=== PATIENT | male | born 1950 | race American Indian/Alaskan Native ===

== ENCOUNTER 2016-09-15 10:00 | Emergency (ER) | payer MEDICARE ==
--- NOTE | 2016-09-15 10:59 | Emergency Department Report ---
ED Syncope HPI - General Chief Complaint: Syncope Stated Complaint: PASSED OUT/HIT HEAD Time Seen by Provider: 09/15/16 10:46 - History of Present Illness Initial Comments: Patient is a 66-year-old male with a history of hypertension, hyperlipidemia who presents status post syncope yesterday. Patient reports he felt like he was going to pass out and then got up to get some air when he passed out and struck the left side of his head and his left hand on the steel door frame. She denies any prior hip history of syncope. Patient now complaining of left- sided swelling to the head, headache, left hand pain. Otherwise patient reports his in his normal state of health and feels like his normal baseline today. Otherwise no fevers, chills, dizziness, double vision, chest pain, shortness of breath, nausea, vomiting, diarrhea, abdominal pain, extremity pain , paresthesias, paralysis, gait difficulty, travel, or sick contacts. PMD: Dr. Villagran - Related Data Allergies/Adverse Reactions: Allergies No Known Allergies Allergy (Unverified 09/29/13 14:48) Home Medications: Ambulatory Orders amLODIPine [Norvasc] 10 mg PO DAILY #30 tab 09/30/13 Clopidogrel [Plavix] 75 mg PO QDAY #30 tablet 04/06/15 Aspirin [Adult Low Dose Aspirin EC] 81 mg PO DAILY 05/18/15 Adult Low Dose Aspirin EC 81 mg PO DAILY 09/15/16 Cetirizine HCl [Allergy Relief] 10 mg PO DAILY 09/15/16 Clopidogrel [Plavix] 75 mg PO QDAY 09/15/16 Gabapentin [Gralise] 600 mg PO QHS 09/15/16 Meloxicam [Mobic] 15 mg PO DAILY 09/15/16 Metoprolol [Lopressor] 12.5 mg PO BID 09/15/16 Oxycodone HCl/Acetaminophen [Percocet 10/325 mg] 1 each PO Q6HR PRN 09/15/16 Pantoprazole [Protonix] 40 mg PO QDAY 09/15/16 amLODIPine [Norvasc] 10 mg PO DAILY 09/15/16 ED Review of Systems ROS: Stated complaint: PASSED OUT/HIT HEAD Other details as noted in HPI Comment: All other systems reviewed and negative ED Past Medical Hx - Past Medical History Previous Medical History?: Yes Hx Hypertension: Yes Hx Congestive Heart Failure: No Hx Diabetes: No Hx Arthritis: Yes Hx Asthma: No Hx COPD: No Hx HIV: No - Surgical History Past Surgical History?: Yes Additional Surgical History: hernia, head sutures - Social History Smoking Status: Current Some Day Smoker Substance Use Type: Alcohol - Medications Home Medications: Home Medications Medication Instructions Recorded Confirmed Last Taken Type amLODIPine [Norvasc] 10 mg PO DAILY #30 tab 09/30/13 09/15/16 09/15/16 Rx Clopidogrel [Plavix] 75 mg PO QDAY #30 tablet 04/06/15 09/15/16 09/15/16 Rx Aspirin [Adult Low Dose Aspirin EC] 81 mg PO DAILY 05/18/15 09/15/16 09/15/16 History Adult Low Dose Aspirin EC 81 mg PO DAILY 09/15/16 09/15/16 09/15/16 History Cetirizine HCl [Allergy Relief] 10 mg PO DAILY 09/15/16 09/15/16 09/15/16 History Clopidogrel [Plavix] 75 mg PO QDAY 09/15/16 09/15/16 09/15/16 History Gabapentin [Gralise] 600 mg PO QHS 09/15/16 09/15/16 09/14/16 History Meloxicam [Mobic] 15 mg PO DAILY 09/15/16 09/15/16 09/15/16 History Metoprolol [Lopressor] 12.5 mg PO BID 09/15/16 09/15/16 09/15/16 History Oxycodone HCl/Acetaminophen 1 each PO Q6HR PRN 09/15/16 09/15/16 09/15/16 History [Percocet 10/325 mg] Pantoprazole [Protonix] 40 mg PO QDAY 09/15/16 09/15/16 09/15/16 History amLODIPine [Norvasc] 10 mg PO DAILY 09/15/16 09/15/16 09/15/16 History ED Physical Exam - General Limitations: No Limitations General appearance: alert, in no apparent distress - Head Head exam: Present: normocephalic, other (Large L sided scalp hematoma) - Eye Eye exam: Present: normal appearance, PERRL, EOMI. Absent: scleral icterus, conjunctival injection, nystagmus, periorbital swelling, periorbital tenderness Pupils: Present: normal accommodation - ENT ENT exam: Present: normal exam, normal orophraynx, mucous membranes moist - Neck Neck exam: Present: normal inspection - Respiratory Respiratory exam: Present: normal lung sounds bilaterally. Absent: respiratory distress - Cardiovascular Cardiovascular Exam: Present: regular rate, normal rhythm. Absent: systolic murmur, diastolic murmur, rubs, gallop - GI/Abdominal GI/Abdominal exam: Present: soft, normal bowel sounds - Rectal Rectal exam: Present: deferred - Extremities Exam Extremities exam: Present: tenderness (L hand) - Expanded Upper Extremity Exam Left General: Present: other (swelling and ecchymoses to L hand) Shoulder Exam: Present: normal inspection Upper Arm exam: Present: swelling, ecchymosis Elbow exam: Present: normal inspection, full ROM. Absent: tenderness Forearm Wrist exam: Present: normal inspection, full ROM. Absent: tenderness, swelling, deformity Hand Wrist exam: Present: normal inspection, full ROM. Absent: tenderness, swelling Hand L/R Front: 1 - Positive: other (Ecchymoses) Hand L/R Back: 1 - Swelling and ecchymoses Neuro motor exam: Present: wrist extension intact, thumb opposition intact, thumb IP flexion intact, thumb adduction intact, fingers 2-5 abduction intact Neurosensory exam: Present: 2-point discrimination Vascular: Present: normal capillary refill. Absent: vascular compromise - Back Exam Back exam: Present: normal inspection - Neurological Exam Neurological exam: Present: alert, oriented X3 - Psychiatric Psychiatric exam: Present: normal affect, normal mood - Skin Skin exam: Present: warm, dry, intact, normal color. Absent: rash ED Course Vital Signs 09/15/16 10:14 Temperature 98 F Pulse Rate 75 Respiratory 16 Rate Blood Pressure 147/98 O2 Sat by Pulse 99 Oximetry ED Medical Decision Making - Lab Data Result diagrams: 09/15/16 11:09/15/16 11:01 - EKG Data -: EKG Interpreted by Me - EKG Data 09/15/16 11:12 EKG 10:58 Normal sinus rhythm at 79 bpm, QTC 449 ms, T wave inversions in 2-3 aVF and V3 through V6, no ST changes, no STEMI No acute changes as compared to EKG from 05/18/2015 - Radiology Data Radiology results: report reviewed CT head: No acute intracranial findings, no prior change compared to 04/04/2015 CT C-spine: No acute fracture or subluxation, cervical spondylosis X-ray left hand: No Acute findings no fractures or dislocations - Medical Decision Making results discussed with patient. Pt to follow up with his pMD this week Potassium repleted with 40meq Critical care attestation.: If time is entered above; I have spent that time in minutes in the direct care of this critically ill patient, excluding procedure time. ED Disposition Clinical Impression: Syncope, Hematoma of scalp, Hand contusion Disposition: - TO HOME OR SELFCARE Is pt being admited?: No Condition: Stable Instructions: Syncope (ED), Scalp Contusion in Adults (ED), Contusion in Adults (ED) Referrals: PRIMARY CARE, [Referring] - 3-5 Days
--- NOTE | 2016-09-15 11:03 | Cat Scan Report ---
CT HEAD WITHOUT CONTRAST: HISTORY: Syncope, headache. TECHNIQUE: Sequential CT images without contrast. FINDINGS: Images obtained show bilateral prominence of the sulci and ventricles. There are no abnormal intra- or extra-axial blood or fluid collections. There are no focal masses or evidence of mass effect. The larios white matter differentiation appears within normal limits. Regions of periventricular decreased attenuation are consistent with microangiopathic ischemic disease. The posterior fossa structures including the fourth ventricle, cerebellum, and brainstem appear normal. IMPRESSION: Evidence of mild atrophy and microangiopathic ischemic disease. No acute intracranial process noted. No significant change since 04/04/15.
--- NOTE | 2016-09-15 11:40 | Cat Scan Report ---
CT SCAN OF THE CERVICAL SPINE: HISTORY: Neck pain. TECHNIQUE: Contiguous 1.25 mm axial images of the cervical spine were obtained. Sagittal and coronal reformatted images. FINDINGS: There is normal alignment of the cervical spine. The body, pedicles and posterior ligaments appear normal. No evidence of fracture or subluxation is seen. Moderate degenerative disc disease at C5-6 and C6-7 is noted. The spinal canal appears normal. The prevertebral soft tissues appear normal. IMPRESSION: Cervical spondylosis. No acute process is noted.
[2016-09-15 11:44] LABS: Basophils % (Auto) 0.6 % (0.0-1.8); Eosinophils % (Auto) 1.9 % (0.0-4.3); Hematocrit 44.3 % (35.5-45.6); Hemoglobin 14.5 gm/dl (11.8-15.2); Mean Corpuscular HGB Conc 33 % (32-34); Mean Corpuscular Hemoglobin 28 pg (28-32); Mean Corpuscular Volume 84 fl (84-94); Platelet Count 186 K/mm3 (140-440); Red Blood Count 5.26 M/mm3 (3.65-5.03); White Blood Count 13.2 K/mm3 (4.5-11.0)
--- NOTE | 2016-09-15 11:44 | XRay Report ---
LEFT HAND, 3 views: History: Trauma. The bony architecture is intact. Bony alignment is normal. No soft tissue abnormalities are seen. The joint spaces appear preserved. IMPRESSION: Unremarkable left hand.
[2016-09-15 11:58] LABS: Anion Gap 21 mmol/L; Blood Urea Nitrogen 17 mg/dL (9-20); Calcium 8.9 mg/dL (8.4-10.2); Carbon Dioxide 22 mmol/L (22-30); Chloride 99.5 mmol/L (98-107); Glucose 102 mg/dL (75-100); Potassium 3.2 mmol/L (3.6-5.0); Sodium 139 mmol/L (137-145)
[2016-09-15] MEDS ORDERED: K-DUR PO ONE (12:48)
[2016-09-15] MEDS ORDERED: MOTRIN PO ONE (12:56)
[2016-09-15 13:23] VITALS: BP 139/78
== END 2016-09-15 13:20 | disposition home or self-care (01) ==
LOC: ED 10:00
DX: R55 Syncope and collapse (principal); S00.03XA Contusion of scalp, initial encounter; S00.93XA Contusion of unspecified part of head, initial encounter; I10 Essential (primary) hypertension; F17.200 Nicotine dependence, unspecified, uncomplicated; W19.XXXA Unspecified fall, initial encounter; Y93.9 Activity, unspecified; Y92.9 Unspecified place or not applicable; Y99.9 Unspecified external cause status
CPT/HCPCS: 36415; 70450; 72125; 80048; 84484; 85025; 93005; 93010

== ENCOUNTER 2017-11-11 22:15 | Inpatient (IN) | payer MEDICAID, MEDICARE ==
[2017-11-11] MEDS ORDERED: NACL 0.9% 1000 ML IV ONE (22:47)
[2017-11-11] MEDS ORDERED: TYLENOL PR ONE (23:01)
[2017-11-11] MEDS ORDERED: PROVENTIL IH ONE (23:36)
[2017-11-11 23:41] LABS: Hematocrit 32.6 % (35.5-45.6); Hemoglobin 10.4 gm/dl (11.8-15.2); Mean Corpuscular HGB Conc 32 % (32-34); Mean Corpuscular Hemoglobin 27 pg (28-32); Mean Corpuscular Volume 85 fl (84-94); Platelet Count 105 K/mm3 (140-440); Red Blood Count 3.83 M/mm3 (3.65-5.03); Red Cell Distribution Width 17.4 % (13.2-15.2)
[2017-11-11] MEDS: ZOSYN/NS 4.5GM/100ML 4.5 GM/100 ML VIAL IV SCH (23:55)
[2017-11-11 23:58] LABS: Albumin 2.5 g/dL (3.9-5); Calcium 8.4 mg/dL (8.4-10.2)
[2017-11-12] MEDS ORDERED: ZOSYN/NS 3.375GM/50ML 3.375 GM/50 ML BAG IV SCH
[2017-11-12 00:05] LABS: Amorphous Crystals,Urine 3+; Bacteria,Urine 3+ /HPF (Negative); Bilirubin,Urine NEG (Negative); Blood,Urine NEG (Negative); Color,Urine Amber (Yellow); Hyaline Casts,Urine 76 /LPF; Mucus,Urine 2+ /HPF
[2017-11-12] MEDS ORDERED: ATIVAN IV ONE (00:06)
[2017-11-12] MEDS ORDERED: VANCOMYCIN 1,500 MG in NACL 0.9% 500 ML 500 ML IV ONE (00:07)
--- NOTE | 2017-11-12 00:09 | XRay Report ---
FINAL REPORT PROCEDURE: XR CHEST 1V AP TECHNIQUE: Chest radiograph anteroposterior view. CPT 61051 HISTORY: dyspnea COMPARISON: Prior chest x-ray 11/08/2017 FINDINGS: There is patchy alveolar density seen increasing in the right perihilar region extending into the right lower lobe. There is a small amount of patchy alveolar density also present in the left lung base inferiorly medially. No effusions are seen. Heart size and pulmonary vasculature appear normal. No acute bony abnormalities are identified. IMPRESSION: Increasing perihilar alveolar density on the right extending into the right lower lobe with persistent alveolar density in the left lower lobe inferior medially suggesting multifocal pneumonia or atelectasis. No effusions are seen. No other abnormalities are identified..
[2017-11-12 00:10] LABS: C-Reactive Protein 25.7 mg/dL (0.00-1.30)
[2017-11-12] MEDS ORDERED: NACL 0.9% 1000 ML 1,000 ML IV ONE ×2 (00:11→05:38)
[2017-11-12 00:27] LABS: Chol/HDL Ratio 3.41 %
[2017-11-12] MEDS ORDERED: QUELICIN ONE (00:44)
[2017-11-12] MEDS ORDERED: AMIDATE IV ONE ×2 (00:44→01:13)
[2017-11-12] MEDS ORDERED: NACL 0.9% 50 ML ONE (00:57)
[2017-11-12] MEDS ORDERED: VERSED IV ONE (01:10)
[2017-11-12] MEDS ORDERED: VERSED IV NR ×2 (01:11→02:00)
[2017-11-12 01:13] LABS: INR 1.28 (0.87-1.13); Partial Thromboplastin Time 31.7 Sec. (24.2-36.6)
[2017-11-12] MEDS ORDERED: QUELICIN IV ONE (01:13)
[2017-11-12] MEDS ORDERED: SUBLIMAZE IV ONE (01:13)
--- NOTE | 2017-11-12 01:49 | XRay Report ---
FINAL REPORT PROCEDURE: XR CHEST 1V AP TECHNIQUE: Chest radiograph anteroposterior view. CPT 63374 HISTORY: Post ET tube placement COMPARISON: No prior studies are available for comparison. FINDINGS: Heart: Normal. Mediastinum/Vessels: Normal. Lungs/Pleural space: There is atelectasis at the left lung base. There are focal patchy infiltrates bilaterally. There is no pleural effusion or pneumothorax.. Bony thorax: No acute osseous abnormality. Life support devices: The tip of the endotracheal tube is in the right mainstem bronchus and should be pulled back 4 centimeters.. IMPRESSION: The heart size is normal.. There is atelectasis at the left lung base. There are focal patchy infiltrates bilaterally. There is no pleural effusion or pneumothorax.. The tip of the endotracheal tube is in the right mainstem bronchus and should be pulled back [address] Navarro was notified by telephone at 12:47 a.m. [facility]
[2017-11-12] MEDS: LEVAQUIN 750MG/150ML 750 MG/150 ML BAG IV SCH (01:56)
[2017-11-12] MEDS ORDERED: fentaNYL DRIP Premix 2,000 MCG/100 ML BAG IV SCH (02:00)
[2017-11-12] MEDS ORDERED: PROVENTIL IH ONE (02:10)
[2017-11-12] MEDS: LEVOPHED DRIP 4 MG/NS 250 ML 4 MG/250 ML BAG IV SCH ×4 (02:20→20:05)
[2017-11-12] MEDS ORDERED: BABY ASPIRIN PO ONE (02:29)
--- NOTE | 2017-11-12 02:29 | Emergency Department Report ---
HPI - General Chief Complaint: Dyspnea/Respdistress Time Seen by Provider: 11/11/17 22:31 - HPI HPI: The patient is a 67-year-old male with a significant history of CVA with residual left-sided paralysis, CAD, CHF, and recent CEA and PEG tube placement, and whom presents for evaluation of increased work of breathing. Per the patient's daughter, for the past one to 2 days, the patient has exhibited progressive increased work of breathing, cough, and severe tachypnea for the past one day. ED Past Medical Hx - Past Medical History Hx Hypertension: Yes Hx CVA: Yes (left-sided weakness) Hx Congestive Heart Failure: No Hx Diabetes: No Hx Deep Vein Thrombosis: No Hx Arthritis: Yes Hx Asthma: No Hx COPD: No Hx HIV: No - Surgical History Hx Pacemaker: No Hx Internal Defibrillator: No Additional Surgical History: hernia, head sutures - Social History Smoking Status: Unknown if ever smoked Substance Use Type: None - Medications Home Medications: Home Medications Medication Instructions Recorded Confirmed Last Taken Type Aspirin [Adult Low Dose Aspirin EC] 81 mg PO DAILY 05/18/15 10/04/17 09/15/16 History Cetirizine HCl [Allergy Relief] 10 mg PO DAILY 09/15/16 10/04/17 09/15/16 History Clopidogrel [Plavix] 75 mg PO QDAY 09/15/16 10/04/17 09/15/16 History Meloxicam [Mobic] 15 mg PO DAILY 09/15/16 10/04/17 09/15/16 History Pantoprazole [Protonix TAB] 40 mg PO QDAY 09/15/16 10/04/17 09/15/16 History amLODIPine [Norvasc] 10 mg PO DAILY 09/15/16 10/04/17 09/15/16 History Metoprolol [Lopressor TAB] 25 mg PO BID #60 tablet 01/23/17 10/04/17 Unknown Rx ED Review of Systems ROS: Stated complaint: TEJ Other details as noted in HPI Constitutional: denies: fever ENT: denies: throat or neck pain Respiratory: denies: cough, shortness of breath Cardiovascular: denies: chest pain Endocrine: denies unexplained weight loss or gain Gastrointestinal: denies: abdominal pain, nausea Genitourinary: denies: dysuria Musculoskeletal: denies: leg swelling Skin: denies: rash Neurological: denies: headache Hematological/Lymphatic: denies: easy bleeding or easy bruising Psych: denies sadness or hopelessness Physical Exam - Physical Exam Vital Signs: Vital Signs 11/11/17 11/11/17 11/11/17 22:26 22:55 23:00 Temperature 102.5 F H Pulse Rate 135 H 138 H Pulse Rate [ 115 H Bilateral Throughout] Respiratory 32 H 55 H Rate Respiratory 40 H Rate [Bilateral Throughout] Blood Pressure 126/86 Blood Pressure 130/82 [Right] O2 Sat by Pulse 94 99 Oximetry 11/11/17 11/11/17 11/11/17 23:20 23:27 23:48 Temperature Pulse Rate 128 H 118 H Pulse Rate [ 115 H Bilateral Throughout] Respiratory 45 H 34 H Rate Respiratory 38 H Rate [Bilateral Throughout] Blood Pressure Blood Pressure 133/86 [Right] O2 Sat by Pulse 95 98 Oximetry 11/12/17 11/12/17 11/12/17 00:01 00:09 00:15 Temperature Pulse Rate 139 H 109 H 106 H Pulse Rate [ Bilateral Throughout] Respiratory 50 H 47 H 42 H Rate Respiratory Rate [Bilateral Throughout] Blood Pressure 148/79 156/85 156/85 Blood Pressure [Right] O2 Sat by Pulse 98 97 95 Oximetry 11/12/17 11/12/17 11/12/17 00:31 00:45 01:01 Temperature Pulse Rate 124 H 127 H 128 H Pulse Rate [ Bilateral Throughout] Respiratory 57 H 26 H 29 H Rate Respiratory Rate [Bilateral Throughout] Blood Pressure 125/74 114/59 172/80 Blood Pressure [Right] O2 Sat by Pulse 95 100 99 Oximetry 11/12/17 11/12/17 11/12/17 01:15 01:31 01:45 Temperature Pulse Rate 122 H Pulse Rate [ Bilateral Throughout] Respiratory 36 H 36 H 37 H Rate Respiratory Rate [Bilateral Throughout] Blood Pressure 113/76 114/59 93/55 Blood Pressure [Right] O2 Sat by Pulse 100 100 100 Oximetry 11/12/17 11/12/17 11/12/17 02:00 02:05 02:11 Temperature Pulse Rate 120 H 119 H 116 H Pulse Rate [ Bilateral Throughout] Respiratory 25 H 40 H 25 H Rate Respiratory Rate [Bilateral Throughout] Blood Pressure 83/56 77/51 100/64 Blood Pressure [Right] O2 Sat by Pulse 100 100 95 Oximetry 11/12/17 11/12/17 02:15 02:20 Temperature Pulse Rate 120 H 119 H Pulse Rate [ Bilateral Throughout] Respiratory 18 29 H Rate Respiratory Rate [Bilateral Throughout] Blood Pressure 89/59 82/58 Blood Pressure [Right] O2 Sat by Pulse 100 98 Oximetry ED Course Vital Signs 11/11/17 11/11/17 11/11/17 22:26 22:55 23:00 Temperature 102.5 F H Pulse Rate 135 H 138 H Pulse Rate [ 115 H Bilateral Throughout] Respiratory 32 H 55 H Rate Respiratory 40 H Rate [Bilateral Throughout] Blood Pressure 126/86 Blood Pressure 130/82 [Right] O2 Sat by Pulse 94 99 Oximetry 11/11/17 11/11/17 11/11/17 23:20 23:27 23:48 Temperature Pulse Rate 128 H 118 H Pulse Rate [ 115 H Bilateral Throughout] Respiratory 45 H 34 H Rate Respiratory 38 H Rate [Bilateral Throughout] Blood Pressure Blood Pressure 133/86 [Right] O2 Sat by Pulse 95 98 Oximetry 11/12/17 11/12/17 11/12/17 00:01 00:09 00:15 Temperature Pulse Rate 139 H 109 H 106 H Pulse Rate [ Bilateral Throughout] Respiratory 50 H 47 H 42 H Rate Respiratory Rate [Bilateral Throughout] Blood Pressure 148/79 156/85 156/85 Blood Pressure [Right] O2 Sat by Pulse 98 97 95 Oximetry 11/12/17 11/12/17 11/12/17 00:31 00:45 01:01 Temperature Pulse Rate 124 H 127 H 128 H Pulse Rate [ Bilateral Throughout] Respiratory 57 H 26 H 29 H Rate Respiratory Rate [Bilateral Throughout] Blood Pressure 125/74 114/59 172/80 Blood Pressure [Right] O2 Sat by Pulse 95 100 99 Oximetry 11/12/17 11/12/17 11/12/17 01:15 01:31 01:45 Temperature Pulse Rate 122 H Pulse Rate [ Bilateral Throughout] Respiratory 36 H 36 H 37 H Rate Respiratory Rate [Bilateral Throughout] Blood Pressure 113/76 114/59 93/55 Blood Pressure [Right] O2 Sat by Pulse 100 100 100 Oximetry 11/12/17 11/12/17 11/12/17 02:00 02:05 02:11 Temperature Pulse Rate 120 H 119 H 116 H Pulse Rate [ Bilateral Throughout] Respiratory 25 H 40 H 25 H Rate Respiratory Rate [Bilateral Throughout] Blood Pressure 83/56 77/51 100/64 Blood Pressure [Right] O2 Sat by Pulse 100 100 95 Oximetry 11/12/17 11/12/17 02:15 02:20 Temperature Pulse Rate 120 H 119 H Pulse Rate [ Bilateral Throughout] Respiratory 18 29 H Rate Respiratory Rate [Bilateral Throughout] Blood Pressure 89/59 82/58 Blood Pressure [Right] O2 Sat by Pulse 100 98 Oximetry - Reevaluation(s) Reevaluation #1: 11/12/17 04:25 Dr. Zavaleta on-call hospitalist was re-paged to be informed of final CTA of the chest results. - Central Line Placement Right Femoral Consent Obtained: emergent situation MD Prep: mask, gown, gloves Central Line Prep: Chlorhexidine scrub Local Anesthesia Used: Lidocaine 1% Amount of Anesthesia Used (mls): 5 Ultrasound Used for Placement: Yes Central Line Lumen Inserted: triple Bloods Obtained for Lab: Yes Central Line Position: good blood return, all ports aspirated, flus, sutured in place with nyl Dressing Applied: Tegaderm Patient Tolerated Procedure: well, no complications - Intubation Time Out Performed: Yes Sedative: Etomidate Mg Given: 20 Paralytic: Succinylcholine Mg Given: 100 Laryngoscope: fiberoptic video scope Size: 4 ET Tube Size: 7.5 Tube Secured Depth (cm): 24 Tube Secured Location: lips Tube Placement Confirmation: visualized tube passing t, equal breath sounds bilat, no breath sounds over epi, confirmation by capnometr Patient Tolerated Procedure: well, no complications Intubation Complications: none ED Medical Decision Making - Lab Data Result diagrams: 11/11/17 23:20 11/11/17 23:20 - Medical Decision Making The patient was seen and examined by myself. The patient is placed on a compliance monitor and continuous pulse ox. On initial evaluation, the patient was found to be in respiratory distress. CODE sepsis was called and patient was ordered IV Zosyn, IV Levaquin, and IV vancomycin for treatment of suspected HCAP. ABG was obtained and the patient was found to have normal PO2, with respiratory alkalosis. Evaluation orders were placed and the patient is given 30 cc/kg normal saline fluid bolus. The patient was given rectal Tylenol for his fever. X-ray of the chest reveal a right middle/lower lobe pneumonia, and left lower lobe atelectasis. Multiple bedside reassessment were performed to assess patient's responsiveness to BiPAP and resuscitative measures. Repeat ABG revealed patient now hypoxemic , pO2 in 60s. As patient remains in respiratory distress and is now hypoxemic, the patient requires intubation. Endotracheal intubation is performed successfully on first attempt. Lab results revealed elevated lactic acid >3, and mildly elevated troponin of 0.1. Medical records were reviewed and revealed that the patient received neurology consultation earlier this month recommending withholding of heparin administration out of concerning for potential bleeding due to right MCA infarct. The patient was given rectal aspirin for her elevated troponin level, and heparin is withheld. Repeat troponin revealed downtrending troponin level. 0100 Dr. Zavaleta, the on-call hospitalist was contacted regarding admission of the patient for treatment of septic shock. She requests CT angiogram of the chest results. During ED course the patient developed hypotension and a right femoral central line was placed. The patient started on a Levophed drip and his blood pressure increases to within normal limits. CT of the chest is negative for pulmonary embolism. Pneumoperitoneum identified on CT is consistent with recent surgery for PEG tube placement. Dr. Zavaleta was recontacted regarding admission of the patient, and she agreed to admit the patient for further treatment and close monitoring. The ED admit order was placed. The patient was admitted in critical condition. Critical Care Time: Yes Critical care time in (mins) excluding proc time.: 60 Critical care attestation.: Due to the critical nature of this patients presentation, which necessitated multiple bedside assessments, manipulation and supportive measures to prevent further life threatening deterioration, I would like to bill for a total of 60 minutes of critical care time. This was exclusive of any separately billable procedures. Critical Care Time: 60 minutes ED Disposition Clinical Impression: Septic shock, Lactic acid acidosis, Acute respiratory failure with hypoxemia Pneumonia Qualifiers: Pneumonia type: due to unspecified organism Laterality: right Lung location: middle lobe of lung Qualified Code(s): J18.1 - Lobar pneumonia, unspecified organism Disposition: OP ADMIT IP TO THIS HOSP Is pt being admited?: Yes Does the pt Need Aspirin: Yes Condition: Critical Instructions: Bacterial Pneumonia (ED) Referrals: PRIMARY CARE, [Primary Care Provider] - 3-5 Days Time of Disposition: 23:08
[2017-11-12] MEDS: DIPRIVAN 10 MG/ML 1,000 MG/100 ML BOTTLE IV SCH ×2 (04:07→19:25)
--- NOTE | 2017-11-12 04:23 | Cat Scan Report ---
FINAL REPORT PROCEDURE: CT ANGIO CHEST TECHNIQUE: Computerized tomographic angiography of the chest was performed after the IV injection of iodinated nonionic contrast including image processing. The image data was postprocessed using 2-dimensional multiplanar reformatted (MPR) and 3-dimensional (MIP and/or volume rendered) techniques. HISTORY: dyspnea COMPARISON: No prior studies are available for comparison. FINDINGS: Heart and pericardium: Normal. Thoracic aorta: There is no thoracic aortic aneurysm or dissection.. Pulmonary vasculature: There is no pulmonary embolism.. Lymph nodes: No enlarged thoracic lymph nodes. Lungs: There is complete atelectasis of the left lung causing volume loss and mediastinal shift to the left. This is due to blockage of the left bronchus by the endotracheal tube which is in the right mainstem bronchus. Pleural space: There is no pleural effusion or pneumothorax.. Musculoskeletal structures: No significant abnormality. Upper abdominal structures: There is pneumoperitoneum and ascites.. IMPRESSION: There is no thoracic aortic aneurysm or dissection.. There is no pulmonary embolism.. There is complete atelectasis of the left lung causing volume loss and mediastinal shift to the left. This is due to blockage of the left bronchus by the endotracheal tube which is in the right mainstem bronchus. There is no pleural effusion or pneumothorax.. There is pneumoperitoneum and ascites.. Dr. Navarro was notified by telephone at 3:20 a.[address]. [facility]
[2017-11-12] MEDS ORDERED: ASPIRIN PR ONE (04:36)
[2017-11-12 04:46] LABS: Anisocytosis 1+; Band Neutrophils # (Manual) 2.3 K/mm3; Basophils % (Manual) 0 % (0.0-1.8); Eosinophils % (Manual) 0 % (0.0-4.3); Ovalocytes 1+; Platelet Estimate Consistent w Auto; Total Cells Counted 100
--- NOTE | 2017-11-12 05:05 | XRay Report ---
FINAL REPORT PROCEDURE: XR CHEST 1V AP TECHNIQUE: Chest radiograph anteroposterior view. CPT 81356 HISTORY: ett readjustment confirmation COMPARISON: No prior studies are available for comparison. FINDINGS: Heart: Normal. Mediastinum/Vessels: Normal. Lungs/Pleural space: There right perihilar infiltrates. There is a small left pleural effusion.. Bony thorax: No acute osseous abnormality. Life support devices: There is an endotracheal tube in the mid trachea. There is an NG tube in the stomach.. IMPRESSION: Heart size is normal.. There right perihilar infiltrates. There is a small left pleural effusion.. Left lung is re-expanded. There is an endotracheal tube in the mid trachea. There is an NG tube in the stomach..
[2017-11-12] MEDS ORDERED: SODIUM CHLORIDE FLUSH SYRINGE 10 ML IV PRN (05:38)
[2017-11-12] MEDS ORDERED: ZOFRAN IV PRN (05:38)
[2017-11-12] MEDS ORDERED: PROTONIX IV ONE (05:38)
--- NOTE | 2017-11-12 05:58 | History and Physical Report ---
History of Present Illness Date of examination: 11/12/17 History of present illness: 67-year-old man with a history of hypertension,recent CVA, coronary artery disease was just discharged from the hospital 2 days ago return to the emergency room with complaints of cough, shortness of breath. Patient was placed on BiPAP however he failed, he was subsequently intubated. A review of system is unobtainable, unable to reach family. He was started on Levophed drip , sedation, IV Zosyn and vancomycin. Previous admission reviewed PAST MEDICAL HISTORY:hypertension, CVA, coronary artery disease PAST SURGICAL HISTORY: Hernia repair, CEA, peg FAMILY HISTORY: Hypertension SOCIAL HISTORY: Previous alcohol and tobacco use, no drugs Medications and Allergies Allergies Allergy/AdvReac Type Severity Reaction Status Date / Time adhesive tape AdvReac SKIN TEAR Verified 10/09/17 13:53 Home Medications Medication Instructions Recorded Confirmed Last Taken Type Aspirin [Adult Low Dose Aspirin EC] 81 mg PO DAILY 05/18/15 11/13/17 09/15/16 History Cetirizine HCl [Allergy Relief] 10 mg PO DAILY 09/15/16 11/13/17 09/15/16 History Clopidogrel [Plavix] 75 mg PO QDAY 09/15/16 11/13/17 09/15/16 History Meloxicam [Mobic] 15 mg PO DAILY 09/15/16 11/13/17 09/15/16 History Pantoprazole [Protonix TAB] 40 mg PO QDAY 09/15/16 11/13/17 09/15/16 History amLODIPine [Norvasc] 10 mg PO DAILY 09/15/16 11/13/17 09/15/16 History Metoprolol [Lopressor TAB] 25 mg PO BID #60 tablet 01/23/17 11/13/17 Unknown Rx Active Meds: Active Medications Acetaminophen (Tylenol) 650 mg [place] Q4H PRN PRN Reason: Pain MILD(1-3)/Fever >100.5/CABELLO Piperacillin Sod/Tazobactam Sod (Zosyn/Ns 4.5gm/100ml) 4.5 gm in 100 mls @ 200 mls/hr IV Q8HR [facility]; Protocol Last Admin: 11/11/17 23:55 Dose: 200 mls/hr Levofloxacin/Dextrose (Levaquin 750mg/150ml) 750 mg in 150 mls @ 100 mls/hr IV Q48H [facility]; Protocol Last Admin: 11/12/17 01:56 Dose: 100 mls/hr Fentanyl Citrate (Fentanyl Drip Premix) 2,000 mcg in 100 mls @ 3.969 mls/hr IV TITR [facility]; Protocol Last Titration: 11/12/17 04:07 Dose: 5 mcg/kg/hr, 19.845 mls/hr Propofol (Diprivan 10 Mg/Ml) 1,000 mg in 100 mls @ 2.381 mls/hr IV TITR [facility]; Protocol Last Titration: 11/12/17 05:32 Dose: 10 mcg/kg/min, 4.763 mls/hr Norepinephrine (Levophed Drip 4 Mg/Ns 250 Ml) 4 mg in 250 mls @ 7.5 mls/hr IV TITR [facility]; Protocol Last Titration: 11/12/17 05:33 Dose: 8 mcg/min, 30 mls/hr Sodium Chloride (Nacl 0.9% 1000 Ml) 1,000 mls @ 150 mls/hr IV DIRECT [facility] Sodium Chloride (Nacl 0.9% 1000 Ml) 1,000 mls @ 999 mls/hr IV ONCE ONE Stop: 11/12/17 06:38 Ondansetron HCl (Zofran) 4 mg IV Q8H PRN PRN Reason: Nausea And Vomiting Sodium Chloride (Sodium Chloride Flush Syringe 10 Ml) 10 ml IV BID [facility] Sodium Chloride (Sodium Chloride Flush Syringe 10 Ml) 10 ml IV PRN PRN PRN Reason: LINE FLUSH Exam - Physical Exam Narrative exam: PGen. appearance: Patient lying in bed in no acute distress HEENT: Normocephalic/atraumatic, pupils equal round reactive to light, extra alkaline movement intact, no scleral icterus, no JVD or thyromegaly or nodule, neck is supple, mucous membrane moist, no erythema or exudate Heart: S1-S2, regular rate and rhythm Lungs: Clear to auscultation bilateral breathing comfortable Abdomen: Positive bowel sounds, nontender, nondistended, no organomegaly Extremities: No edema, cyanosis, clubbing Neuro:: Oriented 3 , cranial nerves II-12 intact, speech, motor intact Skin: No rash, nodules, warm dry - Constitutional Vitals: Temp Pulse Resp BP Pulse Ox 102.5 F H 112 H 39 H 100/62 100 11/11/17 22:55 11/12/17 05:00 11/12/17 05:00 11/12/17 05:00 11/12/17 05:00 Results - Labs CBC & Chem 7: 11/20/17 00:38 11/20/17 03:29 Labs: Abnormal lab results 11/11/17 11/11/17 11/11/17 Range/Units 23:18 23:20 23:20 Hgb 10.4 L (11.8-15.2) gm/dl Hct 32.6 L D (35.5-45.6) % MCH 27 L (28-32) pg RDW 17.4 H (13.2-15.2) % Plt Count 105 L (140-440) K/mm3 Lymphocytes % (Manual) 8.0 L (13.4-35.0) % Nucleated RBC % 1.0 H (0.0-0.9) % Lymphocytes # (Manual) 0.7 L (1.2-5.4) K/mm3 PT (12.2-14.9) Sec. INR (0.87-1.13) POC ABG pH 7.550 H (7.35-7.45) POC ABG pCO2 31.6 L (35-45) POC ABG pO2 (80-105) Sodium 146 H (137-145) mmol/L BUN 26 H (9-20) mg/dL Creatinine 1.7 H D (0.8-1.5) mg/dL Glucose 133 H (75-100) mg/dL Lactic Acid (0.7-2.0) mmol/L Troponin T 0.117 H* (0.00-0.029) ng/mL C-Reactive Protein (0.00-1.30) mg/dL Albumin 2.5 L (3.9-5) g/dL LDL Cholesterol Direct 42 L (50-130) mg/dL HDL Cholesterol 24 L (40-59) mg/dL 11/11/17 11/12/17 11/12/17 Range/Units 23:20 00:23 00:23 Hgb (11.8-15.2) gm/dl Hct (35.5-45.6) % MCH (28-32) pg RDW (13.2-15.2) % Plt Count (140-440) K/mm3 Lymphocytes % (Manual) (13.4-35.0) % Nucleated RBC % (0.0-0.9) % Lymphocytes # (Manual) (1.2-5.4) K/mm3 PT 16.7 H (12.2-14.9) Sec. INR 1.28 H (0.87-1.13) POC ABG pH (7.35-7.45) POC ABG pCO2 (35-45) POC ABG pO2 (80-105) Sodium (137-145) mmol/L BUN (9-20) mg/dL Creatinine (0.8-1.5) mg/dL Glucose (75-100) mg/dL Lactic Acid 3.20 H* (0.7-2.0) mmol/L Troponin T (0.00-0.029) ng/mL C-Reactive Protein 25.70 H (0.00-1.30) mg/dL Albumin (3.9-5) g/dL LDL Cholesterol Direct (50-130) mg/dL HDL Cholesterol (40-59) mg/dL 11/12/17 11/12/17 11/12/17 Range/Units 00:46 01:27 01:27 Hgb (11.8-15.2) gm/dl Hct (35.5-45.6) % MCH (28-32) pg RDW (13.2-15.2) % Plt Count (140-440) K/mm3 Lymphocytes % (Manual) (13.4-35.0) % Nucleated RBC % (0.0-0.9) % Lymphocytes # (Manual) (1.2-5.4) K/mm3 PT (12.2-14.9) Sec. INR (0.87-1.13) POC ABG pH 7.495 H (7.35-7.45) POC ABG pCO2 32.0 L (35-45) POC ABG pO2 64 L (80-105) Sodium (137-145) mmol/L BUN (9-20) mg/dL Creatinine (0.8-1.5) mg/dL Glucose (75-100) mg/dL Lactic Acid 3.70 H* (0.7-2.0) mmol/L Troponin T 0.096 H (0.00-0.029) ng/mL C-Reactive Protein (0.00-1.30) mg/dL Albumin (3.9-5) g/dL LDL Cholesterol Direct (50-130) mg/dL HDL Cholesterol (40-59) mg/dL 11/12/17 11/12/17 11/12/17 Range/Units 03:21 Unknown Unknown Hgb (11.8-15.2) gm/dl Hct (35.5-45.6) % MCH (28-32) pg RDW (13.2-15.2) % Plt Count (140-440) K/mm3 Lymphocytes % (Manual) (13.4-35.0) % Nucleated RBC % (0.0-0.9) % Lymphocytes # (Manual) (1.2-5.4) K/mm3 PT (12.2-14.9) Sec. INR (0.87-1.13) POC ABG pH (7.35-7.45) POC ABG pCO2 (35-45) POC ABG pO2 (80-105) Sodium (137-145) mmol/L BUN (9-20) mg/dL Creatinine (0.8-1.5) mg/dL Glucose (75-100) mg/dL Lactic Acid 3.80 H* 3.60 H* (0.7-2.0) mmol/L Troponin T 0.098 H (0.00-0.029) ng/mL C-Reactive Protein (0.00-1.30) mg/dL Albumin (3.9-5) g/dL LDL Cholesterol Direct (50-130) mg/dL HDL Cholesterol (40-59) mg/dL - Imaging and Cardiology EKG: report reviewed Chest x-ray: report reviewed CT scan - chest: report reviewed Assessment and Plan Assessment Acute respiratory failure Septic shock Abnormal cardiac enzymes Coffee-ground material from NG tube Coronary artery disease Thrombocytopenia Recent CVA Plan Admit to medicine Start IV fluid, continue Zosyn, vancomycin, follow cultures Start Protonix, check serial hemoglobin, consult GI Check cardiac enzymes, consult cardiology, critical care Continue appropriate outpatient medications DVT prophylaxis
[2017-11-12] MEDS: NACL 0.9% 1000 ML 1,000 ML IV SCH ×2 (08:00→18:00)
--- NOTE | 2017-11-12 09:06 | Consultation ---
History of Present Illness Consult date: 11/12/17 Requesting physician: HOLLAND WOODS History of present illness: PULMONARY/CCM CONSULT NOTE (Full dictation # [id number]) Please see dictated notes for full details Medications and Allergies Allergies Allergy/AdvReac Type Severity Reaction Status Date / Time adhesive tape AdvReac SKIN TEAR Verified 10/09/17 13:53 Home Medications Medication Instructions Recorded Confirmed Last Taken Type Aspirin [Adult Low Dose Aspirin EC] 81 mg PO DAILY 05/18/15 10/04/17 09/15/16 History Cetirizine HCl [Allergy Relief] 10 mg PO DAILY 09/15/16 10/04/17 09/15/16 History Clopidogrel [Plavix] 75 mg PO QDAY 09/15/16 10/04/17 09/15/16 History Meloxicam [Mobic] 15 mg PO DAILY 09/15/16 10/04/17 09/15/16 History Pantoprazole [Protonix TAB] 40 mg PO QDAY 09/15/16 10/04/17 09/15/16 History amLODIPine [Norvasc] 10 mg PO DAILY 09/15/16 10/04/17 09/15/16 History Metoprolol [Lopressor TAB] 25 mg PO BID #60 tablet 01/23/17 10/04/17 Unknown Rx Active Meds: Active Medications Acetaminophen (Tylenol) 650 mg [place] Q4H PRN PRN Reason: Pain MILD(1-3)/Fever >100.5/CABELLO Piperacillin Sod/Tazobactam Sod (Zosyn/Ns 4.5gm/100ml) 4.5 gm in 100 mls @ 200 mls/hr IV Q8HR [facility]; Protocol Last Admin: 11/11/17 23:55 Dose: 200 mls/hr Levofloxacin/Dextrose (Levaquin 750mg/150ml) 750 mg in 150 mls @ 100 mls/hr IV Q48H [facility]; Protocol Last Admin: 11/12/17 01:56 Dose: 100 mls/hr Fentanyl Citrate (Fentanyl Drip Premix) 2,000 mcg in 100 mls @ 3.969 mls/hr IV TITR [facility]; Protocol Last Titration: 11/12/17 04:07 Dose: 5 mcg/kg/hr, 19.845 mls/hr Propofol (Diprivan 10 Mg/Ml) 1,000 mg in 100 mls @ 2.381 mls/hr IV TITR [facility]; Protocol Last Titration: 11/12/17 05:32 Dose: 10 mcg/kg/min, 4.763 mls/hr Norepinephrine (Levophed Drip 4 Mg/Ns 250 Ml) 4 mg in 250 mls @ 7.5 mls/hr IV TITR [facility]; Protocol Last Titration: 11/12/17 05:33 Dose: 8 mcg/min, 30 mls/hr Sodium Chloride (Nacl 0.9% 1000 Ml) 1,000 mls @ 150 mls/hr IV DIRECT [facility] Vancomycin HCl 1,250 mg/ (Sodium Chloride) 275 mls @ 166.667 mls/hr IV Q24H [facility] Ondansetron HCl (Zofran) 4 mg IV Q8H PRN PRN Reason: Nausea And Vomiting Pantoprazole Sodium (Protonix) 40 mg IV BID [facility] Sodium Chloride (Sodium Chloride Flush Syringe 10 Ml) 10 ml IV BID [facility] Sodium Chloride (Sodium Chloride Flush Syringe 10 Ml) 10 ml IV PRN PRN PRN Reason: LINE FLUSH Physical Examination Vital signs: Vital Signs Pulse Resp BP Pulse Ox 135 H 32 H 126/86 94 11/11/17 22:26 11/11/17 22:26 11/11/17 22:26 11/11/17 22:26 Results - Laboratory Findings CBC and BMP: 11/12/17 09:24 11/11/17 23:20 ABG POC ABG pH 7.426 (7.35-7.45) 11/12/17 06:27 POC ABG pCO2 36.1 (35-45) 11/12/17 06:27 POC ABG pO2 109 (80-105) H 11/12/17 06:27 POC ABG HCO3 23.7 11/12/17 06:27 POC ABG Total CO2 25 11/12/17 06:27 POC ABG O2 Sat 98 11/12/17 06:27 PT/INR, D-dimer PT 16.7 Sec. (12.2-14.9) H 11/12/17 00:23 INR 1.28 (0.87-1.13) H 11/12/17 00:23 Abnormal lab findings: Abnormal Labs 11/11/17 11/11/17 11/11/17 23:18 23:20 23:20 Hgb 10.4 L Hct 32.6 L D MCH 27 L RDW 17.4 H Plt Count 105 L Lymphocytes % (Manual) 8.0 L Nucleated RBC % 1.0 H Lymphocytes # (Manual) 0.7 L PT INR POC ABG pH 7.550 H POC ABG pCO2 31.6 L POC ABG pO2 Sodium 146 H BUN 26 H Creatinine 1.7 H D Glucose 133 H Lactic Acid Troponin T 0.117 H* C-Reactive Protein Albumin 2.5 L LDL Cholesterol Direct 42 L HDL Cholesterol 24 L 11/11/17 11/12/17 11/12/17 23:20 00:23 00:23 Hgb Hct MCH RDW Plt Count Lymphocytes % (Manual) Nucleated RBC % Lymphocytes # (Manual) PT 16.7 H INR 1.28 H POC ABG pH POC ABG pCO2 POC ABG pO2 Sodium BUN Creatinine Glucose Lactic Acid 3.20 H* Troponin T C-Reactive Protein 25.70 H Albumin LDL Cholesterol Direct HDL Cholesterol 11/12/17 11/12/17 11/12/17 00:46 01:27 01:27 Hgb Hct MCH RDW Plt Count Lymphocytes % (Manual) Nucleated RBC % Lymphocytes # (Manual) PT INR POC ABG pH 7.495 H POC ABG pCO2 32.0 L POC ABG pO2 64 L Sodium BUN Creatinine Glucose Lactic Acid 3.70 H* Troponin T 0.096 H C-Reactive Protein Albumin LDL Cholesterol Direct HDL Cholesterol 11/12/17 11/12/17 11/12/17 03:21 06:27 Unknown Hgb Hct MCH RDW Plt Count Lymphocytes % (Manual) Nucleated RBC % Lymphocytes # (Manual) PT INR POC ABG pH POC ABG pCO2 POC ABG pO2 109 H Sodium BUN Creatinine Glucose Lactic Acid 3.80 H* 3.60 H* Troponin T C-Reactive Protein Albumin LDL Cholesterol Direct HDL Cholesterol 11/12/17 Unknown Hgb Hct MCH RDW Plt Count Lymphocytes % (Manual) Nucleated RBC % Lymphocytes # (Manual) PT INR POC ABG pH POC ABG pCO2 POC ABG pO2 Sodium BUN Creatinine Glucose Lactic Acid Troponin T 0.098 H C-Reactive Protein Albumin LDL Cholesterol Direct HDL Cholesterol
[2017-11-12 09:53] LABS: Hematocrit 33.4 % (35.5-45.6); Hemoglobin 10.4 gm/dl (11.8-15.2)
--- NOTE | 2017-11-12 09:57 | Gastroenterology Consultation ---
<LUCIO DAMIAN - Last Filed: 11/12/17 10:28> History of Present Illness - Reason for Consult Consult date: 11/12/17 coffee-ground emesis Requesting physician: HOLLAND WOODS - History of Present Illness Patient is a 67 y/o male with PMH of HTN, OA, CVA and CAD who presented to ED with c/o SOB, labored breathing, and cough after being d/c on 11/10 to skilled nursing following a recent hospitalization for CVA (s/p right carotid enarterectomy 10/09 and open thrombectomy of right internal carotid artery and injection of TPA into distal artery 10/10). Upon admission he was found to have sepsis along with respiratory distress. Chest x-ray revealed a right middle/ lower lobe pneumonia and left lower lobe atelectasis. He is currently in ICU, intubated and on pressor support. GI has been consulted for coffee ground emesis. Patient is previously known to our service from a consult just last week for a PEG tube placement. This morning patient was resting in bed. No family at bedside. History obtained via nursing and chart review. There is a small amount of coffee-ground drainage in OG tube. No hematemesis, melena, or hematochezia. Abdomen benign upon exam. PEG tube patent and intact. PEG site w/ o redness, swelling, odor, drainage, or bleeding. On Plavix and ASA at home. Past History Past Medical History: arthritis, CAD, hypertension, stroke Past Surgical History: hernia repair, Other (CEA, PEG) Social history: other (skilled nursing resident) Family history: hypertension Medications and Allergies Allergies Allergy/AdvReac Type Severity Reaction Status Date / Time adhesive tape AdvReac SKIN TEAR Verified 10/09/17 13:53 Home Medications Medication Instructions Recorded Confirmed Last Taken Type Aspirin [Adult Low Dose Aspirin EC] 81 mg PO DAILY 05/18/15 10/04/17 09/15/16 History Cetirizine HCl [Allergy Relief] 10 mg PO DAILY 09/15/16 10/04/17 09/15/16 History Clopidogrel [Plavix] 75 mg PO QDAY 09/15/16 10/04/17 09/15/16 History Meloxicam [Mobic] 15 mg PO DAILY 09/15/16 10/04/17 09/15/16 History Pantoprazole [Protonix TAB] 40 mg PO QDAY 09/15/16 10/04/17 09/15/16 History amLODIPine [Norvasc] 10 mg PO DAILY 09/15/16 10/04/17 09/15/16 History Metoprolol [Lopressor TAB] 25 mg PO BID #60 tablet 01/23/17 10/04/17 Unknown Rx Active Meds: Active Medications Acetaminophen (Tylenol) 650 mg [place] Q4H PRN PRN Reason: Pain MILD(1-3)/Fever >100.5/CABELLO Piperacillin Sod/Tazobactam Sod (Zosyn/Ns 4.5gm/100ml) 4.5 gm in 100 mls @ 200 mls/hr IV Q8HR [facility]; Protocol Last Admin: 11/11/17 23:55 Dose: 200 mls/hr Levofloxacin/Dextrose (Levaquin 750mg/150ml) 750 mg in 150 mls @ 100 mls/hr IV Q48H [facility]; Protocol Last Admin: 11/12/17 01:56 Dose: 100 mls/hr Fentanyl Citrate (Fentanyl Drip Premix) 2,000 mcg in 100 mls @ 3.969 mls/hr IV TITR [facility]; Protocol Last Titration: 11/12/17 04:07 Dose: 5 mcg/kg/hr, 19.845 mls/hr Propofol (Diprivan 10 Mg/Ml) 1,000 mg in 100 mls @ 2.381 mls/hr IV TITR [facility]; Protocol Last Titration: 11/12/17 05:32 Dose: 10 mcg/kg/min, 4.763 mls/hr Norepinephrine (Levophed Drip 4 Mg/Ns 250 Ml) 4 mg in 250 mls @ 7.5 mls/hr IV TITR [facility]; Protocol Last Titration: 11/12/17 05:33 Dose: 8 mcg/min, 30 mls/hr Sodium Chloride (Nacl 0.9% 1000 Ml) 1,000 mls @ 150 mls/hr IV DIRECT [facility] Vancomycin HCl 1,250 mg/ (Sodium Chloride) 275 mls @ 166.667 mls/hr IV Q24H [facility] Ondansetron HCl (Zofran) 4 mg IV Q8H PRN PRN Reason: Nausea And Vomiting Pantoprazole Sodium (Protonix) 40 mg IV BID [facility] Sodium Chloride (Sodium Chloride Flush Syringe 10 Ml) 10 ml IV BID [facility] Sodium Chloride (Sodium Chloride Flush Syringe 10 Ml) 10 ml IV PRN PRN PRN Reason: LINE FLUSH Review of Systems - Review of Systems ROS unobtainable: due to endotracheal tube, due to mental status Exam - Constitutional Vital Signs: Temp Pulse Resp BP Pulse Ox 99.9 F H 151 H 40 H 104/68 100 11/12/17 08:00 11/12/17 06:30 11/12/17 06:30 11/12/17 06:30 11/12/17 06:30 General appearance: other (intubated and on pressor support) - EENT ENT: other (+ETT, +OGT) - Respiratory Respiratory: bilateral: diminished - Cardiovascular Rhythm: other (tachycardia) - Gastrointestinal General gastrointestinal: Present: soft, non-distended, normal bowel sounds, other (+PEG) - Neurologic Neurological: other (unable to assess) - Labs CBC & Chem 7: 11/12/17 09:24 11/11/17 23:20 Lab Results: Laboratory Results - last 24 hr 11/11/17 11/11/17 11/11/17 23:09 23:18 23:20 WBC 8.7 RBC 3.83 Hgb 10.4 L Hct 32.6 L D MCV 85 MCH 27 L MCHC 32 RDW 17.4 H Plt Count 105 L Add Manual Diff Complete Total Counted 100 Seg Neuts % (Manual) 58.0 Band Neutrophils % 27.0 Lymphocytes % (Manual) 8.0 L Reactive Lymphs % (Man) 0 Monocytes % (Manual) 7.0 Eosinophils % (Manual) 0 Basophils % (Manual) 0 Metamyelocytes % 0 Myelocytes % 0 Promyelocytes % 0 Blast Cells % 0 Nucleated RBC % 1.0 H Seg Neutrophils # Man 5.0 Band Neutrophils # 2.3 Lymphocytes # (Manual) 0.7 L Abs React Lymphs (Man) 0.0 Monocytes # (Manual) 0.6 Eosinophils # (Manual) 0.0 Basophils # (Manual) 0.0 Metamyelocytes # 0.0 Myelocytes # 0.0 Promyelocytes # 0.0 Blast Cells # 0.0 WBC Morphology Not Reportable Hypersegmented Neuts Not Reportable Hyposegmented Neuts Not Reportable Hypogranular Neuts Not Reportable Smudge Cells Not Reportable Toxic Granulation Not Reportable Toxic Vacuolation Not Reportable Dohle Bodies Not Reportable Pelger-Huet Anomaly Not Reportable Evangelina Rods Not Reportable Platelet Estimate Consistent w auto Clumped Platelets Not Reportable Plt Clumps, EDTA Not Reportable Large Platelets Not Reportable Giant Platelets Not Reportable Platelet Satelliting Not Reportable Plt Morphology Comment Not Reportable RBC Morphology Not Reportable Dimorphic RBCs Not Reportable Polychromasia Not Reportable Hypochromasia Not Reportable Poikilocytosis Not Reportable Anisocytosis 1+ Microcytosis Not Reportable Macrocytosis Not Reportable Spherocytes Not Reportable Pappenheimer Bodies Not Reportable Sickle Cells Not Reportable Target Cells Not Reportable Tear Drop Cells Not Reportable Ovalocytes 1+ Helmet Cells Not Reportable Dukes-[place] Bodies Not Reportable [place] Rings Not Reportable [place] Cells Not Reportable Bite Cells Not Reportable Crenated Cell Not Reportable Elliptocytes Not Reportable Acanthocytes (Spur) Not Reportable Rouleaux Not Reportable Hemoglobin C Crystals Not Reportable Schistocytes Not Reportable Malaria parasites Not Reportable [place] Bodies Not Reportable Hem Pathologist Commnt No PT INR APTT POC ABG pH 7.550 H POC ABG pCO2 31.6 L POC ABG pO2 90 POC ABG HCO3 27.7 POC ABG Total CO2 29 POC ABG O2 Sat 98 POC ABG Base Excess 5 FiO2 100 Sodium Potassium Chloride Carbon Dioxide Anion Gap BUN Creatinine Estimated GFR BUN/Creatinine Ratio Glucose Lactic Acid Calcium Total Bilirubin AST ALT Alkaline Phosphatase Total Creatine Kinase Troponin T C-Reactive Protein NT-Pro-B Natriuret Pep Total Protein Albumin Albumin/Globulin Ratio Triglycerides Cholesterol LDL Cholesterol Direct HDL Cholesterol Cholesterol/HDL Ratio Lipase Urine Color Nicole Urine Turbidity Cloudy Urine pH 5.0 Ur Specific [place] 1.025 Urine Protein 100 mg/dl Urine Glucose (UA) 50 Urine Ketones Neg Urine Blood Neg Urine Nitrite Neg Urine Bilirubin Neg Urine Urobilinogen 4.0 Ur Leukocyte Esterase Neg Urine WBC (Auto) 5.0 Urine RBC (Auto) 4.0 Urine Bacteria (Auto) 3+ Amorphous Crystals 3+ Hyaline Casts 76 Urine Mucus 2+ 11/11/17 11/11/17 11/12/17 23:20 23:20 00:23 WBC RBC Hgb Hct MCV MCH MCHC RDW Plt Count Add Manual Diff Total Counted Seg Neuts % (Manual) Band Neutrophils % Lymphocytes % (Manual) Reactive Lymphs % (Man) Monocytes % (Manual) Eosinophils % (Manual) Basophils % (Manual) Metamyelocytes % Myelocytes % Promyelocytes % Blast Cells % Nucleated RBC % Seg Neutrophils # Man Band Neutrophils # Lymphocytes # (Manual) Abs React Lymphs (Man) Monocytes # (Manual) Eosinophils # (Manual) Basophils # (Manual) Metamyelocytes # Myelocytes # Promyelocytes # Blast Cells # WBC Morphology Hypersegmented Neuts Hyposegmented Neuts Hypogranular Neuts Smudge Cells Toxic Granulation Toxic Vacuolation Dohle Bodies Pelger-Huet Anomaly Evangelina Rods Platelet Estimate Clumped Platelets Plt Clumps, EDTA Large Platelets Giant Platelets Platelet Satelliting Plt Morphology Comment RBC Morphology Dimorphic RBCs Polychromasia Hypochromasia Poikilocytosis Anisocytosis Microcytosis Macrocytosis Spherocytes Pappenheimer Bodies Sickle Cells Target Cells Tear Drop Cells Ovalocytes Helmet Cells Dukes-[place] Bodies [place] Rings [place] Cells Bite Cells Crenated Cell Elliptocytes Acanthocytes (Spur) Rouleaux Hemoglobin C Crystals Schistocytes Malaria parasites [place] Bodies Hem Pathologist Commnt PT INR APTT POC ABG pH POC ABG pCO2 POC ABG pO2 POC ABG HCO3 POC ABG Total CO2 POC ABG O2 Sat POC ABG Base Excess FiO2 Sodium 146 H Potassium 4.3 Chloride 105.0 Carbon Dioxide 24 D Anion Gap 21 BUN 26 H Creatinine 1.7 H D Estimated GFR 49 BUN/Creatinine Ratio 15 Glucose 133 H Lactic Acid 3.20 H* Calcium 8.4 Total Bilirubin 1.10 AST 27 ALT 40 Alkaline Phosphatase 90 Total Creatine Kinase 57 Troponin T 0.117 H* C-Reactive Protein 25.70 H NT-Pro-B Natriuret Pep 792.4 Total Protein 6.5 Albumin 2.5 L Albumin/Globulin Ratio 0.6 Triglycerides 86 Cholesterol 82 LDL Cholesterol Direct 42 L HDL Cholesterol 24 L Cholesterol/HDL Ratio 3.41 Lipase 30 Urine Color Urine Turbidity Urine pH Ur Specific [place] Urine Protein Urine Glucose (UA) Urine Ketones Urine Blood Urine Nitrite Urine Bilirubin Urine Urobilinogen Ur Leukocyte Esterase Urine WBC (Auto) Urine RBC (Auto) Urine Bacteria (Auto) Amorphous Crystals Hyaline Casts Urine Mucus 11/12/17 11/12/17 11/12/17 00:23 00:46 01:27 WBC RBC Hgb Hct MCV MCH MCHC RDW Plt Count Add Manual Diff Total Counted Seg Neuts % (Manual) Band Neutrophils % Lymphocytes % (Manual) Reactive Lymphs % (Man) Monocytes % (Manual) Eosinophils % (Manual) Basophils % (Manual) Metamyelocytes % Myelocytes % Promyelocytes % Blast Cells % Nucleated RBC % Seg Neutrophils # Man Band Neutrophils # Lymphocytes # (Manual) Abs React Lymphs (Man) Monocytes # (Manual) Eosinophils # (Manual) Basophils # (Manual) Metamyelocytes # Myelocytes # Promyelocytes # Blast Cells # WBC Morphology Hypersegmented Neuts Hyposegmented Neuts Hypogranular Neuts Smudge Cells Toxic Granulation Toxic Vacuolation Dohle Bodies Pelger-Huet Anomaly Evangelina Rods Platelet Estimate Clumped Platelets Plt Clumps, EDTA Large Platelets Giant Platelets Platelet Satelliting Plt Morphology Comment RBC Morphology Dimorphic RBCs Polychromasia Hypochromasia Poikilocytosis Anisocytosis Microcytosis Macrocytosis Spherocytes Pappenheimer Bodies Sickle Cells Target Cells Tear Drop Cells Ovalocytes Helmet Cells Dukes-Pauline Bodies [place] Rings [place] Cells Bite Cells Crenated Cell Elliptocytes Acanthocytes (Spur) Rouleaux Hemoglobin C Crystals Schistocytes Malaria parasites [place] Bodies Hem Pathologist Commnt PT 16.7 H INR 1.28 H APTT 31.7 POC ABG pH 7.495 H POC ABG pCO2 32.0 L POC ABG pO2 64 L POC ABG HCO3 24.7 POC ABG Total CO2 26 POC ABG O2 Sat 94 POC ABG Base Excess 1 FiO2 100 Sodium Potassium Chloride Carbon Dioxide Anion Gap BUN Creatinine Estimated GFR BUN/Creatinine Ratio Glucose Lactic Acid 3.70 H* Calcium Total Bilirubin AST ALT Alkaline Phosphatase Total Creatine Kinase Troponin T C-Reactive Protein NT-Pro-B Natriuret Pep Total Protein Albumin Albumin/Globulin Ratio Triglycerides Cholesterol LDL Cholesterol Direct HDL Cholesterol Cholesterol/HDL Ratio Lipase Urine Color Urine Turbidity Urine pH Ur Specific [place] Urine Protein Urine Glucose (UA) Urine Ketones Urine Blood Urine Nitrite Urine Bilirubin Urine Urobilinogen Ur Leukocyte Esterase Urine WBC (Auto) Urine RBC (Auto) Urine Bacteria (Auto) Amorphous Crystals Hyaline Casts Urine Mucus 11/12/17 11/12/17 11/12/17 01:27 03:21 06:27 WBC RBC Hgb Hct MCV MCH MCHC RDW Plt Count Add Manual Diff Total Counted Seg Neuts % (Manual) Band Neutrophils % Lymphocytes % (Manual) Reactive Lymphs % (Man) Monocytes % (Manual) Eosinophils % (Manual) Basophils % (Manual) Metamyelocytes % Myelocytes % Promyelocytes % Blast Cells % Nucleated RBC % Seg Neutrophils # Man Band Neutrophils # Lymphocytes # (Manual) Abs React Lymphs (Man) Monocytes # (Manual) Eosinophils # (Manual) Basophils # (Manual) Metamyelocytes # Myelocytes # Promyelocytes # Blast Cells # WBC Morphology Hypersegmented Neuts Hyposegmented Neuts Hypogranular Neuts Smudge Cells Toxic Granulation Toxic Vacuolation Dohle Bodies Pelger-Huet Anomaly Evangelina Rods Platelet Estimate Clumped Platelets Plt Clumps, EDTA Large Platelets Giant Platelets Platelet Satelliting Plt Morphology Comment RBC Morphology Dimorphic RBCs Polychromasia Hypochromasia Poikilocytosis Anisocytosis Microcytosis Macrocytosis Spherocytes Pappenheimer Bodies Sickle Cells Target Cells Tear Drop Cells Ovalocytes Helmet Cells Dukes-Pauline Bodies [place] Rings [place]cret[place] Cells Bite Cells Crenated Cell Elliptocytes Acanthocytes (Spur) Rouleaux Hemoglobin C Crystals Schistocytes Malaria parasites [place] Bodies Hem Pathologist Commnt PT INR APTT POC ABG pH 7.426 POC ABG pCO2 36.1 POC ABG pO2 109 H POC ABG HCO3 23.7 POC ABG Total CO2 25 POC ABG O2 Sat 98 POC ABG Base Excess -1 FiO2 100 Sodium Potassium Chloride Carbon Dioxide Anion Gap BUN Creatinine Estimated GFR BUN/Creatinine Ratio Glucose Lactic Acid 3.80 H* Calcium Total Bilirubin AST ALT Alkaline Phosphatase Total Creatine Kinase Troponin T 0.096 H C-Reactive Protein NT-Pro-B Natriuret Pep Total Protein Albumin Albumin/Globulin Ratio Triglycerides Cholesterol LDL Cholesterol Direct HDL Cholesterol Cholesterol/HDL Ratio Lipase Urine Color Urine Turbidity Urine pH Ur Specific [place] Urine Protein Urine Glucose (UA) Urine Ketones Urine Blood Urine Nitrite Urine Bilirubin Urine Urobilinogen Ur Leukocyte Esterase Urine WBC (Auto) Urine RBC (Auto) Urine Bacteria (Auto) Amorphous Crystals Hyaline Casts Urine Mucus 11/12/17 11/12/17 11/12/17 09:24 Unknown Unknown WBC RBC Hgb 10.4 L Hct 33.4 L MCV MCH MCHC RDW Plt Count Add Manual Diff Total Counted Seg Neuts % (Manual) Band Neutrophils % Lymphocytes % (Manual) Reactive Lymphs % (Man) Monocytes % (Manual) Eosinophils % (Manual) Basophils % (Manual) Metamyelocytes % Myelocytes % Promyelocytes % Blast Cells % Nucleated RBC % Seg Neutrophils # Man Band Neutrophils # Lymphocytes # (Manual) Abs React Lymphs (Man) Monocytes # (Manual) Eosinophils # (Manual) Basophils # (Manual) Metamyelocytes # Myelocytes # Promyelocytes # Blast Cells # WBC Morphology Hypersegmented Neuts Hyposegmented Neuts Hypogranular Neuts Smudge Cells Toxic Granulation Toxic Vacuolation Dohle Bodies Pelger-Huet Anomaly Evangelina Rods Platelet Estimate Clumped Platelets Plt Clumps, EDTA Large Platelets Giant Platelets Platelet Satelliting Plt Morphology Comment RBC Morphology Dimorphic RBCs Polychromasia Hypochromasia Poikilocytosis Anisocytosis Microcytosis Macrocytosis Spherocytes Pappenheimer Bodies Sickle Cells Target Cells Tear Drop Cells Ovalocytes Helmet Cells Dukes-Pauline Bodies [place] Rings [place] Cells Bite Cells Crenated Cell Elliptocytes Acanthocytes (Spur) Rouleaux Hemoglobin C Crystals Schistocytes Malaria parasites [place] Bodies Hem Pathologist Commnt PT INR APTT POC ABG pH POC ABG pCO2 POC ABG pO2 POC ABG HCO3 POC ABG Total CO2 POC ABG O2 Sat POC ABG Base Excess FiO2 Sodium Potassium Chloride Carbon Dioxide Anion Gap BUN Creatinine Estimated GFR BUN/Creatinine Ratio Glucose Lactic Acid 3.60 H* Calcium Total Bilirubin AST ALT Alkaline Phosphatase Total Creatine Kinase Troponin T 0.098 H C-Reactive Protein NT-Pro-B Natriuret Pep Total Protein Albumin Albumin/Globulin Ratio Triglycerides Cholesterol LDL Cholesterol Direct HDL Cholesterol Cholesterol/HDL Ratio Lipase Urine Color Urine Turbidity Urine pH Ur Specific [place] Urine Protein Urine Glucose (UA) Urine Ketones Urine Blood Urine Nitrite Urine Bilirubin Urine Urobilinogen Ur Leukocyte Esterase Urine WBC (Auto) Urine RBC (Auto) Urine Bacteria (Auto) Amorphous Crystals Hyaline Casts Urine Mucus Assessment and Plan 1.coffee-ground emesis 2.acute respiratory failure 3.septic shock 4.pneumonia 5.recent CVA (s/p CEA) -HGB 10.4-improved according to chart review -continue to monitor H/H and transfuse as needed -hold blood thinning medications -small amount of coffee-ground drainage in OGT -etiology unclear -s/p EGD/PEG placement last week on 11/06 with no source of bleeding (PEG patent and intact with site w/o s/s of infection/bleeding) -place OGT to LIS -no plans for EGD at this time unless overt bleeding develops -continue PPI and supportive care -will follow <MARITZA VAUGHN - Last Filed: 11/12/17 13:40> Medications and Allergies Active Meds: Active Medications Acetaminophen (Tylenol) 650 mg [place] Q4H PRN PRN Reason: Pain MILD(1-3)/Fever >100.5/CABELLO Piperacillin Sod/Tazobactam Sod (Zosyn/Ns 4.5gm/100ml) 4.5 gm in 100 mls @ 200 mls/hr IV Q8HR [facility]; Protocol Last Admin: 11/11/17 23:55 Dose: 200 mls/hr Levofloxacin/Dextrose (Levaquin 750mg/150ml) 750 mg in 150 mls @ 100 mls/hr IV Q48H [facility]; Protocol Last Admin: 11/12/17 01:56 Dose: 100 mls/hr Fentanyl Citrate (Fentanyl Drip Premix) 2,000 mcg in 100 mls @ 3.969 mls/hr IV TITR [facility]; Protocol Last Titration: 11/12/17 04:07 Dose: 5 mcg/kg/hr, 19.845 mls/hr Propofol (Diprivan 10 Mg/Ml) 1,000 mg in 100 mls @ 2.381 mls/hr IV TITR [facility]; Protocol Last Titration: 11/12/17 05:32 Dose: 10 mcg/kg/min, 4.763 mls/hr Norepinephrine (Levophed Drip 4 Mg/Ns 250 Ml) 4 mg in 250 mls @ 7.5 mls/hr IV TITR [facility]; Protocol Last Admin: 11/12/17 11:15 Dose: 15 mcg/min, 56.25 mls/hr Sodium Chloride (Nacl 0.9% 1000 Ml) 1,000 mls @ 150 mls/hr IV DIRECT [facility] Last Admin: 11/12/17 08:00 Dose: 150 mls/hr Vancomycin HCl 1,250 mg/ (Sodium Chloride) 275 mls @ 166.667 mls/hr IV Q24H [facility] Ondansetron HCl (Zofran) 4 mg IV Q8H PRN PRN Reason: Nausea And Vomiting Pantoprazole Sodium (Protonix) 40 mg IV BID [facility] Last Admin: 11/12/17 11:13 Dose: 40 mg Sodium Chloride (Sodium Chloride Flush Syringe 10 Ml) 10 ml IV BID [facility] Last Admin: 11/12/17 11:14 Dose: 10 ml Sodium Chloride (Sodium Chloride Flush Syringe 10 Ml) 10 ml IV PRN PRN PRN Reason: LINE FLUSH Exam - Constitutional Vital Signs: Temp Pulse Resp BP Pulse Ox 98.7 F 151 H 40 H 104/68 100 11/12/17 12:00 11/12/17 06:30 11/12/17 06:30 11/12/17 06:30 11/12/17 06:30 - Labs CBC & Chem 7: 11/12/17 09:24 11/11/17 23:20 Lab Results: Laboratory Results - last 24 hr 11/11/17 11/11/17 11/11/17 23:09 23:18 23:20 WBC 8.7 RBC 3.83 Hgb 10.4 L Hct 32.6 L D MCV 85 MCH 27 L MCHC 32 RDW 17.4 H Plt Count 105 L Add Manual Diff Complete Total Counted 100 Seg Neuts % (Manual) 58.0 Band Neutrophils % 27.0 Lymphocytes % (Manual) 8.0 L Reactive Lymphs % (Man) 0 Monocytes % (Manual) 7.0 Eosinophils % (Manual) 0 Basophils % (Manual) 0 Metamyelocytes % 0 Myelocytes % 0 Promyelocytes % 0 Blast Cells % 0 Nucleated RBC % 1.0 H Seg Neutrophils # Man 5.0 Band Neutrophils # 2.3 Lymphocytes # (Manual) 0.7 L Abs React Lymphs (Man) 0.0 Monocytes # (Manual) 0.6 Eosinophils # (Manual) 0.0 Basophils # (Manual) 0.0 Metamyelocytes # 0.0 Myelocytes # 0.0 Promyelocytes # 0.0 Blast Cells # 0.0 WBC Morphology Not Reportable Hypersegmented Neuts Not Reportable Hyposegmented Neuts Not Reportable Hypogranular Neuts Not Reportable Smudge Cells Not Reportable Toxic Granulation Not Reportable Toxic Vacuolation Not Reportable Dohle Bodies Not Reportable Pelger-Huet Anomaly Not Reportable Evangelina Rods Not Reportable Platelet Estimate Consistent w auto Clumped Platelets Not Reportable Plt Clumps, EDTA Not Reportable Large Platelets Not Reportable Giant Platelets Not Reportable Platelet Satelliting Not Reportable Plt Morphology Comment Not Reportable RBC Morphology Not Reportable Dimorphic RBCs Not Reportable Polychromasia Not Reportable Hypochromasia Not Reportable Poikilocytosis Not Reportable Anisocytosis 1+ Microcytosis Not Reportable Macrocytosis Not Reportable Spherocytes Not Reportable Pappenheimer Bodies Not Reportable Sickle Cells Not Reportable Target Cells Not Reportable Tear Drop Cells Not Reportable Ovalocytes 1+ Helmet Cells Not Reportable Dukes-[place]ine Bodies Not Reportable [place] Rings Not Reportable [place] Cells Not Reportable Bite Cells Not Reportable Crenated Cell Not Reportable Elliptocytes Not Reportable Acanthocytes (Spur) Not Reportable Rouleaux Not Reportable Hemoglobin C Crystals Not Reportable Schistocytes Not Reportable Malaria parasites Not Reportable [place] Bodies Not Reportable Hem Pathologist Commnt No PT INR APTT POC ABG pH 7.550 H POC ABG pCO2 31.6 L POC ABG pO2 90 POC ABG HCO3 27.7 POC ABG Total CO2 29 POC ABG O2 Sat 98 POC ABG Base Excess 5 FiO2 100 Sodium Potassium Chloride Carbon Dioxide Anion Gap BUN Creatinine Estimated GFR BUN/Creatinine Ratio Glucose Lactic Acid Calcium Total Bilirubin AST ALT Alkaline Phosphatase Total Creatine Kinase CK-MB (CK-2) CK-MB (CK-2) Rel Index Troponin T C-Reactive Protein NT-Pro-B Natriuret Pep Total Protein Albumin Albumin/Globulin Ratio Triglycerides Cholesterol LDL Cholesterol Direct HDL Cholesterol Cholesterol/HDL Ratio Lipase Urine Color Nicole Urine Turbidity Cloudy Urine pH 5.0 Ur Specific [place] 1.025 Urine Protein 100 mg/dl Urine Glucose (UA) 50 Urine Ketones Neg Urine Blood Neg Urine Nitrite Neg Urine Bilirubin Neg Urine Urobilinogen 4.0 Ur Leukocyte Esterase Neg Urine WBC (Auto) 5.0 Urine RBC (Auto) 4.0 Urine Bacteria (Auto) 3+ Amorphous Crystals 3+ Hyaline Casts 76 Urine Mucus 2+ 11/11/17 11/11/17 11/12/17 23:20 23:20 00:23 WBC RBC Hgb Hct MCV MCH MCHC RDW Plt Count Add Manual Diff Total Counted Seg Neuts % (Manual) Band Neutrophils % Lymphocytes % (Manual) Reactive Lymphs % (Man) Monocytes % (Manual) Eosinophils % (Manual) Basophils % (Manual) Metamyelocytes % Myelocytes % Promyelocytes % Blast Cells % Nucleated RBC % Seg Neutrophils # Man Band Neutrophils # Lymphocytes # (Manual) Abs React Lymphs (Man) Monocytes # (Manual) Eosinophils # (Manual) Basophils # (Manual) Metamyelocytes # Myelocytes # Promyelocytes # Blast Cells # WBC Morphology Hypersegmented Neuts Hyposegmented Neuts Hypogranular Neuts Smudge Cells Toxic Granulation Toxic Vacuolation Dohle Bodies Pelger-Huet Anomaly Evangelina Rods Platelet Estimate Clumped Platelets Plt Clumps, EDTA Large Platelets Giant Platelets Platelet Satelliting Plt Morphology Comment RBC Morphology Dimorphic RBCs Polychromasia Hypochromasia Poikilocytosis Anisocytosis Microcytosis Macrocytosis Spherocytes Pappenheimer Bodies Sickle Cells Target Cells Tear Drop Cells Ovalocytes Helmet Cells Dukes-[place] Bodies [place] Rings [place] Cells Bite Cells Crenated Cell Elliptocytes Acanthocytes (Spur) Rouleaux Hemoglobin C Crystals Schistocytes Malaria parasites [place] Bodies Hem Pathologist Commnt PT INR APTT POC ABG pH POC ABG pCO2 POC ABG pO2 POC ABG HCO3 POC ABG Total CO2 POC ABG O2 Sat POC ABG Base Excess FiO2 Sodium 146 H Potassium 4.3 Chloride 105.0 Carbon Dioxide 24 D Anion Gap 21 BUN 26 H Creatinine 1.7 H D Estimated GFR 49 BUN/Creatinine Ratio 15 Glucose 133 H Lactic Acid 3.20 H* Calcium 8.4 Total Bilirubin 1.10 AST 27 ALT 40 Alkaline Phosphatase 90 Total Creatine Kinase 57 CK-MB (CK-2) CK-MB (CK-2) Rel Index Troponin T 0.117 H* C-Reactive Protein 25.70 H NT-Pro-B Natriuret Pep 792.4 Total Protein 6.5 Albumin 2.5 L Albumin/Globulin Ratio 0.6 Triglycerides 86 Cholesterol 82 LDL Cholesterol Direct 42 L HDL Cholesterol 24 L Cholesterol/HDL Ratio 3.41 Lipase 30 Urine Color Urine Turbidity Urine pH Ur Specific [place] Urine Protein Urine Glucose (UA) Urine Ketones Urine Blood Urine Nitrite Urine Bilirubin Urine Urobilinogen Ur Leukocyte Esterase Urine WBC (Auto) Urine RBC (Auto) Urine Bacteria (Auto) Amorphous Crystals Hyaline Casts Urine Mucus 11/12/17 11/12/17 11/12/17 00:23 00:46 01:27 WBC RBC Hgb Hct MCV MCH MCHC RDW Plt Count Add Manual Diff Total Counted Seg Neuts % (Manual) Band Neutrophils % Lymphocytes % (Manual) Reactive Lymphs % (Man) Monocytes % (Manual) Eosinophils % (Manual) Basophils % (Manual) Metamyelocytes % Myelocytes % Promyelocytes % Blast Cells % Nucleated RBC % Seg Neutrophils # Man Band Neutrophils # Lymphocytes # (Manual) Abs React Lymphs (Man) Monocytes # (Manual) Eosinophils # (Manual) Basophils # (Manual) Metamyelocytes # Myelocytes # Promyelocytes # Blast Cells # WBC Morphology Hypersegmented Neuts Hyposegmented Neuts Hypogranular Neuts Smudge Cells Toxic Granulation Toxic Vacuolation Dohle Bodies Pelger-Huet Anomaly Evangelina Rods Platelet Estimate Clumped Platelets Plt Clumps, EDTA Large Platelets Giant Platelets Platelet Satelliting Plt Morphology Comment RBC Morphology Dimorphic RBCs Polychromasia Hypochromasia Poikilocytosis Anisocytosis Microcytosis Macrocytosis Spherocytes Pappenheimer Bodies Sickle Cells Target Cells Tear Drop Cells Ovalocytes Helmet Cells Dukes-Pauline Bodies [place] Rings [place] Cells Bite Cells Crenated Cell Elliptocytes Acanthocytes (Spur) Rouleaux Hemoglobin C Crystals Schistocytes Malaria parasites [place] Bodies Hem Pathologist Commnt PT 16.7 H INR 1.28 H APTT 31.7 POC ABG pH 7.495 H POC ABG pCO2 32.0 L POC ABG pO2 64 L POC ABG HCO3 24.7 POC ABG Total CO2 26 POC ABG O2 Sat 94 POC ABG Base Excess 1 FiO2 100 Sodium Potassium Chloride Carbon Dioxide Anion Gap BUN Creatinine Estimated GFR BUN/Creatinine Ratio Glucose Lactic Acid 3.70 H* Calcium Total Bilirubin AST ALT Alkaline Phosphatase Total Creatine Kinase CK-MB (CK-2) CK-MB (CK-2) Rel Index Troponin T C-Reactive Protein NT-Pro-B Natriuret Pep Total Protein Albumin Albumin/Globulin Ratio Triglycerides Cholesterol LDL Cholesterol Direct HDL Cholesterol Cholesterol/HDL Ratio Lipase Urine Color Urine Turbidity Urine pH Ur Specific [place] Urine Protein Urine Glucose (UA) Urine Ketones Urine Blood Urine Nitrite Urine Bilirubin Urine Urobilinogen Ur Leukocyte Esterase Urine WBC (Auto) Urine RBC (Auto) Urine Bacteria (Auto) Amorphous Crystals Hyaline Casts Urine Mucus 11/12/17 11/12/17 11/12/17 01:27 03:21 06:27 WBC RBC Hgb Hct MCV MCH MCHC RDW Plt Count Add Manual Diff Total Counted Seg Neuts % (Manual) Band Neutrophils % Lymphocytes % (Manual) Reactive Lymphs % (Man) Monocytes % (Manual) Eosinophils % (Manual) Basophils % (Manual) Metamyelocytes % Myelocytes % Promyelocytes % Blast Cells % Nucleated RBC % Seg Neutrophils # Man Band Neutrophils # Lymphocytes # (Manual) Abs React Lymphs (Man) Monocytes # (Manual) Eosinophils # (Manual) Basophils # (Manual) Metamyelocytes # Myelocytes # Promyelocytes # Blast Cells # WBC Morphology Hypersegmented Neuts Hyposegmented Neuts Hypogranular Neuts Smudge Cells Toxic Granulation Toxic Vacuolation Dohle Bodies Pelger-Huet Anomaly Evangelina Rods Platelet Estimate Clumped Platelets Plt Clumps, EDTA Large Platelets Giant Platelets Platelet Satelliting Plt Morphology Comment RBC Morphology Dimorphic RBCs Polychromasia Hypochromasia Poikilocytosis Anisocytosis Microcytosis Macrocytosis Spherocytes Pappenheimer Bodies Sickle Cells Target Cells Tear Drop Cells Ovalocytes Helmet Cells Dukes-[place] Bodies [place] Rings [place] Cells Bite Cells Crenated Cell Elliptocytes Acanthocytes (Spur) Rouleaux Hemoglobin C Crystals Schistocytes Malaria parasites [place] Bodies Hem Pathologist Commnt PT INR APTT POC ABG pH 7.426 POC ABG pCO2 36.1 POC ABG pO2 109 H POC ABG HCO3 23.7 POC ABG Total CO2 25 POC ABG O2 Sat 98 POC ABG Base Excess -1 FiO2 100 Sodium Potassium Chloride Carbon Dioxide Anion Gap BUN Creatinine Estimated GFR BUN/Creatinine Ratio Glucose Lactic Acid 3.80 H* Calcium Total Bilirubin AST ALT Alkaline Phosphatase Total Creatine Kinase CK-MB (CK-2) CK-MB (CK-2) Rel Index Troponin T 0.096 H C-Reactive Protein NT-Pro-B Natriuret Pep Total Protein Albumin Albumin/Globulin Ratio Triglycerides Cholesterol LDL Cholesterol Direct HDL Cholesterol Cholesterol/HDL Ratio Lipase Urine Color Urine Turbidity Urine pH Ur Specific [place] Urine Protein Urine Glucose (UA) Urine Ketones Urine Blood Urine Nitrite Urine Bilirubin Urine Urobilinogen Ur Leukocyte Esterase Urine WBC (Auto) Urine RBC (Auto) Urine Bacteria (Auto) Amorphous Crystals Hyaline Casts Urine Mucus 11/12/17 11/12/17 11/12/17 09:24 09:24 09:24 WBC RBC Hgb 10.4 L Hct 33.4 L MCV MCH MCHC RDW Plt Count Add Manual Diff Total Counted Seg Neuts % (Manual) Band Neutrophils % Lymphocytes % (Manual) Reactive Lymphs % (Man) Monocytes % (Manual) Eosinophils % (Manual) Basophils % (Manual) Metamyelocytes % Myelocytes % Promyelocytes % Blast Cells % Nucleated RBC % Seg Neutrophils # Man Band Neutrophils # Lymphocytes # (Manual) Abs React Lymphs (Man) Monocytes # (Manual) Eosinophils # (Manual) Basophils # (Manual) Metamyelocytes # Myelocytes # Promyelocytes # Blast Cells # WBC Morphology Hypersegmented Neuts Hyposegmented Neuts Hypogranular Neuts Smudge Cells Toxic Granulation Toxic Vacuolation Dohle Bodies Pelger-Huet Anomaly Evangelina Rods Platelet Estimate Clumped Platelets Plt Clumps, EDTA Large Platelets Giant Platelets Platelet Satelliting Plt Morphology Comment RBC Morphology Dimorphic RBCs Polychromasia Hypochromasia Poikilocytosis Anisocytosis Microcytosis Macrocytosis Spherocytes Pappenheimer Bodies Sickle Cells Target Cells Tear Drop Cells Ovalocytes Helmet Cells Dukes-Pauline Bodies [place] Rings [place] Cells Bite Cells Crenated Cell Elliptocytes Acanthocytes (Spur) Rouleaux Hemoglobin C Crystals Schistocytes Malaria parasites [place] Bodies Hem Pathologist Commnt PT INR APTT POC ABG pH POC ABG pCO2 POC ABG pO2 POC ABG HCO3 POC ABG Total CO2 POC ABG O2 Sat POC ABG Base Excess FiO2 Sodium Potassium Chloride Carbon Dioxide Anion Gap BUN Creatinine Estimated GFR BUN/Creatinine Ratio Glucose Lactic Acid 2.90 H* Calcium Total Bilirubin AST ALT Alkaline Phosphatase Total Creatine Kinase 63 CK-MB (CK-2) 1.6 CK-MB (CK-2) Rel Index 2.5 Troponin T C-Reactive Protein NT-Pro-B Natriuret Pep Total Protein Albumin Albumin/Globulin Ratio Triglycerides Cholesterol LDL Cholesterol Direct HDL Cholesterol Cholesterol/HDL Ratio Lipase Urine Color Urine Turbidity Urine pH Ur Specific [place] Urine Protein Urine Glucose (UA) Urine Ketones Urine Blood Urine Nitrite Urine Bilirubin Urine Urobilinogen Ur Leukocyte Esterase Urine WBC (Auto) Urine RBC (Auto) Urine Bacteria (Auto) Amorphous Crystals Hyaline Casts Urine Mucus 11/12/17 11/12/17 11/12/17 09:24 12:56 Unknown WBC RBC Hgb Hct MCV MCH MCHC RDW Plt Count Add Manual Diff Total Counted Seg Neuts % (Manual) Band Neutrophils % Lymphocytes % (Manual) Reactive Lymphs % (Man) Monocytes % (Manual) Eosinophils % (Manual) Basophils % (Manual) Metamyelocytes % Myelocytes % Promyelocytes % Blast Cells % Nucleated RBC % Seg Neutrophils # Man Band Neutrophils # Lymphocytes # (Manual) Abs React Lymphs (Man) Monocytes # (Manual) Eosinophils # (Manual) Basophils # (Manual) Metamyelocytes # Myelocytes # Promyelocytes # Blast Cells # WBC Morphology Hypersegmented Neuts Hyposegmented Neuts Hypogranular Neuts Smudge Cells Toxic Granulation Toxic Vacuolation Dohle Bodies Pelger-Huet Anomaly Evangelina Rods Platelet Estimate Clumped Platelets Plt Clumps, EDTA Large Platelets Giant Platelets Platelet Satelliting Plt Morphology Comment RBC Morphology Dimorphic RBCs Polychromasia Hypochromasia Poikilocytosis Anisocytosis Microcytosis Macrocytosis Spherocytes Pappenheimer Bodies Sickle Cells Target Cells Tear Drop Cells Ovalocytes Helmet Cells Dukes-Pauline Bodies [place] Rings [place] Cells Bite Cells Crenated Cell Elliptocytes Acanthocytes (Spur) Rouleaux Hemoglobin C Crystals Schistocytes Malaria parasites [place] Bodies Hem Pathologist Commnt PT INR APTT POC ABG pH POC ABG pCO2 POC ABG pO2 POC ABG HCO3 POC ABG Total CO2 POC ABG O2 Sat POC ABG Base Excess FiO2 Sodium Potassium Chloride Carbon Dioxide Anion Gap BUN Creatinine Estimated GFR BUN/Creatinine Ratio Glucose Lactic Acid 3.60 H* Calcium Total Bilirubin AST ALT Alkaline Phosphatase Total Creatine Kinase CK-MB (CK-2) 1.2 CK-MB (CK-2) Rel Index Troponin T 0.091 H C-Reactive Protein NT-Pro-B Natriuret Pep Total Protein Albumin Albumin/Globulin Ratio Triglycerides Cholesterol LDL Cholesterol Direct HDL Cholesterol Cholesterol/HDL Ratio Lipase Urine Color Urine Turbidity Urine pH Ur Specific [place] Urine Protein Urine Glucose (UA) Urine Ketones Urine Blood Urine Nitrite Urine Bilirubin Urine Urobilinogen Ur Leukocyte Esterase Urine WBC (Auto) Urine RBC (Auto) Urine Bacteria (Auto) Amorphous Crystals Hyaline Casts Urine Mucus 11/12/17 Unknown WBC RBC Hgb Hct MCV MCH MCHC RDW Plt Count Add Manual Diff Total Counted Seg Neuts % (Manual) Band Neutrophils % Lymphocytes % (Manual) Reactive Lymphs % (Man) Monocytes % (Manual) Eosinophils % (Manual) Basophils % (Manual) Metamyelocytes % Myelocytes % Promyelocytes % Blast Cells % Nucleated RBC % Seg Neutrophils # Man Band Neutrophils # Lymphocytes # (Manual) Abs React Lymphs (Man) Monocytes # (Manual) Eosinophils # (Manual) Basophils # (Manual) Metamyelocytes # Myelocytes # Promyelocytes # Blast Cells # WBC Morphology Hypersegmented Neuts Hyposegmented Neuts Hypogranular Neuts Smudge Cells Toxic Granulation Toxic Vacuolation Dohle Bodies Pelger-Huet Anomaly Evangelina Rods Platelet Estimate Clumped Platelets Plt Clumps, EDTA Large Platelets Giant Platelets Platelet Satelliting Plt Morphology Comment RBC Morphology Dimorphic RBCs Polychromasia Hypochromasia Poikilocytosis Anisocytosis Microcytosis Macrocytosis Spherocytes Pappenheimer Bodies Sickle Cells Target Cells Tear Drop Cells Ovalocytes Helmet Cells Dukes-Pauline Bodies [place] Rings [place] Cells Bite Cells Crenated Cell Elliptocytes Acanthocytes (Spur) Rouleaux Hemoglobin C Crystals Schistocytes Malaria parasites [place] Bodies Hem Pathologist Commnt PT INR APTT POC ABG pH POC ABG pCO2 POC ABG pO2 POC ABG HCO3 POC ABG Total CO2 POC ABG O2 Sat POC ABG Base Excess FiO2 Sodium Potassium Chloride Carbon Dioxide Anion Gap BUN Creatinine Estimated GFR BUN/Creatinine Ratio Glucose Lactic Acid Calcium Total Bilirubin AST ALT Alkaline Phosphatase Total Creatine Kinase CK-MB (CK-2) CK-MB (CK-2) Rel Index Troponin T 0.098 H C-Reactive Protein NT-Pro-B Natriuret Pep Total Protein Albumin Albumin/Globulin Ratio Triglycerides Cholesterol LDL Cholesterol Direct HDL Cholesterol Cholesterol/HDL Ratio Lipase Urine Color Urine Turbidity Urine pH Ur Specific [place] Urine Protein Urine Glucose (UA) Urine Ketones Urine Blood Urine Nitrite Urine Bilirubin Urine Urobilinogen Ur Leukocyte Esterase Urine WBC (Auto) Urine RBC (Auto) Urine Bacteria (Auto) Amorphous Crystals Hyaline Casts Urine Mucus Assessment and Plan Patient seen and examined. Agree with note above. NG tube with dark brown output. H/H stable. Conservative management from gi stand point unless he develops overt signs of bleeding. cont PPI.
[2017-11-12] MEDS ORDERED: VANCOMYCIN/NS 1 GM/250 ML 1 GM/250 ML BAG IV SCH (10:00)
[2017-11-12] MEDS ORDERED: LEVAQUIN 750MG/150ML 750 MG/150 ML BAG IV SCH (10:00)
[2017-11-12 10:15] LABS: Creatine Kinase MB 1.6 ng/mL (0.0-4.0)
[2017-11-12] MEDS: PROTONIX IV SCH ×2 (11:13→22:09)
[2017-11-12] MEDS: SODIUM CHLORIDE FLUSH SYRINGE 10 ML IV SCH ×2 (11:14→22:25)
--- NOTE | 2017-11-12 11:31 | Consultation ---
History of Present Illness Consult date: 11/12/17 Consult reason: elevated troponin History of present illness: This is a 67 year old male who was discharged from this hospital 24-48hrs. He was treated for symptoms of a TIA and has underwent vascular surgery for severe carotid stenosis. 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 His cardiac workup has been negative. An echocardiogram showed normal left ventricular ejection fraction. A persantine stress test revealed a small basilar inferior defect of the significance. [facility] with increasing shortness of breath. He is currently intubated on the ventilator. Chest xray is suggestive of multifocal pneumonia. 12 lead ECG is a sinus tachycardia. No acute ischemic changes. Past History Past Medical History: arthritis, CAD, hypertension, stroke Past Surgical History: hernia repair, Other (CEA, PEG) Social history: other ([facility] resident) Family history: hypertension Medications and Allergies Allergies Allergy/AdvReac Type Severity Reaction Status Date / Time adhesive tape AdvReac SKIN TEAR Verified 10/09/17 13:53 Home Medications Medication Instructions Recorded Confirmed Last Taken Type Aspirin [Adult Low Dose Aspirin EC] 81 mg PO DAILY 05/18/15 10/04/17 09/15/16 History Cetirizine HCl [Allergy Relief] 10 mg PO DAILY 09/15/16 10/04/17 09/15/16 History Clopidogrel [Plavix] 75 mg PO QDAY 09/15/16 10/04/17 09/15/16 History Meloxicam [Mobic] 15 mg PO DAILY 09/15/16 10/04/17 09/15/16 History Pantoprazole [Protonix TAB] 40 mg PO QDAY 09/15/16 10/04/17 09/15/16 History amLODIPine [Norvasc] 10 mg PO DAILY 09/15/16 10/04/17 09/15/16 History Metoprolol [Lopressor TAB] 25 mg PO BID #60 tablet 01/23/17 10/04/17 Unknown Rx Active Meds: Active Medications Acetaminophen (Tylenol) 650 mg MO Q4H PRN PRN Reason: Pain MILD(1-3)/Fever >100.5/CABELLO Piperacillin Sod/Tazobactam Sod (Zosyn/Ns 4.5gm/100ml) 4.5 gm in 100 mls @ 200 mls/hr IV Q8HR [facility]; Protocol Last Admin: 11/11/17 23:55 Dose: 200 mls/hr Levofloxacin/Dextrose (Levaquin 750mg/150ml) 750 mg in 150 mls @ 100 mls/hr IV Q48H [facility]; Protocol Last Admin: 11/12/17 01:56 Dose: 100 mls/hr Fentanyl Citrate (Fentanyl Drip Premix) 2,000 mcg in 100 mls @ 3.969 mls/hr IV TITR [facility]; Protocol Last Titration: 11/12/17 04:07 Dose: 5 mcg/kg/hr, 19.845 mls/hr Propofol (Diprivan 10 Mg/Ml) 1,000 mg in 100 mls @ 2.381 mls/hr IV TITR [facility]; Protocol Last Titration: 11/12/17 05:32 Dose: 10 mcg/kg/min, 4.763 mls/hr Norepinephrine (Levophed Drip 4 Mg/Ns 250 Ml) 4 mg in 250 mls @ 7.5 mls/hr IV TITR [facility]; Protocol Last Admin: 11/12/17 11:15 Dose: 15 mcg/min, 56.25 mls/hr Sodium Chloride (Nacl 0.9% 1000 Ml) 1,000 mls @ 150 mls/hr IV DIRECT [facility] Last Admin: 11/12/17 08:00 Dose: 150 mls/hr Vancomycin HCl 1,250 mg/ (Sodium Chloride) 275 mls @ 166.667 mls/hr IV Q24H [facility] Ondansetron HCl (Zofran) 4 mg IV Q8H PRN PRN Reason: Nausea And Vomiting Pantoprazole Sodium (Protonix) 40 mg IV BID [facility] Last Admin: 11/12/17 11:13 Dose: 40 mg Sodium Chloride (Sodium Chloride Flush Syringe 10 Ml) 10 ml IV BID [facility] Last Admin: 11/12/17 11:14 Dose: 10 ml Sodium Chloride (Sodium Chloride Flush Syringe 10 Ml) 10 ml IV PRN PRN PRN Reason: LINE FLUSH Physical Examination Vital Signs Pulse Resp BP Pulse Ox 135 H 32 H 126/86 94 11/11/17 22:26 11/11/17 22:26 11/11/17 22:26 11/11/17 22:26 General appearance: other (intubated on the vent) Cardiac: Positive: Tachycardia Results 11/12/17 09:24 11/11/17 23:20 Cardiac Enzymes 11/11/17 11/12/17 Range/Units 23:20 09:24 AST 27 (5-40) units/L CK-MB (CK-2) 1.6 (0.0-4.0) ng/mL Coagulation 11/12/17 Range/Units 00:23 PT 16.7 H (12.2-14.9) Sec. INR 1.28 H (0.87-1.13) APTT 31.7 (24.2-36.6) Sec. Lipids 11/11/17 Range/Units 23:20 Triglycerides 86 (2-149) mg/dL Cholesterol 82 (50-199) mg/dL HDL Cholesterol 24 L (40-59) mg/dL Cholesterol/HDL Ratio 3.41 % CBC 11/11/17 11/12/17 Range/Units 23:20 09:24 WBC 8.7 (4.5-11.0) K/mm3 RBC 3.83 (3.65-5.03) M/mm3 Hgb 10.4 L 10.4 L (11.8-15.2) gm/dl Hct 32.6 L D 33.4 L (35.5-45.6) % Plt Count 105 L (140-440) K/mm3 Comprehensive Metabolic Panel 11/11/17 Range/Units 23:20 Sodium 146 H (137-145) mmol/L Potassium 4.3 (3.6-5.0) mmol/L Chloride 105.0 (98-107) mmol/L Carbon Dioxide 24 D (22-30) mmol/L BUN 26 H (9-20) mg/dL Creatinine 1.7 H D (0.8-1.5) mg/dL Glucose 133 H (75-100) mg/dL Calcium 8.4 (8.4-10.2) mg/dL AST 27 (5-40) units/L ALT 40 (7-56) units/L Alkaline Phosphatase 90 (35-129) units/L Total Protein 6.5 (6.3-8.2) g/dL Albumin 2.5 L (3.9-5) g/dL Assessment and Plan Acute Respiratory failure Pneumonia Carotid stenosis s/p recent carotid endarterectomy Recent CVA involving the MCA territory post CEA surgery Hx of Non-obstructive CAD Hypertension Normal LVEF on echocardiogram done 09/2017. Recent Persantine stress test revealed a small basilar inferior defect of insignificance.
--- NOTE | 2017-11-12 12:51 | Event Note ---
Date: 11/12/17 Discussed care plan at length with daughter Jannette. I explained to her that with the CVA history, his encephalopathy and recent acute respiratory decompensation, his obesity and likely LUCILLE in the setting of the new neurologic incidents he is best served by a tracheostomy and she feels taht he has stated to her "he wants to live" and will want the procedure done. - ENT consult placed
--- NOTE | 2017-11-12 13:37 | Consultation ---
PULMONARY CRITICAL CARE CONSULTATION CONSULTING PHYSICIAN: Roseline Zavaleta MD REASON FOR CONSULTATION: Severe sepsis, acute hypoxemic respiratory failure, on mechanical ventilatory support. CHIEF COMPLAINT AND HISTORY OF PRESENT ILLNESS: The patient is a 67-year-old -[place] male with past medical history significant along other things per diagnosis of prior cerebrovascular accident, recent right carotid endarterectomy and residual left-sided paralysis, who was discharged from the hospital a few days ago to a retirement. According to the Emergency Room records, he was brought into the ER secondary to increased work of breathing, cough, severe respiratory distress with tachypnea that had been going on for about a day. He was evaluated in the Emergency Room. He looks septic. Sepsis protocol was instituted. After volume resuscitation he required the use of vasopressors. He ultimately required intubation, mechanical ventilatory support and is transferred into the Critical Care Unit on Levophed drip. I do not have any history of vomiting or overt aspiration, although I cannot rule that out. The patient is unable to give me history. With regard to the patient's tobacco use/abuse history that is unknown except to say that he is not a current smoker. The records suggest that he does have a remote tobacco smoking history. When I stopped by to see him, he was resting in bed. He was on mechanical ventilator set rate of 20. He was breathing in the 30s. Not following my commands, not on any sedation. I do not have any report of actual loss of circulation or cardiac arrest. Unfortunately, this is as much of the history of presentation as I have. PAST MEDICAL HISTORY: History of hypertension, history of cerebrovascular accident with residual left hemiparesis, history of arthritis, history of peripheral vascular disease. He is obese. He has a history of congestive heart failure. PAST SURGICAL HISTORY: He has had a right carotid endarterectomy. He has had percutaneous endoscopic gastrostomy tube placement. MEDICATIONS: He was on at the time I stopped by to see him were reviewed. Pertinent medications included the following: Tylenol 650 mg p.o. q.4 hours p.r.n. mild pain or fevers, Levaquin 750 mg IV q.48 hours, Levophed drip was given at 15 mcg per minute, Zofran 4 mg IV q.8 hours p.r.n. nausea and vomiting, Protonix 40 mg IV b.i.d., Zosyn 4.5 grams IV q.8 hours, and Vancomycin he received 1.25 gram dose and pharmacy will adjust. ALLERGIES: ADHESIVE TAPE, nature of this allergy is unknown. DIET: Obese gentleman, no acute weight loss or gain history is unknown. FAMILY AND SOCIAL HISTORY: Resident of health care associated facilities including the hospital under retirement. No current alcohol, tobacco or illicit drug use or abuse. Remote history is unknown. Family history is otherwise unknown. REVIEW OF SYSTEMS: Unobtainable secondary to the patient's medical and mental condition. Since he has been here no gross hematochezia or melena. No gross hematuria, no hematemesis, no bloody tracheal secretions. No weakness or seizures have been reported. PHYSICAL EXAMINATION: VITAL SIGNS: At presentation in the Emergency Room; he had a fever of 102.5 degrees Fahrenheit rectally, pulse of 135, respiratory rate of 32 up to 55, blood pressure 126/86 with O2 sats 94%. In spite oxygen concentration at that time was not recorded. Currently, he is on the assist control mode of ventilation, tidal volume of 500, sed rate of 20, PEEP of 6, and FiO2 at 100%. GENERAL: He is elderly looking male, normocephalic, atraumatic, on the mechanical ventilator, breathing over this sed rate in mild to moderate distress. HEAD, EYES, EARS, NOSE AND THROAT: He is anicteric. No conjunctival erythema, endotracheal tube is in place, tapped at the lips around 23-24%. NECK: No gross jugular venous distention. Right carotid endarterectomy scar is visible in the neck. Oropharynx is moist. Grossly, no palpable lymph nodes in the supraclavicular or submandibular lymph node chains. LUNGS: Auscultation of both lung sanchez faint rhonchi, slightly prolonged expiratory phase. No active wheezing. CARDIOVASCULAR: Heart sounds 1 and 2 were heard at the time of my evaluation. Regular rate and rhythm without rubs or murmurs. ABDOMEN: Soft, full, protuberant, but not distended. Bowel sounds positive, but hypoactive. No palpable hepatosplenomegaly. EXTREMITIES: Without overt digital clubbing or cyanosis. No pedal edema. Dorsalis pedis pulses weakly palpable. NEUROLOGIC: Pupils were equal, round, about 2-3 mm, reactive to light. Extraocular muscle movements could not be assessed. He did not display significant and spontaneous movements. He does have the baseline left hemiparesis. SKIN: Poor turgor. He has stasis dermatitis type rash without overt cellulitis. LABORATORY DATA: For my review are as follows: Admission white cell count 8700, hemoglobin 10.4, hematocrit 32.6, platelet count of 105. INR 1.28. Arterial blood gas at presentation pH 7.55, pCO2 of 32, pO2 of 90 that was on 100% FiO2. Vent settings at that time were not recorded. Most recent ABG shows a pO2 of 109 on 100% FiO2. Serum sodium was 146 at presentation with potassium of 4.3, chloride was 105, bicarb 24, BUN 26, creatinine 1.7. Glucose was 133. Lactic acid level was elevated at 3.8. Liver function tests essentially within normal limits. Troponin output 0.117, CRP was 25.7, albumin low at 2.5. Otherwise, liver function tests essentially within normal limits. LDL cholesterol was 42. Urinalysis was unremarkable and negative for leukocyte esterase and nitrites. Lactic acid level remains elevated at 3.6. Blood cultures, tracheal aspirate, urine cultures; all no growth to date. Chest x-ray was done. Under CT angiogram I have reviewed that. Essentially, he had right mainstem intubation with collapse of the left lung. No obvious filling defects consistent with pulmonary emboli on the CT angio. Really, no overt focal pulmonary infiltrates. ASSESSMENT: 1. Acute hypoxemic respiratory failure, on mechanical ventilatory support. 2. Severe sepsis. 3. Acute kidney injury. 4. Elevated serum troponins. 5. Anemia, normocytic. 6. Thrombocytopenia. 7. Hypernatremia, mild. 8. Hypoalbuminemia. 9. Acute on chronic encephalopathy. 10. Oropharyngeal dysphagia. PLAN: We will continue sepsis protocol. Continue volume resuscitation in this gentleman. Vasopressors will be titrated and weaned to keep MAP greater than or equal to about 65 mmHg acutely. He is appropriately on broad-spectrum antibiotic therapy. We will continue that acutely. They will be deescalated based on clinical and microbiological data. Infectious Disease consultation will be at the best of the attending physician. Enteral nutrition will be the feeding modality of choice. He is appropriately on GI prophylaxis. Ventilator-associated pneumonia bundle has been instituted. Daily sedation assessment trials as well as SVTs will begin once more stable. DVT prophylaxis acutely will be in the form of SCDs. I will review his most recent records to see via QT of this laboratory abnormalities. The kidney injury does appear acute. Thrombocytopenia is worse, but was present at the last admission. For now, he remains a full code. I will try and reach out to family and make sure that our goals of care are in keeping with the patient's known goals of care. GI consult has been placed. I will defer to them. There is no gross active bleeding at this time. Flu and pneumonia vaccination will be addressed per protocol. Thank you very much for the consult. I must say I am bothered with the mental status and a tracheostomy may be a real option if further care is desired. It will depend on his progress going forwards. We will follow along. We will make further recommendations as the picture progresses/becomes clearer. He is critically ill and lifestyle interventions including mechanical ventilatory support and vasopressor at high risk for decompensation including in particular with relation to the respiratory, cardiac and neurologic systems. At this time, I spent about 35-40 minutes of critical care time without overlap and excluded any procedural time that may be necessary. Thank you very much for the consult. JOB# [id number] [facility]
[2017-11-12 13:39] LABS: Creatine Kinase MB 1.2 ng/mL (0.0-4.0)
[2017-11-12] MEDS: ZOSYN/NS 4.5GM/100ML 4.5 GM/100 ML VIAL IV SCH ×3 (15:21→22:10)
[2017-11-12] MEDS ORDERED: LANOXIN IV ONE (20:40)
[2017-11-12 20:44] LABS: Creatine Kinase MB < 1.0 ng/mL (0.0-4.0)
[2017-11-12] MEDS ORDERED: VANCOMYCIN 1,250 MG in NACL 0.9% 250ML 250 ML IV SCH (22:00)
[2017-11-13] MEDS: NACL 0.9% 1000 ML 1,000 ML IV SCH ×3 (01:03→17:01)
[2017-11-13] MEDS: LEVOPHED DRIP 4 MG/NS 250 ML 4 MG/250 ML BAG IV SCH (01:04)
[2017-11-13 05:20] LABS: Basophils % (Auto) 0.2 % (0.0-1.8); Hematocrit 30.1 % (35.5-45.6); Hemoglobin 9.3 gm/dl (11.8-15.2); Lymphocytes # (Auto) 1.1 K/mm3 (1.2-5.4); Lymphocytes % (Auto) 8.6 % (13.4-35.0); Mean Corpuscular HGB Conc 31 % (32-34); Mean Corpuscular Hemoglobin 26 pg (28-32); Mean Corpuscular Volume 86 fl (84-94); Monocytes # (Auto) 1.4 K/mm3 (0.0-0.8); Monocytes % (Auto) 11.1 % (0.0-7.3); Platelet Count 128 K/mm3 (140-440); Red Blood Count 3.51 M/mm3 (3.65-5.03)
[2017-11-13 05:47] LABS: Calcium 7.9 mg/dL (8.4-10.2)
[2017-11-13] MEDS: ZOSYN/NS 4.5GM/100ML 4.5 GM/100 ML VIAL IV SCH (06:31)
[2017-11-13] MEDS: DIPRIVAN 10 MG/ML 1,000 MG/100 ML BOTTLE IV SCH (08:24)
--- NOTE | 2017-11-13 09:31 | Gastroenterology Progress Note ---
<LUCIO DAMIAN - Last Filed: 11/13/17 09:25> Assessment and Plan 1.coffee-ground emesis 2.acute respiratory failure 3.septic shock 4.pneumonia 5.recent CVA (s/p CEA) -HGB 9.3 -continue to monitor H/H and transfuse as needed -no active signs of bleeding (scant amount of brown drainage noted in OGT) -s/p EGD/PEG placement last week on 11/06 with no source of bleeding (PEG patent and intact with site w/o s/s of infection/bleeding) -no plans for repeat EGD at this time unless overt bleeding develops, recommend conservative management -okay to resume feedings and anticoagulation if needed per GI standpoint -continue PPI and supportive care -no further recommendations at this time -will sign off, please call if needed Subjective Date of service: 11/13/17 Principal diagnosis: coffee-ground emesis Interval history: Patient sedated and intubated on vent and pressor support. OGT to LIS with scant amount of brown drainage in tube. No hematemsis, melena, or hematochezia per nursing. Objective - Constitutional Vitals: Temp Pulse Resp BP Pulse Ox 99.6 F 120 H 28 H 117/77 100 11/13/17 04:00 11/13/17 09:00 11/13/17 09:00 11/13/17 09:00 11/13/17 09:00 General appearance: other (sedated/ intubated on vent and pressor support) - EENT ENT: other (+ETT, +OGT) - Respiratory Respiratory: bilateral: diminished - Cardiovascular Rhythm: other (tachycardia) - Gastrointestinal General gastrointestinal: Present: soft, non-distended, normal bowel sounds, other (+PEG) - Labs CBC & Chem 7: 11/13/17 04:50 11/13/17 04:50 Labs: Laboratory Results - last 24 hr 11/12/17 11/12/17 11/12/17 04:50 09:24 09:24 WBC RBC Hgb 10.4 L Hct 33.4 L MCV MCH MCHC RDW Plt Count Lymph % (Auto) [place] % (Auto) Eos % (Auto) Baso % (Auto) Lymph # [place] # Eos # Baso # Seg Neutrophils % Seg Neutrophils # POC ABG pH POC ABG pCO2 POC ABG pO2 POC ABG HCO3 POC ABG Total CO2 POC ABG O2 Sat POC ABG Base Excess FiO2 Sodium Potassium Chloride Carbon Dioxide Anion Gap BUN Creatinine Estimated GFR BUN/Creatinine Ratio Glucose Lactic Acid 2.20 H* 2.90 H* Calcium Total Creatine Kinase CK-MB (CK-2) CK-MB (CK-2) Rel Index Troponin T 11/12/17 11/12/17 11/12/17 09:24 09:24 12:56 WBC RBC Hgb Hct MCV MCH MCHC RDW Plt Count Lymph % (Auto) [place] % (Auto) Eos % (Auto) Baso % (Auto) Lymph # [place] # Eos # Baso # Seg Neutrophils % Seg Neutrophils # POC ABG pH POC ABG pCO2 POC ABG pO2 POC ABG HCO3 POC ABG Total CO2 POC ABG O2 Sat POC ABG Base Excess FiO2 Sodium Potassium Chloride Carbon Dioxide Anion Gap BUN Creatinine Estimated GFR BUN/Creatinine Ratio Glucose Lactic Acid Calcium Total Creatine Kinase 63 56 CK-MB (CK-2) 1.6 1.2 CK-MB (CK-2) Rel Index 2.5 2.1 Troponin T 0.091 H 11/12/17 11/12/17 11/13/17 12:56 20:03 04:50 WBC 12.2 H RBC 3.51 L Hgb 9.3 L Hct 30.1 L MCV 86 MCH 26 L MCHC 31 L RDW 18.0 H Plt Count 128 L Lymph % (Auto) 8.6 L [place] % (Auto) 11.1 H Eos % (Auto) 0.0 Baso % (Auto) 0.2 Lymph # 1.1 L [place] # 1.4 H Eos # 0.0 Baso # 0.0 Seg Neutrophils % 80.1 H Seg Neutrophils # 9.8 H POC ABG pH POC ABG pCO2 POC ABG pO2 POC ABG HCO3 POC ABG Total CO2 POC ABG O2 Sat POC ABG Base Excess FiO2 Sodium Potassium Chloride Carbon Dioxide Anion Gap BUN Creatinine Estimated GFR BUN/Creatinine Ratio Glucose Lactic Acid Calcium Total Creatine Kinase 84 CK-MB (CK-2) < 1.0 CK-MB (CK-2) Rel Index 1.1 Troponin T 0.102 H* 0.156 H* D 11/13/17 11/13/17 11/13/17 04:50 04:51 08:13 WBC RBC Hgb Hct MCV MCH MCHC RDW Plt Count Lymph % (Auto) [place] % (Auto) Eos % (Auto) Baso % (Auto) Lymph # [place] # Eos # Baso # Seg Neutrophils % Seg Neutrophils # POC ABG pH 7.441 POC ABG pCO2 30.1 L POC ABG pO2 135 H POC ABG HCO3 20.5 POC ABG Total CO2 21 POC ABG O2 Sat 99 POC ABG Base Excess -4 FiO2 50 Sodium 149 H Potassium 5.1 H Chloride 114.4 H Carbon Dioxide 18 L Anion Gap 22 BUN 52 H Creatinine 3.3 H D Estimated GFR 23 BUN/Creatinine Ratio 16 Glucose 129 H Lactic Acid 2.00 Calcium 7.9 L Total Creatine Kinase CK-MB (CK-2) CK-MB (CK-2) Rel Index Troponin T <MARITZA VAUGHN - Last Filed: 11/13/17 15:34> Assessment and Plan Pt seen and examined. Agree with note above. No signs of overt gi bleeding. conservative management from gi stand point unless signs of overt bleeding. will sign off, please call back as needed. Objective - Constitutional Vitals: Temp Pulse Resp BP Pulse Ox 99.6 F 120 H 28 H 118/75 99 11/13/17 04:00 11/13/17 09:00 11/13/17 09:00 11/13/17 12:00 11/13/17 12:00 - Labs CBC & Chem 7: 11/13/17 04:50 11/13/17 04:50 Labs: Laboratory Results - last 24 hr 11/12/17 11/12/17 11/13/17 04:50 20:03 04:50 WBC 12.2 H RBC 3.51 L Hgb 9.3 L Hct 30.1 L MCV 86 MCH 26 L MCHC 31 L RDW 18.0 H Plt Count 128 L Lymph % (Auto) 8.6 L [place] % (Auto) 11.1 H Eos % (Auto) 0.0 Baso % (Auto) 0.2 Lymph # 1.1 L [place] # 1.4 H Eos # 0.0 Baso # 0.0 Seg Neutrophils % 80.1 H Seg Neutrophils # 9.8 H POC ABG pH POC ABG pCO2 POC ABG pO2 POC ABG HCO3 POC ABG Total CO2 POC ABG O2 Sat POC ABG Base Excess FiO2 Sodium Potassium Chloride Carbon Dioxide Anion Gap BUN Creatinine Estimated GFR BUN/Creatinine Ratio Glucose Lactic Acid 2.20 H* Calcium Total Creatine Kinase 84 CK-MB (CK-2) < 1.0 CK-MB (CK-2) Rel Index 1.1 Troponin T 0.156 H* D 11/13/17 11/13/17 11/13/17 04:50 04:51 08:13 WBC RBC Hgb Hct MCV MCH MCHC RDW Plt Count Lymph % (Auto) [place] % (Auto) Eos % (Auto) Baso % (Auto) Lymph # [place] # Eos # Baso # Seg Neutrophils % Seg Neutrophils # POC ABG pH 7.441 POC ABG pCO2 30.1 L POC ABG pO2 135 H POC ABG HCO3 20.5 POC ABG Total CO2 21 POC ABG O2 Sat 99 POC ABG Base Excess -4 FiO2 50 Sodium 149 H Potassium 5.1 H Chloride 114.4 H Carbon Dioxide 18 L Anion Gap 22 BUN 52 H Creatinine 3.3 H D Estimated GFR 23 BUN/Creatinine Ratio 16 Glucose 129 H Lactic Acid 2.00 Calcium 7.9 L Total Creatine Kinase CK-MB (CK-2) CK-MB (CK-2) Rel Index Troponin T 11/13/17 11/13/17 09:34 14:21 WBC RBC Hgb Hct MCV MCH MCHC RDW Plt Count Lymph % (Auto) [place] % (Auto) Eos % (Auto) Baso % (Auto) Lymph # [place] # Eos # Baso # Seg Neutrophils % Seg Neutrophils # POC ABG pH POC ABG pCO2 POC ABG pO2 POC ABG HCO3 POC ABG Total CO2 POC ABG O2 Sat POC ABG Base Excess FiO2 Sodium Potassium Chloride Carbon Dioxide Anion Gap BUN Creatinine Estimated GFR BUN/Creatinine Ratio Glucose Lactic Acid 2.10 H* 1.80 Calcium Total Creatine Kinase CK-MB (CK-2) CK-MB (CK-2) Rel Index Troponin T
[2017-11-13] MEDS: PROTONIX (nf) FEEDTUBE SCH ×2 (11:21→21:22)
[2017-11-13] MEDS: SODIUM CHLORIDE FLUSH SYRINGE 10 ML IV SCH ×2 (11:22→21:56)
[2017-11-13] MEDS ORDERED: PNEUMOVAX 23 IM ONE (12:00)
--- NOTE | 2017-11-13 12:15 | Consultation ---
History of Present Illness Consult date: 11/13/17 Reason for consult: dyspnea, other (respiratory failure,stroke) History of present illness: 67 y/o AAM , admitted with sepsis,hypotension and ARF,needing intubation. Known to our service with recent DH after admitted for large stroke s/p Rt endarterectomy , with LT hemiparesis. Presented with worsening SOB,AMS and hypotension. No family at bedside CXR and CT showed on evidence of PE, but possible consolidation, obstructive atelectasis LLL Past History Past Medical History: arthritis, CAD, hypertension, stroke Past Surgical History: hernia repair, Other (CEA, PEG) Social history: other (skilled nursing resident) Family history: hypertension Medications and Allergies Allergies Allergy/AdvReac Type Severity Reaction Status Date / Time adhesive tape AdvReac SKIN TEAR Verified 10/09/17 13:53 Home Medications Medication Instructions Recorded Confirmed Last Taken Type Aspirin [Adult Low Dose Aspirin EC] 81 mg PO DAILY 05/18/15 11/13/17 09/15/16 History Cetirizine HCl [Allergy Relief] 10 mg PO DAILY 09/15/16 11/13/17 09/15/16 History Clopidogrel [Plavix] 75 mg PO QDAY 09/15/16 11/13/17 09/15/16 History Meloxicam [Mobic] 15 mg PO DAILY 09/15/16 11/13/17 09/15/16 History Pantoprazole [Protonix TAB] 40 mg PO QDAY 09/15/16 11/13/17 09/15/16 History amLODIPine [Norvasc] 10 mg PO DAILY 09/15/16 11/13/17 09/15/16 History Metoprolol [Lopressor TAB] 25 mg PO BID #60 tablet 01/23/17 11/13/17 Unknown Rx Active Meds: Active Medications Acetaminophen (Tylenol) 650 mg LA Q4H PRN PRN Reason: Pain MILD(1-3)/Fever >100.5/CABELLO Levofloxacin/Dextrose (Levaquin 750mg/150ml) 750 mg in 150 mls @ 100 mls/hr IV Q48H [facility]; Protocol Last Admin: 11/12/17 01:56 Dose: 100 mls/hr Fentanyl Citrate (Fentanyl Drip Premix) 2,000 mcg in 100 mls @ 3.969 mls/hr IV TITR [facility]; Protocol Last Titration: 11/12/17 04:07 Dose: 5 mcg/kg/hr, 19.845 mls/hr Propofol (Diprivan 10 Mg/Ml) 1,000 mg in 100 mls @ 2.381 mls/hr IV TITR [facility]; Protocol Last Admin: 11/13/17 08:24 Dose: 9 mcg/kg/min, 4.286 mls/hr Norepinephrine (Levophed Drip 4 Mg/Ns 250 Ml) 4 mg in 250 mls @ 7.5 mls/hr IV TITR [facility]; Protocol Last Titration: 11/13/17 01:05 Dose: 7 mcg/min, 26.25 mls/hr Sodium Chloride (Nacl 0.9% 1000 Ml) 1,000 mls @ 150 mls/hr IV DIRECT [facility] Last Admin: 11/13/17 11:22 Dose: 150 mls/hr Piperacillin Sod/Tazobactam Sod (Zosyn/Ns 2.25 Gm/50ml) 2.25 gm in 50 mls @ 100 mls/hr IV Q8HR [facility] Ondansetron HCl (Zofran) 4 mg IV Q8H PRN PRN Reason: Nausea And Vomiting Pantoprazole (Protonix) 40 mg FEEDTUBE BID [facility] Last Admin: 11/13/17 11:21 Dose: 40 mg Sodium Chloride (Sodium Chloride Flush Syringe 10 Ml) 10 ml IV BID [facility] Last Admin: 11/13/17 11:22 Dose: 10 ml Sodium Chloride (Sodium Chloride Flush Syringe 10 Ml) 10 ml IV PRN PRN PRN Reason: LINE FLUSH Review of Systems ROS unobtainable: due to mental status Physical Examination Vital signs: Vital Signs Pulse Resp BP Pulse Ox 135 H 32 H 126/86 94 11/11/17 22:26 11/11/17 22:26 11/11/17 22:26 11/11/17 22:26 General appearance: lethargic, other (intubated) Eyes: non-icteric ENT: oropharynx moist, other (ETT at 24 cm) Neck: supple, no JVD Ascultation: Bilateral: rhonchi (bilateral LT >>RT) Cardiovascular: regular rate and rhythm, other (tachycardic) Gastrointestinal: normoactive bowel sounds, non-distended Integumentary: normal Extremities: no cyanosis, no edema, other (RT femoral line in place) unable to assess (on propofol) Results - Laboratory Findings CBC and BMP: 11/13/17 04:50 11/13/17 04:50 ABG POC ABG pH 7.441 (7.35-7.45) 11/13/17 04:51 POC ABG pCO2 30.1 (35-45) L 11/13/17 04:51 POC ABG pO2 135 (80-105) H 11/13/17 04:51 POC ABG HCO3 20.5 11/13/17 04:51 POC ABG Total CO2 21 11/13/17 04:51 POC ABG O2 Sat 99 11/13/17 04:51 PT/INR, D-dimer PT 16.7 Sec. (12.2-14.9) H 11/12/17 00:23 INR 1.28 (0.87-1.13) H 11/12/17 00:23 Abnormal lab findings: Abnormal Labs 11/11/17 11/11/17 11/11/17 23:18 23:20 23:20 WBC RBC Hgb 10.4 L Hct 32.6 L D MCH 27 L MCHC RDW 17.4 H Plt Count 105 L Lymph % (Auto) [place] % (Auto) Lymph # [place] # Seg Neutrophils % Lymphocytes % (Manual) 8.0 L Nucleated RBC % 1.0 H Seg Neutrophils # Lymphocytes # (Manual) 0.7 L PT INR POC ABG pH 7.550 H POC ABG pCO2 31.6 L POC ABG pO2 Sodium 146 H Potassium Chloride Carbon Dioxide BUN 26 H Creatinine 1.7 H D Glucose 133 H Lactic Acid Calcium Troponin T 0.117 H* C-Reactive Protein Albumin 2.5 L LDL Cholesterol Direct 42 L HDL Cholesterol 24 L 11/11/17 11/12/17 11/12/17 23:20 00:23 00:23 WBC RBC Hgb Hct MCH MCHC RDW Plt Count Lymph % (Auto) [place] % (Auto) Lymph # [place] # Seg Neutrophils % Lymphocytes % (Manual) Nucleated RBC % Seg Neutrophils # Lymphocytes # (Manual) PT 16.7 H INR 1.28 H POC ABG pH POC ABG pCO2 POC ABG pO2 Sodium Potassium Chloride Carbon Dioxide BUN Creatinine Glucose Lactic Acid 3.20 H* Calcium Troponin T C-Reactive Protein 25.70 H Albumin LDL Cholesterol Direct HDL Cholesterol 11/12/17 11/12/17 11/12/17 00:46 01:27 01:27 WBC RBC Hgb Hct MCH MCHC RDW Plt Count Lymph % (Auto) [place] % (Auto) Lymph # [place] # Seg Neutrophils % Lymphocytes % (Manual) Nucleated RBC % Seg Neutrophils # Lymphocytes # (Manual) PT INR POC ABG pH 7.495 H POC ABG pCO2 32.0 L POC ABG pO2 64 L Sodium Potassium Chloride Carbon Dioxide BUN Creatinine Glucose Lactic Acid 3.70 H* Calcium Troponin T 0.096 H C-Reactive Protein Albumin LDL Cholesterol Direct HDL Cholesterol 11/12/17 11/12/17 11/12/17 03:21 04:50 06:27 WBC RBC Hgb Hct MCH MCHC RDW Plt Count Lymph % (Auto) [place] % (Auto) Lymph # [place] # Seg Neutrophils % Lymphocytes % (Manual) Nucleated RBC % Seg Neutrophils # Lymphocytes # (Manual) PT INR POC ABG pH POC ABG pCO2 POC ABG pO2 109 H Sodium Potassium Chloride Carbon Dioxide BUN Creatinine Glucose Lactic Acid 3.80 H* 2.20 H* Calcium Troponin T C-Reactive Protein Albumin LDL Cholesterol Direct HDL Cholesterol 11/12/17 11/12/17 11/12/17 09:24 09:24 09:24 WBC RBC Hgb 10.4 L Hct 33.4 L MCH MCHC RDW Plt Count Lymph % (Auto) [place] % (Auto) Lymph # [place] # Seg Neutrophils % Lymphocytes % (Manual) Nucleated RBC % Seg Neutrophils # Lymphocytes # (Manual) PT INR POC ABG pH POC ABG pCO2 POC ABG pO2 Sodium Potassium Chloride Carbon Dioxide BUN Creatinine Glucose Lactic Acid 2.90 H* Calcium Troponin T 0.091 H C-Reactive Protein Albumin LDL Cholesterol Direct HDL Cholesterol 11/12/17 11/12/17 11/12/17 12:56 20:03 Unknown WBC RBC Hgb Hct MCH MCHC RDW Plt Count Lymph % (Auto) [place] % (Auto) Lymph # [place] # Seg Neutrophils % Lymphocytes % (Manual) Nucleated RBC % Seg Neutrophils # Lymphocytes # (Manual) PT INR POC ABG pH POC ABG pCO2 POC ABG pO2 Sodium Potassium Chloride Carbon Dioxide BUN Creatinine Glucose Lactic Acid 3.60 H* Calcium Troponin T 0.102 H* 0.156 H* D C-Reactive Protein Albumin LDL Cholesterol Direct HDL Cholesterol 11/12/17 11/13/17 11/13/17 Unknown 04:50 04:50 WBC 12.2 H RBC 3.51 L Hgb 9.3 L Hct 30.1 L MCH 26 L MCHC 31 L RDW 18.0 H Plt Count 128 L Lymph % (Auto) 8.6 L [place] % (Auto) 11.1 H Lymph # 1.1 L [place] # 1.4 H Seg Neutrophils % 80.1 H Lymphocytes % (Manual) Nucleated RBC % Seg Neutrophils # 9.8 H Lymphocytes # (Manual) PT INR POC ABG pH POC ABG pCO2 POC ABG pO2 Sodium 149 H Potassium 5.1 H Chloride 114.4 H Carbon Dioxide 18 L BUN 52 H Creatinine 3.3 H D Glucose 129 H Lactic Acid Calcium 7.9 L Troponin T 0.098 H C-Reactive Protein Albumin LDL Cholesterol Direct HDL Cholesterol 11/13/17 11/13/17 04:51 09:34 WBC RBC Hgb Hct MCH MCHC RDW Plt Count Lymph % (Auto) [place] % (Auto) Lymph # [place] # Seg Neutrophils % Lymphocytes % (Manual) Nucleated RBC % Seg Neutrophils # Lymphocytes # (Manual) PT INR POC ABG pH POC ABG pCO2 30.1 L POC ABG pO2 135 H Sodium Potassium Chloride Carbon Dioxide BUN Creatinine Glucose Lactic Acid 2.10 H* Calcium Troponin T C-Reactive Protein Albumin LDL Cholesterol Direct HDL Cholesterol - Diagnostic Findings Chest x-ray: report reviewed, image reviewed CT scan - chest: report reviewed, image reviewed Assessment and Plan Acute respiratory failure. multifactoria, sepsis, aspirationpneumonia, mucous plugging Sepsis,due to the above AMS Stroke Recommendations Serial BP monitoring Keep MAP > 65 Monitor UO, keep > 30 cc/ hr Serial lactate levels q 6-8 hr x 4 Repeat NSS bolus 500 cc as needed to keep MAP > 65 or to max. of 2 L PRBC if Hgb < 7 Monitor for any bleeding f/u hospital ventilator bundle, Mechanical ventilation support, adjust FiO2 with goal of maintaining oximetry at or above 92% Titrate PEEP up to maintain oximetry of the above oximetry level Set tidal Volume set initially at 6-8 cm PBW for LINDSEY protection Keep PIP < 30 Sedation as needed for patient comfort, adjust to RASS -1 to - 3 Maintain extubation precautions Daily morning sedation vacation and initiate SBT if deemed appropriate Continue antibiotics, check cultures Monitor cardiac enzymes and serial EKG for any additional changes. Probably shock related ischemia changes DVT prophylaxis PPI prophylaxis No family available for case discussion. Patient will likely need early tracheotomy in view of clinical picture. This in order to maintain proper and will control and secretion management Critical care time was 31 minutes of [id number] evaluation and coordination of care
--- NOTE | 2017-11-13 12:57 | Progress Note ---
Assessment and Plan Assessment and plan: Mr. Echavarria is a 67 yo man with a history of hypertension, CVA, OA and CAD who was admitted last month for large cva, causing Left hemiplegia, aphasia therefore peg was placed, dysphagia, and poor ability to clear his secretions, he was on abx for tracheobronchitis, he was dc to rehab, he was sent back to hospital for acute respiratory failure and and intubated Acute respiratory failure on MV; continue vent; it was conveyed to his daughter that he is not able to protect his airway well, therefore planned for trach, his daughter is still resistant to it -REcent CVA; continue secondary stroke ppx PNA/tracheobronchitis; cont abx, continue pulmonary toilet -Right Carotid artery stenosis and thrombosis post CEA surgery septic shock; weaned off pressors -Dyslipidemia; statin -Hypernatremia, continue free water and D5w -Acute metabolic encephalopathy: correct sodium level very carefully Dysphagia with aspiration; sp peg tube Coffee-ground material from peg tube; continue suction, keeping npo, per gi his presentation is not cw gi bleed Daughter wants to continue aggressive management, she believes he will recover, she is not interested in DNR or Hospice at this time CCT 33 minutes History Interval history: has now been weaned off pressors -continues to have coffee grounds suctioning from peg tube no seizures, Hospitalist Physical - Constitutional Vitals: Temp Pulse Resp BP Pulse Ox 99.6 F 120 H 28 H 117/77 100 11/13/17 04:00 11/13/17 09:00 11/13/17 09:00 11/13/17 09:00 11/13/17 09:00 General appearance: Present: mild distress, other (intubated on the vent) - EENT Eyes: Present: PERRL - Neck Neck: Present: supple - Respiratory Respiratory effort: labored Respiratory: bilateral: rales - Cardiovascular Rhythm: regular Heart Sounds: Present: S1 & S2 - Extremities Extremities: no ischemia - Abdominal General gastrointestinal: soft, non-tender - Integumentary Integumentary: Present: clear, warm, dry - Psychiatric Psychiatric: other (intubated) - Neurologic Neurologic: focal deficits (right hemiplegia) Results - Labs CBC & Chem 7: 11/17/17 10:00 11/17/17 04:07 Labs: Laboratory Last Values WBC 12.2 K/mm3 (4.5-11.0) H 11/13/17 04:50 RBC 3.51 M/mm3 (3.65-5.03) L 11/13/17 04:50 Hgb 9.3 gm/dl (11.8-15.2) L 11/13/17 04:50 Hct 30.1 % (35.5-45.6) L 11/13/17 04:50 MCV 86 fl (84-94) 11/13/17 04:50 MCH 26 pg (28-32) L 11/13/17 04:50 MCHC 31 % (32-34) L 11/13/17 04:50 RDW 18.0 % (13.2-15.2) H 11/13/17 04:50 Plt Count 128 K/mm3 (140-440) L 11/13/17 04:50 Lymph % (Auto) 8.6 % (13.4-35.0) L 11/13/17 04:50 [place] % (Auto) 11.1 % (0.0-7.3) H 11/13/17 04:50 Eos % (Auto) 0.0 % (0.0-4.3) 11/13/17 04:50 Baso % (Auto) 0.2 % (0.0-1.8) 11/13/17 04:50 Lymph # 1.1 K/mm3 (1.2-5.4) L 11/13/17 04:50 [place] # 1.4 K/mm3 (0.0-0.8) H 11/13/17 04:50 Eos # 0.0 K/mm3 (0.0-0.4) 11/13/17 04:50 Baso # 0.0 K/mm3 (0.0-0.1) 11/13/17 04:50 Add Manual Diff Complete 11/11/17 23:20 Total Counted 100 11/11/17 23:20 Seg Neutrophils % 80.1 % (40.0-70.0) H 11/13/17 04:50 Seg Neuts % (Manual) 58.0 % (40.0-70.0) 11/11/17 23:20 Band Neutrophils % 27.0 % 11/11/17 23:20 Lymphocytes % (Manual) 8.0 % (13.4-35.0) L 11/11/17 23:20 Reactive Lymphs % (Man) 0 % 11/11/17 23:20 Monocytes % (Manual) 7.0 % (0.0-7.3) 11/11/17 23:20 Eosinophils % (Manual) 0 % (0.0-4.3) 11/11/17 23:20 Basophils % (Manual) 0 % (0.0-1.8) 11/11/17 23:20 Metamyelocytes % 0 % 11/11/17 23:20 Myelocytes % 0 % 11/11/17 23:20 Promyelocytes % 0 % 11/11/17 23:20 Blast Cells % 0 % 11/11/17 23:20 Nucleated RBC % 1.0 % (0.0-0.9) H 11/11/17 23:20 Seg Neutrophils # 9.8 K/mm3 (1.8-7.7) H 11/13/17 04:50 Seg Neutrophils # Man 5.0 K/mm3 (1.8-7.7) 11/11/17 23:20 Band Neutrophils # 2.3 K/mm3 11/11/17 23:20 Lymphocytes # (Manual) 0.7 K/mm3 (1.2-5.4) L 11/11/17 23:20 Abs React Lymphs (Man) 0.0 K/mm3 11/11/17 23:20 Monocytes # (Manual) 0.6 K/mm3 (0.0-0.8) 11/11/17 23:20 Eosinophils # (Manual) 0.0 K/mm3 (0.0-0.4) 11/11/17 23:20 Basophils # (Manual) 0.0 K/mm3 (0.0-0.1) 11/11/17 23:20 Metamyelocytes # 0.0 K/mm3 11/11/17 23:20 Myelocytes # 0.0 K/mm3 11/11/17 23:20 Promyelocytes # 0.0 K/mm3 11/11/17 23:20 Blast Cells # 0.0 K/mm3 11/11/17 23:20 WBC Morphology Not Reportable 11/11/17 23:20 Hypersegmented Neuts Not Reportable 11/11/17 23:20 Hyposegmented Neuts Not Reportable 11/11/17 23:20 Hypogranular Neuts Not Reportable 11/11/17 23:20 Smudge Cells Not Reportable 11/11/17 23:20 Toxic Granulation Not Reportable 11/11/17 23:20 Toxic Vacuolation Not Reportable 11/11/17 23:20 Dohle Bodies Not Reportable 11/11/17 23:20 Pelger-Huet Anomaly Not Reportable 11/11/17 23:20 Evangelina Rods Not Reportable 11/11/17 23:20 Platelet Estimate Consistent w auto 11/11/17 23:20 Clumped Platelets Not Reportable 11/11/17 23:20 Plt Clumps, EDTA Not Reportable 11/11/17 23:20 Large Platelets Not Reportable 11/11/17 23:20 Giant Platelets Not Reportable 11/11/17 23:20 Platelet Satelliting Not Reportable 11/11/17 23:20 Plt Morphology Comment Not Reportable 11/11/17 23:20 RBC Morphology Not Reportable 11/11/17 23:20 Dimorphic RBCs Not Reportable 11/11/17 23:20 Polychromasia Not Reportable 11/11/17 23:20 Hypochromasia Not Reportable 11/11/17 23:20 Poikilocytosis Not Reportable 11/11/17 23:20 Anisocytosis 1+ 11/11/17 23:20 Microcytosis Not Reportable 11/11/17 23:20 Macrocytosis Not Reportable 11/11/17 23:20 Spherocytes Not Reportable 11/11/17 23:20 Pappenheimer Bodies Not Reportable 11/11/17 23:20 Sickle Cells Not Reportable 11/11/17 23:20 Target Cells Not Reportable 11/11/17 23:20 Tear Drop Cells Not Reportable 11/11/17 23:20 Ovalocytes 1+ 11/11/17 23:20 Helmet Cells Not Reportable 11/11/17 23:20 Dukes-Cecil-Bishop Bodies Not Reportable 11/11/17 23:20 [place] Rings Not Reportable 11/11/17 23:20 Lucretia Cells Not Reportable 11/11/17 23:20 Bite Cells Not Reportable 11/11/17 23:20 Crenated Cell Not Reportable 11/11/17 23:20 Elliptocytes Not Reportable 11/11/17 23:20 Acanthocytes (Spur) Not Reportable 11/11/17 23:20 Rouleaux Not Reportable 11/11/17 23:20 Hemoglobin C Crystals Not Reportable 11/11/17 23:20 Schistocytes Not Reportable 11/11/17 23:20 Malaria parasites Not Reportable 11/11/17 23:20 [place] Bodies Not Reportable 11/11/17 23:20 Hem Pathologist Commnt No 11/11/17 23:20 PT 16.7 Sec. (12.2-14.9) H 11/12/17 00:23 INR 1.28 (0.87-1.13) H 11/12/17 00:23 APTT 31.7 Sec. (24.2-36.6) 11/12/17 00:23 POC ABG pH 7.441 (7.35-7.45) 11/13/17 04:51 POC ABG pCO2 30.1 (35-45) L 11/13/17 04:51 POC ABG pO2 135 (80-105) H 11/13/17 04:51 POC ABG HCO3 20.5 11/13/17 04:51 POC ABG Total CO2 21 11/13/17 04:51 POC ABG O2 Sat 99 11/13/17 04:51 POC ABG Base Excess -4 11/13/17 04:51 FiO2 50 % 11/13/17 04:51 Sodium 149 mmol/L (137-145) H 11/13/17 04:50 Potassium 5.1 mmol/L (3.6-5.0) H 11/13/17 04:50 Chloride 114.4 mmol/L (98-107) H 11/13/17 04:50 Carbon Dioxide 18 mmol/L (22-30) L 11/13/17 04:50 Anion Gap 22 mmol/L 11/13/17 04:50 BUN 52 mg/dL (9-20) H 11/13/17 04:50 Creatinine 3.3 mg/dL (0.8-1.5) H D 11/13/17 04:50 Estimated GFR 23 ml/min 11/13/17 04:50 BUN/Creatinine Ratio 16 % 11/13/17 04:50 Glucose 129 mg/dL (75-100) H 11/13/17 04:50 Lactic Acid 2.10 mmol/L (0.7-2.0) H* 11/13/17 09:34 Calcium 7.9 mg/dL (8.4-10.2) L 11/13/17 04:50 Total Bilirubin 1.10 mg/dL (0.1-1.2) 11/11/17 23:20 AST 27 units/L (5-40) 11/11/17 23:20 ALT 40 units/L (7-56) 11/11/17 23:20 Alkaline Phosphatase 90 units/L (35-129) 11/11/17 23:20 Total Creatine Kinase 84 units/L (55-170) 11/12/17 20:03 CK-MB (CK-2) < 1.0 ng/mL (0.0-4.0) 11/12/17 20:03 CK-MB (CK-2) Rel Index 1.1 (0-4) 11/12/17 20:03 Troponin T 0.098 ng/mL (0.00-0.029) H 11/12/17 Unknown C-Reactive Protein 25.70 mg/dL (0.00-1.30) H 11/11/17 23:20 NT-Pro-B Natriuret Pep 792.4 pg/mL (0-900) 11/11/17 23:20 Total Protein 6.5 g/dL (6.3-8.2) 11/11/17 23:20 Albumin 2.5 g/dL (3.9-5) L 11/11/17 23:20 Albumin/Globulin Ratio 0.6 % 11/11/17 23:20 Triglycerides 86 mg/dL (2-149) 11/11/17 23:20 Cholesterol 82 mg/dL (50-199) 11/11/17 23:20 LDL Cholesterol Direct 42 mg/dL (50-130) L 11/11/17 23:20 HDL Cholesterol 24 mg/dL (40-59) L 11/11/17 23:20 Cholesterol/HDL Ratio 3.41 % 11/11/17 23:20 Lipase 30 units/L (13-60) 11/11/17 23:20 Urine Color Nicole (Yellow) 11/11/17 23:09 Urine Turbidity Cloudy (Clear) 11/11/17 23:09 Urine pH 5.0 (5.0-7.0) 11/11/17 23:09 Ur Specific [place] 1.025 (1.003-1.030) 11/11/17 23:09 Urine Protein 100 mg/dl mg/dL (Negative) 11/11/17 23:09 Urine Glucose (UA) 50 mg/dL (Negative) 11/11/17 23:09 Urine Ketones Neg mg/dL (Negative) 11/11/17 23:09 Urine Blood Neg (Negative) 11/11/17 23:09 Urine Nitrite Neg (Negative) 11/11/17 23:09 Urine Bilirubin Neg (Negative) 11/11/17 23:09 Urine Urobilinogen 4.0 mg/dL (<2.0) 11/11/17 23:09 Ur Leukocyte Esterase Neg (Negative) 11/11/17 23:09 Urine WBC (Auto) 5.0 /HPF (0.0-6.0) 11/11/17 23:09 Urine RBC (Auto) 4.0 /HPF (0.0-6.0) 11/11/17 23:09 Urine Bacteria (Auto) 3+ /HPF (Negative) 11/11/17 23:09 Amorphous Crystals 3+ 11/11/17 23:09 Hyaline Casts 76 /LPF 11/11/17 23:09 Urine Mucus 2+ /HPF 11/11/17 23:09
--- NOTE | 2017-11-13 13:04 | Progress Note ---
Assessment and Plan - Patient Problems (1) Acute respiratory failure with hypoxemia Current Visit: Yes Status: Acute Plan to address problem: Management of respiratory failure and multi lobar pneumonia per the recommendations of internal medicine and pulmonology. Cardiac status is stable, we will follow intermittently. Subjective Date of service: 11/13/17 Principal diagnosis: coffee-ground emesis Interval history: Patient is sedated on the vent. 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 Currently stable blood pressure, sinus rhythm. Objective Vital Signs Temp Pulse Resp BP Pulse Ox 11/13/17 09:00 120 H 28 H 117/77 100 11/13/17 08:45 114 H 25 H 113/73 100 11/13/17 08:30 138 H 25 H 114/71 100 11/13/17 08:15 119 H 27 H 101/80 99 11/13/17 08:00 125 H 26 H 118/75 100 11/13/17 07:45 117 H 24 115/76 100 11/13/17 07:30 117 H 25 H 114/71 100 11/13/17 07:15 119 H 26 H 109/73 100 11/13/17 07:00 132 H 30 H 114/75 99 11/13/17 06:45 125 H 28 H 114/75 100 11/13/17 06:30 128 H 29 H 118/75 100 11/13/17 06:15 122 H 25 H 117/71 100 11/13/17 06:00 125 H 29 H 116/76 100 11/13/17 05:45 128 H 26 H 115/74 100 11/13/17 05:30 127 H 29 H 116/77 100 11/13/17 05:15 125 H 28 H 110/74 100 11/13/17 05:00 126 H 29 H 112/74 100 11/13/17 04:45 129 H 28 H 126/73 99 11/13/17 04:37 132 H 116/72 99 11/13/17 04:30 123 H 27 H 116/72 100 11/13/17 04:15 122 H 26 H 112/71 100 11/13/17 04:00 99.6 F 123 H 28 H 109/70 100 11/13/17 03:45 130 H 26 H 112/70 100 11/13/17 03:30 130 H 24 96/67 100 11/13/17 03:15 142 H 29 H 101/72 99 11/13/17 03:01 137 H 22 114/71 99 11/13/17 02:45 134 H 28 H 114/71 100 11/13/17 02:30 134 H 28 H 106/73 100 11/13/17 02:17 134 H 96/69 100 11/13/17 02:15 136 H 26 H 96/69 100 11/13/17 02:00 131 H 26 H 106/70 100 11/13/17 01:45 131 H 28 H 107/74 100 11/13/17 01:30 134 H 28 H 104/68 100 11/13/17 01:15 133 H 27 H 108/70 100 11/13/17 01:00 135 H 28 H 113/70 100 11/13/17 00:45 139 H 27 H 113/70 100 11/13/17 00:30 143 H 28 H 113/74 100 11/13/17 00:15 141 H 29 H 106/69 100 11/13/17 00:03 143 H 28 H 115/70 100 11/13/17 00:00 137 H 26 H 115/70 100 11/12/17 23:46 100.6 F H 11/12/17 23:45 146 H 26 H 113/72 100 11/12/17 23:30 148 H 29 H 114/73 100 11/12/17 23:26 148 H 109/75 100 11/12/17 23:15 146 H 28 H 109/75 100 11/12/17 23:00 145 H 28 H 112/72 100 11/12/17 22:45 148 H 24 110/72 100 11/12/17 22:30 148 H 21 119/71 100 18 22:15 147 H 29 H 116/73 100 18 22:00 146 H 28 H 104/72 100 11/12/17 21:45 138 H 26 H 117/73 100 18 21:30 154 H 23 118/76 100 11/12/17 21:15 151 H 26 H 115/73 100 18 21:00 151 H 27 H 118/75 100 18 20:45 150 H 26 H 119/76 100 11/12/17 20:30 153 H 26 H 111/76 100 11/12/17 20:15 153 H 26 H 110/73 100 11/12/17 20:10 155 H 118/76 11/12/17 20:00 98 F 157 H 29 H 100/67 100 11/12/17 19:45 167 H 26 H 111/72 100 11/12/17 19:31 172 H 24 114/73 100 11/12/17 19:15 168 H 31 H 113/74 100 11/12/17 19:00 149 H 24 105/72 100 11/12/17 18:45 152 H 24 108/72 100 11/12/17 18:31 151 H 28 H 109/73 100 11/12/17 18:15 152 H 22 111/76 100 11/12/17 18:00 152 H 22 105/73 100 11/12/17 17:45 151 H 27 H 106/71 100 11/12/17 17:30 149 H 26 H 110/73 100 11/12/17 17:15 151 H 24 105/71 100 11/12/17 17:00 152 H 29 H 108/73 100 11/12/17 16:45 147 H 41 H 106/79 98 11/12/17 16:43 152 H 106/78 99 11/12/17 16:30 150 H 27 H 106/79 99 11/12/17 16:15 151 H 27 H 123/80 100 11/12/17 16:01 152 H 32 H 112/82 99 11/12/17 16:00 100 11/12/17 15:45 149 H 31 H 114/78 99 11/12/17 15:30 149 H 26 H 101/77 100 11/12/17 15:15 147 H 23 101/71 100 11/12/17 15:00 133 H 25 H 95/66 100 11/12/17 14:45 136 H 27 H 89/61 100 11/12/17 14:30 150 H 21 111/72 100 11/12/17 14:15 149 H 26 H 108/73 100 11/12/17 14:00 146 H 25 H 108/66 100 11/12/17 13:54 144 H 94/70 100 11/12/17 13:45 149 H 27 H 94/70 100 11/12/17 13:30 152 H 25 H 113/73 100 11/12/17 13:15 152 H 31 H 106/75 100 11/12/17 13:00 145 H 34 H 96/72 100 - Physical Examination General: Other (sedated, on the vent) HEENT: Positive: PERRL Neck: Positive: neck supple Cardiac: Positive: Reg Rate and Rhythm Lungs: Positive: Decreased Breath Sounds Neuro: Positive: Other (sedated on the vent) Abdomen: Positive: Soft Skin: Positive: Clear Extremities: Absent: edema - Labs and Meds Cardiac Enzymes 11/12/17 11/12/17 Range/Units 12:56 20:03 CK-MB (CK-2) 1.2 < 1.0 (0.0-4.0) ng/mL CBC 11/13/17 Range/Units 04:50 WBC 12.2 H (4.5-11.0) K/mm3 RBC 3.51 L (3.65-5.03) M/mm3 Hgb 9.3 L (11.8-15.2) gm/dl Hct 30.1 L (35.5-45.6) % Plt Count 128 L (140-440) K/mm3 Lymph # 1.1 L (1.2-5.4) K/mm3 [place] # 1.4 H (0.0-0.8) K/mm3 Eos # 0.0 (0.0-0.4) K/mm3 Baso # 0.0 (0.0-0.1) K/mm3 Comprehensive Metabolic Panel 11/13/17 Range/Units 04:50 Sodium 149 H (137-145) mmol/L Potassium 5.1 H (3.6-5.0) mmol/L Chloride 114.4 H (98-107) mmol/L Carbon Dioxide 18 L (22-30) mmol/L BUN 52 H (9-20) mg/dL Creatinine 3.3 H D (0.8-1.5) mg/dL Glucose 129 H (75-100) mg/dL Calcium 7.9 L (8.4-10.2) mg/dL - Imaging and Cardiology EKG: report reviewed
[2017-11-13] MEDS: ZOSYN/NS 2.25 GM/50ML 2.25 GM/50 ML BAG IV SCH ×2 (13:37→21:55)
--- NOTE | 2017-11-13 13:58 | Consultation ---
History of Present Illness Consult date: 11/13/17 Chief complaint: vent dependence - History of present illness History of present illness: 67 yo M with hx of CVA, placement of recent PEG tube [facility] with increasing shortness of breath. Patient was diagnosed with multilobar pneumonia and intubated. He has been on the vent since admission on 11/12/17. The patient cannot provide any history and all history is obtained from the chart. Surgery consulted for tracheostomy. In discussion with critical care, Dr. Suresh, the patient will need tracheostomy to be weaned from vent. Past History Past Medical History: arthritis, CAD, hypertension, stroke Past Surgical History: hernia repair, Other (R CEA, PEG) Social history: other (jail resident) Family history: hypertension Medications and Allergies Allergies Allergy/AdvReac Type Severity Reaction Status Date / Time adhesive tape AdvReac SKIN TEAR Verified 10/09/17 13:53 Home Medications Medication Instructions Recorded Confirmed Last Taken Type Aspirin [Adult Low Dose Aspirin EC] 81 mg PO DAILY 05/18/15 10/04/17 09/15/16 History Cetirizine HCl [Allergy Relief] 10 mg PO DAILY 09/15/16 10/04/17 09/15/16 History Clopidogrel [Plavix] 75 mg PO QDAY 09/15/16 10/04/17 09/15/16 History Meloxicam [Mobic] 15 mg PO DAILY 09/15/16 10/04/17 09/15/16 History Pantoprazole [Protonix TAB] 40 mg PO QDAY 09/15/16 10/04/17 09/15/16 History amLODIPine [Norvasc] 10 mg PO DAILY 09/15/16 10/04/17 09/15/16 History Metoprolol [Lopressor TAB] 25 mg PO BID #60 tablet 01/23/17 10/04/17 Unknown Rx Active Meds: Active Medications Acetaminophen (Tylenol) 650 mg TN Q4H PRN PRN Reason: Pain MILD(1-3)/Fever >100.5/CABELLO Levofloxacin/Dextrose (Levaquin 750mg/150ml) 750 mg in 150 mls @ 100 mls/hr IV Q48H [facility]; Protocol Last Admin: 11/12/17 01:56 Dose: 100 mls/hr Fentanyl Citrate (Fentanyl Drip Premix) 2,000 mcg in 100 mls @ 3.969 mls/hr IV TITR [facility]; Protocol Last Titration: 11/12/17 04:07 Dose: 5 mcg/kg/hr, 19.845 mls/hr Propofol (Diprivan 10 Mg/Ml) 1,000 mg in 100 mls @ 2.381 mls/hr IV TITR [facility]; Protocol Last Admin: 11/13/17 08:24 Dose: 9 mcg/kg/min, 4.286 mls/hr Norepinephrine (Levophed Drip 4 Mg/Ns 250 Ml) 4 mg in 250 mls @ 7.5 mls/hr IV TITR [facility]; Protocol Last Titration: 11/13/17 01:05 Dose: 7 mcg/min, 26.25 mls/hr Sodium Chloride (Nacl 0.9% 1000 Ml) 1,000 mls @ 150 mls/hr IV DIRECT [facility] Last Admin: 11/13/17 11:22 Dose: 150 mls/hr Piperacillin Sod/Tazobactam Sod (Zosyn/Ns 2.25 Gm/50ml) 2.25 gm in 50 mls @ 100 mls/hr IV Q8HR [facility] Last Admin: 11/13/17 13:37 Dose: 100 mls/hr Ondansetron HCl (Zofran) 4 mg IV Q8H PRN PRN Reason: Nausea And Vomiting Pantoprazole (Protonix) 40 mg FEEDTUBE BID [facility] Last Admin: 11/13/17 11:21 Dose: 40 mg Sodium Chloride (Sodium Chloride Flush Syringe 10 Ml) 10 ml IV BID [facility] Last Admin: 11/13/17 11:22 Dose: 10 ml Sodium Chloride (Sodium Chloride Flush Syringe 10 Ml) 10 ml IV PRN PRN PRN Reason: LINE FLUSH Review of Systems ROS unobtainable: due to endotracheal tube Exam Vital Signs Pulse Resp BP Pulse Ox 135 H 32 H 126/86 94 11/11/17 22:26 11/11/17 22:26 11/11/17 22:26 11/11/17 22:26 Narrative exam: Gen: intubated and sedated ENT: trachea midline, no masses. R sided scar on neck. NGT with minimal coffee ground material in tubing and canister CV: S1, S2+ Tachycardic Resp: CTAB, no w/r/r Abd: soft, NT, ND. PEG tube in place Ext: no c/c/e : easley catheter with clear yellow urine Results - Labs 11/13/17 04:50 11/13/17 04:50 Abnormal lab results 11/12/17 11/12/17 11/12/17 Range/Units 04:50 12:56 20:03 WBC (4.5-11.0) K/mm3 RBC (3.65-5.03) M/mm3 Hgb (11.8-15.2) gm/dl Hct (35.5-45.6) % MCH (28-32) pg MCHC (32-34) % RDW (13.2-15.2) % Plt Count (140-440) K/mm3 Lymph % (Auto) (13.4-35.0) % [place] % (Auto) (0.0-7.3) % Lymph # (1.2-5.4) K/mm3 [place] # (0.0-0.8) K/mm3 Seg Neutrophils % (40.0-70.0) % Seg Neutrophils # (1.8-7.7) K/mm3 POC ABG pCO2 (35-45) POC ABG pO2 (80-105) Sodium (137-145) mmol/L Potassium (3.6-5.0) mmol/L Chloride (98-107) mmol/L Carbon Dioxide (22-30) mmol/L BUN (9-20) mg/dL Creatinine (0.8-1.5) mg/dL Glucose (75-100) mg/dL Lactic Acid 2.20 H* (0.7-2.0) mmol/L Calcium (8.4-10.2) mg/dL Troponin T 0.102 H* 0.156 H* D (0.00-0.029) ng/mL 11/13/17 11/13/17 11/13/17 Range/Units 04:50 04:50 04:51 WBC 12.2 H (4.5-11.0) K/mm3 RBC 3.51 L (3.65-5.03) M/mm3 Hgb 9.3 L (11.8-15.2) gm/dl Hct 30.1 L (35.5-45.6) % MCH 26 L (28-32) pg MCHC 31 L (32-34) % RDW 18.0 H (13.2-15.2) % Plt Count 128 L (140-440) K/mm3 Lymph % (Auto) 8.6 L (13.4-35.0) % [place] % (Auto) 11.1 H (0.0-7.3) % Lymph # 1.1 L (1.2-5.4) K/mm3 [place] # 1.4 H (0.0-0.8) K/mm3 Seg Neutrophils % 80.1 H (40.0-70.0) % Seg Neutrophils # 9.8 H (1.8-7.7) K/mm3 POC ABG pCO2 30.1 L (35-45) POC ABG pO2 135 H (80-105) Sodium 149 H (137-145) mmol/L Potassium 5.1 H (3.6-5.0) mmol/L Chloride 114.4 H (98-107) mmol/L Carbon Dioxide 18 L (22-30) mmol/L BUN 52 H (9-20) mg/dL Creatinine 3.3 H D (0.8-1.5) mg/dL Glucose 129 H (75-100) mg/dL Lactic Acid (0.7-2.0) mmol/L Calcium 7.9 L (8.4-10.2) mg/dL Troponin T (0.00-0.029) ng/mL 11/13/17 Range/Units 09:34 WBC (4.5-11.0) K/mm3 RBC (3.65-5.03) M/mm3 Hgb (11.8-15.2) gm/dl Hct (35.5-45.6) % MCH (28-32) pg MCHC (32-34) % RDW (13.2-15.2) % Plt Count (140-440) K/mm3 Lymph % (Auto) (13.4-35.0) % [place] % (Auto) (0.0-7.3) % Lymph # (1.2-5.4) K/mm3 [place] # (0.0-0.8) K/mm3 Seg Neutrophils % (40.0-70.0) % Seg Neutrophils # (1.8-7.7) K/mm3 POC ABG pCO2 (35-45) POC ABG pO2 (80-105) Sodium (137-145) mmol/L Potassium (3.6-5.0) mmol/L Chloride (98-107) mmol/L Carbon Dioxide (22-30) mmol/L BUN (9-20) mg/dL Creatinine (0.8-1.5) mg/dL Glucose (75-100) mg/dL Lactic Acid 2.10 H* (0.7-2.0) mmol/L Calcium (8.4-10.2) mg/dL Troponin T (0.00-0.029) ng/mL Diabetes panel 11/13/17 Range/Units 04:50 Sodium 149 H (137-145) mmol/L Potassium 5.1 H (3.6-5.0) mmol/L Chloride 114.4 H (98-107) mmol/L Carbon Dioxide 18 L (22-30) mmol/L BUN 52 H (9-20) mg/dL Creatinine 3.3 H D (0.8-1.5) mg/dL Glucose 129 H (75-100) mg/dL Calcium 7.9 L (8.4-10.2) mg/dL Calcium panel 11/13/17 Range/Units 04:50 Calcium 7.9 L (8.4-10.2) mg/dL Pituitary panel 11/13/17 Range/Units 04:50 Sodium 149 H (137-145) mmol/L Potassium 5.1 H (3.6-5.0) mmol/L Chloride 114.4 H (98-107) mmol/L Carbon Dioxide 18 L (22-30) mmol/L BUN 52 H (9-20) mg/dL Creatinine 3.3 H D (0.8-1.5) mg/dL Glucose 129 H (75-100) mg/dL Calcium 7.9 L (8.4-10.2) mg/dL Adrenal panel 11/13/17 Range/Units 04:50 Sodium 149 H (137-145) mmol/L Potassium 5.1 H (3.6-5.0) mmol/L Chloride 114.4 H (98-107) mmol/L Carbon Dioxide 18 L (22-30) mmol/L BUN 52 H (9-20) mg/dL Creatinine 3.3 H D (0.8-1.5) mg/dL Glucose 129 H (75-100) mg/dL Calcium 7.9 L (8.4-10.2) mg/dL - Imaging Chest x-ray: report reviewed, image reviewed Assessment and Plan 67 yo M with 1. multilobar PNA 2. Acute respiratory failure on ventilator 3. Septic shock on levophed 4. Abnormal cardiac enzymes 5. ?GIB Plan: 1. continue supportive care per critical care 2. wean pressors as tolerated 4. hold anticoagulation/antiplatelet agents. DVT prophylaxis ok. 5. will speak with family regarding placement of tracheostomy. If agreeable, will plan on percutaneous trachestomy once patient is more stable from a medical standpoint, off pressors Thank you for this consultation, please call with questions or concerns.
--- NOTE | 2017-11-13 15:33 | Event Note ---
Date: 11/13/[address] Card and services handed over to their team. ENT tentatively to see patient today re: tracheostomy
--- NOTE | 2017-11-13 19:20 | Consultation ---
History of Present Illness - Reason for Consult Consult date: 11/13/17 Tracheostomy Requesting physician: DIXON ALBERTO - History of Present Illness Mr. Echavarria is a 67 yo AA man who was admitted 11-12-17 for management of Acute respiratory failure Septic shock Abnormal cardiac enzymes Coffee-ground material from NG tube Coronary artery disease Thrombocytopenia Recent CVA He has failed weening. Past History Past Medical History: arthritis, CAD, hypertension, stroke Past Surgical History: hernia repair, Other (R CEA, PEG) Social history: other (detention resident) Family history: hypertension Medications and Allergies Allergies Allergy/AdvReac Type Severity Reaction Status Date / Time adhesive tape AdvReac SKIN TEAR Verified 10/09/17 13:53 Home Medications Medication Instructions Recorded Confirmed Last Taken Type Aspirin [Adult Low Dose Aspirin EC] 81 mg PO DAILY 05/18/15 11/13/17 09/15/16 History Cetirizine HCl [Allergy Relief] 10 mg PO DAILY 09/15/16 11/13/17 09/15/16 History Clopidogrel [Plavix] 75 mg PO QDAY 09/15/16 11/13/17 09/15/16 History Meloxicam [Mobic] 15 mg PO DAILY 09/15/16 11/13/17 09/15/16 History Pantoprazole [Protonix TAB] 40 mg PO QDAY 09/15/16 11/13/17 09/15/16 History amLODIPine [Norvasc] 10 mg PO DAILY 09/15/16 11/13/17 09/15/16 History Metoprolol [Lopressor TAB] 25 mg PO BID #60 tablet 01/23/17 11/13/17 Unknown Rx Active Meds: Active Medications Acetaminophen (Tylenol) 650 mg [place] Q4H PRN PRN Reason: Pain MILD(1-3)/Fever >100.5/CABELLO Levofloxacin/Dextrose (Levaquin 750mg/150ml) 750 mg in 150 mls @ 100 mls/hr IV Q48H [facility]; Protocol Last Admin: 11/12/17 01:56 Dose: 100 mls/hr Fentanyl Citrate (Fentanyl Drip Premix) 2,000 mcg in 100 mls @ 3.969 mls/hr IV TITR [facility]IRIS; Protocol Last Titration: 11/12/17 04:07 Dose: 5 mcg/kg/hr, 19.845 mls/hr Propofol (Diprivan 10 Mg/Ml) 1,000 mg in 100 mls @ 2.381 mls/hr IV TITR [facility]; Protocol Last Admin: 11/13/17 08:24 Dose: 9 mcg/kg/min, 4.286 mls/hr Norepinephrine (Levophed Drip 4 Mg/Ns 250 Ml) 4 mg in 250 mls @ 7.5 mls/hr IV TITR [facility]IS; Protocol Last Titration: 11/13/17 14:40 Dose: Infused Sodium Chloride (Nacl 0.9% 1000 Ml) 1,000 mls @ 150 mls/hr IV DIRECT [facility]IS Last Admin: 11/13/17 17:01 Dose: 150 mls/hr Piperacillin Sod/Tazobactam Sod (Zosyn/Ns 2.25 Gm/50ml) 2.25 gm in 50 mls @ 100 mls/hr IV Q8HR [facility] Last Admin: 11/13/17 13:37 Dose: 100 mls/hr Ondansetron HCl (Zofran) 4 mg IV Q8H PRN PRN Reason: Nausea And Vomiting Pantoprazole (Protonix) 40 mg FEEDTUBE BID [facility] Last Admin: 11/13/17 11:21 Dose: 40 mg Sodium Chloride (Sodium Chloride Flush Syringe 10 Ml) 10 ml IV BID OSIRIS Last Admin: 11/13/17 11:22 Dose: 10 ml Sodium Chloride (Sodium Chloride Flush Syringe 10 Ml) 10 ml IV PRN PRN PRN Reason: LINE FLUSH Review of Systems ROS unobtainable: due to endotracheal tube Exam - Constitutional Vitals: Temp Pulse Resp BP Pulse Ox 99.6 F 107 H 29 H 97/66 98 11/13/17 04:00 11/13/17 18:45 11/13/17 18:45 11/13/17 18:45 11/13/17 18:30 General appearance: Present: no acute distress - EENT Eyes: Present: PERRL ENT: other (ET in place) - Neck Neck: Present: supple, normal ROM - Respiratory Respiratory effort: normal, other (on vent) - Cardiovascular Rhythm: regular Heart Sounds: Present: S1 & S2 - Extremities Extremities: pulses intact, No edema - Abdominal General gastrointestinal: Present: soft, non-tender Male genitourinary: Present: deferred - Rectal Rectal Exam: deferred - Integumentary Integumentary: Present: clear, warm - Musculoskeletal Musculoskeletal: other (sedated) - Psychiatric Psychiatric: other (sedated) - Neurologic Neurologic: other (sedated) Results - Labs CBC & Chem 7: 11/13/17 04:50 11/13/17 04:50 Labs: Abnormal lab results 11/12/17 11/12/17 11/13/17 Range/Units 04:50 20:03 04:50 WBC 12.2 H (4.5-11.0) K/mm3 RBC 3.51 L (3.65-5.03) M/mm3 Hgb 9.3 L (11.8-15.2) gm/dl Hct 30.1 L (35.5-45.6) % MCH 26 L (28-32) pg MCHC 31 L (32-34) % RDW 18.0 H (13.2-15.2) % Plt Count 128 L (140-440) K/mm3 Lymph % (Auto) 8.6 L (13.4-35.0) % [place] % (Auto) 11.1 H (0.0-7.3) % Lymph # 1.1 L (1.2-5.4) K/mm3 [place] # 1.4 H (0.0-0.8) K/mm3 Seg Neutrophils % 80.1 H (40.0-70.0) % Seg Neutrophils # 9.8 H (1.8-7.7) K/mm3 POC ABG pCO2 (35-45) POC ABG pO2 (80-105) Sodium (137-145) mmol/L Potassium (3.6-5.0) mmol/L Chloride (98-107) mmol/L Carbon Dioxide (22-30) mmol/L BUN (9-20) mg/dL Creatinine (0.8-1.5) mg/dL Glucose (75-100) mg/dL Lactic Acid 2.20 H* (0.7-2.0) mmol/L Calcium (8.4-10.2) mg/dL Troponin T 0.156 H* D (0.00-0.029) ng/mL 11/13/17 11/13/17 11/13/17 Range/Units 04:50 04:51 09:34 WBC (4.5-11.0) K/mm3 RBC (3.65-5.03) M/mm3 Hgb (11.8-15.2) gm/dl Hct (35.5-45.6) % MCH (28-32) pg MCHC (32-34) % RDW (13.2-15.2) % Plt Count (140-440) K/mm3 Lymph % (Auto) (13.4-35.0) % [place] % (Auto) (0.0-7.3) % Lymph # (1.2-5.4) K/mm3 [place] # (0.0-0.8) K/mm3 Seg Neutrophils % (40.0-70.0) % Seg Neutrophils # (1.8-7.7) K/mm3 POC ABG pCO2 30.1 L (35-45) POC ABG pO2 135 H (80-105) Sodium 149 H (137-145) mmol/L Potassium 5.1 H (3.6-5.0) mmol/L Chloride 114.4 H (98-107) mmol/L Carbon Dioxide 18 L (22-30) mmol/L BUN 52 H (9-20) mg/dL Creatinine 3.3 H D (0.8-1.5) mg/dL Glucose 129 H (75-100) mg/dL Lactic Acid 2.10 H* (0.7-2.0) mmol/L Calcium 7.9 L (8.4-10.2) mg/dL Troponin T (0.00-0.029) ng/mL Assessment and Plan - Patient Problems (1) Ventilator dependence Current Visit: Yes Status: Acute Plan to address problem: ween as tolerated (2) Acute respiratory failure with hypoxemia Current Visit: Yes Status: Acute Plan to address problem: Titrate O2 to keep sat.+92% (3) Respiratory failure Current Visit: No Status: Acute Plan to address problem: tracheotomy next week
[2017-11-14] MEDS: NACL 0.9% 1000 ML 1,000 ML IV SCH ×2 (00:34→07:11)
[2017-11-14] MEDS: DIPRIVAN 10 MG/ML 1,000 MG/100 ML BOTTLE IV SCH ×3 (02:50→22:01)
[2017-11-14] MEDS: LEVAQUIN 750MG/150ML 750 MG/150 ML BAG IV SCH (07:08)
[2017-11-14] MEDS: ZOSYN/NS 2.25 GM/50ML 2.25 GM/50 ML BAG IV SCH ×3 (07:17→22:01)
--- NOTE | 2017-11-14 10:39 | Progress Note ---
Assessment and Plan - Patient Problems (1) Ventilator dependence Current Visit: Yes Status: Acute Plan to address problem: ween as tolerated (2) Acute respiratory failure with hypoxemia Current Visit: Yes Status: Acute Plan to address problem: Titrate O2 to keep sat.+92% (3) Respiratory failure Current Visit: No Status: Acute Plan to address problem: tracheotomy next week Subjective Date of service: 11/14/17 Principal diagnosis: coffee-ground emesis Interval history: Pt. resting comfortably, sedated. Objective - Constitutional Vitals: Vital Signs - 12hr 11/13/17 11/13/17 11/13/17 22:45 23:00 23:16 Temperature Pulse Rate 95 H 90 94 H Pulse Rate [ Right From Monitor] Respiratory 25 H 27 H 16 Rate Blood Pressure 103/63 107/60 109/65 O2 Sat by Pulse 100 100 97 Oximetry 11/13/17 11/13/17 11/13/17 23:18 23:30 23:31 Temperature 97.8 F Pulse Rate 100 H 95 H Pulse Rate [ Right From Monitor] Respiratory 26 H 24 Rate Blood Pressure 109/65 104/63 O2 Sat by Pulse 100 Oximetry 11/13/17 11/13/17 11/14/17 23:44 23:45 00:00 Temperature Pulse Rate 95 H 97 H 94 H Pulse Rate [ 96 H Right From Monitor] Respiratory 24 25 H Rate Blood Pressure 114/66 114/66 111/63 O2 Sat by Pulse 98 100 Oximetry 11/14/17 11/14/17 11/14/17 00:15 00:30 00:45 Temperature Pulse Rate 100 H 96 H 95 H Pulse Rate [ Right From Monitor] Respiratory 25 H 27 H 26 H Rate Blood Pressure 108/62 108/62 107/61 O2 Sat by Pulse 99 100 Oximetry 11/14/17 11/14/17 11/14/17 01:00 01:15 01:30 Temperature Pulse Rate 96 H 101 H 100 H Pulse Rate [ Right From Monitor] Respiratory 25 H 22 22 Rate Blood Pressure 104/61 113/67 104/63 O2 Sat by Pulse 97 Oximetry 11/14/17 11/14/17 11/14/17 01:45 02:00 02:15 Temperature Pulse Rate 100 H 91 H 96 H Pulse Rate [ Right From Monitor] Respiratory 14 21 16 Rate Blood Pressure 106/66 115/62 100/59 O2 Sat by Pulse 98 97 Oximetry 11/14/17 11/14/17 11/14/17 02:30 02:44 02:45 Temperature 98.7 F Pulse Rate 82 95 H Pulse Rate [ Right From Monitor] Respiratory 15 32 H Rate Blood Pressure 105/53 109/59 O2 Sat by Pulse 98 Oximetry 11/14/17 11/14/17 11/14/17 03:00 03:16 03:30 Temperature Pulse Rate 100 H 104 H 92 H Pulse Rate [ Right From Monitor] Respiratory 19 16 20 Rate Blood Pressure 109/59 100/59 98/58 O2 Sat by Pulse 98 97 Oximetry 11/14/17 11/14/17 11/14/17 03:45 04:00 04:15 Temperature Pulse Rate 94 H 88 101 H Pulse Rate [ 100 H Right From Monitor] Respiratory 22 28 H 20 Rate Blood Pressure 97/63 107/62 112/64 O2 Sat by Pulse 98 Oximetry 11/14/17 11/14/17 11/14/17 04:19 04:30 04:45 Temperature Pulse Rate 103 H 102 H 89 Pulse Rate [ Right From Monitor] Respiratory 26 H 29 H Rate Blood Pressure 112/62 100/58 O2 Sat by Pulse 98 96 100 Oximetry 11/14/17 11/14/17 11/14/17 05:00 05:15 05:30 Temperature Pulse Rate 92 H 91 H 91 H Pulse Rate [ Right From Monitor] Respiratory 23 23 19 Rate Blood Pressure 101/61 106/62 107/60 O2 Sat by Pulse 98 98 Oximetry 11/14/17 11/14/17 11/14/17 05:45 06:00 06:15 Temperature Pulse Rate 91 H 102 H 90 Pulse Rate [ Right From Monitor] Respiratory 27 H 19 26 H Rate Blood Pressure 106/63 116/62 103/61 O2 Sat by Pulse 95 100 99 Oximetry 11/14/17 11/14/17 11/14/17 06:30 06:45 07:00 Temperature Pulse Rate 85 86 89 Pulse Rate [ Right From Monitor] Respiratory 24 25 H 20 Rate Blood Pressure 109/64 106/62 110/63 O2 Sat by Pulse 100 100 Oximetry 11/14/17 11/14/17 11/14/17 07:15 07:30 07:45 Temperature Pulse Rate 95 H 85 85 Pulse Rate [ Right From Monitor] Respiratory 23 20 17 Rate Blood Pressure 107/67 113/64 108/61 O2 Sat by Pulse 99 100 97 Oximetry 11/14/17 11/14/17 11/14/17 07:52 08:00 08:11 Temperature 100.3 F H Pulse Rate 89 102 H Pulse Rate [ 92 H Right From Monitor] Respiratory 21 Rate Blood Pressure 105/64 113/68 O2 Sat by Pulse 100 100 Oximetry 11/14/17 11/14/17 11/14/17 08:15 08:30 08:45 Temperature Pulse Rate 97 H 101 H 101 H Pulse Rate [ Right From Monitor] Respiratory 25 H 24 18 Rate Blood Pressure 113/68 114/69 118/70 O2 Sat by Pulse 98 97 97 Oximetry 11/14/17 09:00 Temperature Pulse Rate 102 H Pulse Rate [ Right From Monitor] Respiratory 19 Rate Blood Pressure 106/64 O2 Sat by Pulse 96 Oximetry General appearance: Present: no acute distress, other (sedated) - EENT Eyes: PERRL ENT: poor dentition, other (ET in place) Ears: bilateral: other (pinna w/o break down) - Neck Neck: supple - Respiratory Respiratory effort: normal, other (on vent) Respiratory: bilateral: CTA - Breasts Breasts: deferred - Cardiovascular Heart Sounds: Present: S1 & S2 Extremities: pulses intact, normal color - Gastrointestinal General gastrointestinal: Present: soft, non-tender, other (NGT in place ) Rectal Exam: deferred - Genitourinary Male genitourinary: deferred - Integumentary Integumentary: clear, warm - Musculoskeletal Musculoskeletal: other (sedated) - Neurologic Neurologic: other (sedated) - Psychiatric Psychiatric: other (desated) - Labs CBC & Chem 7: 11/13/17 04:50 11/13/17 04:50 Labs: Abnormal lab results 11/14/17 Range/Units 04:21 POC ABG pCO2 29.8 L (35-45)
[2017-11-14] MEDS: SODIUM CHLORIDE FLUSH SYRINGE 10 ML IV SCH ×2 (11:29→22:01)
--- NOTE | 2017-11-14 11:41 | Progress Note ---
Assessment and Plan Acute respiratory failure. multifactorial, sepsis, aspiration pneumonia, mucous plugging Sepsis,due to the above. On antibiotics, so they were still noted AMS Stroke Acute kidney injury. Worsening creatinine Recommendations Keep MAP > 65 Will increase IV fluids, strict stool sample 45% half saline and monitor kidney status If no improvement, proceed with nephrology consult ID consult Continue antibiotics. If persistent fever, consider adding vancomycin also Monitor UO, keep > 30 cc/ hr Serial lactate levels improving f/u hospital ventilator bundle, Mechanical ventilation support, adjust FiO2 with goal of maintaining oximetry at or above 92% Titrate PEEP up to maintain oximetry of the above oximetry level Keep PIP < 30 Sedation as needed for patient comfort, adjust to RASS -1 to - 3 Maintain extubation precautions Daily morning sedation vacation and initiate SBT if deemed appropriate Cardiology follow-up DVT prophylaxis PPI prophylaxis Will need tracheotomy , surgery consulted No family available for case discussion. Critical care time was 31 minutes of [id number] evaluation and coordination of care Subjective Date of service: 11/14/17 Principal diagnosis: Ac resp failure, aspiration pneumonia/HAP,sepsis,stroke Interval history: Intubated Objective Vital Signs - 12hr 11/13/17 11/13/17 11/14/17 23:44 23:45 00:00 Temperature Pulse Rate 95 H 97 H 94 H Pulse Rate [ 96 H Right From Monitor] Respiratory 24 25 H Rate Blood Pressure 114/66 114/66 111/63 O2 Sat by Pulse 98 100 Oximetry 11/14/17 11/14/17 11/14/17 00:15 00:30 00:45 Temperature Pulse Rate 100 H 96 H 95 H Pulse Rate [ Right From Monitor] Respiratory 25 H 27 H 26 H Rate Blood Pressure 108/62 108/62 107/61 O2 Sat by Pulse 99 100 Oximetry 11/14/17 11/14/17 11/14/17 01:00 01:15 01:30 Temperature Pulse Rate 96 H 101 H 100 H Pulse Rate [ Right From Monitor] Respiratory 25 H 22 22 Rate Blood Pressure 104/61 113/67 104/63 O2 Sat by Pulse 97 Oximetry 11/14/17 11/14/17 11/14/17 01:45 02:00 02:15 Temperature Pulse Rate 100 H 91 H 96 H Pulse Rate [ Right From Monitor] Respiratory 14 21 16 Rate Blood Pressure 106/66 115/62 100/59 O2 Sat by Pulse 98 97 Oximetry 11/14/17 11/14/17 11/14/17 02:30 02:44 02:45 Temperature 98.7 F Pulse Rate 82 95 H Pulse Rate [ Right From Monitor] Respiratory 15 32 H Rate Blood Pressure 105/53 109/59 O2 Sat by Pulse 98 Oximetry 11/14/17 11/14/17 11/14/17 03:00 03:16 03:30 Temperature Pulse Rate 100 H 104 H 92 H Pulse Rate [ Right From Monitor] Respiratory 19 16 20 Rate Blood Pressure 109/59 100/59 98/58 O2 Sat by Pulse 98 97 Oximetry 11/14/17 11/14/17 11/14/17 03:45 04:00 04:15 Temperature Pulse Rate 94 H 88 101 H Pulse Rate [ 100 H Right From Monitor] Respiratory 22 28 H 20 Rate Blood Pressure 97/63 107/62 112/64 O2 Sat by Pulse 98 Oximetry 11/14/17 11/14/17 11/14/17 04:19 04:30 04:45 Temperature Pulse Rate 103 H 102 H 89 Pulse Rate [ Right From Monitor] Respiratory 26 H 29 H Rate Blood Pressure 112/62 100/58 O2 Sat by Pulse 98 96 100 Oximetry 11/14/17 11/14/17 11/14/17 05:00 05:15 05:30 Temperature Pulse Rate 92 H 91 H 91 H Pulse Rate [ Right From Monitor] Respiratory 23 23 19 Rate Blood Pressure 101/61 106/62 107/60 O2 Sat by Pulse 98 98 Oximetry 11/14/17 11/14/17 11/14/17 05:45 06:00 06:15 Temperature Pulse Rate 91 H 102 H 90 Pulse Rate [ Right From Monitor] Respiratory 27 H 19 26 H Rate Blood Pressure 106/63 116/62 103/61 O2 Sat by Pulse 95 100 99 Oximetry 11/14/17 11/14/17 11/14/17 06:30 06:45 07:00 Temperature Pulse Rate 85 86 89 Pulse Rate [ Right From Monitor] Respiratory 24 25 H 20 Rate Blood Pressure 109/64 106/62 110/63 O2 Sat by Pulse 100 100 Oximetry 11/14/17 11/14/17 11/14/17 07:15 07:30 07:45 Temperature Pulse Rate 95 H 85 85 Pulse Rate [ Right From Monitor] Respiratory 23 20 17 Rate Blood Pressure 107/67 113/64 108/61 O2 Sat by Pulse 99 100 97 Oximetry 11/14/17 11/14/17 11/14/17 07:52 08:00 08:11 Temperature 100.3 F H Pulse Rate 89 102 H Pulse Rate [ 92 H Right From Monitor] Respiratory 21 Rate Blood Pressure 105/64 113/68 O2 Sat by Pulse 100 100 Oximetry 11/14/17 11/14/17 11/14/17 08:15 08:30 08:45 Temperature Pulse Rate 97 H 101 H 101 H Pulse Rate [ Right From Monitor] Respiratory 25 H 24 18 Rate Blood Pressure 113/68 114/69 118/70 O2 Sat by Pulse 98 97 97 Oximetry 11/14/17 09:00 Temperature Pulse Rate 102 H Pulse Rate [ Right From Monitor] Respiratory 19 Rate Blood Pressure 106/64 O2 Sat by Pulse 96 Oximetry Constitutional: lethargic, other (intubated) Eyes: non-icteric ENT: oropharynx moist, other (ETT at 24 cm) Neck: supple, no JVD Ascultation: Bilateral: rhonchi (bilateral LT >>RT) Cardiovascular: regular rate and rhythm, other (tachycardic) Gastrointestinal: normoactive bowel sounds, non-distended Integumentary: normal Extremities: no cyanosis, no edema, other (RT femoral line in place) Neurologic: unable to assess (on propofol) CBC and BMP: 11/13/17 04:50 11/13/17 04:50 ABG, PT/INR, D-dimer: ABG POC ABG pH 7.420 (7.35-7.45) 11/14/17 04:21 POC ABG pCO2 29.8 (35-45) L 11/14/17 04:21 POC ABG pO2 102 (80-105) 11/14/17 04:21 POC ABG HCO3 19.3 11/14/17 04:21 POC ABG Total CO2 20 11/14/17 04:21 POC ABG O2 Sat 98 11/14/17 04:21 PT/INR, D-dimer PT 16.7 Sec. (12.2-14.9) H 11/12/17 00:23 INR 1.28 (0.87-1.13) H 11/12/17 00:23 Abnormal lab findings: Abnormal Labs 11/11/17 11/11/17 11/11/17 23:18 23:20 23:20 WBC RBC Hgb 10.4 L Hct 32.6 L D MCH 27 L MCHC RDW 17.4 H Plt Count 105 L Lymph % (Auto) [place] % (Auto) Lymph # [place] # Seg Neutrophils % Lymphocytes % (Manual) 8.0 L Nucleated RBC % 1.0 H Seg Neutrophils # Lymphocytes # (Manual) 0.7 L PT INR POC ABG pH 7.550 H POC ABG pCO2 31.6 L POC ABG pO2 Sodium 146 H Potassium Chloride Carbon Dioxide BUN 26 H Creatinine 1.7 H D Glucose 133 H Lactic Acid Calcium Troponin T 0.117 H* C-Reactive Protein Albumin 2.5 L LDL Cholesterol Direct 42 L HDL Cholesterol 24 L 11/11/17 11/12/17 11/12/17 23:20 00:23 00:23 WBC RBC Hgb Hct MCH MCHC RDW Plt Count Lymph % (Auto) [place] % (Auto) Lymph # [place] # Seg Neutrophils % Lymphocytes % (Manual) Nucleated RBC % Seg Neutrophils # Lymphocytes # (Manual) PT 16.7 H INR 1.28 H POC ABG pH POC ABG pCO2 POC ABG pO2 Sodium Potassium Chloride Carbon Dioxide BUN Creatinine Glucose Lactic Acid 3.20 H* Calcium Troponin T C-Reactive Protein 25.70 H Albumin LDL Cholesterol Direct HDL Cholesterol 11/12/17 11/12/17 11/12/17 00:46 01:27 01:27 WBC RBC Hgb Hct MCH MCHC RDW Plt Count Lymph % (Auto) [place] % (Auto) Lymph # [place] # Seg Neutrophils % Lymphocytes % (Manual) Nucleated RBC % Seg Neutrophils # Lymphocytes # (Manual) PT INR POC ABG pH 7.495 H POC ABG pCO2 32.0 L POC ABG pO2 64 L Sodium Potassium Chloride Carbon Dioxide BUN Creatinine Glucose Lactic Acid 3.70 H* Calcium Troponin T 0.096 H C-Reactive Protein Albumin LDL Cholesterol Direct HDL Cholesterol 11/12/17 11/12/17 11/12/17 03:21 04:50 06:27 WBC RBC Hgb Hct MCH MCHC RDW Plt Count Lymph % (Auto) [place] % (Auto) Lymph # [place] # Seg Neutrophils % Lymphocytes % (Manual) Nucleated RBC % Seg Neutrophils # Lymphocytes # (Manual) PT INR POC ABG pH POC ABG pCO2 POC ABG pO2 109 H Sodium Potassium Chloride Carbon Dioxide BUN Creatinine Glucose Lactic Acid 3.80 H* 2.20 H* Calcium Troponin T C-Reactive Protein Albumin LDL Cholesterol Direct HDL Cholesterol 11/12/17 11/12/17 11/12/17 09:24 09:24 09:24 WBC RBC Hgb 10.4 L Hct 33.4 L MCH MCHC RDW Plt Count Lymph % (Auto) [place] % (Auto) Lymph # [place] # Seg Neutrophils % Lymphocytes % (Manual) Nucleated RBC % Seg Neutrophils # Lymphocytes # (Manual) PT INR POC ABG pH POC ABG pCO2 POC ABG pO2 Sodium Potassium Chloride Carbon Dioxide BUN Creatinine Glucose Lactic Acid 2.90 H* Calcium Troponin T 0.091 H C-Reactive Protein Albumin LDL Cholesterol Direct HDL Cholesterol 11/12/17 11/12/17 11/12/17 12:56 20:03 Unknown WBC RBC Hgb Hct MCH MCHC RDW Plt Count Lymph % (Auto) [place] % (Auto) Lymph # [place] # Seg Neutrophils % Lymphocytes % (Manual) Nucleated RBC % Seg Neutrophils # Lymphocytes # (Manual) PT INR POC ABG pH POC ABG pCO2 POC ABG pO2 Sodium Potassium Chloride Carbon Dioxide BUN Creatinine Glucose Lactic Acid 3.60 H* Calcium Troponin T 0.102 H* 0.156 H* D C-Reactive Protein Albumin LDL Cholesterol Direct HDL Cholesterol 11/12/17 11/13/17 11/13/17 Unknown 04:50 04:50 WBC 12.2 H RBC 3.51 L Hgb 9.3 L Hct 30.1 L MCH 26 L MCHC 31 L RDW 18.0 H Plt Count 128 L Lymph % (Auto) 8.6 L [place] % (Auto) 11.1 H Lymph # 1.1 L [place] # 1.4 H Seg Neutrophils % 80.1 H Lymphocytes % (Manual) Nucleated RBC % Seg Neutrophils # 9.8 H Lymphocytes # (Manual) PT INR POC ABG pH POC ABG pCO2 POC ABG pO2 Sodium 149 H Potassium 5.1 H Chloride 114.4 H Carbon Dioxide 18 L BUN 52 H Creatinine 3.3 H D Glucose 129 H Lactic Acid Calcium 7.9 L Troponin T 0.098 H C-Reactive Protein Albumin LDL Cholesterol Direct HDL Cholesterol 11/13/17 11/13/17 11/14/17 04:51 09:34 04:21 WBC RBC Hgb Hct MCH MCHC RDW Plt Count Lymph % (Auto) [place] % (Auto) Lymph # [place] # Seg Neutrophils % Lymphocytes % (Manual) Nucleated RBC % Seg Neutrophils # Lymphocytes # (Manual) PT INR POC ABG pH POC ABG pCO2 30.1 L 29.8 L POC ABG pO2 135 H Sodium Potassium Chloride Carbon Dioxide BUN Creatinine Glucose Lactic Acid 2.10 H* Calcium Troponin T C-Reactive Protein Albumin LDL Cholesterol Direct HDL Cholesterol
[2017-11-14] MEDS: PROTONIX (nf) FEEDTUBE SCH ×2 (15:52→22:02)
[2017-11-14] MEDS: NACL 0.45% 1000 ML 1,000 ML IV SCH (16:20)
--- NOTE | 2017-11-15 04:43 | XRay Report ---
FINAL REPORT PROCEDURE: XR CHEST 1V AP TECHNIQUE: Chest radiograph anteroposterior view. CPT 99463 HISTORY: pneumonia, respiratory failure COMPARISON: No prior studies are available for comparison. FINDINGS: Heart: Heart is enlarged Mediastinum/Vessels: Normal. Lungs/Pleural space: There are bibasilar infiltrates greater on the right. There is a small left pleural effusion. There is no pneumothorax.. Bony thorax: No acute osseous abnormality. Life support devices: Endotracheal tube is in the trachea. NG tube is in the stomach.. IMPRESSION: The heart is enlarged. There are bibasilar infiltrates greater on the right. There is a small left pleural effusion. There is no pneumothorax.. Endotracheal tube is in the trachea. NG tube is in the stomach..
[2017-11-15] MEDS: DIPRIVAN 10 MG/ML 1,000 MG/100 ML BOTTLE IV SCH ×2 (06:08→19:03)
[2017-11-15] MEDS: ZOSYN/NS 2.25 GM/50ML 2.25 GM/50 ML BAG IV SCH ×3 (06:08→22:17)
[2017-11-15] MEDS: NACL 0.45% 1000 ML 1,000 ML IV SCH ×2 (06:09→22:16)
--- NOTE | 2017-11-15 09:30 | Progress Note ---
Assessment and Plan Assessment and plan: Mr. Echavarria is a 67 yo man with a history of hypertension, CVA, OA and CAD who was admitted last month for large cva, causing Left hemiplegia, aphasia therefore peg was placed, dysphagia, and poor ability to clear his secretions, he was on abx for tracheobronchitis, he was dc to rehab, he was sent back to hospital for acute respiratory failure and and intubated Acute respiratory failure on MV; continue vent; it was conveyed to his daughter that he is not able to protect his airway well, therefore planned for trach, his daughter is still resistant to it -REcent CVA; continue secondary stroke ppx PNA/tracheobronchitis; cont abx, continue pulmonary toilet -Right Carotid artery stenosis and thrombosis post CEA surgery septic shock; weaned off pressors -Dyslipidemia; statin -Hypernatremia, continue free water and D5w -Acute metabolic encephalopathy: correct sodium level very carefully Dysphagia with aspiration; sp peg tube Coffee-ground material from peg tube; continue suction, keeping npo, per gi his presentation is not cw gi bleed Daughter wants to continue aggressive management, she believes he will recover, she is not interested in DNR or Hospice at this time CCT 33 minutes History Interval history: has now been weaned off pressors -continues to have coffee grounds suctioning from peg tube no seizures, Hospitalist Physical - Physical exam Narrative exam: General appearance: Present: mild distress, other (intubated on the vent) - EENT Eyes: Present: PERRL - Neck Neck: Present: supple - Respiratory Respiratory effort: labored Respiratory: bilateral: rales - Cardiovascular Rhythm: regular Heart Sounds: Present: S1 & S2 - Extremities Extremities: no ischemia - Abdominal General gastrointestinal: soft, non-tender - Integumentary Integumentary: Present: clear, warm, dry - Psychiatric Psychiatric: other (intubated) - Neurologic Neurologic: focal deficits (right hemiplegia) - Constitutional Vitals: Temp Pulse Resp BP Pulse Ox 99.0 F 99 H 21 112/69 99 11/15/17 08:00 11/15/17 08:00 11/15/17 08:00 11/15/17 08:00 11/15/17 08:00 General appearance: Present: no acute distress, other (sedated) Results - Labs CBC & Chem 7: 11/17/17 10:00 11/17/17 04:07 Labs: Laboratory Last Values WBC 12.2 K/mm3 (4.5-11.0) H 11/13/17 04:50 RBC 3.51 M/mm3 (3.65-5.03) L 11/13/17 04:50 Hgb 9.3 gm/dl (11.8-15.2) L 11/13/17 04:50 Hct 30.1 % (35.5-45.6) L 11/13/17 04:50 MCV 86 fl (84-94) 11/13/17 04:50 MCH 26 pg (28-32) L 11/13/17 04:50 MCHC 31 % (32-34) L 11/13/17 04:50 RDW 18.0 % (13.2-15.2) H 11/13/17 04:50 Plt Count 128 K/mm3 (140-440) L 11/13/17 04:50 Lymph % (Auto) 8.6 % (13.4-35.0) L 11/13/17 04:50 Phillips % (Auto) 11.1 % (0.0-7.3) H 11/13/17 04:50 Eos % (Auto) 0.0 % (0.0-4.3) 11/13/17 04:50 Baso % (Auto) 0.2 % (0.0-1.8) 11/13/17 04:50 Lymph # 1.1 K/mm3 (1.2-5.4) L 11/13/17 04:50 Phillips # 1.4 K/mm3 (0.0-0.8) H 11/13/17 04:50 Eos # 0.0 K/mm3 (0.0-0.4) 11/13/17 04:50 Baso # 0.0 K/mm3 (0.0-0.1) 11/13/17 04:50 Add Manual Diff Complete 11/11/17 23:20 Total Counted 100 11/11/17 23:20 Seg Neutrophils % 80.1 % (40.0-70.0) H 11/13/17 04:50 Seg Neuts % (Manual) 58.0 % (40.0-70.0) 11/11/17 23:20 Band Neutrophils % 27.0 % 11/11/17 23:20 Lymphocytes % (Manual) 8.0 % (13.4-35.0) L 11/11/17 23:20 Reactive Lymphs % (Man) 0 % 11/11/17 23:20 Monocytes % (Manual) 7.0 % (0.0-7.3) 11/11/17 23:20 Eosinophils % (Manual) 0 % (0.0-4.3) 11/11/17 23:20 Basophils % (Manual) 0 % (0.0-1.8) 11/11/17 23:20 Metamyelocytes % 0 % 11/11/17 23:20 Myelocytes % 0 % 11/11/17 23:20 Promyelocytes % 0 % 11/11/17 23:20 Blast Cells % 0 % 11/11/17 23:20 Nucleated RBC % 1.0 % (0.0-0.9) H 11/11/17 23:20 Seg Neutrophils # 9.8 K/mm3 (1.8-7.7) H 11/13/17 04:50 Seg Neutrophils # Man 5.0 K/mm3 (1.8-7.7) 11/11/17 23:20 Band Neutrophils # 2.3 K/mm3 11/11/17 23:20 Lymphocytes # (Manual) 0.7 K/mm3 (1.2-5.4) L 11/11/17 23:20 Abs React Lymphs (Man) 0.0 K/mm3 11/11/17 23:20 Monocytes # (Manual) 0.6 K/mm3 (0.0-0.8) 11/11/17 23:20 Eosinophils # (Manual) 0.0 K/mm3 (0.0-0.4) 11/11/17 23:20 Basophils # (Manual) 0.0 K/mm3 (0.0-0.1) 11/11/17 23:20 Metamyelocytes # 0.0 K/mm3 11/11/17 23:20 Myelocytes # 0.0 K/mm3 11/11/17 23:20 Promyelocytes # 0.0 K/mm3 11/11/17 23:20 Blast Cells # 0.0 K/mm3 11/11/17 23:20 WBC Morphology Not Reportable 11/11/17 23:20 Hypersegmented Neuts Not Reportable 11/11/17 23:20 Hyposegmented Neuts Not Reportable 11/11/17 23:20 Hypogranular Neuts Not Reportable 11/11/17 23:20 Smudge Cells Not Reportable 11/11/17 23:20 Toxic Granulation Not Reportable 11/11/17 23:20 Toxic Vacuolation Not Reportable 11/11/17 23:20 Dohle Bodies Not Reportable 11/11/17 23:20 Pelger-Huet Anomaly Not Reportable 11/11/17 23:20 Veangelina Rods Not Reportable 11/11/17 23:20 Platelet Estimate Consistent w auto 11/11/17 23:20 Clumped Platelets Not Reportable 11/11/17 23:20 Plt Clumps, EDTA Not Reportable 11/11/17 23:20 Large Platelets Not Reportable 11/11/17 23:20 Giant Platelets Not Reportable 11/11/17 23:20 Platelet Satelliting Not Reportable 11/11/17 23:20 Plt Morphology Comment Not Reportable 11/11/17 23:20 RBC Morphology Not Reportable 11/11/17 23:20 Dimorphic RBCs Not Reportable 11/11/17 23:20 Polychromasia Not Reportable 11/11/17 23:20 Hypochromasia Not Reportable 11/11/17 23:20 Poikilocytosis Not Reportable 11/11/17 23:20 Anisocytosis 1+ 11/11/17 23:20 Microcytosis Not Reportable 11/11/17 23:20 Macrocytosis Not Reportable 11/11/17 23:20 Spherocytes Not Reportable 11/11/17 23:20 Pappenheimer Bodies Not Reportable 11/11/17 23:20 Sickle Cells Not Reportable 11/11/17 23:20 Target Cells Not Reportable 11/11/17 23:20 Tear Drop Cells Not Reportable 11/11/17 23:20 Ovalocytes 1+ 11/11/17 23:20 Helmet Cells Not Reportable 11/11/17 23:20 [place] Bodies Not Reportable 11/11/17 23:20 [place] Rings Not Reportable 11/11/17 23:20 Lucretia Cells Not Reportable 11/11/17 23:20 Bite Cells Not Reportable 11/11/17 23:20 Crenated Cell Not Reportable 11/11/17 23:20 Elliptocytes Not Reportable 11/11/17 23:20 Acanthocytes (Spur) Not Reportable 11/11/17 23:20 Rouleaux Not Reportable 11/11/17 23:20 Hemoglobin C Crystals Not Reportable 11/11/17 23:20 Schistocytes Not Reportable 11/11/17 23:20 Malaria parasites Not Reportable 11/11/17 23:20 [place] Bodies Not Reportable 11/11/17 23:20 Hem Pathologist Commnt No 11/11/17 23:20 PT 16.7 Sec. (12.2-14.9) H 11/12/17 00:23 INR 1.28 (0.87-1.13) H 11/12/17 00:23 APTT 31.7 Sec. (24.2-36.6) 11/12/17 00:23 POC ABG pH 7.402 (7.35-7.45) 11/15/17 04:52 POC ABG pCO2 29.5 (35-45) L 11/15/17 04:52 POC ABG pO2 115 (80-105) H 11/15/17 04:52 POC ABG HCO3 18.4 11/15/17 04:52 POC ABG Total CO2 19 11/15/17 04:52 POC ABG O2 Sat 99 11/15/17 04:52 POC ABG Base Excess -6 11/15/17 04:52 FiO2 30 % 11/15/17 04:52 Sodium 149 mmol/L (137-145) H 11/13/17 04:50 Potassium 5.1 mmol/L (3.6-5.0) H 11/13/17 04:50 Chloride 114.4 mmol/L (98-107) H 11/13/17 04:50 Carbon Dioxide 18 mmol/L (22-30) L 11/13/17 04:50 Anion Gap 22 mmol/L 11/13/17 04:50 BUN 52 mg/dL (9-20) H 11/13/17 04:50 Creatinine 3.3 mg/dL (0.8-1.5) H D 11/13/17 04:50 Estimated GFR 23 ml/min 11/13/17 04:50 BUN/Creatinine Ratio 16 % 11/13/17 04:50 Glucose 129 mg/dL (75-100) H 11/13/17 04:50 Lactic Acid 1.80 mmol/L (0.7-2.0) 11/13/17 14:21 Calcium 7.9 mg/dL (8.4-10.2) L 11/13/17 04:50 Total Bilirubin 1.10 mg/dL (0.1-1.2) 11/11/17 23:20 AST 27 units/L (5-40) 11/11/17 23:20 ALT 40 units/L (7-56) 11/11/17 23:20 Alkaline Phosphatase 90 units/L (35-129) 11/11/17 23:20 Total Creatine Kinase 84 units/L (55-170) 11/12/17 20:03 CK-MB (CK-2) < 1.0 ng/mL (0.0-4.0) 11/12/17 20:03 CK-MB (CK-2) Rel Index 1.1 (0-4) 11/12/17 20:03 Troponin T 0.098 ng/mL (0.00-0.029) H 11/12/17 Unknown C-Reactive Protein 25.70 mg/dL (0.00-1.30) H 11/11/17 23:20 NT-Pro-B Natriuret Pep 792.4 pg/mL (0-900) 11/11/17 23:20 Total Protein 6.5 g/dL (6.3-8.2) 11/11/17 23:20 Albumin 2.5 g/dL (3.9-5) L 11/11/17 23:20 Albumin/Globulin Ratio 0.6 % 11/11/17 23:20 Triglycerides 86 mg/dL (2-149) 11/11/17 23:20 Cholesterol 82 mg/dL (50-199) 11/11/17 23:20 LDL Cholesterol Direct 42 mg/dL (50-130) L 11/11/17 23:20 HDL Cholesterol 24 mg/dL (40-59) L 11/11/17 23:20 Cholesterol/HDL Ratio 3.41 % 11/11/17 23:20 Lipase 30 units/L (13-60) 11/11/17 23:20 Urine Color Nicole (Yellow) 11/11/17 23:09 Urine Turbidity Cloudy (Clear) 11/11/17 23:09 Urine pH 5.0 (5.0-7.0) 11/11/17 23:09 Ur Specific Nash 1.025 (1.003-1.030) 11/11/17 23:09 Urine Protein 100 mg/dl mg/dL (Negative) 11/11/17 23:09 Urine Glucose (UA) 50 mg/dL (Negative) 11/11/17 23:09 Urine Ketones Neg mg/dL (Negative) 11/11/17 23:09 Urine Blood Neg (Negative) 11/11/17 23:09 Urine Nitrite Neg (Negative) 11/11/17 23:09 Urine Bilirubin Neg (Negative) 11/11/17 23:09 Urine Urobilinogen 4.0 mg/dL (<2.0) 11/11/17 23:09 Ur Leukocyte Esterase Neg (Negative) 11/11/17 23:09 Urine WBC (Auto) 5.0 /HPF (0.0-6.0) 11/11/17 23:09 Urine RBC (Auto) 4.0 /HPF (0.0-6.0) 11/11/17 23:09 Urine Bacteria (Auto) 3+ /HPF (Negative) 11/11/17 23:09 Amorphous Crystals 3+ 11/11/17 23:09 Hyaline Casts 76 /LPF 11/11/17 23:09 Urine Mucus 2+ /HPF 11/11/17 23:09
[2017-11-15] MEDS: SODIUM CHLORIDE FLUSH SYRINGE 10 ML IV SCH ×2 (10:02→22:17)
--- NOTE | 2017-11-15 13:48 | Consultation ---
History of Present Illness - Reason for Consult Consult date: 11/15/17 sepsis Requesting physician: ISHAAN DENNIS - History of Present Illness 67 y/o male with history of CVA status post right internal carotid bypass with interposition, placement of recent PEG tube with prolonged recent admission from 10/04-/11/10/17; readmitted from assisted on 11/11/17 due to increasing shortness of breath, AMS and hypotension. Patient is unable to provide a history. Upon admission, temp 102.5, HR 138, R 32, BP 126/86. WBC 8.7. Hg 10.4. Plat 105. Bands 27. Creat 1.7. Lactate 3.2. CRP 25. CXR showed increased perihilar alveolar density >RLL than LLL. CTA showed complete atelectasis of the LLL with mediatinal shift to the left due to blockage of the left main bronchus by ETT. Microbiology: Blood cultures: 10/24 MASS SPECTROSCOPIST 10/29 neg 11/10 neg 11/12 ngtd Urine cultures: Respiratory cultures: 10/10 Klebsiella 11/12 usual resp estela Current Antimicrobials: Zosyn Levaquin Previous Antimicrobials: Past History Past Medical History: arthritis, CAD, hypertension, stroke Past Surgical History: hernia repair, Other (CEA, PEG) Social history: other (assisted resident) Family history: hypertension Medications and Allergies Allergies Allergy/AdvReac Type Severity Reaction Status Date / Time adhesive tape AdvReac SKIN TEAR Verified 10/09/17 13:53 Home Medications Medication Instructions Recorded Confirmed Last Taken Type Aspirin [Adult Low Dose Aspirin EC] 81 mg PO DAILY 05/18/15 11/13/17 09/15/16 History Cetirizine HCl [Allergy Relief] 10 mg PO DAILY 09/15/16 11/13/17 09/15/16 History Clopidogrel [Plavix] 75 mg PO QDAY 09/15/16 11/13/17 09/15/16 History Meloxicam [Mobic] 15 mg PO DAILY 09/15/16 11/13/17 09/15/16 History Pantoprazole [Protonix TAB] 40 mg PO QDAY 09/15/16 11/13/17 09/15/16 History amLODIPine [Norvasc] 10 mg PO DAILY 09/15/16 11/13/17 09/15/16 History Metoprolol [Lopressor TAB] 25 mg PO BID #60 tablet 01/23/17 11/13/17 Unknown Rx Active Meds: Active Medications Acetaminophen (Tylenol) 650 mg VT Q4H PRN PRN Reason: Pain MILD(1-3)/Fever >100.5/CABELLO Fentanyl Citrate (Fentanyl Drip Premix) 2,000 mcg in 100 mls @ 3.969 mls/hr IV TITR OSIRIS; Protocol Last Titration: 11/12/17 04:07 Dose: 5 mcg/kg/hr, 19.845 mls/hr Propofol (Diprivan 10 Mg/Ml) 1,000 mg in 100 mls @ 2.381 mls/hr IV TITR OSIRIS; Protocol Last Admin: 11/15/17 06:08 Dose: 20 mcg/kg/min, 9.525 mls/hr Norepinephrine (Levophed Drip 4 Mg/Ns 250 Ml) 4 mg in 250 mls @ 7.5 mls/hr IV TITR OSIRIS; Protocol Last Titration: 11/13/17 14:40 Dose: Infused Sodium Chloride (Nacl 0.9% 1000 Ml) 1,000 mls @ 150 mls/hr IV DIRECT OSIRIS Last Admin: 11/14/17 07:11 Dose: 150 mls/hr Piperacillin Sod/Tazobactam Sod (Zosyn/Ns 2.25 Gm/50ml) 2.25 gm in 50 mls @ 100 mls/hr IV Q8HR OSIRIS Last Admin: 11/15/17 06:08 Dose: 100 mls/hr Levofloxacin/Dextrose (Levaquin 750mg/150ml) 750 mg in 150 mls @ 100 mls/hr IV Q48H OSIRIS; Protocol Last Admin: 11/14/17 07:28 Dose: 100 mls/hr Sodium Chloride (Nacl 0.45% 1000 Ml) 1,000 mls @ 75 mls/hr IV DIRECT OSIRIS Last Admin: 11/15/17 06:09 Dose: 75 mls/hr Ondansetron HCl (Zofran) 4 mg IV Q8H PRN PRN Reason: Nausea And Vomiting Pantoprazole (Protonix) 40 mg FEEDTUBE BID OSIRIS Last Admin: 11/14/17 22:02 Dose: Not Given Sodium Chloride (Sodium Chloride Flush Syringe 10 Ml) 10 ml IV BID OSIRIS Last Admin: 11/14/17 22:01 Dose: 10 ml Sodium Chloride (Sodium Chloride Flush Syringe 10 Ml) 10 ml IV PRN PRN PRN Reason: LINE FLUSH Physical Examination - Physical Exam Narrative exam: General appearance: sedated on the vent non verbal on CPAP Eyes: anicteric sclerae, moist conjunctivae; no lid-lag; PERRLA HENT: Atraumatic; oropharynx+ETT +OGT Neck: Trachea midline; supple, no thyromegaly or lymphadenopathy Lungs: scattered rhonchi CV: tachy Abdomen: Soft, distended +PEG Extremities: winnie arms/legs edema Skin: Normal temperature, turgor and texture; no rash, ulcers or subcutaneous nodules Psych: sedated Neuro: sedated Lines: condom cath - Constitutional Vitals: Vital Signs Temp Pulse Resp BP Pulse Ox 99.0 F 93 H 22 115/67 98 11/15/17 08:00 11/15/17 13:00 11/15/17 13:00 11/15/17 13:00 11/15/17 11:36 Temperature -Last 24 Hours Temperature 99.0 F Temperature 99.0 F Temperature 98.7 F Temperature 98.9 F Results - Labs CBC & Chem 7: 11/13/17 04:50 11/13/17 04:50 Labs: Abnormal lab results 11/15/17 Range/Units 04:52 POC ABG pCO2 29.5 L (35-45) POC ABG pO2 115 H (80-105) Assessment and Plan Assessment: 1) Sepsis with transient septic shock: Present on admission, manifested by fever , tachycardia, hypotension, bandemia, increased lactate. Etiology most likely VAP/post-obtructive pneumonia. CRP=25 2) VAP vs post-obstructive pneumonia (mucous mugging) -initial sputum 10/10 Klebsiella -sputum 11/12 usual respiratory estela -CXR showed increased perihilar alveolar density >RLL than LLL. -CTA showed complete atelectasis of the LLL with mediatinal shift to the left due to blockage of the left main bronchus by ETT. 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, placement of recent PEG tube with prolonged recent admission from 10/04-/11/10/17 4) Acute encephalopathy 5) Acute Respiratory failure 6) DARYA Zosyn Levaquin Plan: -follow-up blood cultures -stop levaquin -continue zosyn -needs trach -monitor fever and leukocytosis (off pressors) Thank you for your consultation, will follow up with you. Olga Mercedes MD Infectious Diseases Specialist [facility] ([facility] M [phone] O [phone]
--- NOTE | 2017-11-15 13:57 | Progress Note ---
Assessment and Plan - Patient Problems (1) Ventilator dependence Current Visit: Yes Status: Acute Plan to address problem: ween as tolerated (2) Acute respiratory failure with hypoxemia Current Visit: Yes Status: Acute Plan to address problem: Titrate O2 to keep sat.+92% (3) Respiratory failure Current Visit: No Status: Acute Plan to address problem: tracheotomy next week Subjective Date of service: 11/15/17 Principal diagnosis: Ac resp failure, aspiration pneumonia/HAP,sepsis,stroke Interval history: Pt. resting comfortably, sedated. Objective - Constitutional Vitals: Vital Signs - 12hr 11/15/17 11/15/17 11/15/17 02:00 03:00 04:00 Temperature 99.0 F Pulse Rate 83 98 H 91 H Pulse Rate [ Right From Monitor] Respiratory 19 25 H 27 H Rate Blood Pressure 117/69 128/74 109/63 O2 Sat by Pulse 99 98 97 Oximetry 11/15/17 11/15/17 11/15/17 05:00 06:00 07:00 Temperature Pulse Rate 85 80 83 Pulse Rate [ Right From Monitor] Respiratory 17 20 20 Rate Blood Pressure 101/62 107/63 104/61 O2 Sat by Pulse 99 100 Oximetry 11/15/17 11/15/17 11/15/17 07:49 07:53 08:00 Temperature 99.0 F Pulse Rate 99 H 100 H 98 H Pulse Rate [ 99 H Right From Monitor] Respiratory 31 H 19 Rate Blood Pressure 113/68 113/68 112/69 O2 Sat by Pulse 99 98 96 Oximetry 11/15/17 11/15/17 11/15/17 09:00 10:00 11:00 Temperature Pulse Rate 86 100 H 90 Pulse Rate [ Right From Monitor] Respiratory 22 18 19 Rate Blood Pressure 106/63 120/71 110/65 O2 Sat by Pulse 94 96 96 Oximetry 11/15/17 11/15/17 11/15/17 11:36 12:00 13:00 Temperature Pulse Rate 92 H 90 93 H Pulse Rate [ Right From Monitor] Respiratory 20 24 22 Rate Blood Pressure 105/64 109/67 115/67 O2 Sat by Pulse 98 Oximetry General appearance: Present: no acute distress - EENT Eyes: PERRL ENT: poor dentition, other (ET in place) Ears: bilateral: other (pinna w/o break down, no responce to verbal stim) - Neck Neck: supple - Respiratory Respiratory effort: other (on vent.) - Breasts Breasts: deferred - Cardiovascular Rhythm: regular Heart Sounds: Present: S1 & S2 Extremities: abnormal Extremity abnormal: edema - Gastrointestinal General gastrointestinal: Present: soft, non-tender, other (NGT in place) Rectal Exam: deferred - Genitourinary Male genitourinary: deferred - Integumentary Integumentary: clear, warm - Musculoskeletal Musculoskeletal: other (sedated) - Neurologic Neurologic: other (sedated) - Psychiatric Psychiatric: other (sedated) - Labs CBC & Chem 7: 11/13/17 04:50 11/13/17 04:50 Labs: Abnormal lab results 11/15/17 Range/Units 04:52 POC ABG pCO2 29.5 L (35-45) POC ABG pO2 115 H (80-105)
[2017-11-15] MEDS: PROTONIX (nf) FEEDTUBE SCH ×2 (14:04→22:17)
--- NOTE | 2017-11-15 14:08 | Progress Note ---
Assessment and Plan Acute respiratory failure. multifactorial, sepsis, aspiration pneumonia, mucous plugging Sepsis,due to the above. On antibiotics, ID consulted AMS. Probably combination of sepsis, metabolic encephalopathy from prior brain injury Stroke Acute kidney injury. Worsening creatinine Recommendations Monitor blood pressure and MAP BMP, monitor kidney status ID consult Continue antibiotics. No fever today. f/u hospital ventilator bundle, tolerating pressure support earlier today. However, No weaning, need tracheotomy Mechanical ventilation support, adjust FiO2 with goal of maintaining oximetry at or above 92% Sedation as needed for patient comfort Maintain extubation precautions Close monitoring for atelectasis is case bronchoscopy is needed No family available for case discussion. Critical care time was 31 minutes of [id number] evaluation and coordination of care Subjective Date of service: 11/15/17 Principal diagnosis: Ac resp failure, aspiration pneumonia/HAP,sepsis,stroke Interval history: Intubated Objective Vital Signs - 12hr 11/15/17 11/15/17 11/15/17 03:00 04:00 05:00 Temperature 99.0 F Pulse Rate 98 H 91 H 85 Pulse Rate [ Right From Monitor] Respiratory 25 H 27 H 17 Rate Blood Pressure 128/74 109/63 101/62 O2 Sat by Pulse 98 97 99 Oximetry 11/15/17 11/15/17 11/15/17 06:00 07:00 07:49 Temperature Pulse Rate 80 83 99 H Pulse Rate [ Right From Monitor] Respiratory 20 20 Rate Blood Pressure 107/63 104/61 113/68 O2 Sat by Pulse 100 99 Oximetry 11/15/17 11/15/17 11/15/17 07:53 08:00 09:00 Temperature 99.0 F Pulse Rate 100 H 98 H 86 Pulse Rate [ 99 H Right From Monitor] Respiratory 31 H 19 22 Rate Blood Pressure 113/68 112/69 106/63 O2 Sat by Pulse 98 96 94 Oximetry 11/15/17 11/15/17 11/15/17 10:00 11:00 11:36 Temperature Pulse Rate 100 H 90 92 H Pulse Rate [ Right From Monitor] Respiratory 18 19 20 Rate Blood Pressure 120/71 110/65 105/64 O2 Sat by Pulse 96 96 98 Oximetry 11/15/17 11/15/17 11/15/17 12:00 13:00 13:58 Temperature 99.0 F Pulse Rate 90 93 H 83 Pulse Rate [ 92 H Right From Monitor] Respiratory 24 22 28 H Rate Blood Pressure 109/67 115/67 116/63 O2 Sat by Pulse 98 99 Oximetry Constitutional: lethargic, other (intubated) Eyes: non-icteric ENT: oropharynx moist, other (ETT at 24 cm) Neck: supple, no JVD Ascultation: Bilateral: rhonchi (bilateral LT >>RT) Cardiovascular: regular rate and rhythm, other (tachycardic) Gastrointestinal: normoactive bowel sounds, non-distended Integumentary: normal Extremities: no cyanosis, no edema, other (RT femoral line in place) Neurologic: unable to assess (opens eyes spontaneously but does not follow commands . ) CBC and BMP: 11/13/17 04:50 11/13/17 04:50 ABG, PT/INR, D-dimer: ABG POC ABG pH 7.402 (7.35-7.45) 11/15/17 04:52 POC ABG pCO2 29.5 (35-45) L 11/15/17 04:52 POC ABG pO2 115 (80-105) H 11/15/17 04:52 POC ABG HCO3 18.4 11/15/17 04:52 POC ABG Total CO2 19 11/15/17 04:52 POC ABG O2 Sat 99 11/15/17 04:52 PT/INR, D-dimer PT 16.7 Sec. (12.2-14.9) H 11/12/17 00:23 INR 1.28 (0.87-1.13) H 11/12/17 00:23 Abnormal lab findings: Abnormal Labs 11/11/17 11/11/17 11/11/17 23:18 23:20 23:20 WBC RBC Hgb 10.4 L Hct 32.6 L D MCH 27 L MCHC RDW 17.4 H Plt Count 105 L Lymph % (Auto) [place] % (Auto) Lymph # [place] # Seg Neutrophils % Lymphocytes % (Manual) 8.0 L Nucleated RBC % 1.0 H Seg Neutrophils # Lymphocytes # (Manual) 0.7 L PT INR POC ABG pH 7.550 H POC ABG pCO2 31.6 L POC ABG pO2 Sodium 146 H Potassium Chloride Carbon Dioxide BUN 26 H Creatinine 1.7 H D Glucose 133 H Lactic Acid Calcium Troponin T 0.117 H* C-Reactive Protein Albumin 2.5 L LDL Cholesterol Direct 42 L HDL Cholesterol 24 L 11/11/17 11/12/17 11/12/17 23:20 00:23 00:23 WBC RBC Hgb Hct MCH MCHC RDW Plt Count Lymph % (Auto) [place] % (Auto) Lymph # [place] # Seg Neutrophils % Lymphocytes % (Manual) Nucleated RBC % Seg Neutrophils # Lymphocytes # (Manual) PT 16.7 H INR 1.28 H POC ABG pH POC ABG pCO2 POC ABG pO2 Sodium Potassium Chloride Carbon Dioxide BUN Creatinine Glucose Lactic Acid 3.20 H* Calcium Troponin T C-Reactive Protein 25.70 H Albumin LDL Cholesterol Direct HDL Cholesterol 11/12/17 11/12/17 11/12/17 00:46 01:27 01:27 WBC RBC Hgb Hct MCH MCHC RDW Plt Count Lymph % (Auto) [place] % (Auto) Lymph # [place] # Seg Neutrophils % Lymphocytes % (Manual) Nucleated RBC % Seg Neutrophils # Lymphocytes # (Manual) PT INR POC ABG pH 7.495 H POC ABG pCO2 32.0 L POC ABG pO2 64 L Sodium Potassium Chloride Carbon Dioxide BUN Creatinine Glucose Lactic Acid 3.70 H* Calcium Troponin T 0.096 H C-Reactive Protein Albumin LDL Cholesterol Direct HDL Cholesterol 11/12/17 11/12/17 11/12/17 03:21 04:50 06:27 WBC RBC Hgb Hct MCH MCHC RDW Plt Count Lymph % (Auto) [place] % (Auto) Lymph # [place] # Seg Neutrophils % Lymphocytes % (Manual) Nucleated RBC % Seg Neutrophils # Lymphocytes # (Manual) PT INR POC ABG pH POC ABG pCO2 POC ABG pO2 109 H Sodium Potassium Chloride Carbon Dioxide BUN Creatinine Glucose Lactic Acid 3.80 H* 2.20 H* Calcium Troponin T C-Reactive Protein Albumin LDL Cholesterol Direct HDL Cholesterol 11/12/17 11/12/17 11/12/17 09:24 09:24 09:24 WBC RBC Hgb 10.4 L Hct 33.4 L MCH MCHC RDW Plt Count Lymph % (Auto) [place] % (Auto) Lymph # [place] # Seg Neutrophils % Lymphocytes % (Manual) Nucleated RBC % Seg Neutrophils # Lymphocytes # (Manual) PT INR POC ABG pH POC ABG pCO2 POC ABG pO2 Sodium Potassium Chloride Carbon Dioxide BUN Creatinine Glucose Lactic Acid 2.90 H* Calcium Troponin T 0.091 H C-Reactive Protein Albumin LDL Cholesterol Direct HDL Cholesterol 11/12/17 11/12/17 11/12/17 12:56 20:03 Unknown WBC RBC Hgb Hct MCH MCHC RDW Plt Count Lymph % (Auto) [place] % (Auto) Lymph # [place] # Seg Neutrophils % Lymphocytes % (Manual) Nucleated RBC % Seg Neutrophils # Lymphocytes # (Manual) PT INR POC ABG pH POC ABG pCO2 POC ABG pO2 Sodium Potassium Chloride Carbon Dioxide BUN Creatinine Glucose Lactic Acid 3.60 H* Calcium Troponin T 0.102 H* 0.156 H* D C-Reactive Protein Albumin LDL Cholesterol Direct HDL Cholesterol 11/12/17 11/13/17 11/13/17 Unknown 04:50 04:50 WBC 12.2 H RBC 3.51 L Hgb 9.3 L Hct 30.1 L MCH 26 L MCHC 31 L RDW 18.0 H Plt Count 128 L Lymph % (Auto) 8.6 L [place] % (Auto) 11.1 H Lymph # 1.1 L [place] # 1.4 H Seg Neutrophils % 80.1 H Lymphocytes % (Manual) Nucleated RBC % Seg Neutrophils # 9.8 H Lymphocytes # (Manual) PT INR POC ABG pH POC ABG pCO2 POC ABG pO2 Sodium 149 H Potassium 5.1 H Chloride 114.4 H Carbon Dioxide 18 L BUN 52 H Creatinine 3.3 H D Glucose 129 H Lactic Acid Calcium 7.9 L Troponin T 0.098 H C-Reactive Protein Albumin LDL Cholesterol Direct HDL Cholesterol 11/13/17 11/13/17 11/14/17 04:51 09:34 04:21 WBC RBC Hgb Hct MCH MCHC RDW Plt Count Lymph % (Auto) [place] % (Auto) Lymph # [place] # Seg Neutrophils % Lymphocytes % (Manual) Nucleated RBC % Seg Neutrophils # Lymphocytes # (Manual) PT INR POC ABG pH POC ABG pCO2 30.1 L 29.8 L POC ABG pO2 135 H Sodium Potassium Chloride Carbon Dioxide BUN Creatinine Glucose Lactic Acid 2.10 H* Calcium Troponin T C-Reactive Protein Albumin LDL Cholesterol Direct HDL Cholesterol 11/15/17 04:52 WBC RBC Hgb Hct MCH MCHC RDW Plt Count Lymph % (Auto) [place] % (Auto) Lymph # [place] # Seg Neutrophils % Lymphocytes % (Manual) Nucleated RBC % Seg Neutrophils # Lymphocytes # (Manual) PT INR POC ABG pH POC ABG pCO2 29.5 L POC ABG pO2 115 H Sodium Potassium Chloride Carbon Dioxide BUN Creatinine Glucose Lactic Acid Calcium Troponin T C-Reactive Protein Albumin LDL Cholesterol Direct HDL Cholesterol
[2017-11-15 16:10] LABS: Calcium 8.1 mg/dL (8.4-10.2)
[2017-11-16] MEDS: ZOSYN/NS 2.25 GM/50ML 2.25 GM/50 ML BAG IV SCH ×3 (05:03→22:38)
[2017-11-16] MEDS ORDERED: LEVAQUIN 750MG/150ML 750 MG/150 ML BAG IV SCH (08:00)
--- NOTE | 2017-11-16 09:24 | Progress Note ---
Assessment and Plan Acute respiratory failure. multifactorial, sepsis, aspiration pneumonia, mucous plugging Sepsis,due to the above. On antibiotics, ID consulted AMS. Probably combination of sepsis, metabolic encephalopathy from prior brain injury Stroke Hypernatremia Acute kidney injury. Worsening creatinine Recommendations Switch IV fluids to D5W Discontinue femoral line is no longer needed Increased by mouth water sips Nephrology consult Follow-up BMP every 6-8 hours monitor her sodium drop gently, monitor kidney status Continue antibiotics. f/u hospital ventilator bundle, tolerating pressure support. ENT evaluated already for tracheotomy Sedation as needed for patient comfort Maintain extubation precautions Close monitoring for atelectasis No family available for case discussion. Critical care time was 31 minutes of [id number] evaluation and coordination of care Subjective Date of service: 11/16/17 Principal diagnosis: Ac resp failure, aspiration pneumonia/HAP,sepsis,stroke Interval history: Intubated Objective Vital Signs - 12hr 11/15/17 11/15/17 11/15/17 22:00 23:00 23:44 Temperature 98.9 F Pulse Rate 92 H 90 Respiratory 21 28 H Rate Blood Pressure 113/72 119/69 O2 Sat by Pulse 100 98 Oximetry 11/16/17 11/16/17 11/16/17 00:00 01:00 02:00 Temperature Pulse Rate 99 H 95 H 96 H Respiratory 21 20 22 Rate Blood Pressure 133/70 125/74 115/73 O2 Sat by Pulse 100 99 100 Oximetry 11/16/17 11/16/17 11/16/17 03:00 04:00 05:00 Temperature 98.8 F Pulse Rate 82 75 83 Respiratory 23 18 21 Rate Blood Pressure 111/67 117/67 113/68 O2 Sat by Pulse 100 Oximetry 11/16/17 11/16/17 11/16/17 06:00 07:00 08:00 Temperature 98.1 F Pulse Rate 94 H 97 H 81 Respiratory 25 H 25 H 19 Rate Blood Pressure 122/71 141/78 114/71 O2 Sat by Pulse 98 100 100 Oximetry 11/16/17 11/16/17 08:18 08:20 Temperature Pulse Rate 93 H 81 Respiratory 26 H Rate Blood Pressure 114/71 114/71 O2 Sat by Pulse 100 100 Oximetry Constitutional: lethargic, other (intubated) Eyes: non-icteric ENT: oropharynx moist, other (ETT at 24 cm) Neck: supple, no JVD Ascultation: Bilateral: rhonchi (bilateral LT >>RT) Cardiovascular: regular rate and rhythm, other (tachycardic) Gastrointestinal: normoactive bowel sounds, non-distended Integumentary: normal Extremities: no cyanosis, no edema, other (RT femoral line in place) Neurologic: unable to assess (opens eyes spontaneously but does not follow commands . ) CBC and BMP: 11/13/17 04:50 11/15/17 15:50 ABG, PT/INR, D-dimer: ABG POC ABG pH 7.409 (7.35-7.45) 11/16/17 05:17 POC ABG pCO2 31.5 (35-45) L 11/16/17 05:17 POC ABG pO2 122 (80-105) H 11/16/17 05:17 POC ABG HCO3 19.9 11/16/17 05:17 POC ABG Total CO2 21 11/16/17 05:17 POC ABG O2 Sat 99 11/16/17 05:17 PT/INR, D-dimer PT 16.7 Sec. (12.2-14.9) H 11/12/17 00:23 INR 1.28 (0.87-1.13) H 11/12/17 00:23 Abnormal lab findings: Abnormal Labs 11/11/17 11/11/17 11/11/17 23:18 23:20 23:20 WBC RBC Hgb 10.4 L Hct 32.6 L D MCH 27 L MCHC RDW 17.4 H Plt Count 105 L Lymph % (Auto) [place] % (Auto) Lymph # [place] # Seg Neutrophils % Lymphocytes % (Manual) 8.0 L Nucleated RBC % 1.0 H Seg Neutrophils # Lymphocytes # (Manual) 0.7 L PT INR POC ABG pH 7.550 H POC ABG pCO2 31.6 L POC ABG pO2 Sodium 146 H Potassium Chloride Carbon Dioxide BUN 26 H Creatinine 1.7 H D Glucose 133 H Lactic Acid Calcium Troponin T 0.117 H* C-Reactive Protein Albumin 2.5 L LDL Cholesterol Direct 42 L HDL Cholesterol 24 L 11/11/17 11/12/17 11/12/17 23:20 00:23 00:23 WBC RBC Hgb Hct MCH MCHC RDW Plt Count Lymph % (Auto) [place] % (Auto) Lymph # [place] # Seg Neutrophils % Lymphocytes % (Manual) Nucleated RBC % Seg Neutrophils # Lymphocytes # (Manual) PT 16.7 H INR 1.28 H POC ABG pH POC ABG pCO2 POC ABG pO2 Sodium Potassium Chloride Carbon Dioxide BUN Creatinine Glucose Lactic Acid 3.20 H* Calcium Troponin T C-Reactive Protein 25.70 H Albumin LDL Cholesterol Direct HDL Cholesterol 11/12/17 11/12/17 11/12/17 00:46 01:27 01:27 WBC RBC Hgb Hct MCH MCHC RDW Plt Count Lymph % (Auto) [place] % (Auto) Lymph # [place] # Seg Neutrophils % Lymphocytes % (Manual) Nucleated RBC % Seg Neutrophils # Lymphocytes # (Manual) PT INR POC ABG pH 7.495 H POC ABG pCO2 32.0 L POC ABG pO2 64 L Sodium Potassium Chloride Carbon Dioxide BUN Creatinine Glucose Lactic Acid 3.70 H* Calcium Troponin T 0.096 H C-Reactive Protein Albumin LDL Cholesterol Direct HDL Cholesterol 11/12/17 11/12/17 11/12/17 03:21 04:50 06:27 WBC RBC Hgb Hct MCH MCHC RDW Plt Count Lymph % (Auto) [place] % (Auto) Lymph # [place] # Seg Neutrophils % Lymphocytes % (Manual) Nucleated RBC % Seg Neutrophils # Lymphocytes # (Manual) PT INR POC ABG pH POC ABG pCO2 POC ABG pO2 109 H Sodium Potassium Chloride Carbon Dioxide BUN Creatinine Glucose Lactic Acid 3.80 H* 2.20 H* Calcium Troponin T C-Reactive Protein Albumin LDL Cholesterol Direct HDL Cholesterol 11/12/17 11/12/17 11/12/17 09:24 09:24 09:24 WBC RBC Hgb 10.4 L Hct 33.4 L MCH MCHC RDW Plt Count Lymph % (Auto) [place] % (Auto) Lymph # [place] # Seg Neutrophils % Lymphocytes % (Manual) Nucleated RBC % Seg Neutrophils # Lymphocytes # (Manual) PT INR POC ABG pH POC ABG pCO2 POC ABG pO2 Sodium Potassium Chloride Carbon Dioxide BUN Creatinine Glucose Lactic Acid 2.90 H* Calcium Troponin T 0.091 H C-Reactive Protein Albumin LDL Cholesterol Direct HDL Cholesterol 11/12/17 11/12/17 11/12/17 12:56 20:03 Unknown WBC RBC Hgb Hct MCH MCHC RDW Plt Count Lymph % (Auto) [place] % (Auto) Lymph # [place] # Seg Neutrophils % Lymphocytes % (Manual) Nucleated RBC % Seg Neutrophils # Lymphocytes # (Manual) PT INR POC ABG pH POC ABG pCO2 POC ABG pO2 Sodium Potassium Chloride Carbon Dioxide BUN Creatinine Glucose Lactic Acid 3.60 H* Calcium Troponin T 0.102 H* 0.156 H* D C-Reactive Protein Albumin LDL Cholesterol Direct HDL Cholesterol 11/12/17 11/13/17 11/13/17 Unknown 04:50 04:50 WBC 12.2 H RBC 3.51 L Hgb 9.3 L Hct 30.1 L MCH 26 L MCHC 31 L RDW 18.0 H Plt Count 128 L Lymph % (Auto) 8.6 L [place] % (Auto) 11.1 H Lymph # 1.1 L [place] # 1.4 H Seg Neutrophils % 80.1 H Lymphocytes % (Manual) Nucleated RBC % Seg Neutrophils # 9.8 H Lymphocytes # (Manual) PT INR POC ABG pH POC ABG pCO2 POC ABG pO2 Sodium 149 H Potassium 5.1 H Chloride 114.4 H Carbon Dioxide 18 L BUN 52 H Creatinine 3.3 H D Glucose 129 H Lactic Acid Calcium 7.9 L Troponin T 0.098 H C-Reactive Protein Albumin LDL Cholesterol Direct HDL Cholesterol 11/13/17 11/13/17 11/14/17 04:51 09:34 04:21 WBC RBC Hgb Hct MCH MCHC RDW Plt Count Lymph % (Auto) [place] % (Auto) Lymph # [place] # Seg Neutrophils % Lymphocytes % (Manual) Nucleated RBC % Seg Neutrophils # Lymphocytes # (Manual) PT INR POC ABG pH POC ABG pCO2 30.1 L 29.8 L POC ABG pO2 135 H Sodium Potassium Chloride Carbon Dioxide BUN Creatinine Glucose Lactic Acid 2.10 H* Calcium Troponin T C-Reactive Protein Albumin LDL Cholesterol Direct HDL Cholesterol 11/15/17 11/15/17 11/16/17 04:52 15:50 05:17 WBC RBC Hgb Hct MCH MCHC RDW Plt Count Lymph % (Auto) [place] % (Auto) Lymph # [place] # Seg Neutrophils % Lymphocytes % (Manual) Nucleated RBC % Seg Neutrophils # Lymphocytes # (Manual) PT INR POC ABG pH POC ABG pCO2 29.5 L 31.5 L POC ABG pO2 115 H 122 H Sodium 154 H Potassium Chloride 117.9 H Carbon Dioxide 19 L BUN 87 H Creatinine 4.1 H Glucose Lactic Acid Calcium 8.1 L Troponin T C-Reactive Protein Albumin LDL Cholesterol Direct HDL Cholesterol
--- NOTE | 2017-11-16 09:55 | Progress Note ---
Assessment and Plan Assessment and plan: Mr. Echavarria is a 67 yo man with a history of hypertension, CVA, OA and CAD who was admitted last month for large cva, causing Left hemiplegia, aphasia therefore peg was placed, dysphagia, and poor ability to clear his secretions, he was on abx for tracheobronchitis, he was dc to rehab, he was sent back to hospital for acute respiratory failure and and intubated Acute respiratory failure on MV; continue vent; it was conveyed to his daughter that he is not able to protect his airway well, therefore planned for trach, his daughter is still resistant to it -REcent CVA; continue secondary stroke ppx PNA/tracheobronchitis; cont abx, continue pulmonary toilet -Right Carotid artery stenosis and thrombosis post CEA surgery septic shock; weaned off pressors -Dyslipidemia; statin -Hypernatremia, continue free water and D5w -Acute metabolic encephalopathy: correct sodium level very carefully Dysphagia with aspiration; sp peg tube Coffee-ground material from peg tube; continue suction, keeping npo, per gi his presentation is not cw gi bleed Daughter wants to continue aggressive management, she believes he will recover, she is not interested in DNR or Hospice at this time CCT 33 minutes History Interval history: has now been weaned off pressors -continues to have coffee grounds suctioning from peg tube no seizures, Hospitalist Physical - Physical exam Narrative exam: General appearance: Present: mild distress, other (intubated on the vent) - EENT Eyes: Present: PERRL - Neck Neck: Present: supple - Respiratory Respiratory effort: labored Respiratory: bilateral: rales - Cardiovascular Rhythm: regular Heart Sounds: Present: S1 & S2 - Extremities Extremities: no ischemia - Abdominal General gastrointestinal: soft, non-tender - Integumentary Integumentary: Present: clear, warm, dry - Psychiatric Psychiatric: other (intubated) - Neurologic Neurologic: focal deficits (right hemiplegia) - Constitutional Vitals: Temp Pulse Resp BP Pulse Ox 98.1 F 81 26 H 114/71 100 11/16/17 08:00 11/16/17 08:20 11/16/17 08:20 11/16/17 08:20 11/16/17 08:20 General appearance: Present: no acute distress Results - Labs CBC & Chem 7: 11/17/17 10:00 11/17/17 04:07 Labs: Laboratory Last Values WBC 12.2 K/mm3 (4.5-11.0) H 11/13/17 04:50 RBC 3.51 M/mm3 (3.65-5.03) L 11/13/17 04:50 Hgb 9.3 gm/dl (11.8-15.2) L 11/13/17 04:50 Hct 30.1 % (35.5-45.6) L 11/13/17 04:50 MCV 86 fl (84-94) 11/13/17 04:50 MCH 26 pg (28-32) L 11/13/17 04:50 MCHC 31 % (32-34) L 11/13/17 04:50 RDW 18.0 % (13.2-15.2) H 11/13/17 04:50 Plt Count 128 K/mm3 (140-440) L 11/13/17 04:50 Lymph % (Auto) 8.6 % (13.4-35.0) L 11/13/17 04:50 [place] % (Auto) 11.1 % (0.0-7.3) H 11/13/17 04:50 Eos % (Auto) 0.0 % (0.0-4.3) 11/13/17 04:50 Baso % (Auto) 0.2 % (0.0-1.8) 11/13/17 04:50 Lymph # 1.1 K/mm3 (1.2-5.4) L 11/13/17 04:50 [place] # 1.4 K/mm3 (0.0-0.8) H 11/13/17 04:50 Eos # 0.0 K/mm3 (0.0-0.4) 11/13/17 04:50 Baso # 0.0 K/mm3 (0.0-0.1) 11/13/17 04:50 Add Manual Diff Complete 11/11/17 23:20 Total Counted 100 11/11/17 23:20 Seg Neutrophils % 80.1 % (40.0-70.0) H 11/13/17 04:50 Seg Neuts % (Manual) 58.0 % (40.0-70.0) 11/11/17 23:20 Band Neutrophils % 27.0 % 11/11/17 23:20 Lymphocytes % (Manual) 8.0 % (13.4-35.0) L 11/11/17 23:20 Reactive Lymphs % (Man) 0 % 11/11/17 23:20 Monocytes % (Manual) 7.0 % (0.0-7.3) 11/11/17 23:20 Eosinophils % (Manual) 0 % (0.0-4.3) 11/11/17 23:20 Basophils % (Manual) 0 % (0.0-1.8) 11/11/17 23:20 Metamyelocytes % 0 % 11/11/17 23:20 Myelocytes % 0 % 11/11/17 23:20 Promyelocytes % 0 % 11/11/17 23:20 Blast Cells % 0 % 11/11/17 23:20 Nucleated RBC % 1.0 % (0.0-0.9) H 11/11/17 23:20 Seg Neutrophils # 9.8 K/mm3 (1.8-7.7) H 11/13/17 04:50 Seg Neutrophils # Man 5.0 K/mm3 (1.8-7.7) 11/11/17 23:20 Band Neutrophils # 2.3 K/mm3 11/11/17 23:20 Lymphocytes # (Manual) 0.7 K/mm3 (1.2-5.4) L 11/11/17 23:20 Abs React Lymphs (Man) 0.0 K/mm3 11/11/17 23:20 Monocytes # (Manual) 0.6 K/mm3 (0.0-0.8) 11/11/17 23:20 Eosinophils # (Manual) 0.0 K/mm3 (0.0-0.4) 11/11/17 23:20 Basophils # (Manual) 0.0 K/mm3 (0.0-0.1) 11/11/17 23:20 Metamyelocytes # 0.0 K/mm3 11/11/17 23:20 Myelocytes # 0.0 K/mm3 11/11/17 23:20 Promyelocytes # 0.0 K/mm3 11/11/17 23:20 Blast Cells # 0.0 K/mm3 11/11/17 23:20 WBC Morphology Not Reportable 11/11/17 23:20 Hypersegmented Neuts Not Reportable 11/11/17 23:20 Hyposegmented Neuts Not Reportable 11/11/17 23:20 Hypogranular Neuts Not Reportable 11/11/17 23:20 Smudge Cells Not Reportable 11/11/17 23:20 Toxic Granulation Not Reportable 11/11/17 23:20 Toxic Vacuolation Not Reportable 11/11/17 23:20 Dohle Bodies Not Reportable 11/11/17 23:20 Pelger-Huet Anomaly Not Reportable 11/11/17 23:20 Evangelina Rods Not Reportable 11/11/17 23:20 Platelet Estimate Consistent w auto 11/11/17 23:20 Clumped Platelets Not Reportable 11/11/17 23:20 Plt Clumps, EDTA Not Reportable 11/11/17 23:20 Large Platelets Not Reportable 11/11/17 23:20 Giant Platelets Not Reportable 11/11/17 23:20 Platelet Satelliting Not Reportable 11/11/17 23:20 Plt Morphology Comment Not Reportable 11/11/17 23:20 RBC Morphology Not Reportable 11/11/17 23:20 Dimorphic RBCs Not Reportable 11/11/17 23:20 Polychromasia Not Reportable 11/11/17 23:20 Hypochromasia Not Reportable 11/11/17 23:20 Poikilocytosis Not Reportable 11/11/17 23:20 Anisocytosis 1+ 11/11/17 23:20 Microcytosis Not Reportable 11/11/17 23:20 Macrocytosis Not Reportable 11/11/17 23:20 Spherocytes Not Reportable 11/11/17 23:20 Pappenheimer Bodies Not Reportable 11/11/17 23:20 Sickle Cells Not Reportable 11/11/17 23:20 Target Cells Not Reportable 11/11/17 23:20 Tear Drop Cells Not Reportable 11/11/17 23:20 Ovalocytes 1+ 11/11/17 23:20 Helmet Cells Not Reportable 11/11/17 23:20 [place] Bodies Not Reportable 11/11/17 23:20 [place] Rings Not Reportable 11/11/17 23:20 [place] Cells Not Reportable 11/11/17 23:20 Bite Cells Not Reportable 11/11/17 23:20 Crenated Cell Not Reportable 11/11/17 23:20 Elliptocytes Not Reportable 11/11/17 23:20 Acanthocytes (Spur) Not Reportable 11/11/17 23:20 Rouleaux Not Reportable 11/11/17 23:20 Hemoglobin C Crystals Not Reportable 11/11/17 23:20 Schistocytes Not Reportable 11/11/17 23:20 Malaria parasites Not Reportable 11/11/17 23:20 [place] Bodies Not Reportable 11/11/17 23:20 Hem Pathologist Commnt No 11/11/17 23:20 PT 16.7 Sec. (12.2-14.9) H 11/12/17 00:23 INR 1.28 (0.87-1.13) H 11/12/17 00:23 APTT 31.7 Sec. (24.2-36.6) 11/12/17 00:23 POC ABG pH 7.409 (7.35-7.45) 11/16/17 05:17 POC ABG pCO2 31.5 (35-45) L 11/16/17 05:17 POC ABG pO2 122 (80-105) H 11/16/17 05:17 POC ABG HCO3 19.9 11/16/17 05:17 POC ABG Total CO2 21 11/16/17 05:17 POC ABG O2 Sat 99 11/16/17 05:17 POC ABG Base Excess -5 11/16/17 05:17 FiO2 30 % 11/16/17 05:17 Sodium 154 mmol/L (137-145) H 11/15/17 15:50 Potassium 4.3 mmol/L (3.6-5.0) 11/15/17 15:50 Chloride 117.9 mmol/L (98-107) H 11/15/17 15:50 Carbon Dioxide 19 mmol/L (22-30) L 11/15/17 15:50 Anion Gap 21 mmol/L 11/15/17 15:50 BUN 87 mg/dL (9-20) H 11/15/17 15:50 Creatinine 4.1 mg/dL (0.8-1.5) H 11/15/17 15:50 Estimated GFR 18 ml/min 11/15/17 15:50 BUN/Creatinine Ratio 21 % 11/15/17 15:50 Glucose 91 mg/dL (75-100) 11/15/17 15:50 POC Glucose 86 (70-105) 11/16/17 05:38 Lactic Acid 1.80 mmol/L (0.7-2.0) 11/13/17 14:21 Calcium 8.1 mg/dL (8.4-10.2) L 11/15/17 15:50 Total Bilirubin 1.10 mg/dL (0.1-1.2) 11/11/17 23:20 AST 27 units/L (5-40) 11/11/17 23:20 ALT 40 units/L (7-56) 11/11/17 23:20 Alkaline Phosphatase 90 units/L (35-129) 11/11/17 23:20 Total Creatine Kinase 84 units/L (55-170) 11/12/17 20:03 CK-MB (CK-2) < 1.0 ng/mL (0.0-4.0) 11/12/17 20:03 CK-MB (CK-2) Rel Index 1.1 (0-4) 11/12/17 20:03 Troponin T 0.098 ng/mL (0.00-0.029) H 11/12/17 Unknown C-Reactive Protein 25.70 mg/dL (0.00-1.30) H 11/11/17 23:20 NT-Pro-B Natriuret Pep 792.4 pg/mL (0-900) 11/11/17 23:20 Total Protein 6.5 g/dL (6.3-8.2) 11/11/17 23:20 Albumin 2.5 g/dL (3.9-5) L 11/11/17 23:20 Albumin/Globulin Ratio 0.6 % 11/11/17 23:20 Triglycerides 86 mg/dL (2-149) 11/11/17 23:20 Cholesterol 82 mg/dL (50-199) 11/11/17 23:20 LDL Cholesterol Direct 42 mg/dL (50-130) L 11/11/17 23:20 HDL Cholesterol 24 mg/dL (40-59) L 11/11/17 23:20 Cholesterol/HDL Ratio 3.41 % 11/11/17 23:20 Lipase 30 units/L (13-60) 11/11/17 23:20 Urine Color Nicole (Yellow) 11/11/17 23:09 Urine Turbidity Cloudy (Clear) 11/11/17 23:09 Urine pH 5.0 (5.0-7.0) 11/11/17 23:09 Ur Specific Powell 1.025 (1.003-1.030) 11/11/17 23:09 Urine Protein 100 mg/dl mg/dL (Negative) 11/11/17 23:09 Urine Glucose (UA) 50 mg/dL (Negative) 11/11/17 23:09 Urine Ketones Neg mg/dL (Negative) 11/11/17 23:09 Urine Blood Neg (Negative) 11/11/17 23:09 Urine Nitrite Neg (Negative) 11/11/17 23:09 Urine Bilirubin Neg (Negative) 11/11/17 23:09 Urine Urobilinogen 4.0 mg/dL (<2.0) 11/11/17 23:09 Ur Leukocyte Esterase Neg (Negative) 11/11/17 23:09 Urine WBC (Auto) 5.0 /HPF (0.0-6.0) 11/11/17 23:09 Urine RBC (Auto) 4.0 /HPF (0.0-6.0) 11/11/17 23:09 Urine Bacteria (Auto) 3+ /HPF (Negative) 11/11/17 23:09 Amorphous Crystals 3+ 11/11/17 23:09 Hyaline Casts 76 /LPF 11/11/17 23:09 Urine Mucus 2+ /HPF 11/11/17 23:09
[2017-11-16] MEDS: D5W 1,000 ML IV SCH (10:31)
[2017-11-16] MEDS: BABY ASPIRIN PO SCH (10:31)
[2017-11-16] MEDS: PROTONIX (nf) FEEDTUBE SCH ×2 (10:31→22:40)
[2017-11-16] MEDS: SODIUM CHLORIDE FLUSH SYRINGE 10 ML IV SCH (10:32)
--- NOTE | 2017-11-16 14:42 | Progress Note ---
Assessment and Plan Assessment * Hypernatremia * DARYA * Hypokalemia * Acute CVA * s/p CEA * Encephalopathy * respiratory failure Plan: * Needs more free H2O w/ TF as SNa is increasing * add d5w * strict i/os * keep map >65 * strict i/os * daily lytes * ua noted * Consultants' recommendations reviewed * Replete lytes prn * Avoid nephrotoxins Subjective Date of service: 11/16/17 Principal diagnosis: Ac resp failure, aspiration pneumonia/HAP,sepsis,stroke Interval history: new consult noted, last seen 11/09 with normal renal function Objective - Exam Narrative Exam: Constitutional: lethargic, other (intubated) Eyes: non-icteric ENT: oropharynx moist, other (ETT at 24 cm) Neck: supple, no JVD Ascultation: Bilateral: rhonchi (bilateral LT >>RT) Cardiovascular: regular rate and rhythm, other (tachycardic) Gastrointestinal: normoactive bowel sounds, non-distended Integumentary: normal Extremities: no cyanosis, no edema, other (RT femoral line in place) Neurologic: unable to assess (opens eyes spontaneously but does not follow commands . ) - Vital Signs Vital signs: Vital Signs - 12hr 11/16/17 11/16/17 11/16/17 03:00 04:00 05:00 Temperature 98.8 F Pulse Rate 82 75 83 Respiratory 23 18 21 Rate Blood Pressure 111/67 117/67 113/68 O2 Sat by Pulse 100 Oximetry 11/16/17 11/16/17 11/16/17 06:00 07:00 08:00 Temperature 98.1 F Pulse Rate 94 H 97 H 81 Respiratory 25 H 25 H 19 Rate Blood Pressure 122/71 141/78 114/71 O2 Sat by Pulse 98 100 100 Oximetry 11/16/17 11/16/17 11/16/17 08:18 08:20 09:00 Temperature Pulse Rate 93 H 81 90 Respiratory 26 H 26 H Rate Blood Pressure 114/71 114/71 121/73 O2 Sat by Pulse 100 100 98 Oximetry 11/16/17 11/16/17 11/16/17 10:00 10:55 11:00 Temperature Pulse Rate 83 94 H 101 H Respiratory 24 28 H 27 H Rate Blood Pressure 122/72 118/75 151/88 O2 Sat by Pulse 98 99 99 Oximetry 11/16/17 11/16/17 11/16/17 12:00 13:00 14:00 Temperature 98.6 F Pulse Rate 87 84 97 H Respiratory 19 22 29 H Rate Blood Pressure 121/74 113/69 142/82 O2 Sat by Pulse 99 99 100 Oximetry - Lab 11/13/17 04:50 11/15/17 15:50 Most recent lab results Calcium 8.1 mg/dL (8.4-10.2) L 11/15/17 15:50
--- NOTE | 2017-11-16 17:08 | Progress Note ---
Assessment and Plan Assessment: 1) Sepsis with transient septic shock: shock resolved, fever resolved, leukocytosis worsening. Etiology most likely VAP/post-obstructive pneumonia. CRP=25 2) VAP vs post-obstructive pneumonia (mucous mugging) -initial sputum 10/10 Klebsiella -sputum 11/12 usual respiratory estela -CXR showed increased perihilar alveolar density >RLL than LLL. -CTA showed complete atelectasis of the LLL with mediatinal shift to the left due to blockage of the left main bronchus by ETT. 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, placement of recent PEG tube with prolonged recent admission from 10/04-/11/10/17 4) Acute encephalopathy 5) Acute Respiratory failure 6) DARYA 7) Hypernatremia Plan: -continue zosyn total 7 days -needs trach -monitor leukocytosis -remove right femoral central line Thank you for your consultation, will follow up with you. Olga Mercedes MD Infectious Diseases Specialist [facility] M [phone] O [phone] Subjective Date of service: 11/16/17 Principal diagnosis: Ac resp failure, aspiration pneumonia/HAP,sepsis,stroke Interval history: Remains on the vent on CPAP, fever trending down Microbiology: Blood cultures: 10/24 FELT HANGER 10/29 neg 11/10 neg 11/12 ngtd Urine cultures: Respiratory cultures: 10/10 Klebsiella 11/12 usual resp estela Current Antimicrobials: Zosyn Levaquin Previous Antimicrobials: Objective - Exam Narrative Exam: General appearance: sedated on the vent non verbal on CPAP Eyes: anicteric sclerae, moist conjunctivae; no lid-lag; PERRLA HENT: Atraumatic; oropharynx+ETT +OGT Neck: Trachea midline; supple, no thyromegaly or lymphadenopathy Lungs: scattered rhonchi CV: tachy Abdomen: Soft, distended +PEG Extremities: winnie arms/legs edema Skin: Normal temperature, turgor and texture; no rash, ulcers or subcutaneous nodules Psych: sedated Neuro: sedated Lines: condom cath - Constitutional Vitals: Vital Signs Temp Pulse Resp BP Pulse Ox 98.5 F 97 H 25 H 144/84 100 11/16/17 16:00 11/16/17 16:11/16/17 16:11/16/17 16:00 11/16/17 16:00 Temperature -Last 24 Hours Temperature 98.5 F Temperature 98.6 F Temperature 98.1 F Temperature 98.8 F Temperature 98.9 F Temperature 98.8 F - Labs CBC & Chem 7: 11/13/17 04:50 11/15/17 15:50 Labs: Abnormal lab results 11/16/17 Range/Units 05:17 POC ABG pCO2 31.5 L (35-45) POC ABG pO2 122 H (80-105)
[2017-11-16 17:17] LABS: Calcium 8.1 mg/dL (8.4-10.2)
[2017-11-16] MEDS: DIPRIVAN 10 MG/ML 1,000 MG/100 ML BOTTLE IV SCH (22:37)
[2017-11-17] MEDS: D5W 1,000 ML IV SCH ×2 (02:48→16:42)
--- NOTE | 2017-11-17 08:42 | Progress Note ---
Assessment and Plan Acute respiratory failure. multifactorial, sepsis, aspiration pneumonia, mucous plugging GI bleeding. Found to coffee ground resident this morning. Aspirin was discontinued immediately previously on ASA/Plavix Sepsis,due to the above. On antibiotics, ID consulted AMS. Probably combination of sepsis, metabolic encephalopathy from prior brain injury Stroke Hypernatremia- on D5W,free water replacement Acute kidney injury. Worsening creatinine Recommendations Continue D5W Increased by mouth water sips Nephrology f/u DC aspirin Serial H&H GI consult for reevaluation Follow-up BMP monitoring , kidney status Continue antibiotics. Patient was scheduled for tracheotomy, but I have been being informed by the nursing staff that the patient daughter declined tracheotomy. Peripheral expectation is that he will get better without this procedure per nursing report. I do not anticipate the patient will be weaned off without this, has been already started on the record from prior family discussions. We'll try to update the family about this at the this opportunity. Maintain extubation precautions No family available for case discussion. Will leave message for case discussion Critical care time was 31 minutes of [id number] evaluation and coordination of care Subjective Date of service: 11/17/17 Principal diagnosis: Ac resp failure, aspiration pneumonia/HAP,sepsis,stroke Interval history: Intubated Objective Vital Signs - 12hr 11/16/17 11/16/17 11/16/17 20:42 21:00 22:00 Temperature Pulse Rate 90 87 93 H Pulse Rate [ Right From Monitor] Respiratory 21 21 23 Rate Blood Pressure 133/69 118/52 128/65 O2 Sat by Pulse 100 98 98 Oximetry 11/16/17 11/16/17 11/17/17 23:00 23:17 00:00 Temperature 98.5 F Pulse Rate 95 H 96 H 96 H Pulse Rate [ 92 H Right From Monitor] Respiratory 23 23 Rate Blood Pressure 134/72 134/72 129/73 O2 Sat by Pulse 98 100 99 Oximetry 11/17/17 11/17/17 11/17/17 01:00 02:00 03:00 Temperature Pulse Rate 92 H 86 86 Pulse Rate [ Right From Monitor] Respiratory 23 22 21 Rate Blood Pressure 124/72 119/64 123/77 O2 Sat by Pulse 99 99 99 Oximetry 11/17/17 11/17/17 03:59 04:00 Temperature 98.4 F Pulse Rate Pulse Rate [ 89 Right From Monitor] Respiratory Rate Blood Pressure O2 Sat by Pulse 100 Oximetry Constitutional: lethargic, other (intubated) Eyes: non-icteric ENT: oropharynx moist, other (ETT at 24 cm) Neck: supple, no JVD Ascultation: Bilateral: rhonchi (sporadic) Cardiovascular: regular rate and rhythm, other (tachycardic) Gastrointestinal: normoactive bowel sounds, non-distended Integumentary: normal Extremities: no cyanosis, no edema, other (RT femoral line in place) Neurologic: unable to assess (opens eyes spontaneously but does not follow commands . ) CBC and BMP: 11/13/17 04:50 11/17/17 04:07 ABG, PT/INR, D-dimer: ABG POC ABG pH 7.409 (7.35-7.45) 11/16/17 05:17 POC ABG pCO2 31.5 (35-45) L 11/16/17 05:17 POC ABG pO2 122 (80-105) H 11/16/17 05:17 POC ABG HCO3 19.9 11/16/17 05:17 POC ABG Total CO2 21 11/16/17 05:17 POC ABG O2 Sat 99 11/16/17 05:17 PT/INR, D-dimer PT 16.7 Sec. (12.2-14.9) H 11/12/17 00:23 INR 1.28 (0.87-1.13) H 11/12/17 00:23 Abnormal lab findings: Abnormal Labs 11/11/17 11/11/17 11/11/17 23:18 23:20 23:20 WBC RBC Hgb 10.4 L Hct 32.6 L D MCH 27 L MCHC RDW 17.4 H Plt Count 105 L Lymph % (Auto) [place] % (Auto) Lymph # [place] # Seg Neutrophils % Lymphocytes % (Manual) 8.0 L Nucleated RBC % 1.0 H Seg Neutrophils # Lymphocytes # (Manual) 0.7 L PT INR POC ABG pH 7.550 H POC ABG pCO2 31.6 L POC ABG pO2 Sodium 146 H Potassium Chloride Carbon Dioxide BUN 26 H Creatinine 1.7 H D Glucose 133 H Lactic Acid Calcium Troponin T 0.117 H* C-Reactive Protein Albumin 2.5 L LDL Cholesterol Direct 42 L HDL Cholesterol 24 L 11/11/17 11/12/17 11/12/17 23:20 00:23 00:23 WBC RBC Hgb Hct MCH MCHC RDW Plt Count Lymph % (Auto) [place] % (Auto) Lymph # [place] # Seg Neutrophils % Lymphocytes % (Manual) Nucleated RBC % Seg Neutrophils # Lymphocytes # (Manual) PT 16.7 H INR 1.28 H POC ABG pH POC ABG pCO2 POC ABG pO2 Sodium Potassium Chloride Carbon Dioxide BUN Creatinine Glucose Lactic Acid 3.20 H* Calcium Troponin T C-Reactive Protein 25.70 H Albumin LDL Cholesterol Direct HDL Cholesterol 11/12/17 11/12/17 11/12/17 00:46 01:27 01:27 WBC RBC Hgb Hct MCH MCHC RDW Plt Count Lymph % (Auto) [place] % (Auto) Lymph # [place] # Seg Neutrophils % Lymphocytes % (Manual) Nucleated RBC % Seg Neutrophils # Lymphocytes # (Manual) PT INR POC ABG pH 7.495 H POC ABG pCO2 32.0 L POC ABG pO2 64 L Sodium Potassium Chloride Carbon Dioxide BUN Creatinine Glucose Lactic Acid 3.70 H* Calcium Troponin T 0.096 H C-Reactive Protein Albumin LDL Cholesterol Direct HDL Cholesterol 11/12/17 11/12/17 11/12/17 03:21 04:50 06:27 WBC RBC Hgb Hct MCH MCHC RDW Plt Count Lymph % (Auto) [place] % (Auto) Lymph # [place] # Seg Neutrophils % Lymphocytes % (Manual) Nucleated RBC % Seg Neutrophils # Lymphocytes # (Manual) PT INR POC ABG pH POC ABG pCO2 POC ABG pO2 109 H Sodium Potassium Chloride Carbon Dioxide BUN Creatinine Glucose Lactic Acid 3.80 H* 2.20 H* Calcium Troponin T C-Reactive Protein Albumin LDL Cholesterol Direct HDL Cholesterol 11/12/17 11/12/17 11/12/17 09:24 09:24 09:24 WBC RBC Hgb 10.4 L Hct 33.4 L MCH MCHC RDW Plt Count Lymph % (Auto) [place] % (Auto) Lymph # [place] # Seg Neutrophils % Lymphocytes % (Manual) Nucleated RBC % Seg Neutrophils # Lymphocytes # (Manual) PT INR POC ABG pH POC ABG pCO2 POC ABG pO2 Sodium Potassium Chloride Carbon Dioxide BUN Creatinine Glucose Lactic Acid 2.90 H* Calcium Troponin T 0.091 H C-Reactive Protein Albumin LDL Cholesterol Direct HDL Cholesterol 11/12/17 11/12/17 11/12/17 12:56 20:03 Unknown WBC RBC Hgb Hct MCH MCHC RDW Plt Count Lymph % (Auto) [place] % (Auto) Lymph # [place] # Seg Neutrophils % Lymphocytes % (Manual) Nucleated RBC % Seg Neutrophils # Lymphocytes # (Manual) PT INR POC ABG pH POC ABG pCO2 POC ABG pO2 Sodium Potassium Chloride Carbon Dioxide BUN Creatinine Glucose Lactic Acid 3.60 H* Calcium Troponin T 0.102 H* 0.156 H* D C-Reactive Protein Albumin LDL Cholesterol Direct HDL Cholesterol 11/12/17 11/13/17 11/13/17 Unknown 04:50 04:50 WBC 12.2 H RBC 3.51 L Hgb 9.3 L Hct 30.1 L MCH 26 L MCHC 31 L RDW 18.0 H Plt Count 128 L Lymph % (Auto) 8.6 L [place] % (Auto) 11.1 H Lymph # 1.1 L [place] # 1.4 H Seg Neutrophils % 80.1 H Lymphocytes % (Manual) Nucleated RBC % Seg Neutrophils # 9.8 H Lymphocytes # (Manual) PT INR POC ABG pH POC ABG pCO2 POC ABG pO2 Sodium 149 H Potassium 5.1 H Chloride 114.4 H Carbon Dioxide 18 L BUN 52 H Creatinine 3.3 H D Glucose 129 H Lactic Acid Calcium 7.9 L Troponin T 0.098 H C-Reactive Protein Albumin LDL Cholesterol Direct HDL Cholesterol 11/13/17 11/13/17 11/14/17 04:51 09:34 04:21 WBC RBC Hgb Hct MCH MCHC RDW Plt Count Lymph % (Auto) [place] % (Auto) Lymph # [place] # Seg Neutrophils % Lymphocytes % (Manual) Nucleated RBC % Seg Neutrophils # Lymphocytes # (Manual) PT INR POC ABG pH POC ABG pCO2 30.1 L 29.8 L POC ABG pO2 135 H Sodium Potassium Chloride Carbon Dioxide BUN Creatinine Glucose Lactic Acid 2.10 H* Calcium Troponin T C-Reactive Protein Albumin LDL Cholesterol Direct HDL Cholesterol 11/15/17 11/15/17 11/16/17 04:52 15:50 05:17 WBC RBC Hgb Hct MCH MCHC RDW Plt Count Lymph % (Auto) [place] % (Auto) Lymph # [place] # Seg Neutrophils % Lymphocytes % (Manual) Nucleated RBC % Seg Neutrophils # Lymphocytes # (Manual) PT INR POC ABG pH POC ABG pCO2 29.5 L 31.5 L POC ABG pO2 115 H 122 H Sodium 154 H Potassium Chloride 117.9 H Carbon Dioxide 19 L BUN 87 H Creatinine 4.1 H Glucose Lactic Acid Calcium 8.1 L Troponin T C-Reactive Protein Albumin LDL Cholesterol Direct HDL Cholesterol 11/16/17 16:37 WBC RBC Hgb Hct MCH MCHC RDW Plt Count Lymph % (Auto) [place] % (Auto) Lymph # [place] # Seg Neutrophils % Lymphocytes % (Manual) Nucleated RBC % Seg Neutrophils # Lymphocytes # (Manual) PT INR POC ABG pH POC ABG pCO2 POC ABG pO2 Sodium 153 H Potassium Chloride 117.3 H Carbon Dioxide 19 L BUN 90 H Creatinine 3.9 H Glucose 111 H Lactic Acid Calcium 8.1 L Troponin T C-Reactive Protein Albumin LDL Cholesterol Direct HDL Cholesterol
--- NOTE | 2017-11-17 09:48 | Progress Note ---
Assessment and Plan Assessment * Hypernatremia * DARYA * Hypokalemia * Acute CVA * s/p CEA * Encephalopathy * respiratory failure Plan: * Needs more free H2O w/ TF as SNa is increasing * added d5w, increase rate * strict i/os * keep map >65 * strict i/os * daily lytes * ua noted * Consultants' recommendations reviewed * Replete lytes prn * Avoid nephrotoxins Subjective Date of service: 11/17/17 Principal diagnosis: Ac resp failure, aspiration pneumonia/HAP,sepsis,stroke Interval history: new consult noted, last seen 11/09 with normal renal function Objective - Exam Narrative Exam: Constitutional: lethargic, other (intubated) Eyes: non-icteric ENT: oropharynx moist, other (ETT at 24 cm) Neck: supple, no JVD Ascultation: Bilateral: rhonchi (bilateral LT >>RT) Cardiovascular: regular rate and rhythm, other (tachycardic) Gastrointestinal: normoactive bowel sounds, non-distended Integumentary: normal Extremities: no cyanosis, no edema, other (RT femoral line in place) Neurologic: unable to assess (opens eyes spontaneously but does not follow commands . ) - Vital Signs Vital signs: Vital Signs - 12hr 11/16/17 11/16/17 11/16/17 22:00 23:00 23:17 Temperature Pulse Rate 93 H 95 H 96 H Pulse Rate [ Right From Monitor] Respiratory 23 23 Rate Blood Pressure 128/65 134/72 134/72 O2 Sat by Pulse 98 98 100 Oximetry 11/17/17 11/17/17 11/17/17 00:00 01:00 02:00 Temperature 98.5 F Pulse Rate 96 H 92 H 86 Pulse Rate [ 92 H Right From Monitor] Respiratory 23 23 22 Rate Blood Pressure 129/73 124/72 119/64 O2 Sat by Pulse 99 99 99 Oximetry 11/17/17 11/17/17 11/17/17 03:00 03:59 04:00 Temperature 98.4 F Pulse Rate 86 85 Pulse Rate [ 89 Right From Monitor] Respiratory 21 21 Rate Blood Pressure 123/77 125/74 O2 Sat by Pulse 99 100 Oximetry 11/17/17 11/17/17 11/17/17 05:00 06:00 07:00 Temperature Pulse Rate 78 88 Pulse Rate [ Right From Monitor] Respiratory 20 21 Rate Blood Pressure 129/72 136/71 123/75 O2 Sat by Pulse 98 100 Oximetry 11/17/17 11/17/17 11/17/17 08:00 08:56 09:00 Temperature 98.5 F Pulse Rate 84 88 86 Pulse Rate [ 89 Right From Monitor] Respiratory 19 15 Rate Blood Pressure 128/74 123/77 130/77 O2 Sat by Pulse 100 100 100 Oximetry - Lab 11/13/17 04:50 11/17/17 04:07 Most recent lab results Calcium 8.0 mg/dL (8.4-10.2) L 11/17/17 04:07
[2017-11-17 10:32] LABS: Mean Corpuscular HGB Conc 30 % (32-34); Mean Corpuscular Volume 87 fl (84-94); Platelet Count 254 K/mm3 (140-440); Red Blood Count 3.23 M/mm3 (3.65-5.03); Red Cell Distribution Width 18.8 % (13.2-15.2)
[2017-11-17 10:34] LABS: Hematocrit 28.1 % (35.5-45.6); Hemoglobin 8.3 gm/dl (11.8-15.2); Mean Corpuscular Hemoglobin 26 pg (28-32)
[2017-11-17] MEDS: PROTONIX (nf) FEEDTUBE SCH (11:00)
[2017-11-17] MEDS: SODIUM CHLORIDE FLUSH SYRINGE 10 ML IV SCH (11:05)
[2017-11-17] MEDS: BABY ASPIRIN PO SCH (11:06)
[2017-11-17] MEDS ORDERED: SIMPLE SYRUP FEEDTUBE PRN ×2 (11:41)
[2017-11-17] MEDS ORDERED: SODIUM BICARBONATE FEEDTUBE PRN (11:41)
[2017-11-17] MEDS ORDERED: PANCREAZE DR 10,500 UNIT FEEDTUBE PRN (11:41)
[2017-11-17 12:56] LABS: Band Neutrophils # (Manual) 0.4 K/mm3; Basophils % (Manual) 0 % (0.0-1.8); Total Cells Counted 100
[2017-11-17 12:57] LABS: Anisocytosis 1+; Hypochromasia 1+
[2017-11-17 12:58] LABS: Large Platelets Few; Platelet Estimate Cons
[2017-11-17 12:59] LABS: Myelocytes # (Manual) 0.2 K/mm3
[2017-11-17 13:00] LABS: Acanthocytes Few; Poikilocytosis 1+; Tear Drop Cells Few
[2017-11-17] MEDS: ZOSYN/NS 2.25 GM/50ML 2.25 GM/50 ML BAG IV SCH ×3 (13:28→21:20)
--- NOTE | 2017-11-17 14:50 | Progress Note ---
Assessment and Plan Assessment and plan: Mr. Echavarria is a 67 yo man with a history of hypertension, CVA, OA and CAD who was admitted last month for large cva, causing Left hemiplegia, aphasia therefore peg was placed, dysphagia, and poor ability to clear his secretions, he was on abx for tracheobronchitis, he was dc to rehab, he was sent back to hospital for acute respiratory failure and and intubated Acute respiratory failure on MV; continue vent; it was conveyed to his daughter that he is not able to protect his airway well, therefore planned for trach, his daughter is still resistant to it -REcent CVA; continue secondary stroke ppx PNA/tracheobronchitis; cont abx, continue pulmonary toilet -Right Carotid artery stenosis and thrombosis post CEA surgery septic shock; weaned off pressors -Dyslipidemia; statin -Hypernatremia, continue free water and D5w -Acute metabolic encephalopathy: correct sodium level very carefully Dysphagia with aspiration; sp peg tube Coffee-ground material from peg tube; continue suction, keeping npo, per gi his presentation is not cw gi bleed; obtain kub Daughter wants to continue aggressive management, she believes he will recover, she is not interested in DNR or Hospice at this time CCT 33 minutes History Interval history: has now been weaned off pressors -continues to have coffee grounds suctioning from peg tube no seizures, Hospitalist Physical - Physical exam Narrative exam: General appearance: Present: mild distress, other (intubated on the vent) - EENT Eyes: Present: PERRL - Neck Neck: Present: supple - Respiratory Respiratory effort: labored Respiratory: bilateral: rales - Cardiovascular Rhythm: regular Heart Sounds: Present: S1 & S2 - Extremities Extremities: no ischemia - Abdominal General gastrointestinal: soft, non-tender - Integumentary Integumentary: Present: clear, warm, dry - Psychiatric Psychiatric: other (intubated) - Neurologic Neurologic: focal deficits (right hemiplegia) - Constitutional Vitals: Temp Pulse Resp BP Pulse Ox 98.5 F 89 28 H 148/85 99 11/17/17 12:00 11/17/17 13:00 11/17/17 13:00 11/17/17 13:00 11/17/17 13:00 General appearance: Present: no acute distress Results - Labs CBC & Chem 7: 11/17/17 10:00 11/17/17 04:07 Labs: Laboratory Last Values WBC 14.7 K/mm3 (4.5-11.0) H 11/17/17 10:00 RBC 3.23 M/mm3 (3.65-5.03) L 11/17/17 10:00 Hgb 8.3 gm/dl (11.8-15.2) L 11/17/17 10:00 Hct 28.1 % (35.5-45.6) L 11/17/17 10:00 MCV 87 fl (84-94) 11/17/17 10:00 MCH 26 pg (28-32) L 11/17/17 10:00 MCHC 30 % (32-34) L 11/17/17 10:00 RDW 18.8 % (13.2-15.2) H 11/17/17 10:00 Plt Count 254 K/mm3 (140-440) 11/17/17 10:00 Lymph % (Auto) 8.6 % (13.4-35.0) L 11/13/17 04:50 [place] % (Auto) 11.1 % (0.0-7.3) H 11/13/17 04:50 Eos % (Auto) 0.0 % (0.0-4.3) 11/13/17 04:50 Baso % (Auto) 0.2 % (0.0-1.8) 11/13/17 04:50 Lymph # 1.1 K/mm3 (1.2-5.4) L 11/13/17 04:50 [place] # 1.4 K/mm3 (0.0-0.8) H 11/13/17 04:50 Eos # 0.0 K/mm3 (0.0-0.4) 11/13/17 04:50 Baso # 0.0 K/mm3 (0.0-0.1) 11/13/17 04:50 Add Manual Diff Complete 11/17/17 10:00 Total Counted 100 11/17/17 10:00 Seg Neutrophils % 80.1 % (40.0-70.0) H 11/13/17 04:50 Seg Neuts % (Manual) 75 % (40.0-70.0) H 11/17/17 10:00 Band Neutrophils % 3.0 % 11/17/17 10:00 Lymphocytes % (Manual) 8.0 % (13.4-35.0) L 11/17/17 10:00 Reactive Lymphs % (Man) 0 % 11/17/17 10:00 Monocytes % (Manual) 6.0 % (0.0-7.3) 11/17/17 10:00 Eosinophils % (Manual) 3.0 % (0.0-4.3) 11/17/17 10:00 Basophils % (Manual) 0 % (0.0-1.8) 11/17/17 10:00 Metamyelocytes % 3.0 % 11/17/17 10:00 Myelocytes % 2 % 11/17/17 10:00 Promyelocytes % 0 % 11/17/17 10:00 Blast Cells % 0 % 11/17/17 10:00 Nucleated RBC % 1.0 % (0.0-0.9) H 11/17/17 10:00 Seg Neutrophils # 9.8 K/mm3 (1.8-7.7) H 11/13/17 04:50 Seg Neutrophils # Man 11.0 K/mm3 (1.8-7.7) H 11/17/17 10:00 Band Neutrophils # 0.4 K/mm3 11/17/17 10:00 Lymphocytes # (Manual) 1.2 K/mm3 (1.2-5.4) 11/17/17 10:00 Abs React Lymphs (Man) 0.0 K/mm3 11/17/17 10:00 Monocytes # (Manual) 0.9 K/mm3 (0.0-0.8) H 11/17/17 10:00 Eosinophils # (Manual) 0.4 K/mm3 (0.0-0.4) 11/17/17 10:00 Basophils # (Manual) 0.0 K/mm3 (0.0-0.1) 11/17/17 10:00 Metamyelocytes # 0.4 K/mm3 11/17/17 10:00 Myelocytes # 0.2 K/mm3 11/17/17 10:00 Promyelocytes # 0.0 K/mm3 11/17/17 10:00 Blast Cells # 0.0 K/mm3 11/17/17 10:00 WBC Morphology Not Reportable 11/17/17 10:00 Hypersegmented Neuts Not Reportable 11/17/17 10:00 Hyposegmented Neuts Not Reportable 11/17/17 10:00 Hypogranular Neuts Not Reportable 11/17/17 10:00 Smudge Cells Not Reportable 11/17/17 10:00 Toxic Granulation Not Reportable 11/17/17 10:00 Toxic Vacuolation Not Reportable 11/17/17 10:00 Dohle Bodies Not Reportable 11/17/17 10:00 Pelger-Huet Anomaly Not Reportable 11/17/17 10:00 Evangelina Rods Not Reportable 11/17/17 10:00 Platelet Estimate Cons 11/17/17 10:00 Clumped Platelets Not Reportable 11/17/17 10:00 Plt Clumps, EDTA Not Reportable 11/17/17 10:00 Large Platelets Few 11/17/17 10:00 Giant Platelets Not Reportable 11/17/17 10:00 Platelet Satelliting Not Reportable 11/17/17 10:00 Plt Morphology Comment Not Reportable 11/17/17 10:00 RBC Morphology Not Reportable 11/17/17 10:00 Dimorphic RBCs Not Reportable 11/17/17 10:00 Polychromasia Not Reportable 11/17/17 10:00 Hypochromasia 1+ 11/17/17 10:00 Poikilocytosis 1+ 11/17/17 10:00 Anisocytosis 1+ 11/17/17 10:00 Microcytosis Not Reportable 11/17/17 10:00 Macrocytosis Not Reportable 11/17/17 10:00 Spherocytes Not Reportable 11/17/17 10:00 Pappenheimer Bodies Not Reportable 11/17/17 10:00 Sickle Cells Not Reportable 11/17/17 10:00 Target Cells Not Reportable 11/17/17 10:00 Tear Drop Cells Few 11/17/17 10:00 Ovalocytes Not Reportable 11/17/17 10:00 Helmet Cells Not Reportable 11/17/17 10:00 [place] Bodies Not Reportable 11/17/17 10:00 [place] Rings Not Reportable 11/17/17 10:00 Lucretia Cells Not Reportable 11/17/17 10:00 Bite Cells Not Reportable 11/17/17 10:00 Crenated Cell Not Reportable 11/17/17 10:00 Elliptocytes Not Reportable 11/17/17 10:00 Acanthocytes (Spur) Few 11/17/17 10:00 Rouleaux Not Reportable 11/17/17 10:00 Hemoglobin C Crystals Not Reportable 11/17/17 10:00 Schistocytes Not Reportable 11/17/17 10:00 Malaria parasites Not Reportable 11/17/17 10:00 [place] Bodies Not Reportable 11/17/17 10:00 Hem Pathologist Commnt No 11/17/17 10:00 PT 16.7 Sec. (12.2-14.9) H 11/12/17 00:23 INR 1.28 (0.87-1.13) H 11/12/17 00:23 APTT 31.7 Sec. (24.2-36.6) 11/12/17 00:23 POC ABG pH 7.409 (7.35-7.45) 11/16/17 05:17 POC ABG pCO2 31.5 (35-45) L 11/16/17 05:17 POC ABG pO2 122 (80-105) H 11/16/17 05:17 POC ABG HCO3 19.9 11/16/17 05:17 POC ABG Total CO2 21 11/16/17 05:17 POC ABG O2 Sat 99 11/16/17 05:17 POC ABG Base Excess -5 11/16/17 05:17 FiO2 30 % 11/16/17 05:17 Sodium 155 mmol/L (137-145) H 11/17/17 04:07 Potassium 3.8 mmol/L (3.6-5.0) 11/17/17 04:07 Chloride 119.4 mmol/L (98-107) H 11/17/17 04:07 Carbon Dioxide 20 mmol/L (22-30) L 11/17/17 04:07 Anion Gap 19 mmol/L 11/17/17 04:07 BUN 89 mg/dL (9-20) H 11/17/17 04:07 Creatinine 3.6 mg/dL (0.8-1.5) H 11/17/17 04:07 Estimated GFR 21 ml/min 11/17/17 04:07 BUN/Creatinine Ratio 25 % 11/17/17 04:07 Glucose 115 mg/dL (75-100) H 11/17/17 04:07 POC Glucose 86 (70-105) 11/16/17 05:38 Lactic Acid 1.80 mmol/L (0.7-2.0) 11/13/17 14:21 Calcium 8.0 mg/dL (8.4-10.2) L 11/17/17 04:07 Total Bilirubin 1.10 mg/dL (0.1-1.2) 11/11/17 23:20 AST 27 units/L (5-40) 11/11/17 23:20 ALT 40 units/L (7-56) 11/11/17 23:20 Alkaline Phosphatase 90 units/L (35-129) 11/11/17 23:20 Total Creatine Kinase 84 units/L (55-170) 11/12/17 20:03 CK-MB (CK-2) < 1.0 ng/mL (0.0-4.0) 11/12/17 20:03 CK-MB (CK-2) Rel Index 1.1 (0-4) 11/12/17 20:03 Troponin T 0.098 ng/mL (0.00-0.029) H 11/12/17 Unknown C-Reactive Protein 25.70 mg/dL (0.00-1.30) H 11/11/17 23:20 NT-Pro-B Natriuret Pep 792.4 pg/mL (0-900) 11/11/17 23:20 Total Protein 6.5 g/dL (6.3-8.2) 11/11/17 23:20 Albumin 2.5 g/dL (3.9-5) L 11/11/17 23:20 Albumin/Globulin Ratio 0.6 % 11/11/17 23:20 Triglycerides 86 mg/dL (2-149) 11/11/17 23:20 Cholesterol 82 mg/dL (50-199) 11/11/17 23:20 LDL Cholesterol Direct 42 mg/dL (50-130) L 11/11/17 23:20 HDL Cholesterol 24 mg/dL (40-59) L 11/11/17 23:20 Cholesterol/HDL Ratio 3.41 % 11/11/17 23:20 Lipase 30 units/L (13-60) 11/11/17 23:20 Urine Color Nicole (Yellow) 11/11/17 23:09 Urine Turbidity Cloudy (Clear) 11/11/17 23:09 Urine pH 5.0 (5.0-7.0) 11/11/17 23:09 Ur Specific [place] 1.025 (1.003-1.030) 11/11/17 23:09 Urine Protein 100 mg/dl mg/dL (Negative) 11/11/17 23:09 Urine Glucose (UA) 50 mg/dL (Negative) 11/11/17 23:09 Urine Ketones Neg mg/dL (Negative) 11/11/17 23:09 Urine Blood Neg (Negative) 11/11/17 23:09 Urine Nitrite Neg (Negative) 11/11/17 23:09 Urine Bilirubin Neg (Negative) 11/11/17 23:09 Urine Urobilinogen 4.0 mg/dL (<2.0) 11/11/17 23:09 Ur Leukocyte Esterase Neg (Negative) 11/11/17 23:09 Urine WBC (Auto) 5.0 /HPF (0.0-6.0) 11/11/17 23:09 Urine RBC (Auto) 4.0 /HPF (0.0-6.0) 11/11/17 23:09 Urine Bacteria (Auto) 3+ /HPF (Negative) 11/11/17 23:09 Amorphous Crystals 3+ 11/11/17 23:09 Hyaline Casts 76 /LPF 11/11/17 23:09 Urine Mucus 2+ /HPF 11/11/17 23:09
--- NOTE | 2017-11-17 16:24 | Gastroenterology Progress Note ---
Assessment and Plan 1.coffee-ground emesis 2.acute respiratory failure 3.septic shock 4.pneumonia 5.recent CVA (s/p CEA) -HGB 8.3-trending down -continue to monitor H/H and transfuse as needed -coffee ground drainage from OGT (150ml so far today)- continue OGT to LIS -hold blood thinning medications -currently HD stable -s/p EGD/PEG placement on 11/06 with no source of bleeding (PEG patent and intact with site w/o s/s of infection/bleeding) -will schedule for repeat EGD in am -Keep NPO -increase PPI to IV BID -continue supportive care -will follow Subjective Date of service: 11/17/17 Principal diagnosis: coffee-ground emesis Interval history: GI has been re-consulted on this patient for recurrent coffee-ground emesis. Patient remains intubated and sedated in ICU. Now off pressor support. OGT to LIS with coffee-ground colored drainage. No hematemesis or hematochezia. BM x 1 today with dark brown stool per nursing. Objective - Constitutional Vitals: Temp Pulse Resp BP Pulse Ox 98.5 F 83 22 128/72 100 11/17/17 12:00 11/17/17 16:15 11/17/17 15:00 11/17/17 16:15 11/17/17 16:15 General appearance: other (sedated on vent) - Respiratory Respiratory: bilateral: diminished - Cardiovascular Rhythm: regular Heart Sounds: Present: S1 & S2 - Gastrointestinal General gastrointestinal: Present: soft, non-distended, normal bowel sounds, other (+PEG) - Neurologic Neurological: other (unable to assess) - Labs CBC & Chem 7: 11/17/17 10:00 11/17/17 04:07 Labs: Laboratory Results - last 24 hr 11/16/17 11/17/17 11/17/17 16:37 04:07 10:00 WBC 14.7 H RBC 3.23 L Hgb 8.3 L Hct 28.1 L MCV 87 MCH 26 L MCHC 30 L RDW 18.8 H Plt Count 254 Add Manual Diff Complete Total Counted 100 Seg Neuts % (Manual) 75 H Band Neutrophils % 3.0 Lymphocytes % (Manual) 8.0 L Reactive Lymphs % (Man) 0 Monocytes % (Manual) 6.0 Eosinophils % (Manual) 3.0 Basophils % (Manual) 0 Metamyelocytes % 3.0 Myelocytes % 2 Promyelocytes % 0 Blast Cells % 0 Nucleated RBC % 1.0 H Seg Neutrophils # Man 11.0 H Band Neutrophils # 0.4 Lymphocytes # (Manual) 1.2 Abs React Lymphs (Man) 0.0 Monocytes # (Manual) 0.9 H Eosinophils # (Manual) 0.4 Basophils # (Manual) 0.0 Metamyelocytes # 0.4 Myelocytes # 0.2 Promyelocytes # 0.0 Blast Cells # 0.0 WBC Morphology Not Reportable Hypersegmented Neuts Not Reportable Hyposegmented Neuts Not Reportable Hypogranular Neuts Not Reportable Smudge Cells Not Reportable Toxic Granulation Not Reportable Toxic Vacuolation Not Reportable Dohle Bodies Not Reportable Pelger-Huet Anomaly Not Reportable Evangelina Rods Not Reportable Platelet Estimate Cons Clumped Platelets Not Reportable Plt Clumps, EDTA Not Reportable Large Platelets Few Giant Platelets Not Reportable Platelet Satelliting Not Reportable Plt Morphology Comment Not Reportable RBC Morphology Not Reportable Dimorphic RBCs Not Reportable Polychromasia Not Reportable Hypochromasia 1+ Poikilocytosis 1+ Anisocytosis 1+ Microcytosis Not Reportable Macrocytosis Not Reportable Spherocytes Not Reportable Pappenheimer Bodies Not Reportable Sickle Cells Not Reportable Target Cells Not Reportable Tear Drop Cells Few Ovalocytes Not Reportable Helmet Cells Not Reportable Dukes-[place] Bodies Not Reportable [place] Rings Not Reportable [place] Cells Not Reportable Bite Cells Not Reportable Crenated Cell Not Reportable Elliptocytes Not Reportable Acanthocytes (Spur) Few Rouleaux Not Reportable Hemoglobin C Crystals Not Reportable Schistocytes Not Reportable Malaria parasites Not Reportable [place] Bodies Not Reportable Hem Pathologist Commnt No Sodium 153 H 155 H Potassium 3.9 3.8 Chloride 117.3 H 119.4 H Carbon Dioxide 19 L 20 L Anion Gap 21 19 BUN 90 H 89 H Creatinine 3.9 H 3.6 H Estimated GFR 19 21 BUN/Creatinine Ratio 23 25 Glucose 111 H 115 H Calcium 8.1 L 8.0 L
--- NOTE | 2017-11-17 16:53 | Progress Note ---
Assessment and Plan Assessment and plan: Mr. Echavarria is a 67 yo man with a history of hypertension, CVA, OA and CAD who was admitted last month for large cva, causing Left hemiplegia, aphasia therefore peg was placed, dysphagia, and poor ability to clear his secretions, he was on abx for tracheobronchitis, he was dc to rehab, he was sent back to hospital for acute respiratory failure and and intubated Acute respiratory failure on MV; continue vent; it was conveyed to his daughter that he is not able to protect his airway well, therefore planned for trach, his daughter is still resistant to it -REcent CVA; continue secondary stroke ppx PNA/tracheobronchitis; cont abx, continue pulmonary toilet -Right Carotid artery stenosis and thrombosis post CEA surgery septic shock; weaned off pressors -Dyslipidemia; statin -Hypernatremia, continue free water and D5w -Acute metabolic encephalopathy: correct sodium level very carefully Dysphagia with aspiration; sp peg tube Coffee-ground material from peg tube; continue suction, keeping npo, per gi his presentation is not cw gi bleed Daughter wants to continue aggressive management, she believes he will recover, she is not interested in DNR or Hospice at this time CCT 33 minutes History Interval history: has now been weaned off pressors -continues to have coffee grounds suctioning from peg tube no seizures, Hospitalist Physical - Physical exam Narrative exam: General appearance: Present: mild distress, other (intubated on the vent) - EENT Eyes: Present: PERRL - Neck Neck: Present: supple - Respiratory Respiratory effort: labored Respiratory: bilateral: rales - Cardiovascular Rhythm: regular Heart Sounds: Present: S1 & S2 - Extremities Extremities: no ischemia - Abdominal General gastrointestinal: soft, non-tender - Integumentary Integumentary: Present: clear, warm, dry - Psychiatric Psychiatric: other (intubated) - Neurologic Neurologic: focal deficits (right hemiplegia) - Constitutional Vitals: Temp Pulse Resp BP Pulse Ox 98.5 F 83 25 H 128/72 100 11/17/17 16:00 11/17/17 16:15 11/17/17 16:00 11/17/17 16:15 11/17/17 16:15 General appearance: Present: no acute distress Results - Labs CBC & Chem 7: 11/17/17 10:00 11/17/17 04:07 Labs: Laboratory Last Values WBC 14.7 K/mm3 (4.5-11.0) H 11/17/17 10:00 RBC 3.23 M/mm3 (3.65-5.03) L 11/17/17 10:00 Hgb 8.3 gm/dl (11.8-15.2) L 11/17/17 10:00 Hct 28.1 % (35.5-45.6) L 11/17/17 10:00 MCV 87 fl (84-94) 11/17/17 10:00 MCH 26 pg (28-32) L 11/17/17 10:00 MCHC 30 % (32-34) L 11/17/17 10:00 RDW 18.8 % (13.2-15.2) H 11/17/17 10:00 Plt Count 254 K/mm3 (140-440) 11/17/17 10:00 Lymph % (Auto) 8.6 % (13.4-35.0) L 11/13/17 04:50 [place] % (Auto) 11.1 % (0.0-7.3) H 11/13/17 04:50 Eos % (Auto) 0.0 % (0.0-4.3) 11/13/17 04:50 Baso % (Auto) 0.2 % (0.0-1.8) 11/13/17 04:50 Lymph # 1.1 K/mm3 (1.2-5.4) L 11/13/17 04:50 [place] # 1.4 K/mm3 (0.0-0.8) H 11/13/17 04:50 Eos # 0.0 K/mm3 (0.0-0.4) 11/13/17 04:50 Baso # 0.0 K/mm3 (0.0-0.1) 11/13/17 04:50 Add Manual Diff Complete 11/17/17 10:00 Total Counted 100 11/17/17 10:00 Seg Neutrophils % 80.1 % (40.0-70.0) H 11/13/17 04:50 Seg Neuts % (Manual) 75 % (40.0-70.0) H 11/17/17 10:00 Band Neutrophils % 3.0 % 11/17/17 10:00 Lymphocytes % (Manual) 8.0 % (13.4-35.0) L 11/17/17 10:00 Reactive Lymphs % (Man) 0 % 11/17/17 10:00 Monocytes % (Manual) 6.0 % (0.0-7.3) 11/17/17 10:00 Eosinophils % (Manual) 3.0 % (0.0-4.3) 11/17/17 10:00 Basophils % (Manual) 0 % (0.0-1.8) 11/17/17 10:00 Metamyelocytes % 3.0 % 11/17/17 10:00 Myelocytes % 2 % 11/17/17 10:00 Promyelocytes % 0 % 11/17/17 10:00 Blast Cells % 0 % 11/17/17 10:00 Nucleated RBC % 1.0 % (0.0-0.9) H 11/17/17 10:00 Seg Neutrophils # 9.8 K/mm3 (1.8-7.7) H 11/13/17 04:50 Seg Neutrophils # Man 11.0 K/mm3 (1.8-7.7) H 11/17/17 10:00 Band Neutrophils # 0.4 K/mm3 11/17/17 10:00 Lymphocytes # (Manual) 1.2 K/mm3 (1.2-5.4) 11/17/17 10:00 Abs React Lymphs (Man) 0.0 K/mm3 11/17/17 10:00 Monocytes # (Manual) 0.9 K/mm3 (0.0-0.8) H 11/17/17 10:00 Eosinophils # (Manual) 0.4 K/mm3 (0.0-0.4) 11/17/17 10:00 Basophils # (Manual) 0.0 K/mm3 (0.0-0.1) 11/17/17 10:00 Metamyelocytes # 0.4 K/mm3 11/17/17 10:00 Myelocytes # 0.2 K/mm3 11/17/17 10:00 Promyelocytes # 0.0 K/mm3 11/17/17 10:00 Blast Cells # 0.0 K/mm3 11/17/17 10:00 WBC Morphology Not Reportable 11/17/17 10:00 Hypersegmented Neuts Not Reportable 11/17/17 10:00 Hyposegmented Neuts Not Reportable 11/17/17 10:00 Hypogranular Neuts Not Reportable 11/17/17 10:00 Smudge Cells Not Reportable 11/17/17 10:00 Toxic Granulation Not Reportable 11/17/17 10:00 Toxic Vacuolation Not Reportable 11/17/17 10:00 Dohle Bodies Not Reportable 11/17/17 10:00 Pelger-Huet Anomaly Not Reportable 11/17/17 10:00 Evangelina Rods Not Reportable 11/17/17 10:00 Platelet Estimate Cons 11/17/17 10:00 Clumped Platelets Not Reportable 11/17/17 10:00 Plt Clumps, EDTA Not Reportable 11/17/17 10:00 Large Platelets Few 11/17/17 10:00 Giant Platelets Not Reportable 11/17/17 10:00 Platelet Satelliting Not Reportable 11/17/17 10:00 Plt Morphology Comment Not Reportable 11/17/17 10:00 RBC Morphology Not Reportable 11/17/17 10:00 Dimorphic RBCs Not Reportable 11/17/17 10:00 Polychromasia Not Reportable 11/17/17 10:00 Hypochromasia 1+ 11/17/17 10:00 Poikilocytosis 1+ 11/17/17 10:00 Anisocytosis 1+ 11/17/17 10:00 Microcytosis Not Reportable 11/17/17 10:00 Macrocytosis Not Reportable 11/17/17 10:00 Spherocytes Not Reportable 11/17/17 10:00 Pappenheimer Bodies Not Reportable 11/17/17 10:00 Sickle Cells Not Reportable 11/17/17 10:00 Target Cells Not Reportable 11/17/17 10:00 Tear Drop Cells Few 11/17/17 10:00 Ovalocytes Not Reportable 11/17/17 10:00 Helmet Cells Not Reportable 11/17/17 10:00 [place] Bodies Not Reportable 11/17/17 10:00 [place] Rings Not Reportable 11/17/17 10:00 Lucretia Cells Not Reportable 11/17/17 10:00 Bite Cells Not Reportable 11/17/17 10:00 Crenated Cell Not Reportable 11/17/17 10:00 Elliptocytes Not Reportable 11/17/17 10:00 Acanthocytes (Spur) Few 11/17/17 10:00 Rouleaux Not Reportable 11/17/17 10:00 Hemoglobin C Crystals Not Reportable 11/17/17 10:00 Schistocytes Not Reportable 11/17/17 10:00 Malaria parasites Not Reportable 11/17/17 10:00 [place] Bodies Not Reportable 11/17/17 10:00 Hem Pathologist Commnt No 11/17/17 10:00 PT 16.7 Sec. (12.2-14.9) H 11/12/17 00:23 INR 1.28 (0.87-1.13) H 11/12/17 00:23 APTT 31.7 Sec. (24.2-36.6) 11/12/17 00:23 POC ABG pH 7.409 (7.35-7.45) 11/16/17 05:17 POC ABG pCO2 31.5 (35-45) L 11/16/17 05:17 POC ABG pO2 122 (80-105) H 11/16/17 05:17 POC ABG HCO3 19.9 11/16/17 05:17 POC ABG Total CO2 21 11/16/17 05:17 POC ABG O2 Sat 99 11/16/17 05:17 POC ABG Base Excess -5 11/16/17 05:17 FiO2 30 % 11/16/17 05:17 Sodium 155 mmol/L (137-145) H 11/17/17 04:07 Potassium 3.8 mmol/L (3.6-5.0) 11/17/17 04:07 Chloride 119.4 mmol/L (98-107) H 11/17/17 04:07 Carbon Dioxide 20 mmol/L (22-30) L 11/17/17 04:07 Anion Gap 19 mmol/L 11/17/17 04:07 BUN 89 mg/dL (9-20) H 11/17/17 04:07 Creatinine 3.6 mg/dL (0.8-1.5) H 11/17/17 04:07 Estimated GFR 21 ml/min 11/17/17 04:07 BUN/Creatinine Ratio 25 % 11/17/17 04:07 Glucose 115 mg/dL (75-100) H 11/17/17 04:07 POC Glucose 86 (70-105) 11/16/17 05:38 Lactic Acid 1.80 mmol/L (0.7-2.0) 11/13/17 14:21 Calcium 8.0 mg/dL (8.4-10.2) L 11/17/17 04:07 Total Bilirubin 1.10 mg/dL (0.1-1.2) 11/11/17 23:20 AST 27 units/L (5-40) 11/11/17 23:20 ALT 40 units/L (7-56) 11/11/17 23:20 Alkaline Phosphatase 90 units/L (35-129) 11/11/17 23:20 Total Creatine Kinase 84 units/L (55-170) 11/12/17 20:03 CK-MB (CK-2) < 1.0 ng/mL (0.0-4.0) 11/12/17 20:03 CK-MB (CK-2) Rel Index 1.1 (0-4) 11/12/17 20:03 Troponin T 0.098 ng/mL (0.00-0.029) H 11/12/17 Unknown C-Reactive Protein 25.70 mg/dL (0.00-1.30) H 11/11/17 23:20 NT-Pro-B Natriuret Pep 792.4 pg/mL (0-900) 11/11/17 23:20 Total Protein 6.5 g/dL (6.3-8.2) 11/11/17 23:20 Albumin 2.5 g/dL (3.9-5) L 11/11/17 23:20 Albumin/Globulin Ratio 0.6 % 11/11/17 23:20 Triglycerides 86 mg/dL (2-149) 11/11/17 23:20 Cholesterol 82 mg/dL (50-199) 11/11/17 23:20 LDL Cholesterol Direct 42 mg/dL (50-130) L 11/11/17 23:20 HDL Cholesterol 24 mg/dL (40-59) L 11/11/17 23:20 Cholesterol/HDL Ratio 3.41 % 11/11/17 23:20 Lipase 30 units/L (13-60) 11/11/17 23:20 Urine Color Nicole (Yellow) 11/11/17 23:09 Urine Turbidity Cloudy (Clear) 11/11/17 23:09 Urine pH 5.0 (5.0-7.0) 11/11/17 23:09 Ur Specific [place] 1.025 (1.003-1.030) 11/11/17 23:09 Urine Protein 100 mg/dl mg/dL (Negative) 11/11/17 23:09 Urine Glucose (UA) 50 mg/dL (Negative) 11/11/17 23:09 Urine Ketones Neg mg/dL (Negative) 11/11/17 23:09 Urine Blood Neg (Negative) 11/11/17 23:09 Urine Nitrite Neg (Negative) 11/11/17 23:09 Urine Bilirubin Neg (Negative) 11/11/17 23:09 Urine Urobilinogen 4.0 mg/dL (<2.0) 11/11/17 23:09 Ur Leukocyte Esterase Neg (Negative) 11/11/17 23:09 Urine WBC (Auto) 5.0 /HPF (0.0-6.0) 11/11/17 23:09 Urine RBC (Auto) 4.0 /HPF (0.0-6.0) 11/11/17 23:09 Urine Bacteria (Auto) 3+ /HPF (Negative) 11/11/17 23:09 Amorphous Crystals 3+ 11/11/17 23:09 Hyaline Casts 76 /LPF 11/11/17 23:09 Urine Mucus 2+ /HPF 11/11/17 23:09
--- NOTE | 2017-11-17 18:32 | Progress Note ---
Assessment and Plan - Patient Problems (1) Ventilator dependence Current Visit: Yes Status: Acute (2) Acute respiratory failure with hypoxemia Current Visit: Yes Status: Acute (3) Respiratory failure Current Visit: No Status: Acute Subjective Date of service: 11/17/17 Principal diagnosis: coffee-ground emesis Interval history: Pt. resting comfortably, sedated. Objective - Constitutional Vitals: Vital Signs - 12hr 11/17/17 11/17/17 11/17/17 07:00 08:00 08:56 Temperature 98.5 F Pulse Rate 88 84 88 Pulse Rate [ 89 Right From Monitor] Respiratory 21 19 Rate Blood Pressure 123/75 128/74 123/77 O2 Sat by Pulse 100 100 100 Oximetry 11/17/17 11/17/17 11/17/17 09:00 10:00 11:00 Temperature Pulse Rate 86 76 81 Pulse Rate [ Right From Monitor] Respiratory 15 16 26 H Rate Blood Pressure 130/77 124/69 134/76 O2 Sat by Pulse 100 100 99 Oximetry 11/17/17 11/17/17 11/17/17 12:00 12:29 13:00 Temperature 98.5 F Pulse Rate 77 81 89 Pulse Rate [ 89 Right From Monitor] Respiratory 23 28 H Rate Blood Pressure 131/71 129/69 148/85 O2 Sat by Pulse 99 100 99 Oximetry 11/17/17 11/17/17 11/17/17 14:00 15:00 16:00 Temperature 98.5 F Pulse Rate 92 H 85 79 Pulse Rate [ 89 Right From Monitor] Respiratory 27 H 22 25 H Rate Blood Pressure 126/87 137/77 128/72 O2 Sat by Pulse 100 97 Oximetry 11/17/17 11/17/17 11/17/17 16:15 17:01 18:00 Temperature Pulse Rate 83 93 H 80 Pulse Rate [ Right From Monitor] Respiratory 18 19 Rate Blood Pressure 128/72 142/73 137/64 O2 Sat by Pulse 100 98 99 Oximetry General appearance: Present: no acute distress, other (sedated) - EENT Eyes: PERRL ENT: other (ET in place) Ears: bilateral: other (pinna w/o breakdown) - Neck Neck: supple, other (trachea midline) - Respiratory Respiratory effort: other (on vent. equal excursion) - Breasts Breasts: deferred - Cardiovascular Rhythm: regular Heart Sounds: Present: S1 & S2 Extremity abnormal: edema - Gastrointestinal General gastrointestinal: Present: soft, non-tender Rectal Exam: deferred - Genitourinary Male genitourinary: deferred - Integumentary Integumentary: clear, warm, dry - Musculoskeletal Musculoskeletal: other (sedated) - Neurologic Neurologic: other (sedated) - Psychiatric Psychiatric: other (sedated) - Labs CBC & Chem 7: 11/17/17 10:00 11/17/17 04:07 Labs: Abnormal lab results 11/17/17 11/17/17 Range/Units 04:07 10:00 WBC 14.7 H (4.5-11.0) K/mm3 RBC 3.23 L (3.65-5.03) M/mm3 Hgb 8.3 L (11.8-15.2) gm/dl Hct 28.1 L (35.5-45.6) % MCH 26 L (28-32) pg MCHC 30 L (32-34) % RDW 18.8 H (13.2-15.2) % Seg Neuts % (Manual) 75 H (40.0-70.0) % Lymphocytes % (Manual) 8.0 L (13.4-35.0) % Nucleated RBC % 1.0 H (0.0-0.9) % Seg Neutrophils # Man 11.0 H (1.8-7.7) K/mm3 Monocytes # (Manual) 0.9 H (0.0-0.8) K/mm3 Sodium 155 H (137-145) mmol/L Chloride 119.4 H (98-107) mmol/L Carbon Dioxide 20 L (22-30) mmol/L BUN 89 H (9-20) mg/dL Creatinine 3.6 H (0.8-1.5) mg/dL Glucose 115 H (75-100) mg/dL Calcium 8.0 L (8.4-10.2) mg/dL
[2017-11-17] MEDS: PROTONIX IV SCH (21:20)
--- NOTE | 2017-11-17 22:04 | Progress Note ---
Assessment and Plan Assessment: 1) Sepsis with transient septic shock: shock resolved, fever resolved, leukocytosis up. Etiology most likely VAP/post-obstructive pneumonia. CRP=25 2) VAP vs post-obstructive pneumonia (mucous mugging) -initial sputum 10/10 Klebsiella -sputum 11/12 usual respiratory estela -CXR showed increased perihilar alveolar density >RLL than LLL. -CTA showed complete atelectasis of the LLL with mediatinal shift to the left due to blockage of the left main bronchus by ETT. 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, placement of recent PEG tube with prolonged recent admission from 10/04-/11/10/17 4) Acute encephalopathy 5) Acute Respiratory failure 6) DARYA 7) Hypernatremia Plan: -continue [id number] -needs trach -monitor leukocytosis Thank you for your consultation, will follow up with you. Olga Mercedes MD Infectious Diseases Specialist [facility] ([facility]) M [phone] O [phone] Subjective Date of service: 11/17/17 Principal diagnosis: coffee-ground emesis Interval history: Remains on the vent on CPAP, fever resolved, no pressors Microbiology: Blood cultures: 10/24 EQUIPMENT LEAD 10/29 neg 11/10 neg 11/12 ngtd Urine cultures: Respiratory cultures: 10/10 Klebsiella 11/12 usual resp estela Current Antimicrobials: Zosyn 11/13 Previous Antimicrobials: Levaquin Objective - Exam Narrative Exam: General appearance: sedated on the vent non verbal on CPAP Eyes: anicteric sclerae, moist conjunctivae; no lid-lag; PERRLA HENT: Atraumatic; oropharynx+ETT +OGT Neck: Trachea midline; supple, no thyromegaly or lymphadenopathy Lungs: scattered rhonchi CV: tachy Abdomen: Soft, distended +PEG Extremities: winnie arms/legs edema Skin: Normal temperature, turgor and texture; no rash, ulcers or subcutaneous nodules Psych: sedated Neuro: sedated Lines: condom cath - Constitutional Vitals: Vital Signs Temp Pulse Resp BP Pulse Ox 99.2 F 76 19 140/82 100 11/17/17 20:00 11/17/17 20:00 11/17/17 20:00 11/17/17 20:00 11/17/17 20:00 Temperature -Last 24 Hours Temperature 99.2 F Temperature 98.5 F Temperature 98.5 F Temperature 98.5 F Temperature 98.4 F Temperature 98.5 F - Labs CBC & Chem 7: 11/17/17 10:00 11/17/17 04:07 Labs: Abnormal lab results 11/17/17 11/17/17 Range/Units 04:07 10:00 WBC 14.7 H (4.5-11.0) K/mm3 RBC 3.23 L (3.65-5.03) M/mm3 Hgb 8.3 L (11.8-15.2) gm/dl Hct 28.1 L (35.5-45.6) % MCH 26 L (28-32) pg MCHC 30 L (32-34) % RDW 18.8 H (13.2-15.2) % Seg Neuts % (Manual) 75 H (40.0-70.0) % Lymphocytes % (Manual) 8.0 L (13.4-35.0) % Nucleated RBC % 1.0 H (0.0-0.9) % Seg Neutrophils # Man 11.0 H (1.8-7.7) K/mm3 Monocytes # (Manual) 0.9 H (0.0-0.8) K/mm3 Sodium 155 H (137-145) mmol/L Chloride 119.4 H (98-107) mmol/L Carbon Dioxide 20 L (22-30) mmol/L BUN 89 H (9-20) mg/dL Creatinine 3.6 H (0.8-1.5) mg/dL Glucose 115 H (75-100) mg/dL Calcium 8.0 L (8.4-10.2) mg/dL
[2017-11-18] MEDS: D5W 1,000 ML IV SCH ×2 (02:04→11:05)
--- NOTE | 2017-11-18 03:51 | XRay Report ---
FINAL REPORT PROCEDURE: XR ABDOMEN 1V AP TECHNIQUE: Abdominal radiograph, single supine AP view. HISTORY: abdominal distension COMPARISON: No prior studies are available for comparison. FINDINGS: Bowel gas pattern:Nonobstructive. Masses or calcifications:None. Bony structures:No significant abnormality. Other:A nasogastric tube ends in the mid stomach. There is a PEG tube identified.. IMPRESSION: Nasogastric tube ends in the stomach. A PEG tube is identified. Bowel gas pattern is nonobstructive.
[2017-11-18 05:17] LABS: Hematocrit 26.3 % (35.5-45.6); Hemoglobin 8.1 gm/dl (11.8-15.2); Mean Corpuscular HGB Conc 31 % (32-34); Mean Corpuscular Volume 84 fl (84-94); Platelet Count 317 K/mm3 (140-440); Red Blood Count 3.13 M/mm3 (3.65-5.03); Red Cell Distribution Width 18.6 % (13.2-15.2)
[2017-11-18 05:24] LABS: Mean Corpuscular Hemoglobin 26 pg (28-32)
[2017-11-18 05:27] LABS: Calcium 7.9 mg/dL (8.4-10.2)
[2017-11-18 05:51] LABS: INR 1.3 (0.87-1.13)
[2017-11-18 06:25] LABS: Band Neutrophils # (Manual) 0.6 K/mm3; Basophils % (Manual) 0 % (0.0-1.8); Myelocytes # (Manual) 0.3 K/mm3; Total Cells Counted 100
[2017-11-18 06:26] LABS: Anisocytosis 1+; Hypochromasia 1+; Ovalocytes 1+; Poikilocytosis 1+; Stomatocytes Few
--- NOTE | 2017-11-18 08:46 | Progress Note ---
Assessment and Plan Acute respiratory failure. multifactorial, sepsis, aspiration pneumonia, mucous plugging GI bleeding. Found to coffee ground resident this morning. Aspirin was discontinued immediately previously on ASA/Plavix Sepsis,due to the above. On antibiotics, ID consulted AMS. Probably combination of sepsis, metabolic encephalopathy from prior brain injury Stroke Hypernatremia- on D5W,free water replacement Acute kidney injury. Worsening creatinine Recommendations Increase D5W gtt Increased by mouth water sips Nephrology f/u off aspirin, monitor H&H, PPI TX GI stated no EDG, wi manage concervatively Follow-up WBC monitoring ,may still need bronch for LLL atelectasis.Will ask family for consent, see if they agree. if not continue agrresive toilette Patient was scheduled for tracheotomy, but patient daughter declined tracheotomy. Have expectation is that he will get better without this procedure I do not anticipate the patient will be weaned off without trach. Maintain extubation precautions No family available for case discussion. Will leave message for case discussion Critical care time was 31 minutes of [id number] evaluation and coordination of care Subjective Date of service: 11/18/17 Principal diagnosis: coffee-ground emesis Objective Vital Signs - 12hr 11/17/17 11/17/17 11/17/17 21:00 22:00 23:00 Temperature Pulse Rate 84 78 75 Pulse Rate [ Right From Monitor] Respiratory 20 20 20 Rate Blood Pressure 137/77 123/70 123/69 O2 Sat by Pulse 100 100 100 Oximetry 11/17/17 11/17/17 11/18/17 23:43 23:57 00:00 Temperature 98.5 F Pulse Rate 99 H 84 87 Pulse Rate [ 89 Right From Monitor] Respiratory 20 21 Rate Blood Pressure 121/75 123/69 127/73 O2 Sat by Pulse 100 100 100 Oximetry 11/18/17 11/18/17 11/18/17 01:00 02:00 03:00 Temperature Pulse Rate 67 71 86 Pulse Rate [ Right From Monitor] Respiratory 21 17 20 Rate Blood Pressure 130/71 135/76 163/89 O2 Sat by Pulse 100 100 100 Oximetry 11/18/17 11/18/17 11/18/17 04:00 05:00 06:00 Temperature 98.7 F Pulse Rate 76 99 H 77 Pulse Rate [ 84 Right From Monitor] Respiratory 18 24 20 Rate Blood Pressure 152/83 136/85 123/74 O2 Sat by Pulse 100 99 100 Oximetry 11/18/17 11/18/17 11/18/17 07:00 08:00 08:01 Temperature 98.6 F Pulse Rate 76 94 H Pulse Rate [ Right From Monitor] Respiratory 18 21 Rate Blood Pressure 134/78 154/91 O2 Sat by Pulse 100 100 Oximetry Constitutional: lethargic, other (intubated) Eyes: non-icteric ENT: oropharynx moist, other (ETT at 24 cm) Neck: supple, no JVD Ascultation: Bilateral: rhonchi (sporadic) Cardiovascular: regular rate and rhythm, other (tachycardic) Gastrointestinal: normoactive bowel sounds, non-distended Integumentary: normal Extremities: no cyanosis, no edema, other (RT femoral line in place) Neurologic: unable to assess (opens eyes spontaneously but does not follow commands . ) CBC and BMP: 11/18/17 04:34 11/18/17 04:34 ABG, PT/INR, D-dimer: ABG POC ABG pH 7.409 (7.35-7.45) 11/16/17 05:17 POC ABG pCO2 31.5 (35-45) L 11/16/17 05:17 POC ABG pO2 122 (80-105) H 11/16/17 05:17 POC ABG HCO3 19.9 11/16/17 05:17 POC ABG Total CO2 21 11/16/17 05:17 POC ABG O2 Sat 99 11/16/17 05:17 PT/INR, D-dimer PT 16.7 Sec. (12.2-14.9) H 11/18/17 04:34 INR 1.30 (0.87-1.13) H 11/18/17 04:34 Abnormal lab findings: Abnormal Labs 11/11/17 11/11/17 11/11/17 23:18 23:20 23:20 WBC RBC Hgb 10.4 L Hct 32.6 L D MCH 27 L MCHC RDW 17.4 H Plt Count 105 L Lymph % (Auto) [place] % (Auto) Lymph # [place] # Seg Neutrophils % Seg Neuts % (Manual) Lymphocytes % (Manual) 8.0 L Nucleated RBC % 1.0 H Seg Neutrophils # Seg Neutrophils # Man Lymphocytes # (Manual) 0.7 L Monocytes # (Manual) PT INR POC ABG pH 7.550 H POC ABG pCO2 31.6 L POC ABG pO2 Sodium 146 H Potassium Chloride Carbon Dioxide BUN 26 H Creatinine 1.7 H D Glucose 133 H Lactic Acid Calcium Troponin T 0.117 H* C-Reactive Protein Albumin 2.5 L LDL Cholesterol Direct 42 L HDL Cholesterol 24 L 11/11/17 11/12/17 11/12/17 23:20 00:23 00:23 WBC RBC Hgb Hct MCH MCHC RDW Plt Count Lymph % (Auto) [place] % (Auto) Lymph # [place] # Seg Neutrophils % Seg Neuts % (Manual) Lymphocytes % (Manual) Nucleated RBC % Seg Neutrophils # Seg Neutrophils # Man Lymphocytes # (Manual) Monocytes # (Manual) PT 16.7 H INR 1.28 H POC ABG pH POC ABG pCO2 POC ABG pO2 Sodium Potassium Chloride Carbon Dioxide BUN Creatinine Glucose Lactic Acid 3.20 H* Calcium Troponin T C-Reactive Protein 25.70 H Albumin LDL Cholesterol Direct HDL Cholesterol 11/12/17 11/12/17 11/12/17 00:46 01:27 01:27 WBC RBC Hgb Hct MCH MCHC RDW Plt Count Lymph % (Auto) [place] % (Auto) Lymph # [place] # Seg Neutrophils % Seg Neuts % (Manual) Lymphocytes % (Manual) Nucleated RBC % Seg Neutrophils # Seg Neutrophils # Man Lymphocytes # (Manual) Monocytes # (Manual) PT INR POC ABG pH 7.495 H POC ABG pCO2 32.0 L POC ABG pO2 64 L Sodium Potassium Chloride Carbon Dioxide BUN Creatinine Glucose Lactic Acid 3.70 H* Calcium Troponin T 0.096 H C-Reactive Protein Albumin LDL Cholesterol Direct HDL Cholesterol 11/12/17 11/12/17 11/12/17 03:21 04:50 06:27 WBC RBC Hgb Hct MCH MCHC RDW Plt Count Lymph % (Auto) [place] % (Auto) Lymph # [place] # Seg Neutrophils % Seg Neuts % (Manual) Lymphocytes % (Manual) Nucleated RBC % Seg Neutrophils # Seg Neutrophils # Man Lymphocytes # (Manual) Monocytes # (Manual) PT INR POC ABG pH POC ABG pCO2 POC ABG pO2 109 H Sodium Potassium Chloride Carbon Dioxide BUN Creatinine Glucose Lactic Acid 3.80 H* 2.20 H* Calcium Troponin T C-Reactive Protein Albumin LDL Cholesterol Direct HDL Cholesterol 11/12/17 11/12/17 11/12/17 09:24 09:24 09:24 WBC RBC Hgb 10.4 L Hct 33.4 L MCH MCHC RDW Plt Count Lymph % (Auto) [place] % (Auto) Lymph # [place] # Seg Neutrophils % Seg Neuts % (Manual) Lymphocytes % (Manual) Nucleated RBC % Seg Neutrophils # Seg Neutrophils # Man Lymphocytes # (Manual) Monocytes # (Manual) PT INR POC ABG pH POC ABG pCO2 POC ABG pO2 Sodium Potassium Chloride Carbon Dioxide BUN Creatinine Glucose Lactic Acid 2.90 H* Calcium Troponin T 0.091 H C-Reactive Protein Albumin LDL Cholesterol Direct HDL Cholesterol 11/12/17 11/12/17 11/12/17 12:56 20:03 Unknown WBC RBC Hgb Hct MCH MCHC RDW Plt Count Lymph % (Auto) [place] % (Auto) Lymph # [place] # Seg Neutrophils % Seg Neuts % (Manual) Lymphocytes % (Manual) Nucleated RBC % Seg Neutrophils # Seg Neutrophils # Man Lymphocytes # (Manual) Monocytes # (Manual) PT INR POC ABG pH POC ABG pCO2 POC ABG pO2 Sodium Potassium Chloride Carbon Dioxide BUN Creatinine Glucose Lactic Acid 3.60 H* Calcium Troponin T 0.102 H* 0.156 H* D C-Reactive Protein Albumin LDL Cholesterol Direct HDL Cholesterol 11/12/17 11/13/17 11/13/17 Unknown 04:50 04:50 WBC 12.2 H RBC 3.51 L Hgb 9.3 L Hct 30.1 L MCH 26 L MCHC 31 L RDW 18.0 H Plt Count 128 L Lymph % (Auto) 8.6 L [place] % (Auto) 11.1 H Lymph # 1.1 L [place] # 1.4 H Seg Neutrophils % 80.1 H Seg Neuts % (Manual) Lymphocytes % (Manual) Nucleated RBC % Seg Neutrophils # 9.8 H Seg Neutrophils # Man Lymphocytes # (Manual) Monocytes # (Manual) PT INR POC ABG pH POC ABG pCO2 POC ABG pO2 Sodium 149 H Potassium 5.1 H Chloride 114.4 H Carbon Dioxide 18 L BUN 52 H Creatinine 3.3 H D Glucose 129 H Lactic Acid Calcium 7.9 L Troponin T 0.098 H C-Reactive Protein Albumin LDL Cholesterol Direct HDL Cholesterol 11/13/17 11/13/17 11/14/17 04:51 09:34 04:21 WBC RBC Hgb Hct MCH MCHC RDW Plt Count Lymph % (Auto) [place] % (Auto) Lymph # [place] # Seg Neutrophils % Seg Neuts % (Manual) Lymphocytes % (Manual) Nucleated RBC % Seg Neutrophils # Seg Neutrophils # Man Lymphocytes # (Manual) Monocytes # (Manual) PT INR POC ABG pH POC ABG pCO2 30.1 L 29.8 L POC ABG pO2 135 H Sodium Potassium Chloride Carbon Dioxide BUN Creatinine Glucose Lactic Acid 2.10 H* Calcium Troponin T C-Reactive Protein Albumin LDL Cholesterol Direct HDL Cholesterol 11/15/17 11/15/17 11/16/17 04:52 15:50 05:17 WBC RBC Hgb Hct MCH MCHC RDW Plt Count Lymph % (Auto) [place] % (Auto) Lymph # [place] # Seg Neutrophils % Seg Neuts % (Manual) Lymphocytes % (Manual) Nucleated RBC % Seg Neutrophils # Seg Neutrophils # Man Lymphocytes # (Manual) Monocytes # (Manual) PT INR POC ABG pH POC ABG pCO2 29.5 L 31.5 L POC ABG pO2 115 H 122 H Sodium 154 H Potassium Chloride 117.9 H Carbon Dioxide 19 L BUN 87 H Creatinine 4.1 H Glucose Lactic Acid Calcium 8.1 L Troponin T C-Reactive Protein Albumin LDL Cholesterol Direct HDL Cholesterol 11/16/17 11/17/17 11/17/17 16:37 04:07 10:00 WBC 14.7 H RBC 3.23 L Hgb 8.3 L Hct 28.1 L MCH 26 L MCHC 30 L RDW 18.8 H Plt Count Lymph % (Auto) [place] % (Auto) Lymph # [place] # Seg Neutrophils % Seg Neuts % (Manual) 75 H Lymphocytes % (Manual) 8.0 L Nucleated RBC % 1.0 H Seg Neutrophils # Seg Neutrophils # Man 11.0 H Lymphocytes # (Manual) Monocytes # (Manual) 0.9 H PT INR POC ABG pH POC ABG pCO2 POC ABG pO2 Sodium 153 H 155 H Potassium Chloride 117.3 H 119.4 H Carbon Dioxide 19 L 20 L BUN 90 H 89 H Creatinine 3.9 H 3.6 H Glucose 111 H 115 H Lactic Acid Calcium 8.1 L 8.0 L Troponin T C-Reactive Protein Albumin LDL Cholesterol Direct HDL Cholesterol 11/18/17 11/18/17 11/18/17 04:34 04:34 04:34 WBC 15.5 H RBC 3.13 L Hgb 8.1 L Hct 26.3 L MCH 26 L MCHC 31 L RDW 18.6 H Plt Count Lymph % (Auto) [place] % (Auto) Lymph # [place] # Seg Neutrophils % Seg Neuts % (Manual) 81.0 H Lymphocytes % (Manual) 7.0 L Nucleated RBC % 1.0 H Seg Neutrophils # Seg Neutrophils # Man 12.6 H Lymphocytes # (Manual) 1.1 L Monocytes # (Manual) PT 16.7 H INR 1.30 H POC ABG pH POC ABG pCO2 POC ABG pO2 Sodium 155 H Potassium 3.2 L Chloride 121.0 H Carbon Dioxide 20 L BUN 74 H Creatinine 2.9 H Glucose 126 H Lactic Acid Calcium 7.9 L Troponin T C-Reactive Protein Albumin LDL Cholesterol Direct HDL Cholesterol
[2017-11-18] MEDS: SODIUM CHLORIDE FLUSH SYRINGE 10 ML IV SCH ×2 (09:54→09:55)
[2017-11-18] MEDS: PROTONIX IV SCH ×2 (09:55→21:22)
--- NOTE | 2017-11-18 10:49 | Progress Note ---
Assessment and Plan Assessment and plan: Mr. 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 He had a Carotid doppler with right ICA 50-79% stenosis; however, CTA of the neck revealed 80% stenosis of the right ICA with probable 50 % stenosis of the origin of the right commmon carotid artery. The TIA was thought to be due to the Carotid stenosis which was disheartening since he was on Aspirin and plavix. He was scheduled for right CEA but needed Cardiac clearance. He underwent stress test on 10/05/17. Patient underwent right carotid enarterectomy on 10/09/17. Following the surgery, he developed recurrent left sided weakness/hemiparesis was taken to OR again on 10/10/17 for Open Thrombectomy of Right Internal Carotid Artery and Injection of TPA into the Distal Artery. CT head obtained on 10/12/17 showed massive right cerebral hemisphere acute CVA with midline shift. He was discharged on 11/10/17 to [facility] but returned to ED on 11/12/17 for sob. He was subsequently intubated on admission. -Acute hypoxic respiratory failure due to Pneumonia: continue MV, daily weaning attempt -Leukocyotosis with Sepsis with transient septic shock, poa: shock resolved, continue abx, ID is following -Aspiration pneumonia, with mucus plugging/post obstructive pna poa: Cryptologic Support Specialist is following, following sunction protocols -Acute encephalopathy: treat supportively -Hypernatremia: treat with free water, monitor bmp closely -Hypokalemia: replace and monitor closely -ARF vasomotor nephropathy, poa: IV fluids, monitor bmp closely -Dysphagia with aspiration; sp peg tube -Acute on chronic blood loss anemia w/Coffee-ground material from peg tube: GI is following, treat with ppi iv bid -Advance care planning: full code Daughter wants to continue aggressive management, he was not interested in DNR or Hospice or tracheostomy at this time per Chart CCT 31 minutes History Interval history: Patient was seen and examined. Follow-up on current diagnosis of respiratory failure. Overnight uneventful. Intubated. Imaging, nursing note, chart, labs and old chart reviewed. Hospitalist Physical - Physical exam Narrative exam: GEN: ill appearing, not sedated, on MV HEENT: NCAT, pupils reactive, anicteric, ETT in place, NGT in place NECK: supple, no adenopathy, no thyromegaly, no JVD CVS/HEART: RRR, normal S1S2, pulses present bilaterally CHEST/LUNGS: Symmetrical chest expansion, good air entry bilaterally GI/Abdomen: soft, distended, pbs, +peg tube in place /Bladder: no suprapubic tenderness, no CVA or paraspinal tenderness EXT/Skin: generalized edema x 4 MSK: left hemiparesis Neuro: CN 2-12 unable to access, doesn't follow commands Psych: confused - Constitutional Vitals: Temp Pulse Resp BP Pulse Ox 98.6 F 83 28 H 125/74 100 11/18/17 08:00 11/18/17 10:00 11/18/17 10:00 11/18/17 10:00 11/18/17 10:00 General appearance: Present: no acute distress Results - Labs CBC & Chem 7: 11/18/17 04:34 11/18/17 04:34 Labs: Laboratory Last Values WBC 15.5 K/mm3 (4.5-11.0) H 11/18/17 04:34 RBC 3.13 M/mm3 (3.65-5.03) L 11/18/17 04:34 Hgb 8.1 gm/dl (11.8-15.2) L 11/18/17 04:34 Hct 26.3 % (35.5-45.6) L 11/18/17 04:34 MCV 84 fl (84-94) 11/18/17 04:34 MCH 26 pg (28-32) L 11/18/17 04:34 MCHC 31 % (32-34) L 11/18/17 04:34 RDW 18.6 % (13.2-15.2) H 11/18/17 04:34 Plt Count 317 K/mm3 (140-440) 11/18/17 04:34 Lymph % (Auto) 8.6 % (13.4-35.0) L 11/13/17 04:50 [place] % (Auto) 11.1 % (0.0-7.3) H 11/13/17 04:50 Eos % (Auto) 0.0 % (0.0-4.3) 11/13/17 04:50 Baso % (Auto) 0.2 % (0.0-1.8) 11/13/17 04:50 Lymph # 1.1 K/mm3 (1.2-5.4) L 11/13/17 04:50 [place] # 1.4 K/mm3 (0.0-0.8) H 11/13/17 04:50 Eos # 0.0 K/mm3 (0.0-0.4) 11/13/17 04:50 Baso # 0.0 K/mm3 (0.0-0.1) 11/13/17 04:50 Add Manual Diff Complete 11/18/17 04:34 Total Counted 100 11/18/17 04:34 Seg Neutrophils % 80.1 % (40.0-70.0) H 11/13/17 04:50 Seg Neuts % (Manual) 81.0 % (40.0-70.0) H 11/18/17 04:34 Band Neutrophils % 4.0 % 11/18/17 04:34 Lymphocytes % (Manual) 7.0 % (13.4-35.0) L 11/18/17 04:34 Reactive Lymphs % (Man) 0 % 11/18/17 04:34 Monocytes % (Manual) 2.0 % (0.0-7.3) 11/18/17 04:34 Eosinophils % (Manual) 1.0 % (0.0-4.3) 11/18/17 04:34 Basophils % (Manual) 0 % (0.0-1.8) 11/18/17 04:34 Metamyelocytes % 3.0 % 11/18/17 04:34 Myelocytes % 2.0 % 11/18/17 04:34 Promyelocytes % 0 % 11/18/17 04:34 Blast Cells % 0 % 11/18/17 04:34 Nucleated RBC % 1.0 % (0.0-0.9) H 11/18/17 04:34 Seg Neutrophils # 9.8 K/mm3 (1.8-7.7) H 11/13/17 04:50 Seg Neutrophils # Man 12.6 K/mm3 (1.8-7.7) H 11/18/17 04:34 Band Neutrophils # 0.6 K/mm3 11/18/17 04:34 Lymphocytes # (Manual) 1.1 K/mm3 (1.2-5.4) L 11/18/17 04:34 Abs React Lymphs (Man) 0.0 K/mm3 11/18/17 04:34 Monocytes # (Manual) 0.3 K/mm3 (0.0-0.8) 11/18/17 04:34 Eosinophils # (Manual) 0.2 K/mm3 (0.0-0.4) 11/18/17 04:34 Basophils # (Manual) 0.0 K/mm3 (0.0-0.1) 11/18/17 04:34 Metamyelocytes # 0.5 K/mm3 11/18/17 04:34 Myelocytes # 0.3 K/mm3 11/18/17 04:34 Promyelocytes # 0.0 K/mm3 11/18/17 04:34 Blast Cells # 0.0 K/mm3 11/18/17 04:34 WBC Morphology Not Reportable 11/18/17 04:34 Hypersegmented Neuts Not Reportable 11/18/17 04:34 Hyposegmented Neuts Not Reportable 11/18/17 04:34 Hypogranular Neuts Not Reportable 11/18/17 04:34 Smudge Cells Not Reportable 11/18/17 04:34 Toxic Granulation Not Reportable 11/18/17 04:34 Toxic Vacuolation Not Reportable 11/18/17 04:34 Dohle Bodies Not Reportable 11/18/17 04:34 Pelger-Huet Anomaly Not Reportable 11/18/17 04:34 Evangelina Rods Not Reportable 11/18/17 04:34 Platelet Estimate Appears normal 11/18/17 04:34 Clumped Platelets Not Reportable 11/18/17 04:34 Plt Clumps, EDTA Not Reportable 11/18/17 04:34 Large Platelets Not Reportable 11/18/17 04:34 Giant Platelets Not Reportable 11/18/17 04:34 Platelet Satelliting Not Reportable 11/18/17 04:34 Plt Morphology Comment Not Reportable 11/18/17 04:34 RBC Morphology Not Reportable 11/18/17 04:34 Dimorphic RBCs Not Reportable 11/18/17 04:34 Polychromasia Few 11/18/17 04:34 Hypochromasia 1+ 11/18/17 04:34 Poikilocytosis 1+ 11/18/17 04:34 Anisocytosis 1+ 11/18/17 04:34 Microcytosis Not Reportable 11/18/17 04:34 Macrocytosis Not Reportable 11/18/17 04:34 Spherocytes Not Reportable 11/18/17 04:34 Pappenheimer Bodies Not Reportable 11/18/17 04:34 Sickle Cells Not Reportable 11/18/17 04:34 Target Cells Not Reportable 11/18/17 04:34 Tear Drop Cells Not Reportable 11/18/17 04:34 Ovalocytes 1+ 11/18/17 04:34 Stomatocytes Few 11/18/17 04:34 Helmet Cells Not Reportable 11/18/17 04:34 Dukes-Dargan Bodies Not Reportable 11/18/17 04:34 Henniker Rings Not Reportable 11/18/17 04:34 Lucretia Cells Not Reportable 11/18/17 04:34 Bite Cells Not Reportable 11/18/17 04:34 Crenated Cell Not Reportable 11/18/17 04:34 Elliptocytes Not Reportable 11/18/17 04:34 Acanthocytes (Spur) Not Reportable 11/18/17 04:34 Rouleaux Not Reportable 11/18/17 04:34 Hemoglobin C Crystals Not Reportable 11/18/17 04:34 Schistocytes Not Reportable 11/18/17 04:34 Malaria parasites Not Reportable 11/18/17 04:34 Santo Bodies Not Reportable 11/18/17 04:34 Hem Pathologist Commnt No 11/18/17 04:34 PT 16.7 Sec. (12.2-14.9) H 11/18/17 04:34 INR 1.30 (0.87-1.13) H 11/18/17 04:34 APTT 31.7 Sec. (24.2-36.6) 11/12/17 00:23 POC ABG pH 7.409 (7.35-7.45) 11/16/17 05:17 POC ABG pCO2 31.5 (35-45) L 11/16/17 05:17 POC ABG pO2 122 (80-105) H 11/16/17 05:17 POC ABG HCO3 19.9 11/16/17 05:17 POC ABG Total CO2 21 11/16/17 05:17 POC ABG O2 Sat 99 11/16/17 05:17 POC ABG Base Excess -5 11/16/17 05:17 FiO2 30 % 11/16/17 05:17 Sodium 155 mmol/L (137-145) H 11/18/17 04:34 Potassium 3.2 mmol/L (3.6-5.0) L 11/18/17 04:34 Chloride 121.0 mmol/L (98-107) H 11/18/17 04:34 Carbon Dioxide 20 mmol/L (22-30) L 11/18/17 04:34 Anion Gap 17 mmol/L 11/18/17 04:34 BUN 74 mg/dL (9-20) H 11/18/17 04:34 Creatinine 2.9 mg/dL (0.8-1.5) H 11/18/17 04:34 Estimated GFR 26 ml/min 11/18/17 04:34 BUN/Creatinine Ratio 26 % 11/18/17 04:34 Glucose 126 mg/dL (75-100) H 11/18/17 04:34 POC Glucose 86 (70-105) 11/16/17 05:38 Lactic Acid 1.80 mmol/L (0.7-2.0) 11/13/17 14:21 Calcium 7.9 mg/dL (8.4-10.2) L 11/18/17 04:34 Total Bilirubin 1.10 mg/dL (0.1-1.2) 11/11/17 23:20 AST 27 units/L (5-40) 11/11/17 23:20 ALT 40 units/L (7-56) 11/11/17 23:20 Alkaline Phosphatase 90 units/L (35-129) 11/11/17 23:20 Total Creatine Kinase 84 units/L (55-170) 11/12/17 20:03 CK-MB (CK-2) < 1.0 ng/mL (0.0-4.0) 11/12/17 20:03 CK-MB (CK-2) Rel Index 1.1 (0-4) 11/12/17 20:03 Troponin T 0.098 ng/mL (0.00-0.029) H 11/12/17 Unknown C-Reactive Protein 25.70 mg/dL (0.00-1.30) H 11/11/17 23:20 NT-Pro-B Natriuret Pep 792.4 pg/mL (0-900) 11/11/17 23:20 Total Protein 6.5 g/dL (6.3-8.2) 11/11/17 23:20 Albumin 2.5 g/dL (3.9-5) L 11/11/17 23:20 Albumin/Globulin Ratio 0.6 % 11/11/17 23:20 Triglycerides 86 mg/dL (2-149) 11/11/17 23:20 Cholesterol 82 mg/dL (50-199) 11/11/17 23:20 LDL Cholesterol Direct 42 mg/dL (50-130) L 11/11/17 23:20 HDL Cholesterol 24 mg/dL (40-59) L 11/11/17 23:20 Cholesterol/HDL Ratio 3.41 % 11/11/17: Lipase 30 units/L (13-60) 11/11/17 23:20 Urine Color Nicole (Yellow) 11/11/17 23:09 Urine Turbidity Cloudy (Clear) 11/11/17 23:09 Urine pH 5.0 (5.0-7.0) 11/11/17 23:09 Ur Specific [place] 1.025 (1.003-1.030) 11/11/17 23:09 Urine Protein 100 mg/dl mg/dL (Negative) 11/11/17 23:09 Urine Glucose (UA) 50 mg/dL (Negative) 11/11/17 23:09 Urine Ketones Neg mg/dL (Negative) 11/11/17 23:09 Urine Blood Neg (Negative) 11/11/17 23:09 Urine Nitrite Neg (Negative) 11/11/17 23:09 Urine Bilirubin Neg (Negative) 11/11/17 23:09 Urine Urobilinogen 4.0 mg/dL (<2.0) 11/11/17 23:09 Ur Leukocyte Esterase Neg (Negative) 11/11/17 23:09 Urine WBC (Auto) 5.0 /HPF (0.0-6.0) 11/11/17 23:09 Urine RBC (Auto) 4.0 /HPF (0.0-6.0) 11/11/17 23:09 Urine Bacteria (Auto) 3+ /HPF (Negative) 11/11/17 23:09 Amorphous Crystals 3+ 11/11/17 23:09 Hyaline Casts 76 /LPF 11/11/17 23:09 Urine Mucus 2+ /HPF 11/11/17 23:09
[2017-11-18] MEDS ORDERED: DIPRIVAN 10 MG/ML IV ONE (11:41)
[2017-11-18] MEDS ORDERED: AMIDATE IV ONE (11:41)
--- NOTE | 2017-11-18 11:51 | Progress Note ---
Assessment and Plan Acute Respiratory failure Pneumonia Carotid stenosis s/p recent carotid endarterectomy Recent CVA involving the MCA territory post CEA surgery Hx of Non-obstructive CAD Hypertension Normal LVEF on echocardiogram done 09/2017. Recent Persantine stress test revealed a small basilar inferior defect of insignificance. Ok to proceed with GI endoscopy as indicated. Subjective Date of service: 11/18/17 Principal diagnosis: coffee-ground emesis Interval history: Patient remains intubated. He is planned for GI endoscopy. Stable sinus rhythm on telemetry. Objective Vital Signs Temp Pulse Pulse Resp BP Pulse Ox 11/18/17 11:00 90 22 135/76 100 11/18/17 10:00 91 H 28 H 125/74 100 11/18/17 09:00 85 17 133/77 100 11/18/17 08:40 87 135/80 100 11/18/17 08:01 94 H 21 154/91 100 11/18/17 08:00 98.6 F 11/18/17 07:00 76 18 134/78 100 11/18/17 06:00 77 20 123/74 100 11/18/17 05:00 99 H 24 136/85 99 11/18/17 04:00 98.7 F 76 84 18 152/83 100 11/18/17 03:00 86 20 163/89 100 11/18/17 02:00 71 17 135/76 100 11/18/17 01:00 67 21 130/71 100 11/18/17 00:00 98.5 F 87 89 21 127/73 100 11/17/17 23:57 84 20 123/69 100 11/17/17 23:43 99 H 121/75 100 11/17/17 23:00 75 20 123/69 100 11/17/17 22:00 78 20 123/70 100 11/17/17 21:00 84 20 137/77 100 11/17/17 20:00 99.2 F 81 76 19 140/82 100 11/17/17 19:20 89 150/74 100 11/17/17 19:01 87 22 150/74 100 11/17/17 18:00 80 19 137/64 99 11/17/17 17:01 93 H 18 142/73 98 11/17/17 16:15 83 128/72 100 11/17/17 16:00 98.5 F 79 89 25 H 128/72 97 11/17/17 15:00 85 22 137/77 100 11/17/17 14:00 92 H 27 H 126/87 11/17/17 13:00 89 28 H 148/85 99 11/17/17 12:29 81 129/69 100 11/17/17 12:00 98.5 F 77 89 23 131/71 99 - Physical Examination General: Other ( on the vent) Cardiac: Positive: Reg Rate and Rhythm - Labs and Meds Coagulation 11/18/17 Range/Units 04:34 PT 16.7 H (12.2-14.9) Sec. INR 1.30 H (0.87-1.13) CBC 11/18/17 Range/Units 04:34 WBC 15.5 H (4.5-11.0) K/mm3 RBC 3.13 L (3.65-5.03) M/mm3 Hgb 8.1 L (11.8-15.2) gm/dl Hct 26.3 L (35.5-45.6) % Plt Count 317 (140-440) K/mm3 Comprehensive Metabolic Panel 11/18/17 Range/Units 04:34 Sodium 155 H (137-145) mmol/L Potassium 3.2 L (3.6-5.0) mmol/L Chloride 121.0 H (98-107) mmol/L Carbon Dioxide 20 L (22-30) mmol/L BUN 74 H (9-20) mg/dL Creatinine 2.9 H (0.8-1.5) mg/dL Glucose 126 H (75-100) mg/dL Calcium 7.9 L (8.4-10.2) mg/dL
[2017-11-18] MEDS ORDERED: NACL 0.9% 1000 ML 1,000 ML IV SCH (12:00)
[2017-11-18] MEDS ORDERED: WATER FOR IRRIG STERILE IR ONE (12:01)
--- NOTE | 2017-11-18 13:39 | Post Operative Note ---
Pre-op diagnosis: gi bleed Post-op diagnosis: same Findings: EGD: 4-5 cm hiatal hernia - 8 mm cratered, 10 mm linear ulcer proximal lesser curvature with erythema but no other bleeding stigmata - gastritis - negative other Procedure: EGD Anesthesia: MAC Surgeon: TAMIKA FAIRBANKS Estimated blood loss: none Pathology: list Specimen disposition: to lab Condition: stable Disposition: floor
--- NOTE | 2017-11-18 14:07 | Progress Note ---
Assessment and Plan Assessment * Hypernatremia * DARYA * Hypokalemia * Acute CVA * s/p CEA * Encephalopathy * respiratory failure Plan: * Needs more free H2O w/ TF as SNa is increasing * add kcl to ivfs * dialy lytes * added d5w, increase rate * strict i/os * keep map >65 * strict i/os * daily lytes * ua noted * Consultants' recommendations reviewed * Replete lytes prn * Avoid nephrotoxins Subjective Date of service: 11/18/17 Principal diagnosis: coffee-ground emesis Interval history: new consult noted, last seen 11/09 with normal renal function Objective - Exam Narrative Exam: Constitutional: lethargic, other (intubated) Eyes: non-icteric ENT: oropharynx moist, other (ETT at 24 cm) Neck: supple, no JVD Ascultation: Bilateral: rhonchi (bilateral LT >>RT) Cardiovascular: regular rate and rhythm, other (tachycardic) Gastrointestinal: normoactive bowel sounds, non-distended Integumentary: normal Extremities: no cyanosis, no edema, other (RT femoral line in place) Neurologic: unable to assess (opens eyes spontaneously but does not follow commands . ) - Vital Signs Vital signs: Vital Signs - 12hr 11/18/17 11/18/17 11/18/17 03:00 04:00 05:00 Temperature 98.7 F Pulse Rate 86 76 99 H Pulse Rate [ 84 Right From Monitor] Respiratory 20 18 24 Rate Blood Pressure 163/89 152/83 136/85 O2 Sat by Pulse 100 100 99 Oximetry 11/18/17 11/18/17 11/18/17 06:00 07:00 08:00 Temperature 98.6 F Pulse Rate 77 76 Pulse Rate [ Right From Monitor] Respiratory 20 18 Rate Blood Pressure 123/74 134/78 O2 Sat by Pulse 100 100 Oximetry 11/18/17 11/18/17 11/18/17 08:01 08:40 09:00 Temperature Pulse Rate 94 H 87 85 Pulse Rate [ Right From Monitor] Respiratory 21 17 Rate Blood Pressure 154/91 135/80 133/77 O2 Sat by Pulse 100 100 100 Oximetry 11/18/17 11/18/17 11/18/17 10:00 11:00 12:00 Temperature 98.5 F Pulse Rate 91 H 90 117 H Pulse Rate [ Right From Monitor] Respiratory 28 H 22 21 Rate Blood Pressure 125/74 135/76 120/71 O2 Sat by Pulse 100 100 100 Oximetry 11/18/17 11/18/17 11/18/17 12:47 13:00 13:01 Temperature 99.6 F Pulse Rate 90 84 86 Pulse Rate [ Right From Monitor] Respiratory 20 20 20 Rate Blood Pressure 123/75 100/58 101/60 O2 Sat by Pulse 100 100 100 Oximetry 11/18/17 11/18/17 11/18/17 13:06 13:15 13:33 Temperature 99.1 F Pulse Rate 85 87 110 H Pulse Rate [ Right From Monitor] Respiratory 20 24 Rate Blood Pressure 112/67 109/69 116/73 O2 Sat by Pulse 100 100 100 Oximetry - Lab 11/18/17 04:34 11/18/17 04:34 Most recent lab results Calcium 7.9 mg/dL (8.4-10.2) L 11/18/17 04:34
[2017-11-18] MEDS: KCL 10MEQ/100ML 10 MEQ/100 ML BAG IV SCH ×2 (14:29→15:40)
--- NOTE | 2017-11-18 14:29 | Operative Report ---
PROCEDURE: Esophagogastroduodenoscopy. INDICATION: 1. Anemia. 2. GI bleed. MEDICATIONS: Propofol per LIBRARY CLERK. COMPLICATIONS: None. DESCRIPTION OF PROCEDURE: The patient ____ in the Medical Intensive Care Unit. The patient had the procedure discussed with him at length. All risks, complications, and benefits discussed, which the patient signed for the procedure to be performed. The patient was placed in left lateral decubitus position. Mouth block placed in the patient's oral cavity. After adequate sedation by the medication as above, endoscope was introduced into the mouth and brought to the level of the second portion of duodenum. Retroflexion view performed. The patient's vital signs remained stable throughout the procedure. FINDINGS: There was noted to be a large 4-5 cm hiatal hernia at GE junction. There were some linear erosions along the hiatal hernia itself, but no bleeding stigmata noted. The esophagus otherwise grossly appeared normal. There was an 8-9 mm cratered ulcer with erythema and a 10-11 mm linear ulcer with erythema noted on the proximal to lesser curvature of the stomach. No bleeding stigmata requiring treatment was noted. This may be the patient's source of recent coffee grounds. Again, no stigmata noted that required intervention. The stomach otherwise grossly appeared normal. The duodenum appeared normal. Retroflexion view performed in the stomach showed no other pathology other than noted above. The patient tolerated the procedure well. No complications during the procedure. IMPRESSION: 1. Large hiatal hernia. 2. Erythema within the hiatal hernia without bleeding stigmata. 3. Ulcer x 2, proximal stomach as noted above. 4. Otherwise, benign EGD. RECOMMENDATIONS: 1. PPI b.i.d. 2. Avoid NSAIDs and aspirin. 3. Follow hematocrit and transfuse as needed. 4. Okay to restart p.o. from a GI standpoint. 5. We will follow. JOB# [id number] CAB/NTS
--- NOTE | 2017-11-18 19:11 | Progress Note ---
Assessment and Plan Assessment: 1) Sepsis with transient septic shock: shock resolved, fever resolved, leukocytosis up. Etiology most likely VAP/post-obstructive pneumonia. CRP=25 2) VAP vs post-obstructive pneumonia (mucous mugging) -initial sputum 10/10 Klebsiella -sputum 11/12 usual respiratory estlea -CXR showed increased perihilar alveolar density >RLL than LLL. -CTA showed complete atelectasis of the LLL with mediatinal shift to the left due to blockage of the left main bronchus by ETT. 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, placement of recent PEG tube with prolonged recent admission from 10/04-/11/10/17 4) Acute encephalopathy 5) Acute Respiratory failure 6) DARYA 7) Hypernatremia Plan: -continue [id number] -needs trach I am rounding on 11/20 Thank you for your consultation, will follow up with you. 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/29 neg 11/10 neg 11/12 ngtd Urine cultures: Respiratory cultures: 10/10 Klebsiella 11/12 usual resp estela Current Antimicrobials: Zosyn 11/13 Previous Antimicrobials: Levaquin Objective - Exam Narrative Exam: General appearance: sedated on the vent non verbal on CPAP Eyes: anicteric sclerae, moist conjunctivae; no lid-lag; PERRLA HENT: Atraumatic; oropharynx+ETT +OGT Neck: Trachea midline; supple, no thyromegaly or lymphadenopathy Lungs: scattered rhonchi CV: tachy Abdomen: Soft, distended +PEG Extremities: winnie arms/legs edema Skin: Normal temperature, turgor and texture; no rash, ulcers or subcutaneous nodules Psych: sedated Neuro: sedated Lines: condom cath - Constitutional Vitals: Vital Signs Temp Pulse Resp BP Pulse Ox 99.5 F 106 H 23 118/80 100 11/18/17 16:00 11/18/17 16:38 11/18/17 16:01 11/18/17 16:38 11/18/17 16:38 Temperature -Last 24 Hours Temperature 99.5 F Temperature 99.1 F Temperature 99.1 F Temperature 99.6 F Temperature 98.5 F Temperature 98.6 F Temperature 98.7 F Temperature 98.5 F Temperature 99.2 F - Labs CBC & Chem 7: 11/18/17 04:34 11/18/17 04:34 Labs: Abnormal lab results 11/18/17 11/18/17 11/18/17 Range/Units 04:34 04:34 04:34 WBC 15.5 H (4.5-11.0) K/mm3 RBC 3.13 L (3.65-5.03) M/mm3 Hgb 8.1 L (11.8-15.2) gm/dl Hct 26.3 L (35.5-45.6) % MCH 26 L (28-32) pg MCHC 31 L (32-34) % RDW 18.6 H (13.2-15.2) % Seg Neuts % (Manual) 81.0 H (40.0-70.0) % Lymphocytes % (Manual) 7.0 L (13.4-35.0) % Nucleated RBC % 1.0 H (0.0-0.9) % Seg Neutrophils # Man 12.6 H (1.8-7.7) K/mm3 Lymphocytes # (Manual) 1.1 L (1.2-5.4) K/mm3 PT 16.7 H (12.2-14.9) Sec. INR 1.30 H (0.87-1.13) Sodium 155 H (137-145) mmol/L Potassium 3.2 L (3.6-5.0) mmol/L Chloride 121.0 H (98-107) mmol/L Carbon Dioxide 20 L (22-30) mmol/L BUN 74 H (9-20) mg/dL Creatinine 2.9 H (0.8-1.5) mg/dL Glucose 126 H (75-100) mg/dL Calcium 7.9 L (8.4-10.2) mg/dL
[2017-11-18] MEDS: D5W 1,000 ML with KCL 20 MEQ IV SCH (20:05)
[2017-11-19] MEDS: D5W 1,000 ML with KCL 20 MEQ IV SCH ×2 (05:26→13:44)
[2017-11-19 05:33] LABS: Hematocrit 27.9 % (35.5-45.6); Hemoglobin 8.4 gm/dl (11.8-15.2); Mean Corpuscular HGB Conc 30 % (32-34); Mean Corpuscular Hemoglobin 26 pg (28-32); Mean Corpuscular Volume 87 fl (84-94); Platelet Count 394 K/mm3 (140-440); Red Cell Distribution Width 19.1 % (13.2-15.2)
[2017-11-19 06:13] LABS: Calcium 7.8 mg/dL (8.4-10.2)
--- NOTE | 2017-11-19 07:37 | Progress Note ---
Assessment and Plan Assessment and plan: Mr. 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 He had a Carotid doppler done that revealed a right ICA 50-79% stenosis. CTA of the neck revealed 80% stenosis of the right ICA with probable 50% stenosis of the origin of the right common carotid artery. His symptoms were thought to be due to the Carotid artery stenosis which was disheartening since he was on Aspirin and plavix. He was scheduled for right CEA but needed Cardiac clearance. He underwent stress test on 10/05/17 and Metal Neutralizer stated he was stable for non-cardiac history, low to moderate perioperative risk. So, he underwent right carotid enarterectomy on 10/09/17. Following the surgery, he developed recurrent left sided weakness/hemiparesis was taken to OR again on for Open Thrombectomy of Right Internal Carotid Artery and Injection of TPA into the Distal Artery. CT head obtained on 10/12/17 showed massive right cerebral hemisphere acute CVA with midline shift. He was discharged on 11/10/17 to [facility] but returned to ED on 11/12/17 for sob. He was admitted for Aspiration post-obstructive pneumonia with suspected mucus plug and subsequently intubated on admission. * CTA chest IMPRESSION: There is no thoracic aortic aneurysm or dissection.. There is no pulmonary embolism.. There is complete atelectasis of the left lung causing volume loss and mediastinal shift to the left. This is due to blockage of the left bronchus by the endotracheal tube which is in the right mainstem bronchus. There is no pleural effusion or pneumothorax.. There is pneumoperitoneum and ascites.. Dr. Navarro was notified by telephone at 3:20 a.m. central. * 1v Abd XRAY IMPRESSION: Nasogastric tube ends in the stomach. A PEG tube is identified. Bowel gas pattern is nonobstructive. -Acute hypoxic respiratory failure due to Pneumonia: continue MV, daily weaning attempt -Leukocyotosis with Sepsis with transient septic shock, poa: shock resolved, continue abx, ID is following -Aspiration pneumonia, with mucus plugging/post obstructive pna poa: Top Precipitator Operator is following, following sunction protocols -Acute encephalopathy: treat supportively -Hypernatremia: treat with free water, monitor bmp closely -Hypokalemia: replace and monitor closely -ARF vasomotor nephropathy, poa: IV fluids, monitor bmp closely -Dysphagia with aspiration: s/p peg tube -Acute on chronic blood loss anemia w/Coffee-ground material from peg tube: GI is following, treat with ppi iv bid, EGD done 11/18/17 showed 8 mm cratered, 10 mm linear ulcer proximal lesser curvature with erythema but no other bleeding stigmata, gastritis and 4-5 cm hiatal hernia -Advance care planning: full code Daughter wants to continue aggressive management, he was not interested in DNR or Hospice or tracheostomy at this time per Chart History Interval history: Patient was seen and examined. Follow-up on current diagnosis of respiratory failure. Overnight uneventful. Intubated. Imaging, nursing note, chart, labs and old chart reviewed. Hospitalist Physical - Physical exam Narrative exam: GEN: ill appearing, not sedated, on MV HEENT: NCAT, pupils reactive, anicteric, ETT in place, NGT in place NECK: supple, no adenopathy, no thyromegaly, no JVD CVS/HEART: RRR, normal S1S2, pulses present bilaterally CHEST/LUNGS: Symmetrical chest expansion, good air entry bilaterally GI/Abdomen: soft, distended, pbs, +peg tube in place /Bladder: no suprapubic tenderness, no CVA or paraspinal tenderness EXT/Skin: generalized edema x 4 MSK: left hemiparesis Neuro: CN 2-12 unable to access, doesn't follow commands Psych: confused - Constitutional Vitals: Temp Pulse Resp BP Pulse Ox 98.8 F 105 H 24 116/77 100 11/19/17 04:00 11/19/17 06:00 11/19/17 06:00 11/19/17 06:00 11/19/17 06:00 General appearance: Present: no acute distress Results - Labs CBC & Chem 7: 11/19/17 04:44 11/19/17 04:44 Labs: Laboratory Last Values WBC 19.0 K/mm3 (4.5-11.0) H 11/19/17 04:44 RBC 3.20 M/mm3 (3.65-5.03) L 11/19/17 04:44 Hgb 8.4 gm/dl (11.8-15.2) L 11/19/17 04:44 Hct 27.9 % (35.5-45.6) L 11/19/17 04:44 MCV 87 fl (84-94) 11/19/17 04:44 MCH 26 pg (28-32) L 11/19/17 04:44 MCHC 30 % (32-34) L 11/19/17 04:44 RDW 19.1 % (13.2-15.2) H 11/19/17 04:44 Plt Count 394 K/mm3 (140-440) 11/19/17 04:44 Lymph % (Auto) 8.6 % (13.4-35.0) L 11/13/17 04:50 [place] % (Auto) 11.1 % (0.0-7.3) H 11/13/17 04:50 Eos % (Auto) 0.0 % (0.0-4.3) 11/13/17 04:50 Baso % (Auto) 0.2 % (0.0-1.8) 11/13/17 04:50 Lymph # 1.1 K/mm3 (1.2-5.4) L 11/13/17 04:50 [place] # 1.4 K/mm3 (0.0-0.8) H 11/13/17 04:50 Eos # 0.0 K/mm3 (0.0-0.4) 11/13/17 04:50 Baso # 0.0 K/mm3 (0.0-0.1) 11/13/17 04:50 Add Manual Diff Complete 11/18/17 04:34 Total Counted 100 11/18/17 04:34 Seg Neutrophils % 80.1 % (40.0-70.0) H 11/13/17 04:50 Seg Neuts % (Manual) 81.0 % (40.0-70.0) H 11/18/17 04:34 Band Neutrophils % 4.0 % 11/18/17 04:34 Lymphocytes % (Manual) 7.0 % (13.4-35.0) L 11/18/17 04:34 Reactive Lymphs % (Man) 0 % 11/18/17 04:34 Monocytes % (Manual) 2.0 % (0.0-7.3) 11/18/17 04:34 Eosinophils % (Manual) 1.0 % (0.0-4.3) 11/18/17 04:34 Basophils % (Manual) 0 % (0.0-1.8) 11/18/17 04:34 Metamyelocytes % 3.0 % 11/18/17 04:34 Myelocytes % 2.0 % 11/18/17 04:34 Promyelocytes % 0 % 11/18/17 04:34 Blast Cells % 0 % 11/18/17 04:34 Nucleated RBC % 1.0 % (0.0-0.9) H 11/18/17 04:34 Seg Neutrophils # 9.8 K/mm3 (1.8-7.7) H 11/13/17 04:50 Seg Neutrophils # Man 12.6 K/mm3 (1.8-7.7) H 11/18/17 04:34 Band Neutrophils # 0.6 K/mm3 11/18/17 04:34 Lymphocytes # (Manual) 1.1 K/mm3 (1.2-5.4) L 11/18/17 04:34 Abs React Lymphs (Man) 0.0 K/mm3 11/18/17 04:34 Monocytes # (Manual) 0.3 K/mm3 (0.0-0.8) 11/18/17 04:34 Eosinophils # (Manual) 0.2 K/mm3 (0.0-0.4) 11/18/17 04:34 Basophils # (Manual) 0.0 K/mm3 (0.0-0.1) 11/18/17 04:34 Metamyelocytes # 0.5 K/mm3 11/18/17 04:34 Myelocytes # 0.3 K/mm3 11/18/17 04:34 Promyelocytes # 0.0 K/mm3 11/18/17 04:34 Blast Cells # 0.0 K/mm3 11/18/17 04:34 WBC Morphology Not Reportable 11/18/17 04:34 Hypersegmented Neuts Not Reportable 11/18/17 04:34 Hyposegmented Neuts Not Reportable 11/18/17 04:34 Hypogranular Neuts Not Reportable 11/18/17 04:34 Smudge Cells Not Reportable 11/18/17 04:34 Toxic Granulation Not Reportable 11/18/17 04:34 Toxic Vacuolation Not Reportable 11/18/17 04:34 Dohle Bodies Not Reportable 11/18/17 04:34 Pelger-Huet Anomaly Not Reportable 11/18/17 04:34 Evangelina Rods Not Reportable 11/18/17 04:34 Platelet Estimate Appears normal 11/18/17 04:34 Clumped Platelets Not Reportable 11/18/17 04:34 Plt Clumps, EDTA Not Reportable 11/18/17 04:34 Large Platelets Not Reportable 11/18/17 04:34 Giant Platelets Not Reportable 11/18/17 04:34 Platelet Satelliting Not Reportable 11/18/17 04:34 Plt Morphology Comment Not Reportable 11/18/17 04:34 RBC Morphology Not Reportable 11/18/17 04:34 Dimorphic RBCs Not Reportable 11/18/17 04:34 Polychromasia Few 11/18/17 04:34 Hypochromasia 1+ 11/18/17 04:34 Poikilocytosis 1+ 11/18/17 04:34 Anisocytosis 1+ 11/18/17 04:34 Microcytosis Not Reportable 11/18/17 04:34 Macrocytosis Not Reportable 11/18/17 04:34 Spherocytes Not Reportable 11/18/17 04:34 Pappenheimer Bodies Not Reportable 11/18/17 04:34 Sickle Cells Not Reportable 11/18/17 04:34 Target Cells Not Reportable 11/18/17 04:34 Tear Drop Cells Not Reportable 11/18/17 04:34 Ovalocytes 1+ 11/18/17 04:34 Stomatocytes Few 11/18/17 04:34 Helmet Cells Not Reportable 11/18/17 04:34 [place] Bodies Not Reportable 11/18/17 04:34 [place] Rings Not Reportable 11/18/17 04:34 [place] Cells Not Reportable 11/18/17 04:34 Bite Cells Not Reportable 11/18/17 04:34 Crenated Cell Not Reportable 11/18/17 04:34 Elliptocytes Not Reportable 11/18/17 04:34 Acanthocytes (Spur) Not Reportable 11/18/17 04:34 Rouleaux Not Reportable 11/18/17 04:34 Hemoglobin C Crystals Not Reportable 11/18/17 04:34 Schistocytes Not Reportable 11/18/17 04:34 Malaria parasites Not Reportable 11/18/17 04:34 [place] Bodies Not Reportable 11/18/17 04:34 Hem Pathologist Commnt No 11/18/17 04:34 PT 16.7 Sec. (12.2-14.9) H 11/18/17 04:34 INR 1.30 (0.87-1.13) H 11/18/17 04:34 APTT 31.7 Sec. (24.2-36.6) 11/12/17 00:23 POC ABG pH 7.409 (7.35-7.45) 11/16/17 05:17 POC ABG pCO2 31.5 (35-45) L 11/16/17 05:17 POC ABG pO2 122 (80-105) H 11/16/17 05:17 POC ABG HCO3 19.9 11/16/17 05:17 POC ABG Total CO2 21 11/16/17 05:17 POC ABG O2 Sat 99 11/16/17 05:17 POC ABG Base Excess -5 11/16/17 05:17 FiO2 30 % 11/16/17 05:17 Sodium 152 mmol/L (137-145) H 11/19/17 04:44 Potassium 3.6 mmol/L (3.6-5.0) 11/19/17 04:44 Chloride 117.1 mmol/L (98-107) H 11/19/17 04:44 Carbon Dioxide 17 mmol/L (22-30) L 11/19/17 04:44 Anion Gap 22 mmol/L 11/19/17 04:44 BUN 66 mg/dL (9-20) H 11/19/17 04:44 Creatinine 2.8 mg/dL (0.8-1.5) H 11/19/17 04:44 Estimated GFR 27 ml/min 11/19/17 04:44 BUN/Creatinine Ratio 24 % 11/19/17 04:44 Glucose 119 mg/dL (75-100) H 11/19/17 04:44 POC Glucose 86 (70-105) 11/16/17 05:38 Lactic Acid 1.80 mmol/L (0.7-2.0) 11/13/17 14:21 Calcium 7.8 mg/dL (8.4-10.2) L 11/19/17 04:44 Magnesium 2.70 mg/dL (1.7-2.3) H 11/19/17 04:44 Total Bilirubin 1.10 mg/dL (0.1-1.2) 11/11/17 23:20 AST 27 units/L (5-40) 11/11/17 23:20 ALT 40 units/L (7-56) 11/11/17 23:20 Alkaline Phosphatase 90 units/L (35-129) 11/11/17 23:20 Total Creatine Kinase 84 units/L (55-170) 11/12/17 20:03 CK-MB (CK-2) < 1.0 ng/mL (0.0-4.0) 11/12/17 20:03 CK-MB (CK-2) Rel Index 1.1 (0-4) 11/12/17 20:03 Troponin T 0.098 ng/mL (0.00-0.029) H 11/12/17 Unknown C-Reactive Protein 25.70 mg/dL (0.00-1.30) H 11/11/17 23:20 NT-Pro-B Natriuret Pep 792.4 pg/mL (0-900) 11/11/17 23:20 Total Protein 6.5 g/dL (6.3-8.2) 11/11/17 23:20 Albumin 2.5 g/dL (3.9-5) L 11/11/17 23:20 Albumin/Globulin Ratio 0.6 % 11/11/17 23:20 Triglycerides 86 mg/dL (2-149) 11/11/17 23:20 Cholesterol 82 mg/dL (50-199) 11/11/17 23:20 LDL Cholesterol Direct 42 mg/dL (50-130) L 11/11/17 23:20 HDL Cholesterol 24 mg/dL (40-59) L 11/11/17 23:20 Cholesterol/HDL Ratio 3.41 % 11/11/17 23:20 Lipase 30 units/L (13-60) 11/11/17 23:20 Urine Color Nicole (Yellow) 11/11/17 23:09 Urine Turbidity Cloudy (Clear) 11/11/17 23:09 Urine pH 5.0 (5.0-7.0) 11/11/17 23:09 Ur Specific [place] 1.025 (1.003-1.030) 11/11/17 23:09 Urine Protein 100 mg/dl mg/dL (Negative) 11/11/17 23:09 Urine Glucose (UA) 50 mg/dL (Negative) 11/11/17 23:09 Urine Ketones Neg mg/dL (Negative) 11/11/17 23:09 Urine Blood Neg (Negative) 11/11/17 23:09 Urine Nitrite Neg (Negative) 11/11/17 23:09 Urine Bilirubin Neg (Negative) 11/11/17 23:09 Urine Urobilinogen 4.0 mg/dL (<2.0) 11/11/17 23:09 Ur Leukocyte Esterase Neg (Negative) 11/11/17 23:09 Urine WBC (Auto) 5.0 /HPF (0.0-6.0) 11/11/17 23:09 Urine RBC (Auto) 4.0 /HPF (0.0-6.0) 11/11/17 23:09 Urine Bacteria (Auto) 3+ /HPF (Negative) 11/11/17 23:09 Amorphous Crystals 3+ 11/11/17 23:09 Hyaline Casts 76 /LPF 11/11/17 23:09 Urine Mucus 2+ /HPF 11/11/17 23:09
--- NOTE | 2017-11-19 09:19 | Progress Note ---
Assessment and Plan Acute respiratory failure. multifactorial, sepsis, aspiration pneumonia, mucous plugging GI bleeding. Peptic ulcer on EDG. Okay to start by mouth feedings but aspirin and Plavix not indicated at this time Sepsis,due to the above. On antibiotics, still elevated WBC. Will order chest x-ray and review for bronchoscopy in the morning, if family is agreeable AMS. Probably combination of sepsis, metabolic encephalopathy from prior brain injury Stroke Hypernatremia- on D5W,free water replacement. Slowly improving together with renal function Acute kidney injury. Worsening creatinine Recommendations Increase D5W gtt Increased by mouth water sips Appreciate Nephrology f/u See GI recommendations Still needs tracheotomy, in order to wean from ventilator support. I do not anticipate the patient will be weaned off without trach. Maintain extubation precautions No family available. Will Will leave message for case discussion Critical care time was 31 minutes of [id number] evaluation and coordination of care Subjective Date of service: 11/19/17 Principal diagnosis: coffee-ground emesis, sepsis, pneumonia Interval history: Intubated Objective Vital Signs - 12hr 11/18/17 11/18/17 11/18/17 22:00 23:00 23:39 Temperature Pulse Rate 98 H 86 90 Pulse Rate [ Right From Monitor] Respiratory 22 20 24 Rate Blood Pressure 113/68 112/65 142/77 O2 Sat by Pulse 99 100 100 Oximetry 11/18/17 11/18/17 11/19/17 23:50 23:53 00:00 Temperature 98.3 F Pulse Rate 88 93 H Pulse Rate [ 106 H Right From Monitor] Respiratory 20 Rate Blood Pressure 111/68 109/70 O2 Sat by Pulse 100 100 Oximetry 11/19/17 11/19/17 11/19/17 01:00 02:00 03:00 Temperature Pulse Rate 97 H 111 H 135 H Pulse Rate [ Right From Monitor] Respiratory 20 19 25 H Rate Blood Pressure 104/61 111/64 140/74 O2 Sat by Pulse 99 100 100 Oximetry 11/19/17 11/19/17 11/19/17 04:00 04:23 05:00 Temperature 98.8 F Pulse Rate 102 H 96 H 94 H Pulse Rate [ Right From Monitor] Respiratory 22 20 Rate Blood Pressure 94/62 102/63 106/62 O2 Sat by Pulse 98 100 100 Oximetry 08/30/18 08/30/18 08/30/18 06:00 07:00 08:00 Temperature 98.6 F Pulse Rate 105 H 83 100 H Pulse Rate [ 84 Right From Monitor] Respiratory 24 20 18 Rate Blood Pressure 116/77 112/67 122/70 O2 Sat by Pulse 100 100 100 Oximetry 11/19/17 11/19/17 09:00 09:02 Temperature Pulse Rate 90 86 Pulse Rate [ Right From Monitor] Respiratory 19 Rate Blood Pressure 108/68 114/59 O2 Sat by Pulse 100 100 Oximetry Constitutional: lethargic, other (intubated) Eyes: non-icteric ENT: oropharynx moist, other (ETT at 24 cm) Neck: supple, no JVD Ascultation: Bilateral: rhonchi (sporadic) Cardiovascular: regular rate and rhythm, other (tachycardic) Gastrointestinal: normoactive bowel sounds, non-distended Integumentary: normal Extremities: no cyanosis, no edema, other (RT femoral line in place) Neurologic: unable to assess (opens eyes spontaneously but does not follow commands . ) CBC and BMP: 11/19/17 04:44 11/19/17 04:44 ABG, PT/INR, D-dimer: ABG POC ABG pH 7.409 (7.35-7.45) 11/16/17 05:17 POC ABG pCO2 31.5 (35-45) L 11/16/17 05:17 POC ABG pO2 122 (80-105) H 11/16/17 05:17 POC ABG HCO3 19.9 11/16/17 05:17 POC ABG Total CO2 21 11/16/17 05:17 POC ABG O2 Sat 99 11/16/17 05:17 PT/INR, D-dimer PT 16.7 Sec. (12.2-14.9) H 11/18/17 04:34 INR 1.30 (0.87-1.13) H 11/18/17 04:34 Abnormal lab findings: Abnormal Labs 11/11/17 11/11/17 11/11/17 23:18 23:20 23:20 WBC RBC Hgb 10.4 L Hct 32.6 L D MCH 27 L MCHC RDW 17.4 H Plt Count 105 L Lymph % (Auto) [place] % (Auto) Lymph # [place] # Seg Neutrophils % Seg Neuts % (Manual) Lymphocytes % (Manual) 8.0 L Nucleated RBC % 1.0 H Seg Neutrophils # Seg Neutrophils # Man Lymphocytes # (Manual) 0.7 L Monocytes # (Manual) PT INR POC ABG pH 7.550 H POC ABG pCO2 31.6 L POC ABG pO2 Sodium 146 H Potassium Chloride Carbon Dioxide BUN 26 H Creatinine 1.7 H D Glucose 133 H Lactic Acid Calcium Magnesium Troponin T 0.117 H* C-Reactive Protein Albumin 2.5 L LDL Cholesterol Direct 42 L HDL Cholesterol 24 L 11/11/17 11/12/17 11/12/17 23:20 00:23 00:23 WBC RBC Hgb Hct MCH MCHC RDW Plt Count Lymph % (Auto) [place] % (Auto) Lymph # [place] # Seg Neutrophils % Seg Neuts % (Manual) Lymphocytes % (Manual) Nucleated RBC % Seg Neutrophils # Seg Neutrophils # Man Lymphocytes # (Manual) Monocytes # (Manual) PT 16.7 H INR 1.28 H POC ABG pH POC ABG pCO2 POC ABG pO2 Sodium Potassium Chloride Carbon Dioxide BUN Creatinine Glucose Lactic Acid 3.20 H* Calcium Magnesium Troponin T C-Reactive Protein 25.70 H Albumin LDL Cholesterol Direct HDL Cholesterol 11/12/17 11/12/17 11/12/17 00:46 01:27 01:27 WBC RBC Hgb Hct MCH MCHC RDW Plt Count Lymph % (Auto) [place] % (Auto) Lymph # [place] # Seg Neutrophils % Seg Neuts % (Manual) Lymphocytes % (Manual) Nucleated RBC % Seg Neutrophils # Seg Neutrophils # Man Lymphocytes # (Manual) Monocytes # (Manual) PT INR POC ABG pH 7.495 H POC ABG pCO2 32.0 L POC ABG pO2 64 L Sodium Potassium Chloride Carbon Dioxide BUN Creatinine Glucose Lactic Acid 3.70 H* Calcium Magnesium Troponin T 0.096 H C-Reactive Protein Albumin LDL Cholesterol Direct HDL Cholesterol 11/12/17 11/12/17 11/12/17 03:21 04:50 06:27 WBC RBC Hgb Hct MCH MCHC RDW Plt Count Lymph % (Auto) [place] % (Auto) Lymph # [place] # Seg Neutrophils % Seg Neuts % (Manual) Lymphocytes % (Manual) Nucleated RBC % Seg Neutrophils # Seg Neutrophils # Man Lymphocytes # (Manual) Monocytes # (Manual) PT INR POC ABG pH POC ABG pCO2 POC ABG pO2 109 H Sodium Potassium Chloride Carbon Dioxide BUN Creatinine Glucose Lactic Acid 3.80 H* 2.20 H* Calcium Magnesium Troponin T C-Reactive Protein Albumin LDL Cholesterol Direct HDL Cholesterol 11/12/17 11/12/17 11/12/17 09:24 09:24 09:24 WBC RBC Hgb 10.4 L Hct 33.4 L MCH MCHC RDW Plt Count Lymph % (Auto) [place] % (Auto) Lymph # [place] # Seg Neutrophils % Seg Neuts % (Manual) Lymphocytes % (Manual) Nucleated RBC % Seg Neutrophils # Seg Neutrophils # Man Lymphocytes # (Manual) Monocytes # (Manual) PT INR POC ABG pH POC ABG pCO2 POC ABG pO2 Sodium Potassium Chloride Carbon Dioxide BUN Creatinine Glucose Lactic Acid 2.90 H* Calcium Magnesium Troponin T 0.091 H C-Reactive Protein Albumin LDL Cholesterol Direct HDL Cholesterol 11/12/17 11/12/17 11/12/17 12:56 20:03 Unknown WBC RBC Hgb Hct MCH MCHC RDW Plt Count Lymph % (Auto) [place] % (Auto) Lymph # [place] # Seg Neutrophils % Seg Neuts % (Manual) Lymphocytes % (Manual) Nucleated RBC % Seg Neutrophils # Seg Neutrophils # Man Lymphocytes # (Manual) Monocytes # (Manual) PT INR POC ABG pH POC ABG pCO2 POC ABG pO2 Sodium Potassium Chloride Carbon Dioxide BUN Creatinine Glucose Lactic Acid 3.60 H* Calcium Magnesium Troponin T 0.102 H* 0.156 H* D C-Reactive Protein Albumin LDL Cholesterol Direct HDL Cholesterol 11/12/17 11/13/17 11/13/17 Unknown 04:50 04:50 WBC 12.2 H RBC 3.51 L Hgb 9.3 L Hct 30.1 L MCH 26 L MCHC 31 L RDW 18.0 H Plt Count 128 L Lymph % (Auto) 8.6 L [place] % (Auto) 11.1 H Lymph # 1.1 L [place] # 1.4 H Seg Neutrophils % 80.1 H Seg Neuts % (Manual) Lymphocytes % (Manual) Nucleated RBC % Seg Neutrophils # 9.8 H Seg Neutrophils # Man Lymphocytes # (Manual) Monocytes # (Manual) PT INR POC ABG pH POC ABG pCO2 POC ABG pO2 Sodium 149 H Potassium 5.1 H Chloride 114.4 H Carbon Dioxide 18 L BUN 52 H Creatinine 3.3 H D Glucose 129 H Lactic Acid Calcium 7.9 L Magnesium Troponin T 0.098 H C-Reactive Protein Albumin LDL Cholesterol Direct HDL Cholesterol 0811/13/17 11/14/17 04:51 09:34 04:21 WBC RBC Hgb Hct MCH MCHC RDW Plt Count Lymph % (Auto) [place] % (Auto) Lymph # [place] # Seg Neutrophils % Seg Neuts % (Manual) Lymphocytes % (Manual) Nucleated RBC % Seg Neutrophils # Seg Neutrophils # Man Lymphocytes # (Manual) Monocytes # (Manual) PT INR POC ABG pH POC ABG pCO2 30.1 L 29.8 L POC ABG pO2 135 H Sodium Potassium Chloride Carbon Dioxide BUN Creatinine Glucose Lactic Acid 2.10 H* Calcium Magnesium Troponin T C-Reactive Protein Albumin LDL Cholesterol Direct HDL Cholesterol 11/15/17 11/15/17 11/16/17 04:52 15:50 05:17 WBC RBC Hgb Hct MCH MCHC RDW Plt Count Lymph % (Auto) [place] % (Auto) Lymph # [place] # Seg Neutrophils % Seg Neuts % (Manual) Lymphocytes % (Manual) Nucleated RBC % Seg Neutrophils # Seg Neutrophils # Man Lymphocytes # (Manual) Monocytes # (Manual) PT INR POC ABG pH POC ABG pCO2 29.5 L 31.5 L POC ABG pO2 115 H 122 H Sodium 154 H Potassium Chloride 117.9 H Carbon Dioxide 19 L BUN 87 H Creatinine 4.1 H Glucose Lactic Acid Calcium 8.1 L Magnesium Troponin T C-Reactive Protein Albumin LDL Cholesterol Direct HDL Cholesterol 11/16/17 11/17/17 11/17/17 16:37 04:07 10:00 WBC 14.7 H RBC 3.23 L Hgb 8.3 L Hct 28.1 L MCH 26 L MCHC 30 L RDW 18.8 H Plt Count Lymph % (Auto) [place] % (Auto) Lymph # [place] # Seg Neutrophils % Seg Neuts % (Manual) 75 H Lymphocytes % (Manual) 8.0 L Nucleated RBC % 1.0 H Seg Neutrophils # Seg Neutrophils # Man 11.0 H Lymphocytes # (Manual) Monocytes # (Manual) 0.9 H PT INR POC ABG pH POC ABG pCO2 POC ABG pO2 Sodium 153 H 155 H Potassium Chloride 117.3 H 119.4 H Carbon Dioxide 19 L 20 L BUN 90 H 89 H Creatinine 3.9 H 3.6 H Glucose 111 H 115 H Lactic Acid Calcium 8.1 L 8.0 L Magnesium Troponin T C-Reactive Protein Albumin LDL Cholesterol Direct HDL Cholesterol 11/18/17 11/18/17 11/18/17 04:34 04:34 04:34 WBC 15.5 H RBC 3.13 L Hgb 8.1 L Hct 26.3 L MCH 26 L MCHC 31 L RDW 18.6 H Plt Count Lymph % (Auto) [place] % (Auto) Lymph # [place] # Seg Neutrophils % Seg Neuts % (Manual) 81.0 H Lymphocytes % (Manual) 7.0 L Nucleated RBC % 1.0 H Seg Neutrophils # Seg Neutrophils # Man 12.6 H Lymphocytes # (Manual) 1.1 L Monocytes # (Manual) PT 16.7 H INR 1.30 H POC ABG pH POC ABG pCO2 POC ABG pO2 Sodium 155 H Potassium 3.2 L Chloride 121.0 H Carbon Dioxide 20 L BUN 74 H Creatinine 2.9 H Glucose 126 H Lactic Acid Calcium 7.9 L Magnesium Troponin T C-Reactive Protein Albumin LDL Cholesterol Direct HDL Cholesterol 11/19/17 11/19/17 04:44 04:44 WBC 19.0 H RBC 3.20 L Hgb 8.4 L Hct 27.9 L MCH 26 L MCHC 30 L RDW 19.1 H Plt Count Lymph % (Auto) [place] % (Auto) Lymph # [place] # Seg Neutrophils % Seg Neuts % (Manual) Lymphocytes % (Manual) Nucleated RBC % Seg Neutrophils # Seg Neutrophils # Man Lymphocytes # (Manual) Monocytes # (Manual) PT INR POC ABG pH POC ABG pCO2 POC ABG pO2 Sodium 152 H Potassium Chloride 117.1 H Carbon Dioxide 17 L BUN 66 H Creatinine 2.8 H Glucose 119 H Lactic Acid Calcium 7.8 L Magnesium 2.70 H Troponin T C-Reactive Protein Albumin LDL Cholesterol Direct HDL Cholesterol
[2017-11-19] MEDS: SODIUM CHLORIDE FLUSH SYRINGE 10 ML IV SCH ×4 (11:25→22:08)
[2017-11-19] MEDS: PROTONIX (nf) FEEDTUBE SCH ×2 (11:26→22:07)
--- NOTE | 2017-11-19 11:33 | Progress Note ---
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 Recent Persantine stress test revealed a small basilar inferior defect of insignificance. Stable cardiac theodore. We will follow intermittently. Subjective Date of service: 11/19/17 Principal diagnosis: coffee-ground emesis, sepsis, pneumonia Interval history: Patient remains intubated. He is 1 day post GI endoscopy. Stable sinus rhythm on telemetry. Objective Vital Signs Temp Pulse Pulse Resp BP Pulse Ox 11/19/17 11:00 94 H 19 115/70 100 11/19/17 10:00 76 20 114/58 100 11/19/17 09:02 86 114/59 100 11/19/17 09:00 90 19 108/68 100 11/19/17 08:00 98.6 F 100 H 84 18 122/70 100 11/19/17 07:00 83 20 112/67 100 11/19/17 06:00 105 H 24 116/77 100 11/19/17 05:00 94 H 20 106/62 100 11/19/17 04:23 96 H 102/63 100 11/19/17 04:00 98.8 F 102 H 22 94/62 98 11/19/17 03:00 135 H 25 H 140/74 100 11/19/17 02:00 111 H 19 111/64 100 11/19/17 01:00 97 H 20 104/61 99 11/19/17 00:00 93 H 106 H 20 109/70 100 11/18/17 23:53 98.3 F 11/18/17 23:50 88 111/68 100 11/18/17 23:39 90 24 142/77 100 11/18/17 23:00 86 20 112/65 100 11/18/17 22:00 98 H 22 113/68 99 11/18/17 21:00 101 H 24 121/77 100 11/18/17 20:03 107 H 147/85 100 11/18/17 20:00 99.8 F H 98 H 92 H 27 H 122/72 100 11/18/17 19:00 99 H 22 125/74 100 11/18/17 18:00 92 H 21 111/72 100 11/18/17 17:00 94 H 22 105/68 100 11/18/17 16:38 106 H 118/80 100 11/18/17 16:01 104 H 23 128/79 99 11/18/17 16:00 99.5 F 11/18/17 15:01 97 H 21 110/71 99 11/18/17 14:01 107 H 27 H 147/90 100 11/18/17 13:33 99.1 F 110 H 24 116/73 100 11/18/17 13:15 87 20 109/69 100 11/18/17 13:06 85 112/67 11/18/17 13:01 86 20 101/60 100 11/18/17 13:00 84 20 100/58 11/18/17 12:47 99.6 F 90 20 123/75 11/18/17 12:00 98.5 F 117 H 21 120/71 100 - Physical Examination General: Other ( on the vent) Cardiac: Positive: Reg Rate and Rhythm - Labs and Meds CBC 11/19/17 Range/Units 04:44 WBC 19.0 H (4.5-11.0) K/mm3 RBC 3.20 L (3.65-5.03) M/mm3 Hgb 8.4 L (11.8-15.2) gm/dl Hct 27.9 L (35.5-45.6) % Plt Count 394 (140-440) K/mm3 Comprehensive Metabolic Panel 11/19/17 Range/Units 04:44 Sodium 152 H (137-145) mmol/L Potassium 3.6 (3.6-5.0) mmol/L Chloride 117.1 H (98-107) mmol/L Carbon Dioxide 17 L (22-30) mmol/L BUN 66 H (9-20) mg/dL Creatinine 2.8 H (0.8-1.5) mg/dL Glucose 119 H (75-100) mg/dL Calcium 7.8 L (8.4-10.2) mg/dL
--- NOTE | 2017-11-19 12:34 | XRay Report ---
AP CHEST: HISTORY: Left lower lobe atelectasis, high white blood cell count The endotracheal tube remains in adequate position since 11/15/17. The nasogastric tube has been removed. Normal heart and mediastinal structures. The lungs are clear. The left lower lobe opacity has resolved. No acute process is noted. IMPRESSION: Unremarkable AP chest.
--- NOTE | 2017-11-19 14:26 | Gastroenterology Progress Note ---
Assessment and Plan 1.coffee-ground emesis 2.acute respiratory failure 3.septic shock 4.pneumonia 5.recent CVA (s/p CEA) -HGB 8.4-stable -continue to monitor H/H and transfuse as needed -no active signs of bleeding overnight or this am -EGD/PEG 11/06 -s/p repeat EGD yesterday that revealed a 4-5cm HH, gastritis, and 10mm linear ulcer in proximal lesser curvature with erythema but no bleeding stigmata -continue PPI BID -okay to resume feedings -okay to resume anticoagulation in 2-3 days as needed -continue supportive care -no further GI recommendations at this time -will sign off, please call if needed Subjective Date of service: 11/19/17 Principal diagnosis: coffee-ground emesis Interval history: No acute distress. No active signs of bleeding overnight or this am per nursing. Objective - Constitutional Vitals: Temp Pulse Resp BP Pulse Ox 98.4 F 96 H 21 128/65 100 11/19/17 12:00 11/19/17 14:00 11/19/17 14:00 11/19/17 14:00 11/19/17 14:00 General appearance: no acute distress, other (intubated) - Respiratory Respiratory: bilateral: diminished - Cardiovascular Rhythm: regular Heart Sounds: Present: S1 & S2 - Gastrointestinal General gastrointestinal: Present: soft, non-distended, normal bowel sounds, other (+PEG) - Labs CBC & Chem 7: 11/19/17 04:44 11/19/17 04:44 Labs: Laboratory Results - last 24 hr 11/19/17 11/19/17 04:44 04:44 WBC 19.0 H RBC 3.20 L Hgb 8.4 L Hct 27.9 L MCV 87 MCH 26 L MCHC 30 L RDW 19.1 H Plt Count 394 Sodium 152 H Potassium 3.6 Chloride 117.1 H Carbon Dioxide 17 L Anion Gap 22 BUN 66 H Creatinine 2.8 H Estimated GFR 27 BUN/Creatinine Ratio 24 Glucose 119 H Calcium 7.8 L Magnesium 2.70 H
[2017-11-19] MEDS ORDERED: PANCREAZE DR 10,500 UNIT FEEDTUBE PRN (14:46)
[2017-11-19] MEDS ORDERED: SIMPLE SYRUP FEEDTUBE PRN ×2 (14:46)
[2017-11-19] MEDS ORDERED: SODIUM BICARBONATE FEEDTUBE PRN (14:46)
--- NOTE | 2017-11-19 14:57 | Progress Note ---
Assessment and Plan Assessment * Hypernatremia * Nonoliguric acute kidney injury secondary to dehydration * Hypokalemia * Anemia * Acute CVA * s/p CEA * Encephalopathy Plan: * Renal function is gradually improving * Continue free H2O w/ TF * Continue D5W w/ 20meq KCl at current rate * Strict I/O * Avoid potential nephrptoxins * Dose medications for renal function * Replete lytes prn * Avoid nephrotoxins Subjective Date of service: 11/19/17 Principal diagnosis: coffee-ground emesis Interval history: No acute events overnight. Objective - Vital Signs Vital signs: Vital Signs - 12hr 11/19/17 11/19/17 11/19/17 03:00 04:00 04:23 Temperature 98.8 F Pulse Rate 135 H 102 H 96 H Pulse Rate [ Right From Monitor] Respiratory 25 H 22 Rate Blood Pressure 140/74 94/62 102/63 O2 Sat by Pulse 100 98 100 Oximetry 11/19/17 11/19/17 11/19/17 05:00 06:00 07:00 Temperature Pulse Rate 94 H 105 H 83 Pulse Rate [ Right From Monitor] Respiratory 20 24 20 Rate Blood Pressure 106/62 116/77 112/67 O2 Sat by Pulse 100 100 100 Oximetry 11/19/17 11/19/17 11/19/17 08:00 09:00 09:02 Temperature 98.6 F Pulse Rate 100 H 90 86 Pulse Rate [ 84 Right From Monitor] Respiratory 18 19 Rate Blood Pressure 122/70 108/68 114/59 O2 Sat by Pulse 100 100 100 Oximetry 11/19/17 11/19/17 11/19/17 10:00 11:00 12:00 Temperature 98.4 F Pulse Rate 76 94 H 93 H Pulse Rate [ 95 H Right From Monitor] Respiratory 20 19 20 Rate Blood Pressure 114/58 115/70 130/73 O2 Sat by Pulse 100 100 100 Oximetry 11/19/17 11/19/17 11/19/17 13:00 13:11 14:00 Temperature Pulse Rate 102 H 93 H 96 H Pulse Rate [ Right From Monitor] Respiratory 20 21 Rate Blood Pressure 146/72 127/67 128/65 O2 Sat by Pulse 100 100 100 Oximetry - General Appearance General appearance: well-developed EENT: ATNC Respiratory: Present: Decreased Breath Sounds Cardiology: regular, S1S2 Gastrointestinal: normal, no tenderness, no distended Musculoskeletal: other (no edema) Psychiatric: cooperative - Lab 11/19/17 04:44 11/19/17 04:44 Most recent lab results Calcium 7.8 mg/dL (8.4-10.2) L 11/19/17 04:44 Magnesium 2.70 mg/dL (1.7-2.3) H 11/19/17 04:44
--- NOTE | 2017-11-19 20:29 | Progress Note ---
Assessment and Plan - Patient Problems (1) Ventilator dependence Current Visit: Yes Status: Acute Plan to address problem: ween as tolerated (2) Acute respiratory failure with hypoxemia Current Visit: Yes Status: Acute Plan to address problem: Titrate O2 to keep sat.+92% (3) Respiratory failure Current Visit: No Status: Acute Plan to address problem: tracheotomy in am Subjective Date of service: 11/19/17 Principal diagnosis: coffee-ground emesis Interval history: Pt. resting comfortably, sedated. Objective - Constitutional Vitals: Vital Signs - 12hr 11/19/17 11/19/17 11/19/17 09:00 09:02 10:00 Temperature Pulse Rate 90 86 76 Pulse Rate [ Right From Monitor] Respiratory 19 20 Rate Blood Pressure 108/68 114/59 114/58 O2 Sat by Pulse 100 100 100 Oximetry 11/19/17 11/19/17 11/19/17 11:00 12:00 13:00 Temperature 98.4 F Pulse Rate 94 H 93 H 102 H Pulse Rate [ 95 H Right From Monitor] Respiratory 19 20 20 Rate Blood Pressure 115/70 130/73 146/72 O2 Sat by Pulse 100 100 100 Oximetry 11/19/17 11/19/17 11/19/17 13:11 14:00 15:00 Temperature Pulse Rate 93 H 96 H 83 Pulse Rate [ Right From Monitor] Respiratory 21 23 Rate Blood Pressure 127/67 128/65 129/67 O2 Sat by Pulse 100 100 100 Oximetry 11/19/17 11/19/17 11/19/17 16:00 16:32 17:00 Temperature 98.6 F Pulse Rate 95 H 99 H 91 H Pulse Rate [ 91 H Right From Monitor] Respiratory 22 21 Rate Blood Pressure 137/73 145/71 136/68 O2 Sat by Pulse 100 100 100 Oximetry 11/19/17 20:03 Temperature Pulse Rate 94 H Pulse Rate [ Right From Monitor] Respiratory Rate Blood Pressure 118/66 O2 Sat by Pulse 100 Oximetry General appearance: Present: no acute distress - EENT Eyes: PERRL ENT: hearing intact, clear oral mucosa, other (ET in place) Ears: bilateral: other (pinna w/o breakdown) - Neck Neck: supple, other (trache midline) - Respiratory Respiratory effort: normal, other (on vent) - Breasts Breasts: deferred - Cardiovascular Rhythm: regular Heart Sounds: Present: S1 & S2 Extremities: no ischemia Extremity abnormal: edema - Gastrointestinal General gastrointestinal: Present: soft, non-tender Rectal Exam: deferred - Genitourinary Male genitourinary: deferred - Integumentary Integumentary: clear, warm, dry - Musculoskeletal Musculoskeletal: other (sedated) - Neurologic Neurologic: other (sedated) - Psychiatric Psychiatric: other (sedated) - Labs CBC & Chem 7: 11/19/17 04:44 11/19/17 04:44 Labs: Abnormal lab results 11/19/17 11/19/17 Range/Units 04:44 04:44 WBC 19.0 H (4.5-11.0) K/mm3 RBC 3.20 L (3.65-5.03) M/mm3 Hgb 8.4 L (11.8-15.2) gm/dl Hct 27.9 L (35.5-45.6) % MCH 26 L (28-32) pg MCHC 30 L (32-34) % RDW 19.1 H (13.2-15.2) % Sodium 152 H (137-145) mmol/L Chloride 117.1 H (98-107) mmol/L Carbon Dioxide 17 L (22-30) mmol/L BUN 66 H (9-20) mg/dL Creatinine 2.8 H (0.8-1.5) mg/dL Glucose 119 H (75-100) mg/dL Calcium 7.8 L (8.4-10.2) mg/dL Magnesium 2.70 H (1.7-2.3) mg/dL
--- NOTE | 2017-11-19 21:48 | Anesthesia Consultation ---
Anesthesia Consult and Med Hx Date of service: 11/19/17 - Airway Mental/Hyoid Distance: Adequate - Pulmonary Exam CTA: Yes - Cardiac Exam Cardiac Exam: RRR (tachycardic) - Pre-Operative Health Status ASA Pre-Surgery Classification: ASA4 Proposed Anesthetic Plan: General - Pre-Anesthesia Comment Pre-Anesthesia Comments: 7.5oETT in situ. Vent settings: [id number] 30%/ Peep 6 - Pulmonary Hx Smoking: Yes Hx Asthma: No COPD: No Hx Pneumonia: Yes (aspiration PNA; recent CXR clear) - Cardiovascular System Hx Hypertension: Yes Hx Coronary Artery Disease: Yes (nonobstructive) Hx Pacemaker: No Hx Internal Defibrillator: No - Central Nervous System CVA: Yes (Multiple; most recent 09/2017 after carotid surgery) - Gastrointestinal Hx Ulcer: Yes (hiatal hernia, gastritis, and linear gastric ulcer noted on recent EGD) - Endocrine Hx Renal Disease: Yes (DARYA complicated by hypernatremia) Hx End Stage Renal Disease: No Hx Liver Disease: No Hx Insulin Dependent Diabetes: No Hx Thyroid Disease: No - Hematic Hx Anemia: Yes - Additional Comments Anesthesia Medical History Comments: PMH HTN, nonobstructive CAD, multiple prior CVAs who originally presented in 09/2017 with CVA 2/2 carotid stenosis. He underwent vascular surgery x2 with post op course complicated by massive MCA CVA and encephalopathy. He was discharge to nursing facility and readmitted 11/12 with sepsis 2/2 aspiration PNA. He is now scheduled for trach placement. Anesthesia consent obtained from Jannette Wiseman (daughter, KILEY) via telephone.
[2017-11-20 01:17] LABS: Hematocrit 26.4 % (35.5-45.6); Hemoglobin 7.9 gm/dl (11.8-15.2); Mean Corpuscular HGB Conc 30 % (32-34); Mean Corpuscular Volume 83 fl (84-94); Platelet Count 440 K/mm3 (140-440); Red Blood Count 3.17 M/mm3 (3.65-5.03); Red Cell Distribution Width 18.9 % (13.2-15.2)
[2017-11-20 01:25] LABS: Mean Corpuscular Hemoglobin 25 pg (28-32)
[2017-11-20 04:02] LABS: Anisocytosis 1+; Band Neutrophils # (Manual) 0.9 K/mm3; Basophils % (Manual) 0 % (0.0-1.8); Eosinophils % (Manual) 0 % (0.0-4.3); Hypochromasia 1+; Macrocytosis Few; Platelet Clumps Few; Platelet Estimate Consistent w Auto; Total Cells Counted 100
[2017-11-20 04:40] LABS: Calcium 7.8 mg/dL (8.4-10.2)
[2017-11-20] MEDS ORDERED: XYLOCAINE 1%/ EPI 1:100,000 INFILTRATI ONE ×2 (07:17→08:28)
[2017-11-20] MEDS ORDERED: SUBLIMAZE ONE (07:55)
[2017-11-20] MEDS ORDERED: ZEMURON IV ONE (08:20)
[2017-11-20] MEDS ORDERED: ANCEF ONE (08:20)
[2017-11-20] MEDS ORDERED: NACL 0.9% IR ONE (08:28)
--- NOTE | 2017-11-20 08:40 | Progress Note ---
Assessment and Plan Acute respiratory failure. multifactorial, sepsis, aspiration pneumonia, mucous plugging GI bleeding. Peptic ulcer on EDG. Okay to start by mouth feedings but aspirin and Plavix not indicated at this time Sepsis,high WBC. Chest x-ray unremarkable,no infiltrates AMS. Probably combination of sepsis, metabolic encephalopathy from prior brain injury Stroke Hypernatremia- improved Acute kidney injury. Worsening creatinine Recommendations Continue D5W gtt, PO mouth water sips Scheduled for trach,needed for weaning. Discussed yesterday with patient daughter. See GI recommendations Still needs tracheotomy, in order to wean from ventilator support. I do not anticipate the patient will be weaned off without trach. Maintain extubation precautions Called off bronchoscopy in view the of patient's chest x-ray findings No family available. Will Will leave message for case discussion Critical care time was 31 minutes of [id number] evaluation and coordination of care Subjective Date of service: 11/20/17 Principal diagnosis: coffee-ground emesis Interval history: Intubated Objective Vital Signs - 12hr 11/19/17 11/19/17 11/19/17 21:00 22:00 23:00 Temperature Pulse Rate 97 H 106 H 106 H Pulse Rate [ Right From Monitor] Respiratory 23 47 H 27 H Rate Blood Pressure 120/70 132/74 129/76 O2 Sat by Pulse 99 99 98 Oximetry 11/20/17 11/20/17 11/20/17 00:00 00:33 01:00 Temperature 98.7 F Pulse Rate 98 H 91 H 105 H Pulse Rate [ 91 H Right From Monitor] Respiratory 24 13 Rate Blood Pressure 133/81 133/81 118/75 O2 Sat by Pulse 100 100 100 Oximetry 11/20/17 11/20/17 11/20/17 01:08 02:00 03:00 Temperature Pulse Rate 124 H 95 H 89 Pulse Rate [ Right From Monitor] Respiratory 25 H 21 21 Rate Blood Pressure 167/88 124/77 110/70 O2 Sat by Pulse 100 99 99 Oximetry 11/20/17 11/20/17 11/20/17 03:44 04:00 04:21 Temperature 99.7 F H 98.3 F Pulse Rate 93 H Pulse Rate [ Right From Monitor] Respiratory 20 Rate Blood Pressure 114/66 O2 Sat by Pulse 100 Oximetry 11/20/17 11/20/17 11/20/17 04:42 05:00 06:00 Temperature Pulse Rate 76 81 83 Pulse Rate [ Right From Monitor] Respiratory 20 20 Rate Blood Pressure 122/70 121/62 116/63 O2 Sat by Pulse 100 100 100 Oximetry 11/20/17 11/20/17 11/20/17 07:00 07:30 08:00 Temperature 98.4 F Pulse Rate 91 H 100 H Pulse Rate [ 94 H Right From Monitor] Respiratory 19 Rate Blood Pressure 127/71 146/75 O2 Sat by Pulse 99 100 Oximetry Constitutional: lethargic, other (intubated) Eyes: non-icteric ENT: oropharynx moist, other (ETT at 24 cm) Neck: supple, no JVD Ascultation: Bilateral: rhonchi (sporadic) Cardiovascular: regular rate and rhythm, other (tachycardic) Gastrointestinal: normoactive bowel sounds, non-distended Integumentary: normal Extremities: no cyanosis, no edema, other (RT femoral line in place) Neurologic: unable to assess (opens eyes spontaneously but does not follow commands . ) CBC and BMP: 11/20/17 00:38 11/20/17 03:29 ABG, PT/INR, D-dimer: ABG POC ABG pH 7.428 (7.35-7.45) 11/20/17 04:48 POC ABG pCO2 29.4 (35-45) L 11/20/17 04:48 POC ABG pO2 104 (80-105) 11/20/17 04:48 POC ABG HCO3 19.4 11/20/17 04:48 POC ABG Total CO2 20 11/20/17 04:48 POC ABG O2 Sat 98 11/20/17 04:48 PT/INR, D-dimer PT 16.7 Sec. (12.2-14.9) H 11/18/17 04:34 INR 1.30 (0.87-1.13) H 11/18/17 04:34 Abnormal lab findings: Abnormal Labs 11/11/17 11/11/17 11/11/17 23:18 23:20 23:20 WBC RBC Hgb 10.4 L Hct 32.6 L D MCV MCH 27 L MCHC RDW 17.4 H Plt Count 105 L Lymph % (Auto) [place] % (Auto) Lymph # [place] # Seg Neutrophils % Seg Neuts % (Manual) Lymphocytes % (Manual) 8.0 L Monocytes % (Manual) Nucleated RBC % 1.0 H Seg Neutrophils # Seg Neutrophils # Man Lymphocytes # (Manual) 0.7 L Monocytes # (Manual) PT INR POC ABG pH 7.550 H POC ABG pCO2 31.6 L POC ABG pO2 Sodium 146 H Potassium Chloride Carbon Dioxide BUN 26 H Creatinine 1.7 H D Glucose 133 H Lactic Acid Calcium Magnesium Troponin T 0.117 H* C-Reactive Protein Albumin 2.5 L LDL Cholesterol Direct 42 L HDL Cholesterol 24 L 11/11/17 11/12/17 11/12/17 23:20 00:23 00:23 WBC RBC Hgb Hct MCV MCH MCHC RDW Plt Count Lymph % (Auto) [place] % (Auto) Lymph # [place] # Seg Neutrophils % Seg Neuts % (Manual) Lymphocytes % (Manual) Monocytes % (Manual) Nucleated RBC % Seg Neutrophils # Seg Neutrophils # Man Lymphocytes # (Manual) Monocytes # (Manual) PT 16.7 H INR 1.28 H POC ABG pH POC ABG pCO2 POC ABG pO2 Sodium Potassium Chloride Carbon Dioxide BUN Creatinine Glucose Lactic Acid 3.20 H* Calcium Magnesium Troponin T C-Reactive Protein 25.70 H Albumin LDL Cholesterol Direct HDL Cholesterol 11/12/17 11/12/17 11/12/17 00:46 01:27 01:27 WBC RBC Hgb Hct MCV MCH MCHC RDW Plt Count Lymph % (Auto) [place] % (Auto) Lymph # [place] # Seg Neutrophils % Seg Neuts % (Manual) Lymphocytes % (Manual) Monocytes % (Manual) Nucleated RBC % Seg Neutrophils # Seg Neutrophils # Man Lymphocytes # (Manual) Monocytes # (Manual) PT INR POC ABG pH 7.495 H POC ABG pCO2 32.0 L POC ABG pO2 64 L Sodium Potassium Chloride Carbon Dioxide BUN Creatinine Glucose Lactic Acid 3.70 H* Calcium Magnesium Troponin T 0.096 H C-Reactive Protein Albumin LDL Cholesterol Direct HDL Cholesterol 11/12/17 11/12/17 11/12/17 03:21 04:50 06:27 WBC RBC Hgb Hct MCV MCH MCHC RDW Plt Count Lymph % (Auto) [place] % (Auto) Lymph # [place] # Seg Neutrophils % Seg Neuts % (Manual) Lymphocytes % (Manual) Monocytes % (Manual) Nucleated RBC % Seg Neutrophils # Seg Neutrophils # Man Lymphocytes # (Manual) Monocytes # (Manual) PT INR POC ABG pH POC ABG pCO2 POC ABG pO2 109 H Sodium Potassium Chloride Carbon Dioxide BUN Creatinine Glucose Lactic Acid 3.80 H* 2.20 H* Calcium Magnesium Troponin T C-Reactive Protein Albumin LDL Cholesterol Direct HDL Cholesterol 11/12/17 11/12/17 11/12/17 09:24 09:24 09:24 WBC RBC Hgb 10.4 L Hct 33.4 L MCV MCH MCHC RDW Plt Count Lymph % (Auto) [place] % (Auto) Lymph # [place] # Seg Neutrophils % Seg Neuts % (Manual) Lymphocytes % (Manual) Monocytes % (Manual) Nucleated RBC % Seg Neutrophils # Seg Neutrophils # Man Lymphocytes # (Manual) Monocytes # (Manual) PT INR POC ABG pH POC ABG pCO2 POC ABG pO2 Sodium Potassium Chloride Carbon Dioxide BUN Creatinine Glucose Lactic Acid 2.90 H* Calcium Magnesium Troponin T 0.091 H C-Reactive Protein Albumin LDL Cholesterol Direct HDL Cholesterol 11/12/17 11/12/17 11/12/17 12:56 20:03 Unknown WBC RBC Hgb Hct MCV MCH MCHC RDW Plt Count Lymph % (Auto) [place] % (Auto) Lymph # [place] # Seg Neutrophils % Seg Neuts % (Manual) Lymphocytes % (Manual) Monocytes % (Manual) Nucleated RBC % Seg Neutrophils # Seg Neutrophils # Man Lymphocytes # (Manual) Monocytes # (Manual) PT INR POC ABG pH POC ABG pCO2 POC ABG pO2 Sodium Potassium Chloride Carbon Dioxide BUN Creatinine Glucose Lactic Acid 3.60 H* Calcium Magnesium Troponin T 0.102 H* 0.156 H* D C-Reactive Protein Albumin LDL Cholesterol Direct HDL Cholesterol 11/12/17 11/13/17 11/13/17 Unknown 04:50 04:50 WBC 12.2 H RBC 3.51 L Hgb 9.3 L Hct 30.1 L MCV MCH 26 L MCHC 31 L RDW 18.0 H Plt Count 128 L Lymph % (Auto) 8.6 L [place] % (Auto) 11.1 H Lymph # 1.1 L [place] # 1.4 H Seg Neutrophils % 80.1 H Seg Neuts % (Manual) Lymphocytes % (Manual) Monocytes % (Manual) Nucleated RBC % Seg Neutrophils # 9.8 H Seg Neutrophils # Man Lymphocytes # (Manual) Monocytes # (Manual) PT INR POC ABG pH POC ABG pCO2 POC ABG pO2 Sodium 149 H Potassium 5.1 H Chloride 114.4 H Carbon Dioxide 18 L BUN 52 H Creatinine 3.3 H D Glucose 129 H Lactic Acid Calcium 7.9 L Magnesium Troponin T 0.098 H C-Reactive Protein Albumin LDL Cholesterol Direct HDL Cholesterol 11/13/17 11/13/17 11/14/17 04:51 09:34 04:21 WBC RBC Hgb Hct MCV MCH MCHC RDW Plt Count Lymph % (Auto) [place] % (Auto) Lymph # [place] # Seg Neutrophils % Seg Neuts % (Manual) Lymphocytes % (Manual) Monocytes % (Manual) Nucleated RBC % Seg Neutrophils # Seg Neutrophils # Man Lymphocytes # (Manual) Monocytes # (Manual) PT INR POC ABG pH POC ABG pCO2 30.1 L 29.8 L POC ABG pO2 135 H Sodium Potassium Chloride Carbon Dioxide BUN Creatinine Glucose Lactic Acid 2.10 H* Calcium Magnesium Troponin T C-Reactive Protein Albumin LDL Cholesterol Direct HDL Cholesterol 11/15/17 11/15/17 11/16/17 04:52 15:50 05:17 WBC RBC Hgb Hct MCV MCH MCHC RDW Plt Count Lymph % (Auto) [place] % (Auto) Lymph # [place] # Seg Neutrophils % Seg Neuts % (Manual) Lymphocytes % (Manual) Monocytes % (Manual) Nucleated RBC % Seg Neutrophils # Seg Neutrophils # Man Lymphocytes # (Manual) Monocytes # (Manual) PT INR POC ABG pH POC ABG pCO2 29.5 L 31.5 L POC ABG pO2 115 H 122 H Sodium 154 H Potassium Chloride 117.9 H Carbon Dioxide 19 L BUN 87 H Creatinine 4.1 H Glucose Lactic Acid Calcium 8.1 L Magnesium Troponin T C-Reactive Protein Albumin LDL Cholesterol Direct HDL Cholesterol 11/16/17 11/17/17 11/17/17 16:37 04:07 10:00 WBC 14.7 H RBC 3.23 L Hgb 8.3 L Hct 28.1 L MCV MCH 26 L MCHC 30 L RDW 18.8 H Plt Count Lymph % (Auto) [place] % (Auto) Lymph # [place] # Seg Neutrophils % Seg Neuts % (Manual) 75 H Lymphocytes % (Manual) 8.0 L Monocytes % (Manual) Nucleated RBC % 1.0 H Seg Neutrophils # Seg Neutrophils # Man 11.0 H Lymphocytes # (Manual) Monocytes # (Manual) 0.9 H PT INR POC ABG pH POC ABG pCO2 POC ABG pO2 Sodium 153 H 155 H Potassium Chloride 117.3 H 119.4 H Carbon Dioxide 19 L 20 L BUN 90 H 89 H Creatinine 3.9 H 3.6 H Glucose 111 H 115 H Lactic Acid Calcium 8.1 L 8.0 L Magnesium Troponin T C-Reactive Protein Albumin LDL Cholesterol Direct HDL Cholesterol 11/18/17 11/18/17 11/18/17 04:34 04:34 04:34 WBC 15.5 H RBC 3.13 L Hgb 8.1 L Hct 26.3 L MCV MCH 26 L MCHC 31 L RDW 18.6 H Plt Count Lymph % (Auto) [place] % (Auto) Lymph # [place] # Seg Neutrophils % Seg Neuts % (Manual) 81.0 H Lymphocytes % (Manual) 7.0 L Monocytes % (Manual) Nucleated RBC % 1.0 H Seg Neutrophils # Seg Neutrophils # Man 12.6 H Lymphocytes # (Manual) 1.1 L Monocytes # (Manual) PT 16.7 H INR 1.30 H POC ABG pH POC ABG pCO2 POC ABG pO2 Sodium 155 H Potassium 3.2 L Chloride 121.0 H Carbon Dioxide 20 L BUN 74 H Creatinine 2.9 H Glucose 126 H Lactic Acid Calcium 7.9 L Magnesium Troponin T C-Reactive Protein Albumin LDL Cholesterol Direct HDL Cholesterol 11/19/17 11/19/17 11/20/17 04:44 04:44 00:38 WBC 19.0 H 22.2 H RBC 3.20 L 3.17 L Hgb 8.4 L 7.9 L Hct 27.9 L 26.4 L MCV 83 L MCH 26 L 25 L MCHC 30 L 30 L RDW 19.1 H 18.9 H Plt Count Lymph % (Auto) [place] % (Auto) Lymph # [place] # Seg Neutrophils % Seg Neuts % (Manual) 83.0 H Lymphocytes % (Manual) 3.0 L Monocytes % (Manual) 9.0 H Nucleated RBC % Seg Neutrophils # Seg Neutrophils # Man 18.4 H Lymphocytes # (Manual) 0.7 L Monocytes # (Manual) 2.0 H PT INR POC ABG pH POC ABG pCO2 POC ABG pO2 Sodium 152 H Potassium Chloride 117.1 H Carbon Dioxide 17 L BUN 66 H Creatinine 2.8 H Glucose 119 H Lactic Acid Calcium 7.8 L Magnesium 2.70 H Troponin T C-Reactive Protein Albumin LDL Cholesterol Direct HDL Cholesterol 11/20/17 11/20/17 03:29 04:48 WBC RBC Hgb Hct MCV MCH MCHC RDW Plt Count Lymph % (Auto) [place] % (Auto) Lymph # [place] # Seg Neutrophils % Seg Neuts % (Manual) Lymphocytes % (Manual) Monocytes % (Manual) Nucleated RBC % Seg Neutrophils # Seg Neutrophils # Man Lymphocytes # (Manual) Monocytes # (Manual) PT INR POC ABG pH POC ABG pCO2 29.4 L POC ABG pO2 Sodium 148 H Potassium 3.4 L Chloride 113.7 H Carbon Dioxide 18 L BUN 59 H Creatinine 2.7 H Glucose 113 H Lactic Acid Calcium 7.8 L Magnesium Troponin T C-Reactive Protein Albumin LDL Cholesterol Direct HDL Cholesterol
[2017-11-20] MEDS ORDERED: HYDROGEN PEROXIDE IRRIGATION ONE (09:13)
[2017-11-20] MEDS ORDERED: HYDROGEN PEROXIDE ONE (09:15)
[2017-11-20] MEDS ORDERED: ROBINUL ONE (09:21)
[2017-11-20] MEDS ORDERED: BLOXIVERZ ONE ×2 (09:21→11:23)
--- NOTE | 2017-11-20 09:25 | Post Operative Note ---
Pre-op diagnosis: Resp failure & vent. dep Post-op diagnosis: same Findings: calcified trachea Procedure: tracheostomy Anesthesia: GETA Surgeon: VELASQUEZ MILES Estimated blood loss: minimal Pathology: none Condition: stable Disposition: PACU
--- NOTE | 2017-11-20 10:02 | Progress Note ---
Assessment and Plan Assessment: 1) Sepsis with transient septic shock: shock resolved, fever resolved, leukocytosis up. Etiology most likely VAP/post-obstructive pneumonia. CRP=25 2) VAP vs post-obstructive pneumonia (mucous mugging) -initial sputum 10/10 Klebsiella -sputum 11/12 usual respiratory estela -CXR showed increased perihilar alveolar density >RLL than LLL. -CTA showed complete atelectasis of the LLL with mediatinal shift to the left due to blockage of the left main bronchus by ETT. 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, placement of recent PEG tube with prolonged recent admission from 10/04-/11/10/17 4) Acute encephalopathy 5) Acute Respiratory failure 6) DARYA 7) Hypernatremia Plan: -s/p zosyn 7 days -monitor off abx I am signing off Thank you for your consultation, will follow up with you. Olga Mercedes MD Infectious Diseases Specialist [facility] M [phone] Subjective Date of service: 11/20/17 Principal diagnosis: coffee-ground emesis Interval history: Remains on the vent on CPAP, fever resolved, no pressors. 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 10/29 neg 11/10 neg 11/12 ngtd Urine cultures: Respiratory cultures: 10/10 Klebsiella 11/12 usual resp estela Current Antimicrobials: Zosyn 11/13 Previous Antimicrobials: Levaquin Objective - Exam Narrative Exam: General appearance: sedated on the vent non verbal on CPAP Eyes: anicteric sclerae, moist conjunctivae; no lid-lag; PERRLA HENT: Atraumatic; oropharynx+ETT +OGT Neck: Trachea midline; supple, no thyromegaly or lymphadenopathy Lungs: scattered rhonchi CV: tachy Abdomen: Soft, distended +PEG Extremities: winnie arms/legs edema Skin: Normal temperature, turgor and texture; no rash, ulcers or subcutaneous nodules Psych: sedated Neuro: sedated Lines: condom cath - Constitutional Vitals: Vital Signs Temp Pulse Resp BP Pulse Ox 99.9 F H 101 H 21 120/69 100 11/20/17 09:41 11/20/17 09:56 11/20/17 09:56 11/20/17 09:56 11/20/17 09:56 Temperature -Last 24 Hours Temperature 99.9 F Temperature 98.4 F Temperature 98.3 F Temperature 99.7 F Temperature 98.7 F Temperature 98.5 F Temperature 98.6 F Temperature 98.4 F - Labs CBC & Chem 7: 11/20/17 00:38 11/20/17 03:29 Labs: Abnormal lab results 11/20/17 11/20/17 11/20/17 Range/Units 00:38 03:29 04:48 WBC 22.2 H (4.5-11.0) K/mm3 RBC 3.17 L (3.65-5.03) M/mm3 Hgb 7.9 L (11.8-15.2) gm/dl Hct 26.4 L (35.5-45.6) % MCV 83 L (84-94) fl MCH 25 L (28-32) pg MCHC 30 L (32-34) % RDW 18.9 H (13.2-15.2) % Seg Neuts % (Manual) 83.0 H (40.0-70.0) % Lymphocytes % (Manual) 3.0 L (13.4-35.0) % Monocytes % (Manual) 9.0 H (0.0-7.3) % Seg Neutrophils # Man 18.4 H (1.8-7.7) K/mm3 Lymphocytes # (Manual) 0.7 L (1.2-5.4) K/mm3 Monocytes # (Manual) 2.0 H (0.0-0.8) K/mm3 POC ABG pCO2 29.4 L (35-45) Sodium 148 H (137-145) mmol/L Potassium 3.4 L (3.6-5.0) mmol/L Chloride 113.7 H (98-107) mmol/L Carbon Dioxide 18 L (22-30) mmol/L BUN 59 H (9-20) mg/dL Creatinine 2.7 H (0.8-1.5) mg/dL Glucose 113 H (75-100) mg/dL Calcium 7.8 L (8.4-10.2) mg/dL
--- NOTE | 2017-11-20 10:49 | XRay Report ---
Single view chest: Compared to 11/19/17. History: Tracheostomy. Findings: Borderline cardiomegaly. Trachea is midline. Tip of tracheostomy tube in normal position. No consolidation, pneumothorax or pleural effusion. Impression: No acute cardiopulmonary findings.
--- NOTE | 2017-11-20 10:59 | Operative Report ---
PREOPERATIVE DIAGNOSES: Respiratory failure and ventilator dependency. POSTOPERATIVE DIAGNOSES: Respiratory failure and ventilator dependency. PROCEDURE: Tracheostomy. SURGEON: Tara Hughes MD BLOOD LOSS: Less than 25 mL. INDICATIONS FOR PROCEDURE: The patient is a 67-year-old man with a history of respiratory failure and ventilator dependency who has failed weaning off the ventilator. He is being brought to the operating room for a tracheostomy. Risks, benefits and alternatives have been explained to his daughter and she accepts them. DESCRIPTION OF PROCEDURE: The patient was brought to the operating room and placed on the operating room table in a supine position. Shoulder roll was placed. The patient was prepped and draped in a sterile fashion. Timeout was done. The anterior neck 2 fingerbreadths above the sternal notch was injected with 5 mL of 1% lidocaine with 1:100,000 epinephrine. Horizontal incision was made 2 fingerbreadths above the sternal notch. Hemostasis was maintained via cautery. A subcutaneous fatpad was dissected free. This brought the dissection down to the strap muscles, which were divided in the midline and retracted laterally. Once this was done, the inferior border of the thyroid and isthmus was noted and freed up and swept superiorly. There was a small pretracheal fat pad, which was divided. A 2-0 Vicryl was insinuated into the inferior aspect of the dissection. The endotracheal tube balloon was deflated and advanced and reinflated. A Wily flap was created and then secured in place with indwelling Vicryl. The endotracheal tube was retracted superiorly just to the opening of the trachea. A size 8 cuffed Shiley tracheostomy tube was insinuated through the new formed tracheostomy site. The obturator was removed. The inner cannula was placed. The patient was ventilated through the new formed tracheostomy site. End-tidal was verified. The balloon was inflated. The skin was protected with OpSite after the wound had been packed with Surgicel. The tracheostomy tube was secured in 4-point fixation with a 2-0 silk. The patient was cleaned. The trach ties were placed. He was transferred back to anesthesia and transferred to the recovery room in stable condition. He tolerated the procedure well without complication. JOB# [id number] COLINP/RENETTA
[2017-11-20] MEDS: PROTONIX (nf) FEEDTUBE SCH (13:20)
[2017-11-20] MEDS: SODIUM CHLORIDE FLUSH SYRINGE 10 ML IV SCH (13:21)
--- NOTE | 2017-11-20 16:04 | Progress Note ---
Assessment and Plan Assessment and plan: Mr. 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 He had a Carotid doppler done that revealed a right ICA 50-79% stenosis. CTA of the neck revealed 80% stenosis of the right ICA with probable 50% stenosis of the origin of the right common carotid artery. His symptoms were thought to be due to the Carotid artery stenosis which was disheartening since he was on Aspirin and plavix. He was scheduled for right CEA but needed Cardiac clearance. 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 So, he underwent right carotid enarterectomy on 10/09/17. Following the surgery, he developed recurrent left sided weakness/hemiparesis was taken to OR again on for Open Thrombectomy of Right Internal Carotid Artery and Injection of TPA into the Distal Artery. CT head obtained on 10/12/17 showed massive right cerebral hemisphere acute CVA with midline shift. He was discharged on 11/10/17 to [facility] but returned to ED on 11/12/17 for sob. He was admitted for Aspiration post-obstructive pneumonia with suspected mucus plug and subsequently intubated on admission. * CTA chest IMPRESSION: There is no thoracic aortic aneurysm or dissection.. There is no pulmonary embolism.. There is complete atelectasis of the left lung causing volume loss and mediastinal shift to the left. This is due to blockage of the left bronchus by the endotracheal tube which is in the right mainstem bronchus. There is no pleural effusion or pneumothorax.. There is pneumoperitoneum and ascites.. Dr. Navarro was notified by telephone at 3:20 a.m. central. * 1v Abd XRAY IMPRESSION: Nasogastric tube ends in the stomach. A PEG tube is identified. Bowel gas pattern is nonobstructive. -Acute hypoxic respiratory failure due to Pneumonia on MV>96 hours s/p Tracheostomy 10/23/17: continue MV, daily weaning attempt -Leukocyotosis with Sepsis with transient septic shock, poa: shock resolved, continue abx, ID is following -Aspiration pneumonia, with mucus plugging/post obstructive pna poa: Sole Buffer is following, following sunction protocols -Acute encephalopathy: treat supportively -Hypernatremia: treat with free water, monitor bmp closely -Hypokalemia: replace and monitor closely -ARF vasomotor nephropathy, poa: IV fluids, monitor bmp closely -Dysphagia with aspiration: s/p peg tube -Acute on chronic blood loss anemia w/Coffee-ground material from peg tube: GI is following, treat with ppi iv bid, EGD done 11/18/17 showed 8 mm cratered, 10 mm linear ulcer proximal lesser curvature with erythema but no other bleeding stigmata, gastritis and 4-5 cm hiatal hernia -Advance care planning: full code History Interval history: Patient was seen and examined. Follow-up on current diagnosis of respiratory failure. Overnight uneventful. Intubated. Imaging, nursing note, chart, labs and old chart reviewed. Hospitalist Physical - Physical exam Narrative exam: GEN: ill appearing, not sedated, on MV HEENT: NCAT, pupils reactive, anicteric, NECK: supple, no adenopathy, no thyromegaly, no JVD, trach in place CVS/HEART: RRR, normal S1S2, pulses present bilaterally CHEST/LUNGS: Symmetrical chest expansion, good air entry bilaterally GI/Abdomen: soft, distended, pbs, +peg tube in place /Bladder: no suprapubic tenderness, no CVA or paraspinal tenderness EXT/Skin: generalized edema x 4 MSK: left hemiparesis Neuro: CN 2-12 unable to access, doesn't follow commands Psych: confused - Constitutional Vitals: Temp Pulse Resp BP Pulse Ox 98.7 F 93 H 23 108/67 98 11/20/17 12:00 11/20/17 15:03 11/20/17 15:00 11/20/17 15:03 11/20/17 15:03 General appearance: Present: no acute distress Results - Labs CBC & Chem 7: 11/20/17 00:38 11/20/17 03:29 Labs: Laboratory Last Values WBC 22.2 K/mm3 (4.5-11.0) H 11/20/17 00:38 RBC 3.17 M/mm3 (3.65-5.03) L 11/20/17 00:38 Hgb 7.9 gm/dl (11.8-15.2) L 11/20/17 00:38 Hct 26.4 % (35.5-45.6) L 11/20/17 00:38 MCV 83 fl (84-94) L 11/20/17 00:38 MCH 25 pg (28-32) L 11/20/17 00:38 MCHC 30 % (32-34) L 11/20/17 00:38 RDW 18.9 % (13.2-15.2) H 11/20/17 00:38 Plt Count 440 K/mm3 (140-440) 11/20/17 00:38 Lymph % (Auto) 8.6 % (13.4-35.0) L 11/13/17 04:50 [place] % (Auto) 11.1 % (0.0-7.3) H 11/13/17 04:50 Eos % (Auto) 0.0 % (0.0-4.3) 11/13/17 04:50 Baso % (Auto) 0.2 % (0.0-1.8) 11/13/17 04:50 Lymph # 1.1 K/mm3 (1.2-5.4) L 11/13/17 04:50 [place] # 1.4 K/mm3 (0.0-0.8) H 11/13/17 04:50 Eos # 0.0 K/mm3 (0.0-0.4) 11/13/17 04:50 Baso # 0.0 K/mm3 (0.0-0.1) 11/13/17 04:50 Add Manual Diff Complete 11/20/17 00:38 Total Counted 100 11/20/17 00:38 Seg Neutrophils % 80.1 % (40.0-70.0) H 11/13/17 04:50 Seg Neuts % (Manual) 83.0 % (40.0-70.0) H 11/20/17 00:38 Band Neutrophils % 4.0 % 11/20/17 00:38 Lymphocytes % (Manual) 3.0 % (13.4-35.0) L 11/20/17 00:38 Reactive Lymphs % (Man) 0 % 11/20/17 00:38 Monocytes % (Manual) 9.0 % (0.0-7.3) H 11/20/17 00:38 Eosinophils % (Manual) 0 % (0.0-4.3) 11/20/17 00:38 Basophils % (Manual) 0 % (0.0-1.8) 11/20/17 00:38 Metamyelocytes % 1.0 % 11/20/17 00:38 Myelocytes % 0 % 11/20/17 00:38 Promyelocytes % 0 % 11/20/17 00:38 Blast Cells % 0 % 11/20/17 00:38 Nucleated RBC % Not Reportable 11/20/17 00:38 Seg Neutrophils # 9.8 K/mm3 (1.8-7.7) H 11/13/17 04:50 Seg Neutrophils # Man 18.4 K/mm3 (1.8-7.7) H 11/20/17 00:38 Band Neutrophils # 0.9 K/mm3 11/20/17 00:38 Lymphocytes # (Manual) 0.7 K/mm3 (1.2-5.4) L 11/20/17 00:38 Abs React Lymphs (Man) 0.0 K/mm3 11/20/17 00:38 Monocytes # (Manual) 2.0 K/mm3 (0.0-0.8) H 11/20/17 00:38 Eosinophils # (Manual) 0.0 K/mm3 (0.0-0.4) 11/20/17 00:38 Basophils # (Manual) 0.0 K/mm3 (0.0-0.1) 11/20/17 00:38 Metamyelocytes # 0.2 K/mm3 11/20/17 00:38 Myelocytes # 0.0 K/mm3 11/20/17 00:38 Promyelocytes # 0.0 K/mm3 11/20/17 00:38 Blast Cells # 0.0 K/mm3 11/20/17 00:38 WBC Morphology Not Reportable 11/20/17 00:38 Hypersegmented Neuts Not Reportable 11/20/17 00:38 Hyposegmented Neuts Not Reportable 11/20/17 00:38 Hypogranular Neuts Not Reportable 11/20/17 00:38 Smudge Cells Not Reportable 11/20/17 00:38 Toxic Granulation Not Reportable 11/20/17 00:38 Toxic Vacuolation Not Reportable 11/20/17 00:38 Dohle Bodies Not Reportable 11/20/17 00:38 Pelger-Huet Anomaly Not Reportable 11/20/17 00:38 Evangelina Rods Not Reportable 11/20/17 00:38 Platelet Estimate Consistent w auto 11/20/17 00:38 Clumped Platelets Few 11/20/17 00:38 Plt Clumps, EDTA Not Reportable 11/20/17 00:38 Large Platelets Not Reportable 11/20/17 00:38 Giant Platelets Not Reportable 11/20/17 00:38 Platelet Satelliting Not Reportable 11/20/17 00:38 Plt Morphology Comment Not Reportable 11/20/17 00:38 RBC Morphology Not Reportable 11/20/17 00:38 Dimorphic RBCs Not Reportable 11/20/17 00:38 Polychromasia Not Reportable 11/20/17 00:38 Hypochromasia 1+ 11/20/17 00:38 Poikilocytosis Not Reportable 11/20/17 00:38 Anisocytosis 1+ 11/20/17 00:38 Microcytosis Few 11/20/17 00:38 Macrocytosis Few 11/20/17 00:38 Spherocytes Not Reportable 11/20/17 00:38 Pappenheimer Bodies Not Reportable 11/20/17 00:38 Sickle Cells Not Reportable 11/20/17 00:38 Target Cells Not Reportable 11/20/17 00:38 Tear Drop Cells Not Reportable 11/20/17 00:38 Ovalocytes Not Reportable 11/20/17 00:38 Stomatocytes Few 11/18/17 04:34 Helmet Cells Not Reportable 11/20/17 00:38 Dukes-Shaw Bodies Not Reportable 11/20/17 00:38 Joice Rings Not Reportable 11/20/17 00:38 [place] Cells Not Reportable 11/20/17 00:38 Bite Cells Not Reportable 11/20/17 00:38 Crenated Cell Not Reportable 11/20/17 00:38 Elliptocytes Not Reportable 11/20/17 00:38 Acanthocytes (Spur) Not Reportable 11/20/17 00:38 Rouleaux Not Reportable 11/20/17 00:38 Hemoglobin C Crystals Not Reportable 11/20/17 00:38 Schistocytes Not Reportable 11/20/17 00:38 Malaria parasites Not Reportable 11/20/17 00:38 [place] Bodies Not Reportable 11/20/17 00:38 Hem Pathologist Commnt No 11/20/17 00:38 PT 16.7 Sec. (12.2-14.9) H 11/18/17 04:34 INR 1.30 (0.87-1.13) H 11/18/17 04:34 APTT 31.7 Sec. (24.2-36.6) 11/12/17 00:23 POC ABG pH 7.428 (7.35-7.45) 11/20/17 04:48 POC ABG pCO2 29.4 (35-45) L 11/20/17 04:48 POC ABG pO2 104 (80-105) 11/20/17 04:48 POC ABG HCO3 19.4 11/20/17 04:48 POC ABG Total CO2 20 11/20/17 04:48 POC ABG O2 Sat 98 11/20/17 04:48 POC ABG Base Excess -5 11/20/17 04:48 FiO2 30 % 11/20/17 04:48 Sodium 148 mmol/L (137-145) H 11/20/17 03:29 Potassium 3.4 mmol/L (3.6-5.0) L 11/20/17 03:29 Chloride 113.7 mmol/L (98-107) H 11/20/17 03:29 Carbon Dioxide 18 mmol/L (22-30) L 11/20/17 03:29 Anion Gap 20 mmol/L 11/20/17 03:29 BUN 59 mg/dL (9-20) H 11/20/17 03:29 Creatinine 2.7 mg/dL (0.8-1.5) H 11/20/17 03:29 Estimated GFR 29 ml/min 11/20/17 03:29 BUN/Creatinine Ratio 22 % 11/20/17 03:29 Glucose 113 mg/dL (75-100) H 11/20/17 03:29 POC Glucose 128 (70-105) H 11/20/17 13:38 Lactic Acid 1.80 mmol/L (0.7-2.0) 11/13/17 14:21 Calcium 7.8 mg/dL (8.4-10.2) L 11/20/17 03:29 Magnesium 2.70 mg/dL (1.7-2.3) H 11/19/17 04:44 Total Bilirubin 1.10 mg/dL (0.1-1.2) 11/11/17 23:20 AST 27 units/L (5-40) 11/11/17 23:20 ALT 40 units/L (7-56) 11/11/17 23:20 Alkaline Phosphatase 90 units/L (35-129) 11/11/17 23:20 Total Creatine Kinase 84 units/L (55-170) 11/12/17 20:03 CK-MB (CK-2) < 1.0 ng/mL (0.0-4.0) 11/12/17 20:03 CK-MB (CK-2) Rel Index 1.1 (0-4) 11/12/17 20:03 Troponin T 0.098 ng/mL (0.00-0.029) H 11/12/17 Unknown C-Reactive Protein 25.70 mg/dL (0.00-1.30) H 11/11/17 23:20 NT-Pro-B Natriuret Pep 792.4 pg/mL (0-900) 11/11/17 23:20 Total Protein 6.5 g/dL (6.3-8.2) 11/11/17 23:20 Albumin 2.5 g/dL (3.9-5) L 11/11/17 23:20 Albumin/Globulin Ratio 0.6 % 11/11/17 23:20 Triglycerides 86 mg/dL (2-149) 11/11/17 23:20 Cholesterol 82 mg/dL (50-199) 11/11/17 23:20 LDL Cholesterol Direct 42 mg/dL (50-130) L 11/11/17 23:20 HDL Cholesterol 24 mg/dL (40-59) L 11/11/17 23:20 Cholesterol/HDL Ratio 3.41 % 11/11/17 23:20 Lipase 30 units/L (13-60) 11/11/17 23:20 Urine Color Nicole (Yellow) 11/11/17 23:09 Urine Turbidity Cloudy (Clear) 11/11/17 23:09 Urine pH 5.0 (5.0-7.0) 11/11/17 23:09 Ur Specific [place] 1.025 (1.003-1.030) 11/11/17 23:09 Urine Protein 100 mg/dl mg/dL (Negative) 11/11/17 23:09 Urine Glucose (UA) 50 mg/dL (Negative) 11/11/17 23:09 Urine Ketones Neg mg/dL (Negative) 11/11/17 23:09 Urine Blood Neg (Negative) 11/11/17 23:09 Urine Nitrite Neg (Negative) 11/11/17 23:09 Urine Bilirubin Neg (Negative) 11/11/17 23:09 Urine Urobilinogen 4.0 mg/dL (<2.0) 11/11/17 23:09 Ur Leukocyte Esterase Neg (Negative) 11/11/17 23:09 Urine WBC (Auto) 5.0 /HPF (0.0-6.0) 11/11/17 23:09 Urine RBC (Auto) 4.0 /HPF (0.0-6.0) 11/11/17 23:09 Urine Bacteria (Auto) 3+ /HPF (Negative) 11/11/17 23:09 Amorphous Crystals 3+ 11/11/17 23:09 Hyaline Casts 76 /LPF 11/11/17 23:09 Urine Mucus 2+ /HPF 11/11/17 23:09
--- NOTE | 2017-11-20 17:09 | Progress Note ---
Subjective Principal diagnosis: coffee-ground emesis Interval history: Patient was seen today for follow-up on multiple renal related issues in the critical care setting, Around 11 AM vitals labs intake output medications were reviewed Interdisciplinary notes were also reviewed Past medical history: Reviewed Family history: Reviewed Allergies: Reviewed Current medication: Reviewed Physical examination: General no acute distress HEENT: Oral mucosa moist Neck: Supple no JVD Chest: Few bilateral basilar crackles posteriorly otherwise clear anteriorly Heart: Regular rate and rhythm S1-S2 heard no S3-S4 Abdomen: Soft nontender no organomegaly Extremities: Minimal edema no peripheral cyanosis dry skin Psychiatric: No agitation and aggression noted Assessment and plan: Acute kidney injury, secondary to dehydration patient likely does have some degree of acute tubular necrosis given the severity of renal dysfunction, needs ongoing monitoring of renal function Baseline creatinine is around 0.6 as of 821 creatinine peaked at 4.1 on 2017 Will order for kidney ultrasound Hypernatremia, continue with tube feeding free water as needed Hypokalemia needs to be monitored closely History of carotid endarterectomy, CVA Renal prognosis currently guarded, but then no indication for renal replacement therapy in his case As far as labs are concerned sodium is improving at 148 potassium 3.4 requires correction bicarbonate 18 will correct acidosis creatinine is currently 2.7 slightly improved in the last 2 days Renal prognosis remains guarded at this time We'll continue to follow and make recommendation from renal standpoint Objective - Vital Signs Vital signs: Vital Signs - 12hr 11/20/17 11/20/17 11/20/17 06:00 07:00 07:30 Temperature Pulse Rate 83 91 H 100 H Pulse Rate [ Right From Monitor] Respiratory 20 19 Rate Blood Pressure 116/63 127/71 146/75 O2 Sat by Pulse 100 99 100 Oximetry 11/20/17 11/20/17 11/20/17 08:00 09:41 09:46 Temperature 98.4 F 99.9 F H Pulse Rate 100 H 101 H Pulse Rate [ 94 H Right From Monitor] Respiratory 12 21 Rate Blood Pressure 113/64 116/85 O2 Sat by Pulse 100 100 Oximetry 11/20/17 11/20/17 11/20/17 09:51 09:56 10:00 Temperature Pulse Rate 99 H 101 H 82 Pulse Rate [ Right From Monitor] Respiratory 21 21 Rate Blood Pressure 124/68 120/69 O2 Sat by Pulse 100 100 Oximetry 11/20/17 11/20/17 11/20/17 10:11 10:26 10:35 Temperature 99.6 F Pulse Rate 99 H 94 H 100 H Pulse Rate [ Right From Monitor] Respiratory 22 18 Rate Blood Pressure 122/68 127/71 128/70 O2 Sat by Pulse 98 104 H Oximetry 11/20/17 11/20/17 11/20/17 11:00 12:00 13:00 Temperature 98.7 F Pulse Rate 96 H 94 H 96 H Pulse Rate [ 86 Right From Monitor] Respiratory 23 22 22 Rate Blood Pressure 128/70 117/68 119/70 O2 Sat by Pulse 99 100 Oximetry 11/20/17 11/20/17 11/20/17 14:00 15:00 15:03 Temperature Pulse Rate 100 H 94 H 93 H Pulse Rate [ Right From Monitor] Respiratory 23 23 Rate Blood Pressure 134/73 108/67 108/67 O2 Sat by Pulse 98 97 98 Oximetry 11/20/17 11/20/17 16:00 17:02 Temperature 97.7 F Pulse Rate 84 Pulse Rate [ Right From Monitor] Respiratory Rate Blood Pressure 113/70 O2 Sat by Pulse 100 Oximetry - Lab 11/20/17 00:38 11/20/17 03:29 Most recent lab results Calcium 7.8 mg/dL (8.4-10.2) L 11/20/17 03:29 Magnesium 2.70 mg/dL (1.7-2.3) H 11/19/17 04:44
[2017-11-20] MEDS: D5W 1,000 ML with KCL 20 MEQ IV SCH (17:19)
--- NOTE | 2017-11-20 23:49 | Ultrasound Report ---
FINAL REPORT PROCEDURE: US RENAL BILAT TECHNIQUE: Real-time sonography in multiple planes of the kidneys, ureters and urinary bladder was performed with image documentation. CPT 68556 HISTORY: herlinda COMPARISON: No prior studies are available for comparison. FINDINGS: RIGHT kidney: Normal echotexture. No focal renal mass, calculus, or hydronephrosis. Length: 11.5 x 5 x 6 cm. LEFT kidney: Normal echotexture. No focal renal mass, calculus, or hydronephrosis. Length: 12 x 6 x 6cm. There appears to be free fluid in the pelvis. Urinary bladder appears empty due to the presence of a [place]. Loculated fluid is noted in the perisplenic region. Mild degree fluid is noted in the perihepatic region. IMPRESSION: Kidneys are unremarkable. Mild degree ascites Perisplenic fluid appears loculated. CT of the abdomen is recommended..
[2017-11-21] MEDS: SODIUM CHLORIDE FLUSH SYRINGE 10 ML IV SCH ×3 (00:01→21:14)
[2017-11-21] MEDS: PROTONIX (nf) FEEDTUBE SCH ×2 (00:02→11:23)
[2017-11-21 00:18] LABS: Hemoglobin 8.4 gm/dl (11.8-15.2)
[2017-11-21] MEDS ORDERED: NS 0.9% IV ONE (00:24)
[2017-11-21] MEDS ORDERED: HEPARIN ONE (00:24)
[2017-11-21] MEDS: D5W 1,000 ML with KCL 20 MEQ IV SCH (01:04)
[2017-11-21] MEDS ORDERED: VANCOMYCIN/NS 1 GM/250 ML 1 GM/250 ML BAG IV SCH (04:06)
[2017-11-21] MEDS ORDERED: ZOSYN/NS 3.375GM/50ML 3.375 GM/50 ML BAG IV ONE (04:08)
[2017-11-21] MEDS: TYLENOL PR PRN ×2 (04:21→17:25)
--- NOTE | 2017-11-21 04:41 | XRay Report ---
FINAL REPORT EXAM: XR CHEST 1V AP HISTORY: Tachypenea TECHNIQUE: A portable view the chest was obtained and compared the study of 11/15/2017. FINDINGS: There now tracheostomy tube in good position. The nasogastric tube has been removed. The heart size is normal. The lungs are not congested. There is mild atelectatic changes left lung base. Pleural fluid is not seen. The skeletal structures do not show any acute changes. IMPRESSION: Status post tracheostomy. Mild atelectatic changes left lung base. No evidence of congestion.
[2017-11-21 05:12] LABS: Mean Corpuscular HGB Conc 29 % (32-34); Mean Corpuscular Volume 86 fl (84-94); Platelet Count 746 K/mm3 (140-440); Red Blood Count 3.82 M/mm3 (3.65-5.03); Red Cell Distribution Width 19.7 % (13.2-15.2)
[2017-11-21 05:20] LABS: Hematocrit 32.7 % (35.5-45.6); Hemoglobin 9.6 gm/dl (11.8-15.2); Mean Corpuscular Hemoglobin 25 pg (28-32)
[2017-11-21 05:25] LABS: Calcium 7.6 mg/dL (8.4-10.2)
[2017-11-21] MEDS: LEVOPHED DRIP 4 MG/NS 250 ML 4 MG/250 ML BAG IV SCH ×2 (06:06→15:13)
[2017-11-21] MEDS ORDERED: NACL 0.9% 500 ML 500 ML IV ONE (06:36)
--- NOTE | 2017-11-21 07:20 | XRay Report ---
FINAL REPORT EXAM: XR ABDOMEN 1V AP HISTORY: abdominal distention TECHNIQUE: Two portable supine views of the abdomen and pelvis were obtained. FINDINGS: There is a gastrostomy tube in the left side of the abdomen. The bowel gas pattern otherwise is unremarkable. There is no evidence of distention. Free air is not seen. The lung bases are clear. The bones and soft tissues otherwise reveal obesity. IMPRESSION: No evidence of distention or free air. No acute process identified.
[2017-11-21] MEDS ORDERED: NACL 0.9% 1000 ML 1,000 ML IV SCH ×3 (07:24→08:00)
--- NOTE | 2017-11-21 08:09 | Progress Note ---
Assessment and Plan - Patient Problems (1) Fever Current Visit: Yes Status: Acute (2) Hypotension Current Visit: Yes Status: Acute (3) Metabolic acidosis Current Visit: Yes Status: Acute (4) Acute renal failure (ARF) Current Visit: Yes Status: Acute (5) Acute respiratory failure with hypoxemia Current Visit: Yes Status: Acute (6) Pneumonia Current Visit: Yes Status: Acute Qualifiers: Pneumonia type: due to unspecified organism Laterality: right Lung location: middle lobe of lung Qualified Code(s): J18.1 - Lobar pneumonia, unspecified organism (7) Septic shock Current Visit: Yes Status: Acute (8) Ventilator dependence Current Visit: Yes Status: Acute Subjective Principal diagnosis: coffee-ground emesis Interval history: coffee ground material around trach site pt receive good volumes on vent. episode of hypotension now on pressors via peripheral vein recd dose of vanco and zosyn this am NGT and peg tube suctioned no signif coffee ground aspirated. Tube feed aspirated Objective Vital Signs - 12hr 11/20/17 11/20/17 11/20/17 20:15 21:00 22:00 Temperature Pulse Rate 96 H 106 H 101 H Respiratory 24 24 Rate Blood Pressure 115/78 111/69 126/73 O2 Sat by Pulse 100 100 97 Oximetry O2 Sat by Pulse Oximetry [ Assessment] 11/20/17 11/20/17 11/21/17 23:00 23:39 00:00 Temperature 98.8 F Pulse Rate 103 H 105 H Respiratory 24 24 Rate Blood Pressure 137/74 141/78 O2 Sat by Pulse 98 99 Oximetry O2 Sat by Pulse Oximetry [ Assessment] 11/21/17 11/21/17 11/21/17 00:03 00:08 00:30 Temperature Pulse Rate 102 H 108 H 110 H Respiratory 23 26 H Rate Blood Pressure 151/73 151/73 151/73 O2 Sat by Pulse 99 100 100 Oximetry O2 Sat by Pulse Oximetry [ Assessment] 11/21/17 11/21/17 11/21/17 01:00 01:08 01:30 Temperature Pulse Rate 104 H 108 H Respiratory 24 30 H Rate Blood Pressure 144/80 149/90 O2 Sat by Pulse 100 100 Oximetry O2 Sat by Pulse 100 Oximetry [ Assessment] 11/21/17 11/21/17 11/21/17 02:00 02:30 02:33 Temperature 98.7 F Pulse Rate 118 H 116 H Respiratory 27 H 29 H Rate Blood Pressure 138/84 137/86 O2 Sat by Pulse 99 100 Oximetry O2 Sat by Pulse Oximetry [ Assessment] 11/21/17 11/21/17 11/21/17 03:00 03:30 04:00 Temperature 102.3 F H Pulse Rate 106 H 121 H 136 H Respiratory 25 H 33 H 34 H Rate Blood Pressure 140/84 128/67 140/80 O2 Sat by Pulse 100 99 100 Oximetry O2 Sat by Pulse Oximetry [ Assessment] 11/21/17 11/21/17 11/21/17 04:30 04:56 05:00 Temperature Pulse Rate 145 H 143 H 140 H Respiratory 50 H 45 H Rate Blood Pressure 117/71 128/75 128/75 O2 Sat by Pulse 99 99 99 Oximetry O2 Sat by Pulse Oximetry [ Assessment] 11/21/17 11/21/17 05:30 05:34 Temperature 103.0 F H Pulse Rate 146 H Respiratory 51 H Rate Blood Pressure 128/75 O2 Sat by Pulse 99 Oximetry O2 Sat by Pulse Oximetry [ Assessment] Constitutional: lethargic, other (intubated sp trach 11/20) Eyes: non-icteric ENT: oropharynx moist, other (ETT at 24 cm) Neck: supple, no JVD Effort: mildly labored Ascultation: Bilateral: rhonchi (sporadic) Cardiovascular: regular rate and rhythm, other (tachycardic) Gastrointestinal: normoactive bowel sounds, non-distended Integumentary: normal Extremities: no cyanosis, no edema, other (RT femoral line in place) Neurologic: other (slowly follow verbal command) CBC and BMP: 11/21/17 04:30 11/21/17 04:30 ABG, PT/INR, D-dimer: ABG POC ABG pH 7.371 (7.35-7.45) 11/21/17 06:30 POC ABG pCO2 18.6 (35-45) L 11/21/17 06:30 POC ABG pO2 121 (80-105) H 11/21/17 06:30 POC ABG HCO3 10.8 11/21/17 06:30 POC ABG Total CO2 11 11/21/17 06:30 POC ABG O2 Sat 99 11/21/17 06:30 PT/INR, D-dimer PT 16.7 Sec. (12.2-14.9) H 11/18/17 04:34 INR 1.30 (0.87-1.13) H 11/18/17 04:34 Abnormal lab findings: Abnormal Labs 11/11/17 11/11/17 11/11/17 23:18 23:20 23:20 WBC RBC Hgb 10.4 L Hct 32.6 L D MCV MCH 27 L MCHC RDW 17.4 H Plt Count 105 L Lymph % (Auto) Moore % (Auto) Lymph # Moore # Seg Neutrophils % Seg Neuts % (Manual) Lymphocytes % (Manual) 8.0 L Monocytes % (Manual) Nucleated RBC % 1.0 H Seg Neutrophils # Seg Neutrophils # Man Lymphocytes # (Manual) 0.7 L Monocytes # (Manual) PT INR POC ABG pH 7.550 H POC ABG pCO2 31.6 L POC ABG pO2 Sodium 146 H Potassium Chloride Carbon Dioxide BUN 26 H Creatinine 1.7 H D Glucose 133 H POC Glucose Lactic Acid Calcium Magnesium Troponin T 0.117 H* C-Reactive Protein Albumin 2.5 L LDL Cholesterol Direct 42 L HDL Cholesterol 24 L 11/11/17 11/12/17 11/12/17 23:20 00:23 00:23 WBC RBC Hgb Hct MCV MCH MCHC RDW Plt Count Lymph % (Auto) Moore % (Auto) Lymph # Moore # Seg Neutrophils % Seg Neuts % (Manual) Lymphocytes % (Manual) Monocytes % (Manual) Nucleated RBC % Seg Neutrophils # Seg Neutrophils # Man Lymphocytes # (Manual) Monocytes # (Manual) PT 16.7 H INR 1.28 H POC ABG pH POC ABG pCO2 POC ABG pO2 Sodium Potassium Chloride Carbon Dioxide BUN Creatinine Glucose POC Glucose Lactic Acid 3.20 H* Calcium Magnesium Troponin T C-Reactive Protein 25.70 H Albumin LDL Cholesterol Direct HDL Cholesterol 11/12/17 11/12/17 11/12/17 00:46 01:27 01:27 WBC RBC Hgb Hct MCV MCH MCHC RDW Plt Count Lymph % (Auto) Moore % (Auto) Lymph # Moore # Seg Neutrophils % Seg Neuts % (Manual) Lymphocytes % (Manual) Monocytes % (Manual) Nucleated RBC % Seg Neutrophils # Seg Neutrophils # Man Lymphocytes # (Manual) Monocytes # (Manual) PT INR POC ABG pH 7.495 H POC ABG pCO2 32.0 L POC ABG pO2 64 L Sodium Potassium Chloride Carbon Dioxide BUN Creatinine Glucose POC Glucose Lactic Acid 3.70 H* Calcium Magnesium Troponin T 0.096 H C-Reactive Protein Albumin LDL Cholesterol Direct HDL Cholesterol 11/12/17 11/12/17 11/12/17 03:21 04:50 06:27 WBC RBC Hgb Hct MCV MCH MCHC RDW Plt Count Lymph % (Auto) Moore % (Auto) Lymph # Moore # Seg Neutrophils % Seg Neuts % (Manual) Lymphocytes % (Manual) Monocytes % (Manual) Nucleated RBC % Seg Neutrophils # Seg Neutrophils # Man Lymphocytes # (Manual) Monocytes # (Manual) PT INR POC ABG pH POC ABG pCO2 POC ABG pO2 109 H Sodium Potassium Chloride Carbon Dioxide BUN Creatinine Glucose POC Glucose Lactic Acid 3.80 H* 2.20 H* Calcium Magnesium Troponin T C-Reactive Protein Albumin LDL Cholesterol Direct HDL Cholesterol 11/12/17 11/12/17 11/12/17 09:24 09:24 09:24 WBC RBC Hgb 10.4 L Hct 33.4 L MCV MCH MCHC RDW Plt Count Lymph % (Auto) Moore % (Auto) Lymph # Moore # Seg Neutrophils % Seg Neuts % (Manual) Lymphocytes % (Manual) Monocytes % (Manual) Nucleated RBC % Seg Neutrophils # Seg Neutrophils # Man Lymphocytes # (Manual) Monocytes # (Manual) PT INR POC ABG pH POC ABG pCO2 POC ABG pO2 Sodium Potassium Chloride Carbon Dioxide BUN Creatinine Glucose POC Glucose Lactic Acid 2.90 H* Calcium Magnesium Troponin T 0.091 H C-Reactive Protein Albumin LDL Cholesterol Direct HDL Cholesterol 11/12/17 11/12/17 11/12/17 12:56 20:03 Unknown WBC RBC Hgb Hct MCV MCH MCHC RDW Plt Count Lymph % (Auto) Moore % (Auto) Lymph # Moore # Seg Neutrophils % Seg Neuts % (Manual) Lymphocytes % (Manual) Monocytes % (Manual) Nucleated RBC % Seg Neutrophils # Seg Neutrophils # Man Lymphocytes # (Manual) Monocytes # (Manual) PT INR POC ABG pH POC ABG pCO2 POC ABG pO2 Sodium Potassium Chloride Carbon Dioxide BUN Creatinine Glucose POC Glucose Lactic Acid 3.60 H* Calcium Magnesium Troponin T 0.102 H* 0.156 H* D C-Reactive Protein Albumin LDL Cholesterol Direct HDL Cholesterol 11/12/17 11/13/17 11/13/17 Unknown 04:50 04:50 WBC 12.2 H RBC 3.51 L Hgb 9.3 L Hct 30.1 L MCV MCH 26 L MCHC 31 L RDW 18.0 H Plt Count 128 L Lymph % (Auto) 8.6 L Moore % (Auto) 11.1 H Lymph # 1.1 L Moore # 1.4 H Seg Neutrophils % 80.1 H Seg Neuts % (Manual) Lymphocytes % (Manual) Monocytes % (Manual) Nucleated RBC % Seg Neutrophils # 9.8 H Seg Neutrophils # Man Lymphocytes # (Manual) Monocytes # (Manual) PT INR POC ABG pH POC ABG pCO2 POC ABG pO2 Sodium 149 H Potassium 5.1 H Chloride 114.4 H Carbon Dioxide 18 L BUN 52 H Creatinine 3.3 H D Glucose 129 H POC Glucose Lactic Acid Calcium 7.9 L Magnesium Troponin T 0.098 H C-Reactive Protein Albumin LDL Cholesterol Direct HDL Cholesterol 11/13/17 11/13/17 11/14/17 04:51 09:34 04:21 WBC RBC Hgb Hct MCV MCH MCHC RDW Plt Count Lymph % (Auto) Moore % (Auto) Lymph # Moore # Seg Neutrophils % Seg Neuts % (Manual) Lymphocytes % (Manual) Monocytes % (Manual) Nucleated RBC % Seg Neutrophils # Seg Neutrophils # Man Lymphocytes # (Manual) Monocytes # (Manual) PT INR POC ABG pH POC ABG pCO2 30.1 L 29.8 L POC ABG pO2 135 H Sodium Potassium Chloride Carbon Dioxide BUN Creatinine Glucose POC Glucose Lactic Acid 2.10 H* Calcium Magnesium Troponin T C-Reactive Protein Albumin LDL Cholesterol Direct HDL Cholesterol 11/15/17 11/15/17 11/16/17 04:52 15:50 05:17 WBC RBC Hgb Hct MCV MCH MCHC RDW Plt Count Lymph % (Auto) Moore % (Auto) Lymph # Moore # Seg Neutrophils % Seg Neuts % (Manual) Lymphocytes % (Manual) Monocytes % (Manual) Nucleated RBC % Seg Neutrophils # Seg Neutrophils # Man Lymphocytes # (Manual) Monocytes # (Manual) PT INR POC ABG pH POC ABG pCO2 29.5 L 31.5 L POC ABG pO2 115 H 122 H Sodium 154 H Potassium Chloride 117.9 H Carbon Dioxide 19 L BUN 87 H Creatinine 4.1 H Glucose POC Glucose Lactic Acid Calcium 8.1 L Magnesium Troponin T C-Reactive Protein Albumin LDL Cholesterol Direct HDL Cholesterol 11/16/17 11/17/1711/17/18 16:37 04:07 10:00 WBC 14.7 H RBC 3.23 L Hgb 8.3 L Hct 28.1 L MCV MCH 26 L MCHC 30 L RDW 18.8 H Plt Count Lymph % (Auto) Moore % (Auto) Lymph # Moore # Seg Neutrophils % Seg Neuts % (Manual) 75 H Lymphocytes % (Manual) 8.0 L Monocytes % (Manual) Nucleated RBC % 1.0 H Seg Neutrophils # Seg Neutrophils # Man 11.0 H Lymphocytes # (Manual) Monocytes # (Manual) 0.9 H PT INR POC ABG pH POC ABG pCO2 POC ABG pO2 Sodium 153 H 155 H Potassium Chloride 117.3 H 119.4 H Carbon Dioxide 19 L 20 L BUN 90 H 89 H Creatinine 3.9 H 3.6 H Glucose 111 H 115 H POC Glucose Lactic Acid Calcium 8.1 L 8.0 L Magnesium Troponin T C-Reactive Protein Albumin LDL Cholesterol Direct HDL Cholesterol 11/18/17 11/18/17 11/18/17 04:34 04:34 04:34 WBC 15.5 H RBC 3.13 L Hgb 8.1 L Hct 26.3 L MCV MCH 26 L MCHC 31 L RDW 18.6 H Plt Count Lymph % (Auto) Moore % (Auto) Lymph # Moore # Seg Neutrophils % Seg Neuts % (Manual) 81.0 H Lymphocytes % (Manual) 7.0 L Monocytes % (Manual) Nucleated RBC % 1.0 H Seg Neutrophils # Seg Neutrophils # Man 12.6 H Lymphocytes # (Manual) 1.1 L Monocytes # (Manual) PT 16.7 H INR 1.30 H POC ABG pH POC ABG pCO2 POC ABG pO2 Sodium 155 H Potassium 3.2 L Chloride 121.0 H Carbon Dioxide 20 L BUN 74 H Creatinine 2.9 H Glucose 126 H POC Glucose Lactic Acid Calcium 7.9 L Magnesium Troponin T C-Reactive Protein Albumin LDL Cholesterol Direct HDL Cholesterol 11/19/17 11/19/17 11/20/17 04:44 04:44 00:38 WBC 19.0 H 22.2 H RBC 3.20 L 3.17 L Hgb 8.4 L 7.9 L Hct 27.9 L 26.4 L MCV 83 L MCH 26 L 25 L MCHC 30 L 30 L RDW 19.1 H 18.9 H Plt Count Lymph % (Auto) Moore % (Auto) Lymph # Moore # Seg Neutrophils % Seg Neuts % (Manual) 83.0 H Lymphocytes % (Manual) 3.0 L Monocytes % (Manual) 9.0 H Nucleated RBC % Seg Neutrophils # Seg Neutrophils # Man 18.4 H Lymphocytes # (Manual) 0.7 L Monocytes # (Manual) 2.0 H PT INR POC ABG pH POC ABG pCO2 POC ABG pO2 Sodium 152 H Potassium Chloride 117.1 H Carbon Dioxide 17 L BUN 66 H Creatinine 2.8 H Glucose 119 H POC Glucose Lactic Acid Calcium 7.8 L Magnesium 2.70 H Troponin T C-Reactive Protein Albumin LDL Cholesterol Direct HDL Cholesterol 11/20/17 11/20/17 11/20/17 03:29 04:48 13:38 WBC RBC Hgb Hct MCV MCH MCHC RDW Plt Count Lymph % (Auto) Moore % (Auto) Lymph # Moore # Seg Neutrophils % Seg Neuts % (Manual) Lymphocytes % (Manual) Monocytes % (Manual) Nucleated RBC % Seg Neutrophils # Seg Neutrophils # Man Lymphocytes # (Manual) Monocytes # (Manual) PT INR POC ABG pH POC ABG pCO2 29.4 L POC ABG pO2 Sodium 148 H Potassium 3.4 L Chloride 113.7 H Carbon Dioxide 18 L BUN 59 H Creatinine 2.7 H Glucose 113 H POC Glucose 128 H Lactic Acid Calcium 7.8 L Magnesium Troponin T C-Reactive Protein Albumin LDL Cholesterol Direct HDL Cholesterol 11/20/17 11/20/17 11/21/17 17:38 23:40 04:30 WBC 21.0 H RBC Hgb 8.4 L 9.6 L Hct 28.0 L 32.7 L MCV MCH 25 L MCHC 29 L RDW 19.7 H Plt Count 746 H Lymph % (Auto) Moore % (Auto) Lymph # Moore # Seg Neutrophils % Seg Neuts % (Manual) Lymphocytes % (Manual) Monocytes % (Manual) Nucleated RBC % Seg Neutrophils # Seg Neutrophils # Man Lymphocytes # (Manual) Monocytes # (Manual) PT INR POC ABG pH POC ABG pCO2 POC ABG pO2 Sodium Potassium Chloride Carbon Dioxide BUN Creatinine Glucose POC Glucose 115 H Lactic Acid Calcium Magnesium Troponin T C-Reactive Protein Albumin LDL Cholesterol Direct HDL Cholesterol 11/21/17 11/21/17 11/21/17 04:30 04:58 06:30 WBC RBC Hgb Hct MCV MCH MCHC RDW Plt Count Lymph % (Auto) Moore % (Auto) Lymph # Moore # Seg Neutrophils % Seg Neuts % (Manual) Lymphocytes % (Manual) Monocytes % (Manual) Nucleated RBC % Seg Neutrophils # Seg Neutrophils # Man Lymphocytes # (Manual) Monocytes # (Manual) PT INR POC ABG pH POC ABG pCO2 18.6 L POC ABG pO2 121 H Sodium Potassium Chloride 109.4 H Carbon Dioxide 14 L BUN 59 H Creatinine 3.0 H Glucose 137 H POC Glucose 132 H Lactic Acid Calcium 7.6 L Magnesium Troponin T C-Reactive Protein Albumin LDL Cholesterol Direct HDL Cholesterol Chest x-ray: report reviewed, image reviewed
--- NOTE | 2017-11-21 10:36 | Progress Note ---
Subjective Principal diagnosis: coffee-ground emesis Interval history: Patient was seen today for follow-up on multiple renal related issues in the critical care setting, Around 11 AM vitals labs intake output medications were reviewed Pulmonary notes reviewed Renal ultrasound unremarkable Interdisciplinary notes were also reviewed Past medical history: Reviewed Family history: Reviewed Allergies: Reviewed Current medication: Reviewed Physical examination: General no acute distress HEENT: Oral mucosa moist Neck: Supple no JVD Chest: Few bilateral basilar crackles posteriorly otherwise clear anteriorly Heart: Regular rate and rhythm S1-S2 heard no S3-S4 Abdomen: Soft nontender no organomegaly Extremities: Minimal edema no peripheral cyanosis dry skin Psychiatric: No agitation and aggression noted Assessment and plan: Acute kidney injury: Renal function appears to be stable, most likely resulting from acute tubular necrosis due to severe volume depletion Baseline creatinine 0.6 as of 11/10/2017 creatinine peaked at 4.1 on 11/15/2017 No evidence of any luck Patrice disturbances that could indicate renal replacement therapy Hypernatremia continue with free water continue to monitor renal function, Kidney ultrasound obtained November 20 shows unremarkable kidneys Continue to monitor renal function patiently Hypokalemia: Better History of carotid endarterectomy, CVA Renal prognosis currently guarded, but then no indication for renal replacement therapy in his case As far as labs are concerned sodium is improving at 148 potassium 3.4 requires correction bicarbonate 18 will correct acidosis creatinine is currently 2.7 slightly improved in the last 2 days Renal prognosis remains guarded at this time We'll continue to follow and make recommendation from renal standpoint Objective - Vital Signs Vital signs: Vital Signs - 12hr 11/20/17 11/20/17 11/21/17 23:00 23:39 00:00 Temperature 98.8 F Pulse Rate 103 H 105 H Respiratory 24 24 Rate Blood Pressure 137/74 141/78 O2 Sat by Pulse 98 99 Oximetry O2 Sat by Pulse Oximetry [ Assessment] 11/21/17 11/21/17 11/21/17 00:03 00:08 00:30 Temperature Pulse Rate 102 H 108 H 110 H Respiratory 23 26 H Rate Blood Pressure 151/73 151/73 151/73 O2 Sat by Pulse 99 100 100 Oximetry O2 Sat by Pulse Oximetry [ Assessment] 11/21/17 11/21/17 11/21/17 01:00 01:08 01:30 Temperature Pulse Rate 104 H 108 H Respiratory 24 30 H Rate Blood Pressure 144/80 149/90 O2 Sat by Pulse 100 100 Oximetry O2 Sat by Pulse 100 Oximetry [ Assessment] 11/21/17 11/21/17 11/21/17 02:00 02:30 02:33 Temperature 98.7 F Pulse Rate 118 H 116 H Respiratory 27 H 29 H Rate Blood Pressure 138/84 137/86 O2 Sat by Pulse 99 100 Oximetry O2 Sat by Pulse Oximetry [ Assessment] 11/21/17 11/21/17 11/21/17 03:00 03:30 04:00 Temperature 102.3 F H Pulse Rate 106 H 121 H 136 H Respiratory 25 H 33 H 34 H Rate Blood Pressure 140/84 128/67 140/80 O2 Sat by Pulse 100 99 100 Oximetry O2 Sat by Pulse Oximetry [ Assessment] 11/21/17 11/21/17 11/21/17 04:30 04:56 05:00 Temperature Pulse Rate 145 H 143 H 140 H Respiratory 50 H 45 H Rate Blood Pressure 117/71 128/75 128/75 O2 Sat by Pulse 99 99 99 Oximetry O2 Sat by Pulse Oximetry [ Assessment] 11/21/17 11/21/17 11/21/17 05:30 05:34 06:00 Temperature 103.0 F H Pulse Rate 146 H 135 H Respiratory 51 H 51 H Rate Blood Pressure 128/75 72/53 O2 Sat by Pulse 99 100 Oximetry O2 Sat by Pulse Oximetry [ Assessment] 11/21/17 11/21/17 11/21/17 06:30 07:00 07:30 Temperature Pulse Rate 136 H 133 H 136 H Respiratory 38 H 45 H 45 H Rate Blood Pressure 83/57 84/45 132/38 O2 Sat by Pulse 100 100 100 Oximetry O2 Sat by Pulse Oximetry [ Assessment] 11/21/17 11/21/17 11/21/17 08:00 08:30 09:00 Temperature Pulse Rate 144 H 142 H 137 H Respiratory 45 H 37 H 47 H Rate Blood Pressure 121/66 115/56 89/69 O2 Sat by Pulse 100 74 L Oximetry O2 Sat by Pulse Oximetry [ Assessment] 11/21/17 09:30 Temperature Pulse Rate 139 H Respiratory 40 H Rate Blood Pressure 92/49 O2 Sat by Pulse 100 Oximetry O2 Sat by Pulse Oximetry [ Assessment] - Lab 11/21/17 13:43 11/21/17 04:30 Most recent lab results Calcium 7.6 mg/dL (8.4-10.2) L 11/21/17 04:30 Magnesium 2.70 mg/dL (1.7-2.3) H 11/19/17 04:44
[2017-11-21] MEDS ORDERED: VERSED IV NR (12:08)
[2017-11-21] MEDS ORDERED: MORPHINE IM NR (12:08)
[2017-11-21] MEDS ORDERED: D5/0.45NS 1,000 ML IV SCH (14:00)
[2017-11-21 14:14] LABS: Mean Corpuscular HGB Conc 28 % (32-34); Mean Corpuscular Volume 88 fl (84-94); Platelet Count 766 K/mm3 (140-440); Red Blood Count 3.67 M/mm3 (3.65-5.03)
--- NOTE | 2017-11-21 14:26 | Procedure Note ---
Pre-op diagnosis: central line for pressors and fluids Procedure: central line placement Anesthesia: local Surgeon: VERO ZAPATA Estimated blood loss: none Condition: critical Disposition: no change
[2017-11-21 14:27] LABS: Hematocrit 32.3 % (35.5-45.6); Mean Corpuscular Hemoglobin 25 pg (28-32)
[2017-11-21 14:46] LABS: Calcium 7.6 mg/dL (8.4-10.2)
[2017-11-21 15:03] LABS: Band Neutrophils # (Manual) 1.9 K/mm3; Basophils % (Manual) 0 % (0.0-1.8); Eosinophils % (Manual) 0 % (0.0-4.3); Giant Platelets Few; Hypochromasia Few; Myelocytes # (Manual) 0.4 K/mm3; Platelet Estimate Consistent w Auto; Total Cells Counted 100
--- NOTE | 2017-11-21 15:22 | Event Note ---
worsening status will start on bicarb drip. Give another 1 liter of ns bolus continue pressors spoke w daughter additional 15 mins
[2017-11-21] MEDS ORDERED: NACL 0.9% 1000 ML 1,000 ML IV ONE ×2 (16:00→18:37)
--- NOTE | 2017-11-21 16:01 | Progress Note ---
Assessment and Plan Assessment and plan: Mr. 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 He had a Carotid doppler done that revealed a right ICA 50-79% stenosis. CTA of the neck revealed 80% stenosis of the right ICA with probable 50% stenosis of the origin of the right common carotid artery. His symptoms were thought to be due to the Carotid artery stenosis which was disheartening since he was on Aspirin and plavix. He was scheduled for right CEA but needed Cardiac clearance. He underwent stress test on 10/05/17 and Weigh Boss stated he was stable for non-cardiac history, low to moderate perioperative risk. So, he underwent right carotid enarterectomy on 10/09/17. Following the surgery, he developed recurrent left sided weakness/hemiparesis was taken to OR again on for Open Thrombectomy of Right Internal Carotid Artery and Injection of TPA into the Distal Artery. CT head obtained on 10/12/17 showed massive right cerebral hemisphere acute CVA with midline shift. He was discharged on 11/10/17 to [facility] but returned to ED on 11/12/17 for sob. He was admitted for Aspiration post-obstructive pneumonia with suspected mucus plug and subsequently intubated on admission. * CTA chest IMPRESSION: There is no thoracic aortic aneurysm or dissection.. There is no pulmonary embolism.. There is complete atelectasis of the left lung causing volume loss and mediastinal shift to the left. This is due to blockage of the left bronchus by the endotracheal tube which is in the right mainstem bronchus. There is no pleural effusion or pneumothorax.. There is pneumoperitoneum and ascites.. Dr. Navarro was notified by telephone at 3:20 a.m. central. * 1v Abd XRAY IMPRESSION: Nasogastric tube ends in the stomach. A PEG tube is identified. Bowel gas pattern is nonobstructive. -Acute hypoxic respiratory failure due to Pneumonia on MV>96 hours s/p Tracheostomy 10/23/17: continue MV, daily weaning attempt -Leukocyotosis with Sepsis with transient septic shock, poa: shock resolved, continue abx, ID is following -Aspiration pneumonia, with mucus plugging/post obstructive pna poa: [employer] is following, following sunction protocols -Acute encephalopathy: treat supportively -Hypernatremia: treat with free water, monitor bmp closely -Hypokalemia: replace and monitor closely -ARF vasomotor nephropathy, poa: IV fluids, monitor bmp closely -Dysphagia with aspiration: s/p peg tube -Acute on chronic blood loss anemia w/Coffee-ground material from peg tube: GI is following, treat with ppi iv bid, EGD done 11/18/17 showed 8 mm cratered, 10 mm linear ulcer proximal lesser curvature with erythema but no other bleeding stigmata, gastritis and 4-5 cm hiatal hernia -Advance care planning: full code d/w Dr. Celis, condition is worsening, he is hypotensive, now on Levophed 5 mcg iv drip, febrile and working hard to breath. She spoke with daughter and will place a central line for vasopressor. Consensus is that pt aspirated during the night. CCT 32 History Interval history: Patient was seen and examined. Follow-up on current diagnosis of respiratory failure. Overnight eventful with fevers, hypotension. Intubated. Imaging, nursing note, chart, labs and old chart reviewed. Hospitalist Physical - Physical exam Narrative exam: GEN: ill appearing, not sedated, on MV, moderate to severe increase accessory muscle usage. HEENT: NCAT, pupils reactive, anicteric, NECK: supple, no adenopathy, no thyromegaly, no JVD, trach in place CVS/HEART: RRR, normal S1S2, pulses present bilaterally CHEST/LUNGS: Symmetrical chest expansion, good air entry bilaterally GI/Abdomen: soft, distended, pbs, +peg tube in place /Bladder: no suprapubic tenderness, no CVA or paraspinal tenderness EXT/Skin: generalized edema x 4 MSK: left hemiparesis Neuro: CN 2-12 unable to access, doesn't follow commands Psych: confused - Constitutional Vitals: Temp Pulse Resp BP Pulse Ox 103.0 F H 138 H 40 H 92/50 97 11/21/17 05:34 11/21/17 12:15 11/21/17 12:50 11/21/17 12:15 11/21/17 12:15 General appearance: Present: no acute distress Results - Labs CBC & Chem 7: 11/21/17 13:43 11/21/17 14:17 Labs: Laboratory Last Values WBC 38.2 K/mm3 (4.5-11.0) H 11/21/17 13:43 RBC 3.67 M/mm3 (3.65-5.03) 11/21/17 13:43 Hgb 9.0 gm/dl (11.8-15.2) L 11/21/17 13:43 Hct 32.3 % (35.5-45.6) L 11/21/17 13:43 MCV 88 fl (84-94) 11/21/17 13:43 MCH 25 pg (28-32) L 11/21/17 13:43 MCHC 28 % (32-34) L 11/21/17 13:43 RDW 20.0 % (13.2-15.2) H 11/21/17 13:43 Plt Count 766 K/mm3 (140-440) H 11/21/17 13:43 Lymph % (Auto) 8.6 % (13.4-35.0) L 11/13/17 04:50 Reeves % (Auto) 11.1 % (0.0-7.3) H 11/13/17 04:50 Eos % (Auto) 0.0 % (0.0-4.3) 11/13/17 04:50 Baso % (Auto) 0.2 % (0.0-1.8) 11/13/17 04:50 Lymph # 1.1 K/mm3 (1.2-5.4) L 11/13/17 04:50 Reeves # 1.4 K/mm3 (0.0-0.8) H 11/13/17 04:50 Eos # 0.0 K/mm3 (0.0-0.4) 11/13/17 04:50 Baso # 0.0 K/mm3 (0.0-0.1) 11/13/17 04:50 Add Manual Diff Complete 11/21/17 13:43 Total Counted 100 11/21/17 13:43 Seg Neutrophils % Field Agent 11/21/17 13:43 Seg Neuts % (Manual) 85.0 % (40.0-70.0) H 11/21/17 13:43 Band Neutrophils % 5.0 % 11/21/17 13:43 Lymphocytes % (Manual) 1.0 % (13.4-35.0) L 11/21/17 13:43 Reactive Lymphs % (Man) 0 % 11/21/17 13:43 Monocytes % (Manual) 6.0 % (0.0-7.3) 11/21/17 13:43 Eosinophils % (Manual) 0 % (0.0-4.3) 11/21/17 13:43 Basophils % (Manual) 0 % (0.0-1.8) 11/21/17 13:43 Metamyelocytes % 2.0 % 11/21/17 13:43 Myelocytes % 1.0 % 11/21/17 13:43 Promyelocytes % 0 % 11/21/17 13:43 Blast Cells % 0 % 11/21/17 13:43 Nucleated RBC % 2.0 % (0.0-0.9) H 11/21/17 13:43 Seg Neutrophils # 9.8 K/mm3 (1.8-7.7) H 11/13/17 04:50 Seg Neutrophils # Man 32.5 K/mm3 (1.8-7.7) H 11/21/17 13:43 Band Neutrophils # 1.9 K/mm3 11/21/17 13:43 Lymphocytes # (Manual) 0.4 K/mm3 (1.2-5.4) L 11/21/17 13:43 Abs React Lymphs (Man) 0.0 K/mm3 11/21/17 13:43 Monocytes # (Manual) 2.3 K/mm3 (0.0-0.8) H 11/21/17 13:43 Eosinophils # (Manual) 0.0 K/mm3 (0.0-0.4) 11/21/17 13:43 Basophils # (Manual) 0.0 K/mm3 (0.0-0.1) 11/21/17 13:43 Metamyelocytes # 0.8 K/mm3 11/21/17 13:43 Myelocytes # 0.4 K/mm3 11/21/17 13:43 Promyelocytes # 0.0 K/mm3 11/21/17 13:43 Blast Cells # 0.0 K/mm3 11/21/17 13:43 WBC Morphology Not Reportable 11/21/17 13:43 Hypersegmented Neuts Not Reportable 11/21/17 13:43 Hyposegmented Neuts Not Reportable 11/21/17 13:43 Hypogranular Neuts Not Reportable 11/21/17 13:43 Smudge Cells Not Reportable 11/21/17 13:43 Toxic Granulation Not Reportable 11/21/17 13:43 Toxic Vacuolation Not Reportable 11/21/17 13:43 Dohle Bodies Not Reportable 11/21/17 13:43 Pelger-Huet Anomaly Not Reportable 11/21/17 13:43 Evangelina Rods Not Reportable 11/21/17 13:43 Platelet Estimate Consistent w auto 11/21/17 13:43 Clumped Platelets Not Reportable 11/21/17 13:43 Plt Clumps, EDTA Not Reportable 11/21/17 13:43 Large Platelets Not Reportable 11/21/17 13:43 Giant Platelets Few 11/21/17 13:43 Platelet Satelliting Not Reportable 11/21/17 13:43 Plt Morphology Comment Not Reportable 11/21/17 13:43 RBC Morphology Not Reportable 11/21/17 13:43 Dimorphic RBCs Not Reportable 11/21/17 13:43 Polychromasia Few 11/21/17 13:43 Hypochromasia Few 11/21/17 13:43 Poikilocytosis Not Reportable 11/21/17 13:43 Anisocytosis Not Reportable 11/21/17 13:43 Microcytosis Not Reportable 11/21/17 13:43 Macrocytosis Not Reportable 11/21/17 13:43 Spherocytes Not Reportable 11/21/17 13:43 Pappenheimer Bodies Not Reportable 11/21/17 13:43 Sickle Cells Not Reportable 11/21/17 13:43 Target Cells Not Reportable 11/21/17 13:43 Tear Drop Cells Not Reportable 11/21/17 13:43 Ovalocytes Not Reportable 11/21/17 13:43 Stomatocytes Few 11/18/17 04:34 Helmet Cells Not Reportable 11/21/17 13:43 Dukes-Erick Bodies Not Reportable 11/21/17 13:43 [place] Rings Not Reportable 11/21/17 13:43 [place] Cells Not Reportable 11/21/17 13:43 Bite Cells Not Reportable 11/21/17 13:43 Crenated Cell Not Reportable 11/21/17 13:43 Elliptocytes Not Reportable 11/21/17 13:43 Acanthocytes (Spur) Not Reportable 11/21/17 13:43 Rouleaux Not Reportable 11/21/17 13:43 Hemoglobin C Crystals Not Reportable 11/21/17 13:43 Schistocytes Not Reportable 11/21/17 13:43 Malaria parasites Not Reportable 11/21/17 13:43 [place] Bodies Not Reportable 11/21/17 13:43 Hem Pathologist Commnt No 11/21/17 13:43 PT 16.7 Sec. (12.2-14.9) H 11/18/17 04:34 INR 1.30 (0.87-1.13) H 11/18/17 04:34 APTT 31.7 Sec. (24.2-36.6) 11/12/17 00:23 POC ABG pH 7.371 (7.35-7.45) 11/21/17 06:30 POC ABG pCO2 18.6 (35-45) L 11/21/17 06:30 POC ABG pO2 121 (80-105) H 11/21/17 06:30 POC ABG HCO3 10.8 11/21/17 06:30 POC ABG Total CO2 11 11/21/17 06:30 POC ABG O2 Sat 99 11/21/17 06:30 POC ABG Base Excess -14 11/21/17 06:30 FiO2 30 % 11/21/17 06:30 Sodium 146 mmol/L (137-145) H 11/21/17 14:17 Potassium 4.9 mmol/L (3.6-5.0) D 11/21/17 14:17 Chloride 110.9 mmol/L (98-107) H 11/21/17 14:17 Carbon Dioxide 11 mmol/L (22-30) L 11/21/17 14:17 Anion Gap 29 mmol/L 11/21/17 14:17 BUN 62 mg/dL (9-20) H 11/21/17 14:17 Creatinine 4.0 mg/dL (0.8-1.5) H 11/21/17 14:17 Estimated GFR 18 ml/min 11/21/17 14:17 BUN/Creatinine Ratio 16 % 11/21/17 14:17 Glucose 64 mg/dL (75-100) L 11/21/17 14:17 POC Glucose 70 (70-105) 11/21/17 15:20 Lactic Acid 7.70 mmol/L (0.7-2.0) H* 11/21/17 14:17 Calcium 7.6 mg/dL (8.4-10.2) L 11/21/17 14:17 Magnesium 2.70 mg/dL (1.7-2.3) H 11/19/17 04:44 Total Bilirubin 1.10 mg/dL (0.1-1.2) 11/11/17 23:20 AST 27 units/L (5-40) 11/11/17 23:20 ALT 40 units/L (7-56) 11/11/17 23:20 Alkaline Phosphatase 90 units/L (35-129) 11/11/17 23:20 Total Creatine Kinase 84 units/L (55-170) 11/12/17 20:03 CK-MB (CK-2) < 1.0 ng/mL (0.0-4.0) 11/12/17 20:03 CK-MB (CK-2) Rel Index 1.1 (0-4) 11/12/17 20:03 Troponin T 0.098 ng/mL (0.00-0.029) H 11/12/17 Unknown C-Reactive Protein 25.70 mg/dL (0.00-1.30) H 11/11/17 23:20 NT-Pro-B Natriuret Pep 792.4 pg/mL (0-900) 11/11/17 23:20 Total Protein 6.5 g/dL (6.3-8.2) 11/11/17 23:20 Albumin 2.5 g/dL (3.9-5) L 11/11/17 23:20 Albumin/Globulin Ratio 0.6 % 11/11/17 23:20 Triglycerides 86 mg/dL (2-149) 11/11/17 23:20 Cholesterol 82 mg/dL (50-199) 11/11/17 23:20 LDL Cholesterol Direct 42 mg/dL (50-130) L 11/11/17 23:20 HDL Cholesterol 24 mg/dL (40-59) L 11/11/17 23:20 Cholesterol/HDL Ratio 3.41 % 11/11/17 23:20 Lipase 30 units/L (13-60) 11/11/17 23:20 Urine Color Nicole (Yellow) 11/11/17 23:09 Urine Turbidity Cloudy (Clear) 11/11/17 23:09 Urine pH 5.0 (5.0-7.0) 11/11/17 23:09 Ur Specific [place] 1.025 (1.003-1.030) 11/11/17 23:09 Urine Protein 100 mg/dl mg/dL (Negative) 11/11/17 23:09 Urine Glucose (UA) 50 mg/dL (Negative) 11/11/17 23:09 Urine Ketones Neg mg/dL (Negative) 11/11/17 23:09 Urine Blood Neg (Negative) 11/11/17 23:09 Urine Nitrite Neg (Negative) 11/11/17 23:09 Urine Bilirubin Neg (Negative) 11/11/17 23:09 Urine Urobilinogen 4.0 mg/dL (<2.0) 11/11/17 23:09 Ur Leukocyte Esterase Neg (Negative) 11/11/17 23:09 Urine WBC (Auto) 5.0 /HPF (0.0-6.0) 11/11/17 23:09 Urine RBC (Auto) 4.0 /HPF (0.0-6.0) 11/11/17 23:09 Urine Bacteria (Auto) 3+ /HPF (Negative) 11/11/17 23:09 Amorphous Crystals 3+ 11/11/17 23:09 Hyaline Casts 76 /LPF 11/11/17 23:09 Urine Mucus 2+ /HPF 11/11/17 23:09
--- NOTE | 2017-11-21 16:12 | XRay Report ---
FINAL REPORT EXAM: XR CHEST 1V AP HISTORY: resp failure TECHNIQUE: Frontal portable examination of the chest PRIORS: 11/21/2017 FINDINGS: Stable tracheostomy. NG tube extends below the diaphragm, likely into the stomach, with distal tip not visualized. Right lung remains clear. Normal cardiac silhouette size without vascular congestion. No pneumothorax or right pleural effusion. No displaced fracture. Again noted is slight CP angle opacity which may be a small pleural effusion. Linear density in the left lung base may again reflect atelectasis. IMPRESSION: No significant interval change with suggestion of left lung base atelectasis and possibly small left pleural effusion
[2017-11-21] MEDS: SODIUM BICARBONATE 150 MEQ in D5W 1,000 ML IV SCH (17:20)
--- NOTE | 2017-11-21 17:24 | Progress Note ---
Assessment and Plan - Patient Problems (1) Ventilator dependence Current Visit: Yes Status: Acute Plan to address problem: ween as tolerated (2) Acute respiratory failure with hypoxemia Current Visit: Yes Status: Acute Plan to address problem: Titrate O2 to keep sat.+92% (3) Respiratory failure Current Visit: No Status: Acute Plan to address problem: tracheotomy stable (4) Tracheostomy status Current Visit: Yes Status: Acute Plan to address problem: local trache care Subjective Date of service: 11/21/17 Principal diagnosis: coffee-ground emesis Interval history: POD #1Pt. resting comfortably, sedated. Objective - Constitutional Vitals: Vital Signs - 12hr 11/21/17 11/21/17 11/21/17 05:30 05:34 06:00 Temperature 103.0 F H Pulse Rate 146 H 135 H Respiratory 51 H 51 H Rate Blood Pressure 128/75 72/53 O2 Sat by Pulse 99 100 Oximetry O2 Sat by Pulse Oximetry [ Assessment] 11/21/17 11/21/17 11/21/17 06:30 07:00 07:30 Temperature Pulse Rate 136 H 133 H 136 H Respiratory 38 H 45 H 45 H Rate Blood Pressure 83/57 84/45 132/38 O2 Sat by Pulse 100 100 100 Oximetry O2 Sat by Pulse Oximetry [ Assessment] 11/21/17 11/21/17 11/21/17 08:00 08:25 08:30 Temperature 95.7 F L Pulse Rate 144 H 131 H 142 H Respiratory 45 H 37 H Rate Blood Pressure 121/66 67/40 115/56 O2 Sat by Pulse 100 98 Oximetry O2 Sat by Pulse 98 Oximetry [ Assessment] 11/21/17 11/21/17 11/21/17 09:00 09:30 10:00 Temperature Pulse Rate 137 H 139 H 138 H Respiratory 47 H 40 H 48 H Rate Blood Pressure 89/69 92/49 92/56 O2 Sat by Pulse 74 L 100 99 Oximetry O2 Sat by Pulse Oximetry [ Assessment] 11/21/17 11/21/17 11/21/17 10:15 10:30 10:45 Temperature Pulse Rate 143 H 136 H 136 H Respiratory 52 H 50 H 51 H Rate Blood Pressure 102/60 102/60 93/59 O2 Sat by Pulse 98 99 99 Oximetry O2 Sat by Pulse Oximetry [ Assessment] 11/21/17 11/21/17 11/21/17 11:00 12:00 12:15 Temperature 98.8 F Pulse Rate 134 H 138 H Respiratory 48 H Rate Blood Pressure 93/59 92/50 O2 Sat by Pulse 99 97 Oximetry O2 Sat by Pulse Oximetry [ Assessment] 11/21/17 11/21/17 11/21/17 12:20 12:50 13:00 Temperature Pulse Rate 132 H Respiratory 48 H 40 H 45 H Rate Blood Pressure 60/45 O2 Sat by Pulse 99 Oximetry O2 Sat by Pulse Oximetry [ Assessment] 11/21/17 11/21/17 11/21/17 13:06 13:10 13:16 Temperature Pulse Rate 131 H 139 H 140 H Respiratory 46 H 45 H 48 H Rate Blood Pressure 88/62 81/59 104/27 O2 Sat by Pulse 98 100 97 Oximetry O2 Sat by Pulse Oximetry [ Assessment] 11/21/17 11/21/17 11/21/17 13:20 13:26 13:30 Temperature Pulse Rate 139 H 135 H 137 H Respiratory 46 H 46 H 47 H Rate Blood Pressure 126/62 126/62 157/107 O2 Sat by Pulse 97 97 98 Oximetry O2 Sat by Pulse Oximetry [ Assessment] 11/21/17 11/21/17 11/21/17 13:36 13:40 13:45 Temperature Pulse Rate 138 H 139 H 139 H Respiratory 46 H 44 H 45 H Rate Blood Pressure 87/66 73/30 77/42 O2 Sat by Pulse 97 100 97 Oximetry O2 Sat by Pulse Oximetry [ Assessment] 11/21/17 11/21/17 11/21/17 13:50 13:56 14:00 Temperature Pulse Rate 138 H 136 H 135 H Respiratory 45 H 43 H 45 H Rate Blood Pressure 104/27 104/27 104/27 O2 Sat by Pulse 97 97 98 Oximetry O2 Sat by Pulse Oximetry [ Assessment] 11/21/17 11/21/17 11/21/17 14:05 14:10 14:15 Temperature Pulse Rate 132 H 132 H 132 H Respiratory 44 H 44 H 46 H Rate Blood Pressure 67/40 67/40 67/40 O2 Sat by Pulse 98 98 98 Oximetry O2 Sat by Pulse Oximetry [ Assessment] 11/21/17 11/21/17 11/21/17 14:21 14:25 14:30 Temperature Pulse Rate 135 H 131 H 129 H Respiratory 44 H 42 H 43 H Rate Blood Pressure 80/45 80/45 74/44 O2 Sat by Pulse 98 97 97 Oximetry O2 Sat by Pulse Oximetry [ Assessment] 11/21/17 11/21/17 11/21/17 14:35 14:41 14:45 Temperature Pulse Rate 131 H 136 H 135 H Respiratory 44 H 41 H 42 H Rate Blood Pressure 74/44 74/44 92/50 O2 Sat by Pulse 97 98 98 Oximetry O2 Sat by Pulse Oximetry [ Assessment] 11/21/17 11/21/17 11/21/17 14:51 14:55 15:00 Temperature Pulse Rate 139 H 140 H 142 H Respiratory 43 H 47 H 43 H Rate Blood Pressure 80/45 80/45 84/48 O2 Sat by Pulse 98 97 98 Oximetry O2 Sat by Pulse Oximetry [ Assessment] 11/21/17 11/21/17 11/21/17 15:05 15:11 15:15 Temperature Pulse Rate 142 H 143 H 140 H Respiratory 42 H 44 H 45 H Rate Blood Pressure 84/48 84/48 83/40 O2 Sat by Pulse 98 98 98 Oximetry O2 Sat by Pulse Oximetry [ Assessment] 11/21/17 11/21/17 11/21/17 15:21 15:25 15:30 Temperature Pulse Rate 137 H 135 H 139 H Respiratory 41 H 43 H 41 H Rate Blood Pressure 74/44 74/44 73/47 O2 Sat by Pulse 98 98 97 Oximetry O2 Sat by Pulse Oximetry [ Assessment] 11/21/17 11/21/17 11/21/17 15:35 15:41 15:45 Temperature Pulse Rate 142 H 144 H 142 H Respiratory 43 H 43 H 42 H Rate Blood Pressure 73/47 73/47 73/47 O2 Sat by Pulse 98 98 97 Oximetry O2 Sat by Pulse Oximetry [ Assessment] 11/21/17 11/21/17 11/21/17 15:51 15:55 16:00 Temperature 102.1 F H Pulse Rate 145 H 146 H 148 H Respiratory 43 H 43 H Rate Blood Pressure 58/30 58/30 78/53 O2 Sat by Pulse 98 98 98 Oximetry O2 Sat by Pulse 98 Oximetry [ Assessment] 11/21/17 11/21/17 11/21/17 16:01 16:05 16:11 Temperature Pulse Rate 150 H 150 H 149 H Respiratory 40 H 42 H 41 H Rate Blood Pressure 83/29 83/29 83/29 O2 Sat by Pulse 98 98 98 Oximetry O2 Sat by Pulse Oximetry [ Assessment] 11/21/17 11/21/17 11/21/17 16:15 16:21 16:25 Temperature Pulse Rate 145 H 148 H 149 H Respiratory 41 H 42 H 46 H Rate Blood Pressure 81/57 81/57 81/57 O2 Sat by Pulse 97 98 98 Oximetry O2 Sat by Pulse Oximetry [ Assessment] 11/21/17 11/21/17 11/21/17 16:30 16:35 16:41 Temperature Pulse Rate 148 H 151 H 146 H Respiratory 46 H 45 H 45 H Rate Blood Pressure 78/53 78/53 78/53 O2 Sat by Pulse 98 98 98 Oximetry O2 Sat by Pulse Oximetry [ Assessment] 11/21/17 11/21/17 11/21/17 16:45 16:51 16:55 Temperature Pulse Rate 147 H 146 H 147 H Respiratory 45 H 41 H 41 H Rate Blood Pressure 77/49 77/49 77/49 O2 Sat by Pulse 98 98 98 Oximetry O2 Sat by Pulse Oximetry [ Assessment] 11/21/17 11/21/17 17:00 17:05 Temperature Pulse Rate 145 H 148 H Respiratory 41 H 46 H Rate Blood Pressure 82/48 82/48 O2 Sat by Pulse 98 98 Oximetry O2 Sat by Pulse Oximetry [ Assessment] General appearance: Present: no acute distress - EENT Eyes: PERRL ENT: poor dentition Ears: negative: other (pinna w/o break down) - Neck Neck: supple, other (STOMA CLEAN & DRY, SUTURES INTACT) - Cardiovascular Rhythm: regular Extremities: no ischemia, normal color - Gastrointestinal General gastrointestinal: Present: soft, non-tender, other (tube feedings held ) Rectal Exam: deferred - Genitourinary Male genitourinary: deferred - Integumentary Integumentary: clear, warm, dry - Musculoskeletal Musculoskeletal: other (sedated) - Neurologic Neurologic: other (sedated) - Psychiatric Psychiatric: other (sedated) - Labs CBC & Chem 7: 11/21/17 13:43 11/21/17 14:17 Labs: Abnormal lab results 11/20/17 11/20/17 11/21/17 Range/Units 17:38 23:40 00:13 WBC (4.5-11.0) K/mm3 Hgb 8.4 L (11.8-15.2) gm/dl Hct 28.0 L (35.5-45.6) % MCH (28-32) pg MCHC (32-34) % RDW (13.2-15.2) % Plt Count (140-440) K/mm3 Seg Neuts % (Manual) (40.0-70.0) % Lymphocytes % (Manual) (13.4-35.0) % Nucleated RBC % (0.0-0.9) % Seg Neutrophils # Man (1.8-7.7) K/mm3 Lymphocytes # (Manual) (1.2-5.4) K/mm3 Monocytes # (Manual) (0.0-0.8) K/mm3 POC ABG pCO2 (35-45) POC ABG pO2 (80-105) Sodium (137-145) mmol/L Chloride (98-107) mmol/L Carbon Dioxide (22-30) mmol/L BUN (9-20) mg/dL Creatinine (0.8-1.5) mg/dL Glucose (75-100) mg/dL POC Glucose 115 H 145 H (70-105) Lactic Acid (0.7-2.0) mmol/L Calcium (8.4-10.2) mg/dL 11/21/17 11/21/17 11/21/17 Range/Units 04:30 04:30 04:58 WBC 21.0 H (4.5-11.0) K/mm3 Hgb 9.6 L (11.8-15.2) gm/dl Hct 32.7 L (35.5-45.6) % MCH 25 L (28-32) pg MCHC 29 L (32-34) % RDW 19.7 H (13.2-15.2) % Plt Count 746 H (140-440) K/mm3 Seg Neuts % (Manual) (40.0-70.0) % Lymphocytes % (Manual) (13.4-35.0) % Nucleated RBC % (0.0-0.9) % Seg Neutrophils # Man (1.8-7.7) K/mm3 Lymphocytes # (Manual) (1.2-5.4) K/mm3 Monocytes # (Manual) (0.0-0.8) K/mm3 POC ABG pCO2 (35-45) POC ABG pO2 (80-105) Sodium (137-145) mmol/L Chloride 109.4 H (98-107) mmol/L Carbon Dioxide 14 L (22-30) mmol/L BUN 59 H (9-20) mg/dL Creatinine 3.0 H (0.8-1.5) mg/dL Glucose 137 H (75-100) mg/dL POC Glucose 132 H (70-105) Lactic Acid (0.7-2.0) mmol/L Calcium 7.6 L (8.4-10.2) mg/dL 11/21/17 11/21/17 11/21/17 Range/Units 06:30 13:43 14:17 WBC 38.2 H (4.5-11.0) K/mm3 Hgb 9.0 L (11.8-15.2) gm/dl Hct 32.3 L (35.5-45.6) % MCH 25 L (28-32) pg MCHC 28 L (32-34) % RDW 20.0 H (13.2-15.2) % Plt Count 766 H (140-440) K/mm3 Seg Neuts % (Manual) 85.0 H (40.0-70.0) % Lymphocytes % (Manual) 1.0 L (13.4-35.0) % Nucleated RBC % 2.0 H (0.0-0.9) % Seg Neutrophils # Man 32.5 H (1.8-7.7) K/mm3 Lymphocytes # (Manual) 0.4 L (1.2-5.4) K/mm3 Monocytes # (Manual) 2.3 H (0.0-0.8) K/mm3 POC ABG pCO2 18.6 L (35-45) POC ABG pO2 121 H (80-105) Sodium 146 H (137-145) mmol/L Chloride 110.9 H (98-107) mmol/L Carbon Dioxide 11 L (22-30) mmol/L BUN 62 H (9-20) mg/dL Creatinine 4.0 H (0.8-1.5) mg/dL Glucose 64 L (75-100) mg/dL POC Glucose (70-105) Lactic Acid (0.7-2.0) mmol/L Calcium 7.6 L (8.4-10.2) mg/dL 11/21/17 Range/Units 14:17 WBC (4.5-11.0) K/mm3 Hgb (11.8-15.2) gm/dl Hct (35.5-45.6) % MCH (28-32) pg MCHC (32-34) % RDW (13.2-15.2) % Plt Count (140-440) K/mm3 Seg Neuts % (Manual) (40.0-70.0) % Lymphocytes % (Manual) (13.4-35.0) % Nucleated RBC % (0.0-0.9) % Seg Neutrophils # Man (1.8-7.7) K/mm3 Lymphocytes # (Manual) (1.2-5.4) K/mm3 Monocytes # (Manual) (0.0-0.8) K/mm3 POC ABG pCO2 (35-45) POC ABG pO2 (80-105) Sodium (137-145) mmol/L Chloride (98-107) mmol/L Carbon Dioxide (22-30) mmol/L BUN (9-20) mg/dL Creatinine (0.8-1.5) mg/dL Glucose (75-100) mg/dL POC Glucose (70-105) Lactic Acid 7.70 H* (0.7-2.0) mmol/L Calcium (8.4-10.2) mg/dL - Imaging and cardiology Chest x-ray: report reviewed (trache in place, no pneumothorax)
[2017-11-21] MEDS ORDERED: SODIUM BICARBONATE IV ONE ×2 (18:36→19:00)
[2017-11-21] MEDS ORDERED: NEO-SYNEPHRINE 100 MG in NACL 0.9% 90 ML IV SCH (18:45)
[2017-11-21] MEDS: LEVOPHED 8 MG in NACL 0.9% 250ML 242 ML IV SCH ×2 (18:51→22:58)
--- NOTE | 2017-11-21 19:07 | Operative Report ---
Informed consent obtained from the patient's daughter. Procedure was performed. Area was sterilized. Drape was placed. Then, right femoral central line was placed. Good inflow of fluid into all port, outflow of blood from the white port was poor. No bleeding noted at the site. The patient tolerated the procedure. JOB# [id number] MAREN/RENETTA
[2017-11-21] MEDS: SOLU-Medrol IV SCH (20:57)
[2017-11-21] MEDS ORDERED: ZOSYN/NS 2.25 GM/50ML 2.25 GM/50 ML BAG IV SCH (22:00)
[2017-11-22] MEDS: SOLU-Medrol IV SCH ×4 (00:36→22:55)
[2017-11-22] MEDS: PROTONIX (nf) FEEDTUBE SCH ×3 (02:38→22:56)
[2017-11-22] MEDS: LEVOPHED 8 MG in NACL 0.9% 250ML 242 ML IV SCH (05:50)
[2017-11-22] MEDS: SODIUM BICARBONATE 150 MEQ in D5W 1,000 ML IV SCH ×2 (07:33→22:54)
[2017-11-22 07:45] LABS: Hematocrit 26.7 % (35.5-45.6); Mean Corpuscular HGB Conc 30 % (32-34); Mean Corpuscular Volume 83 fl (84-94); Platelet Count 602 K/mm3 (140-440); Red Blood Count 3.22 M/mm3 (3.65-5.03); Red Cell Distribution Width 19.4 % (13.2-15.2)
[2017-11-22 07:54] LABS: Mean Corpuscular Hemoglobin 25 pg (28-32)
[2017-11-22 07:56] LABS: Calcium 7.1 mg/dL (8.4-10.2)
[2017-11-22] MEDS: TYLENOL PR PRN (09:07)
[2017-11-22] MEDS: ZOSYN/NS 2.25 GM/50ML 2.25 GM/50 ML BAG IV SCH ×3 (09:24→22:55)
--- NOTE | 2017-11-22 09:54 | Progress Note ---
Subjective Principal diagnosis: coffee-ground emesis Interval history: Patient was seen today for follow-up on multiple renal related issues in the critical care patient is doing poorly Interdisciplinary notes were also reviewed Past medical history: Reviewed Family history: Reviewed Allergies: Reviewed Current medication: Reviewed Physical examination: General no acute distress, unresponsive HEENT: Oral mucosa moist Neck: Supple no JVD Chest: Few bilateral basilar crackles posteriorly otherwise clear anteriorly Heart: Regular rate and rhythm S1-S2 heard no S3-S4 Abdomen: Soft nontender no organomegaly Extremities:worsening edema no peripheral cyanosis dry skin Psychiatric: No agitation and aggression noted Assessment and plan: Acute kidney injury patient is currently anuric, had a long discussion with patient's daughter at this time over the phone Jannette, she wants us to proceed with hemodialysis using a central venous catheter. I have explained her about the process of dialysis including patient's hemodynamic instability. I also made her aware that occasionally patients in his situation can become unstable and remotely can on dialysis as well. She does understand the patient is doing poorly and as it is if we don't do something he may from the consequences of his health issues. She is willing to take this risk and is giving me the permission to proceed with hemodialysis which we will do with extreme caution if tolerated well. I also told her that hemodialysis alone is not going to change patient's eventual outcome but she wants to proceed with hemodialysis treatment at this time,she is giving me a verbal consent and will need to be re-consented by the nurse Hypotension: Currently doing relatively better in terms of blood pressure, currently on Levothroid 10 g off other vasopressors Patient is currently an earache likely resulting from severe hypotension requiring vasopressors Acidosis: No better today multi-organ problems Also discussed with patient's nurse as well as Dr. Celis in general his prognosis appears to be extremely poor, mortality risk is very high I explained all this to his daughter Jannette at length Baseline creatinine 0.6 as of 11/10/2017 creatinine peaked at 4.1 on 11/15/2017 Kidney ultrasound obtained November 20 shows unremarkable kidneys Continue to monitor renal function patiently Hypokalemia: Better History of carotid endarterectomy, CVA We'll continue to follow and make recommendation from renal standpoint Objective - Vital Signs Vital signs: Vital Signs - 12hr 11/21/17 11/21/17 11/21/17 22:00 22:01 22:15 Temperature Pulse Rate 150 H 148 H 151 H Pulse Rate [ Right From Monitor] Respiratory 40 H 39 H Rate Blood Pressure 121/48 113/65 O2 Sat by Pulse 99 99 Oximetry O2 Sat by Pulse Oximetry [ Assessment] 11/21/17 11/21/17 11/21/17 22:30 22:45 23:01 Temperature Pulse Rate 148 H 148 H 150 H Pulse Rate [ Right From Monitor] Respiratory 37 H 40 H 40 H Rate Blood Pressure 113/65 123/70 111/66 O2 Sat by Pulse 99 99 99 Oximetry O2 Sat by Pulse Oximetry [ Assessment] 11/21/17 11/21/17 11/21/17 23:15 23:28 23:30 Temperature Pulse Rate 149 H 144 H 141 H Pulse Rate [ Right From Monitor] Respiratory 39 H 34 H Rate Blood Pressure 103/54 100/6 114/57 O2 Sat by Pulse 99 99 99 Oximetry O2 Sat by Pulse 99 Oximetry [ Assessment] 11/21/17 11/21/17 11/22/17 23:45 23:56 00:00 Temperature 99.4 F Pulse Rate 144 H 146 H Pulse Rate [ 150 H Right From Monitor] Respiratory 36 H 33 H 38 H Rate Blood Pressure 100/62 95/60 O2 Sat by Pulse 99 99 99 Oximetry O2 Sat by Pulse Oximetry [ Assessment] 11/22/17 11/22/17 11/22/17 00:01 00:03 00:15 Temperature Pulse Rate 151 H 155 H 151 H Pulse Rate [ Right From Monitor] Respiratory 35 H 39 H 36 H Rate Blood Pressure 108/58 108/58 92/52 O2 Sat by Pulse 99 98 100 Oximetry O2 Sat by Pulse Oximetry [ Assessment] 11/22/17 11/22/17 11/22/17 00:16 00:30 00:45 Temperature Pulse Rate 155 H 153 H 152 H Pulse Rate [ Right From Monitor] Respiratory 40 H 40 H 38 H Rate Blood Pressure 92/52 93/57 104/63 O2 Sat by Pulse 99 99 100 Oximetry O2 Sat by Pulse Oximetry [ Assessment] 11/22/17 11/22/17 11/22/17 01:00 01:16 01:30 Temperature Pulse Rate 155 H 159 H 145 H Pulse Rate [ Right From Monitor] Respiratory 39 H 38 H 33 H Rate Blood Pressure 108/62 107/55 110/68 O2 Sat by Pulse 100 100 100 Oximetry O2 Sat by Pulse Oximetry [ Assessment] 11/22/17 11/22/17 11/22/17 01:45 02:00 02:15 Temperature Pulse Rate 139 H 137 H 145 H Pulse Rate [ Right From Monitor] Respiratory 33 H 37 H 35 H Rate Blood Pressure 104/67 109/73 106/73 O2 Sat by Pulse 99 100 99 Oximetry O2 Sat by Pulse Oximetry [ Assessment] 11/22/17 11/22/17 11/22/17 02:30 02:45 03:00 Temperature Pulse Rate 138 H 136 H 146 H Pulse Rate [ Right From Monitor] Respiratory 32 H 32 H 26 H Rate Blood Pressure 110/67 107/67 117/78 O2 Sat by Pulse 99 99 99 Oximetry O2 Sat by Pulse Oximetry [ Assessment] 11/22/17 11/22/17 11/22/17 03:15 03:30 03:41 Temperature Pulse Rate 136 H 137 H 136 H Pulse Rate [ Right From Monitor] Respiratory 33 H 31 H Rate Blood Pressure 109/69 121/62 108/62 O2 Sat by Pulse 99 99 99 Oximetry O2 Sat by Pulse Oximetry [ Assessment] 11/22/17 11/22/17 11/22/17 03:45 04:00 04:15 Temperature 99.2 F Pulse Rate 135 H 139 H 132 H Pulse Rate [ 150 H Right From Monitor] Respiratory 32 H 38 H 34 H Rate Blood Pressure 101/65 112/77 114/64 O2 Sat by Pulse 99 99 99 Oximetry O2 Sat by Pulse Oximetry [ Assessment] 11/22/17 11/22/17 11/22/17 04:30 04:45 05:00 Temperature Pulse Rate 130 H 130 H 136 H Pulse Rate [ Right From Monitor] Respiratory 29 H 31 H 32 H Rate Blood Pressure 109/68 96/57 105/65 O2 Sat by Pulse 100 99 99 Oximetry O2 Sat by Pulse Oximetry [ Assessment] 11/22/17 11/22/17 11/22/17 05:15 05:30 05:45 Temperature Pulse Rate 136 H 135 H 135 H Pulse Rate [ Right From Monitor] Respiratory 32 H 31 H 32 H Rate Blood Pressure 109/65 104/68 111/68 O2 Sat by Pulse 99 99 99 Oximetry O2 Sat by Pulse Oximetry [ Assessment] 11/22/17 11/22/17 11/22/17 06:00 06:15 06:30 Temperature Pulse Rate 119 H 133 H 132 H Pulse Rate [ Right From Monitor] Respiratory 30 H 30 H 31 H Rate Blood Pressure 92/58 111/61 101/62 O2 Sat by Pulse 99 99 99 Oximetry O2 Sat by Pulse Oximetry [ Assessment] 11/22/17 11/22/17 11/22/17 06:45 07:00 07:15 Temperature Pulse Rate 139 H 128 H 131 H Pulse Rate [ Right From Monitor] Respiratory 33 H 31 H 30 H Rate Blood Pressure 124/77 112/59 117/56 O2 Sat by Pulse 99 100 99 Oximetry O2 Sat by Pulse Oximetry [ Assessment] 11/22/17 11/22/17 11/22/17 07:30 07:42 08:00 Temperature 102.1 F H Pulse Rate 128 H 137 H Pulse Rate [ 134 H Right From Monitor] Respiratory 29 H 30 H Rate Blood Pressure 102/64 104/64 O2 Sat by Pulse 99 100 99 Oximetry O2 Sat by Pulse Oximetry [ Assessment] 11/22/17 09:07 Temperature Pulse Rate Pulse Rate [ Right From Monitor] Respiratory 29 H Rate Blood Pressure O2 Sat by Pulse Oximetry O2 Sat by Pulse Oximetry [ Assessment] - Lab 11/22/17 07:25 11/22/17 07:25 Most recent lab results Calcium 7.1 mg/dL (8.4-10.2) L 11/22/17 07:25 Magnesium 2.70 mg/dL (1.7-2.3) H 11/19/17 04:44
[2017-11-22] MEDS: SODIUM CHLORIDE FLUSH SYRINGE 10 ML IV SCH ×2 (10:30→22:56)
--- NOTE | 2017-11-22 10:37 | Progress Note ---
Assessment and Plan - Patient Problems (1) Fever Current Visit: Yes Status: Acute (2) Hypotension Current Visit: Yes Status: Acute (3) Metabolic acidosis Current Visit: Yes Status: Acute (4) Acute renal failure (ARF) Current Visit: Yes Status: Acute (5) Acute respiratory failure with hypoxemia Current Visit: Yes Status: Acute (6) Pneumonia Current Visit: Yes Status: Acute Qualifiers: Pneumonia type: due to unspecified organism Laterality: right Lung location: middle lobe of lung Qualified Code(s): J18.1 - Lobar pneumonia, unspecified organism (7) Septic shock Current Visit: Yes Status: Acute (8) Ventilator dependence Current Visit: Yes Status: Acute (9) Anemia Current Visit: Yes Status: Acute (10) Shock circulatory Current Visit: Yes Status: Acute (11) Lactic acid acidosis Current Visit: Yes Status: Acute Subjective Principal diagnosis: coffee-ground emesis Interval history: on vent off neodrip, Levophed drip being tapered started on Bicarbonate drip and steroids yesterday still tachycardiac [place] minimal output Objective Vital Signs - 12hr 11/21/17 11/21/17 11/21/17 22:45 23:01 23:15 Temperature Pulse Rate 148 H 150 H 149 H Pulse Rate [ Right From Monitor] Respiratory 40 H 40 H 39 H Rate Blood Pressure 123/70 111/66 103/54 O2 Sat by Pulse 99 99 99 Oximetry O2 Sat by Pulse Oximetry [ Assessment] 11/21/17 11/21/17 11/21/17 23:28 23:30 23:45 Temperature Pulse Rate 144 H 141 H 144 H Pulse Rate [ Right From Monitor] Respiratory 34 H 36 H Rate Blood Pressure 100/6 114/57 100/62 O2 Sat by Pulse 99 99 99 Oximetry O2 Sat by Pulse 99 Oximetry [ Assessment] 11/21/17 11/22/17 11/22/17 23:56 00:00 00:01 Temperature 99.4 F Pulse Rate 146 H 151 H Pulse Rate [ 150 H Right From Monitor] Respiratory 33 H 38 H 35 H Rate Blood Pressure 95/60 108/58 O2 Sat by Pulse 99 99 99 Oximetry O2 Sat by Pulse Oximetry [ Assessment] 11/22/17 11/22/17 11/22/17 00:03 00:15 00:16 Temperature Pulse Rate 155 H 151 H 155 H Pulse Rate [ Right From Monitor] Respiratory 39 H 36 H 40 H Rate Blood Pressure 108/58 92/52 92/52 O2 Sat by Pulse 98 100 99 Oximetry O2 Sat by Pulse Oximetry [ Assessment] 11/22/17 11/22/17 11/22/17 00:30 00:45 01:00 Temperature Pulse Rate 153 H 152 H 155 H Pulse Rate [ Right From Monitor] Respiratory 40 H 38 H 39 H Rate Blood Pressure 93/57 104/63 108/62 O2 Sat by Pulse 99 100 100 Oximetry O2 Sat by Pulse Oximetry [ Assessment] 11/22/17 11/22/17 11/22/17 01:16 01:30 01:45 Temperature Pulse Rate 159 H 145 H 139 H Pulse Rate [ Right From Monitor] Respiratory 38 H 33 H 33 H Rate Blood Pressure 107/55 110/68 104/67 O2 Sat by Pulse 100 100 99 Oximetry O2 Sat by Pulse Oximetry [ Assessment] 11/22/17 11/22/17 11/22/17 02:00 02:15 02:30 Temperature Pulse Rate 137 H 145 H 138 H Pulse Rate [ Right From Monitor] Respiratory 37 H 35 H 32 H Rate Blood Pressure 109/73 106/73 110/67 O2 Sat by Pulse 100 99 99 Oximetry O2 Sat by Pulse Oximetry [ Assessment] 11/22/17 11/22/17 11/22/17 02:45 03:00 03:15 Temperature Pulse Rate 136 H 146 H 136 H Pulse Rate [ Right From Monitor] Respiratory 32 H 26 H 33 H Rate Blood Pressure 107/67 117/78 109/69 O2 Sat by Pulse 99 99 99 Oximetry O2 Sat by Pulse Oximetry [ Assessment] 11/22/17 11/22/17 11/22/17 03:30 03:41 03:45 Temperature Pulse Rate 137 H 136 H 135 H Pulse Rate [ Right From Monitor] Respiratory 31 H 32 H Rate Blood Pressure 121/62 108/62 101/65 O2 Sat by Pulse 99 99 99 Oximetry O2 Sat by Pulse Oximetry [ Assessment] 11/22/17 11/22/17 11/22/17 04:00 04:15 04:30 Temperature 99.2 F Pulse Rate 139 H 132 H 130 H Pulse Rate [ 150 H Right From Monitor] Respiratory 38 H 34 H 29 H Rate Blood Pressure 112/77 114/64 109/68 O2 Sat by Pulse 99 99 100 Oximetry O2 Sat by Pulse Oximetry [ Assessment] 11/22/17 11/22/17 11/22/17 04:45 05:00 05:15 Temperature Pulse Rate 130 H 136 H 136 H Pulse Rate [ Right From Monitor] Respiratory 31 H 32 H 32 H Rate Blood Pressure 96/57 105/65 109/65 O2 Sat by Pulse 99 99 99 Oximetry O2 Sat by Pulse Oximetry [ Assessment] 11/22/17 11/22/17 11/22/17 05:30 05:45 06:00 Temperature Pulse Rate 135 H 135 H 119 H Pulse Rate [ Right From Monitor] Respiratory 31 H 32 H 30 H Rate Blood Pressure 104/68 111/68 92/58 O2 Sat by Pulse 99 99 99 Oximetry O2 Sat by Pulse Oximetry [ Assessment] 11/22/17 11/22/17 11/22/17 06:15 06:30 06:45 Temperature Pulse Rate 133 H 132 H 139 H Pulse Rate [ Right From Monitor] Respiratory 30 H 31 H 33 H Rate Blood Pressure 111/61 101/62 124/77 O2 Sat by Pulse 99 99 99 Oximetry O2 Sat by Pulse Oximetry [ Assessment] 11/22/17 11/22/17 11/22/17 07:00 07:15 07:30 Temperature Pulse Rate 128 H 131 H 128 H Pulse Rate [ Right From Monitor] Respiratory 31 H 30 H 29 H Rate Blood Pressure 112/59 117/56 102/64 O2 Sat by Pulse 100 99 99 Oximetry O2 Sat by Pulse Oximetry [ Assessment] 11/22/17 11/22/17 11/22/17 07:42 08:00 09:07 Temperature 102.1 F H Pulse Rate 137 H Pulse Rate [ 134 H Right From Monitor] Respiratory 30 H 29 H Rate Blood Pressure 104/64 O2 Sat by Pulse 100 99 Oximetry O2 Sat by Pulse Oximetry [ Assessment] Constitutional: lethargic, other (intubated sp trach 11/20 dark coffe groud secretion around trach) Eyes: non-icteric ENT: oropharynx moist, other (ETT at 24 cm) Neck: supple, no JVD Effort: mildly labored Ascultation: Bilateral: rhonchi (sporadic) Cardiovascular: regular rate and rhythm, other (tachycardic) Gastrointestinal: normoactive bowel sounds, non-distended Integumentary: normal Extremities: no cyanosis, no edema, other (RT femoral line in place) Neurologic: other (slowly follow verbal command) CBC and BMP: 11/22/17 07:25 11/22/17 07:25 ABG, PT/INR, D-dimer: ABG POC ABG pH 7.417 (7.35-7.45) 11/22/17 03:53 POC ABG pCO2 22.2 (35-45) L 11/22/17 03:53 POC ABG pO2 94 (80-105) 11/22/17 03:53 POC ABG HCO3 14.3 11/22/17 03:53 POC ABG Total CO2 15 11/22/17 03:53 POC ABG O2 Sat 98 11/22/17 03:53 PT/INR, D-dimer PT 16.7 Sec. (12.2-14.9) H 11/18/17 04:34 INR 1.30 (0.87-1.13) H 11/18/17 04:34 Abnormal lab findings: Abnormal Labs 11/11/17 11/11/17 11/11/17 23:18 23:20 23:20 WBC RBC Hgb 10.4 L Hct 32.6 L D MCV MCH 27 L MCHC RDW 17.4 H Plt Count 105 L Lymph % (Auto) [place] % (Auto) Lymph # [place] # Seg Neutrophils % Seg Neuts % (Manual) Lymphocytes % (Manual) 8.0 L Monocytes % (Manual) Nucleated RBC % 1.0 H Seg Neutrophils # Seg Neutrophils # Man Lymphocytes # (Manual) 0.7 L Monocytes # (Manual) PT INR POC ABG pH 7.550 H POC ABG pCO2 31.6 L POC ABG pO2 Sodium 146 H Potassium Chloride Carbon Dioxide BUN 26 H Creatinine 1.7 H D Glucose 133 H POC Glucose Lactic Acid Calcium Magnesium Troponin T 0.117 H* C-Reactive Protein Albumin 2.5 L LDL Cholesterol Direct 42 L HDL Cholesterol 24 L 11/11/17 11/12/17 11/12/17 23:20 00:23 00:23 WBC RBC Hgb Hct MCV MCH MCHC RDW Plt Count Lymph % (Auto) [place] % (Auto) Lymph # [place] # Seg Neutrophils % Seg Neuts % (Manual) Lymphocytes % (Manual) Monocytes % (Manual) Nucleated RBC % Seg Neutrophils # Seg Neutrophils # Man Lymphocytes # (Manual) Monocytes # (Manual) PT 16.7 H INR 1.28 H POC ABG pH POC ABG pCO2 POC ABG pO2 Sodium Potassium Chloride Carbon Dioxide BUN Creatinine Glucose POC Glucose Lactic Acid 3.20 H* Calcium Magnesium Troponin T C-Reactive Protein 25.70 H Albumin LDL Cholesterol Direct HDL Cholesterol 11/12/17 11/12/17 11/12/17 00:46 01:27 01:27 WBC RBC Hgb Hct MCV MCH MCHC RDW Plt Count Lymph % (Auto) [place] % (Auto) Lymph # [place] # Seg Neutrophils % Seg Neuts % (Manual) Lymphocytes % (Manual) Monocytes % (Manual) Nucleated RBC % Seg Neutrophils # Seg Neutrophils # Man Lymphocytes # (Manual) Monocytes # (Manual) PT INR POC ABG pH 7.495 H POC ABG pCO2 32.0 L POC ABG pO2 64 L Sodium Potassium Chloride Carbon Dioxide BUN Creatinine Glucose POC Glucose Lactic Acid 3.70 H* Calcium Magnesium Troponin T 0.096 H C-Reactive Protein Albumin LDL Cholesterol Direct HDL Cholesterol 11/12/17 11/12/17 11/12/17 03:21 04:50 06:27 WBC RBC Hgb Hct MCV MCH MCHC RDW Plt Count Lymph % (Auto) [place] % (Auto) Lymph # [place] # Seg Neutrophils % Seg Neuts % (Manual) Lymphocytes % (Manual) Monocytes % (Manual) Nucleated RBC % Seg Neutrophils # Seg Neutrophils # Man Lymphocytes # (Manual) Monocytes # (Manual) PT INR POC ABG pH POC ABG pCO2 POC ABG pO2 109 H Sodium Potassium Chloride Carbon Dioxide BUN Creatinine Glucose POC Glucose Lactic Acid 3.80 H* 2.20 H* Calcium Magnesium Troponin T C-Reactive Protein Albumin LDL Cholesterol Direct HDL Cholesterol 11/12/17 11/12/17 11/12/17 09:24 09:24 09:24 WBC RBC Hgb 10.4 L Hct 33.4 L MCV MCH MCHC RDW Plt Count Lymph % (Auto) [place] % (Auto) Lymph # [place] # Seg Neutrophils % Seg Neuts % (Manual) Lymphocytes % (Manual) Monocytes % (Manual) Nucleated RBC % Seg Neutrophils # Seg Neutrophils # Man Lymphocytes # (Manual) Monocytes # (Manual) PT INR POC ABG pH POC ABG pCO2 POC ABG pO2 Sodium Potassium Chloride Carbon Dioxide BUN Creatinine Glucose POC Glucose Lactic Acid 2.90 H* Calcium Magnesium Troponin T 0.091 H C-Reactive Protein Albumin LDL Cholesterol Direct HDL Cholesterol 11/12/17 11/12/17 11/12/17 12:56 20:03 Unknown WBC RBC Hgb Hct MCV MCH MCHC RDW Plt Count Lymph % (Auto) [place] % (Auto) Lymph # [place] # Seg Neutrophils % Seg Neuts % (Manual) Lymphocytes % (Manual) Monocytes % (Manual) Nucleated RBC % Seg Neutrophils # Seg Neutrophils # Man Lymphocytes # (Manual) Monocytes # (Manual) PT INR POC ABG pH POC ABG pCO2 POC ABG pO2 Sodium Potassium Chloride Carbon Dioxide BUN Creatinine Glucose POC Glucose Lactic Acid 3.60 H* Calcium Magnesium Troponin T 0.102 H* 0.156 H* D C-Reactive Protein Albumin LDL Cholesterol Direct HDL Cholesterol 11/12/17 11/13/17 11/13/17 Unknown 04:50 04:50 WBC 12.2 H RBC 3.51 L Hgb 9.3 L Hct 30.1 L MCV MCH 26 L MCHC 31 L RDW 18.0 H Plt Count 128 L Lymph % (Auto) 8.6 L [place] % (Auto) 11.1 H Lymph # 1.1 L [place] # 1.4 H Seg Neutrophils % 80.1 H Seg Neuts % (Manual) Lymphocytes % (Manual) Monocytes % (Manual) Nucleated RBC % Seg Neutrophils # 9.8 H Seg Neutrophils # Man Lymphocytes # (Manual) Monocytes # (Manual) PT INR POC ABG pH POC ABG pCO2 POC ABG pO2 Sodium 149 H Potassium 5.1 H Chloride 114.4 H Carbon Dioxide 18 L BUN 52 H Creatinine 3.3 H D Glucose 129 H POC Glucose Lactic Acid Calcium 7.9 L Magnesium Troponin T 0.098 H C-Reactive Protein Albumin LDL Cholesterol Direct HDL Cholesterol 11/13/17 11/13/17 11/14/17 04:51 09:34 04:21 WBC RBC Hgb Hct MCV MCH MCHC RDW Plt Count Lymph % (Auto) [place] % (Auto) Lymph # [place] # Seg Neutrophils % Seg Neuts % (Manual) Lymphocytes % (Manual) Monocytes % (Manual) Nucleated RBC % Seg Neutrophils # Seg Neutrophils # Man Lymphocytes # (Manual) Monocytes # (Manual) PT INR POC ABG pH POC ABG pCO2 30.1 L 29.8 L POC ABG pO2 135 H Sodium Potassium Chloride Carbon Dioxide BUN Creatinine Glucose POC Glucose Lactic Acid 2.10 H* Calcium Magnesium Troponin T C-Reactive Protein Albumin LDL Cholesterol Direct HDL Cholesterol 11/15/17 11/15/17 11/16/17 04:52 15:50 05:17 WBC RBC Hgb Hct MCV MCH MCHC RDW Plt Count Lymph % (Auto) [place] % (Auto) Lymph # [place] # Seg Neutrophils % Seg Neuts % (Manual) Lymphocytes % (Manual) Monocytes % (Manual) Nucleated RBC % Seg Neutrophils # Seg Neutrophils # Man Lymphocytes # (Manual) Monocytes # (Manual) PT INR POC ABG pH POC ABG pCO2 29.5 L 31.5 L POC ABG pO2 115 H 122 H Sodium 154 H Potassium Chloride 117.9 H Carbon Dioxide 19 L BUN 87 H Creatinine 4.1 H Glucose POC Glucose Lactic Acid Calcium 8.1 L Magnesium Troponin T C-Reactive Protein Albumin LDL Cholesterol Direct HDL Cholesterol 11/16/17 11/17/17 11/17/17 16:37 04:07 10:00 WBC 14.7 H RBC 3.23 L Hgb 8.3 L Hct 28.1 L MCV MCH 26 L MCHC 30 L RDW 18.8 H Plt Count Lymph % (Auto) [place] % (Auto) Lymph # [place] # Seg Neutrophils % Seg Neuts % (Manual) 75 H Lymphocytes % (Manual) 8.0 L Monocytes % (Manual) Nucleated RBC % 1.0 H Seg Neutrophils # Seg Neutrophils # Man 11.0 H Lymphocytes # (Manual) Monocytes # (Manual) 0.9 H PT INR POC ABG pH POC ABG pCO2 POC ABG pO2 Sodium 153 H 155 H Potassium Chloride 117.3 H 119.4 H Carbon Dioxide 19 L 20 L BUN 90 H 89 H Creatinine 3.9 H 3.6 H Glucose 111 H 115 H POC Glucose Lactic Acid Calcium 8.1 L 8.0 L Magnesium Troponin T C-Reactive Protein Albumin LDL Cholesterol Direct HDL Cholesterol 11/18/17 11/18/17 11/18/17 04:34 04:34 04:34 WBC 15.5 H RBC 3.13 L Hgb 8.1 L Hct 26.3 L MCV MCH 26 L MCHC 31 L RDW 18.6 H Plt Count Lymph % (Auto) [place] % (Auto) Lymph # [place] # Seg Neutrophils % Seg Neuts % (Manual) 81.0 H Lymphocytes % (Manual) 7.0 L Monocytes % (Manual) Nucleated RBC % 1.0 H Seg Neutrophils # Seg Neutrophils # Man 12.6 H Lymphocytes # (Manual) 1.1 L Monocytes # (Manual) PT 16.7 H INR 1.30 H POC ABG pH POC ABG pCO2 POC ABG pO2 Sodium 155 H Potassium 3.2 L Chloride 121.0 H Carbon Dioxide 20 L BUN 74 H Creatinine 2.9 H Glucose 126 H POC Glucose Lactic Acid Calcium 7.9 L Magnesium Troponin T C-Reactive Protein Albumin LDL Cholesterol Direct HDL Cholesterol 11/19/17 11/19/17 11/20/17 04:44 04:44 00:38 WBC 19.0 H 22.2 H RBC 3.20 L 3.17 L Hgb 8.4 L 7.9 L Hct 27.9 L 26.4 L MCV 83 L MCH 26 L 25 L MCHC 30 L 30 L RDW 19.1 H 18.9 H Plt Count Lymph % (Auto) [place] % (Auto) Lymph # [place] # Seg Neutrophils % Seg Neuts % (Manual) 83.0 H Lymphocytes % (Manual) 3.0 L Monocytes % (Manual) 9.0 H Nucleated RBC % Seg Neutrophils # Seg Neutrophils # Man 18.4 H Lymphocytes # (Manual) 0.7 L Monocytes # (Manual) 2.0 H PT INR POC ABG pH POC ABG pCO2 POC ABG pO2 Sodium 152 H Potassium Chloride 117.1 H Carbon Dioxide 17 L BUN 66 H Creatinine 2.8 H Glucose 119 H POC Glucose Lactic Acid Calcium 7.8 L Magnesium 2.70 H Troponin T C-Reactive Protein Albumin LDL Cholesterol Direct HDL Cholesterol 11/20/17 11/20/17 11/20/17 03:29 04:48 13:38 WBC RBC Hgb Hct MCV MCH MCHC RDW Plt Count Lymph % (Auto) [place] % (Auto) Lymph # [place] # Seg Neutrophils % Seg Neuts % (Manual) Lymphocytes % (Manual) Monocytes % (Manual) Nucleated RBC % Seg Neutrophils # Seg Neutrophils # Man Lymphocytes # (Manual) Monocytes # (Manual) PT INR POC ABG pH POC ABG pCO2 29.4 L POC ABG pO2 Sodium 148 H Potassium 3.4 L Chloride 113.7 H Carbon Dioxide 18 L BUN 59 H Creatinine 2.7 H Glucose 113 H POC Glucose 128 H Lactic Acid Calcium 7.8 L Magnesium Troponin T C-Reactive Protein Albumin LDL Cholesterol Direct HDL Cholesterol 11/20/17 11/20/17 11/21/17 17:38 23:40 00:13 WBC RBC Hgb 8.4 L Hct 28.0 L MCV MCH MCHC RDW Plt Count Lymph % (Auto) [place] % (Auto) Lymph # [place] # Seg Neutrophils % Seg Neuts % (Manual) Lymphocytes % (Manual) Monocytes % (Manual) Nucleated RBC % Seg Neutrophils # Seg Neutrophils # Man Lymphocytes # (Manual) Monocytes # (Manual) PT INR POC ABG pH POC ABG pCO2 POC ABG pO2 Sodium Potassium Chloride Carbon Dioxide BUN Creatinine Glucose POC Glucose 115 H 145 H Lactic Acid Calcium Magnesium Troponin T C-Reactive Protein Albumin LDL Cholesterol Direct HDL Cholesterol 11/21/17 11/21/17 11/21/17 04:30 04:30 04:58 WBC 21.0 H RBC Hgb 9.6 L Hct 32.7 L MCV MCH 25 L MCHC 29 L RDW 19.7 H Plt Count 746 H Lymph % (Auto) [place] % (Auto) Lymph # [place] # Seg Neutrophils % Seg Neuts % (Manual) Lymphocytes % (Manual) Monocytes % (Manual) Nucleated RBC % Seg Neutrophils # Seg Neutrophils # Man Lymphocytes # (Manual) Monocytes # (Manual) PT INR POC ABG pH POC ABG pCO2 POC ABG pO2 Sodium Potassium Chloride 109.4 H Carbon Dioxide 14 L BUN 59 H Creatinine 3.0 H Glucose 137 H POC Glucose 132 H Lactic Acid Calcium 7.6 L Magnesium Troponin T C-Reactive Protein Albumin LDL Cholesterol Direct HDL Cholesterol 11/21/17 11/21/17 11/21/17 06:30 13:43 14:17 WBC 38.2 H RBC Hgb 9.0 L Hct 32.3 L MCV MCH 25 L MCHC 28 L RDW 20.0 H Plt Count 766 H Lymph % (Auto) [place] % (Auto) Lymph # [place] # Seg Neutrophils % Seg Neuts % (Manual) 85.0 H Lymphocytes % (Manual) 1.0 L Monocytes % (Manual) Nucleated RBC % 2.0 H Seg Neutrophils # Seg Neutrophils # Man 32.5 H Lymphocytes # (Manual) 0.4 L Monocytes # (Manual) 2.3 H PT INR POC ABG pH POC ABG pCO2 18.6 L POC ABG pO2 121 H Sodium 146 H Potassium Chloride 110.9 H Carbon Dioxide 11 L BUN 62 H Creatinine 4.0 H Glucose 64 L POC Glucose Lactic Acid Calcium 7.6 L Magnesium Troponin T C-Reactive Protein Albumin LDL Cholesterol Direct HDL Cholesterol 11/21/17 11/21/17 11/22/17 14:17 19:09 00:05 WBC RBC Hgb Hct MCV MCH MCHC RDW Plt Count Lymph % (Auto) [place] % (Auto) Lymph # [place] # Seg Neutrophils % Seg Neuts % (Manual) Lymphocytes % (Manual) Monocytes % (Manual) Nucleated RBC % Seg Neutrophils # Seg Neutrophils # Man Lymphocytes # (Manual) Monocytes # (Manual) PT INR POC ABG pH POC ABG pCO2 20.0 L POC ABG pO2 Sodium Potassium Chloride Carbon Dioxide BUN Creatinine Glucose POC Glucose 127 H Lactic Acid 7.70 H* Calcium Magnesium Troponin T C-Reactive Protein Albumin LDL Cholesterol Direct HDL Cholesterol 11/22/17 11/22/17 11/22/17 03:53 06:00 07:25 WBC RBC Hgb Hct MCV MCH MCHC RDW Plt Count Lymph % (Auto) [place] % (Auto) Lymph # [place] # Seg Neutrophils % Seg Neuts % (Manual) Lymphocytes % (Manual) Monocytes % (Manual) Nucleated RBC % Seg Neutrophils # Seg Neutrophils # Man Lymphocytes # (Manual) Monocytes # (Manual) PT INR POC ABG pH POC ABG pCO2 22.2 L POC ABG pO2 Sodium 147 H Potassium Chloride 111.9 H Carbon Dioxide 16 L BUN 72 H Creatinine 5.1 H Glucose 181 H POC Glucose 180 H Lactic Acid Calcium 7.1 L Magnesium Troponin T C-Reactive Protein Albumin LDL Cholesterol Direct HDL Cholesterol 11/22/17 11/22/17 07:25 07:25 WBC 31.4 H RBC 3.22 L Hgb 8.0 L Hct 26.7 L MCV 83 L MCH 25 L MCHC 30 L RDW 19.4 H Plt Count 602 H Lymph % (Auto) [place] % (Auto) Lymph # [place] # Seg Neutrophils % Seg Neuts % (Manual) Lymphocytes % (Manual) Monocytes % (Manual) Nucleated RBC % Seg Neutrophils # Seg Neutrophils # Man Lymphocytes # (Manual) Monocytes # (Manual) PT INR POC ABG pH POC ABG pCO2 POC ABG pO2 Sodium Potassium Chloride Carbon Dioxide BUN Creatinine Glucose POC Glucose Lactic Acid 5.00 H* Calcium Magnesium Troponin T C-Reactive Protein Albumin LDL Cholesterol Direct HDL Cholesterol Chest x-ray: report reviewed (11/21 afternoon no change)
--- NOTE | 2017-11-22 11:09 | Progress Note ---
Assessment and Plan Assessment and plan: Mr. 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 He had a Carotid doppler done that revealed a right ICA 50-79% stenosis. CTA of the neck revealed 80% stenosis of the right ICA with probable 50% stenosis of the origin of the right common carotid artery. His symptoms were thought to be due to the Carotid artery stenosis which was disheartening since he was on Aspirin and plavix. He was scheduled for right CEA but needed Cardiac clearance. He underwent stress test on 10/05/17 and Greenhouse Instructor stated he was stable for non-cardiac history, low to moderate perioperative risk. So, he underwent right carotid enarterectomy on 10/09/17. Following the surgery, he developed recurrent left sided weakness/hemiparesis was taken to OR again on for Open Thrombectomy of Right Internal Carotid Artery and Injection of TPA into the Distal Artery. CT head obtained on 10/12/17 showed massive right cerebral hemisphere acute CVA with midline shift. He was discharged on 11/10/17 to [facility] but returned to ED on 11/12/17 for sob. He was admitted for Aspiration post-obstructive pneumonia with suspected mucus plug and subsequently intubated on admission. * CTA chest IMPRESSION: There is no thoracic aortic aneurysm or dissection.. There is no pulmonary embolism.. There is complete atelectasis of the left lung causing volume loss and mediastinal shift to the left. This is due to blockage of the left bronchus by the endotracheal tube which is in the right mainstem bronchus. There is no pleural effusion or pneumothorax.. There is pneumoperitoneum and ascites.. Dr. Navarro was notified by telephone at 3:20 a.m. central. * 1v Abd XRAY IMPRESSION: Nasogastric tube ends in the stomach. A PEG tube is identified. Bowel gas pattern is nonobstructive. -Acute hypoxic respiratory failure due to Pneumonia on MV>96 hours s/p Tracheostomy 10/23/17: continue MV, daily weaning attempt -Leukocyotosis with Sepsis with transient septic shock, poa: shock resolved, continue abx, ID is following -Aspiration pneumonia, with mucus plugging/post obstructive pna poa: Electrical Design Technician is following, following sunction protocols -Acute encephalopathy: treat supportively -Hypernatremia: treat with free water, monitor bmp closely -Hypokalemia: replace and monitor closely -ARF vasomotor nephropathy, poa: IV fluids, monitor bmp closely -Dysphagia with aspiration: s/p peg tube -Acute on chronic blood loss anemia w/Coffee-ground material from peg tube: GI is following, treat with ppi iv bid, EGD done 11/18/17 showed 8 mm cratered, 10 mm linear ulcer proximal lesser curvature with erythema but no other bleeding stigmata, gastritis and 4-5 cm hiatal hernia -Advance care planning: full code 11/21/17 patient went into shock, most likely Aspiration pneumonitis, he was on maximum dose of Levophed and Neosynephrine iv drip. This morning the Neosynephrine weaned off and Levophed down to 10 mcg. d/w Dr. Celis at bedside and Dr. Snyder, ?HD needed, he will call daughter CCT 31 minutes History Interval history: Patient was seen and examined. Follow-up on current diagnosis of respiratory failure. Overnight eventful, he was on maximum dose of Levophed and Neosynephrine iv drip. This morning the Neosynephrine weaned off and Levophed down to 10 mcg. Intubated. Imaging, nursing note, chart, labs and old chart reviewed. Hospitalist Physical - Physical exam Narrative exam: GEN: ill appearing, not sedated, on MV, moderate to severe increase accessory muscle usage. HEENT: NCAT, pupils reactive, anicteric, NECK: supple, no adenopathy, no thyromegaly, no JVD, trach in place CVS/HEART: RRR, normal S1S2, pulses present bilaterally CHEST/LUNGS: Symmetrical chest expansion, good air entry bilaterally GI/Abdomen: soft, distended, pbs, +peg tube in place /Bladder: no suprapubic tenderness, no CVA or paraspinal tenderness EXT/Skin: generalized edema x 4 MSK: left hemiparesis Neuro: CN 2-12 unable to access, doesn't follow commands Psych: confused - Constitutional Vitals: Temp Pulse Resp BP Pulse Ox 102.1 F H 134 H 29 H 104/64 99 11/22/17 08:00 11/22/17 08:00 11/22/17 09:07 11/22/17 07:42 11/22/17 08:00 General appearance: Present: no acute distress Results - Labs CBC & Chem 7: 11/22/17 07:25 11/22/17 07:25 Labs: Laboratory Last Values WBC 31.4 K/mm3 (4.5-11.0) H 11/22/17 07:25 RBC 3.22 M/mm3 (3.65-5.03) L 11/22/17 07:25 Hgb 8.0 gm/dl (11.8-15.2) L 11/22/17 07:25 Hct 26.7 % (35.5-45.6) L 11/22/17 07:25 MCV 83 fl (84-94) L 11/22/17 07:25 MCH 25 pg (28-32) L 11/22/17 07:25 MCHC 30 % (32-34) L 11/22/17 07:25 RDW 19.4 % (13.2-15.2) H 11/22/17 07:25 Plt Count 602 K/mm3 (140-440) H 11/22/17 07:25 Lymph % (Auto) 8.6 % (13.4-35.0) L 11/13/17 04:50 Waldo % (Auto) 11.1 % (0.0-7.3) H 11/13/17 04:50 Eos % (Auto) 0.0 % (0.0-4.3) 11/13/17 04:50 Baso % (Auto) 0.2 % (0.0-1.8) 11/13/17 04:50 Lymph # 1.1 K/mm3 (1.2-5.4) L 11/13/17 04:50 Waldo # 1.4 K/mm3 (0.0-0.8) H 11/13/17 04:50 Eos # 0.0 K/mm3 (0.0-0.4) 11/13/17 04:50 Baso # 0.0 K/mm3 (0.0-0.1) 11/13/17 04:50 Add Manual Diff Complete 11/21/17 13:43 Total Counted 100 11/21/17 13:43 Seg Neutrophils % Senior Animal Trainer 11/21/17 13:43 Seg Neuts % (Manual) 85.0 % (40.0-70.0) H 11/21/17 13:43 Band Neutrophils % 5.0 % 11/21/17 13:43 Lymphocytes % (Manual) 1.0 % (13.4-35.0) L 11/21/17 13:43 Reactive Lymphs % (Man) 0 % 11/21/17 13:43 Monocytes % (Manual) 6.0 % (0.0-7.3) 11/21/17 13:43 Eosinophils % (Manual) 0 % (0.0-4.3) 11/21/17 13:43 Basophils % (Manual) 0 % (0.0-1.8) 11/21/17 13:43 Metamyelocytes % 2.0 % 11/21/17 13:43 Myelocytes % 1.0 % 11/21/17 13:43 Promyelocytes % 0 % 11/21/17 13:43 Blast Cells % 0 % 11/21/17 13:43 Nucleated RBC % 2.0 % (0.0-0.9) H 11/21/17 13:43 Seg Neutrophils # 9.8 K/mm3 (1.8-7.7) H 11/13/17 04:50 Seg Neutrophils # Man 32.5 K/mm3 (1.8-7.7) H 11/21/17 13:43 Band Neutrophils # 1.9 K/mm3 11/21/17 13:43 Lymphocytes # (Manual) 0.4 K/mm3 (1.2-5.4) L 11/21/17 13:43 Abs React Lymphs (Man) 0.0 K/mm3 11/21/17 13:43 Monocytes # (Manual) 2.3 K/mm3 (0.0-0.8) H 11/21/17 13:43 Eosinophils # (Manual) 0.0 K/mm3 (0.0-0.4) 11/21/17 13:43 Basophils # (Manual) 0.0 K/mm3 (0.0-0.1) 11/21/17 13:43 Metamyelocytes # 0.8 K/mm3 11/21/17 13:43 Myelocytes # 0.4 K/mm3 11/21/17 13:43 Promyelocytes # 0.0 K/mm3 11/21/17 13:43 Blast Cells # 0.0 K/mm3 11/21/17 13:43 WBC Morphology Not Reportable 11/21/17 13:43 Hypersegmented Neuts Not Reportable 11/21/17 13:43 Hyposegmented Neuts Not Reportable 11/21/17 13:43 Hypogranular Neuts Not Reportable 11/21/17 13:43 Smudge Cells Not Reportable 11/21/17 13:43 Toxic Granulation Not Reportable 11/21/17 13:43 Toxic Vacuolation Not Reportable 11/21/17 13:43 Dohle Bodies Not Reportable 11/21/17 13:43 Pelger-Huet Anomaly Not Reportable 11/21/17 13:43 Evangelina Rods Not Reportable 11/21/17 13:43 Platelet Estimate Consistent w auto 11/21/17 13:43 Clumped Platelets Not Reportable 11/21/17 13:43 Plt Clumps, EDTA Not Reportable 11/21/17 13:43 Large Platelets Not Reportable 11/21/17 13:43 Giant Platelets Few 11/21/17 13:43 Platelet Satelliting Not Reportable 11/21/17 13:43 Plt Morphology Comment Not Reportable 11/21/17 13:43 RBC Morphology Not Reportable 11/21/17 13:43 Dimorphic RBCs Not Reportable 11/21/17 13:43 Polychromasia Few 11/21/17 13:43 Hypochromasia Few 11/21/17 13:43 Poikilocytosis Not Reportable 11/21/17 13:43 Anisocytosis Not Reportable 11/21/17 13:43 Microcytosis Not Reportable 11/21/17 13:43 Macrocytosis Not Reportable 11/21/17 13:43 Spherocytes Not Reportable 11/21/17 13:43 Pappenheimer Bodies Not Reportable 11/21/17 13:43 Sickle Cells Not Reportable 11/21/17 13:43 Target Cells Not Reportable 11/21/17 13:43 Tear Drop Cells Not Reportable 11/21/17 13:43 Ovalocytes Not Reportable 11/21/17 13:43 Stomatocytes Few 11/18/17 04:34 Helmet Cells Not Reportable 11/21/17 13:43 Dukes-Ceylon Bodies Not Reportable 11/21/17 13:43 Harrah Rings Not Reportable 11/21/17 13:43 Lucretia Cells Not Reportable 11/21/17 13:43 Bite Cells Not Reportable 11/21/17 13:43 Crenated Cell Not Reportable 11/21/17 13:43 Elliptocytes Not Reportable 11/21/17 13:43 Acanthocytes (Spur) Not Reportable 11/21/17 13:43 Rouleaux Not Reportable 11/21/17 13:43 Hemoglobin C Crystals Not Reportable 11/21/17 13:43 Schistocytes Not Reportable 11/21/17 13:43 Malaria parasites Not Reportable 11/21/17 13:43 Santo Bodies Not Reportable 11/21/17 13:43 Hem Pathologist Commnt No 11/21/17 13:43 PT 16.7 Sec. (12.2-14.9) H 11/18/17 04:34 INR 1.30 (0.87-1.13) H 11/18/17 04:34 APTT 31.7 Sec. (24.2-36.6) 11/12/17 00:23 POC ABG pH 7.417 (7.35-7.45) 11/22/17 03:53 POC ABG pCO2 22.2 (35-45) L 11/22/17 03:53 POC ABG pO2 94 (80-105) 11/22/17 03:53 POC ABG HCO3 14.3 11/22/17 03:53 POC ABG Total CO2 15 11/22/17 03:53 POC ABG O2 Sat 98 11/22/17 03:53 POC ABG Base Excess -10 11/22/17 03:53 FiO2 30 % 11/22/17 03:53 Sodium 147 mmol/L (137-145) H 11/22/17 07:25 Potassium 4.6 mmol/L (3.6-5.0) 11/22/17 07:25 Chloride 111.9 mmol/L (98-107) H 11/22/17 07:25 Carbon Dioxide 16 mmol/L (22-30) L 11/22/17 07:25 Anion Gap 24 mmol/L 11/22/17 07:25 BUN 72 mg/dL (9-20) H 11/22/17 07:25 Creatinine 5.1 mg/dL (0.8-1.5) H 11/22/17 07:25 Estimated GFR 14 ml/min 11/22/17 07:25 BUN/Creatinine Ratio 14 % 11/22/17 07:25 Glucose 181 mg/dL (75-100) H 11/22/17 07:25 POC Glucose 180 (70-105) H 11/22/17 06:00 Lactic Acid 5.00 mmol/L (0.7-2.0) H* 11/22/17 07:25 Calcium 7.1 mg/dL (8.4-10.2) L 11/22/17 07:25 Magnesium 2.70 mg/dL (1.7-2.3) H 11/19/17 04:44 Total Bilirubin 1.10 mg/dL (0.1-1.2) 11/11/17 23:20 AST 27 units/L (5-40) 11/11/17 23:20 ALT 40 units/L (7-56) 11/11/17 23:20 Alkaline Phosphatase 90 units/L (35-129) 11/11/17 23:20 Total Creatine Kinase 84 units/L (55-170) 11/12/17 20:03 CK-MB (CK-2) < 1.0 ng/mL (0.0-4.0) 11/12/17 20:03 CK-MB (CK-2) Rel Index 1.1 (0-4) 11/12/17 20:03 Troponin T 0.098 ng/mL (0.00-0.029) H 11/12/17 Unknown C-Reactive Protein 25.70 mg/dL (0.00-1.30) H 11/11/17 23:20 NT-Pro-B Natriuret Pep 792.4 pg/mL (0-900) 11/11/17 23:20 Total Protein 6.5 g/dL (6.3-8.2) 11/11/17 23:20 Albumin 2.5 g/dL (3.9-5) L 11/11/17 23:20 Albumin/Globulin Ratio 0.6 % 11/11/17 23:20 Triglycerides 86 mg/dL (2-149) 11/11/17 23:20 Cholesterol 82 mg/dL (50-199) 11/11/17 23:20 LDL Cholesterol Direct 42 mg/dL (50-130) L 11/11/17 23:20 HDL Cholesterol 24 mg/dL (40-59) L 11/11/17 23:20 Cholesterol/HDL Ratio 3.41 % 11/11/17 23:20 Lipase 30 units/L (13-60) 11/11/17 23:20 Urine Color Nicole (Yellow) 11/11/17 23:09 Urine Turbidity Cloudy (Clear) 11/11/17 23:09 Urine pH 5.0 (5.0-7.0) 11/11/17 23:09 Ur Specific [place] 1.025 (1.003-1.030) 11/11/17 23:09 Urine Protein 100 mg/dl mg/dL (Negative) 11/11/17 23:09 Urine Glucose (UA) 50 mg/dL (Negative) 11/11/17 23:09 Urine Ketones Neg mg/dL (Negative) 11/11/17 23:09 Urine Blood Neg (Negative) 11/11/17 23:09 Urine Nitrite Neg (Negative) 11/11/17 23:09 Urine Bilirubin Neg (Negative) 11/11/17 23:09 Urine Urobilinogen 4.0 mg/dL (<2.0) 11/11/17 23:09 Ur Leukocyte Esterase Neg (Negative) 11/11/17 23:09 Urine WBC (Auto) 5.0 /HPF (0.0-6.0) 11/11/17 23:09 Urine RBC (Auto) 4.0 /HPF (0.0-6.0) 11/11/17 23:09 Urine Bacteria (Auto) 3+ /HPF (Negative) 11/11/17 23:09 Amorphous Crystals 3+ 11/11/17 23:09 Hyaline Casts 76 /LPF 11/11/17 23:09 Urine Mucus 2+ /HPF 11/11/17 23:09
[2017-11-22] MEDS ORDERED: NACL 0.9% 100 ML IV PRN ×2 (13:56→19:53)
--- NOTE | 2017-11-22 15:01 | Progress Note ---
Assessment and Plan - Patient Problems (1) Ventilator dependence Current Visit: Yes Status: Acute Plan to address problem: ween as tolerated (2) Acute respiratory failure with hypoxemia Current Visit: Yes Status: Acute Plan to address problem: Titrate O2 to keep sat.+92% (3) Respiratory failure Current Visit: No Status: Acute Plan to address problem: tracheotomy stable trache ties changed & opsite removed, sutures intact (4) Tracheostomy status Current Visit: Yes Status: Acute Subjective Date of service: 11/22/17 Principal diagnosis: coffee-ground emesis Interval history: POD #2 Pt. resting comfortably, sedated. Objective - Constitutional Vitals: Vital Signs - 12hr 11/22/17 11/22/17 11/22/17 03:00 03:15 03:30 Temperature Pulse Rate 146 H 136 H 137 H Pulse Rate [ Right From Monitor] Respiratory 26 H 33 H 31 H Rate Blood Pressure 117/78 109/69 121/62 O2 Sat by Pulse 99 99 99 Oximetry 11/22/17 11/22/17 11/22/17 03:41 03:45 04:00 Temperature 99.2 F Pulse Rate 136 H 135 H 139 H Pulse Rate [ 150 H Right From Monitor] Respiratory 32 H 38 H Rate Blood Pressure 108/62 101/65 112/77 O2 Sat by Pulse 99 99 99 Oximetry 11/22/17 11/22/17 11/22/17 04:15 04:30 04:45 Temperature Pulse Rate 132 H 130 H 130 H Pulse Rate [ Right From Monitor] Respiratory 34 H 29 H 31 H Rate Blood Pressure 114/64 109/68 96/57 O2 Sat by Pulse 99 100 99 Oximetry 11/22/17 11/22/17 11/22/17 05:00 05:15 05:30 Temperature Pulse Rate 136 H 136 H 135 H Pulse Rate [ Right From Monitor] Respiratory 32 H 32 H 31 H Rate Blood Pressure 105/65 109/65 104/68 O2 Sat by Pulse 99 99 99 Oximetry 11/22/17 11/22/17 11/22/17 05:45 06:00 06:15 Temperature Pulse Rate 135 H 119 H 133 H Pulse Rate [ Right From Monitor] Respiratory 32 H 30 H 30 H Rate Blood Pressure 111/68 92/58 111/61 O2 Sat by Pulse 99 99 99 Oximetry 11/22/17 11/22/17 11/22/17 06:30 06:45 07:00 Temperature Pulse Rate 132 H 139 H 128 H Pulse Rate [ Right From Monitor] Respiratory 31 H 33 H 31 H Rate Blood Pressure 101/62 124/77 112/59 O2 Sat by Pulse 99 99 100 Oximetry 11/22/17 11/22/17 11/22/17 07:15 07:30 07:42 Temperature Pulse Rate 131 H 128 H 137 H Pulse Rate [ Right From Monitor] Respiratory 30 H 29 H Rate Blood Pressure 117/56 102/64 104/64 O2 Sat by Pulse 99 99 100 Oximetry 11/22/17 11/22/17 11/22/17 07:45 08:00 08:15 Temperature 102.1 F H Pulse Rate 129 H 137 H 136 H Pulse Rate [ 134 H Right From Monitor] Respiratory 29 H 31 H 32 H Rate Blood Pressure 104/64 112/71 106/69 O2 Sat by Pulse 99 99 99 Oximetry 11/22/17 11/22/17 11/22/17 08:30 08:45 09:00 Temperature Pulse Rate 137 H 128 H 127 H Pulse Rate [ Right From Monitor] Respiratory 31 H 30 H 30 H Rate Blood Pressure 114/64 108/65 100/64 O2 Sat by Pulse 99 99 99 Oximetry 11/22/17 11/22/17 11/22/17 09:07 09:15 09:30 Temperature Pulse Rate 133 H 130 H Pulse Rate [ Right From Monitor] Respiratory 29 H 34 H 32 H Rate Blood Pressure 109/73 101/67 O2 Sat by Pulse 100 99 Oximetry 11/22/17 11/22/17 11/22/17 09:45 10:00 10:15 Temperature Pulse Rate 127 H 135 H 133 H Pulse Rate [ Right From Monitor] Respiratory 30 H 31 H 31 H Rate Blood Pressure 104/69 114/66 116/65 O2 Sat by Pulse 99 99 99 Oximetry 11/22/17 11/22/17 11/22/17 10:30 10:45 11:00 Temperature Pulse Rate 133 H 139 H 132 H Pulse Rate [ Right From Monitor] Respiratory 30 H 32 H 31 H Rate Blood Pressure 114/69 121/74 114/69 O2 Sat by Pulse 99 99 99 Oximetry 11/22/17 11/22/17 11/22/17 11:15 11:30 11:45 Temperature Pulse Rate 124 H 125 H 131 H Pulse Rate [ Right From Monitor] Respiratory 25 H 27 H 27 H Rate Blood Pressure 101/62 99/71 116/68 O2 Sat by Pulse 99 99 100 Oximetry 11/22/17 11/22/17 11/22/17 11:59 12:00 12:15 Temperature Pulse Rate 125 H 126 H 118 H Pulse Rate [ Right From Monitor] Respiratory 26 H 28 H Rate Blood Pressure 108/66 108/66 98/68 O2 Sat by Pulse 99 99 99 Oximetry General appearance: Present: no acute distress - EENT Eyes: PERRL ENT: clear oral mucosa, poor dentition, other (coffee ground sputum suctioned from transnasally from oropharynx ) Ears: bilateral: scarring (pinna w/o breakdown) - Neck Neck: supple, other (stoma sutures intact, surgicel melting) - Respiratory Respiratory effort: normal, other (on vent, suctioned dark sputum) - Breasts Breasts: deferred - Cardiovascular Rhythm: regular Heart Sounds: Present: S1 & S2 Extremities: normal color Extremity abnormal: edema - Gastrointestinal General gastrointestinal: Present: soft, non-tender Rectal Exam: deferred - Genitourinary Male genitourinary: deferred - Integumentary Integumentary: clear, warm, dry - Musculoskeletal Musculoskeletal: other (sedated) - Neurologic Neurologic: other (sedated) - Psychiatric Psychiatric: other (sedated) - Labs CBC & Chem 7: 11/22/17 07:25 11/22/17 07:25 Labs: Abnormal lab results 11/21/17 11/21/17 11/22/17 Range/Units 13:43 19:09 00:05 WBC (4.5-11.0) K/mm3 RBC (3.65-5.03) M/mm3 Hgb (11.8-15.2) gm/dl Hct (35.5-45.6) % MCV (84-94) fl MCH (28-32) pg MCHC (32-34) % RDW (13.2-15.2) % Plt Count (140-440) K/mm3 Seg Neuts % (Manual) 85.0 H (40.0-70.0) % Lymphocytes % (Manual) 1.0 L (13.4-35.0) % Nucleated RBC % 2.0 H (0.0-0.9) % Seg Neutrophils # Man 32.5 H (1.8-7.7) K/mm3 Lymphocytes # (Manual) 0.4 L (1.2-5.4) K/mm3 Monocytes # (Manual) 2.3 H (0.0-0.8) K/mm3 POC ABG pCO2 20.0 L (35-45) Sodium (137-145) mmol/L Chloride (98-107) mmol/L Carbon Dioxide (22-30) mmol/L BUN (9-20) mg/dL Creatinine (0.8-1.5) mg/dL Glucose (75-100) mg/dL POC Glucose 127 H (70-105) Lactic Acid (0.7-2.0) mmol/L Calcium (8.4-10.2) mg/dL 11/22/17 11/22/17 11/22/17 Range/Units 03:53 06:00 07:25 WBC (4.5-11.0) K/mm3 RBC (3.65-5.03) M/mm3 Hgb (11.8-15.2) gm/dl Hct (35.5-45.6) % MCV (84-94) fl MCH (28-32) pg MCHC (32-34) % RDW (13.2-15.2) % Plt Count (140-440) K/mm3 Seg Neuts % (Manual) (40.0-70.0) % Lymphocytes % (Manual) (13.4-35.0) % Nucleated RBC % (0.0-0.9) % Seg Neutrophils # Man (1.8-7.7) K/mm3 Lymphocytes # (Manual) (1.2-5.4) K/mm3 Monocytes # (Manual) (0.0-0.8) K/mm3 POC ABG pCO2 22.2 L (35-45) Sodium 147 H (137-145) mmol/L Chloride 111.9 H (98-107) mmol/L Carbon Dioxide 16 L (22-30) mmol/L BUN 72 H (9-20) mg/dL Creatinine 5.1 H (0.8-1.5) mg/dL Glucose 181 H (75-100) mg/dL POC Glucose 180 H (70-105) Lactic Acid (0.7-2.0) mmol/L Calcium 7.1 L (8.4-10.2) mg/dL 11/22/17 11/22/17 11/22/17 Range/Units 07:25 07:25 12:05 WBC 31.4 H (4.5-11.0) K/mm3 RBC 3.22 L (3.65-5.03) M/mm3 Hgb 8.0 L (11.8-15.2) gm/dl Hct 26.7 L (35.5-45.6) % MCV 83 L (84-94) fl MCH 25 L (28-32) pg MCHC 30 L (32-34) % RDW 19.4 H (13.2-15.2) % Plt Count 602 H (140-440) K/mm3 Seg Neuts % (Manual) (40.0-70.0) % Lymphocytes % (Manual) (13.4-35.0) % Nucleated RBC % (0.0-0.9) % Seg Neutrophils # Man (1.8-7.7) K/mm3 Lymphocytes # (Manual) (1.2-5.4) K/mm3 Monocytes # (Manual) (0.0-0.8) K/mm3 POC ABG pCO2 (35-45) Sodium (137-145) mmol/L Chloride (98-107) mmol/L Carbon Dioxide (22-30) mmol/L BUN (9-20) mg/dL Creatinine (0.8-1.5) mg/dL Glucose (75-100) mg/dL POC Glucose 182 H (70-105) Lactic Acid 5.00 H* (0.7-2.0) mmol/L Calcium (8.4-10.2) mg/dL
--- NOTE | 2017-11-22 16:09 | Operative Report ---
Operative Report Operative Report: EXAM: 1. Ultrasound-guided puncture of the left common femoral vein 2. Placement of a left common femoral vein nontunneled noncuffed hemodialysis catheter. DATE: 11/22/17 INDICATION: Acute renal failure requiring hemodialysis access. MEDICATIONS: Local anesthetic (1% lidocaine). DEVICES: Triple lumen nontunneled noncuffed hemodialysis catheter MACHINE TRIMMER: NICCI HONG MD CONTRAST: None PROCEDURE: The risks, benefits, and alternatives were discussed and informed consent was obtained. The patient's left common femoral vein was assessed with ultrasound at bedside and determined to be patent prior to procedure. The patient was prepped and draped in a sterile fashion. The puncture site was anesthetized. Under sonographic guidance, the left common femoral vein was punctured with a 18-gauge micropuncture needle and a 0.035 inch wire was advanced through the needle. Over the 0.035 inch wire, dilatation was performed. The catheter was advanced over the wire. 3-0 silk suture was used to secure the catheter. The catheter was charged with saline. Biopatch and tegaderm were applied. Patient tolerated the procedure without immediate post procedual complication. FINDINGS: 1. Ultrasound documented patency of the left common femoral vein. The vessel was accessed under direct ultrasound guidance. IMPRESSION: 1. Successful ultrasound guided bedside placement of a left common femoral vein nontunneled noncuffed dual lumen hemodialysis catheter.
[2017-11-22 20:31] LABS: Hepatitis A Antibody IgM Non-Reactive (NonReactive); Hepatitis B Core IgM Non-Reactive (NonReactive); Hepatitis B Surface Antigen Non-Reactive (Negative); Hepatitis C Virus Antibody Reactive (NonReactive)
[2017-11-23] MEDS: SOLU-Medrol IV SCH (01:18)
[2017-11-23] MEDS: LEVOPHED 8 MG in NACL 0.9% 250ML 242 ML IV SCH (01:18)
[2017-11-23] MEDS: ZOSYN/NS 2.25 GM/50ML 2.25 GM/50 ML BAG IV SCH ×3 (06:30→21:41)
[2017-11-23 07:41] LABS: Calcium 7.5 mg/dL (8.4-10.2)
[2017-11-23] MEDS: PROTONIX (nf) FEEDTUBE SCH ×2 (10:36→21:40)
[2017-11-23] MEDS: SODIUM CHLORIDE FLUSH SYRINGE 10 ML IV SCH ×2 (10:42→22:00)
[2017-11-23] MEDS ORDERED: NACL 0.9% 100 ML IV PRN (10:46)
--- NOTE | 2017-11-23 10:46 | Progress Note ---
Subjective Principal diagnosis: coffee-ground emesis Interval history: Patient was seen today for follow-up on multiple renal related issues in the critical care setting Dialysis access was placed by vascular yesterday patient started dialysis Current vitals labs intake output medications were reviewed Started on dialysis yesterday, Interdisciplinary notes were also reviewed Past medical history: Reviewed Family history: Reviewed Allergies: Reviewed Current medication: Reviewed Physical examination: General no acute distress HEENT: Oral mucosa moist Neck: Supple no JVD Chest: Few bilateral basilar crackles posteriorly otherwise clear anteriorly Heart: Regular rate and rhythm S1-S2 heard no S3-S4 Abdomen: Soft nontender no organomegaly Extremities: Minimal edema no peripheral cyanosis dry skin Psychiatric: No agitation and aggression noted Assessment and plan: Acute kidney injury patient has been initiated on renal replacement therapy after discussing with patient's daughter at length, his overall prognosis remains very poor she is aware of that hemodynamically he may not tolerate dialysis, so far he has had one dialysis treatment Will order for hemodialysis treatment today again and follow Hemodialysis can be continued as tolerated Care plan has been discussed with patient's daughter Jannette over the phone who has been clearly made aware about limited to very poor prognosis and dialysis alone is not going to change his entire picture Is currently status post carotid endarterectomy Metabolic acidosis: Initiated on renal placement therapy we will discontinue bicarbonate Monitor daily labs avoid nephrotoxic medication Status post tracheotomy Hemodynamically somewhat better today ? Correction of acidosis helped Prognosis remains very poor We'll continue to follow and make recommendation from renal standpoint Objective - Vital Signs Vital signs: Vital Signs - 12hr 11/22/17 11/22/17 11/22/17 23:00 23:05 23:15 Temperature 98.2 F Pulse Rate 119 H 123 H 115 H Pulse Rate [ Right From Monitor] Respiratory 29 H 32 H 26 H Rate Blood Pressure 90/54 85/56 72/41 O2 Sat by Pulse 100 100 Oximetry O2 Sat by Pulse Oximetry [ Assessment] O2 Sat by Pulse 99 Oximetry [ Bilateral Throughout] 11/22/17 11/22/17 11/22/17 23:30 23:45 23:52 Temperature Pulse Rate 117 H 109 H 110 H Pulse Rate [ Right From Monitor] Respiratory 29 H 25 H Rate Blood Pressure 90/52 86/47 100/43 O2 Sat by Pulse 100 100 100 Oximetry O2 Sat by Pulse 100 Oximetry [ Assessment] O2 Sat by Pulse Oximetry [ Bilateral Throughout] 11/23/17 11/23/17 11/23/17 00:00 00:01 00:15 Temperature 98.0 F Pulse Rate 126 H 104 H Pulse Rate [ 110 H Right From Monitor] Respiratory 30 H 23 24 Rate Blood Pressure 100/43 100/46 O2 Sat by Pulse 100 100 100 Oximetry O2 Sat by Pulse Oximetry [ Assessment] O2 Sat by Pulse Oximetry [ Bilateral Throughout] 11/23/17 11/23/17 11/23/17 00:30 00:45 01:00 Temperature Pulse Rate 103 H 106 H 104 H Pulse Rate [ Right From Monitor] Respiratory 23 24 26 H Rate Blood Pressure 93/51 103/50 96/56 O2 Sat by Pulse 100 100 100 Oximetry O2 Sat by Pulse Oximetry [ Assessment] O2 Sat by Pulse Oximetry [ Bilateral Throughout] 11/23/17 11/23/17 11/23/17 01:15 01:30 01:45 Temperature Pulse Rate 119 H 101 H 102 H Pulse Rate [ Right From Monitor] Respiratory 21 26 H 24 Rate Blood Pressure 113/62 107/51 109/55 O2 Sat by Pulse 100 100 100 Oximetry O2 Sat by Pulse Oximetry [ Assessment] O2 Sat by Pulse Oximetry [ Bilateral Throughout] 11/23/17 11/23/17 11/23/17 02:00 02:15 02:30 Temperature Pulse Rate 97 H 95 H 98 H Pulse Rate [ Right From Monitor] Respiratory 23 24 23 Rate Blood Pressure 109/50 108/52 104/51 O2 Sat by Pulse 100 100 100 Oximetry O2 Sat by Pulse Oximetry [ Assessment] O2 Sat by Pulse Oximetry [ Bilateral Throughout] 11/23/17 11/23/17 11/23/17 02:45 03:00 03:15 Temperature Pulse Rate 100 H 99 H 94 H Pulse Rate [ Right From Monitor] Respiratory 24 22 22 Rate Blood Pressure 113/54 108/53 113/51 O2 Sat by Pulse 100 99 100 Oximetry O2 Sat by Pulse Oximetry [ Assessment] O2 Sat by Pulse Oximetry [ Bilateral Throughout] 11/23/17 11/23/17 11/23/17 03:30 03:45 04:00 Temperature 98.4 F Pulse Rate 101 H 102 H 98 H Pulse Rate [ 96 H Right From Monitor] Respiratory 26 H 24 24 Rate Blood Pressure 118/52 113/59 114/53 O2 Sat by Pulse 100 100 100 Oximetry O2 Sat by Pulse Oximetry [ Assessment] O2 Sat by Pulse Oximetry [ Bilateral Throughout] 11/23/17 11/23/17 11/23/17 04:15 04:31 04:45 Temperature Pulse Rate 96 H 100 H 109 H Pulse Rate [ Right From Monitor] Respiratory 22 17 21 Rate Blood Pressure 112/53 109/62 113/54 O2 Sat by Pulse 100 31 L 99 Oximetry O2 Sat by Pulse Oximetry [ Assessment] O2 Sat by Pulse Oximetry [ Bilateral Throughout] 11/23/17 11/23/17 11/23/17 04:55 05:00 05:15 Temperature Pulse Rate 97 H 93 H 91 H Pulse Rate [ Right From Monitor] Respiratory 25 H 25 H Rate Blood Pressure 113/54 103/45 105/46 O2 Sat by Pulse 99 100 98 Oximetry O2 Sat by Pulse Oximetry [ Assessment] O2 Sat by Pulse Oximetry [ Bilateral Throughout] 11/23/17 11/23/17 11/23/17 05:30 05:45 06:00 Temperature Pulse Rate 90 99 H 91 H Pulse Rate [ Right From Monitor] Respiratory 25 H 25 H 18 Rate Blood Pressure 105/45 116/56 102/48 O2 Sat by Pulse 100 100 100 Oximetry O2 Sat by Pulse Oximetry [ Assessment] O2 Sat by Pulse Oximetry [ Bilateral Throughout] 11/23/17 11/23/17 11/23/17 06:15 06:30 06:45 Temperature Pulse Rate 92 H 90 85 Pulse Rate [ Right From Monitor] Respiratory 26 H 25 H 23 Rate Blood Pressure 110/51 111/48 108/48 O2 Sat by Pulse 100 100 99 Oximetry O2 Sat by Pulse Oximetry [ Assessment] O2 Sat by Pulse Oximetry [ Bilateral Throughout] 11/23/17 11/23/17 11/23/17 07:00 07:15 07:30 Temperature Pulse Rate 100 H 89 90 Pulse Rate [ Right From Monitor] Respiratory 23 23 24 Rate Blood Pressure 95/56 99/51 115/50 O2 Sat by Pulse 100 100 100 Oximetry O2 Sat by Pulse Oximetry [ Assessment] O2 Sat by Pulse Oximetry [ Bilateral Throughout] 11/23/17 11/23/17 11/23/17 07:45 08:00 08:15 Temperature 98.9 F Pulse Rate 104 H 94 H 100 H Pulse Rate [ 92 H Right From Monitor] Respiratory 25 H 24 27 H Rate Blood Pressure 131/62 110/54 131/62 O2 Sat by Pulse 100 100 100 Oximetry O2 Sat by Pulse 100 Oximetry [ Assessment] O2 Sat by Pulse Oximetry [ Bilateral Throughout] 11/23/17 11/23/17 11/23/17 08:30 08:45 09:00 Temperature Pulse Rate 97 H 99 H 96 H Pulse Rate [ Right From Monitor] Respiratory 19 22 19 Rate Blood Pressure 124/63 124/63 110/54 O2 Sat by Pulse 100 100 100 Oximetry O2 Sat by Pulse Oximetry [ Assessment] O2 Sat by Pulse Oximetry [ Bilateral Throughout] 11/23/17 11/23/17 11/23/17 09:15 09:30 09:45 Temperature Pulse Rate 89 97 H 88 Pulse Rate [ Right From Monitor] Respiratory 21 22 25 H Rate Blood Pressure 110/54 105/54 105/54 O2 Sat by Pulse 100 100 100 Oximetry O2 Sat by Pulse Oximetry [ Assessment] O2 Sat by Pulse Oximetry [ Bilateral Throughout] 11/23/17 11/23/17 11/23/17 10:00 10:15 10:30 Temperature Pulse Rate 90 89 87 Pulse Rate [ Right From Monitor] Respiratory 20 23 22 Rate Blood Pressure 113/58 113/58 110/62 O2 Sat by Pulse 100 100 100 Oximetry O2 Sat by Pulse Oximetry [ Assessment] O2 Sat by Pulse Oximetry [ Bilateral Throughout] - Lab 11/22/17 07:25 11/23/17 07:05 Most recent lab results Calcium 7.5 mg/dL (8.4-10.2) L 11/23/17 07:05 Magnesium 2.70 mg/dL (1.7-2.3) H 11/19/17 04:44
--- NOTE | 2017-11-23 10:55 | Progress Note ---
Assessment and Plan Assessment and plan: Mr. 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 He had a Carotid doppler done that revealed a right ICA 50-79% stenosis. CTA of the neck revealed 80% stenosis of the right ICA with probable 50% stenosis of the origin of the right common carotid artery. His symptoms were thought to be due to the Carotid artery stenosis which was disheartening since he was on Aspirin and plavix. He was scheduled for right CEA but needed Cardiac clearance. He underwent stress test on 10/05/17 and Steward/Stewardess Deck stated he was stable for non-cardiac history, low to moderate perioperative risk. So, he underwent right carotid enarterectomy on 10/09/17. Following the surgery, he developed recurrent left sided weakness/hemiparesis was taken to OR again on for Open Thrombectomy of Right Internal Carotid Artery and Injection of TPA into the Distal Artery. CT head obtained on 10/12/17 showed massive right cerebral hemisphere acute CVA with midline shift. He was discharged on 11/10/17 to [facility] but returned to ED on 11/12/17 for sob. He was admitted for Aspiration post-obstructive pneumonia with suspected mucus plug and subsequently intubated on admission. ON 11/20/17, patient went for Tracheostomy by Dr. Hughes, ENT. Then on 11/21/17 patient went into shock, most sepsis as WBC went up to 38k; most likely Aspiration pneumonitis, antibiotics restarted. He was on maximum dose of Levophed and Neosynephrine (right femoral line placed 11/21/[address] Celis for vasopressors). Then 11/22/17 (Thursday morning) the Neosynephrine weaned off and Levophed down to 10 mcg, also Dr. Palmer placed a left femoral tunnel cath for Hemodialysis. Today, Levophed has been weaned off. * CTA chest IMPRESSION: There is no thoracic aortic aneurysm or dissection.. There is no pulmonary embolism.. There is complete atelectasis of the left lung causing volume loss and mediastinal shift to the left. This is due to blockage of the left bronchus by the endotracheal tube which is in the right mainstem bronchus. There is no pleural effusion or pneumothorax.. There is pneumoperitoneum and ascites.. Dr. Navarro was notified by telephone at 3:20 a.m. central. * 1v Abd XRAY IMPRESSION: Nasogastric tube ends in the stomach. A PEG tube is identified. Bowel gas pattern is nonobstructive. -Acute hypoxic respiratory failure due to Pneumonia on MV>96 hours s/p Tracheostomy 11/20/17: continue MV, daily weaning attempt -Leukocyotosis with Sepsis with transient septic shock, poa: shock resolved, continue abx, ID is following -Aspiration pneumonia, with mucus plugging/post obstructive pna poa: Apple Checker is following, following sunction protocols -Acute encephalopathy: treat supportively -Hypernatremia: treat with free water, monitor bmp closely -Hypokalemia: replace and monitor closely -ARF vasomotor nephropathy, poa: IV fluids, monitor bmp closely -Dysphagia with aspiration: s/p peg tube -Acute on chronic blood loss anemia w/Coffee-ground material from peg tube: GI is following, treat with ppi iv bid, EGD done 11/18/17 showed 8 mm cratered, 10 mm linear ulcer proximal lesser curvature with erythema but no other bleeding stigmata, gastritis and 4-5 cm hiatal hernia -Advance care planning: full code CCT 32 minutes History Interval history: Patient was seen and examined. Follow-up on current diagnosis of respiratory failure. He was on maximum dose of Levophed and Neosynephrine iv drip. Then yesterday morning (Sat) the Neosynephrine weaned off and Levophed down to 10 mcg , NOW (sun), levophed weaned off . Intubated via Trach now. Already had peg upon admission. Imaging, nursing note, chart, labs and old chart reviewed. Hospitalist Physical - Physical exam Narrative exam: GEN: ill appearing, not sedated, on MV via trach, moderate to severe increase accessory muscle usage. HEENT: NCAT, pupils reactive, anicteric, NECK: supple, no adenopathy, no thyromegaly, no JVD, trach in place, I do not see any pus or bleeding around trach CVS/HEART: RRR, normal S1S2, pulses present bilaterally CHEST/LUNGS: Symmetrical chest expansion, good air entry bilaterally GI/Abdomen: soft, distended, pbs, +peg tube in place EXT/Skin: generalized edema x 4 MSK: left hemiparesis Neuro: doesn't follow commands Psych: confused and semi-comatose state - Constitutional Vitals: Temp Pulse Resp BP Pulse Ox 98.9 F 87 22 110/62 100 11/23/17 08:00 11/23/17 10:30 11/23/17 10:30 11/23/17 10:30 11/23/17 10:30 General appearance: Present: no acute distress Results - Labs CBC & Chem 7: 11/22/17 07:25 11/23/17 07:05 Labs: Laboratory Last Values WBC 31.4 K/mm3 (4.5-11.0) H 11/22/17 07:25 RBC 3.22 M/mm3 (3.65-5.03) L 11/22/17 07:25 Hgb 8.0 gm/dl (11.8-15.2) L 11/22/17 07:25 Hct 26.7 % (35.5-45.6) L 11/22/17 07:25 MCV 83 fl (84-94) L 11/22/17 07:25 MCH 25 pg (28-32) L 11/22/17 07:25 MCHC 30 % (32-34) L 11/22/17 07:25 RDW 19.4 % (13.2-15.2) H 11/22/17 07:25 Plt Count 602 K/mm3 (140-440) H 11/22/17 07:25 Lymph % (Auto) 8.6 % (13.4-35.0) L 11/13/17 04:50 [place] % (Auto) 11.1 % (0.0-7.3) H 11/13/17 04:50 Eos % (Auto) 0.0 % (0.0-4.3) 11/13/17 04:50 Baso % (Auto) 0.2 % (0.0-1.8) 11/13/17 04:50 Lymph # 1.1 K/mm3 (1.2-5.4) L 11/13/17 04:50 [place] # 1.4 K/mm3 (0.0-0.8) H 11/13/17 04:50 Eos # 0.0 K/mm3 (0.0-0.4) 11/13/17 04:50 Baso # 0.0 K/mm3 (0.0-0.1) 11/13/17 04:50 Add Manual Diff Complete 11/21/17 13:43 Total Counted 100 11/21/17 13:43 Seg Neutrophils % Photographic Specialist 11/21/17 13:43 Seg Neuts % (Manual) 85.0 % (40.0-70.0) H 11/21/17 13:43 Band Neutrophils % 5.0 % 11/21/17 13:43 Lymphocytes % (Manual) 1.0 % (13.4-35.0) L 11/21/17 13:43 Reactive Lymphs % (Man) 0 % 11/21/17 13:43 Monocytes % (Manual) 6.0 % (0.0-7.3) 11/21/17 13:43 Eosinophils % (Manual) 0 % (0.0-4.3) 11/21/17 13:43 Basophils % (Manual) 0 % (0.0-1.8) 11/21/17 13:43 Metamyelocytes % 2.0 % 11/21/17 13:43 Myelocytes % 1.0 % 11/21/17 13:43 Promyelocytes % 0 % 11/21/17 13:43 Blast Cells % 0 % 11/21/17 13:43 Nucleated RBC % 2.0 % (0.0-0.9) H 11/21/17 13:43 Seg Neutrophils # 9.8 K/mm3 (1.8-7.7) H 11/13/17 04:50 Seg Neutrophils # Man 32.5 K/mm3 (1.8-7.7) H 11/21/17 13:43 Band Neutrophils # 1.9 K/mm3 11/21/17 13:43 Lymphocytes # (Manual) 0.4 K/mm3 (1.2-5.4) L 11/21/17 13:43 Abs React Lymphs (Man) 0.0 K/mm3 11/21/17 13:43 Monocytes # (Manual) 2.3 K/mm3 (0.0-0.8) H 11/21/17 13:43 Eosinophils # (Manual) 0.0 K/mm3 (0.0-0.4) 11/21/17 13:43 Basophils # (Manual) 0.0 K/mm3 (0.0-0.1) 11/21/17 13:43 Metamyelocytes # 0.8 K/mm3 11/21/17 13:43 Myelocytes # 0.4 K/mm3 11/21/17 13:43 Promyelocytes # 0.0 K/mm3 11/21/17 13:43 Blast Cells # 0.0 K/mm3 11/21/17 13:43 WBC Morphology Not Reportable 11/21/17 13:43 Hypersegmented Neuts Not Reportable 11/21/17 13:43 Hyposegmented Neuts Not Reportable 11/21/17 13:43 Hypogranular Neuts Not Reportable 11/21/17 13:43 Smudge Cells Not Reportable 11/21/17 13:43 Toxic Granulation Not Reportable 11/21/17 13:43 Toxic Vacuolation Not Reportable 11/21/17 13:43 Dohle Bodies Not Reportable 11/21/17 13:43 Pelger-Huet Anomaly Not Reportable 11/21/17 13:43 Evangelina Rods Not Reportable 11/21/17 13:43 Platelet Estimate Consistent w auto 11/21/17 13:43 Clumped Platelets Not Reportable 11/21/17 13:43 Plt Clumps, EDTA Not Reportable 11/21/17 13:43 Large Platelets Not Reportable 11/21/17 13:43 Giant Platelets Few 11/21/17 13:43 Platelet Satelliting Not Reportable 11/21/17 13:43 Plt Morphology Comment Not Reportable 11/21/17 13:43 RBC Morphology Not Reportable 11/21/17 13:43 Dimorphic RBCs Not Reportable 11/21/17 13:43 Polychromasia Few 11/21/17 13:43 Hypochromasia Few 11/21/17 13:43 Poikilocytosis Not Reportable 11/21/17 13:43 Anisocytosis Not Reportable 11/21/17 13:43 Microcytosis Not Reportable 11/21/17 13:43 Macrocytosis Not Reportable 11/21/17 13:43 Spherocytes Not Reportable 11/21/17 13:43 Pappenheimer Bodies Not Reportable 11/21/17 13:43 Sickle Cells Not Reportable 11/21/17 13:43 Target Cells Not Reportable 11/21/17 13:43 Tear Drop Cells Not Reportable 11/21/17 13:43 Ovalocytes Not Reportable 11/21/17 13:43 Stomatocytes Few 11/18/17 04:34 Helmet Cells Not Reportable 11/21/17 13:43 [place] Bodies Not Reportable 11/21/17 13:43 V[place]on Rings Not Reportable 11/21/17 13:43 [place] Cells Not Reportable 11/21/17 13:43 Bite Cells Not Reportable 11/21/17 13:43 Crenated Cell Not Reportable 11/21/17 13:43 Elliptocytes Not Reportable 11/21/17 13:43 Acanthocytes (Spur) Not Reportable 11/21/17 13:43 Rouleaux Not Reportable 11/21/17 13:43 Hemoglobin C Crystals Not Reportable 11/21/17 13:43 Schistocytes Not Reportable 11/21/17 13:43 Malaria parasites Not Reportable 11/21/17 13:43 [place] Bodies Not Reportable 11/21/17 13:43 Hem Pathologist Commnt No 11/21/17 13:43 PT 16.7 Sec. (12.2-14.9) H 11/18/17 04:34 INR 1.30 (0.87-1.13) H 11/18/17 04:34 APTT 31.7 Sec. (24.2-36.6) 11/12/17 00:23 POC ABG pH 7.505 (7.35-7.45) H 11/23/17 04:56 POC ABG pCO2 26.3 (35-45) L 11/23/17 04:56 POC ABG pO2 100 (80-105) 11/23/17 04:56 POC ABG HCO3 20.8 11/23/17 04:56 POC ABG Total CO2 22 11/23/17 04:56 POC ABG O2 Sat 98 11/23/17 04:56 POC ABG Base Excess -2 11/23/17 04:56 FiO2 30 % 11/23/17 04:56 Sodium 145 mmol/L (137-145) 11/23/17 07:05 Potassium 3.9 mmol/L (3.6-5.0) 11/23/17 07:05 Chloride 103.6 mmol/L (98-107) 11/23/17 07:05 Carbon Dioxide 18 mmol/L (22-30) L 11/23/17 07:05 Anion Gap 27 mmol/L 11/23/17 07:05 BUN 61 mg/dL (9-20) H 11/23/17 07:05 Creatinine 4.2 mg/dL (0.8-1.5) H 11/23/17 07:05 Estimated GFR 17 ml/min 11/23/17 07:05 BUN/Creatinine Ratio 15 % 11/23/17 07:05 Glucose 153 mg/dL (75-100) H 11/23/17 07:05 POC Glucose 165 (70-105) H 11/23/17 01:28 Lactic Acid 5.00 mmol/L (0.7-2.0) H* 11/22/17 07:25 Calcium 7.5 mg/dL (8.4-10.2) L 11/23/17 07:05 Magnesium 2.70 mg/dL (1.7-2.3) H 11/19/17 04:44 Total Bilirubin 1.10 mg/dL (0.1-1.2) 11/11/17 23:20 AST 27 units/L (5-40) 11/11/17 23:20 ALT 40 units/L (7-56) 11/11/17 23:20 Alkaline Phosphatase 90 units/L (35-129) 11/11/17 23:20 Total Creatine Kinase 84 units/L (55-170) 11/12/17 20:03 CK-MB (CK-2) < 1.0 ng/mL (0.0-4.0) 11/12/17 20:03 CK-MB (CK-2) Rel Index 1.1 (0-4) 11/12/17 20:03 Troponin T 0.098 ng/mL (0.00-0.029) H 11/12/17 Unknown C-Reactive Protein 25.70 mg/dL (0.00-1.30) H 11/11/17 23:20 NT-Pro-B Natriuret Pep 792.4 pg/mL (0-900) 11/11/17 23:20 Total Protein 6.5 g/dL (6.3-8.2) 11/11/17 23:20 Albumin 2.5 g/dL (3.9-5) L 11/11/17 23:20 Albumin/Globulin Ratio 0.6 % 11/11/17 23:20 Triglycerides 86 mg/dL (2-149) 11/11/17 23:20 Cholesterol 82 mg/dL (50-199) 11/11/17 23:20 LDL Cholesterol Direct 42 mg/dL (50-130) L 11/11/17 23:20 HDL Cholesterol 24 mg/dL (40-59) L 11/11/17 23:20 Cholesterol/HDL Ratio 3.41 % 11/11/17 23:20 Lipase 30 units/L (13-60) 11/11/17 23:20 Urine Color Nicole (Yellow) 11/11/17 23:09 Urine Turbidity Cloudy (Clear) 11/11/17 23:09 Urine pH 5.0 (5.0-7.0) 11/11/17 23:09 Ur Specific [place] 1.025 (1.003-1.030) 11/11/17 23:09 Urine Protein 100 mg/dl mg/dL (Negative) 11/11/17 23:09 Urine Glucose (UA) 50 mg/dL (Negative) 11/11/17 23:09 Urine Ketones Neg mg/dL (Negative) 11/11/17 23:09 Urine Blood Neg (Negative) 11/11/17 23:09 Urine Nitrite Neg (Negative) 11/11/17 23:09 Urine Bilirubin Neg (Negative) 11/11/17 23:09 Urine Urobilinogen 4.0 mg/dL (<2.0) 11/11/17 23:09 Ur Leukocyte Esterase Neg (Negative) 11/11/17 23:09 Urine WBC (Auto) 5.0 /HPF (0.0-6.0) 11/11/17 23:09 Urine RBC (Auto) 4.0 /HPF (0.0-6.0) 11/11/17 23:09 Urine Bacteria (Auto) 3+ /HPF (Negative) 11/11/17 23:09 Amorphous Crystals 3+ 11/11/17 23:09 Hyaline Casts 76 /LPF 11/11/17 23:09 Urine Mucus 2+ /HPF 11/11/17 23:09 Hepatitis A IgM Ab Non-reactive (NonReactive) 11/22/17 19:45 Hep Bs Antigen Non-reactive (Negative) 11/22/17 19:45 Hep B Core IgM Ab Non-reactive (NonReactive) 11/22/17 19:45 Hepatitis C Antibody Reactive (NonReactive) A 11/22/17 19:45
[2017-11-23] MEDS: SODIUM BICARBONATE 150 MEQ in D5W 1,000 ML IV SCH (14:33)
--- NOTE | 2017-11-23 16:32 | Progress Note ---
Assessment and Plan - Patient Problems (1) Ventilator dependence Current Visit: Yes Status: Acute Plan to address problem: ween as tolerated (2) Acute respiratory failure with hypoxemia Current Visit: Yes Status: Acute Plan to address problem: Titrate O2 to keep sat.+92% (3) Respiratory failure Current Visit: No Status: Acute Plan to address problem: ween as tolerated (4) Tracheostomy status Current Visit: Yes Status: Acute Plan to address problem: local trache care rache change POD #5-7 Subjective Date of service: 11/23/17 Principal diagnosis: coffee-ground emesis Interval history: POD #3 Pt. resting comfortably, sedated.getting dialysis Objective - Constitutional Vitals: Vital Signs - 12hr 11/23/17 11/23/17 11/23/17 04:31 04:45 04:55 Temperature Pulse Rate 100 H 109 H 97 H Pulse Rate [ Right From Monitor] Respiratory 17 21 Rate Respiratory Rate [Joint] Respiratory Rate [Upper Back] Blood Pressure 109/62 113/54 113/54 O2 Sat by Pulse 31 L 99 99 Oximetry O2 Sat by Pulse Oximetry [ Assessment] O2 Sat by Pulse Oximetry [ Bilateral Throughout] 11/23/17 11/23/17 11/23/17 05:00 05:15 05:30 Temperature Pulse Rate 93 H 91 H 90 Pulse Rate [ Right From Monitor] Respiratory 25 H 25 H 25 H Rate Respiratory Rate [Joint] Respiratory Rate [Upper Back] Blood Pressure 103/45 105/46 105/45 O2 Sat by Pulse 100 98 100 Oximetry O2 Sat by Pulse Oximetry [ Assessment] O2 Sat by Pulse Oximetry [ Bilateral Throughout] 11/23/17 11/23/17 11/23/17 05:45 06:00 06:15 Temperature Pulse Rate 99 H 91 H 92 H Pulse Rate [ Right From Monitor] Respiratory 25 H 18 26 H Rate Respiratory Rate [Joint] Respiratory Rate [Upper Back] Blood Pressure 116/56 102/48 110/51 O2 Sat by Pulse 100 100 100 Oximetry O2 Sat by Pulse Oximetry [ Assessment] O2 Sat by Pulse Oximetry [ Bilateral Throughout] 11/23/17 11/23/17 11/23/17 06:30 06:45 07:00 Temperature Pulse Rate 90 85 100 H Pulse Rate [ Right From Monitor] Respiratory 25 H 23 23 Rate Respiratory Rate [Joint] Respiratory Rate [Upper Back] Blood Pressure 111/48 108/48 95/56 O2 Sat by Pulse 100 99 100 Oximetry O2 Sat by Pulse Oximetry [ Assessment] O2 Sat by Pulse Oximetry [ Bilateral Throughout] 11/23/17 11/23/17 11/23/17 07:15 07:30 07:45 Temperature Pulse Rate 89 90 104 H Pulse Rate [ Right From Monitor] Respiratory 23 24 25 H Rate Respiratory Rate [Joint] Respiratory Rate [Upper Back] Blood Pressure 99/51 115/50 131/62 O2 Sat by Pulse 100 100 100 Oximetry O2 Sat by Pulse Oximetry [ Assessment] O2 Sat by Pulse Oximetry [ Bilateral Throughout] 11/23/17 11/23/17 11/23/17 08:00 08:15 08:30 Temperature 98.9 F Pulse Rate 94 H 100 H 97 H Pulse Rate [ 92 H Right From Monitor] Respiratory 24 27 H 19 Rate Respiratory Rate [Joint] Respiratory Rate [Upper Back] Blood Pressure 110/54 131/62 124/63 O2 Sat by Pulse 100 100 100 Oximetry O2 Sat by Pulse 100 Oximetry [ Assessment] O2 Sat by Pulse Oximetry [ Bilateral Throughout] 11/23/17 11/23/17 11/23/17 08:45 09:00 09:15 Temperature Pulse Rate 99 H 96 H 89 Pulse Rate [ Right From Monitor] Respiratory 22 19 21 Rate Respiratory Rate [Joint] Respiratory Rate [Upper Back] Blood Pressure 124/63 110/54 110/54 O2 Sat by Pulse 100 100 100 Oximetry O2 Sat by Pulse Oximetry [ Assessment] O2 Sat by Pulse Oximetry [ Bilateral Throughout] 11/23/17 11/23/17 11/23/17 09:30 09:45 10:00 Temperature Pulse Rate 97 H 88 87 Pulse Rate [ Right From Monitor] Respiratory 22 25 H 27 H Rate Respiratory 30 H Rate [Joint] Respiratory 30 H Rate [Upper Back] Blood Pressure 105/54 105/54 113/58 O2 Sat by Pulse 100 100 100 Oximetry O2 Sat by Pulse Oximetry [ Assessment] O2 Sat by Pulse Oximetry [ Bilateral Throughout] 11/23/17 11/23/17 11/23/17 10:15 10:30 11:00 Temperature Pulse Rate 89 87 95 H Pulse Rate [ Right From Monitor] Respiratory 23 22 23 Rate Respiratory Rate [Joint] Respiratory Rate [Upper Back] Blood Pressure 113/58 110/62 115/57 O2 Sat by Pulse 100 100 99 Oximetry O2 Sat by Pulse Oximetry [ Assessment] O2 Sat by Pulse Oximetry [ Bilateral Throughout] 11/23/17 11/23/17 11/23/17 11:30 12:00 12:30 Temperature 97.8 F Pulse Rate 95 H 93 H 89 Pulse Rate [ 104 H Right From Monitor] Respiratory 23 21 22 Rate Respiratory Rate [Joint] Respiratory Rate [Upper Back] Blood Pressure 118/62 120/62 120/62 O2 Sat by Pulse 100 100 100 Oximetry O2 Sat by Pulse Oximetry [ Assessment] O2 Sat by Pulse Oximetry [ Bilateral Throughout] 11/23/17 11/23/17 11/23/17 13:00 13:30 14:00 Temperature Pulse Rate 100 H 94 H 101 H Pulse Rate [ Right From Monitor] Respiratory 20 21 20 Rate Respiratory Rate [Joint] Respiratory Rate [Upper Back] Blood Pressure 120/64 123/52 133/61 O2 Sat by Pulse 100 100 100 Oximetry O2 Sat by Pulse Oximetry [ Assessment] O2 Sat by Pulse Oximetry [ Bilateral Throughout] 11/23/17 11/23/17 11/23/17 14:30 15:00 15:15 Temperature 97.9 F Pulse Rate 99 H 90 101 H Pulse Rate [ Right From Monitor] Respiratory 23 22 Rate Respiratory Rate [Joint] Respiratory Rate [Upper Back] Blood Pressure 125/51 117/54 112/60 O2 Sat by Pulse 100 Oximetry O2 Sat by Pulse Oximetry [ Assessment] O2 Sat by Pulse 100 Oximetry [ Bilateral Throughout] 11/23/17 11/23/17 11/23/17 15:30 15:45 16:00 Temperature Pulse Rate 95 H 88 104 H Pulse Rate [ Right From Monitor] Respiratory Rate Respiratory Rate [Joint] Respiratory Rate [Upper Back] Blood Pressure 121/49 98/45 100/53 O2 Sat by Pulse Oximetry O2 Sat by Pulse Oximetry [ Assessment] O2 Sat by Pulse Oximetry [ Bilateral Throughout] 11/23/17 16:15 Temperature Pulse Rate 105 H Pulse Rate [ Right From Monitor] Respiratory Rate Respiratory Rate [Joint] Respiratory Rate [Upper Back] Blood Pressure 107/61 O2 Sat by Pulse Oximetry O2 Sat by Pulse Oximetry [ Assessment] O2 Sat by Pulse Oximetry [ Bilateral Throughout] General appearance: Present: no acute distress, obese - EENT Eyes: PERRL ENT: clear oral mucosa, poor dentition Ears: negative: other (pinna w/o breakdown) - Neck Neck: supple, other (sutures intact, surgicel drainage decreased) - Respiratory Respiratory effort: normal, other (on the vent.) - Breasts Breasts: deferred - Cardiovascular Rhythm: regular Heart Sounds: Present: S1 & S2 Extremities: no ischemia Extremity abnormal: edema - Gastrointestinal General gastrointestinal: Present: soft, non-tender Rectal Exam: deferred - Genitourinary Male genitourinary: deferred - Integumentary Integumentary: clear, warm - Musculoskeletal Musculoskeletal: other (sedated) - Neurologic Neurologic: other (sedated) - Psychiatric Psychiatric: other (sedated) - Labs CBC & Chem 7: 11/22/17 07:25 11/23/17 07:05 Labs: Abnormal lab results 11/22/17 11/23/17 11/23/17 Range/Units 19:45 01:28 04:56 POC ABG pH 7.505 H (7.35-7.45) POC ABG pCO2 26.3 L (35-45) Carbon Dioxide (22-30) mmol/L BUN (9-20) mg/dL Creatinine (0.8-1.5) mg/dL Glucose (75-100) mg/dL POC Glucose 165 H (70-105) Calcium (8.4-10.2) mg/dL Hepatitis C Antibody Reactive A (NonReactive) 11/23/17 11/23/17 Range/Units 07:05 12:32 POC ABG pH (7.35-7.45) POC ABG pCO2 (35-45) Carbon Dioxide 18 L (22-30) mmol/L BUN 61 H (9-20) mg/dL Creatinine 4.2 H (0.8-1.5) mg/dL Glucose 153 H (75-100) mg/dL POC Glucose 138 H (70-105) Calcium 7.5 L (8.4-10.2) mg/dL Hepatitis C Antibody (NonReactive)
--- NOTE | 2017-11-23 17:02 | Progress Note ---
Assessment and Plan Imp: 1. CVA 2. Hemiparesis 3. Aspiration pneumonitis related to above 4. Sepsis 5. DARYA 6. s/p Trach/PEG Rec: 1. Stop IVFs since he is now on HD; needs volume removal given anasarca 2. Cont. Zosyn; consider calling ID back given recent episode of hypotension/ sepsis 3. Resume TFs MARCELA 4. SCDs; GI PPx 5. SBT and SAT daily; trach will need to be permanent for secretion clearance 6. Monitor off pressors 7. Long-term prognosis poor; no family present CCt 31 minutes Subjective Date of service: 11/23/17 Principal diagnosis: coffee-ground emesis Interval history: No events. On HD. Sedated. Off pressors. Active Medications Acetaminophen (Tylenol) 650 mg [place] Q4H PRN PRN Reason: Pain MILD(1-3)/Fever >100.5/CABELLO Last Admin: 11/22/17 09:07 Dose: 650 mg Lipase/Protease/Amylase (Pancreaze Dr 10,500 Unit) 1 each FEEDTUBE PRN PRN PRN Reason: For Clogged Feeding Tube Fentanyl Citrate (Fentanyl Drip Premix) 2,000 mcg in 100 mls @ 3.969 mls/hr IV TITR [facility]; Protocol Last Titration: 11/12/17 04:07 Dose: 5 mcg/kg/hr, 19.845 mls/hr Propofol (Diprivan 10 Mg/Ml) 1,000 mg in 100 mls @ 2.381 mls/hr IV TITR [facility]; Protocol Last Titration: 11/17/17 19:32 Dose: 10 mcg/kg/min, 4.763 mls/hr Sodium Chloride (Nacl 0.9% 1000 Ml) 1,000 mls @ 100 mls/hr IV DIRECT [facility] Last Admin: 11/21/17 07:27 Dose: 100 mls/hr Sodium Bicarbonate 150 meq/ (Dextrose) 1,150 mls @ 75 mls/hr IV DIRECT [facility] Last Admin: 11/23/17 14:33 Dose: 75 mls/hr Norepinephrine 8 mg/ Sodium (Chloride) 250 mls @ 3.75 mls/hr IV TITR [facility]; Protocol Last Titration: 11/23/17 04:00 Dose: 0 mcg/min, 0 mls/hr Phenylephrine HCl 100 mg/ (Sodium Chloride) 100 mls @ 3 mls/hr IV T[facility]R [facility]; Protocol Last Titration: 11/22/17 00:10 Dose: 0 mcg/min, 0 mls/hr Piperacillin Sod/Tazobactam Sod (Zosyn/Ns 2.25 Gm/50ml) 2.25 gm in 50 mls @ 100 mls/hr IV Q8HR [facility]; Protocol Stop: 11/28/17 23:59 Last Admin: 11/23/17 14:34 Dose: 100 mls/hr Sodium Chloride (Nacl 0.9%) 100 mls @ 999 mls/hr IV TIM PRN PRN Reason: Hypotension Sodium Chloride (Nacl 0.9%) 100 mls @ 999 mls/hr IV TIM PRN PRN Reason: Hypotension during HD Sodium Chloride (Nacl 0.9%) 100 mls @ 999 mls/hr IV TIM PRN PRN Reason: Hypotension during HD Ondansetron HCl (Zofran) 4 mg IV Q8H PRN PRN Reason: Nausea And Vomiting Pantoprazole (Protonix) 40 mg FEEDTUBE BID [facility] Last Admin: 11/23/17 10:36 Dose: 40 mg Simple Syrup (Simple Syrup) 15 ml FEEDTUBE PRN PRN PRN Reason: Hypoglycemia Last Admin: 11/21/17 11:26 Dose: 15 ml Simple Syrup (Simple Syrup) 30 ml FEEDTUBE PRN PRN PRN Reason: Hypoglycemia Sodium Bicarbonate (Sodium Bicarbonate) 325 mg FEEDTUBE PRN PRN PRN Reason: For Clogged Feeding Tube Sodium Chloride (Sodium Chloride Flush Syringe 10 Ml) 10 ml IV BID [facility] Last Admin: 11/23/17 10:42 Dose: 10 ml Sodium Chloride (Sodium Chloride Flush Syringe 10 Ml) 10 ml IV PRN PRN PRN Reason: LINE FLUSH Objective Vital Signs - 12hr 11/23/17 11/23/17 11/23/17 05:00 05:15 05:30 Temperature Pulse Rate 93 H 91 H 90 Pulse Rate [ Right From Monitor] Respiratory 25 H 25 H 25 H Rate Respiratory Rate [Joint] Respiratory Rate [Upper Back] Blood Pressure 103/45 105/46 105/45 O2 Sat by Pulse 100 98 100 Oximetry O2 Sat by Pulse Oximetry [ Assessment] O2 Sat by Pulse Oximetry [ Bilateral Throughout] 11/23/17 11/23/1718 05:45 06:00 06:15 Temperature Pulse Rate 99 H 91 H 92 H Pulse Rate [ Right From Monitor] Respiratory 25 H 18 26 H Rate Respiratory Rate [Joint] Respiratory Rate [Upper Back] Blood Pressure 116/56 102/48 110/51 O2 Sat by Pulse 100 100 100 Oximetry O2 Sat by Pulse Oximetry [ Assessment] O2 Sat by Pulse Oximetry [ Bilateral Throughout] 11/23/17 11/23/17 11/23/17 06:30 06:45 07:00 Temperature Pulse Rate 90 85 100 H Pulse Rate [ Right From Monitor] Respiratory 25 H 23 23 Rate Respiratory Rate [Joint] Respiratory Rate [Upper Back] Blood Pressure 111/48 108/48 95/56 O2 Sat by Pulse 100 99 100 Oximetry O2 Sat by Pulse Oximetry [ Assessment] O2 Sat by Pulse Oximetry [ Bilateral Throughout] 11/23/17 11/23/17 11/23/17 07:15 07:30 07:45 Temperature Pulse Rate 89 90 104 H Pulse Rate [ Right From Monitor] Respiratory 23 24 25 H Rate Respiratory Rate [Joint] Respiratory Rate [Upper Back] Blood Pressure 99/51 115/50 131/62 O2 Sat by Pulse 100 100 100 Oximetry O2 Sat by Pulse Oximetry [ Assessment] O2 Sat by Pulse Oximetry [ Bilateral Throughout] 11/23/17 11/23/17 11/23/17 08:00 08:15 08:30 Temperature 98.9 F Pulse Rate 94 H 100 H 97 H Pulse Rate [ 92 H Right From Monitor] Respiratory 24 27 H 19 Rate Respiratory Rate [Joint] Respiratory Rate [Upper Back] Blood Pressure 110/54 131/62 124/63 O2 Sat by Pulse 100 100 100 Oximetry O2 Sat by Pulse 100 Oximetry [ Assessment] O2 Sat by Pulse Oximetry [ Bilateral Throughout] 11/23/17 11/23/17 11/23/17 08:45 09:00 09:15 Temperature Pulse Rate 99 H 96 H 89 Pulse Rate [ Right From Monitor] Respiratory 22 19 21 Rate Respiratory Rate [Joint] Respiratory Rate [Upper Back] Blood Pressure 124/63 110/54 110/54 O2 Sat by Pulse 100 100 100 Oximetry O2 Sat by Pulse Oximetry [ Assessment] O2 Sat by Pulse Oximetry [ Bilateral Throughout] 11/23/17 11/23/17 11/23/17 09:30 09:45 10:00 Temperature Pulse Rate 97 H 88 87 Pulse Rate [ Right From Monitor] Respiratory 22 25 H 27 H Rate Respiratory 30 H Rate [Joint] Respiratory 30 H Rate [Upper Back] Blood Pressure 105/54 105/54 113/58 O2 Sat by Pulse 100 100 100 Oximetry O2 Sat by Pulse Oximetry [ Assessment] O2 Sat by Pulse Oximetry [ Bilateral Throughout] 11/23/17 11/23/17 11/23/17 10:15 10:30 11:00 Temperature Pulse Rate 89 87 95 H Pulse Rate [ Right From Monitor] Respiratory 23 22 23 Rate Respiratory Rate [Joint] Respiratory Rate [Upper Back] Blood Pressure 113/58 110/62 115/57 O2 Sat by Pulse 100 100 99 Oximetry O2 Sat by Pulse Oximetry [ Assessment] O2 Sat by Pulse Oximetry [ Bilateral Throughout] 11/23/17 11/23/17 11/23/17 11:30 12:00 12:30 Temperature 97.8 F Pulse Rate 95 H 93 H 89 Pulse Rate [ 104 H Right From Monitor] Respiratory 23 21 22 Rate Respiratory Rate [Joint] Respiratory Rate [Upper Back] Blood Pressure 118/62 120/62 120/62 O2 Sat by Pulse 100 100 100 Oximetry O2 Sat by Pulse Oximetry [ Assessment] O2 Sat by Pulse Oximetry [ Bilateral Throughout] 11/23/17 11/23/17 11/23/17 13:00 13:30 14:00 Temperature Pulse Rate 100 H 94 H 101 H Pulse Rate [ Right From Monitor] Respiratory 20 21 20 Rate Respiratory Rate [Joint] Respiratory Rate [Upper Back] Blood Pressure 120/64 123/52 133/61 O2 Sat by Pulse 100 100 100 Oximetry O2 Sat by Pulse Oximetry [ Assessment] O2 Sat by Pulse Oximetry [ Bilateral Throughout] 11/23/17 11/23/17 11/23/17 14:30 15:00 15:15 Temperature 97.9 F Pulse Rate 99 H 90 101 H Pulse Rate [ Right From Monitor] Respiratory 23 22 Rate Respiratory Rate [Joint] Respiratory Rate [Upper Back] Blood Pressure 125/51 117/54 112/60 O2 Sat by Pulse 100 Oximetry O2 Sat by Pulse Oximetry [ Assessment] O2 Sat by Pulse 100 Oximetry [ Bilateral Throughout] 11/23/17 11/23/17 11/23/17 15:30 15:45 16:00 Temperature 97.7 F Pulse Rate 95 H 88 104 H Pulse Rate [ Right From Monitor] Respiratory Rate Respiratory Rate [Joint] Respiratory Rate [Upper Back] Blood Pressure 121/49 98/45 100/53 O2 Sat by Pulse Oximetry O2 Sat by Pulse Oximetry [ Assessment] O2 Sat by Pulse Oximetry [ Bilateral Throughout] 11/23/17 11/23/17 11/23/17 16:15 16:30 16:45 Temperature Pulse Rate 105 H 116 H 101 H Pulse Rate [ Right From Monitor] Respiratory Rate Respiratory Rate [Joint] Respiratory Rate [Upper Back] Blood Pressure 107/61 118/71 104/52 O2 Sat by Pulse Oximetry O2 Sat by Pulse Oximetry [ Assessment] O2 Sat by Pulse Oximetry [ Bilateral Throughout] Constitutional: other (intubated, critically ill) Eyes: non-icteric ENT: oropharynx moist Neck: supple Effort: normal Ascultation: Bilateral: other (coarse BS bilaterally) Cardiovascular: regular rate and rhythm (no mrg) Gastrointestinal: normoactive bowel sounds, soft, non-tender, non-distended Integumentary: normal Extremities: no cyanosis, anasarca Neurologic: other (L hemiparesis, sedated) Psychiatric: other (unable to assess) CBC and BMP: 11/22/17 07:25 11/23/17 07:05 ABG, PT/INR, D-dimer: ABG POC ABG pH 7.505 (7.35-7.45) H 11/23/17 04:56 POC ABG pCO2 26.3 (35-45) L 11/23/17 04:56 POC ABG pO2 100 (80-105) 11/23/17 04:56 POC ABG HCO3 20.8 11/23/17 04:56 POC ABG Total CO2 22 11/23/17 04:56 POC ABG O2 Sat 98 11/23/17 04:56 PT/INR, D-dimer PT 16.7 Sec. (12.2-14.9) H 11/18/17 04:34 INR 1.30 (0.87-1.13) H 11/18/17 04:34 Abnormal lab findings: Abnormal Labs 11/11/17 11/11/17 11/11/17 23:18 23:20 23:20 WBC RBC Hgb 10.4 L Hct 32.6 L D MCV MCH 27 L MCHC RDW 17.4 H Plt Count 105 L Lymph % (Auto) [place] % (Auto) Lymph # [place] # Seg Neutrophils % Seg Neuts % (Manual) Lymphocytes % (Manual) 8.0 L Monocytes % (Manual) Nucleated RBC % 1.0 H Seg Neutrophils # Seg Neutrophils # Man Lymphocytes # (Manual) 0.7 L Monocytes # (Manual) PT INR POC ABG pH 7.550 H POC ABG pCO2 31.6 L POC ABG pO2 Sodium 146 H Potassium Chloride Carbon Dioxide BUN 26 H Creatinine 1.7 H D Glucose 133 H POC Glucose Lactic Acid Calcium Magnesium Troponin T 0.117 H* C-Reactive Protein Albumin 2.5 L LDL Cholesterol Direct 42 L HDL Cholesterol 24 L Hepatitis C Antibody 11/11/17 11/12/17 11/12/17 23:20 00:23 00:23 WBC RBC Hgb Hct MCV MCH MCHC RDW Plt Count Lymph % (Auto) [place] % (Auto) Lymph # [place] # Seg Neutrophils % Seg Neuts % (Manual) Lymphocytes % (Manual) Monocytes % (Manual) Nucleated RBC % Seg Neutrophils # Seg Neutrophils # Man Lymphocytes # (Manual) Monocytes # (Manual) PT 16.7 H INR 1.28 H POC ABG pH POC ABG pCO2 POC ABG pO2 Sodium Potassium Chloride Carbon Dioxide BUN Creatinine Glucose POC Glucose Lactic Acid 3.20 H* Calcium Magnesium Troponin T C-Reactive Protein 25.70 H Albumin LDL Cholesterol Direct HDL Cholesterol Hepatitis C Antibody 11/12/17 11/12/17 11/12/17 00:46 01:27 01:27 WBC RBC Hgb Hct MCV MCH MCHC RDW Plt Count Lymph % (Auto) [place] % (Auto) Lymph # [place] # Seg Neutrophils % Seg Neuts % (Manual) Lymphocytes % (Manual) Monocytes % (Manual) Nucleated RBC % Seg Neutrophils # Seg Neutrophils # Man Lymphocytes # (Manual) Monocytes # (Manual) PT INR POC ABG pH 7.495 H POC ABG pCO2 32.0 L POC ABG pO2 64 L Sodium Potassium Chloride Carbon Dioxide BUN Creatinine Glucose POC Glucose Lactic Acid 3.70 H* Calcium Magnesium Troponin T 0.096 H C-Reactive Protein Albumin LDL Cholesterol Direct HDL Cholesterol Hepatitis C Antibody 11/12/17 11/12/17 11/12/17 03:21 04:50 06:27 WBC RBC Hgb Hct MCV MCH MCHC RDW Plt Count Lymph % (Auto) [place] % (Auto) Lymph # [place] # Seg Neutrophils % Seg Neuts % (Manual) Lymphocytes % (Manual) Monocytes % (Manual) Nucleated RBC % Seg Neutrophils # Seg Neutrophils # Man Lymphocytes # (Manual) Monocytes # (Manual) PT INR POC ABG pH POC ABG pCO2 POC ABG pO2 109 H Sodium Potassium Chloride Carbon Dioxide BUN Creatinine Glucose POC Glucose Lactic Acid 3.80 H* 2.20 H* Calcium Magnesium Troponin T C-Reactive Protein Albumin LDL Cholesterol Direct HDL Cholesterol Hepatitis C Antibody 11/12/17 11/12/17 11/12/17 09:24 09:24 09:24 WBC RBC Hgb 10.4 L Hct 33.4 L MCV MCH MCHC RDW Plt Count Lymph % (Auto) [place] % (Auto) Lymph # [place] # Seg Neutrophils % Seg Neuts % (Manual) Lymphocytes % (Manual) Monocytes % (Manual) Nucleated RBC % Seg Neutrophils # Seg Neutrophils # Man Lymphocytes # (Manual) Monocytes # (Manual) PT INR POC ABG pH POC ABG pCO2 POC ABG pO2 Sodium Potassium Chloride Carbon Dioxide BUN Creatinine Glucose POC Glucose Lactic Acid 2.90 H* Calcium Magnesium Troponin T 0.091 H C-Reactive Protein Albumin LDL Cholesterol Direct HDL Cholesterol Hepatitis C Antibody 11/12/17 11/12/17 11/12/17 12:56 20:03 Unknown WBC RBC Hgb Hct MCV MCH MCHC RDW Plt Count Lymph % (Auto) [place] % (Auto) Lymph # [place] # Seg Neutrophils % Seg Neuts % (Manual) Lymphocytes % (Manual) Monocytes % (Manual) Nucleated RBC % Seg Neutrophils # Seg Neutrophils # Man Lymphocytes # (Manual) Monocytes # (Manual) PT INR POC ABG pH POC ABG pCO2 POC ABG pO2 Sodium Potassium Chloride Carbon Dioxide BUN Creatinine Glucose POC Glucose Lactic Acid 3.60 H* Calcium Magnesium Troponin T 0.102 H* 0.156 H* D C-Reactive Protein Albumin LDL Cholesterol Direct HDL Cholesterol Hepatitis C Antibody 11/12/17 11/13/17 11/13/17 Unknown 04:50 04:50 WBC 12.2 H RBC 3.51 L Hgb 9.3 L Hct 30.1 L MCV MCH 26 L MCHC 31 L RDW 18.0 H Plt Count 128 L Lymph % (Auto) 8.6 L [place] % (Auto) 11.1 H Lymph # 1.1 L [place] # 1.4 H Seg Neutrophils % 80.1 H Seg Neuts % (Manual) Lymphocytes % (Manual) Monocytes % (Manual) Nucleated RBC % Seg Neutrophils # 9.8 H Seg Neutrophils # Man Lymphocytes # (Manual) Monocytes # (Manual) PT INR POC ABG pH POC ABG pCO2 POC ABG pO2 Sodium 149 H Potassium 5.1 H Chloride 114.4 H Carbon Dioxide 18 L BUN 52 H Creatinine 3.3 H D Glucose 129 H POC Glucose Lactic Acid Calcium 7.9 L Magnesium Troponin T 0.098 H C-Reactive Protein Albumin LDL Cholesterol Direct HDL Cholesterol Hepatitis C Antibody 11/13/17 11/13/17 11/14/17 04:51 09:34 04:21 WBC RBC Hgb Hct MCV MCH MCHC RDW Plt Count Lymph % (Auto) [place] % (Auto) Lymph # [place] # Seg Neutrophils % Seg Neuts % (Manual) Lymphocytes % (Manual) Monocytes % (Manual) Nucleated RBC % Seg Neutrophils # Seg Neutrophils # Man Lymphocytes # (Manual) Monocytes # (Manual) PT INR POC ABG pH POC ABG pCO2 30.1 L 29.8 L POC ABG pO2 135 H Sodium Potassium Chloride Carbon Dioxide BUN Creatinine Glucose POC Glucose Lactic Acid 2.10 H* Calcium Magnesium Troponin T C-Reactive Protein Albumin LDL Cholesterol Direct HDL Cholesterol Hepatitis C Antibody 11/15/17 11/15/17 11/16/17 04:52 15:50 05:17 WBC RBC Hgb Hct MCV MCH MCHC RDW Plt Count Lymph % (Auto) [place] % (Auto) Lymph # [place] # Seg Neutrophils % Seg Neuts % (Manual) Lymphocytes % (Manual) Monocytes % (Manual) Nucleated RBC % Seg Neutrophils # Seg Neutrophils # Man Lymphocytes # (Manual) Monocytes # (Manual) PT INR POC ABG pH POC ABG pCO2 29.5 L 31.5 L POC ABG pO2 115 H 122 H Sodium 154 H Potassium Chloride 117.9 H Carbon Dioxide 19 L BUN 87 H Creatinine 4.1 H Glucose POC Glucose Lactic Acid Calcium 8.1 L Magnesium Troponin T C-Reactive Protein Albumin LDL Cholesterol Direct HDL Cholesterol Hepatitis C Antibody 11/16/17 11/17/17 11/17/17 16:37 04:07 10:00 WBC 14.7 H RBC 3.23 L Hgb 8.3 L Hct 28.1 L MCV MCH 26 L MCHC 30 L RDW 18.8 H Plt Count Lymph % (Auto) [place] % (Auto) Lymph # [place] # Seg Neutrophils % Seg Neuts % (Manual) 75 H Lymphocytes % (Manual) 8.0 L Monocytes % (Manual) Nucleated RBC % 1.0 H Seg Neutrophils # Seg Neutrophils # Man 11.0 H Lymphocytes # (Manual) Monocytes # (Manual) 0.9 H PT INR POC ABG pH POC ABG pCO2 POC ABG pO2 Sodium 153 H 155 H Potassium Chloride 117.3 H 119.4 H Carbon Dioxide 19 L 20 L BUN 90 H 89 H Creatinine 3.9 H 3.6 H Glucose 111 H 115 H POC Glucose Lactic Acid Calcium 8.1 L 8.0 L Magnesium Troponin T C-Reactive Protein Albumin LDL Cholesterol Direct HDL Cholesterol Hepatitis C Antibody 11/18/17 11/18/17 11/18/17 04:34 04:34 04:34 WBC 15.5 H RBC 3.13 L Hgb 8.1 L Hct 26.3 L MCV MCH 26 L MCHC 31 L RDW 18.6 H Plt Count Lymph % (Auto) [place] % (Auto) Lymph # [place] # Seg Neutrophils % Seg Neuts % (Manual) 81.0 H Lymphocytes % (Manual) 7.0 L Monocytes % (Manual) Nucleated RBC % 1.0 H Seg Neutrophils # Seg Neutrophils # Man 12.6 H Lymphocytes # (Manual) 1.1 L Monocytes # (Manual) PT 16.7 H INR 1.30 H POC ABG pH POC ABG pCO2 POC ABG pO2 Sodium 155 H Potassium 3.2 L Chloride 121.0 H Carbon Dioxide 20 L BUN 74 H Creatinine 2.9 H Glucose 126 H POC Glucose Lactic Acid Calcium 7.9 L Magnesium Troponin T C-Reactive Protein Albumin LDL Cholesterol Direct HDL Cholesterol Hepatitis C Antibody 11/19/17 11/19/17 11/20/17 04:44 04:44 00:38 WBC 19.0 H 22.2 H RBC 3.20 L 3.17 L Hgb 8.4 L 7.9 L Hct 27.9 L 26.4 L MCV 83 L MCH 26 L 25 L MCHC 30 L 30 L RDW 19.1 H 18.9 H Plt Count Lymph % (Auto) [place] % (Auto) Lymph # [place] # Seg Neutrophils % Seg Neuts % (Manual) 83.0 H Lymphocytes % (Manual) 3.0 L Monocytes % (Manual) 9.0 H Nucleated RBC % Seg Neutrophils # Seg Neutrophils # Man 18.4 H Lymphocytes # (Manual) 0.7 L Monocytes # (Manual) 2.0 H PT INR POC ABG pH POC ABG pCO2 POC ABG pO2 Sodium 152 H Potassium Chloride 117.1 H Carbon Dioxide 17 L BUN 66 H Creatinine 2.8 H Glucose 119 H POC Glucose Lactic Acid Calcium 7.8 L Magnesium 2.70 H Troponin T C-Reactive Protein Albumin LDL Cholesterol Direct HDL Cholesterol Hepatitis C Antibody 11/20/17 11/20/17 11/20/17 03:29 04:48 13:38 WBC RBC Hgb Hct MCV MCH MCHC RDW Plt Count Lymph % (Auto) [place] % (Auto) Lymph # [place] # Seg Neutrophils % Seg Neuts % (Manual) Lymphocytes % (Manual) Monocytes % (Manual) Nucleated RBC % Seg Neutrophils # Seg Neutrophils # Man Lymphocytes # (Manual) Monocytes # (Manual) PT INR POC ABG pH POC ABG pCO2 29.4 L POC ABG pO2 Sodium 148 H Potassium 3.4 L Chloride 113.7 H Carbon Dioxide 18 L BUN 59 H Creatinine 2.7 H Glucose 113 H POC Glucose 128 H Lactic Acid Calcium 7.8 L Magnesium Troponin T C-Reactive Protein Albumin LDL Cholesterol Direct HDL Cholesterol Hepatitis C Antibody 11/20/17 11/20/17 11/21/17 17:38 23:40 00:13 WBC RBC Hgb 8.4 L Hct 28.0 L MCV MCH MCHC RDW Plt Count Lymph % (Auto) [place] % (Auto) Lymph # [place] # Seg Neutrophils % Seg Neuts % (Manual) Lymphocytes % (Manual) Monocytes % (Manual) Nucleated RBC % Seg Neutrophils # Seg Neutrophils # Man Lymphocytes # (Manual) Monocytes # (Manual) PT INR POC ABG pH POC ABG pCO2 POC ABG pO2 Sodium Potassium Chloride Carbon Dioxide BUN Creatinine Glucose POC Glucose 115 H 145 H Lactic Acid Calcium Magnesium Troponin T C-Reactive Protein Albumin LDL Cholesterol Direct HDL Cholesterol Hepatitis C Antibody 11/21/17 11/21/17 11/21/17 04:30 04:30 04:58 WBC 21.0 H RBC Hgb 9.6 L Hct 32.7 L MCV MCH 25 L MCHC 29 L RDW 19.7 H Plt Count 746 H Lymph % (Auto) [place] % (Auto) Lymph # [place] # Seg Neutrophils % Seg Neuts % (Manual) Lymphocytes % (Manual) Monocytes % (Manual) Nucleated RBC % Seg Neutrophils # Seg Neutrophils # Man Lymphocytes # (Manual) Monocytes # (Manual) PT INR POC ABG pH POC ABG pCO2 POC ABG pO2 Sodium Potassium Chloride 109.4 H Carbon Dioxide 14 L BUN 59 H Creatinine 3.0 H Glucose 137 H POC Glucose 132 H Lactic Acid Calcium 7.6 L Magnesium Troponin T C-Reactive Protein Albumin LDL Cholesterol Direct HDL Cholesterol Hepatitis C Antibody 11/21/17 11/21/17 11/21/17 06:30 13:43 14:17 WBC 38.2 H RBC Hgb 9.0 L Hct 32.3 L MCV MCH 25 L MCHC 28 L RDW 20.0 H Plt Count 766 H Lymph % (Auto) [place] % (Auto) Lymph # [place] # Seg Neutrophils % Seg Neuts % (Manual) 85.0 H Lymphocytes % (Manual) 1.0 L Monocytes % (Manual) Nucleated RBC % 2.0 H Seg Neutrophils # Seg Neutrophils # Man 32.5 H Lymphocytes # (Manual) 0.4 L Monocytes # (Manual) 2.3 H PT INR POC ABG pH POC ABG pCO2 18.6 L POC ABG pO2 121 H Sodium 146 H Potassium Chloride 110.9 H Carbon Dioxide 11 L BUN 62 H Creatinine 4.0 H Glucose 64 L POC Glucose Lactic Acid Calcium 7.6 L Magnesium Troponin T C-Reactive Protein Albumin LDL Cholesterol Direct HDL Cholesterol Hepatitis C Antibody 11/21/17 11/21/17 11/22/17 14:17 19:09 00:05 WBC RBC Hgb Hct MCV MCH MCHC RDW Plt Count Lymph % (Auto) [place] % (Auto) Lymph # [place] # Seg Neutrophils % Seg Neuts % (Manual) Lymphocytes % (Manual) Monocytes % (Manual) Nucleated RBC % Seg Neutrophils # Seg Neutrophils # Man Lymphocytes # (Manual) Monocytes # (Manual) PT INR POC ABG pH POC ABG pCO2 20.0 L POC ABG pO2 Sodium Potassium Chloride Carbon Dioxide BUN Creatinine Glucose POC Glucose 127 H Lactic Acid 7.70 H* Calcium Magnesium Troponin T C-Reactive Protein Albumin LDL Cholesterol Direct HDL Cholesterol Hepatitis C Antibody 11/22/17 11/22/17 11/22/17 03:53 06:00 07:25 WBC RBC Hgb Hct MCV MCH MCHC RDW Plt Count Lymph % (Auto) [place] % (Auto) Lymph # [place] # Seg Neutrophils % Seg Neuts % (Manual) Lymphocytes % (Manual) Monocytes % (Manual) Nucleated RBC % Seg Neutrophils # Seg Neutrophils # Man Lymphocytes # (Manual) Monocytes # (Manual) PT INR POC ABG pH POC ABG pCO2 22.2 L POC ABG pO2 Sodium 147 H Potassium Chloride 111.9 H Carbon Dioxide 16 L BUN 72 H Creatinine 5.1 H Glucose 181 H POC Glucose 180 H Lactic Acid Calcium 7.1 L Magnesium Troponin T C-Reactive Protein Albumin LDL Cholesterol Direct HDL Cholesterol Hepatitis C Antibody 11/22/17 11/22/17 11/22/17 07:25 07:25 12:05 WBC 31.4 H RBC 3.22 L Hgb 8.0 L Hct 26.7 L MCV 83 L MCH 25 L MCHC 30 L RDW 19.4 H Plt Count 602 H Lymph % (Auto) [place] % (Auto) Lymph # [place] # Seg Neutrophils % Seg Neuts % (Manual) Lymphocytes % (Manual) Monocytes % (Manual) Nucleated RBC % Seg Neutrophils # Seg Neutrophils # Man Lymphocytes # (Manual) Monocytes # (Manual) PT INR POC ABG pH POC ABG pCO2 POC ABG pO2 Sodium Potassium Chloride Carbon Dioxide BUN Creatinine Glucose POC Glucose 182 H Lactic Acid 5.00 H* Calcium Magnesium Troponin T C-Reactive Protein Albumin LDL Cholesterol Direct HDL Cholesterol Hepatitis C Antibody 11/22/17 11/23/17 11/23/17 19:45 01:28 04:56 WBC RBC Hgb Hct MCV MCH MCHC RDW Plt Count Lymph % (Auto) [place] % (Auto) Lymph # [place] # Seg Neutrophils % Seg Neuts % (Manual) Lymphocytes % (Manual) Monocytes % (Manual) Nucleated RBC % Seg Neutrophils # Seg Neutrophils # Man Lymphocytes # (Manual) Monocytes # (Manual) PT INR POC ABG pH 7.505 H POC ABG pCO2 26.3 L POC ABG pO2 Sodium Potassium Chloride Carbon Dioxide BUN Creatinine Glucose POC Glucose 165 H Lactic Acid Calcium Magnesium Troponin T C-Reactive Protein Albumin LDL Cholesterol Direct HDL Cholesterol Hepatitis C Antibody Reactive A 11/23/17 11/23/17 07:05 12:32 WBC RBC Hgb Hct MCV MCH MCHC RDW Plt Count Lymph % (Auto) [place] % (Auto) Lymph # [place] # Seg Neutrophils % Seg Neuts % (Manual) Lymphocytes % (Manual) Monocytes % (Manual) Nucleated RBC % Seg Neutrophils # Seg Neutrophils # Man Lymphocytes # (Manual) Monocytes # (Manual) PT INR POC ABG pH POC ABG pCO2 POC ABG pO2 Sodium Potassium Chloride Carbon Dioxide 18 L BUN 61 H Creatinine 4.2 H Glucose 153 H POC Glucose 138 H Lactic Acid Calcium 7.5 L Magnesium Troponin T C-Reactive Protein Albumin LDL Cholesterol Direct HDL Cholesterol Hepatitis C Antibody Chest x-ray: report reviewed, image reviewed
--- NOTE | 2017-11-24 04:08 | XRay Report ---
FINAL REPORT PROCEDURE: XR CHEST 1V AP TECHNIQUE: Chest radiograph anteroposterior view. CPT 64717 HISTORY: Pneumonia COMPARISON: No prior studies are available for comparison. FINDINGS: Heart: Normal. Mediastinum/Vessels: Normal. Lungs/Pleural space: Lungs are expanded there are no infiltrates, effusions or pneumothoraces.. Bony thorax: No acute osseous abnormality. Life support devices: There is a tracheostomy tube. Tip is in the mid trachea. NG tube is in the stomach.. IMPRESSION: Heart size is normal.. Lungs are expanded there are no infiltrates, effusions or pneumothoraces.. There is a tracheostomy tube. Tip is in the mid trachea. NG tube is in the stomach..
[2017-11-24 05:59] LABS: Hematocrit 20.3 % (35.5-45.6); Hemoglobin 6.2 gm/dl (11.8-15.2); Mean Corpuscular HGB Conc 31 % (32-34); Mean Corpuscular Volume 82 fl (84-94); Platelet Count 350 K/mm3 (140-440); Red Blood Count 2.48 M/mm3 (3.65-5.03); Red Cell Distribution Width 18.9 % (13.2-15.2)
[2017-11-24] MEDS: ZOSYN/NS 2.25 GM/50ML 2.25 GM/50 ML BAG IV SCH ×3 (06:00→22:46)
[2017-11-24 06:04] LABS: Mean Corpuscular Hemoglobin 25 pg (28-32)
[2017-11-24 06:37] LABS: Calcium 5.3 mg/dL (8.4-10.2)
[2017-11-24] MEDS: SODIUM BICARBONATE 150 MEQ in D5W 1,000 ML IV SCH (07:49)
[2017-11-24] MEDS ORDERED: MAGNESIUM SULFATE IV ONE (07:52)
[2017-11-24] MEDS ORDERED: MAGNESIUM SULFATE 2GM/50ML 2 GM/50 ML BAG IV ONE ×2 (09:00→13:00)
[2017-11-24] MEDS ORDERED: NACL 0.9% 500 ML 500 ML IV NR (09:00)
--- NOTE | 2017-11-24 09:00 | Progress Note ---
Assessment and Plan Assessment : * Acute kidney injury. Most likely ATN . patient has been initiated on renal replacement therapy on 11/23/17 * Respiratory failure * Metabolic acidosis * Hypokalemia * Severe anemia * Carotid artery disease . s/p carotid endarterectomy * Hypocalcemia Recommendations * Will order for hemodialysis treatment today again .Continue Hemodialysis as tolerated * Use higher K and calcium bath for dialysis * Transfuse PRBC with dialysis * Stop bicarbonate drip due to hypokalemia * May remove easley catheter * Prognosis remains very poor Subjective Date of service: 11/24/17 Principal diagnosis: coffee-ground emesis Interval history: patient remains on the ventilator via trache . On 30% FiO2 . Unresponsive . Off pressors Objective - Vital Signs Vital signs: Vital Signs - 12hr 11/23/17 11/23/17 11/23/17 21:00 21:04 21:21 Temperature Pulse Rate 88 95 H Pulse Rate [ Right From Monitor] Respiratory 20 22 Rate Blood Pressure 101/49 101/49 108/55 O2 Sat by Pulse 100 94 100 Oximetry O2 Sat by Pulse Oximetry [ Assessment] 11/23/17 11/23/17 11/23/17 21:30 22:00 22:30 Temperature Pulse Rate 97 H 87 88 Pulse Rate [ Right From Monitor] Respiratory 19 19 22 Rate Blood Pressure 111/51 98/45 106/50 O2 Sat by Pulse 100 100 100 Oximetry O2 Sat by Pulse Oximetry [ Assessment] 11/23/17 11/23/17 11/23/17 23:00 23:28 23:30 Temperature Pulse Rate 102 H 99 H 97 H Pulse Rate [ Right From Monitor] Respiratory 17 20 Rate Blood Pressure 125/69 110/56 110/56 O2 Sat by Pulse 100 100 100 Oximetry O2 Sat by Pulse Oximetry [ Assessment] 11/24/17 11/24/17 11/24/17 00:00 00:05 00:30 Temperature 98.2 F Pulse Rate 91 H 90 Pulse Rate [ 101 H Right From Monitor] Respiratory 20 17 Rate Blood Pressure 116/55 112/56 O2 Sat by Pulse 100 100 Oximetry O2 Sat by Pulse 100 Oximetry [ Assessment] 11/24/17 11/24/17 11/24/17 01:00 01:31 02:00 Temperature Pulse Rate 90 101 H 83 Pulse Rate [ Right From Monitor] Respiratory 20 20 20 Rate Blood Pressure 104/44 113/59 104/55 O2 Sat by Pulse 100 100 100 Oximetry O2 Sat by Pulse Oximetry [ Assessment] 11/24/17 11/24/17 11/24/17 02:30 03:00 03:30 Temperature Pulse Rate 79 92 H 76 Pulse Rate [ Right From Monitor] Respiratory 20 17 20 Rate Blood Pressure 109/55 124/65 108/50 O2 Sat by Pulse 100 100 100 Oximetry O2 Sat by Pulse Oximetry [ Assessment] 11/24/17 11/24/17 11/24/17 04:00 04:01 04:15 Temperature 98.4 F Pulse Rate 85 72 Pulse Rate [ 101 H Right From Monitor] Respiratory 26 H 20 Rate Blood Pressure 127/62 114/60 O2 Sat by Pulse 100 100 100 Oximetry O2 Sat by Pulse Oximetry [ Assessment] 11/24/17 11/24/17 11/24/17 04:30 05:01 05:30 Temperature Pulse Rate 92 H 78 100 H Pulse Rate [ Right From Monitor] Respiratory 22 20 14 Rate Blood Pressure 126/70 105/46 127/61 O2 Sat by Pulse 100 99 100 Oximetry O2 Sat by Pulse Oximetry [ Assessment] 11/24/17 11/24/17 11/24/17 06:00 06:30 07:00 Temperature Pulse Rate 78 83 73 Pulse Rate [ Right From Monitor] Respiratory 20 20 20 Rate Blood Pressure 109/51 110/57 110/54 O2 Sat by Pulse 100 100 100 Oximetry O2 Sat by Pulse Oximetry [ Assessment] 11/24/17 07:30 Temperature Pulse Rate 98 H Pulse Rate [ Right From Monitor] Respiratory 18 Rate Blood Pressure 133/56 O2 Sat by Pulse 100 Oximetry O2 Sat by Pulse Oximetry [ Assessment] - General Appearance General appearance: well-developed, well-nourished, intubated, frail EENT: PERRL, mucous membranes moist Neck: other (trache ) Respiratory: Present: Other (bilateral coarse breath sounds ) Gastrointestinal: normal, normoactive bowel sounds Integumentary: other (1+ edema . left femoral vascath in place ) - Lab 11/24/17 05:42 11/24/17 05:42 Most recent lab results Calcium 5.3 mg/dL (8.4-10.2) L* D 11/24/17 05:42 Magnesium 1.30 mg/dL (1.7-2.3) L 11/24/17 05:42
[2017-11-24] MEDS ORDERED: NACL 0.9% 100 ML IV PRN (09:02)
[2017-11-24 09:07] LABS: Basophils % (Manual) 0 % (0.0-1.8); Eosinophils % (Manual) 0 % (0.0-4.3); Total Cells Counted 100
[2017-11-24 09:11] LABS: Anisocytosis Few; Target Cells Few
[2017-11-24] MEDS: KCL 10MEQ/100ML 10 MEQ/100 ML BAG IV SCH ×7 (09:39→17:57)
[2017-11-24] MEDS: PROTONIX (nf) FEEDTUBE SCH (09:39)
[2017-11-24] MEDS: SODIUM CHLORIDE FLUSH SYRINGE 10 ML IV SCH ×2 (09:39→22:46)
--- NOTE | 2017-11-24 10:30 | Gastroenterology Progress Note ---
<LUCIO DAMIAN - Last Filed: 11/24/17 10:34> Assessment and Plan 1.GI bleed 2.melena 3.acute respiratory failure (s/p trach) 3.septic shock 4.pneumonia 5.recent CVA (s/p CEA) -HGB 6.2-trended down (2 units PRBCs pending transfusion) -continue to monitor H/H and transfuse as needed -BM x 4 overnight with black stool -EGD/PEG 11/06 -EGD 11/18 that revealed a 4-5cm HH, gastritis, and 10mm linear ulcer in proximal lesser curvature with erythema but no bleeding stigmata -hold any blood thinning medications -start on PPI drip -hold TFs now -Keep NPO for possible repeat EGD today -continue supportive care -will follow Subjective Date of service: 11/24/17 Principal diagnosis: GI bleed Interval history: GI has been re-consulted on this patient for GI bleeding. BMs x 4 overnight with black stool per nursing. No hematemesis or hematochezia. No evidence of abd pain or N/V. Objective - Constitutional Vitals: Temp Pulse Resp BP Pulse Ox 98.3 F 94 H 23 108/62 100 11/24/17 08:00 11/24/17 10:01 11/24/17 10:01 11/24/17 10:01 11/24/17 10:01 General appearance: other (sedated on vent) - Respiratory Respiratory: bilateral: other (coarse) - Cardiovascular Rhythm: regular - Gastrointestinal General gastrointestinal: Present: soft, non-distended, normal bowel sounds - Neurologic Neurological: other (unable to assess) - Labs CBC & Chem 7: 11/24/17 05:42 11/24/17 05:42 Labs: Laboratory Results - last 24 hr 11/23/17 11/23/17 11/23/17 12:32 17:53 23:41 WBC RBC Hgb Hct MCV MCH MCHC RDW Plt Count Add Manual Diff Total Counted Seg Neutrophils % Seg Neuts % (Manual) Band Neutrophils % Lymphocytes % (Manual) Reactive Lymphs % (Man) Monocytes % (Manual) Eosinophils % (Manual) Basophils % (Manual) Metamyelocytes % Myelocytes % Promyelocytes % Blast Cells % Nucleated RBC % Seg Neutrophils # Man Band Neutrophils # Lymphocytes # (Manual) Abs React Lymphs (Man) Monocytes # (Manual) Eosinophils # (Manual) Basophils # (Manual) Metamyelocytes # Myelocytes # Promyelocytes # Blast Cells # WBC Morphology Hypersegmented Neuts Hyposegmented Neuts Hypogranular Neuts Smudge Cells Toxic Granulation Toxic Vacuolation Dohle Bodies Pelger-Huet Anomaly Evangelina Rods Platelet Estimate Clumped Platelets Plt Clumps, EDTA Large Platelets Giant Platelets Platelet Satelliting Plt Morphology Comment RBC Morphology Dimorphic RBCs Polychromasia Hypochromasia Poikilocytosis Anisocytosis Microcytosis Macrocytosis Spherocytes Pappenheimer Bodies Sickle Cells Target Cells Tear Drop Cells Ovalocytes Helmet Cells Dukes-[place] Bodies [place] Rings [place] Cells Bite Cells Crenated Cell Elliptocytes Acanthocytes (Spur) Rouleaux Hemoglobin C Crystals Schistocytes Malaria parasites [place] Bodies Hem Pathologist Commnt Sodium Potassium Chloride Carbon Dioxide Anion Gap BUN Creatinine Estimated GFR BUN/Creatinine Ratio Glucose POC Glucose 138 H 173 H 133 H Lactic Acid Calcium Magnesium Blood Type Antibody Screen Crossmatch 11/24/17 11/24/17 11/24/17 05:42 05:42 05:42 WBC 21.5 H RBC 2.48 L Hgb 6.2 L Hct 20.3 L D MCV 82 L MCH 25 L MCHC 31 L RDW 18.9 H Plt Count 350 Add Manual Diff Complete Total Counted 100 Seg Neutrophils % [employer] Seg Neuts % (Manual) 94.0 H Band Neutrophils % 0 Lymphocytes % (Manual) 3.0 L Reactive Lymphs % (Man) 0 Monocytes % (Manual) 3.0 Eosinophils % (Manual) 0 Basophils % (Manual) 0 Metamyelocytes % 0 Myelocytes % 0 Promyelocytes % 0 Blast Cells % 0 Nucleated RBC % Not Reportable Seg Neutrophils # Man 20.2 H Band Neutrophils # 0.0 Lymphocytes # (Manual) 0.6 L Abs React Lymphs (Man) 0.0 Monocytes # (Manual) 0.6 Eosinophils # (Manual) 0.0 Basophils # (Manual) 0.0 Metamyelocytes # 0.0 Myelocytes # 0.0 Promyelocytes # 0.0 Blast Cells # 0.0 WBC Morphology Not Reportable Hypersegmented Neuts Not Reportable Hyposegmented Neuts Not Reportable Hypogranular Neuts Not Reportable Smudge Cells Not Reportable Toxic Granulation Not Reportable Toxic Vacuolation Not Reportable Dohle Bodies Not Reportable Pelger-Huet Anomaly Not Reportable Evangelina Rods Not Reportable Platelet Estimate Appears normal Clumped Platelets Not Reportable Plt Clumps, EDTA Not Reportable Large Platelets Not Reportable Giant Platelets Not Reportable Platelet Satelliting Not Reportable Plt Morphology Comment Not Reportable RBC Morphology Not Reportable Dimorphic RBCs Not Reportable Polychromasia Not Reportable Hypochromasia Not Reportable Poikilocytosis Not Reportable Anisocytosis Few Microcytosis Not Reportable Macrocytosis Not Reportable Spherocytes Not Reportable Pappenheimer Bodies Not Reportable Sickle Cells Not Reportable Target Cells Few Tear Drop Cells Not Reportable Ovalocytes Not Reportable Helmet Cells Not Reportable Dukes-[place] Bodies Not Reportable [place] Rings Not Reportable [place] Cells Not Reportable Bite Cells Not Reportable Crenated Cell Not Reportable Elliptocytes Not Reportable Acanthocytes (Spur) Not Reportable Rouleaux Not Reportable Hemoglobin C Crystals Not Reportable Schistocytes Not Reportable Malaria parasites Not Reportable [place] Bodies Not Reportable Hem Pathologist Commnt No Sodium 149 H Potassium 2.8 L* D Chloride 113.9 H Carbon Dioxide 19 L Anion Gap 19 BUN 31 H Creatinine 2.3 H Estimated GFR 34 BUN/Creatinine Ratio 13 Glucose 103 H POC Glucose Lactic Acid 5.40 H* Calcium 5.3 L* D Magnesium 1.30 L Blood Type Antibody Screen Crossmatch 11/24/17 11/24/17 08:27 08:27 WBC RBC Hgb Hct MCV MCH MCHC RDW Plt Count Add Manual Diff Total Counted Seg Neutrophils % Seg Neuts % (Manual) Band Neutrophils % Lymphocytes % (Manual) Reactive Lymphs % (Man) Monocytes % (Manual) Eosinophils % (Manual) Basophils % (Manual) Metamyelocytes % Myelocytes % Promyelocytes % Blast Cells % Nucleated RBC % Seg Neutrophils # Man Band Neutrophils # Lymphocytes # (Manual) Abs React Lymphs (Man) Monocytes # (Manual) Eosinophils # (Manual) Basophils # (Manual) Metamyelocytes # Myelocytes # Promyelocytes # Blast Cells # WBC Morphology Hypersegmented Neuts Hyposegmented Neuts Hypogranular Neuts Smudge Cells Toxic Granulation Toxic Vacuolation Dohle Bodies Pelger-Huet Anomaly Evangelina Rods Platelet Estimate Clumped Platelets Plt Clumps, EDTA Large Platelets Giant Platelets Platelet Satelliting Plt Morphology Comment RBC Morphology Dimorphic RBCs Polychromasia Hypochromasia Poikilocytosis Anisocytosis Microcytosis Macrocytosis Spherocytes Pappenheimer Bodies Sickle Cells Target Cells Tear Drop Cells Ovalocytes Helmet Cells Dukes-[place] Bodies [place] Rings [place] Cells Bite Cells Crenated Cell Elliptocytes Acanthocytes (Spur) Rouleaux Hemoglobin C Crystals Schistocytes Malaria parasites [place] Bodies Hem Pathologist Commnt Sodium Potassium Chloride Carbon Dioxide Anion Gap BUN Creatinine Estimated GFR BUN/Creatinine Ratio Glucose POC Glucose Lactic Acid 5.20 H* Calcium Magnesium Blood Type A POSITIVE Antibody Screen Negative Crossmatch See Detail <PATRICK LOZANO R - Last Filed: 11/24/17 17:38> Assessment and Plan Pt hemodynamically stable, off pressors. No further melena or evid of GI bleed. Currently undergoing dialysis. Will repeat EGD if has ongoing bleed. Objective - Constitutional Vitals: Temp Pulse Resp BP Pulse Ox 98.6 F 84 17 121/65 100 11/24/17 16:00 11/24/17 17:00 11/24/17 17:00 11/24/17 17:00 11/24/17 17:00 - Labs CBC & Chem 7: 11/24/17 05:42 11/24/17 05:42 Labs: Laboratory Results - last 24 hr 11/23/17 11/23/17 11/24/17 17:53 23:41 05:42 WBC 21.5 H RBC 2.48 L Hgb 6.2 L Hct 20.3 L D MCV 82 L MCH 25 L MCHC 31 L RDW 18.9 H Plt Count 350 Add Manual Diff Complete Total Counted 100 Seg Neutrophils % [employer] Seg Neuts % (Manual) 94.0 H Band Neutrophils % 0 Lymphocytes % (Manual) 3.0 L Reactive Lymphs % (Man) 0 Monocytes % (Manual) 3.0 Eosinophils % (Manual) 0 Basophils % (Manual) 0 Metamyelocytes % 0 Myelocytes % 0 Promyelocytes % 0 Blast Cells % 0 Nucleated RBC % Not Reportable Seg Neutrophils # Man 20.2 H Band Neutrophils # 0.0 Lymphocytes # (Manual) 0.6 L Abs React Lymphs (Man) 0.0 Monocytes # (Manual) 0.6 Eosinophils # (Manual) 0.0 Basophils # (Manual) 0.0 Metamyelocytes # 0.0 Myelocytes # 0.0 Promyelocytes # 0.0 Blast Cells # 0.0 WBC Morphology Not Reportable Hypersegmented Neuts Not Reportable Hyposegmented Neuts Not Reportable Hypogranular Neuts Not Reportable Smudge Cells Not Reportable Toxic Granulation Not Reportable Toxic Vacuolation Not Reportable Dohle Bodies Not Reportable Pelger-Huet Anomaly Not Reportable Evangelina Rods Not Reportable Platelet Estimate Appears normal Clumped Platelets Not Reportable Plt Clumps, EDTA Not Reportable Large Platelets Not Reportable Giant Platelets Not Reportable Platelet Satelliting Not Reportable Plt Morphology Comment Not Reportable RBC Morphology Not Reportable Dimorphic RBCs Not Reportable Polychromasia Not Reportable Hypochromasia Not Reportable Poikilocytosis Not Reportable Anisocytosis Few Microcytosis Not Reportable Macrocytosis Not Reportable Spherocytes Not Reportable Pappenheimer Bodies Not Reportable Sickle Cells Not Reportable Target Cells Few Tear Drop Cells Not Reportable Ovalocytes Not Reportable Helmet Cells Not Reportable Dukes-[place] Bodies Not Reportable [place] Rings Not Reportable [place] Cells Not Reportable Bite Cells Not Reportable Crenated Cell Not Reportable Elliptocytes Not Reportable Acanthocytes (Spur) Not Reportable Rouleaux Not Reportable Hemoglobin C Crystals Not Reportable Schistocytes Not Reportable Malaria parasites Not Reportable [place] Bodies Not Reportable Hem Pathologist Commnt No Sodium Potassium Chloride Carbon Dioxide Anion Gap BUN Creatinine Estimated GFR BUN/Creatinine Ratio Glucose POC Glucose 173 H 133 H Lactic Acid Calcium Magnesium Blood Type Antibody Screen Crossmatch 11/24/17 11/24/17 11/24/17 05:42 05:42 08:27 WBC RBC Hgb Hct MCV MCH MCHC RDW Plt Count Add Manual Diff Total Counted Seg Neutrophils % Seg Neuts % (Manual) Band Neutrophils % Lymphocytes % (Manual) Reactive Lymphs % (Man) Monocytes % (Manual) Eosinophils % (Manual) Basophils % (Manual) Metamyelocytes % Myelocytes % Promyelocytes % Blast Cells % Nucleated RBC % Seg Neutrophils # Man Band Neutrophils # Lymphocytes # (Manual) Abs React Lymphs (Man) Monocytes # (Manual) Eosinophils # (Manual) Basophils # (Manual) Metamyelocytes # Myelocytes # Promyelocytes # Blast Cells # WBC Morphology Hypersegmented Neuts Hyposegmented Neuts Hypogranular Neuts Smudge Cells Toxic Granulation Toxic Vacuolation Dohle Bodies Pelger-Huet Anomaly Evangelina Rods Platelet Estimate Clumped Platelets Plt Clumps, EDTA Large Platelets Giant Platelets Platelet Satelliting Plt Morphology Comment RBC Morphology Dimorphic RBCs Polychromasia Hypochromasia Poikilocytosis Anisocytosis Microcytosis Macrocytosis Spherocytes Pappenheimer Bodies Sickle Cells Target Cells Tear Drop Cells Ovalocytes Helmet Cells Dukes-[place] Bodies [place] Rings [place] Cells Bite Cells Crenated Cell Elliptocytes Acanthocytes (Spur) Rouleaux Hemoglobin C Crystals Schistocytes Malaria parasites [place] Bodies Hem Pathologist Commnt Sodium 149 H Potassium 2.8 L* D Chloride 113.9 H Carbon Dioxide 19 L Anion Gap 19 BUN 31 H Creatinine 2.3 H Estimated GFR 34 BUN/Creatinine Ratio 13 Glucose 103 H POC Glucose Lactic Acid 5.40 H* 5.20 H* Calcium 5.3 L* D Magnesium 1.30 L Blood Type Antibody Screen Crossmatch 11/24/17 11/24/17 11/24/17 08:27 12:13 17:22 WBC RBC Hgb Hct MCV MCH MCHC RDW Plt Count Add Manual Diff Total Counted Seg Neutrophils % Seg Neuts % (Manual) Band Neutrophils % Lymphocytes % (Manual) Reactive Lymphs % (Man) Monocytes % (Manual) Eosinophils % (Manual) Basophils % (Manual) Metamyelocytes % Myelocytes % Promyelocytes % Blast Cells % Nucleated RBC % Seg Neutrophils # Man Band Neutrophils # Lymphocytes # (Manual) Abs React Lymphs (Man) Monocytes # (Manual) Eosinophils # (Manual) Basophils # (Manual) Metamyelocytes # Myelocytes # Promyelocytes # Blast Cells # WBC Morphology Hypersegmented Neuts Hyposegmented Neuts Hypogranular Neuts Smudge Cells Toxic Granulation Toxic Vacuolation Dohle Bodies Pelger-Huet Anomaly Evangelina Rods Platelet Estimate Clumped Platelets Plt Clumps, EDTA Large Platelets Giant Platelets Platelet Satelliting Plt Morphology Comment RBC Morphology Dimorphic RBCs Polychromasia Hypochromasia Poikilocytosis Anisocytosis Microcytosis Macrocytosis Spherocytes Pappenheimer Bodies Sickle Cells Target Cells Tear Drop Cells Ovalocytes Helmet Cells Dukes-[place] Bodies [place] Rings [place] Cells Bite Cells Crenated Cell Elliptocytes Acanthocytes (Spur) Rouleaux Hemoglobin C Crystals Schistocytes Malaria parasites [place] Bodies Hem Pathologist Commnt Sodium Potassium Chloride Carbon Dioxide Anion Gap BUN Creatinine Estimated GFR BUN/Creatinine Ratio Glucose POC Glucose 138 H 180 H Lactic Acid Calcium Magnesium Blood Type A POSITIVE Antibody Screen Negative Crossmatch See Detail
[2017-11-24] MEDS: PROTONIX 80 MG in NACL 0.9% 100 ML IV SCH (13:24)
[2017-11-24] MEDS ORDERED: WATER FOR IRRIG STERILE IR ONE (15:15)
[2017-11-24] MEDS ORDERED: WATER FOR IRRIG STERILE ONE (15:15)
[2017-11-24] MEDS ORDERED: NACL 0.9% 1000 ML 1,000 ML ONE (15:16)
[2017-11-24] MEDS ORDERED: DIPRIVAN 10 MG/ML IV ONE (15:23)
--- NOTE | 2017-11-24 16:30 | Progress Note ---
Assessment and Plan Imp: 1. CVA 2. Hemiparesis 3. Aspiration pneumonitis related to above 4. Sepsis 5. DARYA 6. s/p Trach/PEG Rec: 1. Stop IVFs since he is now on HD; needs volume removal given anasarca 2. Cont. Zosyn; consider calling ID back given recent episode of hypotension/ sepsis 3. Resume TFs when okay with GI; may need repeat EGD 4. SCDs; GI PPx 5. SBT and SAT daily; trach will need to be permanent for secretion clearance 6. Monitor off pressors 7. 2 units of PRBCs with HD today 8. Poorly explained recent episode of hypotension/leukocytosis/fever, persistent lactic acidosis/leukocytosis, GI bleeding, etc. -> will check CT a/p with PO contrast (avoid IV contrast due to DARYA) Long-term prognosis poor; no family present CCt 31 minutes Subjective Date of service: 11/24/17 Principal diagnosis: GI bleed Interval history: + Melena and drop in H/H. Off sedation, minimally arousable. Off pressors. Active Medications Acetaminophen (Tylenol) 650 mg [place] Q4H PRN PRN Reason: Pain MILD(1-3)/Fever >100.5/CABELLO Last Admin: 11/22/17 09:07 Dose: 650 mg Lipase/Protease/Amylase (Pancreaze Dr 10,500 Unit) 1 each FEEDTUBE PRN PRN PRN Reason: For Clogged Feeding Tube Fentanyl Citrate (Fentanyl Drip Premix) 2,000 mcg in 100 mls @ 3.969 mls/hr IV TITR OSIRIS; Protocol Last Titration: 11/12/17 04:07 Dose: 5 mcg/kg/hr, 19.845 mls/hr Propofol (Diprivan 10 Mg/Ml) 1,000 mg in 100 mls @ 2.381 mls/hr IV TITR OSIRIS; Protocol Last Titration: 11/17/17 19:32 Dose: 10 mcg/kg/min, 4.763 mls/hr Norepinephrine 8 mg/ Sodium (Chloride) 250 mls @ 3.75 mls/hr IV TITR OSIRIS; Protocol Last Titration: 11/23/17 04:00 Dose: 0 mcg/min, 0 mls/hr Phenylephrine HCl 100 mg/ (Sodium Chloride) 100 mls @ 3 mls/hr IV TITR OSIRIS; Protocol Last Titration: 11/22/17 00:10 Dose: 0 mcg/min, 0 mls/hr Piperacillin Sod/Tazobactam Sod (Zosyn/Ns 2.25 Gm/50ml) 2.25 gm in 50 mls @ 100 mls/hr IV Q8HR OSIRIS; Protocol Stop: 11/28/17 23:59 Last Admin: 11/24/17 06:00 Dose: 100 mls/hr Sodium Chloride (Nacl 0.9%) 100 mls @ 999 mls/hr IV TIM PRN PRN Reason: Hypotension during HD Sodium Chloride (Nacl 0.9%) 100 mls @ 999 mls/hr IV TIM PRN PRN Reason: Hypotension Pantoprazole Sodium 80 mg/ (Sodium Chloride) 100 mls @ 10 mls/hr IV DIRECT OSIRIS Last Admin: 11/24/17 13:24 Dose: 8 mg/hr, 10 mls/hr Ondansetron HCl (Zofran) 4 mg IV Q8H PRN PRN Reason: Nausea And Vomiting Simple Syrup (Simple Syrup) 15 ml FEEDTUBE PRN PRN PRN Reason: Hypoglycemia Last Admin: 11/21/17 11:26 Dose: 15 ml Simple Syrup (Simple Syrup) 30 ml FEEDTUBE PRN PRN PRN Reason: Hypoglycemia Sodium Bicarbonate (Sodium Bicarbonate) 325 mg FEEDTUBE PRN PRN PRN Reason: For Clogged Feeding Tube Sodium Chloride (Sodium Chloride Flush Syringe 10 Ml) 10 ml IV BID [facility] Last Admin: 11/24/17 09:39 Dose: 10 ml Sodium Chloride (Sodium Chloride Flush Syringe 10 Ml) 10 ml IV PRN PRN PRN Reason: LINE FLUSH Objective Vital Signs - 12hr 11/24/17 11/24/17 11/24/17 04:30 05:01 05:30 Temperature Pulse Rate 92 H 78 100 H Pulse Rate [ Right From Monitor] Respiratory 22 20 14 Rate Blood Pressure 126/70 105/46 127/61 O2 Sat by Pulse 100 99 100 Oximetry O2 Sat by Pulse Oximetry [ Assessment] O2 Sat by Pulse Oximetry [ Bilateral Throughout] 11/24/17 11/24/17 11/24/17 06:00 06:30 07:00 Temperature Pulse Rate 78 83 73 Pulse Rate [ Right From Monitor] Respiratory 20 20 20 Rate Blood Pressure 109/51 110/57 110/54 O2 Sat by Pulse 100 100 100 Oximetry O2 Sat by Pulse Oximetry [ Assessment] O2 Sat by Pulse Oximetry [ Bilateral Throughout] 11/24/17 11/24/17 11/24/17 07:30 08:00 08:30 Temperature 98.3 F Pulse Rate 98 H 76 73 Pulse Rate [ 82 Right From Monitor] Respiratory 18 20 20 Rate Blood Pressure 133/56 111/56 100/50 O2 Sat by Pulse 100 100 99 Oximetry O2 Sat by Pulse Oximetry [ Assessment] O2 Sat by Pulse Oximetry [ Bilateral Throughout] 11/24/17 11/24/17 11/24/17 08:45 09:00 09:01 Temperature Pulse Rate 95 H 87 Pulse Rate [ Right From Monitor] Respiratory 20 Rate Blood Pressure 109/58 109/58 O2 Sat by Pulse 100 100 Oximetry O2 Sat by Pulse 100 Oximetry [ Assessment] O2 Sat by Pulse Oximetry [ Bilateral Throughout] 11/24/17 11/24/17 11/24/17 09:30 10:00 10:01 Temperature Pulse Rate 80 82 94 H Pulse Rate [ Right From Monitor] Respiratory 21 23 Rate Blood Pressure 105/52 108/62 O2 Sat by Pulse 100 100 Oximetry O2 Sat by Pulse Oximetry [ Assessment] O2 Sat by Pulse Oximetry [ Bilateral Throughout] 11/24/17 11/24/17 11/24/17 10:31 11:00 11:31 Temperature Pulse Rate 95 H 80 76 Pulse Rate [ Right From Monitor] Respiratory 26 H 20 20 Rate Blood Pressure 108/62 98/56 122/61 O2 Sat by Pulse 100 100 100 Oximetry O2 Sat by Pulse Oximetry [ Assessment] O2 Sat by Pulse Oximetry [ Bilateral Throughout] 11/24/17 11/24/17 11/24/17 12:00 12:31 13:00 Temperature 98.2 F Pulse Rate 76 98 H 91 H Pulse Rate [ Right From Monitor] Respiratory 17 21 24 Rate Blood Pressure 113/59 147/73 129/69 O2 Sat by Pulse 100 100 99 Oximetry O2 Sat by Pulse Oximetry [ Assessment] O2 Sat by Pulse Oximetry [ Bilateral Throughout] 11/24/17 11/24/17 11/24/17 13:30 13:35 13:45 Temperature 98.2 F 98.2 F Pulse Rate 93 H 89 88 Pulse Rate [ Right From Monitor] Respiratory 21 23 Rate Blood Pressure 136/70 137/68 116/59 O2 Sat by Pulse 100 100 Oximetry O2 Sat by Pulse Oximetry [ Assessment] O2 Sat by Pulse 100 Oximetry [ Bilateral Throughout] 11/24/17 11/24/17 11/24/17 14:00 14:04 14:16 Temperature 98.2 F Pulse Rate 87 83 81 Pulse Rate [ Right From Monitor] Respiratory 21 23 Rate Blood Pressure 112/67 112/67 110/63 O2 Sat by Pulse 100 100 Oximetry O2 Sat by Pulse Oximetry [ Assessment] O2 Sat by Pulse Oximetry [ Bilateral Throughout] 11/24/17 11/24/17 11/24/17 14:19 14:23 14:30 Temperature 98.0 F 98.0 F Pulse Rate 68 88 Pulse Rate [ Right From Monitor] Respiratory 23 21 17 Rate Blood Pressure 110/63 123/67 123/67 O2 Sat by Pulse 100 100 100 Oximetry O2 Sat by Pulse Oximetry [ Assessment] O2 Sat by Pulse Oximetry [ Bilateral Throughout] 11/24/17 11/24/17 11/24/17 14:45 15:00 15:09 Temperature Pulse Rate 82 77 77 Pulse Rate [ Right From Monitor] Respiratory 21 Rate Blood Pressure 107/67 119/64 119/64 O2 Sat by Pulse 100 100 Oximetry O2 Sat by Pulse Oximetry [ Assessment] O2 Sat by Pulse Oximetry [ Bilateral Throughout] 11/24/17 11/24/17 11/24/17 15:15 15:30 15:59 Temperature Pulse Rate 68 101 H Pulse Rate [ Right From Monitor] Respiratory 16 Rate Blood Pressure 115/63 108/81 O2 Sat by Pulse 100 Oximetry O2 Sat by Pulse 97 Oximetry [ Assessment] O2 Sat by Pulse Oximetry [ Bilateral Throughout] 11/24/17 16:00 Temperature Pulse Rate 90 Pulse Rate [ Right From Monitor] Respiratory 18 Rate Blood Pressure 105/64 O2 Sat by Pulse 100 Oximetry O2 Sat by Pulse Oximetry [ Assessment] O2 Sat by Pulse Oximetry [ Bilateral Throughout] Constitutional: other (s/p trach, critically ill) Eyes: non-icteric ENT: oropharynx moist Neck: supple Effort: normal Ascultation: Bilateral: other (coarse BS bilaterally) Cardiovascular: regular rate and rhythm (no mrg) Gastrointestinal: normoactive bowel sounds, soft, non-tender, non-distended Integumentary: normal Extremities: no cyanosis, anasarca Neurologic: other (L hemiparesis, sedated) Psychiatric: other (unable to assess) CBC and BMP: 11/24/17 05:42 11/24/17 05:42 ABG, PT/INR, D-dimer: ABG POC ABG pH 7.505 (7.35-7.45) H 11/23/17 04:56 POC ABG pCO2 26.3 (35-45) L 11/23/17 04:56 POC ABG pO2 100 (80-105) 11/23/17 04:56 POC ABG HCO3 20.8 11/23/17 04:56 POC ABG Total CO2 22 11/23/17 04:56 POC ABG O2 Sat 98 11/23/17 04:56 PT/INR, D-dimer PT 16.7 Sec. (12.2-14.9) H 11/18/17 04:34 INR 1.30 (0.87-1.13) H 11/18/17 04:34 Abnormal lab findings: Abnormal Labs 11/11/17 11/11/17 11/11/17 23:18 23:20 23:20 WBC RBC Hgb 10.4 L Hct 32.6 L D MCV MCH 27 L MCHC RDW 17.4 H Plt Count 105 L Lymph % (Auto) [place] % (Auto) Lymph # [place] # Seg Neutrophils % Seg Neuts % (Manual) Lymphocytes % (Manual) 8.0 L Monocytes % (Manual) Nucleated RBC % 1.0 H Seg Neutrophils # Seg Neutrophils # Man Lymphocytes # (Manual) 0.7 L Monocytes # (Manual) PT INR POC ABG pH 7.550 H POC ABG pCO2 31.6 L POC ABG pO2 Sodium 146 H Potassium Chloride Carbon Dioxide BUN 26 H Creatinine 1.7 H D Glucose 133 H POC Glucose Lactic Acid Calcium Magnesium Troponin T 0.117 H* C-Reactive Protein Albumin 2.5 L LDL Cholesterol Direct 42 L HDL Cholesterol 24 L Hepatitis C Antibody Crossmatch 11/11/17 11/12/17 11/12/17 23:20 00:23 00:23 WBC RBC Hgb Hct MCV MCH MCHC RDW Plt Count Lymph % (Auto) [place] % (Auto) Lymph # [place] # Seg Neutrophils % Seg Neuts % (Manual) Lymphocytes % (Manual) Monocytes % (Manual) Nucleated RBC % Seg Neutrophils # Seg Neutrophils # Man Lymphocytes # (Manual) Monocytes # (Manual) PT 16.7 H INR 1.28 H POC ABG pH POC ABG pCO2 POC ABG pO2 Sodium Potassium Chloride Carbon Dioxide BUN Creatinine Glucose POC Glucose Lactic Acid 3.20 H* Calcium Magnesium Troponin T C-Reactive Protein 25.70 H Albumin LDL Cholesterol Direct HDL Cholesterol Hepatitis C Antibody Crossmatch 11/12/17 11/12/17 11/12/17 00:46 01:27 01:27 WBC RBC Hgb Hct MCV MCH MCHC RDW Plt Count Lymph % (Auto) [place] % (Auto) Lymph # [place] # Seg Neutrophils % Seg Neuts % (Manual) Lymphocytes % (Manual) Monocytes % (Manual) Nucleated RBC % Seg Neutrophils # Seg Neutrophils # Man Lymphocytes # (Manual) Monocytes # (Manual) PT INR POC ABG pH 7.495 H POC ABG pCO2 32.0 L POC ABG pO2 64 L Sodium Potassium Chloride Carbon Dioxide BUN Creatinine Glucose POC Glucose Lactic Acid 3.70 H* Calcium Magnesium Troponin T 0.096 H C-Reactive Protein Albumin LDL Cholesterol Direct HDL Cholesterol Hepatitis C Antibody Crossmatch 11/12/17 11/12/17 11/12/17 03:21 04:50 06:27 WBC RBC Hgb Hct MCV MCH MCHC RDW Plt Count Lymph % (Auto) [place] % (Auto) Lymph # [place] # Seg Neutrophils % Seg Neuts % (Manual) Lymphocytes % (Manual) Monocytes % (Manual) Nucleated RBC % Seg Neutrophils # Seg Neutrophils # Man Lymphocytes # (Manual) Monocytes # (Manual) PT INR POC ABG pH POC ABG pCO2 POC ABG pO2 109 H Sodium Potassium Chloride Carbon Dioxide BUN Creatinine Glucose POC Glucose Lactic Acid 3.80 H* 2.20 H* Calcium Magnesium Troponin T C-Reactive Protein Albumin LDL Cholesterol Direct HDL Cholesterol Hepatitis C Antibody Crossmatch 11/12/17 11/12/17 11/12/17 09:24 09:24 09:24 WBC RBC Hgb 10.4 L Hct 33.4 L MCV MCH MCHC RDW Plt Count Lymph % (Auto) [place] % (Auto) Lymph # [place] # Seg Neutrophils % Seg Neuts % (Manual) Lymphocytes % (Manual) Monocytes % (Manual) Nucleated RBC % Seg Neutrophils # Seg Neutrophils # Man Lymphocytes # (Manual) Monocytes # (Manual) PT INR POC ABG pH POC ABG pCO2 POC ABG pO2 Sodium Potassium Chloride Carbon Dioxide BUN Creatinine Glucose POC Glucose Lactic Acid 2.90 H* Calcium Magnesium Troponin T 0.091 H C-Reactive Protein Albumin LDL Cholesterol Direct HDL Cholesterol Hepatitis C Antibody Crossmatch 11/12/17 11/12/17 11/12/17 12:56 20:03 Unknown WBC RBC Hgb Hct MCV MCH MCHC RDW Plt Count Lymph % (Auto) [place] % (Auto) Lymph # [place] # Seg Neutrophils % Seg Neuts % (Manual) Lymphocytes % (Manual) Monocytes % (Manual) Nucleated RBC % Seg Neutrophils # Seg Neutrophils # Man Lymphocytes # (Manual) Monocytes # (Manual) PT INR POC ABG pH POC ABG pCO2 POC ABG pO2 Sodium Potassium Chloride Carbon Dioxide BUN Creatinine Glucose POC Glucose Lactic Acid 3.60 H* Calcium Magnesium Troponin T 0.102 H* 0.156 H* D C-Reactive Protein Albumin LDL Cholesterol Direct HDL Cholesterol Hepatitis C Antibody Crossmatch 11/12/17 11/13/17 11/13/17 Unknown 04:50 04:50 WBC 12.2 H RBC 3.51 L Hgb 9.3 L Hct 30.1 L MCV MCH 26 L MCHC 31 L RDW 18.0 H Plt Count 128 L Lymph % (Auto) 8.6 L [place] % (Auto) 11.1 H Lymph # 1.1 L [place] # 1.4 H Seg Neutrophils % 80.1 H Seg Neuts % (Manual) Lymphocytes % (Manual) Monocytes % (Manual) Nucleated RBC % Seg Neutrophils # 9.8 H Seg Neutrophils # Man Lymphocytes # (Manual) Monocytes # (Manual) PT INR POC ABG pH POC ABG pCO2 POC ABG pO2 Sodium 149 H Potassium 5.1 H Chloride 114.4 H Carbon Dioxide 18 L BUN 52 H Creatinine 3.3 H D Glucose 129 H POC Glucose Lactic Acid Calcium 7.9 L Magnesium Troponin T 0.098 H C-Reactive Protein Albumin LDL Cholesterol Direct HDL Cholesterol Hepatitis C Antibody Crossmatch 11/13/17 11/13/17 11/14/17 04:51 09:34 04:21 WBC RBC Hgb Hct MCV MCH MCHC RDW Plt Count Lymph % (Auto) [place] % (Auto) Lymph # [place] # Seg Neutrophils % Seg Neuts % (Manual) Lymphocytes % (Manual) Monocytes % (Manual) Nucleated RBC % Seg Neutrophils # Seg Neutrophils # Man Lymphocytes # (Manual) Monocytes # (Manual) PT INR POC ABG pH POC ABG pCO2 30.1 L 29.8 L POC ABG pO2 135 H Sodium Potassium Chloride Carbon Dioxide BUN Creatinine Glucose POC Glucose Lactic Acid 2.10 H* Calcium Magnesium Troponin T C-Reactive Protein Albumin LDL Cholesterol Direct HDL Cholesterol Hepatitis C Antibody Crossmatch 11/15/17 11/15/17 11/16/17 04:52 15:50 05:17 WBC RBC Hgb Hct MCV MCH MCHC RDW Plt Count Lymph % (Auto) [place] % (Auto) Lymph # [place] # Seg Neutrophils % Seg Neuts % (Manual) Lymphocytes % (Manual) Monocytes % (Manual) Nucleated RBC % Seg Neutrophils # Seg Neutrophils # Man Lymphocytes # (Manual) Monocytes # (Manual) PT INR POC ABG pH POC ABG pCO2 29.5 L 31.5 L POC ABG pO2 115 H 122 H Sodium 154 H Potassium Chloride 117.9 H Carbon Dioxide 19 L BUN 87 H Creatinine 4.1 H Glucose POC Glucose Lactic Acid Calcium 8.1 L Magnesium Troponin T C-Reactive Protein Albumin LDL Cholesterol Direct HDL Cholesterol Hepatitis C Antibody Crossmatch 11/16/17 11/17/17 11/17/17 16:37 04:07 10:00 WBC 14.7 H RBC 3.23 L Hgb 8.3 L Hct 28.1 L MCV MCH 26 L MCHC 30 L RDW 18.8 H Plt Count Lymph % (Auto) [place] % (Auto) Lymph # [place] # Seg Neutrophils % Seg Neuts % (Manual) 75 H Lymphocytes % (Manual) 8.0 L Monocytes % (Manual) Nucleated RBC % 1.0 H Seg Neutrophils # Seg Neutrophils # Man 11.0 H Lymphocytes # (Manual) Monocytes # (Manual) 0.9 H PT INR POC ABG pH POC ABG pCO2 POC ABG pO2 Sodium 153 H 155 H Potassium Chloride 117.3 H 119.4 H Carbon Dioxide 19 L 20 L BUN 90 H 89 H Creatinine 3.9 H 3.6 H Glucose 111 H 115 H POC Glucose Lactic Acid Calcium 8.1 L 8.0 L Magnesium Troponin T C-Reactive Protein Albumin LDL Cholesterol Direct HDL Cholesterol Hepatitis C Antibody Crossmatch 11/18/17 11/18/17 11/18/17 04:34 04:34 04:34 WBC 15.5 H RBC 3.13 L Hgb 8.1 L Hct 26.3 L MCV MCH 26 L MCHC 31 L RDW 18.6 H Plt Count Lymph % (Auto) [place] % (Auto) Lymph # [place] # Seg Neutrophils % Seg Neuts % (Manual) 81.0 H Lymphocytes % (Manual) 7.0 L Monocytes % (Manual) Nucleated RBC % 1.0 H Seg Neutrophils # Seg Neutrophils # Man 12.6 H Lymphocytes # (Manual) 1.1 L Monocytes # (Manual) PT 16.7 H INR 1.30 H POC ABG pH POC ABG pCO2 POC ABG pO2 Sodium 155 H Potassium 3.2 L Chloride 121.0 H Carbon Dioxide 20 L BUN 74 H Creatinine 2.9 H Glucose 126 H POC Glucose Lactic Acid Calcium 7.9 L Magnesium Troponin T C-Reactive Protein Albumin LDL Cholesterol Direct HDL Cholesterol Hepatitis C Antibody Crossmatch 11/19/17 11/19/17 11/20/17 04:44 04:44 00:38 WBC 19.0 H 22.2 H RBC 3.20 L 3.17 L Hgb 8.4 L 7.9 L Hct 27.9 L 26.4 L MCV 83 L MCH 26 L 25 L MCHC 30 L 30 L RDW 19.1 H 18.9 H Plt Count Lymph % (Auto) [place] % (Auto) Lymph # [place] # Seg Neutrophils % Seg Neuts % (Manual) 83.0 H Lymphocytes % (Manual) 3.0 L Monocytes % (Manual) 9.0 H Nucleated RBC % Seg Neutrophils # Seg Neutrophils # Man 18.4 H Lymphocytes # (Manual) 0.7 L Monocytes # (Manual) 2.0 H PT INR POC ABG pH POC ABG pCO2 POC ABG pO2 Sodium 152 H Potassium Chloride 117.1 H Carbon Dioxide 17 L BUN 66 H Creatinine 2.8 H Glucose 119 H POC Glucose Lactic Acid Calcium 7.8 L Magnesium 2.70 H Troponin T C-Reactive Protein Albumin LDL Cholesterol Direct HDL Cholesterol Hepatitis C Antibody Crossmatch 11/20/17 11/20/17 11/20/17 03:29 04:48 13:38 WBC RBC Hgb Hct MCV MCH MCHC RDW Plt Count Lymph % (Auto) [place] % (Auto) Lymph # [place] # Seg Neutrophils % Seg Neuts % (Manual) Lymphocytes % (Manual) Monocytes % (Manual) Nucleated RBC % Seg Neutrophils # Seg Neutrophils # Man Lymphocytes # (Manual) Monocytes # (Manual) PT INR POC ABG pH POC ABG pCO2 29.4 L POC ABG pO2 Sodium 148 H Potassium 3.4 L Chloride 113.7 H Carbon Dioxide 18 L BUN 59 H Creatinine 2.7 H Glucose 113 H POC Glucose 128 H Lactic Acid Calcium 7.8 L Magnesium Troponin T C-Reactive Protein Albumin LDL Cholesterol Direct HDL Cholesterol Hepatitis C Antibody Crossmatch 11/20/17 11/20/17 11/21/17 17:38 23:40 00:13 WBC RBC Hgb 8.4 L Hct 28.0 L MCV MCH MCHC RDW Plt Count Lymph % (Auto) [place] % (Auto) Lymph # [place] # Seg Neutrophils % Seg Neuts % (Manual) Lymphocytes % (Manual) Monocytes % (Manual) Nucleated RBC % Seg Neutrophils # Seg Neutrophils # Man Lymphocytes # (Manual) Monocytes # (Manual) PT INR POC ABG pH POC ABG pCO2 POC ABG pO2 Sodium Potassium Chloride Carbon Dioxide BUN Creatinine Glucose POC Glucose 115 H 145 H Lactic Acid Calcium Magnesium Troponin T C-Reactive Protein Albumin LDL Cholesterol Direct HDL Cholesterol Hepatitis C Antibody Crossmatch 11/21/17 11/21/17 11/21/17 04:30 04:30 04:58 WBC 21.0 H RBC Hgb 9.6 L Hct 32.7 L MCV MCH 25 L MCHC 29 L RDW 19.7 H Plt Count 746 H Lymph % (Auto) [place] % (Auto) Lymph # [place] # Seg Neutrophils % Seg Neuts % (Manual) Lymphocytes % (Manual) Monocytes % (Manual) Nucleated RBC % Seg Neutrophils # Seg Neutrophils # Man Lymphocytes # (Manual) Monocytes # (Manual) PT INR POC ABG pH POC ABG pCO2 POC ABG pO2 Sodium Potassium Chloride 109.4 H Carbon Dioxide 14 L BUN 59 H Creatinine 3.0 H Glucose 137 H POC Glucose 132 H Lactic Acid Calcium 7.6 L Magnesium Troponin T C-Reactive Protein Albumin LDL Cholesterol Direct HDL Cholesterol Hepatitis C Antibody Crossmatch 11/21/17 11/21/17 11/21/17 06:30 13:43 14:17 WBC 38.2 H RBC Hgb 9.0 L Hct 32.3 L MCV MCH 25 L MCHC 28 L RDW 20.0 H Plt Count 766 H Lymph % (Auto) [place] % (Auto) Lymph # [place] # Seg Neutrophils % Seg Neuts % (Manual) 85.0 H Lymphocytes % (Manual) 1.0 L Monocytes % (Manual) Nucleated RBC % 2.0 H Seg Neutrophils # Seg Neutrophils # Man 32.5 H Lymphocytes # (Manual) 0.4 L Monocytes # (Manual) 2.3 H PT INR POC ABG pH POC ABG pCO2 18.6 L POC ABG pO2 121 H Sodium 146 H Potassium Chloride 110.9 H Carbon Dioxide 11 L BUN 62 H Creatinine 4.0 H Glucose 64 L POC Glucose Lactic Acid Calcium 7.6 L Magnesium Troponin T C-Reactive Protein Albumin LDL Cholesterol Direct HDL Cholesterol Hepatitis C Antibody Crossmatch 11/21/17 11/21/17 11/22/17 14:17 19:09 00:05 WBC RBC Hgb Hct MCV MCH MCHC RDW Plt Count Lymph % (Auto) [place] % (Auto) Lymph # [place] # Seg Neutrophils % Seg Neuts % (Manual) Lymphocytes % (Manual) Monocytes % (Manual) Nucleated RBC % Seg Neutrophils # Seg Neutrophils # Man Lymphocytes # (Manual) Monocytes # (Manual) PT INR POC ABG pH POC ABG pCO2 20.0 L POC ABG pO2 Sodium Potassium Chloride Carbon Dioxide BUN Creatinine Glucose POC Glucose 127 H Lactic Acid 7.70 H* Calcium Magnesium Troponin T C-Reactive Protein Albumin LDL Cholesterol Direct HDL Cholesterol Hepatitis C Antibody Crossmatch 11/22/17 11/22/17 11/22/17 03:53 06:00 07:25 WBC RBC Hgb Hct MCV MCH MCHC RDW Plt Count Lymph % (Auto) [place] % (Auto) Lymph # [place] # Seg Neutrophils % Seg Neuts % (Manual) Lymphocytes % (Manual) Monocytes % (Manual) Nucleated RBC % Seg Neutrophils # Seg Neutrophils # Man Lymphocytes # (Manual) Monocytes # (Manual) PT INR POC ABG pH POC ABG pCO2 22.2 L POC ABG pO2 Sodium 147 H Potassium Chloride 111.9 H Carbon Dioxide 16 L BUN 72 H Creatinine 5.1 H Glucose 181 H POC Glucose 180 H Lactic Acid Calcium 7.1 L Magnesium Troponin T C-Reactive Protein Albumin LDL Cholesterol Direct HDL Cholesterol Hepatitis C Antibody Crossmatch 11/22/17 11/22/17 11/22/17 07:25 07:25 12:05 WBC 31.4 H RBC 3.22 L Hgb 8.0 L Hct 26.7 L MCV 83 L MCH 25 L MCHC 30 L RDW 19.4 H Plt Count 602 H Lymph % (Auto) [place] % (Auto) Lymph # [place] # Seg Neutrophils % Seg Neuts % (Manual) Lymphocytes % (Manual) Monocytes % (Manual) Nucleated RBC % Seg Neutrophils # Seg Neutrophils # Man Lymphocytes # (Manual) Monocytes # (Manual) PT INR POC ABG pH POC ABG pCO2 POC ABG pO2 Sodium Potassium Chloride Carbon Dioxide BUN Creatinine Glucose POC Glucose 182 H Lactic Acid 5.00 H* Calcium Magnesium Troponin T C-Reactive Protein Albumin LDL Cholesterol Direct HDL Cholesterol Hepatitis C Antibody Crossmatch 11/22/17 11/23/17 11/23/17 19:45 01:28 04:56 WBC RBC Hgb Hct MCV MCH MCHC RDW Plt Count Lymph % (Auto) [place] % (Auto) Lymph # [place] # Seg Neutrophils % Seg Neuts % (Manual) Lymphocytes % (Manual) Monocytes % (Manual) Nucleated RBC % Seg Neutrophils # Seg Neutrophils # Man Lymphocytes # (Manual) Monocytes # (Manual) PT INR POC ABG pH 7.505 H POC ABG pCO2 26.3 L POC ABG pO2 Sodium Potassium Chloride Carbon Dioxide BUN Creatinine Glucose POC Glucose 165 H Lactic Acid Calcium Magnesium Troponin T C-Reactive Protein Albumin LDL Cholesterol Direct HDL Cholesterol Hepatitis C Antibody Reactive A Crossmatch 11/23/17 11/23/17 11/23/17 07:05 12:32 17:53 WBC RBC Hgb Hct MCV MCH MCHC RDW Plt Count Lymph % (Auto) [place] % (Auto) Lymph # [place] # Seg Neutrophils % Seg Neuts % (Manual) Lymphocytes % (Manual) Monocytes % (Manual) Nucleated RBC % Seg Neutrophils # Seg Neutrophils # Man Lymphocytes # (Manual) Monocytes # (Manual) PT INR POC ABG pH POC ABG pCO2 POC ABG pO2 Sodium Potassium Chloride Carbon Dioxide 18 L BUN 61 H Creatinine 4.2 H Glucose 153 H POC Glucose 138 H 173 H Lactic Acid Calcium 7.5 L Magnesium Troponin T C-Reactive Protein Albumin LDL Cholesterol Direct HDL Cholesterol Hepatitis C Antibody Crossmatch 11/23/17 11/24/17 11/24/17 23:41 05:42 05:42 WBC 21.5 H RBC 2.48 L Hgb 6.2 L Hct 20.3 L D MCV 82 L MCH 25 L MCHC 31 L RDW 18.9 H Plt Count Lymph % (Auto) [place] % (Auto) Lymph # [place] # Seg Neutrophils % Seg Neuts % (Manual) 94.0 H Lymphocytes % (Manual) 3.0 L Monocytes % (Manual) Nucleated RBC % Seg Neutrophils # Seg Neutrophils # Man 20.2 H Lymphocytes # (Manual) 0.6 L Monocytes # (Manual) PT INR POC ABG pH POC ABG pCO2 POC ABG pO2 Sodium 149 H Potassium 2.8 L* D Chloride 113.9 H Carbon Dioxide 19 L BUN 31 H Creatinine 2.3 H Glucose 103 H POC Glucose 133 H Lactic Acid Calcium 5.3 L* D Magnesium 1.30 L Troponin T C-Reactive Protein Albumin LDL Cholesterol Direct HDL Cholesterol Hepatitis C Antibody Crossmatch 11/24/17 11/24/17 11/24/17 05:42 08:27 08:27 WBC RBC Hgb Hct MCV MCH MCHC RDW Plt Count Lymph % (Auto) [place] % (Auto) Lymph # [place] # Seg Neutrophils % Seg Neuts % (Manual) Lymphocytes % (Manual) Monocytes % (Manual) Nucleated RBC % Seg Neutrophils # Seg Neutrophils # Man Lymphocytes # (Manual) Monocytes # (Manual) PT INR POC ABG pH POC ABG pCO2 POC ABG pO2 Sodium Potassium Chloride Carbon Dioxide BUN Creatinine Glucose POC Glucose Lactic Acid 5.40 H* 5.20 H* Calcium Magnesium Troponin T C-Reactive Protein Albumin LDL Cholesterol Direct HDL Cholesterol Hepatitis C Antibody Crossmatch See Detail 11/24/17 12:13 WBC RBC Hgb Hct MCV MCH MCHC RDW Plt Count Lymph % (Auto) [place] % (Auto) Lymph # [place] # Seg Neutrophils % Seg Neuts % (Manual) Lymphocytes % (Manual) Monocytes % (Manual) Nucleated RBC % Seg Neutrophils # Seg Neutrophils # Man Lymphocytes # (Manual) Monocytes # (Manual) PT INR POC ABG pH POC ABG pCO2 POC ABG pO2 Sodium Potassium Chloride Carbon Dioxide BUN Creatinine Glucose POC Glucose 138 H Lactic Acid Calcium Magnesium Troponin T C-Reactive Protein Albumin LDL Cholesterol Direct HDL Cholesterol Hepatitis C Antibody Crossmatch Chest x-ray: report reviewed, image reviewed
--- NOTE | 2017-11-24 18:16 | Progress Note ---
Assessment and Plan Assessment and plan: Mr. 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 He had a Carotid doppler done that revealed a right ICA 50-79% stenosis. CTA of the neck revealed 80% stenosis of the right ICA with probable 50% stenosis of the origin of the right common carotid artery. His symptoms were thought to be due to the Carotid artery stenosis which was disheartening since he was on Aspirin and plavix. He was scheduled for right CEA but needed Cardiac clearance. He underwent stress test on 10/05/17 and Food Tester stated he was stable for non-cardiac history, low to moderate perioperative risk. So, he underwent right carotid enarterectomy on 10/09/17. Following the surgery, he developed recurrent left sided weakness/hemiparesis was taken to OR again on for Open Thrombectomy of Right Internal Carotid Artery and Injection of TPA into the Distal Artery. CT head obtained on 10/12/17 showed massive right cerebral hemisphere acute CVA with midline shift. He was discharged on 11/10/17 to [facility] but returned to ED on 11/12/17 for sob. He was admitted for Aspiration post-obstructive pneumonia with suspected mucus plug and subsequently intubated on admission. ON 11/20/17, patient went for Tracheostomy by Dr. Hughes, ENT. Then on 11/21/17 patient went into shock, most sepsis as WBC went up to 38k; most likely Aspiration pneumonitis, antibiotics restarted. He was on maximum dose of Levophed and Neosynephrine (right femoral line placed 11/21/[address] Celis for vasopressors). Then 11/22/17 (Thursday morning) the Neosynephrine weaned off and Levophed down to 10 mcg, also Dr. Palmer placed a left femoral tunnel cath for Hemodialysis. Today, Levophed has been weaned off. * CTA chest IMPRESSION: There is no thoracic aortic aneurysm or dissection.. There is no pulmonary embolism.. There is complete atelectasis of the left lung causing volume loss and mediastinal shift to the left. This is due to blockage of the left bronchus by the endotracheal tube which is in the right mainstem bronchus. There is no pleural effusion or pneumothorax.. There is pneumoperitoneum and ascites.. Dr. Navarro was notified by telephone at 3:20 a.m. central. * 1v Abd XRAY IMPRESSION: Nasogastric tube ends in the stomach. A PEG tube is identified. Bowel gas pattern is nonobstructive. -Acute on chronic blood loss anemia w/Coffee-ground material from peg tube: GI is following, treat with ppi iv bid, EGD done 11/18/17 showed 8 mm cratered, 10 mm linear ulcer proximal lesser curvature with erythema but no other bleeding stigmata, gastritis and 4-5 cm hiatal hernia 2 UNITS PRBC ORDERED. MONITOR H/H Acute hypoxic respiratory failure due to Pneumonia on MV>96 hours s/p Tracheostomy 11/20/17: continue MV, daily weaning attempt -Leukocyotosis with Sepsis with transient septic shock, poa: shock resolved, continue abx, ID is following -Aspiration pneumonia, with mucus plugging/post obstructive pna poa: Forensic Photographer is following, following sunction protocols -Acute encephalopathy: treat supportively -Hypernatremia: treat with free water, monitor bmp closely -Hypokalemia: replace and monitor closely -ARF vasomotor nephropathy, poa: IV fluids, monitor bmp closely -Dysphagia with aspiration: s/p peg tube - No family present at this time. -Advance care planning: full code Note copied in order to maintain accurate continuation in this complex case. Changes made to indicate current events and management. The high probability of a clinically significant, sudden or life threatening deterioration of the [HEMATOLOGY, PULMONARY] system(s) required my full and direct attention, intervention and personal management. The aggregate critical care time was [45] minutes. This time is in addition to time spent performing reported procedures but includes the following: [X] Data Review and interpretation [X] Patient assessment and monitoring of vital signs [X] Documentation [X] Medication orders and management History Interval history: Patient was seen and examined. Follow-up on current diagnosis of respiratory failure. very drowsy, but per nursing staff awakes and follows some commands Hospitalist Physical - Physical exam Narrative exam: GEN: ill appearing, not sedated, on MV via trach, HEENT: NCAT, pupils reactive, anicteric, NECK: supple, no adenopathy, no thyromegaly, no JVD, trach in place CVS/HEART: RRR, normal S1S2, pulses present bilaterally CHEST/LUNGS: Symmetrical chest expansion, good air entry bilaterally GI/Abdomen: soft, distended, pbs, +peg tube in place EXT/Skin: generalized edema x 4 MSK: left hemiparesis Neuro: doesn't follow commands Psych: confused and semi-comatose state - Constitutional Vitals: Temp Pulse Resp BP Pulse Ox 98.6 F 84 17 121/65 100 11/24/17 16:00 11/24/17 17:00 11/24/17 17:00 11/24/17 17:00 11/24/17 17:00 General appearance: Present: no acute distress, obese Results - Labs CBC & Chem 7: 11/24/17 05:42 11/24/17 05:42 Labs: Laboratory Last Values WBC 21.5 K/mm3 (4.5-11.0) H 11/24/17 05:42 RBC 2.48 M/mm3 (3.65-5.03) L 11/24/17 05:42 Hgb 6.2 gm/dl (11.8-15.2) L 11/24/17 05:42 Hct 20.3 % (35.5-45.6) L D 11/24/17 05:42 MCV 82 fl (84-94) L 11/24/17 05:42 MCH 25 pg (28-32) L 11/24/17 05:42 MCHC 31 % (32-34) L 11/24/17 05:42 RDW 18.9 % (13.2-15.2) H 11/24/17 05:42 Plt Count 350 K/mm3 (140-440) 11/24/17 05:42 Lymph % (Auto) 8.6 % (13.4-35.0) L 11/13/17 04:50 [place] % (Auto) 11.1 % (0.0-7.3) H 11/13/17 04:50 Eos % (Auto) 0.0 % (0.0-4.3) 11/13/17 04:50 Baso % (Auto) 0.2 % (0.0-1.8) 11/13/17 04:50 Lymph # 1.1 K/mm3 (1.2-5.4) L 11/13/17 04:50 [place] # 1.4 K/mm3 (0.0-0.8) H 11/13/17 04:50 Eos # 0.0 K/mm3 (0.0-0.4) 11/13/17 04:50 Baso # 0.0 K/mm3 (0.0-0.1) 11/13/17 04:50 Add Manual Diff Complete 11/24/17 05:42 Total Counted 100 11/24/17 05:42 Seg Neutrophils % [employer] Consultant 11/24/17 05:42 Seg Neuts % (Manual) 94.0 % (40.0-70.0) H 11/24/17 05:42 Band Neutrophils % 0 % 11/24/17 05:42 Lymphocytes % (Manual) 3.0 % (13.4-35.0) L 11/24/17 05:42 Reactive Lymphs % (Man) 0 % 11/24/17 05:42 Monocytes % (Manual) 3.0 % (0.0-7.3) 11/24/17 05:42 Eosinophils % (Manual) 0 % (0.0-4.3) 11/24/17 05:42 Basophils % (Manual) 0 % (0.0-1.8) 11/24/17 05:42 Metamyelocytes % 0 % 11/24/17 05:42 Myelocytes % 0 % 11/24/17 05:42 Promyelocytes % 0 % 11/24/17 05:42 Blast Cells % 0 % 11/24/17 05:42 Nucleated RBC % Not Reportable 11/24/17 05:42 Seg Neutrophils # 9.8 K/mm3 (1.8-7.7) H 11/13/17 04:50 Seg Neutrophils # Man 20.2 K/mm3 (1.8-7.7) H 11/24/17 05:42 Band Neutrophils # 0.0 K/mm3 11/24/17 05:42 Lymphocytes # (Manual) 0.6 K/mm3 (1.2-5.4) L 11/24/17 05:42 Abs React Lymphs (Man) 0.0 K/mm3 11/24/17 05:42 Monocytes # (Manual) 0.6 K/mm3 (0.0-0.8) 11/24/17 05:42 Eosinophils # (Manual) 0.0 K/mm3 (0.0-0.4) 11/24/17 05:42 Basophils # (Manual) 0.0 K/mm3 (0.0-0.1) 11/24/17 05:42 Metamyelocytes # 0.0 K/mm3 11/24/17 05:42 Myelocytes # 0.0 K/mm3 11/24/17 05:42 Promyelocytes # 0.0 K/mm3 11/24/17 05:42 Blast Cells # 0.0 K/mm3 11/24/17 05:42 WBC Morphology Not Reportable 11/24/17 05:42 Hypersegmented Neuts Not Reportable 11/24/17 05:42 Hyposegmented Neuts Not Reportable 11/24/17 05:42 Hypogranular Neuts Not Reportable 11/24/17 05:42 Smudge Cells Not Reportable 11/24/17 05:42 Toxic Granulation Not Reportable 11/24/17 05:42 Toxic Vacuolation Not Reportable 11/24/17 05:42 Dohle Bodies Not Reportable 11/24/17 05:42 Pelger-Huet Anomaly Not Reportable 11/24/17 05:42 Evangelina Rods Not Reportable 11/24/17 05:42 Platelet Estimate Appears normal 11/24/17 05:42 Clumped Platelets Not Reportable 11/24/17 05:42 Plt Clumps, EDTA Not Reportable 11/24/17 05:42 Large Platelets Not Reportable 11/24/17 05:42 Giant Platelets Not Reportable 11/24/17 05:42 Platelet Satelliting Not Reportable 11/24/17 05:42 Plt Morphology Comment Not Reportable 11/24/17 05:42 RBC Morphology Not Reportable 11/24/17 05:42 Dimorphic RBCs Not Reportable 11/24/17 05:42 Polychromasia Not Reportable 11/24/17 05:42 Hypochromasia Not Reportable 11/24/17 05:42 Poikilocytosis Not Reportable 11/24/17 05:42 Anisocytosis Few 11/24/17 05:42 Microcytosis Not Reportable 11/24/17 05:42 Macrocytosis Not Reportable 11/24/17 05:42 Spherocytes Not Reportable 11/24/17 05:42 Pappenheimer Bodies Not Reportable 11/24/17 05:42 Sickle Cells Not Reportable 11/24/17 05:42 Target Cells Few 11/24/17 05:42 Tear Drop Cells Not Reportable 11/24/17 05:42 Ovalocytes Not Reportable 11/24/17 05:42 Stomatocytes Few 11/18/17 04:34 Helmet Cells Not Reportable 11/24/17 05:42 Dukes-Hackett Bodies Not Reportable 11/24/17 05:42 [place] Rings Not Reportable 11/24/17 05:42 [place] Cells Not Reportable 11/24/17 05:42 Bite Cells Not Reportable 11/24/17 05:42 Crenated Cell Not Reportable 11/24/17 05:42 Elliptocytes Not Reportable 11/24/17 05:42 Acanthocytes (Spur) Not Reportable 11/24/17 05:42 Rouleaux Not Reportable 11/24/17 05:42 Hemoglobin C Crystals Not Reportable 11/24/17 05:42 Schistocytes Not Reportable 11/24/17 05:42 Malaria parasites Not Reportable 11/24/17 05:42 [place] Bodies Not Reportable 11/24/17 05:42 Hem Pathologist Commnt No 11/24/17 05:42 PT 16.7 Sec. (12.2-14.9) H 11/18/17 04:34 INR 1.30 (0.87-1.13) H 11/18/17 04:34 APTT 31.7 Sec. (24.2-36.6) 11/12/17 00:23 POC ABG pH 7.505 (7.35-7.45) H 11/23/17 04:56 POC ABG pCO2 26.3 (35-45) L 11/23/17 04:56 POC ABG pO2 100 (80-105) 11/23/17 04:56 POC ABG HCO3 20.8 11/23/17 04:56 POC ABG Total CO2 22 11/23/17 04:56 POC ABG O2 Sat 98 11/23/17 04:56 POC ABG Base Excess -2 11/23/17 04:56 FiO2 30 % 11/23/17 04:56 Sodium 149 mmol/L (137-145) H 11/24/17 05:42 Potassium 2.8 mmol/L (3.6-5.0) L* D 11/24/17 05:42 Chloride 113.9 mmol/L (98-107) H 11/24/17 05:42 Carbon Dioxide 19 mmol/L (22-30) L 11/24/17 05:42 Anion Gap 19 mmol/L 11/24/17 05:42 BUN 31 mg/dL (9-20) H 11/24/17 05:42 Creatinine 2.3 mg/dL (0.8-1.5) H 11/24/17 05:42 Estimated GFR 34 ml/min 11/24/17 05:42 BUN/Creatinine Ratio 13 % 11/24/17 05:42 Glucose 103 mg/dL (75-100) H 11/24/17 05:42 POC Glucose 180 (70-105) H 11/24/17 17:22 Lactic Acid 5.20 mmol/L (0.7-2.0) H* 11/24/17 08:27 Calcium 5.3 mg/dL (8.4-10.2) L* D 11/24/17 05:42 Magnesium 1.30 mg/dL (1.7-2.3) L 11/24/17 05:42 Total Bilirubin 1.10 mg/dL (0.1-1.2) 11/11/17 23:20 AST 27 units/L (5-40) 11/11/17 23:20 ALT 40 units/L (7-56) 11/11/17 23:20 Alkaline Phosphatase 90 units/L (35-129) 11/11/17 23:20 Total Creatine Kinase 84 units/L (55-170) 11/12/17 20:03 CK-MB (CK-2) < 1.0 ng/mL (0.0-4.0) 11/12/17 20:03 CK-MB (CK-2) Rel Index 1.1 (0-4) 11/12/17 20:03 Troponin T 0.098 ng/mL (0.00-0.029) H 11/12/17 Unknown C-Reactive Protein 25.70 mg/dL (0.00-1.30) H 11/11/17 23:20 NT-Pro-B Natriuret Pep 792.4 pg/mL (0-900) 11/11/17 23:20 Total Protein 6.5 g/dL (6.3-8.2) 11/11/17 23:20 Albumin 2.5 g/dL (3.9-5) L 11/11/17 23:20 Albumin/Globulin Ratio 0.6 % 11/11/17 23:20 Triglycerides 86 mg/dL (2-149) 11/11/17 23:20 Cholesterol 82 mg/dL (50-199) 11/11/17 23:20 LDL Cholesterol Direct 42 mg/dL (50-130) L 11/11/17 23:20 HDL Cholesterol 24 mg/dL (40-59) L 11/11/17 23:20 Cholesterol/HDL Ratio 3.41 % 11/11/17 23:20 Lipase 30 units/L (13-60) 11/11/17 23:20 Urine Color Nicole (Yellow) 11/11/17 23:09 Urine Turbidity Cloudy (Clear) 11/11/17 23:09 Urine pH 5.0 (5.0-7.0) 11/11/17 23:09 Ur Specific [place] 1.025 (1.003-1.030) 11/11/17 23:09 Urine Protein 100 mg/dl mg/dL (Negative) 11/11/17 23:09 Urine Glucose (UA) 50 mg/dL (Negative) 11/11/17 23:09 Urine Ketones Neg mg/dL (Negative) 11/11/17 23:09 Urine Blood Neg (Negative) 11/11/17 23:09 Urine Nitrite Neg (Negative) 11/11/17 23:09 Urine Bilirubin Neg (Negative) 11/11/17 23:09 Urine Urobilinogen 4.0 mg/dL (<2.0) 11/11/17 23:09 Ur Leukocyte Esterase Neg (Negative) 11/11/17 23:09 Urine WBC (Auto) 5.0 /HPF (0.0-6.0) 11/11/17 23:09 Urine RBC (Auto) 4.0 /HPF (0.0-6.0) 11/11/17 23:09 Urine Bacteria (Auto) 3+ /HPF (Negative) 11/11/17 23:09 Amorphous Crystals 3+ 11/11/17 23:09 Hyaline Casts 76 /LPF 11/11/17 23:09 Urine Mucus 2+ /HPF 11/11/17 23:09 Hepatitis A IgM Ab Non-reactive (NonReactive) 11/22/17 19:45 Hep Bs Antigen Non-reactive (Negative) 11/22/17 19:45 Hep B Core IgM Ab Non-reactive (NonReactive) 11/22/17 19:45 Hepatitis C Antibody Reactive (NonReactive) A 11/22/17 19:45 Blood Type A POSITIVE 11/24/17 08:27 Antibody Screen Negative 11/24/17 08:27 Crossmatch See Detail 11/24/17 08:27
--- NOTE | 2017-11-24 19:24 | Progress Note ---
Assessment and Plan - Patient Problems (1) Ventilator dependence Current Visit: Yes Status: Acute (2) Acute respiratory failure with hypoxemia Current Visit: Yes Status: Acute (3) Respiratory failure Current Visit: No Status: Acute (4) Tracheostomy status Current Visit: Yes Status: Acute Subjective Date of service: 11/24/17 Principal diagnosis: GI bleed Interval history: POD #4 Pt. resting comfortably, sedated Objective - Constitutional Vitals: Vital Signs - 12hr 11/24/17 11/24/17 11/24/17 07:30 08:00 08:30 Temperature 98.3 F Pulse Rate 98 H 76 73 Pulse Rate [ 82 Right From Monitor] Respiratory 18 20 20 Rate Blood Pressure 133/56 111/56 100/50 O2 Sat by Pulse 100 100 99 Oximetry O2 Sat by Pulse Oximetry [ Assessment] O2 Sat by Pulse Oximetry [ Bilateral Throughout] 11/24/17 11/24/17 11/24/17 08:45 09:00 09:01 Temperature Pulse Rate 95 H 87 Pulse Rate [ Right From Monitor] Respiratory 20 Rate Blood Pressure 109/58 109/58 O2 Sat by Pulse 100 100 Oximetry O2 Sat by Pulse 100 Oximetry [ Assessment] O2 Sat by Pulse Oximetry [ Bilateral Throughout] 11/24/17 11/24/17 11/24/17 09:30 10:00 10:01 Temperature Pulse Rate 80 82 94 H Pulse Rate [ Right From Monitor] Respiratory 21 23 Rate Blood Pressure 105/52 108/62 O2 Sat by Pulse 100 100 Oximetry O2 Sat by Pulse Oximetry [ Assessment] O2 Sat by Pulse Oximetry [ Bilateral Throughout] 11/24/17 11/24/17 11/24/17 10:31 11:00 11:31 Temperature Pulse Rate 95 H 80 76 Pulse Rate [ Right From Monitor] Respiratory 26 H 20 20 Rate Blood Pressure 108/62 98/56 122/61 O2 Sat by Pulse 100 100 100 Oximetry O2 Sat by Pulse Oximetry [ Assessment] O2 Sat by Pulse Oximetry [ Bilateral Throughout] 11/24/17 11/24/17 11/24/17 12:00 12:31 13:00 Temperature 98.2 F Pulse Rate 76 98 H 91 H Pulse Rate [ Right From Monitor] Respiratory 17 21 24 Rate Blood Pressure 113/59 147/73 129/69 O2 Sat by Pulse 100 100 99 Oximetry O2 Sat by Pulse Oximetry [ Assessment] O2 Sat by Pulse Oximetry [ Bilateral Throughout] 11/24/17 11/24/17 11/24/17 13:30 13:35 13:45 Temperature 98.2 F 98.2 F Pulse Rate 93 H 89 88 Pulse Rate [ Right From Monitor] Respiratory 21 23 Rate Blood Pressure 136/70 137/68 116/59 O2 Sat by Pulse 100 100 Oximetry O2 Sat by Pulse Oximetry [ Assessment] O2 Sat by Pulse 100 Oximetry [ Bilateral Throughout] 11/24/17 11/24/17 11/24/17 14:00 14:04 14:16 Temperature 98.2 F Pulse Rate 87 83 81 Pulse Rate [ Right From Monitor] Respiratory 21 23 Rate Blood Pressure 112/67 112/67 110/63 O2 Sat by Pulse 100 100 Oximetry O2 Sat by Pulse Oximetry [ Assessment] O2 Sat by Pulse Oximetry [ Bilateral Throughout] 11/24/17 11/24/17 11/24/17 14:19 14:23 14:30 Temperature 98.0 F 98.0 F Pulse Rate 68 88 Pulse Rate [ Right From Monitor] Respiratory 23 21 17 Rate Blood Pressure 110/63 123/67 123/67 O2 Sat by Pulse 100 100 100 Oximetry O2 Sat by Pulse Oximetry [ Assessment] O2 Sat by Pulse Oximetry [ Bilateral Throughout] 11/24/17 11/24/17 11/24/17 14:45 15:00 15:09 Temperature Pulse Rate 82 77 77 Pulse Rate [ Right From Monitor] Respiratory 21 Rate Blood Pressure 107/67 119/64 119/64 O2 Sat by Pulse 100 100 Oximetry O2 Sat by Pulse Oximetry [ Assessment] O2 Sat by Pulse Oximetry [ Bilateral Throughout] 11/24/17 11/24/17 11/24/17 15:15 15:30 15:59 Temperature Pulse Rate 68 101 H Pulse Rate [ Right From Monitor] Respiratory 16 Rate Blood Pressure 115/63 108/81 O2 Sat by Pulse 100 Oximetry O2 Sat by Pulse 97 Oximetry [ Assessment] O2 Sat by Pulse Oximetry [ Bilateral Throughout] 11/24/17 11/24/17 11/24/17 16:00 16:15 16:30 Temperature 98.6 F Pulse Rate 90 94 H 101 H Pulse Rate [ Right From Monitor] Respiratory 18 26 H Rate Blood Pressure 105/64 127/72 139/77 O2 Sat by Pulse 100 100 Oximetry O2 Sat by Pulse Oximetry [ Assessment] O2 Sat by Pulse Oximetry [ Bilateral Throughout] 11/24/17 11/24/17 11/24/17 16:43 17:00 17:30 Temperature Pulse Rate 84 87 Pulse Rate [ Right From Monitor] Respiratory 17 16 Rate Blood Pressure 121/65 120/65 O2 Sat by Pulse 100 100 Oximetry O2 Sat by Pulse Oximetry [ Assessment] O2 Sat by Pulse 100 Oximetry [ Bilateral Throughout] 11/24/17 11/24/17 18:00 18:30 Temperature Pulse Rate 79 82 Pulse Rate [ Right From Monitor] Respiratory 16 14 Rate Blood Pressure 107/59 98/53 O2 Sat by Pulse 100 100 Oximetry O2 Sat by Pulse Oximetry [ Assessment] O2 Sat by Pulse Oximetry [ Bilateral Throughout] General appearance: Present: no acute distress - EENT Eyes: PERRL ENT: poor dentition, other (mucoid slightly turbid saliva, improved from yesterday) Ears: bilateral: other (pinna w/o breakdown) - Neck Neck: supple, other (stoma clean, sutures intact, drainage resolved) - Respiratory Respiratory effort: labored, other (on vent.) - Breasts Breasts: deferred - Cardiovascular Rhythm: regular Heart Sounds: Present: S1 & S2 Extremities: no ischemia Extremity abnormal: other (edema decreased) - Gastrointestinal General gastrointestinal: Present: soft, non-tender - Genitourinary Male genitourinary: deferred - Integumentary Integumentary: clear, warm, dry - Musculoskeletal Musculoskeletal: other (sedated) - Neurologic Neurologic: other (sedated) - Psychiatric Psychiatric: other (sedated) - Labs CBC & Chem 7: 11/24/17 05:42 11/24/17 05:42 Labs: Abnormal lab results 11/23/17 11/24/17 11/24/17 Range/Units 23:41 05:42 05:42 WBC 21.5 H (4.5-11.0) K/mm3 RBC 2.48 L (3.65-5.03) M/mm3 Hgb 6.2 L (11.8-15.2) gm/dl Hct 20.3 L D (35.5-45.6) % MCV 82 L (84-94) fl MCH 25 L (28-32) pg MCHC 31 L (32-34) % RDW 18.9 H (13.2-15.2) % Seg Neuts % (Manual) 94.0 H (40.0-70.0) % Lymphocytes % (Manual) 3.0 L (13.4-35.0) % Seg Neutrophils # Man 20.2 H (1.8-7.7) K/mm3 Lymphocytes # (Manual) 0.6 L (1.2-5.4) K/mm3 Sodium 149 H (137-145) mmol/L Potassium 2.8 L* D (3.6-5.0) mmol/L Chloride 113.9 H (98-107) mmol/L Carbon Dioxide 19 L (22-30) mmol/L BUN 31 H (9-20) mg/dL Creatinine 2.3 H (0.8-1.5) mg/dL Glucose 103 H (75-100) mg/dL POC Glucose 133 H (70-105) Lactic Acid (0.7-2.0) mmol/L Calcium 5.3 L* D (8.4-10.2) mg/dL Magnesium 1.30 L (1.7-2.3) mg/dL Crossmatch 11/24/17 11/24/17 11/24/17 Range/Units 05:42 08:27 08:27 WBC (4.5-11.0) K/mm3 RBC (3.65-5.03) M/mm3 Hgb (11.8-15.2) gm/dl Hct (35.5-45.6) % MCV (84-94) fl MCH (28-32) pg MCHC (32-34) % RDW (13.2-15.2) % Seg Neuts % (Manual) (40.0-70.0) % Lymphocytes % (Manual) (13.4-35.0) % Seg Neutrophils # Man (1.8-7.7) K/mm3 Lymphocytes # (Manual) (1.2-5.4) K/mm3 Sodium (137-145) mmol/L Potassium (3.6-5.0) mmol/L Chloride (98-107) mmol/L Carbon Dioxide (22-30) mmol/L BUN (9-20) mg/dL Creatinine (0.8-1.5) mg/dL Glucose (75-100) mg/dL POC Glucose (70-105) Lactic Acid 5.40 H* 5.20 H* (0.7-2.0) mmol/L Calcium (8.4-10.2) mg/dL Magnesium (1.7-2.3) mg/dL Crossmatch See Detail 11/24/17 11/24/17 Range/Units 12:13 17:22 WBC (4.5-11.0) K/mm3 RBC (3.65-5.03) M/mm3 Hgb (11.8-15.2) gm/dl Hct (35.5-45.6) % MCV (84-94) fl MCH (28-32) pg MCHC (32-34) % RDW (13.2-15.2) % Seg Neuts % (Manual) (40.0-70.0) % Lymphocytes % (Manual) (13.4-35.0) % Seg Neutrophils # Man (1.8-7.7) K/mm3 Lymphocytes # (Manual) (1.2-5.4) K/mm3 Sodium (137-145) mmol/L Potassium (3.6-5.0) mmol/L Chloride (98-107) mmol/L Carbon Dioxide (22-30) mmol/L BUN (9-20) mg/dL Creatinine (0.8-1.5) mg/dL Glucose (75-100) mg/dL POC Glucose 138 H 180 H (70-105) Lactic Acid (0.7-2.0) mmol/L Calcium (8.4-10.2) mg/dL Magnesium (1.7-2.3) mg/dL Crossmatch
[2017-11-24 22:37] LABS: Hematocrit 27.1 % (35.5-45.6); Hemoglobin 8.8 gm/dl (11.8-15.2); Mean Corpuscular HGB Conc 32 % (32-34); Mean Corpuscular Hemoglobin 26 pg (28-32); Mean Corpuscular Volume 82 fl (84-94); Platelet Count 312 K/mm3 (140-440); Red Blood Count 3.32 M/mm3 (3.65-5.03); Red Cell Distribution Width 17.3 % (13.2-15.2)
--- NOTE | 2017-11-24 23:02 | Cat Scan Report ---
FINAL REPORT PROCEDURE: CT ABDOMEN PELVIS WO CON TECHNIQUE: Computerized axial tomography of the abdomen and pelvis was performed without intravenous contrast. This study is performed without intravascular contrast material and its sensitivity for abdominal and pelvic pathology, including neoplasms, inflammation, abscess, free fluid, thrombosis, arterial dissection and infarction, is reduced compared with a contrast enhanced study. HISTORY: Sepsis, GI bleeding, Lactic acidosis COMPARISON: No prior studies are available for comparison. FINDINGS: There is a large amount of ascites. There is a percutaneous gastrostomy tube. However, the tube is not within the stomach. Contrast is injected into the tube which accumulates in the greater omentum and the left pericolic gutter. There are pockets of air within the fluid collection associated with the gastrostomy tube. Liver, gallbladder, pancreas and spleen are within normal limits. There are no kidney stones. There is a 2 centimeter left kidney cysts. There is no bowel obstruction, colitis or enteritis. The appendix is not identified. Urinary bladder is unremarkable. There is a left common femoral vein central venous catheter. The tip is in the inferior vena cava. Images of the lung bases demonstrate bibasilar atelectasis and infiltrate. The bony structures are within normal limits. IMPRESSION: There is a large amount of ascites. There is a percutaneous gastrostomy tube. However, the tube is not within the stomach. The tube terminates in the region of the greater omentum. Contrast is injected into the tube which accumulates in the greater omentum and the left pericolic gutter. There are pockets of air within the fluid collection associated with the gastrostomy tube. There is a left common femoral vein central venous catheter. The tip is in the inferior vena cava. Images of the lung bases demonstrate bibasilar atelectasis and infiltrate. .
[2017-11-24 23:09] LABS: Albumin 1.8 g/dL (3.9-5); Calcium 7.5 mg/dL (8.4-10.2)
[2017-11-25] MEDS: PROTONIX 80 MG in NACL 0.9% 100 ML IV SCH ×2 (00:17→11:28)
[2017-11-25 05:19] LABS: Calcium 7.4 mg/dL (8.4-10.2)
[2017-11-25 05:20] LABS: Calcium 7.5 mg/dL (8.4-10.2)
[2017-11-25] MEDS: ZOSYN/NS 2.25 GM/50ML 2.25 GM/50 ML BAG IV SCH ×3 (05:45→22:00)
[2017-11-25 05:47] LABS: Hematocrit 28.3 % (35.5-45.6); Hemoglobin 9.1 gm/dl (11.8-15.2); Mean Corpuscular Volume 81 fl (84-94); Red Blood Count 3.48 M/mm3 (3.65-5.03)
[2017-11-25 05:48] LABS: Mean Corpuscular HGB Conc 32 % (32-34); Mean Corpuscular Hemoglobin 26 pg (28-32); Mean Platelet Volume 9.8 fl (6-12); Platelet Count 309 K/mm3 (140-440); Red Cell Distribution Width 17.4 % (13.2-15.2)
--- NOTE | 2017-11-25 08:55 | Progress Note ---
Assessment and Plan Assessment : * Acute kidney injury. Most likely ATN . patient has been initiated on renal replacement therapy on 11/23/17 * Respiratory failure * Metabolic acidosis * Hypokalemia * Severe anemia * Carotid artery disease . s/p carotid endarterectomy * Hypocalcemia Recommendations * Uneventful hemodialysis yesterday * Hypokalemia and hypocalcemia much improved * S/P PRBC Transfusion with dialysis * Acidosis has been corrected . Off bicarbonate * easley catheter has been removed . Check bladder scan * Prognosis remains very poor * Hold dialysis for today . Reassess tomorrow Subjective Date of service: 11/25/17 Principal diagnosis: GI bleed Interval history: patient remains on the ventilator via trache . On 30% FiO2 . Unresponsive . Remains off pressors Objective - Vital Signs Vital signs: Vital Signs - 12hr 11/24/17 11/24/17 11/24/17 21:00 21:30 21:37 Temperature Pulse Rate 78 86 90 Pulse Rate [ Right From Monitor] Respiratory 15 18 Rate Blood Pressure 102/57 111/62 116/62 O2 Sat by Pulse 100 100 100 Oximetry O2 Sat by Pulse Oximetry [ Assessment] 11/24/17 11/24/17 11/24/17 22:00 22:29 22:31 Temperature Pulse Rate 83 94 H Pulse Rate [ Right From Monitor] Respiratory 19 Rate Blood Pressure 111/56 111/56 O2 Sat by Pulse 83 L 98 Oximetry O2 Sat by Pulse Oximetry [ Assessment] 11/24/17 11/24/17 11/24/17 22:50 23:00 23:01 Temperature Pulse Rate 93 H 88 78 Pulse Rate [ Right From Monitor] Respiratory 12 18 24 Rate Blood Pressure 111/62 99/54 99/54 O2 Sat by Pulse 99 99 99 Oximetry O2 Sat by Pulse Oximetry [ Assessment] 11/24/17 11/25/17 11/25/17 23:30 00:00 00:30 Temperature 98.8 F Pulse Rate 80 97 H 94 H Pulse Rate [ 78 Right From Monitor] Respiratory 17 24 23 Rate Blood Pressure 98/59 145/66 132/70 O2 Sat by Pulse 100 100 100 Oximetry O2 Sat by Pulse Oximetry [ Assessment] 11/25/17 11/25/17 11/25/17 00:48 01:00 01:30 Temperature Pulse Rate 77 82 Pulse Rate [ Right From Monitor] Respiratory 18 21 Rate Blood Pressure 103/58 116/56 O2 Sat by Pulse 100 100 Oximetry O2 Sat by Pulse 100 Oximetry [ Assessment] 11/25/17 11/25/17 11/25/17 02:00 02:30 03:00 Temperature Pulse Rate 87 85 75 Pulse Rate [ Right From Monitor] Respiratory 18 18 15 Rate Blood Pressure 116/61 107/62 103/55 O2 Sat by Pulse 100 100 100 Oximetry O2 Sat by Pulse Oximetry [ Assessment] 11/25/17 11/25/17 11/25/17 03:30 03:43 04:00 Temperature 98.5 F Pulse Rate 76 89 Pulse Rate [ 78 Right From Monitor] Respiratory 20 23 Rate Blood Pressure 109/57 120/63 O2 Sat by Pulse 100 100 Oximetry O2 Sat by Pulse Oximetry [ Assessment] 11/25/17 11/25/17 11/25/17 04:30 05:00 05:11 Temperature Pulse Rate 77 87 85 Pulse Rate [ Right From Monitor] Respiratory 12 20 Rate Blood Pressure 104/57 127/71 127/71 O2 Sat by Pulse 100 99 97 Oximetry O2 Sat by Pulse Oximetry [ Assessment] 11/25/17 11/25/17 11/25/17 05:31 06:00 06:30 Temperature Pulse Rate 85 80 79 Pulse Rate [ Right From Monitor] Respiratory 25 H 20 18 Rate Blood Pressure 135/68 91/53 95/57 O2 Sat by Pulse 100 100 99 Oximetry O2 Sat by Pulse Oximetry [ Assessment] 11/25/17 11/25/17 11/25/17 07:01 07:30 08:00 Temperature 98.7 F Pulse Rate 92 H 81 85 Pulse Rate [ 94 H Right From Monitor] Respiratory 22 17 18 Rate Blood Pressure 124/74 97/58 100/58 O2 Sat by Pulse 99 98 99 Oximetry O2 Sat by Pulse Oximetry [ Assessment] - General Appearance General appearance: well-developed, well-nourished, appears stated age, intubated EENT: PERRL, mucous membranes moist Neck: other (tracheostomy in place ) Respiratory: Present: [facility]: regular, normal heart rate, S1S2, no murmurs Gastrointestinal: normal, normoactive bowel sounds, other (PEG tube in place ) Integumentary: other (1+ edema. Left femoral vascath ) - Lab 11/25/17 04:19 11/25/17 04:19 Most recent lab results Calcium 7.5 mg/dL (8.4-10.2) L 11/25/17 04:19 Magnesium 2.00 mg/dL (1.7-2.3) 11/24/17 21:53
[2017-11-25] MEDS: SODIUM CHLORIDE FLUSH SYRINGE 10 ML IV SCH (09:46)
--- NOTE | 2017-11-25 11:38 | Gastroenterology Progress Note ---
<LUCIO DAMIAN - Last Filed: 11/25/17 11:45> Assessment and Plan 1.GI bleed 2.melena 3.acute respiratory failure (s/p trach) 3.septic shock 4.pneumonia 5.recent CVA (s/p CEA) -HGB 9.1-s/p transfusion of 2 units PRBCs yesterday -continue to monitor H/H and transfuse as needed -no active signs of bleeding overnight or this am per nursing -blood thinning medications on hold -EGD/PEG 11/06 -EGD 11/18 that revealed a 4-5cm HH, gastritis, and 10mm linear ulcer in proximal lesser curvature with erythema but no bleeding stigmata -no plans for repeat EGD at this time, unless overt bleeding develops -continue PPI -repeat CT performed yesterday due to persistent elevated lactic acid, leukocytosis/fever, and recent episode of hypotension with results showing ascites and G-tube not within the stomach with contrast accumulating in the greater omentum and the left pericolic gutter -recommend surgery consult due to above results -continue to hold TFs -PEG tube will most likely need to be removed but will defer to surgery -consider alternative method of nutrition at this time -continue supportive care -further recommendations to follow Subjective Date of service: 11/25/17 Principal diagnosis: GI bleed Interval history: No active signs of bleeding overnight or this am per nursing. Objective - Constitutional Vitals: Temp Pulse Resp BP Pulse Ox 98.7 F 75 20 106/60 100 11/25/17 08:00 11/25/17 10:00 11/25/17 10:00 11/25/17 10:00 11/25/17 10:00 General appearance: no acute distress, other (sedated on vent) - Respiratory Respiratory: bilateral: other (coarse) - Cardiovascular Rhythm: regular Heart Sounds: Present: S1 & S2 - Gastrointestinal General gastrointestinal: Present: distended, hypoactive bowel sounds, other (+ PEG) - Labs CBC & Chem 7: 11/25/17 04:19 11/25/17 04:19 Labs: Laboratory Results - last 24 hr 11/24/17 11/24/17 11/24/17 08:27 12:13 17:22 WBC RBC Hgb Hct MCV MCH MCHC RDW Plt Count Sodium Potassium Chloride Carbon Dioxide Anion Gap BUN Creatinine Estimated GFR BUN/Creatinine Ratio Glucose POC Glucose 138 H 180 H Calcium Magnesium Total Bilirubin AST ALT Alkaline Phosphatase Total Protein Albumin Albumin/Globulin Ratio Blood Type A POSITIVE Antibody Screen Negative Crossmatch See Detail 11/24/17 11/24/17 11/24/17 21:53 21:53 23:28 WBC 23.0 H RBC 3.32 L Hgb 8.8 L Hct 27.1 L D MCV 82 L MCH 26 L MCHC 32 RDW 17.3 H Plt Count 312 Sodium 139 D Potassium 4.1 D Chloride 96.3 L Carbon Dioxide 27 D Anion Gap 20 BUN 28 H Creatinine 2.3 H Estimated GFR 34 BUN/Creatinine Ratio 12 Glucose 125 H POC Glucose 111 H Calcium 7.5 L D Magnesium 2.00 Total Bilirubin 0.90 AST 170 H ALT 179 H Alkaline Phosphatase 175 H Total Protein 5.5 L Albumin 1.8 L Albumin/Globulin Ratio 0.5 Blood Type Antibody Screen Crossmatch 11/25/17 11/25/17 11/25/17 04:19 04:19 04:19 WBC 22.5 H RBC 3.48 L Hgb 9.1 L Hct 28.3 L MCV 81 L MCH 26 L MCHC 32 RDW 17.4 H Plt Count 309 Sodium 141 141 Potassium 4.2 4.2 Chloride 98.4 98.9 Carbon Dioxide 24 25 Anion Gap 23 21 BUN 31 H 31 H Creatinine 2.6 H 2.6 H Estimated GFR 30 30 BUN/Creatinine Ratio 12 12 Glucose 101 H 101 H POC Glucose Calcium 7.4 L 7.5 L Magnesium Total Bilirubin AST ALT Alkaline Phosphatase Total Protein Albumin Albumin/Globulin Ratio Blood Type Antibody Screen Crossmatch 11/25/17 05:39 WBC RBC Hgb Hct MCV MCH MCHC RDW Plt Count Sodium Potassium Chloride Carbon Dioxide Anion Gap BUN Creatinine Estimated GFR BUN/Creatinine Ratio Glucose POC Glucose 99 Calcium Magnesium Total Bilirubin AST ALT Alkaline Phosphatase Total Protein Albumin Albumin/Globulin Ratio Blood Type Antibody Screen Crossmatch <PATRICK LOZANO R - Last Filed: 11/25/17 17:57> Assessment and Plan Pt seen and examined. G-tube likely migrated out of stomach over time, allowing gastric wall to seal and prevent free leak of gastric contents into peritoneum, based on CT findings and clinical course. Discussed with Dr. Noble regarding options of exploratory laparatomy vs drainage and conservative management, which would be less invasive as long as pt does well clinically. Will defer to Surgical opinion. Objective - Constitutional Vitals: Temp Pulse Resp BP Pulse Ox 97.2 F L 71 25 H 127/65 99 11/25/17 16:00 11/25/17 17:30 11/25/17 17:30 11/25/17 17:30 11/25/17 17:30 - Labs CBC & Chem 7: 11/25/17 04:19 11/25/17 04:19 Labs: Laboratory Results - last 24 hr 11/24/17 11/24/17 11/24/17 21:53 21:53 23:28 WBC 23.0 H RBC 3.32 L Hgb 8.8 L Hct 27.1 L D MCV 82 L MCH 26 L MCHC 32 RDW 17.3 H Plt Count 312 Sodium 139 D Potassium 4.1 D Chloride 96.3 L Carbon Dioxide 27 D Anion Gap 20 BUN 28 H Creatinine 2.3 H Estimated GFR 34 BUN/Creatinine Ratio 12 Glucose 125 H POC Glucose 111 H Calcium 7.5 L D Magnesium 2.00 Total Bilirubin 0.90 AST 170 H ALT 179 H Alkaline Phosphatase 175 H Total Protein 5.5 L Albumin 1.8 L Albumin/Globulin Ratio 0.5 11/25/17 11/25/17 11/25/17 04:19 04:19 04:19 WBC 22.5 H RBC 3.48 L Hgb 9.1 L Hct 28.3 L MCV 81 L MCH 26 L MCHC 32 RDW 17.4 H Plt Count 309 Sodium 141 141 Potassium 4.2 4.2 Chloride 98.4 98.9 Carbon Dioxide 24 25 Anion Gap 23 21 BUN 31 H 31 H Creatinine 2.6 H 2.6 H Estimated GFR 30 30 BUN/Creatinine Ratio 12 12 Glucose 101 H 101 H POC Glucose Calcium 7.4 L 7.5 L Magnesium Total Bilirubin AST ALT Alkaline Phosphatase Total Protein Albumin Albumin/Globulin Ratio 11/25/17 11/25/17 11/25/17 05:39 11:36 17:51 WBC RBC Hgb Hct MCV MCH MCHC RDW Plt Count Sodium Potassium Chloride Carbon Dioxide Anion Gap BUN Creatinine Estimated GFR BUN/Creatinine Ratio Glucose POC Glucose 99 100 90 Calcium Magnesium Total Bilirubin AST ALT Alkaline Phosphatase Total Protein Albumin Albumin/Globulin Ratio
--- NOTE | 2017-11-25 15:53 | Progress Note ---
Assessment and Plan Imp: 1. CVA 2. Hemiparesis 3. Aspiration pneumonitis related to above 4. Sepsis 5. DARYA 6. s/p Trach/PEG Rec: 1. Volume removal given anasarca although "ascites" on CT a/p may actually be tube feeds 2. Cont. Zosyn given CT a/p results 3. D/c TFs; PEG not in stomach, await GI recs 4. SCDs; GI PPx 5. PSV today, rest on ACVC tonight, Tpiece trial in AM (d/w RT personally); trach will need to be permanent for secretion clearance 6. Monitor off pressors 7. Monitor H/H 8. Insurance denies LTAC coverage Long-term prognosis poor; no family present CCt 31 minutes Subjective Date of service: 11/25/17 Principal diagnosis: GI bleed Interval history: Tolerating PSV. Off sedation, minimally arousable. Off pressors. Active Medications Acetaminophen (Tylenol) 650 mg [place] Q4H PRN PRN Reason: Pain MILD(1-3)/Fever >100.5/CABELLO Last Admin: 11/22/17 09:07 Dose: 650 mg Lipase/Protease/Amylase (Pancreaze Dr 10,500 Unit) 1 each FEEDTUBE PRN PRN PRN Reason: For Clogged Feeding Tube Fentanyl Citrate (Fentanyl Drip Premix) 2,000 mcg in 100 mls @ 3.969 mls/hr IV TITR [facility]; Protocol Last Titration: 11/12/17 04:07 Dose: 5 mcg/kg/hr, 19.845 mls/hr Propofol (Diprivan 10 Mg/Ml) 1,000 mg in 100 mls @ 2.381 mls/hr IV TITR [facility]; Protocol Last Titration: 11/17/17 19:32 Dose: 10 mcg/kg/min, 4.763 mls/hr Norepinephrine 8 mg/ Sodium (Chloride) 250 mls @ 3.75 mls/hr IV TITR [facility]; Protocol Last Titration: 11/23/17 04:00 Dose: 0 mcg/min, 0 mls/hr Phenylephrine HCl 100 mg/ (Sodium Chloride) 100 mls @ 3 mls/hr IV TITR [facility]; Protocol Last Titration: 11/22/17 00:10 Dose: 0 mcg/min, 0 mls/hr Piperacillin Sod/Tazobactam Sod (Zosyn/Ns 2.25 Gm/50ml) 2.25 gm in 50 mls @ 100 mls/hr IV Q8HR [facility]; Protocol Stop: 11/28/17 23:59 Last Admin: 11/25/17 13:55 Dose: 100 mls/hr Sodium Chloride (Nacl 0.9%) 100 mls @ 999 mls/hr IV TIM PRN PRN Reason: Hypotension Pantoprazole Sodium 80 mg/ (Sodium Chloride) 100 mls @ 10 mls/hr IV DIRECT [facility] Last Admin: 11/25/17 11:28 Dose: 8 mg/hr, 10 mls/hr Ondansetron HCl (Zofran) 4 mg IV Q8H PRN PRN Reason: Nausea And Vomiting Simple Syrup (Simple Syrup) 15 ml FEEDTUBE PRN PRN PRN Reason: Hypoglycemia Last Admin: 11/21/17 11:26 Dose: 15 ml Simple Syrup (Simple Syrup) 30 ml FEEDTUBE PRN PRN PRN Reason: Hypoglycemia Sodium Bicarbonate (Sodium Bicarbonate) 325 mg FEEDTUBE PRN PRN PRN Reason: For Clogged Feeding Tube Sodium Chloride (Sodium Chloride Flush Syringe 10 Ml) 10 ml IV BID [facility] Last Admin: 11/25/17 09:46 Dose: 10 ml Sodium Chloride (Sodium Chloride Flush Syringe 10 Ml) 10 ml IV PRN PRN PRN Reason: LINE FLUSH Objective Vital Signs - 12hr 11/25/17 11/25/17 11/25/17 04:00 04:30 05:00 Temperature Pulse Rate 89 77 87 Pulse Rate [ 78 Right From Monitor] Respiratory 23 12 20 Rate Blood Pressure 120/63 104/57 127/71 O2 Sat by Pulse 100 100 99 Oximetry O2 Sat by Pulse Oximetry [ Assessment] 11/25/17 11/25/17 11/25/17 05:11 05:31 06:00 Temperature Pulse Rate 85 85 80 Pulse Rate [ Right From Monitor] Respiratory 25 H 20 Rate Blood Pressure 127/71 135/68 91/53 O2 Sat by Pulse 97 100 100 Oximetry O2 Sat by Pulse Oximetry [ Assessment] 11/25/17 11/25/17 11/25/17 06:30 07:01 07:30 Temperature Pulse Rate 79 92 H 81 Pulse Rate [ Right From Monitor] Respiratory 18 22 17 Rate Blood Pressure 95/57 124/74 97/58 O2 Sat by Pulse 99 99 98 Oximetry O2 Sat by Pulse Oximetry [ Assessment] 11/25/17 11/25/17 11/25/17 08:00 08:31 09:00 Temperature 98.7 F Pulse Rate 85 81 87 Pulse Rate [ 94 H Right From Monitor] Respiratory 18 18 21 Rate Blood Pressure 100/58 108/66 104/62 O2 Sat by Pulse 99 99 99 Oximetry O2 Sat by Pulse Oximetry [ Assessment] 11/25/17 11/25/17 11/25/17 09:05 09:11 09:12 Temperature Pulse Rate 97 H 77 Pulse Rate [ Right From Monitor] Respiratory 28 H Rate Blood Pressure 104/62 104/62 O2 Sat by Pulse 99 99 Oximetry O2 Sat by Pulse 99 Oximetry [ Assessment] 11/25/17 11/25/17 11/25/17 09:30 10:00 10:30 Temperature Pulse Rate 83 75 76 Pulse Rate [ Right From Monitor] Respiratory 26 H 20 25 H Rate Blood Pressure 113/67 106/60 117/62 O2 Sat by Pulse 100 100 100 Oximetry O2 Sat by Pulse Oximetry [ Assessment] 11/25/17 11/25/17 11/25/17 11:00 11:30 12:00 Temperature 98.5 F Pulse Rate 97 H 92 H 84 Pulse Rate [ 94 H Right From Monitor] Respiratory 26 H 32 H 24 Rate Blood Pressure 136/80 141/78 115/64 O2 Sat by Pulse 100 99 100 Oximetry O2 Sat by Pulse Oximetry [ Assessment] 11/25/17 11/25/17 11/25/17 12:30 13:00 13:30 Temperature Pulse Rate 91 H 76 76 Pulse Rate [ Right From Monitor] Respiratory 26 H 28 H 25 H Rate Blood Pressure 165/76 112/64 115/60 O2 Sat by Pulse 100 100 100 Oximetry O2 Sat by Pulse Oximetry [ Assessment] 11/25/17 11/25/17 14:00 15:38 Temperature Pulse Rate 77 88 Pulse Rate [ Right From Monitor] Respiratory 27 H 27 H Rate Blood Pressure 123/68 115/65 O2 Sat by Pulse 99 100 Oximetry O2 Sat by Pulse Oximetry [ Assessment] Constitutional: other (s/p trach, critically ill) Eyes: non-icteric ENT: oropharynx moist Neck: supple Effort: normal Ascultation: Bilateral: other (coarse BS bilaterally) Cardiovascular: regular rate and rhythm (no mrg) Gastrointestinal: normoactive bowel sounds, soft, non-tender, non-distended Integumentary: normal Extremities: no cyanosis, anasarca Neurologic: other (L hemiparesis, sedated) Psychiatric: other (unable to assess) CBC and BMP: 11/25/17 04:19 11/25/17 04:19 ABG, PT/INR, D-dimer: ABG POC ABG pH 7.505 (7.35-7.45) H 11/23/17 04:56 POC ABG pCO2 26.3 (35-45) L 11/23/17 04:56 POC ABG pO2 100 (80-105) 11/23/17 04:56 POC ABG HCO3 20.8 11/23/17 04:56 POC ABG Total CO2 22 11/23/17 04:56 POC ABG O2 Sat 98 11/23/17 04:56 PT/INR, D-dimer PT 16.7 Sec. (12.2-14.9) H 11/18/17 04:34 INR 1.30 (0.87-1.13) H 11/18/17 04:34 Abnormal lab findings: Abnormal Labs 11/11/17 11/11/17 11/11/17 23:18 23:20 23:20 WBC RBC Hgb 10.4 L Hct 32.6 L D MCV MCH 27 L MCHC RDW 17.4 H Plt Count 105 L Lymph % (Auto) [place] % (Auto) Lymph # [place] # Seg Neutrophils % Seg Neuts % (Manual) Lymphocytes % (Manual) 8.0 L Monocytes % (Manual) Nucleated RBC % 1.0 H Seg Neutrophils # Seg Neutrophils # Man Lymphocytes # (Manual) 0.7 L Monocytes # (Manual) PT INR POC ABG pH 7.550 H POC ABG pCO2 31.6 L POC ABG pO2 Sodium 146 H Potassium Chloride Carbon Dioxide BUN 26 H Creatinine 1.7 H D Glucose 133 H POC Glucose Lactic Acid Calcium Magnesium AST ALT Alkaline Phosphatase Troponin T 0.117 H* C-Reactive Protein Total Protein Albumin 2.5 L LDL Cholesterol Direct 42 L HDL Cholesterol 24 L Hepatitis C Antibody Crossmatch 11/11/17 11/12/17 11/12/17 23:20 00:23 00:23 WBC RBC Hgb Hct MCV MCH MCHC RDW Plt Count Lymph % (Auto) [place] % (Auto) Lymph # [place] # Seg Neutrophils % Seg Neuts % (Manual) Lymphocytes % (Manual) Monocytes % (Manual) Nucleated RBC % Seg Neutrophils # Seg Neutrophils # Man Lymphocytes # (Manual) Monocytes # (Manual) PT 16.7 H INR 1.28 H POC ABG pH POC ABG pCO2 POC ABG pO2 Sodium Potassium Chloride Carbon Dioxide BUN Creatinine Glucose POC Glucose Lactic Acid 3.20 H* Calcium Magnesium AST ALT Alkaline Phosphatase Troponin T C-Reactive Protein 25.70 H Total Protein Albumin LDL Cholesterol Direct HDL Cholesterol Hepatitis C Antibody Crossmatch 11/12/17 11/12/17 11/12/17 00:46 01:27 01:27 WBC RBC Hgb Hct MCV MCH MCHC RDW Plt Count Lymph % (Auto) [place] % (Auto) Lymph # [place] # Seg Neutrophils % Seg Neuts % (Manual) Lymphocytes % (Manual) Monocytes % (Manual) Nucleated RBC % Seg Neutrophils # Seg Neutrophils # Man Lymphocytes # (Manual) Monocytes # (Manual) PT INR POC ABG pH 7.495 H POC ABG pCO2 32.0 L POC ABG pO2 64 L Sodium Potassium Chloride Carbon Dioxide BUN Creatinine Glucose POC Glucose Lactic Acid 3.70 H* Calcium Magnesium AST ALT Alkaline Phosphatase Troponin T 0.096 H C-Reactive Protein Total Protein Albumin LDL Cholesterol Direct HDL Cholesterol Hepatitis C Antibody Crossmatch 11/12/17 11/12/17 11/12/17 03:21 04:50 06:27 WBC RBC Hgb Hct MCV MCH MCHC RDW Plt Count Lymph % (Auto) [place] % (Auto) Lymph # [place] # Seg Neutrophils % Seg Neuts % (Manual) Lymphocytes % (Manual) Monocytes % (Manual) Nucleated RBC % Seg Neutrophils # Seg Neutrophils # Man Lymphocytes # (Manual) Monocytes # (Manual) PT INR POC ABG pH POC ABG pCO2 POC ABG pO2 109 H Sodium Potassium Chloride Carbon Dioxide BUN Creatinine Glucose POC Glucose Lactic Acid 3.80 H* 2.20 H* Calcium Magnesium AST ALT Alkaline Phosphatase Troponin T C-Reactive Protein Total Protein Albumin LDL Cholesterol Direct HDL Cholesterol Hepatitis C Antibody Crossmatch 11/12/17 11/12/17 11/12/17 09:24 09:24 09:24 WBC RBC Hgb 10.4 L Hct 33.4 L MCV MCH MCHC RDW Plt Count Lymph % (Auto) [place] % (Auto) Lymph # [place] # Seg Neutrophils % Seg Neuts % (Manual) Lymphocytes % (Manual) Monocytes % (Manual) Nucleated RBC % Seg Neutrophils # Seg Neutrophils # Man Lymphocytes # (Manual) Monocytes # (Manual) PT INR POC ABG pH POC ABG pCO2 POC ABG pO2 Sodium Potassium Chloride Carbon Dioxide BUN Creatinine Glucose POC Glucose Lactic Acid 2.90 H* Calcium Magnesium AST ALT Alkaline Phosphatase Troponin T 0.091 H C-Reactive Protein Total Protein Albumin LDL Cholesterol Direct HDL Cholesterol Hepatitis C Antibody Crossmatch 11/12/17 11/12/17 11/12/17 12:56 20:03 Unknown WBC RBC Hgb Hct MCV MCH MCHC RDW Plt Count Lymph % (Auto) [place] % (Auto) Lymph # [place] # Seg Neutrophils % Seg Neuts % (Manual) Lymphocytes % (Manual) Monocytes % (Manual) Nucleated RBC % Seg Neutrophils # Seg Neutrophils # Man Lymphocytes # (Manual) Monocytes # (Manual) PT INR POC ABG pH POC ABG pCO2 POC ABG pO2 Sodium Potassium Chloride Carbon Dioxide BUN Creatinine Glucose POC Glucose Lactic Acid 3.60 H* Calcium Magnesium AST ALT Alkaline Phosphatase Troponin T 0.102 H* 0.156 H* D C-Reactive Protein Total Protein Albumin LDL Cholesterol Direct HDL Cholesterol Hepatitis C Antibody Crossmatch 11/12/17 11/13/17 11/13/17 Unknown 04:50 04:50 WBC 12.2 H RBC 3.51 L Hgb 9.3 L Hct 30.1 L MCV MCH 26 L MCHC 31 L RDW 18.0 H Plt Count 128 L Lymph % (Auto) 8.6 L [place] % (Auto) 11.1 H Lymph # 1.1 L [place] # 1.4 H Seg Neutrophils % 80.1 H Seg Neuts % (Manual) Lymphocytes % (Manual) Monocytes % (Manual) Nucleated RBC % Seg Neutrophils # 9.8 H Seg Neutrophils # Man Lymphocytes # (Manual) Monocytes # (Manual) PT INR POC ABG pH POC ABG pCO2 POC ABG pO2 Sodium 149 H Potassium 5.1 H Chloride 114.4 H Carbon Dioxide 18 L BUN 52 H Creatinine 3.3 H D Glucose 129 H POC Glucose Lactic Acid Calcium 7.9 L Magnesium AST ALT Alkaline Phosphatase Troponin T 0.098 H C-Reactive Protein Total Protein Albumin LDL Cholesterol Direct HDL Cholesterol Hepatitis C Antibody Crossmatch 11/13/17 11/13/17 11/14/17 04:51 09:34 04:21 WBC RBC Hgb Hct MCV MCH MCHC RDW Plt Count Lymph % (Auto) [place] % (Auto) Lymph # [place] # Seg Neutrophils % Seg Neuts % (Manual) Lymphocytes % (Manual) Monocytes % (Manual) Nucleated RBC % Seg Neutrophils # Seg Neutrophils # Man Lymphocytes # (Manual) Monocytes # (Manual) PT INR POC ABG pH POC ABG pCO2 30.1 L 29.8 L POC ABG pO2 135 H Sodium Potassium Chloride Carbon Dioxide BUN Creatinine Glucose POC Glucose Lactic Acid 2.10 H* Calcium Magnesium AST ALT Alkaline Phosphatase Troponin T C-Reactive Protein Total Protein Albumin LDL Cholesterol Direct HDL Cholesterol Hepatitis C Antibody Crossmatch 11/15/17 11/15/17 11/16/17 04:52 15:50 05:17 WBC RBC Hgb Hct MCV MCH MCHC RDW Plt Count Lymph % (Auto) [place] % (Auto) Lymph # [place] # Seg Neutrophils % Seg Neuts % (Manual) Lymphocytes % (Manual) Monocytes % (Manual) Nucleated RBC % Seg Neutrophils # Seg Neutrophils # Man Lymphocytes # (Manual) Monocytes # (Manual) PT INR POC ABG pH POC ABG pCO2 29.5 L 31.5 L POC ABG pO2 115 H 122 H Sodium 154 H Potassium Chloride 117.9 H Carbon Dioxide 19 L BUN 87 H Creatinine 4.1 H Glucose POC Glucose Lactic Acid Calcium 8.1 L Magnesium AST ALT Alkaline Phosphatase Troponin T C-Reactive Protein Total Protein Albumin LDL Cholesterol Direct HDL Cholesterol Hepatitis C Antibody Crossmatch 11/16/17 11/17/17 11/17/17 16:37 04:07 10:00 WBC 14.7 H RBC 3.23 L Hgb 8.3 L Hct 28.1 L MCV MCH 26 L MCHC 30 L RDW 18.8 H Plt Count Lymph % (Auto) [place] % (Auto) Lymph # [place] # Seg Neutrophils % Seg Neuts % (Manual) 75 H Lymphocytes % (Manual) 8.0 L Monocytes % (Manual) Nucleated RBC % 1.0 H Seg Neutrophils # Seg Neutrophils # Man 11.0 H Lymphocytes # (Manual) Monocytes # (Manual) 0.9 H PT INR POC ABG pH POC ABG pCO2 POC ABG pO2 Sodium 153 H 155 H Potassium Chloride 117.3 H 119.4 H Carbon Dioxide 19 L 20 L BUN 90 H 89 H Creatinine 3.9 H 3.6 H Glucose 111 H 115 H POC Glucose Lactic Acid Calcium 8.1 L 8.0 L Magnesium AST ALT Alkaline Phosphatase Troponin T C-Reactive Protein Total Protein Albumin LDL Cholesterol Direct HDL Cholesterol Hepatitis C Antibody Crossmatch 11/18/17 11/18/17 11/18/17 04:34 04:34 04:34 WBC 15.5 H RBC 3.13 L Hgb 8.1 L Hct 26.3 L MCV MCH 26 L MCHC 31 L RDW 18.6 H Plt Count Lymph % (Auto) [place] % (Auto) Lymph # [place] # Seg Neutrophils % Seg Neuts % (Manual) 81.0 H Lymphocytes % (Manual) 7.0 L Monocytes % (Manual) Nucleated RBC % 1.0 H Seg Neutrophils # Seg Neutrophils # Man 12.6 H Lymphocytes # (Manual) 1.1 L Monocytes # (Manual) PT 16.7 H INR 1.30 H POC ABG pH POC ABG pCO2 POC ABG pO2 Sodium 155 H Potassium 3.2 L Chloride 121.0 H Carbon Dioxide 20 L BUN 74 H Creatinine 2.9 H Glucose 126 H POC Glucose Lactic Acid Calcium 7.9 L Magnesium AST ALT Alkaline Phosphatase Troponin T C-Reactive Protein Total Protein Albumin LDL Cholesterol Direct HDL Cholesterol Hepatitis C Antibody Crossmatch 11/19/17 11/19/17 11/20/17 04:44 04:44 00:38 WBC 19.0 H 22.2 H RBC 3.20 L 3.17 L Hgb 8.4 L 7.9 L Hct 27.9 L 26.4 L MCV 83 L MCH 26 L 25 L MCHC 30 L 30 L RDW 19.1 H 18.9 H Plt Count Lymph % (Auto) [place] % (Auto) Lymph # [place] # Seg Neutrophils % Seg Neuts % (Manual) 83.0 H Lymphocytes % (Manual) 3.0 L Monocytes % (Manual) 9.0 H Nucleated RBC % Seg Neutrophils # Seg Neutrophils # Man 18.4 H Lymphocytes # (Manual) 0.7 L Monocytes # (Manual) 2.0 H PT INR POC ABG pH POC ABG pCO2 POC ABG pO2 Sodium 152 H Potassium Chloride 117.1 H Carbon Dioxide 17 L BUN 66 H Creatinine 2.8 H Glucose 119 H POC Glucose Lactic Acid Calcium 7.8 L Magnesium 2.70 H AST ALT Alkaline Phosphatase Troponin T C-Reactive Protein Total Protein Albumin LDL Cholesterol Direct HDL Cholesterol Hepatitis C Antibody Crossmatch 11/20/17 11/20/17 11/20/17 03:29 04:48 13:38 WBC RBC Hgb Hct MCV MCH MCHC RDW Plt Count Lymph % (Auto) [place] % (Auto) Lymph # [place] # Seg Neutrophils % Seg Neuts % (Manual) Lymphocytes % (Manual) Monocytes % (Manual) Nucleated RBC % Seg Neutrophils # Seg Neutrophils # Man Lymphocytes # (Manual) Monocytes # (Manual) PT INR POC ABG pH POC ABG pCO2 29.4 L POC ABG pO2 Sodium 148 H Potassium 3.4 L Chloride 113.7 H Carbon Dioxide 18 L BUN 59 H Creatinine 2.7 H Glucose 113 H POC Glucose 128 H Lactic Acid Calcium 7.8 L Magnesium AST ALT Alkaline Phosphatase Troponin T C-Reactive Protein Total Protein Albumin LDL Cholesterol Direct HDL Cholesterol Hepatitis C Antibody Crossmatch 11/20/17 11/20/17 11/21/17 17:38 23:40 00:13 WBC RBC Hgb 8.4 L Hct 28.0 L MCV MCH MCHC RDW Plt Count Lymph % (Auto) [place] % (Auto) Lymph # [place] # Seg Neutrophils % Seg Neuts % (Manual) Lymphocytes % (Manual) Monocytes % (Manual) Nucleated RBC % Seg Neutrophils # Seg Neutrophils # Man Lymphocytes # (Manual) Monocytes # (Manual) PT INR POC ABG pH POC ABG pCO2 POC ABG pO2 Sodium Potassium Chloride Carbon Dioxide BUN Creatinine Glucose POC Glucose 115 H 145 H Lactic Acid Calcium Magnesium AST ALT Alkaline Phosphatase Troponin T C-Reactive Protein Total Protein Albumin LDL Cholesterol Direct HDL Cholesterol Hepatitis C Antibody Crossmatch 11/21/17 11/21/17 11/21/17 04:30 04:30 04:58 WBC 21.0 H RBC Hgb 9.6 L Hct 32.7 L MCV MCH 25 L MCHC 29 L RDW 19.7 H Plt Count 746 H Lymph % (Auto) [place] % (Auto) Lymph # [place] # Seg Neutrophils % Seg Neuts % (Manual) Lymphocytes % (Manual) Monocytes % (Manual) Nucleated RBC % Seg Neutrophils # Seg Neutrophils # Man Lymphocytes # (Manual) Monocytes # (Manual) PT INR POC ABG pH POC ABG pCO2 POC ABG pO2 Sodium Potassium Chloride 109.4 H Carbon Dioxide 14 L BUN 59 H Creatinine 3.0 H Glucose 137 H POC Glucose 132 H Lactic Acid Calcium 7.6 L Magnesium AST ALT Alkaline Phosphatase Troponin T C-Reactive Protein Total Protein Albumin LDL Cholesterol Direct HDL Cholesterol Hepatitis C Antibody Crossmatch 11/21/17 11/21/17 11/21/17 06:30 13:43 14:17 WBC 38.2 H RBC Hgb 9.0 L Hct 32.3 L MCV MCH 25 L MCHC 28 L RDW 20.0 H Plt Count 766 H Lymph % (Auto) [place] % (Auto) Lymph # [place] # Seg Neutrophils % Seg Neuts % (Manual) 85.0 H Lymphocytes % (Manual) 1.0 L Monocytes % (Manual) Nucleated RBC % 2.0 H Seg Neutrophils # Seg Neutrophils # Man 32.5 H Lymphocytes # (Manual) 0.4 L Monocytes # (Manual) 2.3 H PT INR POC ABG pH POC ABG pCO2 18.6 L POC ABG pO2 121 H Sodium 146 H Potassium Chloride 110.9 H Carbon Dioxide 11 L BUN 62 H Creatinine 4.0 H Glucose 64 L POC Glucose Lactic Acid Calcium 7.6 L Magnesium AST ALT Alkaline Phosphatase Troponin T C-Reactive Protein Total Protein Albumin LDL Cholesterol Direct HDL Cholesterol Hepatitis C Antibody Crossmatch 11/21/17 11/21/17 11/22/17 14:17 19:09 00:05 WBC RBC Hgb Hct MCV MCH MCHC RDW Plt Count Lymph % (Auto) [place] % (Auto) Lymph # [place] # Seg Neutrophils % Seg Neuts % (Manual) Lymphocytes % (Manual) Monocytes % (Manual) Nucleated RBC % Seg Neutrophils # Seg Neutrophils # Man Lymphocytes # (Manual) Monocytes # (Manual) PT INR POC ABG pH POC ABG pCO2 20.0 L POC ABG pO2 Sodium Potassium Chloride Carbon Dioxide BUN Creatinine Glucose POC Glucose 127 H Lactic Acid 7.70 H* Calcium Magnesium AST ALT Alkaline Phosphatase Troponin T C-Reactive Protein Total Protein Albumin LDL Cholesterol Direct HDL Cholesterol Hepatitis C Antibody Crossmatch 11/22/17 11/22/17 11/22/17 03:53 06:00 07:25 WBC RBC Hgb Hct MCV MCH MCHC RDW Plt Count Lymph % (Auto) [place] % (Auto) Lymph # [place] # Seg Neutrophils % Seg Neuts % (Manual) Lymphocytes % (Manual) Monocytes % (Manual) Nucleated RBC % Seg Neutrophils # Seg Neutrophils # Man Lymphocytes # (Manual) Monocytes # (Manual) PT INR POC ABG pH POC ABG pCO2 22.2 L POC ABG pO2 Sodium 147 H Potassium Chloride 111.9 H Carbon Dioxide 16 L BUN 72 H Creatinine 5.1 H Glucose 181 H POC Glucose 180 H Lactic Acid Calcium 7.1 L Magnesium AST ALT Alkaline Phosphatase Troponin T C-Reactive Protein Total Protein Albumin LDL Cholesterol Direct HDL Cholesterol Hepatitis C Antibody Crossmatch 11/22/17 11/22/17 11/22/17 07:25 07:25 12:05 WBC 31.4 H RBC 3.22 L Hgb 8.0 L Hct 26.7 L MCV 83 L MCH 25 L MCHC 30 L RDW 19.4 H Plt Count 602 H Lymph % (Auto) [place] % (Auto) Lymph # [place] # Seg Neutrophils % Seg Neuts % (Manual) Lymphocytes % (Manual) Monocytes % (Manual) Nucleated RBC % Seg Neutrophils # Seg Neutrophils # Man Lymphocytes # (Manual) Monocytes # (Manual) PT INR POC ABG pH POC ABG pCO2 POC ABG pO2 Sodium Potassium Chloride Carbon Dioxide BUN Creatinine Glucose POC Glucose 182 H Lactic Acid 5.00 H* Calcium Magnesium AST ALT Alkaline Phosphatase Troponin T C-Reactive Protein Total Protein Albumin LDL Cholesterol Direct HDL Cholesterol Hepatitis C Antibody Crossmatch 11/22/17 11/23/17 11/23/17 19:45 01:28 04:56 WBC RBC Hgb Hct MCV MCH MCHC RDW Plt Count Lymph % (Auto) [place] % (Auto) Lymph # [place] # Seg Neutrophils % Seg Neuts % (Manual) Lymphocytes % (Manual) Monocytes % (Manual) Nucleated RBC % Seg Neutrophils # Seg Neutrophils # Man Lymphocytes # (Manual) Monocytes # (Manual) PT INR POC ABG pH 7.505 H POC ABG pCO2 26.3 L POC ABG pO2 Sodium Potassium Chloride Carbon Dioxide BUN Creatinine Glucose POC Glucose 165 H Lactic Acid Calcium Magnesium AST ALT Alkaline Phosphatase Troponin T C-Reactive Protein Total Protein Albumin LDL Cholesterol Direct HDL Cholesterol Hepatitis C Antibody Reactive A Crossmatch 11/23/17 11/23/17 11/23/17 07:05 12:32 17:53 WBC RBC Hgb Hct MCV MCH MCHC RDW Plt Count Lymph % (Auto) [place] % (Auto) Lymph # [place] # Seg Neutrophils % Seg Neuts % (Manual) Lymphocytes % (Manual) Monocytes % (Manual) Nucleated RBC % Seg Neutrophils # Seg Neutrophils # Man Lymphocytes # (Manual) Monocytes # (Manual) PT INR POC ABG pH POC ABG pCO2 POC ABG pO2 Sodium Potassium Chloride Carbon Dioxide 18 L BUN 61 H Creatinine 4.2 H Glucose 153 H POC Glucose 138 H 173 H Lactic Acid Calcium 7.5 L Magnesium AST ALT Alkaline Phosphatase Troponin T C-Reactive Protein Total Protein Albumin LDL Cholesterol Direct HDL Cholesterol Hepatitis C Antibody Crossmatch 11/23/17 11/24/17 11/24/17 23:41 05:42 05:42 WBC 21.5 H RBC 2.48 L Hgb 6.2 L Hct 20.3 L D MCV 82 L MCH 25 L MCHC 31 L RDW 18.9 H Plt Count Lymph % (Auto) [place] % (Auto) Lymph # [place] # Seg Neutrophils % Seg Neuts % (Manual) 94.0 H Lymphocytes % (Manual) 3.0 L Monocytes % (Manual) Nucleated RBC % Seg Neutrophils # Seg Neutrophils # Man 20.2 H Lymphocytes # (Manual) 0.6 L Monocytes # (Manual) PT INR POC ABG pH POC ABG pCO2 POC ABG pO2 Sodium 149 H Potassium 2.8 L* D Chloride 113.9 H Carbon Dioxide 19 L BUN 31 H Creatinine 2.3 H Glucose 103 H POC Glucose 133 H Lactic Acid Calcium 5.3 L* D Magnesium 1.30 L AST ALT Alkaline Phosphatase Troponin T C-Reactive Protein Total Protein Albumin LDL Cholesterol Direct HDL Cholesterol Hepatitis C Antibody Crossmatch 11/24/17 11/24/17 11/24/17 05:42 08:27 08:27 WBC RBC Hgb Hct MCV MCH MCHC RDW Plt Count Lymph % (Auto) [place] % (Auto) Lymph # [place] # Seg Neutrophils % Seg Neuts % (Manual) Lymphocytes % (Manual) Monocytes % (Manual) Nucleated RBC % Seg Neutrophils # Seg Neutrophils # Man Lymphocytes # (Manual) Monocytes # (Manual) PT INR POC ABG pH POC ABG pCO2 POC ABG pO2 Sodium Potassium Chloride Carbon Dioxide BUN Creatinine Glucose POC Glucose Lactic Acid 5.40 H* 5.20 H* Calcium Magnesium AST ALT Alkaline Phosphatase Troponin T C-Reactive Protein Total Protein Albumin LDL Cholesterol Direct HDL Cholesterol Hepatitis C Antibody Crossmatch See Detail 11/24/17 11/24/17 11/24/17 12:13 17:22 21:53 WBC 23.0 H RBC 3.32 L Hgb 8.8 L Hct 27.1 L D MCV 82 L MCH 26 L MCHC RDW 17.3 H Plt Count Lymph % (Auto) [place] % (Auto) Lymph # [place] # Seg Neutrophils % Seg Neuts % (Manual) Lymphocytes % (Manual) Monocytes % (Manual) Nucleated RBC % Seg Neutrophils # Seg Neutrophils # Man Lymphocytes # (Manual) Monocytes # (Manual) PT INR POC ABG pH POC ABG pCO2 POC ABG pO2 Sodium Potassium Chloride Carbon Dioxide BUN Creatinine Glucose POC Glucose 138 H 180 H Lactic Acid Calcium Magnesium AST ALT Alkaline Phosphatase Troponin T C-Reactive Protein Total Protein Albumin LDL Cholesterol Direct HDL Cholesterol Hepatitis C Antibody Crossmatch 11/24/17 11/24/17 11/25/17 21:53 23:28 04:19 WBC RBC Hgb Hct MCV MCH MCHC RDW Plt Count Lymph % (Auto) [place] % (Auto) Lymph # [place] # Seg Neutrophils % Seg Neuts % (Manual) Lymphocytes % (Manual) Monocytes % (Manual) Nucleated RBC % Seg Neutrophils # Seg Neutrophils # Man Lymphocytes # (Manual) Monocytes # (Manual) PT INR POC ABG pH POC ABG pCO2 POC ABG pO2 Sodium Potassium Chloride 96.3 L Carbon Dioxide BUN 28 H 31 H Creatinine 2.3 H 2.6 H Glucose 125 H 101 H POC Glucose 111 H Lactic Acid Calcium 7.5 L D 7.4 L Magnesium AST 170 H ALT 179 H Alkaline Phosphatase 175 H Troponin T C-Reactive Protein Total Protein 5.5 L Albumin 1.8 L LDL Cholesterol Direct HDL Cholesterol Hepatitis C Antibody Crossmatch 11/25/17 11/25/17 04:19 04:19 WBC 22.5 H RBC 3.48 L Hgb 9.1 L Hct 28.3 L MCV 81 L MCH 26 L MCHC RDW 17.4 H Plt Count Lymph % (Auto) [place] % (Auto) Lymph # [place] # Seg Neutrophils % Seg Neuts % (Manual) Lymphocytes % (Manual) Monocytes % (Manual) Nucleated RBC % Seg Neutrophils # Seg Neutrophils # Man Lymphocytes # (Manual) Monocytes # (Manual) PT INR POC ABG pH POC ABG pCO2 POC ABG pO2 Sodium Potassium Chloride Carbon Dioxide BUN 31 H Creatinine 2.6 H Glucose 101 H POC Glucose Lactic Acid Calcium 7.5 L Magnesium AST ALT Alkaline Phosphatase Troponin T C-Reactive Protein Total Protein Albumin LDL Cholesterol Direct HDL Cholesterol Hepatitis C Antibody Crossmatch Chest x-ray: report reviewed, image reviewed
--- NOTE | 2017-11-25 19:47 | Consultation ---
History of Present Illness Consult date: 11/25/17 Reason for consult: other (dislodged PEG tube) Requesting physician: MARINO BOLAÑOS Chief complaint: dislodged PEG tube - History of present illness History of present illness: 67yo M with complicated history including recent readmission (11/12) from rehab for respiratory failure. Prior to d/c, patient had a PEG tube placed by GI on . Recent work-up for hypotension showed a dislodged PEG tube on CT scan with extraluminal PO contrast that was limited to the upper abdomen and left gutter. Pt had an EGD on 11/18 that did not show the PEG button or an obvious hole in the stomach. There was no free air noted on CXR's. Pt has remained HD stable and off pressors recently. He had been having BMs per the nursing staff. Does not appear to be in pain per staff. Pt unable to participate in interview. Medical history obtained from chart and staff. Past History Past Medical History: arthritis, CAD, hypertension, stroke Past Surgical History: hernia repair, Other (CEA, PEG) Social history: other (care home resident) Family history: hypertension Medications and Allergies Allergies Allergy/AdvReac Type Severity Reaction Status Date / Time adhesive tape AdvReac SKIN TEAR Verified 10/09/17 13:53 Home Medications Medication Instructions Recorded Confirmed Last Taken Type Aspirin [Adult Low Dose Aspirin EC] 81 mg PO DAILY 05/18/15 11/13/17 09/15/16 History Cetirizine HCl [Allergy Relief] 10 mg PO DAILY 09/15/16 11/13/17 09/15/16 History Clopidogrel [Plavix] 75 mg PO QDAY 09/15/16 11/13/17 09/15/16 History Meloxicam [Mobic] 15 mg PO DAILY 09/15/16 11/13/17 09/15/16 History Pantoprazole [Protonix TAB] 40 mg PO QDAY 09/15/16 11/13/17 09/15/16 History amLODIPine [Norvasc] 10 mg PO DAILY 09/15/16 11/13/17 09/15/16 History Metoprolol [Lopressor TAB] 25 mg PO BID #60 tablet 01/23/17 11/13/17 Unknown Rx Active Meds: Active Medications Acetaminophen (Tylenol) 650 mg MA Q4H PRN PRN Reason: Pain MILD(1-3)/Fever >100.5/CABELLO Last Admin: 11/22/17 09:07 Dose: 650 mg Lipase/Protease/Amylase (Pancreaze Dr 10,500 Unit) 1 each FEEDTUBE PRN PRN PRN Reason: For Clogged Feeding Tube Fentanyl Citrate (Fentanyl Drip Premix) 2,000 mcg in 100 mls @ 3.969 mls/hr IV TITR OSIRIS; Protocol Last Titration: 11/12/17 04:07 Dose: 5 mcg/kg/hr, 19.845 mls/hr Propofol (Diprivan 10 Mg/Ml) 1,000 mg in 100 mls @ 2.381 mls/hr IV TITR OSIRIS; Protocol Last Titration: 11/17/17 19:32 Dose: 10 mcg/kg/min, 4.763 mls/hr Norepinephrine 8 mg/ Sodium (Chloride) 250 mls @ 3.75 mls/hr IV TITR OSIRIS; Protocol Last Titration: 11/23/17 04:00 Dose: 0 mcg/min, 0 mls/hr Phenylephrine HCl 100 mg/ (Sodium Chloride) 100 mls @ 3 mls/hr IV TITR OSIRIS; Protocol Last Titration: 11/22/17 00:10 Dose: 0 mcg/min, 0 mls/hr Piperacillin Sod/Tazobactam Sod (Zosyn/Ns 2.25 Gm/50ml) 2.25 gm in 50 mls @ 100 mls/hr IV Q8HR OSIRIS; Protocol Stop: 11/28/17 23:59 Last Admin: 11/25/17 13:55 Dose: 100 mls/hr Sodium Chloride (Nacl 0.9%) 100 mls @ 999 mls/hr IV TIM PRN PRN Reason: Hypotension Pantoprazole Sodium 80 mg/ (Sodium Chloride) 100 mls @ 10 mls/hr IV DIRECT OSIRIS Last Admin: 11/25/17 11:28 Dose: 8 mg/hr, 10 mls/hr Ondansetron HCl (Zofran) 4 mg IV Q8H PRN PRN Reason: Nausea And Vomiting Simple Syrup (Simple Syrup) 15 ml FEEDTUBE PRN PRN PRN Reason: Hypoglycemia Last Admin: 11/21/17 11:26 Dose: 15 ml Simple Syrup (Simple Syrup) 30 ml FEEDTUBE PRN PRN PRN Reason: Hypoglycemia Sodium Bicarbonate (Sodium Bicarbonate) 325 mg FEEDTUBE PRN PRN PRN Reason: For Clogged Feeding Tube Sodium Chloride (Sodium Chloride Flush Syringe 10 Ml) 10 ml IV BID OSIRIS Last Admin: 11/25/17 09:46 Dose: 10 ml Sodium Chloride (Sodium Chloride Flush Syringe 10 Ml) 10 ml IV PRN PRN PRN Reason: LINE FLUSH Review of Systems ROS unobtainable: due to endotracheal tube (trach tube and mental status change) Exam Vital Signs Pulse Resp BP Pulse Ox 135 H 32 H 126/86 94 11/11/17 22:26 11/11/17 22:26 11/11/17 22:26 11/11/17 22:26 - General physical appearance Positive: no distress, no pain - Neck Positive: other (trach in place with some yellowish secretions around the trach. ) - Respiratory Positive: normal expansion, other (coarse BS on right) - Cardiovascular Rhythm: regular - Abdomen Abdomen: Present: soft, bowel sounds hypoactive, other (protuberant abdomen. PEG in place. ). Absent: tender, guarding, rigid - Integumentary no rash, no growths, no abnormal pigmentation Results - Labs 11/25/17 04:19 11/25/17 04:19 Abnormal lab results 11/24/17 11/24/17 11/24/17 Range/Units 21:53 21:53 23:28 WBC 23.0 H (4.5-11.0) K/mm3 RBC 3.32 L (3.65-5.03) M/mm3 Hgb 8.8 L (11.8-15.2) gm/dl Hct 27.1 L D (35.5-45.6) % MCV 82 L (84-94) fl MCH 26 L (28-32) pg RDW 17.3 H (13.2-15.2) % Chloride 96.3 L (98-107) mmol/L BUN 28 H (9-20) mg/dL Creatinine 2.3 H (0.8-1.5) mg/dL Glucose 125 H (75-100) mg/dL POC Glucose 111 H (70-105) Calcium 7.5 L D (8.4-10.2) mg/dL AST 170 H (5-40) units/L ALT 179 H (7-56) units/L Alkaline Phosphatase 175 H (35-129) units/L Total Protein 5.5 L (6.3-8.2) g/dL Albumin 1.8 L (3.9-5) g/dL 11/25/17 11/25/17 11/25/17 Range/Units 04:19 04:19 04:19 WBC 22.5 H (4.5-11.0) K/mm3 RBC 3.48 L (3.65-5.03) M/mm3 Hgb 9.1 L (11.8-15.2) gm/dl Hct 28.3 L (35.5-45.6) % MCV 81 L (84-94) fl MCH 26 L (28-32) pg RDW 17.4 H (13.2-15.2) % Chloride (98-107) mmol/L BUN 31 H 31 H (9-20) mg/dL Creatinine 2.6 H 2.6 H (0.8-1.5) mg/dL Glucose 101 H 101 H (75-100) mg/dL POC Glucose (70-105) Calcium 7.4 L 7.5 L (8.4-10.2) mg/dL AST (5-40) units/L ALT (7-56) units/L Alkaline Phosphatase (35-129) units/L Total Protein (6.3-8.2) g/dL Albumin (3.9-5) g/dL Diabetes panel 11/24/17 11/25/17 11/25/17 Range/Units 21:53 04:19 04:19 Sodium 139 D 141 141 (137-145) mmol/L Potassium 4.1 D 4.2 4.2 (3.6-5.0) mmol/L Chloride 96.3 L 98.4 98.9 (98-107) mmol/L Carbon Dioxide 27 D 24 25 (22-30) mmol/L BUN 28 H 31 H 31 H (9-20) mg/dL Creatinine 2.3 H 2.6 H 2.6 H (0.8-1.5) mg/dL Glucose 125 H 101 H 101 H (75-100) mg/dL Calcium 7.5 L D 7.4 L 7.5 L (8.4-10.2) mg/dL AST 170 H (5-40) units/L ALT 179 H (7-56) units/L Alkaline Phosphatase 175 H (35-129) units/L Total Protein 5.5 L (6.3-8.2) g/dL Albumin 1.8 L (3.9-5) g/dL Calcium panel 11/24/17 11/25/17 11/25/17 Range/Units 21:53 04:19 04:19 Calcium 7.5 L D 7.4 L 7.5 L (8.4-10.2) mg/dL Albumin 1.8 L (3.9-5) g/dL Pituitary panel 11/24/17 11/25/17 11/25/17 Range/Units 21:53 04:19 04:19 Sodium 139 D 141 141 (137-145) mmol/L Potassium 4.1 D 4.2 4.2 (3.6-5.0) mmol/L Chloride 96.3 L 98.4 98.9 (98-107) mmol/L Carbon Dioxide 27 D 24 25 (22-30) mmol/L BUN 28 H 31 H 31 H (9-20) mg/dL Creatinine 2.3 H 2.6 H 2.6 H (0.8-1.5) mg/dL Glucose 125 H 101 H 101 H (75-100) mg/dL Calcium 7.5 L D 7.4 L 7.5 L (8.4-10.2) mg/dL Adrenal panel 11/24/17 11/25/17 11/25/17 Range/Units 21:53 04:19 04:19 Sodium 139 D 141 141 (137-145) mmol/L Potassium 4.1 D 4.2 4.2 (3.6-5.0) mmol/L Chloride 96.3 L 98.4 98.9 (98-107) mmol/L Carbon Dioxide 27 D 24 25 (22-30) mmol/L BUN 28 H 31 H 31 H (9-20) mg/dL Creatinine 2.3 H 2.6 H 2.6 H (0.8-1.5) mg/dL Glucose 125 H 101 H 101 H (75-100) mg/dL Calcium 7.5 L D 7.4 L 7.5 L (8.4-10.2) mg/dL Total Bilirubin 0.90 (0.1-1.2) mg/dL AST 170 H (5-40) units/L ALT 179 H (7-56) units/L Alkaline Phosphatase 175 H (35-129) units/L Total Protein 5.5 L (6.3-8.2) g/dL Albumin 1.8 L (3.9-5) g/dL - Imaging Chest x-ray: report reviewed, image reviewed CT scan - abdomen: report reviewed, image reviewed CT scan - pelvis: report reviewed, image reviewed Assessment and Plan - Patient Problems (1) Gastrostomy malfunction Current Visit: Yes Status: Acute Plan to address problem: Pt is stable. After reviewing the records, discussing the case with multiple attendings, and seeing the patient, it is clear that we do not have an acute perforation. Most likely, the PEG tube started to migrate out of position prior to 11/18 as evidenced by no PEG button seen on EGD and no obvious hole in the stomach. As the contrast is restricted to certain areas in the abdomen, the fluid is loculated. The "ascites" may be tube feeds and/or reactionary fluid. Regardless, patient is not showing signs of obvious peritonitis. In this case, it may be prudent to try placing a few drains in the abdomen to remove that largest collections. I have already discussed this case with Dr. Moreira who agreed to review the case and see if that was possible. The alternative would be to take the patient for an ex-lap and washout the abdomen. I'm concerned that there may be a lot of inflammatory changes in the abdomen which would put him at risk for bowel injuries from the procedure. Therefore, this will be our back-up plan if the drains do not resolve the problem. As for nutritional access , for now, I would recommend an NGT. I doubt he has an active leak, so there is no need to test the stomach prior to using it. I have explained this plan in detail to the daughter (Jannette) and the attendings from ICU, GI, and hospitalist service. All were in agreement. 1) IR consult for drain placement 2) NGT for nutrition 3) Serial exams. Time=75min Pt was initially seen at 1648.
--- NOTE | 2017-11-25 20:02 | Progress Note ---
Assessment and Plan - Patient Problems (1) Ventilator dependence Current Visit: Yes Status: Acute Plan to address problem: ween as tolerated pt. on CPAP (2) Acute respiratory failure with hypoxemia Current Visit: Yes Status: Acute Plan to address problem: Titrate O2 to keep sat.+92% (3) Respiratory failure Current Visit: No Status: Acute Plan to address problem: ween as tolerated (4) Tracheostomy status Current Visit: Yes Status: Acute Plan to address problem: local trache care trache change POD #5-7 if pt cont. to ween quickly may change trache to a 6 cuffless once he is on t-piece for 24hrs Subjective Date of service: 11/25/17 Principal diagnosis: GI bleed Interval history: POD #5 Pt. resting comfortably, nursing reports that his sensorium waxes & wanes with episodes of alertness Objective - Constitutional Vitals: Vital Signs - 12hr 11/25/17 11/25/17 11/25/17 08:00 08:31 09:00 Temperature 98.7 F Pulse Rate 85 81 87 Pulse Rate [ 94 H Right From Monitor] Respiratory 18 18 21 Rate Blood Pressure 100/58 108/66 104/62 O2 Sat by Pulse 99 99 99 Oximetry O2 Sat by Pulse Oximetry [ Assessment] 11/25/17 11/25/17 11/25/17 09:05 09:11 09:12 Temperature Pulse Rate 97 H 77 Pulse Rate [ Right From Monitor] Respiratory 28 H Rate Blood Pressure 104/62 104/62 O2 Sat by Pulse 99 99 Oximetry O2 Sat by Pulse 99 Oximetry [ Assessment] 11/25/17 11/25/17 11/25/17 09:30 10:00 10:30 Temperature Pulse Rate 83 75 76 Pulse Rate [ Right From Monitor] Respiratory 26 H 20 25 H Rate Blood Pressure 113/67 106/60 117/62 O2 Sat by Pulse 100 100 100 Oximetry O2 Sat by Pulse Oximetry [ Assessment] 11/25/17 11/25/17 11/25/17 11:00 11:30 12:00 Temperature 98.5 F Pulse Rate 97 H 92 H 84 Pulse Rate [ 94 H Right From Monitor] Respiratory 26 H 32 H 24 Rate Blood Pressure 136/80 141/78 115/64 O2 Sat by Pulse 100 99 100 Oximetry O2 Sat by Pulse Oximetry [ Assessment] 11/25/17 11/25/17 11/25/17 12:30 13:00 13:30 Temperature Pulse Rate 91 H 76 76 Pulse Rate [ Right From Monitor] Respiratory 26 H 28 H 25 H Rate Blood Pressure 165/76 112/64 115/60 O2 Sat by Pulse 100 100 100 Oximetry O2 Sat by Pulse Oximetry [ Assessment] 11/25/17 11/25/17 11/25/17 14:00 14:30 15:00 Temperature Pulse Rate 77 83 80 Pulse Rate [ Right From Monitor] Respiratory 27 H 26 H 26 H Rate Blood Pressure 123/68 116/70 122/65 O2 Sat by Pulse 99 100 99 Oximetry O2 Sat by Pulse Oximetry [ Assessment] 11/25/17 11/25/17 11/25/17 15:30 15:38 16:00 Temperature 97.2 F L Pulse Rate 80 88 84 Pulse Rate [ 94 H Right From Monitor] Respiratory 26 H 27 H 27 H Rate Blood Pressure 115/65 115/65 150/81 O2 Sat by Pulse 100 100 100 Oximetry O2 Sat by Pulse Oximetry [ Assessment] 11/25/17 11/25/17 11/25/17 16:30 17:00 17:30 Temperature Pulse Rate 79 76 71 Pulse Rate [ Right From Monitor] Respiratory 24 24 25 H Rate Blood Pressure 121/68 110/66 127/65 O2 Sat by Pulse 100 100 99 Oximetry O2 Sat by Pulse Oximetry [ Assessment] 11/25/17 11/25/17 11/25/17 18:00 18:05 18:08 Temperature Pulse Rate 77 78 Pulse Rate [ Right From Monitor] Respiratory 22 27 H Rate Blood Pressure 122/71 122/71 O2 Sat by Pulse 100 100 Oximetry O2 Sat by Pulse 100 Oximetry [ Assessment] 11/25/17 11/25/17 18:30 19:00 Temperature Pulse Rate 84 84 Pulse Rate [ Right From Monitor] Respiratory 22 29 H Rate Blood Pressure 164/73 118/61 O2 Sat by Pulse 100 99 Oximetry O2 Sat by Pulse Oximetry [ Assessment] General appearance: Present: no acute distress, well-nourished - EENT Eyes: PERRL, EOM intact ENT: hearing intact, poor dentition, other (hearing intact by nursing staff) Ears: bilateral: other (pinna w/o breakdown) - Neck Neck: supple, other (stoma clean & dry, sutures intact) - Respiratory Respiratory effort: normal, other (on the vent) - Breasts Breasts: deferred - Cardiovascular Rhythm: regular Heart Sounds: Present: S1 & S2 Extremities: no ischemia, normal color - Gastrointestinal General gastrointestinal: Present: soft, non-tender Rectal Exam: deferred - Genitourinary Male genitourinary: deferred - Integumentary Integumentary: clear, warm, dry - Musculoskeletal Musculoskeletal: other (sedated) - Neurologic Neurologic: other (sedated) - Psychiatric Psychiatric: other (sedated) - Labs CBC & Chem 7: 11/25/17 04:19 11/25/17 04:19 Labs: Abnormal lab results 11/24/17 11/24/17 11/24/17 Range/Units 21:53 21:53 23:28 WBC 23.0 H (4.5-11.0) K/mm3 RBC 3.32 L (3.65-5.03) M/mm3 Hgb 8.8 L (11.8-15.2) gm/dl Hct 27.1 L D (35.5-45.6) % MCV 82 L (84-94) fl MCH 26 L (28-32) pg RDW 17.3 H (13.2-15.2) % Chloride 96.3 L (98-107) mmol/L BUN 28 H (9-20) mg/dL Creatinine 2.3 H (0.8-1.5) mg/dL Glucose 125 H (75-100) mg/dL POC Glucose 111 H (70-105) Calcium 7.5 L D (8.4-10.2) mg/dL AST 170 H (5-40) units/L ALT 179 H (7-56) units/L Alkaline Phosphatase 175 H (35-129) units/L Total Protein 5.5 L (6.3-8.2) g/dL Albumin 1.8 L (3.9-5) g/dL 11/25/17 11/25/17 11/25/17 Range/Units 04:19 04:19 04:19 WBC 22.5 H (4.5-11.0) K/mm3 RBC 3.48 L (3.65-5.03) M/mm3 Hgb 9.1 L (11.8-15.2) gm/dl Hct 28.3 L (35.5-45.6) % MCV 81 L (84-94) fl MCH 26 L (28-32) pg RDW 17.4 H (13.2-15.2) % Chloride (98-107) mmol/L BUN 31 H 31 H (9-20) mg/dL Creatinine 2.6 H 2.6 H (0.8-1.5) mg/dL Glucose 101 H 101 H (75-100) mg/dL POC Glucose (70-105) Calcium 7.4 L 7.5 L (8.4-10.2) mg/dL AST (5-40) units/L ALT (7-56) units/L Alkaline Phosphatase (35-129) units/L Total Protein (6.3-8.2) g/dL Albumin (3.9-5) g/dL
--- NOTE | 2017-11-25 23:51 | Progress Note ---
Assessment and Plan Assessment and plan: Mr. 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 He had a Carotid doppler done that revealed a right ICA 50-79% stenosis. CTA of the neck revealed 80% stenosis of the right ICA with probable 50% stenosis of the origin of the right common carotid artery. His symptoms were thought to be due to the Carotid artery stenosis which was disheartening since he was on Aspirin and plavix. He was scheduled for right CEA but needed Cardiac clearance. He underwent stress test on 10/05/17 and Linen Manager stated he was stable for non-cardiac history, low to moderate perioperative risk. So, he underwent right carotid enarterectomy on 10/09/17. Following the surgery, he developed recurrent left sided weakness/hemiparesis was taken to OR again on for Open Thrombectomy of Right Internal Carotid Artery and Injection of TPA into the Distal Artery. CT head obtained on 10/12/17 showed massive right cerebral hemisphere acute CVA with midline shift. He was discharged on 11/10/17 to [facility] but returned to ED on 11/12/17 for sob. He was admitted for Aspiration post-obstructive pneumonia with suspected mucus plug and subsequently intubated on admission. ON 11/20/17, patient went for Tracheostomy by Dr. Hughes, ENT. Then on 11/21/17 patient went into shock, most sepsis as WBC went up to 38k; most likely Aspiration pneumonitis, antibiotics restarted. He was on maximum dose of Levophed and Neosynephrine (right femoral line placed 11/21/[address] Celis for vasopressors). Then 11/22/17 (Thursday morning) the Neosynephrine weaned off and Levophed down to 10 mcg, also Dr. Palmer placed a left femoral tunnel cath for Hemodialysis. Today, Levophed has been weaned off. * CTA chest IMPRESSION: There is no thoracic aortic aneurysm or dissection.. There is no pulmonary embolism.. There is complete atelectasis of the left lung causing volume loss and mediastinal shift to the left. This is due to blockage of the left bronchus by the endotracheal tube which is in the right mainstem bronchus. There is no pleural effusion or pneumothorax.. There is pneumoperitoneum and ascites.. Dr. Navarro was notified by telephone at 3:20 a.m. central. * 1v Abd XRAY IMPRESSION: Nasogastric tube ends in the stomach. A PEG tube is identified. Bowel gas pattern is nonobstructive. -Acute on chronic blood loss anemia w/Coffee-ground material from peg tube: GI is following, treat with ppi iv bid, EGD done 11/18/17 showed 8 mm cratered, 10 mm linear ulcer proximal lesser curvature with erythema but no other bleeding stigmata, gastritis and 4-5 cm hiatal hernia 2 UNITS PRBC ORDERED. MONITOR H/H Acute hypoxic respiratory failure due to Pneumonia on MV>96 hours s/p Tracheostomy 11/20/17: continue MV, daily weaning attempt -Leukocyotosis with Sepsis with transient septic shock, poa: shock resolved, continue abx, ID is following -Aspiration pneumonia, with mucus plugging/post obstructive pna poa: [place] Technician is following, following sunction protocols -Acute encephalopathy: treat supportively -Hypernatremia: treat with free water, monitor bmp closely -Hypokalemia: replace and monitor closely -ARF vasomotor nephropathy, poa: IV fluids, monitor bmp closely -Dysphagia with aspiration: s/p peg tube - No family present at this time. -Advance care planning: full code Discussed with surgery and consult placed. Note copied in order to maintain accurate continuation in this complex case. Changes made to indicate current events and management. The high probability of a clinically significant, sudden or life threatening deterioration of the [HEMATOLOGY, PULMONARY] system(s) required my full and direct attention, intervention and personal management. The aggregate critical care time was [45] minutes. This time is in addition to time spent performing reported procedures but includes the following: [X] Data Review and interpretation [X] Patient assessment and monitoring of vital signs [X] Documentation [X] Medication orders and management History Interval history: Patient was seen and examined. Follow-up on current diagnosis of respiratory failure. very drowsy, but per nursing staff awakes and follows some commands Hospitalist Physical - Physical exam Narrative exam: GEN: ill appearing, not sedated, on MV via trach, HEENT: NCAT, pupils reactive, anicteric, NECK: supple, no adenopathy, no thyromegaly, no JVD, trach in place CVS/HEART: RRR, normal S1S2, pulses present bilaterally CHEST/LUNGS: Symmetrical chest expansion, good air entry bilaterally GI/Abdomen: soft, distended, pbs, +peg tube in place EXT/Skin: generalized edema x 4 MSK: left hemiparesis Neuro: doesn't follow commands Psych: confused and semi-comatose state - Constitutional Vitals: Temp Pulse Resp BP Pulse Ox 97.2 F L 99 H 32 H 120/59 100 11/25/17 16:00 11/25/17 21:02 11/25/17 21:02 11/25/17 21:02 11/25/17 21:02 General appearance: Present: no acute distress, well-nourished Results - Labs CBC & Chem 7: 11/25/17 04:19 11/26/17 06:34 Labs: Laboratory Last Values WBC 22.5 K/mm3 (4.5-11.0) H 11/25/17 04:19 RBC 3.48 M/mm3 (3.65-5.03) L 11/25/17 04:19 Hgb 9.1 gm/dl (11.8-15.2) L 11/25/17 04:19 Hct 28.3 % (35.5-45.6) L 11/25/17 04:19 MCV 81 fl (84-94) L 11/25/17 04:19 MCH 26 pg (28-32) L 11/25/17 04:19 MCHC 32 % (32-34) 11/25/17 04:19 RDW 17.4 % (13.2-15.2) H 11/25/17 04:19 Plt Count 309 K/mm3 (140-440) 11/25/17 04:19 Lymph % (Auto) 8.6 % (13.4-35.0) L 11/13/17 04:50 [place] % (Auto) 11.1 % (0.0-7.3) H 11/13/17 04:50 Eos % (Auto) 0.0 % (0.0-4.3) 11/13/17 04:50 Baso % (Auto) 0.2 % (0.0-1.8) 11/13/17 04:50 Lymph # 1.1 K/mm3 (1.2-5.4) L 11/13/17 04:50 [place] # 1.4 K/mm3 (0.0-0.8) H 11/13/17 04:50 Eos # 0.0 K/mm3 (0.0-0.4) 11/13/17 04:50 Baso # 0.0 K/mm3 (0.0-0.1) 11/13/17 04:50 Add Manual Diff Complete 11/24/17 05:42 Total Counted 100 11/24/17 05:42 Seg Neutrophils % Set Decorator 11/24/17 05:42 Seg Neuts % (Manual) 94.0 % (40.0-70.0) H 11/24/17 05:42 Band Neutrophils % 0 % 11/24/17 05:42 Lymphocytes % (Manual) 3.0 % (13.4-35.0) L 11/24/17 05:42 Reactive Lymphs % (Man) 0 % 11/24/17 05:42 Monocytes % (Manual) 3.0 % (0.0-7.3) 11/24/17 05:42 Eosinophils % (Manual) 0 % (0.0-4.3) 11/24/17 05:42 Basophils % (Manual) 0 % (0.0-1.8) 11/24/17 05:42 Metamyelocytes % 0 % 11/24/17 05:42 Myelocytes % 0 % 11/24/17 05:42 Promyelocytes % 0 % 11/24/17 05:42 Blast Cells % 0 % 11/24/17 05:42 Nucleated RBC % Not Reportable 11/24/17 05:42 Seg Neutrophils # 9.8 K/mm3 (1.8-7.7) H 11/13/17 04:50 Seg Neutrophils # Man 20.2 K/mm3 (1.8-7.7) H 11/24/17 05:42 Band Neutrophils # 0.0 K/mm3 11/24/17 05:42 Lymphocytes # (Manual) 0.6 K/mm3 (1.2-5.4) L 11/24/17 05:42 Abs React Lymphs (Man) 0.0 K/mm3 11/24/17 05:42 Monocytes # (Manual) 0.6 K/mm3 (0.0-0.8) 11/24/17 05:42 Eosinophils # (Manual) 0.0 K/mm3 (0.0-0.4) 11/24/17 05:42 Basophils # (Manual) 0.0 K/mm3 (0.0-0.1) 11/24/17 05:42 Metamyelocytes # 0.0 K/mm3 11/24/17 05:42 Myelocytes # 0.0 K/mm3 11/24/17 05:42 Promyelocytes # 0.0 K/mm3 11/24/17 05:42 Blast Cells # 0.0 K/mm3 11/24/17 05:42 WBC Morphology Not Reportable 11/24/17 05:42 Hypersegmented Neuts Not Reportable 11/24/17 05:42 Hyposegmented Neuts Not Reportable 11/24/17 05:42 Hypogranular Neuts Not Reportable 11/24/17 05:42 Smudge Cells Not Reportable 11/24/17 05:42 Toxic Granulation Not Reportable 11/24/17 05:42 Toxic Vacuolation Not Reportable 11/24/17 05:42 Dohle Bodies Not Reportable 11/24/17 05:42 Pelger-Huet Anomaly Not Reportable 11/24/17 05:42 Evangelina Rods Not Reportable 11/24/17 05:42 Platelet Estimate Appears normal 11/24/17 05:42 Clumped Platelets Not Reportable 11/24/17 05:42 Plt Clumps, EDTA Not Reportable 11/24/17 05:42 Large Platelets Not Reportable 11/24/17 05:42 Giant Platelets Not Reportable 11/24/17 05:42 Platelet Satelliting Not Reportable 11/24/17 05:42 Plt Morphology Comment Not Reportable 11/24/17 05:42 RBC Morphology Not Reportable 11/24/17 05:42 Dimorphic RBCs Not Reportable 11/24/17 05:42 Polychromasia Not Reportable 11/24/17 05:42 Hypochromasia Not Reportable 11/24/17 05:42 Poikilocytosis Not Reportable 11/24/17 05:42 Anisocytosis Few 11/24/17 05:42 Microcytosis Not Reportable 11/24/17 05:42 Macrocytosis Not Reportable 11/24/17 05:42 Spherocytes Not Reportable 11/24/17 05:42 Pappenheimer Bodies Not Reportable 11/24/17 05:42 Sickle Cells Not Reportable 11/24/17 05:42 Target Cells Few 11/24/17 05:42 Tear Drop Cells Not Reportable 11/24/17 05:42 Ovalocytes Not Reportable 11/24/17 05:42 Stomatocytes Few 11/18/17 04:34 Helmet Cells Not Reportable 11/24/17 05:42 [place] Bodies Not Reportable 11/24/17 05:42 Willard Rings Not Reportable 11/24/17 05:42 [place] Cells Not Reportable 11/24/17 05:42 Bite Cells Not Reportable 11/24/17 05:42 Crenated Cell Not Reportable 11/24/17 05:42 Elliptocytes Not Reportable 11/24/17 05:42 Acanthocytes (Spur) Not Reportable 11/24/17 05:42 Rouleaux Not Reportable 11/24/17 05:42 Hemoglobin C Crystals Not Reportable 11/24/17 05:42 Schistocytes Not Reportable 11/24/17 05:42 Malaria parasites Not Reportable 11/24/17 05:42 S[place] Bodies Not Reportable 11/24/17 05:42 Hem Pathologist Commnt No 11/24/17 05:42 PT 16.7 Sec. (12.2-14.9) H 11/18/17 04:34 INR 1.30 (0.87-1.13) H 11/18/17 04:34 APTT 31.7 Sec. (24.2-36.6) 11/12/17 00:23 POC ABG pH 7.505 (7.35-7.45) H 11/23/17 04:56 POC ABG pCO2 26.3 (35-45) L 11/23/17 04:56 POC ABG pO2 100 (80-105) 11/23/17 04:56 POC ABG HCO3 20.8 11/23/17 04:56 POC ABG Total CO2 22 11/23/17 04:56 POC ABG O2 Sat 98 11/23/17 04:56 POC ABG Base Excess -2 11/23/17 04:56 FiO2 30 % 11/23/17 04:56 Sodium 141 mmol/L (137-145) 11/25/17 04:19 Potassium 4.2 mmol/L (3.6-5.0) 11/25/17 04:19 Chloride 98.9 mmol/L (98-107) 11/25/17 04:19 Carbon Dioxide 25 mmol/L (22-30) 11/25/17 04:19 Anion Gap 21 mmol/L 11/25/17 04:19 BUN 31 mg/dL (9-20) H 11/25/17 04:19 Creatinine 2.6 mg/dL (0.8-1.5) H 11/25/17 04:19 Estimated GFR 30 ml/min 11/25/17 04:19 BUN/Creatinine Ratio 12 % 11/25/17 04:19 Glucose 101 mg/dL (75-100) H 11/25/17 04:19 POC Glucose 90 (70-105) 11/25/17 17:51 Lactic Acid 5.20 mmol/L (0.7-2.0) H* 11/24/17 08:27 Calcium 7.5 mg/dL (8.4-10.2) L 11/25/17 04:19 Magnesium 2.00 mg/dL (1.7-2.3) 11/24/17 21:53 Total Bilirubin 0.90 mg/dL (0.1-1.2) 11/24/17 21:53 AST 170 units/L (5-40) H 11/24/17 21:53 ALT 179 units/L (7-56) H 11/24/17 21:53 Alkaline Phosphatase 175 units/L (35-129) H 11/24/17 21:53 Total Creatine Kinase 84 units/L (55-170) 11/12/17 20:03 CK-MB (CK-2) < 1.0 ng/mL (0.0-4.0) 11/12/17 20:03 CK-MB (CK-2) Rel Index 1.1 (0-4) 11/12/17 20:03 Troponin T 0.098 ng/mL (0.00-0.029) H 11/12/17 Unknown C-Reactive Protein 25.70 mg/dL (0.00-1.30) H 11/11/17 23:20 NT-Pro-B Natriuret Pep 792.4 pg/mL (0-900) 11/11/17 23:20 Total Protein 5.5 g/dL (6.3-8.2) L 11/24/17 21:53 Albumin 1.8 g/dL (3.9-5) L 11/24/17 21:53 Albumin/Globulin Ratio 0.5 % 11/24/17 21:53 Triglycerides 86 mg/dL (2-149) 11/11/17 23:20 Cholesterol 82 mg/dL (50-199) 11/11/17 23:20 LDL Cholesterol Direct 42 mg/dL (50-130) L 11/11/17 23:20 HDL Cholesterol 24 mg/dL (40-59) L 11/11/17 23:20 Cholesterol/HDL Ratio 3.41 % 11/11/17 23:20 Lipase 30 units/L (13-60) 11/11/17 23:20 Urine Color Nicole (Yellow) 11/11/17 23:09 Urine Turbidity Cloudy (Clear) 11/11/17 23:09 Urine pH 5.0 (5.0-7.0) 11/11/17 23:09 Ur Specific Victor 1.025 (1.003-1.030) 11/11/17 23:09 Urine Protein 100 mg/dl mg/dL (Negative) 11/11/17 23:09 Urine Glucose (UA) 50 mg/dL (Negative) 11/11/17 23:09 Urine Ketones Neg mg/dL (Negative) 11/11/17 23:09 Urine Blood Neg (Negative) 11/11/17 23:09 Urine Nitrite Neg (Negative) 11/11/17 23:09 Urine Bilirubin Neg (Negative) 11/11/17 23:09 Urine Urobilinogen 4.0 mg/dL (<2.0) 11/11/17 23:09 Ur Leukocyte Esterase Neg (Negative) 11/11/17 23:09 Urine WBC (Auto) 5.0 /HPF (0.0-6.0) 11/11/17 23:09 Urine RBC (Auto) 4.0 /HPF (0.0-6.0) 11/11/17 23:09 Urine Bacteria (Auto) 3+ /HPF (Negative) 11/11/17 23:09 Amorphous Crystals 3+ 11/11/17 23:09 Hyaline Casts 76 /LPF 08/22/18 23:09 Urine Mucus 2+ /HPF 11/11/17 23:09 Hepatitis A IgM Ab Non-reactive (NonReactive) 11/22/17 19:45 Hep Bs Antigen Non-reactive (Negative) 11/22/17 19:45 Hep B Core IgM Ab Non-reactive (NonReactive) 11/22/17 19:45 Hepatitis C Antibody Reactive (NonReactive) A 11/22/17 19:45 Blood Type A POSITIVE 11/24/17 08:27 Antibody Screen Negative 11/24/17 08:27 Crossmatch See Detail 11/24/17 08:27
[2017-11-26] MEDS: SODIUM CHLORIDE FLUSH SYRINGE 10 ML IV SCH ×2 (00:57→10:00)
[2017-11-26] MEDS: PROTONIX 80 MG in NACL 0.9% 100 ML IV SCH (02:50)
[2017-11-26] MEDS: ZOSYN/NS 2.25 GM/50ML 2.25 GM/50 ML BAG IV SCH ×2 (06:00→22:24)
[2017-11-26 06:56] LABS: INR 1.96 (0.87-1.13)
[2017-11-26 06:57] LABS: Partial Thromboplastin Time 33.8 Sec. (24.2-36.6)
[2017-11-26 07:45] LABS: Calcium 7.5 mg/dL (8.4-10.2)
--- NOTE | 2017-11-26 09:03 | Progress Note ---
Assessment and Plan Assessment : * Acute kidney injury. Most likely ATN . patient has been initiated on renal replacement therapy on 11/23/17 * Respiratory failure * Metabolic acidosis * Hypokalemia * Severe anemia * Carotid artery disease . s/p carotid endarterectomy * Hypocalcemia Recommendations * No evidence of renal recovery . Schedule patient for hemodialysis today * Hypokalemia and hypocalcemia much improved * Acidosis has been corrected . Off bicarbonate * easley catheter has been removed . Check bladder scan * Prognosis remains very poor * Assess need for dialysis on daily basis . Subjective Date of service: 11/26/17 Principal diagnosis: GI bleed Interval history: patient remains on the ventilator via trache . On 30% FiO2 . Unresponsive . Remains off pressors Objective - Vital Signs Vital signs: Vital Signs - 12hr 11/25/17 11/25/17 11/25/17 21:00 21:02 21:30 Temperature Pulse Rate 80 99 H 80 Pulse Rate [ Right From Monitor] Respiratory 28 H 32 H 12 Rate Respiratory Rate [Joint] Blood Pressure 120/59 120/59 114/61 O2 Sat by Pulse 100 100 100 Oximetry 11/25/17 11/25/17 11/25/17 22:00 22:30 23:00 Temperature Pulse Rate 85 87 80 Pulse Rate [ 89 Right From Monitor] Respiratory 19 24 17 Rate Respiratory 30 H Rate [Joint] Blood Pressure 131/64 128/69 118/66 O2 Sat by Pulse 100 100 100 Oximetry 11/25/17 11/26/17 11/26/17 23:30 00:00 00:30 Temperature 98.4 F Pulse Rate 97 H 100 H 96 H Pulse Rate [ 87 Right From Monitor] Respiratory 17 20 17 Rate Respiratory Rate [Joint] Blood Pressure 129/71 130/73 122/69 O2 Sat by Pulse 98 100 99 Oximetry 11/26/17 11/26/17 11/26/17 01:00 01:17 01:30 Temperature Pulse Rate 78 82 83 Pulse Rate [ 85 Right From Monitor] Respiratory 20 20 Rate Respiratory Rate [Joint] Blood Pressure 97/53 110/59 112/64 O2 Sat by Pulse 100 100 100 Oximetry 11/26/17 11/26/17 11/26/17 02:00 02:30 03:00 Temperature Pulse Rate 81 81 82 Pulse Rate [ Right From Monitor] Respiratory 15 18 12 Rate Respiratory Rate [Joint] Blood Pressure 111/58 137/68 114/61 O2 Sat by Pulse 100 100 100 Oximetry 11/26/17 11/26/17 11/26/17 03:30 04:00 04:03 Temperature 97.8 F Pulse Rate 77 85 Pulse Rate [ 85 Right From Monitor] Respiratory 15 16 20 Rate Respiratory Rate [Joint] Blood Pressure 119/64 119/65 O2 Sat by Pulse 100 99 100 Oximetry 11/26/17 11/26/17 11/26/17 04:30 05:01 05:30 Temperature Pulse Rate 92 H 79 86 Pulse Rate [ Right From Monitor] Respiratory 20 17 15 Rate Respiratory Rate [Joint] Blood Pressure 139/80 108/55 97/55 O2 Sat by Pulse 100 99 100 Oximetry 11/26/17 11/26/17 11/26/17 06:00 06:28 06:31 Temperature Pulse Rate 89 90 97 H Pulse Rate [ 85 Right From Monitor] Respiratory 17 17 Rate Respiratory Rate [Joint] Blood Pressure 141/78 112/56 97/55 O2 Sat by Pulse 100 100 100 Oximetry 11/26/17 11/26/17 11/26/17 07:00 07:30 08:00 Temperature 98.3 F Pulse Rate 72 77 80 Pulse Rate [ Right From Monitor] Respiratory 14 14 17 Rate Respiratory Rate [Joint] Blood Pressure 112/53 118/55 106/57 O2 Sat by Pulse 100 99 100 Oximetry - General Appearance General appearance: well-developed, well-nourished, appears stated age, intubated EENT: PERRL, mucous membranes moist Neck: no JVD, no thyromegaly Respiratory: Present: Ronchi Cardiology: regular, normal heart rate Gastrointestinal: normal, normoactive bowel sounds Integumentary: other (1+ edema . Left femoral vascath in place ) - Lab 11/25/17 04:19 11/26/17 06:34 Most recent lab results Calcium 7.5 mg/dL (8.4-10.2) L 11/26/17 06:34 Magnesium 2.00 mg/dL (1.7-2.3) 11/24/17 21:53
[2017-11-26] MEDS ORDERED: NACL 0.9% 100 ML IV PRN (09:04)
[2017-11-26] MEDS ORDERED: VERSED IV ONE ×2 (12:26→12:28)
[2017-11-26] MEDS ORDERED: SUBLIMAZE ONE (12:27)
[2017-11-26] MEDS ORDERED: SUBLIMAZE IV ONE (12:28)
--- NOTE | 2017-11-26 13:05 | Progress Note ---
Assessment and Plan - Patient Problems (1) Gastrostomy malfunction Current Visit: Yes Status: Acute Plan to address problem: Pt is stable. After reviewing the records, discussing the case with multiple attendings, and seeing the patient, it is clear that we do not have an acute perforation. Most likely, the PEG tube started to migrate out of position prior to 11/18 as evidenced by no PEG button seen on EGD and no obvious hole in the stomach. As the contrast is restricted to certain areas in the abdomen, the fluid is loculated. The "ascites" may be tube feeds and/or reactionary fluid. Regardless, patient is not showing signs of obvious peritonitis. In this case, it may be prudent to try placing a few drains in the abdomen to remove that largest collections. I have already discussed this case with Dr. Moreira who agreed to review the case and see if that was possible. The alternative would be to take the patient for an ex-lap and washout the abdomen. I'm concerned that there may be a lot of inflammatory changes in the abdomen which would put him at risk for bowel injuries from the procedure. Therefore, this will be our back-up plan if the drains do not resolve the problem. As for nutritional access , for now, I would recommend an NGT. I doubt he has an active leak, so there is no need to test the stomach prior to using it. I have explained this plan in detail to the daughter (Jannette) and the attendings from ICU, GI, and hospitalist service. All were in agreement. - 11/25/17 Initial Consult Pt appears stable. Await IR scheduling for drain placement. May place NGT/ dobhoff and start tube feeds after drains are placed. Will remove PEG once the drains are in place to minimize potentional mess from fluids leaking out. 1) IR for drain placement 2) NGT for nutrition 3) Serial exams. Please call with questions. Time=10min Subjective Date of service: 11/26/17 Patient Reports: Positive: other (no new events) Objective Vital Signs - 12hr 11/26/17 11/26/17 11/26/17 01:17 01:30 02:00 Temperature Pulse Rate 82 83 81 Pulse Rate [ Right From Monitor] Respiratory 20 15 Rate Respiratory Rate [Upper Back] Blood Pressure 110/59 112/64 111/58 O2 Sat by Pulse 100 100 100 Oximetry O2 Sat by Pulse Oximetry [ Bilateral Throughout] 11/26/17 11/26/17 11/26/17 02:30 03:00 03:30 Temperature Pulse Rate 81 82 77 Pulse Rate [ Right From Monitor] Respiratory 18 12 15 Rate Respiratory Rate [Upper Back] Blood Pressure 137/68 114/61 119/64 O2 Sat by Pulse 100 100 100 Oximetry O2 Sat by Pulse Oximetry [ Bilateral Throughout] 11/26/17 11/26/17 11/26/17 04:00 04:03 04:30 Temperature 97.8 F Pulse Rate 85 92 H Pulse Rate [ 85 Right From Monitor] Respiratory 16 20 20 Rate Respiratory Rate [Upper Back] Blood Pressure 119/65 139/80 O2 Sat by Pulse 99 100 100 Oximetry O2 Sat by Pulse Oximetry [ Bilateral Throughout] 11/26/17 11/26/17 11/26/17 05:01 05:30 06:00 Temperature Pulse Rate 79 86 89 Pulse Rate [ 85 Right From Monitor] Respiratory 17 15 17 Rate Respiratory Rate [Upper Back] Blood Pressure 108/55 97/55 141/78 O2 Sat by Pulse 99 100 100 Oximetry O2 Sat by Pulse Oximetry [ Bilateral Throughout] 11/26/17 11/26/17 11/26/17 06:28 06:31 07:00 Temperature Pulse Rate 90 97 H 72 Pulse Rate [ Right From Monitor] Respiratory 17 14 Rate Respiratory Rate [Upper Back] Blood Pressure 112/56 97/55 112/53 O2 Sat by Pulse 100 100 100 Oximetry O2 Sat by Pulse Oximetry [ Bilateral Throughout] 11/26/17 11/26/17 11/26/17 07:30 08:00 08:30 Temperature 98.3 F Pulse Rate 77 80 75 Pulse Rate [ Right From Monitor] Respiratory 14 17 13 Rate Respiratory Rate [Upper Back] Blood Pressure 118/55 106/57 114/60 O2 Sat by Pulse 99 100 98 Oximetry O2 Sat by Pulse Oximetry [ Bilateral Throughout] 11/26/17 11/26/17 11/26/17 08:47 09:00 09:15 Temperature 98.3 F Pulse Rate 86 84 80 Pulse Rate [ Right From Monitor] Respiratory 19 18 Rate Respiratory Rate [Upper Back] Blood Pressure 122/65 122/65 122/81 O2 Sat by Pulse 98 98 Oximetry O2 Sat by Pulse 100 Oximetry [ Bilateral Throughout] 11/26/17 11/26/17 11/26/17 09:30 09:45 10:00 Temperature Pulse Rate 77 79 90 Pulse Rate [ Right From Monitor] Respiratory 22 16 Rate Respiratory 20 Rate [Upper Back] Blood Pressure 120/63 122/81 136/85 O2 Sat by Pulse 97 98 Oximetry O2 Sat by Pulse Oximetry [ Bilateral Throughout] 11/26/17 11/26/17 11/26/17 10:15 10:30 10:45 Temperature Pulse Rate 81 90 74 Pulse Rate [ Right From Monitor] Respiratory Rate Respiratory Rate [Upper Back] Blood Pressure 118/80 117/78 122/80 O2 Sat by Pulse Oximetry O2 Sat by Pulse Oximetry [ Bilateral Throughout] 11/26/17 11/26/17 11/26/17 11:05 11:15 11:30 Temperature Pulse Rate 92 H 77 90 Pulse Rate [ Right From Monitor] Respiratory Rate Respiratory Rate [Upper Back] Blood Pressure 132/90 128/79 126/81 O2 Sat by Pulse Oximetry O2 Sat by Pulse Oximetry [ Bilateral Throughout] 11/26/17 11/26/17 11/26/17 11:45 12:00 12:15 Temperature Pulse Rate 95 H 90 79 Pulse Rate [ Right From Monitor] Respiratory Rate Respiratory Rate [Upper Back] Blood Pressure 135/97 146/86 119/77 O2 Sat by Pulse Oximetry O2 Sat by Pulse Oximetry [ Bilateral Throughout] 11/26/17 11/26/17 12:30 12:44 Temperature 98.3 F Pulse Rate 77 103 H Pulse Rate [ Right From Monitor] Respiratory 22 Rate Respiratory Rate [Upper Back] Blood Pressure 133/85 133/85 O2 Sat by Pulse Oximetry O2 Sat by Pulse 100 Oximetry [ Bilateral Throughout] - General physical appearance no distress, no pain, other (awake. Intermittently interacting?) - Respiratory normal expansion, normal respiratory effort - Abdomen soft, not tender, distended, not guarding, not rigid - Labs 11/25/17 04:19 11/26/17 06:34 Diabetes panel 11/26/17 Range/Units 06:34 Sodium 141 (137-145) mmol/L Potassium 4.3 (3.6-5.0) mmol/L Chloride 99.7 (98-107) mmol/L Carbon Dioxide 24 (22-30) mmol/L BUN 43 H (9-20) mg/dL Creatinine 3.5 H (0.8-1.5) mg/dL Glucose 93 (75-100) mg/dL Calcium 7.5 L (8.4-10.2) mg/dL Calcium panel 11/26/17 Range/Units 06:34 Calcium 7.5 L (8.4-10.2) mg/dL Pituitary panel 11/26/17 Range/Units 06:34 Sodium 141 (137-145) mmol/L Potassium 4.3 (3.6-5.0) mmol/L Chloride 99.7 (98-107) mmol/L Carbon Dioxide 24 (22-30) mmol/L BUN 43 H (9-20) mg/dL Creatinine 3.5 H (0.8-1.5) mg/dL Glucose 93 (75-100) mg/dL Calcium 7.5 L (8.4-10.2) mg/dL Adrenal panel 11/26/17 Range/Units 06:34 Sodium 141 (137-145) mmol/L Potassium 4.3 (3.6-5.0) mmol/L Chloride 99.7 (98-107) mmol/L Carbon Dioxide 24 (22-30) mmol/L BUN 43 H (9-20) mg/dL Creatinine 3.5 H (0.8-1.5) mg/dL Glucose 93 (75-100) mg/dL Calcium 7.5 L (8.4-10.2) mg/dL
--- NOTE | 2017-11-26 13:38 | Progress Note ---
Assessment and Plan Imp: 1. CVA 2. Hemiparesis 3. Aspiration pneumonitis related to above 4. Sepsis 5. DARYA 6. s/p Trach/PEG Rec: 1. Volume removal given anasarca although "ascites" on CT a/p may actually be tube feeds; awaiting IR eval. for drainage; appreciate GI and surgery input 2. Cont. Zosyn given CT a/p results; repeat lactic acid and CBC in AM 3. Do not use PEG -> RN aware; needs to be removed MARCELA; NGT feeds okay per surgery 4. SCDs; GI PPx 5. Hold tpiece today since he is having HD and going for abdominal drainage, but can resume in AM; trach will need to be permanent for secretion clearance 6. Monitor off pressors 7. Monitor H/H 8. Insurance denies LTAC coverage Long-term prognosis poor; no family present CCt 31 minutes Subjective Date of service: 11/26/17 Principal diagnosis: GI bleed Interval history: Off sedation. Arouses. Moves RUE. Off pressors. On HD this AM. Active Medications Acetaminophen (Tylenol) 650 mg IN Q4H PRN PRN Reason: Pain MILD(1-3)/Fever >100.5/CABELLO Last Admin: 11/22/17 09:07 Dose: 650 mg Lipase/Protease/Amylase (Pancreaze Dr 10,500 Unit) 1 each FEEDTUBE PRN PRN PRN Reason: For Clogged Feeding Tube Fentanyl Citrate (Fentanyl Drip Premix) 2,000 mcg in 100 mls @ 3.969 mls/hr IV TITR OSIRIS; Protocol Last Titration: 11/12/17 04:07 Dose: 5 mcg/kg/hr, 19.845 mls/hr Propofol (Diprivan 10 Mg/Ml) 1,000 mg in 100 mls @ 2.381 mls/hr IV TITR OSIRIS; Protocol Last Titration: 11/17/17 19:32 Dose: 10 mcg/kg/min, 4.763 mls/hr Norepinephrine 8 mg/ Sodium (Chloride) 250 mls @ 3.75 mls/hr IV TITR OSIRIS; Protocol Last Titration: 11/23/17 04:00 Dose: 0 mcg/min, 0 mls/hr Phenylephrine HCl 100 mg/ (Sodium Chloride) 100 mls @ 3 mls/hr IV TITR OSIRIS; Protocol Last Titration: 11/22/17 00:10 Dose: 0 mcg/min, 0 mls/hr Piperacillin Sod/Tazobactam Sod (Zosyn/Ns 2.25 Gm/50ml) 2.25 gm in 50 mls @ 100 mls/hr IV Q8HR OSIRIS; Protocol Stop: 11/28/17 23:59 Last Admin: 11/26/17 06:00 Dose: 100 mls/hr Sodium Chloride (Nacl 0.9%) 100 mls @ 999 mls/hr IV TIM PRN PRN Reason: Hypotension Ondansetron HCl (Zofran) 4 mg IV Q8H PRN PRN Reason: Nausea And Vomiting Pantoprazole Sodium (Protonix) 40 mg IV BID OSIRIS Sodium Chloride (Sodium Chloride Flush Syringe 10 Ml) 10 ml IV BID OSIRIS Last Admin: 11/26/17 00:57 Dose: 10 ml Sodium Chloride (Sodium Chloride Flush Syringe 10 Ml) 10 ml IV PRN PRN PRN Reason: LINE FLUSH Objective Vital Signs - 12hr 11/26/17 11/26/17 11/26/17 02:00 02:30 03:00 Temperature Pulse Rate 81 81 82 Pulse Rate [ Right From Monitor] Respiratory 15 18 12 Rate Respiratory Rate [Upper Back] Blood Pressure 111/58 137/68 114/61 O2 Sat by Pulse 100 100 100 Oximetry O2 Sat by Pulse Oximetry [ Bilateral Throughout] 11/26/17 11/26/17 11/26/17 03:30 04:00 04:03 Temperature 97.8 F Pulse Rate 77 85 Pulse Rate [ 85 Right From Monitor] Respiratory 15 16 20 Rate Respiratory Rate [Upper Back] Blood Pressure 119/64 119/65 O2 Sat by Pulse 100 99 100 Oximetry O2 Sat by Pulse Oximetry [ Bilateral Throughout] 11/26/17 11/26/17 11/26/17 04:30 05:01 05:30 Temperature Pulse Rate 92 H 79 86 Pulse Rate [ Right From Monitor] Respiratory 20 17 15 Rate Respiratory Rate [Upper Back] Blood Pressure 139/80 108/55 97/55 O2 Sat by Pulse 100 99 100 Oximetry O2 Sat by Pulse Oximetry [ Bilateral Throughout] 11/26/17 11/26/17 11/26/17 06:00 06:28 06:31 Temperature Pulse Rate 89 90 97 H Pulse Rate [ 85 Right From Monitor] Respiratory 17 17 Rate Respiratory Rate [Upper Back] Blood Pressure 141/78 112/56 97/55 O2 Sat by Pulse 100 100 100 Oximetry O2 Sat by Pulse Oximetry [ Bilateral Throughout] 11/26/17 11/26/17 11/26/17 07:00 07:30 08:00 Temperature 98.3 F Pulse Rate 72 77 80 Pulse Rate [ Right From Monitor] Respiratory 14 14 17 Rate Respiratory Rate [Upper Back] Blood Pressure 112/53 118/55 106/57 O2 Sat by Pulse 100 99 100 Oximetry O2 Sat by Pulse Oximetry [ Bilateral Throughout] 11/26/17 11/26/17 11/26/17 08:30 08:47 09:00 Temperature Pulse Rate 75 86 84 Pulse Rate [ Right From Monitor] Respiratory 13 19 Rate Respiratory Rate [Upper Back] Blood Pressure 114/60 122/65 122/65 O2 Sat by Pulse 98 98 98 Oximetry O2 Sat by Pulse Oximetry [ Bilateral Throughout] 11/26/17 11/26/17 11/26/17 09:15 09:30 09:45 Temperature 98.3 F Pulse Rate 80 77 79 Pulse Rate [ Right From Monitor] Respiratory 18 22 Rate Respiratory Rate [Upper Back] Blood Pressure 122/81 120/63 122/81 O2 Sat by Pulse 97 Oximetry O2 Sat by Pulse 100 Oximetry [ Bilateral Throughout] 11/26/17 11/26/17 11/26/17 10:00 10:15 10:30 Temperature Pulse Rate 90 81 90 Pulse Rate [ Right From Monitor] Respiratory 16 Rate Respiratory 20 Rate [Upper Back] Blood Pressure 136/85 118/80 117/78 O2 Sat by Pulse 98 Oximetry O2 Sat by Pulse Oximetry [ Bilateral Throughout] 11/26/17 11/26/17 11/26/17 10:45 11:05 11:15 Temperature Pulse Rate 74 92 H 77 Pulse Rate [ Right From Monitor] Respiratory Rate Respiratory Rate [Upper Back] Blood Pressure 122/80 132/90 128/79 O2 Sat by Pulse Oximetry O2 Sat by Pulse Oximetry [ Bilateral Throughout] 11/26/17 11/26/17 11/26/17 11:30 11:45 12:00 Temperature Pulse Rate 90 95 H 90 Pulse Rate [ Right From Monitor] Respiratory Rate Respiratory Rate [Upper Back] Blood Pressure 126/81 135/97 146/86 O2 Sat by Pulse Oximetry O2 Sat by Pulse Oximetry [ Bilateral Throughout] 11/26/17 11/26/17 11/26/17 12:15 12:30 12:44 Temperature 98.3 F Pulse Rate 79 77 103 H Pulse Rate [ Right From Monitor] Respiratory 22 Rate Respiratory Rate [Upper Back] Blood Pressure 119/77 133/85 133/85 O2 Sat by Pulse Oximetry O2 Sat by Pulse 100 Oximetry [ Bilateral Throughout] Constitutional: other (s/p trach, critically ill) Eyes: non-icteric ENT: oropharynx moist Neck: supple Effort: normal Ascultation: Bilateral: other (coarse BS bilaterally) Cardiovascular: regular rate and rhythm (no mrg) Gastrointestinal: normoactive bowel sounds, soft, non-tender, other (distended) Integumentary: normal Extremities: no cyanosis, pink and warm, anasarca Neurologic: other (L hemiparesis, sedated) Psychiatric: other (unable to assess) CBC and BMP: 11/25/17 04:19 11/26/17 06:34 ABG, PT/INR, D-dimer: ABG POC ABG pH 7.505 (7.35-7.45) H 11/23/17 04:56 POC ABG pCO2 26.3 (35-45) L 11/23/17 04:56 POC ABG pO2 100 (80-105) 11/23/17 04:56 POC ABG HCO3 20.8 11/23/17 04:56 POC ABG Total CO2 22 11/23/17 04:56 POC ABG O2 Sat 98 11/23/17 04:56 PT/INR, D-dimer PT 23.6 Sec. (12.2-14.9) H 11/26/17 06:29 INR 1.96 (0.87-1.13) H 11/26/17 06:29 Abnormal lab findings: Abnormal Labs 11/11/17 11/11/17 11/11/17 23:18 23:20 23:20 WBC RBC Hgb 10.4 L Hct 32.6 L D MCV MCH 27 L MCHC RDW 17.4 H Plt Count 105 L Lymph % (Auto) [place] % (Auto) Lymph # [place] # Seg Neutrophils % Seg Neuts % (Manual) Lymphocytes % (Manual) 8.0 L Monocytes % (Manual) Nucleated RBC % 1.0 H Seg Neutrophils # Seg Neutrophils # Man Lymphocytes # (Manual) 0.7 L Monocytes # (Manual) PT INR POC ABG pH 7.550 H POC ABG pCO2 31.6 L POC ABG pO2 Sodium 146 H Potassium Chloride Carbon Dioxide BUN 26 H Creatinine 1.7 H D Glucose 133 H POC Glucose Lactic Acid Calcium Magnesium AST ALT Alkaline Phosphatase Troponin T 0.117 H* C-Reactive Protein Total Protein Albumin 2.5 L LDL Cholesterol Direct 42 L HDL Cholesterol 24 L Hepatitis C Antibody Crossmatch 11/11/17 11/12/17 11/12/17 23:20 00:23 00:23 WBC RBC Hgb Hct MCV MCH MCHC RDW Plt Count Lymph % (Auto) [place] % (Auto) Lymph # [place] # Seg Neutrophils % Seg Neuts % (Manual) Lymphocytes % (Manual) Monocytes % (Manual) Nucleated RBC % Seg Neutrophils # Seg Neutrophils # Man Lymphocytes # (Manual) Monocytes # (Manual) PT 16.7 H INR 1.28 H POC ABG pH POC ABG pCO2 POC ABG pO2 Sodium Potassium Chloride Carbon Dioxide BUN Creatinine Glucose POC Glucose Lactic Acid 3.20 H* Calcium Magnesium AST ALT Alkaline Phosphatase Troponin T C-Reactive Protein 25.70 H Total Protein Albumin LDL Cholesterol Direct HDL Cholesterol Hepatitis C Antibody Crossmatch 11/12/17 11/12/17 11/12/17 00:46 01:27 01:27 WBC RBC Hgb Hct MCV MCH MCHC RDW Plt Count Lymph % (Auto) [place] % (Auto) Lymph # [place] # Seg Neutrophils % Seg Neuts % (Manual) Lymphocytes % (Manual) Monocytes % (Manual) Nucleated RBC % Seg Neutrophils # Seg Neutrophils # Man Lymphocytes # (Manual) Monocytes # (Manual) PT INR POC ABG pH 7.495 H POC ABG pCO2 32.0 L POC ABG pO2 64 L Sodium Potassium Chloride Carbon Dioxide BUN Creatinine Glucose POC Glucose Lactic Acid 3.70 H* Calcium Magnesium AST ALT Alkaline Phosphatase Troponin T 0.096 H C-Reactive Protein Total Protein Albumin LDL Cholesterol Direct HDL Cholesterol Hepatitis C Antibody Crossmatch 11/12/17 11/12/17 11/12/17 03:21 04:50 06:27 WBC RBC Hgb Hct MCV MCH MCHC RDW Plt Count Lymph % (Auto) [place] % (Auto) Lymph # [place] # Seg Neutrophils % Seg Neuts % (Manual) Lymphocytes % (Manual) Monocytes % (Manual) Nucleated RBC % Seg Neutrophils # Seg Neutrophils # Man Lymphocytes # (Manual) Monocytes # (Manual) PT INR POC ABG pH POC ABG pCO2 POC ABG pO2 109 H Sodium Potassium Chloride Carbon Dioxide BUN Creatinine Glucose POC Glucose Lactic Acid 3.80 H* 2.20 H* Calcium Magnesium AST ALT Alkaline Phosphatase Troponin T C-Reactive Protein Total Protein Albumin LDL Cholesterol Direct HDL Cholesterol Hepatitis C Antibody Crossmatch 11/12/17 11/12/17 11/12/17 09:24 09:24 09:24 WBC RBC Hgb 10.4 L Hct 33.4 L MCV MCH MCHC RDW Plt Count Lymph % (Auto) [place] % (Auto) Lymph # [place] # Seg Neutrophils % Seg Neuts % (Manual) Lymphocytes % (Manual) Monocytes % (Manual) Nucleated RBC % Seg Neutrophils # Seg Neutrophils # Man Lymphocytes # (Manual) Monocytes # (Manual) PT INR POC ABG pH POC ABG pCO2 POC ABG pO2 Sodium Potassium Chloride Carbon Dioxide BUN Creatinine Glucose POC Glucose Lactic Acid 2.90 H* Calcium Magnesium AST ALT Alkaline Phosphatase Troponin T 0.091 H C-Reactive Protein Total Protein Albumin LDL Cholesterol Direct HDL Cholesterol Hepatitis C Antibody Crossmatch 11/12/17 11/12/17 11/12/17 12:56 20:03 Unknown WBC RBC Hgb Hct MCV MCH MCHC RDW Plt Count Lymph % (Auto) [place] % (Auto) Lymph # [place] # Seg Neutrophils % Seg Neuts % (Manual) Lymphocytes % (Manual) Monocytes % (Manual) Nucleated RBC % Seg Neutrophils # Seg Neutrophils # Man Lymphocytes # (Manual) Monocytes # (Manual) PT INR POC ABG pH POC ABG pCO2 POC ABG pO2 Sodium Potassium Chloride Carbon Dioxide BUN Creatinine Glucose POC Glucose Lactic Acid 3.60 H* Calcium Magnesium AST ALT Alkaline Phosphatase Troponin T 0.102 H* 0.156 H* D C-Reactive Protein Total Protein Albumin LDL Cholesterol Direct HDL Cholesterol Hepatitis C Antibody Crossmatch 11/12/17 11/13/17 11/13/17 Unknown 04:50 04:50 WBC 12.2 H RBC 3.51 L Hgb 9.3 L Hct 30.1 L MCV MCH 26 L MCHC 31 L RDW 18.0 H Plt Count 128 L Lymph % (Auto) 8.6 L [place] % (Auto) 11.1 H Lymph # 1.1 L [place] # 1.4 H Seg Neutrophils % 80.1 H Seg Neuts % (Manual) Lymphocytes % (Manual) Monocytes % (Manual) Nucleated RBC % Seg Neutrophils # 9.8 H Seg Neutrophils # Man Lymphocytes # (Manual) Monocytes # (Manual) PT INR POC ABG pH POC ABG pCO2 POC ABG pO2 Sodium 149 H Potassium 5.1 H Chloride 114.4 H Carbon Dioxide 18 L BUN 52 H Creatinine 3.3 H D Glucose 129 H POC Glucose Lactic Acid Calcium 7.9 L Magnesium AST ALT Alkaline Phosphatase Troponin T 0.098 H C-Reactive Protein Total Protein Albumin LDL Cholesterol Direct HDL Cholesterol Hepatitis C Antibody Crossmatch 11/13/17 11/13/17 11/14/17 04:51 09:34 04:21 WBC RBC Hgb Hct MCV MCH MCHC RDW Plt Count Lymph % (Auto) [place] % (Auto) Lymph # [place] # Seg Neutrophils % Seg Neuts % (Manual) Lymphocytes % (Manual) Monocytes % (Manual) Nucleated RBC % Seg Neutrophils # Seg Neutrophils # Man Lymphocytes # (Manual) Monocytes # (Manual) PT INR POC ABG pH POC ABG pCO2 30.1 L 29.8 L POC ABG pO2 135 H Sodium Potassium Chloride Carbon Dioxide BUN Creatinine Glucose POC Glucose Lactic Acid 2.10 H* Calcium Magnesium AST ALT Alkaline Phosphatase Troponin T C-Reactive Protein Total Protein Albumin LDL Cholesterol Direct HDL Cholesterol Hepatitis C Antibody Crossmatch 11/15/17 11/15/17 11/16/17 04:52 15:50 05:17 WBC RBC Hgb Hct MCV MCH MCHC RDW Plt Count Lymph % (Auto) [place] % (Auto) Lymph # [place] # Seg Neutrophils % Seg Neuts % (Manual) Lymphocytes % (Manual) Monocytes % (Manual) Nucleated RBC % Seg Neutrophils # Seg Neutrophils # Man Lymphocytes # (Manual) Monocytes # (Manual) PT INR POC ABG pH POC ABG pCO2 29.5 L 31.5 L POC ABG pO2 115 H 122 H Sodium 154 H Potassium Chloride 117.9 H Carbon Dioxide 19 L BUN 87 H Creatinine 4.1 H Glucose POC Glucose Lactic Acid Calcium 8.1 L Magnesium AST ALT Alkaline Phosphatase Troponin T C-Reactive Protein Total Protein Albumin LDL Cholesterol Direct HDL Cholesterol Hepatitis C Antibody Crossmatch 11/16/17 11/17/17 11/17/17 16:37 04:07 10:00 WBC 14.7 H RBC 3.23 L Hgb 8.3 L Hct 28.1 L MCV MCH 26 L MCHC 30 L RDW 18.8 H Plt Count Lymph % (Auto) [place] % (Auto) Lymph # [place] # Seg Neutrophils % Seg Neuts % (Manual) 75 H Lymphocytes % (Manual) 8.0 L Monocytes % (Manual) Nucleated RBC % 1.0 H Seg Neutrophils # Seg Neutrophils # Man 11.0 H Lymphocytes # (Manual) Monocytes # (Manual) 0.9 H PT INR POC ABG pH POC ABG pCO2 POC ABG pO2 Sodium 153 H 155 H Potassium Chloride 117.3 H 119.4 H Carbon Dioxide 19 L 20 L BUN 90 H 89 H Creatinine 3.9 H 3.6 H Glucose 111 H 115 H POC Glucose Lactic Acid Calcium 8.1 L 8.0 L Magnesium AST ALT Alkaline Phosphatase Troponin T C-Reactive Protein Total Protein Albumin LDL Cholesterol Direct HDL Cholesterol Hepatitis C Antibody Crossmatch 11/18/17 11/18/17 11/18/17 04:34 04:34 04:34 WBC 15.5 H RBC 3.13 L Hgb 8.1 L Hct 26.3 L MCV MCH 26 L MCHC 31 L RDW 18.6 H Plt Count Lymph % (Auto) [place] % (Auto) Lymph # [place] # Seg Neutrophils % Seg Neuts % (Manual) 81.0 H Lymphocytes % (Manual) 7.0 L Monocytes % (Manual) Nucleated RBC % 1.0 H Seg Neutrophils # Seg Neutrophils # Man 12.6 H Lymphocytes # (Manual) 1.1 L Monocytes # (Manual) PT 16.7 H INR 1.30 H POC ABG pH POC ABG pCO2 POC ABG pO2 Sodium 155 H Potassium 3.2 L Chloride 121.0 H Carbon Dioxide 20 L BUN 74 H Creatinine 2.9 H Glucose 126 H POC Glucose Lactic Acid Calcium 7.9 L Magnesium AST ALT Alkaline Phosphatase Troponin T C-Reactive Protein Total Protein Albumin LDL Cholesterol Direct HDL Cholesterol Hepatitis C Antibody Crossmatch 11/19/17 11/19/17 11/20/17 04:44 04:44 00:38 WBC 19.0 H 22.2 H RBC 3.20 L 3.17 L Hgb 8.4 L 7.9 L Hct 27.9 L 26.4 L MCV 83 L MCH 26 L 25 L MCHC 30 L 30 L RDW 19.1 H 18.9 H Plt Count Lymph % (Auto) [place] % (Auto) Lymph # [place] # Seg Neutrophils % Seg Neuts % (Manual) 83.0 H Lymphocytes % (Manual) 3.0 L Monocytes % (Manual) 9.0 H Nucleated RBC % Seg Neutrophils # Seg Neutrophils # Man 18.4 H Lymphocytes # (Manual) 0.7 L Monocytes # (Manual) 2.0 H PT INR POC ABG pH POC ABG pCO2 POC ABG pO2 Sodium 152 H Potassium Chloride 117.1 H Carbon Dioxide 17 L BUN 66 H Creatinine 2.8 H Glucose 119 H POC Glucose Lactic Acid Calcium 7.8 L Magnesium 2.70 H AST ALT Alkaline Phosphatase Troponin T C-Reactive Protein Total Protein Albumin LDL Cholesterol Direct HDL Cholesterol Hepatitis C Antibody Crossmatch 11/20/17 11/20/17 11/20/17 03:29 04:48 13:38 WBC RBC Hgb Hct MCV MCH MCHC RDW Plt Count Lymph % (Auto) [place] % (Auto) Lymph # [place] # Seg Neutrophils % Seg Neuts % (Manual) Lymphocytes % (Manual) Monocytes % (Manual) Nucleated RBC % Seg Neutrophils # Seg Neutrophils # Man Lymphocytes # (Manual) Monocytes # (Manual) PT INR POC ABG pH POC ABG pCO2 29.4 L POC ABG pO2 Sodium 148 H Potassium 3.4 L Chloride 113.7 H Carbon Dioxide 18 L BUN 59 H Creatinine 2.7 H Glucose 113 H POC Glucose 128 H Lactic Acid Calcium 7.8 L Magnesium AST ALT Alkaline Phosphatase Troponin T C-Reactive Protein Total Protein Albumin LDL Cholesterol Direct HDL Cholesterol Hepatitis C Antibody Crossmatch 11/20/17 11/20/17 11/21/17 17:38 23:40 00:13 WBC RBC Hgb 8.4 L Hct 28.0 L MCV MCH MCHC RDW Plt Count Lymph % (Auto) [place] % (Auto) Lymph # [place] # Seg Neutrophils % Seg Neuts % (Manual) Lymphocytes % (Manual) Monocytes % (Manual) Nucleated RBC % Seg Neutrophils # Seg Neutrophils # Man Lymphocytes # (Manual) Monocytes # (Manual) PT INR POC ABG pH POC ABG pCO2 POC ABG pO2 Sodium Potassium Chloride Carbon Dioxide BUN Creatinine Glucose POC Glucose 115 H 145 H Lactic Acid Calcium Magnesium AST ALT Alkaline Phosphatase Troponin T C-Reactive Protein Total Protein Albumin LDL Cholesterol Direct HDL Cholesterol Hepatitis C Antibody Crossmatch 11/21/17 11/21/17 11/21/17 04:30 04:30 04:58 WBC 21.0 H RBC Hgb 9.6 L Hct 32.7 L MCV MCH 25 L MCHC 29 L RDW 19.7 H Plt Count 746 H Lymph % (Auto) [place] % (Auto) Lymph # [place] # Seg Neutrophils % Seg Neuts % (Manual) Lymphocytes % (Manual) Monocytes % (Manual) Nucleated RBC % Seg Neutrophils # Seg Neutrophils # Man Lymphocytes # (Manual) Monocytes # (Manual) PT INR POC ABG pH POC ABG pCO2 POC ABG pO2 Sodium Potassium Chloride 109.4 H Carbon Dioxide 14 L BUN 59 H Creatinine 3.0 H Glucose 137 H POC Glucose 132 H Lactic Acid Calcium 7.6 L Magnesium AST ALT Alkaline Phosphatase Troponin T C-Reactive Protein Total Protein Albumin LDL Cholesterol Direct HDL Cholesterol Hepatitis C Antibody Crossmatch 11/21/17 11/21/17 11/21/17 06:30 13:43 14:17 WBC 38.2 H RBC Hgb 9.0 L Hct 32.3 L MCV MCH 25 L MCHC 28 L RDW 20.0 H Plt Count 766 H Lymph % (Auto) [place] % (Auto) Lymph # [place] # Seg Neutrophils % Seg Neuts % (Manual) 85.0 H Lymphocytes % (Manual) 1.0 L Monocytes % (Manual) Nucleated RBC % 2.0 H Seg Neutrophils # Seg Neutrophils # Man 32.5 H Lymphocytes # (Manual) 0.4 L Monocytes # (Manual) 2.3 H PT INR POC ABG pH POC ABG pCO2 18.6 L POC ABG pO2 121 H Sodium 146 H Potassium Chloride 110.9 H Carbon Dioxide 11 L BUN 62 H Creatinine 4.0 H Glucose 64 L POC Glucose Lactic Acid Calcium 7.6 L Magnesium AST ALT Alkaline Phosphatase Troponin T C-Reactive Protein Total Protein Albumin LDL Cholesterol Direct HDL Cholesterol Hepatitis C Antibody Crossmatch 11/21/17 11/21/17 11/22/17 14:17 19:09 00:05 WBC RBC Hgb Hct MCV MCH MCHC RDW Plt Count Lymph % (Auto) [place] % (Auto) Lymph # [place] # Seg Neutrophils % Seg Neuts % (Manual) Lymphocytes % (Manual) Monocytes % (Manual) Nucleated RBC % Seg Neutrophils # Seg Neutrophils # Man Lymphocytes # (Manual) Monocytes # (Manual) PT INR POC ABG pH POC ABG pCO2 20.0 L POC ABG pO2 Sodium Potassium Chloride Carbon Dioxide BUN Creatinine Glucose POC Glucose 127 H Lactic Acid 7.70 H* Calcium Magnesium AST ALT Alkaline Phosphatase Troponin T C-Reactive Protein Total Protein Albumin LDL Cholesterol Direct HDL Cholesterol Hepatitis C Antibody Crossmatch 11/22/17 11/22/17 11/22/17 03:53 06:00 07:25 WBC RBC Hgb Hct MCV MCH MCHC RDW Plt Count Lymph % (Auto) [place] % (Auto) Lymph # [place] # Seg Neutrophils % Seg Neuts % (Manual) Lymphocytes % (Manual) Monocytes % (Manual) Nucleated RBC % Seg Neutrophils # Seg Neutrophils # Man Lymphocytes # (Manual) Monocytes # (Manual) PT INR POC ABG pH POC ABG pCO2 22.2 L POC ABG pO2 Sodium 147 H Potassium Chloride 111.9 H Carbon Dioxide 16 L BUN 72 H Creatinine 5.1 H Glucose 181 H POC Glucose 180 H Lactic Acid Calcium 7.1 L Magnesium AST ALT Alkaline Phosphatase Troponin T C-Reactive Protein Total Protein Albumin LDL Cholesterol Direct HDL Cholesterol Hepatitis C Antibody Crossmatch 11/22/17 11/22/17 11/22/17 07:25 07:25 12:05 WBC 31.4 H RBC 3.22 L Hgb 8.0 L Hct 26.7 L MCV 83 L MCH 25 L MCHC 30 L RDW 19.4 H Plt Count 602 H Lymph % (Auto) [place] % (Auto) Lymph # [place] # Seg Neutrophils % Seg Neuts % (Manual) Lymphocytes % (Manual) Monocytes % (Manual) Nucleated RBC % Seg Neutrophils # Seg Neutrophils # Man Lymphocytes # (Manual) Monocytes # (Manual) PT INR POC ABG pH POC ABG pCO2 POC ABG pO2 Sodium Potassium Chloride Carbon Dioxide BUN Creatinine Glucose POC Glucose 182 H Lactic Acid 5.00 H* Calcium Magnesium AST ALT Alkaline Phosphatase Troponin T C-Reactive Protein Total Protein Albumin LDL Cholesterol Direct HDL Cholesterol Hepatitis C Antibody Crossmatch 11/22/17 11/23/17 11/23/17 19:45 01:28 04:56 WBC RBC Hgb Hct MCV MCH MCHC RDW Plt Count Lymph % (Auto) [place] % (Auto) Lymph # [place] # Seg Neutrophils % Seg Neuts % (Manual) Lymphocytes % (Manual) Monocytes % (Manual) Nucleated RBC % Seg Neutrophils # Seg Neutrophils # Man Lymphocytes # (Manual) Monocytes # (Manual) PT INR POC ABG pH 7.505 H POC ABG pCO2 26.3 L POC ABG pO2 Sodium Potassium Chloride Carbon Dioxide BUN Creatinine Glucose POC Glucose 165 H Lactic Acid Calcium Magnesium AST ALT Alkaline Phosphatase Troponin T C-Reactive Protein Total Protein Albumin LDL Cholesterol Direct HDL Cholesterol Hepatitis C Antibody Reactive A Crossmatch 11/23/17 11/23/17 11/23/17 07:05 12:32 17:53 WBC RBC Hgb Hct MCV MCH MCHC RDW Plt Count Lymph % (Auto) [place] % (Auto) Lymph # [place] # Seg Neutrophils % Seg Neuts % (Manual) Lymphocytes % (Manual) Monocytes % (Manual) Nucleated RBC % Seg Neutrophils # Seg Neutrophils # Man Lymphocytes # (Manual) Monocytes # (Manual) PT INR POC ABG pH POC ABG pCO2 POC ABG pO2 Sodium Potassium Chloride Carbon Dioxide 18 L BUN 61 H Creatinine 4.2 H Glucose 153 H POC Glucose 138 H 173 H Lactic Acid Calcium 7.5 L Magnesium AST ALT Alkaline Phosphatase Troponin T C-Reactive Protein Total Protein Albumin LDL Cholesterol Direct HDL Cholesterol Hepatitis C Antibody Crossmatch 11/23/17 11/24/17 11/24/17 23:41 05:42 05:42 WBC 21.5 H RBC 2.48 L Hgb 6.2 L Hct 20.3 L D MCV 82 L MCH 25 L MCHC 31 L RDW 18.9 H Plt Count Lymph % (Auto) [place] % (Auto) Lymph # [place] # Seg Neutrophils % Seg Neuts % (Manual) 94.0 H Lymphocytes % (Manual) 3.0 L Monocytes % (Manual) Nucleated RBC % Seg Neutrophils # Seg Neutrophils # Man 20.2 H Lymphocytes # (Manual) 0.6 L Monocytes # (Manual) PT INR POC ABG pH POC ABG pCO2 POC ABG pO2 Sodium 149 H Potassium 2.8 L* D Chloride 113.9 H Carbon Dioxide 19 L BUN 31 H Creatinine 2.3 H Glucose 103 H POC Glucose 133 H Lactic Acid Calcium 5.3 L* D Magnesium 1.30 L AST ALT Alkaline Phosphatase Troponin T C-Reactive Protein Total Protein Albumin LDL Cholesterol Direct HDL Cholesterol Hepatitis C Antibody Crossmatch 11/24/17 11/24/17 11/24/17 05:42 08:27 08:27 WBC RBC Hgb Hct MCV MCH MCHC RDW Plt Count Lymph % (Auto) [place] % (Auto) Lymph # [place] # Seg Neutrophils % Seg Neuts % (Manual) Lymphocytes % (Manual) Monocytes % (Manual) Nucleated RBC % Seg Neutrophils # Seg Neutrophils # Man Lymphocytes # (Manual) Monocytes # (Manual) PT INR POC ABG pH POC ABG pCO2 POC ABG pO2 Sodium Potassium Chloride Carbon Dioxide BUN Creatinine Glucose POC Glucose Lactic Acid 5.40 H* 5.20 H* Calcium Magnesium AST ALT Alkaline Phosphatase Troponin T C-Reactive Protein Total Protein Albumin LDL Cholesterol Direct HDL Cholesterol Hepatitis C Antibody Crossmatch See Detail 11/24/17 11/24/17 11/24/17 12:13 17:22 21:53 WBC 23.0 H RBC 3.32 L Hgb 8.8 L Hct 27.1 L D MCV 82 L MCH 26 L MCHC RDW 17.3 H Plt Count Lymph % (Auto) [place] % (Auto) Lymph # [place] # Seg Neutrophils % Seg Neuts % (Manual) Lymphocytes % (Manual) Monocytes % (Manual) Nucleated RBC % Seg Neutrophils # Seg Neutrophils # Man Lymphocytes # (Manual) Monocytes # (Manual) PT INR POC ABG pH POC ABG pCO2 POC ABG pO2 Sodium Potassium Chloride Carbon Dioxide BUN Creatinine Glucose POC Glucose 138 H 180 H Lactic Acid Calcium Magnesium AST ALT Alkaline Phosphatase Troponin T C-Reactive Protein Total Protein Albumin LDL Cholesterol Direct HDL Cholesterol Hepatitis C Antibody Crossmatch 11/24/17 11/24/17 11/25/17 21:53 23:28 04:19 WBC RBC Hgb Hct MCV MCH MCHC RDW Plt Count Lymph % (Auto) [place] % (Auto) Lymph # [place] # Seg Neutrophils % Seg Neuts % (Manual) Lymphocytes % (Manual) Monocytes % (Manual) Nucleated RBC % Seg Neutrophils # Seg Neutrophils # Man Lymphocytes # (Manual) Monocytes # (Manual) PT INR POC ABG pH POC ABG pCO2 POC ABG pO2 Sodium Potassium Chloride 96.3 L Carbon Dioxide BUN 28 H 31 H Creatinine 2.3 H 2.6 H Glucose 125 H 101 H POC Glucose 111 H Lactic Acid Calcium 7.5 L D 7.4 L Magnesium AST 170 H ALT 179 H Alkaline Phosphatase 175 H Troponin T C-Reactive Protein Total Protein 5.5 L Albumin 1.8 L LDL Cholesterol Direct HDL Cholesterol Hepatitis C Antibody Crossmatch 11/25/17 11/25/17 11/26/17 04:19 04:19 06:29 WBC 22.5 H RBC 3.48 L Hgb 9.1 L Hct 28.3 L MCV 81 L MCH 26 L MCHC RDW 17.4 H Plt Count Lymph % (Auto) [place] % (Auto) Lymph # [place] # Seg Neutrophils % Seg Neuts % (Manual) Lymphocytes % (Manual) Monocytes % (Manual) Nucleated RBC % Seg Neutrophils # Seg Neutrophils # Man Lymphocytes # (Manual) Monocytes # (Manual) PT 23.6 H INR 1.96 H POC ABG pH POC ABG pCO2 POC ABG pO2 Sodium Potassium Chloride Carbon Dioxide BUN 31 H Creatinine 2.6 H Glucose 101 H POC Glucose Lactic Acid Calcium 7.5 L Magnesium AST ALT Alkaline Phosphatase Troponin T C-Reactive Protein Total Protein Albumin LDL Cholesterol Direct HDL Cholesterol Hepatitis C Antibody Crossmatch 11/26/17 06:34 WBC RBC Hgb Hct MCV MCH MCHC RDW Plt Count Lymph % (Auto) [place] % (Auto) Lymph # [place] # Seg Neutrophils % Seg Neuts % (Manual) Lymphocytes % (Manual) Monocytes % (Manual) Nucleated RBC % Seg Neutrophils # Seg Neutrophils # Man Lymphocytes # (Manual) Monocytes # (Manual) PT INR POC ABG pH POC ABG pCO2 POC ABG pO2 Sodium Potassium Chloride Carbon Dioxide BUN 43 H Creatinine 3.5 H Glucose POC Glucose Lactic Acid Calcium 7.5 L Magnesium AST ALT Alkaline Phosphatase Troponin T C-Reactive Protein Total Protein Albumin LDL Cholesterol Direct HDL Cholesterol Hepatitis C Antibody Crossmatch Chest x-ray: report reviewed, image reviewed
[2017-11-26] MEDS ORDERED: XYLOCAINE 1%/ EPI 1:100,000 INFILTRATI ONE (13:50)
--- NOTE | 2017-11-26 14:49 | Event Note ---
Date: 11/26/17 Patient off of floor for IR drain placement.
--- NOTE | 2017-11-26 15:03 | Post Operative Note ---
Date of procedure: 11/26/17 Pre-op diagnosis: Multiple fluid collections Post-op diagnosis: same Findings: Extensive multifocal fluid collections Procedure: 1. CT guided placement of a 12 Fr RUQ drain in the perihepatic collection - 550 mL removed - serous 2. CT guided placement of a 12 Fr umbilical drain - 250 mL removed - cloudly and foul smelling 3. CT guided exchange of the LUQ gastrostomy tube (in the peritoneal cavity) for a 16 Fr drain - 600-800 mL removed (large amount leaked out once G tube removed) - cloudy and foul smelling Anesthesia: local (w/ conscious sedation) Surgeon: NICCI HONG Estimated blood loss: minimal Condition: stable Disposition: ICU
--- NOTE | 2017-11-26 15:34 | Progress Note ---
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 Recent Persantine stress test revealed a small basilar inferior defect of insignificance. Stable cardiac theodore. We will follow intermittently. Subjective Date of service: 11/26/17 Principal diagnosis: GI bleed Interval history: Patient is ventilated via trach. Stable sinus rhythm on telemetry. Objective Vital Signs Temp Pulse Pulse Pulse Pulse Resp Resp 11/26/17 14:54 127 H 29 H 11/26/17 14:49 100 H 29 H 11/26/17 14:44 105 H 28 H 11/26/17 14:39 98 H 27 H 11/26/17 14:34 108 H 26 H 11/26/17 14:29 107 H 31 H 11/26/17 14:24 103 H 28 H 11/26/17 14:19 103 H 29 H 11/26/17 14:14 101 H 28 H 11/26/17 14:11 24 11/26/17 14:09 80 25 H 11/26/17 14:04 95 H 22 11/26/17 14:00 119 H 25 H 11/26/17 13:55 97 H 25 H 11/26/17 13:50 92 H 25 H 11/26/17 13:45 97 H 25 H 11/26/17 13:41 24 11/26/17 13:40 121 H 11/26/17 13:26 105 H 11/26/17 12:44 98.3 F 103 H 22 11/26/17 12:30 77 11/26/17 12:15 79 11/26/17 12:00 90 11/26/17 11:45 95 H 11/26/17 11:30 90 11/26/17 11:15 77 11/26/17 11:05 92 H 11/26/17 10:45 74 11/26/17 10:30 90 11/26/17 10:15 81 11/26/17 10:00 90 16 11/26/17 09:45 79 11/26/17 09:30 77 22 11/26/17 09:15 98.3 F 80 18 11/26/17 09:00 84 19 11/26/17 08:47 86 11/26/17 08:30 75 13 11/26/17 08:00 98.3 F 80 17 11/26/17 07:30 77 14 11/26/17 07:00 72 14 11/26/17 06:31 97 H 17 11/26/17 06:28 90 11/26/17 06:00 89 85 17 11/26/17 05:30 86 15 11/26/17 05:01 79 17 11/26/17 04:30 92 H 20 11/26/17 04:03 85 20 11/26/17 04:00 97.8 F 85 16 11/26/17 03:30 77 15 11/26/17 03:00 82 12 11/26/17 02:30 81 18 11/26/17 02:00 81 15 11/26/17 01:30 83 20 11/26/17 01:17 82 11/26/17 01:00 78 85 20 11/26/17 00:30 96 H 17 11/26/17 00:00 98.4 F 100 H 87 20 11/25/17 23:30 97 H 17 11/25/17 23:00 80 17 11/25/17 22:30 87 24 11/25/17 22:00 85 89 19 11/25/17 21:30 80 12 11/25/17 21:02 99 H 32 H 11/25/17 21:00 80 28 H 11/25/17 20:30 94 H 28 H 11/25/17 20:00 98.5 F 70 86 26 H 11/25/17 19:30 81 26 H 11/25/17 19:11 84 27 H 11/25/17 19:00 84 29 H 11/25/17 18:30 84 22 11/25/17 18:08 11/25/17 18:05 78 27 H 11/25/17 18:00 77 22 11/25/17 17:30 71 25 H 11/25/17 17:00 76 24 11/25/17 16:30 79 24 11/25/17 16:00 97.2 F L 84 94 H 27 H 11/25/17 15:38 88 27 H Resp Resp Resp BP BP BP Pulse Ox 11/26/17 14:54 157/92 11/26/17 14:49 182/98 11/26/17 14:44 157/95 11/26/17 14:39 160/85 11/26/17 14:34 159/98 11/26/17 14:29 153/91 11/26/17 14:24 164/95 11/26/17 14:19 152/94 11/26/17 14:14 149/87 11/26/17 14:11 11/26/17 14:09 137/88 11/26/17 14:04 162/85 11/26/17 14:00 147/91 11/26/17 13:55 146/82 11/26/17 13:50 144/91 11/26/17 13:45 126/81 11/26/17 13:41 11/26/17 13:40 24 153/92 11/26/17 13:26 21 164/98 11/26/17 12:44 133/85 11/26/17 12:30 133/85 11/26/17 12:15 119/77 11/26/17 12:00 146/86 11/26/17 11:45 135/97 11/26/17 11:30 126/81 11/26/17 11:15 128/79 11/26/17 11:05 132/90 11/26/17 10:45 122/80 11/26/17 10:30 117/78 11/26/17 10:15 118/80 11/26/17 10:00 20 136/85 98 11/26/17 09:45 122/81 11/26/17 09:30 120/63 97 11/26/17 09:15 122/81 11/26/17 09:00 122/65 98 11/26/17 08:47 122/65 98 11/26/17 08:30 114/60 98 11/26/17 08:00 106/57 100 11/26/17 07:30 118/55 99 11/26/17 07:00 112/53 100 18 06:31 97/55 100 18 06:28 112/56 100 18 06:00 141/78 100 18 05:30 97/55 100 11/26/17 05:01 108/55 99 11/26/17 04:30 139/80 100 11/26/17 04:03 100 11/26/17 04:00 119/65 99 11/26/17 03:30 119/64 100 11/26/17 03:00 114/61 100 11/26/17 02:30 137/68 100 11/26/17 02:00 111/58 100 11/26/17 01:30 112/64 100 11/26/17 01:17 110/59 100 11/26/17 01:00 97/53 100 11/26/17 00:30 122/69 99 11/26/17 00:00 130/73 100 11/25/17 23:30 129/71 98 11/25/17 23:00 118/66 100 11/25/17 22:30 128/69 100 11/25/17 22:00 30 H 131/64 100 11/25/17 21:30 114/61 100 11/25/17 21:02 120/59 100 11/25/17 21:00 120/59 100 11/25/17 20:30 146/75 99 11/25/17 20:00 133/58 99 11/25/17 19:30 129/63 99 11/25/17 19:11 118/61 99 11/25/17 19:00 118/61 99 11/25/17 18:30 164/73 100 11/25/17 18:08 11/25/17 18:05 122/71 100 11/25/17 18:00 122/71 100 11/25/17 17:30 127/65 99 11/25/17 17:00 110/66 100 11/25/17 16:30 121/68 100 11/25/17 16:00 150/81 100 11/25/17 15:38 115/65 100 Pulse Ox Pulse Ox Pulse Ox Pulse Ox 11/26/17 14:54 100 11/26/17 14:49 100 11/26/17 14:44 100 11/26/17 14:39 98 11/26/17 14:34 98 11/26/17 14:29 100 11/26/17 14:24 100 11/26/17 14:19 100 11/26/17 14:14 100 11/26/17 14:11 11/26/17 14:09 100 11/26/17 14:04 100 11/26/17 14:00 100 11/26/17 13:55 100 11/26/17 13:50 100 11/26/17 13:45 100 11/26/17 13:41 11/26/17 13:40 100 11/26/17 13:26 100 11/26/17 12:44 100 11/26/17 12:30 11/26/17 12:15 11/26/17 12:00 11/26/17 11:45 11/26/17 11:30 11/26/17 11:15 11/26/17 11:05 11/26/17 10:45 11/26/17 10:30 11/26/17 10:15 11/26/17 10:00 11/26/17 09:45 11/26/17 09:30 11/26/17 09:15 100 11/26/17 09:00 11/26/17 08:47 11/26/17 08:30 11/26/17 08:00 11/26/17 07:30 11/26/17 07:00 11/26/17 06:31 11/26/17 06:28 11/26/17 06:00 11/26/17 05:30 11/26/17 05:01 11/26/17 04:30 11/26/17 04:03 11/26/17 04:00 11/26/17 03:30 11/26/17 03:00 11/26/17 02:30 11/26/17 02:00 11/26/17 01:30 11/26/17 01:17 11/26/17 01:00 11/26/17 00:30 11/26/17 00:00 11/25/17 23:30 11/25/17 23:00 11/25/17 22:30 11/25/17 22:00 11/25/17 21:30 11/25/17 21:02 11/25/17 21:00 11/25/17 20:30 11/25/17 20:00 11/25/17 19:30 11/25/17 19:11 11/25/17 19:00 11/25/17 18:30 11/25/17 18:08 100 11/25/17 18:05 11/25/17 18:00 11/25/17 17:30 11/25/17 17:00 11/25/17 16:30 11/25/17 16:00 11/25/17 15:38 - Physical Examination General: Other ( on the vent via trach) HEENT: Positive: PERRL Cardiac: Positive: Reg Rate and Rhythm - Labs and Meds Coagulation 11/26/17 Range/Units 06:29 PT 23.6 H (12.2-14.9) Sec. INR 1.96 H (0.87-1.13) APTT 33.8 (24.2-36.6) Sec. Comprehensive Metabolic Panel 11/26/17 Range/Units 06:34 Sodium 141 (137-145) mmol/L Potassium 4.3 (3.6-5.0) mmol/L Chloride 99.7 (98-107) mmol/L Carbon Dioxide 24 (22-30) mmol/L BUN 43 H (9-20) mg/dL Creatinine 3.5 H (0.8-1.5) mg/dL Glucose 93 (75-100) mg/dL Calcium 7.5 L (8.4-10.2) mg/dL
--- NOTE | 2017-11-26 17:36 | XRay Report ---
FINAL REPORT EXAM: XR ABDOMEN 1V AP HISTORY: feeding tube placement TECHNIQUE: Frontal view of the abdomen Comparison: CT abdomen and pelvis dated November 24, 2017 FINDINGS: A percutaneous pigtail catheter is demonstrated with the tip projected to the right of midline. There appears to be a collection of air in the region of the pigtail catheter tip. Whether not this is intraluminal or extraluminal is unclear. An esophagogastric tube is demonstrated in the left upper quadrant with the tip projected to the left of midline. IMPRESSION: 1. Esophagogastric tube tip projected to the left of midline in the left upper quadrant. 2. Percutaneous pigtail catheter projected to the right of midline in the abdomen with a collection of air in the region of the tip of the pigtail catheter. If further imaging is required, CT may be helpful.
--- NOTE | 2017-11-26 18:22 | Progress Note ---
Assessment and Plan Assessment and plan: Mr. Echavarria is a 67 yo man with a history of hypertension, prior CVA without known deficits, OA and CAD who initially presented to [facility] ED on 10/04/17 with left facial droop, difficult speaking and inability to move left side as well as chest pains. He had a Carotid doppler done that revealed a right ICA 50-79% stenosis. CTA of the neck revealed 80% stenosis of the right ICA with probable 50% stenosis of the origin of the right common carotid artery. His symptoms were thought to be due to the Carotid artery stenosis which was disheartening since he was on Aspirin and plavix. He was scheduled for right CEA but needed Cardiac clearance. He underwent stress test on 10/05/17 and Director Of Premium Seat Sales stated he was stable for non-cardiac history, low to moderate perioperative risk. So, he underwent right carotid enarterectomy on 10/09/17. Following the surgery, he developed recurrent left sided weakness/hemiparesis was taken to OR again on for Open Thrombectomy of Right Internal Carotid Artery and Injection of TPA into the Distal Artery. CT head obtained on 10/12/17 showed massive right cerebral hemisphere acute CVA with midline shift. He was discharged on 11/10/17 to [facility] but returned to ED on 11/12/17 for sob. He was admitted for Aspiration post-obstructive pneumonia with suspected mucus plug and subsequently intubated on admission. ON 11/20/17, patient went for Tracheostomy by Dr. Hughes, ENT. Then on 11/21/17 patient went into shock, most sepsis as WBC went up to 38k; most likely Aspiration pneumonitis, antibiotics restarted. He was on maximum dose of Levophed and Neosynephrine (right femoral line placed 11/21/[address] Celis for vasopressors). Then 11/22/17 (Thursday morning) the Neosynephrine weaned off and Levophed down to 10 mcg, also Dr. Palmer placed a left femoral tunnel cath for Hemodialysis. Today, Levophed has been weaned off. * CTA chest IMPRESSION: There is no thoracic aortic aneurysm or dissection.. There is no pulmonary embolism.. There is complete atelectasis of the left lung causing volume loss and mediastinal shift to the left. This is due to blockage of the left bronchus by the endotracheal tube which is in the right mainstem bronchus. There is no pleural effusion or pneumothorax.. There is pneumoperitoneum and ascites.. Dr. Navarro was notified by telephone at 3:20 a.m. central. * 1v Abd XRAY IMPRESSION: Nasogastric tube ends in the stomach. A PEG tube is identified. Bowel gas pattern is nonobstructive. -Acute on chronic blood loss anemia w/Coffee-ground material from peg tube: GI is following, treat with ppi iv bid, EGD done 11/18/17 showed 8 mm cratered, 10 mm linear ulcer proximal lesser curvature with erythema but no other bleeding stigmata, gastritis and 4-5 cm hiatal hernia 2 UNITS PRBC TRANSFUSED. MONITOR H/H -Concerning for intrabdominal abscess: Vascular consulted for Drain placement, [place] that this is secondary to leaked susbtance from previously placed Tube. Will reconsult ID incase any further treatment required -Acute hypoxic respiratory failure due to Pneumonia on MV>96 hours s/p Tracheostomy 11/20/17: continue MV, daily weaning attempt -Leukocyotosis with Sepsis with transient septic shock, poa: shock resolved, continue abx, ID is following -Aspiration pneumonia, with mucus plugging/post obstructive pna poa: Aircraft Instrument Mechanic is following, following sunction protocols -Acute encephalopathy: treat supportively. -Hypernatremia: treat with free water, monitor bmp closely -Hypokalemia: replace and monitor closely -ARF vasomotor nephropathy, poa: IV fluids, monitor bmp closely -Dysphagia with aspiration: s/p peg tube - No family present at this time. -Advance care planning: full code -Poor progrnosis. Called family to provide updated information Note copied in order to maintain accurate continuation in this complex case. Changes made to indicate current events and management. The high probability of a clinically significant, sudden or life threatening deterioration of the [HEMATOLOGY, PULMONARY] system(s) required my full and direct attention, intervention and personal management. The aggregate critical care time was [45] minutes. This time is in addition to time spent performing reported procedures but includes the following: [X] Data Review and interpretation [X] Patient assessment and monitoring of vital signs [X] Documentation [X] Medication orders and management Hospitalist Physical - Constitutional Vitals: Temp Pulse Resp BP Pulse Ox 97.3 F L 84 17 122/70 100 09/06/18 18:00 11/26/17 17:30 11/26/17 17:30 11/26/17 17:30 11/26/17 17:30 General appearance: Present: no acute distress, well-nourished Results - Labs CBC & Chem 7: 11/25/17 04:19 11/26/17 06:34 Labs: Laboratory Last Values WBC 22.5 K/mm3 (4.5-11.0) H 11/25/17 04:19 RBC 3.48 M/mm3 (3.65-5.03) L 11/25/17 04:19 Hgb 9.1 gm/dl (11.8-15.2) L 11/25/17 04:19 Hct 28.3 % (35.5-45.6) L 11/25/17 04:19 MCV 81 fl (84-94) L 11/25/17 04:19 MCH 26 pg (28-32) L 11/25/17 04:19 MCHC 32 % (32-34) 11/25/17 04:19 RDW 17.4 % (13.2-15.2) H 11/25/17 04:19 Plt Count 309 K/mm3 (140-440) 11/25/17 04:19 Lymph % (Auto) 8.6 % (13.4-35.0) L 11/13/17 04:50 [place] % (Auto) 11.1 % (0.0-7.3) H 11/13/17 04:50 Eos % (Auto) 0.0 % (0.0-4.3) 11/13/17 04:50 Baso % (Auto) 0.2 % (0.0-1.8) 11/13/17 04:50 Lymph # 1.1 K/mm3 (1.2-5.4) L 11/13/17 04:50 [place] # 1.4 K/mm3 (0.0-0.8) H 11/13/17 04:50 Eos # 0.0 K/mm3 (0.0-0.4) 11/13/17 04:50 Baso # 0.0 K/mm3 (0.0-0.1) 11/13/17 04:50 Add Manual Diff Complete 11/24/17 05:42 Total Counted 100 11/24/17 05:42 Seg Neutrophils % Footwear Machinery Instructor 11/24/17 05:42 Seg Neuts % (Manual) 94.0 % (40.0-70.0) H 11/24/17 05:42 Band Neutrophils % 0 % 11/24/17 05:42 Lymphocytes % (Manual) 3.0 % (13.4-35.0) L 11/24/17 05:42 Reactive Lymphs % (Man) 0 % 11/24/17 05:42 Monocytes % (Manual) 3.0 % (0.0-7.3) 11/24/17 05:42 Eosinophils % (Manual) 0 % (0.0-4.3) 11/24/17 05:42 Basophils % (Manual) 0 % (0.0-1.8) 11/24/17 05:42 Metamyelocytes % 0 % 11/24/17 05:42 Myelocytes % 0 % 11/24/17 05:42 Promyelocytes % 0 % 11/24/17 05:42 Blast Cells % 0 % 11/24/17 05:42 Nucleated RBC % Not Reportable 11/24/17 05:42 Seg Neutrophils # 9.8 K/mm3 (1.8-7.7) H 11/13/17 04:50 Seg Neutrophils # Man 20.2 K/mm3 (1.8-7.7) H 11/24/17 05:42 Band Neutrophils # 0.0 K/mm3 11/24/17 05:42 Lymphocytes # (Manual) 0.6 K/mm3 (1.2-5.4) L 11/24/17 05:42 Abs React Lymphs (Man) 0.0 K/mm3 11/24/17 05:42 Monocytes # (Manual) 0.6 K/mm3 (0.0-0.8) 11/24/17 05:42 Eosinophils # (Manual) 0.0 K/mm3 (0.0-0.4) 11/24/17 05:42 Basophils # (Manual) 0.0 K/mm3 (0.0-0.1) 11/24/17 05:42 Metamyelocytes # 0.0 K/mm3 11/24/17 05:42 Myelocytes # 0.0 K/mm3 11/24/17 05:42 Promyelocytes # 0.0 K/mm3 11/24/17 05:42 Blast Cells # 0.0 K/mm3 11/24/17 05:42 WBC Morphology Not Reportable 11/24/17 05:42 Hypersegmented Neuts Not Reportable 11/24/17 05:42 Hyposegmented Neuts Not Reportable 11/24/17 05:42 Hypogranular Neuts Not Reportable 11/24/17 05:42 Smudge Cells Not Reportable 11/24/17 05:42 Toxic Granulation Not Reportable 11/24/17 05:42 Toxic Vacuolation Not Reportable 11/24/17 05:42 Dohle Bodies Not Reportable 11/24/17 05:42 Pelger-Huet Anomaly Not Reportable 11/24/17 05:42 Evangelina Rods Not Reportable 11/24/17 05:42 Platelet Estimate Appears normal 11/24/17 05:42 Clumped Platelets Not Reportable 11/24/17 05:42 Plt Clumps, EDTA Not Reportable 11/24/17 05:42 Large Platelets Not Reportable 11/24/17 05:42 Giant Platelets Not Reportable 11/24/17 05:42 Platelet Satelliting Not Reportable 11/24/17 05:42 Plt Morphology Comment Not Reportable 11/24/17 05:42 RBC Morphology Not Reportable 11/24/17 05:42 Dimorphic RBCs Not Reportable 11/24/17 05:42 Polychromasia Not Reportable 11/24/17 05:42 Hypochromasia Not Reportable 11/24/17 05:42 Poikilocytosis Not Reportable 11/24/17 05:42 Anisocytosis Few 11/24/17 05:42 Microcytosis Not Reportable 11/24/17 05:42 Macrocytosis Not Reportable 11/24/17 05:42 Spherocytes Not Reportable 11/24/17 05:42 Pappenheimer Bodies Not Reportable 11/24/17 05:42 Sickle Cells Not Reportable 11/24/17 05:42 Target Cells Few 11/24/17 05:42 Tear Drop Cells Not Reportable 11/24/17 05:42 Ovalocytes Not Reportable 11/24/17 05:42 Stomatocytes Few 11/18/17 04:34 Helmet Cells Not Reportable 11/24/17 05:42 [place] Bodies Not Reportable 11/24/17 05:42 [place] Rings Not Reportable 11/24/17 05:42 [place] Cells Not Reportable 11/24/17 05:42 Bite Cells Not Reportable 11/24/17 05:42 Crenated Cell Not Reportable 11/24/17 05:42 Elliptocytes Not Reportable 11/24/17 05:42 Acanthocytes (Spur) Not Reportable 11/24/17 05:42 Rouleaux Not Reportable 11/24/17 05:42 Hemoglobin C Crystals Not Reportable 11/24/17 05:42 Schistocytes Not Reportable 11/24/17 05:42 Malaria parasites Not Reportable 11/24/17 05:42 [place] Bodies Not Reportable 11/24/17 05:42 Hem Pathologist Commnt No 11/24/17 05:42 PT 23.6 Sec. (12.2-14.9) H 11/26/17 06:29 INR 1.96 (0.87-1.13) H 11/26/17 06:29 APTT 33.8 Sec. (24.2-36.6) 11/26/17 06:29 POC ABG pH 7.505 (7.35-7.45) H 11/23/17 04:56 POC ABG pCO2 26.3 (35-45) L 11/23/17 04:56 POC ABG pO2 100 (80-105) 11/23/17 04:56 POC ABG HCO3 20.8 11/23/17 04:56 POC ABG Total CO2 22 11/23/17 04:56 POC ABG O2 Sat 98 11/23/17 04:56 POC ABG Base Excess -2 11/23/17 04:56 FiO2 30 % 11/23/17 04:56 Sodium 141 mmol/L (137-145) 11/26/17 06:34 Potassium 4.3 mmol/L (3.6-5.0) 11/26/17 06:34 Chloride 99.7 mmol/L (98-107) 11/26/17 06:34 Carbon Dioxide 24 mmol/L (22-30) 11/26/17 06:34 Anion Gap 22 mmol/L 11/26/17 06:34 BUN 43 mg/dL (9-20) H 11/26/17 06:34 Creatinine 3.5 mg/dL (0.8-1.5) H 11/26/17 06:34 Estimated GFR 21 ml/min 11/26/17 06:34 BUN/Creatinine Ratio 12 % 11/26/17 06:34 Glucose 93 mg/dL (75-100) 11/26/17 06:34 POC Glucose 97 (70-105) 11/26/17 17:34 Lactic Acid 5.20 mmol/L (0.7-2.0) H* 11/24/17 08:27 Calcium 7.5 mg/dL (8.4-10.2) L 11/26/17 06:34 Magnesium 2.00 mg/dL (1.7-2.3) 11/24/17 21:53 Total Bilirubin 0.90 mg/dL (0.1-1.2) 11/24/17 21:53 AST 170 units/L (5-40) H 11/24/17 21:53 ALT 179 units/L (7-56) H 11/24/17 21:53 Alkaline Phosphatase 175 units/L (35-129) H 11/24/17 21:53 Total Creatine Kinase 84 units/L (55-170) 11/12/17 20:03 CK-MB (CK-2) < 1.0 ng/mL (0.0-4.0) 11/12/17 20:03 CK-MB (CK-2) Rel Index 1.1 (0-4) 11/12/17 20:03 Troponin T 0.098 ng/mL (0.00-0.029) H 11/12/17 Unknown C-Reactive Protein 25.70 mg/dL (0.00-1.30) H 11/11/17 23:20 NT-Pro-B Natriuret Pep 792.4 pg/mL (0-900) 11/11/17 23:20 Total Protein 5.5 g/dL (6.3-8.2) L 11/24/17 21:53 Albumin 1.8 g/dL (3.9-5) L 11/24/17 21:53 Albumin/Globulin Ratio 0.5 % 11/24/17 21:53 Triglycerides 86 mg/dL (2-149) 11/11/17 23:20 Cholesterol 82 mg/dL (50-199) 11/11/17 23:20 LDL Cholesterol Direct 42 mg/dL (50-130) L 11/11/17 23:20 HDL Cholesterol 24 mg/dL (40-59) L 11/11/17 23:20 Cholesterol/HDL Ratio 3.41 % 11/11/17 23:20 Lipase 30 units/L (13-60) 11/11/17 23:20 Urine Color Nicole (Yellow) 11/11/17 23:09 Urine Turbidity Cloudy (Clear) 11/11/17 23:09 Urine pH 5.0 (5.0-7.0) 11/11/17 23:09 Ur Specific [place] 1.025 (1.003-1.030) 11/11/17 23:09 Urine Protein 100 mg/dl mg/dL (Negative) 11/11/17 23:09 Urine Glucose (UA) 50 mg/dL (Negative) 11/11/17 23:09 Urine Ketones Neg mg/dL (Negative) 11/11/17 23:09 Urine Blood Neg (Negative) 11/11/17 23:09 Urine Nitrite Neg (Negative) 11/11/17 23:09 Urine Bilirubin Neg (Negative) 11/11/17 23:09 Urine Urobilinogen 4.0 mg/dL (<2.0) 11/11/17 23:09 Ur Leukocyte Esterase Neg (Negative) 11/11/17 23:09 Urine WBC (Auto) 5.0 /HPF (0.0-6.0) 11/11/17 23:09 Urine RBC (Auto) 4.0 /HPF (0.0-6.0) 11/11/17 23:09 Urine Bacteria (Auto) 3+ /HPF (Negative) 11/11/17 23:09 Amorphous Crystals 3+ 11/11/17 23:09 Hyaline Casts 76 /LPF 11/11/17 23:09 Urine Mucus 2+ /HPF 11/11/17 23:09 Hepatitis A IgM Ab Non-reactive (NonReactive) 11/22/17 19:45 Hep Bs Antigen Non-reactive (Negative) 11/22/17 19:45 Hep B Core IgM Ab Non-reactive (NonReactive) 11/22/17 19:45 Hepatitis C Antibody Reactive (NonReactive) A 11/22/17 19:45 Blood Type A POSITIVE 11/24/17 08: Antibody Screen Negative 11/24/17 08:27 Crossmatch See Detail 11/24/17 08:27
--- NOTE | 2017-11-26 18:57 | Progress Note ---
Assessment and Plan - Patient Problems (1) Ventilator dependence Current Visit: Yes Status: Acute Plan to address problem: ween as tolerated (2) Acute respiratory failure with hypoxemia Current Visit: Yes Status: Acute Plan to address problem: Titrate O2 to keep sat.+92% (3) Respiratory failure Current Visit: No Status: Acute Plan to address problem: ween as tolerated (4) Tracheostomy status Current Visit: Yes Status: Acute Plan to address problem: local trache care trache change in am will replace with an cuffed current trache balloon has a slow leak (5) Bronchorrhea Current Visit: Yes Status: Acute Plan to address problem: will add robinul with scopolamine if OK per Subjective Date of service: 11/26/17 Principal diagnosis: GI bleed Interval history: POD #6 Pt. resting comfortably, s/p abdominal drains placement. Responds to tactile stim Objective - Constitutional Vitals: Vital Signs - 12hr 11/26/17 11/26/17 11/26/17 07:00 07:30 08:00 Temperature 98.3 F Pulse Rate 72 77 80 Pulse Rate [ Intra-Procedure ] Pulse Rate [ 80 Left Dorsalis Pedis] Pulse Rate [ Post-Procedure] Pulse Rate [Pre -Procedure] Pulse Rate [ 85 Right From Monitor] Respiratory 14 14 20 Rate Respiratory Rate [Intra- Procedure] Respiratory Rate [Post- Procedure] Respiratory Rate [Pre- Procedure] Respiratory Rate [Upper Back] Blood Pressure 112/53 118/55 106/57 Blood Pressure [Intra- Procedure] Blood Pressure [Post-Procedure ] Blood Pressure [Pre-Procedure] O2 Sat by Pulse 100 99 100 Oximetry O2 Sat by Pulse Oximetry [ Assessment] O2 Sat by Pulse Oximetry [ Bilateral Throughout] O2 Sat by Pulse Oximetry [ Intra-Procedure ] O2 Sat by Pulse Oximetry [Post -Procedure] O2 Sat by Pulse Oximetry [Pre- Procedure] 11/26/17 11/26/17 11/26/17 08:30 08:47 09:00 Temperature Pulse Rate 75 86 84 Pulse Rate [ Intra-Procedure ] Pulse Rate [ Left Dorsalis Pedis] Pulse Rate [ Post-Procedure] Pulse Rate [Pre -Procedure] Pulse Rate [ Right From Monitor] Respiratory 13 19 Rate Respiratory Rate [Intra- Procedure] Respiratory Rate [Post- Procedure] Respiratory Rate [Pre- Procedure] Respiratory Rate [Upper Back] Blood Pressure 114/60 122/65 122/65 Blood Pressure [Intra- Procedure] Blood Pressure [Post-Procedure ] Blood Pressure [Pre-Procedure] O2 Sat by Pulse 98 98 98 Oximetry O2 Sat by Pulse 100 Oximetry [ Assessment] O2 Sat by Pulse Oximetry [ Bilateral Throughout] O2 Sat by Pulse Oximetry [ Intra-Procedure ] O2 Sat by Pulse Oximetry [Post -Procedure] O2 Sat by Pulse Oximetry [Pre- Procedure] 11/26/17 11/26/17 11/26/17 09:15 09:30 09:45 Temperature 98.3 F Pulse Rate 80 77 79 Pulse Rate [ Intra-Procedure ] Pulse Rate [ Left Dorsalis Pedis] Pulse Rate [ Post-Procedure] Pulse Rate [Pre -Procedure] Pulse Rate [ Right From Monitor] Respiratory 18 22 Rate Respiratory Rate [Intra- Procedure] Respiratory Rate [Post- Procedure] Respiratory Rate [Pre- Procedure] Respiratory Rate [Upper Back] Blood Pressure 122/81 120/63 122/81 Blood Pressure [Intra- Procedure] Blood Pressure [Post-Procedure ] Blood Pressure [Pre-Procedure] O2 Sat by Pulse 97 Oximetry O2 Sat by Pulse Oximetry [ Assessment] O2 Sat by Pulse 100 Oximetry [ Bilateral Throughout] O2 Sat by Pulse Oximetry [ Intra-Procedure ] O2 Sat by Pulse Oximetry [Post -Procedure] O2 Sat by Pulse Oximetry [Pre- Procedure] 11/26/17 11/26/17 11/26/17 10:00 10:15 10:30 Temperature Pulse Rate 90 81 78 Pulse Rate [ Intra-Procedure ] Pulse Rate [ Left Dorsalis Pedis] Pulse Rate [ Post-Procedure] Pulse Rate [Pre -Procedure] Pulse Rate [ Right From Monitor] Respiratory 16 20 Rate Respiratory Rate [Intra- Procedure] Respiratory Rate [Post- Procedure] Respiratory Rate [Pre- Procedure] Respiratory 20 Rate [Upper Back] Blood Pressure 136/85 118/80 117/78 Blood Pressure [Intra- Procedure] Blood Pressure [Post-Procedure ] Blood Pressure [Pre-Procedure] O2 Sat by Pulse 98 100 Oximetry O2 Sat by Pulse Oximetry [ Assessment] O2 Sat by Pulse Oximetry [ Bilateral Throughout] O2 Sat by Pulse Oximetry [ Intra-Procedure ] O2 Sat by Pulse Oximetry [Post -Procedure] O2 Sat by Pulse Oximetry [Pre- Procedure] 11/26/17 11/26/17 11/26/17 10:45 11:00 11:05 Temperature Pulse Rate 74 100 H 92 H Pulse Rate [ Intra-Procedure ] Pulse Rate [ Left Dorsalis Pedis] Pulse Rate [ Post-Procedure] Pulse Rate [Pre -Procedure] Pulse Rate [ Right From Monitor] Respiratory 16 Rate Respiratory Rate [Intra- Procedure] Respiratory Rate [Post- Procedure] Respiratory Rate [Pre- Procedure] Respiratory Rate [Upper Back] Blood Pressure 122/80 132/90 132/90 Blood Pressure [Intra- Procedure] Blood Pressure [Post-Procedure ] Blood Pressure [Pre-Procedure] O2 Sat by Pulse 100 Oximetry O2 Sat by Pulse Oximetry [ Assessment] O2 Sat by Pulse Oximetry [ Bilateral Throughout] O2 Sat by Pulse Oximetry [ Intra-Procedure ] O2 Sat by Pulse Oximetry [Post -Procedure] O2 Sat by Pulse Oximetry [Pre- Procedure] 11/26/17 11/26/17 11/26/17 11:15 11:30 11:45 Temperature Pulse Rate 77 79 95 H Pulse Rate [ Intra-Procedure ] Pulse Rate [ Left Dorsalis Pedis] Pulse Rate [ Post-Procedure] Pulse Rate [Pre -Procedure] Pulse Rate [ Right From Monitor] Respiratory 24 Rate Respiratory Rate [Intra- Procedure] Respiratory Rate [Post- Procedure] Respiratory Rate [Pre- Procedure] Respiratory Rate [Upper Back] Blood Pressure 128/79 126/81 135/97 Blood Pressure [Intra- Procedure] Blood Pressure [Post-Procedure ] Blood Pressure [Pre-Procedure] O2 Sat by Pulse 100 Oximetry O2 Sat by Pulse Oximetry [ Assessment] O2 Sat by Pulse Oximetry [ Bilateral Throughout] O2 Sat by Pulse Oximetry [ Intra-Procedure ] O2 Sat by Pulse Oximetry [Post -Procedure] O2 Sat by Pulse Oximetry [Pre- Procedure] 11/26/17 11/26/17 11/26/17 12:00 12:15 12:30 Temperature 98.1 F Pulse Rate 117 H 79 116 H Pulse Rate [ Intra-Procedure ] Pulse Rate [ 80 Left Dorsalis Pedis] Pulse Rate [ Post-Procedure] Pulse Rate [Pre -Procedure] Pulse Rate [ 85 Right From Monitor] Respiratory 21 21 Rate Respiratory Rate [Intra- Procedure] Respiratory Rate [Post- Procedure] Respiratory Rate [Pre- Procedure] Respiratory Rate [Upper Back] Blood Pressure 146/96 119/77 133/85 Blood Pressure [Intra- Procedure] Blood Pressure [Post-Procedure ] Blood Pressure [Pre-Procedure] O2 Sat by Pulse 100 100 Oximetry O2 Sat by Pulse Oximetry [ Assessment] O2 Sat by Pulse Oximetry [ Bilateral Throughout] O2 Sat by Pulse Oximetry [ Intra-Procedure ] O2 Sat by Pulse Oximetry [Post -Procedure] O2 Sat by Pulse Oximetry [Pre- Procedure] 11/26/17 11/26/17 11/26/17 12:44 13:26 13:40 Temperature 98.3 F Pulse Rate 103 H Pulse Rate [ Intra-Procedure ] Pulse Rate [ Left Dorsalis Pedis] Pulse Rate [ Post-Procedure] Pulse Rate [Pre 105 H 121 H -Procedure] Pulse Rate [ Right From Monitor] Respiratory 22 Rate Respiratory Rate [Intra- Procedure] Respiratory Rate [Post- Procedure] Respiratory 21 24 Rate [Pre- Procedure] Respiratory Rate [Upper Back] Blood Pressure 133/85 Blood Pressure [Intra- Procedure] Blood Pressure [Post-Procedure ] Blood Pressure 164/98 153/92 [Pre-Procedure] O2 Sat by Pulse Oximetry O2 Sat by Pulse Oximetry [ Assessment] O2 Sat by Pulse 100 Oximetry [ Bilateral Throughout] O2 Sat by Pulse Oximetry [ Intra-Procedure ] O2 Sat by Pulse Oximetry [Post -Procedure] O2 Sat by Pulse 100 100 Oximetry [Pre- Procedure] 11/26/17 11/26/17 11/26/17 13:41 13:45 13:50 Temperature Pulse Rate Pulse Rate [ 97 H 92 H Intra-Procedure ] Pulse Rate [ Left Dorsalis Pedis] Pulse Rate [ Post-Procedure] Pulse Rate [Pre -Procedure] Pulse Rate [ Right From Monitor] Respiratory 24 Rate Respiratory 25 H 25 H Rate [Intra- Procedure] Respiratory Rate [Post- Procedure] Respiratory Rate [Pre- Procedure] Respiratory Rate [Upper Back] Blood Pressure Blood Pressure 126/81 144/91 [Intra- Procedure] Blood Pressure [Post-Procedure ] Blood Pressure [Pre-Procedure] O2 Sat by Pulse Oximetry O2 Sat by Pulse Oximetry [ Assessment] O2 Sat by Pulse Oximetry [ Bilateral Throughout] O2 Sat by Pulse 100 100 Oximetry [ Intra-Procedure ] O2 Sat by Pulse Oximetry [Post -Procedure] O2 Sat by Pulse Oximetry [Pre- Procedure] 11/26/17 11/26/17 11/26/17 13:55 14:00 14:04 Temperature Pulse Rate Pulse Rate [ 97 H 119 H 95 H Intra-Procedure ] Pulse Rate [ Left Dorsalis Pedis] Pulse Rate [ Post-Procedure] Pulse Rate [Pre -Procedure] Pulse Rate [ Right From Monitor] Respiratory Rate Respiratory 25 H 25 H 22 Rate [Intra- Procedure] Respiratory Rate [Post- Procedure] Respiratory Rate [Pre- Procedure] Respiratory Rate [Upper Back] Blood Pressure Blood Pressure 146/82 147/91 162/85 [Intra- Procedure] Blood Pressure [Post-Procedure ] Blood Pressure [Pre-Procedure] O2 Sat by Pulse Oximetry O2 Sat by Pulse Oximetry [ Assessment] O2 Sat by Pulse Oximetry [ Bilateral Throughout] O2 Sat by Pulse 100 100 100 Oximetry [ Intra-Procedure ] O2 Sat by Pulse Oximetry [Post -Procedure] O2 Sat by Pulse Oximetry [Pre- Procedure] 11/26/17 11/26/17 11/26/17 14:09 14:11 14:14 Temperature Pulse Rate Pulse Rate [ 80 101 H Intra-Procedure ] Pulse Rate [ Left Dorsalis Pedis] Pulse Rate [ Post-Procedure] Pulse Rate [Pre -Procedure] Pulse Rate [ Right From Monitor] Respiratory 24 Rate Respiratory 25 H 28 H Rate [Intra- Procedure] Respiratory Rate [Post- Procedure] Respiratory Rate [Pre- Procedure] Respiratory Rate [Upper Back] Blood Pressure Blood Pressure 137/88 149/87 [Intra- Procedure] Blood Pressure [Post-Procedure ] Blood Pressure [Pre-Procedure] O2 Sat by Pulse Oximetry O2 Sat by Pulse Oximetry [ Assessment] O2 Sat by Pulse Oximetry [ Bilateral Throughout] O2 Sat by Pulse 100 100 Oximetry [ Intra-Procedure ] O2 Sat by Pulse Oximetry [Post -Procedure] O2 Sat by Pulse Oximetry [Pre- Procedure] 11/26/17 11/26/17 11/26/17 14:19 14:24 14:29 Temperature Pulse Rate Pulse Rate [ 103 H 103 H 107 H Intra-Procedure ] Pulse Rate [ Left Dorsalis Pedis] Pulse Rate [ Post-Procedure] Pulse Rate [Pre -Procedure] Pulse Rate [ Right From Monitor] Respiratory Rate Respiratory 29 H 28 H 31 H Rate [Intra- Procedure] Respiratory Rate [Post- Procedure] Respiratory Rate [Pre- Procedure] Respiratory Rate [Upper Back] Blood Pressure Blood Pressure 152/94 164/95 153/91 [Intra- Procedure] Blood Pressure [Post-Procedure ] Blood Pressure [Pre-Procedure] O2 Sat by Pulse Oximetry O2 Sat by Pulse Oximetry [ Assessment] O2 Sat by Pulse Oximetry [ Bilateral Throughout] O2 Sat by Pulse 100 100 100 Oximetry [ Intra-Procedure ] O2 Sat by Pulse Oximetry [Post -Procedure] O2 Sat by Pulse Oximetry [Pre- Procedure] 11/26/17 11/26/17 11/26/17 14:34 14:39 14:44 Temperature Pulse Rate Pulse Rate [ 108 H 98 H 105 H Intra-Procedure ] Pulse Rate [ Left Dorsalis Pedis] Pulse Rate [ Post-Procedure] Pulse Rate [Pre -Procedure] Pulse Rate [ Right From Monitor] Respiratory Rate Respiratory 26 H 27 H 28 H Rate [Intra- Procedure] Respiratory Rate [Post- Procedure] Respiratory Rate [Pre- Procedure] Respiratory Rate [Upper Back] Blood Pressure Blood Pressure 159/98 160/85 157/95 [Intra- Procedure] Blood Pressure [Post-Procedure ] Blood Pressure [Pre-Procedure] O2 Sat by Pulse Oximetry O2 Sat by Pulse Oximetry [ Assessment] O2 Sat by Pulse Oximetry [ Bilateral Throughout] O2 Sat by Pulse 98 98 100 Oximetry [ Intra-Procedure ] O2 Sat by Pulse Oximetry [Post -Procedure] O2 Sat by Pulse Oximetry [Pre- Procedure] 11/26/17 11/26/17 11/26/17 14:49 14:54 14:59 Temperature Pulse Rate Pulse Rate [ 100 H 127 H Intra-Procedure ] Pulse Rate [ Left Dorsalis Pedis] Pulse Rate [ 106 H Post-Procedure] Pulse Rate [Pre -Procedure] Pulse Rate [ Right From Monitor] Respiratory Rate Respiratory 29 H 29 H Rate [Intra- Procedure] Respiratory 27 H Rate [Post- Procedure] Respiratory Rate [Pre- Procedure] Respiratory Rate [Upper Back] Blood Pressure Blood Pressure 182/98 157/92 [Intra- Procedure] Blood Pressure 158/98 [Post-Procedure ] Blood Pressure [Pre-Procedure] O2 Sat by Pulse Oximetry O2 Sat by Pulse Oximetry [ Assessment] O2 Sat by Pulse Oximetry [ Bilateral Throughout] O2 Sat by Pulse 100 100 Oximetry [ Intra-Procedure ] O2 Sat by Pulse 98 Oximetry [Post -Procedure] O2 Sat by Pulse Oximetry [Pre- Procedure] 11/26/17 11/26/17 11/26/17 15:04 15:20 15:35 Temperature Pulse Rate Pulse Rate [ Intra-Procedure ] Pulse Rate [ Left Dorsalis Pedis] Pulse Rate [ 104 H 103 H 101 H Post-Procedure] Pulse Rate [Pre -Procedure] Pulse Rate [ Right From Monitor] Respiratory Rate Respiratory Rate [Intra- Procedure] Respiratory 27 H 26 H 26 H Rate [Post- Procedure] Respiratory Rate [Pre- Procedure] Respiratory Rate [Upper Back] Blood Pressure Blood Pressure [Intra- Procedure] Blood Pressure 164/95 171/97 168/96 [Post-Procedure ] Blood Pressure [Pre-Procedure] O2 Sat by Pulse Oximetry O2 Sat by Pulse Oximetry [ Assessment] O2 Sat by Pulse Oximetry [ Bilateral Throughout] O2 Sat by Pulse Oximetry [ Intra-Procedure ] O2 Sat by Pulse 100 100 100 Oximetry [Post -Procedure] O2 Sat by Pulse Oximetry [Pre- Procedure] 11/26/17 11/26/17 11/26/17 15:43 16:01 16:30 Temperature Pulse Rate 95 H 103 H Pulse Rate [ Intra-Procedure ] Pulse Rate [ Left Dorsalis Pedis] Pulse Rate [ Post-Procedure] Pulse Rate [Pre -Procedure] Pulse Rate [ Right From Monitor] Respiratory 20 18 Rate Respiratory Rate [Intra- Procedure] Respiratory Rate [Post- Procedure] Respiratory Rate [Pre- Procedure] Respiratory Rate [Upper Back] Blood Pressure 130/73 142/76 137/90 Blood Pressure [Intra- Procedure] Blood Pressure [Post-Procedure ] Blood Pressure [Pre-Procedure] O2 Sat by Pulse 100 100 Oximetry O2 Sat by Pulse Oximetry [ Assessment] O2 Sat by Pulse Oximetry [ Bilateral Throughout] O2 Sat by Pulse Oximetry [ Intra-Procedure ] O2 Sat by Pulse Oximetry [Post -Procedure] O2 Sat by Pulse Oximetry [Pre- Procedure] 11/26/17 11/26/17 11/26/17 17:00 17:01 17:30 Temperature Pulse Rate 82 86 84 Pulse Rate [ Intra-Procedure ] Pulse Rate [ Left Dorsalis Pedis] Pulse Rate [ Post-Procedure] Pulse Rate [Pre -Procedure] Pulse Rate [ Right From Monitor] Respiratory 19 17 Rate Respiratory Rate [Intra- Procedure] Respiratory Rate [Post- Procedure] Respiratory Rate [Pre- Procedure] Respiratory Rate [Upper Back] Blood Pressure 136/71 136/71 122/70 Blood Pressure [Intra- Procedure] Blood Pressure [Post-Procedure ] Blood Pressure [Pre-Procedure] O2 Sat by Pulse 100 100 100 Oximetry O2 Sat by Pulse Oximetry [ Assessment] O2 Sat by Pulse Oximetry [ Bilateral Throughout] O2 Sat by Pulse Oximetry [ Intra-Procedure ] O2 Sat by Pulse Oximetry [Post -Procedure] O2 Sat by Pulse Oximetry [Pre- Procedure] 11/26/17 11/26/17 18:00 18:15 Temperature 97.3 F L Pulse Rate Pulse Rate [ Intra-Procedure ] Pulse Rate [ Left Dorsalis Pedis] Pulse Rate [ Post-Procedure] Pulse Rate [Pre -Procedure] Pulse Rate [ Right From Monitor] Respiratory Rate Respiratory Rate [Intra- Procedure] Respiratory Rate [Post- Procedure] Respiratory Rate [Pre- Procedure] Respiratory Rate [Upper Back] Blood Pressure Blood Pressure [Intra- Procedure] Blood Pressure [Post-Procedure ] Blood Pressure [Pre-Procedure] O2 Sat by Pulse Oximetry O2 Sat by Pulse 100 Oximetry [ Assessment] O2 Sat by Pulse Oximetry [ Bilateral Throughout] O2 Sat by Pulse Oximetry [ Intra-Procedure ] O2 Sat by Pulse Oximetry [Post -Procedure] O2 Sat by Pulse Oximetry [Pre- Procedure] General appearance: Present: no acute distress, obese - EENT Eyes: PERRL, EOM intact ENT: hearing intact, clear oral mucosa, poor dentition Ears: bilateral: other (with out breakdown) - Neck Neck: supple, other (trache midline, copius secretion dispite having a scopolamine patch) - Respiratory Respiratory effort: normal, other (on vent) - Breasts Breasts: deferred - Cardiovascular Rhythm: regular Heart Sounds: Present: S1 & S2 Extremities: no ischemia, normal color - Gastrointestinal General gastrointestinal: Present: distended (drains in place), other (drains in place) Rectal Exam: deferred - Genitourinary Male genitourinary: deferred - Integumentary Integumentary: clear, warm, dry - Musculoskeletal Musculoskeletal: other (sedated) - Neurologic Neurologic: other (sedated) - Psychiatric Psychiatric: other (sedated) - Labs CBC & Chem 7: 11/25/17 04:19 11/26/17 06:34 Labs: Abnormal lab results 11/26/17 11/26/17 Range/Units 06:29 06:34 PT 23.6 H (12.2-14.9) Sec. INR 1.96 H (0.87-1.13) BUN 43 H (9-20) mg/dL Creatinine 3.5 H (0.8-1.5) mg/dL Calcium 7.5 L (8.4-10.2) mg/dL
[2017-11-27] MEDS: PROTONIX IV SCH ×3 (02:25→22:44)
[2017-11-27] MEDS: ROBINUL PO SCH ×3 (02:25→22:44)
[2017-11-27 04:35] LABS: Basophils % (Auto) 0.2 % (0.0-1.8); Eosinophils # (Auto) 0.2 K/mm3 (0.0-0.4); Eosinophils % (Auto) 1.8 % (0.0-4.3); Hematocrit 25.8 % (35.5-45.6); Hemoglobin 8.4 gm/dl (11.8-15.2); Lymphocytes # (Auto) 0.8 K/mm3 (1.2-5.4); Lymphocytes % (Auto) 7.4 % (13.4-35.0); Mean Corpuscular HGB Conc 33 % (32-34); Mean Corpuscular Hemoglobin 27 pg (28-32); Mean Corpuscular Volume 82 fl (84-94); Monocytes # (Auto) 0.8 K/mm3 (0.0-0.8); Monocytes % (Auto) 6.9 % (0.0-7.3); Platelet Count 184 K/mm3 (140-440); Red Blood Count 3.13 M/mm3 (3.65-5.03); Red Cell Distribution Width 17.7 % (13.2-15.2)
[2017-11-27 04:47] LABS: Calcium 8.1 mg/dL (8.4-10.2)
[2017-11-27] MEDS: ZOSYN/NS 2.25 GM/50ML 2.25 GM/50 ML BAG IV SCH ×3 (06:42→22:45)
--- NOTE | 2017-11-27 10:44 | Gastroenterology Progress Note ---
Assessment and Plan 1.GI bleed 2.melena 3.acute respiratory failure (s/p trach) 3.septic shock 4.pneumonia 5.recent CVA (s/p CEA) -H/H-stable -continue to monitor H/H and transfuse as needed -no active signs of bleeding -EGD/PEG 11/06 -EGD 11/18 that revealed a 4-5cm HH, gastritis, and 10mm linear ulcer in proximal lesser curvature with erythema but no bleeding stigmata -no plans for repeat EGD at this time, unless overt bleeding develops -continue PPI -repeat CT showed ascites and G-tube not within the stomach with contrast accumulating in the greater omentum and the left pericolic gutter -s/p abdominal drains placed x 3 yesterday by IR -continue TFs via dobhoff and supportive care -will defer further management to IR/surgery -will sign off, please call if needed Subjective Date of service: 11/27/17 Principal diagnosis: GI bleed Interval history: Intubated on vent. No acute distress. No active signs of bleeding per nursing. Objective - Constitutional Vitals: Temp Pulse Resp BP Pulse Ox 97.2 F L 76 20 135/72 100 11/27/17 09:00 11/27/17 10:00 11/27/17 10:00 11/27/17 10:00 11/27/17 10:00 General appearance: no acute distress, other (intubated on vent) - Respiratory Respiratory: bilateral: other (coarse) - Cardiovascular Rhythm: regular Heart Sounds: Present: S1 & S2 - Gastrointestinal General gastrointestinal: Present: soft, distended (slightly ), hypoactive bowel sounds - Labs CBC & Chem 7: 11/27/17 04:06 11/27/17 04:06 Labs: Laboratory Results - last 24 hr 11/26/17 11/27/17 11/27/17 17:34 04:06 04:06 WBC 11.3 H RBC 3.13 L Hgb 8.4 L Hct 25.8 L MCV 82 L MCH 27 L MCHC 33 RDW 17.7 H Plt Count 184 Lymph % (Auto) 7.4 L Arthur % (Auto) 6.9 Eos % (Auto) 1.8 Baso % (Auto) 0.2 Lymph # 0.8 L Arthur # 0.8 Eos # 0.2 Baso # 0.0 Seg Neutrophils % 83.7 H Seg Neutrophils # 9.5 H Sodium 139 Potassium 4.1 Chloride 97.9 L Carbon Dioxide 27 Anion Gap 18 BUN 29 H Creatinine 2.9 H Estimated GFR 26 BUN/Creatinine Ratio 10 Glucose 100 POC Glucose 97 Lactic Acid Calcium 8.1 L 11/27/17 04:06 WBC RBC Hgb Hct MCV MCH MCHC RDW Plt Count Lymph % (Auto) Arthur % (Auto) Eos % (Auto) Baso % (Auto) Lymph # Arthur # Eos # Baso # Seg Neutrophils % Seg Neutrophils # Sodium Potassium Chloride Carbon Dioxide Anion Gap BUN Creatinine Estimated GFR BUN/Creatinine Ratio Glucose POC Glucose Lactic Acid 1.80 Calcium
[2017-11-27] MEDS ORDERED: NACL 0.9% 100 ML IV PRN (11:05)
--- NOTE | 2017-11-27 11:05 | Progress Note ---
Assessment and Plan Assessment : * Acute kidney injury. Most likely ATN . patient has been initiated on renal replacement therapy on 11/23/17 * Respiratory failure * Metabolic acidosis * Hypokalemia * Severe anemia * Carotid artery disease . s/p carotid endarterectomy * Hypocalcemia Recommendations * No evidence of renal recovery . Schedule patient for hemodialysis again tomorrow * Hypokalemia and hypocalcemia much improved * Acidosis has been corrected . Off bicarbonate * easley catheter has been removed . Check bladder scan * Prognosis remains very poor * Assess need for dialysis on daily basis . Subjective Date of service: 11/27/17 Principal diagnosis: GI bleed Interval history: patient remains on the ventilator via trache . On 30% FiO2 . Unresponsive . Remains off pressors Objective - Vital Signs Vital signs: Vital Signs - 12hr 11/26/17 11/27/17 11/27/17 23:30 00:00 00:05 Temperature 98.4 F Pulse Rate 82 79 79 Pulse Rate [ Left Dorsalis Pedis] Pulse Rate [ Right From Monitor] Respiratory 13 13 Rate Blood Pressure 105/58 114/62 114/63 O2 Sat by Pulse 100 100 100 Oximetry O2 Sat by Pulse Oximetry [ Assessment] 11/27/17 11/27/17 11/27/17 00:30 00:47 01:00 Temperature Pulse Rate 100 H 87 Pulse Rate [ Left Dorsalis Pedis] Pulse Rate [ Right From Monitor] Respiratory 13 16 Rate Blood Pressure 142/78 129/73 O2 Sat by Pulse 98 98 Oximetry O2 Sat by Pulse 100 Oximetry [ Assessment] 11/27/17 11/27/17 11/27/17 01:30 02:00 02:30 Temperature Pulse Rate 99 H 80 83 Pulse Rate [ 87 Left Dorsalis Pedis] Pulse Rate [ 87 Right From Monitor] Respiratory 13 16 13 Rate Blood Pressure 141/86 121/69 132/73 O2 Sat by Pulse 100 99 99 Oximetry O2 Sat by Pulse Oximetry [ Assessment] 11/27/17 11/27/17 11/27/17 03:00 03:30 04:00 Temperature 98.5 F Pulse Rate 97 H 89 88 Pulse Rate [ Left Dorsalis Pedis] Pulse Rate [ Right From Monitor] Respiratory 17 14 13 Rate Blood Pressure 155/88 114/66 118/71 O2 Sat by Pulse 100 98 98 Oximetry O2 Sat by Pulse Oximetry [ Assessment] 11/27/17 11/27/17 11/27/17 04:25 04:30 05:00 Temperature Pulse Rate 81 85 95 H Pulse Rate [ Left Dorsalis Pedis] Pulse Rate [ Right From Monitor] Respiratory 14 14 Rate Blood Pressure 116/67 116/67 144/81 O2 Sat by Pulse 99 98 99 Oximetry O2 Sat by Pulse Oximetry [ Assessment] 11/27/17 11/27/17 11/27/17 05:30 06:00 06:30 Temperature Pulse Rate 97 H 85 87 Pulse Rate [ 87 Left Dorsalis Pedis] Pulse Rate [ 80 Right From Monitor] Respiratory 16 13 17 Rate Blood Pressure 144/83 124/75 135/76 O2 Sat by Pulse 100 100 100 Oximetry O2 Sat by Pulse Oximetry [ Assessment] 11/27/17 11/27/17 11/27/17 07:00 07:30 08:00 Temperature Pulse Rate 94 H 75 72 Pulse Rate [ Left Dorsalis Pedis] Pulse Rate [ 94 H Right From Monitor] Respiratory 16 13 13 Rate Blood Pressure 154/91 125/72 164/78 O2 Sat by Pulse 100 100 100 Oximetry O2 Sat by Pulse Oximetry [ Assessment] 11/27/17 11/27/17 11/27/17 08:30 09:00 09:30 Temperature 97.2 F L Pulse Rate 75 93 H 78 Pulse Rate [ Left Dorsalis Pedis] Pulse Rate [ Right From Monitor] Respiratory 14 13 13 Rate Blood Pressure 130/69 154/86 133/70 O2 Sat by Pulse 100 100 100 Oximetry O2 Sat by Pulse 100 Oximetry [ Assessment] 11/27/17 10:00 Temperature Pulse Rate 76 Pulse Rate [ Left Dorsalis Pedis] Pulse Rate [ Right From Monitor] Respiratory 20 Rate Blood Pressure 135/72 O2 Sat by Pulse 100 Oximetry O2 Sat by Pulse Oximetry [ Assessment] - General Appearance General appearance: well-developed, appears stated age, intubated EENT: PERRL, mucous membranes moist Neck: no JVD, no thyromegaly Respiratory: Present: Ronchi Cardiology: regular, normal heart rate Gastrointestinal: normoactive bowel sounds, other (G tube and drain in place ) Integumentary: other (1+ edema . left femoral vascath ) - Lab 11/27/17 04:06 11/27/17 04:06 Most recent lab results Calcium 8.1 mg/dL (8.4-10.2) L 11/27/17 04:06 Magnesium 2.00 mg/dL (1.7-2.3) 11/24/17 21:53
--- NOTE | 2017-11-27 13:38 | Progress Note ---
Assessment and Plan - Patient Problems (1) Ventilator dependence Current Visit: Yes Status: Acute Plan to address problem: ween as tolerated (2) Acute respiratory failure with hypoxemia Current Visit: Yes Status: Acute Plan to address problem: Titrate O2 to keep sat.+92% (3) Respiratory failure Current Visit: No Status: Acute Plan to address problem: ween as tolerated (4) Tracheostomy status Current Visit: Yes Status: Acute Plan to address problem: local trache sutures removed. Pt. weening well. Will hold trache change to give pt a change to ween to t-piece, care discussed with pulmonary & agree. (5) Bronchorrhea Current Visit: Yes Status: Acute Plan to address problem: robinul with scopolamine OK per GI Subjective Date of service: 11/27/17 Principal diagnosis: GI bleed Interval history: POD #7 Pt. resting comfortably, Responds to tactile stim not a vigorous Objective - Constitutional Vitals: Vital Signs - 12hr 11/27/17 11/27/17 11/27/17 02:00 02:30 03:00 Temperature Pulse Rate 80 83 97 H Pulse Rate [ 87 Left Dorsalis Pedis] Pulse Rate [ 87 Right From Monitor] Respiratory 16 13 17 Rate Blood Pressure 121/69 132/73 155/88 O2 Sat by Pulse 99 99 100 Oximetry O2 Sat by Pulse Oximetry [ Assessment] 11/27/17 11/27/17 11/27/17 03:30 04:00 04:25 Temperature 98.5 F Pulse Rate 89 88 81 Pulse Rate [ Left Dorsalis Pedis] Pulse Rate [ Right From Monitor] Respiratory 14 13 Rate Blood Pressure 114/66 118/71 116/67 O2 Sat by Pulse 98 98 99 Oximetry O2 Sat by Pulse Oximetry [ Assessment] 11/27/17 11/27/17 11/27/17 04:30 05:00 05:30 Temperature Pulse Rate 85 95 H 97 H Pulse Rate [ Left Dorsalis Pedis] Pulse Rate [ Right From Monitor] Respiratory 14 14 16 Rate Blood Pressure 116/67 144/81 144/83 O2 Sat by Pulse 98 99 100 Oximetry O2 Sat by Pulse Oximetry [ Assessment] 11/27/17 11/27/17 11/27/17 06:00 06:30 07:00 Temperature Pulse Rate 85 87 94 H Pulse Rate [ 87 Left Dorsalis Pedis] Pulse Rate [ 80 Right From Monitor] Respiratory 13 17 16 Rate Blood Pressure 124/75 135/76 154/91 O2 Sat by Pulse 100 100 100 Oximetry O2 Sat by Pulse Oximetry [ Assessment] 11/27/17 11/27/17 11/27/17 07:30 08:00 08:30 Temperature Pulse Rate 75 72 75 Pulse Rate [ Left Dorsalis Pedis] Pulse Rate [ 94 H Right From Monitor] Respiratory 13 13 14 Rate Blood Pressure 125/72 164/78 130/69 O2 Sat by Pulse 100 100 100 Oximetry O2 Sat by Pulse Oximetry [ Assessment] 11/27/17 11/27/17 11/27/17 09:00 09:30 10:00 Temperature 97.2 F L Pulse Rate 93 H 78 92 H Pulse Rate [ Left Dorsalis Pedis] Pulse Rate [ Right From Monitor] Respiratory 13 13 20 Rate Blood Pressure 154/86 133/70 135/72 O2 Sat by Pulse 100 100 100 Oximetry O2 Sat by Pulse 100 Oximetry [ Assessment] 11/27/17 11/27/17 12:34 13:04 Temperature 97.4 F L Pulse Rate 88 Pulse Rate [ Left Dorsalis Pedis] Pulse Rate [ Right From Monitor] Respiratory Rate Blood Pressure 154/83 O2 Sat by Pulse 99 Oximetry O2 Sat by Pulse Oximetry [ Assessment] General appearance: Present: no acute distress - EENT Eyes: PERRL Ears: bilateral: normal - Neck Neck: supple, other (stoma with copious mucoid secretions with scopolamune & robinul sutures intact) - Respiratory Respiratory effort: normal, other (on vent. holding volume, weening in progress ) - Breasts Breasts: deferred - Cardiovascular Rhythm: regular Heart Sounds: Present: S1 & S2 Extremities: no ischemia Extremity abnormal: edema - Gastrointestinal General gastrointestinal: Present: non-tender, other (drains in place) Rectal Exam: deferred - Genitourinary Male genitourinary: deferred - Integumentary Integumentary: clear, warm, dry - Musculoskeletal Musculoskeletal: left sided weakness - Neurologic Neurologic: other (sedated) - Psychiatric Psychiatric: other (sedated) - Labs CBC & Chem 7: 11/27/17 04:06 11/27/17 04:06 Labs: Abnormal lab results 11/27/17 11/27/17 Range/Units 04:06 04:06 WBC 11.3 H (4.5-11.0) K/mm3 RBC 3.13 L (3.65-5.03) M/mm3 Hgb 8.4 L (11.8-15.2) gm/dl Hct 25.8 L (35.5-45.6) % MCV 82 L (84-94) fl MCH 27 L (28-32) pg RDW 17.7 H (13.2-15.2) % Lymph % (Auto) 7.4 L (13.4-35.0) % Lymph # 0.8 L (1.2-5.4) K/mm3 Seg Neutrophils % 83.7 H (40.0-70.0) % Seg Neutrophils # 9.5 H (1.8-7.7) K/mm3 Chloride 97.9 L (98-107) mmol/L BUN 29 H (9-20) mg/dL Creatinine 2.9 H (0.8-1.5) mg/dL Calcium 8.1 L (8.4-10.2) mg/dL
[2017-11-27] MEDS: SODIUM CHLORIDE FLUSH SYRINGE 10 ML IV SCH ×2 (13:41→22:46)
--- NOTE | 2017-11-27 13:49 | Progress Note ---
Assessment and Plan Imp: 1. CVA 2. Hemiparesis 3. Aspiration pneumonitis related to above 4. Sepsis 2/2 peritonitis/PEG mal-position, better 5. DARYA 6. s/p Trach/PEG Rec: 1. Volume removal with HD 2. Cont. Zosyn given CT a/p results; lactate and WBC are better after abdominal drainage; f/u cultures; ID re-evaluation is pending 3. PEG is out; NGT feeds okay per surgery, can start cautiously at 10mL/hour 4. SCDs; GI PPx 5. PSV trials -> Tpiece; trach will need to be permanent for secretion clearance ; ENT will downsize once off ventilator, see notes 6. Monitor H/H 7. Insurance denies LTAC coverage Long-term prognosis poor; no family present CCt 31 minutes Subjective Date of service: 11/27/17 Principal diagnosis: GI bleed Interval history: Off sedation. Arouses. Moves RUE. Off pressors. HD done yesterday. Pigtail drainage catheters placed x 3 in the abdomen yesterday, with basically return of material that resembles TFs. Active Medications Acetaminophen (Tylenol) 650 mg VT Q4H PRN PRN Reason: Pain MILD(1-3)/Fever >100.5/CABELLO Last Admin: 11/22/17 09:07 Dose: 650 mg Lipase/Protease/Amylase (Pancreaze Dr 10,500 Unit) 1 each FEEDTUBE PRN PRN PRN Reason: For Clogged Feeding Tube Glycopyrrolate (Robinul) 1 mg PO BID [facility] Stop: 11/27/17 22:01 Last Admin: 11/27/17 10:15 Dose: 1 mg Fentanyl Citrate (Fentanyl Drip Premix) 2,000 mcg in 100 mls @ 3.969 mls/hr IV TITR [facility]; Protocol Last Titration: 11/12/17 04:07 Dose: 5 mcg/kg/hr, 19.845 mls/hr Propofol (Diprivan 10 Mg/Ml) 1,000 mg in 100 mls @ 2.381 mls/hr IV TITR [facility]; Protocol Last Titration: 11/17/17 19:32 Dose: 10 mcg/kg/min, 4.763 mls/hr Norepinephrine 8 mg/ Sodium (Chloride) 250 mls @ 3.75 mls/hr IV TITR [facility]; Protocol Last Titration: 11/23/17 04:00 Dose: 0 mcg/min, 0 mls/hr Phenylephrine HCl 100 mg/ (Sodium Chloride) 100 mls @ 3 mls/hr IV TITR [facility]; Protocol Last Titration: 11/22/17 00:10 Dose: 0 mcg/min, 0 mls/hr Piperacillin Sod/Tazobactam Sod (Zosyn/Ns 2.25 Gm/50ml) 2.25 gm in 50 mls @ 100 mls/hr IV Q8HR [facility]; Protocol Stop: 11/28/17 23:59 Last Admin: 11/27/17 13:41 Dose: 100 mls/hr Sodium Chloride (Nacl 0.9%) 100 mls @ 999 mls/hr IV TIM PRN PRN Reason: Hypotension Sodium Chloride (Nacl 0.9%) 100 mls @ 999 mls/hr IV TIM PRN PRN Reason: Hypotension Ondansetron HCl (Zofran) 4 mg IV Q8H PRN PRN Reason: Nausea And Vomiting Pantoprazole Sodium (Protonix) 40 mg IV BID [facility] Last Admin: 11/27/17 10:15 Dose: 40 mg Sodium Chloride (Sodium Chloride Flush Syringe 10 Ml) 10 ml IV BID [facility] Last Admin: 11/27/17 13:41 Dose: 10 ml Sodium Chloride (Sodium Chloride Flush Syringe 10 Ml) 10 ml IV PRN PRN PRN Reason: LINE FLUSH Objective Vital Signs - 12hr 11/27/17 11/27/17 11/27/17 02:00 02:30 03:00 Temperature Pulse Rate 80 83 97 H Pulse Rate [ 87 Left Dorsalis Pedis] Pulse Rate [ 87 Right From Monitor] Respiratory 16 13 17 Rate Blood Pressure 121/69 132/73 155/88 O2 Sat by Pulse 99 99 100 Oximetry O2 Sat by Pulse Oximetry [ Assessment] 11/27/17 11/27/17 11/27/17 03:30 04:00 04:25 Temperature 98.5 F Pulse Rate 89 88 81 Pulse Rate [ Left Dorsalis Pedis] Pulse Rate [ Right From Monitor] Respiratory 14 13 Rate Blood Pressure 114/66 118/71 116/67 O2 Sat by Pulse 98 98 99 Oximetry O2 Sat by Pulse Oximetry [ Assessment] 11/27/17 11/27/17 11/27/17 04:30 05:00 05:30 Temperature Pulse Rate 85 95 H 97 H Pulse Rate [ Left Dorsalis Pedis] Pulse Rate [ Right From Monitor] Respiratory 14 14 16 Rate Blood Pressure 116/67 144/81 144/83 O2 Sat by Pulse 98 99 100 Oximetry O2 Sat by Pulse Oximetry [ Assessment] 11/27/17 11/27/17 11/27/17 06:00 06:30 07:00 Temperature Pulse Rate 85 87 94 H Pulse Rate [ 87 Left Dorsalis Pedis] Pulse Rate [ 80 Right From Monitor] Respiratory 13 17 16 Rate Blood Pressure 124/75 135/76 154/91 O2 Sat by Pulse 100 100 100 Oximetry O2 Sat by Pulse Oximetry [ Assessment] 11/27/17 11/27/17 11/27/17 07:30 08:00 08:30 Temperature Pulse Rate 75 72 75 Pulse Rate [ Left Dorsalis Pedis] Pulse Rate [ 94 H Right From Monitor] Respiratory 13 13 14 Rate Blood Pressure 125/72 164/78 130/69 O2 Sat by Pulse 100 100 100 Oximetry O2 Sat by Pulse Oximetry [ Assessment] 11/27/17 11/27/17 11/27/17 09:00 09:30 10:00 Temperature 97.2 F L Pulse Rate 93 H 78 92 H Pulse Rate [ Left Dorsalis Pedis] Pulse Rate [ Right From Monitor] Respiratory 13 13 20 Rate Blood Pressure 154/86 133/70 135/72 O2 Sat by Pulse 100 100 100 Oximetry O2 Sat by Pulse 100 Oximetry [ Assessment] 11/27/17 11/27/17 12:34 13:04 Temperature 97.4 F L Pulse Rate 88 Pulse Rate [ Left Dorsalis Pedis] Pulse Rate [ Right From Monitor] Respiratory Rate Blood Pressure 154/83 O2 Sat by Pulse 99 Oximetry O2 Sat by Pulse Oximetry [ Assessment] Constitutional: other (s/p trach, critically ill) Eyes: non-icteric ENT: oropharynx moist Neck: supple Effort: normal Ascultation: Bilateral: clear Cardiovascular: regular rate and rhythm (no mrg) Gastrointestinal: normoactive bowel sounds, soft, non-tender, other (distended) Integumentary: normal Extremities: no cyanosis, pink and warm, anasarca Neurologic: other (L hemiparesis) Psychiatric: other (unable to assess) CBC and BMP: 11/27/17 04:06 11/27/17 04:06 ABG, PT/INR, D-dimer: ABG POC ABG pH 7.505 (7.35-7.45) H 11/23/17 04:56 POC ABG pCO2 26.3 (35-45) L 11/23/17 04:56 POC ABG pO2 100 (80-105) 11/23/17 04:56 POC ABG HCO3 20.8 11/23/17 04:56 POC ABG Total CO2 22 11/23/17 04:56 POC ABG O2 Sat 98 11/23/17 04:56 PT/INR, D-dimer PT 23.6 Sec. (12.2-14.9) H 11/26/17 06:29 INR 1.96 (0.87-1.13) H 11/26/17 06:29 Abnormal lab findings: Abnormal Labs 11/11/17 11/11/17 11/11/17 23:18 23:20 23:20 WBC RBC Hgb 10.4 L Hct 32.6 L D MCV MCH 27 L MCHC RDW 17.4 H Plt Count 105 L Lymph % (Auto) [place] % (Auto) Lymph # [place] # Seg Neutrophils % Seg Neuts % (Manual) Lymphocytes % (Manual) 8.0 L Monocytes % (Manual) Nucleated RBC % 1.0 H Seg Neutrophils # Seg Neutrophils # Man Lymphocytes # (Manual) 0.7 L Monocytes # (Manual) PT INR POC ABG pH 7.550 H POC ABG pCO2 31.6 L POC ABG pO2 Sodium 146 H Potassium Chloride Carbon Dioxide BUN 26 H Creatinine 1.7 H D Glucose 133 H POC Glucose Lactic Acid Calcium Magnesium AST ALT Alkaline Phosphatase Troponin T 0.117 H* C-Reactive Protein Total Protein Albumin 2.5 L LDL Cholesterol Direct 42 L HDL Cholesterol 24 L Hepatitis C Antibody Crossmatch 11/11/17 11/12/17 11/12/17 23:20 00:23 00:23 WBC RBC Hgb Hct MCV MCH MCHC RDW Plt Count Lymph % (Auto) [place] % (Auto) Lymph # [place] # Seg Neutrophils % Seg Neuts % (Manual) Lymphocytes % (Manual) Monocytes % (Manual) Nucleated RBC % Seg Neutrophils # Seg Neutrophils # Man Lymphocytes # (Manual) Monocytes # (Manual) PT 16.7 H INR 1.28 H POC ABG pH POC ABG pCO2 POC ABG pO2 Sodium Potassium Chloride Carbon Dioxide BUN Creatinine Glucose POC Glucose Lactic Acid 3.20 H* Calcium Magnesium AST ALT Alkaline Phosphatase Troponin T C-Reactive Protein 25.70 H Total Protein Albumin LDL Cholesterol Direct HDL Cholesterol Hepatitis C Antibody Crossmatch 11/12/17 11/12/17 11/12/17 00:46 01:27 01:27 WBC RBC Hgb Hct MCV MCH MCHC RDW Plt Count Lymph % (Auto) [place] % (Auto) Lymph # [place] # Seg Neutrophils % Seg Neuts % (Manual) Lymphocytes % (Manual) Monocytes % (Manual) Nucleated RBC % Seg Neutrophils # Seg Neutrophils # Man Lymphocytes # (Manual) Monocytes # (Manual) PT INR POC ABG pH 7.495 H POC ABG pCO2 32.0 L POC ABG pO2 64 L Sodium Potassium Chloride Carbon Dioxide BUN Creatinine Glucose POC Glucose Lactic Acid 3.70 H* Calcium Magnesium AST ALT Alkaline Phosphatase Troponin T 0.096 H C-Reactive Protein Total Protein Albumin LDL Cholesterol Direct HDL Cholesterol Hepatitis C Antibody Crossmatch 11/12/17 11/12/17 11/12/17 03:21 04:50 06:27 WBC RBC Hgb Hct MCV MCH MCHC RDW Plt Count Lymph % (Auto) [place] % (Auto) Lymph # [place] # Seg Neutrophils % Seg Neuts % (Manual) Lymphocytes % (Manual) Monocytes % (Manual) Nucleated RBC % Seg Neutrophils # Seg Neutrophils # Man Lymphocytes # (Manual) Monocytes # (Manual) PT INR POC ABG pH POC ABG pCO2 POC ABG pO2 109 H Sodium Potassium Chloride Carbon Dioxide BUN Creatinine Glucose POC Glucose Lactic Acid 3.80 H* 2.20 H* Calcium Magnesium AST ALT Alkaline Phosphatase Troponin T C-Reactive Protein Total Protein Albumin LDL Cholesterol Direct HDL Cholesterol Hepatitis C Antibody Crossmatch 11/12/17 11/12/17 11/12/17 09:24 09:24 09:24 WBC RBC Hgb 10.4 L Hct 33.4 L MCV MCH MCHC RDW Plt Count Lymph % (Auto) [place] % (Auto) Lymph # [place] # Seg Neutrophils % Seg Neuts % (Manual) Lymphocytes % (Manual) Monocytes % (Manual) Nucleated RBC % Seg Neutrophils # Seg Neutrophils # Man Lymphocytes # (Manual) Monocytes # (Manual) PT INR POC ABG pH POC ABG pCO2 POC ABG pO2 Sodium Potassium Chloride Carbon Dioxide BUN Creatinine Glucose POC Glucose Lactic Acid 2.90 H* Calcium Magnesium AST ALT Alkaline Phosphatase Troponin T 0.091 H C-Reactive Protein Total Protein Albumin LDL Cholesterol Direct HDL Cholesterol Hepatitis C Antibody Crossmatch 11/12/17 11/12/17 11/12/17 12:56 20:03 Unknown WBC RBC Hgb Hct MCV MCH MCHC RDW Plt Count Lymph % (Auto) [place] % (Auto) Lymph # [place] # Seg Neutrophils % Seg Neuts % (Manual) Lymphocytes % (Manual) Monocytes % (Manual) Nucleated RBC % Seg Neutrophils # Seg Neutrophils # Man Lymphocytes # (Manual) Monocytes # (Manual) PT INR POC ABG pH POC ABG pCO2 POC ABG pO2 Sodium Potassium Chloride Carbon Dioxide BUN Creatinine Glucose POC Glucose Lactic Acid 3.60 H* Calcium Magnesium AST ALT Alkaline Phosphatase Troponin T 0.102 H* 0.156 H* D C-Reactive Protein Total Protein Albumin LDL Cholesterol Direct HDL Cholesterol Hepatitis C Antibody Crossmatch 11/12/17 11/13/17 11/13/17 Unknown 04:50 04:50 WBC 12.2 H RBC 3.51 L Hgb 9.3 L Hct 30.1 L MCV MCH 26 L MCHC 31 L RDW 18.0 H Plt Count 128 L Lymph % (Auto) 8.6 L [place] % (Auto) 11.1 H Lymph # 1.1 L [place] # 1.4 H Seg Neutrophils % 80.1 H Seg Neuts % (Manual) Lymphocytes % (Manual) Monocytes % (Manual) Nucleated RBC % Seg Neutrophils # 9.8 H Seg Neutrophils # Man Lymphocytes # (Manual) Monocytes # (Manual) PT INR POC ABG pH POC ABG pCO2 POC ABG pO2 Sodium 149 H Potassium 5.1 H Chloride 114.4 H Carbon Dioxide 18 L BUN 52 H Creatinine 3.3 H D Glucose 129 H POC Glucose Lactic Acid Calcium 7.9 L Magnesium AST ALT Alkaline Phosphatase Troponin T 0.098 H C-Reactive Protein Total Protein Albumin LDL Cholesterol Direct HDL Cholesterol Hepatitis C Antibody Crossmatch 11/13/17 11/13/17 11/14/17 04:51 09:34 04:21 WBC RBC Hgb Hct MCV MCH MCHC RDW Plt Count Lymph % (Auto) [place] % (Auto) Lymph # [place] # Seg Neutrophils % Seg Neuts % (Manual) Lymphocytes % (Manual) Monocytes % (Manual) Nucleated RBC % Seg Neutrophils # Seg Neutrophils # Man Lymphocytes # (Manual) Monocytes # (Manual) PT INR POC ABG pH POC ABG pCO2 30.1 L 29.8 L POC ABG pO2 135 H Sodium Potassium Chloride Carbon Dioxide BUN Creatinine Glucose POC Glucose Lactic Acid 2.10 H* Calcium Magnesium AST ALT Alkaline Phosphatase Troponin T C-Reactive Protein Total Protein Albumin LDL Cholesterol Direct HDL Cholesterol Hepatitis C Antibody Crossmatch 11/15/17 11/15/17 11/16/17 04:52 15:50 05:17 WBC RBC Hgb Hct MCV MCH MCHC RDW Plt Count Lymph % (Auto) [place] % (Auto) Lymph # [place] # Seg Neutrophils % Seg Neuts % (Manual) Lymphocytes % (Manual) Monocytes % (Manual) Nucleated RBC % Seg Neutrophils # Seg Neutrophils # Man Lymphocytes # (Manual) Monocytes # (Manual) PT INR POC ABG pH POC ABG pCO2 29.5 L 31.5 L POC ABG pO2 115 H 122 H Sodium 154 H Potassium Chloride 117.9 H Carbon Dioxide 19 L BUN 87 H Creatinine 4.1 H Glucose POC Glucose Lactic Acid Calcium 8.1 L Magnesium AST ALT Alkaline Phosphatase Troponin T C-Reactive Protein Total Protein Albumin LDL Cholesterol Direct HDL Cholesterol Hepatitis C Antibody Crossmatch 11/16/17 11/17/17 11/17/17 16:37 04:07 10:00 WBC 14.7 H RBC 3.23 L Hgb 8.3 L Hct 28.1 L MCV MCH 26 L MCHC 30 L RDW 18.8 H Plt Count Lymph % (Auto) [place] % (Auto) Lymph # [place] # Seg Neutrophils % Seg Neuts % (Manual) 75 H Lymphocytes % (Manual) 8.0 L Monocytes % (Manual) Nucleated RBC % 1.0 H Seg Neutrophils # Seg Neutrophils # Man 11.0 H Lymphocytes # (Manual) Monocytes # (Manual) 0.9 H PT INR POC ABG pH POC ABG pCO2 POC ABG pO2 Sodium 153 H 155 H Potassium Chloride 117.3 H 119.4 H Carbon Dioxide 19 L 20 L BUN 90 H 89 H Creatinine 3.9 H 3.6 H Glucose 111 H 115 H POC Glucose Lactic Acid Calcium 8.1 L 8.0 L Magnesium AST ALT Alkaline Phosphatase Troponin T C-Reactive Protein Total Protein Albumin LDL Cholesterol Direct HDL Cholesterol Hepatitis C Antibody Crossmatch 11/18/17 11/18/17 11/18/17 04:34 04:34 04:34 WBC 15.5 H RBC 3.13 L Hgb 8.1 L Hct 26.3 L MCV MCH 26 L MCHC 31 L RDW 18.6 H Plt Count Lymph % (Auto) [place] % (Auto) Lymph # [place] # Seg Neutrophils % Seg Neuts % (Manual) 81.0 H Lymphocytes % (Manual) 7.0 L Monocytes % (Manual) Nucleated RBC % 1.0 H Seg Neutrophils # Seg Neutrophils # Man 12.6 H Lymphocytes # (Manual) 1.1 L Monocytes # (Manual) PT 16.7 H INR 1.30 H POC ABG pH POC ABG pCO2 POC ABG pO2 Sodium 155 H Potassium 3.2 L Chloride 121.0 H Carbon Dioxide 20 L BUN 74 H Creatinine 2.9 H Glucose 126 H POC Glucose Lactic Acid Calcium 7.9 L Magnesium AST ALT Alkaline Phosphatase Troponin T C-Reactive Protein Total Protein Albumin LDL Cholesterol Direct HDL Cholesterol Hepatitis C Antibody Crossmatch 11/19/17 11/19/17 11/20/17 04:44 04:44 00:38 WBC 19.0 H 22.2 H RBC 3.20 L 3.17 L Hgb 8.4 L 7.9 L Hct 27.9 L 26.4 L MCV 83 L MCH 26 L 25 L MCHC 30 L 30 L RDW 19.1 H 18.9 H Plt Count Lymph % (Auto) [place] % (Auto) Lymph # [place] # Seg Neutrophils % Seg Neuts % (Manual) 83.0 H Lymphocytes % (Manual) 3.0 L Monocytes % (Manual) 9.0 H Nucleated RBC % Seg Neutrophils # Seg Neutrophils # Man 18.4 H Lymphocytes # (Manual) 0.7 L Monocytes # (Manual) 2.0 H PT INR POC ABG pH POC ABG pCO2 POC ABG pO2 Sodium 152 H Potassium Chloride 117.1 H Carbon Dioxide 17 L BUN 66 H Creatinine 2.8 H Glucose 119 H POC Glucose Lactic Acid Calcium 7.8 L Magnesium 2.70 H AST ALT Alkaline Phosphatase Troponin T C-Reactive Protein Total Protein Albumin LDL Cholesterol Direct HDL Cholesterol Hepatitis C Antibody Crossmatch 11/20/17 11/20/17 11/20/17 03:29 04:48 13:38 WBC RBC Hgb Hct MCV MCH MCHC RDW Plt Count Lymph % (Auto) [place] % (Auto) Lymph # [place] # Seg Neutrophils % Seg Neuts % (Manual) Lymphocytes % (Manual) Monocytes % (Manual) Nucleated RBC % Seg Neutrophils # Seg Neutrophils # Man Lymphocytes # (Manual) Monocytes # (Manual) PT INR POC ABG pH POC ABG pCO2 29.4 L POC ABG pO2 Sodium 148 H Potassium 3.4 L Chloride 113.7 H Carbon Dioxide 18 L BUN 59 H Creatinine 2.7 H Glucose 113 H POC Glucose 128 H Lactic Acid Calcium 7.8 L Magnesium AST ALT Alkaline Phosphatase Troponin T C-Reactive Protein Total Protein Albumin LDL Cholesterol Direct HDL Cholesterol Hepatitis C Antibody Crossmatch 11/20/17 11/20/17 11/21/17 17:38 23:40 00:13 WBC RBC Hgb 8.4 L Hct 28.0 L MCV MCH MCHC RDW Plt Count Lymph % (Auto) [place] % (Auto) Lymph # [place] # Seg Neutrophils % Seg Neuts % (Manual) Lymphocytes % (Manual) Monocytes % (Manual) Nucleated RBC % Seg Neutrophils # Seg Neutrophils # Man Lymphocytes # (Manual) Monocytes # (Manual) PT INR POC ABG pH POC ABG pCO2 POC ABG pO2 Sodium Potassium Chloride Carbon Dioxide BUN Creatinine Glucose POC Glucose 115 H 145 H Lactic Acid Calcium Magnesium AST ALT Alkaline Phosphatase Troponin T C-Reactive Protein Total Protein Albumin LDL Cholesterol Direct HDL Cholesterol Hepatitis C Antibody Crossmatch 11/21/17 11/21/17 11/21/17 04:30 04:30 04:58 WBC 21.0 H RBC Hgb 9.6 L Hct 32.7 L MCV MCH 25 L MCHC 29 L RDW 19.7 H Plt Count 746 H Lymph % (Auto) [place] % (Auto) Lymph # [place] # Seg Neutrophils % Seg Neuts % (Manual) Lymphocytes % (Manual) Monocytes % (Manual) Nucleated RBC % Seg Neutrophils # Seg Neutrophils # Man Lymphocytes # (Manual) Monocytes # (Manual) PT INR POC ABG pH POC ABG pCO2 POC ABG pO2 Sodium Potassium Chloride 109.4 H Carbon Dioxide 14 L BUN 59 H Creatinine 3.0 H Glucose 137 H POC Glucose 132 H Lactic Acid Calcium 7.6 L Magnesium AST ALT Alkaline Phosphatase Troponin T C-Reactive Protein Total Protein Albumin LDL Cholesterol Direct HDL Cholesterol Hepatitis C Antibody Crossmatch 11/21/17 11/21/17 11/21/17 06:30 13:43 14:17 WBC 38.2 H RBC Hgb 9.0 L Hct 32.3 L MCV MCH 25 L MCHC 28 L RDW 20.0 H Plt Count 766 H Lymph % (Auto) [place] % (Auto) Lymph # [place] # Seg Neutrophils % Seg Neuts % (Manual) 85.0 H Lymphocytes % (Manual) 1.0 L Monocytes % (Manual) Nucleated RBC % 2.0 H Seg Neutrophils # Seg Neutrophils # Man 32.5 H Lymphocytes # (Manual) 0.4 L Monocytes # (Manual) 2.3 H PT INR POC ABG pH POC ABG pCO2 18.6 L POC ABG pO2 121 H Sodium 146 H Potassium Chloride 110.9 H Carbon Dioxide 11 L BUN 62 H Creatinine 4.0 H Glucose 64 L POC Glucose Lactic Acid Calcium 7.6 L Magnesium AST ALT Alkaline Phosphatase Troponin T C-Reactive Protein Total Protein Albumin LDL Cholesterol Direct HDL Cholesterol Hepatitis C Antibody Crossmatch 11/21/17 11/21/17 11/22/17 14:17 19:09 00:05 WBC RBC Hgb Hct MCV MCH MCHC RDW Plt Count Lymph % (Auto) [place] % (Auto) Lymph # [place] # Seg Neutrophils % Seg Neuts % (Manual) Lymphocytes % (Manual) Monocytes % (Manual) Nucleated RBC % Seg Neutrophils # Seg Neutrophils # Man Lymphocytes # (Manual) Monocytes # (Manual) PT INR POC ABG pH POC ABG pCO2 20.0 L POC ABG pO2 Sodium Potassium Chloride Carbon Dioxide BUN Creatinine Glucose POC Glucose 127 H Lactic Acid 7.70 H* Calcium Magnesium AST ALT Alkaline Phosphatase Troponin T C-Reactive Protein Total Protein Albumin LDL Cholesterol Direct HDL Cholesterol Hepatitis C Antibody Crossmatch 11/22/17 11/22/17 11/22/17 03:53 06:00 07:25 WBC RBC Hgb Hct MCV MCH MCHC RDW Plt Count Lymph % (Auto) [place] % (Auto) Lymph # [place] # Seg Neutrophils % Seg Neuts % (Manual) Lymphocytes % (Manual) Monocytes % (Manual) Nucleated RBC % Seg Neutrophils # Seg Neutrophils # Man Lymphocytes # (Manual) Monocytes # (Manual) PT INR POC ABG pH POC ABG pCO2 22.2 L POC ABG pO2 Sodium 147 H Potassium Chloride 111.9 H Carbon Dioxide 16 L BUN 72 H Creatinine 5.1 H Glucose 181 H POC Glucose 180 H Lactic Acid Calcium 7.1 L Magnesium AST ALT Alkaline Phosphatase Troponin T C-Reactive Protein Total Protein Albumin LDL Cholesterol Direct HDL Cholesterol Hepatitis C Antibody Crossmatch 11/22/17 11/22/17 11/22/17 07:25 07:25 12:05 WBC 31.4 H RBC 3.22 L Hgb 8.0 L Hct 26.7 L MCV 83 L MCH 25 L MCHC 30 L RDW 19.4 H Plt Count 602 H Lymph % (Auto) [place] % (Auto) Lymph # [place] # Seg Neutrophils % Seg Neuts % (Manual) Lymphocytes % (Manual) Monocytes % (Manual) Nucleated RBC % Seg Neutrophils # Seg Neutrophils # Man Lymphocytes # (Manual) Monocytes # (Manual) PT INR POC ABG pH POC ABG pCO2 POC ABG pO2 Sodium Potassium Chloride Carbon Dioxide BUN Creatinine Glucose POC Glucose 182 H Lactic Acid 5.00 H* Calcium Magnesium AST ALT Alkaline Phosphatase Troponin T C-Reactive Protein Total Protein Albumin LDL Cholesterol Direct HDL Cholesterol Hepatitis C Antibody Crossmatch 11/22/17 11/23/17 11/23/17 19:45 01:28 04:56 WBC RBC Hgb Hct MCV MCH MCHC RDW Plt Count Lymph % (Auto) [place] % (Auto) Lymph # [place] # Seg Neutrophils % Seg Neuts % (Manual) Lymphocytes % (Manual) Monocytes % (Manual) Nucleated RBC % Seg Neutrophils # Seg Neutrophils # Man Lymphocytes # (Manual) Monocytes # (Manual) PT INR POC ABG pH 7.505 H POC ABG pCO2 26.3 L POC ABG pO2 Sodium Potassium Chloride Carbon Dioxide BUN Creatinine Glucose POC Glucose 165 H Lactic Acid Calcium Magnesium AST ALT Alkaline Phosphatase Troponin T C-Reactive Protein Total Protein Albumin LDL Cholesterol Direct HDL Cholesterol Hepatitis C Antibody Reactive A Crossmatch 11/23/17 11/23/17 11/23/17 07:05 12:32 17:53 WBC RBC Hgb Hct MCV MCH MCHC RDW Plt Count Lymph % (Auto) [place] % (Auto) Lymph # [place] # Seg Neutrophils % Seg Neuts % (Manual) Lymphocytes % (Manual) Monocytes % (Manual) Nucleated RBC % Seg Neutrophils # Seg Neutrophils # Man Lymphocytes # (Manual) Monocytes # (Manual) PT INR POC ABG pH POC ABG pCO2 POC ABG pO2 Sodium Potassium Chloride Carbon Dioxide 18 L BUN 61 H Creatinine 4.2 H Glucose 153 H POC Glucose 138 H 173 H Lactic Acid Calcium 7.5 L Magnesium AST ALT Alkaline Phosphatase Troponin T C-Reactive Protein Total Protein Albumin LDL Cholesterol Direct HDL Cholesterol Hepatitis C Antibody Crossmatch 11/23/17 11/24/17 11/24/17 23:41 05:42 05:42 WBC 21.5 H RBC 2.48 L Hgb 6.2 L Hct 20.3 L D MCV 82 L MCH 25 L MCHC 31 L RDW 18.9 H Plt Count Lymph % (Auto) [place] % (Auto) Lymph # [place] # Seg Neutrophils % Seg Neuts % (Manual) 94.0 H Lymphocytes % (Manual) 3.0 L Monocytes % (Manual) Nucleated RBC % Seg Neutrophils # Seg Neutrophils # Man 20.2 H Lymphocytes # (Manual) 0.6 L Monocytes # (Manual) PT INR POC ABG pH POC ABG pCO2 POC ABG pO2 Sodium 149 H Potassium 2.8 L* D Chloride 113.9 H Carbon Dioxide 19 L BUN 31 H Creatinine 2.3 H Glucose 103 H POC Glucose 133 H Lactic Acid Calcium 5.3 L* D Magnesium 1.30 L AST ALT Alkaline Phosphatase Troponin T C-Reactive Protein Total Protein Albumin LDL Cholesterol Direct HDL Cholesterol Hepatitis C Antibody Crossmatch 11/24/17 11/24/17 11/24/17 05:42 08:27 08:27 WBC RBC Hgb Hct MCV MCH MCHC RDW Plt Count Lymph % (Auto) [place] % (Auto) Lymph # [place] # Seg Neutrophils % Seg Neuts % (Manual) Lymphocytes % (Manual) Monocytes % (Manual) Nucleated RBC % Seg Neutrophils # Seg Neutrophils # Man Lymphocytes # (Manual) Monocytes # (Manual) PT INR POC ABG pH POC ABG pCO2 POC ABG pO2 Sodium Potassium Chloride Carbon Dioxide BUN Creatinine Glucose POC Glucose Lactic Acid 5.40 H* 5.20 H* Calcium Magnesium AST ALT Alkaline Phosphatase Troponin T C-Reactive Protein Total Protein Albumin LDL Cholesterol Direct HDL Cholesterol Hepatitis C Antibody Crossmatch See Detail 11/24/17 11/24/17 11/24/17 12:13 17:22 21:53 WBC 23.0 H RBC 3.32 L Hgb 8.8 L Hct 27.1 L D MCV 82 L MCH 26 L MCHC RDW 17.3 H Plt Count Lymph % (Auto) [place] % (Auto) Lymph # [place] # Seg Neutrophils % Seg Neuts % (Manual) Lymphocytes % (Manual) Monocytes % (Manual) Nucleated RBC % Seg Neutrophils # Seg Neutrophils # Man Lymphocytes # (Manual) Monocytes # (Manual) PT INR POC ABG pH POC ABG pCO2 POC ABG pO2 Sodium Potassium Chloride Carbon Dioxide BUN Creatinine Glucose POC Glucose 138 H 180 H Lactic Acid Calcium Magnesium AST ALT Alkaline Phosphatase Troponin T C-Reactive Protein Total Protein Albumin LDL Cholesterol Direct HDL Cholesterol Hepatitis C Antibody Crossmatch 11/24/17 11/24/17 11/25/17 21:53 23:28 04:19 WBC RBC Hgb Hct MCV MCH MCHC RDW Plt Count Lymph % (Auto) [place] % (Auto) Lymph # [place] # Seg Neutrophils % Seg Neuts % (Manual) Lymphocytes % (Manual) Monocytes % (Manual) Nucleated RBC % Seg Neutrophils # Seg Neutrophils # Man Lymphocytes # (Manual) Monocytes # (Manual) PT INR POC ABG pH POC ABG pCO2 POC ABG pO2 Sodium Potassium Chloride 96.3 L Carbon Dioxide BUN 28 H 31 H Creatinine 2.3 H 2.6 H Glucose 125 H 101 H POC Glucose 111 H Lactic Acid Calcium 7.5 L D 7.4 L Magnesium AST 170 H ALT 179 H Alkaline Phosphatase 175 H Troponin T C-Reactive Protein Total Protein 5.5 L Albumin 1.8 L LDL Cholesterol Direct HDL Cholesterol Hepatitis C Antibody Crossmatch 11/25/17 11/25/17 11/26/17 04:19 04:19 06:29 WBC 22.5 H RBC 3.48 L Hgb 9.1 L Hct 28.3 L MCV 81 L MCH 26 L MCHC RDW 17.4 H Plt Count Lymph % (Auto) [place] % (Auto) Lymph # [place] # Seg Neutrophils % Seg Neuts % (Manual) Lymphocytes % (Manual) Monocytes % (Manual) Nucleated RBC % Seg Neutrophils # Seg Neutrophils # Man Lymphocytes # (Manual) Monocytes # (Manual) PT 23.6 H INR 1.96 H POC ABG pH POC ABG pCO2 POC ABG pO2 Sodium Potassium Chloride Carbon Dioxide BUN 31 H Creatinine 2.6 H Glucose 101 H POC Glucose Lactic Acid Calcium 7.5 L Magnesium AST ALT Alkaline Phosphatase Troponin T C-Reactive Protein Total Protein Albumin LDL Cholesterol Direct HDL Cholesterol Hepatitis C Antibody Crossmatch 11/26/17 11/27/17 11/27/17 06:34 04:06 04:06 WBC 11.3 H RBC 3.13 L Hgb 8.4 L Hct 25.8 L MCV 82 L MCH 27 L MCHC RDW 17.7 H Plt Count Lymph % (Auto) 7.4 L [place] % (Auto) Lymph # 0.8 L [place] # Seg Neutrophils % 83.7 H Seg Neuts % (Manual) Lymphocytes % (Manual) Monocytes % (Manual) Nucleated RBC % Seg Neutrophils # 9.5 H Seg Neutrophils # Man Lymphocytes # (Manual) Monocytes # (Manual) PT INR POC ABG pH POC ABG pCO2 POC ABG pO2 Sodium Potassium Chloride 97.9 L Carbon Dioxide BUN 43 H 29 H Creatinine 3.5 H 2.9 H Glucose POC Glucose Lactic Acid Calcium 7.5 L 8.1 L Magnesium AST ALT Alkaline Phosphatase Troponin T C-Reactive Protein Total Protein Albumin LDL Cholesterol Direct HDL Cholesterol Hepatitis C Antibody Crossmatch Chest x-ray: report reviewed, image reviewed
--- NOTE | 2017-11-27 14:53 | Progress Note ---
Assessment and Plan - Patient Problems (1) Gastrostomy malfunction Current Visit: Yes Status: Acute Plan to address problem: Pt is stable. After reviewing the records, discussing the case with multiple attendings, and seeing the patient, it is clear that we do not have an acute perforation. Most likely, the PEG tube started to migrate out of position prior to 11/18 as evidenced by no PEG button seen on EGD and no obvious hole in the stomach. As the contrast is restricted to certain areas in the abdomen, the fluid is loculated. The "ascites" may be tube feeds and/or reactionary fluid. Regardless, patient is not showing signs of obvious peritonitis. In this case, it may be prudent to try placing a few drains in the abdomen to remove that largest collections. I have already discussed this case with Dr. Moreira who agreed to review the case and see if that was possible. The alternative would be to take the patient for an ex-lap and washout the abdomen. I'm concerned that there may be a lot of inflammatory changes in the abdomen which would put him at risk for bowel injuries from the procedure. Therefore, this will be our back-up plan if the drains do not resolve the problem. As for nutritional access , for now, I would recommend an NGT. I doubt he has an active leak, so there is no need to test the stomach prior to using it. I have explained this plan in detail to the daughter (Jannette) and the attendings from ICU, GI, and hospitalist service. All were in agreement. - 11/25/17 Initial Consult Pt appears stable. WBC much improved!!! I think the drainage has helped significantly. appreciate IR assistance. Will monitor for now. Will probably get another CT next week to assess status. Spoke with daughter (Jannette) and updated her. She was appreciative. 1) Continue drainage of abdomen. 2) Abx per ID 3) May use DHT for feeds Please call with questions. Time=15min Subjective Date of service: 11/27/17 Patient Reports: Positive: other (nurse reports no new problems) Objective Vital Signs - 12hr 11/27/17 11/27/17 11/27/17 03:00 03:30 04:00 Temperature 98.5 F Pulse Rate 97 H 89 88 Pulse Rate [ Left Dorsalis Pedis] Pulse Rate [ Right From Monitor] Respiratory 17 14 13 Rate Blood Pressure 155/88 114/66 118/71 O2 Sat by Pulse 100 98 98 Oximetry O2 Sat by Pulse Oximetry [ Assessment] 11/27/17 11/27/17 11/27/17 04:25 04:30 05:00 Temperature Pulse Rate 81 85 95 H Pulse Rate [ Left Dorsalis Pedis] Pulse Rate [ Right From Monitor] Respiratory 14 14 Rate Blood Pressure 116/67 116/67 144/81 O2 Sat by Pulse 99 98 99 Oximetry O2 Sat by Pulse Oximetry [ Assessment] 11/27/17 11/27/17 11/27/17 05:30 06:00 06:30 Temperature Pulse Rate 97 H 85 87 Pulse Rate [ 87 Left Dorsalis Pedis] Pulse Rate [ 80 Right From Monitor] Respiratory 16 13 17 Rate Blood Pressure 144/83 124/75 135/76 O2 Sat by Pulse 100 100 100 Oximetry O2 Sat by Pulse Oximetry [ Assessment] 11/27/17 11/27/17 11/27/17 07:00 07:30 08:00 Temperature Pulse Rate 94 H 75 72 Pulse Rate [ Left Dorsalis Pedis] Pulse Rate [ 94 H Right From Monitor] Respiratory 16 13 13 Rate Blood Pressure 154/91 125/72 164/78 O2 Sat by Pulse 100 100 100 Oximetry O2 Sat by Pulse Oximetry [ Assessment] 11/27/17 11/27/17 11/27/17 08:30 09:00 09:30 Temperature 97.2 F L Pulse Rate 75 93 H 78 Pulse Rate [ Left Dorsalis Pedis] Pulse Rate [ Right From Monitor] Respiratory 14 13 13 Rate Blood Pressure 130/69 154/86 133/70 O2 Sat by Pulse 100 100 100 Oximetry O2 Sat by Pulse 100 Oximetry [ Assessment] 11/27/17 11/27/17 11/27/17 10:00 10:30 11:00 Temperature Pulse Rate 92 H 95 H 89 Pulse Rate [ Left Dorsalis Pedis] Pulse Rate [ Right From Monitor] Respiratory 20 23 21 Rate Blood Pressure 135/72 153/85 149/83 O2 Sat by Pulse 100 99 100 Oximetry O2 Sat by Pulse Oximetry [ Assessment] 11/27/17 11/27/17 11/27/17 11:30 12:00 12:30 Temperature Pulse Rate 101 H 101 H 97 H Pulse Rate [ Left Dorsalis Pedis] Pulse Rate [ Right From Monitor] Respiratory 24 21 21 Rate Blood Pressure 163/93 137/75 154/83 O2 Sat by Pulse 100 100 100 Oximetry O2 Sat by Pulse Oximetry [ Assessment] 11/27/17 11/27/17 11/27/17 12:34 13:00 13:04 Temperature 97.4 F L Pulse Rate 88 105 H Pulse Rate [ Left Dorsalis Pedis] Pulse Rate [ Right From Monitor] Respiratory 25 H Rate Blood Pressure 154/83 138/83 O2 Sat by Pulse 99 100 Oximetry O2 Sat by Pulse Oximetry [ Assessment] 11/27/17 11/27/17 11/27/17 13:30 14:00 14:30 Temperature Pulse Rate 96 H 97 H 90 Pulse Rate [ Left Dorsalis Pedis] Pulse Rate [ Right From Monitor] Respiratory 23 24 24 Rate Blood Pressure 133/75 138/79 140/78 O2 Sat by Pulse 100 100 100 Oximetry O2 Sat by Pulse Oximetry [ Assessment] - General physical appearance no distress, no pain, other (not interactive) - Respiratory normal expansion, normal respiratory effort - Abdomen soft, bowel sounds hypoactive (BS have resumed), distended (less today), not guarding, not rigid, other (drains in place. RUQ - serosang. The other two are yellowish/greyish in color and slightly thick) - Labs 11/27/17 04:06 11/27/17 04:06 Diabetes panel 11/27/17 Range/Units 04:06 Sodium 139 (137-145) mmol/L Potassium 4.1 (3.6-5.0) mmol/L Chloride 97.9 L (98-107) mmol/L Carbon Dioxide 27 (22-30) mmol/L BUN 29 H (9-20) mg/dL Creatinine 2.9 H (0.8-1.5) mg/dL Glucose 100 (75-100) mg/dL Calcium 8.1 L (8.4-10.2) mg/dL Calcium panel 11/27/17 Range/Units 04:06 Calcium 8.1 L (8.4-10.2) mg/dL Pituitary panel 11/27/17 Range/Units 04:06 Sodium 139 (137-145) mmol/L Potassium 4.1 (3.6-5.0) mmol/L Chloride 97.9 L (98-107) mmol/L Carbon Dioxide 27 (22-30) mmol/L BUN 29 H (9-20) mg/dL Creatinine 2.9 H (0.8-1.5) mg/dL Glucose 100 (75-100) mg/dL Calcium 8.1 L (8.4-10.2) mg/dL Adrenal panel 11/27/17 Range/Units 04:06 Sodium 139 (137-145) mmol/L Potassium 4.1 (3.6-5.0) mmol/L Chloride 97.9 L (98-107) mmol/L Carbon Dioxide 27 (22-30) mmol/L BUN 29 H (9-20) mg/dL Creatinine 2.9 H (0.8-1.5) mg/dL Glucose 100 (75-100) mg/dL Calcium 8.1 L (8.4-10.2) mg/dL
--- NOTE | 2017-11-27 16:05 | Progress Note ---
Assessment and Plan Assessment and plan: Mr. 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 He had a Carotid doppler done that revealed a right ICA 50-79% stenosis. CTA of the neck revealed 80% stenosis of the right ICA with probable 50% stenosis of the origin of the right common carotid artery. His symptoms were thought to be due to the Carotid artery stenosis which was disheartening since he was on Aspirin and plavix. He was scheduled for right CEA but needed Cardiac clearance. He underwent stress test on 10/05/17 and Payment Poster stated he was stable for non-cardiac history, low to moderate perioperative risk. So, he underwent right carotid enarterectomy on 10/09/17. Following the surgery, he developed recurrent left sided weakness/hemiparesis was taken to OR again on for Open Thrombectomy of Right Internal Carotid Artery and Injection of TPA into the Distal Artery. CT head obtained on 10/12/17 showed massive right cerebral hemisphere acute CVA with midline shift. He was discharged on 11/10/17 to [facility] but returned to ED on 11/12/17 for sob. He was admitted for Aspiration post-obstructive pneumonia with suspected mucus plug and subsequently intubated on admission. ON 11/20/17, patient went for Tracheostomy by Dr. Hughes, ENT. Then on 11/21/17 patient went into shock, most sepsis as WBC went up to 38k; most likely Aspiration pneumonitis, antibiotics restarted. He was on maximum dose of Levophed and Neosynephrine (right femoral line placed 11/21/[address] Celis for vasopressors). Then 11/22/17 (Thursday morning) the Neosynephrine weaned off and Levophed down to 10 mcg, also Dr. Palmer placed a left femoral tunnel cath for Hemodialysis. Today, Levophed has been weaned off. * CTA chest IMPRESSION: There is no thoracic aortic aneurysm or dissection.. There is no pulmonary embolism.. There is complete atelectasis of the left lung causing volume loss and mediastinal shift to the left. This is due to blockage of the left bronchus by the endotracheal tube which is in the right mainstem bronchus. There is no pleural effusion or pneumothorax.. There is pneumoperitoneum and ascites.. Dr. Navarro was notified by telephone at 3:20 a.m. central. * 1v Abd XRAY IMPRESSION: Nasogastric tube ends in the stomach. A PEG tube is identified. Bowel gas pattern is nonobstructive. -Acute on chronic blood loss anemia w/Coffee-ground material from peg tube: GI is following, treat with ppi iv bid, EGD done 11/18/17 showed 8 mm cratered, 10 mm linear ulcer proximal lesser curvature with erythema but no other bleeding stigmata, gastritis and 4-5 cm hiatal hernia 2 UNITS PRBC TRANSFUSED. MONITOR H/H -Concerning for intrabdominal abscess: Vascular drains placed, WBC and renal function improving. Disucssed with ID following. Cultures growing GNR on surgical culture -Acute hypoxic respiratory failure due to Pneumonia on MV>96 hours s/p Tracheostomy 11/20/17: continue MV, daily weaning attempt -Leukocyotosis with Sepsis with transient septic shock, poa: shock resolved, continue abx, ID is following -Aspiration pneumonia, with mucus plugging/post obstructive pna poa: [employer] Supervisor is following, following sunction protocols -Acute encephalopathy: treat supportively. -Hypernatremia: treat with free water, monitor bmp closely -Hypokalemia: replace and monitor closely -ARF vasomotor nephropathy, poa: IV fluids, monitor bmp closely -Dysphagia with aspiration: s/p peg tube - No family present at this time. -Advance care planning: full code -Poor prognosis. Called family to provide updated information Note copied in order to maintain accurate continuation in this complex case. Changes made to indicate current events and management. The high probability of a clinically significant, sudden or life threatening deterioration of the [HEMATOLOGY, PULMONARY] system(s) required my full and direct attention, intervention and personal management. The aggregate critical care time was [45] minutes. This time is in addition to time spent performing reported procedures but includes the following: [X] Data Review and interpretation [X] Patient assessment and monitoring of vital signs [X] Documentation [X] Medication orders and management History Interval history: Patient was seen and examined. Still not following commands. appears sedated Hospitalist Physical - Physical exam Narrative exam: GEN: ill appearing, not sedated, on MV via trach, HEENT: NCAT, pupils reactive, anicteric, NECK: supple, no adenopathy, no thyromegaly, no JVD, trach in place CVS/HEART: RRR, normal S1S2, pulses present bilaterally CHEST/LUNGS: Symmetrical chest expansion, good air entry bilaterally GI/Abdomen: soft, distended, pbs, +peg tube in place. [address] and draining EXT/Skin: generalized edema x 4 MSK: left hemiparesis Neuro: doesn't follow commands Psych: confused and semi-comatose state - Constitutional Vitals: Temp Pulse Resp BP Pulse Ox 97.4 F L 90 24 140/78 100 11/27/17 13:04 11/27/17 14:30 11/27/17 14:30 11/27/17 14:30 11/27/17 14:30 General appearance: Present: no acute distress Results - Labs CBC & Chem 7: 11/27/17 04:06 11/27/17 04:06 Labs: Laboratory Last Values WBC 11.3 K/mm3 (4.5-11.0) H 11/27/17 04:06 RBC 3.13 M/mm3 (3.65-5.03) L 11/27/17 04:06 Hgb 8.4 gm/dl (11.8-15.2) L 11/27/17 04:06 Hct 25.8 % (35.5-45.6) L 11/27/17 04:06 MCV 82 fl (84-94) L 11/27/17 04:06 MCH 27 pg (28-32) L 11/27/17 04:06 MCHC 33 % (32-34) 11/27/17 04:06 RDW 17.7 % (13.2-15.2) H 11/27/17 04:06 Plt Count 184 K/mm3 (140-440) 11/27/17 04:06 Lymph % (Auto) 7.4 % (13.4-35.0) L 11/27/17 04:06 [place] % (Auto) 6.9 % (0.0-7.3) 11/27/17 04:06 Eos % (Auto) 1.8 % (0.0-4.3) 11/27/17 04:06 Baso % (Auto) 0.2 % (0.0-1.8) 11/27/17 04:06 Lymph # 0.8 K/mm3 (1.2-5.4) L 11/27/17 04:06 [place] # 0.8 K/mm3 (0.0-0.8) 11/27/17 04:06 Eos # 0.2 K/mm3 (0.0-0.4) 11/27/17 04:06 Baso # 0.0 K/mm3 (0.0-0.1) 11/27/17 04:06 Add Manual Diff Complete 11/24/17 05:42 Total Counted 100 11/24/17 05:42 Seg Neutrophils % 83.7 % (40.0-70.0) H 11/27/17 04:06 Seg Neuts % (Manual) 94.0 % (40.0-70.0) H 11/24/17 05:42 Band Neutrophils % 0 % 11/24/17 05:42 Lymphocytes % (Manual) 3.0 % (13.4-35.0) L 11/24/17 05:42 Reactive Lymphs % (Man) 0 % 11/24/17 05:42 Monocytes % (Manual) 3.0 % (0.0-7.3) 11/24/17 05:42 Eosinophils % (Manual) 0 % (0.0-4.3) 11/24/17 05:42 Basophils % (Manual) 0 % (0.0-1.8) 11/24/17 05:42 Metamyelocytes % 0 % 11/24/17 05:42 Myelocytes % 0 % 11/24/17 05:42 Promyelocytes % 0 % 11/24/17 05:42 Blast Cells % 0 % 11/24/17 05:42 Nucleated RBC % Not Reportable 11/24/17 05:42 Seg Neutrophils # 9.5 K/mm3 (1.8-7.7) H 11/27/17 04:06 Seg Neutrophils # Man 20.2 K/mm3 (1.8-7.7) H 11/24/17 05:42 Band Neutrophils # 0.0 K/mm3 11/24/17 05:42 Lymphocytes # (Manual) 0.6 K/mm3 (1.2-5.4) L 11/24/17 05:42 Abs React Lymphs (Man) 0.0 K/mm3 11/24/17 05:42 Monocytes # (Manual) 0.6 K/mm3 (0.0-0.8) 11/24/17 05:42 Eosinophils # (Manual) 0.0 K/mm3 (0.0-0.4) 11/24/17 05:42 Basophils # (Manual) 0.0 K/mm3 (0.0-0.1) 11/24/17 05:42 Metamyelocytes # 0.0 K/mm3 11/24/17 05:42 Myelocytes # 0.0 K/mm3 11/24/17 05:42 Promyelocytes # 0.0 K/mm3 11/24/17 05:42 Blast Cells # 0.0 K/mm3 11/24/17 05:42 WBC Morphology Not Reportable 11/24/17 05:42 Hypersegmented Neuts Not Reportable 11/24/17 05:42 Hyposegmented Neuts Not Reportable 11/24/17 05:42 Hypogranular Neuts Not Reportable 11/24/17 05:42 Smudge Cells Not Reportable 11/24/17 05:42 Toxic Granulation Not Reportable 11/24/17 05:42 Toxic Vacuolation Not Reportable 11/24/17 05:42 Dohle Bodies Not Reportable 11/24/17 05:42 Pelger-Huet Anomaly Not Reportable 11/24/17 05:42 Evangelina Rods Not Reportable 11/24/17 05:42 Platelet Estimate Appears normal 11/24/17 05:42 Clumped Platelets Not Reportable 11/24/17 05:42 Plt Clumps, EDTA Not Reportable 11/24/17 05:42 Large Platelets Not Reportable 11/24/17 05:42 Giant Platelets Not Reportable 11/24/17 05:42 Platelet Satelliting Not Reportable 11/24/17 05:42 Plt Morphology Comment Not Reportable 11/24/17 05:42 RBC Morphology Not Reportable 11/24/17 05:42 Dimorphic RBCs Not Reportable 11/24/17 05:42 Polychromasia Not Reportable 11/24/17 05:42 Hypochromasia Not Reportable 11/24/17 05:42 Poikilocytosis Not Reportable 11/24/17 05:42 Anisocytosis Few 11/24/17 05:42 Microcytosis Not Reportable 11/24/17 05:42 Macrocytosis Not Reportable 11/24/17 05:42 Spherocytes Not Reportable 11/24/17 05:42 Pappenheimer Bodies Not Reportable 11/24/17 05:42 Sickle Cells Not Reportable 11/24/17 05:42 Target Cells Few 11/24/17 05:42 Tear Drop Cells Not Reportable 11/24/17 05:42 Ovalocytes Not Reportable 11/24/17 05:42 Stomatocytes Few 11/18/17 04:34 Helmet Cells Not Reportable 11/24/17 05:42 [place] Bodies Not Reportable 11/24/17 05:42 [place] Rings Not Reportable 11/24/17 05:42 Lucretia Cells Not Reportable 11/24/17 05:42 Bite Cells Not Reportable 11/24/17 05:42 Crenated Cell Not Reportable 11/24/17 05:42 Elliptocytes Not Reportable 11/24/17 05:42 Acanthocytes (Spur) Not Reportable 11/24/17 05:42 Rouleaux Not Reportable 11/24/17 05:42 Hemoglobin C Crystals Not Reportable 11/24/17 05:42 Schistocytes Not Reportable 11/24/17 05:42 Malaria parasites Not Reportable 11/24/17 05:42 [place] Bodies Not Reportable 11/24/17 05:42 Hem Pathologist Commnt No 11/24/17 05:42 PT 23.6 Sec. (12.2-14.9) H 11/26/17 06:29 INR 1.96 (0.87-1.13) H 11/26/17 06:29 APTT 33.8 Sec. (24.2-36.6) 11/26/17 06:29 POC ABG pH 7.505 (7.35-7.45) H 11/23/17 04:56 POC ABG pCO2 26.3 (35-45) L 11/23/17 04:56 POC ABG pO2 100 (80-105) 11/23/17 04:56 POC ABG HCO3 20.8 11/23/17 04:56 POC ABG Total CO2 22 11/23/17 04:56 POC ABG O2 Sat 98 11/23/17 04:56 POC ABG Base Excess -2 11/23/17 04:56 FiO2 30 % 11/23/17 04:56 Sodium 139 mmol/L (137-145) 11/27/17 04:06 Potassium 4.1 mmol/L (3.6-5.0) 11/27/17 04:06 Chloride 97.9 mmol/L (98-107) L 11/27/17 04:06 Carbon Dioxide 27 mmol/L (22-30) 11/27/17 04:06 Anion Gap 18 mmol/L 11/27/17 04:06 BUN 29 mg/dL (9-20) H 11/27/17 04:06 Creatinine 2.9 mg/dL (0.8-1.5) H 11/27/17 04:06 Estimated GFR 26 ml/min 11/27/17 04:06 BUN/Creatinine Ratio 10 % 11/27/17 04:06 Glucose 100 mg/dL (75-100) 11/27/17 04:06 POC Glucose 101 (70-105) 11/27/17 12:26 Lactic Acid 1.80 mmol/L (0.7-2.0) 11/27/17 04:06 Calcium 8.1 mg/dL (8.4-10.2) L 11/27/17 04:06 Magnesium 2.00 mg/dL (1.7-2.3) 11/24/17 21:53 Total Bilirubin 0.90 mg/dL (0.1-1.2) 11/24/17 21:53 AST 170 units/L (5-40) H 11/24/17 21:53 ALT 179 units/L (7-56) H 11/24/17 21:53 Alkaline Phosphatase 175 units/L (35-129) H 11/24/17 21:53 Total Creatine Kinase 84 units/L (55-170) 11/12/17 20:03 CK-MB (CK-2) < 1.0 ng/mL (0.0-4.0) 11/12/17 20:03 CK-MB (CK-2) Rel Index 1.1 (0-4) 11/12/17 20:03 Troponin T 0.098 ng/mL (0.00-0.029) H 11/12/17 Unknown C-Reactive Protein 25.70 mg/dL (0.00-1.30) H 11/11/17 23:20 NT-Pro-B Natriuret Pep 792.4 pg/mL (0-900) 11/11/17 23:20 Total Protein 5.5 g/dL (6.3-8.2) L 11/24/17 21:53 Albumin 1.8 g/dL (3.9-5) L 11/24/17 21:53 Albumin/Globulin Ratio 0.5 % 11/24/17 21:53 Triglycerides 86 mg/dL (2-149) 11/11/17 23:20 Cholesterol 82 mg/dL (50-199) 11/11/17 23:20 LDL Cholesterol Direct 42 mg/dL (50-130) L 11/11/17 23:20 HDL Cholesterol 24 mg/dL (40-59) L 11/11/17 23:20 Cholesterol/HDL Ratio 3.41 % 11/11/17 23:20 Lipase 30 units/L (13-60) 11/11/17 23:20 Urine Color Nicole (Yellow) 11/11/17 23:09 Urine Turbidity Cloudy (Clear) 11/11/17 23:09 Urine pH 5.0 (5.0-7.0) 11/11/17 23:09 Ur Specific [place] 1.025 (1.003-1.030) 11/11/17 23:09 Urine Protein 100 mg/dl mg/dL (Negative) 11/11/17 23:09 Urine Glucose (UA) 50 mg/dL (Negative) 11/11/17 23:09 Urine Ketones Neg mg/dL (Negative) 11/11/17 23:09 Urine Blood Neg (Negative) 11/11/17 23:09 Urine Nitrite Neg (Negative) 11/11/17 23:09 Urine Bilirubin Neg (Negative) 11/11/17 23:09 Urine Urobilinogen 4.0 mg/dL (<2.0) 11/11/17 23:09 Ur Leukocyte Esterase Neg (Negative) 11/11/17 23:09 Urine WBC (Auto) 5.0 /HPF (0.0-6.0) 11/11/17 23:09 Urine RBC (Auto) 4.0 /HPF (0.0-6.0) 11/11/17 23:09 Urine Bacteria (Auto) 3+ /HPF (Negative) 11/11/17 23:09 Amorphous Crystals 3+ 11/11/17 23:09 Hyaline Casts 76 /LPF 11/11/17 23:09 Urine Mucus 2+ /HPF 11/11/17 23:09 Hepatitis A IgM Ab Non-reactive (NonReactive) 11/22/17 19:45 Hep Bs Antigen Non-reactive (Negative) 11/22/17 19:45 Hep B Core IgM Ab Non-reactive (NonReactive) 11/22/17 19:45 Hepatitis C Antibody Reactive (NonReactive) A 11/22/17 19:45 Blood Type A POSITIVE 11/24/17 08:27 Antibody Screen Negative 11/24/17 08:27 Crossmatch See Detail 11/24/17 08:27
[2017-11-28 05:01] LABS: Calcium 7.9 mg/dL (8.4-10.2)
[2017-11-28] MEDS: ZOSYN/NS 2.25 GM/50ML 2.25 GM/50 ML BAG IV SCH ×3 (07:16→22:29)
[2017-11-28] MEDS: PROTONIX IV SCH ×2 (09:52→22:29)
[2017-11-28] MEDS: SODIUM CHLORIDE FLUSH SYRINGE 10 ML IV SCH ×2 (09:52→22:19)
--- NOTE | 2017-11-28 11:09 | Progress Note ---
Assessment and Plan Assessment and Plan Mr. 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 He had a Carotid doppler done that revealed a right ICA 50-79% stenosis. CTA of the neck revealed 80% stenosis of the right ICA with probable 50% stenosis of the origin of the right common carotid artery. His symptoms were thought to be due to the Carotid artery stenosis which was disheartening since he was on Aspirin and plavix. He was scheduled for right CEA but needed Cardiac clearance. He underwent stress test on 10/05/17 and Teacher Music stated he was stable for non-cardiac history, low to moderate perioperative risk. So, he underwent right carotid enarterectomy on 10/09/17. Following the surgery, he developed recurrent left sided weakness/hemiparesis was taken to OR again on for Open Thrombectomy of Right Internal Carotid Artery and Injection of TPA into the Distal Artery. CT head obtained on 10/12/17 showed massive right cerebral hemisphere acute CVA with midline shift. He was discharged on 11/10/17 to [facility] but returned to ED on 11/12/17 for sob. He was admitted for Aspiration post-obstructive pneumonia with suspected mucus plug and subsequently intubated on admission. ON 11/20/17, patient went for Tracheostomy by Dr. Hughes, ENT. Then on 11/21/17 patient went into shock, most sepsis as WBC went up to 38k; most likely Aspiration pneumonitis, antibiotics restarted. He was on maximum dose of Levophed and Neosynephrine (right femoral line placed 11/21/[address] Celis for vasopressors). Then 11/22/17 (Thursday morning) the Neosynephrine weaned off and Levophed down to 10 mcg, also Dr. Palmer placed a left femoral tunnel cath for Hemodialysis. Today, Levophed has been weaned off. * CTA chest IMPRESSION: There is no thoracic aortic aneurysm or dissection.. There is no pulmonary embolism.. There is complete atelectasis of the left lung causing volume loss and mediastinal shift to the left. This is due to blockage of the left bronchus by the endotracheal tube which is in the right mainstem bronchus. There is no pleural effusion or pneumothorax.. There is pneumoperitoneum and ascites.. Dr. Navarro was notified by telephone at 3:20 a.m. central. * 1v Abd XRAY IMPRESSION: Nasogastric tube ends in the stomach. A PEG tube is identified. Bowel gas pattern is nonobstructive. -Acute on chronic blood loss anemia w/Coffee-ground material from peg tube: GI is following, treat with ppi iv bid, EGD done 11/18/17 showed 8 mm cratered, 10 mm linear ulcer proximal lesser curvature with erythema but no other bleeding stigmata, gastritis and 4-5 cm hiatal hernia 2 UNITS PRBC TRANSFUSED. MONITOR H/H -Concerning for intrabdominal abscess: Vascular drains placed, WBC and renal function improving. Disucssed with ID following. Cultures growing GNR on surgical culture -Acute hypoxic respiratory failure due to Pneumonia on MV>96 hours s/p Tracheostomy 11/20/17: continue MV, daily weaning attempt -Leukocyotosis with Sepsis with transient septic shock, poa: shock resolved, continue abx, ID is following -Aspiration pneumonia, with mucus plugging/post obstructive pna poa: Top Knitter is following, following sunction protocols -Acute encephalopathy: treat supportively. -Hypernatremia: treat with free water, monitor bmp closely -Hypokalemia: replace and monitor closely -ARF vasomotor nephropathy, poa: IV fluids, monitor bmp closely -Dysphagia with aspiration: s/p peg tube - No family present at this time. -Advance care planning: full code -Poor prognosis. Note copied in order to maintain accurate continuation in this complex case. Changes made to indicate current events and management. The high probability of a clinically significant, sudden or life threatening deterioration of the [HEMATOLOGY, PULMONARY] system(s) required my full and direct attention, intervention and personal management. The aggregate critical care time was [45] minutes. This time is in addition to time spent performing reported procedures but includes the following: [X] Data Review and interpretation [X] Patient assessment and monitoring of vital signs [X] Documentation [X] Medication orders and management Subjective Date of service: 11/28/17 Principal diagnosis: Acute hypoxic respiratory failure due to Pneumonia on MV> 96 hours s/p Trach Interval history: Same condition.No interval change. Objective - Constitutional Vitals: Vital Signs - 12hr 11/27/17 11/27/17 11/28/17 23:30 23:45 00:00 Temperature 98.1 F Pulse Rate 97 H 90 101 H Pulse Rate [ Right From Monitor] Respiratory 15 28 H 33 H Rate Blood Pressure 122/61 137/69 O2 Sat by Pulse 100 99 Oximetry O2 Sat by Pulse 99 Oximetry [ Assessment] 11/28/17 11/28/17 11/28/17 00:30 01:00 01:30 Temperature Pulse Rate 99 H 107 H 91 H Pulse Rate [ Right From Monitor] Respiratory 29 H 33 H 30 H Rate Blood Pressure 137/69 137/69 152/73 O2 Sat by Pulse Oximetry O2 Sat by Pulse Oximetry [ Assessment] 11/28/17 11/28/17 11/28/17 02:00 02:30 02:50 Temperature Pulse Rate 90 91 H 90 Pulse Rate [ Right From Monitor] Respiratory 26 H 27 H 28 H Rate Blood Pressure 127/60 152/73 O2 Sat by Pulse 100 Oximetry O2 Sat by Pulse Oximetry [ Assessment] 11/28/17 11/28/17 11/28/17 03:00 03:30 04:00 Temperature 98.2 F Pulse Rate 98 H 103 H 105 H Pulse Rate [ Right From Monitor] Respiratory 31 H 29 H 15 Rate Blood Pressure 139/77 127/60 153/82 O2 Sat by Pulse 100 Oximetry O2 Sat by Pulse Oximetry [ Assessment] 11/28/17 11/28/17 11/28/17 04:30 05:00 05:31 Temperature Pulse Rate 107 H 107 H Pulse Rate [ Right From Monitor] Respiratory 25 H 22 Rate Blood Pressure 153/82 129/79 153/82 O2 Sat by Pulse 100 100 100 Oximetry O2 Sat by Pulse Oximetry [ Assessment] 11/28/17 11/28/17 11/28/17 06:00 06:31 07:00 Temperature Pulse Rate 98 H 92 H 89 Pulse Rate [ Right From Monitor] Respiratory 15 14 19 Rate Blood Pressure 118/65 118/65 125/68 O2 Sat by Pulse 100 100 100 Oximetry O2 Sat by Pulse Oximetry [ Assessment] 11/28/17 11/28/17 11/28/17 07:31 07:33 07:47 Temperature Pulse Rate 88 93 H Pulse Rate [ Right From Monitor] Respiratory 15 Rate Blood Pressure 125/68 125/68 O2 Sat by Pulse 100 100 Oximetry O2 Sat by Pulse 100 Oximetry [ Assessment] 11/28/17 11/28/17 11/28/17 07:49 08:00 08:31 Temperature 98.6 F Pulse Rate 88 80 Pulse Rate [ 84 Right From Monitor] Respiratory 26 H 22 Rate Blood Pressure 131/72 125/68 O2 Sat by Pulse 100 100 100 Oximetry O2 Sat by Pulse Oximetry [ Assessment] 11/28/17 11/28/17 11/28/17 09:00 09:31 10:00 Temperature Pulse Rate 94 H 100 H 87 Pulse Rate [ Right From Monitor] Respiratory 23 25 H 25 H Rate Blood Pressure 128/70 128/70 129/68 O2 Sat by Pulse 100 99 100 Oximetry O2 Sat by Pulse Oximetry [ Assessment] General appearance: Present: no acute distress, well-nourished - EENT Eyes: PERRL, EOM intact ENT: hearing intact, clear oral mucosa Ears: bilateral: normal - Neck Neck: supple, normal ROM - Respiratory Respiratory effort: normal Respiratory: bilateral: CTA - Breasts Breasts: normal - Cardiovascular Rhythm: regular Heart Sounds: Present: S1 & S2. Absent: gallop, rub Extremities: pulses intact, No edema, normal color, Full ROM - Gastrointestinal General gastrointestinal: Present: soft, non-tender, non-distended, normal bowel sounds - Genitourinary Male genitourinary: normal - Integumentary Integumentary: clear, warm, dry - Musculoskeletal Musculoskeletal: 1, strength equal bilaterally - Neurologic Neurologic: moves all extremities - Psychiatric Psychiatric: memory intact, appropriate mood/affect, intact judgment & insight - Labs CBC & Chem 7: 11/27/17 04:06 11/28/17 03:50 Labs: Abnormal lab results 11/27/17 11/28/17 11/28/17 Range/Units 18:11 00:16 03:50 BUN 39 H (9-20) mg/dL Creatinine 4.1 H (0.8-1.5) mg/dL Glucose 108 H (75-100) mg/dL POC Glucose 110 H 124 H (70-105) Calcium 7.9 L (8.4-10.2) mg/dL 11/28/17 Range/Units 05:03 BUN (9-20) mg/dL Creatinine (0.8-1.5) mg/dL Glucose (75-100) mg/dL POC Glucose 134 H (70-105) Calcium (8.4-10.2) mg/dL
--- NOTE | 2017-11-28 12:00 | Progress Note ---
Assessment and Plan Assessment : * Acute kidney injury. Most likely ATN . patient has been initiated on renal replacement therapy on 11/23/17 * Respiratory failure * Metabolic acidosis * Hypokalemia * Severe anemia * Carotid artery disease . s/p carotid endarterectomy * Hypocalcemia Recommendations * No evidence of renal recovery . * Patient is scheduled for hemodialysis for today * Hypokalemia and hypocalcemia much improved * Acidosis has been corrected . Off bicarbonate * easley catheter has been removed . * Prognosis remains very poor * Assess need for dialysis on daily basis . Subjective Date of service: 11/28/17 Principal diagnosis: Acute hypoxic respiratory failure due to Pneumonia on MV> 96 hours s/p Trach Interval history: patient remains on the ventilator via trache . On 30% FiO2 . Unresponsive . Remains off pressors Objective - Vital Signs Vital signs: Vital Signs - 12hr 11/28/17 11/28/17 11/28/17 00:00 00:30 01:00 Temperature 98.1 F Pulse Rate 101 H 99 H 107 H Pulse Rate [ Right From Monitor] Respiratory 33 H 29 H 33 H Rate Blood Pressure 137/69 137/69 137/69 O2 Sat by Pulse 99 Oximetry O2 Sat by Pulse 99 Oximetry [ Assessment] 11/28/17 11/28/17 11/28/17 01:30 02:00 02:30 Temperature Pulse Rate 91 H 90 91 H Pulse Rate [ Right From Monitor] Respiratory 30 H 26 H 27 H Rate Blood Pressure 152/73 127/60 152/73 O2 Sat by Pulse Oximetry O2 Sat by Pulse Oximetry [ Assessment] 11/28/17 11/28/17 11/28/17 02:50 03:00 03:30 Temperature Pulse Rate 90 98 H 103 H Pulse Rate [ Right From Monitor] Respiratory 28 H 31 H 29 H Rate Blood Pressure 139/77 127/60 O2 Sat by Pulse 100 Oximetry O2 Sat by Pulse Oximetry [ Assessment] 11/28/17 11/28/17 11/28/17 04:00 04:30 05:00 Temperature 98.2 F Pulse Rate 105 H 107 H 107 H Pulse Rate [ Right From Monitor] Respiratory 15 25 H 22 Rate Blood Pressure 153/82 153/82 129/79 O2 Sat by Pulse 100 100 100 Oximetry O2 Sat by Pulse Oximetry [ Assessment] 11/28/17 11/28/17 11/28/17 05:31 06:00 06:31 Temperature Pulse Rate 98 H 92 H Pulse Rate [ Right From Monitor] Respiratory 15 14 Rate Blood Pressure 153/82 118/65 118/65 O2 Sat by Pulse 100 100 100 Oximetry O2 Sat by Pulse Oximetry [ Assessment] 11/28/17 11/28/17 11/28/17 07:00 07:31 07:33 Temperature Pulse Rate 89 88 93 H Pulse Rate [ Right From Monitor] Respiratory 19 15 Rate Blood Pressure 125/68 125/68 125/68 O2 Sat by Pulse 100 100 100 Oximetry O2 Sat by Pulse Oximetry [ Assessment] 11/28/17 11/28/17 11/28/17 07:47 07:49 08:00 Temperature 98.6 F Pulse Rate 88 Pulse Rate [ 84 Right From Monitor] Respiratory 26 H Rate Blood Pressure 131/72 O2 Sat by Pulse 100 100 Oximetry O2 Sat by Pulse 100 Oximetry [ Assessment] 11/28/17 11/28/17 11/28/17 08:31 09:00 09:31 Temperature Pulse Rate 80 94 H 100 H Pulse Rate [ Right From Monitor] Respiratory 22 23 25 H Rate Blood Pressure 125/68 128/70 128/70 O2 Sat by Pulse 100 100 99 Oximetry O2 Sat by Pulse Oximetry [ Assessment] 11/28/17 10:00 Temperature Pulse Rate 87 Pulse Rate [ Right From Monitor] Respiratory 25 H Rate Blood Pressure 129/68 O2 Sat by Pulse 100 Oximetry O2 Sat by Pulse Oximetry [ Assessment] - General Appearance General appearance: well-developed, well-nourished, appears stated age, intubated EENT: PERRL, mucous membranes moist Neck: no JVD, no thyromegaly, no carotid bruit, supple Respiratory: Present: Clear to Ascultation Cardiology: regular, normal heart rate Gastrointestinal: normoactive bowel sounds, other (abdominal drain noted ) Integumentary: other (1+ edema . Femoral vascath in place ) - Lab 11/27/17 04:06 11/28/17 03:50 Most recent lab results Calcium 7.9 mg/dL (8.4-10.2) L 11/28/17 03:50 Magnesium 2.00 mg/dL (1.7-2.3) 11/24/17 21:53
--- NOTE | 2017-11-28 12:03 | Progress Note ---
Assessment and Plan Imp: 1. CVA 2. Hemiparesis 3. Aspiration pneumonitis related to above 4. Sepsis 2/2 peritonitis/PEG mal-position, better 5. DARYA 6. s/p Trach/PEG Rec: 1. Volume removal with HD 2. Cont. Zosyn given CT a/p results; lactate and WBC are better after abdominal drainage; f/u cultures; ID re-evaluation is pending; add Diflucan to cover the Heather; surgery following 3. PEG is out; NGT feeds okay per surgery, now tolerating at 10mL/hour -> titrate up slowly 4. SCDs; GI PPx 5. PSV trials -> Tpiece; trach will need to be permanent for secretion clearance ; ENT will downsize once off ventilator, see notes 6. Monitor H/H 7. Insurance denies LTAC coverage Long-term prognosis poor; no family present Subjective Date of service: 11/28/17 Principal diagnosis: Acute hypoxic respiratory failure due to Pneumonia on MV> 96 hours s/p Trach Interval history: Off sedation. Arouses. Moves RUE. Off pressors. HD done yesterday. Pigtail drainage catheters in place x 3, with the old PEG tube site drain still draining cloudy/fluid, other 2 drains clear yellow. Active Medications Acetaminophen (Tylenol) 650 mg LA Q4H PRN PRN Reason: Pain MILD(1-3)/Fever >100.5/CABELLO Last Admin: 11/22/17 09:07 Dose: 650 mg Lipase/Protease/Amylase (Pancreaze Dr 10,500 Unit) 1 each FEEDTUBE PRN PRN PRN Reason: For Clogged Feeding Tube Fentanyl Citrate (Fentanyl Drip Premix) 2,000 mcg in 100 mls @ 3.969 mls/hr IV TITR [facility]IRIS; Protocol Last Titration: 11/12/17 04:07 Dose: 5 mcg/kg/hr, 19.845 mls/hr Propofol (Diprivan 10 Mg/Ml) 1,000 mg in 100 mls @ 2.381 mls/hr IV TITR [facility]IS; Protocol Last Titration: 11/17/17 19:32 Dose: 10 mcg/kg/min, 4.763 mls/hr Norepinephrine 8 mg/ Sodium (Chloride) 250 mls @ 3.75 mls/hr IV TITR [facility]IRIS; Protocol Last Titration: 11/23/17 04:00 Dose: 0 mcg/min, 0 mls/hr Phenylephrine HCl 100 mg/ (Sodium Chloride) 100 mls @ 3 mls/hr IV TITR [facility]IS; Protocol Last Titration: 11/22/17 00:10 Dose: 0 mcg/min, 0 mls/hr Piperacillin Sod/Tazobactam Sod (Zosyn/Ns 2.25 Gm/50ml) 2.25 gm in 50 mls @ 100 mls/hr IV Q8HR OSIRIS; Protocol Stop: 11/28/17 23:59 Last Admin: 11/28/17 07:16 Dose: 100 mls/hr Sodium Chloride (Nacl 0.9%) 100 mls @ 999 mls/hr IV TIM PRN PRN Reason: Hypotension Sodium Chloride (Nacl 0.9%) 100 mls @ 999 mls/hr IV TIM PRN PRN Reason: Hypotension Fluconazole (Diflucan) 200 mg in 100 mls @ 100 mls/hr IV Q24HR [facility]IRIS; Protocol Ondansetron HCl (Zofran) 4 mg IV Q8H PRN PRN Reason: Nausea And Vomiting Pantoprazole Sodium (Protonix) 40 mg IV BID [facility] Last Admin: 11/28/17 09:52 Dose: 40 mg Sodium Chloride (Sodium Chloride Flush Syringe 10 Ml) 10 ml IV BID [facility] Last Admin: 11/28/17 09:52 Dose: 10 ml Sodium Chloride (Sodium Chloride Flush Syringe 10 Ml) 10 ml IV PRN PRN PRN Reason: LINE FLUSH Objective Vital Signs - 12hr 11/28/17 11/28/17 11/28/17 00:30 01:00 01:30 Temperature Pulse Rate 99 H 107 H 91 H Pulse Rate [ Right From Monitor] Respiratory 29 H 33 H 30 H Rate Blood Pressure 137/69 137/69 152/73 O2 Sat by Pulse Oximetry O2 Sat by Pulse Oximetry [ Assessment] 11/28/17 11/28/17 11/28/17 02:00 02:30 02:50 Temperature Pulse Rate 90 91 H 90 Pulse Rate [ Right From Monitor] Respiratory 26 H 27 H 28 H Rate Blood Pressure 127/60 152/73 O2 Sat by Pulse 100 Oximetry O2 Sat by Pulse Oximetry [ Assessment] 11/28/17 11/28/17 11/28/17 03:00 03:30 04:00 Temperature 98.2 F Pulse Rate 98 H 103 H 105 H Pulse Rate [ Right From Monitor] Respiratory 31 H 29 H 15 Rate Blood Pressure 139/77 127/60 153/82 O2 Sat by Pulse 100 Oximetry O2 Sat by Pulse Oximetry [ Assessment] 11/28/17 11/28/17 11/28/17 04:30 05:00 05:31 Temperature Pulse Rate 107 H 107 H Pulse Rate [ Right From Monitor] Respiratory 25 H 22 Rate Blood Pressure 153/82 129/79 153/82 O2 Sat by Pulse 100 100 100 Oximetry O2 Sat by Pulse Oximetry [ Assessment] 11/28/17 11/28/17 11/28/17 06:00 06:31 07:00 Temperature Pulse Rate 98 H 92 H 89 Pulse Rate [ Right From Monitor] Respiratory 15 14 19 Rate Blood Pressure 118/65 118/65 125/68 O2 Sat by Pulse 100 100 100 Oximetry O2 Sat by Pulse Oximetry [ Assessment] 11/28/17 11/28/17 11/28/17 07:31 07:33 07:47 Temperature Pulse Rate 88 93 H Pulse Rate [ Right From Monitor] Respiratory 15 Rate Blood Pressure 125/68 125/68 O2 Sat by Pulse 100 100 Oximetry O2 Sat by Pulse 100 Oximetry [ Assessment] 11/28/17 11/28/17 11/28/17 07:49 08:00 08:31 Temperature 98.6 F Pulse Rate 88 80 Pulse Rate [ 84 Right From Monitor] Respiratory 26 H 22 Rate Blood Pressure 131/72 125/68 O2 Sat by Pulse 100 100 100 Oximetry O2 Sat by Pulse Oximetry [ Assessment] 11/28/17 11/28/17 11/28/17 09:00 09:31 10:00 Temperature Pulse Rate 94 H 100 H 87 Pulse Rate [ Right From Monitor] Respiratory 23 25 H 25 H Rate Blood Pressure 128/70 128/70 129/68 O2 Sat by Pulse 100 99 100 Oximetry O2 Sat by Pulse Oximetry [ Assessment] 11/28/17 11/28/17 11/28/17 10:15 10:31 11:00 Temperature Pulse Rate 93 H 107 H Pulse Rate [ 96 H Right From Monitor] Respiratory 22 27 H Rate Blood Pressure 129/68 144/76 O2 Sat by Pulse 97 99 97 Oximetry O2 Sat by Pulse Oximetry [ Assessment] 11/28/17 11:31 Temperature Pulse Rate 95 H Pulse Rate [ Right From Monitor] Respiratory 22 Rate Blood Pressure 144/76 O2 Sat by Pulse 98 Oximetry O2 Sat by Pulse Oximetry [ Assessment] Constitutional: other (s/p trach, critically ill) Eyes: non-icteric ENT: oropharynx moist Neck: supple Effort: normal Ascultation: Bilateral: other (coarse BS bilaterally) Cardiovascular: regular rate and rhythm (no mrg) Gastrointestinal: normoactive bowel sounds, soft, non-tender, other (distended but better after drainage) Integumentary: normal Extremities: no cyanosis, pink and warm, anasarca Neurologic: other (L hemiparesis) Psychiatric: other (unable to assess) CBC and BMP: 11/27/17 04:06 11/28/17 03:50 ABG, PT/INR, D-dimer: ABG POC ABG pH 7.505 (7.35-7.45) H 11/23/17 04:56 POC ABG pCO2 26.3 (35-45) L 11/23/17 04:56 POC ABG pO2 100 (80-105) 11/23/17 04:56 POC ABG HCO3 20.8 11/23/17 04:56 POC ABG Total CO2 22 11/23/17 04:56 POC ABG O2 Sat 98 11/23/17 04:56 PT/INR, D-dimer PT 23.6 Sec. (12.2-14.9) H 11/26/17 06:29 INR 1.96 (0.87-1.13) H 11/26/17 06:29 Abnormal lab findings: Abnormal Labs 11/11/17 11/11/17 11/11/17 23:18 23:20 23:20 WBC RBC Hgb 10.4 L Hct 32.6 L D MCV MCH 27 L MCHC RDW 17.4 H Plt Count 105 L Lymph % (Auto) [place] % (Auto) Lymph # [place] # Seg Neutrophils % Seg Neuts % (Manual) Lymphocytes % (Manual) 8.0 L Monocytes % (Manual) Nucleated RBC % 1.0 H Seg Neutrophils # Seg Neutrophils # Man Lymphocytes # (Manual) 0.7 L Monocytes # (Manual) PT INR POC ABG pH 7.550 H POC ABG pCO2 31.6 L POC ABG pO2 Sodium 146 H Potassium Chloride Carbon Dioxide BUN 26 H Creatinine 1.7 H D Glucose 133 H POC Glucose Lactic Acid Calcium Magnesium AST ALT Alkaline Phosphatase Troponin T 0.117 H* C-Reactive Protein Total Protein Albumin 2.5 L LDL Cholesterol Direct 42 L HDL Cholesterol 24 L Hepatitis C Antibody Crossmatch 11/11/17 11/12/17 11/12/17 23:20 00:23 00:23 WBC RBC Hgb Hct MCV MCH MCHC RDW Plt Count Lymph % (Auto) [place] % (Auto) Lymph # [place] # Seg Neutrophils % Seg Neuts % (Manual) Lymphocytes % (Manual) Monocytes % (Manual) Nucleated RBC % Seg Neutrophils # Seg Neutrophils # Man Lymphocytes # (Manual) Monocytes # (Manual) PT 16.7 H INR 1.28 H POC ABG pH POC ABG pCO2 POC ABG pO2 Sodium Potassium Chloride Carbon Dioxide BUN Creatinine Glucose POC Glucose Lactic Acid 3.20 H* Calcium Magnesium AST ALT Alkaline Phosphatase Troponin T C-Reactive Protein 25.70 H Total Protein Albumin LDL Cholesterol Direct HDL Cholesterol Hepatitis C Antibody Crossmatch 11/12/17 11/12/17 11/12/17 00:46 01:27 01:27 WBC RBC Hgb Hct MCV MCH MCHC RDW Plt Count Lymph % (Auto) [place] % (Auto) Lymph # [place] # Seg Neutrophils % Seg Neuts % (Manual) Lymphocytes % (Manual) Monocytes % (Manual) Nucleated RBC % Seg Neutrophils # Seg Neutrophils # Man Lymphocytes # (Manual) Monocytes # (Manual) PT INR POC ABG pH 7.495 H POC ABG pCO2 32.0 L POC ABG pO2 64 L Sodium Potassium Chloride Carbon Dioxide BUN Creatinine Glucose POC Glucose Lactic Acid 3.70 H* Calcium Magnesium AST ALT Alkaline Phosphatase Troponin T 0.096 H C-Reactive Protein Total Protein Albumin LDL Cholesterol Direct HDL Cholesterol Hepatitis C Antibody Crossmatch 11/12/17 11/12/17 11/12/17 03:21 04:50 06:27 WBC RBC Hgb Hct MCV MCH MCHC RDW Plt Count Lymph % (Auto) [place] % (Auto) Lymph # [place] # Seg Neutrophils % Seg Neuts % (Manual) Lymphocytes % (Manual) Monocytes % (Manual) Nucleated RBC % Seg Neutrophils # Seg Neutrophils # Man Lymphocytes # (Manual) Monocytes # (Manual) PT INR POC ABG pH POC ABG pCO2 POC ABG pO2 109 H Sodium Potassium Chloride Carbon Dioxide BUN Creatinine Glucose POC Glucose Lactic Acid 3.80 H* 2.20 H* Calcium Magnesium AST ALT Alkaline Phosphatase Troponin T C-Reactive Protein Total Protein Albumin LDL Cholesterol Direct HDL Cholesterol Hepatitis C Antibody Crossmatch 11/12/17 11/12/17 11/12/17 09:24 09:24 09:24 WBC RBC Hgb 10.4 L Hct 33.4 L MCV MCH MCHC RDW Plt Count Lymph % (Auto) [place] % (Auto) Lymph # [place] # Seg Neutrophils % Seg Neuts % (Manual) Lymphocytes % (Manual) Monocytes % (Manual) Nucleated RBC % Seg Neutrophils # Seg Neutrophils # Man Lymphocytes # (Manual) Monocytes # (Manual) PT INR POC ABG pH POC ABG pCO2 POC ABG pO2 Sodium Potassium Chloride Carbon Dioxide BUN Creatinine Glucose POC Glucose Lactic Acid 2.90 H* Calcium Magnesium AST ALT Alkaline Phosphatase Troponin T 0.091 H C-Reactive Protein Total Protein Albumin LDL Cholesterol Direct HDL Cholesterol Hepatitis C Antibody Crossmatch 11/12/17 11/12/17 11/12/17 12:56 20:03 Unknown WBC RBC Hgb Hct MCV MCH MCHC RDW Plt Count Lymph % (Auto) [place] % (Auto) Lymph # [place] # Seg Neutrophils % Seg Neuts % (Manual) Lymphocytes % (Manual) Monocytes % (Manual) Nucleated RBC % Seg Neutrophils # Seg Neutrophils # Man Lymphocytes # (Manual) Monocytes # (Manual) PT INR POC ABG pH POC ABG pCO2 POC ABG pO2 Sodium Potassium Chloride Carbon Dioxide BUN Creatinine Glucose POC Glucose Lactic Acid 3.60 H* Calcium Magnesium AST ALT Alkaline Phosphatase Troponin T 0.102 H* 0.156 H* D C-Reactive Protein Total Protein Albumin LDL Cholesterol Direct HDL Cholesterol Hepatitis C Antibody Crossmatch 11/12/17 11/13/17 11/13/17 Unknown 04:50 04:50 WBC 12.2 H RBC 3.51 L Hgb 9.3 L Hct 30.1 L MCV MCH 26 L MCHC 31 L RDW 18.0 H Plt Count 128 L Lymph % (Auto) 8.6 L [place] % (Auto) 11.1 H Lymph # 1.1 L [place] # 1.4 H Seg Neutrophils % 80.1 H Seg Neuts % (Manual) Lymphocytes % (Manual) Monocytes % (Manual) Nucleated RBC % Seg Neutrophils # 9.8 H Seg Neutrophils # Man Lymphocytes # (Manual) Monocytes # (Manual) PT INR POC ABG pH POC ABG pCO2 POC ABG pO2 Sodium 149 H Potassium 5.1 H Chloride 114.4 H Carbon Dioxide 18 L BUN 52 H Creatinine 3.3 H D Glucose 129 H POC Glucose Lactic Acid Calcium 7.9 L Magnesium AST ALT Alkaline Phosphatase Troponin T 0.098 H C-Reactive Protein Total Protein Albumin LDL Cholesterol Direct HDL Cholesterol Hepatitis C Antibody Crossmatch 11/13/17 11/13/17 11/14/17 04:51 09:34 04:21 WBC RBC Hgb Hct MCV MCH MCHC RDW Plt Count Lymph % (Auto) [place] % (Auto) Lymph # [place] # Seg Neutrophils % Seg Neuts % (Manual) Lymphocytes % (Manual) Monocytes % (Manual) Nucleated RBC % Seg Neutrophils # Seg Neutrophils # Man Lymphocytes # (Manual) Monocytes # (Manual) PT INR POC ABG pH POC ABG pCO2 30.1 L 29.8 L POC ABG pO2 135 H Sodium Potassium Chloride Carbon Dioxide BUN Creatinine Glucose POC Glucose Lactic Acid 2.10 H* Calcium Magnesium AST ALT Alkaline Phosphatase Troponin T C-Reactive Protein Total Protein Albumin LDL Cholesterol Direct HDL Cholesterol Hepatitis C Antibody Crossmatch 11/15/17 11/15/17 11/16/17 04:52 15:50 05:17 WBC RBC Hgb Hct MCV MCH MCHC RDW Plt Count Lymph % (Auto) [place] % (Auto) Lymph # [place] # Seg Neutrophils % Seg Neuts % (Manual) Lymphocytes % (Manual) Monocytes % (Manual) Nucleated RBC % Seg Neutrophils # Seg Neutrophils # Man Lymphocytes # (Manual) Monocytes # (Manual) PT INR POC ABG pH POC ABG pCO2 29.5 L 31.5 L POC ABG pO2 115 H 122 H Sodium 154 H Potassium Chloride 117.9 H Carbon Dioxide 19 L BUN 87 H Creatinine 4.1 H Glucose POC Glucose Lactic Acid Calcium 8.1 L Magnesium AST ALT Alkaline Phosphatase Troponin T C-Reactive Protein Total Protein Albumin LDL Cholesterol Direct HDL Cholesterol Hepatitis C Antibody Crossmatch 11/16/17 11/17/17 11/17/17 16:37 04:07 10:00 WBC 14.7 H RBC 3.23 L Hgb 8.3 L Hct 28.1 L MCV MCH 26 L MCHC 30 L RDW 18.8 H Plt Count Lymph % (Auto) [place] % (Auto) Lymph # [place] # Seg Neutrophils % Seg Neuts % (Manual) 75 H Lymphocytes % (Manual) 8.0 L Monocytes % (Manual) Nucleated RBC % 1.0 H Seg Neutrophils # Seg Neutrophils # Man 11.0 H Lymphocytes # (Manual) Monocytes # (Manual) 0.9 H PT INR POC ABG pH POC ABG pCO2 POC ABG pO2 Sodium 153 H 155 H Potassium Chloride 117.3 H 119.4 H Carbon Dioxide 19 L 20 L BUN 90 H 89 H Creatinine 3.9 H 3.6 H Glucose 111 H 115 H POC Glucose Lactic Acid Calcium 8.1 L 8.0 L Magnesium AST ALT Alkaline Phosphatase Troponin T C-Reactive Protein Total Protein Albumin LDL Cholesterol Direct HDL Cholesterol Hepatitis C Antibody Crossmatch 11/18/17 11/18/17 11/18/17 04:34 04:34 04:34 WBC 15.5 H RBC 3.13 L Hgb 8.1 L Hct 26.3 L MCV MCH 26 L MCHC 31 L RDW 18.6 H Plt Count Lymph % (Auto) [place] % (Auto) Lymph # [place] # Seg Neutrophils % Seg Neuts % (Manual) 81.0 H Lymphocytes % (Manual) 7.0 L Monocytes % (Manual) Nucleated RBC % 1.0 H Seg Neutrophils # Seg Neutrophils # Man 12.6 H Lymphocytes # (Manual) 1.1 L Monocytes # (Manual) PT 16.7 H INR 1.30 H POC ABG pH POC ABG pCO2 POC ABG pO2 Sodium 155 H Potassium 3.2 L Chloride 121.0 H Carbon Dioxide 20 L BUN 74 H Creatinine 2.9 H Glucose 126 H POC Glucose Lactic Acid Calcium 7.9 L Magnesium AST ALT Alkaline Phosphatase Troponin T C-Reactive Protein Total Protein Albumin LDL Cholesterol Direct HDL Cholesterol Hepatitis C Antibody Crossmatch 11/19/17 11/19/17 11/20/17 04:44 04:44 00:38 WBC 19.0 H 22.2 H RBC 3.20 L 3.17 L Hgb 8.4 L 7.9 L Hct 27.9 L 26.4 L MCV 83 L MCH 26 L 25 L MCHC 30 L 30 L RDW 19.1 H 18.9 H Plt Count Lymph % (Auto) [place] % (Auto) Lymph # [place] # Seg Neutrophils % Seg Neuts % (Manual) 83.0 H Lymphocytes % (Manual) 3.0 L Monocytes % (Manual) 9.0 H Nucleated RBC % Seg Neutrophils # Seg Neutrophils # Man 18.4 H Lymphocytes # (Manual) 0.7 L Monocytes # (Manual) 2.0 H PT INR POC ABG pH POC ABG pCO2 POC ABG pO2 Sodium 152 H Potassium Chloride 117.1 H Carbon Dioxide 17 L BUN 66 H Creatinine 2.8 H Glucose 119 H POC Glucose Lactic Acid Calcium 7.8 L Magnesium 2.70 H AST ALT Alkaline Phosphatase Troponin T C-Reactive Protein Total Protein Albumin LDL Cholesterol Direct HDL Cholesterol Hepatitis C Antibody Crossmatch 11/20/17 11/20/17 11/20/17 03:29 04:48 13:38 WBC RBC Hgb Hct MCV MCH MCHC RDW Plt Count Lymph % (Auto) [place] % (Auto) Lymph # [place] # Seg Neutrophils % Seg Neuts % (Manual) Lymphocytes % (Manual) Monocytes % (Manual) Nucleated RBC % Seg Neutrophils # Seg Neutrophils # Man Lymphocytes # (Manual) Monocytes # (Manual) PT INR POC ABG pH POC ABG pCO2 29.4 L POC ABG pO2 Sodium 148 H Potassium 3.4 L Chloride 113.7 H Carbon Dioxide 18 L BUN 59 H Creatinine 2.7 H Glucose 113 H POC Glucose 128 H Lactic Acid Calcium 7.8 L Magnesium AST ALT Alkaline Phosphatase Troponin T C-Reactive Protein Total Protein Albumin LDL Cholesterol Direct HDL Cholesterol Hepatitis C Antibody Crossmatch 11/20/17 11/20/17 11/21/17 17:38 23:40 00:13 WBC RBC Hgb 8.4 L Hct 28.0 L MCV MCH MCHC RDW Plt Count Lymph % (Auto) [place] % (Auto) Lymph # [place] # Seg Neutrophils % Seg Neuts % (Manual) Lymphocytes % (Manual) Monocytes % (Manual) Nucleated RBC % Seg Neutrophils # Seg Neutrophils # Man Lymphocytes # (Manual) Monocytes # (Manual) PT INR POC ABG pH POC ABG pCO2 POC ABG pO2 Sodium Potassium Chloride Carbon Dioxide BUN Creatinine Glucose POC Glucose 115 H 145 H Lactic Acid Calcium Magnesium AST ALT Alkaline Phosphatase Troponin T C-Reactive Protein Total Protein Albumin LDL Cholesterol Direct HDL Cholesterol Hepatitis C Antibody Crossmatch 11/21/17 11/21/17 11/21/17 04:30 04:30 04:58 WBC 21.0 H RBC Hgb 9.6 L Hct 32.7 L MCV MCH 25 L MCHC 29 L RDW 19.7 H Plt Count 746 H Lymph % (Auto) [place] % (Auto) Lymph # [place] # Seg Neutrophils % Seg Neuts % (Manual) Lymphocytes % (Manual) Monocytes % (Manual) Nucleated RBC % Seg Neutrophils # Seg Neutrophils # Man Lymphocytes # (Manual) Monocytes # (Manual) PT INR POC ABG pH POC ABG pCO2 POC ABG pO2 Sodium Potassium Chloride 109.4 H Carbon Dioxide 14 L BUN 59 H Creatinine 3.0 H Glucose 137 H POC Glucose 132 H Lactic Acid Calcium 7.6 L Magnesium AST ALT Alkaline Phosphatase Troponin T C-Reactive Protein Total Protein Albumin LDL Cholesterol Direct HDL Cholesterol Hepatitis C Antibody Crossmatch 11/21/17 11/21/17 11/21/17 06:30 13:43 14:17 WBC 38.2 H RBC Hgb 9.0 L Hct 32.3 L MCV MCH 25 L MCHC 28 L RDW 20.0 H Plt Count 766 H Lymph % (Auto) [place] % (Auto) Lymph # [place] # Seg Neutrophils % Seg Neuts % (Manual) 85.0 H Lymphocytes % (Manual) 1.0 L Monocytes % (Manual) Nucleated RBC % 2.0 H Seg Neutrophils # Seg Neutrophils # Man 32.5 H Lymphocytes # (Manual) 0.4 L Monocytes # (Manual) 2.3 H PT INR POC ABG pH POC ABG pCO2 18.6 L POC ABG pO2 121 H Sodium 146 H Potassium Chloride 110.9 H Carbon Dioxide 11 L BUN 62 H Creatinine 4.0 H Glucose 64 L POC Glucose Lactic Acid Calcium 7.6 L Magnesium AST ALT Alkaline Phosphatase Troponin T C-Reactive Protein Total Protein Albumin LDL Cholesterol Direct HDL Cholesterol Hepatitis C Antibody Crossmatch 11/21/17 11/21/17 11/22/17 14:17 19:09 00:05 WBC RBC Hgb Hct MCV MCH MCHC RDW Plt Count Lymph % (Auto) [place] % (Auto) Lymph # [place] # Seg Neutrophils % Seg Neuts % (Manual) Lymphocytes % (Manual) Monocytes % (Manual) Nucleated RBC % Seg Neutrophils # Seg Neutrophils # Man Lymphocytes # (Manual) Monocytes # (Manual) PT INR POC ABG pH POC ABG pCO2 20.0 L POC ABG pO2 Sodium Potassium Chloride Carbon Dioxide BUN Creatinine Glucose POC Glucose 127 H Lactic Acid 7.70 H* Calcium Magnesium AST ALT Alkaline Phosphatase Troponin T C-Reactive Protein Total Protein Albumin LDL Cholesterol Direct HDL Cholesterol Hepatitis C Antibody Crossmatch 11/22/17 11/22/17 11/22/17 03:53 06:00 07:25 WBC RBC Hgb Hct MCV MCH MCHC RDW Plt Count Lymph % (Auto) [place] % (Auto) Lymph # [place] # Seg Neutrophils % Seg Neuts % (Manual) Lymphocytes % (Manual) Monocytes % (Manual) Nucleated RBC % Seg Neutrophils # Seg Neutrophils # Man Lymphocytes # (Manual) Monocytes # (Manual) PT INR POC ABG pH POC ABG pCO2 22.2 L POC ABG pO2 Sodium 147 H Potassium Chloride 111.9 H Carbon Dioxide 16 L BUN 72 H Creatinine 5.1 H Glucose 181 H POC Glucose 180 H Lactic Acid Calcium 7.1 L Magnesium AST ALT Alkaline Phosphatase Troponin T C-Reactive Protein Total Protein Albumin LDL Cholesterol Direct HDL Cholesterol Hepatitis C Antibody Crossmatch 11/22/17 11/22/17 11/22/17 07:25 07:25 12:05 WBC 31.4 H RBC 3.22 L Hgb 8.0 L Hct 26.7 L MCV 83 L MCH 25 L MCHC 30 L RDW 19.4 H Plt Count 602 H Lymph % (Auto) [place] % (Auto) Lymph # [place] # Seg Neutrophils % Seg Neuts % (Manual) Lymphocytes % (Manual) Monocytes % (Manual) Nucleated RBC % Seg Neutrophils # Seg Neutrophils # Man Lymphocytes # (Manual) Monocytes # (Manual) PT INR POC ABG pH POC ABG pCO2 POC ABG pO2 Sodium Potassium Chloride Carbon Dioxide BUN Creatinine Glucose POC Glucose 182 H Lactic Acid 5.00 H* Calcium Magnesium AST ALT Alkaline Phosphatase Troponin T C-Reactive Protein Total Protein Albumin LDL Cholesterol Direct HDL Cholesterol Hepatitis C Antibody Crossmatch 11/22/17 11/23/17 11/23/17 19:45 01:28 04:56 WBC RBC Hgb Hct MCV MCH MCHC RDW Plt Count Lymph % (Auto) [place] % (Auto) Lymph # [place] # Seg Neutrophils % Seg Neuts % (Manual) Lymphocytes % (Manual) Monocytes % (Manual) Nucleated RBC % Seg Neutrophils # Seg Neutrophils # Man Lymphocytes # (Manual) Monocytes # (Manual) PT INR POC ABG pH 7.505 H POC ABG pCO2 26.3 L POC ABG pO2 Sodium Potassium Chloride Carbon Dioxide BUN Creatinine Glucose POC Glucose 165 H Lactic Acid Calcium Magnesium AST ALT Alkaline Phosphatase Troponin T C-Reactive Protein Total Protein Albumin LDL Cholesterol Direct HDL Cholesterol Hepatitis C Antibody Reactive A Crossmatch 11/23/17 11/23/17 11/23/17 07:05 12:32 17:53 WBC RBC Hgb Hct MCV MCH MCHC RDW Plt Count Lymph % (Auto) [place] % (Auto) Lymph # [place] # Seg Neutrophils % Seg Neuts % (Manual) Lymphocytes % (Manual) Monocytes % (Manual) Nucleated RBC % Seg Neutrophils # Seg Neutrophils # Man Lymphocytes # (Manual) Monocytes # (Manual) PT INR POC ABG pH POC ABG pCO2 POC ABG pO2 Sodium Potassium Chloride Carbon Dioxide 18 L BUN 61 H Creatinine 4.2 H Glucose 153 H POC Glucose 138 H 173 H Lactic Acid Calcium 7.5 L Magnesium AST ALT Alkaline Phosphatase Troponin T C-Reactive Protein Total Protein Albumin LDL Cholesterol Direct HDL Cholesterol Hepatitis C Antibody Crossmatch 11/23/17 11/24/17 11/24/17 23:41 05:42 05:42 WBC 21.5 H RBC 2.48 L Hgb 6.2 L Hct 20.3 L D MCV 82 L MCH 25 L MCHC 31 L RDW 18.9 H Plt Count Lymph % (Auto) [place] % (Auto) Lymph # [place] # Seg Neutrophils % Seg Neuts % (Manual) 94.0 H Lymphocytes % (Manual) 3.0 L Monocytes % (Manual) Nucleated RBC % Seg Neutrophils # Seg Neutrophils # Man 20.2 H Lymphocytes # (Manual) 0.6 L Monocytes # (Manual) PT INR POC ABG pH POC ABG pCO2 POC ABG pO2 Sodium 149 H Potassium 2.8 L* D Chloride 113.9 H Carbon Dioxide 19 L BUN 31 H Creatinine 2.3 H Glucose 103 H POC Glucose 133 H Lactic Acid Calcium 5.3 L* D Magnesium 1.30 L AST ALT Alkaline Phosphatase Troponin T C-Reactive Protein Total Protein Albumin LDL Cholesterol Direct HDL Cholesterol Hepatitis C Antibody Crossmatch 11/24/17 11/24/17 11/24/17 05:42 08:27 08:27 WBC RBC Hgb Hct MCV MCH MCHC RDW Plt Count Lymph % (Auto) [place] % (Auto) Lymph # [place] # Seg Neutrophils % Seg Neuts % (Manual) Lymphocytes % (Manual) Monocytes % (Manual) Nucleated RBC % Seg Neutrophils # Seg Neutrophils # Man Lymphocytes # (Manual) Monocytes # (Manual) PT INR POC ABG pH POC ABG pCO2 POC ABG pO2 Sodium Potassium Chloride Carbon Dioxide BUN Creatinine Glucose POC Glucose Lactic Acid 5.40 H* 5.20 H* Calcium Magnesium AST ALT Alkaline Phosphatase Troponin T C-Reactive Protein Total Protein Albumin LDL Cholesterol Direct HDL Cholesterol Hepatitis C Antibody Crossmatch See Detail 11/24/17 11/24/17 11/24/17 12:13 17:22 21:53 WBC 23.0 H RBC 3.32 L Hgb 8.8 L Hct 27.1 L D MCV 82 L MCH 26 L MCHC RDW 17.3 H Plt Count Lymph % (Auto) [place] % (Auto) Lymph # [place] # Seg Neutrophils % Seg Neuts % (Manual) Lymphocytes % (Manual) Monocytes % (Manual) Nucleated RBC % Seg Neutrophils # Seg Neutrophils # Man Lymphocytes # (Manual) Monocytes # (Manual) PT INR POC ABG pH POC ABG pCO2 POC ABG pO2 Sodium Potassium Chloride Carbon Dioxide BUN Creatinine Glucose POC Glucose 138 H 180 H Lactic Acid Calcium Magnesium AST ALT Alkaline Phosphatase Troponin T C-Reactive Protein Total Protein Albumin LDL Cholesterol Direct HDL Cholesterol Hepatitis C Antibody Crossmatch 11/24/17 11/24/17 11/25/17 21:53 23:28 04:19 WBC RBC Hgb Hct MCV MCH MCHC RDW Plt Count Lymph % (Auto) [place] % (Auto) Lymph # [place] # Seg Neutrophils % Seg Neuts % (Manual) Lymphocytes % (Manual) Monocytes % (Manual) Nucleated RBC % Seg Neutrophils # Seg Neutrophils # Man Lymphocytes # (Manual) Monocytes # (Manual) PT INR POC ABG pH POC ABG pCO2 POC ABG pO2 Sodium Potassium Chloride 96.3 L Carbon Dioxide BUN 28 H 31 H Creatinine 2.3 H 2.6 H Glucose 125 H 101 H POC Glucose 111 H Lactic Acid Calcium 7.5 L D 7.4 L Magnesium AST 170 H ALT 179 H Alkaline Phosphatase 175 H Troponin T C-Reactive Protein Total Protein 5.5 L Albumin 1.8 L LDL Cholesterol Direct HDL Cholesterol Hepatitis C Antibody Crossmatch 11/25/17 11/25/17 11/26/17 04:19 04:19 06:29 WBC 22.5 H RBC 3.48 L Hgb 9.1 L Hct 28.3 L MCV 81 L MCH 26 L MCHC RDW 17.4 H Plt Count Lymph % (Auto) [place] % (Auto) Lymph # [place] # Seg Neutrophils % Seg Neuts % (Manual) Lymphocytes % (Manual) Monocytes % (Manual) Nucleated RBC % Seg Neutrophils # Seg Neutrophils # Man Lymphocytes # (Manual) Monocytes # (Manual) PT 23.6 H INR 1.96 H POC ABG pH POC ABG pCO2 POC ABG pO2 Sodium Potassium Chloride Carbon Dioxide BUN 31 H Creatinine 2.6 H Glucose 101 H POC Glucose Lactic Acid Calcium 7.5 L Magnesium AST ALT Alkaline Phosphatase Troponin T C-Reactive Protein Total Protein Albumin LDL Cholesterol Direct HDL Cholesterol Hepatitis C Antibody Crossmatch 11/26/17 11/27/17 11/27/17 06:34 04:06 04:06 WBC 11.3 H RBC 3.13 L Hgb 8.4 L Hct 25.8 L MCV 82 L MCH 27 L MCHC RDW 17.7 H Plt Count Lymph % (Auto) 7.4 L [place] % (Auto) Lymph # 0.8 L [place] # Seg Neutrophils % 83.7 H Seg Neuts % (Manual) Lymphocytes % (Manual) Monocytes % (Manual) Nucleated RBC % Seg Neutrophils # 9.5 H Seg Neutrophils # Man Lymphocytes # (Manual) Monocytes # (Manual) PT INR POC ABG pH POC ABG pCO2 POC ABG pO2 Sodium Potassium Chloride 97.9 L Carbon Dioxide BUN 43 H 29 H Creatinine 3.5 H 2.9 H Glucose POC Glucose Lactic Acid Calcium 7.5 L 8.1 L Magnesium AST ALT Alkaline Phosphatase Troponin T C-Reactive Protein Total Protein Albumin LDL Cholesterol Direct HDL Cholesterol Hepatitis C Antibody Crossmatch 11/27/17 11/28/17 11/28/17 18:11 00:16 03:50 WBC RBC Hgb Hct MCV MCH MCHC RDW Plt Count Lymph % (Auto) [place] % (Auto) Lymph # [place] # Seg Neutrophils % Seg Neuts % (Manual) Lymphocytes % (Manual) Monocytes % (Manual) Nucleated RBC % Seg Neutrophils # Seg Neutrophils # Man Lymphocytes # (Manual) Monocytes # (Manual) PT INR POC ABG pH POC ABG pCO2 POC ABG pO2 Sodium Potassium Chloride Carbon Dioxide BUN 39 H Creatinine 4.1 H Glucose 108 H POC Glucose 110 H 124 H Lactic Acid Calcium 7.9 L Magnesium AST ALT Alkaline Phosphatase Troponin T C-Reactive Protein Total Protein Albumin LDL Cholesterol Direct HDL Cholesterol Hepatitis C Antibody Crossmatch 11/28/17 11/28/17 05:03 11:36 WBC RBC Hgb Hct MCV MCH MCHC RDW Plt Count Lymph % (Auto) [place] % (Auto) Lymph # [place] # Seg Neutrophils % Seg Neuts % (Manual) Lymphocytes % (Manual) Monocytes % (Manual) Nucleated RBC % Seg Neutrophils # Seg Neutrophils # Man Lymphocytes # (Manual) Monocytes # (Manual) PT INR POC ABG pH POC ABG pCO2 POC ABG pO2 Sodium Potassium Chloride Carbon Dioxide BUN Creatinine Glucose POC Glucose 134 H 114 H Lactic Acid Calcium Magnesium AST ALT Alkaline Phosphatase Troponin T C-Reactive Protein Total Protein Albumin LDL Cholesterol Direct HDL Cholesterol Hepatitis C Antibody Crossmatch Chest x-ray: report reviewed, image reviewed
[2017-11-28] MEDS: DIFLUCAN 200 MG/100 ML BAG IV SCH (13:27)
--- NOTE | 2017-11-28 13:36 | Progress Note ---
Assessment and Plan - Patient Problems (1) Acute respiratory failure with hypoxemia Current Visit: Yes Status: Acute Plan to address problem: Management of respiratory failure and multi lobar pneumonia per the recommendations of internal medicine and pulmonology. Cardiac status is stable, we will follow intermittently. Subjective Date of service: 11/28/17 Principal diagnosis: Acute hypoxic respiratory failure due to Pneumonia on MV> 96 hours s/p Trach Interval history: Patient is sedated on the vent. 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 Objective Vital Signs Temp Pulse Pulse Resp BP Pulse Ox Pulse Ox 11/28/17 13:31 90 26 H 108/59 97 11/28/17 13:00 94 H 24 111/60 97 11/28/17 12:31 111 H 23 144/76 100 11/28/17 12:26 107 H 108/59 98 11/28/17 12:00 97.5 F L 97 H 28 H 108/59 96 11/28/17 11:31 95 H 22 144/76 98 11/28/17 11:00 107 H 27 H 144/76 97 11/28/17 10:31 93 H 22 129/68 99 11/28/17 10:15 96 H 97 11/28/17 10:00 87 25 H 129/68 100 11/28/17 09:31 100 H 25 H 128/70 99 11/28/17 09:00 94 H 23 128/70 100 11/28/17 08:31 80 22 125/68 100 11/28/17 08:00 98.6 F 88 84 26 H 131/72 100 11/28/17 07:49 100 11/28/17 07:47 100 11/28/17 07:33 93 H 125/68 100 11/28/17 07:31 88 15 125/68 100 11/28/17 07:00 89 19 125/68 100 11/28/17 06:31 92 H 14 118/65 100 11/28/17 06:00 98 H 15 118/65 100 11/28/17 05:31 153/82 100 11/28/17 05:00 107 H 22 129/79 100 11/28/17 04:30 107 H 25 H 153/82 100 11/28/17 04:00 98.2 F 105 H 15 153/82 100 11/28/17 03:30 103 H 29 H 127/60 11/28/17 03:00 98 H 31 H 139/77 11/28/17 02:50 90 28 H 100 11/28/17 02:30 91 H 27 H 152/73 11/28/17 02:00 90 26 H 127/60 11/28/17 01:30 91 H 30 H 152/73 11/28/17 01:00 107 H 33 H 137/69 11/28/17 00:30 99 H 29 H 137/69 11/28/17 00:00 98.1 F 101 H 33 H 137/69 99 99 11/27/17 23:45 90 28 H 100 11/27/17 23:30 97 H 15 122/61 11/27/17 23:00 110 H 31 H 122/61 99 11/27/17 22:45 107 H 25 H 100 11/27/17 22:40 88 29 H 146/86 100 11/27/17 22:30 91 H 29 H 146/79 100 11/27/17 22:00 100 H 24 146/86 100 11/27/17 21:30 103 H 28 H 150/84 99 11/27/17 21:00 83 23 121/65 99 11/27/17 20:30 90 24 132/72 99 11/27/17 20:00 98.7 F 103 H 29 H 156/89 100 11/27/17 19:55 99 11/27/17 19:49 113 H 22 120/74 99 11/27/17 19:30 107 H 25 H 123/70 100 11/27/17 19:00 99 H 27 H 129/73 99 11/27/17 18:30 102 H 28 H 155/84 99 11/27/17 18:00 92 H 27 H 131/70 99 11/27/17 17:30 103 H 25 H 134/80 99 11/27/17 17:00 99 H 26 H 146/79 98 11/27/17 16:30 102 H 28 H 157/86 99 11/27/17 16:00 98.1 F 97 H 92 H 27 H 154/83 99 99 11/27/17 15:30 79 21 136/67 99 11/27/17 15:00 92 H 18 166/85 100 11/27/17 14:30 90 24 140/78 100 11/27/17 14:00 97 H 24 138/79 100 - Physical Examination General: Other ( on the vent via trach) HEENT: Positive: PERRL Neck: Positive: neck supple Cardiac: Positive: Reg Rate and Rhythm Lungs: Positive: Decreased Breath Sounds Neuro: Positive: Other (sedated on the vent) Abdomen: Positive: Soft Skin: Positive: Clear Extremities: Absent: edema - Labs and Meds Comprehensive Metabolic Panel 11/28/17 Range/Units 03:50 Sodium 140 (137-145) mmol/L Potassium 4.2 (3.6-5.0) mmol/L Chloride 98.1 (98-107) mmol/L Carbon Dioxide 26 (22-30) mmol/L BUN 39 H (9-20) mg/dL Creatinine 4.1 H (0.8-1.5) mg/dL Glucose 108 H (75-100) mg/dL Calcium 7.9 L (8.4-10.2) mg/dL - Imaging and Cardiology EKG: report reviewed
--- NOTE | 2017-11-28 13:45 | Progress Note ---
Assessment and Plan - Patient Problems (1) Ventilator dependence Current Visit: Yes Status: Acute Plan to address problem: ween as tolerated (2) Acute respiratory failure with hypoxemia Current Visit: Yes Status: Acute Plan to address problem: Titrate O2 to keep sat.+92% (3) Respiratory failure Current Visit: No Status: Acute Plan to address problem: ween as tolerated (4) Tracheostomy status Current Visit: Yes Status: Acute Plan to address problem: local trache care (5) Bronchorrhea Current Visit: Yes Status: Acute Plan to address problem: improved robinul with scopolamine OK per GI Subjective Principal diagnosis: Acute hypoxic respiratory failure due to Pneumonia on MV> 96 hours s/p Trach Interval history: POD #8 Pt. resting comfortably, Responds to tactile stim not a vigorous Objective - Constitutional Vitals: Vital Signs - 12hr 11/28/17 11/28/17 11/28/17 02:00 02:30 02:50 Temperature Pulse Rate 90 91 H 90 Pulse Rate [ Right From Monitor] Respiratory 26 H 27 H 28 H Rate Blood Pressure 127/60 152/73 O2 Sat by Pulse 100 Oximetry O2 Sat by Pulse Oximetry [ Assessment] 11/28/17 11/28/17 11/28/17 03:00 03:30 04:00 Temperature 98.2 F Pulse Rate 98 H 103 H 105 H Pulse Rate [ Right From Monitor] Respiratory 31 H 29 H 15 Rate Blood Pressure 139/77 127/60 153/82 O2 Sat by Pulse 100 Oximetry O2 Sat by Pulse Oximetry [ Assessment] 11/28/17 11/28/17 11/28/17 04:30 05:00 05:31 Temperature Pulse Rate 107 H 107 H Pulse Rate [ Right From Monitor] Respiratory 25 H 22 Rate Blood Pressure 153/82 129/79 153/82 O2 Sat by Pulse 100 100 100 Oximetry O2 Sat by Pulse Oximetry [ Assessment] 11/28/17 11/28/17 11/28/17 06:00 06:31 07:00 Temperature Pulse Rate 98 H 92 H 89 Pulse Rate [ Right From Monitor] Respiratory 15 14 19 Rate Blood Pressure 118/65 118/65 125/68 O2 Sat by Pulse 100 100 100 Oximetry O2 Sat by Pulse Oximetry [ Assessment] 11/28/17 11/28/17 11/28/17 07:31 07:33 07:47 Temperature Pulse Rate 88 93 H Pulse Rate [ Right From Monitor] Respiratory 15 Rate Blood Pressure 125/68 125/68 O2 Sat by Pulse 100 100 Oximetry O2 Sat by Pulse 100 Oximetry [ Assessment] 11/28/17 11/28/17 11/28/17 07:49 08:00 08:31 Temperature 98.6 F Pulse Rate 88 80 Pulse Rate [ 84 Right From Monitor] Respiratory 26 H 22 Rate Blood Pressure 131/72 125/68 O2 Sat by Pulse 100 100 100 Oximetry O2 Sat by Pulse Oximetry [ Assessment] 11/28/17 11/28/17 11/28/17 09:00 09:31 10:00 Temperature Pulse Rate 94 H 100 H 87 Pulse Rate [ Right From Monitor] Respiratory 23 25 H 25 H Rate Blood Pressure 128/70 128/70 129/68 O2 Sat by Pulse 100 99 100 Oximetry O2 Sat by Pulse Oximetry [ Assessment] 11/28/17 11/28/17 11/28/17 10:15 10:31 11:00 Temperature Pulse Rate 93 H 107 H Pulse Rate [ 96 H Right From Monitor] Respiratory 22 27 H Rate Blood Pressure 129/68 144/76 O2 Sat by Pulse 97 99 97 Oximetry O2 Sat by Pulse Oximetry [ Assessment] 11/28/17 11/28/17 11/28/17 11:31 12:00 12:26 Temperature 97.5 F L Pulse Rate 95 H 97 H 107 H Pulse Rate [ Right From Monitor] Respiratory 22 28 H Rate Blood Pressure 144/76 108/59 108/59 O2 Sat by Pulse 98 96 98 Oximetry O2 Sat by Pulse Oximetry [ Assessment] 11/28/17 11/28/17 11/28/17 12:31 13:00 13:31 Temperature Pulse Rate 111 H 94 H 90 Pulse Rate [ Right From Monitor] Respiratory 23 24 26 H Rate Blood Pressure 144/76 111/60 108/59 O2 Sat by Pulse 100 97 97 Oximetry O2 Sat by Pulse Oximetry [ Assessment] General appearance: Present: no acute distress - EENT Eyes: PERRL Ears: bilateral: bulging - Neck Neck: supple, other (stoma decreased secretions) - Respiratory Respiratory effort: normal, other (on vent) - Breasts Breasts: deferred - Cardiovascular Rhythm: regular Heart Sounds: Present: S1 & S2 Extremities: no ischemia - Gastrointestinal General gastrointestinal: Present: other (drains in place) Rectal Exam: deferred - Genitourinary Male genitourinary: deferred - Integumentary Integumentary: clear, warm, dry - Musculoskeletal Musculoskeletal: other (decreased tone) - Neurologic Neurologic: other (sedated) - Psychiatric Psychiatric: other (sedated) - Labs CBC & Chem 7: 11/27/17 04:06 11/28/17 03:50 Labs: Abnormal lab results 11/27/17 11/28/17 11/28/17 Range/Units 18:11 00:16 03:50 BUN 39 H (9-20) mg/dL Creatinine 4.1 H (0.8-1.5) mg/dL Glucose 108 H (75-100) mg/dL POC Glucose 110 H 124 H (70-105) Calcium 7.9 L (8.4-10.2) mg/dL 11/28/17 11/28/17 Range/Units 05:03 11:36 BUN (9-20) mg/dL Creatinine (0.8-1.5) mg/dL Glucose (75-100) mg/dL POC Glucose 134 H 114 H (70-105) Calcium (8.4-10.2) mg/dL
[2017-11-28] MEDS ORDERED: NACL 0.9 (PRIMING MACHINE ONLY DIALYSIS) MC ONE (20:18)
--- NOTE | 2017-11-28 20:52 | Progress Note ---
Assessment and Plan - Patient Problems (1) Gastrostomy malfunction Current Visit: Yes Status: Acute Plan to address problem: Pt is stable. After reviewing the records, discussing the case with multiple attendings, and seeing the patient, it is clear that we do not have an acute perforation. Most likely, the PEG tube started to migrate out of position prior to 11/18 as evidenced by no PEG button seen on EGD and no obvious hole in the stomach. As the contrast is restricted to certain areas in the abdomen, the fluid is loculated. The "ascites" may be tube feeds and/or reactionary fluid. Regardless, patient is not showing signs of obvious peritonitis. In this case, it may be prudent to try placing a few drains in the abdomen to remove that largest collections. I have already discussed this case with Dr. Moreira who agreed to review the case and see if that was possible. The alternative would be to take the patient for an ex-lap and washout the abdomen. I'm concerned that there may be a lot of inflammatory changes in the abdomen which would put him at risk for bowel injuries from the procedure. Therefore, this will be our back-up plan if the drains do not resolve the problem. As for nutritional access , for now, I would recommend an NGT. I doubt he has an active leak, so there is no need to test the stomach prior to using it. I have explained this plan in detail to the daughter (Jannette) and the attendings from ICU, GI, and hospitalist service. All were in agreement. - 11/25/17 Initial Consult Pt appears stable. Drain output appearance improved at LUQ and periumbilical drains. RUQ still have purulent appearing fluid. Continue with drains for now. Timing of the next CT will be dependent on the appearance of the drainage and the patient's clinical condition. 1) Continue drainage of abdomen. 2) Abx per ID 3) May use DHT for feeds Please call with questions. Time=10min Subjective Date of service: 11/28/17 Patient Reports: Positive: other (no new issues) Objective Vital Signs - 12hr 11/28/17 11/28/17 11/28/17 09:00 09:31 10:00 Temperature Pulse Rate 94 H 100 H 87 Pulse Rate [ Right From Monitor] Respiratory 23 25 H 25 H Rate Blood Pressure 128/70 128/70 129/68 O2 Sat by Pulse 100 99 100 Oximetry O2 Sat by Pulse Oximetry [ Bilateral Throughout] 11/28/17 11/28/17 11/28/17 10:15 10:31 11:00 Temperature Pulse Rate 93 H 107 H Pulse Rate [ 96 H Right From Monitor] Respiratory 22 27 H Rate Blood Pressure 129/68 144/76 O2 Sat by Pulse 97 99 97 Oximetry O2 Sat by Pulse Oximetry [ Bilateral Throughout] 11/28/17 11/28/17 11/28/17 11:31 12:00 12:26 Temperature 97.5 F L Pulse Rate 95 H 97 H 107 H Pulse Rate [ Right From Monitor] Respiratory 22 28 H Rate Blood Pressure 144/76 108/59 108/59 O2 Sat by Pulse 98 96 98 Oximetry O2 Sat by Pulse Oximetry [ Bilateral Throughout] 11/28/17 11/28/17 11/28/17 12:31 13:00 13:31 Temperature Pulse Rate 111 H 94 H 90 Pulse Rate [ Right From Monitor] Respiratory 23 24 26 H Rate Blood Pressure 144/76 111/60 108/59 O2 Sat by Pulse 100 97 97 Oximetry O2 Sat by Pulse Oximetry [ Bilateral Throughout] 11/28/17 11/28/17 11/28/17 13:55 14:00 14:31 Temperature Pulse Rate 106 H 112 H Pulse Rate [ Right From Monitor] Respiratory 21 42 H Rate Blood Pressure 139/71 139/71 O2 Sat by Pulse 97 100 99 Oximetry O2 Sat by Pulse Oximetry [ Bilateral Throughout] 11/28/17 11/28/17 11/28/17 15:00 15:31 16:00 Temperature 98.6 F Pulse Rate 111 H 96 H 92 H Pulse Rate [ Right From Monitor] Respiratory 37 H 30 H 32 H Rate Blood Pressure 151/80 139/71 132/60 O2 Sat by Pulse 99 99 99 Oximetry O2 Sat by Pulse Oximetry [ Bilateral Throughout] 11/28/17 11/28/17 11/28/17 16:31 16:48 17:00 Temperature Pulse Rate 100 H 111 H Pulse Rate [ Right From Monitor] Respiratory 34 H 24 Rate Blood Pressure 132/60 125/67 O2 Sat by Pulse 100 98 100 Oximetry O2 Sat by Pulse Oximetry [ Bilateral Throughout] 11/28/17 11/28/17 11/28/17 17:31 17:55 18:00 Temperature 98.6 F Pulse Rate 97 H 92 H 107 H Pulse Rate [ Right From Monitor] Respiratory 33 H 24 30 H Rate Blood Pressure 125/67 128/69 157/88 O2 Sat by Pulse 100 100 Oximetry O2 Sat by Pulse 100 Oximetry [ Bilateral Throughout] 11/28/17 11/28/17 11/28/17 18:15 18:30 18:45 Temperature Pulse Rate 108 H 109 H 108 H Pulse Rate [ Right From Monitor] Respiratory Rate Blood Pressure 162/93 147/87 135/83 O2 Sat by Pulse Oximetry O2 Sat by Pulse Oximetry [ Bilateral Throughout] 11/28/17 11/28/17 11/28/17 19:00 19:15 19:30 Temperature Pulse Rate 98 H 98 H 98 H Pulse Rate [ Right From Monitor] Respiratory Rate Blood Pressure 115/75 115/75 115/77 O2 Sat by Pulse 100 Oximetry O2 Sat by Pulse Oximetry [ Bilateral Throughout] 11/28/17 11/28/17 11/28/17 19:45 20:00 20:01 Temperature Pulse Rate 114 H 121 H 117 H Pulse Rate [ Right From Monitor] Respiratory 20 Rate Blood Pressure 147/97 119/87 119/87 O2 Sat by Pulse 100 100 Oximetry O2 Sat by Pulse Oximetry [ Bilateral Throughout] 11/28/17 11/28/17 11/28/17 20:15 20:30 20:45 Temperature Pulse Rate 115 H 115 H 116 H Pulse Rate [ Right From Monitor] Respiratory Rate Blood Pressure 118/85 127/86 119/87 O2 Sat by Pulse Oximetry O2 Sat by Pulse Oximetry [ Bilateral Throughout] - General physical appearance no distress, no pain, other (awake. Not interactive.) - Respiratory normal expansion, normal respiratory effort - Abdomen soft, not tender, distended (less), not guarding, not rigid, other (LUQ drain still with thicker, white output. The other two drains are serosanguineous) - Integumentary no rash, no growths, no abnormal pigmentation - Labs 11/27/17 04:06 11/28/17 03:50 Diabetes panel 11/28/17 Range/Units 03:50 Sodium 140 (137-145) mmol/L Potassium 4.2 (3.6-5.0) mmol/L Chloride 98.1 (98-107) mmol/L Carbon Dioxide 26 (22-30) mmol/L BUN 39 H (9-20) mg/dL Creatinine 4.1 H (0.8-1.5) mg/dL Glucose 108 H (75-100) mg/dL Calcium 7.9 L (8.4-10.2) mg/dL Calcium panel 11/28/17 Range/Units 03:50 Calcium 7.9 L (8.4-10.2) mg/dL Pituitary panel 11/28/17 Range/Units 03:50 Sodium 140 (137-145) mmol/L Potassium 4.2 (3.6-5.0) mmol/L Chloride 98.1 (98-107) mmol/L Carbon Dioxide 26 (22-30) mmol/L BUN 39 H (9-20) mg/dL Creatinine 4.1 H (0.8-1.5) mg/dL Glucose 108 H (75-100) mg/dL Calcium 7.9 L (8.4-10.2) mg/dL Adrenal panel 11/28/17 Range/Units 03:50 Sodium 140 (137-145) mmol/L Potassium 4.2 (3.6-5.0) mmol/L Chloride 98.1 (98-107) mmol/L Carbon Dioxide 26 (22-30) mmol/L BUN 39 H (9-20) mg/dL Creatinine 4.1 H (0.8-1.5) mg/dL Glucose 108 H (75-100) mg/dL Calcium 7.9 L (8.4-10.2) mg/dL
--- NOTE | 2017-11-29 03:09 | XRay Report ---
FINAL REPORT EXAM: XR ABDOMEN 1V AP HISTORY: DOBHOFF TUBE PLACEMENT COMPARISON: November 26, 2017. FINDINGS: AP view of the abdomen obtained. Distal tip of feeding tube projects over the mid stomach. This could be advanced 15 centimeters to be within the proximal duodenum. This is similar position compared to prior study. Two pigtail catheters project over the right mid to upper abdomen. Nonspecific bowel gas pattern. IMPRESSION: Distal tip of the NG tube projects over the mid stomach. This could be advanced 15 centimeters to be within the proximal duodenum.
[2017-11-29 05:57] LABS: Basophils % (Auto) 0.2 % (0.0-1.8); Eosinophils # (Auto) 0.2 K/mm3 (0.0-0.4); Eosinophils % (Auto) 1.9 % (0.0-4.3); Hematocrit 27.3 % (35.5-45.6); Hemoglobin 8.6 gm/dl (11.8-15.2); Lymphocytes # (Auto) 0.5 K/mm3 (1.2-5.4); Lymphocytes % (Auto) 3.7 % (13.4-35.0); Mean Corpuscular HGB Conc 32 % (32-34); Mean Corpuscular Volume 82 fl (84-94); Monocytes % (Auto) 7.7 % (0.0-7.3); Platelet Count 149 K/mm3 (140-440); Red Blood Count 3.34 M/mm3 (3.65-5.03); Red Cell Distribution Width 18.5 % (13.2-15.2)
[2017-11-29 06:01] LABS: Mean Corpuscular Hemoglobin 26 pg (28-32)
[2017-11-29 06:22] LABS: Calcium 7.8 mg/dL (8.4-10.2)
--- NOTE | 2017-11-29 06:48 | XRay Report ---
FINAL REPORT PROCEDURE: XR ABDOMEN 1V AP TECHNIQUE: AP supine portable radiograph of the abdomen was obtained at 11/29/2017 05:32 (EST) . HISTORY: DOBHOFF TUBE PLACEMENT AFTER ADVANCEMENT COMPARISON: 11/29/2017 FINDINGS: Bowel gas pattern: Nonobstructive. Masses or calcifications: None. Bony structures: Normal. Other: The Dobhoff tube is in the stomach.. There are multiple intra-abdominal drainage catheters. IMPRESSION: NG tube is in the stomach.
[2017-11-29] MEDS: PROTONIX IV SCH ×2 (09:56→22:18)
[2017-11-29] MEDS: DIFLUCAN 200 MG/100 ML BAG IV SCH (09:57)
[2017-11-29] MEDS: SODIUM CHLORIDE FLUSH SYRINGE 10 ML IV SCH ×2 (09:57→22:19)
[2017-11-29] MEDS ORDERED: NACL 0.9% 100 ML IV PRN (11:41)
--- NOTE | 2017-11-29 11:41 | Progress Note ---
Assessment and Plan Assessment : * Acute kidney injury. Most likely ATN . patient has been initiated on renal replacement therapy on 11/23/17 * Respiratory failure * Metabolic acidosis * Hypokalemia * Severe anemia * Carotid artery disease . s/p carotid endarterectomy * Hypocalcemia Recommendations * No evidence of renal recovery . * Schedule patient for hemodialysis for tomorrow * Hypokalemia and hypocalcemia much improved * Acidosis has been corrected . Off bicarbonate * easley catheter has been removed . * Prognosis remains very poor * Assess need for dialysis on daily basis . Subjective Date of service: 11/29/17 Principal diagnosis: Acute hypoxic respiratory failure due to Pneumonia on MV> 96 hours s/p Trach Interval history: patient currently on T-piece with 35% FiO2 . Unresponsive . Remains off pressors Objective - Vital Signs Vital signs: Vital Signs - 12hr 11/29/17 11/29/17 11/29/17 00:00 01:00 02:00 Temperature 98.5 F Pulse Rate 110 H 113 H 100 H Pulse Rate [ Right From Monitor] Respiratory 37 H 18 35 H Rate Blood Pressure 134/75 136/77 115/58 O2 Sat by Pulse 98 100 98 Oximetry 11/29/17 11/29/17 11/29/17 02:34 03:00 03:43 Temperature Pulse Rate 108 H 105 H 109 H Pulse Rate [ Right From Monitor] Respiratory 35 H Rate Blood Pressure 128/60 143/68 O2 Sat by Pulse 98 100 Oximetry 11/29/17 11/29/17 11/29/17 03:59 04:00 05:00 Temperature 98.6 F Pulse Rate 104 H 107 H Pulse Rate [ Right From Monitor] Respiratory 35 H 35 H Rate Blood Pressure 136/67 152/75 O2 Sat by Pulse 99 100 Oximetry 11/29/17 11/29/17 11/29/17 06:00 07:00 07:23 Temperature Pulse Rate 99 H 102 H Pulse Rate [ 108 H Right From Monitor] Respiratory 32 H 36 H Rate Blood Pressure 125/69 137/69 O2 Sat by Pulse 99 99 100 Oximetry 11/29/17 11/29/17 11/29/17 08:00 08:05 09:00 Temperature 98.5 F Pulse Rate 101 H 106 H 104 H Pulse Rate [ Right From Monitor] Respiratory 35 H 20 34 H Rate Blood Pressure 124/70 124/70 139/78 O2 Sat by Pulse 100 100 100 Oximetry 11/29/17 11/29/17 09:59 10:00 Temperature Pulse Rate 89 94 H Pulse Rate [ 94 H Right From Monitor] Respiratory 29 H Rate Blood Pressure 121/70 O2 Sat by Pulse 100 Oximetry - General Appearance General appearance: well-developed, well-nourished, appears stated age, other ( on T-piece ) EENT: PERRL, mucous membranes moist Neck: no JVD, no thyromegaly, no carotid bruit, supple Respiratory: Present: Ronchi Cardiology: regular, normal heart rate Gastrointestinal: normoactive bowel sounds, other (drainage tubes in place ) Integumentary: other (1+ edema ) - Lab 11/29/17 05:25 11/29/17 05:25 Most recent lab results Calcium 7.8 mg/dL (8.4-10.2) L 11/29/17 05:25 Magnesium 2.00 mg/dL (1.7-2.3) 11/24/17 21:53
--- NOTE | 2017-11-29 14:17 | Progress Note ---
Assessment and Plan - Patient Problems (1) Acute respiratory failure with hypoxemia Current Visit: Yes Status: Acute Plan to address problem: Conservative cardiac management. Subjective Date of service: 11/29/17 Principal diagnosis: Acute hypoxic respiratory failure due to Pneumonia on MV> 96 hours s/p Trach Interval history: Patient is comfortable, no cardiac complaints. He is somnolent, breathing via trach T piece. Objective Vital Signs Temp Pulse Pulse Resp BP Pulse Ox Pulse Ox 11/29/17 14:03 98 11/29/17 14:00 109 H 25 H 156/86 99 11/29/17 13:00 112 H 39 H 165/75 91 11/29/17 12:00 98.4 F 98 H 29 H 121/61 97 11/29/17 11:00 102 H 34 H 148/78 100 11/29/17 10:00 94 H 94 H 29 H 121/70 100 11/29/17 09:59 89 11/29/17 09:00 104 H 34 H 139/78 100 11/29/17 08:05 106 H 20 124/70 100 11/29/17 08:00 98.5 F 101 H 35 H 124/70 100 11/29/17 07:23 108 H 100 11/29/17 07:00 102 H 36 H 137/69 99 11/29/17 06:00 99 H 32 H 125/69 99 11/29/17 05:00 107 H 35 H 152/75 100 11/29/17 04:00 104 H 35 H 136/67 99 11/29/17 03:59 98.6 F 11/29/17 03:43 109 H 143/68 100 11/29/17 03:00 105 H 35 H 128/60 98 11/29/17 02:34 108 H 11/29/17 02:00 100 H 35 H 115/58 98 11/29/17 01:00 113 H 18 136/77 100 11/29/17 00:00 98.5 F 110 H 37 H 134/75 98 11/28/17 23:18 112 H 133/78 100 99 11/28/17 23:00 99 H 30 H 114/65 100 11/28/17 22:00 97 H 29 H 116/65 100 11/28/17 21:33 99 H 28 H 105/63 100 11/28/17 21:10 98.6 F 107 H 21 123/73 11/28/17 21:00 112 H 36 H 132/76 100 11/28/17 20:57 109 H 25 H 141/81 100 11/28/17 20:45 116 H 119/87 11/28/17 20:30 115 H 127/86 11/28/17 20:15 115 H 118/85 11/28/17 20:01 117 H 119/87 100 11/28/17 20:00 98.5 F 121 H 20 119/87 98 11/28/17 19:45 114 H 147/97 11/28/17 19:30 98 H 115/77 11/28/17 19:15 98 H 115/75 11/28/17 19:00 98 H 115/75 100 11/28/17 18:45 108 H 135/83 11/28/17 18:30 109 H 147/87 11/28/17 18:15 108 H 162/93 11/28/17 18:00 107 H 30 H 157/88 100 11/28/17 17:55 98.6 F 92 H 24 128/69 11/28/17 17:31 97 H 33 H 125/67 100 11/28/17 17:00 111 H 24 125/67 100 11/28/17 16:48 98 11/28/17 16:31 100 H 34 H 132/60 100 11/28/17 16:00 98.6 F 92 H 32 H 132/60 99 11/28/17 15:31 96 H 30 H 139/71 99 11/28/17 15:00 111 H 37 H 151/80 99 11/28/17 14:31 112 H 42 H 139/71 99 Pulse Ox 11/29/17 14:03 11/29/17 14:00 11/29/17 13:00 11/29/17 12:00 11/29/17 11:00 11/29/17 10:00 11/29/17 09:59 11/29/17 09:00 11/29/17 08:05 11/29/17 08:00 11/29/17 07:23 11/29/17 07:00 11/29/17 06:00 11/29/17 05:00 11/29/17 04:00 11/29/17 03:59 11/29/17 03:43 11/29/17 03:00 11/29/17 02:34 11/29/17 02:00 11/29/17 01:00 11/29/17 00:00 11/28/17 23:18 11/28/17 23:00 11/28/17 22:00 11/28/17 21:33 11/28/17 21:10 100 11/28/17 21:00 11/28/17 20:57 11/28/17 20:45 11/28/17 20:30 11/28/17 20:15 11/28/17 20:01 11/28/17 20:00 11/28/17 19:45 11/28/17 19:30 11/28/17 19:15 11/28/17 19:00 11/28/17 18:45 11/28/17 18:30 11/28/17 18:15 11/28/17 18:00 11/28/17 17:55 100 11/28/17 17:31 11/28/17 17:00 11/28/17 16:48 11/28/17 16:31 11/28/17 16:00 11/28/17 15:31 11/28/17 15:00 11/28/17 14:31 - Physical Examination General: No Apparent Distress, Other (trach T piece) HEENT: Positive: PERRL Neck: Positive: neck supple Cardiac: Positive: Reg Rate and Rhythm Lungs: Positive: Decreased Breath Sounds Neuro: Positive: Weakness Abdomen: Positive: Soft Skin: Positive: Clear Extremities: Absent: edema - Labs and Meds CBC 11/29/17 Range/Units 05:25 WBC 12.3 H (4.5-11.0) K/mm3 RBC 3.34 L (3.65-5.03) M/mm3 Hgb 8.6 L (11.8-15.2) gm/dl Hct 27.3 L (35.5-45.6) % Plt Count 149 (140-440) K/mm3 Lymph # 0.5 L (1.2-5.4) K/mm3 Dukes # 1.0 H (0.0-0.8) K/mm3 Eos # 0.2 (0.0-0.4) K/mm3 Baso # 0.0 (0.0-0.1) K/mm3 Comprehensive Metabolic Panel 11/29/17 Range/Units 05:25 Sodium 143 (137-145) mmol/L Potassium 3.9 (3.6-5.0) mmol/L Chloride 101.5 (98-107) mmol/L Carbon Dioxide 26 (22-30) mmol/L BUN 29 H (9-20) mg/dL Creatinine 3.5 H (0.8-1.5) mg/dL Glucose 109 H (75-100) mg/dL Calcium 7.8 L (8.4-10.2) mg/dL - Imaging and Cardiology EKG: report reviewed
--- NOTE | 2017-11-29 14:25 | Progress Note ---
Assessment and Plan Assessment and Plan Mr. 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 He had a Carotid doppler done that revealed a right ICA 50-79% stenosis. CTA of the neck revealed 80% stenosis of the right ICA with probable 50% stenosis of the origin of the right common carotid artery. His symptoms were thought to be due to the Carotid artery stenosis which was disheartening since he was on Aspirin and plavix. He was scheduled for right CEA but needed Cardiac clearance. He underwent stress test on 10/05/17 and Power Tool Repair Technician stated he was stable for non-cardiac history, low to moderate perioperative risk. So, he underwent right carotid enarterectomy on 10/09/17. Following the surgery, he developed recurrent left sided weakness/hemiparesis was taken to OR again on for Open Thrombectomy of Right Internal Carotid Artery and Injection of TPA into the Distal Artery. CT head obtained on 10/12/17 showed massive right cerebral hemisphere acute CVA with midline shift. He was discharged on 11/10/17 to [facility] but returned to ED on 11/12/17 for sob. He was admitted for Aspiration post-obstructive pneumonia with suspected mucus plug and subsequently intubated on admission. ON 11/20/17, patient went for Tracheostomy by Dr. Hughes, ENT. Then on 11/21/17 patient went into shock, most sepsis as WBC went up to 38k; most likely Aspiration pneumonitis, antibiotics restarted. He was on maximum dose of Levophed and Neosynephrine (right femoral line placed 11/21/[address] Celis for vasopressors). Then 11/22/17 (Thursday morning) the Neosynephrine weaned off and Levophed down to 10 mcg, also Dr. Palmer placed a left femoral tunnel cath for Hemodialysis. Today, Levophed has been weaned off. * CTA chest IMPRESSION: There is no thoracic aortic aneurysm or dissection.. There is no pulmonary embolism.. There is complete atelectasis of the left lung causing volume loss and mediastinal shift to the left. This is due to blockage of the left bronchus by the endotracheal tube which is in the right mainstem bronchus. There is no pleural effusion or pneumothorax.. There is pneumoperitoneum and ascites.. Dr. Navarro was notified by telephone at 3:20 a.m. central. * 1v Abd XRAY IMPRESSION: Nasogastric tube ends in the stomach. A PEG tube is identified. Bowel gas pattern is nonobstructive. -Acute on chronic blood loss anemia w/Coffee-ground material from peg tube: GI is following, treat with ppi iv bid, EGD done 11/18/17 showed 8 mm cratered, 10 mm linear ulcer proximal lesser curvature with erythema but no other bleeding stigmata, gastritis and 4-5 cm hiatal hernia 2 UNITS PRBC TRANSFUSED. MONITOR H/H -Concerning for intrabdominal abscess: Vascular drains placed, WBC and renal function improving. Disucssed with ID following. Cultures growing GNR on surgical culture -Acute hypoxic respiratory failure due to Pneumonia on MV>96 hours s/p Tracheostomy 11/20/17: continue MV, daily weaning attempt -Leukocyotosis with Sepsis with transient septic shock, poa: shock resolved, continue abx, ID is following -Aspiration pneumonia, with mucus plugging/post obstructive pna poa: Training And Quality Manager is following, following sunction protocols -Acute encephalopathy: treat supportively. -Hypernatremia: Resolved -ARF/CKD poa: IV fluids, monitor bmp closely -Dysphagia with aspiration: s/p peg tube - No family present at this time. -Advance care planning: full code -Poor prognosis. Note copied in order to maintain accurate continuation in this complex case. Changes made to indicate current events and management. The high probability of a clinically significant, sudden or life threatening deterioration of the [HEMATOLOGY, PULMONARY] system(s) required my full and direct attention, intervention and personal management. The aggregate critical care time was [45] minutes. This time is in addition to time spent performing reported procedures but includes the following: [X] Data Review and interpretation [X] Patient assessment and monitoring of vital signs [X] Documentation [X] Medication orders and management Subjective Date of service: 11/29/17 Principal diagnosis: Acute hypoxic respiratory failure due to Pneumonia on MV> 96 hours s/p Trach Interval history: Same condition.No interval change. Objective - Constitutional Vitals: Vital Signs - 12hr 11/29/17 11/29/1711/29/18 02:34 03:00 03:43 Temperature Pulse Rate 108 H 105 H 109 H Pulse Rate [ Right From Monitor] Respiratory 35 H Rate Blood Pressure 128/60 143/68 O2 Sat by Pulse 98 100 Oximetry O2 Sat by Pulse Oximetry [ Assessment] 11/29/17 11/29/17 11/29/17 03:59 04:00 05:00 Temperature 98.6 F Pulse Rate 104 H 107 H Pulse Rate [ Right From Monitor] Respiratory 35 H 35 H Rate Blood Pressure 136/67 152/75 O2 Sat by Pulse 99 100 Oximetry O2 Sat by Pulse Oximetry [ Assessment] 11/29/17 11/29/17 11/29/17 06:00 07:00 07:23 Temperature Pulse Rate 99 H 102 H Pulse Rate [ 108 H Right From Monitor] Respiratory 32 H 36 H Rate Blood Pressure 125/69 137/69 O2 Sat by Pulse 99 99 100 Oximetry O2 Sat by Pulse Oximetry [ Assessment] 11/29/17 11/29/17 11/29/17 08:00 08:05 09:00 Temperature 98.5 F Pulse Rate 101 H 106 H 104 H Pulse Rate [ Right From Monitor] Respiratory 35 H 20 34 H Rate Blood Pressure 124/70 124/70 139/78 O2 Sat by Pulse 100 100 100 Oximetry O2 Sat by Pulse Oximetry [ Assessment] 11/29/17 11/29/17 11/29/17 09:59 10:00 11:00 Temperature Pulse Rate 89 94 H 102 H Pulse Rate [ 94 H Right From Monitor] Respiratory 29 H 34 H Rate Blood Pressure 121/70 148/78 O2 Sat by Pulse 100 100 Oximetry O2 Sat by Pulse Oximetry [ Assessment] 11/29/17 11/29/17 11/29/17 12:00 13:00 14:00 Temperature 98.4 F Pulse Rate 98 H 112 H 109 H Pulse Rate [ Right From Monitor] Respiratory 29 H 39 H 25 H Rate Blood Pressure 121/61 165/75 156/86 O2 Sat by Pulse 97 91 99 Oximetry O2 Sat by Pulse Oximetry [ Assessment] 11/29/17 14:03 Temperature Pulse Rate Pulse Rate [ Right From Monitor] Respiratory Rate Blood Pressure O2 Sat by Pulse Oximetry O2 Sat by Pulse 98 Oximetry [ Assessment] General appearance: Present: mild distress, well-nourished - EENT Eyes: PERRL, EOM intact ENT: hearing intact, clear oral mucosa Ears: bilateral: normal - Neck Neck: supple, normal ROM - Respiratory Respiratory effort: normal Respiratory: bilateral: CTA - Breasts Breasts: normal - Cardiovascular Rhythm: regular Heart Sounds: Present: S1 & S2. Absent: gallop, rub Extremities: pulses intact, No edema, normal color, Full ROM - Gastrointestinal General gastrointestinal: Present: soft, non-tender, non-distended, normal bowel sounds - Genitourinary Male genitourinary: normal - Integumentary Integumentary: clear, warm, dry - Musculoskeletal Musculoskeletal: 1, strength equal bilaterally - Neurologic Neurologic: moves all extremities - Psychiatric Psychiatric: memory intact, appropriate mood/affect, intact judgment & insight - Labs CBC & Chem 7: 11/29/17 05:25 11/29/17 05:25 Labs: Abnormal lab results 11/28/17 11/29/17 11/29/17 Range/Units 17:42 00:22 05:25 WBC (4.5-11.0) K/mm3 RBC (3.65-5.03) M/mm3 Hgb (11.8-15.2) gm/dl Hct (35.5-45.6) % MCV (84-94) fl MCH (28-32) pg RDW (13.2-15.2) % Lymph % (Auto) (13.4-35.0) % Hopkins % (Auto) (0.0-7.3) % Lymph # (1.2-5.4) K/mm3 Hopkins # (0.0-0.8) K/mm3 Seg Neutrophils % (40.0-70.0) % Seg Neutrophils # (1.8-7.7) K/mm3 BUN 29 H (9-20) mg/dL Creatinine 3.5 H (0.8-1.5) mg/dL Glucose 109 H (75-100) mg/dL POC Glucose 119 H 137 H (70-105) Calcium 7.8 L (8.4-10.2) mg/dL 11/29/17 11/29/17 Range/Units 05:25 05:26 WBC 12.3 H (4.5-11.0) K/mm3 RBC 3.34 L (3.65-5.03) M/mm3 Hgb 8.6 L (11.8-15.2) gm/dl Hct 27.3 L (35.5-45.6) % MCV 82 L (84-94) fl MCH 26 L (28-32) pg RDW 18.5 H (13.2-15.2) % Lymph % (Auto) 3.7 L (13.4-35.0) % Hopkins % (Auto) 7.7 H (0.0-7.3) % Lymph # 0.5 L (1.2-5.4) K/mm3 Hopkins # 1.0 H (0.0-0.8) K/mm3 Seg Neutrophils % 86.5 H (40.0-70.0) % Seg Neutrophils # 10.7 H (1.8-7.7) K/mm3 BUN (9-20) mg/dL Creatinine (0.8-1.5) mg/dL Glucose (75-100) mg/dL POC Glucose 129 H (70-105) Calcium (8.4-10.2) mg/dL
--- NOTE | 2017-11-29 16:37 | Progress Note ---
Assessment and Plan Imp: 1. CVA 2. Hemiparesis 3. Aspiration pneumonitis related to above 4. Sepsis 2/2 peritonitis/PEG mal-position, better 5. DARYA 6. s/p Trach/PEG Rec: 1. Volume removal with HD 2. ID re-evaluation is pending; added Diflucan to cover the Heather and changed Zosyn to Cefipime re: the Enterobacter, see sensitivities 3. PEG is out; NGT feeds okay per surgery, now tolerating at 15mL/hour -> titrate up slowly 4. SCDs; GI PPx 5. Cont. Tpiece as tolerated; trach will need to be permanent for secretion clearance; ENT will downsize once off ventilator, see notes 6. Monitor H/H 7. Insurance denies LTAC coverage Long-term prognosis poor; no family present Subjective Date of service: 11/29/17 Principal diagnosis: Acute hypoxic respiratory failure due to Pneumonia on MV> 96 hours s/p Trach Interval history: Off sedation. Arouses. Moves RUE. Off pressors. Pigtail drainage catheters in place x 3, with the old PEG tube site drain still draining cloudy/fluid, other 2 drains clear yellow. On Tpiece and tolerating well x 24 hours. Active Medications Acetaminophen (Tylenol) 650 mg NV Q4H PRN PRN Reason: Pain MILD(1-3)/Fever >100.5/CABELLO Last Admin: 11/22/17 09:07 Dose: 650 mg Lipase/Protease/Amylase (Pancreaze Dr 10,500 Unit) 1 each FEEDTUBE PRN PRN PRN Reason: For Clogged Feeding Tube Epoetin Feliz (Procrit) 10,000 unit IV TIM PRN PRN Reason: hemodialysis Fentanyl Citrate (Fentanyl Drip Premix) 2,000 mcg in 100 mls @ 3.969 mls/hr IV TITR [facility]; Protocol Last Titration: 11/12/17 04:07 Dose: 5 mcg/kg/hr, 19.845 mls/hr Propofol (Diprivan 10 Mg/Ml) 1,000 mg in 100 mls @ 2.381 mls/hr IV TITR [facility]; Protocol Last Titration: 11/17/17 19:32 Dose: 10 mcg/kg/min, 4.763 mls/hr Norepinephrine 8 mg/ Sodium (Chloride) 250 mls @ 3.75 mls/hr IV TITR [facility]; Protocol Last Titration: 11/23/17 04:00 Dose: 0 mcg/min, 0 mls/hr Phenylephrine HCl 100 mg/ (Sodium Chloride) 100 mls @ 3 mls/hr IV TITR [facility]; Protocol Last Titration: 11/22/17 00:10 Dose: 0 mcg/min, 0 mls/hr Fluconazole (Diflucan) 200 mg in 100 mls @ 100 mls/hr IV Q24HR [facility]; Protocol Last Admin: 11/29/17 09:57 Dose: 100 mls/hr Sodium Chloride (Nacl 0.9%) 100 mls @ 999 mls/hr IV TIM PRN PRN Reason: Hypotension Cefepime HCl (Maxipime/Ns 2 Gm/100 Ml) 2 gm in 100 mls @ 200 mls/hr IV DAILY [facility]; Protocol Ondansetron HCl (Zofran) 4 mg IV Q8H PRN PRN Reason: Nausea And Vomiting Pantoprazole Sodium (Protonix) 40 mg IV BID [facility] Last Admin: 11/29/17 09:56 Dose: 40 mg Sodium Chloride (Sodium Chloride Flush Syringe 10 Ml) 10 ml IV BID [facility] Last Admin: 11/29/17 09:57 Dose: 10 ml Sodium Chloride (Sodium Chloride Flush Syringe 10 Ml) 10 ml IV PRN PRN PRN Reason: LINE FLUSH Objective Vital Signs - 12hr 11/29/17 11/29/17 11/29/17 05:00 06:00 07:00 Temperature Pulse Rate 107 H 99 H 102 H Pulse Rate [ Right From Monitor] Respiratory 35 H 32 H 36 H Rate Blood Pressure 152/75 125/69 137/69 O2 Sat by Pulse 100 99 99 Oximetry O2 Sat by Pulse Oximetry [ Assessment] 11/29/17 11/29/17 11/29/17 07:23 08:00 08:05 Temperature 98.5 F Pulse Rate 101 H 106 H Pulse Rate [ 108 H Right From Monitor] Respiratory 35 H 20 Rate Blood Pressure 124/70 124/70 O2 Sat by Pulse 100 100 100 Oximetry O2 Sat by Pulse Oximetry [ Assessment] 11/29/17 11/29/17 11/29/17 09:00 09:59 10:00 Temperature Pulse Rate 104 H 89 94 H Pulse Rate [ 94 H Right From Monitor] Respiratory 34 H 29 H Rate Blood Pressure 139/78 121/70 O2 Sat by Pulse 100 100 Oximetry O2 Sat by Pulse Oximetry [ Assessment] 11/29/17 11/29/17 11/29/17 11:00 12:00 13:00 Temperature 98.4 F Pulse Rate 102 H 98 H 112 H Pulse Rate [ Right From Monitor] Respiratory 34 H 29 H 39 H Rate Blood Pressure 148/78 121/61 165/75 O2 Sat by Pulse 100 97 91 Oximetry O2 Sat by Pulse Oximetry [ Assessment] 11/29/17 11/29/17 11/29/17 14:00 14:03 15:58 Temperature 98.5 F Pulse Rate 109 H Pulse Rate [ Right From Monitor] Respiratory 25 H Rate Blood Pressure 156/86 O2 Sat by Pulse 99 Oximetry O2 Sat by Pulse 98 Oximetry [ Assessment] Constitutional: other (s/p trach, awake) Eyes: non-icteric ENT: oropharynx moist Neck: supple Effort: normal Ascultation: Bilateral: other (coarse BS bilaterally) Cardiovascular: regular rate and rhythm (no mrg) Gastrointestinal: normoactive bowel sounds, soft, non-tender, other (distended but better after drainage) Integumentary: normal Extremities: no cyanosis, pink and warm, anasarca Neurologic: other (L hemiparesis) Psychiatric: other (unable to assess) CBC and BMP: 11/29/17 05:25 11/29/17 05:25 ABG, PT/INR, D-dimer: ABG POC ABG pH 7.505 (7.35-7.45) H 11/23/17 04:56 POC ABG pCO2 26.3 (35-45) L 11/23/17 04:56 POC ABG pO2 100 (80-105) 11/23/17 04:56 POC ABG HCO3 20.8 11/23/17 04:56 POC ABG Total CO2 22 11/23/17 04:56 POC ABG O2 Sat 98 11/23/17 04:56 PT/INR, D-dimer PT 23.6 Sec. (12.2-14.9) H 11/26/17 06:29 INR 1.96 (0.87-1.13) H 11/26/17 06:29 Abnormal lab findings: Abnormal Labs 11/11/17 11/11/17 11/11/17 23:18 23:20 23:20 WBC RBC Hgb 10.4 L Hct 32.6 L D MCV MCH 27 L MCHC RDW 17.4 H Plt Count 105 L Lymph % (Auto) [place] % (Auto) Lymph # [place] # Seg Neutrophils % Seg Neuts % (Manual) Lymphocytes % (Manual) 8.0 L Monocytes % (Manual) Nucleated RBC % 1.0 H Seg Neutrophils # Seg Neutrophils # Man Lymphocytes # (Manual) 0.7 L Monocytes # (Manual) PT INR POC ABG pH 7.550 H POC ABG pCO2 31.6 L POC ABG pO2 Sodium 146 H Potassium Chloride Carbon Dioxide BUN 26 H Creatinine 1.7 H D Glucose 133 H POC Glucose Lactic Acid Calcium Magnesium AST ALT Alkaline Phosphatase Troponin T 0.117 H* C-Reactive Protein Total Protein Albumin 2.5 L LDL Cholesterol Direct 42 L HDL Cholesterol 24 L Hepatitis C Antibody Crossmatch 11/11/17 11/12/17 11/12/17 23:20 00:23 00:23 WBC RBC Hgb Hct MCV MCH MCHC RDW Plt Count Lymph % (Auto) [place] % (Auto) Lymph # [place] # Seg Neutrophils % Seg Neuts % (Manual) Lymphocytes % (Manual) Monocytes % (Manual) Nucleated RBC % Seg Neutrophils # Seg Neutrophils # Man Lymphocytes # (Manual) Monocytes # (Manual) PT 16.7 H INR 1.28 H POC ABG pH POC ABG pCO2 POC ABG pO2 Sodium Potassium Chloride Carbon Dioxide BUN Creatinine Glucose POC Glucose Lactic Acid 3.20 H* Calcium Magnesium AST ALT Alkaline Phosphatase Troponin T C-Reactive Protein 25.70 H Total Protein Albumin LDL Cholesterol Direct HDL Cholesterol Hepatitis C Antibody Crossmatch 11/12/17 11/12/17 11/12/17 00:46 01:27 01:27 WBC RBC Hgb Hct MCV MCH MCHC RDW Plt Count Lymph % (Auto) [place] % (Auto) Lymph # [place] # Seg Neutrophils % Seg Neuts % (Manual) Lymphocytes % (Manual) Monocytes % (Manual) Nucleated RBC % Seg Neutrophils # Seg Neutrophils # Man Lymphocytes # (Manual) Monocytes # (Manual) PT INR POC ABG pH 7.495 H POC ABG pCO2 32.0 L POC ABG pO2 64 L Sodium Potassium Chloride Carbon Dioxide BUN Creatinine Glucose POC Glucose Lactic Acid 3.70 H* Calcium Magnesium AST ALT Alkaline Phosphatase Troponin T 0.096 H C-Reactive Protein Total Protein Albumin LDL Cholesterol Direct HDL Cholesterol Hepatitis C Antibody Crossmatch 11/12/17 11/12/17 11/12/17 03:21 04:50 06:27 WBC RBC Hgb Hct MCV MCH MCHC RDW Plt Count Lymph % (Auto) [place] % (Auto) Lymph # [place] # Seg Neutrophils % Seg Neuts % (Manual) Lymphocytes % (Manual) Monocytes % (Manual) Nucleated RBC % Seg Neutrophils # Seg Neutrophils # Man Lymphocytes # (Manual) Monocytes # (Manual) PT INR POC ABG pH POC ABG pCO2 POC ABG pO2 109 H Sodium Potassium Chloride Carbon Dioxide BUN Creatinine Glucose POC Glucose Lactic Acid 3.80 H* 2.20 H* Calcium Magnesium AST ALT Alkaline Phosphatase Troponin T C-Reactive Protein Total Protein Albumin LDL Cholesterol Direct HDL Cholesterol Hepatitis C Antibody Crossmatch 11/12/17 11/12/17 11/12/17 09:24 09:24 09:24 WBC RBC Hgb 10.4 L Hct 33.4 L MCV MCH MCHC RDW Plt Count Lymph % (Auto) [place] % (Auto) Lymph # [place] # Seg Neutrophils % Seg Neuts % (Manual) Lymphocytes % (Manual) Monocytes % (Manual) Nucleated RBC % Seg Neutrophils # Seg Neutrophils # Man Lymphocytes # (Manual) Monocytes # (Manual) PT INR POC ABG pH POC ABG pCO2 POC ABG pO2 Sodium Potassium Chloride Carbon Dioxide BUN Creatinine Glucose POC Glucose Lactic Acid 2.90 H* Calcium Magnesium AST ALT Alkaline Phosphatase Troponin T 0.091 H C-Reactive Protein Total Protein Albumin LDL Cholesterol Direct HDL Cholesterol Hepatitis C Antibody Crossmatch 11/12/17 11/12/17 11/12/17 12:56 20:03 Unknown WBC RBC Hgb Hct MCV MCH MCHC RDW Plt Count Lymph % (Auto) [place] % (Auto) Lymph # [place] # Seg Neutrophils % Seg Neuts % (Manual) Lymphocytes % (Manual) Monocytes % (Manual) Nucleated RBC % Seg Neutrophils # Seg Neutrophils # Man Lymphocytes # (Manual) Monocytes # (Manual) PT INR POC ABG pH POC ABG pCO2 POC ABG pO2 Sodium Potassium Chloride Carbon Dioxide BUN Creatinine Glucose POC Glucose Lactic Acid 3.60 H* Calcium Magnesium AST ALT Alkaline Phosphatase Troponin T 0.102 H* 0.156 H* D C-Reactive Protein Total Protein Albumin LDL Cholesterol Direct HDL Cholesterol Hepatitis C Antibody Crossmatch 11/12/17 11/13/17 11/13/17 Unknown 04:50 04:50 WBC 12.2 H RBC 3.51 L Hgb 9.3 L Hct 30.1 L MCV MCH 26 L MCHC 31 L RDW 18.0 H Plt Count 128 L Lymph % (Auto) 8.6 L [place] % (Auto) 11.1 H Lymph # 1.1 L [place] # 1.4 H Seg Neutrophils % 80.1 H Seg Neuts % (Manual) Lymphocytes % (Manual) Monocytes % (Manual) Nucleated RBC % Seg Neutrophils # 9.8 H Seg Neutrophils # Man Lymphocytes # (Manual) Monocytes # (Manual) PT INR POC ABG pH POC ABG pCO2 POC ABG pO2 Sodium 149 H Potassium 5.1 H Chloride 114.4 H Carbon Dioxide 18 L BUN 52 H Creatinine 3.3 H D Glucose 129 H POC Glucose Lactic Acid Calcium 7.9 L Magnesium AST ALT Alkaline Phosphatase Troponin T 0.098 H C-Reactive Protein Total Protein Albumin LDL Cholesterol Direct HDL Cholesterol Hepatitis C Antibody Crossmatch 11/13/17 11/13/17 11/14/17 04:51 09:34 04:21 WBC RBC Hgb Hct MCV MCH MCHC RDW Plt Count Lymph % (Auto) [place] % (Auto) Lymph # [place] # Seg Neutrophils % Seg Neuts % (Manual) Lymphocytes % (Manual) Monocytes % (Manual) Nucleated RBC % Seg Neutrophils # Seg Neutrophils # Man Lymphocytes # (Manual) Monocytes # (Manual) PT INR POC ABG pH POC ABG pCO2 30.1 L 29.8 L POC ABG pO2 135 H Sodium Potassium Chloride Carbon Dioxide BUN Creatinine Glucose POC Glucose Lactic Acid 2.10 H* Calcium Magnesium AST ALT Alkaline Phosphatase Troponin T C-Reactive Protein Total Protein Albumin LDL Cholesterol Direct HDL Cholesterol Hepatitis C Antibody Crossmatch 11/15/17 11/15/17 11/16/17 04:52 15:50 05:17 WBC RBC Hgb Hct MCV MCH MCHC RDW Plt Count Lymph % (Auto) [place] % (Auto) Lymph # [place] # Seg Neutrophils % Seg Neuts % (Manual) Lymphocytes % (Manual) Monocytes % (Manual) Nucleated RBC % Seg Neutrophils # Seg Neutrophils # Man Lymphocytes # (Manual) Monocytes # (Manual) PT INR POC ABG pH POC ABG pCO2 29.5 L 31.5 L POC ABG pO2 115 H 122 H Sodium 154 H Potassium Chloride 117.9 H Carbon Dioxide 19 L BUN 87 H Creatinine 4.1 H Glucose POC Glucose Lactic Acid Calcium 8.1 L Magnesium AST ALT Alkaline Phosphatase Troponin T C-Reactive Protein Total Protein Albumin LDL Cholesterol Direct HDL Cholesterol Hepatitis C Antibody Crossmatch 11/16/17 11/17/17 11/17/17 16:37 04:07 10:00 WBC 14.7 H RBC 3.23 L Hgb 8.3 L Hct 28.1 L MCV MCH 26 L MCHC 30 L RDW 18.8 H Plt Count Lymph % (Auto) [place] % (Auto) Lymph # [place] # Seg Neutrophils % Seg Neuts % (Manual) 75 H Lymphocytes % (Manual) 8.0 L Monocytes % (Manual) Nucleated RBC % 1.0 H Seg Neutrophils # Seg Neutrophils # Man 11.0 H Lymphocytes # (Manual) Monocytes # (Manual) 0.9 H PT INR POC ABG pH POC ABG pCO2 POC ABG pO2 Sodium 153 H 155 H Potassium Chloride 117.3 H 119.4 H Carbon Dioxide 19 L 20 L BUN 90 H 89 H Creatinine 3.9 H 3.6 H Glucose 111 H 115 H POC Glucose Lactic Acid Calcium 8.1 L 8.0 L Magnesium AST ALT Alkaline Phosphatase Troponin T C-Reactive Protein Total Protein Albumin LDL Cholesterol Direct HDL Cholesterol Hepatitis C Antibody Crossmatch 11/18/17 11/18/17 11/18/17 04:34 04:34 04:34 WBC 15.5 H RBC 3.13 L Hgb 8.1 L Hct 26.3 L MCV MCH 26 L MCHC 31 L RDW 18.6 H Plt Count Lymph % (Auto) [place] % (Auto) Lymph # [place] # Seg Neutrophils % Seg Neuts % (Manual) 81.0 H Lymphocytes % (Manual) 7.0 L Monocytes % (Manual) Nucleated RBC % 1.0 H Seg Neutrophils # Seg Neutrophils # Man 12.6 H Lymphocytes # (Manual) 1.1 L Monocytes # (Manual) PT 16.7 H INR 1.30 H POC ABG pH POC ABG pCO2 POC ABG pO2 Sodium 155 H Potassium 3.2 L Chloride 121.0 H Carbon Dioxide 20 L BUN 74 H Creatinine 2.9 H Glucose 126 H POC Glucose Lactic Acid Calcium 7.9 L Magnesium AST ALT Alkaline Phosphatase Troponin T C-Reactive Protein Total Protein Albumin LDL Cholesterol Direct HDL Cholesterol Hepatitis C Antibody Crossmatch 11/19/17 11/19/17 11/20/17 04:44 04:44 00:38 WBC 19.0 H 22.2 H RBC 3.20 L 3.17 L Hgb 8.4 L 7.9 L Hct 27.9 L 26.4 L MCV 83 L MCH 26 L 25 L MCHC 30 L 30 L RDW 19.1 H 18.9 H Plt Count Lymph % (Auto) [place] % (Auto) Lymph # [place] # Seg Neutrophils % Seg Neuts % (Manual) 83.0 H Lymphocytes % (Manual) 3.0 L Monocytes % (Manual) 9.0 H Nucleated RBC % Seg Neutrophils # Seg Neutrophils # Man 18.4 H Lymphocytes # (Manual) 0.7 L Monocytes # (Manual) 2.0 H PT INR POC ABG pH POC ABG pCO2 POC ABG pO2 Sodium 152 H Potassium Chloride 117.1 H Carbon Dioxide 17 L BUN 66 H Creatinine 2.8 H Glucose 119 H POC Glucose Lactic Acid Calcium 7.8 L Magnesium 2.70 H AST ALT Alkaline Phosphatase Troponin T C-Reactive Protein Total Protein Albumin LDL Cholesterol Direct HDL Cholesterol Hepatitis C Antibody Crossmatch 11/20/17 11/20/17 11/20/17 03:29 04:48 13:38 WBC RBC Hgb Hct MCV MCH MCHC RDW Plt Count Lymph % (Auto) [place] % (Auto) Lymph # [place] # Seg Neutrophils % Seg Neuts % (Manual) Lymphocytes % (Manual) Monocytes % (Manual) Nucleated RBC % Seg Neutrophils # Seg Neutrophils # Man Lymphocytes # (Manual) Monocytes # (Manual) PT INR POC ABG pH POC ABG pCO2 29.4 L POC ABG pO2 Sodium 148 H Potassium 3.4 L Chloride 113.7 H Carbon Dioxide 18 L BUN 59 H Creatinine 2.7 H Glucose 113 H POC Glucose 128 H Lactic Acid Calcium 7.8 L Magnesium AST ALT Alkaline Phosphatase Troponin T C-Reactive Protein Total Protein Albumin LDL Cholesterol Direct HDL Cholesterol Hepatitis C Antibody Crossmatch 11/20/17 11/20/17 11/21/17 17:38 23:40 00:13 WBC RBC Hgb 8.4 L Hct 28.0 L MCV MCH MCHC RDW Plt Count Lymph % (Auto) [place] % (Auto) Lymph # [place] # Seg Neutrophils % Seg Neuts % (Manual) Lymphocytes % (Manual) Monocytes % (Manual) Nucleated RBC % Seg Neutrophils # Seg Neutrophils # Man Lymphocytes # (Manual) Monocytes # (Manual) PT INR POC ABG pH POC ABG pCO2 POC ABG pO2 Sodium Potassium Chloride Carbon Dioxide BUN Creatinine Glucose POC Glucose 115 H 145 H Lactic Acid Calcium Magnesium AST ALT Alkaline Phosphatase Troponin T C-Reactive Protein Total Protein Albumin LDL Cholesterol Direct HDL Cholesterol Hepatitis C Antibody Crossmatch 11/21/17 11/21/17 11/21/17 04:30 04:30 04:58 WBC 21.0 H RBC Hgb 9.6 L Hct 32.7 L MCV MCH 25 L MCHC 29 L RDW 19.7 H Plt Count 746 H Lymph % (Auto) [place] % (Auto) Lymph # [place] # Seg Neutrophils % Seg Neuts % (Manual) Lymphocytes % (Manual) Monocytes % (Manual) Nucleated RBC % Seg Neutrophils # Seg Neutrophils # Man Lymphocytes # (Manual) Monocytes # (Manual) PT INR POC ABG pH POC ABG pCO2 POC ABG pO2 Sodium Potassium Chloride 109.4 H Carbon Dioxide 14 L BUN 59 H Creatinine 3.0 H Glucose 137 H POC Glucose 132 H Lactic Acid Calcium 7.6 L Magnesium AST ALT Alkaline Phosphatase Troponin T C-Reactive Protein Total Protein Albumin LDL Cholesterol Direct HDL Cholesterol Hepatitis C Antibody Crossmatch 11/21/17 11/21/17 11/21/17 06:30 13:43 14:17 WBC 38.2 H RBC Hgb 9.0 L Hct 32.3 L MCV MCH 25 L MCHC 28 L RDW 20.0 H Plt Count 766 H Lymph % (Auto) [place] % (Auto) Lymph # [place] # Seg Neutrophils % Seg Neuts % (Manual) 85.0 H Lymphocytes % (Manual) 1.0 L Monocytes % (Manual) Nucleated RBC % 2.0 H Seg Neutrophils # Seg Neutrophils # Man 32.5 H Lymphocytes # (Manual) 0.4 L Monocytes # (Manual) 2.3 H PT INR POC ABG pH POC ABG pCO2 18.6 L POC ABG pO2 121 H Sodium 146 H Potassium Chloride 110.9 H Carbon Dioxide 11 L BUN 62 H Creatinine 4.0 H Glucose 64 L POC Glucose Lactic Acid Calcium 7.6 L Magnesium AST ALT Alkaline Phosphatase Troponin T C-Reactive Protein Total Protein Albumin LDL Cholesterol Direct HDL Cholesterol Hepatitis C Antibody Crossmatch 11/21/17 11/21/17 11/22/17 14:17 19:09 00:05 WBC RBC Hgb Hct MCV MCH MCHC RDW Plt Count Lymph % (Auto) [place] % (Auto) Lymph # [place] # Seg Neutrophils % Seg Neuts % (Manual) Lymphocytes % (Manual) Monocytes % (Manual) Nucleated RBC % Seg Neutrophils # Seg Neutrophils # Man Lymphocytes # (Manual) Monocytes # (Manual) PT INR POC ABG pH POC ABG pCO2 20.0 L POC ABG pO2 Sodium Potassium Chloride Carbon Dioxide BUN Creatinine Glucose POC Glucose 127 H Lactic Acid 7.70 H* Calcium Magnesium AST ALT Alkaline Phosphatase Troponin T C-Reactive Protein Total Protein Albumin LDL Cholesterol Direct HDL Cholesterol Hepatitis C Antibody Crossmatch 11/22/17 11/22/17 11/22/17 03:53 06:00 07:25 WBC RBC Hgb Hct MCV MCH MCHC RDW Plt Count Lymph % (Auto) [place] % (Auto) Lymph # [place] # Seg Neutrophils % Seg Neuts % (Manual) Lymphocytes % (Manual) Monocytes % (Manual) Nucleated RBC % Seg Neutrophils # Seg Neutrophils # Man Lymphocytes # (Manual) Monocytes # (Manual) PT INR POC ABG pH POC ABG pCO2 22.2 L POC ABG pO2 Sodium 147 H Potassium Chloride 111.9 H Carbon Dioxide 16 L BUN 72 H Creatinine 5.1 H Glucose 181 H POC Glucose 180 H Lactic Acid Calcium 7.1 L Magnesium AST ALT Alkaline Phosphatase Troponin T C-Reactive Protein Total Protein Albumin LDL Cholesterol Direct HDL Cholesterol Hepatitis C Antibody Crossmatch 11/22/17 11/22/17 11/22/17 07:25 07:25 12:05 WBC 31.4 H RBC 3.22 L Hgb 8.0 L Hct 26.7 L MCV 83 L MCH 25 L MCHC 30 L RDW 19.4 H Plt Count 602 H Lymph % (Auto) [place] % (Auto) Lymph # [place] # Seg Neutrophils % Seg Neuts % (Manual) Lymphocytes % (Manual) Monocytes % (Manual) Nucleated RBC % Seg Neutrophils # Seg Neutrophils # Man Lymphocytes # (Manual) Monocytes # (Manual) PT INR POC ABG pH POC ABG pCO2 POC ABG pO2 Sodium Potassium Chloride Carbon Dioxide BUN Creatinine Glucose POC Glucose 182 H Lactic Acid 5.00 H* Calcium Magnesium AST ALT Alkaline Phosphatase Troponin T C-Reactive Protein Total Protein Albumin LDL Cholesterol Direct HDL Cholesterol Hepatitis C Antibody Crossmatch 11/22/17 11/23/17 11/23/17 19:45 01:28 04:56 WBC RBC Hgb Hct MCV MCH MCHC RDW Plt Count Lymph % (Auto) [place] % (Auto) Lymph # [place] # Seg Neutrophils % Seg Neuts % (Manual) Lymphocytes % (Manual) Monocytes % (Manual) Nucleated RBC % Seg Neutrophils # Seg Neutrophils # Man Lymphocytes # (Manual) Monocytes # (Manual) PT INR POC ABG pH 7.505 H POC ABG pCO2 26.3 L POC ABG pO2 Sodium Potassium Chloride Carbon Dioxide BUN Creatinine Glucose POC Glucose 165 H Lactic Acid Calcium Magnesium AST ALT Alkaline Phosphatase Troponin T C-Reactive Protein Total Protein Albumin LDL Cholesterol Direct HDL Cholesterol Hepatitis C Antibody Reactive A Crossmatch 11/23/17 11/23/17 11/23/17 07:05 12:32 17:53 WBC RBC Hgb Hct MCV MCH MCHC RDW Plt Count Lymph % (Auto) [place] % (Auto) Lymph # [place] # Seg Neutrophils % Seg Neuts % (Manual) Lymphocytes % (Manual) Monocytes % (Manual) Nucleated RBC % Seg Neutrophils # Seg Neutrophils # Man Lymphocytes # (Manual) Monocytes # (Manual) PT INR POC ABG pH POC ABG pCO2 POC ABG pO2 Sodium Potassium Chloride Carbon Dioxide 18 L BUN 61 H Creatinine 4.2 H Glucose 153 H POC Glucose 138 H 173 H Lactic Acid Calcium 7.5 L Magnesium AST ALT Alkaline Phosphatase Troponin T C-Reactive Protein Total Protein Albumin LDL Cholesterol Direct HDL Cholesterol Hepatitis C Antibody Crossmatch 11/23/17 11/24/17 11/24/17 23:41 05:42 05:42 WBC 21.5 H RBC 2.48 L Hgb 6.2 L Hct 20.3 L D MCV 82 L MCH 25 L MCHC 31 L RDW 18.9 H Plt Count Lymph % (Auto) [place] % (Auto) Lymph # [place] # Seg Neutrophils % Seg Neuts % (Manual) 94.0 H Lymphocytes % (Manual) 3.0 L Monocytes % (Manual) Nucleated RBC % Seg Neutrophils # Seg Neutrophils # Man 20.2 H Lymphocytes # (Manual) 0.6 L Monocytes # (Manual) PT INR POC ABG pH POC ABG pCO2 POC ABG pO2 Sodium 149 H Potassium 2.8 L* D Chloride 113.9 H Carbon Dioxide 19 L BUN 31 H Creatinine 2.3 H Glucose 103 H POC Glucose 133 H Lactic Acid Calcium 5.3 L* D Magnesium 1.30 L AST ALT Alkaline Phosphatase Troponin T C-Reactive Protein Total Protein Albumin LDL Cholesterol Direct HDL Cholesterol Hepatitis C Antibody Crossmatch 11/24/17 11/24/17 11/24/17 05:42 08:27 08:27 WBC RBC Hgb Hct MCV MCH MCHC RDW Plt Count Lymph % (Auto) [place] % (Auto) Lymph # [place] # Seg Neutrophils % Seg Neuts % (Manual) Lymphocytes % (Manual) Monocytes % (Manual) Nucleated RBC % Seg Neutrophils # Seg Neutrophils # Man Lymphocytes # (Manual) Monocytes # (Manual) PT INR POC ABG pH POC ABG pCO2 POC ABG pO2 Sodium Potassium Chloride Carbon Dioxide BUN Creatinine Glucose POC Glucose Lactic Acid 5.40 H* 5.20 H* Calcium Magnesium AST ALT Alkaline Phosphatase Troponin T C-Reactive Protein Total Protein Albumin LDL Cholesterol Direct HDL Cholesterol Hepatitis C Antibody Crossmatch See Detail 11/24/17 11/24/17 11/24/17 12:13 17:22 21:53 WBC 23.0 H RBC 3.32 L Hgb 8.8 L Hct 27.1 L D MCV 82 L MCH 26 L MCHC RDW 17.3 H Plt Count Lymph % (Auto) [place] % (Auto) Lymph # [place] # Seg Neutrophils % Seg Neuts % (Manual) Lymphocytes % (Manual) Monocytes % (Manual) Nucleated RBC % Seg Neutrophils # Seg Neutrophils # Man Lymphocytes # (Manual) Monocytes # (Manual) PT INR POC ABG pH POC ABG pCO2 POC ABG pO2 Sodium Potassium Chloride Carbon Dioxide BUN Creatinine Glucose POC Glucose 138 H 180 H Lactic Acid Calcium Magnesium AST ALT Alkaline Phosphatase Troponin T C-Reactive Protein Total Protein Albumin LDL Cholesterol Direct HDL Cholesterol Hepatitis C Antibody Crossmatch 11/24/17 11/24/17 11/25/17 21:53 23:28 04:19 WBC RBC Hgb Hct MCV MCH MCHC RDW Plt Count Lymph % (Auto) [place] % (Auto) Lymph # [place] # Seg Neutrophils % Seg Neuts % (Manual) Lymphocytes % (Manual) Monocytes % (Manual) Nucleated RBC % Seg Neutrophils # Seg Neutrophils # Man Lymphocytes # (Manual) Monocytes # (Manual) PT INR POC ABG pH POC ABG pCO2 POC ABG pO2 Sodium Potassium Chloride 96.3 L Carbon Dioxide BUN 28 H 31 H Creatinine 2.3 H 2.6 H Glucose 125 H 101 H POC Glucose 111 H Lactic Acid Calcium 7.5 L D 7.4 L Magnesium AST 170 H ALT 179 H Alkaline Phosphatase 175 H Troponin T C-Reactive Protein Total Protein 5.5 L Albumin 1.8 L LDL Cholesterol Direct HDL Cholesterol Hepatitis C Antibody Crossmatch 11/25/17 11/25/17 11/26/17 04:19 04:19 06:29 WBC 22.5 H RBC 3.48 L Hgb 9.1 L Hct 28.3 L MCV 81 L MCH 26 L MCHC RDW 17.4 H Plt Count Lymph % (Auto) [place] % (Auto) Lymph # [place] # Seg Neutrophils % Seg Neuts % (Manual) Lymphocytes % (Manual) Monocytes % (Manual) Nucleated RBC % Seg Neutrophils # Seg Neutrophils # Man Lymphocytes # (Manual) Monocytes # (Manual) PT 23.6 H INR 1.96 H POC ABG pH POC ABG pCO2 POC ABG pO2 Sodium Potassium Chloride Carbon Dioxide BUN 31 H Creatinine 2.6 H Glucose 101 H POC Glucose Lactic Acid Calcium 7.5 L Magnesium AST ALT Alkaline Phosphatase Troponin T C-Reactive Protein Total Protein Albumin LDL Cholesterol Direct HDL Cholesterol Hepatitis C Antibody Crossmatch 11/26/17 11/27/17 11/27/17 06:34 04:06 04:06 WBC 11.3 H RBC 3.13 L Hgb 8.4 L Hct 25.8 L MCV 82 L MCH 27 L MCHC RDW 17.7 H Plt Count Lymph % (Auto) 7.4 L [place] % (Auto) Lymph # 0.8 L [place] # Seg Neutrophils % 83.7 H Seg Neuts % (Manual) Lymphocytes % (Manual) Monocytes % (Manual) Nucleated RBC % Seg Neutrophils # 9.5 H Seg Neutrophils # Man Lymphocytes # (Manual) Monocytes # (Manual) PT INR POC ABG pH POC ABG pCO2 POC ABG pO2 Sodium Potassium Chloride 97.9 L Carbon Dioxide BUN 43 H 29 H Creatinine 3.5 H 2.9 H Glucose POC Glucose Lactic Acid Calcium 7.5 L 8.1 L Magnesium AST ALT Alkaline Phosphatase Troponin T C-Reactive Protein Total Protein Albumin LDL Cholesterol Direct HDL Cholesterol Hepatitis C Antibody Crossmatch 11/27/17 11/28/17 11/28/17 18:11 00:16 03:50 WBC RBC Hgb Hct MCV MCH MCHC RDW Plt Count Lymph % (Auto) [place] % (Auto) Lymph # [place] # Seg Neutrophils % Seg Neuts % (Manual) Lymphocytes % (Manual) Monocytes % (Manual) Nucleated RBC % Seg Neutrophils # Seg Neutrophils # Man Lymphocytes # (Manual) Monocytes # (Manual) PT INR POC ABG pH POC ABG pCO2 POC ABG pO2 Sodium Potassium Chloride Carbon Dioxide BUN 39 H Creatinine 4.1 H Glucose 108 H POC Glucose 110 H 124 H Lactic Acid Calcium 7.9 L Magnesium AST ALT Alkaline Phosphatase Troponin T C-Reactive Protein Total Protein Albumin LDL Cholesterol Direct HDL Cholesterol Hepatitis C Antibody Crossmatch 11/28/17 11/28/17 11/28/17 05:03 11:36 17:42 WBC RBC Hgb Hct MCV MCH MCHC RDW Plt Count Lymph % (Auto) [place] % (Auto) Lymph # [place] # Seg Neutrophils % Seg Neuts % (Manual) Lymphocytes % (Manual) Monocytes % (Manual) Nucleated RBC % Seg Neutrophils # Seg Neutrophils # Man Lymphocytes # (Manual) Monocytes # (Manual) PT INR POC ABG pH POC ABG pCO2 POC ABG pO2 Sodium Potassium Chloride Carbon Dioxide BUN Creatinine Glucose POC Glucose 134 H 114 H 119 H Lactic Acid Calcium Magnesium AST ALT Alkaline Phosphatase Troponin T C-Reactive Protein Total Protein Albumin LDL Cholesterol Direct HDL Cholesterol Hepatitis C Antibody Crossmatch 11/29/17 11/29/17 11/29/17 00:22 05:25 05:25 WBC 12.3 H RBC 3.34 L Hgb 8.6 L Hct 27.3 L MCV 82 L MCH 26 L MCHC RDW 18.5 H Plt Count Lymph % (Auto) 3.7 L [place] % (Auto) 7.7 H Lymph # 0.5 L [place] # 1.0 H Seg Neutrophils % 86.5 H Seg Neuts % (Manual) Lymphocytes % (Manual) Monocytes % (Manual) Nucleated RBC % Seg Neutrophils # 10.7 H Seg Neutrophils # Man Lymphocytes # (Manual) Monocytes # (Manual) PT INR POC ABG pH POC ABG pCO2 POC ABG pO2 Sodium Potassium Chloride Carbon Dioxide BUN 29 H Creatinine 3.5 H Glucose 109 H POC Glucose 137 H Lactic Acid Calcium 7.8 L Magnesium AST ALT Alkaline Phosphatase Troponin T C-Reactive Protein Total Protein Albumin LDL Cholesterol Direct HDL Cholesterol Hepatitis C Antibody Crossmatch 11/29/17 05:26 WBC RBC Hgb Hct MCV MCH MCHC RDW Plt Count Lymph % (Auto) [place] % (Auto) Lymph # [place] # Seg Neutrophils % Seg Neuts % (Manual) Lymphocytes % (Manual) Monocytes % (Manual) Nucleated RBC % Seg Neutrophils # Seg Neutrophils # Man Lymphocytes # (Manual) Monocytes # (Manual) PT INR POC ABG pH POC ABG pCO2 POC ABG pO2 Sodium Potassium Chloride Carbon Dioxide BUN Creatinine Glucose POC Glucose 129 H Lactic Acid Calcium Magnesium AST ALT Alkaline Phosphatase Troponin T C-Reactive Protein Total Protein Albumin LDL Cholesterol Direct HDL Cholesterol Hepatitis C Antibody Crossmatch Chest x-ray: report reviewed, image reviewed
[2017-11-29] MEDS ORDERED: MAXIPIME/NS 2 GM/100 ML 2 GM/100 ML BAG IV SCH (17:00)
[2017-11-29] MEDS ORDERED: MAXIPIME/NS 1 GM/100 ML 1 GM/100 ML BAG IV SCH (20:00)
[2017-11-30 05:22] LABS: Calcium 7.8 mg/dL (8.4-10.2)
[2017-11-30] MEDS ORDERED: SIMPLE SYRUP FEEDTUBE PRN ×2 (09:16)
[2017-11-30] MEDS ORDERED: SODIUM BICARBONATE FEEDTUBE PRN (09:16)
[2017-11-30] MEDS ORDERED: PANCREAZE DR 10,500 UNIT FEEDTUBE PRN (09:16)
--- NOTE | 2017-11-30 09:40 | Progress Note ---
Assessment and Plan Assessment * Acute kidney injury secondary to ATN --Intermittent HD started on 11/23/17 * Sepsis secondary to peritonitis/PEG malpositioning --RUQ/LUQ drains: Enterobacter, [place] (non albicans) * Aspiration pneumonitis related to above * Anemia * Acute CVA * Carotid artery disease s/p CEA * Encephalopathy Plan: * No evidence of renal recovery * Continue HD MWF. UF as tolerated * Abx per primary team * IR and surgery notes reviewed * Consider ID consultation * Strict I/O * Avoid potential nephrptoxins * Dose medications for renal function * Replete lytes prn * Avoid nephrotoxins Subjective Date of service: 11/30/17 Principal diagnosis: Acute hypoxic respiratory failure due to Pneumonia on MV> 96 hours s/p Trach Objective - Vital Signs Vital signs: Vital Signs - 12hr 11/29/17 11/29/17 11/29/17 22:00 23:00 23:12 Temperature Pulse Rate 91 H 112 H 113 H Respiratory 31 H 38 H 23 Rate Blood Pressure 135/70 145/81 124/71 O2 Sat by Pulse 99 100 100 Oximetry O2 Sat by Pulse Oximetry [ Assessment] 11/30/17 11/30/17 11/30/17 00:00 00:40 01:00 Temperature 98.4 F Pulse Rate 101 H 108 H Respiratory 34 H Rate Blood Pressure 123/71 149/80 O2 Sat by Pulse 96 100 Oximetry O2 Sat by Pulse 100 Oximetry [ Assessment] 11/30/17 11/30/17 11/30/17 02:00 03:00 04:00 Temperature 98.8 F Pulse Rate 113 H 111 H 91 H Respiratory 38 H 43 H 31 H Rate Blood Pressure 159/87 163/84 129/65 O2 Sat by Pulse 100 100 99 Oximetry O2 Sat by Pulse Oximetry [ Assessment] 11/30/17 11/30/17 11/30/17 05:00 06:00 07:00 Temperature Pulse Rate 104 H 109 H 94 H Respiratory 38 H 37 H 27 H Rate Blood Pressure 135/71 159/85 129/68 O2 Sat by Pulse 99 100 96 Oximetry O2 Sat by Pulse Oximetry [ Assessment] 11/30/17 11/30/17 11/30/17 07:30 08:00 09:00 Temperature 97.7 F Pulse Rate 112 H 102 H Respiratory 37 H 33 H Rate Blood Pressure 155/84 169/89 O2 Sat by Pulse 99 99 100 Oximetry O2 Sat by Pulse Oximetry [ Assessment] 11/30/17 09:15 Temperature Pulse Rate 99 H Respiratory 32 H Rate Blood Pressure 136/76 O2 Sat by Pulse 100 Oximetry O2 Sat by Pulse Oximetry [ Assessment] - Lab 11/29/17 05:25 11/30/17 04:17 Most recent lab results Calcium 7.8 mg/dL (8.4-10.2) L 11/30/17 04:17 Magnesium 2.00 mg/dL (1.7-2.3) 11/24/17 21:53
--- NOTE | 2017-11-30 10:59 | Progress Note ---
Assessment and Plan 67 y/o male with acute on chronic respiratory failure, now trached, with peritonitis from dislodged peg tube s/p 2 IR drains now with NGT feedings. 1. Asked nursing to share concerns with surgery. Did not want to take dressing down multiple times 2. ENT may downsize trach soon per report 3. Placement once able to use peg and remover NG tube 4. Ok to remove vent from room 5. Will continue to follow Subjective Date of service: 11/30/17 Principal diagnosis: Acute hypoxic respiratory failure due to Pneumonia on MV> 96 hours s/p Trach Interval history: No acute events. Per nursing, while feeds are running, still some drainage around peg site despite using the NG tube. Currently on HD. Objective Vital Signs - 12hr 11/29/17 11/29/17 11/30/17 23:00 23:12 00:00 Temperature 98.4 F Pulse Rate 112 H 113 H 101 H Respiratory 38 H 23 34 H Rate Blood Pressure 145/81 124/71 123/71 O2 Sat by Pulse 100 100 96 Oximetry O2 Sat by Pulse Oximetry [ Assessment] O2 Sat by Pulse Oximetry [ Bilateral Throughout] 11/30/17 11/30/17 11/30/17 00:40 01:00 02:00 Temperature Pulse Rate 108 H 113 H Respiratory 38 H Rate Blood Pressure 149/80 159/87 O2 Sat by Pulse 100 100 Oximetry O2 Sat by Pulse 100 Oximetry [ Assessment] O2 Sat by Pulse Oximetry [ Bilateral Throughout] 11/30/17 11/30/17 11/30/17 03:00 04:00 05:00 Temperature 98.8 F Pulse Rate 111 H 91 H 104 H Respiratory 43 H 31 H 38 H Rate Blood Pressure 163/84 129/65 135/71 O2 Sat by Pulse 100 99 99 Oximetry O2 Sat by Pulse Oximetry [ Assessment] O2 Sat by Pulse Oximetry [ Bilateral Throughout] 11/30/17 11/30/17 11/30/17 06:00 07:00 07:30 Temperature Pulse Rate 109 H 94 H Respiratory 37 H 27 H Rate Blood Pressure 159/85 129/68 O2 Sat by Pulse 100 96 99 Oximetry O2 Sat by Pulse Oximetry [ Assessment] O2 Sat by Pulse Oximetry [ Bilateral Throughout] 11/30/17 11/30/17 11/30/17 08:00 08:55 09:00 Temperature 97.7 F 97.7 F Pulse Rate 112 H 98 H 102 H Respiratory 37 H 32 H 33 H Rate Blood Pressure 155/84 136/70 169/89 O2 Sat by Pulse 99 100 Oximetry O2 Sat by Pulse Oximetry [ Assessment] O2 Sat by Pulse 100 Oximetry [ Bilateral Throughout] 11/30/17 11/30/17 11/30/17 09:15 09:30 09:45 Temperature Pulse Rate 99 H 90 103 H Respiratory 32 H 36 H 28 H Rate Blood Pressure 136/76 124/68 128/77 O2 Sat by Pulse 100 100 100 Oximetry O2 Sat by Pulse Oximetry [ Assessment] O2 Sat by Pulse Oximetry [ Bilateral Throughout] 11/30/17 11/30/17 11/30/17 10:00 10:15 10:30 Temperature Pulse Rate 99 H 110 H 88 Respiratory 27 H 16 25 H Rate Blood Pressure 138/77 157/92 120/79 O2 Sat by Pulse 99 100 100 Oximetry O2 Sat by Pulse Oximetry [ Assessment] O2 Sat by Pulse Oximetry [ Bilateral Throughout] 11/30/17 10:45 Temperature Pulse Rate 111 H Respiratory 33 H Rate Blood Pressure 150/91 O2 Sat by Pulse 100 Oximetry O2 Sat by Pulse Oximetry [ Assessment] O2 Sat by Pulse Oximetry [ Bilateral Throughout] Constitutional: other (s/p trach, awake) Eyes: non-icteric ENT: oropharynx moist Neck: supple Effort: normal Ascultation: Bilateral: clear, rhonchi (sporadic), other (coarse BS bilaterally) Cardiovascular: regular rate and rhythm (no mrg) Gastrointestinal: normoactive bowel sounds, soft, non-tender, other (distended but better after drainage) Integumentary: normal Extremities: no cyanosis, pink and warm, anasarca Neurologic: other (L hemiparesis) Psychiatric: other (unable to assess) CBC and BMP: 11/29/17 05:25 11/30/17 04:17 ABG, PT/INR, D-dimer: ABG POC ABG pH 7.505 (7.35-7.45) H 11/23/17 04:56 POC ABG pCO2 26.3 (35-45) L 11/23/17 04:56 POC ABG pO2 100 (80-105) 11/23/17 04:56 POC ABG HCO3 20.8 11/23/17 04:56 POC ABG Total CO2 22 11/23/17 04:56 POC ABG O2 Sat 98 11/23/17 04:56 PT/INR, D-dimer PT 23.6 Sec. (12.2-14.9) H 11/26/17 06:29 INR 1.96 (0.87-1.13) H 11/26/17 06:29 Abnormal lab findings: Abnormal Labs 11/11/17 11/11/17 11/11/17 23:18 23:20 23:20 WBC RBC Hgb 10.4 L Hct 32.6 L D MCV MCH 27 L MCHC RDW 17.4 H Plt Count 105 L Lymph % (Auto) [place] % (Auto) Lymph # [place] # Seg Neutrophils % Seg Neuts % (Manual) Lymphocytes % (Manual) 8.0 L Monocytes % (Manual) Nucleated RBC % 1.0 H Seg Neutrophils # Seg Neutrophils # Man Lymphocytes # (Manual) 0.7 L Monocytes # (Manual) PT INR POC ABG pH 7.550 H POC ABG pCO2 31.6 L POC ABG pO2 Sodium 146 H Potassium Chloride Carbon Dioxide BUN 26 H Creatinine 1.7 H D Glucose 133 H POC Glucose Lactic Acid Calcium Magnesium AST ALT Alkaline Phosphatase Troponin T 0.117 H* C-Reactive Protein Total Protein Albumin 2.5 L LDL Cholesterol Direct 42 L HDL Cholesterol 24 L Hepatitis C Antibody Crossmatch 11/11/17 11/12/17 11/12/17 23:20 00:23 00:23 WBC RBC Hgb Hct MCV MCH MCHC RDW Plt Count Lymph % (Auto) [place] % (Auto) Lymph # [place] # Seg Neutrophils % Seg Neuts % (Manual) Lymphocytes % (Manual) Monocytes % (Manual) Nucleated RBC % Seg Neutrophils # Seg Neutrophils # Man Lymphocytes # (Manual) Monocytes # (Manual) PT 16.7 H INR 1.28 H POC ABG pH POC ABG pCO2 POC ABG pO2 Sodium Potassium Chloride Carbon Dioxide BUN Creatinine Glucose POC Glucose Lactic Acid 3.20 H* Calcium Magnesium AST ALT Alkaline Phosphatase Troponin T C-Reactive Protein 25.70 H Total Protein Albumin LDL Cholesterol Direct HDL Cholesterol Hepatitis C Antibody Crossmatch 11/12/17 11/12/17 11/12/17 00:46 01:27 01:27 WBC RBC Hgb Hct MCV MCH MCHC RDW Plt Count Lymph % (Auto) [place] % (Auto) Lymph # [place] # Seg Neutrophils % Seg Neuts % (Manual) Lymphocytes % (Manual) Monocytes % (Manual) Nucleated RBC % Seg Neutrophils # Seg Neutrophils # Man Lymphocytes # (Manual) Monocytes # (Manual) PT INR POC ABG pH 7.495 H POC ABG pCO2 32.0 L POC ABG pO2 64 L Sodium Potassium Chloride Carbon Dioxide BUN Creatinine Glucose POC Glucose Lactic Acid 3.70 H* Calcium Magnesium AST ALT Alkaline Phosphatase Troponin T 0.096 H C-Reactive Protein Total Protein Albumin LDL Cholesterol Direct HDL Cholesterol Hepatitis C Antibody Crossmatch 11/12/17 11/12/17 11/12/17 03:21 04:50 06:27 WBC RBC Hgb Hct MCV MCH MCHC RDW Plt Count Lymph % (Auto) [place] % (Auto) Lymph # [place] # Seg Neutrophils % Seg Neuts % (Manual) Lymphocytes % (Manual) Monocytes % (Manual) Nucleated RBC % Seg Neutrophils # Seg Neutrophils # Man Lymphocytes # (Manual) Monocytes # (Manual) PT INR POC ABG pH POC ABG pCO2 POC ABG pO2 109 H Sodium Potassium Chloride Carbon Dioxide BUN Creatinine Glucose POC Glucose Lactic Acid 3.80 H* 2.20 H* Calcium Magnesium AST ALT Alkaline Phosphatase Troponin T C-Reactive Protein Total Protein Albumin LDL Cholesterol Direct HDL Cholesterol Hepatitis C Antibody Crossmatch 11/12/17 11/12/17 11/12/17 09:24 09:24 09:24 WBC RBC Hgb 10.4 L Hct 33.4 L MCV MCH MCHC RDW Plt Count Lymph % (Auto) [place] % (Auto) Lymph # [place] # Seg Neutrophils % Seg Neuts % (Manual) Lymphocytes % (Manual) Monocytes % (Manual) Nucleated RBC % Seg Neutrophils # Seg Neutrophils # Man Lymphocytes # (Manual) Monocytes # (Manual) PT INR POC ABG pH POC ABG pCO2 POC ABG pO2 Sodium Potassium Chloride Carbon Dioxide BUN Creatinine Glucose POC Glucose Lactic Acid 2.90 H* Calcium Magnesium AST ALT Alkaline Phosphatase Troponin T 0.091 H C-Reactive Protein Total Protein Albumin LDL Cholesterol Direct HDL Cholesterol Hepatitis C Antibody Crossmatch 11/12/17 11/12/17 11/12/17 12:56 20:03 Unknown WBC RBC Hgb Hct MCV MCH MCHC RDW Plt Count Lymph % (Auto) [place] % (Auto) Lymph # [place] # Seg Neutrophils % Seg Neuts % (Manual) Lymphocytes % (Manual) Monocytes % (Manual) Nucleated RBC % Seg Neutrophils # Seg Neutrophils # Man Lymphocytes # (Manual) Monocytes # (Manual) PT INR POC ABG pH POC ABG pCO2 POC ABG pO2 Sodium Potassium Chloride Carbon Dioxide BUN Creatinine Glucose POC Glucose Lactic Acid 3.60 H* Calcium Magnesium AST ALT Alkaline Phosphatase Troponin T 0.102 H* 0.156 H* D C-Reactive Protein Total Protein Albumin LDL Cholesterol Direct HDL Cholesterol Hepatitis C Antibody Crossmatch 11/12/17 11/13/17 11/13/17 Unknown 04:50 04:50 WBC 12.2 H RBC 3.51 L Hgb 9.3 L Hct 30.1 L MCV MCH 26 L MCHC 31 L RDW 18.0 H Plt Count 128 L Lymph % (Auto) 8.6 L [place] % (Auto) 11.1 H Lymph # 1.1 L [place] # 1.4 H Seg Neutrophils % 80.1 H Seg Neuts % (Manual) Lymphocytes % (Manual) Monocytes % (Manual) Nucleated RBC % Seg Neutrophils # 9.8 H Seg Neutrophils # Man Lymphocytes # (Manual) Monocytes # (Manual) PT INR POC ABG pH POC ABG pCO2 POC ABG pO2 Sodium 149 H Potassium 5.1 H Chloride 114.4 H Carbon Dioxide 18 L BUN 52 H Creatinine 3.3 H D Glucose 129 H POC Glucose Lactic Acid Calcium 7.9 L Magnesium AST ALT Alkaline Phosphatase Troponin T 0.098 H C-Reactive Protein Total Protein Albumin LDL Cholesterol Direct HDL Cholesterol Hepatitis C Antibody Crossmatch 11/13/17 11/13/17 11/14/17 04:51 09:34 04:21 WBC RBC Hgb Hct MCV MCH MCHC RDW Plt Count Lymph % (Auto) [place] % (Auto) Lymph # [place] # Seg Neutrophils % Seg Neuts % (Manual) Lymphocytes % (Manual) Monocytes % (Manual) Nucleated RBC % Seg Neutrophils # Seg Neutrophils # Man Lymphocytes # (Manual) Monocytes # (Manual) PT INR POC ABG pH POC ABG pCO2 30.1 L 29.8 L POC ABG pO2 135 H Sodium Potassium Chloride Carbon Dioxide BUN Creatinine Glucose POC Glucose Lactic Acid 2.10 H* Calcium Magnesium AST ALT Alkaline Phosphatase Troponin T C-Reactive Protein Total Protein Albumin LDL Cholesterol Direct HDL Cholesterol Hepatitis C Antibody Crossmatch 11/15/17 11/15/17 11/16/17 04:52 15:50 05:17 WBC RBC Hgb Hct MCV MCH MCHC RDW Plt Count Lymph % (Auto) [place] % (Auto) Lymph # [place] # Seg Neutrophils % Seg Neuts % (Manual) Lymphocytes % (Manual) Monocytes % (Manual) Nucleated RBC % Seg Neutrophils # Seg Neutrophils # Man Lymphocytes # (Manual) Monocytes # (Manual) PT INR POC ABG pH POC ABG pCO2 29.5 L 31.5 L POC ABG pO2 115 H 122 H Sodium 154 H Potassium Chloride 117.9 H Carbon Dioxide 19 L BUN 87 H Creatinine 4.1 H Glucose POC Glucose Lactic Acid Calcium 8.1 L Magnesium AST ALT Alkaline Phosphatase Troponin T C-Reactive Protein Total Protein Albumin LDL Cholesterol Direct HDL Cholesterol Hepatitis C Antibody Crossmatch 11/16/17 11/17/17 11/17/17 16:37 04:07 10:00 WBC 14.7 H RBC 3.23 L Hgb 8.3 L Hct 28.1 L MCV MCH 26 L MCHC 30 L RDW 18.8 H Plt Count Lymph % (Auto) [place] % (Auto) Lymph # [place] # Seg Neutrophils % Seg Neuts % (Manual) 75 H Lymphocytes % (Manual) 8.0 L Monocytes % (Manual) Nucleated RBC % 1.0 H Seg Neutrophils # Seg Neutrophils # Man 11.0 H Lymphocytes # (Manual) Monocytes # (Manual) 0.9 H PT INR POC ABG pH POC ABG pCO2 POC ABG pO2 Sodium 153 H 155 H Potassium Chloride 117.3 H 119.4 H Carbon Dioxide 19 L 20 L BUN 90 H 89 H Creatinine 3.9 H 3.6 H Glucose 111 H 115 H POC Glucose Lactic Acid Calcium 8.1 L 8.0 L Magnesium AST ALT Alkaline Phosphatase Troponin T C-Reactive Protein Total Protein Albumin LDL Cholesterol Direct HDL Cholesterol Hepatitis C Antibody Crossmatch 11/18/17 11/18/17 11/18/17 04:34 04:34 04:34 WBC 15.5 H RBC 3.13 L Hgb 8.1 L Hct 26.3 L MCV MCH 26 L MCHC 31 L RDW 18.6 H Plt Count Lymph % (Auto) [place] % (Auto) Lymph # [place] # Seg Neutrophils % Seg Neuts % (Manual) 81.0 H Lymphocytes % (Manual) 7.0 L Monocytes % (Manual) Nucleated RBC % 1.0 H Seg Neutrophils # Seg Neutrophils # Man 12.6 H Lymphocytes # (Manual) 1.1 L Monocytes # (Manual) PT 16.7 H INR 1.30 H POC ABG pH POC ABG pCO2 POC ABG pO2 Sodium 155 H Potassium 3.2 L Chloride 121.0 H Carbon Dioxide 20 L BUN 74 H Creatinine 2.9 H Glucose 126 H POC Glucose Lactic Acid Calcium 7.9 L Magnesium AST ALT Alkaline Phosphatase Troponin T C-Reactive Protein Total Protein Albumin LDL Cholesterol Direct HDL Cholesterol Hepatitis C Antibody Crossmatch 11/19/17 11/19/17 11/20/17 04:44 04:44 00:38 WBC 19.0 H 22.2 H RBC 3.20 L 3.17 L Hgb 8.4 L 7.9 L Hct 27.9 L 26.4 L MCV 83 L MCH 26 L 25 L MCHC 30 L 30 L RDW 19.1 H 18.9 H Plt Count Lymph % (Auto) [place] % (Auto) Lymph # [place] # Seg Neutrophils % Seg Neuts % (Manual) 83.0 H Lymphocytes % (Manual) 3.0 L Monocytes % (Manual) 9.0 H Nucleated RBC % Seg Neutrophils # Seg Neutrophils # Man 18.4 H Lymphocytes # (Manual) 0.7 L Monocytes # (Manual) 2.0 H PT INR POC ABG pH POC ABG pCO2 POC ABG pO2 Sodium 152 H Potassium Chloride 117.1 H Carbon Dioxide 17 L BUN 66 H Creatinine 2.8 H Glucose 119 H POC Glucose Lactic Acid Calcium 7.8 L Magnesium 2.70 H AST ALT Alkaline Phosphatase Troponin T C-Reactive Protein Total Protein Albumin LDL Cholesterol Direct HDL Cholesterol Hepatitis C Antibody Crossmatch 11/20/17 11/20/17 11/20/17 03:29 04:48 13:38 WBC RBC Hgb Hct MCV MCH MCHC RDW Plt Count Lymph % (Auto) [place] % (Auto) Lymph # [place] # Seg Neutrophils % Seg Neuts % (Manual) Lymphocytes % (Manual) Monocytes % (Manual) Nucleated RBC % Seg Neutrophils # Seg Neutrophils # Man Lymphocytes # (Manual) Monocytes # (Manual) PT INR POC ABG pH POC ABG pCO2 29.4 L POC ABG pO2 Sodium 148 H Potassium 3.4 L Chloride 113.7 H Carbon Dioxide 18 L BUN 59 H Creatinine 2.7 H Glucose 113 H POC Glucose 128 H Lactic Acid Calcium 7.8 L Magnesium AST ALT Alkaline Phosphatase Troponin T C-Reactive Protein Total Protein Albumin LDL Cholesterol Direct HDL Cholesterol Hepatitis C Antibody Crossmatch 11/20/17 11/20/1711/21/18 17:38 23:40 00:13 WBC RBC Hgb 8.4 L Hct 28.0 L MCV MCH MCHC RDW Plt Count Lymph % (Auto) [place] % (Auto) Lymph # [place] # Seg Neutrophils % Seg Neuts % (Manual) Lymphocytes % (Manual) Monocytes % (Manual) Nucleated RBC % Seg Neutrophils # Seg Neutrophils # Man Lymphocytes # (Manual) Monocytes # (Manual) PT INR POC ABG pH POC ABG pCO2 POC ABG pO2 Sodium Potassium Chloride Carbon Dioxide BUN Creatinine Glucose POC Glucose 115 H 145 H Lactic Acid Calcium Magnesium AST ALT Alkaline Phosphatase Troponin T C-Reactive Protein Total Protein Albumin LDL Cholesterol Direct HDL Cholesterol Hepatitis C Antibody Crossmatch 11/21/17 11/21/17 11/21/17 04:30 04:30 04:58 WBC 21.0 H RBC Hgb 9.6 L Hct 32.7 L MCV MCH 25 L MCHC 29 L RDW 19.7 H Plt Count 746 H Lymph % (Auto) [place] % (Auto) Lymph # [place] # Seg Neutrophils % Seg Neuts % (Manual) Lymphocytes % (Manual) Monocytes % (Manual) Nucleated RBC % Seg Neutrophils # Seg Neutrophils # Man Lymphocytes # (Manual) Monocytes # (Manual) PT INR POC ABG pH POC ABG pCO2 POC ABG pO2 Sodium Potassium Chloride 109.4 H Carbon Dioxide 14 L BUN 59 H Creatinine 3.0 H Glucose 137 H POC Glucose 132 H Lactic Acid Calcium 7.6 L Magnesium AST ALT Alkaline Phosphatase Troponin T C-Reactive Protein Total Protein Albumin LDL Cholesterol Direct HDL Cholesterol Hepatitis C Antibody Crossmatch 11/21/17 11/21/17 11/21/17 06:30 13:43 14:17 WBC 38.2 H RBC Hgb 9.0 L Hct 32.3 L MCV MCH 25 L MCHC 28 L RDW 20.0 H Plt Count 766 H Lymph % (Auto) [place] % (Auto) Lymph # [place] # Seg Neutrophils % Seg Neuts % (Manual) 85.0 H Lymphocytes % (Manual) 1.0 L Monocytes % (Manual) Nucleated RBC % 2.0 H Seg Neutrophils # Seg Neutrophils # Man 32.5 H Lymphocytes # (Manual) 0.4 L Monocytes # (Manual) 2.3 H PT INR POC ABG pH POC ABG pCO2 18.6 L POC ABG pO2 121 H Sodium 146 H Potassium Chloride 110.9 H Carbon Dioxide 11 L BUN 62 H Creatinine 4.0 H Glucose 64 L POC Glucose Lactic Acid Calcium 7.6 L Magnesium AST ALT Alkaline Phosphatase Troponin T C-Reactive Protein Total Protein Albumin LDL Cholesterol Direct HDL Cholesterol Hepatitis C Antibody Crossmatch 11/21/17 11/21/17 11/22/17 14:17 19:09 00:05 WBC RBC Hgb Hct MCV MCH MCHC RDW Plt Count Lymph % (Auto) [place] % (Auto) Lymph # [place] # Seg Neutrophils % Seg Neuts % (Manual) Lymphocytes % (Manual) Monocytes % (Manual) Nucleated RBC % Seg Neutrophils # Seg Neutrophils # Man Lymphocytes # (Manual) Monocytes # (Manual) PT INR POC ABG pH POC ABG pCO2 20.0 L POC ABG pO2 Sodium Potassium Chloride Carbon Dioxide BUN Creatinine Glucose POC Glucose 127 H Lactic Acid 7.70 H* Calcium Magnesium AST ALT Alkaline Phosphatase Troponin T C-Reactive Protein Total Protein Albumin LDL Cholesterol Direct HDL Cholesterol Hepatitis C Antibody Crossmatch 11/22/17 11/22/17 11/22/17 03:53 06:00 07:25 WBC RBC Hgb Hct MCV MCH MCHC RDW Plt Count Lymph % (Auto) [place] % (Auto) Lymph # [place] # Seg Neutrophils % Seg Neuts % (Manual) Lymphocytes % (Manual) Monocytes % (Manual) Nucleated RBC % Seg Neutrophils # Seg Neutrophils # Man Lymphocytes # (Manual) Monocytes # (Manual) PT INR POC ABG pH POC ABG pCO2 22.2 L POC ABG pO2 Sodium 147 H Potassium Chloride 111.9 H Carbon Dioxide 16 L BUN 72 H Creatinine 5.1 H Glucose 181 H POC Glucose 180 H Lactic Acid Calcium 7.1 L Magnesium AST ALT Alkaline Phosphatase Troponin T C-Reactive Protein Total Protein Albumin LDL Cholesterol Direct HDL Cholesterol Hepatitis C Antibody Crossmatch 11/22/17 11/22/17 11/22/17 07:25 07:25 12:05 WBC 31.4 H RBC 3.22 L Hgb 8.0 L Hct 26.7 L MCV 83 L MCH 25 L MCHC 30 L RDW 19.4 H Plt Count 602 H Lymph % (Auto) [place] % (Auto) Lymph # [place] # Seg Neutrophils % Seg Neuts % (Manual) Lymphocytes % (Manual) Monocytes % (Manual) Nucleated RBC % Seg Neutrophils # Seg Neutrophils # Man Lymphocytes # (Manual) Monocytes # (Manual) PT INR POC ABG pH POC ABG pCO2 POC ABG pO2 Sodium Potassium Chloride Carbon Dioxide BUN Creatinine Glucose POC Glucose 182 H Lactic Acid 5.00 H* Calcium Magnesium AST ALT Alkaline Phosphatase Troponin T C-Reactive Protein Total Protein Albumin LDL Cholesterol Direct HDL Cholesterol Hepatitis C Antibody Crossmatch 11/22/17 11/23/17 11/23/17 19:45 01:28 04:56 WBC RBC Hgb Hct MCV MCH MCHC RDW Plt Count Lymph % (Auto) [place] % (Auto) Lymph # [place] # Seg Neutrophils % Seg Neuts % (Manual) Lymphocytes % (Manual) Monocytes % (Manual) Nucleated RBC % Seg Neutrophils # Seg Neutrophils # Man Lymphocytes # (Manual) Monocytes # (Manual) PT INR POC ABG pH 7.505 H POC ABG pCO2 26.3 L POC ABG pO2 Sodium Potassium Chloride Carbon Dioxide BUN Creatinine Glucose POC Glucose 165 H Lactic Acid Calcium Magnesium AST ALT Alkaline Phosphatase Troponin T C-Reactive Protein Total Protein Albumin LDL Cholesterol Direct HDL Cholesterol Hepatitis C Antibody Reactive A Crossmatch 11/23/17 11/23/17 11/23/17 07:05 12:32 17:53 WBC RBC Hgb Hct MCV MCH MCHC RDW Plt Count Lymph % (Auto) [place] % (Auto) Lymph # [place] # Seg Neutrophils % Seg Neuts % (Manual) Lymphocytes % (Manual) Monocytes % (Manual) Nucleated RBC % Seg Neutrophils # Seg Neutrophils # Man Lymphocytes # (Manual) Monocytes # (Manual) PT INR POC ABG pH POC ABG pCO2 POC ABG pO2 Sodium Potassium Chloride Carbon Dioxide 18 L BUN 61 H Creatinine 4.2 H Glucose 153 H POC Glucose 138 H 173 H Lactic Acid Calcium 7.5 L Magnesium AST ALT Alkaline Phosphatase Troponin T C-Reactive Protein Total Protein Albumin LDL Cholesterol Direct HDL Cholesterol Hepatitis C Antibody Crossmatch 11/23/17 11/24/17 11/24/17 23:41 05:42 05:42 WBC 21.5 H RBC 2.48 L Hgb 6.2 L Hct 20.3 L D MCV 82 L MCH 25 L MCHC 31 L RDW 18.9 H Plt Count Lymph % (Auto) [place] % (Auto) Lymph # [place] # Seg Neutrophils % Seg Neuts % (Manual) 94.0 H Lymphocytes % (Manual) 3.0 L Monocytes % (Manual) Nucleated RBC % Seg Neutrophils # Seg Neutrophils # Man 20.2 H Lymphocytes # (Manual) 0.6 L Monocytes # (Manual) PT INR POC ABG pH POC ABG pCO2 POC ABG pO2 Sodium 149 H Potassium 2.8 L* D Chloride 113.9 H Carbon Dioxide 19 L BUN 31 H Creatinine 2.3 H Glucose 103 H POC Glucose 133 H Lactic Acid Calcium 5.3 L* D Magnesium 1.30 L AST ALT Alkaline Phosphatase Troponin T C-Reactive Protein Total Protein Albumin LDL Cholesterol Direct HDL Cholesterol Hepatitis C Antibody Crossmatch 11/24/17 11/24/17 11/24/17 05:42 08:27 08:27 WBC RBC Hgb Hct MCV MCH MCHC RDW Plt Count Lymph % (Auto) [place] % (Auto) Lymph # [place] # Seg Neutrophils % Seg Neuts % (Manual) Lymphocytes % (Manual) Monocytes % (Manual) Nucleated RBC % Seg Neutrophils # Seg Neutrophils # Man Lymphocytes # (Manual) Monocytes # (Manual) PT INR POC ABG pH POC ABG pCO2 POC ABG pO2 Sodium Potassium Chloride Carbon Dioxide BUN Creatinine Glucose POC Glucose Lactic Acid 5.40 H* 5.20 H* Calcium Magnesium AST ALT Alkaline Phosphatase Troponin T C-Reactive Protein Total Protein Albumin LDL Cholesterol Direct HDL Cholesterol Hepatitis C Antibody Crossmatch See Detail 11/24/17 11/24/17 11/24/17 12:13 17:22 21:53 WBC 23.0 H RBC 3.32 L Hgb 8.8 L Hct 27.1 L D MCV 82 L MCH 26 L MCHC RDW 17.3 H Plt Count Lymph % (Auto) [place] % (Auto) Lymph # [place] # Seg Neutrophils % Seg Neuts % (Manual) Lymphocytes % (Manual) Monocytes % (Manual) Nucleated RBC % Seg Neutrophils # Seg Neutrophils # Man Lymphocytes # (Manual) Monocytes # (Manual) PT INR POC ABG pH POC ABG pCO2 POC ABG pO2 Sodium Potassium Chloride Carbon Dioxide BUN Creatinine Glucose POC Glucose 138 H 180 H Lactic Acid Calcium Magnesium AST ALT Alkaline Phosphatase Troponin T C-Reactive Protein Total Protein Albumin LDL Cholesterol Direct HDL Cholesterol Hepatitis C Antibody Crossmatch 11/24/17 11/24/17 11/25/17 21:53 23:28 04:19 WBC RBC Hgb Hct MCV MCH MCHC RDW Plt Count Lymph % (Auto) [place] % (Auto) Lymph # [place] # Seg Neutrophils % Seg Neuts % (Manual) Lymphocytes % (Manual) Monocytes % (Manual) Nucleated RBC % Seg Neutrophils # Seg Neutrophils # Man Lymphocytes # (Manual) Monocytes # (Manual) PT INR POC ABG pH POC ABG pCO2 POC ABG pO2 Sodium Potassium Chloride 96.3 L Carbon Dioxide BUN 28 H 31 H Creatinine 2.3 H 2.6 H Glucose 125 H 101 H POC Glucose 111 H Lactic Acid Calcium 7.5 L D 7.4 L Magnesium AST 170 H ALT 179 H Alkaline Phosphatase 175 H Troponin T C-Reactive Protein Total Protein 5.5 L Albumin 1.8 L LDL Cholesterol Direct HDL Cholesterol Hepatitis C Antibody Crossmatch 11/25/17 11/25/17 11/26/17 04:19 04:19 06:29 WBC 22.5 H RBC 3.48 L Hgb 9.1 L Hct 28.3 L MCV 81 L MCH 26 L MCHC RDW 17.4 H Plt Count Lymph % (Auto) [place] % (Auto) Lymph # [place] # Seg Neutrophils % Seg Neuts % (Manual) Lymphocytes % (Manual) Monocytes % (Manual) Nucleated RBC % Seg Neutrophils # Seg Neutrophils # Man Lymphocytes # (Manual) Monocytes # (Manual) PT 23.6 H INR 1.96 H POC ABG pH POC ABG pCO2 POC ABG pO2 Sodium Potassium Chloride Carbon Dioxide BUN 31 H Creatinine 2.6 H Glucose 101 H POC Glucose Lactic Acid Calcium 7.5 L Magnesium AST ALT Alkaline Phosphatase Troponin T C-Reactive Protein Total Protein Albumin LDL Cholesterol Direct HDL Cholesterol Hepatitis C Antibody Crossmatch 11/26/17 11/27/17 11/27/17 06:34 04:06 04:06 WBC 11.3 H RBC 3.13 L Hgb 8.4 L Hct 25.8 L MCV 82 L MCH 27 L MCHC RDW 17.7 H Plt Count Lymph % (Auto) 7.4 L [place] % (Auto) Lymph # 0.8 L [place] # Seg Neutrophils % 83.7 H Seg Neuts % (Manual) Lymphocytes % (Manual) Monocytes % (Manual) Nucleated RBC % Seg Neutrophils # 9.5 H Seg Neutrophils # Man Lymphocytes # (Manual) Monocytes # (Manual) PT INR POC ABG pH POC ABG pCO2 POC ABG pO2 Sodium Potassium Chloride 97.9 L Carbon Dioxide BUN 43 H 29 H Creatinine 3.5 H 2.9 H Glucose POC Glucose Lactic Acid Calcium 7.5 L 8.1 L Magnesium AST ALT Alkaline Phosphatase Troponin T C-Reactive Protein Total Protein Albumin LDL Cholesterol Direct HDL Cholesterol Hepatitis C Antibody Crossmatch 11/27/17 11/28/17 11/28/17 18:11 00:16 03:50 WBC RBC Hgb Hct MCV MCH MCHC RDW Plt Count Lymph % (Auto) [place] % (Auto) Lymph # [place] # Seg Neutrophils % Seg Neuts % (Manual) Lymphocytes % (Manual) Monocytes % (Manual) Nucleated RBC % Seg Neutrophils # Seg Neutrophils # Man Lymphocytes # (Manual) Monocytes # (Manual) PT INR POC ABG pH POC ABG pCO2 POC ABG pO2 Sodium Potassium Chloride Carbon Dioxide BUN 39 H Creatinine 4.1 H Glucose 108 H POC Glucose 110 H 124 H Lactic Acid Calcium 7.9 L Magnesium AST ALT Alkaline Phosphatase Troponin T C-Reactive Protein Total Protein Albumin LDL Cholesterol Direct HDL Cholesterol Hepatitis C Antibody Crossmatch 11/28/17 11/28/17 11/28/17 05:03 11:36 17:42 WBC RBC Hgb Hct MCV MCH MCHC RDW Plt Count Lymph % (Auto) [place] % (Auto) Lymph # [place] # Seg Neutrophils % Seg Neuts % (Manual) Lymphocytes % (Manual) Monocytes % (Manual) Nucleated RBC % Seg Neutrophils # Seg Neutrophils # Man Lymphocytes # (Manual) Monocytes # (Manual) PT INR POC ABG pH POC ABG pCO2 POC ABG pO2 Sodium Potassium Chloride Carbon Dioxide BUN Creatinine Glucose POC Glucose 134 H 114 H 119 H Lactic Acid Calcium Magnesium AST ALT Alkaline Phosphatase Troponin T C-Reactive Protein Total Protein Albumin LDL Cholesterol Direct HDL Cholesterol Hepatitis C Antibody Crossmatch 11/29/17 11/29/17 11/29/17 00:22 05:25 05:25 WBC 12.3 H RBC 3.34 L Hgb 8.6 L Hct 27.3 L MCV 82 L MCH 26 L MCHC RDW 18.5 H Plt Count Lymph % (Auto) 3.7 L [place] % (Auto) 7.7 H Lymph # 0.5 L [place] # 1.0 H Seg Neutrophils % 86.5 H Seg Neuts % (Manual) Lymphocytes % (Manual) Monocytes % (Manual) Nucleated RBC % Seg Neutrophils # 10.7 H Seg Neutrophils # Man Lymphocytes # (Manual) Monocytes # (Manual) PT INR POC ABG pH POC ABG pCO2 POC ABG pO2 Sodium Potassium Chloride Carbon Dioxide BUN 29 H Creatinine 3.5 H Glucose 109 H POC Glucose 137 H Lactic Acid Calcium 7.8 L Magnesium AST ALT Alkaline Phosphatase Troponin T C-Reactive Protein Total Protein Albumin LDL Cholesterol Direct HDL Cholesterol Hepatitis C Antibody Crossmatch 11/29/17 11/30/17 11/30/17 05:26 00:26 04:17 WBC RBC Hgb Hct MCV MCH MCHC RDW Plt Count Lymph % (Auto) [place] % (Auto) Lymph # [place] # Seg Neutrophils % Seg Neuts % (Manual) Lymphocytes % (Manual) Monocytes % (Manual) Nucleated RBC % Seg Neutrophils # Seg Neutrophils # Man Lymphocytes # (Manual) Monocytes # (Manual) PT INR POC ABG pH POC ABG pCO2 POC ABG pO2 Sodium Potassium Chloride Carbon Dioxide BUN 38 H Creatinine 4.3 H Glucose 109 H POC Glucose 129 H 152 H Lactic Acid Calcium 7.8 L Magnesium AST ALT Alkaline Phosphatase Troponin T C-Reactive Protein Total Protein Albumin LDL Cholesterol Direct HDL Cholesterol Hepatitis C Antibody Crossmatch
--- NOTE | 2017-11-30 11:37 | Progress Note ---
Assessment and Plan Assessment: 1) Sepsis with transient septic shock: still feer, leukocytosis up. Etiology most likely PEG-associated intraabdominal collection. CRP=25 2) VAP vs post-obstructive pneumonia (mucous mugging) -initial sputum 10/10 Klebsiella -sputum 11/12 usual respiratory estela -CXR showed increased perihilar alveolar density >RLL than LLL. -CTA showed complete atelectasis of the LLL with mediatinal shift to the left due to blockage of the left main bronchus by ETT. 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 Olga Mercedes MD Infectious Diseases Specialist [facility] ([facility] M [phone] O [phone] Subjective Date of service: 11/30/17 Principal diagnosis: Acute hypoxic respiratory failure due to Pneumonia on MV> 96 hours s/p Trach Interval history: This is a reconsult due to intra-abdominal collection status post IR drainage, worsneing leukocytosis, [id number]. Patient remains on the vent currently on T piece. No fever for 3 days Microbiology: Blood cultures: 10/24 AVP 10/29 neg 11/10 neg 11/12 ngtd Urine cultures: Respiratory cultures: 10/10 Klebsiella 11/12 usual resp estela IR drainage 11/26 Enterobacter and Heather not albicans Current Antimicrobials: cefepime fluconaozle Previous Antimicrobials: LevaquinZosyn 11/13 Objective - Exam Narrative Exam: General appearance: sedated on the vent non verbal on CPAP Eyes: anicteric sclerae, moist conjunctivae; no lid-lag; PERRLA HENT: Atraumatic; oropharynx+ETT +OGT Neck: Trachea midline; supple, no thyromegaly or lymphadenopathy Lungs: scattered rhonchi CV: tachy Abdomen: Soft, distended +PEG +3 drains with minimal purulence Extremities: winnie arms/legs edema Skin: Normal temperature, turgor and texture; no rash, ulcers or subcutaneous nodules Psych: sedated Neuro: sedated Lines: condom cath - Constitutional Vitals: Vital Signs Temp Pulse Resp BP Pulse Ox 97.7 F 96 H 16 127/71 100 11/30/17 08:55 11/30/17 11:15 11/30/17 11:15 11/30/17 11:15 11/30/17 11:15 Temperature -Last 24 Hours Temperature 97.7 F Temperature 97.7 F Temperature 98.8 F Temperature 98.4 F Temperature 98.6 F Temperature 98.5 F Temperature 98.4 F - Labs CBC & Chem 7: 11/29/17 05:25 11/30/17 04:17 Labs: Abnormal lab results 11/30/17 11/30/17 Range/Units 00:26 04:17 BUN 38 H (9-20) mg/dL Creatinine 4.3 H (0.8-1.5) mg/dL Glucose 109 H (75-100) mg/dL POC Glucose 152 H (70-105) Calcium 7.8 L (8.4-10.2) mg/dL
--- NOTE | 2017-11-30 11:48 | Progress Note ---
Assessment and Plan Assessment and plan: Acute on chronic respiratory failure with hypoxia -Status post tracheostomy, currently on T-piece -Pulmonology following Severe sepsis with shock likely secondary to aspiration pneumonia -Off IV pressors -Blood and sputum cultures negative Aspiration pneumonia with mucus plugging -off zosyn Acute kidney injury secondary to ATN -on Intermittent HD started on 11/23/17 -Creatinine level still elevated at 4.3 today -Nephrology following Current sepsis secondary to peritonitis from dislodged peg tube -Status post drainage -peritoneal Fluid positive for Enterobacter, Heather (non albicans) -On IV cefepime and fluconazole -ID following Anemia of acute loss secondary to gastric ulcer and gastritis -Status post EGD on 11/18/2017 -Status post blood transfusion -H/H stable, will monitor Acute encephalopathy, likely multifactorial -Will continue to monitor clinically -Prognosis is poor Hypernatremia -Resolved Hypokalemia and hypomagnesemia -Resolved s/p repletion Oropharyngeal dysphagia -Status post PEG tube placement -On tube feeding History of recent CVA -Not on aspirin due to recent bleed RT ICA stenosis -s/p recent endarterectomy Disposition: Patient overall prognosis remains poor. Continue current management History Interval history: Pt is non-verbal. No overnight issues reported Hospitalist Physical - Constitutional Vitals: Temp Pulse Resp BP Pulse Ox 97.7 F 111 H 23 144/90 100 11/30/17 08:55 11/30/17 11:30 11/30/17 11:30 11/30/17 11:30 11/30/17 11:30 General appearance: Present: no acute distress - EENT Eyes: Present: PERRL ENT: clear oral mucosa - Neck Neck: Present: supple, other (status post tracheostomy) - Respiratory Respiratory effort: normal Respiratory: bilateral: rales - Cardiovascular Rhythm: other (tachycardia with regular rhythm) Heart Sounds: Present: S1 & S2 - Abdominal General gastrointestinal: soft, non-tender, normal bowel sounds, other (PEG tube noted) - Neurologic Neurologic: other (pt is non-verbal) Results - Labs CBC & Chem 7: 11/29/17 05:25 11/30/17 04:17 Labs: Laboratory Last Values WBC 12.3 K/mm3 (4.5-11.0) H 11/29/17 05:25 RBC 3.34 M/mm3 (3.65-5.03) L 11/29/17 05:25 Hgb 8.6 gm/dl (11.8-15.2) L 11/29/17 05:25 Hct 27.3 % (35.5-45.6) L 11/29/17 05:25 MCV 82 fl (84-94) L 11/29/17 05:25 MCH 26 pg (28-32) L 11/29/17 05:25 MCHC 32 % (32-34) 11/29/17 05:25 RDW 18.5 % (13.2-15.2) H 11/29/17 05:25 Plt Count 149 K/mm3 (140-440) 11/29/17 05:25 Lymph % (Auto) 3.7 % (13.4-35.0) L 11/29/17 05:25 [place] % (Auto) 7.7 % (0.0-7.3) H 11/29/17 05:25 Eos % (Auto) 1.9 % (0.0-4.3) 11/29/17 05:25 Baso % (Auto) 0.2 % (0.0-1.8) 11/29/17 05:25 Lymph # 0.5 K/mm3 (1.2-5.4) L 11/29/17 05:25 [place] # 1.0 K/mm3 (0.0-0.8) H 11/29/17 05:25 Eos # 0.2 K/mm3 (0.0-0.4) 11/29/17 05:25 Baso # 0.0 K/mm3 (0.0-0.1) 11/29/17 05:25 Add Manual Diff Complete 11/24/17 05:42 Total Counted 100 11/24/17 05:42 Seg Neutrophils % 86.5 % (40.0-70.0) H 11/29/17 05:25 Seg Neuts % (Manual) 94.0 % (40.0-70.0) H 11/24/17 05:42 Band Neutrophils % 0 % 11/24/17 05:42 Lymphocytes % (Manual) 3.0 % (13.4-35.0) L 11/24/17 05:42 Reactive Lymphs % (Man) 0 % 11/24/17 05:42 Monocytes % (Manual) 3.0 % (0.0-7.3) 11/24/17 05:42 Eosinophils % (Manual) 0 % (0.0-4.3) 11/24/17 05:42 Basophils % (Manual) 0 % (0.0-1.8) 11/24/17 05:42 Metamyelocytes % 0 % 11/24/17 05:42 Myelocytes % 0 % 11/24/17 05:42 Promyelocytes % 0 % 11/24/17 05:42 Blast Cells % 0 % 11/24/17 05:42 Nucleated RBC % Not Reportable 11/24/17 05:42 Seg Neutrophils # 10.7 K/mm3 (1.8-7.7) H 11/29/17 05:25 Seg Neutrophils # Man 20.2 K/mm3 (1.8-7.7) H 11/24/17 05:42 Band Neutrophils # 0.0 K/mm3 11/24/17 05:42 Lymphocytes # (Manual) 0.6 K/mm3 (1.2-5.4) L 11/24/17 05:42 Abs React Lymphs (Man) 0.0 K/mm3 11/24/17 05:42 Monocytes # (Manual) 0.6 K/mm3 (0.0-0.8) 11/24/17 05:42 Eosinophils # (Manual) 0.0 K/mm3 (0.0-0.4) 11/24/17 05:42 Basophils # (Manual) 0.0 K/mm3 (0.0-0.1) 11/24/17 05:42 Metamyelocytes # 0.0 K/mm3 11/24/17 05:42 Myelocytes # 0.0 K/mm3 11/24/17 05:42 Promyelocytes # 0.0 K/mm3 11/24/17 05:42 Blast Cells # 0.0 K/mm3 11/24/17 05:42 WBC Morphology Not Reportable 11/24/17 05:42 Hypersegmented Neuts Not Reportable 11/24/17 05:42 Hyposegmented Neuts Not Reportable 11/24/17 05:42 Hypogranular Neuts Not Reportable 11/24/17 05:42 Smudge Cells Not Reportable 11/24/17 05:42 Toxic Granulation Not Reportable 11/24/17 05:42 Toxic Vacuolation Not Reportable 11/24/17 05:42 Dohle Bodies Not Reportable 11/24/17 05:42 Pelger-Huet Anomaly Not Reportable 11/24/17 05:42 Evangelina Rods Not Reportable 11/24/17 05:42 Platelet Estimate Appears normal 11/24/17 05:42 Clumped Platelets Not Reportable 11/24/17 05:42 Plt Clumps, EDTA Not Reportable 11/24/17 05:42 Large Platelets Not Reportable 11/24/17 05:42 Giant Platelets Not Reportable 11/24/17 05:42 Platelet Satelliting Not Reportable 11/24/17 05:42 Plt Morphology Comment Not Reportable 11/24/17 05:42 RBC Morphology Not Reportable 11/24/17 05:42 Dimorphic RBCs Not Reportable 11/24/17 05:42 Polychromasia Not Reportable 11/24/17 05:42 Hypochromasia Not Reportable 11/24/17 05:42 Poikilocytosis Not Reportable 11/24/17 05:42 Anisocytosis Few 11/24/17 05:42 Microcytosis Not Reportable 11/24/17 05:42 Macrocytosis Not Reportable 11/24/17 05:42 Spherocytes Not Reportable 11/24/17 05:42 Pappenheimer Bodies Not Reportable 11/24/17 05:42 Sickle Cells Not Reportable 11/24/17 05:42 Target Cells Few 11/24/17 05:42 Tear Drop Cells Not Reportable 11/24/17 05:42 Ovalocytes Not Reportable 11/24/17 05:42 Stomatocytes Few 11/18/17 04:34 Helmet Cells Not Reportable 11/24/17 05:42 [place] Bodies Not Reportable 11/24/17 05:42 [place] Rings Not Reportable 11/24/17 05:42 [place] Cells Not Reportable 11/24/17 05:42 Bite Cells Not Reportable 11/24/17 05:42 Crenated Cell Not Reportable 11/24/17 05:42 Elliptocytes Not Reportable 11/24/17 05:42 Acanthocytes (Spur) Not Reportable 11/24/17 05:42 [place]leaux Not Reportable 11/24/17 05:42 Hemoglobin C Crystals Not Reportable 11/24/17 05:42 Schistocytes Not Reportable 11/24/17 05:42 Malaria parasites Not Reportable 11/24/17 05:42 [place] Bodies Not Reportable 11/24/17 05:42 Hem Pathologist Commnt No 11/24/17 05:42 PT 23.6 Sec. (12.2-14.9) H 11/26/17 06:29 INR 1.96 (0.87-1.13) H 11/26/17 06:29 APTT 33.8 Sec. (24.2-36.6) 11/26/17 06:29 POC ABG pH 7.505 (7.35-7.45) H 11/23/17 04:56 POC ABG pCO2 26.3 (35-45) L 11/23/17 04:56 POC ABG pO2 100 (80-105) 11/23/17 04:56 POC ABG HCO3 20.8 11/23/17 04:56 POC ABG Total CO2 22 11/23/17 04:56 POC ABG O2 Sat 98 11/23/17 04:56 POC ABG Base Excess -2 11/23/17 04:56 FiO2 30 % 11/23/17 04:56 Sodium 144 mmol/L (137-145) 11/30/17 04:17 Potassium 3.9 mmol/L (3.6-5.0) 11/30/17 04:17 Chloride 104.1 mmol/L (98-107) 11/30/17 04:17 Carbon Dioxide 25 mmol/L (22-30) 11/30/17 04:17 Anion Gap 19 mmol/L 11/30/17 04:17 BUN 38 mg/dL (9-20) H 11/30/17 04:17 Creatinine 4.3 mg/dL (0.8-1.5) H 11/30/17 04:17 Estimated GFR 17 ml/min 11/30/17 04:17 BUN/Creatinine Ratio 9 % 11/30/17 04:17 Glucose 109 mg/dL (75-100) H 11/30/17 04:17 POC Glucose 152 (70-105) H 11/30/17 00:26 Lactic Acid 1.80 mmol/L (0.7-2.0) 11/27/17 04:06 Calcium 7.8 mg/dL (8.4-10.2) L 11/30/17 04:17 Magnesium 2.00 mg/dL (1.7-2.3) 11/24/17 21:53 Total Bilirubin 0.90 mg/dL (0.1-1.2) 11/24/17 21:53 AST 170 units/L (5-40) H 11/24/17 21:53 ALT 179 units/L (7-56) H 11/24/17 21:53 Alkaline Phosphatase 175 units/L (35-129) H 11/24/17 21:53 Total Creatine Kinase 84 units/L (55-170) 11/12/17 20:03 CK-MB (CK-2) < 1.0 ng/mL (0.0-4.0) 11/12/17 20:03 CK-MB (CK-2) Rel Index 1.1 (0-4) 11/12/17 20:03 Troponin T 0.098 ng/mL (0.00-0.029) H 11/12/17 Unknown C-Reactive Protein 25.70 mg/dL (0.00-1.30) H 11/11/17 23:20 NT-Pro-B Natriuret Pep 792.4 pg/mL (0-900) 11/11/17 23:20 Total Protein 5.5 g/dL (6.3-8.2) L 11/24/17 21:53 Albumin 1.8 g/dL (3.9-5) L 11/24/17 21:53 Albumin/Globulin Ratio 0.5 % 11/24/17 21:53 Triglycerides 86 mg/dL (2-149) 11/11/17 23:20 Cholesterol 82 mg/dL (50-199) 11/11/17 23:20 LDL Cholesterol Direct 42 mg/dL (50-130) L 11/11/17 23:20 HDL Cholesterol 24 mg/dL (40-59) L 11/11/17 23:20 Cholesterol/HDL Ratio 3.41 % 11/11/17 23:20 Lipase 30 units/L (13-60) 11/11/17 23:20 Urine Color [place] (Yellow) 11/11/17 23:09 Urine Turbidity Cloudy (Clear) 11/11/17 23:09 Urine pH 5.0 (5.0-7.0) 11/11/17 23:09 Ur Specific [place] 1.025 (1.003-1.030) 11/11/17 23:09 Urine Protein 100 mg/dl mg/dL (Negative) 11/11/17 23:09 Urine Glucose (UA) 50 mg/dL (Negative) 11/11/17 23:09 Urine Ketones Neg mg/dL (Negative) 11/11/17 23:09 Urine Blood Neg (Negative) 11/11/17 23:09 Urine Nitrite Neg (Negative) 11/11/17 23:09 Urine Bilirubin Neg (Negative) 11/11/17 23:09 Urine Urobilinogen 4.0 mg/dL (<2.0) 11/11/17 23:09 Ur Leukocyte Esterase Neg (Negative) 11/11/17 23:09 Urine WBC (Auto) 5.0 /HPF (0.0-6.0) 11/11/17 23:09 Urine RBC (Auto) 4.0 /HPF (0.0-6.0) 11/11/17 23:09 Urine Bacteria (Auto) 3+ /HPF (Negative) 11/11/17 23:09 Amorphous Crystals 3+ 11/11/17 23:09 Hyaline Casts 76 /LPF 11/11/17 23:09 Urine Mucus 2+ /HPF 11/11/17 23:09 Hepatitis A IgM Ab Non-reactive (NonReactive) 11/22/17 19:45 Hep Bs Antigen Non-reactive (Negative) 11/22/17 19:45 Hep B Core IgM Ab Non-reactive (NonReactive) 11/22/17 19:45 Hepatitis C Antibody Reactive (NonReactive) A 11/22/17 19:45 Blood Type A POSITIVE 11/24/17 08:27 Antibody Screen Negative 11/24/17 08:27 Crossmatch See Detail 11/24/17 08:27
[2017-11-30] MEDS: DIFLUCAN 200 MG/100 ML BAG IV SCH (13:48)
[2017-11-30] MEDS: PROTONIX (nf) FEEDTUBE SCH ×2 (13:49→23:24)
[2017-11-30] MEDS: SODIUM CHLORIDE FLUSH SYRINGE 10 ML IV SCH ×3 (13:49→23:24)
[2017-11-30] MEDS ORDERED: MAXIPIME/NS 2 GM/100 ML 2 GM/100 ML BAG IV SCH (20:00)
[2017-12-01 04:41] LABS: Basophils % (Auto) 0.2 % (0.0-1.8); Eosinophils # (Auto) 0.2 K/mm3 (0.0-0.4); Eosinophils % (Auto) 1.7 % (0.0-4.3); Hemoglobin 8.6 gm/dl (11.8-15.2); Lymphocytes # (Auto) 0.8 K/mm3 (1.2-5.4); Lymphocytes % (Auto) 5.5 % (13.4-35.0); Mean Corpuscular HGB Conc 32 % (32-34); Mean Corpuscular Hemoglobin 26 pg (28-32); Mean Corpuscular Volume 81 fl (84-94); Monocytes # (Auto) 1.4 K/mm3 (0.0-0.8); Monocytes % (Auto) 9.7 % (0.0-7.3); Platelet Count 147 K/mm3 (140-440); Red Blood Count 3.32 M/mm3 (3.65-5.03); Red Cell Distribution Width 18.7 % (13.2-15.2)
--- NOTE | 2017-12-01 06:55 | Progress Note ---
Assessment and Plan 67 y/o male with acute on chronic respiratory failure, now trached, with peritonitis from dislodged peg tube s/p 2 IR drains now with NGT feedings. 1. Asked nursing to share concerns with surgery. Did not want to take dressing down multiple times. Will call surgery today and ask to re-evaluate. For now, continue NG tube feedings. 2. ENT may downsize trach soon per report, no note from them on yesterday 3. Placement once able to use peg and remover NG tube. may need to consider LTACH given current micro results and change in abx therapy. Will ask ID how long he will need IV therapy. 4. Pulmonary theodore stable with trach and hemodynamics are stable, need to consider transfer out of ICU. 5. Electrolytes per renal given 3x/week HD Subjective Date of service: 12/01/17 Principal diagnosis: Acute hypoxic respiratory failure due to Pneumonia on MV> 96 hours s/p Trach Interval history: No acute events overnight. Vent discontinued from room. No breathing issues. Continues to tolerate T-piece. Remainder is negative. now growing MDR enterobacter and abx therapy switched by ID. Ordered at Midnight but not up yet. Spoke with charge nurse about this. Objective Vital Signs - 12hr 11/30/17 11/30/17 11/30/17 19:00 19:12 19:15 Temperature Pulse Rate 114 H 110 H Respiratory 38 H 37 H Rate Blood Pressure 140/82 143/84 O2 Sat by Pulse 96 94 100 Oximetry O2 Sat by Pulse Oximetry [ Assessment] 11/30/17 11/30/17 11/30/17 19:18 19:30 19:45 Temperature Pulse Rate 107 H 102 H Respiratory 24 28 H Rate Blood Pressure 137/81 124/69 O2 Sat by Pulse 100 98 Oximetry O2 Sat by Pulse 99 Oximetry [ Assessment] 11/30/17 11/30/17 11/30/17 19:59 20:00 20:15 Temperature 98.8 F Pulse Rate 88 109 H Respiratory 29 H 37 H Rate Blood Pressure 122/66 148/81 O2 Sat by Pulse 100 99 Oximetry O2 Sat by Pulse Oximetry [ Assessment] 11/30/17 11/30/17 11/30/17 20:30 20:45 20:50 Temperature Pulse Rate 87 106 H 82 Respiratory 30 H 33 H Rate Blood Pressure 124/70 133/82 O2 Sat by Pulse 100 100 100 Oximetry O2 Sat by Pulse Oximetry [ Assessment] 11/30/17 11/30/17 11/30/17 21:00 21:15 21:30 Temperature Pulse Rate 103 H 107 H 110 H Respiratory 31 H 34 H 29 H Rate Blood Pressure 140/81 147/88 147/88 O2 Sat by Pulse 100 100 100 Oximetry O2 Sat by Pulse Oximetry [ Assessment] 11/30/17 11/30/17 11/30/17 21:45 22:00 22:15 Temperature Pulse Rate 85 108 H 82 Respiratory 29 H 34 H 27 H Rate Blood Pressure 124/68 142/86 123/69 O2 Sat by Pulse 100 99 100 Oximetry O2 Sat by Pulse Oximetry [ Assessment] 11/30/17 11/30/17 11/30/17 22:30 22:32 22:45 Temperature Pulse Rate 91 H 95 H 82 Respiratory 29 H 30 H 28 H Rate Blood Pressure 135/75 135/75 121/64 O2 Sat by Pulse 100 100 94 Oximetry O2 Sat by Pulse Oximetry [ Assessment] 11/30/17 11/30/17 11/30/17 22:47 22:50 23:00 Temperature Pulse Rate 81 94 H 94 H Respiratory 28 H 30 H Rate Blood Pressure 121/64 142/85 O2 Sat by Pulse 95 100 100 Oximetry O2 Sat by Pulse Oximetry [ Assessment] 11/30/17 11/30/17 11/30/17 23:01 23:15 23:22 Temperature 98.5 F Pulse Rate 100 H 102 H Respiratory 29 H 31 H Rate Blood Pressure 142/85 150/86 O2 Sat by Pulse 100 99 Oximetry O2 Sat by Pulse Oximetry [ Assessment] 11/30/17 11/30/17 12/01/17 23:30 23:46 00:00 Temperature Pulse Rate 81 113 H 108 H Respiratory 28 H 38 H 36 H Rate Blood Pressure 127/71 127/71 145/83 O2 Sat by Pulse 100 94 92 Oximetry O2 Sat by Pulse Oximetry [ Assessment] 12/01/17 12/01/17 12/01/17 00:15 00:30 00:46 Temperature Pulse Rate 110 H 108 H 87 Respiratory 36 H 35 H 28 H Rate Blood Pressure 156/89 155/86 112/66 O2 Sat by Pulse 98 99 98 Oximetry O2 Sat by Pulse Oximetry [ Assessment] 12/01/17 12/01/17 12/01/17 01:00 01:15 01:30 Temperature Pulse Rate 108 H 113 H 109 H Respiratory 34 H 38 H 36 H Rate Blood Pressure 155/87 160/98 146/84 O2 Sat by Pulse 99 97 96 Oximetry O2 Sat by Pulse Oximetry [ Assessment] 12/01/17 12/01/17 12/01/17 01:45 01:50 02:00 Temperature Pulse Rate 109 H 94 H 100 H Respiratory 37 H 22 Rate Blood Pressure 153/92 137/88 O2 Sat by Pulse 99 100 99 Oximetry O2 Sat by Pulse Oximetry [ Assessment] 12/01/17 12/01/17 12/01/17 02:16 02:30 02:45 Temperature Pulse Rate 112 H 88 105 H Respiratory 37 H 29 H 28 H Rate Blood Pressure 169/96 113/68 128/82 O2 Sat by Pulse 98 97 92 Oximetry O2 Sat by Pulse Oximetry [ Assessment] 12/01/17 12/01/17 12/01/17 02:50 03:00 03:15 Temperature Pulse Rate 104 H 94 H Respiratory 31 H 30 H Rate Blood Pressure 128/82 110/61 O2 Sat by Pulse 100 98 100 Oximetry O2 Sat by Pulse Oximetry [ Assessment] 12/01/17 12/01/17 12/01/17 03:27 03:30 03:45 Temperature 98.4 F Pulse Rate 107 H 112 H Respiratory 35 H 37 H Rate Blood Pressure 133/80 152/82 O2 Sat by Pulse 100 100 Oximetry O2 Sat by Pulse Oximetry [ Assessment] 12/01/17 12/01/17 12/01/17 04:00 04:15 04:30 Temperature Pulse Rate 103 H 108 H 91 H Respiratory 34 H 36 H 24 Rate Blood Pressure 162/85 157/85 111/63 O2 Sat by Pulse 100 100 97 Oximetry O2 Sat by Pulse Oximetry [ Assessment] 12/01/17 12/01/17 12/01/17 04:45 04:50 05:00 Temperature Pulse Rate 94 H 107 H 103 H Respiratory 29 H 34 H Rate Blood Pressure 111/61 121/74 O2 Sat by Pulse 96 100 100 Oximetry O2 Sat by Pulse Oximetry [ Assessment] 12/01/17 12/01/17 12/01/17 05:15 05:30 05:45 Temperature Pulse Rate 85 105 H 106 H Respiratory 30 H 32 H 37 H Rate Blood Pressure 120/64 145/79 141/82 O2 Sat by Pulse 99 100 96 Oximetry O2 Sat by Pulse Oximetry [ Assessment] 12/01/17 12/01/17 12/01/17 06:00 06:05 06:15 Temperature Pulse Rate 107 H 94 H Respiratory 33 H 30 H Rate Blood Pressure 141/80 125/67 O2 Sat by Pulse 100 100 100 Oximetry O2 Sat by Pulse Oximetry [ Assessment] Constitutional: other (s/p trach, awake) Eyes: non-icteric ENT: oropharynx moist Neck: supple Effort: normal Ascultation: Bilateral: clear, rhonchi (sporadic), other (coarse BS bilaterally) Cardiovascular: regular rate and rhythm (no mrg) Gastrointestinal: normoactive bowel sounds, soft, non-tender, other (distended but better after drainage) Integumentary: normal Extremities: no cyanosis, pink and warm, anasarca Neurologic: other (L hemiparesis) Psychiatric: other (unable to assess) CBC and BMP: 12/01/17 04:09 12/01/17 04:09 ABG, PT/INR, D-dimer: ABG POC ABG pH 7.505 (7.35-7.45) H 11/23/17 04:56 POC ABG pCO2 26.3 (35-45) L 11/23/17 04:56 POC ABG pO2 100 (80-105) 11/23/17 04:56 POC ABG HCO3 20.8 11/23/17 04:56 POC ABG Total CO2 22 11/23/17 04:56 POC ABG O2 Sat 98 11/23/17 04:56 PT/INR, D-dimer PT 23.6 Sec. (12.2-14.9) H 11/26/17 06:29 INR 1.96 (0.87-1.13) H 11/26/17 06:29 Abnormal lab findings: Abnormal Labs 11/11/17 11/11/17 11/11/17 23:18 23:20 23:20 WBC RBC Hgb 10.4 L Hct 32.6 L D MCV MCH 27 L MCHC RDW 17.4 H Plt Count 105 L Lymph % (Auto) O'Brien % (Auto) Lymph # O'Brien # Seg Neutrophils % Seg Neuts % (Manual) Lymphocytes % (Manual) 8.0 L Monocytes % (Manual) Nucleated RBC % 1.0 H Seg Neutrophils # Seg Neutrophils # Man Lymphocytes # (Manual) 0.7 L Monocytes # (Manual) PT INR POC ABG pH 7.550 H POC ABG pCO2 31.6 L POC ABG pO2 Sodium 146 H Potassium Chloride Carbon Dioxide BUN 26 H Creatinine 1.7 H D Glucose 133 H POC Glucose Lactic Acid Calcium Magnesium AST ALT Alkaline Phosphatase Troponin T 0.117 H* C-Reactive Protein Total Protein Albumin 2.5 L LDL Cholesterol Direct 42 L HDL Cholesterol 24 L Hepatitis C Antibody Crossmatch 11/11/17 11/12/17 11/12/17 23:20 00:23 00:23 WBC RBC Hgb Hct MCV MCH MCHC RDW Plt Count Lymph % (Auto) O[place]Brien % (Auto) Lymph # O[place]Brien # Seg Neutrophils % Seg Neuts % (Manual) Lymphocytes % (Manual) Monocytes % (Manual) Nucleated RBC % Seg Neutrophils # Seg Neutrophils # Man Lymphocytes # (Manual) Monocytes # (Manual) PT 16.7 H INR 1.28 H POC ABG pH POC ABG pCO2 POC ABG pO2 Sodium Potassium Chloride Carbon Dioxide BUN Creatinine Glucose POC Glucose Lactic Acid 3.20 H* Calcium Magnesium AST ALT Alkaline Phosphatase Troponin T C-Reactive Protein 25.70 H Total Protein Albumin LDL Cholesterol Direct HDL Cholesterol Hepatitis C Antibody Crossmatch 11/12/17 11/12/17 11/12/17 00:46 01:27 01:27 WBC RBC Hgb Hct MCV MCH MCHC RDW Plt Count Lymph % (Auto) O[place]Brien % (Auto) Lymph # O[place]Brien # Seg Neutrophils % Seg Neuts % (Manual) Lymphocytes % (Manual) Monocytes % (Manual) Nucleated RBC % Seg Neutrophils # Seg Neutrophils # Man Lymphocytes # (Manual) Monocytes # (Manual) PT INR POC ABG pH 7.495 H POC ABG pCO2 32.0 L POC ABG pO2 64 L Sodium Potassium Chloride Carbon Dioxide BUN Creatinine Glucose POC Glucose Lactic Acid 3.70 H* Calcium Magnesium AST ALT Alkaline Phosphatase Troponin T 0.096 H C-Reactive Protein Total Protein Albumin LDL Cholesterol Direct HDL Cholesterol Hepatitis C Antibody Crossmatch 11/12/17 11/12/17 11/12/17 03:21 04:50 06:27 WBC RBC Hgb Hct MCV MCH MCHC RDW Plt Count Lymph % (Auto) O[place]Brien % (Auto) Lymph # O[place]Brien # Seg Neutrophils % Seg Neuts % (Manual) Lymphocytes % (Manual) Monocytes % (Manual) Nucleated RBC % Seg Neutrophils # Seg Neutrophils # Man Lymphocytes # (Manual) Monocytes # (Manual) PT INR POC ABG pH POC ABG pCO2 POC ABG pO2 109 H Sodium Potassium Chloride Carbon Dioxide BUN Creatinine Glucose POC Glucose Lactic Acid 3.80 H* 2.20 H* Calcium Magnesium AST ALT Alkaline Phosphatase Troponin T C-Reactive Protein Total Protein Albumin LDL Cholesterol Direct HDL Cholesterol Hepatitis C Antibody Crossmatch 11/12/17 11/12/17 11/12/17 09:24 09:24 09:24 WBC RBC Hgb 10.4 L Hct 33.4 L MCV MCH MCHC RDW Plt Count Lymph % (Auto) O[place]Brien % (Auto) Lymph # O[place] # Seg Neutrophils % Seg Neuts % (Manual) Lymphocytes % (Manual) Monocytes % (Manual) Nucleated RBC % Seg Neutrophils # Seg Neutrophils # Man Lymphocytes # (Manual) Monocytes # (Manual) PT INR POC ABG pH POC ABG pCO2 POC ABG pO2 Sodium Potassium Chloride Carbon Dioxide BUN Creatinine Glucose POC Glucose Lactic Acid 2.90 H* Calcium Magnesium AST ALT Alkaline Phosphatase Troponin T 0.091 H C-Reactive Protein Total Protein Albumin LDL Cholesterol Direct HDL Cholesterol Hepatitis C Antibody Crossmatch 11/12/17 11/12/17 11/12/17 12:56 20:03 Unknown WBC RBC Hgb Hct MCV MCH MCHC RDW Plt Count Lymph % (Auto) O[place]Brien % (Auto) Lymph # O[place]Brien # Seg Neutrophils % Seg Neuts % (Manual) Lymphocytes % (Manual) Monocytes % (Manual) Nucleated RBC % Seg Neutrophils # Seg Neutrophils # Man Lymphocytes # (Manual) Monocytes # (Manual) PT INR POC ABG pH POC ABG pCO2 POC ABG pO2 Sodium Potassium Chloride Carbon Dioxide BUN Creatinine Glucose POC Glucose Lactic Acid 3.60 H* Calcium Magnesium AST ALT Alkaline Phosphatase Troponin T 0.102 H* 0.156 H* D C-Reactive Protein Total Protein Albumin LDL Cholesterol Direct HDL Cholesterol Hepatitis C Antibody Crossmatch 11/12/17 11/13/17 11/13/17 Unknown 04:50 04:50 WBC 12.2 H RBC 3.51 L Hgb 9.3 L Hct 30.1 L MCV MCH 26 L MCHC 31 L RDW 18.0 H Plt Count 128 L Lymph % (Auto) 8.6 L O[place]Brien % (Auto) 11.1 H Lymph # 1.1 L O'Brien # 1.4 H Seg Neutrophils % 80.1 H Seg Neuts % (Manual) Lymphocytes % (Manual) Monocytes % (Manual) Nucleated RBC % Seg Neutrophils # 9.8 H Seg Neutrophils # Man Lymphocytes # (Manual) Monocytes # (Manual) PT INR POC ABG pH POC ABG pCO2 POC ABG pO2 Sodium 149 H Potassium 5.1 H Chloride 114.4 H Carbon Dioxide 18 L BUN 52 H Creatinine 3.3 H D Glucose 129 H POC Glucose Lactic Acid Calcium 7.9 L Magnesium AST ALT Alkaline Phosphatase Troponin T 0.098 H C-Reactive Protein Total Protein Albumin LDL Cholesterol Direct HDL Cholesterol Hepatitis C Antibody Crossmatch 11/13/17 11/13/17 11/14/17 04:51 09:34 04:21 WBC RBC Hgb Hct MCV MCH MCHC RDW Plt Count Lymph % (Auto) O[place]Brien % (Auto) Lymph # O[place]Brien # Seg Neutrophils % Seg Neuts % (Manual) Lymphocytes % (Manual) Monocytes % (Manual) Nucleated RBC % Seg Neutrophils # Seg Neutrophils # Man Lymphocytes # (Manual) Monocytes # (Manual) PT INR POC ABG pH POC ABG pCO2 30.1 L 29.8 L POC ABG pO2 135 H Sodium Potassium Chloride Carbon Dioxide BUN Creatinine Glucose POC Glucose Lactic Acid 2.10 H* Calcium Magnesium AST ALT Alkaline Phosphatase Troponin T C-Reactive Protein Total Protein Albumin LDL Cholesterol Direct HDL Cholesterol Hepatitis C Antibody Crossmatch 11/15/17 11/15/17 11/16/17 04:52 15:50 05:17 WBC RBC Hgb Hct MCV MCH MCHC RDW Plt Count Lymph % (Auto) O[place]Brien % (Auto) Lymph # O[place]Brien # Seg Neutrophils % Seg Neuts % (Manual) Lymphocytes % (Manual) Monocytes % (Manual) Nucleated RBC % Seg Neutrophils # Seg Neutrophils # Man Lymphocytes # (Manual) Monocytes # (Manual) PT INR POC ABG pH POC ABG pCO2 29.5 L 31.5 L POC ABG pO2 115 H 122 H Sodium 154 H Potassium Chloride 117.9 H Carbon Dioxide 19 L BUN 87 H Creatinine 4.1 H Glucose POC Glucose Lactic Acid Calcium 8.1 L Magnesium AST ALT Alkaline Phosphatase Troponin T C-Reactive Protein Total Protein Albumin LDL Cholesterol Direct HDL Cholesterol Hepatitis C Antibody Crossmatch 11/16/17 11/17/17 11/17/17 16:37 04:07 10:00 WBC 14.7 H RBC 3.23 L Hgb 8.3 L Hct 28.1 L MCV MCH 26 L MCHC 30 L RDW 18.8 H Plt Count Lymph % (Auto) O[place]Brien % (Auto) Lymph # O[place]Brien # Seg Neutrophils % Seg Neuts % (Manual) 75 H Lymphocytes % (Manual) 8.0 L Monocytes % (Manual) Nucleated RBC % 1.0 H Seg Neutrophils # Seg Neutrophils # Man 11.0 H Lymphocytes # (Manual) Monocytes # (Manual) 0.9 H PT INR POC ABG pH POC ABG pCO2 POC ABG pO2 Sodium 153 H 155 H Potassium Chloride 117.3 H 119.4 H Carbon Dioxide 19 L 20 L BUN 90 H 89 H Creatinine 3.9 H 3.6 H Glucose 111 H 115 H POC Glucose Lactic Acid Calcium 8.1 L 8.0 L Magnesium AST ALT Alkaline Phosphatase Troponin T C-Reactive Protein Total Protein Albumin LDL Cholesterol Direct HDL Cholesterol Hepatitis C Antibody Crossmatch 11/18/17 11/18/17 11/18/17 04:34 04:34 04:34 WBC 15.5 H RBC 3.13 L Hgb 8.1 L Hct 26.3 L MCV MCH 26 L MCHC 31 L RDW 18.6 H Plt Count Lymph % (Auto) O[place]Brien % (Auto) Lymph # O[place]Brien # Seg Neutrophils % Seg Neuts % (Manual) 81.0 H Lymphocytes % (Manual) 7.0 L Monocytes % (Manual) Nucleated RBC % 1.0 H Seg Neutrophils # Seg Neutrophils # Man 12.6 H Lymphocytes # (Manual) 1.1 L Monocytes # (Manual) PT 16.7 H INR 1.30 H POC ABG pH POC ABG pCO2 POC ABG pO2 Sodium 155 H Potassium 3.2 L Chloride 121.0 H Carbon Dioxide 20 L BUN 74 H Creatinine 2.9 H Glucose 126 H POC Glucose Lactic Acid Calcium 7.9 L Magnesium AST ALT Alkaline Phosphatase Troponin T C-Reactive Protein Total Protein Albumin LDL Cholesterol Direct HDL Cholesterol Hepatitis C Antibody Crossmatch 11/19/17 11/19/17 11/20/17 04:44 04:44 00:38 WBC 19.0 H 22.2 H RBC 3.20 L 3.17 L Hgb 8.4 L 7.9 L Hct 27.9 L 26.4 L MCV 83 L MCH 26 L 25 L MCHC 30 L 30 L RDW 19.1 H 18.9 H Plt Count Lymph % (Auto) O[place]Brien % (Auto) Lymph # O[place]Brien # Seg Neutrophils % Seg Neuts % (Manual) 83.0 H Lymphocytes % (Manual) 3.0 L Monocytes % (Manual) 9.0 H Nucleated RBC % Seg Neutrophils # Seg Neutrophils # Man 18.4 H Lymphocytes # (Manual) 0.7 L Monocytes # (Manual) 2.0 H PT INR POC ABG pH POC ABG pCO2 POC ABG pO2 Sodium 152 H Potassium Chloride 117.1 H Carbon Dioxide 17 L BUN 66 H Creatinine 2.8 H Glucose 119 H POC Glucose Lactic Acid Calcium 7.8 L Magnesium 2.70 H AST ALT Alkaline Phosphatase Troponin T C-Reactive Protein Total Protein Albumin LDL Cholesterol Direct HDL Cholesterol Hepatitis C Antibody Crossmatch 11/20/17 11/20/17 11/20/17 03:29 04:48 13:38 WBC RBC Hgb Hct MCV MCH MCHC RDW Plt Count Lymph % (Auto) O[place]Brien % (Auto) Lymph # O[place]Brien # Seg Neutrophils % Seg Neuts % (Manual) Lymphocytes % (Manual) Monocytes % (Manual) Nucleated RBC % Seg Neutrophils # Seg Neutrophils # Man Lymphocytes # (Manual) Monocytes # (Manual) PT INR POC ABG pH POC ABG pCO2 29.4 L POC ABG pO2 Sodium 148 H Potassium 3.4 L Chloride 113.7 H Carbon Dioxide 18 L BUN 59 H Creatinine 2.7 H Glucose 113 H POC Glucose 128 H Lactic Acid Calcium 7.8 L Magnesium AST ALT Alkaline Phosphatase Troponin T C-Reactive Protein Total Protein Albumin LDL Cholesterol Direct HDL Cholesterol Hepatitis C Antibody Crossmatch 11/20/17 11/20/17 11/21/17 17:38 23:40 00:13 WBC RBC Hgb 8.4 L Hct 28.0 L MCV MCH MCHC RDW Plt Count Lymph % (Auto) O[place]Brien % (Auto) Lymph # O[place]Brien # Seg Neutrophils % Seg Neuts % (Manual) Lymphocytes % (Manual) Monocytes % (Manual) Nucleated RBC % Seg Neutrophils # Seg Neutrophils # Man Lymphocytes # (Manual) Monocytes # (Manual) PT INR POC ABG pH POC ABG pCO2 POC ABG pO2 Sodium Potassium Chloride Carbon Dioxide BUN Creatinine Glucose POC Glucose 115 H 145 H Lactic Acid Calcium Magnesium AST ALT Alkaline Phosphatase Troponin T C-Reactive Protein Total Protein Albumin LDL Cholesterol Direct HDL Cholesterol Hepatitis C Antibody Crossmatch 11/21/17 11/21/17 11/21/17 04:30 04:30 04:58 WBC 21.0 H RBC Hgb 9.6 L Hct 32.7 L MCV MCH 25 L MCHC 29 L RDW 19.7 H Plt Count 746 H Lymph % (Auto) O[place]Brien % (Auto) Lymph # O[place]Brien # Seg Neutrophils % Seg Neuts % (Manual) Lymphocytes % (Manual) Monocytes % (Manual) Nucleated RBC % Seg Neutrophils # Seg Neutrophils # Man Lymphocytes # (Manual) Monocytes # (Manual) PT INR POC ABG pH POC ABG pCO2 POC ABG pO2 Sodium Potassium Chloride 109.4 H Carbon Dioxide 14 L BUN 59 H Creatinine 3.0 H Glucose 137 H POC Glucose 132 H Lactic Acid Calcium 7.6 L Magnesium AST ALT Alkaline Phosphatase Troponin T C-Reactive Protein Total Protein Albumin LDL Cholesterol Direct HDL Cholesterol Hepatitis C Antibody Crossmatch 11/21/17 11/21/17 11/21/17 06:30 13:43 14:17 WBC 38.2 H RBC Hgb 9.0 L Hct 32.3 L MCV MCH 25 L MCHC 28 L RDW 20.0 H Plt Count 766 H Lymph % (Auto) O[place]Brien % (Auto) Lymph # O[place]Brien # Seg Neutrophils % Seg Neuts % (Manual) 85.0 H Lymphocytes % (Manual) 1.0 L Monocytes % (Manual) Nucleated RBC % 2.0 H Seg Neutrophils # Seg Neutrophils # Man 32.5 H Lymphocytes # (Manual) 0.4 L Monocytes # (Manual) 2.3 H PT INR POC ABG pH POC ABG pCO2 18.6 L POC ABG pO2 121 H Sodium 146 H Potassium Chloride 110.9 H Carbon Dioxide 11 L BUN 62 H Creatinine 4.0 H Glucose 64 L POC Glucose Lactic Acid Calcium 7.6 L Magnesium AST ALT Alkaline Phosphatase Troponin T C-Reactive Protein Total Protein Albumin LDL Cholesterol Direct HDL Cholesterol Hepatitis C Antibody Crossmatch 11/21/17 11/21/17 11/22/17 14:17 19:09 00:05 WBC RBC Hgb Hct MCV MCH MCHC RDW Plt Count Lymph % (Auto) O[place]Brien % (Auto) Lymph # O[place]Brien # Seg Neutrophils % Seg Neuts % (Manual) Lymphocytes % (Manual) Monocytes % (Manual) Nucleated RBC % Seg Neutrophils # Seg Neutrophils # Man Lymphocytes # (Manual) Monocytes # (Manual) PT INR POC ABG pH POC ABG pCO2 20.0 L POC ABG pO2 Sodium Potassium Chloride Carbon Dioxide BUN Creatinine Glucose POC Glucose 127 H Lactic Acid 7.70 H* Calcium Magnesium AST ALT Alkaline Phosphatase Troponin T C-Reactive Protein Total Protein Albumin LDL Cholesterol Direct HDL Cholesterol Hepatitis C Antibody Crossmatch 11/22/17 11/22/17 11/22/17 03:53 06:00 07:25 WBC RBC Hgb Hct MCV MCH MCHC RDW Plt Count Lymph % (Auto) [place] % (Auto) Lymph # [place]Brien # Seg Neutrophils % Seg Neuts % (Manual) Lymphocytes % (Manual) Monocytes % (Manual) Nucleated RBC % Seg Neutrophils # Seg Neutrophils # Man Lymphocytes # (Manual) Monocytes # (Manual) PT INR POC ABG pH POC ABG pCO2 22.2 L POC ABG pO2 Sodium 147 H Potassium Chloride 111.9 H Carbon Dioxide 16 L BUN 72 H Creatinine 5.1 H Glucose 181 H POC Glucose 180 H Lactic Acid Calcium 7.1 L Magnesium AST ALT Alkaline Phosphatase Troponin T C-Reactive Protein Total Protein Albumin LDL Cholesterol Direct HDL Cholesterol Hepatitis C Antibody Crossmatch 11/22/17 11/22/17 11/22/17 07:25 07:25 12:05 WBC 31.4 H RBC 3.22 L Hgb 8.0 L Hct 26.7 L MCV 83 L MCH 25 L MCHC 30 L RDW 19.4 H Plt Count 602 H Lymph % (Auto) [place] % (Auto) Lymph # O[place]Brien # Seg Neutrophils % Seg Neuts % (Manual) Lymphocytes % (Manual) Monocytes % (Manual) Nucleated RBC % Seg Neutrophils # Seg Neutrophils # Man Lymphocytes # (Manual) Monocytes # (Manual) PT INR POC ABG pH POC ABG pCO2 POC ABG pO2 Sodium Potassium Chloride Carbon Dioxide BUN Creatinine Glucose POC Glucose 182 H Lactic Acid 5.00 H* Calcium Magnesium AST ALT Alkaline Phosphatase Troponin T C-Reactive Protein Total Protein Albumin LDL Cholesterol Direct HDL Cholesterol Hepatitis C Antibody Crossmatch 11/22/17 11/23/17 11/23/17 19:45 01:28 04:56 WBC RBC Hgb Hct MCV MCH MCHC RDW Plt Count Lymph % (Auto) [place] % (Auto) Lymph # [place]Brien # Seg Neutrophils % Seg Neuts % (Manual) Lymphocytes % (Manual) Monocytes % (Manual) Nucleated RBC % Seg Neutrophils # Seg Neutrophils # Man Lymphocytes # (Manual) Monocytes # (Manual) PT INR POC ABG pH 7.505 H POC ABG pCO2 26.3 L POC ABG pO2 Sodium Potassium Chloride Carbon Dioxide BUN Creatinine Glucose POC Glucose 165 H Lactic Acid Calcium Magnesium AST ALT Alkaline Phosphatase Troponin T C-Reactive Protein Total Protein Albumin LDL Cholesterol Direct HDL Cholesterol Hepatitis C Antibody Reactive A Crossmatch 11/23/17 11/23/17 11/23/17 07:05 12:32 17:53 WBC RBC Hgb Hct MCV MCH MCHC RDW Plt Count Lymph % (Auto) [place] % (Auto) Lymph # O[place]Brien # Seg Neutrophils % Seg Neuts % (Manual) Lymphocytes % (Manual) Monocytes % (Manual) Nucleated RBC % Seg Neutrophils # Seg Neutrophils # Man Lymphocytes # (Manual) Monocytes # (Manual) PT INR POC ABG pH POC ABG pCO2 POC ABG pO2 Sodium Potassium Chloride Carbon Dioxide 18 L BUN 61 H Creatinine 4.2 H Glucose 153 H POC Glucose 138 H 173 H Lactic Acid Calcium 7.5 L Magnesium AST ALT Alkaline Phosphatase Troponin T C-Reactive Protein Total Protein Albumin LDL Cholesterol Direct HDL Cholesterol Hepatitis C Antibody Crossmatch 11/23/17 11/24/17 11/24/17 23:41 05:42 05:42 WBC 21.5 H RBC 2.48 L Hgb 6.2 L Hct 20.3 L D MCV 82 L MCH 25 L MCHC 31 L RDW 18.9 H Plt Count Lymph % (Auto) [place] % (Auto) Lymph # O[place]Brien # Seg Neutrophils % Seg Neuts % (Manual) 94.0 H Lymphocytes % (Manual) 3.0 L Monocytes % (Manual) Nucleated RBC % Seg Neutrophils # Seg Neutrophils # Man 20.2 H Lymphocytes # (Manual) 0.6 L Monocytes # (Manual) PT INR POC ABG pH POC ABG pCO2 POC ABG pO2 Sodium 149 H Potassium 2.8 L* D Chloride 113.9 H Carbon Dioxide 19 L BUN 31 H Creatinine 2.3 H Glucose 103 H POC Glucose 133 H Lactic Acid Calcium 5.3 L* D Magnesium 1.30 L AST ALT Alkaline Phosphatase Troponin T C-Reactive Protein Total Protein Albumin LDL Cholesterol Direct HDL Cholesterol Hepatitis C Antibody Crossmatch 11/24/17 11/24/17 11/24/17 05:42 08:27 08:27 WBC RBC Hgb Hct MCV MCH MCHC RDW Plt Count Lymph % (Auto) [place] % (Auto) Lymph # O[place] # Seg Neutrophils % Seg Neuts % (Manual) Lymphocytes % (Manual) Monocytes % (Manual) Nucleated RBC % Seg Neutrophils # Seg Neutrophils # Man Lymphocytes # (Manual) Monocytes # (Manual) PT INR POC ABG pH POC ABG pCO2 POC ABG pO2 Sodium Potassium Chloride Carbon Dioxide BUN Creatinine Glucose POC Glucose Lactic Acid 5.40 H* 5.20 H* Calcium Magnesium AST ALT Alkaline Phosphatase Troponin T C-Reactive Protein Total Protein Albumin LDL Cholesterol Direct HDL Cholesterol Hepatitis C Antibody Crossmatch See Detail 11/24/17 11/24/17 11/24/17 12:13 17:22 21:53 WBC 23.0 H RBC 3.32 L Hgb 8.8 L Hct 27.1 L D MCV 82 L MCH 26 L MCHC RDW 17.3 H Plt Count Lymph % (Auto) [place] % (Auto) Lymph # O[place]Brien # Seg Neutrophils % Seg Neuts % (Manual) Lymphocytes % (Manual) Monocytes % (Manual) Nucleated RBC % Seg Neutrophils # Seg Neutrophils # Man Lymphocytes # (Manual) Monocytes # (Manual) PT INR POC ABG pH POC ABG pCO2 POC ABG pO2 Sodium Potassium Chloride Carbon Dioxide BUN Creatinine Glucose POC Glucose 138 H 180 H Lactic Acid Calcium Magnesium AST ALT Alkaline Phosphatase Troponin T C-Reactive Protein Total Protein Albumin LDL Cholesterol Direct HDL Cholesterol Hepatitis C Antibody Crossmatch 11/24/17 11/24/17 11/25/17 21:53 23:28 04:19 WBC RBC Hgb Hct MCV MCH MCHC RDW Plt Count Lymph % (Auto) [place] % (Auto) Lymph # [place] # Seg Neutrophils % Seg Neuts % (Manual) Lymphocytes % (Manual) Monocytes % (Manual) Nucleated RBC % Seg Neutrophils # Seg Neutrophils # Man Lymphocytes # (Manual) Monocytes # (Manual) PT INR POC ABG pH POC ABG pCO2 POC ABG pO2 Sodium Potassium Chloride 96.3 L Carbon Dioxide BUN 28 H 31 H Creatinine 2.3 H 2.6 H Glucose 125 H 101 H POC Glucose 111 H Lactic Acid Calcium 7.5 L D 7.4 L Magnesium AST 170 H ALT 179 H Alkaline Phosphatase 175 H Troponin T C-Reactive Protein Total Protein 5.5 L Albumin 1.8 L LDL Cholesterol Direct HDL Cholesterol Hepatitis C Antibody Crossmatch 11/25/17 11/25/17 11/26/17 04:19 04:19 06:29 WBC 22.5 H RBC 3.48 L Hgb 9.1 L Hct 28.3 L MCV 81 L MCH 26 L MCHC RDW 17.4 H Plt Count Lymph % (Auto) O'Brien % (Auto) Lymph # O'Brien # Seg Neutrophils % Seg Neuts % (Manual) Lymphocytes % (Manual) Monocytes % (Manual) Nucleated RBC % Seg Neutrophils # Seg Neutrophils # Man Lymphocytes # (Manual) Monocytes # (Manual) PT 23.6 H INR 1.96 H POC ABG pH POC ABG pCO2 POC ABG pO2 Sodium Potassium Chloride Carbon Dioxide BUN 31 H Creatinine 2.6 H Glucose 101 H POC Glucose Lactic Acid Calcium 7.5 L Magnesium AST ALT Alkaline Phosphatase Troponin T C-Reactive Protein Total Protein Albumin LDL Cholesterol Direct HDL Cholesterol Hepatitis C Antibody Crossmatch 11/26/17 11/27/17 11/27/17 06:34 04:06 04:06 WBC 11.3 H RBC 3.13 L Hgb 8.4 L Hct 25.8 L MCV 82 L MCH 27 L MCHC RDW 17.7 H Plt Count Lymph % (Auto) 7.4 L O'Brien % (Auto) Lymph # 0.8 L O'Brien # Seg Neutrophils % 83.7 H Seg Neuts % (Manual) Lymphocytes % (Manual) Monocytes % (Manual) Nucleated RBC % Seg Neutrophils # 9.5 H Seg Neutrophils # Man Lymphocytes # (Manual) Monocytes # (Manual) PT INR POC ABG pH POC ABG pCO2 POC ABG pO2 Sodium Potassium Chloride 97.9 L Carbon Dioxide BUN 43 H 29 H Creatinine 3.5 H 2.9 H Glucose POC Glucose Lactic Acid Calcium 7.5 L 8.1 L Magnesium AST ALT Alkaline Phosphatase Troponin T C-Reactive Protein Total Protein Albumin LDL Cholesterol Direct HDL Cholesterol Hepatitis C Antibody Crossmatch 11/27/17 11/28/17 11/28/17 18:11 00:16 03:50 WBC RBC Hgb Hct MCV MCH MCHC RDW Plt Count Lymph % (Auto) O'Brien % (Auto) Lymph # O'Brien # Seg Neutrophils % Seg Neuts % (Manual) Lymphocytes % (Manual) Monocytes % (Manual) Nucleated RBC % Seg Neutrophils # Seg Neutrophils # Man Lymphocytes # (Manual) Monocytes # (Manual) PT INR POC ABG pH POC ABG pCO2 POC ABG pO2 Sodium Potassium Chloride Carbon Dioxide BUN 39 H Creatinine 4.1 H Glucose 108 H POC Glucose 110 H 124 H Lactic Acid Calcium 7.9 L Magnesium AST ALT Alkaline Phosphatase Troponin T C-Reactive Protein Total Protein Albumin LDL Cholesterol Direct HDL Cholesterol Hepatitis C Antibody Crossmatch 11/28/17 11/28/17 11/28/17 05:03 11:36 17:42 WBC RBC Hgb Hct MCV MCH MCHC RDW Plt Count Lymph % (Auto) O'Brien % (Auto) Lymph # O'Brien # Seg Neutrophils % Seg Neuts % (Manual) Lymphocytes % (Manual) Monocytes % (Manual) Nucleated RBC % Seg Neutrophils # Seg Neutrophils # Man Lymphocytes # (Manual) Monocytes # (Manual) PT INR POC ABG pH POC ABG pCO2 POC ABG pO2 Sodium Potassium Chloride Carbon Dioxide BUN Creatinine Glucose POC Glucose 134 H 114 H 119 H Lactic Acid Calcium Magnesium AST ALT Alkaline Phosphatase Troponin T C-Reactive Protein Total Protein Albumin LDL Cholesterol Direct HDL Cholesterol Hepatitis C Antibody Crossmatch 11/29/17 11/29/17 11/29/17 00:22 05:25 05:25 WBC 12.3 H RBC 3.34 L Hgb 8.6 L Hct 27.3 L MCV 82 L MCH 26 L MCHC RDW 18.5 H Plt Count Lymph % (Auto) 3.7 L O'Brien % (Auto) 7.7 H Lymph # 0.5 L O'Brien # 1.0 H Seg Neutrophils % 86.5 H Seg Neuts % (Manual) Lymphocytes % (Manual) Monocytes % (Manual) Nucleated RBC % Seg Neutrophils # 10.7 H Seg Neutrophils # Man Lymphocytes # (Manual) Monocytes # (Manual) PT INR POC ABG pH POC ABG pCO2 POC ABG pO2 Sodium Potassium Chloride Carbon Dioxide BUN 29 H Creatinine 3.5 H Glucose 109 H POC Glucose 137 H Lactic Acid Calcium 7.8 L Magnesium AST ALT Alkaline Phosphatase Troponin T C-Reactive Protein Total Protein Albumin LDL Cholesterol Direct HDL Cholesterol Hepatitis C Antibody Crossmatch 11/29/17 11/30/17 11/30/17 05:26 00:26 04:17 WBC RBC Hgb Hct MCV MCH MCHC RDW Plt Count Lymph % (Auto) O'Brien % (Auto) Lymph # O'Brien # Seg Neutrophils % Seg Neuts % (Manual) Lymphocytes % (Manual) Monocytes % (Manual) Nucleated RBC % Seg Neutrophils # Seg Neutrophils # Man Lymphocytes # (Manual) Monocytes # (Manual) PT INR POC ABG pH POC ABG pCO2 POC ABG pO2 Sodium Potassium Chloride Carbon Dioxide BUN 38 H Creatinine 4.3 H Glucose 109 H POC Glucose 129 H 152 H Lactic Acid Calcium 7.8 L Magnesium AST ALT Alkaline Phosphatase Troponin T C-Reactive Protein Total Protein Albumin LDL Cholesterol Direct HDL Cholesterol Hepatitis C Antibody Crossmatch 11/30/17 11/30/17 11/30/17 12:17 16:23 23:35 WBC RBC Hgb Hct MCV MCH MCHC RDW Plt Count Lymph % (Auto) O'Brien % (Auto) Lymph # O'Brien # Seg Neutrophils % Seg Neuts % (Manual) Lymphocytes % (Manual) Monocytes % (Manual) Nucleated RBC % Seg Neutrophils # Seg Neutrophils # Man Lymphocytes # (Manual) Monocytes # (Manual) PT INR POC ABG pH POC ABG pCO2 POC ABG pO2 Sodium Potassium Chloride Carbon Dioxide BUN Creatinine Glucose POC Glucose 170 H 114 H 122 H Lactic Acid Calcium Magnesium AST ALT Alkaline Phosphatase Troponin T C-Reactive Protein Total Protein Albumin LDL Cholesterol Direct HDL Cholesterol Hepatitis C Antibody Crossmatch 12/01/17 12/01/17 04:09 04:09 WBC 14.1 H RBC 3.32 L Hgb 8.6 L Hct 27.0 L MCV 81 L MCH 26 L MCHC RDW 18.7 H Plt Count Lymph % (Auto) 5.5 L O'Brien % (Auto) 9.7 H Lymph # 0.8 L O'Brien # 1.4 H Seg Neutrophils % 82.9 H Seg Neuts % (Manual) Lymphocytes % (Manual) Monocytes % (Manual) Nucleated RBC % Seg Neutrophils # 11.7 H Seg Neutrophils # Man Lymphocytes # (Manual) Monocytes # (Manual) PT INR POC ABG pH POC ABG pCO2 POC ABG pO2 Sodium Potassium 3.4 L Chloride Carbon Dioxide BUN 21 H Creatinine 3.0 H Glucose 108 H POC Glucose Lactic Acid Calcium 8.0 L Magnesium AST ALT Alkaline Phosphatase Troponin T C-Reactive Protein Total Protein Albumin LDL Cholesterol Direct HDL Cholesterol Hepatitis C Antibody Crossmatch
--- NOTE | 2017-12-01 09:01 | Progress Note ---
Assessment and Plan Assessment * Acute kidney injury secondary to ATN --Intermittent HD started on 11/23/17 * Sepsis secondary to peritonitis/PEG malpositioning --RUQ/LUQ drains: Enterobacter, Heather (non albicans) * Aspiration pneumonitis related to above * Anemia * Acute CVA * Carotid artery disease s/p CEA * Encephalopathy Plan: * No evidence of renal recovery * Continue HD MWF. UF as tolerated * Abx per ID * IR and surgery notes reviewed * Strict I/O * Avoid potential nephrptoxins * Dose medications for renal function * Replete lytes prn * Avoid nephrotoxins Subjective Date of service: 12/01/17 Principal diagnosis: Acute hypoxic respiratory failure due to Pneumonia on MV> 96 hours s/p Trach Interval history: No acute events overnight Objective - Vital Signs Vital signs: Vital Signs - 12hr 11/30/17 11/30/17 11/30/17 21:15 21:30 21:45 Temperature Pulse Rate 107 H 110 H 85 Pulse Rate [ Right From Monitor] Respiratory 34 H 29 H 29 H Rate Blood Pressure 147/88 147/88 124/68 O2 Sat by Pulse 100 100 100 Oximetry 11/30/17 11/30/17 11/30/17 22:00 22:15 22:30 Temperature Pulse Rate 108 H 82 91 H Pulse Rate [ Right From Monitor] Respiratory 34 H 27 H 29 H Rate Blood Pressure 142/86 123/69 135/75 O2 Sat by Pulse 99 100 100 Oximetry 11/30/17 11/30/17 11/30/17 22:32 22:45 22:47 Temperature Pulse Rate 95 H 82 81 Pulse Rate [ Right From Monitor] Respiratory 30 H 28 H 28 H Rate Blood Pressure 135/75 121/64 121/64 O2 Sat by Pulse 100 94 95 Oximetry 11/30/17 11/30/17 11/30/17 22:50 23:00 23:01 Temperature Pulse Rate 94 H 94 H 100 H Pulse Rate [ Right From Monitor] Respiratory 30 H 29 H Rate Blood Pressure 142/85 142/85 O2 Sat by Pulse 100 100 100 Oximetry 11/30/17 11/30/17 11/30/17 23:15 23:22 23:30 Temperature 98.5 F Pulse Rate 102 H 81 Pulse Rate [ Right From Monitor] Respiratory 31 H 28 H Rate Blood Pressure 150/86 127/71 O2 Sat by Pulse 99 100 Oximetry 11/30/17 12/01/17 12/01/17 23:46 00:00 00:15 Temperature Pulse Rate 113 H 108 H 110 H Pulse Rate [ Right From Monitor] Respiratory 38 H 36 H 36 H Rate Blood Pressure 127/71 145/83 156/89 O2 Sat by Pulse 94 92 98 Oximetry 12/01/17 12/01/17 12/01/17 00:30 00:46 01:00 Temperature Pulse Rate 108 H 87 108 H Pulse Rate [ Right From Monitor] Respiratory 35 H 28 H 34 H Rate Blood Pressure 155/86 112/66 155/87 O2 Sat by Pulse 99 98 99 Oximetry 12/01/17 12/01/17 12/01/17 01:15 01:30 01:45 Temperature Pulse Rate 113 H 109 H 109 H Pulse Rate [ Right From Monitor] Respiratory 38 H 36 H 37 H Rate Blood Pressure 160/98 146/84 153/92 O2 Sat by Pulse 97 96 99 Oximetry 12/01/17 12/01/17 12/01/17 01:50 02:00 02:16 Temperature Pulse Rate 94 H 100 H 112 H Pulse Rate [ Right From Monitor] Respiratory 22 37 H Rate Blood Pressure 137/88 169/96 O2 Sat by Pulse 100 99 98 Oximetry 12/01/17 12/01/17 12/01/17 02:30 02:45 02:50 Temperature Pulse Rate 88 105 H Pulse Rate [ Right From Monitor] Respiratory 29 H 28 H Rate Blood Pressure 113/68 128/82 O2 Sat by Pulse 97 92 100 Oximetry 12/01/17 12/01/17 12/01/17 03:00 03:15 03:27 Temperature 98.4 F Pulse Rate 104 H 94 H Pulse Rate [ Right From Monitor] Respiratory 31 H 30 H Rate Blood Pressure 128/82 110/61 O2 Sat by Pulse 98 100 Oximetry 12/01/17 12/01/17 12/01/17 03:30 03:45 04:00 Temperature Pulse Rate 107 H 112 H 103 H Pulse Rate [ Right From Monitor] Respiratory 35 H 37 H 34 H Rate Blood Pressure 133/80 152/82 162/85 O2 Sat by Pulse 100 100 100 Oximetry 12/01/17 12/01/17 12/01/17 04:15 04:30 04:45 Temperature Pulse Rate 108 H 91 H 94 H Pulse Rate [ Right From Monitor] Respiratory 36 H 24 29 H Rate Blood Pressure 157/85 111/63 111/61 O2 Sat by Pulse 100 97 96 Oximetry 12/01/17 12/01/17 12/01/17 04:50 05:00 05:15 Temperature Pulse Rate 107 H 103 H 85 Pulse Rate [ Right From Monitor] Respiratory 34 H 30 H Rate Blood Pressure 121/74 120/64 O2 Sat by Pulse 100 100 99 Oximetry 12/01/17 12/01/17 12/01/17 05:30 05:45 06:00 Temperature Pulse Rate 105 H 106 H 107 H Pulse Rate [ Right From Monitor] Respiratory 32 H 37 H 33 H Rate Blood Pressure 145/79 141/82 141/80 O2 Sat by Pulse 100 96 100 Oximetry 12/01/17 12/01/17 12/01/17 06:05 06:15 06:30 Temperature Pulse Rate 94 H 109 H Pulse Rate [ Right From Monitor] Respiratory 30 H 35 H Rate Blood Pressure 125/67 144/83 O2 Sat by Pulse 100 100 99 Oximetry 12/01/17 12/01/17 12/01/17 06:45 07:00 07:15 Temperature Pulse Rate 108 H 113 H 109 H Pulse Rate [ Right From Monitor] Respiratory 35 H 37 H 36 H Rate Blood Pressure 155/84 142/85 149/85 O2 Sat by Pulse 100 98 100 Oximetry 12/01/17 12/01/17 12/01/17 07:30 07:45 08:00 Temperature 98.9 F Pulse Rate 108 H 101 H 105 H Pulse Rate [ 105 H Right From Monitor] Respiratory 38 H 34 H 25 H Rate Blood Pressure 149/81 139/74 145/89 O2 Sat by Pulse 99 97 100 Oximetry 12/01/17 12/01/17 08:16 08:30 Temperature Pulse Rate 108 H 100 H Pulse Rate [ Right From Monitor] Respiratory 17 31 H Rate Blood Pressure 155/90 151/89 O2 Sat by Pulse 100 100 Oximetry - General Appearance General appearance: well-developed, well-nourished EENT: ATNC Neck: other (trach) Respiratory: Present: Decreased Breath Sounds Cardiology: regular, S1S2 Gastrointestinal: other (Drains x 3; PEG tube) Integumentary: no rash, warm and dry Neurologic: other (nonresponsive) Musculoskeletal: other (1-2+ pedal edema) - Lab 12/01/17 04:09 12/01/17 04:09 Most recent lab results Calcium 8.0 mg/dL (8.4-10.2) L 12/01/17 04:09 Magnesium 2.00 mg/dL (1.7-2.3) 11/24/17 21:53
[2017-12-01] MEDS ORDERED: MERREM 1,000 MG in NACL 0.9% 100 ML IV SCH (10:00)
[2017-12-01] MEDS: DIFLUCAN 200 MG/100 ML BAG IV SCH (10:03)
[2017-12-01] MEDS: PROTONIX (nf) FEEDTUBE SCH ×2 (10:04→22:01)
--- NOTE | 2017-12-01 10:07 | Progress Note ---
Assessment and Plan - Patient Problems (1) Gastrostomy malfunction Current Visit: Yes Status: Acute Plan to address problem: Pt is stable. After reviewing the records, discussing the case with multiple attendings, and seeing the patient, it is clear that we do not have an acute perforation. Most likely, the PEG tube started to migrate out of position prior to 11/18 as evidenced by no PEG button seen on EGD and no obvious hole in the stomach. As the contrast is restricted to certain areas in the abdomen, the fluid is loculated. The "ascites" may be tube feeds and/or reactionary fluid. Regardless, patient is not showing signs of obvious peritonitis. In this case, it may be prudent to try placing a few drains in the abdomen to remove that largest collections. I have already discussed this case with Dr. Moreira who agreed to review the case and see if that was possible. The alternative would be to take the patient for an ex-lap and washout the abdomen. I'm concerned that there may be a lot of inflammatory changes in the abdomen which would put him at risk for bowel injuries from the procedure. Therefore, this will be our back-up plan if the drains do not resolve the problem. As for nutritional access , for now, I would recommend an NGT. I doubt he has an active leak, so there is no need to test the stomach prior to using it. I have explained this plan in detail to the daughter (Jannette) and the attendings from ICU, GI, and hospitalist service. All were in agreement. - 11/25/17 Initial Consult Pt appears stable. Drain output only from LUQ drain. Aware of WBC slowly rising. Discussed case with Dr. Stephens. Plan to rescan abd/pel with PO and possible IV contrast (he will discuss with nephrology). If collections are getting better, would recommend that we continue with IV Abx unless he clinically deteriorates because he most likely has a lot of inflammatory changes in the abdomen at this time which puts him at high risk for bowel injury and fistula formation if we take him to surgery. If he is clinically getting worse, then we will take him for a washout. Dr. Stephens was in agreement with the plan. Please call with questions. Time=15min Subjective Date of service: 12/01/17 Patient Reports: Positive: other (no new events) Objective Vital Signs - 12hr 11/30/17 11/30/17 11/30/17 22:15 22:30 22:32 Temperature Pulse Rate 82 91 H 95 H Pulse Rate [ Right From Monitor] Respiratory 27 H 29 H 30 H Rate Blood Pressure 123/69 135/75 135/75 O2 Sat by Pulse 100 100 100 Oximetry 11/30/17 11/30/17 11/30/17 22:45 22:47 22:50 Temperature Pulse Rate 82 81 94 H Pulse Rate [ Right From Monitor] Respiratory 28 H 28 H Rate Blood Pressure 121/64 121/64 O2 Sat by Pulse 94 95 100 Oximetry 11/30/17 11/30/17 11/30/17 23:00 23:01 23:15 Temperature Pulse Rate 94 H 100 H 102 H Pulse Rate [ Right From Monitor] Respiratory 30 H 29 H 31 H Rate Blood Pressure 142/85 142/85 150/86 O2 Sat by Pulse 100 100 99 Oximetry 11/30/17 11/30/17 11/30/17 23:22 23:30 23:46 Temperature 98.5 F Pulse Rate 81 113 H Pulse Rate [ Right From Monitor] Respiratory 28 H 38 H Rate Blood Pressure 127/71 127/71 O2 Sat by Pulse 100 94 Oximetry 12/01/17 12/01/17 12/01/17 00:00 00:15 00:30 Temperature Pulse Rate 108 H 110 H 108 H Pulse Rate [ Right From Monitor] Respiratory 36 H 36 H 35 H Rate Blood Pressure 145/83 156/89 155/86 O2 Sat by Pulse 92 98 99 Oximetry 12/01/17 12/01/17 12/01/17 00:46 01:00 01:15 Temperature Pulse Rate 87 108 H 113 H Pulse Rate [ Right From Monitor] Respiratory 28 H 34 H 38 H Rate Blood Pressure 112/66 155/87 160/98 O2 Sat by Pulse 98 99 97 Oximetry 12/01/17 12/01/17 12/01/17 01:30 01:45 01:50 Temperature Pulse Rate 109 H 109 H 94 H Pulse Rate [ Right From Monitor] Respiratory 36 H 37 H Rate Blood Pressure 146/84 153/92 O2 Sat by Pulse 96 99 100 Oximetry 12/01/17 12/01/17 12/01/17 02:00 02:16 02:30 Temperature Pulse Rate 100 H 112 H 88 Pulse Rate [ Right From Monitor] Respiratory 22 37 H 29 H Rate Blood Pressure 137/88 169/96 113/68 O2 Sat by Pulse 99 98 97 Oximetry 12/01/17 12/01/17 12/01/17 02:45 02:50 03:00 Temperature Pulse Rate 105 H 104 H Pulse Rate [ Right From Monitor] Respiratory 28 H 31 H Rate Blood Pressure 128/82 128/82 O2 Sat by Pulse 92 100 98 Oximetry 12/01/17 12/01/17 12/01/17 03:15 03:27 03:30 Temperature 98.4 F Pulse Rate 94 H 107 H Pulse Rate [ Right From Monitor] Respiratory 30 H 35 H Rate Blood Pressure 110/61 133/80 O2 Sat by Pulse 100 100 Oximetry 12/01/17 12/01/17 12/01/17 03:45 04:00 04:15 Temperature Pulse Rate 112 H 103 H 108 H Pulse Rate [ Right From Monitor] Respiratory 37 H 34 H 36 H Rate Blood Pressure 152/82 162/85 157/85 O2 Sat by Pulse 100 100 100 Oximetry 12/01/17 12/01/17 12/01/17 04:30 04:45 04:50 Temperature Pulse Rate 91 H 94 H 107 H Pulse Rate [ Right From Monitor] Respiratory 24 29 H Rate Blood Pressure 111/63 111/61 O2 Sat by Pulse 97 96 100 Oximetry 12/01/17 12/01/17 12/01/17 05:00 05:15 05:30 Temperature Pulse Rate 103 H 85 105 H Pulse Rate [ Right From Monitor] Respiratory 34 H 30 H 32 H Rate Blood Pressure 121/74 120/64 145/79 O2 Sat by Pulse 100 99 100 Oximetry 12/01/17 12/01/17 12/01/17 05:45 06:00 06:05 Temperature Pulse Rate 106 H 107 H Pulse Rate [ Right From Monitor] Respiratory 37 H 33 H Rate Blood Pressure 141/82 141/80 O2 Sat by Pulse 96 100 100 Oximetry 12/01/17 12/01/17 12/01/17 06:15 06:30 06:45 Temperature Pulse Rate 94 H 109 H 108 H Pulse Rate [ Right From Monitor] Respiratory 30 H 35 H 35 H Rate Blood Pressure 125/67 144/83 155/84 O2 Sat by Pulse 100 99 100 Oximetry 12/01/17 12/01/17 12/01/17 07:00 07:15 07:30 Temperature Pulse Rate 113 H 109 H 108 H Pulse Rate [ Right From Monitor] Respiratory 37 H 36 H 38 H Rate Blood Pressure 142/85 149/85 149/81 O2 Sat by Pulse 98 100 99 Oximetry 12/01/17 12/01/17 12/01/17 07:45 08:00 08:16 Temperature 98.9 F Pulse Rate 101 H 105 H 108 H Pulse Rate [ 105 H Right From Monitor] Respiratory 34 H 25 H 17 Rate Blood Pressure 139/74 145/89 155/90 O2 Sat by Pulse 97 100 100 Oximetry 12/01/17 12/01/17 08:30 09:54 Temperature Pulse Rate 100 H Pulse Rate [ Right From Monitor] Respiratory 31 H Rate Blood Pressure 151/89 O2 Sat by Pulse 100 100 Oximetry - General physical appearance no distress, no pain, other (not interactive.) - Respiratory normal expansion, normal respiratory effort - Abdomen soft, not tender, not distended, not guarding, not rigid, other (Drains #1 and 2 - serous drainage. LUQ drain with shore purulent drainage. ) - Integumentary no rash, no growths, no abnormal pigmentation - Labs 12/01/17 04:09 12/01/17 04:09 Diabetes panel 12/01/17 Range/Units 04:09 Sodium 137 (137-145) mmol/L Potassium 3.4 L (3.6-5.0) mmol/L Chloride 98.6 (98-107) mmol/L Carbon Dioxide 26 (22-30) mmol/L BUN 21 H (9-20) mg/dL Creatinine 3.0 H (0.8-1.5) mg/dL Glucose 108 H (75-100) mg/dL Calcium 8.0 L (8.4-10.2) mg/dL Calcium panel 12/01/17 Range/Units 04:09 Calcium 8.0 L (8.4-10.2) mg/dL Pituitary panel 12/01/17 Range/Units 04:09 Sodium 137 (137-145) mmol/L Potassium 3.4 L (3.6-5.0) mmol/L Chloride 98.6 (98-107) mmol/L Carbon Dioxide 26 (22-30) mmol/L BUN 21 H (9-20) mg/dL Creatinine 3.0 H (0.8-1.5) mg/dL Glucose 108 H (75-100) mg/dL Calcium 8.0 L (8.4-10.2) mg/dL Adrenal panel 12/01/17 Range/Units 04:09 Sodium 137 (137-145) mmol/L Potassium 3.4 L (3.6-5.0) mmol/L Chloride 98.6 (98-107) mmol/L Carbon Dioxide 26 (22-30) mmol/L BUN 21 H (9-20) mg/dL Creatinine 3.0 H (0.8-1.5) mg/dL Glucose 108 H (75-100) mg/dL Calcium 8.0 L (8.4-10.2) mg/dL
--- NOTE | 2017-12-01 11:33 | Progress Note ---
Assessment and Plan Assessment and plan: Acute on chronic respiratory failure with hypoxia -Status post tracheostomy, currently on T-piece -Pulmonology following Severe sepsis with shock likely secondary to aspiration pneumonia -Off IV pressors -Blood and sputum cultures negative Aspiration pneumonia with mucus plugging -off zosyn Acute kidney injury secondary to ATN -on Intermittent HD started on 11/23/17 -Creatinine level improved to 3 today -Nephrology following Current sepsis secondary to peritonitis from dislodged peg tube -Status post drainage -peritoneal Fluid positive for Enterobacter, Heather (non albicans) -Antibiotic changed to IV meropenem. Continue IV fluconazole -CT abdomen/pelvis today -ID following Anemia of acute loss secondary to gastric ulcer and gastritis -Status post EGD on 11/18/2017 -Status post blood transfusion -H/H stable, will monitor Acute encephalopathy, likely multifactorial -Will continue to monitor clinically -Prognosis is poor Hypernatremia -Resolved Hypokalemia -We will monitor level and replete as needed Hypomagnesemia -Resolved status post repletion Oropharyngeal dysphagia -Status post PEG tube placement -On tube feeding History of recent CVA -Not on aspirin due to recent bleed RT ICA stenosis -s/p recent endarterectomy Disposition: Patient overall prognosis remains poor. Continue management History Interval history: Pt is non-verbal. Nurse reported leakage around his percutaneous drain on the left side. Hospitalist Physical - Constitutional Vitals: Temp Pulse Resp BP Pulse Ox 98.9 F 100 H 31 H 151/89 100 12/01/17 08:00 12/01/17 08:30 12/01/17 08:30 12/01/17 08:30 12/01/17 09:54 General appearance: Present: no acute distress - EENT Eyes: Present: PERRL ENT: clear oral mucosa - Neck Neck: Present: supple, other (status post tracheostomy on T-piece) - Respiratory Respiratory effort: normal Respiratory: bilateral: CTA - Cardiovascular Rhythm: other (tachycardia) Heart Sounds: Present: S1 & S2 - Extremities Extremity abnormal: edema (in BLE) - Abdominal General gastrointestinal: non-distended, distended, normal bowel sounds, other ( firm on palpation) - Neurologic Neurologic: other (patient is awake but unable to follow commands) Results - Labs CBC & Chem 7: 12/01/17 04:09 12/01/17 04:09 Labs: Laboratory Last Values WBC 14.1 K/mm3 (4.5-11.0) H 12/01/17 04:09 RBC 3.32 M/mm3 (3.65-5.03) L 12/01/17 04:09 Hgb 8.6 gm/dl (11.8-15.2) L 12/01/17 04:09 Hct 27.0 % (35.5-45.6) L 12/01/17 04:09 MCV 81 fl (84-94) L 12/01/17 04:09 MCH 26 pg (28-32) L 12/01/17 04:09 MCHC 32 % (32-34) 12/01/17 04:09 RDW 18.7 % (13.2-15.2) H 12/01/17 04:09 Plt Count 147 K/mm3 (140-440) 12/01/17 04:09 Lymph % (Auto) 5.5 % (13.4-35.0) L 12/01/17 04:09 Lawrence % (Auto) 9.7 % (0.0-7.3) H 12/01/17 04:09 Eos % (Auto) 1.7 % (0.0-4.3) 12/01/17 04:09 Baso % (Auto) 0.2 % (0.0-1.8) 12/01/17 04:09 Lymph # 0.8 K/mm3 (1.2-5.4) L 12/01/17 04:09 Lawrence # 1.4 K/mm3 (0.0-0.8) H 12/01/17 04:09 Eos # 0.2 K/mm3 (0.0-0.4) 12/01/17 04:09 Baso # 0.0 K/mm3 (0.0-0.1) 12/01/17 04:09 Add Manual Diff Complete 11/24/17 05:42 Total Counted 100 11/24/17 05:42 Seg Neutrophils % 82.9 % (40.0-70.0) H 12/01/17 04:09 Seg Neuts % (Manual) 94.0 % (40.0-70.0) H 11/24/17 05:42 Band Neutrophils % 0 % 11/24/17 05:42 Lymphocytes % (Manual) 3.0 % (13.4-35.0) L 11/24/17 05:42 Reactive Lymphs % (Man) 0 % 11/24/17 05:42 Monocytes % (Manual) 3.0 % (0.0-7.3) 11/24/17 05:42 Eosinophils % (Manual) 0 % (0.0-4.3) 11/24/17 05:42 Basophils % (Manual) 0 % (0.0-1.8) 11/24/17 05:42 Metamyelocytes % 0 % 11/24/17 05:42 Myelocytes % 0 % 11/24/17 05:42 Promyelocytes % 0 % 11/24/17 05:42 Blast Cells % 0 % 11/24/17 05:42 Nucleated RBC % Not Reportable 11/24/17 05:42 Seg Neutrophils # 11.7 K/mm3 (1.8-7.7) H 12/01/17 04:09 Seg Neutrophils # Man 20.2 K/mm3 (1.8-7.7) H 11/24/17 05:42 Band Neutrophils # 0.0 K/mm3 11/24/17 05:42 Lymphocytes # (Manual) 0.6 K/mm3 (1.2-5.4) L 11/24/17 05:42 Abs React Lymphs (Man) 0.0 K/mm3 11/24/17 05:42 Monocytes # (Manual) 0.6 K/mm3 (0.0-0.8) 11/24/17 05:42 Eosinophils # (Manual) 0.0 K/mm3 (0.0-0.4) 11/24/17 05:42 Basophils # (Manual) 0.0 K/mm3 (0.0-0.1) 11/24/17 05:42 Metamyelocytes # 0.0 K/mm3 11/24/17 05:42 Myelocytes # 0.0 K/mm3 11/24/17 05:42 Promyelocytes # 0.0 K/mm3 11/24/17 05:42 Blast Cells # 0.0 K/mm3 11/24/17 05:42 WBC Morphology Not Reportable 11/24/17 05:42 Hypersegmented Neuts Not Reportable 11/24/17 05:42 Hyposegmented Neuts Not Reportable 11/24/17 05:42 Hypogranular Neuts Not Reportable 11/24/17 05:42 Smudge Cells Not Reportable 11/24/17 05:42 Toxic Granulation Not Reportable 11/24/17 05:42 Toxic Vacuolation Not Reportable 11/24/17 05:42 Dohle Bodies Not Reportable 11/24/17 05:42 Pelger-Huet Anomaly Not Reportable 11/24/17 05:42 Evangelina Rods Not Reportable 11/24/17 05:42 Platelet Estimate Appears normal 11/24/17 05:42 Clumped Platelets Not Reportable 11/24/17 05:42 Plt Clumps, EDTA Not Reportable 11/24/17 05:42 Large Platelets Not Reportable 11/24/17 05:42 Giant Platelets Not Reportable 11/24/17 05:42 Platelet Satelliting Not Reportable 11/24/17 05:42 Plt Morphology Comment Not Reportable 11/24/17 05:42 RBC Morphology Not Reportable 11/24/17 05:42 Dimorphic RBCs Not Reportable 11/24/17 05:42 Polychromasia Not Reportable 11/24/17 05:42 Hypochromasia Not Reportable 11/24/17 05:42 Poikilocytosis Not Reportable 11/24/17 05:42 Anisocytosis Few 11/24/17 05:42 Microcytosis Not Reportable 11/24/17 05:42 Macrocytosis Not Reportable 11/24/17 05:42 Spherocytes Not Reportable 11/24/17 05:42 Pappenheimer Bodies Not Reportable 11/24/17 05:42 Sickle Cells Not Reportable 11/24/17 05:42 Target Cells Few 11/24/17 05:42 Tear Drop Cells Not Reportable 11/24/17 05:42 Ovalocytes Not Reportable 11/24/17 05:42 Stomatocytes Few 11/18/17 04:34 Helmet Cells Not Reportable 11/24/17 05:42 Dukes-Panora Bodies Not Reportable 11/24/17 05:42 [place] Rings Not Reportable 11/24/17 05:42 Lucretia Cells Not Reportable 11/24/17 05:42 Bite Cells Not Reportable 11/24/17 05:42 Crenated Cell Not Reportable 11/24/17 05:42 Elliptocytes Not Reportable 11/24/17 05:42 Acanthocytes (Spur) Not Reportable 11/24/17 05:42 Rouleaux Not Reportable 11/24/17 05:42 Hemoglobin C Crystals Not Reportable 11/24/17 05:42 Schistocytes Not Reportable 11/24/17 05:42 Malaria parasites Not Reportable 11/24/17 05:42 Santo Bodies Not Reportable 11/24/17 05:42 Hem Pathologist Commnt No 11/24/17 05:42 PT 23.6 Sec. (12.2-14.9) H 11/26/17 06:29 INR 1.96 (0.87-1.13) H 11/26/17 06:29 APTT 33.8 Sec. (24.2-36.6) 11/26/17 06:29 POC ABG pH 7.505 (7.35-7.45) H 11/23/17 04:56 POC ABG pCO2 26.3 (35-45) L 11/23/17 04:56 POC ABG pO2 100 (80-105) 11/23/17 04:56 POC ABG HCO3 20.8 11/23/17 04:56 POC ABG Total CO2 22 11/23/17 04:56 POC ABG O2 Sat 98 11/23/17 04:56 POC ABG Base Excess -2 11/23/17 04:56 FiO2 30 % 11/23/17 04:56 Sodium 137 mmol/L (137-145) 12/01/17 04:09 Potassium 3.4 mmol/L (3.6-5.0) L 12/01/17 04:09 Chloride 98.6 mmol/L (98-107) 12/01/17 04:09 Carbon Dioxide 26 mmol/L (22-30) 12/01/17 04:09 Anion Gap 16 mmol/L 12/01/17 04:09 BUN 21 mg/dL (9-20) H 12/01/17 04:09 Creatinine 3.0 mg/dL (0.8-1.5) H 12/01/17 04:09 Estimated GFR 25 ml/min 12/01/17 04:09 BUN/Creatinine Ratio 7 % 12/01/17 04:09 Glucose 108 mg/dL (75-100) H 12/01/17 04:09 POC Glucose 105 (70-105) 12/01/17 05:18 Lactic Acid 1.80 mmol/L (0.7-2.0) 11/27/17 04:06 Calcium 8.0 mg/dL (8.4-10.2) L 12/01/17 04:09 Magnesium 2.00 mg/dL (1.7-2.3) 11/24/17 21:53 Total Bilirubin 0.90 mg/dL (0.1-1.2) 11/24/17 21:53 AST 170 units/L (5-40) H 11/24/17 21:53 ALT 179 units/L (7-56) H 11/24/17 21:53 Alkaline Phosphatase 175 units/L (35-129) H 11/24/17 21:53 Total Creatine Kinase 84 units/L (55-170) 11/12/17 20:03 CK-MB (CK-2) < 1.0 ng/mL (0.0-4.0) 11/12/17 20:03 CK-MB (CK-2) Rel Index 1.1 (0-4) 11/12/17 20:03 Troponin T 0.098 ng/mL (0.00-0.029) H 11/12/17 Unknown C-Reactive Protein 25.70 mg/dL (0.00-1.30) H 11/11/17 23:20 NT-Pro-B Natriuret Pep 792.4 pg/mL (0-900) 11/11/17 23:20 Total Protein 5.5 g/dL (6.3-8.2) L 11/24/17 21:53 Albumin 1.8 g/dL (3.9-5) L 11/24/17 21:53 Albumin/Globulin Ratio 0.5 % 11/24/17 21:53 Triglycerides 86 mg/dL (2-149) 11/11/17 23:20 Cholesterol 82 mg/dL (50-199) 11/11/17 23:20 LDL Cholesterol Direct 42 mg/dL (50-130) L 11/11/17 23:20 HDL Cholesterol 24 mg/dL (40-59) L 11/11/17 23:20 Cholesterol/HDL Ratio 3.41 % 11/11/17 23:20 Lipase 30 units/L (13-60) 11/11/17 23:20 Urine Color Nicole (Yellow) 11/11/17 23:09 Urine Turbidity Cloudy (Clear) 11/11/17 23:09 Urine pH 5.0 (5.0-7.0) 11/11/17 23:09 Ur Specific Knott 1.025 (1.003-1.030) 11/11/17 23:09 Urine Protein 100 mg/dl mg/dL (Negative) 11/11/17 23:09 Urine Glucose (UA) 50 mg/dL (Negative) 11/11/17 23:09 Urine Ketones Neg mg/dL (Negative) 11/11/17 23:09 Urine Blood Neg (Negative) 11/11/17 23:09 Urine Nitrite Neg (Negative) 11/11/17 23:09 Urine Bilirubin Neg (Negative) 11/11/17 23:09 Urine Urobilinogen 4.0 mg/dL (<2.0) 11/11/17 23:09 Ur Leukocyte Esterase Neg (Negative) 11/11/17 23:09 Urine WBC (Auto) 5.0 /HPF (0.0-6.0) 11/11/17 23:09 Urine RBC (Auto) 4.0 /HPF (0.0-6.0) 11/11/17 23:09 Urine Bacteria (Auto) 3+ /HPF (Negative) 11/11/17 23:09 Amorphous Crystals 3+ 11/11/17 23:09 Hyaline Casts 76 /LPF 11/11/17 23:09 Urine Mucus 2+ /HPF 11/11/17 23:09 Hepatitis A IgM Ab Non-reactive (NonReactive) 11/22/17 19:45 Hep Bs Antigen Non-reactive (Negative) 11/22/17 19:45 Hep B Core IgM Ab Non-reactive (NonReactive) 11/22/17 19:45 Hepatitis C Antibody Reactive (NonReactive) A 11/22/17 19:45 Blood Type A POSITIVE 11/24/17 08:27 Antibody Screen Negative 11/24/17 08:27 Crossmatch See Detail 11/24/17 08:27
[2017-12-01] MEDS: LOPRESSOR PO SCH ×2 (13:11→22:02)
--- NOTE | 2017-12-01 17:24 | Cat Scan Report ---
FINAL REPORT EXAM: CT ABDOMEN PELVIS W CON HISTORY: Concern for worsening Periotonitis TECHNIQUE: Spiral CT scanning of the abdomen and pelvis after the uneventful administration of IV contrast. Multiplanar reformations. 100 mL Omnipaque IV. PRIORS: Noncontrast CT abdomen and pelvis, 24 November 2017. FINDINGS: Abdomen: Visualized lung bases partially confluent opacities, with air bronchograms, and small bilateral pleural effusions bilaterally, mildly increased. Percutaneous gastrostomy tube and contrast collection noted previously no longer visualized. Thin caliber enteric tube now coiled in the stomach, which is mostly decompressed. Distal stomach and duodenum decompressed, with wall and fold thickening, but no significant perienteric fat stranding. Percutaneous drainage catheters extending from left upper quadrant to anterior epigastric region and right upper quadrant extending anterior to the right lobe of liver. Additional percutaneous drainage catheter right lower quadrant noted anteriorly. Small-moderate amount of fluid scattered in the abdomen decreased from comparison. Largest focal or loculated collection again noted posteroinferior to the stomach, measuring approximately 14 x 7 cm in cross-sectional diameter slightly bigger, with thin and slightly enhancing margins. No radiopaque gallstones. Liver without significant abnormality. Spleen again show perisplenic fluid laterally about the same. No other significant abnormality. Pancreas without significant abnormality. Bilateral renal cysts, largest measuring approximately 2.1 cm in the left kidney. No significant hydronephrosis. Nodular density in the right adrenal gland measures approximately 1 cm. Left adrenal gland grossly unremarkable. Pelvis: Nonspecific bowel gas pattern, with variable bowel wall and fold thickening scattered in the proximal-mid small bowel and more diffuse mesenteric fat stranding. No apparent pneumatosis or evidence of mechanical bowel obstruction. Rectal tube now noted. Appendix is not confidently identified. Loculated fluid collections noted along the bilateral paracolic gutters measuring approximately 4 x 8 cm in cross-sectional diameter and 13 cm in length on the right and 3.5 x 7 cm in cross-sectional diameter and 21 cm in length on the left, neither of which are in significant contiguity with catheters. Smaller, similar appearing fluid loculations in the mid and lower central mesentery both anterior and centrally, largest in the left paramedian supraumbilical region anteriorly measuring approximately 10 x 3 cm in cross-sectional diameter. Largest collection in the pelvis measures 11 x 13 cm in cross-sectional diameter and 2.5 cm in craniocaudal dimension. All the show thin and partially enhancing margins. Abdominal aorta non-aneurysmal. Axial skeleton grossly unremarkable. Central venous catheter again noted in left inguinal region. IMPRESSION: 1. Interval decrease in overall amount of nonspecific fluid noted previously in the abdomen and pelvis, with mild residual. 2. Multiple percutaneous catheters and multi-focal, loculated fluid collections scattered in central mesentery and bilateral paracolic gutters, as well as the pelvis, some decreased in size, while others may be mildly larger, but overall similar to comparison. 3. Findings which may be due to incomplete or nondistention versus nonspecific postinflammatory change in the stomach and duodenum. Correlate clinically. 4. Findings compatible with nonspecific postinflammatory change or enteritis, which may be secondary to infectious, inflammatory or ischemic etiology. 5. Findings which may represent bilateral lower lobe atelectasis versus consolidations and very small bilateral pleural effusions, mildly increased in the interval. Correlate clinically.
[2017-12-01] MEDS: SODIUM CHLORIDE FLUSH SYRINGE 10 ML IV SCH (22:01)
[2017-12-02] MEDS: SODIUM CHLORIDE FLUSH SYRINGE 10 ML IV SCH (09:35)
[2017-12-02] MEDS: PROTONIX (nf) FEEDTUBE SCH (09:35)
[2017-12-02] MEDS: DIFLUCAN 200 MG/100 ML BAG IV SCH (09:35)
[2017-12-02] MEDS: LOPRESSOR PO SCH (09:35)
--- NOTE | 2017-12-02 10:52 | Progress Note ---
Assessment and Plan Assessment: 1) Sepsis with transient septic shock: still feer, leukocytosis up. Etiology most likely PEG-associated intraabdominal collection. CRP=25 2) VAP vs post-obstructive pneumonia (mucous mugging) -initial sputum 10/10 Klebsiella -sputum 11/12 usual respiratory estela -CXR showed increased perihilar alveolar density >RLL than LLL. -CTA showed complete atelectasis of the LLL with mediatinal shift to the left due to blockage of the left main bronchus by ETT. -repeat CT showed Loculated fluid collections noted along the bilateral paracolic gutters measuring approximately 4 x 8 cm in cross-sectional diameter and 13 cm in length on the right and 3.5 x 7 cm in cross-sectional diameter and 21 cm in length on the left, neither of which are in significant contiguity with catheters. Smaller, similar appearing fluid loculations in the mid and lower central mesentery both anterior and centrally, largest in the left paramedian supraumbilical region anteriorly measuring approximately 10 x 3 cm in cross-sectional diameter. Largest collection in the pelvis measures 11 x 13 cm in cross-sectional diameter and 2.5 cm in craniocaudal dimension. 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, placement of recent PEG tube with prolonged recent admission from 10/04-/11/10/17 4) Acute encephalopathy 5) Acute Respiratory failure 6) DARYA 7) Hypernatremia 8) PEG-associated intraabdominal collection s/p IR drainage 11/26 MDR Enterobacter and Heather non albicnas Plan: -plan to prob go to OR tomorrow, surgery on board -stop meropenem -start cefepime -continue fluconazole -duration cefepime and fluconazole probably 10-30 days depending on collection resolution I am rounding on 12/04 Thank you for your consultation, will follow up with you. Olga Mercedes MD Infectious Diseases Specialist [facility] ([facility] M [phone] O [phone] Subjective Date of service: 12/02/17 Principal diagnosis: Acute hypoxic respiratory failure due to Pneumonia on MV> 96 hours s/p Trach Interval history: Patient remains on the vent currently on T piece. No fever for 3 days Microbiology: Blood cultures: 10/24 [employer] 10/29 neg 11/10 neg 11/12 ngtd Urine cultures: Respiratory cultures: 10/10 Klebsiella 11/12 usual resp estela IR drainage 11/26 MDR Enterobacter and Heather not albicans Current Antimicrobials: meropenem fluconaozle Previous Antimicrobials: LevaquinZosyn 11/13 Objective - Exam Narrative Exam: General appearance: alert on t-piece Eyes: anicteric sclerae, moist conjunctivae; no lid-lag; PERRLA HENT: Atraumatic; oropharynx+ETT +OGT Neck: Trachea midline; supple, no thyromegaly or lymphadenopathy Lungs: scattered rhonchi CV: rrr Abdomen: Soft, distended +PEG +3 drains with minimal purulence Extremities: winnie arms/legs edema Skin: Normal temperature, turgor and texture; no rash, ulcers or subcutaneous nodules Psych: sedated Neuro: sedated Lines: condom cath - Constitutional Vitals: Vital Signs Temp Pulse Resp BP Pulse Ox 98.4 F 89 27 H 141/82 100 12/02/17 08:00 12/02/17 09:35 12/02/17 06:00 12/02/17 09:35 12/02/17 06:00 Temperature -Last 24 Hours Temperature 98.4 F Temperature 98.4 F Temperature 98.9 F Temperature 97.8 F Temperature 98.9 F Temperature 99.2 F - Labs CBC & Chem 7: 12/01/17 04:09 12/01/17 04:09 Labs: Abnormal lab results 12/01/17 Range/Units 12:17 POC Glucose 126 H (70-105)
--- NOTE | 2017-12-02 11:25 | Progress Note ---
Assessment and Plan Acute on chronic respiratory failure with hypoxia - likely due to aspiratin and PNA -Status post tracheostomy, currently on T-piece -Pulmonology following Severe sepsis with shock likely secondary to aspiration pneumonia -Off IV pressors -Blood and sputum cultures negative Aspiration pneumonia with mucus plugging -treated with zosyn Acute kidney injury secondary to ATN -on Intermittent HD started on 11/23/17 -Creatinine level improved -Nephrology following Peritonitis from dislodged peg tube -Status post drainage placement by IR and replaced PEG tube on 11/22 -peritoneal Fluid positive for Enterobacter, Heather (non albicans) -Antibiotic managed by ID -s/p CT abdomen/pelvis, surgery consulted -Plan for OR tomorrow Anemia of acute loss secondary to gastric ulcer and gastritis -Status post EGD on 11/18/2017 -Status post blood transfusion -H/H stable, will monitor Acute encephalopathy, likely multifactorial -Will continue to monitor clinically -Prognosis is poor Hypernatremia -Resolved Hypokalemia -We will monitor level and replete as needed Hypomagnesemia -Resolved status post repletion Oropharyngeal dysphagia -Status post PEG tube replacement on 11/22 -On tube feeding History of recent CVA -Not on aspirin due to recent bleed RT ICA stenosis -s/p recent endarterectomy Disposition: Patient overall prognosis remains poor. Continue management Brief History 67yo M with history CVA, a PEG tube placed by GI on 11/06 presented (11/12) from rehab for respiratory failure, sepsis, hypotension and multilober PNA. Recent work-up for hypotension showed a dislodged PEG tube on CT scan with extraluminal PO contrast that was limited to the upper abdomen and left gutter. Pt had an EGD on 11/18 that did not show the PEG button or an obvious hole in the stomach. There was no free air noted on CXR's. Pt had IR guided drainage placed in the 3 different locations of abdomen. He is now s/p trach by ENT. Now being evaluated by surgery as Nurse reported leakage around his percutaneous drain on the left side. Hospitalist Physical General appearance: Present: no acute distress - EENT Eyes: Present: PERRL ENT: clear oral mucosa - Neck Neck: Present: supple, other (status post tracheostomy on T-piece) - Respiratory Respiratory effort: normal Respiratory: bilateral: CTA - Cardiovascular Rhythm: other (tachycardia) Heart Sounds: Present: S1 & S2 - Extremities Extremity abnormal: edema (in BLE) - Abdominal General gastrointestinal: non-distended, distended, normal bowel sounds, other ( firm on palpation) - Neurologic Neurologic: other (patient is awake but unable to follow commands) Subjective Date of service: 12/02/17 Principal diagnosis: Acute hypoxic respiratory failure due to Pneumonia on MV> 96 hours s/p Trach Interval history: Pt seen and examined, nonverbal No acute event reported by RN Objective - Constitutional Vitals: Vital Signs - 12hr 12/02/17 12/02/17 12/02/17 00:00 01:00 02:00 Temperature 98.9 F Pulse Rate 98 H 102 H 84 Pulse Rate [ 86 Right From Monitor] Respiratory 30 H 11 L 28 H Rate Blood Pressure 124/74 146/83 112/66 O2 Sat by Pulse 96 94 100 Oximetry O2 Sat by Pulse 100 Oximetry [ Assessment] 12/02/17 12/02/17 12/02/17 03:00 04:00 05:00 Temperature 98.4 F Pulse Rate 86 92 H 96 H Pulse Rate [ 95 H Right From Monitor] Respiratory 27 H 29 H 30 H Rate Blood Pressure 122/68 127/71 128/72 O2 Sat by Pulse 100 99 98 Oximetry O2 Sat by Pulse Oximetry [ Assessment] 12/02/17 12/02/17 12/02/17 06:00 08:00 09:35 Temperature 98.4 F Pulse Rate 83 89 Pulse Rate [ Right From Monitor] Respiratory 27 H Rate Blood Pressure 130/70 141/82 O2 Sat by Pulse 100 Oximetry O2 Sat by Pulse Oximetry [ Assessment] - Labs CBC & Chem 7: 12/03/17 02:52 12/03/17 Unknown Labs: Abnormal lab results 12/01/17 Range/Units 12:17 POC Glucose 126 H (70-105)
--- NOTE | 2017-12-02 11:58 | Progress Note ---
Assessment and Plan 67 y/o male with acute on chronic respiratory failure, now trached, with peritonitis from dislodged peg tube s/p 2 IR drains now with NGT feedings. 1. continue abx therapy 2. To OR tomorrow for possible fluid drainage 3. OT for hand therapy. 4. Continue trach care Will continue to monitor in ICU until after surgical evaluation in OR Subjective Date of service: 12/02/17 Principal diagnosis: Acute hypoxic respiratory failure due to Pneumonia on MV> 96 hours s/p Trach Interval history: No acute events. Had CT of Abd/Pelvis yesterday. Does have large fluid collection in the abdomen but a large amount of the old fluid is gone. Objective Vital Signs - 12hr 12/02/17 12/02/17 12/02/17 00:00 01:00 02:00 Temperature 98.9 F Pulse Rate 98 H 102 H 84 Pulse Rate [ 86 Right From Monitor] Respiratory 30 H 11 L 28 H Rate Blood Pressure 124/74 146/83 112/66 O2 Sat by Pulse 96 94 100 Oximetry O2 Sat by Pulse 100 Oximetry [ Assessment] 12/02/17 12/02/17 12/02/17 03:00 04:00 05:00 Temperature 98.4 F Pulse Rate 86 92 H 96 H Pulse Rate [ 95 H Right From Monitor] Respiratory 27 H 29 H 30 H Rate Blood Pressure 122/68 127/71 128/72 O2 Sat by Pulse 100 99 98 Oximetry O2 Sat by Pulse Oximetry [ Assessment] 12/02/17 12/02/17 12/02/17 06:00 08:00 09:35 Temperature 98.4 F Pulse Rate 83 89 Pulse Rate [ Right From Monitor] Respiratory 27 H Rate Blood Pressure 130/70 141/82 O2 Sat by Pulse 100 Oximetry O2 Sat by Pulse Oximetry [ Assessment] Constitutional: other (s/p trach, awake) Eyes: non-icteric ENT: oropharynx moist Neck: supple Effort: normal Ascultation: Bilateral: clear, rhonchi (sporadic), other (coarse BS bilaterally) Cardiovascular: regular rate and rhythm (no mrg) Gastrointestinal: normoactive bowel sounds, soft, non-tender, other (distended but better after drainage) Integumentary: normal Extremities: no cyanosis, pink and warm, anasarca Neurologic: other (L hemiparesis) Psychiatric: other (unable to assess) CBC and BMP: 12/01/17 04:09 12/01/17 04:09 ABG, PT/INR, D-dimer: ABG POC ABG pH 7.505 (7.35-7.45) H 11/23/17 04:56 POC ABG pCO2 26.3 (35-45) L 11/23/17 04:56 POC ABG pO2 100 (80-105) 11/23/17 04:56 POC ABG HCO3 20.8 11/23/17 04:56 POC ABG Total CO2 22 11/23/17 04:56 POC ABG O2 Sat 98 11/23/17 04:56 PT/INR, D-dimer PT 23.6 Sec. (12.2-14.9) H 11/26/17 06:29 INR 1.96 (0.87-1.13) H 11/26/17 06:29 Abnormal lab findings: Abnormal Labs 11/11/17 11/11/17 11/11/17 23:18 23:20 23:20 WBC RBC Hgb 10.4 L Hct 32.6 L D MCV MCH 27 L MCHC RDW 17.4 H Plt Count 105 L Lymph % (Auto) [place] % (Auto) Lymph # [place] # Seg Neutrophils % Seg Neuts % (Manual) Lymphocytes % (Manual) 8.0 L Monocytes % (Manual) Nucleated RBC % 1.0 H Seg Neutrophils # Seg Neutrophils # Man Lymphocytes # (Manual) 0.7 L Monocytes # (Manual) PT INR POC ABG pH 7.550 H POC ABG pCO2 31.6 L POC ABG pO2 Sodium 146 H Potassium Chloride Carbon Dioxide BUN 26 H Creatinine 1.7 H D Glucose 133 H POC Glucose Lactic Acid Calcium Magnesium AST ALT Alkaline Phosphatase Troponin T 0.117 H* C-Reactive Protein Total Protein Albumin 2.5 L LDL Cholesterol Direct 42 L HDL Cholesterol 24 L Hepatitis C Antibody Crossmatch 11/11/17 11/12/17 11/12/17 23:20 00:23 00:23 WBC RBC Hgb Hct MCV MCH MCHC RDW Plt Count Lymph % (Auto) [place] % (Auto) Lymph # [place] # Seg Neutrophils % Seg Neuts % (Manual) Lymphocytes % (Manual) Monocytes % (Manual) Nucleated RBC % Seg Neutrophils # Seg Neutrophils # Man Lymphocytes # (Manual) Monocytes # (Manual) PT 16.7 H INR 1.28 H POC ABG pH POC ABG pCO2 POC ABG pO2 Sodium Potassium Chloride Carbon Dioxide BUN Creatinine Glucose POC Glucose Lactic Acid 3.20 H* Calcium Magnesium AST ALT Alkaline Phosphatase Troponin T C-Reactive Protein 25.70 H Total Protein Albumin LDL Cholesterol Direct HDL Cholesterol Hepatitis C Antibody Crossmatch 11/12/17 11/12/17 11/12/17 00:46 01:27 01:27 WBC RBC Hgb Hct MCV MCH MCHC RDW Plt Count Lymph % (Auto) [place] % (Auto) Lymph # [place] # Seg Neutrophils % Seg Neuts % (Manual) Lymphocytes % (Manual) Monocytes % (Manual) Nucleated RBC % Seg Neutrophils # Seg Neutrophils # Man Lymphocytes # (Manual) Monocytes # (Manual) PT INR POC ABG pH 7.495 H POC ABG pCO2 32.0 L POC ABG pO2 64 L Sodium Potassium Chloride Carbon Dioxide BUN Creatinine Glucose POC Glucose Lactic Acid 3.70 H* Calcium Magnesium AST ALT Alkaline Phosphatase Troponin T 0.096 H C-Reactive Protein Total Protein Albumin LDL Cholesterol Direct HDL Cholesterol Hepatitis C Antibody Crossmatch 11/12/17 11/12/17 11/12/17 03:21 04:50 06:27 WBC RBC Hgb Hct MCV MCH MCHC RDW Plt Count Lymph % (Auto) [place] % (Auto) Lymph # [place] # Seg Neutrophils % Seg Neuts % (Manual) Lymphocytes % (Manual) Monocytes % (Manual) Nucleated RBC % Seg Neutrophils # Seg Neutrophils # Man Lymphocytes # (Manual) Monocytes # (Manual) PT INR POC ABG pH POC ABG pCO2 POC ABG pO2 109 H Sodium Potassium Chloride Carbon Dioxide BUN Creatinine Glucose POC Glucose Lactic Acid 3.80 H* 2.20 H* Calcium Magnesium AST ALT Alkaline Phosphatase Troponin T C-Reactive Protein Total Protein Albumin LDL Cholesterol Direct HDL Cholesterol Hepatitis C Antibody Crossmatch 11/12/17 11/12/17 11/12/17 09:24 09:24 09:24 WBC RBC Hgb 10.4 L Hct 33.4 L MCV MCH MCHC RDW Plt Count Lymph % (Auto) [place] % (Auto) Lymph # [place] # Seg Neutrophils % Seg Neuts % (Manual) Lymphocytes % (Manual) Monocytes % (Manual) Nucleated RBC % Seg Neutrophils # Seg Neutrophils # Man Lymphocytes # (Manual) Monocytes # (Manual) PT INR POC ABG pH POC ABG pCO2 POC ABG pO2 Sodium Potassium Chloride Carbon Dioxide BUN Creatinine Glucose POC Glucose Lactic Acid 2.90 H* Calcium Magnesium AST ALT Alkaline Phosphatase Troponin T 0.091 H C-Reactive Protein Total Protein Albumin LDL Cholesterol Direct HDL Cholesterol Hepatitis C Antibody Crossmatch 11/12/17 11/12/17 11/12/17 12:56 20:03 Unknown WBC RBC Hgb Hct MCV MCH MCHC RDW Plt Count Lymph % (Auto) [place] % (Auto) Lymph # [place] # Seg Neutrophils % Seg Neuts % (Manual) Lymphocytes % (Manual) Monocytes % (Manual) Nucleated RBC % Seg Neutrophils # Seg Neutrophils # Man Lymphocytes # (Manual) Monocytes # (Manual) PT INR POC ABG pH POC ABG pCO2 POC ABG pO2 Sodium Potassium Chloride Carbon Dioxide BUN Creatinine Glucose POC Glucose Lactic Acid 3.60 H* Calcium Magnesium AST ALT Alkaline Phosphatase Troponin T 0.102 H* 0.156 H* D C-Reactive Protein Total Protein Albumin LDL Cholesterol Direct HDL Cholesterol Hepatitis C Antibody Crossmatch 11/12/17 11/13/17 11/13/17 Unknown 04:50 04:50 WBC 12.2 H RBC 3.51 L Hgb 9.3 L Hct 30.1 L MCV MCH 26 L MCHC 31 L RDW 18.0 H Plt Count 128 L Lymph % (Auto) 8.6 L [place] % (Auto) 11.1 H Lymph # 1.1 L [place] # 1.4 H Seg Neutrophils % 80.1 H Seg Neuts % (Manual) Lymphocytes % (Manual) Monocytes % (Manual) Nucleated RBC % Seg Neutrophils # 9.8 H Seg Neutrophils # Man Lymphocytes # (Manual) Monocytes # (Manual) PT INR POC ABG pH POC ABG pCO2 POC ABG pO2 Sodium 149 H Potassium 5.1 H Chloride 114.4 H Carbon Dioxide 18 L BUN 52 H Creatinine 3.3 H D Glucose 129 H POC Glucose Lactic Acid Calcium 7.9 L Magnesium AST ALT Alkaline Phosphatase Troponin T 0.098 H C-Reactive Protein Total Protein Albumin LDL Cholesterol Direct HDL Cholesterol Hepatitis C Antibody Crossmatch 11/13/17 11/13/17 11/14/17 04:51 09:34 04:21 WBC RBC Hgb Hct MCV MCH MCHC RDW Plt Count Lymph % (Auto) [place] % (Auto) Lymph # [place] # Seg Neutrophils % Seg Neuts % (Manual) Lymphocytes % (Manual) Monocytes % (Manual) Nucleated RBC % Seg Neutrophils # Seg Neutrophils # Man Lymphocytes # (Manual) Monocytes # (Manual) PT INR POC ABG pH POC ABG pCO2 30.1 L 29.8 L POC ABG pO2 135 H Sodium Potassium Chloride Carbon Dioxide BUN Creatinine Glucose POC Glucose Lactic Acid 2.10 H* Calcium Magnesium AST ALT Alkaline Phosphatase Troponin T C-Reactive Protein Total Protein Albumin LDL Cholesterol Direct HDL Cholesterol Hepatitis C Antibody Crossmatch 11/15/17 11/15/17 11/16/17 04:52 15:50 05:17 WBC RBC Hgb Hct MCV MCH MCHC RDW Plt Count Lymph % (Auto) [place] % (Auto) Lymph # [place] # Seg Neutrophils % Seg Neuts % (Manual) Lymphocytes % (Manual) Monocytes % (Manual) Nucleated RBC % Seg Neutrophils # Seg Neutrophils # Man Lymphocytes # (Manual) Monocytes # (Manual) PT INR POC ABG pH POC ABG pCO2 29.5 L 31.5 L POC ABG pO2 115 H 122 H Sodium 154 H Potassium Chloride 117.9 H Carbon Dioxide 19 L BUN 87 H Creatinine 4.1 H Glucose POC Glucose Lactic Acid Calcium 8.1 L Magnesium AST ALT Alkaline Phosphatase Troponin T C-Reactive Protein Total Protein Albumin LDL Cholesterol Direct HDL Cholesterol Hepatitis C Antibody Crossmatch 11/16/17 11/17/17 11/17/17 16:37 04:07 10:00 WBC 14.7 H RBC 3.23 L Hgb 8.3 L Hct 28.1 L MCV MCH 26 L MCHC 30 L RDW 18.8 H Plt Count Lymph % (Auto) [place] % (Auto) Lymph # [place] # Seg Neutrophils % Seg Neuts % (Manual) 75 H Lymphocytes % (Manual) 8.0 L Monocytes % (Manual) Nucleated RBC % 1.0 H Seg Neutrophils # Seg Neutrophils # Man 11.0 H Lymphocytes # (Manual) Monocytes # (Manual) 0.9 H PT INR POC ABG pH POC ABG pCO2 POC ABG pO2 Sodium 153 H 155 H Potassium Chloride 117.3 H 119.4 H Carbon Dioxide 19 L 20 L BUN 90 H 89 H Creatinine 3.9 H 3.6 H Glucose 111 H 115 H POC Glucose Lactic Acid Calcium 8.1 L 8.0 L Magnesium AST ALT Alkaline Phosphatase Troponin T C-Reactive Protein Total Protein Albumin LDL Cholesterol Direct HDL Cholesterol Hepatitis C Antibody Crossmatch 11/18/17 11/18/17 11/18/17 04:34 04:34 04:34 WBC 15.5 H RBC 3.13 L Hgb 8.1 L Hct 26.3 L MCV MCH 26 L MCHC 31 L RDW 18.6 H Plt Count Lymph % (Auto) [place] % (Auto) Lymph # [place] # Seg Neutrophils % Seg Neuts % (Manual) 81.0 H Lymphocytes % (Manual) 7.0 L Monocytes % (Manual) Nucleated RBC % 1.0 H Seg Neutrophils # Seg Neutrophils # Man 12.6 H Lymphocytes # (Manual) 1.1 L Monocytes # (Manual) PT 16.7 H INR 1.30 H POC ABG pH POC ABG pCO2 POC ABG pO2 Sodium 155 H Potassium 3.2 L Chloride 121.0 H Carbon Dioxide 20 L BUN 74 H Creatinine 2.9 H Glucose 126 H POC Glucose Lactic Acid Calcium 7.9 L Magnesium AST ALT Alkaline Phosphatase Troponin T C-Reactive Protein Total Protein Albumin LDL Cholesterol Direct HDL Cholesterol Hepatitis C Antibody Crossmatch 11/19/17 11/19/17 11/20/17 04:44 04:44 00:38 WBC 19.0 H 22.2 H RBC 3.20 L 3.17 L Hgb 8.4 L 7.9 L Hct 27.9 L 26.4 L MCV 83 L MCH 26 L 25 L MCHC 30 L 30 L RDW 19.1 H 18.9 H Plt Count Lymph % (Auto) [place] % (Auto) Lymph # [place] # Seg Neutrophils % Seg Neuts % (Manual) 83.0 H Lymphocytes % (Manual) 3.0 L Monocytes % (Manual) 9.0 H Nucleated RBC % Seg Neutrophils # Seg Neutrophils # Man 18.4 H Lymphocytes # (Manual) 0.7 L Monocytes # (Manual) 2.0 H PT INR POC ABG pH POC ABG pCO2 POC ABG pO2 Sodium 152 H Potassium Chloride 117.1 H Carbon Dioxide 17 L BUN 66 H Creatinine 2.8 H Glucose 119 H POC Glucose Lactic Acid Calcium 7.8 L Magnesium 2.70 H AST ALT Alkaline Phosphatase Troponin T C-Reactive Protein Total Protein Albumin LDL Cholesterol Direct HDL Cholesterol Hepatitis C Antibody Crossmatch 11/20/17 11/20/17 11/20/17 03:29 04:48 13:38 WBC RBC Hgb Hct MCV MCH MCHC RDW Plt Count Lymph % (Auto) [place] % (Auto) Lymph # [place] # Seg Neutrophils % Seg Neuts % (Manual) Lymphocytes % (Manual) Monocytes % (Manual) Nucleated RBC % Seg Neutrophils # Seg Neutrophils # Man Lymphocytes # (Manual) Monocytes # (Manual) PT INR POC ABG pH POC ABG pCO2 29.4 L POC ABG pO2 Sodium 148 H Potassium 3.4 L Chloride 113.7 H Carbon Dioxide 18 L BUN 59 H Creatinine 2.7 H Glucose 113 H POC Glucose 128 H Lactic Acid Calcium 7.8 L Magnesium AST ALT Alkaline Phosphatase Troponin T C-Reactive Protein Total Protein Albumin LDL Cholesterol Direct HDL Cholesterol Hepatitis C Antibody Crossmatch 11/20/17 11/20/17 11/21/17 17:38 23:40 00:13 WBC RBC Hgb 8.4 L Hct 28.0 L MCV MCH MCHC RDW Plt Count Lymph % (Auto) [place] % (Auto) Lymph # [place] # Seg Neutrophils % Seg Neuts % (Manual) Lymphocytes % (Manual) Monocytes % (Manual) Nucleated RBC % Seg Neutrophils # Seg Neutrophils # Man Lymphocytes # (Manual) Monocytes # (Manual) PT INR POC ABG pH POC ABG pCO2 POC ABG pO2 Sodium Potassium Chloride Carbon Dioxide BUN Creatinine Glucose POC Glucose 115 H 145 H Lactic Acid Calcium Magnesium AST ALT Alkaline Phosphatase Troponin T C-Reactive Protein Total Protein Albumin LDL Cholesterol Direct HDL Cholesterol Hepatitis C Antibody Crossmatch 11/21/17 11/21/17 11/21/17 04:30 04:30 04:58 WBC 21.0 H RBC Hgb 9.6 L Hct 32.7 L MCV MCH 25 L MCHC 29 L RDW 19.7 H Plt Count 746 H Lymph % (Auto) [place] % (Auto) Lymph # [place] # Seg Neutrophils % Seg Neuts % (Manual) Lymphocytes % (Manual) Monocytes % (Manual) Nucleated RBC % Seg Neutrophils # Seg Neutrophils # Man Lymphocytes # (Manual) Monocytes # (Manual) PT INR POC ABG pH POC ABG pCO2 POC ABG pO2 Sodium Potassium Chloride 109.4 H Carbon Dioxide 14 L BUN 59 H Creatinine 3.0 H Glucose 137 H POC Glucose 132 H Lactic Acid Calcium 7.6 L Magnesium AST ALT Alkaline Phosphatase Troponin T C-Reactive Protein Total Protein Albumin LDL Cholesterol Direct HDL Cholesterol Hepatitis C Antibody Crossmatch 11/21/17 11/21/17 11/21/17 06:30 13:43 14:17 WBC 38.2 H RBC Hgb 9.0 L Hct 32.3 L MCV MCH 25 L MCHC 28 L RDW 20.0 H Plt Count 766 H Lymph % (Auto) [place] % (Auto) Lymph # [place] # Seg Neutrophils % Seg Neuts % (Manual) 85.0 H Lymphocytes % (Manual) 1.0 L Monocytes % (Manual) Nucleated RBC % 2.0 H Seg Neutrophils # Seg Neutrophils # Man 32.5 H Lymphocytes # (Manual) 0.4 L Monocytes # (Manual) 2.3 H PT INR POC ABG pH POC ABG pCO2 18.6 L POC ABG pO2 121 H Sodium 146 H Potassium Chloride 110.9 H Carbon Dioxide 11 L BUN 62 H Creatinine 4.0 H Glucose 64 L POC Glucose Lactic Acid Calcium 7.6 L Magnesium AST ALT Alkaline Phosphatase Troponin T C-Reactive Protein Total Protein Albumin LDL Cholesterol Direct HDL Cholesterol Hepatitis C Antibody Crossmatch 11/21/17 11/21/17 11/22/17 14:17 19:09 00:05 WBC RBC Hgb Hct MCV MCH MCHC RDW Plt Count Lymph % (Auto) [place] % (Auto) Lymph # [place] # Seg Neutrophils % Seg Neuts % (Manual) Lymphocytes % (Manual) Monocytes % (Manual) Nucleated RBC % Seg Neutrophils # Seg Neutrophils # Man Lymphocytes # (Manual) Monocytes # (Manual) PT INR POC ABG pH POC ABG pCO2 20.0 L POC ABG pO2 Sodium Potassium Chloride Carbon Dioxide BUN Creatinine Glucose POC Glucose 127 H Lactic Acid 7.70 H* Calcium Magnesium AST ALT Alkaline Phosphatase Troponin T C-Reactive Protein Total Protein Albumin LDL Cholesterol Direct HDL Cholesterol Hepatitis C Antibody Crossmatch 11/22/17 11/22/17 11/22/17 03:53 06:00 07:25 WBC RBC Hgb Hct MCV MCH MCHC RDW Plt Count Lymph % (Auto) [place] % (Auto) Lymph # [place] # Seg Neutrophils % Seg Neuts % (Manual) Lymphocytes % (Manual) Monocytes % (Manual) Nucleated RBC % Seg Neutrophils # Seg Neutrophils # Man Lymphocytes # (Manual) Monocytes # (Manual) PT INR POC ABG pH POC ABG pCO2 22.2 L POC ABG pO2 Sodium 147 H Potassium Chloride 111.9 H Carbon Dioxide 16 L BUN 72 H Creatinine 5.1 H Glucose 181 H POC Glucose 180 H Lactic Acid Calcium 7.1 L Magnesium AST ALT Alkaline Phosphatase Troponin T C-Reactive Protein Total Protein Albumin LDL Cholesterol Direct HDL Cholesterol Hepatitis C Antibody Crossmatch 11/22/17 11/22/17 11/22/17 07:25 07:25 12:05 WBC 31.4 H RBC 3.22 L Hgb 8.0 L Hct 26.7 L MCV 83 L MCH 25 L MCHC 30 L RDW 19.4 H Plt Count 602 H Lymph % (Auto) [place] % (Auto) Lymph # [place] # Seg Neutrophils % Seg Neuts % (Manual) Lymphocytes % (Manual) Monocytes % (Manual) Nucleated RBC % Seg Neutrophils # Seg Neutrophils # Man Lymphocytes # (Manual) Monocytes # (Manual) PT INR POC ABG pH POC ABG pCO2 POC ABG pO2 Sodium Potassium Chloride Carbon Dioxide BUN Creatinine Glucose POC Glucose 182 H Lactic Acid 5.00 H* Calcium Magnesium AST ALT Alkaline Phosphatase Troponin T C-Reactive Protein Total Protein Albumin LDL Cholesterol Direct HDL Cholesterol Hepatitis C Antibody Crossmatch 11/22/17 11/23/17 11/23/17 19:45 01:28 04:56 WBC RBC Hgb Hct MCV MCH MCHC RDW Plt Count Lymph % (Auto) [place] % (Auto) Lymph # [place] # Seg Neutrophils % Seg Neuts % (Manual) Lymphocytes % (Manual) Monocytes % (Manual) Nucleated RBC % Seg Neutrophils # Seg Neutrophils # Man Lymphocytes # (Manual) Monocytes # (Manual) PT INR POC ABG pH 7.505 H POC ABG pCO2 26.3 L POC ABG pO2 Sodium Potassium Chloride Carbon Dioxide BUN Creatinine Glucose POC Glucose 165 H Lactic Acid Calcium Magnesium AST ALT Alkaline Phosphatase Troponin T C-Reactive Protein Total Protein Albumin LDL Cholesterol Direct HDL Cholesterol Hepatitis C Antibody Reactive A Crossmatch 11/23/17 11/23/17 11/23/17 07:05 12:32 17:53 WBC RBC Hgb Hct MCV MCH MCHC RDW Plt Count Lymph % (Auto) [place] % (Auto) Lymph # [place] # Seg Neutrophils % Seg Neuts % (Manual) Lymphocytes % (Manual) Monocytes % (Manual) Nucleated RBC % Seg Neutrophils # Seg Neutrophils # Man Lymphocytes # (Manual) Monocytes # (Manual) PT INR POC ABG pH POC ABG pCO2 POC ABG pO2 Sodium Potassium Chloride Carbon Dioxide 18 L BUN 61 H Creatinine 4.2 H Glucose 153 H POC Glucose 138 H 173 H Lactic Acid Calcium 7.5 L Magnesium AST ALT Alkaline Phosphatase Troponin T C-Reactive Protein Total Protein Albumin LDL Cholesterol Direct HDL Cholesterol Hepatitis C Antibody Crossmatch 11/23/17 11/24/17 11/24/17 23:41 05:42 05:42 WBC 21.5 H RBC 2.48 L Hgb 6.2 L Hct 20.3 L D MCV 82 L MCH 25 L MCHC 31 L RDW 18.9 H Plt Count Lymph % (Auto) [place] % (Auto) Lymph # [place] # Seg Neutrophils % Seg Neuts % (Manual) 94.0 H Lymphocytes % (Manual) 3.0 L Monocytes % (Manual) Nucleated RBC % Seg Neutrophils # Seg Neutrophils # Man 20.2 H Lymphocytes # (Manual) 0.6 L Monocytes # (Manual) PT INR POC ABG pH POC ABG pCO2 POC ABG pO2 Sodium 149 H Potassium 2.8 L* D Chloride 113.9 H Carbon Dioxide 19 L BUN 31 H Creatinine 2.3 H Glucose 103 H POC Glucose 133 H Lactic Acid Calcium 5.3 L* D Magnesium 1.30 L AST ALT Alkaline Phosphatase Troponin T C-Reactive Protein Total Protein Albumin LDL Cholesterol Direct HDL Cholesterol Hepatitis C Antibody Crossmatch 11/24/17 11/24/17 11/24/17 05:42 08:27 08:27 WBC RBC Hgb Hct MCV MCH MCHC RDW Plt Count Lymph % (Auto) [place] % (Auto) Lymph # [place] # Seg Neutrophils % Seg Neuts % (Manual) Lymphocytes % (Manual) Monocytes % (Manual) Nucleated RBC % Seg Neutrophils # Seg Neutrophils # Man Lymphocytes # (Manual) Monocytes # (Manual) PT INR POC ABG pH POC ABG pCO2 POC ABG pO2 Sodium Potassium Chloride Carbon Dioxide BUN Creatinine Glucose POC Glucose Lactic Acid 5.40 H* 5.20 H* Calcium Magnesium AST ALT Alkaline Phosphatase Troponin T C-Reactive Protein Total Protein Albumin LDL Cholesterol Direct HDL Cholesterol Hepatitis C Antibody Crossmatch See Detail 11/24/17 11/24/17 11/24/17 12:13 17:22 21:53 WBC 23.0 H RBC 3.32 L Hgb 8.8 L Hct 27.1 L D MCV 82 L MCH 26 L MCHC RDW 17.3 H Plt Count Lymph % (Auto) [place] % (Auto) Lymph # [place] # Seg Neutrophils % Seg Neuts % (Manual) Lymphocytes % (Manual) Monocytes % (Manual) Nucleated RBC % Seg Neutrophils # Seg Neutrophils # Man Lymphocytes # (Manual) Monocytes # (Manual) PT INR POC ABG pH POC ABG pCO2 POC ABG pO2 Sodium Potassium Chloride Carbon Dioxide BUN Creatinine Glucose POC Glucose 138 H 180 H Lactic Acid Calcium Magnesium AST ALT Alkaline Phosphatase Troponin T C-Reactive Protein Total Protein Albumin LDL Cholesterol Direct HDL Cholesterol Hepatitis C Antibody Crossmatch 11/24/17 11/24/17 11/25/17 21:53 23:28 04:19 WBC RBC Hgb Hct MCV MCH MCHC RDW Plt Count Lymph % (Auto) [place] % (Auto) Lymph # [place] # Seg Neutrophils % Seg Neuts % (Manual) Lymphocytes % (Manual) Monocytes % (Manual) Nucleated RBC % Seg Neutrophils # Seg Neutrophils # Man Lymphocytes # (Manual) Monocytes # (Manual) PT INR POC ABG pH POC ABG pCO2 POC ABG pO2 Sodium Potassium Chloride 96.3 L Carbon Dioxide BUN 28 H 31 H Creatinine 2.3 H 2.6 H Glucose 125 H 101 H POC Glucose 111 H Lactic Acid Calcium 7.5 L D 7.4 L Magnesium AST 170 H ALT 179 H Alkaline Phosphatase 175 H Troponin T C-Reactive Protein Total Protein 5.5 L Albumin 1.8 L LDL Cholesterol Direct HDL Cholesterol Hepatitis C Antibody Crossmatch 11/25/17 11/25/17 11/26/17 04:19 04:19 06:29 WBC 22.5 H RBC 3.48 L Hgb 9.1 L Hct 28.3 L MCV 81 L MCH 26 L MCHC RDW 17.4 H Plt Count Lymph % (Auto) [place] % (Auto) Lymph # [place] # Seg Neutrophils % Seg Neuts % (Manual) Lymphocytes % (Manual) Monocytes % (Manual) Nucleated RBC % Seg Neutrophils # Seg Neutrophils # Man Lymphocytes # (Manual) Monocytes # (Manual) PT 23.6 H INR 1.96 H POC ABG pH POC ABG pCO2 POC ABG pO2 Sodium Potassium Chloride Carbon Dioxide BUN 31 H Creatinine 2.6 H Glucose 101 H POC Glucose Lactic Acid Calcium 7.5 L Magnesium AST ALT Alkaline Phosphatase Troponin T C-Reactive Protein Total Protein Albumin LDL Cholesterol Direct HDL Cholesterol Hepatitis C Antibody Crossmatch 11/26/17 11/27/17 11/27/17 06:34 04:06 04:06 WBC 11.3 H RBC 3.13 L Hgb 8.4 L Hct 25.8 L MCV 82 L MCH 27 L MCHC RDW 17.7 H Plt Count Lymph % (Auto) 7.4 L [place] % (Auto) Lymph # 0.8 L [place] # Seg Neutrophils % 83.7 H Seg Neuts % (Manual) Lymphocytes % (Manual) Monocytes % (Manual) Nucleated RBC % Seg Neutrophils # 9.5 H Seg Neutrophils # Man Lymphocytes # (Manual) Monocytes # (Manual) PT INR POC ABG pH POC ABG pCO2 POC ABG pO2 Sodium Potassium Chloride 97.9 L Carbon Dioxide BUN 43 H 29 H Creatinine 3.5 H 2.9 H Glucose POC Glucose Lactic Acid Calcium 7.5 L 8.1 L Magnesium AST ALT Alkaline Phosphatase Troponin T C-Reactive Protein Total Protein Albumin LDL Cholesterol Direct HDL Cholesterol Hepatitis C Antibody Crossmatch 11/27/17 11/28/17 11/28/17 18:11 00:16 03:50 WBC RBC Hgb Hct MCV MCH MCHC RDW Plt Count Lymph % (Auto) [place] % (Auto) Lymph # [place] # Seg Neutrophils % Seg Neuts % (Manual) Lymphocytes % (Manual) Monocytes % (Manual) Nucleated RBC % Seg Neutrophils # Seg Neutrophils # Man Lymphocytes # (Manual) Monocytes # (Manual) PT INR POC ABG pH POC ABG pCO2 POC ABG pO2 Sodium Potassium Chloride Carbon Dioxide BUN 39 H Creatinine 4.1 H Glucose 108 H POC Glucose 110 H 124 H Lactic Acid Calcium 7.9 L Magnesium AST ALT Alkaline Phosphatase Troponin T C-Reactive Protein Total Protein Albumin LDL Cholesterol Direct HDL Cholesterol Hepatitis C Antibody Crossmatch 11/28/17 11/28/17 11/28/17 05:03 11:36 17:42 WBC RBC Hgb Hct MCV MCH MCHC RDW Plt Count Lymph % (Auto) [place] % (Auto) Lymph # [place] # Seg Neutrophils % Seg Neuts % (Manual) Lymphocytes % (Manual) Monocytes % (Manual) Nucleated RBC % Seg Neutrophils # Seg Neutrophils # Man Lymphocytes # (Manual) Monocytes # (Manual) PT INR POC ABG pH POC ABG pCO2 POC ABG pO2 Sodium Potassium Chloride Carbon Dioxide BUN Creatinine Glucose POC Glucose 134 H 114 H 119 H Lactic Acid Calcium Magnesium AST ALT Alkaline Phosphatase Troponin T C-Reactive Protein Total Protein Albumin LDL Cholesterol Direct HDL Cholesterol Hepatitis C Antibody Crossmatch 11/29/17 11/29/17 11/29/17 00:22 05:25 05:25 WBC 12.3 H RBC 3.34 L Hgb 8.6 L Hct 27.3 L MCV 82 L MCH 26 L MCHC RDW 18.5 H Plt Count Lymph % (Auto) 3.7 L [place] % (Auto) 7.7 H Lymph # 0.5 L [place] # 1.0 H Seg Neutrophils % 86.5 H Seg Neuts % (Manual) Lymphocytes % (Manual) Monocytes % (Manual) Nucleated RBC % Seg Neutrophils # 10.7 H Seg Neutrophils # Man Lymphocytes # (Manual) Monocytes # (Manual) PT INR POC ABG pH POC ABG pCO2 POC ABG pO2 Sodium Potassium Chloride Carbon Dioxide BUN 29 H Creatinine 3.5 H Glucose 109 H POC Glucose 137 H Lactic Acid Calcium 7.8 L Magnesium AST ALT Alkaline Phosphatase Troponin T C-Reactive Protein Total Protein Albumin LDL Cholesterol Direct HDL Cholesterol Hepatitis C Antibody Crossmatch 11/29/17 11/30/17 11/30/17 05:26 00:26 04:17 WBC RBC Hgb Hct MCV MCH MCHC RDW Plt Count Lymph % (Auto) [place] % (Auto) Lymph # [place] # Seg Neutrophils % Seg Neuts % (Manual) Lymphocytes % (Manual) Monocytes % (Manual) Nucleated RBC % Seg Neutrophils # Seg Neutrophils # Man Lymphocytes # (Manual) Monocytes # (Manual) PT INR POC ABG pH POC ABG pCO2 POC ABG pO2 Sodium Potassium Chloride Carbon Dioxide BUN 38 H Creatinine 4.3 H Glucose 109 H POC Glucose 129 H 152 H Lactic Acid Calcium 7.8 L Magnesium AST ALT Alkaline Phosphatase Troponin T C-Reactive Protein Total Protein Albumin LDL Cholesterol Direct HDL Cholesterol Hepatitis C Antibody Crossmatch 11/30/17 11/30/17 11/30/17 12:17 16:23 23:35 WBC RBC Hgb Hct MCV MCH MCHC RDW Plt Count Lymph % (Auto) [place] % (Auto) Lymph # [place] # Seg Neutrophils % Seg Neuts % (Manual) Lymphocytes % (Manual) Monocytes % (Manual) Nucleated RBC % Seg Neutrophils # Seg Neutrophils # Man Lymphocytes # (Manual) Monocytes # (Manual) PT INR POC ABG pH POC ABG pCO2 POC ABG pO2 Sodium Potassium Chloride Carbon Dioxide BUN Creatinine Glucose POC Glucose 170 H 114 H 122 H Lactic Acid Calcium Magnesium AST ALT Alkaline Phosphatase Troponin T C-Reactive Protein Total Protein Albumin LDL Cholesterol Direct HDL Cholesterol Hepatitis C Antibody Crossmatch 12/01/17 12/01/17 12/01/17 04:09 04:09 12:17 WBC 14.1 H RBC 3.32 L Hgb 8.6 L Hct 27.0 L MCV 81 L MCH 26 L MCHC RDW 18.7 H Plt Count Lymph % (Auto) 5.5 L [place] % (Auto) 9.7 H Lymph # 0.8 L [place] # 1.4 H Seg Neutrophils % 82.9 H Seg Neuts % (Manual) Lymphocytes % (Manual) Monocytes % (Manual) Nucleated RBC % Seg Neutrophils # 11.7 H Seg Neutrophils # Man Lymphocytes # (Manual) Monocytes # (Manual) PT INR POC ABG pH POC ABG pCO2 POC ABG pO2 Sodium Potassium 3.4 L Chloride Carbon Dioxide BUN 21 H Creatinine 3.0 H Glucose 108 H POC Glucose 126 H Lactic Acid Calcium 8.0 L Magnesium AST ALT Alkaline Phosphatase Troponin T C-Reactive Protein Total Protein Albumin LDL Cholesterol Direct HDL Cholesterol Hepatitis C Antibody Crossmatch
--- NOTE | 2017-12-02 15:03 | Progress Note ---
Assessment and Plan - Patient Problems (1) Gastrostomy malfunction Current Visit: Yes Status: Acute Plan to address problem: Pt is stable. After reviewing the records, discussing the case with multiple attendings, and seeing the patient, it is clear that we do not have an acute perforation. Most likely, the PEG tube started to migrate out of position prior to 11/18 as evidenced by no PEG button seen on EGD and no obvious hole in the stomach. As the contrast is restricted to certain areas in the abdomen, the fluid is loculated. The "ascites" may be tube feeds and/or reactionary fluid. Regardless, patient is not showing signs of obvious peritonitis. In this case, it may be prudent to try placing a few drains in the abdomen to remove that largest collections. I have already discussed this case with Dr. Moreira who agreed to review the case and see if that was possible. The alternative would be to take the patient for an ex-lap and washout the abdomen. I'm concerned that there may be a lot of inflammatory changes in the abdomen which would put him at risk for bowel injuries from the procedure. Therefore, this will be our back-up plan if the drains do not resolve the problem. As for nutritional access , for now, I would recommend an NGT. I doubt he has an active leak, so there is no need to test the stomach prior to using it. I have explained this plan in detail to the daughter (Jannette) and the attendings from ICU, GI, and hospitalist service. All were in agreement. - 11/25/17 Initial Consult Pt appears stable. In light of the slowly rising WBC and the extensive nature of fluid collections in the abdomen, I think it would be best to try a surgical washout. I think there may be a location where I can get a camera into the abdominal cavity. If there is room to do a washout, then I will proceed to do so. If the entire abdomen is frozen from inflammatory changes, then I will abort and ask IR to drain a few more of the larger collections. I have discussed this with Dr. Stephens and Jannette (daughter). Procedure, risks, benefits , alternatives were discussed with Jannette. All questions were answered. Telephone consent was obtained. Will proceed to OR tomorrow. Please call with questions. Time=25min Subjective Date of service: 12/02/17 Patient Reports: Positive: other (no new events per staff) Objective Vital Signs - 12hr 12/02/17 12/02/17 12/02/17 03:00 04:00 05:00 Temperature 98.4 F Pulse Rate 86 92 H 96 H Pulse Rate [ 95 H Right From Monitor] Respiratory 27 H 29 H 30 H Rate Blood Pressure 122/68 127/71 128/72 O2 Sat by Pulse 100 99 98 Oximetry 12/02/17 12/02/17 12/02/17 06:00 08:00 09:35 Temperature 98.4 F Pulse Rate 83 89 Pulse Rate [ Right From Monitor] Respiratory 27 H Rate Blood Pressure 130/70 141/82 O2 Sat by Pulse 100 Oximetry 12/02/17 12:00 Temperature 99.1 F Pulse Rate Pulse Rate [ Right From Monitor] Respiratory Rate Blood Pressure O2 Sat by Pulse Oximetry - General physical appearance no distress, no pain, other (not interactive) - Respiratory normal expansion, normal respiratory effort - Abdomen soft, not tender, not distended, not guarding, not rigid, other (drains unchanged. still with purulent, greyish drainage from LUQ drain) - Labs 12/01/17 04:09 12/01/17 04:09
[2017-12-02] MEDS: PROCRIT IV PRN (19:05)
[2017-12-03] MEDS: LOPRESSOR PO SCH ×3 (00:12→22:05)
[2017-12-03] MEDS: SODIUM CHLORIDE FLUSH SYRINGE 10 ML IV SCH ×4 (00:14→22:10)
[2017-12-03] MEDS: PROTONIX (nf) FEEDTUBE SCH ×3 (00:15→22:15)
[2017-12-03 03:13] LABS: Hematocrit 25.8 % (35.5-45.6); Hemoglobin 8.5 gm/dl (11.8-15.2); Mean Corpuscular HGB Conc 33 % (32-34); Mean Corpuscular Hemoglobin 26 pg (28-32); Mean Corpuscular Volume 80 fl (84-94); Platelet Count 128 K/mm3 (140-440); Red Blood Count 3.21 M/mm3 (3.65-5.03); Red Cell Distribution Width 18.4 % (13.2-15.2)
[2017-12-03 03:26] LABS: Calcium 8.4 mg/dL (8.4-10.2)
--- NOTE | 2017-12-03 07:04 | Progress Note ---
Assessment and Plan Assessment * Acute kidney injury secondary to ATN --Intermittent HD started on 11/23/17 * Sepsis secondary to peritonitis/PEG malpositioning --RUQ/LUQ drains: Enterobacter, Heather (non albicans) * Aspiration pneumonitis related to above * Anemia * Acute CVA * Carotid artery disease s/p CEA * Encephalopathy Plan: * No evidence of renal recovery * Continue HD MWF. UF as tolerated * Abx per ID * IR and surgery notes reviewed * Strict I/O * Avoid potential nephrptoxins * Dose medications for renal function * Replete lytes prn * Avoid nephrotoxins Subjective Date of service: 12/09/17 Principal diagnosis: Acute hypoxic respiratory failure due to Pneumonia on MV> 96 hours s/p Trach Interval history: No acute events overnight Objective - Vital Signs Vital signs: Vital Signs - 12hr 12/02/17 12/02/17 12/02/17 19:15 19:30 19:40 Temperature 98.8 F Pulse Rate 110 H 110 H 103 H Pulse Rate [ Right From Monitor] Respiratory 29 H Rate Blood Pressure 113/76 105/71 127/75 O2 Sat by Pulse Oximetry O2 Sat by Pulse Oximetry [ Assessment] O2 Sat by Pulse 100 Oximetry [ Bilateral Throughout] 12/02/17 12/02/17 12/02/17 20:00 20:17 20:21 Temperature 98.9 F Pulse Rate 115 H Pulse Rate [ 104 H Right From Monitor] Respiratory 38 H Rate Blood Pressure 125/72 O2 Sat by Pulse 100 100 Oximetry O2 Sat by Pulse 100 Oximetry [ Assessment] O2 Sat by Pulse Oximetry [ Bilateral Throughout] 12/02/17 12/02/17 12/02/17 20:57 21:00 22:00 Temperature Pulse Rate 104 H 107 H 103 H Pulse Rate [ Right From Monitor] Respiratory 31 H 36 H 34 H Rate Blood Pressure 110/62 123/69 109/64 O2 Sat by Pulse 100 100 99 Oximetry O2 Sat by Pulse Oximetry [ Assessment] O2 Sat by Pulse Oximetry [ Bilateral Throughout] 12/02/17 12/03/17 12/03/17 23:00 00:00 00:12 Temperature 99.0 F Pulse Rate 104 H 105 H 105 H Pulse Rate [ 108 H Right From Monitor] Respiratory 26 H 30 H Rate Blood Pressure 118/73 91/39 91/39 O2 Sat by Pulse 100 99 Oximetry O2 Sat by Pulse Oximetry [ Assessment] O2 Sat by Pulse Oximetry [ Bilateral Throughout] 12/03/17 12/03/17 12/03/17 01:00 02:00 02:01 Temperature Pulse Rate 105 H 97 H Pulse Rate [ Right From Monitor] Respiratory 33 H 29 H Rate Blood Pressure 104/48 105/46 O2 Sat by Pulse 100 100 Oximetry O2 Sat by Pulse 100 Oximetry [ Assessment] O2 Sat by Pulse Oximetry [ Bilateral Throughout] 12/03/17 12/03/17 12/03/17 03:00 04:00 05:00 Temperature 99.0 F Pulse Rate 107 H 97 H 107 H Pulse Rate [ 105 H Right From Monitor] Respiratory 32 H 32 H 34 H Rate Blood Pressure 133/79 115/65 145/87 O2 Sat by Pulse 96 100 100 Oximetry O2 Sat by Pulse Oximetry [ Assessment] O2 Sat by Pulse Oximetry [ Bilateral Throughout] 12/03/17 06:00 Temperature Pulse Rate 91 H Pulse Rate [ Right From Monitor] Respiratory 25 H Rate Blood Pressure 159/89 O2 Sat by Pulse 100 Oximetry O2 Sat by Pulse Oximetry [ Assessment] O2 Sat by Pulse Oximetry [ Bilateral Throughout] - General Appearance General appearance: well-developed EENT: ATNC Neck: other (trach ) Respiratory: Present: Decreased Breath Sounds Cardiology: regular, S1S2 Gastrointestinal: hypoactive bowel sounds, no distended Integumentary: no rash Neurologic: other Musculoskeletal: other (+pedal edema) - Lab 12/03/17 02:52 12/03/17 Unknown Most recent lab results Calcium 8.4 mg/dL (8.4-10.2) 12/03/17 Unknown Magnesium 2.00 mg/dL (1.7-2.3) 11/24/17 21:53
[2017-12-03] MEDS ORDERED: XYLOCAINE MPF 2% ONE (07:19)
[2017-12-03] MEDS ORDERED: ZEMURON IV ONE ×2 (07:19→09:13)
[2017-12-03] MEDS ORDERED: ALBURX 25% (ALBUMIN) IV ONE (07:57)
[2017-12-03] MEDS ORDERED: PEPCID IV NR (08:00)
[2017-12-03] MEDS ORDERED: NACL 0.9% 1000 ML 1,000 ML IV SCH (08:00)
[2017-12-03] MEDS ORDERED: XYLOCAINE 1% 20 mL ONE (08:01)
[2017-12-03] MEDS ORDERED: MARCAINE 0.5% INFILTRATI ONE ×2 (08:01→08:58)
[2017-12-03] MEDS ORDERED: DIPRIVAN 10 MG/ML IV ONE (08:07)
[2017-12-03] MEDS ORDERED: DILAUDID ONE (08:08)
[2017-12-03] MEDS ORDERED: XYLOCAINE 1% 20 mL INFILTRATI ONE (08:58)
[2017-12-03] MEDS ORDERED: NACL 0.9% IR ONE (08:59)
[2017-12-03] MEDS ORDERED: WATER FOR IRRIG STERILE IR ONE (08:59)
[2017-12-03] MEDS ORDERED: NEO SYNEPHRINE/NS Syringe(OR USE) IV ONE (09:13)
--- NOTE | 2017-12-03 09:17 | Anesthesia Consultation ---
Anesthesia Consult and Med Hx Date of service: 12/03/17 - Airway Anesthetic Teeth Evaluation: Edentulous ROM Head & Neck: Adequate Mental/Hyoid Distance: Adequate Mallampati Class: Class I Intubation Access Assessment: Good - Pulmonary Exam CTA: Yes - Cardiac Exam Cardiac Exam: RRR - Pre-Operative Health Status ASA Pre-Surgery Classification: ASA4 Proposed Anesthetic Plan: General - Pulmonary Hx Smoking: Yes Hx Asthma: No COPD: No Hx Pneumonia: Yes (aspiration PNA; recent CXR clear) - Cardiovascular System Hx Hypertension: Yes Hx Coronary Artery Disease: Yes (nonobstructive) Hx Pacemaker: No Hx Internal Defibrillator: No - Central Nervous System CVA: Yes (Multiple; most recent 09/2017 after carotid surgery) Hx Psychiatric Problems: No - Gastrointestinal Hx Ulcer: Yes (hiatal hernia, gastritis, and linear gastric ulcer noted on recent EGD) - Endocrine Hx Renal Disease: Yes (DARYA complicated by hypernatremia) Hx End Stage Renal Disease: No Hx Liver Disease: No Hx Insulin Dependent Diabetes: No Hx Thyroid Disease: No - Hematic Hx Anemia: Yes - Other Systems Hx Cancer: No - Additional Comments Anesthesia Medical History Comments: PMH HTN, nonobstructive CAD, multiple prior CVAs who originally presented in 09/2017 with CVA 2/2 carotid stenosis. He underwent vascular surgery x2 with post op course complicated by massive MCA CVA and encephalopathy. He was discharge to nursing facility and readmitted 11/12 with sepsis 2/2 aspiration PNA. He is now scheduled for trach placement. Anesthesia consent obtained from Jannette Bowen (daughter, KILEY) via telephone.
--- NOTE | 2017-12-03 09:18 | Anesthesia Day of Surgery ---
Anesthesia Day of Surgery - Day of Surgery Patient Examined: Yes Patient H&P Reviewed: Yes Patient is NPO: Yes
[2017-12-03] MEDS: MAXIPIME/NS 2 GM/100 ML 2 GM/100 ML BAG IV SCH ×2 (09:25→12:00)
[2017-12-03] MEDS ORDERED: ZOFRAN ONE (09:55)
[2017-12-03] MEDS ORDERED: BLOXIVERZ ONE (09:55)
[2017-12-03] MEDS ORDERED: ROBINUL ONE (09:55)
--- NOTE | 2017-12-03 10:07 | Post Operative Note ---
Pre-op diagnosis: intra-abdominal abscesses Post-op diagnosis: same Findings: diffuse, thick inflammatory changes. loculated purulent fluid collections. Procedure: Dx lap and washout of abdomen. Anesthesia: GETA Surgeon: EDEL ARANGO Estimated blood loss: 50-100ml Pathology: list (culture swab) Specimen disposition: to lab Condition: stable Disposition: ICU
--- NOTE | 2017-12-03 10:16 | Progress Note ---
Assessment and Plan Assessment * Acute kidney injury secondary to ATN --Intermittent HD started on 11/23/17 * Sepsis secondary to peritonitis/PEG malpositioning --RUQ/LUQ drains: Enterobacter, Heather (non albicans) * Aspiration pneumonitis related to above * Anemia * Acute CVA * Carotid artery disease s/p CEA * Encephalopathy Plan: * No evidence of renal recovery * Continue HD MWF. UF as tolerated * Abx per ID * IR and surgery notes reviewed - to OR today for drainage of intraabominal fluid collection * Strict I/O * Avoid potential nephrptoxins * Dose medications for renal function * Replete lytes prn * Avoid nephrotoxins Subjective Date of service: 12/03/17 Principal diagnosis: Acute hypoxic respiratory failure due to Pneumonia on MV> 96 hours s/p Trach Objective - Vital Signs Vital signs: Vital Signs - 12hr 12/02/17 12/03/17 12/03/17 23:00 00:00 00:12 Temperature 99.0 F Pulse Rate 104 H 105 H 105 H Pulse Rate [ 108 H Right From Monitor] Respiratory 26 H 30 H Rate Blood Pressure 118/73 91/39 91/39 O2 Sat by Pulse 100 99 Oximetry O2 Sat by Pulse Oximetry [ Assessment] 12/03/17 12/03/17 12/03/17 01:00 02:00 02:01 Temperature Pulse Rate 105 H 97 H Pulse Rate [ Right From Monitor] Respiratory 33 H 29 H Rate Blood Pressure 104/48 105/46 O2 Sat by Pulse 100 100 Oximetry O2 Sat by Pulse 100 Oximetry [ Assessment] 12/03/17 12/03/17 12/03/17 03:00 04:00 05:00 Temperature 99.0 F Pulse Rate 107 H 97 H 107 H Pulse Rate [ 105 H Right From Monitor] Respiratory 32 H 32 H 34 H Rate Blood Pressure 133/79 115/65 145/87 O2 Sat by Pulse 96 100 100 Oximetry O2 Sat by Pulse Oximetry [ Assessment] 12/03/17 12/03/17 06:00 08:00 Temperature 97.9 F Pulse Rate 91 H Pulse Rate [ Right From Monitor] Respiratory 25 H Rate Blood Pressure 159/89 O2 Sat by Pulse 100 Oximetry O2 Sat by Pulse Oximetry [ Assessment] - Lab 12/03/17 02:52 12/03/17 Unknown Most recent lab results Calcium 8.4 mg/dL (8.4-10.2) 12/03/17 Unknown Magnesium 2.00 mg/dL (1.7-2.3) 11/24/17 21:53
--- NOTE | 2017-12-03 11:37 | Progress Note ---
Assessment and Plan 67 y/o male with acute on chronic respiratory failure, now trached, with peritonitis from dislodged peg tube s/p 2 IR drains now with NGT feedings. 1. Trach Care 2. Surgery to discuss with IR another drain placement 3. IV abx 4. PT/OT 5. Likely will transition out of ICU tomorrow. Subjective Date of service: 12/03/17 Principal diagnosis: Acute hypoxic respiratory failure due to Pneumonia on MV> 96 hours s/p Trach Interval history: Back from Surgery. complicated space. Will need additional drain. Objective Vital Signs - 12hr 12/03/17 12/03/17 12/03/17 00:00 00:12 01:00 Temperature 99.0 F Pulse Rate 105 H 105 H 105 H Pulse Rate [ 108 H Right From Monitor] Respiratory 30 H 33 H Rate Blood Pressure 91/39 91/39 104/48 O2 Sat by Pulse 99 100 Oximetry O2 Sat by Pulse Oximetry [ Assessment] 12/03/17 12/03/17 12/03/17 02:00 02:01 03:00 Temperature Pulse Rate 97 H 107 H Pulse Rate [ Right From Monitor] Respiratory 29 H 32 H Rate Blood Pressure 105/46 133/79 O2 Sat by Pulse 100 96 Oximetry O2 Sat by Pulse 100 Oximetry [ Assessment] 12/03/17 12/03/17 12/03/17 04:00 05:00 06:00 Temperature 99.0 F Pulse Rate 97 H 107 H 91 H Pulse Rate [ 105 H Right From Monitor] Respiratory 32 H 34 H 25 H Rate Blood Pressure 115/65 145/87 159/89 O2 Sat by Pulse 100 100 100 Oximetry O2 Sat by Pulse Oximetry [ Assessment] 12/03/17 12/03/17 12/03/17 08:00 10:17 10:30 Temperature 97.9 F 97.4 F L Pulse Rate 93 H 96 H Pulse Rate [ Right From Monitor] Respiratory 25 H 26 H Rate Blood Pressure 113/75 129/78 O2 Sat by Pulse 100 100 Oximetry O2 Sat by Pulse Oximetry [ Assessment] 12/03/17 11:00 Temperature Pulse Rate 96 H Pulse Rate [ Right From Monitor] Respiratory 25 H Rate Blood Pressure 117/73 O2 Sat by Pulse 100 Oximetry O2 Sat by Pulse Oximetry [ Assessment] Constitutional: other (s/p trach, awake) Eyes: non-icteric ENT: oropharynx moist Neck: supple Effort: normal Ascultation: Bilateral: clear, rhonchi (sporadic), other (coarse BS bilaterally) Cardiovascular: regular rate and rhythm (no mrg) Gastrointestinal: normoactive bowel sounds, soft, non-tender, other (distended but better after drainage) Integumentary: normal Extremities: no cyanosis, pink and warm, anasarca Neurologic: other (L hemiparesis) Psychiatric: other (unable to assess) CBC and BMP: 12/03/17 02:52 12/03/17 Unknown ABG, PT/INR, D-dimer: ABG POC ABG pH 7.505 (7.35-7.45) H 11/23/17 04:56 POC ABG pCO2 26.3 (35-45) L 11/23/17 04:56 POC ABG pO2 100 (80-105) 11/23/17 04:56 POC ABG HCO3 20.8 11/23/17 04:56 POC ABG Total CO2 22 11/23/17 04:56 POC ABG O2 Sat 98 11/23/17 04:56 PT/INR, D-dimer PT 23.6 Sec. (12.2-14.9) H 11/26/17 06:29 INR 1.96 (0.87-1.13) H 11/26/17 06:29 Abnormal lab findings: Abnormal Labs 11/11/17 11/11/17 11/11/17 23:18 23:20 23:20 WBC RBC Hgb 10.4 L Hct 32.6 L D MCV MCH 27 L MCHC RDW 17.4 H Plt Count 105 L Lymph % (Auto) [place] % (Auto) Lymph # [place] # Seg Neutrophils % Seg Neuts % (Manual) Lymphocytes % (Manual) 8.0 L Monocytes % (Manual) Nucleated RBC % 1.0 H Seg Neutrophils # Seg Neutrophils # Man Lymphocytes # (Manual) 0.7 L Monocytes # (Manual) PT INR POC ABG pH 7.550 H POC ABG pCO2 31.6 L POC ABG pO2 Sodium 146 H Potassium Chloride Carbon Dioxide BUN 26 H Creatinine 1.7 H D Glucose 133 H POC Glucose Lactic Acid Calcium Magnesium AST ALT Alkaline Phosphatase Troponin T 0.117 H* C-Reactive Protein Total Protein Albumin 2.5 L LDL Cholesterol Direct 42 L HDL Cholesterol 24 L Hepatitis C Antibody Crossmatch 11/11/17 11/12/17 11/12/17 23:20 00:23 00:23 WBC RBC Hgb Hct MCV MCH MCHC RDW Plt Count Lymph % (Auto) [place] % (Auto) Lymph # [place] # Seg Neutrophils % Seg Neuts % (Manual) Lymphocytes % (Manual) Monocytes % (Manual) Nucleated RBC % Seg Neutrophils # Seg Neutrophils # Man Lymphocytes # (Manual) Monocytes # (Manual) PT 16.7 H INR 1.28 H POC ABG pH POC ABG pCO2 POC ABG pO2 Sodium Potassium Chloride Carbon Dioxide BUN Creatinine Glucose POC Glucose Lactic Acid 3.20 H* Calcium Magnesium AST ALT Alkaline Phosphatase Troponin T C-Reactive Protein 25.70 H Total Protein Albumin LDL Cholesterol Direct HDL Cholesterol Hepatitis C Antibody Crossmatch 11/12/17 11/12/17 11/12/17 00:46 01:27 01:27 WBC RBC Hgb Hct MCV MCH MCHC RDW Plt Count Lymph % (Auto) [place] % (Auto) Lymph # [place] # Seg Neutrophils % Seg Neuts % (Manual) Lymphocytes % (Manual) Monocytes % (Manual) Nucleated RBC % Seg Neutrophils # Seg Neutrophils # Man Lymphocytes # (Manual) Monocytes # (Manual) PT INR POC ABG pH 7.495 H POC ABG pCO2 32.0 L POC ABG pO2 64 L Sodium Potassium Chloride Carbon Dioxide BUN Creatinine Glucose POC Glucose Lactic Acid 3.70 H* Calcium Magnesium AST ALT Alkaline Phosphatase Troponin T 0.096 H C-Reactive Protein Total Protein Albumin LDL Cholesterol Direct HDL Cholesterol Hepatitis C Antibody Crossmatch 11/12/17 11/12/17 11/12/17 03:21 04:50 06:27 WBC RBC Hgb Hct MCV MCH MCHC RDW Plt Count Lymph % (Auto) [place] % (Auto) Lymph # [place] # Seg Neutrophils % Seg Neuts % (Manual) Lymphocytes % (Manual) Monocytes % (Manual) Nucleated RBC % Seg Neutrophils # Seg Neutrophils # Man Lymphocytes # (Manual) Monocytes # (Manual) PT INR POC ABG pH POC ABG pCO2 POC ABG pO2 109 H Sodium Potassium Chloride Carbon Dioxide BUN Creatinine Glucose POC Glucose Lactic Acid 3.80 H* 2.20 H* Calcium Magnesium AST ALT Alkaline Phosphatase Troponin T C-Reactive Protein Total Protein Albumin LDL Cholesterol Direct HDL Cholesterol Hepatitis C Antibody Crossmatch 11/12/17 11/12/17 11/12/17 09:24 09:24 09:24 WBC RBC Hgb 10.4 L Hct 33.4 L MCV MCH MCHC RDW Plt Count Lymph % (Auto) [place] % (Auto) Lymph # [place] # Seg Neutrophils % Seg Neuts % (Manual) Lymphocytes % (Manual) Monocytes % (Manual) Nucleated RBC % Seg Neutrophils # Seg Neutrophils # Man Lymphocytes # (Manual) Monocytes # (Manual) PT INR POC ABG pH POC ABG pCO2 POC ABG pO2 Sodium Potassium Chloride Carbon Dioxide BUN Creatinine Glucose POC Glucose Lactic Acid 2.90 H* Calcium Magnesium AST ALT Alkaline Phosphatase Troponin T 0.091 H C-Reactive Protein Total Protein Albumin LDL Cholesterol Direct HDL Cholesterol Hepatitis C Antibody Crossmatch 11/12/17 11/12/17 11/12/17 12:56 20:03 Unknown WBC RBC Hgb Hct MCV MCH MCHC RDW Plt Count Lymph % (Auto) [place] % (Auto) Lymph # [place] # Seg Neutrophils % Seg Neuts % (Manual) Lymphocytes % (Manual) Monocytes % (Manual) Nucleated RBC % Seg Neutrophils # Seg Neutrophils # Man Lymphocytes # (Manual) Monocytes # (Manual) PT INR POC ABG pH POC ABG pCO2 POC ABG pO2 Sodium Potassium Chloride Carbon Dioxide BUN Creatinine Glucose POC Glucose Lactic Acid 3.60 H* Calcium Magnesium AST ALT Alkaline Phosphatase Troponin T 0.102 H* 0.156 H* D C-Reactive Protein Total Protein Albumin LDL Cholesterol Direct HDL Cholesterol Hepatitis C Antibody Crossmatch 11/12/17 11/13/17 11/13/17 Unknown 04:50 04:50 WBC 12.2 H RBC 3.51 L Hgb 9.3 L Hct 30.1 L MCV MCH 26 L MCHC 31 L RDW 18.0 H Plt Count 128 L Lymph % (Auto) 8.6 L [place] % (Auto) 11.1 H Lymph # 1.1 L [place] # 1.4 H Seg Neutrophils % 80.1 H Seg Neuts % (Manual) Lymphocytes % (Manual) Monocytes % (Manual) Nucleated RBC % Seg Neutrophils # 9.8 H Seg Neutrophils # Man Lymphocytes # (Manual) Monocytes # (Manual) PT INR POC ABG pH POC ABG pCO2 POC ABG pO2 Sodium 149 H Potassium 5.1 H Chloride 114.4 H Carbon Dioxide 18 L BUN 52 H Creatinine 3.3 H D Glucose 129 H POC Glucose Lactic Acid Calcium 7.9 L Magnesium AST ALT Alkaline Phosphatase Troponin T 0.098 H C-Reactive Protein Total Protein Albumin LDL Cholesterol Direct HDL Cholesterol Hepatitis C Antibody Crossmatch 11/13/17 11/13/17 11/14/17 04:51 09:34 04:21 WBC RBC Hgb Hct MCV MCH MCHC RDW Plt Count Lymph % (Auto) [place] % (Auto) Lymph # [place] # Seg Neutrophils % Seg Neuts % (Manual) Lymphocytes % (Manual) Monocytes % (Manual) Nucleated RBC % Seg Neutrophils # Seg Neutrophils # Man Lymphocytes # (Manual) Monocytes # (Manual) PT INR POC ABG pH POC ABG pCO2 30.1 L 29.8 L POC ABG pO2 135 H Sodium Potassium Chloride Carbon Dioxide BUN Creatinine Glucose POC Glucose Lactic Acid 2.10 H* Calcium Magnesium AST ALT Alkaline Phosphatase Troponin T C-Reactive Protein Total Protein Albumin LDL Cholesterol Direct HDL Cholesterol Hepatitis C Antibody Crossmatch 11/15/17 11/15/17 11/16/17 04:52 15:50 05:17 WBC RBC Hgb Hct MCV MCH MCHC RDW Plt Count Lymph % (Auto) [place] % (Auto) Lymph # [place] # Seg Neutrophils % Seg Neuts % (Manual) Lymphocytes % (Manual) Monocytes % (Manual) Nucleated RBC % Seg Neutrophils # Seg Neutrophils # Man Lymphocytes # (Manual) Monocytes # (Manual) PT INR POC ABG pH POC ABG pCO2 29.5 L 31.5 L POC ABG pO2 115 H 122 H Sodium 154 H Potassium Chloride 117.9 H Carbon Dioxide 19 L BUN 87 H Creatinine 4.1 H Glucose POC Glucose Lactic Acid Calcium 8.1 L Magnesium AST ALT Alkaline Phosphatase Troponin T C-Reactive Protein Total Protein Albumin LDL Cholesterol Direct HDL Cholesterol Hepatitis C Antibody Crossmatch 11/16/17 11/17/17 11/17/17 16:37 04:07 10:00 WBC 14.7 H RBC 3.23 L Hgb 8.3 L Hct 28.1 L MCV MCH 26 L MCHC 30 L RDW 18.8 H Plt Count Lymph % (Auto) [place] % (Auto) Lymph # [place] # Seg Neutrophils % Seg Neuts % (Manual) 75 H Lymphocytes % (Manual) 8.0 L Monocytes % (Manual) Nucleated RBC % 1.0 H Seg Neutrophils # Seg Neutrophils # Man 11.0 H Lymphocytes # (Manual) Monocytes # (Manual) 0.9 H PT INR POC ABG pH POC ABG pCO2 POC ABG pO2 Sodium 153 H 155 H Potassium Chloride 117.3 H 119.4 H Carbon Dioxide 19 L 20 L BUN 90 H 89 H Creatinine 3.9 H 3.6 H Glucose 111 H 115 H POC Glucose Lactic Acid Calcium 8.1 L 8.0 L Magnesium AST ALT Alkaline Phosphatase Troponin T C-Reactive Protein Total Protein Albumin LDL Cholesterol Direct HDL Cholesterol Hepatitis C Antibody Crossmatch 11/18/17 11/18/17 11/18/17 04:34 04:34 04:34 WBC 15.5 H RBC 3.13 L Hgb 8.1 L Hct 26.3 L MCV MCH 26 L MCHC 31 L RDW 18.6 H Plt Count Lymph % (Auto) [place] % (Auto) Lymph # [place] # Seg Neutrophils % Seg Neuts % (Manual) 81.0 H Lymphocytes % (Manual) 7.0 L Monocytes % (Manual) Nucleated RBC % 1.0 H Seg Neutrophils # Seg Neutrophils # Man 12.6 H Lymphocytes # (Manual) 1.1 L Monocytes # (Manual) PT 16.7 H INR 1.30 H POC ABG pH POC ABG pCO2 POC ABG pO2 Sodium 155 H Potassium 3.2 L Chloride 121.0 H Carbon Dioxide 20 L BUN 74 H Creatinine 2.9 H Glucose 126 H POC Glucose Lactic Acid Calcium 7.9 L Magnesium AST ALT Alkaline Phosphatase Troponin T C-Reactive Protein Total Protein Albumin LDL Cholesterol Direct HDL Cholesterol Hepatitis C Antibody Crossmatch 11/19/17 11/19/17 11/20/17 04:44 04:44 00:38 WBC 19.0 H 22.2 H RBC 3.20 L 3.17 L Hgb 8.4 L 7.9 L Hct 27.9 L 26.4 L MCV 83 L MCH 26 L 25 L MCHC 30 L 30 L RDW 19.1 H 18.9 H Plt Count Lymph % (Auto) [place] % (Auto) Lymph # [place] # Seg Neutrophils % Seg Neuts % (Manual) 83.0 H Lymphocytes % (Manual) 3.0 L Monocytes % (Manual) 9.0 H Nucleated RBC % Seg Neutrophils # Seg Neutrophils # Man 18.4 H Lymphocytes # (Manual) 0.7 L Monocytes # (Manual) 2.0 H PT INR POC ABG pH POC ABG pCO2 POC ABG pO2 Sodium 152 H Potassium Chloride 117.1 H Carbon Dioxide 17 L BUN 66 H Creatinine 2.8 H Glucose 119 H POC Glucose Lactic Acid Calcium 7.8 L Magnesium 2.70 H AST ALT Alkaline Phosphatase Troponin T C-Reactive Protein Total Protein Albumin LDL Cholesterol Direct HDL Cholesterol Hepatitis C Antibody Crossmatch 11/20/17 11/20/17 11/20/17 03:29 04:48 13:38 WBC RBC Hgb Hct MCV MCH MCHC RDW Plt Count Lymph % (Auto) [place] % (Auto) Lymph # [place] # Seg Neutrophils % Seg Neuts % (Manual) Lymphocytes % (Manual) Monocytes % (Manual) Nucleated RBC % Seg Neutrophils # Seg Neutrophils # Man Lymphocytes # (Manual) Monocytes # (Manual) PT INR POC ABG pH POC ABG pCO2 29.4 L POC ABG pO2 Sodium 148 H Potassium 3.4 L Chloride 113.7 H Carbon Dioxide 18 L BUN 59 H Creatinine 2.7 H Glucose 113 H POC Glucose 128 H Lactic Acid Calcium 7.8 L Magnesium AST ALT Alkaline Phosphatase Troponin T C-Reactive Protein Total Protein Albumin LDL Cholesterol Direct HDL Cholesterol Hepatitis C Antibody Crossmatch 11/20/17 11/20/17 11/21/17 17:38 23:40 00:13 WBC RBC Hgb 8.4 L Hct 28.0 L MCV MCH MCHC RDW Plt Count Lymph % (Auto) [place] % (Auto) Lymph # [place] # Seg Neutrophils % Seg Neuts % (Manual) Lymphocytes % (Manual) Monocytes % (Manual) Nucleated RBC % Seg Neutrophils # Seg Neutrophils # Man Lymphocytes # (Manual) Monocytes # (Manual) PT INR POC ABG pH POC ABG pCO2 POC ABG pO2 Sodium Potassium Chloride Carbon Dioxide BUN Creatinine Glucose POC Glucose 115 H 145 H Lactic Acid Calcium Magnesium AST ALT Alkaline Phosphatase Troponin T C-Reactive Protein Total Protein Albumin LDL Cholesterol Direct HDL Cholesterol Hepatitis C Antibody Crossmatch 11/21/17 11/21/17 11/21/17 04:30 04:30 04:58 WBC 21.0 H RBC Hgb 9.6 L Hct 32.7 L MCV MCH 25 L MCHC 29 L RDW 19.7 H Plt Count 746 H Lymph % (Auto) [place] % (Auto) Lymph # [place] # Seg Neutrophils % Seg Neuts % (Manual) Lymphocytes % (Manual) Monocytes % (Manual) Nucleated RBC % Seg Neutrophils # Seg Neutrophils # Man Lymphocytes # (Manual) Monocytes # (Manual) PT INR POC ABG pH POC ABG pCO2 POC ABG pO2 Sodium Potassium Chloride 109.4 H Carbon Dioxide 14 L BUN 59 H Creatinine 3.0 H Glucose 137 H POC Glucose 132 H Lactic Acid Calcium 7.6 L Magnesium AST ALT Alkaline Phosphatase Troponin T C-Reactive Protein Total Protein Albumin LDL Cholesterol Direct HDL Cholesterol Hepatitis C Antibody Crossmatch 11/21/17 11/21/17 11/21/17 06:30 13:43 14:17 WBC 38.2 H RBC Hgb 9.0 L Hct 32.3 L MCV MCH 25 L MCHC 28 L RDW 20.0 H Plt Count 766 H Lymph % (Auto) [place] % (Auto) Lymph # [place] # Seg Neutrophils % Seg Neuts % (Manual) 85.0 H Lymphocytes % (Manual) 1.0 L Monocytes % (Manual) Nucleated RBC % 2.0 H Seg Neutrophils # Seg Neutrophils # Man 32.5 H Lymphocytes # (Manual) 0.4 L Monocytes # (Manual) 2.3 H PT INR POC ABG pH POC ABG pCO2 18.6 L POC ABG pO2 121 H Sodium 146 H Potassium Chloride 110.9 H Carbon Dioxide 11 L BUN 62 H Creatinine 4.0 H Glucose 64 L POC Glucose Lactic Acid Calcium 7.6 L Magnesium AST ALT Alkaline Phosphatase Troponin T C-Reactive Protein Total Protein Albumin LDL Cholesterol Direct HDL Cholesterol Hepatitis C Antibody Crossmatch 11/21/17 11/21/17 11/22/17 14:17 19:09 00:05 WBC RBC Hgb Hct MCV MCH MCHC RDW Plt Count Lymph % (Auto) [place] % (Auto) Lymph # [place] # Seg Neutrophils % Seg Neuts % (Manual) Lymphocytes % (Manual) Monocytes % (Manual) Nucleated RBC % Seg Neutrophils # Seg Neutrophils # Man Lymphocytes # (Manual) Monocytes # (Manual) PT INR POC ABG pH POC ABG pCO2 20.0 L POC ABG pO2 Sodium Potassium Chloride Carbon Dioxide BUN Creatinine Glucose POC Glucose 127 H Lactic Acid 7.70 H* Calcium Magnesium AST ALT Alkaline Phosphatase Troponin T C-Reactive Protein Total Protein Albumin LDL Cholesterol Direct HDL Cholesterol Hepatitis C Antibody Crossmatch 11/22/17 11/22/17 11/22/17 03:53 06:00 07:25 WBC RBC Hgb Hct MCV MCH MCHC RDW Plt Count Lymph % (Auto) [place] % (Auto) Lymph # [place] # Seg Neutrophils % Seg Neuts % (Manual) Lymphocytes % (Manual) Monocytes % (Manual) Nucleated RBC % Seg Neutrophils # Seg Neutrophils # Man Lymphocytes # (Manual) Monocytes # (Manual) PT INR POC ABG pH POC ABG pCO2 22.2 L POC ABG pO2 Sodium 147 H Potassium Chloride 111.9 H Carbon Dioxide 16 L BUN 72 H Creatinine 5.1 H Glucose 181 H POC Glucose 180 H Lactic Acid Calcium 7.1 L Magnesium AST ALT Alkaline Phosphatase Troponin T C-Reactive Protein Total Protein Albumin LDL Cholesterol Direct HDL Cholesterol Hepatitis C Antibody Crossmatch 11/22/17 11/22/17 11/22/17 07:25 07:25 12:05 WBC 31.4 H RBC 3.22 L Hgb 8.0 L Hct 26.7 L MCV 83 L MCH 25 L MCHC 30 L RDW 19.4 H Plt Count 602 H Lymph % (Auto) [place] % (Auto) Lymph # [place] # Seg Neutrophils % Seg Neuts % (Manual) Lymphocytes % (Manual) Monocytes % (Manual) Nucleated RBC % Seg Neutrophils # Seg Neutrophils # Man Lymphocytes # (Manual) Monocytes # (Manual) PT INR POC ABG pH POC ABG pCO2 POC ABG pO2 Sodium Potassium Chloride Carbon Dioxide BUN Creatinine Glucose POC Glucose 182 H Lactic Acid 5.00 H* Calcium Magnesium AST ALT Alkaline Phosphatase Troponin T C-Reactive Protein Total Protein Albumin LDL Cholesterol Direct HDL Cholesterol Hepatitis C Antibody Crossmatch 11/22/17 11/23/17 11/23/17 19:45 01:28 04:56 WBC RBC Hgb Hct MCV MCH MCHC RDW Plt Count Lymph % (Auto) [place] % (Auto) Lymph # [place] # Seg Neutrophils % Seg Neuts % (Manual) Lymphocytes % (Manual) Monocytes % (Manual) Nucleated RBC % Seg Neutrophils # Seg Neutrophils # Man Lymphocytes # (Manual) Monocytes # (Manual) PT INR POC ABG pH 7.505 H POC ABG pCO2 26.3 L POC ABG pO2 Sodium Potassium Chloride Carbon Dioxide BUN Creatinine Glucose POC Glucose 165 H Lactic Acid Calcium Magnesium AST ALT Alkaline Phosphatase Troponin T C-Reactive Protein Total Protein Albumin LDL Cholesterol Direct HDL Cholesterol Hepatitis C Antibody Reactive A Crossmatch 11/23/17 11/23/17 11/23/17 07:05 12:32 17:53 WBC RBC Hgb Hct MCV MCH MCHC RDW Plt Count Lymph % (Auto) [place] % (Auto) Lymph # [place] # Seg Neutrophils % Seg Neuts % (Manual) Lymphocytes % (Manual) Monocytes % (Manual) Nucleated RBC % Seg Neutrophils # Seg Neutrophils # Man Lymphocytes # (Manual) Monocytes # (Manual) PT INR POC ABG pH POC ABG pCO2 POC ABG pO2 Sodium Potassium Chloride Carbon Dioxide 18 L BUN 61 H Creatinine 4.2 H Glucose 153 H POC Glucose 138 H 173 H Lactic Acid Calcium 7.5 L Magnesium AST ALT Alkaline Phosphatase Troponin T C-Reactive Protein Total Protein Albumin LDL Cholesterol Direct HDL Cholesterol Hepatitis C Antibody Crossmatch 11/23/17 11/24/17 11/24/17 23:41 05:42 05:42 WBC 21.5 H RBC 2.48 L Hgb 6.2 L Hct 20.3 L D MCV 82 L MCH 25 L MCHC 31 L RDW 18.9 H Plt Count Lymph % (Auto) [place] % (Auto) Lymph # [place] # Seg Neutrophils % Seg Neuts % (Manual) 94.0 H Lymphocytes % (Manual) 3.0 L Monocytes % (Manual) Nucleated RBC % Seg Neutrophils # Seg Neutrophils # Man 20.2 H Lymphocytes # (Manual) 0.6 L Monocytes # (Manual) PT INR POC ABG pH POC ABG pCO2 POC ABG pO2 Sodium 149 H Potassium 2.8 L* D Chloride 113.9 H Carbon Dioxide 19 L BUN 31 H Creatinine 2.3 H Glucose 103 H POC Glucose 133 H Lactic Acid Calcium 5.3 L* D Magnesium 1.30 L AST ALT Alkaline Phosphatase Troponin T C-Reactive Protein Total Protein Albumin LDL Cholesterol Direct HDL Cholesterol Hepatitis C Antibody Crossmatch 11/24/17 11/24/17 11/24/17 05:42 08:27 08:27 WBC RBC Hgb Hct MCV MCH MCHC RDW Plt Count Lymph % (Auto) [place] % (Auto) Lymph # [place] # Seg Neutrophils % Seg Neuts % (Manual) Lymphocytes % (Manual) Monocytes % (Manual) Nucleated RBC % Seg Neutrophils # Seg Neutrophils # Man Lymphocytes # (Manual) Monocytes # (Manual) PT INR POC ABG pH POC ABG pCO2 POC ABG pO2 Sodium Potassium Chloride Carbon Dioxide BUN Creatinine Glucose POC Glucose Lactic Acid 5.40 H* 5.20 H* Calcium Magnesium AST ALT Alkaline Phosphatase Troponin T C-Reactive Protein Total Protein Albumin LDL Cholesterol Direct HDL Cholesterol Hepatitis C Antibody Crossmatch See Detail 11/24/17 11/24/17 11/24/17 12:13 17:22 21:53 WBC 23.0 H RBC 3.32 L Hgb 8.8 L Hct 27.1 L D MCV 82 L MCH 26 L MCHC RDW 17.3 H Plt Count Lymph % (Auto) [place] % (Auto) Lymph # [place] # Seg Neutrophils % Seg Neuts % (Manual) Lymphocytes % (Manual) Monocytes % (Manual) Nucleated RBC % Seg Neutrophils # Seg Neutrophils # Man Lymphocytes # (Manual) Monocytes # (Manual) PT INR POC ABG pH POC ABG pCO2 POC ABG pO2 Sodium Potassium Chloride Carbon Dioxide BUN Creatinine Glucose POC Glucose 138 H 180 H Lactic Acid Calcium Magnesium AST ALT Alkaline Phosphatase Troponin T C-Reactive Protein Total Protein Albumin LDL Cholesterol Direct HDL Cholesterol Hepatitis C Antibody Crossmatch 11/24/17 11/24/17 11/25/17 21:53 23:28 04:19 WBC RBC Hgb Hct MCV MCH MCHC RDW Plt Count Lymph % (Auto) [place] % (Auto) Lymph # [place] # Seg Neutrophils % Seg Neuts % (Manual) Lymphocytes % (Manual) Monocytes % (Manual) Nucleated RBC % Seg Neutrophils # Seg Neutrophils # Man Lymphocytes # (Manual) Monocytes # (Manual) PT INR POC ABG pH POC ABG pCO2 POC ABG pO2 Sodium Potassium Chloride 96.3 L Carbon Dioxide BUN 28 H 31 H Creatinine 2.3 H 2.6 H Glucose 125 H 101 H POC Glucose 111 H Lactic Acid Calcium 7.5 L D 7.4 L Magnesium AST 170 H ALT 179 H Alkaline Phosphatase 175 H Troponin T C-Reactive Protein Total Protein 5.5 L Albumin 1.8 L LDL Cholesterol Direct HDL Cholesterol Hepatitis C Antibody Crossmatch 11/25/17 11/25/17 11/26/17 04:19 04:19 06:29 WBC 22.5 H RBC 3.48 L Hgb 9.1 L Hct 28.3 L MCV 81 L MCH 26 L MCHC RDW 17.4 H Plt Count Lymph % (Auto) [place] % (Auto) Lymph # [place] # Seg Neutrophils % Seg Neuts % (Manual) Lymphocytes % (Manual) Monocytes % (Manual) Nucleated RBC % Seg Neutrophils # Seg Neutrophils # Man Lymphocytes # (Manual) Monocytes # (Manual) PT 23.6 H INR 1.96 H POC ABG pH POC ABG pCO2 POC ABG pO2 Sodium Potassium Chloride Carbon Dioxide BUN 31 H Creatinine 2.6 H Glucose 101 H POC Glucose Lactic Acid Calcium 7.5 L Magnesium AST ALT Alkaline Phosphatase Troponin T C-Reactive Protein Total Protein Albumin LDL Cholesterol Direct HDL Cholesterol Hepatitis C Antibody Crossmatch 11/26/17 11/27/17 11/27/17 06:34 04:06 04:06 WBC 11.3 H RBC 3.13 L Hgb 8.4 L Hct 25.8 L MCV 82 L MCH 27 L MCHC RDW 17.7 H Plt Count Lymph % (Auto) 7.4 L [place] % (Auto) Lymph # 0.8 L [place] # Seg Neutrophils % 83.7 H Seg Neuts % (Manual) Lymphocytes % (Manual) Monocytes % (Manual) Nucleated RBC % Seg Neutrophils # 9.5 H Seg Neutrophils # Man Lymphocytes # (Manual) Monocytes # (Manual) PT INR POC ABG pH POC ABG pCO2 POC ABG pO2 Sodium Potassium Chloride 97.9 L Carbon Dioxide BUN 43 H 29 H Creatinine 3.5 H 2.9 H Glucose POC Glucose Lactic Acid Calcium 7.5 L 8.1 L Magnesium AST ALT Alkaline Phosphatase Troponin T C-Reactive Protein Total Protein Albumin LDL Cholesterol Direct HDL Cholesterol Hepatitis C Antibody Crossmatch 11/27/17 11/28/17 11/28/17 18:11 00:16 03:50 WBC RBC Hgb Hct MCV MCH MCHC RDW Plt Count Lymph % (Auto) [place] % (Auto) Lymph # [place] # Seg Neutrophils % Seg Neuts % (Manual) Lymphocytes % (Manual) Monocytes % (Manual) Nucleated RBC % Seg Neutrophils # Seg Neutrophils # Man Lymphocytes # (Manual) Monocytes # (Manual) PT INR POC ABG pH POC ABG pCO2 POC ABG pO2 Sodium Potassium Chloride Carbon Dioxide BUN 39 H Creatinine 4.1 H Glucose 108 H POC Glucose 110 H 124 H Lactic Acid Calcium 7.9 L Magnesium AST ALT Alkaline Phosphatase Troponin T C-Reactive Protein Total Protein Albumin LDL Cholesterol Direct HDL Cholesterol Hepatitis C Antibody Crossmatch 11/28/17 11/28/17 11/28/17 05:03 11:36 17:42 WBC RBC Hgb Hct MCV MCH MCHC RDW Plt Count Lymph % (Auto) [place] % (Auto) Lymph # [place] # Seg Neutrophils % Seg Neuts % (Manual) Lymphocytes % (Manual) Monocytes % (Manual) Nucleated RBC % Seg Neutrophils # Seg Neutrophils # Man Lymphocytes # (Manual) Monocytes # (Manual) PT INR POC ABG pH POC ABG pCO2 POC ABG pO2 Sodium Potassium Chloride Carbon Dioxide BUN Creatinine Glucose POC Glucose 134 H 114 H 119 H Lactic Acid Calcium Magnesium AST ALT Alkaline Phosphatase Troponin T C-Reactive Protein Total Protein Albumin LDL Cholesterol Direct HDL Cholesterol Hepatitis C Antibody Crossmatch 11/29/17 11/29/17 11/29/17 00:22 05:25 05:25 WBC 12.3 H RBC 3.34 L Hgb 8.6 L Hct 27.3 L MCV 82 L MCH 26 L MCHC RDW 18.5 H Plt Count Lymph % (Auto) 3.7 L [place] % (Auto) 7.7 H Lymph # 0.5 L [place] # 1.0 H Seg Neutrophils % 86.5 H Seg Neuts % (Manual) Lymphocytes % (Manual) Monocytes % (Manual) Nucleated RBC % Seg Neutrophils # 10.7 H Seg Neutrophils # Man Lymphocytes # (Manual) Monocytes # (Manual) PT INR POC ABG pH POC ABG pCO2 POC ABG pO2 Sodium Potassium Chloride Carbon Dioxide BUN 29 H Creatinine 3.5 H Glucose 109 H POC Glucose 137 H Lactic Acid Calcium 7.8 L Magnesium AST ALT Alkaline Phosphatase Troponin T C-Reactive Protein Total Protein Albumin LDL Cholesterol Direct HDL Cholesterol Hepatitis C Antibody Crossmatch 11/29/17 11/30/17 11/30/17 05:26 00:26 04:17 WBC RBC Hgb Hct MCV MCH MCHC RDW Plt Count Lymph % (Auto) [place] % (Auto) Lymph # [place] # Seg Neutrophils % Seg Neuts % (Manual) Lymphocytes % (Manual) Monocytes % (Manual) Nucleated RBC % Seg Neutrophils # Seg Neutrophils # Man Lymphocytes # (Manual) Monocytes # (Manual) PT INR POC ABG pH POC ABG pCO2 POC ABG pO2 Sodium Potassium Chloride Carbon Dioxide BUN 38 H Creatinine 4.3 H Glucose 109 H POC Glucose 129 H 152 H Lactic Acid Calcium 7.8 L Magnesium AST ALT Alkaline Phosphatase Troponin T C-Reactive Protein Total Protein Albumin LDL Cholesterol Direct HDL Cholesterol Hepatitis C Antibody Crossmatch 11/30/17 11/30/17 11/30/17 12:17 16:23 23:35 WBC RBC Hgb Hct MCV MCH MCHC RDW Plt Count Lymph % (Auto) [place] % (Auto) Lymph # [place] # Seg Neutrophils % Seg Neuts % (Manual) Lymphocytes % (Manual) Monocytes % (Manual) Nucleated RBC % Seg Neutrophils # Seg Neutrophils # Man Lymphocytes # (Manual) Monocytes # (Manual) PT INR POC ABG pH POC ABG pCO2 POC ABG pO2 Sodium Potassium Chloride Carbon Dioxide BUN Creatinine Glucose POC Glucose 170 H 114 H 122 H Lactic Acid Calcium Magnesium AST ALT Alkaline Phosphatase Troponin T C-Reactive Protein Total Protein Albumin LDL Cholesterol Direct HDL Cholesterol Hepatitis C Antibody Crossmatch 12/01/17 12/01/17 12/01/17 04:09 04:09 12:17 WBC 14.1 H RBC 3.32 L Hgb 8.6 L Hct 27.0 L MCV 81 L MCH 26 L MCHC RDW 18.7 H Plt Count Lymph % (Auto) 5.5 L [place] % (Auto) 9.7 H Lymph # 0.8 L [place] # 1.4 H Seg Neutrophils % 82.9 H Seg Neuts % (Manual) Lymphocytes % (Manual) Monocytes % (Manual) Nucleated RBC % Seg Neutrophils # 11.7 H Seg Neutrophils # Man Lymphocytes # (Manual) Monocytes # (Manual) PT INR POC ABG pH POC ABG pCO2 POC ABG pO2 Sodium Potassium 3.4 L Chloride Carbon Dioxide BUN 21 H Creatinine 3.0 H Glucose 108 H POC Glucose 126 H Lactic Acid Calcium 8.0 L Magnesium AST ALT Alkaline Phosphatase Troponin T C-Reactive Protein Total Protein Albumin LDL Cholesterol Direct HDL Cholesterol Hepatitis C Antibody Crossmatch 12/02/17 12/03/17 12/03/17 23:46 02:52 05:54 WBC 17.2 H RBC 3.21 L Hgb 8.5 L Hct 25.8 L MCV 80 L MCH 26 L MCHC RDW 18.4 H Plt Count 128 L Lymph % (Auto) [place] % (Auto) Lymph # [place] # Seg Neutrophils % Seg Neuts % (Manual) Lymphocytes % (Manual) Monocytes % (Manual) Nucleated RBC % Seg Neutrophils # Seg Neutrophils # Man Lymphocytes # (Manual) Monocytes # (Manual) PT INR POC ABG pH POC ABG pCO2 POC ABG pO2 Sodium Potassium Chloride Carbon Dioxide BUN Creatinine Glucose POC Glucose 125 H 107 H Lactic Acid Calcium Magnesium AST ALT Alkaline Phosphatase Troponin T C-Reactive Protein Total Protein Albumin LDL Cholesterol Direct HDL Cholesterol Hepatitis C Antibody Crossmatch 12/03/17 Unknown WBC RBC Hgb Hct MCV MCH MCHC RDW Plt Count Lymph % (Auto) [place] % (Auto) Lymph # [place] # Seg Neutrophils % Seg Neuts % (Manual) Lymphocytes % (Manual) Monocytes % (Manual) Nucleated RBC % Seg Neutrophils # Seg Neutrophils # Man Lymphocytes # (Manual) Monocytes # (Manual) PT INR POC ABG pH POC ABG pCO2 POC ABG pO2 Sodium Potassium Chloride Carbon Dioxide BUN 21 H Creatinine 2.8 H Glucose 113 H POC Glucose Lactic Acid Calcium Magnesium AST ALT Alkaline Phosphatase Troponin T C-Reactive Protein Total Protein Albumin LDL Cholesterol Direct HDL Cholesterol Hepatitis C Antibody Crossmatch
--- NOTE | 2017-12-03 11:40 | Post Anesthesia Evaluation ---
- Post Anesthesia Evaluation Patient Participated: Yes Airway Patent: Yes Stable Respiratory Function: Yes Nausea/Vomiting: No Temp > 96.8F: Yes Pain Manageable: Yes Adequeate Hydration: Yes Anesthesia Complications: No
--- NOTE | 2017-12-03 12:32 | Event Note ---
Date: 12/03/[address] Noble. Had washout. Pelvic collection and collection between pancreas and stomach were not amenable to drainage. Plan for CT scan tomorrow and drainage this upcoming week, probably on thursday.
[2017-12-03] MEDS: DIFLUCAN 200 MG/100 ML BAG IV SCH (12:53)
--- NOTE | 2017-12-03 13:22 | Operative Report ---
PREOPERATIVE DIAGNOSIS: Multiple loculated abscesses in the intra-abdominal cavity. POSTOPERATIVE DIAGNOSIS: Multiple loculated abscesses in the intra-abdominal cavity. PROCEDURE: 1. Diagnostic laparoscopy. 2. Partial washout of abdomen. ATTENDING PHYSICIAN: Howard Noble MD ANESTHESIA: General. ESTIMATED BLOOD LOSS: Less than 50 mL. FLUIDS: 700 mL. FINDINGS: Multiple loculated pockets of inflammatory fluid and fibrinous exudate. Dense adhesions were noted throughout the abdomen, very difficult to tell inflammatory rind from bowel wall. SPECIMENS: Culture swabs were taken. DRAINS: An additional 19-Emirati round fully fluted drain was left in the center and left upper quadrant area. COMPLICATIONS: None. DISPOSITION: Stable, transferred to ICU. INDICATIONS: This is a 67-year-old male who presumably had a dislodged PEG tube about 3 weeks ago. He was found to have multiple fluid collections. Initial attempt was made at IR drainage of some of the larger collections; however, he recently has been noted to have a rising white count. CT showed multiple fluid collections with 2 dominant areas in the left upper quadrant and pelvic areas. Our plan was to see if possible if a washout could be done surgically, knowing that there may be a fair amount of adhesions and inflammatory changes; however, we felt it was worth trying as the patient would do better if we could do a thorough washout. Procedure, risks, benefits were explained to daughter. Risks included but were not limited to infection, bleeding, pain, injury to surrounding structures, possible need for open surgery, possible need for further procedures in the future. Daughter understood and consented. OPERATIVE NOTE: The patient was brought to the operating room and placed in supine position. After adequate general anesthesia was established, the patient was prepped and draped in usual sterile fashion. Timeout was performed. Based on the CT scan that I reviewed again right before the case, it was clear there was a fluid collection underneath the umbilicus. My plan all along was used to use an open technique to enter the abdominal cavity and he had a small umbilical hernia, so I thought I would enter here first as this would be a natural site to enter and we could fix the hernia defect on our way out, also it would be relatively safe to enter here as we would be entering into an abscess cavity which we need to drain anyway. Infraumbilical incision was marked out. Local anesthetic was administered. Sharp incision was made and dissection was carried down to the fascial defect. Defect was opened. We entered the fluid collection. Small amount of aspiration was done. I checked with a finger to make sure there were no adjacent areas of bowel that were densely adhered. There were none. We inserted a Alexis port and insufflated the abdomen. Camera was inserted. We entered the abscess pocket as planned. In order to create some working space, I gently aspirated the area blindly, inserting it only a small amount and then aspirated. Once we had enough space, I inserted a 5 mm port under direct vision on the left side of the abdomen. Using that, we suctioned out a large amount of fibrinous exudate and inflammatory fluid, some of which was purulent in appearance. Cultures had been taken. We continued to gently increase the working space by gently it, knowing that there could be adjacent bowel there. It was very difficult to tell what was what, everything had the appearance of an inflammatory wall, difficult to differentiate rind from bowel. Therefore, we carefully proceeded. We were able to enter another cavity in the left upper quadrant; however, we were not able to get to the large collection in the lesser sac. On the CT, it was clear that we would have to go above the colon in order to get to that spot. The colon was between the camera and the fluid collection. To go under the colon, would destroy the mesocolon. We tried to go above; however, again we could not define the planes easily and I did not want to risk a bowel injury. After trying this for quite a while, we abandoned it. I did consider on a few separate occasions whether it would be worthwhile to do an open procedure. My concern was that this would be, #1, quite a large stress to the patient; #2, due to the dense inflammatory reaction that we did anticipate would be there, I was concerned about the high risk for bowel injury and subsequent fistula formation. Ultimately I decided it would be best to clean out as much as I could safely and then whatever was left, which ended up being the large fluid collection adjacent to the stomach and the pelvic collection, has had to be best to have IR place additional drains. We should save the open surgery as a last resort due to the high risk of bowel injury and subsequent fistula formation. I do not think he would do well if he developed a fistula. I think that would cause severe compromise to his health. Continuing on, I was able to enter the fluid cavity on the right side of the abdomen where there was already a previous drain placed. We could see the drain very clearly, this was the lower drain. We could not get to the location where the upper drain was. That area was thoroughly washed out. It seemed to be fairly well cleaned out from the drain that had been previously placed by IR. I then tried to go inferiorly towards the pelvis. We made a small amount of progress, but did not feel as though we entered that cavity. It seemed as though I hit a very firm rind and I did not want to take a chance on inadvertently getting into bowel as I could not tell what was what. Therefore, we stopped at this point. It did not appear as though we had caused any injury. There was no obvious bowel injury that I could tell. I saw no intestinal contents anywhere. I felt what we had done, we had done safely, and there was no obvious injury. We made one final check to make sure there was no injury or any significant bleeding and there was none. I placed a 19-Emirati round fully fluted drain through the left abdominal port and tried to feed it up into that separate cavity in the left upper quadrant and have the rest of it in the mid section where we had originally entered. Please note, I did place another 5 mm port in the superior portion of the cavity that we had initially entered. This was done early in the case, so that we could better evaluate as we went down towards the pelvis. The second 5 mm port was removed. Alexis trocar was removed out. Abdomen was desufflated. #0 Vicryl stitch was used to close the fascia at the umbilicus. Wounds were thoroughly irrigated. Due to the high risk of infection, I closed the 2 incisions with kamar, so that we could easily remove them if needed if patient developed a skin infection, which he is at high risk for from the intra-abdominal infection. Skin was clean and dried, dressings were placed. The drainage bags were reattached to the catheters. The patient tolerated procedure well. I spoke with Dr. Stephens after the case, we discussed the plan. He understood what our findings were and we will speak with Interventional about placing 2 more drains. I tried to call the daughter, Jannette, but was unable to reach her. A message was left. JOB# [id number] EMI/RENETTA
--- NOTE | 2017-12-03 15:20 | Progress Note ---
Assessment and Plan Peritonitis from dislodged peg tube -Status post drainage placement by IR and removed PEG tube on 11/22 -peritoneal Fluid positive for Enterobacter, Heather (non albicans) -Antibiotic managed by ID -Pelvic collection and collection between pancreas and stomach were not amenable to drainage. - Plan for repeat CT scan tomorrow and drainage this upcoming week, probably on Thursday Acute on chronic respiratory failure with hypoxia - likely due to aspiratin and PNA -Status post tracheostomy, currently on T-piece -Pulmonology following Severe sepsis with shock likely secondary to aspiration pneumonia -Off IV pressors -Blood and sputum cultures negative Aspiration pneumonia with mucus plugging -treated with zosyn Acute kidney injury secondary to ATN -on Intermittent HD started on 11/23/17 -Creatinine level improved -Nephrology following Anemia of acute loss secondary to gastric ulcer and gastritis -Status post EGD on 11/18/2017 -Status post blood transfusion -H/H stable, will monitor Acute encephalopathy, likely multifactorial -Will continue to monitor clinically -Prognosis is poor Hypernatremia -Resolved Hypokalemia -We will monitor level and replete as needed Hypomagnesemia -Resolved status post repletion Oropharyngeal dysphagia -Status post PEG tube placement on 11/06, now removed -On tube feeding with dobhoff History of recent CVA -Not on aspirin due to recent bleed RT ICA stenosis -s/p recent endarterectomy Disposition: Patient overall prognosis remains poor. Continue management Brief History 67yo M with history CVA, a PEG tube placed by GI on 11/06 presented (11/12) from rehab for respiratory failure, sepsis, hypotension and multilober PNA. Recent work-up for hypotension showed a dislodged PEG tube on CT scan with extraluminal PO contrast that was limited to the upper abdomen and left gutter. Pt had an EGD on 11/18 that did not show the PEG button or an obvious hole in the stomach. There was no free air noted on CXR's. Pt had IR guided drainage placed in the 3 different locations of abdomen. He is now s/p trach by ENT. Now being evaluated by surgery as Nurse reported leakage around his percutaneous drain on the left side. Hospitalist Physical General appearance: Present: no acute distress - EENT Eyes: Present: PERRL ENT: clear oral mucosa - Neck Neck: Present: supple, other (status post tracheostomy on T-piece) - Respiratory Respiratory effort: normal Respiratory: bilateral: CTA - Cardiovascular Rhythm: other (tachycardia) Heart Sounds: Present: S1 & S2 - Extremities Extremity abnormal: edema (in BLE) - Abdominal General gastrointestinal: non-distended, distended, normal bowel sounds, other ( firm on palpation) - Neurologic Neurologic: other (patient is awake but unable to follow commands) Subjective Date of service: 12/03/17 Principal diagnosis: Acute hypoxic respiratory failure due to Pneumonia on MV> 96 hours s/p Trach Interval history: Pt seen and examined, nonverbal No acute event reported by RN Objective - Constitutional Vitals: Vital Signs - 12hr 12/03/17 12/03/17 12/03/17 04:00 05:00 06:00 Temperature 99.0 F Pulse Rate 97 H 107 H 91 H Pulse Rate [ 105 H Right From Monitor] Respiratory 32 H 34 H 25 H Rate Blood Pressure 115/65 145/87 159/89 O2 Sat by Pulse 100 100 100 Oximetry O2 Sat by Pulse Oximetry [ Assessment] 12/03/17 12/03/17 12/03/17 07:00 08:00 10:17 Temperature 97.9 F 97.4 F L Pulse Rate 108 H 93 H Pulse Rate [ Right From Monitor] Respiratory 26 H 28 H 25 H Rate Blood Pressure 120/73 113/75 O2 Sat by Pulse 97 100 100 Oximetry O2 Sat by Pulse 100 Oximetry [ Assessment] 12/03/17 12/03/17 12/03/17 10:27 10:30 11:00 Temperature Pulse Rate 96 H 96 H Pulse Rate [ Right From Monitor] Respiratory 19 26 H 25 H Rate Blood Pressure 129/78 117/73 O2 Sat by Pulse 100 100 Oximetry O2 Sat by Pulse Oximetry [ Assessment] 12/03/17 12:00 Temperature 97.5 F L Pulse Rate 99 H Pulse Rate [ Right From Monitor] Respiratory 22 Rate Blood Pressure 118/71 O2 Sat by Pulse 100 Oximetry O2 Sat by Pulse Oximetry [ Assessment] - Labs CBC & Chem 7: 12/03/17 02:52 12/03/17 Unknown Labs: Abnormal lab results 12/02/17 12/03/17 12/03/17 Range/Units 23:46 02:52 05:54 WBC 17.2 H (4.5-11.0) K/mm3 RBC 3.21 L (3.65-5.03) M/mm3 Hgb 8.5 L (11.8-15.2) gm/dl Hct 25.8 L (35.5-45.6) % MCV 80 L (84-94) fl MCH 26 L (28-32) pg RDW 18.4 H (13.2-15.2) % Plt Count 128 L (140-440) K/mm3 BUN (9-20) mg/dL Creatinine (0.8-1.5) mg/dL Glucose (75-100) mg/dL POC Glucose 125 H 107 H (70-105) 12/03/17 12/03/17 Range/Units 12:05 Unknown WBC (4.5-11.0) K/mm3 RBC (3.65-5.03) M/mm3 Hgb (11.8-15.2) gm/dl Hct (35.5-45.6) % MCV (84-94) fl MCH (28-32) pg RDW (13.2-15.2) % Plt Count (140-440) K/mm3 BUN 21 H (9-20) mg/dL Creatinine 2.8 H (0.8-1.5) mg/dL Glucose 113 H (75-100) mg/dL POC Glucose 106 H (70-105)
--- NOTE | 2017-12-04 08:08 | Progress Note ---
Assessment and Plan Assessment: 1) Sepsis with transient septic shock: fever resolved, leukocytosis up after OR . Etiology most likely PEG-associated intra-abdominal collection. CRP=25 2) VAP vs post-obstructive pneumonia (mucous mugging) -initial sputum 10/10 Klebsiella -sputum 11/12 usual respiratory estela -CXR showed increased perihilar alveolar density >RLL than LLL. -CTA showed complete atelectasis of the LLL with mediatinal shift to the left due to blockage of the left main bronchus by ETT. -repeat CT showed Loculated fluid collections noted along the bilateral paracolic gutters measuring approximately 4 x 8 cm in cross-sectional diameter and 13 cm in length on the right and 3.5 x 7 cm in cross-sectional diameter and 21 cm in length on the left, neither of which are in significant contiguity with catheters. Smaller, similar appearing fluid loculations in the mid and lower central mesentery both anterior and centrally, largest in the left paramedian supraumbilical region anteriorly measuring approximately 10 x 3 cm in cross-sectional diameter. Largest collection in the pelvis measures 11 x 13 cm in cross-sectional diameter and 2.5 cm in craniocaudal dimension. 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, placement of recent PEG tube with prolonged recent admission from 10/04-/11/10/17 4) Acute encephalopathy 5) Acute Respiratory failure 6) DARYA - on Intermittent HD started on 11/23/17 7) Hypernatremia 8) PEG-associated loculated intraabdominal collection s/p IR drainage 11/26 MDR Enterobacter and Heather non albicnas s/p OR lap partial wash out 12/03 Plan: -f/u OR wash out cultures -continue cefepime -continue fluconazole -duration cefepime 2 g IV q 24h and fluconazole probably 21 days (if he goes on HD will do gentamicin IV on HD and fluconazole PO) I am rounding on 12/07, call me with questions Thank you for your consultation, will follow up with you. Olga Mercedes MD Infectious Diseases Specialist [facility] M [phone] O [phone] Subjective Date of service: 12/04/17 Principal diagnosis: Acute hypoxic respiratory failure due to Pneumonia on MV> 96 hours s/p Trach Interval history: Patient remains on the vent currently on T piece. No fever. Went to the OR yesterday. Microbiology: Blood cultures: 10/24 [employer] 10/29 neg 11/10 neg 11/12 ngtd Urine cultures: Respiratory cultures: 10/10 Klebsiella 11/12 usual resp estela Peritonial cultures: 12/03 ngtd IR drainage 11/26 MDR Enterobacter and Heather not albicans Current Antimicrobials: cefepime 12/02 fluconazole 11/29 Previous Antimicrobials: LevaquinZosyn 11/13 meropenem Objective - Exam Narrative Exam: General appearance: alert on t-piece Eyes: anicteric sclerae, moist conjunctivae; no lid-lag; PERRLA HENT: Atraumatic; oropharynx+ETT +OGT Neck: Trachea midline; supple, no thyromegaly or lymphadenopathy Lungs: scattered rhonchi CV: rrr Abdomen: Soft, distended +PEG +3 drains with minimal purulence Extremities: winnie arms/legs edema Skin: Normal temperature, turgor and texture; no rash, ulcers or subcutaneous nodules Psych: sedated Neuro: sedated Lines: condom cath - Constitutional Vitals: Vital Signs Temp Pulse Resp BP Pulse Ox 99.4 F 105 H 36 H 162/91 100 12/04/17 04:00 12/04/17 06:00 12/04/17 06:00 12/04/17 06:00 12/04/17 06:00 Temperature -Last 24 Hours Temperature 99.4 F Temperature 98.6 F Temperature 98.1 F Temperature 98.2 F Temperature 97.5 F Temperature 97.4 F - Labs CBC & Chem 7: 12/03/17 02:52 12/03/17 Unknown Labs: Abnormal lab results 12/03/17 Range/Units 12:05 POC Glucose 106 H (70-105)
--- NOTE | 2017-12-04 08:21 | Event Note ---
Date: 12/04/17 Called by ICU last night to speak with Daughter of patient. Spent about 20-30 minutes on the phone with daughter. She feels that her father is not getting the appropriate care and request transfer to [facility]. I attempted to explain to her over the phone the transfer process. Given what I know about her fathers medical condition, I am not sure there is a level of care that [facility] that is offered that we are not doing here. I explained to the daughter that if she wishes to have her father transfered that we have no objection in doing so but she would have to find a physician there who is willing to accept her father in transfer. Meaning that the physician at [facility] essentially initiates the transfer. I will discuss the case with Surgery, as his biggest issue currently is peritonitis and multiple fluid pockets in his abdomen that require drainage. He is a high risk surgical candidate given his other comorbid diseases and I think that all disciplines would agree that this is the best approach to his care. If the the other consultants feel that there is something else that can be done for this patient that we do not offer, I have no problem with contacting the ICU at [facility] and requesting a transfer for a higher level of care. After speaking with the daughter last night, she spoke as if she understood this but I still do not believe that she is content with the care. I will also alert risk management about this as well.
[2017-12-04] MEDS ORDERED: NACL 0.9% 100 ML IV PRN (09:01)
[2017-12-04] MEDS: PROTONIX (nf) FEEDTUBE SCH ×2 (09:23→21:57)
[2017-12-04] MEDS: DIFLUCAN 200 MG/100 ML BAG IV SCH (09:23)
[2017-12-04] MEDS: LOPRESSOR PO SCH ×2 (09:23→21:57)
--- NOTE | 2017-12-04 09:29 | Progress Note ---
Assessment and Plan 67 y/o male with acute on chronic respiratory failure, now trached, with peritonitis from dislodged peg tube s/p 2 IR drains now with NGT feedings. 1. Trach Care 2. Repeat CT today of abdomen pelvis for IR to evaluate fluid pockets. 3. IV abx 4. PT/OT 5. Continue T-piece 6. Will transition out of ICU today. Remains sick but clinically stable not requiring ICU level of care. Will discuss with primary team. Subjective Date of service: 12/04/17 Principal diagnosis: Acute hypoxic respiratory failure due to Pneumonia on MV> 96 hours s/p Trach Interval history: Please see my event note about discussion with daughter last night. Clinically stable. Remains on T-piece. IR has placed order for repeat CT today. No family currently present at bedside. Remainder is negative. ID has seen this am already. Objective Vital Signs - 12hr 12/03/17 12/03/17 12/03/17 22:00 22:05 23:00 Temperature Pulse Rate 109 H 109 H 113 H Respiratory 33 H 33 H Rate Blood Pressure 146/84 164/92 151/84 O2 Sat by Pulse 98 96 Oximetry O2 Sat by Pulse Oximetry [ Assessment] 12/03/17 12/04/17 12/04/17 23:34 00:00 01:00 Temperature 98.6 F Pulse Rate 108 H 106 H Respiratory 34 H 33 H Rate Blood Pressure 139/78 127/79 O2 Sat by Pulse 96 100 Oximetry O2 Sat by Pulse 100 Oximetry [ Assessment] 12/04/17 12/04/17 12/04/17 02:00 03:00 04:00 Temperature 99.4 F Pulse Rate 112 H 108 H 87 Respiratory 34 H 22 30 H Rate Blood Pressure 161/93 156/93 124/70 O2 Sat by Pulse 99 100 96 Oximetry O2 Sat by Pulse Oximetry [ Assessment] 12/04/17 12/04/17 12/04/17 05:00 06:00 09:15 Temperature Pulse Rate 105 H 105 H Respiratory 27 H 36 H Rate Blood Pressure 156/92 162/91 O2 Sat by Pulse 100 100 100 Oximetry O2 Sat by Pulse Oximetry [ Assessment] 12/04/17 09:16 Temperature Pulse Rate Respiratory Rate Blood Pressure O2 Sat by Pulse Oximetry O2 Sat by Pulse 100 Oximetry [ Assessment] Constitutional: other (s/p trach, awake) Eyes: non-icteric ENT: oropharynx moist Neck: supple (Number 8 perc trach, midline and stable) Effort: normal Ascultation: Bilateral: clear, rhonchi (sporadic), other (coarse BS bilaterally) Cardiovascular: regular rate and rhythm (no mrg) Gastrointestinal: normoactive bowel sounds, soft, non-tender, other (distended but better after drainage) Integumentary: normal Extremities: no cyanosis, pink and warm, anasarca Neurologic: other (L hemiparesis) Psychiatric: other (unable to assess) CBC and BMP: 12/03/17 02:52 12/03/17 Unknown ABG, PT/INR, D-dimer: ABG POC ABG pH 7.505 (7.35-7.45) H 11/23/17 04:56 POC ABG pCO2 26.3 (35-45) L 11/23/17 04:56 POC ABG pO2 100 (80-105) 11/23/17 04:56 POC ABG HCO3 20.8 11/23/17 04:56 POC ABG Total CO2 22 11/23/17 04:56 POC ABG O2 Sat 98 11/23/17 04:56 PT/INR, D-dimer PT 23.6 Sec. (12.2-14.9) H 11/26/17 06:29 INR 1.96 (0.87-1.13) H 11/26/17 06:29 Abnormal lab findings: Abnormal Labs 11/11/17 11/11/17 11/11/17 23:18 23:20 23:20 WBC RBC Hgb 10.4 L Hct 32.6 L D MCV MCH 27 L MCHC RDW 17.4 H Plt Count 105 L Lymph % (Auto) Hunt % (Auto) Lymph # Hunt # Seg Neutrophils % Seg Neuts % (Manual) Lymphocytes % (Manual) 8.0 L Monocytes % (Manual) Nucleated RBC % 1.0 H Seg Neutrophils # Seg Neutrophils # Man Lymphocytes # (Manual) 0.7 L Monocytes # (Manual) PT INR POC ABG pH 7.550 H POC ABG pCO2 31.6 L POC ABG pO2 Sodium 146 H Potassium Chloride Carbon Dioxide BUN 26 H Creatinine 1.7 H D Glucose 133 H POC Glucose Lactic Acid Calcium Magnesium AST ALT Alkaline Phosphatase Troponin T 0.117 H* C-Reactive Protein Total Protein Albumin 2.5 L LDL Cholesterol Direct 42 L HDL Cholesterol 24 L Hepatitis C Antibody Crossmatch 11/11/17 11/12/17 11/12/17 23:20 00:23 00:23 WBC RBC Hgb Hct MCV MCH MCHC RDW Plt Count Lymph % (Auto) Hunt % (Auto) Lymph # Hunt # Seg Neutrophils % Seg Neuts % (Manual) Lymphocytes % (Manual) Monocytes % (Manual) Nucleated RBC % Seg Neutrophils # Seg Neutrophils # Man Lymphocytes # (Manual) Monocytes # (Manual) PT 16.7 H INR 1.28 H POC ABG pH POC ABG pCO2 POC ABG pO2 Sodium Potassium Chloride Carbon Dioxide BUN Creatinine Glucose POC Glucose Lactic Acid 3.20 H* Calcium Magnesium AST ALT Alkaline Phosphatase Troponin T C-Reactive Protein 25.70 H Total Protein Albumin LDL Cholesterol Direct HDL Cholesterol Hepatitis C Antibody Crossmatch 11/12/17 11/12/17 11/12/17 00:46 01:27 01:27 WBC RBC Hgb Hct MCV MCH MCHC RDW Plt Count Lymph % (Auto) Hunt % (Auto) Lymph # Hunt # Seg Neutrophils % Seg Neuts % (Manual) Lymphocytes % (Manual) Monocytes % (Manual) Nucleated RBC % Seg Neutrophils # Seg Neutrophils # Man Lymphocytes # (Manual) Monocytes # (Manual) PT INR POC ABG pH 7.495 H POC ABG pCO2 32.0 L POC ABG pO2 64 L Sodium Potassium Chloride Carbon Dioxide BUN Creatinine Glucose POC Glucose Lactic Acid 3.70 H* Calcium Magnesium AST ALT Alkaline Phosphatase Troponin T 0.096 H C-Reactive Protein Total Protein Albumin LDL Cholesterol Direct HDL Cholesterol Hepatitis C Antibody Crossmatch 11/12/17 11/12/17 11/12/17 03:21 04:50 06:27 WBC RBC Hgb Hct MCV MCH MCHC RDW Plt Count Lymph % (Auto) Hunt % (Auto) Lymph # Hunt # Seg Neutrophils % Seg Neuts % (Manual) Lymphocytes % (Manual) Monocytes % (Manual) Nucleated RBC % Seg Neutrophils # Seg Neutrophils # Man Lymphocytes # (Manual) Monocytes # (Manual) PT INR POC ABG pH POC ABG pCO2 POC ABG pO2 109 H Sodium Potassium Chloride Carbon Dioxide BUN Creatinine Glucose POC Glucose Lactic Acid 3.80 H* 2.20 H* Calcium Magnesium AST ALT Alkaline Phosphatase Troponin T C-Reactive Protein Total Protein Albumin LDL Cholesterol Direct HDL Cholesterol Hepatitis C Antibody Crossmatch 0811/12/17 11/12/17 09:24 09:24 09:24 WBC RBC Hgb 10.4 L Hct 33.4 L MCV MCH MCHC RDW Plt Count Lymph % (Auto) Hunt % (Auto) Lymph # Hunt # Seg Neutrophils % Seg Neuts % (Manual) Lymphocytes % (Manual) Monocytes % (Manual) Nucleated RBC % Seg Neutrophils # Seg Neutrophils # Man Lymphocytes # (Manual) Monocytes # (Manual) PT INR POC ABG pH POC ABG pCO2 POC ABG pO2 Sodium Potassium Chloride Carbon Dioxide BUN Creatinine Glucose POC Glucose Lactic Acid 2.90 H* Calcium Magnesium AST ALT Alkaline Phosphatase Troponin T 0.091 H C-Reactive Protein Total Protein Albumin LDL Cholesterol Direct HDL Cholesterol Hepatitis C Antibody Crossmatch 11/12/17 11/12/17 11/12/17 12:56 20:03 Unknown WBC RBC Hgb Hct MCV MCH MCHC RDW Plt Count Lymph % (Auto) Hunt % (Auto) Lymph # Hunt # Seg Neutrophils % Seg Neuts % (Manual) Lymphocytes % (Manual) Monocytes % (Manual) Nucleated RBC % Seg Neutrophils # Seg Neutrophils # Man Lymphocytes # (Manual) Monocytes # (Manual) PT INR POC ABG pH POC ABG pCO2 POC ABG pO2 Sodium Potassium Chloride Carbon Dioxide BUN Creatinine Glucose POC Glucose Lactic Acid 3.60 H* Calcium Magnesium AST ALT Alkaline Phosphatase Troponin T 0.102 H* 0.156 H* D C-Reactive Protein Total Protein Albumin LDL Cholesterol Direct HDL Cholesterol Hepatitis C Antibody Crossmatch 11/12/17 11/13/17 11/13/17 Unknown 04:50 04:50 WBC 12.2 H RBC 3.51 L Hgb 9.3 L Hct 30.1 L MCV MCH 26 L MCHC 31 L RDW 18.0 H Plt Count 128 L Lymph % (Auto) 8.6 L Hunt % (Auto) 11.1 H Lymph # 1.1 L Hunt # 1.4 H Seg Neutrophils % 80.1 H Seg Neuts % (Manual) Lymphocytes % (Manual) Monocytes % (Manual) Nucleated RBC % Seg Neutrophils # 9.8 H Seg Neutrophils # Man Lymphocytes # (Manual) Monocytes # (Manual) PT INR POC ABG pH POC ABG pCO2 POC ABG pO2 Sodium 149 H Potassium 5.1 H Chloride 114.4 H Carbon Dioxide 18 L BUN 52 H Creatinine 3.3 H D Glucose 129 H POC Glucose Lactic Acid Calcium 7.9 L Magnesium AST ALT Alkaline Phosphatase Troponin T 0.098 H C-Reactive Protein Total Protein Albumin LDL Cholesterol Direct HDL Cholesterol Hepatitis C Antibody Crossmatch 11/13/17 11/13/17 11/14/17 04:51 09:34 04:21 WBC RBC Hgb Hct MCV MCH MCHC RDW Plt Count Lymph % (Auto) Hunt % (Auto) Lymph # Hunt # Seg Neutrophils % Seg Neuts % (Manual) Lymphocytes % (Manual) Monocytes % (Manual) Nucleated RBC % Seg Neutrophils # Seg Neutrophils # Man Lymphocytes # (Manual) Monocytes # (Manual) PT INR POC ABG pH POC ABG pCO2 30.1 L 29.8 L POC ABG pO2 135 H Sodium Potassium Chloride Carbon Dioxide BUN Creatinine Glucose POC Glucose Lactic Acid 2.10 H* Calcium Magnesium AST ALT Alkaline Phosphatase Troponin T C-Reactive Protein Total Protein Albumin LDL Cholesterol Direct HDL Cholesterol Hepatitis C Antibody Crossmatch 11/15/17 11/15/17 11/16/17 04:52 15:50 05:17 WBC RBC Hgb Hct MCV MCH MCHC RDW Plt Count Lymph % (Auto) Hunt % (Auto) Lymph # Hunt # Seg Neutrophils % Seg Neuts % (Manual) Lymphocytes % (Manual) Monocytes % (Manual) Nucleated RBC % Seg Neutrophils # Seg Neutrophils # Man Lymphocytes # (Manual) Monocytes # (Manual) PT INR POC ABG pH POC ABG pCO2 29.5 L 31.5 L POC ABG pO2 115 H 122 H Sodium 154 H Potassium Chloride 117.9 H Carbon Dioxide 19 L BUN 87 H Creatinine 4.1 H Glucose POC Glucose Lactic Acid Calcium 8.1 L Magnesium AST ALT Alkaline Phosphatase Troponin T C-Reactive Protein Total Protein Albumin LDL Cholesterol Direct HDL Cholesterol Hepatitis C Antibody Crossmatch 11/16/17 11/17/17 11/17/17 16:37 04:07 10:00 WBC 14.7 H RBC 3.23 L Hgb 8.3 L Hct 28.1 L MCV MCH 26 L MCHC 30 L RDW 18.8 H Plt Count Lymph % (Auto) Hunt % (Auto) Lymph # Hunt # Seg Neutrophils % Seg Neuts % (Manual) 75 H Lymphocytes % (Manual) 8.0 L Monocytes % (Manual) Nucleated RBC % 1.0 H Seg Neutrophils # Seg Neutrophils # Man 11.0 H Lymphocytes # (Manual) Monocytes # (Manual) 0.9 H PT INR POC ABG pH POC ABG pCO2 POC ABG pO2 Sodium 153 H 155 H Potassium Chloride 117.3 H 119.4 H Carbon Dioxide 19 L 20 L BUN 90 H 89 H Creatinine 3.9 H 3.6 H Glucose 111 H 115 H POC Glucose Lactic Acid Calcium 8.1 L 8.0 L Magnesium AST ALT Alkaline Phosphatase Troponin T C-Reactive Protein Total Protein Albumin LDL Cholesterol Direct HDL Cholesterol Hepatitis C Antibody Crossmatch 11/18/17 11/18/17 11/18/17 04:34 04:34 04:34 WBC 15.5 H RBC 3.13 L Hgb 8.1 L Hct 26.3 L MCV MCH 26 L MCHC 31 L RDW 18.6 H Plt Count Lymph % (Auto) Hunt % (Auto) Lymph # Hunt # Seg Neutrophils % Seg Neuts % (Manual) 81.0 H Lymphocytes % (Manual) 7.0 L Monocytes % (Manual) Nucleated RBC % 1.0 H Seg Neutrophils # Seg Neutrophils # Man 12.6 H Lymphocytes # (Manual) 1.1 L Monocytes # (Manual) PT 16.7 H INR 1.30 H POC ABG pH POC ABG pCO2 POC ABG pO2 Sodium 155 H Potassium 3.2 L Chloride 121.0 H Carbon Dioxide 20 L BUN 74 H Creatinine 2.9 H Glucose 126 H POC Glucose Lactic Acid Calcium 7.9 L Magnesium AST ALT Alkaline Phosphatase Troponin T C-Reactive Protein Total Protein Albumin LDL Cholesterol Direct HDL Cholesterol Hepatitis C Antibody Crossmatch 11/19/17 11/19/17 11/20/17 04:44 04:44 00:38 WBC 19.0 H 22.2 H RBC 3.20 L 3.17 L Hgb 8.4 L 7.9 L Hct 27.9 L 26.4 L MCV 83 L MCH 26 L 25 L MCHC 30 L 30 L RDW 19.1 H 18.9 H Plt Count Lymph % (Auto) Hunt % (Auto) Lymph # Hunt # Seg Neutrophils % Seg Neuts % (Manual) 83.0 H Lymphocytes % (Manual) 3.0 L Monocytes % (Manual) 9.0 H Nucleated RBC % Seg Neutrophils # Seg Neutrophils # Man 18.4 H Lymphocytes # (Manual) 0.7 L Monocytes # (Manual) 2.0 H PT INR POC ABG pH POC ABG pCO2 POC ABG pO2 Sodium 152 H Potassium Chloride 117.1 H Carbon Dioxide 17 L BUN 66 H Creatinine 2.8 H Glucose 119 H POC Glucose Lactic Acid Calcium 7.8 L Magnesium 2.70 H AST ALT Alkaline Phosphatase Troponin T C-Reactive Protein Total Protein Albumin LDL Cholesterol Direct HDL Cholesterol Hepatitis C Antibody Crossmatch 11/20/17 11/20/17 11/20/17 03:29 04:48 13:38 WBC RBC Hgb Hct MCV MCH MCHC RDW Plt Count Lymph % (Auto) Hunt % (Auto) Lymph # Hunt # Seg Neutrophils % Seg Neuts % (Manual) Lymphocytes % (Manual) Monocytes % (Manual) Nucleated RBC % Seg Neutrophils # Seg Neutrophils # Man Lymphocytes # (Manual) Monocytes # (Manual) PT INR POC ABG pH POC ABG pCO2 29.4 L POC ABG pO2 Sodium 148 H Potassium 3.4 L Chloride 113.7 H Carbon Dioxide 18 L BUN 59 H Creatinine 2.7 H Glucose 113 H POC Glucose 128 H Lactic Acid Calcium 7.8 L Magnesium AST ALT Alkaline Phosphatase Troponin T C-Reactive Protein Total Protein Albumin LDL Cholesterol Direct HDL Cholesterol Hepatitis C Antibody Crossmatch 11/20/17 11/20/17 11/21/17 17:38 23:40 00:13 WBC RBC Hgb 8.4 L Hct 28.0 L MCV MCH MCHC RDW Plt Count Lymph % (Auto) Hunt % (Auto) Lymph # Hunt # Seg Neutrophils % Seg Neuts % (Manual) Lymphocytes % (Manual) Monocytes % (Manual) Nucleated RBC % Seg Neutrophils # Seg Neutrophils # Man Lymphocytes # (Manual) Monocytes # (Manual) PT INR POC ABG pH POC ABG pCO2 POC ABG pO2 Sodium Potassium Chloride Carbon Dioxide BUN Creatinine Glucose POC Glucose 115 H 145 H Lactic Acid Calcium Magnesium AST ALT Alkaline Phosphatase Troponin T C-Reactive Protein Total Protein Albumin LDL Cholesterol Direct HDL Cholesterol Hepatitis C Antibody Crossmatch 11/21/17 11/21/17 11/21/17 04:30 04:30 04:58 WBC 21.0 H RBC Hgb 9.6 L Hct 32.7 L MCV MCH 25 L MCHC 29 L RDW 19.7 H Plt Count 746 H Lymph % (Auto) Hunt % (Auto) Lymph # Hunt # Seg Neutrophils % Seg Neuts % (Manual) Lymphocytes % (Manual) Monocytes % (Manual) Nucleated RBC % Seg Neutrophils # Seg Neutrophils # Man Lymphocytes # (Manual) Monocytes # (Manual) PT INR POC ABG pH POC ABG pCO2 POC ABG pO2 Sodium Potassium Chloride 109.4 H Carbon Dioxide 14 L BUN 59 H Creatinine 3.0 H Glucose 137 H POC Glucose 132 H Lactic Acid Calcium 7.6 L Magnesium AST ALT Alkaline Phosphatase Troponin T C-Reactive Protein Total Protein Albumin LDL Cholesterol Direct HDL Cholesterol Hepatitis C Antibody Crossmatch 11/21/17 11/21/17 11/21/17 06:30 13:43 14:17 WBC 38.2 H RBC Hgb 9.0 L Hct 32.3 L MCV MCH 25 L MCHC 28 L RDW 20.0 H Plt Count 766 H Lymph % (Auto) Hunt % (Auto) Lymph # Hunt # Seg Neutrophils % Seg Neuts % (Manual) 85.0 H Lymphocytes % (Manual) 1.0 L Monocytes % (Manual) Nucleated RBC % 2.0 H Seg Neutrophils # Seg Neutrophils # Man 32.5 H Lymphocytes # (Manual) 0.4 L Monocytes # (Manual) 2.3 H PT INR POC ABG pH POC ABG pCO2 18.6 L POC ABG pO2 121 H Sodium 146 H Potassium Chloride 110.9 H Carbon Dioxide 11 L BUN 62 H Creatinine 4.0 H Glucose 64 L POC Glucose Lactic Acid Calcium 7.6 L Magnesium AST ALT Alkaline Phosphatase Troponin T C-Reactive Protein Total Protein Albumin LDL Cholesterol Direct HDL Cholesterol Hepatitis C Antibody Crossmatch 11/21/17 11/21/17 11/22/17 14:17 19:09 00:05 WBC RBC Hgb Hct MCV MCH MCHC RDW Plt Count Lymph % (Auto) Hunt % (Auto) Lymph # Hunt # Seg Neutrophils % Seg Neuts % (Manual) Lymphocytes % (Manual) Monocytes % (Manual) Nucleated RBC % Seg Neutrophils # Seg Neutrophils # Man Lymphocytes # (Manual) Monocytes # (Manual) PT INR POC ABG pH POC ABG pCO2 20.0 L POC ABG pO2 Sodium Potassium Chloride Carbon Dioxide BUN Creatinine Glucose POC Glucose 127 H Lactic Acid 7.70 H* Calcium Magnesium AST ALT Alkaline Phosphatase Troponin T C-Reactive Protein Total Protein Albumin LDL Cholesterol Direct HDL Cholesterol Hepatitis C Antibody Crossmatch 11/22/17 11/22/17 11/22/17 03:53 06:00 07:25 WBC RBC Hgb Hct MCV MCH MCHC RDW Plt Count Lymph % (Auto) Hunt % (Auto) Lymph # Hunt # Seg Neutrophils % Seg Neuts % (Manual) Lymphocytes % (Manual) Monocytes % (Manual) Nucleated RBC % Seg Neutrophils # Seg Neutrophils # Man Lymphocytes # (Manual) Monocytes # (Manual) PT INR POC ABG pH POC ABG pCO2 22.2 L POC ABG pO2 Sodium 147 H Potassium Chloride 111.9 H Carbon Dioxide 16 L BUN 72 H Creatinine 5.1 H Glucose 181 H POC Glucose 180 H Lactic Acid Calcium 7.1 L Magnesium AST ALT Alkaline Phosphatase Troponin T C-Reactive Protein Total Protein Albumin LDL Cholesterol Direct HDL Cholesterol Hepatitis C Antibody Crossmatch 11/22/17 11/22/17 11/22/17 07:25 07:25 12:05 WBC 31.4 H RBC 3.22 L Hgb 8.0 L Hct 26.7 L MCV 83 L MCH 25 L MCHC 30 L RDW 19.4 H Plt Count 602 H Lymph % (Auto) Hunt % (Auto) Lymph # Hunt # Seg Neutrophils % Seg Neuts % (Manual) Lymphocytes % (Manual) Monocytes % (Manual) Nucleated RBC % Seg Neutrophils # Seg Neutrophils # Man Lymphocytes # (Manual) Monocytes # (Manual) PT INR POC ABG pH POC ABG pCO2 POC ABG pO2 Sodium Potassium Chloride Carbon Dioxide BUN Creatinine Glucose POC Glucose 182 H Lactic Acid 5.00 H* Calcium Magnesium AST ALT Alkaline Phosphatase Troponin T C-Reactive Protein Total Protein Albumin LDL Cholesterol Direct HDL Cholesterol Hepatitis C Antibody Crossmatch 11/22/17 11/23/17 11/23/17 19:45 01:28 04:56 WBC RBC Hgb Hct MCV MCH MCHC RDW Plt Count Lymph % (Auto) Hunt % (Auto) Lymph # Hunt # Seg Neutrophils % Seg Neuts % (Manual) Lymphocytes % (Manual) Monocytes % (Manual) Nucleated RBC % Seg Neutrophils # Seg Neutrophils # Man Lymphocytes # (Manual) Monocytes # (Manual) PT INR POC ABG pH 7.505 H POC ABG pCO2 26.3 L POC ABG pO2 Sodium Potassium Chloride Carbon Dioxide BUN Creatinine Glucose POC Glucose 165 H Lactic Acid Calcium Magnesium AST ALT Alkaline Phosphatase Troponin T C-Reactive Protein Total Protein Albumin LDL Cholesterol Direct HDL Cholesterol Hepatitis C Antibody Reactive A Crossmatch 11/23/17 11/23/17 11/23/17 07:05 12:32 17:53 WBC RBC Hgb Hct MCV MCH MCHC RDW Plt Count Lymph % (Auto) Hunt % (Auto) Lymph # Hunt # Seg Neutrophils % Seg Neuts % (Manual) Lymphocytes % (Manual) Monocytes % (Manual) Nucleated RBC % Seg Neutrophils # Seg Neutrophils # Man Lymphocytes # (Manual) Monocytes # (Manual) PT INR POC ABG pH POC ABG pCO2 POC ABG pO2 Sodium Potassium Chloride Carbon Dioxide 18 L BUN 61 H Creatinine 4.2 H Glucose 153 H POC Glucose 138 H 173 H Lactic Acid Calcium 7.5 L Magnesium AST ALT Alkaline Phosphatase Troponin T C-Reactive Protein Total Protein Albumin LDL Cholesterol Direct HDL Cholesterol Hepatitis C Antibody Crossmatch 11/23/17 11/24/17 11/24/17 23:41 05:42 05:42 WBC 21.5 H RBC 2.48 L Hgb 6.2 L Hct 20.3 L D MCV 82 L MCH 25 L MCHC 31 L RDW 18.9 H Plt Count Lymph % (Auto) Hunt % (Auto) Lymph # Hunt # Seg Neutrophils % Seg Neuts % (Manual) 94.0 H Lymphocytes % (Manual) 3.0 L Monocytes % (Manual) Nucleated RBC % Seg Neutrophils # Seg Neutrophils # Man 20.2 H Lymphocytes # (Manual) 0.6 L Monocytes # (Manual) PT INR POC ABG pH POC ABG pCO2 POC ABG pO2 Sodium 149 H Potassium 2.8 L* D Chloride 113.9 H Carbon Dioxide 19 L BUN 31 H Creatinine 2.3 H Glucose 103 H POC Glucose 133 H Lactic Acid Calcium 5.3 L* D Magnesium 1.30 L AST ALT Alkaline Phosphatase Troponin T C-Reactive Protein Total Protein Albumin LDL Cholesterol Direct HDL Cholesterol Hepatitis C Antibody Crossmatch 11/24/17 11/24/17 11/24/17 05:42 08:27 08:27 WBC RBC Hgb Hct MCV MCH MCHC RDW Plt Count Lymph % (Auto) Hunt % (Auto) Lymph # Hunt # Seg Neutrophils % Seg Neuts % (Manual) Lymphocytes % (Manual) Monocytes % (Manual) Nucleated RBC % Seg Neutrophils # Seg Neutrophils # Man Lymphocytes # (Manual) Monocytes # (Manual) PT INR POC ABG pH POC ABG pCO2 POC ABG pO2 Sodium Potassium Chloride Carbon Dioxide BUN Creatinine Glucose POC Glucose Lactic Acid 5.40 H* 5.20 H* Calcium Magnesium AST ALT Alkaline Phosphatase Troponin T C-Reactive Protein Total Protein Albumin LDL Cholesterol Direct HDL Cholesterol Hepatitis C Antibody Crossmatch See Detail 11/24/17 11/24/17 11/24/17 12:13 17:22 21:53 WBC 23.0 H RBC 3.32 L Hgb 8.8 L Hct 27.1 L D MCV 82 L MCH 26 L MCHC RDW 17.3 H Plt Count Lymph % (Auto) Hunt % (Auto) Lymph # Hunt # Seg Neutrophils % Seg Neuts % (Manual) Lymphocytes % (Manual) Monocytes % (Manual) Nucleated RBC % Seg Neutrophils # Seg Neutrophils # Man Lymphocytes # (Manual) Monocytes # (Manual) PT INR POC ABG pH POC ABG pCO2 POC ABG pO2 Sodium Potassium Chloride Carbon Dioxide BUN Creatinine Glucose POC Glucose 138 H 180 H Lactic Acid Calcium Magnesium AST ALT Alkaline Phosphatase Troponin T C-Reactive Protein Total Protein Albumin LDL Cholesterol Direct HDL Cholesterol Hepatitis C Antibody Crossmatch 11/24/17 11/24/17 11/25/17 21:53 23:28 04:19 WBC RBC Hgb Hct MCV MCH MCHC RDW Plt Count Lymph % (Auto) Hunt % (Auto) Lymph # Hunt # Seg Neutrophils % Seg Neuts % (Manual) Lymphocytes % (Manual) Monocytes % (Manual) Nucleated RBC % Seg Neutrophils # Seg Neutrophils # Man Lymphocytes # (Manual) Monocytes # (Manual) PT INR POC ABG pH POC ABG pCO2 POC ABG pO2 Sodium Potassium Chloride 96.3 L Carbon Dioxide BUN 28 H 31 H Creatinine 2.3 H 2.6 H Glucose 125 H 101 H POC Glucose 111 H Lactic Acid Calcium 7.5 L D 7.4 L Magnesium AST 170 H ALT 179 H Alkaline Phosphatase 175 H Troponin T C-Reactive Protein Total Protein 5.5 L Albumin 1.8 L LDL Cholesterol Direct HDL Cholesterol Hepatitis C Antibody Crossmatch 11/25/17 11/25/17 11/26/17 04:19 04:19 06:29 WBC 22.5 H RBC 3.48 L Hgb 9.1 L Hct 28.3 L MCV 81 L MCH 26 L MCHC RDW 17.4 H Plt Count Lymph % (Auto) Hunt % (Auto) Lymph # Hunt # Seg Neutrophils % Seg Neuts % (Manual) Lymphocytes % (Manual) Monocytes % (Manual) Nucleated RBC % Seg Neutrophils # Seg Neutrophils # Man Lymphocytes # (Manual) Monocytes # (Manual) PT 23.6 H INR 1.96 H POC ABG pH POC ABG pCO2 POC ABG pO2 Sodium Potassium Chloride Carbon Dioxide BUN 31 H Creatinine 2.6 H Glucose 101 H POC Glucose Lactic Acid Calcium 7.5 L Magnesium AST ALT Alkaline Phosphatase Troponin T C-Reactive Protein Total Protein Albumin LDL Cholesterol Direct HDL Cholesterol Hepatitis C Antibody Crossmatch 11/26/17 11/27/17 11/27/17 06:34 04:06 04:06 WBC 11.3 H RBC 3.13 L Hgb 8.4 L Hct 25.8 L MCV 82 L MCH 27 L MCHC RDW 17.7 H Plt Count Lymph % (Auto) 7.4 L Hunt % (Auto) Lymph # 0.8 L Hunt # Seg Neutrophils % 83.7 H Seg Neuts % (Manual) Lymphocytes % (Manual) Monocytes % (Manual) Nucleated RBC % Seg Neutrophils # 9.5 H Seg Neutrophils # Man Lymphocytes # (Manual) Monocytes # (Manual) PT INR POC ABG pH POC ABG pCO2 POC ABG pO2 Sodium Potassium Chloride 97.9 L Carbon Dioxide BUN 43 H 29 H Creatinine 3.5 H 2.9 H Glucose POC Glucose Lactic Acid Calcium 7.5 L 8.1 L Magnesium AST ALT Alkaline Phosphatase Troponin T C-Reactive Protein Total Protein Albumin LDL Cholesterol Direct HDL Cholesterol Hepatitis C Antibody Crossmatch 11/27/17 11/28/17 11/28/17 18:11 00:16 03:50 WBC RBC Hgb Hct MCV MCH MCHC RDW Plt Count Lymph % (Auto) Hunt % (Auto) Lymph # Hunt # Seg Neutrophils % Seg Neuts % (Manual) Lymphocytes % (Manual) Monocytes % (Manual) Nucleated RBC % Seg Neutrophils # Seg Neutrophils # Man Lymphocytes # (Manual) Monocytes # (Manual) PT INR POC ABG pH POC ABG pCO2 POC ABG pO2 Sodium Potassium Chloride Carbon Dioxide BUN 39 H Creatinine 4.1 H Glucose 108 H POC Glucose 110 H 124 H Lactic Acid Calcium 7.9 L Magnesium AST ALT Alkaline Phosphatase Troponin T C-Reactive Protein Total Protein Albumin LDL Cholesterol Direct HDL Cholesterol Hepatitis C Antibody Crossmatch 11/28/17 11/28/17 11/28/17 05:03 11:36 17:42 WBC RBC Hgb Hct MCV MCH MCHC RDW Plt Count Lymph % (Auto) Hunt % (Auto) Lymph # Hunt # Seg Neutrophils % Seg Neuts % (Manual) Lymphocytes % (Manual) Monocytes % (Manual) Nucleated RBC % Seg Neutrophils # Seg Neutrophils # Man Lymphocytes # (Manual) Monocytes # (Manual) PT INR POC ABG pH POC ABG pCO2 POC ABG pO2 Sodium Potassium Chloride Carbon Dioxide BUN Creatinine Glucose POC Glucose 134 H 114 H 119 H Lactic Acid Calcium Magnesium AST ALT Alkaline Phosphatase Troponin T C-Reactive Protein Total Protein Albumin LDL Cholesterol Direct HDL Cholesterol Hepatitis C Antibody Crossmatch 11/29/17 11/29/17 11/29/17 00:22 05:25 05:25 WBC 12.3 H RBC 3.34 L Hgb 8.6 L Hct 27.3 L MCV 82 L MCH 26 L MCHC RDW 18.5 H Plt Count Lymph % (Auto) 3.7 L Hunt % (Auto) 7.7 H Lymph # 0.5 L Hunt # 1.0 H Seg Neutrophils % 86.5 H Seg Neuts % (Manual) Lymphocytes % (Manual) Monocytes % (Manual) Nucleated RBC % Seg Neutrophils # 10.7 H Seg Neutrophils # Man Lymphocytes # (Manual) Monocytes # (Manual) PT INR POC ABG pH POC ABG pCO2 POC ABG pO2 Sodium Potassium Chloride Carbon Dioxide BUN 29 H Creatinine 3.5 H Glucose 109 H POC Glucose 137 H Lactic Acid Calcium 7.8 L Magnesium AST ALT Alkaline Phosphatase Troponin T C-Reactive Protein Total Protein Albumin LDL Cholesterol Direct HDL Cholesterol Hepatitis C Antibody Crossmatch 11/29/17 11/30/17 11/30/17 05:26 00:26 04:17 WBC RBC Hgb Hct MCV MCH MCHC RDW Plt Count Lymph % (Auto) Hunt % (Auto) Lymph # Hunt # Seg Neutrophils % Seg Neuts % (Manual) Lymphocytes % (Manual) Monocytes % (Manual) Nucleated RBC % Seg Neutrophils # Seg Neutrophils # Man Lymphocytes # (Manual) Monocytes # (Manual) PT INR POC ABG pH POC ABG pCO2 POC ABG pO2 Sodium Potassium Chloride Carbon Dioxide BUN 38 H Creatinine 4.3 H Glucose 109 H POC Glucose 129 H 152 H Lactic Acid Calcium 7.8 L Magnesium AST ALT Alkaline Phosphatase Troponin T C-Reactive Protein Total Protein Albumin LDL Cholesterol Direct HDL Cholesterol Hepatitis C Antibody Crossmatch 11/30/17 11/30/17 11/30/17 12:17 16:23 23:35 WBC RBC Hgb Hct MCV MCH MCHC RDW Plt Count Lymph % (Auto) Hunt % (Auto) Lymph # Hunt # Seg Neutrophils % Seg Neuts % (Manual) Lymphocytes % (Manual) Monocytes % (Manual) Nucleated RBC % Seg Neutrophils # Seg Neutrophils # Man Lymphocytes # (Manual) Monocytes # (Manual) PT INR POC ABG pH POC ABG pCO2 POC ABG pO2 Sodium Potassium Chloride Carbon Dioxide BUN Creatinine Glucose POC Glucose 170 H 114 H 122 H Lactic Acid Calcium Magnesium AST ALT Alkaline Phosphatase Troponin T C-Reactive Protein Total Protein Albumin LDL Cholesterol Direct HDL Cholesterol Hepatitis C Antibody Crossmatch 12/01/17 12/01/17 12/01/17 04:09 04:09 12:17 WBC 14.1 H RBC 3.32 L Hgb 8.6 L Hct 27.0 L MCV 81 L MCH 26 L MCHC RDW 18.7 H Plt Count Lymph % (Auto) 5.5 L Hunt % (Auto) 9.7 H Lymph # 0.8 L Hunt # 1.4 H Seg Neutrophils % 82.9 H Seg Neuts % (Manual) Lymphocytes % (Manual) Monocytes % (Manual) Nucleated RBC % Seg Neutrophils # 11.7 H Seg Neutrophils # Man Lymphocytes # (Manual) Monocytes # (Manual) PT INR POC ABG pH POC ABG pCO2 POC ABG pO2 Sodium Potassium 3.4 L Chloride Carbon Dioxide BUN 21 H Creatinine 3.0 H Glucose 108 H POC Glucose 126 H Lactic Acid Calcium 8.0 L Magnesium AST ALT Alkaline Phosphatase Troponin T C-Reactive Protein Total Protein Albumin LDL Cholesterol Direct HDL Cholesterol Hepatitis C Antibody Crossmatch 12/02/17 12/03/17 12/03/17 23:46 02:52 05:54 WBC 17.2 H RBC 3.21 L Hgb 8.5 L Hct 25.8 L MCV 80 L MCH 26 L MCHC RDW 18.4 H Plt Count 128 L Lymph % (Auto) Hunt % (Auto) Lymph # Hunt # Seg Neutrophils % Seg Neuts % (Manual) Lymphocytes % (Manual) Monocytes % (Manual) Nucleated RBC % Seg Neutrophils # Seg Neutrophils # Man Lymphocytes # (Manual) Monocytes # (Manual) PT INR POC ABG pH POC ABG pCO2 POC ABG pO2 Sodium Potassium Chloride Carbon Dioxide BUN Creatinine Glucose POC Glucose 125 H 107 H Lactic Acid Calcium Magnesium AST ALT Alkaline Phosphatase Troponin T C-Reactive Protein Total Protein Albumin LDL Cholesterol Direct HDL Cholesterol Hepatitis C Antibody Crossmatch 12/03/17 12/03/17 12:05 Unknown WBC RBC Hgb Hct MCV MCH MCHC RDW Plt Count Lymph % (Auto) Hunt % (Auto) Lymph # Hunt # Seg Neutrophils % Seg Neuts % (Manual) Lymphocytes % (Manual) Monocytes % (Manual) Nucleated RBC % Seg Neutrophils # Seg Neutrophils # Man Lymphocytes # (Manual) Monocytes # (Manual) PT INR POC ABG pH POC ABG pCO2 POC ABG pO2 Sodium Potassium Chloride Carbon Dioxide BUN 21 H Creatinine 2.8 H Glucose 113 H POC Glucose 106 H Lactic Acid Calcium Magnesium AST ALT Alkaline Phosphatase Troponin T C-Reactive Protein Total Protein Albumin LDL Cholesterol Direct HDL Cholesterol Hepatitis C Antibody Crossmatch
--- NOTE | 2017-12-04 13:43 | Progress Note ---
Assessment and Plan - Patient Problems (1) Gastrostomy malfunction Current Visit: Yes Status: Acute Plan to address problem: Pt is stable. After reviewing the records, discussing the case with multiple attendings, and seeing the patient, it is clear that we do not have an acute perforation. Most likely, the PEG tube started to migrate out of position prior to 11/18 as evidenced by no PEG button seen on EGD and no obvious hole in the stomach. As the contrast is restricted to certain areas in the abdomen, the fluid is loculated. The "ascites" may be tube feeds and/or reactionary fluid. Regardless, patient is not showing signs of obvious peritonitis. In this case, it may be prudent to try placing a few drains in the abdomen to remove that largest collections. I have already discussed this case with Dr. Moreira who agreed to review the case and see if that was possible. The alternative would be to take the patient for an ex-lap and washout the abdomen. I'm concerned that there may be a lot of inflammatory changes in the abdomen which would put him at risk for bowel injuries from the procedure. Therefore, this will be our back-up plan if the drains do not resolve the problem. As for nutritional access , for now, I would recommend an NGT. I doubt he has an active leak, so there is no need to test the stomach prior to using it. I have explained this plan in detail to the daughter (Jannette) and the attendings from ICU, GI, and hospitalist service. All were in agreement. - 11/25/17 Initial Consult Pt appears stable. s/p dx lap and washout - 12/03 POD#1. Discussed case with Drs. Stephens and Spencer. Plan is to get another CT of abd/pel with IV contrast to plan for new drain placement in LUQ and pelvic areas. The abdomen is frozen and doing a full laparotomy would put the patient at high risk for bowel injury and fistula formation. We should reserve this option as a last resort. Please call with questions. Time=10min Subjective Date of service: 12/04/17 Patient Reports: Positive: other (no new events.) Objective Vital Signs - 12hr 12/04/17 12/04/17 12/04/17 02:00 03:00 04:00 Temperature 99.4 F Pulse Rate 112 H 108 H 87 Respiratory 34 H 22 30 H Rate Blood Pressure 161/93 156/93 124/70 O2 Sat by Pulse 99 100 96 Oximetry O2 Sat by Pulse Oximetry [ Assessment] 12/04/17 12/04/17 12/04/17 05:00 06:00 07:00 Temperature Pulse Rate 105 H 105 H 95 H Respiratory 27 H 36 H 34 H Rate Blood Pressure 156/92 162/91 132/79 O2 Sat by Pulse 100 100 100 Oximetry O2 Sat by Pulse Oximetry [ Assessment] 12/04/17 12/04/17 12/04/17 08:00 09:00 09:15 Temperature 99.7 F H Pulse Rate 111 H 99 H Respiratory 37 H 34 H Rate Blood Pressure 168/92 134/71 O2 Sat by Pulse 97 100 100 Oximetry O2 Sat by Pulse Oximetry [ Assessment] 12/04/17 12/04/17 12/04/17 09:16 09:23 10:00 Temperature Pulse Rate 112 H 97 H Respiratory 33 H Rate Blood Pressure 151/88 154/85 O2 Sat by Pulse 100 Oximetry O2 Sat by Pulse 100 Oximetry [ Assessment] 12/04/17 12/04/17 12/04/17 11:00 12:00 13:00 Temperature 99.5 F Pulse Rate 103 H 95 H 106 H Respiratory 35 H 36 H 24 Rate Blood Pressure 164/92 142/79 152/92 O2 Sat by Pulse 100 97 100 Oximetry O2 Sat by Pulse Oximetry [ Assessment] - General physical appearance no distress, no pain, other (not interactive) - Abdomen soft, not tender, distended (less so), surgical scars (dressings with minimal serosang drainage. ), other (drains in place. less purulent appearing fluid in LUQ drain. Serosang drainage in surgical drain.) - Labs 12/03/17 02:52 12/03/17 Unknown
--- NOTE | 2017-12-04 14:26 | Progress Note ---
Assessment and Plan Assessment * Acute kidney injury secondary to ATN --Intermittent HD started on 11/23/17 * Sepsis secondary to peritonitis/PEG malpositioning --RUQ/LUQ drains: Enterobacter, Heather (non albicans) * Aspiration pneumonitis related to above * Anemia * Acute CVA * Carotid artery disease s/p CEA * Encephalopathy Plan: * No evidence of renal recovery * Continue HD MWF. UF as tolerated * Abx per ID * IR and surgery notes reviewed * Strict I/O * Avoid potential nephrptoxins * Dose medications for renal function * Replete lytes prn * Avoid nephrotoxins Subjective Date of service: 12/04/17 Principal diagnosis: Acute hypoxic respiratory failure due to Pneumonia on MV> 96 hours s/p Trach Interval history: new consult noted, last seen 11/09 with normal renal function Objective - Exam Narrative Exam: Constitutional: lethargic, other (intubated) Eyes: non-icteric ENT: oropharynx moist, other (ETT at 24 cm) Neck: supple, no JVD Ascultation: Bilateral: rhonchi (bilateral LT >>RT) Cardiovascular: regular rate and rhythm, other (tachycardic) Gastrointestinal: normoactive bowel sounds, non-distended Integumentary: normal Extremities: no cyanosis, no edema, other (RT femoral line in place) Neurologic: unable to assess (opens eyes spontaneously but does not follow commands . ) - Vital Signs Vital signs: Vital Signs - 12hr 12/04/17 12/04/17 12/04/17 03:00 04:00 05:00 Temperature 99.4 F Pulse Rate 108 H 87 105 H Pulse Rate [ Right From Monitor] Respiratory 22 30 H 27 H Rate Blood Pressure 156/93 124/70 156/92 O2 Sat by Pulse 100 96 100 Oximetry O2 Sat by Pulse Oximetry [ Assessment] 12/04/17 12/04/17 12/04/17 06:00 07:00 08:00 Temperature 99.7 F H Pulse Rate 105 H 95 H 111 H Pulse Rate [ 111 H Right From Monitor] Respiratory 36 H 34 H 37 H Rate Blood Pressure 162/91 132/79 168/92 O2 Sat by Pulse 100 100 97 Oximetry O2 Sat by Pulse Oximetry [ Assessment] 12/04/17 12/04/17 12/04/17 09:00 09:15 09:16 Temperature Pulse Rate 99 H Pulse Rate [ Right From Monitor] Respiratory 34 H Rate Blood Pressure 134/71 O2 Sat by Pulse 100 100 Oximetry O2 Sat by Pulse 100 Oximetry [ Assessment] 12/04/17 12/04/17 12/04/17 09:23 10:00 11:00 Temperature Pulse Rate 112 H 97 H 103 H Pulse Rate [ Right From Monitor] Respiratory 33 H 35 H Rate Blood Pressure 151/88 154/85 164/92 O2 Sat by Pulse 100 100 Oximetry O2 Sat by Pulse Oximetry [ Assessment] 12/04/17 12/04/17 12:00 13:00 Temperature 99.5 F Pulse Rate 95 H 106 H Pulse Rate [ 95 H Right From Monitor] Respiratory 36 H 24 Rate Blood Pressure 142/79 152/92 O2 Sat by Pulse 97 100 Oximetry O2 Sat by Pulse Oximetry [ Assessment] - Lab 12/03/17 02:52 12/03/17 Unknown Most recent lab results Calcium 8.4 mg/dL (8.4-10.2) 12/03/17 Unknown Magnesium 2.00 mg/dL (1.7-2.3) 11/24/17 21:53
[2017-12-04] MEDS: PROCRIT IV PRN (17:04)
--- NOTE | 2017-12-04 17:13 | Cat Scan Report ---
FINAL REPORT EXAM: CT ABDOMEN PELVIS W CON HISTORY: assess residual fluid collections COMPARISON: CT of the abdomen and pelvis performed on 12/01/2017 TECHNIQUE: Multiple contiguous axial images were obtained from the lung bases to the pubic symphysis after administration of IV contrast. Reformatted sagittal and coronal images were available for review. FINDINGS: Lung bases: Again seen are bilateral pleural effusions with associated atelectasis. Visualized heart and mediastinum: Normal. Liver: Normal. Spleen: Normal. Pancreas: Normal. Gallbladder and Biliary Tree: No calcified gallstones. No biliary ductal dilatation. Adrenal glands: Normal. Kidneys: Symmetric enhancement to both kidneys. No hydronephrosis. 2.4 centimeter simple appearing cyst in the interpolar region of the left kidney. Bladder: Normal. Pelvic organs: Unchanged mild enlargement of the prostate gland. Bowel: Again seen is intermittent nonspecific wall thickening of the bowel. No evidence of obstruction. There is some enteric contrast within the lumen of the descending and sigmoid colon. Peritoneum: Again seen is a pigtail catheter with tip in the right upper quadrant anterior to the liver. There is a left-sided approach midline pigtail catheter with its tip in the mid abdomen. There is a left approach lower catheter with tip in the lower midline. There is a lower right anterior pigtail catheter with its tip in the right lower quadrant within a large fluid collection. Again seen is a large fluid collection in the gastrosplenic area that measures approximately 14 x 7.7 x 9 centimeter, similar in appearance to the previous study. Again seen are large fluid collections in the bilateral paracolic gutters, measuring 9 x 3.2 x 14 centimeters on the right and 6.8 x 3.9 by 20 centimeters on the left, similar in appearance to the previous study. Again seen is a large fluid collection in the pelvis that measures approximately 10 x 14 centimeters in cross-sectional dimension. There also unchanged perisplenic and perihepatic fluid. The previously described left paramedian collection is no longer visualized. Vasculature: Abdominal aorta is normal in caliber without evidence of aneurysm. Scattered atherosclerotic calcifications. Bones and soft tissues: No suspicious osseous lesions.No acute fracture or dislocation. Postsurgical changes of the anterior abdominal wall. Foci of subcutaneous emphysema along the right anterolateral wall. IMPRESSION: Again seen are loculated fluid collections in the bilateral pericolic gutters, pelvis, and gastrosplenic area, with rim enhancement, concerning for abscesses. These fluid collections are overall similar in appearance to the previous study. The previously seen left paramedian collection in the upper abdomen is no longer appreciated. Unchanged appearance of the bowel that may represent post inflammatory change or enteritis, of infectious, inflammatory, or ischemic etiology. Small bilateral pleural effusions with associated atelectasis.
--- NOTE | 2017-12-04 17:19 | Progress Note ---
Assessment and Plan Peritonitis from dislodged peg tube -Status post drainage placement by IR and removed PEG tube on 11/22 -peritoneal Fluid positive for Enterobacter, Heather (non albicans) -Antibiotic managed by ID -s/p multiple intraabdominal drainages placed by IR and GS. also had abdominal washout by GS -Repeat CT scan today showed persistent abdominal collection of abscess/fluid and plan for repeat drainage this upcoming week, probably on Thursday Acute on chronic respiratory failure with hypoxia - likely due to aspiratin and PNA -Status post tracheostomy, currently on T-piece -Pulmonology following Severe sepsis with shock likely secondary to aspiration pneumonia -Off IV pressors -Blood and sputum cultures negative Aspiration pneumonia with mucus plugging -treated with zosyn Acute kidney injury secondary to ATN -on Intermittent HD started on 11/23/17 -Creatinine level improved -Nephrology following Anemia of acute loss secondary to gastric ulcer and gastritis -Status post EGD on 11/18/2017 -Status post blood transfusion -H/H stable, will monitor Acute encephalopathy, likely multifactorial -Will continue to monitor clinically -Prognosis is poor Hypernatremia -Resolved Hypokalemia -We will monitor level and replete as needed Hypomagnesemia -Resolved status post repletion Oropharyngeal dysphagia -Status post PEG tube placement on 11/06, now removed -On tube feeding with dobhoff History of recent CVA -Not on aspirin due to recent bleed RT ICA stenosis -s/p recent endarterectomy Disposition: Patient overall prognosis remains poor. Continue management Brief History 67yo M with history CVA, a PEG tube placed by GI on 11/06 presented (11/12) from rehab for respiratory failure, sepsis, hypotension and multilober PNA. Recent work-up for hypotension showed a dislodged PEG tube on CT scan with extraluminal PO contrast that was limited to the upper abdomen and left gutter. Pt had an EGD on 11/18 that did not show the PEG button or an obvious hole in the stomach. There was no free air noted on CXR's. Pt had IR guided drainage placed in the 3 different locations of abdomen. He is now s/p trach by ENT. Ct abdoemn/pelvis showed persistent abdominal collection of abscess/fluid and plan for repeat drainage this upcoming week, probably on Thursday Hospitalist Physical General appearance: Present: no acute distress - EENT Eyes: Present: PERRL ENT: clear oral mucosa - Neck Neck: Present: supple, other (status post tracheostomy on T-piece) - Respiratory Respiratory effort: normal Respiratory: bilateral: CTA - Cardiovascular Rhythm: other (tachycardia) Heart Sounds: Present: S1 & S2 - Extremities Extremity abnormal: edema (in BLE) - Abdominal General gastrointestinal: non-distended, distended, normal bowel sounds, other ( firm on palpation), total [address] - Neurologic Neurologic: other (patient is awake but unable to follow commands) Subjective Date of service: 12/04/17 Principal diagnosis: Acute hypoxic respiratory failure due to Pneumonia on MV> 96 hours s/p Trach Interval history: Pt seen and examined, nonverbal No acute event reported by RN Objective - Constitutional Vitals: Vital Signs - 12hr 12/04/17 12/04/17 12/04/17 06:00 07:00 08:00 Temperature 99.7 F H Pulse Rate 105 H 95 H 111 H Pulse Rate [ 111 H Right From Monitor] Respiratory 36 H 34 H 37 H Rate Blood Pressure 162/91 132/79 168/92 O2 Sat by Pulse 100 100 97 Oximetry O2 Sat by Pulse Oximetry [ Assessment] 12/04/17 12/04/17 12/04/17 09:00 09:15 09:16 Temperature Pulse Rate 99 H Pulse Rate [ Right From Monitor] Respiratory 34 H Rate Blood Pressure 134/71 O2 Sat by Pulse 100 100 Oximetry O2 Sat by Pulse 100 Oximetry [ Assessment] 12/04/17 12/04/17 12/04/17 09:23 10:00 11:00 Temperature Pulse Rate 112 H 97 H 103 H Pulse Rate [ Right From Monitor] Respiratory 33 H 35 H Rate Blood Pressure 151/88 154/85 164/92 O2 Sat by Pulse 100 100 Oximetry O2 Sat by Pulse Oximetry [ Assessment] 12/04/17 12/04/17 12/04/17 12:00 13:00 14:00 Temperature 99.5 F Pulse Rate 95 H 106 H 103 H Pulse Rate [ 95 H Right From Monitor] Respiratory 36 H 24 35 H Rate Blood Pressure 142/79 152/92 159/93 O2 Sat by Pulse 97 100 100 Oximetry O2 Sat by Pulse Oximetry [ Assessment] 12/04/17 12/04/17 12/04/17 15:00 15:05 15:15 Temperature 99.5 F Pulse Rate 107 H 105 H 105 H Pulse Rate [ Right From Monitor] Respiratory 16 30 H Rate Blood Pressure 134/67 137/77 137/77 O2 Sat by Pulse 100 Oximetry O2 Sat by Pulse Oximetry [ Assessment] 12/04/17 12/04/17 12/04/17 15:30 15:46 16:00 Temperature Pulse Rate 100 H 102 H 98 H Pulse Rate [ Right From Monitor] Respiratory 33 H Rate Blood Pressure 142/76 158/86 141/84 O2 Sat by Pulse 100 Oximetry O2 Sat by Pulse Oximetry [ Assessment] 12/04/17 12/04/17 16:01 17:00 Temperature Pulse Rate 101 H 100 H Pulse Rate [ Right From Monitor] Respiratory 28 H Rate Blood Pressure 141/84 148/84 O2 Sat by Pulse 100 Oximetry O2 Sat by Pulse Oximetry [ Assessment] - Labs CBC & Chem 7: 12/05/17 04:05 12/05/17 04:05 Labs: Abnormal lab results 12/04/17 Range/Units 12:26 POC Glucose 119 H (70-105)
[2017-12-04] MEDS: MAXIPIME/NS 2 GM/100 ML 2 GM/100 ML BAG IV SCH (19:10)
[2017-12-05] MEDS: SODIUM CHLORIDE FLUSH SYRINGE 10 ML IV SCH ×4 (00:42→22:59)
[2017-12-05 05:38] LABS: Basophils # (Auto) 0.1 K/mm3 (0.0-0.1); Basophils % (Auto) 0.8 % (0.0-1.8); Eosinophils # (Auto) 0.5 K/mm3 (0.0-0.4); Eosinophils % (Auto) 5.2 % (0.0-4.3); Hematocrit 24.2 % (35.5-45.6); Hemoglobin 7.7 gm/dl (11.8-15.2); Lymphocytes # (Auto) 1.1 K/mm3 (1.2-5.4); Lymphocytes % (Auto) 10.6 % (13.4-35.0); Mean Corpuscular HGB Conc 32 % (32-34); Mean Corpuscular Volume 82 fl (84-94); Monocytes # (Auto) 1.3 K/mm3 (0.0-0.8); Monocytes % (Auto) 12.1 % (0.0-7.3); Platelet Count 105 K/mm3 (140-440); Red Blood Count 2.96 M/mm3 (3.65-5.03); Red Cell Distribution Width 18.8 % (13.2-15.2)
[2017-12-05 05:42] LABS: Mean Corpuscular Hemoglobin 26 pg (28-32)
[2017-12-05 06:05] LABS: Calcium 8.3 mg/dL (8.4-10.2)
[2017-12-05] MEDS: PROTONIX (nf) FEEDTUBE SCH ×2 (09:35→22:59)
[2017-12-05] MEDS: LOPRESSOR PO SCH ×2 (09:35→22:59)
[2017-12-05] MEDS: DIFLUCAN 200 MG/100 ML BAG IV SCH (09:36)
--- NOTE | 2017-12-05 10:19 | Progress Note ---
Assessment and Plan Assessment * Acute kidney injury secondary to ATN --Intermittent HD started on 11/23/17 * Sepsis secondary to peritonitis/PEG malpositioning --RUQ/LUQ drains: Enterobacter, Heather (non albicans) * Aspiration pneumonitis related to above * Anemia * Acute CVA * Carotid artery disease s/p CEA * Encephalopathy Plan: * No evidence of renal recovery * Continue HD MWF. UF as tolerated * Abx per ID * uf as tolerated with HD * IR and surgery notes reviewed * Strict I/O * Avoid potential nephrptoxins * Dose medications for renal function * Replete lytes prn * Avoid nephrotoxins Subjective Date of service: 12/05/17 Principal diagnosis: Acute hypoxic respiratory failure due to Pneumonia on MV> 96 hours s/p Trach Interval history: new consult noted, last seen 11/09 with normal renal function Objective - Exam Narrative Exam: Constitutional: lethargic, other (intubated) Eyes: non-icteric ENT: oropharynx moist, other (ETT at 24 cm) Neck: supple, no JVD Ascultation: Bilateral: rhonchi (bilateral LT >>RT) Cardiovascular: regular rate and rhythm, other (tachycardic) Gastrointestinal: normoactive bowel sounds, non-distended Integumentary: normal Extremities: no cyanosis, no edema, other (RT femoral line in place) Neurologic: unable to assess (opens eyes spontaneously but does not follow commands . ) - Vital Signs Vital signs: Vital Signs - 12hr 12/04/17 12/05/17 12/05/17 23:22 00:00 00:22 Temperature 98.9 F Pulse Rate 88 80 97 H Pulse Rate [ Right From Monitor] Respiratory 26 H 27 H 35 H Rate Blood Pressure 106/58 110/62 O2 Sat by Pulse 100 100 100 Oximetry O2 Sat by Pulse Oximetry [ Assessment] 12/05/17 12/05/17 12/05/17 00:31 01:00 02:00 Temperature Pulse Rate 106 H 92 H Pulse Rate [ 97 H Right From Monitor] Respiratory 36 H 35 H 27 H Rate Blood Pressure 128/76 111/63 O2 Sat by Pulse 100 98 100 Oximetry O2 Sat by Pulse Oximetry [ Assessment] 12/05/17 12/05/17 12/05/17 03:00 03:13 03:15 Temperature Pulse Rate 100 H Pulse Rate [ Right From Monitor] Respiratory 17 Rate Blood Pressure 120/75 O2 Sat by Pulse 100 100 Oximetry O2 Sat by Pulse 100 Oximetry [ Assessment] 12/05/17 12/05/17 12/05/17 04:00 05:00 06:00 Temperature 99.3 F Pulse Rate 98 H 94 H 100 H Pulse Rate [ 94 H Right From Monitor] Respiratory 31 H 31 H 29 H Rate Blood Pressure 109/68 109/66 117/69 O2 Sat by Pulse 100 100 100 Oximetry O2 Sat by Pulse Oximetry [ Assessment] 12/05/17 12/05/17 12/05/17 07:00 08:00 09:00 Temperature 99.5 F Pulse Rate 84 96 H 110 H Pulse Rate [ Right From Monitor] Respiratory 29 H 30 H 20 Rate Blood Pressure 111/65 118/71 118/71 O2 Sat by Pulse 100 100 100 Oximetry O2 Sat by Pulse Oximetry [ Assessment] 12/05/17 09:15 Temperature Pulse Rate Pulse Rate [ Right From Monitor] Respiratory Rate Blood Pressure O2 Sat by Pulse 100 Oximetry O2 Sat by Pulse Oximetry [ Assessment] - Lab 12/05/17 04:05 12/05/17 04:05 Most recent lab results Calcium 8.3 mg/dL (8.4-10.2) L 12/05/17 04:05 Magnesium 2.00 mg/dL (1.7-2.3) 11/24/17 21:53
--- NOTE | 2017-12-05 13:05 | Progress Note ---
Assessment and Plan 67 y/o male with acute on chronic respiratory failure, now trached, with peritonitis from dislodged peg tube s/p 2 IR drains now with NGT feedings. 1. Trach Care 2. Follow up any new IR recs, plan for additional drain placement on Thursday. 3. IV abx 4. PT/OT 5. Continue T-piece Subjective Date of service: 12/05/17 Principal diagnosis: Acute hypoxic respiratory failure due to Pneumonia on MV> 96 hours s/p Trach Interval history: Successful transfer to step down. Stable. Had repeat CT yesterday at request of IR. Objective Vital Signs - 12hr 12/05/17 12/05/17 12/05/17 02:00 03:00 03:13 Temperature Pulse Rate 92 H 100 H Pulse Rate [ Right From Monitor] Respiratory 27 H 17 Rate Blood Pressure 111/63 120/75 O2 Sat by Pulse 100 100 Oximetry O2 Sat by Pulse 100 Oximetry [ Assessment] 12/05/17 12/05/17 12/05/17 03:15 04:00 05:00 Temperature 99.3 F Pulse Rate 98 H 94 H Pulse Rate [ 94 H Right From Monitor] Respiratory 31 H 31 H Rate Blood Pressure 109/68 109/66 O2 Sat by Pulse 100 100 100 Oximetry O2 Sat by Pulse Oximetry [ Assessment] 12/05/17 12/05/17 12/05/17 06:00 07:00 08:00 Temperature 99.5 F Pulse Rate 100 H 84 96 H Pulse Rate [ Right From Monitor] Respiratory 29 H 29 H 30 H Rate Blood Pressure 117/69 111/65 118/71 O2 Sat by Pulse 100 100 100 Oximetry O2 Sat by Pulse Oximetry [ Assessment] 12/05/17 12/05/17 12/05/17 08:35 09:00 09:15 Temperature Pulse Rate 110 H Pulse Rate [ Right From Monitor] Respiratory 20 Rate Blood Pressure 118/71 O2 Sat by Pulse 100 100 Oximetry O2 Sat by Pulse 100 Oximetry [ Assessment] 12/05/17 12/05/17 12/05/17 10:00 11:00 12:00 Temperature Pulse Rate 92 H 90 89 Pulse Rate [ Right From Monitor] Respiratory 28 H 30 H 30 H Rate Blood Pressure 111/65 118/73 117/70 O2 Sat by Pulse 100 100 100 Oximetry O2 Sat by Pulse Oximetry [ Assessment] Constitutional: other (s/p trach, awake) Eyes: non-icteric ENT: oropharynx moist Neck: supple (Number 8 perc trach, midline and stable) Effort: normal Ascultation: Bilateral: clear, rhonchi (sporadic), other (coarse BS bilaterally) Cardiovascular: regular rate and rhythm (no mrg) Gastrointestinal: normoactive bowel sounds, soft, non-tender, other (distended but better after drainage) Integumentary: normal Extremities: no cyanosis, pink and warm, anasarca Neurologic: other (L hemiparesis) Psychiatric: other (unable to assess) CBC and BMP: 12/05/17 04:05 12/05/17 04:05 ABG, PT/INR, D-dimer: ABG POC ABG pH 7.505 (7.35-7.45) H 11/23/17 04:56 POC ABG pCO2 26.3 (35-45) L 11/23/17 04:56 POC ABG pO2 100 (80-105) 11/23/17 04:56 POC ABG HCO3 20.8 11/23/17 04:56 POC ABG Total CO2 22 11/23/17 04:56 POC ABG O2 Sat 98 11/23/17 04:56 PT/INR, D-dimer PT 23.6 Sec. (12.2-14.9) H 11/26/17 06:29 INR 1.96 (0.87-1.13) H 11/26/17 06:29 Abnormal lab findings: Abnormal Labs 11/11/17 11/11/17 11/11/17 23:18 23:20 23:20 WBC RBC Hgb 10.4 L Hct 32.6 L D MCV MCH 27 L MCHC RDW 17.4 H Plt Count 105 L Lymph % (Auto) [place] % (Auto) Eos % (Auto) Lymph # [place] # Eos # Seg Neutrophils % Seg Neuts % (Manual) Lymphocytes % (Manual) 8.0 L Monocytes % (Manual) Nucleated RBC % 1.0 H Seg Neutrophils # Seg Neutrophils # Man Lymphocytes # (Manual) 0.7 L Monocytes # (Manual) PT INR POC ABG pH 7.550 H POC ABG pCO2 31.6 L POC ABG pO2 Sodium 146 H Potassium Chloride Carbon Dioxide BUN 26 H Creatinine 1.7 H D Glucose 133 H POC Glucose Lactic Acid Calcium Magnesium AST ALT Alkaline Phosphatase Troponin T 0.117 H* C-Reactive Protein Total Protein Albumin 2.5 L LDL Cholesterol Direct 42 L HDL Cholesterol 24 L Hepatitis C Antibody Crossmatch 11/11/17 11/12/17 11/12/17 23:20 00:23 00:23 WBC RBC Hgb Hct MCV MCH MCHC RDW Plt Count Lymph % (Auto) [place] % (Auto) Eos % (Auto) Lymph # [place] # Eos # Seg Neutrophils % Seg Neuts % (Manual) Lymphocytes % (Manual) Monocytes % (Manual) Nucleated RBC % Seg Neutrophils # Seg Neutrophils # Man Lymphocytes # (Manual) Monocytes # (Manual) PT 16.7 H INR 1.28 H POC ABG pH POC ABG pCO2 POC ABG pO2 Sodium Potassium Chloride Carbon Dioxide BUN Creatinine Glucose POC Glucose Lactic Acid 3.20 H* Calcium Magnesium AST ALT Alkaline Phosphatase Troponin T C-Reactive Protein 25.70 H Total Protein Albumin LDL Cholesterol Direct HDL Cholesterol Hepatitis C Antibody Crossmatch 11/12/17 11/12/17 11/12/17 00:46 01:27 01:27 WBC RBC Hgb Hct MCV MCH MCHC RDW Plt Count Lymph % (Auto) [place] % (Auto) Eos % (Auto) Lymph # [place] # Eos # Seg Neutrophils % Seg Neuts % (Manual) Lymphocytes % (Manual) Monocytes % (Manual) Nucleated RBC % Seg Neutrophils # Seg Neutrophils # Man Lymphocytes # (Manual) Monocytes # (Manual) PT INR POC ABG pH 7.495 H POC ABG pCO2 32.0 L POC ABG pO2 64 L Sodium Potassium Chloride Carbon Dioxide BUN Creatinine Glucose POC Glucose Lactic Acid 3.70 H* Calcium Magnesium AST ALT Alkaline Phosphatase Troponin T 0.096 H C-Reactive Protein Total Protein Albumin LDL Cholesterol Direct HDL Cholesterol Hepatitis C Antibody Crossmatch 11/12/17 11/12/17 11/12/17 03:21 04:50 06:27 WBC RBC Hgb Hct MCV MCH MCHC RDW Plt Count Lymph % (Auto) [place] % (Auto) Eos % (Auto) Lymph # [place] # Eos # Seg Neutrophils % Seg Neuts % (Manual) Lymphocytes % (Manual) Monocytes % (Manual) Nucleated RBC % Seg Neutrophils # Seg Neutrophils # Man Lymphocytes # (Manual) Monocytes # (Manual) PT INR POC ABG pH POC ABG pCO2 POC ABG pO2 109 H Sodium Potassium Chloride Carbon Dioxide BUN Creatinine Glucose POC Glucose Lactic Acid 3.80 H* 2.20 H* Calcium Magnesium AST ALT Alkaline Phosphatase Troponin T C-Reactive Protein Total Protein Albumin LDL Cholesterol Direct HDL Cholesterol Hepatitis C Antibody Crossmatch 11/12/17 11/12/17 11/12/17 09:24 09:24 09:24 WBC RBC Hgb 10.4 L Hct 33.4 L MCV MCH MCHC RDW Plt Count Lymph % (Auto) [place] % (Auto) Eos % (Auto) Lymph # [place] # Eos # Seg Neutrophils % Seg Neuts % (Manual) Lymphocytes % (Manual) Monocytes % (Manual) Nucleated RBC % Seg Neutrophils # Seg Neutrophils # Man Lymphocytes # (Manual) Monocytes # (Manual) PT INR POC ABG pH POC ABG pCO2 POC ABG pO2 Sodium Potassium Chloride Carbon Dioxide BUN Creatinine Glucose POC Glucose Lactic Acid 2.90 H* Calcium Magnesium AST ALT Alkaline Phosphatase Troponin T 0.091 H C-Reactive Protein Total Protein Albumin LDL Cholesterol Direct HDL Cholesterol Hepatitis C Antibody Crossmatch 11/12/17 11/12/17 11/12/17 12:56 20:03 Unknown WBC RBC Hgb Hct MCV MCH MCHC RDW Plt Count Lymph % (Auto) [place] % (Auto) Eos % (Auto) Lymph # [place] # Eos # Seg Neutrophils % Seg Neuts % (Manual) Lymphocytes % (Manual) Monocytes % (Manual) Nucleated RBC % Seg Neutrophils # Seg Neutrophils # Man Lymphocytes # (Manual) Monocytes # (Manual) PT INR POC ABG pH POC ABG pCO2 POC ABG pO2 Sodium Potassium Chloride Carbon Dioxide BUN Creatinine Glucose POC Glucose Lactic Acid 3.60 H* Calcium Magnesium AST ALT Alkaline Phosphatase Troponin T 0.102 H* 0.156 H* D C-Reactive Protein Total Protein Albumin LDL Cholesterol Direct HDL Cholesterol Hepatitis C Antibody Crossmatch 11/12/17 11/13/17 11/13/17 Unknown 04:50 04:50 WBC 12.2 H RBC 3.51 L Hgb 9.3 L Hct 30.1 L MCV MCH 26 L MCHC 31 L RDW 18.0 H Plt Count 128 L Lymph % (Auto) 8.6 L [place] % (Auto) 11.1 H Eos % (Auto) Lymph # 1.1 L [place] # 1.4 H Eos # Seg Neutrophils % 80.1 H Seg Neuts % (Manual) Lymphocytes % (Manual) Monocytes % (Manual) Nucleated RBC % Seg Neutrophils # 9.8 H Seg Neutrophils # Man Lymphocytes # (Manual) Monocytes # (Manual) PT INR POC ABG pH POC ABG pCO2 POC ABG pO2 Sodium 149 H Potassium 5.1 H Chloride 114.4 H Carbon Dioxide 18 L BUN 52 H Creatinine 3.3 H D Glucose 129 H POC Glucose Lactic Acid Calcium 7.9 L Magnesium AST ALT Alkaline Phosphatase Troponin T 0.098 H C-Reactive Protein Total Protein Albumin LDL Cholesterol Direct HDL Cholesterol Hepatitis C Antibody Crossmatch 11/13/17 11/13/17 11/14/17 04:51 09:34 04:21 WBC RBC Hgb Hct MCV MCH MCHC RDW Plt Count Lymph % (Auto) [place] % (Auto) Eos % (Auto) Lymph # [place] # Eos # Seg Neutrophils % Seg Neuts % (Manual) Lymphocytes % (Manual) Monocytes % (Manual) Nucleated RBC % Seg Neutrophils # Seg Neutrophils # Man Lymphocytes # (Manual) Monocytes # (Manual) PT INR POC ABG pH POC ABG pCO2 30.1 L 29.8 L POC ABG pO2 135 H Sodium Potassium Chloride Carbon Dioxide BUN Creatinine Glucose POC Glucose Lactic Acid 2.10 H* Calcium Magnesium AST ALT Alkaline Phosphatase Troponin T C-Reactive Protein Total Protein Albumin LDL Cholesterol Direct HDL Cholesterol Hepatitis C Antibody Crossmatch 11/15/17 11/15/17 11/16/17 04:52 15:50 05:17 WBC RBC Hgb Hct MCV MCH MCHC RDW Plt Count Lymph % (Auto) [place] % (Auto) Eos % (Auto) Lymph # [place] # Eos # Seg Neutrophils % Seg Neuts % (Manual) Lymphocytes % (Manual) Monocytes % (Manual) Nucleated RBC % Seg Neutrophils # Seg Neutrophils # Man Lymphocytes # (Manual) Monocytes # (Manual) PT INR POC ABG pH POC ABG pCO2 29.5 L 31.5 L POC ABG pO2 115 H 122 H Sodium 154 H Potassium Chloride 117.9 H Carbon Dioxide 19 L BUN 87 H Creatinine 4.1 H Glucose POC Glucose Lactic Acid Calcium 8.1 L Magnesium AST ALT Alkaline Phosphatase Troponin T C-Reactive Protein Total Protein Albumin LDL Cholesterol Direct HDL Cholesterol Hepatitis C Antibody Crossmatch 11/16/17 11/17/17 11/17/17 16:37 04:07 10:00 WBC 14.7 H RBC 3.23 L Hgb 8.3 L Hct 28.1 L MCV MCH 26 L MCHC 30 L RDW 18.8 H Plt Count Lymph % (Auto) [place] % (Auto) Eos % (Auto) Lymph # [place] # Eos # Seg Neutrophils % Seg Neuts % (Manual) 75 H Lymphocytes % (Manual) 8.0 L Monocytes % (Manual) Nucleated RBC % 1.0 H Seg Neutrophils # Seg Neutrophils # Man 11.0 H Lymphocytes # (Manual) Monocytes # (Manual) 0.9 H PT INR POC ABG pH POC ABG pCO2 POC ABG pO2 Sodium 153 H 155 H Potassium Chloride 117.3 H 119.4 H Carbon Dioxide 19 L 20 L BUN 90 H 89 H Creatinine 3.9 H 3.6 H Glucose 111 H 115 H POC Glucose Lactic Acid Calcium 8.1 L 8.0 L Magnesium AST ALT Alkaline Phosphatase Troponin T C-Reactive Protein Total Protein Albumin LDL Cholesterol Direct HDL Cholesterol Hepatitis C Antibody Crossmatch 11/18/17 11/18/17 11/18/17 04:34 04:34 04:34 WBC 15.5 H RBC 3.13 L Hgb 8.1 L Hct 26.3 L MCV MCH 26 L MCHC 31 L RDW 18.6 H Plt Count Lymph % (Auto) [place] % (Auto) Eos % (Auto) Lymph # [place] # Eos # Seg Neutrophils % Seg Neuts % (Manual) 81.0 H Lymphocytes % (Manual) 7.0 L Monocytes % (Manual) Nucleated RBC % 1.0 H Seg Neutrophils # Seg Neutrophils # Man 12.6 H Lymphocytes # (Manual) 1.1 L Monocytes # (Manual) PT 16.7 H INR 1.30 H POC ABG pH POC ABG pCO2 POC ABG pO2 Sodium 155 H Potassium 3.2 L Chloride 121.0 H Carbon Dioxide 20 L BUN 74 H Creatinine 2.9 H Glucose 126 H POC Glucose Lactic Acid Calcium 7.9 L Magnesium AST ALT Alkaline Phosphatase Troponin T C-Reactive Protein Total Protein Albumin LDL Cholesterol Direct HDL Cholesterol Hepatitis C Antibody Crossmatch 11/19/17 11/19/17 11/20/17 04:44 04:44 00:38 WBC 19.0 H 22.2 H RBC 3.20 L 3.17 L Hgb 8.4 L 7.9 L Hct 27.9 L 26.4 L MCV 83 L MCH 26 L 25 L MCHC 30 L 30 L RDW 19.1 H 18.9 H Plt Count Lymph % (Auto) [place] % (Auto) Eos % (Auto) Lymph # [place] # Eos # Seg Neutrophils % Seg Neuts % (Manual) 83.0 H Lymphocytes % (Manual) 3.0 L Monocytes % (Manual) 9.0 H Nucleated RBC % Seg Neutrophils # Seg Neutrophils # Man 18.4 H Lymphocytes # (Manual) 0.7 L Monocytes # (Manual) 2.0 H PT INR POC ABG pH POC ABG pCO2 POC ABG pO2 Sodium 152 H Potassium Chloride 117.1 H Carbon Dioxide 17 L BUN 66 H Creatinine 2.8 H Glucose 119 H POC Glucose Lactic Acid Calcium 7.8 L Magnesium 2.70 H AST ALT Alkaline Phosphatase Troponin T C-Reactive Protein Total Protein Albumin LDL Cholesterol Direct HDL Cholesterol Hepatitis C Antibody Crossmatch 11/20/17 11/20/17 11/20/17 03:29 04:48 13:38 WBC RBC Hgb Hct MCV MCH MCHC RDW Plt Count Lymph % (Auto) [place] % (Auto) Eos % (Auto) Lymph # [place] # Eos # Seg Neutrophils % Seg Neuts % (Manual) Lymphocytes % (Manual) Monocytes % (Manual) Nucleated RBC % Seg Neutrophils # Seg Neutrophils # Man Lymphocytes # (Manual) Monocytes # (Manual) PT INR POC ABG pH POC ABG pCO2 29.4 L POC ABG pO2 Sodium 148 H Potassium 3.4 L Chloride 113.7 H Carbon Dioxide 18 L BUN 59 H Creatinine 2.7 H Glucose 113 H POC Glucose 128 H Lactic Acid Calcium 7.8 L Magnesium AST ALT Alkaline Phosphatase Troponin T C-Reactive Protein Total Protein Albumin LDL Cholesterol Direct HDL Cholesterol Hepatitis C Antibody Crossmatch 11/20/17 11/20/17 11/21/17 17:38 23:40 00:13 WBC RBC Hgb 8.4 L Hct 28.0 L MCV MCH MCHC RDW Plt Count Lymph % (Auto) [place] % (Auto) Eos % (Auto) Lymph # [place] # Eos # Seg Neutrophils % Seg Neuts % (Manual) Lymphocytes % (Manual) Monocytes % (Manual) Nucleated RBC % Seg Neutrophils # Seg Neutrophils # Man Lymphocytes # (Manual) Monocytes # (Manual) PT INR POC ABG pH POC ABG pCO2 POC ABG pO2 Sodium Potassium Chloride Carbon Dioxide BUN Creatinine Glucose POC Glucose 115 H 145 H Lactic Acid Calcium Magnesium AST ALT Alkaline Phosphatase Troponin T C-Reactive Protein Total Protein Albumin LDL Cholesterol Direct HDL Cholesterol Hepatitis C Antibody Crossmatch 11/21/17 11/21/17 11/21/17 04:30 04:30 04:58 WBC 21.0 H RBC Hgb 9.6 L Hct 32.7 L MCV MCH 25 L MCHC 29 L RDW 19.7 H Plt Count 746 H Lymph % (Auto) [place] % (Auto) Eos % (Auto) Lymph # [place] # Eos # Seg Neutrophils % Seg Neuts % (Manual) Lymphocytes % (Manual) Monocytes % (Manual) Nucleated RBC % Seg Neutrophils # Seg Neutrophils # Man Lymphocytes # (Manual) Monocytes # (Manual) PT INR POC ABG pH POC ABG pCO2 POC ABG pO2 Sodium Potassium Chloride 109.4 H Carbon Dioxide 14 L BUN 59 H Creatinine 3.0 H Glucose 137 H POC Glucose 132 H Lactic Acid Calcium 7.6 L Magnesium AST ALT Alkaline Phosphatase Troponin T C-Reactive Protein Total Protein Albumin LDL Cholesterol Direct HDL Cholesterol Hepatitis C Antibody Crossmatch 11/21/17 11/21/17 11/21/17 06:30 13:43 14:17 WBC 38.2 H RBC Hgb 9.0 L Hct 32.3 L MCV MCH 25 L MCHC 28 L RDW 20.0 H Plt Count 766 H Lymph % (Auto) [place] % (Auto) Eos % (Auto) Lymph # [place] # Eos # Seg Neutrophils % Seg Neuts % (Manual) 85.0 H Lymphocytes % (Manual) 1.0 L Monocytes % (Manual) Nucleated RBC % 2.0 H Seg Neutrophils # Seg Neutrophils # Man 32.5 H Lymphocytes # (Manual) 0.4 L Monocytes # (Manual) 2.3 H PT INR POC ABG pH POC ABG pCO2 18.6 L POC ABG pO2 121 H Sodium 146 H Potassium Chloride 110.9 H Carbon Dioxide 11 L BUN 62 H Creatinine 4.0 H Glucose 64 L POC Glucose Lactic Acid Calcium 7.6 L Magnesium AST ALT Alkaline Phosphatase Troponin T C-Reactive Protein Total Protein Albumin LDL Cholesterol Direct HDL Cholesterol Hepatitis C Antibody Crossmatch 11/21/17 11/21/17 11/22/17 14:17 19:09 00:05 WBC RBC Hgb Hct MCV MCH MCHC RDW Plt Count Lymph % (Auto) [place] % (Auto) Eos % (Auto) Lymph # [place] # Eos # Seg Neutrophils % Seg Neuts % (Manual) Lymphocytes % (Manual) Monocytes % (Manual) Nucleated RBC % Seg Neutrophils # Seg Neutrophils # Man Lymphocytes # (Manual) Monocytes # (Manual) PT INR POC ABG pH POC ABG pCO2 20.0 L POC ABG pO2 Sodium Potassium Chloride Carbon Dioxide BUN Creatinine Glucose POC Glucose 127 H Lactic Acid 7.70 H* Calcium Magnesium AST ALT Alkaline Phosphatase Troponin T C-Reactive Protein Total Protein Albumin LDL Cholesterol Direct HDL Cholesterol Hepatitis C Antibody Crossmatch 11/22/17 11/22/17 11/22/17 03:53 06:00 07:25 WBC RBC Hgb Hct MCV MCH MCHC RDW Plt Count Lymph % (Auto) [place] % (Auto) Eos % (Auto) Lymph # [place] # Eos # Seg Neutrophils % Seg Neuts % (Manual) Lymphocytes % (Manual) Monocytes % (Manual) Nucleated RBC % Seg Neutrophils # Seg Neutrophils # Man Lymphocytes # (Manual) Monocytes # (Manual) PT INR POC ABG pH POC ABG pCO2 22.2 L POC ABG pO2 Sodium 147 H Potassium Chloride 111.9 H Carbon Dioxide 16 L BUN 72 H Creatinine 5.1 H Glucose 181 H POC Glucose 180 H Lactic Acid Calcium 7.1 L Magnesium AST ALT Alkaline Phosphatase Troponin T C-Reactive Protein Total Protein Albumin LDL Cholesterol Direct HDL Cholesterol Hepatitis C Antibody Crossmatch 11/22/17 11/22/17 11/22/17 07:25 07:25 12:05 WBC 31.4 H RBC 3.22 L Hgb 8.0 L Hct 26.7 L MCV 83 L MCH 25 L MCHC 30 L RDW 19.4 H Plt Count 602 H Lymph % (Auto) [place] % (Auto) Eos % (Auto) Lymph # [place] # Eos # Seg Neutrophils % Seg Neuts % (Manual) Lymphocytes % (Manual) Monocytes % (Manual) Nucleated RBC % Seg Neutrophils # Seg Neutrophils # Man Lymphocytes # (Manual) Monocytes # (Manual) PT INR POC ABG pH POC ABG pCO2 POC ABG pO2 Sodium Potassium Chloride Carbon Dioxide BUN Creatinine Glucose POC Glucose 182 H Lactic Acid 5.00 H* Calcium Magnesium AST ALT Alkaline Phosphatase Troponin T C-Reactive Protein Total Protein Albumin LDL Cholesterol Direct HDL Cholesterol Hepatitis C Antibody Crossmatch 11/22/17 11/23/17 11/23/17 19:45 01:28 04:56 WBC RBC Hgb Hct MCV MCH MCHC RDW Plt Count Lymph % (Auto) [place] % (Auto) Eos % (Auto) Lymph # [place] # Eos # Seg Neutrophils % Seg Neuts % (Manual) Lymphocytes % (Manual) Monocytes % (Manual) Nucleated RBC % Seg Neutrophils # Seg Neutrophils # Man Lymphocytes # (Manual) Monocytes # (Manual) PT INR POC ABG pH 7.505 H POC ABG pCO2 26.3 L POC ABG pO2 Sodium Potassium Chloride Carbon Dioxide BUN Creatinine Glucose POC Glucose 165 H Lactic Acid Calcium Magnesium AST ALT Alkaline Phosphatase Troponin T C-Reactive Protein Total Protein Albumin LDL Cholesterol Direct HDL Cholesterol Hepatitis C Antibody Reactive A Crossmatch 11/23/17 11/23/17 11/23/17 07:05 12:32 17:53 WBC RBC Hgb Hct MCV MCH MCHC RDW Plt Count Lymph % (Auto) [place] % (Auto) Eos % (Auto) Lymph # [place] # Eos # Seg Neutrophils % Seg Neuts % (Manual) Lymphocytes % (Manual) Monocytes % (Manual) Nucleated RBC % Seg Neutrophils # Seg Neutrophils # Man Lymphocytes # (Manual) Monocytes # (Manual) PT INR POC ABG pH POC ABG pCO2 POC ABG pO2 Sodium Potassium Chloride Carbon Dioxide 18 L BUN 61 H Creatinine 4.2 H Glucose 153 H POC Glucose 138 H 173 H Lactic Acid Calcium 7.5 L Magnesium AST ALT Alkaline Phosphatase Troponin T C-Reactive Protein Total Protein Albumin LDL Cholesterol Direct HDL Cholesterol Hepatitis C Antibody Crossmatch 11/23/17 11/24/17 11/24/17 23:41 05:42 05:42 WBC 21.5 H RBC 2.48 L Hgb 6.2 L Hct 20.3 L D MCV 82 L MCH 25 L MCHC 31 L RDW 18.9 H Plt Count Lymph % (Auto) [place] % (Auto) Eos % (Auto) Lymph # [place] # Eos # Seg Neutrophils % Seg Neuts % (Manual) 94.0 H Lymphocytes % (Manual) 3.0 L Monocytes % (Manual) Nucleated RBC % Seg Neutrophils # Seg Neutrophils # Man 20.2 H Lymphocytes # (Manual) 0.6 L Monocytes # (Manual) PT INR POC ABG pH POC ABG pCO2 POC ABG pO2 Sodium 149 H Potassium 2.8 L* D Chloride 113.9 H Carbon Dioxide 19 L BUN 31 H Creatinine 2.3 H Glucose 103 H POC Glucose 133 H Lactic Acid Calcium 5.3 L* D Magnesium 1.30 L AST ALT Alkaline Phosphatase Troponin T C-Reactive Protein Total Protein Albumin LDL Cholesterol Direct HDL Cholesterol Hepatitis C Antibody Crossmatch 11/24/17 11/24/17 11/24/17 05:42 08:27 08:27 WBC RBC Hgb Hct MCV MCH MCHC RDW Plt Count Lymph % (Auto) [place] % (Auto) Eos % (Auto) Lymph # [place] # Eos # Seg Neutrophils % Seg Neuts % (Manual) Lymphocytes % (Manual) Monocytes % (Manual) Nucleated RBC % Seg Neutrophils # Seg Neutrophils # Man Lymphocytes # (Manual) Monocytes # (Manual) PT INR POC ABG pH POC ABG pCO2 POC ABG pO2 Sodium Potassium Chloride Carbon Dioxide BUN Creatinine Glucose POC Glucose Lactic Acid 5.40 H* 5.20 H* Calcium Magnesium AST ALT Alkaline Phosphatase Troponin T C-Reactive Protein Total Protein Albumin LDL Cholesterol Direct HDL Cholesterol Hepatitis C Antibody Crossmatch See Detail 11/24/17 11/24/17 11/24/17 12:13 17:22 21:53 WBC 23.0 H RBC 3.32 L Hgb 8.8 L Hct 27.1 L D MCV 82 L MCH 26 L MCHC RDW 17.3 H Plt Count Lymph % (Auto) [place] % (Auto) Eos % (Auto) Lymph # [place] # Eos # Seg Neutrophils % Seg Neuts % (Manual) Lymphocytes % (Manual) Monocytes % (Manual) Nucleated RBC % Seg Neutrophils # Seg Neutrophils # Man Lymphocytes # (Manual) Monocytes # (Manual) PT INR POC ABG pH POC ABG pCO2 POC ABG pO2 Sodium Potassium Chloride Carbon Dioxide BUN Creatinine Glucose POC Glucose 138 H 180 H Lactic Acid Calcium Magnesium AST ALT Alkaline Phosphatase Troponin T C-Reactive Protein Total Protein Albumin LDL Cholesterol Direct HDL Cholesterol Hepatitis C Antibody Crossmatch 11/24/17 11/24/17 11/25/17 21:53 23:28 04:19 WBC RBC Hgb Hct MCV MCH MCHC RDW Plt Count Lymph % (Auto) [place] % (Auto) Eos % (Auto) Lymph # [place] # Eos # Seg Neutrophils % Seg Neuts % (Manual) Lymphocytes % (Manual) Monocytes % (Manual) Nucleated RBC % Seg Neutrophils # Seg Neutrophils # Man Lymphocytes # (Manual) Monocytes # (Manual) PT INR POC ABG pH POC ABG pCO2 POC ABG pO2 Sodium Potassium Chloride 96.3 L Carbon Dioxide BUN 28 H 31 H Creatinine 2.3 H 2.6 H Glucose 125 H 101 H POC Glucose 111 H Lactic Acid Calcium 7.5 L D 7.4 L Magnesium AST 170 H ALT 179 H Alkaline Phosphatase 175 H Troponin T C-Reactive Protein Total Protein 5.5 L Albumin 1.8 L LDL Cholesterol Direct HDL Cholesterol Hepatitis C Antibody Crossmatch 11/25/17 11/25/17 11/26/17 04:19 04:19 06:29 WBC 22.5 H RBC 3.48 L Hgb 9.1 L Hct 28.3 L MCV 81 L MCH 26 L MCHC RDW 17.4 H Plt Count Lymph % (Auto) [place] % (Auto) Eos % (Auto) Lymph # [place] # Eos # Seg Neutrophils % Seg Neuts % (Manual) Lymphocytes % (Manual) Monocytes % (Manual) Nucleated RBC % Seg Neutrophils # Seg Neutrophils # Man Lymphocytes # (Manual) Monocytes # (Manual) PT 23.6 H INR 1.96 H POC ABG pH POC ABG pCO2 POC ABG pO2 Sodium Potassium Chloride Carbon Dioxide BUN 31 H Creatinine 2.6 H Glucose 101 H POC Glucose Lactic Acid Calcium 7.5 L Magnesium AST ALT Alkaline Phosphatase Troponin T C-Reactive Protein Total Protein Albumin LDL Cholesterol Direct HDL Cholesterol Hepatitis C Antibody Crossmatch 11/26/17 11/27/17 11/27/17 06:34 04:06 04:06 WBC 11.3 H RBC 3.13 L Hgb 8.4 L Hct 25.8 L MCV 82 L MCH 27 L MCHC RDW 17.7 H Plt Count Lymph % (Auto) 7.4 L [place] % (Auto) Eos % (Auto) Lymph # 0.8 L [place] # Eos # Seg Neutrophils % 83.7 H Seg Neuts % (Manual) Lymphocytes % (Manual) Monocytes % (Manual) Nucleated RBC % Seg Neutrophils # 9.5 H Seg Neutrophils # Man Lymphocytes # (Manual) Monocytes # (Manual) PT INR POC ABG pH POC ABG pCO2 POC ABG pO2 Sodium Potassium Chloride 97.9 L Carbon Dioxide BUN 43 H 29 H Creatinine 3.5 H 2.9 H Glucose POC Glucose Lactic Acid Calcium 7.5 L 8.1 L Magnesium AST ALT Alkaline Phosphatase Troponin T C-Reactive Protein Total Protein Albumin LDL Cholesterol Direct HDL Cholesterol Hepatitis C Antibody Crossmatch 11/27/17 11/28/17 11/28/17 18:11 00:16 03:50 WBC RBC Hgb Hct MCV MCH MCHC RDW Plt Count Lymph % (Auto) [place] % (Auto) Eos % (Auto) Lymph # [place] # Eos # Seg Neutrophils % Seg Neuts % (Manual) Lymphocytes % (Manual) Monocytes % (Manual) Nucleated RBC % Seg Neutrophils # Seg Neutrophils # Man Lymphocytes # (Manual) Monocytes # (Manual) PT INR POC ABG pH POC ABG pCO2 POC ABG pO2 Sodium Potassium Chloride Carbon Dioxide BUN 39 H Creatinine 4.1 H Glucose 108 H POC Glucose 110 H 124 H Lactic Acid Calcium 7.9 L Magnesium AST ALT Alkaline Phosphatase Troponin T C-Reactive Protein Total Protein Albumin LDL Cholesterol Direct HDL Cholesterol Hepatitis C Antibody Crossmatch 11/28/17 11/28/17 11/28/17 05:03 11:36 17:42 WBC RBC Hgb Hct MCV MCH MCHC RDW Plt Count Lymph % (Auto) [place] % (Auto) Eos % (Auto) Lymph # [place] # Eos # Seg Neutrophils % Seg Neuts % (Manual) Lymphocytes % (Manual) Monocytes % (Manual) Nucleated RBC % Seg Neutrophils # Seg Neutrophils # Man Lymphocytes # (Manual) Monocytes # (Manual) PT INR POC ABG pH POC ABG pCO2 POC ABG pO2 Sodium Potassium Chloride Carbon Dioxide BUN Creatinine Glucose POC Glucose 134 H 114 H 119 H Lactic Acid Calcium Magnesium AST ALT Alkaline Phosphatase Troponin T C-Reactive Protein Total Protein Albumin LDL Cholesterol Direct HDL Cholesterol Hepatitis C Antibody Crossmatch 11/29/17 11/29/17 11/29/17 00:22 05:25 05:25 WBC 12.3 H RBC 3.34 L Hgb 8.6 L Hct 27.3 L MCV 82 L MCH 26 L MCHC RDW 18.5 H Plt Count Lymph % (Auto) 3.7 L [place] % (Auto) 7.7 H Eos % (Auto) Lymph # 0.5 L [place] # 1.0 H Eos # Seg Neutrophils % 86.5 H Seg Neuts % (Manual) Lymphocytes % (Manual) Monocytes % (Manual) Nucleated RBC % Seg Neutrophils # 10.7 H Seg Neutrophils # Man Lymphocytes # (Manual) Monocytes # (Manual) PT INR POC ABG pH POC ABG pCO2 POC ABG pO2 Sodium Potassium Chloride Carbon Dioxide BUN 29 H Creatinine 3.5 H Glucose 109 H POC Glucose 137 H Lactic Acid Calcium 7.8 L Magnesium AST ALT Alkaline Phosphatase Troponin T C-Reactive Protein Total Protein Albumin LDL Cholesterol Direct HDL Cholesterol Hepatitis C Antibody Crossmatch 11/29/17 11/30/17 11/30/17 05:26 00:26 04:17 WBC RBC Hgb Hct MCV MCH MCHC RDW Plt Count Lymph % (Auto) [place] % (Auto) Eos % (Auto) Lymph # [place] # Eos # Seg Neutrophils % Seg Neuts % (Manual) Lymphocytes % (Manual) Monocytes % (Manual) Nucleated RBC % Seg Neutrophils # Seg Neutrophils # Man Lymphocytes # (Manual) Monocytes # (Manual) PT INR POC ABG pH POC ABG pCO2 POC ABG pO2 Sodium Potassium Chloride Carbon Dioxide BUN 38 H Creatinine 4.3 H Glucose 109 H POC Glucose 129 H 152 H Lactic Acid Calcium 7.8 L Magnesium AST ALT Alkaline Phosphatase Troponin T C-Reactive Protein Total Protein Albumin LDL Cholesterol Direct HDL Cholesterol Hepatitis C Antibody Crossmatch 11/30/17 11/30/17 11/30/17 12:17 16:23 23:35 WBC RBC Hgb Hct MCV MCH MCHC RDW Plt Count Lymph % (Auto) [place] % (Auto) Eos % (Auto) Lymph # [place] # Eos # Seg Neutrophils % Seg Neuts % (Manual) Lymphocytes % (Manual) Monocytes % (Manual) Nucleated RBC % Seg Neutrophils # Seg Neutrophils # Man Lymphocytes # (Manual) Monocytes # (Manual) PT INR POC ABG pH POC ABG pCO2 POC ABG pO2 Sodium Potassium Chloride Carbon Dioxide BUN Creatinine Glucose POC Glucose 170 H 114 H 122 H Lactic Acid Calcium Magnesium AST ALT Alkaline Phosphatase Troponin T C-Reactive Protein Total Protein Albumin LDL Cholesterol Direct HDL Cholesterol Hepatitis C Antibody Crossmatch 12/01/17 12/01/17 12/01/17 04:09 04:09 12:17 WBC 14.1 H RBC 3.32 L Hgb 8.6 L Hct 27.0 L MCV 81 L MCH 26 L MCHC RDW 18.7 H Plt Count Lymph % (Auto) 5.5 L [place] % (Auto) 9.7 H Eos % (Auto) Lymph # 0.8 L [place] # 1.4 H Eos # Seg Neutrophils % 82.9 H Seg Neuts % (Manual) Lymphocytes % (Manual) Monocytes % (Manual) Nucleated RBC % Seg Neutrophils # 11.7 H Seg Neutrophils # Man Lymphocytes # (Manual) Monocytes # (Manual) PT INR POC ABG pH POC ABG pCO2 POC ABG pO2 Sodium Potassium 3.4 L Chloride Carbon Dioxide BUN 21 H Creatinine 3.0 H Glucose 108 H POC Glucose 126 H Lactic Acid Calcium 8.0 L Magnesium AST ALT Alkaline Phosphatase Troponin T C-Reactive Protein Total Protein Albumin LDL Cholesterol Direct HDL Cholesterol Hepatitis C Antibody Crossmatch 12/02/17 12/03/17 12/03/17 23:46 02:52 05:54 WBC 17.2 H RBC 3.21 L Hgb 8.5 L Hct 25.8 L MCV 80 L MCH 26 L MCHC RDW 18.4 H Plt Count 128 L Lymph % (Auto) [place] % (Auto) Eos % (Auto) Lymph # [place] # Eos # Seg Neutrophils % Seg Neuts % (Manual) Lymphocytes % (Manual) Monocytes % (Manual) Nucleated RBC % Seg Neutrophils # Seg Neutrophils # Man Lymphocytes # (Manual) Monocytes # (Manual) PT INR POC ABG pH POC ABG pCO2 POC ABG pO2 Sodium Potassium Chloride Carbon Dioxide BUN Creatinine Glucose POC Glucose 125 H 107 H Lactic Acid Calcium Magnesium AST ALT Alkaline Phosphatase Troponin T C-Reactive Protein Total Protein Albumin LDL Cholesterol Direct HDL Cholesterol Hepatitis C Antibody Crossmatch 12/03/17 12/03/17 12/04/17 12:05 Unknown 12:26 WBC RBC Hgb Hct MCV MCH MCHC RDW Plt Count Lymph % (Auto) [place] % (Auto) Eos % (Auto) Lymph # [place] # Eos # Seg Neutrophils % Seg Neuts % (Manual) Lymphocytes % (Manual) Monocytes % (Manual) Nucleated RBC % Seg Neutrophils # Seg Neutrophils # Man Lymphocytes # (Manual) Monocytes # (Manual) PT INR POC ABG pH POC ABG pCO2 POC ABG pO2 Sodium Potassium Chloride Carbon Dioxide BUN 21 H Creatinine 2.8 H Glucose 113 H POC Glucose 106 H 119 H Lactic Acid Calcium Magnesium AST ALT Alkaline Phosphatase Troponin T C-Reactive Protein Total Protein Albumin LDL Cholesterol Direct HDL Cholesterol Hepatitis C Antibody Crossmatch 12/04/17 12/05/17 12/05/17 17:57 04:05 04:05 WBC RBC 2.96 L Hgb 7.7 L Hct 24.2 L MCV 82 L MCH 26 L MCHC RDW 18.8 H Plt Count 105 L Lymph % (Auto) 10.6 L [place] % (Auto) 12.1 H Eos % (Auto) 5.2 H Lymph # 1.1 L [place] # 1.3 H Eos # 0.5 H Seg Neutrophils % 71.3 H Seg Neuts % (Manual) Lymphocytes % (Manual) Monocytes % (Manual) Nucleated RBC % Seg Neutrophils # Seg Neutrophils # Man Lymphocytes # (Manual) Monocytes # (Manual) PT INR POC ABG pH POC ABG pCO2 POC ABG pO2 Sodium Potassium Chloride 107.4 H Carbon Dioxide BUN Creatinine 2.5 H Glucose POC Glucose 140 H Lactic Acid Calcium 8.3 L Magnesium AST ALT Alkaline Phosphatase Troponin T C-Reactive Protein Total Protein Albumin LDL Cholesterol Direct HDL Cholesterol Hepatitis C Antibody Crossmatch
[2017-12-05] MEDS: MAXIPIME/NS 2 GM/100 ML 2 GM/100 ML BAG IV SCH (13:25)
--- NOTE | 2017-12-05 17:39 | Progress Note ---
Assessment and Plan Peritonitis from dislodged peg tube -Status post drainage placement by IR and removed PEG tube on 11/22 -peritoneal Fluid positive for Enterobacter, Heather (non albicans) -Antibiotic managed by ID -s/p multiple intraabdominal drainages placed by IR and GS. also had abdominal washout by GS -Repeat CT scan today showed persistent abdominal collection of abscess/fluid and plan for repeat drainage this upcoming week, probably on Thursday Acute on chronic respiratory failure with hypoxia - likely due to aspiratin and PNA -Status post tracheostomy, currently on T-piece -Pulmonology following Severe sepsis with shock likely secondary to aspiration pneumonia -Off IV pressors -Blood and sputum cultures negative Aspiration pneumonia with mucus plugging -treated with zosyn Acute kidney injury secondary to ATN -on Intermittent HD started on 11/23/17 -Creatinine level improved -Nephrology following Anemia of acute loss secondary to gastric ulcer and gastritis -Status post EGD on 11/18/2017 -Status post blood transfusion -H/H stable, will monitor Acute encephalopathy, likely multifactorial -Will continue to monitor clinically -Prognosis is poor Hypernatremia -Resolved Hypokalemia -We will monitor level and replete as needed Hypomagnesemia -Resolved status post repletion Oropharyngeal dysphagia -Status post PEG tube placement on 11/06, now removed -On tube feeding with dobhoff History of recent CVA -Not on aspirin due to recent bleed RT ICA stenosis -s/p recent endarterectomy Disposition: Patient overall prognosis remains poor. Continue management Brief History 67yo M with history CVA, a PEG tube placed by GI on 11/06 presented (11/12) from rehab for respiratory failure, sepsis, hypotension and multilober PNA. Recent work-up for hypotension showed a dislodged PEG tube on CT scan with extraluminal PO contrast that was limited to the upper abdomen and left gutter. Pt had an EGD on 11/18 that did not show the PEG button or an obvious hole in the stomach. There was no free air noted on CXR's. Pt had IR guided drainage placed in the 3 different locations of abdomen. He is now s/p trach by ENT. Ct abdoemn/pelvis showed persistent abdominal collection of abscess/fluid and plan for repeat drainage this upcoming week, probably on Thursday Hospitalist Physical General appearance: Present: no acute distress - EENT Eyes: Present: PERRL ENT: clear oral mucosa - Neck Neck: Present: supple, other (status post tracheostomy on T-piece) - Respiratory Respiratory effort: normal Respiratory: bilateral: CTA - Cardiovascular Rhythm: other (tachycardia) Heart Sounds: Present: S1 & S2 - Extremities Extremity abnormal: edema (in BLE) - Abdominal General gastrointestinal: non-distended, distended, normal bowel sounds, other ( firm on palpation), total [address] - Neurologic Neurologic: other (patient is awake but unable to follow commands) Subjective Date of service: 12/05/17 Principal diagnosis: Acute hypoxic respiratory failure due to Pneumonia on MV> 96 hours s/p Trach Interval history: Pt seen and examined, nonverbal No acute event reported by RN discussed plan of care with daughter at bedside Objective - Constitutional Vitals: Vital Signs - 12hr 12/05/17 12/05/17 12/05/17 06:00 07:00 08:00 Temperature 99.5 F Pulse Rate 100 H 84 96 H Respiratory 29 H 29 H 30 H Rate Blood Pressure 117/69 111/65 118/71 O2 Sat by Pulse 100 100 100 Oximetry O2 Sat by Pulse Oximetry [ Assessment] 12/05/17 12/05/17 12/05/17 08:35 09:00 09:15 Temperature Pulse Rate 110 H Respiratory 20 Rate Blood Pressure 118/71 O2 Sat by Pulse 100 100 Oximetry O2 Sat by Pulse 100 Oximetry [ Assessment] 12/05/17 12/05/17 12/05/17 10:00 11:00 12:00 Temperature 99.3 F Pulse Rate 92 H 90 89 Respiratory 28 H 30 H 30 H Rate Blood Pressure 111/65 118/73 117/70 O2 Sat by Pulse 100 100 100 Oximetry O2 Sat by Pulse Oximetry [ Assessment] 12/05/17 12/05/17 12/05/17 13:00 13:43 14:00 Temperature Pulse Rate 103 H 87 Respiratory 32 H 28 H Rate Blood Pressure 135/82 109/61 O2 Sat by Pulse 98 100 Oximetry O2 Sat by Pulse 100 Oximetry [ Assessment] 12/05/17 12/05/17 15:00 16:00 Temperature Pulse Rate 100 H 96 H Respiratory 27 H 30 H Rate Blood Pressure 119/76 124/74 O2 Sat by Pulse 100 100 Oximetry O2 Sat by Pulse Oximetry [ Assessment] - Labs CBC & Chem 7: 12/05/17 04:05 12/05/17 04:05 Labs: Abnormal lab results 12/04/17 12/05/17 12/05/17 Range/Units 17:57 04:05 04:05 RBC 2.96 L (3.65-5.03) M/mm3 Hgb 7.7 L (11.8-15.2) gm/dl Hct 24.2 L (35.5-45.6) % MCV 82 L (84-94) fl MCH 26 L (28-32) pg RDW 18.8 H (13.2-15.2) % Plt Count 105 L (140-440) K/mm3 Lymph % (Auto) 10.6 L (13.4-35.0) % [place] % (Auto) 12.1 H (0.0-7.3) % Eos % (Auto) 5.2 H (0.0-4.3) % Lymph # 1.1 L (1.2-5.4) K/mm3 [place] # 1.3 H (0.0-0.8) K/mm3 Eos # 0.5 H (0.0-0.4) K/mm3 Seg Neutrophils % 71.3 H (40.0-70.0) % Chloride 107.4 H (98-107) mmol/L Creatinine 2.5 H (0.8-1.5) mg/dL POC Glucose 140 H (70-105) Calcium 8.3 L (8.4-10.2) mg/dL
[2017-12-05] MEDS: TYLENOL PR PRN (22:58)
[2017-12-06] MEDS: TYLENOL PR PRN (04:30)
--- NOTE | 2017-12-06 09:15 | Progress Note ---
Assessment and Plan 67 y/o male with acute on chronic respiratory failure, now trached, with peritonitis from dislodged peg tube s/p 2 IR drains now with NGT feedings now spiking fevers again. 1. Trach Care 2. Follow up any new IR recs, plan for additional drain placement on Thursday. 3. IV abx 4. PT/OT 5. Continue T-piece 6. consider repeat blood cultures with next fever spike. ID, I think, is not rounding this weekend but likely available by phone. Subjective Date of service: 12/06/17 Principal diagnosis: Acute hypoxic respiratory failure due to Pneumonia on MV> 96 hours s/p Trach Interval history: patient spiked a temp yesterday evening twice. Low grade this am. Pulm status is unchanged. Objective Vital Signs - 12hr 12/05/17 12/05/17 12/05/17 22:00 22:54 22:59 Temperature 98.9 F Pulse Rate 108 H 86 Respiratory 33 H Rate Blood Pressure 148/87 148/87 O2 Sat by Pulse 99 Oximetry O2 Sat by Pulse Oximetry [ Assessment] 12/05/17 12/05/17 12/05/17 23:00 23:24 23:50 Temperature Pulse Rate 104 H 102 H Respiratory 33 H 22 Rate Blood Pressure 126/83 126/83 O2 Sat by Pulse 100 100 Oximetry O2 Sat by Pulse 100 Oximetry [ Assessment] 12/06/17 12/06/17 12/06/17 00:00 01:00 02:00 Temperature Pulse Rate 102 H 101 H 104 H Respiratory 33 H 32 H 34 H Rate Blood Pressure 126/83 142/78 146/82 O2 Sat by Pulse 100 100 100 Oximetry O2 Sat by Pulse Oximetry [ Assessment] 12/06/17 12/06/17 12/06/17 03:00 03:47 04:00 Temperature 101 F H Pulse Rate 108 H 95 H Respiratory 34 H 30 H Rate Blood Pressure 147/87 120/71 O2 Sat by Pulse 100 100 Oximetry O2 Sat by Pulse Oximetry [ Assessment] 12/06/17 12/06/17 12/06/17 04:29 04:45 05:00 Temperature 99.6 F Pulse Rate 104 H Respiratory 15 Rate Blood Pressure 136/78 O2 Sat by Pulse 97 Oximetry O2 Sat by Pulse 100 Oximetry [ Assessment] 12/06/17 12/06/17 12/06/17 06:00 07:00 08:00 Temperature 100.4 F H Pulse Rate 109 H 96 H Respiratory 35 H 32 H Rate Blood Pressure 136/78 110/64 140/85 O2 Sat by Pulse 98 96 97 Oximetry O2 Sat by Pulse 95 Oximetry [ Assessment] 12/06/17 08:54 Temperature Pulse Rate Respiratory Rate Blood Pressure O2 Sat by Pulse 99 Oximetry O2 Sat by Pulse Oximetry [ Assessment] Constitutional: other (s/p trach, awake) Eyes: non-icteric ENT: oropharynx moist Neck: supple (Number 8 perc trach, midline and stable) Effort: normal Ascultation: Bilateral: clear, rhonchi (sporadic), other (coarse BS bilaterally) Cardiovascular: regular rate and rhythm (no mrg) Gastrointestinal: normoactive bowel sounds, soft, non-tender, other (distended but better after drainage) Integumentary: normal Extremities: no cyanosis, pink and warm, anasarca Neurologic: other (L hemiparesis) Psychiatric: other (unable to assess) CBC and BMP: 12/05/17 04:05 12/05/17 04:05 ABG, PT/INR, D-dimer: ABG POC ABG pH 7.505 (7.35-7.45) H 11/23/17 04:56 POC ABG pCO2 26.3 (35-45) L 11/23/17 04:56 POC ABG pO2 100 (80-105) 11/23/17 04:56 POC ABG HCO3 20.8 11/23/17 04:56 POC ABG Total CO2 22 11/23/17 04:56 POC ABG O2 Sat 98 11/23/17 04:56 PT/INR, D-dimer PT 23.6 Sec. (12.2-14.9) H 11/26/17 06:29 INR 1.96 (0.87-1.13) H 11/26/17 06:29 Abnormal lab findings: Abnormal Labs 11/11/17 11/11/17 11/11/17 23:18 23:20 23:20 WBC RBC Hgb 10.4 L Hct 32.6 L D MCV MCH 27 L MCHC RDW 17.4 H Plt Count 105 L Lymph % (Auto) [place] % (Auto) Eos % (Auto) Lymph # [place] # Eos # Seg Neutrophils % Seg Neuts % (Manual) Lymphocytes % (Manual) 8.0 L Monocytes % (Manual) Nucleated RBC % 1.0 H Seg Neutrophils # Seg Neutrophils # Man Lymphocytes # (Manual) 0.7 L Monocytes # (Manual) PT INR POC ABG pH 7.550 H POC ABG pCO2 31.6 L POC ABG pO2 Sodium 146 H Potassium Chloride Carbon Dioxide BUN 26 H Creatinine 1.7 H D Glucose 133 H POC Glucose Lactic Acid Calcium Magnesium AST ALT Alkaline Phosphatase Troponin T 0.117 H* C-Reactive Protein Total Protein Albumin 2.5 L LDL Cholesterol Direct 42 L HDL Cholesterol 24 L Hepatitis C Antibody Crossmatch 11/11/17 11/12/17 11/12/17 23:20 00:23 00:23 WBC RBC Hgb Hct MCV MCH MCHC RDW Plt Count Lymph % (Auto) [place] % (Auto) Eos % (Auto) Lymph # [place] # Eos # Seg Neutrophils % Seg Neuts % (Manual) Lymphocytes % (Manual) Monocytes % (Manual) Nucleated RBC % Seg Neutrophils # Seg Neutrophils # Man Lymphocytes # (Manual) Monocytes # (Manual) PT 16.7 H INR 1.28 H POC ABG pH POC ABG pCO2 POC ABG pO2 Sodium Potassium Chloride Carbon Dioxide BUN Creatinine Glucose POC Glucose Lactic Acid 3.20 H* Calcium Magnesium AST ALT Alkaline Phosphatase Troponin T C-Reactive Protein 25.70 H Total Protein Albumin LDL Cholesterol Direct HDL Cholesterol Hepatitis C Antibody Crossmatch 11/12/17 11/12/17 11/12/17 00:46 01:27 01:27 WBC RBC Hgb Hct MCV MCH MCHC RDW Plt Count Lymph % (Auto) [place] % (Auto) Eos % (Auto) Lymph # [place] # Eos # Seg Neutrophils % Seg Neuts % (Manual) Lymphocytes % (Manual) Monocytes % (Manual) Nucleated RBC % Seg Neutrophils # Seg Neutrophils # Man Lymphocytes # (Manual) Monocytes # (Manual) PT INR POC ABG pH 7.495 H POC ABG pCO2 32.0 L POC ABG pO2 64 L Sodium Potassium Chloride Carbon Dioxide BUN Creatinine Glucose POC Glucose Lactic Acid 3.70 H* Calcium Magnesium AST ALT Alkaline Phosphatase Troponin T 0.096 H C-Reactive Protein Total Protein Albumin LDL Cholesterol Direct HDL Cholesterol Hepatitis C Antibody Crossmatch 11/12/17 11/12/17 11/12/17 03:21 04:50 06:27 WBC RBC Hgb Hct MCV MCH MCHC RDW Plt Count Lymph % (Auto) [place] % (Auto) Eos % (Auto) Lymph # [place] # Eos # Seg Neutrophils % Seg Neuts % (Manual) Lymphocytes % (Manual) Monocytes % (Manual) Nucleated RBC % Seg Neutrophils # Seg Neutrophils # Man Lymphocytes # (Manual) Monocytes # (Manual) PT INR POC ABG pH POC ABG pCO2 POC ABG pO2 109 H Sodium Potassium Chloride Carbon Dioxide BUN Creatinine Glucose POC Glucose Lactic Acid 3.80 H* 2.20 H* Calcium Magnesium AST ALT Alkaline Phosphatase Troponin T C-Reactive Protein Total Protein Albumin LDL Cholesterol Direct HDL Cholesterol Hepatitis C Antibody Crossmatch 11/12/17 11/12/17 11/12/17 09:24 09:24 09:24 WBC RBC Hgb 10.4 L Hct 33.4 L MCV MCH MCHC RDW Plt Count Lymph % (Auto) [place] % (Auto) Eos % (Auto) Lymph # [place] # Eos # Seg Neutrophils % Seg Neuts % (Manual) Lymphocytes % (Manual) Monocytes % (Manual) Nucleated RBC % Seg Neutrophils # Seg Neutrophils # Man Lymphocytes # (Manual) Monocytes # (Manual) PT INR POC ABG pH POC ABG pCO2 POC ABG pO2 Sodium Potassium Chloride Carbon Dioxide BUN Creatinine Glucose POC Glucose Lactic Acid 2.90 H* Calcium Magnesium AST ALT Alkaline Phosphatase Troponin T 0.091 H C-Reactive Protein Total Protein Albumin LDL Cholesterol Direct HDL Cholesterol Hepatitis C Antibody Crossmatch 11/12/17 11/12/17 11/12/17 12:56 20:03 Unknown WBC RBC Hgb Hct MCV MCH MCHC RDW Plt Count Lymph % (Auto) [place] % (Auto) Eos % (Auto) Lymph # [place] # Eos # Seg Neutrophils % Seg Neuts % (Manual) Lymphocytes % (Manual) Monocytes % (Manual) Nucleated RBC % Seg Neutrophils # Seg Neutrophils # Man Lymphocytes # (Manual) Monocytes # (Manual) PT INR POC ABG pH POC ABG pCO2 POC ABG pO2 Sodium Potassium Chloride Carbon Dioxide BUN Creatinine Glucose POC Glucose Lactic Acid 3.60 H* Calcium Magnesium AST ALT Alkaline Phosphatase Troponin T 0.102 H* 0.156 H* D C-Reactive Protein Total Protein Albumin LDL Cholesterol Direct HDL Cholesterol Hepatitis C Antibody Crossmatch 11/12/17 11/13/17 11/13/17 Unknown 04:50 04:50 WBC 12.2 H RBC 3.51 L Hgb 9.3 L Hct 30.1 L MCV MCH 26 L MCHC 31 L RDW 18.0 H Plt Count 128 L Lymph % (Auto) 8.6 L [place] % (Auto) 11.1 H Eos % (Auto) Lymph # 1.1 L [place] # 1.4 H Eos # Seg Neutrophils % 80.1 H Seg Neuts % (Manual) Lymphocytes % (Manual) Monocytes % (Manual) Nucleated RBC % Seg Neutrophils # 9.8 H Seg Neutrophils # Man Lymphocytes # (Manual) Monocytes # (Manual) PT INR POC ABG pH POC ABG pCO2 POC ABG pO2 Sodium 149 H Potassium 5.1 H Chloride 114.4 H Carbon Dioxide 18 L BUN 52 H Creatinine 3.3 H D Glucose 129 H POC Glucose Lactic Acid Calcium 7.9 L Magnesium AST ALT Alkaline Phosphatase Troponin T 0.098 H C-Reactive Protein Total Protein Albumin LDL Cholesterol Direct HDL Cholesterol Hepatitis C Antibody Crossmatch 11/13/17 11/13/17 11/14/17 04:51 09:34 04:21 WBC RBC Hgb Hct MCV MCH MCHC RDW Plt Count Lymph % (Auto) [place] % (Auto) Eos % (Auto) Lymph # [place] # Eos # Seg Neutrophils % Seg Neuts % (Manual) Lymphocytes % (Manual) Monocytes % (Manual) Nucleated RBC % Seg Neutrophils # Seg Neutrophils # Man Lymphocytes # (Manual) Monocytes # (Manual) PT INR POC ABG pH POC ABG pCO2 30.1 L 29.8 L POC ABG pO2 135 H Sodium Potassium Chloride Carbon Dioxide BUN Creatinine Glucose POC Glucose Lactic Acid 2.10 H* Calcium Magnesium AST ALT Alkaline Phosphatase Troponin T C-Reactive Protein Total Protein Albumin LDL Cholesterol Direct HDL Cholesterol Hepatitis C Antibody Crossmatch 11/15/17 11/15/17 11/16/17 04:52 15:50 05:17 WBC RBC Hgb Hct MCV MCH MCHC RDW Plt Count Lymph % (Auto) [place] % (Auto) Eos % (Auto) Lymph # [place] # Eos # Seg Neutrophils % Seg Neuts % (Manual) Lymphocytes % (Manual) Monocytes % (Manual) Nucleated RBC % Seg Neutrophils # Seg Neutrophils # Man Lymphocytes # (Manual) Monocytes # (Manual) PT INR POC ABG pH POC ABG pCO2 29.5 L 31.5 L POC ABG pO2 115 H 122 H Sodium 154 H Potassium Chloride 117.9 H Carbon Dioxide 19 L BUN 87 H Creatinine 4.1 H Glucose POC Glucose Lactic Acid Calcium 8.1 L Magnesium AST ALT Alkaline Phosphatase Troponin T C-Reactive Protein Total Protein Albumin LDL Cholesterol Direct HDL Cholesterol Hepatitis C Antibody Crossmatch 11/16/17 11/17/17 11/17/17 16:37 04:07 10:00 WBC 14.7 H RBC 3.23 L Hgb 8.3 L Hct 28.1 L MCV MCH 26 L MCHC 30 L RDW 18.8 H Plt Count Lymph % (Auto) [place] % (Auto) Eos % (Auto) Lymph # [place] # Eos # Seg Neutrophils % Seg Neuts % (Manual) 75 H Lymphocytes % (Manual) 8.0 L Monocytes % (Manual) Nucleated RBC % 1.0 H Seg Neutrophils # Seg Neutrophils # Man 11.0 H Lymphocytes # (Manual) Monocytes # (Manual) 0.9 H PT INR POC ABG pH POC ABG pCO2 POC ABG pO2 Sodium 153 H 155 H Potassium Chloride 117.3 H 119.4 H Carbon Dioxide 19 L 20 L BUN 90 H 89 H Creatinine 3.9 H 3.6 H Glucose 111 H 115 H POC Glucose Lactic Acid Calcium 8.1 L 8.0 L Magnesium AST ALT Alkaline Phosphatase Troponin T C-Reactive Protein Total Protein Albumin LDL Cholesterol Direct HDL Cholesterol Hepatitis C Antibody Crossmatch 11/18/17 11/18/17 11/18/17 04:34 04:34 04:34 WBC 15.5 H RBC 3.13 L Hgb 8.1 L Hct 26.3 L MCV MCH 26 L MCHC 31 L RDW 18.6 H Plt Count Lymph % (Auto) [place] % (Auto) Eos % (Auto) Lymph # [place] # Eos # Seg Neutrophils % Seg Neuts % (Manual) 81.0 H Lymphocytes % (Manual) 7.0 L Monocytes % (Manual) Nucleated RBC % 1.0 H Seg Neutrophils # Seg Neutrophils # Man 12.6 H Lymphocytes # (Manual) 1.1 L Monocytes # (Manual) PT 16.7 H INR 1.30 H POC ABG pH POC ABG pCO2 POC ABG pO2 Sodium 155 H Potassium 3.2 L Chloride 121.0 H Carbon Dioxide 20 L BUN 74 H Creatinine 2.9 H Glucose 126 H POC Glucose Lactic Acid Calcium 7.9 L Magnesium AST ALT Alkaline Phosphatase Troponin T C-Reactive Protein Total Protein Albumin LDL Cholesterol Direct HDL Cholesterol Hepatitis C Antibody Crossmatch 11/19/17 11/19/1718 04:44 04:44 00:38 WBC 19.0 H 22.2 H RBC 3.20 L 3.17 L Hgb 8.4 L 7.9 L Hct 27.9 L 26.4 L MCV 83 L MCH 26 L 25 L MCHC 30 L 30 L RDW 19.1 H 18.9 H Plt Count Lymph % (Auto) [place] % (Auto) Eos % (Auto) Lymph # [place] # Eos # Seg Neutrophils % Seg Neuts % (Manual) 83.0 H Lymphocytes % (Manual) 3.0 L Monocytes % (Manual) 9.0 H Nucleated RBC % Seg Neutrophils # Seg Neutrophils # Man 18.4 H Lymphocytes # (Manual) 0.7 L Monocytes # (Manual) 2.0 H PT INR POC ABG pH POC ABG pCO2 POC ABG pO2 Sodium 152 H Potassium Chloride 117.1 H Carbon Dioxide 17 L BUN 66 H Creatinine 2.8 H Glucose 119 H POC Glucose Lactic Acid Calcium 7.8 L Magnesium 2.70 H AST ALT Alkaline Phosphatase Troponin T C-Reactive Protein Total Protein Albumin LDL Cholesterol Direct HDL Cholesterol Hepatitis C Antibody Crossmatch 11/20/17 11/20/17 11/20/17 03:29 04:48 13:38 WBC RBC Hgb Hct MCV MCH MCHC RDW Plt Count Lymph % (Auto) [place] % (Auto) Eos % (Auto) Lymph # [place] # Eos # Seg Neutrophils % Seg Neuts % (Manual) Lymphocytes % (Manual) Monocytes % (Manual) Nucleated RBC % Seg Neutrophils # Seg Neutrophils # Man Lymphocytes # (Manual) Monocytes # (Manual) PT INR POC ABG pH POC ABG pCO2 29.4 L POC ABG pO2 Sodium 148 H Potassium 3.4 L Chloride 113.7 H Carbon Dioxide 18 L BUN 59 H Creatinine 2.7 H Glucose 113 H POC Glucose 128 H Lactic Acid Calcium 7.8 L Magnesium AST ALT Alkaline Phosphatase Troponin T C-Reactive Protein Total Protein Albumin LDL Cholesterol Direct HDL Cholesterol Hepatitis C Antibody Crossmatch 11/20/17 11/20/17 11/21/17 17:38 23:40 00:13 WBC RBC Hgb 8.4 L Hct 28.0 L MCV MCH MCHC RDW Plt Count Lymph % (Auto) [place] % (Auto) Eos % (Auto) Lymph # [place] # Eos # Seg Neutrophils % Seg Neuts % (Manual) Lymphocytes % (Manual) Monocytes % (Manual) Nucleated RBC % Seg Neutrophils # Seg Neutrophils # Man Lymphocytes # (Manual) Monocytes # (Manual) PT INR POC ABG pH POC ABG pCO2 POC ABG pO2 Sodium Potassium Chloride Carbon Dioxide BUN Creatinine Glucose POC Glucose 115 H 145 H Lactic Acid Calcium Magnesium AST ALT Alkaline Phosphatase Troponin T C-Reactive Protein Total Protein Albumin LDL Cholesterol Direct HDL Cholesterol Hepatitis C Antibody Crossmatch 11/21/17 11/21/17 11/21/17 04:30 04:30 04:58 WBC 21.0 H RBC Hgb 9.6 L Hct 32.7 L MCV MCH 25 L MCHC 29 L RDW 19.7 H Plt Count 746 H Lymph % (Auto) [place] % (Auto) Eos % (Auto) Lymph # [place] # Eos # Seg Neutrophils % Seg Neuts % (Manual) Lymphocytes % (Manual) Monocytes % (Manual) Nucleated RBC % Seg Neutrophils # Seg Neutrophils # Man Lymphocytes # (Manual) Monocytes # (Manual) PT INR POC ABG pH POC ABG pCO2 POC ABG pO2 Sodium Potassium Chloride 109.4 H Carbon Dioxide 14 L BUN 59 H Creatinine 3.0 H Glucose 137 H POC Glucose 132 H Lactic Acid Calcium 7.6 L Magnesium AST ALT Alkaline Phosphatase Troponin T C-Reactive Protein Total Protein Albumin LDL Cholesterol Direct HDL Cholesterol Hepatitis C Antibody Crossmatch 11/21/17 11/21/17 11/21/17 06:30 13:43 14:17 WBC 38.2 H RBC Hgb 9.0 L Hct 32.3 L MCV MCH 25 L MCHC 28 L RDW 20.0 H Plt Count 766 H Lymph % (Auto) [place] % (Auto) Eos % (Auto) Lymph # [place] # Eos # Seg Neutrophils % Seg Neuts % (Manual) 85.0 H Lymphocytes % (Manual) 1.0 L Monocytes % (Manual) Nucleated RBC % 2.0 H Seg Neutrophils # Seg Neutrophils # Man 32.5 H Lymphocytes # (Manual) 0.4 L Monocytes # (Manual) 2.3 H PT INR POC ABG pH POC ABG pCO2 18.6 L POC ABG pO2 121 H Sodium 146 H Potassium Chloride 110.9 H Carbon Dioxide 11 L BUN 62 H Creatinine 4.0 H Glucose 64 L POC Glucose Lactic Acid Calcium 7.6 L Magnesium AST ALT Alkaline Phosphatase Troponin T C-Reactive Protein Total Protein Albumin LDL Cholesterol Direct HDL Cholesterol Hepatitis C Antibody Crossmatch 11/21/17 11/21/17 11/22/17 14:17 19:09 00:05 WBC RBC Hgb Hct MCV MCH MCHC RDW Plt Count Lymph % (Auto) [place] % (Auto) Eos % (Auto) Lymph # [place] # Eos # Seg Neutrophils % Seg Neuts % (Manual) Lymphocytes % (Manual) Monocytes % (Manual) Nucleated RBC % Seg Neutrophils # Seg Neutrophils # Man Lymphocytes # (Manual) Monocytes # (Manual) PT INR POC ABG pH POC ABG pCO2 20.0 L POC ABG pO2 Sodium Potassium Chloride Carbon Dioxide BUN Creatinine Glucose POC Glucose 127 H Lactic Acid 7.70 H* Calcium Magnesium AST ALT Alkaline Phosphatase Troponin T C-Reactive Protein Total Protein Albumin LDL Cholesterol Direct HDL Cholesterol Hepatitis C Antibody Crossmatch 11/22/17 11/22/17 11/22/17 03:53 06:00 07:25 WBC RBC Hgb Hct MCV MCH MCHC RDW Plt Count Lymph % (Auto) [place] % (Auto) Eos % (Auto) Lymph # [place] # Eos # Seg Neutrophils % Seg Neuts % (Manual) Lymphocytes % (Manual) Monocytes % (Manual) Nucleated RBC % Seg Neutrophils # Seg Neutrophils # Man Lymphocytes # (Manual) Monocytes # (Manual) PT INR POC ABG pH POC ABG pCO2 22.2 L POC ABG pO2 Sodium 147 H Potassium Chloride 111.9 H Carbon Dioxide 16 L BUN 72 H Creatinine 5.1 H Glucose 181 H POC Glucose 180 H Lactic Acid Calcium 7.1 L Magnesium AST ALT Alkaline Phosphatase Troponin T C-Reactive Protein Total Protein Albumin LDL Cholesterol Direct HDL Cholesterol Hepatitis C Antibody Crossmatch 11/22/17 11/22/17 11/22/17 07:25 07:25 12:05 WBC 31.4 H RBC 3.22 L Hgb 8.0 L Hct 26.7 L MCV 83 L MCH 25 L MCHC 30 L RDW 19.4 H Plt Count 602 H Lymph % (Auto) [place] % (Auto) Eos % (Auto) Lymph # [place] # Eos # Seg Neutrophils % Seg Neuts % (Manual) Lymphocytes % (Manual) Monocytes % (Manual) Nucleated RBC % Seg Neutrophils # Seg Neutrophils # Man Lymphocytes # (Manual) Monocytes # (Manual) PT INR POC ABG pH POC ABG pCO2 POC ABG pO2 Sodium Potassium Chloride Carbon Dioxide BUN Creatinine Glucose POC Glucose 182 H Lactic Acid 5.00 H* Calcium Magnesium AST ALT Alkaline Phosphatase Troponin T C-Reactive Protein Total Protein Albumin LDL Cholesterol Direct HDL Cholesterol Hepatitis C Antibody Crossmatch 11/22/17 11/23/17 11/23/17 19:45 01:28 04:56 WBC RBC Hgb Hct MCV MCH MCHC RDW Plt Count Lymph % (Auto) [place] % (Auto) Eos % (Auto) Lymph # [place] # Eos # Seg Neutrophils % Seg Neuts % (Manual) Lymphocytes % (Manual) Monocytes % (Manual) Nucleated RBC % Seg Neutrophils # Seg Neutrophils # Man Lymphocytes # (Manual) Monocytes # (Manual) PT INR POC ABG pH 7.505 H POC ABG pCO2 26.3 L POC ABG pO2 Sodium Potassium Chloride Carbon Dioxide BUN Creatinine Glucose POC Glucose 165 H Lactic Acid Calcium Magnesium AST ALT Alkaline Phosphatase Troponin T C-Reactive Protein Total Protein Albumin LDL Cholesterol Direct HDL Cholesterol Hepatitis C Antibody Reactive A Crossmatch 11/23/17 11/23/17 11/23/17 07:05 12:32 17:53 WBC RBC Hgb Hct MCV MCH MCHC RDW Plt Count Lymph % (Auto) [place] % (Auto) Eos % (Auto) Lymph # [place] # Eos # Seg Neutrophils % Seg Neuts % (Manual) Lymphocytes % (Manual) Monocytes % (Manual) Nucleated RBC % Seg Neutrophils # Seg Neutrophils # Man Lymphocytes # (Manual) Monocytes # (Manual) PT INR POC ABG pH POC ABG pCO2 POC ABG pO2 Sodium Potassium Chloride Carbon Dioxide 18 L BUN 61 H Creatinine 4.2 H Glucose 153 H POC Glucose 138 H 173 H Lactic Acid Calcium 7.5 L Magnesium AST ALT Alkaline Phosphatase Troponin T C-Reactive Protein Total Protein Albumin LDL Cholesterol Direct HDL Cholesterol Hepatitis C Antibody Crossmatch 11/23/17 11/24/17 11/24/17 23:41 05:42 05:42 WBC 21.5 H RBC 2.48 L Hgb 6.2 L Hct 20.3 L D MCV 82 L MCH 25 L MCHC 31 L RDW 18.9 H Plt Count Lymph % (Auto) [place] % (Auto) Eos % (Auto) Lymph # [place] # Eos # Seg Neutrophils % Seg Neuts % (Manual) 94.0 H Lymphocytes % (Manual) 3.0 L Monocytes % (Manual) Nucleated RBC % Seg Neutrophils # Seg Neutrophils # Man 20.2 H Lymphocytes # (Manual) 0.6 L Monocytes # (Manual) PT INR POC ABG pH POC ABG pCO2 POC ABG pO2 Sodium 149 H Potassium 2.8 L* D Chloride 113.9 H Carbon Dioxide 19 L BUN 31 H Creatinine 2.3 H Glucose 103 H POC Glucose 133 H Lactic Acid Calcium 5.3 L* D Magnesium 1.30 L AST ALT Alkaline Phosphatase Troponin T C-Reactive Protein Total Protein Albumin LDL Cholesterol Direct HDL Cholesterol Hepatitis C Antibody Crossmatch 11/24/17 11/24/17 11/24/17 05:42 08:27 08:27 WBC RBC Hgb Hct MCV MCH MCHC RDW Plt Count Lymph % (Auto) [place] % (Auto) Eos % (Auto) Lymph # [place] # Eos # Seg Neutrophils % Seg Neuts % (Manual) Lymphocytes % (Manual) Monocytes % (Manual) Nucleated RBC % Seg Neutrophils # Seg Neutrophils # Man Lymphocytes # (Manual) Monocytes # (Manual) PT INR POC ABG pH POC ABG pCO2 POC ABG pO2 Sodium Potassium Chloride Carbon Dioxide BUN Creatinine Glucose POC Glucose Lactic Acid 5.40 H* 5.20 H* Calcium Magnesium AST ALT Alkaline Phosphatase Troponin T C-Reactive Protein Total Protein Albumin LDL Cholesterol Direct HDL Cholesterol Hepatitis C Antibody Crossmatch See Detail 11/24/17 11/24/17 11/24/17 12:13 17:22 21:53 WBC 23.0 H RBC 3.32 L Hgb 8.8 L Hct 27.1 L D MCV 82 L MCH 26 L MCHC RDW 17.3 H Plt Count Lymph % (Auto) [place] % (Auto) Eos % (Auto) Lymph # [place] # Eos # Seg Neutrophils % Seg Neuts % (Manual) Lymphocytes % (Manual) Monocytes % (Manual) Nucleated RBC % Seg Neutrophils # Seg Neutrophils # Man Lymphocytes # (Manual) Monocytes # (Manual) PT INR POC ABG pH POC ABG pCO2 POC ABG pO2 Sodium Potassium Chloride Carbon Dioxide BUN Creatinine Glucose POC Glucose 138 H 180 H Lactic Acid Calcium Magnesium AST ALT Alkaline Phosphatase Troponin T C-Reactive Protein Total Protein Albumin LDL Cholesterol Direct HDL Cholesterol Hepatitis C Antibody Crossmatch 11/24/17 11/24/17 11/25/17 21:53 23:28 04:19 WBC RBC Hgb Hct MCV MCH MCHC RDW Plt Count Lymph % (Auto) [place] % (Auto) Eos % (Auto) Lymph # [place] # Eos # Seg Neutrophils % Seg Neuts % (Manual) Lymphocytes % (Manual) Monocytes % (Manual) Nucleated RBC % Seg Neutrophils # Seg Neutrophils # Man Lymphocytes # (Manual) Monocytes # (Manual) PT INR POC ABG pH POC ABG pCO2 POC ABG pO2 Sodium Potassium Chloride 96.3 L Carbon Dioxide BUN 28 H 31 H Creatinine 2.3 H 2.6 H Glucose 125 H 101 H POC Glucose 111 H Lactic Acid Calcium 7.5 L D 7.4 L Magnesium AST 170 H ALT 179 H Alkaline Phosphatase 175 H Troponin T C-Reactive Protein Total Protein 5.5 L Albumin 1.8 L LDL Cholesterol Direct HDL Cholesterol Hepatitis C Antibody Crossmatch 11/25/17 11/25/17 11/26/17 04:19 04:19 06:29 WBC 22.5 H RBC 3.48 L Hgb 9.1 L Hct 28.3 L MCV 81 L MCH 26 L MCHC RDW 17.4 H Plt Count Lymph % (Auto) [place] % (Auto) Eos % (Auto) Lymph # [place] # Eos # Seg Neutrophils % Seg Neuts % (Manual) Lymphocytes % (Manual) Monocytes % (Manual) Nucleated RBC % Seg Neutrophils # Seg Neutrophils # Man Lymphocytes # (Manual) Monocytes # (Manual) PT 23.6 H INR 1.96 H POC ABG pH POC ABG pCO2 POC ABG pO2 Sodium Potassium Chloride Carbon Dioxide BUN 31 H Creatinine 2.6 H Glucose 101 H POC Glucose Lactic Acid Calcium 7.5 L Magnesium AST ALT Alkaline Phosphatase Troponin T C-Reactive Protein Total Protein Albumin LDL Cholesterol Direct HDL Cholesterol Hepatitis C Antibody Crossmatch 11/26/17 11/27/17 11/27/17 06:34 04:06 04:06 WBC 11.3 H RBC 3.13 L Hgb 8.4 L Hct 25.8 L MCV 82 L MCH 27 L MCHC RDW 17.7 H Plt Count Lymph % (Auto) 7.4 L [place] % (Auto) Eos % (Auto) Lymph # 0.8 L [place] # Eos # Seg Neutrophils % 83.7 H Seg Neuts % (Manual) Lymphocytes % (Manual) Monocytes % (Manual) Nucleated RBC % Seg Neutrophils # 9.5 H Seg Neutrophils # Man Lymphocytes # (Manual) Monocytes # (Manual) PT INR POC ABG pH POC ABG pCO2 POC ABG pO2 Sodium Potassium Chloride 97.9 L Carbon Dioxide BUN 43 H 29 H Creatinine 3.5 H 2.9 H Glucose POC Glucose Lactic Acid Calcium 7.5 L 8.1 L Magnesium AST ALT Alkaline Phosphatase Troponin T C-Reactive Protein Total Protein Albumin LDL Cholesterol Direct HDL Cholesterol Hepatitis C Antibody Crossmatch 11/27/17 11/28/17 11/28/17 18:11 00:16 03:50 WBC RBC Hgb Hct MCV MCH MCHC RDW Plt Count Lymph % (Auto) [place] % (Auto) Eos % (Auto) Lymph # [place] # Eos # Seg Neutrophils % Seg Neuts % (Manual) Lymphocytes % (Manual) Monocytes % (Manual) Nucleated RBC % Seg Neutrophils # Seg Neutrophils # Man Lymphocytes # (Manual) Monocytes # (Manual) PT INR POC ABG pH POC ABG pCO2 POC ABG pO2 Sodium Potassium Chloride Carbon Dioxide BUN 39 H Creatinine 4.1 H Glucose 108 H POC Glucose 110 H 124 H Lactic Acid Calcium 7.9 L Magnesium AST ALT Alkaline Phosphatase Troponin T C-Reactive Protein Total Protein Albumin LDL Cholesterol Direct HDL Cholesterol Hepatitis C Antibody Crossmatch 11/28/17 11/28/17 11/28/17 05:03 11:36 17:42 WBC RBC Hgb Hct MCV MCH MCHC RDW Plt Count Lymph % (Auto) [place] % (Auto) Eos % (Auto) Lymph # [place] # Eos # Seg Neutrophils % Seg Neuts % (Manual) Lymphocytes % (Manual) Monocytes % (Manual) Nucleated RBC % Seg Neutrophils # Seg Neutrophils # Man Lymphocytes # (Manual) Monocytes # (Manual) PT INR POC ABG pH POC ABG pCO2 POC ABG pO2 Sodium Potassium Chloride Carbon Dioxide BUN Creatinine Glucose POC Glucose 134 H 114 H 119 H Lactic Acid Calcium Magnesium AST ALT Alkaline Phosphatase Troponin T C-Reactive Protein Total Protein Albumin LDL Cholesterol Direct HDL Cholesterol Hepatitis C Antibody Crossmatch 11/29/17 11/29/17 11/29/17 00:22 05:25 05:25 WBC 12.3 H RBC 3.34 L Hgb 8.6 L Hct 27.3 L MCV 82 L MCH 26 L MCHC RDW 18.5 H Plt Count Lymph % (Auto) 3.7 L [place] % (Auto) 7.7 H Eos % (Auto) Lymph # 0.5 L [place] # 1.0 H Eos # Seg Neutrophils % 86.5 H Seg Neuts % (Manual) Lymphocytes % (Manual) Monocytes % (Manual) Nucleated RBC % Seg Neutrophils # 10.7 H Seg Neutrophils # Man Lymphocytes # (Manual) Monocytes # (Manual) PT INR POC ABG pH POC ABG pCO2 POC ABG pO2 Sodium Potassium Chloride Carbon Dioxide BUN 29 H Creatinine 3.5 H Glucose 109 H POC Glucose 137 H Lactic Acid Calcium 7.8 L Magnesium AST ALT Alkaline Phosphatase Troponin T C-Reactive Protein Total Protein Albumin LDL Cholesterol Direct HDL Cholesterol Hepatitis C Antibody Crossmatch 11/29/17 11/30/17 11/30/17 05:26 00:26 04:17 WBC RBC Hgb Hct MCV MCH MCHC RDW Plt Count Lymph % (Auto) [place] % (Auto) Eos % (Auto) Lymph # [place] # Eos # Seg Neutrophils % Seg Neuts % (Manual) Lymphocytes % (Manual) Monocytes % (Manual) Nucleated RBC % Seg Neutrophils # Seg Neutrophils # Man Lymphocytes # (Manual) Monocytes # (Manual) PT INR POC ABG pH POC ABG pCO2 POC ABG pO2 Sodium Potassium Chloride Carbon Dioxide BUN 38 H Creatinine 4.3 H Glucose 109 H POC Glucose 129 H 152 H Lactic Acid Calcium 7.8 L Magnesium AST ALT Alkaline Phosphatase Troponin T C-Reactive Protein Total Protein Albumin LDL Cholesterol Direct HDL Cholesterol Hepatitis C Antibody Crossmatch 11/30/17 11/30/17 11/30/17 12:17 16:23 23:35 WBC RBC Hgb Hct MCV MCH MCHC RDW Plt Count Lymph % (Auto) [place] % (Auto) Eos % (Auto) Lymph # [place] # Eos # Seg Neutrophils % Seg Neuts % (Manual) Lymphocytes % (Manual) Monocytes % (Manual) Nucleated RBC % Seg Neutrophils # Seg Neutrophils # Man Lymphocytes # (Manual) Monocytes # (Manual) PT INR POC ABG pH POC ABG pCO2 POC ABG pO2 Sodium Potassium Chloride Carbon Dioxide BUN Creatinine Glucose POC Glucose 170 H 114 H 122 H Lactic Acid Calcium Magnesium AST ALT Alkaline Phosphatase Troponin T C-Reactive Protein Total Protein Albumin LDL Cholesterol Direct HDL Cholesterol Hepatitis C Antibody Crossmatch 12/01/17 12/01/17 12/01/17 04:09 04:09 12:17 WBC 14.1 H RBC 3.32 L Hgb 8.6 L Hct 27.0 L MCV 81 L MCH 26 L MCHC RDW 18.7 H Plt Count Lymph % (Auto) 5.5 L [place] % (Auto) 9.7 H Eos % (Auto) Lymph # 0.8 L [place] # 1.4 H Eos # Seg Neutrophils % 82.9 H Seg Neuts % (Manual) Lymphocytes % (Manual) Monocytes % (Manual) Nucleated RBC % Seg Neutrophils # 11.7 H Seg Neutrophils # Man Lymphocytes # (Manual) Monocytes # (Manual) PT INR POC ABG pH POC ABG pCO2 POC ABG pO2 Sodium Potassium 3.4 L Chloride Carbon Dioxide BUN 21 H Creatinine 3.0 H Glucose 108 H POC Glucose 126 H Lactic Acid Calcium 8.0 L Magnesium AST ALT Alkaline Phosphatase Troponin T C-Reactive Protein Total Protein Albumin LDL Cholesterol Direct HDL Cholesterol Hepatitis C Antibody Crossmatch 12/02/17 12/03/17 12/03/17 23:46 02:52 05:54 WBC 17.2 H RBC 3.21 L Hgb 8.5 L Hct 25.8 L MCV 80 L MCH 26 L MCHC RDW 18.4 H Plt Count 128 L Lymph % (Auto) [place] % (Auto) Eos % (Auto) Lymph # [place] # Eos # Seg Neutrophils % Seg Neuts % (Manual) Lymphocytes % (Manual) Monocytes % (Manual) Nucleated RBC % Seg Neutrophils # Seg Neutrophils # Man Lymphocytes # (Manual) Monocytes # (Manual) PT INR POC ABG pH POC ABG pCO2 POC ABG pO2 Sodium Potassium Chloride Carbon Dioxide BUN Creatinine Glucose POC Glucose 125 H 107 H Lactic Acid Calcium Magnesium AST ALT Alkaline Phosphatase Troponin T C-Reactive Protein Total Protein Albumin LDL Cholesterol Direct HDL Cholesterol Hepatitis C Antibody Crossmatch 12/03/17 12/03/17 12/04/17 12:05 Unknown 12:26 WBC RBC Hgb Hct MCV MCH MCHC RDW Plt Count Lymph % (Auto) [place] % (Auto) Eos % (Auto) Lymph # [place] # Eos # Seg Neutrophils % Seg Neuts % (Manual) Lymphocytes % (Manual) Monocytes % (Manual) Nucleated RBC % Seg Neutrophils # Seg Neutrophils # Man Lymphocytes # (Manual) Monocytes # (Manual) PT INR POC ABG pH POC ABG pCO2 POC ABG pO2 Sodium Potassium Chloride Carbon Dioxide BUN 21 H Creatinine 2.8 H Glucose 113 H POC Glucose 106 H 119 H Lactic Acid Calcium Magnesium AST ALT Alkaline Phosphatase Troponin T C-Reactive Protein Total Protein Albumin LDL Cholesterol Direct HDL Cholesterol Hepatitis C Antibody Crossmatch 12/04/17 12/05/17 12/05/17 17:57 00:52 04:05 WBC RBC 2.96 L Hgb 7.7 L Hct 24.2 L MCV 82 L MCH 26 L MCHC RDW 18.8 H Plt Count 105 L Lymph % (Auto) 10.6 L [place] % (Auto) 12.1 H Eos % (Auto) 5.2 H Lymph # 1.1 L [place] # 1.3 H Eos # 0.5 H Seg Neutrophils % 71.3 H Seg Neuts % (Manual) Lymphocytes % (Manual) Monocytes % (Manual) Nucleated RBC % Seg Neutrophils # Seg Neutrophils # Man Lymphocytes # (Manual) Monocytes # (Manual) PT INR POC ABG pH POC ABG pCO2 POC ABG pO2 Sodium Potassium Chloride Carbon Dioxide BUN Creatinine Glucose POC Glucose 140 H 117 H Lactic Acid Calcium Magnesium AST ALT Alkaline Phosphatase Troponin T C-Reactive Protein Total Protein Albumin LDL Cholesterol Direct HDL Cholesterol Hepatitis C Antibody Crossmatch 12/05/17 12/05/17 04:05 22:50 WBC RBC Hgb Hct MCV MCH MCHC RDW Plt Count Lymph % (Auto) [place] % (Auto) Eos % (Auto) Lymph # [place] # Eos # Seg Neutrophils % Seg Neuts % (Manual) Lymphocytes % (Manual) Monocytes % (Manual) Nucleated RBC % Seg Neutrophils # Seg Neutrophils # Man Lymphocytes # (Manual) Monocytes # (Manual) PT INR POC ABG pH POC ABG pCO2 POC ABG pO2 Sodium Potassium Chloride 107.4 H Carbon Dioxide BUN Creatinine 2.5 H Glucose POC Glucose 112 H Lactic Acid Calcium 8.3 L Magnesium AST ALT Alkaline Phosphatase Troponin T C-Reactive Protein Total Protein Albumin LDL Cholesterol Direct HDL Cholesterol Hepatitis C Antibody Crossmatch
[2017-12-06 10:05] LABS: Hemoglobin 7.4 gm/dl (11.8-15.2); Mean Corpuscular HGB Conc 32 % (32-34); Mean Corpuscular Hemoglobin 27 pg (28-32); Mean Corpuscular Volume 82 fl (84-94); Platelet Count 125 K/mm3 (140-440); Red Cell Distribution Width 19.5 % (13.2-15.2)
[2017-12-06] MEDS: LOPRESSOR PO SCH ×2 (11:01→22:11)
[2017-12-06] MEDS: SODIUM CHLORIDE FLUSH SYRINGE 10 ML IV SCH ×2 (11:02→22:12)
[2017-12-06] MEDS: DIFLUCAN 200 MG/100 ML BAG IV SCH (11:02)
[2017-12-06] MEDS: MERREM 1,000 MG in NACL 0.9% 100 ML IV SCH (11:02)
[2017-12-06] MEDS: PROTONIX (nf) FEEDTUBE SCH ×2 (11:03→22:11)
--- NOTE | 2017-12-06 11:47 | Progress Note ---
Assessment and Plan - Patient Problems (1) Gastrostomy malfunction Current Visit: Yes Status: Acute Plan to address problem: Pt is stable. After reviewing the records, discussing the case with multiple attendings, and seeing the patient, it is clear that we do not have an acute perforation. Most likely, the PEG tube started to migrate out of position prior to 11/18 as evidenced by no PEG button seen on EGD and no obvious hole in the stomach. As the contrast is restricted to certain areas in the abdomen, the fluid is loculated. The "ascites" may be tube feeds and/or reactionary fluid. Regardless, patient is not showing signs of obvious peritonitis. In this case, it may be prudent to try placing a few drains in the abdomen to remove that largest collections. I have already discussed this case with Dr. Moreira who agreed to review the case and see if that was possible. The alternative would be to take the patient for an ex-lap and washout the abdomen. I'm concerned that there may be a lot of inflammatory changes in the abdomen which would put him at risk for bowel injuries from the procedure. Therefore, this will be our back-up plan if the drains do not resolve the problem. As for nutritional access , for now, I would recommend an NGT. I doubt he has an active leak, so there is no need to test the stomach prior to using it. I have explained this plan in detail to the daughter (Jannette) and the attendings from ICU, GI, and hospitalist service. All were in agreement. - 11/25/17 Initial Consult Pt appears stable. s/p dx lap and washout - 12/03 POD#3. Pt stable. WBC has come down nicely. Would still drain the two large intra-abdominal collections as they may be contributing to his inflammatory state (fevers). Will probably remove right lower drain tomorrow. Also, ok to advance tube feeds to goal. Please call with questions. Time=10min Subjective Date of service: 12/06/17 Patient Reports: Positive: other (no new issues) Objective Vital Signs - 12hr 12/05/17 12/06/17 12/06/17 23:50 00:00 01:00 Temperature Pulse Rate 102 H 101 H Respiratory 33 H 32 H Rate Blood Pressure 126/83 142/78 O2 Sat by Pulse 100 100 Oximetry O2 Sat by Pulse 100 Oximetry [ Assessment] 12/06/17 12/06/17 12/06/17 02:00 03:00 03:47 Temperature 101 F H Pulse Rate 104 H 108 H Respiratory 34 H 34 H Rate Blood Pressure 146/82 147/87 O2 Sat by Pulse 100 100 Oximetry O2 Sat by Pulse Oximetry [ Assessment] 12/06/17 12/06/17 12/06/17 04:00 04:29 04:45 Temperature 99.6 F Pulse Rate 95 H Respiratory 30 H Rate Blood Pressure 120/71 O2 Sat by Pulse 100 Oximetry O2 Sat by Pulse 100 Oximetry [ Assessment] 12/06/17 12/06/17 12/06/17 05:00 06:00 07:00 Temperature Pulse Rate 104 H 109 H 96 H Respiratory 15 35 H 32 H Rate Blood Pressure 136/78 136/78 110/64 O2 Sat by Pulse 97 98 96 Oximetry O2 Sat by Pulse Oximetry [ Assessment] 12/06/17 12/06/17 12/06/17 08:00 08:54 09:00 Temperature 100.4 F H Pulse Rate 97 H Respiratory 18 Rate Blood Pressure 140/85 121/70 O2 Sat by Pulse 97 99 100 Oximetry O2 Sat by Pulse 95 Oximetry [ Assessment] 12/06/17 12/06/17 10:00 11:00 Temperature Pulse Rate 100 H 99 H Respiratory 26 H 30 H Rate Blood Pressure 121/70 118/73 O2 Sat by Pulse 98 95 Oximetry O2 Sat by Pulse Oximetry [ Assessment] - General physical appearance no distress, no pain, other (not interactive. Eyes open. ) - Respiratory normal expansion, normal respiratory effort - Abdomen soft (softer today), not tender, not distended, not guarding, not rigid, surgical scars (dressings in place), other (drains with minimal output. LUQ drain does not appear as purulent anymore) - Integumentary no rash, no growths, no abnormal pigmentation - Labs 12/06/17 08:18 12/06/17 08:18 Diabetes panel 12/06/17 Range/Units 08:18 Sodium 145 (137-145) mmol/L Potassium 3.6 (3.6-5.0) mmol/L Chloride 108.4 H (98-107) mmol/L Carbon Dioxide 24 (22-30) mmol/L BUN 28 H (9-20) mg/dL Creatinine 3.7 H (0.8-1.5) mg/dL Glucose 103 H (75-100) mg/dL Calcium 8.0 L (8.4-10.2) mg/dL Calcium panel 12/06/17 Range/Units 08:18 Calcium 8.0 L (8.4-10.2) mg/dL Pituitary panel 12/06/17 Range/Units 08:18 Sodium 145 (137-145) mmol/L Potassium 3.6 (3.6-5.0) mmol/L Chloride 108.4 H (98-107) mmol/L Carbon Dioxide 24 (22-30) mmol/L BUN 28 H (9-20) mg/dL Creatinine 3.7 H (0.8-1.5) mg/dL Glucose 103 H (75-100) mg/dL Calcium 8.0 L (8.4-10.2) mg/dL Adrenal panel 12/06/17 Range/Units 08:18 Sodium 145 (137-145) mmol/L Potassium 3.6 (3.6-5.0) mmol/L Chloride 108.4 H (98-107) mmol/L Carbon Dioxide 24 (22-30) mmol/L BUN 28 H (9-20) mg/dL Creatinine 3.7 H (0.8-1.5) mg/dL Glucose 103 H (75-100) mg/dL Calcium 8.0 L (8.4-10.2) mg/dL
--- NOTE | 2017-12-06 12:09 | Progress Note ---
Assessment and Plan We'll plan on placement of drains within the midline upper abdominal fluid collection as well as perisplenic fluid collection tomorrow under CT guidance. Subjective Date of service: 12/06/17 Principal diagnosis: Acute hypoxic respiratory failure due to Pneumonia on MV> 96 hours s/p Trach Interval history: Patient with 2 additional large intra-abdominal fluid collections will need to be drained. Objective - Constitutional Vitals: Vital Signs - 12hr 12/06/17 12/06/17 12/06/17 01:00 02:00 03:00 Temperature Pulse Rate 101 H 104 H 108 H Respiratory 32 H 34 H 34 H Rate Blood Pressure 142/78 146/82 147/87 O2 Sat by Pulse 100 100 100 Oximetry O2 Sat by Pulse Oximetry [ Assessment] 12/06/17 12/06/17 12/06/17 03:47 04:00 04:29 Temperature 101 F H 99.6 F Pulse Rate 95 H Respiratory 30 H Rate Blood Pressure 120/71 O2 Sat by Pulse 100 Oximetry O2 Sat by Pulse Oximetry [ Assessment] 12/06/17 12/06/17 12/06/17 04:45 05:00 06:00 Temperature Pulse Rate 104 H 109 H Respiratory 15 35 H Rate Blood Pressure 136/78 136/78 O2 Sat by Pulse 97 98 Oximetry O2 Sat by Pulse 100 Oximetry [ Assessment] 12/06/17 12/06/17 12/06/17 07:00 08:00 08:54 Temperature 100.4 F H Pulse Rate 96 H Respiratory 32 H Rate Blood Pressure 110/64 140/85 O2 Sat by Pulse 96 97 99 Oximetry O2 Sat by Pulse 95 Oximetry [ Assessment] 12/06/17 12/06/17 12/06/17 09:00 10:00 11:00 Temperature Pulse Rate 97 H 100 H 99 H Respiratory 18 26 H 30 H Rate Blood Pressure 121/70 121/70 118/73 O2 Sat by Pulse 100 98 95 Oximetry O2 Sat by Pulse Oximetry [ Assessment] 12/06/17 12:00 Temperature 100.3 F H Pulse Rate Respiratory Rate Blood Pressure O2 Sat by Pulse Oximetry O2 Sat by Pulse Oximetry [ Assessment] General appearance: Present: other - Labs CBC & Chem 7: 12/06/17 08:18 12/06/17 08:18 Labs: Abnormal lab results 12/05/17 12/05/17 12/06/17 Range/Units 00:52 22:50 08:18 RBC 2.80 L (3.65-5.03) M/mm3 Hgb 7.4 L (11.8-15.2) gm/dl Hct 23.0 L (35.5-45.6) % MCV 82 L (84-94) fl MCH 27 L (28-32) pg RDW 19.5 H (13.2-15.2) % Plt Count 125 L (140-440) K/mm3 Chloride (98-107) mmol/L BUN (9-20) mg/dL Creatinine (0.8-1.5) mg/dL Glucose (75-100) mg/dL POC Glucose 117 H 112 H (70-105) Calcium (8.4-10.2) mg/dL 12/06/17 12/06/17 Range/Units 08:18 12:01 RBC (3.65-5.03) M/mm3 Hgb (11.8-15.2) gm/dl Hct (35.5-45.6) % MCV (84-94) fl MCH (28-32) pg RDW (13.2-15.2) % Plt Count (140-440) K/mm3 Chloride 108.4 H (98-107) mmol/L BUN 28 H (9-20) mg/dL Creatinine 3.7 H (0.8-1.5) mg/dL Glucose 103 H (75-100) mg/dL POC Glucose 106 H (70-105) Calcium 8.0 L (8.4-10.2) mg/dL
--- NOTE | 2017-12-06 12:54 | Progress Note ---
Assessment and Plan Assessment and plan: Peritonitis from dislodged peg tube -Status post drainage placement by IR and removed PEG tube on 11/22 -peritoneal Fluid positive for Enterobacter, Heather (non albicans) -Antibiotics managed by ID -s/p multiple intraabdominal drainages placed by IR and GS. Also had abdominal washout by GS -Repeat CT scan on 12/05/17 showed persistent abdominal collection of abscess/ fluid -For repeat drainage this week, probably on Thursday Acute on chronic respiratory failure with hypoxia -likely due to aspiration PNA -Status post tracheostomy, currently on T-piece -Pulmonology following Severe sepsis with shock likely secondary to aspiration pneumonia -Off IV pressors -Blood and sputum cultures negative Aspiration pneumonia with mucus plugging -treated with zosyn Acute kidney injury secondary to ATN -on Intermittent HD started on 11/23/17 -Creatinine level trended up today to 3.7, will continue to monitor -Nephrology following Anemia of acute loss secondary to gastric ulcer and gastritis -Status post EGD on 11/18/2017 -Status post blood transfusion -H/H trended down but stable, will monitor and continue transfusion as needed Acute encephalopathy, likely multifactorial -Will continue to monitor clinically -Prognosis is poor Hypernatremia -Resolved Hypokalemia -Resolved, will monitor Hypomagnesemia -Resolved status post repletion Oropharyngeal dysphagia -Status post PEG tube placement on 11/06, now removed -On tube feeding with dobhoff History of recent CVA -Not on aspirin due to recent bleed RT ICA stenosis -s/p recent endarterectomy Disposition: Patient overall prognosis remains poor. Continue management History Interval history: Patient is nonverbal. No overnight issues except for fever of 100.3 this a.m. Hospitalist Physical - Constitutional Vitals: Temp Pulse Resp BP Pulse Ox 100.3 F H 89 29 H 121/69 98 12/06/17 12:00 12/06/17 12:00 12/06/17 12:00 12/06/17 12:00 12/06/17 12:00 General appearance: Present: no acute distress, other - EENT Eyes: Present: PERRL, EOM intact ENT: clear oral mucosa, other (status post tracheostomy on T piece) - Neck Neck: Present: supple - Respiratory Respiratory effort: normal Respiratory: bilateral: CTA - Cardiovascular Rhythm: regular Heart Sounds: Present: S1 & S2 - Extremities Extremity abnormal: edema (in bilateral feet) - Abdominal General gastrointestinal: soft, non-tender, distended, normal bowel sounds, other (percutaneous drains noted) - Neurologic Neurologic: other (patient is awake but unable to follow commands) Results - Labs CBC & Chem 7: 12/06/17 08:18 12/06/17 08:18 Labs: Laboratory Last Values WBC 8.5 K/mm3 (4.5-11.0) 12/06/17 08:18 RBC 2.80 M/mm3 (3.65-5.03) L 12/06/17 08:18 Hgb 7.4 gm/dl (11.8-15.2) L 12/06/17 08:18 Hct 23.0 % (35.5-45.6) L 12/06/17 08:18 MCV 82 fl (84-94) L 12/06/17 08:18 MCH 27 pg (28-32) L 12/06/17 08:18 MCHC 32 % (32-34) 12/06/17 08:18 RDW 19.5 % (13.2-15.2) H 12/06/17 08:18 Plt Count 125 K/mm3 (140-440) L 12/06/17 08:18 Lymph % (Auto) 10.6 % (13.4-35.0) L 12/05/17 04:05 [place] % (Auto) 12.1 % (0.0-7.3) H 12/05/17 04:05 Eos % (Auto) 5.2 % (0.0-4.3) H 12/05/17 04:05 Baso % (Auto) 0.8 % (0.0-1.8) 12/05/17 04:05 Lymph # 1.1 K/mm3 (1.2-5.4) L 12/05/17 04:05 [place] # 1.3 K/mm3 (0.0-0.8) H 12/05/17 04:05 Eos # 0.5 K/mm3 (0.0-0.4) H 12/05/17 04:05 Baso # 0.1 K/mm3 (0.0-0.1) 12/05/17 04:05 Add Manual Diff Complete 11/24/17 05:42 Total Counted 100 11/24/17 05:42 Seg Neutrophils % 71.3 % (40.0-70.0) H 12/05/17 04:05 Seg Neuts % (Manual) 94.0 % (40.0-70.0) H 11/24/17 05:42 Band Neutrophils % 0 % 11/24/17 05:42 Lymphocytes % (Manual) 3.0 % (13.4-35.0) L 11/24/17 05:42 Reactive Lymphs % (Man) 0 % 11/24/17 05:42 Monocytes % (Manual) 3.0 % (0.0-7.3) 11/24/17 05:42 Eosinophils % (Manual) 0 % (0.0-4.3) 11/24/17 05:42 Basophils % (Manual) 0 % (0.0-1.8) 11/24/17 05:42 Metamyelocytes % 0 % 11/24/17 05:42 Myelocytes % 0 % 11/24/17 05:42 Promyelocytes % 0 % 11/24/17 05:42 Blast Cells % 0 % 11/24/17 05:42 Nucleated RBC % Not Reportable 11/24/17 05:42 Seg Neutrophils # 7.4 K/mm3 (1.8-7.7) 12/05/17 04:05 Seg Neutrophils # Man 20.2 K/mm3 (1.8-7.7) H 11/24/17 05:42 Band Neutrophils # 0.0 K/mm3 11/24/17 05:42 Lymphocytes # (Manual) 0.6 K/mm3 (1.2-5.4) L 11/24/17 05:42 Abs React Lymphs (Man) 0.0 K/mm3 11/24/17 05:42 Monocytes # (Manual) 0.6 K/mm3 (0.0-0.8) 11/24/17 05:42 Eosinophils # (Manual) 0.0 K/mm3 (0.0-0.4) 11/24/17 05:42 Basophils # (Manual) 0.0 K/mm3 (0.0-0.1) 11/24/17 05:42 Metamyelocytes # 0.0 K/mm3 11/24/17 05:42 Myelocytes # 0.0 K/mm3 11/24/17 05:42 Promyelocytes # 0.0 K/mm3 11/24/17 05:42 Blast Cells # 0.0 K/mm3 11/24/17 05:42 WBC Morphology Not Reportable 11/24/17 05:42 Hypersegmented Neuts Not Reportable 11/24/17 05:42 Hyposegmented Neuts Not Reportable 11/24/17 05:42 Hypogranular Neuts Not Reportable 11/24/17 05:42 Smudge Cells Not Reportable 11/24/17 05:42 Toxic Granulation Not Reportable 11/24/17 05:42 Toxic Vacuolation Not Reportable 11/24/17 05:42 Dohle Bodies Not Reportable 11/24/17 05:42 Pelger-Huet Anomaly Not Reportable 11/24/17 05:42 Evangelina Rods Not Reportable 11/24/17 05:42 Platelet Estimate Appears normal 11/24/17 05:42 Clumped Platelets Not Reportable 11/24/17 05:42 Plt Clumps, EDTA Not Reportable 11/24/17 05:42 Large Platelets Not Reportable 11/24/17 05:42 Giant Platelets Not Reportable 11/24/17 05:42 Platelet Satelliting Not Reportable 11/24/17 05:42 Plt Morphology Comment Not Reportable 11/24/17 05:42 RBC Morphology Not Reportable 11/24/17 05:42 Dimorphic RBCs Not Reportable 11/24/17 05:42 Polychromasia Not Reportable 11/24/17 05:42 Hypochromasia Not Reportable 11/24/17 05:42 Poikilocytosis Not Reportable 11/24/17 05:42 Anisocytosis Few 11/24/17 05:42 Microcytosis Not Reportable 11/24/17 05:42 Macrocytosis Not Reportable 11/24/17 05:42 Spherocytes Not Reportable 11/24/17 05:42 Pappenheimer Bodies Not Reportable 11/24/17 05:42 Sickle Cells Not Reportable 11/24/17 05:42 Target Cells Few 11/24/17 05:42 Tear Drop Cells Not Reportable 11/24/17 05:42 Ovalocytes Not Reportable 11/24/17 05:42 Stomatocytes Few 11/18/17 04:34 Helmet Cells Not Reportable 11/24/17 05:42 [place] Bodies Not Reportable 11/24/17 05:42 [place] Rings Not Reportable 11/24/17 05:42 [place] Cells Not Reportable 11/24/17 05:42 Bite Cells Not Reportable 11/24/17 05:42 Crenated Cell Not Reportable 11/24/17 05:42 Elliptocytes Not Reportable 11/24/17 05:42 Acanthocytes (Spur) Not Reportable 11/24/17 05:42 Rouleaux Not Reportable 11/24/17 05:42 Hemoglobin C Crystals Not Reportable 11/24/17 05:42 Schistocytes Not Reportable 11/24/17 05:42 Malaria parasites Not Reportable 11/24/17 05:42 [place] Bodies Not Reportable 11/24/17 05:42 Hem Pathologist Commnt No 11/24/17 05:42 PT 23.6 Sec. (12.2-14.9) H 11/26/17 06:29 INR 1.96 (0.87-1.13) H 11/26/17 06:29 APTT 33.8 Sec. (24.2-36.6) 11/26/17 06:29 POC ABG pH 7.505 (7.35-7.45) H 11/23/17 04:56 POC ABG pCO2 26.3 (35-45) L 11/23/17 04:56 POC ABG pO2 100 (80-105) 11/23/17 04:56 POC ABG HCO3 20.8 11/23/17 04:56 POC ABG Total CO2 22 11/23/17 04:56 POC ABG O2 Sat 98 11/23/17 04:56 POC ABG Base Excess -2 11/23/17 04:56 FiO2 30 % 11/23/17 04:56 Sodium 145 mmol/L (137-145) 12/06/17 08:18 Potassium 3.6 mmol/L (3.6-5.0) 12/06/17 08:18 Chloride 108.4 mmol/L (98-107) H 12/06/17 08:18 Carbon Dioxide 24 mmol/L (22-30) 12/06/17 08:18 Anion Gap 16 mmol/L 12/06/17 08:18 BUN 28 mg/dL (9-20) H 12/06/17 08:18 Creatinine 3.7 mg/dL (0.8-1.5) H 12/06/17 08:18 Estimated GFR 20 ml/min 12/06/17 08:18 BUN/Creatinine Ratio 8 % 12/06/17 08:18 Glucose 103 mg/dL (75-100) H 12/06/17 08:18 POC Glucose 106 (70-105) H 12/06/17 12:01 Lactic Acid 1.80 mmol/L (0.7-2.0) 11/27/17 04:06 Calcium 8.0 mg/dL (8.4-10.2) L 12/06/17 08:18 Magnesium 2.00 mg/dL (1.7-2.3) 11/24/17 21:53 Total Bilirubin 0.90 mg/dL (0.1-1.2) 11/24/17 21:53 AST 170 units/L (5-40) H 11/24/17 21:53 ALT 179 units/L (7-56) H 11/24/17 21:53 Alkaline Phosphatase 175 units/L (35-129) H 11/24/17 21:53 Total Creatine Kinase 84 units/L (55-170) 11/12/17 20:03 CK-MB (CK-2) < 1.0 ng/mL (0.0-4.0) 11/12/17 20:03 CK-MB (CK-2) Rel Index 1.1 (0-4) 11/12/17 20:03 Troponin T 0.098 ng/mL (0.00-0.029) H 11/12/17 Unknown C-Reactive Protein 25.70 mg/dL (0.00-1.30) H 11/11/17 23:20 NT-Pro-B Natriuret Pep 792.4 pg/mL (0-900) 11/11/17 23:20 Total Protein 5.5 g/dL (6.3-8.2) L 11/24/17 21:53 Albumin 1.8 g/dL (3.9-5) L 11/24/17 21:53 Albumin/Globulin Ratio 0.5 % 11/24/17 21:53 Triglycerides 86 mg/dL (2-149) 11/11/17 23:20 Cholesterol 82 mg/dL (50-199) 11/11/17 23:20 LDL Cholesterol Direct 42 mg/dL (50-130) L 11/11/17 23:20 HDL Cholesterol 24 mg/dL (40-59) L 11/11/17 23:20 Cholesterol/HDL Ratio 3.41 % 11/11/17 23:20 Lipase 30 units/L (13-60) 11/11/17 23:20 Urine Color Nicole (Yellow) 11/11/17 23:09 Urine Turbidity Cloudy (Clear) 11/11/17 23:09 Urine pH 5.0 (5.0-7.0) 11/11/17 23:09 Ur Specific [place] 1.025 (1.003-1.030) 11/11/17 23:09 Urine Protein 100 mg/dl mg/dL (Negative) 11/11/17 23:09 Urine Glucose (UA) 50 mg/dL (Negative) 11/11/17 23:09 Urine Ketones Neg mg/dL (Negative) 11/11/17 23:09 Urine Blood Neg (Negative) 11/11/17 23:09 Urine Nitrite Neg (Negative) 11/11/17 23:09 Urine Bilirubin Neg (Negative) 11/11/17 23:09 Urine Urobilinogen 4.0 mg/dL (<2.0) 11/11/17 23:09 Ur Leukocyte Esterase Neg (Negative) 11/11/17 23:09 Urine WBC (Auto) 5.0 /HPF (0.0-6.0) 11/11/17 23:09 Urine RBC (Auto) 4.0 /HPF (0.0-6.0) 11/11/17 23:09 Urine Bacteria (Auto) 3+ /HPF (Negative) 11/11/17 23:09 Amorphous Crystals 3+ 11/11/17 23:09 Hyaline Casts 76 /LPF 11/11/17 23:09 Urine Mucus 2+ /HPF 11/11/17 23:09 Hepatitis A IgM Ab Non-reactive (NonReactive) 11/22/17 19:45 Hep Bs Antigen Non-reactive (Negative) 11/22/17 19:45 Hep B Core IgM Ab Non-reactive (NonReactive) 11/22/17 19:45 Hepatitis C Antibody Reactive (NonReactive) A 11/22/17 19:45 Blood Type A POSITIVE 11/24/17 08:27 Antibody Screen Negative 11/24/17 08:27 Crossmatch See Detail 11/24/17 08:27
--- NOTE | 2017-12-06 13:13 | Progress Note ---
Assessment and Plan Assessment * Acute kidney injury secondary to ATN --Intermittent HD started on 11/23/17 * Sepsis secondary to peritonitis/PEG malpositioning --RUQ/LUQ drains: Enterobacter, Heather (non albicans) * Aspiration pneumonitis related to above * Anemia * Acute CVA * Carotid artery disease s/p CEA * Encephalopathy Plan: * No evidence of renal recovery * Continue HD MWF. UF as tolerated * Abx per ID * uf as tolerated with HD * IR and surgery notes reviewed * Strict I/O * Avoid potential nephrptoxins * Dose medications for renal function * Replete lytes prn * Avoid nephrotoxins Subjective Date of service: 12/06/17 Principal diagnosis: Acute hypoxic respiratory failure due to Pneumonia on MV> 96 hours s/p Trach Interval history: new consult noted, last seen 11/09 with normal renal function Objective - Exam Narrative Exam: Constitutional: lethargic, other (intubated) Eyes: non-icteric ENT: oropharynx moist, other (ETT at 24 cm) Neck: supple, no JVD Ascultation: Bilateral: rhonchi (bilateral LT >>RT) Cardiovascular: regular rate and rhythm, other (tachycardic) Gastrointestinal: normoactive bowel sounds, non-distended Integumentary: normal Extremities: no cyanosis, no edema, other (RT femoral line in place) Neurologic: unable to assess (opens eyes spontaneously but does not follow commands . ) - Vital Signs Vital signs: Vital Signs - 12hr 12/06/17 12/06/17 12/06/17 02:00 03:00 03:47 Temperature 101 F H Pulse Rate 104 H 108 H Respiratory 34 H 34 H Rate Blood Pressure 146/82 147/87 O2 Sat by Pulse 100 100 Oximetry O2 Sat by Pulse Oximetry [ Assessment] 12/06/17 12/06/17 12/06/17 04:00 04:29 04:45 Temperature 99.6 F Pulse Rate 95 H Respiratory 30 H Rate Blood Pressure 120/71 O2 Sat by Pulse 100 Oximetry O2 Sat by Pulse 100 Oximetry [ Assessment] 12/06/17 12/06/17 12/06/17 05:00 06:00 07:00 Temperature Pulse Rate 104 H 109 H 96 H Respiratory 15 35 H 32 H Rate Blood Pressure 136/78 136/78 110/64 O2 Sat by Pulse 97 98 96 Oximetry O2 Sat by Pulse Oximetry [ Assessment] 12/06/17 12/06/17 12/06/17 08:00 08:54 09:00 Temperature 100.4 F H Pulse Rate 97 H Respiratory 18 Rate Blood Pressure 140/85 121/70 O2 Sat by Pulse 97 99 100 Oximetry O2 Sat by Pulse 95 Oximetry [ Assessment] 12/06/17 12/06/17 12/06/17 10:00 11:00 12:00 Temperature 100.3 F H Pulse Rate 100 H 99 H 89 Respiratory 26 H 30 H 29 H Rate Blood Pressure 121/70 118/73 121/69 O2 Sat by Pulse 98 95 98 Oximetry O2 Sat by Pulse Oximetry [ Assessment] - Lab 12/06/17 08:18 12/06/17 08:18 Most recent lab results Calcium 8.0 mg/dL (8.4-10.2) L 12/06/17 08:18 Magnesium 2.00 mg/dL (1.7-2.3) 11/24/17 21:53
[2017-12-07 06:38] LABS: Hematocrit 22.8 % (35.5-45.6); Hemoglobin 7.3 gm/dl (11.8-15.2); Mean Corpuscular HGB Conc 32 % (32-34); Mean Corpuscular Hemoglobin 26 pg (28-32); Mean Corpuscular Volume 82 fl (84-94); Red Blood Count 2.79 M/mm3 (3.65-5.03); Red Cell Distribution Width 19.1 % (13.2-15.2)
[2017-12-07 07:23] LABS: Anisocytosis 1+; Band Neutrophils # (Manual) 0.3 K/mm3; Basophils % (Manual) 0 % (0.0-1.8); Hypochromasia 1+; Monocytes % (Manual) 0 % (0.0-7.3); Ovalocytes 1+; Stomatocytes Few; Target Cells Rare; Tear Drop Cells Rare; Total Cells Counted 100
[2017-12-07 07:24] LABS: Platelet Estimate Appears Decreased
[2017-12-07 07:29] LABS: Platelet Count 101 K/mm3 (140-440)
[2017-12-07] MEDS: DIFLUCAN 200 MG/100 ML BAG IV SCH (10:14)
[2017-12-07] MEDS: MERREM 1,000 MG in NACL 0.9% 100 ML IV SCH (10:14)
[2017-12-07] MEDS: PROTONIX (nf) FEEDTUBE SCH ×2 (10:15→23:09)
[2017-12-07] MEDS: SODIUM CHLORIDE FLUSH SYRINGE 10 ML IV SCH ×2 (10:15→23:10)
[2017-12-07] MEDS: LOPRESSOR PO SCH ×2 (10:15→23:09)
--- NOTE | 2017-12-07 11:13 | Progress Note ---
Subjective Principal diagnosis: Acute hypoxic respiratory failure due to Pneumonia on MV> 96 hours s/p Trach Interval history: Patient was seen today for follow-up of multiple renal related issues resting comfortably Interdisciplinary notes that also reviewed Events of 24 hours vitals labs intake output medications were reviewed Past medical history: Reviewed Family history: Reviewed Social history: Reviewed Allergies: Reviewed Physical examination: Vitals: Reviewed HEENT: No pallor or icterus oral mucosa moist Neck: Supple no JVD no thyromegaly Chest: Bilateral clear to auscultation anteriorly Heart: Regular rate and rhythm S1-S2 heard no S3-S4 Abdomen: Soft no voluntary guarding rigidity rebound Extremity: Dry skin less than 1+ peripheral edema Psychiatric: No evidence of agitation and aggression noted Dermatology: No petechial rashes Labs and x-rays: Reviewed from today Assessment and plan Acute kidney injury: Likely due to acute tubular necrosis patient initiated on renal replacement therapy, continue with hemodialysis for now on Thursday Patient urine output remains low Continue to monitor for renal function recovery, at this time Hemoglobin currently 7.2 platelet count 101,000 Potassium 3.9 BUN 36 creatinine 4.0 calcium 8.0 Renal ultrasonogram obtained November 20 shows that the kidneys are unremarkable Encephalopathy Likely etiology appears to be acute tubular necrosis due to sepsis, resulting from peritonitis Aspiration pneumonitis Status post acute CVA status post carotid endarterectomy We'll continue to follow and make recommendation for renal standpoint Objective - Vital Signs Vital signs: Vital Signs - 12hr 12/07/17 12/07/17 12/07/17 00:00 00:33 01:00 Temperature 99.3 F Pulse Rate 98 H 91 H Respiratory 24 29 H Rate Blood Pressure 118/70 117/74 O2 Sat by Pulse 100 99 100 Oximetry O2 Sat by Pulse Oximetry [ Assessment] 12/07/17 12/07/17 12/07/17 02:00 03:00 04:00 Temperature 98.3 F Pulse Rate 79 79 94 H Respiratory 25 H 24 23 Rate Blood Pressure 122/68 132/70 116/74 O2 Sat by Pulse 100 100 100 Oximetry O2 Sat by Pulse Oximetry [ Assessment] 12/07/17 12/07/17 12/07/17 04:22 05:00 06:00 Temperature Pulse Rate 87 99 H Respiratory 27 H 36 H Rate Blood Pressure 115/69 137/88 O2 Sat by Pulse 99 100 100 Oximetry O2 Sat by Pulse Oximetry [ Assessment] 12/07/17 12/07/17 12/07/17 07:00 08:00 08:10 Temperature 98.9 F Pulse Rate 94 H Respiratory 24 Rate Blood Pressure 133/83 O2 Sat by Pulse 100 100 Oximetry O2 Sat by Pulse Oximetry [ Assessment] 12/07/17 08:11 Temperature Pulse Rate Respiratory Rate Blood Pressure O2 Sat by Pulse Oximetry O2 Sat by Pulse 100 Oximetry [ Assessment] - Lab 12/07/17 05:47 12/07/17 05:47 Most recent lab results Calcium 8.0 mg/dL (8.4-10.2) L 12/07/17 05:47 Magnesium 2.00 mg/dL (1.7-2.3) 11/24/17 21:53
--- NOTE | 2017-12-07 12:22 | Progress Note ---
Assessment and Plan Assessment: 1) Sepsis with transient septic shock: new fever on 12/06, leukocytosis resolved . Etiology most likely PEG-associated intra-abdominal collection. CRP=25 2) VAP vs post-obstructive pneumonia (mucous mugging) -initial sputum 10/10 Klebsiella -sputum 11/12 usual respiratory estela -CXR showed increased perihilar alveolar density >RLL than LLL. -CTA showed complete atelectasis of the LLL with mediatinal shift to the left due to blockage of the left main bronchus by ETT. -repeat CT showed Loculated fluid collections noted along the bilateral paracolic gutters measuring approximately 4 x 8 cm in cross-sectional diameter and 13 cm in length on the right and 3.5 x 7 cm in cross-sectional diameter and 21 cm in length on the left, neither of which are in significant contiguity with catheters. Smaller, similar appearing fluid loculations in the mid and lower central mesentery both anterior and centrally, largest in the left paramedian supraumbilical region anteriorly measuring approximately 10 x 3 cm in cross-sectional diameter. Largest collection in the pelvis measures 11 x 13 cm in cross-sectional diameter and 2.5 cm in craniocaudal dimension. 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, placement of recent PEG tube with prolonged recent admission from 10/04-/11/10/17 4) Acute encephalopathy 5) Acute Respiratory failure 6) DARYA - on Intermittent HD started on 11/23/17 7) Hypernatremia 8) PEG-associated loculated intraabdominal collection s/p IR drainage 11/26 MDR Enterobacter and Heather non albicnas s/p OR lap partial wash out 12/03 +MDR Enterobacter resistant to cefepime Plan: -agree with meropenen -recheck blood cx if fever recurs -monitor fever -continue fluconazole -contact isolation -upon discharge will do meropenem 1 g IV q 24h and fluconazole 200 mg PO qday for 21 days until 12/23/17 -needs IV cath for daily meropenem Thank you for your consultation, will follow up with you. Olga Mercedes MD Infectious Diseases Specialist [facility] ([facility] M [phone] O [phone] Subjective Date of service: 12/07/17 Principal diagnosis: Acute hypoxic respiratory failure due to Pneumonia on MV> 96 hours s/p Trach Interval history: On T piece. No fever. Tmax 101. Microbiology: Blood cultures: 10/24 [employer] SAL[employer] REPRESENTATIVE 10/29 neg 11/10 neg 11/12 ngtd Urine cultures: Respiratory cultures: 10/10 Klebsiella 11/12 usual resp estela Peritonial cultures: 12/03 ngtd IR drainage 11/26 MDR Enterobacter and Heather not albicans OR drainage 12/03 MDR Enterobacter resistant to cefepime Current Antimicrobials: meropenem 12/06 fluconazole 11/29 Previous Antimicrobials: LevaquinZosyn 11/13 meropenem cefepime 12/02 Objective - Exam Narrative Exam: General appearance: alert on t-piece Eyes: anicteric sclerae, moist conjunctivae; no lid-lag; PERRLA HENT: Atraumatic; oropharynx+ETT +OGT Neck: Trachea midline; supple, no thyromegaly or lymphadenopathy Lungs: scattered rhonchi CV: rrr Abdomen: Soft, distended +PEG +3 drains with minimal purulence Extremities: winnie arms/legs edema Skin: Normal temperature, turgor and texture; no rash, ulcers or subcutaneous nodules Psych: sedated Neuro: sedated Lines: condom cath, left fem line - Constitutional Vitals: Vital Signs Temp Pulse Resp BP Pulse Ox 98.9 F 94 H 24 133/83 100 12/07/17 08:00 12/07/17 07:00 12/07/17 07:00 12/07/17 07:00 12/07/17 08:11 Temperature -Last 24 Hours Temperature 98.9 F Temperature 98.3 F Temperature 99.3 F Temperature 100 F Temperature 100.3 F - Labs CBC & Chem 7: 12/07/17 05:47 12/07/17 05:47 Labs: Abnormal lab results 12/06/17 12/07/17 12/07/17 Range/Units 23:58 05:47 05:47 RBC 2.79 L (3.65-5.03) M/mm3 Hgb 7.3 L (11.8-15.2) gm/dl Hct 22.8 L (35.5-45.6) % MCV 82 L (84-94) fl MCH 26 L (28-32) pg RDW 19.1 H (13.2-15.2) % Plt Count 101 L (140-440) K/mm3 Seg Neuts % (Manual) 72.0 H (40.0-70.0) % Lymphocytes % (Manual) 13.0 L (13.4-35.0) % Eosinophils % (Manual) 9.0 H (0.0-4.3) % Lymphocytes # (Manual) 1.1 L (1.2-5.4) K/mm3 Eosinophils # (Manual) 0.8 H (0.0-0.4) K/mm3 Sodium 146 H (137-145) mmol/L Chloride 109.8 H (98-107) mmol/L BUN 36 H (9-20) mg/dL Creatinine 4.0 H (0.8-1.5) mg/dL POC Glucose 108 H (70-105) Calcium 8.0 L (8.4-10.2) mg/dL
[2017-12-07] MEDS ORDERED: SUBLIMAZE IV ONE (12:27)
[2017-12-07] MEDS ORDERED: VERSED IV ONE (12:28)
[2017-12-07] MEDS ORDERED: SUBLIMAZE ONE (12:29)
[2017-12-07] MEDS ORDERED: XYLOCAINE 1% 20 mL ONE (12:47)
--- NOTE | 2017-12-07 13:45 | Event Note ---
Date: 12/07/17 Attempt to see patient and currently outside of his room on a procedure. We will evaluate at the next available opportunity.
--- NOTE | 2017-12-07 14:30 | Cat Scan Report ---
Exam: CT placement of 2 drainage catheters Clinical indication: Patient with a history of multiple intra-abdominal fluid collections incompletely drained Date: 12/07/2017 Procedure: Following explanation of the risks, benefits and alternatives; written informed consent was obtained. The patient was brought CT suite and placed supine position on the exam table. He was positioned with a wedge underneath his left side elevate the left upper flank fluid collection. Gauge Controller images of the abdomen were performed and an appropriate access site was chosen. The patient's left flank was prepped and draped in usual sterile fashion. 1% lidocaine was used for anesthesia. Using intermittent CT guidance, a 10 cm 17-gauge trocar needle was advanced into the fluid collection. There was prompt return of yellow cloudy fluid. A 0.035 guidewire was advanced and coiled within the fluid. Following serial dilation over the guidewire, 10 Ghanaian drainage catheter was placed over the guidewire and advanced into the fluid collection. 60 mL's of fluid were then aspirated and sent for laboratory analysis. The catheter was placed to ODALYS drainage. Catheter was secured to the skin surface using 2-0 silk suture and Stayfix device. A sterile dressing was applied. Attention was then turned to the midline upper abdominal fluid collection appearing additional leather production machine operator images were obtained an appropriate access site was chosen. The patient's anterior pelvic wall was prepped and draped in the usual sterile fashion. 1% lidocaine was used for anesthesia. Using a written CT guidance, a 10 cm 17-gauge trocar needle was advanced to the fluid collection. There is prompt return of yellow cloudy fluid. Is there was a guidewire was advanced and coiled within the fluid. Following serial dilation over the guidewire, a 10 Ghanaian drainage catheter was placed over the guidewire and advanced to position of pigtail within the central aspect of the fluid collection. The guidewire was removed. There was prompt return of yellow cloudy fluid. A total of 60 mL's of fluid was aspirated and sent for laboratory analysis. The catheter was placed to ODALYS drainage. The catheter was securely fastened to the skin surface using 2-0 silk suture and a Stayfix device. A sterile dressing was applied. The patient tolerated the procedure well. There were no immediate post procedure complications. Sedation was not utilized the patient is status. Continuous cardiopulmonary monitoring was utilized. Impression: 1) CT-guided placement of drainage catheters within an upper abdominal midline fluid collection and a perisplenic fluid collection. Samples of both were sent for laboratory analysis.
[2017-12-07] MEDS ORDERED: D50W (25GM) Vial IV PRN ×2 (14:54→15:14)
[2017-12-07] MEDS ORDERED: D50W (25GM) Syringe IV PRN (15:17)
--- NOTE | 2017-12-07 17:13 | Progress Note ---
Assessment and Plan Peritonitis from dislodged peg tube -Status post drainage placement by IR and removed PEG tube on 11/22 -peritoneal Fluid positive for Enterobacter, Heather (non albicans) -Antibiotic managed by ID -s/p multiple intraabdominal drainages placed by IR and GS. also had abdominal washout by GS -Repeat CT scan on 12/04 showed persistent abdominal collection of abscess/ fluid and plan for repeat drainage today by IR Acute on chronic respiratory failure with hypoxia - likely due to aspiratin and PNA -Status post tracheostomy, currently on T-piece -Pulmonology following Severe sepsis with shock likely secondary to aspiration pneumonia -Off IV pressors -Blood and sputum cultures negative Aspiration pneumonia with mucus plugging -treated with zosyn Acute kidney injury secondary to ATN -on Intermittent HD started on 11/23/17 -Creatinine level improved -Nephrology following Anemia of acute loss secondary to gastric ulcer and gastritis -Status post EGD on 11/18/2017 -Status post blood transfusion -H/H stable, will monitor Acute encephalopathy, likely multifactorial -Will continue to monitor clinically -Prognosis is poor Hypernatremia -Resolved Hypokalemia -We cont to monitor level and replete as needed Hypomagnesemia -Resolved status post repletion Oropharyngeal dysphagia -Status post PEG tube placement on 11/06, now removed -On tube feeding with dobhoff History of recent CVA -Not on aspirin due to recent bleed RT ICA stenosis -s/p recent endarterectomy Disposition: Patient overall prognosis remains poor. Continue management Brief History 67yo M with history CVA, a PEG tube placed by GI on 11/06 presented (11/12) from rehab for respiratory failure, sepsis, hypotension and multilober PNA. Recent work-up for hypotension showed a dislodged PEG tube on CT scan with extraluminal PO contrast that was limited to the upper abdomen and left gutter. Pt had an EGD on 11/18 that did not show the PEG button or an obvious hole in the stomach. There was no free air noted on CXR's. Pt had IR guided drainage placed in the 3 different locations of abdomen. He is now s/p trach by ENT. Recent Ct abdoemn/pelvis on 12/04/17 showed persistent abdominal collection of abscess/fluid and plan for repeat drainage today. Hospitalist Physical General appearance: Present: no acute distress - EENT Eyes: Present: PERRL ENT: clear oral mucosa - Neck Neck: Present: supple, other (status post tracheostomy on T-piece) - Respiratory Respiratory effort: normal Respiratory: bilateral: CTA - Cardiovascular Rhythm: other (tachycardia) Heart Sounds: Present: S1 & S2 - Extremities Extremity abnormal: edema (in BLE) - Abdominal General gastrointestinal: non-distended, distended, normal bowel sounds, other ( firm on palpation), total [address] - Neurologic Neurologic: other (patient is awake but unable to follow commands) Subjective Date of service: 12/07/17 Principal diagnosis: Acute hypoxic respiratory failure due to Pneumonia on MV> 96 hours s/p Trach Interval history: Pt seen and examined, nonverbal No acute event reported by RN discussed plan of care with RN at bedside Objective - Constitutional Vitals: Vital Signs - 12hr 12/07/17 12/07/17 12/07/17 06:00 07:00 08:00 Temperature 98.9 F Pulse Rate 99 H 94 H Pulse Rate [ Intra-Procedure ] Pulse Rate [ Post-Procedure] Pulse Rate [Pre -Procedure] Pulse Rate [ 88 Right From Monitor] Respiratory 36 H 24 18 Rate Respiratory Rate [Intra- Procedure] Respiratory Rate [Post- Procedure] Respiratory Rate [Pre- Procedure] Blood Pressure 137/88 133/83 Blood Pressure [Intra- Procedure] Blood Pressure [Post-Procedure ] Blood Pressure [Pre-Procedure] O2 Sat by Pulse 100 100 100 Oximetry O2 Sat by Pulse Oximetry [ Assessment] O2 Sat by Pulse Oximetry [ Intra-Procedure ] O2 Sat by Pulse Oximetry [Post -Procedure] O2 Sat by Pulse Oximetry [Pre- Procedure] 12/07/17 12/07/17 12/07/17 08:01 08:10 08:11 Temperature Pulse Rate 102 H Pulse Rate [ Intra-Procedure ] Pulse Rate [ Post-Procedure] Pulse Rate [Pre -Procedure] Pulse Rate [ Right From Monitor] Respiratory 34 H Rate Respiratory Rate [Intra- Procedure] Respiratory Rate [Post- Procedure] Respiratory Rate [Pre- Procedure] Blood Pressure 153/91 Blood Pressure [Intra- Procedure] Blood Pressure [Post-Procedure ] Blood Pressure [Pre-Procedure] O2 Sat by Pulse 100 100 Oximetry O2 Sat by Pulse 100 Oximetry [ Assessment] O2 Sat by Pulse Oximetry [ Intra-Procedure ] O2 Sat by Pulse Oximetry [Post -Procedure] O2 Sat by Pulse Oximetry [Pre- Procedure] 12/07/17 12/07/17 12/07/17 09:00 10:00 11:00 Temperature Pulse Rate 88 92 H 93 H Pulse Rate [ Intra-Procedure ] Pulse Rate [ Post-Procedure] Pulse Rate [Pre -Procedure] Pulse Rate [ Right From Monitor] Respiratory 27 H 24 29 H Rate Respiratory Rate [Intra- Procedure] Respiratory Rate [Post- Procedure] Respiratory Rate [Pre- Procedure] Blood Pressure 153/91 122/82 129/77 Blood Pressure [Intra- Procedure] Blood Pressure [Post-Procedure ] Blood Pressure [Pre-Procedure] O2 Sat by Pulse 97 100 100 Oximetry O2 Sat by Pulse Oximetry [ Assessment] O2 Sat by Pulse Oximetry [ Intra-Procedure ] O2 Sat by Pulse Oximetry [Post -Procedure] O2 Sat by Pulse Oximetry [Pre- Procedure] 12/07/17 12/07/17 12/07/17 12:00 13:00 13:07 Temperature Pulse Rate 101 H Pulse Rate [ 104 H Intra-Procedure ] Pulse Rate [ Post-Procedure] Pulse Rate [Pre 103 H -Procedure] Pulse Rate [ 96 H Right From Monitor] Respiratory 16 Rate Respiratory 34 H Rate [Intra- Procedure] Respiratory Rate [Post- Procedure] Respiratory 31 H Rate [Pre- Procedure] Blood Pressure 118/71 Blood Pressure 125/79 [Intra- Procedure] Blood Pressure [Post-Procedure ] Blood Pressure 144/88 [Pre-Procedure] O2 Sat by Pulse 98 Oximetry O2 Sat by Pulse Oximetry [ Assessment] O2 Sat by Pulse 99 Oximetry [ Intra-Procedure ] O2 Sat by Pulse Oximetry [Post -Procedure] O2 Sat by Pulse 100 Oximetry [Pre- Procedure] 12/07/17 12/07/17 12/07/17 13:11 13:14 13:20 Temperature Pulse Rate Pulse Rate [ 95 H 95 H 98 H Intra-Procedure ] Pulse Rate [ Post-Procedure] Pulse Rate [Pre -Procedure] Pulse Rate [ Right From Monitor] Respiratory Rate Respiratory 35 H 34 H 34 H Rate [Intra- Procedure] Respiratory Rate [Post- Procedure] Respiratory Rate [Pre- Procedure] Blood Pressure Blood Pressure 126/77 124/73 148/78 [Intra- Procedure] Blood Pressure [Post-Procedure ] Blood Pressure [Pre-Procedure] O2 Sat by Pulse Oximetry O2 Sat by Pulse Oximetry [ Assessment] O2 Sat by Pulse 97 97 100 Oximetry [ Intra-Procedure ] O2 Sat by Pulse Oximetry [Post -Procedure] O2 Sat by Pulse Oximetry [Pre- Procedure] 12/07/17 12/07/17 12/07/17 13:23 13:26 13:29 Temperature Pulse Rate Pulse Rate [ 105 H 100 H Intra-Procedure ] Pulse Rate [ 101 H Post-Procedure] Pulse Rate [Pre -Procedure] Pulse Rate [ Right From Monitor] Respiratory Rate Respiratory 34 H 29 H Rate [Intra- Procedure] Respiratory 29 H Rate [Post- Procedure] Respiratory Rate [Pre- Procedure] Blood Pressure Blood Pressure 148/86 140/81 [Intra- Procedure] Blood Pressure 145/88 [Post-Procedure ] Blood Pressure [Pre-Procedure] O2 Sat by Pulse Oximetry O2 Sat by Pulse Oximetry [ Assessment] O2 Sat by Pulse 100 100 Oximetry [ Intra-Procedure ] O2 Sat by Pulse 100 Oximetry [Post -Procedure] O2 Sat by Pulse Oximetry [Pre- Procedure] 12/07/17 12/07/17 12/07/17 13:32 13:35 13:38 Temperature Pulse Rate Pulse Rate [ Intra-Procedure ] Pulse Rate [ 104 H 106 H 108 H Post-Procedure] Pulse Rate [Pre -Procedure] Pulse Rate [ Right From Monitor] Respiratory Rate Respiratory Rate [Intra- Procedure] Respiratory 30 H 33 H 31 H Rate [Post- Procedure] Respiratory Rate [Pre- Procedure] Blood Pressure Blood Pressure [Intra- Procedure] Blood Pressure 145/87 143/89 147/85 [Post-Procedure ] Blood Pressure [Pre-Procedure] O2 Sat by Pulse Oximetry O2 Sat by Pulse Oximetry [ Assessment] O2 Sat by Pulse Oximetry [ Intra-Procedure ] O2 Sat by Pulse 100 100 100 Oximetry [Post -Procedure] O2 Sat by Pulse Oximetry [Pre- Procedure] 12/07/17 12/07/17 12/07/17 13:45 14:05 14:15 Temperature Pulse Rate 103 H Pulse Rate [ Intra-Procedure ] Pulse Rate [ 100 H Post-Procedure] Pulse Rate [Pre -Procedure] Pulse Rate [ Right From Monitor] Respiratory 22 Rate Respiratory Rate [Intra- Procedure] Respiratory 31 H Rate [Post- Procedure] Respiratory Rate [Pre- Procedure] Blood Pressure 107/68 Blood Pressure [Intra- Procedure] Blood Pressure 147/91 [Post-Procedure ] Blood Pressure [Pre-Procedure] O2 Sat by Pulse 100 Oximetry O2 Sat by Pulse 100 Oximetry [ Assessment] O2 Sat by Pulse Oximetry [ Intra-Procedure ] O2 Sat by Pulse 99 Oximetry [Post -Procedure] O2 Sat by Pulse Oximetry [Pre- Procedure] 12/07/17 12/07/17 12/07/17 15:00 15:58 16:00 Temperature 98.9 F 98.9 F Pulse Rate 95 H 88 Pulse Rate [ Intra-Procedure ] Pulse Rate [ Post-Procedure] Pulse Rate [Pre -Procedure] Pulse Rate [ Right From Monitor] Respiratory 28 H 26 H Rate Respiratory Rate [Intra- Procedure] Respiratory Rate [Post- Procedure] Respiratory Rate [Pre- Procedure] Blood Pressure 111/34 90/34 Blood Pressure [Intra- Procedure] Blood Pressure [Post-Procedure ] Blood Pressure [Pre-Procedure] O2 Sat by Pulse 100 100 Oximetry O2 Sat by Pulse Oximetry [ Assessment] O2 Sat by Pulse Oximetry [ Intra-Procedure ] O2 Sat by Pulse Oximetry [Post -Procedure] O2 Sat by Pulse Oximetry [Pre- Procedure] 12/07/17 17:00 Temperature Pulse Rate 113 H Pulse Rate [ Intra-Procedure ] Pulse Rate [ Post-Procedure] Pulse Rate [Pre -Procedure] Pulse Rate [ Right From Monitor] Respiratory 39 H Rate Respiratory Rate [Intra- Procedure] Respiratory Rate [Post- Procedure] Respiratory Rate [Pre- Procedure] Blood Pressure 105/63 Blood Pressure [Intra- Procedure] Blood Pressure [Post-Procedure ] Blood Pressure [Pre-Procedure] O2 Sat by Pulse 98 Oximetry O2 Sat by Pulse Oximetry [ Assessment] O2 Sat by Pulse Oximetry [ Intra-Procedure ] O2 Sat by Pulse Oximetry [Post -Procedure] O2 Sat by Pulse Oximetry [Pre- Procedure] - Labs CBC & Chem 7: 12/08/17 05:10 12/08/17 05:10 Labs: Abnormal lab results 12/06/17 12/07/17 12/07/17 Range/Units 23:58 05:47 05:47 RBC 2.79 L (3.65-5.03) M/mm3 Hgb 7.3 L (11.8-15.2) gm/dl Hct 22.8 L (35.5-45.6) % MCV 82 L (84-94) fl MCH 26 L (28-32) pg RDW 19.1 H (13.2-15.2) % Plt Count 101 L (140-440) K/mm3 Seg Neuts % (Manual) 72.0 H (40.0-70.0) % Lymphocytes % (Manual) 13.0 L (13.4-35.0) % Eosinophils % (Manual) 9.0 H (0.0-4.3) % Lymphocytes # (Manual) 1.1 L (1.2-5.4) K/mm3 Eosinophils # (Manual) 0.8 H (0.0-0.4) K/mm3 Sodium 146 H (137-145) mmol/L Chloride 109.8 H (98-107) mmol/L BUN 36 H (9-20) mg/dL Creatinine 4.0 H (0.8-1.5) mg/dL POC Glucose 108 H (70-105) Calcium 8.0 L (8.4-10.2) mg/dL
[2017-12-07] MEDS ORDERED: PROCRIT ONE (19:55)
[2017-12-07] MEDS: PROCRIT IV PRN (19:56)
[2017-12-07] MEDS: D5NS 1,000 ML IV SCH (20:19)
[2017-12-08 05:51] LABS: Hematocrit 24.4 % (35.5-45.6); Hemoglobin 7.5 gm/dl (11.8-15.2); Mean Corpuscular HGB Conc 31 % (32-34); Mean Corpuscular Volume 84 fl (84-94); Platelet Count 109 K/mm3 (140-440); Red Blood Count 2.91 M/mm3 (3.65-5.03); Red Cell Distribution Width 19.7 % (13.2-15.2)
[2017-12-08 05:57] LABS: Calcium 7.8 mg/dL (8.4-10.2)
[2017-12-08 05:59] LABS: Mean Corpuscular Hemoglobin 26 pg (28-32)
[2017-12-08 07:23] LABS: Band Neutrophils # (Manual) 0.2 K/mm3; Basophils % (Manual) 0 % (0.0-1.8); Total Cells Counted 100
[2017-12-08 07:24] LABS: Anisocytosis 1+; Hypochromasia 1+; Ovalocytes 1+; Platelet Estimate Appears Decreased; Stomatocytes Few; Tear Drop Cells Rare
--- NOTE | 2017-12-08 08:56 | Progress Note ---
Subjective Principal diagnosis: Acute hypoxic respiratory failure due to Pneumonia on MV> 96 hours s/p Trach Interval history: Patient was seen today for follow-up of multiple renal related issues Resting comfortably in bed in no acute distress overall health is not very good met with the surgical attending Currently on tube feeding Events of 24 hours vitals labs intake output medications were reviewed Past medical history: Reviewed Family history: Reviewed Social history: Reviewed Allergies: Reviewed Physical examination: General: Frail-appearing male, encephalopathic Vitals: Reviewed HEENT: No pallor or icterus oral mucosa moist Neck: Supple no JVD no thyromegaly Chest: Bilateral clear to auscultation anteriorly Heart: Regular rate and rhythm S1-S2 heard no S3-S4 Abdomen: Soft no voluntary guarding rigidity rebound, drain in place Extremity: Dry skin less than 1+ peripheral edema Psychiatric: No evidence of agitation and aggression noted Dermatology: No petechial rashes Labs and x-rays: Reviewed from today Assessment and plan Acute kidney injury: Likely due to acute tubular necrosis patient initiated on renal replacement therapy, continue with hemodialysis for now on Thursday Kidney ultrasonogram November 20: Unremarkable,Hepatitis C positive Encephalopathy: Toxic metabolic, vascular insult acute CVA status post endarterectomy Continue with renal replacement therapy for now Appointment nephrotoxic medication Patient is 67-year-old with multiple comorbidities His prognosis appears to be guarded at this time Renal prognosis appears to be poor given his age and the severity of renal dysfunction We'll continue to follow and make recommendation for renal standpoint Objective - Vital Signs Vital signs: Vital Signs - 12hr 12/07/17 12/07/17 12/07/17 21:00 22:00 22:09 Temperature Pulse Rate 102 H 100 H Pulse Rate [ Right From Monitor] Respiratory 32 H 31 H Rate Blood Pressure 110/70 125/75 O2 Sat by Pulse 98 100 Oximetry O2 Sat by Pulse 100 Oximetry [ Assessment] 12/07/17 12/07/17 12/07/17 23:00 23:11 23:34 Temperature 98.8 F Pulse Rate 93 H 108 H Pulse Rate [ Right From Monitor] Respiratory 31 H 13 Rate Blood Pressure 116/69 123/76 O2 Sat by Pulse 100 100 Oximetry O2 Sat by Pulse Oximetry [ Assessment] 12/07/17 12/08/17 12/08/17 23:46 00:00 01:00 Temperature Pulse Rate 94 H 110 H Pulse Rate [ Right From Monitor] Respiratory 23 25 H Rate Blood Pressure 115/65 139/77 O2 Sat by Pulse 99 100 100 Oximetry O2 Sat by Pulse Oximetry [ Assessment] 12/08/17 12/08/17 12/08/17 02:00 03:00 04:00 Temperature 98.2 F Pulse Rate 100 H 100 H 101 H Pulse Rate [ Right From Monitor] Respiratory 28 H 29 H 26 H Rate Blood Pressure 124/69 139/79 117/64 O2 Sat by Pulse 100 100 99 Oximetry O2 Sat by Pulse Oximetry [ Assessment] 12/08/17 12/08/17 12/08/17 05:00 06:00 07:00 Temperature Pulse Rate 100 H 98 H 90 Pulse Rate [ Right From Monitor] Respiratory 18 22 28 H Rate Blood Pressure 133/69 149/85 123/68 O2 Sat by Pulse 100 100 100 Oximetry O2 Sat by Pulse Oximetry [ Assessment] 12/08/17 12/08/17 12/08/17 07:57 07:59 08:00 Temperature 99.2 F 99.2 F Pulse Rate 102 H Pulse Rate [ 99 H Right From Monitor] Respiratory 24 27 H Rate Blood Pressure 146/78 O2 Sat by Pulse 99 99 Oximetry O2 Sat by Pulse Oximetry [ Assessment] - Lab 12/08/17 05:10 12/08/17 05:10 Most recent lab results Calcium 7.8 mg/dL (8.4-10.2) L 12/08/17 05:10 Magnesium 2.00 mg/dL (1.7-2.3) 11/24/17 21:53
[2017-12-08] MEDS: D5NS 1,000 ML IV SCH ×2 (09:49→23:56)
[2017-12-08] MEDS: MERREM 1,000 MG in NACL 0.9% 100 ML IV SCH (09:50)
[2017-12-08] MEDS: DIFLUCAN 200 MG/100 ML BAG IV SCH (09:50)
[2017-12-08] MEDS: PROTONIX (nf) FEEDTUBE SCH ×2 (10:19→22:11)
[2017-12-08] MEDS: LOPRESSOR PO SCH ×2 (10:19→22:11)
--- NOTE | 2017-12-08 10:54 | Progress Note ---
Assessment and Plan - Patient Problems (1) Gastrostomy malfunction Current Visit: Yes Status: Acute Plan to address problem: Pt is stable. After reviewing the records, discussing the case with multiple attendings, and seeing the patient, it is clear that we do not have an acute perforation. Most likely, the PEG tube started to migrate out of position prior to 11/18 as evidenced by no PEG button seen on EGD and no obvious hole in the stomach. As the contrast is restricted to certain areas in the abdomen, the fluid is loculated. The "ascites" may be tube feeds and/or reactionary fluid. Regardless, patient is not showing signs of obvious peritonitis. In this case, it may be prudent to try placing a few drains in the abdomen to remove that largest collections. I have already discussed this case with Dr. Moreira who agreed to review the case and see if that was possible. The alternative would be to take the patient for an ex-lap and washout the abdomen. I'm concerned that there may be a lot of inflammatory changes in the abdomen which would put him at risk for bowel injuries from the procedure. Therefore, this will be our back-up plan if the drains do not resolve the problem. As for nutritional access , for now, I would recommend an NGT. I doubt he has an active leak, so there is no need to test the stomach prior to using it. I have explained this plan in detail to the daughter (Jannette) and the attendings from ICU, GI, and hospitalist service. All were in agreement. - 11/25/17 Initial Consult Pt appears stable. s/p dx lap and washout - 12/03 POD#5. Pt stable. WBC has come down nicely. Appreciate IR help with further drain placements. Removed the right sided drains as output was minimal to none and what had come out was serous. The CT should improvement in those fluid collections. Testing the drains showed the upper one to be occluded and the lower one was not draining anymore fluid with multiple attempts at flushing and aspiration. Would leave surgical incisions open to air. Also, ok to advance tube feeds to goal. Please call with questions. Will follow along peripherally. Time=10min Subjective Date of service: 12/08/17 Patient Reports: Positive: other (no events o/n. 2 new drains placed yesterday) Objective Vital Signs - 12hr 12/07/17 12/07/17 12/07/17 23:00 23:11 23:34 Temperature 98.8 F Pulse Rate 93 H 108 H Pulse Rate [ Right From Monitor] Respiratory 31 H 13 Rate Blood Pressure 116/69 123/76 O2 Sat by Pulse 100 100 Oximetry O2 Sat by Pulse Oximetry [ Assessment] 12/07/17 12/08/17 12/08/17 23:46 00:00 01:00 Temperature Pulse Rate 94 H 110 H Pulse Rate [ Right From Monitor] Respiratory 23 25 H Rate Blood Pressure 115/65 139/77 O2 Sat by Pulse 99 100 100 Oximetry O2 Sat by Pulse Oximetry [ Assessment] 12/08/17 12/08/17 12/08/17 02:00 03:00 04:00 Temperature 98.2 F Pulse Rate 100 H 100 H 101 H Pulse Rate [ Right From Monitor] Respiratory 28 H 29 H 26 H Rate Blood Pressure 124/69 139/79 117/64 O2 Sat by Pulse 100 100 99 Oximetry O2 Sat by Pulse Oximetry [ Assessment] 12/08/17 12/08/17 12/08/17 05:00 06:00 07:00 Temperature Pulse Rate 100 H 98 H 90 Pulse Rate [ Right From Monitor] Respiratory 18 22 28 H Rate Blood Pressure 133/69 149/85 123/68 O2 Sat by Pulse 100 100 100 Oximetry O2 Sat by Pulse Oximetry [ Assessment] 12/08/17 12/08/17 12/08/17 07:57 07:59 08:00 Temperature 99.2 F 99.2 F Pulse Rate 102 H Pulse Rate [ 99 H Right From Monitor] Respiratory 24 27 H Rate Blood Pressure 146/78 O2 Sat by Pulse 99 99 Oximetry O2 Sat by Pulse 100 Oximetry [ Assessment] 12/08/17 12/08/17 12/08/17 09:00 09:01 10:00 Temperature Pulse Rate 100 H 93 H Pulse Rate [ Right From Monitor] Respiratory 35 H 28 H Rate Blood Pressure 140/75 123/68 O2 Sat by Pulse 100 100 99 Oximetry O2 Sat by Pulse Oximetry [ Assessment] - General physical appearance no distress, no pain, other (not interactive) - Respiratory normal expansion, normal respiratory effort - Abdomen soft, not tender, not distended, surgical scars (C/D/I. Right sided drains with minimal serous output. both easily removed. ) - Labs 12/08/17 05:10 09/18/18 05:10 Diabetes panel 12/08/17 Range/Units 05:10 Sodium 147 H (137-145) mmol/L Potassium 4.2 (3.6-5.0) mmol/L Chloride 110.4 H (98-107) mmol/L Carbon Dioxide 24 (22-30) mmol/L BUN 20 (9-20) mg/dL Creatinine 2.8 H (0.8-1.5) mg/dL Glucose 100 (75-100) mg/dL Calcium 7.8 L (8.4-10.2) mg/dL Calcium panel 12/08/17 Range/Units 05:10 Calcium 7.8 L (8.4-10.2) mg/dL Pituitary panel 12/08/17 Range/Units 05:10 Sodium 147 H (137-145) mmol/L Potassium 4.2 (3.6-5.0) mmol/L Chloride 110.4 H (98-107) mmol/L Carbon Dioxide 24 (22-30) mmol/L BUN 20 (9-20) mg/dL Creatinine 2.8 H (0.8-1.5) mg/dL Glucose 100 (75-100) mg/dL Calcium 7.8 L (8.4-10.2) mg/dL Adrenal panel 12/08/17 Range/Units 05:10 Sodium 147 H (137-145) mmol/L Potassium 4.2 (3.6-5.0) mmol/L Chloride 110.4 H (98-107) mmol/L Carbon Dioxide 24 (22-30) mmol/L BUN 20 (9-20) mg/dL Creatinine 2.8 H (0.8-1.5) mg/dL Glucose 100 (75-100) mg/dL Calcium 7.8 L (8.4-10.2) mg/dL
--- NOTE | 2017-12-08 13:12 | Progress Note ---
Assessment and Plan Acute respiratory failure. GI bleeding. Peptic ulcer on EDG. Sepsis,post PEG related spillage or peritonitis.Multiple drainages in plase. reviewed with at the bedside,improved drainage today AMS. Probably combination of sepsis, metabolic encephalopathy from prior brain injury Stroke Acute kidney injury. Worsening creatinine Recommendations Continue ABX Drainage,surgery care Nebs as needed for chest congestion Aspiration precautions DVT prophylaxis Subjective Date of service: 12/08/17 Principal diagnosis: Acute hypoxic respiratory failure, s/p Trach Interval history: Somnolent Objective Vital Signs - 12hr 12/08/17 12/08/17 12/08/17 02:00 03:00 04:00 Temperature 98.2 F Pulse Rate 100 H 100 H 101 H Pulse Rate [ Right From Monitor] Respiratory 28 H 29 H 26 H Rate Blood Pressure 124/69 139/79 117/64 O2 Sat by Pulse 100 100 99 Oximetry O2 Sat by Pulse Oximetry [ Assessment] 12/08/17 12/08/17 12/08/17 05:00 06:00 07:00 Temperature Pulse Rate 100 H 98 H 90 Pulse Rate [ Right From Monitor] Respiratory 18 22 28 H Rate Blood Pressure 133/69 149/85 123/68 O2 Sat by Pulse 100 100 100 Oximetry O2 Sat by Pulse Oximetry [ Assessment] 12/08/17 12/08/17 12/08/17 07:57 07:59 08:00 Temperature 99.2 F 99.2 F Pulse Rate 102 H Pulse Rate [ 99 H Right From Monitor] Respiratory 24 27 H Rate Blood Pressure 146/78 O2 Sat by Pulse 99 99 Oximetry O2 Sat by Pulse 100 Oximetry [ Assessment] 12/08/17 12/08/17 12/08/17 09:00 09:01 10:00 Temperature Pulse Rate 100 H 93 H Pulse Rate [ Right From Monitor] Respiratory 35 H 28 H Rate Blood Pressure 140/75 123/68 O2 Sat by Pulse 100 100 99 Oximetry O2 Sat by Pulse Oximetry [ Assessment] 12/08/17 12:00 Temperature 99.1 F Pulse Rate Pulse Rate [ Right From Monitor] Respiratory Rate Blood Pressure O2 Sat by Pulse Oximetry O2 Sat by Pulse Oximetry [ Assessment] Constitutional: other (s/p trach ) Eyes: non-icteric ENT: oropharynx moist Neck: supple (Number 8 perc trach, midline and stable), no JVD Effort: normal Ascultation: Bilateral: rhonchi (sporadic) Cardiovascular: regular rate and rhythm (no mrg) Gastrointestinal: normoactive bowel sounds, soft, non-tender, other (drainages in place) Integumentary: normal Extremities: no cyanosis, pink and warm, anasarca Neurologic: other (L hemiparesis) CBC and BMP: 12/09/17 04:18 12/09/17 04:18 ABG, PT/INR, D-dimer: ABG POC ABG pH 7.505 (7.35-7.45) H 11/23/17 04:56 POC ABG pCO2 26.3 (35-45) L 11/23/17 04:56 POC ABG pO2 100 (80-105) 11/23/17 04:56 POC ABG HCO3 20.8 11/23/17 04:56 POC ABG Total CO2 22 11/23/17 04:56 POC ABG O2 Sat 98 11/23/17 04:56 PT/INR, D-dimer PT 23.6 Sec. (12.2-14.9) H 11/26/17 06:29 INR 1.96 (0.87-1.13) H 11/26/17 06:29 Abnormal lab findings: Abnormal Labs 11/11/17 11/11/17 11/11/17 23:18 23:20 23:20 WBC RBC Hgb 10.4 L Hct 32.6 L D MCV MCH 27 L MCHC RDW 17.4 H Plt Count 105 L Lymph % (Auto) [place] % (Auto) Eos % (Auto) Lymph # [place] # Eos # Seg Neutrophils % Seg Neuts % (Manual) Lymphocytes % (Manual) 8.0 L Monocytes % (Manual) Eosinophils % (Manual) Nucleated RBC % 1.0 H Seg Neutrophils # Seg Neutrophils # Man Lymphocytes # (Manual) 0.7 L Monocytes # (Manual) Eosinophils # (Manual) PT INR POC ABG pH 7.550 H POC ABG pCO2 31.6 L POC ABG pO2 Sodium 146 H Potassium Chloride Carbon Dioxide BUN 26 H Creatinine 1.7 H D Glucose 133 H POC Glucose Lactic Acid Calcium Magnesium AST ALT Alkaline Phosphatase Troponin T 0.117 H* C-Reactive Protein Total Protein Albumin 2.5 L LDL Cholesterol Direct 42 L HDL Cholesterol 24 L Hepatitis C Antibody Crossmatch 11/11/17 11/12/17 11/12/17 23:20 00:23 00:23 WBC RBC Hgb Hct MCV MCH MCHC RDW Plt Count Lymph % (Auto) [place] % (Auto) Eos % (Auto) Lymph # [place] # Eos # Seg Neutrophils % Seg Neuts % (Manual) Lymphocytes % (Manual) Monocytes % (Manual) Eosinophils % (Manual) Nucleated RBC % Seg Neutrophils # Seg Neutrophils # Man Lymphocytes # (Manual) Monocytes # (Manual) Eosinophils # (Manual) PT 16.7 H INR 1.28 H POC ABG pH POC ABG pCO2 POC ABG pO2 Sodium Potassium Chloride Carbon Dioxide BUN Creatinine Glucose POC Glucose Lactic Acid 3.20 H* Calcium Magnesium AST ALT Alkaline Phosphatase Troponin T C-Reactive Protein 25.70 H Total Protein Albumin LDL Cholesterol Direct HDL Cholesterol Hepatitis C Antibody Crossmatch 11/12/17 11/12/17 11/12/17 00:46 01:27 01:27 WBC RBC Hgb Hct MCV MCH MCHC RDW Plt Count Lymph % (Auto) [place] % (Auto) Eos % (Auto) Lymph # [place] # Eos # Seg Neutrophils % Seg Neuts % (Manual) Lymphocytes % (Manual) Monocytes % (Manual) Eosinophils % (Manual) Nucleated RBC % Seg Neutrophils # Seg Neutrophils # Man Lymphocytes # (Manual) Monocytes # (Manual) Eosinophils # (Manual) PT INR POC ABG pH 7.495 H POC ABG pCO2 32.0 L POC ABG pO2 64 L Sodium Potassium Chloride Carbon Dioxide BUN Creatinine Glucose POC Glucose Lactic Acid 3.70 H* Calcium Magnesium AST ALT Alkaline Phosphatase Troponin T 0.096 H C-Reactive Protein Total Protein Albumin LDL Cholesterol Direct HDL Cholesterol Hepatitis C Antibody Crossmatch 11/12/17 11/12/17 11/12/17 03:21 04:50 06:27 WBC RBC Hgb Hct MCV MCH MCHC RDW Plt Count Lymph % (Auto) [place] % (Auto) Eos % (Auto) Lymph # [place] # Eos # Seg Neutrophils % Seg Neuts % (Manual) Lymphocytes % (Manual) Monocytes % (Manual) Eosinophils % (Manual) Nucleated RBC % Seg Neutrophils # Seg Neutrophils # Man Lymphocytes # (Manual) Monocytes # (Manual) Eosinophils # (Manual) PT INR POC ABG pH POC ABG pCO2 POC ABG pO2 109 H Sodium Potassium Chloride Carbon Dioxide BUN Creatinine Glucose POC Glucose Lactic Acid 3.80 H* 2.20 H* Calcium Magnesium AST ALT Alkaline Phosphatase Troponin T C-Reactive Protein Total Protein Albumin LDL Cholesterol Direct HDL Cholesterol Hepatitis C Antibody Crossmatch 11/12/17 11/12/17 11/12/17 09:24 09:24 09:24 WBC RBC Hgb 10.4 L Hct 33.4 L MCV MCH MCHC RDW Plt Count Lymph % (Auto) [place] % (Auto) Eos % (Auto) Lymph # [place] # Eos # Seg Neutrophils % Seg Neuts % (Manual) Lymphocytes % (Manual) Monocytes % (Manual) Eosinophils % (Manual) Nucleated RBC % Seg Neutrophils # Seg Neutrophils # Man Lymphocytes # (Manual) Monocytes # (Manual) Eosinophils # (Manual) PT INR POC ABG pH POC ABG pCO2 POC ABG pO2 Sodium Potassium Chloride Carbon Dioxide BUN Creatinine Glucose POC Glucose Lactic Acid 2.90 H* Calcium Magnesium AST ALT Alkaline Phosphatase Troponin T 0.091 H C-Reactive Protein Total Protein Albumin LDL Cholesterol Direct HDL Cholesterol Hepatitis C Antibody Crossmatch 11/12/17 11/12/17 11/12/17 12:56 20:03 Unknown WBC RBC Hgb Hct MCV MCH MCHC RDW Plt Count Lymph % (Auto) [place] % (Auto) Eos % (Auto) Lymph # [place] # Eos # Seg Neutrophils % Seg Neuts % (Manual) Lymphocytes % (Manual) Monocytes % (Manual) Eosinophils % (Manual) Nucleated RBC % Seg Neutrophils # Seg Neutrophils # Man Lymphocytes # (Manual) Monocytes # (Manual) Eosinophils # (Manual) PT INR POC ABG pH POC ABG pCO2 POC ABG pO2 Sodium Potassium Chloride Carbon Dioxide BUN Creatinine Glucose POC Glucose Lactic Acid 3.60 H* Calcium Magnesium AST ALT Alkaline Phosphatase Troponin T 0.102 H* 0.156 H* D C-Reactive Protein Total Protein Albumin LDL Cholesterol Direct HDL Cholesterol Hepatitis C Antibody Crossmatch 11/12/17 11/13/17 11/13/17 Unknown 04:50 04:50 WBC 12.2 H RBC 3.51 L Hgb 9.3 L Hct 30.1 L MCV MCH 26 L MCHC 31 L RDW 18.0 H Plt Count 128 L Lymph % (Auto) 8.6 L [place] % (Auto) 11.1 H Eos % (Auto) Lymph # 1.1 L [place] # 1.4 H Eos # Seg Neutrophils % 80.1 H Seg Neuts % (Manual) Lymphocytes % (Manual) Monocytes % (Manual) Eosinophils % (Manual) Nucleated RBC % Seg Neutrophils # 9.8 H Seg Neutrophils # Man Lymphocytes # (Manual) Monocytes # (Manual) Eosinophils # (Manual) PT INR POC ABG pH POC ABG pCO2 POC ABG pO2 Sodium 149 H Potassium 5.1 H Chloride 114.4 H Carbon Dioxide 18 L BUN 52 H Creatinine 3.3 H D Glucose 129 H POC Glucose Lactic Acid Calcium 7.9 L Magnesium AST ALT Alkaline Phosphatase Troponin T 0.098 H C-Reactive Protein Total Protein Albumin LDL Cholesterol Direct HDL Cholesterol Hepatitis C Antibody Crossmatch 11/13/17 11/13/17 11/14/17 04:51 09:34 04:21 WBC RBC Hgb Hct MCV MCH MCHC RDW Plt Count Lymph % (Auto) [place] % (Auto) Eos % (Auto) Lymph # [place] # Eos # Seg Neutrophils % Seg Neuts % (Manual) Lymphocytes % (Manual) Monocytes % (Manual) Eosinophils % (Manual) Nucleated RBC % Seg Neutrophils # Seg Neutrophils # Man Lymphocytes # (Manual) Monocytes # (Manual) Eosinophils # (Manual) PT INR POC ABG pH POC ABG pCO2 30.1 L 29.8 L POC ABG pO2 135 H Sodium Potassium Chloride Carbon Dioxide BUN Creatinine Glucose POC Glucose Lactic Acid 2.10 H* Calcium Magnesium AST ALT Alkaline Phosphatase Troponin T C-Reactive Protein Total Protein Albumin LDL Cholesterol Direct HDL Cholesterol Hepatitis C Antibody Crossmatch 11/15/17 11/15/17 11/16/17 04:52 15:50 05:17 WBC RBC Hgb Hct MCV MCH MCHC RDW Plt Count Lymph % (Auto) [place] % (Auto) Eos % (Auto) Lymph # [place] # Eos # Seg Neutrophils % Seg Neuts % (Manual) Lymphocytes % (Manual) Monocytes % (Manual) Eosinophils % (Manual) Nucleated RBC % Seg Neutrophils # Seg Neutrophils # Man Lymphocytes # (Manual) Monocytes # (Manual) Eosinophils # (Manual) PT INR POC ABG pH POC ABG pCO2 29.5 L 31.5 L POC ABG pO2 115 H 122 H Sodium 154 H Potassium Chloride 117.9 H Carbon Dioxide 19 L BUN 87 H Creatinine 4.1 H Glucose POC Glucose Lactic Acid Calcium 8.1 L Magnesium AST ALT Alkaline Phosphatase Troponin T C-Reactive Protein Total Protein Albumin LDL Cholesterol Direct HDL Cholesterol Hepatitis C Antibody Crossmatch 11/16/17 11/17/17 11/17/17 16:37 04:07 10:00 WBC 14.7 H RBC 3.23 L Hgb 8.3 L Hct 28.1 L MCV MCH 26 L MCHC 30 L RDW 18.8 H Plt Count Lymph % (Auto) [place] % (Auto) Eos % (Auto) Lymph # [place] # Eos # Seg Neutrophils % Seg Neuts % (Manual) 75 H Lymphocytes % (Manual) 8.0 L Monocytes % (Manual) Eosinophils % (Manual) Nucleated RBC % 1.0 H Seg Neutrophils # Seg Neutrophils # Man 11.0 H Lymphocytes # (Manual) Monocytes # (Manual) 0.9 H Eosinophils # (Manual) PT INR POC ABG pH POC ABG pCO2 POC ABG pO2 Sodium 153 H 155 H Potassium Chloride 117.3 H 119.4 H Carbon Dioxide 19 L 20 L BUN 90 H 89 H Creatinine 3.9 H 3.6 H Glucose 111 H 115 H POC Glucose Lactic Acid Calcium 8.1 L 8.0 L Magnesium AST ALT Alkaline Phosphatase Troponin T C-Reactive Protein Total Protein Albumin LDL Cholesterol Direct HDL Cholesterol Hepatitis C Antibody Crossmatch 11/18/17 11/18/17 11/18/17 04:34 04:34 04:34 WBC 15.5 H RBC 3.13 L Hgb 8.1 L Hct 26.3 L MCV MCH 26 L MCHC 31 L RDW 18.6 H Plt Count Lymph % (Auto) [place] % (Auto) Eos % (Auto) Lymph # [place] # Eos # Seg Neutrophils % Seg Neuts % (Manual) 81.0 H Lymphocytes % (Manual) 7.0 L Monocytes % (Manual) Eosinophils % (Manual) Nucleated RBC % 1.0 H Seg Neutrophils # Seg Neutrophils # Man 12.6 H Lymphocytes # (Manual) 1.1 L Monocytes # (Manual) Eosinophils # (Manual) PT 16.7 H INR 1.30 H POC ABG pH POC ABG pCO2 POC ABG pO2 Sodium 155 H Potassium 3.2 L Chloride 121.0 H Carbon Dioxide 20 L BUN 74 H Creatinine 2.9 H Glucose 126 H POC Glucose Lactic Acid Calcium 7.9 L Magnesium AST ALT Alkaline Phosphatase Troponin T C-Reactive Protein Total Protein Albumin LDL Cholesterol Direct HDL Cholesterol Hepatitis C Antibody Crossmatch 11/19/17 11/19/17 11/20/17 04:44 04:44 00:38 WBC 19.0 H 22.2 H RBC 3.20 L 3.17 L Hgb 8.4 L 7.9 L Hct 27.9 L 26.4 L MCV 83 L MCH 26 L 25 L MCHC 30 L 30 L RDW 19.1 H 18.9 H Plt Count Lymph % (Auto) [place] % (Auto) Eos % (Auto) Lymph # [place] # Eos # Seg Neutrophils % Seg Neuts % (Manual) 83.0 H Lymphocytes % (Manual) 3.0 L Monocytes % (Manual) 9.0 H Eosinophils % (Manual) Nucleated RBC % Seg Neutrophils # Seg Neutrophils # Man 18.4 H Lymphocytes # (Manual) 0.7 L Monocytes # (Manual) 2.0 H Eosinophils # (Manual) PT INR POC ABG pH POC ABG pCO2 POC ABG pO2 Sodium 152 H Potassium Chloride 117.1 H Carbon Dioxide 17 L BUN 66 H Creatinine 2.8 H Glucose 119 H POC Glucose Lactic Acid Calcium 7.8 L Magnesium 2.70 H AST ALT Alkaline Phosphatase Troponin T C-Reactive Protein Total Protein Albumin LDL Cholesterol Direct HDL Cholesterol Hepatitis C Antibody Crossmatch 11/20/17 11/20/17 11/20/17 03:29 04:48 13:38 WBC RBC Hgb Hct MCV MCH MCHC RDW Plt Count Lymph % (Auto) [place] % (Auto) Eos % (Auto) Lymph # [place] # Eos # Seg Neutrophils % Seg Neuts % (Manual) Lymphocytes % (Manual) Monocytes % (Manual) Eosinophils % (Manual) Nucleated RBC % Seg Neutrophils # Seg Neutrophils # Man Lymphocytes # (Manual) Monocytes # (Manual) Eosinophils # (Manual) PT INR POC ABG pH POC ABG pCO2 29.4 L POC ABG pO2 Sodium 148 H Potassium 3.4 L Chloride 113.7 H Carbon Dioxide 18 L BUN 59 H Creatinine 2.7 H Glucose 113 H POC Glucose 128 H Lactic Acid Calcium 7.8 L Magnesium AST ALT Alkaline Phosphatase Troponin T C-Reactive Protein Total Protein Albumin LDL Cholesterol Direct HDL Cholesterol Hepatitis C Antibody Crossmatch 11/20/17 11/20/17 11/21/17 17:38 23:40 00:13 WBC RBC Hgb 8.4 L Hct 28.0 L MCV MCH MCHC RDW Plt Count Lymph % (Auto) [place] % (Auto) Eos % (Auto) Lymph # [place] # Eos # Seg Neutrophils % Seg Neuts % (Manual) Lymphocytes % (Manual) Monocytes % (Manual) Eosinophils % (Manual) Nucleated RBC % Seg Neutrophils # Seg Neutrophils # Man Lymphocytes # (Manual) Monocytes # (Manual) Eosinophils # (Manual) PT INR POC ABG pH POC ABG pCO2 POC ABG pO2 Sodium Potassium Chloride Carbon Dioxide BUN Creatinine Glucose POC Glucose 115 H 145 H Lactic Acid Calcium Magnesium AST ALT Alkaline Phosphatase Troponin T C-Reactive Protein Total Protein Albumin LDL Cholesterol Direct HDL Cholesterol Hepatitis C Antibody Crossmatch 11/21/17 11/21/17 11/21/17 04:30 04:30 04:58 WBC 21.0 H RBC Hgb 9.6 L Hct 32.7 L MCV MCH 25 L MCHC 29 L RDW 19.7 H Plt Count 746 H Lymph % (Auto) [place] % (Auto) Eos % (Auto) Lymph # [place] # Eos # Seg Neutrophils % Seg Neuts % (Manual) Lymphocytes % (Manual) Monocytes % (Manual) Eosinophils % (Manual) Nucleated RBC % Seg Neutrophils # Seg Neutrophils # Man Lymphocytes # (Manual) Monocytes # (Manual) Eosinophils # (Manual) PT INR POC ABG pH POC ABG pCO2 POC ABG pO2 Sodium Potassium Chloride 109.4 H Carbon Dioxide 14 L BUN 59 H Creatinine 3.0 H Glucose 137 H POC Glucose 132 H Lactic Acid Calcium 7.6 L Magnesium AST ALT Alkaline Phosphatase Troponin T C-Reactive Protein Total Protein Albumin LDL Cholesterol Direct HDL Cholesterol Hepatitis C Antibody Crossmatch 11/21/17 11/21/17 11/21/17 06:30 13:43 14:17 WBC 38.2 H RBC Hgb 9.0 L Hct 32.3 L MCV MCH 25 L MCHC 28 L RDW 20.0 H Plt Count 766 H Lymph % (Auto) [place] % (Auto) Eos % (Auto) Lymph # [place] # Eos # Seg Neutrophils % Seg Neuts % (Manual) 85.0 H Lymphocytes % (Manual) 1.0 L Monocytes % (Manual) Eosinophils % (Manual) Nucleated RBC % 2.0 H Seg Neutrophils # Seg Neutrophils # Man 32.5 H Lymphocytes # (Manual) 0.4 L Monocytes # (Manual) 2.3 H Eosinophils # (Manual) PT INR POC ABG pH POC ABG pCO2 18.6 L POC ABG pO2 121 H Sodium 146 H Potassium Chloride 110.9 H Carbon Dioxide 11 L BUN 62 H Creatinine 4.0 H Glucose 64 L POC Glucose Lactic Acid Calcium 7.6 L Magnesium AST ALT Alkaline Phosphatase Troponin T C-Reactive Protein Total Protein Albumin LDL Cholesterol Direct HDL Cholesterol Hepatitis C Antibody Crossmatch 11/21/17 11/21/17 11/22/17 14:17 19:09 00:05 WBC RBC Hgb Hct MCV MCH MCHC RDW Plt Count Lymph % (Auto) [place] % (Auto) Eos % (Auto) Lymph # [place] # Eos # Seg Neutrophils % Seg Neuts % (Manual) Lymphocytes % (Manual) Monocytes % (Manual) Eosinophils % (Manual) Nucleated RBC % Seg Neutrophils # Seg Neutrophils # Man Lymphocytes # (Manual) Monocytes # (Manual) Eosinophils # (Manual) PT INR POC ABG pH POC ABG pCO2 20.0 L POC ABG pO2 Sodium Potassium Chloride Carbon Dioxide BUN Creatinine Glucose POC Glucose 127 H Lactic Acid 7.70 H* Calcium Magnesium AST ALT Alkaline Phosphatase Troponin T C-Reactive Protein Total Protein Albumin LDL Cholesterol Direct HDL Cholesterol Hepatitis C Antibody Crossmatch 11/22/17 11/22/17 11/22/17 03:53 06:00 07:25 WBC RBC Hgb Hct MCV MCH MCHC RDW Plt Count Lymph % (Auto) [place] % (Auto) Eos % (Auto) Lymph # [place] # Eos # Seg Neutrophils % Seg Neuts % (Manual) Lymphocytes % (Manual) Monocytes % (Manual) Eosinophils % (Manual) Nucleated RBC % Seg Neutrophils # Seg Neutrophils # Man Lymphocytes # (Manual) Monocytes # (Manual) Eosinophils # (Manual) PT INR POC ABG pH POC ABG pCO2 22.2 L POC ABG pO2 Sodium 147 H Potassium Chloride 111.9 H Carbon Dioxide 16 L BUN 72 H Creatinine 5.1 H Glucose 181 H POC Glucose 180 H Lactic Acid Calcium 7.1 L Magnesium AST ALT Alkaline Phosphatase Troponin T C-Reactive Protein Total Protein Albumin LDL Cholesterol Direct HDL Cholesterol Hepatitis C Antibody Crossmatch 11/22/17 11/22/17 11/22/17 07:25 07:25 12:05 WBC 31.4 H RBC 3.22 L Hgb 8.0 L Hct 26.7 L MCV 83 L MCH 25 L MCHC 30 L RDW 19.4 H Plt Count 602 H Lymph % (Auto) [place] % (Auto) Eos % (Auto) Lymph # [place] # Eos # Seg Neutrophils % Seg Neuts % (Manual) Lymphocytes % (Manual) Monocytes % (Manual) Eosinophils % (Manual) Nucleated RBC % Seg Neutrophils # Seg Neutrophils # Man Lymphocytes # (Manual) Monocytes # (Manual) Eosinophils # (Manual) PT INR POC ABG pH POC ABG pCO2 POC ABG pO2 Sodium Potassium Chloride Carbon Dioxide BUN Creatinine Glucose POC Glucose 182 H Lactic Acid 5.00 H* Calcium Magnesium AST ALT Alkaline Phosphatase Troponin T C-Reactive Protein Total Protein Albumin LDL Cholesterol Direct HDL Cholesterol Hepatitis C Antibody Crossmatch 11/22/17 11/23/17 11/23/17 19:45 01:28 04:56 WBC RBC Hgb Hct MCV MCH MCHC RDW Plt Count Lymph % (Auto) [place] % (Auto) Eos % (Auto) Lymph # [place] # Eos # Seg Neutrophils % Seg Neuts % (Manual) Lymphocytes % (Manual) Monocytes % (Manual) Eosinophils % (Manual) Nucleated RBC % Seg Neutrophils # Seg Neutrophils # Man Lymphocytes # (Manual) Monocytes # (Manual) Eosinophils # (Manual) PT INR POC ABG pH 7.505 H POC ABG pCO2 26.3 L POC ABG pO2 Sodium Potassium Chloride Carbon Dioxide BUN Creatinine Glucose POC Glucose 165 H Lactic Acid Calcium Magnesium AST ALT Alkaline Phosphatase Troponin T C-Reactive Protein Total Protein Albumin LDL Cholesterol Direct HDL Cholesterol Hepatitis C Antibody Reactive A Crossmatch 11/23/17 11/23/17 11/23/17 07:05 12:32 17:53 WBC RBC Hgb Hct MCV MCH MCHC RDW Plt Count Lymph % (Auto) [place] % (Auto) Eos % (Auto) Lymph # [place] # Eos # Seg Neutrophils % Seg Neuts % (Manual) Lymphocytes % (Manual) Monocytes % (Manual) Eosinophils % (Manual) Nucleated RBC % Seg Neutrophils # Seg Neutrophils # Man Lymphocytes # (Manual) Monocytes # (Manual) Eosinophils # (Manual) PT INR POC ABG pH POC ABG pCO2 POC ABG pO2 Sodium Potassium Chloride Carbon Dioxide 18 L BUN 61 H Creatinine 4.2 H Glucose 153 H POC Glucose 138 H 173 H Lactic Acid Calcium 7.5 L Magnesium AST ALT Alkaline Phosphatase Troponin T C-Reactive Protein Total Protein Albumin LDL Cholesterol Direct HDL Cholesterol Hepatitis C Antibody Crossmatch 11/23/17 11/24/17 11/24/17 23:41 05:42 05:42 WBC 21.5 H RBC 2.48 L Hgb 6.2 L Hct 20.3 L D MCV 82 L MCH 25 L MCHC 31 L RDW 18.9 H Plt Count Lymph % (Auto) [place] % (Auto) Eos % (Auto) Lymph # [place] # Eos # Seg Neutrophils % Seg Neuts % (Manual) 94.0 H Lymphocytes % (Manual) 3.0 L Monocytes % (Manual) Eosinophils % (Manual) Nucleated RBC % Seg Neutrophils # Seg Neutrophils # Man 20.2 H Lymphocytes # (Manual) 0.6 L Monocytes # (Manual) Eosinophils # (Manual) PT INR POC ABG pH POC ABG pCO2 POC ABG pO2 Sodium 149 H Potassium 2.8 L* D Chloride 113.9 H Carbon Dioxide 19 L BUN 31 H Creatinine 2.3 H Glucose 103 H POC Glucose 133 H Lactic Acid Calcium 5.3 L* D Magnesium 1.30 L AST ALT Alkaline Phosphatase Troponin T C-Reactive Protein Total Protein Albumin LDL Cholesterol Direct HDL Cholesterol Hepatitis C Antibody Crossmatch 11/24/17 11/24/17 11/24/17 05:42 08:27 08:27 WBC RBC Hgb Hct MCV MCH MCHC RDW Plt Count Lymph % (Auto) [place] % (Auto) Eos % (Auto) Lymph # [place] # Eos # Seg Neutrophils % Seg Neuts % (Manual) Lymphocytes % (Manual) Monocytes % (Manual) Eosinophils % (Manual) Nucleated RBC % Seg Neutrophils # Seg Neutrophils # Man Lymphocytes # (Manual) Monocytes # (Manual) Eosinophils # (Manual) PT INR POC ABG pH POC ABG pCO2 POC ABG pO2 Sodium Potassium Chloride Carbon Dioxide BUN Creatinine Glucose POC Glucose Lactic Acid 5.40 H* 5.20 H* Calcium Magnesium AST ALT Alkaline Phosphatase Troponin T C-Reactive Protein Total Protein Albumin LDL Cholesterol Direct HDL Cholesterol Hepatitis C Antibody Crossmatch See Detail 11/24/17 11/24/17 11/24/17 12:13 17:22 21:53 WBC 23.0 H RBC 3.32 L Hgb 8.8 L Hct 27.1 L D MCV 82 L MCH 26 L MCHC RDW 17.3 H Plt Count Lymph % (Auto) [place] % (Auto) Eos % (Auto) Lymph # [place] # Eos # Seg Neutrophils % Seg Neuts % (Manual) Lymphocytes % (Manual) Monocytes % (Manual) Eosinophils % (Manual) Nucleated RBC % Seg Neutrophils # Seg Neutrophils # Man Lymphocytes # (Manual) Monocytes # (Manual) Eosinophils # (Manual) PT INR POC ABG pH POC ABG pCO2 POC ABG pO2 Sodium Potassium Chloride Carbon Dioxide BUN Creatinine Glucose POC Glucose 138 H 180 H Lactic Acid Calcium Magnesium AST ALT Alkaline Phosphatase Troponin T C-Reactive Protein Total Protein Albumin LDL Cholesterol Direct HDL Cholesterol Hepatitis C Antibody Crossmatch 11/24/17 11/24/17 11/25/17 21:53 23:28 04:19 WBC RBC Hgb Hct MCV MCH MCHC RDW Plt Count Lymph % (Auto) [place] % (Auto) Eos % (Auto) Lymph # [place] # Eos # Seg Neutrophils % Seg Neuts % (Manual) Lymphocytes % (Manual) Monocytes % (Manual) Eosinophils % (Manual) Nucleated RBC % Seg Neutrophils # Seg Neutrophils # Man Lymphocytes # (Manual) Monocytes # (Manual) Eosinophils # (Manual) PT INR POC ABG pH POC ABG pCO2 POC ABG pO2 Sodium Potassium Chloride 96.3 L Carbon Dioxide BUN 28 H 31 H Creatinine 2.3 H 2.6 H Glucose 125 H 101 H POC Glucose 111 H Lactic Acid Calcium 7.5 L D 7.4 L Magnesium AST 170 H ALT 179 H Alkaline Phosphatase 175 H Troponin T C-Reactive Protein Total Protein 5.5 L Albumin 1.8 L LDL Cholesterol Direct HDL Cholesterol Hepatitis C Antibody Crossmatch 11/25/17 11/25/17 11/26/17 04:19 04:19 06:29 WBC 22.5 H RBC 3.48 L Hgb 9.1 L Hct 28.3 L MCV 81 L MCH 26 L MCHC RDW 17.4 H Plt Count Lymph % (Auto) [place] % (Auto) Eos % (Auto) Lymph # [place] # Eos # Seg Neutrophils % Seg Neuts % (Manual) Lymphocytes % (Manual) Monocytes % (Manual) Eosinophils % (Manual) Nucleated RBC % Seg Neutrophils # Seg Neutrophils # Man Lymphocytes # (Manual) Monocytes # (Manual) Eosinophils # (Manual) PT 23.6 H INR 1.96 H POC ABG pH POC ABG pCO2 POC ABG pO2 Sodium Potassium Chloride Carbon Dioxide BUN 31 H Creatinine 2.6 H Glucose 101 H POC Glucose Lactic Acid Calcium 7.5 L Magnesium AST ALT Alkaline Phosphatase Troponin T C-Reactive Protein Total Protein Albumin LDL Cholesterol Direct HDL Cholesterol Hepatitis C Antibody Crossmatch 11/26/17 11/27/17 11/27/17 06:34 04:06 04:06 WBC 11.3 H RBC 3.13 L Hgb 8.4 L Hct 25.8 L MCV 82 L MCH 27 L MCHC RDW 17.7 H Plt Count Lymph % (Auto) 7.4 L [place] % (Auto) Eos % (Auto) Lymph # 0.8 L [place] # Eos # Seg Neutrophils % 83.7 H Seg Neuts % (Manual) Lymphocytes % (Manual) Monocytes % (Manual) Eosinophils % (Manual) Nucleated RBC % Seg Neutrophils # 9.5 H Seg Neutrophils # Man Lymphocytes # (Manual) Monocytes # (Manual) Eosinophils # (Manual) PT INR POC ABG pH POC ABG pCO2 POC ABG pO2 Sodium Potassium Chloride 97.9 L Carbon Dioxide BUN 43 H 29 H Creatinine 3.5 H 2.9 H Glucose POC Glucose Lactic Acid Calcium 7.5 L 8.1 L Magnesium AST ALT Alkaline Phosphatase Troponin T C-Reactive Protein Total Protein Albumin LDL Cholesterol Direct HDL Cholesterol Hepatitis C Antibody Crossmatch 11/27/17 11/28/17 11/28/17 18:11 00:16 03:50 WBC RBC Hgb Hct MCV MCH MCHC RDW Plt Count Lymph % (Auto) [place] % (Auto) Eos % (Auto) Lymph # [place] # Eos # Seg Neutrophils % Seg Neuts % (Manual) Lymphocytes % (Manual) Monocytes % (Manual) Eosinophils % (Manual) Nucleated RBC % Seg Neutrophils # Seg Neutrophils # Man Lymphocytes # (Manual) Monocytes # (Manual) Eosinophils # (Manual) PT INR POC ABG pH POC ABG pCO2 POC ABG pO2 Sodium Potassium Chloride Carbon Dioxide BUN 39 H Creatinine 4.1 H Glucose 108 H POC Glucose 110 H 124 H Lactic Acid Calcium 7.9 L Magnesium AST ALT Alkaline Phosphatase Troponin T C-Reactive Protein Total Protein Albumin LDL Cholesterol Direct HDL Cholesterol Hepatitis C Antibody Crossmatch 11/28/17 11/28/17 11/28/17 05:03 11:36 17:42 WBC RBC Hgb Hct MCV MCH MCHC RDW Plt Count Lymph % (Auto) [place] % (Auto) Eos % (Auto) Lymph # [place] # Eos # Seg Neutrophils % Seg Neuts % (Manual) Lymphocytes % (Manual) Monocytes % (Manual) Eosinophils % (Manual) Nucleated RBC % Seg Neutrophils # Seg Neutrophils # Man Lymphocytes # (Manual) Monocytes # (Manual) Eosinophils # (Manual) PT INR POC ABG pH POC ABG pCO2 POC ABG pO2 Sodium Potassium Chloride Carbon Dioxide BUN Creatinine Glucose POC Glucose 134 H 114 H 119 H Lactic Acid Calcium Magnesium AST ALT Alkaline Phosphatase Troponin T C-Reactive Protein Total Protein Albumin LDL Cholesterol Direct HDL Cholesterol Hepatitis C Antibody Crossmatch 11/29/17 11/29/17 11/29/17 00:22 05:25 05:25 WBC 12.3 H RBC 3.34 L Hgb 8.6 L Hct 27.3 L MCV 82 L MCH 26 L MCHC RDW 18.5 H Plt Count Lymph % (Auto) 3.7 L [place] % (Auto) 7.7 H Eos % (Auto) Lymph # 0.5 L [place] # 1.0 H Eos # Seg Neutrophils % 86.5 H Seg Neuts % (Manual) Lymphocytes % (Manual) Monocytes % (Manual) Eosinophils % (Manual) Nucleated RBC % Seg Neutrophils # 10.7 H Seg Neutrophils # Man Lymphocytes # (Manual) Monocytes # (Manual) Eosinophils # (Manual) PT INR POC ABG pH POC ABG pCO2 POC ABG pO2 Sodium Potassium Chloride Carbon Dioxide BUN 29 H Creatinine 3.5 H Glucose 109 H POC Glucose 137 H Lactic Acid Calcium 7.8 L Magnesium AST ALT Alkaline Phosphatase Troponin T C-Reactive Protein Total Protein Albumin LDL Cholesterol Direct HDL Cholesterol Hepatitis C Antibody Crossmatch 11/29/17 11/30/17 11/30/17 05:26 00:26 04:17 WBC RBC Hgb Hct MCV MCH MCHC RDW Plt Count Lymph % (Auto) [place] % (Auto) Eos % (Auto) Lymph # [place] # Eos # Seg Neutrophils % Seg Neuts % (Manual) Lymphocytes % (Manual) Monocytes % (Manual) Eosinophils % (Manual) Nucleated RBC % Seg Neutrophils # Seg Neutrophils # Man Lymphocytes # (Manual) Monocytes # (Manual) Eosinophils # (Manual) PT INR POC ABG pH POC ABG pCO2 POC ABG pO2 Sodium Potassium Chloride Carbon Dioxide BUN 38 H Creatinine 4.3 H Glucose 109 H POC Glucose 129 H 152 H Lactic Acid Calcium 7.8 L Magnesium AST ALT Alkaline Phosphatase Troponin T C-Reactive Protein Total Protein Albumin LDL Cholesterol Direct HDL Cholesterol Hepatitis C Antibody Crossmatch 11/30/17 11/30/17 11/30/17 12:17 16:23 23:35 WBC RBC Hgb Hct MCV MCH MCHC RDW Plt Count Lymph % (Auto) [place] % (Auto) Eos % (Auto) Lymph # [place] # Eos # Seg Neutrophils % Seg Neuts % (Manual) Lymphocytes % (Manual) Monocytes % (Manual) Eosinophils % (Manual) Nucleated RBC % Seg Neutrophils # Seg Neutrophils # Man Lymphocytes # (Manual) Monocytes # (Manual) Eosinophils # (Manual) PT INR POC ABG pH POC ABG pCO2 POC ABG pO2 Sodium Potassium Chloride Carbon Dioxide BUN Creatinine Glucose POC Glucose 170 H 114 H 122 H Lactic Acid Calcium Magnesium AST ALT Alkaline Phosphatase Troponin T C-Reactive Protein Total Protein Albumin LDL Cholesterol Direct HDL Cholesterol Hepatitis C Antibody Crossmatch 12/01/17 12/01/17 12/01/17 04:09 04:09 12:17 WBC 14.1 H RBC 3.32 L Hgb 8.6 L Hct 27.0 L MCV 81 L MCH 26 L MCHC RDW 18.7 H Plt Count Lymph % (Auto) 5.5 L [place] % (Auto) 9.7 H Eos % (Auto) Lymph # 0.8 L [place] # 1.4 H Eos # Seg Neutrophils % 82.9 H Seg Neuts % (Manual) Lymphocytes % (Manual) Monocytes % (Manual) Eosinophils % (Manual) Nucleated RBC % Seg Neutrophils # 11.7 H Seg Neutrophils # Man Lymphocytes # (Manual) Monocytes # (Manual) Eosinophils # (Manual) PT INR POC ABG pH POC ABG pCO2 POC ABG pO2 Sodium Potassium 3.4 L Chloride Carbon Dioxide BUN 21 H Creatinine 3.0 H Glucose 108 H POC Glucose 126 H Lactic Acid Calcium 8.0 L Magnesium AST ALT Alkaline Phosphatase Troponin T C-Reactive Protein Total Protein Albumin LDL Cholesterol Direct HDL Cholesterol Hepatitis C Antibody Crossmatch 12/02/17 12/03/17 12/03/17 23:46 02:52 05:54 WBC 17.2 H RBC 3.21 L Hgb 8.5 L Hct 25.8 L MCV 80 L MCH 26 L MCHC RDW 18.4 H Plt Count 128 L Lymph % (Auto) [place] % (Auto) Eos % (Auto) Lymph # [place] # Eos # Seg Neutrophils % Seg Neuts % (Manual) Lymphocytes % (Manual) Monocytes % (Manual) Eosinophils % (Manual) Nucleated RBC % Seg Neutrophils # Seg Neutrophils # Man Lymphocytes # (Manual) Monocytes # (Manual) Eosinophils # (Manual) PT INR POC ABG pH POC ABG pCO2 POC ABG pO2 Sodium Potassium Chloride Carbon Dioxide BUN Creatinine Glucose POC Glucose 125 H 107 H Lactic Acid Calcium Magnesium AST ALT Alkaline Phosphatase Troponin T C-Reactive Protein Total Protein Albumin LDL Cholesterol Direct HDL Cholesterol Hepatitis C Antibody Crossmatch 12/03/17 12/03/17 12/04/17 12:05 Unknown 12:26 WBC RBC Hgb Hct MCV MCH MCHC RDW Plt Count Lymph % (Auto) [place] % (Auto) Eos % (Auto) Lymph # [place] # Eos # Seg Neutrophils % Seg Neuts % (Manual) Lymphocytes % (Manual) Monocytes % (Manual) Eosinophils % (Manual) Nucleated RBC % Seg Neutrophils # Seg Neutrophils # Man Lymphocytes # (Manual) Monocytes # (Manual) Eosinophils # (Manual) PT INR POC ABG pH POC ABG pCO2 POC ABG pO2 Sodium Potassium Chloride Carbon Dioxide BUN 21 H Creatinine 2.8 H Glucose 113 H POC Glucose 106 H 119 H Lactic Acid Calcium Magnesium AST ALT Alkaline Phosphatase Troponin T C-Reactive Protein Total Protein Albumin LDL Cholesterol Direct HDL Cholesterol Hepatitis C Antibody Crossmatch 12/04/17 12/05/17 12/05/17 17:57 00:52 04:05 WBC RBC 2.96 L Hgb 7.7 L Hct 24.2 L MCV 82 L MCH 26 L MCHC RDW 18.8 H Plt Count 105 L Lymph % (Auto) 10.6 L [place] % (Auto) 12.1 H Eos % (Auto) 5.2 H Lymph # 1.1 L [place] # 1.3 H Eos # 0.5 H Seg Neutrophils % 71.3 H Seg Neuts % (Manual) Lymphocytes % (Manual) Monocytes % (Manual) Eosinophils % (Manual) Nucleated RBC % Seg Neutrophils # Seg Neutrophils # Man Lymphocytes # (Manual) Monocytes # (Manual) Eosinophils # (Manual) PT INR POC ABG pH POC ABG pCO2 POC ABG pO2 Sodium Potassium Chloride Carbon Dioxide BUN Creatinine Glucose POC Glucose 140 H 117 H Lactic Acid Calcium Magnesium AST ALT Alkaline Phosphatase Troponin T C-Reactive Protein Total Protein Albumin LDL Cholesterol Direct HDL Cholesterol Hepatitis C Antibody Crossmatch 12/05/17 12/05/17 12/06/17 04:05 22:50 08:18 WBC RBC 2.80 L Hgb 7.4 L Hct 23.0 L MCV 82 L MCH 27 L MCHC RDW 19.5 H Plt Count 125 L Lymph % (Auto) [place] % (Auto) Eos % (Auto) Lymph # [place] # Eos # Seg Neutrophils % Seg Neuts % (Manual) Lymphocytes % (Manual) Monocytes % (Manual) Eosinophils % (Manual) Nucleated RBC % Seg Neutrophils # Seg Neutrophils # Man Lymphocytes # (Manual) Monocytes # (Manual) Eosinophils # (Manual) PT INR POC ABG pH POC ABG pCO2 POC ABG pO2 Sodium Potassium Chloride 107.4 H Carbon Dioxide BUN Creatinine 2.5 H Glucose POC Glucose 112 H Lactic Acid Calcium 8.3 L Magnesium AST ALT Alkaline Phosphatase Troponin T C-Reactive Protein Total Protein Albumin LDL Cholesterol Direct HDL Cholesterol Hepatitis C Antibody Crossmatch 12/06/17 12/06/17 12/06/17 08:18 12:01 23:58 WBC RBC Hgb Hct MCV MCH MCHC RDW Plt Count Lymph % (Auto) [place] % (Auto) Eos % (Auto) Lymph # [place] # Eos # Seg Neutrophils % Seg Neuts % (Manual) Lymphocytes % (Manual) Monocytes % (Manual) Eosinophils % (Manual) Nucleated RBC % Seg Neutrophils # Seg Neutrophils # Man Lymphocytes # (Manual) Monocytes # (Manual) Eosinophils # (Manual) PT INR POC ABG pH POC ABG pCO2 POC ABG pO2 Sodium Potassium Chloride 108.4 H Carbon Dioxide BUN 28 H Creatinine 3.7 H Glucose 103 H POC Glucose 106 H 108 H Lactic Acid Calcium 8.0 L Magnesium AST ALT Alkaline Phosphatase Troponin T C-Reactive Protein Total Protein Albumin LDL Cholesterol Direct HDL Cholesterol Hepatitis C Antibody Crossmatch 12/07/17 12/07/17 12/07/17 05:47 05:47 18:03 WBC RBC 2.79 L Hgb 7.3 L Hct 22.8 L MCV 82 L MCH 26 L MCHC RDW 19.1 H Plt Count 101 L Lymph % (Auto) [place] % (Auto) Eos % (Auto) Lymph # [place] # Eos # Seg Neutrophils % Seg Neuts % (Manual) 72.0 H Lymphocytes % (Manual) 13.0 L Monocytes % (Manual) Eosinophils % (Manual) 9.0 H Nucleated RBC % Seg Neutrophils # Seg Neutrophils # Man Lymphocytes # (Manual) 1.1 L Monocytes # (Manual) Eosinophils # (Manual) 0.8 H PT INR POC ABG pH POC ABG pCO2 POC ABG pO2 Sodium 146 H Potassium Chloride 109.8 H Carbon Dioxide BUN 36 H Creatinine 4.0 H Glucose POC Glucose 143 H Lactic Acid Calcium 8.0 L Magnesium AST ALT Alkaline Phosphatase Troponin T C-Reactive Protein Total Protein Albumin LDL Cholesterol Direct HDL Cholesterol Hepatitis C Antibody Crossmatch 12/07/17 12/08/17 12/08/17 23:33 05:10 05:10 WBC RBC 2.91 L Hgb 7.5 L Hct 24.4 L MCV MCH 26 L MCHC 31 L RDW 19.7 H Plt Count 109 L Lymph % (Auto) [place] % (Auto) Eos % (Auto) Lymph # [place] # Eos # Seg Neutrophils % Seg Neuts % (Manual) Lymphocytes % (Manual) 11.0 L Monocytes % (Manual) Eosinophils % (Manual) 12.0 H Nucleated RBC % Seg Neutrophils # Seg Neutrophils # Man Lymphocytes # (Manual) 0.7 L Monocytes # (Manual) Eosinophils # (Manual) 0.7 H PT INR POC ABG pH POC ABG pCO2 POC ABG pO2 Sodium 147 H Potassium Chloride 110.4 H Carbon Dioxide BUN Creatinine 2.8 H Glucose POC Glucose 107 H Lactic Acid Calcium 7.8 L Magnesium AST ALT Alkaline Phosphatase Troponin T C-Reactive Protein Total Protein Albumin LDL Cholesterol Direct HDL Cholesterol Hepatitis C Antibody Crossmatch
--- NOTE | 2017-12-08 13:29 | Progress Note ---
Assessment and Plan Assessment: 1) Sepsis with transient septic shock: new fever on 12/06 and leukocytosis resolved. Etiology most likely PEG-associated intra-abdominal collection. CRP= 25 2) VAP vs post-obstructive pneumonia (mucous mugging) -initial sputum 10/10 Klebsiella -sputum 11/12 usual respiratory estela -CXR showed increased perihilar alveolar density >RLL than LLL. -CTA showed complete atelectasis of the LLL with mediatinal shift to the left due to blockage of the left main bronchus by ETT. -repeat CT showed Loculated fluid collections noted along the bilateral paracolic gutters measuring approximately 4 x 8 cm in cross-sectional diameter and 13 cm in length on the right and 3.5 x 7 cm in cross-sectional diameter and 21 cm in length on the left, neither of which are in significant contiguity with catheters. Smaller, similar appearing fluid loculations in the mid and lower central mesentery both anterior and centrally, largest in the left paramedian supraumbilical region anteriorly measuring approximately 10 x 3 cm in cross-sectional diameter. Largest collection in the pelvis measures 11 x 13 cm in cross-sectional diameter and 2.5 cm in craniocaudal dimension. 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, placement of recent PEG tube with prolonged recent admission from 10/04-/11/10/17 4) Acute encephalopathy 5) Acute Respiratory failure 6) DARYA - on Intermittent HD started on 11/23/17 7) Hypernatremia 8) PEG-associated loculated intraabdominal collection s/p IR drainage 11/26 MDR Enterobacter and Heather non albicnas s/p OR lap partial wash out 12/03 +MDR Enterobacter resistant to cefepime s/p IR drains on 12/07 Plan: -continue fluconazole ok to change to PO -upon discharge will do meropenem 1 g IV q 24h and fluconazole 200 mg PO qday for 21 days until 12/23/17 -needs IV cath for daily meropenem -remove femoral vascath and place a neck HD access -avoid femoral central lines -contact isolation Discussed with Dr King Thank you for your consultation, will follow up with you. Olga Mercedes MD Infectious Diseases Specialist [facility] [phone] Subjective Date of service: 12/08/17 Principal diagnosis: Acute hypoxic respiratory failure, s/p Trach Interval history: On T piece. No fever. Underwent more IR drainage yesterday. Microbiology: Blood cultures: 10/24 NAIL PULLER 10/29 neg 11/10 neg 11/12 ngtd Urine cultures: Respiratory cultures: 10/10 Klebsiella 11/12 usual resp estela Peritonial cultures: 12/03 ngtd IR drainage 11/26 MDR Enterobacter and Heather not albicans OR drainage 12/03 MDR Enterobacter resistant to cefepime IR drainage 12/07 ngtd Current Antimicrobials: meropenem 12/06 fluconazole 11/29 Previous Antimicrobials: LevaquinZosyn 11/13 meropenem cefepime 12/02 Objective - Exam Narrative Exam: General appearance: alert on t-piece Eyes: anicteric sclerae, moist conjunctivae; no lid-lag; PERRLA HENT: Atraumatic; oropharynx+ETT +OGT Neck: Trachea midline; supple, no thyromegaly or lymphadenopathy Lungs: scattered rhonchi CV: rrr Abdomen: Soft, distended +PEG + drains with minimal purulence Extremities: winnie arms/legs edema Skin: Normal temperature, turgor and texture; no rash, ulcers or subcutaneous nodules Psych: more alert Neuro: more alert but somnolent Lines: condom cath, left fem line - Constitutional Vitals: Vital Signs Temp Pulse Resp BP Pulse Ox 99.1 F 93 H 28 H 123/68 99 12/08/17 12:00 12/08/17 10:00 12/08/17 10:00 12/08/17 10:00 12/08/17 10:00 Temperature -Last 24 Hours Temperature 99.1 F Temperature 99.2 F Temperature 99.2 F Temperature 98.2 F Temperature 98.8 F Temperature 97.7 F Temperature 98.9 F Temperature 98.9 F Temperature 98.9 F Temperature 99.4 F - Labs CBC & Chem 7: 12/08/17 05:10 12/08/17 05:10 Labs: Abnormal lab results 12/07/17 12/07/17 12/08/17 Range/Units 18:03 23:33 05:10 RBC 2.91 L (3.65-5.03) M/mm3 Hgb 7.5 L (11.8-15.2) gm/dl Hct 24.4 L (35.5-45.6) % MCH 26 L (28-32) pg MCHC 31 L (32-34) % RDW 19.7 H (13.2-15.2) % Plt Count 109 L (140-440) K/mm3 Lymphocytes % (Manual) 11.0 L (13.4-35.0) % Eosinophils % (Manual) 12.0 H (0.0-4.3) % Lymphocytes # (Manual) 0.7 L (1.2-5.4) K/mm3 Eosinophils # (Manual) 0.7 H (0.0-0.4) K/mm3 Sodium (137-145) mmol/L Chloride (98-107) mmol/L Creatinine (0.8-1.5) mg/dL POC Glucose 143 H 107 H (70-105) Calcium (8.4-10.2) mg/dL 12/08/17 Range/Units 05:10 RBC (3.65-5.03) M/mm3 Hgb (11.8-15.2) gm/dl Hct (35.5-45.6) % MCH (28-32) pg MCHC (32-34) % RDW (13.2-15.2) % Plt Count (140-440) K/mm3 Lymphocytes % (Manual) (13.4-35.0) % Eosinophils % (Manual) (0.0-4.3) % Lymphocytes # (Manual) (1.2-5.4) K/mm3 Eosinophils # (Manual) (0.0-0.4) K/mm3 Sodium 147 H (137-145) mmol/L Chloride 110.4 H (98-107) mmol/L Creatinine 2.8 H (0.8-1.5) mg/dL POC Glucose (70-105) Calcium 7.8 L (8.4-10.2) mg/dL
--- NOTE | 2017-12-08 16:26 | Progress Note ---
Assessment and Plan Peritonitis from dislodged peg tube - removed PEG tube on 11/22 -peritoneal Fluid positive for Enterobacter, Heather (non albicans) -Antibiotic managed by ID -s/p multiple intraabdominal drainages placed by IR and GS. also had abdominal washout by GS -Repeat CT scan on 12/04 showed persistent abdominal collection of abscess/ fluid and plan for repeat drainage of upper abdominal midline fluid collection and a perisplenic fluid collection on 12/06 by IR Acute on chronic respiratory failure with hypoxia - likely due to aspiratin and PNA -Status post tracheostomy, currently on T-piece - Pulmonology following Severe sepsis with shock likely secondary to aspiration pneumonia -Off IV pressors -Blood and sputum cultures negative Aspiration pneumonia with mucus plugging -treated with zosyn Acute kidney injury secondary to ATN -on Intermittent HD started on 11/23/17 -Creatinine level improved -Nephrology following Anemia of acute loss secondary to gastric ulcer and gastritis -Status post EGD on 11/18/2017 -Status post blood transfusion -H/H stable, will monitor Acute encephalopathy, likely multifactorial -Will continue to monitor clinically -Prognosis is poor Hypernatremia -Resolved Hypokalemia -We cont to monitor level and replete as needed Hypomagnesemia -Resolved status post repletion Oropharyngeal dysphagia -Status post PEG tube placement on 11/06, now removed -On tube feeding with dobhoff History of recent CVA -Not on aspirin due to recent bleed RT ICA stenosis -s/p recent endarterectomy Disposition: Patient overall prognosis remains poor. Continue management Brief History 67yo M with history CVA, a PEG tube placed by GI on 11/06 presented (11/12) from rehab for respiratory failure, sepsis, hypotension and multilober PNA. Recent work-up for hypotension showed a dislodged PEG tube on CT scan with extraluminal PO contrast that was limited to the upper abdomen and left gutter. Pt had an EGD on 11/18 that did not show the PEG button or an obvious hole in the stomach. There was no free air noted on CXR's. Pt had IR guided drainage placed in the 3 different locations of abdomen. He is now s/p trach by ENT. Recent Ct abdoemn/pelvis on 12/04/17 showed persistent abdominal collection of abscess/fluid and s/p repeat drainage 12/06/17 Hospitalist Physical General appearance: Present: no acute distress - EENT Eyes: Present: PERRL ENT: clear oral mucosa - Neck Neck: Present: supple, other (status post tracheostomy on T-piece) - Respiratory Respiratory effort: normal Respiratory: bilateral: CTA - Cardiovascular Rhythm: other (tachycardia) Heart Sounds: Present: S1 & S2 - Extremities Extremity abnormal: edema (in BLE) - Abdominal General gastrointestinal: non-distended, distended, normal bowel sounds, other ( firm on palpation), total [address] - Neurologic Neurologic: other (patient is awake but unable to follow commands) Subjective Date of service: 12/08/17 Principal diagnosis: Acute hypoxic respiratory failure, s/p Trach Interval history: Pt seen and examined, nonverbal No acute event reported by RN discussed plan of care with RN at bedside Objective - Constitutional Vitals: Vital Signs - 12hr 12/08/17 12/08/17 12/08/17 05:00 06:00 07:00 Temperature Pulse Rate 100 H 98 H 90 Pulse Rate [ Right From Monitor] Respiratory 18 22 28 H Rate Blood Pressure 133/69 149/85 123/68 O2 Sat by Pulse 100 100 100 Oximetry O2 Sat by Pulse Oximetry [ Assessment] 12/08/17 12/08/17 12/08/17 07:57 07:59 08:00 Temperature 99.2 F 99.2 F Pulse Rate 102 H Pulse Rate [ 99 H Right From Monitor] Respiratory 24 27 H Rate Blood Pressure 146/78 O2 Sat by Pulse 99 99 Oximetry O2 Sat by Pulse 100 Oximetry [ Assessment] 12/08/17 12/08/17 12/08/17 09:00 09:01 10:00 Temperature Pulse Rate 100 H 93 H Pulse Rate [ Right From Monitor] Respiratory 35 H 28 H Rate Blood Pressure 140/75 123/68 O2 Sat by Pulse 100 100 99 Oximetry O2 Sat by Pulse Oximetry [ Assessment] 12/08/17 12/08/17 12/08/17 11:00 12:00 13:00 Temperature 99.1 F Pulse Rate 103 H 103 H 89 Pulse Rate [ Right From Monitor] Respiratory 26 H 30 H 26 H Rate Blood Pressure 137/82 125/72 123/71 O2 Sat by Pulse 100 100 100 Oximetry O2 Sat by Pulse Oximetry [ Assessment] 12/08/17 12/08/17 14:00 15:00 Temperature Pulse Rate 100 H 104 H Pulse Rate [ Right From Monitor] Respiratory 31 H 24 Rate Blood Pressure 134/80 142/84 O2 Sat by Pulse 100 100 Oximetry O2 Sat by Pulse Oximetry [ Assessment] - Labs CBC & Chem 7: 12/08/17 05:10 12/08/17 05:10 Labs: Abnormal lab results 12/07/17 12/07/17 12/08/17 Range/Units 18:03 23:33 05:10 RBC 2.91 L (3.65-5.03) M/mm3 Hgb 7.5 L (11.8-15.2) gm/dl Hct 24.4 L (35.5-45.6) % MCH 26 L (28-32) pg MCHC 31 L (32-34) % RDW 19.7 H (13.2-15.2) % Plt Count 109 L (140-440) K/mm3 Lymphocytes % (Manual) 11.0 L (13.4-35.0) % Eosinophils % (Manual) 12.0 H (0.0-4.3) % Lymphocytes # (Manual) 0.7 L (1.2-5.4) K/mm3 Eosinophils # (Manual) 0.7 H (0.0-0.4) K/mm3 Sodium (137-145) mmol/L Chloride (98-107) mmol/L Creatinine (0.8-1.5) mg/dL POC Glucose 143 H 107 H (70-105) Calcium (8.4-10.2) mg/dL 12/08/17 Range/Units 05:10 RBC (3.65-5.03) M/mm3 Hgb (11.8-15.2) gm/dl Hct (35.5-45.6) % MCH (28-32) pg MCHC (32-34) % RDW (13.2-15.2) % Plt Count (140-440) K/mm3 Lymphocytes % (Manual) (13.4-35.0) % Eosinophils % (Manual) (0.0-4.3) % Lymphocytes # (Manual) (1.2-5.4) K/mm3 Eosinophils # (Manual) (0.0-0.4) K/mm3 Sodium 147 H (137-145) mmol/L Chloride 110.4 H (98-107) mmol/L Creatinine 2.8 H (0.8-1.5) mg/dL POC Glucose (70-105) Calcium 7.8 L (8.4-10.2) mg/dL
--- NOTE | 2017-12-08 17:14 | Event Note ---
Date: 12/08/17 Pt currently in the [facility]. He's currently on HD through a left femoral vas cath. Discussed with the Hospitalist requesting Upper body PC placement and will need PICC line for iv abx upon discharge. Pt s/p repeated ctg drainage of the abd. Will plan on PC and PICC line placement near time of d/c in prep outpt HD and ABX.
[2017-12-08] MEDS: SODIUM CHLORIDE FLUSH SYRINGE 10 ML IV SCH ×2 (18:28→22:30)
[2017-12-09 04:58] LABS: Hematocrit 23.2 % (35.5-45.6); Hemoglobin 7.2 gm/dl (11.8-15.2)
[2017-12-09 05:45] LABS: Calcium 7.7 mg/dL (8.4-10.2)
--- NOTE | 2017-12-09 09:56 | Progress Note ---
Assessment and Plan Acute respiratory failure. Trach ESRD Sepsis,post PEG related spillage or peritonitis.Multiple drainages in plase. reviewed with at the bedside,improved drainage today Stroke Acute kidney injury. Worsening creatinine Recommendations Continue ABX Drainage,surgery care Nebs as needed for chest congestion,suction PO water sips, monitor hypernatremia HD per nephrology.Perm Cath and PICC planned Aspiration precautions DVT prophylaxis Discussed with staff. No family at the bedside Subjective Date of service: 12/09/17 Principal diagnosis: Acute hypoxic respiratory failure, s/p Trach Interval history: No pain,SOB ?. No events overnightAwake, on HD Objective Vital Signs - 12hr 12/08/17 12/08/17 12/08/17 22:00 23:00 23:54 Temperature Pulse Rate 92 H 94 H 106 H Respiratory 21 28 H 21 Rate Blood Pressure 115/67 114/67 119/68 O2 Sat by Pulse 100 100 100 Oximetry O2 Sat by Pulse Oximetry [ Assessment] 12/09/17 12/09/17 12/09/17 00:00 01:00 02:00 Temperature 99.7 F H Pulse Rate 106 H 106 H 111 H Respiratory 30 H 30 H 18 Rate Blood Pressure 138/76 135/74 140/77 O2 Sat by Pulse 100 100 100 Oximetry O2 Sat by Pulse Oximetry [ Assessment] 12/09/17 12/09/17 12/09/17 03:00 04:00 05:00 Temperature 98.8 F Pulse Rate 106 H 89 91 H Respiratory 33 H 30 H 28 H Rate Blood Pressure 156/88 140/77 131/82 O2 Sat by Pulse 100 100 98 Oximetry O2 Sat by Pulse Oximetry [ Assessment] 12/09/17 12/09/17 12/09/17 06:00 07:00 08:00 Temperature Pulse Rate 105 H 99 H Respiratory 33 H 20 Rate Blood Pressure 166/94 155/92 O2 Sat by Pulse 100 100 Oximetry O2 Sat by Pulse 100 Oximetry [ Assessment] 12/09/17 08:34 Temperature Pulse Rate Respiratory Rate Blood Pressure O2 Sat by Pulse 100 Oximetry O2 Sat by Pulse Oximetry [ Assessment] Constitutional: alert Eyes: non-icteric ENT: oropharynx moist Neck: supple (trach in position), no JVD Effort: normal Ascultation: Bilateral: clear, rhonchi (bilateral) Cardiovascular: regular rate and rhythm Gastrointestinal: normoactive bowel sounds, soft, non-tender, other (drainages in place) Integumentary: normal Extremities: no cyanosis, pink and warm, anasarca Neurologic: other (L hemiparesis) Psychiatric: other (unable to assess) CBC and BMP: 12/09/17 04:18 12/09/17 04:18 ABG, PT/INR, D-dimer: ABG POC ABG pH 7.505 (7.35-7.45) H 11/23/17 04:56 POC ABG pCO2 26.3 (35-45) L 11/23/17 04:56 POC ABG pO2 100 (80-105) 11/23/17 04:56 POC ABG HCO3 20.8 11/23/17 04:56 POC ABG Total CO2 22 11/23/17 04:56 POC ABG O2 Sat 98 11/23/17 04:56 PT/INR, D-dimer PT 23.6 Sec. (12.2-14.9) H 11/26/17 06:29 INR 1.96 (0.87-1.13) H 11/26/17 06:29 Abnormal lab findings: Abnormal Labs 11/11/17 11/11/17 11/11/17 23:18 23:20 23:20 WBC RBC Hgb 10.4 L Hct 32.6 L D MCV MCH 27 L MCHC RDW 17.4 H Plt Count 105 L Lymph % (Auto) Haines % (Auto) Eos % (Auto) Lymph # Haines # Eos # Seg Neutrophils % Seg Neuts % (Manual) Lymphocytes % (Manual) 8.0 L Monocytes % (Manual) Eosinophils % (Manual) Nucleated RBC % 1.0 H Seg Neutrophils # Seg Neutrophils # Man Lymphocytes # (Manual) 0.7 L Monocytes # (Manual) Eosinophils # (Manual) PT INR POC ABG pH 7.550 H POC ABG pCO2 31.6 L POC ABG pO2 Sodium 146 H Potassium Chloride Carbon Dioxide BUN 26 H Creatinine 1.7 H D Glucose 133 H POC Glucose Lactic Acid Calcium Magnesium AST ALT Alkaline Phosphatase Troponin T 0.117 H* C-Reactive Protein Total Protein Albumin 2.5 L LDL Cholesterol Direct 42 L HDL Cholesterol 24 L Hepatitis C Antibody Crossmatch 11/11/17 11/12/17 11/12/17 23:20 00:23 00:23 WBC RBC Hgb Hct MCV MCH MCHC RDW Plt Count Lymph % (Auto) Haines % (Auto) Eos % (Auto) Lymph # Haines # Eos # Seg Neutrophils % Seg Neuts % (Manual) Lymphocytes % (Manual) Monocytes % (Manual) Eosinophils % (Manual) Nucleated RBC % Seg Neutrophils # Seg Neutrophils # Man Lymphocytes # (Manual) Monocytes # (Manual) Eosinophils # (Manual) PT 16.7 H INR 1.28 H POC ABG pH POC ABG pCO2 POC ABG pO2 Sodium Potassium Chloride Carbon Dioxide BUN Creatinine Glucose POC Glucose Lactic Acid 3.20 H* Calcium Magnesium AST ALT Alkaline Phosphatase Troponin T C-Reactive Protein 25.70 H Total Protein Albumin LDL Cholesterol Direct HDL Cholesterol Hepatitis C Antibody Crossmatch 11/12/17 11/12/17 11/12/17 00:46 01:27 01:27 WBC RBC Hgb Hct MCV MCH MCHC RDW Plt Count Lymph % (Auto) Haines % (Auto) Eos % (Auto) Lymph # Haines # Eos # Seg Neutrophils % Seg Neuts % (Manual) Lymphocytes % (Manual) Monocytes % (Manual) Eosinophils % (Manual) Nucleated RBC % Seg Neutrophils # Seg Neutrophils # Man Lymphocytes # (Manual) Monocytes # (Manual) Eosinophils # (Manual) PT INR POC ABG pH 7.495 H POC ABG pCO2 32.0 L POC ABG pO2 64 L Sodium Potassium Chloride Carbon Dioxide BUN Creatinine Glucose POC Glucose Lactic Acid 3.70 H* Calcium Magnesium AST ALT Alkaline Phosphatase Troponin T 0.096 H C-Reactive Protein Total Protein Albumin LDL Cholesterol Direct HDL Cholesterol Hepatitis C Antibody Crossmatch 11/12/17 11/12/17 11/12/17 03:21 04:50 06:27 WBC RBC Hgb Hct MCV MCH MCHC RDW Plt Count Lymph % (Auto) Haines % (Auto) Eos % (Auto) Lymph # Haines # Eos # Seg Neutrophils % Seg Neuts % (Manual) Lymphocytes % (Manual) Monocytes % (Manual) Eosinophils % (Manual) Nucleated RBC % Seg Neutrophils # Seg Neutrophils # Man Lymphocytes # (Manual) Monocytes # (Manual) Eosinophils # (Manual) PT INR POC ABG pH POC ABG pCO2 POC ABG pO2 109 H Sodium Potassium Chloride Carbon Dioxide BUN Creatinine Glucose POC Glucose Lactic Acid 3.80 H* 2.20 H* Calcium Magnesium AST ALT Alkaline Phosphatase Troponin T C-Reactive Protein Total Protein Albumin LDL Cholesterol Direct HDL Cholesterol Hepatitis C Antibody Crossmatch 11/12/17 11/12/17 11/12/17 09:24 09:24 09:24 WBC RBC Hgb 10.4 L Hct 33.4 L MCV MCH MCHC RDW Plt Count Lymph % (Auto) Haines % (Auto) Eos % (Auto) Lymph # Haines # Eos # Seg Neutrophils % Seg Neuts % (Manual) Lymphocytes % (Manual) Monocytes % (Manual) Eosinophils % (Manual) Nucleated RBC % Seg Neutrophils # Seg Neutrophils # Man Lymphocytes # (Manual) Monocytes # (Manual) Eosinophils # (Manual) PT INR POC ABG pH POC ABG pCO2 POC ABG pO2 Sodium Potassium Chloride Carbon Dioxide BUN Creatinine Glucose POC Glucose Lactic Acid 2.90 H* Calcium Magnesium AST ALT Alkaline Phosphatase Troponin T 0.091 H C-Reactive Protein Total Protein Albumin LDL Cholesterol Direct HDL Cholesterol Hepatitis C Antibody Crossmatch 11/12/17 11/12/17 11/12/17 12:56 20:03 Unknown WBC RBC Hgb Hct MCV MCH MCHC RDW Plt Count Lymph % (Auto) Haines % (Auto) Eos % (Auto) Lymph # Haines # Eos # Seg Neutrophils % Seg Neuts % (Manual) Lymphocytes % (Manual) Monocytes % (Manual) Eosinophils % (Manual) Nucleated RBC % Seg Neutrophils # Seg Neutrophils # Man Lymphocytes # (Manual) Monocytes # (Manual) Eosinophils # (Manual) PT INR POC ABG pH POC ABG pCO2 POC ABG pO2 Sodium Potassium Chloride Carbon Dioxide BUN Creatinine Glucose POC Glucose Lactic Acid 3.60 H* Calcium Magnesium AST ALT Alkaline Phosphatase Troponin T 0.102 H* 0.156 H* D C-Reactive Protein Total Protein Albumin LDL Cholesterol Direct HDL Cholesterol Hepatitis C Antibody Crossmatch 11/12/17 11/13/17 11/13/17 Unknown 04:50 04:50 WBC 12.2 H RBC 3.51 L Hgb 9.3 L Hct 30.1 L MCV MCH 26 L MCHC 31 L RDW 18.0 H Plt Count 128 L Lymph % (Auto) 8.6 L Haines % (Auto) 11.1 H Eos % (Auto) Lymph # 1.1 L Haines # 1.4 H Eos # Seg Neutrophils % 80.1 H Seg Neuts % (Manual) Lymphocytes % (Manual) Monocytes % (Manual) Eosinophils % (Manual) Nucleated RBC % Seg Neutrophils # 9.8 H Seg Neutrophils # Man Lymphocytes # (Manual) Monocytes # (Manual) Eosinophils # (Manual) PT INR POC ABG pH POC ABG pCO2 POC ABG pO2 Sodium 149 H Potassium 5.1 H Chloride 114.4 H Carbon Dioxide 18 L BUN 52 H Creatinine 3.3 H D Glucose 129 H POC Glucose Lactic Acid Calcium 7.9 L Magnesium AST ALT Alkaline Phosphatase Troponin T 0.098 H C-Reactive Protein Total Protein Albumin LDL Cholesterol Direct HDL Cholesterol Hepatitis C Antibody Crossmatch 11/13/17 11/13/17 11/14/17 04:51 09:34 04:21 WBC RBC Hgb Hct MCV MCH MCHC RDW Plt Count Lymph % (Auto) Haines % (Auto) Eos % (Auto) Lymph # Haines # Eos # Seg Neutrophils % Seg Neuts % (Manual) Lymphocytes % (Manual) Monocytes % (Manual) Eosinophils % (Manual) Nucleated RBC % Seg Neutrophils # Seg Neutrophils # Man Lymphocytes # (Manual) Monocytes # (Manual) Eosinophils # (Manual) PT INR POC ABG pH POC ABG pCO2 30.1 L 29.8 L POC ABG pO2 135 H Sodium Potassium Chloride Carbon Dioxide BUN Creatinine Glucose POC Glucose Lactic Acid 2.10 H* Calcium Magnesium AST ALT Alkaline Phosphatase Troponin T C-Reactive Protein Total Protein Albumin LDL Cholesterol Direct HDL Cholesterol Hepatitis C Antibody Crossmatch 11/15/17 11/15/17 11/16/17 04:52 15:50 05:17 WBC RBC Hgb Hct MCV MCH MCHC RDW Plt Count Lymph % (Auto) Haines % (Auto) Eos % (Auto) Lymph # Haines # Eos # Seg Neutrophils % Seg Neuts % (Manual) Lymphocytes % (Manual) Monocytes % (Manual) Eosinophils % (Manual) Nucleated RBC % Seg Neutrophils # Seg Neutrophils # Man Lymphocytes # (Manual) Monocytes # (Manual) Eosinophils # (Manual) PT INR POC ABG pH POC ABG pCO2 29.5 L 31.5 L POC ABG pO2 115 H 122 H Sodium 154 H Potassium Chloride 117.9 H Carbon Dioxide 19 L BUN 87 H Creatinine 4.1 H Glucose POC Glucose Lactic Acid Calcium 8.1 L Magnesium AST ALT Alkaline Phosphatase Troponin T C-Reactive Protein Total Protein Albumin LDL Cholesterol Direct HDL Cholesterol Hepatitis C Antibody Crossmatch 11/16/17 11/17/17 11/17/17 16:37 04:07 10:00 WBC 14.7 H RBC 3.23 L Hgb 8.3 L Hct 28.1 L MCV MCH 26 L MCHC 30 L RDW 18.8 H Plt Count Lymph % (Auto) Haines % (Auto) Eos % (Auto) Lymph # Haines # Eos # Seg Neutrophils % Seg Neuts % (Manual) 75 H Lymphocytes % (Manual) 8.0 L Monocytes % (Manual) Eosinophils % (Manual) Nucleated RBC % 1.0 H Seg Neutrophils # Seg Neutrophils # Man 11.0 H Lymphocytes # (Manual) Monocytes # (Manual) 0.9 H Eosinophils # (Manual) PT INR POC ABG pH POC ABG pCO2 POC ABG pO2 Sodium 153 H 155 H Potassium Chloride 117.3 H 119.4 H Carbon Dioxide 19 L 20 L BUN 90 H 89 H Creatinine 3.9 H 3.6 H Glucose 111 H 115 H POC Glucose Lactic Acid Calcium 8.1 L 8.0 L Magnesium AST ALT Alkaline Phosphatase Troponin T C-Reactive Protein Total Protein Albumin LDL Cholesterol Direct HDL Cholesterol Hepatitis C Antibody Crossmatch 11/18/17 11/18/17 11/18/17 04:34 04:34 04:34 WBC 15.5 H RBC 3.13 L Hgb 8.1 L Hct 26.3 L MCV MCH 26 L MCHC 31 L RDW 18.6 H Plt Count Lymph % (Auto) Haines % (Auto) Eos % (Auto) Lymph # Haines # Eos # Seg Neutrophils % Seg Neuts % (Manual) 81.0 H Lymphocytes % (Manual) 7.0 L Monocytes % (Manual) Eosinophils % (Manual) Nucleated RBC % 1.0 H Seg Neutrophils # Seg Neutrophils # Man 12.6 H Lymphocytes # (Manual) 1.1 L Monocytes # (Manual) Eosinophils # (Manual) PT 16.7 H INR 1.30 H POC ABG pH POC ABG pCO2 POC ABG pO2 Sodium 155 H Potassium 3.2 L Chloride 121.0 H Carbon Dioxide 20 L BUN 74 H Creatinine 2.9 H Glucose 126 H POC Glucose Lactic Acid Calcium 7.9 L Magnesium AST ALT Alkaline Phosphatase Troponin T C-Reactive Protein Total Protein Albumin LDL Cholesterol Direct HDL Cholesterol Hepatitis C Antibody Crossmatch 11/19/17 11/19/17 11/20/17 04:44 04:44 00:38 WBC 19.0 H 22.2 H RBC 3.20 L 3.17 L Hgb 8.4 L 7.9 L Hct 27.9 L 26.4 L MCV 83 L MCH 26 L 25 L MCHC 30 L 30 L RDW 19.1 H 18.9 H Plt Count Lymph % (Auto) Haines % (Auto) Eos % (Auto) Lymph # Haines # Eos # Seg Neutrophils % Seg Neuts % (Manual) 83.0 H Lymphocytes % (Manual) 3.0 L Monocytes % (Manual) 9.0 H Eosinophils % (Manual) Nucleated RBC % Seg Neutrophils # Seg Neutrophils # Man 18.4 H Lymphocytes # (Manual) 0.7 L Monocytes # (Manual) 2.0 H Eosinophils # (Manual) PT INR POC ABG pH POC ABG pCO2 POC ABG pO2 Sodium 152 H Potassium Chloride 117.1 H Carbon Dioxide 17 L BUN 66 H Creatinine 2.8 H Glucose 119 H POC Glucose Lactic Acid Calcium 7.8 L Magnesium 2.70 H AST ALT Alkaline Phosphatase Troponin T C-Reactive Protein Total Protein Albumin LDL Cholesterol Direct HDL Cholesterol Hepatitis C Antibody Crossmatch 11/20/17 11/20/17 11/20/17 03:29 04:48 13:38 WBC RBC Hgb Hct MCV MCH MCHC RDW Plt Count Lymph % (Auto) Haines % (Auto) Eos % (Auto) Lymph # Haines # Eos # Seg Neutrophils % Seg Neuts % (Manual) Lymphocytes % (Manual) Monocytes % (Manual) Eosinophils % (Manual) Nucleated RBC % Seg Neutrophils # Seg Neutrophils # Man Lymphocytes # (Manual) Monocytes # (Manual) Eosinophils # (Manual) PT INR POC ABG pH POC ABG pCO2 29.4 L POC ABG pO2 Sodium 148 H Potassium 3.4 L Chloride 113.7 H Carbon Dioxide 18 L BUN 59 H Creatinine 2.7 H Glucose 113 H POC Glucose 128 H Lactic Acid Calcium 7.8 L Magnesium AST ALT Alkaline Phosphatase Troponin T C-Reactive Protein Total Protein Albumin LDL Cholesterol Direct HDL Cholesterol Hepatitis C Antibody Crossmatch 11/20/17 11/20/17 11/21/17 17:38 23:40 00:13 WBC RBC Hgb 8.4 L Hct 28.0 L MCV MCH MCHC RDW Plt Count Lymph % (Auto) Haines % (Auto) Eos % (Auto) Lymph # Haines # Eos # Seg Neutrophils % Seg Neuts % (Manual) Lymphocytes % (Manual) Monocytes % (Manual) Eosinophils % (Manual) Nucleated RBC % Seg Neutrophils # Seg Neutrophils # Man Lymphocytes # (Manual) Monocytes # (Manual) Eosinophils # (Manual) PT INR POC ABG pH POC ABG pCO2 POC ABG pO2 Sodium Potassium Chloride Carbon Dioxide BUN Creatinine Glucose POC Glucose 115 H 145 H Lactic Acid Calcium Magnesium AST ALT Alkaline Phosphatase Troponin T C-Reactive Protein Total Protein Albumin LDL Cholesterol Direct HDL Cholesterol Hepatitis C Antibody Crossmatch 11/21/17 11/21/17 11/21/17 04:30 04:30 04:58 WBC 21.0 H RBC Hgb 9.6 L Hct 32.7 L MCV MCH 25 L MCHC 29 L RDW 19.7 H Plt Count 746 H Lymph % (Auto) Haines % (Auto) Eos % (Auto) Lymph # Haines # Eos # Seg Neutrophils % Seg Neuts % (Manual) Lymphocytes % (Manual) Monocytes % (Manual) Eosinophils % (Manual) Nucleated RBC % Seg Neutrophils # Seg Neutrophils # Man Lymphocytes # (Manual) Monocytes # (Manual) Eosinophils # (Manual) PT INR POC ABG pH POC ABG pCO2 POC ABG pO2 Sodium Potassium Chloride 109.4 H Carbon Dioxide 14 L BUN 59 H Creatinine 3.0 H Glucose 137 H POC Glucose 132 H Lactic Acid Calcium 7.6 L Magnesium AST ALT Alkaline Phosphatase Troponin T C-Reactive Protein Total Protein Albumin LDL Cholesterol Direct HDL Cholesterol Hepatitis C Antibody Crossmatch 11/21/17 11/21/17 11/21/17 06:30 13:43 14:17 WBC 38.2 H RBC Hgb 9.0 L Hct 32.3 L MCV MCH 25 L MCHC 28 L RDW 20.0 H Plt Count 766 H Lymph % (Auto) Haines % (Auto) Eos % (Auto) Lymph # Haines # Eos # Seg Neutrophils % Seg Neuts % (Manual) 85.0 H Lymphocytes % (Manual) 1.0 L Monocytes % (Manual) Eosinophils % (Manual) Nucleated RBC % 2.0 H Seg Neutrophils # Seg Neutrophils # Man 32.5 H Lymphocytes # (Manual) 0.4 L Monocytes # (Manual) 2.3 H Eosinophils # (Manual) PT INR POC ABG pH POC ABG pCO2 18.6 L POC ABG pO2 121 H Sodium 146 H Potassium Chloride 110.9 H Carbon Dioxide 11 L BUN 62 H Creatinine 4.0 H Glucose 64 L POC Glucose Lactic Acid Calcium 7.6 L Magnesium AST ALT Alkaline Phosphatase Troponin T C-Reactive Protein Total Protein Albumin LDL Cholesterol Direct HDL Cholesterol Hepatitis C Antibody Crossmatch 11/21/17 11/21/1711/22/18 14:17 19:09 00:05 WBC RBC Hgb Hct MCV MCH MCHC RDW Plt Count Lymph % (Auto) Haines % (Auto) Eos % (Auto) Lymph # Haines # Eos # Seg Neutrophils % Seg Neuts % (Manual) Lymphocytes % (Manual) Monocytes % (Manual) Eosinophils % (Manual) Nucleated RBC % Seg Neutrophils # Seg Neutrophils # Man Lymphocytes # (Manual) Monocytes # (Manual) Eosinophils # (Manual) PT INR POC ABG pH POC ABG pCO2 20.0 L POC ABG pO2 Sodium Potassium Chloride Carbon Dioxide BUN Creatinine Glucose POC Glucose 127 H Lactic Acid 7.70 H* Calcium Magnesium AST ALT Alkaline Phosphatase Troponin T C-Reactive Protein Total Protein Albumin LDL Cholesterol Direct HDL Cholesterol Hepatitis C Antibody Crossmatch 11/22/17 11/22/17 11/22/17 03:53 06:00 07:25 WBC RBC Hgb Hct MCV MCH MCHC RDW Plt Count Lymph % (Auto) Haines % (Auto) Eos % (Auto) Lymph # Haines # Eos # Seg Neutrophils % Seg Neuts % (Manual) Lymphocytes % (Manual) Monocytes % (Manual) Eosinophils % (Manual) Nucleated RBC % Seg Neutrophils # Seg Neutrophils # Man Lymphocytes # (Manual) Monocytes # (Manual) Eosinophils # (Manual) PT INR POC ABG pH POC ABG pCO2 22.2 L POC ABG pO2 Sodium 147 H Potassium Chloride 111.9 H Carbon Dioxide 16 L BUN 72 H Creatinine 5.1 H Glucose 181 H POC Glucose 180 H Lactic Acid Calcium 7.1 L Magnesium AST ALT Alkaline Phosphatase Troponin T C-Reactive Protein Total Protein Albumin LDL Cholesterol Direct HDL Cholesterol Hepatitis C Antibody Crossmatch 11/22/17 11/22/17 11/22/17 07:25 07:25 12:05 WBC 31.4 H RBC 3.22 L Hgb 8.0 L Hct 26.7 L MCV 83 L MCH 25 L MCHC 30 L RDW 19.4 H Plt Count 602 H Lymph % (Auto) Haines % (Auto) Eos % (Auto) Lymph # Haines # Eos # Seg Neutrophils % Seg Neuts % (Manual) Lymphocytes % (Manual) Monocytes % (Manual) Eosinophils % (Manual) Nucleated RBC % Seg Neutrophils # Seg Neutrophils # Man Lymphocytes # (Manual) Monocytes # (Manual) Eosinophils # (Manual) PT INR POC ABG pH POC ABG pCO2 POC ABG pO2 Sodium Potassium Chloride Carbon Dioxide BUN Creatinine Glucose POC Glucose 182 H Lactic Acid 5.00 H* Calcium Magnesium AST ALT Alkaline Phosphatase Troponin T C-Reactive Protein Total Protein Albumin LDL Cholesterol Direct HDL Cholesterol Hepatitis C Antibody Crossmatch 11/22/17 11/23/17 11/23/17 19:45 01:28 04:56 WBC RBC Hgb Hct MCV MCH MCHC RDW Plt Count Lymph % (Auto) Haines % (Auto) Eos % (Auto) Lymph # Haines # Eos # Seg Neutrophils % Seg Neuts % (Manual) Lymphocytes % (Manual) Monocytes % (Manual) Eosinophils % (Manual) Nucleated RBC % Seg Neutrophils # Seg Neutrophils # Man Lymphocytes # (Manual) Monocytes # (Manual) Eosinophils # (Manual) PT INR POC ABG pH 7.505 H POC ABG pCO2 26.3 L POC ABG pO2 Sodium Potassium Chloride Carbon Dioxide BUN Creatinine Glucose POC Glucose 165 H Lactic Acid Calcium Magnesium AST ALT Alkaline Phosphatase Troponin T C-Reactive Protein Total Protein Albumin LDL Cholesterol Direct HDL Cholesterol Hepatitis C Antibody Reactive A Crossmatch 11/23/17 11/23/17 11/23/17 07:05 12:32 17:53 WBC RBC Hgb Hct MCV MCH MCHC RDW Plt Count Lymph % (Auto) Haines % (Auto) Eos % (Auto) Lymph # Haines # Eos # Seg Neutrophils % Seg Neuts % (Manual) Lymphocytes % (Manual) Monocytes % (Manual) Eosinophils % (Manual) Nucleated RBC % Seg Neutrophils # Seg Neutrophils # Man Lymphocytes # (Manual) Monocytes # (Manual) Eosinophils # (Manual) PT INR POC ABG pH POC ABG pCO2 POC ABG pO2 Sodium Potassium Chloride Carbon Dioxide 18 L BUN 61 H Creatinine 4.2 H Glucose 153 H POC Glucose 138 H 173 H Lactic Acid Calcium 7.5 L Magnesium AST ALT Alkaline Phosphatase Troponin T C-Reactive Protein Total Protein Albumin LDL Cholesterol Direct HDL Cholesterol Hepatitis C Antibody Crossmatch 11/23/17 11/24/17 11/24/17 23:41 05:42 05:42 WBC 21.5 H RBC 2.48 L Hgb 6.2 L Hct 20.3 L D MCV 82 L MCH 25 L MCHC 31 L RDW 18.9 H Plt Count Lymph % (Auto) Haines % (Auto) Eos % (Auto) Lymph # Haines # Eos # Seg Neutrophils % Seg Neuts % (Manual) 94.0 H Lymphocytes % (Manual) 3.0 L Monocytes % (Manual) Eosinophils % (Manual) Nucleated RBC % Seg Neutrophils # Seg Neutrophils # Man 20.2 H Lymphocytes # (Manual) 0.6 L Monocytes # (Manual) Eosinophils # (Manual) PT INR POC ABG pH POC ABG pCO2 POC ABG pO2 Sodium 149 H Potassium 2.8 L* D Chloride 113.9 H Carbon Dioxide 19 L BUN 31 H Creatinine 2.3 H Glucose 103 H POC Glucose 133 H Lactic Acid Calcium 5.3 L* D Magnesium 1.30 L AST ALT Alkaline Phosphatase Troponin T C-Reactive Protein Total Protein Albumin LDL Cholesterol Direct HDL Cholesterol Hepatitis C Antibody Crossmatch 11/24/17 11/24/17 11/24/17 05:42 08:27 08:27 WBC RBC Hgb Hct MCV MCH MCHC RDW Plt Count Lymph % (Auto) Haines % (Auto) Eos % (Auto) Lymph # Haines # Eos # Seg Neutrophils % Seg Neuts % (Manual) Lymphocytes % (Manual) Monocytes % (Manual) Eosinophils % (Manual) Nucleated RBC % Seg Neutrophils # Seg Neutrophils # Man Lymphocytes # (Manual) Monocytes # (Manual) Eosinophils # (Manual) PT INR POC ABG pH POC ABG pCO2 POC ABG pO2 Sodium Potassium Chloride Carbon Dioxide BUN Creatinine Glucose POC Glucose Lactic Acid 5.40 H* 5.20 H* Calcium Magnesium AST ALT Alkaline Phosphatase Troponin T C-Reactive Protein Total Protein Albumin LDL Cholesterol Direct HDL Cholesterol Hepatitis C Antibody Crossmatch See Detail 11/24/17 11/24/17 11/24/17 12:13 17:22 21:53 WBC 23.0 H RBC 3.32 L Hgb 8.8 L Hct 27.1 L D MCV 82 L MCH 26 L MCHC RDW 17.3 H Plt Count Lymph % (Auto) Haines % (Auto) Eos % (Auto) Lymph # Haines # Eos # Seg Neutrophils % Seg Neuts % (Manual) Lymphocytes % (Manual) Monocytes % (Manual) Eosinophils % (Manual) Nucleated RBC % Seg Neutrophils # Seg Neutrophils # Man Lymphocytes # (Manual) Monocytes # (Manual) Eosinophils # (Manual) PT INR POC ABG pH POC ABG pCO2 POC ABG pO2 Sodium Potassium Chloride Carbon Dioxide BUN Creatinine Glucose POC Glucose 138 H 180 H Lactic Acid Calcium Magnesium AST ALT Alkaline Phosphatase Troponin T C-Reactive Protein Total Protein Albumin LDL Cholesterol Direct HDL Cholesterol Hepatitis C Antibody Crossmatch 09/07/0811/24/17 11/25/17 21:53 23:28 04:19 WBC RBC Hgb Hct MCV MCH MCHC RDW Plt Count Lymph % (Auto) Haines % (Auto) Eos % (Auto) Lymph # Haines # Eos # Seg Neutrophils % Seg Neuts % (Manual) Lymphocytes % (Manual) Monocytes % (Manual) Eosinophils % (Manual) Nucleated RBC % Seg Neutrophils # Seg Neutrophils # Man Lymphocytes # (Manual) Monocytes # (Manual) Eosinophils # (Manual) PT INR POC ABG pH POC ABG pCO2 POC ABG pO2 Sodium Potassium Chloride 96.3 L Carbon Dioxide BUN 28 H 31 H Creatinine 2.3 H 2.6 H Glucose 125 H 101 H POC Glucose 111 H Lactic Acid Calcium 7.5 L D 7.4 L Magnesium AST 170 H ALT 179 H Alkaline Phosphatase 175 H Troponin T C-Reactive Protein Total Protein 5.5 L Albumin 1.8 L LDL Cholesterol Direct HDL Cholesterol Hepatitis C Antibody Crossmatch 11/25/17 11/25/17 11/26/17 04:19 04:19 06:29 WBC 22.5 H RBC 3.48 L Hgb 9.1 L Hct 28.3 L MCV 81 L MCH 26 L MCHC RDW 17.4 H Plt Count Lymph % (Auto) Haines % (Auto) Eos % (Auto) Lymph # Haines # Eos # Seg Neutrophils % Seg Neuts % (Manual) Lymphocytes % (Manual) Monocytes % (Manual) Eosinophils % (Manual) Nucleated RBC % Seg Neutrophils # Seg Neutrophils # Man Lymphocytes # (Manual) Monocytes # (Manual) Eosinophils # (Manual) PT 23.6 H INR 1.96 H POC ABG pH POC ABG pCO2 POC ABG pO2 Sodium Potassium Chloride Carbon Dioxide BUN 31 H Creatinine 2.6 H Glucose 101 H POC Glucose Lactic Acid Calcium 7.5 L Magnesium AST ALT Alkaline Phosphatase Troponin T C-Reactive Protein Total Protein Albumin LDL Cholesterol Direct HDL Cholesterol Hepatitis C Antibody Crossmatch 11/26/17 11/27/17 11/27/17 06:34 04:06 04:06 WBC 11.3 H RBC 3.13 L Hgb 8.4 L Hct 25.8 L MCV 82 L MCH 27 L MCHC RDW 17.7 H Plt Count Lymph % (Auto) 7.4 L Haines % (Auto) Eos % (Auto) Lymph # 0.8 L Haines # Eos # Seg Neutrophils % 83.7 H Seg Neuts % (Manual) Lymphocytes % (Manual) Monocytes % (Manual) Eosinophils % (Manual) Nucleated RBC % Seg Neutrophils # 9.5 H Seg Neutrophils # Man Lymphocytes # (Manual) Monocytes # (Manual) Eosinophils # (Manual) PT INR POC ABG pH POC ABG pCO2 POC ABG pO2 Sodium Potassium Chloride 97.9 L Carbon Dioxide BUN 43 H 29 H Creatinine 3.5 H 2.9 H Glucose POC Glucose Lactic Acid Calcium 7.5 L 8.1 L Magnesium AST ALT Alkaline Phosphatase Troponin T C-Reactive Protein Total Protein Albumin LDL Cholesterol Direct HDL Cholesterol Hepatitis C Antibody Crossmatch 11/27/17 11/28/17 11/28/17 18:11 00:16 03:50 WBC RBC Hgb Hct MCV MCH MCHC RDW Plt Count Lymph % (Auto) Haines % (Auto) Eos % (Auto) Lymph # Haines # Eos # Seg Neutrophils % Seg Neuts % (Manual) Lymphocytes % (Manual) Monocytes % (Manual) Eosinophils % (Manual) Nucleated RBC % Seg Neutrophils # Seg Neutrophils # Man Lymphocytes # (Manual) Monocytes # (Manual) Eosinophils # (Manual) PT INR POC ABG pH POC ABG pCO2 POC ABG pO2 Sodium Potassium Chloride Carbon Dioxide BUN 39 H Creatinine 4.1 H Glucose 108 H POC Glucose 110 H 124 H Lactic Acid Calcium 7.9 L Magnesium AST ALT Alkaline Phosphatase Troponin T C-Reactive Protein Total Protein Albumin LDL Cholesterol Direct HDL Cholesterol Hepatitis C Antibody Crossmatch 11/28/17 11/28/17 11/28/17 05:03 11:36 17:42 WBC RBC Hgb Hct MCV MCH MCHC RDW Plt Count Lymph % (Auto) Haines % (Auto) Eos % (Auto) Lymph # Haines # Eos # Seg Neutrophils % Seg Neuts % (Manual) Lymphocytes % (Manual) Monocytes % (Manual) Eosinophils % (Manual) Nucleated RBC % Seg Neutrophils # Seg Neutrophils # Man Lymphocytes # (Manual) Monocytes # (Manual) Eosinophils # (Manual) PT INR POC ABG pH POC ABG pCO2 POC ABG pO2 Sodium Potassium Chloride Carbon Dioxide BUN Creatinine Glucose POC Glucose 134 H 114 H 119 H Lactic Acid Calcium Magnesium AST ALT Alkaline Phosphatase Troponin T C-Reactive Protein Total Protein Albumin LDL Cholesterol Direct HDL Cholesterol Hepatitis C Antibody Crossmatch 11/29/17 11/29/17 11/29/17 00:22 05:25 05:25 WBC 12.3 H RBC 3.34 L Hgb 8.6 L Hct 27.3 L MCV 82 L MCH 26 L MCHC RDW 18.5 H Plt Count Lymph % (Auto) 3.7 L Haines % (Auto) 7.7 H Eos % (Auto) Lymph # 0.5 L Haines # 1.0 H Eos # Seg Neutrophils % 86.5 H Seg Neuts % (Manual) Lymphocytes % (Manual) Monocytes % (Manual) Eosinophils % (Manual) Nucleated RBC % Seg Neutrophils # 10.7 H Seg Neutrophils # Man Lymphocytes # (Manual) Monocytes # (Manual) Eosinophils # (Manual) PT INR POC ABG pH POC ABG pCO2 POC ABG pO2 Sodium Potassium Chloride Carbon Dioxide BUN 29 H Creatinine 3.5 H Glucose 109 H POC Glucose 137 H Lactic Acid Calcium 7.8 L Magnesium AST ALT Alkaline Phosphatase Troponin T C-Reactive Protein Total Protein Albumin LDL Cholesterol Direct HDL Cholesterol Hepatitis C Antibody Crossmatch 11/29/17 11/30/17 11/30/17 05:26 00:26 04:17 WBC RBC Hgb Hct MCV MCH MCHC RDW Plt Count Lymph % (Auto) Haines % (Auto) Eos % (Auto) Lymph # Haines # Eos # Seg Neutrophils % Seg Neuts % (Manual) Lymphocytes % (Manual) Monocytes % (Manual) Eosinophils % (Manual) Nucleated RBC % Seg Neutrophils # Seg Neutrophils # Man Lymphocytes # (Manual) Monocytes # (Manual) Eosinophils # (Manual) PT INR POC ABG pH POC ABG pCO2 POC ABG pO2 Sodium Potassium Chloride Carbon Dioxide BUN 38 H Creatinine 4.3 H Glucose 109 H POC Glucose 129 H 152 H Lactic Acid Calcium 7.8 L Magnesium AST ALT Alkaline Phosphatase Troponin T C-Reactive Protein Total Protein Albumin LDL Cholesterol Direct HDL Cholesterol Hepatitis C Antibody Crossmatch 11/30/17 11/30/17 11/30/17 12:17 16:23 23:35 WBC RBC Hgb Hct MCV MCH MCHC RDW Plt Count Lymph % (Auto) Haines % (Auto) Eos % (Auto) Lymph # Haines # Eos # Seg Neutrophils % Seg Neuts % (Manual) Lymphocytes % (Manual) Monocytes % (Manual) Eosinophils % (Manual) Nucleated RBC % Seg Neutrophils # Seg Neutrophils # Man Lymphocytes # (Manual) Monocytes # (Manual) Eosinophils # (Manual) PT INR POC ABG pH POC ABG pCO2 POC ABG pO2 Sodium Potassium Chloride Carbon Dioxide BUN Creatinine Glucose POC Glucose 170 H 114 H 122 H Lactic Acid Calcium Magnesium AST ALT Alkaline Phosphatase Troponin T C-Reactive Protein Total Protein Albumin LDL Cholesterol Direct HDL Cholesterol Hepatitis C Antibody Crossmatch 12/01/17 12/01/17 12/01/17 04:09 04:09 12:17 WBC 14.1 H RBC 3.32 L Hgb 8.6 L Hct 27.0 L MCV 81 L MCH 26 L MCHC RDW 18.7 H Plt Count Lymph % (Auto) 5.5 L Haines % (Auto) 9.7 H Eos % (Auto) Lymph # 0.8 L Haines # 1.4 H Eos # Seg Neutrophils % 82.9 H Seg Neuts % (Manual) Lymphocytes % (Manual) Monocytes % (Manual) Eosinophils % (Manual) Nucleated RBC % Seg Neutrophils # 11.7 H Seg Neutrophils # Man Lymphocytes # (Manual) Monocytes # (Manual) Eosinophils # (Manual) PT INR POC ABG pH POC ABG pCO2 POC ABG pO2 Sodium Potassium 3.4 L Chloride Carbon Dioxide BUN 21 H Creatinine 3.0 H Glucose 108 H POC Glucose 126 H Lactic Acid Calcium 8.0 L Magnesium AST ALT Alkaline Phosphatase Troponin T C-Reactive Protein Total Protein Albumin LDL Cholesterol Direct HDL Cholesterol Hepatitis C Antibody Crossmatch 12/02/17 12/03/17 12/03/17 23:46 02:52 05:54 WBC 17.2 H RBC 3.21 L Hgb 8.5 L Hct 25.8 L MCV 80 L MCH 26 L MCHC RDW 18.4 H Plt Count 128 L Lymph % (Auto) Haines % (Auto) Eos % (Auto) Lymph # Haines # Eos # Seg Neutrophils % Seg Neuts % (Manual) Lymphocytes % (Manual) Monocytes % (Manual) Eosinophils % (Manual) Nucleated RBC % Seg Neutrophils # Seg Neutrophils # Man Lymphocytes # (Manual) Monocytes # (Manual) Eosinophils # (Manual) PT INR POC ABG pH POC ABG pCO2 POC ABG pO2 Sodium Potassium Chloride Carbon Dioxide BUN Creatinine Glucose POC Glucose 125 H 107 H Lactic Acid Calcium Magnesium AST ALT Alkaline Phosphatase Troponin T C-Reactive Protein Total Protein Albumin LDL Cholesterol Direct HDL Cholesterol Hepatitis C Antibody Crossmatch 12/03/17 12/03/17 12/04/17 12:05 Unknown 12:26 WBC RBC Hgb Hct MCV MCH MCHC RDW Plt Count Lymph % (Auto) Haines % (Auto) Eos % (Auto) Lymph # Haines # Eos # Seg Neutrophils % Seg Neuts % (Manual) Lymphocytes % (Manual) Monocytes % (Manual) Eosinophils % (Manual) Nucleated RBC % Seg Neutrophils # Seg Neutrophils # Man Lymphocytes # (Manual) Monocytes # (Manual) Eosinophils # (Manual) PT INR POC ABG pH POC ABG pCO2 POC ABG pO2 Sodium Potassium Chloride Carbon Dioxide BUN 21 H Creatinine 2.8 H Glucose 113 H POC Glucose 106 H 119 H Lactic Acid Calcium Magnesium AST ALT Alkaline Phosphatase Troponin T C-Reactive Protein Total Protein Albumin LDL Cholesterol Direct HDL Cholesterol Hepatitis C Antibody Crossmatch 12/04/17 12/05/17 12/05/17 17:57 00:52 04:05 WBC RBC 2.96 L Hgb 7.7 L Hct 24.2 L MCV 82 L MCH 26 L MCHC RDW 18.8 H Plt Count 105 L Lymph % (Auto) 10.6 L Haines % (Auto) 12.1 H Eos % (Auto) 5.2 H Lymph # 1.1 L Haines # 1.3 H Eos # 0.5 H Seg Neutrophils % 71.3 H Seg Neuts % (Manual) Lymphocytes % (Manual) Monocytes % (Manual) Eosinophils % (Manual) Nucleated RBC % Seg Neutrophils # Seg Neutrophils # Man Lymphocytes # (Manual) Monocytes # (Manual) Eosinophils # (Manual) PT INR POC ABG pH POC ABG pCO2 POC ABG pO2 Sodium Potassium Chloride Carbon Dioxide BUN Creatinine Glucose POC Glucose 140 H 117 H Lactic Acid Calcium Magnesium AST ALT Alkaline Phosphatase Troponin T C-Reactive Protein Total Protein Albumin LDL Cholesterol Direct HDL Cholesterol Hepatitis C Antibody Crossmatch 12/05/17 12/05/17 12/06/17 04:05 22:50 08:18 WBC RBC 2.80 L Hgb 7.4 L Hct 23.0 L MCV 82 L MCH 27 L MCHC RDW 19.5 H Plt Count 125 L Lymph % (Auto) Haines % (Auto) Eos % (Auto) Lymph # Haines # Eos # Seg Neutrophils % Seg Neuts % (Manual) Lymphocytes % (Manual) Monocytes % (Manual) Eosinophils % (Manual) Nucleated RBC % Seg Neutrophils # Seg Neutrophils # Man Lymphocytes # (Manual) Monocytes # (Manual) Eosinophils # (Manual) PT INR POC ABG pH POC ABG pCO2 POC ABG pO2 Sodium Potassium Chloride 107.4 H Carbon Dioxide BUN Creatinine 2.5 H Glucose POC Glucose 112 H Lactic Acid Calcium 8.3 L Magnesium AST ALT Alkaline Phosphatase Troponin T C-Reactive Protein Total Protein Albumin LDL Cholesterol Direct HDL Cholesterol Hepatitis C Antibody Crossmatch 12/06/17 12/06/17 12/06/17 08:18 12:01 23:58 WBC RBC Hgb Hct MCV MCH MCHC RDW Plt Count Lymph % (Auto) Haines % (Auto) Eos % (Auto) Lymph # Haines # Eos # Seg Neutrophils % Seg Neuts % (Manual) Lymphocytes % (Manual) Monocytes % (Manual) Eosinophils % (Manual) Nucleated RBC % Seg Neutrophils # Seg Neutrophils # Man Lymphocytes # (Manual) Monocytes # (Manual) Eosinophils # (Manual) PT INR POC ABG pH POC ABG pCO2 POC ABG pO2 Sodium Potassium Chloride 108.4 H Carbon Dioxide BUN 28 H Creatinine 3.7 H Glucose 103 H POC Glucose 106 H 108 H Lactic Acid Calcium 8.0 L Magnesium AST ALT Alkaline Phosphatase Troponin T C-Reactive Protein Total Protein Albumin LDL Cholesterol Direct HDL Cholesterol Hepatitis C Antibody Crossmatch 12/07/17 12/07/17 12/07/17 05:47 05:47 18:03 WBC RBC 2.79 L Hgb 7.3 L Hct 22.8 L MCV 82 L MCH 26 L MCHC RDW 19.1 H Plt Count 101 L Lymph % (Auto) Haines % (Auto) Eos % (Auto) Lymph # Haines # Eos # Seg Neutrophils % Seg Neuts % (Manual) 72.0 H Lymphocytes % (Manual) 13.0 L Monocytes % (Manual) Eosinophils % (Manual) 9.0 H Nucleated RBC % Seg Neutrophils # Seg Neutrophils # Man Lymphocytes # (Manual) 1.1 L Monocytes # (Manual) Eosinophils # (Manual) 0.8 H PT INR POC ABG pH POC ABG pCO2 POC ABG pO2 Sodium 146 H Potassium Chloride 109.8 H Carbon Dioxide BUN 36 H Creatinine 4.0 H Glucose POC Glucose 143 H Lactic Acid Calcium 8.0 L Magnesium AST ALT Alkaline Phosphatase Troponin T C-Reactive Protein Total Protein Albumin LDL Cholesterol Direct HDL Cholesterol Hepatitis C Antibody Crossmatch 12/07/17 12/08/17 12/08/17 23:33 05:10 05:10 WBC RBC 2.91 L Hgb 7.5 L Hct 24.4 L MCV MCH 26 L MCHC 31 L RDW 19.7 H Plt Count 109 L Lymph % (Auto) Haines % (Auto) Eos % (Auto) Lymph # Haines # Eos # Seg Neutrophils % Seg Neuts % (Manual) Lymphocytes % (Manual) 11.0 L Monocytes % (Manual) Eosinophils % (Manual) 12.0 H Nucleated RBC % Seg Neutrophils # Seg Neutrophils # Man Lymphocytes # (Manual) 0.7 L Monocytes # (Manual) Eosinophils # (Manual) 0.7 H PT INR POC ABG pH POC ABG pCO2 POC ABG pO2 Sodium 147 H Potassium Chloride 110.4 H Carbon Dioxide BUN Creatinine 2.8 H Glucose POC Glucose 107 H Lactic Acid Calcium 7.8 L Magnesium AST ALT Alkaline Phosphatase Troponin T C-Reactive Protein Total Protein Albumin LDL Cholesterol Direct HDL Cholesterol Hepatitis C Antibody Crossmatch 12/09/17 12/09/17 04:18 04:18 WBC RBC Hgb 7.2 L Hct 23.2 L MCV MCH MCHC RDW Plt Count Lymph % (Auto) Haines % (Auto) Eos % (Auto) Lymph # Haines # Eos # Seg Neutrophils % Seg Neuts % (Manual) Lymphocytes % (Manual) Monocytes % (Manual) Eosinophils % (Manual) Nucleated RBC % Seg Neutrophils # Seg Neutrophils # Man Lymphocytes # (Manual) Monocytes # (Manual) Eosinophils # (Manual) PT INR POC ABG pH POC ABG pCO2 POC ABG pO2 Sodium 150 H Potassium Chloride 114.5 H Carbon Dioxide BUN 25 H Creatinine 3.3 H Glucose POC Glucose Lactic Acid Calcium 7.7 L Magnesium AST ALT Alkaline Phosphatase Troponin T C-Reactive Protein Total Protein Albumin LDL Cholesterol Direct HDL Cholesterol Hepatitis C Antibody Crossmatch
--- NOTE | 2017-12-09 09:56 | Progress Note ---
Subjective Principal diagnosis: Acute hypoxic respiratory failure, s/p Trach Interval history: Patient was seen today for follow-up of multiple renal related issues remains encephalopathic Dialysis dependent No acute distress Events of 24 hours vitals labs intake output medications were reviewed Past medical history: Reviewed Family history: Reviewed Social history: Reviewed Allergies: Reviewed Physical examination: Vitals: Reviewed HEENT: No pallor or icterus oral mucosa moist Neck: Supple no JVD no thyromegaly Chest: Bilateral clear to auscultation anteriorly Heart: Regular rate and rhythm S1-S2 heard no S3-S4 Abdomen: Soft nontender no voluntary guarding rigidity rebound abdominal drain present Extremity: Dry skin less than 1+ peripheral edema Psychiatric: No evidence of agitation and aggression noted Dermatology: No petechial rashes Labs and x-rays: Reviewed from today AsAcute kidney injury: Patient is currently in maintenance hemodialysis Thursday and Thursday Anemia: Hemoglobin declining this is multifactorial we'll give erythropoietin 20 ,0001 subcutaneous which usually does have more predictable and stable response I still believe that patient may require packed red blood cell transfusion Continue with hemodialysis treatment as tolerated Hypernatremia will adjust the dialysate sodium bath Changing the dialysis prescription Hepatitis C positive, ultrasonogram October unremarkable Encephalopathy: Toxic metabolic vascular insult, CVA status post endarterectomy Overall prognosis very poor Noted to have Enterobacter in the peritoneal fluid Follow-up cultures have been drawn on We'll continue to follow and make recommendation for renal standpoint , Objective - Vital Signs Vital signs: Vital Signs - 12hr 12/08/17 12/08/17 12/08/17 22:00 23:00 23:54 Temperature Pulse Rate 92 H 94 H 106 H Respiratory 21 28 H 21 Rate Blood Pressure 115/67 114/67 119/68 O2 Sat by Pulse 100 100 100 Oximetry O2 Sat by Pulse Oximetry [ Assessment] 12/09/17 12/09/17 12/09/17 00:00 01:00 02:00 Temperature 99.7 F H Pulse Rate 106 H 106 H 111 H Respiratory 30 H 30 H 18 Rate Blood Pressure 138/76 135/74 140/77 O2 Sat by Pulse 100 100 100 Oximetry O2 Sat by Pulse Oximetry [ Assessment] 12/09/17 12/09/17 12/09/17 03:00 04:00 05:00 Temperature 98.8 F Pulse Rate 106 H 89 91 H Respiratory 33 H 30 H 28 H Rate Blood Pressure 156/88 140/77 131/82 O2 Sat by Pulse 100 100 98 Oximetry O2 Sat by Pulse Oximetry [ Assessment] 12/09/17 12/09/17 12/09/17 06:00 07:00 08:00 Temperature Pulse Rate 105 H 99 H Respiratory 33 H 20 Rate Blood Pressure 166/94 155/92 O2 Sat by Pulse 100 100 Oximetry O2 Sat by Pulse 100 Oximetry [ Assessment] 12/09/17 12/09/17 08:34 09:15 Temperature Pulse Rate 107 H Respiratory Rate Blood Pressure 156/93 O2 Sat by Pulse 100 Oximetry O2 Sat by Pulse Oximetry [ Assessment] - Lab 12/10/17 05:14 12/11/17 15:26 Most recent lab results Calcium 7.7 mg/dL (8.4-10.2) L 12/09/17 04:18 Magnesium 2.00 mg/dL (1.7-2.3) 11/24/17 21:53
[2017-12-09] MEDS ORDERED: PROCRIT SUB-Q NR (10:30)
[2017-12-09] MEDS ORDERED: NACL 0.9% 100 ML IV PRN (11:00)
[2017-12-09] MEDS: MERREM 1,000 MG in NACL 0.9% 100 ML IV SCH (14:13)
[2017-12-09] MEDS: PROTONIX (nf) FEEDTUBE SCH ×2 (14:14→22:23)
[2017-12-09] MEDS: DIFLUCAN 200 MG/100 ML BAG IV SCH (14:22)
[2017-12-09] MEDS: LOPRESSOR PO SCH ×2 (14:23→20:25)
[2017-12-09] MEDS: D5NS 1,000 ML IV SCH (14:23)
[2017-12-09] MEDS: SODIUM CHLORIDE FLUSH SYRINGE 10 ML IV SCH ×2 (14:24→22:24)
--- NOTE | 2017-12-09 15:41 | Progress Note ---
Assessment and Plan Assessment: 1) Sepsis with transient septic shock: new fever on 12/06-better and leukocytosis resolved. Etiology most likely PEG-associated intra-abdominal collection. CRP=25 2) VAP vs post-obstructive pneumonia (mucous mugging) -initial sputum 10/10 Klebsiella -sputum 11/12 usual respiratory estela -CXR showed increased perihilar alveolar density >RLL than LLL. -CTA showed complete atelectasis of the LLL with mediatinal shift to the left due to blockage of the left main bronchus by ETT. -repeat CT showed Loculated fluid collections noted along the bilateral paracolic gutters measuring approximately 4 x 8 cm in cross-sectional diameter and 13 cm in length on the right and 3.5 x 7 cm in cross-sectional diameter and 21 cm in length on the left, neither of which are in significant contiguity with catheters. Smaller, similar appearing fluid loculations in the mid and lower central mesentery both anterior and centrally, largest in the left paramedian supraumbilical region anteriorly measuring approximately 10 x 3 cm in cross-sectional diameter. Largest collection in the pelvis measures 11 x 13 cm in cross-sectional diameter and 2.5 cm in craniocaudal dimension. 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, placement of recent PEG tube with prolonged recent admission from 10/04-/11/10/17 4) Acute encephalopathy 5) Acute Respiratory failure 6) DARYA - on Intermittent HD started on 11/23/17 7) Hypernatremia 8) PEG-associated loculated intraabdominal collection s/p IR drainage 11/26 MDR Enterobacter and Heather non albicnas s/p OR lap partial wash out 12/03 +MDR Enterobacter resistant to cefepime s/p IR drains on 12/07 Plan: -continue fluconazole ok to change to PO -upon discharge will do meropenem 1 g IV q 24h and fluconazole 200 mg PO qday for 21 days until 12/23/17 -needs IV cath (PICC) for daily meropenem. Discussed with Dr Snyder -remove femoral vascath and place a neck/chest HD access. Discussed with Dr Snyder -avoid femoral central lines -contact isolation guarded prognosis I am signing off Discussed with Dr King Thank you for your consultation, will follow up with you. Olga Mercedes MD Infectious Diseases Specialist [facility] M [phone] O [phone] Subjective Date of service: 12/09/17 Principal diagnosis: Acute hypoxic respiratory failure, s/p Trach Interval history: On T piece. Tmax 100. Underwent more IR drainage yesterday. Microbiology: Blood cultures: 10/24 HAND BENDER 10/29 neg 11/10 neg 11/12 ngtd Urine cultures: Respiratory cultures: 10/10 Klebsiella 11/12 usual resp estela Peritonial cultures: 12/03 ngtd IR drainage 11/26 MDR Enterobacter and Heather not albicans OR drainage 12/03 MDR Enterobacter resistant to cefepime IR drainage 12/07 ngtd Current Antimicrobials: meropenem 12/06 fluconazole 11/29 Previous Antimicrobials: LevaquinZosyn 11/13 meropenem cefepime 12/02 Objective - Exam Narrative Exam: General appearance: alert on t-piece Eyes: anicteric sclerae, moist conjunctivae; no lid-lag; PERRLA HENT: Atraumatic; oropharynx+ETT +OGT Neck: Trachea midline; supple, no thyromegaly or lymphadenopathy Lungs: scattered rhonchi CV: rrr Abdomen: Soft, distended +PEG + drains with minimal purulence Extremities: winnie arms/legs edema Skin: Normal temperature, turgor and texture; no rash, ulcers or subcutaneous nodules Psych: more alert Neuro: more alert but somnolent Lines: condom cath, left fem line - Constitutional Vitals: Vital Signs Temp Pulse Resp BP Pulse Ox 99.0 F 94 H 23 131/80 100 12/09/17 13:14 12/09/17 14:23 12/09/17 14:00 12/09/17 14:23 12/09/17 14:00 Temperature -Last 24 Hours Temperature 99.0 F Temperature 99.0 F Temperature 99.9 F Temperature 99.9 F Temperature 98.8 F Temperature 99.7 F Temperature 99.5 F Temperature 100.0 F - Labs CBC & Chem 7: 12/09/17 04:18 12/09/17 04:18 Labs: Abnormal lab results 12/09/17 12/09/17 12/09/17 Range/Units 04:18 04:18 12:16 Hgb 7.2 L (11.8-15.2) gm/dl Hct 23.2 L (35.5-45.6) % Sodium 150 H (137-145) mmol/L Chloride 114.5 H (98-107) mmol/L BUN 25 H (9-20) mg/dL Creatinine 3.3 H (0.8-1.5) mg/dL POC Glucose 142 H (70-105) Calcium 7.7 L (8.4-10.2) mg/dL
--- NOTE | 2017-12-09 16:20 | Progress Note ---
Assessment and Plan Peritonitis from dislodged peg tube - removed PEG tube on 11/22 -peritoneal Fluid positive for Enterobacter, Heather (non albicans) -Antibiotic managed by ID -s/p multiple intraabdominal drainages placed by IR and GS. also had abdominal washout by GS -Repeat CT scan on 12/04 showed persistent abdominal collection of abscess/ fluid and plan for repeat drainage of upper abdominal midline fluid collection and a perisplenic fluid collection on 12/06 by IR Acute on chronic respiratory failure with hypoxia - likely due to aspiratin and PNA -Status post tracheostomy, currently on T-piece - Pulmonology following Severe sepsis with shock likely secondary to aspiration pneumonia -Off IV pressors -Blood and sputum cultures negative Aspiration pneumonia with mucus plugging -treated with zosyn Acute kidney injury secondary to ATN -on Intermittent HD started on 11/23/17 -Creatinine level improved -Nephrology following Anemia of acute loss secondary to gastric ulcer and gastritis -Status post EGD on 11/18/2017 -Status post blood transfusion -H/H stable, will monitor Acute encephalopathy, likely multifactorial -Will continue to monitor clinically -Prognosis is poor Hypernatremia -Resolved Hypokalemia -We cont to monitor level and replete as needed Hypomagnesemia -Resolved status post repletion Oropharyngeal dysphagia -Status post PEG tube placement on 11/06, now removed -On tube feeding with dobhoff History of recent CVA -Not on aspirin due to recent bleed RT ICA stenosis -s/p recent endarterectomy Disposition: Patient overall prognosis remains poor. Continue management Brief History 67yo M with history CVA, a PEG tube placed by GI on 11/06 presented (11/12) from rehab for respiratory failure, sepsis, hypotension and multilober PNA. Recent work-up for hypotension showed a dislodged PEG tube on CT scan with extraluminal PO contrast that was limited to the upper abdomen and left gutter. Pt had an EGD on 11/18 that did not show the PEG button or an obvious hole in the stomach. There was no free air noted on CXR's. Pt had IR guided drainage placed in the 3 different locations of abdomen. He is now s/p trach by ENT. Recent Ct abdoemn/pelvis on 12/04/17 showed persistent abdominal collection of abscess/fluid and s/p repeat drainage 12/06/17 Hospitalist Physical General appearance: Present: no acute distress - EENT Eyes: Present: PERRL ENT: clear oral mucosa - Neck Neck: Present: supple, other (status post tracheostomy on T-piece) - Respiratory Respiratory effort: normal Respiratory: bilateral: CTA - Cardiovascular Rhythm: other (tachycardia) Heart Sounds: Present: S1 & S2 - Extremities Extremity abnormal: edema (in BLE) - Abdominal General gastrointestinal: non-distended, distended, normal bowel sounds, other ( firm on palpation), total [address] - Neurologic Neurologic: other (patient is awake but unable to follow commands) Subjective Date of service: 12/09/17 Principal diagnosis: Acute hypoxic respiratory failure, s/p Trach Objective - Constitutional Vitals: Vital Signs - 12hr 12/09/17 12/09/17 12/09/17 05:00 06:00 07:00 Temperature Pulse Rate 91 H 105 H 99 H Respiratory 28 H 33 H 20 Rate Blood Pressure 131/82 166/94 155/92 O2 Sat by Pulse 98 100 100 Oximetry O2 Sat by Pulse Oximetry [ Assessment] O2 Sat by Pulse Oximetry [ Bilateral Throughout] 12/09/17 12/09/17 12/09/17 08:00 08:34 09:00 Temperature 99.9 F H 99.9 F H Pulse Rate 93 H 106 H Respiratory 34 H 29 H Rate Blood Pressure 164/93 156/94 O2 Sat by Pulse 100 100 100 Oximetry O2 Sat by Pulse 100 Oximetry [ Assessment] O2 Sat by Pulse 100 Oximetry [ Bilateral Throughout] 12/09/17 12/09/17 12/09/17 09:15 09:30 09:45 Temperature Pulse Rate 107 H 107 H 114 H Respiratory Rate Blood Pressure 156/93 168/83 168/69 O2 Sat by Pulse Oximetry O2 Sat by Pulse Oximetry [ Assessment] O2 Sat by Pulse Oximetry [ Bilateral Throughout] 12/09/17 12/09/17 12/09/17 10:00 10:01 10:15 Temperature Pulse Rate 115 H 117 H 105 H Respiratory 30 H Rate Blood Pressure 130/85 130/85 153/94 O2 Sat by Pulse 99 Oximetry O2 Sat by Pulse Oximetry [ Assessment] O2 Sat by Pulse Oximetry [ Bilateral Throughout] 12/09/17 12/09/17 12/09/17 10:30 10:45 11:00 Temperature Pulse Rate 96 H 109 H 90 Respiratory 29 H Rate Blood Pressure 150/92 132/89 135/80 O2 Sat by Pulse 100 Oximetry O2 Sat by Pulse Oximetry [ Assessment] O2 Sat by Pulse Oximetry [ Bilateral Throughout] 12/09/17 12/09/17 12/09/17 11:15 11:30 11:45 Temperature Pulse Rate 102 H 110 H 108 H Respiratory Rate Blood Pressure 142/80 140/91 148/93 O2 Sat by Pulse Oximetry O2 Sat by Pulse Oximetry [ Assessment] O2 Sat by Pulse Oximetry [ Bilateral Throughout] 12/09/17 12/09/17 12/09/17 12:00 12:01 12:15 Temperature 99.0 F Pulse Rate 107 H 100 H 100 H Respiratory 30 H Rate Blood Pressure 153/93 153/93 156/94 O2 Sat by Pulse 96 Oximetry O2 Sat by Pulse Oximetry [ Assessment] O2 Sat by Pulse Oximetry [ Bilateral Throughout] 12/09/17 12/09/17 12/09/17 12:30 12:45 13:00 Temperature Pulse Rate 97 H 108 H 100 H Respiratory 27 H Rate Blood Pressure 160/102 135/92 168/101 O2 Sat by Pulse 100 Oximetry O2 Sat by Pulse Oximetry [ Assessment] O2 Sat by Pulse Oximetry [ Bilateral Throughout] 12/09/17 12/09/17 12/09/17 13:14 14:00 14:23 Temperature 99.0 F Pulse Rate 99 H 90 94 H Respiratory 30 H 23 Rate Blood Pressure 130/80 149/87 131/80 O2 Sat by Pulse 100 Oximetry O2 Sat by Pulse Oximetry [ Assessment] O2 Sat by Pulse 100 Oximetry [ Bilateral Throughout] 12/09/17 12/09/17 15:00 16:00 Temperature Pulse Rate 101 H 79 Respiratory 29 H 25 H Rate Blood Pressure 131/80 130/82 O2 Sat by Pulse 100 93 Oximetry O2 Sat by Pulse Oximetry [ Assessment] O2 Sat by Pulse Oximetry [ Bilateral Throughout] - Labs CBC & Chem 7: 12/09/17 04:18 12/09/17 04:18 Labs: Abnormal lab results 12/09/17 12/09/17 12/09/17 Range/Units 04:18 04:18 12:16 Hgb 7.2 L (11.8-15.2) gm/dl Hct 23.2 L (35.5-45.6) % Sodium 150 H (137-145) mmol/L Chloride 114.5 H (98-107) mmol/L BUN 25 H (9-20) mg/dL Creatinine 3.3 H (0.8-1.5) mg/dL POC Glucose 142 H (70-105) Calcium 7.7 L (8.4-10.2) mg/dL
[2017-12-09] MEDS: D5NS 0.2% 1,000 ML IV SCH (22:23)
[2017-12-10 05:32] LABS: Hematocrit 23.9 % (35.5-45.6); Hemoglobin 7.4 gm/dl (11.8-15.2); Mean Corpuscular HGB Conc 31 % (32-34); Mean Corpuscular Hemoglobin 26 pg (28-32); Mean Corpuscular Volume 85 fl (84-94); Platelet Count 128 K/mm3 (140-440); Red Blood Count 2.81 M/mm3 (3.65-5.03); Red Cell Distribution Width 19.1 % (13.2-15.2)
[2017-12-10 05:52] LABS: Calcium 7.8 mg/dL (8.4-10.2)
[2017-12-10 08:01] LABS: Basophils % (Manual) 0 % (0.0-1.8); Myelocytes # (Manual) 0.2 K/mm3; Total Cells Counted 100
[2017-12-10 08:02] LABS: Platelet Estimate Consistent w Auto
[2017-12-10 08:03] LABS: Anisocytosis 1+; Hypochromasia Few
[2017-12-10 08:04] LABS: Ovalocytes Few; Target Cells Few; Tear Drop Cells Few
--- NOTE | 2017-12-10 08:52 | Progress Note ---
Subjective Principal diagnosis: Acute hypoxic respiratory failure, s/p Trach Interval history: Patient was seen today for follow-up on multiple renal related issues Doing about the same Electrolytes appear to be better, Remains dialysis dependent Vitals labs intake output medications were reviewed Social history: Reviewed Allergies: Reviewed Family history: Reviewed Physical examination HEENT: Oral mucosa moist no pallor or icterus Neck: Supple no JVD Chest: Clear to auscultation anteriorly CVS: Regular rate and rhythm S1 and S2 heard Abdomen: Soft nontender no suprapubic masses no organomegaly appreciable Extremity: Dry skin less than 1+ peripheral edema Musculoskeletal: No joint effusion noted in knees and ankle Neurological: Alert awake Dermatology: No petechial rashes Psychiatry: No evidence of any agitation and aggression noted Assessment and plan Acute kidney injury: Patient remains dialysis dependent Thursday vested Thursday to continue as tolerated ultrafiltration as tolerated Patient dialysis catheter needs to be moved to the IJ area possibly a permacath please consult vascular surgery Hypertension: To monitor and follow, consider initiation of Coreg if blood pressure consistently stays over 150 at low-dose 3.125 mg twice a day Anemia current hemoglobin is around 7.4 with platelet count of 128,000 to monitor and follow Erythropoietin will be given on a weekly basis for now As far as dialysis is concerned he has stable metabolic control potassium 4 bicarbonate 23 calcium 7.8 Encephalopathy: 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 Hypernatremia: Currently better follow Enterobacter and peritoneal fluid, discussed with infectious disease We'll continue to follow and make recommendation from renal standpoint We'll continue to follow and make recommendation from renal standpoint , Objective - Vital Signs Vital signs: Vital Signs - 12hr 12/09/17 12/09/17 12/09/17 21:00 21:17 22:00 Temperature Pulse Rate 89 77 91 H Pulse Rate [ Left Dorsalis Pedis] Respiratory 28 H 26 H 31 H Rate Blood Pressure 168/99 158/91 165/93 O2 Sat by Pulse 96 97 98 Oximetry O2 Sat by Pulse Oximetry [ Assessment] 12/09/17 12/10/17 12/10/17 23:00 00:00 01:00 Temperature 98.6 F Pulse Rate 94 H 92 H 98 H Pulse Rate [ 96 H Left Dorsalis Pedis] Respiratory 27 H 28 H 33 H Rate Blood Pressure 165/96 148/91 169/94 O2 Sat by Pulse 97 100 98 Oximetry O2 Sat by Pulse Oximetry [ Assessment] 12/10/17 12/10/17 12/10/17 02:00 02:25 03:00 Temperature Pulse Rate 82 93 H Pulse Rate [ Left Dorsalis Pedis] Respiratory 29 H 30 H Rate Blood Pressure 145/85 145/85 O2 Sat by Pulse 100 100 Oximetry O2 Sat by Pulse 100 Oximetry [ Assessment] 12/10/17 12/10/17 12/10/17 04:00 05:00 06:00 Temperature 98.7 F Pulse Rate 77 129 H 87 Pulse Rate [ 92 H Left Dorsalis Pedis] Respiratory 25 H Rate Blood Pressure 150/85 176/101 143/84 O2 Sat by Pulse 100 100 99 Oximetry O2 Sat by Pulse Oximetry [ Assessment] 12/10/17 12/10/17 07:00 08:00 Temperature 97.9 F Pulse Rate 79 89 Pulse Rate [ Left Dorsalis Pedis] Respiratory Rate Blood Pressure 139/83 160/89 O2 Sat by Pulse 100 100 Oximetry O2 Sat by Pulse Oximetry [ Assessment] - Lab 12/10/17 05:14 12/10/17 05:14 Most recent lab results Calcium 7.8 mg/dL (8.4-10.2) L 12/10/17 05:14 Magnesium 2.00 mg/dL (1.7-2.3) 11/24/17 21:53
--- NOTE | 2017-12-10 08:52 | Progress Note ---
Subjective Principal diagnosis: Acute hypoxic respiratory failure, s/p Trach Interval history: Patient was seen today for follow-up on multiple renal related issues Doing about the same Remains dialysis dependent Vitals labs intake output medications were reviewed Social history: Reviewed Allergies: Reviewed Family history: Reviewed Physical examination HEENT: Oral mucosa moist no pallor or icterus Neck: Supple no JVD Chest: Clear to auscultation anteriorly CVS: Regular rate and rhythm S1 and S2 heard Abdomen: Soft nontender no suprapubic masses no organomegaly appreciable Extremity: Dry skin less than 1+ peripheral edema Musculoskeletal: No joint effusion noted in knees and ankle Neurological: Alert awake Dermatology: No petechial rashes Psychiatry: No evidence of any agitation and aggression noted Assessment and plan Acute kidney injury: Patient is currently in maintenance hemodialysis Thursday and Thursday Anemia: Hemoglobin declining this is multifactorial we'll give erythropoietin 20 ,0001 subcutaneous which usually does have more predictable and stable response I still believe that patient may require packed red blood cell transfusion Continue with hemodialysis treatment as tolerated Hypernatremia will adjust the dialysate sodium bath Changing the dialysis prescription Hepatitis C positive, ultrasonogram October unremarkable Encephalopathy: Toxic metabolic vascular insult, CVA status post endarterectomy Overall prognosis very poor Noted to have Enterobacter in the peritoneal fluid Follow-up cultures have been drawn on We'll continue to follow and make recommendation from renal standpoint , Objective - Vital Signs Vital signs: Vital Signs - 12hr 12/09/17 12/09/17 12/09/17 21:00 21:17 22:00 Temperature Pulse Rate 89 77 91 H Pulse Rate [ Left Dorsalis Pedis] Respiratory 28 H 26 H 31 H Rate Blood Pressure 168/99 158/91 165/93 O2 Sat by Pulse 96 97 98 Oximetry O2 Sat by Pulse Oximetry [ Assessment] 12/09/17 12/10/17 12/10/17 23:00 00:00 01:00 Temperature 98.6 F Pulse Rate 94 H 92 H 98 H Pulse Rate [ 96 H Left Dorsalis Pedis] Respiratory 27 H 28 H 33 H Rate Blood Pressure 165/96 148/91 169/94 O2 Sat by Pulse 97 100 98 Oximetry O2 Sat by Pulse Oximetry [ Assessment] 12/10/17 12/10/17 12/10/17 02:00 02:25 03:00 Temperature Pulse Rate 82 93 H Pulse Rate [ Left Dorsalis Pedis] Respiratory 29 H 30 H Rate Blood Pressure 145/85 145/85 O2 Sat by Pulse 100 100 Oximetry O2 Sat by Pulse 100 Oximetry [ Assessment] 12/10/17 12/10/17 12/10/17 04:00 05:00 06:00 Temperature 98.7 F Pulse Rate 77 129 H 87 Pulse Rate [ 92 H Left Dorsalis Pedis] Respiratory 25 H Rate Blood Pressure 150/85 176/101 143/84 O2 Sat by Pulse 100 100 99 Oximetry O2 Sat by Pulse Oximetry [ Assessment] 12/10/17 12/10/17 07:00 08:00 Temperature 97.9 F Pulse Rate 79 89 Pulse Rate [ Left Dorsalis Pedis] Respiratory Rate Blood Pressure 139/83 160/89 O2 Sat by Pulse 100 100 Oximetry O2 Sat by Pulse Oximetry [ Assessment] - Lab 12/10/17 05:14 12/10/17 05:14 Most recent lab results Calcium 7.8 mg/dL (8.4-10.2) L 12/10/17 05:14 Magnesium 2.00 mg/dL (1.7-2.3) 11/24/17 21:53
[2017-12-10] MEDS: MERREM 1,000 MG in NACL 0.9% 100 ML IV SCH (09:43)
[2017-12-10] MEDS: DIFLUCAN 200 MG/100 ML BAG IV SCH (09:43)
[2017-12-10] MEDS: PROTONIX (nf) FEEDTUBE SCH (09:44)
[2017-12-10] MEDS: LOPRESSOR PO SCH ×2 (09:44→21:09)
--- NOTE | 2017-12-10 10:12 | Progress Note ---
Assessment and Plan Acute respiratory failure. Stable Trach. Needs aggressive suctioning care,toilette ESRD Sepsis,post PEG related spillage or peritonitis.Multiple drainages in plase. reviewed with at the bedside,improved drainage today Stroke Acute kidney injury. Worsening creatinine Recommendations Continue ABX Drainage,surgery care Nebs as needed for chest congestion,suction PO water sips, monitor hypernatremia HD per nephrology.Perm Cath and PICC planned Aspiration precautions DVT prophylaxis Discussed with staff. No family at the bedside Subjective Date of service: 12/10/17 Principal diagnosis: Acute hypoxic respiratory failure, s/p Trach Interval history: No events overnight Objective Vital Signs - 12hr 12/09/17 12/10/17 12/10/17 23:00 00:00 01:00 Temperature 98.6 F Pulse Rate 94 H 92 H 98 H Pulse Rate [ 96 H Left Dorsalis Pedis] Respiratory 27 H 28 H 33 H Rate Blood Pressure 165/96 148/91 169/94 O2 Sat by Pulse 97 100 98 Oximetry O2 Sat by Pulse Oximetry [ Assessment] 12/10/17 12/10/17 12/10/17 02:00 02:25 03:00 Temperature Pulse Rate 82 93 H Pulse Rate [ Left Dorsalis Pedis] Respiratory 29 H 30 H Rate Blood Pressure 145/85 145/85 O2 Sat by Pulse 100 100 Oximetry O2 Sat by Pulse 100 Oximetry [ Assessment] 12/10/17 12/10/17 12/10/17 04:00 05:00 06:00 Temperature 98.7 F Pulse Rate 77 129 H 87 Pulse Rate [ 92 H Left Dorsalis Pedis] Respiratory 25 H Rate Blood Pressure 150/85 176/101 143/84 O2 Sat by Pulse 100 100 99 Oximetry O2 Sat by Pulse Oximetry [ Assessment] 12/10/17 12/10/17 12/10/17 07:00 08:00 09:00 Temperature 97.9 F Pulse Rate 79 89 93 H Pulse Rate [ Left Dorsalis Pedis] Respiratory Rate Blood Pressure 139/83 160/89 160/101 O2 Sat by Pulse 100 100 100 Oximetry O2 Sat by Pulse Oximetry [ Assessment] 12/10/17 09:44 Temperature Pulse Rate 83 Pulse Rate [ Left Dorsalis Pedis] Respiratory Rate Blood Pressure 160/101 O2 Sat by Pulse Oximetry O2 Sat by Pulse Oximetry [ Assessment] Constitutional: no acute distress, alert Eyes: non-icteric ENT: oropharynx moist Neck: supple (trach in position), no JVD Effort: normal Ascultation: Bilateral: clear, rhonchi (bilateral,post tussive) Cardiovascular: regular rate and rhythm Gastrointestinal: normoactive bowel sounds, soft, non-tender, other (drainages in place) Integumentary: normal Extremities: no cyanosis, pink and warm, anasarca Neurologic: other (L hemiparesis,awake, response to my voice) Psychiatric: other (unable to assess) CBC and BMP: 12/10/17 05:14 12/10/17 05:14 ABG, PT/INR, D-dimer: ABG POC ABG pH 7.505 (7.35-7.45) H 11/23/17 04:56 POC ABG pCO2 26.3 (35-45) L 11/23/17 04:56 POC ABG pO2 100 (80-105) 11/23/17 04:56 POC ABG HCO3 20.8 11/23/17 04:56 POC ABG Total CO2 22 11/23/17 04:56 POC ABG O2 Sat 98 11/23/17 04:56 PT/INR, D-dimer PT 23.6 Sec. (12.2-14.9) H 11/26/17 06:29 INR 1.96 (0.87-1.13) H 11/26/17 06:29 Abnormal lab findings: Abnormal Labs 11/11/17 11/11/17 11/11/17 23:18 23:20 23:20 WBC RBC Hgb 10.4 L Hct 32.6 L D MCV MCH 27 L MCHC RDW 17.4 H Plt Count 105 L Lymph % (Auto) [place] % (Auto) Eos % (Auto) Lymph # [place] # Eos # Seg Neutrophils % Seg Neuts % (Manual) Lymphocytes % (Manual) 8.0 L Monocytes % (Manual) Eosinophils % (Manual) Nucleated RBC % 1.0 H Seg Neutrophils # Seg Neutrophils # Man Lymphocytes # (Manual) 0.7 L Monocytes # (Manual) Eosinophils # (Manual) PT INR POC ABG pH 7.550 H POC ABG pCO2 31.6 L POC ABG pO2 Sodium 146 H Potassium Chloride Carbon Dioxide BUN 26 H Creatinine 1.7 H D Glucose 133 H POC Glucose Lactic Acid Calcium Magnesium AST ALT Alkaline Phosphatase Troponin T 0.117 H* C-Reactive Protein Total Protein Albumin 2.5 L LDL Cholesterol Direct 42 L HDL Cholesterol 24 L Hepatitis C Antibody Crossmatch 11/11/17 11/12/17 11/12/17 23:20 00:23 00:23 WBC RBC Hgb Hct MCV MCH MCHC RDW Plt Count Lymph % (Auto) [place] % (Auto) Eos % (Auto) Lymph # [place] # Eos # Seg Neutrophils % Seg Neuts % (Manual) Lymphocytes % (Manual) Monocytes % (Manual) Eosinophils % (Manual) Nucleated RBC % Seg Neutrophils # Seg Neutrophils # Man Lymphocytes # (Manual) Monocytes # (Manual) Eosinophils # (Manual) PT 16.7 H INR 1.28 H POC ABG pH POC ABG pCO2 POC ABG pO2 Sodium Potassium Chloride Carbon Dioxide BUN Creatinine Glucose POC Glucose Lactic Acid 3.20 H* Calcium Magnesium AST ALT Alkaline Phosphatase Troponin T C-Reactive Protein 25.70 H Total Protein Albumin LDL Cholesterol Direct HDL Cholesterol Hepatitis C Antibody Crossmatch 11/12/17 11/12/17 11/12/17 00:46 01:27 01:27 WBC RBC Hgb Hct MCV MCH MCHC RDW Plt Count Lymph % (Auto) [place] % (Auto) Eos % (Auto) Lymph # [place] # Eos # Seg Neutrophils % Seg Neuts % (Manual) Lymphocytes % (Manual) Monocytes % (Manual) Eosinophils % (Manual) Nucleated RBC % Seg Neutrophils # Seg Neutrophils # Man Lymphocytes # (Manual) Monocytes # (Manual) Eosinophils # (Manual) PT INR POC ABG pH 7.495 H POC ABG pCO2 32.0 L POC ABG pO2 64 L Sodium Potassium Chloride Carbon Dioxide BUN Creatinine Glucose POC Glucose Lactic Acid 3.70 H* Calcium Magnesium AST ALT Alkaline Phosphatase Troponin T 0.096 H C-Reactive Protein Total Protein Albumin LDL Cholesterol Direct HDL Cholesterol Hepatitis C Antibody Crossmatch 11/12/17 11/12/17 11/12/17 03:21 04:50 06:27 WBC RBC Hgb Hct MCV MCH MCHC RDW Plt Count Lymph % (Auto) [place] % (Auto) Eos % (Auto) Lymph # [place] # Eos # Seg Neutrophils % Seg Neuts % (Manual) Lymphocytes % (Manual) Monocytes % (Manual) Eosinophils % (Manual) Nucleated RBC % Seg Neutrophils # Seg Neutrophils # Man Lymphocytes # (Manual) Monocytes # (Manual) Eosinophils # (Manual) PT INR POC ABG pH POC ABG pCO2 POC ABG pO2 109 H Sodium Potassium Chloride Carbon Dioxide BUN Creatinine Glucose POC Glucose Lactic Acid 3.80 H* 2.20 H* Calcium Magnesium AST ALT Alkaline Phosphatase Troponin T C-Reactive Protein Total Protein Albumin LDL Cholesterol Direct HDL Cholesterol Hepatitis C Antibody Crossmatch 11/12/17 11/12/17 11/12/17 09:24 09:24 09:24 WBC RBC Hgb 10.4 L Hct 33.4 L MCV MCH MCHC RDW Plt Count Lymph % (Auto) [place] % (Auto) Eos % (Auto) Lymph # [place] # Eos # Seg Neutrophils % Seg Neuts % (Manual) Lymphocytes % (Manual) Monocytes % (Manual) Eosinophils % (Manual) Nucleated RBC % Seg Neutrophils # Seg Neutrophils # Man Lymphocytes # (Manual) Monocytes # (Manual) Eosinophils # (Manual) PT INR POC ABG pH POC ABG pCO2 POC ABG pO2 Sodium Potassium Chloride Carbon Dioxide BUN Creatinine Glucose POC Glucose Lactic Acid 2.90 H* Calcium Magnesium AST ALT Alkaline Phosphatase Troponin T 0.091 H C-Reactive Protein Total Protein Albumin LDL Cholesterol Direct HDL Cholesterol Hepatitis C Antibody Crossmatch 11/12/17 11/12/17 11/12/17 12:56 20:03 Unknown WBC RBC Hgb Hct MCV MCH MCHC RDW Plt Count Lymph % (Auto) [place] % (Auto) Eos % (Auto) Lymph # [place] # Eos # Seg Neutrophils % Seg Neuts % (Manual) Lymphocytes % (Manual) Monocytes % (Manual) Eosinophils % (Manual) Nucleated RBC % Seg Neutrophils # Seg Neutrophils # Man Lymphocytes # (Manual) Monocytes # (Manual) Eosinophils # (Manual) PT INR POC ABG pH POC ABG pCO2 POC ABG pO2 Sodium Potassium Chloride Carbon Dioxide BUN Creatinine Glucose POC Glucose Lactic Acid 3.60 H* Calcium Magnesium AST ALT Alkaline Phosphatase Troponin T 0.102 H* 0.156 H* D C-Reactive Protein Total Protein Albumin LDL Cholesterol Direct HDL Cholesterol Hepatitis C Antibody Crossmatch 11/12/17 11/13/17 11/13/17 Unknown 04:50 04:50 WBC 12.2 H RBC 3.51 L Hgb 9.3 L Hct 30.1 L MCV MCH 26 L MCHC 31 L RDW 18.0 H Plt Count 128 L Lymph % (Auto) 8.6 L [place] % (Auto) 11.1 H Eos % (Auto) Lymph # 1.1 L [place] # 1.4 H Eos # Seg Neutrophils % 80.1 H Seg Neuts % (Manual) Lymphocytes % (Manual) Monocytes % (Manual) Eosinophils % (Manual) Nucleated RBC % Seg Neutrophils # 9.8 H Seg Neutrophils # Man Lymphocytes # (Manual) Monocytes # (Manual) Eosinophils # (Manual) PT INR POC ABG pH POC ABG pCO2 POC ABG pO2 Sodium 149 H Potassium 5.1 H Chloride 114.4 H Carbon Dioxide 18 L BUN 52 H Creatinine 3.3 H D Glucose 129 H POC Glucose Lactic Acid Calcium 7.9 L Magnesium AST ALT Alkaline Phosphatase Troponin T 0.098 H C-Reactive Protein Total Protein Albumin LDL Cholesterol Direct HDL Cholesterol Hepatitis C Antibody Crossmatch 11/13/17 11/13/17 11/14/17 04:51 09:34 04:21 WBC RBC Hgb Hct MCV MCH MCHC RDW Plt Count Lymph % (Auto) [place] % (Auto) Eos % (Auto) Lymph # [place] # Eos # Seg Neutrophils % Seg Neuts % (Manual) Lymphocytes % (Manual) Monocytes % (Manual) Eosinophils % (Manual) Nucleated RBC % Seg Neutrophils # Seg Neutrophils # Man Lymphocytes # (Manual) Monocytes # (Manual) Eosinophils # (Manual) PT INR POC ABG pH POC ABG pCO2 30.1 L 29.8 L POC ABG pO2 135 H Sodium Potassium Chloride Carbon Dioxide BUN Creatinine Glucose POC Glucose Lactic Acid 2.10 H* Calcium Magnesium AST ALT Alkaline Phosphatase Troponin T C-Reactive Protein Total Protein Albumin LDL Cholesterol Direct HDL Cholesterol Hepatitis C Antibody Crossmatch 11/15/17 11/15/17 11/16/17 04:52 15:50 05:17 WBC RBC Hgb Hct MCV MCH MCHC RDW Plt Count Lymph % (Auto) [place] % (Auto) Eos % (Auto) Lymph # [place] # Eos # Seg Neutrophils % Seg Neuts % (Manual) Lymphocytes % (Manual) Monocytes % (Manual) Eosinophils % (Manual) Nucleated RBC % Seg Neutrophils # Seg Neutrophils # Man Lymphocytes # (Manual) Monocytes # (Manual) Eosinophils # (Manual) PT INR POC ABG pH POC ABG pCO2 29.5 L 31.5 L POC ABG pO2 115 H 122 H Sodium 154 H Potassium Chloride 117.9 H Carbon Dioxide 19 L BUN 87 H Creatinine 4.1 H Glucose POC Glucose Lactic Acid Calcium 8.1 L Magnesium AST ALT Alkaline Phosphatase Troponin T C-Reactive Protein Total Protein Albumin LDL Cholesterol Direct HDL Cholesterol Hepatitis C Antibody Crossmatch 11/16/17 11/17/17 11/17/17 16:37 04:07 10:00 WBC 14.7 H RBC 3.23 L Hgb 8.3 L Hct 28.1 L MCV MCH 26 L MCHC 30 L RDW 18.8 H Plt Count Lymph % (Auto) [place] % (Auto) Eos % (Auto) Lymph # [place] # Eos # Seg Neutrophils % Seg Neuts % (Manual) 75 H Lymphocytes % (Manual) 8.0 L Monocytes % (Manual) Eosinophils % (Manual) Nucleated RBC % 1.0 H Seg Neutrophils # Seg Neutrophils # Man 11.0 H Lymphocytes # (Manual) Monocytes # (Manual) 0.9 H Eosinophils # (Manual) PT INR POC ABG pH POC ABG pCO2 POC ABG pO2 Sodium 153 H 155 H Potassium Chloride 117.3 H 119.4 H Carbon Dioxide 19 L 20 L BUN 90 H 89 H Creatinine 3.9 H 3.6 H Glucose 111 H 115 H POC Glucose Lactic Acid Calcium 8.1 L 8.0 L Magnesium AST ALT Alkaline Phosphatase Troponin T C-Reactive Protein Total Protein Albumin LDL Cholesterol Direct HDL Cholesterol Hepatitis C Antibody Crossmatch 11/18/17 11/18/17 11/18/17 04:34 04:34 04:34 WBC 15.5 H RBC 3.13 L Hgb 8.1 L Hct 26.3 L MCV MCH 26 L MCHC 31 L RDW 18.6 H Plt Count Lymph % (Auto) [place] % (Auto) Eos % (Auto) Lymph # [place] # Eos # Seg Neutrophils % Seg Neuts % (Manual) 81.0 H Lymphocytes % (Manual) 7.0 L Monocytes % (Manual) Eosinophils % (Manual) Nucleated RBC % 1.0 H Seg Neutrophils # Seg Neutrophils # Man 12.6 H Lymphocytes # (Manual) 1.1 L Monocytes # (Manual) Eosinophils # (Manual) PT 16.7 H INR 1.30 H POC ABG pH POC ABG pCO2 POC ABG pO2 Sodium 155 H Potassium 3.2 L Chloride 121.0 H Carbon Dioxide 20 L BUN 74 H Creatinine 2.9 H Glucose 126 H POC Glucose Lactic Acid Calcium 7.9 L Magnesium AST ALT Alkaline Phosphatase Troponin T C-Reactive Protein Total Protein Albumin LDL Cholesterol Direct HDL Cholesterol Hepatitis C Antibody Crossmatch 11/19/17 11/19/17 11/20/17 04:44 04:44 00:38 WBC 19.0 H 22.2 H RBC 3.20 L 3.17 L Hgb 8.4 L 7.9 L Hct 27.9 L 26.4 L MCV 83 L MCH 26 L 25 L MCHC 30 L 30 L RDW 19.1 H 18.9 H Plt Count Lymph % (Auto) [place] % (Auto) Eos % (Auto) Lymph # [place] # Eos # Seg Neutrophils % Seg Neuts % (Manual) 83.0 H Lymphocytes % (Manual) 3.0 L Monocytes % (Manual) 9.0 H Eosinophils % (Manual) Nucleated RBC % Seg Neutrophils # Seg Neutrophils # Man 18.4 H Lymphocytes # (Manual) 0.7 L Monocytes # (Manual) 2.0 H Eosinophils # (Manual) PT INR POC ABG pH POC ABG pCO2 POC ABG pO2 Sodium 152 H Potassium Chloride 117.1 H Carbon Dioxide 17 L BUN 66 H Creatinine 2.8 H Glucose 119 H POC Glucose Lactic Acid Calcium 7.8 L Magnesium 2.70 H AST ALT Alkaline Phosphatase Troponin T C-Reactive Protein Total Protein Albumin LDL Cholesterol Direct HDL Cholesterol Hepatitis C Antibody Crossmatch 11/20/17 11/20/17 11/20/17 03:29 04:48 13:38 WBC RBC Hgb Hct MCV MCH MCHC RDW Plt Count Lymph % (Auto) [place] % (Auto) Eos % (Auto) Lymph # [place] # Eos # Seg Neutrophils % Seg Neuts % (Manual) Lymphocytes % (Manual) Monocytes % (Manual) Eosinophils % (Manual) Nucleated RBC % Seg Neutrophils # Seg Neutrophils # Man Lymphocytes # (Manual) Monocytes # (Manual) Eosinophils # (Manual) PT INR POC ABG pH POC ABG pCO2 29.4 L POC ABG pO2 Sodium 148 H Potassium 3.4 L Chloride 113.7 H Carbon Dioxide 18 L BUN 59 H Creatinine 2.7 H Glucose 113 H POC Glucose 128 H Lactic Acid Calcium 7.8 L Magnesium AST ALT Alkaline Phosphatase Troponin T C-Reactive Protein Total Protein Albumin LDL Cholesterol Direct HDL Cholesterol Hepatitis C Antibody Crossmatch 11/20/17 11/20/17 11/21/17 17:38 23:40 00:13 WBC RBC Hgb 8.4 L Hct 28.0 L MCV MCH MCHC RDW Plt Count Lymph % (Auto) [place] % (Auto) Eos % (Auto) Lymph # [place] # Eos # Seg Neutrophils % Seg Neuts % (Manual) Lymphocytes % (Manual) Monocytes % (Manual) Eosinophils % (Manual) Nucleated RBC % Seg Neutrophils # Seg Neutrophils # Man Lymphocytes # (Manual) Monocytes # (Manual) Eosinophils # (Manual) PT INR POC ABG pH POC ABG pCO2 POC ABG pO2 Sodium Potassium Chloride Carbon Dioxide BUN Creatinine Glucose POC Glucose 115 H 145 H Lactic Acid Calcium Magnesium AST ALT Alkaline Phosphatase Troponin T C-Reactive Protein Total Protein Albumin LDL Cholesterol Direct HDL Cholesterol Hepatitis C Antibody Crossmatch 11/21/17 11/21/17 11/21/17 04:30 04:30 04:58 WBC 21.0 H RBC Hgb 9.6 L Hct 32.7 L MCV MCH 25 L MCHC 29 L RDW 19.7 H Plt Count 746 H Lymph % (Auto) [place] % (Auto) Eos % (Auto) Lymph # [place] # Eos # Seg Neutrophils % Seg Neuts % (Manual) Lymphocytes % (Manual) Monocytes % (Manual) Eosinophils % (Manual) Nucleated RBC % Seg Neutrophils # Seg Neutrophils # Man Lymphocytes # (Manual) Monocytes # (Manual) Eosinophils # (Manual) PT INR POC ABG pH POC ABG pCO2 POC ABG pO2 Sodium Potassium Chloride 109.4 H Carbon Dioxide 14 L BUN 59 H Creatinine 3.0 H Glucose 137 H POC Glucose 132 H Lactic Acid Calcium 7.6 L Magnesium AST ALT Alkaline Phosphatase Troponin T C-Reactive Protein Total Protein Albumin LDL Cholesterol Direct HDL Cholesterol Hepatitis C Antibody Crossmatch 11/21/17 11/21/17 11/21/17 06:30 13:43 14:17 WBC 38.2 H RBC Hgb 9.0 L Hct 32.3 L MCV MCH 25 L MCHC 28 L RDW 20.0 H Plt Count 766 H Lymph % (Auto) [place] % (Auto) Eos % (Auto) Lymph # [place] # Eos # Seg Neutrophils % Seg Neuts % (Manual) 85.0 H Lymphocytes % (Manual) 1.0 L Monocytes % (Manual) Eosinophils % (Manual) Nucleated RBC % 2.0 H Seg Neutrophils # Seg Neutrophils # Man 32.5 H Lymphocytes # (Manual) 0.4 L Monocytes # (Manual) 2.3 H Eosinophils # (Manual) PT INR POC ABG pH POC ABG pCO2 18.6 L POC ABG pO2 121 H Sodium 146 H Potassium Chloride 110.9 H Carbon Dioxide 11 L BUN 62 H Creatinine 4.0 H Glucose 64 L POC Glucose Lactic Acid Calcium 7.6 L Magnesium AST ALT Alkaline Phosphatase Troponin T C-Reactive Protein Total Protein Albumin LDL Cholesterol Direct HDL Cholesterol Hepatitis C Antibody Crossmatch 11/21/17 11/21/17 11/22/17 14:17 19:09 00:05 WBC RBC Hgb Hct MCV MCH MCHC RDW Plt Count Lymph % (Auto) [place] % (Auto) Eos % (Auto) Lymph # [place] # Eos # Seg Neutrophils % Seg Neuts % (Manual) Lymphocytes % (Manual) Monocytes % (Manual) Eosinophils % (Manual) Nucleated RBC % Seg Neutrophils # Seg Neutrophils # Man Lymphocytes # (Manual) Monocytes # (Manual) Eosinophils # (Manual) PT INR POC ABG pH POC ABG pCO2 20.0 L POC ABG pO2 Sodium Potassium Chloride Carbon Dioxide BUN Creatinine Glucose POC Glucose 127 H Lactic Acid 7.70 H* Calcium Magnesium AST ALT Alkaline Phosphatase Troponin T C-Reactive Protein Total Protein Albumin LDL Cholesterol Direct HDL Cholesterol Hepatitis C Antibody Crossmatch 11/22/17 11/22/17 11/22/17 03:53 06:00 07:25 WBC RBC Hgb Hct MCV MCH MCHC RDW Plt Count Lymph % (Auto) [place] % (Auto) Eos % (Auto) Lymph # [place] # Eos # Seg Neutrophils % Seg Neuts % (Manual) Lymphocytes % (Manual) Monocytes % (Manual) Eosinophils % (Manual) Nucleated RBC % Seg Neutrophils # Seg Neutrophils # Man Lymphocytes # (Manual) Monocytes # (Manual) Eosinophils # (Manual) PT INR POC ABG pH POC ABG pCO2 22.2 L POC ABG pO2 Sodium 147 H Potassium Chloride 111.9 H Carbon Dioxide 16 L BUN 72 H Creatinine 5.1 H Glucose 181 H POC Glucose 180 H Lactic Acid Calcium 7.1 L Magnesium AST ALT Alkaline Phosphatase Troponin T C-Reactive Protein Total Protein Albumin LDL Cholesterol Direct HDL Cholesterol Hepatitis C Antibody Crossmatch 11/22/17 11/22/17 11/22/17 07:25 07:25 12:05 WBC 31.4 H RBC 3.22 L Hgb 8.0 L Hct 26.7 L MCV 83 L MCH 25 L MCHC 30 L RDW 19.4 H Plt Count 602 H Lymph % (Auto) [place] % (Auto) Eos % (Auto) Lymph # [place] # Eos # Seg Neutrophils % Seg Neuts % (Manual) Lymphocytes % (Manual) Monocytes % (Manual) Eosinophils % (Manual) Nucleated RBC % Seg Neutrophils # Seg Neutrophils # Man Lymphocytes # (Manual) Monocytes # (Manual) Eosinophils # (Manual) PT INR POC ABG pH POC ABG pCO2 POC ABG pO2 Sodium Potassium Chloride Carbon Dioxide BUN Creatinine Glucose POC Glucose 182 H Lactic Acid 5.00 H* Calcium Magnesium AST ALT Alkaline Phosphatase Troponin T C-Reactive Protein Total Protein Albumin LDL Cholesterol Direct HDL Cholesterol Hepatitis C Antibody Crossmatch 11/22/17 11/23/17 11/23/17 19:45 01:28 04:56 WBC RBC Hgb Hct MCV MCH MCHC RDW Plt Count Lymph % (Auto) [place] % (Auto) Eos % (Auto) Lymph # [place] # Eos # Seg Neutrophils % Seg Neuts % (Manual) Lymphocytes % (Manual) Monocytes % (Manual) Eosinophils % (Manual) Nucleated RBC % Seg Neutrophils # Seg Neutrophils # Man Lymphocytes # (Manual) Monocytes # (Manual) Eosinophils # (Manual) PT INR POC ABG pH 7.505 H POC ABG pCO2 26.3 L POC ABG pO2 Sodium Potassium Chloride Carbon Dioxide BUN Creatinine Glucose POC Glucose 165 H Lactic Acid Calcium Magnesium AST ALT Alkaline Phosphatase Troponin T C-Reactive Protein Total Protein Albumin LDL Cholesterol Direct HDL Cholesterol Hepatitis C Antibody Reactive A Crossmatch 11/23/17 11/23/17 11/23/17 07:05 12:32 17:53 WBC RBC Hgb Hct MCV MCH MCHC RDW Plt Count Lymph % (Auto) [place] % (Auto) Eos % (Auto) Lymph # [place] # Eos # Seg Neutrophils % Seg Neuts % (Manual) Lymphocytes % (Manual) Monocytes % (Manual) Eosinophils % (Manual) Nucleated RBC % Seg Neutrophils # Seg Neutrophils # Man Lymphocytes # (Manual) Monocytes # (Manual) Eosinophils # (Manual) PT INR POC ABG pH POC ABG pCO2 POC ABG pO2 Sodium Potassium Chloride Carbon Dioxide 18 L BUN 61 H Creatinine 4.2 H Glucose 153 H POC Glucose 138 H 173 H Lactic Acid Calcium 7.5 L Magnesium AST ALT Alkaline Phosphatase Troponin T C-Reactive Protein Total Protein Albumin LDL Cholesterol Direct HDL Cholesterol Hepatitis C Antibody Crossmatch 11/23/17 11/24/17 11/24/17 23:41 05:42 05:42 WBC 21.5 H RBC 2.48 L Hgb 6.2 L Hct 20.3 L D MCV 82 L MCH 25 L MCHC 31 L RDW 18.9 H Plt Count Lymph % (Auto) [place] % (Auto) Eos % (Auto) Lymph # [place] # Eos # Seg Neutrophils % Seg Neuts % (Manual) 94.0 H Lymphocytes % (Manual) 3.0 L Monocytes % (Manual) Eosinophils % (Manual) Nucleated RBC % Seg Neutrophils # Seg Neutrophils # Man 20.2 H Lymphocytes # (Manual) 0.6 L Monocytes # (Manual) Eosinophils # (Manual) PT INR POC ABG pH POC ABG pCO2 POC ABG pO2 Sodium 149 H Potassium 2.8 L* D Chloride 113.9 H Carbon Dioxide 19 L BUN 31 H Creatinine 2.3 H Glucose 103 H POC Glucose 133 H Lactic Acid Calcium 5.3 L* D Magnesium 1.30 L AST ALT Alkaline Phosphatase Troponin T C-Reactive Protein Total Protein Albumin LDL Cholesterol Direct HDL Cholesterol Hepatitis C Antibody Crossmatch 11/24/17 11/24/17 11/24/17 05:42 08:27 08:27 WBC RBC Hgb Hct MCV MCH MCHC RDW Plt Count Lymph % (Auto) [place] % (Auto) Eos % (Auto) Lymph # [place] # Eos # Seg Neutrophils % Seg Neuts % (Manual) Lymphocytes % (Manual) Monocytes % (Manual) Eosinophils % (Manual) Nucleated RBC % Seg Neutrophils # Seg Neutrophils # Man Lymphocytes # (Manual) Monocytes # (Manual) Eosinophils # (Manual) PT INR POC ABG pH POC ABG pCO2 POC ABG pO2 Sodium Potassium Chloride Carbon Dioxide BUN Creatinine Glucose POC Glucose Lactic Acid 5.40 H* 5.20 H* Calcium Magnesium AST ALT Alkaline Phosphatase Troponin T C-Reactive Protein Total Protein Albumin LDL Cholesterol Direct HDL Cholesterol Hepatitis C Antibody Crossmatch See Detail 11/24/17 11/24/17 11/24/17 12:13 17:22 21:53 WBC 23.0 H RBC 3.32 L Hgb 8.8 L Hct 27.1 L D MCV 82 L MCH 26 L MCHC RDW 17.3 H Plt Count Lymph % (Auto) [place] % (Auto) Eos % (Auto) Lymph # [place] # Eos # Seg Neutrophils % Seg Neuts % (Manual) Lymphocytes % (Manual) Monocytes % (Manual) Eosinophils % (Manual) Nucleated RBC % Seg Neutrophils # Seg Neutrophils # Man Lymphocytes # (Manual) Monocytes # (Manual) Eosinophils # (Manual) PT INR POC ABG pH POC ABG pCO2 POC ABG pO2 Sodium Potassium Chloride Carbon Dioxide BUN Creatinine Glucose POC Glucose 138 H 180 H Lactic Acid Calcium Magnesium AST ALT Alkaline Phosphatase Troponin T C-Reactive Protein Total Protein Albumin LDL Cholesterol Direct HDL Cholesterol Hepatitis C Antibody Crossmatch 11/24/17 11/24/17 11/25/17 21:53 23:28 04:19 WBC RBC Hgb Hct MCV MCH MCHC RDW Plt Count Lymph % (Auto) [place] % (Auto) Eos % (Auto) Lymph # [place] # Eos # Seg Neutrophils % Seg Neuts % (Manual) Lymphocytes % (Manual) Monocytes % (Manual) Eosinophils % (Manual) Nucleated RBC % Seg Neutrophils # Seg Neutrophils # Man Lymphocytes # (Manual) Monocytes # (Manual) Eosinophils # (Manual) PT INR POC ABG pH POC ABG pCO2 POC ABG pO2 Sodium Potassium Chloride 96.3 L Carbon Dioxide BUN 28 H 31 H Creatinine 2.3 H 2.6 H Glucose 125 H 101 H POC Glucose 111 H Lactic Acid Calcium 7.5 L D 7.4 L Magnesium AST 170 H ALT 179 H Alkaline Phosphatase 175 H Troponin T C-Reactive Protein Total Protein 5.5 L Albumin 1.8 L LDL Cholesterol Direct HDL Cholesterol Hepatitis C Antibody Crossmatch 11/25/17 11/25/17 11/26/17 04:19 04:19 06:29 WBC 22.5 H RBC 3.48 L Hgb 9.1 L Hct 28.3 L MCV 81 L MCH 26 L MCHC RDW 17.4 H Plt Count Lymph % (Auto) [place] % (Auto) Eos % (Auto) Lymph # [place] # Eos # Seg Neutrophils % Seg Neuts % (Manual) Lymphocytes % (Manual) Monocytes % (Manual) Eosinophils % (Manual) Nucleated RBC % Seg Neutrophils # Seg Neutrophils # Man Lymphocytes # (Manual) Monocytes # (Manual) Eosinophils # (Manual) PT 23.6 H INR 1.96 H POC ABG pH POC ABG pCO2 POC ABG pO2 Sodium Potassium Chloride Carbon Dioxide BUN 31 H Creatinine 2.6 H Glucose 101 H POC Glucose Lactic Acid Calcium 7.5 L Magnesium AST ALT Alkaline Phosphatase Troponin T C-Reactive Protein Total Protein Albumin LDL Cholesterol Direct HDL Cholesterol Hepatitis C Antibody Crossmatch 11/26/17 11/27/17 11/27/17 06:34 04:06 04:06 WBC 11.3 H RBC 3.13 L Hgb 8.4 L Hct 25.8 L MCV 82 L MCH 27 L MCHC RDW 17.7 H Plt Count Lymph % (Auto) 7.4 L [place] % (Auto) Eos % (Auto) Lymph # 0.8 L [place] # Eos # Seg Neutrophils % 83.7 H Seg Neuts % (Manual) Lymphocytes % (Manual) Monocytes % (Manual) Eosinophils % (Manual) Nucleated RBC % Seg Neutrophils # 9.5 H Seg Neutrophils # Man Lymphocytes # (Manual) Monocytes # (Manual) Eosinophils # (Manual) PT INR POC ABG pH POC ABG pCO2 POC ABG pO2 Sodium Potassium Chloride 97.9 L Carbon Dioxide BUN 43 H 29 H Creatinine 3.5 H 2.9 H Glucose POC Glucose Lactic Acid Calcium 7.5 L 8.1 L Magnesium AST ALT Alkaline Phosphatase Troponin T C-Reactive Protein Total Protein Albumin LDL Cholesterol Direct HDL Cholesterol Hepatitis C Antibody Crossmatch 11/27/17 11/28/17 11/28/17 18:11 00:16 03:50 WBC RBC Hgb Hct MCV MCH MCHC RDW Plt Count Lymph % (Auto) [place] % (Auto) Eos % (Auto) Lymph # [place] # Eos # Seg Neutrophils % Seg Neuts % (Manual) Lymphocytes % (Manual) Monocytes % (Manual) Eosinophils % (Manual) Nucleated RBC % Seg Neutrophils # Seg Neutrophils # Man Lymphocytes # (Manual) Monocytes # (Manual) Eosinophils # (Manual) PT INR POC ABG pH POC ABG pCO2 POC ABG pO2 Sodium Potassium Chloride Carbon Dioxide BUN 39 H Creatinine 4.1 H Glucose 108 H POC Glucose 110 H 124 H Lactic Acid Calcium 7.9 L Magnesium AST ALT Alkaline Phosphatase Troponin T C-Reactive Protein Total Protein Albumin LDL Cholesterol Direct HDL Cholesterol Hepatitis C Antibody Crossmatch 11/28/17 11/28/17 11/28/17 05:03 11:36 17:42 WBC RBC Hgb Hct MCV MCH MCHC RDW Plt Count Lymph % (Auto) [place] % (Auto) Eos % (Auto) Lymph # [place] # Eos # Seg Neutrophils % Seg Neuts % (Manual) Lymphocytes % (Manual) Monocytes % (Manual) Eosinophils % (Manual) Nucleated RBC % Seg Neutrophils # Seg Neutrophils # Man Lymphocytes # (Manual) Monocytes # (Manual) Eosinophils # (Manual) PT INR POC ABG pH POC ABG pCO2 POC ABG pO2 Sodium Potassium Chloride Carbon Dioxide BUN Creatinine Glucose POC Glucose 134 H 114 H 119 H Lactic Acid Calcium Magnesium AST ALT Alkaline Phosphatase Troponin T C-Reactive Protein Total Protein Albumin LDL Cholesterol Direct HDL Cholesterol Hepatitis C Antibody Crossmatch 11/29/17 11/29/17 11/29/17 00:22 05:25 05:25 WBC 12.3 H RBC 3.34 L Hgb 8.6 L Hct 27.3 L MCV 82 L MCH 26 L MCHC RDW 18.5 H Plt Count Lymph % (Auto) 3.7 L [place] % (Auto) 7.7 H Eos % (Auto) Lymph # 0.5 L [place] # 1.0 H Eos # Seg Neutrophils % 86.5 H Seg Neuts % (Manual) Lymphocytes % (Manual) Monocytes % (Manual) Eosinophils % (Manual) Nucleated RBC % Seg Neutrophils # 10.7 H Seg Neutrophils # Man Lymphocytes # (Manual) Monocytes # (Manual) Eosinophils # (Manual) PT INR POC ABG pH POC ABG pCO2 POC ABG pO2 Sodium Potassium Chloride Carbon Dioxide BUN 29 H Creatinine 3.5 H Glucose 109 H POC Glucose 137 H Lactic Acid Calcium 7.8 L Magnesium AST ALT Alkaline Phosphatase Troponin T C-Reactive Protein Total Protein Albumin LDL Cholesterol Direct HDL Cholesterol Hepatitis C Antibody Crossmatch 11/29/17 11/30/17 11/30/17 05:26 00:26 04:17 WBC RBC Hgb Hct MCV MCH MCHC RDW Plt Count Lymph % (Auto) [place] % (Auto) Eos % (Auto) Lymph # [place] # Eos # Seg Neutrophils % Seg Neuts % (Manual) Lymphocytes % (Manual) Monocytes % (Manual) Eosinophils % (Manual) Nucleated RBC % Seg Neutrophils # Seg Neutrophils # Man Lymphocytes # (Manual) Monocytes # (Manual) Eosinophils # (Manual) PT INR POC ABG pH POC ABG pCO2 POC ABG pO2 Sodium Potassium Chloride Carbon Dioxide BUN 38 H Creatinine 4.3 H Glucose 109 H POC Glucose 129 H 152 H Lactic Acid Calcium 7.8 L Magnesium AST ALT Alkaline Phosphatase Troponin T C-Reactive Protein Total Protein Albumin LDL Cholesterol Direct HDL Cholesterol Hepatitis C Antibody Crossmatch 11/30/17 11/30/17 11/30/17 12:17 16:23 23:35 WBC RBC Hgb Hct MCV MCH MCHC RDW Plt Count Lymph % (Auto) [place] % (Auto) Eos % (Auto) Lymph # [place] # Eos # Seg Neutrophils % Seg Neuts % (Manual) Lymphocytes % (Manual) Monocytes % (Manual) Eosinophils % (Manual) Nucleated RBC % Seg Neutrophils # Seg Neutrophils # Man Lymphocytes # (Manual) Monocytes # (Manual) Eosinophils # (Manual) PT INR POC ABG pH POC ABG pCO2 POC ABG pO2 Sodium Potassium Chloride Carbon Dioxide BUN Creatinine Glucose POC Glucose 170 H 114 H 122 H Lactic Acid Calcium Magnesium AST ALT Alkaline Phosphatase Troponin T C-Reactive Protein Total Protein Albumin LDL Cholesterol Direct HDL Cholesterol Hepatitis C Antibody Crossmatch 12/01/17 12/01/17 12/01/17 04:09 04:09 12:17 WBC 14.1 H RBC 3.32 L Hgb 8.6 L Hct 27.0 L MCV 81 L MCH 26 L MCHC RDW 18.7 H Plt Count Lymph % (Auto) 5.5 L [place] % (Auto) 9.7 H Eos % (Auto) Lymph # 0.8 L [place] # 1.4 H Eos # Seg Neutrophils % 82.9 H Seg Neuts % (Manual) Lymphocytes % (Manual) Monocytes % (Manual) Eosinophils % (Manual) Nucleated RBC % Seg Neutrophils # 11.7 H Seg Neutrophils # Man Lymphocytes # (Manual) Monocytes # (Manual) Eosinophils # (Manual) PT INR POC ABG pH POC ABG pCO2 POC ABG pO2 Sodium Potassium 3.4 L Chloride Carbon Dioxide BUN 21 H Creatinine 3.0 H Glucose 108 H POC Glucose 126 H Lactic Acid Calcium 8.0 L Magnesium AST ALT Alkaline Phosphatase Troponin T C-Reactive Protein Total Protein Albumin LDL Cholesterol Direct HDL Cholesterol Hepatitis C Antibody Crossmatch 12/02/17 12/03/17 12/03/17 23:46 02:52 05:54 WBC 17.2 H RBC 3.21 L Hgb 8.5 L Hct 25.8 L MCV 80 L MCH 26 L MCHC RDW 18.4 H Plt Count 128 L Lymph % (Auto) [place] % (Auto) Eos % (Auto) Lymph # [place] # Eos # Seg Neutrophils % Seg Neuts % (Manual) Lymphocytes % (Manual) Monocytes % (Manual) Eosinophils % (Manual) Nucleated RBC % Seg Neutrophils # Seg Neutrophils # Man Lymphocytes # (Manual) Monocytes # (Manual) Eosinophils # (Manual) PT INR POC ABG pH POC ABG pCO2 POC ABG pO2 Sodium Potassium Chloride Carbon Dioxide BUN Creatinine Glucose POC Glucose 125 H 107 H Lactic Acid Calcium Magnesium AST ALT Alkaline Phosphatase Troponin T C-Reactive Protein Total Protein Albumin LDL Cholesterol Direct HDL Cholesterol Hepatitis C Antibody Crossmatch 12/03/17 12/03/17 12/04/17 12:05 Unknown 12:26 WBC RBC Hgb Hct MCV MCH MCHC RDW Plt Count Lymph % (Auto) [place] % (Auto) Eos % (Auto) Lymph # [place] # Eos # Seg Neutrophils % Seg Neuts % (Manual) Lymphocytes % (Manual) Monocytes % (Manual) Eosinophils % (Manual) Nucleated RBC % Seg Neutrophils # Seg Neutrophils # Man Lymphocytes # (Manual) Monocytes # (Manual) Eosinophils # (Manual) PT INR POC ABG pH POC ABG pCO2 POC ABG pO2 Sodium Potassium Chloride Carbon Dioxide BUN 21 H Creatinine 2.8 H Glucose 113 H POC Glucose 106 H 119 H Lactic Acid Calcium Magnesium AST ALT Alkaline Phosphatase Troponin T C-Reactive Protein Total Protein Albumin LDL Cholesterol Direct HDL Cholesterol Hepatitis C Antibody Crossmatch 12/04/17 12/05/17 12/05/17 17:57 00:52 04:05 WBC RBC 2.96 L Hgb 7.7 L Hct 24.2 L MCV 82 L MCH 26 L MCHC RDW 18.8 H Plt Count 105 L Lymph % (Auto) 10.6 L [place] % (Auto) 12.1 H Eos % (Auto) 5.2 H Lymph # 1.1 L [place] # 1.3 H Eos # 0.5 H Seg Neutrophils % 71.3 H Seg Neuts % (Manual) Lymphocytes % (Manual) Monocytes % (Manual) Eosinophils % (Manual) Nucleated RBC % Seg Neutrophils # Seg Neutrophils # Man Lymphocytes # (Manual) Monocytes # (Manual) Eosinophils # (Manual) PT INR POC ABG pH POC ABG pCO2 POC ABG pO2 Sodium Potassium Chloride Carbon Dioxide BUN Creatinine Glucose POC Glucose 140 H 117 H Lactic Acid Calcium Magnesium AST ALT Alkaline Phosphatase Troponin T C-Reactive Protein Total Protein Albumin LDL Cholesterol Direct HDL Cholesterol Hepatitis C Antibody Crossmatch 12/05/17 12/05/17 12/06/17 04:05 22:50 08:18 WBC RBC 2.80 L Hgb 7.4 L Hct 23.0 L MCV 82 L MCH 27 L MCHC RDW 19.5 H Plt Count 125 L Lymph % (Auto) [place] % (Auto) Eos % (Auto) Lymph # [place] # Eos # Seg Neutrophils % Seg Neuts % (Manual) Lymphocytes % (Manual) Monocytes % (Manual) Eosinophils % (Manual) Nucleated RBC % Seg Neutrophils # Seg Neutrophils # Man Lymphocytes # (Manual) Monocytes # (Manual) Eosinophils # (Manual) PT INR POC ABG pH POC ABG pCO2 POC ABG pO2 Sodium Potassium Chloride 107.4 H Carbon Dioxide BUN Creatinine 2.5 H Glucose POC Glucose 112 H Lactic Acid Calcium 8.3 L Magnesium AST ALT Alkaline Phosphatase Troponin T C-Reactive Protein Total Protein Albumin LDL Cholesterol Direct HDL Cholesterol Hepatitis C Antibody Crossmatch 12/06/17 12/06/17 12/06/17 08:18 12:01 23:58 WBC RBC Hgb Hct MCV MCH MCHC RDW Plt Count Lymph % (Auto) [place] % (Auto) Eos % (Auto) Lymph # [place] # Eos # Seg Neutrophils % Seg Neuts % (Manual) Lymphocytes % (Manual) Monocytes % (Manual) Eosinophils % (Manual) Nucleated RBC % Seg Neutrophils # Seg Neutrophils # Man Lymphocytes # (Manual) Monocytes # (Manual) Eosinophils # (Manual) PT INR POC ABG pH POC ABG pCO2 POC ABG pO2 Sodium Potassium Chloride 108.4 H Carbon Dioxide BUN 28 H Creatinine 3.7 H Glucose 103 H POC Glucose 106 H 108 H Lactic Acid Calcium 8.0 L Magnesium AST ALT Alkaline Phosphatase Troponin T C-Reactive Protein Total Protein Albumin LDL Cholesterol Direct HDL Cholesterol Hepatitis C Antibody Crossmatch 12/07/17 12/07/17 12/07/17 05:47 05:47 18:03 WBC RBC 2.79 L Hgb 7.3 L Hct 22.8 L MCV 82 L MCH 26 L MCHC RDW 19.1 H Plt Count 101 L Lymph % (Auto) [place] % (Auto) Eos % (Auto) Lymph # [place] # Eos # Seg Neutrophils % Seg Neuts % (Manual) 72.0 H Lymphocytes % (Manual) 13.0 L Monocytes % (Manual) Eosinophils % (Manual) 9.0 H Nucleated RBC % Seg Neutrophils # Seg Neutrophils # Man Lymphocytes # (Manual) 1.1 L Monocytes # (Manual) Eosinophils # (Manual) 0.8 H PT INR POC ABG pH POC ABG pCO2 POC ABG pO2 Sodium 146 H Potassium Chloride 109.8 H Carbon Dioxide BUN 36 H Creatinine 4.0 H Glucose POC Glucose 143 H Lactic Acid Calcium 8.0 L Magnesium AST ALT Alkaline Phosphatase Troponin T C-Reactive Protein Total Protein Albumin LDL Cholesterol Direct HDL Cholesterol Hepatitis C Antibody Crossmatch 12/07/17 12/08/17 12/08/17 23:33 05:10 05:10 WBC RBC 2.91 L Hgb 7.5 L Hct 24.4 L MCV MCH 26 L MCHC 31 L RDW 19.7 H Plt Count 109 L Lymph % (Auto) [place] % (Auto) Eos % (Auto) Lymph # [place] # Eos # Seg Neutrophils % Seg Neuts % (Manual) Lymphocytes % (Manual) 11.0 L Monocytes % (Manual) Eosinophils % (Manual) 12.0 H Nucleated RBC % Seg Neutrophils # Seg Neutrophils # Man Lymphocytes # (Manual) 0.7 L Monocytes # (Manual) Eosinophils # (Manual) 0.7 H PT INR POC ABG pH POC ABG pCO2 POC ABG pO2 Sodium 147 H Potassium Chloride 110.4 H Carbon Dioxide BUN Creatinine 2.8 H Glucose POC Glucose 107 H Lactic Acid Calcium 7.8 L Magnesium AST ALT Alkaline Phosphatase Troponin T C-Reactive Protein Total Protein Albumin LDL Cholesterol Direct HDL Cholesterol Hepatitis C Antibody Crossmatch 12/09/17 12/09/17 12/09/17 04:18 04:18 12:16 WBC RBC Hgb 7.2 L Hct 23.2 L MCV MCH MCHC RDW Plt Count Lymph % (Auto) [place] % (Auto) Eos % (Auto) Lymph # [place] # Eos # Seg Neutrophils % Seg Neuts % (Manual) Lymphocytes % (Manual) Monocytes % (Manual) Eosinophils % (Manual) Nucleated RBC % Seg Neutrophils # Seg Neutrophils # Man Lymphocytes # (Manual) Monocytes # (Manual) Eosinophils # (Manual) PT INR POC ABG pH POC ABG pCO2 POC ABG pO2 Sodium 150 H Potassium Chloride 114.5 H Carbon Dioxide BUN 25 H Creatinine 3.3 H Glucose POC Glucose 142 H Lactic Acid Calcium 7.7 L Magnesium AST ALT Alkaline Phosphatase Troponin T C-Reactive Protein Total Protein Albumin LDL Cholesterol Direct HDL Cholesterol Hepatitis C Antibody Crossmatch 12/10/17 12/10/17 05:14 05:14 WBC RBC 2.81 L Hgb 7.4 L Hct 23.9 L MCV MCH 26 L MCHC 31 L RDW 19.1 H Plt Count 128 L Lymph % (Auto) [place] % (Auto) Eos % (Auto) Lymph # [place] # Eos # Seg Neutrophils % Seg Neuts % (Manual) 78.0 H Lymphocytes % (Manual) 8.0 L Monocytes % (Manual) Eosinophils % (Manual) 5.0 H Nucleated RBC % Seg Neutrophils # Seg Neutrophils # Man Lymphocytes # (Manual) 0.6 L Monocytes # (Manual) Eosinophils # (Manual) PT INR POC ABG pH POC ABG pCO2 POC ABG pO2 Sodium Potassium Chloride Carbon Dioxide BUN Creatinine 2.2 H Glucose POC Glucose Lactic Acid Calcium 7.8 L Magnesium AST ALT Alkaline Phosphatase Troponin T C-Reactive Protein Total Protein Albumin LDL Cholesterol Direct HDL Cholesterol Hepatitis C Antibody Crossmatch
[2017-12-10] MEDS: D5NS 0.2% 1,000 ML IV SCH (10:41)
[2017-12-10] MEDS: SODIUM CHLORIDE FLUSH SYRINGE 10 ML IV SCH ×2 (10:41→21:12)
--- NOTE | 2017-12-10 13:19 | Progress Note ---
Assessment and Plan Peritonitis and possible intra-abdominal abscess - likely from dislodged peg tube - removed PEG tube on 11/22 -peritoneal Fluid positive for Enterobacter, Heather (non albicans) -Antibiotic managed by ID -s/p multiple intraabdominal drainages placed by IR and GS. also had abdominal washout by GS -Repeat CT scan on 12/04 showed persistent abdominal collection of abscess/ fluid and plan for repeat drainage of upper abdominal midline fluid collection and a perisplenic fluid collection on 12/06 by IR Acute on chronic respiratory failure with hypoxia - likely due to aspiratin and PNA -Status post tracheostomy, currently on T-piece - Pulmonology following Severe sepsis with shock likely secondary to aspiration pneumonia -Off IV pressors -Blood and sputum cultures negative Aspiration pneumonia with mucus plugging -treated with zosyn Acute kidney injury secondary to ATN -on Intermittent HD started on 11/23/17 with vascath -Creatinine level improved -Nephrology following Anemia of acute loss secondary to gastric ulcer and gastritis -Status post EGD on 11/18/2017 -Status post blood transfusion -H/H stable, will monitor Acute encephalopathy, likely multifactorial -Will continue to monitor clinically -Prognosis is poor Hypernatremia -Resolved Hypokalemia -We cont to monitor level and replete as needed Hypomagnesemia -Resolved status post repletion Oropharyngeal dysphagia -Status post PEG tube placement on 11/06, now removed -On tube feeding with dobhoff History of recent CVA -Not on aspirin due to recent bleed RT ICA stenosis -s/p recent endarterectomy Disposition: Patient overall prognosis remains poor. Continue management Brief History 67yo M with history CVA, a PEG tube placed by GI on 11/06 presented (11/12) from rehab for respiratory failure, sepsis, hypotension and multilober PNA. Recent work-up for hypotension showed a dislodged PEG tube on CT scan with extraluminal PO contrast that was limited to the upper abdomen and left gutter. Pt had an EGD on 11/18 that did not show the PEG button or an obvious hole in the stomach. There was no free air noted on CXR's. Pt had IR guided drainage placed in the 3 different locations of abdomen. He is now s/p trach by ENT. Recent Ct abdoemn/pelvis on 12/04/17 showed persistent abdominal collection of abscess/fluid and s/p repeat drainage 12/06/17 Hospitalist Physical General appearance: Present: no acute distress - EENT Eyes: Present: PERRL ENT: clear oral mucosa - Neck Neck: Present: supple, other (status post tracheostomy on T-piece) - Respiratory Respiratory effort: normal Respiratory: bilateral: CTA - Cardiovascular Rhythm: other (tachycardia) Heart Sounds: Present: S1 & S2 - Extremities Extremity abnormal: edema (in BLE) - Abdominal General gastrointestinal: non-distended, distended, normal bowel sounds, other ( firm on palpation), total [address] on the left side of - Neurologic Neurologic: other (patient is awake but unable to follow commands) Subjective Date of service: 12/10/17 Principal diagnosis: Acute hypoxic respiratory failure, s/p Trach Interval history: Pt seen and examined, nonverbal No acute event reported by RN discussed plan of care with RN at bedside drainage significantly reduced Objective - Constitutional Vitals: Vital Signs - 12hr 12/10/17 12/10/17 12/10/17 02:00 02:25 03:00 Temperature Pulse Rate 82 93 H Pulse Rate [ Left Dorsalis Pedis] Respiratory 29 H 30 H Rate Blood Pressure 145/85 145/85 O2 Sat by Pulse 100 100 Oximetry O2 Sat by Pulse 100 Oximetry [ Assessment] 12/10/17 12/10/17 12/10/17 04:00 05:00 06:00 Temperature 98.7 F Pulse Rate 77 129 H 87 Pulse Rate [ 92 H Left Dorsalis Pedis] Respiratory 25 H Rate Blood Pressure 150/85 176/101 143/84 O2 Sat by Pulse 100 100 99 Oximetry O2 Sat by Pulse Oximetry [ Assessment] 12/10/17 12/10/17 12/10/17 07:00 08:00 09:00 Temperature 97.9 F Pulse Rate 79 89 93 H Pulse Rate [ Left Dorsalis Pedis] Respiratory Rate Blood Pressure 139/83 160/89 160/101 O2 Sat by Pulse 100 100 100 Oximetry O2 Sat by Pulse Oximetry [ Assessment] 12/10/17 12/10/17 12/10/17 09:44 10:00 11:00 Temperature Pulse Rate 83 79 93 H Pulse Rate [ Left Dorsalis Pedis] Respiratory Rate Blood Pressure 160/101 131/85 156/97 O2 Sat by Pulse 100 100 Oximetry O2 Sat by Pulse Oximetry [ Assessment] 12/10/17 12/10/17 12:00 13:00 Temperature 98.8 F Pulse Rate 75 80 Pulse Rate [ Left Dorsalis Pedis] Respiratory Rate Blood Pressure 154/94 142/87 O2 Sat by Pulse 99 100 Oximetry O2 Sat by Pulse Oximetry [ Assessment] - Labs CBC & Chem 7: 12/10/17 05:14 12/10/17 05:14 Labs: Abnormal lab results 12/10/17 12/10/17 Range/Units 05:14 05:14 RBC 2.81 L (3.65-5.03) M/mm3 Hgb 7.4 L (11.8-15.2) gm/dl Hct 23.9 L (35.5-45.6) % MCH 26 L (28-32) pg MCHC 31 L (32-34) % RDW 19.1 H (13.2-15.2) % Plt Count 128 L (140-440) K/mm3 Seg Neuts % (Manual) 78.0 H (40.0-70.0) % Lymphocytes % (Manual) 8.0 L (13.4-35.0) % Eosinophils % (Manual) 5.0 H (0.0-4.3) % Lymphocytes # (Manual) 0.6 L (1.2-5.4) K/mm3 Creatinine 2.2 H (0.8-1.5) mg/dL Calcium 7.8 L (8.4-10.2) mg/dL
--- NOTE | 2017-12-10 17:38 | Event Note ---
Date: 12/10/17 Patient currently with left common femoral vein VasCath. We will plan on converting this to a internal jugular vein VasCath tomorrow. Secondary to the patient's infectious disease risk, would not place a PermCath in this patient.
[2017-12-10] MEDS: PREVACID SOLUTAB FEEDTUBE SCH (21:13)
[2017-12-11] MEDS: APRESOLINE IV PRN (02:15)
[2017-12-11] MEDS: D5NS 0.2% 1,000 ML IV SCH ×3 (03:28→21:53)
--- NOTE | 2017-12-11 07:39 | Event Note ---
Date: 12/11/17 Drain output dropping off. If minimal to no output over the weekend, will remove additional drains on Thursday. Please call with questions.
--- NOTE | 2017-12-11 11:12 | Progress Note ---
Assessment and Plan 67 y/o male with acute on chronic respiratory failure, now trached, with peritonitis from dislodged peg tube s/p 2 IR drains now with NGT feedings now spiking fevers again. 1. Trach Care 2. IV abx therapy 3. Drains to be possibly removed on Thursday, pending output from weekend 4. IR to place vascath in IJ Subjective Date of service: 12/11/17 Principal diagnosis: Acute hypoxic respiratory failure, s/p Trach Interval history: No acute events. STable breathing status Objective Vital Signs - 12hr 12/10/17 12/11/17 12/11/17 23:40 00:00 01:00 Temperature 98.5 F Pulse Rate 89 98 H Respiratory 26 H 30 H Rate Blood Pressure 167/101 173/99 O2 Sat by Pulse 100 100 Oximetry O2 Sat by Pulse Oximetry [ Assessment] 12/11/17 12/11/17 12/11/17 02:00 03:00 04:00 Temperature 99.5 F Pulse Rate 92 H 148 H 107 H Respiratory 26 H 58 H 18 Rate Blood Pressure 172/101 159/89 138/79 O2 Sat by Pulse 100 100 99 Oximetry O2 Sat by Pulse Oximetry [ Assessment] 12/11/17 12/11/17 12/11/17 04:07 05:00 06:00 Temperature Pulse Rate 115 H 98 H Respiratory 19 29 H Rate Blood Pressure 110/73 112/66 O2 Sat by Pulse 98 99 Oximetry O2 Sat by Pulse 99 Oximetry [ Assessment] 12/11/17 12/11/17 12/11/17 08:00 09:45 09:52 Temperature 97.4 F L 97.8 F Pulse Rate 102 H Respiratory 26 H Rate Blood Pressure 128/81 O2 Sat by Pulse Oximetry O2 Sat by Pulse 98 Oximetry [ Assessment] 12/11/17 12/11/17 12/11/17 09:54 10:00 10:15 Temperature Pulse Rate 101 H 90 Respiratory Rate Blood Pressure 135/90 135/90 O2 Sat by Pulse 100 Oximetry O2 Sat by Pulse Oximetry [ Assessment] 12/11/17 10:30 Temperature Pulse Rate 112 H Respiratory Rate Blood Pressure 107/67 O2 Sat by Pulse Oximetry O2 Sat by Pulse Oximetry [ Assessment] Constitutional: no acute distress, alert Eyes: non-icteric ENT: oropharynx moist Neck: supple (trach in position), no JVD Effort: normal Ascultation: Bilateral: clear, rhonchi (bilateral,post tussive), other (coarse BS bilaterally) Cardiovascular: regular rate and rhythm Gastrointestinal: normoactive bowel sounds, soft, non-tender, other (drainages in place) Integumentary: normal Extremities: no cyanosis, pink and warm, anasarca Neurologic: other (L hemiparesis,awake, response to my voice) Psychiatric: other (unable to assess) CBC and BMP: 12/10/17 05:14 12/10/17 05:14 ABG, PT/INR, D-dimer: ABG POC ABG pH 7.505 (7.35-7.45) H 11/23/17 04:56 POC ABG pCO2 26.3 (35-45) L 11/23/17 04:56 POC ABG pO2 100 (80-105) 11/23/17 04:56 POC ABG HCO3 20.8 11/23/17 04:56 POC ABG Total CO2 22 11/23/17 04:56 POC ABG O2 Sat 98 11/23/17 04:56 PT/INR, D-dimer PT 23.6 Sec. (12.2-14.9) H 11/26/17 06:29 INR 1.96 (0.87-1.13) H 11/26/17 06:29 Abnormal lab findings: Abnormal Labs 11/11/17 11/11/17 11/11/17 23:18 23:20 23:20 WBC RBC Hgb 10.4 L Hct 32.6 L D MCV MCH 27 L MCHC RDW 17.4 H Plt Count 105 L Lymph % (Auto) [place] % (Auto) Eos % (Auto) Lymph # [place] # Eos # Seg Neutrophils % Seg Neuts % (Manual) Lymphocytes % (Manual) 8.0 L Monocytes % (Manual) Eosinophils % (Manual) Nucleated RBC % 1.0 H Seg Neutrophils # Seg Neutrophils # Man Lymphocytes # (Manual) 0.7 L Monocytes # (Manual) Eosinophils # (Manual) PT INR POC ABG pH 7.550 H POC ABG pCO2 31.6 L POC ABG pO2 Sodium 146 H Potassium Chloride Carbon Dioxide BUN 26 H Creatinine 1.7 H D Glucose 133 H POC Glucose Lactic Acid Calcium Magnesium AST ALT Alkaline Phosphatase Troponin T 0.117 H* C-Reactive Protein Total Protein Albumin 2.5 L LDL Cholesterol Direct 42 L HDL Cholesterol 24 L Hepatitis C Antibody Crossmatch 11/11/17 11/12/17 11/12/17 23:20 00:23 00:23 WBC RBC Hgb Hct MCV MCH MCHC RDW Plt Count Lymph % (Auto) [place] % (Auto) Eos % (Auto) Lymph # [place] # Eos # Seg Neutrophils % Seg Neuts % (Manual) Lymphocytes % (Manual) Monocytes % (Manual) Eosinophils % (Manual) Nucleated RBC % Seg Neutrophils # Seg Neutrophils # Man Lymphocytes # (Manual) Monocytes # (Manual) Eosinophils # (Manual) PT 16.7 H INR 1.28 H POC ABG pH POC ABG pCO2 POC ABG pO2 Sodium Potassium Chloride Carbon Dioxide BUN Creatinine Glucose POC Glucose Lactic Acid 3.20 H* Calcium Magnesium AST ALT Alkaline Phosphatase Troponin T C-Reactive Protein 25.70 H Total Protein Albumin LDL Cholesterol Direct HDL Cholesterol Hepatitis C Antibody Crossmatch 11/12/17 11/12/17 11/12/17 00:46 01:27 01:27 WBC RBC Hgb Hct MCV MCH MCHC RDW Plt Count Lymph % (Auto) [place] % (Auto) Eos % (Auto) Lymph # [place] # Eos # Seg Neutrophils % Seg Neuts % (Manual) Lymphocytes % (Manual) Monocytes % (Manual) Eosinophils % (Manual) Nucleated RBC % Seg Neutrophils # Seg Neutrophils # Man Lymphocytes # (Manual) Monocytes # (Manual) Eosinophils # (Manual) PT INR POC ABG pH 7.495 H POC ABG pCO2 32.0 L POC ABG pO2 64 L Sodium Potassium Chloride Carbon Dioxide BUN Creatinine Glucose POC Glucose Lactic Acid 3.70 H* Calcium Magnesium AST ALT Alkaline Phosphatase Troponin T 0.096 H C-Reactive Protein Total Protein Albumin LDL Cholesterol Direct HDL Cholesterol Hepatitis C Antibody Crossmatch 11/12/17 11/12/17 11/12/17 03:21 04:50 06:27 WBC RBC Hgb Hct MCV MCH MCHC RDW Plt Count Lymph % (Auto) [place] % (Auto) Eos % (Auto) Lymph # [place] # Eos # Seg Neutrophils % Seg Neuts % (Manual) Lymphocytes % (Manual) Monocytes % (Manual) Eosinophils % (Manual) Nucleated RBC % Seg Neutrophils # Seg Neutrophils # Man Lymphocytes # (Manual) Monocytes # (Manual) Eosinophils # (Manual) PT INR POC ABG pH POC ABG pCO2 POC ABG pO2 109 H Sodium Potassium Chloride Carbon Dioxide BUN Creatinine Glucose POC Glucose Lactic Acid 3.80 H* 2.20 H* Calcium Magnesium AST ALT Alkaline Phosphatase Troponin T C-Reactive Protein Total Protein Albumin LDL Cholesterol Direct HDL Cholesterol Hepatitis C Antibody Crossmatch 11/12/17 11/12/17 11/12/17 09:24 09:24 09:24 WBC RBC Hgb 10.4 L Hct 33.4 L MCV MCH MCHC RDW Plt Count Lymph % (Auto) [place] % (Auto) Eos % (Auto) Lymph # [place] # Eos # Seg Neutrophils % Seg Neuts % (Manual) Lymphocytes % (Manual) Monocytes % (Manual) Eosinophils % (Manual) Nucleated RBC % Seg Neutrophils # Seg Neutrophils # Man Lymphocytes # (Manual) Monocytes # (Manual) Eosinophils # (Manual) PT INR POC ABG pH POC ABG pCO2 POC ABG pO2 Sodium Potassium Chloride Carbon Dioxide BUN Creatinine Glucose POC Glucose Lactic Acid 2.90 H* Calcium Magnesium AST ALT Alkaline Phosphatase Troponin T 0.091 H C-Reactive Protein Total Protein Albumin LDL Cholesterol Direct HDL Cholesterol Hepatitis C Antibody Crossmatch 11/12/17 11/12/17 11/12/17 12:56 20:03 Unknown WBC RBC Hgb Hct MCV MCH MCHC RDW Plt Count Lymph % (Auto) [place] % (Auto) Eos % (Auto) Lymph # [place] # Eos # Seg Neutrophils % Seg Neuts % (Manual) Lymphocytes % (Manual) Monocytes % (Manual) Eosinophils % (Manual) Nucleated RBC % Seg Neutrophils # Seg Neutrophils # Man Lymphocytes # (Manual) Monocytes # (Manual) Eosinophils # (Manual) PT INR POC ABG pH POC ABG pCO2 POC ABG pO2 Sodium Potassium Chloride Carbon Dioxide BUN Creatinine Glucose POC Glucose Lactic Acid 3.60 H* Calcium Magnesium AST ALT Alkaline Phosphatase Troponin T 0.102 H* 0.156 H* D C-Reactive Protein Total Protein Albumin LDL Cholesterol Direct HDL Cholesterol Hepatitis C Antibody Crossmatch 11/12/17 11/13/17 11/13/17 Unknown 04:50 04:50 WBC 12.2 H RBC 3.51 L Hgb 9.3 L Hct 30.1 L MCV MCH 26 L MCHC 31 L RDW 18.0 H Plt Count 128 L Lymph % (Auto) 8.6 L [place] % (Auto) 11.1 H Eos % (Auto) Lymph # 1.1 L [place] # 1.4 H Eos # Seg Neutrophils % 80.1 H Seg Neuts % (Manual) Lymphocytes % (Manual) Monocytes % (Manual) Eosinophils % (Manual) Nucleated RBC % Seg Neutrophils # 9.8 H Seg Neutrophils # Man Lymphocytes # (Manual) Monocytes # (Manual) Eosinophils # (Manual) PT INR POC ABG pH POC ABG pCO2 POC ABG pO2 Sodium 149 H Potassium 5.1 H Chloride 114.4 H Carbon Dioxide 18 L BUN 52 H Creatinine 3.3 H D Glucose 129 H POC Glucose Lactic Acid Calcium 7.9 L Magnesium AST ALT Alkaline Phosphatase Troponin T 0.098 H C-Reactive Protein Total Protein Albumin LDL Cholesterol Direct HDL Cholesterol Hepatitis C Antibody Crossmatch 11/13/17 11/13/17 11/14/17 04:51 09:34 04:21 WBC RBC Hgb Hct MCV MCH MCHC RDW Plt Count Lymph % (Auto) [place] % (Auto) Eos % (Auto) Lymph # [place] # Eos # Seg Neutrophils % Seg Neuts % (Manual) Lymphocytes % (Manual) Monocytes % (Manual) Eosinophils % (Manual) Nucleated RBC % Seg Neutrophils # Seg Neutrophils # Man Lymphocytes # (Manual) Monocytes # (Manual) Eosinophils # (Manual) PT INR POC ABG pH POC ABG pCO2 30.1 L 29.8 L POC ABG pO2 135 H Sodium Potassium Chloride Carbon Dioxide BUN Creatinine Glucose POC Glucose Lactic Acid 2.10 H* Calcium Magnesium AST ALT Alkaline Phosphatase Troponin T C-Reactive Protein Total Protein Albumin LDL Cholesterol Direct HDL Cholesterol Hepatitis C Antibody Crossmatch 11/15/17 11/15/17 11/16/17 04:52 15:50 05:17 WBC RBC Hgb Hct MCV MCH MCHC RDW Plt Count Lymph % (Auto) [place] % (Auto) Eos % (Auto) Lymph # [place] # Eos # Seg Neutrophils % Seg Neuts % (Manual) Lymphocytes % (Manual) Monocytes % (Manual) Eosinophils % (Manual) Nucleated RBC % Seg Neutrophils # Seg Neutrophils # Man Lymphocytes # (Manual) Monocytes # (Manual) Eosinophils # (Manual) PT INR POC ABG pH POC ABG pCO2 29.5 L 31.5 L POC ABG pO2 115 H 122 H Sodium 154 H Potassium Chloride 117.9 H Carbon Dioxide 19 L BUN 87 H Creatinine 4.1 H Glucose POC Glucose Lactic Acid Calcium 8.1 L Magnesium AST ALT Alkaline Phosphatase Troponin T C-Reactive Protein Total Protein Albumin LDL Cholesterol Direct HDL Cholesterol Hepatitis C Antibody Crossmatch 11/16/17 11/17/17 11/17/17 16:37 04:07 10:00 WBC 14.7 H RBC 3.23 L Hgb 8.3 L Hct 28.1 L MCV MCH 26 L MCHC 30 L RDW 18.8 H Plt Count Lymph % (Auto) [place] % (Auto) Eos % (Auto) Lymph # [place] # Eos # Seg Neutrophils % Seg Neuts % (Manual) 75 H Lymphocytes % (Manual) 8.0 L Monocytes % (Manual) Eosinophils % (Manual) Nucleated RBC % 1.0 H Seg Neutrophils # Seg Neutrophils # Man 11.0 H Lymphocytes # (Manual) Monocytes # (Manual) 0.9 H Eosinophils # (Manual) PT INR POC ABG pH POC ABG pCO2 POC ABG pO2 Sodium 153 H 155 H Potassium Chloride 117.3 H 119.4 H Carbon Dioxide 19 L 20 L BUN 90 H 89 H Creatinine 3.9 H 3.6 H Glucose 111 H 115 H POC Glucose Lactic Acid Calcium 8.1 L 8.0 L Magnesium AST ALT Alkaline Phosphatase Troponin T C-Reactive Protein Total Protein Albumin LDL Cholesterol Direct HDL Cholesterol Hepatitis C Antibody Crossmatch 11/18/17 11/18/17 11/18/17 04:34 04:34 04:34 WBC 15.5 H RBC 3.13 L Hgb 8.1 L Hct 26.3 L MCV MCH 26 L MCHC 31 L RDW 18.6 H Plt Count Lymph % (Auto) [place] % (Auto) Eos % (Auto) Lymph # [place] # Eos # Seg Neutrophils % Seg Neuts % (Manual) 81.0 H Lymphocytes % (Manual) 7.0 L Monocytes % (Manual) Eosinophils % (Manual) Nucleated RBC % 1.0 H Seg Neutrophils # Seg Neutrophils # Man 12.6 H Lymphocytes # (Manual) 1.1 L Monocytes # (Manual) Eosinophils # (Manual) PT 16.7 H INR 1.30 H POC ABG pH POC ABG pCO2 POC ABG pO2 Sodium 155 H Potassium 3.2 L Chloride 121.0 H Carbon Dioxide 20 L BUN 74 H Creatinine 2.9 H Glucose 126 H POC Glucose Lactic Acid Calcium 7.9 L Magnesium AST ALT Alkaline Phosphatase Troponin T C-Reactive Protein Total Protein Albumin LDL Cholesterol Direct HDL Cholesterol Hepatitis C Antibody Crossmatch 11/19/17 11/19/17 11/20/17 04:44 04:44 00:38 WBC 19.0 H 22.2 H RBC 3.20 L 3.17 L Hgb 8.4 L 7.9 L Hct 27.9 L 26.4 L MCV 83 L MCH 26 L 25 L MCHC 30 L 30 L RDW 19.1 H 18.9 H Plt Count Lymph % (Auto) [place] % (Auto) Eos % (Auto) Lymph # [place] # Eos # Seg Neutrophils % Seg Neuts % (Manual) 83.0 H Lymphocytes % (Manual) 3.0 L Monocytes % (Manual) 9.0 H Eosinophils % (Manual) Nucleated RBC % Seg Neutrophils # Seg Neutrophils # Man 18.4 H Lymphocytes # (Manual) 0.7 L Monocytes # (Manual) 2.0 H Eosinophils # (Manual) PT INR POC ABG pH POC ABG pCO2 POC ABG pO2 Sodium 152 H Potassium Chloride 117.1 H Carbon Dioxide 17 L BUN 66 H Creatinine 2.8 H Glucose 119 H POC Glucose Lactic Acid Calcium 7.8 L Magnesium 2.70 H AST ALT Alkaline Phosphatase Troponin T C-Reactive Protein Total Protein Albumin LDL Cholesterol Direct HDL Cholesterol Hepatitis C Antibody Crossmatch 11/20/17 11/20/17 11/20/17 03:29 04:48 13:38 WBC RBC Hgb Hct MCV MCH MCHC RDW Plt Count Lymph % (Auto) [place] % (Auto) Eos % (Auto) Lymph # [place] # Eos # Seg Neutrophils % Seg Neuts % (Manual) Lymphocytes % (Manual) Monocytes % (Manual) Eosinophils % (Manual) Nucleated RBC % Seg Neutrophils # Seg Neutrophils # Man Lymphocytes # (Manual) Monocytes # (Manual) Eosinophils # (Manual) PT INR POC ABG pH POC ABG pCO2 29.4 L POC ABG pO2 Sodium 148 H Potassium 3.4 L Chloride 113.7 H Carbon Dioxide 18 L BUN 59 H Creatinine 2.7 H Glucose 113 H POC Glucose 128 H Lactic Acid Calcium 7.8 L Magnesium AST ALT Alkaline Phosphatase Troponin T C-Reactive Protein Total Protein Albumin LDL Cholesterol Direct HDL Cholesterol Hepatitis C Antibody Crossmatch 11/20/17 11/20/17 11/21/17 17:38 23:40 00:13 WBC RBC Hgb 8.4 L Hct 28.0 L MCV MCH MCHC RDW Plt Count Lymph % (Auto) [place] % (Auto) Eos % (Auto) Lymph # [place] # Eos # Seg Neutrophils % Seg Neuts % (Manual) Lymphocytes % (Manual) Monocytes % (Manual) Eosinophils % (Manual) Nucleated RBC % Seg Neutrophils # Seg Neutrophils # Man Lymphocytes # (Manual) Monocytes # (Manual) Eosinophils # (Manual) PT INR POC ABG pH POC ABG pCO2 POC ABG pO2 Sodium Potassium Chloride Carbon Dioxide BUN Creatinine Glucose POC Glucose 115 H 145 H Lactic Acid Calcium Magnesium AST ALT Alkaline Phosphatase Troponin T C-Reactive Protein Total Protein Albumin LDL Cholesterol Direct HDL Cholesterol Hepatitis C Antibody Crossmatch 11/21/17 11/21/17 11/21/17 04:30 04:30 04:58 WBC 21.0 H RBC Hgb 9.6 L Hct 32.7 L MCV MCH 25 L MCHC 29 L RDW 19.7 H Plt Count 746 H Lymph % (Auto) [place] % (Auto) Eos % (Auto) Lymph # [place] # Eos # Seg Neutrophils % Seg Neuts % (Manual) Lymphocytes % (Manual) Monocytes % (Manual) Eosinophils % (Manual) Nucleated RBC % Seg Neutrophils # Seg Neutrophils # Man Lymphocytes # (Manual) Monocytes # (Manual) Eosinophils # (Manual) PT INR POC ABG pH POC ABG pCO2 POC ABG pO2 Sodium Potassium Chloride 109.4 H Carbon Dioxide 14 L BUN 59 H Creatinine 3.0 H Glucose 137 H POC Glucose 132 H Lactic Acid Calcium 7.6 L Magnesium AST ALT Alkaline Phosphatase Troponin T C-Reactive Protein Total Protein Albumin LDL Cholesterol Direct HDL Cholesterol Hepatitis C Antibody Crossmatch 11/21/17 11/21/17 11/21/17 06:30 13:43 14:17 WBC 38.2 H RBC Hgb 9.0 L Hct 32.3 L MCV MCH 25 L MCHC 28 L RDW 20.0 H Plt Count 766 H Lymph % (Auto) [place] % (Auto) Eos % (Auto) Lymph # [place] # Eos # Seg Neutrophils % Seg Neuts % (Manual) 85.0 H Lymphocytes % (Manual) 1.0 L Monocytes % (Manual) Eosinophils % (Manual) Nucleated RBC % 2.0 H Seg Neutrophils # Seg Neutrophils # Man 32.5 H Lymphocytes # (Manual) 0.4 L Monocytes # (Manual) 2.3 H Eosinophils # (Manual) PT INR POC ABG pH POC ABG pCO2 18.6 L POC ABG pO2 121 H Sodium 146 H Potassium Chloride 110.9 H Carbon Dioxide 11 L BUN 62 H Creatinine 4.0 H Glucose 64 L POC Glucose Lactic Acid Calcium 7.6 L Magnesium AST ALT Alkaline Phosphatase Troponin T C-Reactive Protein Total Protein Albumin LDL Cholesterol Direct HDL Cholesterol Hepatitis C Antibody Crossmatch 11/21/17 11/21/17 11/22/17 14:17 19:09 00:05 WBC RBC Hgb Hct MCV MCH MCHC RDW Plt Count Lymph % (Auto) [place] % (Auto) Eos % (Auto) Lymph # [place] # Eos # Seg Neutrophils % Seg Neuts % (Manual) Lymphocytes % (Manual) Monocytes % (Manual) Eosinophils % (Manual) Nucleated RBC % Seg Neutrophils # Seg Neutrophils # Man Lymphocytes # (Manual) Monocytes # (Manual) Eosinophils # (Manual) PT INR POC ABG pH POC ABG pCO2 20.0 L POC ABG pO2 Sodium Potassium Chloride Carbon Dioxide BUN Creatinine Glucose POC Glucose 127 H Lactic Acid 7.70 H* Calcium Magnesium AST ALT Alkaline Phosphatase Troponin T C-Reactive Protein Total Protein Albumin LDL Cholesterol Direct HDL Cholesterol Hepatitis C Antibody Crossmatch 11/22/17 11/22/17 11/22/17 03:53 06:00 07:25 WBC RBC Hgb Hct MCV MCH MCHC RDW Plt Count Lymph % (Auto) [place] % (Auto) Eos % (Auto) Lymph # [place] # Eos # Seg Neutrophils % Seg Neuts % (Manual) Lymphocytes % (Manual) Monocytes % (Manual) Eosinophils % (Manual) Nucleated RBC % Seg Neutrophils # Seg Neutrophils # Man Lymphocytes # (Manual) Monocytes # (Manual) Eosinophils # (Manual) PT INR POC ABG pH POC ABG pCO2 22.2 L POC ABG pO2 Sodium 147 H Potassium Chloride 111.9 H Carbon Dioxide 16 L BUN 72 H Creatinine 5.1 H Glucose 181 H POC Glucose 180 H Lactic Acid Calcium 7.1 L Magnesium AST ALT Alkaline Phosphatase Troponin T C-Reactive Protein Total Protein Albumin LDL Cholesterol Direct HDL Cholesterol Hepatitis C Antibody Crossmatch 11/22/17 11/22/17 11/22/17 07:25 07:25 12:05 WBC 31.4 H RBC 3.22 L Hgb 8.0 L Hct 26.7 L MCV 83 L MCH 25 L MCHC 30 L RDW 19.4 H Plt Count 602 H Lymph % (Auto) [place] % (Auto) Eos % (Auto) Lymph # [place] # Eos # Seg Neutrophils % Seg Neuts % (Manual) Lymphocytes % (Manual) Monocytes % (Manual) Eosinophils % (Manual) Nucleated RBC % Seg Neutrophils # Seg Neutrophils # Man Lymphocytes # (Manual) Monocytes # (Manual) Eosinophils # (Manual) PT INR POC ABG pH POC ABG pCO2 POC ABG pO2 Sodium Potassium Chloride Carbon Dioxide BUN Creatinine Glucose POC Glucose 182 H Lactic Acid 5.00 H* Calcium Magnesium AST ALT Alkaline Phosphatase Troponin T C-Reactive Protein Total Protein Albumin LDL Cholesterol Direct HDL Cholesterol Hepatitis C Antibody Crossmatch 11/22/17 11/23/17 11/23/17 19:45 01:28 04:56 WBC RBC Hgb Hct MCV MCH MCHC RDW Plt Count Lymph % (Auto) [place] % (Auto) Eos % (Auto) Lymph # [place] # Eos # Seg Neutrophils % Seg Neuts % (Manual) Lymphocytes % (Manual) Monocytes % (Manual) Eosinophils % (Manual) Nucleated RBC % Seg Neutrophils # Seg Neutrophils # Man Lymphocytes # (Manual) Monocytes # (Manual) Eosinophils # (Manual) PT INR POC ABG pH 7.505 H POC ABG pCO2 26.3 L POC ABG pO2 Sodium Potassium Chloride Carbon Dioxide BUN Creatinine Glucose POC Glucose 165 H Lactic Acid Calcium Magnesium AST ALT Alkaline Phosphatase Troponin T C-Reactive Protein Total Protein Albumin LDL Cholesterol Direct HDL Cholesterol Hepatitis C Antibody Reactive A Crossmatch 11/23/17 11/23/17 11/23/17 07:05 12:32 17:53 WBC RBC Hgb Hct MCV MCH MCHC RDW Plt Count Lymph % (Auto) [place] % (Auto) Eos % (Auto) Lymph # [place] # Eos # Seg Neutrophils % Seg Neuts % (Manual) Lymphocytes % (Manual) Monocytes % (Manual) Eosinophils % (Manual) Nucleated RBC % Seg Neutrophils # Seg Neutrophils # Man Lymphocytes # (Manual) Monocytes # (Manual) Eosinophils # (Manual) PT INR POC ABG pH POC ABG pCO2 POC ABG pO2 Sodium Potassium Chloride Carbon Dioxide 18 L BUN 61 H Creatinine 4.2 H Glucose 153 H POC Glucose 138 H 173 H Lactic Acid Calcium 7.5 L Magnesium AST ALT Alkaline Phosphatase Troponin T C-Reactive Protein Total Protein Albumin LDL Cholesterol Direct HDL Cholesterol Hepatitis C Antibody Crossmatch 11/23/17 11/24/17 11/24/17 23:41 05:42 05:42 WBC 21.5 H RBC 2.48 L Hgb 6.2 L Hct 20.3 L D MCV 82 L MCH 25 L MCHC 31 L RDW 18.9 H Plt Count Lymph % (Auto) [place] % (Auto) Eos % (Auto) Lymph # [place] # Eos # Seg Neutrophils % Seg Neuts % (Manual) 94.0 H Lymphocytes % (Manual) 3.0 L Monocytes % (Manual) Eosinophils % (Manual) Nucleated RBC % Seg Neutrophils # Seg Neutrophils # Man 20.2 H Lymphocytes # (Manual) 0.6 L Monocytes # (Manual) Eosinophils # (Manual) PT INR POC ABG pH POC ABG pCO2 POC ABG pO2 Sodium 149 H Potassium 2.8 L* D Chloride 113.9 H Carbon Dioxide 19 L BUN 31 H Creatinine 2.3 H Glucose 103 H POC Glucose 133 H Lactic Acid Calcium 5.3 L* D Magnesium 1.30 L AST ALT Alkaline Phosphatase Troponin T C-Reactive Protein Total Protein Albumin LDL Cholesterol Direct HDL Cholesterol Hepatitis C Antibody Crossmatch 11/24/17 11/24/17 11/24/17 05:42 08:27 08:27 WBC RBC Hgb Hct MCV MCH MCHC RDW Plt Count Lymph % (Auto) [place] % (Auto) Eos % (Auto) Lymph # [place] # Eos # Seg Neutrophils % Seg Neuts % (Manual) Lymphocytes % (Manual) Monocytes % (Manual) Eosinophils % (Manual) Nucleated RBC % Seg Neutrophils # Seg Neutrophils # Man Lymphocytes # (Manual) Monocytes # (Manual) Eosinophils # (Manual) PT INR POC ABG pH POC ABG pCO2 POC ABG pO2 Sodium Potassium Chloride Carbon Dioxide BUN Creatinine Glucose POC Glucose Lactic Acid 5.40 H* 5.20 H* Calcium Magnesium AST ALT Alkaline Phosphatase Troponin T C-Reactive Protein Total Protein Albumin LDL Cholesterol Direct HDL Cholesterol Hepatitis C Antibody Crossmatch See Detail 11/24/17 11/24/17 11/24/17 12:13 17:22 21:53 WBC 23.0 H RBC 3.32 L Hgb 8.8 L Hct 27.1 L D MCV 82 L MCH 26 L MCHC RDW 17.3 H Plt Count Lymph % (Auto) [place] % (Auto) Eos % (Auto) Lymph # [place] # Eos # Seg Neutrophils % Seg Neuts % (Manual) Lymphocytes % (Manual) Monocytes % (Manual) Eosinophils % (Manual) Nucleated RBC % Seg Neutrophils # Seg Neutrophils # Man Lymphocytes # (Manual) Monocytes # (Manual) Eosinophils # (Manual) PT INR POC ABG pH POC ABG pCO2 POC ABG pO2 Sodium Potassium Chloride Carbon Dioxide BUN Creatinine Glucose POC Glucose 138 H 180 H Lactic Acid Calcium Magnesium AST ALT Alkaline Phosphatase Troponin T C-Reactive Protein Total Protein Albumin LDL Cholesterol Direct HDL Cholesterol Hepatitis C Antibody Crossmatch 11/24/17 11/24/17 11/25/17 21:53 23:28 04:19 WBC RBC Hgb Hct MCV MCH MCHC RDW Plt Count Lymph % (Auto) [place] % (Auto) Eos % (Auto) Lymph # [place] # Eos # Seg Neutrophils % Seg Neuts % (Manual) Lymphocytes % (Manual) Monocytes % (Manual) Eosinophils % (Manual) Nucleated RBC % Seg Neutrophils # Seg Neutrophils # Man Lymphocytes # (Manual) Monocytes # (Manual) Eosinophils # (Manual) PT INR POC ABG pH POC ABG pCO2 POC ABG pO2 Sodium Potassium Chloride 96.3 L Carbon Dioxide BUN 28 H 31 H Creatinine 2.3 H 2.6 H Glucose 125 H 101 H POC Glucose 111 H Lactic Acid Calcium 7.5 L D 7.4 L Magnesium AST 170 H ALT 179 H Alkaline Phosphatase 175 H Troponin T C-Reactive Protein Total Protein 5.5 L Albumin 1.8 L LDL Cholesterol Direct HDL Cholesterol Hepatitis C Antibody Crossmatch 11/25/17 11/25/17 11/26/17 04:19 04:19 06:29 WBC 22.5 H RBC 3.48 L Hgb 9.1 L Hct 28.3 L MCV 81 L MCH 26 L MCHC RDW 17.4 H Plt Count Lymph % (Auto) [place] % (Auto) Eos % (Auto) Lymph # [place] # Eos # Seg Neutrophils % Seg Neuts % (Manual) Lymphocytes % (Manual) Monocytes % (Manual) Eosinophils % (Manual) Nucleated RBC % Seg Neutrophils # Seg Neutrophils # Man Lymphocytes # (Manual) Monocytes # (Manual) Eosinophils # (Manual) PT 23.6 H INR 1.96 H POC ABG pH POC ABG pCO2 POC ABG pO2 Sodium Potassium Chloride Carbon Dioxide BUN 31 H Creatinine 2.6 H Glucose 101 H POC Glucose Lactic Acid Calcium 7.5 L Magnesium AST ALT Alkaline Phosphatase Troponin T C-Reactive Protein Total Protein Albumin LDL Cholesterol Direct HDL Cholesterol Hepatitis C Antibody Crossmatch 11/26/17 11/27/17 11/27/17 06:34 04:06 04:06 WBC 11.3 H RBC 3.13 L Hgb 8.4 L Hct 25.8 L MCV 82 L MCH 27 L MCHC RDW 17.7 H Plt Count Lymph % (Auto) 7.4 L [place] % (Auto) Eos % (Auto) Lymph # 0.8 L [place] # Eos # Seg Neutrophils % 83.7 H Seg Neuts % (Manual) Lymphocytes % (Manual) Monocytes % (Manual) Eosinophils % (Manual) Nucleated RBC % Seg Neutrophils # 9.5 H Seg Neutrophils # Man Lymphocytes # (Manual) Monocytes # (Manual) Eosinophils # (Manual) PT INR POC ABG pH POC ABG pCO2 POC ABG pO2 Sodium Potassium Chloride 97.9 L Carbon Dioxide BUN 43 H 29 H Creatinine 3.5 H 2.9 H Glucose POC Glucose Lactic Acid Calcium 7.5 L 8.1 L Magnesium AST ALT Alkaline Phosphatase Troponin T C-Reactive Protein Total Protein Albumin LDL Cholesterol Direct HDL Cholesterol Hepatitis C Antibody Crossmatch 11/27/17 11/28/17 11/28/17 18:11 00:16 03:50 WBC RBC Hgb Hct MCV MCH MCHC RDW Plt Count Lymph % (Auto) [place] % (Auto) Eos % (Auto) Lymph # [place] # Eos # Seg Neutrophils % Seg Neuts % (Manual) Lymphocytes % (Manual) Monocytes % (Manual) Eosinophils % (Manual) Nucleated RBC % Seg Neutrophils # Seg Neutrophils # Man Lymphocytes # (Manual) Monocytes # (Manual) Eosinophils # (Manual) PT INR POC ABG pH POC ABG pCO2 POC ABG pO2 Sodium Potassium Chloride Carbon Dioxide BUN 39 H Creatinine 4.1 H Glucose 108 H POC Glucose 110 H 124 H Lactic Acid Calcium 7.9 L Magnesium AST ALT Alkaline Phosphatase Troponin T C-Reactive Protein Total Protein Albumin LDL Cholesterol Direct HDL Cholesterol Hepatitis C Antibody Crossmatch 11/28/17 11/28/17 11/28/17 05:03 11:36 17:42 WBC RBC Hgb Hct MCV MCH MCHC RDW Plt Count Lymph % (Auto) [place] % (Auto) Eos % (Auto) Lymph # [place] # Eos # Seg Neutrophils % Seg Neuts % (Manual) Lymphocytes % (Manual) Monocytes % (Manual) Eosinophils % (Manual) Nucleated RBC % Seg Neutrophils # Seg Neutrophils # Man Lymphocytes # (Manual) Monocytes # (Manual) Eosinophils # (Manual) PT INR POC ABG pH POC ABG pCO2 POC ABG pO2 Sodium Potassium Chloride Carbon Dioxide BUN Creatinine Glucose POC Glucose 134 H 114 H 119 H Lactic Acid Calcium Magnesium AST ALT Alkaline Phosphatase Troponin T C-Reactive Protein Total Protein Albumin LDL Cholesterol Direct HDL Cholesterol Hepatitis C Antibody Crossmatch 11/29/17 11/29/17 11/29/17 00:22 05:25 05:25 WBC 12.3 H RBC 3.34 L Hgb 8.6 L Hct 27.3 L MCV 82 L MCH 26 L MCHC RDW 18.5 H Plt Count Lymph % (Auto) 3.7 L [place] % (Auto) 7.7 H Eos % (Auto) Lymph # 0.5 L [place] # 1.0 H Eos # Seg Neutrophils % 86.5 H Seg Neuts % (Manual) Lymphocytes % (Manual) Monocytes % (Manual) Eosinophils % (Manual) Nucleated RBC % Seg Neutrophils # 10.7 H Seg Neutrophils # Man Lymphocytes # (Manual) Monocytes # (Manual) Eosinophils # (Manual) PT INR POC ABG pH POC ABG pCO2 POC ABG pO2 Sodium Potassium Chloride Carbon Dioxide BUN 29 H Creatinine 3.5 H Glucose 109 H POC Glucose 137 H Lactic Acid Calcium 7.8 L Magnesium AST ALT Alkaline Phosphatase Troponin T C-Reactive Protein Total Protein Albumin LDL Cholesterol Direct HDL Cholesterol Hepatitis C Antibody Crossmatch 11/29/17 11/30/17 11/30/17 05:26 00:26 04:17 WBC RBC Hgb Hct MCV MCH MCHC RDW Plt Count Lymph % (Auto) [place] % (Auto) Eos % (Auto) Lymph # [place] # Eos # Seg Neutrophils % Seg Neuts % (Manual) Lymphocytes % (Manual) Monocytes % (Manual) Eosinophils % (Manual) Nucleated RBC % Seg Neutrophils # Seg Neutrophils # Man Lymphocytes # (Manual) Monocytes # (Manual) Eosinophils # (Manual) PT INR POC ABG pH POC ABG pCO2 POC ABG pO2 Sodium Potassium Chloride Carbon Dioxide BUN 38 H Creatinine 4.3 H Glucose 109 H POC Glucose 129 H 152 H Lactic Acid Calcium 7.8 L Magnesium AST ALT Alkaline Phosphatase Troponin T C-Reactive Protein Total Protein Albumin LDL Cholesterol Direct HDL Cholesterol Hepatitis C Antibody Crossmatch 11/30/17 11/30/17 11/30/17 12:17 16:23 23:35 WBC RBC Hgb Hct MCV MCH MCHC RDW Plt Count Lymph % (Auto) [place] % (Auto) Eos % (Auto) Lymph # [place] # Eos # Seg Neutrophils % Seg Neuts % (Manual) Lymphocytes % (Manual) Monocytes % (Manual) Eosinophils % (Manual) Nucleated RBC % Seg Neutrophils # Seg Neutrophils # Man Lymphocytes # (Manual) Monocytes # (Manual) Eosinophils # (Manual) PT INR POC ABG pH POC ABG pCO2 POC ABG pO2 Sodium Potassium Chloride Carbon Dioxide BUN Creatinine Glucose POC Glucose 170 H 114 H 122 H Lactic Acid Calcium Magnesium AST ALT Alkaline Phosphatase Troponin T C-Reactive Protein Total Protein Albumin LDL Cholesterol Direct HDL Cholesterol Hepatitis C Antibody Crossmatch 12/01/17 12/01/17 12/01/17 04:09 04:09 12:17 WBC 14.1 H RBC 3.32 L Hgb 8.6 L Hct 27.0 L MCV 81 L MCH 26 L MCHC RDW 18.7 H Plt Count Lymph % (Auto) 5.5 L [place] % (Auto) 9.7 H Eos % (Auto) Lymph # 0.8 L [place] # 1.4 H Eos # Seg Neutrophils % 82.9 H Seg Neuts % (Manual) Lymphocytes % (Manual) Monocytes % (Manual) Eosinophils % (Manual) Nucleated RBC % Seg Neutrophils # 11.7 H Seg Neutrophils # Man Lymphocytes # (Manual) Monocytes # (Manual) Eosinophils # (Manual) PT INR POC ABG pH POC ABG pCO2 POC ABG pO2 Sodium Potassium 3.4 L Chloride Carbon Dioxide BUN 21 H Creatinine 3.0 H Glucose 108 H POC Glucose 126 H Lactic Acid Calcium 8.0 L Magnesium AST ALT Alkaline Phosphatase Troponin T C-Reactive Protein Total Protein Albumin LDL Cholesterol Direct HDL Cholesterol Hepatitis C Antibody Crossmatch 12/02/17 12/03/17 12/03/17 23:46 02:52 05:54 WBC 17.2 H RBC 3.21 L Hgb 8.5 L Hct 25.8 L MCV 80 L MCH 26 L MCHC RDW 18.4 H Plt Count 128 L Lymph % (Auto) [place] % (Auto) Eos % (Auto) Lymph # [place] # Eos # Seg Neutrophils % Seg Neuts % (Manual) Lymphocytes % (Manual) Monocytes % (Manual) Eosinophils % (Manual) Nucleated RBC % Seg Neutrophils # Seg Neutrophils # Man Lymphocytes # (Manual) Monocytes # (Manual) Eosinophils # (Manual) PT INR POC ABG pH POC ABG pCO2 POC ABG pO2 Sodium Potassium Chloride Carbon Dioxide BUN Creatinine Glucose POC Glucose 125 H 107 H Lactic Acid Calcium Magnesium AST ALT Alkaline Phosphatase Troponin T C-Reactive Protein Total Protein Albumin LDL Cholesterol Direct HDL Cholesterol Hepatitis C Antibody Crossmatch 12/03/17 12/03/17 12/04/17 12:05 Unknown 12:26 WBC RBC Hgb Hct MCV MCH MCHC RDW Plt Count Lymph % (Auto) [place] % (Auto) Eos % (Auto) Lymph # [place] # Eos # Seg Neutrophils % Seg Neuts % (Manual) Lymphocytes % (Manual) Monocytes % (Manual) Eosinophils % (Manual) Nucleated RBC % Seg Neutrophils # Seg Neutrophils # Man Lymphocytes # (Manual) Monocytes # (Manual) Eosinophils # (Manual) PT INR POC ABG pH POC ABG pCO2 POC ABG pO2 Sodium Potassium Chloride Carbon Dioxide BUN 21 H Creatinine 2.8 H Glucose 113 H POC Glucose 106 H 119 H Lactic Acid Calcium Magnesium AST ALT Alkaline Phosphatase Troponin T C-Reactive Protein Total Protein Albumin LDL Cholesterol Direct HDL Cholesterol Hepatitis C Antibody Crossmatch 12/04/17 12/05/17 12/05/17 17:57 00:52 04:05 WBC RBC 2.96 L Hgb 7.7 L Hct 24.2 L MCV 82 L MCH 26 L MCHC RDW 18.8 H Plt Count 105 L Lymph % (Auto) 10.6 L [place] % (Auto) 12.1 H Eos % (Auto) 5.2 H Lymph # 1.1 L [place] # 1.3 H Eos # 0.5 H Seg Neutrophils % 71.3 H Seg Neuts % (Manual) Lymphocytes % (Manual) Monocytes % (Manual) Eosinophils % (Manual) Nucleated RBC % Seg Neutrophils # Seg Neutrophils # Man Lymphocytes # (Manual) Monocytes # (Manual) Eosinophils # (Manual) PT INR POC ABG pH POC ABG pCO2 POC ABG pO2 Sodium Potassium Chloride Carbon Dioxide BUN Creatinine Glucose POC Glucose 140 H 117 H Lactic Acid Calcium Magnesium AST ALT Alkaline Phosphatase Troponin T C-Reactive Protein Total Protein Albumin LDL Cholesterol Direct HDL Cholesterol Hepatitis C Antibody Crossmatch 12/05/17 12/05/17 12/06/17 04:05 22:50 08:18 WBC RBC 2.80 L Hgb 7.4 L Hct 23.0 L MCV 82 L MCH 27 L MCHC RDW 19.5 H Plt Count 125 L Lymph % (Auto) [place] % (Auto) Eos % (Auto) Lymph # [place] # Eos # Seg Neutrophils % Seg Neuts % (Manual) Lymphocytes % (Manual) Monocytes % (Manual) Eosinophils % (Manual) Nucleated RBC % Seg Neutrophils # Seg Neutrophils # Man Lymphocytes # (Manual) Monocytes # (Manual) Eosinophils # (Manual) PT INR POC ABG pH POC ABG pCO2 POC ABG pO2 Sodium Potassium Chloride 107.4 H Carbon Dioxide BUN Creatinine 2.5 H Glucose POC Glucose 112 H Lactic Acid Calcium 8.3 L Magnesium AST ALT Alkaline Phosphatase Troponin T C-Reactive Protein Total Protein Albumin LDL Cholesterol Direct HDL Cholesterol Hepatitis C Antibody Crossmatch 12/06/17 12/06/17 12/06/17 08:18 12:01 23:58 WBC RBC Hgb Hct MCV MCH MCHC RDW Plt Count Lymph % (Auto) [place] % (Auto) Eos % (Auto) Lymph # [place] # Eos # Seg Neutrophils % Seg Neuts % (Manual) Lymphocytes % (Manual) Monocytes % (Manual) Eosinophils % (Manual) Nucleated RBC % Seg Neutrophils # Seg Neutrophils # Man Lymphocytes # (Manual) Monocytes # (Manual) Eosinophils # (Manual) PT INR POC ABG pH POC ABG pCO2 POC ABG pO2 Sodium Potassium Chloride 108.4 H Carbon Dioxide BUN 28 H Creatinine 3.7 H Glucose 103 H POC Glucose 106 H 108 H Lactic Acid Calcium 8.0 L Magnesium AST ALT Alkaline Phosphatase Troponin T C-Reactive Protein Total Protein Albumin LDL Cholesterol Direct HDL Cholesterol Hepatitis C Antibody Crossmatch 12/07/17 12/07/17 12/07/17 05:47 05:47 18:03 WBC RBC 2.79 L Hgb 7.3 L Hct 22.8 L MCV 82 L MCH 26 L MCHC RDW 19.1 H Plt Count 101 L Lymph % (Auto) [place] % (Auto) Eos % (Auto) Lymph # [place] # Eos # Seg Neutrophils % Seg Neuts % (Manual) 72.0 H Lymphocytes % (Manual) 13.0 L Monocytes % (Manual) Eosinophils % (Manual) 9.0 H Nucleated RBC % Seg Neutrophils # Seg Neutrophils # Man Lymphocytes # (Manual) 1.1 L Monocytes # (Manual) Eosinophils # (Manual) 0.8 H PT INR POC ABG pH POC ABG pCO2 POC ABG pO2 Sodium 146 H Potassium Chloride 109.8 H Carbon Dioxide BUN 36 H Creatinine 4.0 H Glucose POC Glucose 143 H Lactic Acid Calcium 8.0 L Magnesium AST ALT Alkaline Phosphatase Troponin T C-Reactive Protein Total Protein Albumin LDL Cholesterol Direct HDL Cholesterol Hepatitis C Antibody Crossmatch 12/07/17 12/08/17 12/08/17 23:33 05:10 05:10 WBC RBC 2.91 L Hgb 7.5 L Hct 24.4 L MCV MCH 26 L MCHC 31 L RDW 19.7 H Plt Count 109 L Lymph % (Auto) [place] % (Auto) Eos % (Auto) Lymph # [place] # Eos # Seg Neutrophils % Seg Neuts % (Manual) Lymphocytes % (Manual) 11.0 L Monocytes % (Manual) Eosinophils % (Manual) 12.0 H Nucleated RBC % Seg Neutrophils # Seg Neutrophils # Man Lymphocytes # (Manual) 0.7 L Monocytes # (Manual) Eosinophils # (Manual) 0.7 H PT INR POC ABG pH POC ABG pCO2 POC ABG pO2 Sodium 147 H Potassium Chloride 110.4 H Carbon Dioxide BUN Creatinine 2.8 H Glucose POC Glucose 107 H Lactic Acid Calcium 7.8 L Magnesium AST ALT Alkaline Phosphatase Troponin T C-Reactive Protein Total Protein Albumin LDL Cholesterol Direct HDL Cholesterol Hepatitis C Antibody Crossmatch 12/09/17 12/09/17 12/09/17 04:18 04:18 12:16 WBC RBC Hgb 7.2 L Hct 23.2 L MCV MCH MCHC RDW Plt Count Lymph % (Auto) [place] % (Auto) Eos % (Auto) Lymph # [place] # Eos # Seg Neutrophils % Seg Neuts % (Manual) Lymphocytes % (Manual) Monocytes % (Manual) Eosinophils % (Manual) Nucleated RBC % Seg Neutrophils # Seg Neutrophils # Man Lymphocytes # (Manual) Monocytes # (Manual) Eosinophils # (Manual) PT INR POC ABG pH POC ABG pCO2 POC ABG pO2 Sodium 150 H Potassium Chloride 114.5 H Carbon Dioxide BUN 25 H Creatinine 3.3 H Glucose POC Glucose 142 H Lactic Acid Calcium 7.7 L Magnesium AST ALT Alkaline Phosphatase Troponin T C-Reactive Protein Total Protein Albumin LDL Cholesterol Direct HDL Cholesterol Hepatitis C Antibody Crossmatch 12/10/17 12/10/17 05:14 05:14 WBC RBC 2.81 L Hgb 7.4 L Hct 23.9 L MCV MCH 26 L MCHC 31 L RDW 19.1 H Plt Count 128 L Lymph % (Auto) [place] % (Auto) Eos % (Auto) Lymph # [place] # Eos # Seg Neutrophils % Seg Neuts % (Manual) 78.0 H Lymphocytes % (Manual) 8.0 L Monocytes % (Manual) Eosinophils % (Manual) 5.0 H Nucleated RBC % Seg Neutrophils # Seg Neutrophils # Man Lymphocytes # (Manual) 0.6 L Monocytes # (Manual) Eosinophils # (Manual) PT INR POC ABG pH POC ABG pCO2 POC ABG pO2 Sodium Potassium Chloride Carbon Dioxide BUN Creatinine 2.2 H Glucose POC Glucose Lactic Acid Calcium 7.8 L Magnesium AST ALT Alkaline Phosphatase Troponin T C-Reactive Protein Total Protein Albumin LDL Cholesterol Direct HDL Cholesterol Hepatitis C Antibody Crossmatch
[2017-12-11] MEDS: DIFLUCAN 200 MG/100 ML BAG IV SCH (11:14)
[2017-12-11] MEDS: SODIUM CHLORIDE FLUSH SYRINGE 10 ML IV SCH ×2 (11:17→21:56)
--- NOTE | 2017-12-11 11:19 | Progress Note ---
Subjective Principal diagnosis: Acute hypoxic respiratory failure, s/p Trach Interval history: Patient was seen today for follow-up on multiple renal related issues Doing about the same, Status post tracheotomy Electrolytes appear to be better, Remains dialysis dependent Vitals labs intake output medications were reviewed Social history: Reviewed Allergies: Reviewed Family history: Reviewed Physical examination HEENT: Oral mucosa moist no pallor or icterus Neck: Supple no JVD Chest: Clear to auscultation anteriorly CVS: Regular rate and rhythm S1 and S2 heard Abdomen: Soft nontender no suprapubic masses no organomegaly appreciable Extremity: Dry skin less than 1+ peripheral edema Musculoskeletal: No joint effusion noted in knees and ankle Neurological: Alert awake Dermatology: No petechial rashes Psychiatry: No evidence of any agitation and aggression noted Assessment and plan Acute kidney injury: Patient remains dialysis dependent Thursdayted Thursday to continue as tolerated ultrafiltration as tolerated Acute kidney injury: Patient is currently dialysis dependent on Thursday and Thursday blood pressure is currently much better Continue to monitor for any functional recovery of renal function, renal prognosis appears to be poor at this time Pending relocation of dialysis catheter to the neck area Diagnosed with peritonitis, dislodged PEG tube, has had peritonitis acute on chronic respiratory failure with hypoxemia possible aspiration pneumonia status post tracheotomy followed by pulmonary medicine Aspiration ammonia with mucus plugging treated with antibiotic followed by pulmonary Encephalopathy appears to be multifactorial Overall prognosis guarded to poor Continue to monitor hemoglob We'll continue to follow and make recommendation from renal standpoint , Objective - Vital Signs Vital signs: Vital Signs - 12hr 12/10/17 12/11/17 12/11/17 23:40 00:00 01:00 Temperature 98.5 F Pulse Rate 89 98 H Respiratory 26 H 30 H Rate Blood Pressure 167/101 173/99 O2 Sat by Pulse 100 100 Oximetry O2 Sat by Pulse Oximetry [ Assessment] 12/11/17 12/11/17 12/11/17 02:00 03:00 04:00 Temperature 99.5 F Pulse Rate 92 H 148 H 107 H Respiratory 26 H 58 H 18 Rate Blood Pressure 172/101 159/89 138/79 O2 Sat by Pulse 100 100 99 Oximetry O2 Sat by Pulse Oximetry [ Assessment] 12/11/17 12/11/17 12/11/17 04:07 05:00 06:00 Temperature Pulse Rate 115 H 98 H Respiratory 19 29 H Rate Blood Pressure 110/73 112/66 O2 Sat by Pulse 98 99 Oximetry O2 Sat by Pulse 99 Oximetry [ Assessment] 12/11/17 12/11/17 12/11/17 08:00 09:45 09:52 Temperature 97.4 F L 97.8 F Pulse Rate 102 H Respiratory 26 H Rate Blood Pressure 128/81 O2 Sat by Pulse Oximetry O2 Sat by Pulse 98 Oximetry [ Assessment] 12/11/17 12/11/17 12/11/17 09:54 10:00 10:15 Temperature Pulse Rate 101 H 90 Respiratory Rate Blood Pressure 135/90 135/90 O2 Sat by Pulse 100 Oximetry O2 Sat by Pulse Oximetry [ Assessment] 12/11/17 10:30 Temperature Pulse Rate 112 H Respiratory Rate Blood Pressure 107/67 O2 Sat by Pulse Oximetry O2 Sat by Pulse Oximetry [ Assessment] - Lab 12/10/17 05:14 12/11/17 15:26 Most recent lab results Calcium 7.8 mg/dL (8.4-10.2) L 12/10/17 05:14 Magnesium 2.00 mg/dL (1.7-2.3) 11/24/17 21:53
[2017-12-11] MEDS ORDERED: NACL 0.9% 1000 ML 2,000 ML ONE (11:33)
[2017-12-11] MEDS: MERREM 1,000 MG in NACL 0.9% 100 ML IV SCH (14:45)
[2017-12-11] MEDS: LOPRESSOR PO SCH ×2 (14:46→21:52)
[2017-12-11] MEDS: PREVACID SOLUTAB FEEDTUBE SCH ×2 (14:47→21:53)
[2017-12-11 16:42] LABS: Calcium 7.6 mg/dL (8.4-10.2)
[2017-12-11] MEDS ORDERED: HEPARIN/NS 5000 UNIT/500ML(CATH LAB) 500 ML IR ONE (17:19)
[2017-12-11] MEDS ORDERED: XYLOCAINE 1%/ EPI 1:100,000 INFILTRATI ONE (17:20)
[2017-12-11] MEDS ORDERED: NACL 0.9% 250ML 250 ML ONE (17:21)
[2017-12-11] MEDS: HEPARIN 10,000 UNITS/10 ML ONE ×2 (18:02→18:03)
--- NOTE | 2017-12-11 18:15 | Operative Report ---
Operative Report Operative Report: Exam:: Ultrasound and fluoroscopic guided placement of vas cath, removal of femoral Vas-Cath Clinical indication: Patient with a history of renal failure requiring central venous access Date: 12/11/2017 Procedure: Following an explanation of the risks, benefits and alternatives; written informed consent was obtained from the patient's next of kin. Patient was brought to the cardiac catheterization suite and placed in supine position on the examination table. Initial ultrasound evaluation of his right neck demonstrated a patent right internal jugular vein. The patient's right neck was prepped and draped in the usual sterile fashion. 1% lidocaine was used for anesthesia. Under ultrasound guidance, the right internal jugular vein was cannulated with a 7 cm 18-gauge needle. A 0.035 guidewire was advanced into the IVC under fluoroscopy to document intravenous positioning. The needle was removed and following serial dilation, a 20 cm dialysis catheter was advanced over the guidewire under fluoroscopy. The tip was positioned in the proximal right atrium. All 3 ports flushed and aspirated easily and were then locked with appropriate volumes of heparin. The catheter was securely fasten the skin surface using 2-0 Ethilon suture and a sterile dressing applied. The patient's left common femoral Vas-Cath was then removed. A sterile dressing was then applied. The patient tolerated the procedure well. There were no immediate post procedure complications. No sedation was utilized. Continuous cardiopulmonary monitoring was utilized. Impression: Ultrasound and fluoroscopic guided placement of right internal jugular vein Vas-Cath, removal of left common femoral Vas-Cath
[2017-12-11] MEDS ORDERED: K-DUR PO ONE (18:27)
--- NOTE | 2017-12-11 18:28 | Progress Note ---
Assessment and Plan Peritonitis and possible intra-abdominal abscess - likely from dislodged peg tube - removed PEG tube on 11/22 - peritoneal Fluid positive for Enterobacter, Heather (non albicans) - Antibiotic managed by ID - s/p multiple intraabdominal drainages placed by IR and GS. also had abdominal washout by GS - last drainage was placed on 12/06 by IR - plan to remove at least two drainage on Thursday Acute on chronic respiratory failure with hypoxia - likely due to aspiration and PNA - Status post tracheostomy, currently on T-piece - Pulmonology following Severe sepsis with shock likely secondary to aspiration pneumonia -Off IV pressors -Blood and sputum cultures negative Aspiration pneumonia with mucus plugging -treated with zosyn Acute kidney injury secondary to ATN -on Intermittent HD started on 11/23/17 with vascath -Creatinine level improved -Nephrology following Anemia of acute loss secondary to gastric ulcer and gastritis -Status post EGD on 11/18/2017 -Status post blood transfusion -H/H stable, will monitor Acute encephalopathy, likely multifactorial -Will continue to monitor clinically -Prognosis is poor Hypernatremia -Resolved Hypokalemia -We cont to monitor level and replete as needed Hypomagnesemia -Resolved status post repletion Oropharyngeal dysphagia -Status post PEG tube placement on 11/06, now removed -On tube feeding with dobhoff History of recent CVA -Not on aspirin due to recent bleed RT ICA stenosis -s/p recent endarterectomy Disposition: Patient overall prognosis remains poor. Continue management Brief History 67yo M with history CVA, a PEG tube placed by GI on 11/06 presented (11/12) from rehab for respiratory failure, sepsis, hypotension and multilober PNA. Recent work-up for hypotension showed a dislodged PEG tube on CT scan with extraluminal PO contrast that was limited to the upper abdomen and left gutter. Pt had an EGD on 11/18 that did not show the PEG button or an obvious hole in the stomach. There was no free air noted on CXR's. Pt had IR guided drainage placed in the 3 different locations of abdomen. He is now s/p trach by ENT. Recent Ct abdoemn/pelvis on 12/04/17 showed persistent abdominal collection of abscess/fluid and s/p repeat drainage 12/06/17 Hospitalist Physical General appearance: Present: no acute distress - EENT Eyes: Present: PERRL ENT: clear oral mucosa - Neck Neck: Present: supple, other (status post tracheostomy on T-piece) - Respiratory Respiratory effort: normal Respiratory: bilateral: CTA - Cardiovascular Rhythm: other (tachycardia) Heart Sounds: Present: S1 & S2 - Extremities Extremity abnormal: edema (in BLE) - Abdominal General gastrointestinal: non-distended, distended, normal bowel sounds, other ( firm on palpation), total [address] on the left side of - Neurologic Neurologic: other (patient is awake but unable to follow commands) Subjective Date of service: 12/11/17 Principal diagnosis: Acute hypoxic respiratory failure, s/p Trach Interval history: Pt seen and examined, nonverbal No acute event reported by RN discussed plan of care with RN at bedside drainage significantly reduced Improving clinically Objective - Constitutional Vitals: Vital Signs - 12hr 12/11/17 12/11/17 12/11/17 07:00 08:00 09:00 Temperature 97.4 F L Pulse Rate 96 H 94 H 89 Respiratory 32 H 27 H 28 H Rate Blood Pressure 111/72 114/69 110/71 O2 Sat by Pulse 100 100 99 Oximetry O2 Sat by Pulse Oximetry [ Assessment] O2 Sat by Pulse Oximetry [ Bilateral Throughout] 12/11/17 12/11/17 12/11/17 09:45 09:52 09:54 Temperature 97.8 F Pulse Rate 102 H Respiratory 26 H Rate Blood Pressure 128/81 O2 Sat by Pulse 100 Oximetry O2 Sat by Pulse 98 Oximetry [ Assessment] O2 Sat by Pulse Oximetry [ Bilateral Throughout] 12/11/17 12/11/17 12/11/17 10:00 10:15 10:30 Temperature Pulse Rate 117 H 90 112 H Respiratory 27 H Rate Blood Pressure 135/90 135/90 107/67 O2 Sat by Pulse 99 Oximetry O2 Sat by Pulse Oximetry [ Assessment] O2 Sat by Pulse Oximetry [ Bilateral Throughout] 12/11/17 12/11/17 12/11/17 10:45 11:00 11:15 Temperature Pulse Rate 96 H 95 H 107 H Respiratory 25 H Rate Blood Pressure 98/67 115/72 119/75 O2 Sat by Pulse 98 Oximetry O2 Sat by Pulse Oximetry [ Assessment] O2 Sat by Pulse Oximetry [ Bilateral Throughout] 12/11/17 12/11/17 12/11/17 11:30 11:45 12:00 Temperature Pulse Rate 87 119 H 116 H Respiratory 24 Rate Blood Pressure 129/81 133/89 122/85 O2 Sat by Pulse 100 Oximetry O2 Sat by Pulse Oximetry [ Assessment] O2 Sat by Pulse Oximetry [ Bilateral Throughout] 12/11/17 12/11/17 12/11/17 12:15 12:30 12:45 Temperature Pulse Rate 89 95 H 87 Respiratory Rate Blood Pressure 133/91 140/89 123/83 O2 Sat by Pulse Oximetry O2 Sat by Pulse Oximetry [ Assessment] O2 Sat by Pulse Oximetry [ Bilateral Throughout] 12/11/17 12/11/17 12/11/17 13:00 13:15 13:30 Temperature Pulse Rate 86 89 87 Respiratory 25 H Rate Blood Pressure 122/80 130/88 123/82 O2 Sat by Pulse 100 Oximetry O2 Sat by Pulse Oximetry [ Assessment] O2 Sat by Pulse Oximetry [ Bilateral Throughout] 12/11/17 12/11/17 12/11/17 13:45 13:54 14:00 Temperature 97.2 F L Pulse Rate 95 H 100 H 104 H Respiratory 28 H 22 Rate Blood Pressure 128/78 138/78 128/82 O2 Sat by Pulse 100 Oximetry O2 Sat by Pulse Oximetry [ Assessment] O2 Sat by Pulse 100 Oximetry [ Bilateral Throughout] 12/11/17 14:46 Temperature Pulse Rate 93 H Respiratory Rate Blood Pressure 124/83 O2 Sat by Pulse Oximetry O2 Sat by Pulse Oximetry [ Assessment] O2 Sat by Pulse Oximetry [ Bilateral Throughout] - Labs CBC & Chem 7: 12/12/17 05:41 12/12/17 05:41 Labs: Abnormal lab results 12/11/17 12/11/17 Range/Units 12:05 15:26 Potassium 3.3 L (3.6-5.0) mmol/L Creatinine 1.6 H (0.8-1.5) mg/dL POC Glucose 127 H (70-105) Calcium 7.6 L (8.4-10.2) mg/dL
[2017-12-12 06:07] LABS: Hematocrit 25.7 % (35.5-45.6); Hemoglobin 8.1 gm/dl (11.8-15.2); Mean Corpuscular HGB Conc 31 % (32-34); Mean Corpuscular Volume 81 fl (84-94); Platelet Count 141 K/mm3 (140-440); Red Blood Count 3.17 M/mm3 (3.65-5.03); Red Cell Distribution Width 19.2 % (13.2-15.2)
[2017-12-12 06:12] LABS: Mean Corpuscular Hemoglobin 25 pg (28-32)
[2017-12-12 06:26] LABS: Calcium 7.5 mg/dL (8.4-10.2)
[2017-12-12 06:58] LABS: Band Neutrophils # (Manual) 0.6 K/mm3; Basophils % (Manual) 0 % (0.0-1.8); Total Cells Counted 100
[2017-12-12 06:59] LABS: Anisocytosis 1+; Hypochromasia Few; Stomatocytes 1+
[2017-12-12 07:00] LABS: Platelet Estimate Consistent w Auto
--- NOTE | 2017-12-12 07:48 | Progress Note ---
Assessment and Plan Assessment * Acute kidney injury secondary to ATN --Intermittent HD started on 11/23/17 * Sepsis secondary to peritonitis/PEG malpositioning --RUQ/LUQ drains: Enterobacter, Heather (non albicans) * Aspiration pneumonitis related to above * Anemia * Acute CVA * Carotid artery disease s/p CEA * Encephalopathy Plan: * No evidence of renal recovery * Continue HD MWF. UF as tolerated * Abx per ID * General surgery/IR recommendations reviewed * Strict I/O * Avoid potential nephrptoxins * Dose medications for renal function * Replete lytes prn * Avoid nephrotoxins Subjective Date of service: 12/12/17 Principal diagnosis: Acute hypoxic respiratory failure, s/p Trach Interval history: No acute events overnight Objective - Vital Signs Vital signs: Vital Signs - 12hr 12/11/17 12/11/17 12/11/17 20:00 20:30 21:52 Temperature Pulse Rate 86 Respiratory 22 Rate Blood Pressure 141/78 O2 Sat by Pulse 100 100 Oximetry O2 Sat by Pulse Oximetry [ Assessment] 12/11/17 12/11/17 12/12/17 22:00 22:56 00:00 Temperature 98.6 F Pulse Rate 91 H Respiratory 20 Rate Blood Pressure O2 Sat by Pulse 100 Oximetry O2 Sat by Pulse 100 Oximetry [ Assessment] 12/12/17 12/12/17 12/12/17 03:35 03:40 04:00 Temperature 98.6 F 98.7 F Pulse Rate Respiratory 22 20 Rate Blood Pressure 129/75 O2 Sat by Pulse 100 Oximetry O2 Sat by Pulse Oximetry [ Assessment] - General Appearance General appearance: well-developed, well-nourished Neck: other (trach) Respiratory: Present: Decreased Breath Sounds Cardiology: regular, S1S2 Gastrointestinal: hypoactive bowel sounds, other (+ODALYS drains) Integumentary: no rash Musculoskeletal: other (1+ pedal edema) - Lab 12/12/17 05:41 12/12/17 05:41 Most recent lab results Calcium 7.5 mg/dL (8.4-10.2) L 12/12/17 05:41 Phosphorus 2.60 mg/dL (2.5-4.5) 12/11/17 15:26 Magnesium 2.00 mg/dL (1.7-2.3) 11/24/17 21:53
[2017-12-12] MEDS: LOPRESSOR PO SCH ×3 (08:03→21:38)
--- NOTE | 2017-12-12 09:19 | Progress Note ---
Assessment and Plan - Patient Problems (1) Fever Current Visit: Yes Status: Acute (2) Hypotension Current Visit: Yes Status: Acute (3) Metabolic acidosis Current Visit: Yes Status: Acute (4) Acute renal failure (ARF) Current Visit: Yes Status: Acute (5) Acute respiratory failure with hypoxemia Current Visit: Yes Status: Acute (6) Pneumonia Current Visit: Yes Status: Acute Qualifiers: Pneumonia type: due to unspecified organism Laterality: right Lung location: middle lobe of lung Qualified Code(s): J18.1 - Lobar pneumonia, unspecified organism (7) Septic shock Current Visit: Yes Status: Acute (8) Ventilator dependence Current Visit: Yes Status: Acute (9) Anemia Current Visit: Yes Status: Acute (10) Shock circulatory Current Visit: Yes Status: Acute (11) Lactic acid acidosis Current Visit: Yes Status: Acute Subjective Principal diagnosis: Acute hypoxic respiratory failure, s/p Trach Interval history: tpiece in place opens eyes to verbal stimuli Objective Vital Signs - 12hr 12/11/17 12/11/17 12/11/17 21:52 22:00 22:56 Temperature 98.6 F Pulse Rate 86 91 H Respiratory 23 Rate Blood Pressure 141/78 132/83 O2 Sat by Pulse 100 Oximetry O2 Sat by Pulse Oximetry [ Assessment] 12/11/17 12/12/17 12/12/17 23:00 00:00 01:00 Temperature Pulse Rate 80 92 H 90 Respiratory 28 H 26 H 19 Rate Blood Pressure 138/79 133/86 140/80 O2 Sat by Pulse 100 100 100 Oximetry O2 Sat by Pulse 100 Oximetry [ Assessment] 12/12/17 12/12/17 12/12/17 02:00 03:00 03:35 Temperature 98.6 F Pulse Rate 90 88 Respiratory 26 H 29 H 22 Rate Blood Pressure 129/75 140/81 129/75 O2 Sat by Pulse 100 100 Oximetry O2 Sat by Pulse Oximetry [ Assessment] 12/12/17 12/12/17 12/12/17 03:40 04:00 05:00 Temperature 98.7 F Pulse Rate 101 H 92 H Respiratory 21 19 Rate Blood Pressure 138/79 134/86 O2 Sat by Pulse 97 94 Oximetry O2 Sat by Pulse Oximetry [ Assessment] 12/12/17 12/12/17 12/12/17 06:00 07:00 08:00 Temperature Pulse Rate 78 96 H 97 H Respiratory 21 19 32 H Rate Blood Pressure 128/76 149/95 143/89 O2 Sat by Pulse 98 100 100 Oximetry O2 Sat by Pulse Oximetry [ Assessment] Constitutional: no acute distress, alert Eyes: non-icteric ENT: oropharynx moist Neck: supple (trach in position), no JVD Effort: normal Ascultation: Bilateral: rhonchi (bilateral,post tussive), other (coarse BS bilaterally) Cardiovascular: regular rate and rhythm Gastrointestinal: normoactive bowel sounds, soft, non-tender, other (drainages in place) Integumentary: normal Extremities: no cyanosis, pink and warm, anasarca Neurologic: other (L hemiparesis,awake, response to my voice) Psychiatric: other (unable to assess) CBC and BMP: 12/12/17 05:41 12/12/17 05:41 ABG, PT/INR, D-dimer: ABG POC ABG pH 7.505 (7.35-7.45) H 11/23/17 04:56 POC ABG pCO2 26.3 (35-45) L 11/23/17 04:56 POC ABG pO2 100 (80-105) 11/23/17 04:56 POC ABG HCO3 20.8 11/23/17 04:56 POC ABG Total CO2 22 11/23/17 04:56 POC ABG O2 Sat 98 11/23/17 04:56 PT/INR, D-dimer PT 23.6 Sec. (12.2-14.9) H 11/26/17 06:29 INR 1.96 (0.87-1.13) H 11/26/17 06:29 Abnormal lab findings: Abnormal Labs 11/11/17 11/11/17 11/11/17 23:18 23:20 23:20 WBC RBC Hgb 10.4 L Hct 32.6 L D MCV MCH 27 L MCHC RDW 17.4 H Plt Count 105 L Lymph % (Auto) [place] % (Auto) Eos % (Auto) Lymph # [place] # Eos # Seg Neutrophils % Seg Neuts % (Manual) Lymphocytes % (Manual) 8.0 L Monocytes % (Manual) Eosinophils % (Manual) Nucleated RBC % 1.0 H Seg Neutrophils # Seg Neutrophils # Man Lymphocytes # (Manual) 0.7 L Monocytes # (Manual) Eosinophils # (Manual) PT INR POC ABG pH 7.550 H POC ABG pCO2 31.6 L POC ABG pO2 Sodium 146 H Potassium Chloride Carbon Dioxide BUN 26 H Creatinine 1.7 H D Glucose 133 H POC Glucose Lactic Acid Calcium Magnesium AST ALT Alkaline Phosphatase Troponin T 0.117 H* C-Reactive Protein Total Protein Albumin 2.5 L LDL Cholesterol Direct 42 L HDL Cholesterol 24 L Hepatitis C Antibody Crossmatch 11/11/17 11/12/17 11/12/17 23:20 00:23 00:23 WBC RBC Hgb Hct MCV MCH MCHC RDW Plt Count Lymph % (Auto) [place] % (Auto) Eos % (Auto) Lymph # [place] # Eos # Seg Neutrophils % Seg Neuts % (Manual) Lymphocytes % (Manual) Monocytes % (Manual) Eosinophils % (Manual) Nucleated RBC % Seg Neutrophils # Seg Neutrophils # Man Lymphocytes # (Manual) Monocytes # (Manual) Eosinophils # (Manual) PT 16.7 H INR 1.28 H POC ABG pH POC ABG pCO2 POC ABG pO2 Sodium Potassium Chloride Carbon Dioxide BUN Creatinine Glucose POC Glucose Lactic Acid 3.20 H* Calcium Magnesium AST ALT Alkaline Phosphatase Troponin T C-Reactive Protein 25.70 H Total Protein Albumin LDL Cholesterol Direct HDL Cholesterol Hepatitis C Antibody Crossmatch 11/12/17 11/12/17 11/12/17 00:46 01:27 01:27 WBC RBC Hgb Hct MCV MCH MCHC RDW Plt Count Lymph % (Auto) [place] % (Auto) Eos % (Auto) Lymph # [place] # Eos # Seg Neutrophils % Seg Neuts % (Manual) Lymphocytes % (Manual) Monocytes % (Manual) Eosinophils % (Manual) Nucleated RBC % Seg Neutrophils # Seg Neutrophils # Man Lymphocytes # (Manual) Monocytes # (Manual) Eosinophils # (Manual) PT INR POC ABG pH 7.495 H POC ABG pCO2 32.0 L POC ABG pO2 64 L Sodium Potassium Chloride Carbon Dioxide BUN Creatinine Glucose POC Glucose Lactic Acid 3.70 H* Calcium Magnesium AST ALT Alkaline Phosphatase Troponin T 0.096 H C-Reactive Protein Total Protein Albumin LDL Cholesterol Direct HDL Cholesterol Hepatitis C Antibody Crossmatch 11/12/17 11/12/17 11/12/17 03:21 04:50 06:27 WBC RBC Hgb Hct MCV MCH MCHC RDW Plt Count Lymph % (Auto) [place] % (Auto) Eos % (Auto) Lymph # [place] # Eos # Seg Neutrophils % Seg Neuts % (Manual) Lymphocytes % (Manual) Monocytes % (Manual) Eosinophils % (Manual) Nucleated RBC % Seg Neutrophils # Seg Neutrophils # Man Lymphocytes # (Manual) Monocytes # (Manual) Eosinophils # (Manual) PT INR POC ABG pH POC ABG pCO2 POC ABG pO2 109 H Sodium Potassium Chloride Carbon Dioxide BUN Creatinine Glucose POC Glucose Lactic Acid 3.80 H* 2.20 H* Calcium Magnesium AST ALT Alkaline Phosphatase Troponin T C-Reactive Protein Total Protein Albumin LDL Cholesterol Direct HDL Cholesterol Hepatitis C Antibody Crossmatch 11/12/17 11/12/17 11/12/17 09:24 09:24 09:24 WBC RBC Hgb 10.4 L Hct 33.4 L MCV MCH MCHC RDW Plt Count Lymph % (Auto) [place] % (Auto) Eos % (Auto) Lymph # [place] # Eos # Seg Neutrophils % Seg Neuts % (Manual) Lymphocytes % (Manual) Monocytes % (Manual) Eosinophils % (Manual) Nucleated RBC % Seg Neutrophils # Seg Neutrophils # Man Lymphocytes # (Manual) Monocytes # (Manual) Eosinophils # (Manual) PT INR POC ABG pH POC ABG pCO2 POC ABG pO2 Sodium Potassium Chloride Carbon Dioxide BUN Creatinine Glucose POC Glucose Lactic Acid 2.90 H* Calcium Magnesium AST ALT Alkaline Phosphatase Troponin T 0.091 H C-Reactive Protein Total Protein Albumin LDL Cholesterol Direct HDL Cholesterol Hepatitis C Antibody Crossmatch 11/12/17 11/12/17 11/12/17 12:56 20:03 Unknown WBC RBC Hgb Hct MCV MCH MCHC RDW Plt Count Lymph % (Auto) [place] % (Auto) Eos % (Auto) Lymph # [place] # Eos # Seg Neutrophils % Seg Neuts % (Manual) Lymphocytes % (Manual) Monocytes % (Manual) Eosinophils % (Manual) Nucleated RBC % Seg Neutrophils # Seg Neutrophils # Man Lymphocytes # (Manual) Monocytes # (Manual) Eosinophils # (Manual) PT INR POC ABG pH POC ABG pCO2 POC ABG pO2 Sodium Potassium Chloride Carbon Dioxide BUN Creatinine Glucose POC Glucose Lactic Acid 3.60 H* Calcium Magnesium AST ALT Alkaline Phosphatase Troponin T 0.102 H* 0.156 H* D C-Reactive Protein Total Protein Albumin LDL Cholesterol Direct HDL Cholesterol Hepatitis C Antibody Crossmatch 11/12/17 11/13/17 11/13/17 Unknown 04:50 04:50 WBC 12.2 H RBC 3.51 L Hgb 9.3 L Hct 30.1 L MCV MCH 26 L MCHC 31 L RDW 18.0 H Plt Count 128 L Lymph % (Auto) 8.6 L [place] % (Auto) 11.1 H Eos % (Auto) Lymph # 1.1 L [place] # 1.4 H Eos # Seg Neutrophils % 80.1 H Seg Neuts % (Manual) Lymphocytes % (Manual) Monocytes % (Manual) Eosinophils % (Manual) Nucleated RBC % Seg Neutrophils # 9.8 H Seg Neutrophils # Man Lymphocytes # (Manual) Monocytes # (Manual) Eosinophils # (Manual) PT INR POC ABG pH POC ABG pCO2 POC ABG pO2 Sodium 149 H Potassium 5.1 H Chloride 114.4 H Carbon Dioxide 18 L BUN 52 H Creatinine 3.3 H D Glucose 129 H POC Glucose Lactic Acid Calcium 7.9 L Magnesium AST ALT Alkaline Phosphatase Troponin T 0.098 H C-Reactive Protein Total Protein Albumin LDL Cholesterol Direct HDL Cholesterol Hepatitis C Antibody Crossmatch 11/13/17 11/13/17 11/14/17 04:51 09:34 04:21 WBC RBC Hgb Hct MCV MCH MCHC RDW Plt Count Lymph % (Auto) [place] % (Auto) Eos % (Auto) Lymph # [place] # Eos # Seg Neutrophils % Seg Neuts % (Manual) Lymphocytes % (Manual) Monocytes % (Manual) Eosinophils % (Manual) Nucleated RBC % Seg Neutrophils # Seg Neutrophils # Man Lymphocytes # (Manual) Monocytes # (Manual) Eosinophils # (Manual) PT INR POC ABG pH POC ABG pCO2 30.1 L 29.8 L POC ABG pO2 135 H Sodium Potassium Chloride Carbon Dioxide BUN Creatinine Glucose POC Glucose Lactic Acid 2.10 H* Calcium Magnesium AST ALT Alkaline Phosphatase Troponin T C-Reactive Protein Total Protein Albumin LDL Cholesterol Direct HDL Cholesterol Hepatitis C Antibody Crossmatch 11/15/17 11/15/17 11/16/17 04:52 15:50 05:17 WBC RBC Hgb Hct MCV MCH MCHC RDW Plt Count Lymph % (Auto) [place] % (Auto) Eos % (Auto) Lymph # [place] # Eos # Seg Neutrophils % Seg Neuts % (Manual) Lymphocytes % (Manual) Monocytes % (Manual) Eosinophils % (Manual) Nucleated RBC % Seg Neutrophils # Seg Neutrophils # Man Lymphocytes # (Manual) Monocytes # (Manual) Eosinophils # (Manual) PT INR POC ABG pH POC ABG pCO2 29.5 L 31.5 L POC ABG pO2 115 H 122 H Sodium 154 H Potassium Chloride 117.9 H Carbon Dioxide 19 L BUN 87 H Creatinine 4.1 H Glucose POC Glucose Lactic Acid Calcium 8.1 L Magnesium AST ALT Alkaline Phosphatase Troponin T C-Reactive Protein Total Protein Albumin LDL Cholesterol Direct HDL Cholesterol Hepatitis C Antibody Crossmatch 11/16/17 11/17/17 11/17/17 16:37 04:07 10:00 WBC 14.7 H RBC 3.23 L Hgb 8.3 L Hct 28.1 L MCV MCH 26 L MCHC 30 L RDW 18.8 H Plt Count Lymph % (Auto) [place] % (Auto) Eos % (Auto) Lymph # [place] # Eos # Seg Neutrophils % Seg Neuts % (Manual) 75 H Lymphocytes % (Manual) 8.0 L Monocytes % (Manual) Eosinophils % (Manual) Nucleated RBC % 1.0 H Seg Neutrophils # Seg Neutrophils # Man 11.0 H Lymphocytes # (Manual) Monocytes # (Manual) 0.9 H Eosinophils # (Manual) PT INR POC ABG pH POC ABG pCO2 POC ABG pO2 Sodium 153 H 155 H Potassium Chloride 117.3 H 119.4 H Carbon Dioxide 19 L 20 L BUN 90 H 89 H Creatinine 3.9 H 3.6 H Glucose 111 H 115 H POC Glucose Lactic Acid Calcium 8.1 L 8.0 L Magnesium AST ALT Alkaline Phosphatase Troponin T C-Reactive Protein Total Protein Albumin LDL Cholesterol Direct HDL Cholesterol Hepatitis C Antibody Crossmatch 11/18/17 11/18/17 11/18/17 04:34 04:34 04:34 WBC 15.5 H RBC 3.13 L Hgb 8.1 L Hct 26.3 L MCV MCH 26 L MCHC 31 L RDW 18.6 H Plt Count Lymph % (Auto) [place] % (Auto) Eos % (Auto) Lymph # [place] # Eos # Seg Neutrophils % Seg Neuts % (Manual) 81.0 H Lymphocytes % (Manual) 7.0 L Monocytes % (Manual) Eosinophils % (Manual) Nucleated RBC % 1.0 H Seg Neutrophils # Seg Neutrophils # Man 12.6 H Lymphocytes # (Manual) 1.1 L Monocytes # (Manual) Eosinophils # (Manual) PT 16.7 H INR 1.30 H POC ABG pH POC ABG pCO2 POC ABG pO2 Sodium 155 H Potassium 3.2 L Chloride 121.0 H Carbon Dioxide 20 L BUN 74 H Creatinine 2.9 H Glucose 126 H POC Glucose Lactic Acid Calcium 7.9 L Magnesium AST ALT Alkaline Phosphatase Troponin T C-Reactive Protein Total Protein Albumin LDL Cholesterol Direct HDL Cholesterol Hepatitis C Antibody Crossmatch 11/19/17 11/19/17 11/20/17 04:44 04:44 00:38 WBC 19.0 H 22.2 H RBC 3.20 L 3.17 L Hgb 8.4 L 7.9 L Hct 27.9 L 26.4 L MCV 83 L MCH 26 L 25 L MCHC 30 L 30 L RDW 19.1 H 18.9 H Plt Count Lymph % (Auto) [place] % (Auto) Eos % (Auto) Lymph # [place] # Eos # Seg Neutrophils % Seg Neuts % (Manual) 83.0 H Lymphocytes % (Manual) 3.0 L Monocytes % (Manual) 9.0 H Eosinophils % (Manual) Nucleated RBC % Seg Neutrophils # Seg Neutrophils # Man 18.4 H Lymphocytes # (Manual) 0.7 L Monocytes # (Manual) 2.0 H Eosinophils # (Manual) PT INR POC ABG pH POC ABG pCO2 POC ABG pO2 Sodium 152 H Potassium Chloride 117.1 H Carbon Dioxide 17 L BUN 66 H Creatinine 2.8 H Glucose 119 H POC Glucose Lactic Acid Calcium 7.8 L Magnesium 2.70 H AST ALT Alkaline Phosphatase Troponin T C-Reactive Protein Total Protein Albumin LDL Cholesterol Direct HDL Cholesterol Hepatitis C Antibody Crossmatch 11/20/17 11/20/17 11/20/17 03:29 04:48 13:38 WBC RBC Hgb Hct MCV MCH MCHC RDW Plt Count Lymph % (Auto) [place] % (Auto) Eos % (Auto) Lymph # [place] # Eos # Seg Neutrophils % Seg Neuts % (Manual) Lymphocytes % (Manual) Monocytes % (Manual) Eosinophils % (Manual) Nucleated RBC % Seg Neutrophils # Seg Neutrophils # Man Lymphocytes # (Manual) Monocytes # (Manual) Eosinophils # (Manual) PT INR POC ABG pH POC ABG pCO2 29.4 L POC ABG pO2 Sodium 148 H Potassium 3.4 L Chloride 113.7 H Carbon Dioxide 18 L BUN 59 H Creatinine 2.7 H Glucose 113 H POC Glucose 128 H Lactic Acid Calcium 7.8 L Magnesium AST ALT Alkaline Phosphatase Troponin T C-Reactive Protein Total Protein Albumin LDL Cholesterol Direct HDL Cholesterol Hepatitis C Antibody Crossmatch 11/20/17 11/20/17 11/21/17 17:38 23:40 00:13 WBC RBC Hgb 8.4 L Hct 28.0 L MCV MCH MCHC RDW Plt Count Lymph % (Auto) [place] % (Auto) Eos % (Auto) Lymph # [place] # Eos # Seg Neutrophils % Seg Neuts % (Manual) Lymphocytes % (Manual) Monocytes % (Manual) Eosinophils % (Manual) Nucleated RBC % Seg Neutrophils # Seg Neutrophils # Man Lymphocytes # (Manual) Monocytes # (Manual) Eosinophils # (Manual) PT INR POC ABG pH POC ABG pCO2 POC ABG pO2 Sodium Potassium Chloride Carbon Dioxide BUN Creatinine Glucose POC Glucose 115 H 145 H Lactic Acid Calcium Magnesium AST ALT Alkaline Phosphatase Troponin T C-Reactive Protein Total Protein Albumin LDL Cholesterol Direct HDL Cholesterol Hepatitis C Antibody Crossmatch 11/21/17 11/21/17 11/21/17 04:30 04:30 04:58 WBC 21.0 H RBC Hgb 9.6 L Hct 32.7 L MCV MCH 25 L MCHC 29 L RDW 19.7 H Plt Count 746 H Lymph % (Auto) [place] % (Auto) Eos % (Auto) Lymph # [place] # Eos # Seg Neutrophils % Seg Neuts % (Manual) Lymphocytes % (Manual) Monocytes % (Manual) Eosinophils % (Manual) Nucleated RBC % Seg Neutrophils # Seg Neutrophils # Man Lymphocytes # (Manual) Monocytes # (Manual) Eosinophils # (Manual) PT INR POC ABG pH POC ABG pCO2 POC ABG pO2 Sodium Potassium Chloride 109.4 H Carbon Dioxide 14 L BUN 59 H Creatinine 3.0 H Glucose 137 H POC Glucose 132 H Lactic Acid Calcium 7.6 L Magnesium AST ALT Alkaline Phosphatase Troponin T C-Reactive Protein Total Protein Albumin LDL Cholesterol Direct HDL Cholesterol Hepatitis C Antibody Crossmatch 11/21/17 11/21/17 11/21/17 06:30 13:43 14:17 WBC 38.2 H RBC Hgb 9.0 L Hct 32.3 L MCV MCH 25 L MCHC 28 L RDW 20.0 H Plt Count 766 H Lymph % (Auto) [place] % (Auto) Eos % (Auto) Lymph # [place] # Eos # Seg Neutrophils % Seg Neuts % (Manual) 85.0 H Lymphocytes % (Manual) 1.0 L Monocytes % (Manual) Eosinophils % (Manual) Nucleated RBC % 2.0 H Seg Neutrophils # Seg Neutrophils # Man 32.5 H Lymphocytes # (Manual) 0.4 L Monocytes # (Manual) 2.3 H Eosinophils # (Manual) PT INR POC ABG pH POC ABG pCO2 18.6 L POC ABG pO2 121 H Sodium 146 H Potassium Chloride 110.9 H Carbon Dioxide 11 L BUN 62 H Creatinine 4.0 H Glucose 64 L POC Glucose Lactic Acid Calcium 7.6 L Magnesium AST ALT Alkaline Phosphatase Troponin T C-Reactive Protein Total Protein Albumin LDL Cholesterol Direct HDL Cholesterol Hepatitis C Antibody Crossmatch 11/21/17 11/21/17 11/22/17 14:17 19:09 00:05 WBC RBC Hgb Hct MCV MCH MCHC RDW Plt Count Lymph % (Auto) [place] % (Auto) Eos % (Auto) Lymph # [place] # Eos # Seg Neutrophils % Seg Neuts % (Manual) Lymphocytes % (Manual) Monocytes % (Manual) Eosinophils % (Manual) Nucleated RBC % Seg Neutrophils # Seg Neutrophils # Man Lymphocytes # (Manual) Monocytes # (Manual) Eosinophils # (Manual) PT INR POC ABG pH POC ABG pCO2 20.0 L POC ABG pO2 Sodium Potassium Chloride Carbon Dioxide BUN Creatinine Glucose POC Glucose 127 H Lactic Acid 7.70 H* Calcium Magnesium AST ALT Alkaline Phosphatase Troponin T C-Reactive Protein Total Protein Albumin LDL Cholesterol Direct HDL Cholesterol Hepatitis C Antibody Crossmatch 11/22/17 11/22/17 11/22/17 03:53 06:00 07:25 WBC RBC Hgb Hct MCV MCH MCHC RDW Plt Count Lymph % (Auto) [place] % (Auto) Eos % (Auto) Lymph # [place] # Eos # Seg Neutrophils % Seg Neuts % (Manual) Lymphocytes % (Manual) Monocytes % (Manual) Eosinophils % (Manual) Nucleated RBC % Seg Neutrophils # Seg Neutrophils # Man Lymphocytes # (Manual) Monocytes # (Manual) Eosinophils # (Manual) PT INR POC ABG pH POC ABG pCO2 22.2 L POC ABG pO2 Sodium 147 H Potassium Chloride 111.9 H Carbon Dioxide 16 L BUN 72 H Creatinine 5.1 H Glucose 181 H POC Glucose 180 H Lactic Acid Calcium 7.1 L Magnesium AST ALT Alkaline Phosphatase Troponin T C-Reactive Protein Total Protein Albumin LDL Cholesterol Direct HDL Cholesterol Hepatitis C Antibody Crossmatch 11/22/17 11/22/17 11/22/17 07:25 07:25 12:05 WBC 31.4 H RBC 3.22 L Hgb 8.0 L Hct 26.7 L MCV 83 L MCH 25 L MCHC 30 L RDW 19.4 H Plt Count 602 H Lymph % (Auto) [place] % (Auto) Eos % (Auto) Lymph # [place] # Eos # Seg Neutrophils % Seg Neuts % (Manual) Lymphocytes % (Manual) Monocytes % (Manual) Eosinophils % (Manual) Nucleated RBC % Seg Neutrophils # Seg Neutrophils # Man Lymphocytes # (Manual) Monocytes # (Manual) Eosinophils # (Manual) PT INR POC ABG pH POC ABG pCO2 POC ABG pO2 Sodium Potassium Chloride Carbon Dioxide BUN Creatinine Glucose POC Glucose 182 H Lactic Acid 5.00 H* Calcium Magnesium AST ALT Alkaline Phosphatase Troponin T C-Reactive Protein Total Protein Albumin LDL Cholesterol Direct HDL Cholesterol Hepatitis C Antibody Crossmatch 11/22/17 11/23/17 11/23/17 19:45 01:28 04:56 WBC RBC Hgb Hct MCV MCH MCHC RDW Plt Count Lymph % (Auto) [place] % (Auto) Eos % (Auto) Lymph # [place] # Eos # Seg Neutrophils % Seg Neuts % (Manual) Lymphocytes % (Manual) Monocytes % (Manual) Eosinophils % (Manual) Nucleated RBC % Seg Neutrophils # Seg Neutrophils # Man Lymphocytes # (Manual) Monocytes # (Manual) Eosinophils # (Manual) PT INR POC ABG pH 7.505 H POC ABG pCO2 26.3 L POC ABG pO2 Sodium Potassium Chloride Carbon Dioxide BUN Creatinine Glucose POC Glucose 165 H Lactic Acid Calcium Magnesium AST ALT Alkaline Phosphatase Troponin T C-Reactive Protein Total Protein Albumin LDL Cholesterol Direct HDL Cholesterol Hepatitis C Antibody Reactive A Crossmatch 11/23/17 11/23/17 11/23/17 07:05 12:32 17:53 WBC RBC Hgb Hct MCV MCH MCHC RDW Plt Count Lymph % (Auto) [place] % (Auto) Eos % (Auto) Lymph # [place] # Eos # Seg Neutrophils % Seg Neuts % (Manual) Lymphocytes % (Manual) Monocytes % (Manual) Eosinophils % (Manual) Nucleated RBC % Seg Neutrophils # Seg Neutrophils # Man Lymphocytes # (Manual) Monocytes # (Manual) Eosinophils # (Manual) PT INR POC ABG pH POC ABG pCO2 POC ABG pO2 Sodium Potassium Chloride Carbon Dioxide 18 L BUN 61 H Creatinine 4.2 H Glucose 153 H POC Glucose 138 H 173 H Lactic Acid Calcium 7.5 L Magnesium AST ALT Alkaline Phosphatase Troponin T C-Reactive Protein Total Protein Albumin LDL Cholesterol Direct HDL Cholesterol Hepatitis C Antibody Crossmatch 11/23/17 11/24/17 11/24/17 23:41 05:42 05:42 WBC 21.5 H RBC 2.48 L Hgb 6.2 L Hct 20.3 L D MCV 82 L MCH 25 L MCHC 31 L RDW 18.9 H Plt Count Lymph % (Auto) [place] % (Auto) Eos % (Auto) Lymph # [place] # Eos # Seg Neutrophils % Seg Neuts % (Manual) 94.0 H Lymphocytes % (Manual) 3.0 L Monocytes % (Manual) Eosinophils % (Manual) Nucleated RBC % Seg Neutrophils # Seg Neutrophils # Man 20.2 H Lymphocytes # (Manual) 0.6 L Monocytes # (Manual) Eosinophils # (Manual) PT INR POC ABG pH POC ABG pCO2 POC ABG pO2 Sodium 149 H Potassium 2.8 L* D Chloride 113.9 H Carbon Dioxide 19 L BUN 31 H Creatinine 2.3 H Glucose 103 H POC Glucose 133 H Lactic Acid Calcium 5.3 L* D Magnesium 1.30 L AST ALT Alkaline Phosphatase Troponin T C-Reactive Protein Total Protein Albumin LDL Cholesterol Direct HDL Cholesterol Hepatitis C Antibody Crossmatch 11/24/17 11/24/17 11/24/17 05:42 08:27 08:27 WBC RBC Hgb Hct MCV MCH MCHC RDW Plt Count Lymph % (Auto) [place] % (Auto) Eos % (Auto) Lymph # [place] # Eos # Seg Neutrophils % Seg Neuts % (Manual) Lymphocytes % (Manual) Monocytes % (Manual) Eosinophils % (Manual) Nucleated RBC % Seg Neutrophils # Seg Neutrophils # Man Lymphocytes # (Manual) Monocytes # (Manual) Eosinophils # (Manual) PT INR POC ABG pH POC ABG pCO2 POC ABG pO2 Sodium Potassium Chloride Carbon Dioxide BUN Creatinine Glucose POC Glucose Lactic Acid 5.40 H* 5.20 H* Calcium Magnesium AST ALT Alkaline Phosphatase Troponin T C-Reactive Protein Total Protein Albumin LDL Cholesterol Direct HDL Cholesterol Hepatitis C Antibody Crossmatch See Detail 11/24/17 11/24/17 11/24/17 12:13 17:22 21:53 WBC 23.0 H RBC 3.32 L Hgb 8.8 L Hct 27.1 L D MCV 82 L MCH 26 L MCHC RDW 17.3 H Plt Count Lymph % (Auto) [place] % (Auto) Eos % (Auto) Lymph # [place] # Eos # Seg Neutrophils % Seg Neuts % (Manual) Lymphocytes % (Manual) Monocytes % (Manual) Eosinophils % (Manual) Nucleated RBC % Seg Neutrophils # Seg Neutrophils # Man Lymphocytes # (Manual) Monocytes # (Manual) Eosinophils # (Manual) PT INR POC ABG pH POC ABG pCO2 POC ABG pO2 Sodium Potassium Chloride Carbon Dioxide BUN Creatinine Glucose POC Glucose 138 H 180 H Lactic Acid Calcium Magnesium AST ALT Alkaline Phosphatase Troponin T C-Reactive Protein Total Protein Albumin LDL Cholesterol Direct HDL Cholesterol Hepatitis C Antibody Crossmatch 11/24/17 11/24/17 11/25/17 21:53 23:28 04:19 WBC RBC Hgb Hct MCV MCH MCHC RDW Plt Count Lymph % (Auto) [place] % (Auto) Eos % (Auto) Lymph # [place] # Eos # Seg Neutrophils % Seg Neuts % (Manual) Lymphocytes % (Manual) Monocytes % (Manual) Eosinophils % (Manual) Nucleated RBC % Seg Neutrophils # Seg Neutrophils # Man Lymphocytes # (Manual) Monocytes # (Manual) Eosinophils # (Manual) PT INR POC ABG pH POC ABG pCO2 POC ABG pO2 Sodium Potassium Chloride 96.3 L Carbon Dioxide BUN 28 H 31 H Creatinine 2.3 H 2.6 H Glucose 125 H 101 H POC Glucose 111 H Lactic Acid Calcium 7.5 L D 7.4 L Magnesium AST 170 H ALT 179 H Alkaline Phosphatase 175 H Troponin T C-Reactive Protein Total Protein 5.5 L Albumin 1.8 L LDL Cholesterol Direct HDL Cholesterol Hepatitis C Antibody Crossmatch 11/25/17 11/25/17 11/26/17 04:19 04:19 06:29 WBC 22.5 H RBC 3.48 L Hgb 9.1 L Hct 28.3 L MCV 81 L MCH 26 L MCHC RDW 17.4 H Plt Count Lymph % (Auto) [place] % (Auto) Eos % (Auto) Lymph # [place] # Eos # Seg Neutrophils % Seg Neuts % (Manual) Lymphocytes % (Manual) Monocytes % (Manual) Eosinophils % (Manual) Nucleated RBC % Seg Neutrophils # Seg Neutrophils # Man Lymphocytes # (Manual) Monocytes # (Manual) Eosinophils # (Manual) PT 23.6 H INR 1.96 H POC ABG pH POC ABG pCO2 POC ABG pO2 Sodium Potassium Chloride Carbon Dioxide BUN 31 H Creatinine 2.6 H Glucose 101 H POC Glucose Lactic Acid Calcium 7.5 L Magnesium AST ALT Alkaline Phosphatase Troponin T C-Reactive Protein Total Protein Albumin LDL Cholesterol Direct HDL Cholesterol Hepatitis C Antibody Crossmatch 11/26/17 11/27/17 11/27/17 06:34 04:06 04:06 WBC 11.3 H RBC 3.13 L Hgb 8.4 L Hct 25.8 L MCV 82 L MCH 27 L MCHC RDW 17.7 H Plt Count Lymph % (Auto) 7.4 L [place] % (Auto) Eos % (Auto) Lymph # 0.8 L [place] # Eos # Seg Neutrophils % 83.7 H Seg Neuts % (Manual) Lymphocytes % (Manual) Monocytes % (Manual) Eosinophils % (Manual) Nucleated RBC % Seg Neutrophils # 9.5 H Seg Neutrophils # Man Lymphocytes # (Manual) Monocytes # (Manual) Eosinophils # (Manual) PT INR POC ABG pH POC ABG pCO2 POC ABG pO2 Sodium Potassium Chloride 97.9 L Carbon Dioxide BUN 43 H 29 H Creatinine 3.5 H 2.9 H Glucose POC Glucose Lactic Acid Calcium 7.5 L 8.1 L Magnesium AST ALT Alkaline Phosphatase Troponin T C-Reactive Protein Total Protein Albumin LDL Cholesterol Direct HDL Cholesterol Hepatitis C Antibody Crossmatch 11/27/17 11/28/17 11/28/17 18:11 00:16 03:50 WBC RBC Hgb Hct MCV MCH MCHC RDW Plt Count Lymph % (Auto) [place] % (Auto) Eos % (Auto) Lymph # [place] # Eos # Seg Neutrophils % Seg Neuts % (Manual) Lymphocytes % (Manual) Monocytes % (Manual) Eosinophils % (Manual) Nucleated RBC % Seg Neutrophils # Seg Neutrophils # Man Lymphocytes # (Manual) Monocytes # (Manual) Eosinophils # (Manual) PT INR POC ABG pH POC ABG pCO2 POC ABG pO2 Sodium Potassium Chloride Carbon Dioxide BUN 39 H Creatinine 4.1 H Glucose 108 H POC Glucose 110 H 124 H Lactic Acid Calcium 7.9 L Magnesium AST ALT Alkaline Phosphatase Troponin T C-Reactive Protein Total Protein Albumin LDL Cholesterol Direct HDL Cholesterol Hepatitis C Antibody Crossmatch 11/28/17 11/28/17 11/28/17 05:03 11:36 17:42 WBC RBC Hgb Hct MCV MCH MCHC RDW Plt Count Lymph % (Auto) [place] % (Auto) Eos % (Auto) Lymph # [place] # Eos # Seg Neutrophils % Seg Neuts % (Manual) Lymphocytes % (Manual) Monocytes % (Manual) Eosinophils % (Manual) Nucleated RBC % Seg Neutrophils # Seg Neutrophils # Man Lymphocytes # (Manual) Monocytes # (Manual) Eosinophils # (Manual) PT INR POC ABG pH POC ABG pCO2 POC ABG pO2 Sodium Potassium Chloride Carbon Dioxide BUN Creatinine Glucose POC Glucose 134 H 114 H 119 H Lactic Acid Calcium Magnesium AST ALT Alkaline Phosphatase Troponin T C-Reactive Protein Total Protein Albumin LDL Cholesterol Direct HDL Cholesterol Hepatitis C Antibody Crossmatch 11/29/17 11/29/17 11/29/17 00:22 05:25 05:25 WBC 12.3 H RBC 3.34 L Hgb 8.6 L Hct 27.3 L MCV 82 L MCH 26 L MCHC RDW 18.5 H Plt Count Lymph % (Auto) 3.7 L [place] % (Auto) 7.7 H Eos % (Auto) Lymph # 0.5 L [place] # 1.0 H Eos # Seg Neutrophils % 86.5 H Seg Neuts % (Manual) Lymphocytes % (Manual) Monocytes % (Manual) Eosinophils % (Manual) Nucleated RBC % Seg Neutrophils # 10.7 H Seg Neutrophils # Man Lymphocytes # (Manual) Monocytes # (Manual) Eosinophils # (Manual) PT INR POC ABG pH POC ABG pCO2 POC ABG pO2 Sodium Potassium Chloride Carbon Dioxide BUN 29 H Creatinine 3.5 H Glucose 109 H POC Glucose 137 H Lactic Acid Calcium 7.8 L Magnesium AST ALT Alkaline Phosphatase Troponin T C-Reactive Protein Total Protein Albumin LDL Cholesterol Direct HDL Cholesterol Hepatitis C Antibody Crossmatch 11/29/17 11/30/17 11/30/17 05:26 00:26 04:17 WBC RBC Hgb Hct MCV MCH MCHC RDW Plt Count Lymph % (Auto) [place] % (Auto) Eos % (Auto) Lymph # [place] # Eos # Seg Neutrophils % Seg Neuts % (Manual) Lymphocytes % (Manual) Monocytes % (Manual) Eosinophils % (Manual) Nucleated RBC % Seg Neutrophils # Seg Neutrophils # Man Lymphocytes # (Manual) Monocytes # (Manual) Eosinophils # (Manual) PT INR POC ABG pH POC ABG pCO2 POC ABG pO2 Sodium Potassium Chloride Carbon Dioxide BUN 38 H Creatinine 4.3 H Glucose 109 H POC Glucose 129 H 152 H Lactic Acid Calcium 7.8 L Magnesium AST ALT Alkaline Phosphatase Troponin T C-Reactive Protein Total Protein Albumin LDL Cholesterol Direct HDL Cholesterol Hepatitis C Antibody Crossmatch 11/30/17 11/30/17 11/30/17 12:17 16:23 23:35 WBC RBC Hgb Hct MCV MCH MCHC RDW Plt Count Lymph % (Auto) [place] % (Auto) Eos % (Auto) Lymph # [place] # Eos # Seg Neutrophils % Seg Neuts % (Manual) Lymphocytes % (Manual) Monocytes % (Manual) Eosinophils % (Manual) Nucleated RBC % Seg Neutrophils # Seg Neutrophils # Man Lymphocytes # (Manual) Monocytes # (Manual) Eosinophils # (Manual) PT INR POC ABG pH POC ABG pCO2 POC ABG pO2 Sodium Potassium Chloride Carbon Dioxide BUN Creatinine Glucose POC Glucose 170 H 114 H 122 H Lactic Acid Calcium Magnesium AST ALT Alkaline Phosphatase Troponin T C-Reactive Protein Total Protein Albumin LDL Cholesterol Direct HDL Cholesterol Hepatitis C Antibody Crossmatch 12/01/17 12/01/17 12/01/17 04:09 04:09 12:17 WBC 14.1 H RBC 3.32 L Hgb 8.6 L Hct 27.0 L MCV 81 L MCH 26 L MCHC RDW 18.7 H Plt Count Lymph % (Auto) 5.5 L [place] % (Auto) 9.7 H Eos % (Auto) Lymph # 0.8 L [place] # 1.4 H Eos # Seg Neutrophils % 82.9 H Seg Neuts % (Manual) Lymphocytes % (Manual) Monocytes % (Manual) Eosinophils % (Manual) Nucleated RBC % Seg Neutrophils # 11.7 H Seg Neutrophils # Man Lymphocytes # (Manual) Monocytes # (Manual) Eosinophils # (Manual) PT INR POC ABG pH POC ABG pCO2 POC ABG pO2 Sodium Potassium 3.4 L Chloride Carbon Dioxide BUN 21 H Creatinine 3.0 H Glucose 108 H POC Glucose 126 H Lactic Acid Calcium 8.0 L Magnesium AST ALT Alkaline Phosphatase Troponin T C-Reactive Protein Total Protein Albumin LDL Cholesterol Direct HDL Cholesterol Hepatitis C Antibody Crossmatch 12/02/17 12/03/17 12/03/17 23:46 02:52 05:54 WBC 17.2 H RBC 3.21 L Hgb 8.5 L Hct 25.8 L MCV 80 L MCH 26 L MCHC RDW 18.4 H Plt Count 128 L Lymph % (Auto) [place] % (Auto) Eos % (Auto) Lymph # [place] # Eos # Seg Neutrophils % Seg Neuts % (Manual) Lymphocytes % (Manual) Monocytes % (Manual) Eosinophils % (Manual) Nucleated RBC % Seg Neutrophils # Seg Neutrophils # Man Lymphocytes # (Manual) Monocytes # (Manual) Eosinophils # (Manual) PT INR POC ABG pH POC ABG pCO2 POC ABG pO2 Sodium Potassium Chloride Carbon Dioxide BUN Creatinine Glucose POC Glucose 125 H 107 H Lactic Acid Calcium Magnesium AST ALT Alkaline Phosphatase Troponin T C-Reactive Protein Total Protein Albumin LDL Cholesterol Direct HDL Cholesterol Hepatitis C Antibody Crossmatch 12/03/17 12/03/17 12/04/17 12:05 Unknown 12:26 WBC RBC Hgb Hct MCV MCH MCHC RDW Plt Count Lymph % (Auto) [place] % (Auto) Eos % (Auto) Lymph # [place] # Eos # Seg Neutrophils % Seg Neuts % (Manual) Lymphocytes % (Manual) Monocytes % (Manual) Eosinophils % (Manual) Nucleated RBC % Seg Neutrophils # Seg Neutrophils # Man Lymphocytes # (Manual) Monocytes # (Manual) Eosinophils # (Manual) PT INR POC ABG pH POC ABG pCO2 POC ABG pO2 Sodium Potassium Chloride Carbon Dioxide BUN 21 H Creatinine 2.8 H Glucose 113 H POC Glucose 106 H 119 H Lactic Acid Calcium Magnesium AST ALT Alkaline Phosphatase Troponin T C-Reactive Protein Total Protein Albumin LDL Cholesterol Direct HDL Cholesterol Hepatitis C Antibody Crossmatch 12/04/17 12/05/17 12/05/17 17:57 00:52 04:05 WBC RBC 2.96 L Hgb 7.7 L Hct 24.2 L MCV 82 L MCH 26 L MCHC RDW 18.8 H Plt Count 105 L Lymph % (Auto) 10.6 L [place] % (Auto) 12.1 H Eos % (Auto) 5.2 H Lymph # 1.1 L [place] # 1.3 H Eos # 0.5 H Seg Neutrophils % 71.3 H Seg Neuts % (Manual) Lymphocytes % (Manual) Monocytes % (Manual) Eosinophils % (Manual) Nucleated RBC % Seg Neutrophils # Seg Neutrophils # Man Lymphocytes # (Manual) Monocytes # (Manual) Eosinophils # (Manual) PT INR POC ABG pH POC ABG pCO2 POC ABG pO2 Sodium Potassium Chloride Carbon Dioxide BUN Creatinine Glucose POC Glucose 140 H 117 H Lactic Acid Calcium Magnesium AST ALT Alkaline Phosphatase Troponin T C-Reactive Protein Total Protein Albumin LDL Cholesterol Direct HDL Cholesterol Hepatitis C Antibody Crossmatch 12/05/17 12/05/17 12/06/17 04:05 22:50 08:18 WBC RBC 2.80 L Hgb 7.4 L Hct 23.0 L MCV 82 L MCH 27 L MCHC RDW 19.5 H Plt Count 125 L Lymph % (Auto) [place] % (Auto) Eos % (Auto) Lymph # [place] # Eos # Seg Neutrophils % Seg Neuts % (Manual) Lymphocytes % (Manual) Monocytes % (Manual) Eosinophils % (Manual) Nucleated RBC % Seg Neutrophils # Seg Neutrophils # Man Lymphocytes # (Manual) Monocytes # (Manual) Eosinophils # (Manual) PT INR POC ABG pH POC ABG pCO2 POC ABG pO2 Sodium Potassium Chloride 107.4 H Carbon Dioxide BUN Creatinine 2.5 H Glucose POC Glucose 112 H Lactic Acid Calcium 8.3 L Magnesium AST ALT Alkaline Phosphatase Troponin T C-Reactive Protein Total Protein Albumin LDL Cholesterol Direct HDL Cholesterol Hepatitis C Antibody Crossmatch 12/06/17 12/06/17 12/06/17 08:18 12:01 23:58 WBC RBC Hgb Hct MCV MCH MCHC RDW Plt Count Lymph % (Auto) [place] % (Auto) Eos % (Auto) Lymph # [place] # Eos # Seg Neutrophils % Seg Neuts % (Manual) Lymphocytes % (Manual) Monocytes % (Manual) Eosinophils % (Manual) Nucleated RBC % Seg Neutrophils # Seg Neutrophils # Man Lymphocytes # (Manual) Monocytes # (Manual) Eosinophils # (Manual) PT INR POC ABG pH POC ABG pCO2 POC ABG pO2 Sodium Potassium Chloride 108.4 H Carbon Dioxide BUN 28 H Creatinine 3.7 H Glucose 103 H POC Glucose 106 H 108 H Lactic Acid Calcium 8.0 L Magnesium AST ALT Alkaline Phosphatase Troponin T C-Reactive Protein Total Protein Albumin LDL Cholesterol Direct HDL Cholesterol Hepatitis C Antibody Crossmatch 12/07/17 12/07/17 12/07/17 05:47 05:47 18:03 WBC RBC 2.79 L Hgb 7.3 L Hct 22.8 L MCV 82 L MCH 26 L MCHC RDW 19.1 H Plt Count 101 L Lymph % (Auto) [place] % (Auto) Eos % (Auto) Lymph # [place] # Eos # Seg Neutrophils % Seg Neuts % (Manual) 72.0 H Lymphocytes % (Manual) 13.0 L Monocytes % (Manual) Eosinophils % (Manual) 9.0 H Nucleated RBC % Seg Neutrophils # Seg Neutrophils # Man Lymphocytes # (Manual) 1.1 L Monocytes # (Manual) Eosinophils # (Manual) 0.8 H PT INR POC ABG pH POC ABG pCO2 POC ABG pO2 Sodium 146 H Potassium Chloride 109.8 H Carbon Dioxide BUN 36 H Creatinine 4.0 H Glucose POC Glucose 143 H Lactic Acid Calcium 8.0 L Magnesium AST ALT Alkaline Phosphatase Troponin T C-Reactive Protein Total Protein Albumin LDL Cholesterol Direct HDL Cholesterol Hepatitis C Antibody Crossmatch 12/07/17 12/08/17 12/08/17 23:33 05:10 05:10 WBC RBC 2.91 L Hgb 7.5 L Hct 24.4 L MCV MCH 26 L MCHC 31 L RDW 19.7 H Plt Count 109 L Lymph % (Auto) [place] % (Auto) Eos % (Auto) Lymph # [place] # Eos # Seg Neutrophils % Seg Neuts % (Manual) Lymphocytes % (Manual) 11.0 L Monocytes % (Manual) Eosinophils % (Manual) 12.0 H Nucleated RBC % Seg Neutrophils # Seg Neutrophils # Man Lymphocytes # (Manual) 0.7 L Monocytes # (Manual) Eosinophils # (Manual) 0.7 H PT INR POC ABG pH POC ABG pCO2 POC ABG pO2 Sodium 147 H Potassium Chloride 110.4 H Carbon Dioxide BUN Creatinine 2.8 H Glucose POC Glucose 107 H Lactic Acid Calcium 7.8 L Magnesium AST ALT Alkaline Phosphatase Troponin T C-Reactive Protein Total Protein Albumin LDL Cholesterol Direct HDL Cholesterol Hepatitis C Antibody Crossmatch 12/09/17 12/09/17 12/09/17 04:18 04:18 12:16 WBC RBC Hgb 7.2 L Hct 23.2 L MCV MCH MCHC RDW Plt Count Lymph % (Auto) [place] % (Auto) Eos % (Auto) Lymph # [place] # Eos # Seg Neutrophils % Seg Neuts % (Manual) Lymphocytes % (Manual) Monocytes % (Manual) Eosinophils % (Manual) Nucleated RBC % Seg Neutrophils # Seg Neutrophils # Man Lymphocytes # (Manual) Monocytes # (Manual) Eosinophils # (Manual) PT INR POC ABG pH POC ABG pCO2 POC ABG pO2 Sodium 150 H Potassium Chloride 114.5 H Carbon Dioxide BUN 25 H Creatinine 3.3 H Glucose POC Glucose 142 H Lactic Acid Calcium 7.7 L Magnesium AST ALT Alkaline Phosphatase Troponin T C-Reactive Protein Total Protein Albumin LDL Cholesterol Direct HDL Cholesterol Hepatitis C Antibody Crossmatch 12/10/17 12/10/17 12/11/17 05:14 05:14 12:05 WBC RBC 2.81 L Hgb 7.4 L Hct 23.9 L MCV MCH 26 L MCHC 31 L RDW 19.1 H Plt Count 128 L Lymph % (Auto) [place] % (Auto) Eos % (Auto) Lymph # [place] # Eos # Seg Neutrophils % Seg Neuts % (Manual) 78.0 H Lymphocytes % (Manual) 8.0 L Monocytes % (Manual) Eosinophils % (Manual) 5.0 H Nucleated RBC % Seg Neutrophils # Seg Neutrophils # Man Lymphocytes # (Manual) 0.6 L Monocytes # (Manual) Eosinophils # (Manual) PT INR POC ABG pH POC ABG pCO2 POC ABG pO2 Sodium Potassium Chloride Carbon Dioxide BUN Creatinine 2.2 H Glucose POC Glucose 127 H Lactic Acid Calcium 7.8 L Magnesium AST ALT Alkaline Phosphatase Troponin T C-Reactive Protein Total Protein Albumin LDL Cholesterol Direct HDL Cholesterol Hepatitis C Antibody Crossmatch 12/11/17 12/11/17 12/11/17 15:26 18:36 23:40 WBC RBC Hgb Hct MCV MCH MCHC RDW Plt Count Lymph % (Auto) [place] % (Auto) Eos % (Auto) Lymph # [place] # Eos # Seg Neutrophils % Seg Neuts % (Manual) Lymphocytes % (Manual) Monocytes % (Manual) Eosinophils % (Manual) Nucleated RBC % Seg Neutrophils # Seg Neutrophils # Man Lymphocytes # (Manual) Monocytes # (Manual) Eosinophils # (Manual) PT INR POC ABG pH POC ABG pCO2 POC ABG pO2 Sodium Potassium 3.3 L Chloride Carbon Dioxide BUN Creatinine 1.6 H Glucose POC Glucose 106 H 110 H Lactic Acid Calcium 7.6 L Magnesium AST ALT Alkaline Phosphatase Troponin T C-Reactive Protein Total Protein Albumin LDL Cholesterol Direct HDL Cholesterol Hepatitis C Antibody Crossmatch 12/12/17 12/12/17 12/12/17 05:10 05:41 05:41 WBC RBC 3.17 L Hgb 8.1 L Hct 25.7 L MCV 81 L MCH 25 L MCHC 31 L RDW 19.2 H Plt Count Lymph % (Auto) [place] % (Auto) Eos % (Auto) Lymph # [place] # Eos # Seg Neutrophils % Seg Neuts % (Manual) 74.0 H Lymphocytes % (Manual) 6.0 L Monocytes % (Manual) Eosinophils % (Manual) 9.0 H Nucleated RBC % Seg Neutrophils # Seg Neutrophils # Man Lymphocytes # (Manual) 0.6 L Monocytes # (Manual) Eosinophils # (Manual) 0.9 H PT INR POC ABG pH POC ABG pCO2 POC ABG pO2 Sodium Potassium 3.5 L Chloride Carbon Dioxide BUN Creatinine 2.3 H Glucose 113 H POC Glucose 112 H Lactic Acid Calcium 7.5 L Magnesium AST ALT Alkaline Phosphatase Troponin T C-Reactive Protein Total Protein Albumin LDL Cholesterol Direct HDL Cholesterol Hepatitis C Antibody Crossmatch
[2017-12-12] MEDS: PREVACID SOLUTAB FEEDTUBE SCH ×2 (10:03→21:38)
[2017-12-12] MEDS: DIFLUCAN 200 MG/100 ML BAG IV SCH (10:03)
[2017-12-12] MEDS: MERREM 1,000 MG in NACL 0.9% 100 ML IV SCH (10:03)
[2017-12-12] MEDS: D5NS 0.2% 1,000 ML IV SCH (10:08)
[2017-12-12] MEDS: SODIUM CHLORIDE FLUSH SYRINGE 10 ML IV SCH ×2 (10:10→21:39)
[2017-12-12] MEDS ORDERED: SIMPLE SYRUP FEEDTUBE PRN ×3 (11:48→12:03)
[2017-12-12] MEDS ORDERED: SODIUM BICARBONATE FEEDTUBE PRN (12:03)
[2017-12-12] MEDS ORDERED: PANCREAZE DR 10,500 UNIT FEEDTUBE PRN (12:03)
--- NOTE | 2017-12-12 15:12 | Progress Note ---
Assessment and Plan Peritonitis and possible intra-abdominal abscess - likely from dislodged peg tube - removed PEG tube on 11/22 - peritoneal Fluid positive for Enterobacter, Heather (non albicans) - Antibiotic managed by ID - s/p multiple intraabdominal drainages placed by IR and GS. also had abdominal washout by GS - last drainage was placed on 12/06 by IR - plan to remove at least two drainage on Thursday Acute on chronic respiratory failure with hypoxia - likely due to aspiration and PNA - Status post tracheostomy, currently on T-piece - Pulmonology following Severe sepsis with shock likely secondary to aspiration pneumonia -Off IV pressors -Blood and sputum cultures negative Aspiration pneumonia with mucus plugging -treated with zosyn Acute kidney injury secondary to ATN -on Intermittent HD started on 11/23/17 with vascath -Creatinine level improved -Nephrology following Anemia of acute loss secondary to gastric ulcer and gastritis -Status post EGD on 11/18/2017 -Status post blood transfusion -H/H stable, will monitor Acute encephalopathy, likely multifactorial -Will continue to monitor clinically -Prognosis is poor Hypernatremia -Resolved Hypokalemia -We cont to monitor level and replete as needed Hypomagnesemia -Resolved status post repletion Oropharyngeal dysphagia -Status post PEG tube placement on 11/06, now removed -On tube feeding with dobhoff History of recent CVA -Not on aspirin due to recent bleed RT ICA stenosis -s/p recent endarterectomy Disposition: Patient overall prognosis remains poor. Continue management Brief History 67yo M with history CVA, a PEG tube placed by GI on 11/06 presented (11/12) from rehab for respiratory failure, sepsis, hypotension and multilober PNA. Recent work-up for hypotension showed a dislodged PEG tube on CT scan with extraluminal PO contrast that was limited to the upper abdomen and left gutter. Pt had an EGD on 11/18 that did not show the PEG button or an obvious hole in the stomach. There was no free air noted on CXR's. Pt had IR guided drainage placed in the 3 different locations of abdomen. He is now s/p trach by ENT. Recent Ct abdoemn/pelvis on 12/04/17 showed persistent abdominal collection of abscess/fluid and s/p repeat drainage 12/06/17 Hospitalist Physical General appearance: Present: no acute distress - EENT Eyes: Present: PERRL ENT: clear oral mucosa - Neck Neck: Present: supple, other (status post tracheostomy on T-piece) - Respiratory Respiratory effort: normal Respiratory: bilateral: CTA - Cardiovascular Rhythm: other (tachycardia) Heart Sounds: Present: S1 & S2 - Extremities Extremity abnormal: edema (in BLE) - Abdominal General gastrointestinal: non-distended, distended, normal bowel sounds, other ( firm on palpation), total [address] on the left side of - Neurologic Neurologic: other (patient is awake but unable to follow commands) Subjective Date of service: 12/12/17 Principal diagnosis: Acute hypoxic respiratory failure, s/p Trach Interval history: Pt seen and examined, nonverbal No acute event reported by RN discussed plan of care with RN at bedside drainage significantly reduced and Improving clinically Objective - Constitutional Vitals: Vital Signs - 12hr 12/12/17 12/12/17 12/12/17 03:35 03:40 04:00 Temperature 98.6 F 98.7 F Pulse Rate 101 H Pulse Rate [ Right From Monitor] Respiratory 22 21 Rate Blood Pressure 129/75 138/79 O2 Sat by Pulse 97 Oximetry O2 Sat by Pulse Oximetry [ Assessment] 12/12/17 12/12/17 12/12/17 05:00 06:00 07:00 Temperature Pulse Rate 92 H 78 96 H Pulse Rate [ Right From Monitor] Respiratory 19 21 19 Rate Blood Pressure 134/86 128/76 149/95 O2 Sat by Pulse 94 98 100 Oximetry O2 Sat by Pulse Oximetry [ Assessment] 12/12/17 12/12/17 12/12/17 08:00 09:00 10:00 Temperature 99 F Pulse Rate 97 H 86 89 Pulse Rate [ 89 Right From Monitor] Respiratory 24 23 24 Rate Blood Pressure 143/89 120/69 118/78 O2 Sat by Pulse 99 94 96 Oximetry O2 Sat by Pulse Oximetry [ Assessment] 12/12/17 12/12/17 12/12/17 10:03 11:01 11:26 Temperature Pulse Rate 89 89 Pulse Rate [ Right From Monitor] Respiratory 30 H Rate Blood Pressure 118/78 157/89 O2 Sat by Pulse 97 Oximetry O2 Sat by Pulse 96 Oximetry [ Assessment] 12/12/17 12/12/17 12/12/17 11:31 12:00 13:00 Temperature 98.7 F Pulse Rate 74 80 Pulse Rate [ Right From Monitor] Respiratory 24 25 H Rate Blood Pressure 137/73 130/84 O2 Sat by Pulse 100 100 99 Oximetry O2 Sat by Pulse Oximetry [ Assessment] - Labs CBC & Chem 7: 12/12/17 05:41 12/12/17 05:41 Labs: Abnormal lab results 12/11/17 12/11/17 12/11/17 Range/Units 15:26 18:36 23:40 RBC (3.65-5.03) M/mm3 Hgb (11.8-15.2) gm/dl Hct (35.5-45.6) % MCV (84-94) fl MCH (28-32) pg MCHC (32-34) % RDW (13.2-15.2) % Seg Neuts % (Manual) (40.0-70.0) % Lymphocytes % (Manual) (13.4-35.0) % Eosinophils % (Manual) (0.0-4.3) % Lymphocytes # (Manual) (1.2-5.4) K/mm3 Eosinophils # (Manual) (0.0-0.4) K/mm3 Potassium 3.3 L (3.6-5.0) mmol/L Creatinine 1.6 H (0.8-1.5) mg/dL Glucose (75-100) mg/dL POC Glucose 106 H 110 H (70-105) Calcium 7.6 L (8.4-10.2) mg/dL 12/12/17 12/12/17 12/12/17 Range/Units 05:10 05:41 05:41 RBC 3.17 L (3.65-5.03) M/mm3 Hgb 8.1 L (11.8-15.2) gm/dl Hct 25.7 L (35.5-45.6) % MCV 81 L (84-94) fl MCH 25 L (28-32) pg MCHC 31 L (32-34) % RDW 19.2 H (13.2-15.2) % Seg Neuts % (Manual) 74.0 H (40.0-70.0) % Lymphocytes % (Manual) 6.0 L (13.4-35.0) % Eosinophils % (Manual) 9.0 H (0.0-4.3) % Lymphocytes # (Manual) 0.6 L (1.2-5.4) K/mm3 Eosinophils # (Manual) 0.9 H (0.0-0.4) K/mm3 Potassium 3.5 L (3.6-5.0) mmol/L Creatinine 2.3 H (0.8-1.5) mg/dL Glucose 113 H (75-100) mg/dL POC Glucose 112 H (70-105) Calcium 7.5 L (8.4-10.2) mg/dL
--- NOTE | 2017-12-13 09:50 | Progress Note ---
Assessment and Plan - Patient Problems (1) Fever Current Visit: Yes Status: Resolved (2) Hypotension Current Visit: Yes Status: Resolved (3) Metabolic acidosis Current Visit: Yes Status: Resolved (4) Acute renal failure (ARF) Current Visit: Yes Status: Acute (5) Acute respiratory failure with hypoxemia Current Visit: Yes Status: Chronic (6) Pneumonia Current Visit: Yes Status: Acute Qualifiers: Pneumonia type: due to unspecified organism Laterality: right Lung location: middle lobe of lung Qualified Code(s): J18.1 - Lobar pneumonia, unspecified organism (7) Septic shock Current Visit: Yes Status: Acute (8) Ventilator dependence Current Visit: Yes Status: Resolved (9) Anemia Current Visit: Yes Status: Acute (10) Shock circulatory Current Visit: Yes Status: Acute (11) Lactic acid acidosis Current Visit: Yes Status: Acute Subjective Principal diagnosis: Acute hypoxic respiratory failure, s/p Trach Interval history: on tpiece Objective Vital Signs - 12hr 12/12/17 12/12/17 12/12/17 22:00 22:30 23:00 Temperature Pulse Rate 113 H 97 H Pulse Rate [ 99 H Right From Monitor] Respiratory 31 H 33 H Rate Blood Pressure 146/93 135/89 O2 Sat by Pulse 96 98 Oximetry O2 Sat by Pulse 99 Oximetry [ Assessment] 12/12/17 12/13/17 12/13/17 23:24 00:00 01:00 Temperature 99.0 F Pulse Rate 101 H 93 H 102 H Pulse Rate [ Right From Monitor] Respiratory 33 H 23 36 H Rate Blood Pressure 144/94 149/89 148/92 O2 Sat by Pulse 98 95 97 Oximetry O2 Sat by Pulse Oximetry [ Assessment] 12/13/17 12/13/17 12/13/17 01:15 02:00 03:00 Temperature Pulse Rate 104 H 102 H Pulse Rate [ Right From Monitor] Respiratory 34 H 32 H Rate Blood Pressure 151/89 136/84 O2 Sat by Pulse 97 96 Oximetry O2 Sat by Pulse 97 Oximetry [ Assessment] 12/13/17 12/13/17 12/13/17 04:00 05:00 06:00 Temperature 98.7 F Pulse Rate 112 H 94 H 95 H Pulse Rate [ Right From Monitor] Respiratory 15 26 H 26 H Rate Blood Pressure 135/93 105/61 111/69 O2 Sat by Pulse 99 100 100 Oximetry O2 Sat by Pulse Oximetry [ Assessment] 12/13/17 12/13/17 12/13/17 08:00 08:51 09:01 Temperature 97.8 F Pulse Rate Pulse Rate [ Right From Monitor] Respiratory Rate Blood Pressure O2 Sat by Pulse 100 Oximetry O2 Sat by Pulse 100 Oximetry [ Assessment] Constitutional: no acute distress, alert Eyes: non-icteric ENT: oropharynx moist Neck: supple (trach in position), no JVD Effort: normal Ascultation: Bilateral: other (coarse BS bilaterally) Cardiovascular: regular rate and rhythm Gastrointestinal: normoactive bowel sounds, soft, non-tender, other (drainages in place) Integumentary: normal Extremities: no cyanosis, pink and warm, anasarca Neurologic: other (L hemiparesis,awake, response to my voice) Psychiatric: other (unable to assess) CBC and BMP: 12/12/17 05:41 12/12/17 05:41 ABG, PT/INR, D-dimer: ABG POC ABG pH 7.505 (7.35-7.45) H 11/23/17 04:56 POC ABG pCO2 26.3 (35-45) L 11/23/17 04:56 POC ABG pO2 100 (80-105) 11/23/17 04:56 POC ABG HCO3 20.8 11/23/17 04:56 POC ABG Total CO2 22 11/23/17 04:56 POC ABG O2 Sat 98 11/23/17 04:56 PT/INR, D-dimer PT 23.6 Sec. (12.2-14.9) H 11/26/17 06:29 INR 1.96 (0.87-1.13) H 11/26/17 06:29 Abnormal lab findings: Abnormal Labs 11/11/17 11/11/17 11/11/17 23:18 23:20 23:20 WBC RBC Hgb 10.4 L Hct 32.6 L D MCV MCH 27 L MCHC RDW 17.4 H Plt Count 105 L Lymph % (Auto) [place] % (Auto) Eos % (Auto) Lymph # [place] # Eos # Seg Neutrophils % Seg Neuts % (Manual) Lymphocytes % (Manual) 8.0 L Monocytes % (Manual) Eosinophils % (Manual) Nucleated RBC % 1.0 H Seg Neutrophils # Seg Neutrophils # Man Lymphocytes # (Manual) 0.7 L Monocytes # (Manual) Eosinophils # (Manual) PT INR POC ABG pH 7.550 H POC ABG pCO2 31.6 L POC ABG pO2 Sodium 146 H Potassium Chloride Carbon Dioxide BUN 26 H Creatinine 1.7 H D Glucose 133 H POC Glucose Lactic Acid Calcium Magnesium AST ALT Alkaline Phosphatase Troponin T 0.117 H* C-Reactive Protein Total Protein Albumin 2.5 L LDL Cholesterol Direct 42 L HDL Cholesterol 24 L Hepatitis C Antibody Crossmatch 11/11/17 11/12/17 11/12/17 23:20 00:23 00:23 WBC RBC Hgb Hct MCV MCH MCHC RDW Plt Count Lymph % (Auto) [place] % (Auto) Eos % (Auto) Lymph # [place] # Eos # Seg Neutrophils % Seg Neuts % (Manual) Lymphocytes % (Manual) Monocytes % (Manual) Eosinophils % (Manual) Nucleated RBC % Seg Neutrophils # Seg Neutrophils # Man Lymphocytes # (Manual) Monocytes # (Manual) Eosinophils # (Manual) PT 16.7 H INR 1.28 H POC ABG pH POC ABG pCO2 POC ABG pO2 Sodium Potassium Chloride Carbon Dioxide BUN Creatinine Glucose POC Glucose Lactic Acid 3.20 H* Calcium Magnesium AST ALT Alkaline Phosphatase Troponin T C-Reactive Protein 25.70 H Total Protein Albumin LDL Cholesterol Direct HDL Cholesterol Hepatitis C Antibody Crossmatch 11/12/17 11/12/17 11/12/17 00:46 01:27 01:27 WBC RBC Hgb Hct MCV MCH MCHC RDW Plt Count Lymph % (Auto) [place] % (Auto) Eos % (Auto) Lymph # [place] # Eos # Seg Neutrophils % Seg Neuts % (Manual) Lymphocytes % (Manual) Monocytes % (Manual) Eosinophils % (Manual) Nucleated RBC % Seg Neutrophils # Seg Neutrophils # Man Lymphocytes # (Manual) Monocytes # (Manual) Eosinophils # (Manual) PT INR POC ABG pH 7.495 H POC ABG pCO2 32.0 L POC ABG pO2 64 L Sodium Potassium Chloride Carbon Dioxide BUN Creatinine Glucose POC Glucose Lactic Acid 3.70 H* Calcium Magnesium AST ALT Alkaline Phosphatase Troponin T 0.096 H C-Reactive Protein Total Protein Albumin LDL Cholesterol Direct HDL Cholesterol Hepatitis C Antibody Crossmatch 11/12/17 11/12/17 11/12/17 03:21 04:50 06:27 WBC RBC Hgb Hct MCV MCH MCHC RDW Plt Count Lymph % (Auto) [place] % (Auto) Eos % (Auto) Lymph # [place] # Eos # Seg Neutrophils % Seg Neuts % (Manual) Lymphocytes % (Manual) Monocytes % (Manual) Eosinophils % (Manual) Nucleated RBC % Seg Neutrophils # Seg Neutrophils # Man Lymphocytes # (Manual) Monocytes # (Manual) Eosinophils # (Manual) PT INR POC ABG pH POC ABG pCO2 POC ABG pO2 109 H Sodium Potassium Chloride Carbon Dioxide BUN Creatinine Glucose POC Glucose Lactic Acid 3.80 H* 2.20 H* Calcium Magnesium AST ALT Alkaline Phosphatase Troponin T C-Reactive Protein Total Protein Albumin LDL Cholesterol Direct HDL Cholesterol Hepatitis C Antibody Crossmatch 11/12/17 11/12/17 11/12/17 09:24 09:24 09:24 WBC RBC Hgb 10.4 L Hct 33.4 L MCV MCH MCHC RDW Plt Count Lymph % (Auto) [place] % (Auto) Eos % (Auto) Lymph # [place] # Eos # Seg Neutrophils % Seg Neuts % (Manual) Lymphocytes % (Manual) Monocytes % (Manual) Eosinophils % (Manual) Nucleated RBC % Seg Neutrophils # Seg Neutrophils # Man Lymphocytes # (Manual) Monocytes # (Manual) Eosinophils # (Manual) PT INR POC ABG pH POC ABG pCO2 POC ABG pO2 Sodium Potassium Chloride Carbon Dioxide BUN Creatinine Glucose POC Glucose Lactic Acid 2.90 H* Calcium Magnesium AST ALT Alkaline Phosphatase Troponin T 0.091 H C-Reactive Protein Total Protein Albumin LDL Cholesterol Direct HDL Cholesterol Hepatitis C Antibody Crossmatch 11/12/17 11/12/17 11/12/17 12:56 20:03 Unknown WBC RBC Hgb Hct MCV MCH MCHC RDW Plt Count Lymph % (Auto) [place] % (Auto) Eos % (Auto) Lymph # [place] # Eos # Seg Neutrophils % Seg Neuts % (Manual) Lymphocytes % (Manual) Monocytes % (Manual) Eosinophils % (Manual) Nucleated RBC % Seg Neutrophils # Seg Neutrophils # Man Lymphocytes # (Manual) Monocytes # (Manual) Eosinophils # (Manual) PT INR POC ABG pH POC ABG pCO2 POC ABG pO2 Sodium Potassium Chloride Carbon Dioxide BUN Creatinine Glucose POC Glucose Lactic Acid 3.60 H* Calcium Magnesium AST ALT Alkaline Phosphatase Troponin T 0.102 H* 0.156 H* D C-Reactive Protein Total Protein Albumin LDL Cholesterol Direct HDL Cholesterol Hepatitis C Antibody Crossmatch 11/12/17 11/13/17 11/13/17 Unknown 04:50 04:50 WBC 12.2 H RBC 3.51 L Hgb 9.3 L Hct 30.1 L MCV MCH 26 L MCHC 31 L RDW 18.0 H Plt Count 128 L Lymph % (Auto) 8.6 L [place] % (Auto) 11.1 H Eos % (Auto) Lymph # 1.1 L [place] # 1.4 H Eos # Seg Neutrophils % 80.1 H Seg Neuts % (Manual) Lymphocytes % (Manual) Monocytes % (Manual) Eosinophils % (Manual) Nucleated RBC % Seg Neutrophils # 9.8 H Seg Neutrophils # Man Lymphocytes # (Manual) Monocytes # (Manual) Eosinophils # (Manual) PT INR POC ABG pH POC ABG pCO2 POC ABG pO2 Sodium 149 H Potassium 5.1 H Chloride 114.4 H Carbon Dioxide 18 L BUN 52 H Creatinine 3.3 H D Glucose 129 H POC Glucose Lactic Acid Calcium 7.9 L Magnesium AST ALT Alkaline Phosphatase Troponin T 0.098 H C-Reactive Protein Total Protein Albumin LDL Cholesterol Direct HDL Cholesterol Hepatitis C Antibody Crossmatch 11/13/17 11/13/17 11/14/17 04:51 09:34 04:21 WBC RBC Hgb Hct MCV MCH MCHC RDW Plt Count Lymph % (Auto) [place] % (Auto) Eos % (Auto) Lymph # [place] # Eos # Seg Neutrophils % Seg Neuts % (Manual) Lymphocytes % (Manual) Monocytes % (Manual) Eosinophils % (Manual) Nucleated RBC % Seg Neutrophils # Seg Neutrophils # Man Lymphocytes # (Manual) Monocytes # (Manual) Eosinophils # (Manual) PT INR POC ABG pH POC ABG pCO2 30.1 L 29.8 L POC ABG pO2 135 H Sodium Potassium Chloride Carbon Dioxide BUN Creatinine Glucose POC Glucose Lactic Acid 2.10 H* Calcium Magnesium AST ALT Alkaline Phosphatase Troponin T C-Reactive Protein Total Protein Albumin LDL Cholesterol Direct HDL Cholesterol Hepatitis C Antibody Crossmatch 11/15/17 11/15/17 11/16/17 04:52 15:50 05:17 WBC RBC Hgb Hct MCV MCH MCHC RDW Plt Count Lymph % (Auto) [place] % (Auto) Eos % (Auto) Lymph # [place] # Eos # Seg Neutrophils % Seg Neuts % (Manual) Lymphocytes % (Manual) Monocytes % (Manual) Eosinophils % (Manual) Nucleated RBC % Seg Neutrophils # Seg Neutrophils # Man Lymphocytes # (Manual) Monocytes # (Manual) Eosinophils # (Manual) PT INR POC ABG pH POC ABG pCO2 29.5 L 31.5 L POC ABG pO2 115 H 122 H Sodium 154 H Potassium Chloride 117.9 H Carbon Dioxide 19 L BUN 87 H Creatinine 4.1 H Glucose POC Glucose Lactic Acid Calcium 8.1 L Magnesium AST ALT Alkaline Phosphatase Troponin T C-Reactive Protein Total Protein Albumin LDL Cholesterol Direct HDL Cholesterol Hepatitis C Antibody Crossmatch 11/16/17 11/17/17 11/17/17 16:37 04:07 10:00 WBC 14.7 H RBC 3.23 L Hgb 8.3 L Hct 28.1 L MCV MCH 26 L MCHC 30 L RDW 18.8 H Plt Count Lymph % (Auto) [place] % (Auto) Eos % (Auto) Lymph # [place] # Eos # Seg Neutrophils % Seg Neuts % (Manual) 75 H Lymphocytes % (Manual) 8.0 L Monocytes % (Manual) Eosinophils % (Manual) Nucleated RBC % 1.0 H Seg Neutrophils # Seg Neutrophils # Man 11.0 H Lymphocytes # (Manual) Monocytes # (Manual) 0.9 H Eosinophils # (Manual) PT INR POC ABG pH POC ABG pCO2 POC ABG pO2 Sodium 153 H 155 H Potassium Chloride 117.3 H 119.4 H Carbon Dioxide 19 L 20 L BUN 90 H 89 H Creatinine 3.9 H 3.6 H Glucose 111 H 115 H POC Glucose Lactic Acid Calcium 8.1 L 8.0 L Magnesium AST ALT Alkaline Phosphatase Troponin T C-Reactive Protein Total Protein Albumin LDL Cholesterol Direct HDL Cholesterol Hepatitis C Antibody Crossmatch 11/18/17 11/18/17 11/18/17 04:34 04:34 04:34 WBC 15.5 H RBC 3.13 L Hgb 8.1 L Hct 26.3 L MCV MCH 26 L MCHC 31 L RDW 18.6 H Plt Count Lymph % (Auto) [place] % (Auto) Eos % (Auto) Lymph # [place] # Eos # Seg Neutrophils % Seg Neuts % (Manual) 81.0 H Lymphocytes % (Manual) 7.0 L Monocytes % (Manual) Eosinophils % (Manual) Nucleated RBC % 1.0 H Seg Neutrophils # Seg Neutrophils # Man 12.6 H Lymphocytes # (Manual) 1.1 L Monocytes # (Manual) Eosinophils # (Manual) PT 16.7 H INR 1.30 H POC ABG pH POC ABG pCO2 POC ABG pO2 Sodium 155 H Potassium 3.2 L Chloride 121.0 H Carbon Dioxide 20 L BUN 74 H Creatinine 2.9 H Glucose 126 H POC Glucose Lactic Acid Calcium 7.9 L Magnesium AST ALT Alkaline Phosphatase Troponin T C-Reactive Protein Total Protein Albumin LDL Cholesterol Direct HDL Cholesterol Hepatitis C Antibody Crossmatch 11/19/17 11/19/17 11/20/17 04:44 04:44 00:38 WBC 19.0 H 22.2 H RBC 3.20 L 3.17 L Hgb 8.4 L 7.9 L Hct 27.9 L 26.4 L MCV 83 L MCH 26 L 25 L MCHC 30 L 30 L RDW 19.1 H 18.9 H Plt Count Lymph % (Auto) [place] % (Auto) Eos % (Auto) Lymph # [place] # Eos # Seg Neutrophils % Seg Neuts % (Manual) 83.0 H Lymphocytes % (Manual) 3.0 L Monocytes % (Manual) 9.0 H Eosinophils % (Manual) Nucleated RBC % Seg Neutrophils # Seg Neutrophils # Man 18.4 H Lymphocytes # (Manual) 0.7 L Monocytes # (Manual) 2.0 H Eosinophils # (Manual) PT INR POC ABG pH POC ABG pCO2 POC ABG pO2 Sodium 152 H Potassium Chloride 117.1 H Carbon Dioxide 17 L BUN 66 H Creatinine 2.8 H Glucose 119 H POC Glucose Lactic Acid Calcium 7.8 L Magnesium 2.70 H AST ALT Alkaline Phosphatase Troponin T C-Reactive Protein Total Protein Albumin LDL Cholesterol Direct HDL Cholesterol Hepatitis C Antibody Crossmatch 11/20/17 11/20/17 11/20/17 03:29 04:48 13:38 WBC RBC Hgb Hct MCV MCH MCHC RDW Plt Count Lymph % (Auto) [place] % (Auto) Eos % (Auto) Lymph # [place] # Eos # Seg Neutrophils % Seg Neuts % (Manual) Lymphocytes % (Manual) Monocytes % (Manual) Eosinophils % (Manual) Nucleated RBC % Seg Neutrophils # Seg Neutrophils # Man Lymphocytes # (Manual) Monocytes # (Manual) Eosinophils # (Manual) PT INR POC ABG pH POC ABG pCO2 29.4 L POC ABG pO2 Sodium 148 H Potassium 3.4 L Chloride 113.7 H Carbon Dioxide 18 L BUN 59 H Creatinine 2.7 H Glucose 113 H POC Glucose 128 H Lactic Acid Calcium 7.8 L Magnesium AST ALT Alkaline Phosphatase Troponin T C-Reactive Protein Total Protein Albumin LDL Cholesterol Direct HDL Cholesterol Hepatitis C Antibody Crossmatch 11/20/17 11/20/17 11/21/17 17:38 23:40 00:13 WBC RBC Hgb 8.4 L Hct 28.0 L MCV MCH MCHC RDW Plt Count Lymph % (Auto) [place] % (Auto) Eos % (Auto) Lymph # [place] # Eos # Seg Neutrophils % Seg Neuts % (Manual) Lymphocytes % (Manual) Monocytes % (Manual) Eosinophils % (Manual) Nucleated RBC % Seg Neutrophils # Seg Neutrophils # Man Lymphocytes # (Manual) Monocytes # (Manual) Eosinophils # (Manual) PT INR POC ABG pH POC ABG pCO2 POC ABG pO2 Sodium Potassium Chloride Carbon Dioxide BUN Creatinine Glucose POC Glucose 115 H 145 H Lactic Acid Calcium Magnesium AST ALT Alkaline Phosphatase Troponin T C-Reactive Protein Total Protein Albumin LDL Cholesterol Direct HDL Cholesterol Hepatitis C Antibody Crossmatch 11/21/17 11/21/17 11/21/17 04:30 04:30 04:58 WBC 21.0 H RBC Hgb 9.6 L Hct 32.7 L MCV MCH 25 L MCHC 29 L RDW 19.7 H Plt Count 746 H Lymph % (Auto) [place] % (Auto) Eos % (Auto) Lymph # [place] # Eos # Seg Neutrophils % Seg Neuts % (Manual) Lymphocytes % (Manual) Monocytes % (Manual) Eosinophils % (Manual) Nucleated RBC % Seg Neutrophils # Seg Neutrophils # Man Lymphocytes # (Manual) Monocytes # (Manual) Eosinophils # (Manual) PT INR POC ABG pH POC ABG pCO2 POC ABG pO2 Sodium Potassium Chloride 109.4 H Carbon Dioxide 14 L BUN 59 H Creatinine 3.0 H Glucose 137 H POC Glucose 132 H Lactic Acid Calcium 7.6 L Magnesium AST ALT Alkaline Phosphatase Troponin T C-Reactive Protein Total Protein Albumin LDL Cholesterol Direct HDL Cholesterol Hepatitis C Antibody Crossmatch 11/21/17 11/21/17 11/21/17 06:30 13:43 14:17 WBC 38.2 H RBC Hgb 9.0 L Hct 32.3 L MCV MCH 25 L MCHC 28 L RDW 20.0 H Plt Count 766 H Lymph % (Auto) [place] % (Auto) Eos % (Auto) Lymph # [place] # Eos # Seg Neutrophils % Seg Neuts % (Manual) 85.0 H Lymphocytes % (Manual) 1.0 L Monocytes % (Manual) Eosinophils % (Manual) Nucleated RBC % 2.0 H Seg Neutrophils # Seg Neutrophils # Man 32.5 H Lymphocytes # (Manual) 0.4 L Monocytes # (Manual) 2.3 H Eosinophils # (Manual) PT INR POC ABG pH POC ABG pCO2 18.6 L POC ABG pO2 121 H Sodium 146 H Potassium Chloride 110.9 H Carbon Dioxide 11 L BUN 62 H Creatinine 4.0 H Glucose 64 L POC Glucose Lactic Acid Calcium 7.6 L Magnesium AST ALT Alkaline Phosphatase Troponin T C-Reactive Protein Total Protein Albumin LDL Cholesterol Direct HDL Cholesterol Hepatitis C Antibody Crossmatch 11/21/17 11/21/17 11/22/17 14:17 19:09 00:05 WBC RBC Hgb Hct MCV MCH MCHC RDW Plt Count Lymph % (Auto) [place] % (Auto) Eos % (Auto) Lymph # [place] # Eos # Seg Neutrophils % Seg Neuts % (Manual) Lymphocytes % (Manual) Monocytes % (Manual) Eosinophils % (Manual) Nucleated RBC % Seg Neutrophils # Seg Neutrophils # Man Lymphocytes # (Manual) Monocytes # (Manual) Eosinophils # (Manual) PT INR POC ABG pH POC ABG pCO2 20.0 L POC ABG pO2 Sodium Potassium Chloride Carbon Dioxide BUN Creatinine Glucose POC Glucose 127 H Lactic Acid 7.70 H* Calcium Magnesium AST ALT Alkaline Phosphatase Troponin T C-Reactive Protein Total Protein Albumin LDL Cholesterol Direct HDL Cholesterol Hepatitis C Antibody Crossmatch 11/22/17 11/22/17 11/22/17 03:53 06:00 07:25 WBC RBC Hgb Hct MCV MCH MCHC RDW Plt Count Lymph % (Auto) [place] % (Auto) Eos % (Auto) Lymph # [place] # Eos # Seg Neutrophils % Seg Neuts % (Manual) Lymphocytes % (Manual) Monocytes % (Manual) Eosinophils % (Manual) Nucleated RBC % Seg Neutrophils # Seg Neutrophils # Man Lymphocytes # (Manual) Monocytes # (Manual) Eosinophils # (Manual) PT INR POC ABG pH POC ABG pCO2 22.2 L POC ABG pO2 Sodium 147 H Potassium Chloride 111.9 H Carbon Dioxide 16 L BUN 72 H Creatinine 5.1 H Glucose 181 H POC Glucose 180 H Lactic Acid Calcium 7.1 L Magnesium AST ALT Alkaline Phosphatase Troponin T C-Reactive Protein Total Protein Albumin LDL Cholesterol Direct HDL Cholesterol Hepatitis C Antibody Crossmatch 11/22/17 11/22/17 11/22/17 07:25 07:25 12:05 WBC 31.4 H RBC 3.22 L Hgb 8.0 L Hct 26.7 L MCV 83 L MCH 25 L MCHC 30 L RDW 19.4 H Plt Count 602 H Lymph % (Auto) [place] % (Auto) Eos % (Auto) Lymph # [place] # Eos # Seg Neutrophils % Seg Neuts % (Manual) Lymphocytes % (Manual) Monocytes % (Manual) Eosinophils % (Manual) Nucleated RBC % Seg Neutrophils # Seg Neutrophils # Man Lymphocytes # (Manual) Monocytes # (Manual) Eosinophils # (Manual) PT INR POC ABG pH POC ABG pCO2 POC ABG pO2 Sodium Potassium Chloride Carbon Dioxide BUN Creatinine Glucose POC Glucose 182 H Lactic Acid 5.00 H* Calcium Magnesium AST ALT Alkaline Phosphatase Troponin T C-Reactive Protein Total Protein Albumin LDL Cholesterol Direct HDL Cholesterol Hepatitis C Antibody Crossmatch 11/22/17 11/23/17 11/23/17 19:45 01:28 04:56 WBC RBC Hgb Hct MCV MCH MCHC RDW Plt Count Lymph % (Auto) [place] % (Auto) Eos % (Auto) Lymph # [place] # Eos # Seg Neutrophils % Seg Neuts % (Manual) Lymphocytes % (Manual) Monocytes % (Manual) Eosinophils % (Manual) Nucleated RBC % Seg Neutrophils # Seg Neutrophils # Man Lymphocytes # (Manual) Monocytes # (Manual) Eosinophils # (Manual) PT INR POC ABG pH 7.505 H POC ABG pCO2 26.3 L POC ABG pO2 Sodium Potassium Chloride Carbon Dioxide BUN Creatinine Glucose POC Glucose 165 H Lactic Acid Calcium Magnesium AST ALT Alkaline Phosphatase Troponin T C-Reactive Protein Total Protein Albumin LDL Cholesterol Direct HDL Cholesterol Hepatitis C Antibody Reactive A Crossmatch 11/23/17 11/23/17 11/23/17 07:05 12:32 17:53 WBC RBC Hgb Hct MCV MCH MCHC RDW Plt Count Lymph % (Auto) [place] % (Auto) Eos % (Auto) Lymph # [place] # Eos # Seg Neutrophils % Seg Neuts % (Manual) Lymphocytes % (Manual) Monocytes % (Manual) Eosinophils % (Manual) Nucleated RBC % Seg Neutrophils # Seg Neutrophils # Man Lymphocytes # (Manual) Monocytes # (Manual) Eosinophils # (Manual) PT INR POC ABG pH POC ABG pCO2 POC ABG pO2 Sodium Potassium Chloride Carbon Dioxide 18 L BUN 61 H Creatinine 4.2 H Glucose 153 H POC Glucose 138 H 173 H Lactic Acid Calcium 7.5 L Magnesium AST ALT Alkaline Phosphatase Troponin T C-Reactive Protein Total Protein Albumin LDL Cholesterol Direct HDL Cholesterol Hepatitis C Antibody Crossmatch 11/23/17 11/24/17 11/24/17 23:41 05:42 05:42 WBC 21.5 H RBC 2.48 L Hgb 6.2 L Hct 20.3 L D MCV 82 L MCH 25 L MCHC 31 L RDW 18.9 H Plt Count Lymph % (Auto) [place] % (Auto) Eos % (Auto) Lymph # [place] # Eos # Seg Neutrophils % Seg Neuts % (Manual) 94.0 H Lymphocytes % (Manual) 3.0 L Monocytes % (Manual) Eosinophils % (Manual) Nucleated RBC % Seg Neutrophils # Seg Neutrophils # Man 20.2 H Lymphocytes # (Manual) 0.6 L Monocytes # (Manual) Eosinophils # (Manual) PT INR POC ABG pH POC ABG pCO2 POC ABG pO2 Sodium 149 H Potassium 2.8 L* D Chloride 113.9 H Carbon Dioxide 19 L BUN 31 H Creatinine 2.3 H Glucose 103 H POC Glucose 133 H Lactic Acid Calcium 5.3 L* D Magnesium 1.30 L AST ALT Alkaline Phosphatase Troponin T C-Reactive Protein Total Protein Albumin LDL Cholesterol Direct HDL Cholesterol Hepatitis C Antibody Crossmatch 11/24/17 11/24/17 11/24/17 05:42 08:27 08:27 WBC RBC Hgb Hct MCV MCH MCHC RDW Plt Count Lymph % (Auto) [place] % (Auto) Eos % (Auto) Lymph # [place] # Eos # Seg Neutrophils % Seg Neuts % (Manual) Lymphocytes % (Manual) Monocytes % (Manual) Eosinophils % (Manual) Nucleated RBC % Seg Neutrophils # Seg Neutrophils # Man Lymphocytes # (Manual) Monocytes # (Manual) Eosinophils # (Manual) PT INR POC ABG pH POC ABG pCO2 POC ABG pO2 Sodium Potassium Chloride Carbon Dioxide BUN Creatinine Glucose POC Glucose Lactic Acid 5.40 H* 5.20 H* Calcium Magnesium AST ALT Alkaline Phosphatase Troponin T C-Reactive Protein Total Protein Albumin LDL Cholesterol Direct HDL Cholesterol Hepatitis C Antibody Crossmatch See Detail 11/24/17 11/24/17 11/24/17 12:13 17:22 21:53 WBC 23.0 H RBC 3.32 L Hgb 8.8 L Hct 27.1 L D MCV 82 L MCH 26 L MCHC RDW 17.3 H Plt Count Lymph % (Auto) [place] % (Auto) Eos % (Auto) Lymph # [place] # Eos # Seg Neutrophils % Seg Neuts % (Manual) Lymphocytes % (Manual) Monocytes % (Manual) Eosinophils % (Manual) Nucleated RBC % Seg Neutrophils # Seg Neutrophils # Man Lymphocytes # (Manual) Monocytes # (Manual) Eosinophils # (Manual) PT INR POC ABG pH POC ABG pCO2 POC ABG pO2 Sodium Potassium Chloride Carbon Dioxide BUN Creatinine Glucose POC Glucose 138 H 180 H Lactic Acid Calcium Magnesium AST ALT Alkaline Phosphatase Troponin T C-Reactive Protein Total Protein Albumin LDL Cholesterol Direct HDL Cholesterol Hepatitis C Antibody Crossmatch 11/24/17 11/24/17 11/25/17 21:53 23:28 04:19 WBC RBC Hgb Hct MCV MCH MCHC RDW Plt Count Lymph % (Auto) [place] % (Auto) Eos % (Auto) Lymph # [place] # Eos # Seg Neutrophils % Seg Neuts % (Manual) Lymphocytes % (Manual) Monocytes % (Manual) Eosinophils % (Manual) Nucleated RBC % Seg Neutrophils # Seg Neutrophils # Man Lymphocytes # (Manual) Monocytes # (Manual) Eosinophils # (Manual) PT INR POC ABG pH POC ABG pCO2 POC ABG pO2 Sodium Potassium Chloride 96.3 L Carbon Dioxide BUN 28 H 31 H Creatinine 2.3 H 2.6 H Glucose 125 H 101 H POC Glucose 111 H Lactic Acid Calcium 7.5 L D 7.4 L Magnesium AST 170 H ALT 179 H Alkaline Phosphatase 175 H Troponin T C-Reactive Protein Total Protein 5.5 L Albumin 1.8 L LDL Cholesterol Direct HDL Cholesterol Hepatitis C Antibody Crossmatch 11/25/17 11/25/17 11/26/17 04:19 04:19 06:29 WBC 22.5 H RBC 3.48 L Hgb 9.1 L Hct 28.3 L MCV 81 L MCH 26 L MCHC RDW 17.4 H Plt Count Lymph % (Auto) [place] % (Auto) Eos % (Auto) Lymph # [place] # Eos # Seg Neutrophils % Seg Neuts % (Manual) Lymphocytes % (Manual) Monocytes % (Manual) Eosinophils % (Manual) Nucleated RBC % Seg Neutrophils # Seg Neutrophils # Man Lymphocytes # (Manual) Monocytes # (Manual) Eosinophils # (Manual) PT 23.6 H INR 1.96 H POC ABG pH POC ABG pCO2 POC ABG pO2 Sodium Potassium Chloride Carbon Dioxide BUN 31 H Creatinine 2.6 H Glucose 101 H POC Glucose Lactic Acid Calcium 7.5 L Magnesium AST ALT Alkaline Phosphatase Troponin T C-Reactive Protein Total Protein Albumin LDL Cholesterol Direct HDL Cholesterol Hepatitis C Antibody Crossmatch 11/26/17 11/27/17 11/27/17 06:34 04:06 04:06 WBC 11.3 H RBC 3.13 L Hgb 8.4 L Hct 25.8 L MCV 82 L MCH 27 L MCHC RDW 17.7 H Plt Count Lymph % (Auto) 7.4 L [place] % (Auto) Eos % (Auto) Lymph # 0.8 L [place] # Eos # Seg Neutrophils % 83.7 H Seg Neuts % (Manual) Lymphocytes % (Manual) Monocytes % (Manual) Eosinophils % (Manual) Nucleated RBC % Seg Neutrophils # 9.5 H Seg Neutrophils # Man Lymphocytes # (Manual) Monocytes # (Manual) Eosinophils # (Manual) PT INR POC ABG pH POC ABG pCO2 POC ABG pO2 Sodium Potassium Chloride 97.9 L Carbon Dioxide BUN 43 H 29 H Creatinine 3.5 H 2.9 H Glucose POC Glucose Lactic Acid Calcium 7.5 L 8.1 L Magnesium AST ALT Alkaline Phosphatase Troponin T C-Reactive Protein Total Protein Albumin LDL Cholesterol Direct HDL Cholesterol Hepatitis C Antibody Crossmatch 11/27/17 11/28/17 11/28/17 18:11 00:16 03:50 WBC RBC Hgb Hct MCV MCH MCHC RDW Plt Count Lymph % (Auto) [place] % (Auto) Eos % (Auto) Lymph # [place] # Eos # Seg Neutrophils % Seg Neuts % (Manual) Lymphocytes % (Manual) Monocytes % (Manual) Eosinophils % (Manual) Nucleated RBC % Seg Neutrophils # Seg Neutrophils # Man Lymphocytes # (Manual) Monocytes # (Manual) Eosinophils # (Manual) PT INR POC ABG pH POC ABG pCO2 POC ABG pO2 Sodium Potassium Chloride Carbon Dioxide BUN 39 H Creatinine 4.1 H Glucose 108 H POC Glucose 110 H 124 H Lactic Acid Calcium 7.9 L Magnesium AST ALT Alkaline Phosphatase Troponin T C-Reactive Protein Total Protein Albumin LDL Cholesterol Direct HDL Cholesterol Hepatitis C Antibody Crossmatch 11/28/17 11/28/17 11/28/17 05:03 11:36 17:42 WBC RBC Hgb Hct MCV MCH MCHC RDW Plt Count Lymph % (Auto) [place] % (Auto) Eos % (Auto) Lymph # [place] # Eos # Seg Neutrophils % Seg Neuts % (Manual) Lymphocytes % (Manual) Monocytes % (Manual) Eosinophils % (Manual) Nucleated RBC % Seg Neutrophils # Seg Neutrophils # Man Lymphocytes # (Manual) Monocytes # (Manual) Eosinophils # (Manual) PT INR POC ABG pH POC ABG pCO2 POC ABG pO2 Sodium Potassium Chloride Carbon Dioxide BUN Creatinine Glucose POC Glucose 134 H 114 H 119 H Lactic Acid Calcium Magnesium AST ALT Alkaline Phosphatase Troponin T C-Reactive Protein Total Protein Albumin LDL Cholesterol Direct HDL Cholesterol Hepatitis C Antibody Crossmatch 11/29/17 11/29/17 11/29/17 00:22 05:25 05:25 WBC 12.3 H RBC 3.34 L Hgb 8.6 L Hct 27.3 L MCV 82 L MCH 26 L MCHC RDW 18.5 H Plt Count Lymph % (Auto) 3.7 L [place] % (Auto) 7.7 H Eos % (Auto) Lymph # 0.5 L [place] # 1.0 H Eos # Seg Neutrophils % 86.5 H Seg Neuts % (Manual) Lymphocytes % (Manual) Monocytes % (Manual) Eosinophils % (Manual) Nucleated RBC % Seg Neutrophils # 10.7 H Seg Neutrophils # Man Lymphocytes # (Manual) Monocytes # (Manual) Eosinophils # (Manual) PT INR POC ABG pH POC ABG pCO2 POC ABG pO2 Sodium Potassium Chloride Carbon Dioxide BUN 29 H Creatinine 3.5 H Glucose 109 H POC Glucose 137 H Lactic Acid Calcium 7.8 L Magnesium AST ALT Alkaline Phosphatase Troponin T C-Reactive Protein Total Protein Albumin LDL Cholesterol Direct HDL Cholesterol Hepatitis C Antibody Crossmatch 11/29/17 11/30/17 11/30/17 05:26 00:26 04:17 WBC RBC Hgb Hct MCV MCH MCHC RDW Plt Count Lymph % (Auto) [place] % (Auto) Eos % (Auto) Lymph # [place] # Eos # Seg Neutrophils % Seg Neuts % (Manual) Lymphocytes % (Manual) Monocytes % (Manual) Eosinophils % (Manual) Nucleated RBC % Seg Neutrophils # Seg Neutrophils # Man Lymphocytes # (Manual) Monocytes # (Manual) Eosinophils # (Manual) PT INR POC ABG pH POC ABG pCO2 POC ABG pO2 Sodium Potassium Chloride Carbon Dioxide BUN 38 H Creatinine 4.3 H Glucose 109 H POC Glucose 129 H 152 H Lactic Acid Calcium 7.8 L Magnesium AST ALT Alkaline Phosphatase Troponin T C-Reactive Protein Total Protein Albumin LDL Cholesterol Direct HDL Cholesterol Hepatitis C Antibody Crossmatch 11/30/17 11/30/1711/30/18 12:17 16:23 23:35 WBC RBC Hgb Hct MCV MCH MCHC RDW Plt Count Lymph % (Auto) [place] % (Auto) Eos % (Auto) Lymph # [place] # Eos # Seg Neutrophils % Seg Neuts % (Manual) Lymphocytes % (Manual) Monocytes % (Manual) Eosinophils % (Manual) Nucleated RBC % Seg Neutrophils # Seg Neutrophils # Man Lymphocytes # (Manual) Monocytes # (Manual) Eosinophils # (Manual) PT INR POC ABG pH POC ABG pCO2 POC ABG pO2 Sodium Potassium Chloride Carbon Dioxide BUN Creatinine Glucose POC Glucose 170 H 114 H 122 H Lactic Acid Calcium Magnesium AST ALT Alkaline Phosphatase Troponin T C-Reactive Protein Total Protein Albumin LDL Cholesterol Direct HDL Cholesterol Hepatitis C Antibody Crossmatch 12/01/17 12/01/17 12/01/17 04:09 04:09 12:17 WBC 14.1 H RBC 3.32 L Hgb 8.6 L Hct 27.0 L MCV 81 L MCH 26 L MCHC RDW 18.7 H Plt Count Lymph % (Auto) 5.5 L [place] % (Auto) 9.7 H Eos % (Auto) Lymph # 0.8 L [place] # 1.4 H Eos # Seg Neutrophils % 82.9 H Seg Neuts % (Manual) Lymphocytes % (Manual) Monocytes % (Manual) Eosinophils % (Manual) Nucleated RBC % Seg Neutrophils # 11.7 H Seg Neutrophils # Man Lymphocytes # (Manual) Monocytes # (Manual) Eosinophils # (Manual) PT INR POC ABG pH POC ABG pCO2 POC ABG pO2 Sodium Potassium 3.4 L Chloride Carbon Dioxide BUN 21 H Creatinine 3.0 H Glucose 108 H POC Glucose 126 H Lactic Acid Calcium 8.0 L Magnesium AST ALT Alkaline Phosphatase Troponin T C-Reactive Protein Total Protein Albumin LDL Cholesterol Direct HDL Cholesterol Hepatitis C Antibody Crossmatch 12/02/17 12/03/17 12/03/17 23:46 02:52 05:54 WBC 17.2 H RBC 3.21 L Hgb 8.5 L Hct 25.8 L MCV 80 L MCH 26 L MCHC RDW 18.4 H Plt Count 128 L Lymph % (Auto) [place] % (Auto) Eos % (Auto) Lymph # [place] # Eos # Seg Neutrophils % Seg Neuts % (Manual) Lymphocytes % (Manual) Monocytes % (Manual) Eosinophils % (Manual) Nucleated RBC % Seg Neutrophils # Seg Neutrophils # Man Lymphocytes # (Manual) Monocytes # (Manual) Eosinophils # (Manual) PT INR POC ABG pH POC ABG pCO2 POC ABG pO2 Sodium Potassium Chloride Carbon Dioxide BUN Creatinine Glucose POC Glucose 125 H 107 H Lactic Acid Calcium Magnesium AST ALT Alkaline Phosphatase Troponin T C-Reactive Protein Total Protein Albumin LDL Cholesterol Direct HDL Cholesterol Hepatitis C Antibody Crossmatch 12/03/17 12/03/17 12/04/17 12:05 Unknown 12:26 WBC RBC Hgb Hct MCV MCH MCHC RDW Plt Count Lymph % (Auto) [place] % (Auto) Eos % (Auto) Lymph # [place] # Eos # Seg Neutrophils % Seg Neuts % (Manual) Lymphocytes % (Manual) Monocytes % (Manual) Eosinophils % (Manual) Nucleated RBC % Seg Neutrophils # Seg Neutrophils # Man Lymphocytes # (Manual) Monocytes # (Manual) Eosinophils # (Manual) PT INR POC ABG pH POC ABG pCO2 POC ABG pO2 Sodium Potassium Chloride Carbon Dioxide BUN 21 H Creatinine 2.8 H Glucose 113 H POC Glucose 106 H 119 H Lactic Acid Calcium Magnesium AST ALT Alkaline Phosphatase Troponin T C-Reactive Protein Total Protein Albumin LDL Cholesterol Direct HDL Cholesterol Hepatitis C Antibody Crossmatch 12/04/17 12/05/17 12/05/17 17:57 00:52 04:05 WBC RBC 2.96 L Hgb 7.7 L Hct 24.2 L MCV 82 L MCH 26 L MCHC RDW 18.8 H Plt Count 105 L Lymph % (Auto) 10.6 L [place] % (Auto) 12.1 H Eos % (Auto) 5.2 H Lymph # 1.1 L [place] # 1.3 H Eos # 0.5 H Seg Neutrophils % 71.3 H Seg Neuts % (Manual) Lymphocytes % (Manual) Monocytes % (Manual) Eosinophils % (Manual) Nucleated RBC % Seg Neutrophils # Seg Neutrophils # Man Lymphocytes # (Manual) Monocytes # (Manual) Eosinophils # (Manual) PT INR POC ABG pH POC ABG pCO2 POC ABG pO2 Sodium Potassium Chloride Carbon Dioxide BUN Creatinine Glucose POC Glucose 140 H 117 H Lactic Acid Calcium Magnesium AST ALT Alkaline Phosphatase Troponin T C-Reactive Protein Total Protein Albumin LDL Cholesterol Direct HDL Cholesterol Hepatitis C Antibody Crossmatch 12/05/17 12/05/17 12/06/17 04:05 22:50 08:18 WBC RBC 2.80 L Hgb 7.4 L Hct 23.0 L MCV 82 L MCH 27 L MCHC RDW 19.5 H Plt Count 125 L Lymph % (Auto) [place] % (Auto) Eos % (Auto) Lymph # [place] # Eos # Seg Neutrophils % Seg Neuts % (Manual) Lymphocytes % (Manual) Monocytes % (Manual) Eosinophils % (Manual) Nucleated RBC % Seg Neutrophils # Seg Neutrophils # Man Lymphocytes # (Manual) Monocytes # (Manual) Eosinophils # (Manual) PT INR POC ABG pH POC ABG pCO2 POC ABG pO2 Sodium Potassium Chloride 107.4 H Carbon Dioxide BUN Creatinine 2.5 H Glucose POC Glucose 112 H Lactic Acid Calcium 8.3 L Magnesium AST ALT Alkaline Phosphatase Troponin T C-Reactive Protein Total Protein Albumin LDL Cholesterol Direct HDL Cholesterol Hepatitis C Antibody Crossmatch 12/06/17 12/06/17 12/06/17 08:18 12:01 23:58 WBC RBC Hgb Hct MCV MCH MCHC RDW Plt Count Lymph % (Auto) [place] % (Auto) Eos % (Auto) Lymph # [place] # Eos # Seg Neutrophils % Seg Neuts % (Manual) Lymphocytes % (Manual) Monocytes % (Manual) Eosinophils % (Manual) Nucleated RBC % Seg Neutrophils # Seg Neutrophils # Man Lymphocytes # (Manual) Monocytes # (Manual) Eosinophils # (Manual) PT INR POC ABG pH POC ABG pCO2 POC ABG pO2 Sodium Potassium Chloride 108.4 H Carbon Dioxide BUN 28 H Creatinine 3.7 H Glucose 103 H POC Glucose 106 H 108 H Lactic Acid Calcium 8.0 L Magnesium AST ALT Alkaline Phosphatase Troponin T C-Reactive Protein Total Protein Albumin LDL Cholesterol Direct HDL Cholesterol Hepatitis C Antibody Crossmatch 12/07/17 12/07/17 12/07/17 05:47 05:47 18:03 WBC RBC 2.79 L Hgb 7.3 L Hct 22.8 L MCV 82 L MCH 26 L MCHC RDW 19.1 H Plt Count 101 L Lymph % (Auto) [place] % (Auto) Eos % (Auto) Lymph # [place] # Eos # Seg Neutrophils % Seg Neuts % (Manual) 72.0 H Lymphocytes % (Manual) 13.0 L Monocytes % (Manual) Eosinophils % (Manual) 9.0 H Nucleated RBC % Seg Neutrophils # Seg Neutrophils # Man Lymphocytes # (Manual) 1.1 L Monocytes # (Manual) Eosinophils # (Manual) 0.8 H PT INR POC ABG pH POC ABG pCO2 POC ABG pO2 Sodium 146 H Potassium Chloride 109.8 H Carbon Dioxide BUN 36 H Creatinine 4.0 H Glucose POC Glucose 143 H Lactic Acid Calcium 8.0 L Magnesium AST ALT Alkaline Phosphatase Troponin T C-Reactive Protein Total Protein Albumin LDL Cholesterol Direct HDL Cholesterol Hepatitis C Antibody Crossmatch 12/07/17 12/08/17 12/08/17 23:33 05:10 05:10 WBC RBC 2.91 L Hgb 7.5 L Hct 24.4 L MCV MCH 26 L MCHC 31 L RDW 19.7 H Plt Count 109 L Lymph % (Auto) [place] % (Auto) Eos % (Auto) Lymph # [place] # Eos # Seg Neutrophils % Seg Neuts % (Manual) Lymphocytes % (Manual) 11.0 L Monocytes % (Manual) Eosinophils % (Manual) 12.0 H Nucleated RBC % Seg Neutrophils # Seg Neutrophils # Man Lymphocytes # (Manual) 0.7 L Monocytes # (Manual) Eosinophils # (Manual) 0.7 H PT INR POC ABG pH POC ABG pCO2 POC ABG pO2 Sodium 147 H Potassium Chloride 110.4 H Carbon Dioxide BUN Creatinine 2.8 H Glucose POC Glucose 107 H Lactic Acid Calcium 7.8 L Magnesium AST ALT Alkaline Phosphatase Troponin T C-Reactive Protein Total Protein Albumin LDL Cholesterol Direct HDL Cholesterol Hepatitis C Antibody Crossmatch 12/09/17 12/09/17 12/09/17 04:18 04:18 12:16 WBC RBC Hgb 7.2 L Hct 23.2 L MCV MCH MCHC RDW Plt Count Lymph % (Auto) [place] % (Auto) Eos % (Auto) Lymph # [place] # Eos # Seg Neutrophils % Seg Neuts % (Manual) Lymphocytes % (Manual) Monocytes % (Manual) Eosinophils % (Manual) Nucleated RBC % Seg Neutrophils # Seg Neutrophils # Man Lymphocytes # (Manual) Monocytes # (Manual) Eosinophils # (Manual) PT INR POC ABG pH POC ABG pCO2 POC ABG pO2 Sodium 150 H Potassium Chloride 114.5 H Carbon Dioxide BUN 25 H Creatinine 3.3 H Glucose POC Glucose 142 H Lactic Acid Calcium 7.7 L Magnesium AST ALT Alkaline Phosphatase Troponin T C-Reactive Protein Total Protein Albumin LDL Cholesterol Direct HDL Cholesterol Hepatitis C Antibody Crossmatch 12/10/17 12/10/17 12/11/17 05:14 05:14 12:05 WBC RBC 2.81 L Hgb 7.4 L Hct 23.9 L MCV MCH 26 L MCHC 31 L RDW 19.1 H Plt Count 128 L Lymph % (Auto) [place] % (Auto) Eos % (Auto) Lymph # [place] # Eos # Seg Neutrophils % Seg Neuts % (Manual) 78.0 H Lymphocytes % (Manual) 8.0 L Monocytes % (Manual) Eosinophils % (Manual) 5.0 H Nucleated RBC % Seg Neutrophils # Seg Neutrophils # Man Lymphocytes # (Manual) 0.6 L Monocytes # (Manual) Eosinophils # (Manual) PT INR POC ABG pH POC ABG pCO2 POC ABG pO2 Sodium Potassium Chloride Carbon Dioxide BUN Creatinine 2.2 H Glucose POC Glucose 127 H Lactic Acid Calcium 7.8 L Magnesium AST ALT Alkaline Phosphatase Troponin T C-Reactive Protein Total Protein Albumin LDL Cholesterol Direct HDL Cholesterol Hepatitis C Antibody Crossmatch 12/11/17 12/11/17 12/11/17 15:26 18:36 23:40 WBC RBC Hgb Hct MCV MCH MCHC RDW Plt Count Lymph % (Auto) [place] % (Auto) Eos % (Auto) Lymph # [place] # Eos # Seg Neutrophils % Seg Neuts % (Manual) Lymphocytes % (Manual) Monocytes % (Manual) Eosinophils % (Manual) Nucleated RBC % Seg Neutrophils # Seg Neutrophils # Man Lymphocytes # (Manual) Monocytes # (Manual) Eosinophils # (Manual) PT INR POC ABG pH POC ABG pCO2 POC ABG pO2 Sodium Potassium 3.3 L Chloride Carbon Dioxide BUN Creatinine 1.6 H Glucose POC Glucose 106 H 110 H Lactic Acid Calcium 7.6 L Magnesium AST ALT Alkaline Phosphatase Troponin T C-Reactive Protein Total Protein Albumin LDL Cholesterol Direct HDL Cholesterol Hepatitis C Antibody Crossmatch 12/12/17 12/12/17 12/12/17 05:10 05:41 05:41 WBC RBC 3.17 L Hgb 8.1 L Hct 25.7 L MCV 81 L MCH 25 L MCHC 31 L RDW 19.2 H Plt Count Lymph % (Auto) [place] % (Auto) Eos % (Auto) Lymph # [place] # Eos # Seg Neutrophils % Seg Neuts % (Manual) 74.0 H Lymphocytes % (Manual) 6.0 L Monocytes % (Manual) Eosinophils % (Manual) 9.0 H Nucleated RBC % Seg Neutrophils # Seg Neutrophils # Man Lymphocytes # (Manual) 0.6 L Monocytes # (Manual) Eosinophils # (Manual) 0.9 H PT INR POC ABG pH POC ABG pCO2 POC ABG pO2 Sodium Potassium 3.5 L Chloride Carbon Dioxide BUN Creatinine 2.3 H Glucose 113 H POC Glucose 112 H Lactic Acid Calcium 7.5 L Magnesium AST ALT Alkaline Phosphatase Troponin T C-Reactive Protein Total Protein Albumin LDL Cholesterol Direct HDL Cholesterol Hepatitis C Antibody Crossmatch 12/13/17 06:14 WBC RBC Hgb Hct MCV MCH MCHC RDW Plt Count Lymph % (Auto) [place] % (Auto) Eos % (Auto) Lymph # [place] # Eos # Seg Neutrophils % Seg Neuts % (Manual) Lymphocytes % (Manual) Monocytes % (Manual) Eosinophils % (Manual) Nucleated RBC % Seg Neutrophils # Seg Neutrophils # Man Lymphocytes # (Manual) Monocytes # (Manual) Eosinophils # (Manual) PT INR POC ABG pH POC ABG pCO2 POC ABG pO2 Sodium Potassium Chloride Carbon Dioxide BUN Creatinine Glucose POC Glucose 130 H Lactic Acid Calcium Magnesium AST ALT Alkaline Phosphatase Troponin T C-Reactive Protein Total Protein Albumin LDL Cholesterol Direct HDL Cholesterol Hepatitis C Antibody Crossmatch
[2017-12-13] MEDS: MERREM 1,000 MG in NACL 0.9% 100 ML IV SCH (11:09)
[2017-12-13] MEDS: LOPRESSOR PO SCH ×2 (11:09→21:11)
[2017-12-13] MEDS: DIFLUCAN FEEDTUBE SCH (11:10)
[2017-12-13] MEDS: PREVACID SOLUTAB FEEDTUBE SCH ×2 (11:10→21:11)
--- NOTE | 2017-12-13 15:06 | Progress Note ---
Assessment and Plan Peritonitis and possible intra-abdominal abscess - likely from dislodged peg tube - removed PEG tube on 11/22 - peritoneal Fluid positive for Enterobacter, Heather (non albicans) - Antibiotic managed by ID - s/p multiple intraabdominal drainages placed by IR and GS. also had abdominal washout by GS - last drainage was placed on 12/06 by IR - plan to remove at least two drainage on Thursday Acute on chronic respiratory failure with hypoxia - likely due to aspiration and PNA - Status post tracheostomy, currently on T-piece - Pulmonology following Severe sepsis with shock likely secondary to aspiration pneumonia -Off IV pressors -Blood and sputum cultures negative Aspiration pneumonia with mucus plugging -treated with zosyn Acute kidney injury secondary to ATN -on Intermittent HD started on 11/23/17 with vascath -Creatinine level improved -Nephrology following Anemia of acute loss secondary to gastric ulcer and gastritis -Status post EGD on 11/18/2017 -Status post blood transfusion -H/H stable, will monitor Acute encephalopathy, likely multifactorial -Will continue to monitor clinically -Prognosis is poor Hypernatremia -Resolved Hypokalemia -We cont to monitor level and replete as needed Hypomagnesemia -Resolved status post repletion Oropharyngeal dysphagia -Status post PEG tube placement on 11/06, now removed -On tube feeding with dobhoff History of recent CVA -Not on aspirin due to recent bleed RT ICA stenosis -s/p recent endarterectomy Disposition: Patient overall prognosis remains poor. Continue management Brief History 67yo M with history CVA, a PEG tube placed by GI on 11/06 presented (11/12) from rehab for respiratory failure, sepsis, hypotension and multilober PNA. Recent work-up for hypotension showed a dislodged PEG tube on CT scan with extraluminal PO contrast that was limited to the upper abdomen and left gutter. Pt had an EGD on 11/18 that did not show the PEG button or an obvious hole in the stomach. There was no free air noted on CXR's. Pt had IR guided drainage placed in the 3 different locations of abdomen. He is now s/p trach by ENT. Recent Ct abdoemn/pelvis on 12/04/17 showed persistent abdominal collection of abscess/fluid and s/p repeat drainage 12/06/17 Hospitalist Physical General appearance: Present: no acute distress - EENT Eyes: Present: PERRL ENT: clear oral mucosa - Neck Neck: Present: supple, other (status post tracheostomy on T-piece) - Respiratory Respiratory effort: normal Respiratory: bilateral: CTA - Cardiovascular Rhythm: other (tachycardia) Heart Sounds: Present: S1 & S2 - Extremities Extremity abnormal: edema (in BLE) - Abdominal General gastrointestinal: non-distended, distended, normal bowel sounds, other ( firm on palpation), total [address] on the left side of - Neurologic Neurologic: other (patient is awake but unable to follow commands) Subjective Date of service: 12/13/17 Principal diagnosis: Acute hypoxic respiratory failure, s/p Trach Interval history: Pt seen and examined, nonverbal No acute event reported by RN discussed plan of care with RN at bedside drainage significantly reduced and Improving clinically Objective - Constitutional Vitals: Vital Signs - 12hr 12/13/17 12/13/17 12/13/17 04:00 05:00 06:00 Temperature 98.7 F Pulse Rate 112 H 94 H 95 H Respiratory 15 26 H 26 H Rate Blood Pressure 135/93 105/61 111/69 O2 Sat by Pulse 99 100 100 Oximetry O2 Sat by Pulse Oximetry [ Assessment] 12/13/17 12/13/17 12/13/17 07:00 08:00 08:51 Temperature 97.8 F Pulse Rate 97 H 96 H Respiratory 24 27 H Rate Blood Pressure 118/69 126/74 O2 Sat by Pulse 99 100 Oximetry O2 Sat by Pulse 100 Oximetry [ Assessment] 12/13/17 12/13/17 12/13/17 09:00 09:01 10:00 Temperature Pulse Rate 94 H 94 H Respiratory 24 25 H Rate Blood Pressure 117/72 122/72 O2 Sat by Pulse 100 100 100 Oximetry O2 Sat by Pulse Oximetry [ Assessment] 12/13/17 12/13/17 12/13/17 11:00 11:09 12:00 Temperature 98.4 F Pulse Rate 102 H 98 H 88 Respiratory 29 H 26 H Rate Blood Pressure 140/78 142/85 O2 Sat by Pulse 100 100 Oximetry O2 Sat by Pulse Oximetry [ Assessment] 12/13/17 12/13/17 13:00 14:00 Temperature Pulse Rate 86 93 H Respiratory 25 H 27 H Rate Blood Pressure 132/75 144/82 O2 Sat by Pulse 100 100 Oximetry O2 Sat by Pulse Oximetry [ Assessment] - Labs CBC & Chem 7: 12/12/17 05:41 12/14/17 05:11 Labs: Abnormal lab results 12/13/17 12/13/17 Range/Units 06:14 12:00 POC Glucose 130 H 133 H (70-105)
[2017-12-13] MEDS: D5NS 0.2% 1,000 ML IV SCH (16:20)
[2017-12-14] MEDS: D5NS 0.2% 1,000 ML IV SCH (06:07)
[2017-12-14 06:13] LABS: INR 1.17 (0.87-1.13)
[2017-12-14 06:32] LABS: Calcium 7.2 mg/dL (8.4-10.2)
[2017-12-14 09:42] LABS: Basophils # (Auto) 0.1 K/mm3 (0.0-0.1); Basophils % (Auto) 0.6 % (0.0-1.8); Eosinophils % (Auto) 8.3 % (0.0-4.3); Lymphocytes # (Auto) 0.9 K/mm3 (1.2-5.4); Mean Corpuscular HGB Conc 30 % (32-34); Mean Corpuscular Volume 79 fl (84-94); Monocytes # (Auto) 1.1 K/mm3 (0.0-0.8); Monocytes % (Auto) 8.9 % (0.0-7.3); Platelet Count 131 K/mm3 (140-440); Red Blood Count 2.48 M/mm3 (3.65-5.03); Red Cell Distribution Width 18.5 % (13.2-15.2)
[2017-12-14 09:52] LABS: Hematocrit 24.4 % (35.5-45.6); Mean Corpuscular Hemoglobin 24 pg (28-32)
--- NOTE | 2017-12-14 11:11 | Progress Note ---
Assessment and Plan 67 y/o male with acute on chronic respiratory failure, now trached, with peritonitis from dislodged peg tube s/p 2 IR drains now with NGT feedings now spiking fevers again. 1. Trach Care 2. IV abx therapy 3. Follow up repeat H/H after HD and transfusion per primary team 4. Will continue to follow Subjective Date of service: 12/14/17 Principal diagnosis: Acute hypoxic respiratory failure, s/p Trach Interval history: Currently on HD. BP stable. No BM's documented that were bright red. Nursing concerned as HgB was checked and it came back at 6.0. Patient has been transfused during this hospital stay, looks like on 11/24. Objective Vital Signs - 12hr 12/14/17 12/14/17 12/14/17 00:00 01:00 02:00 Temperature 98.8 F Pulse Rate 90 90 91 H Respiratory 31 H 29 H 27 H Rate Blood Pressure 145/86 145/86 141/83 O2 Sat by Pulse 100 100 99 Oximetry O2 Sat by Pulse Oximetry [ Assessment] 12/14/17 12/14/17 12/14/17 03:00 04:00 05:00 Temperature 99.3 F Pulse Rate 81 77 89 Respiratory 27 H 25 H 28 H Rate Blood Pressure 141/83 132/69 148/84 O2 Sat by Pulse 100 100 100 Oximetry O2 Sat by Pulse Oximetry [ Assessment] 12/14/17 12/14/17 12/14/17 06:00 07:00 07:43 Temperature Pulse Rate 89 89 Respiratory 28 H 11 L Rate Blood Pressure 120/83 134/79 O2 Sat by Pulse 98 94 Oximetry O2 Sat by Pulse Oximetry [ Assessment] 12/14/17 12/14/17 12/14/17 07:45 08:00 09:10 Temperature 98.8 F 98.2 F Pulse Rate 73 Respiratory 22 Rate Blood Pressure 136/72 O2 Sat by Pulse Oximetry O2 Sat by Pulse 100 Oximetry [ Assessment] 12/14/17 12/14/17 12/14/17 09:15 09:30 09:45 Temperature Pulse Rate 83 78 91 H Respiratory Rate Blood Pressure 142/70 147/77 147/77 O2 Sat by Pulse Oximetry O2 Sat by Pulse Oximetry [ Assessment] 12/14/17 12/14/17 12/14/17 10:00 10:15 10:30 Temperature Pulse Rate 73 83 91 H Respiratory Rate Blood Pressure 146/70 145/72 151/89 O2 Sat by Pulse Oximetry O2 Sat by Pulse Oximetry [ Assessment] 12/14/17 12/14/17 10:45 11:00 Temperature Pulse Rate 95 H 99 H Respiratory Rate Blood Pressure 161/80 132/74 O2 Sat by Pulse Oximetry O2 Sat by Pulse Oximetry [ Assessment] Constitutional: no acute distress, alert Eyes: non-icteric ENT: oropharynx moist Neck: supple (trach in position), no JVD Effort: normal Ascultation: Bilateral: clear Cardiovascular: regular rate and rhythm Gastrointestinal: normoactive bowel sounds, soft, non-tender, other (drainages in place) Integumentary: normal Extremities: no cyanosis, pink and warm, anasarca Neurologic: other (L hemiparesis,awake, response to my voice) Psychiatric: other (unable to assess) CBC and BMP: 12/14/17 Unknown 12/14/17 05:11 ABG, PT/INR, D-dimer: ABG POC ABG pH 7.505 (7.35-7.45) H 11/23/17 04:56 POC ABG pCO2 26.3 (35-45) L 11/23/17 04:56 POC ABG pO2 100 (80-105) 11/23/17 04:56 POC ABG HCO3 20.8 11/23/17 04:56 POC ABG Total CO2 22 11/23/17 04:56 POC ABG O2 Sat 98 11/23/17 04:56 PT/INR, D-dimer PT 15.4 Sec. (12.2-14.9) H 12/14/17 05:11 INR 1.17 (0.87-1.13) H 12/14/17 05:11 Abnormal lab findings: Abnormal Labs 11/11/17 11/11/17 11/11/17 23:18 23:20 23:20 WBC RBC Hgb 10.4 L Hct 32.6 L D MCV MCH 27 L MCHC RDW 17.4 H Plt Count 105 L Lymph % (Auto) Burke % (Auto) Eos % (Auto) Lymph # Burke # Eos # Seg Neutrophils % Seg Neuts % (Manual) Lymphocytes % (Manual) 8.0 L Monocytes % (Manual) Eosinophils % (Manual) Nucleated RBC % 1.0 H Seg Neutrophils # Seg Neutrophils # Man Lymphocytes # (Manual) 0.7 L Monocytes # (Manual) Eosinophils # (Manual) PT INR POC ABG pH 7.550 H POC ABG pCO2 31.6 L POC ABG pO2 Sodium 146 H Potassium Chloride Carbon Dioxide BUN 26 H Creatinine 1.7 H D Glucose 133 H POC Glucose Lactic Acid Calcium Magnesium AST ALT Alkaline Phosphatase Troponin T 0.117 H* C-Reactive Protein Total Protein Albumin 2.5 L LDL Cholesterol Direct 42 L HDL Cholesterol 24 L Hepatitis C Antibody Crossmatch 11/11/17 11/12/17 11/12/17 23:20 00:23 00:23 WBC RBC Hgb Hct MCV MCH MCHC RDW Plt Count Lymph % (Auto) Burke % (Auto) Eos % (Auto) Lymph # Burke # Eos # Seg Neutrophils % Seg Neuts % (Manual) Lymphocytes % (Manual) Monocytes % (Manual) Eosinophils % (Manual) Nucleated RBC % Seg Neutrophils # Seg Neutrophils # Man Lymphocytes # (Manual) Monocytes # (Manual) Eosinophils # (Manual) PT 16.7 H INR 1.28 H POC ABG pH POC ABG pCO2 POC ABG pO2 Sodium Potassium Chloride Carbon Dioxide BUN Creatinine Glucose POC Glucose Lactic Acid 3.20 H* Calcium Magnesium AST ALT Alkaline Phosphatase Troponin T C-Reactive Protein 25.70 H Total Protein Albumin LDL Cholesterol Direct HDL Cholesterol Hepatitis C Antibody Crossmatch 11/12/17 11/12/17 11/12/17 00:46 01:27 01:27 WBC RBC Hgb Hct MCV MCH MCHC RDW Plt Count Lymph % (Auto) [place] % (Auto) Eos % (Auto) Lymph # Burke # Eos # Seg Neutrophils % Seg Neuts % (Manual) Lymphocytes % (Manual) Monocytes % (Manual) Eosinophils % (Manual) Nucleated RBC % Seg Neutrophils # Seg Neutrophils # Man Lymphocytes # (Manual) Monocytes # (Manual) Eosinophils # (Manual) PT INR POC ABG pH 7.495 H POC ABG pCO2 32.0 L POC ABG pO2 64 L Sodium Potassium Chloride Carbon Dioxide BUN Creatinine Glucose POC Glucose Lactic Acid 3.70 H* Calcium Magnesium AST ALT Alkaline Phosphatase Troponin T 0.096 H C-Reactive Protein Total Protein Albumin LDL Cholesterol Direct HDL Cholesterol Hepatitis C Antibody Crossmatch 11/12/17 11/12/17 11/12/17 03:21 04:50 06:27 WBC RBC Hgb Hct MCV MCH MCHC RDW Plt Count Lymph % (Auto) [place] % (Auto) Eos % (Auto) Lymph # [place] # Eos # Seg Neutrophils % Seg Neuts % (Manual) Lymphocytes % (Manual) Monocytes % (Manual) Eosinophils % (Manual) Nucleated RBC % Seg Neutrophils # Seg Neutrophils # Man Lymphocytes # (Manual) Monocytes # (Manual) Eosinophils # (Manual) PT INR POC ABG pH POC ABG pCO2 POC ABG pO2 109 H Sodium Potassium Chloride Carbon Dioxide BUN Creatinine Glucose POC Glucose Lactic Acid 3.80 H* 2.20 H* Calcium Magnesium AST ALT Alkaline Phosphatase Troponin T C-Reactive Protein Total Protein Albumin LDL Cholesterol Direct HDL Cholesterol Hepatitis C Antibody Crossmatch 11/12/17 11/12/17 11/12/17 09:24 09:24 09:24 WBC RBC Hgb 10.4 L Hct 33.4 L MCV MCH MCHC RDW Plt Count Lymph % (Auto) [place] % (Auto) Eos % (Auto) Lymph # [place] # Eos # Seg Neutrophils % Seg Neuts % (Manual) Lymphocytes % (Manual) Monocytes % (Manual) Eosinophils % (Manual) Nucleated RBC % Seg Neutrophils # Seg Neutrophils # Man Lymphocytes # (Manual) Monocytes # (Manual) Eosinophils # (Manual) PT INR POC ABG pH POC ABG pCO2 POC ABG pO2 Sodium Potassium Chloride Carbon Dioxide BUN Creatinine Glucose POC Glucose Lactic Acid 2.90 H* Calcium Magnesium AST ALT Alkaline Phosphatase Troponin T 0.091 H C-Reactive Protein Total Protein Albumin LDL Cholesterol Direct HDL Cholesterol Hepatitis C Antibody Crossmatch 11/12/17 11/12/17 11/12/17 12:56 20:03 Unknown WBC RBC Hgb Hct MCV MCH MCHC RDW Plt Count Lymph % (Auto) [place] % (Auto) Eos % (Auto) Lymph # [place] # Eos # Seg Neutrophils % Seg Neuts % (Manual) Lymphocytes % (Manual) Monocytes % (Manual) Eosinophils % (Manual) Nucleated RBC % Seg Neutrophils # Seg Neutrophils # Man Lymphocytes # (Manual) Monocytes # (Manual) Eosinophils # (Manual) PT INR POC ABG pH POC ABG pCO2 POC ABG pO2 Sodium Potassium Chloride Carbon Dioxide BUN Creatinine Glucose POC Glucose Lactic Acid 3.60 H* Calcium Magnesium AST ALT Alkaline Phosphatase Troponin T 0.102 H* 0.156 H* D C-Reactive Protein Total Protein Albumin LDL Cholesterol Direct HDL Cholesterol Hepatitis C Antibody Crossmatch 08/2311/13/17 11/13/17 Unknown 04:50 04:50 WBC 12.2 H RBC 3.51 L Hgb 9.3 L Hct 30.1 L MCV MCH 26 L MCHC 31 L RDW 18.0 H Plt Count 128 L Lymph % (Auto) 8.6 L Burke % (Auto) 11.1 H Eos % (Auto) Lymph # 1.1 L Burke # 1.4 H Eos # Seg Neutrophils % 80.1 H Seg Neuts % (Manual) Lymphocytes % (Manual) Monocytes % (Manual) Eosinophils % (Manual) Nucleated RBC % Seg Neutrophils # 9.8 H Seg Neutrophils # Man Lymphocytes # (Manual) Monocytes # (Manual) Eosinophils # (Manual) PT INR POC ABG pH POC ABG pCO2 POC ABG pO2 Sodium 149 H Potassium 5.1 H Chloride 114.4 H Carbon Dioxide 18 L BUN 52 H Creatinine 3.3 H D Glucose 129 H POC Glucose Lactic Acid Calcium 7.9 L Magnesium AST ALT Alkaline Phosphatase Troponin T 0.098 H C-Reactive Protein Total Protein Albumin LDL Cholesterol Direct HDL Cholesterol Hepatitis C Antibody Crossmatch 11/13/17 11/13/17 11/14/17 04:51 09:34 04:21 WBC RBC Hgb Hct MCV MCH MCHC RDW Plt Count Lymph % (Auto) [place] % (Auto) Eos % (Auto) Lymph # Burke # Eos # Seg Neutrophils % Seg Neuts % (Manual) Lymphocytes % (Manual) Monocytes % (Manual) Eosinophils % (Manual) Nucleated RBC % Seg Neutrophils # Seg Neutrophils # Man Lymphocytes # (Manual) Monocytes # (Manual) Eosinophils # (Manual) PT INR POC ABG pH POC ABG pCO2 30.1 L 29.8 L POC ABG pO2 135 H Sodium Potassium Chloride Carbon Dioxide BUN Creatinine Glucose POC Glucose Lactic Acid 2.10 H* Calcium Magnesium AST ALT Alkaline Phosphatase Troponin T C-Reactive Protein Total Protein Albumin LDL Cholesterol Direct HDL Cholesterol Hepatitis C Antibody Crossmatch 11/15/17 11/15/17 11/16/17 04:52 15:50 05:17 WBC RBC Hgb Hct MCV MCH MCHC RDW Plt Count Lymph % (Auto) [place] % (Auto) Eos % (Auto) Lymph # [place] # Eos # Seg Neutrophils % Seg Neuts % (Manual) Lymphocytes % (Manual) Monocytes % (Manual) Eosinophils % (Manual) Nucleated RBC % Seg Neutrophils # Seg Neutrophils # Man Lymphocytes # (Manual) Monocytes # (Manual) Eosinophils # (Manual) PT INR POC ABG pH POC ABG pCO2 29.5 L 31.5 L POC ABG pO2 115 H 122 H Sodium 154 H Potassium Chloride 117.9 H Carbon Dioxide 19 L BUN 87 H Creatinine 4.1 H Glucose POC Glucose Lactic Acid Calcium 8.1 L Magnesium AST ALT Alkaline Phosphatase Troponin T C-Reactive Protein Total Protein Albumin LDL Cholesterol Direct HDL Cholesterol Hepatitis C Antibody Crossmatch 11/16/17 11/17/17 11/17/17 16:37 04:07 10:00 WBC 14.7 H RBC 3.23 L Hgb 8.3 L Hct 28.1 L MCV MCH 26 L MCHC 30 L RDW 18.8 H Plt Count Lymph % (Auto) [place] % (Auto) Eos % (Auto) Lymph # [place] # Eos # Seg Neutrophils % Seg Neuts % (Manual) 75 H Lymphocytes % (Manual) 8.0 L Monocytes % (Manual) Eosinophils % (Manual) Nucleated RBC % 1.0 H Seg Neutrophils # Seg Neutrophils # Man 11.0 H Lymphocytes # (Manual) Monocytes # (Manual) 0.9 H Eosinophils # (Manual) PT INR POC ABG pH POC ABG pCO2 POC ABG pO2 Sodium 153 H 155 H Potassium Chloride 117.3 H 119.4 H Carbon Dioxide 19 L 20 L BUN 90 H 89 H Creatinine 3.9 H 3.6 H Glucose 111 H 115 H POC Glucose Lactic Acid Calcium 8.1 L 8.0 L Magnesium AST ALT Alkaline Phosphatase Troponin T C-Reactive Protein Total Protein Albumin LDL Cholesterol Direct HDL Cholesterol Hepatitis C Antibody Crossmatch 11/18/17 11/18/17 11/18/17 04:34 04:34 04:34 WBC 15.5 H RBC 3.13 L Hgb 8.1 L Hct 26.3 L MCV MCH 26 L MCHC 31 L RDW 18.6 H Plt Count Lymph % (Auto) [place] % (Auto) Eos % (Auto) Lymph # [place] # Eos # Seg Neutrophils % Seg Neuts % (Manual) 81.0 H Lymphocytes % (Manual) 7.0 L Monocytes % (Manual) Eosinophils % (Manual) Nucleated RBC % 1.0 H Seg Neutrophils # Seg Neutrophils # Man 12.6 H Lymphocytes # (Manual) 1.1 L Monocytes # (Manual) Eosinophils # (Manual) PT 16.7 H INR 1.30 H POC ABG pH POC ABG pCO2 POC ABG pO2 Sodium 155 H Potassium 3.2 L Chloride 121.0 H Carbon Dioxide 20 L BUN 74 H Creatinine 2.9 H Glucose 126 H POC Glucose Lactic Acid Calcium 7.9 L Magnesium AST ALT Alkaline Phosphatase Troponin T C-Reactive Protein Total Protein Albumin LDL Cholesterol Direct HDL Cholesterol Hepatitis C Antibody Crossmatch 11/19/17 11/19/17 11/20/17 04:44 04:44 00:38 WBC 19.0 H 22.2 H RBC 3.20 L 3.17 L Hgb 8.4 L 7.9 L Hct 27.9 L 26.4 L MCV 83 L MCH 26 L 25 L MCHC 30 L 30 L RDW 19.1 H 18.9 H Plt Count Lymph % (Auto) [place] % (Auto) Eos % (Auto) Lymph # [place] # Eos # Seg Neutrophils % Seg Neuts % (Manual) 83.0 H Lymphocytes % (Manual) 3.0 L Monocytes % (Manual) 9.0 H Eosinophils % (Manual) Nucleated RBC % Seg Neutrophils # Seg Neutrophils # Man 18.4 H Lymphocytes # (Manual) 0.7 L Monocytes # (Manual) 2.0 H Eosinophils # (Manual) PT INR POC ABG pH POC ABG pCO2 POC ABG pO2 Sodium 152 H Potassium Chloride 117.1 H Carbon Dioxide 17 L BUN 66 H Creatinine 2.8 H Glucose 119 H POC Glucose Lactic Acid Calcium 7.8 L Magnesium 2.70 H AST ALT Alkaline Phosphatase Troponin T C-Reactive Protein Total Protein Albumin LDL Cholesterol Direct HDL Cholesterol Hepatitis C Antibody Crossmatch 11/20/17 11/20/17 11/20/17 03:29 04:48 13:38 WBC RBC Hgb Hct MCV MCH MCHC RDW Plt Count Lymph % (Auto) [place] % (Auto) Eos % (Auto) Lymph # [place] # Eos # Seg Neutrophils % Seg Neuts % (Manual) Lymphocytes % (Manual) Monocytes % (Manual) Eosinophils % (Manual) Nucleated RBC % Seg Neutrophils # Seg Neutrophils # Man Lymphocytes # (Manual) Monocytes # (Manual) Eosinophils # (Manual) PT INR POC ABG pH POC ABG pCO2 29.4 L POC ABG pO2 Sodium 148 H Potassium 3.4 L Chloride 113.7 H Carbon Dioxide 18 L BUN 59 H Creatinine 2.7 H Glucose 113 H POC Glucose 128 H Lactic Acid Calcium 7.8 L Magnesium AST ALT Alkaline Phosphatase Troponin T C-Reactive Protein Total Protein Albumin LDL Cholesterol Direct HDL Cholesterol Hepatitis C Antibody Crossmatch 11/20/17 11/20/17 11/21/17 17:38 23:40 00:13 WBC RBC Hgb 8.4 L Hct 28.0 L MCV MCH MCHC RDW Plt Count Lymph % (Auto) [place] % (Auto) Eos % (Auto) Lymph # [place] # Eos # Seg Neutrophils % Seg Neuts % (Manual) Lymphocytes % (Manual) Monocytes % (Manual) Eosinophils % (Manual) Nucleated RBC % Seg Neutrophils # Seg Neutrophils # Man Lymphocytes # (Manual) Monocytes # (Manual) Eosinophils # (Manual) PT INR POC ABG pH POC ABG pCO2 POC ABG pO2 Sodium Potassium Chloride Carbon Dioxide BUN Creatinine Glucose POC Glucose 115 H 145 H Lactic Acid Calcium Magnesium AST ALT Alkaline Phosphatase Troponin T C-Reactive Protein Total Protein Albumin LDL Cholesterol Direct HDL Cholesterol Hepatitis C Antibody Crossmatch 11/21/17 11/21/17 11/21/17 04:30 04:30 04:58 WBC 21.0 H RBC Hgb 9.6 L Hct 32.7 L MCV MCH 25 L MCHC 29 L RDW 19.7 H Plt Count 746 H Lymph % (Auto) [place] % (Auto) Eos % (Auto) Lymph # [place] # Eos # Seg Neutrophils % Seg Neuts % (Manual) Lymphocytes % (Manual) Monocytes % (Manual) Eosinophils % (Manual) Nucleated RBC % Seg Neutrophils # Seg Neutrophils # Man Lymphocytes # (Manual) Monocytes # (Manual) Eosinophils # (Manual) PT INR POC ABG pH POC ABG pCO2 POC ABG pO2 Sodium Potassium Chloride 109.4 H Carbon Dioxide 14 L BUN 59 H Creatinine 3.0 H Glucose 137 H POC Glucose 132 H Lactic Acid Calcium 7.6 L Magnesium AST ALT Alkaline Phosphatase Troponin T C-Reactive Protein Total Protein Albumin LDL Cholesterol Direct HDL Cholesterol Hepatitis C Antibody Crossmatch 11/21/17 11/21/17 11/21/17 06:30 13:43 14:17 WBC 38.2 H RBC Hgb 9.0 L Hct 32.3 L MCV MCH 25 L MCHC 28 L RDW 20.0 H Plt Count 766 H Lymph % (Auto) [place] % (Auto) Eos % (Auto) Lymph # [place] # Eos # Seg Neutrophils % Seg Neuts % (Manual) 85.0 H Lymphocytes % (Manual) 1.0 L Monocytes % (Manual) Eosinophils % (Manual) Nucleated RBC % 2.0 H Seg Neutrophils # Seg Neutrophils # Man 32.5 H Lymphocytes # (Manual) 0.4 L Monocytes # (Manual) 2.3 H Eosinophils # (Manual) PT INR POC ABG pH POC ABG pCO2 18.6 L POC ABG pO2 121 H Sodium 146 H Potassium Chloride 110.9 H Carbon Dioxide 11 L BUN 62 H Creatinine 4.0 H Glucose 64 L POC Glucose Lactic Acid Calcium 7.6 L Magnesium AST ALT Alkaline Phosphatase Troponin T C-Reactive Protein Total Protein Albumin LDL Cholesterol Direct HDL Cholesterol Hepatitis C Antibody Crossmatch 11/21/17 11/21/17 11/22/17 14:17 19:09 00:05 WBC RBC Hgb Hct MCV MCH MCHC RDW Plt Count Lymph % (Auto) [place] % (Auto) Eos % (Auto) Lymph # [place] # Eos # Seg Neutrophils % Seg Neuts % (Manual) Lymphocytes % (Manual) Monocytes % (Manual) Eosinophils % (Manual) Nucleated RBC % Seg Neutrophils # Seg Neutrophils # Man Lymphocytes # (Manual) Monocytes # (Manual) Eosinophils # (Manual) PT INR POC ABG pH POC ABG pCO2 20.0 L POC ABG pO2 Sodium Potassium Chloride Carbon Dioxide BUN Creatinine Glucose POC Glucose 127 H Lactic Acid 7.70 H* Calcium Magnesium AST ALT Alkaline Phosphatase Troponin T C-Reactive Protein Total Protein Albumin LDL Cholesterol Direct HDL Cholesterol Hepatitis C Antibody Crossmatch 11/22/17 11/22/17 11/22/17 03:53 06:00 07:25 WBC RBC Hgb Hct MCV MCH MCHC RDW Plt Count Lymph % (Auto) [place] % (Auto) Eos % (Auto) Lymph # [place] # Eos # Seg Neutrophils % Seg Neuts % (Manual) Lymphocytes % (Manual) Monocytes % (Manual) Eosinophils % (Manual) Nucleated RBC % Seg Neutrophils # Seg Neutrophils # Man Lymphocytes # (Manual) Monocytes # (Manual) Eosinophils # (Manual) PT INR POC ABG pH POC ABG pCO2 22.2 L POC ABG pO2 Sodium 147 H Potassium Chloride 111.9 H Carbon Dioxide 16 L BUN 72 H Creatinine 5.1 H Glucose 181 H POC Glucose 180 H Lactic Acid Calcium 7.1 L Magnesium AST ALT Alkaline Phosphatase Troponin T C-Reactive Protein Total Protein Albumin LDL Cholesterol Direct HDL Cholesterol Hepatitis C Antibody Crossmatch 11/22/17 11/22/17 11/22/17 07:25 07:25 12:05 WBC 31.4 H RBC 3.22 L Hgb 8.0 L Hct 26.7 L MCV 83 L MCH 25 L MCHC 30 L RDW 19.4 H Plt Count 602 H Lymph % (Auto) [place] % (Auto) Eos % (Auto) Lymph # [place] # Eos # Seg Neutrophils % Seg Neuts % (Manual) Lymphocytes % (Manual) Monocytes % (Manual) Eosinophils % (Manual) Nucleated RBC % Seg Neutrophils # Seg Neutrophils # Man Lymphocytes # (Manual) Monocytes # (Manual) Eosinophils # (Manual) PT INR POC ABG pH POC ABG pCO2 POC ABG pO2 Sodium Potassium Chloride Carbon Dioxide BUN Creatinine Glucose POC Glucose 182 H Lactic Acid 5.00 H* Calcium Magnesium AST ALT Alkaline Phosphatase Troponin T C-Reactive Protein Total Protein Albumin LDL Cholesterol Direct HDL Cholesterol Hepatitis C Antibody Crossmatch 11/22/17 11/23/17 11/23/17 19:45 01:28 04:56 WBC RBC Hgb Hct MCV MCH MCHC RDW Plt Count Lymph % (Auto) [place] % (Auto) Eos % (Auto) Lymph # [place] # Eos # Seg Neutrophils % Seg Neuts % (Manual) Lymphocytes % (Manual) Monocytes % (Manual) Eosinophils % (Manual) Nucleated RBC % Seg Neutrophils # Seg Neutrophils # Man Lymphocytes # (Manual) Monocytes # (Manual) Eosinophils # (Manual) PT INR POC ABG pH 7.505 H POC ABG pCO2 26.3 L POC ABG pO2 Sodium Potassium Chloride Carbon Dioxide BUN Creatinine Glucose POC Glucose 165 H Lactic Acid Calcium Magnesium AST ALT Alkaline Phosphatase Troponin T C-Reactive Protein Total Protein Albumin LDL Cholesterol Direct HDL Cholesterol Hepatitis C Antibody Reactive A Crossmatch 11/23/17 11/23/17 11/23/17 07:05 12:32 17:53 WBC RBC Hgb Hct MCV MCH MCHC RDW Plt Count Lymph % (Auto) [place] % (Auto) Eos % (Auto) Lymph # [place] # Eos # Seg Neutrophils % Seg Neuts % (Manual) Lymphocytes % (Manual) Monocytes % (Manual) Eosinophils % (Manual) Nucleated RBC % Seg Neutrophils # Seg Neutrophils # Man Lymphocytes # (Manual) Monocytes # (Manual) Eosinophils # (Manual) PT INR POC ABG pH POC ABG pCO2 POC ABG pO2 Sodium Potassium Chloride Carbon Dioxide 18 L BUN 61 H Creatinine 4.2 H Glucose 153 H POC Glucose 138 H 173 H Lactic Acid Calcium 7.5 L Magnesium AST ALT Alkaline Phosphatase Troponin T C-Reactive Protein Total Protein Albumin LDL Cholesterol Direct HDL Cholesterol Hepatitis C Antibody Crossmatch 11/23/17 11/24/17 11/24/17 23:41 05:42 05:42 WBC 21.5 H RBC 2.48 L Hgb 6.2 L Hct 20.3 L D MCV 82 L MCH 25 L MCHC 31 L RDW 18.9 H Plt Count Lymph % (Auto) [place] % (Auto) Eos % (Auto) Lymph # [place] # Eos # Seg Neutrophils % Seg Neuts % (Manual) 94.0 H Lymphocytes % (Manual) 3.0 L Monocytes % (Manual) Eosinophils % (Manual) Nucleated RBC % Seg Neutrophils # Seg Neutrophils # Man 20.2 H Lymphocytes # (Manual) 0.6 L Monocytes # (Manual) Eosinophils # (Manual) PT INR POC ABG pH POC ABG pCO2 POC ABG pO2 Sodium 149 H Potassium 2.8 L* D Chloride 113.9 H Carbon Dioxide 19 L BUN 31 H Creatinine 2.3 H Glucose 103 H POC Glucose 133 H Lactic Acid Calcium 5.3 L* D Magnesium 1.30 L AST ALT Alkaline Phosphatase Troponin T C-Reactive Protein Total Protein Albumin LDL Cholesterol Direct HDL Cholesterol Hepatitis C Antibody Crossmatch 11/24/17 11/24/17 11/24/17 05:42 08:27 08:27 WBC RBC Hgb Hct MCV MCH MCHC RDW Plt Count Lymph % (Auto) [place] % (Auto) Eos % (Auto) Lymph # [place] # Eos # Seg Neutrophils % Seg Neuts % (Manual) Lymphocytes % (Manual) Monocytes % (Manual) Eosinophils % (Manual) Nucleated RBC % Seg Neutrophils # Seg Neutrophils # Man Lymphocytes # (Manual) Monocytes # (Manual) Eosinophils # (Manual) PT INR POC ABG pH POC ABG pCO2 POC ABG pO2 Sodium Potassium Chloride Carbon Dioxide BUN Creatinine Glucose POC Glucose Lactic Acid 5.40 H* 5.20 H* Calcium Magnesium AST ALT Alkaline Phosphatase Troponin T C-Reactive Protein Total Protein Albumin LDL Cholesterol Direct HDL Cholesterol Hepatitis C Antibody Crossmatch See Detail 11/24/17 11/24/17 11/24/17 12:13 17:22 21:53 WBC 23.0 H RBC 3.32 L Hgb 8.8 L Hct 27.1 L D MCV 82 L MCH 26 L MCHC RDW 17.3 H Plt Count Lymph % (Auto) [place] % (Auto) Eos % (Auto) Lymph # [place] # Eos # Seg Neutrophils % Seg Neuts % (Manual) Lymphocytes % (Manual) Monocytes % (Manual) Eosinophils % (Manual) Nucleated RBC % Seg Neutrophils # Seg Neutrophils # Man Lymphocytes # (Manual) Monocytes # (Manual) Eosinophils # (Manual) PT INR POC ABG pH POC ABG pCO2 POC ABG pO2 Sodium Potassium Chloride Carbon Dioxide BUN Creatinine Glucose POC Glucose 138 H 180 H Lactic Acid Calcium Magnesium AST ALT Alkaline Phosphatase Troponin T C-Reactive Protein Total Protein Albumin LDL Cholesterol Direct HDL Cholesterol Hepatitis C Antibody Crossmatch 11/24/17 11/24/17 11/25/17 21:53 23:28 04:19 WBC RBC Hgb Hct MCV MCH MCHC RDW Plt Count Lymph % (Auto) [place] % (Auto) Eos % (Auto) Lymph # [place] # Eos # Seg Neutrophils % Seg Neuts % (Manual) Lymphocytes % (Manual) Monocytes % (Manual) Eosinophils % (Manual) Nucleated RBC % Seg Neutrophils # Seg Neutrophils # Man Lymphocytes # (Manual) Monocytes # (Manual) Eosinophils # (Manual) PT INR POC ABG pH POC ABG pCO2 POC ABG pO2 Sodium Potassium Chloride 96.3 L Carbon Dioxide BUN 28 H 31 H Creatinine 2.3 H 2.6 H Glucose 125 H 101 H POC Glucose 111 H Lactic Acid Calcium 7.5 L D 7.4 L Magnesium AST 170 H ALT 179 H Alkaline Phosphatase 175 H Troponin T C-Reactive Protein Total Protein 5.5 L Albumin 1.8 L LDL Cholesterol Direct HDL Cholesterol Hepatitis C Antibody Crossmatch 11/25/17 11/25/17 11/26/17 04:19 04:19 06:29 WBC 22.5 H RBC 3.48 L Hgb 9.1 L Hct 28.3 L MCV 81 L MCH 26 L MCHC RDW 17.4 H Plt Count Lymph % (Auto) [place] % (Auto) Eos % (Auto) Lymph # [place] # Eos # Seg Neutrophils % Seg Neuts % (Manual) Lymphocytes % (Manual) Monocytes % (Manual) Eosinophils % (Manual) Nucleated RBC % Seg Neutrophils # Seg Neutrophils # Man Lymphocytes # (Manual) Monocytes # (Manual) Eosinophils # (Manual) PT 23.6 H INR 1.96 H POC ABG pH POC ABG pCO2 POC ABG pO2 Sodium Potassium Chloride Carbon Dioxide BUN 31 H Creatinine 2.6 H Glucose 101 H POC Glucose Lactic Acid Calcium 7.5 L Magnesium AST ALT Alkaline Phosphatase Troponin T C-Reactive Protein Total Protein Albumin LDL Cholesterol Direct HDL Cholesterol Hepatitis C Antibody Crossmatch 11/26/17 11/27/17 11/27/17 06:34 04:06 04:06 WBC 11.3 H RBC 3.13 L Hgb 8.4 L Hct 25.8 L MCV 82 L MCH 27 L MCHC RDW 17.7 H Plt Count Lymph % (Auto) 7.4 L [place] % (Auto) Eos % (Auto) Lymph # 0.8 L Burke # Eos # Seg Neutrophils % 83.7 H Seg Neuts % (Manual) Lymphocytes % (Manual) Monocytes % (Manual) Eosinophils % (Manual) Nucleated RBC % Seg Neutrophils # 9.5 H Seg Neutrophils # Man Lymphocytes # (Manual) Monocytes # (Manual) Eosinophils # (Manual) PT INR POC ABG pH POC ABG pCO2 POC ABG pO2 Sodium Potassium Chloride 97.9 L Carbon Dioxide BUN 43 H 29 H Creatinine 3.5 H 2.9 H Glucose POC Glucose Lactic Acid Calcium 7.5 L 8.1 L Magnesium AST ALT Alkaline Phosphatase Troponin T C-Reactive Protein Total Protein Albumin LDL Cholesterol Direct HDL Cholesterol Hepatitis C Antibody Crossmatch 11/27/17 11/28/17 11/28/17 18:11 00:16 03:50 WBC RBC Hgb Hct MCV MCH MCHC RDW Plt Count Lymph % (Auto) [place] % (Auto) Eos % (Auto) Lymph # Burke # Eos # Seg Neutrophils % Seg Neuts % (Manual) Lymphocytes % (Manual) Monocytes % (Manual) Eosinophils % (Manual) Nucleated RBC % Seg Neutrophils # Seg Neutrophils # Man Lymphocytes # (Manual) Monocytes # (Manual) Eosinophils # (Manual) PT INR POC ABG pH POC ABG pCO2 POC ABG pO2 Sodium Potassium Chloride Carbon Dioxide BUN 39 H Creatinine 4.1 H Glucose 108 H POC Glucose 110 H 124 H Lactic Acid Calcium 7.9 L Magnesium AST ALT Alkaline Phosphatase Troponin T C-Reactive Protein Total Protein Albumin LDL Cholesterol Direct HDL Cholesterol Hepatitis C Antibody Crossmatch 11/28/17 11/28/17 11/28/17 05:03 11:36 17:42 WBC RBC Hgb Hct MCV MCH MCHC RDW Plt Count Lymph % (Auto) Burke % (Auto) Eos % (Auto) Lymph # Burke # Eos # Seg Neutrophils % Seg Neuts % (Manual) Lymphocytes % (Manual) Monocytes % (Manual) Eosinophils % (Manual) Nucleated RBC % Seg Neutrophils # Seg Neutrophils # Man Lymphocytes # (Manual) Monocytes # (Manual) Eosinophils # (Manual) PT INR POC ABG pH POC ABG pCO2 POC ABG pO2 Sodium Potassium Chloride Carbon Dioxide BUN Creatinine Glucose POC Glucose 134 H 114 H 119 H Lactic Acid Calcium Magnesium AST ALT Alkaline Phosphatase Troponin T C-Reactive Protein Total Protein Albumin LDL Cholesterol Direct HDL Cholesterol Hepatitis C Antibody Crossmatch 11/29/17 11/29/17 11/29/17 00:22 05:25 05:25 WBC 12.3 H RBC 3.34 L Hgb 8.6 L Hct 27.3 L MCV 82 L MCH 26 L MCHC RDW 18.5 H Plt Count Lymph % (Auto) 3.7 L Burke % (Auto) 7.7 H Eos % (Auto) Lymph # 0.5 L Burke # 1.0 H Eos # Seg Neutrophils % 86.5 H Seg Neuts % (Manual) Lymphocytes % (Manual) Monocytes % (Manual) Eosinophils % (Manual) Nucleated RBC % Seg Neutrophils # 10.7 H Seg Neutrophils # Man Lymphocytes # (Manual) Monocytes # (Manual) Eosinophils # (Manual) PT INR POC ABG pH POC ABG pCO2 POC ABG pO2 Sodium Potassium Chloride Carbon Dioxide BUN 29 H Creatinine 3.5 H Glucose 109 H POC Glucose 137 H Lactic Acid Calcium 7.8 L Magnesium AST ALT Alkaline Phosphatase Troponin T C-Reactive Protein Total Protein Albumin LDL Cholesterol Direct HDL Cholesterol Hepatitis C Antibody Crossmatch 11/29/17 11/30/17 11/30/17 05:26 00:26 04:17 WBC RBC Hgb Hct MCV MCH MCHC RDW Plt Count Lymph % (Auto) Burke % (Auto) Eos % (Auto) Lymph # Burke # Eos # Seg Neutrophils % Seg Neuts % (Manual) Lymphocytes % (Manual) Monocytes % (Manual) Eosinophils % (Manual) Nucleated RBC % Seg Neutrophils # Seg Neutrophils # Man Lymphocytes # (Manual) Monocytes # (Manual) Eosinophils # (Manual) PT INR POC ABG pH POC ABG pCO2 POC ABG pO2 Sodium Potassium Chloride Carbon Dioxide BUN 38 H Creatinine 4.3 H Glucose 109 H POC Glucose 129 H 152 H Lactic Acid Calcium 7.8 L Magnesium AST ALT Alkaline Phosphatase Troponin T C-Reactive Protein Total Protein Albumin LDL Cholesterol Direct HDL Cholesterol Hepatitis C Antibody Crossmatch 11/30/17 11/30/17 11/30/17 12:17 16:23 23:35 WBC RBC Hgb Hct MCV MCH MCHC RDW Plt Count Lymph % (Auto) Burke % (Auto) Eos % (Auto) Lymph # Burke # Eos # Seg Neutrophils % Seg Neuts % (Manual) Lymphocytes % (Manual) Monocytes % (Manual) Eosinophils % (Manual) Nucleated RBC % Seg Neutrophils # Seg Neutrophils # Man Lymphocytes # (Manual) Monocytes # (Manual) Eosinophils # (Manual) PT INR POC ABG pH POC ABG pCO2 POC ABG pO2 Sodium Potassium Chloride Carbon Dioxide BUN Creatinine Glucose POC Glucose 170 H 114 H 122 H Lactic Acid Calcium Magnesium AST ALT Alkaline Phosphatase Troponin T C-Reactive Protein Total Protein Albumin LDL Cholesterol Direct HDL Cholesterol Hepatitis C Antibody Crossmatch 12/01/17 12/01/17 12/01/17 04:09 04:09 12:17 WBC 14.1 H RBC 3.32 L Hgb 8.6 L Hct 27.0 L MCV 81 L MCH 26 L MCHC RDW 18.7 H Plt Count Lymph % (Auto) 5.5 L Burke % (Auto) 9.7 H Eos % (Auto) Lymph # 0.8 L Burke # 1.4 H Eos # Seg Neutrophils % 82.9 H Seg Neuts % (Manual) Lymphocytes % (Manual) Monocytes % (Manual) Eosinophils % (Manual) Nucleated RBC % Seg Neutrophils # 11.7 H Seg Neutrophils # Man Lymphocytes # (Manual) Monocytes # (Manual) Eosinophils # (Manual) PT INR POC ABG pH POC ABG pCO2 POC ABG pO2 Sodium Potassium 3.4 L Chloride Carbon Dioxide BUN 21 H Creatinine 3.0 H Glucose 108 H POC Glucose 126 H Lactic Acid Calcium 8.0 L Magnesium AST ALT Alkaline Phosphatase Troponin T C-Reactive Protein Total Protein Albumin LDL Cholesterol Direct HDL Cholesterol Hepatitis C Antibody Crossmatch 12/02/17 12/03/17 12/03/17 23:46 02:52 05:54 WBC 17.2 H RBC 3.21 L Hgb 8.5 L Hct 25.8 L MCV 80 L MCH 26 L MCHC RDW 18.4 H Plt Count 128 L Lymph % (Auto) Burke % (Auto) Eos % (Auto) Lymph # Burke # Eos # Seg Neutrophils % Seg Neuts % (Manual) Lymphocytes % (Manual) Monocytes % (Manual) Eosinophils % (Manual) Nucleated RBC % Seg Neutrophils # Seg Neutrophils # Man Lymphocytes # (Manual) Monocytes # (Manual) Eosinophils # (Manual) PT INR POC ABG pH POC ABG pCO2 POC ABG pO2 Sodium Potassium Chloride Carbon Dioxide BUN Creatinine Glucose POC Glucose 125 H 107 H Lactic Acid Calcium Magnesium AST ALT Alkaline Phosphatase Troponin T C-Reactive Protein Total Protein Albumin LDL Cholesterol Direct HDL Cholesterol Hepatitis C Antibody Crossmatch 12/03/17 12/03/17 12/04/17 12:05 Unknown 12:26 WBC RBC Hgb Hct MCV MCH MCHC RDW Plt Count Lymph % (Auto) Burke % (Auto) Eos % (Auto) Lymph # Burke # Eos # Seg Neutrophils % Seg Neuts % (Manual) Lymphocytes % (Manual) Monocytes % (Manual) Eosinophils % (Manual) Nucleated RBC % Seg Neutrophils # Seg Neutrophils # Man Lymphocytes # (Manual) Monocytes # (Manual) Eosinophils # (Manual) PT INR POC ABG pH POC ABG pCO2 POC ABG pO2 Sodium Potassium Chloride Carbon Dioxide BUN 21 H Creatinine 2.8 H Glucose 113 H POC Glucose 106 H 119 H Lactic Acid Calcium Magnesium AST ALT Alkaline Phosphatase Troponin T C-Reactive Protein Total Protein Albumin LDL Cholesterol Direct HDL Cholesterol Hepatitis C Antibody Crossmatch 12/04/17 12/05/17 12/05/17 17:57 00:52 04:05 WBC RBC 2.96 L Hgb 7.7 L Hct 24.2 L MCV 82 L MCH 26 L MCHC RDW 18.8 H Plt Count 105 L Lymph % (Auto) 10.6 L Burke % (Auto) 12.1 H Eos % (Auto) 5.2 H Lymph # 1.1 L Burke # 1.3 H Eos # 0.5 H Seg Neutrophils % 71.3 H Seg Neuts % (Manual) Lymphocytes % (Manual) Monocytes % (Manual) Eosinophils % (Manual) Nucleated RBC % Seg Neutrophils # Seg Neutrophils # Man Lymphocytes # (Manual) Monocytes # (Manual) Eosinophils # (Manual) PT INR POC ABG pH POC ABG pCO2 POC ABG pO2 Sodium Potassium Chloride Carbon Dioxide BUN Creatinine Glucose POC Glucose 140 H 117 H Lactic Acid Calcium Magnesium AST ALT Alkaline Phosphatase Troponin T C-Reactive Protein Total Protein Albumin LDL Cholesterol Direct HDL Cholesterol Hepatitis C Antibody Crossmatch 12/05/17 12/05/17 12/06/17 04:05 22:50 08:18 WBC RBC 2.80 L Hgb 7.4 L Hct 23.0 L MCV 82 L MCH 27 L MCHC RDW 19.5 H Plt Count 125 L Lymph % (Auto) Burke % (Auto) Eos % (Auto) Lymph # Burke # Eos # Seg Neutrophils % Seg Neuts % (Manual) Lymphocytes % (Manual) Monocytes % (Manual) Eosinophils % (Manual) Nucleated RBC % Seg Neutrophils # Seg Neutrophils # Man Lymphocytes # (Manual) Monocytes # (Manual) Eosinophils # (Manual) PT INR POC ABG pH POC ABG pCO2 POC ABG pO2 Sodium Potassium Chloride 107.4 H Carbon Dioxide BUN Creatinine 2.5 H Glucose POC Glucose 112 H Lactic Acid Calcium 8.3 L Magnesium AST ALT Alkaline Phosphatase Troponin T C-Reactive Protein Total Protein Albumin LDL Cholesterol Direct HDL Cholesterol Hepatitis C Antibody Crossmatch 12/06/17 12/06/17 12/06/17 08:18 12:01 23:58 WBC RBC Hgb Hct MCV MCH MCHC RDW Plt Count Lymph % (Auto) Burke % (Auto) Eos % (Auto) Lymph # Burke # Eos # Seg Neutrophils % Seg Neuts % (Manual) Lymphocytes % (Manual) Monocytes % (Manual) Eosinophils % (Manual) Nucleated RBC % Seg Neutrophils # Seg Neutrophils # Man Lymphocytes # (Manual) Monocytes # (Manual) Eosinophils # (Manual) PT INR POC ABG pH POC ABG pCO2 POC ABG pO2 Sodium Potassium Chloride 108.4 H Carbon Dioxide BUN 28 H Creatinine 3.7 H Glucose 103 H POC Glucose 106 H 108 H Lactic Acid Calcium 8.0 L Magnesium AST ALT Alkaline Phosphatase Troponin T C-Reactive Protein Total Protein Albumin LDL Cholesterol Direct HDL Cholesterol Hepatitis C Antibody Crossmatch 12/07/17 12/07/17 12/07/17 05:47 05:47 18:03 WBC RBC 2.79 L Hgb 7.3 L Hct 22.8 L MCV 82 L MCH 26 L MCHC RDW 19.1 H Plt Count 101 L Lymph % (Auto) Burke % (Auto) Eos % (Auto) Lymph # Burke # Eos # Seg Neutrophils % Seg Neuts % (Manual) 72.0 H Lymphocytes % (Manual) 13.0 L Monocytes % (Manual) Eosinophils % (Manual) 9.0 H Nucleated RBC % Seg Neutrophils # Seg Neutrophils # Man Lymphocytes # (Manual) 1.1 L Monocytes # (Manual) Eosinophils # (Manual) 0.8 H PT INR POC ABG pH POC ABG pCO2 POC ABG pO2 Sodium 146 H Potassium Chloride 109.8 H Carbon Dioxide BUN 36 H Creatinine 4.0 H Glucose POC Glucose 143 H Lactic Acid Calcium 8.0 L Magnesium AST ALT Alkaline Phosphatase Troponin T C-Reactive Protein Total Protein Albumin LDL Cholesterol Direct HDL Cholesterol Hepatitis C Antibody Crossmatch 12/07/17 12/08/17 12/08/17 23:33 05:10 05:10 WBC RBC 2.91 L Hgb 7.5 L Hct 24.4 L MCV MCH 26 L MCHC 31 L RDW 19.7 H Plt Count 109 L Lymph % (Auto) Burke % (Auto) Eos % (Auto) Lymph # Burke # Eos # Seg Neutrophils % Seg Neuts % (Manual) Lymphocytes % (Manual) 11.0 L Monocytes % (Manual) Eosinophils % (Manual) 12.0 H Nucleated RBC % Seg Neutrophils # Seg Neutrophils # Man Lymphocytes # (Manual) 0.7 L Monocytes # (Manual) Eosinophils # (Manual) 0.7 H PT INR POC ABG pH POC ABG pCO2 POC ABG pO2 Sodium 147 H Potassium Chloride 110.4 H Carbon Dioxide BUN Creatinine 2.8 H Glucose POC Glucose 107 H Lactic Acid Calcium 7.8 L Magnesium AST ALT Alkaline Phosphatase Troponin T C-Reactive Protein Total Protein Albumin LDL Cholesterol Direct HDL Cholesterol Hepatitis C Antibody Crossmatch 12/09/17 12/09/17 12/09/17 04:18 04:18 12:16 WBC RBC Hgb 7.2 L Hct 23.2 L MCV MCH MCHC RDW Plt Count Lymph % (Auto) Burke % (Auto) Eos % (Auto) Lymph # Burke # Eos # Seg Neutrophils % Seg Neuts % (Manual) Lymphocytes % (Manual) Monocytes % (Manual) Eosinophils % (Manual) Nucleated RBC % Seg Neutrophils # Seg Neutrophils # Man Lymphocytes # (Manual) Monocytes # (Manual) Eosinophils # (Manual) PT INR POC ABG pH POC ABG pCO2 POC ABG pO2 Sodium 150 H Potassium Chloride 114.5 H Carbon Dioxide BUN 25 H Creatinine 3.3 H Glucose POC Glucose 142 H Lactic Acid Calcium 7.7 L Magnesium AST ALT Alkaline Phosphatase Troponin T C-Reactive Protein Total Protein Albumin LDL Cholesterol Direct HDL Cholesterol Hepatitis C Antibody Crossmatch 12/10/17 12/10/17 12/11/17 05:14 05:14 12:05 WBC RBC 2.81 L Hgb 7.4 L Hct 23.9 L MCV MCH 26 L MCHC 31 L RDW 19.1 H Plt Count 128 L Lymph % (Auto) Burke % (Auto) Eos % (Auto) Lymph # Burke # Eos # Seg Neutrophils % Seg Neuts % (Manual) 78.0 H Lymphocytes % (Manual) 8.0 L Monocytes % (Manual) Eosinophils % (Manual) 5.0 H Nucleated RBC % Seg Neutrophils # Seg Neutrophils # Man Lymphocytes # (Manual) 0.6 L Monocytes # (Manual) Eosinophils # (Manual) PT INR POC ABG pH POC ABG pCO2 POC ABG pO2 Sodium Potassium Chloride Carbon Dioxide BUN Creatinine 2.2 H Glucose POC Glucose 127 H Lactic Acid Calcium 7.8 L Magnesium AST ALT Alkaline Phosphatase Troponin T C-Reactive Protein Total Protein Albumin LDL Cholesterol Direct HDL Cholesterol Hepatitis C Antibody Crossmatch 12/11/17 12/11/17 12/11/17 15:26 18:36 23:40 WBC RBC Hgb Hct MCV MCH MCHC RDW Plt Count Lymph % (Auto) Burke % (Auto) Eos % (Auto) Lymph # Burke # Eos # Seg Neutrophils % Seg Neuts % (Manual) Lymphocytes % (Manual) Monocytes % (Manual) Eosinophils % (Manual) Nucleated RBC % Seg Neutrophils # Seg Neutrophils # Man Lymphocytes # (Manual) Monocytes # (Manual) Eosinophils # (Manual) PT INR POC ABG pH POC ABG pCO2 POC ABG pO2 Sodium Potassium 3.3 L Chloride Carbon Dioxide BUN Creatinine 1.6 H Glucose POC Glucose 106 H 110 H Lactic Acid Calcium 7.6 L Magnesium AST ALT Alkaline Phosphatase Troponin T C-Reactive Protein Total Protein Albumin LDL Cholesterol Direct HDL Cholesterol Hepatitis C Antibody Crossmatch 12/12/17 12/12/17 12/12/17 05:10 05:41 05:41 WBC RBC 3.17 L Hgb 8.1 L Hct 25.7 L MCV 81 L MCH 25 L MCHC 31 L RDW 19.2 H Plt Count Lymph % (Auto) Burke % (Auto) Eos % (Auto) Lymph # Burke # Eos # Seg Neutrophils % Seg Neuts % (Manual) 74.0 H Lymphocytes % (Manual) 6.0 L Monocytes % (Manual) Eosinophils % (Manual) 9.0 H Nucleated RBC % Seg Neutrophils # Seg Neutrophils # Man Lymphocytes # (Manual) 0.6 L Monocytes # (Manual) Eosinophils # (Manual) 0.9 H PT INR POC ABG pH POC ABG pCO2 POC ABG pO2 Sodium Potassium 3.5 L Chloride Carbon Dioxide BUN Creatinine 2.3 H Glucose 113 H POC Glucose 112 H Lactic Acid Calcium 7.5 L Magnesium AST ALT Alkaline Phosphatase Troponin T C-Reactive Protein Total Protein Albumin LDL Cholesterol Direct HDL Cholesterol Hepatitis C Antibody Crossmatch 12/13/17 12/13/17 12/13/17 06:14 12:00 17:37 WBC RBC Hgb Hct MCV MCH MCHC RDW Plt Count Lymph % (Auto) Burke % (Auto) Eos % (Auto) Lymph # Burke # Eos # Seg Neutrophils % Seg Neuts % (Manual) Lymphocytes % (Manual) Monocytes % (Manual) Eosinophils % (Manual) Nucleated RBC % Seg Neutrophils # Seg Neutrophils # Man Lymphocytes # (Manual) Monocytes # (Manual) Eosinophils # (Manual) PT INR POC ABG pH POC ABG pCO2 POC ABG pO2 Sodium Potassium Chloride Carbon Dioxide BUN Creatinine Glucose POC Glucose 130 H 133 H 136 H Lactic Acid Calcium Magnesium AST ALT Alkaline Phosphatase Troponin T C-Reactive Protein Total Protein Albumin LDL Cholesterol Direct HDL Cholesterol Hepatitis C Antibody Crossmatch 12/13/17 12/14/17 12/14/17 23:39 05:11 05:11 WBC RBC Hgb Hct MCV MCH MCHC RDW Plt Count Lymph % (Auto) Burke % (Auto) Eos % (Auto) Lymph # Burke # Eos # Seg Neutrophils % Seg Neuts % (Manual) Lymphocytes % (Manual) Monocytes % (Manual) Eosinophils % (Manual) Nucleated RBC % Seg Neutrophils # Seg Neutrophils # Man Lymphocytes # (Manual) Monocytes # (Manual) Eosinophils # (Manual) PT 15.4 H INR 1.17 H POC ABG pH POC ABG pCO2 POC ABG pO2 Sodium Potassium Chloride Carbon Dioxide 21 L BUN 26 H Creatinine 2.9 H Glucose POC Glucose 108 H Lactic Acid Calcium 7.2 L Magnesium AST ALT Alkaline Phosphatase Troponin T C-Reactive Protein Total Protein Albumin LDL Cholesterol Direct HDL Cholesterol Hepatitis C Antibody Crossmatch 12/14/17 Unknown WBC 12.5 H RBC 2.48 L Hgb 6.0 L Hct 24.4 L MCV 79 L MCH 24 L MCHC 30 L RDW 18.5 H Plt Count 131 L Lymph % (Auto) 7.0 L Burke % (Auto) 8.9 H Eos % (Auto) 8.3 H Lymph # 0.9 L Burke # 1.1 H Eos # 1.0 H Seg Neutrophils % 75.2 H Seg Neuts % (Manual) Lymphocytes % (Manual) Monocytes % (Manual) Eosinophils % (Manual) Nucleated RBC % Seg Neutrophils # 9.4 H Seg Neutrophils # Man Lymphocytes # (Manual) Monocytes # (Manual) Eosinophils # (Manual) PT INR POC ABG pH POC ABG pCO2 POC ABG pO2 Sodium Potassium Chloride Carbon Dioxide BUN Creatinine Glucose POC Glucose Lactic Acid Calcium Magnesium AST ALT Alkaline Phosphatase Troponin T C-Reactive Protein Total Protein Albumin LDL Cholesterol Direct HDL Cholesterol Hepatitis C Antibody Crossmatch
--- NOTE | 2017-12-14 13:12 | Progress Note ---
Assessment and Plan Assessment * Acute kidney injury secondary to ATN --Intermittent HD started on 11/23/17 * Sepsis secondary to peritonitis/PEG malpositioning --RUQ/LUQ drains: Enterobacter, Heather (non albicans) * Aspiration pneumonitis related to above * Anemia * Acute CVA * Carotid artery disease s/p CEA * Encephalopathy Plan: * No evidence of renal recovery * Continue HD MWF. UF as tolerated * Abx per ID * uf as tolerated with HD * IR and surgery notes reviewed * Strict I/O * Avoid potential nephrptoxins * Dose medications for renal function * Replete lytes prn * Avoid nephrotoxins Subjective Date of service: 12/14/17 Principal diagnosis: Acute hypoxic respiratory failure, s/p Trach Interval history: new consult noted, last seen 11/09 with normal renal function Objective - Exam Narrative Exam: Constitutional: lethargic, other (intubated) Eyes: non-icteric ENT: oropharynx moist, other (ETT at 24 cm) Neck: supple, no JVD Ascultation: Bilateral: rhonchi (bilateral LT >>RT) Cardiovascular: regular rate and rhythm, other (tachycardic) Gastrointestinal: normoactive bowel sounds, non-distended Integumentary: normal Extremities: no cyanosis, no edema, other (RT femoral line in place) Neurologic: unable to assess (opens eyes spontaneously but does not follow commands . ) - Vital Signs Vital signs: Vital Signs - 12hr 12/14/17 12/14/17 12/14/17 02:00 03:00 04:00 Temperature 99.3 F Pulse Rate 91 H 81 77 Respiratory 27 H 27 H 25 H Rate Blood Pressure 141/83 141/83 132/69 O2 Sat by Pulse 99 100 100 Oximetry O2 Sat by Pulse Oximetry [ Assessment] 12/14/17 12/14/17 12/14/17 05:00 06:00 07:00 Temperature Pulse Rate 89 89 89 Respiratory 28 H 28 H 11 L Rate Blood Pressure 148/84 120/83 134/79 O2 Sat by Pulse 100 98 Oximetry O2 Sat by Pulse Oximetry [ Assessment] 12/14/17 12/14/17 12/14/17 07:43 07:45 08:00 Temperature 98.8 F Pulse Rate 98 H Respiratory 18 Rate Blood Pressure 145/87 O2 Sat by Pulse 94 97 Oximetry O2 Sat by Pulse 100 Oximetry [ Assessment] 12/14/17 12/14/17 12/14/17 09:01 09:10 09:15 Temperature 98.2 F Pulse Rate 96 H 73 83 Respiratory 26 H 22 Rate Blood Pressure 157/91 136/72 142/70 O2 Sat by Pulse 99 Oximetry O2 Sat by Pulse Oximetry [ Assessment] 12/14/17 12/14/17 12/14/17 09:30 09:45 10:00 Temperature Pulse Rate 78 91 H 79 Respiratory 22 Rate Blood Pressure 147/77 147/77 146/70 O2 Sat by Pulse 99 Oximetry O2 Sat by Pulse Oximetry [ Assessment] 12/14/17 12/14/17 12/14/17 10:15 10:30 10:45 Temperature Pulse Rate 83 91 H 95 H Respiratory Rate Blood Pressure 145/72 151/89 161/80 O2 Sat by Pulse Oximetry O2 Sat by Pulse Oximetry [ Assessment] 12/14/17 12/14/17 12/14/17 11:00 11:15 11:30 Temperature Pulse Rate 87 108 H 98 H Respiratory 25 H Rate Blood Pressure 161/80 146/88 137/91 O2 Sat by Pulse Oximetry O2 Sat by Pulse Oximetry [ Assessment] 12/14/17 12/14/17 12/14/17 11:45 12:00 12:15 Temperature 97.9 F Pulse Rate 108 H 117 H 115 H Respiratory Rate Blood Pressure 135/88 125/84 127/86 O2 Sat by Pulse Oximetry O2 Sat by Pulse Oximetry [ Assessment] 12/14/17 12/14/17 12:30 12:45 Temperature Pulse Rate 106 H 116 H Respiratory Rate Blood Pressure 112/68 106/72 O2 Sat by Pulse Oximetry O2 Sat by Pulse Oximetry [ Assessment] - Lab 12/14/17 Unknown 12/14/17 05:11 Most recent lab results Calcium 7.2 mg/dL (8.4-10.2) L 12/14/17 05:11 Phosphorus 2.60 mg/dL (2.5-4.5) 12/11/17 15:26 Magnesium 2.00 mg/dL (1.7-2.3) 11/24/17 21:53
[2017-12-14] MEDS: DIFLUCAN FEEDTUBE SCH (14:51)
[2017-12-14] MEDS: MERREM 1,000 MG in NACL 0.9% 100 ML IV SCH (14:51)
[2017-12-14] MEDS: PREVACID SOLUTAB FEEDTUBE SCH ×2 (14:51→21:53)
--- NOTE | 2017-12-14 14:53 | Progress Note ---
Assessment and Plan - Patient Problems (1) Gastrostomy malfunction Current Visit: Yes Status: Acute Plan to address problem: Pt is stable. After reviewing the records, discussing the case with multiple attendings, and seeing the patient, it is clear that we do not have an acute perforation. Most likely, the PEG tube started to migrate out of position prior to 11/18 as evidenced by no PEG button seen on EGD and no obvious hole in the stomach. As the contrast is restricted to certain areas in the abdomen, the fluid is loculated. The "ascites" may be tube feeds and/or reactionary fluid. Regardless, patient is not showing signs of obvious peritonitis. In this case, it may be prudent to try placing a few drains in the abdomen to remove that largest collections. I have already discussed this case with Dr. Moreira who agreed to review the case and see if that was possible. The alternative would be to take the patient for an ex-lap and washout the abdomen. I'm concerned that there may be a lot of inflammatory changes in the abdomen which would put him at risk for bowel injuries from the procedure. Therefore, this will be our back-up plan if the drains do not resolve the problem. As for nutritional access , for now, I would recommend an NGT. I doubt he has an active leak, so there is no need to test the stomach prior to using it. I have explained this plan in detail to the daughter (Jannette) and the attendings from ICU, GI, and hospitalist service. All were in agreement. - 11/25/17 Initial Consult Pt appears stable. s/p dx lap and washout - 12/03 POD#11. Pt stable. Removed left upper drain. Will remove other drains based on appearance of fluid and volume. Would leave surgical incisions open to air. No need to hold TF. Can resume TF and advance to goal. Please call with questions. Will follow along peripherally. Time=10min Subjective Date of service: 12/14/17 Patient Reports: Positive: other (no new events per staff) Objective Vital Signs - 12hr 12/14/17 12/14/17 12/14/17 03:00 04:00 05:00 Temperature 99.3 F Pulse Rate 81 77 89 Respiratory 27 H 25 H 28 H Rate Blood Pressure 141/83 132/69 148/84 O2 Sat by Pulse 100 100 100 Oximetry O2 Sat by Pulse Oximetry [ Assessment] 12/14/17 12/14/17 12/14/17 06:00 07:00 07:43 Temperature Pulse Rate 89 89 Respiratory 28 H 11 L Rate Blood Pressure 120/83 134/79 O2 Sat by Pulse 98 94 Oximetry O2 Sat by Pulse Oximetry [ Assessment] 12/14/17 12/14/17 12/14/17 07:45 08:00 09:01 Temperature 98.8 F Pulse Rate 98 H 96 H Respiratory 18 26 H Rate Blood Pressure 145/87 157/91 O2 Sat by Pulse 97 99 Oximetry O2 Sat by Pulse 100 Oximetry [ Assessment] 12/14/17 12/14/17 12/14/17 09:10 09:15 09:30 Temperature 98.2 F Pulse Rate 73 83 78 Respiratory 22 Rate Blood Pressure 136/72 142/70 147/77 O2 Sat by Pulse Oximetry O2 Sat by Pulse Oximetry [ Assessment] 12/14/17 12/14/17 12/14/17 09:45 10:00 10:15 Temperature Pulse Rate 91 H 79 83 Respiratory 22 Rate Blood Pressure 147/77 146/70 145/72 O2 Sat by Pulse 99 Oximetry O2 Sat by Pulse Oximetry [ Assessment] 12/14/17 12/14/17 12/14/17 10:30 10:45 11:00 Temperature Pulse Rate 91 H 95 H 87 Respiratory 25 H Rate Blood Pressure 151/89 161/80 161/80 O2 Sat by Pulse Oximetry O2 Sat by Pulse Oximetry [ Assessment] 12/14/17 12/14/17 12/14/17 11:15 11:30 11:45 Temperature Pulse Rate 108 H 98 H 108 H Respiratory Rate Blood Pressure 146/88 137/91 135/88 O2 Sat by Pulse Oximetry O2 Sat by Pulse Oximetry [ Assessment] 12/14/17 12/14/17 12/14/17 12:00 12:15 12:30 Temperature 97.9 F Pulse Rate 117 H 115 H 106 H Respiratory Rate Blood Pressure 125/84 127/86 112/68 O2 Sat by Pulse Oximetry O2 Sat by Pulse Oximetry [ Assessment] 12/14/17 12/14/17 12/14/17 12:45 13:00 13:16 Temperature 97.9 F Pulse Rate 116 H 94 H 108 H Respiratory 26 H Rate Blood Pressure 106/72 122/84 117/96 O2 Sat by Pulse Oximetry O2 Sat by Pulse Oximetry [ Assessment] - General physical appearance no distress, no pain, other (not interactive. ) - Respiratory normal expansion, normal respiratory effort - Abdomen soft, not tender, not distended, other (Left upper drain - minimal serous fluid - removed; Left lateral drain with some purulent appearing fluid; left lower drain and ODALYS drain with serosang fluid. ) - Integumentary no rash, no growths, no abnormal pigmentation - Labs 12/14/17 Unknown 12/14/17 05:11 Diabetes panel 12/14/17 Range/Units 05:11 Sodium 140 (137-145) mmol/L Potassium 4.2 (3.6-5.0) mmol/L Chloride 101.7 (98-107) mmol/L Carbon Dioxide 21 L (22-30) mmol/L BUN 26 H (9-20) mg/dL Creatinine 2.9 H (0.8-1.5) mg/dL Glucose 87 (75-100) mg/dL Calcium 7.2 L (8.4-10.2) mg/dL Calcium panel 12/14/17 Range/Units 05:11 Calcium 7.2 L (8.4-10.2) mg/dL Pituitary panel 12/14/17 Range/Units 05:11 Sodium 140 (137-145) mmol/L Potassium 4.2 (3.6-5.0) mmol/L Chloride 101.7 (98-107) mmol/L Carbon Dioxide 21 L (22-30) mmol/L BUN 26 H (9-20) mg/dL Creatinine 2.9 H (0.8-1.5) mg/dL Glucose 87 (75-100) mg/dL Calcium 7.2 L (8.4-10.2) mg/dL Adrenal panel 12/14/17 Range/Units 05:11 Sodium 140 (137-145) mmol/L Potassium 4.2 (3.6-5.0) mmol/L Chloride 101.7 (98-107) mmol/L Carbon Dioxide 21 L (22-30) mmol/L BUN 26 H (9-20) mg/dL Creatinine 2.9 H (0.8-1.5) mg/dL Glucose 87 (75-100) mg/dL Calcium 7.2 L (8.4-10.2) mg/dL
[2017-12-14] MEDS: LOPRESSOR PO SCH ×2 (14:55→21:53)
[2017-12-14 16:19] LABS: Hematocrit 26.2 % (35.5-45.6); Hemoglobin 8.2 gm/dl (11.8-15.2); Mean Corpuscular HGB Conc 31 % (32-34); Mean Corpuscular Volume 81 fl (84-94); Platelet Count 156 K/mm3 (140-440); Red Blood Count 3.25 M/mm3 (3.65-5.03); Red Cell Distribution Width 19.2 % (13.2-15.2)
[2017-12-14 16:20] LABS: Mean Corpuscular Hemoglobin 25 pg (28-32)
--- NOTE | 2017-12-14 18:03 | Progress Note ---
Assessment and Plan Peritonitis and possible intra-abdominal abscess - likely from dislodged peg tube - removed PEG tube on 11/22 - peritoneal Fluid positive for Enterobacter, Heather (non albicans) - Antibiotic managed by ID - s/p multiple intraabdominal drainages placed by IR and GS. also had abdominal washout by GS - last drainage was placed on 12/06 by IR - Removed left upper drain today Acute on chronic respiratory failure with hypoxia - likely due to aspiration and PNA - Status post tracheostomy, currently on T-piece - Pulmonology following Severe sepsis with shock likely secondary to aspiration pneumonia -Off IV pressors -Blood and sputum cultures negative Aspiration pneumonia with mucus plugging -treated with zosyn Acute kidney injury secondary to ATN -on Intermittent HD started on 11/23/17 with vascath -Creatinine level improved -Nephrology following Anemia of acute loss secondary to gastric ulcer and gastritis -Status post EGD on 11/18/2017 -Status post blood transfusion -H/H stable, will monitor Acute encephalopathy, likely multifactorial -Will continue to monitor clinically -Prognosis is poor Hypernatremia -Resolved Hypokalemia -We cont to monitor level and replete as needed Hypomagnesemia -Resolved status post repletion Oropharyngeal dysphagia -Status post PEG tube placement on 11/06, now removed -On tube feeding with dobhoff - will need PEg tube before discharge History of recent CVA -Not on aspirin due to recent bleed RT ICA stenosis -s/p recent endarterectomy Disposition: Patient overall prognosis remains poor. Continue management Brief History 67yo M with history CVA, a PEG tube placed by GI on 11/06 presented (11/12) from rehab for respiratory failure, sepsis, hypotension and multilober PNA. Recent work-up for hypotension showed a dislodged PEG tube on CT scan with extraluminal PO contrast that was limited to the upper abdomen and left gutter. Pt had an EGD on 11/18 that did not show the PEG button or an obvious hole in the stomach. There was no free air noted on CXR's. Pt had IR guided drainage placed in the 3 different locations of abdomen. He is now s/p trach by ENT. Recent Ct abdoemn/pelvis on 12/04/17 showed persistent abdominal collection of abscess/fluid and s/p repeat drainage 12/06/17 Hospitalist Physical General appearance: Present: no acute distress - EENT Eyes: Present: PERRL ENT: clear oral mucosa - Neck Neck: Present: supple, other (status post tracheostomy on T-piece) - Respiratory Respiratory effort: normal Respiratory: bilateral: CTA - Cardiovascular Rhythm: other (tachycardia) Heart Sounds: Present: S1 & S2 - Extremities Extremity abnormal: edema (in BLE) - Abdominal General gastrointestinal: non-distended, distended, normal bowel sounds, other ( firm on palpation), total [address] on the left side of - Neurologic Neurologic: other (patient is awake but unable to follow commands) Subjective Date of service: 12/14/17 Principal diagnosis: Acute hypoxic respiratory failure, s/p Trach Interval history: Pt seen and examined, nonverbal No acute event reported by RN discussed plan of care with RN at bedside drainage significantly reduced and Improving clinically Objective - Constitutional Vitals: Vital Signs - 12hr 12/14/17 12/14/17 12/14/17 07:00 07:43 07:45 Temperature Pulse Rate 89 Respiratory 11 L Rate Blood Pressure 134/79 O2 Sat by Pulse 98 94 Oximetry O2 Sat by Pulse 100 Oximetry [ Assessment] 12/14/17 12/14/17 12/14/17 08:00 09:01 09:10 Temperature 98.8 F 98.2 F Pulse Rate 98 H 96 H 73 Respiratory 18 26 H 22 Rate Blood Pressure 145/87 157/91 136/72 O2 Sat by Pulse 100 99 Oximetry O2 Sat by Pulse Oximetry [ Assessment] 12/14/17 12/14/17 12/14/17 09:15 09:30 09:45 Temperature Pulse Rate 83 78 91 H Respiratory Rate Blood Pressure 142/70 147/77 147/77 O2 Sat by Pulse Oximetry O2 Sat by Pulse Oximetry [ Assessment] 12/14/17 12/14/17 12/14/17 10:00 10:15 10:30 Temperature Pulse Rate 79 83 91 H Respiratory 22 Rate Blood Pressure 146/70 145/72 151/89 O2 Sat by Pulse 99 Oximetry O2 Sat by Pulse Oximetry [ Assessment] 12/14/17 12/14/17 12/14/17 10:45 11:00 11:15 Temperature Pulse Rate 95 H 87 108 H Respiratory 25 H Rate Blood Pressure 161/80 161/80 146/88 O2 Sat by Pulse Oximetry O2 Sat by Pulse Oximetry [ Assessment] 12/14/17 12/14/17 12/14/17 11:30 11:45 12:00 Temperature 97.9 F Pulse Rate 98 H 108 H 107 H Respiratory 25 H Rate Blood Pressure 137/91 135/88 125/84 O2 Sat by Pulse 100 Oximetry O2 Sat by Pulse Oximetry [ Assessment] 12/14/17 12/14/17 12/14/17 12:15 12:30 12:45 Temperature Pulse Rate 115 H 106 H 116 H Respiratory Rate Blood Pressure 127/86 112/68 106/72 O2 Sat by Pulse Oximetry O2 Sat by Pulse Oximetry [ Assessment] 12/14/17 12/14/17 12/14/17 13:00 13:16 14:00 Temperature 97.9 F Pulse Rate 120 H 108 H 94 H Respiratory 30 H 26 H 24 Rate Blood Pressure 122/84 117/96 124/76 O2 Sat by Pulse 99 98 Oximetry O2 Sat by Pulse Oximetry [ Assessment] 12/14/17 12/14/17 12/14/17 14:55 15:00 16:00 Temperature 98.1 F Pulse Rate 102 H 85 92 H Respiratory 23 25 H Rate Blood Pressure 135/75 135/75 148/95 O2 Sat by Pulse 100 100 Oximetry O2 Sat by Pulse Oximetry [ Assessment] 12/14/17 17:00 Temperature Pulse Rate 81 Respiratory 23 Rate Blood Pressure 137/74 O2 Sat by Pulse 100 Oximetry O2 Sat by Pulse Oximetry [ Assessment] - Labs CBC & Chem 7: 12/14/17 Unknown 12/14/17 05:11 Labs: Abnormal lab results 12/13/17 12/14/17 12/14/17 Range/Units 23:39 05:11 05:11 WBC (4.5-11.0) K/mm3 RBC (3.65-5.03) M/mm3 Hgb (11.8-15.2) gm/dl Hct (35.5-45.6) % MCV (84-94) fl MCH (28-32) pg MCHC (32-34) % RDW (13.2-15.2) % Plt Count (140-440) K/mm3 Lymph % (Auto) (13.4-35.0) % [place] % (Auto) (0.0-7.3) % Eos % (Auto) (0.0-4.3) % Lymph # (1.2-5.4) K/mm3 [place] # (0.0-0.8) K/mm3 Eos # (0.0-0.4) K/mm3 Seg Neutrophils % (40.0-70.0) % Seg Neutrophils # (1.8-7.7) K/mm3 PT 15.4 H (12.2-14.9) Sec. INR 1.17 H (0.87-1.13) Carbon Dioxide 21 L (22-30) mmol/L BUN 26 H (9-20) mg/dL Creatinine 2.9 H (0.8-1.5) mg/dL POC Glucose 108 H (70-105) Calcium 7.2 L (8.4-10.2) mg/dL 12/14/17 12/14/17 12/14/17 Range/Units 12:00 16:01 Unknown WBC 12.9 H 12.5 H (4.5-11.0) K/mm3 RBC 3.25 L 2.48 L (3.65-5.03) M/mm3 Hgb 8.2 L 6.0 L (11.8-15.2) gm/dl Hct 26.2 L 24.4 L (35.5-45.6) % MCV 81 L 79 L (84-94) fl MCH 25 L 24 L (28-32) pg MCHC 31 L 30 L (32-34) % RDW 19.2 H 18.5 H (13.2-15.2) % Plt Count 131 L (140-440) K/mm3 Lymph % (Auto) 7.0 L (13.4-35.0) % [place] % (Auto) 8.9 H (0.0-7.3) % Eos % (Auto) 8.3 H (0.0-4.3) % Lymph # 0.9 L (1.2-5.4) K/mm3 [place] # 1.1 H (0.0-0.8) K/mm3 Eos # 1.0 H (0.0-0.4) K/mm3 Seg Neutrophils % 75.2 H (40.0-70.0) % Seg Neutrophils # 9.4 H (1.8-7.7) K/mm3 PT (12.2-14.9) Sec. INR (0.87-1.13) Carbon Dioxide (22-30) mmol/L BUN (9-20) mg/dL Creatinine (0.8-1.5) mg/dL POC Glucose 138 H (70-105) Calcium (8.4-10.2) mg/dL
[2017-12-15] MEDS: PREVACID SOLUTAB FEEDTUBE SCH ×2 (10:04→21:13)
[2017-12-15] MEDS: DIFLUCAN FEEDTUBE SCH (10:04)
[2017-12-15] MEDS: LOPRESSOR PO SCH ×2 (10:05→21:14)
[2017-12-15] MEDS: MERREM 1,000 MG in NACL 0.9% 100 ML IV SCH (10:05)
--- NOTE | 2017-12-15 12:34 | Progress Note ---
Assessment and Plan Assessment and plan: Peritonitis and possible intra-abdominal abscess - likely from dislodged peg tube - removed PEG tube on 11/22 - peritoneal Fluid positive for Enterobacter, Heather (non albicans) - Antibiotics managed by ID - s/p multiple intraabdominal drainages placed by IR and GS. Also had abdominal washout by GS - last drainage was placed on 12/06 by IR - Removed left upper drain today Acute on chronic respiratory failure with hypoxia - likely due to aspiration and PNA - Status post tracheostomy, currently on T-piece - Pulmonology following Severe sepsis with shock likely secondary to aspiration pneumonia -Off IV pressors -Blood and sputum cultures negative Aspiration pneumonia with mucus plugging -treated with zosyn Acute kidney injury secondary to ATN -on Intermittent HD started on 11/23/17 via vascath -Creatinine level improved -Nephrology following Anemia of acute loss secondary to gastric ulcer and gastritis -Status post EGD on 11/18/2017 -Status post blood transfusion -H/H on 12/14/2017 trended down to 6/24.4, will repeat his H&H today and transfuse as needed Acute encephalopathy, likely multifactorial -Will continue to monitor clinically -Prognosis is poor Hypernatremia -Resolved Hypokalemia -Resolved Hypomagnesemia -Resolved status post repletion Oropharyngeal dysphagia -Status post PEG tube placement on 11/06, now removed -On tube feeding with dobhoff -will need PEg tube before discharge History of recent CVA -Not on aspirin due to recent bleed RT ICA stenosis -s/p recent endarterectomy Disposition: Patient overall prognosis remains poor. Continue management History Interval history: Patient is nonverbal. Her nurse reported open wound on the right side of the neck. Hospitalist Physical - Constitutional Vitals: Temp Pulse Resp BP Pulse Ox 98.9 F 86 25 H 126/73 99 12/15/17 12:00 12/15/17 11:00 12/15/17 11:00 12/15/17 11:00 12/15/17 11:00 General appearance: Present: no acute distress - EENT Eyes: Present: PERRL ENT: clear oral mucosa - Neck Neck: Present: supple, other (status post tracheostomy on t-piece) - Respiratory Respiratory: bilateral: rales - Cardiovascular Rhythm: regular Heart Sounds: Present: S1 & S2 - Extremities Extremity abnormal: edema (both feet) - Abdominal General gastrointestinal: non-tender, distended (and firm on palpation), other ( percut drains noted) - Neurologic Neurologic: other (patient is non-verbal) Results - Labs CBC & Chem 7: 12/14/17 Unknown 12/14/17 05:11 Labs: Laboratory Last Values WBC 12.5 K/mm3 (4.5-11.0) H 12/14/17 Unknown RBC 2.48 M/mm3 (3.65-5.03) L 12/14/17 Unknown Hgb 6.0 gm/dl (11.8-15.2) L 12/14/17 Unknown Hct 24.4 % (35.5-45.6) L 12/14/17 Unknown MCV 79 fl (84-94) L 12/14/17 Unknown MCH 24 pg (28-32) L 12/14/17 Unknown MCHC 30 % (32-34) L 12/14/17 Unknown RDW 18.5 % (13.2-15.2) H 12/14/17 Unknown Plt Count 131 K/mm3 (140-440) L 12/14/17 Unknown Lymph % (Auto) 7.0 % (13.4-35.0) L 12/14/17 Unknown [place] % (Auto) 8.9 % (0.0-7.3) H 12/14/17 Unknown Eos % (Auto) 8.3 % (0.0-4.3) H 12/14/17 Unknown Baso % (Auto) 0.6 % (0.0-1.8) 12/14/17 Unknown Lymph # 0.9 K/mm3 (1.2-5.4) L 12/14/17 Unknown [place] # 1.1 K/mm3 (0.0-0.8) H 12/14/17 Unknown Eos # 1.0 K/mm3 (0.0-0.4) H 12/14/17 Unknown Baso # 0.1 K/mm3 (0.0-0.1) 12/14/17 Unknown Add Manual Diff Complete 12/12/17 05:41 Total Counted 100 12/12/17 05:41 Seg Neutrophils % 75.2 % (40.0-70.0) H 12/14/17 Unknown Seg Neuts % (Manual) 74.0 % (40.0-70.0) H 12/12/17 05:41 Band Neutrophils % 6.0 % 12/12/17 05:41 Lymphocytes % (Manual) 6.0 % (13.4-35.0) L 12/12/17 05:41 Reactive Lymphs % (Man) 0 % 12/12/17 05:41 Monocytes % (Manual) 2.0 % (0.0-7.3) 12/12/17 05:41 Eosinophils % (Manual) 9.0 % (0.0-4.3) H 12/12/17 05:41 Basophils % (Manual) 0 % (0.0-1.8) 12/12/17 05:41 Metamyelocytes % 3.0 % 12/12/17 05:41 Myelocytes % 0 % 12/12/17 05:41 Promyelocytes % 0 % 12/12/17 05:41 Blast Cells % 0 % 12/12/17 05:41 Nucleated RBC % Not Reportable 12/12/17 05:41 Seg Neutrophils # 9.4 K/mm3 (1.8-7.7) H 12/14/17 Unknown Seg Neutrophils # Man 7.7 K/mm3 (1.8-7.7) 12/12/17 05:41 Band Neutrophils # 0.6 K/mm3 12/12/17 05:41 Lymphocytes # (Manual) 0.6 K/mm3 (1.2-5.4) L 12/12/17 05:41 Abs React Lymphs (Man) 0.0 K/mm3 12/12/17 05:41 Monocytes # (Manual) 0.2 K/mm3 (0.0-0.8) 12/12/17 05:41 Eosinophils # (Manual) 0.9 K/mm3 (0.0-0.4) H 12/12/17 05:41 Basophils # (Manual) 0.0 K/mm3 (0.0-0.1) 12/12/17 05:41 Metamyelocytes # 0.3 K/mm3 12/12/17 05:41 Myelocytes # 0.0 K/mm3 12/12/17 05:41 Promyelocytes # 0.0 K/mm3 12/12/17 05:41 Blast Cells # 0.0 K/mm3 12/12/17 05:41 WBC Morphology Not Reportable 12/12/17 05:41 Hypersegmented Neuts Not Reportable 12/12/17 05:41 Hyposegmented Neuts Not Reportable 12/12/17 05:41 Hypogranular Neuts Not Reportable 12/12/17 05:41 Smudge Cells Not Reportable 12/12/17 05:41 Toxic Granulation Not Reportable 12/12/17 05:41 Toxic Vacuolation Not Reportable 12/12/17 05:41 Dohle Bodies Not Reportable 12/12/17 05:41 Pelger-Huet Anomaly Not Reportable 12/12/17 05:41 Evangelina Rods Not Reportable 12/12/17 05:41 Platelet Estimate Consistent w auto 12/12/17 05:41 Clumped Platelets Not Reportable 12/12/17 05:41 Plt Clumps, EDTA Not Reportable 12/12/17 05:41 Large Platelets Not Reportable 12/12/17 05:41 Giant Platelets Not Reportable 12/12/17 05:41 Platelet Satelliting Not Reportable 12/12/17 05:41 Plt Morphology Comment Not Reportable 12/12/17 05:41 RBC Morphology Not Reportable 12/12/17 05:41 Dimorphic RBCs Not Reportable 12/12/17 05:41 Polychromasia 1+ 12/12/17 05:41 Hypochromasia Few 12/12/17 05:41 Poikilocytosis Not Reportable 12/12/17 05:41 Anisocytosis 1+ 12/12/17 05:41 Microcytosis Few 12/12/17 05:41 Macrocytosis Not Reportable 12/12/17 05:41 Spherocytes Not Reportable 12/12/17 05:41 Pappenheimer Bodies Not Reportable 12/12/17 05:41 Sickle Cells Not Reportable 12/12/17 05:41 Target Cells Not Reportable 12/12/17 05:41 Tear Drop Cells Not Reportable 12/12/17 05:41 Ovalocytes Not Reportable 12/12/17 05:41 Stomatocytes 1+ 12/12/17 05:41 Helmet Cells Not Reportable 12/12/17 05:41 [place] Bodies Not Reportable 12/12/17 05:41 [place] Rings Not Reportable 12/12/17 05:41 Deposit Cells Not Reportable 12/12/17 05:41 Bite Cells Not Reportable 12/12/17 05:41 Crenated Cell Not Reportable 12/12/17 05:41 Elliptocytes Not Reportable 12/12/17 05:41 Acanthocytes (Spur) Not Reportable 12/12/17 05:41 Rouleaux Not Reportable 12/12/17 05:41 Hemoglobin C Crystals Not Reportable 12/12/17 05:41 Schistocytes Not Reportable 12/12/17 05:41 Malaria parasites Not Reportable 12/12/17 05:41 [place] Bodies Not Reportable 12/12/17 05:41 Hem Pathologist Commnt No 12/12/17 05:41 PT 15.4 Sec. (12.2-14.9) H 12/14/17 05:11 INR 1.17 (0.87-1.13) H 12/14/17 05:11 APTT 33.8 Sec. (24.2-36.6) 11/26/17 06:29 POC ABG pH 7.505 (7.35-7.45) H 11/23/17 04:56 POC ABG pCO2 26.3 (35-45) L 11/23/17 04:56 POC ABG pO2 100 (80-105) 11/23/17 04:56 POC ABG HCO3 20.8 11/23/17 04:56 POC ABG Total CO2 22 11/23/17 04:56 POC ABG O2 Sat 98 11/23/17 04:56 POC ABG Base Excess -2 11/23/17 04:56 FiO2 30 % 11/23/17 04:56 Sodium 140 mmol/L (137-145) 12/14/17 05:11 Potassium 4.2 mmol/L (3.6-5.0) 12/14/17 05:11 Chloride 101.7 mmol/L (98-107) 12/14/17 05:11 Carbon Dioxide 21 mmol/L (22-30) L 12/14/17 05:11 Anion Gap 22 mmol/L 12/14/17 05:11 BUN 26 mg/dL (9-20) H 12/14/17 05:11 Creatinine 2.9 mg/dL (0.8-1.5) H 12/14/17 05:11 Estimated GFR 26 ml/min 12/14/17 05:11 BUN/Creatinine Ratio 9 % 12/14/17 05:11 Glucose 87 mg/dL (75-100) 12/14/17 05:11 POC Glucose 106 (70-105) H 12/15/17 11:50 Lactic Acid 1.80 mmol/L (0.7-2.0) 11/27/17 04:06 Calcium 7.2 mg/dL (8.4-10.2) L 12/14/17 05:11 Phosphorus 2.60 mg/dL (2.5-4.5) 12/11/17 15:26 Magnesium 2.00 mg/dL (1.7-2.3) 11/24/17 21:53 Total Bilirubin 0.90 mg/dL (0.1-1.2) 11/24/17 21:53 AST 170 units/L (5-40) H 11/24/17 21:53 ALT 179 units/L (7-56) H 11/24/17 21:53 Alkaline Phosphatase 175 units/L (35-129) H 11/24/17 21:53 Total Creatine Kinase 84 units/L (55-170) 11/12/17 20:03 CK-MB (CK-2) < 1.0 ng/mL (0.0-4.0) 11/12/17 20:03 CK-MB (CK-2) Rel Index 1.1 (0-4) 11/12/17 20:03 Troponin T 0.098 ng/mL (0.00-0.029) H 11/12/17 Unknown C-Reactive Protein 25.70 mg/dL (0.00-1.30) H 11/11/17 23:20 NT-Pro-B Natriuret Pep 792.4 pg/mL (0-900) 11/11/17 23:20 Total Protein 5.5 g/dL (6.3-8.2) L 11/24/17 21:53 Albumin 1.8 g/dL (3.9-5) L 11/24/17 21:53 Albumin/Globulin Ratio 0.5 % 11/24/17 21:53 Triglycerides 86 mg/dL (2-149) 11/11/17 23:20 Cholesterol 82 mg/dL (50-199) 11/11/17 23:20 LDL Cholesterol Direct 42 mg/dL (50-130) L 11/11/17 23:20 HDL Cholesterol 24 mg/dL (40-59) L 11/11/17 23:20 Cholesterol/HDL Ratio 3.41 % 11/11/17 23:20 Lipase 30 units/L (13-60) 11/11/17 23:20 Urine Color [place] (Yellow) 11/11/17 23:09 Urine Turbidity Cloudy (Clear) 11/11/17 23:09 Urine pH 5.0 (5.0-7.0) 11/11/17 23:09 Ur Specific [place] 1.025 (1.003-1.030) 11/11/17 23:09 Urine Protein 100 mg/dl mg/dL (Negative) 11/11/17 23:09 Urine Glucose (UA) 50 mg/dL (Negative) 11/11/17 23:09 Urine Ketones Neg mg/dL (Negative) 11/11/17 23:09 Urine Blood Neg (Negative) 11/11/17 23:09 Urine Nitrite Neg (Negative) 11/11/17 23:09 Urine Bilirubin Neg (Negative) 11/11/17 23:09 Urine Urobilinogen 4.0 mg/dL (<2.0) 11/11/17 23:09 Ur Leukocyte Esterase Neg (Negative) 11/11/17 23:09 Urine WBC (Auto) 5.0 /HPF (0.0-6.0) 11/11/17 23:09 Urine RBC (Auto) 4.0 /HPF (0.0-6.0) 11/11/17 23:09 Urine Bacteria (Auto) 3+ /HPF (Negative) 11/11/17 23:09 Amorphous Crystals 3+ 11/11/17 23:09 Hyaline Casts 76 /LPF 11/11/17 23:09 Urine Mucus 2+ /HPF 11/11/17 23:09 Hepatitis A IgM Ab Non-reactive (NonReactive) 11/22/17 19:45 Hep Bs Antigen Non-reactive (Negative) 11/22/17 19:45 Hep B Core IgM Ab Non-reactive (NonReactive) 11/22/17 19:45 Hepatitis C Antibody Reactive (NonReactive) A 11/22/17 19:45 Blood Type A POSITIVE 11/24/17 08:27 Antibody Screen Negative 11/24/17 08:27 Crossmatch See Detail 11/24/17 08:27
--- NOTE | 2017-12-15 12:55 | Progress Note ---
Assessment and Plan Assessment * Acute kidney injury secondary to ATN --Intermittent HD started on 11/23/17 * Sepsis secondary to peritonitis/PEG malpositioning --RUQ/LUQ drains: Enterobacter, Heather (non albicans) * Aspiration pneumonitis related to above * Anemia * Acute CVA * Carotid artery disease s/p CEA * Encephalopathy Plan: * No evidence of renal recovery * Continue HD MWF. UF as tolerated * Abx per ID * hb noted, prbcs prn * uf as tolerated with HD * IR and surgery notes reviewed * Strict I/O * Avoid potential nephrptoxins * Dose medications for renal function * Replete lytes prn * Avoid nephrotoxins Subjective Date of service: 12/15/17 Principal diagnosis: Acute hypoxic respiratory failure, s/p Trach Interval history: new consult noted, last seen 11/09 with normal renal function Objective - Exam Narrative Exam: Constitutional: lethargic, other (intubated) Eyes: non-icteric ENT: oropharynx moist, other (ETT at 24 cm) Neck: supple, no JVD Ascultation: Bilateral: rhonchi (bilateral LT >>RT) Cardiovascular: regular rate and rhythm, other (tachycardic) Gastrointestinal: normoactive bowel sounds, non-distended Integumentary: normal Extremities: no cyanosis, no edema, other (RT femoral line in place) Neurologic: unable to assess (opens eyes spontaneously but does not follow commands . ) - Vital Signs Vital signs: Vital Signs - 12hr 12/15/17 12/15/17 12/15/17 01:00 02:00 03:00 Temperature Pulse Rate 90 75 77 Pulse Rate [ Right From Monitor] Respiratory 21 21 20 Rate Blood Pressure 164/85 131/69 133/65 O2 Sat by Pulse 98 100 100 Oximetry O2 Sat by Pulse Oximetry [ Assessment] 12/15/17 12/15/17 12/15/17 03:57 04:00 05:00 Temperature 98.6 F Pulse Rate 91 H 85 Pulse Rate [ Right From Monitor] Respiratory 21 22 Rate Blood Pressure 136/74 137/66 O2 Sat by Pulse 100 100 Oximetry O2 Sat by Pulse Oximetry [ Assessment] 12/15/17 12/15/17 12/15/17 06:00 07:00 07:38 Temperature 98.5 F Pulse Rate 99 H 88 Pulse Rate [ Right From Monitor] Respiratory 20 16 Rate Blood Pressure 147/84 127/72 O2 Sat by Pulse 100 100 Oximetry O2 Sat by Pulse Oximetry [ Assessment] 12/15/17 12/15/17 12/15/17 08:00 09:00 10:00 Temperature Pulse Rate 92 H 101 H 88 Pulse Rate [ 82 Right From Monitor] Respiratory 24 25 H 24 Rate Blood Pressure 128/72 143/78 116/64 O2 Sat by Pulse 100 99 99 Oximetry O2 Sat by Pulse Oximetry [ Assessment] 12/15/17 12/15/17 12/15/17 10:05 10:14 10:16 Temperature Pulse Rate 102 H Pulse Rate [ Right From Monitor] Respiratory Rate Blood Pressure 116/64 O2 Sat by Pulse 100 Oximetry O2 Sat by Pulse 100 Oximetry [ Assessment] 12/15/17 12/15/17 11:00 12:00 Temperature 98.9 F Pulse Rate 86 Pulse Rate [ Right From Monitor] Respiratory 25 H Rate Blood Pressure 126/73 O2 Sat by Pulse 99 Oximetry O2 Sat by Pulse Oximetry [ Assessment] - Lab 12/14/17 Unknown 12/14/17 05:11 Most recent lab results Calcium 7.2 mg/dL (8.4-10.2) L 12/14/17 05:11 Phosphorus 2.60 mg/dL (2.5-4.5) 12/11/17 15:26 Magnesium 2.00 mg/dL (1.7-2.3) 11/24/17 21:53
[2017-12-15 13:42] LABS: Hematocrit 23.3 % (35.5-45.6); Hemoglobin 7.3 gm/dl (11.8-15.2)
--- NOTE | 2017-12-15 18:23 | Progress Note ---
Assessment and Plan 67 y/o male with acute on chronic respiratory failure, now trached, with peritonitis from dislodged peg tube s/p 2 IR drains now with NGT feedings now spiking fevers again. 1. Trach Care 2. IV abx therapy 3. Will continue to follow Subjective Date of service: 12/15/17 Principal diagnosis: Acute hypoxic respiratory failure, s/p Trach Interval history: No acute events. HgB is 7.3. Did not get transfused. Pulm status is unchanged. Objective Vital Signs - 12hr 12/15/17 12/15/17 12/15/17 07:00 07:38 08:00 Temperature 98.5 F Pulse Rate 88 92 H Pulse Rate [ 82 Right From Monitor] Respiratory 16 24 Rate Blood Pressure 127/72 128/72 O2 Sat by Pulse 100 100 Oximetry O2 Sat by Pulse Oximetry [ Assessment] 12/15/17 12/15/17 12/15/17 09:00 10:00 10:05 Temperature Pulse Rate 101 H 88 102 H Pulse Rate [ Right From Monitor] Respiratory 25 H 24 Rate Blood Pressure 143/78 116/64 116/64 O2 Sat by Pulse 99 99 Oximetry O2 Sat by Pulse Oximetry [ Assessment] 12/15/17 12/15/17 12/15/17 10:14 10:16 11:00 Temperature Pulse Rate 86 Pulse Rate [ Right From Monitor] Respiratory 25 H Rate Blood Pressure 126/73 O2 Sat by Pulse 100 99 Oximetry O2 Sat by Pulse 100 Oximetry [ Assessment] 12/15/17 12/15/17 12/15/17 11:39 12:00 13:00 Temperature 98.9 F Pulse Rate 93 H 99 H 98 H Pulse Rate [ Right From Monitor] Respiratory 28 H 26 H Rate Blood Pressure 125/70 119/80 O2 Sat by Pulse 100 100 Oximetry O2 Sat by Pulse Oximetry [ Assessment] 12/15/17 12/15/17 12/15/17 14:00 15:00 15:47 Temperature 99.0 F Pulse Rate 72 78 Pulse Rate [ Right From Monitor] Respiratory 23 22 Rate Blood Pressure 107/86 115/82 O2 Sat by Pulse Oximetry O2 Sat by Pulse Oximetry [ Assessment] 12/15/17 18:10 Temperature Pulse Rate Pulse Rate [ Right From Monitor] Respiratory Rate Blood Pressure O2 Sat by Pulse Oximetry O2 Sat by Pulse 100 Oximetry [ Assessment] Constitutional: no acute distress, alert Eyes: non-icteric ENT: oropharynx moist Neck: supple (trach in position), no JVD Effort: normal Ascultation: Bilateral: clear, rhonchi (bilateral,post tussive), other (coarse BS bilaterally) Cardiovascular: regular rate and rhythm Gastrointestinal: normoactive bowel sounds, soft, non-tender, other (drainages in place) Integumentary: normal Extremities: no cyanosis, pink and warm, anasarca Neurologic: other (L hemiparesis,awake, response to my voice) Psychiatric: other (unable to assess) CBC and BMP: 12/15/17 13:37 12/14/17 05:11 ABG, PT/INR, D-dimer: ABG POC ABG pH 7.505 (7.35-7.45) H 11/23/17 04:56 POC ABG pCO2 26.3 (35-45) L 11/23/17 04:56 POC ABG pO2 100 (80-105) 11/23/17 04:56 POC ABG HCO3 20.8 11/23/17 04:56 POC ABG Total CO2 22 11/23/17 04:56 POC ABG O2 Sat 98 11/23/17 04:56 PT/INR, D-dimer PT 15.4 Sec. (12.2-14.9) H 12/14/17 05:11 INR 1.17 (0.87-1.13) H 12/14/17 05:11 Abnormal lab findings: Abnormal Labs 11/11/17 11/11/17 11/11/17 23:18 23:20 23:20 WBC RBC Hgb 10.4 L Hct 32.6 L D MCV MCH 27 L MCHC RDW 17.4 H Plt Count 105 L Lymph % (Auto) Cole % (Auto) Eos % (Auto) Lymph # Cole # Eos # Seg Neutrophils % Seg Neuts % (Manual) Lymphocytes % (Manual) 8.0 L Monocytes % (Manual) Eosinophils % (Manual) Nucleated RBC % 1.0 H Seg Neutrophils # Seg Neutrophils # Man Lymphocytes # (Manual) 0.7 L Monocytes # (Manual) Eosinophils # (Manual) PT INR POC ABG pH 7.550 H POC ABG pCO2 31.6 L POC ABG pO2 Sodium 146 H Potassium Chloride Carbon Dioxide BUN 26 H Creatinine 1.7 H D Glucose 133 H POC Glucose Lactic Acid Calcium Magnesium AST ALT Alkaline Phosphatase Troponin T 0.117 H* C-Reactive Protein Total Protein Albumin 2.5 L LDL Cholesterol Direct 42 L HDL Cholesterol 24 L Hepatitis C Antibody Crossmatch 11/11/17 11/12/17 11/12/17 23:20 00:23 00:23 WBC RBC Hgb Hct MCV MCH MCHC RDW Plt Count Lymph % (Auto) Cole % (Auto) Eos % (Auto) Lymph # Cole # Eos # Seg Neutrophils % Seg Neuts % (Manual) Lymphocytes % (Manual) Monocytes % (Manual) Eosinophils % (Manual) Nucleated RBC % Seg Neutrophils # Seg Neutrophils # Man Lymphocytes # (Manual) Monocytes # (Manual) Eosinophils # (Manual) PT 16.7 H INR 1.28 H POC ABG pH POC ABG pCO2 POC ABG pO2 Sodium Potassium Chloride Carbon Dioxide BUN Creatinine Glucose POC Glucose Lactic Acid 3.20 H* Calcium Magnesium AST ALT Alkaline Phosphatase Troponin T C-Reactive Protein 25.70 H Total Protein Albumin LDL Cholesterol Direct HDL Cholesterol Hepatitis C Antibody Crossmatch 11/12/17 11/12/17 11/12/17 00:46 01:27 01:27 WBC RBC Hgb Hct MCV MCH MCHC RDW Plt Count Lymph % (Auto) Cole % (Auto) Eos % (Auto) Lymph # Cole # Eos # Seg Neutrophils % Seg Neuts % (Manual) Lymphocytes % (Manual) Monocytes % (Manual) Eosinophils % (Manual) Nucleated RBC % Seg Neutrophils # Seg Neutrophils # Man Lymphocytes # (Manual) Monocytes # (Manual) Eosinophils # (Manual) PT INR POC ABG pH 7.495 H POC ABG pCO2 32.0 L POC ABG pO2 64 L Sodium Potassium Chloride Carbon Dioxide BUN Creatinine Glucose POC Glucose Lactic Acid 3.70 H* Calcium Magnesium AST ALT Alkaline Phosphatase Troponin T 0.096 H C-Reactive Protein Total Protein Albumin LDL Cholesterol Direct HDL Cholesterol Hepatitis C Antibody Crossmatch 11/12/17 11/12/17 11/12/17 03:21 04:50 06:27 WBC RBC Hgb Hct MCV MCH MCHC RDW Plt Count Lymph % (Auto) Cole % (Auto) Eos % (Auto) Lymph # Cole # Eos # Seg Neutrophils % Seg Neuts % (Manual) Lymphocytes % (Manual) Monocytes % (Manual) Eosinophils % (Manual) Nucleated RBC % Seg Neutrophils # Seg Neutrophils # Man Lymphocytes # (Manual) Monocytes # (Manual) Eosinophils # (Manual) PT INR POC ABG pH POC ABG pCO2 POC ABG pO2 109 H Sodium Potassium Chloride Carbon Dioxide BUN Creatinine Glucose POC Glucose Lactic Acid 3.80 H* 2.20 H* Calcium Magnesium AST ALT Alkaline Phosphatase Troponin T C-Reactive Protein Total Protein Albumin LDL Cholesterol Direct HDL Cholesterol Hepatitis C Antibody Crossmatch 11/12/17 11/12/17 11/12/17 09:24 09:24 09:24 WBC RBC Hgb 10.4 L Hct 33.4 L MCV MCH MCHC RDW Plt Count Lymph % (Auto) Cole % (Auto) Eos % (Auto) Lymph # Cole # Eos # Seg Neutrophils % Seg Neuts % (Manual) Lymphocytes % (Manual) Monocytes % (Manual) Eosinophils % (Manual) Nucleated RBC % Seg Neutrophils # Seg Neutrophils # Man Lymphocytes # (Manual) Monocytes # (Manual) Eosinophils # (Manual) PT INR POC ABG pH POC ABG pCO2 POC ABG pO2 Sodium Potassium Chloride Carbon Dioxide BUN Creatinine Glucose POC Glucose Lactic Acid 2.90 H* Calcium Magnesium AST ALT Alkaline Phosphatase Troponin T 0.091 H C-Reactive Protein Total Protein Albumin LDL Cholesterol Direct HDL Cholesterol Hepatitis C Antibody Crossmatch 11/12/17 11/12/17 11/12/17 12:56 20:03 Unknown WBC RBC Hgb Hct MCV MCH MCHC RDW Plt Count Lymph % (Auto) Cole % (Auto) Eos % (Auto) Lymph # Cole # Eos # Seg Neutrophils % Seg Neuts % (Manual) Lymphocytes % (Manual) Monocytes % (Manual) Eosinophils % (Manual) Nucleated RBC % Seg Neutrophils # Seg Neutrophils # Man Lymphocytes # (Manual) Monocytes # (Manual) Eosinophils # (Manual) PT INR POC ABG pH POC ABG pCO2 POC ABG pO2 Sodium Potassium Chloride Carbon Dioxide BUN Creatinine Glucose POC Glucose Lactic Acid 3.60 H* Calcium Magnesium AST ALT Alkaline Phosphatase Troponin T 0.102 H* 0.156 H* D C-Reactive Protein Total Protein Albumin LDL Cholesterol Direct HDL Cholesterol Hepatitis C Antibody Crossmatch 11/12/17 11/13/17 11/13/17 Unknown 04:50 04:50 WBC 12.2 H RBC 3.51 L Hgb 9.3 L Hct 30.1 L MCV MCH 26 L MCHC 31 L RDW 18.0 H Plt Count 128 L Lymph % (Auto) 8.6 L Cole % (Auto) 11.1 H Eos % (Auto) Lymph # 1.1 L Cole # 1.4 H Eos # Seg Neutrophils % 80.1 H Seg Neuts % (Manual) Lymphocytes % (Manual) Monocytes % (Manual) Eosinophils % (Manual) Nucleated RBC % Seg Neutrophils # 9.8 H Seg Neutrophils # Man Lymphocytes # (Manual) Monocytes # (Manual) Eosinophils # (Manual) PT INR POC ABG pH POC ABG pCO2 POC ABG pO2 Sodium 149 H Potassium 5.1 H Chloride 114.4 H Carbon Dioxide 18 L BUN 52 H Creatinine 3.3 H D Glucose 129 H POC Glucose Lactic Acid Calcium 7.9 L Magnesium AST ALT Alkaline Phosphatase Troponin T 0.098 H C-Reactive Protein Total Protein Albumin LDL Cholesterol Direct HDL Cholesterol Hepatitis C Antibody Crossmatch 11/13/17 11/13/17 11/14/17 04:51 09:34 04:21 WBC RBC Hgb Hct MCV MCH MCHC RDW Plt Count Lymph % (Auto) Cole % (Auto) Eos % (Auto) Lymph # Cole # Eos # Seg Neutrophils % Seg Neuts % (Manual) Lymphocytes % (Manual) Monocytes % (Manual) Eosinophils % (Manual) Nucleated RBC % Seg Neutrophils # Seg Neutrophils # Man Lymphocytes # (Manual) Monocytes # (Manual) Eosinophils # (Manual) PT INR POC ABG pH POC ABG pCO2 30.1 L 29.8 L POC ABG pO2 135 H Sodium Potassium Chloride Carbon Dioxide BUN Creatinine Glucose POC Glucose Lactic Acid 2.10 H* Calcium Magnesium AST ALT Alkaline Phosphatase Troponin T C-Reactive Protein Total Protein Albumin LDL Cholesterol Direct HDL Cholesterol Hepatitis C Antibody Crossmatch 11/15/17 11/15/17 11/16/17 04:52 15:50 05:17 WBC RBC Hgb Hct MCV MCH MCHC RDW Plt Count Lymph % (Auto) Cole % (Auto) Eos % (Auto) Lymph # Cole # Eos # Seg Neutrophils % Seg Neuts % (Manual) Lymphocytes % (Manual) Monocytes % (Manual) Eosinophils % (Manual) Nucleated RBC % Seg Neutrophils # Seg Neutrophils # Man Lymphocytes # (Manual) Monocytes # (Manual) Eosinophils # (Manual) PT INR POC ABG pH POC ABG pCO2 29.5 L 31.5 L POC ABG pO2 115 H 122 H Sodium 154 H Potassium Chloride 117.9 H Carbon Dioxide 19 L BUN 87 H Creatinine 4.1 H Glucose POC Glucose Lactic Acid Calcium 8.1 L Magnesium AST ALT Alkaline Phosphatase Troponin T C-Reactive Protein Total Protein Albumin LDL Cholesterol Direct HDL Cholesterol Hepatitis C Antibody Crossmatch 11/16/17 11/17/17 11/17/17 16:37 04:07 10:00 WBC 14.7 H RBC 3.23 L Hgb 8.3 L Hct 28.1 L MCV MCH 26 L MCHC 30 L RDW 18.8 H Plt Count Lymph % (Auto) Cole % (Auto) Eos % (Auto) Lymph # Cole # Eos # Seg Neutrophils % Seg Neuts % (Manual) 75 H Lymphocytes % (Manual) 8.0 L Monocytes % (Manual) Eosinophils % (Manual) Nucleated RBC % 1.0 H Seg Neutrophils # Seg Neutrophils # Man 11.0 H Lymphocytes # (Manual) Monocytes # (Manual) 0.9 H Eosinophils # (Manual) PT INR POC ABG pH POC ABG pCO2 POC ABG pO2 Sodium 153 H 155 H Potassium Chloride 117.3 H 119.4 H Carbon Dioxide 19 L 20 L BUN 90 H 89 H Creatinine 3.9 H 3.6 H Glucose 111 H 115 H POC Glucose Lactic Acid Calcium 8.1 L 8.0 L Magnesium AST ALT Alkaline Phosphatase Troponin T C-Reactive Protein Total Protein Albumin LDL Cholesterol Direct HDL Cholesterol Hepatitis C Antibody Crossmatch 11/18/17 11/18/17 11/18/17 04:34 04:34 04:34 WBC 15.5 H RBC 3.13 L Hgb 8.1 L Hct 26.3 L MCV MCH 26 L MCHC 31 L RDW 18.6 H Plt Count Lymph % (Auto) Cole % (Auto) Eos % (Auto) Lymph # Cole # Eos # Seg Neutrophils % Seg Neuts % (Manual) 81.0 H Lymphocytes % (Manual) 7.0 L Monocytes % (Manual) Eosinophils % (Manual) Nucleated RBC % 1.0 H Seg Neutrophils # Seg Neutrophils # Man 12.6 H Lymphocytes # (Manual) 1.1 L Monocytes # (Manual) Eosinophils # (Manual) PT 16.7 H INR 1.30 H POC ABG pH POC ABG pCO2 POC ABG pO2 Sodium 155 H Potassium 3.2 L Chloride 121.0 H Carbon Dioxide 20 L BUN 74 H Creatinine 2.9 H Glucose 126 H POC Glucose Lactic Acid Calcium 7.9 L Magnesium AST ALT Alkaline Phosphatase Troponin T C-Reactive Protein Total Protein Albumin LDL Cholesterol Direct HDL Cholesterol Hepatitis C Antibody Crossmatch 11/19/17 11/19/17 11/20/17 04:44 04:44 00:38 WBC 19.0 H 22.2 H RBC 3.20 L 3.17 L Hgb 8.4 L 7.9 L Hct 27.9 L 26.4 L MCV 83 L MCH 26 L 25 L MCHC 30 L 30 L RDW 19.1 H 18.9 H Plt Count Lymph % (Auto) Cole % (Auto) Eos % (Auto) Lymph # Cole # Eos # Seg Neutrophils % Seg Neuts % (Manual) 83.0 H Lymphocytes % (Manual) 3.0 L Monocytes % (Manual) 9.0 H Eosinophils % (Manual) Nucleated RBC % Seg Neutrophils # Seg Neutrophils # Man 18.4 H Lymphocytes # (Manual) 0.7 L Monocytes # (Manual) 2.0 H Eosinophils # (Manual) PT INR POC ABG pH POC ABG pCO2 POC ABG pO2 Sodium 152 H Potassium Chloride 117.1 H Carbon Dioxide 17 L BUN 66 H Creatinine 2.8 H Glucose 119 H POC Glucose Lactic Acid Calcium 7.8 L Magnesium 2.70 H AST ALT Alkaline Phosphatase Troponin T C-Reactive Protein Total Protein Albumin LDL Cholesterol Direct HDL Cholesterol Hepatitis C Antibody Crossmatch 11/20/17 11/20/17 11/20/17 03:29 04:48 13:38 WBC RBC Hgb Hct MCV MCH MCHC RDW Plt Count Lymph % (Auto) Cole % (Auto) Eos % (Auto) Lymph # Cole # Eos # Seg Neutrophils % Seg Neuts % (Manual) Lymphocytes % (Manual) Monocytes % (Manual) Eosinophils % (Manual) Nucleated RBC % Seg Neutrophils # Seg Neutrophils # Man Lymphocytes # (Manual) Monocytes # (Manual) Eosinophils # (Manual) PT INR POC ABG pH POC ABG pCO2 29.4 L POC ABG pO2 Sodium 148 H Potassium 3.4 L Chloride 113.7 H Carbon Dioxide 18 L BUN 59 H Creatinine 2.7 H Glucose 113 H POC Glucose 128 H Lactic Acid Calcium 7.8 L Magnesium AST ALT Alkaline Phosphatase Troponin T C-Reactive Protein Total Protein Albumin LDL Cholesterol Direct HDL Cholesterol Hepatitis C Antibody Crossmatch 11/20/17 11/20/17 11/21/17 17:38 23:40 00:13 WBC RBC Hgb 8.4 L Hct 28.0 L MCV MCH MCHC RDW Plt Count Lymph % (Auto) Cole % (Auto) Eos % (Auto) Lymph # Cole # Eos # Seg Neutrophils % Seg Neuts % (Manual) Lymphocytes % (Manual) Monocytes % (Manual) Eosinophils % (Manual) Nucleated RBC % Seg Neutrophils # Seg Neutrophils # Man Lymphocytes # (Manual) Monocytes # (Manual) Eosinophils # (Manual) PT INR POC ABG pH POC ABG pCO2 POC ABG pO2 Sodium Potassium Chloride Carbon Dioxide BUN Creatinine Glucose POC Glucose 115 H 145 H Lactic Acid Calcium Magnesium AST ALT Alkaline Phosphatase Troponin T C-Reactive Protein Total Protein Albumin LDL Cholesterol Direct HDL Cholesterol Hepatitis C Antibody Crossmatch 11/21/17 11/21/17 11/21/17 04:30 04:30 04:58 WBC 21.0 H RBC Hgb 9.6 L Hct 32.7 L MCV MCH 25 L MCHC 29 L RDW 19.7 H Plt Count 746 H Lymph % (Auto) Cole % (Auto) Eos % (Auto) Lymph # Cole # Eos # Seg Neutrophils % Seg Neuts % (Manual) Lymphocytes % (Manual) Monocytes % (Manual) Eosinophils % (Manual) Nucleated RBC % Seg Neutrophils # Seg Neutrophils # Man Lymphocytes # (Manual) Monocytes # (Manual) Eosinophils # (Manual) PT INR POC ABG pH POC ABG pCO2 POC ABG pO2 Sodium Potassium Chloride 109.4 H Carbon Dioxide 14 L BUN 59 H Creatinine 3.0 H Glucose 137 H POC Glucose 132 H Lactic Acid Calcium 7.6 L Magnesium AST ALT Alkaline Phosphatase Troponin T C-Reactive Protein Total Protein Albumin LDL Cholesterol Direct HDL Cholesterol Hepatitis C Antibody Crossmatch 11/21/17 11/21/17 11/21/17 06:30 13:43 14:17 WBC 38.2 H RBC Hgb 9.0 L Hct 32.3 L MCV MCH 25 L MCHC 28 L RDW 20.0 H Plt Count 766 H Lymph % (Auto) Cole % (Auto) Eos % (Auto) Lymph # Cole # Eos # Seg Neutrophils % Seg Neuts % (Manual) 85.0 H Lymphocytes % (Manual) 1.0 L Monocytes % (Manual) Eosinophils % (Manual) Nucleated RBC % 2.0 H Seg Neutrophils # Seg Neutrophils # Man 32.5 H Lymphocytes # (Manual) 0.4 L Monocytes # (Manual) 2.3 H Eosinophils # (Manual) PT INR POC ABG pH POC ABG pCO2 18.6 L POC ABG pO2 121 H Sodium 146 H Potassium Chloride 110.9 H Carbon Dioxide 11 L BUN 62 H Creatinine 4.0 H Glucose 64 L POC Glucose Lactic Acid Calcium 7.6 L Magnesium AST ALT Alkaline Phosphatase Troponin T C-Reactive Protein Total Protein Albumin LDL Cholesterol Direct HDL Cholesterol Hepatitis C Antibody Crossmatch 11/21/17 11/21/17 11/22/17 14:17 19:09 00:05 WBC RBC Hgb Hct MCV MCH MCHC RDW Plt Count Lymph % (Auto) Cole % (Auto) Eos % (Auto) Lymph # Cole # Eos # Seg Neutrophils % Seg Neuts % (Manual) Lymphocytes % (Manual) Monocytes % (Manual) Eosinophils % (Manual) Nucleated RBC % Seg Neutrophils # Seg Neutrophils # Man Lymphocytes # (Manual) Monocytes # (Manual) Eosinophils # (Manual) PT INR POC ABG pH POC ABG pCO2 20.0 L POC ABG pO2 Sodium Potassium Chloride Carbon Dioxide BUN Creatinine Glucose POC Glucose 127 H Lactic Acid 7.70 H* Calcium Magnesium AST ALT Alkaline Phosphatase Troponin T C-Reactive Protein Total Protein Albumin LDL Cholesterol Direct HDL Cholesterol Hepatitis C Antibody Crossmatch 11/22/17 11/22/17 11/22/17 03:53 06:00 07:25 WBC RBC Hgb Hct MCV MCH MCHC RDW Plt Count Lymph % (Auto) Cole % (Auto) Eos % (Auto) Lymph # Cole # Eos # Seg Neutrophils % Seg Neuts % (Manual) Lymphocytes % (Manual) Monocytes % (Manual) Eosinophils % (Manual) Nucleated RBC % Seg Neutrophils # Seg Neutrophils # Man Lymphocytes # (Manual) Monocytes # (Manual) Eosinophils # (Manual) PT INR POC ABG pH POC ABG pCO2 22.2 L POC ABG pO2 Sodium 147 H Potassium Chloride 111.9 H Carbon Dioxide 16 L BUN 72 H Creatinine 5.1 H Glucose 181 H POC Glucose 180 H Lactic Acid Calcium 7.1 L Magnesium AST ALT Alkaline Phosphatase Troponin T C-Reactive Protein Total Protein Albumin LDL Cholesterol Direct HDL Cholesterol Hepatitis C Antibody Crossmatch 11/22/17 11/22/17 11/22/17 07:25 07:25 12:05 WBC 31.4 H RBC 3.22 L Hgb 8.0 L Hct 26.7 L MCV 83 L MCH 25 L MCHC 30 L RDW 19.4 H Plt Count 602 H Lymph % (Auto) Cole % (Auto) Eos % (Auto) Lymph # Cole # Eos # Seg Neutrophils % Seg Neuts % (Manual) Lymphocytes % (Manual) Monocytes % (Manual) Eosinophils % (Manual) Nucleated RBC % Seg Neutrophils # Seg Neutrophils # Man Lymphocytes # (Manual) Monocytes # (Manual) Eosinophils # (Manual) PT INR POC ABG pH POC ABG pCO2 POC ABG pO2 Sodium Potassium Chloride Carbon Dioxide BUN Creatinine Glucose POC Glucose 182 H Lactic Acid 5.00 H* Calcium Magnesium AST ALT Alkaline Phosphatase Troponin T C-Reactive Protein Total Protein Albumin LDL Cholesterol Direct HDL Cholesterol Hepatitis C Antibody Crossmatch 11/22/17 11/23/17 11/23/17 19:45 01:28 04:56 WBC RBC Hgb Hct MCV MCH MCHC RDW Plt Count Lymph % (Auto) Cole % (Auto) Eos % (Auto) Lymph # Cole # Eos # Seg Neutrophils % Seg Neuts % (Manual) Lymphocytes % (Manual) Monocytes % (Manual) Eosinophils % (Manual) Nucleated RBC % Seg Neutrophils # Seg Neutrophils # Man Lymphocytes # (Manual) Monocytes # (Manual) Eosinophils # (Manual) PT INR POC ABG pH 7.505 H POC ABG pCO2 26.3 L POC ABG pO2 Sodium Potassium Chloride Carbon Dioxide BUN Creatinine Glucose POC Glucose 165 H Lactic Acid Calcium Magnesium AST ALT Alkaline Phosphatase Troponin T C-Reactive Protein Total Protein Albumin LDL Cholesterol Direct HDL Cholesterol Hepatitis C Antibody Reactive A Crossmatch 11/23/17 11/23/17 11/23/17 07:05 12:32 17:53 WBC RBC Hgb Hct MCV MCH MCHC RDW Plt Count Lymph % (Auto) Cole % (Auto) Eos % (Auto) Lymph # Cole # Eos # Seg Neutrophils % Seg Neuts % (Manual) Lymphocytes % (Manual) Monocytes % (Manual) Eosinophils % (Manual) Nucleated RBC % Seg Neutrophils # Seg Neutrophils # Man Lymphocytes # (Manual) Monocytes # (Manual) Eosinophils # (Manual) PT INR POC ABG pH POC ABG pCO2 POC ABG pO2 Sodium Potassium Chloride Carbon Dioxide 18 L BUN 61 H Creatinine 4.2 H Glucose 153 H POC Glucose 138 H 173 H Lactic Acid Calcium 7.5 L Magnesium AST ALT Alkaline Phosphatase Troponin T C-Reactive Protein Total Protein Albumin LDL Cholesterol Direct HDL Cholesterol Hepatitis C Antibody Crossmatch 11/23/17 11/24/17 11/24/17 23:41 05:42 05:42 WBC 21.5 H RBC 2.48 L Hgb 6.2 L Hct 20.3 L D MCV 82 L MCH 25 L MCHC 31 L RDW 18.9 H Plt Count Lymph % (Auto) Cole % (Auto) Eos % (Auto) Lymph # Cole # Eos # Seg Neutrophils % Seg Neuts % (Manual) 94.0 H Lymphocytes % (Manual) 3.0 L Monocytes % (Manual) Eosinophils % (Manual) Nucleated RBC % Seg Neutrophils # Seg Neutrophils # Man 20.2 H Lymphocytes # (Manual) 0.6 L Monocytes # (Manual) Eosinophils # (Manual) PT INR POC ABG pH POC ABG pCO2 POC ABG pO2 Sodium 149 H Potassium 2.8 L* D Chloride 113.9 H Carbon Dioxide 19 L BUN 31 H Creatinine 2.3 H Glucose 103 H POC Glucose 133 H Lactic Acid Calcium 5.3 L* D Magnesium 1.30 L AST ALT Alkaline Phosphatase Troponin T C-Reactive Protein Total Protein Albumin LDL Cholesterol Direct HDL Cholesterol Hepatitis C Antibody Crossmatch 11/24/17 11/24/17 11/24/17 05:42 08:27 08:27 WBC RBC Hgb Hct MCV MCH MCHC RDW Plt Count Lymph % (Auto) Cole % (Auto) Eos % (Auto) Lymph # Cole # Eos # Seg Neutrophils % Seg Neuts % (Manual) Lymphocytes % (Manual) Monocytes % (Manual) Eosinophils % (Manual) Nucleated RBC % Seg Neutrophils # Seg Neutrophils # Man Lymphocytes # (Manual) Monocytes # (Manual) Eosinophils # (Manual) PT INR POC ABG pH POC ABG pCO2 POC ABG pO2 Sodium Potassium Chloride Carbon Dioxide BUN Creatinine Glucose POC Glucose Lactic Acid 5.40 H* 5.20 H* Calcium Magnesium AST ALT Alkaline Phosphatase Troponin T C-Reactive Protein Total Protein Albumin LDL Cholesterol Direct HDL Cholesterol Hepatitis C Antibody Crossmatch See Detail 11/24/17 11/24/17 11/24/17 12:13 17:22 21:53 WBC 23.0 H RBC 3.32 L Hgb 8.8 L Hct 27.1 L D MCV 82 L MCH 26 L MCHC RDW 17.3 H Plt Count Lymph % (Auto) Cole % (Auto) Eos % (Auto) Lymph # Cole # Eos # Seg Neutrophils % Seg Neuts % (Manual) Lymphocytes % (Manual) Monocytes % (Manual) Eosinophils % (Manual) Nucleated RBC % Seg Neutrophils # Seg Neutrophils # Man Lymphocytes # (Manual) Monocytes # (Manual) Eosinophils # (Manual) PT INR POC ABG pH POC ABG pCO2 POC ABG pO2 Sodium Potassium Chloride Carbon Dioxide BUN Creatinine Glucose POC Glucose 138 H 180 H Lactic Acid Calcium Magnesium AST ALT Alkaline Phosphatase Troponin T C-Reactive Protein Total Protein Albumin LDL Cholesterol Direct HDL Cholesterol Hepatitis C Antibody Crossmatch 11/24/17 11/24/17 11/25/17 21:53 23:28 04:19 WBC RBC Hgb Hct MCV MCH MCHC RDW Plt Count Lymph % (Auto) Cole % (Auto) Eos % (Auto) Lymph # Cole # Eos # Seg Neutrophils % Seg Neuts % (Manual) Lymphocytes % (Manual) Monocytes % (Manual) Eosinophils % (Manual) Nucleated RBC % Seg Neutrophils # Seg Neutrophils # Man Lymphocytes # (Manual) Monocytes # (Manual) Eosinophils # (Manual) PT INR POC ABG pH POC ABG pCO2 POC ABG pO2 Sodium Potassium Chloride 96.3 L Carbon Dioxide BUN 28 H 31 H Creatinine 2.3 H 2.6 H Glucose 125 H 101 H POC Glucose 111 H Lactic Acid Calcium 7.5 L D 7.4 L Magnesium AST 170 H ALT 179 H Alkaline Phosphatase 175 H Troponin T C-Reactive Protein Total Protein 5.5 L Albumin 1.8 L LDL Cholesterol Direct HDL Cholesterol Hepatitis C Antibody Crossmatch 11/25/17 11/25/17 11/26/17 04:19 04:19 06:29 WBC 22.5 H RBC 3.48 L Hgb 9.1 L Hct 28.3 L MCV 81 L MCH 26 L MCHC RDW 17.4 H Plt Count Lymph % (Auto) Cole % (Auto) Eos % (Auto) Lymph # Cole # Eos # Seg Neutrophils % Seg Neuts % (Manual) Lymphocytes % (Manual) Monocytes % (Manual) Eosinophils % (Manual) Nucleated RBC % Seg Neutrophils # Seg Neutrophils # Man Lymphocytes # (Manual) Monocytes # (Manual) Eosinophils # (Manual) PT 23.6 H INR 1.96 H POC ABG pH POC ABG pCO2 POC ABG pO2 Sodium Potassium Chloride Carbon Dioxide BUN 31 H Creatinine 2.6 H Glucose 101 H POC Glucose Lactic Acid Calcium 7.5 L Magnesium AST ALT Alkaline Phosphatase Troponin T C-Reactive Protein Total Protein Albumin LDL Cholesterol Direct HDL Cholesterol Hepatitis C Antibody Crossmatch 11/26/17 11/27/17 11/27/17 06:34 04:06 04:06 WBC 11.3 H RBC 3.13 L Hgb 8.4 L Hct 25.8 L MCV 82 L MCH 27 L MCHC RDW 17.7 H Plt Count Lymph % (Auto) 7.4 L Cole % (Auto) Eos % (Auto) Lymph # 0.8 L Cole # Eos # Seg Neutrophils % 83.7 H Seg Neuts % (Manual) Lymphocytes % (Manual) Monocytes % (Manual) Eosinophils % (Manual) Nucleated RBC % Seg Neutrophils # 9.5 H Seg Neutrophils # Man Lymphocytes # (Manual) Monocytes # (Manual) Eosinophils # (Manual) PT INR POC ABG pH POC ABG pCO2 POC ABG pO2 Sodium Potassium Chloride 97.9 L Carbon Dioxide BUN 43 H 29 H Creatinine 3.5 H 2.9 H Glucose POC Glucose Lactic Acid Calcium 7.5 L 8.1 L Magnesium AST ALT Alkaline Phosphatase Troponin T C-Reactive Protein Total Protein Albumin LDL Cholesterol Direct HDL Cholesterol Hepatitis C Antibody Crossmatch 11/27/17 11/28/17 11/28/17 18:11 00:16 03:50 WBC RBC Hgb Hct MCV MCH MCHC RDW Plt Count Lymph % (Auto) Cole % (Auto) Eos % (Auto) Lymph # Cole # Eos # Seg Neutrophils % Seg Neuts % (Manual) Lymphocytes % (Manual) Monocytes % (Manual) Eosinophils % (Manual) Nucleated RBC % Seg Neutrophils # Seg Neutrophils # Man Lymphocytes # (Manual) Monocytes # (Manual) Eosinophils # (Manual) PT INR POC ABG pH POC ABG pCO2 POC ABG pO2 Sodium Potassium Chloride Carbon Dioxide BUN 39 H Creatinine 4.1 H Glucose 108 H POC Glucose 110 H 124 H Lactic Acid Calcium 7.9 L Magnesium AST ALT Alkaline Phosphatase Troponin T C-Reactive Protein Total Protein Albumin LDL Cholesterol Direct HDL Cholesterol Hepatitis C Antibody Crossmatch 11/28/17 11/28/17 11/28/17 05:03 11:36 17:42 WBC RBC Hgb Hct MCV MCH MCHC RDW Plt Count Lymph % (Auto) Cole % (Auto) Eos % (Auto) Lymph # Cole # Eos # Seg Neutrophils % Seg Neuts % (Manual) Lymphocytes % (Manual) Monocytes % (Manual) Eosinophils % (Manual) Nucleated RBC % Seg Neutrophils # Seg Neutrophils # Man Lymphocytes # (Manual) Monocytes # (Manual) Eosinophils # (Manual) PT INR POC ABG pH POC ABG pCO2 POC ABG pO2 Sodium Potassium Chloride Carbon Dioxide BUN Creatinine Glucose POC Glucose 134 H 114 H 119 H Lactic Acid Calcium Magnesium AST ALT Alkaline Phosphatase Troponin T C-Reactive Protein Total Protein Albumin LDL Cholesterol Direct HDL Cholesterol Hepatitis C Antibody Crossmatch 11/29/17 11/29/17 11/29/17 00:22 05:25 05:25 WBC 12.3 H RBC 3.34 L Hgb 8.6 L Hct 27.3 L MCV 82 L MCH 26 L MCHC RDW 18.5 H Plt Count Lymph % (Auto) 3.7 L Cole % (Auto) 7.7 H Eos % (Auto) Lymph # 0.5 L Cole # 1.0 H Eos # Seg Neutrophils % 86.5 H Seg Neuts % (Manual) Lymphocytes % (Manual) Monocytes % (Manual) Eosinophils % (Manual) Nucleated RBC % Seg Neutrophils # 10.7 H Seg Neutrophils # Man Lymphocytes # (Manual) Monocytes # (Manual) Eosinophils # (Manual) PT INR POC ABG pH POC ABG pCO2 POC ABG pO2 Sodium Potassium Chloride Carbon Dioxide BUN 29 H Creatinine 3.5 H Glucose 109 H POC Glucose 137 H Lactic Acid Calcium 7.8 L Magnesium AST ALT Alkaline Phosphatase Troponin T C-Reactive Protein Total Protein Albumin LDL Cholesterol Direct HDL Cholesterol Hepatitis C Antibody Crossmatch 11/29/17 11/30/17 11/30/17 05:26 00:26 04:17 WBC RBC Hgb Hct MCV MCH MCHC RDW Plt Count Lymph % (Auto) Cole % (Auto) Eos % (Auto) Lymph # Cole # Eos # Seg Neutrophils % Seg Neuts % (Manual) Lymphocytes % (Manual) Monocytes % (Manual) Eosinophils % (Manual) Nucleated RBC % Seg Neutrophils # Seg Neutrophils # Man Lymphocytes # (Manual) Monocytes # (Manual) Eosinophils # (Manual) PT INR POC ABG pH POC ABG pCO2 POC ABG pO2 Sodium Potassium Chloride Carbon Dioxide BUN 38 H Creatinine 4.3 H Glucose 109 H POC Glucose 129 H 152 H Lactic Acid Calcium 7.8 L Magnesium AST ALT Alkaline Phosphatase Troponin T C-Reactive Protein Total Protein Albumin LDL Cholesterol Direct HDL Cholesterol Hepatitis C Antibody Crossmatch 11/30/17 11/30/17 11/30/17 12:17 16:23 23:35 WBC RBC Hgb Hct MCV MCH MCHC RDW Plt Count Lymph % (Auto) Cole % (Auto) Eos % (Auto) Lymph # Cole # Eos # Seg Neutrophils % Seg Neuts % (Manual) Lymphocytes % (Manual) Monocytes % (Manual) Eosinophils % (Manual) Nucleated RBC % Seg Neutrophils # Seg Neutrophils # Man Lymphocytes # (Manual) Monocytes # (Manual) Eosinophils # (Manual) PT INR POC ABG pH POC ABG pCO2 POC ABG pO2 Sodium Potassium Chloride Carbon Dioxide BUN Creatinine Glucose POC Glucose 170 H 114 H 122 H Lactic Acid Calcium Magnesium AST ALT Alkaline Phosphatase Troponin T C-Reactive Protein Total Protein Albumin LDL Cholesterol Direct HDL Cholesterol Hepatitis C Antibody Crossmatch 12/01/17 12/01/17 12/01/17 04:09 04:09 12:17 WBC 14.1 H RBC 3.32 L Hgb 8.6 L Hct 27.0 L MCV 81 L MCH 26 L MCHC RDW 18.7 H Plt Count Lymph % (Auto) 5.5 L Cole % (Auto) 9.7 H Eos % (Auto) Lymph # 0.8 L Cole # 1.4 H Eos # Seg Neutrophils % 82.9 H Seg Neuts % (Manual) Lymphocytes % (Manual) Monocytes % (Manual) Eosinophils % (Manual) Nucleated RBC % Seg Neutrophils # 11.7 H Seg Neutrophils # Man Lymphocytes # (Manual) Monocytes # (Manual) Eosinophils # (Manual) PT INR POC ABG pH POC ABG pCO2 POC ABG pO2 Sodium Potassium 3.4 L Chloride Carbon Dioxide BUN 21 H Creatinine 3.0 H Glucose 108 H POC Glucose 126 H Lactic Acid Calcium 8.0 L Magnesium AST ALT Alkaline Phosphatase Troponin T C-Reactive Protein Total Protein Albumin LDL Cholesterol Direct HDL Cholesterol Hepatitis C Antibody Crossmatch 12/02/17 12/03/17 12/03/17 23:46 02:52 05:54 WBC 17.2 H RBC 3.21 L Hgb 8.5 L Hct 25.8 L MCV 80 L MCH 26 L MCHC RDW 18.4 H Plt Count 128 L Lymph % (Auto) Cole % (Auto) Eos % (Auto) Lymph # Cole # Eos # Seg Neutrophils % Seg Neuts % (Manual) Lymphocytes % (Manual) Monocytes % (Manual) Eosinophils % (Manual) Nucleated RBC % Seg Neutrophils # Seg Neutrophils # Man Lymphocytes # (Manual) Monocytes # (Manual) Eosinophils # (Manual) PT INR POC ABG pH POC ABG pCO2 POC ABG pO2 Sodium Potassium Chloride Carbon Dioxide BUN Creatinine Glucose POC Glucose 125 H 107 H Lactic Acid Calcium Magnesium AST ALT Alkaline Phosphatase Troponin T C-Reactive Protein Total Protein Albumin LDL Cholesterol Direct HDL Cholesterol Hepatitis C Antibody Crossmatch 12/03/17 12/03/17 12/04/17 12:05 Unknown 12:26 WBC RBC Hgb Hct MCV MCH MCHC RDW Plt Count Lymph % (Auto) Cole % (Auto) Eos % (Auto) Lymph # Cole # Eos # Seg Neutrophils % Seg Neuts % (Manual) Lymphocytes % (Manual) Monocytes % (Manual) Eosinophils % (Manual) Nucleated RBC % Seg Neutrophils # Seg Neutrophils # Man Lymphocytes # (Manual) Monocytes # (Manual) Eosinophils # (Manual) PT INR POC ABG pH POC ABG pCO2 POC ABG pO2 Sodium Potassium Chloride Carbon Dioxide BUN 21 H Creatinine 2.8 H Glucose 113 H POC Glucose 106 H 119 H Lactic Acid Calcium Magnesium AST ALT Alkaline Phosphatase Troponin T C-Reactive Protein Total Protein Albumin LDL Cholesterol Direct HDL Cholesterol Hepatitis C Antibody Crossmatch 12/04/17 12/05/17 12/05/17 17:57 00:52 04:05 WBC RBC 2.96 L Hgb 7.7 L Hct 24.2 L MCV 82 L MCH 26 L MCHC RDW 18.8 H Plt Count 105 L Lymph % (Auto) 10.6 L Cole % (Auto) 12.1 H Eos % (Auto) 5.2 H Lymph # 1.1 L Cole # 1.3 H Eos # 0.5 H Seg Neutrophils % 71.3 H Seg Neuts % (Manual) Lymphocytes % (Manual) Monocytes % (Manual) Eosinophils % (Manual) Nucleated RBC % Seg Neutrophils # Seg Neutrophils # Man Lymphocytes # (Manual) Monocytes # (Manual) Eosinophils # (Manual) PT INR POC ABG pH POC ABG pCO2 POC ABG pO2 Sodium Potassium Chloride Carbon Dioxide BUN Creatinine Glucose POC Glucose 140 H 117 H Lactic Acid Calcium Magnesium AST ALT Alkaline Phosphatase Troponin T C-Reactive Protein Total Protein Albumin LDL Cholesterol Direct HDL Cholesterol Hepatitis C Antibody Crossmatch 12/05/17 12/05/17 12/06/17 04:05 22:50 08:18 WBC RBC 2.80 L Hgb 7.4 L Hct 23.0 L MCV 82 L MCH 27 L MCHC RDW 19.5 H Plt Count 125 L Lymph % (Auto) Cole % (Auto) Eos % (Auto) Lymph # Cole # Eos # Seg Neutrophils % Seg Neuts % (Manual) Lymphocytes % (Manual) Monocytes % (Manual) Eosinophils % (Manual) Nucleated RBC % Seg Neutrophils # Seg Neutrophils # Man Lymphocytes # (Manual) Monocytes # (Manual) Eosinophils # (Manual) PT INR POC ABG pH POC ABG pCO2 POC ABG pO2 Sodium Potassium Chloride 107.4 H Carbon Dioxide BUN Creatinine 2.5 H Glucose POC Glucose 112 H Lactic Acid Calcium 8.3 L Magnesium AST ALT Alkaline Phosphatase Troponin T C-Reactive Protein Total Protein Albumin LDL Cholesterol Direct HDL Cholesterol Hepatitis C Antibody Crossmatch 12/06/17 12/06/17 12/06/17 08:18 12:01 23:58 WBC RBC Hgb Hct MCV MCH MCHC RDW Plt Count Lymph % (Auto) Cole % (Auto) Eos % (Auto) Lymph # Cole # Eos # Seg Neutrophils % Seg Neuts % (Manual) Lymphocytes % (Manual) Monocytes % (Manual) Eosinophils % (Manual) Nucleated RBC % Seg Neutrophils # Seg Neutrophils # Man Lymphocytes # (Manual) Monocytes # (Manual) Eosinophils # (Manual) PT INR POC ABG pH POC ABG pCO2 POC ABG pO2 Sodium Potassium Chloride 108.4 H Carbon Dioxide BUN 28 H Creatinine 3.7 H Glucose 103 H POC Glucose 106 H 108 H Lactic Acid Calcium 8.0 L Magnesium AST ALT Alkaline Phosphatase Troponin T C-Reactive Protein Total Protein Albumin LDL Cholesterol Direct HDL Cholesterol Hepatitis C Antibody Crossmatch 12/07/17 12/07/17 12/07/17 05:47 05:47 18:03 WBC RBC 2.79 L Hgb 7.3 L Hct 22.8 L MCV 82 L MCH 26 L MCHC RDW 19.1 H Plt Count 101 L Lymph % (Auto) Cole % (Auto) Eos % (Auto) Lymph # Cole # Eos # Seg Neutrophils % Seg Neuts % (Manual) 72.0 H Lymphocytes % (Manual) 13.0 L Monocytes % (Manual) Eosinophils % (Manual) 9.0 H Nucleated RBC % Seg Neutrophils # Seg Neutrophils # Man Lymphocytes # (Manual) 1.1 L Monocytes # (Manual) Eosinophils # (Manual) 0.8 H PT INR POC ABG pH POC ABG pCO2 POC ABG pO2 Sodium 146 H Potassium Chloride 109.8 H Carbon Dioxide BUN 36 H Creatinine 4.0 H Glucose POC Glucose 143 H Lactic Acid Calcium 8.0 L Magnesium AST ALT Alkaline Phosphatase Troponin T C-Reactive Protein Total Protein Albumin LDL Cholesterol Direct HDL Cholesterol Hepatitis C Antibody Crossmatch 12/07/17 12/08/17 12/08/17 23:33 05:10 05:10 WBC RBC 2.91 L Hgb 7.5 L Hct 24.4 L MCV MCH 26 L MCHC 31 L RDW 19.7 H Plt Count 109 L Lymph % (Auto) Cole % (Auto) Eos % (Auto) Lymph # Cole # Eos # Seg Neutrophils % Seg Neuts % (Manual) Lymphocytes % (Manual) 11.0 L Monocytes % (Manual) Eosinophils % (Manual) 12.0 H Nucleated RBC % Seg Neutrophils # Seg Neutrophils # Man Lymphocytes # (Manual) 0.7 L Monocytes # (Manual) Eosinophils # (Manual) 0.7 H PT INR POC ABG pH POC ABG pCO2 POC ABG pO2 Sodium 147 H Potassium Chloride 110.4 H Carbon Dioxide BUN Creatinine 2.8 H Glucose POC Glucose 107 H Lactic Acid Calcium 7.8 L Magnesium AST ALT Alkaline Phosphatase Troponin T C-Reactive Protein Total Protein Albumin LDL Cholesterol Direct HDL Cholesterol Hepatitis C Antibody Crossmatch 12/09/17 12/09/17 12/09/17 04:18 04:18 12:16 WBC RBC Hgb 7.2 L Hct 23.2 L MCV MCH MCHC RDW Plt Count Lymph % (Auto) Cole % (Auto) Eos % (Auto) Lymph # Cole # Eos # Seg Neutrophils % Seg Neuts % (Manual) Lymphocytes % (Manual) Monocytes % (Manual) Eosinophils % (Manual) Nucleated RBC % Seg Neutrophils # Seg Neutrophils # Man Lymphocytes # (Manual) Monocytes # (Manual) Eosinophils # (Manual) PT INR POC ABG pH POC ABG pCO2 POC ABG pO2 Sodium 150 H Potassium Chloride 114.5 H Carbon Dioxide BUN 25 H Creatinine 3.3 H Glucose POC Glucose 142 H Lactic Acid Calcium 7.7 L Magnesium AST ALT Alkaline Phosphatase Troponin T C-Reactive Protein Total Protein Albumin LDL Cholesterol Direct HDL Cholesterol Hepatitis C Antibody Crossmatch 12/10/17 12/10/17 12/11/17 05:14 05:14 12:05 WBC RBC 2.81 L Hgb 7.4 L Hct 23.9 L MCV MCH 26 L MCHC 31 L RDW 19.1 H Plt Count 128 L Lymph % (Auto) Cole % (Auto) Eos % (Auto) Lymph # Cole # Eos # Seg Neutrophils % Seg Neuts % (Manual) 78.0 H Lymphocytes % (Manual) 8.0 L Monocytes % (Manual) Eosinophils % (Manual) 5.0 H Nucleated RBC % Seg Neutrophils # Seg Neutrophils # Man Lymphocytes # (Manual) 0.6 L Monocytes # (Manual) Eosinophils # (Manual) PT INR POC ABG pH POC ABG pCO2 POC ABG pO2 Sodium Potassium Chloride Carbon Dioxide BUN Creatinine 2.2 H Glucose POC Glucose 127 H Lactic Acid Calcium 7.8 L Magnesium AST ALT Alkaline Phosphatase Troponin T C-Reactive Protein Total Protein Albumin LDL Cholesterol Direct HDL Cholesterol Hepatitis C Antibody Crossmatch 12/11/17 12/11/17 12/11/17 15:26 18:36 23:40 WBC RBC Hgb Hct MCV MCH MCHC RDW Plt Count Lymph % (Auto) Cole % (Auto) Eos % (Auto) Lymph # Cole # Eos # Seg Neutrophils % Seg Neuts % (Manual) Lymphocytes % (Manual) Monocytes % (Manual) Eosinophils % (Manual) Nucleated RBC % Seg Neutrophils # Seg Neutrophils # Man Lymphocytes # (Manual) Monocytes # (Manual) Eosinophils # (Manual) PT INR POC ABG pH POC ABG pCO2 POC ABG pO2 Sodium Potassium 3.3 L Chloride Carbon Dioxide BUN Creatinine 1.6 H Glucose POC Glucose 106 H 110 H Lactic Acid Calcium 7.6 L Magnesium AST ALT Alkaline Phosphatase Troponin T C-Reactive Protein Total Protein Albumin LDL Cholesterol Direct HDL Cholesterol Hepatitis C Antibody Crossmatch 12/12/17 12/12/17 12/12/17 05:10 05:41 05:41 WBC RBC 3.17 L Hgb 8.1 L Hct 25.7 L MCV 81 L MCH 25 L MCHC 31 L RDW 19.2 H Plt Count Lymph % (Auto) Cole % (Auto) Eos % (Auto) Lymph # Cole # Eos # Seg Neutrophils % Seg Neuts % (Manual) 74.0 H Lymphocytes % (Manual) 6.0 L Monocytes % (Manual) Eosinophils % (Manual) 9.0 H Nucleated RBC % Seg Neutrophils # Seg Neutrophils # Man Lymphocytes # (Manual) 0.6 L Monocytes # (Manual) Eosinophils # (Manual) 0.9 H PT INR POC ABG pH POC ABG pCO2 POC ABG pO2 Sodium Potassium 3.5 L Chloride Carbon Dioxide BUN Creatinine 2.3 H Glucose 113 H POC Glucose 112 H Lactic Acid Calcium 7.5 L Magnesium AST ALT Alkaline Phosphatase Troponin T C-Reactive Protein Total Protein Albumin LDL Cholesterol Direct HDL Cholesterol Hepatitis C Antibody Crossmatch 12/13/17 12/13/17 12/13/17 06:14 12:00 17:37 WBC RBC Hgb Hct MCV MCH MCHC RDW Plt Count Lymph % (Auto) Cole % (Auto) Eos % (Auto) Lymph # Cole # Eos # Seg Neutrophils % Seg Neuts % (Manual) Lymphocytes % (Manual) Monocytes % (Manual) Eosinophils % (Manual) Nucleated RBC % Seg Neutrophils # Seg Neutrophils # Man Lymphocytes # (Manual) Monocytes # (Manual) Eosinophils # (Manual) PT INR POC ABG pH POC ABG pCO2 POC ABG pO2 Sodium Potassium Chloride Carbon Dioxide BUN Creatinine Glucose POC Glucose 130 H 133 H 136 H Lactic Acid Calcium Magnesium AST ALT Alkaline Phosphatase Troponin T C-Reactive Protein Total Protein Albumin LDL Cholesterol Direct HDL Cholesterol Hepatitis C Antibody Crossmatch 12/13/17 12/14/17 12/14/17 23:39 05:11 05:11 WBC RBC Hgb Hct MCV MCH MCHC RDW Plt Count Lymph % (Auto) Cole % (Auto) Eos % (Auto) Lymph # Cole # Eos # Seg Neutrophils % Seg Neuts % (Manual) Lymphocytes % (Manual) Monocytes % (Manual) Eosinophils % (Manual) Nucleated RBC % Seg Neutrophils # Seg Neutrophils # Man Lymphocytes # (Manual) Monocytes # (Manual) Eosinophils # (Manual) PT 15.4 H INR 1.17 H POC ABG pH POC ABG pCO2 POC ABG pO2 Sodium Potassium Chloride Carbon Dioxide 21 L BUN 26 H Creatinine 2.9 H Glucose POC Glucose 108 H Lactic Acid Calcium 7.2 L Magnesium AST ALT Alkaline Phosphatase Troponin T C-Reactive Protein Total Protein Albumin LDL Cholesterol Direct HDL Cholesterol Hepatitis C Antibody Crossmatch 12/14/17 12/14/17 12/14/17 12:00 16:01 18:24 WBC 12.9 H RBC 3.25 L Hgb 8.2 L Hct 26.2 L MCV 81 L MCH 25 L MCHC 31 L RDW 19.2 H Plt Count Lymph % (Auto) Cole % (Auto) Eos % (Auto) Lymph # Cole # Eos # Seg Neutrophils % Seg Neuts % (Manual) Lymphocytes % (Manual) Monocytes % (Manual) Eosinophils % (Manual) Nucleated RBC % Seg Neutrophils # Seg Neutrophils # Man Lymphocytes # (Manual) Monocytes # (Manual) Eosinophils # (Manual) PT INR POC ABG pH POC ABG pCO2 POC ABG pO2 Sodium Potassium Chloride Carbon Dioxide BUN Creatinine Glucose POC Glucose 138 H 120 H Lactic Acid Calcium Magnesium AST ALT Alkaline Phosphatase Troponin T C-Reactive Protein Total Protein Albumin LDL Cholesterol Direct HDL Cholesterol Hepatitis C Antibody Crossmatch 12/14/17 12/14/17 12/15/17 23:29 Unknown 05:57 WBC 12.5 H RBC 2.48 L Hgb 6.0 L Hct 24.4 L MCV 79 L MCH 24 L MCHC 30 L RDW 18.5 H Plt Count 131 L Lymph % (Auto) 7.0 L Cole % (Auto) 8.9 H Eos % (Auto) 8.3 H Lymph # 0.9 L Cole # 1.1 H Eos # 1.0 H Seg Neutrophils % 75.2 H Seg Neuts % (Manual) Lymphocytes % (Manual) Monocytes % (Manual) Eosinophils % (Manual) Nucleated RBC % Seg Neutrophils # 9.4 H Seg Neutrophils # Man Lymphocytes # (Manual) Monocytes # (Manual) Eosinophils # (Manual) PT INR POC ABG pH POC ABG pCO2 POC ABG pO2 Sodium Potassium Chloride Carbon Dioxide BUN Creatinine Glucose POC Glucose 110 H 113 H Lactic Acid Calcium Magnesium AST ALT Alkaline Phosphatase Troponin T C-Reactive Protein Total Protein Albumin LDL Cholesterol Direct HDL Cholesterol Hepatitis C Antibody Crossmatch 12/15/17 12/15/17 12/15/17 11:50 13:37 17:58 WBC RBC Hgb 7.3 L Hct 23.3 L MCV MCH MCHC RDW Plt Count Lymph % (Auto) Cole % (Auto) Eos % (Auto) Lymph # Cole # Eos # Seg Neutrophils % Seg Neuts % (Manual) Lymphocytes % (Manual) Monocytes % (Manual) Eosinophils % (Manual) Nucleated RBC % Seg Neutrophils # Seg Neutrophils # Man Lymphocytes # (Manual) Monocytes # (Manual) Eosinophils # (Manual) PT INR POC ABG pH POC ABG pCO2 POC ABG pO2 Sodium Potassium Chloride Carbon Dioxide BUN Creatinine Glucose POC Glucose 106 H 110 H Lactic Acid Calcium Magnesium AST ALT Alkaline Phosphatase Troponin T C-Reactive Protein Total Protein Albumin LDL Cholesterol Direct HDL Cholesterol Hepatitis C Antibody Crossmatch
[2017-12-16 05:28] LABS: Basophils # (Auto) 0.1 K/mm3 (0.0-0.1); Basophils % (Auto) 0.6 % (0.0-1.8); Eosinophils # (Auto) 1.1 K/mm3 (0.0-0.4); Eosinophils % (Auto) 8.2 % (0.0-4.3); Hematocrit 22.2 % (35.5-45.6); Hemoglobin 6.9 gm/dl (11.8-15.2); Lymphocytes % (Auto) 7.3 % (13.4-35.0); Mean Corpuscular HGB Conc 31 % (32-34); Mean Corpuscular Volume 80 fl (84-94); Monocytes # (Auto) 1.4 K/mm3 (0.0-0.8); Platelet Count 150 K/mm3 (140-440); Red Blood Count 2.79 M/mm3 (3.65-5.03); Red Cell Distribution Width 18.8 % (13.2-15.2)
[2017-12-16 05:40] LABS: Mean Corpuscular Hemoglobin 25 pg (28-32)
[2017-12-16 05:53] LABS: Calcium 7.7 mg/dL (8.4-10.2)
[2017-12-16] MEDS ORDERED: POTASSIUM CHLORIDE FEEDTUBE ONE (06:36)
[2017-12-16] MEDS: KCL 10MEQ/100ML 10 MEQ/100 ML BAG IV SCH ×2 (07:03→08:42)
[2017-12-16] MEDS ORDERED: NACL 0.9% 500 ML 500 ML IV NR (09:32)
--- NOTE | 2017-12-16 09:32 | Progress Note ---
Assessment and Plan Assessment and plan: Acute Hypokalemia replete and recheck Peritonitis and possible intra-abdominal abscess - likely from dislodged peg tube - removed PEG tube on 11/22 - peritoneal Fluid positive for Enterobacter, Heather (non albicans) - Antibiotics managed by ID - s/p multiple intraabdominal drainages placed by IR and GS. Also had abdominal washout by GS - last drainage was placed on 12/06 by IR Acute on chronic respiratory failure with hypoxia - due to aspiration and PNA - Status post tracheostomy, currently on T-piece - Pulmonology following Severe sepsis with shock likely secondary to aspiration pneumonia -Off IV pressors -Blood and sputum cultures negative Aspiration pneumonia with mucus plugging -treated with zosyn Acute kidney injury secondary to ATN -on Intermittent HD started on 11/23/17 via vascath -Creatinine level improved -Nephrology following Acute encephalopathy, likely multifactorial -Will continue to monitor clinically -Prognosis is poor Oropharyngeal dysphagia -Status post PEG tube placement on 11/06, now removed -On tube feeding with dobhoff -will need PEg tube before discharge History of recent CVA -Not on aspirin due to recent bleed RT ICA stenosis -s/p recent endarterectomy Disposition: Patient overall prognosis remains poor. Continue management Further pt mgt per hospital course Disposition Plan: 30 mins History Interval history: Hemoglobin is less than 7. Blood sent to [facility] due to antibodies No family Hospitalist Physical - Constitutional Vitals: Temp Pulse Resp BP Pulse Ox 98.1 F 92 H 20 135/75 100 12/16/17 08:00 12/16/17 08:00 12/16/17 08:00 12/16/17 08:00 12/16/17 09:29 General appearance: Present: no acute distress, other (ill appearing) - EENT Eyes: Present: PERRL, EOM intact ENT: hearing intact - Neck Neck: Present: supple, other (trach) - Respiratory Respiratory: bilateral: diminished, rhonchi, negative: rales, wheezing - Cardiovascular Rhythm: regular Heart Sounds: Present: S1 & S2 - Extremities Extremities: pulses intact, normal temperature Extremity abnormal: edema - Abdominal General gastrointestinal: soft, non-distended, normal bowel sounds - Integumentary Integumentary: Present: clear, warm, dry - Psychiatric Psychiatric: other (unable to assess) - Neurologic Neurologic: other (left sided weakness) - Allied Health Allied health notes reviewed: nursing, social work, case management Results - Labs CBC & Chem 7: 12/16/17 05:14 12/16/17 04:55 Labs: Laboratory Last Values WBC 13.2 K/mm3 (4.5-11.0) H 12/16/17 05:14 RBC 2.79 M/mm3 (3.65-5.03) L 12/16/17 05:14 Hgb 6.9 gm/dl (11.8-15.2) L 12/16/17 05:14 Hct 22.2 % (35.5-45.6) L 12/16/17 05:14 MCV 80 fl (84-94) L 12/16/17 05:14 MCH 25 pg (28-32) L 12/16/17 05:14 MCHC 31 % (32-34) L 12/16/17 05:14 RDW 18.8 % (13.2-15.2) H 12/16/17 05:14 Plt Count 150 K/mm3 (140-440) 12/16/17 05:14 Lymph % (Auto) 7.3 % (13.4-35.0) L 12/16/17 05:14 [place] % (Auto) 11.0 % (0.0-7.3) H 12/16/17 05:14 Eos % (Auto) 8.2 % (0.0-4.3) H 12/16/17 05:14 Baso % (Auto) 0.6 % (0.0-1.8) 12/16/17 05:14 Lymph # 1.0 K/mm3 (1.2-5.4) L 12/16/17 05:14 [place] # 1.4 K/mm3 (0.0-0.8) H 12/16/17 05:14 Eos # 1.1 K/mm3 (0.0-0.4) H 12/16/17 05:14 Baso # 0.1 K/mm3 (0.0-0.1) 12/16/17 05:14 Add Manual Diff Complete 12/12/17 05:41 Total Counted 100 12/12/17 05:41 Seg Neutrophils % 72.9 % (40.0-70.0) H 12/16/17 05:14 Seg Neuts % (Manual) 74.0 % (40.0-70.0) H 12/12/17 05:41 Band Neutrophils % 6.0 % 12/12/17 05:41 Lymphocytes % (Manual) 6.0 % (13.4-35.0) L 12/12/17 05:41 Reactive Lymphs % (Man) 0 % 12/12/17 05:41 Monocytes % (Manual) 2.0 % (0.0-7.3) 12/12/17 05:41 Eosinophils % (Manual) 9.0 % (0.0-4.3) H 12/12/17 05:41 Basophils % (Manual) 0 % (0.0-1.8) 12/12/17 05:41 Metamyelocytes % 3.0 % 12/12/17 05:41 Myelocytes % 0 % 12/12/17 05:41 Promyelocytes % 0 % 12/12/17 05:41 Blast Cells % 0 % 12/12/17 05:41 Nucleated RBC % Not Reportable 12/12/17 05:41 Seg Neutrophils # 9.6 K/mm3 (1.8-7.7) H 12/16/17 05:14 Seg Neutrophils # Man 7.7 K/mm3 (1.8-7.7) 12/12/17 05:41 Band Neutrophils # 0.6 K/mm3 12/12/17 05:41 Lymphocytes # (Manual) 0.6 K/mm3 (1.2-5.4) L 12/12/17 05:41 Abs React Lymphs (Man) 0.0 K/mm3 12/12/17 05:41 Monocytes # (Manual) 0.2 K/mm3 (0.0-0.8) 12/12/17 05:41 Eosinophils # (Manual) 0.9 K/mm3 (0.0-0.4) H 12/12/17 05:41 Basophils # (Manual) 0.0 K/mm3 (0.0-0.1) 12/12/17 05:41 Metamyelocytes # 0.3 K/mm3 12/12/17 05:41 Myelocytes # 0.0 K/mm3 12/12/17 05:41 Promyelocytes # 0.0 K/mm3 12/12/17 05:41 Blast Cells # 0.0 K/mm3 12/12/17 05:41 WBC Morphology Not Reportable 12/12/17 05:41 Hypersegmented Neuts Not Reportable 12/12/17 05:41 Hyposegmented Neuts Not Reportable 12/12/17 05:41 Hypogranular Neuts Not Reportable 12/12/17 05:41 Smudge Cells Not Reportable 12/12/17 05:41 Toxic Granulation Not Reportable 12/12/17 05:41 Toxic Vacuolation Not Reportable 12/12/17 05:41 Dohle Bodies Not Reportable 12/12/17 05:41 Pelger-Huet Anomaly Not Reportable 12/12/17 05:41 Evangelina Rods Not Reportable 12/12/17 05:41 Platelet Estimate Consistent w auto 12/12/17 05:41 Clumped Platelets Not Reportable 12/12/17 05:41 Plt Clumps, EDTA Not Reportable 12/12/17 05:41 Large Platelets Not Reportable 12/12/17 05:41 Giant Platelets Not Reportable 12/12/17 05:41 Platelet Satelliting Not Reportable 12/12/17 05:41 Plt Morphology Comment Not Reportable 12/12/17 05:41 RBC Morphology Not Reportable 12/12/17 05:41 Dimorphic RBCs Not Reportable 12/12/17 05:41 Polychromasia 1+ 12/12/17 05:41 Hypochromasia Few 12/12/17 05:41 Poikilocytosis Not Reportable 12/12/17 05:41 Anisocytosis 1+ 12/12/17 05:41 Microcytosis Few 12/12/17 05:41 Macrocytosis Not Reportable 12/12/17 05:41 Spherocytes Not Reportable 12/12/17 05:41 Pappenheimer Bodies Not Reportable 12/12/17 05:41 Sickle Cells Not Reportable 12/12/17 05:41 Target Cells Not Reportable 12/12/17 05:41 Tear Drop Cells Not Reportable 12/12/17 05:41 Ovalocytes Not Reportable 12/12/17 05:41 Stomatocytes 1+ 12/12/17 05:41 Helmet Cells Not Reportable 12/12/17 05:41 [place] Bodies Not Reportable 12/12/17 05:41 [place] Rings Not Reportable 12/12/17 05:41 Lucretia Cells Not Reportable 12/12/17 05:41 Bite Cells Not Reportable 12/12/17 05:41 Crenated Cell Not Reportable 12/12/17 05:41 Elliptocytes Not Reportable 12/12/17 05:41 Acanthocytes (Spur) Not Reportable 12/12/17 05:41 Rouleaux Not Reportable 12/12/17 05:41 Hemoglobin C Crystals Not Reportable 12/12/17 05:41 Schistocytes Not Reportable 12/12/17 05:41 Malaria parasites Not Reportable 12/12/17 05:41 [place] Bodies Not Reportable 12/12/17 05:41 Hem Pathologist Commnt No 12/12/17 05:41 PT 15.4 Sec. (12.2-14.9) H 12/14/17 05:11 INR 1.17 (0.87-1.13) H 12/14/17 05:11 APTT 33.8 Sec. (24.2-36.6) 11/26/17 06:29 POC ABG pH 7.505 (7.35-7.45) H 11/23/17 04:56 POC ABG pCO2 26.3 (35-45) L 11/23/17 04:56 POC ABG pO2 100 (80-105) 11/23/17 04:56 POC ABG HCO3 20.8 11/23/17 04:56 POC ABG Total CO2 22 11/23/17 04:56 POC ABG O2 Sat 98 11/23/17 04:56 POC ABG Base Excess -2 11/23/17 04:56 FiO2 30 % 11/23/17 04:56 Sodium 131 mmol/L (137-145) L D 12/16/17 04:55 Potassium 2.8 mmol/L (3.6-5.0) L* D 12/16/17 04:55 Chloride 93.2 mmol/L (98-107) L 12/16/17 04:55 Carbon Dioxide 24 mmol/L (22-30) 12/16/17 04:55 Anion Gap 17 mmol/L 12/16/17 04:55 BUN 24 mg/dL (9-20) H 12/16/17 04:55 Creatinine 2.0 mg/dL (0.8-1.5) H 12/16/17 04:55 Estimated GFR 41 ml/min 12/16/17 04:55 BUN/Creatinine Ratio 12 % 12/16/17 04:55 Glucose 95 mg/dL (75-100) 12/16/17 04:55 POC Glucose 96 (70-105) 12/16/17 05:44 Lactic Acid 1.80 mmol/L (0.7-2.0) 11/27/17 04:06 Calcium 7.7 mg/dL (8.4-10.2) L 12/16/17 04:55 Phosphorus 2.60 mg/dL (2.5-4.5) 12/11/17 15:26 Magnesium 2.00 mg/dL (1.7-2.3) 11/24/17 21:53 Total Bilirubin 0.90 mg/dL (0.1-1.2) 11/24/17 21:53 AST 170 units/L (5-40) H 11/24/17 21:53 ALT 179 units/L (7-56) H 11/24/17 21:53 Alkaline Phosphatase 175 units/L (35-129) H 11/24/17 21:53 Total Creatine Kinase 84 units/L (55-170) 11/12/17 20:03 CK-MB (CK-2) < 1.0 ng/mL (0.0-4.0) 11/12/17 20:03 CK-MB (CK-2) Rel Index 1.1 (0-4) 11/12/17 20:03 Troponin T 0.098 ng/mL (0.00-0.029) H 11/12/17 Unknown C-Reactive Protein 25.70 mg/dL (0.00-1.30) H 11/11/17 23:20 NT-Pro-B Natriuret Pep 792.4 pg/mL (0-900) 11/11/17 23:20 Total Protein 5.5 g/dL (6.3-8.2) L 11/24/17 21:53 Albumin 1.8 g/dL (3.9-5) L 11/24/17 21:53 Albumin/Globulin Ratio 0.5 % 11/24/17 21:53 Triglycerides 86 mg/dL (2-149) 11/11/17 23:20 Cholesterol 82 mg/dL (50-199) 11/11/17 23:20 LDL Cholesterol Direct 42 mg/dL (50-130) L 11/11/17 23:20 HDL Cholesterol 24 mg/dL (40-59) L 11/11/17 23:20 Cholesterol/HDL Ratio 3.41 % 11/11/17 23:20 Lipase 30 units/L (13-60) 11/11/17 23:20 Urine Color Nicole (Yellow) 11/11/17 23:09 Urine Turbidity Cloudy (Clear) 11/11/17 23:09 Urine pH 5.0 (5.0-7.0) 11/11/17 23:09 Ur Specific [place] 1.025 (1.003-1.030) 11/11/17 23:09 Urine Protein 100 mg/dl mg/dL (Negative) 11/11/17 23:09 Urine Glucose (UA) 50 mg/dL (Negative) 11/11/17 23:09 Urine Ketones Neg mg/dL (Negative) 11/11/17 23:09 Urine Blood Neg (Negative) 11/11/17 23:09 Urine Nitrite Neg (Negative) 11/11/17 23:09 Urine Bilirubin Neg (Negative) 11/11/17 23:09 Urine Urobilinogen 4.0 mg/dL (<2.0) 11/11/17 23:09 Ur Leukocyte Esterase Neg (Negative) 11/11/17 23:09 Urine WBC (Auto) 5.0 /HPF (0.0-6.0) 11/11/17 23:09 Urine RBC (Auto) 4.0 /HPF (0.0-6.0) 11/11/17 23:09 Urine Bacteria (Auto) 3+ /HPF (Negative) 11/11/17 23:09 Amorphous Crystals 3+ 11/11/17 23:09 Hyaline Casts 76 /LPF 11/11/17 23:09 Urine Mucus 2+ /HPF 11/11/17 23:09 Hepatitis A IgM Ab Non-reactive (NonReactive) 11/22/17 19:45 Hep Bs Antigen Non-reactive (Negative) 11/22/17 19:45 Hep B Core IgM Ab Non-reactive (NonReactive) 11/22/17 19:45 Hepatitis C Antibody Reactive (NonReactive) A 11/22/17 19:45 Blood Type A POSITIVE 11/24/17 08:27 Antibody Screen Negative 11/24/17 08:27 Crossmatch See Detail 11/24/17 08:27 - Imaging and Cardiology Chest x-ray: report reviewed, image reviewed
--- NOTE | 2017-12-16 09:34 | Progress Note ---
Assessment and Plan Assessment * Acute kidney injury secondary to ATN --Intermittent HD started on 11/23/17 * Sepsis secondary to peritonitis/PEG malpositioning --RUQ/LUQ drains: Enterobacter, Heather (non albicans) * Aspiration pneumonitis related to above * Anemia * Acute CVA * Carotid artery disease s/p CEA * Encephalopathy Plan: * No evidence of renal recovery * Continue HD MWF. UF as tolerated * Abx per ID * hb noted, prbcs prn * uf as tolerated with HD * IR and surgery notes reviewed * Strict I/O * Avoid potential nephrptoxins * Dose medications for renal function * Replete lytes prn * Avoid nephrotoxins Subjective Date of service: 12/16/17 Principal diagnosis: Acute hypoxic respiratory failure, s/p Trach Interval history: new consult noted, last seen 11/09 with normal renal function Objective - Exam Narrative Exam: Constitutional: lethargic, other (intubated) Eyes: non-icteric ENT: oropharynx moist, other (ETT at 24 cm) Neck: supple, no JVD Ascultation: Bilateral: rhonchi (bilateral LT >>RT) Cardiovascular: regular rate and rhythm, other (tachycardic) Gastrointestinal: normoactive bowel sounds, non-distended Integumentary: normal Extremities: no cyanosis, no edema, other (RT femoral line in place) Neurologic: unable to assess (opens eyes spontaneously but does not follow commands . ) - Vital Signs Vital signs: Vital Signs - 12hr 12/15/17 12/15/17 12/15/17 22:00 23:00 23:56 Temperature Pulse Rate 98 H 93 H Pulse Rate [ Right From Monitor] Respiratory 24 25 H Rate Blood Pressure 128/98 126/93 O2 Sat by Pulse 98 100 Oximetry O2 Sat by Pulse 98 Oximetry [ Assessment] 12/16/17 12/16/17 12/16/17 00:00 00:04 01:00 Temperature 98.6 F Pulse Rate 94 H 94 H 96 H Pulse Rate [ Right From Monitor] Respiratory 25 H 24 19 Rate Blood Pressure 150/90 150/90 156/94 O2 Sat by Pulse 100 100 100 Oximetry O2 Sat by Pulse Oximetry [ Assessment] 12/16/17 12/16/17 12/16/17 02:00 03:00 04:00 Temperature 98 F Pulse Rate 103 H 96 H Pulse Rate [ Right From Monitor] Respiratory 30 H 25 H Rate Blood Pressure 152/90 141/75 141/75 O2 Sat by Pulse 99 100 100 Oximetry O2 Sat by Pulse Oximetry [ Assessment] 12/16/17 12/16/17 12/16/17 04:23 05:00 06:00 Temperature Pulse Rate 96 H 91 H Pulse Rate [ Right From Monitor] Respiratory 23 23 Rate Blood Pressure 159/81 138/69 O2 Sat by Pulse 100 100 Oximetry O2 Sat by Pulse 100 Oximetry [ Assessment] 12/16/17 12/16/17 12/16/17 07:00 08:00 09:29 Temperature 98.1 F Pulse Rate 99 H 93 H Pulse Rate [ 92 H Right From Monitor] Respiratory 26 H 23 Rate Blood Pressure 145/80 135/75 O2 Sat by Pulse 100 100 100 Oximetry O2 Sat by Pulse 100 Oximetry [ Assessment] - Lab 12/16/17 05:14 12/16/17 04:55 Most recent lab results Calcium 7.7 mg/dL (8.4-10.2) L 12/16/17 04:55 Phosphorus 2.60 mg/dL (2.5-4.5) 12/11/17 15:26 Magnesium 2.00 mg/dL (1.7-2.3) 11/24/17 21:53
[2017-12-16] MEDS: MERREM 1,000 MG in NACL 0.9% 100 ML IV SCH (09:39)
[2017-12-16] MEDS: DIFLUCAN FEEDTUBE SCH (09:44)
[2017-12-16] MEDS: LOPRESSOR PO SCH ×2 (09:45→21:11)
[2017-12-16] MEDS: PREVACID SOLUTAB FEEDTUBE SCH ×2 (09:45→21:11)
--- NOTE | 2017-12-16 09:56 | Progress Note ---
Assessment and Plan - Patient Problems (1) Gastrostomy malfunction Current Visit: Yes Status: Acute Plan to address problem: Pt is stable. After reviewing the records, discussing the case with multiple attendings, and seeing the patient, it is clear that we do not have an acute perforation. Most likely, the PEG tube started to migrate out of position prior to 11/18 as evidenced by no PEG button seen on EGD and no obvious hole in the stomach. As the contrast is restricted to certain areas in the abdomen, the fluid is loculated. The "ascites" may be tube feeds and/or reactionary fluid. Regardless, patient is not showing signs of obvious peritonitis. In this case, it may be prudent to try placing a few drains in the abdomen to remove that largest collections. I have already discussed this case with Dr. Moreira who agreed to review the case and see if that was possible. The alternative would be to take the patient for an ex-lap and washout the abdomen. I'm concerned that there may be a lot of inflammatory changes in the abdomen which would put him at risk for bowel injuries from the procedure. Therefore, this will be our back-up plan if the drains do not resolve the problem. As for nutritional access , for now, I would recommend an NGT. I doubt he has an active leak, so there is no need to test the stomach prior to using it. I have explained this plan in detail to the daughter (Jannette) and the attendings from ICU, GI, and hospitalist service. All were in agreement. - 11/25/17 Initial Consult Pt appears stable. s/p dx lap and washout - 12/03 POD#13. Pt stable. Remaining drains with minimal output, but not ready to come out based on appearance. Hope to remove at least 1-2 in a few days. Appears that the left lateral drain is almost back to normal body fluid. Would leave surgical incisions open to air. Please call with questions. Will follow along peripherally. Time=10min Subjective Date of service: 12/16/17 Patient Reports: Positive: other (new new events) Objective Vital Signs - 12hr 12/15/17 12/15/17 12/15/17 22:00 23:00 23:56 Temperature Pulse Rate 98 H 93 H Pulse Rate [ Right From Monitor] Respiratory 24 25 H Rate Blood Pressure 128/98 126/93 O2 Sat by Pulse 98 100 Oximetry O2 Sat by Pulse 98 Oximetry [ Assessment] 12/16/17 12/16/17 12/16/17 00:00 00:04 01:00 Temperature 98.6 F Pulse Rate 94 H 94 H 96 H Pulse Rate [ Right From Monitor] Respiratory 25 H 24 19 Rate Blood Pressure 150/90 150/90 156/94 O2 Sat by Pulse 100 100 100 Oximetry O2 Sat by Pulse Oximetry [ Assessment] 12/16/17 12/16/17 12/16/17 02:00 03:00 04:00 Temperature 98 F Pulse Rate 103 H 96 H Pulse Rate [ Right From Monitor] Respiratory 30 H 25 H Rate Blood Pressure 152/90 141/75 141/75 O2 Sat by Pulse 99 100 100 Oximetry O2 Sat by Pulse Oximetry [ Assessment] 12/16/17 12/16/17 12/16/17 04:23 05:00 06:00 Temperature Pulse Rate 96 H 91 H Pulse Rate [ Right From Monitor] Respiratory 23 23 Rate Blood Pressure 159/81 138/69 O2 Sat by Pulse 100 100 Oximetry O2 Sat by Pulse 100 Oximetry [ Assessment] 12/16/17 12/16/17 12/16/17 07:00 08:00 09:29 Temperature 98.1 F Pulse Rate 99 H 93 H Pulse Rate [ 92 H Right From Monitor] Respiratory 26 H 23 Rate Blood Pressure 145/80 135/75 O2 Sat by Pulse 100 100 100 Oximetry O2 Sat by Pulse 100 Oximetry [ Assessment] 12/16/17 09:45 Temperature Pulse Rate 90 Pulse Rate [ Right From Monitor] Respiratory Rate Blood Pressure 158/88 O2 Sat by Pulse Oximetry O2 Sat by Pulse Oximetry [ Assessment] - General physical appearance no distress, no pain, other (opened his eyes to voice, but did not follow commands) - Respiratory normal expansion, normal respiratory effort - Abdomen soft, not tender, not distended, surgical scars (C/D/I), other (Drains with various types of fluid. Left lat seems to changing to serous fluid from purulent ) - Labs 12/16/17 05:14 12/16/17 04:55 Diabetes panel 12/16/17 Range/Units 04:55 Sodium 131 L D (137-145) mmol/L Potassium 2.8 L* D (3.6-5.0) mmol/L Chloride 93.2 L (98-107) mmol/L Carbon Dioxide 24 (22-30) mmol/L BUN 24 H (9-20) mg/dL Creatinine 2.0 H (0.8-1.5) mg/dL Glucose 95 (75-100) mg/dL Calcium 7.7 L (8.4-10.2) mg/dL Calcium panel 12/16/17 Range/Units 04:55 Calcium 7.7 L (8.4-10.2) mg/dL Pituitary panel 12/16/17 Range/Units 04:55 Sodium 131 L D (137-145) mmol/L Potassium 2.8 L* D (3.6-5.0) mmol/L Chloride 93.2 L (98-107) mmol/L Carbon Dioxide 24 (22-30) mmol/L BUN 24 H (9-20) mg/dL Creatinine 2.0 H (0.8-1.5) mg/dL Glucose 95 (75-100) mg/dL Calcium 7.7 L (8.4-10.2) mg/dL Adrenal panel 12/16/17 Range/Units 04:55 Sodium 131 L D (137-145) mmol/L Potassium 2.8 L* D (3.6-5.0) mmol/L Chloride 93.2 L (98-107) mmol/L Carbon Dioxide 24 (22-30) mmol/L BUN 24 H (9-20) mg/dL Creatinine 2.0 H (0.8-1.5) mg/dL Glucose 95 (75-100) mg/dL Calcium 7.7 L (8.4-10.2) mg/dL
[2017-12-16] MEDS: KCL 20MEQ/100ML 20 MEQ/100 ML BAG IV SCH ×2 (10:50→12:04)
--- NOTE | 2017-12-16 11:51 | Progress Note ---
Assessment and Plan 67 y/o male with acute on chronic respiratory failure, now trached, with peritonitis from dislodged peg tube s/p 2 IR drains now with NGT feedings now spiking fevers again. 1. Trach Care 2. IV abx therapy per ID 3. Electrolytes per primary and renal 4. Will continue to follow along with you. Subjective Date of service: 12/16/17 Principal diagnosis: Acute hypoxic respiratory failure, s/p Trach Interval history: No acute pulmonary events. Reviewed surgical note. Objective Vital Signs - 12hr 12/15/17 12/16/17 12/16/17 23:56 00:00 00:04 Temperature 98.6 F Pulse Rate 94 H 94 H Pulse Rate [ Right From Monitor] Respiratory 25 H 24 Rate Blood Pressure 150/90 150/90 O2 Sat by Pulse 100 100 Oximetry O2 Sat by Pulse 98 Oximetry [ Assessment] 12/16/17 12/16/17 12/16/17 01:00 02:00 03:00 Temperature Pulse Rate 96 H 103 H 96 H Pulse Rate [ Right From Monitor] Respiratory 19 30 H 25 H Rate Blood Pressure 156/94 152/90 141/75 O2 Sat by Pulse 100 99 100 Oximetry O2 Sat by Pulse Oximetry [ Assessment] 12/16/17 12/16/17 12/16/17 04:00 04:23 05:00 Temperature 98 F Pulse Rate 96 H Pulse Rate [ Right From Monitor] Respiratory 23 Rate Blood Pressure 141/75 159/81 O2 Sat by Pulse 100 100 Oximetry O2 Sat by Pulse 100 Oximetry [ Assessment] 12/16/17 12/16/17 12/16/17 06:00 07:00 08:00 Temperature 98.1 F Pulse Rate 91 H 99 H 93 H Pulse Rate [ 92 H Right From Monitor] Respiratory 23 26 H 23 Rate Blood Pressure 138/69 145/80 135/75 O2 Sat by Pulse 100 100 100 Oximetry O2 Sat by Pulse Oximetry [ Assessment] 12/16/17 12/16/17 12/16/17 09:00 09:29 09:45 Temperature Pulse Rate 108 H 90 Pulse Rate [ Right From Monitor] Respiratory 30 H Rate Blood Pressure 158/88 158/88 O2 Sat by Pulse 100 100 Oximetry O2 Sat by Pulse 100 Oximetry [ Assessment] 12/16/17 12/16/17 12/16/17 10:00 11:00 11:39 Temperature 97.8 F Pulse Rate 91 H 84 Pulse Rate [ Right From Monitor] Respiratory 25 H 24 Rate Blood Pressure 132/70 128/73 O2 Sat by Pulse 98 100 Oximetry O2 Sat by Pulse Oximetry [ Assessment] Constitutional: no acute distress, alert Eyes: non-icteric ENT: oropharynx moist Neck: supple (trach in position), no JVD Effort: normal Ascultation: Bilateral: clear, rhonchi (bilateral,post tussive), other (coarse BS bilaterally) Cardiovascular: regular rate and rhythm Gastrointestinal: normoactive bowel sounds, soft, non-tender, other (drainages in place) Integumentary: normal Extremities: no cyanosis, pink and warm, anasarca Neurologic: other (L hemiparesis,awake, response to my voice) Psychiatric: other (unable to assess) CBC and BMP: 12/16/17 05:14 12/16/17 04:55 ABG, PT/INR, D-dimer: ABG POC ABG pH 7.505 (7.35-7.45) H 11/23/17 04:56 POC ABG pCO2 26.3 (35-45) L 11/23/17 04:56 POC ABG pO2 100 (80-105) 11/23/17 04:56 POC ABG HCO3 20.8 11/23/17 04:56 POC ABG Total CO2 22 11/23/17 04:56 POC ABG O2 Sat 98 11/23/17 04:56 PT/INR, D-dimer PT 15.4 Sec. (12.2-14.9) H 12/14/17 05:11 INR 1.17 (0.87-1.13) H 12/14/17 05:11 Abnormal lab findings: Abnormal Labs 11/11/17 11/11/17 11/11/17 23:18 23:20 23:20 WBC RBC Hgb 10.4 L Hct 32.6 L D MCV MCH 27 L MCHC RDW 17.4 H Plt Count 105 L Lymph % (Auto) [place] % (Auto) Eos % (Auto) Lymph # [place] # Eos # Seg Neutrophils % Seg Neuts % (Manual) Lymphocytes % (Manual) 8.0 L Monocytes % (Manual) Eosinophils % (Manual) Nucleated RBC % 1.0 H Seg Neutrophils # Seg Neutrophils # Man Lymphocytes # (Manual) 0.7 L Monocytes # (Manual) Eosinophils # (Manual) PT INR POC ABG pH 7.550 H POC ABG pCO2 31.6 L POC ABG pO2 Sodium 146 H Potassium Chloride Carbon Dioxide BUN 26 H Creatinine 1.7 H D Glucose 133 H POC Glucose Lactic Acid Calcium Magnesium AST ALT Alkaline Phosphatase Troponin T 0.117 H* C-Reactive Protein Total Protein Albumin 2.5 L LDL Cholesterol Direct 42 L HDL Cholesterol 24 L Hepatitis C Antibody Crossmatch 11/11/17 11/12/17 11/12/17 23:20 00:23 00:23 WBC RBC Hgb Hct MCV MCH MCHC RDW Plt Count Lymph % (Auto) [place] % (Auto) Eos % (Auto) Lymph # [place] # Eos # Seg Neutrophils % Seg Neuts % (Manual) Lymphocytes % (Manual) Monocytes % (Manual) Eosinophils % (Manual) Nucleated RBC % Seg Neutrophils # Seg Neutrophils # Man Lymphocytes # (Manual) Monocytes # (Manual) Eosinophils # (Manual) PT 16.7 H INR 1.28 H POC ABG pH POC ABG pCO2 POC ABG pO2 Sodium Potassium Chloride Carbon Dioxide BUN Creatinine Glucose POC Glucose Lactic Acid 3.20 H* Calcium Magnesium AST ALT Alkaline Phosphatase Troponin T C-Reactive Protein 25.70 H Total Protein Albumin LDL Cholesterol Direct HDL Cholesterol Hepatitis C Antibody Crossmatch 11/12/17 11/12/17 11/12/17 00:46 01:27 01:27 WBC RBC Hgb Hct MCV MCH MCHC RDW Plt Count Lymph % (Auto) [place] % (Auto) Eos % (Auto) Lymph # [place] # Eos # Seg Neutrophils % Seg Neuts % (Manual) Lymphocytes % (Manual) Monocytes % (Manual) Eosinophils % (Manual) Nucleated RBC % Seg Neutrophils # Seg Neutrophils # Man Lymphocytes # (Manual) Monocytes # (Manual) Eosinophils # (Manual) PT INR POC ABG pH 7.495 H POC ABG pCO2 32.0 L POC ABG pO2 64 L Sodium Potassium Chloride Carbon Dioxide BUN Creatinine Glucose POC Glucose Lactic Acid 3.70 H* Calcium Magnesium AST ALT Alkaline Phosphatase Troponin T 0.096 H C-Reactive Protein Total Protein Albumin LDL Cholesterol Direct HDL Cholesterol Hepatitis C Antibody Crossmatch 11/12/17 11/12/17 11/12/17 03:21 04:50 06:27 WBC RBC Hgb Hct MCV MCH MCHC RDW Plt Count Lymph % (Auto) [place] % (Auto) Eos % (Auto) Lymph # [place] # Eos # Seg Neutrophils % Seg Neuts % (Manual) Lymphocytes % (Manual) Monocytes % (Manual) Eosinophils % (Manual) Nucleated RBC % Seg Neutrophils # Seg Neutrophils # Man Lymphocytes # (Manual) Monocytes # (Manual) Eosinophils # (Manual) PT INR POC ABG pH POC ABG pCO2 POC ABG pO2 109 H Sodium Potassium Chloride Carbon Dioxide BUN Creatinine Glucose POC Glucose Lactic Acid 3.80 H* 2.20 H* Calcium Magnesium AST ALT Alkaline Phosphatase Troponin T C-Reactive Protein Total Protein Albumin LDL Cholesterol Direct HDL Cholesterol Hepatitis C Antibody Crossmatch 11/12/17 11/12/17 11/12/17 09:24 09:24 09:24 WBC RBC Hgb 10.4 L Hct 33.4 L MCV MCH MCHC RDW Plt Count Lymph % (Auto) [place] % (Auto) Eos % (Auto) Lymph # [place] # Eos # Seg Neutrophils % Seg Neuts % (Manual) Lymphocytes % (Manual) Monocytes % (Manual) Eosinophils % (Manual) Nucleated RBC % Seg Neutrophils # Seg Neutrophils # Man Lymphocytes # (Manual) Monocytes # (Manual) Eosinophils # (Manual) PT INR POC ABG pH POC ABG pCO2 POC ABG pO2 Sodium Potassium Chloride Carbon Dioxide BUN Creatinine Glucose POC Glucose Lactic Acid 2.90 H* Calcium Magnesium AST ALT Alkaline Phosphatase Troponin T 0.091 H C-Reactive Protein Total Protein Albumin LDL Cholesterol Direct HDL Cholesterol Hepatitis C Antibody Crossmatch 11/12/17 11/12/17 11/12/17 12:56 20:03 Unknown WBC RBC Hgb Hct MCV MCH MCHC RDW Plt Count Lymph % (Auto) [place] % (Auto) Eos % (Auto) Lymph # [place] # Eos # Seg Neutrophils % Seg Neuts % (Manual) Lymphocytes % (Manual) Monocytes % (Manual) Eosinophils % (Manual) Nucleated RBC % Seg Neutrophils # Seg Neutrophils # Man Lymphocytes # (Manual) Monocytes # (Manual) Eosinophils # (Manual) PT INR POC ABG pH POC ABG pCO2 POC ABG pO2 Sodium Potassium Chloride Carbon Dioxide BUN Creatinine Glucose POC Glucose Lactic Acid 3.60 H* Calcium Magnesium AST ALT Alkaline Phosphatase Troponin T 0.102 H* 0.156 H* D C-Reactive Protein Total Protein Albumin LDL Cholesterol Direct HDL Cholesterol Hepatitis C Antibody Crossmatch 11/12/17 11/13/17 11/13/17 Unknown 04:50 04:50 WBC 12.2 H RBC 3.51 L Hgb 9.3 L Hct 30.1 L MCV MCH 26 L MCHC 31 L RDW 18.0 H Plt Count 128 L Lymph % (Auto) 8.6 L [place] % (Auto) 11.1 H Eos % (Auto) Lymph # 1.1 L [place] # 1.4 H Eos # Seg Neutrophils % 80.1 H Seg Neuts % (Manual) Lymphocytes % (Manual) Monocytes % (Manual) Eosinophils % (Manual) Nucleated RBC % Seg Neutrophils # 9.8 H Seg Neutrophils # Man Lymphocytes # (Manual) Monocytes # (Manual) Eosinophils # (Manual) PT INR POC ABG pH POC ABG pCO2 POC ABG pO2 Sodium 149 H Potassium 5.1 H Chloride 114.4 H Carbon Dioxide 18 L BUN 52 H Creatinine 3.3 H D Glucose 129 H POC Glucose Lactic Acid Calcium 7.9 L Magnesium AST ALT Alkaline Phosphatase Troponin T 0.098 H C-Reactive Protein Total Protein Albumin LDL Cholesterol Direct HDL Cholesterol Hepatitis C Antibody Crossmatch 11/13/17 11/13/17 11/14/17 04:51 09:34 04:21 WBC RBC Hgb Hct MCV MCH MCHC RDW Plt Count Lymph % (Auto) [place] % (Auto) Eos % (Auto) Lymph # [place] # Eos # Seg Neutrophils % Seg Neuts % (Manual) Lymphocytes % (Manual) Monocytes % (Manual) Eosinophils % (Manual) Nucleated RBC % Seg Neutrophils # Seg Neutrophils # Man Lymphocytes # (Manual) Monocytes # (Manual) Eosinophils # (Manual) PT INR POC ABG pH POC ABG pCO2 30.1 L 29.8 L POC ABG pO2 135 H Sodium Potassium Chloride Carbon Dioxide BUN Creatinine Glucose POC Glucose Lactic Acid 2.10 H* Calcium Magnesium AST ALT Alkaline Phosphatase Troponin T C-Reactive Protein Total Protein Albumin LDL Cholesterol Direct HDL Cholesterol Hepatitis C Antibody Crossmatch 11/15/17 11/15/17 11/16/17 04:52 15:50 05:17 WBC RBC Hgb Hct MCV MCH MCHC RDW Plt Count Lymph % (Auto) [place] % (Auto) Eos % (Auto) Lymph # [place] # Eos # Seg Neutrophils % Seg Neuts % (Manual) Lymphocytes % (Manual) Monocytes % (Manual) Eosinophils % (Manual) Nucleated RBC % Seg Neutrophils # Seg Neutrophils # Man Lymphocytes # (Manual) Monocytes # (Manual) Eosinophils # (Manual) PT INR POC ABG pH POC ABG pCO2 29.5 L 31.5 L POC ABG pO2 115 H 122 H Sodium 154 H Potassium Chloride 117.9 H Carbon Dioxide 19 L BUN 87 H Creatinine 4.1 H Glucose POC Glucose Lactic Acid Calcium 8.1 L Magnesium AST ALT Alkaline Phosphatase Troponin T C-Reactive Protein Total Protein Albumin LDL Cholesterol Direct HDL Cholesterol Hepatitis C Antibody Crossmatch 11/16/17 11/17/17 11/17/17 16:37 04:07 10:00 WBC 14.7 H RBC 3.23 L Hgb 8.3 L Hct 28.1 L MCV MCH 26 L MCHC 30 L RDW 18.8 H Plt Count Lymph % (Auto) [place] % (Auto) Eos % (Auto) Lymph # [place] # Eos # Seg Neutrophils % Seg Neuts % (Manual) 75 H Lymphocytes % (Manual) 8.0 L Monocytes % (Manual) Eosinophils % (Manual) Nucleated RBC % 1.0 H Seg Neutrophils # Seg Neutrophils # Man 11.0 H Lymphocytes # (Manual) Monocytes # (Manual) 0.9 H Eosinophils # (Manual) PT INR POC ABG pH POC ABG pCO2 POC ABG pO2 Sodium 153 H 155 H Potassium Chloride 117.3 H 119.4 H Carbon Dioxide 19 L 20 L BUN 90 H 89 H Creatinine 3.9 H 3.6 H Glucose 111 H 115 H POC Glucose Lactic Acid Calcium 8.1 L 8.0 L Magnesium AST ALT Alkaline Phosphatase Troponin T C-Reactive Protein Total Protein Albumin LDL Cholesterol Direct HDL Cholesterol Hepatitis C Antibody Crossmatch 11/18/17 11/18/17 11/18/17 04:34 04:34 04:34 WBC 15.5 H RBC 3.13 L Hgb 8.1 L Hct 26.3 L MCV MCH 26 L MCHC 31 L RDW 18.6 H Plt Count Lymph % (Auto) [place] % (Auto) Eos % (Auto) Lymph # [place] # Eos # Seg Neutrophils % Seg Neuts % (Manual) 81.0 H Lymphocytes % (Manual) 7.0 L Monocytes % (Manual) Eosinophils % (Manual) Nucleated RBC % 1.0 H Seg Neutrophils # Seg Neutrophils # Man 12.6 H Lymphocytes # (Manual) 1.1 L Monocytes # (Manual) Eosinophils # (Manual) PT 16.7 H INR 1.30 H POC ABG pH POC ABG pCO2 POC ABG pO2 Sodium 155 H Potassium 3.2 L Chloride 121.0 H Carbon Dioxide 20 L BUN 74 H Creatinine 2.9 H Glucose 126 H POC Glucose Lactic Acid Calcium 7.9 L Magnesium AST ALT Alkaline Phosphatase Troponin T C-Reactive Protein Total Protein Albumin LDL Cholesterol Direct HDL Cholesterol Hepatitis C Antibody Crossmatch 11/19/17 11/19/17 11/20/17 04:44 04:44 00:38 WBC 19.0 H 22.2 H RBC 3.20 L 3.17 L Hgb 8.4 L 7.9 L Hct 27.9 L 26.4 L MCV 83 L MCH 26 L 25 L MCHC 30 L 30 L RDW 19.1 H 18.9 H Plt Count Lymph % (Auto) [place] % (Auto) Eos % (Auto) Lymph # [place] # Eos # Seg Neutrophils % Seg Neuts % (Manual) 83.0 H Lymphocytes % (Manual) 3.0 L Monocytes % (Manual) 9.0 H Eosinophils % (Manual) Nucleated RBC % Seg Neutrophils # Seg Neutrophils # Man 18.4 H Lymphocytes # (Manual) 0.7 L Monocytes # (Manual) 2.0 H Eosinophils # (Manual) PT INR POC ABG pH POC ABG pCO2 POC ABG pO2 Sodium 152 H Potassium Chloride 117.1 H Carbon Dioxide 17 L BUN 66 H Creatinine 2.8 H Glucose 119 H POC Glucose Lactic Acid Calcium 7.8 L Magnesium 2.70 H AST ALT Alkaline Phosphatase Troponin T C-Reactive Protein Total Protein Albumin LDL Cholesterol Direct HDL Cholesterol Hepatitis C Antibody Crossmatch 11/20/17 11/20/17 11/20/17 03:29 04:48 13:38 WBC RBC Hgb Hct MCV MCH MCHC RDW Plt Count Lymph % (Auto) [place] % (Auto) Eos % (Auto) Lymph # [place] # Eos # Seg Neutrophils % Seg Neuts % (Manual) Lymphocytes % (Manual) Monocytes % (Manual) Eosinophils % (Manual) Nucleated RBC % Seg Neutrophils # Seg Neutrophils # Man Lymphocytes # (Manual) Monocytes # (Manual) Eosinophils # (Manual) PT INR POC ABG pH POC ABG pCO2 29.4 L POC ABG pO2 Sodium 148 H Potassium 3.4 L Chloride 113.7 H Carbon Dioxide 18 L BUN 59 H Creatinine 2.7 H Glucose 113 H POC Glucose 128 H Lactic Acid Calcium 7.8 L Magnesium AST ALT Alkaline Phosphatase Troponin T C-Reactive Protein Total Protein Albumin LDL Cholesterol Direct HDL Cholesterol Hepatitis C Antibody Crossmatch 11/20/17 11/20/17 11/21/17 17:38 23:40 00:13 WBC RBC Hgb 8.4 L Hct 28.0 L MCV MCH MCHC RDW Plt Count Lymph % (Auto) [place] % (Auto) Eos % (Auto) Lymph # [place] # Eos # Seg Neutrophils % Seg Neuts % (Manual) Lymphocytes % (Manual) Monocytes % (Manual) Eosinophils % (Manual) Nucleated RBC % Seg Neutrophils # Seg Neutrophils # Man Lymphocytes # (Manual) Monocytes # (Manual) Eosinophils # (Manual) PT INR POC ABG pH POC ABG pCO2 POC ABG pO2 Sodium Potassium Chloride Carbon Dioxide BUN Creatinine Glucose POC Glucose 115 H 145 H Lactic Acid Calcium Magnesium AST ALT Alkaline Phosphatase Troponin T C-Reactive Protein Total Protein Albumin LDL Cholesterol Direct HDL Cholesterol Hepatitis C Antibody Crossmatch 11/21/17 11/21/17 11/21/17 04:30 04:30 04:58 WBC 21.0 H RBC Hgb 9.6 L Hct 32.7 L MCV MCH 25 L MCHC 29 L RDW 19.7 H Plt Count 746 H Lymph % (Auto) [place] % (Auto) Eos % (Auto) Lymph # [place] # Eos # Seg Neutrophils % Seg Neuts % (Manual) Lymphocytes % (Manual) Monocytes % (Manual) Eosinophils % (Manual) Nucleated RBC % Seg Neutrophils # Seg Neutrophils # Man Lymphocytes # (Manual) Monocytes # (Manual) Eosinophils # (Manual) PT INR POC ABG pH POC ABG pCO2 POC ABG pO2 Sodium Potassium Chloride 109.4 H Carbon Dioxide 14 L BUN 59 H Creatinine 3.0 H Glucose 137 H POC Glucose 132 H Lactic Acid Calcium 7.6 L Magnesium AST ALT Alkaline Phosphatase Troponin T C-Reactive Protein Total Protein Albumin LDL Cholesterol Direct HDL Cholesterol Hepatitis C Antibody Crossmatch 11/21/17 11/21/17 11/21/17 06:30 13:43 14:17 WBC 38.2 H RBC Hgb 9.0 L Hct 32.3 L MCV MCH 25 L MCHC 28 L RDW 20.0 H Plt Count 766 H Lymph % (Auto) [place] % (Auto) Eos % (Auto) Lymph # [place] # Eos # Seg Neutrophils % Seg Neuts % (Manual) 85.0 H Lymphocytes % (Manual) 1.0 L Monocytes % (Manual) Eosinophils % (Manual) Nucleated RBC % 2.0 H Seg Neutrophils # Seg Neutrophils # Man 32.5 H Lymphocytes # (Manual) 0.4 L Monocytes # (Manual) 2.3 H Eosinophils # (Manual) PT INR POC ABG pH POC ABG pCO2 18.6 L POC ABG pO2 121 H Sodium 146 H Potassium Chloride 110.9 H Carbon Dioxide 11 L BUN 62 H Creatinine 4.0 H Glucose 64 L POC Glucose Lactic Acid Calcium 7.6 L Magnesium AST ALT Alkaline Phosphatase Troponin T C-Reactive Protein Total Protein Albumin LDL Cholesterol Direct HDL Cholesterol Hepatitis C Antibody Crossmatch 11/21/17 11/21/17 11/22/17 14:17 19:09 00:05 WBC RBC Hgb Hct MCV MCH MCHC RDW Plt Count Lymph % (Auto) [place] % (Auto) Eos % (Auto) Lymph # [place] # Eos # Seg Neutrophils % Seg Neuts % (Manual) Lymphocytes % (Manual) Monocytes % (Manual) Eosinophils % (Manual) Nucleated RBC % Seg Neutrophils # Seg Neutrophils # Man Lymphocytes # (Manual) Monocytes # (Manual) Eosinophils # (Manual) PT INR POC ABG pH POC ABG pCO2 20.0 L POC ABG pO2 Sodium Potassium Chloride Carbon Dioxide BUN Creatinine Glucose POC Glucose 127 H Lactic Acid 7.70 H* Calcium Magnesium AST ALT Alkaline Phosphatase Troponin T C-Reactive Protein Total Protein Albumin LDL Cholesterol Direct HDL Cholesterol Hepatitis C Antibody Crossmatch 11/22/17 11/22/17 11/22/17 03:53 06:00 07:25 WBC RBC Hgb Hct MCV MCH MCHC RDW Plt Count Lymph % (Auto) [place] % (Auto) Eos % (Auto) Lymph # [place] # Eos # Seg Neutrophils % Seg Neuts % (Manual) Lymphocytes % (Manual) Monocytes % (Manual) Eosinophils % (Manual) Nucleated RBC % Seg Neutrophils # Seg Neutrophils # Man Lymphocytes # (Manual) Monocytes # (Manual) Eosinophils # (Manual) PT INR POC ABG pH POC ABG pCO2 22.2 L POC ABG pO2 Sodium 147 H Potassium Chloride 111.9 H Carbon Dioxide 16 L BUN 72 H Creatinine 5.1 H Glucose 181 H POC Glucose 180 H Lactic Acid Calcium 7.1 L Magnesium AST ALT Alkaline Phosphatase Troponin T C-Reactive Protein Total Protein Albumin LDL Cholesterol Direct HDL Cholesterol Hepatitis C Antibody Crossmatch 11/22/17 11/22/17 11/22/17 07:25 07:25 12:05 WBC 31.4 H RBC 3.22 L Hgb 8.0 L Hct 26.7 L MCV 83 L MCH 25 L MCHC 30 L RDW 19.4 H Plt Count 602 H Lymph % (Auto) [place] % (Auto) Eos % (Auto) Lymph # [place] # Eos # Seg Neutrophils % Seg Neuts % (Manual) Lymphocytes % (Manual) Monocytes % (Manual) Eosinophils % (Manual) Nucleated RBC % Seg Neutrophils # Seg Neutrophils # Man Lymphocytes # (Manual) Monocytes # (Manual) Eosinophils # (Manual) PT INR POC ABG pH POC ABG pCO2 POC ABG pO2 Sodium Potassium Chloride Carbon Dioxide BUN Creatinine Glucose POC Glucose 182 H Lactic Acid 5.00 H* Calcium Magnesium AST ALT Alkaline Phosphatase Troponin T C-Reactive Protein Total Protein Albumin LDL Cholesterol Direct HDL Cholesterol Hepatitis C Antibody Crossmatch 11/22/17 11/23/17 11/23/17 19:45 01:28 04:56 WBC RBC Hgb Hct MCV MCH MCHC RDW Plt Count Lymph % (Auto) [place] % (Auto) Eos % (Auto) Lymph # [place] # Eos # Seg Neutrophils % Seg Neuts % (Manual) Lymphocytes % (Manual) Monocytes % (Manual) Eosinophils % (Manual) Nucleated RBC % Seg Neutrophils # Seg Neutrophils # Man Lymphocytes # (Manual) Monocytes # (Manual) Eosinophils # (Manual) PT INR POC ABG pH 7.505 H POC ABG pCO2 26.3 L POC ABG pO2 Sodium Potassium Chloride Carbon Dioxide BUN Creatinine Glucose POC Glucose 165 H Lactic Acid Calcium Magnesium AST ALT Alkaline Phosphatase Troponin T C-Reactive Protein Total Protein Albumin LDL Cholesterol Direct HDL Cholesterol Hepatitis C Antibody Reactive A Crossmatch 11/23/17 11/23/17 11/23/17 07:05 12:32 17:53 WBC RBC Hgb Hct MCV MCH MCHC RDW Plt Count Lymph % (Auto) [place] % (Auto) Eos % (Auto) Lymph # [place] # Eos # Seg Neutrophils % Seg Neuts % (Manual) Lymphocytes % (Manual) Monocytes % (Manual) Eosinophils % (Manual) Nucleated RBC % Seg Neutrophils # Seg Neutrophils # Man Lymphocytes # (Manual) Monocytes # (Manual) Eosinophils # (Manual) PT INR POC ABG pH POC ABG pCO2 POC ABG pO2 Sodium Potassium Chloride Carbon Dioxide 18 L BUN 61 H Creatinine 4.2 H Glucose 153 H POC Glucose 138 H 173 H Lactic Acid Calcium 7.5 L Magnesium AST ALT Alkaline Phosphatase Troponin T C-Reactive Protein Total Protein Albumin LDL Cholesterol Direct HDL Cholesterol Hepatitis C Antibody Crossmatch 11/23/17 11/24/17 11/24/17 23:41 05:42 05:42 WBC 21.5 H RBC 2.48 L Hgb 6.2 L Hct 20.3 L D MCV 82 L MCH 25 L MCHC 31 L RDW 18.9 H Plt Count Lymph % (Auto) [place] % (Auto) Eos % (Auto) Lymph # [place] # Eos # Seg Neutrophils % Seg Neuts % (Manual) 94.0 H Lymphocytes % (Manual) 3.0 L Monocytes % (Manual) Eosinophils % (Manual) Nucleated RBC % Seg Neutrophils # Seg Neutrophils # Man 20.2 H Lymphocytes # (Manual) 0.6 L Monocytes # (Manual) Eosinophils # (Manual) PT INR POC ABG pH POC ABG pCO2 POC ABG pO2 Sodium 149 H Potassium 2.8 L* D Chloride 113.9 H Carbon Dioxide 19 L BUN 31 H Creatinine 2.3 H Glucose 103 H POC Glucose 133 H Lactic Acid Calcium 5.3 L* D Magnesium 1.30 L AST ALT Alkaline Phosphatase Troponin T C-Reactive Protein Total Protein Albumin LDL Cholesterol Direct HDL Cholesterol Hepatitis C Antibody Crossmatch 11/24/17 11/24/17 11/24/17 05:42 08:27 08:27 WBC RBC Hgb Hct MCV MCH MCHC RDW Plt Count Lymph % (Auto) [place] % (Auto) Eos % (Auto) Lymph # [place] # Eos # Seg Neutrophils % Seg Neuts % (Manual) Lymphocytes % (Manual) Monocytes % (Manual) Eosinophils % (Manual) Nucleated RBC % Seg Neutrophils # Seg Neutrophils # Man Lymphocytes # (Manual) Monocytes # (Manual) Eosinophils # (Manual) PT INR POC ABG pH POC ABG pCO2 POC ABG pO2 Sodium Potassium Chloride Carbon Dioxide BUN Creatinine Glucose POC Glucose Lactic Acid 5.40 H* 5.20 H* Calcium Magnesium AST ALT Alkaline Phosphatase Troponin T C-Reactive Protein Total Protein Albumin LDL Cholesterol Direct HDL Cholesterol Hepatitis C Antibody Crossmatch See Detail 11/24/17 11/24/17 11/24/17 12:13 17:22 21:53 WBC 23.0 H RBC 3.32 L Hgb 8.8 L Hct 27.1 L D MCV 82 L MCH 26 L MCHC RDW 17.3 H Plt Count Lymph % (Auto) [place] % (Auto) Eos % (Auto) Lymph # [place] # Eos # Seg Neutrophils % Seg Neuts % (Manual) Lymphocytes % (Manual) Monocytes % (Manual) Eosinophils % (Manual) Nucleated RBC % Seg Neutrophils # Seg Neutrophils # Man Lymphocytes # (Manual) Monocytes # (Manual) Eosinophils # (Manual) PT INR POC ABG pH POC ABG pCO2 POC ABG pO2 Sodium Potassium Chloride Carbon Dioxide BUN Creatinine Glucose POC Glucose 138 H 180 H Lactic Acid Calcium Magnesium AST ALT Alkaline Phosphatase Troponin T C-Reactive Protein Total Protein Albumin LDL Cholesterol Direct HDL Cholesterol Hepatitis C Antibody Crossmatch 11/24/17 11/24/17 11/25/17 21:53 23:28 04:19 WBC RBC Hgb Hct MCV MCH MCHC RDW Plt Count Lymph % (Auto) [place] % (Auto) Eos % (Auto) Lymph # [place] # Eos # Seg Neutrophils % Seg Neuts % (Manual) Lymphocytes % (Manual) Monocytes % (Manual) Eosinophils % (Manual) Nucleated RBC % Seg Neutrophils # Seg Neutrophils # Man Lymphocytes # (Manual) Monocytes # (Manual) Eosinophils # (Manual) PT INR POC ABG pH POC ABG pCO2 POC ABG pO2 Sodium Potassium Chloride 96.3 L Carbon Dioxide BUN 28 H 31 H Creatinine 2.3 H 2.6 H Glucose 125 H 101 H POC Glucose 111 H Lactic Acid Calcium 7.5 L D 7.4 L Magnesium AST 170 H ALT 179 H Alkaline Phosphatase 175 H Troponin T C-Reactive Protein Total Protein 5.5 L Albumin 1.8 L LDL Cholesterol Direct HDL Cholesterol Hepatitis C Antibody Crossmatch 11/25/17 11/25/17 11/26/17 04:19 04:19 06:29 WBC 22.5 H RBC 3.48 L Hgb 9.1 L Hct 28.3 L MCV 81 L MCH 26 L MCHC RDW 17.4 H Plt Count Lymph % (Auto) [place] % (Auto) Eos % (Auto) Lymph # [place] # Eos # Seg Neutrophils % Seg Neuts % (Manual) Lymphocytes % (Manual) Monocytes % (Manual) Eosinophils % (Manual) Nucleated RBC % Seg Neutrophils # Seg Neutrophils # Man Lymphocytes # (Manual) Monocytes # (Manual) Eosinophils # (Manual) PT 23.6 H INR 1.96 H POC ABG pH POC ABG pCO2 POC ABG pO2 Sodium Potassium Chloride Carbon Dioxide BUN 31 H Creatinine 2.6 H Glucose 101 H POC Glucose Lactic Acid Calcium 7.5 L Magnesium AST ALT Alkaline Phosphatase Troponin T C-Reactive Protein Total Protein Albumin LDL Cholesterol Direct HDL Cholesterol Hepatitis C Antibody Crossmatch 11/26/17 11/27/17 11/27/17 06:34 04:06 04:06 WBC 11.3 H RBC 3.13 L Hgb 8.4 L Hct 25.8 L MCV 82 L MCH 27 L MCHC RDW 17.7 H Plt Count Lymph % (Auto) 7.4 L [place] % (Auto) Eos % (Auto) Lymph # 0.8 L [place] # Eos # Seg Neutrophils % 83.7 H Seg Neuts % (Manual) Lymphocytes % (Manual) Monocytes % (Manual) Eosinophils % (Manual) Nucleated RBC % Seg Neutrophils # 9.5 H Seg Neutrophils # Man Lymphocytes # (Manual) Monocytes # (Manual) Eosinophils # (Manual) PT INR POC ABG pH POC ABG pCO2 POC ABG pO2 Sodium Potassium Chloride 97.9 L Carbon Dioxide BUN 43 H 29 H Creatinine 3.5 H 2.9 H Glucose POC Glucose Lactic Acid Calcium 7.5 L 8.1 L Magnesium AST ALT Alkaline Phosphatase Troponin T C-Reactive Protein Total Protein Albumin LDL Cholesterol Direct HDL Cholesterol Hepatitis C Antibody Crossmatch 11/27/17 11/28/17 11/28/17 18:11 00:16 03:50 WBC RBC Hgb Hct MCV MCH MCHC RDW Plt Count Lymph % (Auto) [place] % (Auto) Eos % (Auto) Lymph # [place] # Eos # Seg Neutrophils % Seg Neuts % (Manual) Lymphocytes % (Manual) Monocytes % (Manual) Eosinophils % (Manual) Nucleated RBC % Seg Neutrophils # Seg Neutrophils # Man Lymphocytes # (Manual) Monocytes # (Manual) Eosinophils # (Manual) PT INR POC ABG pH POC ABG pCO2 POC ABG pO2 Sodium Potassium Chloride Carbon Dioxide BUN 39 H Creatinine 4.1 H Glucose 108 H POC Glucose 110 H 124 H Lactic Acid Calcium 7.9 L Magnesium AST ALT Alkaline Phosphatase Troponin T C-Reactive Protein Total Protein Albumin LDL Cholesterol Direct HDL Cholesterol Hepatitis C Antibody Crossmatch 11/28/17 11/28/17 11/28/17 05:03 11:36 17:42 WBC RBC Hgb Hct MCV MCH MCHC RDW Plt Count Lymph % (Auto) [place] % (Auto) Eos % (Auto) Lymph # [place] # Eos # Seg Neutrophils % Seg Neuts % (Manual) Lymphocytes % (Manual) Monocytes % (Manual) Eosinophils % (Manual) Nucleated RBC % Seg Neutrophils # Seg Neutrophils # Man Lymphocytes # (Manual) Monocytes # (Manual) Eosinophils # (Manual) PT INR POC ABG pH POC ABG pCO2 POC ABG pO2 Sodium Potassium Chloride Carbon Dioxide BUN Creatinine Glucose POC Glucose 134 H 114 H 119 H Lactic Acid Calcium Magnesium AST ALT Alkaline Phosphatase Troponin T C-Reactive Protein Total Protein Albumin LDL Cholesterol Direct HDL Cholesterol Hepatitis C Antibody Crossmatch 11/29/17 11/29/17 11/29/17 00:22 05:25 05:25 WBC 12.3 H RBC 3.34 L Hgb 8.6 L Hct 27.3 L MCV 82 L MCH 26 L MCHC RDW 18.5 H Plt Count Lymph % (Auto) 3.7 L [place] % (Auto) 7.7 H Eos % (Auto) Lymph # 0.5 L [place] # 1.0 H Eos # Seg Neutrophils % 86.5 H Seg Neuts % (Manual) Lymphocytes % (Manual) Monocytes % (Manual) Eosinophils % (Manual) Nucleated RBC % Seg Neutrophils # 10.7 H Seg Neutrophils # Man Lymphocytes # (Manual) Monocytes # (Manual) Eosinophils # (Manual) PT INR POC ABG pH POC ABG pCO2 POC ABG pO2 Sodium Potassium Chloride Carbon Dioxide BUN 29 H Creatinine 3.5 H Glucose 109 H POC Glucose 137 H Lactic Acid Calcium 7.8 L Magnesium AST ALT Alkaline Phosphatase Troponin T C-Reactive Protein Total Protein Albumin LDL Cholesterol Direct HDL Cholesterol Hepatitis C Antibody Crossmatch 11/29/17 11/30/17 11/30/17 05:26 00:26 04:17 WBC RBC Hgb Hct MCV MCH MCHC RDW Plt Count Lymph % (Auto) [place] % (Auto) Eos % (Auto) Lymph # [place] # Eos # Seg Neutrophils % Seg Neuts % (Manual) Lymphocytes % (Manual) Monocytes % (Manual) Eosinophils % (Manual) Nucleated RBC % Seg Neutrophils # Seg Neutrophils # Man Lymphocytes # (Manual) Monocytes # (Manual) Eosinophils # (Manual) PT INR POC ABG pH POC ABG pCO2 POC ABG pO2 Sodium Potassium Chloride Carbon Dioxide BUN 38 H Creatinine 4.3 H Glucose 109 H POC Glucose 129 H 152 H Lactic Acid Calcium 7.8 L Magnesium AST ALT Alkaline Phosphatase Troponin T C-Reactive Protein Total Protein Albumin LDL Cholesterol Direct HDL Cholesterol Hepatitis C Antibody Crossmatch 11/30/17 11/30/17 11/30/17 12:17 16:23 23:35 WBC RBC Hgb Hct MCV MCH MCHC RDW Plt Count Lymph % (Auto) [place] % (Auto) Eos % (Auto) Lymph # [place] # Eos # Seg Neutrophils % Seg Neuts % (Manual) Lymphocytes % (Manual) Monocytes % (Manual) Eosinophils % (Manual) Nucleated RBC % Seg Neutrophils # Seg Neutrophils # Man Lymphocytes # (Manual) Monocytes # (Manual) Eosinophils # (Manual) PT INR POC ABG pH POC ABG pCO2 POC ABG pO2 Sodium Potassium Chloride Carbon Dioxide BUN Creatinine Glucose POC Glucose 170 H 114 H 122 H Lactic Acid Calcium Magnesium AST ALT Alkaline Phosphatase Troponin T C-Reactive Protein Total Protein Albumin LDL Cholesterol Direct HDL Cholesterol Hepatitis C Antibody Crossmatch 12/01/17 12/01/17 12/01/17 04:09 04:09 12:17 WBC 14.1 H RBC 3.32 L Hgb 8.6 L Hct 27.0 L MCV 81 L MCH 26 L MCHC RDW 18.7 H Plt Count Lymph % (Auto) 5.5 L [place] % (Auto) 9.7 H Eos % (Auto) Lymph # 0.8 L [place] # 1.4 H Eos # Seg Neutrophils % 82.9 H Seg Neuts % (Manual) Lymphocytes % (Manual) Monocytes % (Manual) Eosinophils % (Manual) Nucleated RBC % Seg Neutrophils # 11.7 H Seg Neutrophils # Man Lymphocytes # (Manual) Monocytes # (Manual) Eosinophils # (Manual) PT INR POC ABG pH POC ABG pCO2 POC ABG pO2 Sodium Potassium 3.4 L Chloride Carbon Dioxide BUN 21 H Creatinine 3.0 H Glucose 108 H POC Glucose 126 H Lactic Acid Calcium 8.0 L Magnesium AST ALT Alkaline Phosphatase Troponin T C-Reactive Protein Total Protein Albumin LDL Cholesterol Direct HDL Cholesterol Hepatitis C Antibody Crossmatch 12/02/17 12/03/17 12/03/17 23:46 02:52 05:54 WBC 17.2 H RBC 3.21 L Hgb 8.5 L Hct 25.8 L MCV 80 L MCH 26 L MCHC RDW 18.4 H Plt Count 128 L Lymph % (Auto) [place] % (Auto) Eos % (Auto) Lymph # [place] # Eos # Seg Neutrophils % Seg Neuts % (Manual) Lymphocytes % (Manual) Monocytes % (Manual) Eosinophils % (Manual) Nucleated RBC % Seg Neutrophils # Seg Neutrophils # Man Lymphocytes # (Manual) Monocytes # (Manual) Eosinophils # (Manual) PT INR POC ABG pH POC ABG pCO2 POC ABG pO2 Sodium Potassium Chloride Carbon Dioxide BUN Creatinine Glucose POC Glucose 125 H 107 H Lactic Acid Calcium Magnesium AST ALT Alkaline Phosphatase Troponin T C-Reactive Protein Total Protein Albumin LDL Cholesterol Direct HDL Cholesterol Hepatitis C Antibody Crossmatch 12/03/17 12/03/17 12/04/17 12:05 Unknown 12:26 WBC RBC Hgb Hct MCV MCH MCHC RDW Plt Count Lymph % (Auto) [place] % (Auto) Eos % (Auto) Lymph # [place] # Eos # Seg Neutrophils % Seg Neuts % (Manual) Lymphocytes % (Manual) Monocytes % (Manual) Eosinophils % (Manual) Nucleated RBC % Seg Neutrophils # Seg Neutrophils # Man Lymphocytes # (Manual) Monocytes # (Manual) Eosinophils # (Manual) PT INR POC ABG pH POC ABG pCO2 POC ABG pO2 Sodium Potassium Chloride Carbon Dioxide BUN 21 H Creatinine 2.8 H Glucose 113 H POC Glucose 106 H 119 H Lactic Acid Calcium Magnesium AST ALT Alkaline Phosphatase Troponin T C-Reactive Protein Total Protein Albumin LDL Cholesterol Direct HDL Cholesterol Hepatitis C Antibody Crossmatch 12/04/17 12/05/17 12/05/17 17:57 00:52 04:05 WBC RBC 2.96 L Hgb 7.7 L Hct 24.2 L MCV 82 L MCH 26 L MCHC RDW 18.8 H Plt Count 105 L Lymph % (Auto) 10.6 L [place] % (Auto) 12.1 H Eos % (Auto) 5.2 H Lymph # 1.1 L [place] # 1.3 H Eos # 0.5 H Seg Neutrophils % 71.3 H Seg Neuts % (Manual) Lymphocytes % (Manual) Monocytes % (Manual) Eosinophils % (Manual) Nucleated RBC % Seg Neutrophils # Seg Neutrophils # Man Lymphocytes # (Manual) Monocytes # (Manual) Eosinophils # (Manual) PT INR POC ABG pH POC ABG pCO2 POC ABG pO2 Sodium Potassium Chloride Carbon Dioxide BUN Creatinine Glucose POC Glucose 140 H 117 H Lactic Acid Calcium Magnesium AST ALT Alkaline Phosphatase Troponin T C-Reactive Protein Total Protein Albumin LDL Cholesterol Direct HDL Cholesterol Hepatitis C Antibody Crossmatch 12/05/17 12/05/17 12/06/17 04:05 22:50 08:18 WBC RBC 2.80 L Hgb 7.4 L Hct 23.0 L MCV 82 L MCH 27 L MCHC RDW 19.5 H Plt Count 125 L Lymph % (Auto) [place] % (Auto) Eos % (Auto) Lymph # [place] # Eos # Seg Neutrophils % Seg Neuts % (Manual) Lymphocytes % (Manual) Monocytes % (Manual) Eosinophils % (Manual) Nucleated RBC % Seg Neutrophils # Seg Neutrophils # Man Lymphocytes # (Manual) Monocytes # (Manual) Eosinophils # (Manual) PT INR POC ABG pH POC ABG pCO2 POC ABG pO2 Sodium Potassium Chloride 107.4 H Carbon Dioxide BUN Creatinine 2.5 H Glucose POC Glucose 112 H Lactic Acid Calcium 8.3 L Magnesium AST ALT Alkaline Phosphatase Troponin T C-Reactive Protein Total Protein Albumin LDL Cholesterol Direct HDL Cholesterol Hepatitis C Antibody Crossmatch 12/06/17 12/06/17 12/06/17 08:18 12:01 23:58 WBC RBC Hgb Hct MCV MCH MCHC RDW Plt Count Lymph % (Auto) [place] % (Auto) Eos % (Auto) Lymph # [place] # Eos # Seg Neutrophils % Seg Neuts % (Manual) Lymphocytes % (Manual) Monocytes % (Manual) Eosinophils % (Manual) Nucleated RBC % Seg Neutrophils # Seg Neutrophils # Man Lymphocytes # (Manual) Monocytes # (Manual) Eosinophils # (Manual) PT INR POC ABG pH POC ABG pCO2 POC ABG pO2 Sodium Potassium Chloride 108.4 H Carbon Dioxide BUN 28 H Creatinine 3.7 H Glucose 103 H POC Glucose 106 H 108 H Lactic Acid Calcium 8.0 L Magnesium AST ALT Alkaline Phosphatase Troponin T C-Reactive Protein Total Protein Albumin LDL Cholesterol Direct HDL Cholesterol Hepatitis C Antibody Crossmatch 12/07/17 12/07/17 12/07/17 05:47 05:47 18:03 WBC RBC 2.79 L Hgb 7.3 L Hct 22.8 L MCV 82 L MCH 26 L MCHC RDW 19.1 H Plt Count 101 L Lymph % (Auto) [place] % (Auto) Eos % (Auto) Lymph # [place] # Eos # Seg Neutrophils % Seg Neuts % (Manual) 72.0 H Lymphocytes % (Manual) 13.0 L Monocytes % (Manual) Eosinophils % (Manual) 9.0 H Nucleated RBC % Seg Neutrophils # Seg Neutrophils # Man Lymphocytes # (Manual) 1.1 L Monocytes # (Manual) Eosinophils # (Manual) 0.8 H PT INR POC ABG pH POC ABG pCO2 POC ABG pO2 Sodium 146 H Potassium Chloride 109.8 H Carbon Dioxide BUN 36 H Creatinine 4.0 H Glucose POC Glucose 143 H Lactic Acid Calcium 8.0 L Magnesium AST ALT Alkaline Phosphatase Troponin T C-Reactive Protein Total Protein Albumin LDL Cholesterol Direct HDL Cholesterol Hepatitis C Antibody Crossmatch 12/07/17 12/08/17 12/08/17 23:33 05:10 05:10 WBC RBC 2.91 L Hgb 7.5 L Hct 24.4 L MCV MCH 26 L MCHC 31 L RDW 19.7 H Plt Count 109 L Lymph % (Auto) [place] % (Auto) Eos % (Auto) Lymph # [place] # Eos # Seg Neutrophils % Seg Neuts % (Manual) Lymphocytes % (Manual) 11.0 L Monocytes % (Manual) Eosinophils % (Manual) 12.0 H Nucleated RBC % Seg Neutrophils # Seg Neutrophils # Man Lymphocytes # (Manual) 0.7 L Monocytes # (Manual) Eosinophils # (Manual) 0.7 H PT INR POC ABG pH POC ABG pCO2 POC ABG pO2 Sodium 147 H Potassium Chloride 110.4 H Carbon Dioxide BUN Creatinine 2.8 H Glucose POC Glucose 107 H Lactic Acid Calcium 7.8 L Magnesium AST ALT Alkaline Phosphatase Troponin T C-Reactive Protein Total Protein Albumin LDL Cholesterol Direct HDL Cholesterol Hepatitis C Antibody Crossmatch 12/09/17 12/09/17 12/09/17 04:18 04:18 12:16 WBC RBC Hgb 7.2 L Hct 23.2 L MCV MCH MCHC RDW Plt Count Lymph % (Auto) [place] % (Auto) Eos % (Auto) Lymph # [place] # Eos # Seg Neutrophils % Seg Neuts % (Manual) Lymphocytes % (Manual) Monocytes % (Manual) Eosinophils % (Manual) Nucleated RBC % Seg Neutrophils # Seg Neutrophils # Man Lymphocytes # (Manual) Monocytes # (Manual) Eosinophils # (Manual) PT INR POC ABG pH POC ABG pCO2 POC ABG pO2 Sodium 150 H Potassium Chloride 114.5 H Carbon Dioxide BUN 25 H Creatinine 3.3 H Glucose POC Glucose 142 H Lactic Acid Calcium 7.7 L Magnesium AST ALT Alkaline Phosphatase Troponin T C-Reactive Protein Total Protein Albumin LDL Cholesterol Direct HDL Cholesterol Hepatitis C Antibody Crossmatch 12/10/17 12/10/17 12/11/17 05:14 05:14 12:05 WBC RBC 2.81 L Hgb 7.4 L Hct 23.9 L MCV MCH 26 L MCHC 31 L RDW 19.1 H Plt Count 128 L Lymph % (Auto) [place] % (Auto) Eos % (Auto) Lymph # [place] # Eos # Seg Neutrophils % Seg Neuts % (Manual) 78.0 H Lymphocytes % (Manual) 8.0 L Monocytes % (Manual) Eosinophils % (Manual) 5.0 H Nucleated RBC % Seg Neutrophils # Seg Neutrophils # Man Lymphocytes # (Manual) 0.6 L Monocytes # (Manual) Eosinophils # (Manual) PT INR POC ABG pH POC ABG pCO2 POC ABG pO2 Sodium Potassium Chloride Carbon Dioxide BUN Creatinine 2.2 H Glucose POC Glucose 127 H Lactic Acid Calcium 7.8 L Magnesium AST ALT Alkaline Phosphatase Troponin T C-Reactive Protein Total Protein Albumin LDL Cholesterol Direct HDL Cholesterol Hepatitis C Antibody Crossmatch 12/11/17 12/11/17 12/11/17 15:26 18:36 23:40 WBC RBC Hgb Hct MCV MCH MCHC RDW Plt Count Lymph % (Auto) [place] % (Auto) Eos % (Auto) Lymph # [place] # Eos # Seg Neutrophils % Seg Neuts % (Manual) Lymphocytes % (Manual) Monocytes % (Manual) Eosinophils % (Manual) Nucleated RBC % Seg Neutrophils # Seg Neutrophils # Man Lymphocytes # (Manual) Monocytes # (Manual) Eosinophils # (Manual) PT INR POC ABG pH POC ABG pCO2 POC ABG pO2 Sodium Potassium 3.3 L Chloride Carbon Dioxide BUN Creatinine 1.6 H Glucose POC Glucose 106 H 110 H Lactic Acid Calcium 7.6 L Magnesium AST ALT Alkaline Phosphatase Troponin T C-Reactive Protein Total Protein Albumin LDL Cholesterol Direct HDL Cholesterol Hepatitis C Antibody Crossmatch 12/12/17 12/12/17 12/12/17 05:10 05:41 05:41 WBC RBC 3.17 L Hgb 8.1 L Hct 25.7 L MCV 81 L MCH 25 L MCHC 31 L RDW 19.2 H Plt Count Lymph % (Auto) [place] % (Auto) Eos % (Auto) Lymph # [place] # Eos # Seg Neutrophils % Seg Neuts % (Manual) 74.0 H Lymphocytes % (Manual) 6.0 L Monocytes % (Manual) Eosinophils % (Manual) 9.0 H Nucleated RBC % Seg Neutrophils # Seg Neutrophils # Man Lymphocytes # (Manual) 0.6 L Monocytes # (Manual) Eosinophils # (Manual) 0.9 H PT INR POC ABG pH POC ABG pCO2 POC ABG pO2 Sodium Potassium 3.5 L Chloride Carbon Dioxide BUN Creatinine 2.3 H Glucose 113 H POC Glucose 112 H Lactic Acid Calcium 7.5 L Magnesium AST ALT Alkaline Phosphatase Troponin T C-Reactive Protein Total Protein Albumin LDL Cholesterol Direct HDL Cholesterol Hepatitis C Antibody Crossmatch 12/13/17 12/13/17 12/13/17 06:14 12:00 17:37 WBC RBC Hgb Hct MCV MCH MCHC RDW Plt Count Lymph % (Auto) [place] % (Auto) Eos % (Auto) Lymph # [place] # Eos # Seg Neutrophils % Seg Neuts % (Manual) Lymphocytes % (Manual) Monocytes % (Manual) Eosinophils % (Manual) Nucleated RBC % Seg Neutrophils # Seg Neutrophils # Man Lymphocytes # (Manual) Monocytes # (Manual) Eosinophils # (Manual) PT INR POC ABG pH POC ABG pCO2 POC ABG pO2 Sodium Potassium Chloride Carbon Dioxide BUN Creatinine Glucose POC Glucose 130 H 133 H 136 H Lactic Acid Calcium Magnesium AST ALT Alkaline Phosphatase Troponin T C-Reactive Protein Total Protein Albumin LDL Cholesterol Direct HDL Cholesterol Hepatitis C Antibody Crossmatch 12/13/17 12/14/17 12/14/17 23:39 05:11 05:11 WBC RBC Hgb Hct MCV MCH MCHC RDW Plt Count Lymph % (Auto) [place] % (Auto) Eos % (Auto) Lymph # [place] # Eos # Seg Neutrophils % Seg Neuts % (Manual) Lymphocytes % (Manual) Monocytes % (Manual) Eosinophils % (Manual) Nucleated RBC % Seg Neutrophils # Seg Neutrophils # Man Lymphocytes # (Manual) Monocytes # (Manual) Eosinophils # (Manual) PT 15.4 H INR 1.17 H POC ABG pH POC ABG pCO2 POC ABG pO2 Sodium Potassium Chloride Carbon Dioxide 21 L BUN 26 H Creatinine 2.9 H Glucose POC Glucose 108 H Lactic Acid Calcium 7.2 L Magnesium AST ALT Alkaline Phosphatase Troponin T C-Reactive Protein Total Protein Albumin LDL Cholesterol Direct HDL Cholesterol Hepatitis C Antibody Crossmatch 12/14/17 12/14/17 12/14/17 12:00 16:01 18:24 WBC 12.9 H RBC 3.25 L Hgb 8.2 L Hct 26.2 L MCV 81 L MCH 25 L MCHC 31 L RDW 19.2 H Plt Count Lymph % (Auto) [place] % (Auto) Eos % (Auto) Lymph # [place] # Eos # Seg Neutrophils % Seg Neuts % (Manual) Lymphocytes % (Manual) Monocytes % (Manual) Eosinophils % (Manual) Nucleated RBC % Seg Neutrophils # Seg Neutrophils # Man Lymphocytes # (Manual) Monocytes # (Manual) Eosinophils # (Manual) PT INR POC ABG pH POC ABG pCO2 POC ABG pO2 Sodium Potassium Chloride Carbon Dioxide BUN Creatinine Glucose POC Glucose 138 H 120 H Lactic Acid Calcium Magnesium AST ALT Alkaline Phosphatase Troponin T C-Reactive Protein Total Protein Albumin LDL Cholesterol Direct HDL Cholesterol Hepatitis C Antibody Crossmatch 12/14/17 12/14/17 12/15/17 23:29 Unknown 05:57 WBC 12.5 H RBC 2.48 L Hgb 6.0 L Hct 24.4 L MCV 79 L MCH 24 L MCHC 30 L RDW 18.5 H Plt Count 131 L Lymph % (Auto) 7.0 L [place] % (Auto) 8.9 H Eos % (Auto) 8.3 H Lymph # 0.9 L [place] # 1.1 H Eos # 1.0 H Seg Neutrophils % 75.2 H Seg Neuts % (Manual) Lymphocytes % (Manual) Monocytes % (Manual) Eosinophils % (Manual) Nucleated RBC % Seg Neutrophils # 9.4 H Seg Neutrophils # Man Lymphocytes # (Manual) Monocytes # (Manual) Eosinophils # (Manual) PT INR POC ABG pH POC ABG pCO2 POC ABG pO2 Sodium Potassium Chloride Carbon Dioxide BUN Creatinine Glucose POC Glucose 110 H 113 H Lactic Acid Calcium Magnesium AST ALT Alkaline Phosphatase Troponin T C-Reactive Protein Total Protein Albumin LDL Cholesterol Direct HDL Cholesterol Hepatitis C Antibody Crossmatch 12/15/17 12/15/17 12/15/17 11:50 13:37 17:58 WBC RBC Hgb 7.3 L Hct 23.3 L MCV MCH MCHC RDW Plt Count Lymph % (Auto) [place] % (Auto) Eos % (Auto) Lymph # [place] # Eos # Seg Neutrophils % Seg Neuts % (Manual) Lymphocytes % (Manual) Monocytes % (Manual) Eosinophils % (Manual) Nucleated RBC % Seg Neutrophils # Seg Neutrophils # Man Lymphocytes # (Manual) Monocytes # (Manual) Eosinophils # (Manual) PT INR POC ABG pH POC ABG pCO2 POC ABG pO2 Sodium Potassium Chloride Carbon Dioxide BUN Creatinine Glucose POC Glucose 106 H 110 H Lactic Acid Calcium Magnesium AST ALT Alkaline Phosphatase Troponin T C-Reactive Protein Total Protein Albumin LDL Cholesterol Direct HDL Cholesterol Hepatitis C Antibody Crossmatch 12/15/17 12/16/17 12/16/17 23:30 04:55 05:14 WBC 13.2 H RBC 2.79 L Hgb 6.9 L Hct 22.2 L MCV 80 L MCH 25 L MCHC 31 L RDW 18.8 H Plt Count Lymph % (Auto) 7.3 L [place] % (Auto) 11.0 H Eos % (Auto) 8.2 H Lymph # 1.0 L [place] # 1.4 H Eos # 1.1 H Seg Neutrophils % 72.9 H Seg Neuts % (Manual) Lymphocytes % (Manual) Monocytes % (Manual) Eosinophils % (Manual) Nucleated RBC % Seg Neutrophils # 9.6 H Seg Neutrophils # Man Lymphocytes # (Manual) Monocytes # (Manual) Eosinophils # (Manual) PT INR POC ABG pH POC ABG pCO2 POC ABG pO2 Sodium 131 L D Potassium 2.8 L* D Chloride 93.2 L Carbon Dioxide BUN 24 H Creatinine 2.0 H Glucose POC Glucose 111 H Lactic Acid Calcium 7.7 L Magnesium AST ALT Alkaline Phosphatase Troponin T C-Reactive Protein Total Protein Albumin LDL Cholesterol Direct HDL Cholesterol Hepatitis C Antibody Crossmatch
[2017-12-17] MEDS: APRESOLINE IV PRN (04:14)
[2017-12-17 06:23] LABS: Basophils # (Auto) 0.1 K/mm3 (0.0-0.1); Basophils % (Auto) 0.9 % (0.0-1.8); Eosinophils # (Auto) 0.4 K/mm3 (0.0-0.4); Eosinophils % (Auto) 3.2 % (0.0-4.3); Hematocrit 22.6 % (35.5-45.6); Hemoglobin 7.2 gm/dl (11.8-15.2); Mean Corpuscular HGB Conc 32 % (32-34); Mean Corpuscular Volume 78 fl (84-94); Monocytes # (Auto) 1.1 K/mm3 (0.0-0.8); Monocytes % (Auto) 8.6 % (0.0-7.3); Platelet Count 184 K/mm3 (140-440); Red Blood Count 2.88 M/mm3 (3.65-5.03); Red Cell Distribution Width 18.3 % (13.2-15.2)
[2017-12-17 06:25] LABS: Mean Corpuscular Hemoglobin 25 pg (28-32)
[2017-12-17 06:50] LABS: Alanine Aminotransferase 16 units/L (7-56); BUN/Creatinine Ratio 13; Blood Urea Nitrogen 15 mg/dL (9-20); Calcium 7.6 mg/dL (8.4-10.2); Hemolysis Index 6
[2017-12-17] MEDS ORDERED: MAGNESIUM SULFATE IV ONE (08:54)
--- NOTE | 2017-12-17 08:57 | Progress Note ---
Assessment and Plan Assessment and plan: Acute Hypomagnesemia replete and recheck Severe Acute on chronic blood loss anemia transfuse PRBC bleeding precautions at all times Sepsis aspiration pneumonia -Continue IV abx Aspiration pneumonia -treated with zosyn Peritonitis - likely from dislodged peg tube - removed PEG tube on 11/22 - peritoneal Fluid positive for Enterobacter, Heather (non albicans) - Antibiotics managed by ID - s/p multiple intraabdominal drainages placed by IR and GS. Also had abdominal washout by GS - last drainage was placed on 12/06 by IR Acute on chronic respiratory failure with hypoxia - due to aspiration and PNA - Status post tracheostomy, currently on T-piece - Pulmonology following Acute encephalopathy, likely multifactorial -Will continue to monitor clinically Oropharyngeal dysphagia -Status post PEG tube placement on 11/06, now removed -On tube feeding with dobhoff -will need PEg tube before discharge History of recent CVA -Not on aspirin due to recent bleed RT ICA stenosis -s/p recent endarterectomy Disposition: Patient overall prognosis remains poor. Continue management Further pt mgt per hospital course Total Time Spent with Patient (Minutes): 30 mins History Interval history: Blood ready No family Hospitalist Physical - Constitutional Vitals: Temp Pulse Resp BP Pulse Ox 97.6 F 117 H 18 112/67 100 12/17/17 08:00 12/17/17 08:00 12/17/17 08:00 12/17/17 08:00 12/17/17 08:12 General appearance: Present: no acute distress, other (ill appearing) - EENT Eyes: Present: PERRL ENT: clear oral mucosa, other (MMM) - Neck Neck: Present: supple, other (TPC) - Respiratory Respiratory: bilateral: diminished, rhonchi, negative: rales, wheezing - Cardiovascular Rhythm: regular (TACHY) Heart Sounds: Present: S1 & S2 - Extremities Extremities: pulses intact, pulses symmetrical, normal temperature Extremity abnormal: edema - Abdominal General gastrointestinal: soft, non-distended - Integumentary Integumentary: Present: clear, warm - Psychiatric Psychiatric: other (UNABLE TO ASSESS ) - Neurologic Neurologic: other (unable to assess) - Allied Health Allied health notes reviewed: nursing, social work, case management Results - Labs CBC & Chem 7: 12/17/17 05:08 12/17/17 05:08 Labs: Laboratory Last Values WBC 12.9 K/mm3 (4.5-11.0) H 12/17/17 05:08 RBC 2.88 M/mm3 (3.65-5.03) L 12/17/17 05:08 Hgb 7.2 gm/dl (11.8-15.2) L 12/17/17 05:08 Hct 22.6 % (35.5-45.6) L 12/17/17 05:08 MCV 78 fl (84-94) L 12/17/17 05:08 MCH 25 pg (28-32) L 12/17/17 05:08 MCHC 32 % (32-34) 12/17/17 05:08 RDW 18.3 % (13.2-15.2) H 12/17/17 05:08 Plt Count 184 K/mm3 (140-440) 12/17/17 05:08 Lymph % (Auto) 8.0 % (13.4-35.0) L 12/17/17 05:08 [place] % (Auto) 8.6 % (0.0-7.3) H 12/17/17 05:08 Eos % (Auto) 3.2 % (0.0-4.3) 12/17/17 05:08 Baso % (Auto) 0.9 % (0.0-1.8) 12/17/17 05:08 Lymph # 1.0 K/mm3 (1.2-5.4) L 12/17/17 05:08 [place] # 1.1 K/mm3 (0.0-0.8) H 12/17/17 05:08 Eos # 0.4 K/mm3 (0.0-0.4) 12/17/17 05:08 Baso # 0.1 K/mm3 (0.0-0.1) 12/17/17 05:08 Add Manual Diff Complete 12/12/17 05:41 Total Counted 100 12/12/17 05:41 Seg Neutrophils % 79.3 % (40.0-70.0) H 12/17/17 05:08 Seg Neuts % (Manual) 74.0 % (40.0-70.0) H 12/12/17 05:41 Band Neutrophils % 6.0 % 12/12/17 05:41 Lymphocytes % (Manual) 6.0 % (13.4-35.0) L 12/12/17 05:41 Reactive Lymphs % (Man) 0 % 12/12/17 05:41 Monocytes % (Manual) 2.0 % (0.0-7.3) 12/12/17 05:41 Eosinophils % (Manual) 9.0 % (0.0-4.3) H 12/12/17 05:41 Basophils % (Manual) 0 % (0.0-1.8) 12/12/17 05:41 Metamyelocytes % 3.0 % 12/12/17 05:41 Myelocytes % 0 % 12/12/17 05:41 Promyelocytes % 0 % 12/12/17 05:41 Blast Cells % 0 % 12/12/17 05:41 Nucleated RBC % Not Reportable 12/12/17 05:41 Seg Neutrophils # 10.2 K/mm3 (1.8-7.7) H 12/17/17 05:08 Seg Neutrophils # Man 7.7 K/mm3 (1.8-7.7) 12/12/17 05:41 Band Neutrophils # 0.6 K/mm3 12/12/17 05:41 Lymphocytes # (Manual) 0.6 K/mm3 (1.2-5.4) L 12/12/17 05:41 Abs React Lymphs (Man) 0.0 K/mm3 12/12/17 05:41 Monocytes # (Manual) 0.2 K/mm3 (0.0-0.8) 12/12/17 05:41 Eosinophils # (Manual) 0.9 K/mm3 (0.0-0.4) H 12/12/17 05:41 Basophils # (Manual) 0.0 K/mm3 (0.0-0.1) 12/12/17 05:41 Metamyelocytes # 0.3 K/mm3 12/12/17 05:41 Myelocytes # 0.0 K/mm3 12/12/17 05:41 Promyelocytes # 0.0 K/mm3 12/12/17 05:41 Blast Cells # 0.0 K/mm3 12/12/17 05:41 WBC Morphology Not Reportable 12/12/17 05:41 Hypersegmented Neuts Not Reportable 12/12/17 05:41 Hyposegmented Neuts Not Reportable 12/12/17 05:41 Hypogranular Neuts Not Reportable 12/12/17 05:41 Smudge Cells Not Reportable 12/12/17 05:41 Toxic Granulation Not Reportable 12/12/17 05:41 Toxic Vacuolation Not Reportable 12/12/17 05:41 Dohle Bodies Not Reportable 12/12/17 05:41 Pelger-Huet Anomaly Not Reportable 12/12/17 05:41 Evangelina Rods Not Reportable 12/12/17 05:41 Platelet Estimate Consistent w auto 12/12/17 05:41 Clumped Platelets Not Reportable 12/12/17 05:41 Plt Clumps, EDTA Not Reportable 12/12/17 05:41 Large Platelets Not Reportable 12/12/17 05:41 Giant Platelets Not Reportable 12/12/17 05:41 Platelet Satelliting Not Reportable 12/12/17 05:41 Plt Morphology Comment Not Reportable 12/12/17 05:41 RBC Morphology Not Reportable 12/12/17 05:41 Dimorphic RBCs Not Reportable 12/12/17 05:41 Polychromasia 1+ 12/12/17 05:41 Hypochromasia Few 12/12/17 05:41 Poikilocytosis Not Reportable 12/12/17 05:41 Anisocytosis 1+ 12/12/17 05:41 Microcytosis Few 12/12/17 05:41 Macrocytosis Not Reportable 12/12/17 05:41 Spherocytes Not Reportable 12/12/17 05:41 Pappenheimer Bodies Not Reportable 12/12/17 05:41 Sickle Cells Not Reportable 12/12/17 05:41 Target Cells Not Reportable 12/12/17 05:41 Tear Drop Cells Not Reportable 12/12/17 05:41 Ovalocytes Not Reportable 12/12/17 05:41 Stomatocytes 1+ 12/12/17 05:41 Helmet Cells Not Reportable 12/12/17 05:41 [place] Bodies Not Reportable 12/12/17 05:41 [place] Rings Not Reportable 12/12/17 05:41 [place] Cells Not Reportable 12/12/17 05:41 Bite Cells Not Reportable 12/12/17 05:41 Crenated Cell Not Reportable 12/12/17 05:41 Elliptocytes Not Reportable 12/12/17 05:41 Acanthocytes (Spur) Not Reportable 12/12/17 05:41 Rouleaux Not Reportable 12/12/17 05:41 Hemoglobin C Crystals Not Reportable 12/12/17 05:41 Schistocytes Not Reportable 12/12/17 05:41 Malaria parasites Not Reportable 12/12/17 05:41 [place] Bodies Not Reportable 12/12/17 05:41 Hem Pathologist Commnt No 12/12/17 05:41 PT 15.4 Sec. (12.2-14.9) H 12/14/17 05:11 INR 1.17 (0.87-1.13) H 12/14/17 05:11 APTT 33.8 Sec. (24.2-36.6) 11/26/17 06:29 POC ABG pH 7.505 (7.35-7.45) H 11/23/17 04:56 POC ABG pCO2 26.3 (35-45) L 11/23/17 04:56 POC ABG pO2 100 (80-105) 11/23/17 04:56 POC ABG HCO3 20.8 11/23/17 04:56 POC ABG Total CO2 22 11/23/17 04:56 POC ABG O2 Sat 98 11/23/17 04:56 POC ABG Base Excess -2 11/23/17 04:56 FiO2 30 % 11/23/17 04:56 Sodium 137 mmol/L (137-145) 12/17/17 05:08 Potassium 3.4 mmol/L (3.6-5.0) L D 12/17/17 05:08 Chloride 99.5 mmol/L (98-107) 12/17/17 05:08 Carbon Dioxide 25 mmol/L (22-30) 12/17/17 05:08 Anion Gap 16 mmol/L 12/17/17 05:08 BUN 15 mg/dL (9-20) 12/17/17 05:08 Creatinine 1.2 mg/dL (0.8-1.5) 12/17/17 05:08 Estimated GFR > 60 ml/min 12/17/17 05:08 BUN/Creatinine Ratio 13 % 12/17/17 05:08 Glucose 104 mg/dL (75-100) H 12/17/17 05:08 POC Glucose 100 (70-105) 12/17/17 05:12 Lactic Acid 1.80 mmol/L (0.7-2.0) 11/27/17 04:06 Calcium 7.6 mg/dL (8.4-10.2) L 12/17/17 05:08 Phosphorus 2.60 mg/dL (2.5-4.5) 12/11/17 15:26 Magnesium 1.30 mg/dL (1.7-2.3) L 12/17/17 05:08 Total Bilirubin 0.30 mg/dL (0.1-1.2) 12/17/17 05:08 AST 36 units/L (5-40) 12/17/17 05:08 ALT 16 units/L (7-56) 12/17/17 05:08 Alkaline Phosphatase 177 units/L (35-129) H 12/17/17 05:08 Total Creatine Kinase 84 units/L (55-170) 11/12/17 20:03 CK-MB (CK-2) < 1.0 ng/mL (0.0-4.0) 11/12/17 20:03 CK-MB (CK-2) Rel Index 1.1 (0-4) 11/12/17 20:03 Troponin T 0.098 ng/mL (0.00-0.029) H 11/12/17 Unknown C-Reactive Protein 25.70 mg/dL (0.00-1.30) H 11/11/17 23:20 NT-Pro-B Natriuret Pep 792.4 pg/mL (0-900) 11/11/17 23:20 Total Protein 6.4 g/dL (6.3-8.2) 12/17/17 05:08 Albumin 2.0 g/dL (3.9-5) L 12/17/17 05:08 Albumin/Globulin Ratio 0.5 % 12/17/17 05:08 Triglycerides 86 mg/dL (2-149) 11/11/17 23:20 Cholesterol 82 mg/dL (50-199) 11/11/17 23:20 LDL Cholesterol Direct 42 mg/dL (50-130) L 11/11/17 23:20 HDL Cholesterol 24 mg/dL (40-59) L 11/11/17 23:20 Cholesterol/HDL Ratio 3.41 % 11/11/17 23:20 Lipase 30 units/L (13-60) 11/11/17 23:20 Urine Color Nicole (Yellow) 11/11/17 23:09 Urine Turbidity Cloudy (Clear) 11/11/17 23:09 Urine pH 5.0 (5.0-7.0) 11/11/17 23:09 Ur Specific [place] 1.025 (1.003-1.030) 11/11/17 23:09 Urine Protein 100 mg/dl mg/dL (Negative) 11/11/17 23:09 Urine Glucose (UA) 50 mg/dL (Negative) 11/11/17 23:09 Urine Ketones Neg mg/dL (Negative) 11/11/17 23:09 Urine Blood Neg (Negative) 11/11/17 23:09 Urine Nitrite Neg (Negative) 11/11/17 23:09 Urine Bilirubin Neg (Negative) 11/11/17 23:09 Urine Urobilinogen 4.0 mg/dL (<2.0) 11/11/17 23:09 Ur Leukocyte Esterase Neg (Negative) 11/11/17 23:09 Urine WBC (Auto) 5.0 /HPF (0.0-6.0) 11/11/17 23:09 Urine RBC (Auto) 4.0 /HPF (0.0-6.0) 11/11/17 23:09 Urine Bacteria (Auto) 3+ /HPF (Negative) 11/11/17 23:09 Amorphous Crystals 3+ 11/11/17 23:09 Hyaline Casts 76 /LPF 11/11/17 23:09 Urine Mucus 2+ /HPF 11/11/17 23:09 Hepatitis A IgM Ab Non-reactive (NonReactive) 11/22/17 19:45 Hep Bs Antigen Non-reactive (Negative) 11/22/17 19:45 Hep B Core IgM Ab Non-reactive (NonReactive) 11/22/17 19:45 Hepatitis C Antibody Reactive (NonReactive) A 11/22/17 19:45 Blood Type A POSITIVE 12/16/17 13:01 Antibody Screen Negative 11/24/17 08:27 SANTANA Antibody Screen Cancelled 12/16/17 13:01 Crossmatch See Detail 12/16/17 13:01 - Imaging and Cardiology Chest x-ray: report reviewed, image reviewed
[2017-12-17] MEDS: MERREM 1,000 MG in NACL 0.9% 100 ML IV SCH (09:46)
[2017-12-17] MEDS: DIFLUCAN FEEDTUBE SCH (09:47)
[2017-12-17] MEDS: PREVACID SOLUTAB FEEDTUBE SCH ×2 (09:47→21:08)
[2017-12-17] MEDS: LOPRESSOR PO SCH ×2 (09:47→21:07)
--- NOTE | 2017-12-17 10:58 | Progress Note ---
Assessment and Plan Assessment * Acute kidney injury secondary to ATN --Intermittent HD started on 11/23/17 * Sepsis secondary to peritonitis/PEG malpositioning --RUQ/LUQ drains: Enterobacter, Heather (non albicans) * Aspiration pneumonitis related to above * Anemia * Acute CVA * Carotid artery disease s/p CEA * Encephalopathy Plan: * No evidence of renal recovery * Continue HD MWF. UF as tolerated * Abx per ID * hb noted, prbcs prn * uf as tolerated with HD * IR and surgery notes reviewed * Strict I/O * Avoid potential nephrptoxins * Dose medications for renal function * Replete lytes prn * Avoid nephrotoxins Subjective Date of service: 12/17/17 Principal diagnosis: Acute hypoxic respiratory failure, s/p Trach Interval history: new consult noted, last seen 11/09 with normal renal function Objective - Exam Narrative Exam: Constitutional: lethargic, other (intubated) Eyes: non-icteric ENT: oropharynx moist, other (ETT at 24 cm) Neck: supple, no JVD Ascultation: Bilateral: rhonchi (bilateral LT >>RT) Cardiovascular: regular rate and rhythm, other (tachycardic) Gastrointestinal: normoactive bowel sounds, non-distended Integumentary: normal Extremities: no cyanosis, no edema, other (RT femoral line in place) Neurologic: unable to assess (opens eyes spontaneously but does not follow commands . ) - Vital Signs Vital signs: Vital Signs - 12hr 12/16/17 12/16/17 12/17/17 23:00 23:56 00:00 Temperature 99.0 F Pulse Rate 98 H 100 H Respiratory 31 H 21 Rate Blood Pressure 136/84 150/97 O2 Sat by Pulse 100 100 Oximetry O2 Sat by Pulse 100 Oximetry [ Assessment] 12/17/17 12/17/17 12/17/17 01:00 02:00 03:00 Temperature Pulse Rate 104 H 112 H 103 H Respiratory 36 H 36 H 32 H Rate Blood Pressure 144/81 144/81 166/89 O2 Sat by Pulse 92 96 100 Oximetry O2 Sat by Pulse Oximetry [ Assessment] 12/17/17 12/17/17 12/17/17 03:29 04:00 04:14 Temperature 99.1 F Pulse Rate 104 H 104 H Respiratory 30 H Rate Blood Pressure 178/94 178/94 O2 Sat by Pulse 99 Oximetry O2 Sat by Pulse Oximetry [ Assessment] 12/17/17 12/17/17 12/17/17 04:16 05:00 06:00 Temperature Pulse Rate 121 H 119 H Respiratory 30 H 30 H Rate Blood Pressure 122/68 112/68 O2 Sat by Pulse 97 98 Oximetry O2 Sat by Pulse 98 Oximetry [ Assessment] 12/17/17 12/17/17 12/17/17 07:00 08:00 08:12 Temperature 97.6 F Pulse Rate 119 H 117 H Respiratory 32 H 18 Rate Blood Pressure 127/71 112/67 O2 Sat by Pulse 98 100 100 Oximetry O2 Sat by Pulse 100 Oximetry [ Assessment] 12/17/17 12/17/17 12/17/17 09:00 09:47 10:00 Temperature Pulse Rate 116 H 112 H 111 H Respiratory 28 H 30 H Rate Blood Pressure 145/81 145/81 146/90 O2 Sat by Pulse 97 97 Oximetry O2 Sat by Pulse Oximetry [ Assessment] - Lab 12/17/17 05:08 12/17/17 05:08 Most recent lab results Calcium 7.6 mg/dL (8.4-10.2) L 12/17/17 05:08 Phosphorus 2.60 mg/dL (2.5-4.5) 12/11/17 15:26 Magnesium 1.30 mg/dL (1.7-2.3) L 12/17/17 05:08
[2017-12-17] MEDS ORDERED: MAGNESIUM SULFATE 2GM/50ML 2 GM/50 ML BAG IV SCH (11:00)
--- NOTE | 2017-12-17 14:13 | Progress Note ---
Assessment and Plan 67 y/o male with acute on chronic respiratory failure, now trached, with peritonitis from dislodged peg tube s/p 2 IR drains now with NGT feedings now spiking fevers again. 1. Trach Care 2. IV abx therapy per ID 3. Electrolytes per primary and renal 4. Will continue to follow along with you. Subjective Date of service: 12/17/17 Principal diagnosis: Acute hypoxic respiratory failure, s/p Trach Interval history: No acute events from a pulmonary standpoint. Objective Vital Signs - 12hr 12/17/17 12/17/17 12/17/17 03:00 03:29 04:00 Temperature 99.1 F Pulse Rate 103 H 104 H Respiratory 32 H 30 H Rate Blood Pressure 166/89 178/94 O2 Sat by Pulse 100 99 Oximetry O2 Sat by Pulse Oximetry [ Assessment] 12/17/17 12/17/17 12/17/17 04:14 04:16 05:00 Temperature Pulse Rate 104 H 121 H Respiratory 30 H Rate Blood Pressure 178/94 122/68 O2 Sat by Pulse 97 Oximetry O2 Sat by Pulse 98 Oximetry [ Assessment] 12/17/17 12/17/17 12/17/17 06:00 07:00 08:00 Temperature 97.6 F Pulse Rate 119 H 119 H 117 H Respiratory 30 H 32 H 18 Rate Blood Pressure 112/68 127/71 112/67 O2 Sat by Pulse 98 98 100 Oximetry O2 Sat by Pulse 100 Oximetry [ Assessment] 12/17/17 12/17/17 12/17/17 08:12 09:00 09:47 Temperature Pulse Rate 116 H 112 H Respiratory 28 H Rate Blood Pressure 145/81 145/81 O2 Sat by Pulse 100 97 Oximetry O2 Sat by Pulse Oximetry [ Assessment] 12/17/17 12/17/17 12/17/17 10:00 11:00 12:00 Temperature 97.9 F Pulse Rate 111 H 102 H 102 H Respiratory 30 H 32 H 20 Rate Blood Pressure 146/90 147/85 147/85 O2 Sat by Pulse 97 97 98 Oximetry O2 Sat by Pulse Oximetry [ Assessment] 12/17/17 13:00 Temperature Pulse Rate 105 H Respiratory 33 H Rate Blood Pressure 150/87 O2 Sat by Pulse 99 Oximetry O2 Sat by Pulse Oximetry [ Assessment] Constitutional: no acute distress, alert Eyes: non-icteric ENT: oropharynx moist Neck: supple (trach in position), no JVD Effort: normal Ascultation: Bilateral: clear, rhonchi (bilateral,post tussive), other (coarse BS bilaterally) Cardiovascular: regular rate and rhythm Gastrointestinal: normoactive bowel sounds, soft, non-tender, other (drainages in place) Integumentary: normal Extremities: no cyanosis, pink and warm, anasarca Neurologic: other (L hemiparesis,awake, response to my voice) Psychiatric: other (unable to assess) CBC and BMP: 12/17/17 05:08 12/17/17 05:08 ABG, PT/INR, D-dimer: ABG POC ABG pH 7.505 (7.35-7.45) H 11/23/17 04:56 POC ABG pCO2 26.3 (35-45) L 11/23/17 04:56 POC ABG pO2 100 (80-105) 11/23/17 04:56 POC ABG HCO3 20.8 11/23/17 04:56 POC ABG Total CO2 22 11/23/17 04:56 POC ABG O2 Sat 98 11/23/17 04:56 PT/INR, D-dimer PT 15.4 Sec. (12.2-14.9) H 12/14/17 05:11 INR 1.17 (0.87-1.13) H 12/14/17 05:11 Abnormal lab findings: Abnormal Labs 11/11/17 11/11/17 11/11/17 23:18 23:20 23:20 WBC RBC Hgb 10.4 L Hct 32.6 L D MCV MCH 27 L MCHC RDW 17.4 H Plt Count 105 L Lymph % (Auto) [place] % (Auto) Eos % (Auto) Lymph # [place] # Eos # Seg Neutrophils % Seg Neuts % (Manual) Lymphocytes % (Manual) 8.0 L Monocytes % (Manual) Eosinophils % (Manual) Nucleated RBC % 1.0 H Seg Neutrophils # Seg Neutrophils # Man Lymphocytes # (Manual) 0.7 L Monocytes # (Manual) Eosinophils # (Manual) PT INR POC ABG pH 7.550 H POC ABG pCO2 31.6 L POC ABG pO2 Sodium 146 H Potassium Chloride Carbon Dioxide BUN 26 H Creatinine 1.7 H D Glucose 133 H POC Glucose Lactic Acid Calcium Magnesium AST ALT Alkaline Phosphatase Troponin T 0.117 H* C-Reactive Protein Total Protein Albumin 2.5 L LDL Cholesterol Direct 42 L HDL Cholesterol 24 L Hepatitis C Antibody Crossmatch 11/11/17 11/12/17 11/12/17 23:20 00:23 00:23 WBC RBC Hgb Hct MCV MCH MCHC RDW Plt Count Lymph % (Auto) [place] % (Auto) Eos % (Auto) Lymph # [place] # Eos # Seg Neutrophils % Seg Neuts % (Manual) Lymphocytes % (Manual) Monocytes % (Manual) Eosinophils % (Manual) Nucleated RBC % Seg Neutrophils # Seg Neutrophils # Man Lymphocytes # (Manual) Monocytes # (Manual) Eosinophils # (Manual) PT 16.7 H INR 1.28 H POC ABG pH POC ABG pCO2 POC ABG pO2 Sodium Potassium Chloride Carbon Dioxide BUN Creatinine Glucose POC Glucose Lactic Acid 3.20 H* Calcium Magnesium AST ALT Alkaline Phosphatase Troponin T C-Reactive Protein 25.70 H Total Protein Albumin LDL Cholesterol Direct HDL Cholesterol Hepatitis C Antibody Crossmatch 11/12/17 11/12/17 11/12/17 00:46 01:27 01:27 WBC RBC Hgb Hct MCV MCH MCHC RDW Plt Count Lymph % (Auto) [place] % (Auto) Eos % (Auto) Lymph # [place] # Eos # Seg Neutrophils % Seg Neuts % (Manual) Lymphocytes % (Manual) Monocytes % (Manual) Eosinophils % (Manual) Nucleated RBC % Seg Neutrophils # Seg Neutrophils # Man Lymphocytes # (Manual) Monocytes # (Manual) Eosinophils # (Manual) PT INR POC ABG pH 7.495 H POC ABG pCO2 32.0 L POC ABG pO2 64 L Sodium Potassium Chloride Carbon Dioxide BUN Creatinine Glucose POC Glucose Lactic Acid 3.70 H* Calcium Magnesium AST ALT Alkaline Phosphatase Troponin T 0.096 H C-Reactive Protein Total Protein Albumin LDL Cholesterol Direct HDL Cholesterol Hepatitis C Antibody Crossmatch 11/12/17 11/12/17 11/12/17 03:21 04:50 06:27 WBC RBC Hgb Hct MCV MCH MCHC RDW Plt Count Lymph % (Auto) [place] % (Auto) Eos % (Auto) Lymph # [place] # Eos # Seg Neutrophils % Seg Neuts % (Manual) Lymphocytes % (Manual) Monocytes % (Manual) Eosinophils % (Manual) Nucleated RBC % Seg Neutrophils # Seg Neutrophils # Man Lymphocytes # (Manual) Monocytes # (Manual) Eosinophils # (Manual) PT INR POC ABG pH POC ABG pCO2 POC ABG pO2 109 H Sodium Potassium Chloride Carbon Dioxide BUN Creatinine Glucose POC Glucose Lactic Acid 3.80 H* 2.20 H* Calcium Magnesium AST ALT Alkaline Phosphatase Troponin T C-Reactive Protein Total Protein Albumin LDL Cholesterol Direct HDL Cholesterol Hepatitis C Antibody Crossmatch 11/12/17 11/12/17 11/12/17 09:24 09:24 09:24 WBC RBC Hgb 10.4 L Hct 33.4 L MCV MCH MCHC RDW Plt Count Lymph % (Auto) [place] % (Auto) Eos % (Auto) Lymph # [place] # Eos # Seg Neutrophils % Seg Neuts % (Manual) Lymphocytes % (Manual) Monocytes % (Manual) Eosinophils % (Manual) Nucleated RBC % Seg Neutrophils # Seg Neutrophils # Man Lymphocytes # (Manual) Monocytes # (Manual) Eosinophils # (Manual) PT INR POC ABG pH POC ABG pCO2 POC ABG pO2 Sodium Potassium Chloride Carbon Dioxide BUN Creatinine Glucose POC Glucose Lactic Acid 2.90 H* Calcium Magnesium AST ALT Alkaline Phosphatase Troponin T 0.091 H C-Reactive Protein Total Protein Albumin LDL Cholesterol Direct HDL Cholesterol Hepatitis C Antibody Crossmatch 11/12/17 11/12/17 11/12/17 12:56 20:03 Unknown WBC RBC Hgb Hct MCV MCH MCHC RDW Plt Count Lymph % (Auto) [place] % (Auto) Eos % (Auto) Lymph # [place] # Eos # Seg Neutrophils % Seg Neuts % (Manual) Lymphocytes % (Manual) Monocytes % (Manual) Eosinophils % (Manual) Nucleated RBC % Seg Neutrophils # Seg Neutrophils # Man Lymphocytes # (Manual) Monocytes # (Manual) Eosinophils # (Manual) PT INR POC ABG pH POC ABG pCO2 POC ABG pO2 Sodium Potassium Chloride Carbon Dioxide BUN Creatinine Glucose POC Glucose Lactic Acid 3.60 H* Calcium Magnesium AST ALT Alkaline Phosphatase Troponin T 0.102 H* 0.156 H* D C-Reactive Protein Total Protein Albumin LDL Cholesterol Direct HDL Cholesterol Hepatitis C Antibody Crossmatch 11/12/17 11/13/17 11/13/17 Unknown 04:50 04:50 WBC 12.2 H RBC 3.51 L Hgb 9.3 L Hct 30.1 L MCV MCH 26 L MCHC 31 L RDW 18.0 H Plt Count 128 L Lymph % (Auto) 8.6 L [place] % (Auto) 11.1 H Eos % (Auto) Lymph # 1.1 L [place] # 1.4 H Eos # Seg Neutrophils % 80.1 H Seg Neuts % (Manual) Lymphocytes % (Manual) Monocytes % (Manual) Eosinophils % (Manual) Nucleated RBC % Seg Neutrophils # 9.8 H Seg Neutrophils # Man Lymphocytes # (Manual) Monocytes # (Manual) Eosinophils # (Manual) PT INR POC ABG pH POC ABG pCO2 POC ABG pO2 Sodium 149 H Potassium 5.1 H Chloride 114.4 H Carbon Dioxide 18 L BUN 52 H Creatinine 3.3 H D Glucose 129 H POC Glucose Lactic Acid Calcium 7.9 L Magnesium AST ALT Alkaline Phosphatase Troponin T 0.098 H C-Reactive Protein Total Protein Albumin LDL Cholesterol Direct HDL Cholesterol Hepatitis C Antibody Crossmatch 11/13/17 11/13/17 11/14/17 04:51 09:34 04:21 WBC RBC Hgb Hct MCV MCH MCHC RDW Plt Count Lymph % (Auto) [place] % (Auto) Eos % (Auto) Lymph # [place] # Eos # Seg Neutrophils % Seg Neuts % (Manual) Lymphocytes % (Manual) Monocytes % (Manual) Eosinophils % (Manual) Nucleated RBC % Seg Neutrophils # Seg Neutrophils # Man Lymphocytes # (Manual) Monocytes # (Manual) Eosinophils # (Manual) PT INR POC ABG pH POC ABG pCO2 30.1 L 29.8 L POC ABG pO2 135 H Sodium Potassium Chloride Carbon Dioxide BUN Creatinine Glucose POC Glucose Lactic Acid 2.10 H* Calcium Magnesium AST ALT Alkaline Phosphatase Troponin T C-Reactive Protein Total Protein Albumin LDL Cholesterol Direct HDL Cholesterol Hepatitis C Antibody Crossmatch 11/15/17 11/15/17 11/16/17 04:52 15:50 05:17 WBC RBC Hgb Hct MCV MCH MCHC RDW Plt Count Lymph % (Auto) [place] % (Auto) Eos % (Auto) Lymph # [place] # Eos # Seg Neutrophils % Seg Neuts % (Manual) Lymphocytes % (Manual) Monocytes % (Manual) Eosinophils % (Manual) Nucleated RBC % Seg Neutrophils # Seg Neutrophils # Man Lymphocytes # (Manual) Monocytes # (Manual) Eosinophils # (Manual) PT INR POC ABG pH POC ABG pCO2 29.5 L 31.5 L POC ABG pO2 115 H 122 H Sodium 154 H Potassium Chloride 117.9 H Carbon Dioxide 19 L BUN 87 H Creatinine 4.1 H Glucose POC Glucose Lactic Acid Calcium 8.1 L Magnesium AST ALT Alkaline Phosphatase Troponin T C-Reactive Protein Total Protein Albumin LDL Cholesterol Direct HDL Cholesterol Hepatitis C Antibody Crossmatch 11/16/17 11/17/17 11/17/17 16:37 04:07 10:00 WBC 14.7 H RBC 3.23 L Hgb 8.3 L Hct 28.1 L MCV MCH 26 L MCHC 30 L RDW 18.8 H Plt Count Lymph % (Auto) [place] % (Auto) Eos % (Auto) Lymph # [place] # Eos # Seg Neutrophils % Seg Neuts % (Manual) 75 H Lymphocytes % (Manual) 8.0 L Monocytes % (Manual) Eosinophils % (Manual) Nucleated RBC % 1.0 H Seg Neutrophils # Seg Neutrophils # Man 11.0 H Lymphocytes # (Manual) Monocytes # (Manual) 0.9 H Eosinophils # (Manual) PT INR POC ABG pH POC ABG pCO2 POC ABG pO2 Sodium 153 H 155 H Potassium Chloride 117.3 H 119.4 H Carbon Dioxide 19 L 20 L BUN 90 H 89 H Creatinine 3.9 H 3.6 H Glucose 111 H 115 H POC Glucose Lactic Acid Calcium 8.1 L 8.0 L Magnesium AST ALT Alkaline Phosphatase Troponin T C-Reactive Protein Total Protein Albumin LDL Cholesterol Direct HDL Cholesterol Hepatitis C Antibody Crossmatch 11/18/17 11/18/17 11/18/17 04:34 04:34 04:34 WBC 15.5 H RBC 3.13 L Hgb 8.1 L Hct 26.3 L MCV MCH 26 L MCHC 31 L RDW 18.6 H Plt Count Lymph % (Auto) [place] % (Auto) Eos % (Auto) Lymph # [place] # Eos # Seg Neutrophils % Seg Neuts % (Manual) 81.0 H Lymphocytes % (Manual) 7.0 L Monocytes % (Manual) Eosinophils % (Manual) Nucleated RBC % 1.0 H Seg Neutrophils # Seg Neutrophils # Man 12.6 H Lymphocytes # (Manual) 1.1 L Monocytes # (Manual) Eosinophils # (Manual) PT 16.7 H INR 1.30 H POC ABG pH POC ABG pCO2 POC ABG pO2 Sodium 155 H Potassium 3.2 L Chloride 121.0 H Carbon Dioxide 20 L BUN 74 H Creatinine 2.9 H Glucose 126 H POC Glucose Lactic Acid Calcium 7.9 L Magnesium AST ALT Alkaline Phosphatase Troponin T C-Reactive Protein Total Protein Albumin LDL Cholesterol Direct HDL Cholesterol Hepatitis C Antibody Crossmatch 0811/19/17 11/20/17 04:44 04:44 00:38 WBC 19.0 H 22.2 H RBC 3.20 L 3.17 L Hgb 8.4 L 7.9 L Hct 27.9 L 26.4 L MCV 83 L MCH 26 L 25 L MCHC 30 L 30 L RDW 19.1 H 18.9 H Plt Count Lymph % (Auto) [place] % (Auto) Eos % (Auto) Lymph # [place] # Eos # Seg Neutrophils % Seg Neuts % (Manual) 83.0 H Lymphocytes % (Manual) 3.0 L Monocytes % (Manual) 9.0 H Eosinophils % (Manual) Nucleated RBC % Seg Neutrophils # Seg Neutrophils # Man 18.4 H Lymphocytes # (Manual) 0.7 L Monocytes # (Manual) 2.0 H Eosinophils # (Manual) PT INR POC ABG pH POC ABG pCO2 POC ABG pO2 Sodium 152 H Potassium Chloride 117.1 H Carbon Dioxide 17 L BUN 66 H Creatinine 2.8 H Glucose 119 H POC Glucose Lactic Acid Calcium 7.8 L Magnesium 2.70 H AST ALT Alkaline Phosphatase Troponin T C-Reactive Protein Total Protein Albumin LDL Cholesterol Direct HDL Cholesterol Hepatitis C Antibody Crossmatch 11/20/17 11/20/17 11/20/17 03:29 04:48 13:38 WBC RBC Hgb Hct MCV MCH MCHC RDW Plt Count Lymph % (Auto) [place] % (Auto) Eos % (Auto) Lymph # [place] # Eos # Seg Neutrophils % Seg Neuts % (Manual) Lymphocytes % (Manual) Monocytes % (Manual) Eosinophils % (Manual) Nucleated RBC % Seg Neutrophils # Seg Neutrophils # Man Lymphocytes # (Manual) Monocytes # (Manual) Eosinophils # (Manual) PT INR POC ABG pH POC ABG pCO2 29.4 L POC ABG pO2 Sodium 148 H Potassium 3.4 L Chloride 113.7 H Carbon Dioxide 18 L BUN 59 H Creatinine 2.7 H Glucose 113 H POC Glucose 128 H Lactic Acid Calcium 7.8 L Magnesium AST ALT Alkaline Phosphatase Troponin T C-Reactive Protein Total Protein Albumin LDL Cholesterol Direct HDL Cholesterol Hepatitis C Antibody Crossmatch 11/20/17 11/20/17 11/21/17 17:38 23:40 00:13 WBC RBC Hgb 8.4 L Hct 28.0 L MCV MCH MCHC RDW Plt Count Lymph % (Auto) [place] % (Auto) Eos % (Auto) Lymph # [place] # Eos # Seg Neutrophils % Seg Neuts % (Manual) Lymphocytes % (Manual) Monocytes % (Manual) Eosinophils % (Manual) Nucleated RBC % Seg Neutrophils # Seg Neutrophils # Man Lymphocytes # (Manual) Monocytes # (Manual) Eosinophils # (Manual) PT INR POC ABG pH POC ABG pCO2 POC ABG pO2 Sodium Potassium Chloride Carbon Dioxide BUN Creatinine Glucose POC Glucose 115 H 145 H Lactic Acid Calcium Magnesium AST ALT Alkaline Phosphatase Troponin T C-Reactive Protein Total Protein Albumin LDL Cholesterol Direct HDL Cholesterol Hepatitis C Antibody Crossmatch 11/21/17 11/21/17 11/21/17 04:30 04:30 04:58 WBC 21.0 H RBC Hgb 9.6 L Hct 32.7 L MCV MCH 25 L MCHC 29 L RDW 19.7 H Plt Count 746 H Lymph % (Auto) [place] % (Auto) Eos % (Auto) Lymph # [place] # Eos # Seg Neutrophils % Seg Neuts % (Manual) Lymphocytes % (Manual) Monocytes % (Manual) Eosinophils % (Manual) Nucleated RBC % Seg Neutrophils # Seg Neutrophils # Man Lymphocytes # (Manual) Monocytes # (Manual) Eosinophils # (Manual) PT INR POC ABG pH POC ABG pCO2 POC ABG pO2 Sodium Potassium Chloride 109.4 H Carbon Dioxide 14 L BUN 59 H Creatinine 3.0 H Glucose 137 H POC Glucose 132 H Lactic Acid Calcium 7.6 L Magnesium AST ALT Alkaline Phosphatase Troponin T C-Reactive Protein Total Protein Albumin LDL Cholesterol Direct HDL Cholesterol Hepatitis C Antibody Crossmatch 11/21/17 11/21/17 11/21/17 06:30 13:43 14:17 WBC 38.2 H RBC Hgb 9.0 L Hct 32.3 L MCV MCH 25 L MCHC 28 L RDW 20.0 H Plt Count 766 H Lymph % (Auto) [place] % (Auto) Eos % (Auto) Lymph # [place] # Eos # Seg Neutrophils % Seg Neuts % (Manual) 85.0 H Lymphocytes % (Manual) 1.0 L Monocytes % (Manual) Eosinophils % (Manual) Nucleated RBC % 2.0 H Seg Neutrophils # Seg Neutrophils # Man 32.5 H Lymphocytes # (Manual) 0.4 L Monocytes # (Manual) 2.3 H Eosinophils # (Manual) PT INR POC ABG pH POC ABG pCO2 18.6 L POC ABG pO2 121 H Sodium 146 H Potassium Chloride 110.9 H Carbon Dioxide 11 L BUN 62 H Creatinine 4.0 H Glucose 64 L POC Glucose Lactic Acid Calcium 7.6 L Magnesium AST ALT Alkaline Phosphatase Troponin T C-Reactive Protein Total Protein Albumin LDL Cholesterol Direct HDL Cholesterol Hepatitis C Antibody Crossmatch 11/21/17 11/21/17 11/22/17 14:17 19:09 00:05 WBC RBC Hgb Hct MCV MCH MCHC RDW Plt Count Lymph % (Auto) [place] % (Auto) Eos % (Auto) Lymph # [place] # Eos # Seg Neutrophils % Seg Neuts % (Manual) Lymphocytes % (Manual) Monocytes % (Manual) Eosinophils % (Manual) Nucleated RBC % Seg Neutrophils # Seg Neutrophils # Man Lymphocytes # (Manual) Monocytes # (Manual) Eosinophils # (Manual) PT INR POC ABG pH POC ABG pCO2 20.0 L POC ABG pO2 Sodium Potassium Chloride Carbon Dioxide BUN Creatinine Glucose POC Glucose 127 H Lactic Acid 7.70 H* Calcium Magnesium AST ALT Alkaline Phosphatase Troponin T C-Reactive Protein Total Protein Albumin LDL Cholesterol Direct HDL Cholesterol Hepatitis C Antibody Crossmatch 11/22/17 11/22/17 11/22/17 03:53 06:00 07:25 WBC RBC Hgb Hct MCV MCH MCHC RDW Plt Count Lymph % (Auto) [place] % (Auto) Eos % (Auto) Lymph # [place] # Eos # Seg Neutrophils % Seg Neuts % (Manual) Lymphocytes % (Manual) Monocytes % (Manual) Eosinophils % (Manual) Nucleated RBC % Seg Neutrophils # Seg Neutrophils # Man Lymphocytes # (Manual) Monocytes # (Manual) Eosinophils # (Manual) PT INR POC ABG pH POC ABG pCO2 22.2 L POC ABG pO2 Sodium 147 H Potassium Chloride 111.9 H Carbon Dioxide 16 L BUN 72 H Creatinine 5.1 H Glucose 181 H POC Glucose 180 H Lactic Acid Calcium 7.1 L Magnesium AST ALT Alkaline Phosphatase Troponin T C-Reactive Protein Total Protein Albumin LDL Cholesterol Direct HDL Cholesterol Hepatitis C Antibody Crossmatch 11/22/17 11/22/17 11/22/17 07:25 07:25 12:05 WBC 31.4 H RBC 3.22 L Hgb 8.0 L Hct 26.7 L MCV 83 L MCH 25 L MCHC 30 L RDW 19.4 H Plt Count 602 H Lymph % (Auto) [place] % (Auto) Eos % (Auto) Lymph # [place] # Eos # Seg Neutrophils % Seg Neuts % (Manual) Lymphocytes % (Manual) Monocytes % (Manual) Eosinophils % (Manual) Nucleated RBC % Seg Neutrophils # Seg Neutrophils # Man Lymphocytes # (Manual) Monocytes # (Manual) Eosinophils # (Manual) PT INR POC ABG pH POC ABG pCO2 POC ABG pO2 Sodium Potassium Chloride Carbon Dioxide BUN Creatinine Glucose POC Glucose 182 H Lactic Acid 5.00 H* Calcium Magnesium AST ALT Alkaline Phosphatase Troponin T C-Reactive Protein Total Protein Albumin LDL Cholesterol Direct HDL Cholesterol Hepatitis C Antibody Crossmatch 11/22/17 11/23/17 11/23/17 19:45 01:28 04:56 WBC RBC Hgb Hct MCV MCH MCHC RDW Plt Count Lymph % (Auto) [place] % (Auto) Eos % (Auto) Lymph # [place] # Eos # Seg Neutrophils % Seg Neuts % (Manual) Lymphocytes % (Manual) Monocytes % (Manual) Eosinophils % (Manual) Nucleated RBC % Seg Neutrophils # Seg Neutrophils # Man Lymphocytes # (Manual) Monocytes # (Manual) Eosinophils # (Manual) PT INR POC ABG pH 7.505 H POC ABG pCO2 26.3 L POC ABG pO2 Sodium Potassium Chloride Carbon Dioxide BUN Creatinine Glucose POC Glucose 165 H Lactic Acid Calcium Magnesium AST ALT Alkaline Phosphatase Troponin T C-Reactive Protein Total Protein Albumin LDL Cholesterol Direct HDL Cholesterol Hepatitis C Antibody Reactive A Crossmatch 11/23/17 11/23/17 11/23/17 07:05 12:32 17:53 WBC RBC Hgb Hct MCV MCH MCHC RDW Plt Count Lymph % (Auto) [place] % (Auto) Eos % (Auto) Lymph # [place] # Eos # Seg Neutrophils % Seg Neuts % (Manual) Lymphocytes % (Manual) Monocytes % (Manual) Eosinophils % (Manual) Nucleated RBC % Seg Neutrophils # Seg Neutrophils # Man Lymphocytes # (Manual) Monocytes # (Manual) Eosinophils # (Manual) PT INR POC ABG pH POC ABG pCO2 POC ABG pO2 Sodium Potassium Chloride Carbon Dioxide 18 L BUN 61 H Creatinine 4.2 H Glucose 153 H POC Glucose 138 H 173 H Lactic Acid Calcium 7.5 L Magnesium AST ALT Alkaline Phosphatase Troponin T C-Reactive Protein Total Protein Albumin LDL Cholesterol Direct HDL Cholesterol Hepatitis C Antibody Crossmatch 11/23/17 11/24/17 11/24/17 23:41 05:42 05:42 WBC 21.5 H RBC 2.48 L Hgb 6.2 L Hct 20.3 L D MCV 82 L MCH 25 L MCHC 31 L RDW 18.9 H Plt Count Lymph % (Auto) [place] % (Auto) Eos % (Auto) Lymph # [place] # Eos # Seg Neutrophils % Seg Neuts % (Manual) 94.0 H Lymphocytes % (Manual) 3.0 L Monocytes % (Manual) Eosinophils % (Manual) Nucleated RBC % Seg Neutrophils # Seg Neutrophils # Man 20.2 H Lymphocytes # (Manual) 0.6 L Monocytes # (Manual) Eosinophils # (Manual) PT INR POC ABG pH POC ABG pCO2 POC ABG pO2 Sodium 149 H Potassium 2.8 L* D Chloride 113.9 H Carbon Dioxide 19 L BUN 31 H Creatinine 2.3 H Glucose 103 H POC Glucose 133 H Lactic Acid Calcium 5.3 L* D Magnesium 1.30 L AST ALT Alkaline Phosphatase Troponin T C-Reactive Protein Total Protein Albumin LDL Cholesterol Direct HDL Cholesterol Hepatitis C Antibody Crossmatch 11/24/17 11/24/17 11/24/17 05:42 08:27 08:27 WBC RBC Hgb Hct MCV MCH MCHC RDW Plt Count Lymph % (Auto) [place] % (Auto) Eos % (Auto) Lymph # [place] # Eos # Seg Neutrophils % Seg Neuts % (Manual) Lymphocytes % (Manual) Monocytes % (Manual) Eosinophils % (Manual) Nucleated RBC % Seg Neutrophils # Seg Neutrophils # Man Lymphocytes # (Manual) Monocytes # (Manual) Eosinophils # (Manual) PT INR POC ABG pH POC ABG pCO2 POC ABG pO2 Sodium Potassium Chloride Carbon Dioxide BUN Creatinine Glucose POC Glucose Lactic Acid 5.40 H* 5.20 H* Calcium Magnesium AST ALT Alkaline Phosphatase Troponin T C-Reactive Protein Total Protein Albumin LDL Cholesterol Direct HDL Cholesterol Hepatitis C Antibody Crossmatch See Detail 11/24/17 11/24/17 11/24/17 12:13 17:22 21:53 WBC 23.0 H RBC 3.32 L Hgb 8.8 L Hct 27.1 L D MCV 82 L MCH 26 L MCHC RDW 17.3 H Plt Count Lymph % (Auto) [place] % (Auto) Eos % (Auto) Lymph # [place] # Eos # Seg Neutrophils % Seg Neuts % (Manual) Lymphocytes % (Manual) Monocytes % (Manual) Eosinophils % (Manual) Nucleated RBC % Seg Neutrophils # Seg Neutrophils # Man Lymphocytes # (Manual) Monocytes # (Manual) Eosinophils # (Manual) PT INR POC ABG pH POC ABG pCO2 POC ABG pO2 Sodium Potassium Chloride Carbon Dioxide BUN Creatinine Glucose POC Glucose 138 H 180 H Lactic Acid Calcium Magnesium AST ALT Alkaline Phosphatase Troponin T C-Reactive Protein Total Protein Albumin LDL Cholesterol Direct HDL Cholesterol Hepatitis C Antibody Crossmatch 11/24/17 11/24/17 11/25/17 21:53 23:28 04:19 WBC RBC Hgb Hct MCV MCH MCHC RDW Plt Count Lymph % (Auto) [place] % (Auto) Eos % (Auto) Lymph # [place] # Eos # Seg Neutrophils % Seg Neuts % (Manual) Lymphocytes % (Manual) Monocytes % (Manual) Eosinophils % (Manual) Nucleated RBC % Seg Neutrophils # Seg Neutrophils # Man Lymphocytes # (Manual) Monocytes # (Manual) Eosinophils # (Manual) PT INR POC ABG pH POC ABG pCO2 POC ABG pO2 Sodium Potassium Chloride 96.3 L Carbon Dioxide BUN 28 H 31 H Creatinine 2.3 H 2.6 H Glucose 125 H 101 H POC Glucose 111 H Lactic Acid Calcium 7.5 L D 7.4 L Magnesium AST 170 H ALT 179 H Alkaline Phosphatase 175 H Troponin T C-Reactive Protein Total Protein 5.5 L Albumin 1.8 L LDL Cholesterol Direct HDL Cholesterol Hepatitis C Antibody Crossmatch 11/25/17 11/25/17 11/26/17 04:19 04:19 06:29 WBC 22.5 H RBC 3.48 L Hgb 9.1 L Hct 28.3 L MCV 81 L MCH 26 L MCHC RDW 17.4 H Plt Count Lymph % (Auto) [place] % (Auto) Eos % (Auto) Lymph # [place] # Eos # Seg Neutrophils % Seg Neuts % (Manual) Lymphocytes % (Manual) Monocytes % (Manual) Eosinophils % (Manual) Nucleated RBC % Seg Neutrophils # Seg Neutrophils # Man Lymphocytes # (Manual) Monocytes # (Manual) Eosinophils # (Manual) PT 23.6 H INR 1.96 H POC ABG pH POC ABG pCO2 POC ABG pO2 Sodium Potassium Chloride Carbon Dioxide BUN 31 H Creatinine 2.6 H Glucose 101 H POC Glucose Lactic Acid Calcium 7.5 L Magnesium AST ALT Alkaline Phosphatase Troponin T C-Reactive Protein Total Protein Albumin LDL Cholesterol Direct HDL Cholesterol Hepatitis C Antibody Crossmatch 11/26/17 11/27/17 11/27/17 06:34 04:06 04:06 WBC 11.3 H RBC 3.13 L Hgb 8.4 L Hct 25.8 L MCV 82 L MCH 27 L MCHC RDW 17.7 H Plt Count Lymph % (Auto) 7.4 L [place] % (Auto) Eos % (Auto) Lymph # 0.8 L [place] # Eos # Seg Neutrophils % 83.7 H Seg Neuts % (Manual) Lymphocytes % (Manual) Monocytes % (Manual) Eosinophils % (Manual) Nucleated RBC % Seg Neutrophils # 9.5 H Seg Neutrophils # Man Lymphocytes # (Manual) Monocytes # (Manual) Eosinophils # (Manual) PT INR POC ABG pH POC ABG pCO2 POC ABG pO2 Sodium Potassium Chloride 97.9 L Carbon Dioxide BUN 43 H 29 H Creatinine 3.5 H 2.9 H Glucose POC Glucose Lactic Acid Calcium 7.5 L 8.1 L Magnesium AST ALT Alkaline Phosphatase Troponin T C-Reactive Protein Total Protein Albumin LDL Cholesterol Direct HDL Cholesterol Hepatitis C Antibody Crossmatch 11/27/17 11/28/17 11/28/17 18:11 00:16 03:50 WBC RBC Hgb Hct MCV MCH MCHC RDW Plt Count Lymph % (Auto) [place] % (Auto) Eos % (Auto) Lymph # [place] # Eos # Seg Neutrophils % Seg Neuts % (Manual) Lymphocytes % (Manual) Monocytes % (Manual) Eosinophils % (Manual) Nucleated RBC % Seg Neutrophils # Seg Neutrophils # Man Lymphocytes # (Manual) Monocytes # (Manual) Eosinophils # (Manual) PT INR POC ABG pH POC ABG pCO2 POC ABG pO2 Sodium Potassium Chloride Carbon Dioxide BUN 39 H Creatinine 4.1 H Glucose 108 H POC Glucose 110 H 124 H Lactic Acid Calcium 7.9 L Magnesium AST ALT Alkaline Phosphatase Troponin T C-Reactive Protein Total Protein Albumin LDL Cholesterol Direct HDL Cholesterol Hepatitis C Antibody Crossmatch 11/28/17 11/28/17 11/28/17 05:03 11:36 17:42 WBC RBC Hgb Hct MCV MCH MCHC RDW Plt Count Lymph % (Auto) [place] % (Auto) Eos % (Auto) Lymph # [place] # Eos # Seg Neutrophils % Seg Neuts % (Manual) Lymphocytes % (Manual) Monocytes % (Manual) Eosinophils % (Manual) Nucleated RBC % Seg Neutrophils # Seg Neutrophils # Man Lymphocytes # (Manual) Monocytes # (Manual) Eosinophils # (Manual) PT INR POC ABG pH POC ABG pCO2 POC ABG pO2 Sodium Potassium Chloride Carbon Dioxide BUN Creatinine Glucose POC Glucose 134 H 114 H 119 H Lactic Acid Calcium Magnesium AST ALT Alkaline Phosphatase Troponin T C-Reactive Protein Total Protein Albumin LDL Cholesterol Direct HDL Cholesterol Hepatitis C Antibody Crossmatch 11/29/17 11/29/17 11/29/17 00:22 05:25 05:25 WBC 12.3 H RBC 3.34 L Hgb 8.6 L Hct 27.3 L MCV 82 L MCH 26 L MCHC RDW 18.5 H Plt Count Lymph % (Auto) 3.7 L [place] % (Auto) 7.7 H Eos % (Auto) Lymph # 0.5 L [place] # 1.0 H Eos # Seg Neutrophils % 86.5 H Seg Neuts % (Manual) Lymphocytes % (Manual) Monocytes % (Manual) Eosinophils % (Manual) Nucleated RBC % Seg Neutrophils # 10.7 H Seg Neutrophils # Man Lymphocytes # (Manual) Monocytes # (Manual) Eosinophils # (Manual) PT INR POC ABG pH POC ABG pCO2 POC ABG pO2 Sodium Potassium Chloride Carbon Dioxide BUN 29 H Creatinine 3.5 H Glucose 109 H POC Glucose 137 H Lactic Acid Calcium 7.8 L Magnesium AST ALT Alkaline Phosphatase Troponin T C-Reactive Protein Total Protein Albumin LDL Cholesterol Direct HDL Cholesterol Hepatitis C Antibody Crossmatch 11/29/17 11/30/17 11/30/17 05:26 00:26 04:17 WBC RBC Hgb Hct MCV MCH MCHC RDW Plt Count Lymph % (Auto) [place] % (Auto) Eos % (Auto) Lymph # [place] # Eos # Seg Neutrophils % Seg Neuts % (Manual) Lymphocytes % (Manual) Monocytes % (Manual) Eosinophils % (Manual) Nucleated RBC % Seg Neutrophils # Seg Neutrophils # Man Lymphocytes # (Manual) Monocytes # (Manual) Eosinophils # (Manual) PT INR POC ABG pH POC ABG pCO2 POC ABG pO2 Sodium Potassium Chloride Carbon Dioxide BUN 38 H Creatinine 4.3 H Glucose 109 H POC Glucose 129 H 152 H Lactic Acid Calcium 7.8 L Magnesium AST ALT Alkaline Phosphatase Troponin T C-Reactive Protein Total Protein Albumin LDL Cholesterol Direct HDL Cholesterol Hepatitis C Antibody Crossmatch 11/30/17 11/30/17 11/30/17 12:17 16:23 23:35 WBC RBC Hgb Hct MCV MCH MCHC RDW Plt Count Lymph % (Auto) [place] % (Auto) Eos % (Auto) Lymph # [place] # Eos # Seg Neutrophils % Seg Neuts % (Manual) Lymphocytes % (Manual) Monocytes % (Manual) Eosinophils % (Manual) Nucleated RBC % Seg Neutrophils # Seg Neutrophils # Man Lymphocytes # (Manual) Monocytes # (Manual) Eosinophils # (Manual) PT INR POC ABG pH POC ABG pCO2 POC ABG pO2 Sodium Potassium Chloride Carbon Dioxide BUN Creatinine Glucose POC Glucose 170 H 114 H 122 H Lactic Acid Calcium Magnesium AST ALT Alkaline Phosphatase Troponin T C-Reactive Protein Total Protein Albumin LDL Cholesterol Direct HDL Cholesterol Hepatitis C Antibody Crossmatch 12/01/17 12/01/17 12/01/17 04:09 04:09 12:17 WBC 14.1 H RBC 3.32 L Hgb 8.6 L Hct 27.0 L MCV 81 L MCH 26 L MCHC RDW 18.7 H Plt Count Lymph % (Auto) 5.5 L [place] % (Auto) 9.7 H Eos % (Auto) Lymph # 0.8 L [place] # 1.4 H Eos # Seg Neutrophils % 82.9 H Seg Neuts % (Manual) Lymphocytes % (Manual) Monocytes % (Manual) Eosinophils % (Manual) Nucleated RBC % Seg Neutrophils # 11.7 H Seg Neutrophils # Man Lymphocytes # (Manual) Monocytes # (Manual) Eosinophils # (Manual) PT INR POC ABG pH POC ABG pCO2 POC ABG pO2 Sodium Potassium 3.4 L Chloride Carbon Dioxide BUN 21 H Creatinine 3.0 H Glucose 108 H POC Glucose 126 H Lactic Acid Calcium 8.0 L Magnesium AST ALT Alkaline Phosphatase Troponin T C-Reactive Protein Total Protein Albumin LDL Cholesterol Direct HDL Cholesterol Hepatitis C Antibody Crossmatch 12/02/17 12/03/17 12/03/17 23:46 02:52 05:54 WBC 17.2 H RBC 3.21 L Hgb 8.5 L Hct 25.8 L MCV 80 L MCH 26 L MCHC RDW 18.4 H Plt Count 128 L Lymph % (Auto) [place] % (Auto) Eos % (Auto) Lymph # [place] # Eos # Seg Neutrophils % Seg Neuts % (Manual) Lymphocytes % (Manual) Monocytes % (Manual) Eosinophils % (Manual) Nucleated RBC % Seg Neutrophils # Seg Neutrophils # Man Lymphocytes # (Manual) Monocytes # (Manual) Eosinophils # (Manual) PT INR POC ABG pH POC ABG pCO2 POC ABG pO2 Sodium Potassium Chloride Carbon Dioxide BUN Creatinine Glucose POC Glucose 125 H 107 H Lactic Acid Calcium Magnesium AST ALT Alkaline Phosphatase Troponin T C-Reactive Protein Total Protein Albumin LDL Cholesterol Direct HDL Cholesterol Hepatitis C Antibody Crossmatch 12/03/17 12/03/17 12/04/17 12:05 Unknown 12:26 WBC RBC Hgb Hct MCV MCH MCHC RDW Plt Count Lymph % (Auto) [place] % (Auto) Eos % (Auto) Lymph # [place] # Eos # Seg Neutrophils % Seg Neuts % (Manual) Lymphocytes % (Manual) Monocytes % (Manual) Eosinophils % (Manual) Nucleated RBC % Seg Neutrophils # Seg Neutrophils # Man Lymphocytes # (Manual) Monocytes # (Manual) Eosinophils # (Manual) PT INR POC ABG pH POC ABG pCO2 POC ABG pO2 Sodium Potassium Chloride Carbon Dioxide BUN 21 H Creatinine 2.8 H Glucose 113 H POC Glucose 106 H 119 H Lactic Acid Calcium Magnesium AST ALT Alkaline Phosphatase Troponin T C-Reactive Protein Total Protein Albumin LDL Cholesterol Direct HDL Cholesterol Hepatitis C Antibody Crossmatch 12/04/17 12/05/17 12/05/17 17:57 00:52 04:05 WBC RBC 2.96 L Hgb 7.7 L Hct 24.2 L MCV 82 L MCH 26 L MCHC RDW 18.8 H Plt Count 105 L Lymph % (Auto) 10.6 L [place] % (Auto) 12.1 H Eos % (Auto) 5.2 H Lymph # 1.1 L [place] # 1.3 H Eos # 0.5 H Seg Neutrophils % 71.3 H Seg Neuts % (Manual) Lymphocytes % (Manual) Monocytes % (Manual) Eosinophils % (Manual) Nucleated RBC % Seg Neutrophils # Seg Neutrophils # Man Lymphocytes # (Manual) Monocytes # (Manual) Eosinophils # (Manual) PT INR POC ABG pH POC ABG pCO2 POC ABG pO2 Sodium Potassium Chloride Carbon Dioxide BUN Creatinine Glucose POC Glucose 140 H 117 H Lactic Acid Calcium Magnesium AST ALT Alkaline Phosphatase Troponin T C-Reactive Protein Total Protein Albumin LDL Cholesterol Direct HDL Cholesterol Hepatitis C Antibody Crossmatch 12/05/17 12/05/17 12/06/17 04:05 22:50 08:18 WBC RBC 2.80 L Hgb 7.4 L Hct 23.0 L MCV 82 L MCH 27 L MCHC RDW 19.5 H Plt Count 125 L Lymph % (Auto) [place] % (Auto) Eos % (Auto) Lymph # [place] # Eos # Seg Neutrophils % Seg Neuts % (Manual) Lymphocytes % (Manual) Monocytes % (Manual) Eosinophils % (Manual) Nucleated RBC % Seg Neutrophils # Seg Neutrophils # Man Lymphocytes # (Manual) Monocytes # (Manual) Eosinophils # (Manual) PT INR POC ABG pH POC ABG pCO2 POC ABG pO2 Sodium Potassium Chloride 107.4 H Carbon Dioxide BUN Creatinine 2.5 H Glucose POC Glucose 112 H Lactic Acid Calcium 8.3 L Magnesium AST ALT Alkaline Phosphatase Troponin T C-Reactive Protein Total Protein Albumin LDL Cholesterol Direct HDL Cholesterol Hepatitis C Antibody Crossmatch 12/06/17 12/06/17 12/06/17 08:18 12:01 23:58 WBC RBC Hgb Hct MCV MCH MCHC RDW Plt Count Lymph % (Auto) [place] % (Auto) Eos % (Auto) Lymph # [place] # Eos # Seg Neutrophils % Seg Neuts % (Manual) Lymphocytes % (Manual) Monocytes % (Manual) Eosinophils % (Manual) Nucleated RBC % Seg Neutrophils # Seg Neutrophils # Man Lymphocytes # (Manual) Monocytes # (Manual) Eosinophils # (Manual) PT INR POC ABG pH POC ABG pCO2 POC ABG pO2 Sodium Potassium Chloride 108.4 H Carbon Dioxide BUN 28 H Creatinine 3.7 H Glucose 103 H POC Glucose 106 H 108 H Lactic Acid Calcium 8.0 L Magnesium AST ALT Alkaline Phosphatase Troponin T C-Reactive Protein Total Protein Albumin LDL Cholesterol Direct HDL Cholesterol Hepatitis C Antibody Crossmatch 12/07/17 12/07/17 12/07/17 05:47 05:47 18:03 WBC RBC 2.79 L Hgb 7.3 L Hct 22.8 L MCV 82 L MCH 26 L MCHC RDW 19.1 H Plt Count 101 L Lymph % (Auto) [place] % (Auto) Eos % (Auto) Lymph # [place] # Eos # Seg Neutrophils % Seg Neuts % (Manual) 72.0 H Lymphocytes % (Manual) 13.0 L Monocytes % (Manual) Eosinophils % (Manual) 9.0 H Nucleated RBC % Seg Neutrophils # Seg Neutrophils # Man Lymphocytes # (Manual) 1.1 L Monocytes # (Manual) Eosinophils # (Manual) 0.8 H PT INR POC ABG pH POC ABG pCO2 POC ABG pO2 Sodium 146 H Potassium Chloride 109.8 H Carbon Dioxide BUN 36 H Creatinine 4.0 H Glucose POC Glucose 143 H Lactic Acid Calcium 8.0 L Magnesium AST ALT Alkaline Phosphatase Troponin T C-Reactive Protein Total Protein Albumin LDL Cholesterol Direct HDL Cholesterol Hepatitis C Antibody Crossmatch 12/07/17 12/08/17 12/08/17 23:33 05:10 05:10 WBC RBC 2.91 L Hgb 7.5 L Hct 24.4 L MCV MCH 26 L MCHC 31 L RDW 19.7 H Plt Count 109 L Lymph % (Auto) [place] % (Auto) Eos % (Auto) Lymph # [place] # Eos # Seg Neutrophils % Seg Neuts % (Manual) Lymphocytes % (Manual) 11.0 L Monocytes % (Manual) Eosinophils % (Manual) 12.0 H Nucleated RBC % Seg Neutrophils # Seg Neutrophils # Man Lymphocytes # (Manual) 0.7 L Monocytes # (Manual) Eosinophils # (Manual) 0.7 H PT INR POC ABG pH POC ABG pCO2 POC ABG pO2 Sodium 147 H Potassium Chloride 110.4 H Carbon Dioxide BUN Creatinine 2.8 H Glucose POC Glucose 107 H Lactic Acid Calcium 7.8 L Magnesium AST ALT Alkaline Phosphatase Troponin T C-Reactive Protein Total Protein Albumin LDL Cholesterol Direct HDL Cholesterol Hepatitis C Antibody Crossmatch 12/09/17 12/09/17 12/09/17 04:18 04:18 12:16 WBC RBC Hgb 7.2 L Hct 23.2 L MCV MCH MCHC RDW Plt Count Lymph % (Auto) [place] % (Auto) Eos % (Auto) Lymph # [place] # Eos # Seg Neutrophils % Seg Neuts % (Manual) Lymphocytes % (Manual) Monocytes % (Manual) Eosinophils % (Manual) Nucleated RBC % Seg Neutrophils # Seg Neutrophils # Man Lymphocytes # (Manual) Monocytes # (Manual) Eosinophils # (Manual) PT INR POC ABG pH POC ABG pCO2 POC ABG pO2 Sodium 150 H Potassium Chloride 114.5 H Carbon Dioxide BUN 25 H Creatinine 3.3 H Glucose POC Glucose 142 H Lactic Acid Calcium 7.7 L Magnesium AST ALT Alkaline Phosphatase Troponin T C-Reactive Protein Total Protein Albumin LDL Cholesterol Direct HDL Cholesterol Hepatitis C Antibody Crossmatch 12/10/17 12/10/17 12/11/17 05:14 05:14 12:05 WBC RBC 2.81 L Hgb 7.4 L Hct 23.9 L MCV MCH 26 L MCHC 31 L RDW 19.1 H Plt Count 128 L Lymph % (Auto) [place] % (Auto) Eos % (Auto) Lymph # [place] # Eos # Seg Neutrophils % Seg Neuts % (Manual) 78.0 H Lymphocytes % (Manual) 8.0 L Monocytes % (Manual) Eosinophils % (Manual) 5.0 H Nucleated RBC % Seg Neutrophils # Seg Neutrophils # Man Lymphocytes # (Manual) 0.6 L Monocytes # (Manual) Eosinophils # (Manual) PT INR POC ABG pH POC ABG pCO2 POC ABG pO2 Sodium Potassium Chloride Carbon Dioxide BUN Creatinine 2.2 H Glucose POC Glucose 127 H Lactic Acid Calcium 7.8 L Magnesium AST ALT Alkaline Phosphatase Troponin T C-Reactive Protein Total Protein Albumin LDL Cholesterol Direct HDL Cholesterol Hepatitis C Antibody Crossmatch 12/11/17 12/11/17 12/11/17 15:26 18:36 23:40 WBC RBC Hgb Hct MCV MCH MCHC RDW Plt Count Lymph % (Auto) [place] % (Auto) Eos % (Auto) Lymph # [place] # Eos # Seg Neutrophils % Seg Neuts % (Manual) Lymphocytes % (Manual) Monocytes % (Manual) Eosinophils % (Manual) Nucleated RBC % Seg Neutrophils # Seg Neutrophils # Man Lymphocytes # (Manual) Monocytes # (Manual) Eosinophils # (Manual) PT INR POC ABG pH POC ABG pCO2 POC ABG pO2 Sodium Potassium 3.3 L Chloride Carbon Dioxide BUN Creatinine 1.6 H Glucose POC Glucose 106 H 110 H Lactic Acid Calcium 7.6 L Magnesium AST ALT Alkaline Phosphatase Troponin T C-Reactive Protein Total Protein Albumin LDL Cholesterol Direct HDL Cholesterol Hepatitis C Antibody Crossmatch 12/12/17 12/12/17 12/12/17 05:10 05:41 05:41 WBC RBC 3.17 L Hgb 8.1 L Hct 25.7 L MCV 81 L MCH 25 L MCHC 31 L RDW 19.2 H Plt Count Lymph % (Auto) [place] % (Auto) Eos % (Auto) Lymph # [place] # Eos # Seg Neutrophils % Seg Neuts % (Manual) 74.0 H Lymphocytes % (Manual) 6.0 L Monocytes % (Manual) Eosinophils % (Manual) 9.0 H Nucleated RBC % Seg Neutrophils # Seg Neutrophils # Man Lymphocytes # (Manual) 0.6 L Monocytes # (Manual) Eosinophils # (Manual) 0.9 H PT INR POC ABG pH POC ABG pCO2 POC ABG pO2 Sodium Potassium 3.5 L Chloride Carbon Dioxide BUN Creatinine 2.3 H Glucose 113 H POC Glucose 112 H Lactic Acid Calcium 7.5 L Magnesium AST ALT Alkaline Phosphatase Troponin T C-Reactive Protein Total Protein Albumin LDL Cholesterol Direct HDL Cholesterol Hepatitis C Antibody Crossmatch 12/13/17 12/13/17 12/13/17 06:14 12:00 17:37 WBC RBC Hgb Hct MCV MCH MCHC RDW Plt Count Lymph % (Auto) [place] % (Auto) Eos % (Auto) Lymph # [place] # Eos # Seg Neutrophils % Seg Neuts % (Manual) Lymphocytes % (Manual) Monocytes % (Manual) Eosinophils % (Manual) Nucleated RBC % Seg Neutrophils # Seg Neutrophils # Man Lymphocytes # (Manual) Monocytes # (Manual) Eosinophils # (Manual) PT INR POC ABG pH POC ABG pCO2 POC ABG pO2 Sodium Potassium Chloride Carbon Dioxide BUN Creatinine Glucose POC Glucose 130 H 133 H 136 H Lactic Acid Calcium Magnesium AST ALT Alkaline Phosphatase Troponin T C-Reactive Protein Total Protein Albumin LDL Cholesterol Direct HDL Cholesterol Hepatitis C Antibody Crossmatch 12/13/17 12/14/17 12/14/17 23:39 05:11 05:11 WBC RBC Hgb Hct MCV MCH MCHC RDW Plt Count Lymph % (Auto) [place] % (Auto) Eos % (Auto) Lymph # [place] # Eos # Seg Neutrophils % Seg Neuts % (Manual) Lymphocytes % (Manual) Monocytes % (Manual) Eosinophils % (Manual) Nucleated RBC % Seg Neutrophils # Seg Neutrophils # Man Lymphocytes # (Manual) Monocytes # (Manual) Eosinophils # (Manual) PT 15.4 H INR 1.17 H POC ABG pH POC ABG pCO2 POC ABG pO2 Sodium Potassium Chloride Carbon Dioxide 21 L BUN 26 H Creatinine 2.9 H Glucose POC Glucose 108 H Lactic Acid Calcium 7.2 L Magnesium AST ALT Alkaline Phosphatase Troponin T C-Reactive Protein Total Protein Albumin LDL Cholesterol Direct HDL Cholesterol Hepatitis C Antibody Crossmatch 12/14/17 12/14/17 12/14/17 12:00 16:01 18:24 WBC 12.9 H RBC 3.25 L Hgb 8.2 L Hct 26.2 L MCV 81 L MCH 25 L MCHC 31 L RDW 19.2 H Plt Count Lymph % (Auto) [place] % (Auto) Eos % (Auto) Lymph # [place] # Eos # Seg Neutrophils % Seg Neuts % (Manual) Lymphocytes % (Manual) Monocytes % (Manual) Eosinophils % (Manual) Nucleated RBC % Seg Neutrophils # Seg Neutrophils # Man Lymphocytes # (Manual) Monocytes # (Manual) Eosinophils # (Manual) PT INR POC ABG pH POC ABG pCO2 POC ABG pO2 Sodium Potassium Chloride Carbon Dioxide BUN Creatinine Glucose POC Glucose 138 H 120 H Lactic Acid Calcium Magnesium AST ALT Alkaline Phosphatase Troponin T C-Reactive Protein Total Protein Albumin LDL Cholesterol Direct HDL Cholesterol Hepatitis C Antibody Crossmatch 12/14/17 12/14/17 12/15/17 23:29 Unknown 05:57 WBC 12.5 H RBC 2.48 L Hgb 6.0 L Hct 24.4 L MCV 79 L MCH 24 L MCHC 30 L RDW 18.5 H Plt Count 131 L Lymph % (Auto) 7.0 L [place] % (Auto) 8.9 H Eos % (Auto) 8.3 H Lymph # 0.9 L [place] # 1.1 H Eos # 1.0 H Seg Neutrophils % 75.2 H Seg Neuts % (Manual) Lymphocytes % (Manual) Monocytes % (Manual) Eosinophils % (Manual) Nucleated RBC % Seg Neutrophils # 9.4 H Seg Neutrophils # Man Lymphocytes # (Manual) Monocytes # (Manual) Eosinophils # (Manual) PT INR POC ABG pH POC ABG pCO2 POC ABG pO2 Sodium Potassium Chloride Carbon Dioxide BUN Creatinine Glucose POC Glucose 110 H 113 H Lactic Acid Calcium Magnesium AST ALT Alkaline Phosphatase Troponin T C-Reactive Protein Total Protein Albumin LDL Cholesterol Direct HDL Cholesterol Hepatitis C Antibody Crossmatch 12/15/17 12/15/17 12/15/17 11:50 13:37 17:58 WBC RBC Hgb 7.3 L Hct 23.3 L MCV MCH MCHC RDW Plt Count Lymph % (Auto) [place] % (Auto) Eos % (Auto) Lymph # [place] # Eos # Seg Neutrophils % Seg Neuts % (Manual) Lymphocytes % (Manual) Monocytes % (Manual) Eosinophils % (Manual) Nucleated RBC % Seg Neutrophils # Seg Neutrophils # Man Lymphocytes # (Manual) Monocytes # (Manual) Eosinophils # (Manual) PT INR POC ABG pH POC ABG pCO2 POC ABG pO2 Sodium Potassium Chloride Carbon Dioxide BUN Creatinine Glucose POC Glucose 106 H 110 H Lactic Acid Calcium Magnesium AST ALT Alkaline Phosphatase Troponin T C-Reactive Protein Total Protein Albumin LDL Cholesterol Direct HDL Cholesterol Hepatitis C Antibody Crossmatch 12/15/17 12/16/17 12/16/17 23:30 04:55 05:14 WBC 13.2 H RBC 2.79 L Hgb 6.9 L Hct 22.2 L MCV 80 L MCH 25 L MCHC 31 L RDW 18.8 H Plt Count Lymph % (Auto) 7.3 L [place] % (Auto) 11.0 H Eos % (Auto) 8.2 H Lymph # 1.0 L [place] # 1.4 H Eos # 1.1 H Seg Neutrophils % 72.9 H Seg Neuts % (Manual) Lymphocytes % (Manual) Monocytes % (Manual) Eosinophils % (Manual) Nucleated RBC % Seg Neutrophils # 9.6 H Seg Neutrophils # Man Lymphocytes # (Manual) Monocytes # (Manual) Eosinophils # (Manual) PT INR POC ABG pH POC ABG pCO2 POC ABG pO2 Sodium 131 L D Potassium 2.8 L* D Chloride 93.2 L Carbon Dioxide BUN 24 H Creatinine 2.0 H Glucose POC Glucose 111 H Lactic Acid Calcium 7.7 L Magnesium AST ALT Alkaline Phosphatase Troponin T C-Reactive Protein Total Protein Albumin LDL Cholesterol Direct HDL Cholesterol Hepatitis C Antibody Crossmatch 12/16/17 12/16/17 12/16/17 13:01 17:32 23:39 WBC RBC Hgb Hct MCV MCH MCHC RDW Plt Count Lymph % (Auto) [place] % (Auto) Eos % (Auto) Lymph # [place] # Eos # Seg Neutrophils % Seg Neuts % (Manual) Lymphocytes % (Manual) Monocytes % (Manual) Eosinophils % (Manual) Nucleated RBC % Seg Neutrophils # Seg Neutrophils # Man Lymphocytes # (Manual) Monocytes # (Manual) Eosinophils # (Manual) PT INR POC ABG pH POC ABG pCO2 POC ABG pO2 Sodium Potassium Chloride Carbon Dioxide BUN Creatinine Glucose POC Glucose 121 H 107 H Lactic Acid Calcium Magnesium AST ALT Alkaline Phosphatase Troponin T C-Reactive Protein Total Protein Albumin LDL Cholesterol Direct HDL Cholesterol Hepatitis C Antibody Crossmatch See Detail 12/17/17 12/17/17 12/17/17 05:08 05:08 12:03 WBC 12.9 H RBC 2.88 L Hgb 7.2 L Hct 22.6 L MCV 78 L MCH 25 L MCHC RDW 18.3 H Plt Count Lymph % (Auto) 8.0 L [place] % (Auto) 8.6 H Eos % (Auto) Lymph # 1.0 L [place] # 1.1 H Eos # Seg Neutrophils % 79.3 H Seg Neuts % (Manual) Lymphocytes % (Manual) Monocytes % (Manual) Eosinophils % (Manual) Nucleated RBC % Seg Neutrophils # 10.2 H Seg Neutrophils # Man Lymphocytes # (Manual) Monocytes # (Manual) Eosinophils # (Manual) PT INR POC ABG pH POC ABG pCO2 POC ABG pO2 Sodium Potassium 3.4 L D Chloride Carbon Dioxide BUN Creatinine Glucose 104 H POC Glucose 109 H Lactic Acid Calcium 7.6 L Magnesium 1.30 L AST ALT Alkaline Phosphatase 177 H Troponin T C-Reactive Protein Total Protein Albumin 2.0 L LDL Cholesterol Direct HDL Cholesterol Hepatitis C Antibody Crossmatch
[2017-12-17] MEDS ORDERED: ZOFRAN IV PRN (20:20)
[2017-12-17] MEDS: DILAUDID IV PRN (20:46)
--- NOTE | 2017-12-17 22:06 | XRay Report ---
FINAL REPORT PROCEDURE: XR ABDOMEN 1V AP TECHNIQUE: Single AP view of the left upper abdomen HISTORY: dobhoff placement COMPARISON: No prior studies are available for comparison. FINDINGS: Enteric tube tip is curled in the proximal stomach. If this is to be used for feeding, recommend advancement by 18 centimeters into the distal stomach. Bowel gas pattern is nonobstructive. Left abdominal drainage catheters are noted IMPRESSION: Enteric tube tip is curled in the proximal stomach. If this is to be used for feeding, recommend advancing into the distal stomach
--- NOTE | 2017-12-18 00:01 | XRay Report ---
FINAL REPORT PROCEDURE: XR ABDOMEN 1V AP TECHNIQUE: Abdominal radiograph, single supine AP view. HISTORY: dobhoff placement COMPARISON: No prior studies are available for comparison. FINDINGS: Bowel gas pattern:Nonobstructive. Masses or calcifications:None. Bony structures:No significant abnormality. Other:The Dobhoff tube is coiled in the stomach and is terminating within the stomach. A gastrostomy tube is noted. Hazy density is noted in the right lower hemithorax and the right costophrenic angle is obscured consistent with right pleural effusion IMPRESSION: Dobhoff tube is coiled in the stomach and is terminating in the stomach
[2017-12-18 01:03] LABS: Hematocrit 21.6 % (35.5-45.6); Hemoglobin 6.7 gm/dl (11.8-15.2); Mean Corpuscular HGB Conc 31 % (32-34); Mean Corpuscular Volume 78 fl (84-94); Platelet Count 185 K/mm3 (140-440); Red Blood Count 2.76 M/mm3 (3.65-5.03); Red Cell Distribution Width 18.4 % (13.2-15.2)
[2017-12-18 01:05] LABS: Mean Corpuscular Hemoglobin 24 pg (28-32)
[2017-12-18 01:22] LABS: Calcium 7.8 mg/dL (8.4-10.2)
[2017-12-18] MEDS ORDERED: MAGNESIUM SULFATE IV ONE (08:26)
[2017-12-18] MEDS ORDERED: MAGNESIUM SULFATE 2GM/50ML 2 GM/50 ML BAG IV ONE (09:00)
[2017-12-18] MEDS: DIFLUCAN FEEDTUBE SCH (09:05)
[2017-12-18] MEDS: PREVACID SOLUTAB FEEDTUBE SCH ×2 (09:05→22:02)
[2017-12-18] MEDS: MERREM 1,000 MG in NACL 0.9% 100 ML IV SCH (09:06)
[2017-12-18] MEDS: LOPRESSOR PO SCH ×2 (09:06→22:03)
--- NOTE | 2017-12-18 11:04 | Progress Note ---
Subjective Principal diagnosis: Acute hypoxic respiratory failure, s/p Trach Interval history: Patient was seen today for follow-up on multiple renal related issues Events of this hospitalization noted Dialysis dependent due to acute kidney injury Vitals labs intake output medications were reviewed Social history: Reviewed Allergies: Reviewed Family history: Reviewed Physical examination HEENT: Oral mucosa moist no pallor or icterus Neck: Supple no JVD Chest: Clear to auscultation anteriorly CVS: Regular rate and rhythm S1 and S2 heard Abdomen: Soft nontender no suprapubic masses no organomegaly appreciable Extremity: Dry skin less than 1+ peripheral edema Musculoskeletal: No joint effusion noted in knees and ankle Dermatology: No petechial rashes Psychiatry: No evidence of any agitation and aggression noted Assessment and plan Acute kidney injury due to acute tubular necrosis patient is currently dialysis dependent Thursday as tolerated only Patient was also seen and supervised on hemodialysis, discussed with dialysis nurse to give him albumin 25 g IV 1 hemodialyze only as tolerated and to withdraw the treatment if there is any instability currently is mildly tachycardic around 110 but otherwise tolerating dialysis treatment well As far as labs are concerned: Significant leukocytosis 22.6 hemoglobin 6.7 platelet count 185 pounds Hypokalemia appears to have improved Hyponatremia appears to be doing better Overall prognosis very poor We'll continue to follow and make recommendation from renal standpoint Objective - Vital Signs Vital signs: Vital Signs - 12hr 12/17/17 12/18/17 12/18/17 23:55 00:00 00:03 Temperature 98 F Pulse Rate 105 H 107 H 111 H Respiratory 31 H 30 H 30 H Rate Blood Pressure 104/68 111/66 111/66 O2 Sat by Pulse 99 95 98 Oximetry O2 Sat by Pulse 99 Oximetry [ Assessment] O2 Sat by Pulse Oximetry [ Bilateral Throughout] 12/18/17 12/18/17 12/18/17 01:00 02:00 03:00 Temperature Pulse Rate 109 H 99 H 106 H Respiratory 28 H 13 13 Rate Blood Pressure 111/66 114/76 113/73 O2 Sat by Pulse 99 97 99 Oximetry O2 Sat by Pulse Oximetry [ Assessment] O2 Sat by Pulse Oximetry [ Bilateral Throughout] 12/18/17 12/18/17 12/18/17 04:00 04:20 05:00 Temperature 97.9 F Pulse Rate 94 H 102 H Respiratory 29 H 29 H Rate Blood Pressure 109/60 117/70 O2 Sat by Pulse 96 98 Oximetry O2 Sat by Pulse 99 Oximetry [ Assessment] O2 Sat by Pulse Oximetry [ Bilateral Throughout] 12/18/17 12/18/17 12/18/17 06:00 07:00 08:00 Temperature 98.1 F Pulse Rate 98 H 107 H 95 H Respiratory 28 H 27 H 24 Rate Blood Pressure 103/59 115/69 108/66 O2 Sat by Pulse 95 99 100 Oximetry O2 Sat by Pulse Oximetry [ Assessment] O2 Sat by Pulse Oximetry [ Bilateral Throughout] 12/18/17 12/18/17 12/18/17 09:00 09:06 10:00 Temperature 98.0 F Pulse Rate 104 H 111 H 89 Respiratory 32 H 26 H Rate Blood Pressure 117/69 117/69 112/59 O2 Sat by Pulse 97 93 Oximetry O2 Sat by Pulse Oximetry [ Assessment] O2 Sat by Pulse 95 Oximetry [ Bilateral Throughout] 12/18/17 12/18/17 12/18/17 10:20 10:30 10:45 Temperature Pulse Rate 109 H 110 H 110 H Respiratory Rate Blood Pressure 126/65 121/73 105/81 O2 Sat by Pulse Oximetry O2 Sat by Pulse Oximetry [ Assessment] O2 Sat by Pulse Oximetry [ Bilateral Throughout] - Lab 12/18/17 00:50 12/18/17 00:50 Most recent lab results Calcium 7.8 mg/dL (8.4-10.2) L 12/18/17 00:50 Phosphorus 2.60 mg/dL (2.5-4.5) 12/11/17 15:26 Magnesium 1.50 mg/dL (1.7-2.3) L 12/18/17 00:50
[2017-12-18] MEDS ORDERED: ALBURX 25% (ALBUMIN) IV PRN (11:42)
[2017-12-18] MEDS ORDERED: NACL 0.9% 100 ML IV PRN (11:42)
--- NOTE | 2017-12-18 12:12 | Progress Note ---
Assessment and Plan 67 y/o male with acute on chronic respiratory failure, now trached, with peritonitis from dislodged peg tube s/p 2 IR drains now with NGT feedings now spiking fevers again. No new recs for today. Please see below. 1. Trach Care 2. IV abx therapy per ID 3. Electrolytes per primary and renal 4. Will continue to follow along with you. Subjective Date of service: 12/18/17 Principal diagnosis: Acute hypoxic respiratory failure, s/p Trach Interval history: No acute events. Objective Vital Signs - 12hr 12/18/17 12/18/17 12/18/17 01:00 02:00 03:00 Temperature Pulse Rate 109 H 99 H 106 H Respiratory 28 H 13 13 Rate Blood Pressure 111/66 114/76 113/73 O2 Sat by Pulse 99 97 99 Oximetry O2 Sat by Pulse Oximetry [ Assessment] O2 Sat by Pulse Oximetry [ Bilateral Throughout] 12/18/17 12/18/17 12/18/17 04:00 04:20 05:00 Temperature 97.9 F Pulse Rate 94 H 102 H Respiratory 29 H 29 H Rate Blood Pressure 109/60 117/70 O2 Sat by Pulse 96 98 Oximetry O2 Sat by Pulse 99 Oximetry [ Assessment] O2 Sat by Pulse Oximetry [ Bilateral Throughout] 12/18/17 12/18/17 12/18/17 06:00 07:00 08:00 Temperature 98.1 F Pulse Rate 98 H 107 H 95 H Respiratory 28 H 27 H 24 Rate Blood Pressure 103/59 115/69 108/66 O2 Sat by Pulse 95 99 100 Oximetry O2 Sat by Pulse Oximetry [ Assessment] O2 Sat by Pulse Oximetry [ Bilateral Throughout] 12/18/17 12/18/17 12/18/17 09:00 09:06 10:00 Temperature 98.0 F Pulse Rate 104 H 111 H 89 Respiratory 32 H 26 H Rate Blood Pressure 117/69 117/69 112/59 O2 Sat by Pulse 97 93 Oximetry O2 Sat by Pulse Oximetry [ Assessment] O2 Sat by Pulse 95 Oximetry [ Bilateral Throughout] 12/18/17 12/18/17 12/18/17 10:20 10:30 10:45 Temperature Pulse Rate 109 H 110 H 110 H Respiratory Rate Blood Pressure 126/65 121/73 105/81 O2 Sat by Pulse Oximetry O2 Sat by Pulse Oximetry [ Assessment] O2 Sat by Pulse Oximetry [ Bilateral Throughout] 12/18/17 12/18/17 12/18/17 11:00 11:15 11:30 Temperature Pulse Rate 108 H 111 H 111 H Respiratory Rate Blood Pressure 119/74 132/75 135/71 O2 Sat by Pulse Oximetry O2 Sat by Pulse Oximetry [ Assessment] O2 Sat by Pulse Oximetry [ Bilateral Throughout] 12/18/17 12/18/17 11:45 12:00 Temperature Pulse Rate 124 H 128 H Respiratory Rate Blood Pressure 138/75 143/75 O2 Sat by Pulse Oximetry O2 Sat by Pulse Oximetry [ Assessment] O2 Sat by Pulse Oximetry [ Bilateral Throughout] Constitutional: no acute distress, alert Eyes: non-icteric ENT: oropharynx moist Neck: supple (trach in position), no JVD Effort: normal Ascultation: Bilateral: clear, rhonchi (bilateral,post tussive), other (coarse BS bilaterally) Cardiovascular: regular rate and rhythm Gastrointestinal: normoactive bowel sounds, soft, non-tender, other (drainages in place) Integumentary: normal Extremities: no cyanosis, pink and warm, anasarca Neurologic: other (L hemiparesis,awake, response to my voice) Psychiatric: other (unable to assess) CBC and BMP: 12/18/17 00:50 12/18/17 00:50 ABG, PT/INR, D-dimer: ABG POC ABG pH 7.505 (7.35-7.45) H 11/23/17 04:56 POC ABG pCO2 26.3 (35-45) L 11/23/17 04:56 POC ABG pO2 100 (80-105) 11/23/17 04:56 POC ABG HCO3 20.8 11/23/17 04:56 POC ABG Total CO2 22 11/23/17 04:56 POC ABG O2 Sat 98 11/23/17 04:56 PT/INR, D-dimer PT 15.4 Sec. (12.2-14.9) H 12/14/17 05:11 INR 1.17 (0.87-1.13) H 12/14/17 05:11 Abnormal lab findings: Abnormal Labs 11/11/17 11/11/17 11/11/17 23:18 23:20 23:20 WBC RBC Hgb 10.4 L Hct 32.6 L D MCV MCH 27 L MCHC RDW 17.4 H Plt Count 105 L Lymph % (Auto) [place] % (Auto) Eos % (Auto) Lymph # [place] # Eos # Seg Neutrophils % Seg Neuts % (Manual) Lymphocytes % (Manual) 8.0 L Monocytes % (Manual) Eosinophils % (Manual) Nucleated RBC % 1.0 H Seg Neutrophils # Seg Neutrophils # Man Lymphocytes # (Manual) 0.7 L Monocytes # (Manual) Eosinophils # (Manual) PT INR POC ABG pH 7.550 H POC ABG pCO2 31.6 L POC ABG pO2 Sodium 146 H Potassium Chloride Carbon Dioxide BUN 26 H Creatinine 1.7 H D Glucose 133 H POC Glucose Lactic Acid Calcium Magnesium AST ALT Alkaline Phosphatase Troponin T 0.117 H* C-Reactive Protein Total Protein Albumin 2.5 L LDL Cholesterol Direct 42 L HDL Cholesterol 24 L Hepatitis C Antibody Crossmatch 11/11/17 11/12/17 11/12/17 23:20 00:23 00:23 WBC RBC Hgb Hct MCV MCH MCHC RDW Plt Count Lymph % (Auto) [place] % (Auto) Eos % (Auto) Lymph # [place] # Eos # Seg Neutrophils % Seg Neuts % (Manual) Lymphocytes % (Manual) Monocytes % (Manual) Eosinophils % (Manual) Nucleated RBC % Seg Neutrophils # Seg Neutrophils # Man Lymphocytes # (Manual) Monocytes # (Manual) Eosinophils # (Manual) PT 16.7 H INR 1.28 H POC ABG pH POC ABG pCO2 POC ABG pO2 Sodium Potassium Chloride Carbon Dioxide BUN Creatinine Glucose POC Glucose Lactic Acid 3.20 H* Calcium Magnesium AST ALT Alkaline Phosphatase Troponin T C-Reactive Protein 25.70 H Total Protein Albumin LDL Cholesterol Direct HDL Cholesterol Hepatitis C Antibody Crossmatch 11/12/17 11/12/17 11/12/17 00:46 01:27 01:27 WBC RBC Hgb Hct MCV MCH MCHC RDW Plt Count Lymph % (Auto) [place] % (Auto) Eos % (Auto) Lymph # [place] # Eos # Seg Neutrophils % Seg Neuts % (Manual) Lymphocytes % (Manual) Monocytes % (Manual) Eosinophils % (Manual) Nucleated RBC % Seg Neutrophils # Seg Neutrophils # Man Lymphocytes # (Manual) Monocytes # (Manual) Eosinophils # (Manual) PT INR POC ABG pH 7.495 H POC ABG pCO2 32.0 L POC ABG pO2 64 L Sodium Potassium Chloride Carbon Dioxide BUN Creatinine Glucose POC Glucose Lactic Acid 3.70 H* Calcium Magnesium AST ALT Alkaline Phosphatase Troponin T 0.096 H C-Reactive Protein Total Protein Albumin LDL Cholesterol Direct HDL Cholesterol Hepatitis C Antibody Crossmatch 11/12/17 11/12/17 11/12/17 03:21 04:50 06:27 WBC RBC Hgb Hct MCV MCH MCHC RDW Plt Count Lymph % (Auto) [place] % (Auto) Eos % (Auto) Lymph # [place] # Eos # Seg Neutrophils % Seg Neuts % (Manual) Lymphocytes % (Manual) Monocytes % (Manual) Eosinophils % (Manual) Nucleated RBC % Seg Neutrophils # Seg Neutrophils # Man Lymphocytes # (Manual) Monocytes # (Manual) Eosinophils # (Manual) PT INR POC ABG pH POC ABG pCO2 POC ABG pO2 109 H Sodium Potassium Chloride Carbon Dioxide BUN Creatinine Glucose POC Glucose Lactic Acid 3.80 H* 2.20 H* Calcium Magnesium AST ALT Alkaline Phosphatase Troponin T C-Reactive Protein Total Protein Albumin LDL Cholesterol Direct HDL Cholesterol Hepatitis C Antibody Crossmatch 11/12/17 11/12/17 11/12/17 09:24 09:24 09:24 WBC RBC Hgb 10.4 L Hct 33.4 L MCV MCH MCHC RDW Plt Count Lymph % (Auto) [place] % (Auto) Eos % (Auto) Lymph # [place] # Eos # Seg Neutrophils % Seg Neuts % (Manual) Lymphocytes % (Manual) Monocytes % (Manual) Eosinophils % (Manual) Nucleated RBC % Seg Neutrophils # Seg Neutrophils # Man Lymphocytes # (Manual) Monocytes # (Manual) Eosinophils # (Manual) PT INR POC ABG pH POC ABG pCO2 POC ABG pO2 Sodium Potassium Chloride Carbon Dioxide BUN Creatinine Glucose POC Glucose Lactic Acid 2.90 H* Calcium Magnesium AST ALT Alkaline Phosphatase Troponin T 0.091 H C-Reactive Protein Total Protein Albumin LDL Cholesterol Direct HDL Cholesterol Hepatitis C Antibody Crossmatch 11/12/17 11/12/17 11/12/17 12:56 20:03 Unknown WBC RBC Hgb Hct MCV MCH MCHC RDW Plt Count Lymph % (Auto) [place] % (Auto) Eos % (Auto) Lymph # [place] # Eos # Seg Neutrophils % Seg Neuts % (Manual) Lymphocytes % (Manual) Monocytes % (Manual) Eosinophils % (Manual) Nucleated RBC % Seg Neutrophils # Seg Neutrophils # Man Lymphocytes # (Manual) Monocytes # (Manual) Eosinophils # (Manual) PT INR POC ABG pH POC ABG pCO2 POC ABG pO2 Sodium Potassium Chloride Carbon Dioxide BUN Creatinine Glucose POC Glucose Lactic Acid 3.60 H* Calcium Magnesium AST ALT Alkaline Phosphatase Troponin T 0.102 H* 0.156 H* D C-Reactive Protein Total Protein Albumin LDL Cholesterol Direct HDL Cholesterol Hepatitis C Antibody Crossmatch 11/12/17 11/13/17 11/13/17 Unknown 04:50 04:50 WBC 12.2 H RBC 3.51 L Hgb 9.3 L Hct 30.1 L MCV MCH 26 L MCHC 31 L RDW 18.0 H Plt Count 128 L Lymph % (Auto) 8.6 L [place] % (Auto) 11.1 H Eos % (Auto) Lymph # 1.1 L [place] # 1.4 H Eos # Seg Neutrophils % 80.1 H Seg Neuts % (Manual) Lymphocytes % (Manual) Monocytes % (Manual) Eosinophils % (Manual) Nucleated RBC % Seg Neutrophils # 9.8 H Seg Neutrophils # Man Lymphocytes # (Manual) Monocytes # (Manual) Eosinophils # (Manual) PT INR POC ABG pH POC ABG pCO2 POC ABG pO2 Sodium 149 H Potassium 5.1 H Chloride 114.4 H Carbon Dioxide 18 L BUN 52 H Creatinine 3.3 H D Glucose 129 H POC Glucose Lactic Acid Calcium 7.9 L Magnesium AST ALT Alkaline Phosphatase Troponin T 0.098 H C-Reactive Protein Total Protein Albumin LDL Cholesterol Direct HDL Cholesterol Hepatitis C Antibody Crossmatch 11/13/17 11/13/17 11/14/17 04:51 09:34 04:21 WBC RBC Hgb Hct MCV MCH MCHC RDW Plt Count Lymph % (Auto) [place] % (Auto) Eos % (Auto) Lymph # [place] # Eos # Seg Neutrophils % Seg Neuts % (Manual) Lymphocytes % (Manual) Monocytes % (Manual) Eosinophils % (Manual) Nucleated RBC % Seg Neutrophils # Seg Neutrophils # Man Lymphocytes # (Manual) Monocytes # (Manual) Eosinophils # (Manual) PT INR POC ABG pH POC ABG pCO2 30.1 L 29.8 L POC ABG pO2 135 H Sodium Potassium Chloride Carbon Dioxide BUN Creatinine Glucose POC Glucose Lactic Acid 2.10 H* Calcium Magnesium AST ALT Alkaline Phosphatase Troponin T C-Reactive Protein Total Protein Albumin LDL Cholesterol Direct HDL Cholesterol Hepatitis C Antibody Crossmatch 11/15/17 11/15/17 11/16/17 04:52 15:50 05:17 WBC RBC Hgb Hct MCV MCH MCHC RDW Plt Count Lymph % (Auto) [place] % (Auto) Eos % (Auto) Lymph # [place] # Eos # Seg Neutrophils % Seg Neuts % (Manual) Lymphocytes % (Manual) Monocytes % (Manual) Eosinophils % (Manual) Nucleated RBC % Seg Neutrophils # Seg Neutrophils # Man Lymphocytes # (Manual) Monocytes # (Manual) Eosinophils # (Manual) PT INR POC ABG pH POC ABG pCO2 29.5 L 31.5 L POC ABG pO2 115 H 122 H Sodium 154 H Potassium Chloride 117.9 H Carbon Dioxide 19 L BUN 87 H Creatinine 4.1 H Glucose POC Glucose Lactic Acid Calcium 8.1 L Magnesium AST ALT Alkaline Phosphatase Troponin T C-Reactive Protein Total Protein Albumin LDL Cholesterol Direct HDL Cholesterol Hepatitis C Antibody Crossmatch 11/16/17 11/17/17 11/17/17 16:37 04:07 10:00 WBC 14.7 H RBC 3.23 L Hgb 8.3 L Hct 28.1 L MCV MCH 26 L MCHC 30 L RDW 18.8 H Plt Count Lymph % (Auto) [place] % (Auto) Eos % (Auto) Lymph # [place] # Eos # Seg Neutrophils % Seg Neuts % (Manual) 75 H Lymphocytes % (Manual) 8.0 L Monocytes % (Manual) Eosinophils % (Manual) Nucleated RBC % 1.0 H Seg Neutrophils # Seg Neutrophils # Man 11.0 H Lymphocytes # (Manual) Monocytes # (Manual) 0.9 H Eosinophils # (Manual) PT INR POC ABG pH POC ABG pCO2 POC ABG pO2 Sodium 153 H 155 H Potassium Chloride 117.3 H 119.4 H Carbon Dioxide 19 L 20 L BUN 90 H 89 H Creatinine 3.9 H 3.6 H Glucose 111 H 115 H POC Glucose Lactic Acid Calcium 8.1 L 8.0 L Magnesium AST ALT Alkaline Phosphatase Troponin T C-Reactive Protein Total Protein Albumin LDL Cholesterol Direct HDL Cholesterol Hepatitis C Antibody Crossmatch 11/18/17 11/18/17 11/18/17 04:34 04:34 04:34 WBC 15.5 H RBC 3.13 L Hgb 8.1 L Hct 26.3 L MCV MCH 26 L MCHC 31 L RDW 18.6 H Plt Count Lymph % (Auto) [place] % (Auto) Eos % (Auto) Lymph # [place] # Eos # Seg Neutrophils % Seg Neuts % (Manual) 81.0 H Lymphocytes % (Manual) 7.0 L Monocytes % (Manual) Eosinophils % (Manual) Nucleated RBC % 1.0 H Seg Neutrophils # Seg Neutrophils # Man 12.6 H Lymphocytes # (Manual) 1.1 L Monocytes # (Manual) Eosinophils # (Manual) PT 16.7 H INR 1.30 H POC ABG pH POC ABG pCO2 POC ABG pO2 Sodium 155 H Potassium 3.2 L Chloride 121.0 H Carbon Dioxide 20 L BUN 74 H Creatinine 2.9 H Glucose 126 H POC Glucose Lactic Acid Calcium 7.9 L Magnesium AST ALT Alkaline Phosphatase Troponin T C-Reactive Protein Total Protein Albumin LDL Cholesterol Direct HDL Cholesterol Hepatitis C Antibody Crossmatch 11/19/17 11/19/17 11/20/17 04:44 04:44 00:38 WBC 19.0 H 22.2 H RBC 3.20 L 3.17 L Hgb 8.4 L 7.9 L Hct 27.9 L 26.4 L MCV 83 L MCH 26 L 25 L MCHC 30 L 30 L RDW 19.1 H 18.9 H Plt Count Lymph % (Auto) [place] % (Auto) Eos % (Auto) Lymph # [place] # Eos # Seg Neutrophils % Seg Neuts % (Manual) 83.0 H Lymphocytes % (Manual) 3.0 L Monocytes % (Manual) 9.0 H Eosinophils % (Manual) Nucleated RBC % Seg Neutrophils # Seg Neutrophils # Man 18.4 H Lymphocytes # (Manual) 0.7 L Monocytes # (Manual) 2.0 H Eosinophils # (Manual) PT INR POC ABG pH POC ABG pCO2 POC ABG pO2 Sodium 152 H Potassium Chloride 117.1 H Carbon Dioxide 17 L BUN 66 H Creatinine 2.8 H Glucose 119 H POC Glucose Lactic Acid Calcium 7.8 L Magnesium 2.70 H AST ALT Alkaline Phosphatase Troponin T C-Reactive Protein Total Protein Albumin LDL Cholesterol Direct HDL Cholesterol Hepatitis C Antibody Crossmatch 11/20/17 11/20/17 11/20/17 03:29 04:48 13:38 WBC RBC Hgb Hct MCV MCH MCHC RDW Plt Count Lymph % (Auto) [place] % (Auto) Eos % (Auto) Lymph # [place] # Eos # Seg Neutrophils % Seg Neuts % (Manual) Lymphocytes % (Manual) Monocytes % (Manual) Eosinophils % (Manual) Nucleated RBC % Seg Neutrophils # Seg Neutrophils # Man Lymphocytes # (Manual) Monocytes # (Manual) Eosinophils # (Manual) PT INR POC ABG pH POC ABG pCO2 29.4 L POC ABG pO2 Sodium 148 H Potassium 3.4 L Chloride 113.7 H Carbon Dioxide 18 L BUN 59 H Creatinine 2.7 H Glucose 113 H POC Glucose 128 H Lactic Acid Calcium 7.8 L Magnesium AST ALT Alkaline Phosphatase Troponin T C-Reactive Protein Total Protein Albumin LDL Cholesterol Direct HDL Cholesterol Hepatitis C Antibody Crossmatch 11/20/17 11/20/17 11/21/17 17:38 23:40 00:13 WBC RBC Hgb 8.4 L Hct 28.0 L MCV MCH MCHC RDW Plt Count Lymph % (Auto) [place] % (Auto) Eos % (Auto) Lymph # [place] # Eos # Seg Neutrophils % Seg Neuts % (Manual) Lymphocytes % (Manual) Monocytes % (Manual) Eosinophils % (Manual) Nucleated RBC % Seg Neutrophils # Seg Neutrophils # Man Lymphocytes # (Manual) Monocytes # (Manual) Eosinophils # (Manual) PT INR POC ABG pH POC ABG pCO2 POC ABG pO2 Sodium Potassium Chloride Carbon Dioxide BUN Creatinine Glucose POC Glucose 115 H 145 H Lactic Acid Calcium Magnesium AST ALT Alkaline Phosphatase Troponin T C-Reactive Protein Total Protein Albumin LDL Cholesterol Direct HDL Cholesterol Hepatitis C Antibody Crossmatch 11/21/17 11/21/17 11/21/17 04:30 04:30 04:58 WBC 21.0 H RBC Hgb 9.6 L Hct 32.7 L MCV MCH 25 L MCHC 29 L RDW 19.7 H Plt Count 746 H Lymph % (Auto) [place] % (Auto) Eos % (Auto) Lymph # [place] # Eos # Seg Neutrophils % Seg Neuts % (Manual) Lymphocytes % (Manual) Monocytes % (Manual) Eosinophils % (Manual) Nucleated RBC % Seg Neutrophils # Seg Neutrophils # Man Lymphocytes # (Manual) Monocytes # (Manual) Eosinophils # (Manual) PT INR POC ABG pH POC ABG pCO2 POC ABG pO2 Sodium Potassium Chloride 109.4 H Carbon Dioxide 14 L BUN 59 H Creatinine 3.0 H Glucose 137 H POC Glucose 132 H Lactic Acid Calcium 7.6 L Magnesium AST ALT Alkaline Phosphatase Troponin T C-Reactive Protein Total Protein Albumin LDL Cholesterol Direct HDL Cholesterol Hepatitis C Antibody Crossmatch 11/21/17 11/21/17 11/21/17 06:30 13:43 14:17 WBC 38.2 H RBC Hgb 9.0 L Hct 32.3 L MCV MCH 25 L MCHC 28 L RDW 20.0 H Plt Count 766 H Lymph % (Auto) [place] % (Auto) Eos % (Auto) Lymph # [place] # Eos # Seg Neutrophils % Seg Neuts % (Manual) 85.0 H Lymphocytes % (Manual) 1.0 L Monocytes % (Manual) Eosinophils % (Manual) Nucleated RBC % 2.0 H Seg Neutrophils # Seg Neutrophils # Man 32.5 H Lymphocytes # (Manual) 0.4 L Monocytes # (Manual) 2.3 H Eosinophils # (Manual) PT INR POC ABG pH POC ABG pCO2 18.6 L POC ABG pO2 121 H Sodium 146 H Potassium Chloride 110.9 H Carbon Dioxide 11 L BUN 62 H Creatinine 4.0 H Glucose 64 L POC Glucose Lactic Acid Calcium 7.6 L Magnesium AST ALT Alkaline Phosphatase Troponin T C-Reactive Protein Total Protein Albumin LDL Cholesterol Direct HDL Cholesterol Hepatitis C Antibody Crossmatch 11/21/17 11/21/17 11/22/17 14:17 19:09 00:05 WBC RBC Hgb Hct MCV MCH MCHC RDW Plt Count Lymph % (Auto) [place] % (Auto) Eos % (Auto) Lymph # [place] # Eos # Seg Neutrophils % Seg Neuts % (Manual) Lymphocytes % (Manual) Monocytes % (Manual) Eosinophils % (Manual) Nucleated RBC % Seg Neutrophils # Seg Neutrophils # Man Lymphocytes # (Manual) Monocytes # (Manual) Eosinophils # (Manual) PT INR POC ABG pH POC ABG pCO2 20.0 L POC ABG pO2 Sodium Potassium Chloride Carbon Dioxide BUN Creatinine Glucose POC Glucose 127 H Lactic Acid 7.70 H* Calcium Magnesium AST ALT Alkaline Phosphatase Troponin T C-Reactive Protein Total Protein Albumin LDL Cholesterol Direct HDL Cholesterol Hepatitis C Antibody Crossmatch 11/22/17 11/22/17 11/22/17 03:53 06:00 07:25 WBC RBC Hgb Hct MCV MCH MCHC RDW Plt Count Lymph % (Auto) [place] % (Auto) Eos % (Auto) Lymph # [place] # Eos # Seg Neutrophils % Seg Neuts % (Manual) Lymphocytes % (Manual) Monocytes % (Manual) Eosinophils % (Manual) Nucleated RBC % Seg Neutrophils # Seg Neutrophils # Man Lymphocytes # (Manual) Monocytes # (Manual) Eosinophils # (Manual) PT INR POC ABG pH POC ABG pCO2 22.2 L POC ABG pO2 Sodium 147 H Potassium Chloride 111.9 H Carbon Dioxide 16 L BUN 72 H Creatinine 5.1 H Glucose 181 H POC Glucose 180 H Lactic Acid Calcium 7.1 L Magnesium AST ALT Alkaline Phosphatase Troponin T C-Reactive Protein Total Protein Albumin LDL Cholesterol Direct HDL Cholesterol Hepatitis C Antibody Crossmatch 11/22/17 11/22/17 11/22/17 07:25 07:25 12:05 WBC 31.4 H RBC 3.22 L Hgb 8.0 L Hct 26.7 L MCV 83 L MCH 25 L MCHC 30 L RDW 19.4 H Plt Count 602 H Lymph % (Auto) [place] % (Auto) Eos % (Auto) Lymph # [place] # Eos # Seg Neutrophils % Seg Neuts % (Manual) Lymphocytes % (Manual) Monocytes % (Manual) Eosinophils % (Manual) Nucleated RBC % Seg Neutrophils # Seg Neutrophils # Man Lymphocytes # (Manual) Monocytes # (Manual) Eosinophils # (Manual) PT INR POC ABG pH POC ABG pCO2 POC ABG pO2 Sodium Potassium Chloride Carbon Dioxide BUN Creatinine Glucose POC Glucose 182 H Lactic Acid 5.00 H* Calcium Magnesium AST ALT Alkaline Phosphatase Troponin T C-Reactive Protein Total Protein Albumin LDL Cholesterol Direct HDL Cholesterol Hepatitis C Antibody Crossmatch 11/22/17 11/23/17 11/23/17 19:45 01:28 04:56 WBC RBC Hgb Hct MCV MCH MCHC RDW Plt Count Lymph % (Auto) [place] % (Auto) Eos % (Auto) Lymph # [place] # Eos # Seg Neutrophils % Seg Neuts % (Manual) Lymphocytes % (Manual) Monocytes % (Manual) Eosinophils % (Manual) Nucleated RBC % Seg Neutrophils # Seg Neutrophils # Man Lymphocytes # (Manual) Monocytes # (Manual) Eosinophils # (Manual) PT INR POC ABG pH 7.505 H POC ABG pCO2 26.3 L POC ABG pO2 Sodium Potassium Chloride Carbon Dioxide BUN Creatinine Glucose POC Glucose 165 H Lactic Acid Calcium Magnesium AST ALT Alkaline Phosphatase Troponin T C-Reactive Protein Total Protein Albumin LDL Cholesterol Direct HDL Cholesterol Hepatitis C Antibody Reactive A Crossmatch 11/23/17 11/23/17 11/23/17 07:05 12:32 17:53 WBC RBC Hgb Hct MCV MCH MCHC RDW Plt Count Lymph % (Auto) [place] % (Auto) Eos % (Auto) Lymph # [place] # Eos # Seg Neutrophils % Seg Neuts % (Manual) Lymphocytes % (Manual) Monocytes % (Manual) Eosinophils % (Manual) Nucleated RBC % Seg Neutrophils # Seg Neutrophils # Man Lymphocytes # (Manual) Monocytes # (Manual) Eosinophils # (Manual) PT INR POC ABG pH POC ABG pCO2 POC ABG pO2 Sodium Potassium Chloride Carbon Dioxide 18 L BUN 61 H Creatinine 4.2 H Glucose 153 H POC Glucose 138 H 173 H Lactic Acid Calcium 7.5 L Magnesium AST ALT Alkaline Phosphatase Troponin T C-Reactive Protein Total Protein Albumin LDL Cholesterol Direct HDL Cholesterol Hepatitis C Antibody Crossmatch 11/23/17 11/24/17 11/24/17 23:41 05:42 05:42 WBC 21.5 H RBC 2.48 L Hgb 6.2 L Hct 20.3 L D MCV 82 L MCH 25 L MCHC 31 L RDW 18.9 H Plt Count Lymph % (Auto) [place] % (Auto) Eos % (Auto) Lymph # [place] # Eos # Seg Neutrophils % Seg Neuts % (Manual) 94.0 H Lymphocytes % (Manual) 3.0 L Monocytes % (Manual) Eosinophils % (Manual) Nucleated RBC % Seg Neutrophils # Seg Neutrophils # Man 20.2 H Lymphocytes # (Manual) 0.6 L Monocytes # (Manual) Eosinophils # (Manual) PT INR POC ABG pH POC ABG pCO2 POC ABG pO2 Sodium 149 H Potassium 2.8 L* D Chloride 113.9 H Carbon Dioxide 19 L BUN 31 H Creatinine 2.3 H Glucose 103 H POC Glucose 133 H Lactic Acid Calcium 5.3 L* D Magnesium 1.30 L AST ALT Alkaline Phosphatase Troponin T C-Reactive Protein Total Protein Albumin LDL Cholesterol Direct HDL Cholesterol Hepatitis C Antibody Crossmatch 11/24/17 11/24/17 11/24/17 05:42 08:27 08:27 WBC RBC Hgb Hct MCV MCH MCHC RDW Plt Count Lymph % (Auto) [place] % (Auto) Eos % (Auto) Lymph # [place] # Eos # Seg Neutrophils % Seg Neuts % (Manual) Lymphocytes % (Manual) Monocytes % (Manual) Eosinophils % (Manual) Nucleated RBC % Seg Neutrophils # Seg Neutrophils # Man Lymphocytes # (Manual) Monocytes # (Manual) Eosinophils # (Manual) PT INR POC ABG pH POC ABG pCO2 POC ABG pO2 Sodium Potassium Chloride Carbon Dioxide BUN Creatinine Glucose POC Glucose Lactic Acid 5.40 H* 5.20 H* Calcium Magnesium AST ALT Alkaline Phosphatase Troponin T C-Reactive Protein Total Protein Albumin LDL Cholesterol Direct HDL Cholesterol Hepatitis C Antibody Crossmatch See Detail 11/24/17 11/24/17 11/24/17 12:13 17:22 21:53 WBC 23.0 H RBC 3.32 L Hgb 8.8 L Hct 27.1 L D MCV 82 L MCH 26 L MCHC RDW 17.3 H Plt Count Lymph % (Auto) [place] % (Auto) Eos % (Auto) Lymph # [place] # Eos # Seg Neutrophils % Seg Neuts % (Manual) Lymphocytes % (Manual) Monocytes % (Manual) Eosinophils % (Manual) Nucleated RBC % Seg Neutrophils # Seg Neutrophils # Man Lymphocytes # (Manual) Monocytes # (Manual) Eosinophils # (Manual) PT INR POC ABG pH POC ABG pCO2 POC ABG pO2 Sodium Potassium Chloride Carbon Dioxide BUN Creatinine Glucose POC Glucose 138 H 180 H Lactic Acid Calcium Magnesium AST ALT Alkaline Phosphatase Troponin T C-Reactive Protein Total Protein Albumin LDL Cholesterol Direct HDL Cholesterol Hepatitis C Antibody Crossmatch 11/24/17 11/24/17 11/25/17 21:53 23:28 04:19 WBC RBC Hgb Hct MCV MCH MCHC RDW Plt Count Lymph % (Auto) [place] % (Auto) Eos % (Auto) Lymph # [place] # Eos # Seg Neutrophils % Seg Neuts % (Manual) Lymphocytes % (Manual) Monocytes % (Manual) Eosinophils % (Manual) Nucleated RBC % Seg Neutrophils # Seg Neutrophils # Man Lymphocytes # (Manual) Monocytes # (Manual) Eosinophils # (Manual) PT INR POC ABG pH POC ABG pCO2 POC ABG pO2 Sodium Potassium Chloride 96.3 L Carbon Dioxide BUN 28 H 31 H Creatinine 2.3 H 2.6 H Glucose 125 H 101 H POC Glucose 111 H Lactic Acid Calcium 7.5 L D 7.4 L Magnesium AST 170 H ALT 179 H Alkaline Phosphatase 175 H Troponin T C-Reactive Protein Total Protein 5.5 L Albumin 1.8 L LDL Cholesterol Direct HDL Cholesterol Hepatitis C Antibody Crossmatch 11/25/17 11/25/17 11/26/17 04:19 04:19 06:29 WBC 22.5 H RBC 3.48 L Hgb 9.1 L Hct 28.3 L MCV 81 L MCH 26 L MCHC RDW 17.4 H Plt Count Lymph % (Auto) [place] % (Auto) Eos % (Auto) Lymph # [place] # Eos # Seg Neutrophils % Seg Neuts % (Manual) Lymphocytes % (Manual) Monocytes % (Manual) Eosinophils % (Manual) Nucleated RBC % Seg Neutrophils # Seg Neutrophils # Man Lymphocytes # (Manual) Monocytes # (Manual) Eosinophils # (Manual) PT 23.6 H INR 1.96 H POC ABG pH POC ABG pCO2 POC ABG pO2 Sodium Potassium Chloride Carbon Dioxide BUN 31 H Creatinine 2.6 H Glucose 101 H POC Glucose Lactic Acid Calcium 7.5 L Magnesium AST ALT Alkaline Phosphatase Troponin T C-Reactive Protein Total Protein Albumin LDL Cholesterol Direct HDL Cholesterol Hepatitis C Antibody Crossmatch 11/26/17 11/27/17 11/27/17 06:34 04:06 04:06 WBC 11.3 H RBC 3.13 L Hgb 8.4 L Hct 25.8 L MCV 82 L MCH 27 L MCHC RDW 17.7 H Plt Count Lymph % (Auto) 7.4 L [place] % (Auto) Eos % (Auto) Lymph # 0.8 L [place] # Eos # Seg Neutrophils % 83.7 H Seg Neuts % (Manual) Lymphocytes % (Manual) Monocytes % (Manual) Eosinophils % (Manual) Nucleated RBC % Seg Neutrophils # 9.5 H Seg Neutrophils # Man Lymphocytes # (Manual) Monocytes # (Manual) Eosinophils # (Manual) PT INR POC ABG pH POC ABG pCO2 POC ABG pO2 Sodium Potassium Chloride 97.9 L Carbon Dioxide BUN 43 H 29 H Creatinine 3.5 H 2.9 H Glucose POC Glucose Lactic Acid Calcium 7.5 L 8.1 L Magnesium AST ALT Alkaline Phosphatase Troponin T C-Reactive Protein Total Protein Albumin LDL Cholesterol Direct HDL Cholesterol Hepatitis C Antibody Crossmatch 11/27/17 11/28/17 11/28/17 18:11 00:16 03:50 WBC RBC Hgb Hct MCV MCH MCHC RDW Plt Count Lymph % (Auto) [place] % (Auto) Eos % (Auto) Lymph # [place] # Eos # Seg Neutrophils % Seg Neuts % (Manual) Lymphocytes % (Manual) Monocytes % (Manual) Eosinophils % (Manual) Nucleated RBC % Seg Neutrophils # Seg Neutrophils # Man Lymphocytes # (Manual) Monocytes # (Manual) Eosinophils # (Manual) PT INR POC ABG pH POC ABG pCO2 POC ABG pO2 Sodium Potassium Chloride Carbon Dioxide BUN 39 H Creatinine 4.1 H Glucose 108 H POC Glucose 110 H 124 H Lactic Acid Calcium 7.9 L Magnesium AST ALT Alkaline Phosphatase Troponin T C-Reactive Protein Total Protein Albumin LDL Cholesterol Direct HDL Cholesterol Hepatitis C Antibody Crossmatch 11/28/17 11/28/17 11/28/17 05:03 11:36 17:42 WBC RBC Hgb Hct MCV MCH MCHC RDW Plt Count Lymph % (Auto) [place] % (Auto) Eos % (Auto) Lymph # [place] # Eos # Seg Neutrophils % Seg Neuts % (Manual) Lymphocytes % (Manual) Monocytes % (Manual) Eosinophils % (Manual) Nucleated RBC % Seg Neutrophils # Seg Neutrophils # Man Lymphocytes # (Manual) Monocytes # (Manual) Eosinophils # (Manual) PT INR POC ABG pH POC ABG pCO2 POC ABG pO2 Sodium Potassium Chloride Carbon Dioxide BUN Creatinine Glucose POC Glucose 134 H 114 H 119 H Lactic Acid Calcium Magnesium AST ALT Alkaline Phosphatase Troponin T C-Reactive Protein Total Protein Albumin LDL Cholesterol Direct HDL Cholesterol Hepatitis C Antibody Crossmatch 11/29/17 11/29/17 11/29/17 00:22 05:25 05:25 WBC 12.3 H RBC 3.34 L Hgb 8.6 L Hct 27.3 L MCV 82 L MCH 26 L MCHC RDW 18.5 H Plt Count Lymph % (Auto) 3.7 L [place] % (Auto) 7.7 H Eos % (Auto) Lymph # 0.5 L [place] # 1.0 H Eos # Seg Neutrophils % 86.5 H Seg Neuts % (Manual) Lymphocytes % (Manual) Monocytes % (Manual) Eosinophils % (Manual) Nucleated RBC % Seg Neutrophils # 10.7 H Seg Neutrophils # Man Lymphocytes # (Manual) Monocytes # (Manual) Eosinophils # (Manual) PT INR POC ABG pH POC ABG pCO2 POC ABG pO2 Sodium Potassium Chloride Carbon Dioxide BUN 29 H Creatinine 3.5 H Glucose 109 H POC Glucose 137 H Lactic Acid Calcium 7.8 L Magnesium AST ALT Alkaline Phosphatase Troponin T C-Reactive Protein Total Protein Albumin LDL Cholesterol Direct HDL Cholesterol Hepatitis C Antibody Crossmatch 11/29/17 11/30/17 11/30/17 05:26 00:26 04:17 WBC RBC Hgb Hct MCV MCH MCHC RDW Plt Count Lymph % (Auto) [place] % (Auto) Eos % (Auto) Lymph # [place] # Eos # Seg Neutrophils % Seg Neuts % (Manual) Lymphocytes % (Manual) Monocytes % (Manual) Eosinophils % (Manual) Nucleated RBC % Seg Neutrophils # Seg Neutrophils # Man Lymphocytes # (Manual) Monocytes # (Manual) Eosinophils # (Manual) PT INR POC ABG pH POC ABG pCO2 POC ABG pO2 Sodium Potassium Chloride Carbon Dioxide BUN 38 H Creatinine 4.3 H Glucose 109 H POC Glucose 129 H 152 H Lactic Acid Calcium 7.8 L Magnesium AST ALT Alkaline Phosphatase Troponin T C-Reactive Protein Total Protein Albumin LDL Cholesterol Direct HDL Cholesterol Hepatitis C Antibody Crossmatch 11/30/17 11/30/17 11/30/17 12:17 16:23 23:35 WBC RBC Hgb Hct MCV MCH MCHC RDW Plt Count Lymph % (Auto) [place] % (Auto) Eos % (Auto) Lymph # [place] # Eos # Seg Neutrophils % Seg Neuts % (Manual) Lymphocytes % (Manual) Monocytes % (Manual) Eosinophils % (Manual) Nucleated RBC % Seg Neutrophils # Seg Neutrophils # Man Lymphocytes # (Manual) Monocytes # (Manual) Eosinophils # (Manual) PT INR POC ABG pH POC ABG pCO2 POC ABG pO2 Sodium Potassium Chloride Carbon Dioxide BUN Creatinine Glucose POC Glucose 170 H 114 H 122 H Lactic Acid Calcium Magnesium AST ALT Alkaline Phosphatase Troponin T C-Reactive Protein Total Protein Albumin LDL Cholesterol Direct HDL Cholesterol Hepatitis C Antibody Crossmatch 12/01/17 12/01/17 12/01/17 04:09 04:09 12:17 WBC 14.1 H RBC 3.32 L Hgb 8.6 L Hct 27.0 L MCV 81 L MCH 26 L MCHC RDW 18.7 H Plt Count Lymph % (Auto) 5.5 L [place] % (Auto) 9.7 H Eos % (Auto) Lymph # 0.8 L [place] # 1.4 H Eos # Seg Neutrophils % 82.9 H Seg Neuts % (Manual) Lymphocytes % (Manual) Monocytes % (Manual) Eosinophils % (Manual) Nucleated RBC % Seg Neutrophils # 11.7 H Seg Neutrophils # Man Lymphocytes # (Manual) Monocytes # (Manual) Eosinophils # (Manual) PT INR POC ABG pH POC ABG pCO2 POC ABG pO2 Sodium Potassium 3.4 L Chloride Carbon Dioxide BUN 21 H Creatinine 3.0 H Glucose 108 H POC Glucose 126 H Lactic Acid Calcium 8.0 L Magnesium AST ALT Alkaline Phosphatase Troponin T C-Reactive Protein Total Protein Albumin LDL Cholesterol Direct HDL Cholesterol Hepatitis C Antibody Crossmatch 12/02/17 12/03/17 12/03/17 23:46 02:52 05:54 WBC 17.2 H RBC 3.21 L Hgb 8.5 L Hct 25.8 L MCV 80 L MCH 26 L MCHC RDW 18.4 H Plt Count 128 L Lymph % (Auto) [place] % (Auto) Eos % (Auto) Lymph # [place] # Eos # Seg Neutrophils % Seg Neuts % (Manual) Lymphocytes % (Manual) Monocytes % (Manual) Eosinophils % (Manual) Nucleated RBC % Seg Neutrophils # Seg Neutrophils # Man Lymphocytes # (Manual) Monocytes # (Manual) Eosinophils # (Manual) PT INR POC ABG pH POC ABG pCO2 POC ABG pO2 Sodium Potassium Chloride Carbon Dioxide BUN Creatinine Glucose POC Glucose 125 H 107 H Lactic Acid Calcium Magnesium AST ALT Alkaline Phosphatase Troponin T C-Reactive Protein Total Protein Albumin LDL Cholesterol Direct HDL Cholesterol Hepatitis C Antibody Crossmatch 12/03/17 12/03/17 12/04/17 12:05 Unknown 12:26 WBC RBC Hgb Hct MCV MCH MCHC RDW Plt Count Lymph % (Auto) [place] % (Auto) Eos % (Auto) Lymph # [place] # Eos # Seg Neutrophils % Seg Neuts % (Manual) Lymphocytes % (Manual) Monocytes % (Manual) Eosinophils % (Manual) Nucleated RBC % Seg Neutrophils # Seg Neutrophils # Man Lymphocytes # (Manual) Monocytes # (Manual) Eosinophils # (Manual) PT INR POC ABG pH POC ABG pCO2 POC ABG pO2 Sodium Potassium Chloride Carbon Dioxide BUN 21 H Creatinine 2.8 H Glucose 113 H POC Glucose 106 H 119 H Lactic Acid Calcium Magnesium AST ALT Alkaline Phosphatase Troponin T C-Reactive Protein Total Protein Albumin LDL Cholesterol Direct HDL Cholesterol Hepatitis C Antibody Crossmatch 12/04/17 12/05/17 12/05/17 17:57 00:52 04:05 WBC RBC 2.96 L Hgb 7.7 L Hct 24.2 L MCV 82 L MCH 26 L MCHC RDW 18.8 H Plt Count 105 L Lymph % (Auto) 10.6 L [place] % (Auto) 12.1 H Eos % (Auto) 5.2 H Lymph # 1.1 L [place] # 1.3 H Eos # 0.5 H Seg Neutrophils % 71.3 H Seg Neuts % (Manual) Lymphocytes % (Manual) Monocytes % (Manual) Eosinophils % (Manual) Nucleated RBC % Seg Neutrophils # Seg Neutrophils # Man Lymphocytes # (Manual) Monocytes # (Manual) Eosinophils # (Manual) PT INR POC ABG pH POC ABG pCO2 POC ABG pO2 Sodium Potassium Chloride Carbon Dioxide BUN Creatinine Glucose POC Glucose 140 H 117 H Lactic Acid Calcium Magnesium AST ALT Alkaline Phosphatase Troponin T C-Reactive Protein Total Protein Albumin LDL Cholesterol Direct HDL Cholesterol Hepatitis C Antibody Crossmatch 12/05/17 12/05/17 12/06/17 04:05 22:50 08:18 WBC RBC 2.80 L Hgb 7.4 L Hct 23.0 L MCV 82 L MCH 27 L MCHC RDW 19.5 H Plt Count 125 L Lymph % (Auto) [place] % (Auto) Eos % (Auto) Lymph # [place] # Eos # Seg Neutrophils % Seg Neuts % (Manual) Lymphocytes % (Manual) Monocytes % (Manual) Eosinophils % (Manual) Nucleated RBC % Seg Neutrophils # Seg Neutrophils # Man Lymphocytes # (Manual) Monocytes # (Manual) Eosinophils # (Manual) PT INR POC ABG pH POC ABG pCO2 POC ABG pO2 Sodium Potassium Chloride 107.4 H Carbon Dioxide BUN Creatinine 2.5 H Glucose POC Glucose 112 H Lactic Acid Calcium 8.3 L Magnesium AST ALT Alkaline Phosphatase Troponin T C-Reactive Protein Total Protein Albumin LDL Cholesterol Direct HDL Cholesterol Hepatitis C Antibody Crossmatch 12/06/17 12/06/17 12/06/17 08:18 12:01 23:58 WBC RBC Hgb Hct MCV MCH MCHC RDW Plt Count Lymph % (Auto) [place] % (Auto) Eos % (Auto) Lymph # [place] # Eos # Seg Neutrophils % Seg Neuts % (Manual) Lymphocytes % (Manual) Monocytes % (Manual) Eosinophils % (Manual) Nucleated RBC % Seg Neutrophils # Seg Neutrophils # Man Lymphocytes # (Manual) Monocytes # (Manual) Eosinophils # (Manual) PT INR POC ABG pH POC ABG pCO2 POC ABG pO2 Sodium Potassium Chloride 108.4 H Carbon Dioxide BUN 28 H Creatinine 3.7 H Glucose 103 H POC Glucose 106 H 108 H Lactic Acid Calcium 8.0 L Magnesium AST ALT Alkaline Phosphatase Troponin T C-Reactive Protein Total Protein Albumin LDL Cholesterol Direct HDL Cholesterol Hepatitis C Antibody Crossmatch 12/07/17 12/07/17 12/07/17 05:47 05:47 18:03 WBC RBC 2.79 L Hgb 7.3 L Hct 22.8 L MCV 82 L MCH 26 L MCHC RDW 19.1 H Plt Count 101 L Lymph % (Auto) [place] % (Auto) Eos % (Auto) Lymph # [place] # Eos # Seg Neutrophils % Seg Neuts % (Manual) 72.0 H Lymphocytes % (Manual) 13.0 L Monocytes % (Manual) Eosinophils % (Manual) 9.0 H Nucleated RBC % Seg Neutrophils # Seg Neutrophils # Man Lymphocytes # (Manual) 1.1 L Monocytes # (Manual) Eosinophils # (Manual) 0.8 H PT INR POC ABG pH POC ABG pCO2 POC ABG pO2 Sodium 146 H Potassium Chloride 109.8 H Carbon Dioxide BUN 36 H Creatinine 4.0 H Glucose POC Glucose 143 H Lactic Acid Calcium 8.0 L Magnesium AST ALT Alkaline Phosphatase Troponin T C-Reactive Protein Total Protein Albumin LDL Cholesterol Direct HDL Cholesterol Hepatitis C Antibody Crossmatch 12/07/17 12/08/17 12/08/17 23:33 05:10 05:10 WBC RBC 2.91 L Hgb 7.5 L Hct 24.4 L MCV MCH 26 L MCHC 31 L RDW 19.7 H Plt Count 109 L Lymph % (Auto) [place] % (Auto) Eos % (Auto) Lymph # [place] # Eos # Seg Neutrophils % Seg Neuts % (Manual) Lymphocytes % (Manual) 11.0 L Monocytes % (Manual) Eosinophils % (Manual) 12.0 H Nucleated RBC % Seg Neutrophils # Seg Neutrophils # Man Lymphocytes # (Manual) 0.7 L Monocytes # (Manual) Eosinophils # (Manual) 0.7 H PT INR POC ABG pH POC ABG pCO2 POC ABG pO2 Sodium 147 H Potassium Chloride 110.4 H Carbon Dioxide BUN Creatinine 2.8 H Glucose POC Glucose 107 H Lactic Acid Calcium 7.8 L Magnesium AST ALT Alkaline Phosphatase Troponin T C-Reactive Protein Total Protein Albumin LDL Cholesterol Direct HDL Cholesterol Hepatitis C Antibody Crossmatch 12/09/17 12/09/17 12/09/17 04:18 04:18 12:16 WBC RBC Hgb 7.2 L Hct 23.2 L MCV MCH MCHC RDW Plt Count Lymph % (Auto) [place] % (Auto) Eos % (Auto) Lymph # [place] # Eos # Seg Neutrophils % Seg Neuts % (Manual) Lymphocytes % (Manual) Monocytes % (Manual) Eosinophils % (Manual) Nucleated RBC % Seg Neutrophils # Seg Neutrophils # Man Lymphocytes # (Manual) Monocytes # (Manual) Eosinophils # (Manual) PT INR POC ABG pH POC ABG pCO2 POC ABG pO2 Sodium 150 H Potassium Chloride 114.5 H Carbon Dioxide BUN 25 H Creatinine 3.3 H Glucose POC Glucose 142 H Lactic Acid Calcium 7.7 L Magnesium AST ALT Alkaline Phosphatase Troponin T C-Reactive Protein Total Protein Albumin LDL Cholesterol Direct HDL Cholesterol Hepatitis C Antibody Crossmatch 12/10/17 12/10/17 12/11/17 05:14 05:14 12:05 WBC RBC 2.81 L Hgb 7.4 L Hct 23.9 L MCV MCH 26 L MCHC 31 L RDW 19.1 H Plt Count 128 L Lymph % (Auto) [place] % (Auto) Eos % (Auto) Lymph # [place] # Eos # Seg Neutrophils % Seg Neuts % (Manual) 78.0 H Lymphocytes % (Manual) 8.0 L Monocytes % (Manual) Eosinophils % (Manual) 5.0 H Nucleated RBC % Seg Neutrophils # Seg Neutrophils # Man Lymphocytes # (Manual) 0.6 L Monocytes # (Manual) Eosinophils # (Manual) PT INR POC ABG pH POC ABG pCO2 POC ABG pO2 Sodium Potassium Chloride Carbon Dioxide BUN Creatinine 2.2 H Glucose POC Glucose 127 H Lactic Acid Calcium 7.8 L Magnesium AST ALT Alkaline Phosphatase Troponin T C-Reactive Protein Total Protein Albumin LDL Cholesterol Direct HDL Cholesterol Hepatitis C Antibody Crossmatch 12/11/17 12/11/17 12/11/17 15:26 18:36 23:40 WBC RBC Hgb Hct MCV MCH MCHC RDW Plt Count Lymph % (Auto) [place] % (Auto) Eos % (Auto) Lymph # [place] # Eos # Seg Neutrophils % Seg Neuts % (Manual) Lymphocytes % (Manual) Monocytes % (Manual) Eosinophils % (Manual) Nucleated RBC % Seg Neutrophils # Seg Neutrophils # Man Lymphocytes # (Manual) Monocytes # (Manual) Eosinophils # (Manual) PT INR POC ABG pH POC ABG pCO2 POC ABG pO2 Sodium Potassium 3.3 L Chloride Carbon Dioxide BUN Creatinine 1.6 H Glucose POC Glucose 106 H 110 H Lactic Acid Calcium 7.6 L Magnesium AST ALT Alkaline Phosphatase Troponin T C-Reactive Protein Total Protein Albumin LDL Cholesterol Direct HDL Cholesterol Hepatitis C Antibody Crossmatch 12/12/17 12/12/17 12/12/17 05:10 05:41 05:41 WBC RBC 3.17 L Hgb 8.1 L Hct 25.7 L MCV 81 L MCH 25 L MCHC 31 L RDW 19.2 H Plt Count Lymph % (Auto) [place] % (Auto) Eos % (Auto) Lymph # [place] # Eos # Seg Neutrophils % Seg Neuts % (Manual) 74.0 H Lymphocytes % (Manual) 6.0 L Monocytes % (Manual) Eosinophils % (Manual) 9.0 H Nucleated RBC % Seg Neutrophils # Seg Neutrophils # Man Lymphocytes # (Manual) 0.6 L Monocytes # (Manual) Eosinophils # (Manual) 0.9 H PT INR POC ABG pH POC ABG pCO2 POC ABG pO2 Sodium Potassium 3.5 L Chloride Carbon Dioxide BUN Creatinine 2.3 H Glucose 113 H POC Glucose 112 H Lactic Acid Calcium 7.5 L Magnesium AST ALT Alkaline Phosphatase Troponin T C-Reactive Protein Total Protein Albumin LDL Cholesterol Direct HDL Cholesterol Hepatitis C Antibody Crossmatch 12/13/17 12/13/17 12/13/17 06:14 12:00 17:37 WBC RBC Hgb Hct MCV MCH MCHC RDW Plt Count Lymph % (Auto) [place] % (Auto) Eos % (Auto) Lymph # [place] # Eos # Seg Neutrophils % Seg Neuts % (Manual) Lymphocytes % (Manual) Monocytes % (Manual) Eosinophils % (Manual) Nucleated RBC % Seg Neutrophils # Seg Neutrophils # Man Lymphocytes # (Manual) Monocytes # (Manual) Eosinophils # (Manual) PT INR POC ABG pH POC ABG pCO2 POC ABG pO2 Sodium Potassium Chloride Carbon Dioxide BUN Creatinine Glucose POC Glucose 130 H 133 H 136 H Lactic Acid Calcium Magnesium AST ALT Alkaline Phosphatase Troponin T C-Reactive Protein Total Protein Albumin LDL Cholesterol Direct HDL Cholesterol Hepatitis C Antibody Crossmatch 12/13/17 12/14/17 12/14/17 23:39 05:11 05:11 WBC RBC Hgb Hct MCV MCH MCHC RDW Plt Count Lymph % (Auto) [place] % (Auto) Eos % (Auto) Lymph # [place] # Eos # Seg Neutrophils % Seg Neuts % (Manual) Lymphocytes % (Manual) Monocytes % (Manual) Eosinophils % (Manual) Nucleated RBC % Seg Neutrophils # Seg Neutrophils # Man Lymphocytes # (Manual) Monocytes # (Manual) Eosinophils # (Manual) PT 15.4 H INR 1.17 H POC ABG pH POC ABG pCO2 POC ABG pO2 Sodium Potassium Chloride Carbon Dioxide 21 L BUN 26 H Creatinine 2.9 H Glucose POC Glucose 108 H Lactic Acid Calcium 7.2 L Magnesium AST ALT Alkaline Phosphatase Troponin T C-Reactive Protein Total Protein Albumin LDL Cholesterol Direct HDL Cholesterol Hepatitis C Antibody Crossmatch 12/14/17 12/14/17 12/14/17 12:00 16:01 18:24 WBC 12.9 H RBC 3.25 L Hgb 8.2 L Hct 26.2 L MCV 81 L MCH 25 L MCHC 31 L RDW 19.2 H Plt Count Lymph % (Auto) [place] % (Auto) Eos % (Auto) Lymph # [place] # Eos # Seg Neutrophils % Seg Neuts % (Manual) Lymphocytes % (Manual) Monocytes % (Manual) Eosinophils % (Manual) Nucleated RBC % Seg Neutrophils # Seg Neutrophils # Man Lymphocytes # (Manual) Monocytes # (Manual) Eosinophils # (Manual) PT INR POC ABG pH POC ABG pCO2 POC ABG pO2 Sodium Potassium Chloride Carbon Dioxide BUN Creatinine Glucose POC Glucose 138 H 120 H Lactic Acid Calcium Magnesium AST ALT Alkaline Phosphatase Troponin T C-Reactive Protein Total Protein Albumin LDL Cholesterol Direct HDL Cholesterol Hepatitis C Antibody Crossmatch 12/14/17 12/14/17 12/15/17 23:29 Unknown 05:57 WBC 12.5 H RBC 2.48 L Hgb 6.0 L Hct 24.4 L MCV 79 L MCH 24 L MCHC 30 L RDW 18.5 H Plt Count 131 L Lymph % (Auto) 7.0 L [place] % (Auto) 8.9 H Eos % (Auto) 8.3 H Lymph # 0.9 L [place] # 1.1 H Eos # 1.0 H Seg Neutrophils % 75.2 H Seg Neuts % (Manual) Lymphocytes % (Manual) Monocytes % (Manual) Eosinophils % (Manual) Nucleated RBC % Seg Neutrophils # 9.4 H Seg Neutrophils # Man Lymphocytes # (Manual) Monocytes # (Manual) Eosinophils # (Manual) PT INR POC ABG pH POC ABG pCO2 POC ABG pO2 Sodium Potassium Chloride Carbon Dioxide BUN Creatinine Glucose POC Glucose 110 H 113 H Lactic Acid Calcium Magnesium AST ALT Alkaline Phosphatase Troponin T C-Reactive Protein Total Protein Albumin LDL Cholesterol Direct HDL Cholesterol Hepatitis C Antibody Crossmatch 12/15/17 12/15/17 12/15/17 11:50 13:37 17:58 WBC RBC Hgb 7.3 L Hct 23.3 L MCV MCH MCHC RDW Plt Count Lymph % (Auto) [place] % (Auto) Eos % (Auto) Lymph # [place] # Eos # Seg Neutrophils % Seg Neuts % (Manual) Lymphocytes % (Manual) Monocytes % (Manual) Eosinophils % (Manual) Nucleated RBC % Seg Neutrophils # Seg Neutrophils # Man Lymphocytes # (Manual) Monocytes # (Manual) Eosinophils # (Manual) PT INR POC ABG pH POC ABG pCO2 POC ABG pO2 Sodium Potassium Chloride Carbon Dioxide BUN Creatinine Glucose POC Glucose 106 H 110 H Lactic Acid Calcium Magnesium AST ALT Alkaline Phosphatase Troponin T C-Reactive Protein Total Protein Albumin LDL Cholesterol Direct HDL Cholesterol Hepatitis C Antibody Crossmatch 12/15/17 12/16/17 12/16/17 23:30 04:55 05:14 WBC 13.2 H RBC 2.79 L Hgb 6.9 L Hct 22.2 L MCV 80 L MCH 25 L MCHC 31 L RDW 18.8 H Plt Count Lymph % (Auto) 7.3 L [place] % (Auto) 11.0 H Eos % (Auto) 8.2 H Lymph # 1.0 L [place] # 1.4 H Eos # 1.1 H Seg Neutrophils % 72.9 H Seg Neuts % (Manual) Lymphocytes % (Manual) Monocytes % (Manual) Eosinophils % (Manual) Nucleated RBC % Seg Neutrophils # 9.6 H Seg Neutrophils # Man Lymphocytes # (Manual) Monocytes # (Manual) Eosinophils # (Manual) PT INR POC ABG pH POC ABG pCO2 POC ABG pO2 Sodium 131 L D Potassium 2.8 L* D Chloride 93.2 L Carbon Dioxide BUN 24 H Creatinine 2.0 H Glucose POC Glucose 111 H Lactic Acid Calcium 7.7 L Magnesium AST ALT Alkaline Phosphatase Troponin T C-Reactive Protein Total Protein Albumin LDL Cholesterol Direct HDL Cholesterol Hepatitis C Antibody Crossmatch 12/16/17 12/16/17 12/16/17 13:01 17:32 23:39 WBC RBC Hgb Hct MCV MCH MCHC RDW Plt Count Lymph % (Auto) [place] % (Auto) Eos % (Auto) Lymph # [place] # Eos # Seg Neutrophils % Seg Neuts % (Manual) Lymphocytes % (Manual) Monocytes % (Manual) Eosinophils % (Manual) Nucleated RBC % Seg Neutrophils # Seg Neutrophils # Man Lymphocytes # (Manual) Monocytes # (Manual) Eosinophils # (Manual) PT INR POC ABG pH POC ABG pCO2 POC ABG pO2 Sodium Potassium Chloride Carbon Dioxide BUN Creatinine Glucose POC Glucose 121 H 107 H Lactic Acid Calcium Magnesium AST ALT Alkaline Phosphatase Troponin T C-Reactive Protein Total Protein Albumin LDL Cholesterol Direct HDL Cholesterol Hepatitis C Antibody Crossmatch See Detail 12/17/17 12/17/17 12/17/17 05:08 05:08 12:03 WBC 12.9 H RBC 2.88 L Hgb 7.2 L Hct 22.6 L MCV 78 L MCH 25 L MCHC RDW 18.3 H Plt Count Lymph % (Auto) 8.0 L [place] % (Auto) 8.6 H Eos % (Auto) Lymph # 1.0 L [place] # 1.1 H Eos # Seg Neutrophils % 79.3 H Seg Neuts % (Manual) Lymphocytes % (Manual) Monocytes % (Manual) Eosinophils % (Manual) Nucleated RBC % Seg Neutrophils # 10.2 H Seg Neutrophils # Man Lymphocytes # (Manual) Monocytes # (Manual) Eosinophils # (Manual) PT INR POC ABG pH POC ABG pCO2 POC ABG pO2 Sodium Potassium 3.4 L D Chloride Carbon Dioxide BUN Creatinine Glucose 104 H POC Glucose 109 H Lactic Acid Calcium 7.6 L Magnesium 1.30 L AST ALT Alkaline Phosphatase 177 H Troponin T C-Reactive Protein Total Protein Albumin 2.0 L LDL Cholesterol Direct HDL Cholesterol Hepatitis C Antibody Crossmatch 12/17/17 12/18/17 12/18/17 23:40 00:50 00:50 WBC 22.6 H RBC 2.76 L Hgb 6.7 L Hct 21.6 L MCV 78 L MCH 24 L MCHC 31 L RDW 18.4 H Plt Count Lymph % (Auto) [place] % (Auto) Eos % (Auto) Lymph # [place] # Eos # Seg Neutrophils % Seg Neuts % (Manual) Lymphocytes % (Manual) Monocytes % (Manual) Eosinophils % (Manual) Nucleated RBC % Seg Neutrophils # Seg Neutrophils # Man Lymphocytes # (Manual) Monocytes # (Manual) Eosinophils # (Manual) PT INR POC ABG pH POC ABG pCO2 POC ABG pO2 Sodium Potassium Chloride Carbon Dioxide BUN 22 H Creatinine 1.6 H Glucose 113 H POC Glucose 120 H Lactic Acid Calcium 7.8 L Magnesium 1.50 L AST ALT Alkaline Phosphatase Troponin T C-Reactive Protein Total Protein Albumin LDL Cholesterol Direct HDL Cholesterol Hepatitis C Antibody Crossmatch 12/18/17 05:34 WBC RBC Hgb Hct MCV MCH MCHC RDW Plt Count Lymph % (Auto) [place] % (Auto) Eos % (Auto) Lymph # [place] # Eos # Seg Neutrophils % Seg Neuts % (Manual) Lymphocytes % (Manual) Monocytes % (Manual) Eosinophils % (Manual) Nucleated RBC % Seg Neutrophils # Seg Neutrophils # Man Lymphocytes # (Manual) Monocytes # (Manual) Eosinophils # (Manual) PT INR POC ABG pH POC ABG pCO2 POC ABG pO2 Sodium Potassium Chloride Carbon Dioxide BUN Creatinine Glucose POC Glucose 132 H Lactic Acid Calcium Magnesium AST ALT Alkaline Phosphatase Troponin T C-Reactive Protein Total Protein Albumin LDL Cholesterol Direct HDL Cholesterol Hepatitis C Antibody Crossmatch
--- NOTE | 2017-12-18 14:46 | Progress Note ---
Assessment and Plan Assessment and plan: Severe Acute on chronic blood loss anemia transfuse PRBC bleeding precautions at all times await Blood from [facility] Acute Hypomagnesemia, persistent replete and recheck Acute on chronic respiratory failure with hypoxia - due to aspiration and PNA - Status post tracheostomy, currently on T-piece - Pulmonology following Sepsis 2/2 aspiration pneumonia -Continue IV abx Aspiration pneumonia -treated with zosyn Peritonitis - likely from dislodged peg tube - peritoneal Fluid positive for Enterobacter, Heather (non albicans) - Antibiotics managed by ID - s/p multiple intraabdominal drainages placed by IR and GS. - last drainage was placed on 12/06 by IR Acute encephalopathy, likely multifactorial -Will continue to monitor clinically Oropharyngeal dysphagia -Status post PEG tube placement on 11/06, now removed -On tube feeding with dobb off -will need PEg tube before discharge History of recent CVA -Not on aspirin due to recent bleed RT ICA stenosis -s/p recent endarterectomy Disposition: Per hospital course. Continue management Further pt mgt per hospital course. Disposition Plan: Transfuse [facility]BC once Blood ready [facility]. Total Time Spent with Patient (Minutes): 30 mins History Interval history: Blood not ready No family H is down to 6.7. Pt seen and exam Hospitalist Physical - Constitutional Vitals: Temp Pulse Resp BP Pulse Ox 97.8 F 99 H 25 H 139/73 95 12/18/17 14:19 12/18/17 14:19 12/18/17 14:19 12/18/17 14:19 12/18/17 14:19 General appearance: Present: no acute distress, other (ill appearing) - EENT Eyes: Present: PERRL ENT: other (unable to assess, due to aphasia) - Neck Neck: Present: supple - Respiratory Respiratory: bilateral: diminished, rhonchi, negative: wheezing - Cardiovascular Rhythm: regular Heart Sounds: Present: S1 & S2 - Extremities Extremities: pulses intact, normal temperature Extremity abnormal: edema - Abdominal General gastrointestinal: soft, non-tender, other (protuberant) - Integumentary Integumentary: Present: clear, warm - Psychiatric Psychiatric: other (unable to assess due to encephalopathy) - Neurologic Neurologic: other (left sided hemiparesis, and left neglect,.) - Allied Health Allied health notes reviewed: nursing, social work, case management Results - Labs CBC & Chem 7: 12/18/17 00:50 12/18/17 00:50 Labs: Laboratory Last Values WBC 22.6 K/mm3 (4.5-11.0) H 12/18/17 00:50 RBC 2.76 M/mm3 (3.65-5.03) L 12/18/17 00:50 Hgb 6.7 gm/dl (11.8-15.2) L 12/18/17 00:50 Hct 21.6 % (35.5-45.6) L 12/18/17 00:50 MCV 78 fl (84-94) L 12/18/17 00:50 MCH 24 pg (28-32) L 12/18/17 00:50 MCHC 31 % (32-34) L 12/18/17 00:50 RDW 18.4 % (13.2-15.2) H 12/18/17 00:50 Plt Count 185 K/mm3 (140-440) 12/18/17 00:50 Lymph % (Auto) 8.0 % (13.4-35.0) L 12/17/17 05:08 [place] % (Auto) 8.6 % (0.0-7.3) H 12/17/17 05:08 Eos % (Auto) 3.2 % (0.0-4.3) 12/17/17 05:08 Baso % (Auto) 0.9 % (0.0-1.8) 12/17/17 05:08 Lymph # 1.0 K/mm3 (1.2-5.4) L 12/17/17 05:08 [place] # 1.1 K/mm3 (0.0-0.8) H 12/17/17 05:08 Eos # 0.4 K/mm3 (0.0-0.4) 12/17/17 05:08 Baso # 0.1 K/mm3 (0.0-0.1) 12/17/17 05:08 Add Manual Diff Complete 12/12/17 05:41 Total Counted 100 12/12/17 05:41 Seg Neutrophils % 79.3 % (40.0-70.0) H 12/17/17 05:08 Seg Neuts % (Manual) 74.0 % (40.0-70.0) H 12/12/17 05:41 Band Neutrophils % 6.0 % 12/12/17 05:41 Lymphocytes % (Manual) 6.0 % (13.4-35.0) L 12/12/17 05:41 Reactive Lymphs % (Man) 0 % 12/12/17 05:41 Monocytes % (Manual) 2.0 % (0.0-7.3) 12/12/17 05:41 Eosinophils % (Manual) 9.0 % (0.0-4.3) H 12/12/17 05:41 Basophils % (Manual) 0 % (0.0-1.8) 12/12/17 05:41 Metamyelocytes % 3.0 % 12/12/17 05:41 Myelocytes % 0 % 12/12/17 05:41 Promyelocytes % 0 % 12/12/17 05:41 Blast Cells % 0 % 12/12/17 05:41 Nucleated RBC % Not Reportable 12/12/17 05:41 Seg Neutrophils # 10.2 K/mm3 (1.8-7.7) H 12/17/17 05:08 Seg Neutrophils # Man 7.7 K/mm3 (1.8-7.7) 12/12/17 05:41 Band Neutrophils # 0.6 K/mm3 12/12/17 05:41 Lymphocytes # (Manual) 0.6 K/mm3 (1.2-5.4) L 12/12/17 05:41 Abs React Lymphs (Man) 0.0 K/mm3 12/12/17 05:41 Monocytes # (Manual) 0.2 K/mm3 (0.0-0.8) 12/12/17 05:41 Eosinophils # (Manual) 0.9 K/mm3 (0.0-0.4) H 12/12/17 05:41 Basophils # (Manual) 0.0 K/mm3 (0.0-0.1) 12/12/17 05:41 Metamyelocytes # 0.3 K/mm3 12/12/17 05:41 Myelocytes # 0.0 K/mm3 12/12/17 05:41 Promyelocytes # 0.0 K/mm3 12/12/17 05:41 Blast Cells # 0.0 K/mm3 12/12/17 05:41 WBC Morphology Not Reportable 12/12/17 05:41 Hypersegmented Neuts Not Reportable 12/12/17 05:41 Hyposegmented Neuts Not Reportable 12/12/17 05:41 Hypogranular Neuts Not Reportable 12/12/17 05:41 Smudge Cells Not Reportable 12/12/17 05:41 Toxic Granulation Not Reportable 12/12/17 05:41 Toxic Vacuolation Not Reportable 12/12/17 05:41 Dohle Bodies Not Reportable 12/12/17 05:41 Pelger-Huet Anomaly Not Reportable 12/12/17 05:41 Evangelina Rods Not Reportable 12/12/17 05:41 Platelet Estimate Consistent w auto 12/12/17 05:41 Clumped Platelets Not Reportable 12/12/17 05:41 Plt Clumps, EDTA Not Reportable 12/12/17 05:41 Large Platelets Not Reportable 12/12/17 05:41 Giant Platelets Not Reportable 12/12/17 05:41 Platelet Satelliting Not Reportable 12/12/17 05:41 Plt Morphology Comment Not Reportable 12/12/17 05:41 RBC Morphology Not Reportable 12/12/17 05:41 Dimorphic RBCs Not Reportable 12/12/17 05:41 Polychromasia 1+ 12/12/17 05:41 Hypochromasia Few 12/12/17 05:41 Poikilocytosis Not Reportable 12/12/17 05:41 Anisocytosis 1+ 12/12/17 05:41 Microcytosis Few 12/12/17 05:41 Macrocytosis Not Reportable 12/12/17 05:41 Spherocytes Not Reportable 12/12/17 05:41 Pappenheimer Bodies Not Reportable 12/12/17 05:41 Sickle Cells Not Reportable 12/12/17 05:41 Target Cells Not Reportable 12/12/17 05:41 Tear Drop Cells Not Reportable 12/12/17 05:41 Ovalocytes Not Reportable 12/12/17 05:41 Stomatocytes 1+ 12/12/17 05:41 Helmet Cells Not Reportable 12/12/17 05:41 [place] Bodies Not Reportable 12/12/17 05:41 Chemult Rings Not Reportable 12/12/17 05:41 Lucretia Cells Not Reportable 12/12/17 05:41 Bite Cells Not Reportable 12/12/17 05:41 Crenated Cell Not Reportable 12/12/17 05:41 Elliptocytes Not Reportable 12/12/17 05:41 Acanthocytes (Spur) Not Reportable 12/12/17 05:41 Rouleaux Not Reportable 12/12/17 05:41 Hemoglobin C Crystals Not Reportable 12/12/17 05:41 Schistocytes Not Reportable 12/12/17 05:41 Malaria parasites Not Reportable 12/12/17 05:41 [place] Bodies Not Reportable 12/12/17 05:41 Hem Pathologist Commnt No 12/12/17 05:41 PT 15.4 Sec. (12.2-14.9) H 12/14/17 05:11 INR 1.17 (0.87-1.13) H 12/14/17 05:11 APTT 33.8 Sec. (24.2-36.6) 11/26/17 06:29 POC ABG pH 7.505 (7.35-7.45) H 11/23/17 04:56 POC ABG pCO2 26.3 (35-45) L 11/23/17 04:56 POC ABG pO2 100 (80-105) 11/23/17 04:56 POC ABG HCO3 20.8 11/23/17 04:56 POC ABG Total CO2 22 11/23/17 04:56 POC ABG O2 Sat 98 11/23/17 04:56 POC ABG Base Excess -2 11/23/17 04:56 FiO2 30 % 11/23/17 04:56 Sodium 137 mmol/L (137-145) 12/18/17 00:50 Potassium 3.6 mmol/L (3.6-5.0) 12/18/17 00:50 Chloride 100.2 mmol/L (98-107) 12/18/17 00:50 Carbon Dioxide 27 mmol/L (22-30) 12/18/17 00:50 Anion Gap 13 mmol/L 12/18/17 00:50 BUN 22 mg/dL (9-20) H 12/18/17 00:50 Creatinine 1.6 mg/dL (0.8-1.5) H 12/18/17 00:50 Estimated GFR 52 ml/min 12/18/17 00:50 BUN/Creatinine Ratio 14 % 12/18/17 00:50 Glucose 113 mg/dL (75-100) H 12/18/17 00:50 POC Glucose 136 (70-105) H 12/18/17 12:00 Lactic Acid 1.80 mmol/L (0.7-2.0) 11/27/17 04:06 Calcium 7.8 mg/dL (8.4-10.2) L 12/18/17 00:50 Phosphorus 2.60 mg/dL (2.5-4.5) 12/11/17 15:26 Magnesium 1.50 mg/dL (1.7-2.3) L 12/18/17 00:50 Total Bilirubin 0.30 mg/dL (0.1-1.2) 12/17/17 05:08 AST 36 units/L (5-40) 12/17/17 05:08 ALT 16 units/L (7-56) 12/17/17 05:08 Alkaline Phosphatase 177 units/L (35-129) H 12/17/17 05:08 Total Creatine Kinase 84 units/L (55-170) 11/12/17 20:03 CK-MB (CK-2) < 1.0 ng/mL (0.0-4.0) 11/12/17 20:03 CK-MB (CK-2) Rel Index 1.1 (0-4) 11/12/17 20:03 Troponin T 0.098 ng/mL (0.00-0.029) H 11/12/17 Unknown C-Reactive Protein 25.70 mg/dL (0.00-1.30) H 11/11/17 23:20 NT-Pro-B Natriuret Pep 792.4 pg/mL (0-900) 11/11/17 23:20 Total Protein 6.4 g/dL (6.3-8.2) 12/17/17 05:08 Albumin 2.0 g/dL (3.9-5) L 12/17/17 05:08 Albumin/Globulin Ratio 0.5 % 12/17/17 05:08 Triglycerides 86 mg/dL (2-149) 11/11/17 23:20 Cholesterol 82 mg/dL (50-199) 11/11/17 23:20 LDL Cholesterol Direct 42 mg/dL (50-130) L 11/11/17 23:20 HDL Cholesterol 24 mg/dL (40-59) L 11/11/17 23:20 Cholesterol/HDL Ratio 3.41 % 11/11/17 23:20 Lipase 30 units/L (13-60) 11/11/17 23:20 Urine Color Nicole (Yellow) 11/11/17 23:09 Urine Turbidity Cloudy (Clear) 11/11/17 23:09 Urine pH 5.0 (5.0-7.0) 11/11/17 23:09 Ur Specific [place] 1.025 (1.003-1.030) 11/11/17 23:09 Urine Protein 100 mg/dl mg/dL (Negative) 11/11/17 23:09 Urine Glucose (UA) 50 mg/dL (Negative) 11/11/17 23:09 Urine Ketones Neg mg/dL (Negative) 11/11/17 23:09 Urine Blood Neg (Negative) 11/11/17 23:09 Urine Nitrite Neg (Negative) 11/11/17 23:09 Urine Bilirubin Neg (Negative) 11/11/17 23:09 Urine Urobilinogen 4.0 mg/dL (<2.0) 11/11/17 23:09 Ur Leukocyte Esterase Neg (Negative) 11/11/17 23:09 Urine WBC (Auto) 5.0 /HPF (0.0-6.0) 11/11/17 23:09 Urine RBC (Auto) 4.0 /HPF (0.0-6.0) 11/11/17 23:09 Urine Bacteria (Auto) 3+ /HPF (Negative) 11/11/17 23:09 Amorphous Crystals 3+ 11/11/17 23:09 Hyaline Casts 76 /LPF 11/11/17 23:09 Urine Mucus 2+ /HPF 11/11/17 23:09 Hepatitis A IgM Ab Non-reactive (NonReactive) 11/22/17 19:45 Hep Bs Antigen Non-reactive (Negative) 11/22/17 19:45 Hep B Core IgM Ab Non-reactive (NonReactive) 11/22/17 19:45 Hepatitis C Antibody Reactive (NonReactive) A 11/22/17 19:45 Blood Type A POSITIVE 12/16/17 13:01 Antibody Screen Negative 11/24/17 08:27 SANT[place] Antibody Screen Cancelled 12/16/17 13:01 Crossmatch See Detail 12/16/17 13:01 - Imaging and Cardiology Chest x-ray: report reviewed, image reviewed
[2017-12-19 01:03] LABS: Hemoglobin 6.1 gm/dl (11.8-15.2); Mean Corpuscular HGB Conc 32 % (32-34); Mean Corpuscular Volume 79 fl (84-94); Platelet Count 157 K/mm3 (140-440); Red Blood Count 2.41 M/mm3 (3.65-5.03); Red Cell Distribution Width 18.5 % (13.2-15.2)
[2017-12-19 01:05] LABS: Mean Corpuscular Hemoglobin 25 pg (28-32)
[2017-12-19 01:23] LABS: BUN/Creatinine Ratio 15; Blood Urea Nitrogen 17 mg/dL (9-20); Calcium 8.2 mg/dL (8.4-10.2); Hemolysis Index 4
[2017-12-19] MEDS ORDERED: NACL 0.9% 500 ML 500 ML ONE (02:10)
[2017-12-19 09:32] LABS: Basophils % (Auto) 0.3 % (0.0-1.8); Eosinophils % (Auto) 0.2 % (0.0-4.3); Hematocrit 22.6 % (35.5-45.6); Hemoglobin 7.2 gm/dl (11.8-15.2); Lymphocytes # (Auto) 0.8 K/mm3 (1.2-5.4); Lymphocytes % (Auto) 6.8 % (13.4-35.0); Mean Corpuscular HGB Conc 32 % (32-34); Mean Corpuscular Volume 79 fl (84-94); Monocytes # (Auto) 1.6 K/mm3 (0.0-0.8); Monocytes % (Auto) 12.6 % (0.0-7.3); Platelet Count 161 K/mm3 (140-440); Red Blood Count 2.86 M/mm3 (3.65-5.03); Red Cell Distribution Width 17.2 % (13.2-15.2)
[2017-12-19 09:36] LABS: Mean Corpuscular Hemoglobin 25 pg (28-32)
[2017-12-19 09:39] LABS: Alanine Aminotransferase 25 units/L (7-56); BUN/Creatinine Ratio 16; Blood Urea Nitrogen 22 mg/dL (9-20); Calcium 8.3 mg/dL (8.4-10.2); Hemolysis Index 4
[2017-12-19] MEDS: DIFLUCAN FEEDTUBE SCH (10:18)
[2017-12-19] MEDS: LOPRESSOR PO SCH ×2 (10:19→21:30)
[2017-12-19] MEDS: MERREM 1,000 MG in NACL 0.9% 100 ML IV SCH (10:19)
[2017-12-19] MEDS: PREVACID SOLUTAB FEEDTUBE SCH ×2 (10:19→21:30)
--- NOTE | 2017-12-19 11:13 | Progress Note ---
Assessment and Plan 67 y/o male with acute on chronic respiratory failure, now trached, with peritonitis from dislodged peg tube s/p 2 IR drains now with NGT feedings now spiking fevers again. No new recs for today. Please see below. 1. Trach Care 2. IV abx therapy per ID 3. Electrolytes per primary and renal 4. Will continue to follow along with you. Subjective Date of service: 12/19/17 Principal diagnosis: Acute hypoxic respiratory failure, s/p Trach Interval history: No acute events. Stable pulm status Objective Vital Signs - 12hr 12/18/17 12/19/17 12/19/17 23:47 00:00 01:00 Temperature 100.1 F H Pulse Rate 123 H 122 H Respiratory 34 H 21 Rate Blood Pressure 112/60 105/54 O2 Sat by Pulse 91 89 Oximetry O2 Sat by Pulse 99 Oximetry [ Assessment] 12/19/17 12/19/17 12/19/17 02:01 02:30 02:35 Temperature 98.5 F Pulse Rate 134 H 120 H Respiratory 60 H 26 H Rate Blood Pressure 134/66 116/73 O2 Sat by Pulse 85 Oximetry O2 Sat by Pulse 100 Oximetry [ Assessment] 12/19/17 12/19/17 12/19/17 02:45 03:00 03:15 Temperature 98.4 F 98.1 F Pulse Rate 102 H 117 H 122 H Respiratory 30 H 39 H 32 H Rate Blood Pressure 119/67 119/68 120/64 O2 Sat by Pulse 100 100 100 Oximetry O2 Sat by Pulse Oximetry [ Assessment] 12/19/17 12/19/17 12/19/17 03:45 04:00 04:15 Temperature 98.2 F 98.9 F 98.2 F Pulse Rate 115 H 115 H 114 H Respiratory 30 H 32 H 28 H Rate Blood Pressure 119/59 119/64 119/64 O2 Sat by Pulse 96 94 98 Oximetry O2 Sat by Pulse Oximetry [ Assessment] 12/19/17 12/19/17 12/19/17 05:00 08:00 10:19 Temperature 99.5 F Pulse Rate 126 H 112 H Respiratory 28 H Rate Blood Pressure 138/74 145/84 O2 Sat by Pulse 94 Oximetry O2 Sat by Pulse Oximetry [ Assessment] Constitutional: no acute distress, alert Eyes: non-icteric ENT: oropharynx moist Neck: supple (trach in position), no JVD Effort: normal Ascultation: Bilateral: clear, rhonchi (bilateral,post tussive), other (coarse BS bilaterally) Cardiovascular: regular rate and rhythm Gastrointestinal: normoactive bowel sounds, soft, non-tender, other (drainages in place) Integumentary: normal Extremities: no cyanosis, pink and warm, anasarca Neurologic: other (L hemiparesis,awake, response to my voice) Psychiatric: other (unable to assess) CBC and BMP: 12/19/17 09:00 12/19/17 09:00 ABG, PT/INR, D-dimer: ABG POC ABG pH 7.505 (7.35-7.45) H 11/23/17 04:56 POC ABG pCO2 26.3 (35-45) L 11/23/17 04:56 POC ABG pO2 100 (80-105) 11/23/17 04:56 POC ABG HCO3 20.8 11/23/17 04:56 POC ABG Total CO2 22 11/23/17 04:56 POC ABG O2 Sat 98 11/23/17 04:56 PT/INR, D-dimer PT 15.4 Sec. (12.2-14.9) H 12/14/17 05:11 INR 1.17 (0.87-1.13) H 12/14/17 05:11 Abnormal lab findings: Abnormal Labs 11/11/17 11/11/17 11/11/17 23:18 23:20 23:20 WBC RBC Hgb 10.4 L Hct 32.6 L D MCV MCH 27 L MCHC RDW 17.4 H Plt Count 105 L Lymph % (Auto) [place] % (Auto) Eos % (Auto) Lymph # [place] # Eos # Seg Neutrophils % Seg Neuts % (Manual) Lymphocytes % (Manual) 8.0 L Monocytes % (Manual) Eosinophils % (Manual) Nucleated RBC % 1.0 H Seg Neutrophils # Seg Neutrophils # Man Lymphocytes # (Manual) 0.7 L Monocytes # (Manual) Eosinophils # (Manual) PT INR POC ABG pH 7.550 H POC ABG pCO2 31.6 L POC ABG pO2 Sodium 146 H Potassium Chloride Carbon Dioxide BUN 26 H Creatinine 1.7 H D Glucose 133 H POC Glucose Lactic Acid Calcium Magnesium AST ALT Alkaline Phosphatase Troponin T 0.117 H* C-Reactive Protein Total Protein Albumin 2.5 L LDL Cholesterol Direct 42 L HDL Cholesterol 24 L Hepatitis C Antibody Crossmatch Crossmatch [facility] 11/11/17 11/12/17 11/12/17 23:20 00:23 00:23 WBC RBC Hgb Hct MCV MCH MCHC RDW Plt Count Lymph % (Auto) [place] % (Auto) Eos % (Auto) Lymph # [place] # Eos # Seg Neutrophils % Seg Neuts % (Manual) Lymphocytes % (Manual) Monocytes % (Manual) Eosinophils % (Manual) Nucleated RBC % Seg Neutrophils # Seg Neutrophils # Man Lymphocytes # (Manual) Monocytes # (Manual) Eosinophils # (Manual) PT 16.7 H INR 1.28 H POC ABG pH POC ABG pCO2 POC ABG pO2 Sodium Potassium Chloride Carbon Dioxide BUN Creatinine Glucose POC Glucose Lactic Acid 3.20 H* Calcium Magnesium AST ALT Alkaline Phosphatase Troponin T C-Reactive Protein 25.70 H Total Protein Albumin LDL Cholesterol Direct HDL Cholesterol Hepatitis C Antibody Crossmatch Crossmatch [place] 11/12/17 11/12/17 11/12/17 00:46 01:27 01:27 WBC RBC Hgb Hct MCV MCH MCHC RDW Plt Count Lymph % (Auto) [place] % (Auto) Eos % (Auto) Lymph # [place] # Eos # Seg Neutrophils % Seg Neuts % (Manual) Lymphocytes % (Manual) Monocytes % (Manual) Eosinophils % (Manual) Nucleated RBC % Seg Neutrophils # Seg Neutrophils # Man Lymphocytes # (Manual) Monocytes # (Manual) Eosinophils # (Manual) PT INR POC ABG pH 7.495 H POC ABG pCO2 32.0 L POC ABG pO2 64 L Sodium Potassium Chloride Carbon Dioxide BUN Creatinine Glucose POC Glucose Lactic Acid 3.70 H* Calcium Magnesium AST ALT Alkaline Phosphatase Troponin T 0.096 H C-Reactive Protein Total Protein Albumin LDL Cholesterol Direct HDL Cholesterol Hepatitis C Antibody Crossmatch Crossmatch [place] 11/12/17 11/12/17 11/12/17 03:21 04:50 06:27 WBC RBC Hgb Hct MCV MCH MCHC RDW Plt Count Lymph % (Auto) [place] % (Auto) Eos % (Auto) Lymph # [place] # Eos # Seg Neutrophils % Seg Neuts % (Manual) Lymphocytes % (Manual) Monocytes % (Manual) Eosinophils % (Manual) Nucleated RBC % Seg Neutrophils # Seg Neutrophils # Man Lymphocytes # (Manual) Monocytes # (Manual) Eosinophils # (Manual) PT INR POC ABG pH POC ABG pCO2 POC ABG pO2 109 H Sodium Potassium Chloride Carbon Dioxide BUN Creatinine Glucose POC Glucose Lactic Acid 3.80 H* 2.20 H* Calcium Magnesium AST ALT Alkaline Phosphatase Troponin T C-Reactive Protein Total Protein Albumin LDL Cholesterol Direct HDL Cholesterol Hepatitis C Antibody Crossmatch Crossmatch [place] 11/12/17 11/12/17 11/12/17 09:24 09:24 09:24 WBC RBC Hgb 10.4 L Hct 33.4 L MCV MCH MCHC RDW Plt Count Lymph % (Auto) [place] % (Auto) Eos % (Auto) Lymph # [place] # Eos # Seg Neutrophils % Seg Neuts % (Manual) Lymphocytes % (Manual) Monocytes % (Manual) Eosinophils % (Manual) Nucleated RBC % Seg Neutrophils # Seg Neutrophils # Man Lymphocytes # (Manual) Monocytes # (Manual) Eosinophils # (Manual) PT INR POC ABG pH POC ABG pCO2 POC ABG pO2 Sodium Potassium Chloride Carbon Dioxide BUN Creatinine Glucose POC Glucose Lactic Acid 2.90 H* Calcium Magnesium AST ALT Alkaline Phosphatase Troponin T 0.091 H C-Reactive Protein Total Protein Albumin LDL Cholesterol Direct HDL Cholesterol Hepatitis C Antibody Crossmatch Crossmatch [place] 11/12/17 11/12/17 11/12/17 12:56 20:03 Unknown WBC RBC Hgb Hct MCV MCH MCHC RDW Plt Count Lymph % (Auto) [place] % (Auto) Eos % (Auto) Lymph # [place] # Eos # Seg Neutrophils % Seg Neuts % (Manual) Lymphocytes % (Manual) Monocytes % (Manual) Eosinophils % (Manual) Nucleated RBC % Seg Neutrophils # Seg Neutrophils # Man Lymphocytes # (Manual) Monocytes # (Manual) Eosinophils # (Manual) PT INR POC ABG pH POC ABG pCO2 POC ABG pO2 Sodium Potassium Chloride Carbon Dioxide BUN Creatinine Glucose POC Glucose Lactic Acid 3.60 H* Calcium Magnesium AST ALT Alkaline Phosphatase Troponin T 0.102 H* 0.156 H* D C-Reactive Protein Total Protein Albumin LDL Cholesterol Direct HDL Cholesterol Hepatitis C Antibody Crossmatch Crossmatch [place] 11/12/17 11/13/17 11/13/17 Unknown 04:50 04:50 WBC 12.2 H RBC 3.51 L Hgb 9.3 L Hct 30.1 L MCV MCH 26 L MCHC 31 L RDW 18.0 H Plt Count 128 L Lymph % (Auto) 8.6 L [place] % (Auto) 11.1 H Eos % (Auto) Lymph # 1.1 L [place] # 1.4 H Eos # Seg Neutrophils % 80.1 H Seg Neuts % (Manual) Lymphocytes % (Manual) Monocytes % (Manual) Eosinophils % (Manual) Nucleated RBC % Seg Neutrophils # 9.8 H Seg Neutrophils # Man Lymphocytes # (Manual) Monocytes # (Manual) Eosinophils # (Manual) PT INR POC ABG pH POC ABG pCO2 POC ABG pO2 Sodium 149 H Potassium 5.1 H Chloride 114.4 H Carbon Dioxide 18 L BUN 52 H Creatinine 3.3 H D Glucose 129 H POC Glucose Lactic Acid Calcium 7.9 L Magnesium AST ALT Alkaline Phosphatase Troponin T 0.098 H C-Reactive Protein Total Protein Albumin LDL Cholesterol Direct HDL Cholesterol Hepatitis C Antibody Crossmatch Crossmatch [place] 11/13/17 11/13/17 11/14/17 04:51 09:34 04:21 WBC RBC Hgb Hct MCV MCH MCHC RDW Plt Count Lymph % (Auto) [place] % (Auto) Eos % (Auto) Lymph # [place] # Eos # Seg Neutrophils % Seg Neuts % (Manual) Lymphocytes % (Manual) Monocytes % (Manual) Eosinophils % (Manual) Nucleated RBC % Seg Neutrophils # Seg Neutrophils # Man Lymphocytes # (Manual) Monocytes # (Manual) Eosinophils # (Manual) PT INR POC ABG pH POC ABG pCO2 30.1 L 29.8 L POC ABG pO2 135 H Sodium Potassium Chloride Carbon Dioxide BUN Creatinine Glucose POC Glucose Lactic Acid 2.10 H* Calcium Magnesium AST ALT Alkaline Phosphatase Troponin T C-Reactive Protein Total Protein Albumin LDL Cholesterol Direct HDL Cholesterol Hepatitis C Antibody Crossmatch Crossmatch [place] 11/15/17 11/15/17 11/16/17 04:52 15:50 05:17 WBC RBC Hgb Hct MCV MCH MCHC RDW Plt Count Lymph % (Auto) [place] % (Auto) Eos % (Auto) Lymph # [place] # Eos # Seg Neutrophils % Seg Neuts % (Manual) Lymphocytes % (Manual) Monocytes % (Manual) Eosinophils % (Manual) Nucleated RBC % Seg Neutrophils # Seg Neutrophils # Man Lymphocytes # (Manual) Monocytes # (Manual) Eosinophils # (Manual) PT INR POC ABG pH POC ABG pCO2 29.5 L 31.5 L POC ABG pO2 115 H 122 H Sodium 154 H Potassium Chloride 117.9 H Carbon Dioxide 19 L BUN 87 H Creatinine 4.1 H Glucose POC Glucose Lactic Acid Calcium 8.1 L Magnesium AST ALT Alkaline Phosphatase Troponin T C-Reactive Protein Total Protein Albumin LDL Cholesterol Direct HDL Cholesterol Hepatitis C Antibody Crossmatch Crossmatch [place] 11/16/17 11/17/17 11/17/17 16:37 04:07 10:00 WBC 14.7 H RBC 3.23 L Hgb 8.3 L Hct 28.1 L MCV MCH 26 L MCHC 30 L RDW 18.8 H Plt Count Lymph % (Auto) [place] % (Auto) Eos % (Auto) Lymph # [place] # Eos # Seg Neutrophils % Seg Neuts % (Manual) 75 H Lymphocytes % (Manual) 8.0 L Monocytes % (Manual) Eosinophils % (Manual) Nucleated RBC % 1.0 H Seg Neutrophils # Seg Neutrophils # Man 11.0 H Lymphocytes # (Manual) Monocytes # (Manual) 0.9 H Eosinophils # (Manual) PT INR POC ABG pH POC ABG pCO2 POC ABG pO2 Sodium 153 H 155 H Potassium Chloride 117.3 H 119.4 H Carbon Dioxide 19 L 20 L BUN 90 H 89 H Creatinine 3.9 H 3.6 H Glucose 111 H 115 H POC Glucose Lactic Acid Calcium 8.1 L 8.0 L Magnesium AST ALT Alkaline Phosphatase Troponin T C-Reactive Protein Total Protein Albumin LDL Cholesterol Direct HDL Cholesterol Hepatitis C Antibody Crossmatch Crossmatch [place] 11/18/17 11/18/17 11/18/17 04:34 04:34 04:34 WBC 15.5 H RBC 3.13 L Hgb 8.1 L Hct 26.3 L MCV MCH 26 L MCHC 31 L RDW 18.6 H Plt Count Lymph % (Auto) [place] % (Auto) Eos % (Auto) Lymph # [place] # Eos # Seg Neutrophils % Seg Neuts % (Manual) 81.0 H Lymphocytes % (Manual) 7.0 L Monocytes % (Manual) Eosinophils % (Manual) Nucleated RBC % 1.0 H Seg Neutrophils # Seg Neutrophils # Man 12.6 H Lymphocytes # (Manual) 1.1 L Monocytes # (Manual) Eosinophils # (Manual) PT 16.7 H INR 1.30 H POC ABG pH POC ABG pCO2 POC ABG pO2 Sodium 155 H Potassium 3.2 L Chloride 121.0 H Carbon Dioxide 20 L BUN 74 H Creatinine 2.9 H Glucose 126 H POC Glucose Lactic Acid Calcium 7.9 L Magnesium AST ALT Alkaline Phosphatase Troponin T C-Reactive Protein Total Protein Albumin LDL Cholesterol Direct HDL Cholesterol Hepatitis C Antibody Crossmatch Crossmatch [place] 11/19/17 11/19/17 11/20/17 04:44 04:44 00:38 WBC 19.0 H 22.2 H RBC 3.20 L 3.17 L Hgb 8.4 L 7.9 L Hct 27.9 L 26.4 L MCV 83 L MCH 26 L 25 L MCHC 30 L 30 L RDW 19.1 H 18.9 H Plt Count Lymph % (Auto) [place] % (Auto) Eos % (Auto) Lymph # [place] # Eos # Seg Neutrophils % Seg Neuts % (Manual) 83.0 H Lymphocytes % (Manual) 3.0 L Monocytes % (Manual) 9.0 H Eosinophils % (Manual) Nucleated RBC % Seg Neutrophils # Seg Neutrophils # Man 18.4 H Lymphocytes # (Manual) 0.7 L Monocytes # (Manual) 2.0 H Eosinophils # (Manual) PT INR POC ABG pH POC ABG pCO2 POC ABG pO2 Sodium 152 H Potassium Chloride 117.1 H Carbon Dioxide 17 L BUN 66 H Creatinine 2.8 H Glucose 119 H POC Glucose Lactic Acid Calcium 7.8 L Magnesium 2.70 H AST ALT Alkaline Phosphatase Troponin T C-Reactive Protein Total Protein Albumin LDL Cholesterol Direct HDL Cholesterol Hepatitis C Antibody Crossmatch Crossmatch [place] 11/20/17 11/20/17 11/20/17 03:29 04:48 13:38 WBC RBC Hgb Hct MCV MCH MCHC RDW Plt Count Lymph % (Auto) [place] % (Auto) Eos % (Auto) Lymph # [place] # Eos # Seg Neutrophils % Seg Neuts % (Manual) Lymphocytes % (Manual) Monocytes % (Manual) Eosinophils % (Manual) Nucleated RBC % Seg Neutrophils # Seg Neutrophils # Man Lymphocytes # (Manual) Monocytes # (Manual) Eosinophils # (Manual) PT INR POC ABG pH POC ABG pCO2 29.4 L POC ABG pO2 Sodium 148 H Potassium 3.4 L Chloride 113.7 H Carbon Dioxide 18 L BUN 59 H Creatinine 2.7 H Glucose 113 H POC Glucose 128 H Lactic Acid Calcium 7.8 L Magnesium AST ALT Alkaline Phosphatase Troponin T C-Reactive Protein Total Protein Albumin LDL Cholesterol Direct HDL Cholesterol Hepatitis C Antibody Crossmatch Crossmatch [place] 11/20/17 11/20/17 11/21/17 17:38 23:40 00:13 WBC RBC Hgb 8.4 L Hct 28.0 L MCV MCH MCHC RDW Plt Count Lymph % (Auto) [place] % (Auto) Eos % (Auto) Lymph # [place] # Eos # Seg Neutrophils % Seg Neuts % (Manual) Lymphocytes % (Manual) Monocytes % (Manual) Eosinophils % (Manual) Nucleated RBC % Seg Neutrophils # Seg Neutrophils # Man Lymphocytes # (Manual) Monocytes # (Manual) Eosinophils # (Manual) PT INR POC ABG pH POC ABG pCO2 POC ABG pO2 Sodium Potassium Chloride Carbon Dioxide BUN Creatinine Glucose POC Glucose 115 H 145 H Lactic Acid Calcium Magnesium AST ALT Alkaline Phosphatase Troponin T C-Reactive Protein Total Protein Albumin LDL Cholesterol Direct HDL Cholesterol Hepatitis C Antibody Crossmatch Crossmatch [place] 11/21/17 11/21/17 11/21/17 04:30 04:30 04:58 WBC 21.0 H RBC Hgb 9.6 L Hct 32.7 L MCV MCH 25 L MCHC 29 L RDW 19.7 H Plt Count 746 H Lymph % (Auto) [place] % (Auto) Eos % (Auto) Lymph # [place] # Eos # Seg Neutrophils % Seg Neuts % (Manual) Lymphocytes % (Manual) Monocytes % (Manual) Eosinophils % (Manual) Nucleated RBC % Seg Neutrophils # Seg Neutrophils # Man Lymphocytes # (Manual) Monocytes # (Manual) Eosinophils # (Manual) PT INR POC ABG pH POC ABG pCO2 POC ABG pO2 Sodium Potassium Chloride 109.4 H Carbon Dioxide 14 L BUN 59 H Creatinine 3.0 H Glucose 137 H POC Glucose 132 H Lactic Acid Calcium 7.6 L Magnesium AST ALT Alkaline Phosphatase Troponin T C-Reactive Protein Total Protein Albumin LDL Cholesterol Direct HDL Cholesterol Hepatitis C Antibody Crossmatch Crossmatch [place] 11/21/17 11/21/17 11/21/17 06:30 13:43 14:17 WBC 38.2 H RBC Hgb 9.0 L Hct 32.3 L MCV MCH 25 L MCHC 28 L RDW 20.0 H Plt Count 766 H Lymph % (Auto) [place] % (Auto) Eos % (Auto) Lymph # [place] # Eos # Seg Neutrophils % Seg Neuts % (Manual) 85.0 H Lymphocytes % (Manual) 1.0 L Monocytes % (Manual) Eosinophils % (Manual) Nucleated RBC % 2.0 H Seg Neutrophils # Seg Neutrophils # Man 32.5 H Lymphocytes # (Manual) 0.4 L Monocytes # (Manual) 2.3 H Eosinophils # (Manual) PT INR POC ABG pH POC ABG pCO2 18.6 L POC ABG pO2 121 H Sodium 146 H Potassium Chloride 110.9 H Carbon Dioxide 11 L BUN 62 H Creatinine 4.0 H Glucose 64 L POC Glucose Lactic Acid Calcium 7.6 L Magnesium AST ALT Alkaline Phosphatase Troponin T C-Reactive Protein Total Protein Albumin LDL Cholesterol Direct HDL Cholesterol Hepatitis C Antibody Crossmatch Crossmatch [place] 11/21/17 11/21/17 11/22/17 14:17 19:09 00:05 WBC RBC Hgb Hct MCV MCH MCHC RDW Plt Count Lymph % (Auto) [place] % (Auto) Eos % (Auto) Lymph # [place] # Eos # Seg Neutrophils % Seg Neuts % (Manual) Lymphocytes % (Manual) Monocytes % (Manual) Eosinophils % (Manual) Nucleated RBC % Seg Neutrophils # Seg Neutrophils # Man Lymphocytes # (Manual) Monocytes # (Manual) Eosinophils # (Manual) PT INR POC ABG pH POC ABG pCO2 20.0 L POC ABG pO2 Sodium Potassium Chloride Carbon Dioxide BUN Creatinine Glucose POC Glucose 127 H Lactic Acid 7.70 H* Calcium Magnesium AST ALT Alkaline Phosphatase Troponin T C-Reactive Protein Total Protein Albumin LDL Cholesterol Direct HDL Cholesterol Hepatitis C Antibody Crossmatch Crossmatch [place] 11/22/17 11/22/17 11/22/17 03:53 06:00 07:25 WBC RBC Hgb Hct MCV MCH MCHC RDW Plt Count Lymph % (Auto) [place] % (Auto) Eos % (Auto) Lymph # [place] # Eos # Seg Neutrophils % Seg Neuts % (Manual) Lymphocytes % (Manual) Monocytes % (Manual) Eosinophils % (Manual) Nucleated RBC % Seg Neutrophils # Seg Neutrophils # Man Lymphocytes # (Manual) Monocytes # (Manual) Eosinophils # (Manual) PT INR POC ABG pH POC ABG pCO2 22.2 L POC ABG pO2 Sodium 147 H Potassium Chloride 111.9 H Carbon Dioxide 16 L BUN 72 H Creatinine 5.1 H Glucose 181 H POC Glucose 180 H Lactic Acid Calcium 7.1 L Magnesium AST ALT Alkaline Phosphatase Troponin T C-Reactive Protein Total Protein Albumin LDL Cholesterol Direct HDL Cholesterol Hepatitis C Antibody Crossmatch Crossmatch [place] 11/22/17 11/22/17 11/22/17 07:25 07:25 12:05 WBC 31.4 H RBC 3.22 L Hgb 8.0 L Hct 26.7 L MCV 83 L MCH 25 L MCHC 30 L RDW 19.4 H Plt Count 602 H Lymph % (Auto) [place] % (Auto) Eos % (Auto) Lymph # [place] # Eos # Seg Neutrophils % Seg Neuts % (Manual) Lymphocytes % (Manual) Monocytes % (Manual) Eosinophils % (Manual) Nucleated RBC % Seg Neutrophils # Seg Neutrophils # Man Lymphocytes # (Manual) Monocytes # (Manual) Eosinophils # (Manual) PT INR POC ABG pH POC ABG pCO2 POC ABG pO2 Sodium Potassium Chloride Carbon Dioxide BUN Creatinine Glucose POC Glucose 182 H Lactic Acid 5.00 H* Calcium Magnesium AST ALT Alkaline Phosphatase Troponin T C-Reactive Protein Total Protein Albumin LDL Cholesterol Direct HDL Cholesterol Hepatitis C Antibody Crossmatch Crossmatch [place] 11/22/17 11/23/17 11/23/17 19:45 01:28 04:56 WBC RBC Hgb Hct MCV MCH MCHC RDW Plt Count Lymph % (Auto) [place] % (Auto) Eos % (Auto) Lymph # [place] # Eos # Seg Neutrophils % Seg Neuts % (Manual) Lymphocytes % (Manual) Monocytes % (Manual) Eosinophils % (Manual) Nucleated RBC % Seg Neutrophils # Seg Neutrophils # Man Lymphocytes # (Manual) Monocytes # (Manual) Eosinophils # (Manual) PT INR POC ABG pH 7.505 H POC ABG pCO2 26.3 L POC ABG pO2 Sodium Potassium Chloride Carbon Dioxide BUN Creatinine Glucose POC Glucose 165 H Lactic Acid Calcium Magnesium AST ALT Alkaline Phosphatase Troponin T C-Reactive Protein Total Protein Albumin LDL Cholesterol Direct HDL Cholesterol Hepatitis C Antibody Reactive A Crossmatch Crossmatch [place] 11/23/17 11/23/17 11/23/17 07:05 12:32 17:53 WBC RBC Hgb Hct MCV MCH MCHC RDW Plt Count Lymph % (Auto) [place] % (Auto) Eos % (Auto) Lymph # [place] # Eos # Seg Neutrophils % Seg Neuts % (Manual) Lymphocytes % (Manual) Monocytes % (Manual) Eosinophils % (Manual) Nucleated RBC % Seg Neutrophils # Seg Neutrophils # Man Lymphocytes # (Manual) Monocytes # (Manual) Eosinophils # (Manual) PT INR POC ABG pH POC ABG pCO2 POC ABG pO2 Sodium Potassium Chloride Carbon Dioxide 18 L BUN 61 H Creatinine 4.2 H Glucose 153 H POC Glucose 138 H 173 H Lactic Acid Calcium 7.5 L Magnesium AST ALT Alkaline Phosphatase Troponin T C-Reactive Protein Total Protein Albumin LDL Cholesterol Direct HDL Cholesterol Hepatitis C Antibody Crossmatch Crossmatch [place] 11/23/17 11/24/17 11/24/17 23:41 05:42 05:42 WBC 21.5 H RBC 2.48 L Hgb 6.2 L Hct 20.3 L D MCV 82 L MCH 25 L MCHC 31 L RDW 18.9 H Plt Count Lymph % (Auto) [place] % (Auto) Eos % (Auto) Lymph # [place] # Eos # Seg Neutrophils % Seg Neuts % (Manual) 94.0 H Lymphocytes % (Manual) 3.0 L Monocytes % (Manual) Eosinophils % (Manual) Nucleated RBC % Seg Neutrophils # Seg Neutrophils # Man 20.2 H Lymphocytes # (Manual) 0.6 L Monocytes # (Manual) Eosinophils # (Manual) PT INR POC ABG pH POC ABG pCO2 POC ABG pO2 Sodium 149 H Potassium 2.8 L* D Chloride 113.9 H Carbon Dioxide 19 L BUN 31 H Creatinine 2.3 H Glucose 103 H POC Glucose 133 H Lactic Acid Calcium 5.3 L* D Magnesium 1.30 L AST ALT Alkaline Phosphatase Troponin T C-Reactive Protein Total Protein Albumin LDL Cholesterol Direct HDL Cholesterol Hepatitis C Antibody Crossmatch Crossmatch [place] 11/24/17 11/24/17 11/24/17 05:42 08:27 08:27 WBC RBC Hgb Hct MCV MCH MCHC RDW Plt Count Lymph % (Auto) [place] % (Auto) Eos % (Auto) Lymph # [place] # Eos # Seg Neutrophils % Seg Neuts % (Manual) Lymphocytes % (Manual) Monocytes % (Manual) Eosinophils % (Manual) Nucleated RBC % Seg Neutrophils # Seg Neutrophils # Man Lymphocytes # (Manual) Monocytes # (Manual) Eosinophils # (Manual) PT INR POC ABG pH POC ABG pCO2 POC ABG pO2 Sodium Potassium Chloride Carbon Dioxide BUN Creatinine Glucose POC Glucose Lactic Acid 5.40 H* 5.20 H* Calcium Magnesium AST ALT Alkaline Phosphatase Troponin T C-Reactive Protein Total Protein Albumin LDL Cholesterol Direct HDL Cholesterol Hepatitis C Antibody Crossmatch See Detail Crossmatch [facility] 11/24/17 11/24/17 11/24/17 12:13 17:22 21:53 WBC 23.0 H RBC 3.32 L Hgb 8.8 L Hct 27.1 L D MCV 82 L MCH 26 L MCHC RDW 17.3 H Plt Count Lymph % (Auto) [place] % (Auto) Eos % (Auto) Lymph # [place] # Eos # Seg Neutrophils % Seg Neuts % (Manual) Lymphocytes % (Manual) Monocytes % (Manual) Eosinophils % (Manual) Nucleated RBC % Seg Neutrophils # Seg Neutrophils # Man Lymphocytes # (Manual) Monocytes # (Manual) Eosinophils # (Manual) PT INR POC ABG pH POC ABG pCO2 POC ABG pO2 Sodium Potassium Chloride Carbon Dioxide BUN Creatinine Glucose POC Glucose 138 H 180 H Lactic Acid Calcium Magnesium AST ALT Alkaline Phosphatase Troponin T C-Reactive Protein Total Protein Albumin LDL Cholesterol Direct HDL Cholesterol Hepatitis C Antibody Crossmatch Crossmatch [place] 11/24/17 11/24/17 11/25/17 21:53 23:28 04:19 WBC RBC Hgb Hct MCV MCH MCHC RDW Plt Count Lymph % (Auto) [place] % (Auto) Eos % (Auto) Lymph # [place] # Eos # Seg Neutrophils % Seg Neuts % (Manual) Lymphocytes % (Manual) Monocytes % (Manual) Eosinophils % (Manual) Nucleated RBC % Seg Neutrophils # Seg Neutrophils # Man Lymphocytes # (Manual) Monocytes # (Manual) Eosinophils # (Manual) PT INR POC ABG pH POC ABG pCO2 POC ABG pO2 Sodium Potassium Chloride 96.3 L Carbon Dioxide BUN 28 H 31 H Creatinine 2.3 H 2.6 H Glucose 125 H 101 H POC Glucose 111 H Lactic Acid Calcium 7.5 L D 7.4 L Magnesium AST 170 H ALT 179 H Alkaline Phosphatase 175 H Troponin T C-Reactive Protein Total Protein 5.5 L Albumin 1.8 L LDL Cholesterol Direct HDL Cholesterol Hepatitis C Antibody Crossmatch Crossmatch [facility] 11/25/17 11/25/17 11/26/17 04:19 04:19 06:29 WBC 22.5 H RBC 3.48 L Hgb 9.1 L Hct 28.3 L MCV 81 L MCH 26 L MCHC RDW 17.4 H Plt Count Lymph % (Auto) [place] % (Auto) Eos % (Auto) Lymph # [place] # Eos # Seg Neutrophils % Seg Neuts % (Manual) Lymphocytes % (Manual) Monocytes % (Manual) Eosinophils % (Manual) Nucleated RBC % Seg Neutrophils # Seg Neutrophils # Man Lymphocytes # (Manual) Monocytes # (Manual) Eosinophils # (Manual) PT 23.6 H INR 1.96 H POC ABG pH POC ABG pCO2 POC ABG pO2 Sodium Potassium Chloride Carbon Dioxide BUN 31 H Creatinine 2.6 H Glucose 101 H POC Glucose Lactic Acid Calcium 7.5 L Magnesium AST ALT Alkaline Phosphatase Troponin T C-Reactive Protein Total Protein Albumin LDL Cholesterol Direct HDL Cholesterol Hepatitis C Antibody Crossmatch Crossmatch [facility] 11/26/17 11/27/17 11/27/17 06:34 04:06 04:06 WBC 11.3 H RBC 3.13 L Hgb 8.4 L Hct 25.8 L MCV 82 L MCH 27 L MCHC RDW 17.7 H Plt Count Lymph % (Auto) 7.4 L [place] % (Auto) Eos % (Auto) Lymph # 0.8 L [place] # Eos # Seg Neutrophils % 83.7 H Seg Neuts % (Manual) Lymphocytes % (Manual) Monocytes % (Manual) Eosinophils % (Manual) Nucleated RBC % Seg Neutrophils # 9.5 H Seg Neutrophils # Man Lymphocytes # (Manual) Monocytes # (Manual) Eosinophils # (Manual) PT INR POC ABG pH POC ABG pCO2 POC ABG pO2 Sodium Potassium Chloride 97.9 L Carbon Dioxide BUN 43 H 29 H Creatinine 3.5 H 2.9 H Glucose POC Glucose Lactic Acid Calcium 7.5 L 8.1 L Magnesium AST ALT Alkaline Phosphatase Troponin T C-Reactive Protein Total Protein Albumin LDL Cholesterol Direct HDL Cholesterol Hepatitis C Antibody Crossmatch Crossmatch [place] 11/27/17 11/28/17 11/28/17 18:11 00:16 03:50 WBC RBC Hgb Hct MCV MCH MCHC RDW Plt Count Lymph % (Auto) [place] % (Auto) Eos % (Auto) Lymph # [place] # Eos # Seg Neutrophils % Seg Neuts % (Manual) Lymphocytes % (Manual) Monocytes % (Manual) Eosinophils % (Manual) Nucleated RBC % Seg Neutrophils # Seg Neutrophils # Man Lymphocytes # (Manual) Monocytes # (Manual) Eosinophils # (Manual) PT INR POC ABG pH POC ABG pCO2 POC ABG pO2 Sodium Potassium Chloride Carbon Dioxide BUN 39 H Creatinine 4.1 H Glucose 108 H POC Glucose 110 H 124 H Lactic Acid Calcium 7.9 L Magnesium AST ALT Alkaline Phosphatase Troponin T C-Reactive Protein Total Protein Albumin LDL Cholesterol Direct HDL Cholesterol Hepatitis C Antibody Crossmatch Crossmatch [facility] 11/28/17 11/28/17 11/28/17 05:03 11:36 17:42 WBC RBC Hgb Hct MCV MCH MCHC RDW Plt Count Lymph % (Auto) [place] % (Auto) Eos % (Auto) Lymph # [place] # Eos # Seg Neutrophils % Seg Neuts % (Manual) Lymphocytes % (Manual) Monocytes % (Manual) Eosinophils % (Manual) Nucleated RBC % Seg Neutrophils # Seg Neutrophils # Man Lymphocytes # (Manual) Monocytes # (Manual) Eosinophils # (Manual) PT INR POC ABG pH POC ABG pCO2 POC ABG pO2 Sodium Potassium Chloride Carbon Dioxide BUN Creatinine Glucose POC Glucose 134 H 114 H 119 H Lactic Acid Calcium Magnesium AST ALT Alkaline Phosphatase Troponin T C-Reactive Protein Total Protein Albumin LDL Cholesterol Direct HDL Cholesterol Hepatitis C Antibody Crossmatch Crossmatch [facility] 11/29/17 11/29/17 11/29/17 00:22 05:25 05:25 WBC 12.3 H RBC 3.34 L Hgb 8.6 L Hct 27.3 L MCV 82 L MCH 26 L MCHC RDW 18.5 H Plt Count Lymph % (Auto) 3.7 L [place] % (Auto) 7.7 H Eos % (Auto) Lymph # 0.5 L [place] # 1.0 H Eos # Seg Neutrophils % 86.5 H Seg Neuts % (Manual) Lymphocytes % (Manual) Monocytes % (Manual) Eosinophils % (Manual) Nucleated RBC % Seg Neutrophils # 10.7 H Seg Neutrophils # Man Lymphocytes # (Manual) Monocytes # (Manual) Eosinophils # (Manual) PT INR POC ABG pH POC ABG pCO2 POC ABG pO2 Sodium Potassium Chloride Carbon Dioxide BUN 29 H Creatinine 3.5 H Glucose 109 H POC Glucose 137 H Lactic Acid Calcium 7.8 L Magnesium AST ALT Alkaline Phosphatase Troponin T C-Reactive Protein Total Protein Albumin LDL Cholesterol Direct HDL Cholesterol Hepatitis C Antibody Crossmatch Crossmatch [facility] 11/29/17 11/30/17 11/30/17 05:26 00:26 04:17 WBC RBC Hgb Hct MCV MCH MCHC RDW Plt Count Lymph % (Auto) [place] % (Auto) Eos % (Auto) Lymph # [place] # Eos # Seg Neutrophils % Seg Neuts % (Manual) Lymphocytes % (Manual) Monocytes % (Manual) Eosinophils % (Manual) Nucleated RBC % Seg Neutrophils # Seg Neutrophils # Man Lymphocytes # (Manual) Monocytes # (Manual) Eosinophils # (Manual) PT INR POC ABG pH POC ABG pCO2 POC ABG pO2 Sodium Potassium Chloride Carbon Dioxide BUN 38 H Creatinine 4.3 H Glucose 109 H POC Glucose 129 H 152 H Lactic Acid Calcium 7.8 L Magnesium AST ALT Alkaline Phosphatase Troponin T C-Reactive Protein Total Protein Albumin LDL Cholesterol Direct HDL Cholesterol Hepatitis C Antibody Crossmatch Crossmatch [facility] 11/30/17 11/30/17 11/30/17 12:17 16:23 23:35 WBC RBC Hgb Hct MCV MCH MCHC RDW Plt Count Lymph % (Auto) [place] % (Auto) Eos % (Auto) Lymph # [place] # Eos # Seg Neutrophils % Seg Neuts % (Manual) Lymphocytes % (Manual) Monocytes % (Manual) Eosinophils % (Manual) Nucleated RBC % Seg Neutrophils # Seg Neutrophils # Man Lymphocytes # (Manual) Monocytes # (Manual) Eosinophils # (Manual) PT INR POC ABG pH POC ABG pCO2 POC ABG pO2 Sodium Potassium Chloride Carbon Dioxide BUN Creatinine Glucose POC Glucose 170 H 114 H 122 H Lactic Acid Calcium Magnesium AST ALT Alkaline Phosphatase Troponin T C-Reactive Protein Total Protein Albumin LDL Cholesterol Direct HDL Cholesterol Hepatitis C Antibody Crossmatch Crossmatch [facility] 12/01/17 12/01/17 12/01/17 04:09 04:09 12:17 WBC 14.1 H RBC 3.32 L Hgb 8.6 L Hct 27.0 L MCV 81 L MCH 26 L MCHC RDW 18.7 H Plt Count Lymph % (Auto) 5.5 L [place] % (Auto) 9.7 H Eos % (Auto) Lymph # 0.8 L [place] # 1.4 H Eos # Seg Neutrophils % 82.9 H Seg Neuts % (Manual) Lymphocytes % (Manual) Monocytes % (Manual) Eosinophils % (Manual) Nucleated RBC % Seg Neutrophils # 11.7 H Seg Neutrophils # Man Lymphocytes # (Manual) Monocytes # (Manual) Eosinophils # (Manual) PT INR POC ABG pH POC ABG pCO2 POC ABG pO2 Sodium Potassium 3.4 L Chloride Carbon Dioxide BUN 21 H Creatinine 3.0 H Glucose 108 H POC Glucose 126 H Lactic Acid Calcium 8.0 L Magnesium AST ALT Alkaline Phosphatase Troponin T C-Reactive Protein Total Protein Albumin LDL Cholesterol Direct HDL Cholesterol Hepatitis C Antibody Crossmatch Crossmatch [facility] 12/02/17 12/03/17 12/03/17 23:46 02:52 05:54 WBC 17.2 H RBC 3.21 L Hgb 8.5 L Hct 25.8 L MCV 80 L MCH 26 L MCHC RDW 18.4 H Plt Count 128 L Lymph % (Auto) [place] % (Auto) Eos % (Auto) Lymph # [place] # Eos # Seg Neutrophils % Seg Neuts % (Manual) Lymphocytes % (Manual) Monocytes % (Manual) Eosinophils % (Manual) Nucleated RBC % Seg Neutrophils # Seg Neutrophils # Man Lymphocytes # (Manual) Monocytes # (Manual) Eosinophils # (Manual) PT INR POC ABG pH POC ABG pCO2 POC ABG pO2 Sodium Potassium Chloride Carbon Dioxide BUN Creatinine Glucose POC Glucose 125 H 107 H Lactic Acid Calcium Magnesium AST ALT Alkaline Phosphatase Troponin T C-Reactive Protein Total Protein Albumin LDL Cholesterol Direct HDL Cholesterol Hepatitis C Antibody Crossmatch Crossmatch [facility] 12/03/17 12/03/17 12/04/17 12:05 Unknown 12:26 WBC RBC Hgb Hct MCV MCH MCHC RDW Plt Count Lymph % (Auto) [place] % (Auto) Eos % (Auto) Lymph # [place] # Eos # Seg Neutrophils % Seg Neuts % (Manual) Lymphocytes % (Manual) Monocytes % (Manual) Eosinophils % (Manual) Nucleated RBC % Seg Neutrophils # Seg Neutrophils # Man Lymphocytes # (Manual) Monocytes # (Manual) Eosinophils # (Manual) PT INR POC ABG pH POC ABG pCO2 POC ABG pO2 Sodium Potassium Chloride Carbon Dioxide BUN 21 H Creatinine 2.8 H Glucose 113 H POC Glucose 106 H 119 H Lactic Acid Calcium Magnesium AST ALT Alkaline Phosphatase Troponin T C-Reactive Protein Total Protein Albumin LDL Cholesterol Direct HDL Cholesterol Hepatitis C Antibody Crossmatch Crossmatch [facility] 12/04/17 12/05/17 12/05/17 17:57 00:52 04:05 WBC RBC 2.96 L Hgb 7.7 L Hct 24.2 L MCV 82 L MCH 26 L MCHC RDW 18.8 H Plt Count 105 L Lymph % (Auto) 10.6 L [place] % (Auto) 12.1 H Eos % (Auto) 5.2 H Lymph # 1.1 L [place] # 1.3 H Eos # 0.5 H Seg Neutrophils % 71.3 H Seg Neuts % (Manual) Lymphocytes % (Manual) Monocytes % (Manual) Eosinophils % (Manual) Nucleated RBC % Seg Neutrophils # Seg Neutrophils # Man Lymphocytes # (Manual) Monocytes # (Manual) Eosinophils # (Manual) PT INR POC ABG pH POC ABG pCO2 POC ABG pO2 Sodium Potassium Chloride Carbon Dioxide BUN Creatinine Glucose POC Glucose 140 H 117 H Lactic Acid Calcium Magnesium AST ALT Alkaline Phosphatase Troponin T C-Reactive Protein Total Protein Albumin LDL Cholesterol Direct HDL Cholesterol Hepatitis C Antibody Crossmatch Crossmatch [facility] 12/05/17 12/05/17 12/06/17 04:05 22:50 08:18 WBC RBC 2.80 L Hgb 7.4 L Hct 23.0 L MCV 82 L MCH 27 L MCHC RDW 19.5 H Plt Count 125 L Lymph % (Auto) [place] % (Auto) Eos % (Auto) Lymph # [place] # Eos # Seg Neutrophils % Seg Neuts % (Manual) Lymphocytes % (Manual) Monocytes % (Manual) Eosinophils % (Manual) Nucleated RBC % Seg Neutrophils # Seg Neutrophils # Man Lymphocytes # (Manual) Monocytes # (Manual) Eosinophils # (Manual) PT INR POC ABG pH POC ABG pCO2 POC ABG pO2 Sodium Potassium Chloride 107.4 H Carbon Dioxide BUN Creatinine 2.5 H Glucose POC Glucose 112 H Lactic Acid Calcium 8.3 L Magnesium AST ALT Alkaline Phosphatase Troponin T C-Reactive Protein Total Protein Albumin LDL Cholesterol Direct HDL Cholesterol Hepatitis C Antibody Crossmatch Crossmatch [facility] 12/06/17 12/06/17 12/06/17 08:18 12:01 23:58 WBC RBC Hgb Hct MCV MCH MCHC RDW Plt Count Lymph % (Auto) [place] % (Auto) Eos % (Auto) Lymph # [place] # Eos # Seg Neutrophils % Seg Neuts % (Manual) Lymphocytes % (Manual) Monocytes % (Manual) Eosinophils % (Manual) Nucleated RBC % Seg Neutrophils # Seg Neutrophils # Man Lymphocytes # (Manual) Monocytes # (Manual) Eosinophils # (Manual) PT INR POC ABG pH POC ABG pCO2 POC ABG pO2 Sodium Potassium Chloride 108.4 H Carbon Dioxide BUN 28 H Creatinine 3.7 H Glucose 103 H POC Glucose 106 H 108 H Lactic Acid Calcium 8.0 L Magnesium AST ALT Alkaline Phosphatase Troponin T C-Reactive Protein Total Protein Albumin LDL Cholesterol Direct HDL Cholesterol Hepatitis C Antibody Crossmatch Crossmatch [facility] 12/07/17 12/07/17 12/07/17 05:47 05:47 18:03 WBC RBC 2.79 L Hgb 7.3 L Hct 22.8 L MCV 82 L MCH 26 L MCHC RDW 19.1 H Plt Count 101 L Lymph % (Auto) [place] % (Auto) Eos % (Auto) Lymph # [place] # Eos # Seg Neutrophils % Seg Neuts % (Manual) 72.0 H Lymphocytes % (Manual) 13.0 L Monocytes % (Manual) Eosinophils % (Manual) 9.0 H Nucleated RBC % Seg Neutrophils # Seg Neutrophils # Man Lymphocytes # (Manual) 1.1 L Monocytes # (Manual) Eosinophils # (Manual) 0.8 H PT INR POC ABG pH POC ABG pCO2 POC ABG pO2 Sodium 146 H Potassium Chloride 109.8 H Carbon Dioxide BUN 36 H Creatinine 4.0 H Glucose POC Glucose 143 H Lactic Acid Calcium 8.0 L Magnesium AST ALT Alkaline Phosphatase Troponin T C-Reactive Protein Total Protein Albumin LDL Cholesterol Direct HDL Cholesterol Hepatitis C Antibody Crossmatch Crossmatch [facility] 12/07/17 12/08/17 12/08/17 23:33 05:10 05:10 WBC RBC 2.91 L Hgb 7.5 L Hct 24.4 L MCV MCH 26 L MCHC 31 L RDW 19.7 H Plt Count 109 L Lymph % (Auto) [place] % (Auto) Eos % (Auto) Lymph # [place] # Eos # Seg Neutrophils % Seg Neuts % (Manual) Lymphocytes % (Manual) 11.0 L Monocytes % (Manual) Eosinophils % (Manual) 12.0 H Nucleated RBC % Seg Neutrophils # Seg Neutrophils # Man Lymphocytes # (Manual) 0.7 L Monocytes # (Manual) Eosinophils # (Manual) 0.7 H PT INR POC ABG pH POC ABG pCO2 POC ABG pO2 Sodium 147 H Potassium Chloride 110.4 H Carbon Dioxide BUN Creatinine 2.8 H Glucose POC Glucose 107 H Lactic Acid Calcium 7.8 L Magnesium AST ALT Alkaline Phosphatase Troponin T C-Reactive Protein Total Protein Albumin LDL Cholesterol Direct HDL Cholesterol Hepatitis C Antibody Crossmatch Crossmatch [facility] 12/09/17 12/09/17 12/09/17 04:18 04:18 12:16 WBC RBC Hgb 7.2 L Hct 23.2 L MCV MCH MCHC RDW Plt Count Lymph % (Auto) [place] % (Auto) Eos % (Auto) Lymph # [place] # Eos # Seg Neutrophils % Seg Neuts % (Manual) Lymphocytes % (Manual) Monocytes % (Manual) Eosinophils % (Manual) Nucleated RBC % Seg Neutrophils # Seg Neutrophils # Man Lymphocytes # (Manual) Monocytes # (Manual) Eosinophils # (Manual) PT INR POC ABG pH POC ABG pCO2 POC ABG pO2 Sodium 150 H Potassium Chloride 114.5 H Carbon Dioxide BUN 25 H Creatinine 3.3 H Glucose POC Glucose 142 H Lactic Acid Calcium 7.7 L Magnesium AST ALT Alkaline Phosphatase Troponin T C-Reactive Protein Total Protein Albumin LDL Cholesterol Direct HDL Cholesterol Hepatitis C Antibody Crossmatch Crossmatch [facility] 12/10/17 12/10/17 12/11/17 05:14 05:14 12:05 WBC RBC 2.81 L Hgb 7.4 L Hct 23.9 L MCV MCH 26 L MCHC 31 L RDW 19.1 H Plt Count 128 L Lymph % (Auto) [place] % (Auto) Eos % (Auto) Lymph # [place] # Eos # Seg Neutrophils % Seg Neuts % (Manual) 78.0 H Lymphocytes % (Manual) 8.0 L Monocytes % (Manual) Eosinophils % (Manual) 5.0 H Nucleated RBC % Seg Neutrophils # Seg Neutrophils # Man Lymphocytes # (Manual) 0.6 L Monocytes # (Manual) Eosinophils # (Manual) PT INR POC ABG pH POC ABG pCO2 POC ABG pO2 Sodium Potassium Chloride Carbon Dioxide BUN Creatinine 2.2 H Glucose POC Glucose 127 H Lactic Acid Calcium 7.8 L Magnesium AST ALT Alkaline Phosphatase Troponin T C-Reactive Protein Total Protein Albumin LDL Cholesterol Direct HDL Cholesterol Hepatitis C Antibody Crossmatch Crossmatch [facility] 12/11/17 12/11/17 12/11/17 15:26 18:36 23:40 WBC RBC Hgb Hct MCV MCH MCHC RDW Plt Count Lymph % (Auto) [place] % (Auto) Eos % (Auto) Lymph # [place] # Eos # Seg Neutrophils % Seg Neuts % (Manual) Lymphocytes % (Manual) Monocytes % (Manual) Eosinophils % (Manual) Nucleated RBC % Seg Neutrophils # Seg Neutrophils # Man Lymphocytes # (Manual) Monocytes # (Manual) Eosinophils # (Manual) PT INR POC ABG pH POC ABG pCO2 POC ABG pO2 Sodium Potassium 3.3 L Chloride Carbon Dioxide BUN Creatinine 1.6 H Glucose POC Glucose 106 H 110 H Lactic Acid Calcium 7.6 L Magnesium AST ALT Alkaline Phosphatase Troponin T C-Reactive Protein Total Protein Albumin LDL Cholesterol Direct HDL Cholesterol Hepatitis C Antibody Crossmatch Crossmatch [facility] 12/12/17 12/12/17 12/12/17 05:10 05:41 05:41 WBC RBC 3.17 L Hgb 8.1 L Hct 25.7 L MCV 81 L MCH 25 L MCHC 31 L RDW 19.2 H Plt Count Lymph % (Auto) [place] % (Auto) Eos % (Auto) Lymph # [place] # Eos # Seg Neutrophils % Seg Neuts % (Manual) 74.0 H Lymphocytes % (Manual) 6.0 L Monocytes % (Manual) Eosinophils % (Manual) 9.0 H Nucleated RBC % Seg Neutrophils # Seg Neutrophils # Man Lymphocytes # (Manual) 0.6 L Monocytes # (Manual) Eosinophils # (Manual) 0.9 H PT INR POC ABG pH POC ABG pCO2 POC ABG pO2 Sodium Potassium 3.5 L Chloride Carbon Dioxide BUN Creatinine 2.3 H Glucose 113 H POC Glucose 112 H Lactic Acid Calcium 7.5 L Magnesium AST ALT Alkaline Phosphatase Troponin T C-Reactive Protein Total Protein Albumin LDL Cholesterol Direct HDL Cholesterol Hepatitis C Antibody Crossmatch Crossmatch [facility] 12/13/17 12/13/17 12/13/17 06:14 12:00 17:37 WBC RBC Hgb Hct MCV MCH MCHC RDW Plt Count Lymph % (Auto) [place] % (Auto) Eos % (Auto) Lymph # [place] # Eos # Seg Neutrophils % Seg Neuts % (Manual) Lymphocytes % (Manual) Monocytes % (Manual) Eosinophils % (Manual) Nucleated RBC % Seg Neutrophils # Seg Neutrophils # Man Lymphocytes # (Manual) Monocytes # (Manual) Eosinophils # (Manual) PT INR POC ABG pH POC ABG pCO2 POC ABG pO2 Sodium Potassium Chloride Carbon Dioxide BUN Creatinine Glucose POC Glucose 130 H 133 H 136 H Lactic Acid Calcium Magnesium AST ALT Alkaline Phosphatase Troponin T C-Reactive Protein Total Protein Albumin LDL Cholesterol Direct HDL Cholesterol Hepatitis C Antibody Crossmatch Crossmatch [place] 12/13/17 12/14/17 12/14/17 23:39 05:11 05:11 WBC RBC Hgb Hct MCV MCH MCHC RDW Plt Count Lymph % (Auto) [place] % (Auto) Eos % (Auto) Lymph # [place] # Eos # Seg Neutrophils % Seg Neuts % (Manual) Lymphocytes % (Manual) Monocytes % (Manual) Eosinophils % (Manual) Nucleated RBC % Seg Neutrophils # Seg Neutrophils # Man Lymphocytes # (Manual) Monocytes # (Manual) Eosinophils # (Manual) PT 15.4 H INR 1.17 H POC ABG pH POC ABG pCO2 POC ABG pO2 Sodium Potassium Chloride Carbon Dioxide 21 L BUN 26 H Creatinine 2.9 H Glucose POC Glucose 108 H Lactic Acid Calcium 7.2 L Magnesium AST ALT Alkaline Phosphatase Troponin T C-Reactive Protein Total Protein Albumin LDL Cholesterol Direct HDL Cholesterol Hepatitis C Antibody Crossmatch Crossmatch [facility] 12/14/17 12/14/17 12/14/17 12:00 16:01 18:24 WBC 12.9 H RBC 3.25 L Hgb 8.2 L Hct 26.2 L MCV 81 L MCH 25 L MCHC 31 L RDW 19.2 H Plt Count Lymph % (Auto) [place] % (Auto) Eos % (Auto) Lymph # [place] # Eos # Seg Neutrophils % Seg Neuts % (Manual) Lymphocytes % (Manual) Monocytes % (Manual) Eosinophils % (Manual) Nucleated RBC % Seg Neutrophils # Seg Neutrophils # Man Lymphocytes # (Manual) Monocytes # (Manual) Eosinophils # (Manual) PT INR POC ABG pH POC ABG pCO2 POC ABG pO2 Sodium Potassium Chloride Carbon Dioxide BUN Creatinine Glucose POC Glucose 138 H 120 H Lactic Acid Calcium Magnesium AST ALT Alkaline Phosphatase Troponin T C-Reactive Protein Total Protein Albumin LDL Cholesterol Direct HDL Cholesterol Hepatitis C Antibody Crossmatch Crossmatch [facility] 12/14/17 12/14/17 12/15/17 23:29 Unknown 05:57 WBC 12.5 H RBC 2.48 L Hgb 6.0 L Hct 24.4 L MCV 79 L MCH 24 L MCHC 30 L RDW 18.5 H Plt Count 131 L Lymph % (Auto) 7.0 L [place] % (Auto) 8.9 H Eos % (Auto) 8.3 H Lymph # 0.9 L [place] # 1.1 H Eos # 1.0 H Seg Neutrophils % 75.2 H Seg Neuts % (Manual) Lymphocytes % (Manual) Monocytes % (Manual) Eosinophils % (Manual) Nucleated RBC % Seg Neutrophils # 9.4 H Seg Neutrophils # Man Lymphocytes # (Manual) Monocytes # (Manual) Eosinophils # (Manual) PT INR POC ABG pH POC ABG pCO2 POC ABG pO2 Sodium Potassium Chloride Carbon Dioxide BUN Creatinine Glucose POC Glucose 110 H 113 H Lactic Acid Calcium Magnesium AST ALT Alkaline Phosphatase Troponin T C-Reactive Protein Total Protein Albumin LDL Cholesterol Direct HDL Cholesterol Hepatitis C Antibody Crossmatch Crossmatch [facility] 12/15/17 12/15/17 12/15/17 11:50 13:37 17:58 WBC RBC Hgb 7.3 L Hct 23.3 L MCV MCH MCHC RDW Plt Count Lymph % (Auto) [place] % (Auto) Eos % (Auto) Lymph # [place] # Eos # Seg Neutrophils % Seg Neuts % (Manual) Lymphocytes % (Manual) Monocytes % (Manual) Eosinophils % (Manual) Nucleated RBC % Seg Neutrophils # Seg Neutrophils # Man Lymphocytes # (Manual) Monocytes # (Manual) Eosinophils # (Manual) PT INR POC ABG pH POC ABG pCO2 POC ABG pO2 Sodium Potassium Chloride Carbon Dioxide BUN Creatinine Glucose POC Glucose 106 H 110 H Lactic Acid Calcium Magnesium AST ALT Alkaline Phosphatase Troponin T C-Reactive Protein Total Protein Albumin LDL Cholesterol Direct HDL Cholesterol Hepatitis C Antibody Crossmatch Crossmatch [facility] 12/15/17 12/16/17 12/16/17 23:30 04:55 05:14 WBC 13.2 H RBC 2.79 L Hgb 6.9 L Hct 22.2 L MCV 80 L MCH 25 L MCHC 31 L RDW 18.8 H Plt Count Lymph % (Auto) 7.3 L [place] % (Auto) 11.0 H Eos % (Auto) 8.2 H Lymph # 1.0 L [place] # 1.4 H Eos # 1.1 H Seg Neutrophils % 72.9 H Seg Neuts % (Manual) Lymphocytes % (Manual) Monocytes % (Manual) Eosinophils % (Manual) Nucleated RBC % Seg Neutrophils # 9.6 H Seg Neutrophils # Man Lymphocytes # (Manual) Monocytes # (Manual) Eosinophils # (Manual) PT INR POC ABG pH POC ABG pCO2 POC ABG pO2 Sodium 131 L D Potassium 2.8 L* D Chloride 93.2 L Carbon Dioxide BUN 24 H Creatinine 2.0 H Glucose POC Glucose 111 H Lactic Acid Calcium 7.7 L Magnesium AST ALT Alkaline Phosphatase Troponin T C-Reactive Protein Total Protein Albumin LDL Cholesterol Direct HDL Cholesterol Hepatitis C Antibody Crossmatch Crossmatch [facility] 12/16/17 12/16/17 12/16/17 13:01 17:32 23:39 WBC RBC Hgb Hct MCV MCH MCHC RDW Plt Count Lymph % (Auto) [place] % (Auto) Eos % (Auto) Lymph # [place] # Eos # Seg Neutrophils % Seg Neuts % (Manual) Lymphocytes % (Manual) Monocytes % (Manual) Eosinophils % (Manual) Nucleated RBC % Seg Neutrophils # Seg Neutrophils # Man Lymphocytes # (Manual) Monocytes # (Manual) Eosinophils # (Manual) PT INR POC ABG pH POC ABG pCO2 POC ABG pO2 Sodium Potassium Chloride Carbon Dioxide BUN Creatinine Glucose POC Glucose 121 H 107 H Lactic Acid Calcium Magnesium AST ALT Alkaline Phosphatase Troponin T C-Reactive Protein Total Protein Albumin LDL Cholesterol Direct HDL Cholesterol Hepatitis C Antibody Crossmatch Crossmatch [facility] See Detail 12/17/17 12/17/17 12/17/17 05:08 05:08 12:03 WBC 12.9 H RBC 2.88 L Hgb 7.2 L Hct 22.6 L MCV 78 L MCH 25 L MCHC RDW 18.3 H Plt Count Lymph % (Auto) 8.0 L [place] % (Auto) 8.6 H Eos % (Auto) Lymph # 1.0 L [place] # 1.1 H Eos # Seg Neutrophils % 79.3 H Seg Neuts % (Manual) Lymphocytes % (Manual) Monocytes % (Manual) Eosinophils % (Manual) Nucleated RBC % Seg Neutrophils # 10.2 H Seg Neutrophils # Man Lymphocytes # (Manual) Monocytes # (Manual) Eosinophils # (Manual) PT INR POC ABG pH POC ABG pCO2 POC ABG pO2 Sodium Potassium 3.4 L D Chloride Carbon Dioxide BUN Creatinine Glucose 104 H POC Glucose 109 H Lactic Acid Calcium 7.6 L Magnesium 1.30 L AST ALT Alkaline Phosphatase 177 H Troponin T C-Reactive Protein Total Protein Albumin 2.0 L LDL Cholesterol Direct HDL Cholesterol Hepatitis C Antibody Crossmatch Crossmatch [facility] 12/17/17 12/18/17 12/18/17 23:40 00:50 00:50 WBC 22.6 H RBC 2.76 L Hgb 6.7 L Hct 21.6 L MCV 78 L MCH 24 L MCHC 31 L RDW 18.4 H Plt Count Lymph % (Auto) [place] % (Auto) Eos % (Auto) Lymph # [place] # Eos # Seg Neutrophils % Seg Neuts % (Manual) Lymphocytes % (Manual) Monocytes % (Manual) Eosinophils % (Manual) Nucleated RBC % Seg Neutrophils # Seg Neutrophils # Man Lymphocytes # (Manual) Monocytes # (Manual) Eosinophils # (Manual) PT INR POC ABG pH POC ABG pCO2 POC ABG pO2 Sodium Potassium Chloride Carbon Dioxide BUN 22 H Creatinine 1.6 H Glucose 113 H POC Glucose 120 H Lactic Acid Calcium 7.8 L Magnesium 1.50 L AST ALT Alkaline Phosphatase Troponin T C-Reactive Protein Total Protein Albumin LDL Cholesterol Direct HDL Cholesterol Hepatitis C Antibody Crossmatch Crossmatch [facility] 12/18/17 12/18/17 12/18/17 05:34 12:00 18:07 WBC RBC Hgb Hct MCV MCH MCHC RDW Plt Count Lymph % (Auto) [place] % (Auto) Eos % (Auto) Lymph # [place] # Eos # Seg Neutrophils % Seg Neuts % (Manual) Lymphocytes % (Manual) Monocytes % (Manual) Eosinophils % (Manual) Nucleated RBC % Seg Neutrophils # Seg Neutrophils # Man Lymphocytes # (Manual) Monocytes # (Manual) Eosinophils # (Manual) PT INR POC ABG pH POC ABG pCO2 POC ABG pO2 Sodium Potassium Chloride Carbon Dioxide BUN Creatinine Glucose POC Glucose 132 H 136 H 122 H Lactic Acid Calcium Magnesium AST ALT Alkaline Phosphatase Troponin T C-Reactive Protein Total Protein Albumin LDL Cholesterol Direct HDL Cholesterol Hepatitis C Antibody Crossmatch Crossmatch [facility] 12/19/17 12/19/17 12/19/17 00:24 00:24 05:17 WBC 15.4 H RBC 2.41 L Hgb 6.1 L Hct 19.0 L* MCV 79 L MCH 25 L MCHC RDW 18.5 H Plt Count Lymph % (Auto) [place] % (Auto) Eos % (Auto) Lymph # [place] # Eos # Seg Neutrophils % Seg Neuts % (Manual) Lymphocytes % (Manual) Monocytes % (Manual) Eosinophils % (Manual) Nucleated RBC % Seg Neutrophils # Seg Neutrophils # Man Lymphocytes # (Manual) Monocytes # (Manual) Eosinophils # (Manual) PT INR POC ABG pH POC ABG pCO2 POC ABG pO2 Sodium Potassium 3.2 L Chloride Carbon Dioxide BUN Creatinine Glucose 117 H POC Glucose 132 H Lactic Acid Calcium 8.2 L Magnesium 1.50 L AST ALT Alkaline Phosphatase Troponin T C-Reactive Protein Total Protein Albumin LDL Cholesterol Direct HDL Cholesterol Hepatitis C Antibody Crossmatch Crossmatch [facility] 12/19/17 12/19/17 09:00 09:00 WBC 12.4 H RBC 2.86 L Hgb 7.2 L Hct 22.6 L MCV 79 L MCH 25 L MCHC RDW 17.2 H Plt Count Lymph % (Auto) 6.8 L [place] % (Auto) 12.6 H Eos % (Auto) Lymph # 0.8 L [place] # 1.6 H Eos # Seg Neutrophils % 80.1 H Seg Neuts % (Manual) Lymphocytes % (Manual) Monocytes % (Manual) Eosinophils % (Manual) Nucleated RBC % Seg Neutrophils # 10.0 H Seg Neutrophils # Man Lymphocytes # (Manual) Monocytes # (Manual) Eosinophils # (Manual) PT INR POC ABG pH POC ABG pCO2 POC ABG pO2 Sodium Potassium 3.1 L Chloride Carbon Dioxide BUN 22 H Creatinine Glucose 113 H POC Glucose Lactic Acid Calcium 8.3 L Magnesium AST 54 H ALT Alkaline Phosphatase 204 H Troponin T C-Reactive Protein Total Protein 5.8 L Albumin 2.0 L LDL Cholesterol Direct HDL Cholesterol Hepatitis C Antibody Crossmatch Crossmatch [place]
--- NOTE | 2017-12-19 16:44 | Progress Note ---
Assessment and Plan Assessment and plan: Day 37, Admitted 11/12/17 Mr. 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 He had a Carotid doppler done that revealed a right ICA 50-79% stenosis. CTA of the neck revealed 80% stenosis of the right ICA with probable 50% stenosis of the origin of the right common carotid artery. His symptoms were thought to be due to the Carotid artery stenosis which was disheartening since he was on Aspirin and plavix. He was scheduled for right CEA but needed Cardiac clearance. He underwent stress test on 10/05/17 and Shafting Cleaner stated he was stable for non-cardiac history, low to moderate perioperative risk. So, he underwent right carotid enarterectomy on 10/09/17. Following the surgery, he developed recurrent left sided weakness/hemiparesis and was taken back to the OR on 10/10/17 for Open Thrombectomy of Right Internal Carotid Artery and Injection of TPA into the Distal Artery. CT head obtained 2 days after surgery on 10/12/17 showed massive right cerebral hemisphere acute CVA with midline shift. He was discharged on 11/10/17 to [facility] but returned to ED and readmitted on 11/12/17 for Aspiration post-obstructive pneumonia with suspected mucus plug and subsequently intubated on admission. ON 11/20/17, patient went for Tracheostomy by Dr. Hughes, ENT. Then on 11/21/17 patient went into shock, most likely sepsis as WBC went up to 38k; initially thought to be due to aspiration pneumonia but it was discovered he had a dislodged PEG tube which lead to severe intra-abdominal infection causing peritionitis s/p IR drainage with 3 pigtail catheter which was removed on Thursday. The PEG was replaced. Dr. Palmer placed a left femoral tunnel cath for Hemodialysis. Peritonitis - likely from dislodged peg tube - peritoneal Fluid positive for Enterobacter, Heather (non albicans) - Antibiotics managed by ID - s/p multiple intraabdominal drainages placed by IR and GS. - last drainage was placed on 12/06 by IR -Acute hypoxic respiratory failure due to Pneumonia on MV>96 hours s/p Tracheostomy 11/20/17: continue MV, daily weaning attempt -Leukocyotosis with Sepsis with transient septic shock, poa: shock resolved, continue abx, ID is following -Aspiration pneumonia, with mucus plugging/post obstructive pna poa: Newspaper Columnist is following, following sunction protocols -Acute encephalopathy: treat supportively -Hypernatremia: treat with free water, monitor bmp closely -Hypokalemia: replace and monitor closely -ARF vasomotor nephropathy, poa: IV fluids, monitor bmp closely -Dysphagia with aspiration: s/p peg tube -Acute on chronic blood loss anemia w/Coffee-ground material from peg tube: GI is following, treat with ppi iv bid, EGD done 11/18/17 showed 8 mm cratered, 10 mm linear ulcer proximal lesser curvature with erythema but no other bleeding stigmata, gastritis and 4-5 cm hiatal hernia -Advance care planning: full code CCT 31 minutes History Interval history: Patient was seen and examined. Follow-up on current diagnosis of respiratory failure. Intubated via Trach now. Already had peg upon admission. Imaging, nursing note, chart, labs and old chart reviewed. Hospitalist Physical - Physical exam Narrative exam: GEN: ill appearing, ngt in place HEENT: NCAT, pupils reactive, anicteric, NECK: supple, no adenopathy, no thyromegaly, no JVD, trach in place, I do not see any pus or bleeding around trach CVS/HEART: RRR, normal S1S2, pulses present bilaterally CHEST/LUNGS: Symmetrical chest expansion, good air entry bilaterally GI/Abdomen: soft, distended, pbs, +peg tube in place EXT/Skin: generalized edema x 4 MSK: left hemiparesis Neuro: doesn't follow commands, aphasic Psych: confused and semi-comatose state - Constitutional Vitals: Temp Pulse Resp BP Pulse Ox 99.2 F 128 H 27 H 157/77 94 12/19/17 12:00 12/19/17 16:01 12/19/17 16:01 12/19/17 16:01 12/19/17 16:01 General appearance: Present: no acute distress Results - Labs CBC & Chem 7: 12/19/17 09:00 12/19/17 09:00 Labs: Laboratory Last Values WBC 12.4 K/mm3 (4.5-11.0) H 12/19/17 09:00 RBC 2.86 M/mm3 (3.65-5.03) L 12/19/17 09:00 Hgb 7.2 gm/dl (11.8-15.2) L 12/19/17 09:00 Hct 22.6 % (35.5-45.6) L 12/19/17 09:00 MCV 79 fl (84-94) L 12/19/17 09:00 MCH 25 pg (28-32) L 12/19/17 09:00 MCHC 32 % (32-34) 12/19/17 09:00 RDW 17.2 % (13.2-15.2) H 12/19/17 09:00 Plt Count 161 K/mm3 (140-440) 12/19/17 09:00 Lymph % (Auto) 6.8 % (13.4-35.0) L 12/19/17 09:00 [place] % (Auto) 12.6 % (0.0-7.3) H 12/19/17 09:00 Eos % (Auto) 0.2 % (0.0-4.3) 12/19/17 09:00 Baso % (Auto) 0.3 % (0.0-1.8) 12/19/17 09:00 Lymph # 0.8 K/mm3 (1.2-5.4) L 12/19/17 09:00 [place] # 1.6 K/mm3 (0.0-0.8) H 12/19/17 09:00 Eos # 0.0 K/mm3 (0.0-0.4) 12/19/17 09:00 Baso # 0.0 K/mm3 (0.0-0.1) 12/19/17 09:00 Add Manual Diff Complete 12/12/17 05:41 Total Counted 100 12/12/17 05:41 Seg Neutrophils % 80.1 % (40.0-70.0) H 12/19/17 09:00 Seg Neuts % (Manual) 74.0 % (40.0-70.0) H 12/12/17 05:41 Band Neutrophils % 6.0 % 12/12/17 05:41 Lymphocytes % (Manual) 6.0 % (13.4-35.0) L 12/12/17 05:41 Reactive Lymphs % (Man) 0 % 12/12/17 05:41 Monocytes % (Manual) 2.0 % (0.0-7.3) 12/12/17 05:41 Eosinophils % (Manual) 9.0 % (0.0-4.3) H 12/12/17 05:41 Basophils % (Manual) 0 % (0.0-1.8) 12/12/17 05:41 Metamyelocytes % 3.0 % 12/12/17 05:41 Myelocytes % 0 % 12/12/17 05:41 Promyelocytes % 0 % 12/12/17 05:41 Blast Cells % 0 % 12/12/17 05:41 Nucleated RBC % Not Reportable 12/12/17 05:41 Seg Neutrophils # 10.0 K/mm3 (1.8-7.7) H 12/19/17 09:00 Seg Neutrophils # Man 7.7 K/mm3 (1.8-7.7) 12/12/17 05:41 Band Neutrophils # 0.6 K/mm3 12/12/17 05:41 Lymphocytes # (Manual) 0.6 K/mm3 (1.2-5.4) L 12/12/17 05:41 Abs React Lymphs (Man) 0.0 K/mm3 12/12/17 05:41 Monocytes # (Manual) 0.2 K/mm3 (0.0-0.8) 12/12/17 05:41 Eosinophils # (Manual) 0.9 K/mm3 (0.0-0.4) H 12/12/17 05:41 Basophils # (Manual) 0.0 K/mm3 (0.0-0.1) 12/12/17 05:41 Metamyelocytes # 0.3 K/mm3 12/12/17 05:41 Myelocytes # 0.0 K/mm3 12/12/17 05:41 Promyelocytes # 0.0 K/mm3 12/12/17 05:41 Blast Cells # 0.0 K/mm3 12/12/17 05:41 WBC Morphology Not Reportable 12/12/17 05:41 Hypersegmented Neuts Not Reportable 12/12/17 05:41 Hyposegmented Neuts Not Reportable 12/12/17 05:41 Hypogranular Neuts Not Reportable 12/12/17 05:41 Smudge Cells Not Reportable 12/12/17 05:41 Toxic Granulation Not Reportable 12/12/17 05:41 Toxic Vacuolation Not Reportable 12/12/17 05:41 Dohle Bodies Not Reportable 12/12/17 05:41 Pelger-Huet Anomaly Not Reportable 12/12/17 05:41 Evangelina Rods Not Reportable 12/12/17 05:41 Platelet Estimate Consistent w auto 12/12/17 05:41 Clumped Platelets Not Reportable 12/12/17 05:41 Plt Clumps, EDTA Not Reportable 12/12/17 05:41 Large Platelets Not Reportable 12/12/17 05:41 Giant Platelets Not Reportable 12/12/17 05:41 Platelet Satelliting Not Reportable 12/12/17 05:41 Plt Morphology Comment Not Reportable 12/12/17 05:41 RBC Morphology Not Reportable 12/12/17 05:41 Dimorphic RBCs Not Reportable 12/12/17 05:41 Polychromasia 1+ 12/12/17 05:41 Hypochromasia Few 12/12/17 05:41 Poikilocytosis Not Reportable 12/12/17 05:41 Anisocytosis 1+ 12/12/17 05:41 Microcytosis Few 12/12/17 05:41 Macrocytosis Not Reportable 12/12/17 05:41 Spherocytes Not Reportable 12/12/17 05:41 Pappenheimer Bodies Not Reportable 12/12/17 05:41 Sickle Cells Not Reportable 12/12/17 05:41 Target Cells Not Reportable 12/12/17 05:41 Tear Drop Cells Not Reportable 12/12/17 05:41 Ovalocytes Not Reportable 12/12/17 05:41 Stomatocytes 1+ 12/12/17 05:41 Helmet Cells Not Reportable 12/12/17 05:41 Dukes-Dedham Bodies Not Reportable 12/12/17 05:41 Westley Rings Not Reportable 12/12/17 05:41 Lucretia Cells Not Reportable 12/12/17 05:41 Bite Cells Not Reportable 12/12/17 05:41 Crenated Cell Not Reportable 12/12/17 05:41 Elliptocytes Not Reportable 12/12/17 05:41 Acanthocytes (Spur) Not Reportable 12/12/17 05:41 Rouleaux Not Reportable 12/12/17 05:41 Hemoglobin C Crystals Not Reportable 12/12/17 05:41 Schistocytes Not Reportable 12/12/17 05:41 Malaria parasites Not Reportable 12/12/17 05:41 Santo Bodies Not Reportable 12/12/17 05:41 Hem Pathologist Commnt No 12/12/17 05:41 PT 15.4 Sec. (12.2-14.9) H 12/14/17 05:11 INR 1.17 (0.87-1.13) H 12/14/17 05:11 APTT 33.8 Sec. (24.2-36.6) 11/26/17 06:29 POC ABG pH 7.505 (7.35-7.45) H 11/23/17 04:56 POC ABG pCO2 26.3 (35-45) L 11/23/17 04:56 POC ABG pO2 100 (80-105) 11/23/17 04:56 POC ABG HCO3 20.8 11/23/17 04:56 POC ABG Total CO2 22 11/23/17 04:56 POC ABG O2 Sat 98 11/23/17 04:56 POC ABG Base Excess -2 11/23/17 04:56 FiO2 30 % 11/23/17 04:56 Sodium 139 mmol/L (137-145) 12/19/17 09:00 Potassium 3.1 mmol/L (3.6-5.0) L 12/19/17 09:00 Chloride 100.0 mmol/L (98-107) 12/19/17 09:00 Carbon Dioxide 27 mmol/L (22-30) 12/19/17 09:00 Anion Gap 15 mmol/L 12/19/17 09:00 BUN 22 mg/dL (9-20) H 12/19/17 09:00 Creatinine 1.4 mg/dL (0.8-1.5) 12/19/17 09:00 Estimated GFR > 60 ml/min 12/19/17 09:00 BUN/Creatinine Ratio 16 % 12/19/17 09:00 Glucose 113 mg/dL (75-100) H 12/19/17 09:00 POC Glucose 105 (70-105) 12/19/17 12:14 Lactic Acid 1.80 mmol/L (0.7-2.0) 11/27/17 04:06 Calcium 8.3 mg/dL (8.4-10.2) L 12/19/17 09:00 Phosphorus 2.60 mg/dL (2.5-4.5) 12/11/17 15:26 Magnesium 1.50 mg/dL (1.7-2.3) L 12/19/17 00:24 Total Bilirubin 0.70 mg/dL (0.1-1.2) 12/19/17 09:00 AST 54 units/L (5-40) H 12/19/17 09:00 ALT 25 units/L (7-56) 12/19/17 09:00 Alkaline Phosphatase 204 units/L (35-129) H 12/19/17 09:00 Total Creatine Kinase 84 units/L (55-170) 11/12/17 20:03 CK-MB (CK-2) < 1.0 ng/mL (0.0-4.0) 11/12/17 20:03 CK-MB (CK-2) Rel Index 1.1 (0-4) 11/12/17 20:03 Troponin T 0.098 ng/mL (0.00-0.029) H 11/12/17 Unknown C-Reactive Protein 25.70 mg/dL (0.00-1.30) H 11/11/17 23:20 NT-Pro-B Natriuret Pep 792.4 pg/mL (0-900) 11/11/17 23:20 Total Protein 5.8 g/dL (6.3-8.2) L 12/19/17 09:00 Albumin 2.0 g/dL (3.9-5) L 12/19/17 09:00 Albumin/Globulin Ratio 0.5 % 12/19/17 09:00 Triglycerides 86 mg/dL (2-149) 11/11/17 23:20 Cholesterol 82 mg/dL (50-199) 11/11/17 23:20 LDL Cholesterol Direct 42 mg/dL (50-130) L 11/11/17 23:20 HDL Cholesterol 24 mg/dL (40-59) L 11/11/17 23:20 Cholesterol/HDL Ratio 3.41 % 11/11/17 23:20 Lipase 30 units/L (13-60) 11/11/17 23:20 Urine Color Nicole (Yellow) 11/11/17 23:09 Urine Turbidity Cloudy (Clear) 11/11/17 23:09 Urine pH 5.0 (5.0-7.0) 11/11/17 23:09 Ur Specific Moore 1.025 (1.003-1.030) 11/11/17 23:09 Urine Protein 100 mg/dl mg/dL (Negative) 11/11/17 23:09 Urine Glucose (UA) 50 mg/dL (Negative) 11/11/17 23:09 Urine Ketones Neg mg/dL (Negative) 11/11/17 23:09 Urine Blood Neg (Negative) 11/11/17 23:09 Urine Nitrite Neg (Negative) 11/11/17 23:09 Urine Bilirubin Neg (Negative) 11/11/17 23:09 Urine Urobilinogen 4.0 mg/dL (<2.0) 11/11/17 23:09 Ur Leukocyte Esterase Neg (Negative) 11/11/17 23:09 Urine WBC (Auto) 5.0 /HPF (0.0-6.0) 11/11/17 23:09 Urine RBC (Auto) 4.0 /HPF (0.0-6.0) 11/11/17 23:09 Urine Bacteria (Auto) 3+ /HPF (Negative) 11/11/17 23:09 Amorphous Crystals 3+ 11/11/17 23:09 Hyaline Casts 76 /LPF 11/11/17 23:09 Urine Mucus 2+ /HPF 11/11/17 23:09 Hepatitis A IgM Ab Non-reactive (NonReactive) 11/22/17 19:45 Hep Bs Antigen Non-reactive (Negative) 11/22/17 19:45 Hep B Core IgM Ab Non-reactive (NonReactive) 11/22/17 19:45 Hepatitis C Antibody Reactive (NonReactive) A 11/22/17 19:45 Blood Type A POSITIVE 12/16/17 13:01 Antibody Screen Positive 12/16/17 13:01 SANTANA Antibody Screen Cancelled 12/16/17 13:01 Antibody Identification Cold Antibody 12/16/17 13:01 Crossmatch See Detail 12/16/17 13:01 Crossmatch Prewarmed See Detail 12/16/17 13:01
[2017-12-19] MEDS ORDERED: POTASSIUM CHLORIDE FEEDTUBE ONE (17:25)
[2017-12-19] MEDS: DILAUDID IV PRN (19:58)
[2017-12-20] MEDS: DIFLUCAN FEEDTUBE SCH (10:05)
[2017-12-20] MEDS: LOPRESSOR PO SCH ×2 (10:05→22:37)
[2017-12-20] MEDS: PREVACID SOLUTAB FEEDTUBE SCH ×2 (10:05→22:37)
[2017-12-20] MEDS: MERREM 1,000 MG in NACL 0.9% 100 ML IV SCH (10:06)
--- NOTE | 2017-12-20 10:42 | Progress Note ---
Subjective Principal diagnosis: Acute hypoxic respiratory failure, s/p Trach Interval history: Patient was seen today for follow-up on multiple renal related issues Events of this hospitalization noted resting comfortably No acute distress Dialysis dependent due to acute kidney injury Vitals labs intake output medications were reviewed Social history: Reviewed Allergies: Reviewed Family history: Reviewed Physical examination HEENT: Oral mucosa moist no pallor or icterus Neck: Supple no JVD Chest: Clear to auscultation anteriorly CVS: Regular rate and rhythm S1 and S2 heard Abdomen: Soft nontender no suprapubic masses no organomegaly appreciable Extremity: Dry skin less than 1+ peripheral edema Musculoskeletal: No joint effusion noted in knees and ankle Dermatology: No petechial rashes Psychiatry: No evidence of any agitation and aggression noted Assessment and plan Acute kidney injury: Patient continues to be dialysis dependent, he can continue to dialyze on Thursday schedule as long as blood pressure is stable patient likely may benefit from albumin therapy during dialysis treatment Patient needs to be reassessed tomorrow morning before dialysis orders can be initiated again for the new week Will also order for basic labs today Patient does have stable metabolic control Intake and output needs to be monitored closely Monitor for any signs and symptoms of renal function recovery: Currently not doing wel likely etiology of renal failure appears to be due to acute tubular necrosis given the clinical scenario Last labs obtained December 19 shows a hemoglobin of 7.2 potassium 3.1 BUN 22 creatinine 1.4 calcium 8.3 magnesia was 1.5, patient does need follow-up labs Patient's prognosis long-term was not good Leukocytosis, hypokalemia, hyponatremia, We'll continue to follow and make recommendation from renal standpoint Objective - Vital Signs Vital signs: Vital Signs - 12hr 12/19/17 12/20/17 12/20/17 23:00 00:00 00:03 Temperature 98.5 F Pulse Rate 136 H 113 H 137 H Respiratory 27 H 25 H 25 H Rate Blood Pressure 134/86 135/74 135/74 O2 Sat by Pulse 96 95 98 Oximetry O2 Sat by Pulse Oximetry [ Assessment] 12/20/17 12/20/17 12/20/17 00:11 01:00 02:00 Temperature Pulse Rate 105 H 130 H Respiratory 26 H 22 Rate Blood Pressure 129/78 141/78 O2 Sat by Pulse 100 96 Oximetry O2 Sat by Pulse 100 Oximetry [ Assessment] 12/20/17 12/20/17 12/20/17 03:00 04:00 04:58 Temperature 98.3 F Pulse Rate 116 H 112 H Respiratory 28 H 28 H Rate Blood Pressure 133/80 141/89 O2 Sat by Pulse 95 98 Oximetry O2 Sat by Pulse 98 Oximetry [ Assessment] 12/20/17 12/20/17 12/20/17 05:00 06:00 07:00 Temperature Pulse Rate 116 H 109 H 114 H Respiratory 22 22 28 H Rate Blood Pressure 142/97 131/80 160/94 O2 Sat by Pulse 98 98 96 Oximetry O2 Sat by Pulse Oximetry [ Assessment] 12/20/17 12/20/17 12/20/17 08:00 09:00 09:12 Temperature 99.3 F Pulse Rate 113 H 112 H Respiratory 27 H 25 H Rate Blood Pressure 144/85 152/93 O2 Sat by Pulse 100 97 98 Oximetry O2 Sat by Pulse 98 Oximetry [ Assessment] 12/20/17 10:00 Temperature Pulse Rate 128 H Respiratory 29 H Rate Blood Pressure 142/84 O2 Sat by Pulse 96 Oximetry O2 Sat by Pulse Oximetry [ Assessment] - Lab 12/19/17 09:00 12/19/17 09:00 Most recent lab results Calcium 8.3 mg/dL (8.4-10.2) L 12/19/17 09:00 Phosphorus 2.60 mg/dL (2.5-4.5) 12/11/17 15:26 Magnesium 1.50 mg/dL (1.7-2.3) L 12/19/17 00:24
--- NOTE | 2017-12-20 11:22 | Progress Note ---
Assessment and Plan 67 y/o male with acute on chronic respiratory failure, now trached, with peritonitis from dislodged peg tube s/p 2 IR drains now with NGT feedings now spiking fevers again. No new recs for today. Please see below. 1. Trach Care 2. IV abx therapy per ID 3. Electrolytes per primary and renal 4. Will continue to follow along with you. Subjective Date of service: 12/20/17 Principal diagnosis: Acute hypoxic respiratory failure, s/p Trach Interval history: No acute events. Stable pulm status Objective Vital Signs - 12hr 12/20/17 12/20/17 12/20/17 00:00 00:03 00:11 Temperature 98.5 F Pulse Rate 113 H 137 H Respiratory 25 H 25 H Rate Blood Pressure 135/74 135/74 O2 Sat by Pulse 95 98 Oximetry O2 Sat by Pulse 100 Oximetry [ Assessment] 12/20/17 12/20/17 12/20/17 01:00 02:00 03:00 Temperature Pulse Rate 105 H 130 H 116 H Respiratory 26 H 22 28 H Rate Blood Pressure 129/78 141/78 133/80 O2 Sat by Pulse 100 96 95 Oximetry O2 Sat by Pulse Oximetry [ Assessment] 12/20/17 12/20/17 12/20/17 04:00 04:58 05:00 Temperature 98.3 F Pulse Rate 112 H 116 H Respiratory 28 H 22 Rate Blood Pressure 141/89 142/97 O2 Sat by Pulse 98 98 Oximetry O2 Sat by Pulse 98 Oximetry [ Assessment] 12/20/17 12/20/17 12/20/17 06:00 07:00 08:00 Temperature 99.3 F Pulse Rate 109 H 114 H 113 H Respiratory 22 28 H 27 H Rate Blood Pressure 131/80 160/94 144/85 O2 Sat by Pulse 98 96 100 Oximetry O2 Sat by Pulse Oximetry [ Assessment] 12/20/17 12/20/17 12/20/17 09:00 09:12 10:00 Temperature Pulse Rate 112 H 128 H Respiratory 25 H 29 H Rate Blood Pressure 152/93 142/84 O2 Sat by Pulse 97 98 96 Oximetry O2 Sat by Pulse 98 Oximetry [ Assessment] Constitutional: no acute distress, alert Eyes: non-icteric ENT: oropharynx moist Neck: supple (trach in position), no JVD Effort: normal Ascultation: Bilateral: clear, rhonchi (bilateral,post tussive), other (coarse BS bilaterally) Cardiovascular: regular rate and rhythm Gastrointestinal: normoactive bowel sounds, soft, non-tender, other (drainages in place) Integumentary: normal Extremities: no cyanosis, pink and warm, anasarca Neurologic: other (L hemiparesis,awake, response to my voice) Psychiatric: other (unable to assess) CBC and BMP: 12/19/17 09:00 12/19/17 09:00 ABG, PT/INR, D-dimer: ABG POC ABG pH 7.505 (7.35-7.45) H 11/23/17 04:56 POC ABG pCO2 26.3 (35-45) L 11/23/17 04:56 POC ABG pO2 100 (80-105) 11/23/17 04:56 POC ABG HCO3 20.8 11/23/17 04:56 POC ABG Total CO2 22 11/23/17 04:56 POC ABG O2 Sat 98 11/23/17 04:56 PT/INR, D-dimer PT 15.4 Sec. (12.2-14.9) H 12/14/17 05:11 INR 1.17 (0.87-1.13) H 12/14/17 05:11 Abnormal lab findings: Abnormal Labs 11/11/17 11/11/17 11/11/17 23:18 23:20 23:20 WBC RBC Hgb 10.4 L Hct 32.6 L D MCV MCH 27 L MCHC RDW 17.4 H Plt Count 105 L Lymph % (Auto) [place] % (Auto) Eos % (Auto) Lymph # [place] # Eos # Seg Neutrophils % Seg Neuts % (Manual) Lymphocytes % (Manual) 8.0 L Monocytes % (Manual) Eosinophils % (Manual) Nucleated RBC % 1.0 H Seg Neutrophils # Seg Neutrophils # Man Lymphocytes # (Manual) 0.7 L Monocytes # (Manual) Eosinophils # (Manual) PT INR POC ABG pH 7.550 H POC ABG pCO2 31.6 L POC ABG pO2 Sodium 146 H Potassium Chloride Carbon Dioxide BUN 26 H Creatinine 1.7 H D Glucose 133 H POC Glucose Lactic Acid Calcium Magnesium AST ALT Alkaline Phosphatase Troponin T 0.117 H* C-Reactive Protein Total Protein Albumin 2.5 L LDL Cholesterol Direct 42 L HDL Cholesterol 24 L Hepatitis C Antibody Crossmatch Crossmatch [place] 11/11/17 11/12/17 11/12/17 23:20 00:23 00:23 WBC RBC Hgb Hct MCV MCH MCHC RDW Plt Count Lymph % (Auto) [place] % (Auto) Eos % (Auto) Lymph # [place] # Eos # Seg Neutrophils % Seg Neuts % (Manual) Lymphocytes % (Manual) Monocytes % (Manual) Eosinophils % (Manual) Nucleated RBC % Seg Neutrophils # Seg Neutrophils # Man Lymphocytes # (Manual) Monocytes # (Manual) Eosinophils # (Manual) PT 16.7 H INR 1.28 H POC ABG pH POC ABG pCO2 POC ABG pO2 Sodium Potassium Chloride Carbon Dioxide BUN Creatinine Glucose POC Glucose Lactic Acid 3.20 H* Calcium Magnesium AST ALT Alkaline Phosphatase Troponin T C-Reactive Protein 25.70 H Total Protein Albumin LDL Cholesterol Direct HDL Cholesterol Hepatitis C Antibody Crossmatch Crossmatch [place] 11/12/17 11/12/17 11/12/17 00:46 01:27 01:27 WBC RBC Hgb Hct MCV MCH MCHC RDW Plt Count Lymph % (Auto) [place] % (Auto) Eos % (Auto) Lymph # [place] # Eos # Seg Neutrophils % Seg Neuts % (Manual) Lymphocytes % (Manual) Monocytes % (Manual) Eosinophils % (Manual) Nucleated RBC % Seg Neutrophils # Seg Neutrophils # Man Lymphocytes # (Manual) Monocytes # (Manual) Eosinophils # (Manual) PT INR POC ABG pH 7.495 H POC ABG pCO2 32.0 L POC ABG pO2 64 L Sodium Potassium Chloride Carbon Dioxide BUN Creatinine Glucose POC Glucose Lactic Acid 3.70 H* Calcium Magnesium AST ALT Alkaline Phosphatase Troponin T 0.096 H C-Reactive Protein Total Protein Albumin LDL Cholesterol Direct HDL Cholesterol Hepatitis C Antibody Crossmatch Crossmatch [place] 11/12/17 11/12/17 11/12/17 03:21 04:50 06:27 WBC RBC Hgb Hct MCV MCH MCHC RDW Plt Count Lymph % (Auto) [place] % (Auto) Eos % (Auto) Lymph # [place] # Eos # Seg Neutrophils % Seg Neuts % (Manual) Lymphocytes % (Manual) Monocytes % (Manual) Eosinophils % (Manual) Nucleated RBC % Seg Neutrophils # Seg Neutrophils # Man Lymphocytes # (Manual) Monocytes # (Manual) Eosinophils # (Manual) PT INR POC ABG pH POC ABG pCO2 POC ABG pO2 109 H Sodium Potassium Chloride Carbon Dioxide BUN Creatinine Glucose POC Glucose Lactic Acid 3.80 H* 2.20 H* Calcium Magnesium AST ALT Alkaline Phosphatase Troponin T C-Reactive Protein Total Protein Albumin LDL Cholesterol Direct HDL Cholesterol Hepatitis C Antibody Crossmatch Crossmatch [place] 11/12/17 11/12/17 11/12/17 09:24 09:24 09:24 WBC RBC Hgb 10.4 L Hct 33.4 L MCV MCH MCHC RDW Plt Count Lymph % (Auto) [place] % (Auto) Eos % (Auto) Lymph # [place] # Eos # Seg Neutrophils % Seg Neuts % (Manual) Lymphocytes % (Manual) Monocytes % (Manual) Eosinophils % (Manual) Nucleated RBC % Seg Neutrophils # Seg Neutrophils # Man Lymphocytes # (Manual) Monocytes # (Manual) Eosinophils # (Manual) PT INR POC ABG pH POC ABG pCO2 POC ABG pO2 Sodium Potassium Chloride Carbon Dioxide BUN Creatinine Glucose POC Glucose Lactic Acid 2.90 H* Calcium Magnesium AST ALT Alkaline Phosphatase Troponin T 0.091 H C-Reactive Protein Total Protein Albumin LDL Cholesterol Direct HDL Cholesterol Hepatitis C Antibody Crossmatch Crossmatch [place] 11/12/17 11/12/17 11/12/17 12:56 20:03 Unknown WBC RBC Hgb Hct MCV MCH MCHC RDW Plt Count Lymph % (Auto) [place] % (Auto) Eos % (Auto) Lymph # [place] # Eos # Seg Neutrophils % Seg Neuts % (Manual) Lymphocytes % (Manual) Monocytes % (Manual) Eosinophils % (Manual) Nucleated RBC % Seg Neutrophils # Seg Neutrophils # Man Lymphocytes # (Manual) Monocytes # (Manual) Eosinophils # (Manual) PT INR POC ABG pH POC ABG pCO2 POC ABG pO2 Sodium Potassium Chloride Carbon Dioxide BUN Creatinine Glucose POC Glucose Lactic Acid 3.60 H* Calcium Magnesium AST ALT Alkaline Phosphatase Troponin T 0.102 H* 0.156 H* D C-Reactive Protein Total Protein Albumin LDL Cholesterol Direct HDL Cholesterol Hepatitis C Antibody Crossmatch Crossmatch [place] 11/12/17 11/13/17 11/13/17 Unknown 04:50 04:50 WBC 12.2 H RBC 3.51 L Hgb 9.3 L Hct 30.1 L MCV MCH 26 L MCHC 31 L RDW 18.0 H Plt Count 128 L Lymph % (Auto) 8.6 L [place] % (Auto) 11.1 H Eos % (Auto) Lymph # 1.1 L [place] # 1.4 H Eos # Seg Neutrophils % 80.1 H Seg Neuts % (Manual) Lymphocytes % (Manual) Monocytes % (Manual) Eosinophils % (Manual) Nucleated RBC % Seg Neutrophils # 9.8 H Seg Neutrophils # Man Lymphocytes # (Manual) Monocytes # (Manual) Eosinophils # (Manual) PT INR POC ABG pH POC ABG pCO2 POC ABG pO2 Sodium 149 H Potassium 5.1 H Chloride 114.4 H Carbon Dioxide 18 L BUN 52 H Creatinine 3.3 H D Glucose 129 H POC Glucose Lactic Acid Calcium 7.9 L Magnesium AST ALT Alkaline Phosphatase Troponin T 0.098 H C-Reactive Protein Total Protein Albumin LDL Cholesterol Direct HDL Cholesterol Hepatitis C Antibody Crossmatch Crossmatch [place] 11/13/17 11/13/17 11/14/17 04:51 09:34 04:21 WBC RBC Hgb Hct MCV MCH MCHC RDW Plt Count Lymph % (Auto) [place] % (Auto) Eos % (Auto) Lymph # [place] # Eos # Seg Neutrophils % Seg Neuts % (Manual) Lymphocytes % (Manual) Monocytes % (Manual) Eosinophils % (Manual) Nucleated RBC % Seg Neutrophils # Seg Neutrophils # Man Lymphocytes # (Manual) Monocytes # (Manual) Eosinophils # (Manual) PT INR POC ABG pH POC ABG pCO2 30.1 L 29.8 L POC ABG pO2 135 H Sodium Potassium Chloride Carbon Dioxide BUN Creatinine Glucose POC Glucose Lactic Acid 2.10 H* Calcium Magnesium AST ALT Alkaline Phosphatase Troponin T C-Reactive Protein Total Protein Albumin LDL Cholesterol Direct HDL Cholesterol Hepatitis C Antibody Crossmatch Crossmatch [place] 11/15/17 11/15/17 11/16/17 04:52 15:50 05:17 WBC RBC Hgb Hct MCV MCH MCHC RDW Plt Count Lymph % (Auto) [place] % (Auto) Eos % (Auto) Lymph # [place] # Eos # Seg Neutrophils % Seg Neuts % (Manual) Lymphocytes % (Manual) Monocytes % (Manual) Eosinophils % (Manual) Nucleated RBC % Seg Neutrophils # Seg Neutrophils # Man Lymphocytes # (Manual) Monocytes # (Manual) Eosinophils # (Manual) PT INR POC ABG pH POC ABG pCO2 29.5 L 31.5 L POC ABG pO2 115 H 122 H Sodium 154 H Potassium Chloride 117.9 H Carbon Dioxide 19 L BUN 87 H Creatinine 4.1 H Glucose POC Glucose Lactic Acid Calcium 8.1 L Magnesium AST ALT Alkaline Phosphatase Troponin T C-Reactive Protein Total Protein Albumin LDL Cholesterol Direct HDL Cholesterol Hepatitis C Antibody Crossmatch Crossmatch [place] 11/16/17 11/17/17 11/17/17 16:37 04:07 10:00 WBC 14.7 H RBC 3.23 L Hgb 8.3 L Hct 28.1 L MCV MCH 26 L MCHC 30 L RDW 18.8 H Plt Count Lymph % (Auto) [place] % (Auto) Eos % (Auto) Lymph # [place] # Eos # Seg Neutrophils % Seg Neuts % (Manual) 75 H Lymphocytes % (Manual) 8.0 L Monocytes % (Manual) Eosinophils % (Manual) Nucleated RBC % 1.0 H Seg Neutrophils # Seg Neutrophils # Man 11.0 H Lymphocytes # (Manual) Monocytes # (Manual) 0.9 H Eosinophils # (Manual) PT INR POC ABG pH POC ABG pCO2 POC ABG pO2 Sodium 153 H 155 H Potassium Chloride 117.3 H 119.4 H Carbon Dioxide 19 L 20 L BUN 90 H 89 H Creatinine 3.9 H 3.6 H Glucose 111 H 115 H POC Glucose Lactic Acid Calcium 8.1 L 8.0 L Magnesium AST ALT Alkaline Phosphatase Troponin T C-Reactive Protein Total Protein Albumin LDL Cholesterol Direct HDL Cholesterol Hepatitis C Antibody Crossmatch Crossmatch [place] 11/18/17 11/18/17 11/18/17 04:34 04:34 04:34 WBC 15.5 H RBC 3.13 L Hgb 8.1 L Hct 26.3 L MCV MCH 26 L MCHC 31 L RDW 18.6 H Plt Count Lymph % (Auto) [place] % (Auto) Eos % (Auto) Lymph # [place] # Eos # Seg Neutrophils % Seg Neuts % (Manual) 81.0 H Lymphocytes % (Manual) 7.0 L Monocytes % (Manual) Eosinophils % (Manual) Nucleated RBC % 1.0 H Seg Neutrophils # Seg Neutrophils # Man 12.6 H Lymphocytes # (Manual) 1.1 L Monocytes # (Manual) Eosinophils # (Manual) PT 16.7 H INR 1.30 H POC ABG pH POC ABG pCO2 POC ABG pO2 Sodium 155 H Potassium 3.2 L Chloride 121.0 H Carbon Dioxide 20 L BUN 74 H Creatinine 2.9 H Glucose 126 H POC Glucose Lactic Acid Calcium 7.9 L Magnesium AST ALT Alkaline Phosphatase Troponin T C-Reactive Protein Total Protein Albumin LDL Cholesterol Direct HDL Cholesterol Hepatitis C Antibody Crossmatch Crossmatch [place] 11/19/17 11/19/17 11/20/17 04:44 04:44 00:38 WBC 19.0 H 22.2 H RBC 3.20 L 3.17 L Hgb 8.4 L 7.9 L Hct 27.9 L 26.4 L MCV 83 L MCH 26 L 25 L MCHC 30 L 30 L RDW 19.1 H 18.9 H Plt Count Lymph % (Auto) [place] % (Auto) Eos % (Auto) Lymph # [place] # Eos # Seg Neutrophils % Seg Neuts % (Manual) 83.0 H Lymphocytes % (Manual) 3.0 L Monocytes % (Manual) 9.0 H Eosinophils % (Manual) Nucleated RBC % Seg Neutrophils # Seg Neutrophils # Man 18.4 H Lymphocytes # (Manual) 0.7 L Monocytes # (Manual) 2.0 H Eosinophils # (Manual) PT INR POC ABG pH POC ABG pCO2 POC ABG pO2 Sodium 152 H Potassium Chloride 117.1 H Carbon Dioxide 17 L BUN 66 H Creatinine 2.8 H Glucose 119 H POC Glucose Lactic Acid Calcium 7.8 L Magnesium 2.70 H AST ALT Alkaline Phosphatase Troponin T C-Reactive Protein Total Protein Albumin LDL Cholesterol Direct HDL Cholesterol Hepatitis C Antibody Crossmatch Crossmatch [place] 11/20/17 11/20/17 11/20/17 03:29 04:48 13:38 WBC RBC Hgb Hct MCV MCH MCHC RDW Plt Count Lymph % (Auto) [place] % (Auto) Eos % (Auto) Lymph # [place] # Eos # Seg Neutrophils % Seg Neuts % (Manual) Lymphocytes % (Manual) Monocytes % (Manual) Eosinophils % (Manual) Nucleated RBC % Seg Neutrophils # Seg Neutrophils # Man Lymphocytes # (Manual) Monocytes # (Manual) Eosinophils # (Manual) PT INR POC ABG pH POC ABG pCO2 29.4 L POC ABG pO2 Sodium 148 H Potassium 3.4 L Chloride 113.7 H Carbon Dioxide 18 L BUN 59 H Creatinine 2.7 H Glucose 113 H POC Glucose 128 H Lactic Acid Calcium 7.8 L Magnesium AST ALT Alkaline Phosphatase Troponin T C-Reactive Protein Total Protein Albumin LDL Cholesterol Direct HDL Cholesterol Hepatitis C Antibody Crossmatch Crossmatch [place] 11/20/17 11/20/17 11/21/17 17:38 23:40 00:13 WBC RBC Hgb 8.4 L Hct 28.0 L MCV MCH MCHC RDW Plt Count Lymph % (Auto) [place] % (Auto) Eos % (Auto) Lymph # [place] # Eos # Seg Neutrophils % Seg Neuts % (Manual) Lymphocytes % (Manual) Monocytes % (Manual) Eosinophils % (Manual) Nucleated RBC % Seg Neutrophils # Seg Neutrophils # Man Lymphocytes # (Manual) Monocytes # (Manual) Eosinophils # (Manual) PT INR POC ABG pH POC ABG pCO2 POC ABG pO2 Sodium Potassium Chloride Carbon Dioxide BUN Creatinine Glucose POC Glucose 115 H 145 H Lactic Acid Calcium Magnesium AST ALT Alkaline Phosphatase Troponin T C-Reactive Protein Total Protein Albumin LDL Cholesterol Direct HDL Cholesterol Hepatitis C Antibody Crossmatch Crossmatch [place] 11/21/17 11/21/17 11/21/17 04:30 04:30 04:58 WBC 21.0 H RBC Hgb 9.6 L Hct 32.7 L MCV MCH 25 L MCHC 29 L RDW 19.7 H Plt Count 746 H Lymph % (Auto) [place] % (Auto) Eos % (Auto) Lymph # [place] # Eos # Seg Neutrophils % Seg Neuts % (Manual) Lymphocytes % (Manual) Monocytes % (Manual) Eosinophils % (Manual) Nucleated RBC % Seg Neutrophils # Seg Neutrophils # Man Lymphocytes # (Manual) Monocytes # (Manual) Eosinophils # (Manual) PT INR POC ABG pH POC ABG pCO2 POC ABG pO2 Sodium Potassium Chloride 109.4 H Carbon Dioxide 14 L BUN 59 H Creatinine 3.0 H Glucose 137 H POC Glucose 132 H Lactic Acid Calcium 7.6 L Magnesium AST ALT Alkaline Phosphatase Troponin T C-Reactive Protein Total Protein Albumin LDL Cholesterol Direct HDL Cholesterol Hepatitis C Antibody Crossmatch Crossmatch [place] 11/21/17 11/21/17 11/21/17 06:30 13:43 14:17 WBC 38.2 H RBC Hgb 9.0 L Hct 32.3 L MCV MCH 25 L MCHC 28 L RDW 20.0 H Plt Count 766 H Lymph % (Auto) [place] % (Auto) Eos % (Auto) Lymph # [place] # Eos # Seg Neutrophils % Seg Neuts % (Manual) 85.0 H Lymphocytes % (Manual) 1.0 L Monocytes % (Manual) Eosinophils % (Manual) Nucleated RBC % 2.0 H Seg Neutrophils # Seg Neutrophils # Man 32.5 H Lymphocytes # (Manual) 0.4 L Monocytes # (Manual) 2.3 H Eosinophils # (Manual) PT INR POC ABG pH POC ABG pCO2 18.6 L POC ABG pO2 121 H Sodium 146 H Potassium Chloride 110.9 H Carbon Dioxide 11 L BUN 62 H Creatinine 4.0 H Glucose 64 L POC Glucose Lactic Acid Calcium 7.6 L Magnesium AST ALT Alkaline Phosphatase Troponin T C-Reactive Protein Total Protein Albumin LDL Cholesterol Direct HDL Cholesterol Hepatitis C Antibody Crossmatch Crossmatch [place] 11/21/17 11/21/17 11/22/17 14:17 19:09 00:05 WBC RBC Hgb Hct MCV MCH MCHC RDW Plt Count Lymph % (Auto) [place] % (Auto) Eos % (Auto) Lymph # [place] # Eos # Seg Neutrophils % Seg Neuts % (Manual) Lymphocytes % (Manual) Monocytes % (Manual) Eosinophils % (Manual) Nucleated RBC % Seg Neutrophils # Seg Neutrophils # Man Lymphocytes # (Manual) Monocytes # (Manual) Eosinophils # (Manual) PT INR POC ABG pH POC ABG pCO2 20.0 L POC ABG pO2 Sodium Potassium Chloride Carbon Dioxide BUN Creatinine Glucose POC Glucose 127 H Lactic Acid 7.70 H* Calcium Magnesium AST ALT Alkaline Phosphatase Troponin T C-Reactive Protein Total Protein Albumin LDL Cholesterol Direct HDL Cholesterol Hepatitis C Antibody Crossmatch Crossmatch [place] 11/22/17 11/22/17 11/22/17 03:53 06:00 07:25 WBC RBC Hgb Hct MCV MCH MCHC RDW Plt Count Lymph % (Auto) [place] % (Auto) Eos % (Auto) Lymph # [place] # Eos # Seg Neutrophils % Seg Neuts % (Manual) Lymphocytes % (Manual) Monocytes % (Manual) Eosinophils % (Manual) Nucleated RBC % Seg Neutrophils # Seg Neutrophils # Man Lymphocytes # (Manual) Monocytes # (Manual) Eosinophils # (Manual) PT INR POC ABG pH POC ABG pCO2 22.2 L POC ABG pO2 Sodium 147 H Potassium Chloride 111.9 H Carbon Dioxide 16 L BUN 72 H Creatinine 5.1 H Glucose 181 H POC Glucose 180 H Lactic Acid Calcium 7.1 L Magnesium AST ALT Alkaline Phosphatase Troponin T C-Reactive Protein Total Protein Albumin LDL Cholesterol Direct HDL Cholesterol Hepatitis C Antibody Crossmatch Crossmatch [place] 09/05/1011/22/17 11/22/17 07:25 07:25 12:05 WBC 31.4 H RBC 3.22 L Hgb 8.0 L Hct 26.7 L MCV 83 L MCH 25 L MCHC 30 L RDW 19.4 H Plt Count 602 H Lymph % (Auto) [place] % (Auto) Eos % (Auto) Lymph # [place] # Eos # Seg Neutrophils % Seg Neuts % (Manual) Lymphocytes % (Manual) Monocytes % (Manual) Eosinophils % (Manual) Nucleated RBC % Seg Neutrophils # Seg Neutrophils # Man Lymphocytes # (Manual) Monocytes # (Manual) Eosinophils # (Manual) PT INR POC ABG pH POC ABG pCO2 POC ABG pO2 Sodium Potassium Chloride Carbon Dioxide BUN Creatinine Glucose POC Glucose 182 H Lactic Acid 5.00 H* Calcium Magnesium AST ALT Alkaline Phosphatase Troponin T C-Reactive Protein Total Protein Albumin LDL Cholesterol Direct HDL Cholesterol Hepatitis C Antibody Crossmatch Crossmatch [place] 11/22/17 11/23/17 11/23/17 19:45 01:28 04:56 WBC RBC Hgb Hct MCV MCH MCHC RDW Plt Count Lymph % (Auto) [place] % (Auto) Eos % (Auto) Lymph # [place] # Eos # Seg Neutrophils % Seg Neuts % (Manual) Lymphocytes % (Manual) Monocytes % (Manual) Eosinophils % (Manual) Nucleated RBC % Seg Neutrophils # Seg Neutrophils # Man Lymphocytes # (Manual) Monocytes # (Manual) Eosinophils # (Manual) PT INR POC ABG pH 7.505 H POC ABG pCO2 26.3 L POC ABG pO2 Sodium Potassium Chloride Carbon Dioxide BUN Creatinine Glucose POC Glucose 165 H Lactic Acid Calcium Magnesium AST ALT Alkaline Phosphatase Troponin T C-Reactive Protein Total Protein Albumin LDL Cholesterol Direct HDL Cholesterol Hepatitis C Antibody Reactive A Crossmatch Crossmatch [place] 11/23/17 11/23/17 11/23/17 07:05 12:32 17:53 WBC RBC Hgb Hct MCV MCH MCHC RDW Plt Count Lymph % (Auto) [place] % (Auto) Eos % (Auto) Lymph # [place] # Eos # Seg Neutrophils % Seg Neuts % (Manual) Lymphocytes % (Manual) Monocytes % (Manual) Eosinophils % (Manual) Nucleated RBC % Seg Neutrophils # Seg Neutrophils # Man Lymphocytes # (Manual) Monocytes # (Manual) Eosinophils # (Manual) PT INR POC ABG pH POC ABG pCO2 POC ABG pO2 Sodium Potassium Chloride Carbon Dioxide 18 L BUN 61 H Creatinine 4.2 H Glucose 153 H POC Glucose 138 H 173 H Lactic Acid Calcium 7.5 L Magnesium AST ALT Alkaline Phosphatase Troponin T C-Reactive Protein Total Protein Albumin LDL Cholesterol Direct HDL Cholesterol Hepatitis C Antibody Crossmatch Crossmatch [place] 11/23/17 11/24/17 11/24/17 23:41 05:42 05:42 WBC 21.5 H RBC 2.48 L Hgb 6.2 L Hct 20.3 L D MCV 82 L MCH 25 L MCHC 31 L RDW 18.9 H Plt Count Lymph % (Auto) [place] % (Auto) Eos % (Auto) Lymph # [place] # Eos # Seg Neutrophils % Seg Neuts % (Manual) 94.0 H Lymphocytes % (Manual) 3.0 L Monocytes % (Manual) Eosinophils % (Manual) Nucleated RBC % Seg Neutrophils # Seg Neutrophils # Man 20.2 H Lymphocytes # (Manual) 0.6 L Monocytes # (Manual) Eosinophils # (Manual) PT INR POC ABG pH POC ABG pCO2 POC ABG pO2 Sodium 149 H Potassium 2.8 L* D Chloride 113.9 H Carbon Dioxide 19 L BUN 31 H Creatinine 2.3 H Glucose 103 H POC Glucose 133 H Lactic Acid Calcium 5.3 L* D Magnesium 1.30 L AST ALT Alkaline Phosphatase Troponin T C-Reactive Protein Total Protein Albumin LDL Cholesterol Direct HDL Cholesterol Hepatitis C Antibody Crossmatch Crossmatch [place] 11/24/17 11/24/17 11/24/17 05:42 08:27 08:27 WBC RBC Hgb Hct MCV MCH MCHC RDW Plt Count Lymph % (Auto) [place] % (Auto) Eos % (Auto) Lymph # [place] # Eos # Seg Neutrophils % Seg Neuts % (Manual) Lymphocytes % (Manual) Monocytes % (Manual) Eosinophils % (Manual) Nucleated RBC % Seg Neutrophils # Seg Neutrophils # Man Lymphocytes # (Manual) Monocytes # (Manual) Eosinophils # (Manual) PT INR POC ABG pH POC ABG pCO2 POC ABG pO2 Sodium Potassium Chloride Carbon Dioxide BUN Creatinine Glucose POC Glucose Lactic Acid 5.40 H* 5.20 H* Calcium Magnesium AST ALT Alkaline Phosphatase Troponin T C-Reactive Protein Total Protein Albumin LDL Cholesterol Direct HDL Cholesterol Hepatitis C Antibody Crossmatch See Detail Crossmatch [place] 11/24/17 11/24/17 11/24/17 12:13 17:22 21:53 WBC 23.0 H RBC 3.32 L Hgb 8.8 L Hct 27.1 L D MCV 82 L MCH 26 L MCHC RDW 17.3 H Plt Count Lymph % (Auto) [place] % (Auto) Eos % (Auto) Lymph # [place] # Eos # Seg Neutrophils % Seg Neuts % (Manual) Lymphocytes % (Manual) Monocytes % (Manual) Eosinophils % (Manual) Nucleated RBC % Seg Neutrophils # Seg Neutrophils # Man Lymphocytes # (Manual) Monocytes # (Manual) Eosinophils # (Manual) PT INR POC ABG pH POC ABG pCO2 POC ABG pO2 Sodium Potassium Chloride Carbon Dioxide BUN Creatinine Glucose POC Glucose 138 H 180 H Lactic Acid Calcium Magnesium AST ALT Alkaline Phosphatase Troponin T C-Reactive Protein Total Protein Albumin LDL Cholesterol Direct HDL Cholesterol Hepatitis C Antibody Crossmatch Crossmatch [place] 11/24/17 11/24/17 11/25/17 21:53 23:28 04:19 WBC RBC Hgb Hct MCV MCH MCHC RDW Plt Count Lymph % (Auto) [place] % (Auto) Eos % (Auto) Lymph # [place] # Eos # Seg Neutrophils % Seg Neuts % (Manual) Lymphocytes % (Manual) Monocytes % (Manual) Eosinophils % (Manual) Nucleated RBC % Seg Neutrophils # Seg Neutrophils # Man Lymphocytes # (Manual) Monocytes # (Manual) Eosinophils # (Manual) PT INR POC ABG pH POC ABG pCO2 POC ABG pO2 Sodium Potassium Chloride 96.3 L Carbon Dioxide BUN 28 H 31 H Creatinine 2.3 H 2.6 H Glucose 125 H 101 H POC Glucose 111 H Lactic Acid Calcium 7.5 L D 7.4 L Magnesium AST 170 H ALT 179 H Alkaline Phosphatase 175 H Troponin T C-Reactive Protein Total Protein 5.5 L Albumin 1.8 L LDL Cholesterol Direct HDL Cholesterol Hepatitis C Antibody Crossmatch Crossmatch [place] 11/25/17 11/25/17 11/26/17 04:19 04:19 06:29 WBC 22.5 H RBC 3.48 L Hgb 9.1 L Hct 28.3 L MCV 81 L MCH 26 L MCHC RDW 17.4 H Plt Count Lymph % (Auto) [place] % (Auto) Eos % (Auto) Lymph # [place] # Eos # Seg Neutrophils % Seg Neuts % (Manual) Lymphocytes % (Manual) Monocytes % (Manual) Eosinophils % (Manual) Nucleated RBC % Seg Neutrophils # Seg Neutrophils # Man Lymphocytes # (Manual) Monocytes # (Manual) Eosinophils # (Manual) PT 23.6 H INR 1.96 H POC ABG pH POC ABG pCO2 POC ABG pO2 Sodium Potassium Chloride Carbon Dioxide BUN 31 H Creatinine 2.6 H Glucose 101 H POC Glucose Lactic Acid Calcium 7.5 L Magnesium AST ALT Alkaline Phosphatase Troponin T C-Reactive Protein Total Protein Albumin LDL Cholesterol Direct HDL Cholesterol Hepatitis C Antibody Crossmatch Crossmatch [place] 11/26/17 11/27/17 11/27/17 06:34 04:06 04:06 WBC 11.3 H RBC 3.13 L Hgb 8.4 L Hct 25.8 L MCV 82 L MCH 27 L MCHC RDW 17.7 H Plt Count Lymph % (Auto) 7.4 L [place] % (Auto) Eos % (Auto) Lymph # 0.8 L [place] # Eos # Seg Neutrophils % 83.7 H Seg Neuts % (Manual) Lymphocytes % (Manual) Monocytes % (Manual) Eosinophils % (Manual) Nucleated RBC % Seg Neutrophils # 9.5 H Seg Neutrophils # Man Lymphocytes # (Manual) Monocytes # (Manual) Eosinophils # (Manual) PT INR POC ABG pH POC ABG pCO2 POC ABG pO2 Sodium Potassium Chloride 97.9 L Carbon Dioxide BUN 43 H 29 H Creatinine 3.5 H 2.9 H Glucose POC Glucose Lactic Acid Calcium 7.5 L 8.1 L Magnesium AST ALT Alkaline Phosphatase Troponin T C-Reactive Protein Total Protein Albumin LDL Cholesterol Direct HDL Cholesterol Hepatitis C Antibody Crossmatch Crossmatch [place] 11/27/17 11/28/17 11/28/17 18:11 00:16 03:50 WBC RBC Hgb Hct MCV MCH MCHC RDW Plt Count Lymph % (Auto) [place] % (Auto) Eos % (Auto) Lymph # [place] # Eos # Seg Neutrophils % Seg Neuts % (Manual) Lymphocytes % (Manual) Monocytes % (Manual) Eosinophils % (Manual) Nucleated RBC % Seg Neutrophils # Seg Neutrophils # Man Lymphocytes # (Manual) Monocytes # (Manual) Eosinophils # (Manual) PT INR POC ABG pH POC ABG pCO2 POC ABG pO2 Sodium Potassium Chloride Carbon Dioxide BUN 39 H Creatinine 4.1 H Glucose 108 H POC Glucose 110 H 124 H Lactic Acid Calcium 7.9 L Magnesium AST ALT Alkaline Phosphatase Troponin T C-Reactive Protein Total Protein Albumin LDL Cholesterol Direct HDL Cholesterol Hepatitis C Antibody Crossmatch Crossmatch [facility] 11/28/17 11/28/17 11/28/17 05:03 11:36 17:42 WBC RBC Hgb Hct MCV MCH MCHC RDW Plt Count Lymph % (Auto) [place] % (Auto) Eos % (Auto) Lymph # [place] # Eos # Seg Neutrophils % Seg Neuts % (Manual) Lymphocytes % (Manual) Monocytes % (Manual) Eosinophils % (Manual) Nucleated RBC % Seg Neutrophils # Seg Neutrophils # Man Lymphocytes # (Manual) Monocytes # (Manual) Eosinophils # (Manual) PT INR POC ABG pH POC ABG pCO2 POC ABG pO2 Sodium Potassium Chloride Carbon Dioxide BUN Creatinine Glucose POC Glucose 134 H 114 H 119 H Lactic Acid Calcium Magnesium AST ALT Alkaline Phosphatase Troponin T C-Reactive Protein Total Protein Albumin LDL Cholesterol Direct HDL Cholesterol Hepatitis C Antibody Crossmatch Crossmatch [facility] 11/29/17 11/29/17 11/29/17 00:22 05:25 05:25 WBC 12.3 H RBC 3.34 L Hgb 8.6 L Hct 27.3 L MCV 82 L MCH 26 L MCHC RDW 18.5 H Plt Count Lymph % (Auto) 3.7 L [place] % (Auto) 7.7 H Eos % (Auto) Lymph # 0.5 L [place] # 1.0 H Eos # Seg Neutrophils % 86.5 H Seg Neuts % (Manual) Lymphocytes % (Manual) Monocytes % (Manual) Eosinophils % (Manual) Nucleated RBC % Seg Neutrophils # 10.7 H Seg Neutrophils # Man Lymphocytes # (Manual) Monocytes # (Manual) Eosinophils # (Manual) PT INR POC ABG pH POC ABG pCO2 POC ABG pO2 Sodium Potassium Chloride Carbon Dioxide BUN 29 H Creatinine 3.5 H Glucose 109 H POC Glucose 137 H Lactic Acid Calcium 7.8 L Magnesium AST ALT Alkaline Phosphatase Troponin T C-Reactive Protein Total Protein Albumin LDL Cholesterol Direct HDL Cholesterol Hepatitis C Antibody Crossmatch Crossmatch [place] 11/29/17 11/30/17 11/30/17 05:26 00:26 04:17 WBC RBC Hgb Hct MCV MCH MCHC RDW Plt Count Lymph % (Auto) [place] % (Auto) Eos % (Auto) Lymph # [place] # Eos # Seg Neutrophils % Seg Neuts % (Manual) Lymphocytes % (Manual) Monocytes % (Manual) Eosinophils % (Manual) Nucleated RBC % Seg Neutrophils # Seg Neutrophils # Man Lymphocytes # (Manual) Monocytes # (Manual) Eosinophils # (Manual) PT INR POC ABG pH POC ABG pCO2 POC ABG pO2 Sodium Potassium Chloride Carbon Dioxide BUN 38 H Creatinine 4.3 H Glucose 109 H POC Glucose 129 H 152 H Lactic Acid Calcium 7.8 L Magnesium AST ALT Alkaline Phosphatase Troponin T C-Reactive Protein Total Protein Albumin LDL Cholesterol Direct HDL Cholesterol Hepatitis C Antibody Crossmatch Crossmatch [place] 11/30/17 11/30/17 11/30/17 12:17 16:23 23:35 WBC RBC Hgb Hct MCV MCH MCHC RDW Plt Count Lymph % (Auto) [place] % (Auto) Eos % (Auto) Lymph # [place] # Eos # Seg Neutrophils % Seg Neuts % (Manual) Lymphocytes % (Manual) Monocytes % (Manual) Eosinophils % (Manual) Nucleated RBC % Seg Neutrophils # Seg Neutrophils # Man Lymphocytes # (Manual) Monocytes # (Manual) Eosinophils # (Manual) PT INR POC ABG pH POC ABG pCO2 POC ABG pO2 Sodium Potassium Chloride Carbon Dioxide BUN Creatinine Glucose POC Glucose 170 H 114 H 122 H Lactic Acid Calcium Magnesium AST ALT Alkaline Phosphatase Troponin T C-Reactive Protein Total Protein Albumin LDL Cholesterol Direct HDL Cholesterol Hepatitis C Antibody Crossmatch Crossmatch [facility] 12/01/17 12/01/17 12/01/17 04:09 04:09 12:17 WBC 14.1 H RBC 3.32 L Hgb 8.6 L Hct 27.0 L MCV 81 L MCH 26 L MCHC RDW 18.7 H Plt Count Lymph % (Auto) 5.5 L [place] % (Auto) 9.7 H Eos % (Auto) Lymph # 0.8 L [place] # 1.4 H Eos # Seg Neutrophils % 82.9 H Seg Neuts % (Manual) Lymphocytes % (Manual) Monocytes % (Manual) Eosinophils % (Manual) Nucleated RBC % Seg Neutrophils # 11.7 H Seg Neutrophils # Man Lymphocytes # (Manual) Monocytes # (Manual) Eosinophils # (Manual) PT INR POC ABG pH POC ABG pCO2 POC ABG pO2 Sodium Potassium 3.4 L Chloride Carbon Dioxide BUN 21 H Creatinine 3.0 H Glucose 108 H POC Glucose 126 H Lactic Acid Calcium 8.0 L Magnesium AST ALT Alkaline Phosphatase Troponin T C-Reactive Protein Total Protein Albumin LDL Cholesterol Direct HDL Cholesterol Hepatitis C Antibody Crossmatch Crossmatch [facility] 12/02/17 12/03/1712/03/18 23:46 02:52 05:54 WBC 17.2 H RBC 3.21 L Hgb 8.5 L Hct 25.8 L MCV 80 L MCH 26 L MCHC RDW 18.4 H Plt Count 128 L Lymph % (Auto) [place] % (Auto) Eos % (Auto) Lymph # [place] # Eos # Seg Neutrophils % Seg Neuts % (Manual) Lymphocytes % (Manual) Monocytes % (Manual) Eosinophils % (Manual) Nucleated RBC % Seg Neutrophils # Seg Neutrophils # Man Lymphocytes # (Manual) Monocytes # (Manual) Eosinophils # (Manual) PT INR POC ABG pH POC ABG pCO2 POC ABG pO2 Sodium Potassium Chloride Carbon Dioxide BUN Creatinine Glucose POC Glucose 125 H 107 H Lactic Acid Calcium Magnesium AST ALT Alkaline Phosphatase Troponin T C-Reactive Protein Total Protein Albumin LDL Cholesterol Direct HDL Cholesterol Hepatitis C Antibody Crossmatch Crossmatch [place] 12/03/17 12/03/17 12/04/17 12:05 Unknown 12:26 WBC RBC Hgb Hct MCV MCH MCHC RDW Plt Count Lymph % (Auto) [place] % (Auto) Eos % (Auto) Lymph # [place] # Eos # Seg Neutrophils % Seg Neuts % (Manual) Lymphocytes % (Manual) Monocytes % (Manual) Eosinophils % (Manual) Nucleated RBC % Seg Neutrophils # Seg Neutrophils # Man Lymphocytes # (Manual) Monocytes # (Manual) Eosinophils # (Manual) PT INR POC ABG pH POC ABG pCO2 POC ABG pO2 Sodium Potassium Chloride Carbon Dioxide BUN 21 H Creatinine 2.8 H Glucose 113 H POC Glucose 106 H 119 H Lactic Acid Calcium Magnesium AST ALT Alkaline Phosphatase Troponin T C-Reactive Protein Total Protein Albumin LDL Cholesterol Direct HDL Cholesterol Hepatitis C Antibody Crossmatch Crossmatch [facility] 12/04/17 12/05/17 12/05/17 17:57 00:52 04:05 WBC RBC 2.96 L Hgb 7.7 L Hct 24.2 L MCV 82 L MCH 26 L MCHC RDW 18.8 H Plt Count 105 L Lymph % (Auto) 10.6 L [place] % (Auto) 12.1 H Eos % (Auto) 5.2 H Lymph # 1.1 L [place] # 1.3 H Eos # 0.5 H Seg Neutrophils % 71.3 H Seg Neuts % (Manual) Lymphocytes % (Manual) Monocytes % (Manual) Eosinophils % (Manual) Nucleated RBC % Seg Neutrophils # Seg Neutrophils # Man Lymphocytes # (Manual) Monocytes # (Manual) Eosinophils # (Manual) PT INR POC ABG pH POC ABG pCO2 POC ABG pO2 Sodium Potassium Chloride Carbon Dioxide BUN Creatinine Glucose POC Glucose 140 H 117 H Lactic Acid Calcium Magnesium AST ALT Alkaline Phosphatase Troponin T C-Reactive Protein Total Protein Albumin LDL Cholesterol Direct HDL Cholesterol Hepatitis C Antibody Crossmatch Crossmatch [place] 12/05/17 12/05/17 12/06/17 04:05 22:50 08:18 WBC RBC 2.80 L Hgb 7.4 L Hct 23.0 L MCV 82 L MCH 27 L MCHC RDW 19.5 H Plt Count 125 L Lymph % (Auto) [place] % (Auto) Eos % (Auto) Lymph # [place] # Eos # Seg Neutrophils % Seg Neuts % (Manual) Lymphocytes % (Manual) Monocytes % (Manual) Eosinophils % (Manual) Nucleated RBC % Seg Neutrophils # Seg Neutrophils # Man Lymphocytes # (Manual) Monocytes # (Manual) Eosinophils # (Manual) PT INR POC ABG pH POC ABG pCO2 POC ABG pO2 Sodium Potassium Chloride 107.4 H Carbon Dioxide BUN Creatinine 2.5 H Glucose POC Glucose 112 H Lactic Acid Calcium 8.3 L Magnesium AST ALT Alkaline Phosphatase Troponin T C-Reactive Protein Total Protein Albumin LDL Cholesterol Direct HDL Cholesterol Hepatitis C Antibody Crossmatch Crossmatch [place] 12/06/17 12/06/17 12/06/17 08:18 12:01 23:58 WBC RBC Hgb Hct MCV MCH MCHC RDW Plt Count Lymph % (Auto) [place] % (Auto) Eos % (Auto) Lymph # [place] # Eos # Seg Neutrophils % Seg Neuts % (Manual) Lymphocytes % (Manual) Monocytes % (Manual) Eosinophils % (Manual) Nucleated RBC % Seg Neutrophils # Seg Neutrophils # Man Lymphocytes # (Manual) Monocytes # (Manual) Eosinophils # (Manual) PT INR POC ABG pH POC ABG pCO2 POC ABG pO2 Sodium Potassium Chloride 108.4 H Carbon Dioxide BUN 28 H Creatinine 3.7 H Glucose 103 H POC Glucose 106 H 108 H Lactic Acid Calcium 8.0 L Magnesium AST ALT Alkaline Phosphatase Troponin T C-Reactive Protein Total Protein Albumin LDL Cholesterol Direct HDL Cholesterol Hepatitis C Antibody Crossmatch Crossmatch [facility] 12/07/17 12/07/17 12/07/17 05:47 05:47 18:03 WBC RBC 2.79 L Hgb 7.3 L Hct 22.8 L MCV 82 L MCH 26 L MCHC RDW 19.1 H Plt Count 101 L Lymph % (Auto) [place] % (Auto) Eos % (Auto) Lymph # [place] # Eos # Seg Neutrophils % Seg Neuts % (Manual) 72.0 H Lymphocytes % (Manual) 13.0 L Monocytes % (Manual) Eosinophils % (Manual) 9.0 H Nucleated RBC % Seg Neutrophils # Seg Neutrophils # Man Lymphocytes # (Manual) 1.1 L Monocytes # (Manual) Eosinophils # (Manual) 0.8 H PT INR POC ABG pH POC ABG pCO2 POC ABG pO2 Sodium 146 H Potassium Chloride 109.8 H Carbon Dioxide BUN 36 H Creatinine 4.0 H Glucose POC Glucose 143 H Lactic Acid Calcium 8.0 L Magnesium AST ALT Alkaline Phosphatase Troponin T C-Reactive Protein Total Protein Albumin LDL Cholesterol Direct HDL Cholesterol Hepatitis C Antibody Crossmatch Crossmatch [place] 12/07/17 12/08/17 12/08/17 23:33 05:10 05:10 WBC RBC 2.91 L Hgb 7.5 L Hct 24.4 L MCV MCH 26 L MCHC 31 L RDW 19.7 H Plt Count 109 L Lymph % (Auto) [place] % (Auto) Eos % (Auto) Lymph # [place] # Eos # Seg Neutrophils % Seg Neuts % (Manual) Lymphocytes % (Manual) 11.0 L Monocytes % (Manual) Eosinophils % (Manual) 12.0 H Nucleated RBC % Seg Neutrophils # Seg Neutrophils # Man Lymphocytes # (Manual) 0.7 L Monocytes # (Manual) Eosinophils # (Manual) 0.7 H PT INR POC ABG pH POC ABG pCO2 POC ABG pO2 Sodium 147 H Potassium Chloride 110.4 H Carbon Dioxide BUN Creatinine 2.8 H Glucose POC Glucose 107 H Lactic Acid Calcium 7.8 L Magnesium AST ALT Alkaline Phosphatase Troponin T C-Reactive Protein Total Protein Albumin LDL Cholesterol Direct HDL Cholesterol Hepatitis C Antibody Crossmatch Crossmatch [place] 12/09/17 12/09/17 12/09/17 04:18 04:18 12:16 WBC RBC Hgb 7.2 L Hct 23.2 L MCV MCH MCHC RDW Plt Count Lymph % (Auto) [place] % (Auto) Eos % (Auto) Lymph # [place] # Eos # Seg Neutrophils % Seg Neuts % (Manual) Lymphocytes % (Manual) Monocytes % (Manual) Eosinophils % (Manual) Nucleated RBC % Seg Neutrophils # Seg Neutrophils # Man Lymphocytes # (Manual) Monocytes # (Manual) Eosinophils # (Manual) PT INR POC ABG pH POC ABG pCO2 POC ABG pO2 Sodium 150 H Potassium Chloride 114.5 H Carbon Dioxide BUN 25 H Creatinine 3.3 H Glucose POC Glucose 142 H Lactic Acid Calcium 7.7 L Magnesium AST ALT Alkaline Phosphatase Troponin T C-Reactive Protein Total Protein Albumin LDL Cholesterol Direct HDL Cholesterol Hepatitis C Antibody Crossmatch Crossmatch [place] 12/10/17 12/10/17 12/11/17 05:14 05:14 12:05 WBC RBC 2.81 L Hgb 7.4 L Hct 23.9 L MCV MCH 26 L MCHC 31 L RDW 19.1 H Plt Count 128 L Lymph % (Auto) [place] % (Auto) Eos % (Auto) Lymph # [place] # Eos # Seg Neutrophils % Seg Neuts % (Manual) 78.0 H Lymphocytes % (Manual) 8.0 L Monocytes % (Manual) Eosinophils % (Manual) 5.0 H Nucleated RBC % Seg Neutrophils # Seg Neutrophils # Man Lymphocytes # (Manual) 0.6 L Monocytes # (Manual) Eosinophils # (Manual) PT INR POC ABG pH POC ABG pCO2 POC ABG pO2 Sodium Potassium Chloride Carbon Dioxide BUN Creatinine 2.2 H Glucose POC Glucose 127 H Lactic Acid Calcium 7.8 L Magnesium AST ALT Alkaline Phosphatase Troponin T C-Reactive Protein Total Protein Albumin LDL Cholesterol Direct HDL Cholesterol Hepatitis C Antibody Crossmatch Crossmatch [place] 12/11/17 12/11/17 12/11/17 15:26 18:36 23:40 WBC RBC Hgb Hct MCV MCH MCHC RDW Plt Count Lymph % (Auto) [place] % (Auto) Eos % (Auto) Lymph # [place] # Eos # Seg Neutrophils % Seg Neuts % (Manual) Lymphocytes % (Manual) Monocytes % (Manual) Eosinophils % (Manual) Nucleated RBC % Seg Neutrophils # Seg Neutrophils # Man Lymphocytes # (Manual) Monocytes # (Manual) Eosinophils # (Manual) PT INR POC ABG pH POC ABG pCO2 POC ABG pO2 Sodium Potassium 3.3 L Chloride Carbon Dioxide BUN Creatinine 1.6 H Glucose POC Glucose 106 H 110 H Lactic Acid Calcium 7.6 L Magnesium AST ALT Alkaline Phosphatase Troponin T C-Reactive Protein Total Protein Albumin LDL Cholesterol Direct HDL Cholesterol Hepatitis C Antibody Crossmatch Crossmatch [place] 12/12/17 12/12/17 12/12/17 05:10 05:41 05:41 WBC RBC 3.17 L Hgb 8.1 L Hct 25.7 L MCV 81 L MCH 25 L MCHC 31 L RDW 19.2 H Plt Count Lymph % (Auto) [place] % (Auto) Eos % (Auto) Lymph # [place] # Eos # Seg Neutrophils % Seg Neuts % (Manual) 74.0 H Lymphocytes % (Manual) 6.0 L Monocytes % (Manual) Eosinophils % (Manual) 9.0 H Nucleated RBC % Seg Neutrophils # Seg Neutrophils # Man Lymphocytes # (Manual) 0.6 L Monocytes # (Manual) Eosinophils # (Manual) 0.9 H PT INR POC ABG pH POC ABG pCO2 POC ABG pO2 Sodium Potassium 3.5 L Chloride Carbon Dioxide BUN Creatinine 2.3 H Glucose 113 H POC Glucose 112 H Lactic Acid Calcium 7.5 L Magnesium AST ALT Alkaline Phosphatase Troponin T C-Reactive Protein Total Protein Albumin LDL Cholesterol Direct HDL Cholesterol Hepatitis C Antibody Crossmatch Crossmatch [place] 12/13/17 12/13/17 12/13/17 06:14 12:00 17:37 WBC RBC Hgb Hct MCV MCH MCHC RDW Plt Count Lymph % (Auto) [place] % (Auto) Eos % (Auto) Lymph # [place] # Eos # Seg Neutrophils % Seg Neuts % (Manual) Lymphocytes % (Manual) Monocytes % (Manual) Eosinophils % (Manual) Nucleated RBC % Seg Neutrophils # Seg Neutrophils # Man Lymphocytes # (Manual) Monocytes # (Manual) Eosinophils # (Manual) PT INR POC ABG pH POC ABG pCO2 POC ABG pO2 Sodium Potassium Chloride Carbon Dioxide BUN Creatinine Glucose POC Glucose 130 H 133 H 136 H Lactic Acid Calcium Magnesium AST ALT Alkaline Phosphatase Troponin T C-Reactive Protein Total Protein Albumin LDL Cholesterol Direct HDL Cholesterol Hepatitis C Antibody Crossmatch Crossmatch [place] 12/13/17 12/14/17 12/14/17 23:39 05:11 05:11 WBC RBC Hgb Hct MCV MCH MCHC RDW Plt Count Lymph % (Auto) [place] % (Auto) Eos % (Auto) Lymph # [place] # Eos # Seg Neutrophils % Seg Neuts % (Manual) Lymphocytes % (Manual) Monocytes % (Manual) Eosinophils % (Manual) Nucleated RBC % Seg Neutrophils # Seg Neutrophils # Man Lymphocytes # (Manual) Monocytes # (Manual) Eosinophils # (Manual) PT 15.4 H INR 1.17 H POC ABG pH POC ABG pCO2 POC ABG pO2 Sodium Potassium Chloride Carbon Dioxide 21 L BUN 26 H Creatinine 2.9 H Glucose POC Glucose 108 H Lactic Acid Calcium 7.2 L Magnesium AST ALT Alkaline Phosphatase Troponin T C-Reactive Protein Total Protein Albumin LDL Cholesterol Direct HDL Cholesterol Hepatitis C Antibody Crossmatch Crossmatch [place] 12/14/17 12/14/17 12/14/17 12:00 16:01 18:24 WBC 12.9 H RBC 3.25 L Hgb 8.2 L Hct 26.2 L MCV 81 L MCH 25 L MCHC 31 L RDW 19.2 H Plt Count Lymph % (Auto) [place] % (Auto) Eos % (Auto) Lymph # [place] # Eos # Seg Neutrophils % Seg Neuts % (Manual) Lymphocytes % (Manual) Monocytes % (Manual) Eosinophils % (Manual) Nucleated RBC % Seg Neutrophils # Seg Neutrophils # Man Lymphocytes # (Manual) Monocytes # (Manual) Eosinophils # (Manual) PT INR POC ABG pH POC ABG pCO2 POC ABG pO2 Sodium Potassium Chloride Carbon Dioxide BUN Creatinine Glucose POC Glucose 138 H 120 H Lactic Acid Calcium Magnesium AST ALT Alkaline Phosphatase Troponin T C-Reactive Protein Total Protein Albumin LDL Cholesterol Direct HDL Cholesterol Hepatitis C Antibody Crossmatch Crossmatch [place] 12/14/17 12/14/17 12/15/17 23:29 Unknown 05:57 WBC 12.5 H RBC 2.48 L Hgb 6.0 L Hct 24.4 L MCV 79 L MCH 24 L MCHC 30 L RDW 18.5 H Plt Count 131 L Lymph % (Auto) 7.0 L [place] % (Auto) 8.9 H Eos % (Auto) 8.3 H Lymph # 0.9 L [place] # 1.1 H Eos # 1.0 H Seg Neutrophils % 75.2 H Seg Neuts % (Manual) Lymphocytes % (Manual) Monocytes % (Manual) Eosinophils % (Manual) Nucleated RBC % Seg Neutrophils # 9.4 H Seg Neutrophils # Man Lymphocytes # (Manual) Monocytes # (Manual) Eosinophils # (Manual) PT INR POC ABG pH POC ABG pCO2 POC ABG pO2 Sodium Potassium Chloride Carbon Dioxide BUN Creatinine Glucose POC Glucose 110 H 113 H Lactic Acid Calcium Magnesium AST ALT Alkaline Phosphatase Troponin T C-Reactive Protein Total Protein Albumin LDL Cholesterol Direct HDL Cholesterol Hepatitis C Antibody Crossmatch Crossmatch [place] 12/15/17 12/15/17 12/15/17 11:50 13:37 17:58 WBC RBC Hgb 7.3 L Hct 23.3 L MCV MCH MCHC RDW Plt Count Lymph % (Auto) [place] % (Auto) Eos % (Auto) Lymph # [place] # Eos # Seg Neutrophils % Seg Neuts % (Manual) Lymphocytes % (Manual) Monocytes % (Manual) Eosinophils % (Manual) Nucleated RBC % Seg Neutrophils # Seg Neutrophils # Man Lymphocytes # (Manual) Monocytes # (Manual) Eosinophils # (Manual) PT INR POC ABG pH POC ABG pCO2 POC ABG pO2 Sodium Potassium Chloride Carbon Dioxide BUN Creatinine Glucose POC Glucose 106 H 110 H Lactic Acid Calcium Magnesium AST ALT Alkaline Phosphatase Troponin T C-Reactive Protein Total Protein Albumin LDL Cholesterol Direct HDL Cholesterol Hepatitis C Antibody Crossmatch Crossmatch [place] 12/15/17 12/16/17 12/16/17 23:30 04:55 05:14 WBC 13.2 H RBC 2.79 L Hgb 6.9 L Hct 22.2 L MCV 80 L MCH 25 L MCHC 31 L RDW 18.8 H Plt Count Lymph % (Auto) 7.3 L [place] % (Auto) 11.0 H Eos % (Auto) 8.2 H Lymph # 1.0 L [place] # 1.4 H Eos # 1.1 H Seg Neutrophils % 72.9 H Seg Neuts % (Manual) Lymphocytes % (Manual) Monocytes % (Manual) Eosinophils % (Manual) Nucleated RBC % Seg Neutrophils # 9.6 H Seg Neutrophils # Man Lymphocytes # (Manual) Monocytes # (Manual) Eosinophils # (Manual) PT INR POC ABG pH POC ABG pCO2 POC ABG pO2 Sodium 131 L D Potassium 2.8 L* D Chloride 93.2 L Carbon Dioxide BUN 24 H Creatinine 2.0 H Glucose POC Glucose 111 H Lactic Acid Calcium 7.7 L Magnesium AST ALT Alkaline Phosphatase Troponin T C-Reactive Protein Total Protein Albumin LDL Cholesterol Direct HDL Cholesterol Hepatitis C Antibody Crossmatch Crossmatch [place] 12/16/17 12/16/17 12/16/17 13:01 17:32 23:39 WBC RBC Hgb Hct MCV MCH MCHC RDW Plt Count Lymph % (Auto) [place] % (Auto) Eos % (Auto) Lymph # [place] # Eos # Seg Neutrophils % Seg Neuts % (Manual) Lymphocytes % (Manual) Monocytes % (Manual) Eosinophils % (Manual) Nucleated RBC % Seg Neutrophils # Seg Neutrophils # Man Lymphocytes # (Manual) Monocytes # (Manual) Eosinophils # (Manual) PT INR POC ABG pH POC ABG pCO2 POC ABG pO2 Sodium Potassium Chloride Carbon Dioxide BUN Creatinine Glucose POC Glucose 121 H 107 H Lactic Acid Calcium Magnesium AST ALT Alkaline Phosphatase Troponin T C-Reactive Protein Total Protein Albumin LDL Cholesterol Direct HDL Cholesterol Hepatitis C Antibody Crossmatch Crossmatch [place] See Detail 12/17/17 12/17/17 12/17/17 05:08 05:08 12:03 WBC 12.9 H RBC 2.88 L Hgb 7.2 L Hct 22.6 L MCV 78 L MCH 25 L MCHC RDW 18.3 H Plt Count Lymph % (Auto) 8.0 L [place] % (Auto) 8.6 H Eos % (Auto) Lymph # 1.0 L [place] # 1.1 H Eos # Seg Neutrophils % 79.3 H Seg Neuts % (Manual) Lymphocytes % (Manual) Monocytes % (Manual) Eosinophils % (Manual) Nucleated RBC % Seg Neutrophils # 10.2 H Seg Neutrophils # Man Lymphocytes # (Manual) Monocytes # (Manual) Eosinophils # (Manual) PT INR POC ABG pH POC ABG pCO2 POC ABG pO2 Sodium Potassium 3.4 L D Chloride Carbon Dioxide BUN Creatinine Glucose 104 H POC Glucose 109 H Lactic Acid Calcium 7.6 L Magnesium 1.30 L AST ALT Alkaline Phosphatase 177 H Troponin T C-Reactive Protein Total Protein Albumin 2.0 L LDL Cholesterol Direct HDL Cholesterol Hepatitis C Antibody Crossmatch Crossmatch [place] 12/17/17 12/18/17 12/18/17 23:40 00:50 00:50 WBC 22.6 H RBC 2.76 L Hgb 6.7 L Hct 21.6 L MCV 78 L MCH 24 L MCHC 31 L RDW 18.4 H Plt Count Lymph % (Auto) [place] % (Auto) Eos % (Auto) Lymph # [place] # Eos # Seg Neutrophils % Seg Neuts % (Manual) Lymphocytes % (Manual) Monocytes % (Manual) Eosinophils % (Manual) Nucleated RBC % Seg Neutrophils # Seg Neutrophils # Man Lymphocytes # (Manual) Monocytes # (Manual) Eosinophils # (Manual) PT INR POC ABG pH POC ABG pCO2 POC ABG pO2 Sodium Potassium Chloride Carbon Dioxide BUN 22 H Creatinine 1.6 H Glucose 113 H POC Glucose 120 H Lactic Acid Calcium 7.8 L Magnesium 1.50 L AST ALT Alkaline Phosphatase Troponin T C-Reactive Protein Total Protein Albumin LDL Cholesterol Direct HDL Cholesterol Hepatitis C Antibody Crossmatch Crossmatch [place] 12/18/17 12/18/17 12/18/17 05:34 12:00 18:07 WBC RBC Hgb Hct MCV MCH MCHC RDW Plt Count Lymph % (Auto) [place] % (Auto) Eos % (Auto) Lymph # [place] # Eos # Seg Neutrophils % Seg Neuts % (Manual) Lymphocytes % (Manual) Monocytes % (Manual) Eosinophils % (Manual) Nucleated RBC % Seg Neutrophils # Seg Neutrophils # Man Lymphocytes # (Manual) Monocytes # (Manual) Eosinophils # (Manual) PT INR POC ABG pH POC ABG pCO2 POC ABG pO2 Sodium Potassium Chloride Carbon Dioxide BUN Creatinine Glucose POC Glucose 132 H 136 H 122 H Lactic Acid Calcium Magnesium AST ALT Alkaline Phosphatase Troponin T C-Reactive Protein Total Protein Albumin LDL Cholesterol Direct HDL Cholesterol Hepatitis C Antibody Crossmatch Crossmatch [place] 12/19/17 12/19/17 12/19/17 00:24 00:24 05:17 WBC 15.4 H RBC 2.41 L Hgb 6.1 L Hct 19.0 L* MCV 79 L MCH 25 L MCHC RDW 18.5 H Plt Count Lymph % (Auto) [place] % (Auto) Eos % (Auto) Lymph # [place] # Eos # Seg Neutrophils % Seg Neuts % (Manual) Lymphocytes % (Manual) Monocytes % (Manual) Eosinophils % (Manual) Nucleated RBC % Seg Neutrophils # Seg Neutrophils # Man Lymphocytes # (Manual) Monocytes # (Manual) Eosinophils # (Manual) PT INR POC ABG pH POC ABG pCO2 POC ABG pO2 Sodium Potassium 3.2 L Chloride Carbon Dioxide BUN Creatinine Glucose 117 H POC Glucose 132 H Lactic Acid Calcium 8.2 L Magnesium 1.50 L AST ALT Alkaline Phosphatase Troponin T C-Reactive Protein Total Protein Albumin LDL Cholesterol Direct HDL Cholesterol Hepatitis C Antibody Crossmatch Crossmatch [place] 12/19/17 12/19/17 12/19/17 09:00 09:00 18:01 WBC 12.4 H RBC 2.86 L Hgb 7.2 L Hct 22.6 L MCV 79 L MCH 25 L MCHC RDW 17.2 H Plt Count Lymph % (Auto) 6.8 L [place] % (Auto) 12.6 H Eos % (Auto) Lymph # 0.8 L [place] # 1.6 H Eos # Seg Neutrophils % 80.1 H Seg Neuts % (Manual) Lymphocytes % (Manual) Monocytes % (Manual) Eosinophils % (Manual) Nucleated RBC % Seg Neutrophils # 10.0 H Seg Neutrophils # Man Lymphocytes # (Manual) Monocytes # (Manual) Eosinophils # (Manual) PT INR POC ABG pH POC ABG pCO2 POC ABG pO2 Sodium Potassium 3.1 L Chloride Carbon Dioxide BUN 22 H Creatinine Glucose 113 H POC Glucose 117 H Lactic Acid Calcium 8.3 L Magnesium AST 54 H ALT Alkaline Phosphatase 204 H Troponin T C-Reactive Protein Total Protein 5.8 L Albumin 2.0 L LDL Cholesterol Direct HDL Cholesterol Hepatitis C Antibody Crossmatch Crossmatch [place] 12/19/17 12/20/17 23:49 05:53 WBC RBC Hgb Hct MCV MCH MCHC RDW Plt Count Lymph % (Auto) [place] % (Auto) Eos % (Auto) Lymph # [place] # Eos # Seg Neutrophils % Seg Neuts % (Manual) Lymphocytes % (Manual) Monocytes % (Manual) Eosinophils % (Manual) Nucleated RBC % Seg Neutrophils # Seg Neutrophils # Man Lymphocytes # (Manual) Monocytes # (Manual) Eosinophils # (Manual) PT INR POC ABG pH POC ABG pCO2 POC ABG pO2 Sodium Potassium Chloride Carbon Dioxide BUN Creatinine Glucose POC Glucose 125 H 124 H Lactic Acid Calcium Magnesium AST ALT Alkaline Phosphatase Troponin T C-Reactive Protein Total Protein Albumin LDL Cholesterol Direct HDL Cholesterol Hepatitis C Antibody Crossmatch Crossmatch [place]
--- NOTE | 2017-12-20 11:33 | Progress Note ---
Assessment and Plan Assessment and plan: Admitted 11/12/17 Mr. 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 He had a Carotid doppler done that revealed a right ICA 50-79% stenosis. CTA of the neck revealed 80% stenosis of the right ICA with probable 50% stenosis of the origin of the right common carotid artery. His symptoms were thought to be due to the Carotid artery stenosis which was disheartening since he was on Aspirin and plavix. He was scheduled for right CEA but needed Cardiac clearance. He underwent stress test on 10/05/17 and [facility] stated he was stable for non-cardiac history, low to moderate perioperative risk. So, he underwent right carotid enarterectomy on 10/09/17. Following the surgery, he developed recurrent left sided weakness/hemiparesis and was taken back to the OR on 10/10/17 for Open Thrombectomy of Right Internal Carotid Artery and Injection of TPA into the Distal Artery. CT head obtained 2 days after surgery on 10/12/17 showed massive right cerebral hemisphere acute CVA with midline shift. He was discharged on 11/10/17 to [facility] but returned to ED and readmitted on 11/12/17 for Aspiration post-obstructive pneumonia with suspected mucus plug and subsequently intubated on admission. ON 11/20/17, patient went for Tracheostomy by Dr. Hughes, ENT. Then on 11/21/17 patient went into shock, most likely sepsis as WBC went up to 38k; initially thought to be due to aspiration pneumonia but it was discovered he had a dislodged PEG tube which lead to severe intra-abdominal infection causing peritionitis s/p IR drainage with 3 pigtail catheter which was removed on Thursday. The PEG was replaced. Dr. Palmer placed a left femoral tunnel cath for Hemodialysis. Peritonitis - likely from dislodged peg tube - peritoneal Fluid positive for Enterobacter, Heather (non albicans) - Antibiotics managed by ID - s/p multiple intraabdominal drainages placed by IR and GS. - last drainage was placed on 12/06 by IR -Acute hypoxic respiratory failure due to Pneumonia on MV>96 hours s/p Tracheostomy 11/20/17: continue MV, daily weaning attempt -Leukocyotosis with Sepsis with transient septic shock, poa: shock resolved, continue abx, ID is following -Aspiration pneumonia, with mucus plugging/post obstructive pna poa: Supervisor Respiratory is following, following sunction protocols -Acute encephalopathy: treat supportively -Hypernatremia: treat with free water, monitor bmp closely -Hypokalemia: replace and monitor closely -ARF vasomotor nephropathy, poa: IV fluids, monitor bmp closely -Dysphagia with aspiration: s/p peg tube -Acute on chronic blood loss anemia w/Coffee-ground material from peg tube: GI is following, treat with ppi iv bid, EGD done 11/18/17 showed 8 mm cratered, 10 mm linear ulcer proximal lesser curvature with erythema but no other bleeding stigmata, gastritis and 4-5 cm hiatal hernia -Advance care planning: full code CCT 32 minutes History Interval history: Patient was seen and examined. Follow-up on current diagnosis of respiratory failure. No temperature spikes overnight, tmax 99.9 F. He was Intubated via Trach now. Already had peg upon admission. Imaging, nursing note, chart, labs and old chart reviewed. Hospitalist Physical - Physical exam Narrative exam: GEN: ill appearing, ngt in place HEENT: NCAT, pupils reactive, anicteric, NECK: supple, no adenopathy, no thyromegaly, no JVD, trach in place, I do not see any pus or bleeding around trach CVS/HEART: RRR, normal S1S2, pulses present bilaterally CHEST/LUNGS: Symmetrical chest expansion, good air entry bilaterally GI/Abdomen: soft, distended, pbs, +peg tube in place EXT/Skin: generalized edema x 4 MSK: left hemiparesis Neuro: doesn't follow commands, aphasic Psych: confused and semi-comatose state - Constitutional Vitals: Temp Pulse Resp BP Pulse Ox 99.3 F 128 H 29 H 142/84 96 12/20/17 08:00 12/20/17 10:00 12/20/17 10:00 12/20/17 10:12/20/17 10:00 General appearance: Present: no acute distress Results - Labs CBC & Chem 7: 12/19/17 09:00 12/19/17 09:00 Labs: Laboratory Last Values WBC 12.4 K/mm3 (4.5-11.0) H 12/19/17 09:00 RBC 2.86 M/mm3 (3.65-5.03) L 12/19/17 09:00 Hgb 7.2 gm/dl (11.8-15.2) L 12/19/17 09:00 Hct 22.6 % (35.5-45.6) L 12/19/17 09:00 MCV 79 fl (84-94) L 12/19/17 09:00 MCH 25 pg (28-32) L 12/19/17 09:00 MCHC 32 % (32-34) 12/19/17 09:00 RDW 17.2 % (13.2-15.2) H 12/19/17 09:00 Plt Count 161 K/mm3 (140-440) 12/19/17 09:00 Lymph % (Auto) 6.8 % (13.4-35.0) L 12/19/17 09:00 Mathews % (Auto) 12.6 % (0.0-7.3) H 12/19/17 09:00 Eos % (Auto) 0.2 % (0.0-4.3) 12/19/17 09:00 Baso % (Auto) 0.3 % (0.0-1.8) 12/19/17 09:00 Lymph # 0.8 K/mm3 (1.2-5.4) L 12/19/17 09:00 Mathews # 1.6 K/mm3 (0.0-0.8) H 12/19/17 09:00 Eos # 0.0 K/mm3 (0.0-0.4) 12/19/17 09:00 Baso # 0.0 K/mm3 (0.0-0.1) 12/19/17 09:00 Add Manual Diff Complete 12/12/17 05:41 Total Counted 100 12/12/17 05:41 Seg Neutrophils % 80.1 % (40.0-70.0) H 12/19/17 09:00 Seg Neuts % (Manual) 74.0 % (40.0-70.0) H 12/12/17 05:41 Band Neutrophils % 6.0 % 12/12/17 05:41 Lymphocytes % (Manual) 6.0 % (13.4-35.0) L 12/12/17 05:41 Reactive Lymphs % (Man) 0 % 12/12/17 05:41 Monocytes % (Manual) 2.0 % (0.0-7.3) 12/12/17 05:41 Eosinophils % (Manual) 9.0 % (0.0-4.3) H 12/12/17 05:41 Basophils % (Manual) 0 % (0.0-1.8) 12/12/17 05:41 Metamyelocytes % 3.0 % 12/12/17 05:41 Myelocytes % 0 % 12/12/17 05:41 Promyelocytes % 0 % 12/12/17 05:41 Blast Cells % 0 % 12/12/17 05:41 Nucleated RBC % Not Reportable 12/12/17 05:41 Seg Neutrophils # 10.0 K/mm3 (1.8-7.7) H 12/19/17 09:00 Seg Neutrophils # Man 7.7 K/mm3 (1.8-7.7) 12/12/17 05:41 Band Neutrophils # 0.6 K/mm3 12/12/17 05:41 Lymphocytes # (Manual) 0.6 K/mm3 (1.2-5.4) L 12/12/17 05:41 Abs React Lymphs (Man) 0.0 K/mm3 12/12/17 05:41 Monocytes # (Manual) 0.2 K/mm3 (0.0-0.8) 12/12/17 05:41 Eosinophils # (Manual) 0.9 K/mm3 (0.0-0.4) H 12/12/17 05:41 Basophils # (Manual) 0.0 K/mm3 (0.0-0.1) 12/12/17 05:41 Metamyelocytes # 0.3 K/mm3 12/12/17 05:41 Myelocytes # 0.0 K/mm3 12/12/17 05:41 Promyelocytes # 0.0 K/mm3 12/12/17 05:41 Blast Cells # 0.0 K/mm3 12/12/17 05:41 WBC Morphology Not Reportable 12/12/17 05:41 Hypersegmented Neuts Not Reportable 12/12/17 05:41 Hyposegmented Neuts Not Reportable 12/12/17 05:41 Hypogranular Neuts Not Reportable 12/12/17 05:41 Smudge Cells Not Reportable 12/12/17 05:41 Toxic Granulation Not Reportable 12/12/17 05:41 Toxic Vacuolation Not Reportable 12/12/17 05:41 Dohle Bodies Not Reportable 12/12/17 05:41 Pelger-Huet Anomaly Not Reportable 12/12/17 05:41 Evangelina Rods Not Reportable 12/12/17 05:41 Platelet Estimate Consistent w auto 12/12/17 05:41 Clumped Platelets Not Reportable 12/12/17 05:41 Plt Clumps, EDTA Not Reportable 12/12/17 05:41 Large Platelets Not Reportable 12/12/17 05:41 Giant Platelets Not Reportable 12/12/17 05:41 Platelet Satelliting Not Reportable 12/12/17 05:41 Plt Morphology Comment Not Reportable 12/12/17 05:41 RBC Morphology Not Reportable 12/12/17 05:41 Dimorphic RBCs Not Reportable 12/12/17 05:41 Polychromasia 1+ 12/12/17 05:41 Hypochromasia Few 12/12/17 05:41 Poikilocytosis Not Reportable 12/12/17 05:41 Anisocytosis 1+ 12/12/17 05:41 Microcytosis Few 12/12/17 05:41 Macrocytosis Not Reportable 12/12/17 05:41 Spherocytes Not Reportable 12/12/17 05:41 Pappenheimer Bodies Not Reportable 12/12/17 05:41 Sickle Cells Not Reportable 12/12/17 05:41 Target Cells Not Reportable 12/12/17 05:41 Tear Drop Cells Not Reportable 12/12/17 05:41 Ovalocytes Not Reportable 12/12/17 05:41 Stomatocytes 1+ 12/12/17 05:41 Helmet Cells Not Reportable 12/12/17 05:41 Dukes-Bird-In-Hand Bodies Not Reportable 12/12/17 05:41 [place] Rings Not Reportable 12/12/17 05:41 [place] Cells Not Reportable 12/12/17 05:41 Bite Cells Not Reportable 12/12/17 05:41 Crenated Cell Not Reportable 12/12/17 05:41 Elliptocytes Not Reportable 12/12/17 05:41 Acanthocytes (Spur) Not Reportable 12/12/17 05:41 Rouleaux Not Reportable 12/12/17 05:41 Hemoglobin C Crystals Not Reportable 12/12/17 05:41 Schistocytes Not Reportable 12/12/17 05:41 Malaria parasites Not Reportable 12/12/17 05:41 [place] Bodies Not Reportable 12/12/17 05:41 Hem Pathologist Commnt No 12/12/17 05:41 PT 15.4 Sec. (12.2-14.9) H 12/14/17 05:11 INR 1.17 (0.87-1.13) H 12/14/17 05:11 APTT 33.8 Sec. (24.2-36.6) 11/26/17 06:29 POC ABG pH 7.505 (7.35-7.45) H 11/23/17 04:56 POC ABG pCO2 26.3 (35-45) L 11/23/17 04:56 POC ABG pO2 100 (80-105) 11/23/17 04:56 POC ABG HCO3 20.8 11/23/17 04:56 POC ABG Total CO2 22 11/23/17 04:56 POC ABG O2 Sat 98 11/23/17 04:56 POC ABG Base Excess -2 11/23/17 04:56 FiO2 30 % 11/23/17 04:56 Sodium 139 mmol/L (137-145) 12/19/17 09:00 Potassium 3.1 mmol/L (3.6-5.0) L 12/19/17 09:00 Chloride 100.0 mmol/L (98-107) 12/19/17 09:00 Carbon Dioxide 27 mmol/L (22-30) 12/19/17 09:00 Anion Gap 15 mmol/L 12/19/17 09:00 BUN 22 mg/dL (9-20) H 12/19/17 09:00 Creatinine 1.4 mg/dL (0.8-1.5) 12/19/17 09:00 Estimated GFR > 60 ml/min 12/19/17 09:00 BUN/Creatinine Ratio 16 % 12/19/17 09:00 Glucose 113 mg/dL (75-100) H 12/19/17 09:00 POC Glucose 124 (70-105) H 12/20/17 05:53 Lactic Acid 1.80 mmol/L (0.7-2.0) 11/27/17 04:06 Calcium 8.3 mg/dL (8.4-10.2) L 12/19/17 09:00 Phosphorus 2.60 mg/dL (2.5-4.5) 12/11/17 15:26 Magnesium 1.50 mg/dL (1.7-2.3) L 12/19/17 00:24 Total Bilirubin 0.70 mg/dL (0.1-1.2) 12/19/17 09:00 AST 54 units/L (5-40) H 12/19/17 09:00 ALT 25 units/L (7-56) 12/19/17 09:00 Alkaline Phosphatase 204 units/L (35-129) H 12/19/17 09:00 Total Creatine Kinase 84 units/L (55-170) 11/12/17 20:03 CK-MB (CK-2) < 1.0 ng/mL (0.0-4.0) 11/12/17 20:03 CK-MB (CK-2) Rel Index 1.1 (0-4) 11/12/17 20:03 Troponin T 0.098 ng/mL (0.00-0.029) H 11/12/17 Unknown C-Reactive Protein 25.70 mg/dL (0.00-1.30) H 11/11/17 23:20 NT-Pro-B Natriuret Pep 792.4 pg/mL (0-900) 11/11/17 23:20 Total Protein 5.8 g/dL (6.3-8.2) L 12/19/17 09:00 Albumin 2.0 g/dL (3.9-5) L 12/19/17 09:00 Albumin/Globulin Ratio 0.5 % 12/19/17 09:00 Triglycerides 86 mg/dL (2-149) 11/11/17 23:20 Cholesterol 82 mg/dL (50-199) 11/11/17 23:20 LDL Cholesterol Direct 42 mg/dL (50-130) L 11/11/17 23:20 HDL Cholesterol 24 mg/dL (40-59) L 11/11/17 23:20 Cholesterol/HDL Ratio 3.41 % 11/11/17 23:20 Lipase 30 units/L (13-60) 11/11/17 23:20 Urine Color Nicole (Yellow) 11/11/17 23:09 Urine Turbidity Cloudy (Clear) 11/11/17 23:09 Urine pH 5.0 (5.0-7.0) 11/11/17 23:09 Ur Specific [place] 1.025 (1.003-1.030) 11/11/17 23:09 Urine Protein 100 mg/dl mg/dL (Negative) 11/11/17 23:09 Urine Glucose (UA) 50 mg/dL (Negative) 11/11/17 23:09 Urine Ketones Neg mg/dL (Negative) 11/11/17 23:09 Urine Blood Neg (Negative) 11/11/17 23:09 Urine Nitrite Neg (Negative) 11/11/17 23:09 Urine Bilirubin Neg (Negative) 11/11/17 23:09 Urine Urobilinogen 4.0 mg/dL (<2.0) 11/11/17 23:09 Ur Leukocyte Esterase Neg (Negative) 11/11/17 23:09 Urine WBC (Auto) 5.0 /HPF (0.0-6.0) 11/11/17 23:09 Urine RBC (Auto) 4.0 /HPF (0.0-6.0) 11/11/17 23:09 Urine Bacteria (Auto) 3+ /HPF (Negative) 11/11/17 23:09 Amorphous Crystals 3+ 11/11/17 23:09 Hyaline Casts 76 /LPF 11/11/17 23:09 Urine Mucus 2+ /HPF 11/11/17 23:09 Hepatitis A IgM Ab Non-reactive (NonReactive) 11/22/17 19:45 Hep Bs Antigen Non-reactive (Negative) 11/22/17 19:45 Hep B Core IgM Ab Non-reactive (NonReactive) 11/22/17 19:45 Hepatitis C Antibody Reactive (NonReactive) A 11/22/17 19:45 Blood Type A POSITIVE 12/16/17 13:01 Antibody Screen Positive 12/16/17 13:01 SANTANA Antibody Screen Cancelled 12/16/17 13:01 Antibody Identification Cold Antibody 12/16/17 13:01 Crossmatch See Detail 12/16/17 13:01 Crossmatch Prewarmed See Detail 12/16/17 13:01
--- NOTE | 2017-12-20 14:37 | XRay Report ---
FINAL REPORT EXAM: XR CHEST 1V AP HISTORY: routine follow up resp. failure TECHNIQUE: Single, portable chest x-ray. PRIORS: 24 November 2017. FINDINGS: Tracheostomy tube again noted. Enteric tube tip projects at EG junction level and should be advanced somewhat. Right IJ central venous catheter tip projects over SVC-RA junction. Cardiac silhouette stable. Lungs show mild elevation or eventration of right hemidiaphragm. Patchy and partially confluent opacities project over left lower lung, new from comparison. Hazy opacification and obscuration of bilateral costophrenic angles, also new. No apparent pneumothorax. Bony thorax grossly unremarkable. IMPRESSION: 1. Tube and line positions as reported. 2. Left lower lung atelectasis versus consolidation and possible very small bilateral pleural effusions. Correlate clinically.
--- NOTE | 2017-12-20 14:44 | XRay Report ---
FINAL REPORT EXAM: XR ABDOMEN 1V AP HISTORY: verify DHT placement TECHNIQUE: KUB(s) view of abdomen. PRIORS: 17 December 2017. FINDINGS: Enteric tube extends tip projected over EG junction level and should be advanced somewhat. Multiple percutaneous catheters project over left upper and lower quadrants. Nonspecific bowel gas pattern. No apparent pneumoperitoneum. Degenerative change in lumbosacral spine. IMPRESSION: 1. Enteric tube position as reported. 2. Nonspecific bowel gas pattern, which may represent adynamic ileus. Followup may be warranted.
[2017-12-20 19:09] LABS: Hematocrit 23.7 % (35.5-45.6); Hemoglobin 7.7 gm/dl (11.8-15.2); Mean Corpuscular HGB Conc 33 % (32-34); Mean Corpuscular Volume 78 fl (84-94); Platelet Count 212 K/mm3 (140-440); Red Blood Count 3.03 M/mm3 (3.65-5.03); Red Cell Distribution Width 17.2 % (13.2-15.2)
[2017-12-20 19:15] LABS: Mean Corpuscular Hemoglobin 25 pg (28-32)
[2017-12-20 19:22] LABS: BUN/Creatinine Ratio 26; Blood Urea Nitrogen 37 mg/dL (9-20); Calcium 8.3 mg/dL (8.4-10.2); Hemolysis Index 3
[2017-12-20 19:53] LABS: Band Neutrophils # (Manual) 0.2 K/mm3; Basophils % (Manual) 0 % (0.0-1.8); Total Cells Counted 100
[2017-12-20 19:54] LABS: Anisocytosis 1+
[2017-12-20 19:55] LABS: Hypochromasia 2+; Ovalocytes Few; Poikilocytosis Few
--- NOTE | 2017-12-20 20:21 | XRay Report ---
FINAL REPORT EXAM: XR ABDOMEN 1V AP HISTORY: DHT advanced, check placement TECHNIQUE: KUB(s) view of abdomen. PRIORS: Earlier on same date. FINDINGS: Enteric tube tip now projects just caudal to EG junction level and may still be advanced somewhat. Percutaneous catheters again projected over left upper quadrant, mid and lower abdomen. Nonspecific bowel gas pattern. No apparent pneumoperitoneum. Osseous structures grossly unremarkable. IMPRESSION: 1. Enteric tube position as reported. 2. Otherwise, stable.
--- NOTE | 2017-12-20 23:59 | XRay Report ---
FINAL REPORT PROCEDURE: XR ABDOMEN 1V AP TECHNIQUE: Abdominal radiograph, single supine AP view. HISTORY: Tube Feeding Placement COMPARISON: 12/20/2017 1953 hours FINDINGS: Bowel gas pattern:Nonobstructive. Masses or calcifications:None. Bony structures:No significant abnormality. Other:Orogastric feeding tube is terminating in the body is of stomach. A percutaneous gastrostomy tube is noted.. IMPRESSION: Orogastric tube is terminating in the body of the stomach
[2017-12-21] MEDS: DILAUDID IV PRN (00:04)
--- NOTE | 2017-12-21 09:17 | Progress Note ---
Assessment and Plan Assessment * Acute kidney injury secondary to ATN --Intermittent HD started on 11/23/17 * Sepsis secondary to peritonitis/PEG malpositioning --RUQ/LUQ drains: Enterobacter, Heather (non albicans) * Aspiration pneumonitis related to above * Anemia * Acute CVA * Carotid artery disease s/p CEA * Encephalopathy Plan: * some evidence of renal recovery * hold HD MWF. and follow up 24hr crcl * replete k and mag today * Abx per ID * prbcs prn * Strict I/O * Avoid potential nephrptoxins * Dose medications for renal function * Replete lytes prn * Avoid nephrotoxins Subjective Date of service: 12/21/17 Principal diagnosis: Acute hypoxic respiratory failure, s/p Trach Interval history: new consult noted, last seen 11/09 with normal renal function Objective - Exam Narrative Exam: Constitutional: lethargic, other (intubated) Eyes: non-icteric ENT: oropharynx moist, other (ETT at 24 cm) Neck: supple, no JVD Ascultation: Bilateral: rhonchi (bilateral LT >>RT) Cardiovascular: regular rate and rhythm, other (tachycardic) Gastrointestinal: normoactive bowel sounds, non-distended Integumentary: normal Extremities: no cyanosis, no edema, other (RT femoral line in place) Neurologic: unable to assess (opens eyes spontaneously but does not follow commands . ) - Vital Signs Vital signs: Vital Signs - 12hr 12/20/17 12/20/17 12/20/17 22:00 22:37 23:00 Temperature Pulse Rate 111 H 107 H 101 H Respiratory 27 H 26 H Rate Blood Pressure 155/104 143/90 153/95 O2 Sat by Pulse 95 96 Oximetry O2 Sat by Pulse Oximetry [ Assessment] 12/21/17 12/21/17 12/21/17 00:00 00:46 01:00 Temperature 97.1 F L Pulse Rate 137 H 89 Respiratory 25 H 16 Rate Blood Pressure 147/98 146/93 O2 Sat by Pulse 100 97 Oximetry O2 Sat by Pulse 97 Oximetry [ Assessment] 12/21/17 12/21/17 12/21/17 02:00 03:00 04:00 Temperature 98.3 F Pulse Rate 94 H 93 H 101 H Respiratory 22 18 15 Rate Blood Pressure 130/79 142/84 149/94 O2 Sat by Pulse 100 Oximetry O2 Sat by Pulse Oximetry [ Assessment] 12/21/17 12/21/17 12/21/17 05:01 05:44 06:00 Temperature Pulse Rate 115 H 128 H Respiratory 25 H 28 H Rate Blood Pressure 172/103 151/93 O2 Sat by Pulse 95 95 Oximetry O2 Sat by Pulse 97 Oximetry [ Assessment] 12/21/17 12/21/17 07:00 08:00 Temperature 99.0 F Pulse Rate 114 H 121 H Respiratory 25 H 25 H Rate Blood Pressure 138/92 160/100 O2 Sat by Pulse 97 100 Oximetry O2 Sat by Pulse Oximetry [ Assessment] - Lab 12/20/17 19:00 12/20/17 19:00 Most recent lab results Calcium 8.3 mg/dL (8.4-10.2) L 12/20/17 19:00 Phosphorus 1.60 mg/dL (2.5-4.5) L 12/20/17 19:00 Magnesium 1.50 mg/dL (1.7-2.3) L 12/20/17 19:00
[2017-12-21] MEDS: DIFLUCAN FEEDTUBE SCH (09:44)
[2017-12-21] MEDS: PREVACID SOLUTAB FEEDTUBE SCH ×2 (09:44→21:20)
[2017-12-21] MEDS: LOPRESSOR PO SCH ×2 (09:44→21:19)
[2017-12-21] MEDS: MERREM 1,000 MG in NACL 0.9% 100 ML IV SCH (09:45)
[2017-12-21] MEDS ORDERED: MAGNESIUM SULFATE 2GM/50ML 2 GM/50 ML BAG IV ONE (10:00)
--- NOTE | 2017-12-21 10:47 | Progress Note ---
Assessment and Plan Assessment and plan: Admitted 11/12/17 Mr. 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 He had a Carotid doppler done that revealed a right ICA 50-79% stenosis. CTA of the neck revealed 80% stenosis of the right ICA with probable 50% stenosis of the origin of the right common carotid artery. His symptoms were thought to be due to the Carotid artery stenosis which was disheartening since he was on Aspirin and plavix. He was scheduled for right CEA but needed Cardiac clearance. He underwent stress test on 10/05/17 and Oil Well Shooter stated he was stable for non-cardiac history, low to moderate perioperative risk. So, he underwent right carotid enarterectomy on 10/09/17. Following the surgery, he developed recurrent left sided weakness/hemiparesis and was taken back to the OR on 10/10/17 for Open Thrombectomy of Right Internal Carotid Artery and Injection of tPA into the Artery. CT head obtained 2 days after surgery on 10/12 showed massive right cerebral hemisphere acute CVA with midline shift. He was subsequently discharged on 11/10/17 to [facility] but returned to [facility] and was re-admitted on 11/12/17 for suspected sepsis due to Aspiration post-obstructive pneumonia with suspected mucus plug and subsequently intubated on admission. On 11/20/17, patient went for Tracheostomy by Dr. Hughes, ENT. Then on 11/21/17 patient went into shock, most likely sepsis as WBC went up to 38.2k; initially thought to be due worsening aspiration pneumonia but it was discovered that he had a dislodged PEG tube from the Nursing, most likely present on admission, which lead to the shock from severe intra-abdominal infection/ peritonitis requiring IR drainage and General surgery drainage. [address] One drain is being removed by Dr. Noble today and the 2 other catheters will remain. The PEG needs to be replaced before LTAC will accept. Dr. Palmer placed a left femoral tunnel cath for Hemodialysis. Peritonitis - likely from dislodged peg tube, hence not present - peritoneal Fluid positive for Enterobacter, Heather (non albicans) - Antibiotics managed by ID - s/p multiple intraabdominal drainages placed by IR and GS. -Acute hypoxic respiratory failure due to Pneumonia on MV>96 hours s/p Tracheostomy 11/20/17: continue MV, daily weaning attempt -Leukocyotosis with Sepsis with transient septic shock, poa: shock resolved, continue abx, ID is following -Aspiration pneumonia, with mucus plugging/post obstructive pna poa: Transport Conductor is following, following sunction protocols -Acute encephalopathy: treat supportively -Hypernatremia: treat with free water, monitor bmp closely -Hypokalemia: replace and monitor closely -ARF vasomotor nephropathy, poa: IV fluids, monitor bmp closely -Dysphagia with aspiration: s/p peg tube -Acute on chronic blood loss anemia w/Coffee-ground material from peg tube: GI is following, treat with ppi iv bid, EGD done 11/18/17 showed 8 mm cratered, 10 mm linear ulcer proximal lesser curvature with erythema but no other bleeding stigmata, gastritis and 4-5 cm hiatal hernia -Advance care planning: full code -Disposition: continue inpatient care, LTAC declined to accept patient without PEG tube. D/W Dr. Noble. I called daughter, Eugenie [phone], she did not answer but Eduardo, her stated fiance, answered and told me that Eugenie is unavailable (at work) at this time. History Interval history: Patient was seen and examined. Follow-up on current diagnosis of respiratory failure. No temperature spikes overnight, tmax 99.4 F. He has Trach now. Already had peg upon admission. Imaging, nursing note, chart, labs and old chart reviewed. Hospitalist Physical - Physical exam Narrative exam: GEN: ill appearing, ngt in place HEENT: NCAT, pupils reactive, anicteric, NECK: supple, no adenopathy, no thyromegaly, no JVD, trach in place, I do not see any pus or bleeding around trach CVS/HEART: Regular tachycardia,, normal S1S2, pulses present bilaterally CHEST/LUNGS: Symmetrical chest expansion, good air entry bilaterally GI/Abdomen: soft, distended, pbs, +peg tube in place EXT/Skin: generalized edema x 4 MSK: left hemiparesis Neuro: doesn't follow commands, aphasic Psych: confused, semi-comatose state - Constitutional Vitals: Temp Pulse Resp BP Pulse Ox 99.0 F 117 H 25 H 139/90 100 12/21/17 08:00 12/21/17 09:44 12/21/17 08:00 12/21/17 09:44 12/21/17 08:00 General appearance: Present: no acute distress Results - Labs CBC & Chem 7: 12/20/17 19:00 12/20/17 19:00 Labs: Laboratory Last Values WBC 8.6 K/mm3 (4.5-11.0) 12/20/17 19:00 RBC 3.03 M/mm3 (3.65-5.03) L 12/20/17 19:00 Hgb 7.7 gm/dl (11.8-15.2) L 12/20/17 19:00 Hct 23.7 % (35.5-45.6) L 12/20/17 19:00 MCV 78 fl (84-94) L 12/20/17 19:00 MCH 25 pg (28-32) L 12/20/17 19:00 MCHC 33 % (32-34) 12/20/17 19:00 RDW 17.2 % (13.2-15.2) H 12/20/17 19:00 Plt Count 212 K/mm3 (140-440) 12/20/17 19:00 Lymph % (Auto) 6.8 % (13.4-35.0) L 12/19/17 09:00 [place] % (Auto) Rag Cutting Machine Operator 12/20/17 19:00 Eos % (Auto) 0.2 % (0.0-4.3) 12/19/17 09:00 Baso % (Auto) 0.3 % (0.0-1.8) 12/19/17 09:00 Lymph # 0.8 K/mm3 (1.2-5.4) L 12/19/17 09:00 [place] # 1.6 K/mm3 (0.0-0.8) H 12/19/17 09:00 Eos # 0.0 K/mm3 (0.0-0.4) 12/19/17 09:00 Baso # 0.0 K/mm3 (0.0-0.1) 12/19/17 09:00 Add Manual Diff Complete 12/20/17 19:00 Total Counted 100 12/20/17 19:00 Seg Neutrophils % 80.1 % (40.0-70.0) H 12/19/17 09:00 Seg Neuts % (Manual) 74.0 % (40.0-70.0) H 12/20/17 19:00 Band Neutrophils % 2.0 % 12/20/17 19:00 Lymphocytes % (Manual) 6.0 % (13.4-35.0) L 12/20/17 19:00 Reactive Lymphs % (Man) 0 % 12/20/17 19:00 Monocytes % (Manual) 17.0 % (0.0-7.3) H 12/20/17 19:00 Eosinophils % (Manual) 1.0 % (0.0-4.3) 12/20/17 19:00 Basophils % (Manual) 0 % (0.0-1.8) 12/20/17 19:00 Metamyelocytes % 0 % 12/20/17 19:00 Myelocytes % 0 % 12/20/17 19:00 Promyelocytes % 0 % 12/20/17 19:00 Blast Cells % 0 % 12/20/17 19:00 Nucleated RBC % Not Reportable 12/20/17 19:00 Seg Neutrophils # 10.0 K/mm3 (1.8-7.7) H 12/19/17 09:00 Seg Neutrophils # Man 6.4 K/mm3 (1.8-7.7) 12/20/17 19:00 Band Neutrophils # 0.2 K/mm3 12/20/17 19:00 Lymphocytes # (Manual) 0.5 K/mm3 (1.2-5.4) L 12/20/17 19:00 Abs React Lymphs (Man) 0.0 K/mm3 12/20/17 19:00 Monocytes # (Manual) 1.5 K/mm3 (0.0-0.8) H 12/20/17 19:00 Eosinophils # (Manual) 0.1 K/mm3 (0.0-0.4) 12/20/17 19:00 Basophils # (Manual) 0.0 K/mm3 (0.0-0.1) 12/20/17 19:00 Metamyelocytes # 0.0 K/mm3 12/20/17 19:00 Myelocytes # 0.0 K/mm3 12/20/17 19:00 Promyelocytes # 0.0 K/mm3 12/20/17 19:00 Blast Cells # 0.0 K/mm3 12/20/17 19:00 WBC Morphology Not Reportable 12/20/17 19:00 Hypersegmented Neuts Not Reportable 12/20/17 19:00 Hyposegmented Neuts Not Reportable 12/20/17 19:00 Hypogranular Neuts Not Reportable 12/20/17 19:00 Smudge Cells Not Reportable 12/20/17 19:00 Toxic Granulation Not Reportable 12/20/17 19:00 Toxic Vacuolation Not Reportable 12/20/17 19:00 Dohle Bodies Not Reportable 12/20/17 19:00 Pelger-Huet Anomaly Not Reportable 12/20/17 19:00 Evangelina Rods Not Reportable 12/20/17 19:00 Platelet Estimate Appears normal 12/20/17 19:00 Clumped Platelets Not Reportable 12/20/17 19:00 Plt Clumps, EDTA Not Reportable 12/20/17 19:00 Large Platelets Not Reportable 12/20/17 19:00 Giant Platelets Not Reportable 12/20/17 19:00 Platelet Satelliting Not Reportable 12/20/17 19:00 Plt Morphology Comment Not Reportable 12/20/17 19:00 RBC Morphology Not Reportable 12/20/17 19:00 Dimorphic RBCs Not Reportable 12/20/17 19:00 Polychromasia Not Reportable 12/20/17 19:00 Hypochromasia 2+ 12/20/17 19:00 Poikilocytosis Few 12/20/17 19:00 Anisocytosis 1+ 12/20/17 19:00 Microcytosis 1+ 12/20/17 19:00 Macrocytosis Not Reportable 12/20/17 19:00 Spherocytes Not Reportable 12/20/17 19:00 Pappenheimer Bodies Not Reportable 12/20/17 19:00 Sickle Cells Not Reportable 12/20/17 19:00 Target Cells Not Reportable 12/20/17 19:00 Tear Drop Cells Not Reportable 12/20/17 19:00 Ovalocytes Few 12/20/17 19:00 Stomatocytes 1+ 12/12/17 05:41 Helmet Cells Not Reportable 12/20/17 19:00 [place] Bodies Not Reportable 12/20/17 19:00 [place] Rings Not Reportable 12/20/17 19:00 Lucretia Cells Not Reportable 12/20/17 19:00 Bite Cells Not Reportable 12/20/17 19:00 Crenated Cell Not Reportable 12/20/17 19:00 Elliptocytes Not Reportable 12/20/17 19:00 Acanthocytes (Spur) Not Reportable 12/20/17 19:00 Rouleaux Not Reportable 12/20/17 19:00 Hemoglobin C Crystals Not Reportable 12/20/17 19:00 Schistocytes Not Reportable 12/20/17 19:00 Malaria parasites Not Reportable 12/20/17 19:00 [place] Bodies Not Reportable 12/20/17 19:00 Hem Pathologist Commnt No 12/20/17 19:00 PT 15.4 Sec. (12.2-14.9) H 12/14/17 05:11 INR 1.17 (0.87-1.13) H 12/14/17 05:11 APTT 33.8 Sec. (24.2-36.6) 11/26/17 06:29 POC ABG pH 7.505 (7.35-7.45) H 11/23/17 04:56 POC ABG pCO2 26.3 (35-45) L 11/23/17 04:56 POC ABG pO2 100 (80-105) 11/23/17 04:56 POC ABG HCO3 20.8 11/23/17 04:56 POC ABG Total CO2 22 11/23/17 04:56 POC ABG O2 Sat 98 11/23/17 04:56 POC ABG Base Excess -2 11/23/17 04:56 FiO2 30 % 11/23/17 04:56 Sodium 142 mmol/L (137-145) 12/20/17 19:00 Potassium 3.3 mmol/L (3.6-5.0) L 12/20/17 19:00 Chloride 103.5 mmol/L (98-107) 12/20/17 19:00 Carbon Dioxide 28 mmol/L (22-30) 12/20/17 19:00 Anion Gap 14 mmol/L 12/20/17 19:00 BUN 37 mg/dL (9-20) H 12/20/17 19:00 Creatinine 1.4 mg/dL (0.8-1.5) 12/20/17 19:00 Estimated GFR > 60 ml/min 12/20/17 19:00 BUN/Creatinine Ratio 26 % 12/20/17 19:00 Glucose 87 mg/dL (75-100) 12/20/17 19:00 POC Glucose 98 (70-105) 12/21/17 06:04 Lactic Acid 1.80 mmol/L (0.7-2.0) 11/27/17 04:06 Calcium 8.3 mg/dL (8.4-10.2) L 12/20/17 19:00 Phosphorus 1.60 mg/dL (2.5-4.5) L 12/20/17 19:00 Magnesium 1.50 mg/dL (1.7-2.3) L 12/20/17 19:00 Total Bilirubin 0.70 mg/dL (0.1-1.2) 12/19/17 09:00 AST 54 units/L (5-40) H 12/19/17 09:00 ALT 25 units/L (7-56) 12/19/17 09:00 Alkaline Phosphatase 204 units/L (35-129) H 12/19/17 09:00 Total Creatine Kinase 84 units/L (55-170) 11/12/17 20:03 CK-MB (CK-2) < 1.0 ng/mL (0.0-4.0) 11/12/17 20:03 CK-MB (CK-2) Rel Index 1.1 (0-4) 11/12/17 20:03 Troponin T 0.098 ng/mL (0.00-0.029) H 11/12/17 Unknown C-Reactive Protein 25.70 mg/dL (0.00-1.30) H 11/11/17 23:20 NT-Pro-B Natriuret Pep 792.4 pg/mL (0-900) 11/11/17 23:20 Total Protein 5.8 g/dL (6.3-8.2) L 12/19/17 09:00 Albumin 2.0 g/dL (3.9-5) L 12/19/17 09:00 Albumin/Globulin Ratio 0.5 % 12/19/17 09:00 Triglycerides 86 mg/dL (2-149) 11/11/17 23:20 Cholesterol 82 mg/dL (50-199) 11/11/17 23:20 LDL Cholesterol Direct 42 mg/dL (50-130) L 11/11/17 23:20 HDL Cholesterol 24 mg/dL (40-59) L 11/11/17 23:20 Cholesterol/HDL Ratio 3.41 % 11/11/17 23:20 Lipase 30 units/L (13-60) 11/11/17 23:20 Urine Color Nicole (Yellow) 11/11/17 23:09 Urine Turbidity Cloudy (Clear) 11/11/17 23:09 Urine pH 5.0 (5.0-7.0) 11/11/17 23:09 Ur Specific [place] 1.025 (1.003-1.030) 11/11/17 23:09 Urine Protein 100 mg/dl mg/dL (Negative) 11/11/17 23:09 Urine Glucose (UA) 50 mg/dL (Negative) 11/11/17 23:09 Urine Ketones Neg mg/dL (Negative) 11/11/17 23:09 Urine Blood Neg (Negative) 11/11/17 23:09 Urine Nitrite Neg (Negative) 11/11/17 23:09 Urine Bilirubin Neg (Negative) 11/11/17 23:09 Urine Urobilinogen 4.0 mg/dL (<2.0) 11/11/17 23:09 Ur Leukocyte Esterase Neg (Negative) 11/11/17 23:09 Urine WBC (Auto) 5.0 /HPF (0.0-6.0) 11/11/17 23:09 Urine RBC (Auto) 4.0 /HPF (0.0-6.0) 11/11/17 23:09 Urine Bacteria (Auto) 3+ /HPF (Negative) 11/11/17 23:09 Amorphous Crystals 3+ 11/11/17 23:09 Hyaline Casts 76 /LPF 11/11/17 23:09 Urine Mucus 2+ /HPF 11/11/17 23:09 Hepatitis A IgM Ab Non-reactive (NonReactive) 11/22/17 19:45 Hep Bs Antigen Non-reactive (Negative) 11/22/17:45 Hep B Core IgM Ab Non-reactive (NonReactive) 11/22/17 19:45 Hepatitis C Antibody Reactive (NonReactive) A 11/22/17 19:45 Blood Type A POSITIVE 12/16/17 13:01 Antibody Screen Positive 12/16/17 13:01 SANTANA Antibody Screen Cancelled 12/16/17 13:01 Antibody Identification Cold Antibody 12/16/17 13:01 Crossmatch See Detail 12/16/17 13:01 Crossmatch Prewarmed See Detail 12/16/17 13:01
--- NOTE | 2017-12-21 11:47 | Progress Note ---
Assessment and Plan - Patient Problems (1) Gastrostomy malfunction Current Visit: Yes Status: Acute Plan to address problem: Pt is stable. After reviewing the records, discussing the case with multiple attendings, and seeing the patient, it is clear that we do not have an acute perforation. Most likely, the PEG tube started to migrate out of position prior to 11/18 as evidenced by no PEG button seen on EGD and no obvious hole in the stomach. As the contrast is restricted to certain areas in the abdomen, the fluid is loculated. The "ascites" may be tube feeds and/or reactionary fluid. Regardless, patient is not showing signs of obvious peritonitis. In this case, it may be prudent to try placing a few drains in the abdomen to remove that largest collections. I have already discussed this case with Dr. Moreira who agreed to review the case and see if that was possible. The alternative would be to take the patient for an ex-lap and washout the abdomen. I'm concerned that there may be a lot of inflammatory changes in the abdomen which would put him at risk for bowel injuries from the procedure. Therefore, this will be our back-up plan if the drains do not resolve the problem. As for nutritional access , for now, I would recommend an NGT. I doubt he has an active leak, so there is no need to test the stomach prior to using it. I have explained this plan in detail to the daughter (Jannette) and the attendings from ICU, GI, and hospitalist service. All were in agreement. - 11/25/17 Initial Consult Pt appears stable. s/p dx lap and washout - 12/03 POD#18. Pt stable. Remaining drains with minimal output, but not ready to come out based on appearance. Left lower drain removed. Purulent fluid starting coming out. The drain was probably partially clogged. Will pack wound with Mesalt and change QOD. Discussed with nurse. Would leave surgical incisions open to air. Will plan to remove kamar next week. Please call with questions. Will follow along peripherally. Time=10min Subjective Date of service: 12/21/17 Patient Reports: Positive: other (staff reports that he is starting to follow commands now.) Objective Vital Signs - 12hr 12/21/17 12/21/17 12/21/17 00:00 00:46 01:00 Temperature 97.1 F L Pulse Rate 137 H 89 Respiratory 25 H 16 Rate Blood Pressure 147/98 146/93 O2 Sat by Pulse 100 97 Oximetry O2 Sat by Pulse 97 Oximetry [ Assessment] 12/21/17 12/21/17 12/21/17 02:00 03:00 04:00 Temperature 98.3 F Pulse Rate 94 H 93 H 101 H Respiratory 22 18 15 Rate Blood Pressure 130/79 142/84 149/94 O2 Sat by Pulse 100 Oximetry O2 Sat by Pulse Oximetry [ Assessment] 12/21/17 12/21/17 12/21/17 05:01 05:44 06:00 Temperature Pulse Rate 115 H 128 H Respiratory 25 H 28 H Rate Blood Pressure 172/103 151/93 O2 Sat by Pulse 95 95 Oximetry O2 Sat by Pulse 97 Oximetry [ Assessment] 12/21/17 12/21/17 12/21/17 07:00 08:00 09:44 Temperature 99.0 F Pulse Rate 114 H 121 H 117 H Respiratory 25 H 25 H Rate Blood Pressure 138/92 160/100 139/90 O2 Sat by Pulse 97 100 Oximetry O2 Sat by Pulse Oximetry [ Assessment] - General physical appearance no distress, no pain - Abdomen soft, not tender (does not appear to show any signs of discomfort.), not distended, surgical scars (C/D/I), other (left lateral drain and ODALYS drain still have some purulent appearing material. Left lower drain was minimal and thinning out. This drain was removed. ) - Integumentary no rash, no growths, no abnormal pigmentation - Labs 12/20/17 19:00 12/20/17 19:00 Diabetes panel 12/20/17 Range/Units 19:00 Sodium 142 (137-145) mmol/L Potassium 3.3 L (3.6-5.0) mmol/L Chloride 103.5 (98-107) mmol/L Carbon Dioxide 28 (22-30) mmol/L BUN 37 H (9-20) mg/dL Creatinine 1.4 (0.8-1.5) mg/dL Glucose 87 (75-100) mg/dL Calcium 8.3 L (8.4-10.2) mg/dL Calcium panel 12/20/17 Range/Units 19:00 Calcium 8.3 L (8.4-10.2) mg/dL Phosphorus 1.60 L (2.5-4.5) mg/dL Pituitary panel 12/20/17 Range/Units 19:00 Sodium 142 (137-145) mmol/L Potassium 3.3 L (3.6-5.0) mmol/L Chloride 103.5 (98-107) mmol/L Carbon Dioxide 28 (22-30) mmol/L BUN 37 H (9-20) mg/dL Creatinine 1.4 (0.8-1.5) mg/dL Glucose 87 (75-100) mg/dL Calcium 8.3 L (8.4-10.2) mg/dL Adrenal panel 12/20/17 Range/Units 19:00 Sodium 142 (137-145) mmol/L Potassium 3.3 L (3.6-5.0) mmol/L Chloride 103.5 (98-107) mmol/L Carbon Dioxide 28 (22-30) mmol/L BUN 37 H (9-20) mg/dL Creatinine 1.4 (0.8-1.5) mg/dL Glucose 87 (75-100) mg/dL Calcium 8.3 L (8.4-10.2) mg/dL
[2017-12-21] MEDS: KCL 10MEQ/100ML 10 MEQ/100 ML BAG IV SCH ×2 (12:21→13:48)
--- NOTE | 2017-12-21 12:45 | XRay Report ---
AP ABDOMEN: HISTORY: Confirm placement tube. A Dobbhoff tube terminates in the fundus of the stomach. A percutaneous drain is noted in the left upper quadrant. The abdominal gas pattern is unremarkable. No masses or organomegaly is identified and there is no gross evidence of free air or fluid. No significant soft tissue calcifications are noted. IMPRESSION: Unremarkable abdomen.
[2017-12-21] MEDS ORDERED: LOPRESSOR IV ONE (14:27)
--- NOTE | 2017-12-21 15:04 | Progress Note ---
Assessment and Plan Imp: 1. CVA 2. Hemiparesis 3. Aspiration pneumonitis related to above 4. Sepsis 2/2 peritonitis/PEG mal-position, better 5. DARYA 6. s/p Trach/PEG Rec: 1. Holding HD per renal 2. ABX per ID -> Merrem/Diflucan 3. Abdominal drains as per surgery/IR 4. SCDs; GI PPx 5. Cont. Tpiece as tolerated; trach will need to be permanent for secretion clearance 6. Pulm status stable 7. Insurance denies LTAC coverage Long-term prognosis poor; no family present Subjective Date of service: 12/21/17 Principal diagnosis: Acute hypoxic respiratory failure, s/p Trach Interval history: Awake, alert. On 30% Tpiece and tolerating well. Unable to give history. Active Medications Albumin Human (Alburx 25% (Albumin)) 25 gm IV TIM PRN PRN Reason: Hypotension Last Admin: 12/18/17 12:13 Dose: 25 gm Lipase/Protease/Amylase (Pancreaze Dr 10,500 Unit) 1 each FEEDTUBE PRN PRN PRN Reason: For Clogged Feeding Tube Dextrose (D50w (25gm) Syringe) 50 ml IV PRN PRN PRN Reason: Hypoglycemia Fluconazole (Diflucan) 200 mg FEEDTUBE QDAY [facility]IRIS Stop: 12/23/17 20:00 Last Admin: 12/21/17 09:44 Dose: 200 mg Hydralazine HCl (Apresoline) 5 mg IV Q6HR PRN PRN Reason: Hypertension Last Admin: 12/17/17 04:14 Dose: 5 mg Hydromorphone HCl (Dilaudid) 1 mg IV Q3H PRN PRN Reason: Pain , Severe (7-10) Last Admin: 12/21/17 00:04 Dose: 1 mg Meropenem 1,000 mg/ Sodium (Chloride) 100 mls @ 100 mls/hr IV Q24HR OSIRIS Stop: 12/23/17 23:59 Last Admin: 12/21/17 09:45 Dose: 100 mls/hr Sodium Chloride (Nacl 0.9%) 100 mls @ 999 mls/hr IV TIM PRN PRN Reason: Hypotension Sodium Chloride (Nacl 0.9%) 100 mls @ 999 mls/hr IV TIM PRN PRN Reason: Hypotension Lansoprazole (Prevacid Solutab) 30 mg FEEDTUBE BID [facility] Last Admin: 12/21/17 09:44 Dose: 30 mg Metoprolol Tartrate (Lopressor) 25 mg PO BID [facility] Last Admin: 12/21/17 09:44 Dose: 25 mg Ondansetron HCl (Zofran) 4 mg IV Q3H PRN PRN Reason: Nausea And Vomiting Last Admin: 12/17/17 20:46 Dose: 4 mg Simple Syrup (Simple Syrup) 15 ml FEEDTUBE PRN PRN PRN Reason: Hypoglycemia Simple Syrup (Simple Syrup) 30 ml FEEDTUBE PRN PRN PRN Reason: Hypoglycemia Sodium Bicarbonate (Sodium Bicarbonate) 325 mg FEEDTUBE PRN PRN PRN Reason: For Clogged Feeding Tube Objective Vital Signs - 12hr 12/21/17 12/21/17 12/21/17 04:00 05:01 05:44 Temperature 98.3 F Pulse Rate 101 H 115 H Respiratory 15 25 H Rate Blood Pressure 149/94 172/103 O2 Sat by Pulse 100 95 Oximetry O2 Sat by Pulse 97 Oximetry [ Assessment] 12/21/17 12/21/17 12/21/17 06:00 07:00 08:00 Temperature 99.0 F Pulse Rate 128 H 114 H 121 H Respiratory 28 H 25 H 25 H Rate Blood Pressure 151/93 138/92 160/100 O2 Sat by Pulse 95 97 100 Oximetry O2 Sat by Pulse Oximetry [ Assessment] 12/21/17 12/21/17 12/21/17 09:00 09:44 10:00 Temperature Pulse Rate 112 H 117 H 115 H Respiratory 24 25 H Rate Blood Pressure 139/90 139/90 155/97 O2 Sat by Pulse 97 96 Oximetry O2 Sat by Pulse Oximetry [ Assessment] 12/21/17 12/21/17 12/21/17 11:00 12:00 13:00 Temperature 99.4 F Pulse Rate 102 H 104 H 100 H Respiratory 25 H 29 H 28 H Rate Blood Pressure 139/89 131/90 143/89 O2 Sat by Pulse 92 93 92 Oximetry O2 Sat by Pulse Oximetry [ Assessment] 12/21/17 14:00 Temperature Pulse Rate 103 H Respiratory 26 H Rate Blood Pressure 136/84 O2 Sat by Pulse 91 Oximetry O2 Sat by Pulse Oximetry [ Assessment] Constitutional: no acute distress, alert Eyes: non-icteric ENT: oropharynx moist Neck: supple (trach in position) Effort: normal Ascultation: Bilateral: clear Cardiovascular: regular rate and rhythm Gastrointestinal: normoactive bowel sounds, soft, non-tender, other (drains in place) Integumentary: normal Extremities: no cyanosis, pink and warm, edema (2+ bilateral LE edema) Neurologic: other (L hemiparesis,awake, response to my voice) Psychiatric: other (unable to assess) CBC and BMP: 12/20/17 19:00 12/20/17 19:00 ABG, PT/INR, D-dimer: ABG POC ABG pH 7.505 (7.35-7.45) H 11/23/17 04:56 POC ABG pCO2 26.3 (35-45) L 11/23/17 04:56 POC ABG pO2 100 (80-105) 11/23/17 04:56 POC ABG HCO3 20.8 11/23/17 04:56 POC ABG Total CO2 22 11/23/17 04:56 POC ABG O2 Sat 98 11/23/17 04:56 PT/INR, D-dimer PT 15.4 Sec. (12.2-14.9) H 12/14/17 05:11 INR 1.17 (0.87-1.13) H 12/14/17 05:11 Abnormal lab findings: Abnormal Labs 11/11/17 11/11/17 11/11/17 23:18 23:20 23:20 WBC RBC Hgb 10.4 L Hct 32.6 L D MCV MCH 27 L MCHC RDW 17.4 H Plt Count 105 L Lymph % (Auto) [place] % (Auto) Eos % (Auto) Lymph # [place] # Eos # Seg Neutrophils % Seg Neuts % (Manual) Lymphocytes % (Manual) 8.0 L Monocytes % (Manual) Eosinophils % (Manual) Nucleated RBC % 1.0 H Seg Neutrophils # Seg Neutrophils # Man Lymphocytes # (Manual) 0.7 L Monocytes # (Manual) Eosinophils # (Manual) PT INR POC ABG pH 7.550 H POC ABG pCO2 31.6 L POC ABG pO2 Sodium 146 H Potassium Chloride Carbon Dioxide BUN 26 H Creatinine 1.7 H D Glucose 133 H POC Glucose Lactic Acid Calcium Phosphorus Magnesium AST ALT Alkaline Phosphatase Troponin T 0.117 H* C-Reactive Protein Total Protein Albumin 2.5 L LDL Cholesterol Direct 42 L HDL Cholesterol 24 L Hepatitis C Antibody Crossmatch Crossmatch P[place]armed 11/11/17 11/12/17 11/12/17 23:20 00:23 00:23 WBC RBC Hgb Hct MCV MCH MCHC RDW Plt Count Lymph % (Auto) [place] % (Auto) Eos % (Auto) Lymph # [place] # Eos # Seg Neutrophils % Seg Neuts % (Manual) Lymphocytes % (Manual) Monocytes % (Manual) Eosinophils % (Manual) Nucleated RBC % Seg Neutrophils # Seg Neutrophils # Man Lymphocytes # (Manual) Monocytes # (Manual) Eosinophils # (Manual) PT 16.7 H INR 1.28 H POC ABG pH POC ABG pCO2 POC ABG pO2 Sodium Potassium Chloride Carbon Dioxide BUN Creatinine Glucose POC Glucose Lactic Acid 3.20 H* Calcium Phosphorus Magnesium AST ALT Alkaline Phosphatase Troponin T C-Reactive Protein 25.70 H Total Protein Albumin LDL Cholesterol Direct HDL Cholesterol Hepatitis C Antibody Crossmatch Crossmatch P[place]armed 11/12/17 11/12/17 11/12/17 00:46 01:27 01:27 WBC RBC Hgb Hct MCV MCH MCHC RDW Plt Count Lymph % (Auto) [place] % (Auto) Eos % (Auto) Lymph # [place] # Eos # Seg Neutrophils % Seg Neuts % (Manual) Lymphocytes % (Manual) Monocytes % (Manual) Eosinophils % (Manual) Nucleated RBC % Seg Neutrophils # Seg Neutrophils # Man Lymphocytes # (Manual) Monocytes # (Manual) Eosinophils # (Manual) PT INR POC ABG pH 7.495 H POC ABG pCO2 32.0 L POC ABG pO2 64 L Sodium Potassium Chloride Carbon Dioxide BUN Creatinine Glucose POC Glucose Lactic Acid 3.70 H* Calcium Phosphorus Magnesium AST ALT Alkaline Phosphatase Troponin T 0.096 H C-Reactive Protein Total Protein Albumin LDL Cholesterol Direct HDL Cholesterol Hepatitis C Antibody Crossmatch Crossmatch Prewarmed 11/12/17 11/12/17 11/12/17 03:21 04:50 06:27 WBC RBC Hgb Hct MCV MCH MCHC RDW Plt Count Lymph % (Auto) [place] % (Auto) Eos % (Auto) Lymph # [place] # Eos # Seg Neutrophils % Seg Neuts % (Manual) Lymphocytes % (Manual) Monocytes % (Manual) Eosinophils % (Manual) Nucleated RBC % Seg Neutrophils # Seg Neutrophils # Man Lymphocytes # (Manual) Monocytes # (Manual) Eosinophils # (Manual) PT INR POC ABG pH POC ABG pCO2 POC ABG pO2 109 H Sodium Potassium Chloride Carbon Dioxide BUN Creatinine Glucose POC Glucose Lactic Acid 3.80 H* 2.20 H* Calcium Phosphorus Magnesium AST ALT Alkaline Phosphatase Troponin T C-Reactive Protein Total Protein Albumin LDL Cholesterol Direct HDL Cholesterol Hepatitis C Antibody Crossmatch Crossmatch P[place]armed 11/12/17 11/12/17 11/12/17 09:24 09:24 09:24 WBC RBC Hgb 10.4 L Hct 33.4 L MCV MCH MCHC RDW Plt Count Lymph % (Auto) [place] % (Auto) Eos % (Auto) Lymph # [place] # Eos # Seg Neutrophils % Seg Neuts % (Manual) Lymphocytes % (Manual) Monocytes % (Manual) Eosinophils % (Manual) Nucleated RBC % Seg Neutrophils # Seg Neutrophils # Man Lymphocytes # (Manual) Monocytes # (Manual) Eosinophils # (Manual) PT INR POC ABG pH POC ABG pCO2 POC ABG pO2 Sodium Potassium Chloride Carbon Dioxide BUN Creatinine Glucose POC Glucose Lactic Acid 2.90 H* Calcium Phosphorus Magnesium AST ALT Alkaline Phosphatase Troponin T 0.091 H C-Reactive Protein Total Protein Albumin LDL Cholesterol Direct HDL Cholesterol Hepatitis C Antibody Crossmatch Crossmatch P[place]armed 11/12/17 11/12/17 11/12/17 12:56 20:03 Unknown WBC RBC Hgb Hct MCV MCH MCHC RDW Plt Count Lymph % (Auto) [place] % (Auto) Eos % (Auto) Lymph # [place] # Eos # Seg Neutrophils % Seg Neuts % (Manual) Lymphocytes % (Manual) Monocytes % (Manual) Eosinophils % (Manual) Nucleated RBC % Seg Neutrophils # Seg Neutrophils # Man Lymphocytes # (Manual) Monocytes # (Manual) Eosinophils # (Manual) PT INR POC ABG pH POC ABG pCO2 POC ABG pO2 Sodium Potassium Chloride Carbon Dioxide BUN Creatinine Glucose POC Glucose Lactic Acid 3.60 H* Calcium Phosphorus Magnesium AST ALT Alkaline Phosphatase Troponin T 0.102 H* 0.156 H* D C-Reactive Protein Total Protein Albumin LDL Cholesterol Direct HDL Cholesterol Hepatitis C Antibody Crossmatch Crossmatch P[place]armed 11/12/17 11/13/17 11/13/17 Unknown 04:50 04:50 WBC 12.2 H RBC 3.51 L Hgb 9.3 L Hct 30.1 L MCV MCH 26 L MCHC 31 L RDW 18.0 H Plt Count 128 L Lymph % (Auto) 8.6 L [place] % (Auto) 11.1 H Eos % (Auto) Lymph # 1.1 L [place] # 1.4 H Eos # Seg Neutrophils % 80.1 H Seg Neuts % (Manual) Lymphocytes % (Manual) Monocytes % (Manual) Eosinophils % (Manual) Nucleated RBC % Seg Neutrophils # 9.8 H Seg Neutrophils # Man Lymphocytes # (Manual) Monocytes # (Manual) Eosinophils # (Manual) PT INR POC ABG pH POC ABG pCO2 POC ABG pO2 Sodium 149 H Potassium 5.1 H Chloride 114.4 H Carbon Dioxide 18 L BUN 52 H Creatinine 3.3 H D Glucose 129 H POC Glucose Lactic Acid Calcium 7.9 L Phosphorus Magnesium AST ALT Alkaline Phosphatase Troponin T 0.098 H C-Reactive Protein Total Protein Albumin LDL Cholesterol Direct HDL Cholesterol Hepatitis C Antibody Crossmatch Crossmatch P[place]armed 11/13/17 11/13/17 11/14/17 04:51 09:34 04:21 WBC RBC Hgb Hct MCV MCH MCHC RDW Plt Count Lymph % (Auto) [place] % (Auto) Eos % (Auto) Lymph # [place] # Eos # Seg Neutrophils % Seg Neuts % (Manual) Lymphocytes % (Manual) Monocytes % (Manual) Eosinophils % (Manual) Nucleated RBC % Seg Neutrophils # Seg Neutrophils # Man Lymphocytes # (Manual) Monocytes # (Manual) Eosinophils # (Manual) PT INR POC ABG pH POC ABG pCO2 30.1 L 29.8 L POC ABG pO2 135 H Sodium Potassium Chloride Carbon Dioxide BUN Creatinine Glucose POC Glucose Lactic Acid 2.10 H* Calcium Phosphorus Magnesium AST ALT Alkaline Phosphatase Troponin T C-Reactive Protein Total Protein Albumin LDL Cholesterol Direct HDL Cholesterol Hepatitis C Antibody Crossmatch Crossmatch P[place]armed 11/15/17 11/15/17 11/16/17 04:52 15:50 05:17 WBC RBC Hgb Hct MCV MCH MCHC RDW Plt Count Lymph % (Auto) [place] % (Auto) Eos % (Auto) Lymph # [place] # Eos # Seg Neutrophils % Seg Neuts % (Manual) Lymphocytes % (Manual) Monocytes % (Manual) Eosinophils % (Manual) Nucleated RBC % Seg Neutrophils # Seg Neutrophils # Man Lymphocytes # (Manual) Monocytes # (Manual) Eosinophils # (Manual) PT INR POC ABG pH POC ABG pCO2 29.5 L 31.5 L POC ABG pO2 115 H 122 H Sodium 154 H Potassium Chloride 117.9 H Carbon Dioxide 19 L BUN 87 H Creatinine 4.1 H Glucose POC Glucose Lactic Acid Calcium 8.1 L Phosphorus Magnesium AST ALT Alkaline Phosphatase Troponin T C-Reactive Protein Total Protein Albumin LDL Cholesterol Direct HDL Cholesterol Hepatitis C Antibody Crossmatch Crossmatch P[place]armed 11/16/17 11/17/17 11/17/17 16:37 04:07 10:00 WBC 14.7 H RBC 3.23 L Hgb 8.3 L Hct 28.1 L MCV MCH 26 L MCHC 30 L RDW 18.8 H Plt Count Lymph % (Auto) [place] % (Auto) Eos % (Auto) Lymph # [place] # Eos # Seg Neutrophils % Seg Neuts % (Manual) 75 H Lymphocytes % (Manual) 8.0 L Monocytes % (Manual) Eosinophils % (Manual) Nucleated RBC % 1.0 H Seg Neutrophils # Seg Neutrophils # Man 11.0 H Lymphocytes # (Manual) Monocytes # (Manual) 0.9 H Eosinophils # (Manual) PT INR POC ABG pH POC ABG pCO2 POC ABG pO2 Sodium 153 H 155 H Potassium Chloride 117.3 H 119.4 H Carbon Dioxide 19 L 20 L BUN 90 H 89 H Creatinine 3.9 H 3.6 H Glucose 111 H 115 H POC Glucose Lactic Acid Calcium 8.1 L 8.0 L Phosphorus Magnesium AST ALT Alkaline Phosphatase Troponin T C-Reactive Protein Total Protein Albumin LDL Cholesterol Direct HDL Cholesterol Hepatitis C Antibody Crossmatch Crossmatch P[place]armed 11/18/17 11/18/17 11/18/17 04:34 04:34 04:34 WBC 15.5 H RBC 3.13 L Hgb 8.1 L Hct 26.3 L MCV MCH 26 L MCHC 31 L RDW 18.6 H Plt Count Lymph % (Auto) [place] % (Auto) Eos % (Auto) Lymph # [place] # Eos # Seg Neutrophils % Seg Neuts % (Manual) 81.0 H Lymphocytes % (Manual) 7.0 L Monocytes % (Manual) Eosinophils % (Manual) Nucleated RBC % 1.0 H Seg Neutrophils # Seg Neutrophils # Man 12.6 H Lymphocytes # (Manual) 1.1 L Monocytes # (Manual) Eosinophils # (Manual) PT 16.7 H INR 1.30 H POC ABG pH POC ABG pCO2 POC ABG pO2 Sodium 155 H Potassium 3.2 L Chloride 121.0 H Carbon Dioxide 20 L BUN 74 H Creatinine 2.9 H Glucose 126 H POC Glucose Lactic Acid Calcium 7.9 L Phosphorus Magnesium AST ALT Alkaline Phosphatase Troponin T C-Reactive Protein Total Protein Albumin LDL Cholesterol Direct HDL Cholesterol Hepatitis C Antibody Crossmatch Crossmatch P[place]armed 11/19/17 11/19/17 11/20/17 04:44 04:44 00:38 WBC 19.0 H 22.2 H RBC 3.20 L 3.17 L Hgb 8.4 L 7.9 L Hct 27.9 L 26.4 L MCV 83 L MCH 26 L 25 L MCHC 30 L 30 L RDW 19.1 H 18.9 H Plt Count Lymph % (Auto) [place] % (Auto) Eos % (Auto) Lymph # [place] # Eos # Seg Neutrophils % Seg Neuts % (Manual) 83.0 H Lymphocytes % (Manual) 3.0 L Monocytes % (Manual) 9.0 H Eosinophils % (Manual) Nucleated RBC % Seg Neutrophils # Seg Neutrophils # Man 18.4 H Lymphocytes # (Manual) 0.7 L Monocytes # (Manual) 2.0 H Eosinophils # (Manual) PT INR POC ABG pH POC ABG pCO2 POC ABG pO2 Sodium 152 H Potassium Chloride 117.1 H Carbon Dioxide 17 L BUN 66 H Creatinine 2.8 H Glucose 119 H POC Glucose Lactic Acid Calcium 7.8 L Phosphorus Magnesium 2.70 H AST ALT Alkaline Phosphatase Troponin T C-Reactive Protein Total Protein Albumin LDL Cholesterol Direct HDL Cholesterol Hepatitis C Antibody Crossmatch Crossmatch P[place]armed 11/20/17 11/20/17 11/20/17 03:29 04:48 13:38 WBC RBC Hgb Hct MCV MCH MCHC RDW Plt Count Lymph % (Auto) [place] % (Auto) Eos % (Auto) Lymph # [place] # Eos # Seg Neutrophils % Seg Neuts % (Manual) Lymphocytes % (Manual) Monocytes % (Manual) Eosinophils % (Manual) Nucleated RBC % Seg Neutrophils # Seg Neutrophils # Man Lymphocytes # (Manual) Monocytes # (Manual) Eosinophils # (Manual) PT INR POC ABG pH POC ABG pCO2 29.4 L POC ABG pO2 Sodium 148 H Potassium 3.4 L Chloride 113.7 H Carbon Dioxide 18 L BUN 59 H Creatinine 2.7 H Glucose 113 H POC Glucose 128 H Lactic Acid Calcium 7.8 L Phosphorus Magnesium AST ALT Alkaline Phosphatase Troponin T C-Reactive Protein Total Protein Albumin LDL Cholesterol Direct HDL Cholesterol Hepatitis C Antibody Crossmatch Crossmatch P[place]armed 11/20/17 11/20/17 11/21/17 17:38 23:40 00:13 WBC RBC Hgb 8.4 L Hct 28.0 L MCV MCH MCHC RDW Plt Count Lymph % (Auto) [place] % (Auto) Eos % (Auto) Lymph # [place] # Eos # Seg Neutrophils % Seg Neuts % (Manual) Lymphocytes % (Manual) Monocytes % (Manual) Eosinophils % (Manual) Nucleated RBC % Seg Neutrophils # Seg Neutrophils # Man Lymphocytes # (Manual) Monocytes # (Manual) Eosinophils # (Manual) PT INR POC ABG pH POC ABG pCO2 POC ABG pO2 Sodium Potassium Chloride Carbon Dioxide BUN Creatinine Glucose POC Glucose 115 H 145 H Lactic Acid Calcium Phosphorus Magnesium AST ALT Alkaline Phosphatase Troponin T C-Reactive Protein Total Protein Albumin LDL Cholesterol Direct HDL Cholesterol Hepatitis C Antibody Crossmatch Crossmatch P[place]armed 11/21/17 11/21/17 11/21/17 04:30 04:30 04:58 WBC 21.0 H RBC Hgb 9.6 L Hct 32.7 L MCV MCH 25 L MCHC 29 L RDW 19.7 H Plt Count 746 H Lymph % (Auto) [place] % (Auto) Eos % (Auto) Lymph # [place] # Eos # Seg Neutrophils % Seg Neuts % (Manual) Lymphocytes % (Manual) Monocytes % (Manual) Eosinophils % (Manual) Nucleated RBC % Seg Neutrophils # Seg Neutrophils # Man Lymphocytes # (Manual) Monocytes # (Manual) Eosinophils # (Manual) PT INR POC ABG pH POC ABG pCO2 POC ABG pO2 Sodium Potassium Chloride 109.4 H Carbon Dioxide 14 L BUN 59 H Creatinine 3.0 H Glucose 137 H POC Glucose 132 H Lactic Acid Calcium 7.6 L Phosphorus Magnesium AST ALT Alkaline Phosphatase Troponin T C-Reactive Protein Total Protein Albumin LDL Cholesterol Direct HDL Cholesterol Hepatitis C Antibody Crossmatch Crossmatch P[place]armed 11/21/17 11/21/17 11/21/17 06:30 13:43 14:17 WBC 38.2 H RBC Hgb 9.0 L Hct 32.3 L MCV MCH 25 L MCHC 28 L RDW 20.0 H Plt Count 766 H Lymph % (Auto) [place] % (Auto) Eos % (Auto) Lymph # [place] # Eos # Seg Neutrophils % Seg Neuts % (Manual) 85.0 H Lymphocytes % (Manual) 1.0 L Monocytes % (Manual) Eosinophils % (Manual) Nucleated RBC % 2.0 H Seg Neutrophils # Seg Neutrophils # Man 32.5 H Lymphocytes # (Manual) 0.4 L Monocytes # (Manual) 2.3 H Eosinophils # (Manual) PT INR POC ABG pH POC ABG pCO2 18.6 L POC ABG pO2 121 H Sodium 146 H Potassium Chloride 110.9 H Carbon Dioxide 11 L BUN 62 H Creatinine 4.0 H Glucose 64 L POC Glucose Lactic Acid Calcium 7.6 L Phosphorus Magnesium AST ALT Alkaline Phosphatase Troponin T C-Reactive Protein Total Protein Albumin LDL Cholesterol Direct HDL Cholesterol Hepatitis C Antibody Crossmatch Crossmatch [place]armed 11/21/17 11/21/17 11/22/17 14:17 19:09 00:05 WBC RBC Hgb Hct MCV MCH MCHC RDW Plt Count Lymph % (Auto) [place] % (Auto) Eos % (Auto) Lymph # [place] # Eos # Seg Neutrophils % Seg Neuts % (Manual) Lymphocytes % (Manual) Monocytes % (Manual) Eosinophils % (Manual) Nucleated RBC % Seg Neutrophils # Seg Neutrophils # Man Lymphocytes # (Manual) Monocytes # (Manual) Eosinophils # (Manual) PT INR POC ABG pH POC ABG pCO2 20.0 L POC ABG pO2 Sodium Potassium Chloride Carbon Dioxide BUN Creatinine Glucose POC Glucose 127 H Lactic Acid 7.70 H* Calcium Phosphorus Magnesium AST ALT Alkaline Phosphatase Troponin T C-Reactive Protein Total Protein Albumin LDL Cholesterol Direct HDL Cholesterol Hepatitis C Antibody Crossmatch Crossmatch [place] 11/22/17 11/22/17 11/22/17 03:53 06:00 07:25 WBC RBC Hgb Hct MCV MCH MCHC RDW Plt Count Lymph % (Auto) [place] % (Auto) Eos % (Auto) Lymph # [place] # Eos # Seg Neutrophils % Seg Neuts % (Manual) Lymphocytes % (Manual) Monocytes % (Manual) Eosinophils % (Manual) Nucleated RBC % Seg Neutrophils # Seg Neutrophils # Man Lymphocytes # (Manual) Monocytes # (Manual) Eosinophils # (Manual) PT INR POC ABG pH POC ABG pCO2 22.2 L POC ABG pO2 Sodium 147 H Potassium Chloride 111.9 H Carbon Dioxide 16 L BUN 72 H Creatinine 5.1 H Glucose 181 H POC Glucose 180 H Lactic Acid Calcium 7.1 L Phosphorus Magnesium AST ALT Alkaline Phosphatase Troponin T C-Reactive Protein Total Protein Albumin LDL Cholesterol Direct HDL Cholesterol Hepatitis C Antibody Crossmatch Crossmatch [place] 11/22/17 11/22/17 11/22/17 07:25 07:25 12:05 WBC 31.4 H RBC 3.22 L Hgb 8.0 L Hct 26.7 L MCV 83 L MCH 25 L MCHC 30 L RDW 19.4 H Plt Count 602 H Lymph % (Auto) [place] % (Auto) Eos % (Auto) Lymph # [place] # Eos # Seg Neutrophils % Seg Neuts % (Manual) Lymphocytes % (Manual) Monocytes % (Manual) Eosinophils % (Manual) Nucleated RBC % Seg Neutrophils # Seg Neutrophils # Man Lymphocytes # (Manual) Monocytes # (Manual) Eosinophils # (Manual) PT INR POC ABG pH POC ABG pCO2 POC ABG pO2 Sodium Potassium Chloride Carbon Dioxide BUN Creatinine Glucose POC Glucose 182 H Lactic Acid 5.00 H* Calcium Phosphorus Magnesium AST ALT Alkaline Phosphatase Troponin T C-Reactive Protein Total Protein Albumin LDL Cholesterol Direct HDL Cholesterol Hepatitis C Antibody Crossmatch Crossmatch [place] 11/22/17 11/23/17 11/23/17 19:45 01:28 04:56 WBC RBC Hgb Hct MCV MCH MCHC RDW Plt Count Lymph % (Auto) [place] % (Auto) Eos % (Auto) Lymph # [place] # Eos # Seg Neutrophils % Seg Neuts % (Manual) Lymphocytes % (Manual) Monocytes % (Manual) Eosinophils % (Manual) Nucleated RBC % Seg Neutrophils # Seg Neutrophils # Man Lymphocytes # (Manual) Monocytes # (Manual) Eosinophils # (Manual) PT INR POC ABG pH 7.505 H POC ABG pCO2 26.3 L POC ABG pO2 Sodium Potassium Chloride Carbon Dioxide BUN Creatinine Glucose POC Glucose 165 H Lactic Acid Calcium Phosphorus Magnesium AST ALT Alkaline Phosphatase Troponin T C-Reactive Protein Total Protein Albumin LDL Cholesterol Direct HDL Cholesterol Hepatitis C Antibody Reactive A Crossmatch Crossmatch [place]armed 11/23/17 11/23/17 11/23/17 07:05 12:32 17:53 WBC RBC Hgb Hct MCV MCH MCHC RDW Plt Count Lymph % (Auto) [place] % (Auto) Eos % (Auto) Lymph # [place] # Eos # Seg Neutrophils % Seg Neuts % (Manual) Lymphocytes % (Manual) Monocytes % (Manual) Eosinophils % (Manual) Nucleated RBC % Seg Neutrophils # Seg Neutrophils # Man Lymphocytes # (Manual) Monocytes # (Manual) Eosinophils # (Manual) PT INR POC ABG pH POC ABG pCO2 POC ABG pO2 Sodium Potassium Chloride Carbon Dioxide 18 L BUN 61 H Creatinine 4.2 H Glucose 153 H POC Glucose 138 H 173 H Lactic Acid Calcium 7.5 L Phosphorus Magnesium AST ALT Alkaline Phosphatase Troponin T C-Reactive Protein Total Protein Albumin LDL Cholesterol Direct HDL Cholesterol Hepatitis C Antibody Crossmatch Crossmatch [place] 11/23/17 11/24/17 11/24/17 23:41 05:42 05:42 WBC 21.5 H RBC 2.48 L Hgb 6.2 L Hct 20.3 L D MCV 82 L MCH 25 L MCHC 31 L RDW 18.9 H Plt Count Lymph % (Auto) [place] % (Auto) Eos % (Auto) Lymph # [place] # Eos # Seg Neutrophils % Seg Neuts % (Manual) 94.0 H Lymphocytes % (Manual) 3.0 L Monocytes % (Manual) Eosinophils % (Manual) Nucleated RBC % Seg Neutrophils # Seg Neutrophils # Man 20.2 H Lymphocytes # (Manual) 0.6 L Monocytes # (Manual) Eosinophils # (Manual) PT INR POC ABG pH POC ABG pCO2 POC ABG pO2 Sodium 149 H Potassium 2.8 L* D Chloride 113.9 H Carbon Dioxide 19 L BUN 31 H Creatinine 2.3 H Glucose 103 H POC Glucose 133 H Lactic Acid Calcium 5.3 L* D Phosphorus Magnesium 1.30 L AST ALT Alkaline Phosphatase Troponin T C-Reactive Protein Total Protein Albumin LDL Cholesterol Direct HDL Cholesterol Hepatitis C Antibody Crossmatch Crossmatch [place] 11/24/17 11/24/17 11/24/17 05:42 08:27 08:27 WBC RBC Hgb Hct MCV MCH MCHC RDW Plt Count Lymph % (Auto) [place] % (Auto) Eos % (Auto) Lymph # [place] # Eos # Seg Neutrophils % Seg Neuts % (Manual) Lymphocytes % (Manual) Monocytes % (Manual) Eosinophils % (Manual) Nucleated RBC % Seg Neutrophils # Seg Neutrophils # Man Lymphocytes # (Manual) Monocytes # (Manual) Eosinophils # (Manual) PT INR POC ABG pH POC ABG pCO2 POC ABG pO2 Sodium Potassium Chloride Carbon Dioxide BUN Creatinine Glucose POC Glucose Lactic Acid 5.40 H* 5.20 H* Calcium Phosphorus Magnesium AST ALT Alkaline Phosphatase Troponin T C-Reactive Protein Total Protein Albumin LDL Cholesterol Direct HDL Cholesterol Hepatitis C Antibody Crossmatch See Detail Crossmatch P[facility]armed 11/24/17 11/24/17 11/24/17 12:13 17:22 21:53 WBC 23.0 H RBC 3.32 L Hgb 8.8 L Hct 27.1 L D MCV 82 L MCH 26 L MCHC RDW 17.3 H Plt Count Lymph % (Auto) [place] % (Auto) Eos % (Auto) Lymph # [place] # Eos # Seg Neutrophils % Seg Neuts % (Manual) Lymphocytes % (Manual) Monocytes % (Manual) Eosinophils % (Manual) Nucleated RBC % Seg Neutrophils # Seg Neutrophils # Man Lymphocytes # (Manual) Monocytes # (Manual) Eosinophils # (Manual) PT INR POC ABG pH POC ABG pCO2 POC ABG pO2 Sodium Potassium Chloride Carbon Dioxide BUN Creatinine Glucose POC Glucose 138 H 180 H Lactic Acid Calcium Phosphorus Magnesium AST ALT Alkaline Phosphatase Troponin T C-Reactive Protein Total Protein Albumin LDL Cholesterol Direct HDL Cholesterol Hepatitis C Antibody Crossmatch Crossmatch [place] 11/24/17 11/24/17 11/25/17 21:53 23:28 04:19 WBC RBC Hgb Hct MCV MCH MCHC RDW Plt Count Lymph % (Auto) [place] % (Auto) Eos % (Auto) Lymph # [place] # Eos # Seg Neutrophils % Seg Neuts % (Manual) Lymphocytes % (Manual) Monocytes % (Manual) Eosinophils % (Manual) Nucleated RBC % Seg Neutrophils # Seg Neutrophils # Man Lymphocytes # (Manual) Monocytes # (Manual) Eosinophils # (Manual) PT INR POC ABG pH POC ABG pCO2 POC ABG pO2 Sodium Potassium Chloride 96.3 L Carbon Dioxide BUN 28 H 31 H Creatinine 2.3 H 2.6 H Glucose 125 H 101 H POC Glucose 111 H Lactic Acid Calcium 7.5 L D 7.4 L Phosphorus Magnesium AST 170 H ALT 179 H Alkaline Phosphatase 175 H Troponin T C-Reactive Protein Total Protein 5.5 L Albumin 1.8 L LDL Cholesterol Direct HDL Cholesterol Hepatitis C Antibody Crossmatch Crossmatch [place] 11/25/17 11/25/17 11/26/17 04:19 04:19 06:29 WBC 22.5 H RBC 3.48 L Hgb 9.1 L Hct 28.3 L MCV 81 L MCH 26 L MCHC RDW 17.4 H Plt Count Lymph % (Auto) [place] % (Auto) Eos % (Auto) Lymph # [place] # Eos # Seg Neutrophils % Seg Neuts % (Manual) Lymphocytes % (Manual) Monocytes % (Manual) Eosinophils % (Manual) Nucleated RBC % Seg Neutrophils # Seg Neutrophils # Man Lymphocytes # (Manual) Monocytes # (Manual) Eosinophils # (Manual) PT 23.6 H INR 1.96 H POC ABG pH POC ABG pCO2 POC ABG pO2 Sodium Potassium Chloride Carbon Dioxide BUN 31 H Creatinine 2.6 H Glucose 101 H POC Glucose Lactic Acid Calcium 7.5 L Phosphorus Magnesium AST ALT Alkaline Phosphatase Troponin T C-Reactive Protein Total Protein Albumin LDL Cholesterol Direct HDL Cholesterol Hepatitis C Antibody Crossmatch Crossmatch [facility] 11/26/17 11/27/17 11/27/17 06:34 04:06 04:06 WBC 11.3 H RBC 3.13 L Hgb 8.4 L Hct 25.8 L MCV 82 L MCH 27 L MCHC RDW 17.7 H Plt Count Lymph % (Auto) 7.4 L [place] % (Auto) Eos % (Auto) Lymph # 0.8 L [place] # Eos # Seg Neutrophils % 83.7 H Seg Neuts % (Manual) Lymphocytes % (Manual) Monocytes % (Manual) Eosinophils % (Manual) Nucleated RBC % Seg Neutrophils # 9.5 H Seg Neutrophils # Man Lymphocytes # (Manual) Monocytes # (Manual) Eosinophils # (Manual) PT INR POC ABG pH POC ABG pCO2 POC ABG pO2 Sodium Potassium Chloride 97.9 L Carbon Dioxide BUN 43 H 29 H Creatinine 3.5 H 2.9 H Glucose POC Glucose Lactic Acid Calcium 7.5 L 8.1 L Phosphorus Magnesium AST ALT Alkaline Phosphatase Troponin T C-Reactive Protein Total Protein Albumin LDL Cholesterol Direct HDL Cholesterol Hepatitis C Antibody Crossmatch Crossmatch [facility] 11/27/17 11/28/17 11/28/17 18:11 00:16 03:50 WBC RBC Hgb Hct MCV MCH MCHC RDW Plt Count Lymph % (Auto) [place] % (Auto) Eos % (Auto) Lymph # [place] # Eos # Seg Neutrophils % Seg Neuts % (Manual) Lymphocytes % (Manual) Monocytes % (Manual) Eosinophils % (Manual) Nucleated RBC % Seg Neutrophils # Seg Neutrophils # Man Lymphocytes # (Manual) Monocytes # (Manual) Eosinophils # (Manual) PT INR POC ABG pH POC ABG pCO2 POC ABG pO2 Sodium Potassium Chloride Carbon Dioxide BUN 39 H Creatinine 4.1 H Glucose 108 H POC Glucose 110 H 124 H Lactic Acid Calcium 7.9 L Phosphorus Magnesium AST ALT Alkaline Phosphatase Troponin T C-Reactive Protein Total Protein Albumin LDL Cholesterol Direct HDL Cholesterol Hepatitis C Antibody Crossmatch Crossmatch [facility] 11/28/17 11/28/17 11/28/17 05:03 11:36 17:42 WBC RBC Hgb Hct MCV MCH MCHC RDW Plt Count Lymph % (Auto) [place] % (Auto) Eos % (Auto) Lymph # [place] # Eos # Seg Neutrophils % Seg Neuts % (Manual) Lymphocytes % (Manual) Monocytes % (Manual) Eosinophils % (Manual) Nucleated RBC % Seg Neutrophils # Seg Neutrophils # Man Lymphocytes # (Manual) Monocytes # (Manual) Eosinophils # (Manual) PT INR POC ABG pH POC ABG pCO2 POC ABG pO2 Sodium Potassium Chloride Carbon Dioxide BUN Creatinine Glucose POC Glucose 134 H 114 H 119 H Lactic Acid Calcium Phosphorus Magnesium AST ALT Alkaline Phosphatase Troponin T C-Reactive Protein Total Protein Albumin LDL Cholesterol Direct HDL Cholesterol Hepatitis C Antibody Crossmatch Crossmatch [facility] 11/29/17 11/29/17 11/29/17 00:22 05:25 05:25 WBC 12.3 H RBC 3.34 L Hgb 8.6 L Hct 27.3 L MCV 82 L MCH 26 L MCHC RDW 18.5 H Plt Count Lymph % (Auto) 3.7 L [place] % (Auto) 7.7 H Eos % (Auto) Lymph # 0.5 L [place] # 1.0 H Eos # Seg Neutrophils % 86.5 H Seg Neuts % (Manual) Lymphocytes % (Manual) Monocytes % (Manual) Eosinophils % (Manual) Nucleated RBC % Seg Neutrophils # 10.7 H Seg Neutrophils # Man Lymphocytes # (Manual) Monocytes # (Manual) Eosinophils # (Manual) PT INR POC ABG pH POC ABG pCO2 POC ABG pO2 Sodium Potassium Chloride Carbon Dioxide BUN 29 H Creatinine 3.5 H Glucose 109 H POC Glucose 137 H Lactic Acid Calcium 7.8 L Phosphorus Magnesium AST ALT Alkaline Phosphatase Troponin T C-Reactive Protein Total Protein Albumin LDL Cholesterol Direct HDL Cholesterol Hepatitis C Antibody Crossmatch Crossmatch [facility] 11/29/17 11/30/17 11/30/17 05:26 00:26 04:17 WBC RBC Hgb Hct MCV MCH MCHC RDW Plt Count Lymph % (Auto) [place] % (Auto) Eos % (Auto) Lymph # [place] # Eos # Seg Neutrophils % Seg Neuts % (Manual) Lymphocytes % (Manual) Monocytes % (Manual) Eosinophils % (Manual) Nucleated RBC % Seg Neutrophils # Seg Neutrophils # Man Lymphocytes # (Manual) Monocytes # (Manual) Eosinophils # (Manual) PT INR POC ABG pH POC ABG pCO2 POC ABG pO2 Sodium Potassium Chloride Carbon Dioxide BUN 38 H Creatinine 4.3 H Glucose 109 H POC Glucose 129 H 152 H Lactic Acid Calcium 7.8 L Phosphorus Magnesium AST ALT Alkaline Phosphatase Troponin T C-Reactive Protein Total Protein Albumin LDL Cholesterol Direct HDL Cholesterol Hepatitis C Antibody Crossmatch Crossmatch [facility] 11/30/17 11/30/17 11/30/17 12:17 16:23 23:35 WBC RBC Hgb Hct MCV MCH MCHC RDW Plt Count Lymph % (Auto) [place] % (Auto) Eos % (Auto) Lymph # [place] # Eos # Seg Neutrophils % Seg Neuts % (Manual) Lymphocytes % (Manual) Monocytes % (Manual) Eosinophils % (Manual) Nucleated RBC % Seg Neutrophils # Seg Neutrophils # Man Lymphocytes # (Manual) Monocytes # (Manual) Eosinophils # (Manual) PT INR POC ABG pH POC ABG pCO2 POC ABG pO2 Sodium Potassium Chloride Carbon Dioxide BUN Creatinine Glucose POC Glucose 170 H 114 H 122 H Lactic Acid Calcium Phosphorus Magnesium AST ALT Alkaline Phosphatase Troponin T C-Reactive Protein Total Protein Albumin LDL Cholesterol Direct HDL Cholesterol Hepatitis C Antibody Crossmatch Crossmatch [facility] 12/01/17 12/01/17 12/01/17 04:09 04:09 12:17 WBC 14.1 H RBC 3.32 L Hgb 8.6 L Hct 27.0 L MCV 81 L MCH 26 L MCHC RDW 18.7 H Plt Count Lymph % (Auto) 5.5 L [place] % (Auto) 9.7 H Eos % (Auto) Lymph # 0.8 L [place] # 1.4 H Eos # Seg Neutrophils % 82.9 H Seg Neuts % (Manual) Lymphocytes % (Manual) Monocytes % (Manual) Eosinophils % (Manual) Nucleated RBC % Seg Neutrophils # 11.7 H Seg Neutrophils # Man Lymphocytes # (Manual) Monocytes # (Manual) Eosinophils # (Manual) PT INR POC ABG pH POC ABG pCO2 POC ABG pO2 Sodium Potassium 3.4 L Chloride Carbon Dioxide BUN 21 H Creatinine 3.0 H Glucose 108 H POC Glucose 126 H Lactic Acid Calcium 8.0 L Phosphorus Magnesium AST ALT Alkaline Phosphatase Troponin T C-Reactive Protein Total Protein Albumin LDL Cholesterol Direct HDL Cholesterol Hepatitis C Antibody Crossmatch Crossmatch [facility] 12/02/17 12/03/17 12/03/17 23:46 02:52 05:54 WBC 17.2 H RBC 3.21 L Hgb 8.5 L Hct 25.8 L MCV 80 L MCH 26 L MCHC RDW 18.4 H Plt Count 128 L Lymph % (Auto) [place] % (Auto) Eos % (Auto) Lymph # [place] # Eos # Seg Neutrophils % Seg Neuts % (Manual) Lymphocytes % (Manual) Monocytes % (Manual) Eosinophils % (Manual) Nucleated RBC % Seg Neutrophils # Seg Neutrophils # Man Lymphocytes # (Manual) Monocytes # (Manual) Eosinophils # (Manual) PT INR POC ABG pH POC ABG pCO2 POC ABG pO2 Sodium Potassium Chloride Carbon Dioxide BUN Creatinine Glucose POC Glucose 125 H 107 H Lactic Acid Calcium Phosphorus Magnesium AST ALT Alkaline Phosphatase Troponin T C-Reactive Protein Total Protein Albumin LDL Cholesterol Direct HDL Cholesterol Hepatitis C Antibody Crossmatch Crossmatch [facility] 12/03/17 12/03/17 12/04/17 12:05 Unknown 12:26 WBC RBC Hgb Hct MCV MCH MCHC RDW Plt Count Lymph % (Auto) [place] % (Auto) Eos % (Auto) Lymph # [place] # Eos # Seg Neutrophils % Seg Neuts % (Manual) Lymphocytes % (Manual) Monocytes % (Manual) Eosinophils % (Manual) Nucleated RBC % Seg Neutrophils # Seg Neutrophils # Man Lymphocytes # (Manual) Monocytes # (Manual) Eosinophils # (Manual) PT INR POC ABG pH POC ABG pCO2 POC ABG pO2 Sodium Potassium Chloride Carbon Dioxide BUN 21 H Creatinine 2.8 H Glucose 113 H POC Glucose 106 H 119 H Lactic Acid Calcium Phosphorus Magnesium AST ALT Alkaline Phosphatase Troponin T C-Reactive Protein Total Protein Albumin LDL Cholesterol Direct HDL Cholesterol Hepatitis C Antibody Crossmatch Crossmatch [facility] 12/04/17 12/05/17 12/05/17 17:57 00:52 04:05 WBC RBC 2.96 L Hgb 7.7 L Hct 24.2 L MCV 82 L MCH 26 L MCHC RDW 18.8 H Plt Count 105 L Lymph % (Auto) 10.6 L [place] % (Auto) 12.1 H Eos % (Auto) 5.2 H Lymph # 1.1 L [place] # 1.3 H Eos # 0.5 H Seg Neutrophils % 71.3 H Seg Neuts % (Manual) Lymphocytes % (Manual) Monocytes % (Manual) Eosinophils % (Manual) Nucleated RBC % Seg Neutrophils # Seg Neutrophils # Man Lymphocytes # (Manual) Monocytes # (Manual) Eosinophils # (Manual) PT INR POC ABG pH POC ABG pCO2 POC ABG pO2 Sodium Potassium Chloride Carbon Dioxide BUN Creatinine Glucose POC Glucose 140 H 117 H Lactic Acid Calcium Phosphorus Magnesium AST ALT Alkaline Phosphatase Troponin T C-Reactive Protein Total Protein Albumin LDL Cholesterol Direct HDL Cholesterol Hepatitis C Antibody Crossmatch Crossmatch [facility] 12/05/17 12/05/17 12/06/17 04:05 22:50 08:18 WBC RBC 2.80 L Hgb 7.4 L Hct 23.0 L MCV 82 L MCH 27 L MCHC RDW 19.5 H Plt Count 125 L Lymph % (Auto) [place] % (Auto) Eos % (Auto) Lymph # [place] # Eos # Seg Neutrophils % Seg Neuts % (Manual) Lymphocytes % (Manual) Monocytes % (Manual) Eosinophils % (Manual) Nucleated RBC % Seg Neutrophils # Seg Neutrophils # Man Lymphocytes # (Manual) Monocytes # (Manual) Eosinophils # (Manual) PT INR POC ABG pH POC ABG pCO2 POC ABG pO2 Sodium Potassium Chloride 107.4 H Carbon Dioxide BUN Creatinine 2.5 H Glucose POC Glucose 112 H Lactic Acid Calcium 8.3 L Phosphorus Magnesium AST ALT Alkaline Phosphatase Troponin T C-Reactive Protein Total Protein Albumin LDL Cholesterol Direct HDL Cholesterol Hepatitis C Antibody Crossmatch Crossmatch [facility] 12/06/17 12/06/17 12/06/17 08:18 12:01 23:58 WBC RBC Hgb Hct MCV MCH MCHC RDW Plt Count Lymph % (Auto) [place] % (Auto) Eos % (Auto) Lymph # [place] # Eos # Seg Neutrophils % Seg Neuts % (Manual) Lymphocytes % (Manual) Monocytes % (Manual) Eosinophils % (Manual) Nucleated RBC % Seg Neutrophils # Seg Neutrophils # Man Lymphocytes # (Manual) Monocytes # (Manual) Eosinophils # (Manual) PT INR POC ABG pH POC ABG pCO2 POC ABG pO2 Sodium Potassium Chloride 108.4 H Carbon Dioxide BUN 28 H Creatinine 3.7 H Glucose 103 H POC Glucose 106 H 108 H Lactic Acid Calcium 8.0 L Phosphorus Magnesium AST ALT Alkaline Phosphatase Troponin T C-Reactive Protein Total Protein Albumin LDL Cholesterol Direct HDL Cholesterol Hepatitis C Antibody Crossmatch Crossmatch [facility] 12/07/17 12/07/17 12/07/17 05:47 05:47 18:03 WBC RBC 2.79 L Hgb 7.3 L Hct 22.8 L MCV 82 L MCH 26 L MCHC RDW 19.1 H Plt Count 101 L Lymph % (Auto) [place] % (Auto) Eos % (Auto) Lymph # [place] # Eos # Seg Neutrophils % Seg Neuts % (Manual) 72.0 H Lymphocytes % (Manual) 13.0 L Monocytes % (Manual) Eosinophils % (Manual) 9.0 H Nucleated RBC % Seg Neutrophils # Seg Neutrophils # Man Lymphocytes # (Manual) 1.1 L Monocytes # (Manual) Eosinophils # (Manual) 0.8 H PT INR POC ABG pH POC ABG pCO2 POC ABG pO2 Sodium 146 H Potassium Chloride 109.8 H Carbon Dioxide BUN 36 H Creatinine 4.0 H Glucose POC Glucose 143 H Lactic Acid Calcium 8.0 L Phosphorus Magnesium AST ALT Alkaline Phosphatase Troponin T C-Reactive Protein Total Protein Albumin LDL Cholesterol Direct HDL Cholesterol Hepatitis C Antibody Crossmatch Crossmatch [facility] 12/07/17 12/08/17 12/08/17 23:33 05:10 05:10 WBC RBC 2.91 L Hgb 7.5 L Hct 24.4 L MCV MCH 26 L MCHC 31 L RDW 19.7 H Plt Count 109 L Lymph % (Auto) [place] % (Auto) Eos % (Auto) Lymph # [place] # Eos # Seg Neutrophils % Seg Neuts % (Manual) Lymphocytes % (Manual) 11.0 L Monocytes % (Manual) Eosinophils % (Manual) 12.0 H Nucleated RBC % Seg Neutrophils # Seg Neutrophils # Man Lymphocytes # (Manual) 0.7 L Monocytes # (Manual) Eosinophils # (Manual) 0.7 H PT INR POC ABG pH POC ABG pCO2 POC ABG pO2 Sodium 147 H Potassium Chloride 110.4 H Carbon Dioxide BUN Creatinine 2.8 H Glucose POC Glucose 107 H Lactic Acid Calcium 7.8 L Phosphorus Magnesium AST ALT Alkaline Phosphatase Troponin T C-Reactive Protein Total Protein Albumin LDL Cholesterol Direct HDL Cholesterol Hepatitis C Antibody Crossmatch Crossmatch [facility] 12/09/17 12/09/17 12/09/17 04:18 04:18 12:16 WBC RBC Hgb 7.2 L Hct 23.2 L MCV MCH MCHC RDW Plt Count Lymph % (Auto) [place] % (Auto) Eos % (Auto) Lymph # [place] # Eos # Seg Neutrophils % Seg Neuts % (Manual) Lymphocytes % (Manual) Monocytes % (Manual) Eosinophils % (Manual) Nucleated RBC % Seg Neutrophils # Seg Neutrophils # Man Lymphocytes # (Manual) Monocytes # (Manual) Eosinophils # (Manual) PT INR POC ABG pH POC ABG pCO2 POC ABG pO2 Sodium 150 H Potassium Chloride 114.5 H Carbon Dioxide BUN 25 H Creatinine 3.3 H Glucose POC Glucose 142 H Lactic Acid Calcium 7.7 L Phosphorus Magnesium AST ALT Alkaline Phosphatase Troponin T C-Reactive Protein Total Protein Albumin LDL Cholesterol Direct HDL Cholesterol Hepatitis C Antibody Crossmatch Crossmatch [facility] 12/10/17 12/10/17 12/11/17 05:14 05:14 12:05 WBC RBC 2.81 L Hgb 7.4 L Hct 23.9 L MCV MCH 26 L MCHC 31 L RDW 19.1 H Plt Count 128 L Lymph % (Auto) [place] % (Auto) Eos % (Auto) Lymph # [place] # Eos # Seg Neutrophils % Seg Neuts % (Manual) 78.0 H Lymphocytes % (Manual) 8.0 L Monocytes % (Manual) Eosinophils % (Manual) 5.0 H Nucleated RBC % Seg Neutrophils # Seg Neutrophils # Man Lymphocytes # (Manual) 0.6 L Monocytes # (Manual) Eosinophils # (Manual) PT INR POC ABG pH POC ABG pCO2 POC ABG pO2 Sodium Potassium Chloride Carbon Dioxide BUN Creatinine 2.2 H Glucose POC Glucose 127 H Lactic Acid Calcium 7.8 L Phosphorus Magnesium AST ALT Alkaline Phosphatase Troponin T C-Reactive Protein Total Protein Albumin LDL Cholesterol Direct HDL Cholesterol Hepatitis C Antibody Crossmatch Crossmatch [facility] 12/11/17 12/11/17 12/11/17 15:26 18:36 23:40 WBC RBC Hgb Hct MCV MCH MCHC RDW Plt Count Lymph % (Auto) [place] % (Auto) Eos % (Auto) Lymph # [place] # Eos # Seg Neutrophils % Seg Neuts % (Manual) Lymphocytes % (Manual) Monocytes % (Manual) Eosinophils % (Manual) Nucleated RBC % Seg Neutrophils # Seg Neutrophils # Man Lymphocytes # (Manual) Monocytes # (Manual) Eosinophils # (Manual) PT INR POC ABG pH POC ABG pCO2 POC ABG pO2 Sodium Potassium 3.3 L Chloride Carbon Dioxide BUN Creatinine 1.6 H Glucose POC Glucose 106 H 110 H Lactic Acid Calcium 7.6 L Phosphorus Magnesium AST ALT Alkaline Phosphatase Troponin T C-Reactive Protein Total Protein Albumin LDL Cholesterol Direct HDL Cholesterol Hepatitis C Antibody Crossmatch Crossmatch [facility] 12/12/17 12/12/17 12/12/17 05:10 05:41 05:41 WBC RBC 3.17 L Hgb 8.1 L Hct 25.7 L MCV 81 L MCH 25 L MCHC 31 L RDW 19.2 H Plt Count Lymph % (Auto) [place] % (Auto) Eos % (Auto) Lymph # [place] # Eos # Seg Neutrophils % Seg Neuts % (Manual) 74.0 H Lymphocytes % (Manual) 6.0 L Monocytes % (Manual) Eosinophils % (Manual) 9.0 H Nucleated RBC % Seg Neutrophils # Seg Neutrophils # Man Lymphocytes # (Manual) 0.6 L Monocytes # (Manual) Eosinophils # (Manual) 0.9 H PT INR POC ABG pH POC ABG pCO2 POC ABG pO2 Sodium Potassium 3.5 L Chloride Carbon Dioxide BUN Creatinine 2.3 H Glucose 113 H POC Glucose 112 H Lactic Acid Calcium 7.5 L Phosphorus Magnesium AST ALT Alkaline Phosphatase Troponin T C-Reactive Protein Total Protein Albumin LDL Cholesterol Direct HDL Cholesterol Hepatitis C Antibody Crossmatch Crossmatch [facility] 12/13/17 12/13/17 12/13/17 06:14 12:00 17:37 WBC RBC Hgb Hct MCV MCH MCHC RDW Plt Count Lymph % (Auto) [place] % (Auto) Eos % (Auto) Lymph # [place] # Eos # Seg Neutrophils % Seg Neuts % (Manual) Lymphocytes % (Manual) Monocytes % (Manual) Eosinophils % (Manual) Nucleated RBC % Seg Neutrophils # Seg Neutrophils # Man Lymphocytes # (Manual) Monocytes # (Manual) Eosinophils # (Manual) PT INR POC ABG pH POC ABG pCO2 POC ABG pO2 Sodium Potassium Chloride Carbon Dioxide BUN Creatinine Glucose POC Glucose 130 H 133 H 136 H Lactic Acid Calcium Phosphorus Magnesium AST ALT Alkaline Phosphatase Troponin T C-Reactive Protein Total Protein Albumin LDL Cholesterol Direct HDL Cholesterol Hepatitis C Antibody Crossmatch Crossmatch [facility] 12/13/17 12/14/17 12/14/17 23:39 05:11 05:11 WBC RBC Hgb Hct MCV MCH MCHC RDW Plt Count Lymph % (Auto) [place] % (Auto) Eos % (Auto) Lymph # [place] # Eos # Seg Neutrophils % Seg Neuts % (Manual) Lymphocytes % (Manual) Monocytes % (Manual) Eosinophils % (Manual) Nucleated RBC % Seg Neutrophils # Seg Neutrophils # Man Lymphocytes # (Manual) Monocytes # (Manual) Eosinophils # (Manual) PT 15.4 H INR 1.17 H POC ABG pH POC ABG pCO2 POC ABG pO2 Sodium Potassium Chloride Carbon Dioxide 21 L BUN 26 H Creatinine 2.9 H Glucose POC Glucose 108 H Lactic Acid Calcium 7.2 L Phosphorus Magnesium AST ALT Alkaline Phosphatase Troponin T C-Reactive Protein Total Protein Albumin LDL Cholesterol Direct HDL Cholesterol Hepatitis C Antibody Crossmatch Crossmatch [facility] 12/14/17 12/14/17 12/14/17 12:00 16:01 18:24 WBC 12.9 H RBC 3.25 L Hgb 8.2 L Hct 26.2 L MCV 81 L MCH 25 L MCHC 31 L RDW 19.2 H Plt Count Lymph % (Auto) [place] % (Auto) Eos % (Auto) Lymph # [place] # Eos # Seg Neutrophils % Seg Neuts % (Manual) Lymphocytes % (Manual) Monocytes % (Manual) Eosinophils % (Manual) Nucleated RBC % Seg Neutrophils # Seg Neutrophils # Man Lymphocytes # (Manual) Monocytes # (Manual) Eosinophils # (Manual) PT INR POC ABG pH POC ABG pCO2 POC ABG pO2 Sodium Potassium Chloride Carbon Dioxide BUN Creatinine Glucose POC Glucose 138 H 120 H Lactic Acid Calcium Phosphorus Magnesium AST ALT Alkaline Phosphatase Troponin T C-Reactive Protein Total Protein Albumin LDL Cholesterol Direct HDL Cholesterol Hepatitis C Antibody Crossmatch Crossmatch [facility] 12/14/17 12/14/17 12/15/17 23:29 Unknown 05:57 WBC 12.5 H RBC 2.48 L Hgb 6.0 L Hct 24.4 L MCV 79 L MCH 24 L MCHC 30 L RDW 18.5 H Plt Count 131 L Lymph % (Auto) 7.0 L [place] % (Auto) 8.9 H Eos % (Auto) 8.3 H Lymph # 0.9 L [place] # 1.1 H Eos # 1.0 H Seg Neutrophils % 75.2 H Seg Neuts % (Manual) Lymphocytes % (Manual) Monocytes % (Manual) Eosinophils % (Manual) Nucleated RBC % Seg Neutrophils # 9.4 H Seg Neutrophils # Man Lymphocytes # (Manual) Monocytes # (Manual) Eosinophils # (Manual) PT INR POC ABG pH POC ABG pCO2 POC ABG pO2 Sodium Potassium Chloride Carbon Dioxide BUN Creatinine Glucose POC Glucose 110 H 113 H Lactic Acid Calcium Phosphorus Magnesium AST ALT Alkaline Phosphatase Troponin T C-Reactive Protein Total Protein Albumin LDL Cholesterol Direct HDL Cholesterol Hepatitis C Antibody Crossmatch Crossmatch [facility] 12/15/17 12/15/17 12/15/17 11:50 13:37 17:58 WBC RBC Hgb 7.3 L Hct 23.3 L MCV MCH MCHC RDW Plt Count Lymph % (Auto) [place] % (Auto) Eos % (Auto) Lymph # [place] # Eos # Seg Neutrophils % Seg Neuts % (Manual) Lymphocytes % (Manual) Monocytes % (Manual) Eosinophils % (Manual) Nucleated RBC % Seg Neutrophils # Seg Neutrophils # Man Lymphocytes # (Manual) Monocytes # (Manual) Eosinophils # (Manual) PT INR POC ABG pH POC ABG pCO2 POC ABG pO2 Sodium Potassium Chloride Carbon Dioxide BUN Creatinine Glucose POC Glucose 106 H 110 H Lactic Acid Calcium Phosphorus Magnesium AST ALT Alkaline Phosphatase Troponin T C-Reactive Protein Total Protein Albumin LDL Cholesterol Direct HDL Cholesterol Hepatitis C Antibody Crossmatch Crossmatch [facility] 12/15/17 12/16/17 12/16/17 23:30 04:55 05:14 WBC 13.2 H RBC 2.79 L Hgb 6.9 L Hct 22.2 L MCV 80 L MCH 25 L MCHC 31 L RDW 18.8 H Plt Count Lymph % (Auto) 7.3 L [place] % (Auto) 11.0 H Eos % (Auto) 8.2 H Lymph # 1.0 L [place] # 1.4 H Eos # 1.1 H Seg Neutrophils % 72.9 H Seg Neuts % (Manual) Lymphocytes % (Manual) Monocytes % (Manual) Eosinophils % (Manual) Nucleated RBC % Seg Neutrophils # 9.6 H Seg Neutrophils # Man Lymphocytes # (Manual) Monocytes # (Manual) Eosinophils # (Manual) PT INR POC ABG pH POC ABG pCO2 POC ABG pO2 Sodium 131 L D Potassium 2.8 L* D Chloride 93.2 L Carbon Dioxide BUN 24 H Creatinine 2.0 H Glucose POC Glucose 111 H Lactic Acid Calcium 7.7 L Phosphorus Magnesium AST ALT Alkaline Phosphatase Troponin T C-Reactive Protein Total Protein Albumin LDL Cholesterol Direct HDL Cholesterol Hepatitis C Antibody Crossmatch Crossmatch [facility] 12/16/17 12/16/17 12/16/17 13:01 17:32 23:39 WBC RBC Hgb Hct MCV MCH MCHC RDW Plt Count Lymph % (Auto) [place] % (Auto) Eos % (Auto) Lymph # [place] # Eos # Seg Neutrophils % Seg Neuts % (Manual) Lymphocytes % (Manual) Monocytes % (Manual) Eosinophils % (Manual) Nucleated RBC % Seg Neutrophils # Seg Neutrophils # Man Lymphocytes # (Manual) Monocytes # (Manual) Eosinophils # (Manual) PT INR POC ABG pH POC ABG pCO2 POC ABG pO2 Sodium Potassium Chloride Carbon Dioxide BUN Creatinine Glucose POC Glucose 121 H 107 H Lactic Acid Calcium Phosphorus Magnesium AST ALT Alkaline Phosphatase Troponin T C-Reactive Protein Total Protein Albumin LDL Cholesterol Direct HDL Cholesterol Hepatitis C Antibody Crossmatch Crossmatch [facility] See Detail 12/17/17 12/17/17 12/17/17 05:08 05:08 12:03 WBC 12.9 H RBC 2.88 L Hgb 7.2 L Hct 22.6 L MCV 78 L MCH 25 L MCHC RDW 18.3 H Plt Count Lymph % (Auto) 8.0 L [place] % (Auto) 8.6 H Eos % (Auto) Lymph # 1.0 L [place] # 1.1 H Eos # Seg Neutrophils % 79.3 H Seg Neuts % (Manual) Lymphocytes % (Manual) Monocytes % (Manual) Eosinophils % (Manual) Nucleated RBC % Seg Neutrophils # 10.2 H Seg Neutrophils # Man Lymphocytes # (Manual) Monocytes # (Manual) Eosinophils # (Manual) PT INR POC ABG pH POC ABG pCO2 POC ABG pO2 Sodium Potassium 3.4 L D Chloride Carbon Dioxide BUN Creatinine Glucose 104 H POC Glucose 109 H Lactic Acid Calcium 7.6 L Phosphorus Magnesium 1.30 L AST ALT Alkaline Phosphatase 177 H Troponin T C-Reactive Protein Total Protein Albumin 2.0 L LDL Cholesterol Direct HDL Cholesterol Hepatitis C Antibody Crossmatch Crossmatch [facility] 12/17/17 12/18/17 12/18/17 23:40 00:50 00:50 WBC 22.6 H RBC 2.76 L Hgb 6.7 L Hct 21.6 L MCV 78 L MCH 24 L MCHC 31 L RDW 18.4 H Plt Count Lymph % (Auto) [place] % (Auto) Eos % (Auto) Lymph # [place] # Eos # Seg Neutrophils % Seg Neuts % (Manual) Lymphocytes % (Manual) Monocytes % (Manual) Eosinophils % (Manual) Nucleated RBC % Seg Neutrophils # Seg Neutrophils # Man Lymphocytes # (Manual) Monocytes # (Manual) Eosinophils # (Manual) PT INR POC ABG pH POC ABG pCO2 POC ABG pO2 Sodium Potassium Chloride Carbon Dioxide BUN 22 H Creatinine 1.6 H Glucose 113 H POC Glucose 120 H Lactic Acid Calcium 7.8 L Phosphorus Magnesium 1.50 L AST ALT Alkaline Phosphatase Troponin T C-Reactive Protein Total Protein Albumin LDL Cholesterol Direct HDL Cholesterol Hepatitis C Antibody Crossmatch Crossmatch [facility] 12/18/17 12/18/17 12/18/17 05:34 12:00 18:07 WBC RBC Hgb Hct MCV MCH MCHC RDW Plt Count Lymph % (Auto) [place] % (Auto) Eos % (Auto) Lymph # [place] # Eos # Seg Neutrophils % Seg Neuts % (Manual) Lymphocytes % (Manual) Monocytes % (Manual) Eosinophils % (Manual) Nucleated RBC % Seg Neutrophils # Seg Neutrophils # Man Lymphocytes # (Manual) Monocytes # (Manual) Eosinophils # (Manual) PT INR POC ABG pH POC ABG pCO2 POC ABG pO2 Sodium Potassium Chloride Carbon Dioxide BUN Creatinine Glucose POC Glucose 132 H 136 H 122 H Lactic Acid Calcium Phosphorus Magnesium AST ALT Alkaline Phosphatase Troponin T C-Reactive Protein Total Protein Albumin LDL Cholesterol Direct HDL Cholesterol Hepatitis C Antibody Crossmatch Crossmatch [facility] 12/19/17 12/19/17 12/19/17 00:24 00:24 05:17 WBC 15.4 H RBC 2.41 L Hgb 6.1 L Hct 19.0 L* MCV 79 L MCH 25 L MCHC RDW 18.5 H Plt Count Lymph % (Auto) [place] % (Auto) Eos % (Auto) Lymph # [place] # Eos # Seg Neutrophils % Seg Neuts % (Manual) Lymphocytes % (Manual) Monocytes % (Manual) Eosinophils % (Manual) Nucleated RBC % Seg Neutrophils # Seg Neutrophils # Man Lymphocytes # (Manual) Monocytes # (Manual) Eosinophils # (Manual) PT INR POC ABG pH POC ABG pCO2 POC ABG pO2 Sodium Potassium 3.2 L Chloride Carbon Dioxide BUN Creatinine Glucose 117 H POC Glucose 132 H Lactic Acid Calcium 8.2 L Phosphorus Magnesium 1.50 L AST ALT Alkaline Phosphatase Troponin T C-Reactive Protein Total Protein Albumin LDL Cholesterol Direct HDL Cholesterol Hepatitis C Antibody Crossmatch Crossmatch [facility] 12/19/17 12/19/17 12/19/17 09:00 09:00 18:01 WBC 12.4 H RBC 2.86 L Hgb 7.2 L Hct 22.6 L MCV 79 L MCH 25 L MCHC RDW 17.2 H Plt Count Lymph % (Auto) 6.8 L [place] % (Auto) 12.6 H Eos % (Auto) Lymph # 0.8 L [place] # 1.6 H Eos # Seg Neutrophils % 80.1 H Seg Neuts % (Manual) Lymphocytes % (Manual) Monocytes % (Manual) Eosinophils % (Manual) Nucleated RBC % Seg Neutrophils # 10.0 H Seg Neutrophils # Man Lymphocytes # (Manual) Monocytes # (Manual) Eosinophils # (Manual) PT INR POC ABG pH POC ABG pCO2 POC ABG pO2 Sodium Potassium 3.1 L Chloride Carbon Dioxide BUN 22 H Creatinine Glucose 113 H POC Glucose 117 H Lactic Acid Calcium 8.3 L Phosphorus Magnesium AST 54 H ALT Alkaline Phosphatase 204 H Troponin T C-Reactive Protein Total Protein 5.8 L Albumin 2.0 L LDL Cholesterol Direct HDL Cholesterol Hepatitis C Antibody Crossmatch Crossmatch [place] 12/19/17 12/20/17 12/20/17 23:49 05:53 19:00 WBC RBC 3.03 L Hgb 7.7 L Hct 23.7 L MCV 78 L MCH 25 L MCHC RDW 17.2 H Plt Count Lymph % (Auto) [place] % (Auto) Eos % (Auto) Lymph # [place] # Eos # Seg Neutrophils % Seg Neuts % (Manual) 74.0 H Lymphocytes % (Manual) 6.0 L Monocytes % (Manual) 17.0 H Eosinophils % (Manual) Nucleated RBC % Seg Neutrophils # Seg Neutrophils # Man Lymphocytes # (Manual) 0.5 L Monocytes # (Manual) 1.5 H Eosinophils # (Manual) PT INR POC ABG pH POC ABG pCO2 POC ABG pO2 Sodium Potassium Chloride Carbon Dioxide BUN Creatinine Glucose POC Glucose 125 H 124 H Lactic Acid Calcium Phosphorus Magnesium AST ALT Alkaline Phosphatase Troponin T C-Reactive Protein Total Protein Albumin LDL Cholesterol Direct HDL Cholesterol Hepatitis C Antibody Crossmatch Crossmatch [place] 12/20/17 19:00 WBC RBC Hgb Hct MCV MCH MCHC RDW Plt Count Lymph % (Auto) [place] % (Auto) Eos % (Auto) Lymph # [place] # Eos # Seg Neutrophils % Seg Neuts % (Manual) Lymphocytes % (Manual) Monocytes % (Manual) Eosinophils % (Manual) Nucleated RBC % Seg Neutrophils # Seg Neutrophils # Man Lymphocytes # (Manual) Monocytes # (Manual) Eosinophils # (Manual) PT INR POC ABG pH POC ABG pCO2 POC ABG pO2 Sodium Potassium 3.3 L Chloride Carbon Dioxide BUN 37 H Creatinine Glucose POC Glucose Lactic Acid Calcium 8.3 L Phosphorus 1.60 L Magnesium 1.50 L AST ALT Alkaline Phosphatase Troponin T C-Reactive Protein Total Protein Albumin LDL Cholesterol Direct HDL Cholesterol Hepatitis C Antibody Crossmatch Crossmatch [place] Chest x-ray: report reviewed, image reviewed
[2017-12-22 05:53] LABS: Hematocrit 24.3 % (35.5-45.6); Hemoglobin 7.7 gm/dl (11.8-15.2); Mean Corpuscular HGB Conc 32 % (32-34); Mean Corpuscular Volume 79 fl (84-94); Platelet Count 205 K/mm3 (140-440); Red Blood Count 3.09 M/mm3 (3.65-5.03); Red Cell Distribution Width 17.8 % (13.2-15.2)
[2017-12-22 06:01] LABS: Mean Corpuscular Hemoglobin 25 pg (28-32)
[2017-12-22 06:05] LABS: BUN/Creatinine Ratio 43; Blood Urea Nitrogen 43 mg/dL (9-20); Calcium 7.8 mg/dL (8.4-10.2); Hemolysis Index 2
[2017-12-22] MEDS ORDERED: POTASSIUM CHLORIDE FEEDTUBE NR (07:30)
[2017-12-22] MEDS: DIFLUCAN FEEDTUBE SCH (10:07)
[2017-12-22] MEDS: LOPRESSOR PO SCH ×2 (10:07→22:20)
[2017-12-22] MEDS: PREVACID SOLUTAB FEEDTUBE SCH ×2 (10:07→22:20)
[2017-12-22] MEDS: MERREM 1,000 MG in NACL 0.9% 100 ML IV SCH (10:07)
[2017-12-22] MEDS ORDERED: MAGNESIUM SULFATE 2GM/50ML 2 GM/50 ML BAG IV ONE (10:45)
--- NOTE | 2017-12-22 10:45 | Progress Note ---
Assessment and Plan Assessment * Acute kidney injury secondary to ATN --Intermittent HD started on 11/23/17 * Sepsis secondary to peritonitis/PEG malpositioning --RUQ/LUQ drains: Enterobacter, Heather (non albicans) * Aspiration pneumonitis related to above * Anemia * Acute CVA * Carotid artery disease s/p CEA * Encephalopathy Plan: * some evidence of renal recovery * hold HD MWF. and follow up 24hr crcl * replete k and mag today * Abx per ID * prbcs prn * Strict I/O * Avoid potential nephrptoxins * Dose medications for renal function * Replete lytes prn * Avoid nephrotoxins Subjective Date of service: 12/22/17 Principal diagnosis: Acute hypoxic respiratory failure, s/p Trach Interval history: new consult noted, last seen 11/09 with normal renal function Objective - Exam Narrative Exam: Constitutional: lethargic, other (intubated) Eyes: non-icteric ENT: oropharynx moist, other (ETT at 24 cm) Neck: supple, no JVD Ascultation: Bilateral: rhonchi (bilateral LT >>RT) Cardiovascular: regular rate and rhythm, other (tachycardic) Gastrointestinal: normoactive bowel sounds, non-distended Integumentary: normal Extremities: no cyanosis, no edema, other (RT femoral line in place) Neurologic: unable to assess (opens eyes spontaneously but does not follow commands . ) - Vital Signs Vital signs: Vital Signs - 12hr 12/21/17 12/21/17 12/21/17 22:45 23:00 23:03 Temperature Pulse Rate 106 H 103 H 107 H Pulse Rate [ Left Radial] Pulse Rate [ Right From Monitor] Respiratory 25 H 23 25 H Rate Blood Pressure 164/92 159/91 159/91 O2 Sat by Pulse 100 98 100 Oximetry O2 Sat by Pulse Oximetry [ Assessment] 12/21/17 12/21/17 12/21/17 23:15 23:31 23:45 Temperature Pulse Rate 105 H 105 H 105 H Pulse Rate [ Left Radial] Pulse Rate [ Right From Monitor] Respiratory 24 27 H 26 H Rate Blood Pressure 164/92 164/92 159/91 O2 Sat by Pulse 100 100 100 Oximetry O2 Sat by Pulse Oximetry [ Assessment] 12/22/17 12/22/17 12/22/17 00:00 00:15 00:31 Temperature 99.4 F Pulse Rate 131 H 109 H 110 H Pulse Rate [ 110 H Left Radial] Pulse Rate [ 109 H Right From Monitor] Respiratory 29 H 21 16 Rate Blood Pressure 150/91 150/91 150/91 O2 Sat by Pulse 96 100 100 Oximetry O2 Sat by Pulse Oximetry [ Assessment] 12/22/17 12/22/17 12/22/17 00:45 01:01 01:15 Temperature Pulse Rate 107 H 114 H 102 H Pulse Rate [ Left Radial] Pulse Rate [ Right From Monitor] Respiratory 20 22 29 H Rate Blood Pressure 150/91 150/91 142/83 O2 Sat by Pulse 100 100 100 Oximetry O2 Sat by Pulse Oximetry [ Assessment] 12/22/17 12/22/17 12/22/17 01:31 01:45 02:00 Temperature Pulse Rate 97 H 101 H 97 H Pulse Rate [ Left Radial] Pulse Rate [ Right From Monitor] Respiratory 26 H 22 29 H Rate Blood Pressure 142/83 142/83 142/83 O2 Sat by Pulse 100 100 100 Oximetry O2 Sat by Pulse Oximetry [ Assessment] 12/22/17 12/22/17 12/22/17 02:15 02:31 02:45 Temperature Pulse Rate 96 H 158 H 103 H Pulse Rate [ Left Radial] Pulse Rate [ Right From Monitor] Respiratory 25 H 24 23 Rate Blood Pressure 147/87 147/87 147/87 O2 Sat by Pulse 99 100 100 Oximetry O2 Sat by Pulse Oximetry [ Assessment] 12/22/17 12/22/17 12/22/17 03:00 03:15 03:31 Temperature Pulse Rate 99 H 103 H 102 H Pulse Rate [ Left Radial] Pulse Rate [ Right From Monitor] Respiratory 16 21 28 H Rate Blood Pressure 157/137 157/137 157/137 O2 Sat by Pulse 99 100 99 Oximetry O2 Sat by Pulse Oximetry [ Assessment] 12/22/17 12/22/17 12/22/17 04:00 05:01 05:03 Temperature 97 F L Pulse Rate 97 H 105 H Pulse Rate [ 96 H Left Radial] Pulse Rate [ 100 H Right From Monitor] Respiratory 20 30 H Rate Blood Pressure 157/92 161/90 O2 Sat by Pulse 98 98 Oximetry O2 Sat by Pulse 100 Oximetry [ Assessment] 12/22/17 12/22/17 12/22/17 06:00 07:00 08:00 Temperature 98.5 F Pulse Rate 102 H 99 H 100 H Pulse Rate [ 96 H Left Radial] Pulse Rate [ 89 Right From Monitor] Respiratory 25 H 25 H 22 Rate Blood Pressure 162/91 149/87 151/89 O2 Sat by Pulse 97 98 96 Oximetry O2 Sat by Pulse Oximetry [ Assessment] 12/22/17 12/22/17 12/22/17 09:00 10:00 10:07 Temperature Pulse Rate 95 H 107 H 109 H Pulse Rate [ Left Radial] Pulse Rate [ Right From Monitor] Respiratory 24 28 H Rate Blood Pressure 160/86 160/86 160/95 O2 Sat by Pulse 98 99 Oximetry O2 Sat by Pulse Oximetry [ Assessment] - Lab 12/22/17 05:07 12/22/17 05:07 Most recent lab results Calcium 7.8 mg/dL (8.4-10.2) L 12/22/17 05:07 Phosphorus 1.60 mg/dL (2.5-4.5) L 12/20/17 19:00 Magnesium 1.60 mg/dL (1.7-2.3) L 12/22/17 05:07
[2017-12-22] MEDS: KCL 10MEQ/100ML 10 MEQ/100 ML BAG IV SCH ×2 (12:11→13:20)
[2017-12-22 12:23] LABS: Creatinine 24 Hour,Urine 0.8 (0.8-2.8); Creatinine,Urine 55.8 mg/dL (0.1-20.0)
--- NOTE | 2017-12-22 14:42 | Progress Note ---
Assessment and Plan Imp: 1. CVA 2. Hemiparesis 3. Aspiration pneumonitis related to above 4. Sepsis 2/2 peritonitis/PEG mal-position, better 5. DARYA 6. s/p Trach/PEG Rec: 1. Holding HD per renal; K repletion per renal 2. ABX per ID -> Merrem/Diflucan 3. Abdominal drains as per surgery/IR 4. SCDs; GI PPx 5. Cont. Tpiece as tolerated; trach will need to be permanent for secretion clearance 6. Pulm status stable 7. Insurance denies LTAC coverage Long-term prognosis poor; no family present Subjective Date of service: 12/22/17 Principal diagnosis: Acute hypoxic respiratory failure, s/p Trach Interval history: Awake, alert. On 28% Tpiece and tolerating well. Unable to give history. Active Medications Albumin Human (Alburx 25% (Albumin)) 25 gm IV TIM PRN PRN Reason: Hypotension Last Admin: 12/18/17 12:13 Dose: 25 gm Lipase/Protease/Amylase (Pancrealexise Dr 10,500 Unit) 1 each FEEDTUBE PRN PRN PRN Reason: For Clogged Feeding Tube Dextrose (D50w (25gm) Syringe) 50 ml IV PRN PRN PRN Reason: Hypoglycemia Fluconazole (Diflucan) 200 mg FEEDTUBE QDAY OSIRIS Stop: 12/23/17 20:00 Last Admin: 12/22/17 10:07 Dose: 200 mg Hydralazine HCl (Apresoline) 5 mg IV Q6HR PRN PRN Reason: Hypertension Last Admin: 12/17/17 04:14 Dose: 5 mg Hydromorphone HCl (Dilaudid) 1 mg IV Q3H PRN PRN Reason: Pain , Severe (7-10) Last Admin: 12/21/17 00:04 Dose: 1 mg Meropenem 1,000 mg/ Sodium (Chloride) 100 mls @ 100 mls/hr IV Q24HR OSIRIS Stop: 12/23/17 23:59 Last Admin: 12/22/17 10:07 Dose: 100 mls/hr Sodium Chloride (Nacl 0.9%) 100 mls @ 999 mls/hr IV TIM PRN PRN Reason: Hypotension Sodium Chloride (Nacl 0.9%) 100 mls @ 999 mls/hr IV TIM PRN PRN Reason: Hypotension Lansoprazole (Prevacid Solutab) 30 mg FEEDTUBE BID [facility] Last Admin: 12/22/17 10:07 Dose: 30 mg Metoprolol Tartrate (Lopressor) 25 mg PO BID [facility] Last Admin: 12/22/17 10:07 Dose: 25 mg Ondansetron HCl (Zofran) 4 mg IV Q3H PRN PRN Reason: Nausea And Vomiting Last Admin: 12/17/17 20:46 Dose: 4 mg Simple Syrup (Simple Syrup) 15 ml FEEDTUBE PRN PRN PRN Reason: Hypoglycemia Simple Syrup (Simple Syrup) 30 ml FEEDTUBE PRN PRN PRN Reason: Hypoglycemia Sodium Bicarbonate (Sodium Bicarbonate) 325 mg FEEDTUBE PRN PRN PRN Reason: For Clogged Feeding Tube Objective Vital Signs - 12hr 12/22/17 12/22/17 12/22/17 02:45 03:00 03:15 Temperature Pulse Rate 103 H 99 H 103 H Pulse Rate [ Left Radial] Pulse Rate [ Right From Monitor] Respiratory 23 16 21 Rate Blood Pressure 147/87 157/137 157/137 O2 Sat by Pulse 100 99 100 Oximetry O2 Sat by Pulse Oximetry [ Assessment] 12/22/17 12/22/17 12/22/17 03:31 04:00 05:01 Temperature 97 F L Pulse Rate 102 H 97 H 105 H Pulse Rate [ 96 H Left Radial] Pulse Rate [ 100 H Right From Monitor] Respiratory 28 H 20 30 H Rate Blood Pressure 157/137 157/92 161/90 O2 Sat by Pulse 99 98 98 Oximetry O2 Sat by Pulse Oximetry [ Assessment] 12/22/17 12/22/17 12/22/17 05:03 06:00 07:00 Temperature Pulse Rate 102 H 99 H Pulse Rate [ Left Radial] Pulse Rate [ Right From Monitor] Respiratory 25 H 25 H Rate Blood Pressure 162/91 149/87 O2 Sat by Pulse 97 98 Oximetry O2 Sat by Pulse 100 Oximetry [ Assessment] 12/22/17 12/22/17 12/22/17 08:00 09:00 10:00 Temperature 98.5 F Pulse Rate 100 H 95 H 107 H Pulse Rate [ 96 H Left Radial] Pulse Rate [ 89 Right From Monitor] Respiratory 22 24 28 H Rate Blood Pressure 151/89 160/86 160/86 O2 Sat by Pulse 96 98 99 Oximetry O2 Sat by Pulse Oximetry [ Assessment] 12/22/17 12/22/17 10:07 12:00 Temperature 98.6 F Pulse Rate 109 H Pulse Rate [ Left Radial] Pulse Rate [ Right From Monitor] Respiratory Rate Blood Pressure 160/95 O2 Sat by Pulse Oximetry O2 Sat by Pulse Oximetry [ Assessment] Constitutional: no acute distress, alert Eyes: non-icteric ENT: oropharynx moist Neck: supple (trach in position) Effort: normal Ascultation: Bilateral: clear Cardiovascular: regular rate and rhythm Gastrointestinal: normoactive bowel sounds, soft, non-tender, other (drains in place) Integumentary: normal Extremities: no cyanosis, pink and warm, edema (2+ bilateral LE edema) Neurologic: other (L hemiparesis,awake, response to my voice) Psychiatric: other (unable to assess) CBC and BMP: 12/22/17 05:07 12/22/17 05:07 ABG, PT/INR, D-dimer: ABG POC ABG pH 7.505 (7.35-7.45) H 11/23/17 04:56 POC ABG pCO2 26.3 (35-45) L 11/23/17 04:56 POC ABG pO2 100 (80-105) 11/23/17 04:56 POC ABG HCO3 20.8 11/23/17 04:56 POC ABG Total CO2 22 11/23/17 04:56 POC ABG O2 Sat 98 11/23/17 04:56 PT/INR, D-dimer PT 15.4 Sec. (12.2-14.9) H 12/14/17 05:11 INR 1.17 (0.87-1.13) H 12/14/17 05:11 Abnormal lab findings: Abnormal Labs 11/11/17 11/11/17 11/11/17 23:18 23:20 23:20 WBC RBC Hgb 10.4 L Hct 32.6 L D MCV MCH 27 L MCHC RDW 17.4 H Plt Count 105 L Lymph % (Auto) Cottle % (Auto) Eos % (Auto) Lymph # Cottle # Eos # Seg Neutrophils % Seg Neuts % (Manual) Lymphocytes % (Manual) 8.0 L Monocytes % (Manual) Eosinophils % (Manual) Nucleated RBC % 1.0 H Seg Neutrophils # Seg Neutrophils # Man Lymphocytes # (Manual) 0.7 L Monocytes # (Manual) Eosinophils # (Manual) PT INR POC ABG pH 7.550 H POC ABG pCO2 31.6 L POC ABG pO2 Sodium 146 H Potassium Chloride Carbon Dioxide BUN 26 H Creatinine 1.7 H D Glucose 133 H POC Glucose Lactic Acid Calcium Phosphorus Magnesium AST ALT Alkaline Phosphatase Troponin T 0.117 H* C-Reactive Protein Total Protein Albumin 2.5 L LDL Cholesterol Direct 42 L HDL Cholesterol 24 L Urine Creatinine Hepatitis C Antibody Crossmatch Crossmatch P[place]armed 11/11/17 11/12/17 11/12/17 23:20 00:23 00:23 WBC RBC Hgb Hct MCV MCH MCHC RDW Plt Count Lymph % (Auto) Cottle % (Auto) Eos % (Auto) Lymph # [place]le # Eos # Seg Neutrophils % Seg Neuts % (Manual) Lymphocytes % (Manual) Monocytes % (Manual) Eosinophils % (Manual) Nucleated RBC % Seg Neutrophils # Seg Neutrophils # Man Lymphocytes # (Manual) Monocytes # (Manual) Eosinophils # (Manual) PT 16.7 H INR 1.28 H POC ABG pH POC ABG pCO2 POC ABG pO2 Sodium Potassium Chloride Carbon Dioxide BUN Creatinine Glucose POC Glucose Lactic Acid 3.20 H* Calcium Phosphorus Magnesium AST ALT Alkaline Phosphatase Troponin T C-Reactive Protein 25.70 H Total Protein Albumin LDL Cholesterol Direct HDL Cholesterol Urine Creatinine Hepatitis C Antibody Crossmatch Crossmatch P[place]armed 11/12/17 11/12/17 11/12/17 00:46 01:27 01:27 WBC RBC Hgb Hct MCV MCH MCHC RDW Plt Count Lymph % (Auto) Cottle % (Auto) Eos % (Auto) Lymph # [place]le # Eos # Seg Neutrophils % Seg Neuts % (Manual) Lymphocytes % (Manual) Monocytes % (Manual) Eosinophils % (Manual) Nucleated RBC % Seg Neutrophils # Seg Neutrophils # Man Lymphocytes # (Manual) Monocytes # (Manual) Eosinophils # (Manual) PT INR POC ABG pH 7.495 H POC ABG pCO2 32.0 L POC ABG pO2 64 L Sodium Potassium Chloride Carbon Dioxide BUN Creatinine Glucose POC Glucose Lactic Acid 3.70 H* Calcium Phosphorus Magnesium AST ALT Alkaline Phosphatase Troponin T 0.096 H C-Reactive Protein Total Protein Albumin LDL Cholesterol Direct HDL Cholesterol Urine Creatinine Hepatitis C Antibody Crossmatch Crossmatch P[place]armed 11/12/17 11/12/17 11/12/17 03:21 04:50 06:27 WBC RBC Hgb Hct MCV MCH MCHC RDW Plt Count Lymph % (Auto) Cottle % (Auto) Eos % (Auto) Lymph # [place] # Eos # Seg Neutrophils % Seg Neuts % (Manual) Lymphocytes % (Manual) Monocytes % (Manual) Eosinophils % (Manual) Nucleated RBC % Seg Neutrophils # Seg Neutrophils # Man Lymphocytes # (Manual) Monocytes # (Manual) Eosinophils # (Manual) PT INR POC ABG pH POC ABG pCO2 POC ABG pO2 109 H Sodium Potassium Chloride Carbon Dioxide BUN Creatinine Glucose POC Glucose Lactic Acid 3.80 H* 2.20 H* Calcium Phosphorus Magnesium AST ALT Alkaline Phosphatase Troponin T C-Reactive Protein Total Protein Albumin LDL Cholesterol Direct HDL Cholesterol Urine Creatinine Hepatitis C Antibody Crossmatch Crossmatch P[place]armed 11/12/17 11/12/17 11/12/17 09:24 09:24 09:24 WBC RBC Hgb 10.4 L Hct 33.4 L MCV MCH MCHC RDW Plt Count Lymph % (Auto) Cottle % (Auto) Eos % (Auto) Lymph # [place] # Eos # Seg Neutrophils % Seg Neuts % (Manual) Lymphocytes % (Manual) Monocytes % (Manual) Eosinophils % (Manual) Nucleated RBC % Seg Neutrophils # Seg Neutrophils # Man Lymphocytes # (Manual) Monocytes # (Manual) Eosinophils # (Manual) PT INR POC ABG pH POC ABG pCO2 POC ABG pO2 Sodium Potassium Chloride Carbon Dioxide BUN Creatinine Glucose POC Glucose Lactic Acid 2.90 H* Calcium Phosphorus Magnesium AST ALT Alkaline Phosphatase Troponin T 0.091 H C-Reactive Protein Total Protein Albumin LDL Cholesterol Direct HDL Cholesterol Urine Creatinine Hepatitis C Antibody Crossmatch Crossmatch P[place]armed 11/12/17 11/12/17 11/12/17 12:56 20:03 Unknown WBC RBC Hgb Hct MCV MCH MCHC RDW Plt Count Lymph % (Auto) [place]le % (Auto) Eos % (Auto) Lymph # [place] # Eos # Seg Neutrophils % Seg Neuts % (Manual) Lymphocytes % (Manual) Monocytes % (Manual) Eosinophils % (Manual) Nucleated RBC % Seg Neutrophils # Seg Neutrophils # Man Lymphocytes # (Manual) Monocytes # (Manual) Eosinophils # (Manual) PT INR POC ABG pH POC ABG pCO2 POC ABG pO2 Sodium Potassium Chloride Carbon Dioxide BUN Creatinine Glucose POC Glucose Lactic Acid 3.60 H* Calcium Phosphorus Magnesium AST ALT Alkaline Phosphatase Troponin T 0.102 H* 0.156 H* D C-Reactive Protein Total Protein Albumin LDL Cholesterol Direct HDL Cholesterol Urine Creatinine Hepatitis C Antibody Crossmatch Crossmatch P[place]armed 11/12/17 11/13/17 11/13/17 Unknown 04:50 04:50 WBC 12.2 H RBC 3.51 L Hgb 9.3 L Hct 30.1 L MCV MCH 26 L MCHC 31 L RDW 18.0 H Plt Count 128 L Lymph % (Auto) 8.6 L [place]le % (Auto) 11.1 H Eos % (Auto) Lymph # 1.1 L [place]le # 1.4 H Eos # Seg Neutrophils % 80.1 H Seg Neuts % (Manual) Lymphocytes % (Manual) Monocytes % (Manual) Eosinophils % (Manual) Nucleated RBC % Seg Neutrophils # 9.8 H Seg Neutrophils # Man Lymphocytes # (Manual) Monocytes # (Manual) Eosinophils # (Manual) PT INR POC ABG pH POC ABG pCO2 POC ABG pO2 Sodium 149 H Potassium 5.1 H Chloride 114.4 H Carbon Dioxide 18 L BUN 52 H Creatinine 3.3 H D Glucose 129 H POC Glucose Lactic Acid Calcium 7.9 L Phosphorus Magnesium AST ALT Alkaline Phosphatase Troponin T 0.098 H C-Reactive Protein Total Protein Albumin LDL Cholesterol Direct HDL Cholesterol Urine Creatinine Hepatitis C Antibody Crossmatch Crossmatch P[place]armed 11/13/17 11/13/17 11/14/17 04:51 09:34 04:21 WBC RBC Hgb Hct MCV MCH MCHC RDW Plt Count Lymph % (Auto) Cottle % (Auto) Eos % (Auto) Lymph # [place]le # Eos # Seg Neutrophils % Seg Neuts % (Manual) Lymphocytes % (Manual) Monocytes % (Manual) Eosinophils % (Manual) Nucleated RBC % Seg Neutrophils # Seg Neutrophils # Man Lymphocytes # (Manual) Monocytes # (Manual) Eosinophils # (Manual) PT INR POC ABG pH POC ABG pCO2 30.1 L 29.8 L POC ABG pO2 135 H Sodium Potassium Chloride Carbon Dioxide BUN Creatinine Glucose POC Glucose Lactic Acid 2.10 H* Calcium Phosphorus Magnesium AST ALT Alkaline Phosphatase Troponin T C-Reactive Protein Total Protein Albumin LDL Cholesterol Direct HDL Cholesterol Urine Creatinine Hepatitis C Antibody Crossmatch Crossmatch P[place]armed 11/15/17 11/15/17 11/16/17 04:52 15:50 05:17 WBC RBC Hgb Hct MCV MCH MCHC RDW Plt Count Lymph % (Auto) Cottle % (Auto) Eos % (Auto) Lymph # [place]le # Eos # Seg Neutrophils % Seg Neuts % (Manual) Lymphocytes % (Manual) Monocytes % (Manual) Eosinophils % (Manual) Nucleated RBC % Seg Neutrophils # Seg Neutrophils # Man Lymphocytes # (Manual) Monocytes # (Manual) Eosinophils # (Manual) PT INR POC ABG pH POC ABG pCO2 29.5 L 31.5 L POC ABG pO2 115 H 122 H Sodium 154 H Potassium Chloride 117.9 H Carbon Dioxide 19 L BUN 87 H Creatinine 4.1 H Glucose POC Glucose Lactic Acid Calcium 8.1 L Phosphorus Magnesium AST ALT Alkaline Phosphatase Troponin T C-Reactive Protein Total Protein Albumin LDL Cholesterol Direct HDL Cholesterol Urine Creatinine Hepatitis C Antibody Crossmatch Crossmatch P[place]armed 11/16/17 11/17/17 11/17/17 16:37 04:07 10:00 WBC 14.7 H RBC 3.23 L Hgb 8.3 L Hct 28.1 L MCV MCH 26 L MCHC 30 L RDW 18.8 H Plt Count Lymph % (Auto) [place]le % (Auto) Eos % (Auto) Lymph # [place]le # Eos # Seg Neutrophils % Seg Neuts % (Manual) 75 H Lymphocytes % (Manual) 8.0 L Monocytes % (Manual) Eosinophils % (Manual) Nucleated RBC % 1.0 H Seg Neutrophils # Seg Neutrophils # Man 11.0 H Lymphocytes # (Manual) Monocytes # (Manual) 0.9 H Eosinophils # (Manual) PT INR POC ABG pH POC ABG pCO2 POC ABG pO2 Sodium 153 H 155 H Potassium Chloride 117.3 H 119.4 H Carbon Dioxide 19 L 20 L BUN 90 H 89 H Creatinine 3.9 H 3.6 H Glucose 111 H 115 H POC Glucose Lactic Acid Calcium 8.1 L 8.0 L Phosphorus Magnesium AST ALT Alkaline Phosphatase Troponin T C-Reactive Protein Total Protein Albumin LDL Cholesterol Direct HDL Cholesterol Urine Creatinine Hepatitis C Antibody Crossmatch Crossmatch P[place]armed 11/18/17 11/18/17 11/18/17 04:34 04:34 04:34 WBC 15.5 H RBC 3.13 L Hgb 8.1 L Hct 26.3 L MCV MCH 26 L MCHC 31 L RDW 18.6 H Plt Count Lymph % (Auto) [place]le % (Auto) Eos % (Auto) Lymph # [place]le # Eos # Seg Neutrophils % Seg Neuts % (Manual) 81.0 H Lymphocytes % (Manual) 7.0 L Monocytes % (Manual) Eosinophils % (Manual) Nucleated RBC % 1.0 H Seg Neutrophils # Seg Neutrophils # Man 12.6 H Lymphocytes # (Manual) 1.1 L Monocytes # (Manual) Eosinophils # (Manual) PT 16.7 H INR 1.30 H POC ABG pH POC ABG pCO2 POC ABG pO2 Sodium 155 H Potassium 3.2 L Chloride 121.0 H Carbon Dioxide 20 L BUN 74 H Creatinine 2.9 H Glucose 126 H POC Glucose Lactic Acid Calcium 7.9 L Phosphorus Magnesium AST ALT Alkaline Phosphatase Troponin T C-Reactive Protein Total Protein Albumin LDL Cholesterol Direct HDL Cholesterol Urine Creatinine Hepatitis C Antibody Crossmatch Crossmatch P[place]armed 11/19/17 11/19/17 11/20/17 04:44 04:44 00:38 WBC 19.0 H 22.2 H RBC 3.20 L 3.17 L Hgb 8.4 L 7.9 L Hct 27.9 L 26.4 L MCV 83 L MCH 26 L 25 L MCHC 30 L 30 L RDW 19.1 H 18.9 H Plt Count Lymph % (Auto) Cottle % (Auto) Eos % (Auto) Lymph # [place]le # Eos # Seg Neutrophils % Seg Neuts % (Manual) 83.0 H Lymphocytes % (Manual) 3.0 L Monocytes % (Manual) 9.0 H Eosinophils % (Manual) Nucleated RBC % Seg Neutrophils # Seg Neutrophils # Man 18.4 H Lymphocytes # (Manual) 0.7 L Monocytes # (Manual) 2.0 H Eosinophils # (Manual) PT INR POC ABG pH POC ABG pCO2 POC ABG pO2 Sodium 152 H Potassium Chloride 117.1 H Carbon Dioxide 17 L BUN 66 H Creatinine 2.8 H Glucose 119 H POC Glucose Lactic Acid Calcium 7.8 L Phosphorus Magnesium 2.70 H AST ALT Alkaline Phosphatase Troponin T C-Reactive Protein Total Protein Albumin LDL Cholesterol Direct HDL Cholesterol Urine Creatinine Hepatitis C Antibody Crossmatch Crossmatch P[place]armed 11/20/17 11/20/17 11/20/17 03:29 04:48 13:38 WBC RBC Hgb Hct MCV MCH MCHC RDW Plt Count Lymph % (Auto) Cottle % (Auto) Eos % (Auto) Lymph # [place]le # Eos # Seg Neutrophils % Seg Neuts % (Manual) Lymphocytes % (Manual) Monocytes % (Manual) Eosinophils % (Manual) Nucleated RBC % Seg Neutrophils # Seg Neutrophils # Man Lymphocytes # (Manual) Monocytes # (Manual) Eosinophils # (Manual) PT INR POC ABG pH POC ABG pCO2 29.4 L POC ABG pO2 Sodium 148 H Potassium 3.4 L Chloride 113.7 H Carbon Dioxide 18 L BUN 59 H Creatinine 2.7 H Glucose 113 H POC Glucose 128 H Lactic Acid Calcium 7.8 L Phosphorus Magnesium AST ALT Alkaline Phosphatase Troponin T C-Reactive Protein Total Protein Albumin LDL Cholesterol Direct HDL Cholesterol Urine Creatinine Hepatitis C Antibody Crossmatch Crossmatch P[place]armed 11/20/17 11/20/17 11/21/17 17:38 23:40 00:13 WBC RBC Hgb 8.4 L Hct 28.0 L MCV MCH MCHC RDW Plt Count Lymph % (Auto) Cottle % (Auto) Eos % (Auto) Lymph # [place]le # Eos # Seg Neutrophils % Seg Neuts % (Manual) Lymphocytes % (Manual) Monocytes % (Manual) Eosinophils % (Manual) Nucleated RBC % Seg Neutrophils # Seg Neutrophils # Man Lymphocytes # (Manual) Monocytes # (Manual) Eosinophils # (Manual) PT INR POC ABG pH POC ABG pCO2 POC ABG pO2 Sodium Potassium Chloride Carbon Dioxide BUN Creatinine Glucose POC Glucose 115 H 145 H Lactic Acid Calcium Phosphorus Magnesium AST ALT Alkaline Phosphatase Troponin T C-Reactive Protein Total Protein Albumin LDL Cholesterol Direct HDL Cholesterol Urine Creatinine Hepatitis C Antibody Crossmatch Crossmatch P[place]armed 11/21/17 11/21/17 11/21/17 04:30 04:30 04:58 WBC 21.0 H RBC Hgb 9.6 L Hct 32.7 L MCV MCH 25 L MCHC 29 L RDW 19.7 H Plt Count 746 H Lymph % (Auto) Cottle % (Auto) Eos % (Auto) Lymph # [place] # Eos # Seg Neutrophils % Seg Neuts % (Manual) Lymphocytes % (Manual) Monocytes % (Manual) Eosinophils % (Manual) Nucleated RBC % Seg Neutrophils # Seg Neutrophils # Man Lymphocytes # (Manual) Monocytes # (Manual) Eosinophils # (Manual) PT INR POC ABG pH POC ABG pCO2 POC ABG pO2 Sodium Potassium Chloride 109.4 H Carbon Dioxide 14 L BUN 59 H Creatinine 3.0 H Glucose 137 H POC Glucose 132 H Lactic Acid Calcium 7.6 L Phosphorus Magnesium AST ALT Alkaline Phosphatase Troponin T C-Reactive Protein Total Protein Albumin LDL Cholesterol Direct HDL Cholesterol Urine Creatinine Hepatitis C Antibody Crossmatch Crossmatch [place]armed 11/21/17 11/21/17 11/21/17 06:30 13:43 14:17 WBC 38.2 H RBC Hgb 9.0 L Hct 32.3 L MCV MCH 25 L MCHC 28 L RDW 20.0 H Plt Count 766 H Lymph % (Auto) Cottle % (Auto) Eos % (Auto) Lymph # [place]le # Eos # Seg Neutrophils % Seg Neuts % (Manual) 85.0 H Lymphocytes % (Manual) 1.0 L Monocytes % (Manual) Eosinophils % (Manual) Nucleated RBC % 2.0 H Seg Neutrophils # Seg Neutrophils # Man 32.5 H Lymphocytes # (Manual) 0.4 L Monocytes # (Manual) 2.3 H Eosinophils # (Manual) PT INR POC ABG pH POC ABG pCO2 18.6 L POC ABG pO2 121 H Sodium 146 H Potassium Chloride 110.9 H Carbon Dioxide 11 L BUN 62 H Creatinine 4.0 H Glucose 64 L POC Glucose Lactic Acid Calcium 7.6 L Phosphorus Magnesium AST ALT Alkaline Phosphatase Troponin T C-Reactive Protein Total Protein Albumin LDL Cholesterol Direct HDL Cholesterol Urine Creatinine Hepatitis C Antibody Crossmatch Crossmatch [place]armed 11/21/17 11/21/17 11/22/17 14:17 19:09 00:05 WBC RBC Hgb Hct MCV MCH MCHC RDW Plt Count Lymph % (Auto) Cottle % (Auto) Eos % (Auto) Lymph # [place]le # Eos # Seg Neutrophils % Seg Neuts % (Manual) Lymphocytes % (Manual) Monocytes % (Manual) Eosinophils % (Manual) Nucleated RBC % Seg Neutrophils # Seg Neutrophils # Man Lymphocytes # (Manual) Monocytes # (Manual) Eosinophils # (Manual) PT INR POC ABG pH POC ABG pCO2 20.0 L POC ABG pO2 Sodium Potassium Chloride Carbon Dioxide BUN Creatinine Glucose POC Glucose 127 H Lactic Acid 7.70 H* Calcium Phosphorus Magnesium AST ALT Alkaline Phosphatase Troponin T C-Reactive Protein Total Protein Albumin LDL Cholesterol Direct HDL Cholesterol Urine Creatinine Hepatitis C Antibody Crossmatch Crossmatch [place] 11/22/17 11/22/17 11/22/17 03:53 06:00 07:25 WBC RBC Hgb Hct MCV MCH MCHC RDW Plt Count Lymph % (Auto) Cottle % (Auto) Eos % (Auto) Lymph # [place]le # Eos # Seg Neutrophils % Seg Neuts % (Manual) Lymphocytes % (Manual) Monocytes % (Manual) Eosinophils % (Manual) Nucleated RBC % Seg Neutrophils # Seg Neutrophils # Man Lymphocytes # (Manual) Monocytes # (Manual) Eosinophils # (Manual) PT INR POC ABG pH POC ABG pCO2 22.2 L POC ABG pO2 Sodium 147 H Potassium Chloride 111.9 H Carbon Dioxide 16 L BUN 72 H Creatinine 5.1 H Glucose 181 H POC Glucose 180 H Lactic Acid Calcium 7.1 L Phosphorus Magnesium AST ALT Alkaline Phosphatase Troponin T C-Reactive Protein Total Protein Albumin LDL Cholesterol Direct HDL Cholesterol Urine Creatinine Hepatitis C Antibody Crossmatch Crossmatch [place] 11/22/17 11/22/17 11/22/17 07:25 07:25 12:05 WBC 31.4 H RBC 3.22 L Hgb 8.0 L Hct 26.7 L MCV 83 L MCH 25 L MCHC 30 L RDW 19.4 H Plt Count 602 H Lymph % (Auto) Cottle % (Auto) Eos % (Auto) Lymph # [place]le # Eos # Seg Neutrophils % Seg Neuts % (Manual) Lymphocytes % (Manual) Monocytes % (Manual) Eosinophils % (Manual) Nucleated RBC % Seg Neutrophils # Seg Neutrophils # Man Lymphocytes # (Manual) Monocytes # (Manual) Eosinophils # (Manual) PT INR POC ABG pH POC ABG pCO2 POC ABG pO2 Sodium Potassium Chloride Carbon Dioxide BUN Creatinine Glucose POC Glucose 182 H Lactic Acid 5.00 H* Calcium Phosphorus Magnesium AST ALT Alkaline Phosphatase Troponin T C-Reactive Protein Total Protein Albumin LDL Cholesterol Direct HDL Cholesterol Urine Creatinine Hepatitis C Antibody Crossmatch Crossmatch [place] 11/22/17 11/23/17 11/23/17 19:45 01:28 04:56 WBC RBC Hgb Hct MCV MCH MCHC RDW Plt Count Lymph % (Auto) Cottle % (Auto) Eos % (Auto) Lymph # [place]le # Eos # Seg Neutrophils % Seg Neuts % (Manual) Lymphocytes % (Manual) Monocytes % (Manual) Eosinophils % (Manual) Nucleated RBC % Seg Neutrophils # Seg Neutrophils # Man Lymphocytes # (Manual) Monocytes # (Manual) Eosinophils # (Manual) PT INR POC ABG pH 7.505 H POC ABG pCO2 26.3 L POC ABG pO2 Sodium Potassium Chloride Carbon Dioxide BUN Creatinine Glucose POC Glucose 165 H Lactic Acid Calcium Phosphorus Magnesium AST ALT Alkaline Phosphatase Troponin T C-Reactive Protein Total Protein Albumin LDL Cholesterol Direct HDL Cholesterol Urine Creatinine Hepatitis C Antibody Reactive A Crossmatch Crossmatch [place]armed 11/23/17 11/23/17 11/23/17 07:05 12:32 17:53 WBC RBC Hgb Hct MCV MCH MCHC RDW Plt Count Lymph % (Auto) Cottle % (Auto) Eos % (Auto) Lymph # [place]le # Eos # Seg Neutrophils % Seg Neuts % (Manual) Lymphocytes % (Manual) Monocytes % (Manual) Eosinophils % (Manual) Nucleated RBC % Seg Neutrophils # Seg Neutrophils # Man Lymphocytes # (Manual) Monocytes # (Manual) Eosinophils # (Manual) PT INR POC ABG pH POC ABG pCO2 POC ABG pO2 Sodium Potassium Chloride Carbon Dioxide 18 L BUN 61 H Creatinine 4.2 H Glucose 153 H POC Glucose 138 H 173 H Lactic Acid Calcium 7.5 L Phosphorus Magnesium AST ALT Alkaline Phosphatase Troponin T C-Reactive Protein Total Protein Albumin LDL Cholesterol Direct HDL Cholesterol Urine Creatinine Hepatitis C Antibody Crossmatch Crossmatch [place] 11/23/17 11/24/17 11/24/17 23:41 05:42 05:42 WBC 21.5 H RBC 2.48 L Hgb 6.2 L Hct 20.3 L D MCV 82 L MCH 25 L MCHC 31 L RDW 18.9 H Plt Count Lymph % (Auto) [place]le % (Auto) Eos % (Auto) Lymph # [place]le # Eos # Seg Neutrophils % Seg Neuts % (Manual) 94.0 H Lymphocytes % (Manual) 3.0 L Monocytes % (Manual) Eosinophils % (Manual) Nucleated RBC % Seg Neutrophils # Seg Neutrophils # Man 20.2 H Lymphocytes # (Manual) 0.6 L Monocytes # (Manual) Eosinophils # (Manual) PT INR POC ABG pH POC ABG pCO2 POC ABG pO2 Sodium 149 H Potassium 2.8 L* D Chloride 113.9 H Carbon Dioxide 19 L BUN 31 H Creatinine 2.3 H Glucose 103 H POC Glucose 133 H Lactic Acid Calcium 5.3 L* D Phosphorus Magnesium 1.30 L AST ALT Alkaline Phosphatase Troponin T C-Reactive Protein Total Protein Albumin LDL Cholesterol Direct HDL Cholesterol Urine Creatinine Hepatitis C Antibody Crossmatch Crossmatch [place] 11/24/17 11/24/17 11/24/17 05:42 08:27 08:27 WBC RBC Hgb Hct MCV MCH MCHC RDW Plt Count Lymph % (Auto) Cottle % (Auto) Eos % (Auto) Lymph # [place]le # Eos # Seg Neutrophils % Seg Neuts % (Manual) Lymphocytes % (Manual) Monocytes % (Manual) Eosinophils % (Manual) Nucleated RBC % Seg Neutrophils # Seg Neutrophils # Man Lymphocytes # (Manual) Monocytes # (Manual) Eosinophils # (Manual) PT INR POC ABG pH POC ABG pCO2 POC ABG pO2 Sodium Potassium Chloride Carbon Dioxide BUN Creatinine Glucose POC Glucose Lactic Acid 5.40 H* 5.20 H* Calcium Phosphorus Magnesium AST ALT Alkaline Phosphatase Troponin T C-Reactive Protein Total Protein Albumin LDL Cholesterol Direct HDL Cholesterol Urine Creatinine Hepatitis C Antibody Crossmatch See Detail Crossmatch P[facility]armed 11/24/17 11/24/17 11/24/17 12:13 17:22 21:53 WBC 23.0 H RBC 3.32 L Hgb 8.8 L Hct 27.1 L D MCV 82 L MCH 26 L MCHC RDW 17.3 H Plt Count Lymph % (Auto) [place]le % (Auto) Eos % (Auto) Lymph # [place]le # Eos # Seg Neutrophils % Seg Neuts % (Manual) Lymphocytes % (Manual) Monocytes % (Manual) Eosinophils % (Manual) Nucleated RBC % Seg Neutrophils # Seg Neutrophils # Man Lymphocytes # (Manual) Monocytes # (Manual) Eosinophils # (Manual) PT INR POC ABG pH POC ABG pCO2 POC ABG pO2 Sodium Potassium Chloride Carbon Dioxide BUN Creatinine Glucose POC Glucose 138 H 180 H Lactic Acid Calcium Phosphorus Magnesium AST ALT Alkaline Phosphatase Troponin T C-Reactive Protein Total Protein Albumin LDL Cholesterol Direct HDL Cholesterol Urine Creatinine Hepatitis C Antibody Crossmatch Crossmatch [place] 11/24/17 11/24/17 11/25/17 21:53 23:28 04:19 WBC RBC Hgb Hct MCV MCH MCHC RDW Plt Count Lymph % (Auto) Cottle % (Auto) Eos % (Auto) Lymph # Cottle # Eos # Seg Neutrophils % Seg Neuts % (Manual) Lymphocytes % (Manual) Monocytes % (Manual) Eosinophils % (Manual) Nucleated RBC % Seg Neutrophils # Seg Neutrophils # Man Lymphocytes # (Manual) Monocytes # (Manual) Eosinophils # (Manual) PT INR POC ABG pH POC ABG pCO2 POC ABG pO2 Sodium Potassium Chloride 96.3 L Carbon Dioxide BUN 28 H 31 H Creatinine 2.3 H 2.6 H Glucose 125 H 101 H POC Glucose 111 H Lactic Acid Calcium 7.5 L D 7.4 L Phosphorus Magnesium AST 170 H ALT 179 H Alkaline Phosphatase 175 H Troponin T C-Reactive Protein Total Protein 5.5 L Albumin 1.8 L LDL Cholesterol Direct HDL Cholesterol Urine Creatinine Hepatitis C Antibody Crossmatch Crossmatch [facility] 11/25/17 11/25/17 11/26/17 04:19 04:19 06:29 WBC 22.5 H RBC 3.48 L Hgb 9.1 L Hct 28.3 L MCV 81 L MCH 26 L MCHC RDW 17.4 H Plt Count Lymph % (Auto) Cottle % (Auto) Eos % (Auto) Lymph # [place]le # Eos # Seg Neutrophils % Seg Neuts % (Manual) Lymphocytes % (Manual) Monocytes % (Manual) Eosinophils % (Manual) Nucleated RBC % Seg Neutrophils # Seg Neutrophils # Man Lymphocytes # (Manual) Monocytes # (Manual) Eosinophils # (Manual) PT 23.6 H INR 1.96 H POC ABG pH POC ABG pCO2 POC ABG pO2 Sodium Potassium Chloride Carbon Dioxide BUN 31 H Creatinine 2.6 H Glucose 101 H POC Glucose Lactic Acid Calcium 7.5 L Phosphorus Magnesium AST ALT Alkaline Phosphatase Troponin T C-Reactive Protein Total Protein Albumin LDL Cholesterol Direct HDL Cholesterol Urine Creatinine Hepatitis C Antibody Crossmatch Crossmatch [facility] 11/26/17 11/27/17 11/27/17 06:34 04:06 04:06 WBC 11.3 H RBC 3.13 L Hgb 8.4 L Hct 25.8 L MCV 82 L MCH 27 L MCHC RDW 17.7 H Plt Count Lymph % (Auto) 7.4 L [place]le % (Auto) Eos % (Auto) Lymph # 0.8 L [place]le # Eos # Seg Neutrophils % 83.7 H Seg Neuts % (Manual) Lymphocytes % (Manual) Monocytes % (Manual) Eosinophils % (Manual) Nucleated RBC % Seg Neutrophils # 9.5 H Seg Neutrophils # Man Lymphocytes # (Manual) Monocytes # (Manual) Eosinophils # (Manual) PT INR POC ABG pH POC ABG pCO2 POC ABG pO2 Sodium Potassium Chloride 97.9 L Carbon Dioxide BUN 43 H 29 H Creatinine 3.5 H 2.9 H Glucose POC Glucose Lactic Acid Calcium 7.5 L 8.1 L Phosphorus Magnesium AST ALT Alkaline Phosphatase Troponin T C-Reactive Protein Total Protein Albumin LDL Cholesterol Direct HDL Cholesterol Urine Creatinine Hepatitis C Antibody Crossmatch Crossmatch [facility] 11/27/17 11/28/17 11/28/17 18:11 00:16 03:50 WBC RBC Hgb Hct MCV MCH MCHC RDW Plt Count Lymph % (Auto) Cottle % (Auto) Eos % (Auto) Lymph # [place]le # Eos # Seg Neutrophils % Seg Neuts % (Manual) Lymphocytes % (Manual) Monocytes % (Manual) Eosinophils % (Manual) Nucleated RBC % Seg Neutrophils # Seg Neutrophils # Man Lymphocytes # (Manual) Monocytes # (Manual) Eosinophils # (Manual) PT INR POC ABG pH POC ABG pCO2 POC ABG pO2 Sodium Potassium Chloride Carbon Dioxide BUN 39 H Creatinine 4.1 H Glucose 108 H POC Glucose 110 H 124 H Lactic Acid Calcium 7.9 L Phosphorus Magnesium AST ALT Alkaline Phosphatase Troponin T C-Reactive Protein Total Protein Albumin LDL Cholesterol Direct HDL Cholesterol Urine Creatinine Hepatitis C Antibody Crossmatch Crossmatch [facility] 11/28/17 11/28/17 11/28/17 05:03 11:36 17:42 WBC RBC Hgb Hct MCV MCH MCHC RDW Plt Count Lymph % (Auto) Cottle % (Auto) Eos % (Auto) Lymph # [place] # Eos # Seg Neutrophils % Seg Neuts % (Manual) Lymphocytes % (Manual) Monocytes % (Manual) Eosinophils % (Manual) Nucleated RBC % Seg Neutrophils # Seg Neutrophils # Man Lymphocytes # (Manual) Monocytes # (Manual) Eosinophils # (Manual) PT INR POC ABG pH POC ABG pCO2 POC ABG pO2 Sodium Potassium Chloride Carbon Dioxide BUN Creatinine Glucose POC Glucose 134 H 114 H 119 H Lactic Acid Calcium Phosphorus Magnesium AST ALT Alkaline Phosphatase Troponin T C-Reactive Protein Total Protein Albumin LDL Cholesterol Direct HDL Cholesterol Urine Creatinine Hepatitis C Antibody Crossmatch Crossmatch [facility] 11/29/17 11/29/17 11/29/17 00:22 05:25 05:25 WBC 12.3 H RBC 3.34 L Hgb 8.6 L Hct 27.3 L MCV 82 L MCH 26 L MCHC RDW 18.5 H Plt Count Lymph % (Auto) 3.7 L Cottle % (Auto) 7.7 H Eos % (Auto) Lymph # 0.5 L Cottle # 1.0 H Eos # Seg Neutrophils % 86.5 H Seg Neuts % (Manual) Lymphocytes % (Manual) Monocytes % (Manual) Eosinophils % (Manual) Nucleated RBC % Seg Neutrophils # 10.7 H Seg Neutrophils # Man Lymphocytes # (Manual) Monocytes # (Manual) Eosinophils # (Manual) PT INR POC ABG pH POC ABG pCO2 POC ABG pO2 Sodium Potassium Chloride Carbon Dioxide BUN 29 H Creatinine 3.5 H Glucose 109 H POC Glucose 137 H Lactic Acid Calcium 7.8 L Phosphorus Magnesium AST ALT Alkaline Phosphatase Troponin T C-Reactive Protein Total Protein Albumin LDL Cholesterol Direct HDL Cholesterol Urine Creatinine Hepatitis C Antibody Crossmatch Crossmatch [facility] 11/29/17 11/30/17 11/30/17 05:26 00:26 04:17 WBC RBC Hgb Hct MCV MCH MCHC RDW Plt Count Lymph % (Auto) Cottle % (Auto) Eos % (Auto) Lymph # [place] # Eos # Seg Neutrophils % Seg Neuts % (Manual) Lymphocytes % (Manual) Monocytes % (Manual) Eosinophils % (Manual) Nucleated RBC % Seg Neutrophils # Seg Neutrophils # Man Lymphocytes # (Manual) Monocytes # (Manual) Eosinophils # (Manual) PT INR POC ABG pH POC ABG pCO2 POC ABG pO2 Sodium Potassium Chloride Carbon Dioxide BUN 38 H Creatinine 4.3 H Glucose 109 H POC Glucose 129 H 152 H Lactic Acid Calcium 7.8 L Phosphorus Magnesium AST ALT Alkaline Phosphatase Troponin T C-Reactive Protein Total Protein Albumin LDL Cholesterol Direct HDL Cholesterol Urine Creatinine Hepatitis C Antibody Crossmatch Crossmatch [facility] 11/30/17 11/30/17 11/30/17 12:17 16:23 23:35 WBC RBC Hgb Hct MCV MCH MCHC RDW Plt Count Lymph % (Auto) Cottle % (Auto) Eos % (Auto) Lymph # [place] # Eos # Seg Neutrophils % Seg Neuts % (Manual) Lymphocytes % (Manual) Monocytes % (Manual) Eosinophils % (Manual) Nucleated RBC % Seg Neutrophils # Seg Neutrophils # Man Lymphocytes # (Manual) Monocytes # (Manual) Eosinophils # (Manual) PT INR POC ABG pH POC ABG pCO2 POC ABG pO2 Sodium Potassium Chloride Carbon Dioxide BUN Creatinine Glucose POC Glucose 170 H 114 H 122 H Lactic Acid Calcium Phosphorus Magnesium AST ALT Alkaline Phosphatase Troponin T C-Reactive Protein Total Protein Albumin LDL Cholesterol Direct HDL Cholesterol Urine Creatinine Hepatitis C Antibody Crossmatch Crossmatch [facility] 12/01/17 12/01/17 12/01/17 04:09 04:09 12:17 WBC 14.1 H RBC 3.32 L Hgb 8.6 L Hct 27.0 L MCV 81 L MCH 26 L MCHC RDW 18.7 H Plt Count Lymph % (Auto) 5.5 L Cottle % (Auto) 9.7 H Eos % (Auto) Lymph # 0.8 L Cottle # 1.4 H Eos # Seg Neutrophils % 82.9 H Seg Neuts % (Manual) Lymphocytes % (Manual) Monocytes % (Manual) Eosinophils % (Manual) Nucleated RBC % Seg Neutrophils # 11.7 H Seg Neutrophils # Man Lymphocytes # (Manual) Monocytes # (Manual) Eosinophils # (Manual) PT INR POC ABG pH POC ABG pCO2 POC ABG pO2 Sodium Potassium 3.4 L Chloride Carbon Dioxide BUN 21 H Creatinine 3.0 H Glucose 108 H POC Glucose 126 H Lactic Acid Calcium 8.0 L Phosphorus Magnesium AST ALT Alkaline Phosphatase Troponin T C-Reactive Protein Total Protein Albumin LDL Cholesterol Direct HDL Cholesterol Urine Creatinine Hepatitis C Antibody Crossmatch Crossmatch [facility] 12/02/17 12/03/17 12/03/17 23:46 02:52 05:54 WBC 17.2 H RBC 3.21 L Hgb 8.5 L Hct 25.8 L MCV 80 L MCH 26 L MCHC RDW 18.4 H Plt Count 128 L Lymph % (Auto) [place]le % (Auto) Eos % (Auto) Lymph # [place]le # Eos # Seg Neutrophils % Seg Neuts % (Manual) Lymphocytes % (Manual) Monocytes % (Manual) Eosinophils % (Manual) Nucleated RBC % Seg Neutrophils # Seg Neutrophils # Man Lymphocytes # (Manual) Monocytes # (Manual) Eosinophils # (Manual) PT INR POC ABG pH POC ABG pCO2 POC ABG pO2 Sodium Potassium Chloride Carbon Dioxide BUN Creatinine Glucose POC Glucose 125 H 107 H Lactic Acid Calcium Phosphorus Magnesium AST ALT Alkaline Phosphatase Troponin T C-Reactive Protein Total Protein Albumin LDL Cholesterol Direct HDL Cholesterol Urine Creatinine Hepatitis C Antibody Crossmatch Crossmatch [facility] 12/03/17 12/03/17 12/04/17 12:05 Unknown 12:26 WBC RBC Hgb Hct MCV MCH MCHC RDW Plt Count Lymph % (Auto) Cottle % (Auto) Eos % (Auto) Lymph # [place]le # Eos # Seg Neutrophils % Seg Neuts % (Manual) Lymphocytes % (Manual) Monocytes % (Manual) Eosinophils % (Manual) Nucleated RBC % Seg Neutrophils # Seg Neutrophils # Man Lymphocytes # (Manual) Monocytes # (Manual) Eosinophils # (Manual) PT INR POC ABG pH POC ABG pCO2 POC ABG pO2 Sodium Potassium Chloride Carbon Dioxide BUN 21 H Creatinine 2.8 H Glucose 113 H POC Glucose 106 H 119 H Lactic Acid Calcium Phosphorus Magnesium AST ALT Alkaline Phosphatase Troponin T C-Reactive Protein Total Protein Albumin LDL Cholesterol Direct HDL Cholesterol Urine Creatinine Hepatitis C Antibody Crossmatch Crossmatch [facility] 12/04/17 12/05/17 12/05/17 17:57 00:52 04:05 WBC RBC 2.96 L Hgb 7.7 L Hct 24.2 L MCV 82 L MCH 26 L MCHC RDW 18.8 H Plt Count 105 L Lymph % (Auto) 10.6 L Cottle % (Auto) 12.1 H Eos % (Auto) 5.2 H Lymph # 1.1 L Cottle # 1.3 H Eos # 0.5 H Seg Neutrophils % 71.3 H Seg Neuts % (Manual) Lymphocytes % (Manual) Monocytes % (Manual) Eosinophils % (Manual) Nucleated RBC % Seg Neutrophils # Seg Neutrophils # Man Lymphocytes # (Manual) Monocytes # (Manual) Eosinophils # (Manual) PT INR POC ABG pH POC ABG pCO2 POC ABG pO2 Sodium Potassium Chloride Carbon Dioxide BUN Creatinine Glucose POC Glucose 140 H 117 H Lactic Acid Calcium Phosphorus Magnesium AST ALT Alkaline Phosphatase Troponin T C-Reactive Protein Total Protein Albumin LDL Cholesterol Direct HDL Cholesterol Urine Creatinine Hepatitis C Antibody Crossmatch Crossmatch [facility] 12/05/17 12/05/17 12/06/17 04:05 22:50 08:18 WBC RBC 2.80 L Hgb 7.4 L Hct 23.0 L MCV 82 L MCH 27 L MCHC RDW 19.5 H Plt Count 125 L Lymph % (Auto) Cottle % (Auto) Eos % (Auto) Lymph # [place]le # Eos # Seg Neutrophils % Seg Neuts % (Manual) Lymphocytes % (Manual) Monocytes % (Manual) Eosinophils % (Manual) Nucleated RBC % Seg Neutrophils # Seg Neutrophils # Man Lymphocytes # (Manual) Monocytes # (Manual) Eosinophils # (Manual) PT INR POC ABG pH POC ABG pCO2 POC ABG pO2 Sodium Potassium Chloride 107.4 H Carbon Dioxide BUN Creatinine 2.5 H Glucose POC Glucose 112 H Lactic Acid Calcium 8.3 L Phosphorus Magnesium AST ALT Alkaline Phosphatase Troponin T C-Reactive Protein Total Protein Albumin LDL Cholesterol Direct HDL Cholesterol Urine Creatinine Hepatitis C Antibody Crossmatch Crossmatch [facility] 12/06/17 12/06/17 12/06/17 08:18 12:01 23:58 WBC RBC Hgb Hct MCV MCH MCHC RDW Plt Count Lymph % (Auto) [place]le % (Auto) Eos % (Auto) Lymph # [place] # Eos # Seg Neutrophils % Seg Neuts % (Manual) Lymphocytes % (Manual) Monocytes % (Manual) Eosinophils % (Manual) Nucleated RBC % Seg Neutrophils # Seg Neutrophils # Man Lymphocytes # (Manual) Monocytes # (Manual) Eosinophils # (Manual) PT INR POC ABG pH POC ABG pCO2 POC ABG pO2 Sodium Potassium Chloride 108.4 H Carbon Dioxide BUN 28 H Creatinine 3.7 H Glucose 103 H POC Glucose 106 H 108 H Lactic Acid Calcium 8.0 L Phosphorus Magnesium AST ALT Alkaline Phosphatase Troponin T C-Reactive Protein Total Protein Albumin LDL Cholesterol Direct HDL Cholesterol Urine Creatinine Hepatitis C Antibody Crossmatch Crossmatch [facility] 12/07/17 12/07/17 12/07/17 05:47 05:47 18:03 WBC RBC 2.79 L Hgb 7.3 L Hct 22.8 L MCV 82 L MCH 26 L MCHC RDW 19.1 H Plt Count 101 L Lymph % (Auto) [place]le % (Auto) Eos % (Auto) Lymph # [place] # Eos # Seg Neutrophils % Seg Neuts % (Manual) 72.0 H Lymphocytes % (Manual) 13.0 L Monocytes % (Manual) Eosinophils % (Manual) 9.0 H Nucleated RBC % Seg Neutrophils # Seg Neutrophils # Man Lymphocytes # (Manual) 1.1 L Monocytes # (Manual) Eosinophils # (Manual) 0.8 H PT INR POC ABG pH POC ABG pCO2 POC ABG pO2 Sodium 146 H Potassium Chloride 109.8 H Carbon Dioxide BUN 36 H Creatinine 4.0 H Glucose POC Glucose 143 H Lactic Acid Calcium 8.0 L Phosphorus Magnesium AST ALT Alkaline Phosphatase Troponin T C-Reactive Protein Total Protein Albumin LDL Cholesterol Direct HDL Cholesterol Urine Creatinine Hepatitis C Antibody Crossmatch Crossmatch [facility] 12/07/17 12/08/17 12/08/17 23:33 05:10 05:10 WBC RBC 2.91 L Hgb 7.5 L Hct 24.4 L MCV MCH 26 L MCHC 31 L RDW 19.7 H Plt Count 109 L Lymph % (Auto) [place]le % (Auto) Eos % (Auto) Lymph # [place] # Eos # Seg Neutrophils % Seg Neuts % (Manual) Lymphocytes % (Manual) 11.0 L Monocytes % (Manual) Eosinophils % (Manual) 12.0 H Nucleated RBC % Seg Neutrophils # Seg Neutrophils # Man Lymphocytes # (Manual) 0.7 L Monocytes # (Manual) Eosinophils # (Manual) 0.7 H PT INR POC ABG pH POC ABG pCO2 POC ABG pO2 Sodium 147 H Potassium Chloride 110.4 H Carbon Dioxide BUN Creatinine 2.8 H Glucose POC Glucose 107 H Lactic Acid Calcium 7.8 L Phosphorus Magnesium AST ALT Alkaline Phosphatase Troponin T C-Reactive Protein Total Protein Albumin LDL Cholesterol Direct HDL Cholesterol Urine Creatinine Hepatitis C Antibody Crossmatch Crossmatch [facility] 12/09/17 12/09/17 12/09/17 04:18 04:18 12:16 WBC RBC Hgb 7.2 L Hct 23.2 L MCV MCH MCHC RDW Plt Count Lymph % (Auto) [place]le % (Auto) Eos % (Auto) Lymph # [place] # Eos # Seg Neutrophils % Seg Neuts % (Manual) Lymphocytes % (Manual) Monocytes % (Manual) Eosinophils % (Manual) Nucleated RBC % Seg Neutrophils # Seg Neutrophils # Man Lymphocytes # (Manual) Monocytes # (Manual) Eosinophils # (Manual) PT INR POC ABG pH POC ABG pCO2 POC ABG pO2 Sodium 150 H Potassium Chloride 114.5 H Carbon Dioxide BUN 25 H Creatinine 3.3 H Glucose POC Glucose 142 H Lactic Acid Calcium 7.7 L Phosphorus Magnesium AST ALT Alkaline Phosphatase Troponin T C-Reactive Protein Total Protein Albumin LDL Cholesterol Direct HDL Cholesterol Urine Creatinine Hepatitis C Antibody Crossmatch Crossmatch [facility] 12/10/17 12/10/17 12/11/17 05:14 05:14 12:05 WBC RBC 2.81 L Hgb 7.4 L Hct 23.9 L MCV MCH 26 L MCHC 31 L RDW 19.1 H Plt Count 128 L Lymph % (Auto) [place]le % (Auto) Eos % (Auto) Lymph # [place] # Eos # Seg Neutrophils % Seg Neuts % (Manual) 78.0 H Lymphocytes % (Manual) 8.0 L Monocytes % (Manual) Eosinophils % (Manual) 5.0 H Nucleated RBC % Seg Neutrophils # Seg Neutrophils # Man Lymphocytes # (Manual) 0.6 L Monocytes # (Manual) Eosinophils # (Manual) PT INR POC ABG pH POC ABG pCO2 POC ABG pO2 Sodium Potassium Chloride Carbon Dioxide BUN Creatinine 2.2 H Glucose POC Glucose 127 H Lactic Acid Calcium 7.8 L Phosphorus Magnesium AST ALT Alkaline Phosphatase Troponin T C-Reactive Protein Total Protein Albumin LDL Cholesterol Direct HDL Cholesterol Urine Creatinine Hepatitis C Antibody Crossmatch Crossmatch [facility] 12/11/17 12/11/17 12/11/17 15:26 18:36 23:40 WBC RBC Hgb Hct MCV MCH MCHC RDW Plt Count Lymph % (Auto) Cottle % (Auto) Eos % (Auto) Lymph # [place] # Eos # Seg Neutrophils % Seg Neuts % (Manual) Lymphocytes % (Manual) Monocytes % (Manual) Eosinophils % (Manual) Nucleated RBC % Seg Neutrophils # Seg Neutrophils # Man Lymphocytes # (Manual) Monocytes # (Manual) Eosinophils # (Manual) PT INR POC ABG pH POC ABG pCO2 POC ABG pO2 Sodium Potassium 3.3 L Chloride Carbon Dioxide BUN Creatinine 1.6 H Glucose POC Glucose 106 H 110 H Lactic Acid Calcium 7.6 L Phosphorus Magnesium AST ALT Alkaline Phosphatase Troponin T C-Reactive Protein Total Protein Albumin LDL Cholesterol Direct HDL Cholesterol Urine Creatinine Hepatitis C Antibody Crossmatch Crossmatch [facility] 12/12/17 12/12/17 12/12/17 05:10 05:41 05:41 WBC RBC 3.17 L Hgb 8.1 L Hct 25.7 L MCV 81 L MCH 25 L MCHC 31 L RDW 19.2 H Plt Count Lymph % (Auto) [place]le % (Auto) Eos % (Auto) Lymph # [place] # Eos # Seg Neutrophils % Seg Neuts % (Manual) 74.0 H Lymphocytes % (Manual) 6.0 L Monocytes % (Manual) Eosinophils % (Manual) 9.0 H Nucleated RBC % Seg Neutrophils # Seg Neutrophils # Man Lymphocytes # (Manual) 0.6 L Monocytes # (Manual) Eosinophils # (Manual) 0.9 H PT INR POC ABG pH POC ABG pCO2 POC ABG pO2 Sodium Potassium 3.5 L Chloride Carbon Dioxide BUN Creatinine 2.3 H Glucose 113 H POC Glucose 112 H Lactic Acid Calcium 7.5 L Phosphorus Magnesium AST ALT Alkaline Phosphatase Troponin T C-Reactive Protein Total Protein Albumin LDL Cholesterol Direct HDL Cholesterol Urine Creatinine Hepatitis C Antibody Crossmatch Crossmatch [facility] 12/13/17 12/13/17 12/13/17 06:14 12:00 17:37 WBC RBC Hgb Hct MCV MCH MCHC RDW Plt Count Lymph % (Auto) [place]le % (Auto) Eos % (Auto) Lymph # [place] # Eos # Seg Neutrophils % Seg Neuts % (Manual) Lymphocytes % (Manual) Monocytes % (Manual) Eosinophils % (Manual) Nucleated RBC % Seg Neutrophils # Seg Neutrophils # Man Lymphocytes # (Manual) Monocytes # (Manual) Eosinophils # (Manual) PT INR POC ABG pH POC ABG pCO2 POC ABG pO2 Sodium Potassium Chloride Carbon Dioxide BUN Creatinine Glucose POC Glucose 130 H 133 H 136 H Lactic Acid Calcium Phosphorus Magnesium AST ALT Alkaline Phosphatase Troponin T C-Reactive Protein Total Protein Albumin LDL Cholesterol Direct HDL Cholesterol Urine Creatinine Hepatitis C Antibody Crossmatch Crossmatch [facility] 12/13/17 12/14/17 12/14/17 23:39 05:11 05:11 WBC RBC Hgb Hct MCV MCH MCHC RDW Plt Count Lymph % (Auto) [place]le % (Auto) Eos % (Auto) Lymph # [place] # Eos # Seg Neutrophils % Seg Neuts % (Manual) Lymphocytes % (Manual) Monocytes % (Manual) Eosinophils % (Manual) Nucleated RBC % Seg Neutrophils # Seg Neutrophils # Man Lymphocytes # (Manual) Monocytes # (Manual) Eosinophils # (Manual) PT 15.4 H INR 1.17 H POC ABG pH POC ABG pCO2 POC ABG pO2 Sodium Potassium Chloride Carbon Dioxide 21 L BUN 26 H Creatinine 2.9 H Glucose POC Glucose 108 H Lactic Acid Calcium 7.2 L Phosphorus Magnesium AST ALT Alkaline Phosphatase Troponin T C-Reactive Protein Total Protein Albumin LDL Cholesterol Direct HDL Cholesterol Urine Creatinine Hepatitis C Antibody Crossmatch Crossmatch [facility] 12/14/17 12/14/17 12/14/17 12:00 16:01 18:24 WBC 12.9 H RBC 3.25 L Hgb 8.2 L Hct 26.2 L MCV 81 L MCH 25 L MCHC 31 L RDW 19.2 H Plt Count Lymph % (Auto) [place]le % (Auto) Eos % (Auto) Lymph # [place] # Eos # Seg Neutrophils % Seg Neuts % (Manual) Lymphocytes % (Manual) Monocytes % (Manual) Eosinophils % (Manual) Nucleated RBC % Seg Neutrophils # Seg Neutrophils # Man Lymphocytes # (Manual) Monocytes # (Manual) Eosinophils # (Manual) PT INR POC ABG pH POC ABG pCO2 POC ABG pO2 Sodium Potassium Chloride Carbon Dioxide BUN Creatinine Glucose POC Glucose 138 H 120 H Lactic Acid Calcium Phosphorus Magnesium AST ALT Alkaline Phosphatase Troponin T C-Reactive Protein Total Protein Albumin LDL Cholesterol Direct HDL Cholesterol Urine Creatinine Hepatitis C Antibody Crossmatch Crossmatch [facility] 12/14/17 12/14/17 12/15/17 23:29 Unknown 05:57 WBC 12.5 H RBC 2.48 L Hgb 6.0 L Hct 24.4 L MCV 79 L MCH 24 L MCHC 30 L RDW 18.5 H Plt Count 131 L Lymph % (Auto) 7.0 L Cottle % (Auto) 8.9 H Eos % (Auto) 8.3 H Lymph # 0.9 L Cottle # 1.1 H Eos # 1.0 H Seg Neutrophils % 75.2 H Seg Neuts % (Manual) Lymphocytes % (Manual) Monocytes % (Manual) Eosinophils % (Manual) Nucleated RBC % Seg Neutrophils # 9.4 H Seg Neutrophils # Man Lymphocytes # (Manual) Monocytes # (Manual) Eosinophils # (Manual) PT INR POC ABG pH POC ABG pCO2 POC ABG pO2 Sodium Potassium Chloride Carbon Dioxide BUN Creatinine Glucose POC Glucose 110 H 113 H Lactic Acid Calcium Phosphorus Magnesium AST ALT Alkaline Phosphatase Troponin T C-Reactive Protein Total Protein Albumin LDL Cholesterol Direct HDL Cholesterol Urine Creatinine Hepatitis C Antibody Crossmatch Crossmatch [facility] 12/15/17 12/15/17 12/15/17 11:50 13:37 17:58 WBC RBC Hgb 7.3 L Hct 23.3 L MCV MCH MCHC RDW Plt Count Lymph % (Auto) Cottle % (Auto) Eos % (Auto) Lymph # [place]le # Eos # Seg Neutrophils % Seg Neuts % (Manual) Lymphocytes % (Manual) Monocytes % (Manual) Eosinophils % (Manual) Nucleated RBC % Seg Neutrophils # Seg Neutrophils # Man Lymphocytes # (Manual) Monocytes # (Manual) Eosinophils # (Manual) PT INR POC ABG pH POC ABG pCO2 POC ABG pO2 Sodium Potassium Chloride Carbon Dioxide BUN Creatinine Glucose POC Glucose 106 H 110 H Lactic Acid Calcium Phosphorus Magnesium AST ALT Alkaline Phosphatase Troponin T C-Reactive Protein Total Protein Albumin LDL Cholesterol Direct HDL Cholesterol Urine Creatinine Hepatitis C Antibody Crossmatch Crossmatch [facility] 12/15/17 12/16/17 12/16/17 23:30 04:55 05:14 WBC 13.2 H RBC 2.79 L Hgb 6.9 L Hct 22.2 L MCV 80 L MCH 25 L MCHC 31 L RDW 18.8 H Plt Count Lymph % (Auto) 7.3 L [place]le % (Auto) 11.0 H Eos % (Auto) 8.2 H Lymph # 1.0 L [place]le # 1.4 H Eos # 1.1 H Seg Neutrophils % 72.9 H Seg Neuts % (Manual) Lymphocytes % (Manual) Monocytes % (Manual) Eosinophils % (Manual) Nucleated RBC % Seg Neutrophils # 9.6 H Seg Neutrophils # Man Lymphocytes # (Manual) Monocytes # (Manual) Eosinophils # (Manual) PT INR POC ABG pH POC ABG pCO2 POC ABG pO2 Sodium 131 L D Potassium 2.8 L* D Chloride 93.2 L Carbon Dioxide BUN 24 H Creatinine 2.0 H Glucose POC Glucose 111 H Lactic Acid Calcium 7.7 L Phosphorus Magnesium AST ALT Alkaline Phosphatase Troponin T C-Reactive Protein Total Protein Albumin LDL Cholesterol Direct HDL Cholesterol Urine Creatinine Hepatitis C Antibody Crossmatch Crossmatch [facility] 12/16/17 12/16/17 12/16/17 13:01 17:32 23:39 WBC RBC Hgb Hct MCV MCH MCHC RDW Plt Count Lymph % (Auto) Cottle % (Auto) Eos % (Auto) Lymph # [place]le # Eos # Seg Neutrophils % Seg Neuts % (Manual) Lymphocytes % (Manual) Monocytes % (Manual) Eosinophils % (Manual) Nucleated RBC % Seg Neutrophils # Seg Neutrophils # Man Lymphocytes # (Manual) Monocytes # (Manual) Eosinophils # (Manual) PT INR POC ABG pH POC ABG pCO2 POC ABG pO2 Sodium Potassium Chloride Carbon Dioxide BUN Creatinine Glucose POC Glucose 121 H 107 H Lactic Acid Calcium Phosphorus Magnesium AST ALT Alkaline Phosphatase Troponin T C-Reactive Protein Total Protein Albumin LDL Cholesterol Direct HDL Cholesterol Urine Creatinine Hepatitis C Antibody Crossmatch Crossmatch [facility] See Detail 12/17/17 12/17/17 12/17/17 05:08 05:08 12:03 WBC 12.9 H RBC 2.88 L Hgb 7.2 L Hct 22.6 L MCV 78 L MCH 25 L MCHC RDW 18.3 H Plt Count Lymph % (Auto) 8.0 L [place]le % (Auto) 8.6 H Eos % (Auto) Lymph # 1.0 L [place]le # 1.1 H Eos # Seg Neutrophils % 79.3 H Seg Neuts % (Manual) Lymphocytes % (Manual) Monocytes % (Manual) Eosinophils % (Manual) Nucleated RBC % Seg Neutrophils # 10.2 H Seg Neutrophils # Man Lymphocytes # (Manual) Monocytes # (Manual) Eosinophils # (Manual) PT INR POC ABG pH POC ABG pCO2 POC ABG pO2 Sodium Potassium 3.4 L D Chloride Carbon Dioxide BUN Creatinine Glucose 104 H POC Glucose 109 H Lactic Acid Calcium 7.6 L Phosphorus Magnesium 1.30 L AST ALT Alkaline Phosphatase 177 H Troponin T C-Reactive Protein Total Protein Albumin 2.0 L LDL Cholesterol Direct HDL Cholesterol Urine Creatinine Hepatitis C Antibody Crossmatch Crossmatch [facility] 12/17/17 12/18/17 12/18/17 23:40 00:50 00:50 WBC 22.6 H RBC 2.76 L Hgb 6.7 L Hct 21.6 L MCV 78 L MCH 24 L MCHC 31 L RDW 18.4 H Plt Count Lymph % (Auto) [place]le % (Auto) Eos % (Auto) Lymph # [place]le # Eos # Seg Neutrophils % Seg Neuts % (Manual) Lymphocytes % (Manual) Monocytes % (Manual) Eosinophils % (Manual) Nucleated RBC % Seg Neutrophils # Seg Neutrophils # Man Lymphocytes # (Manual) Monocytes # (Manual) Eosinophils # (Manual) PT INR POC ABG pH POC ABG pCO2 POC ABG pO2 Sodium Potassium Chloride Carbon Dioxide BUN 22 H Creatinine 1.6 H Glucose 113 H POC Glucose 120 H Lactic Acid Calcium 7.8 L Phosphorus Magnesium 1.50 L AST ALT Alkaline Phosphatase Troponin T C-Reactive Protein Total Protein Albumin LDL Cholesterol Direct HDL Cholesterol Urine Creatinine Hepatitis C Antibody Crossmatch Crossmatch [facility] 12/18/17 12/18/17 12/18/17 05:34 12:00 18:07 WBC RBC Hgb Hct MCV MCH MCHC RDW Plt Count Lymph % (Auto) [place]le % (Auto) Eos % (Auto) Lymph # [place]le # Eos # Seg Neutrophils % Seg Neuts % (Manual) Lymphocytes % (Manual) Monocytes % (Manual) Eosinophils % (Manual) Nucleated RBC % Seg Neutrophils # Seg Neutrophils # Man Lymphocytes # (Manual) Monocytes # (Manual) Eosinophils # (Manual) PT INR POC ABG pH POC ABG pCO2 POC ABG pO2 Sodium Potassium Chloride Carbon Dioxide BUN Creatinine Glucose POC Glucose 132 H 136 H 122 H Lactic Acid Calcium Phosphorus Magnesium AST ALT Alkaline Phosphatase Troponin T C-Reactive Protein Total Protein Albumin LDL Cholesterol Direct HDL Cholesterol Urine Creatinine Hepatitis C Antibody Crossmatch Crossmatch Prewarmed 12/19/17 12/19/17 12/19/17 00:24 00:24 05:17 WBC 15.4 H RBC 2.41 L Hgb 6.1 L Hct 19.0 L* MCV 79 L MCH 25 L MCHC RDW 18.5 H Plt Count Lymph % (Auto) [place] % (Auto) Eos % (Auto) Lymph # Cott[place] # Eos # Seg Neutrophils % Seg Neuts % (Manual) Lymphocytes % (Manual) Monocytes % (Manual) Eosinophils % (Manual) Nucleated RBC % Seg Neutrophils # Seg Neutrophils # Man Lymphocytes # (Manual) Monocytes # (Manual) Eosinophils # (Manual) PT INR POC ABG pH POC ABG pCO2 POC ABG pO2 Sodium Potassium 3.2 L Chloride Carbon Dioxide BUN Creatinine Glucose 117 H POC Glucose 132 H Lactic Acid Calcium 8.2 L Phosphorus Magnesium 1.50 L AST ALT Alkaline Phosphatase Troponin T C-Reactive Protein Total Protein Albumin LDL Cholesterol Direct HDL Cholesterol Urine Creatinine Hepatitis C Antibody Crossmatch Crossmatch P[place]armed 12/19/17 12/19/17 12/19/17 09:00 09:00 18:01 WBC 12.4 H RBC 2.86 L Hgb 7.2 L Hct 22.6 L MCV 79 L MCH 25 L MCHC RDW 17.2 H Plt Count Lymph % (Auto) 6.8 L Cott[place] % (Auto) 12.6 H Eos % (Auto) Lymph # 0.8 L Cottle # 1.6 H Eos # Seg Neutrophils % 80.1 H Seg Neuts % (Manual) Lymphocytes % (Manual) Monocytes % (Manual) Eosinophils % (Manual) Nucleated RBC % Seg Neutrophils # 10.0 H Seg Neutrophils # Man Lymphocytes # (Manual) Monocytes # (Manual) Eosinophils # (Manual) PT INR POC ABG pH POC ABG pCO2 POC ABG pO2 Sodium Potassium 3.1 L Chloride Carbon Dioxide BUN 22 H Creatinine Glucose 113 H POC Glucose 117 H Lactic Acid Calcium 8.3 L Phosphorus Magnesium AST 54 H ALT Alkaline Phosphatase 204 H Troponin T C-Reactive Protein Total Protein 5.8 L Albumin 2.0 L LDL Cholesterol Direct HDL Cholesterol Urine Creatinine Hepatitis C Antibody Crossmatch Crossmatch P[place]armed 12/19/17 12/20/17 12/20/17 23:49 05:53 19:00 WBC RBC 3.03 L Hgb 7.7 L Hct 23.7 L MCV 78 L MCH 25 L MCHC RDW 17.2 H Plt Count Lymph % (Auto) [place] % (Auto) Eos % (Auto) Lymph # Cott[place] # Eos # Seg Neutrophils % Seg Neuts % (Manual) 74.0 H Lymphocytes % (Manual) 6.0 L Monocytes % (Manual) 17.0 H Eosinophils % (Manual) Nucleated RBC % Seg Neutrophils # Seg Neutrophils # Man Lymphocytes # (Manual) 0.5 L Monocytes # (Manual) 1.5 H Eosinophils # (Manual) PT INR POC ABG pH POC ABG pCO2 POC ABG pO2 Sodium Potassium Chloride Carbon Dioxide BUN Creatinine Glucose POC Glucose 125 H 124 H Lactic Acid Calcium Phosphorus Magnesium AST ALT Alkaline Phosphatase Troponin T C-Reactive Protein Total Protein Albumin LDL Cholesterol Direct HDL Cholesterol Urine Creatinine Hepatitis C Antibody Crossmatch Crossmatch P[place]armed 12/20/17 12/21/17 12/22/17 19:00 23:54 05:07 WBC RBC Hgb Hct MCV MCH MCHC RDW Plt Count Lymph % (Auto) [place] % (Auto) Eos % (Auto) Lymph # [place] # Eos # Seg Neutrophils % Seg Neuts % (Manual) Lymphocytes % (Manual) Monocytes % (Manual) Eosinophils % (Manual) Nucleated RBC % Seg Neutrophils # Seg Neutrophils # Man Lymphocytes # (Manual) Monocytes # (Manual) Eosinophils # (Manual) PT INR POC ABG pH POC ABG pCO2 POC ABG pO2 Sodium Potassium 3.3 L 2.9 L* Chloride Carbon Dioxide BUN 37 H 43 H Creatinine Glucose 114 H POC Glucose 109 H Lactic Acid Calcium 8.3 L 7.8 L Phosphorus 1.60 L Magnesium 1.50 L AST ALT Alkaline Phosphatase Troponin T C-Reactive Protein Total Protein Albumin LDL Cholesterol Direct HDL Cholesterol Urine Creatinine Hepatitis C Antibody Crossmatch Crossmatch P[place]armed 12/22/17 12/22/17 12/22/17 05:07 05:07 06:02 WBC 4.1 L RBC 3.09 L Hgb 7.7 L Hct 24.3 L MCV 79 L MCH 25 L MCHC RDW 17.8 H Plt Count Lymph % (Auto) [place] % (Auto) Eos % (Auto) Lymph # [place] # Eos # Seg Neutrophils % Seg Neuts % (Manual) Lymphocytes % (Manual) Monocytes % (Manual) Eosinophils % (Manual) Nucleated RBC % Seg Neutrophils # Seg Neutrophils # Man Lymphocytes # (Manual) Monocytes # (Manual) Eosinophils # (Manual) PT INR POC ABG pH POC ABG pCO2 POC ABG pO2 Sodium Potassium Chloride Carbon Dioxide BUN Creatinine Glucose POC Glucose 107 H Lactic Acid Calcium Phosphorus Magnesium 1.60 L AST ALT Alkaline Phosphatase Troponin T C-Reactive Protein Total Protein Albumin LDL Cholesterol Direct HDL Cholesterol Urine Creatinine Hepatitis C Antibody Crossmatch Crossmatch Prewarmed 12/22/17 12/22/17 10:50 12:02 WBC RBC Hgb Hct MCV MCH MCHC RDW Plt Count Lymph % (Auto) [place] % (Auto) Eos % (Auto) Lymph # Cott[place] # Eos # Seg Neutrophils % Seg Neuts % (Manual) Lymphocytes % (Manual) Monocytes % (Manual) Eosinophils % (Manual) Nucleated RBC % Seg Neutrophils # Seg Neutrophils # Man Lymphocytes # (Manual) Monocytes # (Manual) Eosinophils # (Manual) PT INR POC ABG pH POC ABG pCO2 POC ABG pO2 Sodium Potassium Chloride Carbon Dioxide BUN Creatinine Glucose POC Glucose 129 H Lactic Acid Calcium Phosphorus Magnesium AST ALT Alkaline Phosphatase Troponin T C-Reactive Protein Total Protein Albumin LDL Cholesterol Direct HDL Cholesterol Urine Creatinine 55.8 H Hepatitis C Antibody Crossmatch Crossmatch Prewarmed Chest x-ray: report reviewed, image reviewed
--- NOTE | 2017-12-22 15:55 | Progress Note ---
Assessment and Plan Assessment and plan: Admitted 11/12/17 Mr. 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 He had a Carotid doppler done that revealed a right ICA 50-79% stenosis. CTA of the neck revealed 80% stenosis of the right ICA with probable 50% stenosis of the origin of the right common carotid artery. His symptoms were thought to be due to the Carotid artery stenosis which was disheartening since he was on Aspirin and plavix. He was scheduled for right CEA but needed Cardiac clearance. He underwent stress test on 10/05/17 and Bull Driver stated he was stable for non-cardiac history, low to moderate perioperative risk. So, he underwent right carotid enarterectomy on 10/09/17. Following the surgery, he developed recurrent left sided weakness/hemiparesis and was taken back to the OR on 10/10/17 for Open Thrombectomy of Right Internal Carotid Artery and Injection of tPA into the Artery. CT head obtained 2 days after surgery on 10/12 showed massive right cerebral hemisphere acute CVA with midline shift. He was subsequently discharged on 11/10/17 to [facility] but returned to [facility] ED and was re-admitted on 11/12/17 for suspected sepsis due to Aspiration post-obstructive pneumonia with suspected mucus plug and subsequently intubated on admission. On 11/20/17, patient went for Tracheostomy by Dr. Hughes, ENT. Then on 11/21/17 patient went into shock, most likely sepsis as WBC went up to 38.2k; initially thought to be due worsening aspiration pneumonia but it was discovered that he had a dislodged PEG tube from the Nursing, most likely present on admission, which lead to the shock from severe intra-abdominal infection/ peritonitis requiring IR drainage and General surgery drainage. Peritonitis - from dislodged peg tube, hence not present - has completed abx - s/p multiple intraabdominal drainages placed by IR and GS. -awaiting abdominal wounds to heal prior to placement of new PEG tube -Acute hypoxic respiratory failure due to Pneumonia on MV>96 hours s/p Tracheostomy 11/20/17: continue trache collar -septic shock, reslove -Aspiration pneumonia, resolved -Acute encephalopathy: currently at new baseline, non verbal, moves right side on command -Hypernatremia: improved with free water -Hypokalemia: replace and monitor closely -ARF vasomotor nephropathy, poa: IV fluids, monitor bmp closely -Dysphagia with aspiration: s/p peg tube -Acute on chronic blood loss anemia w/Coffee-ground material from peg tube: GI is following, treat with ppi iv bid, EGD done 11/18/17 showed 8 mm cratered, 10 mm linear ulcer proximal lesser curvature with erythema but no other bleeding stigmata, gastritis and 4-5 cm hiatal hernia -Advance care planning: full code -Disposition: continue inpatient care, LTAC declined to accept patient without PEG tube. D/W Gen Sx, awaiting abdominal wounds to heal, then new peg tube prior to snf placement KILEY rosenthal daughter, Eugenie [phone], History Interval history: patient is calm and obeys simple commands no events, no agitation, no fevers no seizures, Hospitalist Physical - Physical exam Narrative exam: General appearance: Present:appears chronically ill - EENT Eyes: Present: PERRL - Neck Neck: Present: supple - Respiratory Respiratory effort: labored Respiratory: bilateral: rales - Cardiovascular Rhythm: regular Heart Sounds: Present: S1 & S2 - Extremities Extremities: no ischemia - Abdominal General gastrointestinal: soft, non-tender - Integumentary Integumentary: Present: clear, warm, dry - Psychiatric Psychiatric: non verbal, trached to trache collar - Neurologic Neurologic: left hemiplegia, able to move right side on command, but right side is weak - Constitutional Vitals: Temp Pulse Resp BP Pulse Ox 98.6 F 107 H 32 H 157/91 90 12/22/17 12:00 12/22/17 15:00 12/22/17 15:00 12/22/17 15:00 12/22/17 15:00 General appearance: Present: no acute distress Results - Labs CBC & Chem 7: 12/28/17 04:59 12/30/17 04:46 Labs: Laboratory Last Values WBC 4.1 K/mm3 (4.5-11.0) L 12/22/17 05:07 RBC 3.09 M/mm3 (3.65-5.03) L 12/22/17 05:07 Hgb 7.7 gm/dl (11.8-15.2) L 12/22/17 05:07 Hct 24.3 % (35.5-45.6) L 12/22/17 05:07 MCV 79 fl (84-94) L 12/22/17 05:07 MCH 25 pg (28-32) L 12/22/17 05:07 MCHC 32 % (32-34) 12/22/17 05:07 RDW 17.8 % (13.2-15.2) H 12/22/17 05:07 Plt Count 205 K/mm3 (140-440) 12/22/17 05:07 Lymph % (Auto) 6.8 % (13.4-35.0) L 12/19/17 09:00 [place] % (Auto) Security Solutions Engineer 12/20/17 19:00 Eos % (Auto) 0.2 % (0.0-4.3) 12/19/17 09:00 Baso % (Auto) 0.3 % (0.0-1.8) 12/19/17 09:00 Lymph # 0.8 K/mm3 (1.2-5.4) L 12/19/17 09:00 [place] # 1.6 K/mm3 (0.0-0.8) H 12/19/17 09:00 Eos # 0.0 K/mm3 (0.0-0.4) 12/19/17 09:00 Baso # 0.0 K/mm3 (0.0-0.1) 12/19/17 09:00 Add Manual Diff Complete 12/20/17 19:00 Total Counted 100 12/20/17 19:00 Seg Neutrophils % 80.1 % (40.0-70.0) H 12/19/17 09:00 Seg Neuts % (Manual) 74.0 % (40.0-70.0) H 12/20/17 19:00 Band Neutrophils % 2.0 % 12/20/17 19:00 Lymphocytes % (Manual) 6.0 % (13.4-35.0) L 12/20/17 19:00 Reactive Lymphs % (Man) 0 % 12/20/17 19:00 Monocytes % (Manual) 17.0 % (0.0-7.3) H 12/20/17 19:00 Eosinophils % (Manual) 1.0 % (0.0-4.3) 12/20/17 19:00 Basophils % (Manual) 0 % (0.0-1.8) 12/20/17 19:00 Metamyelocytes % 0 % 12/20/17 19:00 Myelocytes % 0 % 12/20/17 19:00 Promyelocytes % 0 % 12/20/17 19:00 Blast Cells % 0 % 12/20/17 19:00 Nucleated RBC % Not Reportable 12/20/17 19:00 Seg Neutrophils # 10.0 K/mm3 (1.8-7.7) H 12/19/17 09:00 Seg Neutrophils # Man 6.4 K/mm3 (1.8-7.7) 12/20/17 19:00 Band Neutrophils # 0.2 K/mm3 12/20/17 19:00 Lymphocytes # (Manual) 0.5 K/mm3 (1.2-5.4) L 12/20/17 19:00 Abs React Lymphs (Man) 0.0 K/mm3 12/20/17 19:00 Monocytes # (Manual) 1.5 K/mm3 (0.0-0.8) H 12/20/17 19:00 Eosinophils # (Manual) 0.1 K/mm3 (0.0-0.4) 12/20/17 19:00 Basophils # (Manual) 0.0 K/mm3 (0.0-0.1) 12/20/17 19:00 Metamyelocytes # 0.0 K/mm3 12/20/17 19:00 Myelocytes # 0.0 K/mm3 12/20/17 19:00 Promyelocytes # 0.0 K/mm3 12/20/17 19:00 Blast Cells # 0.0 K/mm3 12/20/17 19:00 WBC Morphology Not Reportable 12/20/17 19:00 Hypersegmented Neuts Not Reportable 12/20/17 19:00 Hyposegmented Neuts Not Reportable 12/20/17 19:00 Hypogranular Neuts Not Reportable 12/20/17 19:00 Smudge Cells Not Reportable 12/20/17 19:00 Toxic Granulation Not Reportable 12/20/17 19:00 Toxic Vacuolation Not Reportable 12/20/17 19:00 Dohle Bodies Not Reportable 12/20/17 19:00 Pelger-Huet Anomaly Not Reportable 12/20/17 19:00 Evangelina Rods Not Reportable 12/20/17 19:00 Platelet Estimate Appears normal 12/20/17 19:00 Clumped Platelets Not Reportable 12/20/17 19:00 Plt Clumps, EDTA Not Reportable 12/20/17 19:00 Large Platelets Not Reportable 12/20/17 19:00 Giant Platelets Not Reportable 12/20/17 19:00 Platelet Satelliting Not Reportable 12/20/17 19:00 Plt Morphology Comment Not Reportable 12/20/17 19:00 RBC Morphology Not Reportable 12/20/17 19:00 Dimorphic RBCs Not Reportable 12/20/17 19:00 Polychromasia Not Reportable 12/20/17 19:00 Hypochromasia 2+ 12/20/17 19:00 Poikilocytosis Few 12/20/17 19:00 Anisocytosis 1+ 12/20/17 19:00 Microcytosis 1+ 12/20/17 19:00 Macrocytosis Not Reportable 12/20/17 19:00 Spherocytes Not Reportable 12/20/17 19:00 Pappenheimer Bodies Not Reportable 12/20/17 19:00 Sickle Cells Not Reportable 12/20/17 19:00 Target Cells Not Reportable 12/20/17 19:00 Tear Drop Cells Not Reportable 12/20/17 19:00 Ovalocytes Few 12/20/17 19:00 Stomatocytes 1+ 12/12/17 05:41 Helmet Cells Not Reportable 12/20/17 19:00 [place] Bodies Not Reportable 12/20/17 19:00 Rhododendron Rings Not Reportable 12/20/17 19:00 Lucretia Cells Not Reportable 12/20/17 19:00 Bite Cells Not Reportable 12/20/17 19:00 Crenated Cell Not Reportable 12/20/17 19:00 Elliptocytes Not Reportable 12/20/17 19:00 Acanthocytes (Spur) Not Reportable 12/20/17 19:00 Rouleaux Not Reportable 12/20/17 19:00 Hemoglobin C Crystals Not Reportable 12/20/17 19:00 Schistocytes Not Reportable 12/20/17 19:00 Malaria parasites Not Reportable 12/20/17 19:00 [place] Bodies Not Reportable 12/20/17 19:00 Hem Pathologist Commnt No 12/20/17 19:00 PT 15.4 Sec. (12.2-14.9) H 12/14/17 05:11 INR 1.17 (0.87-1.13) H 12/14/17 05:11 APTT 33.8 Sec. (24.2-36.6) 11/26/17 06:29 POC ABG pH 7.505 (7.35-7.45) H 11/23/17 04:56 POC ABG pCO2 26.3 (35-45) L 11/23/17 04:56 POC ABG pO2 100 (80-105) 11/23/17 04:56 POC ABG HCO3 20.8 11/23/17 04:56 POC ABG Total CO2 22 11/23/17 04:56 POC ABG O2 Sat 98 11/23/17 04:56 POC ABG Base Excess -2 11/23/17 04:56 FiO2 30 % 11/23/17 04:56 Sodium 143 mmol/L (137-145) 12/22/17 05:07 Potassium 2.9 mmol/L (3.6-5.0) L* 12/22/17 05:07 Chloride 104.6 mmol/L (98-107) 12/22/17 05:07 Carbon Dioxide 26 mmol/L (22-30) 12/22/17 05:07 Anion Gap 15 mmol/L 12/22/17 05:07 BUN 43 mg/dL (9-20) H 12/22/17 05:07 Creatinine 1.0 mg/dL (0.8-1.5) 12/22/17 05:07 Estimated GFR > 60 ml/min 12/22/17 05:07 BUN/Creatinine Ratio 43 % 12/22/17 05:07 Glucose 114 mg/dL (75-100) H 12/22/17 05:07 POC Glucose 129 (70-105) H 12/22/17 12:02 Lactic Acid 1.80 mmol/L (0.7-2.0) 11/27/17 04:06 Calcium 7.8 mg/dL (8.4-10.2) L 12/22/17 05:07 Phosphorus 1.60 mg/dL (2.5-4.5) L 12/20/17 19:00 Magnesium 1.60 mg/dL (1.7-2.3) L 12/22/17 05:07 Total Bilirubin 0.70 mg/dL (0.1-1.2) 12/19/17 09:00 AST 54 units/L (5-40) H 12/19/17 09:00 ALT 25 units/L (7-56) 12/19/17 09:00 Alkaline Phosphatase 204 units/L (35-129) H 12/19/17 09:00 Total Creatine Kinase 84 units/L (55-170) 11/12/17 20:03 CK-MB (CK-2) < 1.0 ng/mL (0.0-4.0) 11/12/17 20:03 CK-MB (CK-2) Rel Index 1.1 (0-4) 11/12/17 20:03 Troponin T 0.098 ng/mL (0.00-0.029) H 11/12/17 Unknown C-Reactive Protein 25.70 mg/dL (0.00-1.30) H 11/11/17 23:20 NT-Pro-B Natriuret Pep 792.4 pg/mL (0-900) 11/11/17 23:20 Total Protein 5.8 g/dL (6.3-8.2) L 12/19/17 09:00 Albumin 2.0 g/dL (3.9-5) L 12/19/17 09:00 Albumin/Globulin Ratio 0.5 % 12/19/17 09:00 Triglycerides 86 mg/dL (2-149) 11/11/17 23:20 Cholesterol 82 mg/dL (50-199) 11/11/17 23:20 LDL Cholesterol Direct 42 mg/dL (50-130) L 11/11/17 23:20 HDL Cholesterol 24 mg/dL (40-59) L 11/11/17 23:20 Cholesterol/HDL Ratio 3.41 % 11/11/17 23:20 Lipase 30 units/L (13-60) 11/11/17 23:20 Urine Color Nicole (Yellow) 11/11/17 23:09 Urine Turbidity Cloudy (Clear) 11/11/17 23:09 Urine pH 5.0 (5.0-7.0) 11/11/17 23:09 Ur Specific [place] 1.025 (1.003-1.030) 11/11/17 23:09 Urine Protein 100 mg/dl mg/dL (Negative) 11/11/17 23:09 Urine Glucose (UA) 50 mg/dL (Negative) 11/11/17 23:09 Urine Ketones Neg mg/dL (Negative) 11/11/17 23:09 Urine Blood Neg (Negative) 11/11/17 23:09 Urine Nitrite Neg (Negative) 11/11/17 23:09 Urine Bilirubin Neg (Negative) 11/11/17 23:09 Urine Urobilinogen 4.0 mg/dL (<2.0) 11/11/17 23:09 Ur Leukocyte Esterase Neg (Negative) 11/11/17 23:09 Urine WBC (Auto) 5.0 /HPF (0.0-6.0) 11/11/17 23:09 Urine RBC (Auto) 4.0 /HPF (0.0-6.0) 11/11/17 23:09 Urine Bacteria (Auto) 3+ /HPF (Negative) 11/11/17 23:09 Amorphous Crystals 3+ 11/11/17 23:09 Hyaline Casts 76 /LPF 11/11/17 23:09 Urine Mucus 2+ /HPF 11/11/17 23:09 Urine Total Volume 1350 12/22/17 10:50 Urine Creatinine 55.8 mg/dL (0.1-20.0) H 12/22/17 10:50 Ur Creatinine 24 Hour 0.8 (0.8-2.8) 12/22/17 10:50 Hepatitis A IgM Ab Non-reactive (NonReactive) 11/22/17 19:45 Hep Bs Antigen Non-reactive (Negative) 11/22/17 19:45 Hep B Core IgM Ab Non-reactive (NonReactive) 11/22/17 19:45 Hepatitis C Antibody Reactive (NonReactive) A 11/22/17 19:45 Blood Type A POSITIVE 12/16/17 13:01 Antibody Screen Positive 12/16/17 13:01 SANTANA Antibody Screen Cancelled 12/16/17 13:01 Antibody Identification Cold Antibody 12/16/17 13:01 Crossmatch See Detail 12/16/17 13:01 Crossmatch Prewarmed See Detail 12/16/17 13:01
[2017-12-22] MEDS ORDERED: LOPRESSOR IV ONE (18:50)
[2017-12-22] MEDS ORDERED: TYLENOL FEEDTUBE PRN (20:45)
[2017-12-23 06:16] LABS: Hematocrit 25.5 % (35.5-45.6); Hemoglobin 7.7 gm/dl (11.8-15.2); Mean Corpuscular HGB Conc 30 % (32-34); Mean Corpuscular Volume 82 fl (84-94); Platelet Count 188 K/mm3 (140-440); Red Cell Distribution Width 17.9 % (13.2-15.2)
[2017-12-23 06:30] LABS: BUN/Creatinine Ratio 50; Blood Urea Nitrogen 40 mg/dL (9-20); Calcium 7.9 mg/dL (8.4-10.2); Hemolysis Index 34; Mean Corpuscular Hemoglobin 25 pg (28-32)
[2017-12-23] MEDS ORDERED: POTASSIUM CHLORIDE FEEDTUBE ONE ×2 (06:46→23:58)
[2017-12-23] MEDS: MERREM 1,000 MG in NACL 0.9% 100 ML IV SCH (09:48)
[2017-12-23] MEDS: LOPRESSOR PO SCH ×2 (09:49→23:06)
[2017-12-23] MEDS: PREVACID SOLUTAB FEEDTUBE SCH ×2 (09:50→23:06)
--- NOTE | 2017-12-23 09:53 | Progress Note ---
Assessment and Plan Assessment * Acute kidney injury secondary to ATN --Intermittent HD started on 11/23/17 * Sepsis secondary to peritonitis/PEG malpositioning --RUQ/LUQ drains: Enterobacter, Heather (non albicans) * Aspiration pneumonitis related to above * Anemia * Acute CVA * Carotid artery disease s/p CEA * Encephalopathy Plan: * some evidence of renal recovery * hold dialysis. and follow up 24hr crcl 65ml/min * will have vasc cath removed * replete k and mag today * Abx per ID * prbcs prn * Strict I/O * Avoid potential nephrptoxins * Dose medications for renal function * Replete lytes prn * Avoid nephrotoxins Subjective Date of service: 12/23/17 Principal diagnosis: Acute hypoxic respiratory failure, s/p Trach Interval history: new consult noted, last seen 11/09 with normal renal function Objective - Exam Narrative Exam: Constitutional: lethargic, other (intubated) Eyes: non-icteric ENT: oropharynx moist, other (ETT at 24 cm) Neck: supple, no JVD Ascultation: Bilateral: rhonchi (bilateral LT >>RT) Cardiovascular: regular rate and rhythm, other (tachycardic) Gastrointestinal: normoactive bowel sounds, non-distended Integumentary: normal Extremities: no cyanosis, no edema, other (RT femoral line in place) Neurologic: unable to assess (opens eyes spontaneously but does not follow commands . ) - Vital Signs Vital signs: Vital Signs - 12hr 12/22/17 12/22/17 12/22/17 22:00 22:20 23:00 Temperature Pulse Rate 117 H 116 H 103 H Pulse Rate [ Right From Monitor] Respiratory 19 32 H Rate Blood Pressure 128/88 129/88 157/88 O2 Sat by Pulse 92 93 Oximetry O2 Sat by Pulse Oximetry [ Assessment] 12/22/17 12/22/17 12/23/17 23:32 23:48 00:00 Temperature 99.5 F Pulse Rate 109 H 106 H Pulse Rate [ Right From Monitor] Respiratory 29 H 30 H Rate Blood Pressure 128/88 157/88 O2 Sat by Pulse 95 96 Oximetry O2 Sat by Pulse 98 Oximetry [ Assessment] 12/23/17 12/23/17 12/23/17 01:00 02:00 03:00 Temperature Pulse Rate 110 H 108 H 105 H Pulse Rate [ Right From Monitor] Respiratory Rate Blood Pressure 139/81 149/85 149/85 O2 Sat by Pulse 92 93 95 Oximetry O2 Sat by Pulse Oximetry [ Assessment] 12/23/17 12/23/17 12/23/17 04:00 05:00 06:00 Temperature 99.3 F Pulse Rate 107 H 107 H Pulse Rate [ Right From Monitor] Respiratory 22 25 H Rate Blood Pressure 158/95 158/95 162/88 O2 Sat by Pulse 94 93 93 Oximetry O2 Sat by Pulse Oximetry [ Assessment] 12/23/17 12/23/17 12/23/17 07:00 08:00 09:49 Temperature 98.3 F Pulse Rate 101 H 115 H Pulse Rate [ 106 H Right From Monitor] Respiratory 26 H 31 H Rate Blood Pressure 141/85 148/92 O2 Sat by Pulse 100 92 Oximetry O2 Sat by Pulse Oximetry [ Assessment] - Lab 12/23/17 05:55 12/23/17 05:55 Most recent lab results Calcium 7.9 mg/dL (8.4-10.2) L 12/23/17 05:55 Phosphorus 1.60 mg/dL (2.5-4.5) L 12/20/17 19:00 Magnesium 1.60 mg/dL (1.7-2.3) L 12/23/17 05:55 Urine Creatinine 55.8 mg/dL (0.1-20.0) H 12/22/17 10:50
[2017-12-23] MEDS ORDERED: MAGNESIUM SULFATE 2GM/50ML 2 GM/50 ML BAG IV ONE ×2 (11:00→23:57)
[2017-12-23] MEDS: KCL 10MEQ/100ML 10 MEQ/100 ML BAG IV SCH ×2 (11:37→12:47)
--- NOTE | 2017-12-23 14:24 | Progress Note ---
Assessment and Plan Imp: 1. CVA 2. Hemiparesis 3. Aspiration pneumonitis related to above 4. Sepsis 2/2 peritonitis/PEG mal-position, better 5. DARYA 6. s/p Trach/PEG Rec: 1. Holding HD per renal; K and mag repletion per renal 2. ABX per ID -> Merrem/Diflucan 3. Abdominal drains as per surgery/IR 4. SCDs; GI PPx 5. Cont. Tpiece as tolerated; trach will need to be permanent for secretion clearance 6. Pulm status stable 7. Insurance denies LTAC coverage Long-term prognosis poor; no family present Subjective Date of service: 12/23/17 Principal diagnosis: Acute hypoxic respiratory failure, s/p Trach Interval history: Awake, alert. On 28% Tpiece and tolerating well. Unable to give history. Active Medications Acetaminophen (Tylenol) 650 mg FEEDTUBE Q6H PRN PRN Reason: Pain, Mild (1-3) Last Admin: 12/22/17 20:37 Dose: 650 mg Albumin Human (Al[place]x 25% (Albumin)) 25 gm IV TIM PRN PRN Reason: Hypotension Last Admin: 12/18/17 12:13 Dose: 25 gm Lipase/Protease/Amylase (Pancreaze Dr 10,500 Unit) 1 each FEEDTUBE PRN PRN PRN Reason: For Clogged Feeding Tube Dextrose (D50w (25gm) Syringe) 50 ml IV PRN PRN PRN Reason: Hypoglycemia Hydralazine HCl (Apresoline) 5 mg IV Q6HR PRN PRN Reason: Hypertension Last Admin: 12/17/17 04:14 Dose: 5 mg Hydromorphone HCl (Dilaudid) 1 mg IV Q3H PRN PRN Reason: Pain , Severe (7-10) Last Admin: 12/21/17 00:04 Dose: 1 mg Meropenem 1,000 mg/ Sodium (Chloride) 100 mls @ 100 mls/hr IV Q24HR OSIRIS Stop: 12/23/17 23:59 Last Admin: 12/23/17 09:48 Dose: 100 mls/hr Sodium Chloride (Nacl 0.9%) 100 mls @ 999 mls/hr IV TIM PRN PRN Reason: Hypotension Lansoprazole (Prevacid Solutab) 30 mg FEEDTUBE BID OSIRIS Last Admin: 12/23/17 09:50 Dose: 30 mg Metoprolol Tartrate (Lopressor) 25 mg PO BID [facility] Last Admin: 12/23/17 09:49 Dose: 25 mg Ondansetron HCl (Zofran) 4 mg IV Q3H PRN PRN Reason: Nausea And Vomiting Last Admin: 12/17/17 20:46 Dose: 4 mg Simple Syrup (Simple Syrup) 15 ml FEEDTUBE PRN PRN PRN Reason: Hypoglycemia Simple Syrup (Simple Syrup) 30 ml FEEDTUBE PRN PRN PRN Reason: Hypoglycemia Sodium Bicarbonate (Sodium Bicarbonate) 325 mg FEEDTUBE PRN PRN PRN Reason: For Clogged Feeding Tube Objective Vital Signs - 12hr 12/23/17 12/23/17 12/23/17 03:00 04:00 05:00 Temperature 99.3 F Pulse Rate 105 H 107 H 107 H Pulse Rate [ Right From Monitor] Respiratory 22 Rate Blood Pressure 149/85 158/95 158/95 O2 Sat by Pulse 95 94 93 Oximetry 12/23/17 12/23/17 12/23/17 06:00 07:00 08:00 Temperature 98.3 F Pulse Rate 101 H Pulse Rate [ 106 H Right From Monitor] Respiratory 25 H 26 H 31 H Rate Blood Pressure 162/88 141/85 O2 Sat by Pulse 93 100 92 Oximetry 12/23/17 12/23/17 09:49 12:00 Temperature 98.4 F Pulse Rate 115 H Pulse Rate [ Right From Monitor] Respiratory Rate Blood Pressure 148/92 O2 Sat by Pulse Oximetry Constitutional: no acute distress, alert Eyes: non-icteric ENT: oropharynx moist Neck: supple (trach in position) Effort: normal Ascultation: Bilateral: clear Cardiovascular: regular rate and rhythm Gastrointestinal: normoactive bowel sounds, soft, non-tender, other (drains in place) Integumentary: normal Extremities: no cyanosis, pink and warm, edema (2+ bilateral LE edema) Neurologic: other (L hemiparesis,awake, response to my voice) Psychiatric: other (unable to assess) CBC and BMP: 12/23/17 05:55 12/23/17 05:55 ABG, PT/INR, D-dimer: ABG POC ABG pH 7.505 (7.35-7.45) H 11/23/17 04:56 POC ABG pCO2 26.3 (35-45) L 11/23/17 04:56 POC ABG pO2 100 (80-105) 11/23/17 04:56 POC ABG HCO3 20.8 11/23/17 04:56 POC ABG Total CO2 22 11/23/17 04:56 POC ABG O2 Sat 98 11/23/17 04:56 PT/INR, D-dimer PT 15.4 Sec. (12.2-14.9) H 12/14/17 05:11 INR 1.17 (0.87-1.13) H 12/14/17 05:11 Abnormal lab findings: Abnormal Labs 11/11/17 11/11/17 11/11/17 23:18 23:20 23:20 WBC RBC Hgb 10.4 L Hct 32.6 L D MCV MCH 27 L MCHC RDW 17.4 H Plt Count 105 L Lymph % (Auto) [place] % (Auto) Eos % (Auto) Lymph # [place] # Eos # Seg Neutrophils % Seg Neuts % (Manual) Lymphocytes % (Manual) 8.0 L Monocytes % (Manual) Eosinophils % (Manual) Nucleated RBC % 1.0 H Seg Neutrophils # Seg Neutrophils # Man Lymphocytes # (Manual) 0.7 L Monocytes # (Manual) Eosinophils # (Manual) PT INR POC ABG pH 7.550 H POC ABG pCO2 31.6 L POC ABG pO2 Sodium 146 H Potassium Chloride Carbon Dioxide BUN 26 H Creatinine 1.7 H D Glucose 133 H POC Glucose Lactic Acid Calcium Phosphorus Magnesium AST ALT Alkaline Phosphatase Troponin T 0.117 H* C-Reactive Protein Total Protein Albumin 2.5 L LDL Cholesterol Direct 42 L HDL Cholesterol 24 L Urine Creatinine Hepatitis C Antibody Crossmatch Crossmatch P[place]armed 11/11/17 11/12/17 11/12/17 23:20 00:23 00:23 WBC RBC Hgb Hct MCV MCH MCHC RDW Plt Count Lymph % (Auto) [place] % (Auto) Eos % (Auto) Lymph # [place] # Eos # Seg Neutrophils % Seg Neuts % (Manual) Lymphocytes % (Manual) Monocytes % (Manual) Eosinophils % (Manual) Nucleated RBC % Seg Neutrophils # Seg Neutrophils # Man Lymphocytes # (Manual) Monocytes # (Manual) Eosinophils # (Manual) PT 16.7 H INR 1.28 H POC ABG pH POC ABG pCO2 POC ABG pO2 Sodium Potassium Chloride Carbon Dioxide BUN Creatinine Glucose POC Glucose Lactic Acid 3.20 H* Calcium Phosphorus Magnesium AST ALT Alkaline Phosphatase Troponin T C-Reactive Protein 25.70 H Total Protein Albumin LDL Cholesterol Direct HDL Cholesterol Urine Creatinine Hepatitis C Antibody Crossmatch Crossmatch P[place]armed 11/12/17 11/12/17 11/12/17 00:46 01:27 01:27 WBC RBC Hgb Hct MCV MCH MCHC RDW Plt Count Lymph % (Auto) [place] % (Auto) Eos % (Auto) Lymph # [place] # Eos # Seg Neutrophils % Seg Neuts % (Manual) Lymphocytes % (Manual) Monocytes % (Manual) Eosinophils % (Manual) Nucleated RBC % Seg Neutrophils # Seg Neutrophils # Man Lymphocytes # (Manual) Monocytes # (Manual) Eosinophils # (Manual) PT INR POC ABG pH 7.495 H POC ABG pCO2 32.0 L POC ABG pO2 64 L Sodium Potassium Chloride Carbon Dioxide BUN Creatinine Glucose POC Glucose Lactic Acid 3.70 H* Calcium Phosphorus Magnesium AST ALT Alkaline Phosphatase Troponin T 0.096 H C-Reactive Protein Total Protein Albumin LDL Cholesterol Direct HDL Cholesterol Urine Creatinine Hepatitis C Antibody Crossmatch Crossmatch P[place]armed 11/12/17 11/12/17 11/12/17 03:21 04:50 06:27 WBC RBC Hgb Hct MCV MCH MCHC RDW Plt Count Lymph % (Auto) [place] % (Auto) Eos % (Auto) Lymph # [place] # Eos # Seg Neutrophils % Seg Neuts % (Manual) Lymphocytes % (Manual) Monocytes % (Manual) Eosinophils % (Manual) Nucleated RBC % Seg Neutrophils # Seg Neutrophils # Man Lymphocytes # (Manual) Monocytes # (Manual) Eosinophils # (Manual) PT INR POC ABG pH POC ABG pCO2 POC ABG pO2 109 H Sodium Potassium Chloride Carbon Dioxide BUN Creatinine Glucose POC Glucose Lactic Acid 3.80 H* 2.20 H* Calcium Phosphorus Magnesium AST ALT Alkaline Phosphatase Troponin T C-Reactive Protein Total Protein Albumin LDL Cholesterol Direct HDL Cholesterol Urine Creatinine Hepatitis C Antibody Crossmatch Crossmatch P[place]armed 11/12/17 11/12/17 11/12/17 09:24 09:24 09:24 WBC RBC Hgb 10.4 L Hct 33.4 L MCV MCH MCHC RDW Plt Count Lymph % (Auto) [place] % (Auto) Eos % (Auto) Lymph # [place] # Eos # Seg Neutrophils % Seg Neuts % (Manual) Lymphocytes % (Manual) Monocytes % (Manual) Eosinophils % (Manual) Nucleated RBC % Seg Neutrophils # Seg Neutrophils # Man Lymphocytes # (Manual) Monocytes # (Manual) Eosinophils # (Manual) PT INR POC ABG pH POC ABG pCO2 POC ABG pO2 Sodium Potassium Chloride Carbon Dioxide BUN Creatinine Glucose POC Glucose Lactic Acid 2.90 H* Calcium Phosphorus Magnesium AST ALT Alkaline Phosphatase Troponin T 0.091 H C-Reactive Protein Total Protein Albumin LDL Cholesterol Direct HDL Cholesterol Urine Creatinine Hepatitis C Antibody Crossmatch Crossmatch P[place]armed 11/12/17 11/12/17 11/12/17 12:56 20:03 Unknown WBC RBC Hgb Hct MCV MCH MCHC RDW Plt Count Lymph % (Auto) [place] % (Auto) Eos % (Auto) Lymph # [place] # Eos # Seg Neutrophils % Seg Neuts % (Manual) Lymphocytes % (Manual) Monocytes % (Manual) Eosinophils % (Manual) Nucleated RBC % Seg Neutrophils # Seg Neutrophils # Man Lymphocytes # (Manual) Monocytes # (Manual) Eosinophils # (Manual) PT INR POC ABG pH POC ABG pCO2 POC ABG pO2 Sodium Potassium Chloride Carbon Dioxide BUN Creatinine Glucose POC Glucose Lactic Acid 3.60 H* Calcium Phosphorus Magnesium AST ALT Alkaline Phosphatase Troponin T 0.102 H* 0.156 H* D C-Reactive Protein Total Protein Albumin LDL Cholesterol Direct HDL Cholesterol Urine Creatinine Hepatitis C Antibody Crossmatch Crossmatch P[place]armed 11/12/17 11/13/17 11/13/17 Unknown 04:50 04:50 WBC 12.2 H RBC 3.51 L Hgb 9.3 L Hct 30.1 L MCV MCH 26 L MCHC 31 L RDW 18.0 H Plt Count 128 L Lymph % (Auto) 8.6 L [place] % (Auto) 11.1 H Eos % (Auto) Lymph # 1.1 L [place] # 1.4 H Eos # Seg Neutrophils % 80.1 H Seg Neuts % (Manual) Lymphocytes % (Manual) Monocytes % (Manual) Eosinophils % (Manual) Nucleated RBC % Seg Neutrophils # 9.8 H Seg Neutrophils # Man Lymphocytes # (Manual) Monocytes # (Manual) Eosinophils # (Manual) PT INR POC ABG pH POC ABG pCO2 POC ABG pO2 Sodium 149 H Potassium 5.1 H Chloride 114.4 H Carbon Dioxide 18 L BUN 52 H Creatinine 3.3 H D Glucose 129 H POC Glucose Lactic Acid Calcium 7.9 L Phosphorus Magnesium AST ALT Alkaline Phosphatase Troponin T 0.098 H C-Reactive Protein Total Protein Albumin LDL Cholesterol Direct HDL Cholesterol Urine Creatinine Hepatitis C Antibody Crossmatch Crossmatch P[place]armed 11/13/17 11/13/17 11/14/17 04:51 09:34 04:21 WBC RBC Hgb Hct MCV MCH MCHC RDW Plt Count Lymph % (Auto) [place] % (Auto) Eos % (Auto) Lymph # [place] # Eos # Seg Neutrophils % Seg Neuts % (Manual) Lymphocytes % (Manual) Monocytes % (Manual) Eosinophils % (Manual) Nucleated RBC % Seg Neutrophils # Seg Neutrophils # Man Lymphocytes # (Manual) Monocytes # (Manual) Eosinophils # (Manual) PT INR POC ABG pH POC ABG pCO2 30.1 L 29.8 L POC ABG pO2 135 H Sodium Potassium Chloride Carbon Dioxide BUN Creatinine Glucose POC Glucose Lactic Acid 2.10 H* Calcium Phosphorus Magnesium AST ALT Alkaline Phosphatase Troponin T C-Reactive Protein Total Protein Albumin LDL Cholesterol Direct HDL Cholesterol Urine Creatinine Hepatitis C Antibody Crossmatch Crossmatch P[place]armed 11/15/17 11/15/17 11/16/17 04:52 15:50 05:17 WBC RBC Hgb Hct MCV MCH MCHC RDW Plt Count Lymph % (Auto) [place] % (Auto) Eos % (Auto) Lymph # [place] # Eos # Seg Neutrophils % Seg Neuts % (Manual) Lymphocytes % (Manual) Monocytes % (Manual) Eosinophils % (Manual) Nucleated RBC % Seg Neutrophils # Seg Neutrophils # Man Lymphocytes # (Manual) Monocytes # (Manual) Eosinophils # (Manual) PT INR POC ABG pH POC ABG pCO2 29.5 L 31.5 L POC ABG pO2 115 H 122 H Sodium 154 H Potassium Chloride 117.9 H Carbon Dioxide 19 L BUN 87 H Creatinine 4.1 H Glucose POC Glucose Lactic Acid Calcium 8.1 L Phosphorus Magnesium AST ALT Alkaline Phosphatase Troponin T C-Reactive Protein Total Protein Albumin LDL Cholesterol Direct HDL Cholesterol Urine Creatinine Hepatitis C Antibody Crossmatch Crossmatch P[place]armed 11/16/17 11/17/17 11/17/17 16:37 04:07 10:00 WBC 14.7 H RBC 3.23 L Hgb 8.3 L Hct 28.1 L MCV MCH 26 L MCHC 30 L RDW 18.8 H Plt Count Lymph % (Auto) [place] % (Auto) Eos % (Auto) Lymph # [place] # Eos # Seg Neutrophils % Seg Neuts % (Manual) 75 H Lymphocytes % (Manual) 8.0 L Monocytes % (Manual) Eosinophils % (Manual) Nucleated RBC % 1.0 H Seg Neutrophils # Seg Neutrophils # Man 11.0 H Lymphocytes # (Manual) Monocytes # (Manual) 0.9 H Eosinophils # (Manual) PT INR POC ABG pH POC ABG pCO2 POC ABG pO2 Sodium 153 H 155 H Potassium Chloride 117.3 H 119.4 H Carbon Dioxide 19 L 20 L BUN 90 H 89 H Creatinine 3.9 H 3.6 H Glucose 111 H 115 H POC Glucose Lactic Acid Calcium 8.1 L 8.0 L Phosphorus Magnesium AST ALT Alkaline Phosphatase Troponin T C-Reactive Protein Total Protein Albumin LDL Cholesterol Direct HDL Cholesterol Urine Creatinine Hepatitis C Antibody Crossmatch Crossmatch P[place]armed 11/18/17 11/18/17 11/18/17 04:34 04:34 04:34 WBC 15.5 H RBC 3.13 L Hgb 8.1 L Hct 26.3 L MCV MCH 26 L MCHC 31 L RDW 18.6 H Plt Count Lymph % (Auto) [place] % (Auto) Eos % (Auto) Lymph # [place] # Eos # Seg Neutrophils % Seg Neuts % (Manual) 81.0 H Lymphocytes % (Manual) 7.0 L Monocytes % (Manual) Eosinophils % (Manual) Nucleated RBC % 1.0 H Seg Neutrophils # Seg Neutrophils # Man 12.6 H Lymphocytes # (Manual) 1.1 L Monocytes # (Manual) Eosinophils # (Manual) PT 16.7 H INR 1.30 H POC ABG pH POC ABG pCO2 POC ABG pO2 Sodium 155 H Potassium 3.2 L Chloride 121.0 H Carbon Dioxide 20 L BUN 74 H Creatinine 2.9 H Glucose 126 H POC Glucose Lactic Acid Calcium 7.9 L Phosphorus Magnesium AST ALT Alkaline Phosphatase Troponin T C-Reactive Protein Total Protein Albumin LDL Cholesterol Direct HDL Cholesterol Urine Creatinine Hepatitis C Antibody Crossmatch Crossmatch P[place]armed 11/19/17 11/19/17 11/20/17 04:44 04:44 00:38 WBC 19.0 H 22.2 H RBC 3.20 L 3.17 L Hgb 8.4 L 7.9 L Hct 27.9 L 26.4 L MCV 83 L MCH 26 L 25 L MCHC 30 L 30 L RDW 19.1 H 18.9 H Plt Count Lymph % (Auto) [place] % (Auto) Eos % (Auto) Lymph # [place] # Eos # Seg Neutrophils % Seg Neuts % (Manual) 83.0 H Lymphocytes % (Manual) 3.0 L Monocytes % (Manual) 9.0 H Eosinophils % (Manual) Nucleated RBC % Seg Neutrophils # Seg Neutrophils # Man 18.4 H Lymphocytes # (Manual) 0.7 L Monocytes # (Manual) 2.0 H Eosinophils # (Manual) PT INR POC ABG pH POC ABG pCO2 POC ABG pO2 Sodium 152 H Potassium Chloride 117.1 H Carbon Dioxide 17 L BUN 66 H Creatinine 2.8 H Glucose 119 H POC Glucose Lactic Acid Calcium 7.8 L Phosphorus Magnesium 2.70 H AST ALT Alkaline Phosphatase Troponin T C-Reactive Protein Total Protein Albumin LDL Cholesterol Direct HDL Cholesterol Urine Creatinine Hepatitis C Antibody Crossmatch Crossmatch P[place]armed 11/20/17 11/20/17 11/20/17 03:29 04:48 13:38 WBC RBC Hgb Hct MCV MCH MCHC RDW Plt Count Lymph % (Auto) [place] % (Auto) Eos % (Auto) Lymph # [place] # Eos # Seg Neutrophils % Seg Neuts % (Manual) Lymphocytes % (Manual) Monocytes % (Manual) Eosinophils % (Manual) Nucleated RBC % Seg Neutrophils # Seg Neutrophils # Man Lymphocytes # (Manual) Monocytes # (Manual) Eosinophils # (Manual) PT INR POC ABG pH POC ABG pCO2 29.4 L POC ABG pO2 Sodium 148 H Potassium 3.4 L Chloride 113.7 H Carbon Dioxide 18 L BUN 59 H Creatinine 2.7 H Glucose 113 H POC Glucose 128 H Lactic Acid Calcium 7.8 L Phosphorus Magnesium AST ALT Alkaline Phosphatase Troponin T C-Reactive Protein Total Protein Albumin LDL Cholesterol Direct HDL Cholesterol Urine Creatinine Hepatitis C Antibody Crossmatch Crossmatch [place]armed 11/20/17 11/20/17 11/21/17 17:38 23:40 00:13 WBC RBC Hgb 8.4 L Hct 28.0 L MCV MCH MCHC RDW Plt Count Lymph % (Auto) [place] % (Auto) Eos % (Auto) Lymph # [place] # Eos # Seg Neutrophils % Seg Neuts % (Manual) Lymphocytes % (Manual) Monocytes % (Manual) Eosinophils % (Manual) Nucleated RBC % Seg Neutrophils # Seg Neutrophils # Man Lymphocytes # (Manual) Monocytes # (Manual) Eosinophils # (Manual) PT INR POC ABG pH POC ABG pCO2 POC ABG pO2 Sodium Potassium Chloride Carbon Dioxide BUN Creatinine Glucose POC Glucose 115 H 145 H Lactic Acid Calcium Phosphorus Magnesium AST ALT Alkaline Phosphatase Troponin T C-Reactive Protein Total Protein Albumin LDL Cholesterol Direct HDL Cholesterol Urine Creatinine Hepatitis C Antibody Crossmatch Crossmatch [place]armed 11/21/17 11/21/17 11/21/17 04:30 04:30 04:58 WBC 21.0 H RBC Hgb 9.6 L Hct 32.7 L MCV MCH 25 L MCHC 29 L RDW 19.7 H Plt Count 746 H Lymph % (Auto) [place] % (Auto) Eos % (Auto) Lymph # [place] # Eos # Seg Neutrophils % Seg Neuts % (Manual) Lymphocytes % (Manual) Monocytes % (Manual) Eosinophils % (Manual) Nucleated RBC % Seg Neutrophils # Seg Neutrophils # Man Lymphocytes # (Manual) Monocytes # (Manual) Eosinophils # (Manual) PT INR POC ABG pH POC ABG pCO2 POC ABG pO2 Sodium Potassium Chloride 109.4 H Carbon Dioxide 14 L BUN 59 H Creatinine 3.0 H Glucose 137 H POC Glucose 132 H Lactic Acid Calcium 7.6 L Phosphorus Magnesium AST ALT Alkaline Phosphatase Troponin T C-Reactive Protein Total Protein Albumin LDL Cholesterol Direct HDL Cholesterol Urine Creatinine Hepatitis C Antibody Crossmatch Crossmatch [place]armed 11/21/17 11/21/17 11/21/17 06:30 13:43 14:17 WBC 38.2 H RBC Hgb 9.0 L Hct 32.3 L MCV MCH 25 L MCHC 28 L RDW 20.0 H Plt Count 766 H Lymph % (Auto) [place] % (Auto) Eos % (Auto) Lymph # [place] # Eos # Seg Neutrophils % Seg Neuts % (Manual) 85.0 H Lymphocytes % (Manual) 1.0 L Monocytes % (Manual) Eosinophils % (Manual) Nucleated RBC % 2.0 H Seg Neutrophils # Seg Neutrophils # Man 32.5 H Lymphocytes # (Manual) 0.4 L Monocytes # (Manual) 2.3 H Eosinophils # (Manual) PT INR POC ABG pH POC ABG pCO2 18.6 L POC ABG pO2 121 H Sodium 146 H Potassium Chloride 110.9 H Carbon Dioxide 11 L BUN 62 H Creatinine 4.0 H Glucose 64 L POC Glucose Lactic Acid Calcium 7.6 L Phosphorus Magnesium AST ALT Alkaline Phosphatase Troponin T C-Reactive Protein Total Protein Albumin LDL Cholesterol Direct HDL Cholesterol Urine Creatinine Hepatitis C Antibody Crossmatch Crossmatch [place]armed 11/21/17 11/21/17 11/22/17 14:17 19:09 00:05 WBC RBC Hgb Hct MCV MCH MCHC RDW Plt Count Lymph % (Auto) [place] % (Auto) Eos % (Auto) Lymph # [place] # Eos # Seg Neutrophils % Seg Neuts % (Manual) Lymphocytes % (Manual) Monocytes % (Manual) Eosinophils % (Manual) Nucleated RBC % Seg Neutrophils # Seg Neutrophils # Man Lymphocytes # (Manual) Monocytes # (Manual) Eosinophils # (Manual) PT INR POC ABG pH POC ABG pCO2 20.0 L POC ABG pO2 Sodium Potassium Chloride Carbon Dioxide BUN Creatinine Glucose POC Glucose 127 H Lactic Acid 7.70 H* Calcium Phosphorus Magnesium AST ALT Alkaline Phosphatase Troponin T C-Reactive Protein Total Protein Albumin LDL Cholesterol Direct HDL Cholesterol Urine Creatinine Hepatitis C Antibody Crossmatch Crossmatch [place]armed 11/22/17 11/22/17 11/22/17 03:53 06:00 07:25 WBC RBC Hgb Hct MCV MCH MCHC RDW Plt Count Lymph % (Auto) [place] % (Auto) Eos % (Auto) Lymph # [place] # Eos # Seg Neutrophils % Seg Neuts % (Manual) Lymphocytes % (Manual) Monocytes % (Manual) Eosinophils % (Manual) Nucleated RBC % Seg Neutrophils # Seg Neutrophils # Man Lymphocytes # (Manual) Monocytes # (Manual) Eosinophils # (Manual) PT INR POC ABG pH POC ABG pCO2 22.2 L POC ABG pO2 Sodium 147 H Potassium Chloride 111.9 H Carbon Dioxide 16 L BUN 72 H Creatinine 5.1 H Glucose 181 H POC Glucose 180 H Lactic Acid Calcium 7.1 L Phosphorus Magnesium AST ALT Alkaline Phosphatase Troponin T C-Reactive Protein Total Protein Albumin LDL Cholesterol Direct HDL Cholesterol Urine Creatinine Hepatitis C Antibody Crossmatch Crossmatch [place] 11/22/17 11/22/17 11/22/17 07:25 07:25 12:05 WBC 31.4 H RBC 3.22 L Hgb 8.0 L Hct 26.7 L MCV 83 L MCH 25 L MCHC 30 L RDW 19.4 H Plt Count 602 H Lymph % (Auto) [place] % (Auto) Eos % (Auto) Lymph # [place] # Eos # Seg Neutrophils % Seg Neuts % (Manual) Lymphocytes % (Manual) Monocytes % (Manual) Eosinophils % (Manual) Nucleated RBC % Seg Neutrophils # Seg Neutrophils # Man Lymphocytes # (Manual) Monocytes # (Manual) Eosinophils # (Manual) PT INR POC ABG pH POC ABG pCO2 POC ABG pO2 Sodium Potassium Chloride Carbon Dioxide BUN Creatinine Glucose POC Glucose 182 H Lactic Acid 5.00 H* Calcium Phosphorus Magnesium AST ALT Alkaline Phosphatase Troponin T C-Reactive Protein Total Protein Albumin LDL Cholesterol Direct HDL Cholesterol Urine Creatinine Hepatitis C Antibody Crossmatch Crossmatch [place] 11/22/17 11/23/17 11/23/17 19:45 01:28 04:56 WBC RBC Hgb Hct MCV MCH MCHC RDW Plt Count Lymph % (Auto) [place] % (Auto) Eos % (Auto) Lymph # [place] # Eos # Seg Neutrophils % Seg Neuts % (Manual) Lymphocytes % (Manual) Monocytes % (Manual) Eosinophils % (Manual) Nucleated RBC % Seg Neutrophils # Seg Neutrophils # Man Lymphocytes # (Manual) Monocytes # (Manual) Eosinophils # (Manual) PT INR POC ABG pH 7.505 H POC ABG pCO2 26.3 L POC ABG pO2 Sodium Potassium Chloride Carbon Dioxide BUN Creatinine Glucose POC Glucose 165 H Lactic Acid Calcium Phosphorus Magnesium AST ALT Alkaline Phosphatase Troponin T C-Reactive Protein Total Protein Albumin LDL Cholesterol Direct HDL Cholesterol Urine Creatinine Hepatitis C Antibody Reactive A Crossmatch Crossmatch [place]armed 11/23/17 11/23/17 11/23/17 07:05 12:32 17:53 WBC RBC Hgb Hct MCV MCH MCHC RDW Plt Count Lymph % (Auto) [place] % (Auto) Eos % (Auto) Lymph # [place] # Eos # Seg Neutrophils % Seg Neuts % (Manual) Lymphocytes % (Manual) Monocytes % (Manual) Eosinophils % (Manual) Nucleated RBC % Seg Neutrophils # Seg Neutrophils # Man Lymphocytes # (Manual) Monocytes # (Manual) Eosinophils # (Manual) PT INR POC ABG pH POC ABG pCO2 POC ABG pO2 Sodium Potassium Chloride Carbon Dioxide 18 L BUN 61 H Creatinine 4.2 H Glucose 153 H POC Glucose 138 H 173 H Lactic Acid Calcium 7.5 L Phosphorus Magnesium AST ALT Alkaline Phosphatase Troponin T C-Reactive Protein Total Protein Albumin LDL Cholesterol Direct HDL Cholesterol Urine Creatinine Hepatitis C Antibody Crossmatch Crossmatch [place] 11/23/17 11/24/17 11/24/17 23:41 05:42 05:42 WBC 21.5 H RBC 2.48 L Hgb 6.2 L Hct 20.3 L D MCV 82 L MCH 25 L MCHC 31 L RDW 18.9 H Plt Count Lymph % (Auto) [place] % (Auto) Eos % (Auto) Lymph # [place] # Eos # Seg Neutrophils % Seg Neuts % (Manual) 94.0 H Lymphocytes % (Manual) 3.0 L Monocytes % (Manual) Eosinophils % (Manual) Nucleated RBC % Seg Neutrophils # Seg Neutrophils # Man 20.2 H Lymphocytes # (Manual) 0.6 L Monocytes # (Manual) Eosinophils # (Manual) PT INR POC ABG pH POC ABG pCO2 POC ABG pO2 Sodium 149 H Potassium 2.8 L* D Chloride 113.9 H Carbon Dioxide 19 L BUN 31 H Creatinine 2.3 H Glucose 103 H POC Glucose 133 H Lactic Acid Calcium 5.3 L* D Phosphorus Magnesium 1.30 L AST ALT Alkaline Phosphatase Troponin T C-Reactive Protein Total Protein Albumin LDL Cholesterol Direct HDL Cholesterol Urine Creatinine Hepatitis C Antibody Crossmatch Crossmatch [place] 11/24/17 11/24/17 11/24/17 05:42 08:27 08:27 WBC RBC Hgb Hct MCV MCH MCHC RDW Plt Count Lymph % (Auto) [place] % (Auto) Eos % (Auto) Lymph # [place] # Eos # Seg Neutrophils % Seg Neuts % (Manual) Lymphocytes % (Manual) Monocytes % (Manual) Eosinophils % (Manual) Nucleated RBC % Seg Neutrophils # Seg Neutrophils # Man Lymphocytes # (Manual) Monocytes # (Manual) Eosinophils # (Manual) PT INR POC ABG pH POC ABG pCO2 POC ABG pO2 Sodium Potassium Chloride Carbon Dioxide BUN Creatinine Glucose POC Glucose Lactic Acid 5.40 H* 5.20 H* Calcium Phosphorus Magnesium AST ALT Alkaline Phosphatase Troponin T C-Reactive Protein Total Protein Albumin LDL Cholesterol Direct HDL Cholesterol Urine Creatinine Hepatitis C Antibody Crossmatch See Detail Crossmatch P[facility]armed 11/24/17 11/24/17 11/24/17 12:13 17:22 21:53 WBC 23.0 H RBC 3.32 L Hgb 8.8 L Hct 27.1 L D MCV 82 L MCH 26 L MCHC RDW 17.3 H Plt Count Lymph % (Auto) [place] % (Auto) Eos % (Auto) Lymph # [place] # Eos # Seg Neutrophils % Seg Neuts % (Manual) Lymphocytes % (Manual) Monocytes % (Manual) Eosinophils % (Manual) Nucleated RBC % Seg Neutrophils # Seg Neutrophils # Man Lymphocytes # (Manual) Monocytes # (Manual) Eosinophils # (Manual) PT INR POC ABG pH POC ABG pCO2 POC ABG pO2 Sodium Potassium Chloride Carbon Dioxide BUN Creatinine Glucose POC Glucose 138 H 180 H Lactic Acid Calcium Phosphorus Magnesium AST ALT Alkaline Phosphatase Troponin T C-Reactive Protein Total Protein Albumin LDL Cholesterol Direct HDL Cholesterol Urine Creatinine Hepatitis C Antibody Crossmatch Crossmatch [place] 11/24/17 11/24/17 11/25/17 21:53 23:28 04:19 WBC RBC Hgb Hct MCV MCH MCHC RDW Plt Count Lymph % (Auto) [place] % (Auto) Eos % (Auto) Lymph # [place] # Eos # Seg Neutrophils % Seg Neuts % (Manual) Lymphocytes % (Manual) Monocytes % (Manual) Eosinophils % (Manual) Nucleated RBC % Seg Neutrophils # Seg Neutrophils # Man Lymphocytes # (Manual) Monocytes # (Manual) Eosinophils # (Manual) PT INR POC ABG pH POC ABG pCO2 POC ABG pO2 Sodium Potassium Chloride 96.3 L Carbon Dioxide BUN 28 H 31 H Creatinine 2.3 H 2.6 H Glucose 125 H 101 H POC Glucose 111 H Lactic Acid Calcium 7.5 L D 7.4 L Phosphorus Magnesium AST 170 H ALT 179 H Alkaline Phosphatase 175 H Troponin T C-Reactive Protein Total Protein 5.5 L Albumin 1.8 L LDL Cholesterol Direct HDL Cholesterol Urine Creatinine Hepatitis C Antibody Crossmatch [facility] 11/25/17 11/25/17 11/26/17 04:19 04:19 06:29 WBC 22.5 H RBC 3.48 L Hgb 9.1 L Hct 28.3 L MCV 81 L MCH 26 L MCHC RDW 17.4 H Plt Count Lymph % (Auto) [place] % (Auto) Eos % (Auto) Lymph # [place] # Eos # Seg Neutrophils % Seg Neuts % (Manual) Lymphocytes % (Manual) Monocytes % (Manual) Eosinophils % (Manual) Nucleated RBC % Seg Neutrophils # Seg Neutrophils # Man Lymphocytes # (Manual) Monocytes # (Manual) Eosinophils # (Manual) PT 23.6 H INR 1.96 H POC ABG pH POC ABG pCO2 POC ABG pO2 Sodium Potassium Chloride Carbon Dioxide BUN 31 H Creatinine 2.6 H Glucose 101 H POC Glucose Lactic Acid Calcium 7.5 L Phosphorus Magnesium AST ALT Alkaline Phosphatase Troponin T C-Reactive Protein Total Protein Albumin LDL Cholesterol Direct HDL Cholesterol Urine Creatinine Hepatitis C Antibody Crossmatch [facility] 11/26/17 11/27/17 11/27/17 06:34 04:06 04:06 WBC 11.3 H RBC 3.13 L Hgb 8.4 L Hct 25.8 L MCV 82 L MCH 27 L MCHC RDW 17.7 H Plt Count Lymph % (Auto) 7.4 L [place] % (Auto) Eos % (Auto) Lymph # 0.8 L [place] # Eos # Seg Neutrophils % 83.7 H Seg Neuts % (Manual) Lymphocytes % (Manual) Monocytes % (Manual) Eosinophils % (Manual) Nucleated RBC % Seg Neutrophils # 9.5 H Seg Neutrophils # Man Lymphocytes # (Manual) Monocytes # (Manual) Eosinophils # (Manual) PT INR POC ABG pH POC ABG pCO2 POC ABG pO2 Sodium Potassium Chloride 97.9 L Carbon Dioxide BUN 43 H 29 H Creatinine 3.5 H 2.9 H Glucose POC Glucose Lactic Acid Calcium 7.5 L 8.1 L Phosphorus Magnesium AST ALT Alkaline Phosphatase Troponin T C-Reactive Protein Total Protein Albumin LDL Cholesterol Direct HDL Cholesterol Urine Creatinine Hepatitis C Antibody Crossmatch [facility] 11/27/17 11/28/17 11/28/17 18:11 00:16 03:50 WBC RBC Hgb Hct MCV MCH MCHC RDW Plt Count Lymph % (Auto) [place] % (Auto) Eos % (Auto) Lymph # [place] # Eos # Seg Neutrophils % Seg Neuts % (Manual) Lymphocytes % (Manual) Monocytes % (Manual) Eosinophils % (Manual) Nucleated RBC % Seg Neutrophils # Seg Neutrophils # Man Lymphocytes # (Manual) Monocytes # (Manual) Eosinophils # (Manual) PT INR POC ABG pH POC ABG pCO2 POC ABG pO2 Sodium Potassium Chloride Carbon Dioxide BUN 39 H Creatinine 4.1 H Glucose 108 H POC Glucose 110 H 124 H Lactic Acid Calcium 7.9 L Phosphorus Magnesium AST ALT Alkaline Phosphatase Troponin T C-Reactive Protein Total Protein Albumin LDL Cholesterol Direct HDL Cholesterol Urine Creatinine Hepatitis C Antibody Crossmatch [facility] 11/28/17 11/28/17 11/28/17 05:03 11:36 17:42 WBC RBC Hgb Hct MCV MCH MCHC RDW Plt Count Lymph % (Auto) [place] % (Auto) Eos % (Auto) Lymph # [place] # Eos # Seg Neutrophils % Seg Neuts % (Manual) Lymphocytes % (Manual) Monocytes % (Manual) Eosinophils % (Manual) Nucleated RBC % Seg Neutrophils # Seg Neutrophils # Man Lymphocytes # (Manual) Monocytes # (Manual) Eosinophils # (Manual) PT INR POC ABG pH POC ABG pCO2 POC ABG pO2 Sodium Potassium Chloride Carbon Dioxide BUN Creatinine Glucose POC Glucose 134 H 114 H 119 H Lactic Acid Calcium Phosphorus Magnesium AST ALT Alkaline Phosphatase Troponin T C-Reactive Protein Total Protein Albumin LDL Cholesterol Direct HDL Cholesterol Urine Creatinine Hepatitis C Antibody Crossmatch [facility] 11/29/17 11/29/17 11/29/17 00:22 05:25 05:25 WBC 12.3 H RBC 3.34 L Hgb 8.6 L Hct 27.3 L MCV 82 L MCH 26 L MCHC RDW 18.5 H Plt Count Lymph % (Auto) 3.7 L [place] % (Auto) 7.7 H Eos % (Auto) Lymph # 0.5 L [place] # 1.0 H Eos # Seg Neutrophils % 86.5 H Seg Neuts % (Manual) Lymphocytes % (Manual) Monocytes % (Manual) Eosinophils % (Manual) Nucleated RBC % Seg Neutrophils # 10.7 H Seg Neutrophils # Man Lymphocytes # (Manual) Monocytes # (Manual) Eosinophils # (Manual) PT INR POC ABG pH POC ABG pCO2 POC ABG pO2 Sodium Potassium Chloride Carbon Dioxide BUN 29 H Creatinine 3.5 H Glucose 109 H POC Glucose 137 H Lactic Acid Calcium 7.8 L Phosphorus Magnesium AST ALT Alkaline Phosphatase Troponin T C-Reactive Protein Total Protein Albumin LDL Cholesterol Direct HDL Cholesterol Urine Creatinine Hepatitis C Antibody Crossmatch [facility] 11/29/17 11/30/17 11/30/17 05:26 00:26 04:17 WBC RBC Hgb Hct MCV MCH MCHC RDW Plt Count Lymph % (Auto) [place] % (Auto) Eos % (Auto) Lymph # [place] # Eos # Seg Neutrophils % Seg Neuts % (Manual) Lymphocytes % (Manual) Monocytes % (Manual) Eosinophils % (Manual) Nucleated RBC % Seg Neutrophils # Seg Neutrophils # Man Lymphocytes # (Manual) Monocytes # (Manual) Eosinophils # (Manual) PT INR POC ABG pH POC ABG pCO2 POC ABG pO2 Sodium Potassium Chloride Carbon Dioxide BUN 38 H Creatinine 4.3 H Glucose 109 H POC Glucose 129 H 152 H Lactic Acid Calcium 7.8 L Phosphorus Magnesium AST ALT Alkaline Phosphatase Troponin T C-Reactive Protein Total Protein Albumin LDL Cholesterol Direct HDL Cholesterol Urine Creatinine Hepatitis C Antibody Crossmatch [facility] 11/30/17 11/30/17 11/30/17 12:17 16:23 23:35 WBC RBC Hgb Hct MCV MCH MCHC RDW Plt Count Lymph % (Auto) [place] % (Auto) Eos % (Auto) Lymph # [place] # Eos # Seg Neutrophils % Seg Neuts % (Manual) Lymphocytes % (Manual) Monocytes % (Manual) Eosinophils % (Manual) Nucleated RBC % Seg Neutrophils # Seg Neutrophils # Man Lymphocytes # (Manual) Monocytes # (Manual) Eosinophils # (Manual) PT INR POC ABG pH POC ABG pCO2 POC ABG pO2 Sodium Potassium Chloride Carbon Dioxide BUN Creatinine Glucose POC Glucose 170 H 114 H 122 H Lactic Acid Calcium Phosphorus Magnesium AST ALT Alkaline Phosphatase Troponin T C-Reactive Protein Total Protein Albumin LDL Cholesterol Direct HDL Cholesterol Urine Creatinine Hepatitis C Antibody Crossmatch [facility] 12/01/17 12/01/17 12/01/17 04:09 04:09 12:17 WBC 14.1 H RBC 3.32 L Hgb 8.6 L Hct 27.0 L MCV 81 L MCH 26 L MCHC RDW 18.7 H Plt Count Lymph % (Auto) 5.5 L [place] % (Auto) 9.7 H Eos % (Auto) Lymph # 0.8 L [place] # 1.4 H Eos # Seg Neutrophils % 82.9 H Seg Neuts % (Manual) Lymphocytes % (Manual) Monocytes % (Manual) Eosinophils % (Manual) Nucleated RBC % Seg Neutrophils # 11.7 H Seg Neutrophils # Man Lymphocytes # (Manual) Monocytes # (Manual) Eosinophils # (Manual) PT INR POC ABG pH POC ABG pCO2 POC ABG pO2 Sodium Potassium 3.4 L Chloride Carbon Dioxide BUN 21 H Creatinine 3.0 H Glucose 108 H POC Glucose 126 H Lactic Acid Calcium 8.0 L Phosphorus Magnesium AST ALT Alkaline Phosphatase Troponin T C-Reactive Protein Total Protein Albumin LDL Cholesterol Direct HDL Cholesterol Urine Creatinine Hepatitis C Antibody Crossmatch [facility] 12/02/17 12/03/17 12/03/17 23:46 02:52 05:54 WBC 17.2 H RBC 3.21 L Hgb 8.5 L Hct 25.8 L MCV 80 L MCH 26 L MCHC RDW 18.4 H Plt Count 128 L Lymph % (Auto) [place] % (Auto) Eos % (Auto) Lymph # [place] # Eos # Seg Neutrophils % Seg Neuts % (Manual) Lymphocytes % (Manual) Monocytes % (Manual) Eosinophils % (Manual) Nucleated RBC % Seg Neutrophils # Seg Neutrophils # Man Lymphocytes # (Manual) Monocytes # (Manual) Eosinophils # (Manual) PT INR POC ABG pH POC ABG pCO2 POC ABG pO2 Sodium Potassium Chloride Carbon Dioxide BUN Creatinine Glucose POC Glucose 125 H 107 H Lactic Acid Calcium Phosphorus Magnesium AST ALT Alkaline Phosphatase Troponin T C-Reactive Protein Total Protein Albumin LDL Cholesterol Direct HDL Cholesterol Urine Creatinine Hepatitis C Antibody Crossmatch [facility] 12/03/17 12/03/17 12/04/17 12:05 Unknown 12:26 WBC RBC Hgb Hct MCV MCH MCHC RDW Plt Count Lymph % (Auto) [place] % (Auto) Eos % (Auto) Lymph # [place] # Eos # Seg Neutrophils % Seg Neuts % (Manual) Lymphocytes % (Manual) Monocytes % (Manual) Eosinophils % (Manual) Nucleated RBC % Seg Neutrophils # Seg Neutrophils # Man Lymphocytes # (Manual) Monocytes # (Manual) Eosinophils # (Manual) PT INR POC ABG pH POC ABG pCO2 POC ABG pO2 Sodium Potassium Chloride Carbon Dioxide BUN 21 H Creatinine 2.8 H Glucose 113 H POC Glucose 106 H 119 H Lactic Acid Calcium Phosphorus Magnesium AST ALT Alkaline Phosphatase Troponin T C-Reactive Protein Total Protein Albumin LDL Cholesterol Direct HDL Cholesterol Urine Creatinine Hepatitis C Antibody Crossmatch [facility] 12/04/17 12/05/17 12/05/17 17:57 00:52 04:05 WBC RBC 2.96 L Hgb 7.7 L Hct 24.2 L MCV 82 L MCH 26 L MCHC RDW 18.8 H Plt Count 105 L Lymph % (Auto) 10.6 L [place] % (Auto) 12.1 H Eos % (Auto) 5.2 H Lymph # 1.1 L [place] # 1.3 H Eos # 0.5 H Seg Neutrophils % 71.3 H Seg Neuts % (Manual) Lymphocytes % (Manual) Monocytes % (Manual) Eosinophils % (Manual) Nucleated RBC % Seg Neutrophils # Seg Neutrophils # Man Lymphocytes # (Manual) Monocytes # (Manual) Eosinophils # (Manual) PT INR POC ABG pH POC ABG pCO2 POC ABG pO2 Sodium Potassium Chloride Carbon Dioxide BUN Creatinine Glucose POC Glucose 140 H 117 H Lactic Acid Calcium Phosphorus Magnesium AST ALT Alkaline Phosphatase Troponin T C-Reactive Protein Total Protein Albumin LDL Cholesterol Direct HDL Cholesterol Urine Creatinine Hepatitis C Antibody Crossmatch [facility] 12/05/17 12/05/17 12/06/17 04:05 22:50 08:18 WBC RBC 2.80 L Hgb 7.4 L Hct 23.0 L MCV 82 L MCH 27 L MCHC RDW 19.5 H Plt Count 125 L Lymph % (Auto) [place] % (Auto) Eos % (Auto) Lymph # [place] # Eos # Seg Neutrophils % Seg Neuts % (Manual) Lymphocytes % (Manual) Monocytes % (Manual) Eosinophils % (Manual) Nucleated RBC % Seg Neutrophils # Seg Neutrophils # Man Lymphocytes # (Manual) Monocytes # (Manual) Eosinophils # (Manual) PT INR POC ABG pH POC ABG pCO2 POC ABG pO2 Sodium Potassium Chloride 107.4 H Carbon Dioxide BUN Creatinine 2.5 H Glucose POC Glucose 112 H Lactic Acid Calcium 8.3 L Phosphorus Magnesium AST ALT Alkaline Phosphatase Troponin T C-Reactive Protein Total Protein Albumin LDL Cholesterol Direct HDL Cholesterol Urine Creatinine Hepatitis C Antibody Crossmatch [facility] 12/06/17 12/06/17 12/06/17 08:18 12:01 23:58 WBC RBC Hgb Hct MCV MCH MCHC RDW Plt Count Lymph % (Auto) [place] % (Auto) Eos % (Auto) Lymph # [place] # Eos # Seg Neutrophils % Seg Neuts % (Manual) Lymphocytes % (Manual) Monocytes % (Manual) Eosinophils % (Manual) Nucleated RBC % Seg Neutrophils # Seg Neutrophils # Man Lymphocytes # (Manual) Monocytes # (Manual) Eosinophils # (Manual) PT INR POC ABG pH POC ABG pCO2 POC ABG pO2 Sodium Potassium Chloride 108.4 H Carbon Dioxide BUN 28 H Creatinine 3.7 H Glucose 103 H POC Glucose 106 H 108 H Lactic Acid Calcium 8.0 L Phosphorus Magnesium AST ALT Alkaline Phosphatase Troponin T C-Reactive Protein Total Protein Albumin LDL Cholesterol Direct HDL Cholesterol Urine Creatinine Hepatitis C Antibody Crossmatch [facility] 12/07/17 12/07/17 12/07/17 05:47 05:47 18:03 WBC RBC 2.79 L Hgb 7.3 L Hct 22.8 L MCV 82 L MCH 26 L MCHC RDW 19.1 H Plt Count 101 L Lymph % (Auto) [place] % (Auto) Eos % (Auto) Lymph # [place] # Eos # Seg Neutrophils % Seg Neuts % (Manual) 72.0 H Lymphocytes % (Manual) 13.0 L Monocytes % (Manual) Eosinophils % (Manual) 9.0 H Nucleated RBC % Seg Neutrophils # Seg Neutrophils # Man Lymphocytes # (Manual) 1.1 L Monocytes # (Manual) Eosinophils # (Manual) 0.8 H PT INR POC ABG pH POC ABG pCO2 POC ABG pO2 Sodium 146 H Potassium Chloride 109.8 H Carbon Dioxide BUN 36 H Creatinine 4.0 H Glucose POC Glucose 143 H Lactic Acid Calcium 8.0 L Phosphorus Magnesium AST ALT Alkaline Phosphatase Troponin T C-Reactive Protein Total Protein Albumin LDL Cholesterol Direct HDL Cholesterol Urine Creatinine Hepatitis C Antibody Crossmatch [facility] 12/07/17 12/08/17 12/08/17 23:33 05:10 05:10 WBC RBC 2.91 L Hgb 7.5 L Hct 24.4 L MCV MCH 26 L MCHC 31 L RDW 19.7 H Plt Count 109 L Lymph % (Auto) [place] % (Auto) Eos % (Auto) Lymph # [place] # Eos # Seg Neutrophils % Seg Neuts % (Manual) Lymphocytes % (Manual) 11.0 L Monocytes % (Manual) Eosinophils % (Manual) 12.0 H Nucleated RBC % Seg Neutrophils # Seg Neutrophils # Man Lymphocytes # (Manual) 0.7 L Monocytes # (Manual) Eosinophils # (Manual) 0.7 H PT INR POC ABG pH POC ABG pCO2 POC ABG pO2 Sodium 147 H Potassium Chloride 110.4 H Carbon Dioxide BUN Creatinine 2.8 H Glucose POC Glucose 107 H Lactic Acid Calcium 7.8 L Phosphorus Magnesium AST ALT Alkaline Phosphatase Troponin T C-Reactive Protein Total Protein Albumin LDL Cholesterol Direct HDL Cholesterol Urine Creatinine Hepatitis C Antibody Crossmatch [facility] 12/09/17 12/09/17 12/09/17 04:18 04:18 12:16 WBC RBC Hgb 7.2 L Hct 23.2 L MCV MCH MCHC RDW Plt Count Lymph % (Auto) [place] % (Auto) Eos % (Auto) Lymph # [place] # Eos # Seg Neutrophils % Seg Neuts % (Manual) Lymphocytes % (Manual) Monocytes % (Manual) Eosinophils % (Manual) Nucleated RBC % Seg Neutrophils # Seg Neutrophils # Man Lymphocytes # (Manual) Monocytes # (Manual) Eosinophils # (Manual) PT INR POC ABG pH POC ABG pCO2 POC ABG pO2 Sodium 150 H Potassium Chloride 114.5 H Carbon Dioxide BUN 25 H Creatinine 3.3 H Glucose POC Glucose 142 H Lactic Acid Calcium 7.7 L Phosphorus Magnesium AST ALT Alkaline Phosphatase Troponin T C-Reactive Protein Total Protein Albumin LDL Cholesterol Direct HDL Cholesterol Urine Creatinine Hepatitis C Antibody Crossmatch [facility] 12/10/17 12/10/17 12/11/17 05:14 05:14 12:05 WBC RBC 2.81 L Hgb 7.4 L Hct 23.9 L MCV MCH 26 L MCHC 31 L RDW 19.1 H Plt Count 128 L Lymph % (Auto) [place] % (Auto) Eos % (Auto) Lymph # [place] # Eos # Seg Neutrophils % Seg Neuts % (Manual) 78.0 H Lymphocytes % (Manual) 8.0 L Monocytes % (Manual) Eosinophils % (Manual) 5.0 H Nucleated RBC % Seg Neutrophils # Seg Neutrophils # Man Lymphocytes # (Manual) 0.6 L Monocytes # (Manual) Eosinophils # (Manual) PT INR POC ABG pH POC ABG pCO2 POC ABG pO2 Sodium Potassium Chloride Carbon Dioxide BUN Creatinine 2.2 H Glucose POC Glucose 127 H Lactic Acid Calcium 7.8 L Phosphorus Magnesium AST ALT Alkaline Phosphatase Troponin T C-Reactive Protein Total Protein Albumin LDL Cholesterol Direct HDL Cholesterol Urine Creatinine Hepatitis C Antibody Crossmatch [facility] 12/11/17 12/11/17 12/11/17 15:26 18:36 23:40 WBC RBC Hgb Hct MCV MCH MCHC RDW Plt Count Lymph % (Auto) [place] % (Auto) Eos % (Auto) Lymph # [place] # Eos # Seg Neutrophils % Seg Neuts % (Manual) Lymphocytes % (Manual) Monocytes % (Manual) Eosinophils % (Manual) Nucleated RBC % Seg Neutrophils # Seg Neutrophils # Man Lymphocytes # (Manual) Monocytes # (Manual) Eosinophils # (Manual) PT INR POC ABG pH POC ABG pCO2 POC ABG pO2 Sodium Potassium 3.3 L Chloride Carbon Dioxide BUN Creatinine 1.6 H Glucose POC Glucose 106 H 110 H Lactic Acid Calcium 7.6 L Phosphorus Magnesium AST ALT Alkaline Phosphatase Troponin T C-Reactive Protein Total Protein Albumin LDL Cholesterol Direct HDL Cholesterol Urine Creatinine Hepatitis C Antibody Crossmatch [facility] 12/12/17 12/12/1712/12/18 05:10 05:41 05:41 WBC RBC 3.17 L Hgb 8.1 L Hct 25.7 L MCV 81 L MCH 25 L MCHC 31 L RDW 19.2 H Plt Count Lymph % (Auto) [place] % (Auto) Eos % (Auto) Lymph # [place] # Eos # Seg Neutrophils % Seg Neuts % (Manual) 74.0 H Lymphocytes % (Manual) 6.0 L Monocytes % (Manual) Eosinophils % (Manual) 9.0 H Nucleated RBC % Seg Neutrophils # Seg Neutrophils # Man Lymphocytes # (Manual) 0.6 L Monocytes # (Manual) Eosinophils # (Manual) 0.9 H PT INR POC ABG pH POC ABG pCO2 POC ABG pO2 Sodium Potassium 3.5 L Chloride Carbon Dioxide BUN Creatinine 2.3 H Glucose 113 H POC Glucose 112 H Lactic Acid Calcium 7.5 L Phosphorus Magnesium AST ALT Alkaline Phosphatase Troponin T C-Reactive Protein Total Protein Albumin LDL Cholesterol Direct HDL Cholesterol Urine Creatinine Hepatitis C Antibody Crossmatch [facility] 12/13/17 12/13/17 12/13/17 06:14 12:00 17:37 WBC RBC Hgb Hct MCV MCH MCHC RDW Plt Count Lymph % (Auto) [place] % (Auto) Eos % (Auto) Lymph # [place] # Eos # Seg Neutrophils % Seg Neuts % (Manual) Lymphocytes % (Manual) Monocytes % (Manual) Eosinophils % (Manual) Nucleated RBC % Seg Neutrophils # Seg Neutrophils # Man Lymphocytes # (Manual) Monocytes # (Manual) Eosinophils # (Manual) PT INR POC ABG pH POC ABG pCO2 POC ABG pO2 Sodium Potassium Chloride Carbon Dioxide BUN Creatinine Glucose POC Glucose 130 H 133 H 136 H Lactic Acid Calcium Phosphorus Magnesium AST ALT Alkaline Phosphatase Troponin T C-Reactive Protein Total Protein Albumin LDL Cholesterol Direct HDL Cholesterol Urine Creatinine Hepatitis C Antibody Crossmatch [facility] 12/13/17 12/14/17 12/14/17 23:39 05:11 05:11 WBC RBC Hgb Hct MCV MCH MCHC RDW Plt Count Lymph % (Auto) [place] % (Auto) Eos % (Auto) Lymph # [place] # Eos # Seg Neutrophils % Seg Neuts % (Manual) Lymphocytes % (Manual) Monocytes % (Manual) Eosinophils % (Manual) Nucleated RBC % Seg Neutrophils # Seg Neutrophils # Man Lymphocytes # (Manual) Monocytes # (Manual) Eosinophils # (Manual) PT 15.4 H INR 1.17 H POC ABG pH POC ABG pCO2 POC ABG pO2 Sodium Potassium Chloride Carbon Dioxide 21 L BUN 26 H Creatinine 2.9 H Glucose POC Glucose 108 H Lactic Acid Calcium 7.2 L Phosphorus Magnesium AST ALT Alkaline Phosphatase Troponin T C-Reactive Protein Total Protein Albumin LDL Cholesterol Direct HDL Cholesterol Urine Creatinine Hepatitis C Antibody Crossmatch [facility] 12/14/17 12/14/17 12/14/17 12:00 16:01 18:24 WBC 12.9 H RBC 3.25 L Hgb 8.2 L Hct 26.2 L MCV 81 L MCH 25 L MCHC 31 L RDW 19.2 H Plt Count Lymph % (Auto) [place] % (Auto) Eos % (Auto) Lymph # [place] # Eos # Seg Neutrophils % Seg Neuts % (Manual) Lymphocytes % (Manual) Monocytes % (Manual) Eosinophils % (Manual) Nucleated RBC % Seg Neutrophils # Seg Neutrophils # Man Lymphocytes # (Manual) Monocytes # (Manual) Eosinophils # (Manual) PT INR POC ABG pH POC ABG pCO2 POC ABG pO2 Sodium Potassium Chloride Carbon Dioxide BUN Creatinine Glucose POC Glucose 138 H 120 H Lactic Acid Calcium Phosphorus Magnesium AST ALT Alkaline Phosphatase Troponin T C-Reactive Protein Total Protein Albumin LDL Cholesterol Direct HDL Cholesterol Urine Creatinine Hepatitis C Antibody Crossmatch [facility] 12/14/17 12/14/17 12/15/17 23:29 Unknown 05:57 WBC 12.5 H RBC 2.48 L Hgb 6.0 L Hct 24.4 L MCV 79 L MCH 24 L MCHC 30 L RDW 18.5 H Plt Count 131 L Lymph % (Auto) 7.0 L [place] % (Auto) 8.9 H Eos % (Auto) 8.3 H Lymph # 0.9 L [place] # 1.1 H Eos # 1.0 H Seg Neutrophils % 75.2 H Seg Neuts % (Manual) Lymphocytes % (Manual) Monocytes % (Manual) Eosinophils % (Manual) Nucleated RBC % Seg Neutrophils # 9.4 H Seg Neutrophils # Man Lymphocytes # (Manual) Monocytes # (Manual) Eosinophils # (Manual) PT INR POC ABG pH POC ABG pCO2 POC ABG pO2 Sodium Potassium Chloride Carbon Dioxide BUN Creatinine Glucose POC Glucose 110 H 113 H Lactic Acid Calcium Phosphorus Magnesium AST ALT Alkaline Phosphatase Troponin T C-Reactive Protein Total Protein Albumin LDL Cholesterol Direct HDL Cholesterol Urine Creatinine Hepatitis C Antibody Crossmatch [facility] 12/15/17 12/15/17 12/15/17 11:50 13:37 17:58 WBC RBC Hgb 7.3 L Hct 23.3 L MCV MCH MCHC RDW Plt Count Lymph % (Auto) [place] % (Auto) Eos % (Auto) Lymph # [place] # Eos # Seg Neutrophils % Seg Neuts % (Manual) Lymphocytes % (Manual) Monocytes % (Manual) Eosinophils % (Manual) Nucleated RBC % Seg Neutrophils # Seg Neutrophils # Man Lymphocytes # (Manual) Monocytes # (Manual) Eosinophils # (Manual) PT INR POC ABG pH POC ABG pCO2 POC ABG pO2 Sodium Potassium Chloride Carbon Dioxide BUN Creatinine Glucose POC Glucose 106 H 110 H Lactic Acid Calcium Phosphorus Magnesium AST ALT Alkaline Phosphatase Troponin T C-Reactive Protein Total Protein Albumin LDL Cholesterol Direct HDL Cholesterol Urine Creatinine Hepatitis C Antibody Crossmatch [facility] 12/15/17 12/16/17 12/16/17 23:30 04:55 05:14 WBC 13.2 H RBC 2.79 L Hgb 6.9 L Hct 22.2 L MCV 80 L MCH 25 L MCHC 31 L RDW 18.8 H Plt Count Lymph % (Auto) 7.3 L [place] % (Auto) 11.0 H Eos % (Auto) 8.2 H Lymph # 1.0 L [place] # 1.4 H Eos # 1.1 H Seg Neutrophils % 72.9 H Seg Neuts % (Manual) Lymphocytes % (Manual) Monocytes % (Manual) Eosinophils % (Manual) Nucleated RBC % Seg Neutrophils # 9.6 H Seg Neutrophils # Man Lymphocytes # (Manual) Monocytes # (Manual) Eosinophils # (Manual) PT INR POC ABG pH POC ABG pCO2 POC ABG pO2 Sodium 131 L D Potassium 2.8 L* D Chloride 93.2 L Carbon Dioxide BUN 24 H Creatinine 2.0 H Glucose POC Glucose 111 H Lactic Acid Calcium 7.7 L Phosphorus Magnesium AST ALT Alkaline Phosphatase Troponin T C-Reactive Protein Total Protein Albumin LDL Cholesterol Direct HDL Cholesterol Urine Creatinine Hepatitis C Antibody Crossmatch [facility] 12/16/17 12/16/17 12/16/17 13:01 17:32 23:39 WBC RBC Hgb Hct MCV MCH MCHC RDW Plt Count Lymph % (Auto) [place] % (Auto) Eos % (Auto) Lymph # [place] # Eos # Seg Neutrophils % Seg Neuts % (Manual) Lymphocytes % (Manual) Monocytes % (Manual) Eosinophils % (Manual) Nucleated RBC % Seg Neutrophils # Seg Neutrophils # Man Lymphocytes # (Manual) Monocytes # (Manual) Eosinophils # (Manual) PT INR POC ABG pH POC ABG pCO2 POC ABG pO2 Sodium Potassium Chloride Carbon Dioxide BUN Creatinine Glucose POC Glucose 121 H 107 H Lactic Acid Calcium Phosphorus Magnesium AST ALT Alkaline Phosphatase Troponin T C-Reactive Protein Total Protein Albumin LDL Cholesterol Direct HDL Cholesterol Urine Creatinine Hepatitis C Antibody Crossmatch [facility]match [facility] See Detail 12/17/17 12/17/17 12/17/17 05:08 05:08 12:03 WBC 12.9 H RBC 2.88 L Hgb 7.2 L Hct 22.6 L MCV 78 L MCH 25 L MCHC RDW 18.3 H Plt Count Lymph % (Auto) 8.0 L [place] % (Auto) 8.6 H Eos % (Auto) Lymph # 1.0 L [place] # 1.1 H Eos # Seg Neutrophils % 79.3 H Seg Neuts % (Manual) Lymphocytes % (Manual) Monocytes % (Manual) Eosinophils % (Manual) Nucleated RBC % Seg Neutrophils # 10.2 H Seg Neutrophils # Man Lymphocytes # (Manual) Monocytes # (Manual) Eosinophils # (Manual) PT INR POC ABG pH POC ABG pCO2 POC ABG pO2 Sodium Potassium 3.4 L D Chloride Carbon Dioxide BUN Creatinine Glucose 104 H POC Glucose 109 H Lactic Acid Calcium 7.6 L Phosphorus Magnesium 1.30 L AST ALT Alkaline Phosphatase 177 H Troponin T C-Reactive Protein Total Protein Albumin 2.0 L LDL Cholesterol Direct HDL Cholesterol Urine Creatinine Hepatitis C Antibody Crossmatch [facility] 12/17/17 12/18/17 12/18/17 23:40 00:50 00:50 WBC 22.6 H RBC 2.76 L Hgb 6.7 L Hct 21.6 L MCV 78 L MCH 24 L MCHC 31 L RDW 18.4 H Plt Count Lymph % (Auto) [place] % (Auto) Eos % (Auto) Lymph # [place] # Eos # Seg Neutrophils % Seg Neuts % (Manual) Lymphocytes % (Manual) Monocytes % (Manual) Eosinophils % (Manual) Nucleated RBC % Seg Neutrophils # Seg Neutrophils # Man Lymphocytes # (Manual) Monocytes # (Manual) Eosinophils # (Manual) PT INR POC ABG pH POC ABG pCO2 POC ABG pO2 Sodium Potassium Chloride Carbon Dioxide BUN 22 H Creatinine 1.6 H Glucose 113 H POC Glucose 120 H Lactic Acid Calcium 7.8 L Phosphorus Magnesium 1.50 L AST ALT Alkaline Phosphatase Troponin T C-Reactive Protein Total Protein Albumin LDL Cholesterol Direct HDL Cholesterol Urine Creatinine Hepatitis C Antibody Crossmatch [facility]match [facility] 12/18/17 12/18/17 12/18/17 05:34 12:00 18:07 WBC RBC Hgb Hct MCV MCH MCHC RDW Plt Count Lymph % (Auto) [place] % (Auto) Eos % (Auto) Lymph # [place] # Eos # Seg Neutrophils % Seg Neuts % (Manual) Lymphocytes % (Manual) Monocytes % (Manual) Eosinophils % (Manual) Nucleated RBC % Seg Neutrophils # Seg Neutrophils # Man Lymphocytes # (Manual) Monocytes # (Manual) Eosinophils # (Manual) PT INR POC ABG pH POC ABG pCO2 POC ABG pO2 Sodium Potassium Chloride Carbon Dioxide BUN Creatinine Glucose POC Glucose 132 H 136 H 122 H Lactic Acid Calcium Phosphorus Magnesium AST ALT Alkaline Phosphatase Troponin T C-Reactive Protein Total Protein Albumin LDL Cholesterol Direct HDL Cholesterol Urine Creatinine Hepatitis C Antibody Crossmatch [facility]match [facility] 12/19/17 12/19/17 12/19/17 00:24 00:24 05:17 WBC 15.4 H RBC 2.41 L Hgb 6.1 L Hct 19.0 L* MCV 79 L MCH 25 L MCHC RDW 18.5 H Plt Count Lymph % (Auto) [place] % (Auto) Eos % (Auto) Lymph # [place] # Eos # Seg Neutrophils % Seg Neuts % (Manual) Lymphocytes % (Manual) Monocytes % (Manual) Eosinophils % (Manual) Nucleated RBC % Seg Neutrophils # Seg Neutrophils # Man Lymphocytes # (Manual) Monocytes # (Manual) Eosinophils # (Manual) PT INR POC ABG pH POC ABG pCO2 POC ABG pO2 Sodium Potassium 3.2 L Chloride Carbon Dioxide BUN Creatinine Glucose 117 H POC Glucose 132 H Lactic Acid Calcium 8.2 L Phosphorus Magnesium 1.50 L AST ALT Alkaline Phosphatase Troponin T C-Reactive Protein Total Protein Albumin LDL Cholesterol Direct HDL Cholesterol Urine Creatinine Hepatitis C Antibody Crossmatch Crossmatch Prewarmed 12/19/17 12/19/17 12/19/17 09:00 09:00 18:01 WBC 12.4 H RBC 2.86 L Hgb 7.2 L Hct 22.6 L MCV 79 L MCH 25 L MCHC RDW 17.2 H Plt Count Lymph % (Auto) 6.8 L [place] % (Auto) 12.6 H Eos % (Auto) Lymph # 0.8 L [place] # 1.6 H Eos # Seg Neutrophils % 80.1 H Seg Neuts % (Manual) Lymphocytes % (Manual) Monocytes % (Manual) Eosinophils % (Manual) Nucleated RBC % Seg Neutrophils # 10.0 H Seg Neutrophils # Man Lymphocytes # (Manual) Monocytes # (Manual) Eosinophils # (Manual) PT INR POC ABG pH POC ABG pCO2 POC ABG pO2 Sodium Potassium 3.1 L Chloride Carbon Dioxide BUN 22 H Creatinine Glucose 113 H POC Glucose 117 H Lactic Acid Calcium 8.3 L Phosphorus Magnesium AST 54 H ALT Alkaline Phosphatase 204 H Troponin T C-Reactive Protein Total Protein 5.8 L Albumin 2.0 L LDL Cholesterol Direct HDL Cholesterol Urine Creatinine Hepatitis C Antibody Crossmatch Crossmatch Prewarmed 12/19/17 12/20/17 12/20/17 23:49 05:53 19:00 WBC RBC 3.03 L Hgb 7.7 L Hct 23.7 L MCV 78 L MCH 25 L MCHC RDW 17.2 H Plt Count Lymph % (Auto) [place] % (Auto) Eos % (Auto) Lymph # [place] # Eos # Seg Neutrophils % Seg Neuts % (Manual) 74.0 H Lymphocytes % (Manual) 6.0 L Monocytes % (Manual) 17.0 H Eosinophils % (Manual) Nucleated RBC % Seg Neutrophils # Seg Neutrophils # Man Lymphocytes # (Manual) 0.5 L Monocytes # (Manual) 1.5 H Eosinophils # (Manual) PT INR POC ABG pH POC ABG pCO2 POC ABG pO2 Sodium Potassium Chloride Carbon Dioxide BUN Creatinine Glucose POC Glucose 125 H 124 H Lactic Acid Calcium Phosphorus Magnesium AST ALT Alkaline Phosphatase Troponin T C-Reactive Protein Total Protein Albumin LDL Cholesterol Direct HDL Cholesterol Urine Creatinine Hepatitis C Antibody Crossmatch Crossmatch Prewarmed 12/20/17 12/21/17 12/22/17 19:00 23:54 05:07 WBC RBC Hgb Hct MCV MCH MCHC RDW Plt Count Lymph % (Auto) [place] % (Auto) Eos % (Auto) Lymph # [place] # Eos # Seg Neutrophils % Seg Neuts % (Manual) Lymphocytes % (Manual) Monocytes % (Manual) Eosinophils % (Manual) Nucleated RBC % Seg Neutrophils # Seg Neutrophils # Man Lymphocytes # (Manual) Monocytes # (Manual) Eosinophils # (Manual) PT INR POC ABG pH POC ABG pCO2 POC ABG pO2 Sodium Potassium 3.3 L 2.9 L* Chloride Carbon Dioxide BUN 37 H 43 H Creatinine Glucose 114 H POC Glucose 109 H Lactic Acid Calcium 8.3 L 7.8 L Phosphorus 1.60 L Magnesium 1.50 L AST ALT Alkaline Phosphatase Troponin T C-Reactive Protein Total Protein Albumin LDL Cholesterol Direct HDL Cholesterol Urine Creatinine Hepatitis C Antibody Crossmatch Crossmatch P[place]armed 12/22/17 12/22/17 12/22/17 05:07 05:07 06:02 WBC 4.1 L RBC 3.09 L Hgb 7.7 L Hct 24.3 L MCV 79 L MCH 25 L MCHC RDW 17.8 H Plt Count Lymph % (Auto) [place] % (Auto) Eos % (Auto) Lymph # [place] # Eos # Seg Neutrophils % Seg Neuts % (Manual) Lymphocytes % (Manual) Monocytes % (Manual) Eosinophils % (Manual) Nucleated RBC % Seg Neutrophils # Seg Neutrophils # Man Lymphocytes # (Manual) Monocytes # (Manual) Eosinophils # (Manual) PT INR POC ABG pH POC ABG pCO2 POC ABG pO2 Sodium Potassium Chloride Carbon Dioxide BUN Creatinine Glucose POC Glucose 107 H Lactic Acid Calcium Phosphorus Magnesium 1.60 L AST ALT Alkaline Phosphatase Troponin T C-Reactive Protein Total Protein Albumin LDL Cholesterol Direct HDL Cholesterol Urine Creatinine Hepatitis C Antibody Crossmatch Crossmatch Prewarmed 12/22/17 12/22/17 12/22/17 10:50 12:02 17:32 WBC RBC Hgb Hct MCV MCH MCHC RDW Plt Count Lymph % (Auto) [place] % (Auto) Eos % (Auto) Lymph # [place] # Eos # Seg Neutrophils % Seg Neuts % (Manual) Lymphocytes % (Manual) Monocytes % (Manual) Eosinophils % (Manual) Nucleated RBC % Seg Neutrophils # Seg Neutrophils # Man Lymphocytes # (Manual) Monocytes # (Manual) Eosinophils # (Manual) PT INR POC ABG pH POC ABG pCO2 POC ABG pO2 Sodium Potassium Chloride Carbon Dioxide BUN Creatinine Glucose POC Glucose 129 H 111 H Lactic Acid Calcium Phosphorus Magnesium AST ALT Alkaline Phosphatase Troponin T C-Reactive Protein Total Protein Albumin LDL Cholesterol Direct HDL Cholesterol Urine Creatinine 55.8 H Hepatitis C Antibody Crossmatch Crossmatch [place]armed 12/22/17 12/22/17 12/23/17 19:03 23:57 05:55 WBC RBC Hgb Hct MCV MCH MCHC RDW Plt Count Lymph % (Auto) [place] % (Auto) Eos % (Auto) Lymph # [place] # Eos # Seg Neutrophils % Seg Neuts % (Manual) Lymphocytes % (Manual) Monocytes % (Manual) Eosinophils % (Manual) Nucleated RBC % Seg Neutrophils # Seg Neutrophils # Man Lymphocytes # (Manual) Monocytes # (Manual) Eosinophils # (Manual) PT INR POC ABG pH POC ABG pCO2 POC ABG pO2 Sodium Potassium 3.4 L 2.9 L* Chloride Carbon Dioxide BUN 40 H Creatinine Glucose 107 H POC Glucose 128 H Lactic Acid Calcium 7.9 L Phosphorus Magnesium AST ALT Alkaline Phosphatase Troponin T C-Reactive Protein Total Protein Albumin LDL Cholesterol Direct HDL Cholesterol Urine Creatinine Hepatitis C Antibody Crossmatch Crossmatch P[place]armed 12/23/17 12/23/17 12/23/17 05:55 05:55 11:59 WBC 3.8 L RBC 3.10 L Hgb 7.7 L Hct 25.5 L MCV 82 L MCH 25 L MCHC 30 L RDW 17.9 H Plt Count Lymph % (Auto) [place] % (Auto) Eos % (Auto) Lymph # [place] # Eos # Seg Neutrophils % Seg Neuts % (Manual) Lymphocytes % (Manual) Monocytes % (Manual) Eosinophils % (Manual) Nucleated RBC % Seg Neutrophils # Seg Neutrophils # Man Lymphocytes # (Manual) Monocytes # (Manual) Eosinophils # (Manual) PT INR POC ABG pH POC ABG pCO2 POC ABG pO2 Sodium Potassium Chloride Carbon Dioxide BUN Creatinine Glucose POC Glucose 115 H Lactic Acid Calcium Phosphorus Magnesium 1.60 L AST ALT Alkaline Phosphatase Troponin T C-Reactive Protein Total Protein Albumin LDL Cholesterol Direct HDL Cholesterol Urine Creatinine Hepatitis C Antibody Crossmatch Crossmatch Prewarmed Chest x-ray: report reviewed, image reviewed
--- NOTE | 2017-12-23 22:13 | Progress Note ---
Assessment and Plan Assessment and plan: Admitted 11/12/17 Mr. 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 He had a Carotid doppler done that revealed a right ICA 50-79% stenosis. CTA of the neck revealed 80% stenosis of the right ICA with probable 50% stenosis of the origin of the right common carotid artery. His symptoms were thought to be due to the Carotid artery stenosis which was disheartening since he was on Aspirin and plavix. He was scheduled for right CEA but needed Cardiac clearance. He underwent stress test on 10/05/17 and Director Furniture stated he was stable for non-cardiac history, low to moderate perioperative risk. So, he underwent right carotid enarterectomy on 10/09/17. Following the surgery, he developed recurrent left sided weakness/hemiparesis and was taken back to the OR on 10/10/17 for Open Thrombectomy of Right Internal Carotid Artery and Injection of tPA into the Artery. CT head obtained 2 days after surgery on 10/12 showed massive right cerebral hemisphere acute CVA with midline shift. He was subsequently discharged on 11/10/17 to [facility] but returned to [facility] and was re-admitted on 11/12/17 for suspected sepsis due to Aspiration post-obstructive pneumonia with suspected mucus plug and subsequently intubated on admission. On 11/20/17, patient went for Tracheostomy by Dr. Hughes, ENT. Then on 11/21/17 patient went into shock, most likely sepsis as WBC went up to 38.2k; initially thought to be due worsening aspiration pneumonia but it was discovered that he had a dislodged PEG tube from the Nursing, most likely present on admission, which lead to the shock from severe intra-abdominal infection/ peritonitis requiring IR drainage and General surgery drainage. Peritonitis - from dislodged peg tube, hence not present - has completed abx - s/p multiple intraabdominal drainages placed by IR and GS. -awaiting abdominal wounds to heal prior to placement of new PEG tube -Acute hypoxic respiratory failure due to Pneumonia on MV>96 hours s/p Tracheostomy 11/20/17: continue trache collar -septic shock, reslove -Aspiration pneumonia, resolved -Acute encephalopathy: currently at new baseline, non verbal, moves right side on command -Hypernatremia: improved with free water -Hypokalemia ; resolved hypomagnesemia: replace and monitor closely -ARF vasomotor nephropathy, poa: IV fluids, monitor bmp closely, received HD and now has renal recovery -Dysphagia with aspiration: s/p peg tube -Acute on chronic blood loss anemia w/Coffee-ground material from peg tube: GI is following, treat with ppi iv bid, EGD done 11/18/17 showed 8 mm cratered, 10 mm linear ulcer proximal lesser curvature with erythema but no other bleeding stigmata, gastritis and 4-5 cm hiatal hernia -Advance care planning: full code -Disposition: continue inpatient care, LTAC declined to accept patient without PEG tube. D/W Gen Sx, awaiting abdominal wounds to heal, then new peg tube prior to snf placement KILEY is daughter, Eugenie [phone], History Interval history: patient is calm and obeys simple commands no events, no agitation, no fevers no seizures, Hospitalist Physical - Physical exam Narrative exam: General appearance: Present:appears chronically ill - EENT Eyes: Present: PERRL - Neck Neck: Present: supple - Respiratory Respiratory effort: labored Respiratory: bilateral: rales - Cardiovascular Rhythm: regular Heart Sounds: Present: S1 & S2 - Extremities Extremities: no ischemia - Abdominal General gastrointestinal: soft, non-tender - Integumentary Integumentary: Present: clear, warm, dry - Psychiatric Psychiatric: non verbal, trached to trache collar - Neurologic Neurologic: left hemiplegia, able to move right side on command, but right side is weak - Constitutional Vitals: Temp Pulse Resp BP Pulse Ox 99.2 F 107 H 29 H 158/94 95 12/23/17 20:00 12/23/17 21:00 12/23/17 21:00 12/23/17 21:00 12/23/17 21:00 General appearance: Present: no acute distress Results - Labs CBC & Chem 7: 12/28/17 04:59 12/30/17 04:46 Labs: Laboratory Last Values WBC 3.8 K/mm3 (4.5-11.0) L 12/23/17 05:55 RBC 3.10 M/mm3 (3.65-5.03) L 12/23/17 05:55 Hgb 7.7 gm/dl (11.8-15.2) L 12/23/17 05:55 Hct 25.5 % (35.5-45.6) L 12/23/17 05:55 MCV 82 fl (84-94) L 12/23/17 05:55 MCH 25 pg (28-32) L 12/23/17 05:55 MCHC 30 % (32-34) L 12/23/17 05:55 RDW 17.9 % (13.2-15.2) H 12/23/17 05:55 Plt Count 188 K/mm3 (140-440) 12/23/17 05:55 Lymph % (Auto) 6.8 % (13.4-35.0) L 12/19/17 09:00 [place] % (Auto) Braille Duplicating Machine Operator 12/20/17 19:00 Eos % (Auto) 0.2 % (0.0-4.3) 12/19/17 09:00 Baso % (Auto) 0.3 % (0.0-1.8) 12/19/17 09:00 Lymph # 0.8 K/mm3 (1.2-5.4) L 12/19/17 09:00 [place] # 1.6 K/mm3 (0.0-0.8) H 12/19/17 09:00 Eos # 0.0 K/mm3 (0.0-0.4) 12/19/17 09:00 Baso # 0.0 K/mm3 (0.0-0.1) 12/19/17 09:00 Add Manual Diff Complete 12/20/17 19:00 Total Counted 100 12/20/17 19:00 Seg Neutrophils % 80.1 % (40.0-70.0) H 12/19/17 09:00 Seg Neuts % (Manual) 74.0 % (40.0-70.0) H 12/20/17 19:00 Band Neutrophils % 2.0 % 12/20/17 19:00 Lymphocytes % (Manual) 6.0 % (13.4-35.0) L 12/20/17 19:00 Reactive Lymphs % (Man) 0 % 12/20/17 19:00 Monocytes % (Manual) 17.0 % (0.0-7.3) H 12/20/17 19:00 Eosinophils % (Manual) 1.0 % (0.0-4.3) 12/20/17 19:00 Basophils % (Manual) 0 % (0.0-1.8) 12/20/17 19:00 Metamyelocytes % 0 % 12/20/17 19:00 Myelocytes % 0 % 12/20/17 19:00 Promyelocytes % 0 % 12/20/17 19:00 Blast Cells % 0 % 12/20/17 19:00 Nucleated RBC % Not Reportable 12/20/17 19:00 Seg Neutrophils # 10.0 K/mm3 (1.8-7.7) H 12/19/17 09:00 Seg Neutrophils # Man 6.4 K/mm3 (1.8-7.7) 12/20/17 19:00 Band Neutrophils # 0.2 K/mm3 12/20/17 19:00 Lymphocytes # (Manual) 0.5 K/mm3 (1.2-5.4) L 12/20/17 19:00 Abs React Lymphs (Man) 0.0 K/mm3 12/20/17 19:00 Monocytes # (Manual) 1.5 K/mm3 (0.0-0.8) H 12/20/17 19:00 Eosinophils # (Manual) 0.1 K/mm3 (0.0-0.4) 12/20/17 19:00 Basophils # (Manual) 0.0 K/mm3 (0.0-0.1) 12/20/17 19:00 Metamyelocytes # 0.0 K/mm3 12/20/17 19:00 Myelocytes # 0.0 K/mm3 12/20/17 19:00 Promyelocytes # 0.0 K/mm3 12/20/17 19:00 Blast Cells # 0.0 K/mm3 12/20/17 19:00 WBC Morphology Not Reportable 12/20/17 19:00 Hypersegmented Neuts Not Reportable 12/20/17 19:00 Hyposegmented Neuts Not Reportable 12/20/17 19:00 Hypogranular Neuts Not Reportable 12/20/17 19:00 Smudge Cells Not Reportable 12/20/17 19:00 Toxic Granulation Not Reportable 12/20/17 19:00 Toxic Vacuolation Not Reportable 12/20/17 19:00 Dohle Bodies Not Reportable 12/20/17 19:00 Pelger-Huet Anomaly Not Reportable 12/20/17 19:00 Evangelina Rods Not Reportable 12/20/17 19:00 Platelet Estimate Appears normal 12/20/17 19:00 Clumped Platelets Not Reportable 12/20/17 19:00 Plt Clumps, EDTA Not Reportable 12/20/17 19:00 Large Platelets Not Reportable 12/20/17 19:00 Giant Platelets Not Reportable 12/20/17 19:00 Platelet Satelliting Not Reportable 12/20/17 19:00 Plt Morphology Comment Not Reportable 12/20/17 19:00 RBC Morphology Not Reportable 12/20/17 19:00 Dimorphic RBCs Not Reportable 12/20/17 19:00 Polychromasia Not Reportable 12/20/17 19:00 Hypochromasia 2+ 12/20/17 19:00 Poikilocytosis Few 12/20/17 19:00 Anisocytosis 1+ 12/20/17 19:00 Microcytosis 1+ 12/20/17 19:00 Macrocytosis Not Reportable 12/20/17 19:00 Spherocytes Not Reportable 12/20/17 19:00 Pappenheimer Bodies Not Reportable 12/20/17 19:00 Sickle Cells Not Reportable 12/20/17 19:00 Target Cells Not Reportable 12/20/17 19:00 Tear Drop Cells Not Reportable 12/20/17 19:00 Ovalocytes Few 12/20/17 19:00 Stomatocytes 1+ 12/12/17 05:41 Helmet Cells Not Reportable 12/20/17 19:00 [place] Bodies Not Reportable 12/20/17 19:00 [place] Rings Not Reportable 12/20/17 19:00 [place] Cells Not Reportable 12/20/17 19:00 Bite Cells Not Reportable 12/20/17 19:00 Crenated Cell Not Reportable 12/20/17 19:00 Elliptocytes Not Reportable 12/20/17 19:00 Acanthocytes (Spur) Not Reportable 12/20/17 19:00 Rouleaux Not Reportable 12/20/17 19:00 Hemoglobin C Crystals Not Reportable 12/20/17 19:00 Schistocytes Not Reportable 12/20/17 19:00 Malaria parasites Not Reportable 12/20/17 19:00 [place] Bodies Not Reportable 12/20/17 19:00 Hem Pathologist Commnt No 12/20/17 19:00 PT 15.4 Sec. (12.2-14.9) H 12/14/17 05:11 INR 1.17 (0.87-1.13) H 12/14/17 05:11 APTT 33.8 Sec. (24.2-36.6) 11/26/17 06:29 POC ABG pH 7.505 (7.35-7.45) H 11/23/17 04:56 POC ABG pCO2 26.3 (35-45) L 11/23/17 04:56 POC ABG pO2 100 (80-105) 11/23/17 04:56 POC ABG HCO3 20.8 11/23/17 04:56 POC ABG Total CO2 22 11/23/17 04:56 POC ABG O2 Sat 98 11/23/17 04:56 POC ABG Base Excess -2 11/23/17 04:56 FiO2 30 % 11/23/17 04:56 Sodium 142 mmol/L (137-145) 12/23/17 05:55 Potassium 2.9 mmol/L (3.6-5.0) L* 12/23/17 05:55 Chloride 105.2 mmol/L (98-107) 12/23/17 05:55 Carbon Dioxide 25 mmol/L (22-30) 12/23/17 05:55 Anion Gap 15 mmol/L 12/23/17 05:55 BUN 40 mg/dL (9-20) H 12/23/17 05:55 Creatinine 0.8 mg/dL (0.8-1.5) 12/23/17 05:55 Estimated GFR > 60 ml/min 12/23/17 05:55 BUN/Creatinine Ratio 50 % 12/23/17 05:55 Glucose 107 mg/dL (75-100) H 12/23/17 05:55 POC Glucose 95 (70-105) 12/23/17 18:18 Lactic Acid 1.80 mmol/L (0.7-2.0) 11/27/17 04:06 Calcium 7.9 mg/dL (8.4-10.2) L 12/23/17 05:55 Phosphorus 1.60 mg/dL (2.5-4.5) L 12/20/17 19:00 Magnesium 1.60 mg/dL (1.7-2.3) L 12/23/17 05:55 Total Bilirubin 0.70 mg/dL (0.1-1.2) 12/19/17 09:00 AST 54 units/L (5-40) H 12/19/17 09:00 ALT 25 units/L (7-56) 12/19/17 09:00 Alkaline Phosphatase 204 units/L (35-129) H 12/19/17 09:00 Total Creatine Kinase 84 units/L (55-170) 11/12/17 20:03 CK-MB (CK-2) < 1.0 ng/mL (0.0-4.0) 11/12/17 20:03 CK-MB (CK-2) Rel Index 1.1 (0-4) 11/12/17 20:03 Troponin T 0.098 ng/mL (0.00-0.029) H 11/12/17 Unknown C-Reactive Protein 25.70 mg/dL (0.00-1.30) H 11/11/17 23:20 NT-Pro-B Natriuret Pep 792.4 pg/mL (0-900) 11/11/17 23:20 Total Protein 5.8 g/dL (6.3-8.2) L 12/19/17 09:00 Albumin 2.0 g/dL (3.9-5) L 12/19/17 09:00 Albumin/Globulin Ratio 0.5 % 12/19/17 09:00 Triglycerides 86 mg/dL (2-149) 11/11/17 23:20 Cholesterol 82 mg/dL (50-199) 11/11/17 23:20 LDL Cholesterol Direct 42 mg/dL (50-130) L 11/11/17 23:20 HDL Cholesterol 24 mg/dL (40-59) L 11/11/17 23:20 Cholesterol/HDL Ratio 3.41 % 11/11/17 23:20 Lipase 30 units/L (13-60) 11/11/17 23:20 Urine Color Nicole (Yellow) 11/11/17 23:09 Urine Turbidity Cloudy (Clear) 11/11/17 23:09 Urine pH 5.0 (5.0-7.0) 11/11/17 23:09 Ur Specific [place] 1.025 (1.003-1.030) 11/11/17 23:09 Urine Protein 100 mg/dl mg/dL (Negative) 11/11/17 23:09 Urine Glucose (UA) 50 mg/dL (Negative) 11/11/17 23:09 Urine Ketones Neg mg/dL (Negative) 11/11/17 23:09 Urine Blood Neg (Negative) 11/11/17 23:09 Urine Nitrite Neg (Negative) 11/11/17 23:09 Urine Bilirubin Neg (Negative) 11/11/17 23:09 Urine Urobilinogen 4.0 mg/dL (<2.0) 11/11/17 23:09 Ur Leukocyte Esterase Neg (Negative) 11/11/17 23:09 Urine WBC (Auto) 5.0 /HPF (0.0-6.0) 11/11/17 23:09 Urine RBC (Auto) 4.0 /HPF (0.0-6.0) 11/11/17 23:09 Urine Bacteria (Auto) 3+ /HPF (Negative) 11/11/17 23:09 Amorphous Crystals 3+ 11/11/17 23:09 Hyaline Casts 76 /LPF 11/11/17 23:09 Urine Mucus 2+ /HPF 11/11/17 23:09 Urine Total Volume 1350 12/22/17 10:50 Urine Creatinine 55.8 mg/dL (0.1-20.0) H 12/22/17 10:50 Ur Creatinine 24 Hour 0.8 (0.8-2.8) 12/22/17 10:50 Hepatitis A IgM Ab Non-reactive (NonReactive) 11/22/17 19:45 Hep Bs Antigen Non-reactive (Negative) 11/22/17 19:45 Hep B Core IgM Ab Non-reactive (NonReactive) 11/22/17 19:45 Hepatitis C Antibody Reactive (NonReactive) A 11/22/17 19:45 Blood Type A POSITIVE 12/16/17 13:01 Antibody Screen Positive 12/16/17 13:01 SANTANA Antibody Screen Cancelled 12/16/17 13:01 Antibody Identification Cold Antibody 12/16/17 13:01 Crossmatch See Detail 12/16/17 13:01 Crossmatch Prewarmed See Detail 12/16/17 13:01
[2017-12-24 04:19] LABS: Alanine Aminotransferase 59 units/L (7-56); Albumin 2.2 g/dL (3.9-5); BUN/Creatinine Ratio 51; Blood Urea Nitrogen 36 mg/dL (9-20); Calcium 7.5 mg/dL (8.4-10.2); Hemolysis Index 13
[2017-12-24 04:27] LABS: Hematocrit 23.7 % (35.5-45.6); Hemoglobin 7.6 gm/dl (11.8-15.2); Mean Corpuscular HGB Conc 32 % (32-34); Mean Corpuscular Volume 78 fl (84-94); Platelet Count 218 K/mm3 (140-440); Red Blood Count 3.03 M/mm3 (3.65-5.03); Red Cell Distribution Width 17.8 % (13.2-15.2)
[2017-12-24 04:34] LABS: Mean Corpuscular Hemoglobin 25 pg (28-32)
[2017-12-24] MEDS: LOPRESSOR PO SCH ×2 (09:01→21:49)
[2017-12-24] MEDS: PREVACID SOLUTAB FEEDTUBE SCH ×2 (09:02→21:49)
[2017-12-24] MEDS: POTASSIUM CHLORIDE FEEDTUBE SCH (11:15)
[2017-12-24] MEDS ORDERED: MAGNESIUM SULFATE 4GM/100ML 4 GM/100 ML BAG IV ONE (11:35)
--- NOTE | 2017-12-24 11:35 | Cat Scan Report ---
EXAM: CT guided placement of a 12 Fr drain in the perihepatic collection - 550 mL removed (serous) CT guided placement of a 12 Fr drain in the mid abdomen collection - [address] guided exchange of a left upper quadrant gastrostomy tube in the peritoneal cavity for a 16 Fr drain - 800 mL removed (cloudy foul smelling) CLINICAL INDICATION: Multiple abdominal fluid collections with request for drainage by surgery. DATE: 11/26/17 PSS DELIVERY PROFESSIONAL: NICCI HONG MD MEDICATIONS: Conscious sedation using Versed and fentanyl was performed under guidance of radiologic nursing. Continuous cardiopulmonary monitoring was utilized. PROCEDURE: Following an explanation of the risks, benefits and alternatives; written informed consent was obtained. The patient was brought to the CT suite and placed in the supine position on the CT table. Manager Of Community Relations CT was performed of the abdomen. After determining the appropriate site, the skin was infiltrated with lidocaine and a finder needle was placed. Intermittent CT was performed until the desired position was identified. The 18 gauge trocar needle was inserted into the perihepatic collection. Aspiration was performed and sent to the lab for analysis. J wire was then advanced through the needle and into the collection. The needle was exchanged for multiple dilators that were used to serially dilate over the wire. A 12 Fr APD drain was advanced over the wire and metal stiffener. The metal stiffener and wire were removed. The pigtail was secured and aspirated until no more material could be aspirated. Manager Of Community Relations CT was performed of the abdomen. After determining the appropriate site, the skin was infiltrated with lidocaine and a finder needle was placed. Intermittent CT was performed until the desired position was identified. The 18 gauge trocar needle was inserted into the mid abdominal collection. Aspiration was performed and sent to the lab for analysis. J wire was then advanced through the needle and into the collection. The needle was exchanged for multiple dilators that were used to serially dilate over the wire. A 12 Fr APD drain was advanced over the wire and metal stiffener. The metal stiffener and wire were removed. The pigtail was secured and aspirated until no more material could be aspirated. Manager Of Community Relations CT was performed of the abdomen. 0.035 inch wire was passed through the gastrostomy tube which was located in the peritoneal cavity and not in the stomach. Gastrostomy tube was removed and exchanged for dilators that were used to serially dilate over the wire. A 16 Fr APD drain was advanced over the wire and metal stiffener. The metal stiffener and wire were removed. The pigtail was secured and aspirated until no more material could be aspirated. Sterile bandage was applied. The patient tolerated the procedure well. There were no immediate postprocedural complications. FINDINGS: Please see procedure note above. IMPRESSION: Successful CT guided 12 Fr drain placement in a RUQ collection. Successful CT guided 12 Fr drain placement in a mid abdominal collection. Successful CT guided exchange of a gastrostomy tube for a 16 Fr drain.
--- NOTE | 2017-12-24 11:52 | Progress Note ---
Assessment and Plan Assessment * Acute kidney injury secondary to ATN --Intermittent HD started on 11/23/17 * Sepsis secondary to peritonitis/PEG malpositioning --RUQ/LUQ drains: Enterobacter, Heather (non albicans) * Aspiration pneumonitis related to above * Anemia * Acute CVA * Carotid artery disease s/p CEA * Encephalopathy Plan: * some evidence of renal recovery * hold dialysis. and follow up 24hr crcl 65ml/min * vasc cath needs to be removed * replete k and mag prn * d5w with kcl * Abx per ID * prbcs prn * Strict I/O * Avoid potential nephrptoxins * Dose medications for renal function * Replete lytes prn * Avoid nephrotoxins Subjective Date of service: 12/24/17 Principal diagnosis: Acute hypoxic respiratory failure, s/p Trach Interval history: new consult noted, last seen 11/09 with normal renal function Objective - Exam Narrative Exam: Constitutional: lethargic, other (intubated) Eyes: non-icteric ENT: oropharynx moist, other (ETT at 24 cm) Neck: supple, no JVD Ascultation: Bilateral: rhonchi (bilateral LT >>RT) Cardiovascular: regular rate and rhythm, other (tachycardic) Gastrointestinal: normoactive bowel sounds, non-distended Integumentary: normal Extremities: no cyanosis, no edema, other (RT femoral line in place) Neurologic: unable to assess (opens eyes spontaneously but does not follow commands . ) - Vital Signs Vital signs: Vital Signs - 12hr 12/24/17 12/24/17 12/24/17 00:00 00:57 01:00 Temperature 98.3 F Pulse Rate 101 H 119 H Pulse Rate [ 103 H Right From Monitor] Respiratory 28 H 19 Rate Blood Pressure 146/91 154/88 O2 Sat by Pulse 93 93 Oximetry O2 Sat by Pulse 97 Oximetry [ Assessment] 12/24/17 12/24/17 12/24/17 02:00 03:00 04:00 Temperature 99.2 F Pulse Rate 101 H 98 H 101 H Pulse Rate [ 104 H Right From Monitor] Respiratory 28 H 26 H 25 H Rate Blood Pressure 145/85 141/80 148/84 O2 Sat by Pulse 94 92 92 Oximetry O2 Sat by Pulse Oximetry [ Assessment] 12/24/17 12/24/17 12/24/17 05:00 06:00 07:00 Temperature Pulse Rate 104 H 96 H 105 H Pulse Rate [ Right From Monitor] Respiratory 26 H 26 H 23 Rate Blood Pressure 161/87 131/81 151/95 O2 Sat by Pulse 94 97 93 Oximetry O2 Sat by Pulse Oximetry [ Assessment] 12/24/17 12/24/17 12/24/17 08:00 09:00 09:01 Temperature 98.3 F Pulse Rate 105 H 106 H 108 H Pulse Rate [ 101 H Right From Monitor] Respiratory 27 H 25 H Rate Blood Pressure 139/83 139/83 150/89 O2 Sat by Pulse 95 100 Oximetry O2 Sat by Pulse Oximetry [ Assessment] 12/24/17 12/24/17 10:00 11:00 Temperature Pulse Rate 98 H 99 H Pulse Rate [ Right From Monitor] Respiratory 27 H 25 H Rate Blood Pressure 147/88 143/83 O2 Sat by Pulse 95 97 Oximetry O2 Sat by Pulse Oximetry [ Assessment] - Lab 12/24/17 03:17 12/24/17 03:17 Most recent lab results Calcium 7.5 mg/dL (8.4-10.2) L 12/24/17 03:17 Phosphorus 1.60 mg/dL (2.5-4.5) L 12/20/17 19:00 Magnesium 1.60 mg/dL (1.7-2.3) L 12/24/17 03:17 Urine Creatinine 55.8 mg/dL (0.1-20.0) H 12/22/17 10:50
[2017-12-24] MEDS: KCL 20 MEQ in D5W 1,000 ML IV SCH ×2 (13:17→22:35)
--- NOTE | 2017-12-24 14:13 | Progress Note ---
Assessment and Plan Imp: 1. CVA 2. Hemiparesis 3. Aspiration pneumonitis related to above 4. Sepsis 2/2 peritonitis/PEG mal-position, better 5. DARYA 6. s/p Trach/PEG Rec: 1. Holding HD per renal; K and mag repletion per renal 2. ABX per ID -> Merrem/Diflucan 3. Abdominal drains as per surgery/IR 4. SCDs; GI PPx 5. Cont. Tpiece as tolerated; trach will need to be permanent for secretion clearance 6. Pulm status stable 7. Insurance denies LTAC coverage Long-term prognosis poor; no family present Subjective Date of service: 12/24/17 Principal diagnosis: Acute hypoxic respiratory failure, s/p Trach Interval history: Awake, alert. On 28% Tpiece and tolerating well. Unable to give history. Active Medications Acetaminophen (Tylenol) 650 mg FEEDTUBE Q6H PRN PRN Reason: Pain, Mild (1-3) Last Admin: 12/22/17 20:37 Dose: 650 mg Albumin Human ([place]x 25% (Albumin)) 25 gm IV TIM PRN PRN Reason: Hypotension Last Admin: 12/18/17 12:13 Dose: 25 gm Lipase/Protease/Amylase (Pancreaze Dr 10,500 Unit) 1 each FEEDTUBE PRN PRN PRN Reason: For Clogged Feeding Tube Dextrose (D50w (25gm) Syringe) 50 ml IV PRN PRN PRN Reason: Hypoglycemia Hydralazine HCl (Apresoline) 5 mg IV Q6HR PRN PRN Reason: Hypertension Last Admin: 12/17/17 04:14 Dose: 5 mg Hydromorphone HCl (Dilaudid) 1 mg IV Q3H PRN PRN Reason: Pain , Severe (7-10) Last Admin: 12/21/17 00:04 Dose: 1 mg Sodium Chloride (Nacl 0.9%) 100 mls @ 999 mls/hr IV TIM PRN PRN Reason: Hypotension Magnesium Sulfate (Magnesium Sulfate 4gm/100ml) 4 gm in 100 mls @ 25 mls/hr IV ONCE ONE Stop: 12/24/17 15:34 Last Admin: 12/24/17 11:15 Dose: 25 mls/hr Potassium Chloride 20 meq/ (Dextrose) 1,010 mls @ 100 mls/hr IV DIRECT OSIRIS Last Admin: 12/24/17 13:17 Dose: 100 mls/hr Lansoprazole (Prevacid Solutab) 30 mg FEEDTUBE BID [facility] Last Admin: 12/24/17 09:02 Dose: 30 mg Metoprolol Tartrate (Lopressor) 25 mg PO BID [facility] Last Admin: 12/24/17 09:01 Dose: 25 mg Ondansetron HCl (Zofran) 4 mg IV Q3H PRN PRN Reason: Nausea And Vomiting Last Admin: 12/17/17 20:46 Dose: 4 mg Potassium Chloride (Potassium Chloride) 40 meq FEEDTUBE QDAY [facility] Last Admin: 12/24/17 11:15 Dose: 40 meq Simple Syrup (Simple Syrup) 15 ml FEEDTUBE PRN PRN PRN Reason: Hypoglycemia Simple Syrup (Simple Syrup) 30 ml FEEDTUBE PRN PRN PRN Reason: Hypoglycemia Sodium Bicarbonate (Sodium Bicarbonate) 325 mg FEEDTUBE PRN PRN PRN Reason: For Clogged Feeding Tube Objective Vital Signs - 12hr 12/24/17 12/24/17 12/24/17 03:00 04:00 05:00 Temperature 99.2 F Pulse Rate 98 H 101 H 104 H Pulse Rate [ 104 H Right From Monitor] Respiratory 26 H 25 H 26 H Rate Blood Pressure 141/80 148/84 161/87 O2 Sat by Pulse 92 92 94 Oximetry 12/24/17 12/24/17 12/24/17 06:00 07:00 08:00 Temperature 98.3 F Pulse Rate 96 H 105 H 105 H Pulse Rate [ 101 H Right From Monitor] Respiratory 26 H 23 27 H Rate Blood Pressure 131/81 151/95 139/83 O2 Sat by Pulse 97 93 95 Oximetry 12/24/17 12/24/17 12/24/17 09:00 09:01 10:00 Temperature Pulse Rate 106 H 108 H 98 H Pulse Rate [ Right From Monitor] Respiratory 25 H 27 H Rate Blood Pressure 139/83 150/89 147/88 O2 Sat by Pulse 100 95 Oximetry 12/24/17 12/24/17 12/24/17 11:00 12:00 13:00 Temperature 98.7 F Pulse Rate 99 H 104 H 102 H Pulse Rate [ Right From Monitor] Respiratory 25 H 31 H 31 H Rate Blood Pressure 143/83 146/90 142/80 O2 Sat by Pulse 97 98 97 Oximetry 12/24/17 14:00 Temperature Pulse Rate 104 H Pulse Rate [ Right From Monitor] Respiratory 25 H Rate Blood Pressure 151/95 O2 Sat by Pulse 95 Oximetry Constitutional: no acute distress, alert Eyes: non-icteric ENT: oropharynx moist Neck: supple (trach in position) Effort: normal Ascultation: Bilateral: rhonchi (mild bilateral) Cardiovascular: regular rate and rhythm Gastrointestinal: normoactive bowel sounds, soft, non-tender, other (drains in place) Integumentary: normal Extremities: no cyanosis, pink and warm, edema (2+ bilateral LE edema) Neurologic: other (L hemiparesis,awake, response to my voice) Psychiatric: other (unable to assess) CBC and BMP: 12/24/17 03:17 12/24/17 03:17 ABG, PT/INR, D-dimer: ABG POC ABG pH 7.505 (7.35-7.45) H 11/23/17 04:56 POC ABG pCO2 26.3 (35-45) L 11/23/17 04:56 POC ABG pO2 100 (80-105) 11/23/17 04:56 POC ABG HCO3 20.8 11/23/17 04:56 POC ABG Total CO2 22 11/23/17 04:56 POC ABG O2 Sat 98 11/23/17 04:56 PT/INR, D-dimer PT 15.4 Sec. (12.2-14.9) H 12/14/17 05:11 INR 1.17 (0.87-1.13) H 12/14/17 05:11 Abnormal lab findings: Abnormal Labs 11/11/17 11/11/17 11/11/17 23:18 23:20 23:20 WBC RBC Hgb 10.4 L Hct 32.6 L D MCV MCH 27 L MCHC RDW 17.4 H Plt Count 105 L Lymph % (Auto) [place] % (Auto) Eos % (Auto) Lymph # [place] # Eos # Seg Neutrophils % Seg Neuts % (Manual) Lymphocytes % (Manual) 8.0 L Monocytes % (Manual) Eosinophils % (Manual) Nucleated RBC % 1.0 H Seg Neutrophils # Seg Neutrophils # Man Lymphocytes # (Manual) 0.7 L Monocytes # (Manual) Eosinophils # (Manual) PT INR POC ABG pH 7.550 H POC ABG pCO2 31.6 L POC ABG pO2 Sodium 146 H Potassium Chloride Carbon Dioxide BUN 26 H Creatinine 1.7 H D Glucose 133 H POC Glucose Lactic Acid Calcium Phosphorus Magnesium AST ALT Alkaline Phosphatase Troponin T 0.117 H* C-Reactive Protein Total Protein Albumin 2.5 L LDL Cholesterol Direct 42 L HDL Cholesterol 24 L Urine Creatinine Hepatitis C Antibody Crossmatch Crossmatch Prewarmed 11/11/17 11/12/17 11/12/17 23:20 00:23 00:23 WBC RBC Hgb Hct MCV MCH MCHC RDW Plt Count Lymph % (Auto) [place] % (Auto) Eos % (Auto) Lymph # [place] # Eos # Seg Neutrophils % Seg Neuts % (Manual) Lymphocytes % (Manual) Monocytes % (Manual) Eosinophils % (Manual) Nucleated RBC % Seg Neutrophils # Seg Neutrophils # Man Lymphocytes # (Manual) Monocytes # (Manual) Eosinophils # (Manual) PT 16.7 H INR 1.28 H POC ABG pH POC ABG pCO2 POC ABG pO2 Sodium Potassium Chloride Carbon Dioxide BUN Creatinine Glucose POC Glucose Lactic Acid 3.20 H* Calcium Phosphorus Magnesium AST ALT Alkaline Phosphatase Troponin T C-Reactive Protein 25.70 H Total Protein Albumin LDL Cholesterol Direct HDL Cholesterol Urine Creatinine Hepatitis C Antibody Crossmatch Crossmatch Prewarmed 11/12/17 11/12/17 11/12/17 00:46 01:27 01:27 WBC RBC Hgb Hct MCV MCH MCHC RDW Plt Count Lymph % (Auto) [place] % (Auto) Eos % (Auto) Lymph # [place] # Eos # Seg Neutrophils % Seg Neuts % (Manual) Lymphocytes % (Manual) Monocytes % (Manual) Eosinophils % (Manual) Nucleated RBC % Seg Neutrophils # Seg Neutrophils # Man Lymphocytes # (Manual) Monocytes # (Manual) Eosinophils # (Manual) PT INR POC ABG pH 7.495 H POC ABG pCO2 32.0 L POC ABG pO2 64 L Sodium Potassium Chloride Carbon Dioxide BUN Creatinine Glucose POC Glucose Lactic Acid 3.70 H* Calcium Phosphorus Magnesium AST ALT Alkaline Phosphatase Troponin T 0.096 H C-Reactive Protein Total Protein Albumin LDL Cholesterol Direct HDL Cholesterol Urine Creatinine Hepatitis C Antibody Crossmatch Crossmatch Prewarmed 11/12/17 11/12/17 11/12/17 03:21 04:50 06:27 WBC RBC Hgb Hct MCV MCH MCHC RDW Plt Count Lymph % (Auto) [place] % (Auto) Eos % (Auto) Lymph # [place] # Eos # Seg Neutrophils % Seg Neuts % (Manual) Lymphocytes % (Manual) Monocytes % (Manual) Eosinophils % (Manual) Nucleated RBC % Seg Neutrophils # Seg Neutrophils # Man Lymphocytes # (Manual) Monocytes # (Manual) Eosinophils # (Manual) PT INR POC ABG pH POC ABG pCO2 POC ABG pO2 109 H Sodium Potassium Chloride Carbon Dioxide BUN Creatinine Glucose POC Glucose Lactic Acid 3.80 H* 2.20 H* Calcium Phosphorus Magnesium AST ALT Alkaline Phosphatase Troponin T C-Reactive Protein Total Protein Albumin LDL Cholesterol Direct HDL Cholesterol Urine Creatinine Hepatitis C Antibody Crossmatch Crossmatch P[place]armed 11/12/17 11/12/17 11/12/17 09:24 09:24 09:24 WBC RBC Hgb 10.4 L Hct 33.4 L MCV MCH MCHC RDW Plt Count Lymph % (Auto) [place] % (Auto) Eos % (Auto) Lymph # [place] # Eos # Seg Neutrophils % Seg Neuts % (Manual) Lymphocytes % (Manual) Monocytes % (Manual) Eosinophils % (Manual) Nucleated RBC % Seg Neutrophils # Seg Neutrophils # Man Lymphocytes # (Manual) Monocytes # (Manual) Eosinophils # (Manual) PT INR POC ABG pH POC ABG pCO2 POC ABG pO2 Sodium Potassium Chloride Carbon Dioxide BUN Creatinine Glucose POC Glucose Lactic Acid 2.90 H* Calcium Phosphorus Magnesium AST ALT Alkaline Phosphatase Troponin T 0.091 H C-Reactive Protein Total Protein Albumin LDL Cholesterol Direct HDL Cholesterol Urine Creatinine Hepatitis C Antibody Crossmatch Crossmatch P[place]armed 11/12/17 11/12/17 11/12/17 12:56 20:03 Unknown WBC RBC Hgb Hct MCV MCH MCHC RDW Plt Count Lymph % (Auto) [place] % (Auto) Eos % (Auto) Lymph # [place] # Eos # Seg Neutrophils % Seg Neuts % (Manual) Lymphocytes % (Manual) Monocytes % (Manual) Eosinophils % (Manual) Nucleated RBC % Seg Neutrophils # Seg Neutrophils # Man Lymphocytes # (Manual) Monocytes # (Manual) Eosinophils # (Manual) PT INR POC ABG pH POC ABG pCO2 POC ABG pO2 Sodium Potassium Chloride Carbon Dioxide BUN Creatinine Glucose POC Glucose Lactic Acid 3.60 H* Calcium Phosphorus Magnesium AST ALT Alkaline Phosphatase Troponin T 0.102 H* 0.156 H* D C-Reactive Protein Total Protein Albumin LDL Cholesterol Direct HDL Cholesterol Urine Creatinine Hepatitis C Antibody Crossmatch Crossmatch P[place]armed 11/12/17 11/13/17 11/13/17 Unknown 04:50 04:50 WBC 12.2 H RBC 3.51 L Hgb 9.3 L Hct 30.1 L MCV MCH 26 L MCHC 31 L RDW 18.0 H Plt Count 128 L Lymph % (Auto) 8.6 L [place] % (Auto) 11.1 H Eos % (Auto) Lymph # 1.1 L [place] # 1.4 H Eos # Seg Neutrophils % 80.1 H Seg Neuts % (Manual) Lymphocytes % (Manual) Monocytes % (Manual) Eosinophils % (Manual) Nucleated RBC % Seg Neutrophils # 9.8 H Seg Neutrophils # Man Lymphocytes # (Manual) Monocytes # (Manual) Eosinophils # (Manual) PT INR POC ABG pH POC ABG pCO2 POC ABG pO2 Sodium 149 H Potassium 5.1 H Chloride 114.4 H Carbon Dioxide 18 L BUN 52 H Creatinine 3.3 H D Glucose 129 H POC Glucose Lactic Acid Calcium 7.9 L Phosphorus Magnesium AST ALT Alkaline Phosphatase Troponin T 0.098 H C-Reactive Protein Total Protein Albumin LDL Cholesterol Direct HDL Cholesterol Urine Creatinine Hepatitis C Antibody Crossmatch Crossmatch P[place]armed 11/13/17 11/13/17 11/14/17 04:51 09:34 04:21 WBC RBC Hgb Hct MCV MCH MCHC RDW Plt Count Lymph % (Auto) [place] % (Auto) Eos % (Auto) Lymph # [place] # Eos # Seg Neutrophils % Seg Neuts % (Manual) Lymphocytes % (Manual) Monocytes % (Manual) Eosinophils % (Manual) Nucleated RBC % Seg Neutrophils # Seg Neutrophils # Man Lymphocytes # (Manual) Monocytes # (Manual) Eosinophils # (Manual) PT INR POC ABG pH POC ABG pCO2 30.1 L 29.8 L POC ABG pO2 135 H Sodium Potassium Chloride Carbon Dioxide BUN Creatinine Glucose POC Glucose Lactic Acid 2.10 H* Calcium Phosphorus Magnesium AST ALT Alkaline Phosphatase Troponin T C-Reactive Protein Total Protein Albumin LDL Cholesterol Direct HDL Cholesterol Urine Creatinine Hepatitis C Antibody Crossmatch Crossmatch P[place]armed 11/15/17 11/15/17 11/16/17 04:52 15:50 05:17 WBC RBC Hgb Hct MCV MCH MCHC RDW Plt Count Lymph % (Auto) [place] % (Auto) Eos % (Auto) Lymph # [place] # Eos # Seg Neutrophils % Seg Neuts % (Manual) Lymphocytes % (Manual) Monocytes % (Manual) Eosinophils % (Manual) Nucleated RBC % Seg Neutrophils # Seg Neutrophils # Man Lymphocytes # (Manual) Monocytes # (Manual) Eosinophils # (Manual) PT INR POC ABG pH POC ABG pCO2 29.5 L 31.5 L POC ABG pO2 115 H 122 H Sodium 154 H Potassium Chloride 117.9 H Carbon Dioxide 19 L BUN 87 H Creatinine 4.1 H Glucose POC Glucose Lactic Acid Calcium 8.1 L Phosphorus Magnesium AST ALT Alkaline Phosphatase Troponin T C-Reactive Protein Total Protein Albumin LDL Cholesterol Direct HDL Cholesterol Urine Creatinine Hepatitis C Antibody Crossmatch Crossmatch P[place]armed 11/16/17 11/17/17 11/17/17 16:37 04:07 10:00 WBC 14.7 H RBC 3.23 L Hgb 8.3 L Hct 28.1 L MCV MCH 26 L MCHC 30 L RDW 18.8 H Plt Count Lymph % (Auto) [place] % (Auto) Eos % (Auto) Lymph # [place] # Eos # Seg Neutrophils % Seg Neuts % (Manual) 75 H Lymphocytes % (Manual) 8.0 L Monocytes % (Manual) Eosinophils % (Manual) Nucleated RBC % 1.0 H Seg Neutrophils # Seg Neutrophils # Man 11.0 H Lymphocytes # (Manual) Monocytes # (Manual) 0.9 H Eosinophils # (Manual) PT INR POC ABG pH POC ABG pCO2 POC ABG pO2 Sodium 153 H 155 H Potassium Chloride 117.3 H 119.4 H Carbon Dioxide 19 L 20 L BUN 90 H 89 H Creatinine 3.9 H 3.6 H Glucose 111 H 115 H POC Glucose Lactic Acid Calcium 8.1 L 8.0 L Phosphorus Magnesium AST ALT Alkaline Phosphatase Troponin T C-Reactive Protein Total Protein Albumin LDL Cholesterol Direct HDL Cholesterol Urine Creatinine Hepatitis C Antibody Crossmatch Crossmatch P[place]armed 11/18/17 11/18/17 11/18/17 04:34 04:34 04:34 WBC 15.5 H RBC 3.13 L Hgb 8.1 L Hct 26.3 L MCV MCH 26 L MCHC 31 L RDW 18.6 H Plt Count Lymph % (Auto) [place] % (Auto) Eos % (Auto) Lymph # [place] # Eos # Seg Neutrophils % Seg Neuts % (Manual) 81.0 H Lymphocytes % (Manual) 7.0 L Monocytes % (Manual) Eosinophils % (Manual) Nucleated RBC % 1.0 H Seg Neutrophils # Seg Neutrophils # Man 12.6 H Lymphocytes # (Manual) 1.1 L Monocytes # (Manual) Eosinophils # (Manual) PT 16.7 H INR 1.30 H POC ABG pH POC ABG pCO2 POC ABG pO2 Sodium 155 H Potassium 3.2 L Chloride 121.0 H Carbon Dioxide 20 L BUN 74 H Creatinine 2.9 H Glucose 126 H POC Glucose Lactic Acid Calcium 7.9 L Phosphorus Magnesium AST ALT Alkaline Phosphatase Troponin T C-Reactive Protein Total Protein Albumin LDL Cholesterol Direct HDL Cholesterol Urine Creatinine Hepatitis C Antibody Crossmatch Crossmatch P[place]armed 11/19/17 11/19/17 11/20/17 04:44 04:44 00:38 WBC 19.0 H 22.2 H RBC 3.20 L 3.17 L Hgb 8.4 L 7.9 L Hct 27.9 L 26.4 L MCV 83 L MCH 26 L 25 L MCHC 30 L 30 L RDW 19.1 H 18.9 H Plt Count Lymph % (Auto) [place] % (Auto) Eos % (Auto) Lymph # [place] # Eos # Seg Neutrophils % Seg Neuts % (Manual) 83.0 H Lymphocytes % (Manual) 3.0 L Monocytes % (Manual) 9.0 H Eosinophils % (Manual) Nucleated RBC % Seg Neutrophils # Seg Neutrophils # Man 18.4 H Lymphocytes # (Manual) 0.7 L Monocytes # (Manual) 2.0 H Eosinophils # (Manual) PT INR POC ABG pH POC ABG pCO2 POC ABG pO2 Sodium 152 H Potassium Chloride 117.1 H Carbon Dioxide 17 L BUN 66 H Creatinine 2.8 H Glucose 119 H POC Glucose Lactic Acid Calcium 7.8 L Phosphorus Magnesium 2.70 H AST ALT Alkaline Phosphatase Troponin T C-Reactive Protein Total Protein Albumin LDL Cholesterol Direct HDL Cholesterol Urine Creatinine Hepatitis C Antibody Crossmatch Crossmatch P[place]armed 11/20/17 11/20/17 11/20/17 03:29 04:48 13:38 WBC RBC Hgb Hct MCV MCH MCHC RDW Plt Count Lymph % (Auto) [place] % (Auto) Eos % (Auto) Lymph # [place] # Eos # Seg Neutrophils % Seg Neuts % (Manual) Lymphocytes % (Manual) Monocytes % (Manual) Eosinophils % (Manual) Nucleated RBC % Seg Neutrophils # Seg Neutrophils # Man Lymphocytes # (Manual) Monocytes # (Manual) Eosinophils # (Manual) PT INR POC ABG pH POC ABG pCO2 29.4 L POC ABG pO2 Sodium 148 H Potassium 3.4 L Chloride 113.7 H Carbon Dioxide 18 L BUN 59 H Creatinine 2.7 H Glucose 113 H POC Glucose 128 H Lactic Acid Calcium 7.8 L Phosphorus Magnesium AST ALT Alkaline Phosphatase Troponin T C-Reactive Protein Total Protein Albumin LDL Cholesterol Direct HDL Cholesterol Urine Creatinine Hepatitis C Antibody Crossmatch Crossmatch P[place]armed 11/20/17 11/20/17 11/21/17 17:38 23:40 00:13 WBC RBC Hgb 8.4 L Hct 28.0 L MCV MCH MCHC RDW Plt Count Lymph % (Auto) [place] % (Auto) Eos % (Auto) Lymph # [place] # Eos # Seg Neutrophils % Seg Neuts % (Manual) Lymphocytes % (Manual) Monocytes % (Manual) Eosinophils % (Manual) Nucleated RBC % Seg Neutrophils # Seg Neutrophils # Man Lymphocytes # (Manual) Monocytes # (Manual) Eosinophils # (Manual) PT INR POC ABG pH POC ABG pCO2 POC ABG pO2 Sodium Potassium Chloride Carbon Dioxide BUN Creatinine Glucose POC Glucose 115 H 145 H Lactic Acid Calcium Phosphorus Magnesium AST ALT Alkaline Phosphatase Troponin T C-Reactive Protein Total Protein Albumin LDL Cholesterol Direct HDL Cholesterol Urine Creatinine Hepatitis C Antibody Crossmatch Crossmatch P[place]armed 11/21/17 11/21/17 11/21/17 04:30 04:30 04:58 WBC 21.0 H RBC Hgb 9.6 L Hct 32.7 L MCV MCH 25 L MCHC 29 L RDW 19.7 H Plt Count 746 H Lymph % (Auto) [place] % (Auto) Eos % (Auto) Lymph # [place] # Eos # Seg Neutrophils % Seg Neuts % (Manual) Lymphocytes % (Manual) Monocytes % (Manual) Eosinophils % (Manual) Nucleated RBC % Seg Neutrophils # Seg Neutrophils # Man Lymphocytes # (Manual) Monocytes # (Manual) Eosinophils # (Manual) PT INR POC ABG pH POC ABG pCO2 POC ABG pO2 Sodium Potassium Chloride 109.4 H Carbon Dioxide 14 L BUN 59 H Creatinine 3.0 H Glucose 137 H POC Glucose 132 H Lactic Acid Calcium 7.6 L Phosphorus Magnesium AST ALT Alkaline Phosphatase Troponin T C-Reactive Protein Total Protein Albumin LDL Cholesterol Direct HDL Cholesterol Urine Creatinine Hepatitis C Antibody Crossmatch Crossmatch P[place]armed 11/21/17 11/21/17 11/21/17 06:30 13:43 14:17 WBC 38.2 H RBC Hgb 9.0 L Hct 32.3 L MCV MCH 25 L MCHC 28 L RDW 20.0 H Plt Count 766 H Lymph % (Auto) [place] % (Auto) Eos % (Auto) Lymph # [place] # Eos # Seg Neutrophils % Seg Neuts % (Manual) 85.0 H Lymphocytes % (Manual) 1.0 L Monocytes % (Manual) Eosinophils % (Manual) Nucleated RBC % 2.0 H Seg Neutrophils # Seg Neutrophils # Man 32.5 H Lymphocytes # (Manual) 0.4 L Monocytes # (Manual) 2.3 H Eosinophils # (Manual) PT INR POC ABG pH POC ABG pCO2 18.6 L POC ABG pO2 121 H Sodium 146 H Potassium Chloride 110.9 H Carbon Dioxide 11 L BUN 62 H Creatinine 4.0 H Glucose 64 L POC Glucose Lactic Acid Calcium 7.6 L Phosphorus Magnesium AST ALT Alkaline Phosphatase Troponin T C-Reactive Protein Total Protein Albumin LDL Cholesterol Direct HDL Cholesterol Urine Creatinine Hepatitis C Antibody Crossmatch Crossmatch [place]armed 11/21/17 11/21/17 11/22/17 14:17 19:09 00:05 WBC RBC Hgb Hct MCV MCH MCHC RDW Plt Count Lymph % (Auto) [place] % (Auto) Eos % (Auto) Lymph # [place] # Eos # Seg Neutrophils % Seg Neuts % (Manual) Lymphocytes % (Manual) Monocytes % (Manual) Eosinophils % (Manual) Nucleated RBC % Seg Neutrophils # Seg Neutrophils # Man Lymphocytes # (Manual) Monocytes # (Manual) Eosinophils # (Manual) PT INR POC ABG pH POC ABG pCO2 20.0 L POC ABG pO2 Sodium Potassium Chloride Carbon Dioxide BUN Creatinine Glucose POC Glucose 127 H Lactic Acid 7.70 H* Calcium Phosphorus Magnesium AST ALT Alkaline Phosphatase Troponin T C-Reactive Protein Total Protein Albumin LDL Cholesterol Direct HDL Cholesterol Urine Creatinine Hepatitis C Antibody Crossmatch Crossmatch P[place]armed 11/22/17 11/22/17 11/22/17 03:53 06:00 07:25 WBC RBC Hgb Hct MCV MCH MCHC RDW Plt Count Lymph % (Auto) [place] % (Auto) Eos % (Auto) Lymph # [place] # Eos # Seg Neutrophils % Seg Neuts % (Manual) Lymphocytes % (Manual) Monocytes % (Manual) Eosinophils % (Manual) Nucleated RBC % Seg Neutrophils # Seg Neutrophils # Man Lymphocytes # (Manual) Monocytes # (Manual) Eosinophils # (Manual) PT INR POC ABG pH POC ABG pCO2 22.2 L POC ABG pO2 Sodium 147 H Potassium Chloride 111.9 H Carbon Dioxide 16 L BUN 72 H Creatinine 5.1 H Glucose 181 H POC Glucose 180 H Lactic Acid Calcium 7.1 L Phosphorus Magnesium AST ALT Alkaline Phosphatase Troponin T C-Reactive Protein Total Protein Albumin LDL Cholesterol Direct HDL Cholesterol Urine Creatinine Hepatitis C Antibody Crossmatch Crossmatch [place]armed 11/22/17 11/22/17 11/22/17 07:25 07:25 12:05 WBC 31.4 H RBC 3.22 L Hgb 8.0 L Hct 26.7 L MCV 83 L MCH 25 L MCHC 30 L RDW 19.4 H Plt Count 602 H Lymph % (Auto) [place] % (Auto) Eos % (Auto) Lymph # [place] # Eos # Seg Neutrophils % Seg Neuts % (Manual) Lymphocytes % (Manual) Monocytes % (Manual) Eosinophils % (Manual) Nucleated RBC % Seg Neutrophils # Seg Neutrophils # Man Lymphocytes # (Manual) Monocytes # (Manual) Eosinophils # (Manual) PT INR POC ABG pH POC ABG pCO2 POC ABG pO2 Sodium Potassium Chloride Carbon Dioxide BUN Creatinine Glucose POC Glucose 182 H Lactic Acid 5.00 H* Calcium Phosphorus Magnesium AST ALT Alkaline Phosphatase Troponin T C-Reactive Protein Total Protein Albumin LDL Cholesterol Direct HDL Cholesterol Urine Creatinine Hepatitis C Antibody Crossmatch Crossmatch P[place]armed 11/22/17 11/23/17 11/23/17 19:45 01:28 04:56 WBC RBC Hgb Hct MCV MCH MCHC RDW Plt Count Lymph % (Auto) [place] % (Auto) Eos % (Auto) Lymph # [place] # Eos # Seg Neutrophils % Seg Neuts % (Manual) Lymphocytes % (Manual) Monocytes % (Manual) Eosinophils % (Manual) Nucleated RBC % Seg Neutrophils # Seg Neutrophils # Man Lymphocytes # (Manual) Monocytes # (Manual) Eosinophils # (Manual) PT INR POC ABG pH 7.505 H POC ABG pCO2 26.3 L POC ABG pO2 Sodium Potassium Chloride Carbon Dioxide BUN Creatinine Glucose POC Glucose 165 H Lactic Acid Calcium Phosphorus Magnesium AST ALT Alkaline Phosphatase Troponin T C-Reactive Protein Total Protein Albumin LDL Cholesterol Direct HDL Cholesterol Urine Creatinine Hepatitis C Antibody Reactive A Crossmatch Crossmatch P[place]armed 11/23/17 11/23/17 11/23/17 07:05 12:32 17:53 WBC RBC Hgb Hct MCV MCH MCHC RDW Plt Count Lymph % (Auto) [place] % (Auto) Eos % (Auto) Lymph # [place] # Eos # Seg Neutrophils % Seg Neuts % (Manual) Lymphocytes % (Manual) Monocytes % (Manual) Eosinophils % (Manual) Nucleated RBC % Seg Neutrophils # Seg Neutrophils # Man Lymphocytes # (Manual) Monocytes # (Manual) Eosinophils # (Manual) PT INR POC ABG pH POC ABG pCO2 POC ABG pO2 Sodium Potassium Chloride Carbon Dioxide 18 L BUN 61 H Creatinine 4.2 H Glucose 153 H POC Glucose 138 H 173 H Lactic Acid Calcium 7.5 L Phosphorus Magnesium AST ALT Alkaline Phosphatase Troponin T C-Reactive Protein Total Protein Albumin LDL Cholesterol Direct HDL Cholesterol Urine Creatinine Hepatitis C Antibody Crossmatch Crossmatch [place]armed 11/23/17 11/24/17 11/24/17 23:41 05:42 05:42 WBC 21.5 H RBC 2.48 L Hgb 6.2 L Hct 20.3 L D MCV 82 L MCH 25 L MCHC 31 L RDW 18.9 H Plt Count Lymph % (Auto) [place] % (Auto) Eos % (Auto) Lymph # [place] # Eos # Seg Neutrophils % Seg Neuts % (Manual) 94.0 H Lymphocytes % (Manual) 3.0 L Monocytes % (Manual) Eosinophils % (Manual) Nucleated RBC % Seg Neutrophils # Seg Neutrophils # Man 20.2 H Lymphocytes # (Manual) 0.6 L Monocytes # (Manual) Eosinophils # (Manual) PT INR POC ABG pH POC ABG pCO2 POC ABG pO2 Sodium 149 H Potassium 2.8 L* D Chloride 113.9 H Carbon Dioxide 19 L BUN 31 H Creatinine 2.3 H Glucose 103 H POC Glucose 133 H Lactic Acid Calcium 5.3 L* D Phosphorus Magnesium 1.30 L AST ALT Alkaline Phosphatase Troponin T C-Reactive Protein Total Protein Albumin LDL Cholesterol Direct HDL Cholesterol Urine Creatinine Hepatitis C Antibody Crossmatch Crossmatch [place]armed 11/24/17 11/24/17 11/24/17 05:42 08:27 08:27 WBC RBC Hgb Hct MCV MCH MCHC RDW Plt Count Lymph % (Auto) [place] % (Auto) Eos % (Auto) Lymph # [place] # Eos # Seg Neutrophils % Seg Neuts % (Manual) Lymphocytes % (Manual) Monocytes % (Manual) Eosinophils % (Manual) Nucleated RBC % Seg Neutrophils # Seg Neutrophils # Man Lymphocytes # (Manual) Monocytes # (Manual) Eosinophils # (Manual) PT INR POC ABG pH POC ABG pCO2 POC ABG pO2 Sodium Potassium Chloride Carbon Dioxide BUN Creatinine Glucose POC Glucose Lactic Acid 5.40 H* 5.20 H* Calcium Phosphorus Magnesium AST ALT Alkaline Phosphatase Troponin T C-Reactive Protein Total Protein Albumin LDL Cholesterol Direct HDL Cholesterol Urine Creatinine Hepatitis C Antibody Crossmatch See Detail Crossmatch P[facility]armed 11/24/17 11/24/17 11/24/17 12:13 17:22 21:53 WBC 23.0 H RBC 3.32 L Hgb 8.8 L Hct 27.1 L D MCV 82 L MCH 26 L MCHC RDW 17.3 H Plt Count Lymph % (Auto) [place] % (Auto) Eos % (Auto) Lymph # [place] # Eos # Seg Neutrophils % Seg Neuts % (Manual) Lymphocytes % (Manual) Monocytes % (Manual) Eosinophils % (Manual) Nucleated RBC % Seg Neutrophils # Seg Neutrophils # Man Lymphocytes # (Manual) Monocytes # (Manual) Eosinophils # (Manual) PT INR POC ABG pH POC ABG pCO2 POC ABG pO2 Sodium Potassium Chloride Carbon Dioxide BUN Creatinine Glucose POC Glucose 138 H 180 H Lactic Acid Calcium Phosphorus Magnesium AST ALT Alkaline Phosphatase Troponin T C-Reactive Protein Total Protein Albumin LDL Cholesterol Direct HDL Cholesterol Urine Creatinine Hepatitis C Antibody Crossmatch Crossmatch [place] 11/24/17 11/24/17 11/25/17 21:53 23:28 04:19 WBC RBC Hgb Hct MCV MCH MCHC RDW Plt Count Lymph % (Auto) [place] % (Auto) Eos % (Auto) Lymph # [place] # Eos # Seg Neutrophils % Seg Neuts % (Manual) Lymphocytes % (Manual) Monocytes % (Manual) Eosinophils % (Manual) Nucleated RBC % Seg Neutrophils # Seg Neutrophils # Man Lymphocytes # (Manual) Monocytes # (Manual) Eosinophils # (Manual) PT INR POC ABG pH POC ABG pCO2 POC ABG pO2 Sodium Potassium Chloride 96.3 L Carbon Dioxide BUN 28 H 31 H Creatinine 2.3 H 2.6 H Glucose 125 H 101 H POC Glucose 111 H Lactic Acid Calcium 7.5 L D 7.4 L Phosphorus Magnesium AST 170 H ALT 179 H Alkaline Phosphatase 175 H Troponin T C-Reactive Protein Total Protein 5.5 L Albumin 1.8 L LDL Cholesterol Direct HDL Cholesterol Urine Creatinine Hepatitis C Antibody Crossmatch Crossmatch [facility] 11/25/17 11/25/17 11/26/17 04:19 04:19 06:29 WBC 22.5 H RBC 3.48 L Hgb 9.1 L Hct 28.3 L MCV 81 L MCH 26 L MCHC RDW 17.4 H Plt Count Lymph % (Auto) [place] % (Auto) Eos % (Auto) Lymph # [place] # Eos # Seg Neutrophils % Seg Neuts % (Manual) Lymphocytes % (Manual) Monocytes % (Manual) Eosinophils % (Manual) Nucleated RBC % Seg Neutrophils # Seg Neutrophils # Man Lymphocytes # (Manual) Monocytes # (Manual) Eosinophils # (Manual) PT 23.6 H INR 1.96 H POC ABG pH POC ABG pCO2 POC ABG pO2 Sodium Potassium Chloride Carbon Dioxide BUN 31 H Creatinine 2.6 H Glucose 101 H POC Glucose Lactic Acid Calcium 7.5 L Phosphorus Magnesium AST ALT Alkaline Phosphatase Troponin T C-Reactive Protein Total Protein Albumin LDL Cholesterol Direct HDL Cholesterol Urine Creatinine Hepatitis C Antibody Crossmatch Crossmatch [facility] 11/26/17 11/27/17 11/27/17 06:34 04:06 04:06 WBC 11.3 H RBC 3.13 L Hgb 8.4 L Hct 25.8 L MCV 82 L MCH 27 L MCHC RDW 17.7 H Plt Count Lymph % (Auto) 7.4 L [place] % (Auto) Eos % (Auto) Lymph # 0.8 L [place] # Eos # Seg Neutrophils % 83.7 H Seg Neuts % (Manual) Lymphocytes % (Manual) Monocytes % (Manual) Eosinophils % (Manual) Nucleated RBC % Seg Neutrophils # 9.5 H Seg Neutrophils # Man Lymphocytes # (Manual) Monocytes # (Manual) Eosinophils # (Manual) PT INR POC ABG pH POC ABG pCO2 POC ABG pO2 Sodium Potassium Chloride 97.9 L Carbon Dioxide BUN 43 H 29 H Creatinine 3.5 H 2.9 H Glucose POC Glucose Lactic Acid Calcium 7.5 L 8.1 L Phosphorus Magnesium AST ALT Alkaline Phosphatase Troponin T C-Reactive Protein Total Protein Albumin LDL Cholesterol Direct HDL Cholesterol Urine Creatinine Hepatitis C Antibody Crossmatch Crossmatch [facility] 11/27/17 11/28/17 11/28/17 18:11 00:16 03:50 WBC RBC Hgb Hct MCV MCH MCHC RDW Plt Count Lymph % (Auto) [place] % (Auto) Eos % (Auto) Lymph # [place] # Eos # Seg Neutrophils % Seg Neuts % (Manual) Lymphocytes % (Manual) Monocytes % (Manual) Eosinophils % (Manual) Nucleated RBC % Seg Neutrophils # Seg Neutrophils # Man Lymphocytes # (Manual) Monocytes # (Manual) Eosinophils # (Manual) PT INR POC ABG pH POC ABG pCO2 POC ABG pO2 Sodium Potassium Chloride Carbon Dioxide BUN 39 H Creatinine 4.1 H Glucose 108 H POC Glucose 110 H 124 H Lactic Acid Calcium 7.9 L Phosphorus Magnesium AST ALT Alkaline Phosphatase Troponin T C-Reactive Protein Total Protein Albumin LDL Cholesterol Direct HDL Cholesterol Urine Creatinine Hepatitis C Antibody Crossmatch Crossmatch [facility] 11/28/17 11/28/17 11/28/17 05:03 11:36 17:42 WBC RBC Hgb Hct MCV MCH MCHC RDW Plt Count Lymph % (Auto) [place] % (Auto) Eos % (Auto) Lymph # [place] # Eos # Seg Neutrophils % Seg Neuts % (Manual) Lymphocytes % (Manual) Monocytes % (Manual) Eosinophils % (Manual) Nucleated RBC % Seg Neutrophils # Seg Neutrophils # Man Lymphocytes # (Manual) Monocytes # (Manual) Eosinophils # (Manual) PT INR POC ABG pH POC ABG pCO2 POC ABG pO2 Sodium Potassium Chloride Carbon Dioxide BUN Creatinine Glucose POC Glucose 134 H 114 H 119 H Lactic Acid Calcium Phosphorus Magnesium AST ALT Alkaline Phosphatase Troponin T C-Reactive Protein Total Protein Albumin LDL Cholesterol Direct HDL Cholesterol Urine Creatinine Hepatitis C Antibody Crossmatch Crossmatch [facility] 11/29/17 11/29/17 11/29/17 00:22 05:25 05:25 WBC 12.3 H RBC 3.34 L Hgb 8.6 L Hct 27.3 L MCV 82 L MCH 26 L MCHC RDW 18.5 H Plt Count Lymph % (Auto) 3.7 L [place] % (Auto) 7.7 H Eos % (Auto) Lymph # 0.5 L [place] # 1.0 H Eos # Seg Neutrophils % 86.5 H Seg Neuts % (Manual) Lymphocytes % (Manual) Monocytes % (Manual) Eosinophils % (Manual) Nucleated RBC % Seg Neutrophils # 10.7 H Seg Neutrophils # Man Lymphocytes # (Manual) Monocytes # (Manual) Eosinophils # (Manual) PT INR POC ABG pH POC ABG pCO2 POC ABG pO2 Sodium Potassium Chloride Carbon Dioxide BUN 29 H Creatinine 3.5 H Glucose 109 H POC Glucose 137 H Lactic Acid Calcium 7.8 L Phosphorus Magnesium AST ALT Alkaline Phosphatase Troponin T C-Reactive Protein Total Protein Albumin LDL Cholesterol Direct HDL Cholesterol Urine Creatinine Hepatitis C Antibody Crossmatch Crossmatch [facility] 11/29/17 11/30/17 11/30/17 05:26 00:26 04:17 WBC RBC Hgb Hct MCV MCH MCHC RDW Plt Count Lymph % (Auto) [place] % (Auto) Eos % (Auto) Lymph # [place] # Eos # Seg Neutrophils % Seg Neuts % (Manual) Lymphocytes % (Manual) Monocytes % (Manual) Eosinophils % (Manual) Nucleated RBC % Seg Neutrophils # Seg Neutrophils # Man Lymphocytes # (Manual) Monocytes # (Manual) Eosinophils # (Manual) PT INR POC ABG pH POC ABG pCO2 POC ABG pO2 Sodium Potassium Chloride Carbon Dioxide BUN 38 H Creatinine 4.3 H Glucose 109 H POC Glucose 129 H 152 H Lactic Acid Calcium 7.8 L Phosphorus Magnesium AST ALT Alkaline Phosphatase Troponin T C-Reactive Protein Total Protein Albumin LDL Cholesterol Direct HDL Cholesterol Urine Creatinine Hepatitis C Antibody Crossmatch Crossmatch [facility] 11/30/17 11/30/17 11/30/17 12:17 16:23 23:35 WBC RBC Hgb Hct MCV MCH MCHC RDW Plt Count Lymph % (Auto) [place] % (Auto) Eos % (Auto) Lymph # [place] # Eos # Seg Neutrophils % Seg Neuts % (Manual) Lymphocytes % (Manual) Monocytes % (Manual) Eosinophils % (Manual) Nucleated RBC % Seg Neutrophils # Seg Neutrophils # Man Lymphocytes # (Manual) Monocytes # (Manual) Eosinophils # (Manual) PT INR POC ABG pH POC ABG pCO2 POC ABG pO2 Sodium Potassium Chloride Carbon Dioxide BUN Creatinine Glucose POC Glucose 170 H 114 H 122 H Lactic Acid Calcium Phosphorus Magnesium AST ALT Alkaline Phosphatase Troponin T C-Reactive Protein Total Protein Albumin LDL Cholesterol Direct HDL Cholesterol Urine Creatinine Hepatitis C Antibody Crossmatch Crossmatch [facility] 12/01/17 12/01/17 12/01/17 04:09 04:09 12:17 WBC 14.1 H RBC 3.32 L Hgb 8.6 L Hct 27.0 L MCV 81 L MCH 26 L MCHC RDW 18.7 H Plt Count Lymph % (Auto) 5.5 L [place] % (Auto) 9.7 H Eos % (Auto) Lymph # 0.8 L [place] # 1.4 H Eos # Seg Neutrophils % 82.9 H Seg Neuts % (Manual) Lymphocytes % (Manual) Monocytes % (Manual) Eosinophils % (Manual) Nucleated RBC % Seg Neutrophils # 11.7 H Seg Neutrophils # Man Lymphocytes # (Manual) Monocytes # (Manual) Eosinophils # (Manual) PT INR POC ABG pH POC ABG pCO2 POC ABG pO2 Sodium Potassium 3.4 L Chloride Carbon Dioxide BUN 21 H Creatinine 3.0 H Glucose 108 H POC Glucose 126 H Lactic Acid Calcium 8.0 L Phosphorus Magnesium AST ALT Alkaline Phosphatase Troponin T C-Reactive Protein Total Protein Albumin LDL Cholesterol Direct HDL Cholesterol Urine Creatinine Hepatitis C Antibody Crossmatch Crossmatch [facility] 12/02/17 12/03/17 12/03/17 23:46 02:52 05:54 WBC 17.2 H RBC 3.21 L Hgb 8.5 L Hct 25.8 L MCV 80 L MCH 26 L MCHC RDW 18.4 H Plt Count 128 L Lymph % (Auto) [place] % (Auto) Eos % (Auto) Lymph # [place] # Eos # Seg Neutrophils % Seg Neuts % (Manual) Lymphocytes % (Manual) Monocytes % (Manual) Eosinophils % (Manual) Nucleated RBC % Seg Neutrophils # Seg Neutrophils # Man Lymphocytes # (Manual) Monocytes # (Manual) Eosinophils # (Manual) PT INR POC ABG pH POC ABG pCO2 POC ABG pO2 Sodium Potassium Chloride Carbon Dioxide BUN Creatinine Glucose POC Glucose 125 H 107 H Lactic Acid Calcium Phosphorus Magnesium AST ALT Alkaline Phosphatase Troponin T C-Reactive Protein Total Protein Albumin LDL Cholesterol Direct HDL Cholesterol Urine Creatinine Hepatitis C Antibody Crossmatch Crossmatch [facility] 12/03/17 12/03/17 12/04/17 12:05 Unknown 12:26 WBC RBC Hgb Hct MCV MCH MCHC RDW Plt Count Lymph % (Auto) [place] % (Auto) Eos % (Auto) Lymph # [place] # Eos # Seg Neutrophils % Seg Neuts % (Manual) Lymphocytes % (Manual) Monocytes % (Manual) Eosinophils % (Manual) Nucleated RBC % Seg Neutrophils # Seg Neutrophils # Man Lymphocytes # (Manual) Monocytes # (Manual) Eosinophils # (Manual) PT INR POC ABG pH POC ABG pCO2 POC ABG pO2 Sodium Potassium Chloride Carbon Dioxide BUN 21 H Creatinine 2.8 H Glucose 113 H POC Glucose 106 H 119 H Lactic Acid Calcium Phosphorus Magnesium AST ALT Alkaline Phosphatase Troponin T C-Reactive Protein Total Protein Albumin LDL Cholesterol Direct HDL Cholesterol Urine Creatinine Hepatitis C Antibody Crossmatch Crossmatch [facility] 12/04/17 12/05/17 12/05/17 17:57 00:52 04:05 WBC RBC 2.96 L Hgb 7.7 L Hct 24.2 L MCV 82 L MCH 26 L MCHC RDW 18.8 H Plt Count 105 L Lymph % (Auto) 10.6 L [place] % (Auto) 12.1 H Eos % (Auto) 5.2 H Lymph # 1.1 L [place] # 1.3 H Eos # 0.5 H Seg Neutrophils % 71.3 H Seg Neuts % (Manual) Lymphocytes % (Manual) Monocytes % (Manual) Eosinophils % (Manual) Nucleated RBC % Seg Neutrophils # Seg Neutrophils # Man Lymphocytes # (Manual) Monocytes # (Manual) Eosinophils # (Manual) PT INR POC ABG pH POC ABG pCO2 POC ABG pO2 Sodium Potassium Chloride Carbon Dioxide BUN Creatinine Glucose POC Glucose 140 H 117 H Lactic Acid Calcium Phosphorus Magnesium AST ALT Alkaline Phosphatase Troponin T C-Reactive Protein Total Protein Albumin LDL Cholesterol Direct HDL Cholesterol Urine Creatinine Hepatitis C Antibody Crossmatch Crossmatch [facility] 12/05/17 12/05/17 12/06/17 04:05 22:50 08:18 WBC RBC 2.80 L Hgb 7.4 L Hct 23.0 L MCV 82 L MCH 27 L MCHC RDW 19.5 H Plt Count 125 L Lymph % (Auto) [place] % (Auto) Eos % (Auto) Lymph # [place] # Eos # Seg Neutrophils % Seg Neuts % (Manual) Lymphocytes % (Manual) Monocytes % (Manual) Eosinophils % (Manual) Nucleated RBC % Seg Neutrophils # Seg Neutrophils # Man Lymphocytes # (Manual) Monocytes # (Manual) Eosinophils # (Manual) PT INR POC ABG pH POC ABG pCO2 POC ABG pO2 Sodium Potassium Chloride 107.4 H Carbon Dioxide BUN Creatinine 2.5 H Glucose POC Glucose 112 H Lactic Acid Calcium 8.3 L Phosphorus Magnesium AST ALT Alkaline Phosphatase Troponin T C-Reactive Protein Total Protein Albumin LDL Cholesterol Direct HDL Cholesterol Urine Creatinine Hepatitis C Antibody Crossmatch Crossmatch [facility] 12/06/17 12/06/17 12/06/17 08:18 12:01 23:58 WBC RBC Hgb Hct MCV MCH MCHC RDW Plt Count Lymph % (Auto) [place] % (Auto) Eos % (Auto) Lymph # [place] # Eos # Seg Neutrophils % Seg Neuts % (Manual) Lymphocytes % (Manual) Monocytes % (Manual) Eosinophils % (Manual) Nucleated RBC % Seg Neutrophils # Seg Neutrophils # Man Lymphocytes # (Manual) Monocytes # (Manual) Eosinophils # (Manual) PT INR POC ABG pH POC ABG pCO2 POC ABG pO2 Sodium Potassium Chloride 108.4 H Carbon Dioxide BUN 28 H Creatinine 3.7 H Glucose 103 H POC Glucose 106 H 108 H Lactic Acid Calcium 8.0 L Phosphorus Magnesium AST ALT Alkaline Phosphatase Troponin T C-Reactive Protein Total Protein Albumin LDL Cholesterol Direct HDL Cholesterol Urine Creatinine Hepatitis C Antibody Crossmatch Crossmatch [facility] 12/07/17 12/07/17 12/07/17 05:47 05:47 18:03 WBC RBC 2.79 L Hgb 7.3 L Hct 22.8 L MCV 82 L MCH 26 L MCHC RDW 19.1 H Plt Count 101 L Lymph % (Auto) [place] % (Auto) Eos % (Auto) Lymph # [place] # Eos # Seg Neutrophils % Seg Neuts % (Manual) 72.0 H Lymphocytes % (Manual) 13.0 L Monocytes % (Manual) Eosinophils % (Manual) 9.0 H Nucleated RBC % Seg Neutrophils # Seg Neutrophils # Man Lymphocytes # (Manual) 1.1 L Monocytes # (Manual) Eosinophils # (Manual) 0.8 H PT INR POC ABG pH POC ABG pCO2 POC ABG pO2 Sodium 146 H Potassium Chloride 109.8 H Carbon Dioxide BUN 36 H Creatinine 4.0 H Glucose POC Glucose 143 H Lactic Acid Calcium 8.0 L Phosphorus Magnesium AST ALT Alkaline Phosphatase Troponin T C-Reactive Protein Total Protein Albumin LDL Cholesterol Direct HDL Cholesterol Urine Creatinine Hepatitis C Antibody Crossmatch Crossmatch [facility] 12/07/17 12/08/17 12/08/17 23:33 05:10 05:10 WBC RBC 2.91 L Hgb 7.5 L Hct 24.4 L MCV MCH 26 L MCHC 31 L RDW 19.7 H Plt Count 109 L Lymph % (Auto) [place] % (Auto) Eos % (Auto) Lymph # [place] # Eos # Seg Neutrophils % Seg Neuts % (Manual) Lymphocytes % (Manual) 11.0 L Monocytes % (Manual) Eosinophils % (Manual) 12.0 H Nucleated RBC % Seg Neutrophils # Seg Neutrophils # Man Lymphocytes # (Manual) 0.7 L Monocytes # (Manual) Eosinophils # (Manual) 0.7 H PT INR POC ABG pH POC ABG pCO2 POC ABG pO2 Sodium 147 H Potassium Chloride 110.4 H Carbon Dioxide BUN Creatinine 2.8 H Glucose POC Glucose 107 H Lactic Acid Calcium 7.8 L Phosphorus Magnesium AST ALT Alkaline Phosphatase Troponin T C-Reactive Protein Total Protein Albumin LDL Cholesterol Direct HDL Cholesterol Urine Creatinine Hepatitis C Antibody Crossmatch Crossmatch [facility] 12/09/17 12/09/17 12/09/17 04:18 04:18 12:16 WBC RBC Hgb 7.2 L Hct 23.2 L MCV MCH MCHC RDW Plt Count Lymph % (Auto) [place] % (Auto) Eos % (Auto) Lymph # [place] # Eos # Seg Neutrophils % Seg Neuts % (Manual) Lymphocytes % (Manual) Monocytes % (Manual) Eosinophils % (Manual) Nucleated RBC % Seg Neutrophils # Seg Neutrophils # Man Lymphocytes # (Manual) Monocytes # (Manual) Eosinophils # (Manual) PT INR POC ABG pH POC ABG pCO2 POC ABG pO2 Sodium 150 H Potassium Chloride 114.5 H Carbon Dioxide BUN 25 H Creatinine 3.3 H Glucose POC Glucose 142 H Lactic Acid Calcium 7.7 L Phosphorus Magnesium AST ALT Alkaline Phosphatase Troponin T C-Reactive Protein Total Protein Albumin LDL Cholesterol Direct HDL Cholesterol Urine Creatinine Hepatitis C Antibody Crossmatch Crossmatch [facility] 12/10/17 12/10/17 12/11/17 05:14 05:14 12:05 WBC RBC 2.81 L Hgb 7.4 L Hct 23.9 L MCV MCH 26 L MCHC 31 L RDW 19.1 H Plt Count 128 L Lymph % (Auto) [place] % (Auto) Eos % (Auto) Lymph # [place] # Eos # Seg Neutrophils % Seg Neuts % (Manual) 78.0 H Lymphocytes % (Manual) 8.0 L Monocytes % (Manual) Eosinophils % (Manual) 5.0 H Nucleated RBC % Seg Neutrophils # Seg Neutrophils # Man Lymphocytes # (Manual) 0.6 L Monocytes # (Manual) Eosinophils # (Manual) PT INR POC ABG pH POC ABG pCO2 POC ABG pO2 Sodium Potassium Chloride Carbon Dioxide BUN Creatinine 2.2 H Glucose POC Glucose 127 H Lactic Acid Calcium 7.8 L Phosphorus Magnesium AST ALT Alkaline Phosphatase Troponin T C-Reactive Protein Total Protein Albumin LDL Cholesterol Direct HDL Cholesterol Urine Creatinine Hepatitis C Antibody Crossmatch Crossmatch [facility] 12/11/17 12/11/17 12/11/17 15:26 18:36 23:40 WBC RBC Hgb Hct MCV MCH MCHC RDW Plt Count Lymph % (Auto) [place] % (Auto) Eos % (Auto) Lymph # [place] # Eos # Seg Neutrophils % Seg Neuts % (Manual) Lymphocytes % (Manual) Monocytes % (Manual) Eosinophils % (Manual) Nucleated RBC % Seg Neutrophils # Seg Neutrophils # Man Lymphocytes # (Manual) Monocytes # (Manual) Eosinophils # (Manual) PT INR POC ABG pH POC ABG pCO2 POC ABG pO2 Sodium Potassium 3.3 L Chloride Carbon Dioxide BUN Creatinine 1.6 H Glucose POC Glucose 106 H 110 H Lactic Acid Calcium 7.6 L Phosphorus Magnesium AST ALT Alkaline Phosphatase Troponin T C-Reactive Protein Total Protein Albumin LDL Cholesterol Direct HDL Cholesterol Urine Creatinine Hepatitis C Antibody Crossmatch Crossmatch [facility] 12/12/17 12/12/17 12/12/17 05:10 05:41 05:41 WBC RBC 3.17 L Hgb 8.1 L Hct 25.7 L MCV 81 L MCH 25 L MCHC 31 L RDW 19.2 H Plt Count Lymph % (Auto) [place] % (Auto) Eos % (Auto) Lymph # [place] # Eos # Seg Neutrophils % Seg Neuts % (Manual) 74.0 H Lymphocytes % (Manual) 6.0 L Monocytes % (Manual) Eosinophils % (Manual) 9.0 H Nucleated RBC % Seg Neutrophils # Seg Neutrophils # Man Lymphocytes # (Manual) 0.6 L Monocytes # (Manual) Eosinophils # (Manual) 0.9 H PT INR POC ABG pH POC ABG pCO2 POC ABG pO2 Sodium Potassium 3.5 L Chloride Carbon Dioxide BUN Creatinine 2.3 H Glucose 113 H POC Glucose 112 H Lactic Acid Calcium 7.5 L Phosphorus Magnesium AST ALT Alkaline Phosphatase Troponin T C-Reactive Protein Total Protein Albumin LDL Cholesterol Direct HDL Cholesterol Urine Creatinine Hepatitis C Antibody Crossmatch Crossmatch [facility] 12/13/17 12/13/17 12/13/17 06:14 12:00 17:37 WBC RBC Hgb Hct MCV MCH MCHC RDW Plt Count Lymph % (Auto) [place] % (Auto) Eos % (Auto) Lymph # [place] # Eos # Seg Neutrophils % Seg Neuts % (Manual) Lymphocytes % (Manual) Monocytes % (Manual) Eosinophils % (Manual) Nucleated RBC % Seg Neutrophils # Seg Neutrophils # Man Lymphocytes # (Manual) Monocytes # (Manual) Eosinophils # (Manual) PT INR POC ABG pH POC ABG pCO2 POC ABG pO2 Sodium Potassium Chloride Carbon Dioxide BUN Creatinine Glucose POC Glucose 130 H 133 H 136 H Lactic Acid Calcium Phosphorus Magnesium AST ALT Alkaline Phosphatase Troponin T C-Reactive Protein Total Protein Albumin LDL Cholesterol Direct HDL Cholesterol Urine Creatinine Hepatitis C Antibody Crossmatch Crossmatch [facility] 12/13/17 12/14/17 12/14/17 23:39 05:11 05:11 WBC RBC Hgb Hct MCV MCH MCHC RDW Plt Count Lymph % (Auto) [place] % (Auto) Eos % (Auto) Lymph # [place] # Eos # Seg Neutrophils % Seg Neuts % (Manual) Lymphocytes % (Manual) Monocytes % (Manual) Eosinophils % (Manual) Nucleated RBC % Seg Neutrophils # Seg Neutrophils # Man Lymphocytes # (Manual) Monocytes # (Manual) Eosinophils # (Manual) PT 15.4 H INR 1.17 H POC ABG pH POC ABG pCO2 POC ABG pO2 Sodium Potassium Chloride Carbon Dioxide 21 L BUN 26 H Creatinine 2.9 H Glucose POC Glucose 108 H Lactic Acid Calcium 7.2 L Phosphorus Magnesium AST ALT Alkaline Phosphatase Troponin T C-Reactive Protein Total Protein Albumin LDL Cholesterol Direct HDL Cholesterol Urine Creatinine Hepatitis C Antibody Crossmatch Crossmatch [facility] 12/14/17 12/14/17 12/14/17 12:00 16:01 18:24 WBC 12.9 H RBC 3.25 L Hgb 8.2 L Hct 26.2 L MCV 81 L MCH 25 L MCHC 31 L RDW 19.2 H Plt Count Lymph % (Auto) [place] % (Auto) Eos % (Auto) Lymph # [place] # Eos # Seg Neutrophils % Seg Neuts % (Manual) Lymphocytes % (Manual) Monocytes % (Manual) Eosinophils % (Manual) Nucleated RBC % Seg Neutrophils # Seg Neutrophils # Man Lymphocytes # (Manual) Monocytes # (Manual) Eosinophils # (Manual) PT INR POC ABG pH POC ABG pCO2 POC ABG pO2 Sodium Potassium Chloride Carbon Dioxide BUN Creatinine Glucose POC Glucose 138 H 120 H Lactic Acid Calcium Phosphorus Magnesium AST ALT Alkaline Phosphatase Troponin T C-Reactive Protein Total Protein Albumin LDL Cholesterol Direct HDL Cholesterol Urine Creatinine Hepatitis C Antibody Crossmatch Crossmatch [facility] 12/14/17 12/14/17 12/15/17 23:29 Unknown 05:57 WBC 12.5 H RBC 2.48 L Hgb 6.0 L Hct 24.4 L MCV 79 L MCH 24 L MCHC 30 L RDW 18.5 H Plt Count 131 L Lymph % (Auto) 7.0 L [place] % (Auto) 8.9 H Eos % (Auto) 8.3 H Lymph # 0.9 L [place] # 1.1 H Eos # 1.0 H Seg Neutrophils % 75.2 H Seg Neuts % (Manual) Lymphocytes % (Manual) Monocytes % (Manual) Eosinophils % (Manual) Nucleated RBC % Seg Neutrophils # 9.4 H Seg Neutrophils # Man Lymphocytes # (Manual) Monocytes # (Manual) Eosinophils # (Manual) PT INR POC ABG pH POC ABG pCO2 POC ABG pO2 Sodium Potassium Chloride Carbon Dioxide BUN Creatinine Glucose POC Glucose 110 H 113 H Lactic Acid Calcium Phosphorus Magnesium AST ALT Alkaline Phosphatase Troponin T C-Reactive Protein Total Protein Albumin LDL Cholesterol Direct HDL Cholesterol Urine Creatinine Hepatitis C Antibody Crossmatch Crossmatch [facility] 12/15/17 12/15/17 12/15/17 11:50 13:37 17:58 WBC RBC Hgb 7.3 L Hct 23.3 L MCV MCH MCHC RDW Plt Count Lymph % (Auto) [place] % (Auto) Eos % (Auto) Lymph # [place] # Eos # Seg Neutrophils % Seg Neuts % (Manual) Lymphocytes % (Manual) Monocytes % (Manual) Eosinophils % (Manual) Nucleated RBC % Seg Neutrophils # Seg Neutrophils # Man Lymphocytes # (Manual) Monocytes # (Manual) Eosinophils # (Manual) PT INR POC ABG pH POC ABG pCO2 POC ABG pO2 Sodium Potassium Chloride Carbon Dioxide BUN Creatinine Glucose POC Glucose 106 H 110 H Lactic Acid Calcium Phosphorus Magnesium AST ALT Alkaline Phosphatase Troponin T C-Reactive Protein Total Protein Albumin LDL Cholesterol Direct HDL Cholesterol Urine Creatinine Hepatitis C Antibody Crossmatch Crossmatch [facility] 12/15/17 12/16/17 12/16/17 23:30 04:55 05:14 WBC 13.2 H RBC 2.79 L Hgb 6.9 L Hct 22.2 L MCV 80 L MCH 25 L MCHC 31 L RDW 18.8 H Plt Count Lymph % (Auto) 7.3 L [place] % (Auto) 11.0 H Eos % (Auto) 8.2 H Lymph # 1.0 L [place] # 1.4 H Eos # 1.1 H Seg Neutrophils % 72.9 H Seg Neuts % (Manual) Lymphocytes % (Manual) Monocytes % (Manual) Eosinophils % (Manual) Nucleated RBC % Seg Neutrophils # 9.6 H Seg Neutrophils # Man Lymphocytes # (Manual) Monocytes # (Manual) Eosinophils # (Manual) PT INR POC ABG pH POC ABG pCO2 POC ABG pO2 Sodium 131 L D Potassium 2.8 L* D Chloride 93.2 L Carbon Dioxide BUN 24 H Creatinine 2.0 H Glucose POC Glucose 111 H Lactic Acid Calcium 7.7 L Phosphorus Magnesium AST ALT Alkaline Phosphatase Troponin T C-Reactive Protein Total Protein Albumin LDL Cholesterol Direct HDL Cholesterol Urine Creatinine Hepatitis C Antibody Crossmatch Crossmatch [facility] 12/16/17 12/16/17 12/16/17 13:01 17:32 23:39 WBC RBC Hgb Hct MCV MCH MCHC RDW Plt Count Lymph % (Auto) [place] % (Auto) Eos % (Auto) Lymph # [place] # Eos # Seg Neutrophils % Seg Neuts % (Manual) Lymphocytes % (Manual) Monocytes % (Manual) Eosinophils % (Manual) Nucleated RBC % Seg Neutrophils # Seg Neutrophils # Man Lymphocytes # (Manual) Monocytes # (Manual) Eosinophils # (Manual) PT INR POC ABG pH POC ABG pCO2 POC ABG pO2 Sodium Potassium Chloride Carbon Dioxide BUN Creatinine Glucose POC Glucose 121 H 107 H Lactic Acid Calcium Phosphorus Magnesium AST ALT Alkaline Phosphatase Troponin T C-Reactive Protein Total Protein Albumin LDL Cholesterol Direct HDL Cholesterol Urine Creatinine Hepatitis C Antibody Crossmatch Crossmatch [facility] See Detail 12/17/17 12/17/17 12/17/17 05:08 05:08 12:03 WBC 12.9 H RBC 2.88 L Hgb 7.2 L Hct 22.6 L MCV 78 L MCH 25 L MCHC RDW 18.3 H Plt Count Lymph % (Auto) 8.0 L [place] % (Auto) 8.6 H Eos % (Auto) Lymph # 1.0 L [place] # 1.1 H Eos # Seg Neutrophils % 79.3 H Seg Neuts % (Manual) Lymphocytes % (Manual) Monocytes % (Manual) Eosinophils % (Manual) Nucleated RBC % Seg Neutrophils # 10.2 H Seg Neutrophils # Man Lymphocytes # (Manual) Monocytes # (Manual) Eosinophils # (Manual) PT INR POC ABG pH POC ABG pCO2 POC ABG pO2 Sodium Potassium 3.4 L D Chloride Carbon Dioxide BUN Creatinine Glucose 104 H POC Glucose 109 H Lactic Acid Calcium 7.6 L Phosphorus Magnesium 1.30 L AST ALT Alkaline Phosphatase 177 H Troponin T C-Reactive Protein Total Protein Albumin 2.0 L LDL Cholesterol Direct HDL Cholesterol Urine Creatinine Hepatitis C Antibody Crossmatch Crossmatch [facility] 12/17/17 12/18/17 12/18/17 23:40 00:50 00:50 WBC 22.6 H RBC 2.76 L Hgb 6.7 L Hct 21.6 L MCV 78 L MCH 24 L MCHC 31 L RDW 18.4 H Plt Count Lymph % (Auto) [place] % (Auto) Eos % (Auto) Lymph # [place] # Eos # Seg Neutrophils % Seg Neuts % (Manual) Lymphocytes % (Manual) Monocytes % (Manual) Eosinophils % (Manual) Nucleated RBC % Seg Neutrophils # Seg Neutrophils # Man Lymphocytes # (Manual) Monocytes # (Manual) Eosinophils # (Manual) PT INR POC ABG pH POC ABG pCO2 POC ABG pO2 Sodium Potassium Chloride Carbon Dioxide BUN 22 H Creatinine 1.6 H Glucose 113 H POC Glucose 120 H Lactic Acid Calcium 7.8 L Phosphorus Magnesium 1.50 L AST ALT Alkaline Phosphatase Troponin T C-Reactive Protein Total Protein Albumin LDL Cholesterol Direct HDL Cholesterol Urine Creatinine Hepatitis C Antibody Crossmatch Crossmatch [facility] 12/18/17 12/18/17 12/18/17 05:34 12:00 18:07 WBC RBC Hgb Hct MCV MCH MCHC RDW Plt Count Lymph % (Auto) [place] % (Auto) Eos % (Auto) Lymph # [place] # Eos # Seg Neutrophils % Seg Neuts % (Manual) Lymphocytes % (Manual) Monocytes % (Manual) Eosinophils % (Manual) Nucleated RBC % Seg Neutrophils # Seg Neutrophils # Man Lymphocytes # (Manual) Monocytes # (Manual) Eosinophils # (Manual) PT INR POC ABG pH POC ABG pCO2 POC ABG pO2 Sodium Potassium Chloride Carbon Dioxide BUN Creatinine Glucose POC Glucose 132 H 136 H 122 H Lactic Acid Calcium Phosphorus Magnesium AST ALT Alkaline Phosphatase Troponin T C-Reactive Protein Total Protein Albumin LDL Cholesterol Direct HDL Cholesterol Urine Creatinine Hepatitis C Antibody Crossmatch Crossmatch [place]armed 12/19/17 12/19/17 12/19/17 00:24 00:24 05:17 WBC 15.4 H RBC 2.41 L Hgb 6.1 L Hct 19.0 L* MCV 79 L MCH 25 L MCHC RDW 18.5 H Plt Count Lymph % (Auto) [place] % (Auto) Eos % (Auto) Lymph # [place] # Eos # Seg Neutrophils % Seg Neuts % (Manual) Lymphocytes % (Manual) Monocytes % (Manual) Eosinophils % (Manual) Nucleated RBC % Seg Neutrophils # Seg Neutrophils # Man Lymphocytes # (Manual) Monocytes # (Manual) Eosinophils # (Manual) PT INR POC ABG pH POC ABG pCO2 POC ABG pO2 Sodium Potassium 3.2 L Chloride Carbon Dioxide BUN Creatinine Glucose 117 H POC Glucose 132 H Lactic Acid Calcium 8.2 L Phosphorus Magnesium 1.50 L AST ALT Alkaline Phosphatase Troponin T C-Reactive Protein Total Protein Albumin LDL Cholesterol Direct HDL Cholesterol Urine Creatinine Hepatitis C Antibody Crossmatch Crossmatch [place]armed 12/19/17 12/19/17 12/19/17 09:00 09:00 18:01 WBC 12.4 H RBC 2.86 L Hgb 7.2 L Hct 22.6 L MCV 79 L MCH 25 L MCHC RDW 17.2 H Plt Count Lymph % (Auto) 6.8 L [place] % (Auto) 12.6 H Eos % (Auto) Lymph # 0.8 L [place] # 1.6 H Eos # Seg Neutrophils % 80.1 H Seg Neuts % (Manual) Lymphocytes % (Manual) Monocytes % (Manual) Eosinophils % (Manual) Nucleated RBC % Seg Neutrophils # 10.0 H Seg Neutrophils # Man Lymphocytes # (Manual) Monocytes # (Manual) Eosinophils # (Manual) PT INR POC ABG pH POC ABG pCO2 POC ABG pO2 Sodium Potassium 3.1 L Chloride Carbon Dioxide BUN 22 H Creatinine Glucose 113 H POC Glucose 117 H Lactic Acid Calcium 8.3 L Phosphorus Magnesium AST 54 H ALT Alkaline Phosphatase 204 H Troponin T C-Reactive Protein Total Protein 5.8 L Albumin 2.0 L LDL Cholesterol Direct HDL Cholesterol Urine Creatinine Hepatitis C Antibody Crossmatch Crossmatch [place]armed 12/19/17 12/20/17 12/20/17 23:49 05:53 19:00 WBC RBC 3.03 L Hgb 7.7 L Hct 23.7 L MCV 78 L MCH 25 L MCHC RDW 17.2 H Plt Count Lymph % (Auto) [place] % (Auto) Eos % (Auto) Lymph # [place] # Eos # Seg Neutrophils % Seg Neuts % (Manual) 74.0 H Lymphocytes % (Manual) 6.0 L Monocytes % (Manual) 17.0 H Eosinophils % (Manual) Nucleated RBC % Seg Neutrophils # Seg Neutrophils # Man Lymphocytes # (Manual) 0.5 L Monocytes # (Manual) 1.5 H Eosinophils # (Manual) PT INR POC ABG pH POC ABG pCO2 POC ABG pO2 Sodium Potassium Chloride Carbon Dioxide BUN Creatinine Glucose POC Glucose 125 H 124 H Lactic Acid Calcium Phosphorus Magnesium AST ALT Alkaline Phosphatase Troponin T C-Reactive Protein Total Protein Albumin LDL Cholesterol Direct HDL Cholesterol Urine Creatinine Hepatitis C Antibody Crossmatch Crossmatch [place]armed 12/20/17 12/21/17 12/22/17 19:00 23:54 05:07 WBC RBC Hgb Hct MCV MCH MCHC RDW Plt Count Lymph % (Auto) [place] % (Auto) Eos % (Auto) Lymph # [place] # Eos # Seg Neutrophils % Seg Neuts % (Manual) Lymphocytes % (Manual) Monocytes % (Manual) Eosinophils % (Manual) Nucleated RBC % Seg Neutrophils # Seg Neutrophils # Man Lymphocytes # (Manual) Monocytes # (Manual) Eosinophils # (Manual) PT INR POC ABG pH POC ABG pCO2 POC ABG pO2 Sodium Potassium 3.3 L 2.9 L* Chloride Carbon Dioxide BUN 37 H 43 H Creatinine Glucose 114 H POC Glucose 109 H Lactic Acid Calcium 8.3 L 7.8 L Phosphorus 1.60 L Magnesium 1.50 L AST ALT Alkaline Phosphatase Troponin T C-Reactive Protein Total Protein Albumin LDL Cholesterol Direct HDL Cholesterol Urine Creatinine Hepatitis C Antibody Crossmatch Crossmatch [place]armed 12/22/17 12/22/17 12/22/17 05:07 05:07 06:02 WBC 4.1 L RBC 3.09 L Hgb 7.7 L Hct 24.3 L MCV 79 L MCH 25 L MCHC RDW 17.8 H Plt Count Lymph % (Auto) [place] % (Auto) Eos % (Auto) Lymph # [place] # Eos # Seg Neutrophils % Seg Neuts % (Manual) Lymphocytes % (Manual) Monocytes % (Manual) Eosinophils % (Manual) Nucleated RBC % Seg Neutrophils # Seg Neutrophils # Man Lymphocytes # (Manual) Monocytes # (Manual) Eosinophils # (Manual) PT INR POC ABG pH POC ABG pCO2 POC ABG pO2 Sodium Potassium Chloride Carbon Dioxide BUN Creatinine Glucose POC Glucose 107 H Lactic Acid Calcium Phosphorus Magnesium 1.60 L AST ALT Alkaline Phosphatase Troponin T C-Reactive Protein Total Protein Albumin LDL Cholesterol Direct HDL Cholesterol Urine Creatinine Hepatitis C Antibody Crossmatch Crossmatch [place]armed 12/22/17 12/22/17 12/22/17 10:50 12:02 17:32 WBC RBC Hgb Hct MCV MCH MCHC RDW Plt Count Lymph % (Auto) [place] % (Auto) Eos % (Auto) Lymph # [place] # Eos # Seg Neutrophils % Seg Neuts % (Manual) Lymphocytes % (Manual) Monocytes % (Manual) Eosinophils % (Manual) Nucleated RBC % Seg Neutrophils # Seg Neutrophils # Man Lymphocytes # (Manual) Monocytes # (Manual) Eosinophils # (Manual) PT INR POC ABG pH POC ABG pCO2 POC ABG pO2 Sodium Potassium Chloride Carbon Dioxide BUN Creatinine Glucose POC Glucose 129 H 111 H Lactic Acid Calcium Phosphorus Magnesium AST ALT Alkaline Phosphatase Troponin T C-Reactive Protein Total Protein Albumin LDL Cholesterol Direct HDL Cholesterol Urine Creatinine 55.8 H Hepatitis C Antibody Crossmatch Crossmatch [place]armed 12/22/17 12/22/17 12/23/17 19:03 23:57 05:55 WBC RBC Hgb Hct MCV MCH MCHC RDW Plt Count Lymph % (Auto) [place] % (Auto) Eos % (Auto) Lymph # [place] # Eos # Seg Neutrophils % Seg Neuts % (Manual) Lymphocytes % (Manual) Monocytes % (Manual) Eosinophils % (Manual) Nucleated RBC % Seg Neutrophils # Seg Neutrophils # Man Lymphocytes # (Manual) Monocytes # (Manual) Eosinophils # (Manual) PT INR POC ABG pH POC ABG pCO2 POC ABG pO2 Sodium Potassium 3.4 L 2.9 L* Chloride Carbon Dioxide BUN 40 H Creatinine Glucose 107 H POC Glucose 128 H Lactic Acid Calcium 7.9 L Phosphorus Magnesium AST ALT Alkaline Phosphatase Troponin T C-Reactive Protein Total Protein Albumin LDL Cholesterol Direct HDL Cholesterol Urine Creatinine Hepatitis C Antibody Crossmatch Crossmatch [place]armed 12/23/17 12/23/17 12/23/17 05:55 05:55 11:59 WBC 3.8 L RBC 3.10 L Hgb 7.7 L Hct 25.5 L MCV 82 L MCH 25 L MCHC 30 L RDW 17.9 H Plt Count Lymph % (Auto) [place] % (Auto) Eos % (Auto) Lymph # [place] # Eos # Seg Neutrophils % Seg Neuts % (Manual) Lymphocytes % (Manual) Monocytes % (Manual) Eosinophils % (Manual) Nucleated RBC % Seg Neutrophils # Seg Neutrophils # Man Lymphocytes # (Manual) Monocytes # (Manual) Eosinophils # (Manual) PT INR POC ABG pH POC ABG pCO2 POC ABG pO2 Sodium Potassium Chloride Carbon Dioxide BUN Creatinine Glucose POC Glucose 115 H Lactic Acid Calcium Phosphorus Magnesium 1.60 L AST ALT Alkaline Phosphatase Troponin T C-Reactive Protein Total Protein Albumin LDL Cholesterol Direct HDL Cholesterol Urine Creatinine Hepatitis C Antibody Crossmatch Crossmatch [place]armed 12/23/17 12/24/17 12/24/17 22:48 00:29 03:17 WBC RBC Hgb Hct MCV MCH MCHC RDW Plt Count Lymph % (Auto) [place] % (Auto) Eos % (Auto) Lymph # [place] # Eos # Seg Neutrophils % Seg Neuts % (Manual) Lymphocytes % (Manual) Monocytes % (Manual) Eosinophils % (Manual) Nucleated RBC % Seg Neutrophils # Seg Neutrophils # Man Lymphocytes # (Manual) Monocytes # (Manual) Eosinophils # (Manual) PT INR POC ABG pH POC ABG pCO2 POC ABG pO2 Sodium 146 H Potassium 2.9 L* 3.4 L Chloride Carbon Dioxide BUN 36 H Creatinine 0.7 L Glucose POC Glucose 111 H Lactic Acid Calcium 7.5 L Phosphorus Magnesium 1.60 L AST 76 H ALT 59 H Alkaline Phosphatase 294 H Troponin T C-Reactive Protein Total Protein 5.8 L Albumin 2.2 L LDL Cholesterol Direct HDL Cholesterol Urine Creatinine Hepatitis C Antibody Crossmatch Crossmatch [place]armed 12/24/17 12/24/17 03:17 05:14 WBC RBC 3.03 L Hgb 7.6 L Hct 23.7 L MCV 78 L MCH 25 L MCHC RDW 17.8 H Plt Count Lymph % (Auto) [place] % (Auto) Eos % (Auto) Lymph # [place] # Eos # Seg Neutrophils % Seg Neuts % (Manual) Lymphocytes % (Manual) Monocytes % (Manual) Eosinophils % (Manual) Nucleated RBC % Seg Neutrophils # Seg Neutrophils # Man Lymphocytes # (Manual) Monocytes # (Manual) Eosinophils # (Manual) PT INR POC ABG pH POC ABG pCO2 POC ABG pO2 Sodium Potassium Chloride Carbon Dioxide BUN Creatinine Glucose POC Glucose 127 H Lactic Acid Calcium Phosphorus Magnesium AST ALT Alkaline Phosphatase Troponin T C-Reactive Protein Total Protein Albumin LDL Cholesterol Direct HDL Cholesterol Urine Creatinine Hepatitis C Antibody Crossmatch Crossmatch [place]armed Chest x-ray: report reviewed, image reviewed
--- NOTE | 2017-12-24 16:30 | Progress Note ---
Assessment and Plan Assessment and plan: Admitted 11/12/17 Mr. 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 He had a Carotid doppler done that revealed a right ICA 50-79% stenosis. CTA of the neck revealed 80% stenosis of the right ICA with probable 50% stenosis of the origin of the right common carotid artery. His symptoms were thought to be due to the Carotid artery stenosis which was disheartening since he was on Aspirin and plavix. He was scheduled for right CEA but needed Cardiac clearance. He underwent stress test on 10/05/17 and [employer]worker Helper stated he was stable for non-cardiac history, low to moderate perioperative risk. So, he underwent right carotid enarterectomy on 10/09/17. Following the surgery, he developed recurrent left sided weakness/hemiparesis and was taken back to the OR on 10/10/17 for Open Thrombectomy of Right Internal Carotid Artery and Injection of tPA into the Artery. CT head obtained 2 days after surgery on 10/12 showed massive right cerebral hemisphere acute CVA with midline shift. He was subsequently discharged on 11/10/17 to [facility] but returned to [facility] ED and was re-admitted on 11/12/17 for suspected sepsis due to Aspiration post-obstructive pneumonia with suspected mucus plug and subsequently intubated on admission. On 11/20/17, patient went for Tracheostomy by Dr. Hughes, ENT. Then on 11/21/17 patient went into shock, most likely sepsis as WBC went up to 38.2k; initially thought to be due worsening aspiration pneumonia but it was discovered that he had a dislodged PEG tube from the Nursing, most likely present on admission, which lead to the shock from severe intra-abdominal infection/ peritonitis requiring IR drainage and General surgery drainage. Peritonitis - from dislodged peg tube, hence not present - has completed abx - s/p multiple intraabdominal drainages placed by IR and GS. -awaiting abdominal wounds to heal prior to placement of new PEG tube -Acute hypoxic respiratory failure due to Pneumonia on MV>96 hours s/p Tracheostomy 11/20/17: continue trache collar -septic shock, reslove -Aspiration pneumonia, resolved -Acute encephalopathy: currently at new baseline, non verbal, moves right side on command -Hypernatremia: improved with free water -Hypokalemia ; resolved hypomagnesemia: replace and monitor closely -ARF vasomotor nephropathy, poa: IV fluids, monitor bmp closely, received HD and now has renal recovery -Dysphagia with aspiration: s/p peg tube -Acute on chronic blood loss anemia w/Coffee-ground material from peg tube: GI is following, treat with ppi iv bid, EGD done 11/18/17 showed 8 mm cratered, 10 mm linear ulcer proximal lesser curvature with erythema but no other bleeding stigmata, gastritis and 4-5 cm hiatal hernia -Advance care planning: full code -Disposition: continue inpatient care, LTAC declined to accept patient without PEG tube. D/W Gen Sx, awaiting abdominal wounds to heal, then new peg tube prior to snf placement KILEY is daughter, Eugenie [phone], History Interval history: patient is calm and obeys simple commands no events, no agitation, no fevers no seizures, Hospitalist Physical - Physical exam Narrative exam: General appearance: Present:appears chronically ill - EENT Eyes: Present: PERRL - Neck Neck: Present: supple - Respiratory Respiratory effort: labored Respiratory: bilateral: rales - Cardiovascular Rhythm: regular Heart Sounds: Present: S1 & S2 - Extremities Extremities: no ischemia - Abdominal General gastrointestinal: soft, non-tender - Integumentary Integumentary: Present: clear, warm, dry - Psychiatric Psychiatric: non verbal, trached to trache collar - Neurologic Neurologic: left hemiplegia, able to move right side on command, but right side is weak condom cath in place - Constitutional Vitals: Temp Pulse Resp BP Pulse Ox 97.7 F 100 H 26 H 135/75 96 12/24/17 16:00 12/24/17 16:00 12/24/17 16:00 12/24/17 16:00 12/24/17 16:00 General appearance: Present: no acute distress Results - Labs CBC & Chem 7: 12/28/17 04:59 12/30/17 04:46 Labs: Laboratory Last Values WBC 4.6 K/mm3 (4.5-11.0) 12/24/17 03:17 RBC 3.03 M/mm3 (3.65-5.03) L 12/24/17 03:17 Hgb 7.6 gm/dl (11.8-15.2) L 12/24/17 03:17 Hct 23.7 % (35.5-45.6) L 12/24/17 03:17 MCV 78 fl (84-94) L 12/24/17 03:17 MCH 25 pg (28-32) L 12/24/17 03:17 MCHC 32 % (32-34) 12/24/17 03:17 RDW 17.8 % (13.2-15.2) H 12/24/17 03:17 Plt Count 218 K/mm3 (140-440) 12/24/17 03:17 Lymph % (Auto) 6.8 % (13.4-35.0) L 12/19/17 09:00 [place] % (Auto) Android Developer 12/20/17 19:00 Eos % (Auto) 0.2 % (0.0-4.3) 12/19/17 09:00 Baso % (Auto) 0.3 % (0.0-1.8) 12/19/17 09:00 Lymph # 0.8 K/mm3 (1.2-5.4) L 12/19/17 09:00 [place] # 1.6 K/mm3 (0.0-0.8) H 12/19/17 09:00 Eos # 0.0 K/mm3 (0.0-0.4) 12/19/17 09:00 Baso # 0.0 K/mm3 (0.0-0.1) 12/19/17 09:00 Add Manual Diff Complete 12/20/17 19:00 Total Counted 100 12/20/17 19:00 Seg Neutrophils % 80.1 % (40.0-70.0) H 12/19/17 09:00 Seg Neuts % (Manual) 74.0 % (40.0-70.0) H 12/20/17 19:00 Band Neutrophils % 2.0 % 12/20/17 19:00 Lymphocytes % (Manual) 6.0 % (13.4-35.0) L 12/20/17 19:00 Reactive Lymphs % (Man) 0 % 12/20/17 19:00 Monocytes % (Manual) 17.0 % (0.0-7.3) H 12/20/17 19:00 Eosinophils % (Manual) 1.0 % (0.0-4.3) 12/20/17 19:00 Basophils % (Manual) 0 % (0.0-1.8) 12/20/17 19:00 Metamyelocytes % 0 % 12/20/17 19:00 Myelocytes % 0 % 12/20/17 19:00 Promyelocytes % 0 % 12/20/17 19:00 Blast Cells % 0 % 12/20/17 19:00 Nucleated RBC % Not Reportable 12/20/17 19:00 Seg Neutrophils # 10.0 K/mm3 (1.8-7.7) H 12/19/17 09:00 Seg Neutrophils # Man 6.4 K/mm3 (1.8-7.7) 12/20/17 19:00 Band Neutrophils # 0.2 K/mm3 12/20/17 19:00 Lymphocytes # (Manual) 0.5 K/mm3 (1.2-5.4) L 12/20/17 19:00 Abs React Lymphs (Man) 0.0 K/mm3 12/20/17 19:00 Monocytes # (Manual) 1.5 K/mm3 (0.0-0.8) H 12/20/17 19:00 Eosinophils # (Manual) 0.1 K/mm3 (0.0-0.4) 12/20/17 19:00 Basophils # (Manual) 0.0 K/mm3 (0.0-0.1) 12/20/17 19:00 Metamyelocytes # 0.0 K/mm3 12/20/17 19:00 Myelocytes # 0.0 K/mm3 12/20/17 19:00 Promyelocytes # 0.0 K/mm3 12/20/17 19:00 Blast Cells # 0.0 K/mm3 12/20/17 19:00 WBC Morphology Not Reportable 12/20/17 19:00 Hypersegmented Neuts Not Reportable 12/20/17 19:00 Hyposegmented Neuts Not Reportable 12/20/17 19:00 Hypogranular Neuts Not Reportable 12/20/17 19:00 Smudge Cells Not Reportable 12/20/17 19:00 Toxic Granulation Not Reportable 12/20/17 19:00 Toxic Vacuolation Not Reportable 12/20/17 19:00 Dohle Bodies Not Reportable 12/20/17 19:00 Pelger-Huet Anomaly Not Reportable 12/20/17 19:00 Evangelina Rods Not Reportable 12/20/17 19:00 Platelet Estimate Appears normal 12/20/17 19:00 Clumped Platelets Not Reportable 12/20/17 19:00 Plt Clumps, EDTA Not Reportable 12/20/17 19:00 Large Platelets Not Reportable 12/20/17 19:00 Giant Platelets Not Reportable 12/20/17 19:00 Platelet Satelliting Not Reportable 12/20/17 19:00 Plt Morphology Comment Not Reportable 12/20/17 19:00 RBC Morphology Not Reportable 12/20/17 19:00 Dimorphic RBCs Not Reportable 12/20/17 19:00 Polychromasia Not Reportable 12/20/17 19:00 Hypochromasia 2+ 12/20/17 19:00 Poikilocytosis Few 12/20/17 19:00 Anisocytosis 1+ 12/20/17 19:00 Microcytosis 1+ 12/20/17 19:00 Macrocytosis Not Reportable 12/20/17 19:00 Spherocytes Not Reportable 12/20/17 19:00 Pappenheimer Bodies Not Reportable 12/20/17 19:00 Sickle Cells Not Reportable 12/20/17 19:00 Target Cells Not Reportable 12/20/17 19:00 Tear Drop Cells Not Reportable 12/20/17 19:00 Ovalocytes Few 12/20/17 19:00 Stomatocytes 1+ 12/12/17 05:41 Helmet Cells Not Reportable 12/20/17 19:[address] [place] Bodies Not Reportable 12/20/17 19:00 [place] Rings Not Reportable 12/20/17 19:00 Yarnell Cells Not Reportable 12/20/17 19:00 Bite Cells Not Reportable 12/20/17 19:00 Crenated Cell Not Reportable 12/20/17 19:00 Elliptocytes Not Reportable 12/20/17 19:00 Acanthocytes (Spur) Not Reportable 12/20/17 19:00 Rouleaux Not Reportable 12/20/17 19:00 Hemoglobin C Crystals Not Reportable 12/20/17 19:00 Schistocytes Not Reportable 12/20/17 19:00 Malaria parasites Not Reportable 12/20/17 19:00 [place] Bodies Not Reportable 12/20/17 19:00 Hem Pathologist Commnt No 12/20/17 19:00 PT 15.4 Sec. (12.2-14.9) H 12/14/17 05:11 INR 1.17 (0.87-1.13) H 12/14/17 05:11 APTT 33.8 Sec. (24.2-36.6) 11/26/17 06:29 POC ABG pH 7.505 (7.35-7.45) H 11/23/17 04:56 POC ABG pCO2 26.3 (35-45) L 11/23/17 04:56 POC ABG pO2 100 (80-105) 11/23/17 04:56 POC ABG HCO3 20.8 11/23/17 04:56 POC ABG Total CO2 22 11/23/17 04:56 POC ABG O2 Sat 98 11/23/17 04:56 POC ABG Base Excess -2 11/23/17 04:56 FiO2 30 % 11/23/17 04:56 Sodium 146 mmol/L (137-145) H 12/24/17 03:17 Potassium 3.4 mmol/L (3.6-5.0) L 12/24/17 03:17 Chloride 106.0 mmol/L (98-107) 12/24/17 03:17 Carbon Dioxide 27 mmol/L (22-30) 12/24/17 03:17 Anion Gap 16 mmol/L 12/24/17 03:17 BUN 36 mg/dL (9-20) H 12/24/17 03:17 Creatinine 0.7 mg/dL (0.8-1.5) L 12/24/17 03:17 Estimated GFR > 60 ml/min 12/24/17 03:17 BUN/Creatinine Ratio 51 % 12/24/17 03:17 Glucose 98 mg/dL (75-100) 12/24/17 03:17 POC Glucose 97 (70-105) 12/24/17 11:11 Lactic Acid 1.80 mmol/L (0.7-2.0) 11/27/17 04:06 Calcium 7.5 mg/dL (8.4-10.2) L 12/24/17 03:17 Phosphorus 1.60 mg/dL (2.5-4.5) L 12/20/17 19:00 Magnesium 1.60 mg/dL (1.7-2.3) L 12/24/17 03:17 Total Bilirubin 0.30 mg/dL (0.1-1.2) 12/24/17 03:17 AST 76 units/L (5-40) H 12/24/17 03:17 ALT 59 units/L (7-56) H 12/24/17 03:17 Alkaline Phosphatase 294 units/L (35-129) H 12/24/17 03:17 Total Creatine Kinase 84 units/L (55-170) 11/12/17 20:03 CK-MB (CK-2) < 1.0 ng/mL (0.0-4.0) 11/12/17 20:03 CK-MB (CK-2) Rel Index 1.1 (0-4) 11/12/17 20:03 Troponin T 0.098 ng/mL (0.00-0.029) H 11/12/17 Unknown C-Reactive Protein 25.70 mg/dL (0.00-1.30) H 11/11/17 23:20 NT-Pro-B Natriuret Pep 792.4 pg/mL (0-900) 11/11/17 23:20 Total Protein 5.8 g/dL (6.3-8.2) L 12/24/17 03:17 Albumin 2.2 g/dL (3.9-5) L 12/24/17 03:17 Albumin/Globulin Ratio 0.6 % 12/24/17 03:17 Triglycerides 86 mg/dL (2-149) 11/11/17 23:20 Cholesterol 82 mg/dL (50-199) 11/11/17 23:20 LDL Cholesterol Direct 42 mg/dL (50-130) L 11/11/17 23:20 HDL Cholesterol 24 mg/dL (40-59) L 11/11/17 23:20 Cholesterol/HDL Ratio 3.41 % 11/11/17 23:20 Lipase 30 units/L (13-60) 11/11/17 23:20 Urine Color Nicole (Yellow) 11/11/17 23:09 Urine Turbidity Cloudy (Clear) 11/11/17 23:09 Urine pH 5.0 (5.0-7.0) 11/11/17 23:09 Ur Specific [place] 1.025 (1.003-1.030) 11/11/17 23:09 Urine Protein 100 mg/dl mg/dL (Negative) 11/11/17 23:09 Urine Glucose (UA) 50 mg/dL (Negative) 11/11/17 23:09 Urine Ketones Neg mg/dL (Negative) 11/11/17 23:09 Urine Blood Neg (Negative) 11/11/17 23:09 Urine Nitrite Neg (Negative) 11/11/17 23:09 Urine Bilirubin Neg (Negative) 11/11/17 23:09 Urine Urobilinogen 4.0 mg/dL (<2.0) 11/11/17 23:09 Ur Leukocyte Esterase Neg (Negative) 11/11/17 23:09 Urine WBC (Auto) 5.0 /HPF (0.0-6.0) 11/11/17 23:09 Urine RBC (Auto) 4.0 /HPF (0.0-6.0) 11/11/17 23:09 Urine Bacteria (Auto) 3+ /HPF (Negative) 11/11/17 23:09 Amorphous Crystals 3+ 11/11/17 23:09 Hyaline Casts 76 /LPF 11/11/17 23:09 Urine Mucus 2+ /HPF 11/11/17 23:09 Urine Total Volume 1350 12/22/17 10:50 Urine Creatinine 55.8 mg/dL (0.1-20.0) H 12/22/17 10:50 Ur Creatinine 24 Hour 0.8 (0.8-2.8) 12/22/17 10:50 Hepatitis A IgM Ab Non-reactive (NonReactive) 11/22/17 19:45 Hep Bs Antigen Non-reactive (Negative) 11/22/17 19:45 Hep B Core IgM Ab Non-reactive (NonReactive) 11/22/17 19:45 Hepatitis C Antibody Reactive (NonReactive) A 11/22/17 19:45 Blood Type A POSITIVE 12/16/17 13:01 Antibody Screen Positive 12/16/17 13:01 SANTANA Antibody Screen Cancelled 12/16/17 13:01 Antibody Identification Cold Antibody 12/16/17 13:01 Crossmatch See Detail 12/16/17 13:01 Crossmatch Prewarmed See Detail 12/16/17 13:01
[2017-12-25 05:38] LABS: Alanine Aminotransferase 82 units/L (7-56); Albumin 2.3 g/dL (3.9-5); BUN/Creatinine Ratio 50; Blood Urea Nitrogen 30 mg/dL (9-20); Calcium 7.5 mg/dL (8.4-10.2); Hemolysis Index 63
--- NOTE | 2017-12-25 09:43 | Progress Note ---
Assessment and Plan Assessment * Acute kidney injury secondary to ATN --Intermittent HD started on 11/23/17 * Sepsis secondary to peritonitis/PEG malpositioning --RUQ/LUQ drains: Enterobacter, Heather (non albicans) * Aspiration pneumonitis related to above * Anemia * Acute CVA * Carotid artery disease s/p CEA * Encephalopathy Plan: * off dialysis. and follow up 24hr crcl 65ml/min * vasc cath needs to be removed * replete k and mag prn * d5w with kcl * Abx per ID * prbcs prn * Strict I/O * Avoid potential nephrptoxins * Dose medications for renal function * Replete lytes prn * Avoid nephrotoxins Subjective Date of service: 12/25/17 Principal diagnosis: Acute hypoxic respiratory failure, s/p Trach Interval history: new consult noted, last seen 11/09 with normal renal function Objective - Exam Narrative Exam: Constitutional: lethargic, other (intubated) Eyes: non-icteric ENT: oropharynx moist, other (ETT at 24 cm) Neck: supple, no JVD Ascultation: Bilateral: rhonchi (bilateral LT >>RT) Cardiovascular: regular rate and rhythm, other (tachycardic) Gastrointestinal: normoactive bowel sounds, non-distended Integumentary: normal Extremities: no cyanosis, no edema, other (RT femoral line in place) Neurologic: unable to assess (opens eyes spontaneously but does not follow commands . ) - Vital Signs Vital signs: Vital Signs - 12hr 12/24/17 12/24/17 12/24/17 21:49 22:00 23:00 Temperature Pulse Rate 108 H 105 H 101 H Respiratory 20 26 H Rate Blood Pressure 148/95 152/87 157/91 O2 Sat by Pulse 97 93 Oximetry O2 Sat by Pulse Oximetry [ Assessment] 12/24/17 12/25/17 12/25/17 23:10 00:00 00:39 Temperature 99.3 F Pulse Rate 102 H 97 H Respiratory 23 26 H Rate Blood Pressure 157/91 145/90 O2 Sat by Pulse 98 93 Oximetry O2 Sat by Pulse Oximetry [ Assessment] 12/25/17 12/25/17 12/25/17 00:50 01:00 02:00 Temperature Pulse Rate 101 H 99 H Respiratory 25 H 23 Rate Blood Pressure 174/100 147/92 O2 Sat by Pulse 93 94 Oximetry O2 Sat by Pulse 94 Oximetry [ Assessment] 12/25/17 12/25/17 12/25/17 03:00 04:00 04:36 Temperature 99.4 F Pulse Rate 102 H 99 H Respiratory 25 H 24 Rate Blood Pressure 164/97 131/85 O2 Sat by Pulse 95 93 Oximetry O2 Sat by Pulse Oximetry [ Assessment] 12/25/17 12/25/17 12/25/17 05:00 06:00 07:00 Temperature Pulse Rate 107 H 100 H 97 H Respiratory 22 24 25 H Rate Blood Pressure 163/96 143/89 141/89 O2 Sat by Pulse 94 94 93 Oximetry O2 Sat by Pulse Oximetry [ Assessment] 12/25/17 12/25/17 12/25/17 08:00 08:27 08:50 Temperature 98.7 F Pulse Rate 102 H Respiratory 23 25 H Rate Blood Pressure 141/89 O2 Sat by Pulse 96 96 Oximetry O2 Sat by Pulse 99 Oximetry [ Assessment] 12/25/17 08:53 Temperature Pulse Rate Respiratory Rate Blood Pressure O2 Sat by Pulse 99 Oximetry O2 Sat by Pulse Oximetry [ Assessment] - Lab 12/24/17 03:17 12/25/17 04:34 Most recent lab results Calcium 7.5 mg/dL (8.4-10.2) L 12/25/17 04:34 Phosphorus 1.60 mg/dL (2.5-4.5) L 12/20/17 19:00 Magnesium 1.80 mg/dL (1.7-2.3) 12/25/17 04:34 Urine Creatinine 55.8 mg/dL (0.1-20.0) H 12/22/17 10:50
--- NOTE | 2017-12-25 09:48 | Progress Note ---
Assessment and Plan Assessment and plan: Admitted 11/12/17 Mr. 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 He had a Carotid doppler done that revealed a right ICA 50-79% stenosis. CTA of the neck revealed 80% stenosis of the right ICA with probable 50% stenosis of the origin of the right common carotid artery. His symptoms were thought to be due to the Carotid artery stenosis which was disheartening since he was on Aspirin and plavix. He was scheduled for right CEA but needed Cardiac clearance. He underwent stress test on 10/05/17 and Twisting Department End Finder stated he was stable for non-cardiac history, low to moderate perioperative risk. So, he underwent right carotid enarterectomy on 10/09/17. Following the surgery, he developed recurrent left sided weakness/hemiparesis and was taken back to the OR on 10/10/17 for Open Thrombectomy of Right Internal Carotid Artery and Injection of tPA into the Artery. CT head obtained 2 days after surgery on 10/12 showed massive right cerebral hemisphere acute CVA with midline shift. He was subsequently discharged on 11/10/17 to [facility] but returned to PSYCHIATRIC ED and was re-admitted on 11/12/17 for suspected sepsis due to Aspiration post-obstructive pneumonia with suspected mucus plug and subsequently intubated on admission. On 11/20/17, patient went for Tracheostomy by Dr. Hughes, ENT. Then on 11/21/17 patient went into shock, most likely sepsis as WBC went up to 38.2k; initially thought to be due worsening aspiration pneumonia but it was discovered that he had a dislodged PEG tube from the Nursing, most likely present on admission, which lead to the shock from severe intra-abdominal infection/ peritonitis requiring IR drainage and General surgery drainage. Peritonitis - from dislodged peg tube, hence not present - has completed abx - s/p multiple intraabdominal drainages placed by IR and GS. -awaiting abdominal wounds to heal prior to placement of new PEG tube -Acute hypoxic respiratory failure due to Pneumonia on MV>96 hours s/p Tracheostomy 11/20/17: continue trache collar -septic shock, resolved -Aspiration pneumonia, resolved -Acute encephalopathy: currently at new baseline, non verbal, moves right side on command -Hypernatremia: improved with free water -Hypokalemia ; resolved hypomagnesemia: replace and monitor closely -ARF vasomotor nephropathy, poa: IV fluids, monitor bmp closely, received HD and now has renal recovery -Dysphagia with aspiration: s/p peg tube -Acute on chronic blood loss anemia w/Coffee-ground material from peg tube: GI is following, treat with ppi iv bid, EGD done 11/18/17 showed 8 mm cratered, 10 mm linear ulcer proximal lesser curvature with erythema but no other bleeding stigmata, gastritis and 4-5 cm hiatal hernia -Advance care planning: full code -Disposition: continue inpatient care, LTAC declined to accept patient without PEG tube. D/W Gen Sx, awaiting abdominal wounds to heal, then new peg tube prior to snf placement KILEY is daughter, Eugenie [phone], History Interval history: patient is calm and obeys simple commands no events, no agitation, no fevers no seizures, Hospitalist Physical - Physical exam Narrative exam: General appearance: Present:appears chronically ill - EENT Eyes: Present: PERRL - Neck Neck: Present: supple - Respiratory Respiratory effort: labored Respiratory: bilateral: rales - Cardiovascular Rhythm: regular Heart Sounds: Present: S1 & S2 - Extremities Extremities: no ischemia - Abdominal General gastrointestinal: soft, non-tender - Integumentary Integumentary: Present: clear, warm, dry - Psychiatric Psychiatric: non verbal, trached to trache collar - Neurologic Neurologic: left hemiplegia, able to move right side on command, but right side is weak condom cath in place - Constitutional Vitals: Temp Pulse Resp BP Pulse Ox 98.7 F 102 H 25 H 141/89 99 12/25/17 08:00 12/25/17 08:00 12/25/17 08:27 12/25/17 08:00 12/25/17 08:53 General appearance: Present: no acute distress Results - Labs CBC & Chem 7: 12/28/17 04:59 12/30/17 04:46 Labs: Laboratory Last Values WBC 4.6 K/mm3 (4.5-11.0) 12/24/17 03:17 RBC 3.03 M/mm3 (3.65-5.03) L 10/04/18 03:17 Hgb 7.6 gm/dl (11.8-15.2) L 12/24/17 03:17 Hct 23.7 % (35.5-45.6) L 12/24/17 03:17 MCV 78 fl (84-94) L 12/24/17 03:17 MCH 25 pg (28-32) L 12/24/17 03:17 MCHC 32 % (32-34) 12/24/17 03:17 RDW 17.8 % (13.2-15.2) H 12/24/17 03:17 Plt Count 218 K/mm3 (140-440) 12/24/17 03:17 Lymph % (Auto) 6.8 % (13.4-35.0) L 12/19/17 09:00 [place] % (Auto) Picker 12/20/17 19:00 Eos % (Auto) 0.2 % (0.0-4.3) 12/19/17 09:00 Baso % (Auto) 0.3 % (0.0-1.8) 12/19/17 09:00 Lymph # 0.8 K/mm3 (1.2-5.4) L 12/19/17 09:00 [place] # 1.6 K/mm3 (0.0-0.8) H 12/19/17 09:00 Eos # 0.0 K/mm3 (0.0-0.4) 12/19/17 09:00 Baso # 0.0 K/mm3 (0.0-0.1) 12/19/17 09:00 Add Manual Diff Complete 12/20/17 19:00 Total Counted 100 12/20/17 19:00 Seg Neutrophils % 80.1 % (40.0-70.0) H 12/19/17 09:00 Seg Neuts % (Manual) 74.0 % (40.0-70.0) H 12/20/17 19:00 Band Neutrophils % 2.0 % 12/20/17 19:00 Lymphocytes % (Manual) 6.0 % (13.4-35.0) L 12/20/17 19:00 Reactive Lymphs % (Man) 0 % 12/20/17 19:00 Monocytes % (Manual) 17.0 % (0.0-7.3) H 12/20/17 19:00 Eosinophils % (Manual) 1.0 % (0.0-4.3) 12/20/17 19:00 Basophils % (Manual) 0 % (0.0-1.8) 12/20/17 19:00 Metamyelocytes % 0 % 12/20/17 19:00 Myelocytes % 0 % 12/20/17 19:00 Promyelocytes % 0 % 12/20/17 19:00 Blast Cells % 0 % 12/20/17 19:00 Nucleated RBC % Not Reportable 12/20/17 19:00 Seg Neutrophils # 10.0 K/mm3 (1.8-7.7) H 12/19/17 09:00 Seg Neutrophils # Man 6.4 K/mm3 (1.8-7.7) 12/20/17 19:00 Band Neutrophils # 0.2 K/mm3 12/20/17 19:00 Lymphocytes # (Manual) 0.5 K/mm3 (1.2-5.4) L 12/20/17 19:00 Abs React Lymphs (Man) 0.0 K/mm3 12/20/17 19:00 Monocytes # (Manual) 1.5 K/mm3 (0.0-0.8) H 12/20/17 19:00 Eosinophils # (Manual) 0.1 K/mm3 (0.0-0.4) 12/20/17 19:00 Basophils # (Manual) 0.0 K/mm3 (0.0-0.1) 12/20/17 19:00 Metamyelocytes # 0.0 K/mm3 12/20/17 19:00 Myelocytes # 0.0 K/mm3 12/20/17 19:00 Promyelocytes # 0.0 K/mm3 12/20/17 19:00 Blast Cells # 0.0 K/mm3 12/20/17 19:00 WBC Morphology Not Reportable 12/20/17 19:00 Hypersegmented Neuts Not Reportable 12/20/17 19:00 Hyposegmented Neuts Not Reportable 12/20/17 19:00 Hypogranular Neuts Not Reportable 12/20/17 19:00 Smudge Cells Not Reportable 12/20/17 19:00 Toxic Granulation Not Reportable 12/20/17 19:00 Toxic Vacuolation Not Reportable 12/20/17 19:00 Dohle Bodies Not Reportable 12/20/17 19:00 Pelger-Huet Anomaly Not Reportable 12/20/17 19:00 Evangelina Rods Not Reportable 12/20/17 19:00 Platelet Estimate Appears normal 12/20/17 19:00 Clumped Platelets Not Reportable 12/20/17 19:00 Plt Clumps, EDTA Not Reportable 12/20/17 19:00 Large Platelets Not Reportable 12/20/17 19:00 Giant Platelets Not Reportable 12/20/17 19:00 Platelet Satelliting Not Reportable 12/20/17 19:00 Plt Morphology Comment Not Reportable 12/20/17 19:00 RBC Morphology Not Reportable 12/20/17 19:00 Dimorphic RBCs Not Reportable 12/20/17 19:00 Polychromasia Not Reportable 12/20/17 19:00 Hypochromasia 2+ 12/20/17 19:00 Poikilocytosis Few 12/20/17 19:00 Anisocytosis 1+ 12/20/17 19:00 Microcytosis 1+ 12/20/17 19:00 Macrocytosis Not Reportable 12/20/17 19:00 Spherocytes Not Reportable 12/20/17 19:00 Pappenheimer Bodies Not Reportable 12/20/17 19:00 Sickle Cells Not Reportable 12/20/17 19:00 Target Cells Not Reportable 12/20/17 19:00 Tear Drop Cells Not Reportable 12/20/17 19:00 Ovalocytes Few 12/20/17 19:00 Stomatocytes 1+ 12/12/17 05:41 Helmet Cells Not Reportable 12/20/17 19:00 [place] Bodies Not Reportable 12/20/17 19:00 [place] Rings Not Reportable 12/20/17 19:00 [place] Cells Not Reportable 12/20/17 19:00 Bite Cells Not Reportable 12/20/17 19:00 Crenated Cell Not Reportable 12/20/17 19:00 Elliptocytes Not Reportable 12/20/17 19:00 Acanthocytes (Spur) Not Reportable 12/20/17 19:00 Rouleaux Not Reportable 12/20/17 19:00 Hemoglobin C Crystals Not Reportable 12/20/17 19:00 Schistocytes Not Reportable 12/20/17 19:00 Malaria parasites Not Reportable 12/20/17 19:00 [place] Bodies Not Reportable 12/20/17 19:00 Hem Pathologist Commnt No 12/20/17 19:00 PT 15.4 Sec. (12.2-14.9) H 12/14/17 05:11 INR 1.17 (0.87-1.13) H 12/14/17 05:11 APTT 33.8 Sec. (24.2-36.6) 11/26/17 06:29 POC ABG pH 7.505 (7.35-7.45) H 11/23/17 04:56 POC ABG pCO2 26.3 (35-45) L 11/23/17 04:56 POC ABG pO2 100 (80-105) 11/23/17 04:56 POC ABG HCO3 20.8 11/23/17 04:56 POC ABG Total CO2 22 11/23/17 04:56 POC ABG O2 Sat 98 11/23/17 04:56 POC ABG Base Excess -2 11/23/17 04:56 FiO2 30 % 11/23/17 04:56 Sodium 145 mmol/L (137-145) 12/25/17 04:34 Potassium 3.9 mmol/L (3.6-5.0) 12/25/17 04:34 Chloride 104.3 mmol/L (98-107) 12/25/17 04:34 Carbon Dioxide 27 mmol/L (22-30) 12/25/17 04:34 Anion Gap 18 mmol/L 12/25/17 04:34 BUN 30 mg/dL (9-20) H 12/25/17 04:34 Creatinine 0.6 mg/dL (0.8-1.5) L 12/25/17 04:34 Estimated GFR > 60 ml/min 12/25/17 04:34 BUN/Creatinine Ratio 50 % 12/25/17 04:34 Glucose 114 mg/dL (75-100) H 12/25/17 04:34 POC Glucose 136 (70-105) H 12/25/17 06:25 Lactic Acid 1.80 mmol/L (0.7-2.0) 11/27/17 04:06 Calcium 7.5 mg/dL (8.4-10.2) L 12/25/17 04:34 Phosphorus 1.60 mg/dL (2.5-4.5) L 12/20/17 19:00 Magnesium 1.80 mg/dL (1.7-2.3) 12/25/17 04:34 Total Bilirubin 0.30 mg/dL (0.1-1.2) 12/25/17 04:34 AST 84 units/L (5-40) H 12/25/17 04:34 ALT 82 units/L (7-56) H 12/25/17 04:34 Alkaline Phosphatase 322 units/L (35-129) H 12/25/17 04:34 Total Creatine Kinase 84 units/L (55-170) 11/12/17 20:03 CK-MB (CK-2) < 1.0 ng/mL (0.0-4.0) 11/12/17 20:03 CK-MB (CK-2) Rel Index 1.1 (0-4) 11/12/17 20:03 Troponin T 0.098 ng/mL (0.00-0.029) H 11/12/17 Unknown C-Reactive Protein 25.70 mg/dL (0.00-1.30) H 11/11/17 23:20 NT-Pro-B Natriuret Pep 792.4 pg/mL (0-900) 11/11/17 23:20 Total Protein 6.0 g/dL (6.3-8.2) L 12/25/17 04:34 Albumin 2.3 g/dL (3.9-5) L 12/25/17 04:34 Albumin/Globulin Ratio 0.6 % 12/25/17 04:34 Triglycerides 86 mg/dL (2-149) 11/11/17 23:20 Cholesterol 82 mg/dL (50-199) 11/11/17 23:20 LDL Cholesterol Direct 42 mg/dL (50-130) L 11/11/17 23:20 HDL Cholesterol 24 mg/dL (40-59) L 11/11/17 23:20 Cholesterol/HDL Ratio 3.41 % 11/11/17 23:20 Lipase 30 units/L (13-60) 11/11/17 23:20 Urine Color Nicole (Yellow) 11/11/17 23:09 Urine Turbidity Cloudy (Clear) 11/11/17 23:09 Urine pH 5.0 (5.0-7.0) 11/11/17 23:09 Ur Specific [place] 1.025 (1.003-1.030) 11/11/17 23:09 Urine Protein 100 mg/dl mg/dL (Negative) 11/11/17 23:09 Urine Glucose (UA) 50 mg/dL (Negative) 11/11/17 23:09 Urine Ketones Neg mg/dL (Negative) 11/11/17 23:09 Urine Blood Neg (Negative) 11/11/17 23:09 Urine Nitrite Neg (Negative) 11/11/17 23:09 Urine Bilirubin Neg (Negative) 11/11/17 23:09 Urine Urobilinogen 4.0 mg/dL (<2.0) 11/11/17 23:09 Ur Leukocyte Esterase Neg (Negative) 11/11/17 23:09 Urine WBC (Auto) 5.0 /HPF (0.0-6.0) 11/11/17 23:09 Urine RBC (Auto) 4.0 /HPF (0.0-6.0) 11/11/17 23:09 Urine Bacteria (Auto) 3+ /HPF (Negative) 11/11/17 23:09 Amorphous Crystals 3+ 11/11/17 23:09 Hyaline Casts 76 /LPF 11/11/17 23:09 Urine Mucus 2+ /HPF 11/11/17 23:09 Urine Total Volume 1350 12/22/17 10:50 Urine Creatinine 55.8 mg/dL (0.1-20.0) H 12/22/17 10:50 Ur Creatinine 24 Hour 0.8 (0.8-2.8) 12/22/17 10:50 Hepatitis A IgM Ab Non-reactive (NonReactive) 11/22/17 19:45 Hep Bs Antigen Non-reactive (Negative) 11/22/17 19:45 Hep B Core IgM Ab Non-reactive (NonReactive) 11/22/17 19:45 Hepatitis C Antibody Reactive (NonReactive) A 11/22/17 19:45 Blood Type A POSITIVE 12/16/17 13:01 Antibody Screen Positive 12/16/17 13:01 SANTANA Antibody Screen Cancelled 12/16/17 13:01 Antibody Identification Cold Antibody 12/16/17 13:01 Crossmatch See Detail 12/16/17 13:01 Crossmatch Prewarmed See Detail 12/16/17 13:01
[2017-12-25] MEDS: KCL 20 MEQ in D5W 1,000 ML IV SCH ×2 (09:58→21:35)
[2017-12-25] MEDS: PREVACID SOLUTAB FEEDTUBE SCH ×2 (09:58→21:35)
[2017-12-25] MEDS: LOPRESSOR PO SCH ×2 (09:58→21:34)
[2017-12-25] MEDS: POTASSIUM CHLORIDE FEEDTUBE SCH (09:59)
--- NOTE | 2017-12-25 13:55 | Progress Note ---
Assessment and Plan Imp: 1. CVA 2. Hemiparesis 3. Aspiration pneumonitis related to above 4. Sepsis 2/2 peritonitis/PEG mal-position, better 5. DARYA 6. s/p Trach/PEG Rec: 1. Holding HD per renal; K and mag repletion per renal 2. ABX per ID -> Merrem/Diflucan 3. Abdominal drains as per surgery/IR 4. SCDs; GI PPx 5. Cont. Tpiece as tolerated; trach will need to be permanent for secretion clearance 6. Pulm status stable 7. Insurance denies LTAC coverage Long-term prognosis poor; no family present Subjective Date of service: 12/25/17 Principal diagnosis: Acute hypoxic respiratory failure, s/p Trach Interval history: Awake, alert. On 28% Tpiece and tolerating well. Unable to give history. Active Medications Acetaminophen (Tylenol) 650 mg FEEDTUBE Q6H PRN PRN Reason: Pain, Mild (1-3) Last Admin: 12/22/17 20:37 Dose: 650 mg Albumin Human (Alburx 25% (Albumin)) 25 gm IV TIM PRN PRN Reason: Hypotension Last Admin: 12/18/17 12:13 Dose: 25 gm Lipase/Protease/Amylase (Pancreaze Dr 10,500 Unit) 1 each FEEDTUBE PRN PRN PRN Reason: For Clogged Feeding Tube Dextrose (D50w (25gm) Syringe) 50 ml IV PRN PRN PRN Reason: Hypoglycemia Hydralazine HCl (Apresoline) 5 mg IV Q6HR PRN PRN Reason: Hypertension Last Admin: 12/17/17 04:14 Dose: 5 mg Hydromorphone HCl (Dilaudid) 1 mg IV Q3H PRN PRN Reason: Pain , Severe (7-10) Last Admin: 12/21/17 00:04 Dose: 1 mg Sodium Chloride (Nacl 0.9%) 100 mls @ 999 mls/hr IV TIM PRN PRN Reason: Hypotension Potassium Chloride 20 meq/ (Dextrose) 1,010 mls @ 100 mls/hr IV DIRECT [facility] Stop: 12/26/17 12:00 Last Admin: 12/25/17 09:58 Dose: 100 mls/hr Lansoprazole (Prevacid Solutab) 30 mg FEEDTUBE BID OSIRIS Last Admin: 12/25/17 09:58 Dose: 30 mg Metoprolol Tartrate (Lopressor) 25 mg PO BID [facility] Last Admin: 12/25/17 09:58 Dose: 25 mg Ondansetron HCl (Zofran) 4 mg IV Q3H PRN PRN Reason: Nausea And Vomiting Last Admin: 12/17/17 20:46 Dose: 4 mg Potassium Chloride (Potassium Chloride) 40 meq FEEDTUBE QDAY OSIRIS Last Admin: 12/25/17 09:59 Dose: 40 meq Simple Syrup (Simple Syrup) 15 ml FEEDTUBE PRN PRN PRN Reason: Hypoglycemia Simple Syrup (Simple Syrup) 30 ml FEEDTUBE PRN PRN PRN Reason: Hypoglycemia Sodium Bicarbonate (Sodium Bicarbonate) 325 mg FEEDTUBE PRN PRN PRN Reason: For Clogged Feeding Tube Objective Vital Signs - 12hr 12/25/17 12/25/17 12/25/17 02:00 03:00 04:00 Temperature Pulse Rate 99 H 102 H 99 H Respiratory 23 25 H 24 Rate Blood Pressure 147/92 164/97 131/85 O2 Sat by Pulse 94 95 93 Oximetry O2 Sat by Pulse Oximetry [ Assessment] 12/25/17 12/25/17 12/25/17 04:36 05:00 06:00 Temperature 99.4 F Pulse Rate 107 H 100 H Respiratory 22 24 Rate Blood Pressure 163/96 143/89 O2 Sat by Pulse 94 94 Oximetry O2 Sat by Pulse Oximetry [ Assessment] 12/25/17 12/25/17 12/25/17 07:00 08:00 08:27 Temperature 98.7 F Pulse Rate 97 H 102 H Respiratory 25 H 23 25 H Rate Blood Pressure 141/89 141/89 O2 Sat by Pulse 93 96 96 Oximetry O2 Sat by Pulse Oximetry [ Assessment] 12/25/17 12/25/17 12/25/17 08:50 08:53 09:00 Temperature Pulse Rate 110 H Respiratory 30 H Rate Blood Pressure 146/96 O2 Sat by Pulse 99 99 Oximetry O2 Sat by Pulse 99 Oximetry [ Assessment] 12/25/17 12/25/17 12/25/17 09:58 10:00 11:00 Temperature Pulse Rate 105 H 103 H 106 H Respiratory 25 H 22 Rate Blood Pressure 146/96 147/91 163/102 O2 Sat by Pulse 98 99 Oximetry O2 Sat by Pulse Oximetry [ Assessment] 12/25/17 12/25/17 12:00 13:00 Temperature 98.4 F Pulse Rate 106 H 104 H Respiratory 22 25 H Rate Blood Pressure 156/97 153/89 O2 Sat by Pulse 95 93 Oximetry O2 Sat by Pulse Oximetry [ Assessment] Constitutional: no acute distress, alert Eyes: non-icteric ENT: oropharynx moist Neck: supple (trach in position) Effort: normal Ascultation: Bilateral: rhonchi (mild bilateral) Cardiovascular: regular rate and rhythm Gastrointestinal: normoactive bowel sounds, soft, non-tender, other (drains in place) Integumentary: normal Extremities: no cyanosis, pink and warm, edema (2+ bilateral LE edema) Neurologic: other (L hemiparesis,awake, response to my voice) Psychiatric: other (unable to assess) CBC and BMP: 12/24/17 03:17 12/25/17 04:34 ABG, PT/INR, D-dimer: ABG POC ABG pH 7.505 (7.35-7.45) H 11/23/17 04:56 POC ABG pCO2 26.3 (35-45) L 11/23/17 04:56 POC ABG pO2 100 (80-105) 11/23/17 04:56 POC ABG HCO3 20.8 11/23/17 04:56 POC ABG Total CO2 22 11/23/17 04:56 POC ABG O2 Sat 98 11/23/17 04:56 PT/INR, D-dimer PT 15.4 Sec. (12.2-14.9) H 12/14/17 05:11 INR 1.17 (0.87-1.13) H 12/14/17 05:11 Abnormal lab findings: Abnormal Labs 11/11/17 11/11/17 11/11/17 23:18 23:20 23:20 WBC RBC Hgb 10.4 L Hct 32.6 L D MCV MCH 27 L MCHC RDW 17.4 H Plt Count 105 L Lymph % (Auto) [facility] % (Auto) Eos % (Auto) Lymph # [facility] # Eos # Seg Neutrophils % Seg Neuts % (Manual) Lymphocytes % (Manual) 8.0 L Monocytes % (Manual) Eosinophils % (Manual) Nucleated RBC % 1.0 H Seg Neutrophils # Seg Neutrophils # Man Lymphocytes # (Manual) 0.7 L Monocytes # (Manual) Eosinophils # (Manual) PT INR POC ABG pH 7.550 H POC ABG pCO2 31.6 L POC ABG pO2 Sodium 146 H Potassium Chloride Carbon Dioxide BUN 26 H Creatinine 1.7 H D Glucose 133 H POC Glucose Lactic Acid Calcium Phosphorus Magnesium AST ALT Alkaline Phosphatase Troponin T 0.117 H* C-Reactive Protein Total Protein Albumin 2.5 L LDL Cholesterol Direct 42 L HDL Cholesterol 24 L Urine Creatinine Hepatitis C Antibody Crossmatch Crossmatch Prewarmed 11/11/17 11/12/17 11/12/17 23:20 00:23 00:23 WBC RBC Hgb Hct MCV MCH MCHC RDW Plt Count Lymph % (Auto) [facility] % (Auto) Eos % (Auto) Lymph # [facility] # Eos # Seg Neutrophils % Seg Neuts % (Manual) Lymphocytes % (Manual) Monocytes % (Manual) Eosinophils % (Manual) Nucleated RBC % Seg Neutrophils # Seg Neutrophils # Man Lymphocytes # (Manual) Monocytes # (Manual) Eosinophils # (Manual) PT 16.7 H INR 1.28 H POC ABG pH POC ABG pCO2 POC ABG pO2 Sodium Potassium Chloride Carbon Dioxide BUN Creatinine Glucose POC Glucose Lactic Acid 3.20 H* Calcium Phosphorus Magnesium AST ALT Alkaline Phosphatase Troponin T C-Reactive Protein 25.70 H Total Protein Albumin LDL Cholesterol Direct HDL Cholesterol Urine Creatinine Hepatitis C Antibody Crossmatch Crossmatch Prewarmed 11/12/17 11/12/17 11/12/17 00:46 01:27 01:27 WBC RBC Hgb Hct MCV MCH MCHC RDW Plt Count Lymph % (Auto) [facility] % (Auto) Eos % (Auto) Lymph # [facility] # Eos # Seg Neutrophils % Seg Neuts % (Manual) Lymphocytes % (Manual) Monocytes % (Manual) Eosinophils % (Manual) Nucleated RBC % Seg Neutrophils # Seg Neutrophils # Man Lymphocytes # (Manual) Monocytes # (Manual) Eosinophils # (Manual) PT INR POC ABG pH 7.495 H POC ABG pCO2 32.0 L POC ABG pO2 64 L Sodium Potassium Chloride Carbon Dioxide BUN Creatinine Glucose POC Glucose Lactic Acid 3.70 H* Calcium Phosphorus Magnesium AST ALT Alkaline Phosphatase Troponin T 0.096 H C-Reactive Protein Total Protein Albumin LDL Cholesterol Direct HDL Cholesterol Urine Creatinine Hepatitis C Antibody Crossmatch Crossmatch Prewarmed 11/12/17 11/12/17 11/12/17 03:21 04:50 06:27 WBC RBC Hgb Hct MCV MCH MCHC RDW Plt Count Lymph % (Auto) [facility] % (Auto) Eos % (Auto) Lymph # [facility] # Eos # Seg Neutrophils % Seg Neuts % (Manual) Lymphocytes % (Manual) Monocytes % (Manual) Eosinophils % (Manual) Nucleated RBC % Seg Neutrophils # Seg Neutrophils # Man Lymphocytes # (Manual) Monocytes # (Manual) Eosinophils # (Manual) PT INR POC ABG pH POC ABG pCO2 POC ABG pO2 109 H Sodium Potassium Chloride Carbon Dioxide BUN Creatinine Glucose POC Glucose Lactic Acid 3.80 H* 2.20 H* Calcium Phosphorus Magnesium AST ALT Alkaline Phosphatase Troponin T C-Reactive Protein Total Protein Albumin LDL Cholesterol Direct HDL Cholesterol Urine Creatinine Hepatitis C Antibody Crossmatch Crossmatch Prewarmed 11/12/17 11/12/17 11/12/17 09:24 09:24 09:24 WBC RBC Hgb 10.4 L Hct 33.4 L MCV MCH MCHC RDW Plt Count Lymph % (Auto) [facility] % (Auto) Eos % (Auto) Lymph # [facility] # Eos # Seg Neutrophils % Seg Neuts % (Manual) Lymphocytes % (Manual) Monocytes % (Manual) Eosinophils % (Manual) Nucleated RBC % Seg Neutrophils # Seg Neutrophils # Man Lymphocytes # (Manual) Monocytes # (Manual) Eosinophils # (Manual) PT INR POC ABG pH POC ABG pCO2 POC ABG pO2 Sodium Potassium Chloride Carbon Dioxide BUN Creatinine Glucose POC Glucose Lactic Acid 2.90 H* Calcium Phosphorus Magnesium AST ALT Alkaline Phosphatase Troponin T 0.091 H C-Reactive Protein Total Protein Albumin LDL Cholesterol Direct HDL Cholesterol Urine Creatinine Hepatitis C Antibody Crossmatch Crossmatch Prewarmed 11/12/17 11/12/17 11/12/17 12:56 20:03 Unknown WBC RBC Hgb Hct MCV MCH MCHC RDW Plt Count Lymph % (Auto) [facility] % (Auto) Eos % (Auto) Lymph # [facility] # Eos # Seg Neutrophils % Seg Neuts % (Manual) Lymphocytes % (Manual) Monocytes % (Manual) Eosinophils % (Manual) Nucleated RBC % Seg Neutrophils # Seg Neutrophils # Man Lymphocytes # (Manual) Monocytes # (Manual) Eosinophils # (Manual) PT INR POC ABG pH POC ABG pCO2 POC ABG pO2 Sodium Potassium Chloride Carbon Dioxide BUN Creatinine Glucose POC Glucose Lactic Acid 3.60 H* Calcium Phosphorus Magnesium AST ALT Alkaline Phosphatase Troponin T 0.102 H* 0.156 H* D C-Reactive Protein Total Protein Albumin LDL Cholesterol Direct HDL Cholesterol Urine Creatinine Hepatitis C Antibody Crossmatch Crossmatch Prewarmed 11/12/17 11/13/17 11/13/17 Unknown 04:50 04:50 WBC 12.2 H RBC 3.51 L Hgb 9.3 L Hct 30.1 L MCV MCH 26 L MCHC 31 L RDW 18.0 H Plt Count 128 L Lymph % (Auto) 8.[address] [facility] % (Auto) 11.1 H Eos % (Auto) Lymph # 1.[address] [facility] # 1.4 H Eos # Seg Neutrophils % 80.1 H Seg Neuts % (Manual) Lymphocytes % (Manual) Monocytes % (Manual) Eosinophils % (Manual) Nucleated RBC % Seg Neutrophils # 9.8 H Seg Neutrophils # Man Lymphocytes # (Manual) Monocytes # (Manual) Eosinophils # (Manual) PT INR POC ABG pH POC ABG pCO2 POC ABG pO2 Sodium 149 H Potassium 5.1 H Chloride 114.4 H Carbon Dioxide 18 L BUN 52 H Creatinine 3.3 H D Glucose 129 H POC Glucose Lactic Acid Calcium 7.9 L Phosphorus Magnesium AST ALT Alkaline Phosphatase Troponin T 0.098 H C-Reactive Protein Total Protein Albumin LDL Cholesterol Direct HDL Cholesterol Urine Creatinine Hepatitis C Antibody Crossmatch Crossmatch Prewarmed 11/13/17 11/13/17 11/14/17 04:51 09:34 04:21 WBC RBC Hgb Hct MCV MCH MCHC RDW Plt Count Lymph % (Auto) [facility] % (Auto) Eos % (Auto) Lymph # [facility] # Eos # Seg Neutrophils % Seg Neuts % (Manual) Lymphocytes % (Manual) Monocytes % (Manual) Eosinophils % (Manual) Nucleated RBC % Seg Neutrophils # Seg Neutrophils # Man Lymphocytes # (Manual) Monocytes # (Manual) Eosinophils # (Manual) PT INR POC ABG pH POC ABG pCO2 30.1 L 29.8 L POC ABG pO2 135 H Sodium Potassium Chloride Carbon Dioxide BUN Creatinine Glucose POC Glucose Lactic Acid 2.10 H* Calcium Phosphorus Magnesium AST ALT Alkaline Phosphatase Troponin T C-Reactive Protein Total Protein Albumin LDL Cholesterol Direct HDL Cholesterol Urine Creatinine Hepatitis C Antibody Crossmatch Crossmatch Prewarmed 11/15/17 11/15/17 11/16/17 04:52 15:50 05:17 WBC RBC Hgb Hct MCV MCH MCHC RDW Plt Count Lymph % (Auto) [facility] % (Auto) Eos % (Auto) Lymph # [facility] # Eos # Seg Neutrophils % Seg Neuts % (Manual) Lymphocytes % (Manual) Monocytes % (Manual) Eosinophils % (Manual) Nucleated RBC % Seg Neutrophils # Seg Neutrophils # Man Lymphocytes # (Manual) Monocytes # (Manual) Eosinophils # (Manual) PT INR POC ABG pH POC ABG pCO2 29.5 L 31.5 L POC ABG pO2 115 H 122 H Sodium 154 H Potassium Chloride 117.9 H Carbon Dioxide 19 L BUN 87 H Creatinine 4.1 H Glucose POC Glucose Lactic Acid Calcium 8.1 L Phosphorus Magnesium AST ALT Alkaline Phosphatase Troponin T C-Reactive Protein Total Protein Albumin LDL Cholesterol Direct HDL Cholesterol Urine Creatinine Hepatitis C Antibody Crossmatch Crossmatch Prewarmed 11/16/17 11/17/17 11/17/17 16:37 04:07 10:00 WBC 14.7 H RBC 3.23 L Hgb 8.3 L Hct 28.1 L MCV MCH 26 L MCHC 30 L RDW 18.8 H Plt Count Lymph % (Auto) [facility] % (Auto) Eos % (Auto) Lymph # [facility] # Eos # Seg Neutrophils % Seg Neuts % (Manual) 75 H Lymphocytes % (Manual) 8.0 L Monocytes % (Manual) Eosinophils % (Manual) Nucleated RBC % 1.0 H Seg Neutrophils # Seg Neutrophils # Man 11.0 H Lymphocytes # (Manual) Monocytes # (Manual) 0.9 H Eosinophils # (Manual) PT INR POC ABG pH POC ABG pCO2 POC ABG pO2 Sodium 153 H 155 H Potassium Chloride 117.3 H 119.4 H Carbon Dioxide 19 L 20 L BUN 90 H 89 H Creatinine 3.9 H 3.6 H Glucose 111 H 115 H POC Glucose Lactic Acid Calcium 8.1 L 8.0 L Phosphorus Magnesium AST ALT Alkaline Phosphatase Troponin T C-Reactive Protein Total Protein Albumin LDL Cholesterol Direct HDL Cholesterol Urine Creatinine Hepatitis C Antibody Crossmatch Crossmatch P[place]armed 11/18/17 11/18/17 11/18/17 04:34 04:34 04:34 WBC 15.5 H RBC 3.13 L Hgb 8.1 L Hct 26.3 L MCV MCH 26 L MCHC 31 L RDW 18.6 H Plt Count Lymph % (Auto) [facility] % (Auto) Eos % (Auto) Lymph # [facility] # Eos # Seg Neutrophils % Seg Neuts % (Manual) 81.0 H Lymphocytes % (Manual) 7.0 L Monocytes % (Manual) Eosinophils % (Manual) Nucleated RBC % 1.0 H Seg Neutrophils # Seg Neutrophils # Man 12.6 H Lymphocytes # (Manual) 1.1 L Monocytes # (Manual) Eosinophils # (Manual) PT 16.7 H INR 1.30 H POC ABG pH POC ABG pCO2 POC ABG pO2 Sodium 155 H Potassium 3.2 L Chloride 121.0 H Carbon Dioxide 20 L BUN 74 H Creatinine 2.9 H Glucose 126 H POC Glucose Lactic Acid Calcium 7.9 L Phosphorus Magnesium AST ALT Alkaline Phosphatase Troponin T C-Reactive Protein Total Protein Albumin LDL Cholesterol Direct HDL Cholesterol Urine Creatinine Hepatitis C Antibody Crossmatch Crossmatch P[place]armed 11/19/17 11/19/17 11/20/17 04:44 04:44 00:38 WBC 19.0 H 22.2 H RBC 3.20 L 3.17 L Hgb 8.4 L 7.9 L Hct 27.9 L 26.4 L MCV 83 L MCH 26 L 25 L MCHC 30 L 30 L RDW 19.1 H 18.9 H Plt Count Lymph % (Auto) [facility] % (Auto) Eos % (Auto) Lymph # [facility] # Eos # Seg Neutrophils % Seg Neuts % (Manual) 83.0 H Lymphocytes % (Manual) 3.0 L Monocytes % (Manual) 9.0 H Eosinophils % (Manual) Nucleated RBC % Seg Neutrophils # Seg Neutrophils # Man 18.4 H Lymphocytes # (Manual) 0.7 L Monocytes # (Manual) 2.0 H Eosinophils # (Manual) PT INR POC ABG pH POC ABG pCO2 POC ABG pO2 Sodium 152 H Potassium Chloride 117.1 H Carbon Dioxide 17 L BUN 66 H Creatinine 2.8 H Glucose 119 H POC Glucose Lactic Acid Calcium 7.8 L Phosphorus Magnesium 2.70 H AST ALT Alkaline Phosphatase Troponin T C-Reactive Protein Total Protein Albumin LDL Cholesterol Direct HDL Cholesterol Urine Creatinine Hepatitis C Antibody Crossmatch Crossmatch P[place]armed 11/20/17 11/20/17 11/20/17 03:29 04:48 13:38 WBC RBC Hgb Hct MCV MCH MCHC RDW Plt Count Lymph % (Auto) [facility] % (Auto) Eos % (Auto) Lymph # [facility] # Eos # Seg Neutrophils % Seg Neuts % (Manual) Lymphocytes % (Manual) Monocytes % (Manual) Eosinophils % (Manual) Nucleated RBC % Seg Neutrophils # Seg Neutrophils # Man Lymphocytes # (Manual) Monocytes # (Manual) Eosinophils # (Manual) PT INR POC ABG pH POC ABG pCO2 29.4 L POC ABG pO2 Sodium 148 H Potassium 3.4 L Chloride 113.7 H Carbon Dioxide 18 L BUN 59 H Creatinine 2.7 H Glucose 113 H POC Glucose 128 H Lactic Acid Calcium 7.8 L Phosphorus Magnesium AST ALT Alkaline Phosphatase Troponin T C-Reactive Protein Total Protein Albumin LDL Cholesterol Direct HDL Cholesterol Urine Creatinine Hepatitis C Antibody Crossmatch Crossmatch P[place]armed 11/20/17 11/20/17 11/21/17 17:38 23:40 00:13 WBC RBC Hgb 8.4 L Hct 28.0 L MCV MCH MCHC RDW Plt Count Lymph % (Auto) [facility] % (Auto) Eos % (Auto) Lymph # [facility] # Eos # Seg Neutrophils % Seg Neuts % (Manual) Lymphocytes % (Manual) Monocytes % (Manual) Eosinophils % (Manual) Nucleated RBC % Seg Neutrophils # Seg Neutrophils # Man Lymphocytes # (Manual) Monocytes # (Manual) Eosinophils # (Manual) PT INR POC ABG pH POC ABG pCO2 POC ABG pO2 Sodium Potassium Chloride Carbon Dioxide BUN Creatinine Glucose POC Glucose 115 H 145 H Lactic Acid Calcium Phosphorus Magnesium AST ALT Alkaline Phosphatase Troponin T C-Reactive Protein Total Protein Albumin LDL Cholesterol Direct HDL Cholesterol Urine Creatinine Hepatitis C Antibody Crossmatch Crossmatch P[place]armed 11/21/17 11/21/17 11/21/17 04:30 04:30 04:58 WBC 21.0 H RBC Hgb 9.6 L Hct 32.7 L MCV MCH 25 L MCHC 29 L RDW 19.7 H Plt Count 746 H Lymph % (Auto) [facility] % (Auto) Eos % (Auto) Lymph # [facility] # Eos # Seg Neutrophils % Seg Neuts % (Manual) Lymphocytes % (Manual) Monocytes % (Manual) Eosinophils % (Manual) Nucleated RBC % Seg Neutrophils # Seg Neutrophils # Man Lymphocytes # (Manual) Monocytes # (Manual) Eosinophils # (Manual) PT INR POC ABG pH POC ABG pCO2 POC ABG pO2 Sodium Potassium Chloride 109.4 H Carbon Dioxide 14 L BUN 59 H Creatinine 3.0 H Glucose 137 H POC Glucose 132 H Lactic Acid Calcium 7.6 L Phosphorus Magnesium AST ALT Alkaline Phosphatase Troponin T C-Reactive Protein Total Protein Albumin LDL Cholesterol Direct HDL Cholesterol Urine Creatinine Hepatitis C Antibody Crossmatch Crossmatch P[place]armed 11/21/17 11/21/17 11/21/17 06:30 13:43 14:17 WBC 38.2 H RBC Hgb 9.0 L Hct 32.3 L MCV MCH 25 L MCHC 28 L RDW 20.0 H Plt Count 766 H Lymph % (Auto) [facility] % (Auto) Eos % (Auto) Lymph # [facility] # Eos # Seg Neutrophils % Seg Neuts % (Manual) 85.0 H Lymphocytes % (Manual) 1.0 L Monocytes % (Manual) Eosinophils % (Manual) Nucleated RBC % 2.0 H Seg Neutrophils # Seg Neutrophils # Man 32.5 H Lymphocytes # (Manual) 0.4 L Monocytes # (Manual) 2.3 H Eosinophils # (Manual) PT INR POC ABG pH POC ABG pCO2 18.6 L POC ABG pO2 121 H Sodium 146 H Potassium Chloride 110.9 H Carbon Dioxide 11 L BUN 62 H Creatinine 4.0 H Glucose 64 L POC Glucose Lactic Acid Calcium 7.6 L Phosphorus Magnesium AST ALT Alkaline Phosphatase Troponin T C-Reactive Protein Total Protein Albumin LDL Cholesterol Direct HDL Cholesterol Urine Creatinine Hepatitis C Antibody Crossmatch Crossmatch P[place]armed 11/21/17 11/21/17 11/22/17 14:17 19:09 00:05 WBC RBC Hgb Hct MCV MCH MCHC RDW Plt Count Lymph % (Auto) [facility] % (Auto) Eos % (Auto) Lymph # [facility] # Eos # Seg Neutrophils % Seg Neuts % (Manual) Lymphocytes % (Manual) Monocytes % (Manual) Eosinophils % (Manual) Nucleated RBC % Seg Neutrophils # Seg Neutrophils # Man Lymphocytes # (Manual) Monocytes # (Manual) Eosinophils # (Manual) PT INR POC ABG pH POC ABG pCO2 20.0 L POC ABG pO2 Sodium Potassium Chloride Carbon Dioxide BUN Creatinine Glucose POC Glucose 127 H Lactic Acid 7.70 H* Calcium Phosphorus Magnesium AST ALT Alkaline Phosphatase Troponin T C-Reactive Protein Total Protein Albumin LDL Cholesterol Direct HDL Cholesterol Urine Creatinine Hepatitis C Antibody Crossmatch Crossmatch P[place]armed 11/22/17 11/22/17 11/22/17 03:53 06:00 07:25 WBC RBC Hgb Hct MCV MCH MCHC RDW Plt Count Lymph % (Auto) [facility] % (Auto) Eos % (Auto) Lymph # [facility] # Eos # Seg Neutrophils % Seg Neuts % (Manual) Lymphocytes % (Manual) Monocytes % (Manual) Eosinophils % (Manual) Nucleated RBC % Seg Neutrophils # Seg Neutrophils # Man Lymphocytes # (Manual) Monocytes # (Manual) Eosinophils # (Manual) PT INR POC ABG pH POC ABG pCO2 22.2 L POC ABG pO2 Sodium 147 H Potassium Chloride 111.9 H Carbon Dioxide 16 L BUN 72 H Creatinine 5.1 H Glucose 181 H POC Glucose 180 H Lactic Acid Calcium 7.1 L Phosphorus Magnesium AST ALT Alkaline Phosphatase Troponin T C-Reactive Protein Total Protein Albumin LDL Cholesterol Direct HDL Cholesterol Urine Creatinine Hepatitis C Antibody Crossmatch Crossmatch P[place]armed 11/22/17 11/22/17 11/22/17 07:25 07:25 12:05 WBC 31.4 H RBC 3.22 L Hgb 8.0 L Hct 26.7 L MCV 83 L MCH 25 L MCHC 30 L RDW 19.4 H Plt Count 602 H Lymph % (Auto) [facility] % (Auto) Eos % (Auto) Lymph # [facility] # Eos # Seg Neutrophils % Seg Neuts % (Manual) Lymphocytes % (Manual) Monocytes % (Manual) Eosinophils % (Manual) Nucleated RBC % Seg Neutrophils # Seg Neutrophils # Man Lymphocytes # (Manual) Monocytes # (Manual) Eosinophils # (Manual) PT INR POC ABG pH POC ABG pCO2 POC ABG pO2 Sodium Potassium Chloride Carbon Dioxide BUN Creatinine Glucose POC Glucose 182 H Lactic Acid 5.00 H* Calcium Phosphorus Magnesium AST ALT Alkaline Phosphatase Troponin T C-Reactive Protein Total Protein Albumin LDL Cholesterol Direct HDL Cholesterol Urine Creatinine Hepatitis C Antibody Crossmatch Crossmatch P[place]armed 11/22/17 11/23/17 11/23/17 19:45 01:28 04:56 WBC RBC Hgb Hct MCV MCH MCHC RDW Plt Count Lymph % (Auto) [facility] % (Auto) Eos % (Auto) Lymph # [facility] # Eos # Seg Neutrophils % Seg Neuts % (Manual) Lymphocytes % (Manual) Monocytes % (Manual) Eosinophils % (Manual) Nucleated RBC % Seg Neutrophils # Seg Neutrophils # Man Lymphocytes # (Manual) Monocytes # (Manual) Eosinophils # (Manual) PT INR POC ABG pH 7.505 H POC ABG pCO2 26.3 L POC ABG pO2 Sodium Potassium Chloride Carbon Dioxide BUN Creatinine Glucose POC Glucose 165 H Lactic Acid Calcium Phosphorus Magnesium AST ALT Alkaline Phosphatase Troponin T C-Reactive Protein Total Protein Albumin LDL Cholesterol Direct HDL Cholesterol Urine Creatinine Hepatitis C Antibody Reactive A Crossmatch Crossmatch P[facility]armed 11/23/17 11/23/17 11/23/17 07:05 12:32 17:53 WBC RBC Hgb Hct MCV MCH MCHC RDW Plt Count Lymph % (Auto) [facility] % (Auto) Eos % (Auto) Lymph # [facility] # Eos # Seg Neutrophils % Seg Neuts % (Manual) Lymphocytes % (Manual) Monocytes % (Manual) Eosinophils % (Manual) Nucleated RBC % Seg Neutrophils # Seg Neutrophils # Man Lymphocytes # (Manual) Monocytes # (Manual) Eosinophils # (Manual) PT INR POC ABG pH POC ABG pCO2 POC ABG pO2 Sodium Potassium Chloride Carbon Dioxide 18 L BUN 61 H Creatinine 4.2 H Glucose 153 H POC Glucose 138 H 173 H Lactic Acid Calcium 7.5 L Phosphorus Magnesium AST ALT Alkaline Phosphatase Troponin T C-Reactive Protein Total Protein Albumin LDL Cholesterol Direct HDL Cholesterol Urine Creatinine Hepatitis C Antibody Crossmatch Crossmatch P[facility]armed 11/23/17 11/24/17 11/24/17 23:41 05:42 05:42 WBC 21.5 H RBC 2.48 L Hgb 6.2 L Hct 20.3 L D MCV 82 L MCH 25 L MCHC 31 L RDW 18.9 H Plt Count Lymph % (Auto) [facility] % (Auto) Eos % (Auto) Lymph # [facility] # Eos # Seg Neutrophils % Seg Neuts % (Manual) 94.0 H Lymphocytes % (Manual) 3.0 L Monocytes % (Manual) Eosinophils % (Manual) Nucleated RBC % Seg Neutrophils # Seg Neutrophils # Man 20.2 H Lymphocytes # (Manual) 0.6 L Monocytes # (Manual) Eosinophils # (Manual) PT INR POC ABG pH POC ABG pCO2 POC ABG pO2 Sodium 149 H Potassium 2.8 L* D Chloride 113.9 H Carbon Dioxide 19 L BUN 31 H Creatinine 2.3 H Glucose 103 H POC Glucose 133 H Lactic Acid Calcium 5.3 L* D Phosphorus Magnesium 1.30 L AST ALT Alkaline Phosphatase Troponin T C-Reactive Protein Total Protein Albumin LDL Cholesterol Direct HDL Cholesterol Urine Creatinine Hepatitis C Antibody Crossmatch Crossmatch P[place]armed 11/24/17 11/24/17 11/24/17 05:42 08:27 08:27 WBC RBC Hgb Hct MCV MCH MCHC RDW Plt Count Lymph % (Auto) [facility] % (Auto) Eos % (Auto) Lymph # [facility] # Eos # Seg Neutrophils % Seg Neuts % (Manual) Lymphocytes % (Manual) Monocytes % (Manual) Eosinophils % (Manual) Nucleated RBC % Seg Neutrophils # Seg Neutrophils # Man Lymphocytes # (Manual) Monocytes # (Manual) Eosinophils # (Manual) PT INR POC ABG pH POC ABG pCO2 POC ABG pO2 Sodium Potassium Chloride Carbon Dioxide BUN Creatinine Glucose POC Glucose Lactic Acid 5.40 H* 5.20 H* Calcium Phosphorus Magnesium AST ALT Alkaline Phosphatase Troponin T C-Reactive Protein Total Protein Albumin LDL Cholesterol Direct HDL Cholesterol Urine Creatinine Hepatitis C Antibody Crossmatch See Detail Crossmatch P[facility]armed 11/24/17 11/24/17 11/24/17 12:13 17:22 21:53 WBC 23.0 H RBC 3.32 L Hgb 8.8 L Hct 27.1 L D MCV 82 L MCH 26 L MCHC RDW 17.3 H Plt Count Lymph % (Auto) [facility] % (Auto) Eos % (Auto) Lymph # [facility] # Eos # Seg Neutrophils % Seg Neuts % (Manual) Lymphocytes % (Manual) Monocytes % (Manual) Eosinophils % (Manual) Nucleated RBC % Seg Neutrophils # Seg Neutrophils # Man Lymphocytes # (Manual) Monocytes # (Manual) Eosinophils # (Manual) PT INR POC ABG pH POC ABG pCO2 POC ABG pO2 Sodium Potassium Chloride Carbon Dioxide BUN Creatinine Glucose POC Glucose 138 H 180 H Lactic Acid Calcium Phosphorus Magnesium AST ALT Alkaline Phosphatase Troponin T C-Reactive Protein Total Protein Albumin LDL Cholesterol Direct HDL Cholesterol Urine Creatinine Hepatitis C Antibody Crossmatch Crossmatch [place] 11/24/17 11/24/17 11/25/17 21:53 23:28 04:19 WBC RBC Hgb Hct MCV MCH MCHC RDW Plt Count Lymph % (Auto) [facility] % (Auto) Eos % (Auto) Lymph # [facility] # Eos # Seg Neutrophils % Seg Neuts % (Manual) Lymphocytes % (Manual) Monocytes % (Manual) Eosinophils % (Manual) Nucleated RBC % Seg Neutrophils # Seg Neutrophils # Man Lymphocytes # (Manual) Monocytes # (Manual) Eosinophils # (Manual) PT INR POC ABG pH POC ABG pCO2 POC ABG pO2 Sodium Potassium Chloride 96.3 L Carbon Dioxide BUN 28 H 31 H Creatinine 2.3 H 2.6 H Glucose 125 H 101 H POC Glucose 111 H Lactic Acid Calcium 7.5 L D 7.4 L Phosphorus Magnesium AST 170 H ALT 179 H Alkaline Phosphatase 175 H Troponin T C-Reactive Protein Total Protein 5.5 L Albumin 1.8 L LDL Cholesterol Direct HDL Cholesterol Urine Creatinine Hepatitis C Antibody Crossmatch Crossmatch [facility] 11/25/17 11/25/17 11/26/17 04:19 04:19 06:29 WBC 22.5 H RBC 3.48 L Hgb 9.1 L Hct 28.3 L MCV 81 L MCH 26 L MCHC RDW 17.4 H Plt Count Lymph % (Auto) [facility] % (Auto) Eos % (Auto) Lymph # [facility] # Eos # Seg Neutrophils % Seg Neuts % (Manual) Lymphocytes % (Manual) Monocytes % (Manual) Eosinophils % (Manual) Nucleated RBC % Seg Neutrophils # Seg Neutrophils # Man Lymphocytes # (Manual) Monocytes # (Manual) Eosinophils # (Manual) PT 23.6 H INR 1.96 H POC ABG pH POC ABG pCO2 POC ABG pO2 Sodium Potassium Chloride Carbon Dioxide BUN 31 H Creatinine 2.6 H Glucose 101 H POC Glucose Lactic Acid Calcium 7.5 L Phosphorus Magnesium AST ALT Alkaline Phosphatase Troponin T C-Reactive Protein Total Protein Albumin LDL Cholesterol Direct HDL Cholesterol Urine Creatinine Hepatitis C Antibody Crossmatch Crossmatch [facility] 11/26/17 11/27/17 11/27/17 06:34 04:06 04:06 WBC 11.3 H RBC 3.13 L Hgb 8.4 L Hct 25.8 L MCV 82 L MCH 27 L MCHC RDW 17.7 H Plt Count Lymph % (Auto) 7.[address] [facility] % (Auto) Eos % (Auto) Lymph # 0.[address] [facility] # Eos # Seg Neutrophils % 83.7 H Seg Neuts % (Manual) Lymphocytes % (Manual) Monocytes % (Manual) Eosinophils % (Manual) Nucleated RBC % Seg Neutrophils # 9.5 H Seg Neutrophils # Man Lymphocytes # (Manual) Monocytes # (Manual) Eosinophils # (Manual) PT INR POC ABG pH POC ABG pCO2 POC ABG pO2 Sodium Potassium Chloride 97.9 L Carbon Dioxide BUN 43 H 29 H Creatinine 3.5 H 2.9 H Glucose POC Glucose Lactic Acid Calcium 7.5 L 8.1 L Phosphorus Magnesium AST ALT Alkaline Phosphatase Troponin T C-Reactive Protein Total Protein Albumin LDL Cholesterol Direct HDL Cholesterol Urine Creatinine Hepatitis C Antibody Crossmatch Crossmatch [facility] 0911/28/17 11/28/17 18:11 00:16 03:50 WBC RBC Hgb Hct MCV MCH MCHC RDW Plt Count Lymph % (Auto) [facility] % (Auto) Eos % (Auto) Lymph # [facility] # Eos # Seg Neutrophils % Seg Neuts % (Manual) Lymphocytes % (Manual) Monocytes % (Manual) Eosinophils % (Manual) Nucleated RBC % Seg Neutrophils # Seg Neutrophils # Man Lymphocytes # (Manual) Monocytes # (Manual) Eosinophils # (Manual) PT INR POC ABG pH POC ABG pCO2 POC ABG pO2 Sodium Potassium Chloride Carbon Dioxide BUN 39 H Creatinine 4.1 H Glucose 108 H POC Glucose 110 H 124 H Lactic Acid Calcium 7.9 L Phosphorus Magnesium AST ALT Alkaline Phosphatase Troponin T C-Reactive Protein Total Protein Albumin LDL Cholesterol Direct HDL Cholesterol Urine Creatinine Hepatitis C Antibody Crossmatch Crossmatch [facility] 11/28/17 11/28/17 11/28/17 05:03 11:36 17:42 WBC RBC Hgb Hct MCV MCH MCHC RDW Plt Count Lymph % (Auto) [facility] % (Auto) Eos % (Auto) Lymph # [facility] # Eos # Seg Neutrophils % Seg Neuts % (Manual) Lymphocytes % (Manual) Monocytes % (Manual) Eosinophils % (Manual) Nucleated RBC % Seg Neutrophils # Seg Neutrophils # Man Lymphocytes # (Manual) Monocytes # (Manual) Eosinophils # (Manual) PT INR POC ABG pH POC ABG pCO2 POC ABG pO2 Sodium Potassium Chloride Carbon Dioxide BUN Creatinine Glucose POC Glucose 134 H 114 H 119 H Lactic Acid Calcium Phosphorus Magnesium AST ALT Alkaline Phosphatase Troponin T C-Reactive Protein Total Protein Albumin LDL Cholesterol Direct HDL Cholesterol Urine Creatinine Hepatitis C Antibody Crossmatch Crossmatch [facility] 11/29/17 11/29/17 11/29/17 00:22 05:25 05:25 WBC 12.3 H RBC 3.34 L Hgb 8.6 L Hct 27.3 L MCV 82 L MCH 26 L MCHC RDW 18.5 H Plt Count Lymph % (Auto) 3.[address] [facility] % (Auto) 7.7 H Eos % (Auto) Lymph # 0.[address] [facility] # 1.0 H Eos # Seg Neutrophils % 86.5 H Seg Neuts % (Manual) Lymphocytes % (Manual) Monocytes % (Manual) Eosinophils % (Manual) Nucleated RBC % Seg Neutrophils # 10.7 H Seg Neutrophils # Man Lymphocytes # (Manual) Monocytes # (Manual) Eosinophils # (Manual) PT INR POC ABG pH POC ABG pCO2 POC ABG pO2 Sodium Potassium Chloride Carbon Dioxide BUN 29 H Creatinine 3.5 H Glucose 109 H POC Glucose 137 H Lactic Acid Calcium 7.8 L Phosphorus Magnesium AST ALT Alkaline Phosphatase Troponin T C-Reactive Protein Total Protein Albumin LDL Cholesterol Direct HDL Cholesterol Urine Creatinine Hepatitis C Antibody Crossmatch Crossmatch [facility] 11/29/17 11/30/17 11/30/17 05:26 00:26 04:17 WBC RBC Hgb Hct MCV MCH MCHC RDW Plt Count Lymph % (Auto) [facility] % (Auto) Eos % (Auto) Lymph # [facility] # Eos # Seg Neutrophils % Seg Neuts % (Manual) Lymphocytes % (Manual) Monocytes % (Manual) Eosinophils % (Manual) Nucleated RBC % Seg Neutrophils # Seg Neutrophils # Man Lymphocytes # (Manual) Monocytes # (Manual) Eosinophils # (Manual) PT INR POC ABG pH POC ABG pCO2 POC ABG pO2 Sodium Potassium Chloride Carbon Dioxide BUN 38 H Creatinine 4.3 H Glucose 109 H POC Glucose 129 H 152 H Lactic Acid Calcium 7.8 L Phosphorus Magnesium AST ALT Alkaline Phosphatase Troponin T C-Reactive Protein Total Protein Albumin LDL Cholesterol Direct HDL Cholesterol Urine Creatinine Hepatitis C Antibody Crossmatch Crossmatch [facility] 11/30/17 11/30/17 11/30/17 12:17 16:23 23:35 WBC RBC Hgb Hct MCV MCH MCHC RDW Plt Count Lymph % (Auto) [facility] % (Auto) Eos % (Auto) Lymph # [facility] # Eos # Seg Neutrophils % Seg Neuts % (Manual) Lymphocytes % (Manual) Monocytes % (Manual) Eosinophils % (Manual) Nucleated RBC % Seg Neutrophils # Seg Neutrophils # Man Lymphocytes # (Manual) Monocytes # (Manual) Eosinophils # (Manual) PT INR POC ABG pH POC ABG pCO2 POC ABG pO2 Sodium Potassium Chloride Carbon Dioxide BUN Creatinine Glucose POC Glucose 170 H 114 H 122 H Lactic Acid Calcium Phosphorus Magnesium AST ALT Alkaline Phosphatase Troponin T C-Reactive Protein Total Protein Albumin LDL Cholesterol Direct HDL Cholesterol Urine Creatinine Hepatitis C Antibody Crossmatch Crossmatch [facility] 12/01/17 12/01/17 12/01/17 04:09 04:09 12:17 WBC 14.1 H RBC 3.32 L Hgb 8.6 L Hct 27.0 L MCV 81 L MCH 26 L MCHC RDW 18.7 H Plt Count Lymph % (Auto) 5.[address] [facility] % (Auto) 9.7 H Eos % (Auto) Lymph # 0.[address] [facility] # 1.4 H Eos # Seg Neutrophils % 82.9 H Seg Neuts % (Manual) Lymphocytes % (Manual) Monocytes % (Manual) Eosinophils % (Manual) Nucleated RBC % Seg Neutrophils # 11.7 H Seg Neutrophils # Man Lymphocytes # (Manual) Monocytes # (Manual) Eosinophils # (Manual) PT INR POC ABG pH POC ABG pCO2 POC ABG pO2 Sodium Potassium 3.4 L Chloride Carbon Dioxide BUN 21 H Creatinine 3.0 H Glucose 108 H POC Glucose 126 H Lactic Acid Calcium 8.0 L Phosphorus Magnesium AST ALT Alkaline Phosphatase Troponin T C-Reactive Protein Total Protein Albumin LDL Cholesterol Direct HDL Cholesterol Urine Creatinine Hepatitis C Antibody Crossmatch Crossmatch [facility] 12/02/17 12/03/17 12/03/17 23:46 02:52 05:54 WBC 17.2 H RBC 3.21 L Hgb 8.5 L Hct 25.8 L MCV 80 L MCH 26 L MCHC RDW 18.4 H Plt Count 128 L Lymph % (Auto) [facility] % (Auto) Eos % (Auto) Lymph # [facility] # Eos # Seg Neutrophils % Seg Neuts % (Manual) Lymphocytes % (Manual) Monocytes % (Manual) Eosinophils % (Manual) Nucleated RBC % Seg Neutrophils # Seg Neutrophils # Man Lymphocytes # (Manual) Monocytes # (Manual) Eosinophils # (Manual) PT INR POC ABG pH POC ABG pCO2 POC ABG pO2 Sodium Potassium Chloride Carbon Dioxide BUN Creatinine Glucose POC Glucose 125 H 107 H Lactic Acid Calcium Phosphorus Magnesium AST ALT Alkaline Phosphatase Troponin T C-Reactive Protein Total Protein Albumin LDL Cholesterol Direct HDL Cholesterol Urine Creatinine Hepatitis C Antibody Crossmatch Crossmatch [facility] 12/03/17 12/03/17 12/04/17 12:05 Unknown 12:26 WBC RBC Hgb Hct MCV MCH MCHC RDW Plt Count Lymph % (Auto) [facility] % (Auto) Eos % (Auto) Lymph # [facility] # Eos # Seg Neutrophils % Seg Neuts % (Manual) Lymphocytes % (Manual) Monocytes % (Manual) Eosinophils % (Manual) Nucleated RBC % Seg Neutrophils # Seg Neutrophils # Man Lymphocytes # (Manual) Monocytes # (Manual) Eosinophils # (Manual) PT INR POC ABG pH POC ABG pCO2 POC ABG pO2 Sodium Potassium Chloride Carbon Dioxide BUN 21 H Creatinine 2.8 H Glucose 113 H POC Glucose 106 H 119 H Lactic Acid Calcium Phosphorus Magnesium AST ALT Alkaline Phosphatase Troponin T C-Reactive Protein Total Protein Albumin LDL Cholesterol Direct HDL Cholesterol Urine Creatinine Hepatitis C Antibody Crossmatch Crossmatch [facility] 12/04/17 12/05/17 12/05/17 17:57 00:52 04:05 WBC RBC 2.96 L Hgb 7.7 L Hct 24.2 L MCV 82 L MCH 26 L MCHC RDW 18.8 H Plt Count 105 L Lymph % (Auto) 10.[address] [facility] % (Auto) 12.1 H Eos % (Auto) 5.2 H Lymph # 1.[address] [facility] # 1.3 H Eos # 0.5 H Seg Neutrophils % 71.3 H Seg Neuts % (Manual) Lymphocytes % (Manual) Monocytes % (Manual) Eosinophils % (Manual) Nucleated RBC % Seg Neutrophils # Seg Neutrophils # Man Lymphocytes # (Manual) Monocytes # (Manual) Eosinophils # (Manual) PT INR POC ABG pH POC ABG pCO2 POC ABG pO2 Sodium Potassium Chloride Carbon Dioxide BUN Creatinine Glucose POC Glucose 140 H 117 H Lactic Acid Calcium Phosphorus Magnesium AST ALT Alkaline Phosphatase Troponin T C-Reactive Protein Total Protein Albumin LDL Cholesterol Direct HDL Cholesterol Urine Creatinine Hepatitis C Antibody Crossmatch Crossmatch [facility] 12/05/17 12/05/17 12/06/17 04:05 22:50 08:18 WBC RBC 2.80 L Hgb 7.4 L Hct 23.0 L MCV 82 L MCH 27 L MCHC RDW 19.5 H Plt Count 125 L Lymph % (Auto) [facility] % (Auto) Eos % (Auto) Lymph # [facility] # Eos # Seg Neutrophils % Seg Neuts % (Manual) Lymphocytes % (Manual) Monocytes % (Manual) Eosinophils % (Manual) Nucleated RBC % Seg Neutrophils # Seg Neutrophils # Man Lymphocytes # (Manual) Monocytes # (Manual) Eosinophils # (Manual) PT INR POC ABG pH POC ABG pCO2 POC ABG pO2 Sodium Potassium Chloride 107.4 H Carbon Dioxide BUN Creatinine 2.5 H Glucose POC Glucose 112 H Lactic Acid Calcium 8.3 L Phosphorus Magnesium AST ALT Alkaline Phosphatase Troponin T C-Reactive Protein Total Protein Albumin LDL Cholesterol Direct HDL Cholesterol Urine Creatinine Hepatitis C Antibody Crossmatch Crossmatch [facility] 12/06/17 12/06/17 12/06/17 08:18 12:01 23:58 WBC RBC Hgb Hct MCV MCH MCHC RDW Plt Count Lymph % (Auto) [facility] % (Auto) Eos % (Auto) Lymph # [facility] # Eos # Seg Neutrophils % Seg Neuts % (Manual) Lymphocytes % (Manual) Monocytes % (Manual) Eosinophils % (Manual) Nucleated RBC % Seg Neutrophils # Seg Neutrophils # Man Lymphocytes # (Manual) Monocytes # (Manual) Eosinophils # (Manual) PT INR POC ABG pH POC ABG pCO2 POC ABG pO2 Sodium Potassium Chloride 108.4 H Carbon Dioxide BUN 28 H Creatinine 3.7 H Glucose 103 H POC Glucose 106 H 108 H Lactic Acid Calcium 8.0 L Phosphorus Magnesium AST ALT Alkaline Phosphatase Troponin T C-Reactive Protein Total Protein Albumin LDL Cholesterol Direct HDL Cholesterol Urine Creatinine Hepatitis C Antibody Crossmatch Crossmatch [facility] 12/07/17 12/07/17 12/07/17 05:47 05:47 18:03 WBC RBC 2.79 L Hgb 7.3 L Hct 22.8 L MCV 82 L MCH 26 L MCHC RDW 19.1 H Plt Count 101 L Lymph % (Auto) [facility] % (Auto) Eos % (Auto) Lymph # [facility] # Eos # Seg Neutrophils % Seg Neuts % (Manual) 72.0 H Lymphocytes % (Manual) 13.0 L Monocytes % (Manual) Eosinophils % (Manual) 9.0 H Nucleated RBC % Seg Neutrophils # Seg Neutrophils # Man Lymphocytes # (Manual) 1.1 L Monocytes # (Manual) Eosinophils # (Manual) 0.8 H PT INR POC ABG pH POC ABG pCO2 POC ABG pO2 Sodium 146 H Potassium Chloride 109.8 H Carbon Dioxide BUN 36 H Creatinine 4.0 H Glucose POC Glucose 143 H Lactic Acid Calcium 8.0 L Phosphorus Magnesium AST ALT Alkaline Phosphatase Troponin T C-Reactive Protein Total Protein Albumin LDL Cholesterol Direct HDL Cholesterol Urine Creatinine Hepatitis C Antibody Crossmatch Crossmatch [facility] 12/07/17 12/08/17 12/08/17 23:33 05:10 05:10 WBC RBC 2.91 L Hgb 7.5 L Hct 24.4 L MCV MCH 26 L MCHC 31 L RDW 19.7 H Plt Count 109 L Lymph % (Auto) [facility] % (Auto) Eos % (Auto) Lymph # [facility] # Eos # Seg Neutrophils % Seg Neuts % (Manual) Lymphocytes % (Manual) 11.0 L Monocytes % (Manual) Eosinophils % (Manual) 12.0 H Nucleated RBC % Seg Neutrophils # Seg Neutrophils # Man Lymphocytes # (Manual) 0.7 L Monocytes # (Manual) Eosinophils # (Manual) 0.7 H PT INR POC ABG pH POC ABG pCO2 POC ABG pO2 Sodium 147 H Potassium Chloride 110.4 H Carbon Dioxide BUN Creatinine 2.8 H Glucose POC Glucose 107 H Lactic Acid Calcium 7.8 L Phosphorus Magnesium AST ALT Alkaline Phosphatase Troponin T C-Reactive Protein Total Protein Albumin LDL Cholesterol Direct HDL Cholesterol Urine Creatinine Hepatitis C Antibody Crossmatch Crossmatch [facility] 12/09/17 12/09/17 12/09/17 04:18 04:18 12:16 WBC RBC Hgb 7.2 L Hct 23.2 L MCV MCH MCHC RDW Plt Count Lymph % (Auto) [facility] % (Auto) Eos % (Auto) Lymph # [facility] # Eos # Seg Neutrophils % Seg Neuts % (Manual) Lymphocytes % (Manual) Monocytes % (Manual) Eosinophils % (Manual) Nucleated RBC % Seg Neutrophils # Seg Neutrophils # Man Lymphocytes # (Manual) Monocytes # (Manual) Eosinophils # (Manual) PT INR POC ABG pH POC ABG pCO2 POC ABG pO2 Sodium 150 H Potassium Chloride 114.5 H Carbon Dioxide BUN 25 H Creatinine 3.3 H Glucose POC Glucose 142 H Lactic Acid Calcium 7.7 L Phosphorus Magnesium AST ALT Alkaline Phosphatase Troponin T C-Reactive Protein Total Protein Albumin LDL Cholesterol Direct HDL Cholesterol Urine Creatinine Hepatitis C Antibody Crossmatch Crossmatch [facility] 12/10/17 12/10/17 12/11/17 05:14 05:14 12:05 WBC RBC 2.81 L Hgb 7.4 L Hct 23.9 L MCV MCH 26 L MCHC 31 L RDW 19.1 H Plt Count 128 L Lymph % (Auto) [facility] % (Auto) Eos % (Auto) Lymph # [facility] # Eos # Seg Neutrophils % Seg Neuts % (Manual) 78.0 H Lymphocytes % (Manual) 8.0 L Monocytes % (Manual) Eosinophils % (Manual) 5.0 H Nucleated RBC % Seg Neutrophils # Seg Neutrophils # Man Lymphocytes # (Manual) 0.6 L Monocytes # (Manual) Eosinophils # (Manual) PT INR POC ABG pH POC ABG pCO2 POC ABG pO2 Sodium Potassium Chloride Carbon Dioxide BUN Creatinine 2.2 H Glucose POC Glucose 127 H Lactic Acid Calcium 7.8 L Phosphorus Magnesium AST ALT Alkaline Phosphatase Troponin T C-Reactive Protein Total Protein Albumin LDL Cholesterol Direct HDL Cholesterol Urine Creatinine Hepatitis C Antibody Crossmatch Crossmatch [facility] 12/11/17 12/11/17 12/11/17 15:26 18:36 23:40 WBC RBC Hgb Hct MCV MCH MCHC RDW Plt Count Lymph % (Auto) [facility] % (Auto) Eos % (Auto) Lymph # [facility] # Eos # Seg Neutrophils % Seg Neuts % (Manual) Lymphocytes % (Manual) Monocytes % (Manual) Eosinophils % (Manual) Nucleated RBC % Seg Neutrophils # Seg Neutrophils # Man Lymphocytes # (Manual) Monocytes # (Manual) Eosinophils # (Manual) PT INR POC ABG pH POC ABG pCO2 POC ABG pO2 Sodium Potassium 3.3 L Chloride Carbon Dioxide BUN Creatinine 1.6 H Glucose POC Glucose 106 H 110 H Lactic Acid Calcium 7.6 L Phosphorus Magnesium AST ALT Alkaline Phosphatase Troponin T C-Reactive Protein Total Protein Albumin LDL Cholesterol Direct HDL Cholesterol Urine Creatinine Hepatitis C Antibody Crossmatch Crossmatch [facility] 12/12/17 12/12/17 12/12/17 05:10 05:41 05:41 WBC RBC 3.17 L Hgb 8.1 L Hct 25.7 L MCV 81 L MCH 25 L MCHC 31 L RDW 19.2 H Plt Count Lymph % (Auto) [facility] % (Auto) Eos % (Auto) Lymph # [facility] # Eos # Seg Neutrophils % Seg Neuts % (Manual) 74.0 H Lymphocytes % (Manual) 6.0 L Monocytes % (Manual) Eosinophils % (Manual) 9.0 H Nucleated RBC % Seg Neutrophils # Seg Neutrophils # Man Lymphocytes # (Manual) 0.6 L Monocytes # (Manual) Eosinophils # (Manual) 0.9 H PT INR POC ABG pH POC ABG pCO2 POC ABG pO2 Sodium Potassium 3.5 L Chloride Carbon Dioxide BUN Creatinine 2.3 H Glucose 113 H POC Glucose 112 H Lactic Acid Calcium 7.5 L Phosphorus Magnesium AST ALT Alkaline Phosphatase Troponin T C-Reactive Protein Total Protein Albumin LDL Cholesterol Direct HDL Cholesterol Urine Creatinine Hepatitis C Antibody Crossmatch Crossmatch [facility] 12/13/17 12/13/17 12/13/17 06:14 12:00 17:37 WBC RBC Hgb Hct MCV MCH MCHC RDW Plt Count Lymph % (Auto) [facility] % (Auto) Eos % (Auto) Lymph # [facility] # Eos # Seg Neutrophils % Seg Neuts % (Manual) Lymphocytes % (Manual) Monocytes % (Manual) Eosinophils % (Manual) Nucleated RBC % Seg Neutrophils # Seg Neutrophils # Man Lymphocytes # (Manual) Monocytes # (Manual) Eosinophils # (Manual) PT INR POC ABG pH POC ABG pCO2 POC ABG pO2 Sodium Potassium Chloride Carbon Dioxide BUN Creatinine Glucose POC Glucose 130 H 133 H 136 H Lactic Acid Calcium Phosphorus Magnesium AST ALT Alkaline Phosphatase Troponin T C-Reactive Protein Total Protein Albumin LDL Cholesterol Direct HDL Cholesterol Urine Creatinine Hepatitis C Antibody Crossmatch Crossmatch [facility] 12/13/17 12/14/17 12/14/17 23:39 05:11 05:11 WBC RBC Hgb Hct MCV MCH MCHC RDW Plt Count Lymph % (Auto) [facility] % (Auto) Eos % (Auto) Lymph # [facility] # Eos # Seg Neutrophils % Seg Neuts % (Manual) Lymphocytes % (Manual) Monocytes % (Manual) Eosinophils % (Manual) Nucleated RBC % Seg Neutrophils # Seg Neutrophils # Man Lymphocytes # (Manual) Monocytes # (Manual) Eosinophils # (Manual) PT 15.4 H INR 1.17 H POC ABG pH POC ABG pCO2 POC ABG pO2 Sodium Potassium Chloride Carbon Dioxide 21 L BUN 26 H Creatinine 2.9 H Glucose POC Glucose 108 H Lactic Acid Calcium 7.2 L Phosphorus Magnesium AST ALT Alkaline Phosphatase Troponin T C-Reactive Protein Total Protein Albumin LDL Cholesterol Direct HDL Cholesterol Urine Creatinine Hepatitis C Antibody Crossmatch Crossmatch [facility] 12/14/17 12/14/17 12/14/17 12:00 16:01 18:24 WBC 12.9 H RBC 3.25 L Hgb 8.2 L Hct 26.2 L MCV 81 L MCH 25 L MCHC 31 L RDW 19.2 H Plt Count Lymph % (Auto) [facility] % (Auto) Eos % (Auto) Lymph # [facility] # Eos # Seg Neutrophils % Seg Neuts % (Manual) Lymphocytes % (Manual) Monocytes % (Manual) Eosinophils % (Manual) Nucleated RBC % Seg Neutrophils # Seg Neutrophils # Man Lymphocytes # (Manual) Monocytes # (Manual) Eosinophils # (Manual) PT INR POC ABG pH POC ABG pCO2 POC ABG pO2 Sodium Potassium Chloride Carbon Dioxide BUN Creatinine Glucose POC Glucose 138 H 120 H Lactic Acid Calcium Phosphorus Magnesium AST ALT Alkaline Phosphatase Troponin T C-Reactive Protein Total Protein Albumin LDL Cholesterol Direct HDL Cholesterol Urine Creatinine Hepatitis C Antibody Crossmatch Crossmatch [facility] 12/14/17 12/14/17 12/15/17 23:29 Unknown 05:57 WBC 12.5 H RBC 2.48 L Hgb 6.0 L Hct 24.4 L MCV 79 L MCH 24 L MCHC 30 L RDW 18.5 H Plt Count 131 L Lymph % (Auto) 7.[address] [facility] % (Auto) 8.9 H Eos % (Auto) 8.3 H Lymph # 0.[address] [facility] # 1.1 H Eos # 1.0 H Seg Neutrophils % 75.2 H Seg Neuts % (Manual) Lymphocytes % (Manual) Monocytes % (Manual) Eosinophils % (Manual) Nucleated RBC % Seg Neutrophils # 9.4 H Seg Neutrophils # Man Lymphocytes # (Manual) Monocytes # (Manual) Eosinophils # (Manual) PT INR POC ABG pH POC ABG pCO2 POC ABG pO2 Sodium Potassium Chloride Carbon Dioxide BUN Creatinine Glucose POC Glucose 110 H 113 H Lactic Acid Calcium Phosphorus Magnesium AST ALT Alkaline Phosphatase Troponin T C-Reactive Protein Total Protein Albumin LDL Cholesterol Direct HDL Cholesterol Urine Creatinine Hepatitis C Antibody Crossmatch Crossmatch [facility] 12/15/17 12/15/17 12/15/17 11:50 13:37 17:58 WBC RBC Hgb 7.3 L Hct 23.3 L MCV MCH MCHC RDW Plt Count Lymph % (Auto) [facility] % (Auto) Eos % (Auto) Lymph # [facility] # Eos # Seg Neutrophils % Seg Neuts % (Manual) Lymphocytes % (Manual) Monocytes % (Manual) Eosinophils % (Manual) Nucleated RBC % Seg Neutrophils # Seg Neutrophils # Man Lymphocytes # (Manual) Monocytes # (Manual) Eosinophils # (Manual) PT INR POC ABG pH POC ABG pCO2 POC ABG pO2 Sodium Potassium Chloride Carbon Dioxide BUN Creatinine Glucose POC Glucose 106 H 110 H Lactic Acid Calcium Phosphorus Magnesium AST ALT Alkaline Phosphatase Troponin T C-Reactive Protein Total Protein Albumin LDL Cholesterol Direct HDL Cholesterol Urine Creatinine Hepatitis C Antibody Crossmatch Crossmatch [facility] 12/15/17 12/16/17 12/16/17 23:30 04:55 05:14 WBC 13.2 H RBC 2.79 L Hgb 6.9 L Hct 22.2 L MCV 80 L MCH 25 L MCHC 31 L RDW 18.8 H Plt Count Lymph % (Auto) 7.[address] [facility] % (Auto) 11.0 H Eos % (Auto) 8.2 H Lymph # 1.[address] [facility] # 1.4 H Eos # 1.1 H Seg Neutrophils % 72.9 H Seg Neuts % (Manual) Lymphocytes % (Manual) Monocytes % (Manual) Eosinophils % (Manual) Nucleated RBC % Seg Neutrophils # 9.6 H Seg Neutrophils # Man Lymphocytes # (Manual) Monocytes # (Manual) Eosinophils # (Manual) PT INR POC ABG pH POC ABG pCO2 POC ABG pO2 Sodium 131 L D Potassium 2.8 L* D Chloride 93.2 L Carbon Dioxide BUN 24 H Creatinine 2.0 H Glucose POC Glucose 111 H Lactic Acid Calcium 7.7 L Phosphorus Magnesium AST ALT Alkaline Phosphatase Troponin T C-Reactive Protein Total Protein Albumin LDL Cholesterol Direct HDL Cholesterol Urine Creatinine Hepatitis C Antibody Crossmatch Crossmatch [facility] 12/16/17 12/16/17 12/16/17 13:01 17:32 23:39 WBC RBC Hgb Hct MCV MCH MCHC RDW Plt Count Lymph % (Auto) [facility] % (Auto) Eos % (Auto) Lymph # [facility] # Eos # Seg Neutrophils % Seg Neuts % (Manual) Lymphocytes % (Manual) Monocytes % (Manual) Eosinophils % (Manual) Nucleated RBC % Seg Neutrophils # Seg Neutrophils # Man Lymphocytes # (Manual) Monocytes # (Manual) Eosinophils # (Manual) PT INR POC ABG pH POC ABG pCO2 POC ABG pO2 Sodium Potassium Chloride Carbon Dioxide BUN Creatinine Glucose POC Glucose 121 H 107 H Lactic Acid Calcium Phosphorus Magnesium AST ALT Alkaline Phosphatase Troponin T C-Reactive Protein Total Protein Albumin LDL Cholesterol Direct HDL Cholesterol Urine Creatinine Hepatitis C Antibody Crossmatch Crossmatch [facility] See Detail 12/17/17 12/17/17 12/17/17 05:08 05:08 12:03 WBC 12.9 H RBC 2.88 L Hgb 7.2 L Hct 22.6 L MCV 78 L MCH 25 L MCHC RDW 18.3 H Plt Count Lymph % (Auto) 8.[address] [facility] % (Auto) 8.6 H Eos % (Auto) Lymph # 1.[address] [facility] # 1.1 H Eos # Seg Neutrophils % 79.3 H Seg Neuts % (Manual) Lymphocytes % (Manual) Monocytes % (Manual) Eosinophils % (Manual) Nucleated RBC % Seg Neutrophils # 10.2 H Seg Neutrophils # Man Lymphocytes # (Manual) Monocytes # (Manual) Eosinophils # (Manual) PT INR POC ABG pH POC ABG pCO2 POC ABG pO2 Sodium Potassium 3.4 L D Chloride Carbon Dioxide BUN Creatinine Glucose 104 H POC Glucose 109 H Lactic Acid Calcium 7.6 L Phosphorus Magnesium 1.30 L AST ALT Alkaline Phosphatase 177 H Troponin T C-Reactive Protein Total Protein Albumin 2.0 L LDL Cholesterol Direct HDL Cholesterol Urine Creatinine Hepatitis C Antibody Crossmatch Crossmatch [facility] 12/17/17 12/18/17 12/18/17 23:40 00:50 00:50 WBC 22.6 H RBC 2.76 L Hgb 6.7 L Hct 21.6 L MCV 78 L MCH 24 L MCHC 31 L RDW 18.4 H Plt Count Lymph % (Auto) [facility] % (Auto) Eos % (Auto) Lymph # [facility] # Eos # Seg Neutrophils % Seg Neuts % (Manual) Lymphocytes % (Manual) Monocytes % (Manual) Eosinophils % (Manual) Nucleated RBC % Seg Neutrophils # Seg Neutrophils # Man Lymphocytes # (Manual) Monocytes # (Manual) Eosinophils # (Manual) PT INR POC ABG pH POC ABG pCO2 POC ABG pO2 Sodium Potassium Chloride Carbon Dioxide BUN 22 H Creatinine 1.6 H Glucose 113 H POC Glucose 120 H Lactic Acid Calcium 7.8 L Phosphorus Magnesium 1.50 L AST ALT Alkaline Phosphatase Troponin T C-Reactive Protein Total Protein Albumin LDL Cholesterol Direct HDL Cholesterol Urine Creatinine Hepatitis C Antibody Crossmatch Crossmatch [facility] 12/18/17 12/18/17 12/18/17 05:34 12:00 18:07 WBC RBC Hgb Hct MCV MCH MCHC RDW Plt Count Lymph % (Auto) [facility] % (Auto) Eos % (Auto) Lymph # [facility] # Eos # Seg Neutrophils % Seg Neuts % (Manual) Lymphocytes % (Manual) Monocytes % (Manual) Eosinophils % (Manual) Nucleated RBC % Seg Neutrophils # Seg Neutrophils # Man Lymphocytes # (Manual) Monocytes # (Manual) Eosinophils # (Manual) PT INR POC ABG pH POC ABG pCO2 POC ABG pO2 Sodium Potassium Chloride Carbon Dioxide BUN Creatinine Glucose POC Glucose 132 H 136 H 122 H Lactic Acid Calcium Phosphorus Magnesium AST ALT Alkaline Phosphatase Troponin T C-Reactive Protein Total Protein Albumin LDL Cholesterol Direct HDL Cholesterol Urine Creatinine Hepatitis C Antibody Crossmatch Crossmatch [facility] 12/19/17 12/19/17 12/19/17 00:24 00:24 05:17 WBC 15.4 H RBC 2.41 L Hgb 6.1 L Hct 19.0 L* MCV 79 L MCH 25 L MCHC RDW 18.5 H Plt Count Lymph % (Auto) [facility] % (Auto) Eos % (Auto) Lymph # [facility] # Eos # Seg Neutrophils % Seg Neuts % (Manual) Lymphocytes % (Manual) Monocytes % (Manual) Eosinophils % (Manual) Nucleated RBC % Seg Neutrophils # Seg Neutrophils # Man Lymphocytes # (Manual) Monocytes # (Manual) Eosinophils # (Manual) PT INR POC ABG pH POC ABG pCO2 POC ABG pO2 Sodium Potassium 3.2 L Chloride Carbon Dioxide BUN Creatinine Glucose 117 H POC Glucose 132 H Lactic Acid Calcium 8.2 L Phosphorus Magnesium 1.50 L AST ALT Alkaline Phosphatase Troponin T C-Reactive Protein Total Protein Albumin LDL Cholesterol Direct HDL Cholesterol Urine Creatinine Hepatitis C Antibody Crossmatch Crossmatch [facility] 12/19/17 12/19/17 12/19/17 09:00 09:00 18:01 WBC 12.4 H RBC 2.86 L Hgb 7.2 L Hct 22.6 L MCV 79 L MCH 25 L MCHC RDW 17.2 H Plt Count Lymph % (Auto) 6.[address] % (Auto) 12.6 H Eos % (Auto) Lymph # 0.[address] # 1.6 H Eos # Seg Neutrophils % 80.1 H Seg Neuts % (Manual) Lymphocytes % (Manual) Monocytes % (Manual) Eosinophils % (Manual) Nucleated RBC % Seg Neutrophils # 10.0 H Seg Neutrophils # Man Lymphocytes # (Manual) Monocytes # (Manual) Eosinophils # (Manual) PT INR POC ABG pH POC ABG pCO2 POC ABG pO2 Sodium Potassium 3.1 L Chloride Carbon Dioxide BUN 22 H Creatinine Glucose 113 H POC Glucose 117 H Lactic Acid Calcium 8.3 L Phosphorus Magnesium AST 54 H ALT Alkaline Phosphatase 204 H Troponin T C-Reactive Protein Total Protein 5.8 L Albumin 2.0 L LDL Cholesterol Direct HDL Cholesterol Urine Creatinine Hepatitis C Antibody Crossmatch Crossmatch [facility] 12/19/17 12/20/17 12/20/17 23:49 05:53 19:00 WBC RBC 3.03 L Hgb 7.7 L Hct 23.7 L MCV 78 L MCH 25 L MCHC RDW 17.2 H Plt Count Lymph % (Auto) [facility] % (Auto) Eos % (Auto) Lymph # [facility] # Eos # Seg Neutrophils % Seg Neuts % (Manual) 74.0 H Lymphocytes % (Manual) 6.0 L Monocytes % (Manual) 17.0 H Eosinophils % (Manual) Nucleated RBC % Seg Neutrophils # Seg Neutrophils # Man Lymphocytes # (Manual) 0.5 L Monocytes # (Manual) 1.5 H Eosinophils # (Manual) PT INR POC ABG pH POC ABG pCO2 POC ABG pO2 Sodium Potassium Chloride Carbon Dioxide BUN Creatinine Glucose POC Glucose 125 H 124 H Lactic Acid Calcium Phosphorus Magnesium AST ALT Alkaline Phosphatase Troponin T C-Reactive Protein Total Protein Albumin LDL Cholesterol Direct HDL Cholesterol Urine Creatinine Hepatitis C Antibody Crossmatch Crossmatch [facility] 12/20/17 12/21/17 12/22/17 19:00 23:54 05:07 WBC RBC Hgb Hct MCV MCH MCHC RDW Plt Count Lymph % (Auto) [facility] % (Auto) Eos % (Auto) Lymph # [facility] # Eos # Seg Neutrophils % Seg Neuts % (Manual) Lymphocytes % (Manual) Monocytes % (Manual) Eosinophils % (Manual) Nucleated RBC % Seg Neutrophils # Seg Neutrophils # Man Lymphocytes # (Manual) Monocytes # (Manual) Eosinophils # (Manual) PT INR POC ABG pH POC ABG pCO2 POC ABG pO2 Sodium Potassium 3.3 L 2.9 L* Chloride Carbon Dioxide BUN 37 H 43 H Creatinine Glucose 114 H POC Glucose 109 H Lactic Acid Calcium 8.3 L 7.8 L Phosphorus 1.60 L Magnesium 1.50 L AST ALT Alkaline Phosphatase Troponin T C-Reactive Protein Total Protein Albumin LDL Cholesterol Direct HDL Cholesterol Urine Creatinine Hepatitis C Antibody Crossmatch Crossmatch [facility] 12/22/17 12/22/17 12/22/17 05:07 05:07 06:02 WBC 4.1 L RBC 3.09 L Hgb 7.7 L Hct 24.3 L MCV 79 L MCH 25 L MCHC RDW 17.8 H Plt Count Lymph % (Auto) [facility] % (Auto) Eos % (Auto) Lymph # [facility] # Eos # Seg Neutrophils % Seg Neuts % (Manual) Lymphocytes % (Manual) Monocytes % (Manual) Eosinophils % (Manual) Nucleated RBC % Seg Neutrophils # Seg Neutrophils # Man Lymphocytes # (Manual) Monocytes # (Manual) Eosinophils # (Manual) PT INR POC ABG pH POC ABG pCO2 POC ABG pO2 Sodium Potassium Chloride Carbon Dioxide BUN Creatinine Glucose POC Glucose 107 H Lactic Acid Calcium Phosphorus Magnesium 1.60 L AST ALT Alkaline Phosphatase Troponin T C-Reactive Protein Total Protein Albumin LDL Cholesterol Direct HDL Cholesterol Urine Creatinine Hepatitis C Antibody Crossmatch Crossmatch [facility] 12/22/17 12/22/17 12/22/17 10:50 12:02 17:32 WBC RBC Hgb Hct MCV MCH MCHC RDW Plt Count Lymph % (Auto) [facility] % (Auto) Eos % (Auto) Lymph # [facility] # Eos # Seg Neutrophils % Seg Neuts % (Manual) Lymphocytes % (Manual) Monocytes % (Manual) Eosinophils % (Manual) Nucleated RBC % Seg Neutrophils # Seg Neutrophils # Man Lymphocytes # (Manual) Monocytes # (Manual) Eosinophils # (Manual) PT INR POC ABG pH POC ABG pCO2 POC ABG pO2 Sodium Potassium Chloride Carbon Dioxide BUN Creatinine Glucose POC Glucose 129 H 111 H Lactic Acid Calcium Phosphorus Magnesium AST ALT Alkaline Phosphatase Troponin T C-Reactive Protein Total Protein Albumin LDL Cholesterol Direct HDL Cholesterol Urine Creatinine 55.8 H Hepatitis C Antibody Crossmatch Crossmatch [facility] 12/22/17 12/22/17 12/23/17 19:03 23:57 05:55 WBC RBC Hgb Hct MCV MCH MCHC RDW Plt Count Lymph % (Auto) [facility] % (Auto) Eos % (Auto) Lymph # [facility] # Eos # Seg Neutrophils % Seg Neuts % (Manual) Lymphocytes % (Manual) Monocytes % (Manual) Eosinophils % (Manual) Nucleated RBC % Seg Neutrophils # Seg Neutrophils # Man Lymphocytes # (Manual) Monocytes # (Manual) Eosinophils # (Manual) PT INR POC ABG pH POC ABG pCO2 POC ABG pO2 Sodium Potassium 3.4 L 2.9 L* Chloride Carbon Dioxide BUN 40 H Creatinine Glucose 107 H POC Glucose 128 H Lactic Acid Calcium 7.9 L Phosphorus Magnesium AST ALT Alkaline Phosphatase Troponin T C-Reactive Protein Total Protein Albumin LDL Cholesterol Direct HDL Cholesterol Urine Creatinine Hepatitis C Antibody Crossmatch Crossmatch [facility] 12/23/17 12/23/17 12/23/17 05:55 05:55 11:59 WBC 3.8 L RBC 3.10 L Hgb 7.7 L Hct 25.5 L MCV 82 L MCH 25 L MCHC 30 L RDW 17.9 H Plt Count Lymph % (Auto) [facility] % (Auto) Eos % (Auto) Lymph # [facility] # Eos # Seg Neutrophils % Seg Neuts % (Manual) Lymphocytes % (Manual) Monocytes % (Manual) Eosinophils % (Manual) Nucleated RBC % Seg Neutrophils # Seg Neutrophils # Man Lymphocytes # (Manual) Monocytes # (Manual) Eosinophils # (Manual) PT INR POC ABG pH POC ABG pCO2 POC ABG pO2 Sodium Potassium Chloride Carbon Dioxide BUN Creatinine Glucose POC Glucose 115 H Lactic Acid Calcium Phosphorus Magnesium 1.60 L AST ALT Alkaline Phosphatase Troponin T C-Reactive Protein Total Protein Albumin LDL Cholesterol Direct HDL Cholesterol Urine Creatinine Hepatitis C Antibody Crossmatch Crossmatch [facility] 12/23/17 12/24/17 12/24/17 22:48 00:29 03:17 WBC RBC Hgb Hct MCV MCH MCHC RDW Plt Count Lymph % (Auto) [facility] % (Auto) Eos % (Auto) Lymph # [facility] # Eos # Seg Neutrophils % Seg Neuts % (Manual) Lymphocytes % (Manual) Monocytes % (Manual) Eosinophils % (Manual) Nucleated RBC % Seg Neutrophils # Seg Neutrophils # Man Lymphocytes # (Manual) Monocytes # (Manual) Eosinophils # (Manual) PT INR POC ABG pH POC ABG pCO2 POC ABG pO2 Sodium 146 H Potassium 2.9 L* 3.4 L Chloride Carbon Dioxide BUN 36 H Creatinine 0.7 L Glucose POC Glucose 111 H Lactic Acid Calcium 7.5 L Phosphorus Magnesium 1.60 L AST 76 H ALT 59 H Alkaline Phosphatase 294 H Troponin T C-Reactive Protein Total Protein 5.8 L Albumin 2.2 L LDL Cholesterol Direct HDL Cholesterol Urine Creatinine Hepatitis C Antibody Crossmatch Crossmatch [facility] 12/24/17 12/24/17 12/24/17 03:17 05:14 17:05 WBC RBC 3.03 L Hgb 7.6 L Hct 23.7 L MCV 78 L MCH 25 L MCHC RDW 17.8 H Plt Count Lymph % (Auto) [facility] % (Auto) Eos % (Auto) Lymph # [facility] # Eos # Seg Neutrophils % Seg Neuts % (Manual) Lymphocytes % (Manual) Monocytes % (Manual) Eosinophils % (Manual) Nucleated RBC % Seg Neutrophils # Seg Neutrophils # Man Lymphocytes # (Manual) Monocytes # (Manual) Eosinophils # (Manual) PT INR POC ABG pH POC ABG pCO2 POC ABG pO2 Sodium Potassium Chloride Carbon Dioxide BUN Creatinine Glucose POC Glucose 127 H 132 H Lactic Acid Calcium Phosphorus Magnesium AST ALT Alkaline Phosphatase Troponin T C-Reactive Protein Total Protein Albumin LDL Cholesterol Direct HDL Cholesterol Urine Creatinine Hepatitis C Antibody Crossmatch Crossmatch [facility] 12/25/17 12/25/17 12/25/17 00:03 04:34 06:25 WBC RBC Hgb Hct MCV MCH MCHC RDW Plt Count Lymph % (Auto) [facility] % (Auto) Eos % (Auto) Lymph # [facility] # Eos # Seg Neutrophils % Seg Neuts % (Manual) Lymphocytes % (Manual) Monocytes % (Manual) Eosinophils % (Manual) Nucleated RBC % Seg Neutrophils # Seg Neutrophils # Man Lymphocytes # (Manual) Monocytes # (Manual) Eosinophils # (Manual) PT INR POC ABG pH POC ABG pCO2 POC ABG pO2 Sodium Potassium Chloride Carbon Dioxide BUN 30 H Creatinine 0.6 L Glucose 114 H POC Glucose 128 H 136 H Lactic Acid Calcium 7.5 L Phosphorus Magnesium AST 84 H ALT 82 H Alkaline Phosphatase 322 H Troponin T C-Reactive Protein Total Protein 6.0 L Albumin 2.3 L LDL Cholesterol Direct HDL Cholesterol Urine Creatinine Hepatitis C Antibody Crossmatch Crossmatch [facility] 12/25/17 12:02 WBC RBC Hgb Hct MCV MCH MCHC RDW Plt Count Lymph % (Auto) [facility] % (Auto) Eos % (Auto) Lymph # [facility] # Eos # Seg Neutrophils % Seg Neuts % (Manual) Lymphocytes % (Manual) Monocytes % (Manual) Eosinophils % (Manual) Nucleated RBC % Seg Neutrophils # Seg Neutrophils # Man Lymphocytes # (Manual) Monocytes # (Manual) Eosinophils # (Manual) PT INR POC ABG pH POC ABG pCO2 POC ABG pO2 Sodium Potassium Chloride Carbon Dioxide BUN Creatinine Glucose POC Glucose 158 H Lactic Acid Calcium Phosphorus Magnesium AST ALT Alkaline Phosphatase Troponin T C-Reactive Protein Total Protein Albumin LDL Cholesterol Direct HDL Cholesterol Urine Creatinine Hepatitis C Antibody Crossmatch Crossmatch [facility] Chest x-ray: report reviewed, image reviewed
--- NOTE | 2017-12-25 14:06 | Progress Note ---
Assessment and Plan - Patient Problems (1) Gastrostomy malfunction Current Visit: Yes Status: Acute Plan to address problem: Pt is stable. After reviewing the records, discussing the case with multiple attendings, and seeing the patient, it is clear that we do not have an acute perforation. Most likely, the PEG tube started to migrate out of position prior to 11/18 as evidenced by no PEG button seen on EGD and no obvious hole in the stomach. As the contrast is restricted to certain areas in the abdomen, the fluid is loculated. The "ascites" may be tube feeds and/or reactionary fluid. Regardless, patient is not showing signs of obvious peritonitis. In this case, it may be prudent to try placing a few drains in the abdomen to remove that largest collections. I have already discussed this case with Dr. Moreira who agreed to review the case and see if that was possible. The alternative would be to take the patient for an ex-lap and washout the abdomen. I'm concerned that there may be a lot of inflammatory changes in the abdomen which would put him at risk for bowel injuries from the procedure. Therefore, this will be our back-up plan if the drains do not resolve the problem. As for nutritional access , for now, I would recommend an NGT. I doubt he has an active leak, so there is no need to test the stomach prior to using it. I have explained this plan in detail to the daughter (Jannette) and the attendings from ICU, GI, and hospitalist service. All were in agreement. - 11/25/17 Initial Consult Pt appears stable. s/p dx lap and washout - 12/03 POD#22. Pt stable. Increased drainage from the ODALYS drain. It may be that the previous firm inflamed, infected tissue is starting to liquefy and come out the ODALYS drain. Will leave until output slows down and clears up. Would leave surgical incisions open to air. Will plan to remove kamar next week. Please call with questions. Will follow along peripherally. Time=10min Subjective Date of service: 12/25/17 Patient Reports: Positive: other (no clinical changes per staff) Objective Vital Signs - 12hr 12/25/17 12/25/17 12/25/17 03:00 04:00 04:36 Temperature 99.4 F Pulse Rate 102 H 99 H Respiratory 25 H 24 Rate Blood Pressure 164/97 131/85 O2 Sat by Pulse 95 93 Oximetry O2 Sat by Pulse Oximetry [ Assessment] 12/25/17 12/25/17 12/25/17 05:00 06:00 07:00 Temperature Pulse Rate 107 H 100 H 97 H Respiratory 22 24 25 H Rate Blood Pressure 163/96 143/89 141/89 O2 Sat by Pulse 94 94 93 Oximetry O2 Sat by Pulse Oximetry [ Assessment] 12/25/17 12/25/17 12/25/17 08:00 08:27 08:50 Temperature 98.7 F Pulse Rate 102 H Respiratory 23 25 H Rate Blood Pressure 141/89 O2 Sat by Pulse 96 96 Oximetry O2 Sat by Pulse 99 Oximetry [ Assessment] 12/25/17 12/25/17 12/25/17 08:53 09:00 09:58 Temperature Pulse Rate 110 H 105 H Respiratory 30 H Rate Blood Pressure 146/96 146/96 O2 Sat by Pulse 99 99 Oximetry O2 Sat by Pulse Oximetry [ Assessment] 12/25/17 12/25/17 12/25/17 10:00 11:00 12:00 Temperature 98.4 F Pulse Rate 103 H 106 H 106 H Respiratory 25 H 22 22 Rate Blood Pressure 147/91 163/102 156/97 O2 Sat by Pulse 98 99 95 Oximetry O2 Sat by Pulse Oximetry [ Assessment] 12/25/17 13:00 Temperature Pulse Rate 104 H Respiratory 25 H Rate Blood Pressure 153/89 O2 Sat by Pulse 93 Oximetry O2 Sat by Pulse Oximetry [ Assessment] - General physical appearance no distress, no pain, other (does not respond to voice) - Respiratory normal expansion, normal respiratory effort - Abdomen soft, not tender, not distended, other (lateral drain with minimal output. ODALYS with greyish purulent drainage. ) - Labs 12/24/17 03:17 12/25/17 04:34 Diabetes panel 12/25/17 Range/Units 04:34 Sodium 145 (137-145) mmol/L Potassium 3.9 (3.6-5.0) mmol/L Chloride 104.3 (98-107) mmol/L Carbon Dioxide 27 (22-30) mmol/L BUN 30 H (9-20) mg/dL Creatinine 0.6 L (0.8-1.5) mg/dL Glucose 114 H (75-100) mg/dL Calcium 7.5 L (8.4-10.2) mg/dL AST 84 H (5-40) units/L ALT 82 H (7-56) units/L Alkaline Phosphatase 322 H (35-129) units/L Total Protein 6.0 L (6.3-8.2) g/dL Albumin 2.3 L (3.9-5) g/dL Calcium panel 12/25/17 Range/Units 04:34 Calcium 7.5 L (8.4-10.2) mg/dL Albumin 2.3 L (3.9-5) g/dL Pituitary panel 12/25/17 Range/Units 04:34 Sodium 145 (137-145) mmol/L Potassium 3.9 (3.6-5.0) mmol/L Chloride 104.3 (98-107) mmol/L Carbon Dioxide 27 (22-30) mmol/L BUN 30 H (9-20) mg/dL Creatinine 0.6 L (0.8-1.5) mg/dL Glucose 114 H (75-100) mg/dL Calcium 7.5 L (8.4-10.2) mg/dL Adrenal panel 12/25/17 Range/Units 04:34 Sodium 145 (137-145) mmol/L Potassium 3.9 (3.6-5.0) mmol/L Chloride 104.3 (98-107) mmol/L Carbon Dioxide 27 (22-30) mmol/L BUN 30 H (9-20) mg/dL Creatinine 0.6 L (0.8-1.5) mg/dL Glucose 114 H (75-100) mg/dL Calcium 7.5 L (8.4-10.2) mg/dL Total Bilirubin 0.30 (0.1-1.2) mg/dL AST 84 H (5-40) units/L ALT 82 H (7-56) units/L Alkaline Phosphatase 322 H (35-129) units/L Total Protein 6.0 L (6.3-8.2) g/dL Albumin 2.3 L (3.9-5) g/dL
[2017-12-26 05:49] LABS: Albumin 2.1 g/dL (3.9-5); BUN/Creatinine Ratio 56; Blood Urea Nitrogen 39 mg/dL (9-20); Calcium 7.8 mg/dL (8.4-10.2); Hemolysis Index 280
[2017-12-26 06:27] LABS: Alanine Aminotransferase 98 units/L (7-56)
[2017-12-26] MEDS: LOPRESSOR PO SCH ×2 (09:41→21:06)
[2017-12-26] MEDS: POTASSIUM CHLORIDE FEEDTUBE SCH (09:53)
[2017-12-26] MEDS: PREVACID SOLUTAB FEEDTUBE SCH ×2 (09:54→21:09)
--- NOTE | 2017-12-26 11:45 | Progress Note ---
Assessment and Plan Assessment * Acute kidney injury secondary to ATN --Intermittent HD started on 11/23/17 * Sepsis secondary to peritonitis/PEG malpositioning --RUQ/LUQ drains: Enterobacter, Heather (non albicans) * Aspiration pneumonitis related to above * Anemia * Acute CVA * Carotid artery disease s/p CEA * Encephalopathy Plan: * off dialysis. and follow up 24hr crcl 65ml/min * vasc cath needs to be removed * replete k and mag prn * Abx per ID * prbcs prn * Strict I/O * Avoid potential nephrptoxins * Dose medications for renal function * Replete lytes prn * Avoid nephrotoxins Subjective Date of service: 12/26/17 Principal diagnosis: Acute hypoxic respiratory failure, s/p Trach Interval history: new consult noted, last seen 11/09 with normal renal function Objective - Exam Narrative Exam: Constitutional: lethargic, other (intubated) Eyes: non-icteric ENT: oropharynx moist, other (ETT at 24 cm) Neck: supple, no JVD Ascultation: Bilateral: rhonchi (bilateral LT >>RT) Cardiovascular: regular rate and rhythm, other (tachycardic) Gastrointestinal: normoactive bowel sounds, non-distended Integumentary: normal Extremities: no cyanosis, no edema, other (RT femoral line in place) Neurologic: unable to assess (opens eyes spontaneously but does not follow commands . ) - Vital Signs Vital signs: Vital Signs - 12hr 12/26/17 12/26/17 12/26/17 00:00 00:04 01:00 Temperature 98.2 F Pulse Rate 106 H 105 H 103 H Respiratory 28 H 25 H 28 H Rate Blood Pressure 132/75 132/75 130/76 O2 Sat by Pulse 92 95 92 Oximetry O2 Sat by Pulse Oximetry [ Assessment] 12/26/17 12/26/17 12/26/17 02:00 03:00 03:12 Temperature Pulse Rate 96 H 96 H Respiratory 29 H 30 H Rate Blood Pressure 115/73 121/78 O2 Sat by Pulse 95 96 Oximetry O2 Sat by Pulse 100 Oximetry [ Assessment] 12/26/17 12/26/17 12/26/17 03:17 04:00 05:00 Temperature 98.2 F Pulse Rate 95 H 96 H Respiratory 25 H 27 H Rate Blood Pressure 127/76 120/71 O2 Sat by Pulse 100 99 98 Oximetry O2 Sat by Pulse Oximetry [ Assessment] 12/26/17 12/26/17 12/26/17 06:00 08:00 09:26 Temperature 97.8 F Pulse Rate 103 H Respiratory 28 H Rate Blood Pressure 136/74 O2 Sat by Pulse 99 100 Oximetry O2 Sat by Pulse Oximetry [ Assessment] 12/26/17 12/26/17 09:30 09:41 Temperature Pulse Rate 101 H Respiratory Rate Blood Pressure 129/88 O2 Sat by Pulse Oximetry O2 Sat by Pulse 100 Oximetry [ Assessment] - Lab 12/24/17 03:17 12/26/17 08:47 Most recent lab results Calcium 7.8 mg/dL (8.4-10.2) L 12/26/17 04:26 Phosphorus 1.60 mg/dL (2.5-4.5) L 12/20/17 19:00 Magnesium 1.80 mg/dL (1.7-2.3) 12/26/17 04:26 Urine Creatinine 55.8 mg/dL (0.1-20.0) H 12/22/17 10:50
[2017-12-26] MEDS ORDERED: MAGNESIUM SULFATE 2GM/50ML 2 GM/50 ML BAG IV ONE (12:00)
--- NOTE | 2017-12-26 14:19 | Progress Note ---
Assessment and Plan Imp: 1. CVA 2. Hemiparesis 3. Aspiration pneumonitis related to above 4. Sepsis 2/2 peritonitis/PEG mal-position, better 5. DARYA 6. s/p Trach/PEG Rec: 1. Holding HD per renal; K and mag repletion per renal 2. ABX per ID -> Finished a prolonged course of Merrem/Diflucan 3. Abdominal drains as per surgery/IR 4. SCDs; GI PPx 5. Cont. Tpiece as tolerated; trach will need to be permanent for secretion clearance 6. Pulm status stable 7. Insurance denies LTAC coverage Long-term prognosis poor; no family present Subjective Date of service: 12/26/17 Principal diagnosis: Acute hypoxic respiratory failure, s/p Trach Interval history: Awake, alert. On 28% Tpiece and tolerating well. Unable to give history. Active Medications Acetaminophen (Tylenol) 650 mg FEEDTUBE Q6H PRN PRN Reason: Pain, Mild (1-3) Last Admin: 12/22/17 20:37 Dose: 650 mg Albumin Human ([place]x 25% (Albumin)) 25 gm IV TIM PRN PRN Reason: Hypotension Last Admin: 12/18/17 12:13 Dose: 25 gm Lipase/Protease/Amylase (Pancreaze Dr 10,500 Unit) 1 each FEEDTUBE PRN PRN PRN Reason: For Clogged Feeding Tube Dextrose (D50w (25gm) Syringe) 50 ml IV PRN PRN PRN Reason: Hypoglycemia Hydralazine HCl (Apresoline) 5 mg IV Q6HR PRN PRN Reason: Hypertension Last Admin: 12/17/17 04:14 Dose: 5 mg Hydromorphone HCl (Dilaudid) 1 mg IV Q3H PRN PRN Reason: Pain , Severe (7-10) Last Admin: 12/21/17 00:04 Dose: 1 mg Sodium Chloride (Nacl 0.9%) 100 mls @ 999 mls/hr IV TIM PRN PRN Reason: Hypotension Sodium Chloride (Nacl 0.45% 1000 Ml) 1,000 mls @ 75 mls/hr IV DIRECT OSIRIS Lansoprazole (Prevacid Solutab) 30 mg FEEDTUBE BID OSIRIS Last Admin: 12/26/17 09:54 Dose: 30 mg Metoprolol Tartrate (Lopressor) 25 mg PO BID OSIRIS Last Admin: 12/26/17 09:41 Dose: 25 mg Ondansetron HCl (Zofran) 4 mg IV Q3H PRN PRN Reason: Nausea And Vomiting Last Admin: 12/17/17 20:46 Dose: 4 mg Potassium Chloride (Potassium Chloride) 20 meq FEEDTUBE QDAY OSIRIS Simple Syrup (Simple Syrup) 15 ml FEEDTUBE PRN PRN PRN Reason: Hypoglycemia Simple Syrup (Simple Syrup) 30 ml FEEDTUBE PRN PRN PRN Reason: Hypoglycemia Sodium Bicarbonate (Sodium Bicarbonate) 325 mg FEEDTUBE PRN PRN PRN Reason: For Clogged Feeding Tube Objective Vital Signs - 12hr 12/26/17 12/26/17 12/26/17 03:00 03:12 03:17 Temperature Pulse Rate 96 H Pulse Rate [ Right From Monitor] Respiratory 30 H Rate Blood Pressure 121/78 O2 Sat by Pulse 96 100 Oximetry O2 Sat by Pulse 100 Oximetry [ Assessment] 12/26/17 12/26/17 12/26/17 04:00 05:00 06:00 Temperature 98.2 F Pulse Rate 95 H 96 H 103 H Pulse Rate [ Right From Monitor] Respiratory 25 H 27 H 28 H Rate Blood Pressure 127/76 120/71 136/74 O2 Sat by Pulse 99 98 99 Oximetry O2 Sat by Pulse Oximetry [ Assessment] 12/26/17 12/26/17 12/26/17 07:00 08:00 09:00 Temperature 97.8 F Pulse Rate 87 106 H 105 H Pulse Rate [ Right From Monitor] Respiratory 27 H 25 H 20 Rate Blood Pressure 136/71 145/79 139/91 O2 Sat by Pulse 97 94 97 Oximetry O2 Sat by Pulse Oximetry [ Assessment] 12/26/17 12/26/17 12/26/17 09:26 09:30 09:41 Temperature Pulse Rate 101 H Pulse Rate [ Right From Monitor] Respiratory Rate Blood Pressure 129/88 O2 Sat by Pulse 100 Oximetry O2 Sat by Pulse 100 Oximetry [ Assessment] 12/26/17 12/26/17 12/26/17 10:00 11:00 12:00 Temperature 98.2 F Pulse Rate 116 H 101 H 110 H Pulse Rate [ 106 H Right From Monitor] Respiratory 26 H 35 H 36 H Rate Blood Pressure 132/93 152/95 160/106 O2 Sat by Pulse 97 100 99 Oximetry O2 Sat by Pulse Oximetry [ Assessment] 12/26/17 13:00 Temperature Pulse Rate 108 H Pulse Rate [ Right From Monitor] Respiratory 30 H Rate Blood Pressure 153/92 O2 Sat by Pulse 95 Oximetry O2 Sat by Pulse Oximetry [ Assessment] Constitutional: no acute distress, alert Eyes: non-icteric ENT: oropharynx moist Neck: supple (trach in position) Effort: normal Ascultation: Bilateral: rhonchi (mild bilateral) Cardiovascular: regular rate and rhythm Gastrointestinal: normoactive bowel sounds, soft, non-tender, other (drains in place) Integumentary: normal Extremities: no cyanosis, pink and warm, edema (2+ bilateral LE edema) Neurologic: other (L hemiparesis,awake, response to my voice) Psychiatric: other (unable to assess) CBC and BMP: 12/24/17 03:17 12/26/17 08:47 ABG, PT/INR, D-dimer: ABG POC ABG pH 7.505 (7.35-7.45) H 11/23/17 04:56 POC ABG pCO2 26.3 (35-45) L 11/23/17 04:56 POC ABG pO2 100 (80-105) 11/23/17 04:56 POC ABG HCO3 20.8 11/23/17 04:56 POC ABG Total CO2 22 11/23/17 04:56 POC ABG O2 Sat 98 11/23/17 04:56 PT/INR, D-dimer PT 15.4 Sec. (12.2-14.9) H 12/14/17 05:11 INR 1.17 (0.87-1.13) H 12/14/17 05:11 Abnormal lab findings: Abnormal Labs 11/11/17 11/11/17 11/11/17 23:18 23:20 23:20 WBC RBC Hgb 10.4 L Hct 32.6 L D MCV MCH 27 L MCHC RDW 17.4 H Plt Count 105 L Lymph % (Auto) [place] % (Auto) Eos % (Auto) Lymph # [place] # Eos # Seg Neutrophils % Seg Neuts % (Manual) Lymphocytes % (Manual) 8.0 L Monocytes % (Manual) Eosinophils % (Manual) Nucleated RBC % 1.0 H Seg Neutrophils # Seg Neutrophils # Man Lymphocytes # (Manual) 0.7 L Monocytes # (Manual) Eosinophils # (Manual) PT INR POC ABG pH 7.550 H POC ABG pCO2 31.6 L POC ABG pO2 Sodium 146 H Potassium Chloride Carbon Dioxide BUN 26 H Creatinine 1.7 H D Glucose 133 H POC Glucose Lactic Acid Calcium Phosphorus Magnesium AST ALT Alkaline Phosphatase Troponin T 0.117 H* C-Reactive Protein Total Protein Albumin 2.5 L LDL Cholesterol Direct 42 L HDL Cholesterol 24 L Urine Creatinine Hepatitis C Antibody Crossmatch Crossmatch P[place]armed 11/11/17 11/12/17 11/12/17 23:20 00:23 00:23 WBC RBC Hgb Hct MCV MCH MCHC RDW Plt Count Lymph % (Auto) [place] % (Auto) Eos % (Auto) Lymph # [place] # Eos # Seg Neutrophils % Seg Neuts % (Manual) Lymphocytes % (Manual) Monocytes % (Manual) Eosinophils % (Manual) Nucleated RBC % Seg Neutrophils # Seg Neutrophils # Man Lymphocytes # (Manual) Monocytes # (Manual) Eosinophils # (Manual) PT 16.7 H INR 1.28 H POC ABG pH POC ABG pCO2 POC ABG pO2 Sodium Potassium Chloride Carbon Dioxide BUN Creatinine Glucose POC Glucose Lactic Acid 3.20 H* Calcium Phosphorus Magnesium AST ALT Alkaline Phosphatase Troponin T C-Reactive Protein 25.70 H Total Protein Albumin LDL Cholesterol Direct HDL Cholesterol Urine Creatinine Hepatitis C Antibody Crossmatch Crossmatch P[place]armed 11/12/17 11/12/17 11/12/17 00:46 01:27 01:27 WBC RBC Hgb Hct MCV MCH MCHC RDW Plt Count Lymph % (Auto) [place] % (Auto) Eos % (Auto) Lymph # [place] # Eos # Seg Neutrophils % Seg Neuts % (Manual) Lymphocytes % (Manual) Monocytes % (Manual) Eosinophils % (Manual) Nucleated RBC % Seg Neutrophils # Seg Neutrophils # Man Lymphocytes # (Manual) Monocytes # (Manual) Eosinophils # (Manual) PT INR POC ABG pH 7.495 H POC ABG pCO2 32.0 L POC ABG pO2 64 L Sodium Potassium Chloride Carbon Dioxide BUN Creatinine Glucose POC Glucose Lactic Acid 3.70 H* Calcium Phosphorus Magnesium AST ALT Alkaline Phosphatase Troponin T 0.096 H C-Reactive Protein Total Protein Albumin LDL Cholesterol Direct HDL Cholesterol Urine Creatinine Hepatitis C Antibody Crossmatch Crossmatch P[place]armed 11/12/17 11/12/17 11/12/17 03:21 04:50 06:27 WBC RBC Hgb Hct MCV MCH MCHC RDW Plt Count Lymph % (Auto) [place] % (Auto) Eos % (Auto) Lymph # [place] # Eos # Seg Neutrophils % Seg Neuts % (Manual) Lymphocytes % (Manual) Monocytes % (Manual) Eosinophils % (Manual) Nucleated RBC % Seg Neutrophils # Seg Neutrophils # Man Lymphocytes # (Manual) Monocytes # (Manual) Eosinophils # (Manual) PT INR POC ABG pH POC ABG pCO2 POC ABG pO2 109 H Sodium Potassium Chloride Carbon Dioxide BUN Creatinine Glucose POC Glucose Lactic Acid 3.80 H* 2.20 H* Calcium Phosphorus Magnesium AST ALT Alkaline Phosphatase Troponin T C-Reactive Protein Total Protein Albumin LDL Cholesterol Direct HDL Cholesterol Urine Creatinine Hepatitis C Antibody Crossmatch Crossmatch P[place]armed 11/12/17 11/12/17 11/12/17 09:24 09:24 09:24 WBC RBC Hgb 10.4 L Hct 33.4 L MCV MCH MCHC RDW Plt Count Lymph % (Auto) [place] % (Auto) Eos % (Auto) Lymph # [place] # Eos # Seg Neutrophils % Seg Neuts % (Manual) Lymphocytes % (Manual) Monocytes % (Manual) Eosinophils % (Manual) Nucleated RBC % Seg Neutrophils # Seg Neutrophils # Man Lymphocytes # (Manual) Monocytes # (Manual) Eosinophils # (Manual) PT INR POC ABG pH POC ABG pCO2 POC ABG pO2 Sodium Potassium Chloride Carbon Dioxide BUN Creatinine Glucose POC Glucose Lactic Acid 2.90 H* Calcium Phosphorus Magnesium AST ALT Alkaline Phosphatase Troponin T 0.091 H C-Reactive Protein Total Protein Albumin LDL Cholesterol Direct HDL Cholesterol Urine Creatinine Hepatitis C Antibody Crossmatch Crossmatch P[place]armed 11/12/17 11/12/17 11/12/17 12:56 20:03 Unknown WBC RBC Hgb Hct MCV MCH MCHC RDW Plt Count Lymph % (Auto) [place] % (Auto) Eos % (Auto) Lymph # [place] # Eos # Seg Neutrophils % Seg Neuts % (Manual) Lymphocytes % (Manual) Monocytes % (Manual) Eosinophils % (Manual) Nucleated RBC % Seg Neutrophils # Seg Neutrophils # Man Lymphocytes # (Manual) Monocytes # (Manual) Eosinophils # (Manual) PT INR POC ABG pH POC ABG pCO2 POC ABG pO2 Sodium Potassium Chloride Carbon Dioxide BUN Creatinine Glucose POC Glucose Lactic Acid 3.60 H* Calcium Phosphorus Magnesium AST ALT Alkaline Phosphatase Troponin T 0.102 H* 0.156 H* D C-Reactive Protein Total Protein Albumin LDL Cholesterol Direct HDL Cholesterol Urine Creatinine Hepatitis C Antibody Crossmatch Crossmatch P[place]armed 11/12/17 11/13/17 11/13/17 Unknown 04:50 04:50 WBC 12.2 H RBC 3.51 L Hgb 9.3 L Hct 30.1 L MCV MCH 26 L MCHC 31 L RDW 18.0 H Plt Count 128 L Lymph % (Auto) 8.6 L [place] % (Auto) 11.1 H Eos % (Auto) Lymph # 1.1 L [place] # 1.4 H Eos # Seg Neutrophils % 80.1 H Seg Neuts % (Manual) Lymphocytes % (Manual) Monocytes % (Manual) Eosinophils % (Manual) Nucleated RBC % Seg Neutrophils # 9.8 H Seg Neutrophils # Man Lymphocytes # (Manual) Monocytes # (Manual) Eosinophils # (Manual) PT INR POC ABG pH POC ABG pCO2 POC ABG pO2 Sodium 149 H Potassium 5.1 H Chloride 114.4 H Carbon Dioxide 18 L BUN 52 H Creatinine 3.3 H D Glucose 129 H POC Glucose Lactic Acid Calcium 7.9 L Phosphorus Magnesium AST ALT Alkaline Phosphatase Troponin T 0.098 H C-Reactive Protein Total Protein Albumin LDL Cholesterol Direct HDL Cholesterol Urine Creatinine Hepatitis C Antibody Crossmatch Crossmatch P[place]armed 11/13/17 11/13/17 11/14/17 04:51 09:34 04:21 WBC RBC Hgb Hct MCV MCH MCHC RDW Plt Count Lymph % (Auto) [place] % (Auto) Eos % (Auto) Lymph # [place] # Eos # Seg Neutrophils % Seg Neuts % (Manual) Lymphocytes % (Manual) Monocytes % (Manual) Eosinophils % (Manual) Nucleated RBC % Seg Neutrophils # Seg Neutrophils # Man Lymphocytes # (Manual) Monocytes # (Manual) Eosinophils # (Manual) PT INR POC ABG pH POC ABG pCO2 30.1 L 29.8 L POC ABG pO2 135 H Sodium Potassium Chloride Carbon Dioxide BUN Creatinine Glucose POC Glucose Lactic Acid 2.10 H* Calcium Phosphorus Magnesium AST ALT Alkaline Phosphatase Troponin T C-Reactive Protein Total Protein Albumin LDL Cholesterol Direct HDL Cholesterol Urine Creatinine Hepatitis C Antibody Crossmatch Crossmatch P[place]armed 11/15/17 11/15/17 11/16/17 04:52 15:50 05:17 WBC RBC Hgb Hct MCV MCH MCHC RDW Plt Count Lymph % (Auto) [place] % (Auto) Eos % (Auto) Lymph # [place] # Eos # Seg Neutrophils % Seg Neuts % (Manual) Lymphocytes % (Manual) Monocytes % (Manual) Eosinophils % (Manual) Nucleated RBC % Seg Neutrophils # Seg Neutrophils # Man Lymphocytes # (Manual) Monocytes # (Manual) Eosinophils # (Manual) PT INR POC ABG pH POC ABG pCO2 29.5 L 31.5 L POC ABG pO2 115 H 122 H Sodium 154 H Potassium Chloride 117.9 H Carbon Dioxide 19 L BUN 87 H Creatinine 4.1 H Glucose POC Glucose Lactic Acid Calcium 8.1 L Phosphorus Magnesium AST ALT Alkaline Phosphatase Troponin T C-Reactive Protein Total Protein Albumin LDL Cholesterol Direct HDL Cholesterol Urine Creatinine Hepatitis C Antibody Crossmatch Crossmatch P[place]armed 11/16/17 11/17/17 11/17/17 16:37 04:07 10:00 WBC 14.7 H RBC 3.23 L Hgb 8.3 L Hct 28.1 L MCV MCH 26 L MCHC 30 L RDW 18.8 H Plt Count Lymph % (Auto) [place] % (Auto) Eos % (Auto) Lymph # [place] # Eos # Seg Neutrophils % Seg Neuts % (Manual) 75 H Lymphocytes % (Manual) 8.0 L Monocytes % (Manual) Eosinophils % (Manual) Nucleated RBC % 1.0 H Seg Neutrophils # Seg Neutrophils # Man 11.0 H Lymphocytes # (Manual) Monocytes # (Manual) 0.9 H Eosinophils # (Manual) PT INR POC ABG pH POC ABG pCO2 POC ABG pO2 Sodium 153 H 155 H Potassium Chloride 117.3 H 119.4 H Carbon Dioxide 19 L 20 L BUN 90 H 89 H Creatinine 3.9 H 3.6 H Glucose 111 H 115 H POC Glucose Lactic Acid Calcium 8.1 L 8.0 L Phosphorus Magnesium AST ALT Alkaline Phosphatase Troponin T C-Reactive Protein Total Protein Albumin LDL Cholesterol Direct HDL Cholesterol Urine Creatinine Hepatitis C Antibody Crossmatch Crossmatch P[place]armed 11/18/17 11/18/17 11/18/17 04:34 04:34 04:34 WBC 15.5 H RBC 3.13 L Hgb 8.1 L Hct 26.3 L MCV MCH 26 L MCHC 31 L RDW 18.6 H Plt Count Lymph % (Auto) [place] % (Auto) Eos % (Auto) Lymph # [place] # Eos # Seg Neutrophils % Seg Neuts % (Manual) 81.0 H Lymphocytes % (Manual) 7.0 L Monocytes % (Manual) Eosinophils % (Manual) Nucleated RBC % 1.0 H Seg Neutrophils # Seg Neutrophils # Man 12.6 H Lymphocytes # (Manual) 1.1 L Monocytes # (Manual) Eosinophils # (Manual) PT 16.7 H INR 1.30 H POC ABG pH POC ABG pCO2 POC ABG pO2 Sodium 155 H Potassium 3.2 L Chloride 121.0 H Carbon Dioxide 20 L BUN 74 H Creatinine 2.9 H Glucose 126 H POC Glucose Lactic Acid Calcium 7.9 L Phosphorus Magnesium AST ALT Alkaline Phosphatase Troponin T C-Reactive Protein Total Protein Albumin LDL Cholesterol Direct HDL Cholesterol Urine Creatinine Hepatitis C Antibody Crossmatch Crossmatch P[place]armed 11/19/17 11/19/17 11/20/17 04:44 04:44 00:38 WBC 19.0 H 22.2 H RBC 3.20 L 3.17 L Hgb 8.4 L 7.9 L Hct 27.9 L 26.4 L MCV 83 L MCH 26 L 25 L MCHC 30 L 30 L RDW 19.1 H 18.9 H Plt Count Lymph % (Auto) [place] % (Auto) Eos % (Auto) Lymph # [place] # Eos # Seg Neutrophils % Seg Neuts % (Manual) 83.0 H Lymphocytes % (Manual) 3.0 L Monocytes % (Manual) 9.0 H Eosinophils % (Manual) Nucleated RBC % Seg Neutrophils # Seg Neutrophils # Man 18.4 H Lymphocytes # (Manual) 0.7 L Monocytes # (Manual) 2.0 H Eosinophils # (Manual) PT INR POC ABG pH POC ABG pCO2 POC ABG pO2 Sodium 152 H Potassium Chloride 117.1 H Carbon Dioxide 17 L BUN 66 H Creatinine 2.8 H Glucose 119 H POC Glucose Lactic Acid Calcium 7.8 L Phosphorus Magnesium 2.70 H AST ALT Alkaline Phosphatase Troponin T C-Reactive Protein Total Protein Albumin LDL Cholesterol Direct HDL Cholesterol Urine Creatinine Hepatitis C Antibody Crossmatch Crossmatch P[place]armed 11/20/17 11/20/17 11/20/17 03:29 04:48 13:38 WBC RBC Hgb Hct MCV MCH MCHC RDW Plt Count Lymph % (Auto) [place] % (Auto) Eos % (Auto) Lymph # [place] # Eos # Seg Neutrophils % Seg Neuts % (Manual) Lymphocytes % (Manual) Monocytes % (Manual) Eosinophils % (Manual) Nucleated RBC % Seg Neutrophils # Seg Neutrophils # Man Lymphocytes # (Manual) Monocytes # (Manual) Eosinophils # (Manual) PT INR POC ABG pH POC ABG pCO2 29.4 L POC ABG pO2 Sodium 148 H Potassium 3.4 L Chloride 113.7 H Carbon Dioxide 18 L BUN 59 H Creatinine 2.7 H Glucose 113 H POC Glucose 128 H Lactic Acid Calcium 7.8 L Phosphorus Magnesium AST ALT Alkaline Phosphatase Troponin T C-Reactive Protein Total Protein Albumin LDL Cholesterol Direct HDL Cholesterol Urine Creatinine Hepatitis C Antibody Crossmatch Crossmatch P[place]armed 11/20/17 11/20/17 11/21/17 17:38 23:40 00:13 WBC RBC Hgb 8.4 L Hct 28.0 L MCV MCH MCHC RDW Plt Count Lymph % (Auto) [place] % (Auto) Eos % (Auto) Lymph # [place] # Eos # Seg Neutrophils % Seg Neuts % (Manual) Lymphocytes % (Manual) Monocytes % (Manual) Eosinophils % (Manual) Nucleated RBC % Seg Neutrophils # Seg Neutrophils # Man Lymphocytes # (Manual) Monocytes # (Manual) Eosinophils # (Manual) PT INR POC ABG pH POC ABG pCO2 POC ABG pO2 Sodium Potassium Chloride Carbon Dioxide BUN Creatinine Glucose POC Glucose 115 H 145 H Lactic Acid Calcium Phosphorus Magnesium AST ALT Alkaline Phosphatase Troponin T C-Reactive Protein Total Protein Albumin LDL Cholesterol Direct HDL Cholesterol Urine Creatinine Hepatitis C Antibody Crossmatch Crossmatch P[place]armed 11/21/17 11/21/17 11/21/17 04:30 04:30 04:58 WBC 21.0 H RBC Hgb 9.6 L Hct 32.7 L MCV MCH 25 L MCHC 29 L RDW 19.7 H Plt Count 746 H Lymph % (Auto) [place] % (Auto) Eos % (Auto) Lymph # [place] # Eos # Seg Neutrophils % Seg Neuts % (Manual) Lymphocytes % (Manual) Monocytes % (Manual) Eosinophils % (Manual) Nucleated RBC % Seg Neutrophils # Seg Neutrophils # Man Lymphocytes # (Manual) Monocytes # (Manual) Eosinophils # (Manual) PT INR POC ABG pH POC ABG pCO2 POC ABG pO2 Sodium Potassium Chloride 109.4 H Carbon Dioxide 14 L BUN 59 H Creatinine 3.0 H Glucose 137 H POC Glucose 132 H Lactic Acid Calcium 7.6 L Phosphorus Magnesium AST ALT Alkaline Phosphatase Troponin T C-Reactive Protein Total Protein Albumin LDL Cholesterol Direct HDL Cholesterol Urine Creatinine Hepatitis C Antibody Crossmatch Crossmatch [place]armed 11/21/17 11/21/17 11/21/17 06:30 13:43 14:17 WBC 38.2 H RBC Hgb 9.0 L Hct 32.3 L MCV MCH 25 L MCHC 28 L RDW 20.0 H Plt Count 766 H Lymph % (Auto) [place] % (Auto) Eos % (Auto) Lymph # [place] # Eos # Seg Neutrophils % Seg Neuts % (Manual) 85.0 H Lymphocytes % (Manual) 1.0 L Monocytes % (Manual) Eosinophils % (Manual) Nucleated RBC % 2.0 H Seg Neutrophils # Seg Neutrophils # Man 32.5 H Lymphocytes # (Manual) 0.4 L Monocytes # (Manual) 2.3 H Eosinophils # (Manual) PT INR POC ABG pH POC ABG pCO2 18.6 L POC ABG pO2 121 H Sodium 146 H Potassium Chloride 110.9 H Carbon Dioxide 11 L BUN 62 H Creatinine 4.0 H Glucose 64 L POC Glucose Lactic Acid Calcium 7.6 L Phosphorus Magnesium AST ALT Alkaline Phosphatase Troponin T C-Reactive Protein Total Protein Albumin LDL Cholesterol Direct HDL Cholesterol Urine Creatinine Hepatitis C Antibody Crossmatch Crossmatch P[place]armed 11/21/17 11/21/17 11/22/17 14:17 19:09 00:05 WBC RBC Hgb Hct MCV MCH MCHC RDW Plt Count Lymph % (Auto) [place] % (Auto) Eos % (Auto) Lymph # [place] # Eos # Seg Neutrophils % Seg Neuts % (Manual) Lymphocytes % (Manual) Monocytes % (Manual) Eosinophils % (Manual) Nucleated RBC % Seg Neutrophils # Seg Neutrophils # Man Lymphocytes # (Manual) Monocytes # (Manual) Eosinophils # (Manual) PT INR POC ABG pH POC ABG pCO2 20.0 L POC ABG pO2 Sodium Potassium Chloride Carbon Dioxide BUN Creatinine Glucose POC Glucose 127 H Lactic Acid 7.70 H* Calcium Phosphorus Magnesium AST ALT Alkaline Phosphatase Troponin T C-Reactive Protein Total Protein Albumin LDL Cholesterol Direct HDL Cholesterol Urine Creatinine Hepatitis C Antibody Crossmatch Crossmatch [place]armed 11/22/17 11/22/17 11/22/17 03:53 06:00 07:25 WBC RBC Hgb Hct MCV MCH MCHC RDW Plt Count Lymph % (Auto) [place] % (Auto) Eos % (Auto) Lymph # [place] # Eos # Seg Neutrophils % Seg Neuts % (Manual) Lymphocytes % (Manual) Monocytes % (Manual) Eosinophils % (Manual) Nucleated RBC % Seg Neutrophils # Seg Neutrophils # Man Lymphocytes # (Manual) Monocytes # (Manual) Eosinophils # (Manual) PT INR POC ABG pH POC ABG pCO2 22.2 L POC ABG pO2 Sodium 147 H Potassium Chloride 111.9 H Carbon Dioxide 16 L BUN 72 H Creatinine 5.1 H Glucose 181 H POC Glucose 180 H Lactic Acid Calcium 7.1 L Phosphorus Magnesium AST ALT Alkaline Phosphatase Troponin T C-Reactive Protein Total Protein Albumin LDL Cholesterol Direct HDL Cholesterol Urine Creatinine Hepatitis C Antibody Crossmatch Crossmatch [place]armed 11/22/17 11/22/17 11/22/17 07:25 07:25 12:05 WBC 31.4 H RBC 3.22 L Hgb 8.0 L Hct 26.7 L MCV 83 L MCH 25 L MCHC 30 L RDW 19.4 H Plt Count 602 H Lymph % (Auto) [place] % (Auto) Eos % (Auto) Lymph # [place] # Eos # Seg Neutrophils % Seg Neuts % (Manual) Lymphocytes % (Manual) Monocytes % (Manual) Eosinophils % (Manual) Nucleated RBC % Seg Neutrophils # Seg Neutrophils # Man Lymphocytes # (Manual) Monocytes # (Manual) Eosinophils # (Manual) PT INR POC ABG pH POC ABG pCO2 POC ABG pO2 Sodium Potassium Chloride Carbon Dioxide BUN Creatinine Glucose POC Glucose 182 H Lactic Acid 5.00 H* Calcium Phosphorus Magnesium AST ALT Alkaline Phosphatase Troponin T C-Reactive Protein Total Protein Albumin LDL Cholesterol Direct HDL Cholesterol Urine Creatinine Hepatitis C Antibody Crossmatch Crossmatch P[place]armed 11/22/17 11/23/17 11/23/17 19:45 01:28 04:56 WBC RBC Hgb Hct MCV MCH MCHC RDW Plt Count Lymph % (Auto) [place] % (Auto) Eos % (Auto) Lymph # [place] # Eos # Seg Neutrophils % Seg Neuts % (Manual) Lymphocytes % (Manual) Monocytes % (Manual) Eosinophils % (Manual) Nucleated RBC % Seg Neutrophils # Seg Neutrophils # Man Lymphocytes # (Manual) Monocytes # (Manual) Eosinophils # (Manual) PT INR POC ABG pH 7.505 H POC ABG pCO2 26.3 L POC ABG pO2 Sodium Potassium Chloride Carbon Dioxide BUN Creatinine Glucose POC Glucose 165 H Lactic Acid Calcium Phosphorus Magnesium AST ALT Alkaline Phosphatase Troponin T C-Reactive Protein Total Protein Albumin LDL Cholesterol Direct HDL Cholesterol Urine Creatinine Hepatitis C Antibody Reactive A Crossmatch Crossmatch P[place]armed 11/23/17 11/23/17 11/23/17 07:05 12:32 17:53 WBC RBC Hgb Hct MCV MCH MCHC RDW Plt Count Lymph % (Auto) [place] % (Auto) Eos % (Auto) Lymph # [place] # Eos # Seg Neutrophils % Seg Neuts % (Manual) Lymphocytes % (Manual) Monocytes % (Manual) Eosinophils % (Manual) Nucleated RBC % Seg Neutrophils # Seg Neutrophils # Man Lymphocytes # (Manual) Monocytes # (Manual) Eosinophils # (Manual) PT INR POC ABG pH POC ABG pCO2 POC ABG pO2 Sodium Potassium Chloride Carbon Dioxide 18 L BUN 61 H Creatinine 4.2 H Glucose 153 H POC Glucose 138 H 173 H Lactic Acid Calcium 7.5 L Phosphorus Magnesium AST ALT Alkaline Phosphatase Troponin T C-Reactive Protein Total Protein Albumin LDL Cholesterol Direct HDL Cholesterol Urine Creatinine Hepatitis C Antibody Crossmatch Crossmatch [place]armed 11/23/17 11/24/17 11/24/17 23:41 05:42 05:42 WBC 21.5 H RBC 2.48 L Hgb 6.2 L Hct 20.3 L D MCV 82 L MCH 25 L MCHC 31 L RDW 18.9 H Plt Count Lymph % (Auto) [place] % (Auto) Eos % (Auto) Lymph # [place] # Eos # Seg Neutrophils % Seg Neuts % (Manual) 94.0 H Lymphocytes % (Manual) 3.0 L Monocytes % (Manual) Eosinophils % (Manual) Nucleated RBC % Seg Neutrophils # Seg Neutrophils # Man 20.2 H Lymphocytes # (Manual) 0.6 L Monocytes # (Manual) Eosinophils # (Manual) PT INR POC ABG pH POC ABG pCO2 POC ABG pO2 Sodium 149 H Potassium 2.8 L* D Chloride 113.9 H Carbon Dioxide 19 L BUN 31 H Creatinine 2.3 H Glucose 103 H POC Glucose 133 H Lactic Acid Calcium 5.3 L* D Phosphorus Magnesium 1.30 L AST ALT Alkaline Phosphatase Troponin T C-Reactive Protein Total Protein Albumin LDL Cholesterol Direct HDL Cholesterol Urine Creatinine Hepatitis C Antibody Crossmatch Crossmatch [place]armed 11/24/17 11/24/17 11/24/17 05:42 08:27 08:27 WBC RBC Hgb Hct MCV MCH MCHC RDW Plt Count Lymph % (Auto) [place] % (Auto) Eos % (Auto) Lymph # [place] # Eos # Seg Neutrophils % Seg Neuts % (Manual) Lymphocytes % (Manual) Monocytes % (Manual) Eosinophils % (Manual) Nucleated RBC % Seg Neutrophils # Seg Neutrophils # Man Lymphocytes # (Manual) Monocytes # (Manual) Eosinophils # (Manual) PT INR POC ABG pH POC ABG pCO2 POC ABG pO2 Sodium Potassium Chloride Carbon Dioxide BUN Creatinine Glucose POC Glucose Lactic Acid 5.40 H* 5.20 H* Calcium Phosphorus Magnesium AST ALT Alkaline Phosphatase Troponin T C-Reactive Protein Total Protein Albumin LDL Cholesterol Direct HDL Cholesterol Urine Creatinine Hepatitis C Antibody Crossmatch See Detail Crossmatch P[place]armed 11/24/17 11/24/17 11/24/17 12:13 17:22 21:53 WBC 23.0 H RBC 3.32 L Hgb 8.8 L Hct 27.1 L D MCV 82 L MCH 26 L MCHC RDW 17.3 H Plt Count Lymph % (Auto) [place] % (Auto) Eos % (Auto) Lymph # [place] # Eos # Seg Neutrophils % Seg Neuts % (Manual) Lymphocytes % (Manual) Monocytes % (Manual) Eosinophils % (Manual) Nucleated RBC % Seg Neutrophils # Seg Neutrophils # Man Lymphocytes # (Manual) Monocytes # (Manual) Eosinophils # (Manual) PT INR POC ABG pH POC ABG pCO2 POC ABG pO2 Sodium Potassium Chloride Carbon Dioxide BUN Creatinine Glucose POC Glucose 138 H 180 H Lactic Acid Calcium Phosphorus Magnesium AST ALT Alkaline Phosphatase Troponin T C-Reactive Protein Total Protein Albumin LDL Cholesterol Direct HDL Cholesterol Urine Creatinine Hepatitis C Antibody Crossmatch Crossmatch [place]armed 11/24/17 11/24/17 11/25/17 21:53 23:28 04:19 WBC RBC Hgb Hct MCV MCH MCHC RDW Plt Count Lymph % (Auto) [place] % (Auto) Eos % (Auto) Lymph # Barton # Eos # Seg Neutrophils % Seg Neuts % (Manual) Lymphocytes % (Manual) Monocytes % (Manual) Eosinophils % (Manual) Nucleated RBC % Seg Neutrophils # Seg Neutrophils # Man Lymphocytes # (Manual) Monocytes # (Manual) Eosinophils # (Manual) PT INR POC ABG pH POC ABG pCO2 POC ABG pO2 Sodium Potassium Chloride 96.3 L Carbon Dioxide BUN 28 H 31 H Creatinine 2.3 H 2.6 H Glucose 125 H 101 H POC Glucose 111 H Lactic Acid Calcium 7.5 L D 7.4 L Phosphorus Magnesium AST 170 H ALT 179 H Alkaline Phosphatase 175 H Troponin T C-Reactive Protein Total Protein 5.5 L Albumin 1.8 L LDL Cholesterol Direct HDL Cholesterol Urine Creatinine Hepatitis C Antibody Crossmatch Crossmatch [facility] 11/25/17 11/25/17 11/26/17 04:19 04:19 06:29 WBC 22.5 H RBC 3.48 L Hgb 9.1 L Hct 28.3 L MCV 81 L MCH 26 L MCHC RDW 17.4 H Plt Count Lymph % (Auto) [place] % (Auto) Eos % (Auto) Lymph # [place] # Eos # Seg Neutrophils % Seg Neuts % (Manual) Lymphocytes % (Manual) Monocytes % (Manual) Eosinophils % (Manual) Nucleated RBC % Seg Neutrophils # Seg Neutrophils # Man Lymphocytes # (Manual) Monocytes # (Manual) Eosinophils # (Manual) PT 23.6 H INR 1.96 H POC ABG pH POC ABG pCO2 POC ABG pO2 Sodium Potassium Chloride Carbon Dioxide BUN 31 H Creatinine 2.6 H Glucose 101 H POC Glucose Lactic Acid Calcium 7.5 L Phosphorus Magnesium AST ALT Alkaline Phosphatase Troponin T C-Reactive Protein Total Protein Albumin LDL Cholesterol Direct HDL Cholesterol Urine Creatinine Hepatitis C Antibody Crossmatch Crossmatch [facility] 11/26/17 11/27/17 11/27/17 06:34 04:06 04:06 WBC 11.3 H RBC 3.13 L Hgb 8.4 L Hct 25.8 L MCV 82 L MCH 27 L MCHC RDW 17.7 H Plt Count Lymph % (Auto) 7.4 L [place] % (Auto) Eos % (Auto) Lymph # 0.8 L [place] # Eos # Seg Neutrophils % 83.7 H Seg Neuts % (Manual) Lymphocytes % (Manual) Monocytes % (Manual) Eosinophils % (Manual) Nucleated RBC % Seg Neutrophils # 9.5 H Seg Neutrophils # Man Lymphocytes # (Manual) Monocytes # (Manual) Eosinophils # (Manual) PT INR POC ABG pH POC ABG pCO2 POC ABG pO2 Sodium Potassium Chloride 97.9 L Carbon Dioxide BUN 43 H 29 H Creatinine 3.5 H 2.9 H Glucose POC Glucose Lactic Acid Calcium 7.5 L 8.1 L Phosphorus Magnesium AST ALT Alkaline Phosphatase Troponin T C-Reactive Protein Total Protein Albumin LDL Cholesterol Direct HDL Cholesterol Urine Creatinine Hepatitis C Antibody Crossmatch Crossmatch [facility] 11/27/17 11/28/1718 18:11 00:16 03:50 WBC RBC Hgb Hct MCV MCH MCHC RDW Plt Count Lymph % (Auto) [place] % (Auto) Eos % (Auto) Lymph # [place] # Eos # Seg Neutrophils % Seg Neuts % (Manual) Lymphocytes % (Manual) Monocytes % (Manual) Eosinophils % (Manual) Nucleated RBC % Seg Neutrophils # Seg Neutrophils # Man Lymphocytes # (Manual) Monocytes # (Manual) Eosinophils # (Manual) PT INR POC ABG pH POC ABG pCO2 POC ABG pO2 Sodium Potassium Chloride Carbon Dioxide BUN 39 H Creatinine 4.1 H Glucose 108 H POC Glucose 110 H 124 H Lactic Acid Calcium 7.9 L Phosphorus Magnesium AST ALT Alkaline Phosphatase Troponin T C-Reactive Protein Total Protein Albumin LDL Cholesterol Direct HDL Cholesterol Urine Creatinine Hepatitis C Antibody Crossmatch Crossmatch [facility] 11/28/17 11/28/17 11/28/17 05:03 11:36 17:42 WBC RBC Hgb Hct MCV MCH MCHC RDW Plt Count Lymph % (Auto) [place] % (Auto) Eos % (Auto) Lymph # [place] # Eos # Seg Neutrophils % Seg Neuts % (Manual) Lymphocytes % (Manual) Monocytes % (Manual) Eosinophils % (Manual) Nucleated RBC % Seg Neutrophils # Seg Neutrophils # Man Lymphocytes # (Manual) Monocytes # (Manual) Eosinophils # (Manual) PT INR POC ABG pH POC ABG pCO2 POC ABG pO2 Sodium Potassium Chloride Carbon Dioxide BUN Creatinine Glucose POC Glucose 134 H 114 H 119 H Lactic Acid Calcium Phosphorus Magnesium AST ALT Alkaline Phosphatase Troponin T C-Reactive Protein Total Protein Albumin LDL Cholesterol Direct HDL Cholesterol Urine Creatinine Hepatitis C Antibody Crossmatch Crossmatch [facility] 11/29/17 11/29/17 11/29/17 00:22 05:25 05:25 WBC 12.3 H RBC 3.34 L Hgb 8.6 L Hct 27.3 L MCV 82 L MCH 26 L MCHC RDW 18.5 H Plt Count Lymph % (Auto) 3.7 L [place] % (Auto) 7.7 H Eos % (Auto) Lymph # 0.5 L [place] # 1.0 H Eos # Seg Neutrophils % 86.5 H Seg Neuts % (Manual) Lymphocytes % (Manual) Monocytes % (Manual) Eosinophils % (Manual) Nucleated RBC % Seg Neutrophils # 10.7 H Seg Neutrophils # Man Lymphocytes # (Manual) Monocytes # (Manual) Eosinophils # (Manual) PT INR POC ABG pH POC ABG pCO2 POC ABG pO2 Sodium Potassium Chloride Carbon Dioxide BUN 29 H Creatinine 3.5 H Glucose 109 H POC Glucose 137 H Lactic Acid Calcium 7.8 L Phosphorus Magnesium AST ALT Alkaline Phosphatase Troponin T C-Reactive Protein Total Protein Albumin LDL Cholesterol Direct HDL Cholesterol Urine Creatinine Hepatitis C Antibody Crossmatch Crossmatch [facility] 11/29/17 11/30/17 11/30/17 05:26 00:26 04:17 WBC RBC Hgb Hct MCV MCH MCHC RDW Plt Count Lymph % (Auto) [place] % (Auto) Eos % (Auto) Lymph # [place] # Eos # Seg Neutrophils % Seg Neuts % (Manual) Lymphocytes % (Manual) Monocytes % (Manual) Eosinophils % (Manual) Nucleated RBC % Seg Neutrophils # Seg Neutrophils # Man Lymphocytes # (Manual) Monocytes # (Manual) Eosinophils # (Manual) PT INR POC ABG pH POC ABG pCO2 POC ABG pO2 Sodium Potassium Chloride Carbon Dioxide BUN 38 H Creatinine 4.3 H Glucose 109 H POC Glucose 129 H 152 H Lactic Acid Calcium 7.8 L Phosphorus Magnesium AST ALT Alkaline Phosphatase Troponin T C-Reactive Protein Total Protein Albumin LDL Cholesterol Direct HDL Cholesterol Urine Creatinine Hepatitis C Antibody Crossmatch Crossmatch [facility] 11/30/17 11/30/17 11/30/17 12:17 16:23 23:35 WBC RBC Hgb Hct MCV MCH MCHC RDW Plt Count Lymph % (Auto) [place] % (Auto) Eos % (Auto) Lymph # [place] # Eos # Seg Neutrophils % Seg Neuts % (Manual) Lymphocytes % (Manual) Monocytes % (Manual) Eosinophils % (Manual) Nucleated RBC % Seg Neutrophils # Seg Neutrophils # Man Lymphocytes # (Manual) Monocytes # (Manual) Eosinophils # (Manual) PT INR POC ABG pH POC ABG pCO2 POC ABG pO2 Sodium Potassium Chloride Carbon Dioxide BUN Creatinine Glucose POC Glucose 170 H 114 H 122 H Lactic Acid Calcium Phosphorus Magnesium AST ALT Alkaline Phosphatase Troponin T C-Reactive Protein Total Protein Albumin LDL Cholesterol Direct HDL Cholesterol Urine Creatinine Hepatitis C Antibody Crossmatch Crossmatch [facility] 12/01/17 12/01/17 12/01/17 04:09 04:09 12:17 WBC 14.1 H RBC 3.32 L Hgb 8.6 L Hct 27.0 L MCV 81 L MCH 26 L MCHC RDW 18.7 H Plt Count Lymph % (Auto) 5.5 L [place] % (Auto) 9.7 H Eos % (Auto) Lymph # 0.8 L [place] # 1.4 H Eos # Seg Neutrophils % 82.9 H Seg Neuts % (Manual) Lymphocytes % (Manual) Monocytes % (Manual) Eosinophils % (Manual) Nucleated RBC % Seg Neutrophils # 11.7 H Seg Neutrophils # Man Lymphocytes # (Manual) Monocytes # (Manual) Eosinophils # (Manual) PT INR POC ABG pH POC ABG pCO2 POC ABG pO2 Sodium Potassium 3.4 L Chloride Carbon Dioxide BUN 21 H Creatinine 3.0 H Glucose 108 H POC Glucose 126 H Lactic Acid Calcium 8.0 L Phosphorus Magnesium AST ALT Alkaline Phosphatase Troponin T C-Reactive Protein Total Protein Albumin LDL Cholesterol Direct HDL Cholesterol Urine Creatinine Hepatitis C Antibody Crossmatch Crossmatch [facility] 12/02/17 12/03/17 12/03/17 23:46 02:52 05:54 WBC 17.2 H RBC 3.21 L Hgb 8.5 L Hct 25.8 L MCV 80 L MCH 26 L MCHC RDW 18.4 H Plt Count 128 L Lymph % (Auto) [place] % (Auto) Eos % (Auto) Lymph # [place] # Eos # Seg Neutrophils % Seg Neuts % (Manual) Lymphocytes % (Manual) Monocytes % (Manual) Eosinophils % (Manual) Nucleated RBC % Seg Neutrophils # Seg Neutrophils # Man Lymphocytes # (Manual) Monocytes # (Manual) Eosinophils # (Manual) PT INR POC ABG pH POC ABG pCO2 POC ABG pO2 Sodium Potassium Chloride Carbon Dioxide BUN Creatinine Glucose POC Glucose 125 H 107 H Lactic Acid Calcium Phosphorus Magnesium AST ALT Alkaline Phosphatase Troponin T C-Reactive Protein Total Protein Albumin LDL Cholesterol Direct HDL Cholesterol Urine Creatinine Hepatitis C Antibody Crossmatch Crossmatch [facility] 12/03/17 12/03/17 12/04/17 12:05 Unknown 12:26 WBC RBC Hgb Hct MCV MCH MCHC RDW Plt Count Lymph % (Auto) [place] % (Auto) Eos % (Auto) Lymph # [place] # Eos # Seg Neutrophils % Seg Neuts % (Manual) Lymphocytes % (Manual) Monocytes % (Manual) Eosinophils % (Manual) Nucleated RBC % Seg Neutrophils # Seg Neutrophils # Man Lymphocytes # (Manual) Monocytes # (Manual) Eosinophils # (Manual) PT INR POC ABG pH POC ABG pCO2 POC ABG pO2 Sodium Potassium Chloride Carbon Dioxide BUN 21 H Creatinine 2.8 H Glucose 113 H POC Glucose 106 H 119 H Lactic Acid Calcium Phosphorus Magnesium AST ALT Alkaline Phosphatase Troponin T C-Reactive Protein Total Protein Albumin LDL Cholesterol Direct HDL Cholesterol Urine Creatinine Hepatitis C Antibody Crossmatch Crossmatch [facility] 12/04/17 12/05/17 12/05/17 17:57 00:52 04:05 WBC RBC 2.96 L Hgb 7.7 L Hct 24.2 L MCV 82 L MCH 26 L MCHC RDW 18.8 H Plt Count 105 L Lymph % (Auto) 10.6 L [place] % (Auto) 12.1 H Eos % (Auto) 5.2 H Lymph # 1.1 L [place] # 1.3 H Eos # 0.5 H Seg Neutrophils % 71.3 H Seg Neuts % (Manual) Lymphocytes % (Manual) Monocytes % (Manual) Eosinophils % (Manual) Nucleated RBC % Seg Neutrophils # Seg Neutrophils # Man Lymphocytes # (Manual) Monocytes # (Manual) Eosinophils # (Manual) PT INR POC ABG pH POC ABG pCO2 POC ABG pO2 Sodium Potassium Chloride Carbon Dioxide BUN Creatinine Glucose POC Glucose 140 H 117 H Lactic Acid Calcium Phosphorus Magnesium AST ALT Alkaline Phosphatase Troponin T C-Reactive Protein Total Protein Albumin LDL Cholesterol Direct HDL Cholesterol Urine Creatinine Hepatitis C Antibody Crossmatch Crossmatch [facility] 12/05/17 12/05/17 12/06/17 04:05 22:50 08:18 WBC RBC 2.80 L Hgb 7.4 L Hct 23.0 L MCV 82 L MCH 27 L MCHC RDW 19.5 H Plt Count 125 L Lymph % (Auto) [place] % (Auto) Eos % (Auto) Lymph # [place] # Eos # Seg Neutrophils % Seg Neuts % (Manual) Lymphocytes % (Manual) Monocytes % (Manual) Eosinophils % (Manual) Nucleated RBC % Seg Neutrophils # Seg Neutrophils # Man Lymphocytes # (Manual) Monocytes # (Manual) Eosinophils # (Manual) PT INR POC ABG pH POC ABG pCO2 POC ABG pO2 Sodium Potassium Chloride 107.4 H Carbon Dioxide BUN Creatinine 2.5 H Glucose POC Glucose 112 H Lactic Acid Calcium 8.3 L Phosphorus Magnesium AST ALT Alkaline Phosphatase Troponin T C-Reactive Protein Total Protein Albumin LDL Cholesterol Direct HDL Cholesterol Urine Creatinine Hepatitis C Antibody Crossmatch Crossmatch [facility] 12/06/17 12/06/17 12/06/17 08:18 12:01 23:58 WBC RBC Hgb Hct MCV MCH MCHC RDW Plt Count Lymph % (Auto) [place] % (Auto) Eos % (Auto) Lymph # [place] # Eos # Seg Neutrophils % Seg Neuts % (Manual) Lymphocytes % (Manual) Monocytes % (Manual) Eosinophils % (Manual) Nucleated RBC % Seg Neutrophils # Seg Neutrophils # Man Lymphocytes # (Manual) Monocytes # (Manual) Eosinophils # (Manual) PT INR POC ABG pH POC ABG pCO2 POC ABG pO2 Sodium Potassium Chloride 108.4 H Carbon Dioxide BUN 28 H Creatinine 3.7 H Glucose 103 H POC Glucose 106 H 108 H Lactic Acid Calcium 8.0 L Phosphorus Magnesium AST ALT Alkaline Phosphatase Troponin T C-Reactive Protein Total Protein Albumin LDL Cholesterol Direct HDL Cholesterol Urine Creatinine Hepatitis C Antibody Crossmatch Crossmatch [facility] 12/07/17 12/07/17 12/07/17 05:47 05:47 18:03 WBC RBC 2.79 L Hgb 7.3 L Hct 22.8 L MCV 82 L MCH 26 L MCHC RDW 19.1 H Plt Count 101 L Lymph % (Auto) [place] % (Auto) Eos % (Auto) Lymph # [place] # Eos # Seg Neutrophils % Seg Neuts % (Manual) 72.0 H Lymphocytes % (Manual) 13.0 L Monocytes % (Manual) Eosinophils % (Manual) 9.0 H Nucleated RBC % Seg Neutrophils # Seg Neutrophils # Man Lymphocytes # (Manual) 1.1 L Monocytes # (Manual) Eosinophils # (Manual) 0.8 H PT INR POC ABG pH POC ABG pCO2 POC ABG pO2 Sodium 146 H Potassium Chloride 109.8 H Carbon Dioxide BUN 36 H Creatinine 4.0 H Glucose POC Glucose 143 H Lactic Acid Calcium 8.0 L Phosphorus Magnesium AST ALT Alkaline Phosphatase Troponin T C-Reactive Protein Total Protein Albumin LDL Cholesterol Direct HDL Cholesterol Urine Creatinine Hepatitis C Antibody Crossmatch Crossmatch [facility] 12/07/17 12/08/17 12/08/17 23:33 05:10 05:10 WBC RBC 2.91 L Hgb 7.5 L Hct 24.4 L MCV MCH 26 L MCHC 31 L RDW 19.7 H Plt Count 109 L Lymph % (Auto) [place] % (Auto) Eos % (Auto) Lymph # [place] # Eos # Seg Neutrophils % Seg Neuts % (Manual) Lymphocytes % (Manual) 11.0 L Monocytes % (Manual) Eosinophils % (Manual) 12.0 H Nucleated RBC % Seg Neutrophils # Seg Neutrophils # Man Lymphocytes # (Manual) 0.7 L Monocytes # (Manual) Eosinophils # (Manual) 0.7 H PT INR POC ABG pH POC ABG pCO2 POC ABG pO2 Sodium 147 H Potassium Chloride 110.4 H Carbon Dioxide BUN Creatinine 2.8 H Glucose POC Glucose 107 H Lactic Acid Calcium 7.8 L Phosphorus Magnesium AST ALT Alkaline Phosphatase Troponin T C-Reactive Protein Total Protein Albumin LDL Cholesterol Direct HDL Cholesterol Urine Creatinine Hepatitis C Antibody Crossmatch Crossmatch [facility] 12/09/17 12/09/17 12/09/17 04:18 04:18 12:16 WBC RBC Hgb 7.2 L Hct 23.2 L MCV MCH MCHC RDW Plt Count Lymph % (Auto) [place] % (Auto) Eos % (Auto) Lymph # [place] # Eos # Seg Neutrophils % Seg Neuts % (Manual) Lymphocytes % (Manual) Monocytes % (Manual) Eosinophils % (Manual) Nucleated RBC % Seg Neutrophils # Seg Neutrophils # Man Lymphocytes # (Manual) Monocytes # (Manual) Eosinophils # (Manual) PT INR POC ABG pH POC ABG pCO2 POC ABG pO2 Sodium 150 H Potassium Chloride 114.5 H Carbon Dioxide BUN 25 H Creatinine 3.3 H Glucose POC Glucose 142 H Lactic Acid Calcium 7.7 L Phosphorus Magnesium AST ALT Alkaline Phosphatase Troponin T C-Reactive Protein Total Protein Albumin LDL Cholesterol Direct HDL Cholesterol Urine Creatinine Hepatitis C Antibody Crossmatch Crossmatch [facility] 12/10/17 12/10/17 12/11/17 05:14 05:14 12:05 WBC RBC 2.81 L Hgb 7.4 L Hct 23.9 L MCV MCH 26 L MCHC 31 L RDW 19.1 H Plt Count 128 L Lymph % (Auto) [place] % (Auto) Eos % (Auto) Lymph # [place] # Eos # Seg Neutrophils % Seg Neuts % (Manual) 78.0 H Lymphocytes % (Manual) 8.0 L Monocytes % (Manual) Eosinophils % (Manual) 5.0 H Nucleated RBC % Seg Neutrophils # Seg Neutrophils # Man Lymphocytes # (Manual) 0.6 L Monocytes # (Manual) Eosinophils # (Manual) PT INR POC ABG pH POC ABG pCO2 POC ABG pO2 Sodium Potassium Chloride Carbon Dioxide BUN Creatinine 2.2 H Glucose POC Glucose 127 H Lactic Acid Calcium 7.8 L Phosphorus Magnesium AST ALT Alkaline Phosphatase Troponin T C-Reactive Protein Total Protein Albumin LDL Cholesterol Direct HDL Cholesterol Urine Creatinine Hepatitis C Antibody Crossmatch Crossmatch [facility] 12/11/17 12/11/17 12/11/17 15:26 18:36 23:40 WBC RBC Hgb Hct MCV MCH MCHC RDW Plt Count Lymph % (Auto) [place] % (Auto) Eos % (Auto) Lymph # [place] # Eos # Seg Neutrophils % Seg Neuts % (Manual) Lymphocytes % (Manual) Monocytes % (Manual) Eosinophils % (Manual) Nucleated RBC % Seg Neutrophils # Seg Neutrophils # Man Lymphocytes # (Manual) Monocytes # (Manual) Eosinophils # (Manual) PT INR POC ABG pH POC ABG pCO2 POC ABG pO2 Sodium Potassium 3.3 L Chloride Carbon Dioxide BUN Creatinine 1.6 H Glucose POC Glucose 106 H 110 H Lactic Acid Calcium 7.6 L Phosphorus Magnesium AST ALT Alkaline Phosphatase Troponin T C-Reactive Protein Total Protein Albumin LDL Cholesterol Direct HDL Cholesterol Urine Creatinine Hepatitis C Antibody Crossmatch Crossmatch [facility] 12/12/17 12/12/17 12/12/17 05:10 05:41 05:41 WBC RBC 3.17 L Hgb 8.1 L Hct 25.7 L MCV 81 L MCH 25 L MCHC 31 L RDW 19.2 H Plt Count Lymph % (Auto) [place] % (Auto) Eos % (Auto) Lymph # [place] # Eos # Seg Neutrophils % Seg Neuts % (Manual) 74.0 H Lymphocytes % (Manual) 6.0 L Monocytes % (Manual) Eosinophils % (Manual) 9.0 H Nucleated RBC % Seg Neutrophils # Seg Neutrophils # Man Lymphocytes # (Manual) 0.6 L Monocytes # (Manual) Eosinophils # (Manual) 0.9 H PT INR POC ABG pH POC ABG pCO2 POC ABG pO2 Sodium Potassium 3.5 L Chloride Carbon Dioxide BUN Creatinine 2.3 H Glucose 113 H POC Glucose 112 H Lactic Acid Calcium 7.5 L Phosphorus Magnesium AST ALT Alkaline Phosphatase Troponin T C-Reactive Protein Total Protein Albumin LDL Cholesterol Direct HDL Cholesterol Urine Creatinine Hepatitis C Antibody Crossmatch Crossmatch [facility] 12/13/17 12/13/17 12/13/17 06:14 12:00 17:37 WBC RBC Hgb Hct MCV MCH MCHC RDW Plt Count Lymph % (Auto) [place] % (Auto) Eos % (Auto) Lymph # [place] # Eos # Seg Neutrophils % Seg Neuts % (Manual) Lymphocytes % (Manual) Monocytes % (Manual) Eosinophils % (Manual) Nucleated RBC % Seg Neutrophils # Seg Neutrophils # Man Lymphocytes # (Manual) Monocytes # (Manual) Eosinophils # (Manual) PT INR POC ABG pH POC ABG pCO2 POC ABG pO2 Sodium Potassium Chloride Carbon Dioxide BUN Creatinine Glucose POC Glucose 130 H 133 H 136 H Lactic Acid Calcium Phosphorus Magnesium AST ALT Alkaline Phosphatase Troponin T C-Reactive Protein Total Protein Albumin LDL Cholesterol Direct HDL Cholesterol Urine Creatinine Hepatitis C Antibody Crossmatch Crossmatch [facility] 12/13/17 12/14/17 12/14/17 23:39 05:11 05:11 WBC RBC Hgb Hct MCV MCH MCHC RDW Plt Count Lymph % (Auto) [place] % (Auto) Eos % (Auto) Lymph # [place] # Eos # Seg Neutrophils % Seg Neuts % (Manual) Lymphocytes % (Manual) Monocytes % (Manual) Eosinophils % (Manual) Nucleated RBC % Seg Neutrophils # Seg Neutrophils # Man Lymphocytes # (Manual) Monocytes # (Manual) Eosinophils # (Manual) PT 15.4 H INR 1.17 H POC ABG pH POC ABG pCO2 POC ABG pO2 Sodium Potassium Chloride Carbon Dioxide 21 L BUN 26 H Creatinine 2.9 H Glucose POC Glucose 108 H Lactic Acid Calcium 7.2 L Phosphorus Magnesium AST ALT Alkaline Phosphatase Troponin T C-Reactive Protein Total Protein Albumin LDL Cholesterol Direct HDL Cholesterol Urine Creatinine Hepatitis C Antibody Crossmatch Crossmatch [facility] 12/14/17 12/14/17 12/14/17 12:00 16:01 18:24 WBC 12.9 H RBC 3.25 L Hgb 8.2 L Hct 26.2 L MCV 81 L MCH 25 L MCHC 31 L RDW 19.2 H Plt Count Lymph % (Auto) [place] % (Auto) Eos % (Auto) Lymph # [place] # Eos # Seg Neutrophils % Seg Neuts % (Manual) Lymphocytes % (Manual) Monocytes % (Manual) Eosinophils % (Manual) Nucleated RBC % Seg Neutrophils # Seg Neutrophils # Man Lymphocytes # (Manual) Monocytes # (Manual) Eosinophils # (Manual) PT INR POC ABG pH POC ABG pCO2 POC ABG pO2 Sodium Potassium Chloride Carbon Dioxide BUN Creatinine Glucose POC Glucose 138 H 120 H Lactic Acid Calcium Phosphorus Magnesium AST ALT Alkaline Phosphatase Troponin T C-Reactive Protein Total Protein Albumin LDL Cholesterol Direct HDL Cholesterol Urine Creatinine Hepatitis C Antibody Crossmatch Crossmatch [facility] 12/14/17 12/14/17 12/15/17 23:29 Unknown 05:57 WBC 12.5 H RBC 2.48 L Hgb 6.0 L Hct 24.4 L MCV 79 L MCH 24 L MCHC 30 L RDW 18.5 H Plt Count 131 L Lymph % (Auto) 7.0 L Barton % (Auto) 8.9 H Eos % (Auto) 8.3 H Lymph # 0.9 L [place] # 1.1 H Eos # 1.0 H Seg Neutrophils % 75.2 H Seg Neuts % (Manual) Lymphocytes % (Manual) Monocytes % (Manual) Eosinophils % (Manual) Nucleated RBC % Seg Neutrophils # 9.4 H Seg Neutrophils # Man Lymphocytes # (Manual) Monocytes # (Manual) Eosinophils # (Manual) PT INR POC ABG pH POC ABG pCO2 POC ABG pO2 Sodium Potassium Chloride Carbon Dioxide BUN Creatinine Glucose POC Glucose 110 H 113 H Lactic Acid Calcium Phosphorus Magnesium AST ALT Alkaline Phosphatase Troponin T C-Reactive Protein Total Protein Albumin LDL Cholesterol Direct HDL Cholesterol Urine Creatinine Hepatitis C Antibody Crossmatch Crossmatch [facility] 12/15/17 12/15/17 12/15/17 11:50 13:37 17:58 WBC RBC Hgb 7.3 L Hct 23.3 L MCV MCH MCHC RDW Plt Count Lymph % (Auto) [place] % (Auto) Eos % (Auto) Lymph # [place] # Eos # Seg Neutrophils % Seg Neuts % (Manual) Lymphocytes % (Manual) Monocytes % (Manual) Eosinophils % (Manual) Nucleated RBC % Seg Neutrophils # Seg Neutrophils # Man Lymphocytes # (Manual) Monocytes # (Manual) Eosinophils # (Manual) PT INR POC ABG pH POC ABG pCO2 POC ABG pO2 Sodium Potassium Chloride Carbon Dioxide BUN Creatinine Glucose POC Glucose 106 H 110 H Lactic Acid Calcium Phosphorus Magnesium AST ALT Alkaline Phosphatase Troponin T C-Reactive Protein Total Protein Albumin LDL Cholesterol Direct HDL Cholesterol Urine Creatinine Hepatitis C Antibody Crossmatch Crossmatch [facility] 12/15/17 12/16/17 12/16/17 23:30 04:55 05:14 WBC 13.2 H RBC 2.79 L Hgb 6.9 L Hct 22.2 L MCV 80 L MCH 25 L MCHC 31 L RDW 18.8 H Plt Count Lymph % (Auto) 7.3 L [place] % (Auto) 11.0 H Eos % (Auto) 8.2 H Lymph # 1.0 L [place] # 1.4 H Eos # 1.1 H Seg Neutrophils % 72.9 H Seg Neuts % (Manual) Lymphocytes % (Manual) Monocytes % (Manual) Eosinophils % (Manual) Nucleated RBC % Seg Neutrophils # 9.6 H Seg Neutrophils # Man Lymphocytes # (Manual) Monocytes # (Manual) Eosinophils # (Manual) PT INR POC ABG pH POC ABG pCO2 POC ABG pO2 Sodium 131 L D Potassium 2.8 L* D Chloride 93.2 L Carbon Dioxide BUN 24 H Creatinine 2.0 H Glucose POC Glucose 111 H Lactic Acid Calcium 7.7 L Phosphorus Magnesium AST ALT Alkaline Phosphatase Troponin T C-Reactive Protein Total Protein Albumin LDL Cholesterol Direct HDL Cholesterol Urine Creatinine Hepatitis C Antibody Crossmatch Crossmatch [facility] 12/16/17 12/16/17 12/16/17 13:01 17:32 23:39 WBC RBC Hgb Hct MCV MCH MCHC RDW Plt Count Lymph % (Auto) [place] % (Auto) Eos % (Auto) Lymph # [place] # Eos # Seg Neutrophils % Seg Neuts % (Manual) Lymphocytes % (Manual) Monocytes % (Manual) Eosinophils % (Manual) Nucleated RBC % Seg Neutrophils # Seg Neutrophils # Man Lymphocytes # (Manual) Monocytes # (Manual) Eosinophils # (Manual) PT INR POC ABG pH POC ABG pCO2 POC ABG pO2 Sodium Potassium Chloride Carbon Dioxide BUN Creatinine Glucose POC Glucose 121 H 107 H Lactic Acid Calcium Phosphorus Magnesium AST ALT Alkaline Phosphatase Troponin T C-Reactive Protein Total Protein Albumin LDL Cholesterol Direct HDL Cholesterol Urine Creatinine Hepatitis C Antibody Crossmatch Crossmatch [facility] See Detail 12/17/17 12/17/17 12/17/17 05:08 05:08 12:03 WBC 12.9 H RBC 2.88 L Hgb 7.2 L Hct 22.6 L MCV 78 L MCH 25 L MCHC RDW 18.3 H Plt Count Lymph % (Auto) 8.0 L [place] % (Auto) 8.6 H Eos % (Auto) Lymph # 1.0 L [place] # 1.1 H Eos # Seg Neutrophils % 79.3 H Seg Neuts % (Manual) Lymphocytes % (Manual) Monocytes % (Manual) Eosinophils % (Manual) Nucleated RBC % Seg Neutrophils # 10.2 H Seg Neutrophils # Man Lymphocytes # (Manual) Monocytes # (Manual) Eosinophils # (Manual) PT INR POC ABG pH POC ABG pCO2 POC ABG pO2 Sodium Potassium 3.4 L D Chloride Carbon Dioxide BUN Creatinine Glucose 104 H POC Glucose 109 H Lactic Acid Calcium 7.6 L Phosphorus Magnesium 1.30 L AST ALT Alkaline Phosphatase 177 H Troponin T C-Reactive Protein Total Protein Albumin 2.0 L LDL Cholesterol Direct HDL Cholesterol Urine Creatinine Hepatitis C Antibody Crossmatch Crossmatch [facility] 12/17/17 12/18/17 12/18/17 23:40 00:50 00:50 WBC 22.6 H RBC 2.76 L Hgb 6.7 L Hct 21.6 L MCV 78 L MCH 24 L MCHC 31 L RDW 18.4 H Plt Count Lymph % (Auto) [place] % (Auto) Eos % (Auto) Lymph # [place] # Eos # Seg Neutrophils % Seg Neuts % (Manual) Lymphocytes % (Manual) Monocytes % (Manual) Eosinophils % (Manual) Nucleated RBC % Seg Neutrophils # Seg Neutrophils # Man Lymphocytes # (Manual) Monocytes # (Manual) Eosinophils # (Manual) PT INR POC ABG pH POC ABG pCO2 POC ABG pO2 Sodium Potassium Chloride Carbon Dioxide BUN 22 H Creatinine 1.6 H Glucose 113 H POC Glucose 120 H Lactic Acid Calcium 7.8 L Phosphorus Magnesium 1.50 L AST ALT Alkaline Phosphatase Troponin T C-Reactive Protein Total Protein Albumin LDL Cholesterol Direct HDL Cholesterol Urine Creatinine Hepatitis C Antibody Crossmatch Crossmatch [facility] 12/18/17 12/18/17 12/18/17 05:34 12:00 18:07 WBC RBC Hgb Hct MCV MCH MCHC RDW Plt Count Lymph % (Auto) [place] % (Auto) Eos % (Auto) Lymph # [place] # Eos # Seg Neutrophils % Seg Neuts % (Manual) Lymphocytes % (Manual) Monocytes % (Manual) Eosinophils % (Manual) Nucleated RBC % Seg Neutrophils # Seg Neutrophils # Man Lymphocytes # (Manual) Monocytes # (Manual) Eosinophils # (Manual) PT INR POC ABG pH POC ABG pCO2 POC ABG pO2 Sodium Potassium Chloride Carbon Dioxide BUN Creatinine Glucose POC Glucose 132 H 136 H 122 H Lactic Acid Calcium Phosphorus Magnesium AST ALT Alkaline Phosphatase Troponin T C-Reactive Protein Total Protein Albumin LDL Cholesterol Direct HDL Cholesterol Urine Creatinine Hepatitis C Antibody Crossmatch Crossmatch [facility] 12/19/17 12/19/17 12/19/17 00:24 00:24 05:17 WBC 15.4 H RBC 2.41 L Hgb 6.1 L Hct 19.0 L* MCV 79 L MCH 25 L MCHC RDW 18.5 H Plt Count Lymph % (Auto) Barton % (Auto) Eos % (Auto) Lymph # Barton # Eos # Seg Neutrophils % Seg Neuts % (Manual) Lymphocytes % (Manual) Monocytes % (Manual) Eosinophils % (Manual) Nucleated RBC % Seg Neutrophils # Seg Neutrophils # Man Lymphocytes # (Manual) Monocytes # (Manual) Eosinophils # (Manual) PT INR POC ABG pH POC ABG pCO2 POC ABG pO2 Sodium Potassium 3.2 L Chloride Carbon Dioxide BUN Creatinine Glucose 117 H POC Glucose 132 H Lactic Acid Calcium 8.2 L Phosphorus Magnesium 1.50 L AST ALT Alkaline Phosphatase Troponin T C-Reactive Protein Total Protein Albumin LDL Cholesterol Direct HDL Cholesterol Urine Creatinine Hepatitis C Antibody Crossmatch Crossmatch [facility] 12/19/17 12/19/17 12/19/17 09:00 09:00 18:01 WBC 12.4 H RBC 2.86 L Hgb 7.2 L Hct 22.6 L MCV 79 L MCH 25 L MCHC RDW 17.2 H Plt Count Lymph % (Auto) 6.8 L Barton % (Auto) 12.6 H Eos % (Auto) Lymph # 0.8 L Barton # 1.6 H Eos # Seg Neutrophils % 80.1 H Seg Neuts % (Manual) Lymphocytes % (Manual) Monocytes % (Manual) Eosinophils % (Manual) Nucleated RBC % Seg Neutrophils # 10.0 H Seg Neutrophils # Man Lymphocytes # (Manual) Monocytes # (Manual) Eosinophils # (Manual) PT INR POC ABG pH POC ABG pCO2 POC ABG pO2 Sodium Potassium 3.1 L Chloride Carbon Dioxide BUN 22 H Creatinine Glucose 113 H POC Glucose 117 H Lactic Acid Calcium 8.3 L Phosphorus Magnesium AST 54 H ALT Alkaline Phosphatase 204 H Troponin T C-Reactive Protein Total Protein 5.8 L Albumin 2.0 L LDL Cholesterol Direct HDL Cholesterol Urine Creatinine Hepatitis C Antibody Crossmatch Crossmatch [facility]armed 12/19/17 12/20/17 12/20/17 23:49 05:53 19:00 WBC RBC 3.03 L Hgb 7.7 L Hct 23.7 L MCV 78 L MCH 25 L MCHC RDW 17.2 H Plt Count Lymph % (Auto) Barton % (Auto) Eos % (Auto) Lymph # Barton # Eos # Seg Neutrophils % Seg Neuts % (Manual) 74.0 H Lymphocytes % (Manual) 6.0 L Monocytes % (Manual) 17.0 H Eosinophils % (Manual) Nucleated RBC % Seg Neutrophils # Seg Neutrophils # Man Lymphocytes # (Manual) 0.5 L Monocytes # (Manual) 1.5 H Eosinophils # (Manual) PT INR POC ABG pH POC ABG pCO2 POC ABG pO2 Sodium Potassium Chloride Carbon Dioxide BUN Creatinine Glucose POC Glucose 125 H 124 H Lactic Acid Calcium Phosphorus Magnesium AST ALT Alkaline Phosphatase Troponin T C-Reactive Protein Total Protein Albumin LDL Cholesterol Direct HDL Cholesterol Urine Creatinine Hepatitis C Antibody Crossmatch Crossmatch [facility]armed 12/20/17 12/21/17 12/22/17 19:00 23:54 05:07 WBC RBC Hgb Hct MCV MCH MCHC RDW Plt Count Lymph % (Auto) Barton % (Auto) Eos % (Auto) Lymph # Barton # Eos # Seg Neutrophils % Seg Neuts % (Manual) Lymphocytes % (Manual) Monocytes % (Manual) Eosinophils % (Manual) Nucleated RBC % Seg Neutrophils # Seg Neutrophils # Man Lymphocytes # (Manual) Monocytes # (Manual) Eosinophils # (Manual) PT INR POC ABG pH POC ABG pCO2 POC ABG pO2 Sodium Potassium 3.3 L 2.9 L* Chloride Carbon Dioxide BUN 37 H 43 H Creatinine Glucose 114 H POC Glucose 109 H Lactic Acid Calcium 8.3 L 7.8 L Phosphorus 1.60 L Magnesium 1.50 L AST ALT Alkaline Phosphatase Troponin T C-Reactive Protein Total Protein Albumin LDL Cholesterol Direct HDL Cholesterol Urine Creatinine Hepatitis C Antibody Crossmatch Crossmatch [facility]armed 12/22/17 12/22/17 12/22/17 05:07 05:07 06:02 WBC 4.1 L RBC 3.09 L Hgb 7.7 L Hct 24.3 L MCV 79 L MCH 25 L MCHC RDW 17.8 H Plt Count Lymph % (Auto) Barton % (Auto) Eos % (Auto) Lymph # Barton # Eos # Seg Neutrophils % Seg Neuts % (Manual) Lymphocytes % (Manual) Monocytes % (Manual) Eosinophils % (Manual) Nucleated RBC % Seg Neutrophils # Seg Neutrophils # Man Lymphocytes # (Manual) Monocytes # (Manual) Eosinophils # (Manual) PT INR POC ABG pH POC ABG pCO2 POC ABG pO2 Sodium Potassium Chloride Carbon Dioxide BUN Creatinine Glucose POC Glucose 107 H Lactic Acid Calcium Phosphorus Magnesium 1.60 L AST ALT Alkaline Phosphatase Troponin T C-Reactive Protein Total Protein Albumin LDL Cholesterol Direct HDL Cholesterol Urine Creatinine Hepatitis C Antibody Crossmatch Crossmatch [facility]armed 12/22/17 12/22/17 12/22/17 10:50 12:02 17:32 WBC RBC Hgb Hct MCV MCH MCHC RDW Plt Count Lymph % (Auto) Barton % (Auto) Eos % (Auto) Lymph # Barton # Eos # Seg Neutrophils % Seg Neuts % (Manual) Lymphocytes % (Manual) Monocytes % (Manual) Eosinophils % (Manual) Nucleated RBC % Seg Neutrophils # Seg Neutrophils # Man Lymphocytes # (Manual) Monocytes # (Manual) Eosinophils # (Manual) PT INR POC ABG pH POC ABG pCO2 POC ABG pO2 Sodium Potassium Chloride Carbon Dioxide BUN Creatinine Glucose POC Glucose 129 H 111 H Lactic Acid Calcium Phosphorus Magnesium AST ALT Alkaline Phosphatase Troponin T C-Reactive Protein Total Protein Albumin LDL Cholesterol Direct HDL Cholesterol Urine Creatinine 55.8 H Hepatitis C Antibody Crossmatch Crossmatch P[place]armed 12/22/17 12/22/17 12/23/17 19:03 23:57 05:55 WBC RBC Hgb Hct MCV MCH MCHC RDW Plt Count Lymph % (Auto) Barton % (Auto) Eos % (Auto) Lymph # Barton # Eos # Seg Neutrophils % Seg Neuts % (Manual) Lymphocytes % (Manual) Monocytes % (Manual) Eosinophils % (Manual) Nucleated RBC % Seg Neutrophils # Seg Neutrophils # Man Lymphocytes # (Manual) Monocytes # (Manual) Eosinophils # (Manual) PT INR POC ABG pH POC ABG pCO2 POC ABG pO2 Sodium Potassium 3.4 L 2.9 L* Chloride Carbon Dioxide BUN 40 H Creatinine Glucose 107 H POC Glucose 128 H Lactic Acid Calcium 7.9 L Phosphorus Magnesium AST ALT Alkaline Phosphatase Troponin T C-Reactive Protein Total Protein Albumin LDL Cholesterol Direct HDL Cholesterol Urine Creatinine Hepatitis C Antibody Crossmatch Crossmatch [place]armed 12/23/17 12/23/17 12/23/17 05:55 05:55 11:59 WBC 3.8 L RBC 3.10 L Hgb 7.7 L Hct 25.5 L MCV 82 L MCH 25 L MCHC 30 L RDW 17.9 H Plt Count Lymph % (Auto) Barton % (Auto) Eos % (Auto) Lymph # Barton # Eos # Seg Neutrophils % Seg Neuts % (Manual) Lymphocytes % (Manual) Monocytes % (Manual) Eosinophils % (Manual) Nucleated RBC % Seg Neutrophils # Seg Neutrophils # Man Lymphocytes # (Manual) Monocytes # (Manual) Eosinophils # (Manual) PT INR POC ABG pH POC ABG pCO2 POC ABG pO2 Sodium Potassium Chloride Carbon Dioxide BUN Creatinine Glucose POC Glucose 115 H Lactic Acid Calcium Phosphorus Magnesium 1.60 L AST ALT Alkaline Phosphatase Troponin T C-Reactive Protein Total Protein Albumin LDL Cholesterol Direct HDL Cholesterol Urine Creatinine Hepatitis C Antibody Crossmatch Crossmatch [place]armed 12/23/17 12/24/17 12/24/17 22:48 00:29 03:17 WBC RBC Hgb Hct MCV MCH MCHC RDW Plt Count Lymph % (Auto) Barton % (Auto) Eos % (Auto) Lymph # Barton # Eos # Seg Neutrophils % Seg Neuts % (Manual) Lymphocytes % (Manual) Monocytes % (Manual) Eosinophils % (Manual) Nucleated RBC % Seg Neutrophils # Seg Neutrophils # Man Lymphocytes # (Manual) Monocytes # (Manual) Eosinophils # (Manual) PT INR POC ABG pH POC ABG pCO2 POC ABG pO2 Sodium 146 H Potassium 2.9 L* 3.4 L Chloride Carbon Dioxide BUN 36 H Creatinine 0.7 L Glucose POC Glucose 111 H Lactic Acid Calcium 7.5 L Phosphorus Magnesium 1.60 L AST 76 H ALT 59 H Alkaline Phosphatase 294 H Troponin T C-Reactive Protein Total Protein 5.8 L Albumin 2.2 L LDL Cholesterol Direct HDL Cholesterol Urine Creatinine Hepatitis C Antibody Crossmatch Crossmatch [place]armed 12/24/17 12/24/17 12/24/17 03:17 05:14 17:05 WBC RBC 3.03 L Hgb 7.6 L Hct 23.7 L MCV 78 L MCH 25 L MCHC RDW 17.8 H Plt Count Lymph % (Auto) Barton % (Auto) Eos % (Auto) Lymph # Barton # Eos # Seg Neutrophils % Seg Neuts % (Manual) Lymphocytes % (Manual) Monocytes % (Manual) Eosinophils % (Manual) Nucleated RBC % Seg Neutrophils # Seg Neutrophils # Man Lymphocytes # (Manual) Monocytes # (Manual) Eosinophils # (Manual) PT INR POC ABG pH POC ABG pCO2 POC ABG pO2 Sodium Potassium Chloride Carbon Dioxide BUN Creatinine Glucose POC Glucose 127 H 132 H Lactic Acid Calcium Phosphorus Magnesium AST ALT Alkaline Phosphatase Troponin T C-Reactive Protein Total Protein Albumin LDL Cholesterol Direct HDL Cholesterol Urine Creatinine Hepatitis C Antibody Crossmatch Crossmatch [place]armed 12/25/17 12/25/17 12/25/17 00:03 04:34 06:25 WBC RBC Hgb Hct MCV MCH MCHC RDW Plt Count Lymph % (Auto) Barton % (Auto) Eos % (Auto) Lymph # Barton # Eos # Seg Neutrophils % Seg Neuts % (Manual) Lymphocytes % (Manual) Monocytes % (Manual) Eosinophils % (Manual) Nucleated RBC % Seg Neutrophils # Seg Neutrophils # Man Lymphocytes # (Manual) Monocytes # (Manual) Eosinophils # (Manual) PT INR POC ABG pH POC ABG pCO2 POC ABG pO2 Sodium Potassium Chloride Carbon Dioxide BUN 30 H Creatinine 0.6 L Glucose 114 H POC Glucose 128 H 136 H Lactic Acid Calcium 7.5 L Phosphorus Magnesium AST 84 H ALT 82 H Alkaline Phosphatase 322 H Troponin T C-Reactive Protein Total Protein 6.0 L Albumin 2.3 L LDL Cholesterol Direct HDL Cholesterol Urine Creatinine Hepatitis C Antibody Crossmatch Crossmatch [facility]armed 12/25/17 12/25/17 12/26/17 12:02 18:28 00:03 WBC RBC Hgb Hct MCV MCH MCHC RDW Plt Count Lymph % (Auto) Barton % (Auto) Eos % (Auto) Lymph # Barton # Eos # Seg Neutrophils % Seg Neuts % (Manual) Lymphocytes % (Manual) Monocytes % (Manual) Eosinophils % (Manual) Nucleated RBC % Seg Neutrophils # Seg Neutrophils # Man Lymphocytes # (Manual) Monocytes # (Manual) Eosinophils # (Manual) PT INR POC ABG pH POC ABG pCO2 POC ABG pO2 Sodium Potassium Chloride Carbon Dioxide BUN Creatinine Glucose POC Glucose 158 H 113 H 117 H Lactic Acid Calcium Phosphorus Magnesium AST ALT Alkaline Phosphatase Troponin T C-Reactive Protein Total Protein Albumin LDL Cholesterol Direct HDL Cholesterol Urine Creatinine Hepatitis C Antibody Crossmatch Crossmatch [place]armed 12/26/17 12/26/17 12/26/17 04:26 06:35 08:47 WBC RBC Hgb Hct MCV MCH MCHC RDW Plt Count Lymph % (Auto) Barton % (Auto) Eos % (Auto) Lymph # Barton # Eos # Seg Neutrophils % Seg Neuts % (Manual) Lymphocytes % (Manual) Monocytes % (Manual) Eosinophils % (Manual) Nucleated RBC % Seg Neutrophils # Seg Neutrophils # Man Lymphocytes # (Manual) Monocytes # (Manual) Eosinophils # (Manual) PT INR POC ABG pH POC ABG pCO2 POC ABG pO2 Sodium Potassium 5.4 H D 3.3 L D Chloride Carbon Dioxide 21 L BUN 39 H Creatinine 0.7 L Glucose 121 H POC Glucose 122 H Lactic Acid Calcium 7.8 L Phosphorus Magnesium AST 144 H ALT 98 H Alkaline Phosphatase 330 H Troponin T C-Reactive Protein Total Protein 6.1 L Albumin 2.1 L LDL Cholesterol Direct HDL Cholesterol Urine Creatinine Hepatitis C Antibody Crossmatch Crossmatch [place]armed 12/26/17 12:29 WBC RBC Hgb Hct MCV MCH MCHC RDW Plt Count Lymph % (Auto) Barton % (Auto) Eos % (Auto) Lymph # Barton # Eos # Seg Neutrophils % Seg Neuts % (Manual) Lymphocytes % (Manual) Monocytes % (Manual) Eosinophils % (Manual) Nucleated RBC % Seg Neutrophils # Seg Neutrophils # Man Lymphocytes # (Manual) Monocytes # (Manual) Eosinophils # (Manual) PT INR POC ABG pH POC ABG pCO2 POC ABG pO2 Sodium Potassium Chloride Carbon Dioxide BUN Creatinine Glucose POC Glucose 128 H Lactic Acid Calcium Phosphorus Magnesium AST ALT Alkaline Phosphatase Troponin T C-Reactive Protein Total Protein Albumin LDL Cholesterol Direct HDL Cholesterol Urine Creatinine Hepatitis C Antibody Crossmatch Crossmatch [facility]armed Chest x-ray: report reviewed, image reviewed
--- NOTE | 2017-12-26 15:01 | Progress Note ---
Assessment and Plan Assessment and plan: Admitted 11/12/17 Mr. 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 He had a Carotid doppler done that revealed a right ICA 50-79% stenosis. CTA of the neck revealed 80% stenosis of the right ICA with probable 50% stenosis of the origin of the right common carotid artery. His symptoms were thought to be due to the Carotid artery stenosis which was disheartening since he was on Aspirin and plavix. He was scheduled for right CEA but needed Cardiac clearance. He underwent stress test on 10/05/17 and Bobbin Fixer stated he was stable for non-cardiac history, low to moderate perioperative risk. So, he underwent right carotid enarterectomy on 10/09/17. Following the surgery, he developed recurrent left sided weakness/hemiparesis and was taken back to the OR on 10/10/17 for Open Thrombectomy of Right Internal Carotid Artery and Injection of tPA into the Artery. CT head obtained 2 days after surgery on 10/12 showed massive right cerebral hemisphere acute CVA with midline shift. He was subsequently discharged on 11/10/17 to [facility] but returned to [facility] ED and was re-admitted on 11/12/17 for suspected sepsis due to Aspiration post-obstructive pneumonia with suspected mucus plug and subsequently intubated on admission. On 11/20/17, patient went for Tracheostomy by Dr. Hughes, ENT. Then on 11/21/17 patient went into shock, most likely sepsis as WBC went up to 38.2k; initially thought to be due worsening aspiration pneumonia but it was discovered that he had a dislodged PEG tube from the Nursing, most likely present on admission, which lead to the shock from severe intra-abdominal infection/ peritonitis requiring IR drainage and General surgery drainage. Peritonitis - from dislodged peg tube, hence not present - has completed abx - s/p multiple intraabdominal drainages placed by IR and GS. -awaiting abdominal wounds to heal prior to placement of new PEG tube -Acute hypoxic respiratory failure due to Pneumonia on MV>96 hours s/p Tracheostomy 11/20/17: continue trache collar -septic shock, resolved -Aspiration pneumonia, resolved -Acute encephalopathy: currently at new baseline, non verbal, moves right side on command -Hypernatremia: improved with free water -Hypokalemia ; resolved hypomagnesemia: replace and monitor closely -ARF vasomotor nephropathy, poa: IV fluids, monitor bmp closely, received HD and now has renal recovery -Dysphagia with aspiration: s/p peg tube -Acute on chronic blood loss anemia w/Coffee-ground material from peg tube: GI is following, treat with ppi iv bid, EGD done 11/18/17 showed 8 mm cratered, 10 mm linear ulcer proximal lesser curvature with erythema but no other bleeding stigmata, gastritis and 4-5 cm hiatal hernia -Advance care planning: full code -Disposition: continue inpatient care, LTAC declined to accept patient without PEG tube. D/W Gen Sx, awaiting abdominal wounds to heal, then new peg tube prior to snf placement KILEY is daughter, Eugenie [phone], History Interval history: patient is calm and obeys simple commands no events, no agitation, no fevers no seizures, Hospitalist Physical - Physical exam Narrative exam: General appearance: Present:appears chronically ill - EENT Eyes: Present: PERRL - Neck Neck: Present: supple - Respiratory Respiratory effort: labored Respiratory: bilateral: rales - Cardiovascular Rhythm: regular Heart Sounds: Present: S1 & S2 - Extremities Extremities: no ischemia - Abdominal General gastrointestinal: soft, non-tender - Integumentary Integumentary: Present: clear, warm, dry - Psychiatric Psychiatric: non verbal, trached to trache collar - Neurologic Neurologic: left hemiplegia, able to move right side on command, but right side is weak condom cath in place - Constitutional Vitals: Temp Pulse Resp BP Pulse Ox 98.2 F 114 H 28 H 155/93 98 12/26/17 12:00 12/26/17 14:00 12/26/17 14:00 12/26/17 14:00 12/26/17 14:00 General appearance: Present: no acute distress Results - Labs CBC & Chem 7: 12/28/17 04:59 12/30/17 04:46 Labs: Laboratory Last Values WBC 4.6 K/mm3 (4.5-11.0) 12/24/17 03:17 RBC 3.03 M/mm3 (3.65-5.03) L 10/04/18 03:17 Hgb 7.6 gm/dl (11.8-15.2) L 12/24/17 03:17 Hct 23.7 % (35.5-45.6) L 12/24/17 03:17 MCV 78 fl (84-94) L 12/24/17 03:17 MCH 25 pg (28-32) L 12/24/17 03:17 MCHC 32 % (32-34) 12/24/17 03:17 RDW 17.8 % (13.2-15.2) H 12/24/17 03:17 Plt Count 218 K/mm3 (140-440) 12/24/17 03:17 Lymph % (Auto) 6.8 % (13.4-35.0) L 12/19/17 09:00 Yancey % (Auto) Metallurgical Analyst 12/20/17 19:00 Eos % (Auto) 0.2 % (0.0-4.3) 12/19/17 09:00 Baso % (Auto) 0.3 % (0.0-1.8) 12/19/17 09:00 Lymph # 0.8 K/mm3 (1.2-5.4) L 12/19/17 09:00 Yancey # 1.6 K/mm3 (0.0-0.8) H 12/19/17 09:00 Eos # 0.0 K/mm3 (0.0-0.4) 12/19/17 09:00 Baso # 0.0 K/mm3 (0.0-0.1) 12/19/17 09:00 Add Manual Diff Complete 12/20/17 19:00 Total Counted 100 12/20/17 19:00 Seg Neutrophils % 80.1 % (40.0-70.0) H 12/19/17 09:00 Seg Neuts % (Manual) 74.0 % (40.0-70.0) H 12/20/17 19:00 Band Neutrophils % 2.0 % 12/20/17 19:00 Lymphocytes % (Manual) 6.0 % (13.4-35.0) L 12/20/17 19:00 Reactive Lymphs % (Man) 0 % 12/20/17 19:00 Monocytes % (Manual) 17.0 % (0.0-7.3) H 12/20/17 19:00 Eosinophils % (Manual) 1.0 % (0.0-4.3) 12/20/17 19:00 Basophils % (Manual) 0 % (0.0-1.8) 12/20/17 19:00 Metamyelocytes % 0 % 12/20/17 19:00 Myelocytes % 0 % 12/20/17 19:00 Promyelocytes % 0 % 12/20/17 19:00 Blast Cells % 0 % 12/20/17 19:00 Nucleated RBC % Not Reportable 12/20/17 19:00 Seg Neutrophils # 10.0 K/mm3 (1.8-7.7) H 12/19/17 09:00 Seg Neutrophils # Man 6.4 K/mm3 (1.8-7.7) 12/20/17 19:00 Band Neutrophils # 0.2 K/mm3 12/20/17 19:00 Lymphocytes # (Manual) 0.5 K/mm3 (1.2-5.4) L 12/20/17 19:00 Abs React Lymphs (Man) 0.0 K/mm3 12/20/17 19:00 Monocytes # (Manual) 1.5 K/mm3 (0.0-0.8) H 12/20/17 19:00 Eosinophils # (Manual) 0.1 K/mm3 (0.0-0.4) 12/20/17 19:00 Basophils # (Manual) 0.0 K/mm3 (0.0-0.1) 12/20/17 19:00 Metamyelocytes # 0.0 K/mm3 12/20/17 19:00 Myelocytes # 0.0 K/mm3 12/20/17 19:00 Promyelocytes # 0.0 K/mm3 12/20/17 19:00 Blast Cells # 0.0 K/mm3 12/20/17 19:00 WBC Morphology Not Reportable 12/20/17 19:00 Hypersegmented Neuts Not Reportable 12/20/17 19:00 Hyposegmented Neuts Not Reportable 12/20/17 19:00 Hypogranular Neuts Not Reportable 12/20/17 19:00 Smudge Cells Not Reportable 12/20/17 19:00 Toxic Granulation Not Reportable 12/20/17 19:00 Toxic Vacuolation Not Reportable 12/20/17 19:00 Dohle Bodies Not Reportable 12/20/17 19:00 Pelger-Huet Anomaly Not Reportable 12/20/17 19:00 Evangelina Rods Not Reportable 12/20/17 19:00 Platelet Estimate Appears normal 12/20/17 19:00 Clumped Platelets Not Reportable 12/20/17 19:00 Plt Clumps, EDTA Not Reportable 12/20/17 19:00 Large Platelets Not Reportable 12/20/17 19:00 Giant Platelets Not Reportable 12/20/17 19:00 Platelet Satelliting Not Reportable 12/20/17 19:00 Plt Morphology Comment Not Reportable 12/20/17 19:00 RBC Morphology Not Reportable 12/20/17 19:00 Dimorphic RBCs Not Reportable 12/20/17 19:00 Polychromasia Not Reportable 12/20/17 19:00 Hypochromasia 2+ 12/20/17 19:00 Poikilocytosis Few 12/20/17 19:00 Anisocytosis 1+ 12/20/17 19:00 Microcytosis 1+ 12/20/17 19:00 Macrocytosis Not Reportable 12/20/17 19:00 Spherocytes Not Reportable 12/20/17 19:00 Pappenheimer Bodies Not Reportable 12/20/17 19:00 Sickle Cells Not Reportable 12/20/17 19:00 Target Cells Not Reportable 12/20/17 19:00 Tear Drop Cells Not Reportable 12/20/17 19:00 Ovalocytes Few 12/20/17 19:00 Stomatocytes 1+ 12/12/17 05:41 Helmet Cells Not Reportable 12/20/17 19:00 [place] Bodies Not Reportable 12/20/17 19:00 [place] Rings Not Reportable 12/20/17 19:00 [place] Cells Not Reportable 12/20/17 19:00 Bite Cells Not Reportable 12/20/17 19:00 Crenated Cell Not Reportable 12/20/17 19:00 Elliptocytes Not Reportable 12/20/17 19:00 Acanthocytes (Spur) Not Reportable 12/20/17 19:00 Rouleaux Not Reportable 12/20/17 19:00 Hemoglobin C Crystals Not Reportable 12/20/17 19:00 Schistocytes Not Reportable 12/20/17 19:00 Malaria parasites Not Reportable 12/20/17 19:00 [place] Bodies Not Reportable 12/20/17 19:00 Hem Pathologist Commnt No 12/20/17 19:00 PT 15.4 Sec. (12.2-14.9) H 12/14/17 05:11 INR 1.17 (0.87-1.13) H 12/14/17 05:11 APTT 33.8 Sec. (24.2-36.6) 11/26/17 06:29 POC ABG pH 7.505 (7.35-7.45) H 11/23/17 04:56 POC ABG pCO2 26.3 (35-45) L 11/23/17 04:56 POC ABG pO2 100 (80-105) 11/23/17 04:56 POC ABG HCO3 20.8 11/23/17 04:56 POC ABG Total CO2 22 11/23/17 04:56 POC ABG O2 Sat 98 11/23/17 04:56 POC ABG Base Excess -2 11/23/17 04:56 FiO2 30 % 11/23/17 04:56 Sodium 143 mmol/L (137-145) 12/26/17 04:26 Potassium 3.3 mmol/L (3.6-5.0) L D 12/26/17 08:47 Chloride 102.9 mmol/L (98-107) 12/26/17 04:26 Carbon Dioxide 21 mmol/L (22-30) L 12/26/17 04:26 Anion Gap 25 mmol/L 12/26/17 04:26 BUN 39 mg/dL (9-20) H 12/26/17 04:26 Creatinine 0.7 mg/dL (0.8-1.5) L 12/26/17 04:26 Estimated GFR > 60 ml/min 12/26/17 04:26 BUN/Creatinine Ratio 56 % 12/26/17 04:26 Glucose 121 mg/dL (75-100) H 12/26/17 04:26 POC Glucose 128 (70-105) H 12/26/17 12:29 Lactic Acid 1.80 mmol/L (0.7-2.0) 11/27/17 04:06 Calcium 7.8 mg/dL (8.4-10.2) L 12/26/17 04:26 Phosphorus 1.60 mg/dL (2.5-4.5) L 12/20/17 19:00 Magnesium 1.80 mg/dL (1.7-2.3) 12/26/17 04:26 Total Bilirubin 0.30 mg/dL (0.1-1.2) 12/26/17 04:26 AST 144 units/L (5-40) H 12/26/17 04:26 ALT 98 units/L (7-56) H 12/26/17 04:26 Alkaline Phosphatase 330 units/L (35-129) H 12/26/17 04:26 Total Creatine Kinase 84 units/L (55-170) 11/12/17 20:03 CK-MB (CK-2) < 1.0 ng/mL (0.0-4.0) 11/12/17 20:03 CK-MB (CK-2) Rel Index 1.1 (0-4) 11/12/17 20:03 Troponin T 0.098 ng/mL (0.00-0.029) H 11/12/17 Unknown C-Reactive Protein 25.70 mg/dL (0.00-1.30) H 11/11/17 23:20 NT-Pro-B Natriuret Pep 792.4 pg/mL (0-900) 11/11/17 23:20 Total Protein 6.1 g/dL (6.3-8.2) L 12/26/17 04:26 Albumin 2.1 g/dL (3.9-5) L 12/26/17 04:26 Albumin/Globulin Ratio 0.5 % 12/26/17 04:26 Triglycerides 86 mg/dL (2-149) 11/11/17 23:20 Cholesterol 82 mg/dL (50-199) 11/11/17 23:20 LDL Cholesterol Direct 42 mg/dL (50-130) L 11/11/17 23:20 HDL Cholesterol 24 mg/dL (40-59) L 11/11/17 23:20 Cholesterol/HDL Ratio 3.41 % 11/11/17 23:20 Lipase 30 units/L (13-60) 11/11/17 23:20 Urine Color Nicole (Yellow) 11/11/17 23:09 Urine Turbidity Cloudy (Clear) 11/11/17 23:09 Urine pH 5.0 (5.0-7.0) 11/11/17 23:09 Ur Specific [place] 1.025 (1.003-1.030) 11/11/17 23:09 Urine Protein 100 mg/dl mg/dL (Negative) 11/11/17 23:09 Urine Glucose (UA) 50 mg/dL (Negative) 11/11/17 23:09 Urine Ketones Neg mg/dL (Negative) 11/11/17 23:09 Urine Blood Neg (Negative) 11/11/17 23:09 Urine Nitrite Neg (Negative) 11/11/17 23:09 Urine Bilirubin Neg (Negative) 11/11/17 23:09 Urine Urobilinogen 4.0 mg/dL (<2.0) 11/11/17 23:09 Ur Leukocyte Esterase Neg (Negative) 11/11/17 23:09 Urine WBC (Auto) 5.0 /HPF (0.0-6.0) 11/11/17 23:09 Urine RBC (Auto) 4.0 /HPF (0.0-6.0) 11/11/17 23:09 Urine Bacteria (Auto) 3+ /HPF (Negative) 11/11/17 23:09 Amorphous Crystals 3+ 11/11/17 23:09 Hyaline Casts 76 /LPF 11/11/17 23:09 Urine Mucus 2+ /HPF 11/11/17 23:09 Urine Total Volume 1350 12/22/17 10:50 Urine Creatinine 55.8 mg/dL (0.1-20.0) H 12/22/17 10:50 Ur Creatinine 24 Hour 0.8 (0.8-2.8) 12/22/17 10:50 Hepatitis A IgM Ab Non-reactive (NonReactive) 11/22/17 19:45 Hep Bs Antigen Non-reactive (Negative) 11/22/17 19:45 Hep B Core IgM Ab Non-reactive (NonReactive) 11/22/17 19:45 Hepatitis C Antibody Reactive (NonReactive) A 11/22/17 19:45 Blood Type A POSITIVE 12/16/17 13:01 Antibody Screen Positive 12/16/17 13:01 SANTANA Antibody Screen Cancelled 12/16/17 13:01 Antibody Identification Cold Antibody 12/16/17 13:01 Crossmatch See Detail 12/16/17 13:01 Crossmatch Prewarmed See Detail 12/16/17 13:01
[2017-12-26] MEDS: NACL 0.45% 1000 ML 1,000 ML IV SCH (18:51)
[2017-12-27] MEDS: NACL 0.45% 1000 ML 1,000 ML IV SCH (05:25)
[2017-12-27 08:11] LABS: Alanine Aminotransferase 80 units/L (7-56); Albumin 2.1 g/dL (3.9-5); BUN/Creatinine Ratio 40; Blood Urea Nitrogen 20 mg/dL (9-20); Calcium 7.7 mg/dL (8.4-10.2); Hemolysis Index 5
[2017-12-27] MEDS: PREVACID SOLUTAB FEEDTUBE SCH ×2 (09:19→22:09)
[2017-12-27] MEDS: LOPRESSOR PO SCH ×2 (09:20→22:09)
[2017-12-27] MEDS ORDERED: MAGNESIUM SULFATE 4GM/100ML 4 GM/100 ML BAG IV ONE (09:32)
[2017-12-27] MEDS ORDERED: NACL 0.45% 1000 ML 1,000 ML with KCL 20 MEQ IV SCH (09:34)
--- NOTE | 2017-12-27 09:35 | Progress Note ---
Assessment and Plan Assessment * Acute kidney injury secondary to ATN --Intermittent HD started on 11/23/17 * Sepsis secondary to peritonitis/PEG malpositioning --RUQ/LUQ drains: Enterobacter, Heather (non albicans) * Aspiration pneumonitis related to above * Anemia * Acute CVA * Carotid artery disease s/p CEA * Encephalopathy Plan: * off dialysis. follow up 24hr crcl 65ml/min * vasc cath needs to be removed * replete k and mag prn, add mag ox today * 1/2 ns with kcl * Abx per ID * prbcs prn * Strict I/O * Avoid potential nephrptoxins * Dose medications for renal function * Replete lytes prn * Avoid nephrotoxins Subjective Date of service: 12/27/17 Principal diagnosis: Acute hypoxic respiratory failure, s/p Trach Interval history: new consult noted, last seen 11/09 with normal renal function Objective - Exam Narrative Exam: Constitutional: lethargic, other (intubated) Eyes: non-icteric ENT: oropharynx moist, other (ETT at 24 cm) Neck: supple, no JVD Ascultation: Bilateral: rhonchi (bilateral LT >>RT) Cardiovascular: regular rate and rhythm, other (tachycardic) Gastrointestinal: normoactive bowel sounds, non-distended Integumentary: normal Extremities: no cyanosis, no edema, other (RT femoral line in place) Neurologic: unable to assess (opens eyes spontaneously but does not follow commands . ) - Vital Signs Vital signs: Vital Signs - 12hr 12/26/17 12/26/17 12/26/17 22:00 23:00 23:38 Temperature Pulse Rate 100 H 102 H 105 H Pulse Rate [ 105 H Right From Monitor] Respiratory 32 H 29 H 25 H Rate Blood Pressure 146/88 143/102 143/102 O2 Sat by Pulse 98 99 98 Oximetry O2 Sat by Pulse Oximetry [ Assessment] 12/27/17 12/27/17 12/27/17 00:00 01:00 02:00 Temperature 98.4 F Pulse Rate 102 H 103 H 127 H Pulse Rate [ Right From Monitor] Respiratory 32 H 31 H 27 H Rate Blood Pressure 154/87 127/82 127/82 O2 Sat by Pulse 97 96 96 Oximetry O2 Sat by Pulse Oximetry [ Assessment] 12/27/17 12/27/17 12/27/17 03:00 04:00 04:37 Temperature 97.6 F Pulse Rate 114 H 107 H Pulse Rate [ Right From Monitor] Respiratory 28 H Rate Blood Pressure 146/89 119/82 O2 Sat by Pulse 98 Oximetry O2 Sat by Pulse 100 Oximetry [ Assessment] 12/27/17 12/27/17 12/27/17 05:00 06:00 07:00 Temperature Pulse Rate 104 H 104 H 101 H Pulse Rate [ Right From Monitor] Respiratory 31 H 31 H 26 H Rate Blood Pressure 122/85 122/86 141/83 O2 Sat by Pulse 99 Oximetry O2 Sat by Pulse Oximetry [ Assessment] 12/27/17 12/27/17 12/27/17 07:21 07:22 07:55 Temperature Pulse Rate 104 H Pulse Rate [ Right From Monitor] Respiratory Rate Blood Pressure O2 Sat by Pulse 100 Oximetry O2 Sat by Pulse 100 Oximetry [ Assessment] 12/27/17 12/27/17 08:00 09:20 Temperature Pulse Rate 104 H 101 H Pulse Rate [ Right From Monitor] Respiratory 28 H Rate Blood Pressure 141/91 152/92 O2 Sat by Pulse 100 Oximetry O2 Sat by Pulse Oximetry [ Assessment] - Lab 12/24/17 03:17 12/27/17 07:34 Most recent lab results Calcium 7.7 mg/dL (8.4-10.2) L 12/27/17 07:34 Phosphorus 1.60 mg/dL (2.5-4.5) L 12/20/17 19:00 Magnesium 1.30 mg/dL (1.7-2.3) L 12/27/17 07:34 Urine Creatinine 55.8 mg/dL (0.1-20.0) H 12/22/17 10:50
[2017-12-27] MEDS ORDERED: POTASSIUM CHLORIDE FEEDTUBE SCH (10:00)
[2017-12-27] MEDS: MAG-OX PO SCH ×2 (10:33→22:09)
[2017-12-27] MEDS ORDERED: NACL 0.9% 1000 ML 1,000 ML with KCL 80 MEQ IV ONE (12:55)
--- NOTE | 2017-12-27 12:56 | Progress Note ---
Assessment and Plan Assessment and plan: Admitted 11/12/17 Mr. 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 He had a Carotid doppler done that revealed a right ICA 50-79% stenosis. CTA of the neck revealed 80% stenosis of the right ICA with probable 50% stenosis of the origin of the right common carotid artery. His symptoms were thought to be due to the Carotid artery stenosis which was disheartening since he was on Aspirin and plavix. He was scheduled for right CEA but needed Cardiac clearance. He underwent stress test on 10/05/17 and [employer] stated he was stable for non-cardiac history, low to moderate perioperative risk. So, he underwent right carotid enarterectomy on 10/09/17. Following the surgery, he developed recurrent left sided weakness/hemiparesis and was taken back to the OR on 10/10/17 for Open Thrombectomy of Right Internal Carotid Artery and Injection of tPA into the Artery. CT head obtained 2 days after surgery on 10/12 showed massive right cerebral hemisphere acute CVA with midline shift. He was subsequently discharged on 11/10/17 to [facility] but returned to [facility] and was re-admitted on 11/12/17 for suspected sepsis due to Aspiration post-obstructive pneumonia with suspected mucus plug and subsequently intubated on admission. On 11/20/17, patient went for Tracheostomy by Dr. Hughes, ENT. Then on 11/21/17 patient went into shock, most likely sepsis as WBC went up to 38.2k; initially thought to be due worsening aspiration pneumonia but it was discovered that he had a dislodged PEG tube from the Nursing, most likely present on admission, which lead to the shock from severe intra-abdominal infection/ peritonitis requiring IR drainage and General surgery drainage. Peritonitis - from dislodged peg tube, hence not present - has completed abx - s/p multiple intraabdominal drainages placed by IR and GS. -awaiting abdominal wounds to heal prior to placement of new PEG tube -Acute hypoxic respiratory failure due to Pneumonia on MV>96 hours s/p Tracheostomy 11/20/17: continue trache collar -septic shock, resolved -Aspiration pneumonia, resolved -Acute encephalopathy: currently at new baseline, non verbal, moves right side on command -Hypernatremia: improved with free water -Hypokalemia ; replaced hypomagnesemia: replace and monitor closely -ARF vasomotor nephropathy, poa: IV fluids, monitor bmp closely, received HD and now has renal recovery -Dysphagia with aspiration: s/p peg tube -Acute on chronic blood loss anemia w/Coffee-ground material from peg tube: GI is following, treat with ppi iv bid, EGD done 11/18/17 showed 8 mm cratered, 10 mm linear ulcer proximal lesser curvature with erythema but no other bleeding stigmata, gastritis and 4-5 cm hiatal hernia -Advance care planning: full code -Disposition: continue inpatient care, LTAC declined to accept patient without PEG tube. D/W Gen Sx, awaiting abdominal wounds to heal, then new peg tube prior to snf placement KILEY is daughter, Eugenie [phone], History Interval history: patient is calm and obeys simple commands no events, no agitation, no fevers no seizures, Hospitalist Physical - Physical exam Narrative exam: General appearance: Present:appears chronically ill - EENT Eyes: Present: PERRL - Neck Neck: Present: supple - Respiratory Respiratory effort: labored Respiratory: bilateral: rales - Cardiovascular Rhythm: regular Heart Sounds: Present: S1 & S2 - Extremities Extremities: no ischemia - Abdominal General gastrointestinal: soft, non-tender - Integumentary Integumentary: Present: clear, warm, dry - Psychiatric Psychiatric: non verbal, trached to trache collar - Neurologic Neurologic: left hemiplegia, able to move right side on command, but right side is weak condom cath in place - Constitutional Vitals: Temp Pulse Resp BP Pulse Ox 99.4 F 109 H 27 H 130/88 99 12/27/17 12:00 12/27/17 11:00 12/27/17 11:00 12/27/17 11:00 12/27/17 11:00 General appearance: Present: no acute distress Results - Labs CBC & Chem 7: 12/28/17 04:59 12/30/17 04:46 Labs: Laboratory Last Values WBC 4.6 K/mm3 (4.5-11.0) 12/24/17 03:17 RBC 3.03 M/mm3 (3.65-5.03) L 10/04/18 03:17 Hgb 7.6 gm/dl (11.8-15.2) L 12/24/17 03:17 Hct 23.7 % (35.5-45.6) L 12/24/17 03:17 MCV 78 fl (84-94) L 12/24/17 03:17 MCH 25 pg (28-32) L 12/24/17 03:17 MCHC 32 % (32-34) 12/24/17 03:17 RDW 17.8 % (13.2-15.2) H 12/24/17 03:17 Plt Count 218 K/mm3 (140-440) 12/24/17 03:17 Lymph % (Auto) 6.8 % (13.4-35.0) L 12/19/17 09:00 Rich % (Auto) Maintenance Director 12/20/17 19:00 Eos % (Auto) 0.2 % (0.0-4.3) 12/19/17 09:00 Baso % (Auto) 0.3 % (0.0-1.8) 12/19/17 09:00 Lymph # 0.8 K/mm3 (1.2-5.4) L 12/19/17 09:00 Rich # 1.6 K/mm3 (0.0-0.8) H 12/19/17 09:00 Eos # 0.0 K/mm3 (0.0-0.4) 12/19/17 09:00 Baso # 0.0 K/mm3 (0.0-0.1) 12/19/17 09:00 Add Manual Diff Complete 12/20/17 19:00 Total Counted 100 12/20/17 19:00 Seg Neutrophils % 80.1 % (40.0-70.0) H 12/19/17 09:00 Seg Neuts % (Manual) 74.0 % (40.0-70.0) H 12/20/17 19:00 Band Neutrophils % 2.0 % 12/20/17 19:00 Lymphocytes % (Manual) 6.0 % (13.4-35.0) L 12/20/17 19:00 Reactive Lymphs % (Man) 0 % 12/20/17 19:00 Monocytes % (Manual) 17.0 % (0.0-7.3) H 12/20/17 19:00 Eosinophils % (Manual) 1.0 % (0.0-4.3) 12/20/17 19:00 Basophils % (Manual) 0 % (0.0-1.8) 12/20/17 19:00 Metamyelocytes % 0 % 12/20/17 19:00 Myelocytes % 0 % 12/20/17 19:00 Promyelocytes % 0 % 12/20/17 19:00 Blast Cells % 0 % 12/20/17 19:00 Nucleated RBC % Not Reportable 12/20/17 19:00 Seg Neutrophils # 10.0 K/mm3 (1.8-7.7) H 12/19/17 09:00 Seg Neutrophils # Man 6.4 K/mm3 (1.8-7.7) 12/20/17 19:00 Band Neutrophils # 0.2 K/mm3 12/20/17 19:00 Lymphocytes # (Manual) 0.5 K/mm3 (1.2-5.4) L 12/20/17 19:00 Abs React Lymphs (Man) 0.0 K/mm3 12/20/17 19:00 Monocytes # (Manual) 1.5 K/mm3 (0.0-0.8) H 12/20/17 19:00 Eosinophils # (Manual) 0.1 K/mm3 (0.0-0.4) 12/20/17 19:00 Basophils # (Manual) 0.0 K/mm3 (0.0-0.1) 12/20/17 19:00 Metamyelocytes # 0.0 K/mm3 12/20/17 19:00 Myelocytes # 0.0 K/mm3 12/20/17 19:00 Promyelocytes # 0.0 K/mm3 12/20/17 19:00 Blast Cells # 0.0 K/mm3 12/20/17 19:00 WBC Morphology Not Reportable 12/20/17 19:00 Hypersegmented Neuts Not Reportable 12/20/17 19:00 Hyposegmented Neuts Not Reportable 12/20/17 19:00 Hypogranular Neuts Not Reportable 12/20/17 19:00 Smudge Cells Not Reportable 12/20/17 19:00 Toxic Granulation Not Reportable 12/20/17 19:00 Toxic Vacuolation Not Reportable 12/20/17 19:00 Dohle Bodies Not Reportable 12/20/17 19:00 Pelger-Huet Anomaly Not Reportable 12/20/17 19:00 Evangelina Rods Not Reportable 12/20/17 19:00 Platelet Estimate Appears normal 12/20/17 19:00 Clumped Platelets Not Reportable 12/20/17 19:00 Plt Clumps, EDTA Not Reportable 12/20/17 19:00 Large Platelets Not Reportable 12/20/17 19:00 Giant Platelets Not Reportable 12/20/17 19:00 Platelet Satelliting Not Reportable 12/20/17 19:00 Plt Morphology Comment Not Reportable 12/20/17 19:00 RBC Morphology Not Reportable 12/20/17 19:00 Dimorphic RBCs Not Reportable 12/20/17 19:00 Polychromasia Not Reportable 12/20/17 19:00 Hypochromasia 2+ 12/20/17 19:00 Poikilocytosis Few 12/20/17 19:00 Anisocytosis 1+ 12/20/17 19:00 Microcytosis 1+ 12/20/17 19:00 Macrocytosis Not Reportable 12/20/17 19:00 Spherocytes Not Reportable 12/20/17 19:00 Pappenheimer Bodies Not Reportable 12/20/17 19:00 Sickle Cells Not Reportable 12/20/17 19:00 Target Cells Not Reportable 12/20/17 19:00 Tear Drop Cells Not Reportable 12/20/17 19:00 Ovalocytes Few 12/20/17 19:00 Stomatocytes 1+ 12/12/17 05:41 Helmet Cells Not Reportable 12/20/17 19:00 Dukes-Wanship Bodies Not Reportable 12/20/17 19:00 Dandridge Rings Not Reportable 12/20/17 19:00 Rye Cells Not Reportable 12/20/17 19:00 Bite Cells Not Reportable 12/20/17 19:00 Crenated Cell Not Reportable 12/20/17 19:00 Elliptocytes Not Reportable 12/20/17 19:00 Acanthocytes (Spur) Not Reportable 12/20/17 19:00 Rouleaux Not Reportable 12/20/17 19:00 Hemoglobin C Crystals Not Reportable 12/20/17 19:00 Schistocytes Not Reportable 12/20/17 19:00 Malaria parasites Not Reportable 12/20/17 19:00 Santo Bodies Not Reportable 12/20/17 19:00 Hem Pathologist Commnt No 12/20/17 19:00 PT 15.4 Sec. (12.2-14.9) H 12/14/17 05:11 INR 1.17 (0.87-1.13) H 12/14/17 05:11 APTT 33.8 Sec. (24.2-36.6) 11/26/17 06:29 POC ABG pH 7.505 (7.35-7.45) H 11/23/17 04:56 POC ABG pCO2 26.3 (35-45) L 11/23/17 04:56 POC ABG pO2 100 (80-105) 11/23/17 04:56 POC ABG HCO3 20.8 11/23/17 04:56 POC ABG Total CO2 22 11/23/17 04:56 POC ABG O2 Sat 98 11/23/17 04:56 POC ABG Base Excess -2 11/23/17 04:56 FiO2 30 % 11/23/17 04:56 Sodium 139 mmol/L (137-145) 12/27/17 07:34 Potassium 3.1 mmol/L (3.6-5.0) L 12/27/17 07:34 Chloride 100.6 mmol/L (98-107) 12/27/17 07:34 Carbon Dioxide 27 mmol/L (22-30) 12/27/17 07:34 Anion Gap 15 mmol/L 12/27/17 07:34 BUN 20 mg/dL (9-20) 12/27/17 07:34 Creatinine 0.5 mg/dL (0.8-1.5) L 12/27/17 07:34 Estimated GFR > 60 ml/min 12/27/17 07:34 BUN/Creatinine Ratio 40 % 12/27/17 07:34 Glucose 99 mg/dL (75-100) 12/27/17 07:34 POC Glucose 99 (70-105) 12/27/17 12:09 Lactic Acid 1.80 mmol/L (0.7-2.0) 11/27/17 04:06 Calcium 7.7 mg/dL (8.4-10.2) L 12/27/17 07:34 Phosphorus 1.60 mg/dL (2.5-4.5) L 12/20/17 19:00 Magnesium 1.30 mg/dL (1.7-2.3) L 12/27/17 07:34 Total Bilirubin 0.30 mg/dL (0.1-1.2) 12/27/17 07:34 AST 74 units/L (5-40) H 12/27/17 07:34 ALT 80 units/L (7-56) H 12/27/17 07:34 Alkaline Phosphatase 306 units/L (35-129) H 12/27/17 07:34 Total Creatine Kinase 84 units/L (55-170) 11/12/17 20:03 CK-MB (CK-2) < 1.0 ng/mL (0.0-4.0) 11/12/17 20:03 CK-MB (CK-2) Rel Index 1.1 (0-4) 11/12/17 20:03 Troponin T 0.098 ng/mL (0.00-0.029) H 11/12/17 Unknown C-Reactive Protein 25.70 mg/dL (0.00-1.30) H 11/11/17 23:20 NT-Pro-B Natriuret Pep 792.4 pg/mL (0-900) 11/11/17 23:20 Total Protein 6.1 g/dL (6.3-8.2) L 12/27/17 07:34 Albumin 2.1 g/dL (3.9-5) L 12/27/17 07:34 Albumin/Globulin Ratio 0.5 % 12/27/17 07:34 Triglycerides 86 mg/dL (2-149) 11/11/17 23:20 Cholesterol 82 mg/dL (50-199) 11/11/17 23:20 LDL Cholesterol Direct 42 mg/dL (50-130) L 11/11/17 23:20 HDL Cholesterol 24 mg/dL (40-59) L 11/11/17 23:20 Cholesterol/HDL Ratio 3.41 % 11/11/17 23:20 Lipase 30 units/L (13-60) 11/11/17 23:20 Urine Color Nicole (Yellow) 11/11/17 23:09 Urine Turbidity Cloudy (Clear) 11/11/17 23:09 Urine pH 5.0 (5.0-7.0) 11/11/17 23:09 Ur Specific [place] 1.025 (1.003-1.030) 11/11/17 23:09 Urine Protein 100 mg/dl mg/dL (Negative) 11/11/17 23:09 Urine Glucose (UA) 50 mg/dL (Negative) 11/11/17 23:09 Urine Ketones Neg mg/dL (Negative) 11/11/17 23:09 Urine Blood Neg (Negative) 11/11/17 23:09 Urine Nitrite Neg (Negative) 11/11/17 23:09 Urine Bilirubin Neg (Negative) 11/11/17 23:09 Urine Urobilinogen 4.0 mg/dL (<2.0) 11/11/17 23:09 Ur Leukocyte Esterase Neg (Negative) 11/11/17 23:09 Urine WBC (Auto) 5.0 /HPF (0.0-6.0) 11/11/17 23:09 Urine RBC (Auto) 4.0 /HPF (0.0-6.0) 11/11/17 23:09 Urine Bacteria (Auto) 3+ /HPF (Negative) 11/11/17 23:09 Amorphous Crystals 3+ 11/11/17 23:09 Hyaline Casts 76 /LPF 11/11/17 23:09 Urine Mucus 2+ /HPF 11/11/17 23:09 Urine Total Volume 1350 12/22/17 10:50 Urine Creatinine 55.8 mg/dL (0.1-20.0) H 12/22/17 10:50 Ur Creatinine 24 Hour 0.8 (0.8-2.8) 12/22/17 10:50 Hepatitis A IgM Ab Non-reactive (NonReactive) 11/22/17 19:45 Hep Bs Antigen Non-reactive (Negative) 11/22/17 19:45 Hep B Core IgM Ab Non-reactive (NonReactive) 11/22/17 19:45 Hepatitis C Antibody Reactive (NonReactive) A 11/22/17 19:45 Blood Type A POSITIVE 12/16/17 13:01 Antibody Screen Positive 12/16/17 13:01 SANTANA Antibody Screen Cancelled 12/16/17 13:01 Antibody Identification Cold Antibody 12/16/17 13:01 Crossmatch See Detail 12/16/17 13:01 Crossmatch Prewarmed See Detail 12/16/17 13:01
[2017-12-27] MEDS: KCL 40 MEQ in NACL 0.9% 500 ML 500 ML IV SCH ×2 (15:13→20:08)
--- NOTE | 2017-12-27 15:18 | Progress Note ---
Assessment and Plan Imp: 1. CVA 2. Hemiparesis 3. Aspiration pneumonitis related to above 4. Sepsis 2/2 peritonitis/PEG mal-position, better 5. DARYA 6. s/p Trach/PEG Rec: 1. Holding HD per renal; K and mag repletion per renal 2. ABX per ID -> Finished a prolonged course of Merrem/Diflucan; monitor temp/ WBC, etc. 3. Abdominal drains being followed and managed by surgery 4. SCDs; GI PPx 5. Cont. Tpiece as tolerated; trach will need to be permanent for secretion clearance 6. Pulm status stable 7. Insurance denies LTAC coverage Long-term prognosis poor; no family present Subjective Date of service: 12/27/17 Principal diagnosis: Acute hypoxic respiratory failure, s/p Trach Interval history: Awake, alert. On 28% Tpiece and tolerating well. Unable to give history. Active Medications Acetaminophen (Tylenol) 650 mg FEEDTUBE Q6H PRN PRN Reason: Pain, Mild (1-3) Last Admin: 12/22/17 20:37 Dose: 650 mg Lipase/Protease/Amylase (Pancreaze Dr 10,500 Unit) 1 each FEEDTUBE PRN PRN PRN Reason: For Clogged Feeding Tube Dextrose (D50w (25gm) Syringe) 50 ml IV PRN PRN PRN Reason: Hypoglycemia Hydralazine HCl (Apresoline) 5 mg IV Q6HR PRN PRN Reason: Hypertension Last Admin: 12/17/17 04:14 Dose: 5 mg Hydromorphone HCl (Dilaudid) 1 mg IV Q3H PRN PRN Reason: Pain , Severe (7-10) Last Admin: 12/21/17 00:04 Dose: 1 mg Potassium Chloride 20 meq/ (Sodium Chloride) 1,010 mls @ 75 mls/hr IV DIRECT [facility] Potassium Chloride 40 meq/ (Sodium Chloride) 520 mls @ 125 mls/hr IV Q4H [facility] Stop: 12/27/17 22:29 Last Admin: 12/27/17 15:13 Dose: 125 mls/hr Lansoprazole (Prevacid Solutab) 30 mg FEEDTUBE BID [facility] Last Admin: 12/27/17 09:19 Dose: 30 mg Magnesium Oxide (Mag-Ox) 400 mg PO BID [facility] Last Admin: 12/27/17 10:33 Dose: 400 mg Metoprolol Tartrate (Lopressor) 25 mg PO BID [facility] Last Admin: 12/27/17 09:20 Dose: 25 mg Ondansetron HCl (Zofran) 4 mg IV Q3H PRN PRN Reason: Nausea And Vomiting Last Admin: 12/17/17 20:46 Dose: 4 mg Potassium Chloride (Potassium Chloride) 40 meq FEEDTUBE BID [facility] Simple Syrup (Simple Syrup) 15 ml FEEDTUBE PRN PRN PRN Reason: Hypoglycemia Simple Syrup (Simple Syrup) 30 ml FEEDTUBE PRN PRN PRN Reason: Hypoglycemia Sodium Bicarbonate (Sodium Bicarbonate) 325 mg FEEDTUBE PRN PRN PRN Reason: For Clogged Feeding Tube Objective Vital Signs - 12hr 12/27/17 12/27/17 12/27/17 04:00 04:37 05:00 Temperature 97.6 F Pulse Rate 107 H 104 H Pulse Rate [ Right From Monitor] Respiratory 31 H Rate Blood Pressure 119/82 122/85 O2 Sat by Pulse 99 Oximetry O2 Sat by Pulse 100 Oximetry [ Assessment] 12/27/17 12/27/17 12/27/17 06:00 07:00 07:21 Temperature Pulse Rate 104 H 101 H Pulse Rate [ Right From Monitor] Respiratory 31 H 26 H Rate Blood Pressure 122/86 141/83 O2 Sat by Pulse 100 Oximetry O2 Sat by Pulse Oximetry [ Assessment] 12/27/17 12/27/17 12/27/17 07:22 07:55 08:00 Temperature Pulse Rate 104 H 104 H Pulse Rate [ Right From Monitor] Respiratory 28 H Rate Blood Pressure 141/91 O2 Sat by Pulse 100 Oximetry O2 Sat by Pulse 100 Oximetry [ Assessment] 12/27/17 12/27/17 12/27/17 09:00 09:20 10:00 Temperature Pulse Rate 109 H 101 H 100 H Pulse Rate [ 100 H Right From Monitor] Respiratory 32 H 27 H Rate Blood Pressure 152/92 152/92 160/97 O2 Sat by Pulse 100 100 Oximetry O2 Sat by Pulse Oximetry [ Assessment] 12/27/17 12/27/17 12/27/17 11:00 12:00 13:00 Temperature 99.4 F Pulse Rate 109 H 102 H 97 H Pulse Rate [ Right From Monitor] Respiratory 27 H 30 H 29 H Rate Blood Pressure 130/88 126/84 113/76 O2 Sat by Pulse 99 97 Oximetry O2 Sat by Pulse Oximetry [ Assessment] 12/27/17 12/27/17 12/27/17 14:00 15:00 15:10 Temperature Pulse Rate 99 H 109 H Pulse Rate [ Right From Monitor] Respiratory 32 H 27 H Rate Blood Pressure 111/84 128/86 O2 Sat by Pulse Oximetry O2 Sat by Pulse 100 Oximetry [ Assessment] Constitutional: no acute distress, alert Eyes: non-icteric ENT: oropharynx moist Neck: supple (trach in position) Effort: normal Ascultation: Bilateral: rales (few bilaterally) Cardiovascular: regular rate and rhythm Gastrointestinal: normoactive bowel sounds, soft, non-tender, other (drains in place) Integumentary: normal Extremities: no cyanosis, pink and warm, edema (2+ bilateral LE edema) Neurologic: other (L hemiparesis,awake, response to my voice) Psychiatric: other (unable to assess) CBC and BMP: 12/24/17 03:17 12/27/17 07:34 ABG, PT/INR, D-dimer: ABG POC ABG pH 7.505 (7.35-7.45) H 11/23/17 04:56 POC ABG pCO2 26.3 (35-45) L 11/23/17 04:56 POC ABG pO2 100 (80-105) 11/23/17 04:56 POC ABG HCO3 20.8 11/23/17 04:56 POC ABG Total CO2 22 11/23/17 04:56 POC ABG O2 Sat 98 11/23/17 04:56 PT/INR, D-dimer PT 15.4 Sec. (12.2-14.9) H 12/14/17 05:11 INR 1.17 (0.87-1.13) H 12/14/17 05:11 Abnormal lab findings: Abnormal Labs 11/11/17 11/11/17 11/11/17 23:18 23:20 23:20 WBC RBC Hgb 10.4 L Hct 32.6 L D MCV MCH 27 L MCHC RDW 17.4 H Plt Count 105 L Lymph % (Auto) [place] % (Auto) Eos % (Auto) Lymph # [place] # Eos # Seg Neutrophils % Seg Neuts % (Manual) Lymphocytes % (Manual) 8.0 L Monocytes % (Manual) Eosinophils % (Manual) Nucleated RBC % 1.0 H Seg Neutrophils # Seg Neutrophils # Man Lymphocytes # (Manual) 0.7 L Monocytes # (Manual) Eosinophils # (Manual) PT INR POC ABG pH 7.550 H POC ABG pCO2 31.6 L POC ABG pO2 Sodium 146 H Potassium Chloride Carbon Dioxide BUN 26 H Creatinine 1.7 H D Glucose 133 H POC Glucose Lactic Acid Calcium Phosphorus Magnesium AST ALT Alkaline Phosphatase Troponin T 0.117 H* C-Reactive Protein Total Protein Albumin 2.5 L LDL Cholesterol Direct 42 L HDL Cholesterol 24 L Urine Creatinine Hepatitis C Antibody Crossmatch Crossmatch [facility] 11/11/17 11/12/17 11/12/17 23:20 00:23 00:23 WBC RBC Hgb Hct MCV MCH MCHC RDW Plt Count Lymph % (Auto) [place] % (Auto) Eos % (Auto) Lymph # [place] # Eos # Seg Neutrophils % Seg Neuts % (Manual) Lymphocytes % (Manual) Monocytes % (Manual) Eosinophils % (Manual) Nucleated RBC % Seg Neutrophils # Seg Neutrophils # Man Lymphocytes # (Manual) Monocytes # (Manual) Eosinophils # (Manual) PT 16.7 H INR 1.28 H POC ABG pH POC ABG pCO2 POC ABG pO2 Sodium Potassium Chloride Carbon Dioxide BUN Creatinine Glucose POC Glucose Lactic Acid 3.20 H* Calcium Phosphorus Magnesium AST ALT Alkaline Phosphatase Troponin T C-Reactive Protein 25.70 H Total Protein Albumin LDL Cholesterol Direct HDL Cholesterol Urine Creatinine Hepatitis C Antibody Crossmatch Crossmatch [facility] 11/12/17 11/12/17 11/12/17 00:46 01:27 01:27 WBC RBC Hgb Hct MCV MCH MCHC RDW Plt Count Lymph % (Auto) [place] % (Auto) Eos % (Auto) Lymph # [place] # Eos # Seg Neutrophils % Seg Neuts % (Manual) Lymphocytes % (Manual) Monocytes % (Manual) Eosinophils % (Manual) Nucleated RBC % Seg Neutrophils # Seg Neutrophils # Man Lymphocytes # (Manual) Monocytes # (Manual) Eosinophils # (Manual) PT INR POC ABG pH 7.495 H POC ABG pCO2 32.0 L POC ABG pO2 64 L Sodium Potassium Chloride Carbon Dioxide BUN Creatinine Glucose POC Glucose Lactic Acid 3.70 H* Calcium Phosphorus Magnesium AST ALT Alkaline Phosphatase Troponin T 0.096 H C-Reactive Protein Total Protein Albumin LDL Cholesterol Direct HDL Cholesterol Urine Creatinine Hepatitis C Antibody Crossmatch Crossmatch [facility] 11/12/17 11/12/17 11/12/17 03:21 04:50 06:27 WBC RBC Hgb Hct MCV MCH MCHC RDW Plt Count Lymph % (Auto) [place] % (Auto) Eos % (Auto) Lymph # [place] # Eos # Seg Neutrophils % Seg Neuts % (Manual) Lymphocytes % (Manual) Monocytes % (Manual) Eosinophils % (Manual) Nucleated RBC % Seg Neutrophils # Seg Neutrophils # Man Lymphocytes # (Manual) Monocytes # (Manual) Eosinophils # (Manual) PT INR POC ABG pH POC ABG pCO2 POC ABG pO2 109 H Sodium Potassium Chloride Carbon Dioxide BUN Creatinine Glucose POC Glucose Lactic Acid 3.80 H* 2.20 H* Calcium Phosphorus Magnesium AST ALT Alkaline Phosphatase Troponin T C-Reactive Protein Total Protein Albumin LDL Cholesterol Direct HDL Cholesterol Urine Creatinine Hepatitis C Antibody Crossmatch Crossmatch [facility] 11/12/17 11/12/17 11/12/17 09:24 09:24 09:24 WBC RBC Hgb 10.4 L Hct 33.4 L MCV MCH MCHC RDW Plt Count Lymph % (Auto) [place] % (Auto) Eos % (Auto) Lymph # [place] # Eos # Seg Neutrophils % Seg Neuts % (Manual) Lymphocytes % (Manual) Monocytes % (Manual) Eosinophils % (Manual) Nucleated RBC % Seg Neutrophils # Seg Neutrophils # Man Lymphocytes # (Manual) Monocytes # (Manual) Eosinophils # (Manual) PT INR POC ABG pH POC ABG pCO2 POC ABG pO2 Sodium Potassium Chloride Carbon Dioxide BUN Creatinine Glucose POC Glucose Lactic Acid 2.90 H* Calcium Phosphorus Magnesium AST ALT Alkaline Phosphatase Troponin T 0.091 H C-Reactive Protein Total Protein Albumin LDL Cholesterol Direct HDL Cholesterol Urine Creatinine Hepatitis C Antibody Crossmatch Crossmatch [facility] 11/12/17 11/12/17 11/12/17 12:56 20:03 Unknown WBC RBC Hgb Hct MCV MCH MCHC RDW Plt Count Lymph % (Auto) [place] % (Auto) Eos % (Auto) Lymph # [place] # Eos # Seg Neutrophils % Seg Neuts % (Manual) Lymphocytes % (Manual) Monocytes % (Manual) Eosinophils % (Manual) Nucleated RBC % Seg Neutrophils # Seg Neutrophils # Man Lymphocytes # (Manual) Monocytes # (Manual) Eosinophils # (Manual) PT INR POC ABG pH POC ABG pCO2 POC ABG pO2 Sodium Potassium Chloride Carbon Dioxide BUN Creatinine Glucose POC Glucose Lactic Acid 3.60 H* Calcium Phosphorus Magnesium AST ALT Alkaline Phosphatase Troponin T 0.102 H* 0.156 H* D C-Reactive Protein Total Protein Albumin LDL Cholesterol Direct HDL Cholesterol Urine Creatinine Hepatitis C Antibody Crossmatch Crossmatch [facility] 11/12/17 11/13/17 11/13/17 Unknown 04:50 04:50 WBC 12.2 H RBC 3.51 L Hgb 9.3 L Hct 30.1 L MCV MCH 26 L MCHC 31 L RDW 18.0 H Plt Count 128 L Lymph % (Auto) 8.6 L [place] % (Auto) 11.1 H Eos % (Auto) Lymph # 1.1 L [place] # 1.4 H Eos # Seg Neutrophils % 80.1 H Seg Neuts % (Manual) Lymphocytes % (Manual) Monocytes % (Manual) Eosinophils % (Manual) Nucleated RBC % Seg Neutrophils # 9.8 H Seg Neutrophils # Man Lymphocytes # (Manual) Monocytes # (Manual) Eosinophils # (Manual) PT INR POC ABG pH POC ABG pCO2 POC ABG pO2 Sodium 149 H Potassium 5.1 H Chloride 114.4 H Carbon Dioxide 18 L BUN 52 H Creatinine 3.3 H D Glucose 129 H POC Glucose Lactic Acid Calcium 7.9 L Phosphorus Magnesium AST ALT Alkaline Phosphatase Troponin T 0.098 H C-Reactive Protein Total Protein Albumin LDL Cholesterol Direct HDL Cholesterol Urine Creatinine Hepatitis C Antibody Crossmatch Crossmatch [facility] 11/13/17 11/13/17 11/14/17 04:51 09:34 04:21 WBC RBC Hgb Hct MCV MCH MCHC RDW Plt Count Lymph % (Auto) [place] % (Auto) Eos % (Auto) Lymph # [place] # Eos # Seg Neutrophils % Seg Neuts % (Manual) Lymphocytes % (Manual) Monocytes % (Manual) Eosinophils % (Manual) Nucleated RBC % Seg Neutrophils # Seg Neutrophils # Man Lymphocytes # (Manual) Monocytes # (Manual) Eosinophils # (Manual) PT INR POC ABG pH POC ABG pCO2 30.1 L 29.8 L POC ABG pO2 135 H Sodium Potassium Chloride Carbon Dioxide BUN Creatinine Glucose POC Glucose Lactic Acid 2.10 H* Calcium Phosphorus Magnesium AST ALT Alkaline Phosphatase Troponin T C-Reactive Protein Total Protein Albumin LDL Cholesterol Direct HDL Cholesterol Urine Creatinine Hepatitis C Antibody Crossmatch Crossmatch [facility] 11/15/17 11/15/17 11/16/17 04:52 15:50 05:17 WBC RBC Hgb Hct MCV MCH MCHC RDW Plt Count Lymph % (Auto) [place] % (Auto) Eos % (Auto) Lymph # [place] # Eos # Seg Neutrophils % Seg Neuts % (Manual) Lymphocytes % (Manual) Monocytes % (Manual) Eosinophils % (Manual) Nucleated RBC % Seg Neutrophils # Seg Neutrophils # Man Lymphocytes # (Manual) Monocytes # (Manual) Eosinophils # (Manual) PT INR POC ABG pH POC ABG pCO2 29.5 L 31.5 L POC ABG pO2 115 H 122 H Sodium 154 H Potassium Chloride 117.9 H Carbon Dioxide 19 L BUN 87 H Creatinine 4.1 H Glucose POC Glucose Lactic Acid Calcium 8.1 L Phosphorus Magnesium AST ALT Alkaline Phosphatase Troponin T C-Reactive Protein Total Protein Albumin LDL Cholesterol Direct HDL Cholesterol Urine Creatinine Hepatitis C Antibody Crossmatch Crossmatch [facility] 11/16/17 11/17/17 11/17/17 16:37 04:07 10:00 WBC 14.7 H RBC 3.23 L Hgb 8.3 L Hct 28.1 L MCV MCH 26 L MCHC 30 L RDW 18.8 H Plt Count Lymph % (Auto) [place] % (Auto) Eos % (Auto) Lymph # [place] # Eos # Seg Neutrophils % Seg Neuts % (Manual) 75 H Lymphocytes % (Manual) 8.0 L Monocytes % (Manual) Eosinophils % (Manual) Nucleated RBC % 1.0 H Seg Neutrophils # Seg Neutrophils # Man 11.0 H Lymphocytes # (Manual) Monocytes # (Manual) 0.9 H Eosinophils # (Manual) PT INR POC ABG pH POC ABG pCO2 POC ABG pO2 Sodium 153 H 155 H Potassium Chloride 117.3 H 119.4 H Carbon Dioxide 19 L 20 L BUN 90 H 89 H Creatinine 3.9 H 3.6 H Glucose 111 H 115 H POC Glucose Lactic Acid Calcium 8.1 L 8.0 L Phosphorus Magnesium AST ALT Alkaline Phosphatase Troponin T C-Reactive Protein Total Protein Albumin LDL Cholesterol Direct HDL Cholesterol Urine Creatinine Hepatitis C Antibody Crossmatch Crossmatch [facility] 11/18/17 11/18/17 11/18/17 04:34 04:34 04:34 WBC 15.5 H RBC 3.13 L Hgb 8.1 L Hct 26.3 L MCV MCH 26 L MCHC 31 L RDW 18.6 H Plt Count Lymph % (Auto) [place] % (Auto) Eos % (Auto) Lymph # [place] # Eos # Seg Neutrophils % Seg Neuts % (Manual) 81.0 H Lymphocytes % (Manual) 7.0 L Monocytes % (Manual) Eosinophils % (Manual) Nucleated RBC % 1.0 H Seg Neutrophils # Seg Neutrophils # Man 12.6 H Lymphocytes # (Manual) 1.1 L Monocytes # (Manual) Eosinophils # (Manual) PT 16.7 H INR 1.30 H POC ABG pH POC ABG pCO2 POC ABG pO2 Sodium 155 H Potassium 3.2 L Chloride 121.0 H Carbon Dioxide 20 L BUN 74 H Creatinine 2.9 H Glucose 126 H POC Glucose Lactic Acid Calcium 7.9 L Phosphorus Magnesium AST ALT Alkaline Phosphatase Troponin T C-Reactive Protein Total Protein Albumin LDL Cholesterol Direct HDL Cholesterol Urine Creatinine Hepatitis C Antibody Crossmatch Crossmatch [facility] 11/19/17 11/19/17 11/20/17 04:44 04:44 00:38 WBC 19.0 H 22.2 H RBC 3.20 L 3.17 L Hgb 8.4 L 7.9 L Hct 27.9 L 26.4 L MCV 83 L MCH 26 L 25 L MCHC 30 L 30 L RDW 19.1 H 18.9 H Plt Count Lymph % (Auto) [place] % (Auto) Eos % (Auto) Lymph # [place] # Eos # Seg Neutrophils % Seg Neuts % (Manual) 83.0 H Lymphocytes % (Manual) 3.0 L Monocytes % (Manual) 9.0 H Eosinophils % (Manual) Nucleated RBC % Seg Neutrophils # Seg Neutrophils # Man 18.4 H Lymphocytes # (Manual) 0.7 L Monocytes # (Manual) 2.0 H Eosinophils # (Manual) PT INR POC ABG pH POC ABG pCO2 POC ABG pO2 Sodium 152 H Potassium Chloride 117.1 H Carbon Dioxide 17 L BUN 66 H Creatinine 2.8 H Glucose 119 H POC Glucose Lactic Acid Calcium 7.8 L Phosphorus Magnesium 2.70 H AST ALT Alkaline Phosphatase Troponin T C-Reactive Protein Total Protein Albumin LDL Cholesterol Direct HDL Cholesterol Urine Creatinine Hepatitis C Antibody Crossmatch Crossmatch [facility] 11/20/17 11/20/17 11/20/17 03:29 04:48 13:38 WBC RBC Hgb Hct MCV MCH MCHC RDW Plt Count Lymph % (Auto) [place] % (Auto) Eos % (Auto) Lymph # [place] # Eos # Seg Neutrophils % Seg Neuts % (Manual) Lymphocytes % (Manual) Monocytes % (Manual) Eosinophils % (Manual) Nucleated RBC % Seg Neutrophils # Seg Neutrophils # Man Lymphocytes # (Manual) Monocytes # (Manual) Eosinophils # (Manual) PT INR POC ABG pH POC ABG pCO2 29.4 L POC ABG pO2 Sodium 148 H Potassium 3.4 L Chloride 113.7 H Carbon Dioxide 18 L BUN 59 H Creatinine 2.7 H Glucose 113 H POC Glucose 128 H Lactic Acid Calcium 7.8 L Phosphorus Magnesium AST ALT Alkaline Phosphatase Troponin T C-Reactive Protein Total Protein Albumin LDL Cholesterol Direct HDL Cholesterol Urine Creatinine Hepatitis C Antibody Crossmatch Crossmatch [facility] 11/20/17 11/20/17 11/21/17 17:38 23:40 00:13 WBC RBC Hgb 8.4 L Hct 28.0 L MCV MCH MCHC RDW Plt Count Lymph % (Auto) [place] % (Auto) Eos % (Auto) Lymph # [place] # Eos # Seg Neutrophils % Seg Neuts % (Manual) Lymphocytes % (Manual) Monocytes % (Manual) Eosinophils % (Manual) Nucleated RBC % Seg Neutrophils # Seg Neutrophils # Man Lymphocytes # (Manual) Monocytes # (Manual) Eosinophils # (Manual) PT INR POC ABG pH POC ABG pCO2 POC ABG pO2 Sodium Potassium Chloride Carbon Dioxide BUN Creatinine Glucose POC Glucose 115 H 145 H Lactic Acid Calcium Phosphorus Magnesium AST ALT Alkaline Phosphatase Troponin T C-Reactive Protein Total Protein Albumin LDL Cholesterol Direct HDL Cholesterol Urine Creatinine Hepatitis C Antibody Crossmatch Crossmatch [facility] 11/21/17 11/21/17 11/21/17 04:30 04:30 04:58 WBC 21.0 H RBC Hgb 9.6 L Hct 32.7 L MCV MCH 25 L MCHC 29 L RDW 19.7 H Plt Count 746 H Lymph % (Auto) [place] % (Auto) Eos % (Auto) Lymph # [place] # Eos # Seg Neutrophils % Seg Neuts % (Manual) Lymphocytes % (Manual) Monocytes % (Manual) Eosinophils % (Manual) Nucleated RBC % Seg Neutrophils # Seg Neutrophils # Man Lymphocytes # (Manual) Monocytes # (Manual) Eosinophils # (Manual) PT INR POC ABG pH POC ABG pCO2 POC ABG pO2 Sodium Potassium Chloride 109.4 H Carbon Dioxide 14 L BUN 59 H Creatinine 3.0 H Glucose 137 H POC Glucose 132 H Lactic Acid Calcium 7.6 L Phosphorus Magnesium AST ALT Alkaline Phosphatase Troponin T C-Reactive Protein Total Protein Albumin LDL Cholesterol Direct HDL Cholesterol Urine Creatinine Hepatitis C Antibody Crossmatch Crossmatch [facility] 11/21/17 11/21/17 11/21/17 06:30 13:43 14:17 WBC 38.2 H RBC Hgb 9.0 L Hct 32.3 L MCV MCH 25 L MCHC 28 L RDW 20.0 H Plt Count 766 H Lymph % (Auto) [place] % (Auto) Eos % (Auto) Lymph # [place] # Eos # Seg Neutrophils % Seg Neuts % (Manual) 85.0 H Lymphocytes % (Manual) 1.0 L Monocytes % (Manual) Eosinophils % (Manual) Nucleated RBC % 2.0 H Seg Neutrophils # Seg Neutrophils # Man 32.5 H Lymphocytes # (Manual) 0.4 L Monocytes # (Manual) 2.3 H Eosinophils # (Manual) PT INR POC ABG pH POC ABG pCO2 18.6 L POC ABG pO2 121 H Sodium 146 H Potassium Chloride 110.9 H Carbon Dioxide 11 L BUN 62 H Creatinine 4.0 H Glucose 64 L POC Glucose Lactic Acid Calcium 7.6 L Phosphorus Magnesium AST ALT Alkaline Phosphatase Troponin T C-Reactive Protein Total Protein Albumin LDL Cholesterol Direct HDL Cholesterol Urine Creatinine Hepatitis C Antibody Crossmatch Crossmatch [place] 11/21/17 11/21/17 11/22/17 14:17 19:09 00:05 WBC RBC Hgb Hct MCV MCH MCHC RDW Plt Count Lymph % (Auto) [place] % (Auto) Eos % (Auto) Lymph # [place] # Eos # Seg Neutrophils % Seg Neuts % (Manual) Lymphocytes % (Manual) Monocytes % (Manual) Eosinophils % (Manual) Nucleated RBC % Seg Neutrophils # Seg Neutrophils # Man Lymphocytes # (Manual) Monocytes # (Manual) Eosinophils # (Manual) PT INR POC ABG pH POC ABG pCO2 20.0 L POC ABG pO2 Sodium Potassium Chloride Carbon Dioxide BUN Creatinine Glucose POC Glucose 127 H Lactic Acid 7.70 H* Calcium Phosphorus Magnesium AST ALT Alkaline Phosphatase Troponin T C-Reactive Protein Total Protein Albumin LDL Cholesterol Direct HDL Cholesterol Urine Creatinine Hepatitis C Antibody Crossmatch Crossmatch [place] 11/22/17 11/22/17 11/22/17 03:53 06:00 07:25 WBC RBC Hgb Hct MCV MCH MCHC RDW Plt Count Lymph % (Auto) [place] % (Auto) Eos % (Auto) Lymph # [place] # Eos # Seg Neutrophils % Seg Neuts % (Manual) Lymphocytes % (Manual) Monocytes % (Manual) Eosinophils % (Manual) Nucleated RBC % Seg Neutrophils # Seg Neutrophils # Man Lymphocytes # (Manual) Monocytes # (Manual) Eosinophils # (Manual) PT INR POC ABG pH POC ABG pCO2 22.2 L POC ABG pO2 Sodium 147 H Potassium Chloride 111.9 H Carbon Dioxide 16 L BUN 72 H Creatinine 5.1 H Glucose 181 H POC Glucose 180 H Lactic Acid Calcium 7.1 L Phosphorus Magnesium AST ALT Alkaline Phosphatase Troponin T C-Reactive Protein Total Protein Albumin LDL Cholesterol Direct HDL Cholesterol Urine Creatinine Hepatitis C Antibody Crossmatch Crossmatch [facility] 11/22/17 11/22/17 11/22/17 07:25 07:25 12:05 WBC 31.4 H RBC 3.22 L Hgb 8.0 L Hct 26.7 L MCV 83 L MCH 25 L MCHC 30 L RDW 19.4 H Plt Count 602 H Lymph % (Auto) [place] % (Auto) Eos % (Auto) Lymph # [place] # Eos # Seg Neutrophils % Seg Neuts % (Manual) Lymphocytes % (Manual) Monocytes % (Manual) Eosinophils % (Manual) Nucleated RBC % Seg Neutrophils # Seg Neutrophils # Man Lymphocytes # (Manual) Monocytes # (Manual) Eosinophils # (Manual) PT INR POC ABG pH POC ABG pCO2 POC ABG pO2 Sodium Potassium Chloride Carbon Dioxide BUN Creatinine Glucose POC Glucose 182 H Lactic Acid 5.00 H* Calcium Phosphorus Magnesium AST ALT Alkaline Phosphatase Troponin T C-Reactive Protein Total Protein Albumin LDL Cholesterol Direct HDL Cholesterol Urine Creatinine Hepatitis C Antibody Crossmatch Crossmatch [facility] 11/22/17 11/23/17 11/23/17 19:45 01:28 04:56 WBC RBC Hgb Hct MCV MCH MCHC RDW Plt Count Lymph % (Auto) [place] % (Auto) Eos % (Auto) Lymph # [place] # Eos # Seg Neutrophils % Seg Neuts % (Manual) Lymphocytes % (Manual) Monocytes % (Manual) Eosinophils % (Manual) Nucleated RBC % Seg Neutrophils # Seg Neutrophils # Man Lymphocytes # (Manual) Monocytes # (Manual) Eosinophils # (Manual) PT INR POC ABG pH 7.505 H POC ABG pCO2 26.3 L POC ABG pO2 Sodium Potassium Chloride Carbon Dioxide BUN Creatinine Glucose POC Glucose 165 H Lactic Acid Calcium Phosphorus Magnesium AST ALT Alkaline Phosphatase Troponin T C-Reactive Protein Total Protein Albumin LDL Cholesterol Direct HDL Cholesterol Urine Creatinine Hepatitis C Antibody Reactive A Crossmatch Crossmatch [facility] 11/23/17 11/23/17 11/23/17 07:05 12:32 17:53 WBC RBC Hgb Hct MCV MCH MCHC RDW Plt Count Lymph % (Auto) [place] % (Auto) Eos % (Auto) Lymph # [place] # Eos # Seg Neutrophils % Seg Neuts % (Manual) Lymphocytes % (Manual) Monocytes % (Manual) Eosinophils % (Manual) Nucleated RBC % Seg Neutrophils # Seg Neutrophils # Man Lymphocytes # (Manual) Monocytes # (Manual) Eosinophils # (Manual) PT INR POC ABG pH POC ABG pCO2 POC ABG pO2 Sodium Potassium Chloride Carbon Dioxide 18 L BUN 61 H Creatinine 4.2 H Glucose 153 H POC Glucose 138 H 173 H Lactic Acid Calcium 7.5 L Phosphorus Magnesium AST ALT Alkaline Phosphatase Troponin T C-Reactive Protein Total Protein Albumin LDL Cholesterol Direct HDL Cholesterol Urine Creatinine Hepatitis C Antibody Crossmatch Crossmatch [facility] 11/23/17 11/24/17 11/24/17 23:41 05:42 05:42 WBC 21.5 H RBC 2.48 L Hgb 6.2 L Hct 20.3 L D MCV 82 L MCH 25 L MCHC 31 L RDW 18.9 H Plt Count Lymph % (Auto) [place] % (Auto) Eos % (Auto) Lymph # [place] # Eos # Seg Neutrophils % Seg Neuts % (Manual) 94.0 H Lymphocytes % (Manual) 3.0 L Monocytes % (Manual) Eosinophils % (Manual) Nucleated RBC % Seg Neutrophils # Seg Neutrophils # Man 20.2 H Lymphocytes # (Manual) 0.6 L Monocytes # (Manual) Eosinophils # (Manual) PT INR POC ABG pH POC ABG pCO2 POC ABG pO2 Sodium 149 H Potassium 2.8 L* D Chloride 113.9 H Carbon Dioxide 19 L BUN 31 H Creatinine 2.3 H Glucose 103 H POC Glucose 133 H Lactic Acid Calcium 5.3 L* D Phosphorus Magnesium 1.30 L AST ALT Alkaline Phosphatase Troponin T C-Reactive Protein Total Protein Albumin LDL Cholesterol Direct HDL Cholesterol Urine Creatinine Hepatitis C Antibody Crossmatch Crossmatch [facility] 11/24/17 11/24/17 11/24/17 05:42 08:27 08:27 WBC RBC Hgb Hct MCV MCH MCHC RDW Plt Count Lymph % (Auto) [place] % (Auto) Eos % (Auto) Lymph # [place] # Eos # Seg Neutrophils % Seg Neuts % (Manual) Lymphocytes % (Manual) Monocytes % (Manual) Eosinophils % (Manual) Nucleated RBC % Seg Neutrophils # Seg Neutrophils # Man Lymphocytes # (Manual) Monocytes # (Manual) Eosinophils # (Manual) PT INR POC ABG pH POC ABG pCO2 POC ABG pO2 Sodium Potassium Chloride Carbon Dioxide BUN Creatinine Glucose POC Glucose Lactic Acid 5.40 H* 5.20 H* Calcium Phosphorus Magnesium AST ALT Alkaline Phosphatase Troponin T C-Reactive Protein Total Protein Albumin LDL Cholesterol Direct HDL Cholesterol Urine Creatinine Hepatitis C Antibody Crossmatch See Detail Crossmatch [facility] 11/24/17 11/24/17 11/24/17 12:13 17:22 21:53 WBC 23.0 H RBC 3.32 L Hgb 8.8 L Hct 27.1 L D MCV 82 L MCH 26 L MCHC RDW 17.3 H Plt Count Lymph % (Auto) [place] % (Auto) Eos % (Auto) Lymph # [place] # Eos # Seg Neutrophils % Seg Neuts % (Manual) Lymphocytes % (Manual) Monocytes % (Manual) Eosinophils % (Manual) Nucleated RBC % Seg Neutrophils # Seg Neutrophils # Man Lymphocytes # (Manual) Monocytes # (Manual) Eosinophils # (Manual) PT INR POC ABG pH POC ABG pCO2 POC ABG pO2 Sodium Potassium Chloride Carbon Dioxide BUN Creatinine Glucose POC Glucose 138 H 180 H Lactic Acid Calcium Phosphorus Magnesium AST ALT Alkaline Phosphatase Troponin T C-Reactive Protein Total Protein Albumin LDL Cholesterol Direct HDL Cholesterol Urine Creatinine Hepatitis C Antibody Crossmatch Crossmatch [facility] 11/24/17 11/24/17 11/25/17 21:53 23:28 04:19 WBC RBC Hgb Hct MCV MCH MCHC RDW Plt Count Lymph % (Auto) [place] % (Auto) Eos % (Auto) Lymph # [place] # Eos # Seg Neutrophils % Seg Neuts % (Manual) Lymphocytes % (Manual) Monocytes % (Manual) Eosinophils % (Manual) Nucleated RBC % Seg Neutrophils # Seg Neutrophils # Man Lymphocytes # (Manual) Monocytes # (Manual) Eosinophils # (Manual) PT INR POC ABG pH POC ABG pCO2 POC ABG pO2 Sodium Potassium Chloride 96.3 L Carbon Dioxide BUN 28 H 31 H Creatinine 2.3 H 2.6 H Glucose 125 H 101 H POC Glucose 111 H Lactic Acid Calcium 7.5 L D 7.4 L Phosphorus Magnesium AST 170 H ALT 179 H Alkaline Phosphatase 175 H Troponin T C-Reactive Protein Total Protein 5.5 L Albumin 1.8 L LDL Cholesterol Direct HDL Cholesterol Urine Creatinine Hepatitis C Antibody Crossmatch Crossmatch [facility] 11/25/17 11/25/17 11/26/17 04:19 04:19 06:29 WBC 22.5 H RBC 3.48 L Hgb 9.1 L Hct 28.3 L MCV 81 L MCH 26 L MCHC RDW 17.4 H Plt Count Lymph % (Auto) [place] % (Auto) Eos % (Auto) Lymph # [place] # Eos # Seg Neutrophils % Seg Neuts % (Manual) Lymphocytes % (Manual) Monocytes % (Manual) Eosinophils % (Manual) Nucleated RBC % Seg Neutrophils # Seg Neutrophils # Man Lymphocytes # (Manual) Monocytes # (Manual) Eosinophils # (Manual) PT 23.6 H INR 1.96 H POC ABG pH POC ABG pCO2 POC ABG pO2 Sodium Potassium Chloride Carbon Dioxide BUN 31 H Creatinine 2.6 H Glucose 101 H POC Glucose Lactic Acid Calcium 7.5 L Phosphorus Magnesium AST ALT Alkaline Phosphatase Troponin T C-Reactive Protein Total Protein Albumin LDL Cholesterol Direct HDL Cholesterol Urine Creatinine Hepatitis C Antibody Crossmatch Crossmatch [facility] 11/26/17 11/27/17 11/27/17 06:34 04:06 04:06 WBC 11.3 H RBC 3.13 L Hgb 8.4 L Hct 25.8 L MCV 82 L MCH 27 L MCHC RDW 17.7 H Plt Count Lymph % (Auto) 7.4 L [place] % (Auto) Eos % (Auto) Lymph # 0.8 L [place] # Eos # Seg Neutrophils % 83.7 H Seg Neuts % (Manual) Lymphocytes % (Manual) Monocytes % (Manual) Eosinophils % (Manual) Nucleated RBC % Seg Neutrophils # 9.5 H Seg Neutrophils # Man Lymphocytes # (Manual) Monocytes # (Manual) Eosinophils # (Manual) PT INR POC ABG pH POC ABG pCO2 POC ABG pO2 Sodium Potassium Chloride 97.9 L Carbon Dioxide BUN 43 H 29 H Creatinine 3.5 H 2.9 H Glucose POC Glucose Lactic Acid Calcium 7.5 L 8.1 L Phosphorus Magnesium AST ALT Alkaline Phosphatase Troponin T C-Reactive Protein Total Protein Albumin LDL Cholesterol Direct HDL Cholesterol Urine Creatinine Hepatitis C Antibody Crossmatch Crossmatch [facility] 11/27/17 11/28/17 11/28/17 18:11 00:16 03:50 WBC RBC Hgb Hct MCV MCH MCHC RDW Plt Count Lymph % (Auto) [place] % (Auto) Eos % (Auto) Lymph # [place] # Eos # Seg Neutrophils % Seg Neuts % (Manual) Lymphocytes % (Manual) Monocytes % (Manual) Eosinophils % (Manual) Nucleated RBC % Seg Neutrophils # Seg Neutrophils # Man Lymphocytes # (Manual) Monocytes # (Manual) Eosinophils # (Manual) PT INR POC ABG pH POC ABG pCO2 POC ABG pO2 Sodium Potassium Chloride Carbon Dioxide BUN 39 H Creatinine 4.1 H Glucose 108 H POC Glucose 110 H 124 H Lactic Acid Calcium 7.9 L Phosphorus Magnesium AST ALT Alkaline Phosphatase Troponin T C-Reactive Protein Total Protein Albumin LDL Cholesterol Direct HDL Cholesterol Urine Creatinine Hepatitis C Antibody Crossmatch Crossmatch [facility] 11/28/17 11/28/17 11/28/17 05:03 11:36 17:42 WBC RBC Hgb Hct MCV MCH MCHC RDW Plt Count Lymph % (Auto) [place] % (Auto) Eos % (Auto) Lymph # [place] # Eos # Seg Neutrophils % Seg Neuts % (Manual) Lymphocytes % (Manual) Monocytes % (Manual) Eosinophils % (Manual) Nucleated RBC % Seg Neutrophils # Seg Neutrophils # Man Lymphocytes # (Manual) Monocytes # (Manual) Eosinophils # (Manual) PT INR POC ABG pH POC ABG pCO2 POC ABG pO2 Sodium Potassium Chloride Carbon Dioxide BUN Creatinine Glucose POC Glucose 134 H 114 H 119 H Lactic Acid Calcium Phosphorus Magnesium AST ALT Alkaline Phosphatase Troponin T C-Reactive Protein Total Protein Albumin LDL Cholesterol Direct HDL Cholesterol Urine Creatinine Hepatitis C Antibody Crossmatch Crossmatch [facility] 11/29/17 11/29/17 11/29/17 00:22 05:25 05:25 WBC 12.3 H RBC 3.34 L Hgb 8.6 L Hct 27.3 L MCV 82 L MCH 26 L MCHC RDW 18.5 H Plt Count Lymph % (Auto) 3.7 L [place] % (Auto) 7.7 H Eos % (Auto) Lymph # 0.5 L [place] # 1.0 H Eos # Seg Neutrophils % 86.5 H Seg Neuts % (Manual) Lymphocytes % (Manual) Monocytes % (Manual) Eosinophils % (Manual) Nucleated RBC % Seg Neutrophils # 10.7 H Seg Neutrophils # Man Lymphocytes # (Manual) Monocytes # (Manual) Eosinophils # (Manual) PT INR POC ABG pH POC ABG pCO2 POC ABG pO2 Sodium Potassium Chloride Carbon Dioxide BUN 29 H Creatinine 3.5 H Glucose 109 H POC Glucose 137 H Lactic Acid Calcium 7.8 L Phosphorus Magnesium AST ALT Alkaline Phosphatase Troponin T C-Reactive Protein Total Protein Albumin LDL Cholesterol Direct HDL Cholesterol Urine Creatinine Hepatitis C Antibody Crossmatch Crossmatch [facility] 11/29/17 11/30/17 11/30/17 05:26 00:26 04:17 WBC RBC Hgb Hct MCV MCH MCHC RDW Plt Count Lymph % (Auto) [place] % (Auto) Eos % (Auto) Lymph # [place] # Eos # Seg Neutrophils % Seg Neuts % (Manual) Lymphocytes % (Manual) Monocytes % (Manual) Eosinophils % (Manual) Nucleated RBC % Seg Neutrophils # Seg Neutrophils # Man Lymphocytes # (Manual) Monocytes # (Manual) Eosinophils # (Manual) PT INR POC ABG pH POC ABG pCO2 POC ABG pO2 Sodium Potassium Chloride Carbon Dioxide BUN 38 H Creatinine 4.3 H Glucose 109 H POC Glucose 129 H 152 H Lactic Acid Calcium 7.8 L Phosphorus Magnesium AST ALT Alkaline Phosphatase Troponin T C-Reactive Protein Total Protein Albumin LDL Cholesterol Direct HDL Cholesterol Urine Creatinine Hepatitis C Antibody Crossmatch Crossmatch [facility] 11/30/17 11/30/17 11/30/17 12:17 16:23 23:35 WBC RBC Hgb Hct MCV MCH MCHC RDW Plt Count Lymph % (Auto) [place] % (Auto) Eos % (Auto) Lymph # [place] # Eos # Seg Neutrophils % Seg Neuts % (Manual) Lymphocytes % (Manual) Monocytes % (Manual) Eosinophils % (Manual) Nucleated RBC % Seg Neutrophils # Seg Neutrophils # Man Lymphocytes # (Manual) Monocytes # (Manual) Eosinophils # (Manual) PT INR POC ABG pH POC ABG pCO2 POC ABG pO2 Sodium Potassium Chloride Carbon Dioxide BUN Creatinine Glucose POC Glucose 170 H 114 H 122 H Lactic Acid Calcium Phosphorus Magnesium AST ALT Alkaline Phosphatase Troponin T C-Reactive Protein Total Protein Albumin LDL Cholesterol Direct HDL Cholesterol Urine Creatinine Hepatitis C Antibody Crossmatch Crossmatch [facility] 12/01/17 12/01/17 12/01/17 04:09 04:09 12:17 WBC 14.1 H RBC 3.32 L Hgb 8.6 L Hct 27.0 L MCV 81 L MCH 26 L MCHC RDW 18.7 H Plt Count Lymph % (Auto) 5.5 L [place] % (Auto) 9.7 H Eos % (Auto) Lymph # 0.8 L [place] # 1.4 H Eos # Seg Neutrophils % 82.9 H Seg Neuts % (Manual) Lymphocytes % (Manual) Monocytes % (Manual) Eosinophils % (Manual) Nucleated RBC % Seg Neutrophils # 11.7 H Seg Neutrophils # Man Lymphocytes # (Manual) Monocytes # (Manual) Eosinophils # (Manual) PT INR POC ABG pH POC ABG pCO2 POC ABG pO2 Sodium Potassium 3.4 L Chloride Carbon Dioxide BUN 21 H Creatinine 3.0 H Glucose 108 H POC Glucose 126 H Lactic Acid Calcium 8.0 L Phosphorus Magnesium AST ALT Alkaline Phosphatase Troponin T C-Reactive Protein Total Protein Albumin LDL Cholesterol Direct HDL Cholesterol Urine Creatinine Hepatitis C Antibody Crossmatch Crossmatch [facility] 12/02/17 12/03/17 12/03/17 23:46 02:52 05:54 WBC 17.2 H RBC 3.21 L Hgb 8.5 L Hct 25.8 L MCV 80 L MCH 26 L MCHC RDW 18.4 H Plt Count 128 L Lymph % (Auto) [place] % (Auto) Eos % (Auto) Lymph # [place] # Eos # Seg Neutrophils % Seg Neuts % (Manual) Lymphocytes % (Manual) Monocytes % (Manual) Eosinophils % (Manual) Nucleated RBC % Seg Neutrophils # Seg Neutrophils # Man Lymphocytes # (Manual) Monocytes # (Manual) Eosinophils # (Manual) PT INR POC ABG pH POC ABG pCO2 POC ABG pO2 Sodium Potassium Chloride Carbon Dioxide BUN Creatinine Glucose POC Glucose 125 H 107 H Lactic Acid Calcium Phosphorus Magnesium AST ALT Alkaline Phosphatase Troponin T C-Reactive Protein Total Protein Albumin LDL Cholesterol Direct HDL Cholesterol Urine Creatinine Hepatitis C Antibody Crossmatch Crossmatch [facility] 12/03/17 12/03/17 12/04/17 12:05 Unknown 12:26 WBC RBC Hgb Hct MCV MCH MCHC RDW Plt Count Lymph % (Auto) [place] % (Auto) Eos % (Auto) Lymph # [place] # Eos # Seg Neutrophils % Seg Neuts % (Manual) Lymphocytes % (Manual) Monocytes % (Manual) Eosinophils % (Manual) Nucleated RBC % Seg Neutrophils # Seg Neutrophils # Man Lymphocytes # (Manual) Monocytes # (Manual) Eosinophils # (Manual) PT INR POC ABG pH POC ABG pCO2 POC ABG pO2 Sodium Potassium Chloride Carbon Dioxide BUN 21 H Creatinine 2.8 H Glucose 113 H POC Glucose 106 H 119 H Lactic Acid Calcium Phosphorus Magnesium AST ALT Alkaline Phosphatase Troponin T C-Reactive Protein Total Protein Albumin LDL Cholesterol Direct HDL Cholesterol Urine Creatinine Hepatitis C Antibody Crossmatch Crossmatch [facility] 12/04/17 12/05/17 12/05/17 17:57 00:52 04:05 WBC RBC 2.96 L Hgb 7.7 L Hct 24.2 L MCV 82 L MCH 26 L MCHC RDW 18.8 H Plt Count 105 L Lymph % (Auto) 10.6 L [place] % (Auto) 12.1 H Eos % (Auto) 5.2 H Lymph # 1.1 L [place] # 1.3 H Eos # 0.5 H Seg Neutrophils % 71.3 H Seg Neuts % (Manual) Lymphocytes % (Manual) Monocytes % (Manual) Eosinophils % (Manual) Nucleated RBC % Seg Neutrophils # Seg Neutrophils # Man Lymphocytes # (Manual) Monocytes # (Manual) Eosinophils # (Manual) PT INR POC ABG pH POC ABG pCO2 POC ABG pO2 Sodium Potassium Chloride Carbon Dioxide BUN Creatinine Glucose POC Glucose 140 H 117 H Lactic Acid Calcium Phosphorus Magnesium AST ALT Alkaline Phosphatase Troponin T C-Reactive Protein Total Protein Albumin LDL Cholesterol Direct HDL Cholesterol Urine Creatinine Hepatitis C Antibody Crossmatch Crossmatch [facility] 12/05/17 12/05/17 12/06/17 04:05 22:50 08:18 WBC RBC 2.80 L Hgb 7.4 L Hct 23.0 L MCV 82 L MCH 27 L MCHC RDW 19.5 H Plt Count 125 L Lymph % (Auto) [place] % (Auto) Eos % (Auto) Lymph # [place] # Eos # Seg Neutrophils % Seg Neuts % (Manual) Lymphocytes % (Manual) Monocytes % (Manual) Eosinophils % (Manual) Nucleated RBC % Seg Neutrophils # Seg Neutrophils # Man Lymphocytes # (Manual) Monocytes # (Manual) Eosinophils # (Manual) PT INR POC ABG pH POC ABG pCO2 POC ABG pO2 Sodium Potassium Chloride 107.4 H Carbon Dioxide BUN Creatinine 2.5 H Glucose POC Glucose 112 H Lactic Acid Calcium 8.3 L Phosphorus Magnesium AST ALT Alkaline Phosphatase Troponin T C-Reactive Protein Total Protein Albumin LDL Cholesterol Direct HDL Cholesterol Urine Creatinine Hepatitis C Antibody Crossmatch Crossmatch [facility] 12/06/17 12/06/17 12/06/17 08:18 12:01 23:58 WBC RBC Hgb Hct MCV MCH MCHC RDW Plt Count Lymph % (Auto) [place] % (Auto) Eos % (Auto) Lymph # [place] # Eos # Seg Neutrophils % Seg Neuts % (Manual) Lymphocytes % (Manual) Monocytes % (Manual) Eosinophils % (Manual) Nucleated RBC % Seg Neutrophils # Seg Neutrophils # Man Lymphocytes # (Manual) Monocytes # (Manual) Eosinophils # (Manual) PT INR POC ABG pH POC ABG pCO2 POC ABG pO2 Sodium Potassium Chloride 108.4 H Carbon Dioxide BUN 28 H Creatinine 3.7 H Glucose 103 H POC Glucose 106 H 108 H Lactic Acid Calcium 8.0 L Phosphorus Magnesium AST ALT Alkaline Phosphatase Troponin T C-Reactive Protein Total Protein Albumin LDL Cholesterol Direct HDL Cholesterol Urine Creatinine Hepatitis C Antibody Crossmatch Crossmatch [facility] 12/07/17 12/07/17 12/07/17 05:47 05:47 18:03 WBC RBC 2.79 L Hgb 7.3 L Hct 22.8 L MCV 82 L MCH 26 L MCHC RDW 19.1 H Plt Count 101 L Lymph % (Auto) [place] % (Auto) Eos % (Auto) Lymph # [place] # Eos # Seg Neutrophils % Seg Neuts % (Manual) 72.0 H Lymphocytes % (Manual) 13.0 L Monocytes % (Manual) Eosinophils % (Manual) 9.0 H Nucleated RBC % Seg Neutrophils # Seg Neutrophils # Man Lymphocytes # (Manual) 1.1 L Monocytes # (Manual) Eosinophils # (Manual) 0.8 H PT INR POC ABG pH POC ABG pCO2 POC ABG pO2 Sodium 146 H Potassium Chloride 109.8 H Carbon Dioxide BUN 36 H Creatinine 4.0 H Glucose POC Glucose 143 H Lactic Acid Calcium 8.0 L Phosphorus Magnesium AST ALT Alkaline Phosphatase Troponin T C-Reactive Protein Total Protein Albumin LDL Cholesterol Direct HDL Cholesterol Urine Creatinine Hepatitis C Antibody Crossmatch Crossmatch [facility] 12/07/17 12/08/17 12/08/17 23:33 05:10 05:10 WBC RBC 2.91 L Hgb 7.5 L Hct 24.4 L MCV MCH 26 L MCHC 31 L RDW 19.7 H Plt Count 109 L Lymph % (Auto) [place] % (Auto) Eos % (Auto) Lymph # [place] # Eos # Seg Neutrophils % Seg Neuts % (Manual) Lymphocytes % (Manual) 11.0 L Monocytes % (Manual) Eosinophils % (Manual) 12.0 H Nucleated RBC % Seg Neutrophils # Seg Neutrophils # Man Lymphocytes # (Manual) 0.7 L Monocytes # (Manual) Eosinophils # (Manual) 0.7 H PT INR POC ABG pH POC ABG pCO2 POC ABG pO2 Sodium 147 H Potassium Chloride 110.4 H Carbon Dioxide BUN Creatinine 2.8 H Glucose POC Glucose 107 H Lactic Acid Calcium 7.8 L Phosphorus Magnesium AST ALT Alkaline Phosphatase Troponin T C-Reactive Protein Total Protein Albumin LDL Cholesterol Direct HDL Cholesterol Urine Creatinine Hepatitis C Antibody Crossmatch Crossmatch [facility] 12/09/17 12/09/17 12/09/17 04:18 04:18 12:16 WBC RBC Hgb 7.2 L Hct 23.2 L MCV MCH MCHC RDW Plt Count Lymph % (Auto) [place] % (Auto) Eos % (Auto) Lymph # [place] # Eos # Seg Neutrophils % Seg Neuts % (Manual) Lymphocytes % (Manual) Monocytes % (Manual) Eosinophils % (Manual) Nucleated RBC % Seg Neutrophils # Seg Neutrophils # Man Lymphocytes # (Manual) Monocytes # (Manual) Eosinophils # (Manual) PT INR POC ABG pH POC ABG pCO2 POC ABG pO2 Sodium 150 H Potassium Chloride 114.5 H Carbon Dioxide BUN 25 H Creatinine 3.3 H Glucose POC Glucose 142 H Lactic Acid Calcium 7.7 L Phosphorus Magnesium AST ALT Alkaline Phosphatase Troponin T C-Reactive Protein Total Protein Albumin LDL Cholesterol Direct HDL Cholesterol Urine Creatinine Hepatitis C Antibody Crossmatch Crossmatch [facility] 12/10/17 12/10/17 12/11/17 05:14 05:14 12:05 WBC RBC 2.81 L Hgb 7.4 L Hct 23.9 L MCV MCH 26 L MCHC 31 L RDW 19.1 H Plt Count 128 L Lymph % (Auto) [place] % (Auto) Eos % (Auto) Lymph # [place] # Eos # Seg Neutrophils % Seg Neuts % (Manual) 78.0 H Lymphocytes % (Manual) 8.0 L Monocytes % (Manual) Eosinophils % (Manual) 5.0 H Nucleated RBC % Seg Neutrophils # Seg Neutrophils # Man Lymphocytes # (Manual) 0.6 L Monocytes # (Manual) Eosinophils # (Manual) PT INR POC ABG pH POC ABG pCO2 POC ABG pO2 Sodium Potassium Chloride Carbon Dioxide BUN Creatinine 2.2 H Glucose POC Glucose 127 H Lactic Acid Calcium 7.8 L Phosphorus Magnesium AST ALT Alkaline Phosphatase Troponin T C-Reactive Protein Total Protein Albumin LDL Cholesterol Direct HDL Cholesterol Urine Creatinine Hepatitis C Antibody Crossmatch Crossmatch [facility] 12/11/17 12/11/17 12/11/17 15:26 18:36 23:40 WBC RBC Hgb Hct MCV MCH MCHC RDW Plt Count Lymph % (Auto) [place] % (Auto) Eos % (Auto) Lymph # [place] # Eos # Seg Neutrophils % Seg Neuts % (Manual) Lymphocytes % (Manual) Monocytes % (Manual) Eosinophils % (Manual) Nucleated RBC % Seg Neutrophils # Seg Neutrophils # Man Lymphocytes # (Manual) Monocytes # (Manual) Eosinophils # (Manual) PT INR POC ABG pH POC ABG pCO2 POC ABG pO2 Sodium Potassium 3.3 L Chloride Carbon Dioxide BUN Creatinine 1.6 H Glucose POC Glucose 106 H 110 H Lactic Acid Calcium 7.6 L Phosphorus Magnesium AST ALT Alkaline Phosphatase Troponin T C-Reactive Protein Total Protein Albumin LDL Cholesterol Direct HDL Cholesterol Urine Creatinine Hepatitis C Antibody Crossmatch Crossmatch [facility] 12/12/17 12/12/17 12/12/17 05:10 05:41 05:41 WBC RBC 3.17 L Hgb 8.1 L Hct 25.7 L MCV 81 L MCH 25 L MCHC 31 L RDW 19.2 H Plt Count Lymph % (Auto) [place] % (Auto) Eos % (Auto) Lymph # [place] # Eos # Seg Neutrophils % Seg Neuts % (Manual) 74.0 H Lymphocytes % (Manual) 6.0 L Monocytes % (Manual) Eosinophils % (Manual) 9.0 H Nucleated RBC % Seg Neutrophils # Seg Neutrophils # Man Lymphocytes # (Manual) 0.6 L Monocytes # (Manual) Eosinophils # (Manual) 0.9 H PT INR POC ABG pH POC ABG pCO2 POC ABG pO2 Sodium Potassium 3.5 L Chloride Carbon Dioxide BUN Creatinine 2.3 H Glucose 113 H POC Glucose 112 H Lactic Acid Calcium 7.5 L Phosphorus Magnesium AST ALT Alkaline Phosphatase Troponin T C-Reactive Protein Total Protein Albumin LDL Cholesterol Direct HDL Cholesterol Urine Creatinine Hepatitis C Antibody Crossmatch Crossmatch [facility] 12/13/17 12/13/17 12/13/17 06:14 12:00 17:37 WBC RBC Hgb Hct MCV MCH MCHC RDW Plt Count Lymph % (Auto) [place] % (Auto) Eos % (Auto) Lymph # [place] # Eos # Seg Neutrophils % Seg Neuts % (Manual) Lymphocytes % (Manual) Monocytes % (Manual) Eosinophils % (Manual) Nucleated RBC % Seg Neutrophils # Seg Neutrophils # Man Lymphocytes # (Manual) Monocytes # (Manual) Eosinophils # (Manual) PT INR POC ABG pH POC ABG pCO2 POC ABG pO2 Sodium Potassium Chloride Carbon Dioxide BUN Creatinine Glucose POC Glucose 130 H 133 H 136 H Lactic Acid Calcium Phosphorus Magnesium AST ALT Alkaline Phosphatase Troponin T C-Reactive Protein Total Protein Albumin LDL Cholesterol Direct HDL Cholesterol Urine Creatinine Hepatitis C Antibody Crossmatch Crossmatch [facility] 12/13/17 12/14/17 12/14/17 23:39 05:11 05:11 WBC RBC Hgb Hct MCV MCH MCHC RDW Plt Count Lymph % (Auto) [place] % (Auto) Eos % (Auto) Lymph # [place] # Eos # Seg Neutrophils % Seg Neuts % (Manual) Lymphocytes % (Manual) Monocytes % (Manual) Eosinophils % (Manual) Nucleated RBC % Seg Neutrophils # Seg Neutrophils # Man Lymphocytes # (Manual) Monocytes # (Manual) Eosinophils # (Manual) PT 15.4 H INR 1.17 H POC ABG pH POC ABG pCO2 POC ABG pO2 Sodium Potassium Chloride Carbon Dioxide 21 L BUN 26 H Creatinine 2.9 H Glucose POC Glucose 108 H Lactic Acid Calcium 7.2 L Phosphorus Magnesium AST ALT Alkaline Phosphatase Troponin T C-Reactive Protein Total Protein Albumin LDL Cholesterol Direct HDL Cholesterol Urine Creatinine Hepatitis C Antibody Crossmatch Crossmatch [facility] 12/14/17 12/14/17 12/14/17 12:00 16:01 18:24 WBC 12.9 H RBC 3.25 L Hgb 8.2 L Hct 26.2 L MCV 81 L MCH 25 L MCHC 31 L RDW 19.2 H Plt Count Lymph % (Auto) [place] % (Auto) Eos % (Auto) Lymph # [place] # Eos # Seg Neutrophils % Seg Neuts % (Manual) Lymphocytes % (Manual) Monocytes % (Manual) Eosinophils % (Manual) Nucleated RBC % Seg Neutrophils # Seg Neutrophils # Man Lymphocytes # (Manual) Monocytes # (Manual) Eosinophils # (Manual) PT INR POC ABG pH POC ABG pCO2 POC ABG pO2 Sodium Potassium Chloride Carbon Dioxide BUN Creatinine Glucose POC Glucose 138 H 120 H Lactic Acid Calcium Phosphorus Magnesium AST ALT Alkaline Phosphatase Troponin T C-Reactive Protein Total Protein Albumin LDL Cholesterol Direct HDL Cholesterol Urine Creatinine Hepatitis C Antibody Crossmatch Crossmatch [facility] 12/14/17 12/14/17 12/15/17 23:29 Unknown 05:57 WBC 12.5 H RBC 2.48 L Hgb 6.0 L Hct 24.4 L MCV 79 L MCH 24 L MCHC 30 L RDW 18.5 H Plt Count 131 L Lymph % (Auto) 7.0 L [place] % (Auto) 8.9 H Eos % (Auto) 8.3 H Lymph # 0.9 L [place] # 1.1 H Eos # 1.0 H Seg Neutrophils % 75.2 H Seg Neuts % (Manual) Lymphocytes % (Manual) Monocytes % (Manual) Eosinophils % (Manual) Nucleated RBC % Seg Neutrophils # 9.4 H Seg Neutrophils # Man Lymphocytes # (Manual) Monocytes # (Manual) Eosinophils # (Manual) PT INR POC ABG pH POC ABG pCO2 POC ABG pO2 Sodium Potassium Chloride Carbon Dioxide BUN Creatinine Glucose POC Glucose 110 H 113 H Lactic Acid Calcium Phosphorus Magnesium AST ALT Alkaline Phosphatase Troponin T C-Reactive Protein Total Protein Albumin LDL Cholesterol Direct HDL Cholesterol Urine Creatinine Hepatitis C Antibody Crossmatch Crossmatch [facility] 12/15/17 12/15/17 12/15/17 11:50 13:37 17:58 WBC RBC Hgb 7.3 L Hct 23.3 L MCV MCH MCHC RDW Plt Count Lymph % (Auto) [place] % (Auto) Eos % (Auto) Lymph # [place] # Eos # Seg Neutrophils % Seg Neuts % (Manual) Lymphocytes % (Manual) Monocytes % (Manual) Eosinophils % (Manual) Nucleated RBC % Seg Neutrophils # Seg Neutrophils # Man Lymphocytes # (Manual) Monocytes # (Manual) Eosinophils # (Manual) PT INR POC ABG pH POC ABG pCO2 POC ABG pO2 Sodium Potassium Chloride Carbon Dioxide BUN Creatinine Glucose POC Glucose 106 H 110 H Lactic Acid Calcium Phosphorus Magnesium AST ALT Alkaline Phosphatase Troponin T C-Reactive Protein Total Protein Albumin LDL Cholesterol Direct HDL Cholesterol Urine Creatinine Hepatitis C Antibody Crossmatch Crossmatch [facility] 12/15/17 12/16/17 12/16/17 23:30 04:55 05:14 WBC 13.2 H RBC 2.79 L Hgb 6.9 L Hct 22.2 L MCV 80 L MCH 25 L MCHC 31 L RDW 18.8 H Plt Count Lymph % (Auto) 7.3 L [place] % (Auto) 11.0 H Eos % (Auto) 8.2 H Lymph # 1.0 L [place] # 1.4 H Eos # 1.1 H Seg Neutrophils % 72.9 H Seg Neuts % (Manual) Lymphocytes % (Manual) Monocytes % (Manual) Eosinophils % (Manual) Nucleated RBC % Seg Neutrophils # 9.6 H Seg Neutrophils # Man Lymphocytes # (Manual) Monocytes # (Manual) Eosinophils # (Manual) PT INR POC ABG pH POC ABG pCO2 POC ABG pO2 Sodium 131 L D Potassium 2.8 L* D Chloride 93.2 L Carbon Dioxide BUN 24 H Creatinine 2.0 H Glucose POC Glucose 111 H Lactic Acid Calcium 7.7 L Phosphorus Magnesium AST ALT Alkaline Phosphatase Troponin T C-Reactive Protein Total Protein Albumin LDL Cholesterol Direct HDL Cholesterol Urine Creatinine Hepatitis C Antibody Crossmatch Crossmatch [facility] 12/16/17 12/16/17 12/16/17 13:01 17:32 23:39 WBC RBC Hgb Hct MCV MCH MCHC RDW Plt Count Lymph % (Auto) [place] % (Auto) Eos % (Auto) Lymph # [place] # Eos # Seg Neutrophils % Seg Neuts % (Manual) Lymphocytes % (Manual) Monocytes % (Manual) Eosinophils % (Manual) Nucleated RBC % Seg Neutrophils # Seg Neutrophils # Man Lymphocytes # (Manual) Monocytes # (Manual) Eosinophils # (Manual) PT INR POC ABG pH POC ABG pCO2 POC ABG pO2 Sodium Potassium Chloride Carbon Dioxide BUN Creatinine Glucose POC Glucose 121 H 107 H Lactic Acid Calcium Phosphorus Magnesium AST ALT Alkaline Phosphatase Troponin T C-Reactive Protein Total Protein Albumin LDL Cholesterol Direct HDL Cholesterol Urine Creatinine Hepatitis C Antibody Crossmatch Crossmatch [facility] See Detail 12/17/17 12/17/17 12/17/17 05:08 05:08 12:03 WBC 12.9 H RBC 2.88 L Hgb 7.2 L Hct 22.6 L MCV 78 L MCH 25 L MCHC RDW 18.3 H Plt Count Lymph % (Auto) 8.0 L [place] % (Auto) 8.6 H Eos % (Auto) Lymph # 1.0 L [place] # 1.1 H Eos # Seg Neutrophils % 79.3 H Seg Neuts % (Manual) Lymphocytes % (Manual) Monocytes % (Manual) Eosinophils % (Manual) Nucleated RBC % Seg Neutrophils # 10.2 H Seg Neutrophils # Man Lymphocytes # (Manual) Monocytes # (Manual) Eosinophils # (Manual) PT INR POC ABG pH POC ABG pCO2 POC ABG pO2 Sodium Potassium 3.4 L D Chloride Carbon Dioxide BUN Creatinine Glucose 104 H POC Glucose 109 H Lactic Acid Calcium 7.6 L Phosphorus Magnesium 1.30 L AST ALT Alkaline Phosphatase 177 H Troponin T C-Reactive Protein Total Protein Albumin 2.0 L LDL Cholesterol Direct HDL Cholesterol Urine Creatinine Hepatitis C Antibody Crossmatch Crossmatch [facility] 12/17/17 12/18/17 12/18/17 23:40 00:50 00:50 WBC 22.6 H RBC 2.76 L Hgb 6.7 L Hct 21.6 L MCV 78 L MCH 24 L MCHC 31 L RDW 18.4 H Plt Count Lymph % (Auto) [place] % (Auto) Eos % (Auto) Lymph # [place] # Eos # Seg Neutrophils % Seg Neuts % (Manual) Lymphocytes % (Manual) Monocytes % (Manual) Eosinophils % (Manual) Nucleated RBC % Seg Neutrophils # Seg Neutrophils # Man Lymphocytes # (Manual) Monocytes # (Manual) Eosinophils # (Manual) PT INR POC ABG pH POC ABG pCO2 POC ABG pO2 Sodium Potassium Chloride Carbon Dioxide BUN 22 H Creatinine 1.6 H Glucose 113 H POC Glucose 120 H Lactic Acid Calcium 7.8 L Phosphorus Magnesium 1.50 L AST ALT Alkaline Phosphatase Troponin T C-Reactive Protein Total Protein Albumin LDL Cholesterol Direct HDL Cholesterol Urine Creatinine Hepatitis C Antibody Crossmatch Crossmatch [facility] 12/18/17 12/18/17 12/18/17 05:34 12:00 18:07 WBC RBC Hgb Hct MCV MCH MCHC RDW Plt Count Lymph % (Auto) [place] % (Auto) Eos % (Auto) Lymph # [place] # Eos # Seg Neutrophils % Seg Neuts % (Manual) Lymphocytes % (Manual) Monocytes % (Manual) Eosinophils % (Manual) Nucleated RBC % Seg Neutrophils # Seg Neutrophils # Man Lymphocytes # (Manual) Monocytes # (Manual) Eosinophils # (Manual) PT INR POC ABG pH POC ABG pCO2 POC ABG pO2 Sodium Potassium Chloride Carbon Dioxide BUN Creatinine Glucose POC Glucose 132 H 136 H 122 H Lactic Acid Calcium Phosphorus Magnesium AST ALT Alkaline Phosphatase Troponin T C-Reactive Protein Total Protein Albumin LDL Cholesterol Direct HDL Cholesterol Urine Creatinine Hepatitis C Antibody Crossmatch Crossmatch [facility] 12/19/17 12/19/17 12/19/17 00:24 00:24 05:17 WBC 15.4 H RBC 2.41 L Hgb 6.1 L Hct 19.0 L* MCV 79 L MCH 25 L MCHC RDW 18.5 H Plt Count Lymph % (Auto) [place] % (Auto) Eos % (Auto) Lymph # [place] # Eos # Seg Neutrophils % Seg Neuts % (Manual) Lymphocytes % (Manual) Monocytes % (Manual) Eosinophils % (Manual) Nucleated RBC % Seg Neutrophils # Seg Neutrophils # Man Lymphocytes # (Manual) Monocytes # (Manual) Eosinophils # (Manual) PT INR POC ABG pH POC ABG pCO2 POC ABG pO2 Sodium Potassium 3.2 L Chloride Carbon Dioxide BUN Creatinine Glucose 117 H POC Glucose 132 H Lactic Acid Calcium 8.2 L Phosphorus Magnesium 1.50 L AST ALT Alkaline Phosphatase Troponin T C-Reactive Protein Total Protein Albumin LDL Cholesterol Direct HDL Cholesterol Urine Creatinine Hepatitis C Antibody Crossmatch Crossmatch [place] 12/19/17 12/19/17 12/19/17 09:00 09:00 18:01 WBC 12.4 H RBC 2.86 L Hgb 7.2 L Hct 22.6 L MCV 79 L MCH 25 L MCHC RDW 17.2 H Plt Count Lymph % (Auto) 6.8 L [place] % (Auto) 12.6 H Eos % (Auto) Lymph # 0.8 L [place] # 1.6 H Eos # Seg Neutrophils % 80.1 H Seg Neuts % (Manual) Lymphocytes % (Manual) Monocytes % (Manual) Eosinophils % (Manual) Nucleated RBC % Seg Neutrophils # 10.0 H Seg Neutrophils # Man Lymphocytes # (Manual) Monocytes # (Manual) Eosinophils # (Manual) PT INR POC ABG pH POC ABG pCO2 POC ABG pO2 Sodium Potassium 3.1 L Chloride Carbon Dioxide BUN 22 H Creatinine Glucose 113 H POC Glucose 117 H Lactic Acid Calcium 8.3 L Phosphorus Magnesium AST 54 H ALT Alkaline Phosphatase 204 H Troponin T C-Reactive Protein Total Protein 5.8 L Albumin 2.0 L LDL Cholesterol Direct HDL Cholesterol Urine Creatinine Hepatitis C Antibody Crossmatch Crossmatch [facility] 12/19/17 12/20/17 12/20/17 23:49 05:53 19:00 WBC RBC 3.03 L Hgb 7.7 L Hct 23.7 L MCV 78 L MCH 25 L MCHC RDW 17.2 H Plt Count Lymph % (Auto) [place] % (Auto) Eos % (Auto) Lymph # [place] # Eos # Seg Neutrophils % Seg Neuts % (Manual) 74.0 H Lymphocytes % (Manual) 6.0 L Monocytes % (Manual) 17.0 H Eosinophils % (Manual) Nucleated RBC % Seg Neutrophils # Seg Neutrophils # Man Lymphocytes # (Manual) 0.5 L Monocytes # (Manual) 1.5 H Eosinophils # (Manual) PT INR POC ABG pH POC ABG pCO2 POC ABG pO2 Sodium Potassium Chloride Carbon Dioxide BUN Creatinine Glucose POC Glucose 125 H 124 H Lactic Acid Calcium Phosphorus Magnesium AST ALT Alkaline Phosphatase Troponin T C-Reactive Protein Total Protein Albumin LDL Cholesterol Direct HDL Cholesterol Urine Creatinine Hepatitis C Antibody Crossmatch Crossmatch [place] 12/20/17 12/21/17 12/22/17 19:00 23:54 05:07 WBC RBC Hgb Hct MCV MCH MCHC RDW Plt Count Lymph % (Auto) [place] % (Auto) Eos % (Auto) Lymph # [place] # Eos # Seg Neutrophils % Seg Neuts % (Manual) Lymphocytes % (Manual) Monocytes % (Manual) Eosinophils % (Manual) Nucleated RBC % Seg Neutrophils # Seg Neutrophils # Man Lymphocytes # (Manual) Monocytes # (Manual) Eosinophils # (Manual) PT INR POC ABG pH POC ABG pCO2 POC ABG pO2 Sodium Potassium 3.3 L 2.9 L* Chloride Carbon Dioxide BUN 37 H 43 H Creatinine Glucose 114 H POC Glucose 109 H Lactic Acid Calcium 8.3 L 7.8 L Phosphorus 1.60 L Magnesium 1.50 L AST ALT Alkaline Phosphatase Troponin T C-Reactive Protein Total Protein Albumin LDL Cholesterol Direct HDL Cholesterol Urine Creatinine Hepatitis C Antibody Crossmatch Crossmatch [facility] 12/22/17 12/22/17 12/22/17 05:07 05:07 06:02 WBC 4.1 L RBC 3.09 L Hgb 7.7 L Hct 24.3 L MCV 79 L MCH 25 L MCHC RDW 17.8 H Plt Count Lymph % (Auto) [place] % (Auto) Eos % (Auto) Lymph # [place] # Eos # Seg Neutrophils % Seg Neuts % (Manual) Lymphocytes % (Manual) Monocytes % (Manual) Eosinophils % (Manual) Nucleated RBC % Seg Neutrophils # Seg Neutrophils # Man Lymphocytes # (Manual) Monocytes # (Manual) Eosinophils # (Manual) PT INR POC ABG pH POC ABG pCO2 POC ABG pO2 Sodium Potassium Chloride Carbon Dioxide BUN Creatinine Glucose POC Glucose 107 H Lactic Acid Calcium Phosphorus Magnesium 1.60 L AST ALT Alkaline Phosphatase Troponin T C-Reactive Protein Total Protein Albumin LDL Cholesterol Direct HDL Cholesterol Urine Creatinine Hepatitis C Antibody Crossmatch Crossmatch [place] 12/22/17 12/22/17 12/22/17 10:50 12:02 17:32 WBC RBC Hgb Hct MCV MCH MCHC RDW Plt Count Lymph % (Auto) [place] % (Auto) Eos % (Auto) Lymph # [place] # Eos # Seg Neutrophils % Seg Neuts % (Manual) Lymphocytes % (Manual) Monocytes % (Manual) Eosinophils % (Manual) Nucleated RBC % Seg Neutrophils # Seg Neutrophils # Man Lymphocytes # (Manual) Monocytes # (Manual) Eosinophils # (Manual) PT INR POC ABG pH POC ABG pCO2 POC ABG pO2 Sodium Potassium Chloride Carbon Dioxide BUN Creatinine Glucose POC Glucose 129 H 111 H Lactic Acid Calcium Phosphorus Magnesium AST ALT Alkaline Phosphatase Troponin T C-Reactive Protein Total Protein Albumin LDL Cholesterol Direct HDL Cholesterol Urine Creatinine 55.8 H Hepatitis C Antibody Crossmatch Crossmatch [facility] 12/22/17 12/22/17 12/23/17 19:03 23:57 05:55 WBC RBC Hgb Hct MCV MCH MCHC RDW Plt Count Lymph % (Auto) [place] % (Auto) Eos % (Auto) Lymph # [place] # Eos # Seg Neutrophils % Seg Neuts % (Manual) Lymphocytes % (Manual) Monocytes % (Manual) Eosinophils % (Manual) Nucleated RBC % Seg Neutrophils # Seg Neutrophils # Man Lymphocytes # (Manual) Monocytes # (Manual) Eosinophils # (Manual) PT INR POC ABG pH POC ABG pCO2 POC ABG pO2 Sodium Potassium 3.4 L 2.9 L* Chloride Carbon Dioxide BUN 40 H Creatinine Glucose 107 H POC Glucose 128 H Lactic Acid Calcium 7.9 L Phosphorus Magnesium AST ALT Alkaline Phosphatase Troponin T C-Reactive Protein Total Protein Albumin LDL Cholesterol Direct HDL Cholesterol Urine Creatinine Hepatitis C Antibody Crossmatch Crossmatch [place] 12/23/17 12/23/17 12/23/17 05:55 05:55 11:59 WBC 3.8 L RBC 3.10 L Hgb 7.7 L Hct 25.5 L MCV 82 L MCH 25 L MCHC 30 L RDW 17.9 H Plt Count Lymph % (Auto) [place] % (Auto) Eos % (Auto) Lymph # [place] # Eos # Seg Neutrophils % Seg Neuts % (Manual) Lymphocytes % (Manual) Monocytes % (Manual) Eosinophils % (Manual) Nucleated RBC % Seg Neutrophils # Seg Neutrophils # Man Lymphocytes # (Manual) Monocytes # (Manual) Eosinophils # (Manual) PT INR POC ABG pH POC ABG pCO2 POC ABG pO2 Sodium Potassium Chloride Carbon Dioxide BUN Creatinine Glucose POC Glucose 115 H Lactic Acid Calcium Phosphorus Magnesium 1.60 L AST ALT Alkaline Phosphatase Troponin T C-Reactive Protein Total Protein Albumin LDL Cholesterol Direct HDL Cholesterol Urine Creatinine Hepatitis C Antibody Crossmatch Crossmatch [place] 12/23/17 12/24/17 12/24/17 22:48 00:29 03:17 WBC RBC Hgb Hct MCV MCH MCHC RDW Plt Count Lymph % (Auto) [place] % (Auto) Eos % (Auto) Lymph # [place] # Eos # Seg Neutrophils % Seg Neuts % (Manual) Lymphocytes % (Manual) Monocytes % (Manual) Eosinophils % (Manual) Nucleated RBC % Seg Neutrophils # Seg Neutrophils # Man Lymphocytes # (Manual) Monocytes # (Manual) Eosinophils # (Manual) PT INR POC ABG pH POC ABG pCO2 POC ABG pO2 Sodium 146 H Potassium 2.9 L* 3.4 L Chloride Carbon Dioxide BUN 36 H Creatinine 0.7 L Glucose POC Glucose 111 H Lactic Acid Calcium 7.5 L Phosphorus Magnesium 1.60 L AST 76 H ALT 59 H Alkaline Phosphatase 294 H Troponin T C-Reactive Protein Total Protein 5.8 L Albumin 2.2 L LDL Cholesterol Direct HDL Cholesterol Urine Creatinine Hepatitis C Antibody Crossmatch Crossmatch [place] 12/24/17 12/24/17 12/24/17 03:17 05:14 17:05 WBC RBC 3.03 L Hgb 7.6 L Hct 23.7 L MCV 78 L MCH 25 L MCHC RDW 17.8 H Plt Count Lymph % (Auto) [place] % (Auto) Eos % (Auto) Lymph # [place] # Eos # Seg Neutrophils % Seg Neuts % (Manual) Lymphocytes % (Manual) Monocytes % (Manual) Eosinophils % (Manual) Nucleated RBC % Seg Neutrophils # Seg Neutrophils # Man Lymphocytes # (Manual) Monocytes # (Manual) Eosinophils # (Manual) PT INR POC ABG pH POC ABG pCO2 POC ABG pO2 Sodium Potassium Chloride Carbon Dioxide BUN Creatinine Glucose POC Glucose 127 H 132 H Lactic Acid Calcium Phosphorus Magnesium AST ALT Alkaline Phosphatase Troponin T C-Reactive Protein Total Protein Albumin LDL Cholesterol Direct HDL Cholesterol Urine Creatinine Hepatitis C Antibody Crossmatch Crossmatch [place] 12/25/17 12/25/17 12/25/17 00:03 04:34 06:25 WBC RBC Hgb Hct MCV MCH MCHC RDW Plt Count Lymph % (Auto) [place] % (Auto) Eos % (Auto) Lymph # [place] # Eos # Seg Neutrophils % Seg Neuts % (Manual) Lymphocytes % (Manual) Monocytes % (Manual) Eosinophils % (Manual) Nucleated RBC % Seg Neutrophils # Seg Neutrophils # Man Lymphocytes # (Manual) Monocytes # (Manual) Eosinophils # (Manual) PT INR POC ABG pH POC ABG pCO2 POC ABG pO2 Sodium Potassium Chloride Carbon Dioxide BUN 30 H Creatinine 0.6 L Glucose 114 H POC Glucose 128 H 136 H Lactic Acid Calcium 7.5 L Phosphorus Magnesium AST 84 H ALT 82 H Alkaline Phosphatase 322 H Troponin T C-Reactive Protein Total Protein 6.0 L Albumin 2.3 L LDL Cholesterol Direct HDL Cholesterol Urine Creatinine Hepatitis C Antibody Crossmatch Crossmatch [place] 12/25/17 12/25/17 12/26/17 12:02 18:28 00:03 WBC RBC Hgb Hct MCV MCH MCHC RDW Plt Count Lymph % (Auto) [place] % (Auto) Eos % (Auto) Lymph # [place] # Eos # Seg Neutrophils % Seg Neuts % (Manual) Lymphocytes % (Manual) Monocytes % (Manual) Eosinophils % (Manual) Nucleated RBC % Seg Neutrophils # Seg Neutrophils # Man Lymphocytes # (Manual) Monocytes # (Manual) Eosinophils # (Manual) PT INR POC ABG pH POC ABG pCO2 POC ABG pO2 Sodium Potassium Chloride Carbon Dioxide BUN Creatinine Glucose POC Glucose 158 H 113 H 117 H Lactic Acid Calcium Phosphorus Magnesium AST ALT Alkaline Phosphatase Troponin T C-Reactive Protein Total Protein Albumin LDL Cholesterol Direct HDL Cholesterol Urine Creatinine Hepatitis C Antibody Crossmatch Crossmatch [place] 12/26/17 12/26/17 12/26/17 04:26 06:35 08:47 WBC RBC Hgb Hct MCV MCH MCHC RDW Plt Count Lymph % (Auto) [place] % (Auto) Eos % (Auto) Lymph # [place] # Eos # Seg Neutrophils % Seg Neuts % (Manual) Lymphocytes % (Manual) Monocytes % (Manual) Eosinophils % (Manual) Nucleated RBC % Seg Neutrophils # Seg Neutrophils # Man Lymphocytes # (Manual) Monocytes # (Manual) Eosinophils # (Manual) PT INR POC ABG pH POC ABG pCO2 POC ABG pO2 Sodium Potassium 5.4 H D 3.3 L D Chloride Carbon Dioxide 21 L BUN 39 H Creatinine 0.7 L Glucose 121 H POC Glucose 122 H Lactic Acid Calcium 7.8 L Phosphorus Magnesium AST 144 H ALT 98 H Alkaline Phosphatase 330 H Troponin T C-Reactive Protein Total Protein 6.1 L Albumin 2.1 L LDL Cholesterol Direct HDL Cholesterol Urine Creatinine Hepatitis C Antibody Crossmatch Crossmatch [place] 12/26/17 12/26/17 12/27/17 12:29 18:27 07:34 WBC RBC Hgb Hct MCV MCH MCHC RDW Plt Count Lymph % (Auto) [place] % (Auto) Eos % (Auto) Lymph # [place] # Eos # Seg Neutrophils % Seg Neuts % (Manual) Lymphocytes % (Manual) Monocytes % (Manual) Eosinophils % (Manual) Nucleated RBC % Seg Neutrophils # Seg Neutrophils # Man Lymphocytes # (Manual) Monocytes # (Manual) Eosinophils # (Manual) PT INR POC ABG pH POC ABG pCO2 POC ABG pO2 Sodium Potassium 3.1 L Chloride Carbon Dioxide BUN Creatinine 0.5 L Glucose POC Glucose 128 H 121 H Lactic Acid Calcium 7.7 L Phosphorus Magnesium AST 74 H ALT 80 H Alkaline Phosphatase 306 H Troponin T C-Reactive Protein Total Protein 6.1 L Albumin 2.1 L LDL Cholesterol Direct HDL Cholesterol Urine Creatinine Hepatitis C Antibody Crossmatch Crossmatch [place] 12/27/17 07:34 WBC RBC Hgb Hct MCV MCH MCHC RDW Plt Count Lymph % (Auto) [place] % (Auto) Eos % (Auto) Lymph # [place] # Eos # Seg Neutrophils % Seg Neuts % (Manual) Lymphocytes % (Manual) Monocytes % (Manual) Eosinophils % (Manual) Nucleated RBC % Seg Neutrophils # Seg Neutrophils # Man Lymphocytes # (Manual) Monocytes # (Manual) Eosinophils # (Manual) PT INR POC ABG pH POC ABG pCO2 POC ABG pO2 Sodium Potassium Chloride Carbon Dioxide BUN Creatinine Glucose POC Glucose Lactic Acid Calcium Phosphorus Magnesium 1.30 L AST ALT Alkaline Phosphatase Troponin T C-Reactive Protein Total Protein Albumin LDL Cholesterol Direct HDL Cholesterol Urine Creatinine Hepatitis C Antibody Crossmatch Crossmatch [facility] Chest x-ray: report reviewed, image reviewed
[2017-12-27] MEDS: POTASSIUM CHLORIDE FEEDTUBE SCH (22:09)
[2017-12-28 05:32] LABS: Basophils # (Auto) 0.1 K/mm3 (0.0-0.1); Eosinophils # (Auto) 0.7 K/mm3 (0.0-0.4); Eosinophils % (Auto) 6.7 % (0.0-4.3); Hematocrit 23.6 % (35.5-45.6); Hemoglobin 7.2 gm/dl (11.8-15.2); Lymphocytes # (Auto) 1.1 K/mm3 (1.2-5.4); Mean Corpuscular HGB Conc 31 % (32-34); Mean Corpuscular Volume 79 fl (84-94); Monocytes # (Auto) 1.1 K/mm3 (0.0-0.8); Monocytes % (Auto) 10.2 % (0.0-7.3); Platelet Count 201 K/mm3 (140-440); Red Cell Distribution Width 18.3 % (13.2-15.2)
[2017-12-28 05:40] LABS: Mean Corpuscular Hemoglobin 24 pg (28-32)
[2017-12-28 05:46] LABS: Alanine Aminotransferase 62 units/L (7-56); BUN/Creatinine Ratio 43; Blood Urea Nitrogen 17 mg/dL (9-20); Calcium 7.8 mg/dL (8.4-10.2); Hemolysis Index 59
--- NOTE | 2017-12-28 08:10 | Progress Note ---
Assessment and Plan Assessment * Acute kidney injury secondary to ATN --Intermittent HD started on 11/23/17 * Sepsis secondary to peritonitis/PEG malpositioning --RUQ/LUQ drains: Enterobacter, Heather (non albicans) * Aspiration pneumonitis related to above * Anemia * Acute CVA * Carotid artery disease s/p CEA * Encephalopathy Plan: * off dialysis. follow up 24hr crcl 65ml/min * vasc cath has been removed * replete k and mag prn, Hypomagnesemia and hypokalemia has been corrected * Continue 1/2 ns .Discontinue kcl * Abx per ID * prbcs prn * Strict I/O * Avoid potential nephrptoxins * Dose medications for renal function * Replete lytes prn * Avoid nephrotoxins Subjective Date of service: 12/28/17 Principal diagnosis: Acute hypoxic respiratory failure, s/p Trach Interval history: patient currently with trache . Awake . Comfortable . Dubhoff tube in place Objective - Vital Signs Vital signs: Vital Signs - 12hr 12/27/17 12/27/17 12/27/17 21:00 22:00 22:09 Temperature Pulse Rate 108 H 104 H 88 Pulse Rate [ 100 H Right From Monitor] Respiratory 32 H 26 H Rate Blood Pressure 127/78 136/88 136/88 O2 Sat by Pulse 100 99 Oximetry O2 Sat by Pulse Oximetry [ Assessment] 12/27/17 12/27/17 12/27/17 22:30 23:00 23:30 Temperature Pulse Rate 100 H 100 H Pulse Rate [ Right From Monitor] Respiratory 29 H 27 H Rate Blood Pressure 150/93 O2 Sat by Pulse 99 98 98 Oximetry O2 Sat by Pulse Oximetry [ Assessment] 12/27/17 12/28/17 12/28/17 23:45 00:00 01:00 Temperature 97.4 F L Pulse Rate 99 H 94 H Pulse Rate [ Right From Monitor] Respiratory 31 H 25 H Rate Blood Pressure 150/93 153/95 O2 Sat by Pulse 100 99 Oximetry O2 Sat by Pulse 99 Oximetry [ Assessment] 12/28/17 12/28/17 12/28/17 02:00 03:00 04:00 Temperature 97.2 F L Pulse Rate 94 H 98 H 111 H Pulse Rate [ Right From Monitor] Respiratory 23 23 24 Rate Blood Pressure 149/95 134/87 134/87 O2 Sat by Pulse 98 100 99 Oximetry O2 Sat by Pulse Oximetry [ Assessment] 12/28/17 12/28/17 12/28/17 05:00 06:00 07:00 Temperature Pulse Rate 102 H 106 H 115 H Pulse Rate [ Right From Monitor] Respiratory 25 H 28 H 27 H Rate Blood Pressure 141/85 140/90 140/90 O2 Sat by Pulse 97 100 99 Oximetry O2 Sat by Pulse Oximetry [ Assessment] 12/28/17 12/28/17 07:46 07:57 Temperature 97.8 F Pulse Rate Pulse Rate [ Right From Monitor] Respiratory Rate Blood Pressure O2 Sat by Pulse 100 Oximetry O2 Sat by Pulse 100 Oximetry [ Assessment] - General Appearance General appearance: well-developed, well-nourished, appears stated age EENT: mucous membranes moist Neck: other (trache ) Respiratory: Present: [facility] Cardiology: regular, normal heart rate, S1S2, no murmurs Gastrointestinal: normoactive bowel sounds, other (drain noted on the left flank . Midline dressing ) Musculoskeletal: other (No edema . Condom catheter and rectal tube in place ) - Lab 12/28/17 04:59 12/28/17 04:59 Most recent lab results Calcium 7.8 mg/dL (8.4-10.2) L 12/28/17 04:59 Phosphorus 1.60 mg/dL (2.5-4.5) L 12/20/17 19:00 Magnesium 1.70 mg/dL (1.7-2.3) 12/28/17 04:59 Urine Creatinine 55.8 mg/dL (0.1-20.0) H 12/22/17 10:50
[2017-12-28] MEDS: POTASSIUM CHLORIDE FEEDTUBE SCH ×2 (09:10→21:43)
[2017-12-28] MEDS: PREVACID SOLUTAB FEEDTUBE SCH ×2 (09:10→21:43)
[2017-12-28] MEDS: NACL 0.45% 1000 ML 1,000 ML IV SCH (09:11)
[2017-12-28] MEDS: LOPRESSOR PO SCH ×2 (09:11→21:43)
[2017-12-28] MEDS: MAG-OX PO SCH ×2 (09:11→21:43)
--- NOTE | 2017-12-28 10:21 | Progress Note ---
Assessment and Plan 67 y/o male with acute on chronic respiratory failure, now trached, with peritonitis from dislodged peg tube s/p 2 IR drains now with NGT feedings. No new recs for today. Please see below. 1. Trach Care. Trach is permanent as patient cannot clear his secretions himself 2. Off IV abx therapy now 3. Electrolytes per primary and renal, now off HD 4. Will continue to follow along with you. Subjective Date of service: 12/28/17 Principal diagnosis: Acute hypoxic respiratory failure, s/p Trach Interval history: No acute events. Pulm status is unchanged. Objective Vital Signs - 12hr 12/27/17 12/27/17 12/27/17 22:30 23:00 23:30 Temperature Pulse Rate 100 H 100 H Respiratory 29 H 27 H Rate Blood Pressure 150/93 O2 Sat by Pulse 99 98 98 Oximetry O2 Sat by Pulse Oximetry [ Assessment] 12/27/17 12/28/17 12/28/17 23:45 00:00 01:00 Temperature 97.4 F L Pulse Rate 99 H 94 H Respiratory 31 H 25 H Rate Blood Pressure 150/93 153/95 O2 Sat by Pulse 100 99 Oximetry O2 Sat by Pulse 99 Oximetry [ Assessment] 12/28/17 12/28/17 12/28/17 02:00 03:00 04:00 Temperature 97.2 F L Pulse Rate 94 H 98 H 111 H Respiratory 23 23 24 Rate Blood Pressure 149/95 134/87 134/87 O2 Sat by Pulse 98 100 99 Oximetry O2 Sat by Pulse Oximetry [ Assessment] 12/28/17 12/28/17 12/28/17 05:00 06:00 07:00 Temperature Pulse Rate 102 H 106 H 115 H Respiratory 25 H 28 H 27 H Rate Blood Pressure 141/85 140/90 140/90 O2 Sat by Pulse 97 100 99 Oximetry O2 Sat by Pulse Oximetry [ Assessment] 12/28/17 12/28/17 12/28/17 07:46 07:57 09:11 Temperature 97.8 F Pulse Rate 104 H Respiratory Rate Blood Pressure 140/82 O2 Sat by Pulse 100 Oximetry O2 Sat by Pulse 100 Oximetry [ Assessment] Constitutional: no acute distress, alert Eyes: non-icteric ENT: oropharynx moist Neck: supple (trach in position) Effort: normal Ascultation: Bilateral: clear, rales (few bilaterally), rhonchi (mild bilateral) , other (coarse BS bilaterally) Cardiovascular: regular rate and rhythm Gastrointestinal: normoactive bowel sounds, soft, non-tender, other (drains in place) Integumentary: normal Extremities: no cyanosis, pink and warm, edema (2+ bilateral LE edema) Neurologic: other (L hemiparesis,awake, response to my voice) Psychiatric: other (unable to assess) CBC and BMP: 12/28/17 04:59 12/28/17 04:59 ABG, PT/INR, D-dimer: ABG POC ABG pH 7.505 (7.35-7.45) H 11/23/17 04:56 POC ABG pCO2 26.3 (35-45) L 11/23/17 04:56 POC ABG pO2 100 (80-105) 11/23/17 04:56 POC ABG HCO3 20.8 11/23/17 04:56 POC ABG Total CO2 22 11/23/17 04:56 POC ABG O2 Sat 98 11/23/17 04:56 PT/INR, D-dimer PT 15.4 Sec. (12.2-14.9) H 12/14/17 05:11 INR 1.17 (0.87-1.13) H 12/14/17 05:11 Abnormal lab findings: Abnormal Labs 11/11/17 11/11/17 11/11/17 23:18 23:20 23:20 WBC RBC Hgb 10.4 L Hct 32.6 L D MCV MCH 27 L MCHC RDW 17.4 H Plt Count 105 L Lymph % (Auto) [place] % (Auto) Eos % (Auto) Lymph # [place] # Eos # Seg Neutrophils % Seg Neuts % (Manual) Lymphocytes % (Manual) 8.0 L Monocytes % (Manual) Eosinophils % (Manual) Nucleated RBC % 1.0 H Seg Neutrophils # Seg Neutrophils # Man Lymphocytes # (Manual) 0.7 L Monocytes # (Manual) Eosinophils # (Manual) PT INR POC ABG pH 7.550 H POC ABG pCO2 31.6 L POC ABG pO2 Sodium 146 H Potassium Chloride Carbon Dioxide BUN 26 H Creatinine 1.7 H D Glucose 133 H POC Glucose Lactic Acid Calcium Phosphorus Magnesium AST ALT Alkaline Phosphatase Troponin T 0.117 H* C-Reactive Protein Total Protein Albumin 2.5 L LDL Cholesterol Direct 42 L HDL Cholesterol 24 L Urine Creatinine Hepatitis C Antibody Crossmatch Crossmatch Prewarmed 11/11/17 11/12/17 11/12/17 23:20 00:23 00:23 WBC RBC Hgb Hct MCV MCH MCHC RDW Plt Count Lymph % (Auto) [place] % (Auto) Eos % (Auto) Lymph # [place] # Eos # Seg Neutrophils % Seg Neuts % (Manual) Lymphocytes % (Manual) Monocytes % (Manual) Eosinophils % (Manual) Nucleated RBC % Seg Neutrophils # Seg Neutrophils # Man Lymphocytes # (Manual) Monocytes # (Manual) Eosinophils # (Manual) PT 16.7 H INR 1.28 H POC ABG pH POC ABG pCO2 POC ABG pO2 Sodium Potassium Chloride Carbon Dioxide BUN Creatinine Glucose POC Glucose Lactic Acid 3.20 H* Calcium Phosphorus Magnesium AST ALT Alkaline Phosphatase Troponin T C-Reactive Protein 25.70 H Total Protein Albumin LDL Cholesterol Direct HDL Cholesterol Urine Creatinine Hepatitis C Antibody Crossmatch Crossmatch Prewarmed 11/12/17 11/12/17 11/12/17 00:46 01:27 01:27 WBC RBC Hgb Hct MCV MCH MCHC RDW Plt Count Lymph % (Auto) [place] % (Auto) Eos % (Auto) Lymph # [place] # Eos # Seg Neutrophils % Seg Neuts % (Manual) Lymphocytes % (Manual) Monocytes % (Manual) Eosinophils % (Manual) Nucleated RBC % Seg Neutrophils # Seg Neutrophils # Man Lymphocytes # (Manual) Monocytes # (Manual) Eosinophils # (Manual) PT INR POC ABG pH 7.495 H POC ABG pCO2 32.0 L POC ABG pO2 64 L Sodium Potassium Chloride Carbon Dioxide BUN Creatinine Glucose POC Glucose Lactic Acid 3.70 H* Calcium Phosphorus Magnesium AST ALT Alkaline Phosphatase Troponin T 0.096 H C-Reactive Protein Total Protein Albumin LDL Cholesterol Direct HDL Cholesterol Urine Creatinine Hepatitis C Antibody Crossmatch Crossmatch Prewarmed 11/12/17 11/12/17 11/12/17 03:21 04:50 06:27 WBC RBC Hgb Hct MCV MCH MCHC RDW Plt Count Lymph % (Auto) [place] % (Auto) Eos % (Auto) Lymph # [place] # Eos # Seg Neutrophils % Seg Neuts % (Manual) Lymphocytes % (Manual) Monocytes % (Manual) Eosinophils % (Manual) Nucleated RBC % Seg Neutrophils # Seg Neutrophils # Man Lymphocytes # (Manual) Monocytes # (Manual) Eosinophils # (Manual) PT INR POC ABG pH POC ABG pCO2 POC ABG pO2 109 H Sodium Potassium Chloride Carbon Dioxide BUN Creatinine Glucose POC Glucose Lactic Acid 3.80 H* 2.20 H* Calcium Phosphorus Magnesium AST ALT Alkaline Phosphatase Troponin T C-Reactive Protein Total Protein Albumin LDL Cholesterol Direct HDL Cholesterol Urine Creatinine Hepatitis C Antibody Crossmatch Crossmatch Prewarmed 11/12/17 11/12/17 11/12/17 09:24 09:24 09:24 WBC RBC Hgb 10.4 L Hct 33.4 L MCV MCH MCHC RDW Plt Count Lymph % (Auto) [place] % (Auto) Eos % (Auto) Lymph # [place] # Eos # Seg Neutrophils % Seg Neuts % (Manual) Lymphocytes % (Manual) Monocytes % (Manual) Eosinophils % (Manual) Nucleated RBC % Seg Neutrophils # Seg Neutrophils # Man Lymphocytes # (Manual) Monocytes # (Manual) Eosinophils # (Manual) PT INR POC ABG pH POC ABG pCO2 POC ABG pO2 Sodium Potassium Chloride Carbon Dioxide BUN Creatinine Glucose POC Glucose Lactic Acid 2.90 H* Calcium Phosphorus Magnesium AST ALT Alkaline Phosphatase Troponin T 0.091 H C-Reactive Protein Total Protein Albumin LDL Cholesterol Direct HDL Cholesterol Urine Creatinine Hepatitis C Antibody Crossmatch Crossmatch Prewarmed 11/12/17 11/12/17 11/12/17 12:56 20:03 Unknown WBC RBC Hgb Hct MCV MCH MCHC RDW Plt Count Lymph % (Auto) [place] % (Auto) Eos % (Auto) Lymph # [place] # Eos # Seg Neutrophils % Seg Neuts % (Manual) Lymphocytes % (Manual) Monocytes % (Manual) Eosinophils % (Manual) Nucleated RBC % Seg Neutrophils # Seg Neutrophils # Man Lymphocytes # (Manual) Monocytes # (Manual) Eosinophils # (Manual) PT INR POC ABG pH POC ABG pCO2 POC ABG pO2 Sodium Potassium Chloride Carbon Dioxide BUN Creatinine Glucose POC Glucose Lactic Acid 3.60 H* Calcium Phosphorus Magnesium AST ALT Alkaline Phosphatase Troponin T 0.102 H* 0.156 H* D C-Reactive Protein Total Protein Albumin LDL Cholesterol Direct HDL Cholesterol Urine Creatinine Hepatitis C Antibody Crossmatch Crossmatch Prewarmed 11/12/17 11/13/17 11/13/17 Unknown 04:50 04:50 WBC 12.2 H RBC 3.51 L Hgb 9.3 L Hct 30.1 L MCV MCH 26 L MCHC 31 L RDW 18.0 H Plt Count 128 L Lymph % (Auto) 8.6 L [place] % (Auto) 11.1 H Eos % (Auto) Lymph # 1.1 L [place] # 1.4 H Eos # Seg Neutrophils % 80.1 H Seg Neuts % (Manual) Lymphocytes % (Manual) Monocytes % (Manual) Eosinophils % (Manual) Nucleated RBC % Seg Neutrophils # 9.8 H Seg Neutrophils # Man Lymphocytes # (Manual) Monocytes # (Manual) Eosinophils # (Manual) PT INR POC ABG pH POC ABG pCO2 POC ABG pO2 Sodium 149 H Potassium 5.1 H Chloride 114.4 H Carbon Dioxide 18 L BUN 52 H Creatinine 3.3 H D Glucose 129 H POC Glucose Lactic Acid Calcium 7.9 L Phosphorus Magnesium AST ALT Alkaline Phosphatase Troponin T 0.098 H C-Reactive Protein Total Protein Albumin LDL Cholesterol Direct HDL Cholesterol Urine Creatinine Hepatitis C Antibody Crossmatch Crossmatch Prewarmed 11/13/17 11/13/17 11/14/17 04:51 09:34 04:21 WBC RBC Hgb Hct MCV MCH MCHC RDW Plt Count Lymph % (Auto) [place] % (Auto) Eos % (Auto) Lymph # [place] # Eos # Seg Neutrophils % Seg Neuts % (Manual) Lymphocytes % (Manual) Monocytes % (Manual) Eosinophils % (Manual) Nucleated RBC % Seg Neutrophils # Seg Neutrophils # Man Lymphocytes # (Manual) Monocytes # (Manual) Eosinophils # (Manual) PT INR POC ABG pH POC ABG pCO2 30.1 L 29.8 L POC ABG pO2 135 H Sodium Potassium Chloride Carbon Dioxide BUN Creatinine Glucose POC Glucose Lactic Acid 2.10 H* Calcium Phosphorus Magnesium AST ALT Alkaline Phosphatase Troponin T C-Reactive Protein Total Protein Albumin LDL Cholesterol Direct HDL Cholesterol Urine Creatinine Hepatitis C Antibody Crossmatch Crossmatch Prewarmed 11/15/17 11/15/17 11/16/17 04:52 15:50 05:17 WBC RBC Hgb Hct MCV MCH MCHC RDW Plt Count Lymph % (Auto) [place] % (Auto) Eos % (Auto) Lymph # [place] # Eos # Seg Neutrophils % Seg Neuts % (Manual) Lymphocytes % (Manual) Monocytes % (Manual) Eosinophils % (Manual) Nucleated RBC % Seg Neutrophils # Seg Neutrophils # Man Lymphocytes # (Manual) Monocytes # (Manual) Eosinophils # (Manual) PT INR POC ABG pH POC ABG pCO2 29.5 L 31.5 L POC ABG pO2 115 H 122 H Sodium 154 H Potassium Chloride 117.9 H Carbon Dioxide 19 L BUN 87 H Creatinine 4.1 H Glucose POC Glucose Lactic Acid Calcium 8.1 L Phosphorus Magnesium AST ALT Alkaline Phosphatase Troponin T C-Reactive Protein Total Protein Albumin LDL Cholesterol Direct HDL Cholesterol Urine Creatinine Hepatitis C Antibody Crossmatch Crossmatch Prewarmed 11/16/17 11/17/17 11/17/17 16:37 04:07 10:00 WBC 14.7 H RBC 3.23 L Hgb 8.3 L Hct 28.1 L MCV MCH 26 L MCHC 30 L RDW 18.8 H Plt Count Lymph % (Auto) [place] % (Auto) Eos % (Auto) Lymph # [place] # Eos # Seg Neutrophils % Seg Neuts % (Manual) 75 H Lymphocytes % (Manual) 8.0 L Monocytes % (Manual) Eosinophils % (Manual) Nucleated RBC % 1.0 H Seg Neutrophils # Seg Neutrophils # Man 11.0 H Lymphocytes # (Manual) Monocytes # (Manual) 0.9 H Eosinophils # (Manual) PT INR POC ABG pH POC ABG pCO2 POC ABG pO2 Sodium 153 H 155 H Potassium Chloride 117.3 H 119.4 H Carbon Dioxide 19 L 20 L BUN 90 H 89 H Creatinine 3.9 H 3.6 H Glucose 111 H 115 H POC Glucose Lactic Acid Calcium 8.1 L 8.0 L Phosphorus Magnesium AST ALT Alkaline Phosphatase Troponin T C-Reactive Protein Total Protein Albumin LDL Cholesterol Direct HDL Cholesterol Urine Creatinine Hepatitis C Antibody Crossmatch Crossmatch P[place]armed 11/18/17 11/18/17 11/18/17 04:34 04:34 04:34 WBC 15.5 H RBC 3.13 L Hgb 8.1 L Hct 26.3 L MCV MCH 26 L MCHC 31 L RDW 18.6 H Plt Count Lymph % (Auto) [place] % (Auto) Eos % (Auto) Lymph # [place] # Eos # Seg Neutrophils % Seg Neuts % (Manual) 81.0 H Lymphocytes % (Manual) 7.0 L Monocytes % (Manual) Eosinophils % (Manual) Nucleated RBC % 1.0 H Seg Neutrophils # Seg Neutrophils # Man 12.6 H Lymphocytes # (Manual) 1.1 L Monocytes # (Manual) Eosinophils # (Manual) PT 16.7 H INR 1.30 H POC ABG pH POC ABG pCO2 POC ABG pO2 Sodium 155 H Potassium 3.2 L Chloride 121.0 H Carbon Dioxide 20 L BUN 74 H Creatinine 2.9 H Glucose 126 H POC Glucose Lactic Acid Calcium 7.9 L Phosphorus Magnesium AST ALT Alkaline Phosphatase Troponin T C-Reactive Protein Total Protein Albumin LDL Cholesterol Direct HDL Cholesterol Urine Creatinine Hepatitis C Antibody Crossmatch Crossmatch P[place]armed 11/19/17 11/19/17 11/20/17 04:44 04:44 00:38 WBC 19.0 H 22.2 H RBC 3.20 L 3.17 L Hgb 8.4 L 7.9 L Hct 27.9 L 26.4 L MCV 83 L MCH 26 L 25 L MCHC 30 L 30 L RDW 19.1 H 18.9 H Plt Count Lymph % (Auto) [place] % (Auto) Eos % (Auto) Lymph # [place] # Eos # Seg Neutrophils % Seg Neuts % (Manual) 83.0 H Lymphocytes % (Manual) 3.0 L Monocytes % (Manual) 9.0 H Eosinophils % (Manual) Nucleated RBC % Seg Neutrophils # Seg Neutrophils # Man 18.4 H Lymphocytes # (Manual) 0.7 L Monocytes # (Manual) 2.0 H Eosinophils # (Manual) PT INR POC ABG pH POC ABG pCO2 POC ABG pO2 Sodium 152 H Potassium Chloride 117.1 H Carbon Dioxide 17 L BUN 66 H Creatinine 2.8 H Glucose 119 H POC Glucose Lactic Acid Calcium 7.8 L Phosphorus Magnesium 2.70 H AST ALT Alkaline Phosphatase Troponin T C-Reactive Protein Total Protein Albumin LDL Cholesterol Direct HDL Cholesterol Urine Creatinine Hepatitis C Antibody Crossmatch Crossmatch Prewarmed 11/20/17 11/20/17 11/20/17 03:29 04:48 13:38 WBC RBC Hgb Hct MCV MCH MCHC RDW Plt Count Lymph % (Auto) [place] % (Auto) Eos % (Auto) Lymph # [place] # Eos # Seg Neutrophils % Seg Neuts % (Manual) Lymphocytes % (Manual) Monocytes % (Manual) Eosinophils % (Manual) Nucleated RBC % Seg Neutrophils # Seg Neutrophils # Man Lymphocytes # (Manual) Monocytes # (Manual) Eosinophils # (Manual) PT INR POC ABG pH POC ABG pCO2 29.4 L POC ABG pO2 Sodium 148 H Potassium 3.4 L Chloride 113.7 H Carbon Dioxide 18 L BUN 59 H Creatinine 2.7 H Glucose 113 H POC Glucose 128 H Lactic Acid Calcium 7.8 L Phosphorus Magnesium AST ALT Alkaline Phosphatase Troponin T C-Reactive Protein Total Protein Albumin LDL Cholesterol Direct HDL Cholesterol Urine Creatinine Hepatitis C Antibody Crossmatch Crossmatch Prewarmed 11/20/17 11/20/17 11/21/17 17:38 23:40 00:13 WBC RBC Hgb 8.4 L Hct 28.0 L MCV MCH MCHC RDW Plt Count Lymph % (Auto) [place] % (Auto) Eos % (Auto) Lymph # [place] # Eos # Seg Neutrophils % Seg Neuts % (Manual) Lymphocytes % (Manual) Monocytes % (Manual) Eosinophils % (Manual) Nucleated RBC % Seg Neutrophils # Seg Neutrophils # Man Lymphocytes # (Manual) Monocytes # (Manual) Eosinophils # (Manual) PT INR POC ABG pH POC ABG pCO2 POC ABG pO2 Sodium Potassium Chloride Carbon Dioxide BUN Creatinine Glucose POC Glucose 115 H 145 H Lactic Acid Calcium Phosphorus Magnesium AST ALT Alkaline Phosphatase Troponin T C-Reactive Protein Total Protein Albumin LDL Cholesterol Direct HDL Cholesterol Urine Creatinine Hepatitis C Antibody Crossmatch Crossmatch Prewarmed 11/21/17 11/21/17 11/21/17 04:30 04:30 04:58 WBC 21.0 H RBC Hgb 9.6 L Hct 32.7 L MCV MCH 25 L MCHC 29 L RDW 19.7 H Plt Count 746 H Lymph % (Auto) [place] % (Auto) Eos % (Auto) Lymph # [place] # Eos # Seg Neutrophils % Seg Neuts % (Manual) Lymphocytes % (Manual) Monocytes % (Manual) Eosinophils % (Manual) Nucleated RBC % Seg Neutrophils # Seg Neutrophils # Man Lymphocytes # (Manual) Monocytes # (Manual) Eosinophils # (Manual) PT INR POC ABG pH POC ABG pCO2 POC ABG pO2 Sodium Potassium Chloride 109.4 H Carbon Dioxide 14 L BUN 59 H Creatinine 3.0 H Glucose 137 H POC Glucose 132 H Lactic Acid Calcium 7.6 L Phosphorus Magnesium AST ALT Alkaline Phosphatase Troponin T C-Reactive Protein Total Protein Albumin LDL Cholesterol Direct HDL Cholesterol Urine Creatinine Hepatitis C Antibody Crossmatch Crossmatch P[place]armed 11/21/17 11/21/17 11/21/17 06:30 13:43 14:17 WBC 38.2 H RBC Hgb 9.0 L Hct 32.3 L MCV MCH 25 L MCHC 28 L RDW 20.0 H Plt Count 766 H Lymph % (Auto) [place] % (Auto) Eos % (Auto) Lymph # [place] # Eos # Seg Neutrophils % Seg Neuts % (Manual) 85.0 H Lymphocytes % (Manual) 1.0 L Monocytes % (Manual) Eosinophils % (Manual) Nucleated RBC % 2.0 H Seg Neutrophils # Seg Neutrophils # Man 32.5 H Lymphocytes # (Manual) 0.4 L Monocytes # (Manual) 2.3 H Eosinophils # (Manual) PT INR POC ABG pH POC ABG pCO2 18.6 L POC ABG pO2 121 H Sodium 146 H Potassium Chloride 110.9 H Carbon Dioxide 11 L BUN 62 H Creatinine 4.0 H Glucose 64 L POC Glucose Lactic Acid Calcium 7.6 L Phosphorus Magnesium AST ALT Alkaline Phosphatase Troponin T C-Reactive Protein Total Protein Albumin LDL Cholesterol Direct HDL Cholesterol Urine Creatinine Hepatitis C Antibody Crossmatch Crossmatch Prewarmed 11/21/17 11/21/17 11/22/17 14:17 19:09 00:05 WBC RBC Hgb Hct MCV MCH MCHC RDW Plt Count Lymph % (Auto) [place] % (Auto) Eos % (Auto) Lymph # [place] # Eos # Seg Neutrophils % Seg Neuts % (Manual) Lymphocytes % (Manual) Monocytes % (Manual) Eosinophils % (Manual) Nucleated RBC % Seg Neutrophils # Seg Neutrophils # Man Lymphocytes # (Manual) Monocytes # (Manual) Eosinophils # (Manual) PT INR POC ABG pH POC ABG pCO2 20.0 L POC ABG pO2 Sodium Potassium Chloride Carbon Dioxide BUN Creatinine Glucose POC Glucose 127 H Lactic Acid 7.70 H* Calcium Phosphorus Magnesium AST ALT Alkaline Phosphatase Troponin T C-Reactive Protein Total Protein Albumin LDL Cholesterol Direct HDL Cholesterol Urine Creatinine Hepatitis C Antibody Crossmatch Crossmatch Prewarmed 11/22/17 11/22/17 11/22/17 03:53 06:00 07:25 WBC RBC Hgb Hct MCV MCH MCHC RDW Plt Count Lymph % (Auto) [place] % (Auto) Eos % (Auto) Lymph # [place] # Eos # Seg Neutrophils % Seg Neuts % (Manual) Lymphocytes % (Manual) Monocytes % (Manual) Eosinophils % (Manual) Nucleated RBC % Seg Neutrophils # Seg Neutrophils # Man Lymphocytes # (Manual) Monocytes # (Manual) Eosinophils # (Manual) PT INR POC ABG pH POC ABG pCO2 22.2 L POC ABG pO2 Sodium 147 H Potassium Chloride 111.9 H Carbon Dioxide 16 L BUN 72 H Creatinine 5.1 H Glucose 181 H POC Glucose 180 H Lactic Acid Calcium 7.1 L Phosphorus Magnesium AST ALT Alkaline Phosphatase Troponin T C-Reactive Protein Total Protein Albumin LDL Cholesterol Direct HDL Cholesterol Urine Creatinine Hepatitis C Antibody Crossmatch Crossmatch Prewarmed 11/22/17 11/22/17 11/22/17 07:25 07:25 12:05 WBC 31.4 H RBC 3.22 L Hgb 8.0 L Hct 26.7 L MCV 83 L MCH 25 L MCHC 30 L RDW 19.4 H Plt Count 602 H Lymph % (Auto) [place] % (Auto) Eos % (Auto) Lymph # [place] # Eos # Seg Neutrophils % Seg Neuts % (Manual) Lymphocytes % (Manual) Monocytes % (Manual) Eosinophils % (Manual) Nucleated RBC % Seg Neutrophils # Seg Neutrophils # Man Lymphocytes # (Manual) Monocytes # (Manual) Eosinophils # (Manual) PT INR POC ABG pH POC ABG pCO2 POC ABG pO2 Sodium Potassium Chloride Carbon Dioxide BUN Creatinine Glucose POC Glucose 182 H Lactic Acid 5.00 H* Calcium Phosphorus Magnesium AST ALT Alkaline Phosphatase Troponin T C-Reactive Protein Total Protein Albumin LDL Cholesterol Direct HDL Cholesterol Urine Creatinine Hepatitis C Antibody Crossmatch Crossmatch P[place]armed 11/22/17 11/23/17 11/23/17 19:45 01:28 04:56 WBC RBC Hgb Hct MCV MCH MCHC RDW Plt Count Lymph % (Auto) [place] % (Auto) Eos % (Auto) Lymph # [place] # Eos # Seg Neutrophils % Seg Neuts % (Manual) Lymphocytes % (Manual) Monocytes % (Manual) Eosinophils % (Manual) Nucleated RBC % Seg Neutrophils # Seg Neutrophils # Man Lymphocytes # (Manual) Monocytes # (Manual) Eosinophils # (Manual) PT INR POC ABG pH 7.505 H POC ABG pCO2 26.3 L POC ABG pO2 Sodium Potassium Chloride Carbon Dioxide BUN Creatinine Glucose POC Glucose 165 H Lactic Acid Calcium Phosphorus Magnesium AST ALT Alkaline Phosphatase Troponin T C-Reactive Protein Total Protein Albumin LDL Cholesterol Direct HDL Cholesterol Urine Creatinine Hepatitis C Antibody Reactive A Crossmatch Crossmatch Prewarmed 11/23/17 11/23/17 11/23/17 07:05 12:32 17:53 WBC RBC Hgb Hct MCV MCH MCHC RDW Plt Count Lymph % (Auto) [place] % (Auto) Eos % (Auto) Lymph # [place] # Eos # Seg Neutrophils % Seg Neuts % (Manual) Lymphocytes % (Manual) Monocytes % (Manual) Eosinophils % (Manual) Nucleated RBC % Seg Neutrophils # Seg Neutrophils # Man Lymphocytes # (Manual) Monocytes # (Manual) Eosinophils # (Manual) PT INR POC ABG pH POC ABG pCO2 POC ABG pO2 Sodium Potassium Chloride Carbon Dioxide 18 L BUN 61 H Creatinine 4.2 H Glucose 153 H POC Glucose 138 H 173 H Lactic Acid Calcium 7.5 L Phosphorus Magnesium AST ALT Alkaline Phosphatase Troponin T C-Reactive Protein Total Protein Albumin LDL Cholesterol Direct HDL Cholesterol Urine Creatinine Hepatitis C Antibody Crossmatch Crossmatch P[place]armed 11/23/17 11/24/17 11/24/17 23:41 05:42 05:42 WBC 21.5 H RBC 2.48 L Hgb 6.2 L Hct 20.3 L D MCV 82 L MCH 25 L MCHC 31 L RDW 18.9 H Plt Count Lymph % (Auto) [place] % (Auto) Eos % (Auto) Lymph # [place] # Eos # Seg Neutrophils % Seg Neuts % (Manual) 94.0 H Lymphocytes % (Manual) 3.0 L Monocytes % (Manual) Eosinophils % (Manual) Nucleated RBC % Seg Neutrophils # Seg Neutrophils # Man 20.2 H Lymphocytes # (Manual) 0.6 L Monocytes # (Manual) Eosinophils # (Manual) PT INR POC ABG pH POC ABG pCO2 POC ABG pO2 Sodium 149 H Potassium 2.8 L* D Chloride 113.9 H Carbon Dioxide 19 L BUN 31 H Creatinine 2.3 H Glucose 103 H POC Glucose 133 H Lactic Acid Calcium 5.3 L* D Phosphorus Magnesium 1.30 L AST ALT Alkaline Phosphatase Troponin T C-Reactive Protein Total Protein Albumin LDL Cholesterol Direct HDL Cholesterol Urine Creatinine Hepatitis C Antibody Crossmatch Crossmatch P[place]armed 11/24/17 11/24/17 11/24/17 05:42 08:27 08:27 WBC RBC Hgb Hct MCV MCH MCHC RDW Plt Count Lymph % (Auto) [place] % (Auto) Eos % (Auto) Lymph # [place] # Eos # Seg Neutrophils % Seg Neuts % (Manual) Lymphocytes % (Manual) Monocytes % (Manual) Eosinophils % (Manual) Nucleated RBC % Seg Neutrophils # Seg Neutrophils # Man Lymphocytes # (Manual) Monocytes # (Manual) Eosinophils # (Manual) PT INR POC ABG pH POC ABG pCO2 POC ABG pO2 Sodium Potassium Chloride Carbon Dioxide BUN Creatinine Glucose POC Glucose Lactic Acid 5.40 H* 5.20 H* Calcium Phosphorus Magnesium AST ALT Alkaline Phosphatase Troponin T C-Reactive Protein Total Protein Albumin LDL Cholesterol Direct HDL Cholesterol Urine Creatinine Hepatitis C Antibody Crossmatch See Detail Crossmatch Prewarmed 11/24/17 11/24/17 11/24/17 12:13 17:22 21:53 WBC 23.0 H RBC 3.32 L Hgb 8.8 L Hct 27.1 L D MCV 82 L MCH 26 L MCHC RDW 17.3 H Plt Count Lymph % (Auto) [place] % (Auto) Eos % (Auto) Lymph # [place] # Eos # Seg Neutrophils % Seg Neuts % (Manual) Lymphocytes % (Manual) Monocytes % (Manual) Eosinophils % (Manual) Nucleated RBC % Seg Neutrophils # Seg Neutrophils # Man Lymphocytes # (Manual) Monocytes # (Manual) Eosinophils # (Manual) PT INR POC ABG pH POC ABG pCO2 POC ABG pO2 Sodium Potassium Chloride Carbon Dioxide BUN Creatinine Glucose POC Glucose 138 H 180 H Lactic Acid Calcium Phosphorus Magnesium AST ALT Alkaline Phosphatase Troponin T C-Reactive Protein Total Protein Albumin LDL Cholesterol Direct HDL Cholesterol Urine Creatinine Hepatitis C Antibody Crossmatch Crossmatch Prewarmed 11/24/17 11/24/17 11/25/17 21:53 23:28 04:19 WBC RBC Hgb Hct MCV MCH MCHC RDW Plt Count Lymph % (Auto) [place] % (Auto) Eos % (Auto) Lymph # [place] # Eos # Seg Neutrophils % Seg Neuts % (Manual) Lymphocytes % (Manual) Monocytes % (Manual) Eosinophils % (Manual) Nucleated RBC % Seg Neutrophils # Seg Neutrophils # Man Lymphocytes # (Manual) Monocytes # (Manual) Eosinophils # (Manual) PT INR POC ABG pH POC ABG pCO2 POC ABG pO2 Sodium Potassium Chloride 96.3 L Carbon Dioxide BUN 28 H 31 H Creatinine 2.3 H 2.6 H Glucose 125 H 101 H POC Glucose 111 H Lactic Acid Calcium 7.5 L D 7.4 L Phosphorus Magnesium AST 170 H ALT 179 H Alkaline Phosphatase 175 H Troponin T C-Reactive Protein Total Protein 5.5 L Albumin 1.8 L LDL Cholesterol Direct HDL Cholesterol Urine Creatinine Hepatitis C Antibody Crossmatch Crossmatch P[facility]armed 11/25/17 11/25/17 11/26/17 04:19 04:19 06:29 WBC 22.5 H RBC 3.48 L Hgb 9.1 L Hct 28.3 L MCV 81 L MCH 26 L MCHC RDW 17.4 H Plt Count Lymph % (Auto) [place] % (Auto) Eos % (Auto) Lymph # [place] # Eos # Seg Neutrophils % Seg Neuts % (Manual) Lymphocytes % (Manual) Monocytes % (Manual) Eosinophils % (Manual) Nucleated RBC % Seg Neutrophils # Seg Neutrophils # Man Lymphocytes # (Manual) Monocytes # (Manual) Eosinophils # (Manual) PT 23.6 H INR 1.96 H POC ABG pH POC ABG pCO2 POC ABG pO2 Sodium Potassium Chloride Carbon Dioxide BUN 31 H Creatinine 2.6 H Glucose 101 H POC Glucose Lactic Acid Calcium 7.5 L Phosphorus Magnesium AST ALT Alkaline Phosphatase Troponin T C-Reactive Protein Total Protein Albumin LDL Cholesterol Direct HDL Cholesterol Urine Creatinine Hepatitis C Antibody Crossmatch Crossmatch Prewarmed 11/26/17 11/27/17 11/27/17 06:34 04:06 04:06 WBC 11.3 H RBC 3.13 L Hgb 8.4 L Hct 25.8 L MCV 82 L MCH 27 L MCHC RDW 17.7 H Plt Count Lymph % (Auto) 7.4 L [place] % (Auto) Eos % (Auto) Lymph # 0.8 L [place] # Eos # Seg Neutrophils % 83.7 H Seg Neuts % (Manual) Lymphocytes % (Manual) Monocytes % (Manual) Eosinophils % (Manual) Nucleated RBC % Seg Neutrophils # 9.5 H Seg Neutrophils # Man Lymphocytes # (Manual) Monocytes # (Manual) Eosinophils # (Manual) PT INR POC ABG pH POC ABG pCO2 POC ABG pO2 Sodium Potassium Chloride 97.9 L Carbon Dioxide BUN 43 H 29 H Creatinine 3.5 H 2.9 H Glucose POC Glucose Lactic Acid Calcium 7.5 L 8.1 L Phosphorus Magnesium AST ALT Alkaline Phosphatase Troponin T C-Reactive Protein Total Protein Albumin LDL Cholesterol Direct HDL Cholesterol Urine Creatinine Hepatitis C Antibody Crossmatch Crossmatch [facility] 11/27/17 11/28/17 11/28/17 18:11 00:16 03:50 WBC RBC Hgb Hct MCV MCH MCHC RDW Plt Count Lymph % (Auto) [place] % (Auto) Eos % (Auto) Lymph # [place] # Eos # Seg Neutrophils % Seg Neuts % (Manual) Lymphocytes % (Manual) Monocytes % (Manual) Eosinophils % (Manual) Nucleated RBC % Seg Neutrophils # Seg Neutrophils # Man Lymphocytes # (Manual) Monocytes # (Manual) Eosinophils # (Manual) PT INR POC ABG pH POC ABG pCO2 POC ABG pO2 Sodium Potassium Chloride Carbon Dioxide BUN 39 H Creatinine 4.1 H Glucose 108 H POC Glucose 110 H 124 H Lactic Acid Calcium 7.9 L Phosphorus Magnesium AST ALT Alkaline Phosphatase Troponin T C-Reactive Protein Total Protein Albumin LDL Cholesterol Direct HDL Cholesterol Urine Creatinine Hepatitis C Antibody Crossmatch Crossmatch [facility] 11/28/17 11/28/17 11/28/17 05:03 11:36 17:42 WBC RBC Hgb Hct MCV MCH MCHC RDW Plt Count Lymph % (Auto) [place] % (Auto) Eos % (Auto) Lymph # [place] # Eos # Seg Neutrophils % Seg Neuts % (Manual) Lymphocytes % (Manual) Monocytes % (Manual) Eosinophils % (Manual) Nucleated RBC % Seg Neutrophils # Seg Neutrophils # Man Lymphocytes # (Manual) Monocytes # (Manual) Eosinophils # (Manual) PT INR POC ABG pH POC ABG pCO2 POC ABG pO2 Sodium Potassium Chloride Carbon Dioxide BUN Creatinine Glucose POC Glucose 134 H 114 H 119 H Lactic Acid Calcium Phosphorus Magnesium AST ALT Alkaline Phosphatase Troponin T C-Reactive Protein Total Protein Albumin LDL Cholesterol Direct HDL Cholesterol Urine Creatinine Hepatitis C Antibody Crossmatch Crossmatch [facility] 11/29/17 11/29/17 11/29/17 00:22 05:25 05:25 WBC 12.3 H RBC 3.34 L Hgb 8.6 L Hct 27.3 L MCV 82 L MCH 26 L MCHC RDW 18.5 H Plt Count Lymph % (Auto) 3.7 L [place] % (Auto) 7.7 H Eos % (Auto) Lymph # 0.5 L [place] # 1.0 H Eos # Seg Neutrophils % 86.5 H Seg Neuts % (Manual) Lymphocytes % (Manual) Monocytes % (Manual) Eosinophils % (Manual) Nucleated RBC % Seg Neutrophils # 10.7 H Seg Neutrophils # Man Lymphocytes # (Manual) Monocytes # (Manual) Eosinophils # (Manual) PT INR POC ABG pH POC ABG pCO2 POC ABG pO2 Sodium Potassium Chloride Carbon Dioxide BUN 29 H Creatinine 3.5 H Glucose 109 H POC Glucose 137 H Lactic Acid Calcium 7.8 L Phosphorus Magnesium AST ALT Alkaline Phosphatase Troponin T C-Reactive Protein Total Protein Albumin LDL Cholesterol Direct HDL Cholesterol Urine Creatinine Hepatitis C Antibody Crossmatch Crossmatch [facility] 11/29/17 11/30/17 11/30/17 05:26 00:26 04:17 WBC RBC Hgb Hct MCV MCH MCHC RDW Plt Count Lymph % (Auto) [place] % (Auto) Eos % (Auto) Lymph # [place] # Eos # Seg Neutrophils % Seg Neuts % (Manual) Lymphocytes % (Manual) Monocytes % (Manual) Eosinophils % (Manual) Nucleated RBC % Seg Neutrophils # Seg Neutrophils # Man Lymphocytes # (Manual) Monocytes # (Manual) Eosinophils # (Manual) PT INR POC ABG pH POC ABG pCO2 POC ABG pO2 Sodium Potassium Chloride Carbon Dioxide BUN 38 H Creatinine 4.3 H Glucose 109 H POC Glucose 129 H 152 H Lactic Acid Calcium 7.8 L Phosphorus Magnesium AST ALT Alkaline Phosphatase Troponin T C-Reactive Protein Total Protein Albumin LDL Cholesterol Direct HDL Cholesterol Urine Creatinine Hepatitis C Antibody Crossmatch Crossmatch [facility] 11/30/17 11/30/17 11/30/17 12:17 16:23 23:35 WBC RBC Hgb Hct MCV MCH MCHC RDW Plt Count Lymph % (Auto) [place] % (Auto) Eos % (Auto) Lymph # [place] # Eos # Seg Neutrophils % Seg Neuts % (Manual) Lymphocytes % (Manual) Monocytes % (Manual) Eosinophils % (Manual) Nucleated RBC % Seg Neutrophils # Seg Neutrophils # Man Lymphocytes # (Manual) Monocytes # (Manual) Eosinophils # (Manual) PT INR POC ABG pH POC ABG pCO2 POC ABG pO2 Sodium Potassium Chloride Carbon Dioxide BUN Creatinine Glucose POC Glucose 170 H 114 H 122 H Lactic Acid Calcium Phosphorus Magnesium AST ALT Alkaline Phosphatase Troponin T C-Reactive Protein Total Protein Albumin LDL Cholesterol Direct HDL Cholesterol Urine Creatinine Hepatitis C Antibody Crossmatch Crossmatch [facility] 12/01/17 12/01/17 12/01/17 04:09 04:09 12:17 WBC 14.1 H RBC 3.32 L Hgb 8.6 L Hct 27.0 L MCV 81 L MCH 26 L MCHC RDW 18.7 H Plt Count Lymph % (Auto) 5.5 L [place] % (Auto) 9.7 H Eos % (Auto) Lymph # 0.8 L [place] # 1.4 H Eos # Seg Neutrophils % 82.9 H Seg Neuts % (Manual) Lymphocytes % (Manual) Monocytes % (Manual) Eosinophils % (Manual) Nucleated RBC % Seg Neutrophils # 11.7 H Seg Neutrophils # Man Lymphocytes # (Manual) Monocytes # (Manual) Eosinophils # (Manual) PT INR POC ABG pH POC ABG pCO2 POC ABG pO2 Sodium Potassium 3.4 L Chloride Carbon Dioxide BUN 21 H Creatinine 3.0 H Glucose 108 H POC Glucose 126 H Lactic Acid Calcium 8.0 L Phosphorus Magnesium AST ALT Alkaline Phosphatase Troponin T C-Reactive Protein Total Protein Albumin LDL Cholesterol Direct HDL Cholesterol Urine Creatinine Hepatitis C Antibody Crossmatch Crossmatch [facility] 12/02/17 12/03/17 12/03/17 23:46 02:52 05:54 WBC 17.2 H RBC 3.21 L Hgb 8.5 L Hct 25.8 L MCV 80 L MCH 26 L MCHC RDW 18.4 H Plt Count 128 L Lymph % (Auto) [place] % (Auto) Eos % (Auto) Lymph # [place] # Eos # Seg Neutrophils % Seg Neuts % (Manual) Lymphocytes % (Manual) Monocytes % (Manual) Eosinophils % (Manual) Nucleated RBC % Seg Neutrophils # Seg Neutrophils # Man Lymphocytes # (Manual) Monocytes # (Manual) Eosinophils # (Manual) PT INR POC ABG pH POC ABG pCO2 POC ABG pO2 Sodium Potassium Chloride Carbon Dioxide BUN Creatinine Glucose POC Glucose 125 H 107 H Lactic Acid Calcium Phosphorus Magnesium AST ALT Alkaline Phosphatase Troponin T C-Reactive Protein Total Protein Albumin LDL Cholesterol Direct HDL Cholesterol Urine Creatinine Hepatitis C Antibody Crossmatch Crossmatch [facility]armed 12/03/17 12/03/17 12/04/17 12:05 Unknown 12:26 WBC RBC Hgb Hct MCV MCH MCHC RDW Plt Count Lymph % (Auto) [place] % (Auto) Eos % (Auto) Lymph # [place] # Eos # Seg Neutrophils % Seg Neuts % (Manual) Lymphocytes % (Manual) Monocytes % (Manual) Eosinophils % (Manual) Nucleated RBC % Seg Neutrophils # Seg Neutrophils # Man Lymphocytes # (Manual) Monocytes # (Manual) Eosinophils # (Manual) PT INR POC ABG pH POC ABG pCO2 POC ABG pO2 Sodium Potassium Chloride Carbon Dioxide BUN 21 H Creatinine 2.8 H Glucose 113 H POC Glucose 106 H 119 H Lactic Acid Calcium Phosphorus Magnesium AST ALT Alkaline Phosphatase Troponin T C-Reactive Protein Total Protein Albumin LDL Cholesterol Direct HDL Cholesterol Urine Creatinine Hepatitis C Antibody Crossmatch Crossmatch [facility]armed 12/04/17 12/05/17 12/05/17 17:57 00:52 04:05 WBC RBC 2.96 L Hgb 7.7 L Hct 24.2 L MCV 82 L MCH 26 L MCHC RDW 18.8 H Plt Count 105 L Lymph % (Auto) 10.6 L [place] % (Auto) 12.1 H Eos % (Auto) 5.2 H Lymph # 1.1 L [place] # 1.3 H Eos # 0.5 H Seg Neutrophils % 71.3 H Seg Neuts % (Manual) Lymphocytes % (Manual) Monocytes % (Manual) Eosinophils % (Manual) Nucleated RBC % Seg Neutrophils # Seg Neutrophils # Man Lymphocytes # (Manual) Monocytes # (Manual) Eosinophils # (Manual) PT INR POC ABG pH POC ABG pCO2 POC ABG pO2 Sodium Potassium Chloride Carbon Dioxide BUN Creatinine Glucose POC Glucose 140 H 117 H Lactic Acid Calcium Phosphorus Magnesium AST ALT Alkaline Phosphatase Troponin T C-Reactive Protein Total Protein Albumin LDL Cholesterol Direct HDL Cholesterol Urine Creatinine Hepatitis C Antibody Crossmatch Crossmatch [facility]armed 12/05/17 12/05/17 12/06/17 04:05 22:50 08:18 WBC RBC 2.80 L Hgb 7.4 L Hct 23.0 L MCV 82 L MCH 27 L MCHC RDW 19.5 H Plt Count 125 L Lymph % (Auto) [place] % (Auto) Eos % (Auto) Lymph # [place] # Eos # Seg Neutrophils % Seg Neuts % (Manual) Lymphocytes % (Manual) Monocytes % (Manual) Eosinophils % (Manual) Nucleated RBC % Seg Neutrophils # Seg Neutrophils # Man Lymphocytes # (Manual) Monocytes # (Manual) Eosinophils # (Manual) PT INR POC ABG pH POC ABG pCO2 POC ABG pO2 Sodium Potassium Chloride 107.4 H Carbon Dioxide BUN Creatinine 2.5 H Glucose POC Glucose 112 H Lactic Acid Calcium 8.3 L Phosphorus Magnesium AST ALT Alkaline Phosphatase Troponin T C-Reactive Protein Total Protein Albumin LDL Cholesterol Direct HDL Cholesterol Urine Creatinine Hepatitis C Antibody Crossmatch Crossmatch [facility] 12/06/17 12/06/17 12/06/17 08:18 12:01 23:58 WBC RBC Hgb Hct MCV MCH MCHC RDW Plt Count Lymph % (Auto) [place] % (Auto) Eos % (Auto) Lymph # [place] # Eos # Seg Neutrophils % Seg Neuts % (Manual) Lymphocytes % (Manual) Monocytes % (Manual) Eosinophils % (Manual) Nucleated RBC % Seg Neutrophils # Seg Neutrophils # Man Lymphocytes # (Manual) Monocytes # (Manual) Eosinophils # (Manual) PT INR POC ABG pH POC ABG pCO2 POC ABG pO2 Sodium Potassium Chloride 108.4 H Carbon Dioxide BUN 28 H Creatinine 3.7 H Glucose 103 H POC Glucose 106 H 108 H Lactic Acid Calcium 8.0 L Phosphorus Magnesium AST ALT Alkaline Phosphatase Troponin T C-Reactive Protein Total Protein Albumin LDL Cholesterol Direct HDL Cholesterol Urine Creatinine Hepatitis C Antibody Crossmatch Crossmatch [facility] 12/07/17 12/07/17 12/07/17 05:47 05:47 18:03 WBC RBC 2.79 L Hgb 7.3 L Hct 22.8 L MCV 82 L MCH 26 L MCHC RDW 19.1 H Plt Count 101 L Lymph % (Auto) [place] % (Auto) Eos % (Auto) Lymph # [place] # Eos # Seg Neutrophils % Seg Neuts % (Manual) 72.0 H Lymphocytes % (Manual) 13.0 L Monocytes % (Manual) Eosinophils % (Manual) 9.0 H Nucleated RBC % Seg Neutrophils # Seg Neutrophils # Man Lymphocytes # (Manual) 1.1 L Monocytes # (Manual) Eosinophils # (Manual) 0.8 H PT INR POC ABG pH POC ABG pCO2 POC ABG pO2 Sodium 146 H Potassium Chloride 109.8 H Carbon Dioxide BUN 36 H Creatinine 4.0 H Glucose POC Glucose 143 H Lactic Acid Calcium 8.0 L Phosphorus Magnesium AST ALT Alkaline Phosphatase Troponin T C-Reactive Protein Total Protein Albumin LDL Cholesterol Direct HDL Cholesterol Urine Creatinine Hepatitis C Antibody Crossmatch Crossmatch [facility] 12/07/17 12/08/17 12/08/17 23:33 05:10 05:10 WBC RBC 2.91 L Hgb 7.5 L Hct 24.4 L MCV MCH 26 L MCHC 31 L RDW 19.7 H Plt Count 109 L Lymph % (Auto) [place] % (Auto) Eos % (Auto) Lymph # [place] # Eos # Seg Neutrophils % Seg Neuts % (Manual) Lymphocytes % (Manual) 11.0 L Monocytes % (Manual) Eosinophils % (Manual) 12.0 H Nucleated RBC % Seg Neutrophils # Seg Neutrophils # Man Lymphocytes # (Manual) 0.7 L Monocytes # (Manual) Eosinophils # (Manual) 0.7 H PT INR POC ABG pH POC ABG pCO2 POC ABG pO2 Sodium 147 H Potassium Chloride 110.4 H Carbon Dioxide BUN Creatinine 2.8 H Glucose POC Glucose 107 H Lactic Acid Calcium 7.8 L Phosphorus Magnesium AST ALT Alkaline Phosphatase Troponin T C-Reactive Protein Total Protein Albumin LDL Cholesterol Direct HDL Cholesterol Urine Creatinine Hepatitis C Antibody Crossmatch Crossmatch [facility] 12/09/17 12/09/17 12/09/17 04:18 04:18 12:16 WBC RBC Hgb 7.2 L Hct 23.2 L MCV MCH MCHC RDW Plt Count Lymph % (Auto) [place] % (Auto) Eos % (Auto) Lymph # [place] # Eos # Seg Neutrophils % Seg Neuts % (Manual) Lymphocytes % (Manual) Monocytes % (Manual) Eosinophils % (Manual) Nucleated RBC % Seg Neutrophils # Seg Neutrophils # Man Lymphocytes # (Manual) Monocytes # (Manual) Eosinophils # (Manual) PT INR POC ABG pH POC ABG pCO2 POC ABG pO2 Sodium 150 H Potassium Chloride 114.5 H Carbon Dioxide BUN 25 H Creatinine 3.3 H Glucose POC Glucose 142 H Lactic Acid Calcium 7.7 L Phosphorus Magnesium AST ALT Alkaline Phosphatase Troponin T C-Reactive Protein Total Protein Albumin LDL Cholesterol Direct HDL Cholesterol Urine Creatinine Hepatitis C Antibody Crossmatch Crossmatch [facility] 12/10/17 12/10/17 12/11/17 05:14 05:14 12:05 WBC RBC 2.81 L Hgb 7.4 L Hct 23.9 L MCV MCH 26 L MCHC 31 L RDW 19.1 H Plt Count 128 L Lymph % (Auto) [place] % (Auto) Eos % (Auto) Lymph # [place] # Eos # Seg Neutrophils % Seg Neuts % (Manual) 78.0 H Lymphocytes % (Manual) 8.0 L Monocytes % (Manual) Eosinophils % (Manual) 5.0 H Nucleated RBC % Seg Neutrophils # Seg Neutrophils # Man Lymphocytes # (Manual) 0.6 L Monocytes # (Manual) Eosinophils # (Manual) PT INR POC ABG pH POC ABG pCO2 POC ABG pO2 Sodium Potassium Chloride Carbon Dioxide BUN Creatinine 2.2 H Glucose POC Glucose 127 H Lactic Acid Calcium 7.8 L Phosphorus Magnesium AST ALT Alkaline Phosphatase Troponin T C-Reactive Protein Total Protein Albumin LDL Cholesterol Direct HDL Cholesterol Urine Creatinine Hepatitis C Antibody Crossmatch Crossmatch [facility] 12/11/17 12/11/17 12/11/17 15:26 18:36 23:40 WBC RBC Hgb Hct MCV MCH MCHC RDW Plt Count Lymph % (Auto) [place] % (Auto) Eos % (Auto) Lymph # [place] # Eos # Seg Neutrophils % Seg Neuts % (Manual) Lymphocytes % (Manual) Monocytes % (Manual) Eosinophils % (Manual) Nucleated RBC % Seg Neutrophils # Seg Neutrophils # Man Lymphocytes # (Manual) Monocytes # (Manual) Eosinophils # (Manual) PT INR POC ABG pH POC ABG pCO2 POC ABG pO2 Sodium Potassium 3.3 L Chloride Carbon Dioxide BUN Creatinine 1.6 H Glucose POC Glucose 106 H 110 H Lactic Acid Calcium 7.6 L Phosphorus Magnesium AST ALT Alkaline Phosphatase Troponin T C-Reactive Protein Total Protein Albumin LDL Cholesterol Direct HDL Cholesterol Urine Creatinine Hepatitis C Antibody Crossmatch Crossmatch [facility] 12/12/17 12/12/17 12/12/17 05:10 05:41 05:41 WBC RBC 3.17 L Hgb 8.1 L Hct 25.7 L MCV 81 L MCH 25 L MCHC 31 L RDW 19.2 H Plt Count Lymph % (Auto) [place] % (Auto) Eos % (Auto) Lymph # [place] # Eos # Seg Neutrophils % Seg Neuts % (Manual) 74.0 H Lymphocytes % (Manual) 6.0 L Monocytes % (Manual) Eosinophils % (Manual) 9.0 H Nucleated RBC % Seg Neutrophils # Seg Neutrophils # Man Lymphocytes # (Manual) 0.6 L Monocytes # (Manual) Eosinophils # (Manual) 0.9 H PT INR POC ABG pH POC ABG pCO2 POC ABG pO2 Sodium Potassium 3.5 L Chloride Carbon Dioxide BUN Creatinine 2.3 H Glucose 113 H POC Glucose 112 H Lactic Acid Calcium 7.5 L Phosphorus Magnesium AST ALT Alkaline Phosphatase Troponin T C-Reactive Protein Total Protein Albumin LDL Cholesterol Direct HDL Cholesterol Urine Creatinine Hepatitis C Antibody Crossmatch Crossmatch [facility] 12/13/17 12/13/17 12/13/17 06:14 12:00 17:37 WBC RBC Hgb Hct MCV MCH MCHC RDW Plt Count Lymph % (Auto) [place] % (Auto) Eos % (Auto) Lymph # [place] # Eos # Seg Neutrophils % Seg Neuts % (Manual) Lymphocytes % (Manual) Monocytes % (Manual) Eosinophils % (Manual) Nucleated RBC % Seg Neutrophils # Seg Neutrophils # Man Lymphocytes # (Manual) Monocytes # (Manual) Eosinophils # (Manual) PT INR POC ABG pH POC ABG pCO2 POC ABG pO2 Sodium Potassium Chloride Carbon Dioxide BUN Creatinine Glucose POC Glucose 130 H 133 H 136 H Lactic Acid Calcium Phosphorus Magnesium AST ALT Alkaline Phosphatase Troponin T C-Reactive Protein Total Protein Albumin LDL Cholesterol Direct HDL Cholesterol Urine Creatinine Hepatitis C Antibody Crossmatch Crossmatch [facility]armed 12/13/17 12/14/17 12/14/17 23:39 05:11 05:11 WBC RBC Hgb Hct MCV MCH MCHC RDW Plt Count Lymph % (Auto) [place] % (Auto) Eos % (Auto) Lymph # [place] # Eos # Seg Neutrophils % Seg Neuts % (Manual) Lymphocytes % (Manual) Monocytes % (Manual) Eosinophils % (Manual) Nucleated RBC % Seg Neutrophils # Seg Neutrophils # Man Lymphocytes # (Manual) Monocytes # (Manual) Eosinophils # (Manual) PT 15.4 H INR 1.17 H POC ABG pH POC ABG pCO2 POC ABG pO2 Sodium Potassium Chloride Carbon Dioxide 21 L BUN 26 H Creatinine 2.9 H Glucose POC Glucose 108 H Lactic Acid Calcium 7.2 L Phosphorus Magnesium AST ALT Alkaline Phosphatase Troponin T C-Reactive Protein Total Protein Albumin LDL Cholesterol Direct HDL Cholesterol Urine Creatinine Hepatitis C Antibody Crossmatch Crossmatch [facility] 12/14/17 12/14/17 12/14/17 12:00 16:01 18:24 WBC 12.9 H RBC 3.25 L Hgb 8.2 L Hct 26.2 L MCV 81 L MCH 25 L MCHC 31 L RDW 19.2 H Plt Count Lymph % (Auto) [place] % (Auto) Eos % (Auto) Lymph # [place] # Eos # Seg Neutrophils % Seg Neuts % (Manual) Lymphocytes % (Manual) Monocytes % (Manual) Eosinophils % (Manual) Nucleated RBC % Seg Neutrophils # Seg Neutrophils # Man Lymphocytes # (Manual) Monocytes # (Manual) Eosinophils # (Manual) PT INR POC ABG pH POC ABG pCO2 POC ABG pO2 Sodium Potassium Chloride Carbon Dioxide BUN Creatinine Glucose POC Glucose 138 H 120 H Lactic Acid Calcium Phosphorus Magnesium AST ALT Alkaline Phosphatase Troponin T C-Reactive Protein Total Protein Albumin LDL Cholesterol Direct HDL Cholesterol Urine Creatinine Hepatitis C Antibody Crossmatch Crossmatch [facility]armed 12/14/17 12/14/17 12/15/17 23:29 Unknown 05:57 WBC 12.5 H RBC 2.48 L Hgb 6.0 L Hct 24.4 L MCV 79 L MCH 24 L MCHC 30 L RDW 18.5 H Plt Count 131 L Lymph % (Auto) 7.0 L [place] % (Auto) 8.9 H Eos % (Auto) 8.3 H Lymph # 0.9 L [place] # 1.1 H Eos # 1.0 H Seg Neutrophils % 75.2 H Seg Neuts % (Manual) Lymphocytes % (Manual) Monocytes % (Manual) Eosinophils % (Manual) Nucleated RBC % Seg Neutrophils # 9.4 H Seg Neutrophils # Man Lymphocytes # (Manual) Monocytes # (Manual) Eosinophils # (Manual) PT INR POC ABG pH POC ABG pCO2 POC ABG pO2 Sodium Potassium Chloride Carbon Dioxide BUN Creatinine Glucose POC Glucose 110 H 113 H Lactic Acid Calcium Phosphorus Magnesium AST ALT Alkaline Phosphatase Troponin T C-Reactive Protein Total Protein Albumin LDL Cholesterol Direct HDL Cholesterol Urine Creatinine Hepatitis C Antibody Crossmatch Crossmatch [facility]armed 12/15/17 12/15/17 12/15/17 11:50 13:37 17:58 WBC RBC Hgb 7.3 L Hct 23.3 L MCV MCH MCHC RDW Plt Count Lymph % (Auto) [place] % (Auto) Eos % (Auto) Lymph # [place] # Eos # Seg Neutrophils % Seg Neuts % (Manual) Lymphocytes % (Manual) Monocytes % (Manual) Eosinophils % (Manual) Nucleated RBC % Seg Neutrophils # Seg Neutrophils # Man Lymphocytes # (Manual) Monocytes # (Manual) Eosinophils # (Manual) PT INR POC ABG pH POC ABG pCO2 POC ABG pO2 Sodium Potassium Chloride Carbon Dioxide BUN Creatinine Glucose POC Glucose 106 H 110 H Lactic Acid Calcium Phosphorus Magnesium AST ALT Alkaline Phosphatase Troponin T C-Reactive Protein Total Protein Albumin LDL Cholesterol Direct HDL Cholesterol Urine Creatinine Hepatitis C Antibody Crossmatch Crossmatch P[facility]armed 12/15/17 12/16/17 12/16/17 23:30 04:55 05:14 WBC 13.2 H RBC 2.79 L Hgb 6.9 L Hct 22.2 L MCV 80 L MCH 25 L MCHC 31 L RDW 18.8 H Plt Count Lymph % (Auto) 7.3 L [place] % (Auto) 11.0 H Eos % (Auto) 8.2 H Lymph # 1.0 L [place] # 1.4 H Eos # 1.1 H Seg Neutrophils % 72.9 H Seg Neuts % (Manual) Lymphocytes % (Manual) Monocytes % (Manual) Eosinophils % (Manual) Nucleated RBC % Seg Neutrophils # 9.6 H Seg Neutrophils # Man Lymphocytes # (Manual) Monocytes # (Manual) Eosinophils # (Manual) PT INR POC ABG pH POC ABG pCO2 POC ABG pO2 Sodium 131 L D Potassium 2.8 L* D Chloride 93.2 L Carbon Dioxide BUN 24 H Creatinine 2.0 H Glucose POC Glucose 111 H Lactic Acid Calcium 7.7 L Phosphorus Magnesium AST ALT Alkaline Phosphatase Troponin T C-Reactive Protein Total Protein Albumin LDL Cholesterol Direct HDL Cholesterol Urine Creatinine Hepatitis C Antibody Crossmatch Crossmatch [facility]armed 12/16/17 12/16/17 12/16/17 13:01 17:32 23:39 WBC RBC Hgb Hct MCV MCH MCHC RDW Plt Count Lymph % (Auto) [place] % (Auto) Eos % (Auto) Lymph # [place] # Eos # Seg Neutrophils % Seg Neuts % (Manual) Lymphocytes % (Manual) Monocytes % (Manual) Eosinophils % (Manual) Nucleated RBC % Seg Neutrophils # Seg Neutrophils # Man Lymphocytes # (Manual) Monocytes # (Manual) Eosinophils # (Manual) PT INR POC ABG pH POC ABG pCO2 POC ABG pO2 Sodium Potassium Chloride Carbon Dioxide BUN Creatinine Glucose POC Glucose 121 H 107 H Lactic Acid Calcium Phosphorus Magnesium AST ALT Alkaline Phosphatase Troponin T C-Reactive Protein Total Protein Albumin LDL Cholesterol Direct HDL Cholesterol Urine Creatinine Hepatitis C Antibody Crossmatch Crossmatch P[facility]armed See Detail 12/17/17 12/17/17 12/17/17 05:08 05:08 12:03 WBC 12.9 H RBC 2.88 L Hgb 7.2 L Hct 22.6 L MCV 78 L MCH 25 L MCHC RDW 18.3 H Plt Count Lymph % (Auto) 8.0 L [place] % (Auto) 8.6 H Eos % (Auto) Lymph # 1.0 L [place] # 1.1 H Eos # Seg Neutrophils % 79.3 H Seg Neuts % (Manual) Lymphocytes % (Manual) Monocytes % (Manual) Eosinophils % (Manual) Nucleated RBC % Seg Neutrophils # 10.2 H Seg Neutrophils # Man Lymphocytes # (Manual) Monocytes # (Manual) Eosinophils # (Manual) PT INR POC ABG pH POC ABG pCO2 POC ABG pO2 Sodium Potassium 3.4 L D Chloride Carbon Dioxide BUN Creatinine Glucose 104 H POC Glucose 109 H Lactic Acid Calcium 7.6 L Phosphorus Magnesium 1.30 L AST ALT Alkaline Phosphatase 177 H Troponin T C-Reactive Protein Total Protein Albumin 2.0 L LDL Cholesterol Direct HDL Cholesterol Urine Creatinine Hepatitis C Antibody Crossmatch Crossmatch P[facility]armed 12/17/17 12/18/17 12/18/17 23:40 00:50 00:50 WBC 22.6 H RBC 2.76 L Hgb 6.7 L Hct 21.6 L MCV 78 L MCH 24 L MCHC 31 L RDW 18.4 H Plt Count Lymph % (Auto) [place] % (Auto) Eos % (Auto) Lymph # [place] # Eos # Seg Neutrophils % Seg Neuts % (Manual) Lymphocytes % (Manual) Monocytes % (Manual) Eosinophils % (Manual) Nucleated RBC % Seg Neutrophils # Seg Neutrophils # Man Lymphocytes # (Manual) Monocytes # (Manual) Eosinophils # (Manual) PT INR POC ABG pH POC ABG pCO2 POC ABG pO2 Sodium Potassium Chloride Carbon Dioxide BUN 22 H Creatinine 1.6 H Glucose 113 H POC Glucose 120 H Lactic Acid Calcium 7.8 L Phosphorus Magnesium 1.50 L AST ALT Alkaline Phosphatase Troponin T C-Reactive Protein Total Protein Albumin LDL Cholesterol Direct HDL Cholesterol Urine Creatinine Hepatitis C Antibody Crossmatch Crossmatch P[facility]armed 12/18/17 12/18/17 12/18/17 05:34 12:00 18:07 WBC RBC Hgb Hct MCV MCH MCHC RDW Plt Count Lymph % (Auto) [place] % (Auto) Eos % (Auto) Lymph # [place] # Eos # Seg Neutrophils % Seg Neuts % (Manual) Lymphocytes % (Manual) Monocytes % (Manual) Eosinophils % (Manual) Nucleated RBC % Seg Neutrophils # Seg Neutrophils # Man Lymphocytes # (Manual) Monocytes # (Manual) Eosinophils # (Manual) PT INR POC ABG pH POC ABG pCO2 POC ABG pO2 Sodium Potassium Chloride Carbon Dioxide BUN Creatinine Glucose POC Glucose 132 H 136 H 122 H Lactic Acid Calcium Phosphorus Magnesium AST ALT Alkaline Phosphatase Troponin T C-Reactive Protein Total Protein Albumin LDL Cholesterol Direct HDL Cholesterol Urine Creatinine Hepatitis C Antibody Crossmatch Crossmatch P[facility]armed 12/19/17 12/19/17 12/19/17 00:24 00:24 05:17 WBC 15.4 H RBC 2.41 L Hgb 6.1 L Hct 19.0 L* MCV 79 L MCH 25 L MCHC RDW 18.5 H Plt Count Lymph % (Auto) [place] % (Auto) Eos % (Auto) Lymph # [place] # Eos # Seg Neutrophils % Seg Neuts % (Manual) Lymphocytes % (Manual) Monocytes % (Manual) Eosinophils % (Manual) Nucleated RBC % Seg Neutrophils # Seg Neutrophils # Man Lymphocytes # (Manual) Monocytes # (Manual) Eosinophils # (Manual) PT INR POC ABG pH POC ABG pCO2 POC ABG pO2 Sodium Potassium 3.2 L Chloride Carbon Dioxide BUN Creatinine Glucose 117 H POC Glucose 132 H Lactic Acid Calcium 8.2 L Phosphorus Magnesium 1.50 L AST ALT Alkaline Phosphatase Troponin T C-Reactive Protein Total Protein Albumin LDL Cholesterol Direct HDL Cholesterol Urine Creatinine Hepatitis C Antibody Crossmatch Crossmatch P[facility]armed 12/19/17 12/19/17 12/19/17 09:00 09:00 18:01 WBC 12.4 H RBC 2.86 L Hgb 7.2 L Hct 22.6 L MCV 79 L MCH 25 L MCHC RDW 17.2 H Plt Count Lymph % (Auto) 6.8 L [place] % (Auto) 12.6 H Eos % (Auto) Lymph # 0.8 L [place] # 1.6 H Eos # Seg Neutrophils % 80.1 H Seg Neuts % (Manual) Lymphocytes % (Manual) Monocytes % (Manual) Eosinophils % (Manual) Nucleated RBC % Seg Neutrophils # 10.0 H Seg Neutrophils # Man Lymphocytes # (Manual) Monocytes # (Manual) Eosinophils # (Manual) PT INR POC ABG pH POC ABG pCO2 POC ABG pO2 Sodium Potassium 3.1 L Chloride Carbon Dioxide BUN 22 H Creatinine Glucose 113 H POC Glucose 117 H Lactic Acid Calcium 8.3 L Phosphorus Magnesium AST 54 H ALT Alkaline Phosphatase 204 H Troponin T C-Reactive Protein Total Protein 5.8 L Albumin 2.0 L LDL Cholesterol Direct HDL Cholesterol Urine Creatinine Hepatitis C Antibody Crossmatch Crossmatch Prewarmed 12/19/17 12/20/17 12/20/17 23:49 05:53 19:00 WBC RBC 3.03 L Hgb 7.7 L Hct 23.7 L MCV 78 L MCH 25 L MCHC RDW 17.2 H Plt Count Lymph % (Auto) [place] % (Auto) Eos % (Auto) Lymph # [place] # Eos # Seg Neutrophils % Seg Neuts % (Manual) 74.0 H Lymphocytes % (Manual) 6.0 L Monocytes % (Manual) 17.0 H Eosinophils % (Manual) Nucleated RBC % Seg Neutrophils # Seg Neutrophils # Man Lymphocytes # (Manual) 0.5 L Monocytes # (Manual) 1.5 H Eosinophils # (Manual) PT INR POC ABG pH POC ABG pCO2 POC ABG pO2 Sodium Potassium Chloride Carbon Dioxide BUN Creatinine Glucose POC Glucose 125 H 124 H Lactic Acid Calcium Phosphorus Magnesium AST ALT Alkaline Phosphatase Troponin T C-Reactive Protein Total Protein Albumin LDL Cholesterol Direct HDL Cholesterol Urine Creatinine Hepatitis C Antibody Crossmatch Crossmatch [place]armed 12/20/17 12/21/17 12/22/17 19:00 23:54 05:07 WBC RBC Hgb Hct MCV MCH MCHC RDW Plt Count Lymph % (Auto) [place] % (Auto) Eos % (Auto) Lymph # [place] # Eos # Seg Neutrophils % Seg Neuts % (Manual) Lymphocytes % (Manual) Monocytes % (Manual) Eosinophils % (Manual) Nucleated RBC % Seg Neutrophils # Seg Neutrophils # Man Lymphocytes # (Manual) Monocytes # (Manual) Eosinophils # (Manual) PT INR POC ABG pH POC ABG pCO2 POC ABG pO2 Sodium Potassium 3.3 L 2.9 L* Chloride Carbon Dioxide BUN 37 H 43 H Creatinine Glucose 114 H POC Glucose 109 H Lactic Acid Calcium 8.3 L 7.8 L Phosphorus 1.60 L Magnesium 1.50 L AST ALT Alkaline Phosphatase Troponin T C-Reactive Protein Total Protein Albumin LDL Cholesterol Direct HDL Cholesterol Urine Creatinine Hepatitis C Antibody Crossmatch Crossmatch [place]armed 12/22/17 12/22/17 12/22/17 05:07 05:07 06:02 WBC 4.1 L RBC 3.09 L Hgb 7.7 L Hct 24.3 L MCV 79 L MCH 25 L MCHC RDW 17.8 H Plt Count Lymph % (Auto) [place] % (Auto) Eos % (Auto) Lymph # [place] # Eos # Seg Neutrophils % Seg Neuts % (Manual) Lymphocytes % (Manual) Monocytes % (Manual) Eosinophils % (Manual) Nucleated RBC % Seg Neutrophils # Seg Neutrophils # Man Lymphocytes # (Manual) Monocytes # (Manual) Eosinophils # (Manual) PT INR POC ABG pH POC ABG pCO2 POC ABG pO2 Sodium Potassium Chloride Carbon Dioxide BUN Creatinine Glucose POC Glucose 107 H Lactic Acid Calcium Phosphorus Magnesium 1.60 L AST ALT Alkaline Phosphatase Troponin T C-Reactive Protein Total Protein Albumin LDL Cholesterol Direct HDL Cholesterol Urine Creatinine Hepatitis C Antibody Crossmatch Crossmatch P[place]armed 12/22/17 12/22/17 12/22/17 10:50 12:02 17:32 WBC RBC Hgb Hct MCV MCH MCHC RDW Plt Count Lymph % (Auto) [place] % (Auto) Eos % (Auto) Lymph # [place] # Eos # Seg Neutrophils % Seg Neuts % (Manual) Lymphocytes % (Manual) Monocytes % (Manual) Eosinophils % (Manual) Nucleated RBC % Seg Neutrophils # Seg Neutrophils # Man Lymphocytes # (Manual) Monocytes # (Manual) Eosinophils # (Manual) PT INR POC ABG pH POC ABG pCO2 POC ABG pO2 Sodium Potassium Chloride Carbon Dioxide BUN Creatinine Glucose POC Glucose 129 H 111 H Lactic Acid Calcium Phosphorus Magnesium AST ALT Alkaline Phosphatase Troponin T C-Reactive Protein Total Protein Albumin LDL Cholesterol Direct HDL Cholesterol Urine Creatinine 55.8 H Hepatitis C Antibody Crossmatch Crossmatch Prewarmed 12/22/17 12/22/17 12/23/17 19:03 23:57 05:55 WBC RBC Hgb Hct MCV MCH MCHC RDW Plt Count Lymph % (Auto) [place] % (Auto) Eos % (Auto) Lymph # [place] # Eos # Seg Neutrophils % Seg Neuts % (Manual) Lymphocytes % (Manual) Monocytes % (Manual) Eosinophils % (Manual) Nucleated RBC % Seg Neutrophils # Seg Neutrophils # Man Lymphocytes # (Manual) Monocytes # (Manual) Eosinophils # (Manual) PT INR POC ABG pH POC ABG pCO2 POC ABG pO2 Sodium Potassium 3.4 L 2.9 L* Chloride Carbon Dioxide BUN 40 H Creatinine Glucose 107 H POC Glucose 128 H Lactic Acid Calcium 7.9 L Phosphorus Magnesium AST ALT Alkaline Phosphatase Troponin T C-Reactive Protein Total Protein Albumin LDL Cholesterol Direct HDL Cholesterol Urine Creatinine Hepatitis C Antibody Crossmatch Crossmatch P[place]armed 12/23/17 12/23/17 12/23/17 05:55 05:55 11:59 WBC 3.8 L RBC 3.10 L Hgb 7.7 L Hct 25.5 L MCV 82 L MCH 25 L MCHC 30 L RDW 17.9 H Plt Count Lymph % (Auto) [place] % (Auto) Eos % (Auto) Lymph # [place] # Eos # Seg Neutrophils % Seg Neuts % (Manual) Lymphocytes % (Manual) Monocytes % (Manual) Eosinophils % (Manual) Nucleated RBC % Seg Neutrophils # Seg Neutrophils # Man Lymphocytes # (Manual) Monocytes # (Manual) Eosinophils # (Manual) PT INR POC ABG pH POC ABG pCO2 POC ABG pO2 Sodium Potassium Chloride Carbon Dioxide BUN Creatinine Glucose POC Glucose 115 H Lactic Acid Calcium Phosphorus Magnesium 1.60 L AST ALT Alkaline Phosphatase Troponin T C-Reactive Protein Total Protein Albumin LDL Cholesterol Direct HDL Cholesterol Urine Creatinine Hepatitis C Antibody Crossmatch Crossmatch P[place]armed 12/23/17 12/24/17 12/24/17 22:48 00:29 03:17 WBC RBC Hgb Hct MCV MCH MCHC RDW Plt Count Lymph % (Auto) [place] % (Auto) Eos % (Auto) Lymph # [place] # Eos # Seg Neutrophils % Seg Neuts % (Manual) Lymphocytes % (Manual) Monocytes % (Manual) Eosinophils % (Manual) Nucleated RBC % Seg Neutrophils # Seg Neutrophils # Man Lymphocytes # (Manual) Monocytes # (Manual) Eosinophils # (Manual) PT INR POC ABG pH POC ABG pCO2 POC ABG pO2 Sodium 146 H Potassium 2.9 L* 3.4 L Chloride Carbon Dioxide BUN 36 H Creatinine 0.7 L Glucose POC Glucose 111 H Lactic Acid Calcium 7.5 L Phosphorus Magnesium 1.60 L AST 76 H ALT 59 H Alkaline Phosphatase 294 H Troponin T C-Reactive Protein Total Protein 5.8 L Albumin 2.2 L LDL Cholesterol Direct HDL Cholesterol Urine Creatinine Hepatitis C Antibody Crossmatch Crossmatch P[place]armed 12/24/17 12/24/17 12/24/17 03:17 05:14 17:05 WBC RBC 3.03 L Hgb 7.6 L Hct 23.7 L MCV 78 L MCH 25 L MCHC RDW 17.8 H Plt Count Lymph % (Auto) [place] % (Auto) Eos % (Auto) Lymph # [place] # Eos # Seg Neutrophils % Seg Neuts % (Manual) Lymphocytes % (Manual) Monocytes % (Manual) Eosinophils % (Manual) Nucleated RBC % Seg Neutrophils # Seg Neutrophils # Man Lymphocytes # (Manual) Monocytes # (Manual) Eosinophils # (Manual) PT INR POC ABG pH POC ABG pCO2 POC ABG pO2 Sodium Potassium Chloride Carbon Dioxide BUN Creatinine Glucose POC Glucose 127 H 132 H Lactic Acid Calcium Phosphorus Magnesium AST ALT Alkaline Phosphatase Troponin T C-Reactive Protein Total Protein Albumin LDL Cholesterol Direct HDL Cholesterol Urine Creatinine Hepatitis C Antibody Crossmatch Crossmatch P[place]armed 12/25/17 12/25/17 12/25/17 00:03 04:34 06:25 WBC RBC Hgb Hct MCV MCH MCHC RDW Plt Count Lymph % (Auto) [place] % (Auto) Eos % (Auto) Lymph # [place] # Eos # Seg Neutrophils % Seg Neuts % (Manual) Lymphocytes % (Manual) Monocytes % (Manual) Eosinophils % (Manual) Nucleated RBC % Seg Neutrophils # Seg Neutrophils # Man Lymphocytes # (Manual) Monocytes # (Manual) Eosinophils # (Manual) PT INR POC ABG pH POC ABG pCO2 POC ABG pO2 Sodium Potassium Chloride Carbon Dioxide BUN 30 H Creatinine 0.6 L Glucose 114 H POC Glucose 128 H 136 H Lactic Acid Calcium 7.5 L Phosphorus Magnesium AST 84 H ALT 82 H Alkaline Phosphatase 322 H Troponin T C-Reactive Protein Total Protein 6.0 L Albumin 2.3 L LDL Cholesterol Direct HDL Cholesterol Urine Creatinine Hepatitis C Antibody Crossmatch Crossmatch P[place]armed 12/25/17 12/25/17 12/26/17 12:02 18:28 00:03 WBC RBC Hgb Hct MCV MCH MCHC RDW Plt Count Lymph % (Auto) [place] % (Auto) Eos % (Auto) Lymph # [place] # Eos # Seg Neutrophils % Seg Neuts % (Manual) Lymphocytes % (Manual) Monocytes % (Manual) Eosinophils % (Manual) Nucleated RBC % Seg Neutrophils # Seg Neutrophils # Man Lymphocytes # (Manual) Monocytes # (Manual) Eosinophils # (Manual) PT INR POC ABG pH POC ABG pCO2 POC ABG pO2 Sodium Potassium Chloride Carbon Dioxide BUN Creatinine Glucose POC Glucose 158 H 113 H 117 H Lactic Acid Calcium Phosphorus Magnesium AST ALT Alkaline Phosphatase Troponin T C-Reactive Protein Total Protein Albumin LDL Cholesterol Direct HDL Cholesterol Urine Creatinine Hepatitis C Antibody Crossmatch Crossmatch P[place]armed 12/26/17 12/26/17 12/26/17 04:26 06:35 08:47 WBC RBC Hgb Hct MCV MCH MCHC RDW Plt Count Lymph % (Auto) [place] % (Auto) Eos % (Auto) Lymph # [place] # Eos # Seg Neutrophils % Seg Neuts % (Manual) Lymphocytes % (Manual) Monocytes % (Manual) Eosinophils % (Manual) Nucleated RBC % Seg Neutrophils # Seg Neutrophils # Man Lymphocytes # (Manual) Monocytes # (Manual) Eosinophils # (Manual) PT INR POC ABG pH POC ABG pCO2 POC ABG pO2 Sodium Potassium 5.4 H D 3.3 L D Chloride Carbon Dioxide 21 L BUN 39 H Creatinine 0.7 L Glucose 121 H POC Glucose 122 H Lactic Acid Calcium 7.8 L Phosphorus Magnesium AST 144 H ALT 98 H Alkaline Phosphatase 330 H Troponin T C-Reactive Protein Total Protein 6.1 L Albumin 2.1 L LDL Cholesterol Direct HDL Cholesterol Urine Creatinine Hepatitis C Antibody Crossmatch Crossmatch P[place]armed 12/26/17 12/26/17 12/27/17 12:29 18:27 07:34 WBC RBC Hgb Hct MCV MCH MCHC RDW Plt Count Lymph % (Auto) [place] % (Auto) Eos % (Auto) Lymph # [place] # Eos # Seg Neutrophils % Seg Neuts % (Manual) Lymphocytes % (Manual) Monocytes % (Manual) Eosinophils % (Manual) Nucleated RBC % Seg Neutrophils # Seg Neutrophils # Man Lymphocytes # (Manual) Monocytes # (Manual) Eosinophils # (Manual) PT INR POC ABG pH POC ABG pCO2 POC ABG pO2 Sodium Potassium 3.1 L Chloride Carbon Dioxide BUN Creatinine 0.5 L Glucose POC Glucose 128 H 121 H Lactic Acid Calcium 7.7 L Phosphorus Magnesium AST 74 H ALT 80 H Alkaline Phosphatase 306 H Troponin T C-Reactive Protein Total Protein 6.1 L Albumin 2.1 L LDL Cholesterol Direct HDL Cholesterol Urine Creatinine Hepatitis C Antibody Crossmatch Crossmatch P[place]armed 12/27/17 12/28/17 12/28/17 07:34 04:59 04:59 WBC 11.1 H RBC 3.00 L Hgb 7.2 L Hct 23.6 L MCV 79 L MCH 24 L MCHC 31 L RDW 18.3 H Plt Count Lymph % (Auto) 10.0 L [place] % (Auto) 10.2 H Eos % (Auto) 6.7 H Lymph # 1.1 L [place] # 1.1 H Eos # 0.7 H Seg Neutrophils % 72.1 H Seg Neuts % (Manual) Lymphocytes % (Manual) Monocytes % (Manual) Eosinophils % (Manual) Nucleated RBC % Seg Neutrophils # 8.0 H Seg Neutrophils # Man Lymphocytes # (Manual) Monocytes # (Manual) Eosinophils # (Manual) PT INR POC ABG pH POC ABG pCO2 POC ABG pO2 Sodium Potassium Chloride Carbon Dioxide BUN Creatinine 0.4 L Glucose 102 H POC Glucose Lactic Acid Calcium 7.8 L Phosphorus Magnesium 1.30 L AST 58 H ALT 62 H Alkaline Phosphatase 274 H Troponin T C-Reactive Protein Total Protein 6.0 L Albumin 2.0 L LDL Cholesterol Direct HDL Cholesterol Urine Creatinine Hepatitis C Antibody Crossmatch Crossmatch Prewarmed
--- NOTE | 2017-12-28 11:17 | Progress Note ---
Assessment and Plan Assessment and plan: Admitted 11/12/17 Mr. 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 He had a Carotid doppler done that revealed a right ICA 50-79% stenosis. CTA of the neck revealed 80% stenosis of the right ICA with probable 50% stenosis of the origin of the right common carotid artery. His symptoms were thought to be due to the Carotid artery stenosis which was disheartening since he was on Aspirin and plavix. He was scheduled for right CEA but needed Cardiac clearance. He underwent stress test on 10/05/17 and Robotic Technician stated he was stable for non-cardiac history, low to moderate perioperative risk. So, he underwent right carotid enarterectomy on 10/09/17. Following the surgery, he developed recurrent left sided weakness/hemiparesis and was taken back to the OR on 10/10/17 for Open Thrombectomy of Right Internal Carotid Artery and Injection of tPA into the Artery. CT head obtained 2 days after surgery on 10/12 showed massive right cerebral hemisphere acute CVA with midline shift. He was subsequently discharged on 11/10/17 to [facility] but returned to [facility] ED and was re-admitted on 11/12/17 for suspected sepsis due to Aspiration post-obstructive pneumonia with suspected mucus plug and subsequently intubated on admission. On 11/20/17, patient went for Tracheostomy by Dr. Hughes, ENT. Then on 11/21/17 patient went into shock, most likely sepsis as WBC went up to 38.2k; initially thought to be due worsening aspiration pneumonia but it was discovered that he had a dislodged PEG tube from the Nursing, most likely present on admission, which lead to the shock from severe intra-abdominal infection/ peritonitis requiring IR drainage and General surgery drainage. Peritonitis - from dislodged peg tube, hence not present - has completed abx - s/p multiple intraabdominal drainages placed by IR and GS. -awaiting abdominal wounds to heal prior to placement of new PEG tube -Acute hypoxic respiratory failure due to Pneumonia on MV>96 hours s/p Tracheostomy 11/20/17: continue trache collar -septic shock, resolved -Aspiration pneumonia, resolved -Acute encephalopathy: currently at new baseline, non verbal, moves right side on command -Hypernatremia: improved with free water -Hypokalemia ; replaced hypomagnesemia: replace and monitor closely -ARF vasomotor nephropathy, poa: IV fluids, monitor bmp closely, received HD and now has renal recovery -Dysphagia with aspiration: s/p peg tube -Acute on chronic blood loss anemia w/Coffee-ground material from peg tube: GI is following, treat with ppi iv bid, EGD done 11/18/17 showed 8 mm cratered, 10 mm linear ulcer proximal lesser curvature with erythema but no other bleeding stigmata, gastritis and 4-5 cm hiatal hernia -Advance care planning: full code -Disposition: continue inpatient care, LTAC declined to accept patient without PEG tube. D/W Gen Sx, awaiting abdominal wounds to heal, then new peg tube prior to snf placement KILEY is daughter, Eugenie [phone], History Interval history: patient is calm and obeys simple commands no events, no agitation, no fevers no seizures, Hospitalist Physical - Physical exam Narrative exam: General appearance: Present:appears chronically ill - EENT Eyes: Present: PERRL - Neck Neck: Present: supple - Respiratory Respiratory effort: labored Respiratory: bilateral: rales - Cardiovascular Rhythm: regular Heart Sounds: Present: S1 & S2 - Extremities Extremities: no ischemia - Abdominal General gastrointestinal: soft, non-tender - Integumentary Integumentary: Present: clear, warm, dry - Psychiatric Psychiatric: non verbal, trached to trache collar - Neurologic Neurologic: left hemiplegia, able to move right side on command, but right side is weak condom cath in place - Constitutional Vitals: Temp Pulse Resp BP Pulse Ox 97.8 F 104 H 27 H 140/82 100 12/28/17 07:46 12/28/17 09:11 12/28/17 07:00 12/28/17 09:11 12/28/17 07:57 General appearance: Present: no acute distress Results - Labs CBC & Chem 7: 12/28/17 04:59 12/30/17 04:46 Labs: Laboratory Last Values WBC 11.1 K/mm3 (4.5-11.0) H 12/28/17 04:59 RBC 3.00 M/mm3 (3.65-5.03) L 12/28/17 04:59 Hgb 7.2 gm/dl (11.8-15.2) L 12/28/17 04:59 Hct 23.6 % (35.5-45.6) L 12/28/17 04:59 MCV 79 fl (84-94) L 12/28/17 04:59 MCH 24 pg (28-32) L 12/28/17 04:59 MCHC 31 % (32-34) L 12/28/17 04:59 RDW 18.3 % (13.2-15.2) H 12/28/17 04:59 Plt Count 201 K/mm3 (140-440) 12/28/17 04:59 Lymph % (Auto) 10.0 % (13.4-35.0) L 12/28/17 04:59 [place] % (Auto) 10.2 % (0.0-7.3) H 12/28/17 04:59 Eos % (Auto) 6.7 % (0.0-4.3) H 12/28/17 04:59 Baso % (Auto) 1.0 % (0.0-1.8) 12/28/17 04:59 Lymph # 1.1 K/mm3 (1.2-5.4) L 12/28/17 04:59 [place] # 1.1 K/mm3 (0.0-0.8) H 12/28/17 04:59 Eos # 0.7 K/mm3 (0.0-0.4) H 12/28/17 04:59 Baso # 0.1 K/mm3 (0.0-0.1) 12/28/17 04:59 Add Manual Diff Complete 12/20/17 19:00 Total Counted 100 12/20/17 19:00 Seg Neutrophils % 72.1 % (40.0-70.0) H 12/28/17 04:59 Seg Neuts % (Manual) 74.0 % (40.0-70.0) H 12/20/17 19:00 Band Neutrophils % 2.0 % 12/20/17 19:00 Lymphocytes % (Manual) 6.0 % (13.4-35.0) L 12/20/17 19:00 Reactive Lymphs % (Man) 0 % 12/20/17 19:00 Monocytes % (Manual) 17.0 % (0.0-7.3) H 12/20/17 19:00 Eosinophils % (Manual) 1.0 % (0.0-4.3) 12/20/17 19:00 Basophils % (Manual) 0 % (0.0-1.8) 12/20/17 19:00 Metamyelocytes % 0 % 12/20/17 19:00 Myelocytes % 0 % 12/20/17 19:00 Promyelocytes % 0 % 12/20/17 19:00 Blast Cells % 0 % 12/20/17 19:00 Nucleated RBC % Not Reportable 12/20/17 19:00 Seg Neutrophils # 8.0 K/mm3 (1.8-7.7) H 12/28/17 04:59 Seg Neutrophils # Man 6.4 K/mm3 (1.8-7.7) 12/20/17 19:00 Band Neutrophils # 0.2 K/mm3 12/20/17 19:00 Lymphocytes # (Manual) 0.5 K/mm3 (1.2-5.4) L 12/20/17 19:00 Abs React Lymphs (Man) 0.0 K/mm3 12/20/17 19:00 Monocytes # (Manual) 1.5 K/mm3 (0.0-0.8) H 12/20/17 19:00 Eosinophils # (Manual) 0.1 K/mm3 (0.0-0.4) 12/20/17 19:00 Basophils # (Manual) 0.0 K/mm3 (0.0-0.1) 12/20/17 19:00 Metamyelocytes # 0.0 K/mm3 12/20/17 19:00 Myelocytes # 0.0 K/mm3 12/20/17 19:00 Promyelocytes # 0.0 K/mm3 12/20/17 19:00 Blast Cells # 0.0 K/mm3 12/20/17 19:00 WBC Morphology Not Reportable 12/20/17 19:00 Hypersegmented Neuts Not Reportable 12/20/17 19:00 Hyposegmented Neuts Not Reportable 12/20/17 19:00 Hypogranular Neuts Not Reportable 12/20/17 19:00 Smudge Cells Not Reportable 12/20/17 19:00 Toxic Granulation Not Reportable 12/20/17 19:00 Toxic Vacuolation Not Reportable 12/20/17 19:00 Dohle Bodies Not Reportable 12/20/17 19:00 Pelger-Huet Anomaly Not Reportable 12/20/17 19:00 Evangelina Rods Not Reportable 12/20/17 19:00 Platelet Estimate Appears normal 12/20/17 19:00 Clumped Platelets Not Reportable 12/20/17 19:00 Plt Clumps, EDTA Not Reportable 12/20/17 19:00 Large Platelets Not Reportable 12/20/17 19:00 Giant Platelets Not Reportable 12/20/17 19:00 Platelet Satelliting Not Reportable 12/20/17 19:00 Plt Morphology Comment Not Reportable 12/20/17 19:00 RBC Morphology Not Reportable 12/20/17 19:00 Dimorphic RBCs Not Reportable 12/20/17 19:00 Polychromasia Not Reportable 12/20/17 19:00 Hypochromasia 2+ 12/20/17 19:00 Poikilocytosis Few 12/20/17 19:00 Anisocytosis 1+ 12/20/17 19:00 Microcytosis 1+ 12/20/17 19:00 Macrocytosis Not Reportable 12/20/17 19:00 Spherocytes Not Reportable 12/20/17 19:00 Pappenheimer Bodies Not Reportable 12/20/17 19:00 Sickle Cells Not Reportable 12/20/17 19:00 Target Cells Not Reportable 12/20/17 19:00 Tear Drop Cells Not Reportable 12/20/17 19:00 Ovalocytes Few 12/20/17 19:00 Stomatocytes 1+ 12/12/17 05:41 Helmet Cells Not Reportable 12/20/17 19:00 [place] Bodies Not Reportable 12/20/17 19:00 [place] Rings Not Reportable 12/20/17 19:00 [place] Cells Not Reportable 12/20/17 19:00 Bite Cells Not Reportable 12/20/17 19:00 Crenated Cell Not Reportable 12/20/17 19:00 Elliptocytes Not Reportable 12/20/17 19:00 Acanthocytes (Spur) Not Reportable 12/20/17 19:00 [place] Not Reportable 12/20/17 19:00 Hemoglobin C Crystals Not Reportable 12/20/17 19:00 Schistocytes Not Reportable 12/20/17 19:00 Malaria parasites Not Reportable 12/20/17 19:00 [place] Bodies Not Reportable 12/20/17 19:00 Hem Pathologist Commnt No 12/20/17 19:00 PT 15.4 Sec. (12.2-14.9) H 12/14/17 05:11 INR 1.17 (0.87-1.13) H 12/14/17 05:11 APTT 33.8 Sec. (24.2-36.6) 11/26/17 06:29 POC ABG pH 7.505 (7.35-7.45) H 11/23/17 04:56 POC ABG pCO2 26.3 (35-45) L 11/23/17 04:56 POC ABG pO2 100 (80-105) 11/23/17 04:56 POC ABG HCO3 20.8 11/23/17 04:56 POC ABG Total CO2 22 11/23/17 04:56 POC ABG O2 Sat 98 11/23/17 04:56 POC ABG Base Excess -2 11/23/17 04:56 FiO2 30 % 11/23/17 04:56 Sodium 140 mmol/L (137-145) 12/28/17 04:59 Potassium 4.7 mmol/L (3.6-5.0) D 12/28/17 04:59 Chloride 103.8 mmol/L (98-107) 12/28/17 04:59 Carbon Dioxide 26 mmol/L (22-30) 12/28/17 04:59 Anion Gap 15 mmol/L 12/28/17 04:59 BUN 17 mg/dL (9-20) 12/28/17 04:59 Creatinine 0.4 mg/dL (0.8-1.5) L 12/28/17 04:59 Estimated GFR > 60 ml/min 12/28/17 04:59 BUN/Creatinine Ratio 43 % 12/28/17 04:59 Glucose 102 mg/dL (75-100) H 12/28/17 04:59 POC Glucose 101 (70-105) 12/28/17 06:42 Lactic Acid 1.80 mmol/L (0.7-2.0) 11/27/17 04:06 Calcium 7.8 mg/dL (8.4-10.2) L 12/28/17 04:59 Phosphorus 1.60 mg/dL (2.5-4.5) L 12/20/17 19:00 Magnesium 1.70 mg/dL (1.7-2.3) 12/28/17 04:59 Total Bilirubin 0.30 mg/dL (0.1-1.2) 12/28/17 04:59 AST 58 units/L (5-40) H 12/28/17 04:59 ALT 62 units/L (7-56) H 12/28/17 04:59 Alkaline Phosphatase 274 units/L (35-129) H 12/28/17 04:59 Total Creatine Kinase 84 units/L (55-170) 11/12/17 20:03 CK-MB (CK-2) < 1.0 ng/mL (0.0-4.0) 11/12/17 20:03 CK-MB (CK-2) Rel Index 1.1 (0-4) 11/12/17 20:03 Troponin T 0.098 ng/mL (0.00-0.029) H 11/12/17 Unknown C-Reactive Protein 25.70 mg/dL (0.00-1.30) H 11/11/17 23:20 NT-Pro-B Natriuret Pep 792.4 pg/mL (0-900) 11/11/17 23:20 Total Protein 6.0 g/dL (6.3-8.2) L 12/28/17 04:59 Albumin 2.0 g/dL (3.9-5) L 12/28/17 04:59 Albumin/Globulin Ratio 0.5 % 12/28/17 04:59 Triglycerides 86 mg/dL (2-149) 11/11/17 23:20 Cholesterol 82 mg/dL (50-199) 11/11/17 23:20 LDL Cholesterol Direct 42 mg/dL (50-130) L 11/11/17 23:20 HDL Cholesterol 24 mg/dL (40-59) L 11/11/17 23:20 Cholesterol/HDL Ratio 3.41 % 11/11/17 23:20 Lipase 30 units/L (13-60) 08/22/18 23:20 Urine Color Nicole (Yellow) 11/11/17 23:09 Urine Turbidity Cloudy (Clear) 11/11/17 23:09 Urine pH 5.0 (5.0-7.0) 11/11/17 23:09 Ur Specific [place] 1.025 (1.003-1.030) 11/11/17 23:09 Urine Protein 100 mg/dl mg/dL (Negative) 11/11/17 23:09 Urine Glucose (UA) 50 mg/dL (Negative) 11/11/17 23:09 Urine Ketones Neg mg/dL (Negative) 11/11/17 23:09 Urine Blood Neg (Negative) 11/11/17 23:09 Urine Nitrite Neg (Negative) 11/11/17 23:09 Urine Bilirubin Neg (Negative) 11/11/17 23:09 Urine Urobilinogen 4.0 mg/dL (<2.0) 11/11/17 23:09 Ur Leukocyte Esterase Neg (Negative) 11/11/17 23:09 Urine WBC (Auto) 5.0 /HPF (0.0-6.0) 11/11/17 23:09 Urine RBC (Auto) 4.0 /HPF (0.0-6.0) 11/11/17 23:09 Urine Bacteria (Auto) 3+ /HPF (Negative) 11/11/17 23:09 Amorphous Crystals 3+ 11/11/17 23:09 Hyaline Casts 76 /LPF 11/11/17 23:09 Urine Mucus 2+ /HPF 11/11/17 23:09 Urine Total Volume 1350 12/22/17 10:50 Urine Creatinine 55.8 mg/dL (0.1-20.0) H 12/22/17 10:50 Ur Creatinine 24 Hour 0.8 (0.8-2.8) 12/22/17 10:50 Hepatitis A IgM Ab Non-reactive (NonReactive) 11/22/17 19:45 Hep Bs Antigen Non-reactive (Negative) 11/22/17 19:45 Hep B Core IgM Ab Non-reactive (NonReactive) 11/22/17 19:45 Hepatitis C Antibody Reactive (NonReactive) A 11/22/17 19:45 Blood Type A POSITIVE 12/16/17 13:01 Antibody Screen Positive 12/16/17 13:01 SANT[place] Antibody Screen Cancelled 12/16/17 13:01 Antibody Identification Cold Antibody 12/16/17 13:01 Crossmatch See Detail 12/16/17 13:01 Crossmatch Prewarmed See Detail 12/16/17 13:01
--- NOTE | 2017-12-28 14:51 | Progress Note ---
Assessment and Plan - Patient Problems (1) Gastrostomy malfunction Current Visit: Yes Status: Acute Plan to address problem: Pt is stable. After reviewing the records, discussing the case with multiple attendings, and seeing the patient, it is clear that we do not have an acute perforation. Most likely, the PEG tube started to migrate out of position prior to 11/18 as evidenced by no PEG button seen on EGD and no obvious hole in the stomach. As the contrast is restricted to certain areas in the abdomen, the fluid is loculated. The "ascites" may be tube feeds and/or reactionary fluid. Regardless, patient is not showing signs of obvious peritonitis. In this case, it may be prudent to try placing a few drains in the abdomen to remove that largest collections. I have already discussed this case with Dr. oMreira who agreed to review the case and see if that was possible. The alternative would be to take the patient for an ex-lap and washout the abdomen. I'm concerned that there may be a lot of inflammatory changes in the abdomen which would put him at risk for bowel injuries from the procedure. Therefore, this will be our back-up plan if the drains do not resolve the problem. As for nutritional access , for now, I would recommend an NGT. I doubt he has an active leak, so there is no need to test the stomach prior to using it. I have explained this plan in detail to the daughter (Jannette) and the attendings from ICU, GI, and hospitalist service. All were in agreement. - 11/25/17 Initial Consult Pt appears stable. s/p dx lap and washout - 12/03 POD#25. Pt stable. Will leave drains until output slows down and clears up. Would leave surgical incisions open to air. Kamar removed today. Please call with questions. Will follow along peripherally. Time=10min Subjective Date of service: 12/28/17 Patient Reports: Positive: other (today, patients into appropriately indicate yes and no. He indicated yes that he could hear me. He denied any abdominal pain.) Objective Vital Signs - 12hr 12/28/17 12/28/17 12/28/17 03:00 04:00 05:00 Temperature 97.2 F L Pulse Rate 98 H 111 H 102 H Pulse Rate [ Right From Monitor] Respiratory 23 24 25 H Rate Blood Pressure 134/87 134/87 141/85 O2 Sat by Pulse 100 99 97 Oximetry O2 Sat by Pulse Oximetry [ Assessment] 12/28/17 12/28/17 12/28/17 06:00 07:00 07:46 Temperature 97.8 F Pulse Rate 106 H 115 H Pulse Rate [ Right From Monitor] Respiratory 28 H 27 H Rate Blood Pressure 140/90 140/90 O2 Sat by Pulse 100 99 Oximetry O2 Sat by Pulse Oximetry [ Assessment] 12/28/17 12/28/17 12/28/17 07:57 08:00 09:00 Temperature Pulse Rate 105 H 101 H Pulse Rate [ Right From Monitor] Respiratory 32 H 32 H Rate Blood Pressure 141/83 140/82 O2 Sat by Pulse 100 100 100 Oximetry O2 Sat by Pulse 100 Oximetry [ Assessment] 12/28/17 12/28/17 12/28/17 09:11 10:00 11:00 Temperature Pulse Rate 104 H 99 H 106 H Pulse Rate [ 109 H Right From Monitor] Respiratory 16 34 H Rate Blood Pressure 140/82 140/82 170/95 O2 Sat by Pulse 99 100 Oximetry O2 Sat by Pulse Oximetry [ Assessment] 12/28/17 12/28/17 11:52 12:00 Temperature 98.5 F Pulse Rate Pulse Rate [ 98 H Right From Monitor] Respiratory 25 H Rate Blood Pressure O2 Sat by Pulse 99 Oximetry O2 Sat by Pulse Oximetry [ Assessment] - General physical appearance no distress, no pain, other (Awake. Respond to voice. Made eye contact.) - Eyes normal occular movement - Respiratory normal expansion, normal respiratory effort - Abdomen soft, not tender, not guarding, not rigid, surgical scars (C/d/I - kamar removed), other (drains still with purulent drainage) - Integumentary no rash, no growths, no abnormal pigmentation - Labs 12/28/17 04:59 12/28/17 04:59 Diabetes panel 12/28/17 Range/Units 04:59 Sodium 140 (137-145) mmol/L Potassium 4.7 D (3.6-5.0) mmol/L Chloride 103.8 (98-107) mmol/L Carbon Dioxide 26 (22-30) mmol/L BUN 17 (9-20) mg/dL Creatinine 0.4 L (0.8-1.5) mg/dL Glucose 102 H (75-100) mg/dL Calcium 7.8 L (8.4-10.2) mg/dL AST 58 H (5-40) units/L ALT 62 H (7-56) units/L Alkaline Phosphatase 274 H (35-129) units/L Total Protein 6.0 L (6.3-8.2) g/dL Albumin 2.0 L (3.9-5) g/dL Calcium panel 12/28/17 Range/Units 04:59 Calcium 7.8 L (8.4-10.2) mg/dL Albumin 2.0 L (3.9-5) g/dL Pituitary panel 12/28/17 Range/Units 04:59 Sodium 140 (137-145) mmol/L Potassium 4.7 D (3.6-5.0) mmol/L Chloride 103.8 (98-107) mmol/L Carbon Dioxide 26 (22-30) mmol/L BUN 17 (9-20) mg/dL Creatinine 0.4 L (0.8-1.5) mg/dL Glucose 102 H (75-100) mg/dL Calcium 7.8 L (8.4-10.2) mg/dL Adrenal panel 12/28/17 Range/Units 04:59 Sodium 140 (137-145) mmol/L Potassium 4.7 D (3.6-5.0) mmol/L Chloride 103.8 (98-107) mmol/L Carbon Dioxide 26 (22-30) mmol/L BUN 17 (9-20) mg/dL Creatinine 0.4 L (0.8-1.5) mg/dL Glucose 102 H (75-100) mg/dL Calcium 7.8 L (8.4-10.2) mg/dL Total Bilirubin 0.30 (0.1-1.2) mg/dL AST 58 H (5-40) units/L ALT 62 H (7-56) units/L Alkaline Phosphatase 274 H (35-129) units/L Total Protein 6.0 L (6.3-8.2) g/dL Albumin 2.0 L (3.9-5) g/dL
[2017-12-29] MEDS: NACL 0.45% 1000 ML 1,000 ML IV SCH (01:14)
[2017-12-29 05:12] LABS: Alanine Aminotransferase 56 units/L (7-56); Albumin 2.3 g/dL (3.9-5); BUN/Creatinine Ratio 36; Blood Urea Nitrogen 18 mg/dL (9-20); Calcium 7.8 mg/dL (8.4-10.2); Hemolysis Index 43
--- NOTE | 2017-12-29 08:49 | Progress Note ---
Assessment and Plan Assessment * Acute kidney injury secondary to ATN --Intermittent HD started on 11/23/17 * Sepsis secondary to peritonitis/PEG malpositioning --RUQ/LUQ drains: Enterobacter, Heather (non albicans) * Aspiration pneumonitis related to above * Anemia * Acute CVA * Carotid artery disease s/p CEA * Encephalopathy Plan: * off dialysis. follow up 24hr crcl 65ml/min * vasc cath has been removed * replete k and mag prn, Hypomagnesemia and hypokalemia has been corrected * Continue 1/2 ns . Kcl Discontinued * Abx per ID * prbcs prn * Strict I/O * Avoid potential nephrptoxins * Dose medications for renal function * Replete lytes prn * Avoid nephrotoxins Subjective Date of service: 12/29/17 Principal diagnosis: Acute hypoxic respiratory failure, s/p Trach Interval history: patient currently with trache . Awake . Comfortable . Dubhoff tube in place Objective - Vital Signs Vital signs: Vital Signs - 12hr 12/28/17 12/28/17 12/28/17 21:00 21:43 22:00 Temperature Pulse Rate 107 H 116 H 117 H Pulse Rate [ Right From Monitor] Respiratory 22 16 Rate Blood Pressure 152/91 152/91 142/95 O2 Sat by Pulse 100 100 Oximetry O2 Sat by Pulse Oximetry [ Assessment] 12/28/17 12/28/17 12/29/17 23:00 23:22 00:00 Temperature 99.3 F Pulse Rate 106 H 113 H 118 H Pulse Rate [ 133 H Right From Monitor] Respiratory 21 24 27 H Rate Blood Pressure 159/91 159/91 159/89 O2 Sat by Pulse 95 96 94 Oximetry O2 Sat by Pulse Oximetry [ Assessment] 12/29/17 12/29/17 12/29/17 01:00 02:00 03:00 Temperature Pulse Rate 141 H 149 H Pulse Rate [ Right From Monitor] Respiratory 25 H 33 H Rate Blood Pressure 159/89 137/81 137/81 O2 Sat by Pulse 94 95 Oximetry O2 Sat by Pulse 96 Oximetry [ Assessment] 12/29/17 12/29/17 12/29/17 04:00 05:00 06:00 Temperature 98.9 F Pulse Rate 136 H 121 H 123 H Pulse Rate [ 137 H Right From Monitor] Respiratory 34 H 31 H 37 H Rate Blood Pressure 121/70 107/67 107/67 O2 Sat by Pulse 95 96 97 Oximetry O2 Sat by Pulse Oximetry [ Assessment] 12/29/17 12/29/17 12/29/17 07:00 08:00 08:32 Temperature Pulse Rate 115 H 109 H Pulse Rate [ Right From Monitor] Respiratory 29 H 24 Rate Blood Pressure 100/55 100/55 O2 Sat by Pulse 97 96 99 Oximetry O2 Sat by Pulse 99 Oximetry [ Assessment] - General Appearance General appearance: well-developed, well-nourished, appears stated age EENT: ATNC, PERRL Neck: other (trache in place ) Respiratory: Present: [facility] Cardiology: regular, normal heart rate, S1S2, no murmurs Gastrointestinal: normoactive bowel sounds, other (drain noted in left flank ) Integumentary: other (no edema ) - Lab 12/28/17 04:59 12/29/17 04:02 Most recent lab results Calcium 7.8 mg/dL (8.4-10.2) L 12/29/17 04:02 Phosphorus 1.60 mg/dL (2.5-4.5) L 12/20/17 19:00 Magnesium 1.40 mg/dL (1.7-2.3) L 12/29/17 04:02 Urine Creatinine 55.8 mg/dL (0.1-20.0) H 12/22/17 10:50
[2017-12-29] MEDS: PREVACID SOLUTAB FEEDTUBE SCH ×2 (09:23→21:02)
[2017-12-29] MEDS: LOPRESSOR PO SCH ×2 (09:23→21:02)
[2017-12-29] MEDS: MAG-OX PO SCH ×2 (09:23→21:02)
[2017-12-29] MEDS: POTASSIUM CHLORIDE FEEDTUBE SCH ×2 (09:23→21:02)
--- NOTE | 2017-12-29 12:07 | Progress Note ---
Assessment and Plan Assessment and plan: Admitted 11/12/17 Mr. Echavarria is a 67 yo man with a history of hypertension, prior CVA without known deficits, OA and CAD who initially presented to [facility] ED on 10/04/17 with left facial droop, difficult speaking and inability to move left side as well as chest pains. He had a Carotid doppler done that revealed a right ICA 50-79% stenosis. CTA of the neck revealed 80% stenosis of the right ICA with probable 50% stenosis of the origin of the right common carotid artery. His symptoms were thought to be due to the Carotid artery stenosis which was disheartening since he was on Aspirin and plavix. He was scheduled for right CEA but needed Cardiac clearance. He underwent stress test on 10/05/17 and Credit Product Analyst stated he was stable for non-cardiac history, low to moderate perioperative risk. So, he underwent right carotid enarterectomy on 10/09/17. Following the surgery, he developed recurrent left sided weakness/hemiparesis and was taken back to the OR on 10/10/17 for Open Thrombectomy of Right Internal Carotid Artery and Injection of tPA into the Artery. CT head obtained 2 days after surgery on 10/12 showed massive right cerebral hemisphere acute CVA with midline shift. He was subsequently discharged on 11/10/17 to [facility] but returned to [facility] ED and was re-admitted on 11/12/17 for suspected sepsis due to Aspiration post-obstructive pneumonia with suspected mucus plug and subsequently intubated on admission. On 11/20/17, patient went for Tracheostomy by Dr. Hughes, ENT. Then on 11/21/17 patient went into shock, most likely sepsis as WBC went up to 38.2k; initially thought to be due worsening aspiration pneumonia but it was discovered that he had a dislodged PEG tube from the Nursing, most likely present on admission, which lead to the shock from severe intra-abdominal infection/ peritonitis requiring IR drainage and General surgery drainage. Peritonitis - from dislodged peg tube, hence not present - has completed abx - s/p multiple intraabdominal drainages placed by IR and GS. -awaiting abdominal wounds to heal prior to placement of new PEG tube -Acute hypoxic respiratory failure due to Pneumonia on MV>96 hours s/p Tracheostomy 11/20/17: continue trache collar -septic shock, resolved -Aspiration pneumonia, resolved -Acute encephalopathy: currently at new baseline, non verbal, moves right side on command -Hypernatremia: improved with free water -Hypokalemia ; replaced hypomagnesemia: replace and monitor closely -ARF vasomotor nephropathy, poa: IV fluids, monitor bmp closely, received HD and now has renal recovery -Dysphagia with aspiration: s/p peg tube -Acute on chronic blood loss anemia w/Coffee-ground material from peg tube: GI is following, treat with ppi iv bid, EGD done 11/18/17 showed 8 mm cratered, 10 mm linear ulcer proximal lesser curvature with erythema but no other bleeding stigmata, gastritis and 4-5 cm hiatal hernia -Advance care planning: full code -Disposition: continue inpatient care, LTAC declined to accept patient without PEG tube. D/W Gen Sx, awaiting abdominal wounds to heal, then new peg tube prior to snf placement KILEY is daughter, Eugenie [phone], History Interval history: patient is calm and obeys simple commands no events, no agitation, no fevers no seizures, Hospitalist Physical - Physical exam Narrative exam: General appearance: Present:appears chronically ill - EENT Eyes: Present: PERRL - Neck Neck: Present: supple - Respiratory Respiratory effort: labored Respiratory: bilateral: rales - Cardiovascular Rhythm: regular Heart Sounds: Present: S1 & S2 - Extremities Extremities: no ischemia - Abdominal General gastrointestinal: soft, non-tender - Integumentary Integumentary: Present: clear, warm, dry - Psychiatric Psychiatric: non verbal, trached to trache collar - Neurologic Neurologic: left hemiplegia, able to move right side on command, but right side is weak condom cath in place - Constitutional Vitals: Temp Pulse Resp BP Pulse Ox 98.9 F 100 H 29 H 117/70 97 12/29/17 04:00 12/29/17 11:00 12/29/17 11:00 12/29/17 11:00 12/29/17 11:00 General appearance: Present: no acute distress Results - Labs CBC & Chem 7: 12/28/17 04:59 12/30/17 04:46 Labs: Laboratory Last Values WBC 11.1 K/mm3 (4.5-11.0) H 12/28/17 04:59 RBC 3.00 M/mm3 (3.65-5.03) L 12/28/17 04:59 Hgb 7.2 gm/dl (11.8-15.2) L 12/28/17 04:59 Hct 23.6 % (35.5-45.6) L 12/28/17 04:59 MCV 79 fl (84-94) L 12/28/17 04:59 MCH 24 pg (28-32) L 12/28/17 04:59 MCHC 31 % (32-34) L 12/28/17 04:59 RDW 18.3 % (13.2-15.2) H 12/28/17 04:59 Plt Count 201 K/mm3 (140-440) 12/28/17 04:59 Lymph % (Auto) 10.0 % (13.4-35.0) L 12/28/17 04:59 [place] % (Auto) 10.2 % (0.0-7.3) H 12/28/17 04:59 Eos % (Auto) 6.7 % (0.0-4.3) H 12/28/17 04:59 Baso % (Auto) 1.0 % (0.0-1.8) 12/28/17 04:59 Lymph # 1.1 K/mm3 (1.2-5.4) L 12/28/17 04:59 [place] # 1.1 K/mm3 (0.0-0.8) H 12/28/17 04:59 Eos # 0.7 K/mm3 (0.0-0.4) H 12/28/17 04:59 Baso # 0.1 K/mm3 (0.0-0.1) 12/28/17 04:59 Add Manual Diff Complete 12/20/17 19:00 Total Counted 100 12/20/17 19:00 Seg Neutrophils % 72.1 % (40.0-70.0) H 12/28/17 04:59 Seg Neuts % (Manual) 74.0 % (40.0-70.0) H 12/20/17 19:00 Band Neutrophils % 2.0 % 12/20/17 19:00 Lymphocytes % (Manual) 6.0 % (13.4-35.0) L 12/20/17 19:00 Reactive Lymphs % (Man) 0 % 12/20/17 19:00 Monocytes % (Manual) 17.0 % (0.0-7.3) H 12/20/17 19:00 Eosinophils % (Manual) 1.0 % (0.0-4.3) 12/20/17 19:00 Basophils % (Manual) 0 % (0.0-1.8) 12/20/17 19:00 Metamyelocytes % 0 % 12/20/17 19:00 Myelocytes % 0 % 12/20/17 19:00 Promyelocytes % 0 % 12/20/17 19:00 Blast Cells % 0 % 12/20/17 19:00 Nucleated RBC % Not Reportable 12/20/17 19:00 Seg Neutrophils # 8.0 K/mm3 (1.8-7.7) H 12/28/17 04:59 Seg Neutrophils # Man 6.4 K/mm3 (1.8-7.7) 12/20/17 19:00 Band Neutrophils # 0.2 K/mm3 12/20/17 19:00 Lymphocytes # (Manual) 0.5 K/mm3 (1.2-5.4) L 12/20/17 19:00 Abs React Lymphs (Man) 0.0 K/mm3 12/20/17 19:00 Monocytes # (Manual) 1.5 K/mm3 (0.0-0.8) H 12/20/17 19:00 Eosinophils # (Manual) 0.1 K/mm3 (0.0-0.4) 12/20/17 19:00 Basophils # (Manual) 0.0 K/mm3 (0.0-0.1) 12/20/17 19:00 Metamyelocytes # 0.0 K/mm3 12/20/17 19:00 Myelocytes # 0.0 K/mm3 12/20/17 19:00 Promyelocytes # 0.0 K/mm3 12/20/17 19:00 Blast Cells # 0.0 K/mm3 12/20/17 19:00 WBC Morphology Not Reportable 12/20/17 19:00 Hypersegmented Neuts Not Reportable 12/20/17 19:00 Hyposegmented Neuts Not Reportable 12/20/17 19:00 Hypogranular Neuts Not Reportable 12/20/17 19:00 Smudge Cells Not Reportable 12/20/17 19:00 Toxic Granulation Not Reportable 12/20/17 19:00 Toxic Vacuolation Not Reportable 12/20/17 19:00 Dohle Bodies Not Reportable 12/20/17 19:00 Pelger-Huet Anomaly Not Reportable 12/20/17 19:00 Evangelina Rods Not Reportable 12/20/17 19:00 Platelet Estimate Appears normal 12/20/17 19:00 Clumped Platelets Not Reportable 12/20/17 19:00 Plt Clumps, EDTA Not Reportable 12/20/17 19:00 Large Platelets Not Reportable 12/20/17 19:00 Giant Platelets Not Reportable 12/20/17 19:00 Platelet Satelliting Not Reportable 12/20/17 19:00 Plt Morphology Comment Not Reportable 12/20/17 19:00 RBC Morphology Not Reportable 12/20/17 19:00 Dimorphic RBCs Not Reportable 12/20/17 19:00 Polychromasia Not Reportable 12/20/17 19:00 Hypochromasia 2+ 12/20/17 19:00 Poikilocytosis Few 12/20/17 19:00 Anisocytosis 1+ 12/20/17 19:00 Microcytosis 1+ 12/20/17 19:00 Macrocytosis Not Reportable 12/20/17 19:00 Spherocytes Not Reportable 12/20/17 19:00 Pappenheimer Bodies Not Reportable 12/20/17 19:00 Sickle Cells Not Reportable 12/20/17 19:00 Target Cells Not Reportable 12/20/17 19:00 Tear Drop Cells Not Reportable 12/20/17 19:00 Ovalocytes Few 12/20/17 19:00 Stomatocytes 1+ 12/12/17 05:41 Helmet Cells Not Reportable 12/20/17 19:00 [place] Bodies Not Reportable 12/20/17 19:00 [place] Rings Not Reportable 12/20/17 19:00 Lucretia Cells Not Reportable 12/20/17 19:00 Bite Cells Not Reportable 12/20/17 19:00 Crenated Cell Not Reportable 12/20/17 19:00 Elliptocytes Not Reportable 12/20/17 19:00 Acanthocytes (Spur) Not Reportable 12/20/17 19:00 Rouleaux Not Reportable 12/20/17 19:00 Hemoglobin C Crystals Not Reportable 12/20/17 19:00 Schistocytes Not Reportable 12/20/17 19:00 Malaria parasites Not Reportable 12/20/17 19:00 [place] Bodies Not Reportable 12/20/17 19:00 Hem Pathologist Commnt No 12/20/17 19:00 PT 15.4 Sec. (12.2-14.9) H 12/14/17 05:11 INR 1.17 (0.87-1.13) H 12/14/17 05:11 APTT 33.8 Sec. (24.2-36.6) 11/26/17 06:29 POC ABG pH 7.505 (7.35-7.45) H 11/23/17 04:56 POC ABG pCO2 26.3 (35-45) L 11/23/17 04:56 POC ABG pO2 100 (80-105) 11/23/17 04:56 POC ABG HCO3 20.8 11/23/17 04:56 POC ABG Total CO2 22 11/23/17 04:56 POC ABG O2 Sat 98 11/23/17 04:56 POC ABG Base Excess -2 11/23/17 04:56 FiO2 30 % 11/23/17 04:56 Sodium 140 mmol/L (137-145) 12/29/17 04:02 Potassium 4.2 mmol/L (3.6-5.0) 12/29/17 04:02 Chloride 102.7 mmol/L (98-107) 12/29/17 04:02 Carbon Dioxide 22 mmol/L (22-30) 12/29/17 04:02 Anion Gap 20 mmol/L 12/29/17 04:02 BUN 18 mg/dL (9-20) 12/29/17 04:02 Creatinine 0.5 mg/dL (0.8-1.5) L 12/29/17 04:02 Estimated GFR > 60 ml/min 12/29/17 04:02 BUN/Creatinine Ratio 36 % 12/29/17 04:02 Glucose 95 mg/dL (75-100) 12/29/17 04:02 POC Glucose 90 (70-105) 12/29/17 05:17 Lactic Acid 1.80 mmol/L (0.7-2.0) 11/27/17 04:06 Calcium 7.8 mg/dL (8.4-10.2) L 12/29/17 04:02 Phosphorus 1.60 mg/dL (2.5-4.5) L 12/20/17 19:00 Magnesium 1.40 mg/dL (1.7-2.3) L 12/29/17 04:02 Total Bilirubin 0.50 mg/dL (0.1-1.2) 12/29/17 04:02 AST 50 units/L (5-40) H 12/29/17 04:02 ALT 56 units/L (7-56) 12/29/17 04:02 Alkaline Phosphatase 311 units/L (35-129) H 12/29/17 04:02 Total Creatine Kinase 84 units/L (55-170) 11/12/17 20:03 CK-MB (CK-2) < 1.0 ng/mL (0.0-4.0) 11/12/17 20:03 CK-MB (CK-2) Rel Index 1.1 (0-4) 11/12/17 20:03 Troponin T 0.098 ng/mL (0.00-0.029) H 11/12/17 Unknown C-Reactive Protein 25.70 mg/dL (0.00-1.30) H 11/11/17 23:20 NT-Pro-B Natriuret Pep 792.4 pg/mL (0-900) 11/11/17 23:20 Total Protein 5.9 g/dL (6.3-8.2) L 12/29/17 04:02 Albumin 2.3 g/dL (3.9-5) L 12/29/17 04:02 Albumin/Globulin Ratio 0.6 % 12/29/17 04:02 Triglycerides 86 mg/dL (2-149) 11/11/17 23:20 Cholesterol 82 mg/dL (50-199) 11/11/17 23:20 LDL Cholesterol Direct 42 mg/dL (50-130) L 11/11/17 23:20 HDL Cholesterol 24 mg/dL (40-59) L 11/11/17 23:20 Cholesterol/HDL Ratio 3.41 % 11/11/17 23:20 Lipase 30 units/L (13-60) 11/11/17 23:20 Urine Color Nicole (Yellow) 11/11/17 23:09 Urine Turbidity Cloudy (Clear) 11/11/17 23:09 Urine pH 5.0 (5.0-7.0) 11/11/17 23:09 Ur Specific [place] 1.025 (1.003-1.030) 11/11/17 23:09 Urine Protein 100 mg/dl mg/dL (Negative) 11/11/17 23:09 Urine Glucose (UA) 50 mg/dL (Negative) 11/11/17 23:09 Urine Ketones Neg mg/dL (Negative) 11/11/17 23:09 Urine Blood Neg (Negative) 11/11/17 23:09 Urine Nitrite Neg (Negative) 11/11/17 23:09 Urine Bilirubin Neg (Negative) 11/11/17 23:09 Urine Urobilinogen 4.0 mg/dL (<2.0) 11/11/17 23:09 Ur Leukocyte Esterase Neg (Negative) 11/11/17 23:09 Urine WBC (Auto) 5.0 /HPF (0.0-6.0) 11/11/17 23:09 Urine RBC (Auto) 4.0 /HPF (0.0-6.0) 11/11/17 23:09 Urine Bacteria (Auto) 3+ /HPF (Negative) 11/11/17 23:09 Amorphous Crystals 3+ 11/11/17 23:09 Hyaline Casts 76 /LPF 11/11/17 23:09 Urine Mucus 2+ /HPF 11/11/17 23:09 Urine Total Volume 1350 12/22/17 10:50 Urine Creatinine 55.8 mg/dL (0.1-20.0) H 12/22/17 10:50 Ur Creatinine 24 Hour 0.8 (0.8-2.8) 12/22/17 10:50 Hepatitis A IgM Ab Non-reactive (NonReactive) 11/22/17 19:45 Hep Bs Antigen Non-reactive (Negative) 11/22/17 19:45 Hep B Core IgM Ab Non-reactive (NonReactive) 11/22/17 19:45 Hepatitis C Antibody Reactive (NonReactive) A 11/22/17 19:45 Blood Type A POSITIVE 12/16/17 13:01 Antibody Screen Positive 12/16/17 13:01 SANTANA Antibody Screen Cancelled 09/26/18 13:01 Antibody Identification Cold Antibody 12/16/17 13:01 Crossmatch See Detail 12/16/17 13:01 Crossmatch Prewarmed See Detail 12/16/17 13:01
--- NOTE | 2017-12-29 12:27 | Progress Note ---
Assessment and Plan 67 y/o male with acute on chronic respiratory failure, now trached, with peritonitis from dislodged peg tube s/p 2 IR drains now with NGT feedings. No new recs for today. Please see below. 1. Trach Care. Trach is permanent as patient cannot clear his secretions himself 2. Off IV abx therapy now 3. Electrolytes per primary and renal, now off HD 4. Will continue to follow along with you. Subjective Date of service: 12/29/17 Principal diagnosis: Acute hypoxic respiratory failure, s/p Trach Interval history: No acute events. Objective Vital Signs - 12hr 12/29/17 12/29/17 12/29/17 01:00 02:00 03:00 Temperature Pulse Rate 141 H 149 H Pulse Rate [ Left] Pulse Rate [ Right From Monitor] Respiratory 25 H 33 H Rate Blood Pressure 159/89 137/81 137/81 O2 Sat by Pulse 94 95 Oximetry O2 Sat by Pulse 96 Oximetry [ Assessment] 12/29/17 12/29/17 12/29/17 04:00 05:00 06:00 Temperature 98.9 F Pulse Rate 136 H 121 H 123 H Pulse Rate [ Left] Pulse Rate [ 137 H Right From Monitor] Respiratory 34 H 31 H 37 H Rate Blood Pressure 121/70 107/67 107/67 O2 Sat by Pulse 95 96 97 Oximetry O2 Sat by Pulse Oximetry [ Assessment] 12/29/17 12/29/17 12/29/17 07:00 08:00 08:32 Temperature Pulse Rate 115 H 109 H Pulse Rate [ 108 H Left] Pulse Rate [ Right From Monitor] Respiratory 29 H 26 H Rate Blood Pressure 100/55 102/58 O2 Sat by Pulse 97 96 99 Oximetry O2 Sat by Pulse 99 Oximetry [ Assessment] 12/29/17 12/29/17 12/29/17 09:00 09:23 10:00 Temperature Pulse Rate 103 H 114 H Pulse Rate [ Left] Pulse Rate [ Right From Monitor] Respiratory 28 H 29 H Rate Blood Pressure 116/62 116/62 125/68 O2 Sat by Pulse 98 99 Oximetry O2 Sat by Pulse Oximetry [ Assessment] 12/29/17 11:00 Temperature Pulse Rate 100 H Pulse Rate [ Left] Pulse Rate [ Right From Monitor] Respiratory 29 H Rate Blood Pressure 117/70 O2 Sat by Pulse 97 Oximetry O2 Sat by Pulse Oximetry [ Assessment] Constitutional: no acute distress, alert Eyes: non-icteric ENT: oropharynx moist Neck: supple (trach in position) Effort: normal Ascultation: Bilateral: clear, rales (few bilaterally), rhonchi (mild bilateral) , other (coarse BS bilaterally) Cardiovascular: regular rate and rhythm Gastrointestinal: normoactive bowel sounds, soft, non-tender, other (drains in place) Integumentary: normal Extremities: no cyanosis, pink and warm, edema (2+ bilateral LE edema) Neurologic: other (L hemiparesis,awake, response to my voice) Psychiatric: other (unable to assess) CBC and BMP: 12/28/17 04:59 12/29/17 04:02 ABG, PT/INR, D-dimer: ABG POC ABG pH 7.505 (7.35-7.45) H 11/23/17 04:56 POC ABG pCO2 26.3 (35-45) L 11/23/17 04:56 POC ABG pO2 100 (80-105) 11/23/17 04:56 POC ABG HCO3 20.8 11/23/17 04:56 POC ABG Total CO2 22 11/23/17 04:56 POC ABG O2 Sat 98 11/23/17 04:56 PT/INR, D-dimer PT 15.4 Sec. (12.2-14.9) H 12/14/17 05:11 INR 1.17 (0.87-1.13) H 12/14/17 05:11 Abnormal lab findings: Abnormal Labs 11/11/17 11/11/17 11/11/17 23:18 23:20 23:20 WBC RBC Hgb 10.4 L Hct 32.6 L D MCV MCH 27 L MCHC RDW 17.4 H Plt Count 105 L Lymph % (Auto) [place] % (Auto) Eos % (Auto) Lymph # [place] # Eos # Seg Neutrophils % Seg Neuts % (Manual) Lymphocytes % (Manual) 8.0 L Monocytes % (Manual) Eosinophils % (Manual) Nucleated RBC % 1.0 H Seg Neutrophils # Seg Neutrophils # Man Lymphocytes # (Manual) 0.7 L Monocytes # (Manual) Eosinophils # (Manual) PT INR POC ABG pH 7.550 H POC ABG pCO2 31.6 L POC ABG pO2 Sodium 146 H Potassium Chloride Carbon Dioxide BUN 26 H Creatinine 1.7 H D Glucose 133 H POC Glucose Lactic Acid Calcium Phosphorus Magnesium AST ALT Alkaline Phosphatase Troponin T 0.117 H* C-Reactive Protein Total Protein Albumin 2.5 L LDL Cholesterol Direct 42 L HDL Cholesterol 24 L Urine Creatinine Hepatitis C Antibody Crossmatch Crossmatch [place] 11/11/17 11/12/17 11/12/17 23:20 00:23 00:23 WBC RBC Hgb Hct MCV MCH MCHC RDW Plt Count Lymph % (Auto) [place] % (Auto) Eos % (Auto) Lymph # [place] # Eos # Seg Neutrophils % Seg Neuts % (Manual) Lymphocytes % (Manual) Monocytes % (Manual) Eosinophils % (Manual) Nucleated RBC % Seg Neutrophils # Seg Neutrophils # Man Lymphocytes # (Manual) Monocytes # (Manual) Eosinophils # (Manual) PT 16.7 H INR 1.28 H POC ABG pH POC ABG pCO2 POC ABG pO2 Sodium Potassium Chloride Carbon Dioxide BUN Creatinine Glucose POC Glucose Lactic Acid 3.20 H* Calcium Phosphorus Magnesium AST ALT Alkaline Phosphatase Troponin T C-Reactive Protein 25.70 H Total Protein Albumin LDL Cholesterol Direct HDL Cholesterol Urine Creatinine Hepatitis C Antibody Crossmatch Crossmatch [place] 11/12/17 11/12/17 11/12/17 00:46 01:27 01:27 WBC RBC Hgb Hct MCV MCH MCHC RDW Plt Count Lymph % (Auto) [place] % (Auto) Eos % (Auto) Lymph # [place] # Eos # Seg Neutrophils % Seg Neuts % (Manual) Lymphocytes % (Manual) Monocytes % (Manual) Eosinophils % (Manual) Nucleated RBC % Seg Neutrophils # Seg Neutrophils # Man Lymphocytes # (Manual) Monocytes # (Manual) Eosinophils # (Manual) PT INR POC ABG pH 7.495 H POC ABG pCO2 32.0 L POC ABG pO2 64 L Sodium Potassium Chloride Carbon Dioxide BUN Creatinine Glucose POC Glucose Lactic Acid 3.70 H* Calcium Phosphorus Magnesium AST ALT Alkaline Phosphatase Troponin T 0.096 H C-Reactive Protein Total Protein Albumin LDL Cholesterol Direct HDL Cholesterol Urine Creatinine Hepatitis C Antibody Crossmatch Crossmatch [place] 11/12/17 11/12/17 11/12/17 03:21 04:50 06:27 WBC RBC Hgb Hct MCV MCH MCHC RDW Plt Count Lymph % (Auto) [place] % (Auto) Eos % (Auto) Lymph # [place] # Eos # Seg Neutrophils % Seg Neuts % (Manual) Lymphocytes % (Manual) Monocytes % (Manual) Eosinophils % (Manual) Nucleated RBC % Seg Neutrophils # Seg Neutrophils # Man Lymphocytes # (Manual) Monocytes # (Manual) Eosinophils # (Manual) PT INR POC ABG pH POC ABG pCO2 POC ABG pO2 109 H Sodium Potassium Chloride Carbon Dioxide BUN Creatinine Glucose POC Glucose Lactic Acid 3.80 H* 2.20 H* Calcium Phosphorus Magnesium AST ALT Alkaline Phosphatase Troponin T C-Reactive Protein Total Protein Albumin LDL Cholesterol Direct HDL Cholesterol Urine Creatinine Hepatitis C Antibody Crossmatch Crossmatch [place] 11/12/17 11/12/17 11/12/17 09:24 09:24 09:24 WBC RBC Hgb 10.4 L Hct 33.4 L MCV MCH MCHC RDW Plt Count Lymph % (Auto) [place] % (Auto) Eos % (Auto) Lymph # [place] # Eos # Seg Neutrophils % Seg Neuts % (Manual) Lymphocytes % (Manual) Monocytes % (Manual) Eosinophils % (Manual) Nucleated RBC % Seg Neutrophils # Seg Neutrophils # Man Lymphocytes # (Manual) Monocytes # (Manual) Eosinophils # (Manual) PT INR POC ABG pH POC ABG pCO2 POC ABG pO2 Sodium Potassium Chloride Carbon Dioxide BUN Creatinine Glucose POC Glucose Lactic Acid 2.90 H* Calcium Phosphorus Magnesium AST ALT Alkaline Phosphatase Troponin T 0.091 H C-Reactive Protein Total Protein Albumin LDL Cholesterol Direct HDL Cholesterol Urine Creatinine Hepatitis C Antibody Crossmatch Crossmatch [place] 11/12/17 11/12/17 11/12/17 12:56 20:03 Unknown WBC RBC Hgb Hct MCV MCH MCHC RDW Plt Count Lymph % (Auto) [place] % (Auto) Eos % (Auto) Lymph # [place] # Eos # Seg Neutrophils % Seg Neuts % (Manual) Lymphocytes % (Manual) Monocytes % (Manual) Eosinophils % (Manual) Nucleated RBC % Seg Neutrophils # Seg Neutrophils # Man Lymphocytes # (Manual) Monocytes # (Manual) Eosinophils # (Manual) PT INR POC ABG pH POC ABG pCO2 POC ABG pO2 Sodium Potassium Chloride Carbon Dioxide BUN Creatinine Glucose POC Glucose Lactic Acid 3.60 H* Calcium Phosphorus Magnesium AST ALT Alkaline Phosphatase Troponin T 0.102 H* 0.156 H* D C-Reactive Protein Total Protein Albumin LDL Cholesterol Direct HDL Cholesterol Urine Creatinine Hepatitis C Antibody Crossmatch Crossmatch [place] 11/12/17 11/13/17 11/13/17 Unknown 04:50 04:50 WBC 12.2 H RBC 3.51 L Hgb 9.3 L Hct 30.1 L MCV MCH 26 L MCHC 31 L RDW 18.0 H Plt Count 128 L Lymph % (Auto) 8.6 L [place] % (Auto) 11.1 H Eos % (Auto) Lymph # 1.1 L [place] # 1.4 H Eos # Seg Neutrophils % 80.1 H Seg Neuts % (Manual) Lymphocytes % (Manual) Monocytes % (Manual) Eosinophils % (Manual) Nucleated RBC % Seg Neutrophils # 9.8 H Seg Neutrophils # Man Lymphocytes # (Manual) Monocytes # (Manual) Eosinophils # (Manual) PT INR POC ABG pH POC ABG pCO2 POC ABG pO2 Sodium 149 H Potassium 5.1 H Chloride 114.4 H Carbon Dioxide 18 L BUN 52 H Creatinine 3.3 H D Glucose 129 H POC Glucose Lactic Acid Calcium 7.9 L Phosphorus Magnesium AST ALT Alkaline Phosphatase Troponin T 0.098 H C-Reactive Protein Total Protein Albumin LDL Cholesterol Direct HDL Cholesterol Urine Creatinine Hepatitis C Antibody Crossmatch Crossmatch [place] 11/13/17 11/13/17 11/14/17 04:51 09:34 04:21 WBC RBC Hgb Hct MCV MCH MCHC RDW Plt Count Lymph % (Auto) [place] % (Auto) Eos % (Auto) Lymph # [place] # Eos # Seg Neutrophils % Seg Neuts % (Manual) Lymphocytes % (Manual) Monocytes % (Manual) Eosinophils % (Manual) Nucleated RBC % Seg Neutrophils # Seg Neutrophils # Man Lymphocytes # (Manual) Monocytes # (Manual) Eosinophils # (Manual) PT INR POC ABG pH POC ABG pCO2 30.1 L 29.8 L POC ABG pO2 135 H Sodium Potassium Chloride Carbon Dioxide BUN Creatinine Glucose POC Glucose Lactic Acid 2.10 H* Calcium Phosphorus Magnesium AST ALT Alkaline Phosphatase Troponin T C-Reactive Protein Total Protein Albumin LDL Cholesterol Direct HDL Cholesterol Urine Creatinine Hepatitis C Antibody Crossmatch Crossmatch [place] 11/15/17 11/15/17 11/16/17 04:52 15:50 05:17 WBC RBC Hgb Hct MCV MCH MCHC RDW Plt Count Lymph % (Auto) [place] % (Auto) Eos % (Auto) Lymph # [place] # Eos # Seg Neutrophils % Seg Neuts % (Manual) Lymphocytes % (Manual) Monocytes % (Manual) Eosinophils % (Manual) Nucleated RBC % Seg Neutrophils # Seg Neutrophils # Man Lymphocytes # (Manual) Monocytes # (Manual) Eosinophils # (Manual) PT INR POC ABG pH POC ABG pCO2 29.5 L 31.5 L POC ABG pO2 115 H 122 H Sodium 154 H Potassium Chloride 117.9 H Carbon Dioxide 19 L BUN 87 H Creatinine 4.1 H Glucose POC Glucose Lactic Acid Calcium 8.1 L Phosphorus Magnesium AST ALT Alkaline Phosphatase Troponin T C-Reactive Protein Total Protein Albumin LDL Cholesterol Direct HDL Cholesterol Urine Creatinine Hepatitis C Antibody Crossmatch Crossmatch [place] 11/16/17 11/17/17 11/17/17 16:37 04:07 10:00 WBC 14.7 H RBC 3.23 L Hgb 8.3 L Hct 28.1 L MCV MCH 26 L MCHC 30 L RDW 18.8 H Plt Count Lymph % (Auto) [place] % (Auto) Eos % (Auto) Lymph # [place] # Eos # Seg Neutrophils % Seg Neuts % (Manual) 75 H Lymphocytes % (Manual) 8.0 L Monocytes % (Manual) Eosinophils % (Manual) Nucleated RBC % 1.0 H Seg Neutrophils # Seg Neutrophils # Man 11.0 H Lymphocytes # (Manual) Monocytes # (Manual) 0.9 H Eosinophils # (Manual) PT INR POC ABG pH POC ABG pCO2 POC ABG pO2 Sodium 153 H 155 H Potassium Chloride 117.3 H 119.4 H Carbon Dioxide 19 L 20 L BUN 90 H 89 H Creatinine 3.9 H 3.6 H Glucose 111 H 115 H POC Glucose Lactic Acid Calcium 8.1 L 8.0 L Phosphorus Magnesium AST ALT Alkaline Phosphatase Troponin T C-Reactive Protein Total Protein Albumin LDL Cholesterol Direct HDL Cholesterol Urine Creatinine Hepatitis C Antibody Crossmatch Crossmatch [place] 11/18/17 11/18/17 11/18/17 04:34 04:34 04:34 WBC 15.5 H RBC 3.13 L Hgb 8.1 L Hct 26.3 L MCV MCH 26 L MCHC 31 L RDW 18.6 H Plt Count Lymph % (Auto) [place] % (Auto) Eos % (Auto) Lymph # [place] # Eos # Seg Neutrophils % Seg Neuts % (Manual) 81.0 H Lymphocytes % (Manual) 7.0 L Monocytes % (Manual) Eosinophils % (Manual) Nucleated RBC % 1.0 H Seg Neutrophils # Seg Neutrophils # Man 12.6 H Lymphocytes # (Manual) 1.1 L Monocytes # (Manual) Eosinophils # (Manual) PT 16.7 H INR 1.30 H POC ABG pH POC ABG pCO2 POC ABG pO2 Sodium 155 H Potassium 3.2 L Chloride 121.0 H Carbon Dioxide 20 L BUN 74 H Creatinine 2.9 H Glucose 126 H POC Glucose Lactic Acid Calcium 7.9 L Phosphorus Magnesium AST ALT Alkaline Phosphatase Troponin T C-Reactive Protein Total Protein Albumin LDL Cholesterol Direct HDL Cholesterol Urine Creatinine Hepatitis C Antibody Crossmatch Crossmatch [place] 11/19/17 11/19/17 11/20/17 04:44 04:44 00:38 WBC 19.0 H 22.2 H RBC 3.20 L 3.17 L Hgb 8.4 L 7.9 L Hct 27.9 L 26.4 L MCV 83 L MCH 26 L 25 L MCHC 30 L 30 L RDW 19.1 H 18.9 H Plt Count Lymph % (Auto) [place] % (Auto) Eos % (Auto) Lymph # [place] # Eos # Seg Neutrophils % Seg Neuts % (Manual) 83.0 H Lymphocytes % (Manual) 3.0 L Monocytes % (Manual) 9.0 H Eosinophils % (Manual) Nucleated RBC % Seg Neutrophils # Seg Neutrophils # Man 18.4 H Lymphocytes # (Manual) 0.7 L Monocytes # (Manual) 2.0 H Eosinophils # (Manual) PT INR POC ABG pH POC ABG pCO2 POC ABG pO2 Sodium 152 H Potassium Chloride 117.1 H Carbon Dioxide 17 L BUN 66 H Creatinine 2.8 H Glucose 119 H POC Glucose Lactic Acid Calcium 7.8 L Phosphorus Magnesium 2.70 H AST ALT Alkaline Phosphatase Troponin T C-Reactive Protein Total Protein Albumin LDL Cholesterol Direct HDL Cholesterol Urine Creatinine Hepatitis C Antibody Crossmatch Crossmatch [place] 11/20/17 11/20/17 11/20/17 03:29 04:48 13:38 WBC RBC Hgb Hct MCV MCH MCHC RDW Plt Count Lymph % (Auto) [place] % (Auto) Eos % (Auto) Lymph # [place] # Eos # Seg Neutrophils % Seg Neuts % (Manual) Lymphocytes % (Manual) Monocytes % (Manual) Eosinophils % (Manual) Nucleated RBC % Seg Neutrophils # Seg Neutrophils # Man Lymphocytes # (Manual) Monocytes # (Manual) Eosinophils # (Manual) PT INR POC ABG pH POC ABG pCO2 29.4 L POC ABG pO2 Sodium 148 H Potassium 3.4 L Chloride 113.7 H Carbon Dioxide 18 L BUN 59 H Creatinine 2.7 H Glucose 113 H POC Glucose 128 H Lactic Acid Calcium 7.8 L Phosphorus Magnesium AST ALT Alkaline Phosphatase Troponin T C-Reactive Protein Total Protein Albumin LDL Cholesterol Direct HDL Cholesterol Urine Creatinine Hepatitis C Antibody Crossmatch Crossmatch [place] 11/20/17 11/20/17 11/21/17 17:38 23:40 00:13 WBC RBC Hgb 8.4 L Hct 28.0 L MCV MCH MCHC RDW Plt Count Lymph % (Auto) [place] % (Auto) Eos % (Auto) Lymph # [place] # Eos # Seg Neutrophils % Seg Neuts % (Manual) Lymphocytes % (Manual) Monocytes % (Manual) Eosinophils % (Manual) Nucleated RBC % Seg Neutrophils # Seg Neutrophils # Man Lymphocytes # (Manual) Monocytes # (Manual) Eosinophils # (Manual) PT INR POC ABG pH POC ABG pCO2 POC ABG pO2 Sodium Potassium Chloride Carbon Dioxide BUN Creatinine Glucose POC Glucose 115 H 145 H Lactic Acid Calcium Phosphorus Magnesium AST ALT Alkaline Phosphatase Troponin T C-Reactive Protein Total Protein Albumin LDL Cholesterol Direct HDL Cholesterol Urine Creatinine Hepatitis C Antibody Crossmatch Crossmatch [place] 11/21/17 11/21/17 11/21/17 04:30 04:30 04:58 WBC 21.0 H RBC Hgb 9.6 L Hct 32.7 L MCV MCH 25 L MCHC 29 L RDW 19.7 H Plt Count 746 H Lymph % (Auto) [place] % (Auto) Eos % (Auto) Lymph # [place] # Eos # Seg Neutrophils % Seg Neuts % (Manual) Lymphocytes % (Manual) Monocytes % (Manual) Eosinophils % (Manual) Nucleated RBC % Seg Neutrophils # Seg Neutrophils # Man Lymphocytes # (Manual) Monocytes # (Manual) Eosinophils # (Manual) PT INR POC ABG pH POC ABG pCO2 POC ABG pO2 Sodium Potassium Chloride 109.4 H Carbon Dioxide 14 L BUN 59 H Creatinine 3.0 H Glucose 137 H POC Glucose 132 H Lactic Acid Calcium 7.6 L Phosphorus Magnesium AST ALT Alkaline Phosphatase Troponin T C-Reactive Protein Total Protein Albumin LDL Cholesterol Direct HDL Cholesterol Urine Creatinine Hepatitis C Antibody Crossmatch Crossmatch [place] 11/21/17 11/21/17 11/21/17 06:30 13:43 14:17 WBC 38.2 H RBC Hgb 9.0 L Hct 32.3 L MCV MCH 25 L MCHC 28 L RDW 20.0 H Plt Count 766 H Lymph % (Auto) [place] % (Auto) Eos % (Auto) Lymph # [place] # Eos # Seg Neutrophils % Seg Neuts % (Manual) 85.0 H Lymphocytes % (Manual) 1.0 L Monocytes % (Manual) Eosinophils % (Manual) Nucleated RBC % 2.0 H Seg Neutrophils # Seg Neutrophils # Man 32.5 H Lymphocytes # (Manual) 0.4 L Monocytes # (Manual) 2.3 H Eosinophils # (Manual) PT INR POC ABG pH POC ABG pCO2 18.6 L POC ABG pO2 121 H Sodium 146 H Potassium Chloride 110.9 H Carbon Dioxide 11 L BUN 62 H Creatinine 4.0 H Glucose 64 L POC Glucose Lactic Acid Calcium 7.6 L Phosphorus Magnesium AST ALT Alkaline Phosphatase Troponin T C-Reactive Protein Total Protein Albumin LDL Cholesterol Direct HDL Cholesterol Urine Creatinine Hepatitis C Antibody Crossmatch Crossmatch [place] 11/21/17 11/21/17 11/22/17 14:17 19:09 00:05 WBC RBC Hgb Hct MCV MCH MCHC RDW Plt Count Lymph % (Auto) [place] % (Auto) Eos % (Auto) Lymph # [place] # Eos # Seg Neutrophils % Seg Neuts % (Manual) Lymphocytes % (Manual) Monocytes % (Manual) Eosinophils % (Manual) Nucleated RBC % Seg Neutrophils # Seg Neutrophils # Man Lymphocytes # (Manual) Monocytes # (Manual) Eosinophils # (Manual) PT INR POC ABG pH POC ABG pCO2 20.0 L POC ABG pO2 Sodium Potassium Chloride Carbon Dioxide BUN Creatinine Glucose POC Glucose 127 H Lactic Acid 7.70 H* Calcium Phosphorus Magnesium AST ALT Alkaline Phosphatase Troponin T C-Reactive Protein Total Protein Albumin LDL Cholesterol Direct HDL Cholesterol Urine Creatinine Hepatitis C Antibody Crossmatch Crossmatch [place] 11/22/17 11/22/17 11/22/17 03:53 06:00 07:25 WBC RBC Hgb Hct MCV MCH MCHC RDW Plt Count Lymph % (Auto) [place] % (Auto) Eos % (Auto) Lymph # [place] # Eos # Seg Neutrophils % Seg Neuts % (Manual) Lymphocytes % (Manual) Monocytes % (Manual) Eosinophils % (Manual) Nucleated RBC % Seg Neutrophils # Seg Neutrophils # Man Lymphocytes # (Manual) Monocytes # (Manual) Eosinophils # (Manual) PT INR POC ABG pH POC ABG pCO2 22.2 L POC ABG pO2 Sodium 147 H Potassium Chloride 111.9 H Carbon Dioxide 16 L BUN 72 H Creatinine 5.1 H Glucose 181 H POC Glucose 180 H Lactic Acid Calcium 7.1 L Phosphorus Magnesium AST ALT Alkaline Phosphatase Troponin T C-Reactive Protein Total Protein Albumin LDL Cholesterol Direct HDL Cholesterol Urine Creatinine Hepatitis C Antibody Crossmatch Crossmatch [place] 11/22/17 11/22/17 11/22/17 07:25 07:25 12:05 WBC 31.4 H RBC 3.22 L Hgb 8.0 L Hct 26.7 L MCV 83 L MCH 25 L MCHC 30 L RDW 19.4 H Plt Count 602 H Lymph % (Auto) [place] % (Auto) Eos % (Auto) Lymph # [place] # Eos # Seg Neutrophils % Seg Neuts % (Manual) Lymphocytes % (Manual) Monocytes % (Manual) Eosinophils % (Manual) Nucleated RBC % Seg Neutrophils # Seg Neutrophils # Man Lymphocytes # (Manual) Monocytes # (Manual) Eosinophils # (Manual) PT INR POC ABG pH POC ABG pCO2 POC ABG pO2 Sodium Potassium Chloride Carbon Dioxide BUN Creatinine Glucose POC Glucose 182 H Lactic Acid 5.00 H* Calcium Phosphorus Magnesium AST ALT Alkaline Phosphatase Troponin T C-Reactive Protein Total Protein Albumin LDL Cholesterol Direct HDL Cholesterol Urine Creatinine Hepatitis C Antibody Crossmatch Crossmatch [place] 11/22/17 11/23/17 11/23/17 19:45 01:28 04:56 WBC RBC Hgb Hct MCV MCH MCHC RDW Plt Count Lymph % (Auto) [place] % (Auto) Eos % (Auto) Lymph # [place] # Eos # Seg Neutrophils % Seg Neuts % (Manual) Lymphocytes % (Manual) Monocytes % (Manual) Eosinophils % (Manual) Nucleated RBC % Seg Neutrophils # Seg Neutrophils # Man Lymphocytes # (Manual) Monocytes # (Manual) Eosinophils # (Manual) PT INR POC ABG pH 7.505 H POC ABG pCO2 26.3 L POC ABG pO2 Sodium Potassium Chloride Carbon Dioxide BUN Creatinine Glucose POC Glucose 165 H Lactic Acid Calcium Phosphorus Magnesium AST ALT Alkaline Phosphatase Troponin T C-Reactive Protein Total Protein Albumin LDL Cholesterol Direct HDL Cholesterol Urine Creatinine Hepatitis C Antibody Reactive A Crossmatch Crossmatch [place] 11/23/17 11/23/17 11/23/17 07:05 12:32 17:53 WBC RBC Hgb Hct MCV MCH MCHC RDW Plt Count Lymph % (Auto) [place] % (Auto) Eos % (Auto) Lymph # [place] # Eos # Seg Neutrophils % Seg Neuts % (Manual) Lymphocytes % (Manual) Monocytes % (Manual) Eosinophils % (Manual) Nucleated RBC % Seg Neutrophils # Seg Neutrophils # Man Lymphocytes # (Manual) Monocytes # (Manual) Eosinophils # (Manual) PT INR POC ABG pH POC ABG pCO2 POC ABG pO2 Sodium Potassium Chloride Carbon Dioxide 18 L BUN 61 H Creatinine 4.2 H Glucose 153 H POC Glucose 138 H 173 H Lactic Acid Calcium 7.5 L Phosphorus Magnesium AST ALT Alkaline Phosphatase Troponin T C-Reactive Protein Total Protein Albumin LDL Cholesterol Direct HDL Cholesterol Urine Creatinine Hepatitis C Antibody Crossmatch Crossmatch [place] 11/23/17 11/24/17 11/24/17 23:41 05:42 05:42 WBC 21.5 H RBC 2.48 L Hgb 6.2 L Hct 20.3 L D MCV 82 L MCH 25 L MCHC 31 L RDW 18.9 H Plt Count Lymph % (Auto) [place] % (Auto) Eos % (Auto) Lymph # [place] # Eos # Seg Neutrophils % Seg Neuts % (Manual) 94.0 H Lymphocytes % (Manual) 3.0 L Monocytes % (Manual) Eosinophils % (Manual) Nucleated RBC % Seg Neutrophils # Seg Neutrophils # Man 20.2 H Lymphocytes # (Manual) 0.6 L Monocytes # (Manual) Eosinophils # (Manual) PT INR POC ABG pH POC ABG pCO2 POC ABG pO2 Sodium 149 H Potassium 2.8 L* D Chloride 113.9 H Carbon Dioxide 19 L BUN 31 H Creatinine 2.3 H Glucose 103 H POC Glucose 133 H Lactic Acid Calcium 5.3 L* D Phosphorus Magnesium 1.30 L AST ALT Alkaline Phosphatase Troponin T C-Reactive Protein Total Protein Albumin LDL Cholesterol Direct HDL Cholesterol Urine Creatinine Hepatitis C Antibody Crossmatch Crossmatch [place] 11/24/17 11/24/17 11/24/17 05:42 08:27 08:27 WBC RBC Hgb Hct MCV MCH MCHC RDW Plt Count Lymph % (Auto) [place] % (Auto) Eos % (Auto) Lymph # [place] # Eos # Seg Neutrophils % Seg Neuts % (Manual) Lymphocytes % (Manual) Monocytes % (Manual) Eosinophils % (Manual) Nucleated RBC % Seg Neutrophils # Seg Neutrophils # Man Lymphocytes # (Manual) Monocytes # (Manual) Eosinophils # (Manual) PT INR POC ABG pH POC ABG pCO2 POC ABG pO2 Sodium Potassium Chloride Carbon Dioxide BUN Creatinine Glucose POC Glucose Lactic Acid 5.40 H* 5.20 H* Calcium Phosphorus Magnesium AST ALT Alkaline Phosphatase Troponin T C-Reactive Protein Total Protein Albumin LDL Cholesterol Direct HDL Cholesterol Urine Creatinine Hepatitis C Antibody Crossmatch See Detail Crossmatch [place]armed 11/24/17 11/24/17 11/24/17 12:13 17:22 21:53 WBC 23.0 H RBC 3.32 L Hgb 8.8 L Hct 27.1 L D MCV 82 L MCH 26 L MCHC RDW 17.3 H Plt Count Lymph % (Auto) [place] % (Auto) Eos % (Auto) Lymph # [place] # Eos # Seg Neutrophils % Seg Neuts % (Manual) Lymphocytes % (Manual) Monocytes % (Manual) Eosinophils % (Manual) Nucleated RBC % Seg Neutrophils # Seg Neutrophils # Man Lymphocytes # (Manual) Monocytes # (Manual) Eosinophils # (Manual) PT INR POC ABG pH POC ABG pCO2 POC ABG pO2 Sodium Potassium Chloride Carbon Dioxide BUN Creatinine Glucose POC Glucose 138 H 180 H Lactic Acid Calcium Phosphorus Magnesium AST ALT Alkaline Phosphatase Troponin T C-Reactive Protein Total Protein Albumin LDL Cholesterol Direct HDL Cholesterol Urine Creatinine Hepatitis C Antibody Crossmatch Crossmatch [place] 11/24/17 11/24/17 11/25/17 21:53 23:28 04:19 WBC RBC Hgb Hct MCV MCH MCHC RDW Plt Count Lymph % (Auto) [place] % (Auto) Eos % (Auto) Lymph # [place] # Eos # Seg Neutrophils % Seg Neuts % (Manual) Lymphocytes % (Manual) Monocytes % (Manual) Eosinophils % (Manual) Nucleated RBC % Seg Neutrophils # Seg Neutrophils # Man Lymphocytes # (Manual) Monocytes # (Manual) Eosinophils # (Manual) PT INR POC ABG pH POC ABG pCO2 POC ABG pO2 Sodium Potassium Chloride 96.3 L Carbon Dioxide BUN 28 H 31 H Creatinine 2.3 H 2.6 H Glucose 125 H 101 H POC Glucose 111 H Lactic Acid Calcium 7.5 L D 7.4 L Phosphorus Magnesium AST 170 H ALT 179 H Alkaline Phosphatase 175 H Troponin T C-Reactive Protein Total Protein 5.5 L Albumin 1.8 L LDL Cholesterol Direct HDL Cholesterol Urine Creatinine Hepatitis C Antibody Crossmatch Crossmatch [place] 11/25/17 11/25/17 11/26/17 04:19 04:19 06:29 WBC 22.5 H RBC 3.48 L Hgb 9.1 L Hct 28.3 L MCV 81 L MCH 26 L MCHC RDW 17.4 H Plt Count Lymph % (Auto) [place] % (Auto) Eos % (Auto) Lymph # [place] # Eos # Seg Neutrophils % Seg Neuts % (Manual) Lymphocytes % (Manual) Monocytes % (Manual) Eosinophils % (Manual) Nucleated RBC % Seg Neutrophils # Seg Neutrophils # Man Lymphocytes # (Manual) Monocytes # (Manual) Eosinophils # (Manual) PT 23.6 H INR 1.96 H POC ABG pH POC ABG pCO2 POC ABG pO2 Sodium Potassium Chloride Carbon Dioxide BUN 31 H Creatinine 2.6 H Glucose 101 H POC Glucose Lactic Acid Calcium 7.5 L Phosphorus Magnesium AST ALT Alkaline Phosphatase Troponin T C-Reactive Protein Total Protein Albumin LDL Cholesterol Direct HDL Cholesterol Urine Creatinine Hepatitis C Antibody Crossmatch [facility] 11/26/17 11/27/17 11/27/17 06:34 04:06 04:06 WBC 11.3 H RBC 3.13 L Hgb 8.4 L Hct 25.8 L MCV 82 L MCH 27 L MCHC RDW 17.7 H Plt Count Lymph % (Auto) 7.4 L [place] % (Auto) Eos % (Auto) Lymph # 0.8 L [place] # Eos # Seg Neutrophils % 83.7 H Seg Neuts % (Manual) Lymphocytes % (Manual) Monocytes % (Manual) Eosinophils % (Manual) Nucleated RBC % Seg Neutrophils # 9.5 H Seg Neutrophils # Man Lymphocytes # (Manual) Monocytes # (Manual) Eosinophils # (Manual) PT INR POC ABG pH POC ABG pCO2 POC ABG pO2 Sodium Potassium Chloride 97.9 L Carbon Dioxide BUN 43 H 29 H Creatinine 3.5 H 2.9 H Glucose POC Glucose Lactic Acid Calcium 7.5 L 8.1 L Phosphorus Magnesium AST ALT Alkaline Phosphatase Troponin T C-Reactive Protein Total Protein Albumin LDL Cholesterol Direct HDL Cholesterol Urine Creatinine Hepatitis C Antibody Crossmatch [facility] 11/27/17 11/28/17 11/28/17 18:11 00:16 03:50 WBC RBC Hgb Hct MCV MCH MCHC RDW Plt Count Lymph % (Auto) [place] % (Auto) Eos % (Auto) Lymph # [place] # Eos # Seg Neutrophils % Seg Neuts % (Manual) Lymphocytes % (Manual) Monocytes % (Manual) Eosinophils % (Manual) Nucleated RBC % Seg Neutrophils # Seg Neutrophils # Man Lymphocytes # (Manual) Monocytes # (Manual) Eosinophils # (Manual) PT INR POC ABG pH POC ABG pCO2 POC ABG pO2 Sodium Potassium Chloride Carbon Dioxide BUN 39 H Creatinine 4.1 H Glucose 108 H POC Glucose 110 H 124 H Lactic Acid Calcium 7.9 L Phosphorus Magnesium AST ALT Alkaline Phosphatase Troponin T C-Reactive Protein Total Protein Albumin LDL Cholesterol Direct HDL Cholesterol Urine Creatinine Hepatitis C Antibody Crossmatch [facility] 11/28/17 11/28/17 11/28/17 05:03 11:36 17:42 WBC RBC Hgb Hct MCV MCH MCHC RDW Plt Count Lymph % (Auto) [place] % (Auto) Eos % (Auto) Lymph # [place] # Eos # Seg Neutrophils % Seg Neuts % (Manual) Lymphocytes % (Manual) Monocytes % (Manual) Eosinophils % (Manual) Nucleated RBC % Seg Neutrophils # Seg Neutrophils # Man Lymphocytes # (Manual) Monocytes # (Manual) Eosinophils # (Manual) PT INR POC ABG pH POC ABG pCO2 POC ABG pO2 Sodium Potassium Chloride Carbon Dioxide BUN Creatinine Glucose POC Glucose 134 H 114 H 119 H Lactic Acid Calcium Phosphorus Magnesium AST ALT Alkaline Phosphatase Troponin T C-Reactive Protein Total Protein Albumin LDL Cholesterol Direct HDL Cholesterol Urine Creatinine Hepatitis C Antibody Crossmatch [facility] 11/29/17 11/29/17 11/29/17 00:22 05:25 05:25 WBC 12.3 H RBC 3.34 L Hgb 8.6 L Hct 27.3 L MCV 82 L MCH 26 L MCHC RDW 18.5 H Plt Count Lymph % (Auto) 3.7 L [place] % (Auto) 7.7 H Eos % (Auto) Lymph # 0.5 L [place] # 1.0 H Eos # Seg Neutrophils % 86.5 H Seg Neuts % (Manual) Lymphocytes % (Manual) Monocytes % (Manual) Eosinophils % (Manual) Nucleated RBC % Seg Neutrophils # 10.7 H Seg Neutrophils # Man Lymphocytes # (Manual) Monocytes # (Manual) Eosinophils # (Manual) PT INR POC ABG pH POC ABG pCO2 POC ABG pO2 Sodium Potassium Chloride Carbon Dioxide BUN 29 H Creatinine 3.5 H Glucose 109 H POC Glucose 137 H Lactic Acid Calcium 7.8 L Phosphorus Magnesium AST ALT Alkaline Phosphatase Troponin T C-Reactive Protein Total Protein Albumin LDL Cholesterol Direct HDL Cholesterol Urine Creatinine Hepatitis C Antibody Crossmatch [facility] 11/29/17 11/30/17 11/30/17 05:26 00:26 04:17 WBC RBC Hgb Hct MCV MCH MCHC RDW Plt Count Lymph % (Auto) [place] % (Auto) Eos % (Auto) Lymph # [place] # Eos # Seg Neutrophils % Seg Neuts % (Manual) Lymphocytes % (Manual) Monocytes % (Manual) Eosinophils % (Manual) Nucleated RBC % Seg Neutrophils # Seg Neutrophils # Man Lymphocytes # (Manual) Monocytes # (Manual) Eosinophils # (Manual) PT INR POC ABG pH POC ABG pCO2 POC ABG pO2 Sodium Potassium Chloride Carbon Dioxide BUN 38 H Creatinine 4.3 H Glucose 109 H POC Glucose 129 H 152 H Lactic Acid Calcium 7.8 L Phosphorus Magnesium AST ALT Alkaline Phosphatase Troponin T C-Reactive Protein Total Protein Albumin LDL Cholesterol Direct HDL Cholesterol Urine Creatinine Hepatitis C Antibody Crossmatch [facility] 11/30/17 11/30/17 11/30/17 12:17 16:23 23:35 WBC RBC Hgb Hct MCV MCH MCHC RDW Plt Count Lymph % (Auto) [place] % (Auto) Eos % (Auto) Lymph # [place] # Eos # Seg Neutrophils % Seg Neuts % (Manual) Lymphocytes % (Manual) Monocytes % (Manual) Eosinophils % (Manual) Nucleated RBC % Seg Neutrophils # Seg Neutrophils # Man Lymphocytes # (Manual) Monocytes # (Manual) Eosinophils # (Manual) PT INR POC ABG pH POC ABG pCO2 POC ABG pO2 Sodium Potassium Chloride Carbon Dioxide BUN Creatinine Glucose POC Glucose 170 H 114 H 122 H Lactic Acid Calcium Phosphorus Magnesium AST ALT Alkaline Phosphatase Troponin T C-Reactive Protein Total Protein Albumin LDL Cholesterol Direct HDL Cholesterol Urine Creatinine Hepatitis C Antibody Crossmatch [facility] 12/01/17 12/01/17 12/01/17 04:09 04:09 12:17 WBC 14.1 H RBC 3.32 L Hgb 8.6 L Hct 27.0 L MCV 81 L MCH 26 L MCHC RDW 18.7 H Plt Count Lymph % (Auto) 5.5 L [place] % (Auto) 9.7 H Eos % (Auto) Lymph # 0.8 L [place] # 1.4 H Eos # Seg Neutrophils % 82.9 H Seg Neuts % (Manual) Lymphocytes % (Manual) Monocytes % (Manual) Eosinophils % (Manual) Nucleated RBC % Seg Neutrophils # 11.7 H Seg Neutrophils # Man Lymphocytes # (Manual) Monocytes # (Manual) Eosinophils # (Manual) PT INR POC ABG pH POC ABG pCO2 POC ABG pO2 Sodium Potassium 3.4 L Chloride Carbon Dioxide BUN 21 H Creatinine 3.0 H Glucose 108 H POC Glucose 126 H Lactic Acid Calcium 8.0 L Phosphorus Magnesium AST ALT Alkaline Phosphatase Troponin T C-Reactive Protein Total Protein Albumin LDL Cholesterol Direct HDL Cholesterol Urine Creatinine Hepatitis C Antibody Crossmatch [facility] 12/02/17 12/03/17 12/03/17 23:46 02:52 05:54 WBC 17.2 H RBC 3.21 L Hgb 8.5 L Hct 25.8 L MCV 80 L MCH 26 L MCHC RDW 18.4 H Plt Count 128 L Lymph % (Auto) [place] % (Auto) Eos % (Auto) Lymph # [place] # Eos # Seg Neutrophils % Seg Neuts % (Manual) Lymphocytes % (Manual) Monocytes % (Manual) Eosinophils % (Manual) Nucleated RBC % Seg Neutrophils # Seg Neutrophils # Man Lymphocytes # (Manual) Monocytes # (Manual) Eosinophils # (Manual) PT INR POC ABG pH POC ABG pCO2 POC ABG pO2 Sodium Potassium Chloride Carbon Dioxide BUN Creatinine Glucose POC Glucose 125 H 107 H Lactic Acid Calcium Phosphorus Magnesium AST ALT Alkaline Phosphatase Troponin T C-Reactive Protein Total Protein Albumin LDL Cholesterol Direct HDL Cholesterol Urine Creatinine Hepatitis C Antibody Crossmatch [facility] 12/03/17 12/03/17 12/04/17 12:05 Unknown 12:26 WBC RBC Hgb Hct MCV MCH MCHC RDW Plt Count Lymph % (Auto) [place] % (Auto) Eos % (Auto) Lymph # [place] # Eos # Seg Neutrophils % Seg Neuts % (Manual) Lymphocytes % (Manual) Monocytes % (Manual) Eosinophils % (Manual) Nucleated RBC % Seg Neutrophils # Seg Neutrophils # Man Lymphocytes # (Manual) Monocytes # (Manual) Eosinophils # (Manual) PT INR POC ABG pH POC ABG pCO2 POC ABG pO2 Sodium Potassium Chloride Carbon Dioxide BUN 21 H Creatinine 2.8 H Glucose 113 H POC Glucose 106 H 119 H Lactic Acid Calcium Phosphorus Magnesium AST ALT Alkaline Phosphatase Troponin T C-Reactive Protein Total Protein Albumin LDL Cholesterol Direct HDL Cholesterol Urine Creatinine Hepatitis C Antibody Crossmatch [facility] 12/04/17 12/05/17 12/05/17 17:57 00:52 04:05 WBC RBC 2.96 L Hgb 7.7 L Hct 24.2 L MCV 82 L MCH 26 L MCHC RDW 18.8 H Plt Count 105 L Lymph % (Auto) 10.6 L [place] % (Auto) 12.1 H Eos % (Auto) 5.2 H Lymph # 1.1 L [place] # 1.3 H Eos # 0.5 H Seg Neutrophils % 71.3 H Seg Neuts % (Manual) Lymphocytes % (Manual) Monocytes % (Manual) Eosinophils % (Manual) Nucleated RBC % Seg Neutrophils # Seg Neutrophils # Man Lymphocytes # (Manual) Monocytes # (Manual) Eosinophils # (Manual) PT INR POC ABG pH POC ABG pCO2 POC ABG pO2 Sodium Potassium Chloride Carbon Dioxide BUN Creatinine Glucose POC Glucose 140 H 117 H Lactic Acid Calcium Phosphorus Magnesium AST ALT Alkaline Phosphatase Troponin T C-Reactive Protein Total Protein Albumin LDL Cholesterol Direct HDL Cholesterol Urine Creatinine Hepatitis C Antibody Crossmatch [facility] 12/05/17 12/05/17 12/06/17 04:05 22:50 08:18 WBC RBC 2.80 L Hgb 7.4 L Hct 23.0 L MCV 82 L MCH 27 L MCHC RDW 19.5 H Plt Count 125 L Lymph % (Auto) [place] % (Auto) Eos % (Auto) Lymph # [place] # Eos # Seg Neutrophils % Seg Neuts % (Manual) Lymphocytes % (Manual) Monocytes % (Manual) Eosinophils % (Manual) Nucleated RBC % Seg Neutrophils # Seg Neutrophils # Man Lymphocytes # (Manual) Monocytes # (Manual) Eosinophils # (Manual) PT INR POC ABG pH POC ABG pCO2 POC ABG pO2 Sodium Potassium Chloride 107.4 H Carbon Dioxide BUN Creatinine 2.5 H Glucose POC Glucose 112 H Lactic Acid Calcium 8.3 L Phosphorus Magnesium AST ALT Alkaline Phosphatase Troponin T C-Reactive Protein Total Protein Albumin LDL Cholesterol Direct HDL Cholesterol Urine Creatinine Hepatitis C Antibody Crossmatch [facility] 12/06/17 12/06/17 12/06/17 08:18 12:01 23:58 WBC RBC Hgb Hct MCV MCH MCHC RDW Plt Count Lymph % (Auto) [place] % (Auto) Eos % (Auto) Lymph # [place] # Eos # Seg Neutrophils % Seg Neuts % (Manual) Lymphocytes % (Manual) Monocytes % (Manual) Eosinophils % (Manual) Nucleated RBC % Seg Neutrophils # Seg Neutrophils # Man Lymphocytes # (Manual) Monocytes # (Manual) Eosinophils # (Manual) PT INR POC ABG pH POC ABG pCO2 POC ABG pO2 Sodium Potassium Chloride 108.4 H Carbon Dioxide BUN 28 H Creatinine 3.7 H Glucose 103 H POC Glucose 106 H 108 H Lactic Acid Calcium 8.0 L Phosphorus Magnesium AST ALT Alkaline Phosphatase Troponin T C-Reactive Protein Total Protein Albumin LDL Cholesterol Direct HDL Cholesterol Urine Creatinine Hepatitis C Antibody Crossmatch [facility] 12/07/17 12/07/17 12/07/17 05:47 05:47 18:03 WBC RBC 2.79 L Hgb 7.3 L Hct 22.8 L MCV 82 L MCH 26 L MCHC RDW 19.1 H Plt Count 101 L Lymph % (Auto) [place] % (Auto) Eos % (Auto) Lymph # [place] # Eos # Seg Neutrophils % Seg Neuts % (Manual) 72.0 H Lymphocytes % (Manual) 13.0 L Monocytes % (Manual) Eosinophils % (Manual) 9.0 H Nucleated RBC % Seg Neutrophils # Seg Neutrophils # Man Lymphocytes # (Manual) 1.1 L Monocytes # (Manual) Eosinophils # (Manual) 0.8 H PT INR POC ABG pH POC ABG pCO2 POC ABG pO2 Sodium 146 H Potassium Chloride 109.8 H Carbon Dioxide BUN 36 H Creatinine 4.0 H Glucose POC Glucose 143 H Lactic Acid Calcium 8.0 L Phosphorus Magnesium AST ALT Alkaline Phosphatase Troponin T C-Reactive Protein Total Protein Albumin LDL Cholesterol Direct HDL Cholesterol Urine Creatinine Hepatitis C Antibody Crossmatch [facility] 12/07/17 12/08/17 12/08/17 23:33 05:10 05:10 WBC RBC 2.91 L Hgb 7.5 L Hct 24.4 L MCV MCH 26 L MCHC 31 L RDW 19.7 H Plt Count 109 L Lymph % (Auto) [place] % (Auto) Eos % (Auto) Lymph # [place] # Eos # Seg Neutrophils % Seg Neuts % (Manual) Lymphocytes % (Manual) 11.0 L Monocytes % (Manual) Eosinophils % (Manual) 12.0 H Nucleated RBC % Seg Neutrophils # Seg Neutrophils # Man Lymphocytes # (Manual) 0.7 L Monocytes # (Manual) Eosinophils # (Manual) 0.7 H PT INR POC ABG pH POC ABG pCO2 POC ABG pO2 Sodium 147 H Potassium Chloride 110.4 H Carbon Dioxide BUN Creatinine 2.8 H Glucose POC Glucose 107 H Lactic Acid Calcium 7.8 L Phosphorus Magnesium AST ALT Alkaline Phosphatase Troponin T C-Reactive Protein Total Protein Albumin LDL Cholesterol Direct HDL Cholesterol Urine Creatinine Hepatitis C Antibody Crossmatch [facility] 12/09/17 12/09/17 12/09/17 04:18 04:18 12:16 WBC RBC Hgb 7.2 L Hct 23.2 L MCV MCH MCHC RDW Plt Count Lymph % (Auto) [place] % (Auto) Eos % (Auto) Lymph # [place] # Eos # Seg Neutrophils % Seg Neuts % (Manual) Lymphocytes % (Manual) Monocytes % (Manual) Eosinophils % (Manual) Nucleated RBC % Seg Neutrophils # Seg Neutrophils # Man Lymphocytes # (Manual) Monocytes # (Manual) Eosinophils # (Manual) PT INR POC ABG pH POC ABG pCO2 POC ABG pO2 Sodium 150 H Potassium Chloride 114.5 H Carbon Dioxide BUN 25 H Creatinine 3.3 H Glucose POC Glucose 142 H Lactic Acid Calcium 7.7 L Phosphorus Magnesium AST ALT Alkaline Phosphatase Troponin T C-Reactive Protein Total Protein Albumin LDL Cholesterol Direct HDL Cholesterol Urine Creatinine Hepatitis C Antibody Crossmatch [facility] 12/10/17 12/10/17 12/11/17 05:14 05:14 12:05 WBC RBC 2.81 L Hgb 7.4 L Hct 23.9 L MCV MCH 26 L MCHC 31 L RDW 19.1 H Plt Count 128 L Lymph % (Auto) [place] % (Auto) Eos % (Auto) Lymph # [place] # Eos # Seg Neutrophils % Seg Neuts % (Manual) 78.0 H Lymphocytes % (Manual) 8.0 L Monocytes % (Manual) Eosinophils % (Manual) 5.0 H Nucleated RBC % Seg Neutrophils # Seg Neutrophils # Man Lymphocytes # (Manual) 0.6 L Monocytes # (Manual) Eosinophils # (Manual) PT INR POC ABG pH POC ABG pCO2 POC ABG pO2 Sodium Potassium Chloride Carbon Dioxide BUN Creatinine 2.2 H Glucose POC Glucose 127 H Lactic Acid Calcium 7.8 L Phosphorus Magnesium AST ALT Alkaline Phosphatase Troponin T C-Reactive Protein Total Protein Albumin LDL Cholesterol Direct HDL Cholesterol Urine Creatinine Hepatitis C Antibody Crossmatch [facility] 0912/11/17 12/11/17 15:26 18:36 23:40 WBC RBC Hgb Hct MCV MCH MCHC RDW Plt Count Lymph % (Auto) [place] % (Auto) Eos % (Auto) Lymph # [place] # Eos # Seg Neutrophils % Seg Neuts % (Manual) Lymphocytes % (Manual) Monocytes % (Manual) Eosinophils % (Manual) Nucleated RBC % Seg Neutrophils # Seg Neutrophils # Man Lymphocytes # (Manual) Monocytes # (Manual) Eosinophils # (Manual) PT INR POC ABG pH POC ABG pCO2 POC ABG pO2 Sodium Potassium 3.3 L Chloride Carbon Dioxide BUN Creatinine 1.6 H Glucose POC Glucose 106 H 110 H Lactic Acid Calcium 7.6 L Phosphorus Magnesium AST ALT Alkaline Phosphatase Troponin T C-Reactive Protein Total Protein Albumin LDL Cholesterol Direct HDL Cholesterol Urine Creatinine Hepatitis C Antibody Crossmatch [facility] 12/12/17 12/12/17 12/12/17 05:10 05:41 05:41 WBC RBC 3.17 L Hgb 8.1 L Hct 25.7 L MCV 81 L MCH 25 L MCHC 31 L RDW 19.2 H Plt Count Lymph % (Auto) [place] % (Auto) Eos % (Auto) Lymph # [place] # Eos # Seg Neutrophils % Seg Neuts % (Manual) 74.0 H Lymphocytes % (Manual) 6.0 L Monocytes % (Manual) Eosinophils % (Manual) 9.0 H Nucleated RBC % Seg Neutrophils # Seg Neutrophils # Man Lymphocytes # (Manual) 0.6 L Monocytes # (Manual) Eosinophils # (Manual) 0.9 H PT INR POC ABG pH POC ABG pCO2 POC ABG pO2 Sodium Potassium 3.5 L Chloride Carbon Dioxide BUN Creatinine 2.3 H Glucose 113 H POC Glucose 112 H Lactic Acid Calcium 7.5 L Phosphorus Magnesium AST ALT Alkaline Phosphatase Troponin T C-Reactive Protein Total Protein Albumin LDL Cholesterol Direct HDL Cholesterol Urine Creatinine Hepatitis C Antibody Crossmatch [facility] 12/13/17 12/13/17 12/13/17 06:14 12:00 17:37 WBC RBC Hgb Hct MCV MCH MCHC RDW Plt Count Lymph % (Auto) [place] % (Auto) Eos % (Auto) Lymph # [place] # Eos # Seg Neutrophils % Seg Neuts % (Manual) Lymphocytes % (Manual) Monocytes % (Manual) Eosinophils % (Manual) Nucleated RBC % Seg Neutrophils # Seg Neutrophils # Man Lymphocytes # (Manual) Monocytes # (Manual) Eosinophils # (Manual) PT INR POC ABG pH POC ABG pCO2 POC ABG pO2 Sodium Potassium Chloride Carbon Dioxide BUN Creatinine Glucose POC Glucose 130 H 133 H 136 H Lactic Acid Calcium Phosphorus Magnesium AST ALT Alkaline Phosphatase Troponin T C-Reactive Protein Total Protein Albumin LDL Cholesterol Direct HDL Cholesterol Urine Creatinine Hepatitis C Antibody Crossmatch [facility] 12/13/17 12/14/17 12/14/17 23:39 05:11 05:11 WBC RBC Hgb Hct MCV MCH MCHC RDW Plt Count Lymph % (Auto) [place] % (Auto) Eos % (Auto) Lymph # [place] # Eos # Seg Neutrophils % Seg Neuts % (Manual) Lymphocytes % (Manual) Monocytes % (Manual) Eosinophils % (Manual) Nucleated RBC % Seg Neutrophils # Seg Neutrophils # Man Lymphocytes # (Manual) Monocytes # (Manual) Eosinophils # (Manual) PT 15.4 H INR 1.17 H POC ABG pH POC ABG pCO2 POC ABG pO2 Sodium Potassium Chloride Carbon Dioxide 21 L BUN 26 H Creatinine 2.9 H Glucose POC Glucose 108 H Lactic Acid Calcium 7.2 L Phosphorus Magnesium AST ALT Alkaline Phosphatase Troponin T C-Reactive Protein Total Protein Albumin LDL Cholesterol Direct HDL Cholesterol Urine Creatinine Hepatitis C Antibody Crossmatch [facility]match [facility] 12/14/17 12/14/17 12/14/17 12:00 16:01 18:24 WBC 12.9 H RBC 3.25 L Hgb 8.2 L Hct 26.2 L MCV 81 L MCH 25 L MCHC 31 L RDW 19.2 H Plt Count Lymph % (Auto) [place] % (Auto) Eos % (Auto) Lymph # [place] # Eos # Seg Neutrophils % Seg Neuts % (Manual) Lymphocytes % (Manual) Monocytes % (Manual) Eosinophils % (Manual) Nucleated RBC % Seg Neutrophils # Seg Neutrophils # Man Lymphocytes # (Manual) Monocytes # (Manual) Eosinophils # (Manual) PT INR POC ABG pH POC ABG pCO2 POC ABG pO2 Sodium Potassium Chloride Carbon Dioxide BUN Creatinine Glucose POC Glucose 138 H 120 H Lactic Acid Calcium Phosphorus Magnesium AST ALT Alkaline Phosphatase Troponin T C-Reactive Protein Total Protein Albumin LDL Cholesterol Direct HDL Cholesterol Urine Creatinine Hepatitis C Antibody Crossmatch [facility]match [facility] 12/14/17 12/14/17 12/15/17 23:29 Unknown 05:57 WBC 12.5 H RBC 2.48 L Hgb 6.0 L Hct 24.4 L MCV 79 L MCH 24 L MCHC 30 L RDW 18.5 H Plt Count 131 L Lymph % (Auto) 7.0 L [place] % (Auto) 8.9 H Eos % (Auto) 8.3 H Lymph # 0.9 L [place] # 1.1 H Eos # 1.0 H Seg Neutrophils % 75.2 H Seg Neuts % (Manual) Lymphocytes % (Manual) Monocytes % (Manual) Eosinophils % (Manual) Nucleated RBC % Seg Neutrophils # 9.4 H Seg Neutrophils # Man Lymphocytes # (Manual) Monocytes # (Manual) Eosinophils # (Manual) PT INR POC ABG pH POC ABG pCO2 POC ABG pO2 Sodium Potassium Chloride Carbon Dioxide BUN Creatinine Glucose POC Glucose 110 H 113 H Lactic Acid Calcium Phosphorus Magnesium AST ALT Alkaline Phosphatase Troponin T C-Reactive Protein Total Protein Albumin LDL Cholesterol Direct HDL Cholesterol Urine Creatinine Hepatitis C Antibody Crossmatch [facility]match [facility] 12/15/17 12/15/17 12/15/17 11:50 13:37 17:58 WBC RBC Hgb 7.3 L Hct 23.3 L MCV MCH MCHC RDW Plt Count Lymph % (Auto) [place] % (Auto) Eos % (Auto) Lymph # [place] # Eos # Seg Neutrophils % Seg Neuts % (Manual) Lymphocytes % (Manual) Monocytes % (Manual) Eosinophils % (Manual) Nucleated RBC % Seg Neutrophils # Seg Neutrophils # Man Lymphocytes # (Manual) Monocytes # (Manual) Eosinophils # (Manual) PT INR POC ABG pH POC ABG pCO2 POC ABG pO2 Sodium Potassium Chloride Carbon Dioxide BUN Creatinine Glucose POC Glucose 106 H 110 H Lactic Acid Calcium Phosphorus Magnesium AST ALT Alkaline Phosphatase Troponin T C-Reactive Protein Total Protein Albumin LDL Cholesterol Direct HDL Cholesterol Urine Creatinine Hepatitis C Antibody Crossmatch [facility]match [facility] 12/15/17 12/16/17 12/16/17 23:30 04:55 05:14 WBC 13.2 H RBC 2.79 L Hgb 6.9 L Hct 22.2 L MCV 80 L MCH 25 L MCHC 31 L RDW 18.8 H Plt Count Lymph % (Auto) 7.3 L [place] % (Auto) 11.0 H Eos % (Auto) 8.2 H Lymph # 1.0 L [place] # 1.4 H Eos # 1.1 H Seg Neutrophils % 72.9 H Seg Neuts % (Manual) Lymphocytes % (Manual) Monocytes % (Manual) Eosinophils % (Manual) Nucleated RBC % Seg Neutrophils # 9.6 H Seg Neutrophils # Man Lymphocytes # (Manual) Monocytes # (Manual) Eosinophils # (Manual) PT INR POC ABG pH POC ABG pCO2 POC ABG pO2 Sodium 131 L D Potassium 2.8 L* D Chloride 93.2 L Carbon Dioxide BUN 24 H Creatinine 2.0 H Glucose POC Glucose 111 H Lactic Acid Calcium 7.7 L Phosphorus Magnesium AST ALT Alkaline Phosphatase Troponin T C-Reactive Protein Total Protein Albumin LDL Cholesterol Direct HDL Cholesterol Urine Creatinine Hepatitis C Antibody Crossmatch [facility]match [facility] 12/16/17 12/16/17 12/16/17 13:01 17:32 23:39 WBC RBC Hgb Hct MCV MCH MCHC RDW Plt Count Lymph % (Auto) [place] % (Auto) Eos % (Auto) Lymph # [place] # Eos # Seg Neutrophils % Seg Neuts % (Manual) Lymphocytes % (Manual) Monocytes % (Manual) Eosinophils % (Manual) Nucleated RBC % Seg Neutrophils # Seg Neutrophils # Man Lymphocytes # (Manual) Monocytes # (Manual) Eosinophils # (Manual) PT INR POC ABG pH POC ABG pCO2 POC ABG pO2 Sodium Potassium Chloride Carbon Dioxide BUN Creatinine Glucose POC Glucose 121 H 107 H Lactic Acid Calcium Phosphorus Magnesium AST ALT Alkaline Phosphatase Troponin T C-Reactive Protein Total Protein Albumin LDL Cholesterol Direct HDL Cholesterol Urine Creatinine Hepatitis C Antibody Crossmatch Crossmatch [facility] See Detail 12/17/17 12/17/17 12/17/17 05:08 05:08 12:03 WBC 12.9 H RBC 2.88 L Hgb 7.2 L Hct 22.6 L MCV 78 L MCH 25 L MCHC RDW 18.3 H Plt Count Lymph % (Auto) 8.0 L [place] % (Auto) 8.6 H Eos % (Auto) Lymph # 1.0 L [place] # 1.1 H Eos # Seg Neutrophils % 79.3 H Seg Neuts % (Manual) Lymphocytes % (Manual) Monocytes % (Manual) Eosinophils % (Manual) Nucleated RBC % Seg Neutrophils # 10.2 H Seg Neutrophils # Man Lymphocytes # (Manual) Monocytes # (Manual) Eosinophils # (Manual) PT INR POC ABG pH POC ABG pCO2 POC ABG pO2 Sodium Potassium 3.4 L D Chloride Carbon Dioxide BUN Creatinine Glucose 104 H POC Glucose 109 H Lactic Acid Calcium 7.6 L Phosphorus Magnesium 1.30 L AST ALT Alkaline Phosphatase 177 H Troponin T C-Reactive Protein Total Protein Albumin 2.0 L LDL Cholesterol Direct HDL Cholesterol Urine Creatinine Hepatitis C Antibody Crossmatch Crossmatch [facility] 12/17/17 12/18/17 12/18/17 23:40 00:50 00:50 WBC 22.6 H RBC 2.76 L Hgb 6.7 L Hct 21.6 L MCV 78 L MCH 24 L MCHC 31 L RDW 18.4 H Plt Count Lymph % (Auto) [place] % (Auto) Eos % (Auto) Lymph # [place] # Eos # Seg Neutrophils % Seg Neuts % (Manual) Lymphocytes % (Manual) Monocytes % (Manual) Eosinophils % (Manual) Nucleated RBC % Seg Neutrophils # Seg Neutrophils # Man Lymphocytes # (Manual) Monocytes # (Manual) Eosinophils # (Manual) PT INR POC ABG pH POC ABG pCO2 POC ABG pO2 Sodium Potassium Chloride Carbon Dioxide BUN 22 H Creatinine 1.6 H Glucose 113 H POC Glucose 120 H Lactic Acid Calcium 7.8 L Phosphorus Magnesium 1.50 L AST ALT Alkaline Phosphatase Troponin T C-Reactive Protein Total Protein Albumin LDL Cholesterol Direct HDL Cholesterol Urine Creatinine Hepatitis C Antibody Crossmatch Crossmatch [facility] 12/18/17 12/18/17 12/18/17 05:34 12:00 18:07 WBC RBC Hgb Hct MCV MCH MCHC RDW Plt Count Lymph % (Auto) [place] % (Auto) Eos % (Auto) Lymph # [place] # Eos # Seg Neutrophils % Seg Neuts % (Manual) Lymphocytes % (Manual) Monocytes % (Manual) Eosinophils % (Manual) Nucleated RBC % Seg Neutrophils # Seg Neutrophils # Man Lymphocytes # (Manual) Monocytes # (Manual) Eosinophils # (Manual) PT INR POC ABG pH POC ABG pCO2 POC ABG pO2 Sodium Potassium Chloride Carbon Dioxide BUN Creatinine Glucose POC Glucose 132 H 136 H 122 H Lactic Acid Calcium Phosphorus Magnesium AST ALT Alkaline Phosphatase Troponin T C-Reactive Protein Total Protein Albumin LDL Cholesterol Direct HDL Cholesterol Urine Creatinine Hepatitis C Antibody Crossmatch [facility]match [facility] 12/19/17 12/19/17 12/19/17 00:24 00:24 05:17 WBC 15.4 H RBC 2.41 L Hgb 6.1 L Hct 19.0 L* MCV 79 L MCH 25 L MCHC RDW 18.5 H Plt Count Lymph % (Auto) [place] % (Auto) Eos % (Auto) Lymph # [place] # Eos # Seg Neutrophils % Seg Neuts % (Manual) Lymphocytes % (Manual) Monocytes % (Manual) Eosinophils % (Manual) Nucleated RBC % Seg Neutrophils # Seg Neutrophils # Man Lymphocytes # (Manual) Monocytes # (Manual) Eosinophils # (Manual) PT INR POC ABG pH POC ABG pCO2 POC ABG pO2 Sodium Potassium 3.2 L Chloride Carbon Dioxide BUN Creatinine Glucose 117 H POC Glucose 132 H Lactic Acid Calcium 8.2 L Phosphorus Magnesium 1.50 L AST ALT Alkaline Phosphatase Troponin T C-Reactive Protein Total Protein Albumin LDL Cholesterol Direct HDL Cholesterol Urine Creatinine Hepatitis C Antibody Crossmatch Crossmatch [facility] 12/19/17 12/19/17 12/19/17 09:00 09:00 18:01 WBC 12.4 H RBC 2.86 L Hgb 7.2 L Hct 22.6 L MCV 79 L MCH 25 L MCHC RDW 17.2 H Plt Count Lymph % (Auto) 6.8 L [place] % (Auto) 12.6 H Eos % (Auto) Lymph # 0.8 L [place] # 1.6 H Eos # Seg Neutrophils % 80.1 H Seg Neuts % (Manual) Lymphocytes % (Manual) Monocytes % (Manual) Eosinophils % (Manual) Nucleated RBC % Seg Neutrophils # 10.0 H Seg Neutrophils # Man Lymphocytes # (Manual) Monocytes # (Manual) Eosinophils # (Manual) PT INR POC ABG pH POC ABG pCO2 POC ABG pO2 Sodium Potassium 3.1 L Chloride Carbon Dioxide BUN 22 H Creatinine Glucose 113 H POC Glucose 117 H Lactic Acid Calcium 8.3 L Phosphorus Magnesium AST 54 H ALT Alkaline Phosphatase 204 H Troponin T C-Reactive Protein Total Protein 5.8 L Albumin 2.0 L LDL Cholesterol Direct HDL Cholesterol Urine Creatinine Hepatitis C Antibody Crossmatch Crossmatch [place] 12/19/17 12/20/17 12/20/17 23:49 05:53 19:00 WBC RBC 3.03 L Hgb 7.7 L Hct 23.7 L MCV 78 L MCH 25 L MCHC RDW 17.2 H Plt Count Lymph % (Auto) [place] % (Auto) Eos % (Auto) Lymph # [place] # Eos # Seg Neutrophils % Seg Neuts % (Manual) 74.0 H Lymphocytes % (Manual) 6.0 L Monocytes % (Manual) 17.0 H Eosinophils % (Manual) Nucleated RBC % Seg Neutrophils # Seg Neutrophils # Man Lymphocytes # (Manual) 0.5 L Monocytes # (Manual) 1.5 H Eosinophils # (Manual) PT INR POC ABG pH POC ABG pCO2 POC ABG pO2 Sodium Potassium Chloride Carbon Dioxide BUN Creatinine Glucose POC Glucose 125 H 124 H Lactic Acid Calcium Phosphorus Magnesium AST ALT Alkaline Phosphatase Troponin T C-Reactive Protein Total Protein Albumin LDL Cholesterol Direct HDL Cholesterol Urine Creatinine Hepatitis C Antibody Crossmatch Crossmatch [place] 12/20/17 12/21/17 12/22/17 19:00 23:54 05:07 WBC RBC Hgb Hct MCV MCH MCHC RDW Plt Count Lymph % (Auto) [place] % (Auto) Eos % (Auto) Lymph # [place] # Eos # Seg Neutrophils % Seg Neuts % (Manual) Lymphocytes % (Manual) Monocytes % (Manual) Eosinophils % (Manual) Nucleated RBC % Seg Neutrophils # Seg Neutrophils # Man Lymphocytes # (Manual) Monocytes # (Manual) Eosinophils # (Manual) PT INR POC ABG pH POC ABG pCO2 POC ABG pO2 Sodium Potassium 3.3 L 2.9 L* Chloride Carbon Dioxide BUN 37 H 43 H Creatinine Glucose 114 H POC Glucose 109 H Lactic Acid Calcium 8.3 L 7.8 L Phosphorus 1.60 L Magnesium 1.50 L AST ALT Alkaline Phosphatase Troponin T C-Reactive Protein Total Protein Albumin LDL Cholesterol Direct HDL Cholesterol Urine Creatinine Hepatitis C Antibody Crossmatch Crossmatch [place] 12/22/17 12/22/17 12/22/17 05:07 05:07 06:02 WBC 4.1 L RBC 3.09 L Hgb 7.7 L Hct 24.3 L MCV 79 L MCH 25 L MCHC RDW 17.8 H Plt Count Lymph % (Auto) [place] % (Auto) Eos % (Auto) Lymph # [place] # Eos # Seg Neutrophils % Seg Neuts % (Manual) Lymphocytes % (Manual) Monocytes % (Manual) Eosinophils % (Manual) Nucleated RBC % Seg Neutrophils # Seg Neutrophils # Man Lymphocytes # (Manual) Monocytes # (Manual) Eosinophils # (Manual) PT INR POC ABG pH POC ABG pCO2 POC ABG pO2 Sodium Potassium Chloride Carbon Dioxide BUN Creatinine Glucose POC Glucose 107 H Lactic Acid Calcium Phosphorus Magnesium 1.60 L AST ALT Alkaline Phosphatase Troponin T C-Reactive Protein Total Protein Albumin LDL Cholesterol Direct HDL Cholesterol Urine Creatinine Hepatitis C Antibody Crossmatch Crossmatch [place] 12/22/17 12/22/17 12/22/17 10:50 12:02 17:32 WBC RBC Hgb Hct MCV MCH MCHC RDW Plt Count Lymph % (Auto) [place] % (Auto) Eos % (Auto) Lymph # [place] # Eos # Seg Neutrophils % Seg Neuts % (Manual) Lymphocytes % (Manual) Monocytes % (Manual) Eosinophils % (Manual) Nucleated RBC % Seg Neutrophils # Seg Neutrophils # Man Lymphocytes # (Manual) Monocytes # (Manual) Eosinophils # (Manual) PT INR POC ABG pH POC ABG pCO2 POC ABG pO2 Sodium Potassium Chloride Carbon Dioxide BUN Creatinine Glucose POC Glucose 129 H 111 H Lactic Acid Calcium Phosphorus Magnesium AST ALT Alkaline Phosphatase Troponin T C-Reactive Protein Total Protein Albumin LDL Cholesterol Direct HDL Cholesterol Urine Creatinine 55.8 H Hepatitis C Antibody Crossmatch Crossmatch [place] 12/22/17 12/22/17 12/23/17 19:03 23:57 05:55 WBC RBC Hgb Hct MCV MCH MCHC RDW Plt Count Lymph % (Auto) [place] % (Auto) Eos % (Auto) Lymph # [place] # Eos # Seg Neutrophils % Seg Neuts % (Manual) Lymphocytes % (Manual) Monocytes % (Manual) Eosinophils % (Manual) Nucleated RBC % Seg Neutrophils # Seg Neutrophils # Man Lymphocytes # (Manual) Monocytes # (Manual) Eosinophils # (Manual) PT INR POC ABG pH POC ABG pCO2 POC ABG pO2 Sodium Potassium 3.4 L 2.9 L* Chloride Carbon Dioxide BUN 40 H Creatinine Glucose 107 H POC Glucose 128 H Lactic Acid Calcium 7.9 L Phosphorus Magnesium AST ALT Alkaline Phosphatase Troponin T C-Reactive Protein Total Protein Albumin LDL Cholesterol Direct HDL Cholesterol Urine Creatinine Hepatitis C Antibody Crossmatch Crossmatch [place] 12/23/17 12/23/17 12/23/17 05:55 05:55 11:59 WBC 3.8 L RBC 3.10 L Hgb 7.7 L Hct 25.5 L MCV 82 L MCH 25 L MCHC 30 L RDW 17.9 H Plt Count Lymph % (Auto) [place] % (Auto) Eos % (Auto) Lymph # [place] # Eos # Seg Neutrophils % Seg Neuts % (Manual) Lymphocytes % (Manual) Monocytes % (Manual) Eosinophils % (Manual) Nucleated RBC % Seg Neutrophils # Seg Neutrophils # Man Lymphocytes # (Manual) Monocytes # (Manual) Eosinophils # (Manual) PT INR POC ABG pH POC ABG pCO2 POC ABG pO2 Sodium Potassium Chloride Carbon Dioxide BUN Creatinine Glucose POC Glucose 115 H Lactic Acid Calcium Phosphorus Magnesium 1.60 L AST ALT Alkaline Phosphatase Troponin T C-Reactive Protein Total Protein Albumin LDL Cholesterol Direct HDL Cholesterol Urine Creatinine Hepatitis C Antibody Crossmatch Crossmatch [place] 12/23/17 12/24/17 12/24/17 22:48 00:29 03:17 WBC RBC Hgb Hct MCV MCH MCHC RDW Plt Count Lymph % (Auto) [place] % (Auto) Eos % (Auto) Lymph # [place] # Eos # Seg Neutrophils % Seg Neuts % (Manual) Lymphocytes % (Manual) Monocytes % (Manual) Eosinophils % (Manual) Nucleated RBC % Seg Neutrophils # Seg Neutrophils # Man Lymphocytes # (Manual) Monocytes # (Manual) Eosinophils # (Manual) PT INR POC ABG pH POC ABG pCO2 POC ABG pO2 Sodium 146 H Potassium 2.9 L* 3.4 L Chloride Carbon Dioxide BUN 36 H Creatinine 0.7 L Glucose POC Glucose 111 H Lactic Acid Calcium 7.5 L Phosphorus Magnesium 1.60 L AST 76 H ALT 59 H Alkaline Phosphatase 294 H Troponin T C-Reactive Protein Total Protein 5.8 L Albumin 2.2 L LDL Cholesterol Direct HDL Cholesterol Urine Creatinine Hepatitis C Antibody Crossmatch Crossmatch [place] 12/24/17 12/24/17 12/24/17 03:17 05:14 17:05 WBC RBC 3.03 L Hgb 7.6 L Hct 23.7 L MCV 78 L MCH 25 L MCHC RDW 17.8 H Plt Count Lymph % (Auto) [place] % (Auto) Eos % (Auto) Lymph # [place] # Eos # Seg Neutrophils % Seg Neuts % (Manual) Lymphocytes % (Manual) Monocytes % (Manual) Eosinophils % (Manual) Nucleated RBC % Seg Neutrophils # Seg Neutrophils # Man Lymphocytes # (Manual) Monocytes # (Manual) Eosinophils # (Manual) PT INR POC ABG pH POC ABG pCO2 POC ABG pO2 Sodium Potassium Chloride Carbon Dioxide BUN Creatinine Glucose POC Glucose 127 H 132 H Lactic Acid Calcium Phosphorus Magnesium AST ALT Alkaline Phosphatase Troponin T C-Reactive Protein Total Protein Albumin LDL Cholesterol Direct HDL Cholesterol Urine Creatinine Hepatitis C Antibody Crossmatch Crossmatch [place] 12/25/17 12/25/17 12/25/17 00:03 04:34 06:25 WBC RBC Hgb Hct MCV MCH MCHC RDW Plt Count Lymph % (Auto) [place] % (Auto) Eos % (Auto) Lymph # [place] # Eos # Seg Neutrophils % Seg Neuts % (Manual) Lymphocytes % (Manual) Monocytes % (Manual) Eosinophils % (Manual) Nucleated RBC % Seg Neutrophils # Seg Neutrophils # Man Lymphocytes # (Manual) Monocytes # (Manual) Eosinophils # (Manual) PT INR POC ABG pH POC ABG pCO2 POC ABG pO2 Sodium Potassium Chloride Carbon Dioxide BUN 30 H Creatinine 0.6 L Glucose 114 H POC Glucose 128 H 136 H Lactic Acid Calcium 7.5 L Phosphorus Magnesium AST 84 H ALT 82 H Alkaline Phosphatase 322 H Troponin T C-Reactive Protein Total Protein 6.0 L Albumin 2.3 L LDL Cholesterol Direct HDL Cholesterol Urine Creatinine Hepatitis C Antibody Crossmatch Crossmatch [place] 12/25/17 12/25/17 12/26/17 12:02 18:28 00:03 WBC RBC Hgb Hct MCV MCH MCHC RDW Plt Count Lymph % (Auto) [place] % (Auto) Eos % (Auto) Lymph # [place] # Eos # Seg Neutrophils % Seg Neuts % (Manual) Lymphocytes % (Manual) Monocytes % (Manual) Eosinophils % (Manual) Nucleated RBC % Seg Neutrophils # Seg Neutrophils # Man Lymphocytes # (Manual) Monocytes # (Manual) Eosinophils # (Manual) PT INR POC ABG pH POC ABG pCO2 POC ABG pO2 Sodium Potassium Chloride Carbon Dioxide BUN Creatinine Glucose POC Glucose 158 H 113 H 117 H Lactic Acid Calcium Phosphorus Magnesium AST ALT Alkaline Phosphatase Troponin T C-Reactive Protein Total Protein Albumin LDL Cholesterol Direct HDL Cholesterol Urine Creatinine Hepatitis C Antibody Crossmatch Crossmatch [place] 12/26/17 12/26/17 12/26/17 04:26 06:35 08:47 WBC RBC Hgb Hct MCV MCH MCHC RDW Plt Count Lymph % (Auto) [place] % (Auto) Eos % (Auto) Lymph # [place] # Eos # Seg Neutrophils % Seg Neuts % (Manual) Lymphocytes % (Manual) Monocytes % (Manual) Eosinophils % (Manual) Nucleated RBC % Seg Neutrophils # Seg Neutrophils # Man Lymphocytes # (Manual) Monocytes # (Manual) Eosinophils # (Manual) PT INR POC ABG pH POC ABG pCO2 POC ABG pO2 Sodium Potassium 5.4 H D 3.3 L D Chloride Carbon Dioxide 21 L BUN 39 H Creatinine 0.7 L Glucose 121 H POC Glucose 122 H Lactic Acid Calcium 7.8 L Phosphorus Magnesium AST 144 H ALT 98 H Alkaline Phosphatase 330 H Troponin T C-Reactive Protein Total Protein 6.1 L Albumin 2.1 L LDL Cholesterol Direct HDL Cholesterol Urine Creatinine Hepatitis C Antibody Crossmatch Crossmatch [place] 12/26/17 12/26/17 12/27/17 12:29 18:27 07:34 WBC RBC Hgb Hct MCV MCH MCHC RDW Plt Count Lymph % (Auto) [place] % (Auto) Eos % (Auto) Lymph # [place] # Eos # Seg Neutrophils % Seg Neuts % (Manual) Lymphocytes % (Manual) Monocytes % (Manual) Eosinophils % (Manual) Nucleated RBC % Seg Neutrophils # Seg Neutrophils # Man Lymphocytes # (Manual) Monocytes # (Manual) Eosinophils # (Manual) PT INR POC ABG pH POC ABG pCO2 POC ABG pO2 Sodium Potassium 3.1 L Chloride Carbon Dioxide BUN Creatinine 0.5 L Glucose POC Glucose 128 H 121 H Lactic Acid Calcium 7.7 L Phosphorus Magnesium AST 74 H ALT 80 H Alkaline Phosphatase 306 H Troponin T C-Reactive Protein Total Protein 6.1 L Albumin 2.1 L LDL Cholesterol Direct HDL Cholesterol Urine Creatinine Hepatitis C Antibody Crossmatch Crossmatch [place] 12/27/17 12/28/17 12/28/17 07:34 04:59 04:59 WBC 11.1 H RBC 3.00 L Hgb 7.2 L Hct 23.6 L MCV 79 L MCH 24 L MCHC 31 L RDW 18.3 H Plt Count Lymph % (Auto) 10.0 L [place] % (Auto) 10.2 H Eos % (Auto) 6.7 H Lymph # 1.1 L [place] # 1.1 H Eos # 0.7 H Seg Neutrophils % 72.1 H Seg Neuts % (Manual) Lymphocytes % (Manual) Monocytes % (Manual) Eosinophils % (Manual) Nucleated RBC % Seg Neutrophils # 8.0 H Seg Neutrophils # Man Lymphocytes # (Manual) Monocytes # (Manual) Eosinophils # (Manual) PT INR POC ABG pH POC ABG pCO2 POC ABG pO2 Sodium Potassium Chloride Carbon Dioxide BUN Creatinine 0.4 L Glucose 102 H POC Glucose Lactic Acid Calcium 7.8 L Phosphorus Magnesium 1.30 L AST 58 H ALT 62 H Alkaline Phosphatase 274 H Troponin T C-Reactive Protein Total Protein 6.0 L Albumin 2.0 L LDL Cholesterol Direct HDL Cholesterol Urine Creatinine Hepatitis C Antibody Crossmatch Crossmatch [place] 12/28/17 12/29/17 12/29/17 18:06 04:02 04:02 WBC RBC Hgb Hct MCV MCH MCHC RDW Plt Count Lymph % (Auto) [place] % (Auto) Eos % (Auto) Lymph # [place] # Eos # Seg Neutrophils % Seg Neuts % (Manual) Lymphocytes % (Manual) Monocytes % (Manual) Eosinophils % (Manual) Nucleated RBC % Seg Neutrophils # Seg Neutrophils # Man Lymphocytes # (Manual) Monocytes # (Manual) Eosinophils # (Manual) PT INR POC ABG pH POC ABG pCO2 POC ABG pO2 Sodium Potassium Chloride Carbon Dioxide BUN Creatinine 0.5 L Glucose POC Glucose 107 H Lactic Acid Calcium 7.8 L Phosphorus Magnesium 1.40 L AST 50 H ALT Alkaline Phosphatase 311 H Troponin T C-Reactive Protein Total Protein 5.9 L Albumin 2.3 L LDL Cholesterol Direct HDL Cholesterol Urine Creatinine Hepatitis C Antibody Crossmatch Crossmatch [place] 12/29/17 12:10 WBC RBC Hgb Hct MCV MCH MCHC RDW Plt Count Lymph % (Auto) [place] % (Auto) Eos % (Auto) Lymph # [place] # Eos # Seg Neutrophils % Seg Neuts % (Manual) Lymphocytes % (Manual) Monocytes % (Manual) Eosinophils % (Manual) Nucleated RBC % Seg Neutrophils # Seg Neutrophils # Man Lymphocytes # (Manual) Monocytes # (Manual) Eosinophils # (Manual) PT INR POC ABG pH POC ABG pCO2 POC ABG pO2 Sodium Potassium Chloride Carbon Dioxide BUN Creatinine Glucose POC Glucose 124 H Lactic Acid Calcium Phosphorus Magnesium AST ALT Alkaline Phosphatase Troponin T C-Reactive Protein Total Protein Albumin LDL Cholesterol Direct HDL Cholesterol Urine Creatinine Hepatitis C Antibody Crossmatch Crossmatch [place]
[2017-12-30 05:34] LABS: Alanine Aminotransferase 48 units/L (7-56); Albumin 2.4 g/dL (3.9-5); BUN/Creatinine Ratio 32; Blood Urea Nitrogen 16 mg/dL (9-20); Calcium 8.2 mg/dL (8.4-10.2); Hemolysis Index 31
[2017-12-30] MEDS: POTASSIUM CHLORIDE FEEDTUBE SCH ×2 (09:44→21:37)
[2017-12-30] MEDS: PREVACID SOLUTAB FEEDTUBE SCH ×2 (09:44→21:39)
[2017-12-30] MEDS: LOPRESSOR PO SCH ×2 (09:44→21:38)
[2017-12-30] MEDS: MAG-OX PO SCH ×2 (09:45→21:37)
--- NOTE | 2017-12-30 10:07 | Progress Note ---
Assessment and Plan Assessment and plan: Admitted 11/12/17 Mr. 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 He had a Carotid doppler done that revealed a right ICA 50-79% stenosis. CTA of the neck revealed 80% stenosis of the right ICA with probable 50% stenosis of the origin of the right common carotid artery. His symptoms were thought to be due to the Carotid artery stenosis which was disheartening since he was on Aspirin and plavix. He was scheduled for right CEA but needed Cardiac clearance. He underwent stress test on 10/05/17 and Commercial Loan Assistant stated he was stable for non-cardiac history, low to moderate perioperative risk. So, he underwent right carotid enarterectomy on 10/09/17. Following the surgery, he developed recurrent left sided weakness/hemiparesis and was taken back to the OR on 10/10/17 for Open Thrombectomy of Right Internal Carotid Artery and Injection of tPA into the Artery. CT head obtained 2 days after surgery on 10/12 showed massive right cerebral hemisphere acute CVA with midline shift. He was subsequently discharged on 11/10/[address] [facility] but returned to [facility] and was re-admitted on 11/12/17 for suspected sepsis due to Aspiration post-obstructive pneumonia with suspected mucus plug and subsequently intubated on admission. On 11/20/17, patient went for Tracheostomy by Dr. Hughes, ENT. Then on 11/21/17 patient went into shock, most likely sepsis as WBC went up to 38.2k; initially thought to be due worsening aspiration pneumonia but it was discovered that he had a dislodged PEG tube from the Nursing, most likely present on admission, which lead to the shock from severe intra-abdominal infection/ peritonitis requiring IR drainage and General surgery drainage. Peritonitis - from dislodged peg tube, hence not present - has completed abx - s/p multiple intraabdominal drainages placed by IR and GS. -awaiting abdominal wounds to heal prior to placement of new PEG tube per dr fitzpatrick "Pt appears stable. s/p dx lap and washout - 12/03 POD#25. Pt stable. Will leave drains until output slows down and clears up. " -Acute hypoxic respiratory failure due to Pneumonia on MV>96 hours s/p Tracheostomy 11/20/17: continue trache collar -septic shock, resolved -Aspiration pneumonia, resolved -Acute encephalopathy: currently at new baseline, non verbal, moves right side on command -Hypernatremia: improved with free water -Hypokalemia ; replaced hypomagnesemia: replace and monitor closely -ARF vasomotor nephropathy, poa: IV fluids, monitor bmp closely, received HD and now has renal recovery -Dysphagia with aspiration: s/p peg tube -Acute on chronic blood loss anemia w/Coffee-ground material from peg tube: GI is following, treat with ppi iv bid, EGD done 11/18/17 showed 8 mm cratered, 10 mm linear ulcer proximal lesser curvature with erythema but no other bleeding stigmata, gastritis and 4-5 cm hiatal hernia -Advance care planning: full code -Disposition: continue inpatient care, LTAC declined to accept patient without PEG tube. D/W Gen Sx, awaiting abdominal wounds to heal, then new peg tube prior to snf placement KILEY is daughter, Eugenie [phone], History Interval history: patient is calm and obeys simple commands no events, no agitation, no fevers no seizures, Hospitalist Physical - Physical exam Narrative exam: General appearance: Present:appears chronically ill - EENT Eyes: Present: PERRL - Neck Neck: Present: supple - Respiratory Respiratory effort: labored Respiratory: bilateral: rales - Cardiovascular Rhythm: regular Heart Sounds: Present: S1 & S2 - Extremities Extremities: no ischemia - Abdominal General gastrointestinal: soft, non-tender - Integumentary Integumentary: Present: clear, warm, dry - Psychiatric Psychiatric: non verbal, trached to trache collar - Neurologic Neurologic: left hemiplegia, able to move right side on command, but right side is weak condom cath in place - Constitutional Vitals: Temp Pulse Resp BP Pulse Ox 98.3 F 104 H 24 136/76 98 12/30/17 08:00 12/30/17 09:44 12/30/17 07:00 12/30/17 09:44 12/30/17 08:11 General appearance: Present: no acute distress Results - Labs CBC & Chem 7: 12/28/17 04:59 12/30/17 04:46 Labs: Laboratory Last Values WBC 11.1 K/mm3 (4.5-11.0) H 12/28/17 04:59 RBC 3.00 M/mm3 (3.65-5.03) L 12/28/17 04:59 Hgb 7.2 gm/dl (11.8-15.2) L 12/28/17 04:59 Hct 23.6 % (35.5-45.6) L 12/28/17 04:59 MCV 79 fl (84-94) L 12/28/17 04:59 MCH 24 pg (28-32) L 12/28/17 04:59 MCHC 31 % (32-34) L 12/28/17 04:59 RDW 18.3 % (13.2-15.2) H 12/28/17 04:59 Plt Count 201 K/mm3 (140-440) 12/28/17 04:59 Lymph % (Auto) 10.0 % (13.4-35.0) L 12/28/17 04:59 [place] % (Auto) 10.2 % (0.0-7.3) H 12/28/17 04:59 Eos % (Auto) 6.7 % (0.0-4.3) H 12/28/17 04:59 Baso % (Auto) 1.0 % (0.0-1.8) 12/28/17 04:59 Lymph # 1.1 K/mm3 (1.2-5.4) L 12/28/17 04:59 [place] # 1.1 K/mm3 (0.0-0.8) H 12/28/17 04:59 Eos # 0.7 K/mm3 (0.0-0.4) H 12/28/17 04:59 Baso # 0.1 K/mm3 (0.0-0.1) 12/28/17 04:59 Add Manual Diff Complete 12/20/17 19:00 Total Counted 100 12/20/17 19:00 Seg Neutrophils % 72.1 % (40.0-70.0) H 12/28/17 04:59 Seg Neuts % (Manual) 74.0 % (40.0-70.0) H 12/20/17 19:00 Band Neutrophils % 2.0 % 12/20/17 19:00 Lymphocytes % (Manual) 6.0 % (13.4-35.0) L 12/20/17 19:00 Reactive Lymphs % (Man) 0 % 12/20/17 19:00 Monocytes % (Manual) 17.0 % (0.0-7.3) H 12/20/17 19:00 Eosinophils % (Manual) 1.0 % (0.0-4.3) 12/20/17 19:00 Basophils % (Manual) 0 % (0.0-1.8) 12/20/17 19:00 Metamyelocytes % 0 % 12/20/17 19:00 Myelocytes % 0 % 12/20/17 19:00 Promyelocytes % 0 % 12/20/17 19:00 Blast Cells % 0 % 12/20/17 19:00 Nucleated RBC % Not Reportable 12/20/17 19:00 Seg Neutrophils # 8.0 K/mm3 (1.8-7.7) H 12/28/17 04:59 Seg Neutrophils # Man 6.4 K/mm3 (1.8-7.7) 12/20/17 19:00 Band Neutrophils # 0.2 K/mm3 12/20/17 19:00 Lymphocytes # (Manual) 0.5 K/mm3 (1.2-5.4) L 12/20/17 19:00 Abs React Lymphs (Man) 0.0 K/mm3 12/20/17 19:00 Monocytes # (Manual) 1.5 K/mm3 (0.0-0.8) H 12/20/17 19:00 Eosinophils # (Manual) 0.1 K/mm3 (0.0-0.4) 12/20/17 19:00 Basophils # (Manual) 0.0 K/mm3 (0.0-0.1) 12/20/17 19:00 Metamyelocytes # 0.0 K/mm3 12/20/17 19:00 Myelocytes # 0.0 K/mm3 12/20/17 19:00 Promyelocytes # 0.0 K/mm3 12/20/17 19:00 Blast Cells # 0.0 K/mm3 12/20/17 19:00 WBC Morphology Not Reportable 12/20/17 19:00 Hypersegmented Neuts Not Reportable 12/20/17 19:00 Hyposegmented Neuts Not Reportable 12/20/17 19:00 Hypogranular Neuts Not Reportable 12/20/17 19:00 Smudge Cells Not Reportable 12/20/17 19:00 Toxic Granulation Not Reportable 12/20/17 19:00 Toxic Vacuolation Not Reportable 12/20/17 19:00 Dohle Bodies Not Reportable 12/20/17 19:00 Pelger-Huet Anomaly Not Reportable 12/20/17 19:00 Evangelina Rods Not Reportable 12/20/17 19:00 Platelet Estimate Appears normal 12/20/17 19:00 Clumped Platelets Not Reportable 12/20/17 19:00 Plt Clumps, EDTA Not Reportable 12/20/17 19:00 Large Platelets Not Reportable 12/20/17 19:00 Giant Platelets Not Reportable 12/20/17 19:00 Platelet Satelliting Not Reportable 12/20/17 19:00 Plt Morphology Comment Not Reportable 12/20/17 19:00 RBC Morphology Not Reportable 12/20/17 19:00 Dimorphic RBCs Not Reportable 12/20/17 19:00 Polychromasia Not Reportable 12/20/17 19:00 Hypochromasia 2+ 12/20/17 19:00 Poikilocytosis Few 12/20/17 19:00 Anisocytosis 1+ 12/20/17 19:00 Microcytosis 1+ 12/20/17 19:00 Macrocytosis Not Reportable 12/20/17 19:00 Spherocytes Not Reportable 12/20/17 19:00 Pappenheimer Bodies Not Reportable 12/20/17 19:00 Sickle Cells Not Reportable 12/20/17 19:00 Target Cells Not Reportable 12/20/17 19:00 Tear Drop Cells Not Reportable 12/20/17 19:00 Ovalocytes Few 12/20/17 19:00 Stomatocytes 1+ 12/12/17 05:41 Helmet Cells Not Reportable 12/20/17 19:00 [place] Bodies Not Reportable 12/20/17 19:00 [place] Rings Not Reportable 12/20/17 19:00 Broad [place] Cells Not Reportable 12/20/17 19:00 Bite Cells Not Reportable 12/20/17 19:00 Crenated Cell Not Reportable 12/20/17 19:00 Elliptocytes Not Reportable 12/20/17 19:00 Acanthocytes (Spur) Not Reportable 12/20/17 19:00 Rouleaux Not Reportable 12/20/17 19:00 Hemoglobin C Crystals Not Reportable 12/20/17 19:00 Schistocytes Not Reportable 12/20/17 19:00 Malaria parasites Not Reportable 12/20/17 19:00 [place] Bodies Not Reportable 12/20/17 19:00 Hem Pathologist Commnt No 12/20/17 19:00 PT 15.4 Sec. (12.2-14.9) H 12/14/17 05:11 INR 1.17 (0.87-1.13) H 12/14/17 05:11 APTT 33.8 Sec. (24.2-36.6) 11/26/17 06:29 POC ABG pH 7.505 (7.35-7.45) H 11/23/17 04:56 POC ABG pCO2 26.3 (35-45) L 11/23/17 04:56 POC ABG pO2 100 (80-105) 11/23/17 04:56 POC ABG HCO3 20.8 11/23/17 04:56 POC ABG Total CO2 22 11/23/17 04:56 POC ABG O2 Sat 98 11/23/17 04:56 POC ABG Base Excess -2 11/23/17 04:56 FiO2 30 % 11/23/17 04:56 Sodium 141 mmol/L (137-145) 12/30/17 04:46 Potassium 4.5 mmol/L (3.6-5.0) 12/30/17 04:46 Chloride 103.5 mmol/L (98-107) 12/30/17 04:46 Carbon Dioxide 23 mmol/L (22-30) 12/30/17 04:46 Anion Gap 19 mmol/L 12/30/17 04:46 BUN 16 mg/dL (9-20) 12/30/17 04:46 Creatinine 0.5 mg/dL (0.8-1.5) L 12/30/17 04:46 Estimated GFR > 60 ml/min 12/30/17 04:46 BUN/Creatinine Ratio 32 % 12/30/17 04:46 Glucose 90 mg/dL (75-100) 12/30/17 04:46 POC Glucose 104 (70-105) 12/30/17 05:48 Lactic Acid 1.80 mmol/L (0.7-2.0) 11/27/17 04:06 Calcium 8.2 mg/dL (8.4-10.2) L 12/30/17 04:46 Phosphorus 1.60 mg/dL (2.5-4.5) L 12/20/17 19:00 Magnesium 1.50 mg/dL (1.7-2.3) L 12/30/17 04:46 Total Bilirubin 0.30 mg/dL (0.1-1.2) 12/30/17 04:46 AST 37 units/L (5-40) 12/30/17 04:46 ALT 48 units/L (7-56) 12/30/17 04:46 Alkaline Phosphatase 288 units/L (35-129) H 12/30/17 04:46 Total Creatine Kinase 84 units/L (55-170) 11/12/17 20:03 CK-MB (CK-2) < 1.0 ng/mL (0.0-4.0) 11/12/17 20:03 CK-MB (CK-2) Rel Index 1.1 (0-4) 11/12/17 20:03 Troponin T 0.098 ng/mL (0.00-0.029) H 11/12/17 Unknown C-Reactive Protein 25.70 mg/dL (0.00-1.30) H 11/11/17 23:20 NT-Pro-B Natriuret Pep 792.4 pg/mL (0-900) 11/11/17 23:20 Total Protein 6.6 g/dL (6.3-8.2) 12/30/17 04:46 Albumin 2.4 g/dL (3.9-5) L 12/30/17 04:46 Albumin/Globulin Ratio 0.6 % 12/30/17 04:46 Triglycerides 86 mg/dL (2-149) 11/11/17 23:20 Cholesterol 82 mg/dL (50-199) 11/11/17 23:20 LDL Cholesterol Direct 42 mg/dL (50-130) L 11/11/17 23:20 HDL Cholesterol 24 mg/dL (40-59) L 11/11/17 23:20 Cholesterol/HDL Ratio 3.41 % 11/11/17 23:20 Lipase 30 units/L (13-60) 11/11/17 23:20 Urine Color Nicole (Yellow) 11/11/17 23:09 Urine Turbidity Cloudy (Clear) 11/11/17 23:09 Urine pH 5.0 (5.0-7.0) 11/11/17 23:09 Ur Specific [place] 1.025 (1.003-1.030) 11/11/17 23:09 Urine Protein 100 mg/dl mg/dL (Negative) 11/11/17 23:09 Urine Glucose (UA) 50 mg/dL (Negative) 11/11/17 23:09 Urine Ketones Neg mg/dL (Negative) 11/11/17 23:09 Urine Blood Neg (Negative) 11/11/17 23:09 Urine Nitrite Neg (Negative) 11/11/17 23:09 Urine Bilirubin Neg (Negative) 11/11/17 23:09 Urine Urobilinogen 4.0 mg/dL (<2.0) 11/11/17 23:09 Ur Leukocyte Esterase Neg (Negative) 11/11/17 23:09 Urine WBC (Auto) 5.0 /HPF (0.0-6.0) 11/11/17 23:09 Urine RBC (Auto) 4.0 /HPF (0.0-6.0) 11/11/17 23:09 Urine Bacteria (Auto) 3+ /HPF (Negative) 11/11/17 23:09 Amorphous Crystals 3+ 11/11/17 23:09 Hyaline Casts 76 /LPF 11/11/17 23:09 Urine Mucus 2+ /HPF 11/11/17 23:09 Urine Total Volume 1350 12/22/17 10:50 Urine Creatinine 55.8 mg/dL (0.1-20.0) H 12/22/17 10:50 Ur Creatinine 24 Hour 0.8 (0.8-2.8) 12/22/17 10:50 Hepatitis A IgM Ab Non-reactive (NonReactive) 11/22/17 19:45 Hep Bs Antigen Non-reactive (Negative) 11/22/17 19:45 Hep B Core IgM Ab Non-reactive (NonReactive) 11/22/17 19:45 Hepatitis C Antibody Reactive (NonReactive) A 11/22/17 19:45 Blood Type A POSITIVE 12/16/17 13:01 Antibody Screen Positive 12/16/17 13:01 SANTANA Antibody Screen Cancelled 12/16/17 13:01 Antibody Identification Cold Antibody 12/16/17 13:01 Crossmatch See Detail 12/16/17 13:01 Crossmatch Prewarmed See Detail 12/16/17 13:01
--- NOTE | 2017-12-30 12:32 | Progress Note ---
Hospitalist Physical - Constitutional Vitals: Temp Pulse Resp BP Pulse Ox 98.3 F 104 H 24 136/76 98 12/30/17 08:00 12/30/17 09:44 12/30/17 07:00 12/30/17 09:44 12/30/17 08:11 General appearance: Present: no acute distress Results - Labs CBC & Chem 7: 12/28/17 04:59 12/30/17 04:46 Labs: Laboratory Last Values WBC 11.1 K/mm3 (4.5-11.0) H 12/28/17 04:59 RBC 3.00 M/mm3 (3.65-5.03) L 12/28/17 04:59 Hgb 7.2 gm/dl (11.8-15.2) L 12/28/17 04:59 Hct 23.6 % (35.5-45.6) L 12/28/17 04:59 MCV 79 fl (84-94) L 12/28/17 04:59 MCH 24 pg (28-32) L 12/28/17 04:59 MCHC 31 % (32-34) L 12/28/17 04:59 RDW 18.3 % (13.2-15.2) H 12/28/17 04:59 Plt Count 201 K/mm3 (140-440) 12/28/17 04:59 Lymph % (Auto) 10.0 % (13.4-35.0) L 12/28/17 04:59 [place] % (Auto) 10.2 % (0.0-7.3) H 12/28/17 04:59 Eos % (Auto) 6.7 % (0.0-4.3) H 12/28/17 04:59 Baso % (Auto) 1.0 % (0.0-1.8) 12/28/17 04:59 Lymph # 1.1 K/mm3 (1.2-5.4) L 12/28/17 04:59 [place] # 1.1 K/mm3 (0.0-0.8) H 12/28/17 04:59 Eos # 0.7 K/mm3 (0.0-0.4) H 12/28/17 04:59 Baso # 0.1 K/mm3 (0.0-0.1) 12/28/17 04:59 Add Manual Diff Complete 12/20/17 19:00 Total Counted 100 12/20/17 19:00 Seg Neutrophils % 72.1 % (40.0-70.0) H 12/28/17 04:59 Seg Neuts % (Manual) 74.0 % (40.0-70.0) H 12/20/17 19:00 Band Neutrophils % 2.0 % 12/20/17 19:00 Lymphocytes % (Manual) 6.0 % (13.4-35.0) L 12/20/17 19:00 Reactive Lymphs % (Man) 0 % 12/20/17 19:00 Monocytes % (Manual) 17.0 % (0.0-7.3) H 12/20/17 19:00 Eosinophils % (Manual) 1.0 % (0.0-4.3) 12/20/17 19:00 Basophils % (Manual) 0 % (0.0-1.8) 12/20/17 19:00 Metamyelocytes % 0 % 12/20/17 19:00 Myelocytes % 0 % 12/20/17 19:00 Promyelocytes % 0 % 12/20/17 19:00 Blast Cells % 0 % 12/20/17 19:00 Nucleated RBC % Not Reportable 12/20/17 19:00 Seg Neutrophils # 8.0 K/mm3 (1.8-7.7) H 12/28/17 04:59 Seg Neutrophils # Man 6.4 K/mm3 (1.8-7.7) 12/20/17 19:00 Band Neutrophils # 0.2 K/mm3 12/20/17 19:00 Lymphocytes # (Manual) 0.5 K/mm3 (1.2-5.4) L 12/20/17 19:00 Abs React Lymphs (Man) 0.0 K/mm3 12/20/17 19:00 Monocytes # (Manual) 1.5 K/mm3 (0.0-0.8) H 12/20/17 19:00 Eosinophils # (Manual) 0.1 K/mm3 (0.0-0.4) 12/20/17 19:00 Basophils # (Manual) 0.0 K/mm3 (0.0-0.1) 12/20/17 19:00 Metamyelocytes # 0.0 K/mm3 12/20/17 19:00 Myelocytes # 0.0 K/mm3 12/20/17 19:00 Promyelocytes # 0.0 K/mm3 12/20/17 19:00 Blast Cells # 0.0 K/mm3 12/20/17 19:00 WBC Morphology Not Reportable 12/20/17 19:00 Hypersegmented Neuts Not Reportable 12/20/17 19:00 Hyposegmented Neuts Not Reportable 12/20/17 19:00 Hypogranular Neuts Not Reportable 12/20/17 19:00 Smudge Cells Not Reportable 12/20/17 19:00 Toxic Granulation Not Reportable 12/20/17 19:00 Toxic Vacuolation Not Reportable 12/20/17 19:00 Dohle Bodies Not Reportable 12/20/17 19:00 Pelger-Huet Anomaly Not Reportable 12/20/17 19:00 Evangelina Rods Not Reportable 12/20/17 19:00 Platelet Estimate Appears normal 12/20/17 19:00 Clumped Platelets Not Reportable 12/20/17 19:00 Plt Clumps, EDTA Not Reportable 12/20/17 19:00 Large Platelets Not Reportable 12/20/17 19:00 Giant Platelets Not Reportable 12/20/17 19:00 Platelet Satelliting Not Reportable 12/20/17 19:00 Plt Morphology Comment Not Reportable 12/20/17 19:00 RBC Morphology Not Reportable 12/20/17 19:00 Dimorphic RBCs Not Reportable 12/20/17 19:00 Polychromasia Not Reportable 12/20/17 19:00 Hypochromasia 2+ 12/20/17 19:00 Poikilocytosis Few 12/20/17 19:00 Anisocytosis 1+ 12/20/17 19:00 Microcytosis 1+ 12/20/17 19:00 Macrocytosis Not Reportable 12/20/17 19:00 Spherocytes Not Reportable 12/20/17 19:00 Pappenheimer Bodies Not Reportable 12/20/17 19:00 Sickle Cells Not Reportable 12/20/17 19:00 Target Cells Not Reportable 12/20/17 19:00 Tear Drop Cells Not Reportable 12/20/17 19:00 Ovalocytes Few 12/20/17 19:00 Stomatocytes 1+ 12/12/17 05:41 Helmet Cells Not Reportable 12/20/17 19:00 Dukes-[place] Bodies Not Reportable 12/20/17 19:00 [place] Rings Not Reportable 12/20/17 19:00 Lucretia Cells Not Reportable 12/20/17 19:00 Bite Cells Not Reportable 12/20/17 19:00 Crenated Cell Not Reportable 12/20/17 19:00 Elliptocytes Not Reportable 12/20/17 19:00 Acanthocytes (Spur) Not Reportable 12/20/17 19:00 Rouleaux Not Reportable 12/20/17 19:00 Hemoglobin C Crystals Not Reportable 12/20/17 19:00 Schistocytes Not Reportable 12/20/17 19:00 Malaria parasites Not Reportable 12/20/17 19:00 [place] Bodies Not Reportable 12/20/17 19:00 Hem Pathologist Commnt No 12/20/17 19:00 PT 15.4 Sec. (12.2-14.9) H 12/14/17 05:11 INR 1.17 (0.87-1.13) H 12/14/17 05:11 APTT 33.8 Sec. (24.2-36.6) 11/26/17 06:29 POC ABG pH 7.505 (7.35-7.45) H 11/23/17 04:56 POC ABG pCO2 26.3 (35-45) L 11/23/17 04:56 POC ABG pO2 100 (80-105) 11/23/17 04:56 POC ABG HCO3 20.8 11/23/17 04:56 POC ABG Total CO2 22 11/23/17 04:56 POC ABG O2 Sat 98 11/23/17 04:56 POC ABG Base Excess -2 11/23/17 04:56 FiO2 30 % 11/23/17 04:56 Sodium 141 mmol/L (137-145) 12/30/17 04:46 Potassium 4.5 mmol/L (3.6-5.0) 12/30/17 04:46 Chloride 103.5 mmol/L (98-107) 12/30/17 04:46 Carbon Dioxide 23 mmol/L (22-30) 12/30/17 04:46 Anion Gap 19 mmol/L 12/30/17 04:46 BUN 16 mg/dL (9-20) 12/30/17 04:46 Creatinine 0.5 mg/dL (0.8-1.5) L 12/30/17 04:46 Estimated GFR > 60 ml/min 12/30/17 04:46 BUN/Creatinine Ratio 32 % 12/30/17 04:46 Glucose 90 mg/dL (75-100) 12/30/17 04:46 POC Glucose 104 (70-105) 12/30/17 05:48 Lactic Acid 1.80 mmol/L (0.7-2.0) 11/27/17 04:06 Calcium 8.2 mg/dL (8.4-10.2) L 12/30/17 04:46 Phosphorus 1.60 mg/dL (2.5-4.5) L 12/20/17 19:00 Magnesium 1.50 mg/dL (1.7-2.3) L 12/30/17 04:46 Total Bilirubin 0.30 mg/dL (0.1-1.2) 12/30/17 04:46 AST 37 units/L (5-40) 12/30/17 04:46 ALT 48 units/L (7-56) 12/30/17 04:46 Alkaline Phosphatase 288 units/L (35-129) H 12/30/17 04:46 Total Creatine Kinase 84 units/L (55-170) 11/12/17 20:03 CK-MB (CK-2) < 1.0 ng/mL (0.0-4.0) 11/12/17 20:03 CK-MB (CK-2) Rel Index 1.1 (0-4) 11/12/17 20:03 Troponin T 0.098 ng/mL (0.00-0.029) H 11/12/17 Unknown C-Reactive Protein 25.70 mg/dL (0.00-1.30) H 11/11/17 23:20 NT-Pro-B Natriuret Pep 792.4 pg/mL (0-900) 11/11/17 23:20 Total Protein 6.6 g/dL (6.3-8.2) 12/30/17 04:46 Albumin 2.4 g/dL (3.9-5) L 12/30/17 04:46 Albumin/Globulin Ratio 0.6 % 12/30/17 04:46 Triglycerides 86 mg/dL (2-149) 11/11/17 23:20 Cholesterol 82 mg/dL (50-199) 11/11/17 23:20 LDL Cholesterol Direct 42 mg/dL (50-130) L 11/11/17 23:20 HDL Cholesterol 24 mg/dL (40-59) L 11/11/17 23:20 Cholesterol/HDL Ratio 3.41 % 11/11/17 23:20 Lipase 30 units/L (13-60) 11/11/17 23:20 Urine Color Nicole (Yellow) 11/11/17 23:09 Urine Turbidity Cloudy (Clear) 11/11/17 23:09 Urine pH 5.0 (5.0-7.0) 11/11/17 23:09 Ur Specific [place] 1.025 (1.003-1.030) 11/11/17 23:09 Urine Protein 100 mg/dl mg/dL (Negative) 11/11/17 23:09 Urine Glucose (UA) 50 mg/dL (Negative) 11/11/17 23:09 Urine Ketones Neg mg/dL (Negative) 11/11/17 23:09 Urine Blood Neg (Negative) 11/11/17 23:09 Urine Nitrite Neg (Negative) 11/11/17 23:09 Urine Bilirubin Neg (Negative) 11/11/17 23:09 Urine Urobilinogen 4.0 mg/dL (<2.0) 11/11/17 23:09 Ur Leukocyte Esterase Neg (Negative) 11/11/17 23:09 Urine WBC (Auto) 5.0 /HPF (0.0-6.0) 11/11/17 23:09 Urine RBC (Auto) 4.0 /HPF (0.0-6.0) 11/11/17 23:09 Urine Bacteria (Auto) 3+ /HPF (Negative) 11/11/17 23:09 Amorphous Crystals 3+ 11/11/17 23:09 Hyaline Casts 76 /LPF 11/11/17 23:09 Urine Mucus 2+ /HPF 11/11/17 23:09 Urine Total Volume 1350 12/22/17 10:50 Urine Creatinine 55.8 mg/dL (0.1-20.0) H 12/22/17 10:50 Ur Creatinine 24 Hour 0.8 (0.8-2.8) 12/22/17 10:50 Hepatitis A IgM Ab Non-reactive (NonReactive) 11/22/17 19:45 Hep Bs Antigen Non-reactive (Negative) 11/22/17 19:45 Hep B Core IgM Ab Non-reactive (NonReactive) 11/22/17 19:45 Hepatitis C Antibody Reactive (NonReactive) A 11/22/17 19:45 Blood Type A POSITIVE 12/16/17 13:01 Antibody Screen Positive 12/16/17 13:01 SANTANA Antibody Screen Cancelled 12/16/17 13:01 Antibody Identification Cold Antibody 12/16/17 13:01 Crossmatch See Detail 12/16/17 13:01 Crossmatch Prewarmed See Detail 12/16/17 13:01
--- NOTE | 2017-12-30 14:38 | Progress Note ---
Assessment and Plan 67 y/o male with acute on chronic respiratory failure, now trached, with peritonitis from dislodged peg tube s/p 2 IR drains now with NGT feedings. No new recs for today. Please see below. 1. Trach Care. Trach is permanent as patient cannot clear his secretions himself 2. Off IV abx therapy now 3. Electrolytes per primary and renal, now off HD 4. Will continue to follow along with you. Subjective Date of service: 12/30/17 Principal diagnosis: Acute hypoxic respiratory failure, s/p Trach Interval history: No acute events. Pulm status is stable. Objective Vital Signs - 12hr 12/30/17 12/30/17 12/30/17 03:00 04:00 04:01 Temperature 97.4 F L Pulse Rate 103 H 103 H Pulse Rate [ 108 H Right From Monitor] Respiratory 27 H 26 H Rate Blood Pressure 153/86 153/86 O2 Sat by Pulse 98 98 97 Oximetry O2 Sat by Pulse Oximetry [ Assessment] 12/30/17 12/30/17 12/30/17 05:00 06:00 07:00 Temperature Pulse Rate 104 H 99 H 99 H Pulse Rate [ Right From Monitor] Respiratory 25 H 21 24 Rate Blood Pressure 150/83 161/83 147/78 O2 Sat by Pulse 97 99 98 Oximetry O2 Sat by Pulse Oximetry [ Assessment] 12/30/17 12/30/17 12/30/17 08:00 08:11 09:44 Temperature 98.3 F Pulse Rate 104 H Pulse Rate [ Right From Monitor] Respiratory Rate Blood Pressure 136/76 O2 Sat by Pulse 98 Oximetry O2 Sat by Pulse 98 Oximetry [ Assessment] Constitutional: no acute distress, alert Eyes: non-icteric ENT: oropharynx moist Neck: supple (trach in position) Effort: normal Ascultation: Bilateral: clear, rales (few bilaterally), rhonchi (mild bilateral) , other (coarse BS bilaterally) Cardiovascular: regular rate and rhythm Gastrointestinal: normoactive bowel sounds, soft, non-tender, other (drains in place) Integumentary: normal Extremities: no cyanosis, pink and warm, edema (2+ bilateral LE edema) Neurologic: other (L hemiparesis,awake, response to my voice) Psychiatric: other (unable to assess) CBC and BMP: 12/28/17 04:59 12/30/17 04:46 ABG, PT/INR, D-dimer: ABG POC ABG pH 7.505 (7.35-7.45) H 11/23/17 04:56 POC ABG pCO2 26.3 (35-45) L 11/23/17 04:56 POC ABG pO2 100 (80-105) 11/23/17 04:56 POC ABG HCO3 20.8 11/23/17 04:56 POC ABG Total CO2 22 11/23/17 04:56 POC ABG O2 Sat 98 11/23/17 04:56 PT/INR, D-dimer PT 15.4 Sec. (12.2-14.9) H 12/14/17 05:11 INR 1.17 (0.87-1.13) H 12/14/17 05:11 Abnormal lab findings: Abnormal Labs 11/11/17 11/11/17 11/11/17 23:18 23:20 23:20 WBC RBC Hgb 10.4 L Hct 32.6 L D MCV MCH 27 L MCHC RDW 17.4 H Plt Count 105 L Lymph % (Auto) [place] % (Auto) Eos % (Auto) Lymph # [place] # Eos # Seg Neutrophils % Seg Neuts % (Manual) Lymphocytes % (Manual) 8.0 L Monocytes % (Manual) Eosinophils % (Manual) Nucleated RBC % 1.0 H Seg Neutrophils # Seg Neutrophils # Man Lymphocytes # (Manual) 0.7 L Monocytes # (Manual) Eosinophils # (Manual) PT INR POC ABG pH 7.550 H POC ABG pCO2 31.6 L POC ABG pO2 Sodium 146 H Potassium Chloride Carbon Dioxide BUN 26 H Creatinine 1.7 H D Glucose 133 H POC Glucose Lactic Acid Calcium Phosphorus Magnesium AST ALT Alkaline Phosphatase Troponin T 0.117 H* C-Reactive Protein Total Protein Albumin 2.5 L LDL Cholesterol Direct 42 L HDL Cholesterol 24 L Urine Creatinine Hepatitis C Antibody Crossmatch Crossmatch P[place]armed 11/11/17 11/12/17 11/12/17 23:20 00:23 00:23 WBC RBC Hgb Hct MCV MCH MCHC RDW Plt Count Lymph % (Auto) [place] % (Auto) Eos % (Auto) Lymph # [place] # Eos # Seg Neutrophils % Seg Neuts % (Manual) Lymphocytes % (Manual) Monocytes % (Manual) Eosinophils % (Manual) Nucleated RBC % Seg Neutrophils # Seg Neutrophils # Man Lymphocytes # (Manual) Monocytes # (Manual) Eosinophils # (Manual) PT 16.7 H INR 1.28 H POC ABG pH POC ABG pCO2 POC ABG pO2 Sodium Potassium Chloride Carbon Dioxide BUN Creatinine Glucose POC Glucose Lactic Acid 3.20 H* Calcium Phosphorus Magnesium AST ALT Alkaline Phosphatase Troponin T C-Reactive Protein 25.70 H Total Protein Albumin LDL Cholesterol Direct HDL Cholesterol Urine Creatinine Hepatitis C Antibody Crossmatch Crossmatch P[place]armed 11/12/17 11/12/17 11/12/17 00:46 01:27 01:27 WBC RBC Hgb Hct MCV MCH MCHC RDW Plt Count Lymph % (Auto) [place] % (Auto) Eos % (Auto) Lymph # [place] # Eos # Seg Neutrophils % Seg Neuts % (Manual) Lymphocytes % (Manual) Monocytes % (Manual) Eosinophils % (Manual) Nucleated RBC % Seg Neutrophils # Seg Neutrophils # Man Lymphocytes # (Manual) Monocytes # (Manual) Eosinophils # (Manual) PT INR POC ABG pH 7.495 H POC ABG pCO2 32.0 L POC ABG pO2 64 L Sodium Potassium Chloride Carbon Dioxide BUN Creatinine Glucose POC Glucose Lactic Acid 3.70 H* Calcium Phosphorus Magnesium AST ALT Alkaline Phosphatase Troponin T 0.096 H C-Reactive Protein Total Protein Albumin LDL Cholesterol Direct HDL Cholesterol Urine Creatinine Hepatitis C Antibody Crossmatch Crossmatch P[place]armed 11/12/17 11/12/17 11/12/17 03:21 04:50 06:27 WBC RBC Hgb Hct MCV MCH MCHC RDW Plt Count Lymph % (Auto) [place] % (Auto) Eos % (Auto) Lymph # [place] # Eos # Seg Neutrophils % Seg Neuts % (Manual) Lymphocytes % (Manual) Monocytes % (Manual) Eosinophils % (Manual) Nucleated RBC % Seg Neutrophils # Seg Neutrophils # Man Lymphocytes # (Manual) Monocytes # (Manual) Eosinophils # (Manual) PT INR POC ABG pH POC ABG pCO2 POC ABG pO2 109 H Sodium Potassium Chloride Carbon Dioxide BUN Creatinine Glucose POC Glucose Lactic Acid 3.80 H* 2.20 H* Calcium Phosphorus Magnesium AST ALT Alkaline Phosphatase Troponin T C-Reactive Protein Total Protein Albumin LDL Cholesterol Direct HDL Cholesterol Urine Creatinine Hepatitis C Antibody Crossmatch Crossmatch P[place]armed 11/12/17 11/12/17 11/12/17 09:24 09:24 09:24 WBC RBC Hgb 10.4 L Hct 33.4 L MCV MCH MCHC RDW Plt Count Lymph % (Auto) [place] % (Auto) Eos % (Auto) Lymph # [place] # Eos # Seg Neutrophils % Seg Neuts % (Manual) Lymphocytes % (Manual) Monocytes % (Manual) Eosinophils % (Manual) Nucleated RBC % Seg Neutrophils # Seg Neutrophils # Man Lymphocytes # (Manual) Monocytes # (Manual) Eosinophils # (Manual) PT INR POC ABG pH POC ABG pCO2 POC ABG pO2 Sodium Potassium Chloride Carbon Dioxide BUN Creatinine Glucose POC Glucose Lactic Acid 2.90 H* Calcium Phosphorus Magnesium AST ALT Alkaline Phosphatase Troponin T 0.091 H C-Reactive Protein Total Protein Albumin LDL Cholesterol Direct HDL Cholesterol Urine Creatinine Hepatitis C Antibody Crossmatch Crossmatch P[place]armed 11/12/17 11/12/17 11/12/17 12:56 20:03 Unknown WBC RBC Hgb Hct MCV MCH MCHC RDW Plt Count Lymph % (Auto) [place] % (Auto) Eos % (Auto) Lymph # [place] # Eos # Seg Neutrophils % Seg Neuts % (Manual) Lymphocytes % (Manual) Monocytes % (Manual) Eosinophils % (Manual) Nucleated RBC % Seg Neutrophils # Seg Neutrophils # Man Lymphocytes # (Manual) Monocytes # (Manual) Eosinophils # (Manual) PT INR POC ABG pH POC ABG pCO2 POC ABG pO2 Sodium Potassium Chloride Carbon Dioxide BUN Creatinine Glucose POC Glucose Lactic Acid 3.60 H* Calcium Phosphorus Magnesium AST ALT Alkaline Phosphatase Troponin T 0.102 H* 0.156 H* D C-Reactive Protein Total Protein Albumin LDL Cholesterol Direct HDL Cholesterol Urine Creatinine Hepatitis C Antibody Crossmatch Crossmatch [place]armed 11/12/17 11/13/17 11/13/17 Unknown 04:50 04:50 WBC 12.2 H RBC 3.51 L Hgb 9.3 L Hct 30.1 L MCV MCH 26 L MCHC 31 L RDW 18.0 H Plt Count 128 L Lymph % (Auto) 8.6 L [place] % (Auto) 11.1 H Eos % (Auto) Lymph # 1.1 L [place] # 1.4 H Eos # Seg Neutrophils % 80.1 H Seg Neuts % (Manual) Lymphocytes % (Manual) Monocytes % (Manual) Eosinophils % (Manual) Nucleated RBC % Seg Neutrophils # 9.8 H Seg Neutrophils # Man Lymphocytes # (Manual) Monocytes # (Manual) Eosinophils # (Manual) PT INR POC ABG pH POC ABG pCO2 POC ABG pO2 Sodium 149 H Potassium 5.1 H Chloride 114.4 H Carbon Dioxide 18 L BUN 52 H Creatinine 3.3 H D Glucose 129 H POC Glucose Lactic Acid Calcium 7.9 L Phosphorus Magnesium AST ALT Alkaline Phosphatase Troponin T 0.098 H C-Reactive Protein Total Protein Albumin LDL Cholesterol Direct HDL Cholesterol Urine Creatinine Hepatitis C Antibody Crossmatch Crossmatch P[place]armed 11/13/17 11/13/17 11/14/17 04:51 09:34 04:21 WBC RBC Hgb Hct MCV MCH MCHC RDW Plt Count Lymph % (Auto) [place] % (Auto) Eos % (Auto) Lymph # [place] # Eos # Seg Neutrophils % Seg Neuts % (Manual) Lymphocytes % (Manual) Monocytes % (Manual) Eosinophils % (Manual) Nucleated RBC % Seg Neutrophils # Seg Neutrophils # Man Lymphocytes # (Manual) Monocytes # (Manual) Eosinophils # (Manual) PT INR POC ABG pH POC ABG pCO2 30.1 L 29.8 L POC ABG pO2 135 H Sodium Potassium Chloride Carbon Dioxide BUN Creatinine Glucose POC Glucose Lactic Acid 2.10 H* Calcium Phosphorus Magnesium AST ALT Alkaline Phosphatase Troponin T C-Reactive Protein Total Protein Albumin LDL Cholesterol Direct HDL Cholesterol Urine Creatinine Hepatitis C Antibody Crossmatch Crossmatch P[place]armed 11/15/17 11/15/17 11/16/17 04:52 15:50 05:17 WBC RBC Hgb Hct MCV MCH MCHC RDW Plt Count Lymph % (Auto) [place] % (Auto) Eos % (Auto) Lymph # [place] # Eos # Seg Neutrophils % Seg Neuts % (Manual) Lymphocytes % (Manual) Monocytes % (Manual) Eosinophils % (Manual) Nucleated RBC % Seg Neutrophils # Seg Neutrophils # Man Lymphocytes # (Manual) Monocytes # (Manual) Eosinophils # (Manual) PT INR POC ABG pH POC ABG pCO2 29.5 L 31.5 L POC ABG pO2 115 H 122 H Sodium 154 H Potassium Chloride 117.9 H Carbon Dioxide 19 L BUN 87 H Creatinine 4.1 H Glucose POC Glucose Lactic Acid Calcium 8.1 L Phosphorus Magnesium AST ALT Alkaline Phosphatase Troponin T C-Reactive Protein Total Protein Albumin LDL Cholesterol Direct HDL Cholesterol Urine Creatinine Hepatitis C Antibody Crossmatch Crossmatch [place]armed 11/16/17 11/17/17 11/17/17 16:37 04:07 10:00 WBC 14.7 H RBC 3.23 L Hgb 8.3 L Hct 28.1 L MCV MCH 26 L MCHC 30 L RDW 18.8 H Plt Count Lymph % (Auto) [place] % (Auto) Eos % (Auto) Lymph # [place] # Eos # Seg Neutrophils % Seg Neuts % (Manual) 75 H Lymphocytes % (Manual) 8.0 L Monocytes % (Manual) Eosinophils % (Manual) Nucleated RBC % 1.0 H Seg Neutrophils # Seg Neutrophils # Man 11.0 H Lymphocytes # (Manual) Monocytes # (Manual) 0.9 H Eosinophils # (Manual) PT INR POC ABG pH POC ABG pCO2 POC ABG pO2 Sodium 153 H 155 H Potassium Chloride 117.3 H 119.4 H Carbon Dioxide 19 L 20 L BUN 90 H 89 H Creatinine 3.9 H 3.6 H Glucose 111 H 115 H POC Glucose Lactic Acid Calcium 8.1 L 8.0 L Phosphorus Magnesium AST ALT Alkaline Phosphatase Troponin T C-Reactive Protein Total Protein Albumin LDL Cholesterol Direct HDL Cholesterol Urine Creatinine Hepatitis C Antibody Crossmatch Crossmatch [place]armed 11/18/17 11/18/17 11/18/17 04:34 04:34 04:34 WBC 15.5 H RBC 3.13 L Hgb 8.1 L Hct 26.3 L MCV MCH 26 L MCHC 31 L RDW 18.6 H Plt Count Lymph % (Auto) [place] % (Auto) Eos % (Auto) Lymph # [place] # Eos # Seg Neutrophils % Seg Neuts % (Manual) 81.0 H Lymphocytes % (Manual) 7.0 L Monocytes % (Manual) Eosinophils % (Manual) Nucleated RBC % 1.0 H Seg Neutrophils # Seg Neutrophils # Man 12.6 H Lymphocytes # (Manual) 1.1 L Monocytes # (Manual) Eosinophils # (Manual) PT 16.7 H INR 1.30 H POC ABG pH POC ABG pCO2 POC ABG pO2 Sodium 155 H Potassium 3.2 L Chloride 121.0 H Carbon Dioxide 20 L BUN 74 H Creatinine 2.9 H Glucose 126 H POC Glucose Lactic Acid Calcium 7.9 L Phosphorus Magnesium AST ALT Alkaline Phosphatase Troponin T C-Reactive Protein Total Protein Albumin LDL Cholesterol Direct HDL Cholesterol Urine Creatinine Hepatitis C Antibody Crossmatch Crossmatch [place]armed 11/19/17 11/19/17 11/20/17 04:44 04:44 00:38 WBC 19.0 H 22.2 H RBC 3.20 L 3.17 L Hgb 8.4 L 7.9 L Hct 27.9 L 26.4 L MCV 83 L MCH 26 L 25 L MCHC 30 L 30 L RDW 19.1 H 18.9 H Plt Count Lymph % (Auto) [place] % (Auto) Eos % (Auto) Lymph # [place] # Eos # Seg Neutrophils % Seg Neuts % (Manual) 83.0 H Lymphocytes % (Manual) 3.0 L Monocytes % (Manual) 9.0 H Eosinophils % (Manual) Nucleated RBC % Seg Neutrophils # Seg Neutrophils # Man 18.4 H Lymphocytes # (Manual) 0.7 L Monocytes # (Manual) 2.0 H Eosinophils # (Manual) PT INR POC ABG pH POC ABG pCO2 POC ABG pO2 Sodium 152 H Potassium Chloride 117.1 H Carbon Dioxide 17 L BUN 66 H Creatinine 2.8 H Glucose 119 H POC Glucose Lactic Acid Calcium 7.8 L Phosphorus Magnesium 2.70 H AST ALT Alkaline Phosphatase Troponin T C-Reactive Protein Total Protein Albumin LDL Cholesterol Direct HDL Cholesterol Urine Creatinine Hepatitis C Antibody Crossmatch Crossmatch [place]armed 11/20/17 11/20/17 11/20/17 03:29 04:48 13:38 WBC RBC Hgb Hct MCV MCH MCHC RDW Plt Count Lymph % (Auto) [place] % (Auto) Eos % (Auto) Lymph # [place] # Eos # Seg Neutrophils % Seg Neuts % (Manual) Lymphocytes % (Manual) Monocytes % (Manual) Eosinophils % (Manual) Nucleated RBC % Seg Neutrophils # Seg Neutrophils # Man Lymphocytes # (Manual) Monocytes # (Manual) Eosinophils # (Manual) PT INR POC ABG pH POC ABG pCO2 29.4 L POC ABG pO2 Sodium 148 H Potassium 3.4 L Chloride 113.7 H Carbon Dioxide 18 L BUN 59 H Creatinine 2.7 H Glucose 113 H POC Glucose 128 H Lactic Acid Calcium 7.8 L Phosphorus Magnesium AST ALT Alkaline Phosphatase Troponin T C-Reactive Protein Total Protein Albumin LDL Cholesterol Direct HDL Cholesterol Urine Creatinine Hepatitis C Antibody Crossmatch Crossmatch [place]armed 11/20/17 11/20/17 11/21/17 17:38 23:40 00:13 WBC RBC Hgb 8.4 L Hct 28.0 L MCV MCH MCHC RDW Plt Count Lymph % (Auto) [place] % (Auto) Eos % (Auto) Lymph # [place] # Eos # Seg Neutrophils % Seg Neuts % (Manual) Lymphocytes % (Manual) Monocytes % (Manual) Eosinophils % (Manual) Nucleated RBC % Seg Neutrophils # Seg Neutrophils # Man Lymphocytes # (Manual) Monocytes # (Manual) Eosinophils # (Manual) PT INR POC ABG pH POC ABG pCO2 POC ABG pO2 Sodium Potassium Chloride Carbon Dioxide BUN Creatinine Glucose POC Glucose 115 H 145 H Lactic Acid Calcium Phosphorus Magnesium AST ALT Alkaline Phosphatase Troponin T C-Reactive Protein Total Protein Albumin LDL Cholesterol Direct HDL Cholesterol Urine Creatinine Hepatitis C Antibody Crossmatch Crossmatch [place]armed 11/21/17 11/21/17 11/21/17 04:30 04:30 04:58 WBC 21.0 H RBC Hgb 9.6 L Hct 32.7 L MCV MCH 25 L MCHC 29 L RDW 19.7 H Plt Count 746 H Lymph % (Auto) [place] % (Auto) Eos % (Auto) Lymph # [place] # Eos # Seg Neutrophils % Seg Neuts % (Manual) Lymphocytes % (Manual) Monocytes % (Manual) Eosinophils % (Manual) Nucleated RBC % Seg Neutrophils # Seg Neutrophils # Man Lymphocytes # (Manual) Monocytes # (Manual) Eosinophils # (Manual) PT INR POC ABG pH POC ABG pCO2 POC ABG pO2 Sodium Potassium Chloride 109.4 H Carbon Dioxide 14 L BUN 59 H Creatinine 3.0 H Glucose 137 H POC Glucose 132 H Lactic Acid Calcium 7.6 L Phosphorus Magnesium AST ALT Alkaline Phosphatase Troponin T C-Reactive Protein Total Protein Albumin LDL Cholesterol Direct HDL Cholesterol Urine Creatinine Hepatitis C Antibody Crossmatch Crossmatch [place]armed 11/21/17 11/21/17 11/21/17 06:30 13:43 14:17 WBC 38.2 H RBC Hgb 9.0 L Hct 32.3 L MCV MCH 25 L MCHC 28 L RDW 20.0 H Plt Count 766 H Lymph % (Auto) [place] % (Auto) Eos % (Auto) Lymph # [place] # Eos # Seg Neutrophils % Seg Neuts % (Manual) 85.0 H Lymphocytes % (Manual) 1.0 L Monocytes % (Manual) Eosinophils % (Manual) Nucleated RBC % 2.0 H Seg Neutrophils # Seg Neutrophils # Man 32.5 H Lymphocytes # (Manual) 0.4 L Monocytes # (Manual) 2.3 H Eosinophils # (Manual) PT INR POC ABG pH POC ABG pCO2 18.6 L POC ABG pO2 121 H Sodium 146 H Potassium Chloride 110.9 H Carbon Dioxide 11 L BUN 62 H Creatinine 4.0 H Glucose 64 L POC Glucose Lactic Acid Calcium 7.6 L Phosphorus Magnesium AST ALT Alkaline Phosphatase Troponin T C-Reactive Protein Total Protein Albumin LDL Cholesterol Direct HDL Cholesterol Urine Creatinine Hepatitis C Antibody Crossmatch Crossmatch [place]armed 11/21/17 11/21/17 11/22/17 14:17 19:09 00:05 WBC RBC Hgb Hct MCV MCH MCHC RDW Plt Count Lymph % (Auto) [place] % (Auto) Eos % (Auto) Lymph # [place] # Eos # Seg Neutrophils % Seg Neuts % (Manual) Lymphocytes % (Manual) Monocytes % (Manual) Eosinophils % (Manual) Nucleated RBC % Seg Neutrophils # Seg Neutrophils # Man Lymphocytes # (Manual) Monocytes # (Manual) Eosinophils # (Manual) PT INR POC ABG pH POC ABG pCO2 20.0 L POC ABG pO2 Sodium Potassium Chloride Carbon Dioxide BUN Creatinine Glucose POC Glucose 127 H Lactic Acid 7.70 H* Calcium Phosphorus Magnesium AST ALT Alkaline Phosphatase Troponin T C-Reactive Protein Total Protein Albumin LDL Cholesterol Direct HDL Cholesterol Urine Creatinine Hepatitis C Antibody Crossmatch Crossmatch [place]armed 11/22/17 11/22/17 11/22/17 03:53 06:00 07:25 WBC RBC Hgb Hct MCV MCH MCHC RDW Plt Count Lymph % (Auto) [place] % (Auto) Eos % (Auto) Lymph # [place] # Eos # Seg Neutrophils % Seg Neuts % (Manual) Lymphocytes % (Manual) Monocytes % (Manual) Eosinophils % (Manual) Nucleated RBC % Seg Neutrophils # Seg Neutrophils # Man Lymphocytes # (Manual) Monocytes # (Manual) Eosinophils # (Manual) PT INR POC ABG pH POC ABG pCO2 22.2 L POC ABG pO2 Sodium 147 H Potassium Chloride 111.9 H Carbon Dioxide 16 L BUN 72 H Creatinine 5.1 H Glucose 181 H POC Glucose 180 H Lactic Acid Calcium 7.1 L Phosphorus Magnesium AST ALT Alkaline Phosphatase Troponin T C-Reactive Protein Total Protein Albumin LDL Cholesterol Direct HDL Cholesterol Urine Creatinine Hepatitis C Antibody Crossmatch Crossmatch [place]armed 11/22/17 11/22/17 11/22/17 07:25 07:25 12:05 WBC 31.4 H RBC 3.22 L Hgb 8.0 L Hct 26.7 L MCV 83 L MCH 25 L MCHC 30 L RDW 19.4 H Plt Count 602 H Lymph % (Auto) [place] % (Auto) Eos % (Auto) Lymph # [place] # Eos # Seg Neutrophils % Seg Neuts % (Manual) Lymphocytes % (Manual) Monocytes % (Manual) Eosinophils % (Manual) Nucleated RBC % Seg Neutrophils # Seg Neutrophils # Man Lymphocytes # (Manual) Monocytes # (Manual) Eosinophils # (Manual) PT INR POC ABG pH POC ABG pCO2 POC ABG pO2 Sodium Potassium Chloride Carbon Dioxide BUN Creatinine Glucose POC Glucose 182 H Lactic Acid 5.00 H* Calcium Phosphorus Magnesium AST ALT Alkaline Phosphatase Troponin T C-Reactive Protein Total Protein Albumin LDL Cholesterol Direct HDL Cholesterol Urine Creatinine Hepatitis C Antibody Crossmatch Crossmatch [place]armed 11/22/17 11/23/17 11/23/17 19:45 01:28 04:56 WBC RBC Hgb Hct MCV MCH MCHC RDW Plt Count Lymph % (Auto) [place] % (Auto) Eos % (Auto) Lymph # [place] # Eos # Seg Neutrophils % Seg Neuts % (Manual) Lymphocytes % (Manual) Monocytes % (Manual) Eosinophils % (Manual) Nucleated RBC % Seg Neutrophils # Seg Neutrophils # Man Lymphocytes # (Manual) Monocytes # (Manual) Eosinophils # (Manual) PT INR POC ABG pH 7.505 H POC ABG pCO2 26.3 L POC ABG pO2 Sodium Potassium Chloride Carbon Dioxide BUN Creatinine Glucose POC Glucose 165 H Lactic Acid Calcium Phosphorus Magnesium AST ALT Alkaline Phosphatase Troponin T C-Reactive Protein Total Protein Albumin LDL Cholesterol Direct HDL Cholesterol Urine Creatinine Hepatitis C Antibody Reactive A Crossmatch Crossmatch [place]armed 11/23/17 11/23/17 11/23/17 07:05 12:32 17:53 WBC RBC Hgb Hct MCV MCH MCHC RDW Plt Count Lymph % (Auto) [place] % (Auto) Eos % (Auto) Lymph # [place] # Eos # Seg Neutrophils % Seg Neuts % (Manual) Lymphocytes % (Manual) Monocytes % (Manual) Eosinophils % (Manual) Nucleated RBC % Seg Neutrophils # Seg Neutrophils # Man Lymphocytes # (Manual) Monocytes # (Manual) Eosinophils # (Manual) PT INR POC ABG pH POC ABG pCO2 POC ABG pO2 Sodium Potassium Chloride Carbon Dioxide 18 L BUN 61 H Creatinine 4.2 H Glucose 153 H POC Glucose 138 H 173 H Lactic Acid Calcium 7.5 L Phosphorus Magnesium AST ALT Alkaline Phosphatase Troponin T C-Reactive Protein Total Protein Albumin LDL Cholesterol Direct HDL Cholesterol Urine Creatinine Hepatitis C Antibody Crossmatch Crossmatch [place]armed 11/23/17 11/24/17 11/24/17 23:41 05:42 05:42 WBC 21.5 H RBC 2.48 L Hgb 6.2 L Hct 20.3 L D MCV 82 L MCH 25 L MCHC 31 L RDW 18.9 H Plt Count Lymph % (Auto) [place] % (Auto) Eos % (Auto) Lymph # [place] # Eos # Seg Neutrophils % Seg Neuts % (Manual) 94.0 H Lymphocytes % (Manual) 3.0 L Monocytes % (Manual) Eosinophils % (Manual) Nucleated RBC % Seg Neutrophils # Seg Neutrophils # Man 20.2 H Lymphocytes # (Manual) 0.6 L Monocytes # (Manual) Eosinophils # (Manual) PT INR POC ABG pH POC ABG pCO2 POC ABG pO2 Sodium 149 H Potassium 2.8 L* D Chloride 113.9 H Carbon Dioxide 19 L BUN 31 H Creatinine 2.3 H Glucose 103 H POC Glucose 133 H Lactic Acid Calcium 5.3 L* D Phosphorus Magnesium 1.30 L AST ALT Alkaline Phosphatase Troponin T C-Reactive Protein Total Protein Albumin LDL Cholesterol Direct HDL Cholesterol Urine Creatinine Hepatitis C Antibody Crossmatch Crossmatch [place]armed 11/24/17 11/24/17 11/24/17 05:42 08:27 08:27 WBC RBC Hgb Hct MCV MCH MCHC RDW Plt Count Lymph % (Auto) [place] % (Auto) Eos % (Auto) Lymph # [place] # Eos # Seg Neutrophils % Seg Neuts % (Manual) Lymphocytes % (Manual) Monocytes % (Manual) Eosinophils % (Manual) Nucleated RBC % Seg Neutrophils # Seg Neutrophils # Man Lymphocytes # (Manual) Monocytes # (Manual) Eosinophils # (Manual) PT INR POC ABG pH POC ABG pCO2 POC ABG pO2 Sodium Potassium Chloride Carbon Dioxide BUN Creatinine Glucose POC Glucose Lactic Acid 5.40 H* 5.20 H* Calcium Phosphorus Magnesium AST ALT Alkaline Phosphatase Troponin T C-Reactive Protein Total Protein Albumin LDL Cholesterol Direct HDL Cholesterol Urine Creatinine Hepatitis C Antibody Crossmatch See Detail Crossmatch P[place]armed 11/24/17 11/24/17 11/24/17 12:13 17:22 21:53 WBC 23.0 H RBC 3.32 L Hgb 8.8 L Hct 27.1 L D MCV 82 L MCH 26 L MCHC RDW 17.3 H Plt Count Lymph % (Auto) [place] % (Auto) Eos % (Auto) Lymph # [place] # Eos # Seg Neutrophils % Seg Neuts % (Manual) Lymphocytes % (Manual) Monocytes % (Manual) Eosinophils % (Manual) Nucleated RBC % Seg Neutrophils # Seg Neutrophils # Man Lymphocytes # (Manual) Monocytes # (Manual) Eosinophils # (Manual) PT INR POC ABG pH POC ABG pCO2 POC ABG pO2 Sodium Potassium Chloride Carbon Dioxide BUN Creatinine Glucose POC Glucose 138 H 180 H Lactic Acid Calcium Phosphorus Magnesium AST ALT Alkaline Phosphatase Troponin T C-Reactive Protein Total Protein Albumin LDL Cholesterol Direct HDL Cholesterol Urine Creatinine Hepatitis C Antibody Crossmatch Crossmatch [place]armed 11/24/17 11/24/17 11/25/17 21:53 23:28 04:19 WBC RBC Hgb Hct MCV MCH MCHC RDW Plt Count Lymph % (Auto) [place] % (Auto) Eos % (Auto) Lymph # [place] # Eos # Seg Neutrophils % Seg Neuts % (Manual) Lymphocytes % (Manual) Monocytes % (Manual) Eosinophils % (Manual) Nucleated RBC % Seg Neutrophils # Seg Neutrophils # Man Lymphocytes # (Manual) Monocytes # (Manual) Eosinophils # (Manual) PT INR POC ABG pH POC ABG pCO2 POC ABG pO2 Sodium Potassium Chloride 96.3 L Carbon Dioxide BUN 28 H 31 H Creatinine 2.3 H 2.6 H Glucose 125 H 101 H POC Glucose 111 H Lactic Acid Calcium 7.5 L D 7.4 L Phosphorus Magnesium AST 170 H ALT 179 H Alkaline Phosphatase 175 H Troponin T C-Reactive Protein Total Protein 5.5 L Albumin 1.8 L LDL Cholesterol Direct HDL Cholesterol Urine Creatinine Hepatitis C Antibody Crossmatch Crossmatch P[place]armed 11/25/17 11/25/17 11/26/17 04:19 04:19 06:29 WBC 22.5 H RBC 3.48 L Hgb 9.1 L Hct 28.3 L MCV 81 L MCH 26 L MCHC RDW 17.4 H Plt Count Lymph % (Auto) [place] % (Auto) Eos % (Auto) Lymph # [place] # Eos # Seg Neutrophils % Seg Neuts % (Manual) Lymphocytes % (Manual) Monocytes % (Manual) Eosinophils % (Manual) Nucleated RBC % Seg Neutrophils # Seg Neutrophils # Man Lymphocytes # (Manual) Monocytes # (Manual) Eosinophils # (Manual) PT 23.6 H INR 1.96 H POC ABG pH POC ABG pCO2 POC ABG pO2 Sodium Potassium Chloride Carbon Dioxide BUN 31 H Creatinine 2.6 H Glucose 101 H POC Glucose Lactic Acid Calcium 7.5 L Phosphorus Magnesium AST ALT Alkaline Phosphatase Troponin T C-Reactive Protein Total Protein Albumin LDL Cholesterol Direct HDL Cholesterol Urine Creatinine Hepatitis C Antibody Crossmatch Crossmatch P[place]armed 11/26/17 11/27/17 11/27/17 06:34 04:06 04:06 WBC 11.3 H RBC 3.13 L Hgb 8.4 L Hct 25.8 L MCV 82 L MCH 27 L MCHC RDW 17.7 H Plt Count Lymph % (Auto) 7.4 L [place] % (Auto) Eos % (Auto) Lymph # 0.8 L [place] # Eos # Seg Neutrophils % 83.7 H Seg Neuts % (Manual) Lymphocytes % (Manual) Monocytes % (Manual) Eosinophils % (Manual) Nucleated RBC % Seg Neutrophils # 9.5 H Seg Neutrophils # Man Lymphocytes # (Manual) Monocytes # (Manual) Eosinophils # (Manual) PT INR POC ABG pH POC ABG pCO2 POC ABG pO2 Sodium Potassium Chloride 97.9 L Carbon Dioxide BUN 43 H 29 H Creatinine 3.5 H 2.9 H Glucose POC Glucose Lactic Acid Calcium 7.5 L 8.1 L Phosphorus Magnesium AST ALT Alkaline Phosphatase Troponin T C-Reactive Protein Total Protein Albumin LDL Cholesterol Direct HDL Cholesterol Urine Creatinine Hepatitis C Antibody Crossmatch Crossmatch [facility] 11/27/17 11/28/17 11/28/17 18:11 00:16 03:50 WBC RBC Hgb Hct MCV MCH MCHC RDW Plt Count Lymph % (Auto) [place] % (Auto) Eos % (Auto) Lymph # [place] # Eos # Seg Neutrophils % Seg Neuts % (Manual) Lymphocytes % (Manual) Monocytes % (Manual) Eosinophils % (Manual) Nucleated RBC % Seg Neutrophils # Seg Neutrophils # Man Lymphocytes # (Manual) Monocytes # (Manual) Eosinophils # (Manual) PT INR POC ABG pH POC ABG pCO2 POC ABG pO2 Sodium Potassium Chloride Carbon Dioxide BUN 39 H Creatinine 4.1 H Glucose 108 H POC Glucose 110 H 124 H Lactic Acid Calcium 7.9 L Phosphorus Magnesium AST ALT Alkaline Phosphatase Troponin T C-Reactive Protein Total Protein Albumin LDL Cholesterol Direct HDL Cholesterol Urine Creatinine Hepatitis C Antibody Crossmatch Crossmatch [facility] 11/28/17 11/28/17 11/28/17 05:03 11:36 17:42 WBC RBC Hgb Hct MCV MCH MCHC RDW Plt Count Lymph % (Auto) [place] % (Auto) Eos % (Auto) Lymph # [place] # Eos # Seg Neutrophils % Seg Neuts % (Manual) Lymphocytes % (Manual) Monocytes % (Manual) Eosinophils % (Manual) Nucleated RBC % Seg Neutrophils # Seg Neutrophils # Man Lymphocytes # (Manual) Monocytes # (Manual) Eosinophils # (Manual) PT INR POC ABG pH POC ABG pCO2 POC ABG pO2 Sodium Potassium Chloride Carbon Dioxide BUN Creatinine Glucose POC Glucose 134 H 114 H 119 H Lactic Acid Calcium Phosphorus Magnesium AST ALT Alkaline Phosphatase Troponin T C-Reactive Protein Total Protein Albumin LDL Cholesterol Direct HDL Cholesterol Urine Creatinine Hepatitis C Antibody Crossmatch Crossmatch [facility] 11/29/17 11/29/17 11/29/17 00:22 05:25 05:25 WBC 12.3 H RBC 3.34 L Hgb 8.6 L Hct 27.3 L MCV 82 L MCH 26 L MCHC RDW 18.5 H Plt Count Lymph % (Auto) 3.7 L [place] % (Auto) 7.7 H Eos % (Auto) Lymph # 0.5 L [place] # 1.0 H Eos # Seg Neutrophils % 86.5 H Seg Neuts % (Manual) Lymphocytes % (Manual) Monocytes % (Manual) Eosinophils % (Manual) Nucleated RBC % Seg Neutrophils # 10.7 H Seg Neutrophils # Man Lymphocytes # (Manual) Monocytes # (Manual) Eosinophils # (Manual) PT INR POC ABG pH POC ABG pCO2 POC ABG pO2 Sodium Potassium Chloride Carbon Dioxide BUN 29 H Creatinine 3.5 H Glucose 109 H POC Glucose 137 H Lactic Acid Calcium 7.8 L Phosphorus Magnesium AST ALT Alkaline Phosphatase Troponin T C-Reactive Protein Total Protein Albumin LDL Cholesterol Direct HDL Cholesterol Urine Creatinine Hepatitis C Antibody Crossmatch Crossmatch [facility] 11/29/17 11/30/17 11/30/17 05:26 00:26 04:17 WBC RBC Hgb Hct MCV MCH MCHC RDW Plt Count Lymph % (Auto) [place] % (Auto) Eos % (Auto) Lymph # [place] # Eos # Seg Neutrophils % Seg Neuts % (Manual) Lymphocytes % (Manual) Monocytes % (Manual) Eosinophils % (Manual) Nucleated RBC % Seg Neutrophils # Seg Neutrophils # Man Lymphocytes # (Manual) Monocytes # (Manual) Eosinophils # (Manual) PT INR POC ABG pH POC ABG pCO2 POC ABG pO2 Sodium Potassium Chloride Carbon Dioxide BUN 38 H Creatinine 4.3 H Glucose 109 H POC Glucose 129 H 152 H Lactic Acid Calcium 7.8 L Phosphorus Magnesium AST ALT Alkaline Phosphatase Troponin T C-Reactive Protein Total Protein Albumin LDL Cholesterol Direct HDL Cholesterol Urine Creatinine Hepatitis C Antibody Crossmatch Crossmatch [facility] 11/30/17 11/30/17 11/30/17 12:17 16:23 23:35 WBC RBC Hgb Hct MCV MCH MCHC RDW Plt Count Lymph % (Auto) [place] % (Auto) Eos % (Auto) Lymph # [place] # Eos # Seg Neutrophils % Seg Neuts % (Manual) Lymphocytes % (Manual) Monocytes % (Manual) Eosinophils % (Manual) Nucleated RBC % Seg Neutrophils # Seg Neutrophils # Man Lymphocytes # (Manual) Monocytes # (Manual) Eosinophils # (Manual) PT INR POC ABG pH POC ABG pCO2 POC ABG pO2 Sodium Potassium Chloride Carbon Dioxide BUN Creatinine Glucose POC Glucose 170 H 114 H 122 H Lactic Acid Calcium Phosphorus Magnesium AST ALT Alkaline Phosphatase Troponin T C-Reactive Protein Total Protein Albumin LDL Cholesterol Direct HDL Cholesterol Urine Creatinine Hepatitis C Antibody Crossmatch Crossmatch [facility] 12/01/17 12/01/17 12/01/17 04:09 04:09 12:17 WBC 14.1 H RBC 3.32 L Hgb 8.6 L Hct 27.0 L MCV 81 L MCH 26 L MCHC RDW 18.7 H Plt Count Lymph % (Auto) 5.5 L [place] % (Auto) 9.7 H Eos % (Auto) Lymph # 0.8 L [place] # 1.4 H Eos # Seg Neutrophils % 82.9 H Seg Neuts % (Manual) Lymphocytes % (Manual) Monocytes % (Manual) Eosinophils % (Manual) Nucleated RBC % Seg Neutrophils # 11.7 H Seg Neutrophils # Man Lymphocytes # (Manual) Monocytes # (Manual) Eosinophils # (Manual) PT INR POC ABG pH POC ABG pCO2 POC ABG pO2 Sodium Potassium 3.4 L Chloride Carbon Dioxide BUN 21 H Creatinine 3.0 H Glucose 108 H POC Glucose 126 H Lactic Acid Calcium 8.0 L Phosphorus Magnesium AST ALT Alkaline Phosphatase Troponin T C-Reactive Protein Total Protein Albumin LDL Cholesterol Direct HDL Cholesterol Urine Creatinine Hepatitis C Antibody Crossmatch Crossmatch [facility] 12/02/17 12/03/17 12/03/17 23:46 02:52 05:54 WBC 17.2 H RBC 3.21 L Hgb 8.5 L Hct 25.8 L MCV 80 L MCH 26 L MCHC RDW 18.4 H Plt Count 128 L Lymph % (Auto) [place] % (Auto) Eos % (Auto) Lymph # [place] # Eos # Seg Neutrophils % Seg Neuts % (Manual) Lymphocytes % (Manual) Monocytes % (Manual) Eosinophils % (Manual) Nucleated RBC % Seg Neutrophils # Seg Neutrophils # Man Lymphocytes # (Manual) Monocytes # (Manual) Eosinophils # (Manual) PT INR POC ABG pH POC ABG pCO2 POC ABG pO2 Sodium Potassium Chloride Carbon Dioxide BUN Creatinine Glucose POC Glucose 125 H 107 H Lactic Acid Calcium Phosphorus Magnesium AST ALT Alkaline Phosphatase Troponin T C-Reactive Protein Total Protein Albumin LDL Cholesterol Direct HDL Cholesterol Urine Creatinine Hepatitis C Antibody Crossmatch Crossmatch [facility] 12/03/17 12/03/17 12/04/17 12:05 Unknown 12:26 WBC RBC Hgb Hct MCV MCH MCHC RDW Plt Count Lymph % (Auto) [place] % (Auto) Eos % (Auto) Lymph # [place] # Eos # Seg Neutrophils % Seg Neuts % (Manual) Lymphocytes % (Manual) Monocytes % (Manual) Eosinophils % (Manual) Nucleated RBC % Seg Neutrophils # Seg Neutrophils # Man Lymphocytes # (Manual) Monocytes # (Manual) Eosinophils # (Manual) PT INR POC ABG pH POC ABG pCO2 POC ABG pO2 Sodium Potassium Chloride Carbon Dioxide BUN 21 H Creatinine 2.8 H Glucose 113 H POC Glucose 106 H 119 H Lactic Acid Calcium Phosphorus Magnesium AST ALT Alkaline Phosphatase Troponin T C-Reactive Protein Total Protein Albumin LDL Cholesterol Direct HDL Cholesterol Urine Creatinine Hepatitis C Antibody Crossmatch Crossmatch [facility] 12/04/17 12/05/17 12/05/17 17:57 00:52 04:05 WBC RBC 2.96 L Hgb 7.7 L Hct 24.2 L MCV 82 L MCH 26 L MCHC RDW 18.8 H Plt Count 105 L Lymph % (Auto) 10.6 L [place] % (Auto) 12.1 H Eos % (Auto) 5.2 H Lymph # 1.1 L [place] # 1.3 H Eos # 0.5 H Seg Neutrophils % 71.3 H Seg Neuts % (Manual) Lymphocytes % (Manual) Monocytes % (Manual) Eosinophils % (Manual) Nucleated RBC % Seg Neutrophils # Seg Neutrophils # Man Lymphocytes # (Manual) Monocytes # (Manual) Eosinophils # (Manual) PT INR POC ABG pH POC ABG pCO2 POC ABG pO2 Sodium Potassium Chloride Carbon Dioxide BUN Creatinine Glucose POC Glucose 140 H 117 H Lactic Acid Calcium Phosphorus Magnesium AST ALT Alkaline Phosphatase Troponin T C-Reactive Protein Total Protein Albumin LDL Cholesterol Direct HDL Cholesterol Urine Creatinine Hepatitis C Antibody Crossmatch Crossmatch [facility] 12/05/17 12/05/17 12/06/17 04:05 22:50 08:18 WBC RBC 2.80 L Hgb 7.4 L Hct 23.0 L MCV 82 L MCH 27 L MCHC RDW 19.5 H Plt Count 125 L Lymph % (Auto) [place] % (Auto) Eos % (Auto) Lymph # [place] # Eos # Seg Neutrophils % Seg Neuts % (Manual) Lymphocytes % (Manual) Monocytes % (Manual) Eosinophils % (Manual) Nucleated RBC % Seg Neutrophils # Seg Neutrophils # Man Lymphocytes # (Manual) Monocytes # (Manual) Eosinophils # (Manual) PT INR POC ABG pH POC ABG pCO2 POC ABG pO2 Sodium Potassium Chloride 107.4 H Carbon Dioxide BUN Creatinine 2.5 H Glucose POC Glucose 112 H Lactic Acid Calcium 8.3 L Phosphorus Magnesium AST ALT Alkaline Phosphatase Troponin T C-Reactive Protein Total Protein Albumin LDL Cholesterol Direct HDL Cholesterol Urine Creatinine Hepatitis C Antibody Crossmatch Crossmatch [facility] 12/06/17 12/06/17 12/06/17 08:18 12:01 23:58 WBC RBC Hgb Hct MCV MCH MCHC RDW Plt Count Lymph % (Auto) [place] % (Auto) Eos % (Auto) Lymph # [place] # Eos # Seg Neutrophils % Seg Neuts % (Manual) Lymphocytes % (Manual) Monocytes % (Manual) Eosinophils % (Manual) Nucleated RBC % Seg Neutrophils # Seg Neutrophils # Man Lymphocytes # (Manual) Monocytes # (Manual) Eosinophils # (Manual) PT INR POC ABG pH POC ABG pCO2 POC ABG pO2 Sodium Potassium Chloride 108.4 H Carbon Dioxide BUN 28 H Creatinine 3.7 H Glucose 103 H POC Glucose 106 H 108 H Lactic Acid Calcium 8.0 L Phosphorus Magnesium AST ALT Alkaline Phosphatase Troponin T C-Reactive Protein Total Protein Albumin LDL Cholesterol Direct HDL Cholesterol Urine Creatinine Hepatitis C Antibody Crossmatch Crossmatch [facility] 09/17/18 09/17/18 09/17/18 05:47 05:47 18:03 WBC RBC 2.79 L Hgb 7.3 L Hct 22.8 L MCV 82 L MCH 26 L MCHC RDW 19.1 H Plt Count 101 L Lymph % (Auto) [place] % (Auto) Eos % (Auto) Lymph # [place] # Eos # Seg Neutrophils % Seg Neuts % (Manual) 72.0 H Lymphocytes % (Manual) 13.0 L Monocytes % (Manual) Eosinophils % (Manual) 9.0 H Nucleated RBC % Seg Neutrophils # Seg Neutrophils # Man Lymphocytes # (Manual) 1.1 L Monocytes # (Manual) Eosinophils # (Manual) 0.8 H PT INR POC ABG pH POC ABG pCO2 POC ABG pO2 Sodium 146 H Potassium Chloride 109.8 H Carbon Dioxide BUN 36 H Creatinine 4.0 H Glucose POC Glucose 143 H Lactic Acid Calcium 8.0 L Phosphorus Magnesium AST ALT Alkaline Phosphatase Troponin T C-Reactive Protein Total Protein Albumin LDL Cholesterol Direct HDL Cholesterol Urine Creatinine Hepatitis C Antibody Crossmatch Crossmatch [facility] 12/07/17 12/08/17 12/08/17 23:33 05:10 05:10 WBC RBC 2.91 L Hgb 7.5 L Hct 24.4 L MCV MCH 26 L MCHC 31 L RDW 19.7 H Plt Count 109 L Lymph % (Auto) [place] % (Auto) Eos % (Auto) Lymph # [place] # Eos # Seg Neutrophils % Seg Neuts % (Manual) Lymphocytes % (Manual) 11.0 L Monocytes % (Manual) Eosinophils % (Manual) 12.0 H Nucleated RBC % Seg Neutrophils # Seg Neutrophils # Man Lymphocytes # (Manual) 0.7 L Monocytes # (Manual) Eosinophils # (Manual) 0.7 H PT INR POC ABG pH POC ABG pCO2 POC ABG pO2 Sodium 147 H Potassium Chloride 110.4 H Carbon Dioxide BUN Creatinine 2.8 H Glucose POC Glucose 107 H Lactic Acid Calcium 7.8 L Phosphorus Magnesium AST ALT Alkaline Phosphatase Troponin T C-Reactive Protein Total Protein Albumin LDL Cholesterol Direct HDL Cholesterol Urine Creatinine Hepatitis C Antibody Crossmatch Crossmatch [facility] 12/09/17 12/09/17 12/09/17 04:18 04:18 12:16 WBC RBC Hgb 7.2 L Hct 23.2 L MCV MCH MCHC RDW Plt Count Lymph % (Auto) [place] % (Auto) Eos % (Auto) Lymph # [place] # Eos # Seg Neutrophils % Seg Neuts % (Manual) Lymphocytes % (Manual) Monocytes % (Manual) Eosinophils % (Manual) Nucleated RBC % Seg Neutrophils # Seg Neutrophils # Man Lymphocytes # (Manual) Monocytes # (Manual) Eosinophils # (Manual) PT INR POC ABG pH POC ABG pCO2 POC ABG pO2 Sodium 150 H Potassium Chloride 114.5 H Carbon Dioxide BUN 25 H Creatinine 3.3 H Glucose POC Glucose 142 H Lactic Acid Calcium 7.7 L Phosphorus Magnesium AST ALT Alkaline Phosphatase Troponin T C-Reactive Protein Total Protein Albumin LDL Cholesterol Direct HDL Cholesterol Urine Creatinine Hepatitis C Antibody Crossmatch Crossmatch [facility] 12/10/17 12/10/17 12/11/17 05:14 05:14 12:05 WBC RBC 2.81 L Hgb 7.4 L Hct 23.9 L MCV MCH 26 L MCHC 31 L RDW 19.1 H Plt Count 128 L Lymph % (Auto) [place] % (Auto) Eos % (Auto) Lymph # [place] # Eos # Seg Neutrophils % Seg Neuts % (Manual) 78.0 H Lymphocytes % (Manual) 8.0 L Monocytes % (Manual) Eosinophils % (Manual) 5.0 H Nucleated RBC % Seg Neutrophils # Seg Neutrophils # Man Lymphocytes # (Manual) 0.6 L Monocytes # (Manual) Eosinophils # (Manual) PT INR POC ABG pH POC ABG pCO2 POC ABG pO2 Sodium Potassium Chloride Carbon Dioxide BUN Creatinine 2.2 H Glucose POC Glucose 127 H Lactic Acid Calcium 7.8 L Phosphorus Magnesium AST ALT Alkaline Phosphatase Troponin T C-Reactive Protein Total Protein Albumin LDL Cholesterol Direct HDL Cholesterol Urine Creatinine Hepatitis C Antibody Crossmatch Crossmatch [facility] 12/11/17 12/11/17 12/11/17 15:26 18:36 23:40 WBC RBC Hgb Hct MCV MCH MCHC RDW Plt Count Lymph % (Auto) [place] % (Auto) Eos % (Auto) Lymph # [place] # Eos # Seg Neutrophils % Seg Neuts % (Manual) Lymphocytes % (Manual) Monocytes % (Manual) Eosinophils % (Manual) Nucleated RBC % Seg Neutrophils # Seg Neutrophils # Man Lymphocytes # (Manual) Monocytes # (Manual) Eosinophils # (Manual) PT INR POC ABG pH POC ABG pCO2 POC ABG pO2 Sodium Potassium 3.3 L Chloride Carbon Dioxide BUN Creatinine 1.6 H Glucose POC Glucose 106 H 110 H Lactic Acid Calcium 7.6 L Phosphorus Magnesium AST ALT Alkaline Phosphatase Troponin T C-Reactive Protein Total Protein Albumin LDL Cholesterol Direct HDL Cholesterol Urine Creatinine Hepatitis C Antibody Crossmatch Crossmatch [facility] 12/12/17 12/12/17 12/12/17 05:10 05:41 05:41 WBC RBC 3.17 L Hgb 8.1 L Hct 25.7 L MCV 81 L MCH 25 L MCHC 31 L RDW 19.2 H Plt Count Lymph % (Auto) [place] % (Auto) Eos % (Auto) Lymph # [place] # Eos # Seg Neutrophils % Seg Neuts % (Manual) 74.0 H Lymphocytes % (Manual) 6.0 L Monocytes % (Manual) Eosinophils % (Manual) 9.0 H Nucleated RBC % Seg Neutrophils # Seg Neutrophils # Man Lymphocytes # (Manual) 0.6 L Monocytes # (Manual) Eosinophils # (Manual) 0.9 H PT INR POC ABG pH POC ABG pCO2 POC ABG pO2 Sodium Potassium 3.5 L Chloride Carbon Dioxide BUN Creatinine 2.3 H Glucose 113 H POC Glucose 112 H Lactic Acid Calcium 7.5 L Phosphorus Magnesium AST ALT Alkaline Phosphatase Troponin T C-Reactive Protein Total Protein Albumin LDL Cholesterol Direct HDL Cholesterol Urine Creatinine Hepatitis C Antibody Crossmatch Crossmatch [facility] 12/13/17 12/13/17 12/13/17 06:14 12:00 17:37 WBC RBC Hgb Hct MCV MCH MCHC RDW Plt Count Lymph % (Auto) [place] % (Auto) Eos % (Auto) Lymph # [place] # Eos # Seg Neutrophils % Seg Neuts % (Manual) Lymphocytes % (Manual) Monocytes % (Manual) Eosinophils % (Manual) Nucleated RBC % Seg Neutrophils # Seg Neutrophils # Man Lymphocytes # (Manual) Monocytes # (Manual) Eosinophils # (Manual) PT INR POC ABG pH POC ABG pCO2 POC ABG pO2 Sodium Potassium Chloride Carbon Dioxide BUN Creatinine Glucose POC Glucose 130 H 133 H 136 H Lactic Acid Calcium Phosphorus Magnesium AST ALT Alkaline Phosphatase Troponin T C-Reactive Protein Total Protein Albumin LDL Cholesterol Direct HDL Cholesterol Urine Creatinine Hepatitis C Antibody Crossmatch Crossmatch [facility] 12/13/17 12/14/17 12/14/17 23:39 05:11 05:11 WBC RBC Hgb Hct MCV MCH MCHC RDW Plt Count Lymph % (Auto) [place] % (Auto) Eos % (Auto) Lymph # [place] # Eos # Seg Neutrophils % Seg Neuts % (Manual) Lymphocytes % (Manual) Monocytes % (Manual) Eosinophils % (Manual) Nucleated RBC % Seg Neutrophils # Seg Neutrophils # Man Lymphocytes # (Manual) Monocytes # (Manual) Eosinophils # (Manual) PT 15.4 H INR 1.17 H POC ABG pH POC ABG pCO2 POC ABG pO2 Sodium Potassium Chloride Carbon Dioxide 21 L BUN 26 H Creatinine 2.9 H Glucose POC Glucose 108 H Lactic Acid Calcium 7.2 L Phosphorus Magnesium AST ALT Alkaline Phosphatase Troponin T C-Reactive Protein Total Protein Albumin LDL Cholesterol Direct HDL Cholesterol Urine Creatinine Hepatitis C Antibody Crossmatch Crossmatch [facility] 12/14/17 12/14/17 12/14/17 12:00 16:01 18:24 WBC 12.9 H RBC 3.25 L Hgb 8.2 L Hct 26.2 L MCV 81 L MCH 25 L MCHC 31 L RDW 19.2 H Plt Count Lymph % (Auto) [place] % (Auto) Eos % (Auto) Lymph # [place] # Eos # Seg Neutrophils % Seg Neuts % (Manual) Lymphocytes % (Manual) Monocytes % (Manual) Eosinophils % (Manual) Nucleated RBC % Seg Neutrophils # Seg Neutrophils # Man Lymphocytes # (Manual) Monocytes # (Manual) Eosinophils # (Manual) PT INR POC ABG pH POC ABG pCO2 POC ABG pO2 Sodium Potassium Chloride Carbon Dioxide BUN Creatinine Glucose POC Glucose 138 H 120 H Lactic Acid Calcium Phosphorus Magnesium AST ALT Alkaline Phosphatase Troponin T C-Reactive Protein Total Protein Albumin LDL Cholesterol Direct HDL Cholesterol Urine Creatinine Hepatitis C Antibody Crossmatch Crossmatch [facility] 12/14/17 12/14/17 12/15/17 23:29 Unknown 05:57 WBC 12.5 H RBC 2.48 L Hgb 6.0 L Hct 24.4 L MCV 79 L MCH 24 L MCHC 30 L RDW 18.5 H Plt Count 131 L Lymph % (Auto) 7.0 L [place] % (Auto) 8.9 H Eos % (Auto) 8.3 H Lymph # 0.9 L [place] # 1.1 H Eos # 1.0 H Seg Neutrophils % 75.2 H Seg Neuts % (Manual) Lymphocytes % (Manual) Monocytes % (Manual) Eosinophils % (Manual) Nucleated RBC % Seg Neutrophils # 9.4 H Seg Neutrophils # Man Lymphocytes # (Manual) Monocytes # (Manual) Eosinophils # (Manual) PT INR POC ABG pH POC ABG pCO2 POC ABG pO2 Sodium Potassium Chloride Carbon Dioxide BUN Creatinine Glucose POC Glucose 110 H 113 H Lactic Acid Calcium Phosphorus Magnesium AST ALT Alkaline Phosphatase Troponin T C-Reactive Protein Total Protein Albumin LDL Cholesterol Direct HDL Cholesterol Urine Creatinine Hepatitis C Antibody Crossmatch Crossmatch [facility] 12/15/17 12/15/17 12/15/17 11:50 13:37 17:58 WBC RBC Hgb 7.3 L Hct 23.3 L MCV MCH MCHC RDW Plt Count Lymph % (Auto) [place] % (Auto) Eos % (Auto) Lymph # [place] # Eos # Seg Neutrophils % Seg Neuts % (Manual) Lymphocytes % (Manual) Monocytes % (Manual) Eosinophils % (Manual) Nucleated RBC % Seg Neutrophils # Seg Neutrophils # Man Lymphocytes # (Manual) Monocytes # (Manual) Eosinophils # (Manual) PT INR POC ABG pH POC ABG pCO2 POC ABG pO2 Sodium Potassium Chloride Carbon Dioxide BUN Creatinine Glucose POC Glucose 106 H 110 H Lactic Acid Calcium Phosphorus Magnesium AST ALT Alkaline Phosphatase Troponin T C-Reactive Protein Total Protein Albumin LDL Cholesterol Direct HDL Cholesterol Urine Creatinine Hepatitis C Antibody Crossmatch Crossmatch [facility] 12/15/17 12/16/17 12/16/17 23:30 04:55 05:14 WBC 13.2 H RBC 2.79 L Hgb 6.9 L Hct 22.2 L MCV 80 L MCH 25 L MCHC 31 L RDW 18.8 H Plt Count Lymph % (Auto) 7.3 L [place] % (Auto) 11.0 H Eos % (Auto) 8.2 H Lymph # 1.0 L [place] # 1.4 H Eos # 1.1 H Seg Neutrophils % 72.9 H Seg Neuts % (Manual) Lymphocytes % (Manual) Monocytes % (Manual) Eosinophils % (Manual) Nucleated RBC % Seg Neutrophils # 9.6 H Seg Neutrophils # Man Lymphocytes # (Manual) Monocytes # (Manual) Eosinophils # (Manual) PT INR POC ABG pH POC ABG pCO2 POC ABG pO2 Sodium 131 L D Potassium 2.8 L* D Chloride 93.2 L Carbon Dioxide BUN 24 H Creatinine 2.0 H Glucose POC Glucose 111 H Lactic Acid Calcium 7.7 L Phosphorus Magnesium AST ALT Alkaline Phosphatase Troponin T C-Reactive Protein Total Protein Albumin LDL Cholesterol Direct HDL Cholesterol Urine Creatinine Hepatitis C Antibody Crossmatch Crossmatch [facility] 12/16/17 12/16/17 12/16/17 13:01 17:32 23:39 WBC RBC Hgb Hct MCV MCH MCHC RDW Plt Count Lymph % (Auto) [place] % (Auto) Eos % (Auto) Lymph # [place] # Eos # Seg Neutrophils % Seg Neuts % (Manual) Lymphocytes % (Manual) Monocytes % (Manual) Eosinophils % (Manual) Nucleated RBC % Seg Neutrophils # Seg Neutrophils # Man Lymphocytes # (Manual) Monocytes # (Manual) Eosinophils # (Manual) PT INR POC ABG pH POC ABG pCO2 POC ABG pO2 Sodium Potassium Chloride Carbon Dioxide BUN Creatinine Glucose POC Glucose 121 H 107 H Lactic Acid Calcium Phosphorus Magnesium AST ALT Alkaline Phosphatase Troponin T C-Reactive Protein Total Protein Albumin LDL Cholesterol Direct HDL Cholesterol Urine Creatinine Hepatitis C Antibody Crossmatch Crossmatch [facility] See Detail 12/17/17 12/17/17 12/17/17 05:08 05:08 12:03 WBC 12.9 H RBC 2.88 L Hgb 7.2 L Hct 22.6 L MCV 78 L MCH 25 L MCHC RDW 18.3 H Plt Count Lymph % (Auto) 8.0 L [place] % (Auto) 8.6 H Eos % (Auto) Lymph # 1.0 L [place] # 1.1 H Eos # Seg Neutrophils % 79.3 H Seg Neuts % (Manual) Lymphocytes % (Manual) Monocytes % (Manual) Eosinophils % (Manual) Nucleated RBC % Seg Neutrophils # 10.2 H Seg Neutrophils # Man Lymphocytes # (Manual) Monocytes # (Manual) Eosinophils # (Manual) PT INR POC ABG pH POC ABG pCO2 POC ABG pO2 Sodium Potassium 3.4 L D Chloride Carbon Dioxide BUN Creatinine Glucose 104 H POC Glucose 109 H Lactic Acid Calcium 7.6 L Phosphorus Magnesium 1.30 L AST ALT Alkaline Phosphatase 177 H Troponin T C-Reactive Protein Total Protein Albumin 2.0 L LDL Cholesterol Direct HDL Cholesterol Urine Creatinine Hepatitis C Antibody Crossmatch Crossmatch [facility] 12/17/17 12/18/17 12/18/17 23:40 00:50 00:50 WBC 22.6 H RBC 2.76 L Hgb 6.7 L Hct 21.6 L MCV 78 L MCH 24 L MCHC 31 L RDW 18.4 H Plt Count Lymph % (Auto) [place] % (Auto) Eos % (Auto) Lymph # [place] # Eos # Seg Neutrophils % Seg Neuts % (Manual) Lymphocytes % (Manual) Monocytes % (Manual) Eosinophils % (Manual) Nucleated RBC % Seg Neutrophils # Seg Neutrophils # Man Lymphocytes # (Manual) Monocytes # (Manual) Eosinophils # (Manual) PT INR POC ABG pH POC ABG pCO2 POC ABG pO2 Sodium Potassium Chloride Carbon Dioxide BUN 22 H Creatinine 1.6 H Glucose 113 H POC Glucose 120 H Lactic Acid Calcium 7.8 L Phosphorus Magnesium 1.50 L AST ALT Alkaline Phosphatase Troponin T C-Reactive Protein Total Protein Albumin LDL Cholesterol Direct HDL Cholesterol Urine Creatinine Hepatitis C Antibody Crossmatch Crossmatch [facility] 12/18/17 12/18/17 12/18/17 05:34 12:00 18:07 WBC RBC Hgb Hct MCV MCH MCHC RDW Plt Count Lymph % (Auto) [place] % (Auto) Eos % (Auto) Lymph # [place] # Eos # Seg Neutrophils % Seg Neuts % (Manual) Lymphocytes % (Manual) Monocytes % (Manual) Eosinophils % (Manual) Nucleated RBC % Seg Neutrophils # Seg Neutrophils # Man Lymphocytes # (Manual) Monocytes # (Manual) Eosinophils # (Manual) PT INR POC ABG pH POC ABG pCO2 POC ABG pO2 Sodium Potassium Chloride Carbon Dioxide BUN Creatinine Glucose POC Glucose 132 H 136 H 122 H Lactic Acid Calcium Phosphorus Magnesium AST ALT Alkaline Phosphatase Troponin T C-Reactive Protein Total Protein Albumin LDL Cholesterol Direct HDL Cholesterol Urine Creatinine Hepatitis C Antibody Crossmatch Crossmatch [facility] 12/19/17 12/19/17 12/19/17 00:24 00:24 05:17 WBC 15.4 H RBC 2.41 L Hgb 6.1 L Hct 19.0 L* MCV 79 L MCH 25 L MCHC RDW 18.5 H Plt Count Lymph % (Auto) [place] % (Auto) Eos % (Auto) Lymph # [place] # Eos # Seg Neutrophils % Seg Neuts % (Manual) Lymphocytes % (Manual) Monocytes % (Manual) Eosinophils % (Manual) Nucleated RBC % Seg Neutrophils # Seg Neutrophils # Man Lymphocytes # (Manual) Monocytes # (Manual) Eosinophils # (Manual) PT INR POC ABG pH POC ABG pCO2 POC ABG pO2 Sodium Potassium 3.2 L Chloride Carbon Dioxide BUN Creatinine Glucose 117 H POC Glucose 132 H Lactic Acid Calcium 8.2 L Phosphorus Magnesium 1.50 L AST ALT Alkaline Phosphatase Troponin T C-Reactive Protein Total Protein Albumin LDL Cholesterol Direct HDL Cholesterol Urine Creatinine Hepatitis C Antibody Crossmatch Crossmatch [facility] 12/19/17 12/19/17 12/19/17 09:00 09:00 18:01 WBC 12.4 H RBC 2.86 L Hgb 7.2 L Hct 22.6 L MCV 79 L MCH 25 L MCHC RDW 17.2 H Plt Count Lymph % (Auto) 6.8 L [place] % (Auto) 12.6 H Eos % (Auto) Lymph # 0.8 L [place] # 1.6 H Eos # Seg Neutrophils % 80.1 H Seg Neuts % (Manual) Lymphocytes % (Manual) Monocytes % (Manual) Eosinophils % (Manual) Nucleated RBC % Seg Neutrophils # 10.0 H Seg Neutrophils # Man Lymphocytes # (Manual) Monocytes # (Manual) Eosinophils # (Manual) PT INR POC ABG pH POC ABG pCO2 POC ABG pO2 Sodium Potassium 3.1 L Chloride Carbon Dioxide BUN 22 H Creatinine Glucose 113 H POC Glucose 117 H Lactic Acid Calcium 8.3 L Phosphorus Magnesium AST 54 H ALT Alkaline Phosphatase 204 H Troponin T C-Reactive Protein Total Protein 5.8 L Albumin 2.0 L LDL Cholesterol Direct HDL Cholesterol Urine Creatinine Hepatitis C Antibody Crossmatch Crossmatch [facility] 12/19/17 12/20/17 12/20/17 23:49 05:53 19:00 WBC RBC 3.03 L Hgb 7.7 L Hct 23.7 L MCV 78 L MCH 25 L MCHC RDW 17.2 H Plt Count Lymph % (Auto) [place] % (Auto) Eos % (Auto) Lymph # [place] # Eos # Seg Neutrophils % Seg Neuts % (Manual) 74.0 H Lymphocytes % (Manual) 6.0 L Monocytes % (Manual) 17.0 H Eosinophils % (Manual) Nucleated RBC % Seg Neutrophils # Seg Neutrophils # Man Lymphocytes # (Manual) 0.5 L Monocytes # (Manual) 1.5 H Eosinophils # (Manual) PT INR POC ABG pH POC ABG pCO2 POC ABG pO2 Sodium Potassium Chloride Carbon Dioxide BUN Creatinine Glucose POC Glucose 125 H 124 H Lactic Acid Calcium Phosphorus Magnesium AST ALT Alkaline Phosphatase Troponin T C-Reactive Protein Total Protein Albumin LDL Cholesterol Direct HDL Cholesterol Urine Creatinine Hepatitis C Antibody Crossmatch Crossmatch [facility] 12/20/17 12/21/17 12/22/17 19:00 23:54 05:07 WBC RBC Hgb Hct MCV MCH MCHC RDW Plt Count Lymph % (Auto) [place] % (Auto) Eos % (Auto) Lymph # [place] # Eos # Seg Neutrophils % Seg Neuts % (Manual) Lymphocytes % (Manual) Monocytes % (Manual) Eosinophils % (Manual) Nucleated RBC % Seg Neutrophils # Seg Neutrophils # Man Lymphocytes # (Manual) Monocytes # (Manual) Eosinophils # (Manual) PT INR POC ABG pH POC ABG pCO2 POC ABG pO2 Sodium Potassium 3.3 L 2.9 L* Chloride Carbon Dioxide BUN 37 H 43 H Creatinine Glucose 114 H POC Glucose 109 H Lactic Acid Calcium 8.3 L 7.8 L Phosphorus 1.60 L Magnesium 1.50 L AST ALT Alkaline Phosphatase Troponin T C-Reactive Protein Total Protein Albumin LDL Cholesterol Direct HDL Cholesterol Urine Creatinine Hepatitis C Antibody Crossmatch Crossmatch [facility] 12/22/17 12/22/17 12/22/17 05:07 05:07 06:02 WBC 4.1 L RBC 3.09 L Hgb 7.7 L Hct 24.3 L MCV 79 L MCH 25 L MCHC RDW 17.8 H Plt Count Lymph % (Auto) [place] % (Auto) Eos % (Auto) Lymph # [place] # Eos # Seg Neutrophils % Seg Neuts % (Manual) Lymphocytes % (Manual) Monocytes % (Manual) Eosinophils % (Manual) Nucleated RBC % Seg Neutrophils # Seg Neutrophils # Man Lymphocytes # (Manual) Monocytes # (Manual) Eosinophils # (Manual) PT INR POC ABG pH POC ABG pCO2 POC ABG pO2 Sodium Potassium Chloride Carbon Dioxide BUN Creatinine Glucose POC Glucose 107 H Lactic Acid Calcium Phosphorus Magnesium 1.60 L AST ALT Alkaline Phosphatase Troponin T C-Reactive Protein Total Protein Albumin LDL Cholesterol Direct HDL Cholesterol Urine Creatinine Hepatitis C Antibody Crossmatch Crossmatch [facility] 12/22/17 12/22/17 12/22/17 10:50 12:02 17:32 WBC RBC Hgb Hct MCV MCH MCHC RDW Plt Count Lymph % (Auto) [place] % (Auto) Eos % (Auto) Lymph # [place] # Eos # Seg Neutrophils % Seg Neuts % (Manual) Lymphocytes % (Manual) Monocytes % (Manual) Eosinophils % (Manual) Nucleated RBC % Seg Neutrophils # Seg Neutrophils # Man Lymphocytes # (Manual) Monocytes # (Manual) Eosinophils # (Manual) PT INR POC ABG pH POC ABG pCO2 POC ABG pO2 Sodium Potassium Chloride Carbon Dioxide BUN Creatinine Glucose POC Glucose 129 H 111 H Lactic Acid Calcium Phosphorus Magnesium AST ALT Alkaline Phosphatase Troponin T C-Reactive Protein Total Protein Albumin LDL Cholesterol Direct HDL Cholesterol Urine Creatinine 55.8 H Hepatitis C Antibody Crossmatch Crossmatch [facility] 12/22/17 12/22/17 12/23/17 19:03 23:57 05:55 WBC RBC Hgb Hct MCV MCH MCHC RDW Plt Count Lymph % (Auto) [place] % (Auto) Eos % (Auto) Lymph # [place] # Eos # Seg Neutrophils % Seg Neuts % (Manual) Lymphocytes % (Manual) Monocytes % (Manual) Eosinophils % (Manual) Nucleated RBC % Seg Neutrophils # Seg Neutrophils # Man Lymphocytes # (Manual) Monocytes # (Manual) Eosinophils # (Manual) PT INR POC ABG pH POC ABG pCO2 POC ABG pO2 Sodium Potassium 3.4 L 2.9 L* Chloride Carbon Dioxide BUN 40 H Creatinine Glucose 107 H POC Glucose 128 H Lactic Acid Calcium 7.9 L Phosphorus Magnesium AST ALT Alkaline Phosphatase Troponin T C-Reactive Protein Total Protein Albumin LDL Cholesterol Direct HDL Cholesterol Urine Creatinine Hepatitis C Antibody Crossmatch Crossmatch [facility] 12/23/17 12/23/17 12/23/17 05:55 05:55 11:59 WBC 3.8 L RBC 3.10 L Hgb 7.7 L Hct 25.5 L MCV 82 L MCH 25 L MCHC 30 L RDW 17.9 H Plt Count Lymph % (Auto) [place] % (Auto) Eos % (Auto) Lymph # [place] # Eos # Seg Neutrophils % Seg Neuts % (Manual) Lymphocytes % (Manual) Monocytes % (Manual) Eosinophils % (Manual) Nucleated RBC % Seg Neutrophils # Seg Neutrophils # Man Lymphocytes # (Manual) Monocytes # (Manual) Eosinophils # (Manual) PT INR POC ABG pH POC ABG pCO2 POC ABG pO2 Sodium Potassium Chloride Carbon Dioxide BUN Creatinine Glucose POC Glucose 115 H Lactic Acid Calcium Phosphorus Magnesium 1.60 L AST ALT Alkaline Phosphatase Troponin T C-Reactive Protein Total Protein Albumin LDL Cholesterol Direct HDL Cholesterol Urine Creatinine Hepatitis C Antibody Crossmatch Crossmatch [facility] 12/23/17 12/24/17 12/24/17 22:48 00:29 03:17 WBC RBC Hgb Hct MCV MCH MCHC RDW Plt Count Lymph % (Auto) [place] % (Auto) Eos % (Auto) Lymph # [place] # Eos # Seg Neutrophils % Seg Neuts % (Manual) Lymphocytes % (Manual) Monocytes % (Manual) Eosinophils % (Manual) Nucleated RBC % Seg Neutrophils # Seg Neutrophils # Man Lymphocytes # (Manual) Monocytes # (Manual) Eosinophils # (Manual) PT INR POC ABG pH POC ABG pCO2 POC ABG pO2 Sodium 146 H Potassium 2.9 L* 3.4 L Chloride Carbon Dioxide BUN 36 H Creatinine 0.7 L Glucose POC Glucose 111 H Lactic Acid Calcium 7.5 L Phosphorus Magnesium 1.60 L AST 76 H ALT 59 H Alkaline Phosphatase 294 H Troponin T C-Reactive Protein Total Protein 5.8 L Albumin 2.2 L LDL Cholesterol Direct HDL Cholesterol Urine Creatinine Hepatitis C Antibody Crossmatch Crossmatch [facility] 12/24/17 12/24/17 12/24/17 03:17 05:14 17:05 WBC RBC 3.03 L Hgb 7.6 L Hct 23.7 L MCV 78 L MCH 25 L MCHC RDW 17.8 H Plt Count Lymph % (Auto) [place] % (Auto) Eos % (Auto) Lymph # [place] # Eos # Seg Neutrophils % Seg Neuts % (Manual) Lymphocytes % (Manual) Monocytes % (Manual) Eosinophils % (Manual) Nucleated RBC % Seg Neutrophils # Seg Neutrophils # Man Lymphocytes # (Manual) Monocytes # (Manual) Eosinophils # (Manual) PT INR POC ABG pH POC ABG pCO2 POC ABG pO2 Sodium Potassium Chloride Carbon Dioxide BUN Creatinine Glucose POC Glucose 127 H 132 H Lactic Acid Calcium Phosphorus Magnesium AST ALT Alkaline Phosphatase Troponin T C-Reactive Protein Total Protein Albumin LDL Cholesterol Direct HDL Cholesterol Urine Creatinine Hepatitis C Antibody Crossmatch Crossmatch [facility] 12/25/17 12/25/17 12/25/17 00:03 04:34 06:25 WBC RBC Hgb Hct MCV MCH MCHC RDW Plt Count Lymph % (Auto) [place] % (Auto) Eos % (Auto) Lymph # [place] # Eos # Seg Neutrophils % Seg Neuts % (Manual) Lymphocytes % (Manual) Monocytes % (Manual) Eosinophils % (Manual) Nucleated RBC % Seg Neutrophils # Seg Neutrophils # Man Lymphocytes # (Manual) Monocytes # (Manual) Eosinophils # (Manual) PT INR POC ABG pH POC ABG pCO2 POC ABG pO2 Sodium Potassium Chloride Carbon Dioxide BUN 30 H Creatinine 0.6 L Glucose 114 H POC Glucose 128 H 136 H Lactic Acid Calcium 7.5 L Phosphorus Magnesium AST 84 H ALT 82 H Alkaline Phosphatase 322 H Troponin T C-Reactive Protein Total Protein 6.0 L Albumin 2.3 L LDL Cholesterol Direct HDL Cholesterol Urine Creatinine Hepatitis C Antibody Crossmatch Crossmatch [facility] 12/25/17 12/25/17 12/26/17 12:02 18:28 00:03 WBC RBC Hgb Hct MCV MCH MCHC RDW Plt Count Lymph % (Auto) [place] % (Auto) Eos % (Auto) Lymph # [place] # Eos # Seg Neutrophils % Seg Neuts % (Manual) Lymphocytes % (Manual) Monocytes % (Manual) Eosinophils % (Manual) Nucleated RBC % Seg Neutrophils # Seg Neutrophils # Man Lymphocytes # (Manual) Monocytes # (Manual) Eosinophils # (Manual) PT INR POC ABG pH POC ABG pCO2 POC ABG pO2 Sodium Potassium Chloride Carbon Dioxide BUN Creatinine Glucose POC Glucose 158 H 113 H 117 H Lactic Acid Calcium Phosphorus Magnesium AST ALT Alkaline Phosphatase Troponin T C-Reactive Protein Total Protein Albumin LDL Cholesterol Direct HDL Cholesterol Urine Creatinine Hepatitis C Antibody Crossmatch Crossmatch [facility] 12/26/17 12/26/17 12/26/17 04:26 06:35 08:47 WBC RBC Hgb Hct MCV MCH MCHC RDW Plt Count Lymph % (Auto) [place] % (Auto) Eos % (Auto) Lymph # [place] # Eos # Seg Neutrophils % Seg Neuts % (Manual) Lymphocytes % (Manual) Monocytes % (Manual) Eosinophils % (Manual) Nucleated RBC % Seg Neutrophils # Seg Neutrophils # Man Lymphocytes # (Manual) Monocytes # (Manual) Eosinophils # (Manual) PT INR POC ABG pH POC ABG pCO2 POC ABG pO2 Sodium Potassium 5.4 H D 3.3 L D Chloride Carbon Dioxide 21 L BUN 39 H Creatinine 0.7 L Glucose 121 H POC Glucose 122 H Lactic Acid Calcium 7.8 L Phosphorus Magnesium AST 144 H ALT 98 H Alkaline Phosphatase 330 H Troponin T C-Reactive Protein Total Protein 6.1 L Albumin 2.1 L LDL Cholesterol Direct HDL Cholesterol Urine Creatinine Hepatitis C Antibody Crossmatch Crossmatch [facility] 12/26/17 12/26/17 12/27/17 12:29 18:27 07:34 WBC RBC Hgb Hct MCV MCH MCHC RDW Plt Count Lymph % (Auto) [place] % (Auto) Eos % (Auto) Lymph # [place] # Eos # Seg Neutrophils % Seg Neuts % (Manual) Lymphocytes % (Manual) Monocytes % (Manual) Eosinophils % (Manual) Nucleated RBC % Seg Neutrophils # Seg Neutrophils # Man Lymphocytes # (Manual) Monocytes # (Manual) Eosinophils # (Manual) PT INR POC ABG pH POC ABG pCO2 POC ABG pO2 Sodium Potassium 3.1 L Chloride Carbon Dioxide BUN Creatinine 0.5 L Glucose POC Glucose 128 H 121 H Lactic Acid Calcium 7.7 L Phosphorus Magnesium AST 74 H ALT 80 H Alkaline Phosphatase 306 H Troponin T C-Reactive Protein Total Protein 6.1 L Albumin 2.1 L LDL Cholesterol Direct HDL Cholesterol Urine Creatinine Hepatitis C Antibody Crossmatch Crossmatch [facility] 12/27/17 12/28/17 12/28/17 07:34 04:59 04:59 WBC 11.1 H RBC 3.00 L Hgb 7.2 L Hct 23.6 L MCV 79 L MCH 24 L MCHC 31 L RDW 18.3 H Plt Count Lymph % (Auto) 10.0 L [place] % (Auto) 10.2 H Eos % (Auto) 6.7 H Lymph # 1.1 L [place] # 1.1 H Eos # 0.7 H Seg Neutrophils % 72.1 H Seg Neuts % (Manual) Lymphocytes % (Manual) Monocytes % (Manual) Eosinophils % (Manual) Nucleated RBC % Seg Neutrophils # 8.0 H Seg Neutrophils # Man Lymphocytes # (Manual) Monocytes # (Manual) Eosinophils # (Manual) PT INR POC ABG pH POC ABG pCO2 POC ABG pO2 Sodium Potassium Chloride Carbon Dioxide BUN Creatinine 0.4 L Glucose 102 H POC Glucose Lactic Acid Calcium 7.8 L Phosphorus Magnesium 1.30 L AST 58 H ALT 62 H Alkaline Phosphatase 274 H Troponin T C-Reactive Protein Total Protein 6.0 L Albumin 2.0 L LDL Cholesterol Direct HDL Cholesterol Urine Creatinine Hepatitis C Antibody Crossmatch Crossmatch [facility] 12/28/17 12/29/17 12/29/17 18:06 04:02 04:02 WBC RBC Hgb Hct MCV MCH MCHC RDW Plt Count Lymph % (Auto) [place] % (Auto) Eos % (Auto) Lymph # [place] # Eos # Seg Neutrophils % Seg Neuts % (Manual) Lymphocytes % (Manual) Monocytes % (Manual) Eosinophils % (Manual) Nucleated RBC % Seg Neutrophils # Seg Neutrophils # Man Lymphocytes # (Manual) Monocytes # (Manual) Eosinophils # (Manual) PT INR POC ABG pH POC ABG pCO2 POC ABG pO2 Sodium Potassium Chloride Carbon Dioxide BUN Creatinine 0.5 L Glucose POC Glucose 107 H Lactic Acid Calcium 7.8 L Phosphorus Magnesium 1.40 L AST 50 H ALT Alkaline Phosphatase 311 H Troponin T C-Reactive Protein Total Protein 5.9 L Albumin 2.3 L LDL Cholesterol Direct HDL Cholesterol Urine Creatinine Hepatitis C Antibody Crossmatch Crossmatch [facility] 12/29/17 12/29/17 12/30/17 12:10 17:33 04:46 WBC RBC Hgb Hct MCV MCH MCHC RDW Plt Count Lymph % (Auto) [place] % (Auto) Eos % (Auto) Lymph # [place] # Eos # Seg Neutrophils % Seg Neuts % (Manual) Lymphocytes % (Manual) Monocytes % (Manual) Eosinophils % (Manual) Nucleated RBC % Seg Neutrophils # Seg Neutrophils # Man Lymphocytes # (Manual) Monocytes # (Manual) Eosinophils # (Manual) PT INR POC ABG pH POC ABG pCO2 POC ABG pO2 Sodium Potassium Chloride Carbon Dioxide BUN Creatinine 0.5 L Glucose POC Glucose 124 H 108 H Lactic Acid Calcium 8.2 L Phosphorus Magnesium AST ALT Alkaline Phosphatase 288 H Troponin T C-Reactive Protein Total Protein Albumin 2.4 L LDL Cholesterol Direct HDL Cholesterol Urine Creatinine Hepatitis C Antibody Crossmatch Crossmatch [facility] 12/30/17 04:46 WBC RBC Hgb Hct MCV MCH MCHC RDW Plt Count Lymph % (Auto) [place] % (Auto) Eos % (Auto) Lymph # [place] # Eos # Seg Neutrophils % Seg Neuts % (Manual) Lymphocytes % (Manual) Monocytes % (Manual) Eosinophils % (Manual) Nucleated RBC % Seg Neutrophils # Seg Neutrophils # Man Lymphocytes # (Manual) Monocytes # (Manual) Eosinophils # (Manual) PT INR POC ABG pH POC ABG pCO2 POC ABG pO2 Sodium Potassium Chloride Carbon Dioxide BUN Creatinine Glucose POC Glucose Lactic Acid Calcium Phosphorus Magnesium 1.50 L AST ALT Alkaline Phosphatase Troponin T C-Reactive Protein Total Protein Albumin LDL Cholesterol Direct HDL Cholesterol Urine Creatinine Hepatitis C Antibody Crossmatch Crossmatch [facility]
[2017-12-31] MEDS: NACL 0.45% 1000 ML 1,000 ML IV SCH ×2 (00:33→12:51)
[2017-12-31 05:12] LABS: BUN/Creatinine Ratio 33; Blood Urea Nitrogen 13 mg/dL (9-20); Calcium 8.1 mg/dL (8.4-10.2); Hemolysis Index 2
[2017-12-31] MEDS: APRESOLINE IV PRN (06:07)
[2017-12-31] MEDS: PREVACID SOLUTAB FEEDTUBE SCH ×2 (10:11→21:56)
[2017-12-31] MEDS: POTASSIUM CHLORIDE FEEDTUBE SCH ×2 (10:11→21:56)
[2017-12-31] MEDS: LOPRESSOR PO SCH ×2 (10:11→21:56)
[2017-12-31] MEDS: MAG-OX PO SCH ×2 (10:11→21:56)
--- NOTE | 2017-12-31 13:56 | Progress Note ---
Assessment and Plan 67 y/o male with acute on chronic respiratory failure, now trached, with peritonitis from dislodged peg tube s/p 2 IR drains now with NGT feedings. No new recs for today. Please see below. 1. Trach Care. Trach is permanent as patient cannot clear his secretions himself 2. Off IV abx therapy now 3. Electrolytes per primary and renal, now off HD 4. Will continue to follow along with you. Subjective Date of service: 12/31/17 Principal diagnosis: Acute hypoxic respiratory failure, s/p Trach Interval history: No acute events. Stable pulm status. Objective Vital Signs - 12hr 12/31/17 12/31/17 12/31/17 02:00 03:00 03:05 Temperature Pulse Rate 110 H 111 H Pulse Rate [ Right From Monitor] Respiratory 33 H 24 Rate Blood Pressure 159/92 159/92 O2 Sat by Pulse 95 98 Oximetry O2 Sat by Pulse 99 Oximetry [ Assessment] 12/31/17 12/31/17 12/31/17 04:00 05:01 06:01 Temperature 99.3 F Pulse Rate 102 H 107 H 110 H Pulse Rate [ 104 H Right From Monitor] Respiratory 25 H 25 H 24 Rate Blood Pressure 152/91 168/96 177/102 O2 Sat by Pulse 97 97 94 Oximetry O2 Sat by Pulse Oximetry [ Assessment] 12/31/17 12/31/17 12/31/17 06:07 07:00 07:52 Temperature Pulse Rate 106 H 117 H Pulse Rate [ Right From Monitor] Respiratory 26 H Rate Blood Pressure 177/110 158/91 O2 Sat by Pulse Oximetry O2 Sat by Pulse 98 Oximetry [ Assessment] 12/31/17 12/31/17 12/31/17 08:00 09:00 10:00 Temperature 97.3 F L Pulse Rate 110 H 112 H 106 H Pulse Rate [ 109 H Right From Monitor] Respiratory 30 H 30 H 27 H Rate Blood Pressure 153/83 138/83 149/85 O2 Sat by Pulse 98 97 97 Oximetry O2 Sat by Pulse Oximetry [ Assessment] 12/31/17 12/31/17 12/31/17 10:11 11:00 12:00 Temperature 97.2 F L Pulse Rate 115 H 111 H Pulse Rate [ 103 H Right From Monitor] Respiratory 31 H 18 Rate Blood Pressure 149/85 164/98 O2 Sat by Pulse 97 Oximetry O2 Sat by Pulse Oximetry [ Assessment] Constitutional: no acute distress, alert Eyes: non-icteric ENT: oropharynx moist Neck: supple (trach in position) Effort: normal Ascultation: Bilateral: clear, rales (few bilaterally), rhonchi (mild bilateral) , other (coarse BS bilaterally) Cardiovascular: regular rate and rhythm Gastrointestinal: normoactive bowel sounds, soft, non-tender, other (drains in place) Integumentary: normal Extremities: no cyanosis, pink and warm, edema (2+ bilateral LE edema) Neurologic: other (L hemiparesis,awake, response to my voice) Psychiatric: other (unable to assess) CBC and BMP: 12/28/17 04:59 12/31/17 04:03 ABG, PT/INR, D-dimer: ABG POC ABG pH 7.505 (7.35-7.45) H 11/23/17 04:56 POC ABG pCO2 26.3 (35-45) L 11/23/17 04:56 POC ABG pO2 100 (80-105) 11/23/17 04:56 POC ABG HCO3 20.8 11/23/17 04:56 POC ABG Total CO2 22 11/23/17 04:56 POC ABG O2 Sat 98 11/23/17 04:56 PT/INR, D-dimer PT 15.4 Sec. (12.2-14.9) H 12/14/17 05:11 INR 1.17 (0.87-1.13) H 12/14/17 05:11 Abnormal lab findings: Abnormal Labs 11/11/17 11/11/17 11/11/17 23:18 23:20 23:20 WBC RBC Hgb 10.4 L Hct 32.6 L D MCV MCH 27 L MCHC RDW 17.4 H Plt Count 105 L Lymph % (Auto) [place] % (Auto) Eos % (Auto) Lymph # [place] # Eos # Seg Neutrophils % Seg Neuts % (Manual) Lymphocytes % (Manual) 8.0 L Monocytes % (Manual) Eosinophils % (Manual) Nucleated RBC % 1.0 H Seg Neutrophils # Seg Neutrophils # Man Lymphocytes # (Manual) 0.7 L Monocytes # (Manual) Eosinophils # (Manual) PT INR POC ABG pH 7.550 H POC ABG pCO2 31.6 L POC ABG pO2 Sodium 146 H Potassium Chloride Carbon Dioxide BUN 26 H Creatinine 1.7 H D Glucose 133 H POC Glucose Lactic Acid Calcium Phosphorus Magnesium AST ALT Alkaline Phosphatase Troponin T 0.117 H* C-Reactive Protein Total Protein Albumin 2.5 L LDL Cholesterol Direct 42 L HDL Cholesterol 24 L Urine Creatinine Hepatitis C Antibody Crossmatch Crossmatch [place] 11/11/17 11/12/17 11/12/17 23:20 00:23 00:23 WBC RBC Hgb Hct MCV MCH MCHC RDW Plt Count Lymph % (Auto) [place] % (Auto) Eos % (Auto) Lymph # [place] # Eos # Seg Neutrophils % Seg Neuts % (Manual) Lymphocytes % (Manual) Monocytes % (Manual) Eosinophils % (Manual) Nucleated RBC % Seg Neutrophils # Seg Neutrophils # Man Lymphocytes # (Manual) Monocytes # (Manual) Eosinophils # (Manual) PT 16.7 H INR 1.28 H POC ABG pH POC ABG pCO2 POC ABG pO2 Sodium Potassium Chloride Carbon Dioxide BUN Creatinine Glucose POC Glucose Lactic Acid 3.20 H* Calcium Phosphorus Magnesium AST ALT Alkaline Phosphatase Troponin T C-Reactive Protein 25.70 H Total Protein Albumin LDL Cholesterol Direct HDL Cholesterol Urine Creatinine Hepatitis C Antibody Crossmatch Crossmatch [place]armed 11/12/17 11/12/17 11/12/17 00:46 01:27 01:27 WBC RBC Hgb Hct MCV MCH MCHC RDW Plt Count Lymph % (Auto) [place] % (Auto) Eos % (Auto) Lymph # [place] # Eos # Seg Neutrophils % Seg Neuts % (Manual) Lymphocytes % (Manual) Monocytes % (Manual) Eosinophils % (Manual) Nucleated RBC % Seg Neutrophils # Seg Neutrophils # Man Lymphocytes # (Manual) Monocytes # (Manual) Eosinophils # (Manual) PT INR POC ABG pH 7.495 H POC ABG pCO2 32.0 L POC ABG pO2 64 L Sodium Potassium Chloride Carbon Dioxide BUN Creatinine Glucose POC Glucose Lactic Acid 3.70 H* Calcium Phosphorus Magnesium AST ALT Alkaline Phosphatase Troponin T 0.096 H C-Reactive Protein Total Protein Albumin LDL Cholesterol Direct HDL Cholesterol Urine Creatinine Hepatitis C Antibody Crossmatch Crossmatch [place] 11/12/17 11/12/17 11/12/17 03:21 04:50 06:27 WBC RBC Hgb Hct MCV MCH MCHC RDW Plt Count Lymph % (Auto) [place] % (Auto) Eos % (Auto) Lymph # [place] # Eos # Seg Neutrophils % Seg Neuts % (Manual) Lymphocytes % (Manual) Monocytes % (Manual) Eosinophils % (Manual) Nucleated RBC % Seg Neutrophils # Seg Neutrophils # Man Lymphocytes # (Manual) Monocytes # (Manual) Eosinophils # (Manual) PT INR POC ABG pH POC ABG pCO2 POC ABG pO2 109 H Sodium Potassium Chloride Carbon Dioxide BUN Creatinine Glucose POC Glucose Lactic Acid 3.80 H* 2.20 H* Calcium Phosphorus Magnesium AST ALT Alkaline Phosphatase Troponin T C-Reactive Protein Total Protein Albumin LDL Cholesterol Direct HDL Cholesterol Urine Creatinine Hepatitis C Antibody Crossmatch Crossmatch [place]armed 11/12/17 11/12/17 11/12/17 09:24 09:24 09:24 WBC RBC Hgb 10.4 L Hct 33.4 L MCV MCH MCHC RDW Plt Count Lymph % (Auto) [place] % (Auto) Eos % (Auto) Lymph # [place] # Eos # Seg Neutrophils % Seg Neuts % (Manual) Lymphocytes % (Manual) Monocytes % (Manual) Eosinophils % (Manual) Nucleated RBC % Seg Neutrophils # Seg Neutrophils # Man Lymphocytes # (Manual) Monocytes # (Manual) Eosinophils # (Manual) PT INR POC ABG pH POC ABG pCO2 POC ABG pO2 Sodium Potassium Chloride Carbon Dioxide BUN Creatinine Glucose POC Glucose Lactic Acid 2.90 H* Calcium Phosphorus Magnesium AST ALT Alkaline Phosphatase Troponin T 0.091 H C-Reactive Protein Total Protein Albumin LDL Cholesterol Direct HDL Cholesterol Urine Creatinine Hepatitis C Antibody Crossmatch Crossmatch [place] 11/12/17 11/12/17 11/12/17 12:56 20:03 Unknown WBC RBC Hgb Hct MCV MCH MCHC RDW Plt Count Lymph % (Auto) [place] % (Auto) Eos % (Auto) Lymph # [place] # Eos # Seg Neutrophils % Seg Neuts % (Manual) Lymphocytes % (Manual) Monocytes % (Manual) Eosinophils % (Manual) Nucleated RBC % Seg Neutrophils # Seg Neutrophils # Man Lymphocytes # (Manual) Monocytes # (Manual) Eosinophils # (Manual) PT INR POC ABG pH POC ABG pCO2 POC ABG pO2 Sodium Potassium Chloride Carbon Dioxide BUN Creatinine Glucose POC Glucose Lactic Acid 3.60 H* Calcium Phosphorus Magnesium AST ALT Alkaline Phosphatase Troponin T 0.102 H* 0.156 H* D C-Reactive Protein Total Protein Albumin LDL Cholesterol Direct HDL Cholesterol Urine Creatinine Hepatitis C Antibody Crossmatch Crossmatch [place] 11/12/17 11/13/17 11/13/17 Unknown 04:50 04:50 WBC 12.2 H RBC 3.51 L Hgb 9.3 L Hct 30.1 L MCV MCH 26 L MCHC 31 L RDW 18.0 H Plt Count 128 L Lymph % (Auto) 8.6 L [place] % (Auto) 11.1 H Eos % (Auto) Lymph # 1.1 L [place] # 1.4 H Eos # Seg Neutrophils % 80.1 H Seg Neuts % (Manual) Lymphocytes % (Manual) Monocytes % (Manual) Eosinophils % (Manual) Nucleated RBC % Seg Neutrophils # 9.8 H Seg Neutrophils # Man Lymphocytes # (Manual) Monocytes # (Manual) Eosinophils # (Manual) PT INR POC ABG pH POC ABG pCO2 POC ABG pO2 Sodium 149 H Potassium 5.1 H Chloride 114.4 H Carbon Dioxide 18 L BUN 52 H Creatinine 3.3 H D Glucose 129 H POC Glucose Lactic Acid Calcium 7.9 L Phosphorus Magnesium AST ALT Alkaline Phosphatase Troponin T 0.098 H C-Reactive Protein Total Protein Albumin LDL Cholesterol Direct HDL Cholesterol Urine Creatinine Hepatitis C Antibody Crossmatch Crossmatch [place] 11/13/17 11/13/17 11/14/17 04:51 09:34 04:21 WBC RBC Hgb Hct MCV MCH MCHC RDW Plt Count Lymph % (Auto) [place] % (Auto) Eos % (Auto) Lymph # [place] # Eos # Seg Neutrophils % Seg Neuts % (Manual) Lymphocytes % (Manual) Monocytes % (Manual) Eosinophils % (Manual) Nucleated RBC % Seg Neutrophils # Seg Neutrophils # Man Lymphocytes # (Manual) Monocytes # (Manual) Eosinophils # (Manual) PT INR POC ABG pH POC ABG pCO2 30.1 L 29.8 L POC ABG pO2 135 H Sodium Potassium Chloride Carbon Dioxide BUN Creatinine Glucose POC Glucose Lactic Acid 2.10 H* Calcium Phosphorus Magnesium AST ALT Alkaline Phosphatase Troponin T C-Reactive Protein Total Protein Albumin LDL Cholesterol Direct HDL Cholesterol Urine Creatinine Hepatitis C Antibody Crossmatch Crossmatch [place] 11/15/17 11/15/17 11/16/17 04:52 15:50 05:17 WBC RBC Hgb Hct MCV MCH MCHC RDW Plt Count Lymph % (Auto) [place] % (Auto) Eos % (Auto) Lymph # [place] # Eos # Seg Neutrophils % Seg Neuts % (Manual) Lymphocytes % (Manual) Monocytes % (Manual) Eosinophils % (Manual) Nucleated RBC % Seg Neutrophils # Seg Neutrophils # Man Lymphocytes # (Manual) Monocytes # (Manual) Eosinophils # (Manual) PT INR POC ABG pH POC ABG pCO2 29.5 L 31.5 L POC ABG pO2 115 H 122 H Sodium 154 H Potassium Chloride 117.9 H Carbon Dioxide 19 L BUN 87 H Creatinine 4.1 H Glucose POC Glucose Lactic Acid Calcium 8.1 L Phosphorus Magnesium AST ALT Alkaline Phosphatase Troponin T C-Reactive Protein Total Protein Albumin LDL Cholesterol Direct HDL Cholesterol Urine Creatinine Hepatitis C Antibody Crossmatch Crossmatch [place] 11/16/17 11/17/17 11/17/17 16:37 04:07 10:00 WBC 14.7 H RBC 3.23 L Hgb 8.3 L Hct 28.1 L MCV MCH 26 L MCHC 30 L RDW 18.8 H Plt Count Lymph % (Auto) [place] % (Auto) Eos % (Auto) Lymph # [place] # Eos # Seg Neutrophils % Seg Neuts % (Manual) 75 H Lymphocytes % (Manual) 8.0 L Monocytes % (Manual) Eosinophils % (Manual) Nucleated RBC % 1.0 H Seg Neutrophils # Seg Neutrophils # Man 11.0 H Lymphocytes # (Manual) Monocytes # (Manual) 0.9 H Eosinophils # (Manual) PT INR POC ABG pH POC ABG pCO2 POC ABG pO2 Sodium 153 H 155 H Potassium Chloride 117.3 H 119.4 H Carbon Dioxide 19 L 20 L BUN 90 H 89 H Creatinine 3.9 H 3.6 H Glucose 111 H 115 H POC Glucose Lactic Acid Calcium 8.1 L 8.0 L Phosphorus Magnesium AST ALT Alkaline Phosphatase Troponin T C-Reactive Protein Total Protein Albumin LDL Cholesterol Direct HDL Cholesterol Urine Creatinine Hepatitis C Antibody Crossmatch Crossmatch [place] 11/18/17 11/18/17 11/18/17 04:34 04:34 04:34 WBC 15.5 H RBC 3.13 L Hgb 8.1 L Hct 26.3 L MCV MCH 26 L MCHC 31 L RDW 18.6 H Plt Count Lymph % (Auto) [place] % (Auto) Eos % (Auto) Lymph # [place] # Eos # Seg Neutrophils % Seg Neuts % (Manual) 81.0 H Lymphocytes % (Manual) 7.0 L Monocytes % (Manual) Eosinophils % (Manual) Nucleated RBC % 1.0 H Seg Neutrophils # Seg Neutrophils # Man 12.6 H Lymphocytes # (Manual) 1.1 L Monocytes # (Manual) Eosinophils # (Manual) PT 16.7 H INR 1.30 H POC ABG pH POC ABG pCO2 POC ABG pO2 Sodium 155 H Potassium 3.2 L Chloride 121.0 H Carbon Dioxide 20 L BUN 74 H Creatinine 2.9 H Glucose 126 H POC Glucose Lactic Acid Calcium 7.9 L Phosphorus Magnesium AST ALT Alkaline Phosphatase Troponin T C-Reactive Protein Total Protein Albumin LDL Cholesterol Direct HDL Cholesterol Urine Creatinine Hepatitis C Antibody Crossmatch Crossmatch [place] 11/19/17 11/19/17 11/20/17 04:44 04:44 00:38 WBC 19.0 H 22.2 H RBC 3.20 L 3.17 L Hgb 8.4 L 7.9 L Hct 27.9 L 26.4 L MCV 83 L MCH 26 L 25 L MCHC 30 L 30 L RDW 19.1 H 18.9 H Plt Count Lymph % (Auto) [place] % (Auto) Eos % (Auto) Lymph # [place] # Eos # Seg Neutrophils % Seg Neuts % (Manual) 83.0 H Lymphocytes % (Manual) 3.0 L Monocytes % (Manual) 9.0 H Eosinophils % (Manual) Nucleated RBC % Seg Neutrophils # Seg Neutrophils # Man 18.4 H Lymphocytes # (Manual) 0.7 L Monocytes # (Manual) 2.0 H Eosinophils # (Manual) PT INR POC ABG pH POC ABG pCO2 POC ABG pO2 Sodium 152 H Potassium Chloride 117.1 H Carbon Dioxide 17 L BUN 66 H Creatinine 2.8 H Glucose 119 H POC Glucose Lactic Acid Calcium 7.8 L Phosphorus Magnesium 2.70 H AST ALT Alkaline Phosphatase Troponin T C-Reactive Protein Total Protein Albumin LDL Cholesterol Direct HDL Cholesterol Urine Creatinine Hepatitis C Antibody Crossmatch Crossmatch [place] 11/20/17 11/20/17 11/20/17 03:29 04:48 13:38 WBC RBC Hgb Hct MCV MCH MCHC RDW Plt Count Lymph % (Auto) [place] % (Auto) Eos % (Auto) Lymph # [place] # Eos # Seg Neutrophils % Seg Neuts % (Manual) Lymphocytes % (Manual) Monocytes % (Manual) Eosinophils % (Manual) Nucleated RBC % Seg Neutrophils # Seg Neutrophils # Man Lymphocytes # (Manual) Monocytes # (Manual) Eosinophils # (Manual) PT INR POC ABG pH POC ABG pCO2 29.4 L POC ABG pO2 Sodium 148 H Potassium 3.4 L Chloride 113.7 H Carbon Dioxide 18 L BUN 59 H Creatinine 2.7 H Glucose 113 H POC Glucose 128 H Lactic Acid Calcium 7.8 L Phosphorus Magnesium AST ALT Alkaline Phosphatase Troponin T C-Reactive Protein Total Protein Albumin LDL Cholesterol Direct HDL Cholesterol Urine Creatinine Hepatitis C Antibody Crossmatch Crossmatch [place] 11/20/17 11/20/17 11/21/17 17:38 23:40 00:13 WBC RBC Hgb 8.4 L Hct 28.0 L MCV MCH MCHC RDW Plt Count Lymph % (Auto) [place] % (Auto) Eos % (Auto) Lymph # [place] # Eos # Seg Neutrophils % Seg Neuts % (Manual) Lymphocytes % (Manual) Monocytes % (Manual) Eosinophils % (Manual) Nucleated RBC % Seg Neutrophils # Seg Neutrophils # Man Lymphocytes # (Manual) Monocytes # (Manual) Eosinophils # (Manual) PT INR POC ABG pH POC ABG pCO2 POC ABG pO2 Sodium Potassium Chloride Carbon Dioxide BUN Creatinine Glucose POC Glucose 115 H 145 H Lactic Acid Calcium Phosphorus Magnesium AST ALT Alkaline Phosphatase Troponin T C-Reactive Protein Total Protein Albumin LDL Cholesterol Direct HDL Cholesterol Urine Creatinine Hepatitis C Antibody Crossmatch Crossmatch [place] 11/21/17 11/21/17 11/21/17 04:30 04:30 04:58 WBC 21.0 H RBC Hgb 9.6 L Hct 32.7 L MCV MCH 25 L MCHC 29 L RDW 19.7 H Plt Count 746 H Lymph % (Auto) [place] % (Auto) Eos % (Auto) Lymph # [place] # Eos # Seg Neutrophils % Seg Neuts % (Manual) Lymphocytes % (Manual) Monocytes % (Manual) Eosinophils % (Manual) Nucleated RBC % Seg Neutrophils # Seg Neutrophils # Man Lymphocytes # (Manual) Monocytes # (Manual) Eosinophils # (Manual) PT INR POC ABG pH POC ABG pCO2 POC ABG pO2 Sodium Potassium Chloride 109.4 H Carbon Dioxide 14 L BUN 59 H Creatinine 3.0 H Glucose 137 H POC Glucose 132 H Lactic Acid Calcium 7.6 L Phosphorus Magnesium AST ALT Alkaline Phosphatase Troponin T C-Reactive Protein Total Protein Albumin LDL Cholesterol Direct HDL Cholesterol Urine Creatinine Hepatitis C Antibody Crossmatch Crossmatch [place] 11/21/17 11/21/17 11/21/17 06:30 13:43 14:17 WBC 38.2 H RBC Hgb 9.0 L Hct 32.3 L MCV MCH 25 L MCHC 28 L RDW 20.0 H Plt Count 766 H Lymph % (Auto) [place] % (Auto) Eos % (Auto) Lymph # [place] # Eos # Seg Neutrophils % Seg Neuts % (Manual) 85.0 H Lymphocytes % (Manual) 1.0 L Monocytes % (Manual) Eosinophils % (Manual) Nucleated RBC % 2.0 H Seg Neutrophils # Seg Neutrophils # Man 32.5 H Lymphocytes # (Manual) 0.4 L Monocytes # (Manual) 2.3 H Eosinophils # (Manual) PT INR POC ABG pH POC ABG pCO2 18.6 L POC ABG pO2 121 H Sodium 146 H Potassium Chloride 110.9 H Carbon Dioxide 11 L BUN 62 H Creatinine 4.0 H Glucose 64 L POC Glucose Lactic Acid Calcium 7.6 L Phosphorus Magnesium AST ALT Alkaline Phosphatase Troponin T C-Reactive Protein Total Protein Albumin LDL Cholesterol Direct HDL Cholesterol Urine Creatinine Hepatitis C Antibody Crossmatch Crossmatch [place] 11/21/17 11/21/17 11/22/17 14:17 19:09 00:05 WBC RBC Hgb Hct MCV MCH MCHC RDW Plt Count Lymph % (Auto) [place] % (Auto) Eos % (Auto) Lymph # [place] # Eos # Seg Neutrophils % Seg Neuts % (Manual) Lymphocytes % (Manual) Monocytes % (Manual) Eosinophils % (Manual) Nucleated RBC % Seg Neutrophils # Seg Neutrophils # Man Lymphocytes # (Manual) Monocytes # (Manual) Eosinophils # (Manual) PT INR POC ABG pH POC ABG pCO2 20.0 L POC ABG pO2 Sodium Potassium Chloride Carbon Dioxide BUN Creatinine Glucose POC Glucose 127 H Lactic Acid 7.70 H* Calcium Phosphorus Magnesium AST ALT Alkaline Phosphatase Troponin T C-Reactive Protein Total Protein Albumin LDL Cholesterol Direct HDL Cholesterol Urine Creatinine Hepatitis C Antibody Crossmatch Crossmatch [place] 11/22/17 11/22/17 11/22/17 03:53 06:00 07:25 WBC RBC Hgb Hct MCV MCH MCHC RDW Plt Count Lymph % (Auto) [place] % (Auto) Eos % (Auto) Lymph # [place] # Eos # Seg Neutrophils % Seg Neuts % (Manual) Lymphocytes % (Manual) Monocytes % (Manual) Eosinophils % (Manual) Nucleated RBC % Seg Neutrophils # Seg Neutrophils # Man Lymphocytes # (Manual) Monocytes # (Manual) Eosinophils # (Manual) PT INR POC ABG pH POC ABG pCO2 22.2 L POC ABG pO2 Sodium 147 H Potassium Chloride 111.9 H Carbon Dioxide 16 L BUN 72 H Creatinine 5.1 H Glucose 181 H POC Glucose 180 H Lactic Acid Calcium 7.1 L Phosphorus Magnesium AST ALT Alkaline Phosphatase Troponin T C-Reactive Protein Total Protein Albumin LDL Cholesterol Direct HDL Cholesterol Urine Creatinine Hepatitis C Antibody Crossmatch Crossmatch [place] 11/22/17 11/22/17 11/22/17 07:25 07:25 12:05 WBC 31.4 H RBC 3.22 L Hgb 8.0 L Hct 26.7 L MCV 83 L MCH 25 L MCHC 30 L RDW 19.4 H Plt Count 602 H Lymph % (Auto) [place] % (Auto) Eos % (Auto) Lymph # [place] # Eos # Seg Neutrophils % Seg Neuts % (Manual) Lymphocytes % (Manual) Monocytes % (Manual) Eosinophils % (Manual) Nucleated RBC % Seg Neutrophils # Seg Neutrophils # Man Lymphocytes # (Manual) Monocytes # (Manual) Eosinophils # (Manual) PT INR POC ABG pH POC ABG pCO2 POC ABG pO2 Sodium Potassium Chloride Carbon Dioxide BUN Creatinine Glucose POC Glucose 182 H Lactic Acid 5.00 H* Calcium Phosphorus Magnesium AST ALT Alkaline Phosphatase Troponin T C-Reactive Protein Total Protein Albumin LDL Cholesterol Direct HDL Cholesterol Urine Creatinine Hepatitis C Antibody Crossmatch Crossmatch [place] 11/22/17 11/23/17 11/23/17 19:45 01:28 04:56 WBC RBC Hgb Hct MCV MCH MCHC RDW Plt Count Lymph % (Auto) [place] % (Auto) Eos % (Auto) Lymph # [place] # Eos # Seg Neutrophils % Seg Neuts % (Manual) Lymphocytes % (Manual) Monocytes % (Manual) Eosinophils % (Manual) Nucleated RBC % Seg Neutrophils # Seg Neutrophils # Man Lymphocytes # (Manual) Monocytes # (Manual) Eosinophils # (Manual) PT INR POC ABG pH 7.505 H POC ABG pCO2 26.3 L POC ABG pO2 Sodium Potassium Chloride Carbon Dioxide BUN Creatinine Glucose POC Glucose 165 H Lactic Acid Calcium Phosphorus Magnesium AST ALT Alkaline Phosphatase Troponin T C-Reactive Protein Total Protein Albumin LDL Cholesterol Direct HDL Cholesterol Urine Creatinine Hepatitis C Antibody Reactive A Crossmatch Crossmatch [place] 11/23/17 11/23/17 11/23/17 07:05 12:32 17:53 WBC RBC Hgb Hct MCV MCH MCHC RDW Plt Count Lymph % (Auto) [place] % (Auto) Eos % (Auto) Lymph # [place] # Eos # Seg Neutrophils % Seg Neuts % (Manual) Lymphocytes % (Manual) Monocytes % (Manual) Eosinophils % (Manual) Nucleated RBC % Seg Neutrophils # Seg Neutrophils # Man Lymphocytes # (Manual) Monocytes # (Manual) Eosinophils # (Manual) PT INR POC ABG pH POC ABG pCO2 POC ABG pO2 Sodium Potassium Chloride Carbon Dioxide 18 L BUN 61 H Creatinine 4.2 H Glucose 153 H POC Glucose 138 H 173 H Lactic Acid Calcium 7.5 L Phosphorus Magnesium AST ALT Alkaline Phosphatase Troponin T C-Reactive Protein Total Protein Albumin LDL Cholesterol Direct HDL Cholesterol Urine Creatinine Hepatitis C Antibody Crossmatch Crossmatch [place] 11/23/17 11/24/17 11/24/17 23:41 05:42 05:42 WBC 21.5 H RBC 2.48 L Hgb 6.2 L Hct 20.3 L D MCV 82 L MCH 25 L MCHC 31 L RDW 18.9 H Plt Count Lymph % (Auto) [place] % (Auto) Eos % (Auto) Lymph # [place] # Eos # Seg Neutrophils % Seg Neuts % (Manual) 94.0 H Lymphocytes % (Manual) 3.0 L Monocytes % (Manual) Eosinophils % (Manual) Nucleated RBC % Seg Neutrophils # Seg Neutrophils # Man 20.2 H Lymphocytes # (Manual) 0.6 L Monocytes # (Manual) Eosinophils # (Manual) PT INR POC ABG pH POC ABG pCO2 POC ABG pO2 Sodium 149 H Potassium 2.8 L* D Chloride 113.9 H Carbon Dioxide 19 L BUN 31 H Creatinine 2.3 H Glucose 103 H POC Glucose 133 H Lactic Acid Calcium 5.3 L* D Phosphorus Magnesium 1.30 L AST ALT Alkaline Phosphatase Troponin T C-Reactive Protein Total Protein Albumin LDL Cholesterol Direct HDL Cholesterol Urine Creatinine Hepatitis C Antibody Crossmatch Crossmatch [place] 11/24/17 11/24/17 11/24/17 05:42 08:27 08:27 WBC RBC Hgb Hct MCV MCH MCHC RDW Plt Count Lymph % (Auto) [place] % (Auto) Eos % (Auto) Lymph # [place] # Eos # Seg Neutrophils % Seg Neuts % (Manual) Lymphocytes % (Manual) Monocytes % (Manual) Eosinophils % (Manual) Nucleated RBC % Seg Neutrophils # Seg Neutrophils # Man Lymphocytes # (Manual) Monocytes # (Manual) Eosinophils # (Manual) PT INR POC ABG pH POC ABG pCO2 POC ABG pO2 Sodium Potassium Chloride Carbon Dioxide BUN Creatinine Glucose POC Glucose Lactic Acid 5.40 H* 5.20 H* Calcium Phosphorus Magnesium AST ALT Alkaline Phosphatase Troponin T C-Reactive Protein Total Protein Albumin LDL Cholesterol Direct HDL Cholesterol Urine Creatinine Hepatitis C Antibody Crossmatch See Detail Crossmatch [facility]armed 11/24/17 11/24/17 11/24/17 12:13 17:22 21:53 WBC 23.0 H RBC 3.32 L Hgb 8.8 L Hct 27.1 L D MCV 82 L MCH 26 L MCHC RDW 17.3 H Plt Count Lymph % (Auto) [place] % (Auto) Eos % (Auto) Lymph # [place] # Eos # Seg Neutrophils % Seg Neuts % (Manual) Lymphocytes % (Manual) Monocytes % (Manual) Eosinophils % (Manual) Nucleated RBC % Seg Neutrophils # Seg Neutrophils # Man Lymphocytes # (Manual) Monocytes # (Manual) Eosinophils # (Manual) PT INR POC ABG pH POC ABG pCO2 POC ABG pO2 Sodium Potassium Chloride Carbon Dioxide BUN Creatinine Glucose POC Glucose 138 H 180 H Lactic Acid Calcium Phosphorus Magnesium AST ALT Alkaline Phosphatase Troponin T C-Reactive Protein Total Protein Albumin LDL Cholesterol Direct HDL Cholesterol Urine Creatinine Hepatitis C Antibody Crossmatch Crossmatch [place] 11/24/17 11/24/17 11/25/17 21:53 23:28 04:19 WBC RBC Hgb Hct MCV MCH MCHC RDW Plt Count Lymph % (Auto) [place] % (Auto) Eos % (Auto) Lymph # [place] # Eos # Seg Neutrophils % Seg Neuts % (Manual) Lymphocytes % (Manual) Monocytes % (Manual) Eosinophils % (Manual) Nucleated RBC % Seg Neutrophils # Seg Neutrophils # Man Lymphocytes # (Manual) Monocytes # (Manual) Eosinophils # (Manual) PT INR POC ABG pH POC ABG pCO2 POC ABG pO2 Sodium Potassium Chloride 96.3 L Carbon Dioxide BUN 28 H 31 H Creatinine 2.3 H 2.6 H Glucose 125 H 101 H POC Glucose 111 H Lactic Acid Calcium 7.5 L D 7.4 L Phosphorus Magnesium AST 170 H ALT 179 H Alkaline Phosphatase 175 H Troponin T C-Reactive Protein Total Protein 5.5 L Albumin 1.8 L LDL Cholesterol Direct HDL Cholesterol Urine Creatinine Hepatitis C Antibody Crossmatch Crossmatch [place] 11/25/17 11/25/17 11/26/17 04:19 04:19 06:29 WBC 22.5 H RBC 3.48 L Hgb 9.1 L Hct 28.3 L MCV 81 L MCH 26 L MCHC RDW 17.4 H Plt Count Lymph % (Auto) [place] % (Auto) Eos % (Auto) Lymph # [place] # Eos # Seg Neutrophils % Seg Neuts % (Manual) Lymphocytes % (Manual) Monocytes % (Manual) Eosinophils % (Manual) Nucleated RBC % Seg Neutrophils # Seg Neutrophils # Man Lymphocytes # (Manual) Monocytes # (Manual) Eosinophils # (Manual) PT 23.6 H INR 1.96 H POC ABG pH POC ABG pCO2 POC ABG pO2 Sodium Potassium Chloride Carbon Dioxide BUN 31 H Creatinine 2.6 H Glucose 101 H POC Glucose Lactic Acid Calcium 7.5 L Phosphorus Magnesium AST ALT Alkaline Phosphatase Troponin T C-Reactive Protein Total Protein Albumin LDL Cholesterol Direct HDL Cholesterol Urine Creatinine Hepatitis C Antibody Crossmatch Crossmatch [place] 11/26/17 11/27/17 11/27/17 06:34 04:06 04:06 WBC 11.3 H RBC 3.13 L Hgb 8.4 L Hct 25.8 L MCV 82 L MCH 27 L MCHC RDW 17.7 H Plt Count Lymph % (Auto) 7.4 L [place] % (Auto) Eos % (Auto) Lymph # 0.8 L [place] # Eos # Seg Neutrophils % 83.7 H Seg Neuts % (Manual) Lymphocytes % (Manual) Monocytes % (Manual) Eosinophils % (Manual) Nucleated RBC % Seg Neutrophils # 9.5 H Seg Neutrophils # Man Lymphocytes # (Manual) Monocytes # (Manual) Eosinophils # (Manual) PT INR POC ABG pH POC ABG pCO2 POC ABG pO2 Sodium Potassium Chloride 97.9 L Carbon Dioxide BUN 43 H 29 H Creatinine 3.5 H 2.9 H Glucose POC Glucose Lactic Acid Calcium 7.5 L 8.1 L Phosphorus Magnesium AST ALT Alkaline Phosphatase Troponin T C-Reactive Protein Total Protein Albumin LDL Cholesterol Direct HDL Cholesterol Urine Creatinine Hepatitis C Antibody Crossmatch Crossmatch [facility] 11/27/17 11/28/17 11/28/17 18:11 00:16 03:50 WBC RBC Hgb Hct MCV MCH MCHC RDW Plt Count Lymph % (Auto) [place] % (Auto) Eos % (Auto) Lymph # [place] # Eos # Seg Neutrophils % Seg Neuts % (Manual) Lymphocytes % (Manual) Monocytes % (Manual) Eosinophils % (Manual) Nucleated RBC % Seg Neutrophils # Seg Neutrophils # Man Lymphocytes # (Manual) Monocytes # (Manual) Eosinophils # (Manual) PT INR POC ABG pH POC ABG pCO2 POC ABG pO2 Sodium Potassium Chloride Carbon Dioxide BUN 39 H Creatinine 4.1 H Glucose 108 H POC Glucose 110 H 124 H Lactic Acid Calcium 7.9 L Phosphorus Magnesium AST ALT Alkaline Phosphatase Troponin T C-Reactive Protein Total Protein Albumin LDL Cholesterol Direct HDL Cholesterol Urine Creatinine Hepatitis C Antibody Crossmatch Crossmatch [facility] 11/28/17 11/28/17 11/28/17 05:03 11:36 17:42 WBC RBC Hgb Hct MCV MCH MCHC RDW Plt Count Lymph % (Auto) [place] % (Auto) Eos % (Auto) Lymph # [place] # Eos # Seg Neutrophils % Seg Neuts % (Manual) Lymphocytes % (Manual) Monocytes % (Manual) Eosinophils % (Manual) Nucleated RBC % Seg Neutrophils # Seg Neutrophils # Man Lymphocytes # (Manual) Monocytes # (Manual) Eosinophils # (Manual) PT INR POC ABG pH POC ABG pCO2 POC ABG pO2 Sodium Potassium Chloride Carbon Dioxide BUN Creatinine Glucose POC Glucose 134 H 114 H 119 H Lactic Acid Calcium Phosphorus Magnesium AST ALT Alkaline Phosphatase Troponin T C-Reactive Protein Total Protein Albumin LDL Cholesterol Direct HDL Cholesterol Urine Creatinine Hepatitis C Antibody Crossmatch Crossmatch [facility] 11/29/17 11/29/17 11/29/17 00:22 05:25 05:25 WBC 12.3 H RBC 3.34 L Hgb 8.6 L Hct 27.3 L MCV 82 L MCH 26 L MCHC RDW 18.5 H Plt Count Lymph % (Auto) 3.7 L [place] % (Auto) 7.7 H Eos % (Auto) Lymph # 0.5 L [place] # 1.0 H Eos # Seg Neutrophils % 86.5 H Seg Neuts % (Manual) Lymphocytes % (Manual) Monocytes % (Manual) Eosinophils % (Manual) Nucleated RBC % Seg Neutrophils # 10.7 H Seg Neutrophils # Man Lymphocytes # (Manual) Monocytes # (Manual) Eosinophils # (Manual) PT INR POC ABG pH POC ABG pCO2 POC ABG pO2 Sodium Potassium Chloride Carbon Dioxide BUN 29 H Creatinine 3.5 H Glucose 109 H POC Glucose 137 H Lactic Acid Calcium 7.8 L Phosphorus Magnesium AST ALT Alkaline Phosphatase Troponin T C-Reactive Protein Total Protein Albumin LDL Cholesterol Direct HDL Cholesterol Urine Creatinine Hepatitis C Antibody Crossmatch Crossmatch [facility] 11/29/17 11/30/17 11/30/17 05:26 00:26 04:17 WBC RBC Hgb Hct MCV MCH MCHC RDW Plt Count Lymph % (Auto) [place] % (Auto) Eos % (Auto) Lymph # [place] # Eos # Seg Neutrophils % Seg Neuts % (Manual) Lymphocytes % (Manual) Monocytes % (Manual) Eosinophils % (Manual) Nucleated RBC % Seg Neutrophils # Seg Neutrophils # Man Lymphocytes # (Manual) Monocytes # (Manual) Eosinophils # (Manual) PT INR POC ABG pH POC ABG pCO2 POC ABG pO2 Sodium Potassium Chloride Carbon Dioxide BUN 38 H Creatinine 4.3 H Glucose 109 H POC Glucose 129 H 152 H Lactic Acid Calcium 7.8 L Phosphorus Magnesium AST ALT Alkaline Phosphatase Troponin T C-Reactive Protein Total Protein Albumin LDL Cholesterol Direct HDL Cholesterol Urine Creatinine Hepatitis C Antibody Crossmatch Crossmatch [facility] 11/30/17 11/30/17 11/30/17 12:17 16:23 23:35 WBC RBC Hgb Hct MCV MCH MCHC RDW Plt Count Lymph % (Auto) [place] % (Auto) Eos % (Auto) Lymph # [place] # Eos # Seg Neutrophils % Seg Neuts % (Manual) Lymphocytes % (Manual) Monocytes % (Manual) Eosinophils % (Manual) Nucleated RBC % Seg Neutrophils # Seg Neutrophils # Man Lymphocytes # (Manual) Monocytes # (Manual) Eosinophils # (Manual) PT INR POC ABG pH POC ABG pCO2 POC ABG pO2 Sodium Potassium Chloride Carbon Dioxide BUN Creatinine Glucose POC Glucose 170 H 114 H 122 H Lactic Acid Calcium Phosphorus Magnesium AST ALT Alkaline Phosphatase Troponin T C-Reactive Protein Total Protein Albumin LDL Cholesterol Direct HDL Cholesterol Urine Creatinine Hepatitis C Antibody Crossmatch Crossmatch [facility] 12/01/17 12/01/17 12/01/17 04:09 04:09 12:17 WBC 14.1 H RBC 3.32 L Hgb 8.6 L Hct 27.0 L MCV 81 L MCH 26 L MCHC RDW 18.7 H Plt Count Lymph % (Auto) 5.5 L [place] % (Auto) 9.7 H Eos % (Auto) Lymph # 0.8 L [place] # 1.4 H Eos # Seg Neutrophils % 82.9 H Seg Neuts % (Manual) Lymphocytes % (Manual) Monocytes % (Manual) Eosinophils % (Manual) Nucleated RBC % Seg Neutrophils # 11.7 H Seg Neutrophils # Man Lymphocytes # (Manual) Monocytes # (Manual) Eosinophils # (Manual) PT INR POC ABG pH POC ABG pCO2 POC ABG pO2 Sodium Potassium 3.4 L Chloride Carbon Dioxide BUN 21 H Creatinine 3.0 H Glucose 108 H POC Glucose 126 H Lactic Acid Calcium 8.0 L Phosphorus Magnesium AST ALT Alkaline Phosphatase Troponin T C-Reactive Protein Total Protein Albumin LDL Cholesterol Direct HDL Cholesterol Urine Creatinine Hepatitis C Antibody Crossmatch Crossmatch [facility] 12/02/17 12/03/17 12/03/17 23:46 02:52 05:54 WBC 17.2 H RBC 3.21 L Hgb 8.5 L Hct 25.8 L MCV 80 L MCH 26 L MCHC RDW 18.4 H Plt Count 128 L Lymph % (Auto) [place] % (Auto) Eos % (Auto) Lymph # [place] # Eos # Seg Neutrophils % Seg Neuts % (Manual) Lymphocytes % (Manual) Monocytes % (Manual) Eosinophils % (Manual) Nucleated RBC % Seg Neutrophils # Seg Neutrophils # Man Lymphocytes # (Manual) Monocytes # (Manual) Eosinophils # (Manual) PT INR POC ABG pH POC ABG pCO2 POC ABG pO2 Sodium Potassium Chloride Carbon Dioxide BUN Creatinine Glucose POC Glucose 125 H 107 H Lactic Acid Calcium Phosphorus Magnesium AST ALT Alkaline Phosphatase Troponin T C-Reactive Protein Total Protein Albumin LDL Cholesterol Direct HDL Cholesterol Urine Creatinine Hepatitis C Antibody Crossmatch Crossmatch [facility] 12/03/17 12/03/17 12/04/17 12:05 Unknown 12:26 WBC RBC Hgb Hct MCV MCH MCHC RDW Plt Count Lymph % (Auto) [place] % (Auto) Eos % (Auto) Lymph # [place] # Eos # Seg Neutrophils % Seg Neuts % (Manual) Lymphocytes % (Manual) Monocytes % (Manual) Eosinophils % (Manual) Nucleated RBC % Seg Neutrophils # Seg Neutrophils # Man Lymphocytes # (Manual) Monocytes # (Manual) Eosinophils # (Manual) PT INR POC ABG pH POC ABG pCO2 POC ABG pO2 Sodium Potassium Chloride Carbon Dioxide BUN 21 H Creatinine 2.8 H Glucose 113 H POC Glucose 106 H 119 H Lactic Acid Calcium Phosphorus Magnesium AST ALT Alkaline Phosphatase Troponin T C-Reactive Protein Total Protein Albumin LDL Cholesterol Direct HDL Cholesterol Urine Creatinine Hepatitis C Antibody Crossmatch Crossmatch [facility] 12/04/17 12/05/17 12/05/17 17:57 00:52 04:05 WBC RBC 2.96 L Hgb 7.7 L Hct 24.2 L MCV 82 L MCH 26 L MCHC RDW 18.8 H Plt Count 105 L Lymph % (Auto) 10.6 L [place] % (Auto) 12.1 H Eos % (Auto) 5.2 H Lymph # 1.1 L [place] # 1.3 H Eos # 0.5 H Seg Neutrophils % 71.3 H Seg Neuts % (Manual) Lymphocytes % (Manual) Monocytes % (Manual) Eosinophils % (Manual) Nucleated RBC % Seg Neutrophils # Seg Neutrophils # Man Lymphocytes # (Manual) Monocytes # (Manual) Eosinophils # (Manual) PT INR POC ABG pH POC ABG pCO2 POC ABG pO2 Sodium Potassium Chloride Carbon Dioxide BUN Creatinine Glucose POC Glucose 140 H 117 H Lactic Acid Calcium Phosphorus Magnesium AST ALT Alkaline Phosphatase Troponin T C-Reactive Protein Total Protein Albumin LDL Cholesterol Direct HDL Cholesterol Urine Creatinine Hepatitis C Antibody Crossmatch Crossmatch [facility] 12/05/17 12/05/17 12/06/17 04:05 22:50 08:18 WBC RBC 2.80 L Hgb 7.4 L Hct 23.0 L MCV 82 L MCH 27 L MCHC RDW 19.5 H Plt Count 125 L Lymph % (Auto) [place] % (Auto) Eos % (Auto) Lymph # [place] # Eos # Seg Neutrophils % Seg Neuts % (Manual) Lymphocytes % (Manual) Monocytes % (Manual) Eosinophils % (Manual) Nucleated RBC % Seg Neutrophils # Seg Neutrophils # Man Lymphocytes # (Manual) Monocytes # (Manual) Eosinophils # (Manual) PT INR POC ABG pH POC ABG pCO2 POC ABG pO2 Sodium Potassium Chloride 107.4 H Carbon Dioxide BUN Creatinine 2.5 H Glucose POC Glucose 112 H Lactic Acid Calcium 8.3 L Phosphorus Magnesium AST ALT Alkaline Phosphatase Troponin T C-Reactive Protein Total Protein Albumin LDL Cholesterol Direct HDL Cholesterol Urine Creatinine Hepatitis C Antibody Crossmatch Crossmatch [facility] 12/06/17 12/06/17 12/06/17 08:18 12:01 23:58 WBC RBC Hgb Hct MCV MCH MCHC RDW Plt Count Lymph % (Auto) [place] % (Auto) Eos % (Auto) Lymph # [place] # Eos # Seg Neutrophils % Seg Neuts % (Manual) Lymphocytes % (Manual) Monocytes % (Manual) Eosinophils % (Manual) Nucleated RBC % Seg Neutrophils # Seg Neutrophils # Man Lymphocytes # (Manual) Monocytes # (Manual) Eosinophils # (Manual) PT INR POC ABG pH POC ABG pCO2 POC ABG pO2 Sodium Potassium Chloride 108.4 H Carbon Dioxide BUN 28 H Creatinine 3.7 H Glucose 103 H POC Glucose 106 H 108 H Lactic Acid Calcium 8.0 L Phosphorus Magnesium AST ALT Alkaline Phosphatase Troponin T C-Reactive Protein Total Protein Albumin LDL Cholesterol Direct HDL Cholesterol Urine Creatinine Hepatitis C Antibody Crossmatch Crossmatch [facility] 12/07/17 12/07/17 12/07/17 05:47 05:47 18:03 WBC RBC 2.79 L Hgb 7.3 L Hct 22.8 L MCV 82 L MCH 26 L MCHC RDW 19.1 H Plt Count 101 L Lymph % (Auto) [place] % (Auto) Eos % (Auto) Lymph # [place] # Eos # Seg Neutrophils % Seg Neuts % (Manual) 72.0 H Lymphocytes % (Manual) 13.0 L Monocytes % (Manual) Eosinophils % (Manual) 9.0 H Nucleated RBC % Seg Neutrophils # Seg Neutrophils # Man Lymphocytes # (Manual) 1.1 L Monocytes # (Manual) Eosinophils # (Manual) 0.8 H PT INR POC ABG pH POC ABG pCO2 POC ABG pO2 Sodium 146 H Potassium Chloride 109.8 H Carbon Dioxide BUN 36 H Creatinine 4.0 H Glucose POC Glucose 143 H Lactic Acid Calcium 8.0 L Phosphorus Magnesium AST ALT Alkaline Phosphatase Troponin T C-Reactive Protein Total Protein Albumin LDL Cholesterol Direct HDL Cholesterol Urine Creatinine Hepatitis C Antibody Crossmatch Crossmatch [facility] 12/07/17 12/08/17 12/08/17 23:33 05:10 05:10 WBC RBC 2.91 L Hgb 7.5 L Hct 24.4 L MCV MCH 26 L MCHC 31 L RDW 19.7 H Plt Count 109 L Lymph % (Auto) [place] % (Auto) Eos % (Auto) Lymph # [place] # Eos # Seg Neutrophils % Seg Neuts % (Manual) Lymphocytes % (Manual) 11.0 L Monocytes % (Manual) Eosinophils % (Manual) 12.0 H Nucleated RBC % Seg Neutrophils # Seg Neutrophils # Man Lymphocytes # (Manual) 0.7 L Monocytes # (Manual) Eosinophils # (Manual) 0.7 H PT INR POC ABG pH POC ABG pCO2 POC ABG pO2 Sodium 147 H Potassium Chloride 110.4 H Carbon Dioxide BUN Creatinine 2.8 H Glucose POC Glucose 107 H Lactic Acid Calcium 7.8 L Phosphorus Magnesium AST ALT Alkaline Phosphatase Troponin T C-Reactive Protein Total Protein Albumin LDL Cholesterol Direct HDL Cholesterol Urine Creatinine Hepatitis C Antibody Crossmatch Crossmatch [facility] 12/09/17 12/09/17 12/09/17 04:18 04:18 12:16 WBC RBC Hgb 7.2 L Hct 23.2 L MCV MCH MCHC RDW Plt Count Lymph % (Auto) [place] % (Auto) Eos % (Auto) Lymph # [place] # Eos # Seg Neutrophils % Seg Neuts % (Manual) Lymphocytes % (Manual) Monocytes % (Manual) Eosinophils % (Manual) Nucleated RBC % Seg Neutrophils # Seg Neutrophils # Man Lymphocytes # (Manual) Monocytes # (Manual) Eosinophils # (Manual) PT INR POC ABG pH POC ABG pCO2 POC ABG pO2 Sodium 150 H Potassium Chloride 114.5 H Carbon Dioxide BUN 25 H Creatinine 3.3 H Glucose POC Glucose 142 H Lactic Acid Calcium 7.7 L Phosphorus Magnesium AST ALT Alkaline Phosphatase Troponin T C-Reactive Protein Total Protein Albumin LDL Cholesterol Direct HDL Cholesterol Urine Creatinine Hepatitis C Antibody Crossmatch Crossmatch [facility] 12/10/17 12/10/17 12/11/17 05:14 05:14 12:05 WBC RBC 2.81 L Hgb 7.4 L Hct 23.9 L MCV MCH 26 L MCHC 31 L RDW 19.1 H Plt Count 128 L Lymph % (Auto) [place] % (Auto) Eos % (Auto) Lymph # [place] # Eos # Seg Neutrophils % Seg Neuts % (Manual) 78.0 H Lymphocytes % (Manual) 8.0 L Monocytes % (Manual) Eosinophils % (Manual) 5.0 H Nucleated RBC % Seg Neutrophils # Seg Neutrophils # Man Lymphocytes # (Manual) 0.6 L Monocytes # (Manual) Eosinophils # (Manual) PT INR POC ABG pH POC ABG pCO2 POC ABG pO2 Sodium Potassium Chloride Carbon Dioxide BUN Creatinine 2.2 H Glucose POC Glucose 127 H Lactic Acid Calcium 7.8 L Phosphorus Magnesium AST ALT Alkaline Phosphatase Troponin T C-Reactive Protein Total Protein Albumin LDL Cholesterol Direct HDL Cholesterol Urine Creatinine Hepatitis C Antibody Crossmatch Crossmatch [facility] 12/11/17 12/11/17 12/11/17 15:26 18:36 23:40 WBC RBC Hgb Hct MCV MCH MCHC RDW Plt Count Lymph % (Auto) [place] % (Auto) Eos % (Auto) Lymph # [place] # Eos # Seg Neutrophils % Seg Neuts % (Manual) Lymphocytes % (Manual) Monocytes % (Manual) Eosinophils % (Manual) Nucleated RBC % Seg Neutrophils # Seg Neutrophils # Man Lymphocytes # (Manual) Monocytes # (Manual) Eosinophils # (Manual) PT INR POC ABG pH POC ABG pCO2 POC ABG pO2 Sodium Potassium 3.3 L Chloride Carbon Dioxide BUN Creatinine 1.6 H Glucose POC Glucose 106 H 110 H Lactic Acid Calcium 7.6 L Phosphorus Magnesium AST ALT Alkaline Phosphatase Troponin T C-Reactive Protein Total Protein Albumin LDL Cholesterol Direct HDL Cholesterol Urine Creatinine Hepatitis C Antibody Crossmatch Crossmatch [facility] 12/12/17 12/12/17 12/12/17 05:10 05:41 05:41 WBC RBC 3.17 L Hgb 8.1 L Hct 25.7 L MCV 81 L MCH 25 L MCHC 31 L RDW 19.2 H Plt Count Lymph % (Auto) [place] % (Auto) Eos % (Auto) Lymph # [place] # Eos # Seg Neutrophils % Seg Neuts % (Manual) 74.0 H Lymphocytes % (Manual) 6.0 L Monocytes % (Manual) Eosinophils % (Manual) 9.0 H Nucleated RBC % Seg Neutrophils # Seg Neutrophils # Man Lymphocytes # (Manual) 0.6 L Monocytes # (Manual) Eosinophils # (Manual) 0.9 H PT INR POC ABG pH POC ABG pCO2 POC ABG pO2 Sodium Potassium 3.5 L Chloride Carbon Dioxide BUN Creatinine 2.3 H Glucose 113 H POC Glucose 112 H Lactic Acid Calcium 7.5 L Phosphorus Magnesium AST ALT Alkaline Phosphatase Troponin T C-Reactive Protein Total Protein Albumin LDL Cholesterol Direct HDL Cholesterol Urine Creatinine Hepatitis C Antibody Crossmatch Crossmatch [facility] 12/13/17 12/13/17 12/13/17 06:14 12:00 17:37 WBC RBC Hgb Hct MCV MCH MCHC RDW Plt Count Lymph % (Auto) [place] % (Auto) Eos % (Auto) Lymph # [place] # Eos # Seg Neutrophils % Seg Neuts % (Manual) Lymphocytes % (Manual) Monocytes % (Manual) Eosinophils % (Manual) Nucleated RBC % Seg Neutrophils # Seg Neutrophils # Man Lymphocytes # (Manual) Monocytes # (Manual) Eosinophils # (Manual) PT INR POC ABG pH POC ABG pCO2 POC ABG pO2 Sodium Potassium Chloride Carbon Dioxide BUN Creatinine Glucose POC Glucose 130 H 133 H 136 H Lactic Acid Calcium Phosphorus Magnesium AST ALT Alkaline Phosphatase Troponin T C-Reactive Protein Total Protein Albumin LDL Cholesterol Direct HDL Cholesterol Urine Creatinine Hepatitis C Antibody Crossmatch Crossmatch [facility] 12/13/17 12/14/17 12/14/17 23:39 05:11 05:11 WBC RBC Hgb Hct MCV MCH MCHC RDW Plt Count Lymph % (Auto) [place] % (Auto) Eos % (Auto) Lymph # [place] # Eos # Seg Neutrophils % Seg Neuts % (Manual) Lymphocytes % (Manual) Monocytes % (Manual) Eosinophils % (Manual) Nucleated RBC % Seg Neutrophils # Seg Neutrophils # Man Lymphocytes # (Manual) Monocytes # (Manual) Eosinophils # (Manual) PT 15.4 H INR 1.17 H POC ABG pH POC ABG pCO2 POC ABG pO2 Sodium Potassium Chloride Carbon Dioxide 21 L BUN 26 H Creatinine 2.9 H Glucose POC Glucose 108 H Lactic Acid Calcium 7.2 L Phosphorus Magnesium AST ALT Alkaline Phosphatase Troponin T C-Reactive Protein Total Protein Albumin LDL Cholesterol Direct HDL Cholesterol Urine Creatinine Hepatitis C Antibody Crossmatch Crossmatch [facility] 12/14/17 12/14/17 12/14/17 12:00 16:01 18:24 WBC 12.9 H RBC 3.25 L Hgb 8.2 L Hct 26.2 L MCV 81 L MCH 25 L MCHC 31 L RDW 19.2 H Plt Count Lymph % (Auto) [place] % (Auto) Eos % (Auto) Lymph # [place] # Eos # Seg Neutrophils % Seg Neuts % (Manual) Lymphocytes % (Manual) Monocytes % (Manual) Eosinophils % (Manual) Nucleated RBC % Seg Neutrophils # Seg Neutrophils # Man Lymphocytes # (Manual) Monocytes # (Manual) Eosinophils # (Manual) PT INR POC ABG pH POC ABG pCO2 POC ABG pO2 Sodium Potassium Chloride Carbon Dioxide BUN Creatinine Glucose POC Glucose 138 H 120 H Lactic Acid Calcium Phosphorus Magnesium AST ALT Alkaline Phosphatase Troponin T C-Reactive Protein Total Protein Albumin LDL Cholesterol Direct HDL Cholesterol Urine Creatinine Hepatitis C Antibody Crossmatch Crossmatch [facility] 12/14/17 12/14/17 12/15/17 23:29 Unknown 05:57 WBC 12.5 H RBC 2.48 L Hgb 6.0 L Hct 24.4 L MCV 79 L MCH 24 L MCHC 30 L RDW 18.5 H Plt Count 131 L Lymph % (Auto) 7.0 L [place] % (Auto) 8.9 H Eos % (Auto) 8.3 H Lymph # 0.9 L [place] # 1.1 H Eos # 1.0 H Seg Neutrophils % 75.2 H Seg Neuts % (Manual) Lymphocytes % (Manual) Monocytes % (Manual) Eosinophils % (Manual) Nucleated RBC % Seg Neutrophils # 9.4 H Seg Neutrophils # Man Lymphocytes # (Manual) Monocytes # (Manual) Eosinophils # (Manual) PT INR POC ABG pH POC ABG pCO2 POC ABG pO2 Sodium Potassium Chloride Carbon Dioxide BUN Creatinine Glucose POC Glucose 110 H 113 H Lactic Acid Calcium Phosphorus Magnesium AST ALT Alkaline Phosphatase Troponin T C-Reactive Protein Total Protein Albumin LDL Cholesterol Direct HDL Cholesterol Urine Creatinine Hepatitis C Antibody Crossmatch Crossmatch [facility] 12/15/17 12/15/17 12/15/17 11:50 13:37 17:58 WBC RBC Hgb 7.3 L Hct 23.3 L MCV MCH MCHC RDW Plt Count Lymph % (Auto) [place] % (Auto) Eos % (Auto) Lymph # [place] # Eos # Seg Neutrophils % Seg Neuts % (Manual) Lymphocytes % (Manual) Monocytes % (Manual) Eosinophils % (Manual) Nucleated RBC % Seg Neutrophils # Seg Neutrophils # Man Lymphocytes # (Manual) Monocytes # (Manual) Eosinophils # (Manual) PT INR POC ABG pH POC ABG pCO2 POC ABG pO2 Sodium Potassium Chloride Carbon Dioxide BUN Creatinine Glucose POC Glucose 106 H 110 H Lactic Acid Calcium Phosphorus Magnesium AST ALT Alkaline Phosphatase Troponin T C-Reactive Protein Total Protein Albumin LDL Cholesterol Direct HDL Cholesterol Urine Creatinine Hepatitis C Antibody Crossmatch Crossmatch [facility] 12/15/17 12/16/17 12/16/17 23:30 04:55 05:14 WBC 13.2 H RBC 2.79 L Hgb 6.9 L Hct 22.2 L MCV 80 L MCH 25 L MCHC 31 L RDW 18.8 H Plt Count Lymph % (Auto) 7.3 L [place] % (Auto) 11.0 H Eos % (Auto) 8.2 H Lymph # 1.0 L [place] # 1.4 H Eos # 1.1 H Seg Neutrophils % 72.9 H Seg Neuts % (Manual) Lymphocytes % (Manual) Monocytes % (Manual) Eosinophils % (Manual) Nucleated RBC % Seg Neutrophils # 9.6 H Seg Neutrophils # Man Lymphocytes # (Manual) Monocytes # (Manual) Eosinophils # (Manual) PT INR POC ABG pH POC ABG pCO2 POC ABG pO2 Sodium 131 L D Potassium 2.8 L* D Chloride 93.2 L Carbon Dioxide BUN 24 H Creatinine 2.0 H Glucose POC Glucose 111 H Lactic Acid Calcium 7.7 L Phosphorus Magnesium AST ALT Alkaline Phosphatase Troponin T C-Reactive Protein Total Protein Albumin LDL Cholesterol Direct HDL Cholesterol Urine Creatinine Hepatitis C Antibody Crossmatch Crossmatch [facility] 12/16/17 12/16/17 12/16/17 13:01 17:32 23:39 WBC RBC Hgb Hct MCV MCH MCHC RDW Plt Count Lymph % (Auto) [place] % (Auto) Eos % (Auto) Lymph # [place] # Eos # Seg Neutrophils % Seg Neuts % (Manual) Lymphocytes % (Manual) Monocytes % (Manual) Eosinophils % (Manual) Nucleated RBC % Seg Neutrophils # Seg Neutrophils # Man Lymphocytes # (Manual) Monocytes # (Manual) Eosinophils # (Manual) PT INR POC ABG pH POC ABG pCO2 POC ABG pO2 Sodium Potassium Chloride Carbon Dioxide BUN Creatinine Glucose POC Glucose 121 H 107 H Lactic Acid Calcium Phosphorus Magnesium AST ALT Alkaline Phosphatase Troponin T C-Reactive Protein Total Protein Albumin LDL Cholesterol Direct HDL Cholesterol Urine Creatinine Hepatitis C Antibody Crossmatch Crossmatch [facility] See Detail 12/17/17 12/17/17 12/17/17 05:08 05:08 12:03 WBC 12.9 H RBC 2.88 L Hgb 7.2 L Hct 22.6 L MCV 78 L MCH 25 L MCHC RDW 18.3 H Plt Count Lymph % (Auto) 8.0 L [place] % (Auto) 8.6 H Eos % (Auto) Lymph # 1.0 L [place] # 1.1 H Eos # Seg Neutrophils % 79.3 H Seg Neuts % (Manual) Lymphocytes % (Manual) Monocytes % (Manual) Eosinophils % (Manual) Nucleated RBC % Seg Neutrophils # 10.2 H Seg Neutrophils # Man Lymphocytes # (Manual) Monocytes # (Manual) Eosinophils # (Manual) PT INR POC ABG pH POC ABG pCO2 POC ABG pO2 Sodium Potassium 3.4 L D Chloride Carbon Dioxide BUN Creatinine Glucose 104 H POC Glucose 109 H Lactic Acid Calcium 7.6 L Phosphorus Magnesium 1.30 L AST ALT Alkaline Phosphatase 177 H Troponin T C-Reactive Protein Total Protein Albumin 2.0 L LDL Cholesterol Direct HDL Cholesterol Urine Creatinine Hepatitis C Antibody Crossmatch Crossmatch [facility] 12/17/17 12/18/17 12/18/17 23:40 00:50 00:50 WBC 22.6 H RBC 2.76 L Hgb 6.7 L Hct 21.6 L MCV 78 L MCH 24 L MCHC 31 L RDW 18.4 H Plt Count Lymph % (Auto) [place] % (Auto) Eos % (Auto) Lymph # [place] # Eos # Seg Neutrophils % Seg Neuts % (Manual) Lymphocytes % (Manual) Monocytes % (Manual) Eosinophils % (Manual) Nucleated RBC % Seg Neutrophils # Seg Neutrophils # Man Lymphocytes # (Manual) Monocytes # (Manual) Eosinophils # (Manual) PT INR POC ABG pH POC ABG pCO2 POC ABG pO2 Sodium Potassium Chloride Carbon Dioxide BUN 22 H Creatinine 1.6 H Glucose 113 H POC Glucose 120 H Lactic Acid Calcium 7.8 L Phosphorus Magnesium 1.50 L AST ALT Alkaline Phosphatase Troponin T C-Reactive Protein Total Protein Albumin LDL Cholesterol Direct HDL Cholesterol Urine Creatinine Hepatitis C Antibody Crossmatch Crossmatch [facility] 12/18/17 12/18/17 12/18/17 05:34 12:00 18:07 WBC RBC Hgb Hct MCV MCH MCHC RDW Plt Count Lymph % (Auto) [place] % (Auto) Eos % (Auto) Lymph # [place] # Eos # Seg Neutrophils % Seg Neuts % (Manual) Lymphocytes % (Manual) Monocytes % (Manual) Eosinophils % (Manual) Nucleated RBC % Seg Neutrophils # Seg Neutrophils # Man Lymphocytes # (Manual) Monocytes # (Manual) Eosinophils # (Manual) PT INR POC ABG pH POC ABG pCO2 POC ABG pO2 Sodium Potassium Chloride Carbon Dioxide BUN Creatinine Glucose POC Glucose 132 H 136 H 122 H Lactic Acid Calcium Phosphorus Magnesium AST ALT Alkaline Phosphatase Troponin T C-Reactive Protein Total Protein Albumin LDL Cholesterol Direct HDL Cholesterol Urine Creatinine Hepatitis C Antibody Crossmatch Crossmatch [facility] 12/19/17 12/19/17 12/19/17 00:24 00:24 05:17 WBC 15.4 H RBC 2.41 L Hgb 6.1 L Hct 19.0 L* MCV 79 L MCH 25 L MCHC RDW 18.5 H Plt Count Lymph % (Auto) [place] % (Auto) Eos % (Auto) Lymph # [place] # Eos # Seg Neutrophils % Seg Neuts % (Manual) Lymphocytes % (Manual) Monocytes % (Manual) Eosinophils % (Manual) Nucleated RBC % Seg Neutrophils # Seg Neutrophils # Man Lymphocytes # (Manual) Monocytes # (Manual) Eosinophils # (Manual) PT INR POC ABG pH POC ABG pCO2 POC ABG pO2 Sodium Potassium 3.2 L Chloride Carbon Dioxide BUN Creatinine Glucose 117 H POC Glucose 132 H Lactic Acid Calcium 8.2 L Phosphorus Magnesium 1.50 L AST ALT Alkaline Phosphatase Troponin T C-Reactive Protein Total Protein Albumin LDL Cholesterol Direct HDL Cholesterol Urine Creatinine Hepatitis C Antibody Crossmatch Crossmatch [facility] 12/19/17 12/19/17 12/19/17 09:00 09:00 18:01 WBC 12.4 H RBC 2.86 L Hgb 7.2 L Hct 22.6 L MCV 79 L MCH 25 L MCHC RDW 17.2 H Plt Count Lymph % (Auto) 6.8 L [place] % (Auto) 12.6 H Eos % (Auto) Lymph # 0.8 L [place] # 1.6 H Eos # Seg Neutrophils % 80.1 H Seg Neuts % (Manual) Lymphocytes % (Manual) Monocytes % (Manual) Eosinophils % (Manual) Nucleated RBC % Seg Neutrophils # 10.0 H Seg Neutrophils # Man Lymphocytes # (Manual) Monocytes # (Manual) Eosinophils # (Manual) PT INR POC ABG pH POC ABG pCO2 POC ABG pO2 Sodium Potassium 3.1 L Chloride Carbon Dioxide BUN 22 H Creatinine Glucose 113 H POC Glucose 117 H Lactic Acid Calcium 8.3 L Phosphorus Magnesium AST 54 H ALT Alkaline Phosphatase 204 H Troponin T C-Reactive Protein Total Protein 5.8 L Albumin 2.0 L LDL Cholesterol Direct HDL Cholesterol Urine Creatinine Hepatitis C Antibody Crossmatch Crossmatch [facility] 12/19/17 12/20/17 12/20/17 23:49 05:53 19:00 WBC RBC 3.03 L Hgb 7.7 L Hct 23.7 L MCV 78 L MCH 25 L MCHC RDW 17.2 H Plt Count Lymph % (Auto) [place] % (Auto) Eos % (Auto) Lymph # [place] # Eos # Seg Neutrophils % Seg Neuts % (Manual) 74.0 H Lymphocytes % (Manual) 6.0 L Monocytes % (Manual) 17.0 H Eosinophils % (Manual) Nucleated RBC % Seg Neutrophils # Seg Neutrophils # Man Lymphocytes # (Manual) 0.5 L Monocytes # (Manual) 1.5 H Eosinophils # (Manual) PT INR POC ABG pH POC ABG pCO2 POC ABG pO2 Sodium Potassium Chloride Carbon Dioxide BUN Creatinine Glucose POC Glucose 125 H 124 H Lactic Acid Calcium Phosphorus Magnesium AST ALT Alkaline Phosphatase Troponin T C-Reactive Protein Total Protein Albumin LDL Cholesterol Direct HDL Cholesterol Urine Creatinine Hepatitis C Antibody Crossmatch Crossmatch Prewarmed 12/20/17 12/21/17 12/22/17 19:00 23:54 05:07 WBC RBC Hgb Hct MCV MCH MCHC RDW Plt Count Lymph % (Auto) [place] % (Auto) Eos % (Auto) Lymph # [place] # Eos # Seg Neutrophils % Seg Neuts % (Manual) Lymphocytes % (Manual) Monocytes % (Manual) Eosinophils % (Manual) Nucleated RBC % Seg Neutrophils # Seg Neutrophils # Man Lymphocytes # (Manual) Monocytes # (Manual) Eosinophils # (Manual) PT INR POC ABG pH POC ABG pCO2 POC ABG pO2 Sodium Potassium 3.3 L 2.9 L* Chloride Carbon Dioxide BUN 37 H 43 H Creatinine Glucose 114 H POC Glucose 109 H Lactic Acid Calcium 8.3 L 7.8 L Phosphorus 1.60 L Magnesium 1.50 L AST ALT Alkaline Phosphatase Troponin T C-Reactive Protein Total Protein Albumin LDL Cholesterol Direct HDL Cholesterol Urine Creatinine Hepatitis C Antibody Crossmatch Crossmatch Prewarmed 12/22/17 12/22/17 12/22/17 05:07 05:07 06:02 WBC 4.1 L RBC 3.09 L Hgb 7.7 L Hct 24.3 L MCV 79 L MCH 25 L MCHC RDW 17.8 H Plt Count Lymph % (Auto) [place] % (Auto) Eos % (Auto) Lymph # [place] # Eos # Seg Neutrophils % Seg Neuts % (Manual) Lymphocytes % (Manual) Monocytes % (Manual) Eosinophils % (Manual) Nucleated RBC % Seg Neutrophils # Seg Neutrophils # Man Lymphocytes # (Manual) Monocytes # (Manual) Eosinophils # (Manual) PT INR POC ABG pH POC ABG pCO2 POC ABG pO2 Sodium Potassium Chloride Carbon Dioxide BUN Creatinine Glucose POC Glucose 107 H Lactic Acid Calcium Phosphorus Magnesium 1.60 L AST ALT Alkaline Phosphatase Troponin T C-Reactive Protein Total Protein Albumin LDL Cholesterol Direct HDL Cholesterol Urine Creatinine Hepatitis C Antibody Crossmatch Crossmatch Prewarmed 12/22/17 12/22/17 12/22/17 10:50 12:02 17:32 WBC RBC Hgb Hct MCV MCH MCHC RDW Plt Count Lymph % (Auto) [place] % (Auto) Eos % (Auto) Lymph # [place] # Eos # Seg Neutrophils % Seg Neuts % (Manual) Lymphocytes % (Manual) Monocytes % (Manual) Eosinophils % (Manual) Nucleated RBC % Seg Neutrophils # Seg Neutrophils # Man Lymphocytes # (Manual) Monocytes # (Manual) Eosinophils # (Manual) PT INR POC ABG pH POC ABG pCO2 POC ABG pO2 Sodium Potassium Chloride Carbon Dioxide BUN Creatinine Glucose POC Glucose 129 H 111 H Lactic Acid Calcium Phosphorus Magnesium AST ALT Alkaline Phosphatase Troponin T C-Reactive Protein Total Protein Albumin LDL Cholesterol Direct HDL Cholesterol Urine Creatinine 55.8 H Hepatitis C Antibody Crossmatch Crossmatch Prewarmed 12/22/17 12/22/17 12/23/17 19:03 23:57 05:55 WBC RBC Hgb Hct MCV MCH MCHC RDW Plt Count Lymph % (Auto) [place] % (Auto) Eos % (Auto) Lymph # [place] # Eos # Seg Neutrophils % Seg Neuts % (Manual) Lymphocytes % (Manual) Monocytes % (Manual) Eosinophils % (Manual) Nucleated RBC % Seg Neutrophils # Seg Neutrophils # Man Lymphocytes # (Manual) Monocytes # (Manual) Eosinophils # (Manual) PT INR POC ABG pH POC ABG pCO2 POC ABG pO2 Sodium Potassium 3.4 L 2.9 L* Chloride Carbon Dioxide BUN 40 H Creatinine Glucose 107 H POC Glucose 128 H Lactic Acid Calcium 7.9 L Phosphorus Magnesium AST ALT Alkaline Phosphatase Troponin T C-Reactive Protein Total Protein Albumin LDL Cholesterol Direct HDL Cholesterol Urine Creatinine Hepatitis C Antibody Crossmatch Crossmatch Prewarmed 12/23/17 12/23/17 12/23/17 05:55 05:55 11:59 WBC 3.8 L RBC 3.10 L Hgb 7.7 L Hct 25.5 L MCV 82 L MCH 25 L MCHC 30 L RDW 17.9 H Plt Count Lymph % (Auto) [place] % (Auto) Eos % (Auto) Lymph # [place] # Eos # Seg Neutrophils % Seg Neuts % (Manual) Lymphocytes % (Manual) Monocytes % (Manual) Eosinophils % (Manual) Nucleated RBC % Seg Neutrophils # Seg Neutrophils # Man Lymphocytes # (Manual) Monocytes # (Manual) Eosinophils # (Manual) PT INR POC ABG pH POC ABG pCO2 POC ABG pO2 Sodium Potassium Chloride Carbon Dioxide BUN Creatinine Glucose POC Glucose 115 H Lactic Acid Calcium Phosphorus Magnesium 1.60 L AST ALT Alkaline Phosphatase Troponin T C-Reactive Protein Total Protein Albumin LDL Cholesterol Direct HDL Cholesterol Urine Creatinine Hepatitis C Antibody Crossmatch Crossmatch Prewarmed 12/23/17 12/24/17 12/24/17 22:48 00:29 03:17 WBC RBC Hgb Hct MCV MCH MCHC RDW Plt Count Lymph % (Auto) [place] % (Auto) Eos % (Auto) Lymph # [place] # Eos # Seg Neutrophils % Seg Neuts % (Manual) Lymphocytes % (Manual) Monocytes % (Manual) Eosinophils % (Manual) Nucleated RBC % Seg Neutrophils # Seg Neutrophils # Man Lymphocytes # (Manual) Monocytes # (Manual) Eosinophils # (Manual) PT INR POC ABG pH POC ABG pCO2 POC ABG pO2 Sodium 146 H Potassium 2.9 L* 3.4 L Chloride Carbon Dioxide BUN 36 H Creatinine 0.7 L Glucose POC Glucose 111 H Lactic Acid Calcium 7.5 L Phosphorus Magnesium 1.60 L AST 76 H ALT 59 H Alkaline Phosphatase 294 H Troponin T C-Reactive Protein Total Protein 5.8 L Albumin 2.2 L LDL Cholesterol Direct HDL Cholesterol Urine Creatinine Hepatitis C Antibody Crossmatch Crossmatch Prewarmed 12/24/17 12/24/17 12/24/17 03:17 05:14 17:05 WBC RBC 3.03 L Hgb 7.6 L Hct 23.7 L MCV 78 L MCH 25 L MCHC RDW 17.8 H Plt Count Lymph % (Auto) [place] % (Auto) Eos % (Auto) Lymph # [place] # Eos # Seg Neutrophils % Seg Neuts % (Manual) Lymphocytes % (Manual) Monocytes % (Manual) Eosinophils % (Manual) Nucleated RBC % Seg Neutrophils # Seg Neutrophils # Man Lymphocytes # (Manual) Monocytes # (Manual) Eosinophils # (Manual) PT INR POC ABG pH POC ABG pCO2 POC ABG pO2 Sodium Potassium Chloride Carbon Dioxide BUN Creatinine Glucose POC Glucose 127 H 132 H Lactic Acid Calcium Phosphorus Magnesium AST ALT Alkaline Phosphatase Troponin T C-Reactive Protein Total Protein Albumin LDL Cholesterol Direct HDL Cholesterol Urine Creatinine Hepatitis C Antibody Crossmatch Crossmatch Prewarmed 12/25/17 12/25/17 12/25/17 00:03 04:34 06:25 WBC RBC Hgb Hct MCV MCH MCHC RDW Plt Count Lymph % (Auto) [place] % (Auto) Eos % (Auto) Lymph # [place] # Eos # Seg Neutrophils % Seg Neuts % (Manual) Lymphocytes % (Manual) Monocytes % (Manual) Eosinophils % (Manual) Nucleated RBC % Seg Neutrophils # Seg Neutrophils # Man Lymphocytes # (Manual) Monocytes # (Manual) Eosinophils # (Manual) PT INR POC ABG pH POC ABG pCO2 POC ABG pO2 Sodium Potassium Chloride Carbon Dioxide BUN 30 H Creatinine 0.6 L Glucose 114 H POC Glucose 128 H 136 H Lactic Acid Calcium 7.5 L Phosphorus Magnesium AST 84 H ALT 82 H Alkaline Phosphatase 322 H Troponin T C-Reactive Protein Total Protein 6.0 L Albumin 2.3 L LDL Cholesterol Direct HDL Cholesterol Urine Creatinine Hepatitis C Antibody Crossmatch Crossmatch Prewarmed 12/25/17 12/25/17 12/26/17 12:02 18:28 00:03 WBC RBC Hgb Hct MCV MCH MCHC RDW Plt Count Lymph % (Auto) [place] % (Auto) Eos % (Auto) Lymph # [place] # Eos # Seg Neutrophils % Seg Neuts % (Manual) Lymphocytes % (Manual) Monocytes % (Manual) Eosinophils % (Manual) Nucleated RBC % Seg Neutrophils # Seg Neutrophils # Man Lymphocytes # (Manual) Monocytes # (Manual) Eosinophils # (Manual) PT INR POC ABG pH POC ABG pCO2 POC ABG pO2 Sodium Potassium Chloride Carbon Dioxide BUN Creatinine Glucose POC Glucose 158 H 113 H 117 H Lactic Acid Calcium Phosphorus Magnesium AST ALT Alkaline Phosphatase Troponin T C-Reactive Protein Total Protein Albumin LDL Cholesterol Direct HDL Cholesterol Urine Creatinine Hepatitis C Antibody Crossmatch Crossmatch Prewarmed 12/26/17 12/26/17 12/26/17 04:26 06:35 08:47 WBC RBC Hgb Hct MCV MCH MCHC RDW Plt Count Lymph % (Auto) [place] % (Auto) Eos % (Auto) Lymph # [place] # Eos # Seg Neutrophils % Seg Neuts % (Manual) Lymphocytes % (Manual) Monocytes % (Manual) Eosinophils % (Manual) Nucleated RBC % Seg Neutrophils # Seg Neutrophils # Man Lymphocytes # (Manual) Monocytes # (Manual) Eosinophils # (Manual) PT INR POC ABG pH POC ABG pCO2 POC ABG pO2 Sodium Potassium 5.4 H D 3.3 L D Chloride Carbon Dioxide 21 L BUN 39 H Creatinine 0.7 L Glucose 121 H POC Glucose 122 H Lactic Acid Calcium 7.8 L Phosphorus Magnesium AST 144 H ALT 98 H Alkaline Phosphatase 330 H Troponin T C-Reactive Protein Total Protein 6.1 L Albumin 2.1 L LDL Cholesterol Direct HDL Cholesterol Urine Creatinine Hepatitis C Antibody Crossmatch Crossmatch Prewarmed 12/26/17 12/26/17 12/27/17 12:29 18:27 07:34 WBC RBC Hgb Hct MCV MCH MCHC RDW Plt Count Lymph % (Auto) [place] % (Auto) Eos % (Auto) Lymph # [place] # Eos # Seg Neutrophils % Seg Neuts % (Manual) Lymphocytes % (Manual) Monocytes % (Manual) Eosinophils % (Manual) Nucleated RBC % Seg Neutrophils # Seg Neutrophils # Man Lymphocytes # (Manual) Monocytes # (Manual) Eosinophils # (Manual) PT INR POC ABG pH POC ABG pCO2 POC ABG pO2 Sodium Potassium 3.1 L Chloride Carbon Dioxide BUN Creatinine 0.5 L Glucose POC Glucose 128 H 121 H Lactic Acid Calcium 7.7 L Phosphorus Magnesium AST 74 H ALT 80 H Alkaline Phosphatase 306 H Troponin T C-Reactive Protein Total Protein 6.1 L Albumin 2.1 L LDL Cholesterol Direct HDL Cholesterol Urine Creatinine Hepatitis C Antibody Crossmatch Crossmatch Prewarmed 12/27/17 12/28/17 12/28/17 07:34 04:59 04:59 WBC 11.1 H RBC 3.00 L Hgb 7.2 L Hct 23.6 L MCV 79 L MCH 24 L MCHC 31 L RDW 18.3 H Plt Count Lymph % (Auto) 10.0 L [place] % (Auto) 10.2 H Eos % (Auto) 6.7 H Lymph # 1.1 L [place] # 1.1 H Eos # 0.7 H Seg Neutrophils % 72.1 H Seg Neuts % (Manual) Lymphocytes % (Manual) Monocytes % (Manual) Eosinophils % (Manual) Nucleated RBC % Seg Neutrophils # 8.0 H Seg Neutrophils # Man Lymphocytes # (Manual) Monocytes # (Manual) Eosinophils # (Manual) PT INR POC ABG pH POC ABG pCO2 POC ABG pO2 Sodium Potassium Chloride Carbon Dioxide BUN Creatinine 0.4 L Glucose 102 H POC Glucose Lactic Acid Calcium 7.8 L Phosphorus Magnesium 1.30 L AST 58 H ALT 62 H Alkaline Phosphatase 274 H Troponin T C-Reactive Protein Total Protein 6.0 L Albumin 2.0 L LDL Cholesterol Direct HDL Cholesterol Urine Creatinine Hepatitis C Antibody Crossmatch Crossmatch Prewarmed 12/28/17 12/29/17 12/29/17 18:06 04:02 04:02 WBC RBC Hgb Hct MCV MCH MCHC RDW Plt Count Lymph % (Auto) [place] % (Auto) Eos % (Auto) Lymph # [place] # Eos # Seg Neutrophils % Seg Neuts % (Manual) Lymphocytes % (Manual) Monocytes % (Manual) Eosinophils % (Manual) Nucleated RBC % Seg Neutrophils # Seg Neutrophils # Man Lymphocytes # (Manual) Monocytes # (Manual) Eosinophils # (Manual) PT INR POC ABG pH POC ABG pCO2 POC ABG pO2 Sodium Potassium Chloride Carbon Dioxide BUN Creatinine 0.5 L Glucose POC Glucose 107 H Lactic Acid Calcium 7.8 L Phosphorus Magnesium 1.40 L AST 50 H ALT Alkaline Phosphatase 311 H Troponin T C-Reactive Protein Total Protein 5.9 L Albumin 2.3 L LDL Cholesterol Direct HDL Cholesterol Urine Creatinine Hepatitis C Antibody Crossmatch Crossmatch Prewarmed 12/29/17 12/29/17 12/30/17 12:10 17:33 04:46 WBC RBC Hgb Hct MCV MCH MCHC RDW Plt Count Lymph % (Auto) [place] % (Auto) Eos % (Auto) Lymph # [place] # Eos # Seg Neutrophils % Seg Neuts % (Manual) Lymphocytes % (Manual) Monocytes % (Manual) Eosinophils % (Manual) Nucleated RBC % Seg Neutrophils # Seg Neutrophils # Man Lymphocytes # (Manual) Monocytes # (Manual) Eosinophils # (Manual) PT INR POC ABG pH POC ABG pCO2 POC ABG pO2 Sodium Potassium Chloride Carbon Dioxide BUN Creatinine 0.5 L Glucose POC Glucose 124 H 108 H Lactic Acid Calcium 8.2 L Phosphorus Magnesium AST ALT Alkaline Phosphatase 288 H Troponin T C-Reactive Protein Total Protein Albumin 2.4 L LDL Cholesterol Direct HDL Cholesterol Urine Creatinine Hepatitis C Antibody Crossmatch Crossmatch Prewarmed 12/30/17 12/31/17 12/31/17 04:46 04:03 04:03 WBC RBC Hgb Hct MCV MCH MCHC RDW Plt Count Lymph % (Auto) [place] % (Auto) Eos % (Auto) Lymph # [place] # Eos # Seg Neutrophils % Seg Neuts % (Manual) Lymphocytes % (Manual) Monocytes % (Manual) Eosinophils % (Manual) Nucleated RBC % Seg Neutrophils # Seg Neutrophils # Man Lymphocytes # (Manual) Monocytes # (Manual) Eosinophils # (Manual) PT INR POC ABG pH POC ABG pCO2 POC ABG pO2 Sodium Potassium Chloride Carbon Dioxide BUN Creatinine 0.4 L Glucose 103 H POC Glucose Lactic Acid Calcium 8.1 L Phosphorus Magnesium 1.50 L 1.30 L AST ALT Alkaline Phosphatase Troponin T C-Reactive Protein Total Protein Albumin LDL Cholesterol Direct HDL Cholesterol Urine Creatinine Hepatitis C Antibody Crossmatch Crossmatch Prewarmed
--- NOTE | 2017-12-31 14:11 | Progress Note ---
Assessment and Plan Assessment and plan: --Acute hypoxic respiratory failure; requiring mechanical ventilation more than 96% Status post tracheostomy, continue trach care, nebulizers, oxygen --Peritonitis: from dislodged peg tube Patient received complete course of antibiotics Multiple surgical procedures with intra-abdominal drainage placement IR and surgery evaluated the patient Continue current management, awaiting for wound healing Possible new peg placement when medically stable Continue to monitor output of the drains, will DC the drains when output clears --Aspiration pneumonia; received complete treatment, resolved --Acute kidney injury; secondary to ATN Requiring intermittent dialysis as needed --Chronic anemia; received total 3 units of PRBC, closely monitor H&H transfuse as needed --Hypernatremia/hypokalemia/hypomagnesemia; Closely monitor electrolytes and adjust as needed --History of carotid endarterectomy; supportive care --Metabolic encephalopathy; supportive care --DVT prophylaxis; SCDs --Full CODE STATUS Patient is critically ill, recommend hospice Consults and recommendations noted DC planning per case management LTAC declined admission History Interval history: Patient seen and examined medical records reviewed Patient is noncommunicative, cachectic No new events reported by the nursing Vital signs noted Hospitalist Physical - Constitutional Vitals: Temp Pulse Resp BP Pulse Ox 97.2 F L 103 H 18 164/98 97 12/31/17 12:00 12/31/17 12:00 12/31/17 12:00 12/31/17 11:00 12/31/17 12:00 General appearance: Present: no acute distress, cachectic, disheveled - EENT Eyes: Present: PERRL, EOM intact - Neck Neck: Present: supple, normal ROM - Respiratory Respiratory effort: normal Respiratory: bilateral: diminished, rales, negative: rhonchi, wheezing - Cardiovascular Rhythm: regular Heart Sounds: Present: S1 & S2 - Extremities Extremities: no ischemia Extremity abnormal: edema - Abdominal General gastrointestinal: soft, non-tender, non-distended, other (drainage tube intact) - Integumentary Integumentary: Present: clear, warm - Psychiatric Psychiatric: other (unresponsive and noncommunicative) - Neurologic Neurologic: other (noncommunicative) Results - Labs CBC & Chem 7: 01/02/18 03:45 01/02/18 03:45 Labs: Laboratory Last Values WBC 11.1 K/mm3 (4.5-11.0) H 12/28/17 04:59 RBC 3.00 M/mm3 (3.65-5.03) L 12/28/17 04:59 Hgb 7.2 gm/dl (11.8-15.2) L 12/28/17 04:59 Hct 23.6 % (35.5-45.6) L 12/28/17 04:59 MCV 79 fl (84-94) L 12/28/17 04:59 MCH 24 pg (28-32) L 12/28/17 04:59 MCHC 31 % (32-34) L 12/28/17 04:59 RDW 18.3 % (13.2-15.2) H 12/28/17 04:59 Plt Count 201 K/mm3 (140-440) 12/28/17 04:59 Lymph % (Auto) 10.0 % (13.4-35.0) L 12/28/17 04:59 [place] % (Auto) 10.2 % (0.0-7.3) H 12/28/17 04:59 Eos % (Auto) 6.7 % (0.0-4.3) H 12/28/17 04:59 Baso % (Auto) 1.0 % (0.0-1.8) 12/28/17 04:59 Lymph # 1.1 K/mm3 (1.2-5.4) L 12/28/17 04:59 [place] # 1.1 K/mm3 (0.0-0.8) H 12/28/17 04:59 Eos # 0.7 K/mm3 (0.0-0.4) H 12/28/17 04:59 Baso # 0.1 K/mm3 (0.0-0.1) 12/28/17 04:59 Add Manual Diff Complete 12/20/17 19:00 Total Counted 100 12/20/17 19:00 Seg Neutrophils % 72.1 % (40.0-70.0) H 12/28/17 04:59 Seg Neuts % (Manual) 74.0 % (40.0-70.0) H 12/20/17 19:00 Band Neutrophils % 2.0 % 12/20/17 19:00 Lymphocytes % (Manual) 6.0 % (13.4-35.0) L 12/20/17 19:00 Reactive Lymphs % (Man) 0 % 12/20/17 19:00 Monocytes % (Manual) 17.0 % (0.0-7.3) H 12/20/17 19:00 Eosinophils % (Manual) 1.0 % (0.0-4.3) 12/20/17 19:00 Basophils % (Manual) 0 % (0.0-1.8) 12/20/17 19:00 Metamyelocytes % 0 % 12/20/17 19:00 Myelocytes % 0 % 12/20/17 19:00 Promyelocytes % 0 % 12/20/17 19:00 Blast Cells % 0 % 12/20/17 19:00 Nucleated RBC % Not Reportable 12/20/17 19:00 Seg Neutrophils # 8.0 K/mm3 (1.8-7.7) H 12/28/17 04:59 Seg Neutrophils # Man 6.4 K/mm3 (1.8-7.7) 12/20/17 19:00 Band Neutrophils # 0.2 K/mm3 12/20/17 19:00 Lymphocytes # (Manual) 0.5 K/mm3 (1.2-5.4) L 12/20/17 19:00 Abs React Lymphs (Man) 0.0 K/mm3 12/20/17 19:00 Monocytes # (Manual) 1.5 K/mm3 (0.0-0.8) H 12/20/17 19:00 Eosinophils # (Manual) 0.1 K/mm3 (0.0-0.4) 12/20/17 19:00 Basophils # (Manual) 0.0 K/mm3 (0.0-0.1) 12/20/17 19:00 Metamyelocytes # 0.0 K/mm3 12/20/17 19:00 Myelocytes # 0.0 K/mm3 12/20/17 19:00 Promyelocytes # 0.0 K/mm3 12/20/17 19:00 Blast Cells # 0.0 K/mm3 12/20/17 19:00 WBC Morphology Not Reportable 12/20/17 19:00 Hypersegmented Neuts Not Reportable 12/20/17 19:00 Hyposegmented Neuts Not Reportable 12/20/17 19:00 Hypogranular Neuts Not Reportable 12/20/17 19:00 Smudge Cells Not Reportable 12/20/17 19:00 Toxic Granulation Not Reportable 12/20/17 19:00 Toxic Vacuolation Not Reportable 12/20/17 19:00 Dohle Bodies Not Reportable 12/20/17 19:00 Pelger-Huet Anomaly Not Reportable 12/20/17 19:00 Evangelina Rods Not Reportable 12/20/17 19:00 Platelet Estimate Appears normal 12/20/17 19:00 Clumped Platelets Not Reportable 12/20/17 19:00 Plt Clumps, EDTA Not Reportable 12/20/17 19:00 Large Platelets Not Reportable 12/20/17 19:00 Giant Platelets Not Reportable 12/20/17 19:00 Platelet Satelliting Not Reportable 12/20/17 19:00 Plt Morphology Comment Not Reportable 12/20/17 19:00 RBC Morphology Not Reportable 12/20/17 19:00 Dimorphic RBCs Not Reportable 12/20/17 19:00 Polychromasia Not Reportable 12/20/17 19:00 Hypochromasia 2+ 12/20/17 19:00 Poikilocytosis Few 12/20/17 19:00 Anisocytosis 1+ 12/20/17 19:00 Microcytosis 1+ 12/20/17 19:00 Macrocytosis Not Reportable 12/20/17 19:00 Spherocytes Not Reportable 12/20/17 19:00 Pappenheimer Bodies Not Reportable 12/20/17 19:00 Sickle Cells Not Reportable 12/20/17 19:00 Target Cells Not Reportable 12/20/17 19:00 Tear Drop Cells Not Reportable 12/20/17 19:00 Ovalocytes Few 12/20/17 19:00 Stomatocytes 1+ 12/12/17 05:41 Helmet Cells Not Reportable 12/20/17 19:00 Dukes-[place] Bodies Not Reportable 12/20/17 19:00 [place] Rings Not Reportable 12/20/17 19:00 Lucretia Cells Not Reportable 12/20/17 19:00 Bite Cells Not Reportable 12/20/17 19:00 Crenated Cell Not Reportable 12/20/17 19:00 Elliptocytes Not Reportable 12/20/17 19:00 Acanthocytes (Spur) Not Reportable 12/20/17 19:00 Rouleaux Not Reportable 12/20/17 19:00 Hemoglobin C Crystals Not Reportable 12/20/17 19:00 Schistocytes Not Reportable 12/20/17 19:00 Malaria parasites Not Reportable 12/20/17 19:00 [place] Bodies Not Reportable 12/20/17 19:00 Hem Pathologist Commnt No 12/20/17 19:00 PT 15.4 Sec. (12.2-14.9) H 12/14/17 05:11 INR 1.17 (0.87-1.13) H 12/14/17 05:11 APTT 33.8 Sec. (24.2-36.6) 11/26/17 06:29 POC ABG pH 7.505 (7.35-7.45) H 11/23/17 04:56 POC ABG pCO2 26.3 (35-45) L 11/23/17 04:56 POC ABG pO2 100 (80-105) 11/23/17 04:56 POC ABG HCO3 20.8 11/23/17 04:56 POC ABG Total CO2 22 11/23/17 04:56 POC ABG O2 Sat 98 11/23/17 04:56 POC ABG Base Excess -2 11/23/17 04:56 FiO2 30 % 11/23/17 04:56 Sodium 140 mmol/L (137-145) 12/31/17 04:03 Potassium 3.6 mmol/L (3.6-5.0) 12/31/17 04:03 Chloride 102.0 mmol/L (98-107) 12/31/17 04:03 Carbon Dioxide 24 mmol/L (22-30) 12/31/17 04:03 Anion Gap 18 mmol/L 12/31/17 04:03 BUN 13 mg/dL (9-20) 12/31/17 04:03 Creatinine 0.4 mg/dL (0.8-1.5) L 12/31/17 04:03 Estimated GFR > 60 ml/min 12/31/17 04:03 BUN/Creatinine Ratio 33 % 12/31/17 04:03 Glucose 103 mg/dL (75-100) H 12/31/17 04:03 POC Glucose 93 (70-105) 12/31/17 11:46 Lactic Acid 1.80 mmol/L (0.7-2.0) 11/27/17 04:06 Calcium 8.1 mg/dL (8.4-10.2) L 12/31/17 04:03 Phosphorus 1.60 mg/dL (2.5-4.5) L 12/20/17 19:00 Magnesium 1.30 mg/dL (1.7-2.3) L 12/31/17 04:03 Total Bilirubin 0.30 mg/dL (0.1-1.2) 12/30/17 04:46 AST 37 units/L (5-40) 12/30/17 04:46 ALT 48 units/L (7-56) 12/30/17 04:46 Alkaline Phosphatase 288 units/L (35-129) H 12/30/17 04:46 Total Creatine Kinase 84 units/L (55-170) 11/12/17 20:03 CK-MB (CK-2) < 1.0 ng/mL (0.0-4.0) 11/12/17 20:03 CK-MB (CK-2) Rel Index 1.1 (0-4) 11/12/17 20:03 Troponin T 0.098 ng/mL (0.00-0.029) H 11/12/17 Unknown C-Reactive Protein 25.70 mg/dL (0.00-1.30) H 11/11/17 23:20 NT-Pro-B Natriuret Pep 792.4 pg/mL (0-900) 11/11/17 23:20 Total Protein 6.6 g/dL (6.3-8.2) 12/30/17 04:46 Albumin 2.4 g/dL (3.9-5) L 12/30/17 04:46 Albumin/Globulin Ratio 0.6 % 12/30/17 04:46 Triglycerides 86 mg/dL (2-149) 11/11/17 23:20 Cholesterol 82 mg/dL (50-199) 11/11/17 23:20 LDL Cholesterol Direct 42 mg/dL (50-130) L 11/11/17 23:20 HDL Cholesterol 24 mg/dL (40-59) L 11/11/17 23:20 Cholesterol/HDL Ratio 3.41 % 11/11/17 23:20 Lipase 30 units/L (13-60) 11/11/17 23:20 Urine Color Nicole (Yellow) 11/11/17 23:09 Urine Turbidity Cloudy (Clear) 11/11/17 23:09 Urine pH 5.0 (5.0-7.0) 11/11/17 23:09 Ur Specific [place] 1.025 (1.003-1.030) 11/11/17 23:09 Urine Protein 100 mg/dl mg/dL (Negative) 11/11/17 23:09 Urine Glucose (UA) 50 mg/dL (Negative) 11/11/17 23:09 Urine Ketones Neg mg/dL (Negative) 11/11/17 23:09 Urine Blood Neg (Negative) 11/11/17 23:09 Urine Nitrite Neg (Negative) 11/11/17 23:09 Urine Bilirubin Neg (Negative) 11/11/17 23:09 Urine Urobilinogen 4.0 mg/dL (<2.0) 11/11/17 23:09 Ur Leukocyte Esterase Neg (Negative) 11/11/17 23:09 Urine WBC (Auto) 5.0 /HPF (0.0-6.0) 11/11/17 23:09 Urine RBC (Auto) 4.0 /HPF (0.0-6.0) 11/11/17 23:09 Urine Bacteria (Auto) 3+ /HPF (Negative) 11/11/17 23:09 Amorphous Crystals 3+ 11/11/17 23:09 Hyaline Casts 76 /LPF 11/11/17 23:09 Urine Mucus 2+ /HPF 11/11/17 23:09 Urine Total Volume 1350 12/22/17 10:50 Urine Creatinine 55.8 mg/dL (0.1-20.0) H 12/22/17 10:50 Ur Creatinine 24 Hour 0.8 (0.8-2.8) 12/22/17 10:50 Hepatitis A IgM Ab Non-reactive (NonReactive) 11/22/17 19:45 Hep Bs Antigen Non-reactive (Negative) 11/22/17 19:45 Hep B Core IgM Ab Non-reactive (NonReactive) 11/22/17 19:45 Hepatitis C Antibody Reactive (NonReactive) A 11/22/17 19:45 Blood Type A POSITIVE 12/16/17 13:01 Antibody Screen Positive 12/16/17 13:01 SANTANA Antibody Screen Cancelled 12/16/17 13:01 Antibody Identification Cold Antibody 12/16/17 13:01 Crossmatch See Detail 12/16/17 13:01 Crossmatch Prewarmed See Detail 12/16/17 13:01
[2017-12-31] MEDS ORDERED: MAGNESIUM SULFATE 4GM/100ML 4 GM/100 ML BAG IV ONE (14:47)
[2018-01-01 04:58] LABS: Hematocrit 24.1 % (35.5-45.6); Hemoglobin 7.6 gm/dl (11.8-15.2); Mean Corpuscular HGB Conc 31 % (32-34); Mean Corpuscular Volume 78 fl (84-94); Platelet Count 225 K/mm3 (140-440); Red Blood Count 3.07 M/mm3 (3.65-5.03); Red Cell Distribution Width 18.2 % (13.2-15.2)
[2018-01-01 05:25] LABS: Mean Corpuscular Hemoglobin 25 pg (28-32)
[2018-01-01 05:29] LABS: BUN/Creatinine Ratio 33; Blood Urea Nitrogen 10 mg/dL (9-20); Calcium 7.9 mg/dL (8.4-10.2); Hemolysis Index 7
[2018-01-01] MEDS: POTASSIUM CHLORIDE FEEDTUBE SCH ×2 (10:10→21:37)
[2018-01-01] MEDS: PREVACID SOLUTAB FEEDTUBE SCH ×2 (10:10→21:38)
[2018-01-01] MEDS: LOPRESSOR PO SCH ×2 (10:10→21:38)
[2018-01-01] MEDS: MAG-OX PO SCH ×2 (10:10→21:38)
[2018-01-01 10:30] LABS: Total Cells Counted 100
[2018-01-01 10:31] LABS: Anisocytosis 1+; Platelet Estimate Consistent w Auto; Stomatocytes Few
--- NOTE | 2018-01-01 13:36 | Progress Note ---
Assessment and Plan Assessment * Acute kidney injury secondary to ATN - resolved --Intermittent HD started on 11/23/17 * Sepsis secondary to peritonitis/PEG malpositioning --RUQ/LUQ drains: Enterobacter, Heather (non albicans) * Aspiration pneumonitis related to above * Anemia * Acute CVA * Carotid artery disease s/p CEA * Encephalopathy Plan: * Remains stable off dialysis. * Strict I/O * Avoid potential nephrptoxins * Dose medications for renal function * Replete lytes prn * Avoid nephrotoxins * Will follow peripherally Subjective Date of service: 01/01/18 Principal diagnosis: Acute hypoxic respiratory failure, s/p Trach Interval history: No acute events overnight Objective - Vital Signs Vital signs: Vital Signs - 12hr 01/01/18 01/01/18 01/01/18 02:00 03:00 04:00 Temperature 99.5 F Pulse Rate 99 H 106 H 104 H Pulse Rate [ 104 H Right From Monitor] Respiratory 33 H 32 H 20 Rate Blood Pressure 146/85 150/82 150/86 O2 Sat by Pulse 97 95 93 Oximetry O2 Sat by Pulse Oximetry [ Assessment] 01/01/18 01/01/18 01/01/18 05:00 06:00 07:00 Temperature Pulse Rate 107 H 104 H 104 H Pulse Rate [ Right From Monitor] Respiratory 31 H 34 H 32 H Rate Blood Pressure 156/88 149/82 142/83 O2 Sat by Pulse 95 96 93 Oximetry O2 Sat by Pulse Oximetry [ Assessment] 01/01/18 01/01/18 01/01/18 08:00 09:00 10:00 Temperature Pulse Rate 105 H 110 H 105 H Pulse Rate [ Right From Monitor] Respiratory 23 33 H 31 H Rate Blood Pressure 147/77 155/83 142/76 O2 Sat by Pulse 96 100 94 Oximetry O2 Sat by Pulse Oximetry [ Assessment] 01/01/18 01/01/18 01/01/18 10:10 11:00 12:00 Temperature Pulse Rate 106 H 113 H 108 H Pulse Rate [ Right From Monitor] Respiratory 22 32 H Rate Blood Pressure 147/76 142/76 178/109 O2 Sat by Pulse 100 97 Oximetry O2 Sat by Pulse Oximetry [ Assessment] 01/01/18 12:48 Temperature Pulse Rate Pulse Rate [ Right From Monitor] Respiratory Rate Blood Pressure O2 Sat by Pulse 99 Oximetry O2 Sat by Pulse 99 Oximetry [ Assessment] - General Appearance General appearance: chronically ill, frail EENT: ATNC Neck: other (trach) Respiratory: Present: Decreased Breath Sounds Cardiology: regular, S1S2 Gastrointestinal: hypoactive bowel sounds Neurologic: other (nonresponsive) Musculoskeletal: other (1+ pedal edema) - Lab 01/01/18 04:26 01/01/18 04:26 Most recent lab results Calcium 7.9 mg/dL (8.4-10.2) L 01/01/18 04:26 Phosphorus 3.00 mg/dL (2.5-4.5) 01/01/18 04:26 Magnesium 1.90 mg/dL (1.7-2.3) 01/01/18 04:26 Urine Creatinine 55.8 mg/dL (0.1-20.0) H 12/22/17 10:50
--- NOTE | 2018-01-01 13:37 | Progress Note ---
Assessment and Plan 67 y/o male with acute on chronic respiratory failure, now trached, with peritonitis from dislodged peg tube s/p 2 IR drains now with NGT feedings. No new recs for today. Please see below. 1. Trach Care. Trach is permanent as patient cannot clear his secretions himself 2. Off IV abx therapy now 3. Electrolytes per primary and renal, now off HD 4. Will continue to follow along with you. Subjective Date of service: 01/01/18 Principal diagnosis: Acute hypoxic respiratory failure, s/p Trach Interval history: No acute events. Objective Vital Signs - 12hr 01/01/18 01/01/18 01/01/18 02:00 03:00 04:00 Temperature 99.5 F Pulse Rate 99 H 106 H 104 H Pulse Rate [ 104 H Right From Monitor] Respiratory 33 H 32 H 20 Rate Blood Pressure 146/85 150/82 150/86 O2 Sat by Pulse 97 95 93 Oximetry O2 Sat by Pulse Oximetry [ Assessment] 01/01/18 01/01/18 01/01/18 05:00 06:00 07:00 Temperature Pulse Rate 107 H 104 H 104 H Pulse Rate [ Right From Monitor] Respiratory 31 H 34 H 32 H Rate Blood Pressure 156/88 149/82 142/83 O2 Sat by Pulse 95 96 93 Oximetry O2 Sat by Pulse Oximetry [ Assessment] 01/01/18 01/01/18 01/01/18 08:00 09:00 10:00 Temperature Pulse Rate 105 H 110 H 105 H Pulse Rate [ Right From Monitor] Respiratory 23 33 H 31 H Rate Blood Pressure 147/77 155/83 142/76 O2 Sat by Pulse 96 100 94 Oximetry O2 Sat by Pulse Oximetry [ Assessment] 01/01/18 01/01/18 01/01/18 10:10 11:00 12:00 Temperature Pulse Rate 106 H 113 H 108 H Pulse Rate [ Right From Monitor] Respiratory 22 32 H Rate Blood Pressure 147/76 142/76 178/109 O2 Sat by Pulse 100 97 Oximetry O2 Sat by Pulse Oximetry [ Assessment] 01/01/18 12:48 Temperature Pulse Rate Pulse Rate [ Right From Monitor] Respiratory Rate Blood Pressure O2 Sat by Pulse 99 Oximetry O2 Sat by Pulse 99 Oximetry [ Assessment] Constitutional: no acute distress, alert Eyes: non-icteric ENT: oropharynx moist Neck: supple (trach in position) Effort: normal Ascultation: Bilateral: clear, rales (few bilaterally), rhonchi (mild bilateral) , other (coarse BS bilaterally) Cardiovascular: regular rate and rhythm Gastrointestinal: normoactive bowel sounds, soft, non-tender, other (drains in place) Integumentary: normal Extremities: no cyanosis, pink and warm, edema (2+ bilateral LE edema) Neurologic: other (L hemiparesis,awake, response to my voice) Psychiatric: other (unable to assess) CBC and BMP: 01/01/18 04:26 01/01/18 04:26 ABG, PT/INR, D-dimer: ABG POC ABG pH 7.505 (7.35-7.45) H 11/23/17 04:56 POC ABG pCO2 26.3 (35-45) L 11/23/17 04:56 POC ABG pO2 100 (80-105) 11/23/17 04:56 POC ABG HCO3 20.8 11/23/17 04:56 POC ABG Total CO2 22 11/23/17 04:56 POC ABG O2 Sat 98 11/23/17 04:56 PT/INR, D-dimer PT 15.4 Sec. (12.2-14.9) H 12/14/17 05:11 INR 1.17 (0.87-1.13) H 12/14/17 05:11 Abnormal lab findings: Abnormal Labs 11/11/17 11/11/17 11/11/17 23:18 23:20 23:20 WBC RBC Hgb 10.4 L Hct 32.6 L D MCV MCH 27 L MCHC RDW 17.4 H Plt Count 105 L Lymph % (Auto) [place] % (Auto) Eos % (Auto) Lymph # [place] # Eos # Seg Neutrophils % Seg Neuts % (Manual) Lymphocytes % (Manual) 8.0 L Monocytes % (Manual) Eosinophils % (Manual) Nucleated RBC % 1.0 H Seg Neutrophils # Seg Neutrophils # Man Lymphocytes # (Manual) 0.7 L Monocytes # (Manual) Eosinophils # (Manual) PT INR POC ABG pH 7.550 H POC ABG pCO2 31.6 L POC ABG pO2 Sodium 146 H Potassium Chloride Carbon Dioxide BUN 26 H Creatinine 1.7 H D Glucose 133 H POC Glucose Lactic Acid Calcium Phosphorus Magnesium AST ALT Alkaline Phosphatase Troponin T 0.117 H* C-Reactive Protein Total Protein Albumin 2.5 L LDL Cholesterol Direct 42 L HDL Cholesterol 24 L Urine Creatinine Hepatitis C Antibody Crossmatch Crossmatch P[place]armed 11/11/17 11/12/17 11/12/17 23:20 00:23 00:23 WBC RBC Hgb Hct MCV MCH MCHC RDW Plt Count Lymph % (Auto) [place] % (Auto) Eos % (Auto) Lymph # [place] # Eos # Seg Neutrophils % Seg Neuts % (Manual) Lymphocytes % (Manual) Monocytes % (Manual) Eosinophils % (Manual) Nucleated RBC % Seg Neutrophils # Seg Neutrophils # Man Lymphocytes # (Manual) Monocytes # (Manual) Eosinophils # (Manual) PT 16.7 H INR 1.28 H POC ABG pH POC ABG pCO2 POC ABG pO2 Sodium Potassium Chloride Carbon Dioxide BUN Creatinine Glucose POC Glucose Lactic Acid 3.20 H* Calcium Phosphorus Magnesium AST ALT Alkaline Phosphatase Troponin T C-Reactive Protein 25.70 H Total Protein Albumin LDL Cholesterol Direct HDL Cholesterol Urine Creatinine Hepatitis C Antibody Crossmatch Crossmatch P[place]armed 11/12/17 11/12/17 11/12/17 00:46 01:27 01:27 WBC RBC Hgb Hct MCV MCH MCHC RDW Plt Count Lymph % (Auto) [place] % (Auto) Eos % (Auto) Lymph # [place] # Eos # Seg Neutrophils % Seg Neuts % (Manual) Lymphocytes % (Manual) Monocytes % (Manual) Eosinophils % (Manual) Nucleated RBC % Seg Neutrophils # Seg Neutrophils # Man Lymphocytes # (Manual) Monocytes # (Manual) Eosinophils # (Manual) PT INR POC ABG pH 7.495 H POC ABG pCO2 32.0 L POC ABG pO2 64 L Sodium Potassium Chloride Carbon Dioxide BUN Creatinine Glucose POC Glucose Lactic Acid 3.70 H* Calcium Phosphorus Magnesium AST ALT Alkaline Phosphatase Troponin T 0.096 H C-Reactive Protein Total Protein Albumin LDL Cholesterol Direct HDL Cholesterol Urine Creatinine Hepatitis C Antibody Crossmatch Crossmatch P[place]armed 11/12/17 11/12/17 11/12/17 03:21 04:50 06:27 WBC RBC Hgb Hct MCV MCH MCHC RDW Plt Count Lymph % (Auto) [place] % (Auto) Eos % (Auto) Lymph # [place] # Eos # Seg Neutrophils % Seg Neuts % (Manual) Lymphocytes % (Manual) Monocytes % (Manual) Eosinophils % (Manual) Nucleated RBC % Seg Neutrophils # Seg Neutrophils # Man Lymphocytes # (Manual) Monocytes # (Manual) Eosinophils # (Manual) PT INR POC ABG pH POC ABG pCO2 POC ABG pO2 109 H Sodium Potassium Chloride Carbon Dioxide BUN Creatinine Glucose POC Glucose Lactic Acid 3.80 H* 2.20 H* Calcium Phosphorus Magnesium AST ALT Alkaline Phosphatase Troponin T C-Reactive Protein Total Protein Albumin LDL Cholesterol Direct HDL Cholesterol Urine Creatinine Hepatitis C Antibody Crossmatch Crossmatch P[place]armed 11/12/17 11/12/17 11/12/17 09:24 09:24 09:24 WBC RBC Hgb 10.4 L Hct 33.4 L MCV MCH MCHC RDW Plt Count Lymph % (Auto) [place] % (Auto) Eos % (Auto) Lymph # [place] # Eos # Seg Neutrophils % Seg Neuts % (Manual) Lymphocytes % (Manual) Monocytes % (Manual) Eosinophils % (Manual) Nucleated RBC % Seg Neutrophils # Seg Neutrophils # Man Lymphocytes # (Manual) Monocytes # (Manual) Eosinophils # (Manual) PT INR POC ABG pH POC ABG pCO2 POC ABG pO2 Sodium Potassium Chloride Carbon Dioxide BUN Creatinine Glucose POC Glucose Lactic Acid 2.90 H* Calcium Phosphorus Magnesium AST ALT Alkaline Phosphatase Troponin T 0.091 H C-Reactive Protein Total Protein Albumin LDL Cholesterol Direct HDL Cholesterol Urine Creatinine Hepatitis C Antibody Crossmatch Crossmatch P[place]armed 11/12/17 11/12/17 11/12/17 12:56 20:03 Unknown WBC RBC Hgb Hct MCV MCH MCHC RDW Plt Count Lymph % (Auto) [place] % (Auto) Eos % (Auto) Lymph # [place] # Eos # Seg Neutrophils % Seg Neuts % (Manual) Lymphocytes % (Manual) Monocytes % (Manual) Eosinophils % (Manual) Nucleated RBC % Seg Neutrophils # Seg Neutrophils # Man Lymphocytes # (Manual) Monocytes # (Manual) Eosinophils # (Manual) PT INR POC ABG pH POC ABG pCO2 POC ABG pO2 Sodium Potassium Chloride Carbon Dioxide BUN Creatinine Glucose POC Glucose Lactic Acid 3.60 H* Calcium Phosphorus Magnesium AST ALT Alkaline Phosphatase Troponin T 0.102 H* 0.156 H* D C-Reactive Protein Total Protein Albumin LDL Cholesterol Direct HDL Cholesterol Urine Creatinine Hepatitis C Antibody Crossmatch Crossmatch P[place]armed 11/12/17 11/13/17 11/13/17 Unknown 04:50 04:50 WBC 12.2 H RBC 3.51 L Hgb 9.3 L Hct 30.1 L MCV MCH 26 L MCHC 31 L RDW 18.0 H Plt Count 128 L Lymph % (Auto) 8.6 L [place] % (Auto) 11.1 H Eos % (Auto) Lymph # 1.1 L [place] # 1.4 H Eos # Seg Neutrophils % 80.1 H Seg Neuts % (Manual) Lymphocytes % (Manual) Monocytes % (Manual) Eosinophils % (Manual) Nucleated RBC % Seg Neutrophils # 9.8 H Seg Neutrophils # Man Lymphocytes # (Manual) Monocytes # (Manual) Eosinophils # (Manual) PT INR POC ABG pH POC ABG pCO2 POC ABG pO2 Sodium 149 H Potassium 5.1 H Chloride 114.4 H Carbon Dioxide 18 L BUN 52 H Creatinine 3.3 H D Glucose 129 H POC Glucose Lactic Acid Calcium 7.9 L Phosphorus Magnesium AST ALT Alkaline Phosphatase Troponin T 0.098 H C-Reactive Protein Total Protein Albumin LDL Cholesterol Direct HDL Cholesterol Urine Creatinine Hepatitis C Antibody Crossmatch Crossmatch P[place]armed 11/13/17 11/13/17 11/14/17 04:51 09:34 04:21 WBC RBC Hgb Hct MCV MCH MCHC RDW Plt Count Lymph % (Auto) [place] % (Auto) Eos % (Auto) Lymph # [place] # Eos # Seg Neutrophils % Seg Neuts % (Manual) Lymphocytes % (Manual) Monocytes % (Manual) Eosinophils % (Manual) Nucleated RBC % Seg Neutrophils # Seg Neutrophils # Man Lymphocytes # (Manual) Monocytes # (Manual) Eosinophils # (Manual) PT INR POC ABG pH POC ABG pCO2 30.1 L 29.8 L POC ABG pO2 135 H Sodium Potassium Chloride Carbon Dioxide BUN Creatinine Glucose POC Glucose Lactic Acid 2.10 H* Calcium Phosphorus Magnesium AST ALT Alkaline Phosphatase Troponin T C-Reactive Protein Total Protein Albumin LDL Cholesterol Direct HDL Cholesterol Urine Creatinine Hepatitis C Antibody Crossmatch Crossmatch P[place]armed 11/15/17 11/15/17 11/16/17 04:52 15:50 05:17 WBC RBC Hgb Hct MCV MCH MCHC RDW Plt Count Lymph % (Auto) [place] % (Auto) Eos % (Auto) Lymph # [place] # Eos # Seg Neutrophils % Seg Neuts % (Manual) Lymphocytes % (Manual) Monocytes % (Manual) Eosinophils % (Manual) Nucleated RBC % Seg Neutrophils # Seg Neutrophils # Man Lymphocytes # (Manual) Monocytes # (Manual) Eosinophils # (Manual) PT INR POC ABG pH POC ABG pCO2 29.5 L 31.5 L POC ABG pO2 115 H 122 H Sodium 154 H Potassium Chloride 117.9 H Carbon Dioxide 19 L BUN 87 H Creatinine 4.1 H Glucose POC Glucose Lactic Acid Calcium 8.1 L Phosphorus Magnesium AST ALT Alkaline Phosphatase Troponin T C-Reactive Protein Total Protein Albumin LDL Cholesterol Direct HDL Cholesterol Urine Creatinine Hepatitis C Antibody Crossmatch Crossmatch P[place]armed 11/16/17 11/17/17 11/17/17 16:37 04:07 10:00 WBC 14.7 H RBC 3.23 L Hgb 8.3 L Hct 28.1 L MCV MCH 26 L MCHC 30 L RDW 18.8 H Plt Count Lymph % (Auto) [place] % (Auto) Eos % (Auto) Lymph # [place] # Eos # Seg Neutrophils % Seg Neuts % (Manual) 75 H Lymphocytes % (Manual) 8.0 L Monocytes % (Manual) Eosinophils % (Manual) Nucleated RBC % 1.0 H Seg Neutrophils # Seg Neutrophils # Man 11.0 H Lymphocytes # (Manual) Monocytes # (Manual) 0.9 H Eosinophils # (Manual) PT INR POC ABG pH POC ABG pCO2 POC ABG pO2 Sodium 153 H 155 H Potassium Chloride 117.3 H 119.4 H Carbon Dioxide 19 L 20 L BUN 90 H 89 H Creatinine 3.9 H 3.6 H Glucose 111 H 115 H POC Glucose Lactic Acid Calcium 8.1 L 8.0 L Phosphorus Magnesium AST ALT Alkaline Phosphatase Troponin T C-Reactive Protein Total Protein Albumin LDL Cholesterol Direct HDL Cholesterol Urine Creatinine Hepatitis C Antibody Crossmatch Crossmatch P[place]armed 11/18/17 11/18/17 11/18/17 04:34 04:34 04:34 WBC 15.5 H RBC 3.13 L Hgb 8.1 L Hct 26.3 L MCV MCH 26 L MCHC 31 L RDW 18.6 H Plt Count Lymph % (Auto) [place] % (Auto) Eos % (Auto) Lymph # [place] # Eos # Seg Neutrophils % Seg Neuts % (Manual) 81.0 H Lymphocytes % (Manual) 7.0 L Monocytes % (Manual) Eosinophils % (Manual) Nucleated RBC % 1.0 H Seg Neutrophils # Seg Neutrophils # Man 12.6 H Lymphocytes # (Manual) 1.1 L Monocytes # (Manual) Eosinophils # (Manual) PT 16.7 H INR 1.30 H POC ABG pH POC ABG pCO2 POC ABG pO2 Sodium 155 H Potassium 3.2 L Chloride 121.0 H Carbon Dioxide 20 L BUN 74 H Creatinine 2.9 H Glucose 126 H POC Glucose Lactic Acid Calcium 7.9 L Phosphorus Magnesium AST ALT Alkaline Phosphatase Troponin T C-Reactive Protein Total Protein Albumin LDL Cholesterol Direct HDL Cholesterol Urine Creatinine Hepatitis C Antibody Crossmatch Crossmatch P[place]armed 11/19/17 11/19/17 11/20/17 04:44 04:44 00:38 WBC 19.0 H 22.2 H RBC 3.20 L 3.17 L Hgb 8.4 L 7.9 L Hct 27.9 L 26.4 L MCV 83 L MCH 26 L 25 L MCHC 30 L 30 L RDW 19.1 H 18.9 H Plt Count Lymph % (Auto) [place] % (Auto) Eos % (Auto) Lymph # [place] # Eos # Seg Neutrophils % Seg Neuts % (Manual) 83.0 H Lymphocytes % (Manual) 3.0 L Monocytes % (Manual) 9.0 H Eosinophils % (Manual) Nucleated RBC % Seg Neutrophils # Seg Neutrophils # Man 18.4 H Lymphocytes # (Manual) 0.7 L Monocytes # (Manual) 2.0 H Eosinophils # (Manual) PT INR POC ABG pH POC ABG pCO2 POC ABG pO2 Sodium 152 H Potassium Chloride 117.1 H Carbon Dioxide 17 L BUN 66 H Creatinine 2.8 H Glucose 119 H POC Glucose Lactic Acid Calcium 7.8 L Phosphorus Magnesium 2.70 H AST ALT Alkaline Phosphatase Troponin T C-Reactive Protein Total Protein Albumin LDL Cholesterol Direct HDL Cholesterol Urine Creatinine Hepatitis C Antibody Crossmatch Crossmatch P[place]armed 11/20/17 11/20/17 11/20/17 03:29 04:48 13:38 WBC RBC Hgb Hct MCV MCH MCHC RDW Plt Count Lymph % (Auto) [place] % (Auto) Eos % (Auto) Lymph # [place] # Eos # Seg Neutrophils % Seg Neuts % (Manual) Lymphocytes % (Manual) Monocytes % (Manual) Eosinophils % (Manual) Nucleated RBC % Seg Neutrophils # Seg Neutrophils # Man Lymphocytes # (Manual) Monocytes # (Manual) Eosinophils # (Manual) PT INR POC ABG pH POC ABG pCO2 29.4 L POC ABG pO2 Sodium 148 H Potassium 3.4 L Chloride 113.7 H Carbon Dioxide 18 L BUN 59 H Creatinine 2.7 H Glucose 113 H POC Glucose 128 H Lactic Acid Calcium 7.8 L Phosphorus Magnesium AST ALT Alkaline Phosphatase Troponin T C-Reactive Protein Total Protein Albumin LDL Cholesterol Direct HDL Cholesterol Urine Creatinine Hepatitis C Antibody Crossmatch Crossmatch P[place]armed 11/20/17 11/20/17 11/21/17 17:38 23:40 00:13 WBC RBC Hgb 8.4 L Hct 28.0 L MCV MCH MCHC RDW Plt Count Lymph % (Auto) [place] % (Auto) Eos % (Auto) Lymph # [place] # Eos # Seg Neutrophils % Seg Neuts % (Manual) Lymphocytes % (Manual) Monocytes % (Manual) Eosinophils % (Manual) Nucleated RBC % Seg Neutrophils # Seg Neutrophils # Man Lymphocytes # (Manual) Monocytes # (Manual) Eosinophils # (Manual) PT INR POC ABG pH POC ABG pCO2 POC ABG pO2 Sodium Potassium Chloride Carbon Dioxide BUN Creatinine Glucose POC Glucose 115 H 145 H Lactic Acid Calcium Phosphorus Magnesium AST ALT Alkaline Phosphatase Troponin T C-Reactive Protein Total Protein Albumin LDL Cholesterol Direct HDL Cholesterol Urine Creatinine Hepatitis C Antibody Crossmatch Crossmatch P[place]armed 11/21/17 11/21/17 11/21/17 04:30 04:30 04:58 WBC 21.0 H RBC Hgb 9.6 L Hct 32.7 L MCV MCH 25 L MCHC 29 L RDW 19.7 H Plt Count 746 H Lymph % (Auto) [place] % (Auto) Eos % (Auto) Lymph # [place] # Eos # Seg Neutrophils % Seg Neuts % (Manual) Lymphocytes % (Manual) Monocytes % (Manual) Eosinophils % (Manual) Nucleated RBC % Seg Neutrophils # Seg Neutrophils # Man Lymphocytes # (Manual) Monocytes # (Manual) Eosinophils # (Manual) PT INR POC ABG pH POC ABG pCO2 POC ABG pO2 Sodium Potassium Chloride 109.4 H Carbon Dioxide 14 L BUN 59 H Creatinine 3.0 H Glucose 137 H POC Glucose 132 H Lactic Acid Calcium 7.6 L Phosphorus Magnesium AST ALT Alkaline Phosphatase Troponin T C-Reactive Protein Total Protein Albumin LDL Cholesterol Direct HDL Cholesterol Urine Creatinine Hepatitis C Antibody Crossmatch Crossmatch P[place]armed 11/21/17 11/21/17 11/21/17 06:30 13:43 14:17 WBC 38.2 H RBC Hgb 9.0 L Hct 32.3 L MCV MCH 25 L MCHC 28 L RDW 20.0 H Plt Count 766 H Lymph % (Auto) [place] % (Auto) Eos % (Auto) Lymph # [place] # Eos # Seg Neutrophils % Seg Neuts % (Manual) 85.0 H Lymphocytes % (Manual) 1.0 L Monocytes % (Manual) Eosinophils % (Manual) Nucleated RBC % 2.0 H Seg Neutrophils # Seg Neutrophils # Man 32.5 H Lymphocytes # (Manual) 0.4 L Monocytes # (Manual) 2.3 H Eosinophils # (Manual) PT INR POC ABG pH POC ABG pCO2 18.6 L POC ABG pO2 121 H Sodium 146 H Potassium Chloride 110.9 H Carbon Dioxide 11 L BUN 62 H Creatinine 4.0 H Glucose 64 L POC Glucose Lactic Acid Calcium 7.6 L Phosphorus Magnesium AST ALT Alkaline Phosphatase Troponin T C-Reactive Protein Total Protein Albumin LDL Cholesterol Direct HDL Cholesterol Urine Creatinine Hepatitis C Antibody Crossmatch Crossmatch P[place]armed 11/21/17 11/21/17 11/22/17 14:17 19:09 00:05 WBC RBC Hgb Hct MCV MCH MCHC RDW Plt Count Lymph % (Auto) [place] % (Auto) Eos % (Auto) Lymph # [place] # Eos # Seg Neutrophils % Seg Neuts % (Manual) Lymphocytes % (Manual) Monocytes % (Manual) Eosinophils % (Manual) Nucleated RBC % Seg Neutrophils # Seg Neutrophils # Man Lymphocytes # (Manual) Monocytes # (Manual) Eosinophils # (Manual) PT INR POC ABG pH POC ABG pCO2 20.0 L POC ABG pO2 Sodium Potassium Chloride Carbon Dioxide BUN Creatinine Glucose POC Glucose 127 H Lactic Acid 7.70 H* Calcium Phosphorus Magnesium AST ALT Alkaline Phosphatase Troponin T C-Reactive Protein Total Protein Albumin LDL Cholesterol Direct HDL Cholesterol Urine Creatinine Hepatitis C Antibody Crossmatch Crossmatch P[place]armed 11/22/17 11/22/17 11/22/17 03:53 06:00 07:25 WBC RBC Hgb Hct MCV MCH MCHC RDW Plt Count Lymph % (Auto) [place] % (Auto) Eos % (Auto) Lymph # [place] # Eos # Seg Neutrophils % Seg Neuts % (Manual) Lymphocytes % (Manual) Monocytes % (Manual) Eosinophils % (Manual) Nucleated RBC % Seg Neutrophils # Seg Neutrophils # Man Lymphocytes # (Manual) Monocytes # (Manual) Eosinophils # (Manual) PT INR POC ABG pH POC ABG pCO2 22.2 L POC ABG pO2 Sodium 147 H Potassium Chloride 111.9 H Carbon Dioxide 16 L BUN 72 H Creatinine 5.1 H Glucose 181 H POC Glucose 180 H Lactic Acid Calcium 7.1 L Phosphorus Magnesium AST ALT Alkaline Phosphatase Troponin T C-Reactive Protein Total Protein Albumin LDL Cholesterol Direct HDL Cholesterol Urine Creatinine Hepatitis C Antibody Crossmatch Crossmatch P[place]armed 11/22/17 11/22/17 11/22/17 07:25 07:25 12:05 WBC 31.4 H RBC 3.22 L Hgb 8.0 L Hct 26.7 L MCV 83 L MCH 25 L MCHC 30 L RDW 19.4 H Plt Count 602 H Lymph % (Auto) [place] % (Auto) Eos % (Auto) Lymph # [place] # Eos # Seg Neutrophils % Seg Neuts % (Manual) Lymphocytes % (Manual) Monocytes % (Manual) Eosinophils % (Manual) Nucleated RBC % Seg Neutrophils # Seg Neutrophils # Man Lymphocytes # (Manual) Monocytes # (Manual) Eosinophils # (Manual) PT INR POC ABG pH POC ABG pCO2 POC ABG pO2 Sodium Potassium Chloride Carbon Dioxide BUN Creatinine Glucose POC Glucose 182 H Lactic Acid 5.00 H* Calcium Phosphorus Magnesium AST ALT Alkaline Phosphatase Troponin T C-Reactive Protein Total Protein Albumin LDL Cholesterol Direct HDL Cholesterol Urine Creatinine Hepatitis C Antibody Crossmatch Crossmatch P[place]armed 11/22/17 11/23/17 11/23/17 19:45 01:28 04:56 WBC RBC Hgb Hct MCV MCH MCHC RDW Plt Count Lymph % (Auto) [place] % (Auto) Eos % (Auto) Lymph # [place] # Eos # Seg Neutrophils % Seg Neuts % (Manual) Lymphocytes % (Manual) Monocytes % (Manual) Eosinophils % (Manual) Nucleated RBC % Seg Neutrophils # Seg Neutrophils # Man Lymphocytes # (Manual) Monocytes # (Manual) Eosinophils # (Manual) PT INR POC ABG pH 7.505 H POC ABG pCO2 26.3 L POC ABG pO2 Sodium Potassium Chloride Carbon Dioxide BUN Creatinine Glucose POC Glucose 165 H Lactic Acid Calcium Phosphorus Magnesium AST ALT Alkaline Phosphatase Troponin T C-Reactive Protein Total Protein Albumin LDL Cholesterol Direct HDL Cholesterol Urine Creatinine Hepatitis C Antibody Reactive A Crossmatch Crossmatch P[place]armed 11/23/17 11/23/17 11/23/17 07:05 12:32 17:53 WBC RBC Hgb Hct MCV MCH MCHC RDW Plt Count Lymph % (Auto) [place] % (Auto) Eos % (Auto) Lymph # [place] # Eos # Seg Neutrophils % Seg Neuts % (Manual) Lymphocytes % (Manual) Monocytes % (Manual) Eosinophils % (Manual) Nucleated RBC % Seg Neutrophils # Seg Neutrophils # Man Lymphocytes # (Manual) Monocytes # (Manual) Eosinophils # (Manual) PT INR POC ABG pH POC ABG pCO2 POC ABG pO2 Sodium Potassium Chloride Carbon Dioxide 18 L BUN 61 H Creatinine 4.2 H Glucose 153 H POC Glucose 138 H 173 H Lactic Acid Calcium 7.5 L Phosphorus Magnesium AST ALT Alkaline Phosphatase Troponin T C-Reactive Protein Total Protein Albumin LDL Cholesterol Direct HDL Cholesterol Urine Creatinine Hepatitis C Antibody Crossmatch Crossmatch P[place]armed 11/23/17 11/24/17 11/24/17 23:41 05:42 05:42 WBC 21.5 H RBC 2.48 L Hgb 6.2 L Hct 20.3 L D MCV 82 L MCH 25 L MCHC 31 L RDW 18.9 H Plt Count Lymph % (Auto) [place] % (Auto) Eos % (Auto) Lymph # [place] # Eos # Seg Neutrophils % Seg Neuts % (Manual) 94.0 H Lymphocytes % (Manual) 3.0 L Monocytes % (Manual) Eosinophils % (Manual) Nucleated RBC % Seg Neutrophils # Seg Neutrophils # Man 20.2 H Lymphocytes # (Manual) 0.6 L Monocytes # (Manual) Eosinophils # (Manual) PT INR POC ABG pH POC ABG pCO2 POC ABG pO2 Sodium 149 H Potassium 2.8 L* D Chloride 113.9 H Carbon Dioxide 19 L BUN 31 H Creatinine 2.3 H Glucose 103 H POC Glucose 133 H Lactic Acid Calcium 5.3 L* D Phosphorus Magnesium 1.30 L AST ALT Alkaline Phosphatase Troponin T C-Reactive Protein Total Protein Albumin LDL Cholesterol Direct HDL Cholesterol Urine Creatinine Hepatitis C Antibody Crossmatch Crossmatch P[place]armed 11/24/17 11/24/17 11/24/17 05:42 08:27 08:27 WBC RBC Hgb Hct MCV MCH MCHC RDW Plt Count Lymph % (Auto) [place] % (Auto) Eos % (Auto) Lymph # [place] # Eos # Seg Neutrophils % Seg Neuts % (Manual) Lymphocytes % (Manual) Monocytes % (Manual) Eosinophils % (Manual) Nucleated RBC % Seg Neutrophils # Seg Neutrophils # Man Lymphocytes # (Manual) Monocytes # (Manual) Eosinophils # (Manual) PT INR POC ABG pH POC ABG pCO2 POC ABG pO2 Sodium Potassium Chloride Carbon Dioxide BUN Creatinine Glucose POC Glucose Lactic Acid 5.40 H* 5.20 H* Calcium Phosphorus Magnesium AST ALT Alkaline Phosphatase Troponin T C-Reactive Protein Total Protein Albumin LDL Cholesterol Direct HDL Cholesterol Urine Creatinine Hepatitis C Antibody Crossmatch See Detail Crossmatch P[place]armed 11/24/17 11/24/17 11/24/17 12:13 17:22 21:53 WBC 23.0 H RBC 3.32 L Hgb 8.8 L Hct 27.1 L D MCV 82 L MCH 26 L MCHC RDW 17.3 H Plt Count Lymph % (Auto) [place] % (Auto) Eos % (Auto) Lymph # [place] # Eos # Seg Neutrophils % Seg Neuts % (Manual) Lymphocytes % (Manual) Monocytes % (Manual) Eosinophils % (Manual) Nucleated RBC % Seg Neutrophils # Seg Neutrophils # Man Lymphocytes # (Manual) Monocytes # (Manual) Eosinophils # (Manual) PT INR POC ABG pH POC ABG pCO2 POC ABG pO2 Sodium Potassium Chloride Carbon Dioxide BUN Creatinine Glucose POC Glucose 138 H 180 H Lactic Acid Calcium Phosphorus Magnesium AST ALT Alkaline Phosphatase Troponin T C-Reactive Protein Total Protein Albumin LDL Cholesterol Direct HDL Cholesterol Urine Creatinine Hepatitis C Antibody Crossmatch Crossmatch P[place]armed 11/24/17 11/24/17 11/25/17 21:53 23:28 04:19 WBC RBC Hgb Hct MCV MCH MCHC RDW Plt Count Lymph % (Auto) [place] % (Auto) Eos % (Auto) Lymph # [place] # Eos # Seg Neutrophils % Seg Neuts % (Manual) Lymphocytes % (Manual) Monocytes % (Manual) Eosinophils % (Manual) Nucleated RBC % Seg Neutrophils # Seg Neutrophils # Man Lymphocytes # (Manual) Monocytes # (Manual) Eosinophils # (Manual) PT INR POC ABG pH POC ABG pCO2 POC ABG pO2 Sodium Potassium Chloride 96.3 L Carbon Dioxide BUN 28 H 31 H Creatinine 2.3 H 2.6 H Glucose 125 H 101 H POC Glucose 111 H Lactic Acid Calcium 7.5 L D 7.4 L Phosphorus Magnesium AST 170 H ALT 179 H Alkaline Phosphatase 175 H Troponin T C-Reactive Protein Total Protein 5.5 L Albumin 1.8 L LDL Cholesterol Direct HDL Cholesterol Urine Creatinine Hepatitis C Antibody Crossmatch Crossmatch P[place]armed 11/25/17 11/25/17 11/26/17 04:19 04:19 06:29 WBC 22.5 H RBC 3.48 L Hgb 9.1 L Hct 28.3 L MCV 81 L MCH 26 L MCHC RDW 17.4 H Plt Count Lymph % (Auto) [place] % (Auto) Eos % (Auto) Lymph # [place] # Eos # Seg Neutrophils % Seg Neuts % (Manual) Lymphocytes % (Manual) Monocytes % (Manual) Eosinophils % (Manual) Nucleated RBC % Seg Neutrophils # Seg Neutrophils # Man Lymphocytes # (Manual) Monocytes # (Manual) Eosinophils # (Manual) PT 23.6 H INR 1.96 H POC ABG pH POC ABG pCO2 POC ABG pO2 Sodium Potassium Chloride Carbon Dioxide BUN 31 H Creatinine 2.6 H Glucose 101 H POC Glucose Lactic Acid Calcium 7.5 L Phosphorus Magnesium AST ALT Alkaline Phosphatase Troponin T C-Reactive Protein Total Protein Albumin LDL Cholesterol Direct HDL Cholesterol Urine Creatinine Hepatitis C Antibody Crossmatch Crossmatch P[place]armed 11/26/17 11/27/17 11/27/17 06:34 04:06 04:06 WBC 11.3 H RBC 3.13 L Hgb 8.4 L Hct 25.8 L MCV 82 L MCH 27 L MCHC RDW 17.7 H Plt Count Lymph % (Auto) 7.4 L [place] % (Auto) Eos % (Auto) Lymph # 0.8 L [place] # Eos # Seg Neutrophils % 83.7 H Seg Neuts % (Manual) Lymphocytes % (Manual) Monocytes % (Manual) Eosinophils % (Manual) Nucleated RBC % Seg Neutrophils # 9.5 H Seg Neutrophils # Man Lymphocytes # (Manual) Monocytes # (Manual) Eosinophils # (Manual) PT INR POC ABG pH POC ABG pCO2 POC ABG pO2 Sodium Potassium Chloride 97.9 L Carbon Dioxide BUN 43 H 29 H Creatinine 3.5 H 2.9 H Glucose POC Glucose Lactic Acid Calcium 7.5 L 8.1 L Phosphorus Magnesium AST ALT Alkaline Phosphatase Troponin T C-Reactive Protein Total Protein Albumin LDL Cholesterol Direct HDL Cholesterol Urine Creatinine Hepatitis C Antibody Crossmatch Crossmatch [facility] 11/27/17 11/28/17 11/28/17 18:11 00:16 03:50 WBC RBC Hgb Hct MCV MCH MCHC RDW Plt Count Lymph % (Auto) [place] % (Auto) Eos % (Auto) Lymph # [place] # Eos # Seg Neutrophils % Seg Neuts % (Manual) Lymphocytes % (Manual) Monocytes % (Manual) Eosinophils % (Manual) Nucleated RBC % Seg Neutrophils # Seg Neutrophils # Man Lymphocytes # (Manual) Monocytes # (Manual) Eosinophils # (Manual) PT INR POC ABG pH POC ABG pCO2 POC ABG pO2 Sodium Potassium Chloride Carbon Dioxide BUN 39 H Creatinine 4.1 H Glucose 108 H POC Glucose 110 H 124 H Lactic Acid Calcium 7.9 L Phosphorus Magnesium AST ALT Alkaline Phosphatase Troponin T C-Reactive Protein Total Protein Albumin LDL Cholesterol Direct HDL Cholesterol Urine Creatinine Hepatitis C Antibody Crossmatch Crossmatch [facility] 11/28/17 11/28/17 11/28/17 05:03 11:36 17:42 WBC RBC Hgb Hct MCV MCH MCHC RDW Plt Count Lymph % (Auto) [place] % (Auto) Eos % (Auto) Lymph # [place] # Eos # Seg Neutrophils % Seg Neuts % (Manual) Lymphocytes % (Manual) Monocytes % (Manual) Eosinophils % (Manual) Nucleated RBC % Seg Neutrophils # Seg Neutrophils # Man Lymphocytes # (Manual) Monocytes # (Manual) Eosinophils # (Manual) PT INR POC ABG pH POC ABG pCO2 POC ABG pO2 Sodium Potassium Chloride Carbon Dioxide BUN Creatinine Glucose POC Glucose 134 H 114 H 119 H Lactic Acid Calcium Phosphorus Magnesium AST ALT Alkaline Phosphatase Troponin T C-Reactive Protein Total Protein Albumin LDL Cholesterol Direct HDL Cholesterol Urine Creatinine Hepatitis C Antibody Crossmatch Crossmatch [facility] 11/29/17 11/29/17 11/29/17 00:22 05:25 05:25 WBC 12.3 H RBC 3.34 L Hgb 8.6 L Hct 27.3 L MCV 82 L MCH 26 L MCHC RDW 18.5 H Plt Count Lymph % (Auto) 3.7 L [place] % (Auto) 7.7 H Eos % (Auto) Lymph # 0.5 L [place] # 1.0 H Eos # Seg Neutrophils % 86.5 H Seg Neuts % (Manual) Lymphocytes % (Manual) Monocytes % (Manual) Eosinophils % (Manual) Nucleated RBC % Seg Neutrophils # 10.7 H Seg Neutrophils # Man Lymphocytes # (Manual) Monocytes # (Manual) Eosinophils # (Manual) PT INR POC ABG pH POC ABG pCO2 POC ABG pO2 Sodium Potassium Chloride Carbon Dioxide BUN 29 H Creatinine 3.5 H Glucose 109 H POC Glucose 137 H Lactic Acid Calcium 7.8 L Phosphorus Magnesium AST ALT Alkaline Phosphatase Troponin T C-Reactive Protein Total Protein Albumin LDL Cholesterol Direct HDL Cholesterol Urine Creatinine Hepatitis C Antibody Crossmatch Crossmatch [facility] 11/29/17 11/30/17 11/30/17 05:26 00:26 04:17 WBC RBC Hgb Hct MCV MCH MCHC RDW Plt Count Lymph % (Auto) [place] % (Auto) Eos % (Auto) Lymph # [place] # Eos # Seg Neutrophils % Seg Neuts % (Manual) Lymphocytes % (Manual) Monocytes % (Manual) Eosinophils % (Manual) Nucleated RBC % Seg Neutrophils # Seg Neutrophils # Man Lymphocytes # (Manual) Monocytes # (Manual) Eosinophils # (Manual) PT INR POC ABG pH POC ABG pCO2 POC ABG pO2 Sodium Potassium Chloride Carbon Dioxide BUN 38 H Creatinine 4.3 H Glucose 109 H POC Glucose 129 H 152 H Lactic Acid Calcium 7.8 L Phosphorus Magnesium AST ALT Alkaline Phosphatase Troponin T C-Reactive Protein Total Protein Albumin LDL Cholesterol Direct HDL Cholesterol Urine Creatinine Hepatitis C Antibody Crossmatch Crossmatch [facility] 11/30/17 11/30/17 11/30/17 12:17 16:23 23:35 WBC RBC Hgb Hct MCV MCH MCHC RDW Plt Count Lymph % (Auto) [place] % (Auto) Eos % (Auto) Lymph # [place] # Eos # Seg Neutrophils % Seg Neuts % (Manual) Lymphocytes % (Manual) Monocytes % (Manual) Eosinophils % (Manual) Nucleated RBC % Seg Neutrophils # Seg Neutrophils # Man Lymphocytes # (Manual) Monocytes # (Manual) Eosinophils # (Manual) PT INR POC ABG pH POC ABG pCO2 POC ABG pO2 Sodium Potassium Chloride Carbon Dioxide BUN Creatinine Glucose POC Glucose 170 H 114 H 122 H Lactic Acid Calcium Phosphorus Magnesium AST ALT Alkaline Phosphatase Troponin T C-Reactive Protein Total Protein Albumin LDL Cholesterol Direct HDL Cholesterol Urine Creatinine Hepatitis C Antibody Crossmatch Crossmatch [facility] 12/01/17 12/01/17 12/01/17 04:09 04:09 12:17 WBC 14.1 H RBC 3.32 L Hgb 8.6 L Hct 27.0 L MCV 81 L MCH 26 L MCHC RDW 18.7 H Plt Count Lymph % (Auto) 5.5 L [place] % (Auto) 9.7 H Eos % (Auto) Lymph # 0.8 L [place] # 1.4 H Eos # Seg Neutrophils % 82.9 H Seg Neuts % (Manual) Lymphocytes % (Manual) Monocytes % (Manual) Eosinophils % (Manual) Nucleated RBC % Seg Neutrophils # 11.7 H Seg Neutrophils # Man Lymphocytes # (Manual) Monocytes # (Manual) Eosinophils # (Manual) PT INR POC ABG pH POC ABG pCO2 POC ABG pO2 Sodium Potassium 3.4 L Chloride Carbon Dioxide BUN 21 H Creatinine 3.0 H Glucose 108 H POC Glucose 126 H Lactic Acid Calcium 8.0 L Phosphorus Magnesium AST ALT Alkaline Phosphatase Troponin T C-Reactive Protein Total Protein Albumin LDL Cholesterol Direct HDL Cholesterol Urine Creatinine Hepatitis C Antibody Crossmatch Crossmatch [facility] 12/02/17 12/03/17 12/03/17 23:46 02:52 05:54 WBC 17.2 H RBC 3.21 L Hgb 8.5 L Hct 25.8 L MCV 80 L MCH 26 L MCHC RDW 18.4 H Plt Count 128 L Lymph % (Auto) [place] % (Auto) Eos % (Auto) Lymph # [place] # Eos # Seg Neutrophils % Seg Neuts % (Manual) Lymphocytes % (Manual) Monocytes % (Manual) Eosinophils % (Manual) Nucleated RBC % Seg Neutrophils # Seg Neutrophils # Man Lymphocytes # (Manual) Monocytes # (Manual) Eosinophils # (Manual) PT INR POC ABG pH POC ABG pCO2 POC ABG pO2 Sodium Potassium Chloride Carbon Dioxide BUN Creatinine Glucose POC Glucose 125 H 107 H Lactic Acid Calcium Phosphorus Magnesium AST ALT Alkaline Phosphatase Troponin T C-Reactive Protein Total Protein Albumin LDL Cholesterol Direct HDL Cholesterol Urine Creatinine Hepatitis C Antibody Crossmatch Crossmatch [facility] 12/03/17 12/03/17 12/04/17 12:05 Unknown 12:26 WBC RBC Hgb Hct MCV MCH MCHC RDW Plt Count Lymph % (Auto) [place] % (Auto) Eos % (Auto) Lymph # [place] # Eos # Seg Neutrophils % Seg Neuts % (Manual) Lymphocytes % (Manual) Monocytes % (Manual) Eosinophils % (Manual) Nucleated RBC % Seg Neutrophils # Seg Neutrophils # Man Lymphocytes # (Manual) Monocytes # (Manual) Eosinophils # (Manual) PT INR POC ABG pH POC ABG pCO2 POC ABG pO2 Sodium Potassium Chloride Carbon Dioxide BUN 21 H Creatinine 2.8 H Glucose 113 H POC Glucose 106 H 119 H Lactic Acid Calcium Phosphorus Magnesium AST ALT Alkaline Phosphatase Troponin T C-Reactive Protein Total Protein Albumin LDL Cholesterol Direct HDL Cholesterol Urine Creatinine Hepatitis C Antibody Crossmatch Crossmatch [facility] 12/04/17 12/05/17 12/05/17 17:57 00:52 04:05 WBC RBC 2.96 L Hgb 7.7 L Hct 24.2 L MCV 82 L MCH 26 L MCHC RDW 18.8 H Plt Count 105 L Lymph % (Auto) 10.6 L [place] % (Auto) 12.1 H Eos % (Auto) 5.2 H Lymph # 1.1 L [place] # 1.3 H Eos # 0.5 H Seg Neutrophils % 71.3 H Seg Neuts % (Manual) Lymphocytes % (Manual) Monocytes % (Manual) Eosinophils % (Manual) Nucleated RBC % Seg Neutrophils # Seg Neutrophils # Man Lymphocytes # (Manual) Monocytes # (Manual) Eosinophils # (Manual) PT INR POC ABG pH POC ABG pCO2 POC ABG pO2 Sodium Potassium Chloride Carbon Dioxide BUN Creatinine Glucose POC Glucose 140 H 117 H Lactic Acid Calcium Phosphorus Magnesium AST ALT Alkaline Phosphatase Troponin T C-Reactive Protein Total Protein Albumin LDL Cholesterol Direct HDL Cholesterol Urine Creatinine Hepatitis C Antibody Crossmatch Crossmatch [facility] 12/05/17 12/05/17 12/06/17 04:05 22:50 08:18 WBC RBC 2.80 L Hgb 7.4 L Hct 23.0 L MCV 82 L MCH 27 L MCHC RDW 19.5 H Plt Count 125 L Lymph % (Auto) [place] % (Auto) Eos % (Auto) Lymph # [place] # Eos # Seg Neutrophils % Seg Neuts % (Manual) Lymphocytes % (Manual) Monocytes % (Manual) Eosinophils % (Manual) Nucleated RBC % Seg Neutrophils # Seg Neutrophils # Man Lymphocytes # (Manual) Monocytes # (Manual) Eosinophils # (Manual) PT INR POC ABG pH POC ABG pCO2 POC ABG pO2 Sodium Potassium Chloride 107.4 H Carbon Dioxide BUN Creatinine 2.5 H Glucose POC Glucose 112 H Lactic Acid Calcium 8.3 L Phosphorus Magnesium AST ALT Alkaline Phosphatase Troponin T C-Reactive Protein Total Protein Albumin LDL Cholesterol Direct HDL Cholesterol Urine Creatinine Hepatitis C Antibody Crossmatch Crossmatch [facility] 12/06/17 12/06/17 12/06/17 08:18 12:01 23:58 WBC RBC Hgb Hct MCV MCH MCHC RDW Plt Count Lymph % (Auto) [place] % (Auto) Eos % (Auto) Lymph # [place] # Eos # Seg Neutrophils % Seg Neuts % (Manual) Lymphocytes % (Manual) Monocytes % (Manual) Eosinophils % (Manual) Nucleated RBC % Seg Neutrophils # Seg Neutrophils # Man Lymphocytes # (Manual) Monocytes # (Manual) Eosinophils # (Manual) PT INR POC ABG pH POC ABG pCO2 POC ABG pO2 Sodium Potassium Chloride 108.4 H Carbon Dioxide BUN 28 H Creatinine 3.7 H Glucose 103 H POC Glucose 106 H 108 H Lactic Acid Calcium 8.0 L Phosphorus Magnesium AST ALT Alkaline Phosphatase Troponin T C-Reactive Protein Total Protein Albumin LDL Cholesterol Direct HDL Cholesterol Urine Creatinine Hepatitis C Antibody Crossmatch Crossmatch [facility] 12/07/17 12/07/17 12/07/17 05:47 05:47 18:03 WBC RBC 2.79 L Hgb 7.3 L Hct 22.8 L MCV 82 L MCH 26 L MCHC RDW 19.1 H Plt Count 101 L Lymph % (Auto) [place] % (Auto) Eos % (Auto) Lymph # [place] # Eos # Seg Neutrophils % Seg Neuts % (Manual) 72.0 H Lymphocytes % (Manual) 13.0 L Monocytes % (Manual) Eosinophils % (Manual) 9.0 H Nucleated RBC % Seg Neutrophils # Seg Neutrophils # Man Lymphocytes # (Manual) 1.1 L Monocytes # (Manual) Eosinophils # (Manual) 0.8 H PT INR POC ABG pH POC ABG pCO2 POC ABG pO2 Sodium 146 H Potassium Chloride 109.8 H Carbon Dioxide BUN 36 H Creatinine 4.0 H Glucose POC Glucose 143 H Lactic Acid Calcium 8.0 L Phosphorus Magnesium AST ALT Alkaline Phosphatase Troponin T C-Reactive Protein Total Protein Albumin LDL Cholesterol Direct HDL Cholesterol Urine Creatinine Hepatitis C Antibody Crossmatch Crossmatch [facility] 12/07/17 12/08/17 12/08/17 23:33 05:10 05:10 WBC RBC 2.91 L Hgb 7.5 L Hct 24.4 L MCV MCH 26 L MCHC 31 L RDW 19.7 H Plt Count 109 L Lymph % (Auto) [place] % (Auto) Eos % (Auto) Lymph # [place] # Eos # Seg Neutrophils % Seg Neuts % (Manual) Lymphocytes % (Manual) 11.0 L Monocytes % (Manual) Eosinophils % (Manual) 12.0 H Nucleated RBC % Seg Neutrophils # Seg Neutrophils # Man Lymphocytes # (Manual) 0.7 L Monocytes # (Manual) Eosinophils # (Manual) 0.7 H PT INR POC ABG pH POC ABG pCO2 POC ABG pO2 Sodium 147 H Potassium Chloride 110.4 H Carbon Dioxide BUN Creatinine 2.8 H Glucose POC Glucose 107 H Lactic Acid Calcium 7.8 L Phosphorus Magnesium AST ALT Alkaline Phosphatase Troponin T C-Reactive Protein Total Protein Albumin LDL Cholesterol Direct HDL Cholesterol Urine Creatinine Hepatitis C Antibody Crossmatch Crossmatch [facility] 12/09/17 12/09/17 12/09/17 04:18 04:18 12:16 WBC RBC Hgb 7.2 L Hct 23.2 L MCV MCH MCHC RDW Plt Count Lymph % (Auto) [place] % (Auto) Eos % (Auto) Lymph # [place] # Eos # Seg Neutrophils % Seg Neuts % (Manual) Lymphocytes % (Manual) Monocytes % (Manual) Eosinophils % (Manual) Nucleated RBC % Seg Neutrophils # Seg Neutrophils # Man Lymphocytes # (Manual) Monocytes # (Manual) Eosinophils # (Manual) PT INR POC ABG pH POC ABG pCO2 POC ABG pO2 Sodium 150 H Potassium Chloride 114.5 H Carbon Dioxide BUN 25 H Creatinine 3.3 H Glucose POC Glucose 142 H Lactic Acid Calcium 7.7 L Phosphorus Magnesium AST ALT Alkaline Phosphatase Troponin T C-Reactive Protein Total Protein Albumin LDL Cholesterol Direct HDL Cholesterol Urine Creatinine Hepatitis C Antibody Crossmatch Crossmatch [facility] 12/10/17 12/10/17 12/11/17 05:14 05:14 12:05 WBC RBC 2.81 L Hgb 7.4 L Hct 23.9 L MCV MCH 26 L MCHC 31 L RDW 19.1 H Plt Count 128 L Lymph % (Auto) [place] % (Auto) Eos % (Auto) Lymph # [place] # Eos # Seg Neutrophils % Seg Neuts % (Manual) 78.0 H Lymphocytes % (Manual) 8.0 L Monocytes % (Manual) Eosinophils % (Manual) 5.0 H Nucleated RBC % Seg Neutrophils # Seg Neutrophils # Man Lymphocytes # (Manual) 0.6 L Monocytes # (Manual) Eosinophils # (Manual) PT INR POC ABG pH POC ABG pCO2 POC ABG pO2 Sodium Potassium Chloride Carbon Dioxide BUN Creatinine 2.2 H Glucose POC Glucose 127 H Lactic Acid Calcium 7.8 L Phosphorus Magnesium AST ALT Alkaline Phosphatase Troponin T C-Reactive Protein Total Protein Albumin LDL Cholesterol Direct HDL Cholesterol Urine Creatinine Hepatitis C Antibody Crossmatch Crossmatch [facility] 12/11/17 12/11/17 12/11/17 15:26 18:36 23:40 WBC RBC Hgb Hct MCV MCH MCHC RDW Plt Count Lymph % (Auto) [place] % (Auto) Eos % (Auto) Lymph # [place] # Eos # Seg Neutrophils % Seg Neuts % (Manual) Lymphocytes % (Manual) Monocytes % (Manual) Eosinophils % (Manual) Nucleated RBC % Seg Neutrophils # Seg Neutrophils # Man Lymphocytes # (Manual) Monocytes # (Manual) Eosinophils # (Manual) PT INR POC ABG pH POC ABG pCO2 POC ABG pO2 Sodium Potassium 3.3 L Chloride Carbon Dioxide BUN Creatinine 1.6 H Glucose POC Glucose 106 H 110 H Lactic Acid Calcium 7.6 L Phosphorus Magnesium AST ALT Alkaline Phosphatase Troponin T C-Reactive Protein Total Protein Albumin LDL Cholesterol Direct HDL Cholesterol Urine Creatinine Hepatitis C Antibody Crossmatch Crossmatch [facility] 12/12/17 12/12/17 12/12/17 05:10 05:41 05:41 WBC RBC 3.17 L Hgb 8.1 L Hct 25.7 L MCV 81 L MCH 25 L MCHC 31 L RDW 19.2 H Plt Count Lymph % (Auto) [place] % (Auto) Eos % (Auto) Lymph # [place] # Eos # Seg Neutrophils % Seg Neuts % (Manual) 74.0 H Lymphocytes % (Manual) 6.0 L Monocytes % (Manual) Eosinophils % (Manual) 9.0 H Nucleated RBC % Seg Neutrophils # Seg Neutrophils # Man Lymphocytes # (Manual) 0.6 L Monocytes # (Manual) Eosinophils # (Manual) 0.9 H PT INR POC ABG pH POC ABG pCO2 POC ABG pO2 Sodium Potassium 3.5 L Chloride Carbon Dioxide BUN Creatinine 2.3 H Glucose 113 H POC Glucose 112 H Lactic Acid Calcium 7.5 L Phosphorus Magnesium AST ALT Alkaline Phosphatase Troponin T C-Reactive Protein Total Protein Albumin LDL Cholesterol Direct HDL Cholesterol Urine Creatinine Hepatitis C Antibody Crossmatch Crossmatch [facility] 12/13/17 12/13/17 12/13/17 06:14 12:00 17:37 WBC RBC Hgb Hct MCV MCH MCHC RDW Plt Count Lymph % (Auto) [place] % (Auto) Eos % (Auto) Lymph # [place] # Eos # Seg Neutrophils % Seg Neuts % (Manual) Lymphocytes % (Manual) Monocytes % (Manual) Eosinophils % (Manual) Nucleated RBC % Seg Neutrophils # Seg Neutrophils # Man Lymphocytes # (Manual) Monocytes # (Manual) Eosinophils # (Manual) PT INR POC ABG pH POC ABG pCO2 POC ABG pO2 Sodium Potassium Chloride Carbon Dioxide BUN Creatinine Glucose POC Glucose 130 H 133 H 136 H Lactic Acid Calcium Phosphorus Magnesium AST ALT Alkaline Phosphatase Troponin T C-Reactive Protein Total Protein Albumin LDL Cholesterol Direct HDL Cholesterol Urine Creatinine Hepatitis C Antibody Crossmatch Crossmatch [facility] 12/13/17 12/14/17 12/14/17 23:39 05:11 05:11 WBC RBC Hgb Hct MCV MCH MCHC RDW Plt Count Lymph % (Auto) [place] % (Auto) Eos % (Auto) Lymph # [place] # Eos # Seg Neutrophils % Seg Neuts % (Manual) Lymphocytes % (Manual) Monocytes % (Manual) Eosinophils % (Manual) Nucleated RBC % Seg Neutrophils # Seg Neutrophils # Man Lymphocytes # (Manual) Monocytes # (Manual) Eosinophils # (Manual) PT 15.4 H INR 1.17 H POC ABG pH POC ABG pCO2 POC ABG pO2 Sodium Potassium Chloride Carbon Dioxide 21 L BUN 26 H Creatinine 2.9 H Glucose POC Glucose 108 H Lactic Acid Calcium 7.2 L Phosphorus Magnesium AST ALT Alkaline Phosphatase Troponin T C-Reactive Protein Total Protein Albumin LDL Cholesterol Direct HDL Cholesterol Urine Creatinine Hepatitis C Antibody Crossmatch Crossmatch [facility] 12/14/17 12/14/17 12/14/17 12:00 16:01 18:24 WBC 12.9 H RBC 3.25 L Hgb 8.2 L Hct 26.2 L MCV 81 L MCH 25 L MCHC 31 L RDW 19.2 H Plt Count Lymph % (Auto) [place] % (Auto) Eos % (Auto) Lymph # [place] # Eos # Seg Neutrophils % Seg Neuts % (Manual) Lymphocytes % (Manual) Monocytes % (Manual) Eosinophils % (Manual) Nucleated RBC % Seg Neutrophils # Seg Neutrophils # Man Lymphocytes # (Manual) Monocytes # (Manual) Eosinophils # (Manual) PT INR POC ABG pH POC ABG pCO2 POC ABG pO2 Sodium Potassium Chloride Carbon Dioxide BUN Creatinine Glucose POC Glucose 138 H 120 H Lactic Acid Calcium Phosphorus Magnesium AST ALT Alkaline Phosphatase Troponin T C-Reactive Protein Total Protein Albumin LDL Cholesterol Direct HDL Cholesterol Urine Creatinine Hepatitis C Antibody Crossmatch Crossmatch [facility] 12/14/17 12/14/17 12/15/17 23:29 Unknown 05:57 WBC 12.5 H RBC 2.48 L Hgb 6.0 L Hct 24.4 L MCV 79 L MCH 24 L MCHC 30 L RDW 18.5 H Plt Count 131 L Lymph % (Auto) 7.0 L [place] % (Auto) 8.9 H Eos % (Auto) 8.3 H Lymph # 0.9 L [place] # 1.1 H Eos # 1.0 H Seg Neutrophils % 75.2 H Seg Neuts % (Manual) Lymphocytes % (Manual) Monocytes % (Manual) Eosinophils % (Manual) Nucleated RBC % Seg Neutrophils # 9.4 H Seg Neutrophils # Man Lymphocytes # (Manual) Monocytes # (Manual) Eosinophils # (Manual) PT INR POC ABG pH POC ABG pCO2 POC ABG pO2 Sodium Potassium Chloride Carbon Dioxide BUN Creatinine Glucose POC Glucose 110 H 113 H Lactic Acid Calcium Phosphorus Magnesium AST ALT Alkaline Phosphatase Troponin T C-Reactive Protein Total Protein Albumin LDL Cholesterol Direct HDL Cholesterol Urine Creatinine Hepatitis C Antibody Crossmatch Crossmatch [facility] 12/15/17 12/15/17 12/15/17 11:50 13:37 17:58 WBC RBC Hgb 7.3 L Hct 23.3 L MCV MCH MCHC RDW Plt Count Lymph % (Auto) [place] % (Auto) Eos % (Auto) Lymph # [place] # Eos # Seg Neutrophils % Seg Neuts % (Manual) Lymphocytes % (Manual) Monocytes % (Manual) Eosinophils % (Manual) Nucleated RBC % Seg Neutrophils # Seg Neutrophils # Man Lymphocytes # (Manual) Monocytes # (Manual) Eosinophils # (Manual) PT INR POC ABG pH POC ABG pCO2 POC ABG pO2 Sodium Potassium Chloride Carbon Dioxide BUN Creatinine Glucose POC Glucose 106 H 110 H Lactic Acid Calcium Phosphorus Magnesium AST ALT Alkaline Phosphatase Troponin T C-Reactive Protein Total Protein Albumin LDL Cholesterol Direct HDL Cholesterol Urine Creatinine Hepatitis C Antibody Crossmatch Crossmatch [facility] 12/15/17 12/16/17 12/16/17 23:30 04:55 05:14 WBC 13.2 H RBC 2.79 L Hgb 6.9 L Hct 22.2 L MCV 80 L MCH 25 L MCHC 31 L RDW 18.8 H Plt Count Lymph % (Auto) 7.3 L [place] % (Auto) 11.0 H Eos % (Auto) 8.2 H Lymph # 1.0 L [place] # 1.4 H Eos # 1.1 H Seg Neutrophils % 72.9 H Seg Neuts % (Manual) Lymphocytes % (Manual) Monocytes % (Manual) Eosinophils % (Manual) Nucleated RBC % Seg Neutrophils # 9.6 H Seg Neutrophils # Man Lymphocytes # (Manual) Monocytes # (Manual) Eosinophils # (Manual) PT INR POC ABG pH POC ABG pCO2 POC ABG pO2 Sodium 131 L D Potassium 2.8 L* D Chloride 93.2 L Carbon Dioxide BUN 24 H Creatinine 2.0 H Glucose POC Glucose 111 H Lactic Acid Calcium 7.7 L Phosphorus Magnesium AST ALT Alkaline Phosphatase Troponin T C-Reactive Protein Total Protein Albumin LDL Cholesterol Direct HDL Cholesterol Urine Creatinine Hepatitis C Antibody Crossmatch Crossmatch [facility] 12/16/17 12/16/17 12/16/17 13:01 17:32 23:39 WBC RBC Hgb Hct MCV MCH MCHC RDW Plt Count Lymph % (Auto) [place] % (Auto) Eos % (Auto) Lymph # [place] # Eos # Seg Neutrophils % Seg Neuts % (Manual) Lymphocytes % (Manual) Monocytes % (Manual) Eosinophils % (Manual) Nucleated RBC % Seg Neutrophils # Seg Neutrophils # Man Lymphocytes # (Manual) Monocytes # (Manual) Eosinophils # (Manual) PT INR POC ABG pH POC ABG pCO2 POC ABG pO2 Sodium Potassium Chloride Carbon Dioxide BUN Creatinine Glucose POC Glucose 121 H 107 H Lactic Acid Calcium Phosphorus Magnesium AST ALT Alkaline Phosphatase Troponin T C-Reactive Protein Total Protein Albumin LDL Cholesterol Direct HDL Cholesterol Urine Creatinine Hepatitis C Antibody Crossmatch Crossmatch [facility] See Detail 12/17/17 12/17/17 12/17/17 05:08 05:08 12:03 WBC 12.9 H RBC 2.88 L Hgb 7.2 L Hct 22.6 L MCV 78 L MCH 25 L MCHC RDW 18.3 H Plt Count Lymph % (Auto) 8.0 L [place] % (Auto) 8.6 H Eos % (Auto) Lymph # 1.0 L [place] # 1.1 H Eos # Seg Neutrophils % 79.3 H Seg Neuts % (Manual) Lymphocytes % (Manual) Monocytes % (Manual) Eosinophils % (Manual) Nucleated RBC % Seg Neutrophils # 10.2 H Seg Neutrophils # Man Lymphocytes # (Manual) Monocytes # (Manual) Eosinophils # (Manual) PT INR POC ABG pH POC ABG pCO2 POC ABG pO2 Sodium Potassium 3.4 L D Chloride Carbon Dioxide BUN Creatinine Glucose 104 H POC Glucose 109 H Lactic Acid Calcium 7.6 L Phosphorus Magnesium 1.30 L AST ALT Alkaline Phosphatase 177 H Troponin T C-Reactive Protein Total Protein Albumin 2.0 L LDL Cholesterol Direct HDL Cholesterol Urine Creatinine Hepatitis C Antibody Crossmatch Crossmatch [facility] 12/17/17 12/18/17 12/18/17 23:40 00:50 00:50 WBC 22.6 H RBC 2.76 L Hgb 6.7 L Hct 21.6 L MCV 78 L MCH 24 L MCHC 31 L RDW 18.4 H Plt Count Lymph % (Auto) [place] % (Auto) Eos % (Auto) Lymph # [place] # Eos # Seg Neutrophils % Seg Neuts % (Manual) Lymphocytes % (Manual) Monocytes % (Manual) Eosinophils % (Manual) Nucleated RBC % Seg Neutrophils # Seg Neutrophils # Man Lymphocytes # (Manual) Monocytes # (Manual) Eosinophils # (Manual) PT INR POC ABG pH POC ABG pCO2 POC ABG pO2 Sodium Potassium Chloride Carbon Dioxide BUN 22 H Creatinine 1.6 H Glucose 113 H POC Glucose 120 H Lactic Acid Calcium 7.8 L Phosphorus Magnesium 1.50 L AST ALT Alkaline Phosphatase Troponin T C-Reactive Protein Total Protein Albumin LDL Cholesterol Direct HDL Cholesterol Urine Creatinine Hepatitis C Antibody Crossmatch Crossmatch [facility] 12/18/17 12/18/17 12/18/17 05:34 12:00 18:07 WBC RBC Hgb Hct MCV MCH MCHC RDW Plt Count Lymph % (Auto) [place] % (Auto) Eos % (Auto) Lymph # [place] # Eos # Seg Neutrophils % Seg Neuts % (Manual) Lymphocytes % (Manual) Monocytes % (Manual) Eosinophils % (Manual) Nucleated RBC % Seg Neutrophils # Seg Neutrophils # Man Lymphocytes # (Manual) Monocytes # (Manual) Eosinophils # (Manual) PT INR POC ABG pH POC ABG pCO2 POC ABG pO2 Sodium Potassium Chloride Carbon Dioxide BUN Creatinine Glucose POC Glucose 132 H 136 H 122 H Lactic Acid Calcium Phosphorus Magnesium AST ALT Alkaline Phosphatase Troponin T C-Reactive Protein Total Protein Albumin LDL Cholesterol Direct HDL Cholesterol Urine Creatinine Hepatitis C Antibody Crossmatch Crossmatch [facility] 12/19/17 12/19/17 12/19/17 00:24 00:24 05:17 WBC 15.4 H RBC 2.41 L Hgb 6.1 L Hct 19.0 L* MCV 79 L MCH 25 L MCHC RDW 18.5 H Plt Count Lymph % (Auto) [place] % (Auto) Eos % (Auto) Lymph # [place] # Eos # Seg Neutrophils % Seg Neuts % (Manual) Lymphocytes % (Manual) Monocytes % (Manual) Eosinophils % (Manual) Nucleated RBC % Seg Neutrophils # Seg Neutrophils # Man Lymphocytes # (Manual) Monocytes # (Manual) Eosinophils # (Manual) PT INR POC ABG pH POC ABG pCO2 POC ABG pO2 Sodium Potassium 3.2 L Chloride Carbon Dioxide BUN Creatinine Glucose 117 H POC Glucose 132 H Lactic Acid Calcium 8.2 L Phosphorus Magnesium 1.50 L AST ALT Alkaline Phosphatase Troponin T C-Reactive Protein Total Protein Albumin LDL Cholesterol Direct HDL Cholesterol Urine Creatinine Hepatitis C Antibody Crossmatch Crossmatch [facility] 12/19/17 12/19/17 12/19/17 09:00 09:00 18:01 WBC 12.4 H RBC 2.86 L Hgb 7.2 L Hct 22.6 L MCV 79 L MCH 25 L MCHC RDW 17.2 H Plt Count Lymph % (Auto) 6.8 L [place] % (Auto) 12.6 H Eos % (Auto) Lymph # 0.8 L [place] # 1.6 H Eos # Seg Neutrophils % 80.1 H Seg Neuts % (Manual) Lymphocytes % (Manual) Monocytes % (Manual) Eosinophils % (Manual) Nucleated RBC % Seg Neutrophils # 10.0 H Seg Neutrophils # Man Lymphocytes # (Manual) Monocytes # (Manual) Eosinophils # (Manual) PT INR POC ABG pH POC ABG pCO2 POC ABG pO2 Sodium Potassium 3.1 L Chloride Carbon Dioxide BUN 22 H Creatinine Glucose 113 H POC Glucose 117 H Lactic Acid Calcium 8.3 L Phosphorus Magnesium AST 54 H ALT Alkaline Phosphatase 204 H Troponin T C-Reactive Protein Total Protein 5.8 L Albumin 2.0 L LDL Cholesterol Direct HDL Cholesterol Urine Creatinine Hepatitis C Antibody Crossmatch Crossmatch [facility] 12/19/17 12/20/17 12/20/17 23:49 05:53 19:00 WBC RBC 3.03 L Hgb 7.7 L Hct 23.7 L MCV 78 L MCH 25 L MCHC RDW 17.2 H Plt Count Lymph % (Auto) [place] % (Auto) Eos % (Auto) Lymph # [place] # Eos # Seg Neutrophils % Seg Neuts % (Manual) 74.0 H Lymphocytes % (Manual) 6.0 L Monocytes % (Manual) 17.0 H Eosinophils % (Manual) Nucleated RBC % Seg Neutrophils # Seg Neutrophils # Man Lymphocytes # (Manual) 0.5 L Monocytes # (Manual) 1.5 H Eosinophils # (Manual) PT INR POC ABG pH POC ABG pCO2 POC ABG pO2 Sodium Potassium Chloride Carbon Dioxide BUN Creatinine Glucose POC Glucose 125 H 124 H Lactic Acid Calcium Phosphorus Magnesium AST ALT Alkaline Phosphatase Troponin T C-Reactive Protein Total Protein Albumin LDL Cholesterol Direct HDL Cholesterol Urine Creatinine Hepatitis C Antibody Crossmatch Crossmatch [facility] 12/20/17 12/21/17 12/22/17 19:00 23:54 05:07 WBC RBC Hgb Hct MCV MCH MCHC RDW Plt Count Lymph % (Auto) [place] % (Auto) Eos % (Auto) Lymph # [place] # Eos # Seg Neutrophils % Seg Neuts % (Manual) Lymphocytes % (Manual) Monocytes % (Manual) Eosinophils % (Manual) Nucleated RBC % Seg Neutrophils # Seg Neutrophils # Man Lymphocytes # (Manual) Monocytes # (Manual) Eosinophils # (Manual) PT INR POC ABG pH POC ABG pCO2 POC ABG pO2 Sodium Potassium 3.3 L 2.9 L* Chloride Carbon Dioxide BUN 37 H 43 H Creatinine Glucose 114 H POC Glucose 109 H Lactic Acid Calcium 8.3 L 7.8 L Phosphorus 1.60 L Magnesium 1.50 L AST ALT Alkaline Phosphatase Troponin T C-Reactive Protein Total Protein Albumin LDL Cholesterol Direct HDL Cholesterol Urine Creatinine Hepatitis C Antibody Crossmatch Crossmatch [facility] 12/22/17 12/22/17 12/22/17 05:07 05:07 06:02 WBC 4.1 L RBC 3.09 L Hgb 7.7 L Hct 24.3 L MCV 79 L MCH 25 L MCHC RDW 17.8 H Plt Count Lymph % (Auto) [place] % (Auto) Eos % (Auto) Lymph # [place] # Eos # Seg Neutrophils % Seg Neuts % (Manual) Lymphocytes % (Manual) Monocytes % (Manual) Eosinophils % (Manual) Nucleated RBC % Seg Neutrophils # Seg Neutrophils # Man Lymphocytes # (Manual) Monocytes # (Manual) Eosinophils # (Manual) PT INR POC ABG pH POC ABG pCO2 POC ABG pO2 Sodium Potassium Chloride Carbon Dioxide BUN Creatinine Glucose POC Glucose 107 H Lactic Acid Calcium Phosphorus Magnesium 1.60 L AST ALT Alkaline Phosphatase Troponin T C-Reactive Protein Total Protein Albumin LDL Cholesterol Direct HDL Cholesterol Urine Creatinine Hepatitis C Antibody Crossmatch Crossmatch [facility] 10/02/18 10/02/18 10/02/18 10:50 12:02 17:32 WBC RBC Hgb Hct MCV MCH MCHC RDW Plt Count Lymph % (Auto) [place] % (Auto) Eos % (Auto) Lymph # [place] # Eos # Seg Neutrophils % Seg Neuts % (Manual) Lymphocytes % (Manual) Monocytes % (Manual) Eosinophils % (Manual) Nucleated RBC % Seg Neutrophils # Seg Neutrophils # Man Lymphocytes # (Manual) Monocytes # (Manual) Eosinophils # (Manual) PT INR POC ABG pH POC ABG pCO2 POC ABG pO2 Sodium Potassium Chloride Carbon Dioxide BUN Creatinine Glucose POC Glucose 129 H 111 H Lactic Acid Calcium Phosphorus Magnesium AST ALT Alkaline Phosphatase Troponin T C-Reactive Protein Total Protein Albumin LDL Cholesterol Direct HDL Cholesterol Urine Creatinine 55.8 H Hepatitis C Antibody Crossmatch Crossmatch [facility] 12/22/17 12/22/17 12/23/17 19:03 23:57 05:55 WBC RBC Hgb Hct MCV MCH MCHC RDW Plt Count Lymph % (Auto) [place] % (Auto) Eos % (Auto) Lymph # [place] # Eos # Seg Neutrophils % Seg Neuts % (Manual) Lymphocytes % (Manual) Monocytes % (Manual) Eosinophils % (Manual) Nucleated RBC % Seg Neutrophils # Seg Neutrophils # Man Lymphocytes # (Manual) Monocytes # (Manual) Eosinophils # (Manual) PT INR POC ABG pH POC ABG pCO2 POC ABG pO2 Sodium Potassium 3.4 L 2.9 L* Chloride Carbon Dioxide BUN 40 H Creatinine Glucose 107 H POC Glucose 128 H Lactic Acid Calcium 7.9 L Phosphorus Magnesium AST ALT Alkaline Phosphatase Troponin T C-Reactive Protein Total Protein Albumin LDL Cholesterol Direct HDL Cholesterol Urine Creatinine Hepatitis C Antibody Crossmatch Crossmatch [facility] 12/23/17 12/23/17 12/23/17 05:55 05:55 11:59 WBC 3.8 L RBC 3.10 L Hgb 7.7 L Hct 25.5 L MCV 82 L MCH 25 L MCHC 30 L RDW 17.9 H Plt Count Lymph % (Auto) [place] % (Auto) Eos % (Auto) Lymph # [place] # Eos # Seg Neutrophils % Seg Neuts % (Manual) Lymphocytes % (Manual) Monocytes % (Manual) Eosinophils % (Manual) Nucleated RBC % Seg Neutrophils # Seg Neutrophils # Man Lymphocytes # (Manual) Monocytes # (Manual) Eosinophils # (Manual) PT INR POC ABG pH POC ABG pCO2 POC ABG pO2 Sodium Potassium Chloride Carbon Dioxide BUN Creatinine Glucose POC Glucose 115 H Lactic Acid Calcium Phosphorus Magnesium 1.60 L AST ALT Alkaline Phosphatase Troponin T C-Reactive Protein Total Protein Albumin LDL Cholesterol Direct HDL Cholesterol Urine Creatinine Hepatitis C Antibody Crossmatch Crossmatch [facility] 12/23/17 12/24/17 12/24/17 22:48 00:29 03:17 WBC RBC Hgb Hct MCV MCH MCHC RDW Plt Count Lymph % (Auto) [place] % (Auto) Eos % (Auto) Lymph # [place] # Eos # Seg Neutrophils % Seg Neuts % (Manual) Lymphocytes % (Manual) Monocytes % (Manual) Eosinophils % (Manual) Nucleated RBC % Seg Neutrophils # Seg Neutrophils # Man Lymphocytes # (Manual) Monocytes # (Manual) Eosinophils # (Manual) PT INR POC ABG pH POC ABG pCO2 POC ABG pO2 Sodium 146 H Potassium 2.9 L* 3.4 L Chloride Carbon Dioxide BUN 36 H Creatinine 0.7 L Glucose POC Glucose 111 H Lactic Acid Calcium 7.5 L Phosphorus Magnesium 1.60 L AST 76 H ALT 59 H Alkaline Phosphatase 294 H Troponin T C-Reactive Protein Total Protein 5.8 L Albumin 2.2 L LDL Cholesterol Direct HDL Cholesterol Urine Creatinine Hepatitis C Antibody Crossmatch Crossmatch [facility] 12/24/17 12/24/17 12/24/17 03:17 05:14 17:05 WBC RBC 3.03 L Hgb 7.6 L Hct 23.7 L MCV 78 L MCH 25 L MCHC RDW 17.8 H Plt Count Lymph % (Auto) [place] % (Auto) Eos % (Auto) Lymph # [place] # Eos # Seg Neutrophils % Seg Neuts % (Manual) Lymphocytes % (Manual) Monocytes % (Manual) Eosinophils % (Manual) Nucleated RBC % Seg Neutrophils # Seg Neutrophils # Man Lymphocytes # (Manual) Monocytes # (Manual) Eosinophils # (Manual) PT INR POC ABG pH POC ABG pCO2 POC ABG pO2 Sodium Potassium Chloride Carbon Dioxide BUN Creatinine Glucose POC Glucose 127 H 132 H Lactic Acid Calcium Phosphorus Magnesium AST ALT Alkaline Phosphatase Troponin T C-Reactive Protein Total Protein Albumin LDL Cholesterol Direct HDL Cholesterol Urine Creatinine Hepatitis C Antibody Crossmatch Crossmatch [facility] 12/25/17 12/25/17 12/25/17 00:03 04:34 06:25 WBC RBC Hgb Hct MCV MCH MCHC RDW Plt Count Lymph % (Auto) [place] % (Auto) Eos % (Auto) Lymph # [place] # Eos # Seg Neutrophils % Seg Neuts % (Manual) Lymphocytes % (Manual) Monocytes % (Manual) Eosinophils % (Manual) Nucleated RBC % Seg Neutrophils # Seg Neutrophils # Man Lymphocytes # (Manual) Monocytes # (Manual) Eosinophils # (Manual) PT INR POC ABG pH POC ABG pCO2 POC ABG pO2 Sodium Potassium Chloride Carbon Dioxide BUN 30 H Creatinine 0.6 L Glucose 114 H POC Glucose 128 H 136 H Lactic Acid Calcium 7.5 L Phosphorus Magnesium AST 84 H ALT 82 H Alkaline Phosphatase 322 H Troponin T C-Reactive Protein Total Protein 6.0 L Albumin 2.3 L LDL Cholesterol Direct HDL Cholesterol Urine Creatinine Hepatitis C Antibody Crossmatch Crossmatch [facility] 12/25/17 12/25/17 12/26/17 12:02 18:28 00:03 WBC RBC Hgb Hct MCV MCH MCHC RDW Plt Count Lymph % (Auto) [place] % (Auto) Eos % (Auto) Lymph # [place] # Eos # Seg Neutrophils % Seg Neuts % (Manual) Lymphocytes % (Manual) Monocytes % (Manual) Eosinophils % (Manual) Nucleated RBC % Seg Neutrophils # Seg Neutrophils # Man Lymphocytes # (Manual) Monocytes # (Manual) Eosinophils # (Manual) PT INR POC ABG pH POC ABG pCO2 POC ABG pO2 Sodium Potassium Chloride Carbon Dioxide BUN Creatinine Glucose POC Glucose 158 H 113 H 117 H Lactic Acid Calcium Phosphorus Magnesium AST ALT Alkaline Phosphatase Troponin T C-Reactive Protein Total Protein Albumin LDL Cholesterol Direct HDL Cholesterol Urine Creatinine Hepatitis C Antibody Crossmatch Crossmatch [facility] 12/26/17 12/26/17 12/26/17 04:26 06:35 08:47 WBC RBC Hgb Hct MCV MCH MCHC RDW Plt Count Lymph % (Auto) [place] % (Auto) Eos % (Auto) Lymph # [place] # Eos # Seg Neutrophils % Seg Neuts % (Manual) Lymphocytes % (Manual) Monocytes % (Manual) Eosinophils % (Manual) Nucleated RBC % Seg Neutrophils # Seg Neutrophils # Man Lymphocytes # (Manual) Monocytes # (Manual) Eosinophils # (Manual) PT INR POC ABG pH POC ABG pCO2 POC ABG pO2 Sodium Potassium 5.4 H D 3.3 L D Chloride Carbon Dioxide 21 L BUN 39 H Creatinine 0.7 L Glucose 121 H POC Glucose 122 H Lactic Acid Calcium 7.8 L Phosphorus Magnesium AST 144 H ALT 98 H Alkaline Phosphatase 330 H Troponin T C-Reactive Protein Total Protein 6.1 L Albumin 2.1 L LDL Cholesterol Direct HDL Cholesterol Urine Creatinine Hepatitis C Antibody Crossmatch Crossmatch [facility] 12/26/17 12/26/17 12/27/17 12:29 18:27 07:34 WBC RBC Hgb Hct MCV MCH MCHC RDW Plt Count Lymph % (Auto) [place] % (Auto) Eos % (Auto) Lymph # [place] # Eos # Seg Neutrophils % Seg Neuts % (Manual) Lymphocytes % (Manual) Monocytes % (Manual) Eosinophils % (Manual) Nucleated RBC % Seg Neutrophils # Seg Neutrophils # Man Lymphocytes # (Manual) Monocytes # (Manual) Eosinophils # (Manual) PT INR POC ABG pH POC ABG pCO2 POC ABG pO2 Sodium Potassium 3.1 L Chloride Carbon Dioxide BUN Creatinine 0.5 L Glucose POC Glucose 128 H 121 H Lactic Acid Calcium 7.7 L Phosphorus Magnesium AST 74 H ALT 80 H Alkaline Phosphatase 306 H Troponin T C-Reactive Protein Total Protein 6.1 L Albumin 2.1 L LDL Cholesterol Direct HDL Cholesterol Urine Creatinine Hepatitis C Antibody Crossmatch Crossmatch [facility] 12/27/17 12/28/17 12/28/17 07:34 04:59 04:59 WBC 11.1 H RBC 3.00 L Hgb 7.2 L Hct 23.6 L MCV 79 L MCH 24 L MCHC 31 L RDW 18.3 H Plt Count Lymph % (Auto) 10.0 L [place] % (Auto) 10.2 H Eos % (Auto) 6.7 H Lymph # 1.1 L [place] # 1.1 H Eos # 0.7 H Seg Neutrophils % 72.1 H Seg Neuts % (Manual) Lymphocytes % (Manual) Monocytes % (Manual) Eosinophils % (Manual) Nucleated RBC % Seg Neutrophils # 8.0 H Seg Neutrophils # Man Lymphocytes # (Manual) Monocytes # (Manual) Eosinophils # (Manual) PT INR POC ABG pH POC ABG pCO2 POC ABG pO2 Sodium Potassium Chloride Carbon Dioxide BUN Creatinine 0.4 L Glucose 102 H POC Glucose Lactic Acid Calcium 7.8 L Phosphorus Magnesium 1.30 L AST 58 H ALT 62 H Alkaline Phosphatase 274 H Troponin T C-Reactive Protein Total Protein 6.0 L Albumin 2.0 L LDL Cholesterol Direct HDL Cholesterol Urine Creatinine Hepatitis C Antibody Crossmatch Crossmatch [place] 12/28/17 12/29/17 12/29/17 18:06 04:02 04:02 WBC RBC Hgb Hct MCV MCH MCHC RDW Plt Count Lymph % (Auto) [place] % (Auto) Eos % (Auto) Lymph # [place] # Eos # Seg Neutrophils % Seg Neuts % (Manual) Lymphocytes % (Manual) Monocytes % (Manual) Eosinophils % (Manual) Nucleated RBC % Seg Neutrophils # Seg Neutrophils # Man Lymphocytes # (Manual) Monocytes # (Manual) Eosinophils # (Manual) PT INR POC ABG pH POC ABG pCO2 POC ABG pO2 Sodium Potassium Chloride Carbon Dioxide BUN Creatinine 0.5 L Glucose POC Glucose 107 H Lactic Acid Calcium 7.8 L Phosphorus Magnesium 1.40 L AST 50 H ALT Alkaline Phosphatase 311 H Troponin T C-Reactive Protein Total Protein 5.9 L Albumin 2.3 L LDL Cholesterol Direct HDL Cholesterol Urine Creatinine Hepatitis C Antibody Crossmatch Crossmatch [facility] 12/29/17 12/29/17 12/30/17 12:10 17:33 04:46 WBC RBC Hgb Hct MCV MCH MCHC RDW Plt Count Lymph % (Auto) [place] % (Auto) Eos % (Auto) Lymph # [place] # Eos # Seg Neutrophils % Seg Neuts % (Manual) Lymphocytes % (Manual) Monocytes % (Manual) Eosinophils % (Manual) Nucleated RBC % Seg Neutrophils # Seg Neutrophils # Man Lymphocytes # (Manual) Monocytes # (Manual) Eosinophils # (Manual) PT INR POC ABG pH POC ABG pCO2 POC ABG pO2 Sodium Potassium Chloride Carbon Dioxide BUN Creatinine 0.5 L Glucose POC Glucose 124 H 108 H Lactic Acid Calcium 8.2 L Phosphorus Magnesium AST ALT Alkaline Phosphatase 288 H Troponin T C-Reactive Protein Total Protein Albumin 2.4 L LDL Cholesterol Direct HDL Cholesterol Urine Creatinine Hepatitis C Antibody Crossmatch Crossmatch [place] 12/30/17 12/31/17 12/31/17 04:46 04:03 04:03 WBC RBC Hgb Hct MCV MCH MCHC RDW Plt Count Lymph % (Auto) [place] % (Auto) Eos % (Auto) Lymph # [place] # Eos # Seg Neutrophils % Seg Neuts % (Manual) Lymphocytes % (Manual) Monocytes % (Manual) Eosinophils % (Manual) Nucleated RBC % Seg Neutrophils # Seg Neutrophils # Man Lymphocytes # (Manual) Monocytes # (Manual) Eosinophils # (Manual) PT INR POC ABG pH POC ABG pCO2 POC ABG pO2 Sodium Potassium Chloride Carbon Dioxide BUN Creatinine 0.4 L Glucose 103 H POC Glucose Lactic Acid Calcium 8.1 L Phosphorus Magnesium 1.50 L 1.30 L AST ALT Alkaline Phosphatase Troponin T C-Reactive Protein Total Protein Albumin LDL Cholesterol Direct HDL Cholesterol Urine Creatinine Hepatitis C Antibody Crossmatch Crossmatch [place] 12/31/17 12/31/17 01/01/18 16:56 23:55 04:26 WBC RBC Hgb Hct MCV MCH MCHC RDW Plt Count Lymph % (Auto) [place] % (Auto) Eos % (Auto) Lymph # [place] # Eos # Seg Neutrophils % Seg Neuts % (Manual) Lymphocytes % (Manual) Monocytes % (Manual) Eosinophils % (Manual) Nucleated RBC % Seg Neutrophils # Seg Neutrophils # Man Lymphocytes # (Manual) Monocytes # (Manual) Eosinophils # (Manual) PT INR POC ABG pH POC ABG pCO2 POC ABG pO2 Sodium Potassium 3.5 L Chloride Carbon Dioxide BUN Creatinine 0.3 L Glucose 105 H POC Glucose 106 H 108 H Lactic Acid Calcium 7.9 L Phosphorus Magnesium AST ALT Alkaline Phosphatase Troponin T C-Reactive Protein Total Protein Albumin LDL Cholesterol Direct HDL Cholesterol Urine Creatinine Hepatitis C Antibody Crossmatch Crossmatch [facility] 01/01/18 01/01/18 04:26 05:26 WBC RBC 3.07 L Hgb 7.6 L Hct 24.1 L MCV 78 L MCH 25 L MCHC 31 L RDW 18.2 H Plt Count Lymph % (Auto) [place] % (Auto) Eos % (Auto) Lymph # [place] # Eos # Seg Neutrophils % Seg Neuts % (Manual) 72.0 H Lymphocytes % (Manual) 13.0 L Monocytes % (Manual) Eosinophils % (Manual) 7.0 H Nucleated RBC % 1.0 H Seg Neutrophils # Seg Neutrophils # Man Lymphocytes # (Manual) Monocytes # (Manual) Eosinophils # (Manual) 0.7 H PT INR POC ABG pH POC ABG pCO2 POC ABG pO2 Sodium Potassium Chloride Carbon Dioxide BUN Creatinine Glucose POC Glucose 107 H Lactic Acid Calcium Phosphorus Magnesium AST ALT Alkaline Phosphatase Troponin T C-Reactive Protein Total Protein Albumin LDL Cholesterol Direct HDL Cholesterol Urine Creatinine Hepatitis C Antibody Crossmatch Crossmatch [place]
[2018-01-01] MEDS: NACL 0.45% 1000 ML 1,000 ML IV SCH (18:39)
--- NOTE | 2018-01-01 19:09 | Progress Note ---
Assessment and Plan Assessment and plan: --Peritonitis: from dislodged peg tube Patient received complete course of antibiotics Multiple surgical procedures with intra-abdominal drainage placement IR and surgery evaluated the patient Continue current management, awaiting for wound healing Possible new peg placement when medically stable Continue to monitor output of the drains, will DC the drains when output clears --Acute hypoxic respiratory failure; requiring mechanical ventilation more than 96% Status post tracheostomy, continue trach care, nebulizers, oxygen --Aspiration pneumonia; received complete treatment, resolved --Acute kidney injury; secondary to ATN Requiring intermittent dialysis as needed --Chronic anemia; received total 3 units of PRBC, closely monitor H&H transfuse as needed --Hypernatremia/hypokalemia/hypomagnesemia; Closely monitor electrolytes and adjust as needed --History of carotid endarterectomy; supportive care --Metabolic encephalopathy; supportive care --DVT prophylaxis; SCDs --Full CODE STATUS Patient is critically ill, recommend hospice Consults and recommendations noted DC planning per case management LTAC declined admission KILEY is daughter, Eugenie [phone], History Interval history: Patient seen and examined medical treatments reviewed Clinically no change, sick looking No new events reported by the nursing Vital signs noted Hospitalist Physical - Constitutional Vitals: Temp Pulse Resp BP Pulse Ox 98.6 F 116 H 33 H 160/97 98 01/01/18 16:00 01/01/18 19:00 01/01/18 19:00 01/01/18 19:00 01/01/18 19:00 General appearance: Present: no acute distress, cachectic, disheveled - EENT Eyes: Present: PERRL - Neck Neck: Present: supple - Respiratory Respiratory effort: normal Respiratory: bilateral: diminished, rales, negative: rhonchi, wheezing - Cardiovascular Rhythm: regular Heart Sounds: Present: S1 & S2 - Extremities Extremities: no ischemia Extremity abnormal: edema - Abdominal General gastrointestinal: soft, non-tender, normal bowel sounds - Integumentary Integumentary: Present: clear, warm - Psychiatric Psychiatric: other (noncommunicative) - Neurologic Neurologic: other (noncommunicative) Results - Labs CBC & Chem 7: 01/01/18 04:26 01/01/18 04:26 Labs: Laboratory Last Values WBC 10.4 K/mm3 (4.5-11.0) 01/01/18 04:26 RBC 3.07 M/mm3 (3.65-5.03) L 01/01/18 04:26 Hgb 7.6 gm/dl (11.8-15.2) L 01/01/18 04:26 Hct 24.1 % (35.5-45.6) L 01/01/18 04:26 MCV 78 fl (84-94) L 01/01/18 04:26 MCH 25 pg (28-32) L 01/01/18 04:26 MCHC 31 % (32-34) L 01/01/18 04:26 RDW 18.2 % (13.2-15.2) H 01/01/18 04:26 Plt Count 225 K/mm3 (140-440) 01/01/18 04:26 Lymph % (Auto) 10.0 % (13.4-35.0) L 12/28/17 04:59 [place] % (Auto) 10.2 % (0.0-7.3) H 12/28/17 04:59 Eos % (Auto) 6.7 % (0.0-4.3) H 12/28/17 04:59 Baso % (Auto) 1.0 % (0.0-1.8) 12/28/17 04:59 Lymph # 1.1 K/mm3 (1.2-5.4) L 12/28/17 04:59 [place] # 1.1 K/mm3 (0.0-0.8) H 12/28/17 04:59 Eos # 0.7 K/mm3 (0.0-0.4) H 12/28/17 04:59 Baso # 0.1 K/mm3 (0.0-0.1) 12/28/17 04:59 Add Manual Diff Complete 01/01/18 04:26 Total Counted 100 01/01/18 04:26 Seg Neutrophils % 72.1 % (40.0-70.0) H 12/28/17 04:59 Seg Neuts % (Manual) 72.0 % (40.0-70.0) H 01/01/18 04:26 Band Neutrophils % 0 % 01/01/18 04:26 Lymphocytes % (Manual) 13.0 % (13.4-35.0) L 01/01/18 04:26 Reactive Lymphs % (Man) 0 % 01/01/18 04:26 Monocytes % (Manual) 7.0 % (0.0-7.3) 01/01/18 04:26 Eosinophils % (Manual) 7.0 % (0.0-4.3) H 01/01/18 04:26 Basophils % (Manual) 1.0 % (0.0-1.8) 01/01/18 04:26 Metamyelocytes % 0 % 01/01/18 04:26 Myelocytes % 0 % 01/01/18 04:26 Promyelocytes % 0 % 01/01/18 04:26 Blast Cells % 0 % 01/01/18 04:26 Nucleated RBC % 1.0 % (0.0-0.9) H 01/01/18 04:26 Seg Neutrophils # 8.0 K/mm3 (1.8-7.7) H 12/28/17 04:59 Seg Neutrophils # Man 7.5 K/mm3 (1.8-7.7) 01/01/18 04:26 Band Neutrophils # 0.0 K/mm3 01/01/18 04:26 Lymphocytes # (Manual) 1.4 K/mm3 (1.2-5.4) 01/01/18 04:26 Abs React Lymphs (Man) 0.0 K/mm3 01/01/18 04:26 Monocytes # (Manual) 0.7 K/mm3 (0.0-0.8) 01/01/18 04:26 Eosinophils # (Manual) 0.7 K/mm3 (0.0-0.4) H 01/01/18 04:26 Basophils # (Manual) 0.1 K/mm3 (0.0-0.1) 01/01/18 04:26 Metamyelocytes # 0.0 K/mm3 01/01/18 04:26 Myelocytes # 0.0 K/mm3 01/01/18 04:26 Promyelocytes # 0.0 K/mm3 01/01/18 04:26 Blast Cells # 0.0 K/mm3 01/01/18 04:26 WBC Morphology Not Reportable 01/01/18 04:26 Hypersegmented Neuts Not Reportable 01/01/18 04:26 Hyposegmented Neuts Not Reportable 01/01/18 04:26 Hypogranular Neuts Not Reportable 01/01/18 04:26 Smudge Cells Not Reportable 01/01/18 04:26 Toxic Granulation Not Reportable 01/01/18 04:26 Toxic Vacuolation Not Reportable 01/01/18 04:26 Dohle Bodies Not Reportable 01/01/18 04:26 Pelger-Huet Anomaly Not Reportable 01/01/18 04:26 Evangelina Rods Not Reportable 01/01/18 04:26 Platelet Estimate Consistent w auto 01/01/18 04:26 Clumped Platelets Not Reportable 01/01/18 04:26 Plt Clumps, EDTA Not Reportable 01/01/18 04:26 Large Platelets Not Reportable 01/01/18 04:26 Giant Platelets Not Reportable 01/01/18 04:26 Platelet Satelliting Not Reportable 01/01/18 04:26 Plt Morphology Comment Not Reportable 01/01/18 04:26 RBC Morphology Not Reportable 01/01/18 04:26 Dimorphic RBCs Not Reportable 01/01/18 04:26 Polychromasia Not Reportable 01/01/18 04:26 Hypochromasia Not Reportable 01/01/18 04:26 Poikilocytosis Not Reportable 01/01/18 04:26 Anisocytosis 1+ 01/01/18 04:26 Microcytosis Not Reportable 01/01/18 04:26 Macrocytosis Not Reportable 01/01/18 04:26 Spherocytes Not Reportable 01/01/18 04:26 Pappenheimer Bodies Not Reportable 01/01/18 04:26 Sickle Cells Not Reportable 01/01/18 04:26 Target Cells Not Reportable 01/01/18 04:26 Tear Drop Cells Not Reportable 01/01/18 04:26 Ovalocytes Not Reportable 01/01/18 04:26 Stomatocytes Few 01/01/18 04:26 Helmet Cells Not Reportable 01/01/18 04:26 [place] Bodies Not Reportable 01/01/18 04:26 [place] Rings Not Reportable 01/01/18 04:26 [place] Cells Not Reportable 01/01/18 04:26 Bite Cells Not Reportable 01/01/18 04:26 Crenated Cell Not Reportable 01/01/18 04:26 Elliptocytes Not Reportable 01/01/18 04:26 Acanthocytes (Spur) Not Reportable 01/01/18 04:26 Rouleaux Not Reportable 01/01/18 04:26 Hemoglobin C Crystals Not Reportable 01/01/18 04:26 Schistocytes Not Reportable 01/01/18 04:26 Malaria parasites Not Reportable 01/01/18 04:26 [place] Bodies Not Reportable 01/01/18 04:26 Hem Pathologist Commnt No 01/01/18 04:26 PT 15.4 Sec. (12.2-14.9) H 12/14/17 05:11 INR 1.17 (0.87-1.13) H 12/14/17 05:11 APTT 33.8 Sec. (24.2-36.6) 11/26/17 06:29 POC ABG pH 7.505 (7.35-7.45) H 11/23/17 04:56 POC ABG pCO2 26.3 (35-45) L 11/23/17 04:56 POC ABG pO2 100 (80-105) 11/23/17 04:56 POC ABG HCO3 20.8 11/23/17 04:56 POC ABG Total CO2 22 11/23/17 04:56 POC ABG O2 Sat 98 11/23/17 04:56 POC ABG Base Excess -2 11/23/17 04:56 FiO2 30 % 11/23/17 04:56 Sodium 139 mmol/L (137-145) 01/01/18 04:26 Potassium 3.5 mmol/L (3.6-5.0) L 01/01/18 04:26 Chloride 103.2 mmol/L (98-107) 01/01/18 04:26 Carbon Dioxide 23 mmol/L (22-30) 01/01/18 04:26 Anion Gap 16 mmol/L 01/01/18 04:26 BUN 10 mg/dL (9-20) 01/01/18 04:26 Creatinine 0.3 mg/dL (0.8-1.5) L 01/01/18 04:26 Estimated GFR > 60 ml/min 01/01/18 04:26 BUN/Creatinine Ratio 33 % 01/01/18 04:26 Glucose 105 mg/dL (75-100) H 01/01/18 04:26 POC Glucose 105 (70-105) 01/01/18 18:36 Lactic Acid 1.80 mmol/L (0.7-2.0) 11/27/17 04:06 Calcium 7.9 mg/dL (8.4-10.2) L 01/01/18 04:26 Phosphorus 3.00 mg/dL (2.5-4.5) 01/01/18 04:26 Magnesium 1.90 mg/dL (1.7-2.3) 01/01/18 04:26 Total Bilirubin 0.30 mg/dL (0.1-1.2) 12/30/17 04:46 AST 37 units/L (5-40) 12/30/17 04:46 ALT 48 units/L (7-56) 12/30/17 04:46 Alkaline Phosphatase 288 units/L (35-129) H 12/30/17 04:46 Total Creatine Kinase 84 units/L (55-170) 11/12/17 20:03 CK-MB (CK-2) < 1.0 ng/mL (0.0-4.0) 11/12/17 20:03 CK-MB (CK-2) Rel Index 1.1 (0-4) 11/12/17 20:03 Troponin T 0.098 ng/mL (0.00-0.029) H 11/12/17 Unknown C-Reactive Protein 25.70 mg/dL (0.00-1.30) H 11/11/17 23:20 NT-Pro-B Natriuret Pep 792.4 pg/mL (0-900) 11/11/17 23:20 Total Protein 6.6 g/dL (6.3-8.2) 12/30/17 04:46 Albumin 2.4 g/dL (3.9-5) L 12/30/17 04:46 Albumin/Globulin Ratio 0.6 % 12/30/17 04:46 Triglycerides 86 mg/dL (2-149) 11/11/17 23:20 Cholesterol 82 mg/dL (50-199) 11/11/17 23:20 LDL Cholesterol Direct 42 mg/dL (50-130) L 11/11/17 23:20 HDL Cholesterol 24 mg/dL (40-59) L 11/11/17 23:20 Cholesterol/HDL Ratio 3.41 % 11/11/17 23:20 Lipase 30 units/L (13-60) 11/11/17 23:20 Urine Color Nicole (Yellow) 11/11/17 23:09 Urine Turbidity Cloudy (Clear) 11/11/17 23:09 Urine pH 5.0 (5.0-7.0) 11/11/17 23:09 Ur Specific [place] 1.025 (1.003-1.030) 11/11/17 23:09 Urine Protein 100 mg/dl mg/dL (Negative) 11/11/17 23:09 Urine Glucose (UA) 50 mg/dL (Negative) 11/11/17 23:09 Urine Ketones Neg mg/dL (Negative) 11/11/17 23:09 Urine Blood Neg (Negative) 11/11/17 23:09 Urine Nitrite Neg (Negative) 11/11/17 23:09 Urine Bilirubin Neg (Negative) 11/11/17 23:09 Urine Urobilinogen 4.0 mg/dL (<2.0) 11/11/17 23:09 Ur Leukocyte Esterase Neg (Negative) 11/11/17 23:09 Urine WBC (Auto) 5.0 /HPF (0.0-6.0) 11/11/17 23:09 Urine RBC (Auto) 4.0 /HPF (0.0-6.0) 11/11/17 23:09 Urine Bacteria (Auto) 3+ /HPF (Negative) 11/11/17 23:09 Amorphous Crystals 3+ 11/11/17 23:09 Hyaline Casts 76 /LPF 11/11/17 23:09 Urine Mucus 2+ /HPF 11/11/17 23:09 Urine Total Volume 1350 12/22/17 10:50 Urine Creatinine 55.8 mg/dL (0.1-20.0) H 12/22/17 10:50 Ur Creatinine 24 Hour 0.8 (0.8-2.8) 12/22/17 10:50 Hepatitis A IgM Ab Non-reactive (NonReactive) 11/22/17 19:45 Hep Bs Antigen Non-reactive (Negative) 11/22/17 19:45 Hep B Core IgM Ab Non-reactive (NonReactive) 11/22/17 19:45 Hepatitis C Antibody Reactive (NonReactive) A 11/22/17 19:45 Blood Type A POSITIVE 12/16/17 13:01 Antibody Screen Positive 12/16/17 13:01 SANTANA Antibody Screen Cancelled 12/16/17 13:01 Antibody Identification Cold Antibody 12/16/17 13:01 Crossmatch See Detail 12/16/17 13:01 Crossmatch P[place] See Detail 12/16/17 13:01
[2018-01-02 04:45] LABS: Basophils # (Auto) 0.2 K/mm3 (0.0-0.1); Basophils % (Auto) 1.4 % (0.0-1.8); Eosinophils # (Auto) 0.5 K/mm3 (0.0-0.4); Eosinophils % (Auto) 4.1 % (0.0-4.3); Hematocrit 24.8 % (35.5-45.6); Hemoglobin 7.5 gm/dl (11.8-15.2); Lymphocytes # (Auto) 1.4 K/mm3 (1.2-5.4); Mean Corpuscular HGB Conc 31 % (32-34); Mean Corpuscular Volume 78 fl (84-94); Monocytes # (Auto) 1.2 K/mm3 (0.0-0.8); Monocytes % (Auto) 8.8 % (0.0-7.3); Platelet Count 229 K/mm3 (140-440); Red Blood Count 3.17 M/mm3 (3.65-5.03); Red Cell Distribution Width 18.2 % (13.2-15.2)
[2018-01-02 04:51] LABS: Mean Corpuscular Hemoglobin 24 pg (28-32)
[2018-01-02 05:21] LABS: BUN/Creatinine Ratio 28; Blood Urea Nitrogen 11 mg/dL (9-20); Calcium 8.1 mg/dL (8.4-10.2); Hemolysis Index 4
[2018-01-02] MEDS: NACL 0.45% 1000 ML 1,000 ML IV SCH ×2 (05:32→18:19)
[2018-01-02] MEDS: LOPRESSOR PO SCH ×2 (09:42→21:19)
[2018-01-02] MEDS: MAG-OX PO SCH ×2 (09:42→21:17)
[2018-01-02] MEDS: POTASSIUM CHLORIDE FEEDTUBE SCH ×2 (09:42→21:17)
[2018-01-02] MEDS: PREVACID SOLUTAB FEEDTUBE SCH ×2 (09:42→21:17)
--- NOTE | 2018-01-02 10:06 | Progress Note ---
Assessment and Plan 67 y/o male with acute on chronic respiratory failure, now trached, with peritonitis from dislodged peg tube s/p 2 IR drains now with NGT feedings. No new recs for today. Please see below. 1. Trach Care. Trach is permanent as patient cannot clear his secretions himself 2. Off IV abx therapy now 3. Electrolytes per primary and renal, now off HD 4. Will continue to follow along with you. Subjective Date of service: 01/02/18 Principal diagnosis: Acute hypoxic respiratory failure, s/p Trach Interval history: No acute events. Pulm status is unchanged Objective Vital Signs - 12hr 01/01/18 01/01/18 01/02/18 23:00 23:26 00:00 Temperature Pulse Rate 110 H 107 H 98 H Pulse Rate [ 112 H Left Radial] Pulse Rate [ 99 H Right From Monitor] Respiratory 29 H 21 28 H Rate Blood Pressure 155/92 155/92 143/80 O2 Sat by Pulse 99 99 95 Oximetry 01/02/18 01/02/18 01/02/18 00:42 01:00 02:00 Temperature 99.1 F Pulse Rate 97 H 99 H Pulse Rate [ Left Radial] Pulse Rate [ Right From Monitor] Respiratory 33 H 30 H Rate Blood Pressure 143/80 151/91 O2 Sat by Pulse 100 95 Oximetry 01/02/18 01/02/18 01/02/18 03:00 04:00 05:00 Temperature Pulse Rate 103 H 106 H 101 H Pulse Rate [ 112 H Left Radial] Pulse Rate [ 99 H Right From Monitor] Respiratory 29 H 32 H 31 H Rate Blood Pressure 149/86 153/85 152/84 O2 Sat by Pulse 95 97 98 Oximetry 01/02/18 01/02/18 01/02/18 06:00 07:00 08:00 Temperature 98.9 F Pulse Rate 103 H 105 H Pulse Rate [ Left Radial] Pulse Rate [ Right From Monitor] Respiratory 30 H 25 H Rate Blood Pressure 140/80 146/82 O2 Sat by Pulse 96 94 Oximetry 01/02/18 09:42 Temperature Pulse Rate 108 H Pulse Rate [ Left Radial] Pulse Rate [ Right From Monitor] Respiratory Rate Blood Pressure 146/84 O2 Sat by Pulse Oximetry Constitutional: no acute distress Eyes: non-icteric ENT: oropharynx moist Neck: supple (trach in position) Effort: normal Ascultation: Bilateral: clear, rales (few bilaterally), rhonchi (mild bilateral) , other (coarse BS bilaterally) Cardiovascular: regular rate and rhythm Gastrointestinal: normoactive bowel sounds, soft, non-tender, other (drains in place) Integumentary: normal Extremities: no cyanosis, pink and warm, edema (2+ bilateral LE edema) Neurologic: other (L hemiparesis,awake, response to my voice) Psychiatric: other (unable to assess) CBC and BMP: 01/02/18 03:45 01/02/18 03:45 ABG, PT/INR, D-dimer: ABG POC ABG pH 7.505 (7.35-7.45) H 11/23/17 04:56 POC ABG pCO2 26.3 (35-45) L 11/23/17 04:56 POC ABG pO2 100 (80-105) 11/23/17 04:56 POC ABG HCO3 20.8 11/23/17 04:56 POC ABG Total CO2 22 11/23/17 04:56 POC ABG O2 Sat 98 11/23/17 04:56 PT/INR, D-dimer PT 15.4 Sec. (12.2-14.9) H 12/14/17 05:11 INR 1.17 (0.87-1.13) H 12/14/17 05:11 Abnormal lab findings: Abnormal Labs 11/11/17 11/11/17 11/11/17 23:18 23:20 23:20 WBC RBC Hgb 10.4 L Hct 32.6 L D MCV MCH 27 L MCHC RDW 17.4 H Plt Count 105 L Lymph % (Auto) Arthur % (Auto) Eos % (Auto) Lymph # Arthur # Eos # Baso # Seg Neutrophils % Seg Neuts % (Manual) Lymphocytes % (Manual) 8.0 L Monocytes % (Manual) Eosinophils % (Manual) Nucleated RBC % 1.0 H Seg Neutrophils # Seg Neutrophils # Man Lymphocytes # (Manual) 0.7 L Monocytes # (Manual) Eosinophils # (Manual) PT INR POC ABG pH 7.550 H POC ABG pCO2 31.6 L POC ABG pO2 Sodium 146 H Potassium Chloride Carbon Dioxide BUN 26 H Creatinine 1.7 H D Glucose 133 H POC Glucose Lactic Acid Calcium Phosphorus Magnesium AST ALT Alkaline Phosphatase Troponin T 0.117 H* C-Reactive Protein Total Protein Albumin 2.5 L LDL Cholesterol Direct 42 L HDL Cholesterol 24 L Urine Creatinine Hepatitis C Antibody Crossmatch Crossmatch [place]armed 11/11/17 11/12/17 11/12/17 23:20 00:23 00:23 WBC RBC Hgb Hct MCV MCH MCHC RDW Plt Count Lymph % (Auto) Arthur % (Auto) Eos % (Auto) Lymph # Arthur # Eos # Baso # Seg Neutrophils % Seg Neuts % (Manual) Lymphocytes % (Manual) Monocytes % (Manual) Eosinophils % (Manual) Nucleated RBC % Seg Neutrophils # Seg Neutrophils # Man Lymphocytes # (Manual) Monocytes # (Manual) Eosinophils # (Manual) PT 16.7 H INR 1.28 H POC ABG pH POC ABG pCO2 POC ABG pO2 Sodium Potassium Chloride Carbon Dioxide BUN Creatinine Glucose POC Glucose Lactic Acid 3.20 H* Calcium Phosphorus Magnesium AST ALT Alkaline Phosphatase Troponin T C-Reactive Protein 25.70 H Total Protein Albumin LDL Cholesterol Direct HDL Cholesterol Urine Creatinine Hepatitis C Antibody Crossmatch Crossmatch P[place]armed 11/12/17 11/12/17 11/12/17 00:46 01:27 01:27 WBC RBC Hgb Hct MCV MCH MCHC RDW Plt Count Lymph % (Auto) Arthur % (Auto) Eos % (Auto) Lymph # Arthur # Eos # Baso # Seg Neutrophils % Seg Neuts % (Manual) Lymphocytes % (Manual) Monocytes % (Manual) Eosinophils % (Manual) Nucleated RBC % Seg Neutrophils # Seg Neutrophils # Man Lymphocytes # (Manual) Monocytes # (Manual) Eosinophils # (Manual) PT INR POC ABG pH 7.495 H POC ABG pCO2 32.0 L POC ABG pO2 64 L Sodium Potassium Chloride Carbon Dioxide BUN Creatinine Glucose POC Glucose Lactic Acid 3.70 H* Calcium Phosphorus Magnesium AST ALT Alkaline Phosphatase Troponin T 0.096 H C-Reactive Protein Total Protein Albumin LDL Cholesterol Direct HDL Cholesterol Urine Creatinine Hepatitis C Antibody Crossmatch Crossmatch [place]armed 11/12/17 11/12/17 11/12/17 03:21 04:50 06:27 WBC RBC Hgb Hct MCV MCH MCHC RDW Plt Count Lymph % (Auto) Arthur % (Auto) Eos % (Auto) Lymph # Arthur # Eos # Baso # Seg Neutrophils % Seg Neuts % (Manual) Lymphocytes % (Manual) Monocytes % (Manual) Eosinophils % (Manual) Nucleated RBC % Seg Neutrophils # Seg Neutrophils # Man Lymphocytes # (Manual) Monocytes # (Manual) Eosinophils # (Manual) PT INR POC ABG pH POC ABG pCO2 POC ABG pO2 109 H Sodium Potassium Chloride Carbon Dioxide BUN Creatinine Glucose POC Glucose Lactic Acid 3.80 H* 2.20 H* Calcium Phosphorus Magnesium AST ALT Alkaline Phosphatase Troponin T C-Reactive Protein Total Protein Albumin LDL Cholesterol Direct HDL Cholesterol Urine Creatinine Hepatitis C Antibody Crossmatch Crossmatch [place]armed 11/12/17 11/12/17 11/12/17 09:24 09:24 09:24 WBC RBC Hgb 10.4 L Hct 33.4 L MCV MCH MCHC RDW Plt Count Lymph % (Auto) Arthur % (Auto) Eos % (Auto) Lymph # Arthur # Eos # Baso # Seg Neutrophils % Seg Neuts % (Manual) Lymphocytes % (Manual) Monocytes % (Manual) Eosinophils % (Manual) Nucleated RBC % Seg Neutrophils # Seg Neutrophils # Man Lymphocytes # (Manual) Monocytes # (Manual) Eosinophils # (Manual) PT INR POC ABG pH POC ABG pCO2 POC ABG pO2 Sodium Potassium Chloride Carbon Dioxide BUN Creatinine Glucose POC Glucose Lactic Acid 2.90 H* Calcium Phosphorus Magnesium AST ALT Alkaline Phosphatase Troponin T 0.091 H C-Reactive Protein Total Protein Albumin LDL Cholesterol Direct HDL Cholesterol Urine Creatinine Hepatitis C Antibody Crossmatch Crossmatch [place]armed 11/12/17 11/12/17 11/12/17 12:56 20:03 Unknown WBC RBC Hgb Hct MCV MCH MCHC RDW Plt Count Lymph % (Auto) Arthur % (Auto) Eos % (Auto) Lymph # Arthur # Eos # Baso # Seg Neutrophils % Seg Neuts % (Manual) Lymphocytes % (Manual) Monocytes % (Manual) Eosinophils % (Manual) Nucleated RBC % Seg Neutrophils # Seg Neutrophils # Man Lymphocytes # (Manual) Monocytes # (Manual) Eosinophils # (Manual) PT INR POC ABG pH POC ABG pCO2 POC ABG pO2 Sodium Potassium Chloride Carbon Dioxide BUN Creatinine Glucose POC Glucose Lactic Acid 3.60 H* Calcium Phosphorus Magnesium AST ALT Alkaline Phosphatase Troponin T 0.102 H* 0.156 H* D C-Reactive Protein Total Protein Albumin LDL Cholesterol Direct HDL Cholesterol Urine Creatinine Hepatitis C Antibody Crossmatch Crossmatch [place] 11/12/17 11/13/17 11/13/17 Unknown 04:50 04:50 WBC 12.2 H RBC 3.51 L Hgb 9.3 L Hct 30.1 L MCV MCH 26 L MCHC 31 L RDW 18.0 H Plt Count 128 L Lymph % (Auto) 8.6 L Arthur % (Auto) 11.1 H Eos % (Auto) Lymph # 1.1 L Arthur # 1.4 H Eos # Baso # Seg Neutrophils % 80.1 H Seg Neuts % (Manual) Lymphocytes % (Manual) Monocytes % (Manual) Eosinophils % (Manual) Nucleated RBC % Seg Neutrophils # 9.8 H Seg Neutrophils # Man Lymphocytes # (Manual) Monocytes # (Manual) Eosinophils # (Manual) PT INR POC ABG pH POC ABG pCO2 POC ABG pO2 Sodium 149 H Potassium 5.1 H Chloride 114.4 H Carbon Dioxide 18 L BUN 52 H Creatinine 3.3 H D Glucose 129 H POC Glucose Lactic Acid Calcium 7.9 L Phosphorus Magnesium AST ALT Alkaline Phosphatase Troponin T 0.098 H C-Reactive Protein Total Protein Albumin LDL Cholesterol Direct HDL Cholesterol Urine Creatinine Hepatitis C Antibody Crossmatch Crossmatch [place]armed 11/13/17 11/13/17 11/14/17 04:51 09:34 04:21 WBC RBC Hgb Hct MCV MCH MCHC RDW Plt Count Lymph % (Auto) Arthur % (Auto) Eos % (Auto) Lymph # Arthur # Eos # Baso # Seg Neutrophils % Seg Neuts % (Manual) Lymphocytes % (Manual) Monocytes % (Manual) Eosinophils % (Manual) Nucleated RBC % Seg Neutrophils # Seg Neutrophils # Man Lymphocytes # (Manual) Monocytes # (Manual) Eosinophils # (Manual) PT INR POC ABG pH POC ABG pCO2 30.1 L 29.8 L POC ABG pO2 135 H Sodium Potassium Chloride Carbon Dioxide BUN Creatinine Glucose POC Glucose Lactic Acid 2.10 H* Calcium Phosphorus Magnesium AST ALT Alkaline Phosphatase Troponin T C-Reactive Protein Total Protein Albumin LDL Cholesterol Direct HDL Cholesterol Urine Creatinine Hepatitis C Antibody Crossmatch Crossmatch [place]armed 11/15/17 11/15/17 11/16/17 04:52 15:50 05:17 WBC RBC Hgb Hct MCV MCH MCHC RDW Plt Count Lymph % (Auto) Arthur % (Auto) Eos % (Auto) Lymph # Arthur # Eos # Baso # Seg Neutrophils % Seg Neuts % (Manual) Lymphocytes % (Manual) Monocytes % (Manual) Eosinophils % (Manual) Nucleated RBC % Seg Neutrophils # Seg Neutrophils # Man Lymphocytes # (Manual) Monocytes # (Manual) Eosinophils # (Manual) PT INR POC ABG pH POC ABG pCO2 29.5 L 31.5 L POC ABG pO2 115 H 122 H Sodium 154 H Potassium Chloride 117.9 H Carbon Dioxide 19 L BUN 87 H Creatinine 4.1 H Glucose POC Glucose Lactic Acid Calcium 8.1 L Phosphorus Magnesium AST ALT Alkaline Phosphatase Troponin T C-Reactive Protein Total Protein Albumin LDL Cholesterol Direct HDL Cholesterol Urine Creatinine Hepatitis C Antibody Crossmatch Crossmatch [place]armed 11/16/17 11/17/17 11/17/17 16:37 04:07 10:00 WBC 14.7 H RBC 3.23 L Hgb 8.3 L Hct 28.1 L MCV MCH 26 L MCHC 30 L RDW 18.8 H Plt Count Lymph % (Auto) Arthur % (Auto) Eos % (Auto) Lymph # Arthur # Eos # Baso # Seg Neutrophils % Seg Neuts % (Manual) 75 H Lymphocytes % (Manual) 8.0 L Monocytes % (Manual) Eosinophils % (Manual) Nucleated RBC % 1.0 H Seg Neutrophils # Seg Neutrophils # Man 11.0 H Lymphocytes # (Manual) Monocytes # (Manual) 0.9 H Eosinophils # (Manual) PT INR POC ABG pH POC ABG pCO2 POC ABG pO2 Sodium 153 H 155 H Potassium Chloride 117.3 H 119.4 H Carbon Dioxide 19 L 20 L BUN 90 H 89 H Creatinine 3.9 H 3.6 H Glucose 111 H 115 H POC Glucose Lactic Acid Calcium 8.1 L 8.0 L Phosphorus Magnesium AST ALT Alkaline Phosphatase Troponin T C-Reactive Protein Total Protein Albumin LDL Cholesterol Direct HDL Cholesterol Urine Creatinine Hepatitis C Antibody Crossmatch Crossmatch [place]armed 11/18/17 11/18/17 11/18/17 04:34 04:34 04:34 WBC 15.5 H RBC 3.13 L Hgb 8.1 L Hct 26.3 L MCV MCH 26 L MCHC 31 L RDW 18.6 H Plt Count Lymph % (Auto) Arthur % (Auto) Eos % (Auto) Lymph # Arthur # Eos # Baso # Seg Neutrophils % Seg Neuts % (Manual) 81.0 H Lymphocytes % (Manual) 7.0 L Monocytes % (Manual) Eosinophils % (Manual) Nucleated RBC % 1.0 H Seg Neutrophils # Seg Neutrophils # Man 12.6 H Lymphocytes # (Manual) 1.1 L Monocytes # (Manual) Eosinophils # (Manual) PT 16.7 H INR 1.30 H POC ABG pH POC ABG pCO2 POC ABG pO2 Sodium 155 H Potassium 3.2 L Chloride 121.0 H Carbon Dioxide 20 L BUN 74 H Creatinine 2.9 H Glucose 126 H POC Glucose Lactic Acid Calcium 7.9 L Phosphorus Magnesium AST ALT Alkaline Phosphatase Troponin T C-Reactive Protein Total Protein Albumin LDL Cholesterol Direct HDL Cholesterol Urine Creatinine Hepatitis C Antibody Crossmatch Crossmatch [place] 11/19/17 11/19/17 11/20/17 04:44 04:44 00:38 WBC 19.0 H 22.2 H RBC 3.20 L 3.17 L Hgb 8.4 L 7.9 L Hct 27.9 L 26.4 L MCV 83 L MCH 26 L 25 L MCHC 30 L 30 L RDW 19.1 H 18.9 H Plt Count Lymph % (Auto) Arthur % (Auto) Eos % (Auto) Lymph # Arthur # Eos # Baso # Seg Neutrophils % Seg Neuts % (Manual) 83.0 H Lymphocytes % (Manual) 3.0 L Monocytes % (Manual) 9.0 H Eosinophils % (Manual) Nucleated RBC % Seg Neutrophils # Seg Neutrophils # Man 18.4 H Lymphocytes # (Manual) 0.7 L Monocytes # (Manual) 2.0 H Eosinophils # (Manual) PT INR POC ABG pH POC ABG pCO2 POC ABG pO2 Sodium 152 H Potassium Chloride 117.1 H Carbon Dioxide 17 L BUN 66 H Creatinine 2.8 H Glucose 119 H POC Glucose Lactic Acid Calcium 7.8 L Phosphorus Magnesium 2.70 H AST ALT Alkaline Phosphatase Troponin T C-Reactive Protein Total Protein Albumin LDL Cholesterol Direct HDL Cholesterol Urine Creatinine Hepatitis C Antibody Crossmatch Crossmatch [place]armed 11/20/17 11/20/17 11/20/17 03:29 04:48 13:38 WBC RBC Hgb Hct MCV MCH MCHC RDW Plt Count Lymph % (Auto) Arthur % (Auto) Eos % (Auto) Lymph # Arthur # Eos # Baso # Seg Neutrophils % Seg Neuts % (Manual) Lymphocytes % (Manual) Monocytes % (Manual) Eosinophils % (Manual) Nucleated RBC % Seg Neutrophils # Seg Neutrophils # Man Lymphocytes # (Manual) Monocytes # (Manual) Eosinophils # (Manual) PT INR POC ABG pH POC ABG pCO2 29.4 L POC ABG pO2 Sodium 148 H Potassium 3.4 L Chloride 113.7 H Carbon Dioxide 18 L BUN 59 H Creatinine 2.7 H Glucose 113 H POC Glucose 128 H Lactic Acid Calcium 7.8 L Phosphorus Magnesium AST ALT Alkaline Phosphatase Troponin T C-Reactive Protein Total Protein Albumin LDL Cholesterol Direct HDL Cholesterol Urine Creatinine Hepatitis C Antibody Crossmatch Crossmatch [place]armed 11/20/17 11/20/17 11/21/17 17:38 23:40 00:13 WBC RBC Hgb 8.4 L Hct 28.0 L MCV MCH MCHC RDW Plt Count Lymph % (Auto) Arthur % (Auto) Eos % (Auto) Lymph # Arthur # Eos # Baso # Seg Neutrophils % Seg Neuts % (Manual) Lymphocytes % (Manual) Monocytes % (Manual) Eosinophils % (Manual) Nucleated RBC % Seg Neutrophils # Seg Neutrophils # Man Lymphocytes # (Manual) Monocytes # (Manual) Eosinophils # (Manual) PT INR POC ABG pH POC ABG pCO2 POC ABG pO2 Sodium Potassium Chloride Carbon Dioxide BUN Creatinine Glucose POC Glucose 115 H 145 H Lactic Acid Calcium Phosphorus Magnesium AST ALT Alkaline Phosphatase Troponin T C-Reactive Protein Total Protein Albumin LDL Cholesterol Direct HDL Cholesterol Urine Creatinine Hepatitis C Antibody Crossmatch Crossmatch [place]armed 11/21/17 11/21/17 11/21/17 04:30 04:30 04:58 WBC 21.0 H RBC Hgb 9.6 L Hct 32.7 L MCV MCH 25 L MCHC 29 L RDW 19.7 H Plt Count 746 H Lymph % (Auto) Arthur % (Auto) Eos % (Auto) Lymph # Arthur # Eos # Baso # Seg Neutrophils % Seg Neuts % (Manual) Lymphocytes % (Manual) Monocytes % (Manual) Eosinophils % (Manual) Nucleated RBC % Seg Neutrophils # Seg Neutrophils # Man Lymphocytes # (Manual) Monocytes # (Manual) Eosinophils # (Manual) PT INR POC ABG pH POC ABG pCO2 POC ABG pO2 Sodium Potassium Chloride 109.4 H Carbon Dioxide 14 L BUN 59 H Creatinine 3.0 H Glucose 137 H POC Glucose 132 H Lactic Acid Calcium 7.6 L Phosphorus Magnesium AST ALT Alkaline Phosphatase Troponin T C-Reactive Protein Total Protein Albumin LDL Cholesterol Direct HDL Cholesterol Urine Creatinine Hepatitis C Antibody Crossmatch Crossmatch [place]armed 11/21/17 11/21/17 11/21/17 06:30 13:43 14:17 WBC 38.2 H RBC Hgb 9.0 L Hct 32.3 L MCV MCH 25 L MCHC 28 L RDW 20.0 H Plt Count 766 H Lymph % (Auto) Arthur % (Auto) Eos % (Auto) Lymph # Arthur # Eos # Baso # Seg Neutrophils % Seg Neuts % (Manual) 85.0 H Lymphocytes % (Manual) 1.0 L Monocytes % (Manual) Eosinophils % (Manual) Nucleated RBC % 2.0 H Seg Neutrophils # Seg Neutrophils # Man 32.5 H Lymphocytes # (Manual) 0.4 L Monocytes # (Manual) 2.3 H Eosinophils # (Manual) PT INR POC ABG pH POC ABG pCO2 18.6 L POC ABG pO2 121 H Sodium 146 H Potassium Chloride 110.9 H Carbon Dioxide 11 L BUN 62 H Creatinine 4.0 H Glucose 64 L POC Glucose Lactic Acid Calcium 7.6 L Phosphorus Magnesium AST ALT Alkaline Phosphatase Troponin T C-Reactive Protein Total Protein Albumin LDL Cholesterol Direct HDL Cholesterol Urine Creatinine Hepatitis C Antibody Crossmatch Crossmatch [place]armed 11/21/17 11/21/17 11/22/17 14:17 19:09 00:05 WBC RBC Hgb Hct MCV MCH MCHC RDW Plt Count Lymph % (Auto) Arthur % (Auto) Eos % (Auto) Lymph # Arthur # Eos # Baso # Seg Neutrophils % Seg Neuts % (Manual) Lymphocytes % (Manual) Monocytes % (Manual) Eosinophils % (Manual) Nucleated RBC % Seg Neutrophils # Seg Neutrophils # Man Lymphocytes # (Manual) Monocytes # (Manual) Eosinophils # (Manual) PT INR POC ABG pH POC ABG pCO2 20.0 L POC ABG pO2 Sodium Potassium Chloride Carbon Dioxide BUN Creatinine Glucose POC Glucose 127 H Lactic Acid 7.70 H* Calcium Phosphorus Magnesium AST ALT Alkaline Phosphatase Troponin T C-Reactive Protein Total Protein Albumin LDL Cholesterol Direct HDL Cholesterol Urine Creatinine Hepatitis C Antibody Crossmatch Crossmatch [place] 11/22/17 11/22/17 11/22/17 03:53 06:00 07:25 WBC RBC Hgb Hct MCV MCH MCHC RDW Plt Count Lymph % (Auto) Arthur % (Auto) Eos % (Auto) Lymph # Arthur # Eos # Baso # Seg Neutrophils % Seg Neuts % (Manual) Lymphocytes % (Manual) Monocytes % (Manual) Eosinophils % (Manual) Nucleated RBC % Seg Neutrophils # Seg Neutrophils # Man Lymphocytes # (Manual) Monocytes # (Manual) Eosinophils # (Manual) PT INR POC ABG pH POC ABG pCO2 22.2 L POC ABG pO2 Sodium 147 H Potassium Chloride 111.9 H Carbon Dioxide 16 L BUN 72 H Creatinine 5.1 H Glucose 181 H POC Glucose 180 H Lactic Acid Calcium 7.1 L Phosphorus Magnesium AST ALT Alkaline Phosphatase Troponin T C-Reactive Protein Total Protein Albumin LDL Cholesterol Direct HDL Cholesterol Urine Creatinine Hepatitis C Antibody Crossmatch Crossmatch [place]armed 11/22/17 11/22/17 11/22/17 07:25 07:25 12:05 WBC 31.4 H RBC 3.22 L Hgb 8.0 L Hct 26.7 L MCV 83 L MCH 25 L MCHC 30 L RDW 19.4 H Plt Count 602 H Lymph % (Auto) Arthur % (Auto) Eos % (Auto) Lymph # Arthur # Eos # Baso # Seg Neutrophils % Seg Neuts % (Manual) Lymphocytes % (Manual) Monocytes % (Manual) Eosinophils % (Manual) Nucleated RBC % Seg Neutrophils # Seg Neutrophils # Man Lymphocytes # (Manual) Monocytes # (Manual) Eosinophils # (Manual) PT INR POC ABG pH POC ABG pCO2 POC ABG pO2 Sodium Potassium Chloride Carbon Dioxide BUN Creatinine Glucose POC Glucose 182 H Lactic Acid 5.00 H* Calcium Phosphorus Magnesium AST ALT Alkaline Phosphatase Troponin T C-Reactive Protein Total Protein Albumin LDL Cholesterol Direct HDL Cholesterol Urine Creatinine Hepatitis C Antibody Crossmatch Crossmatch [place]armed 11/22/17 11/23/17 11/23/17 19:45 01:28 04:56 WBC RBC Hgb Hct MCV MCH MCHC RDW Plt Count Lymph % (Auto) Arthur % (Auto) Eos % (Auto) Lymph # Arthur # Eos # Baso # Seg Neutrophils % Seg Neuts % (Manual) Lymphocytes % (Manual) Monocytes % (Manual) Eosinophils % (Manual) Nucleated RBC % Seg Neutrophils # Seg Neutrophils # Man Lymphocytes # (Manual) Monocytes # (Manual) Eosinophils # (Manual) PT INR POC ABG pH 7.505 H POC ABG pCO2 26.3 L POC ABG pO2 Sodium Potassium Chloride Carbon Dioxide BUN Creatinine Glucose POC Glucose 165 H Lactic Acid Calcium Phosphorus Magnesium AST ALT Alkaline Phosphatase Troponin T C-Reactive Protein Total Protein Albumin LDL Cholesterol Direct HDL Cholesterol Urine Creatinine Hepatitis C Antibody Reactive A Crossmatch Crossmatch [place]armed 11/23/17 11/23/17 11/23/17 07:05 12:32 17:53 WBC RBC Hgb Hct MCV MCH MCHC RDW Plt Count Lymph % (Auto) Arthur % (Auto) Eos % (Auto) Lymph # Arthur # Eos # Baso # Seg Neutrophils % Seg Neuts % (Manual) Lymphocytes % (Manual) Monocytes % (Manual) Eosinophils % (Manual) Nucleated RBC % Seg Neutrophils # Seg Neutrophils # Man Lymphocytes # (Manual) Monocytes # (Manual) Eosinophils # (Manual) PT INR POC ABG pH POC ABG pCO2 POC ABG pO2 Sodium Potassium Chloride Carbon Dioxide 18 L BUN 61 H Creatinine 4.2 H Glucose 153 H POC Glucose 138 H 173 H Lactic Acid Calcium 7.5 L Phosphorus Magnesium AST ALT Alkaline Phosphatase Troponin T C-Reactive Protein Total Protein Albumin LDL Cholesterol Direct HDL Cholesterol Urine Creatinine Hepatitis C Antibody Crossmatch Crossmatch [place] 11/23/17 11/24/17 11/24/17 23:41 05:42 05:42 WBC 21.5 H RBC 2.48 L Hgb 6.2 L Hct 20.3 L D MCV 82 L MCH 25 L MCHC 31 L RDW 18.9 H Plt Count Lymph % (Auto) Arthur % (Auto) Eos % (Auto) Lymph # Arthur # Eos # Baso # Seg Neutrophils % Seg Neuts % (Manual) 94.0 H Lymphocytes % (Manual) 3.0 L Monocytes % (Manual) Eosinophils % (Manual) Nucleated RBC % Seg Neutrophils # Seg Neutrophils # Man 20.2 H Lymphocytes # (Manual) 0.6 L Monocytes # (Manual) Eosinophils # (Manual) PT INR POC ABG pH POC ABG pCO2 POC ABG pO2 Sodium 149 H Potassium 2.8 L* D Chloride 113.9 H Carbon Dioxide 19 L BUN 31 H Creatinine 2.3 H Glucose 103 H POC Glucose 133 H Lactic Acid Calcium 5.3 L* D Phosphorus Magnesium 1.30 L AST ALT Alkaline Phosphatase Troponin T C-Reactive Protein Total Protein Albumin LDL Cholesterol Direct HDL Cholesterol Urine Creatinine Hepatitis C Antibody Crossmatch Crossmatch [place] 11/24/17 11/24/17 11/24/17 05:42 08:27 08:27 WBC RBC Hgb Hct MCV MCH MCHC RDW Plt Count Lymph % (Auto) Arthur % (Auto) Eos % (Auto) Lymph # Arthur # Eos # Baso # Seg Neutrophils % Seg Neuts % (Manual) Lymphocytes % (Manual) Monocytes % (Manual) Eosinophils % (Manual) Nucleated RBC % Seg Neutrophils # Seg Neutrophils # Man Lymphocytes # (Manual) Monocytes # (Manual) Eosinophils # (Manual) PT INR POC ABG pH POC ABG pCO2 POC ABG pO2 Sodium Potassium Chloride Carbon Dioxide BUN Creatinine Glucose POC Glucose Lactic Acid 5.40 H* 5.20 H* Calcium Phosphorus Magnesium AST ALT Alkaline Phosphatase Troponin T C-Reactive Protein Total Protein Albumin LDL Cholesterol Direct HDL Cholesterol Urine Creatinine Hepatitis C Antibody Crossmatch See Detail Crossmatch P[place]armed 11/24/17 11/24/17 11/24/17 12:13 17:22 21:53 WBC 23.0 H RBC 3.32 L Hgb 8.8 L Hct 27.1 L D MCV 82 L MCH 26 L MCHC RDW 17.3 H Plt Count Lymph % (Auto) Arthur % (Auto) Eos % (Auto) Lymph # Arthur # Eos # Baso # Seg Neutrophils % Seg Neuts % (Manual) Lymphocytes % (Manual) Monocytes % (Manual) Eosinophils % (Manual) Nucleated RBC % Seg Neutrophils # Seg Neutrophils # Man Lymphocytes # (Manual) Monocytes # (Manual) Eosinophils # (Manual) PT INR POC ABG pH POC ABG pCO2 POC ABG pO2 Sodium Potassium Chloride Carbon Dioxide BUN Creatinine Glucose POC Glucose 138 H 180 H Lactic Acid Calcium Phosphorus Magnesium AST ALT Alkaline Phosphatase Troponin T C-Reactive Protein Total Protein Albumin LDL Cholesterol Direct HDL Cholesterol Urine Creatinine Hepatitis C Antibody Crossmatch Crossmatch [place]armed 11/24/17 11/24/17 11/25/17 21:53 23:28 04:19 WBC RBC Hgb Hct MCV MCH MCHC RDW Plt Count Lymph % (Auto) Arthur % (Auto) Eos % (Auto) Lymph # Arthur # Eos # Baso # Seg Neutrophils % Seg Neuts % (Manual) Lymphocytes % (Manual) Monocytes % (Manual) Eosinophils % (Manual) Nucleated RBC % Seg Neutrophils # Seg Neutrophils # Man Lymphocytes # (Manual) Monocytes # (Manual) Eosinophils # (Manual) PT INR POC ABG pH POC ABG pCO2 POC ABG pO2 Sodium Potassium Chloride 96.3 L Carbon Dioxide BUN 28 H 31 H Creatinine 2.3 H 2.6 H Glucose 125 H 101 H POC Glucose 111 H Lactic Acid Calcium 7.5 L D 7.4 L Phosphorus Magnesium AST 170 H ALT 179 H Alkaline Phosphatase 175 H Troponin T C-Reactive Protein Total Protein 5.5 L Albumin 1.8 L LDL Cholesterol Direct HDL Cholesterol Urine Creatinine Hepatitis C Antibody Crossmatch Crossmatch [place] 11/25/17 11/25/17 11/26/17 04:19 04:19 06:29 WBC 22.5 H RBC 3.48 L Hgb 9.1 L Hct 28.3 L MCV 81 L MCH 26 L MCHC RDW 17.4 H Plt Count Lymph % (Auto) Arthur % (Auto) Eos % (Auto) Lymph # Arthur # Eos # Baso # Seg Neutrophils % Seg Neuts % (Manual) Lymphocytes % (Manual) Monocytes % (Manual) Eosinophils % (Manual) Nucleated RBC % Seg Neutrophils # Seg Neutrophils # Man Lymphocytes # (Manual) Monocytes # (Manual) Eosinophils # (Manual) PT 23.6 H INR 1.96 H POC ABG pH POC ABG pCO2 POC ABG pO2 Sodium Potassium Chloride Carbon Dioxide BUN 31 H Creatinine 2.6 H Glucose 101 H POC Glucose Lactic Acid Calcium 7.5 L Phosphorus Magnesium AST ALT Alkaline Phosphatase Troponin T C-Reactive Protein Total Protein Albumin LDL Cholesterol Direct HDL Cholesterol Urine Creatinine Hepatitis C Antibody Crossmatch Crossmatch [place]armed 11/26/17 11/27/17 11/27/17 06:34 04:06 04:06 WBC 11.3 H RBC 3.13 L Hgb 8.4 L Hct 25.8 L MCV 82 L MCH 27 L MCHC RDW 17.7 H Plt Count Lymph % (Auto) 7.4 L Arthur % (Auto) Eos % (Auto) Lymph # 0.8 L Arthur # Eos # Baso # Seg Neutrophils % 83.7 H Seg Neuts % (Manual) Lymphocytes % (Manual) Monocytes % (Manual) Eosinophils % (Manual) Nucleated RBC % Seg Neutrophils # 9.5 H Seg Neutrophils # Man Lymphocytes # (Manual) Monocytes # (Manual) Eosinophils # (Manual) PT INR POC ABG pH POC ABG pCO2 POC ABG pO2 Sodium Potassium Chloride 97.9 L Carbon Dioxide BUN 43 H 29 H Creatinine 3.5 H 2.9 H Glucose POC Glucose Lactic Acid Calcium 7.5 L 8.1 L Phosphorus Magnesium AST ALT Alkaline Phosphatase Troponin T C-Reactive Protein Total Protein Albumin LDL Cholesterol Direct HDL Cholesterol Urine Creatinine Hepatitis C Antibody Crossmatch Crossmatch [facility] 11/27/17 11/28/17 11/28/17 18:11 00:16 03:50 WBC RBC Hgb Hct MCV MCH MCHC RDW Plt Count Lymph % (Auto) Arthur % (Auto) Eos % (Auto) Lymph # Arthur # Eos # Baso # Seg Neutrophils % Seg Neuts % (Manual) Lymphocytes % (Manual) Monocytes % (Manual) Eosinophils % (Manual) Nucleated RBC % Seg Neutrophils # Seg Neutrophils # Man Lymphocytes # (Manual) Monocytes # (Manual) Eosinophils # (Manual) PT INR POC ABG pH POC ABG pCO2 POC ABG pO2 Sodium Potassium Chloride Carbon Dioxide BUN 39 H Creatinine 4.1 H Glucose 108 H POC Glucose 110 H 124 H Lactic Acid Calcium 7.9 L Phosphorus Magnesium AST ALT Alkaline Phosphatase Troponin T C-Reactive Protein Total Protein Albumin LDL Cholesterol Direct HDL Cholesterol Urine Creatinine Hepatitis C Antibody Crossmatch Crossmatch [facility] 11/28/17 11/28/17 11/28/17 05:03 11:36 17:42 WBC RBC Hgb Hct MCV MCH MCHC RDW Plt Count Lymph % (Auto) Arthur % (Auto) Eos % (Auto) Lymph # Arthur # Eos # Baso # Seg Neutrophils % Seg Neuts % (Manual) Lymphocytes % (Manual) Monocytes % (Manual) Eosinophils % (Manual) Nucleated RBC % Seg Neutrophils # Seg Neutrophils # Man Lymphocytes # (Manual) Monocytes # (Manual) Eosinophils # (Manual) PT INR POC ABG pH POC ABG pCO2 POC ABG pO2 Sodium Potassium Chloride Carbon Dioxide BUN Creatinine Glucose POC Glucose 134 H 114 H 119 H Lactic Acid Calcium Phosphorus Magnesium AST ALT Alkaline Phosphatase Troponin T C-Reactive Protein Total Protein Albumin LDL Cholesterol Direct HDL Cholesterol Urine Creatinine Hepatitis C Antibody Crossmatch Crossmatch [facility] 11/29/17 11/29/17 11/29/17 00:22 05:25 05:25 WBC 12.3 H RBC 3.34 L Hgb 8.6 L Hct 27.3 L MCV 82 L MCH 26 L MCHC RDW 18.5 H Plt Count Lymph % (Auto) 3.7 L Arthur % (Auto) 7.7 H Eos % (Auto) Lymph # 0.5 L Arthur # 1.0 H Eos # Baso # Seg Neutrophils % 86.5 H Seg Neuts % (Manual) Lymphocytes % (Manual) Monocytes % (Manual) Eosinophils % (Manual) Nucleated RBC % Seg Neutrophils # 10.7 H Seg Neutrophils # Man Lymphocytes # (Manual) Monocytes # (Manual) Eosinophils # (Manual) PT INR POC ABG pH POC ABG pCO2 POC ABG pO2 Sodium Potassium Chloride Carbon Dioxide BUN 29 H Creatinine 3.5 H Glucose 109 H POC Glucose 137 H Lactic Acid Calcium 7.8 L Phosphorus Magnesium AST ALT Alkaline Phosphatase Troponin T C-Reactive Protein Total Protein Albumin LDL Cholesterol Direct HDL Cholesterol Urine Creatinine Hepatitis C Antibody Crossmatch Crossmatch [facility] 11/29/17 11/30/17 11/30/17 05:26 00:26 04:17 WBC RBC Hgb Hct MCV MCH MCHC RDW Plt Count Lymph % (Auto) Arthur % (Auto) Eos % (Auto) Lymph # Arthur # Eos # Baso # Seg Neutrophils % Seg Neuts % (Manual) Lymphocytes % (Manual) Monocytes % (Manual) Eosinophils % (Manual) Nucleated RBC % Seg Neutrophils # Seg Neutrophils # Man Lymphocytes # (Manual) Monocytes # (Manual) Eosinophils # (Manual) PT INR POC ABG pH POC ABG pCO2 POC ABG pO2 Sodium Potassium Chloride Carbon Dioxide BUN 38 H Creatinine 4.3 H Glucose 109 H POC Glucose 129 H 152 H Lactic Acid Calcium 7.8 L Phosphorus Magnesium AST ALT Alkaline Phosphatase Troponin T C-Reactive Protein Total Protein Albumin LDL Cholesterol Direct HDL Cholesterol Urine Creatinine Hepatitis C Antibody Crossmatch Crossmatch [facility] 11/30/17 11/30/17 11/30/17 12:17 16:23 23:35 WBC RBC Hgb Hct MCV MCH MCHC RDW Plt Count Lymph % (Auto) Arthur % (Auto) Eos % (Auto) Lymph # Arthur # Eos # Baso # Seg Neutrophils % Seg Neuts % (Manual) Lymphocytes % (Manual) Monocytes % (Manual) Eosinophils % (Manual) Nucleated RBC % Seg Neutrophils # Seg Neutrophils # Man Lymphocytes # (Manual) Monocytes # (Manual) Eosinophils # (Manual) PT INR POC ABG pH POC ABG pCO2 POC ABG pO2 Sodium Potassium Chloride Carbon Dioxide BUN Creatinine Glucose POC Glucose 170 H 114 H 122 H Lactic Acid Calcium Phosphorus Magnesium AST ALT Alkaline Phosphatase Troponin T C-Reactive Protein Total Protein Albumin LDL Cholesterol Direct HDL Cholesterol Urine Creatinine Hepatitis C Antibody Crossmatch Crossmatch [facility] 12/01/17 12/01/17 12/01/17 04:09 04:09 12:17 WBC 14.1 H RBC 3.32 L Hgb 8.6 L Hct 27.0 L MCV 81 L MCH 26 L MCHC RDW 18.7 H Plt Count Lymph % (Auto) 5.5 L Arthur % (Auto) 9.7 H Eos % (Auto) Lymph # 0.8 L Arthur # 1.4 H Eos # Baso # Seg Neutrophils % 82.9 H Seg Neuts % (Manual) Lymphocytes % (Manual) Monocytes % (Manual) Eosinophils % (Manual) Nucleated RBC % Seg Neutrophils # 11.7 H Seg Neutrophils # Man Lymphocytes # (Manual) Monocytes # (Manual) Eosinophils # (Manual) PT INR POC ABG pH POC ABG pCO2 POC ABG pO2 Sodium Potassium 3.4 L Chloride Carbon Dioxide BUN 21 H Creatinine 3.0 H Glucose 108 H POC Glucose 126 H Lactic Acid Calcium 8.0 L Phosphorus Magnesium AST ALT Alkaline Phosphatase Troponin T C-Reactive Protein Total Protein Albumin LDL Cholesterol Direct HDL Cholesterol Urine Creatinine Hepatitis C Antibody Crossmatch Crossmatch [facility] 12/02/17 12/03/17 12/03/17 23:46 02:52 05:54 WBC 17.2 H RBC 3.21 L Hgb 8.5 L Hct 25.8 L MCV 80 L MCH 26 L MCHC RDW 18.4 H Plt Count 128 L Lymph % (Auto) Arthur % (Auto) Eos % (Auto) Lymph # Arthur # Eos # Baso # Seg Neutrophils % Seg Neuts % (Manual) Lymphocytes % (Manual) Monocytes % (Manual) Eosinophils % (Manual) Nucleated RBC % Seg Neutrophils # Seg Neutrophils # Man Lymphocytes # (Manual) Monocytes # (Manual) Eosinophils # (Manual) PT INR POC ABG pH POC ABG pCO2 POC ABG pO2 Sodium Potassium Chloride Carbon Dioxide BUN Creatinine Glucose POC Glucose 125 H 107 H Lactic Acid Calcium Phosphorus Magnesium AST ALT Alkaline Phosphatase Troponin T C-Reactive Protein Total Protein Albumin LDL Cholesterol Direct HDL Cholesterol Urine Creatinine Hepatitis C Antibody Crossmatch Crossmatch [facility] 12/03/17 12/03/17 12/04/17 12:05 Unknown 12:26 WBC RBC Hgb Hct MCV MCH MCHC RDW Plt Count Lymph % (Auto) Arthur % (Auto) Eos % (Auto) Lymph # Arthur # Eos # Baso # Seg Neutrophils % Seg Neuts % (Manual) Lymphocytes % (Manual) Monocytes % (Manual) Eosinophils % (Manual) Nucleated RBC % Seg Neutrophils # Seg Neutrophils # Man Lymphocytes # (Manual) Monocytes # (Manual) Eosinophils # (Manual) PT INR POC ABG pH POC ABG pCO2 POC ABG pO2 Sodium Potassium Chloride Carbon Dioxide BUN 21 H Creatinine 2.8 H Glucose 113 H POC Glucose 106 H 119 H Lactic Acid Calcium Phosphorus Magnesium AST ALT Alkaline Phosphatase Troponin T C-Reactive Protein Total Protein Albumin LDL Cholesterol Direct HDL Cholesterol Urine Creatinine Hepatitis C Antibody Crossmatch Crossmatch [facility] 12/04/17 12/05/17 12/05/17 17:57 00:52 04:05 WBC RBC 2.96 L Hgb 7.7 L Hct 24.2 L MCV 82 L MCH 26 L MCHC RDW 18.8 H Plt Count 105 L Lymph % (Auto) 10.6 L Arthur % (Auto) 12.1 H Eos % (Auto) 5.2 H Lymph # 1.1 L Arthur # 1.3 H Eos # 0.5 H Baso # Seg Neutrophils % 71.3 H Seg Neuts % (Manual) Lymphocytes % (Manual) Monocytes % (Manual) Eosinophils % (Manual) Nucleated RBC % Seg Neutrophils # Seg Neutrophils # Man Lymphocytes # (Manual) Monocytes # (Manual) Eosinophils # (Manual) PT INR POC ABG pH POC ABG pCO2 POC ABG pO2 Sodium Potassium Chloride Carbon Dioxide BUN Creatinine Glucose POC Glucose 140 H 117 H Lactic Acid Calcium Phosphorus Magnesium AST ALT Alkaline Phosphatase Troponin T C-Reactive Protein Total Protein Albumin LDL Cholesterol Direct HDL Cholesterol Urine Creatinine Hepatitis C Antibody Crossmatch Crossmatch [facility] 12/05/17 12/05/17 12/06/17 04:05 22:50 08:18 WBC RBC 2.80 L Hgb 7.4 L Hct 23.0 L MCV 82 L MCH 27 L MCHC RDW 19.5 H Plt Count 125 L Lymph % (Auto) Arthur % (Auto) Eos % (Auto) Lymph # Arthur # Eos # Baso # Seg Neutrophils % Seg Neuts % (Manual) Lymphocytes % (Manual) Monocytes % (Manual) Eosinophils % (Manual) Nucleated RBC % Seg Neutrophils # Seg Neutrophils # Man Lymphocytes # (Manual) Monocytes # (Manual) Eosinophils # (Manual) PT INR POC ABG pH POC ABG pCO2 POC ABG pO2 Sodium Potassium Chloride 107.4 H Carbon Dioxide BUN Creatinine 2.5 H Glucose POC Glucose 112 H Lactic Acid Calcium 8.3 L Phosphorus Magnesium AST ALT Alkaline Phosphatase Troponin T C-Reactive Protein Total Protein Albumin LDL Cholesterol Direct HDL Cholesterol Urine Creatinine Hepatitis C Antibody Crossmatch Crossmatch [facility] 12/06/17 12/06/17 12/06/17 08:18 12:01 23:58 WBC RBC Hgb Hct MCV MCH MCHC RDW Plt Count Lymph % (Auto) Arthur % (Auto) Eos % (Auto) Lymph # Arthur # Eos # Baso # Seg Neutrophils % Seg Neuts % (Manual) Lymphocytes % (Manual) Monocytes % (Manual) Eosinophils % (Manual) Nucleated RBC % Seg Neutrophils # Seg Neutrophils # Man Lymphocytes # (Manual) Monocytes # (Manual) Eosinophils # (Manual) PT INR POC ABG pH POC ABG pCO2 POC ABG pO2 Sodium Potassium Chloride 108.4 H Carbon Dioxide BUN 28 H Creatinine 3.7 H Glucose 103 H POC Glucose 106 H 108 H Lactic Acid Calcium 8.0 L Phosphorus Magnesium AST ALT Alkaline Phosphatase Troponin T C-Reactive Protein Total Protein Albumin LDL Cholesterol Direct HDL Cholesterol Urine Creatinine Hepatitis C Antibody Crossmatch Crossmatch [facility] 12/07/17 12/07/17 12/07/17 05:47 05:47 18:03 WBC RBC 2.79 L Hgb 7.3 L Hct 22.8 L MCV 82 L MCH 26 L MCHC RDW 19.1 H Plt Count 101 L Lymph % (Auto) Arthur % (Auto) Eos % (Auto) Lymph # Arthur # Eos # Baso # Seg Neutrophils % Seg Neuts % (Manual) 72.0 H Lymphocytes % (Manual) 13.0 L Monocytes % (Manual) Eosinophils % (Manual) 9.0 H Nucleated RBC % Seg Neutrophils # Seg Neutrophils # Man Lymphocytes # (Manual) 1.1 L Monocytes # (Manual) Eosinophils # (Manual) 0.8 H PT INR POC ABG pH POC ABG pCO2 POC ABG pO2 Sodium 146 H Potassium Chloride 109.8 H Carbon Dioxide BUN 36 H Creatinine 4.0 H Glucose POC Glucose 143 H Lactic Acid Calcium 8.0 L Phosphorus Magnesium AST ALT Alkaline Phosphatase Troponin T C-Reactive Protein Total Protein Albumin LDL Cholesterol Direct HDL Cholesterol Urine Creatinine Hepatitis C Antibody Crossmatch Crossmatch [facility] 12/07/17 12/08/17 12/08/17 23:33 05:10 05:10 WBC RBC 2.91 L Hgb 7.5 L Hct 24.4 L MCV MCH 26 L MCHC 31 L RDW 19.7 H Plt Count 109 L Lymph % (Auto) Arthur % (Auto) Eos % (Auto) Lymph # Arthur # Eos # Baso # Seg Neutrophils % Seg Neuts % (Manual) Lymphocytes % (Manual) 11.0 L Monocytes % (Manual) Eosinophils % (Manual) 12.0 H Nucleated RBC % Seg Neutrophils # Seg Neutrophils # Man Lymphocytes # (Manual) 0.7 L Monocytes # (Manual) Eosinophils # (Manual) 0.7 H PT INR POC ABG pH POC ABG pCO2 POC ABG pO2 Sodium 147 H Potassium Chloride 110.4 H Carbon Dioxide BUN Creatinine 2.8 H Glucose POC Glucose 107 H Lactic Acid Calcium 7.8 L Phosphorus Magnesium AST ALT Alkaline Phosphatase Troponin T C-Reactive Protein Total Protein Albumin LDL Cholesterol Direct HDL Cholesterol Urine Creatinine Hepatitis C Antibody Crossmatch Crossmatch [facility] 12/09/17 12/09/17 12/09/17 04:18 04:18 12:16 WBC RBC Hgb 7.2 L Hct 23.2 L MCV MCH MCHC RDW Plt Count Lymph % (Auto) Arthur % (Auto) Eos % (Auto) Lymph # Arthur # Eos # Baso # Seg Neutrophils % Seg Neuts % (Manual) Lymphocytes % (Manual) Monocytes % (Manual) Eosinophils % (Manual) Nucleated RBC % Seg Neutrophils # Seg Neutrophils # Man Lymphocytes # (Manual) Monocytes # (Manual) Eosinophils # (Manual) PT INR POC ABG pH POC ABG pCO2 POC ABG pO2 Sodium 150 H Potassium Chloride 114.5 H Carbon Dioxide BUN 25 H Creatinine 3.3 H Glucose POC Glucose 142 H Lactic Acid Calcium 7.7 L Phosphorus Magnesium AST ALT Alkaline Phosphatase Troponin T C-Reactive Protein Total Protein Albumin LDL Cholesterol Direct HDL Cholesterol Urine Creatinine Hepatitis C Antibody Crossmatch Crossmatch [facility] 12/10/17 12/10/17 12/11/17 05:14 05:14 12:05 WBC RBC 2.81 L Hgb 7.4 L Hct 23.9 L MCV MCH 26 L MCHC 31 L RDW 19.1 H Plt Count 128 L Lymph % (Auto) Arthur % (Auto) Eos % (Auto) Lymph # Arthur # Eos # Baso # Seg Neutrophils % Seg Neuts % (Manual) 78.0 H Lymphocytes % (Manual) 8.0 L Monocytes % (Manual) Eosinophils % (Manual) 5.0 H Nucleated RBC % Seg Neutrophils # Seg Neutrophils # Man Lymphocytes # (Manual) 0.6 L Monocytes # (Manual) Eosinophils # (Manual) PT INR POC ABG pH POC ABG pCO2 POC ABG pO2 Sodium Potassium Chloride Carbon Dioxide BUN Creatinine 2.2 H Glucose POC Glucose 127 H Lactic Acid Calcium 7.8 L Phosphorus Magnesium AST ALT Alkaline Phosphatase Troponin T C-Reactive Protein Total Protein Albumin LDL Cholesterol Direct HDL Cholesterol Urine Creatinine Hepatitis C Antibody Crossmatch Crossmatch [facility] 12/11/17 12/11/17 12/11/17 15:26 18:36 23:40 WBC RBC Hgb Hct MCV MCH MCHC RDW Plt Count Lymph % (Auto) Arthur % (Auto) Eos % (Auto) Lymph # Arthur # Eos # Baso # Seg Neutrophils % Seg Neuts % (Manual) Lymphocytes % (Manual) Monocytes % (Manual) Eosinophils % (Manual) Nucleated RBC % Seg Neutrophils # Seg Neutrophils # Man Lymphocytes # (Manual) Monocytes # (Manual) Eosinophils # (Manual) PT INR POC ABG pH POC ABG pCO2 POC ABG pO2 Sodium Potassium 3.3 L Chloride Carbon Dioxide BUN Creatinine 1.6 H Glucose POC Glucose 106 H 110 H Lactic Acid Calcium 7.6 L Phosphorus Magnesium AST ALT Alkaline Phosphatase Troponin T C-Reactive Protein Total Protein Albumin LDL Cholesterol Direct HDL Cholesterol Urine Creatinine Hepatitis C Antibody Crossmatch Crossmatch [facility] 12/12/17 12/12/17 12/12/17 05:10 05:41 05:41 WBC RBC 3.17 L Hgb 8.1 L Hct 25.7 L MCV 81 L MCH 25 L MCHC 31 L RDW 19.2 H Plt Count Lymph % (Auto) Arthur % (Auto) Eos % (Auto) Lymph # Arthur # Eos # Baso # Seg Neutrophils % Seg Neuts % (Manual) 74.0 H Lymphocytes % (Manual) 6.0 L Monocytes % (Manual) Eosinophils % (Manual) 9.0 H Nucleated RBC % Seg Neutrophils # Seg Neutrophils # Man Lymphocytes # (Manual) 0.6 L Monocytes # (Manual) Eosinophils # (Manual) 0.9 H PT INR POC ABG pH POC ABG pCO2 POC ABG pO2 Sodium Potassium 3.5 L Chloride Carbon Dioxide BUN Creatinine 2.3 H Glucose 113 H POC Glucose 112 H Lactic Acid Calcium 7.5 L Phosphorus Magnesium AST ALT Alkaline Phosphatase Troponin T C-Reactive Protein Total Protein Albumin LDL Cholesterol Direct HDL Cholesterol Urine Creatinine Hepatitis C Antibody Crossmatch Crossmatch [facility] 12/13/17 12/13/17 12/13/17 06:14 12:00 17:37 WBC RBC Hgb Hct MCV MCH MCHC RDW Plt Count Lymph % (Auto) Arthur % (Auto) Eos % (Auto) Lymph # Arthur # Eos # Baso # Seg Neutrophils % Seg Neuts % (Manual) Lymphocytes % (Manual) Monocytes % (Manual) Eosinophils % (Manual) Nucleated RBC % Seg Neutrophils # Seg Neutrophils # Man Lymphocytes # (Manual) Monocytes # (Manual) Eosinophils # (Manual) PT INR POC ABG pH POC ABG pCO2 POC ABG pO2 Sodium Potassium Chloride Carbon Dioxide BUN Creatinine Glucose POC Glucose 130 H 133 H 136 H Lactic Acid Calcium Phosphorus Magnesium AST ALT Alkaline Phosphatase Troponin T C-Reactive Protein Total Protein Albumin LDL Cholesterol Direct HDL Cholesterol Urine Creatinine Hepatitis C Antibody Crossmatch Crossmatch [facility] 12/13/17 12/14/17 12/14/17 23:39 05:11 05:11 WBC RBC Hgb Hct MCV MCH MCHC RDW Plt Count Lymph % (Auto) Arthur % (Auto) Eos % (Auto) Lymph # Arthur # Eos # Baso # Seg Neutrophils % Seg Neuts % (Manual) Lymphocytes % (Manual) Monocytes % (Manual) Eosinophils % (Manual) Nucleated RBC % Seg Neutrophils # Seg Neutrophils # Man Lymphocytes # (Manual) Monocytes # (Manual) Eosinophils # (Manual) PT 15.4 H INR 1.17 H POC ABG pH POC ABG pCO2 POC ABG pO2 Sodium Potassium Chloride Carbon Dioxide 21 L BUN 26 H Creatinine 2.9 H Glucose POC Glucose 108 H Lactic Acid Calcium 7.2 L Phosphorus Magnesium AST ALT Alkaline Phosphatase Troponin T C-Reactive Protein Total Protein Albumin LDL Cholesterol Direct HDL Cholesterol Urine Creatinine Hepatitis C Antibody Crossmatch Crossmatch [facility] 12/14/17 12/14/17 12/14/17 12:00 16:01 18:24 WBC 12.9 H RBC 3.25 L Hgb 8.2 L Hct 26.2 L MCV 81 L MCH 25 L MCHC 31 L RDW 19.2 H Plt Count Lymph % (Auto) Arthur % (Auto) Eos % (Auto) Lymph # Arthur # Eos # Baso # Seg Neutrophils % Seg Neuts % (Manual) Lymphocytes % (Manual) Monocytes % (Manual) Eosinophils % (Manual) Nucleated RBC % Seg Neutrophils # Seg Neutrophils # Man Lymphocytes # (Manual) Monocytes # (Manual) Eosinophils # (Manual) PT INR POC ABG pH POC ABG pCO2 POC ABG pO2 Sodium Potassium Chloride Carbon Dioxide BUN Creatinine Glucose POC Glucose 138 H 120 H Lactic Acid Calcium Phosphorus Magnesium AST ALT Alkaline Phosphatase Troponin T C-Reactive Protein Total Protein Albumin LDL Cholesterol Direct HDL Cholesterol Urine Creatinine Hepatitis C Antibody Crossmatch Crossmatch [facility] 12/14/17 12/14/17 12/15/17 23:29 Unknown 05:57 WBC 12.5 H RBC 2.48 L Hgb 6.0 L Hct 24.4 L MCV 79 L MCH 24 L MCHC 30 L RDW 18.5 H Plt Count 131 L Lymph % (Auto) 7.0 L Arthur % (Auto) 8.9 H Eos % (Auto) 8.3 H Lymph # 0.9 L Arthur # 1.1 H Eos # 1.0 H Baso # Seg Neutrophils % 75.2 H Seg Neuts % (Manual) Lymphocytes % (Manual) Monocytes % (Manual) Eosinophils % (Manual) Nucleated RBC % Seg Neutrophils # 9.4 H Seg Neutrophils # Man Lymphocytes # (Manual) Monocytes # (Manual) Eosinophils # (Manual) PT INR POC ABG pH POC ABG pCO2 POC ABG pO2 Sodium Potassium Chloride Carbon Dioxide BUN Creatinine Glucose POC Glucose 110 H 113 H Lactic Acid Calcium Phosphorus Magnesium AST ALT Alkaline Phosphatase Troponin T C-Reactive Protein Total Protein Albumin LDL Cholesterol Direct HDL Cholesterol Urine Creatinine Hepatitis C Antibody Crossmatch Crossmatch [facility] 12/15/17 12/15/17 12/15/17 11:50 13:37 17:58 WBC RBC Hgb 7.3 L Hct 23.3 L MCV MCH MCHC RDW Plt Count Lymph % (Auto) Arthur % (Auto) Eos % (Auto) Lymph # Arthur # Eos # Baso # Seg Neutrophils % Seg Neuts % (Manual) Lymphocytes % (Manual) Monocytes % (Manual) Eosinophils % (Manual) Nucleated RBC % Seg Neutrophils # Seg Neutrophils # Man Lymphocytes # (Manual) Monocytes # (Manual) Eosinophils # (Manual) PT INR POC ABG pH POC ABG pCO2 POC ABG pO2 Sodium Potassium Chloride Carbon Dioxide BUN Creatinine Glucose POC Glucose 106 H 110 H Lactic Acid Calcium Phosphorus Magnesium AST ALT Alkaline Phosphatase Troponin T C-Reactive Protein Total Protein Albumin LDL Cholesterol Direct HDL Cholesterol Urine Creatinine Hepatitis C Antibody Crossmatch Crossmatch [facility] 12/15/17 12/16/17 12/16/17 23:30 04:55 05:14 WBC 13.2 H RBC 2.79 L Hgb 6.9 L Hct 22.2 L MCV 80 L MCH 25 L MCHC 31 L RDW 18.8 H Plt Count Lymph % (Auto) 7.3 L Arthur % (Auto) 11.0 H Eos % (Auto) 8.2 H Lymph # 1.0 L Arthur # 1.4 H Eos # 1.1 H Baso # Seg Neutrophils % 72.9 H Seg Neuts % (Manual) Lymphocytes % (Manual) Monocytes % (Manual) Eosinophils % (Manual) Nucleated RBC % Seg Neutrophils # 9.6 H Seg Neutrophils # Man Lymphocytes # (Manual) Monocytes # (Manual) Eosinophils # (Manual) PT INR POC ABG pH POC ABG pCO2 POC ABG pO2 Sodium 131 L D Potassium 2.8 L* D Chloride 93.2 L Carbon Dioxide BUN 24 H Creatinine 2.0 H Glucose POC Glucose 111 H Lactic Acid Calcium 7.7 L Phosphorus Magnesium AST ALT Alkaline Phosphatase Troponin T C-Reactive Protein Total Protein Albumin LDL Cholesterol Direct HDL Cholesterol Urine Creatinine Hepatitis C Antibody Crossmatch Crossmatch [facility] 12/16/17 12/16/17 12/16/17 13:01 17:32 23:39 WBC RBC Hgb Hct MCV MCH MCHC RDW Plt Count Lymph % (Auto) Arthur % (Auto) Eos % (Auto) Lymph # Arthur # Eos # Baso # Seg Neutrophils % Seg Neuts % (Manual) Lymphocytes % (Manual) Monocytes % (Manual) Eosinophils % (Manual) Nucleated RBC % Seg Neutrophils # Seg Neutrophils # Man Lymphocytes # (Manual) Monocytes # (Manual) Eosinophils # (Manual) PT INR POC ABG pH POC ABG pCO2 POC ABG pO2 Sodium Potassium Chloride Carbon Dioxide BUN Creatinine Glucose POC Glucose 121 H 107 H Lactic Acid Calcium Phosphorus Magnesium AST ALT Alkaline Phosphatase Troponin T C-Reactive Protein Total Protein Albumin LDL Cholesterol Direct HDL Cholesterol Urine Creatinine Hepatitis C Antibody Crossmatch Crossmatch [facility] See Detail 12/17/17 12/17/17 12/17/17 05:08 05:08 12:03 WBC 12.9 H RBC 2.88 L Hgb 7.2 L Hct 22.6 L MCV 78 L MCH 25 L MCHC RDW 18.3 H Plt Count Lymph % (Auto) 8.0 L Arthur % (Auto) 8.6 H Eos % (Auto) Lymph # 1.0 L Arthur # 1.1 H Eos # Baso # Seg Neutrophils % 79.3 H Seg Neuts % (Manual) Lymphocytes % (Manual) Monocytes % (Manual) Eosinophils % (Manual) Nucleated RBC % Seg Neutrophils # 10.2 H Seg Neutrophils # Man Lymphocytes # (Manual) Monocytes # (Manual) Eosinophils # (Manual) PT INR POC ABG pH POC ABG pCO2 POC ABG pO2 Sodium Potassium 3.4 L D Chloride Carbon Dioxide BUN Creatinine Glucose 104 H POC Glucose 109 H Lactic Acid Calcium 7.6 L Phosphorus Magnesium 1.30 L AST ALT Alkaline Phosphatase 177 H Troponin T C-Reactive Protein Total Protein Albumin 2.0 L LDL Cholesterol Direct HDL Cholesterol Urine Creatinine Hepatitis C Antibody Crossmatch Crossmatch [facility] 12/17/17 12/18/17 12/18/17 23:40 00:50 00:50 WBC 22.6 H RBC 2.76 L Hgb 6.7 L Hct 21.6 L MCV 78 L MCH 24 L MCHC 31 L RDW 18.4 H Plt Count Lymph % (Auto) Arthur % (Auto) Eos % (Auto) Lymph # Arthur # Eos # Baso # Seg Neutrophils % Seg Neuts % (Manual) Lymphocytes % (Manual) Monocytes % (Manual) Eosinophils % (Manual) Nucleated RBC % Seg Neutrophils # Seg Neutrophils # Man Lymphocytes # (Manual) Monocytes # (Manual) Eosinophils # (Manual) PT INR POC ABG pH POC ABG pCO2 POC ABG pO2 Sodium Potassium Chloride Carbon Dioxide BUN 22 H Creatinine 1.6 H Glucose 113 H POC Glucose 120 H Lactic Acid Calcium 7.8 L Phosphorus Magnesium 1.50 L AST ALT Alkaline Phosphatase Troponin T C-Reactive Protein Total Protein Albumin LDL Cholesterol Direct HDL Cholesterol Urine Creatinine Hepatitis C Antibody Crossmatch Crossmatch [facility] 12/18/17 12/18/17 12/18/17 05:34 12:00 18:07 WBC RBC Hgb Hct MCV MCH MCHC RDW Plt Count Lymph % (Auto) Arthur % (Auto) Eos % (Auto) Lymph # Arthur # Eos # Baso # Seg Neutrophils % Seg Neuts % (Manual) Lymphocytes % (Manual) Monocytes % (Manual) Eosinophils % (Manual) Nucleated RBC % Seg Neutrophils # Seg Neutrophils # Man Lymphocytes # (Manual) Monocytes # (Manual) Eosinophils # (Manual) PT INR POC ABG pH POC ABG pCO2 POC ABG pO2 Sodium Potassium Chloride Carbon Dioxide BUN Creatinine Glucose POC Glucose 132 H 136 H 122 H Lactic Acid Calcium Phosphorus Magnesium AST ALT Alkaline Phosphatase Troponin T C-Reactive Protein Total Protein Albumin LDL Cholesterol Direct HDL Cholesterol Urine Creatinine Hepatitis C Antibody Crossmatch Crossmatch [facility] 12/19/17 12/19/17 12/19/17 00:24 00:24 05:17 WBC 15.4 H RBC 2.41 L Hgb 6.1 L Hct 19.0 L* MCV 79 L MCH 25 L MCHC RDW 18.5 H Plt Count Lymph % (Auto) Arthur % (Auto) Eos % (Auto) Lymph # Arthur # Eos # Baso # Seg Neutrophils % Seg Neuts % (Manual) Lymphocytes % (Manual) Monocytes % (Manual) Eosinophils % (Manual) Nucleated RBC % Seg Neutrophils # Seg Neutrophils # Man Lymphocytes # (Manual) Monocytes # (Manual) Eosinophils # (Manual) PT INR POC ABG pH POC ABG pCO2 POC ABG pO2 Sodium Potassium 3.2 L Chloride Carbon Dioxide BUN Creatinine Glucose 117 H POC Glucose 132 H Lactic Acid Calcium 8.2 L Phosphorus Magnesium 1.50 L AST ALT Alkaline Phosphatase Troponin T C-Reactive Protein Total Protein Albumin LDL Cholesterol Direct HDL Cholesterol Urine Creatinine Hepatitis C Antibody Crossmatch Crossmatch [facility] 12/19/17 12/19/17 12/19/17 09:00 09:00 18:01 WBC 12.4 H RBC 2.86 L Hgb 7.2 L Hct 22.6 L MCV 79 L MCH 25 L MCHC RDW 17.2 H Plt Count Lymph % (Auto) 6.8 L Arthur % (Auto) 12.6 H Eos % (Auto) Lymph # 0.8 L Arthur # 1.6 H Eos # Baso # Seg Neutrophils % 80.1 H Seg Neuts % (Manual) Lymphocytes % (Manual) Monocytes % (Manual) Eosinophils % (Manual) Nucleated RBC % Seg Neutrophils # 10.0 H Seg Neutrophils # Man Lymphocytes # (Manual) Monocytes # (Manual) Eosinophils # (Manual) PT INR POC ABG pH POC ABG pCO2 POC ABG pO2 Sodium Potassium 3.1 L Chloride Carbon Dioxide BUN 22 H Creatinine Glucose 113 H POC Glucose 117 H Lactic Acid Calcium 8.3 L Phosphorus Magnesium AST 54 H ALT Alkaline Phosphatase 204 H Troponin T C-Reactive Protein Total Protein 5.8 L Albumin 2.0 L LDL Cholesterol Direct HDL Cholesterol Urine Creatinine Hepatitis C Antibody Crossmatch Crossmatch [facility] 12/19/17 12/20/17 12/20/17 23:49 05:53 19:00 WBC RBC 3.03 L Hgb 7.7 L Hct 23.7 L MCV 78 L MCH 25 L MCHC RDW 17.2 H Plt Count Lymph % (Auto) Arthur % (Auto) Eos % (Auto) Lymph # Arthur # Eos # Baso # Seg Neutrophils % Seg Neuts % (Manual) 74.0 H Lymphocytes % (Manual) 6.0 L Monocytes % (Manual) 17.0 H Eosinophils % (Manual) Nucleated RBC % Seg Neutrophils # Seg Neutrophils # Man Lymphocytes # (Manual) 0.5 L Monocytes # (Manual) 1.5 H Eosinophils # (Manual) PT INR POC ABG pH POC ABG pCO2 POC ABG pO2 Sodium Potassium Chloride Carbon Dioxide BUN Creatinine Glucose POC Glucose 125 H 124 H Lactic Acid Calcium Phosphorus Magnesium AST ALT Alkaline Phosphatase Troponin T C-Reactive Protein Total Protein Albumin LDL Cholesterol Direct HDL Cholesterol Urine Creatinine Hepatitis C Antibody Crossmatch Crossmatch [place] 12/20/17 12/21/17 12/22/17 19:00 23:54 05:07 WBC RBC Hgb Hct MCV MCH MCHC RDW Plt Count Lymph % (Auto) Arthur % (Auto) Eos % (Auto) Lymph # Arthur # Eos # Baso # Seg Neutrophils % Seg Neuts % (Manual) Lymphocytes % (Manual) Monocytes % (Manual) Eosinophils % (Manual) Nucleated RBC % Seg Neutrophils # Seg Neutrophils # Man Lymphocytes # (Manual) Monocytes # (Manual) Eosinophils # (Manual) PT INR POC ABG pH POC ABG pCO2 POC ABG pO2 Sodium Potassium 3.3 L 2.9 L* Chloride Carbon Dioxide BUN 37 H 43 H Creatinine Glucose 114 H POC Glucose 109 H Lactic Acid Calcium 8.3 L 7.8 L Phosphorus 1.60 L Magnesium 1.50 L AST ALT Alkaline Phosphatase Troponin T C-Reactive Protein Total Protein Albumin LDL Cholesterol Direct HDL Cholesterol Urine Creatinine Hepatitis C Antibody Crossmatch Crossmatch [facility] 12/22/17 12/22/17 12/22/17 05:07 05:07 06:02 WBC 4.1 L RBC 3.09 L Hgb 7.7 L Hct 24.3 L MCV 79 L MCH 25 L MCHC RDW 17.8 H Plt Count Lymph % (Auto) Arthur % (Auto) Eos % (Auto) Lymph # Arthur # Eos # Baso # Seg Neutrophils % Seg Neuts % (Manual) Lymphocytes % (Manual) Monocytes % (Manual) Eosinophils % (Manual) Nucleated RBC % Seg Neutrophils # Seg Neutrophils # Man Lymphocytes # (Manual) Monocytes # (Manual) Eosinophils # (Manual) PT INR POC ABG pH POC ABG pCO2 POC ABG pO2 Sodium Potassium Chloride Carbon Dioxide BUN Creatinine Glucose POC Glucose 107 H Lactic Acid Calcium Phosphorus Magnesium 1.60 L AST ALT Alkaline Phosphatase Troponin T C-Reactive Protein Total Protein Albumin LDL Cholesterol Direct HDL Cholesterol Urine Creatinine Hepatitis C Antibody Crossmatch Crossmatch [place] 12/22/17 12/22/17 12/22/17 10:50 12:02 17:32 WBC RBC Hgb Hct MCV MCH MCHC RDW Plt Count Lymph % (Auto) Arthur % (Auto) Eos % (Auto) Lymph # Arthur # Eos # Baso # Seg Neutrophils % Seg Neuts % (Manual) Lymphocytes % (Manual) Monocytes % (Manual) Eosinophils % (Manual) Nucleated RBC % Seg Neutrophils # Seg Neutrophils # Man Lymphocytes # (Manual) Monocytes # (Manual) Eosinophils # (Manual) PT INR POC ABG pH POC ABG pCO2 POC ABG pO2 Sodium Potassium Chloride Carbon Dioxide BUN Creatinine Glucose POC Glucose 129 H 111 H Lactic Acid Calcium Phosphorus Magnesium AST ALT Alkaline Phosphatase Troponin T C-Reactive Protein Total Protein Albumin LDL Cholesterol Direct HDL Cholesterol Urine Creatinine 55.8 H Hepatitis C Antibody Crossmatch Crossmatch [place] 12/22/17 12/22/17 12/23/17 19:03 23:57 05:55 WBC RBC Hgb Hct MCV MCH MCHC RDW Plt Count Lymph % (Auto) Arthur % (Auto) Eos % (Auto) Lymph # Arthur # Eos # Baso # Seg Neutrophils % Seg Neuts % (Manual) Lymphocytes % (Manual) Monocytes % (Manual) Eosinophils % (Manual) Nucleated RBC % Seg Neutrophils # Seg Neutrophils # Man Lymphocytes # (Manual) Monocytes # (Manual) Eosinophils # (Manual) PT INR POC ABG pH POC ABG pCO2 POC ABG pO2 Sodium Potassium 3.4 L 2.9 L* Chloride Carbon Dioxide BUN 40 H Creatinine Glucose 107 H POC Glucose 128 H Lactic Acid Calcium 7.9 L Phosphorus Magnesium AST ALT Alkaline Phosphatase Troponin T C-Reactive Protein Total Protein Albumin LDL Cholesterol Direct HDL Cholesterol Urine Creatinine Hepatitis C Antibody Crossmatch Crossmatch [place] 12/23/17 12/23/17 12/23/17 05:55 05:55 11:59 WBC 3.8 L RBC 3.10 L Hgb 7.7 L Hct 25.5 L MCV 82 L MCH 25 L MCHC 30 L RDW 17.9 H Plt Count Lymph % (Auto) Arthur % (Auto) Eos % (Auto) Lymph # Arthur # Eos # Baso # Seg Neutrophils % Seg Neuts % (Manual) Lymphocytes % (Manual) Monocytes % (Manual) Eosinophils % (Manual) Nucleated RBC % Seg Neutrophils # Seg Neutrophils # Man Lymphocytes # (Manual) Monocytes # (Manual) Eosinophils # (Manual) PT INR POC ABG pH POC ABG pCO2 POC ABG pO2 Sodium Potassium Chloride Carbon Dioxide BUN Creatinine Glucose POC Glucose 115 H Lactic Acid Calcium Phosphorus Magnesium 1.60 L AST ALT Alkaline Phosphatase Troponin T C-Reactive Protein Total Protein Albumin LDL Cholesterol Direct HDL Cholesterol Urine Creatinine Hepatitis C Antibody Crossmatch Crossmatch [place] 12/23/17 12/24/17 12/24/17 22:48 00:29 03:17 WBC RBC Hgb Hct MCV MCH MCHC RDW Plt Count Lymph % (Auto) Arthur % (Auto) Eos % (Auto) Lymph # Arthur # Eos # Baso # Seg Neutrophils % Seg Neuts % (Manual) Lymphocytes % (Manual) Monocytes % (Manual) Eosinophils % (Manual) Nucleated RBC % Seg Neutrophils # Seg Neutrophils # Man Lymphocytes # (Manual) Monocytes # (Manual) Eosinophils # (Manual) PT INR POC ABG pH POC ABG pCO2 POC ABG pO2 Sodium 146 H Potassium 2.9 L* 3.4 L Chloride Carbon Dioxide BUN 36 H Creatinine 0.7 L Glucose POC Glucose 111 H Lactic Acid Calcium 7.5 L Phosphorus Magnesium 1.60 L AST 76 H ALT 59 H Alkaline Phosphatase 294 H Troponin T C-Reactive Protein Total Protein 5.8 L Albumin 2.2 L LDL Cholesterol Direct HDL Cholesterol Urine Creatinine Hepatitis C Antibody Crossmatch Crossmatch [place] 12/24/17 12/24/17 12/24/17 03:17 05:14 17:05 WBC RBC 3.03 L Hgb 7.6 L Hct 23.7 L MCV 78 L MCH 25 L MCHC RDW 17.8 H Plt Count Lymph % (Auto) Arthur % (Auto) Eos % (Auto) Lymph # Arthur # Eos # Baso # Seg Neutrophils % Seg Neuts % (Manual) Lymphocytes % (Manual) Monocytes % (Manual) Eosinophils % (Manual) Nucleated RBC % Seg Neutrophils # Seg Neutrophils # Man Lymphocytes # (Manual) Monocytes # (Manual) Eosinophils # (Manual) PT INR POC ABG pH POC ABG pCO2 POC ABG pO2 Sodium Potassium Chloride Carbon Dioxide BUN Creatinine Glucose POC Glucose 127 H 132 H Lactic Acid Calcium Phosphorus Magnesium AST ALT Alkaline Phosphatase Troponin T C-Reactive Protein Total Protein Albumin LDL Cholesterol Direct HDL Cholesterol Urine Creatinine Hepatitis C Antibody Crossmatch Crossmatch [place] 12/25/17 12/25/17 12/25/17 00:03 04:34 06:25 WBC RBC Hgb Hct MCV MCH MCHC RDW Plt Count Lymph % (Auto) Arthur % (Auto) Eos % (Auto) Lymph # Arthur # Eos # Baso # Seg Neutrophils % Seg Neuts % (Manual) Lymphocytes % (Manual) Monocytes % (Manual) Eosinophils % (Manual) Nucleated RBC % Seg Neutrophils # Seg Neutrophils # Man Lymphocytes # (Manual) Monocytes # (Manual) Eosinophils # (Manual) PT INR POC ABG pH POC ABG pCO2 POC ABG pO2 Sodium Potassium Chloride Carbon Dioxide BUN 30 H Creatinine 0.6 L Glucose 114 H POC Glucose 128 H 136 H Lactic Acid Calcium 7.5 L Phosphorus Magnesium AST 84 H ALT 82 H Alkaline Phosphatase 322 H Troponin T C-Reactive Protein Total Protein 6.0 L Albumin 2.3 L LDL Cholesterol Direct HDL Cholesterol Urine Creatinine Hepatitis C Antibody Crossmatch Crossmatch [facility] 12/25/17 12/25/17 12/26/17 12:02 18:28 00:03 WBC RBC Hgb Hct MCV MCH MCHC RDW Plt Count Lymph % (Auto) Arthur % (Auto) Eos % (Auto) Lymph # Arthur # Eos # Baso # Seg Neutrophils % Seg Neuts % (Manual) Lymphocytes % (Manual) Monocytes % (Manual) Eosinophils % (Manual) Nucleated RBC % Seg Neutrophils # Seg Neutrophils # Man Lymphocytes # (Manual) Monocytes # (Manual) Eosinophils # (Manual) PT INR POC ABG pH POC ABG pCO2 POC ABG pO2 Sodium Potassium Chloride Carbon Dioxide BUN Creatinine Glucose POC Glucose 158 H 113 H 117 H Lactic Acid Calcium Phosphorus Magnesium AST ALT Alkaline Phosphatase Troponin T C-Reactive Protein Total Protein Albumin LDL Cholesterol Direct HDL Cholesterol Urine Creatinine Hepatitis C Antibody Crossmatch Crossmatch [place] 12/26/17 12/26/17 12/26/17 04:26 06:35 08:47 WBC RBC Hgb Hct MCV MCH MCHC RDW Plt Count Lymph % (Auto) Arthur % (Auto) Eos % (Auto) Lymph # Arthur # Eos # Baso # Seg Neutrophils % Seg Neuts % (Manual) Lymphocytes % (Manual) Monocytes % (Manual) Eosinophils % (Manual) Nucleated RBC % Seg Neutrophils # Seg Neutrophils # Man Lymphocytes # (Manual) Monocytes # (Manual) Eosinophils # (Manual) PT INR POC ABG pH POC ABG pCO2 POC ABG pO2 Sodium Potassium 5.4 H D 3.3 L D Chloride Carbon Dioxide 21 L BUN 39 H Creatinine 0.7 L Glucose 121 H POC Glucose 122 H Lactic Acid Calcium 7.8 L Phosphorus Magnesium AST 144 H ALT 98 H Alkaline Phosphatase 330 H Troponin T C-Reactive Protein Total Protein 6.1 L Albumin 2.1 L LDL Cholesterol Direct HDL Cholesterol Urine Creatinine Hepatitis C Antibody Crossmatch Crossmatch [place] 12/26/17 12/26/17 12/27/17 12:29 18:27 07:34 WBC RBC Hgb Hct MCV MCH MCHC RDW Plt Count Lymph % (Auto) Arthur % (Auto) Eos % (Auto) Lymph # Arthur # Eos # Baso # Seg Neutrophils % Seg Neuts % (Manual) Lymphocytes % (Manual) Monocytes % (Manual) Eosinophils % (Manual) Nucleated RBC % Seg Neutrophils # Seg Neutrophils # Man Lymphocytes # (Manual) Monocytes # (Manual) Eosinophils # (Manual) PT INR POC ABG pH POC ABG pCO2 POC ABG pO2 Sodium Potassium 3.1 L Chloride Carbon Dioxide BUN Creatinine 0.5 L Glucose POC Glucose 128 H 121 H Lactic Acid Calcium 7.7 L Phosphorus Magnesium AST 74 H ALT 80 H Alkaline Phosphatase 306 H Troponin T C-Reactive Protein Total Protein 6.1 L Albumin 2.1 L LDL Cholesterol Direct HDL Cholesterol Urine Creatinine Hepatitis C Antibody Crossmatch Crossmatch [place] 12/27/17 12/28/17 12/28/17 07:34 04:59 04:59 WBC 11.1 H RBC 3.00 L Hgb 7.2 L Hct 23.6 L MCV 79 L MCH 24 L MCHC 31 L RDW 18.3 H Plt Count Lymph % (Auto) 10.0 L Arthur % (Auto) 10.2 H Eos % (Auto) 6.7 H Lymph # 1.1 L Arthur # 1.1 H Eos # 0.7 H Baso # Seg Neutrophils % 72.1 H Seg Neuts % (Manual) Lymphocytes % (Manual) Monocytes % (Manual) Eosinophils % (Manual) Nucleated RBC % Seg Neutrophils # 8.0 H Seg Neutrophils # Man Lymphocytes # (Manual) Monocytes # (Manual) Eosinophils # (Manual) PT INR POC ABG pH POC ABG pCO2 POC ABG pO2 Sodium Potassium Chloride Carbon Dioxide BUN Creatinine 0.4 L Glucose 102 H POC Glucose Lactic Acid Calcium 7.8 L Phosphorus Magnesium 1.30 L AST 58 H ALT 62 H Alkaline Phosphatase 274 H Troponin T C-Reactive Protein Total Protein 6.0 L Albumin 2.0 L LDL Cholesterol Direct HDL Cholesterol Urine Creatinine Hepatitis C Antibody Crossmatch Crossmatch [place] 12/28/17 12/29/17 12/29/17 18:06 04:02 04:02 WBC RBC Hgb Hct MCV MCH MCHC RDW Plt Count Lymph % (Auto) Arthur % (Auto) Eos % (Auto) Lymph # Arthur # Eos # Baso # Seg Neutrophils % Seg Neuts % (Manual) Lymphocytes % (Manual) Monocytes % (Manual) Eosinophils % (Manual) Nucleated RBC % Seg Neutrophils # Seg Neutrophils # Man Lymphocytes # (Manual) Monocytes # (Manual) Eosinophils # (Manual) PT INR POC ABG pH POC ABG pCO2 POC ABG pO2 Sodium Potassium Chloride Carbon Dioxide BUN Creatinine 0.5 L Glucose POC Glucose 107 H Lactic Acid Calcium 7.8 L Phosphorus Magnesium 1.40 L AST 50 H ALT Alkaline Phosphatase 311 H Troponin T C-Reactive Protein Total Protein 5.9 L Albumin 2.3 L LDL Cholesterol Direct HDL Cholesterol Urine Creatinine Hepatitis C Antibody Crossmatch Crossmatch [place] 12/29/17 12/29/17 12/30/17 12:10 17:33 04:46 WBC RBC Hgb Hct MCV MCH MCHC RDW Plt Count Lymph % (Auto) Arthur % (Auto) Eos % (Auto) Lymph # Arthur # Eos # Baso # Seg Neutrophils % Seg Neuts % (Manual) Lymphocytes % (Manual) Monocytes % (Manual) Eosinophils % (Manual) Nucleated RBC % Seg Neutrophils # Seg Neutrophils # Man Lymphocytes # (Manual) Monocytes # (Manual) Eosinophils # (Manual) PT INR POC ABG pH POC ABG pCO2 POC ABG pO2 Sodium Potassium Chloride Carbon Dioxide BUN Creatinine 0.5 L Glucose POC Glucose 124 H 108 H Lactic Acid Calcium 8.2 L Phosphorus Magnesium AST ALT Alkaline Phosphatase 288 H Troponin T C-Reactive Protein Total Protein Albumin 2.4 L LDL Cholesterol Direct HDL Cholesterol Urine Creatinine Hepatitis C Antibody Crossmatch Crossmatch [place] 12/30/17 12/31/17 12/31/17 04:46 04:03 04:03 WBC RBC Hgb Hct MCV MCH MCHC RDW Plt Count Lymph % (Auto) Arthur % (Auto) Eos % (Auto) Lymph # Arthur # Eos # Baso # Seg Neutrophils % Seg Neuts % (Manual) Lymphocytes % (Manual) Monocytes % (Manual) Eosinophils % (Manual) Nucleated RBC % Seg Neutrophils # Seg Neutrophils # Man Lymphocytes # (Manual) Monocytes # (Manual) Eosinophils # (Manual) PT INR POC ABG pH POC ABG pCO2 POC ABG pO2 Sodium Potassium Chloride Carbon Dioxide BUN Creatinine 0.4 L Glucose 103 H POC Glucose Lactic Acid Calcium 8.1 L Phosphorus Magnesium 1.50 L 1.30 L AST ALT Alkaline Phosphatase Troponin T C-Reactive Protein Total Protein Albumin LDL Cholesterol Direct HDL Cholesterol Urine Creatinine Hepatitis C Antibody Crossmatch Crossmatch [place] 12/31/17 12/31/17 01/01/18 16:56 23:55 04:26 WBC RBC Hgb Hct MCV MCH MCHC RDW Plt Count Lymph % (Auto) Arthur % (Auto) Eos % (Auto) Lymph # Arthur # Eos # Baso # Seg Neutrophils % Seg Neuts % (Manual) Lymphocytes % (Manual) Monocytes % (Manual) Eosinophils % (Manual) Nucleated RBC % Seg Neutrophils # Seg Neutrophils # Man Lymphocytes # (Manual) Monocytes # (Manual) Eosinophils # (Manual) PT INR POC ABG pH POC ABG pCO2 POC ABG pO2 Sodium Potassium 3.5 L Chloride Carbon Dioxide BUN Creatinine 0.3 L Glucose 105 H POC Glucose 106 H 108 H Lactic Acid Calcium 7.9 L Phosphorus Magnesium AST ALT Alkaline Phosphatase Troponin T C-Reactive Protein Total Protein Albumin LDL Cholesterol Direct HDL Cholesterol Urine Creatinine Hepatitis C Antibody Crossmatch Crossmatch [place] 01/01/18 01/01/18 01/02/18 04:26 05:26 03:45 WBC RBC 3.07 L Hgb 7.6 L Hct 24.1 L MCV 78 L MCH 25 L MCHC 31 L RDW 18.2 H Plt Count Lymph % (Auto) Arthur % (Auto) Eos % (Auto) Lymph # Arthur # Eos # Baso # Seg Neutrophils % Seg Neuts % (Manual) 72.0 H Lymphocytes % (Manual) 13.0 L Monocytes % (Manual) Eosinophils % (Manual) 7.0 H Nucleated RBC % 1.0 H Seg Neutrophils # Seg Neutrophils # Man Lymphocytes # (Manual) Monocytes # (Manual) Eosinophils # (Manual) 0.7 H PT INR POC ABG pH POC ABG pCO2 POC ABG pO2 Sodium 134 L Potassium Chloride Carbon Dioxide BUN Creatinine 0.4 L Glucose POC Glucose 107 H Lactic Acid Calcium 8.1 L Phosphorus Magnesium AST ALT Alkaline Phosphatase Troponin T C-Reactive Protein Total Protein Albumin LDL Cholesterol Direct HDL Cholesterol Urine Creatinine Hepatitis C Antibody Crossmatch Crossmatch [place] 01/02/18 03:45 WBC 13.1 H RBC 3.17 L Hgb 7.5 L Hct 24.8 L MCV 78 L MCH 24 L MCHC 31 L RDW 18.2 H Plt Count Lymph % (Auto) 11.0 L Arthur % (Auto) 8.8 H Eos % (Auto) Lymph # Arthur # 1.2 H Eos # 0.5 H Baso # 0.2 H Seg Neutrophils % 74.7 H Seg Neuts % (Manual) Lymphocytes % (Manual) Monocytes % (Manual) Eosinophils % (Manual) Nucleated RBC % Seg Neutrophils # 9.8 H Seg Neutrophils # Man Lymphocytes # (Manual) Monocytes # (Manual) Eosinophils # (Manual) PT INR POC ABG pH POC ABG pCO2 POC ABG pO2 Sodium Potassium Chloride Carbon Dioxide BUN Creatinine Glucose POC Glucose Lactic Acid Calcium Phosphorus Magnesium AST ALT Alkaline Phosphatase Troponin T C-Reactive Protein Total Protein Albumin LDL Cholesterol Direct HDL Cholesterol Urine Creatinine Hepatitis C Antibody Crossmatch Crossmatch [place]
--- NOTE | 2018-01-02 11:06 | Progress Note ---
Assessment and Plan Assessment and plan: --Acute hypoxic respiratory failure; requiring mechanical ventilation more than 96% Status post tracheostomy, continue trach care, nebulizers, oxygen --Aspiration pneumonia; received complete treatment, resolved --Peritonitis: from dislodged peg tube Patient received complete course of antibiotics Multiple surgical procedures with intra-abdominal drainage placement IR and surgery evaluated the patient Continue current management, awaiting for wound healing Possible new peg placement when medically stable Continue to monitor output of the drains, will DC the drains when output clears --Acute kidney injury; secondary to ATN Requiring intermittent dialysis as needed --Chronic anemia; received total 3 units of PRBC, closely monitor H&H transfuse as needed --Hypernatremia/hypokalemia/hypomagnesemia; Closely monitor electrolytes and adjust as needed --History of carotid endarterectomy; supportive care --Metabolic encephalopathy; supportive care --Severe malnutrition; nutrition supplements and feeding --DVT prophylaxis; SCDs --Full CODE STATUS Patient is critically ill, recommend hospice Consults and recommendations noted DC planning per case management LT[facility] declined admission KILEY rosenthal daughter, Eugenie [phone], History Interval history: Patient seen and examined medical records reviewed Patient is noncommunicative cachectic chronically ill looking Status post tracheostomy on T piece No new events reported by the nursing staff Vital signs noted Hospitalist Physical - Constitutional Vitals: Temp Pulse Resp BP Pulse Ox 98.9 F 102 H 37 H 152/91 98 01/02/18 08:00 01/02/18 10:00 01/02/18 10:00 01/02/18 10:00 01/02/18 10:00 General appearance: Present: no acute distress, cachectic, disheveled, other ( tracheostomy on T piece) - Neck Neck: Present: supple, normal ROM - Respiratory Respiratory effort: normal Respiratory: bilateral: diminished, rhonchi, negative: rales, wheezing - Cardiovascular Rhythm: regular Heart Sounds: Present: S1 & S2 - Extremities Extremities: no ischemia Extremity abnormal: edema - Abdominal General gastrointestinal: soft, non-tender, non-distended, other (drainage tube in place) - Integumentary Integumentary: Present: clear, warm - Psychiatric Psychiatric: other (noncommunicative) - Neurologic Neurologic: other (noncommunicative) Results - Labs CBC & Chem 7: 01/02/18 03:45 01/02/18 03:45 Labs: Laboratory Last Values WBC 13.1 K/mm3 (4.5-11.0) H 01/02/18 03:45 RBC 3.17 M/mm3 (3.65-5.03) L 01/02/18 03:45 Hgb 7.5 gm/dl (11.8-15.2) L 01/02/18 03:45 Hct 24.8 % (35.5-45.6) L 01/02/18 03:45 MCV 78 fl (84-94) L 01/02/18 03:45 MCH 24 pg (28-32) L 01/02/18 03:45 MCHC 31 % (32-34) L 01/02/18 03:45 RDW 18.2 % (13.2-15.2) H 01/02/18 03:45 Plt Count 229 K/mm3 (140-440) 01/02/18 03:45 Lymph % (Auto) 11.0 % (13.4-35.0) L 01/02/18 03:45 [place] % (Auto) 8.8 % (0.0-7.3) H 01/02/18 03:45 Eos % (Auto) 4.1 % (0.0-4.3) 01/02/18 03:45 Baso % (Auto) 1.4 % (0.0-1.8) 01/02/18 03:45 Lymph # 1.4 K/mm3 (1.2-5.4) 01/02/18 03:45 [place] # 1.2 K/mm3 (0.0-0.8) H 01/02/18 03:45 Eos # 0.5 K/mm3 (0.0-0.4) H 01/02/18 03:45 Baso # 0.2 K/mm3 (0.0-0.1) H 01/02/18 03:45 Add Manual Diff Complete 01/01/18 04:26 Total Counted 100 01/01/18 04:26 Seg Neutrophils % 74.7 % (40.0-70.0) H 01/02/18 03:45 Seg Neuts % (Manual) 72.0 % (40.0-70.0) H 01/01/18 04:26 Band Neutrophils % 0 % 01/01/18 04:26 Lymphocytes % (Manual) 13.0 % (13.4-35.0) L 01/01/18 04:26 Reactive Lymphs % (Man) 0 % 01/01/18 04:26 Monocytes % (Manual) 7.0 % (0.0-7.3) 01/01/18 04:26 Eosinophils % (Manual) 7.0 % (0.0-4.3) H 01/01/18 04:26 Basophils % (Manual) 1.0 % (0.0-1.8) 01/01/18 04:26 Metamyelocytes % 0 % 01/01/18 04:26 Myelocytes % 0 % 01/01/18 04:26 Promyelocytes % 0 % 01/01/18 04:26 Blast Cells % 0 % 01/01/18 04:26 Nucleated RBC % 1.0 % (0.0-0.9) H 01/01/18 04:26 Seg Neutrophils # 9.8 K/mm3 (1.8-7.7) H 01/02/18 03:45 Seg Neutrophils # Man 7.5 K/mm3 (1.8-7.7) 01/01/18 04:26 Band Neutrophils # 0.0 K/mm3 01/01/18 04:26 Lymphocytes # (Manual) 1.4 K/mm3 (1.2-5.4) 01/01/18 04:26 Abs React Lymphs (Man) 0.0 K/mm3 01/01/18 04:26 Monocytes # (Manual) 0.7 K/mm3 (0.0-0.8) 01/01/18 04:26 Eosinophils # (Manual) 0.7 K/mm3 (0.0-0.4) H 01/01/18 04:26 Basophils # (Manual) 0.1 K/mm3 (0.0-0.1) 01/01/18 04:26 Metamyelocytes # 0.0 K/mm3 01/01/18 04:26 Myelocytes # 0.0 K/mm3 01/01/18 04:26 Promyelocytes # 0.0 K/mm3 01/01/18 04:26 Blast Cells # 0.0 K/mm3 01/01/18 04:26 WBC Morphology Not Reportable 01/01/18 04:26 Hypersegmented Neuts Not Reportable 01/01/18 04:26 Hyposegmented Neuts Not Reportable 01/01/18 04:26 Hypogranular Neuts Not Reportable 01/01/18 04:26 Smudge Cells Not Reportable 01/01/18 04:26 Toxic Granulation Not Reportable 01/01/18 04:26 Toxic Vacuolation Not Reportable 01/01/18 04:26 Dohle Bodies Not Reportable 01/01/18 04:26 Pelger-Huet Anomaly Not Reportable 01/01/18 04:26 Evangelina Rods Not Reportable 01/01/18 04:26 Platelet Estimate Consistent w auto 01/01/18 04:26 Clumped Platelets Not Reportable 01/01/18 04:26 Plt Clumps, EDTA Not Reportable 01/01/18 04:26 Large Platelets Not Reportable 01/01/18 04:26 Giant Platelets Not Reportable 01/01/18 04:26 Platelet Satelliting Not Reportable 01/01/18 04:26 Plt Morphology Comment Not Reportable 01/01/18 04:26 RBC Morphology Not Reportable 01/01/18 04:26 Dimorphic RBCs Not Reportable 01/01/18 04:26 Polychromasia Not Reportable 01/01/18 04:26 Hypochromasia Not Reportable 01/01/18 04:26 Poikilocytosis Not Reportable 01/01/18 04:26 Anisocytosis 1+ 01/01/18 04:26 Microcytosis Not Reportable 01/01/18 04:26 Macrocytosis Not Reportable 01/01/18 04:26 Spherocytes Not Reportable 01/01/18 04:26 Pappenheimer Bodies Not Reportable 01/01/18 04:26 Sickle Cells Not Reportable 01/01/18 04:26 Target Cells Not Reportable 01/01/18 04:26 Tear Drop Cells Not Reportable 01/01/18 04:26 Ovalocytes Not Reportable 01/01/18 04:26 Stomatocytes Few 01/01/18 04:26 Helmet Cells Not Reportable 01/01/18 04:26 [place] Bodies Not Reportable 01/01/18 04:26 [place] Rings Not Reportable 01/01/18 04:26 [place] Cells Not Reportable 01/01/18 04:26 Bite Cells Not Reportable 01/01/18 04:26 Crenated Cell Not Reportable 01/01/18 04:26 Elliptocytes Not Reportable 01/01/18 04:26 Acanthocytes (Spur) Not Reportable 01/01/18 04:26 Rouleaux Not Reportable 01/01/18 04:26 Hemoglobin C Crystals Not Reportable 01/01/18 04:26 Schistocytes Not Reportable 01/01/18 04:26 Malaria parasites Not Reportable 01/01/18 04:26 [place] Bodies Not Reportable 01/01/18 04:26 Hem Pathologist Commnt No 01/01/18 04:26 PT 15.4 Sec. (12.2-14.9) H 12/14/17 05:11 INR 1.17 (0.87-1.13) H 12/14/17 05:11 APTT 33.8 Sec. (24.2-36.6) 11/26/17 06:29 POC ABG pH 7.505 (7.35-7.45) H 11/23/17 04:56 POC ABG pCO2 26.3 (35-45) L 11/23/17 04:56 POC ABG pO2 100 (80-105) 11/23/17 04:56 POC ABG HCO3 20.8 11/23/17 04:56 POC ABG Total CO2 22 11/23/17 04:56 POC ABG O2 Sat 98 11/23/17 04:56 POC ABG Base Excess -2 11/23/17 04:56 FiO2 30 % 11/23/17 04:56 Sodium 134 mmol/L (137-145) L 01/02/18 03:45 Potassium 3.9 mmol/L (3.6-5.0) 01/02/18 03:45 Chloride 104.5 mmol/L (98-107) 01/02/18 03:45 Carbon Dioxide 23 mmol/L (22-30) 01/02/18 03:45 Anion Gap 10 mmol/L 01/02/18 03:45 BUN 11 mg/dL (9-20) 01/02/18 03:45 Creatinine 0.4 mg/dL (0.8-1.5) L 01/02/18 03:45 Estimated GFR > 60 ml/min 01/02/18 03:45 BUN/Creatinine Ratio 28 % 01/02/18 03:45 Glucose 99 mg/dL (75-100) 01/02/18 03:45 POC Glucose 104 (70-105) 01/02/18 05:37 Lactic Acid 1.80 mmol/L (0.7-2.0) 11/27/17 04:06 Calcium 8.1 mg/dL (8.4-10.2) L 01/02/18 03:45 Phosphorus 3.40 mg/dL (2.5-4.5) 01/02/18 03:45 Magnesium 1.70 mg/dL (1.7-2.3) 01/02/18 03:45 Total Bilirubin 0.30 mg/dL (0.1-1.2) 12/30/17 04:46 AST 37 units/L (5-40) 12/30/17 04:46 ALT 48 units/L (7-56) 12/30/17 04:46 Alkaline Phosphatase 288 units/L (35-129) H 12/30/17 04:46 Total Creatine Kinase 84 units/L (55-170) 11/12/17 20:03 CK-MB (CK-2) < 1.0 ng/mL (0.0-4.0) 11/12/17 20:03 CK-MB (CK-2) Rel Index 1.1 (0-4) 11/12/17 20:03 Troponin T 0.098 ng/mL (0.00-0.029) H 11/12/17 Unknown C-Reactive Protein 25.70 mg/dL (0.00-1.30) H 11/11/17 23:20 NT-Pro-B Natriuret Pep 792.4 pg/mL (0-900) 11/11/17 23:20 Total Protein 6.6 g/dL (6.3-8.2) 12/30/17 04:46 Albumin 2.4 g/dL (3.9-5) L 12/30/17 04:46 Albumin/Globulin Ratio 0.6 % 12/30/17 04:46 Triglycerides 86 mg/dL (2-149) 11/11/17 23:20 Cholesterol 82 mg/dL (50-199) 11/11/17 23:20 LDL Cholesterol Direct 42 mg/dL (50-130) L 11/11/17 23:20 HDL Cholesterol 24 mg/dL (40-59) L 11/11/17 23:20 Cholesterol/HDL Ratio 3.41 % 11/11/17 23:20 Lipase 30 units/L (13-60) 11/11/17 23:20 Urine Color [place] (Yellow) 11/11/17 23:09 Urine Turbidity Cloudy (Clear) 11/11/17 23:09 Urine pH 5.0 (5.0-7.0) 11/11/17 23:09 Ur Specific [place] 1.025 (1.003-1.030) 11/11/17 23:09 Urine Protein 100 mg/dl mg/dL (Negative) 11/11/17 23:09 Urine Glucose (UA) 50 mg/dL (Negative) 11/11/17 23:09 Urine Ketones Neg mg/dL (Negative) 11/11/17 23:09 Urine Blood Neg (Negative) 11/11/17 23:09 Urine Nitrite Neg (Negative) 11/11/17 23:09 Urine Bilirubin Neg (Negative) 11/11/17 23:09 Urine Urobilinogen 4.0 mg/dL (<2.0) 11/11/17 23:09 Ur Leukocyte Esterase Neg (Negative) 11/11/17 23:09 Urine WBC (Auto) 5.0 /HPF (0.0-6.0) 11/11/17 23:09 Urine RBC (Auto) 4.0 /HPF (0.0-6.0) 11/11/17 23:09 Urine Bacteria (Auto) 3+ /HPF (Negative) 11/11/17 23:09 Amorphous Crystals 3+ 11/11/17 23:09 Hyaline Casts 76 /LPF 11/11/17 23:09 Urine Mucus 2+ /HPF 11/11/17 23:09 Urine Total Volume 1350 12/22/17 10:50 Urine Creatinine 55.8 mg/dL (0.1-20.0) H 12/22/17 10:50 Ur Creatinine 24 Hour 0.8 (0.8-2.8) 12/22/17 10:50 Hepatitis A IgM Ab Non-reactive (NonReactive) 11/22/17 19:45 Hep Bs Antigen Non-reactive (Negative) 11/22/17 19:45 Hep B Core IgM Ab Non-reactive (NonReactive) 11/22/17 19:45 Hepatitis C Antibody Reactive (NonReactive) A 11/22/17 19:45 Blood Type A POSITIVE 12/16/17 13:01 Antibody Screen Positive 12/16/17 13:01 SANT[place] Antibody Screen Cancelled 12/16/17 13:01 Antibody Identification Cold Antibody 12/16/17 13:01 Crossmatch See Detail 12/16/17 13:01 Crossmatch Prew[place] See Detail 12/16/17 13:01
[2018-01-03] MEDS: NACL 0.45% 1000 ML 1,000 ML IV SCH ×2 (06:19→17:01)
[2018-01-03] MEDS: POTASSIUM CHLORIDE FEEDTUBE SCH ×2 (09:20→21:10)
[2018-01-03] MEDS: PREVACID SOLUTAB FEEDTUBE SCH ×2 (09:21→21:14)
[2018-01-03] MEDS: MAG-OX PO SCH ×2 (09:21→21:13)
[2018-01-03] MEDS: LOPRESSOR PO SCH ×2 (09:21→21:15)
--- NOTE | 2018-01-03 10:46 | Progress Note ---
Assessment and Plan 67 y/o male with acute on chronic respiratory failure, now trached, with peritonitis from dislodged peg tube s/p 2 IR drains now with NGT feedings. No new recs for today. Please see below. 1. Trach Care. Trach is permanent as patient cannot clear his secretions himself 2. Off IV abx therapy now 3. Electrolytes per primary and renal, now off HD 4. Will continue to follow along with you. Subjective Date of service: 01/03/18 Principal diagnosis: Acute hypoxic respiratory failure, s/p Trach Interval history: No acute events. Pulm status is unchanged. Objective Vital Signs - 12hr 01/02/18 01/02/18 01/02/18 23:00 23:18 23:44 Temperature 98.8 F Pulse Rate 100 H 103 H Pulse Rate [ Left Radial] Pulse Rate [ Right From Monitor] Respiratory 34 H 36 H Rate Blood Pressure 139/79 139/79 O2 Sat by Pulse 97 96 Oximetry O2 Sat by Pulse Oximetry [ Assessment] 01/03/18 01/03/18 01/03/18 00:00 01:00 02:00 Temperature Pulse Rate 103 H 104 H 103 H Pulse Rate [ 110 H Left Radial] Pulse Rate [ 111 H Right From Monitor] Respiratory 32 H 31 H 31 H Rate Blood Pressure 143/84 140/79 151/79 O2 Sat by Pulse 96 95 93 Oximetry O2 Sat by Pulse Oximetry [ Assessment] 01/03/18 01/03/18 01/03/18 02:10 03:00 03:20 Temperature 98.9 F Pulse Rate 109 H Pulse Rate [ Left Radial] Pulse Rate [ Right From Monitor] Respiratory 27 H Rate Blood Pressure 151/79 O2 Sat by Pulse 97 96 Oximetry O2 Sat by Pulse 98 Oximetry [ Assessment] 01/03/18 01/03/18 01/03/18 04:00 05:00 06:00 Temperature Pulse Rate 112 H 115 H 115 H Pulse Rate [ 110 H Left Radial] Pulse Rate [ 111 H Right From Monitor] Respiratory 35 H 36 H 33 H Rate Blood Pressure 166/94 165/83 154/97 O2 Sat by Pulse 96 88 98 Oximetry O2 Sat by Pulse Oximetry [ Assessment] 01/03/18 01/03/18 01/03/18 07:00 07:15 07:49 Temperature 98.8 F Pulse Rate 107 H Pulse Rate [ Left Radial] Pulse Rate [ Right From Monitor] Respiratory 28 H Rate Blood Pressure 143/89 O2 Sat by Pulse 95 100 Oximetry O2 Sat by Pulse 100 Oximetry [ Assessment] 01/03/18 01/03/18 01/03/18 08:00 09:00 09:21 Temperature Pulse Rate 120 H 113 H 111 H Pulse Rate [ 116 H Left Radial] Pulse Rate [ 111 H Right From Monitor] Respiratory 28 H 29 H Rate Blood Pressure 156/93 142/86 142/86 O2 Sat by Pulse Oximetry O2 Sat by Pulse Oximetry [ Assessment] Constitutional: no acute distress Eyes: non-icteric ENT: oropharynx moist Neck: supple (trach in position) Effort: normal Ascultation: Bilateral: clear, rales (few bilaterally), rhonchi (mild bilateral) , other (coarse BS bilaterally) Cardiovascular: regular rate and rhythm Gastrointestinal: normoactive bowel sounds, soft, non-tender, other (drains in place) Integumentary: normal Extremities: no cyanosis, pink and warm, edema (2+ bilateral LE edema) Neurologic: other (L hemiparesis,awake, response to my voice) Psychiatric: other (unable to assess) CBC and BMP: 01/02/18 03:45 01/02/18 03:45 ABG, PT/INR, D-dimer: ABG POC ABG pH 7.505 (7.35-7.45) H 11/23/17 04:56 POC ABG pCO2 26.3 (35-45) L 11/23/17 04:56 POC ABG pO2 100 (80-105) 11/23/17 04:56 POC ABG HCO3 20.8 11/23/17 04:56 POC ABG Total CO2 22 11/23/17 04:56 POC ABG O2 Sat 98 11/23/17 04:56 PT/INR, D-dimer PT 15.4 Sec. (12.2-14.9) H 12/14/17 05:11 INR 1.17 (0.87-1.13) H 12/14/17 05:11 Abnormal lab findings: Abnormal Labs 11/11/17 11/11/17 11/11/17 23:18 23:20 23:20 WBC RBC Hgb 10.4 L Hct 32.6 L D MCV MCH 27 L MCHC RDW 17.4 H Plt Count 105 L Lymph % (Auto) [place] % (Auto) Eos % (Auto) Lymph # [place] # Eos # Baso # Seg Neutrophils % Seg Neuts % (Manual) Lymphocytes % (Manual) 8.0 L Monocytes % (Manual) Eosinophils % (Manual) Nucleated RBC % 1.0 H Seg Neutrophils # Seg Neutrophils # Man Lymphocytes # (Manual) 0.7 L Monocytes # (Manual) Eosinophils # (Manual) PT INR POC ABG pH 7.550 H POC ABG pCO2 31.6 L POC ABG pO2 Sodium 146 H Potassium Chloride Carbon Dioxide BUN 26 H Creatinine 1.7 H D Glucose 133 H POC Glucose Lactic Acid Calcium Phosphorus Magnesium AST ALT Alkaline Phosphatase Troponin T 0.117 H* C-Reactive Protein Total Protein Albumin 2.5 L LDL Cholesterol Direct 42 L HDL Cholesterol 24 L Urine Creatinine Hepatitis C Antibody Crossmatch Crossmatch [place] 11/11/17 11/12/17 11/12/17 23:20 00:23 00:23 WBC RBC Hgb Hct MCV MCH MCHC RDW Plt Count Lymph % (Auto) [place] % (Auto) Eos % (Auto) Lymph # [place] # Eos # Baso # Seg Neutrophils % Seg Neuts % (Manual) Lymphocytes % (Manual) Monocytes % (Manual) Eosinophils % (Manual) Nucleated RBC % Seg Neutrophils # Seg Neutrophils # Man Lymphocytes # (Manual) Monocytes # (Manual) Eosinophils # (Manual) PT 16.7 H INR 1.28 H POC ABG pH POC ABG pCO2 POC ABG pO2 Sodium Potassium Chloride Carbon Dioxide BUN Creatinine Glucose POC Glucose Lactic Acid 3.20 H* Calcium Phosphorus Magnesium AST ALT Alkaline Phosphatase Troponin T C-Reactive Protein 25.70 H Total Protein Albumin LDL Cholesterol Direct HDL Cholesterol Urine Creatinine Hepatitis C Antibody Crossmatch Crossmatch [place] 11/12/17 11/12/17 11/12/17 00:46 01:27 01:27 WBC RBC Hgb Hct MCV MCH MCHC RDW Plt Count Lymph % (Auto) [place] % (Auto) Eos % (Auto) Lymph # [place] # Eos # Baso # Seg Neutrophils % Seg Neuts % (Manual) Lymphocytes % (Manual) Monocytes % (Manual) Eosinophils % (Manual) Nucleated RBC % Seg Neutrophils # Seg Neutrophils # Man Lymphocytes # (Manual) Monocytes # (Manual) Eosinophils # (Manual) PT INR POC ABG pH 7.495 H POC ABG pCO2 32.0 L POC ABG pO2 64 L Sodium Potassium Chloride Carbon Dioxide BUN Creatinine Glucose POC Glucose Lactic Acid 3.70 H* Calcium Phosphorus Magnesium AST ALT Alkaline Phosphatase Troponin T 0.096 H C-Reactive Protein Total Protein Albumin LDL Cholesterol Direct HDL Cholesterol Urine Creatinine Hepatitis C Antibody Crossmatch Crossmatch [place] 11/12/17 11/12/17 11/12/17 03:21 04:50 06:27 WBC RBC Hgb Hct MCV MCH MCHC RDW Plt Count Lymph % (Auto) [place] % (Auto) Eos % (Auto) Lymph # [place] # Eos # Baso # Seg Neutrophils % Seg Neuts % (Manual) Lymphocytes % (Manual) Monocytes % (Manual) Eosinophils % (Manual) Nucleated RBC % Seg Neutrophils # Seg Neutrophils # Man Lymphocytes # (Manual) Monocytes # (Manual) Eosinophils # (Manual) PT INR POC ABG pH POC ABG pCO2 POC ABG pO2 109 H Sodium Potassium Chloride Carbon Dioxide BUN Creatinine Glucose POC Glucose Lactic Acid 3.80 H* 2.20 H* Calcium Phosphorus Magnesium AST ALT Alkaline Phosphatase Troponin T C-Reactive Protein Total Protein Albumin LDL Cholesterol Direct HDL Cholesterol Urine Creatinine Hepatitis C Antibody Crossmatch Crossmatch [place] 11/12/17 11/12/17 11/12/17 09:24 09:24 09:24 WBC RBC Hgb 10.4 L Hct 33.4 L MCV MCH MCHC RDW Plt Count Lymph % (Auto) [place] % (Auto) Eos % (Auto) Lymph # [place] # Eos # Baso # Seg Neutrophils % Seg Neuts % (Manual) Lymphocytes % (Manual) Monocytes % (Manual) Eosinophils % (Manual) Nucleated RBC % Seg Neutrophils # Seg Neutrophils # Man Lymphocytes # (Manual) Monocytes # (Manual) Eosinophils # (Manual) PT INR POC ABG pH POC ABG pCO2 POC ABG pO2 Sodium Potassium Chloride Carbon Dioxide BUN Creatinine Glucose POC Glucose Lactic Acid 2.90 H* Calcium Phosphorus Magnesium AST ALT Alkaline Phosphatase Troponin T 0.091 H C-Reactive Protein Total Protein Albumin LDL Cholesterol Direct HDL Cholesterol Urine Creatinine Hepatitis C Antibody Crossmatch Crossmatch [place] 11/12/17 11/12/17 11/12/17 12:56 20:03 Unknown WBC RBC Hgb Hct MCV MCH MCHC RDW Plt Count Lymph % (Auto) [place] % (Auto) Eos % (Auto) Lymph # [place] # Eos # Baso # Seg Neutrophils % Seg Neuts % (Manual) Lymphocytes % (Manual) Monocytes % (Manual) Eosinophils % (Manual) Nucleated RBC % Seg Neutrophils # Seg Neutrophils # Man Lymphocytes # (Manual) Monocytes # (Manual) Eosinophils # (Manual) PT INR POC ABG pH POC ABG pCO2 POC ABG pO2 Sodium Potassium Chloride Carbon Dioxide BUN Creatinine Glucose POC Glucose Lactic Acid 3.60 H* Calcium Phosphorus Magnesium AST ALT Alkaline Phosphatase Troponin T 0.102 H* 0.156 H* D C-Reactive Protein Total Protein Albumin LDL Cholesterol Direct HDL Cholesterol Urine Creatinine Hepatitis C Antibody Crossmatch Crossmatch [place] 11/12/17 11/13/17 11/13/17 Unknown 04:50 04:50 WBC 12.2 H RBC 3.51 L Hgb 9.3 L Hct 30.1 L MCV MCH 26 L MCHC 31 L RDW 18.0 H Plt Count 128 L Lymph % (Auto) 8.6 L [place] % (Auto) 11.1 H Eos % (Auto) Lymph # 1.1 L [place] # 1.4 H Eos # Baso # Seg Neutrophils % 80.1 H Seg Neuts % (Manual) Lymphocytes % (Manual) Monocytes % (Manual) Eosinophils % (Manual) Nucleated RBC % Seg Neutrophils # 9.8 H Seg Neutrophils # Man Lymphocytes # (Manual) Monocytes # (Manual) Eosinophils # (Manual) PT INR POC ABG pH POC ABG pCO2 POC ABG pO2 Sodium 149 H Potassium 5.1 H Chloride 114.4 H Carbon Dioxide 18 L BUN 52 H Creatinine 3.3 H D Glucose 129 H POC Glucose Lactic Acid Calcium 7.9 L Phosphorus Magnesium AST ALT Alkaline Phosphatase Troponin T 0.098 H C-Reactive Protein Total Protein Albumin LDL Cholesterol Direct HDL Cholesterol Urine Creatinine Hepatitis C Antibody Crossmatch Crossmatch [place] 11/13/17 11/13/17 11/14/17 04:51 09:34 04:21 WBC RBC Hgb Hct MCV MCH MCHC RDW Plt Count Lymph % (Auto) [place] % (Auto) Eos % (Auto) Lymph # [place] # Eos # Baso # Seg Neutrophils % Seg Neuts % (Manual) Lymphocytes % (Manual) Monocytes % (Manual) Eosinophils % (Manual) Nucleated RBC % Seg Neutrophils # Seg Neutrophils # Man Lymphocytes # (Manual) Monocytes # (Manual) Eosinophils # (Manual) PT INR POC ABG pH POC ABG pCO2 30.1 L 29.8 L POC ABG pO2 135 H Sodium Potassium Chloride Carbon Dioxide BUN Creatinine Glucose POC Glucose Lactic Acid 2.10 H* Calcium Phosphorus Magnesium AST ALT Alkaline Phosphatase Troponin T C-Reactive Protein Total Protein Albumin LDL Cholesterol Direct HDL Cholesterol Urine Creatinine Hepatitis C Antibody Crossmatch Crossmatch [place] 11/15/17 11/15/17 11/16/17 04:52 15:50 05:17 WBC RBC Hgb Hct MCV MCH MCHC RDW Plt Count Lymph % (Auto) [place] % (Auto) Eos % (Auto) Lymph # [place] # Eos # Baso # Seg Neutrophils % Seg Neuts % (Manual) Lymphocytes % (Manual) Monocytes % (Manual) Eosinophils % (Manual) Nucleated RBC % Seg Neutrophils # Seg Neutrophils # Man Lymphocytes # (Manual) Monocytes # (Manual) Eosinophils # (Manual) PT INR POC ABG pH POC ABG pCO2 29.5 L 31.5 L POC ABG pO2 115 H 122 H Sodium 154 H Potassium Chloride 117.9 H Carbon Dioxide 19 L BUN 87 H Creatinine 4.1 H Glucose POC Glucose Lactic Acid Calcium 8.1 L Phosphorus Magnesium AST ALT Alkaline Phosphatase Troponin T C-Reactive Protein Total Protein Albumin LDL Cholesterol Direct HDL Cholesterol Urine Creatinine Hepatitis C Antibody Crossmatch Crossmatch [place] 11/16/17 11/17/17 11/17/17 16:37 04:07 10:00 WBC 14.7 H RBC 3.23 L Hgb 8.3 L Hct 28.1 L MCV MCH 26 L MCHC 30 L RDW 18.8 H Plt Count Lymph % (Auto) [place] % (Auto) Eos % (Auto) Lymph # [place] # Eos # Baso # Seg Neutrophils % Seg Neuts % (Manual) 75 H Lymphocytes % (Manual) 8.0 L Monocytes % (Manual) Eosinophils % (Manual) Nucleated RBC % 1.0 H Seg Neutrophils # Seg Neutrophils # Man 11.0 H Lymphocytes # (Manual) Monocytes # (Manual) 0.9 H Eosinophils # (Manual) PT INR POC ABG pH POC ABG pCO2 POC ABG pO2 Sodium 153 H 155 H Potassium Chloride 117.3 H 119.4 H Carbon Dioxide 19 L 20 L BUN 90 H 89 H Creatinine 3.9 H 3.6 H Glucose 111 H 115 H POC Glucose Lactic Acid Calcium 8.1 L 8.0 L Phosphorus Magnesium AST ALT Alkaline Phosphatase Troponin T C-Reactive Protein Total Protein Albumin LDL Cholesterol Direct HDL Cholesterol Urine Creatinine Hepatitis C Antibody Crossmatch Crossmatch [place] 11/18/17 11/18/17 11/18/17 04:34 04:34 04:34 WBC 15.5 H RBC 3.13 L Hgb 8.1 L Hct 26.3 L MCV MCH 26 L MCHC 31 L RDW 18.6 H Plt Count Lymph % (Auto) [place] % (Auto) Eos % (Auto) Lymph # [place] # Eos # Baso # Seg Neutrophils % Seg Neuts % (Manual) 81.0 H Lymphocytes % (Manual) 7.0 L Monocytes % (Manual) Eosinophils % (Manual) Nucleated RBC % 1.0 H Seg Neutrophils # Seg Neutrophils # Man 12.6 H Lymphocytes # (Manual) 1.1 L Monocytes # (Manual) Eosinophils # (Manual) PT 16.7 H INR 1.30 H POC ABG pH POC ABG pCO2 POC ABG pO2 Sodium 155 H Potassium 3.2 L Chloride 121.0 H Carbon Dioxide 20 L BUN 74 H Creatinine 2.9 H Glucose 126 H POC Glucose Lactic Acid Calcium 7.9 L Phosphorus Magnesium AST ALT Alkaline Phosphatase Troponin T C-Reactive Protein Total Protein Albumin LDL Cholesterol Direct HDL Cholesterol Urine Creatinine Hepatitis C Antibody Crossmatch Crossmatch [place] 11/19/17 11/19/17 11/20/17 04:44 04:44 00:38 WBC 19.0 H 22.2 H RBC 3.20 L 3.17 L Hgb 8.4 L 7.9 L Hct 27.9 L 26.4 L MCV 83 L MCH 26 L 25 L MCHC 30 L 30 L RDW 19.1 H 18.9 H Plt Count Lymph % (Auto) [place] % (Auto) Eos % (Auto) Lymph # [place] # Eos # Baso # Seg Neutrophils % Seg Neuts % (Manual) 83.0 H Lymphocytes % (Manual) 3.0 L Monocytes % (Manual) 9.0 H Eosinophils % (Manual) Nucleated RBC % Seg Neutrophils # Seg Neutrophils # Man 18.4 H Lymphocytes # (Manual) 0.7 L Monocytes # (Manual) 2.0 H Eosinophils # (Manual) PT INR POC ABG pH POC ABG pCO2 POC ABG pO2 Sodium 152 H Potassium Chloride 117.1 H Carbon Dioxide 17 L BUN 66 H Creatinine 2.8 H Glucose 119 H POC Glucose Lactic Acid Calcium 7.8 L Phosphorus Magnesium 2.70 H AST ALT Alkaline Phosphatase Troponin T C-Reactive Protein Total Protein Albumin LDL Cholesterol Direct HDL Cholesterol Urine Creatinine Hepatitis C Antibody Crossmatch Crossmatch [place] 11/20/17 11/20/17 11/20/17 03:29 04:48 13:38 WBC RBC Hgb Hct MCV MCH MCHC RDW Plt Count Lymph % (Auto) [place] % (Auto) Eos % (Auto) Lymph # [place] # Eos # Baso # Seg Neutrophils % Seg Neuts % (Manual) Lymphocytes % (Manual) Monocytes % (Manual) Eosinophils % (Manual) Nucleated RBC % Seg Neutrophils # Seg Neutrophils # Man Lymphocytes # (Manual) Monocytes # (Manual) Eosinophils # (Manual) PT INR POC ABG pH POC ABG pCO2 29.4 L POC ABG pO2 Sodium 148 H Potassium 3.4 L Chloride 113.7 H Carbon Dioxide 18 L BUN 59 H Creatinine 2.7 H Glucose 113 H POC Glucose 128 H Lactic Acid Calcium 7.8 L Phosphorus Magnesium AST ALT Alkaline Phosphatase Troponin T C-Reactive Protein Total Protein Albumin LDL Cholesterol Direct HDL Cholesterol Urine Creatinine Hepatitis C Antibody Crossmatch Crossmatch [place] 11/20/17 11/20/17 11/21/17 17:38 23:40 00:13 WBC RBC Hgb 8.4 L Hct 28.0 L MCV MCH MCHC RDW Plt Count Lymph % (Auto) [place] % (Auto) Eos % (Auto) Lymph # [place] # Eos # Baso # Seg Neutrophils % Seg Neuts % (Manual) Lymphocytes % (Manual) Monocytes % (Manual) Eosinophils % (Manual) Nucleated RBC % Seg Neutrophils # Seg Neutrophils # Man Lymphocytes # (Manual) Monocytes # (Manual) Eosinophils # (Manual) PT INR POC ABG pH POC ABG pCO2 POC ABG pO2 Sodium Potassium Chloride Carbon Dioxide BUN Creatinine Glucose POC Glucose 115 H 145 H Lactic Acid Calcium Phosphorus Magnesium AST ALT Alkaline Phosphatase Troponin T C-Reactive Protein Total Protein Albumin LDL Cholesterol Direct HDL Cholesterol Urine Creatinine Hepatitis C Antibody Crossmatch Crossmatch [place] 11/21/17 11/21/17 11/21/17 04:30 04:30 04:58 WBC 21.0 H RBC Hgb 9.6 L Hct 32.7 L MCV MCH 25 L MCHC 29 L RDW 19.7 H Plt Count 746 H Lymph % (Auto) [place] % (Auto) Eos % (Auto) Lymph # [place] # Eos # Baso # Seg Neutrophils % Seg Neuts % (Manual) Lymphocytes % (Manual) Monocytes % (Manual) Eosinophils % (Manual) Nucleated RBC % Seg Neutrophils # Seg Neutrophils # Man Lymphocytes # (Manual) Monocytes # (Manual) Eosinophils # (Manual) PT INR POC ABG pH POC ABG pCO2 POC ABG pO2 Sodium Potassium Chloride 109.4 H Carbon Dioxide 14 L BUN 59 H Creatinine 3.0 H Glucose 137 H POC Glucose 132 H Lactic Acid Calcium 7.6 L Phosphorus Magnesium AST ALT Alkaline Phosphatase Troponin T C-Reactive Protein Total Protein Albumin LDL Cholesterol Direct HDL Cholesterol Urine Creatinine Hepatitis C Antibody Crossmatch Crossmatch [place] 11/21/17 11/21/17 11/21/17 06:30 13:43 14:17 WBC 38.2 H RBC Hgb 9.0 L Hct 32.3 L MCV MCH 25 L MCHC 28 L RDW 20.0 H Plt Count 766 H Lymph % (Auto) [place] % (Auto) Eos % (Auto) Lymph # [place] # Eos # Baso # Seg Neutrophils % Seg Neuts % (Manual) 85.0 H Lymphocytes % (Manual) 1.0 L Monocytes % (Manual) Eosinophils % (Manual) Nucleated RBC % 2.0 H Seg Neutrophils # Seg Neutrophils # Man 32.5 H Lymphocytes # (Manual) 0.4 L Monocytes # (Manual) 2.3 H Eosinophils # (Manual) PT INR POC ABG pH POC ABG pCO2 18.6 L POC ABG pO2 121 H Sodium 146 H Potassium Chloride 110.9 H Carbon Dioxide 11 L BUN 62 H Creatinine 4.0 H Glucose 64 L POC Glucose Lactic Acid Calcium 7.6 L Phosphorus Magnesium AST ALT Alkaline Phosphatase Troponin T C-Reactive Protein Total Protein Albumin LDL Cholesterol Direct HDL Cholesterol Urine Creatinine Hepatitis C Antibody Crossmatch Crossmatch [place] 11/21/17 11/21/17 11/22/17 14:17 19:09 00:05 WBC RBC Hgb Hct MCV MCH MCHC RDW Plt Count Lymph % (Auto) [place] % (Auto) Eos % (Auto) Lymph # [place] # Eos # Baso # Seg Neutrophils % Seg Neuts % (Manual) Lymphocytes % (Manual) Monocytes % (Manual) Eosinophils % (Manual) Nucleated RBC % Seg Neutrophils # Seg Neutrophils # Man Lymphocytes # (Manual) Monocytes # (Manual) Eosinophils # (Manual) PT INR POC ABG pH POC ABG pCO2 20.0 L POC ABG pO2 Sodium Potassium Chloride Carbon Dioxide BUN Creatinine Glucose POC Glucose 127 H Lactic Acid 7.70 H* Calcium Phosphorus Magnesium AST ALT Alkaline Phosphatase Troponin T C-Reactive Protein Total Protein Albumin LDL Cholesterol Direct HDL Cholesterol Urine Creatinine Hepatitis C Antibody Crossmatch Crossmatch [place] 11/22/17 11/22/17 11/22/17 03:53 06:00 07:25 WBC RBC Hgb Hct MCV MCH MCHC RDW Plt Count Lymph % (Auto) [place] % (Auto) Eos % (Auto) Lymph # [place] # Eos # Baso # Seg Neutrophils % Seg Neuts % (Manual) Lymphocytes % (Manual) Monocytes % (Manual) Eosinophils % (Manual) Nucleated RBC % Seg Neutrophils # Seg Neutrophils # Man Lymphocytes # (Manual) Monocytes # (Manual) Eosinophils # (Manual) PT INR POC ABG pH POC ABG pCO2 22.2 L POC ABG pO2 Sodium 147 H Potassium Chloride 111.9 H Carbon Dioxide 16 L BUN 72 H Creatinine 5.1 H Glucose 181 H POC Glucose 180 H Lactic Acid Calcium 7.1 L Phosphorus Magnesium AST ALT Alkaline Phosphatase Troponin T C-Reactive Protein Total Protein Albumin LDL Cholesterol Direct HDL Cholesterol Urine Creatinine Hepatitis C Antibody Crossmatch Crossmatch [place] 11/22/17 11/22/17 11/22/17 07:25 07:25 12:05 WBC 31.4 H RBC 3.22 L Hgb 8.0 L Hct 26.7 L MCV 83 L MCH 25 L MCHC 30 L RDW 19.4 H Plt Count 602 H Lymph % (Auto) [place] % (Auto) Eos % (Auto) Lymph # [place] # Eos # Baso # Seg Neutrophils % Seg Neuts % (Manual) Lymphocytes % (Manual) Monocytes % (Manual) Eosinophils % (Manual) Nucleated RBC % Seg Neutrophils # Seg Neutrophils # Man Lymphocytes # (Manual) Monocytes # (Manual) Eosinophils # (Manual) PT INR POC ABG pH POC ABG pCO2 POC ABG pO2 Sodium Potassium Chloride Carbon Dioxide BUN Creatinine Glucose POC Glucose 182 H Lactic Acid 5.00 H* Calcium Phosphorus Magnesium AST ALT Alkaline Phosphatase Troponin T C-Reactive Protein Total Protein Albumin LDL Cholesterol Direct HDL Cholesterol Urine Creatinine Hepatitis C Antibody Crossmatch Crossmatch [place] 11/22/17 11/23/17 11/23/17 19:45 01:28 04:56 WBC RBC Hgb Hct MCV MCH MCHC RDW Plt Count Lymph % (Auto) [place] % (Auto) Eos % (Auto) Lymph # [place] # Eos # Baso # Seg Neutrophils % Seg Neuts % (Manual) Lymphocytes % (Manual) Monocytes % (Manual) Eosinophils % (Manual) Nucleated RBC % Seg Neutrophils # Seg Neutrophils # Man Lymphocytes # (Manual) Monocytes # (Manual) Eosinophils # (Manual) PT INR POC ABG pH 7.505 H POC ABG pCO2 26.3 L POC ABG pO2 Sodium Potassium Chloride Carbon Dioxide BUN Creatinine Glucose POC Glucose 165 H Lactic Acid Calcium Phosphorus Magnesium AST ALT Alkaline Phosphatase Troponin T C-Reactive Protein Total Protein Albumin LDL Cholesterol Direct HDL Cholesterol Urine Creatinine Hepatitis C Antibody Reactive A Crossmatch Crossmatch [place] 11/23/17 11/23/17 11/23/17 07:05 12:32 17:53 WBC RBC Hgb Hct MCV MCH MCHC RDW Plt Count Lymph % (Auto) [place] % (Auto) Eos % (Auto) Lymph # [place] # Eos # Baso # Seg Neutrophils % Seg Neuts % (Manual) Lymphocytes % (Manual) Monocytes % (Manual) Eosinophils % (Manual) Nucleated RBC % Seg Neutrophils # Seg Neutrophils # Man Lymphocytes # (Manual) Monocytes # (Manual) Eosinophils # (Manual) PT INR POC ABG pH POC ABG pCO2 POC ABG pO2 Sodium Potassium Chloride Carbon Dioxide 18 L BUN 61 H Creatinine 4.2 H Glucose 153 H POC Glucose 138 H 173 H Lactic Acid Calcium 7.5 L Phosphorus Magnesium AST ALT Alkaline Phosphatase Troponin T C-Reactive Protein Total Protein Albumin LDL Cholesterol Direct HDL Cholesterol Urine Creatinine Hepatitis C Antibody Crossmatch Crossmatch [place] 11/23/17 11/24/17 11/24/17 23:41 05:42 05:42 WBC 21.5 H RBC 2.48 L Hgb 6.2 L Hct 20.3 L D MCV 82 L MCH 25 L MCHC 31 L RDW 18.9 H Plt Count Lymph % (Auto) [place] % (Auto) Eos % (Auto) Lymph # [place] # Eos # Baso # Seg Neutrophils % Seg Neuts % (Manual) 94.0 H Lymphocytes % (Manual) 3.0 L Monocytes % (Manual) Eosinophils % (Manual) Nucleated RBC % Seg Neutrophils # Seg Neutrophils # Man 20.2 H Lymphocytes # (Manual) 0.6 L Monocytes # (Manual) Eosinophils # (Manual) PT INR POC ABG pH POC ABG pCO2 POC ABG pO2 Sodium 149 H Potassium 2.8 L* D Chloride 113.9 H Carbon Dioxide 19 L BUN 31 H Creatinine 2.3 H Glucose 103 H POC Glucose 133 H Lactic Acid Calcium 5.3 L* D Phosphorus Magnesium 1.30 L AST ALT Alkaline Phosphatase Troponin T C-Reactive Protein Total Protein Albumin LDL Cholesterol Direct HDL Cholesterol Urine Creatinine Hepatitis C Antibody Crossmatch Crossmatch [place] 11/24/17 11/24/17 11/24/17 05:42 08:27 08:27 WBC RBC Hgb Hct MCV MCH MCHC RDW Plt Count Lymph % (Auto) [place] % (Auto) Eos % (Auto) Lymph # [place] # Eos # Baso # Seg Neutrophils % Seg Neuts % (Manual) Lymphocytes % (Manual) Monocytes % (Manual) Eosinophils % (Manual) Nucleated RBC % Seg Neutrophils # Seg Neutrophils # Man Lymphocytes # (Manual) Monocytes # (Manual) Eosinophils # (Manual) PT INR POC ABG pH POC ABG pCO2 POC ABG pO2 Sodium Potassium Chloride Carbon Dioxide BUN Creatinine Glucose POC Glucose Lactic Acid 5.40 H* 5.20 H* Calcium Phosphorus Magnesium AST ALT Alkaline Phosphatase Troponin T C-Reactive Protein Total Protein Albumin LDL Cholesterol Direct HDL Cholesterol Urine Creatinine Hepatitis C Antibody Crossmatch See Detail Crossmatch [place] 11/24/17 11/24/17 11/24/17 12:13 17:22 21:53 WBC 23.0 H RBC 3.32 L Hgb 8.8 L Hct 27.1 L D MCV 82 L MCH 26 L MCHC RDW 17.3 H Plt Count Lymph % (Auto) [place] % (Auto) Eos % (Auto) Lymph # [place] # Eos # Baso # Seg Neutrophils % Seg Neuts % (Manual) Lymphocytes % (Manual) Monocytes % (Manual) Eosinophils % (Manual) Nucleated RBC % Seg Neutrophils # Seg Neutrophils # Man Lymphocytes # (Manual) Monocytes # (Manual) Eosinophils # (Manual) PT INR POC ABG pH POC ABG pCO2 POC ABG pO2 Sodium Potassium Chloride Carbon Dioxide BUN Creatinine Glucose POC Glucose 138 H 180 H Lactic Acid Calcium Phosphorus Magnesium AST ALT Alkaline Phosphatase Troponin T C-Reactive Protein Total Protein Albumin LDL Cholesterol Direct HDL Cholesterol Urine Creatinine Hepatitis C Antibody Crossmatch Crossmatch [place] 11/24/17 11/24/17 11/25/17 21:53 23:28 04:19 WBC RBC Hgb Hct MCV MCH MCHC RDW Plt Count Lymph % (Auto) [place] % (Auto) Eos % (Auto) Lymph # [place] # Eos # Baso # Seg Neutrophils % Seg Neuts % (Manual) Lymphocytes % (Manual) Monocytes % (Manual) Eosinophils % (Manual) Nucleated RBC % Seg Neutrophils # Seg Neutrophils # Man Lymphocytes # (Manual) Monocytes # (Manual) Eosinophils # (Manual) PT INR POC ABG pH POC ABG pCO2 POC ABG pO2 Sodium Potassium Chloride 96.3 L Carbon Dioxide BUN 28 H 31 H Creatinine 2.3 H 2.6 H Glucose 125 H 101 H POC Glucose 111 H Lactic Acid Calcium 7.5 L D 7.4 L Phosphorus Magnesium AST 170 H ALT 179 H Alkaline Phosphatase 175 H Troponin T C-Reactive Protein Total Protein 5.5 L Albumin 1.8 L LDL Cholesterol Direct HDL Cholesterol Urine Creatinine Hepatitis C Antibody Crossmatch Crossmatch [place] 11/25/17 11/25/17 11/26/17 04:19 04:19 06:29 WBC 22.5 H RBC 3.48 L Hgb 9.1 L Hct 28.3 L MCV 81 L MCH 26 L MCHC RDW 17.4 H Plt Count Lymph % (Auto) [place] % (Auto) Eos % (Auto) Lymph # [place] # Eos # Baso # Seg Neutrophils % Seg Neuts % (Manual) Lymphocytes % (Manual) Monocytes % (Manual) Eosinophils % (Manual) Nucleated RBC % Seg Neutrophils # Seg Neutrophils # Man Lymphocytes # (Manual) Monocytes # (Manual) Eosinophils # (Manual) PT 23.6 H INR 1.96 H POC ABG pH POC ABG pCO2 POC ABG pO2 Sodium Potassium Chloride Carbon Dioxide BUN 31 H Creatinine 2.6 H Glucose 101 H POC Glucose Lactic Acid Calcium 7.5 L Phosphorus Magnesium AST ALT Alkaline Phosphatase Troponin T C-Reactive Protein Total Protein Albumin LDL Cholesterol Direct HDL Cholesterol Urine Creatinine Hepatitis C Antibody Crossmatch Crossmatch [facility] 11/26/17 11/27/17 11/27/17 06:34 04:06 04:06 WBC 11.3 H RBC 3.13 L Hgb 8.4 L Hct 25.8 L MCV 82 L MCH 27 L MCHC RDW 17.7 H Plt Count Lymph % (Auto) 7.4 L [place] % (Auto) Eos % (Auto) Lymph # 0.8 L [place] # Eos # Baso # Seg Neutrophils % 83.7 H Seg Neuts % (Manual) Lymphocytes % (Manual) Monocytes % (Manual) Eosinophils % (Manual) Nucleated RBC % Seg Neutrophils # 9.5 H Seg Neutrophils # Man Lymphocytes # (Manual) Monocytes # (Manual) Eosinophils # (Manual) PT INR POC ABG pH POC ABG pCO2 POC ABG pO2 Sodium Potassium Chloride 97.9 L Carbon Dioxide BUN 43 H 29 H Creatinine 3.5 H 2.9 H Glucose POC Glucose Lactic Acid Calcium 7.5 L 8.1 L Phosphorus Magnesium AST ALT Alkaline Phosphatase Troponin T C-Reactive Protein Total Protein Albumin LDL Cholesterol Direct HDL Cholesterol Urine Creatinine Hepatitis C Antibody Crossmatch Crossmatch [facility] 11/27/17 11/28/17 11/28/17 18:11 00:16 03:50 WBC RBC Hgb Hct MCV MCH MCHC RDW Plt Count Lymph % (Auto) [place] % (Auto) Eos % (Auto) Lymph # [place] # Eos # Baso # Seg Neutrophils % Seg Neuts % (Manual) Lymphocytes % (Manual) Monocytes % (Manual) Eosinophils % (Manual) Nucleated RBC % Seg Neutrophils # Seg Neutrophils # Man Lymphocytes # (Manual) Monocytes # (Manual) Eosinophils # (Manual) PT INR POC ABG pH POC ABG pCO2 POC ABG pO2 Sodium Potassium Chloride Carbon Dioxide BUN 39 H Creatinine 4.1 H Glucose 108 H POC Glucose 110 H 124 H Lactic Acid Calcium 7.9 L Phosphorus Magnesium AST ALT Alkaline Phosphatase Troponin T C-Reactive Protein Total Protein Albumin LDL Cholesterol Direct HDL Cholesterol Urine Creatinine Hepatitis C Antibody Crossmatch Crossmatch [facility] 11/28/17 11/28/17 11/28/17 05:03 11:36 17:42 WBC RBC Hgb Hct MCV MCH MCHC RDW Plt Count Lymph % (Auto) [place] % (Auto) Eos % (Auto) Lymph # [place] # Eos # Baso # Seg Neutrophils % Seg Neuts % (Manual) Lymphocytes % (Manual) Monocytes % (Manual) Eosinophils % (Manual) Nucleated RBC % Seg Neutrophils # Seg Neutrophils # Man Lymphocytes # (Manual) Monocytes # (Manual) Eosinophils # (Manual) PT INR POC ABG pH POC ABG pCO2 POC ABG pO2 Sodium Potassium Chloride Carbon Dioxide BUN Creatinine Glucose POC Glucose 134 H 114 H 119 H Lactic Acid Calcium Phosphorus Magnesium AST ALT Alkaline Phosphatase Troponin T C-Reactive Protein Total Protein Albumin LDL Cholesterol Direct HDL Cholesterol Urine Creatinine Hepatitis C Antibody Crossmatch Crossmatch [facility] 11/29/17 11/29/17 11/29/17 00:22 05:25 05:25 WBC 12.3 H RBC 3.34 L Hgb 8.6 L Hct 27.3 L MCV 82 L MCH 26 L MCHC RDW 18.5 H Plt Count Lymph % (Auto) 3.7 L [place] % (Auto) 7.7 H Eos % (Auto) Lymph # 0.5 L [place] # 1.0 H Eos # Baso # Seg Neutrophils % 86.5 H Seg Neuts % (Manual) Lymphocytes % (Manual) Monocytes % (Manual) Eosinophils % (Manual) Nucleated RBC % Seg Neutrophils # 10.7 H Seg Neutrophils # Man Lymphocytes # (Manual) Monocytes # (Manual) Eosinophils # (Manual) PT INR POC ABG pH POC ABG pCO2 POC ABG pO2 Sodium Potassium Chloride Carbon Dioxide BUN 29 H Creatinine 3.5 H Glucose 109 H POC Glucose 137 H Lactic Acid Calcium 7.8 L Phosphorus Magnesium AST ALT Alkaline Phosphatase Troponin T C-Reactive Protein Total Protein Albumin LDL Cholesterol Direct HDL Cholesterol Urine Creatinine Hepatitis C Antibody Crossmatch Crossmatch [facility] 11/29/17 11/30/17 11/30/17 05:26 00:26 04:17 WBC RBC Hgb Hct MCV MCH MCHC RDW Plt Count Lymph % (Auto) [place] % (Auto) Eos % (Auto) Lymph # [place] # Eos # Baso # Seg Neutrophils % Seg Neuts % (Manual) Lymphocytes % (Manual) Monocytes % (Manual) Eosinophils % (Manual) Nucleated RBC % Seg Neutrophils # Seg Neutrophils # Man Lymphocytes # (Manual) Monocytes # (Manual) Eosinophils # (Manual) PT INR POC ABG pH POC ABG pCO2 POC ABG pO2 Sodium Potassium Chloride Carbon Dioxide BUN 38 H Creatinine 4.3 H Glucose 109 H POC Glucose 129 H 152 H Lactic Acid Calcium 7.8 L Phosphorus Magnesium AST ALT Alkaline Phosphatase Troponin T C-Reactive Protein Total Protein Albumin LDL Cholesterol Direct HDL Cholesterol Urine Creatinine Hepatitis C Antibody Crossmatch Crossmatch [facility] 11/30/17 11/30/17 11/30/17 12:17 16:23 23:35 WBC RBC Hgb Hct MCV MCH MCHC RDW Plt Count Lymph % (Auto) [place] % (Auto) Eos % (Auto) Lymph # [place] # Eos # Baso # Seg Neutrophils % Seg Neuts % (Manual) Lymphocytes % (Manual) Monocytes % (Manual) Eosinophils % (Manual) Nucleated RBC % Seg Neutrophils # Seg Neutrophils # Man Lymphocytes # (Manual) Monocytes # (Manual) Eosinophils # (Manual) PT INR POC ABG pH POC ABG pCO2 POC ABG pO2 Sodium Potassium Chloride Carbon Dioxide BUN Creatinine Glucose POC Glucose 170 H 114 H 122 H Lactic Acid Calcium Phosphorus Magnesium AST ALT Alkaline Phosphatase Troponin T C-Reactive Protein Total Protein Albumin LDL Cholesterol Direct HDL Cholesterol Urine Creatinine Hepatitis C Antibody Crossmatch Crossmatch [facility] 12/01/17 12/01/17 12/01/17 04:09 04:09 12:17 WBC 14.1 H RBC 3.32 L Hgb 8.6 L Hct 27.0 L MCV 81 L MCH 26 L MCHC RDW 18.7 H Plt Count Lymph % (Auto) 5.5 L [place] % (Auto) 9.7 H Eos % (Auto) Lymph # 0.8 L [place] # 1.4 H Eos # Baso # Seg Neutrophils % 82.9 H Seg Neuts % (Manual) Lymphocytes % (Manual) Monocytes % (Manual) Eosinophils % (Manual) Nucleated RBC % Seg Neutrophils # 11.7 H Seg Neutrophils # Man Lymphocytes # (Manual) Monocytes # (Manual) Eosinophils # (Manual) PT INR POC ABG pH POC ABG pCO2 POC ABG pO2 Sodium Potassium 3.4 L Chloride Carbon Dioxide BUN 21 H Creatinine 3.0 H Glucose 108 H POC Glucose 126 H Lactic Acid Calcium 8.0 L Phosphorus Magnesium AST ALT Alkaline Phosphatase Troponin T C-Reactive Protein Total Protein Albumin LDL Cholesterol Direct HDL Cholesterol Urine Creatinine Hepatitis C Antibody Crossmatch Crossmatch [facility] 12/02/17 12/03/17 12/03/17 23:46 02:52 05:54 WBC 17.2 H RBC 3.21 L Hgb 8.5 L Hct 25.8 L MCV 80 L MCH 26 L MCHC RDW 18.4 H Plt Count 128 L Lymph % (Auto) [place] % (Auto) Eos % (Auto) Lymph # [place] # Eos # Baso # Seg Neutrophils % Seg Neuts % (Manual) Lymphocytes % (Manual) Monocytes % (Manual) Eosinophils % (Manual) Nucleated RBC % Seg Neutrophils # Seg Neutrophils # Man Lymphocytes # (Manual) Monocytes # (Manual) Eosinophils # (Manual) PT INR POC ABG pH POC ABG pCO2 POC ABG pO2 Sodium Potassium Chloride Carbon Dioxide BUN Creatinine Glucose POC Glucose 125 H 107 H Lactic Acid Calcium Phosphorus Magnesium AST ALT Alkaline Phosphatase Troponin T C-Reactive Protein Total Protein Albumin LDL Cholesterol Direct HDL Cholesterol Urine Creatinine Hepatitis C Antibody Crossmatch Crossmatch [facility] 12/03/17 12/03/17 12/04/17 12:05 Unknown 12:26 WBC RBC Hgb Hct MCV MCH MCHC RDW Plt Count Lymph % (Auto) [place] % (Auto) Eos % (Auto) Lymph # [place] # Eos # Baso # Seg Neutrophils % Seg Neuts % (Manual) Lymphocytes % (Manual) Monocytes % (Manual) Eosinophils % (Manual) Nucleated RBC % Seg Neutrophils # Seg Neutrophils # Man Lymphocytes # (Manual) Monocytes # (Manual) Eosinophils # (Manual) PT INR POC ABG pH POC ABG pCO2 POC ABG pO2 Sodium Potassium Chloride Carbon Dioxide BUN 21 H Creatinine 2.8 H Glucose 113 H POC Glucose 106 H 119 H Lactic Acid Calcium Phosphorus Magnesium AST ALT Alkaline Phosphatase Troponin T C-Reactive Protein Total Protein Albumin LDL Cholesterol Direct HDL Cholesterol Urine Creatinine Hepatitis C Antibody Crossmatch Crossmatch [facility] 12/04/17 12/05/17 12/05/17 17:57 00:52 04:05 WBC RBC 2.96 L Hgb 7.7 L Hct 24.2 L MCV 82 L MCH 26 L MCHC RDW 18.8 H Plt Count 105 L Lymph % (Auto) 10.6 L [place] % (Auto) 12.1 H Eos % (Auto) 5.2 H Lymph # 1.1 L [place] # 1.3 H Eos # 0.5 H Baso # Seg Neutrophils % 71.3 H Seg Neuts % (Manual) Lymphocytes % (Manual) Monocytes % (Manual) Eosinophils % (Manual) Nucleated RBC % Seg Neutrophils # Seg Neutrophils # Man Lymphocytes # (Manual) Monocytes # (Manual) Eosinophils # (Manual) PT INR POC ABG pH POC ABG pCO2 POC ABG pO2 Sodium Potassium Chloride Carbon Dioxide BUN Creatinine Glucose POC Glucose 140 H 117 H Lactic Acid Calcium Phosphorus Magnesium AST ALT Alkaline Phosphatase Troponin T C-Reactive Protein Total Protein Albumin LDL Cholesterol Direct HDL Cholesterol Urine Creatinine Hepatitis C Antibody Crossmatch Crossmatch [facility] 12/05/17 12/05/17 12/06/17 04:05 22:50 08:18 WBC RBC 2.80 L Hgb 7.4 L Hct 23.0 L MCV 82 L MCH 27 L MCHC RDW 19.5 H Plt Count 125 L Lymph % (Auto) [place] % (Auto) Eos % (Auto) Lymph # [place] # Eos # Baso # Seg Neutrophils % Seg Neuts % (Manual) Lymphocytes % (Manual) Monocytes % (Manual) Eosinophils % (Manual) Nucleated RBC % Seg Neutrophils # Seg Neutrophils # Man Lymphocytes # (Manual) Monocytes # (Manual) Eosinophils # (Manual) PT INR POC ABG pH POC ABG pCO2 POC ABG pO2 Sodium Potassium Chloride 107.4 H Carbon Dioxide BUN Creatinine 2.5 H Glucose POC Glucose 112 H Lactic Acid Calcium 8.3 L Phosphorus Magnesium AST ALT Alkaline Phosphatase Troponin T C-Reactive Protein Total Protein Albumin LDL Cholesterol Direct HDL Cholesterol Urine Creatinine Hepatitis C Antibody Crossmatch Crossmatch [facility] 12/06/17 12/06/17 12/06/17 08:18 12:01 23:58 WBC RBC Hgb Hct MCV MCH MCHC RDW Plt Count Lymph % (Auto) [place] % (Auto) Eos % (Auto) Lymph # [place] # Eos # Baso # Seg Neutrophils % Seg Neuts % (Manual) Lymphocytes % (Manual) Monocytes % (Manual) Eosinophils % (Manual) Nucleated RBC % Seg Neutrophils # Seg Neutrophils # Man Lymphocytes # (Manual) Monocytes # (Manual) Eosinophils # (Manual) PT INR POC ABG pH POC ABG pCO2 POC ABG pO2 Sodium Potassium Chloride 108.4 H Carbon Dioxide BUN 28 H Creatinine 3.7 H Glucose 103 H POC Glucose 106 H 108 H Lactic Acid Calcium 8.0 L Phosphorus Magnesium AST ALT Alkaline Phosphatase Troponin T C-Reactive Protein Total Protein Albumin LDL Cholesterol Direct HDL Cholesterol Urine Creatinine Hepatitis C Antibody Crossmatch Crossmatch [facility] 12/07/17 12/07/17 12/07/17 05:47 05:47 18:03 WBC RBC 2.79 L Hgb 7.3 L Hct 22.8 L MCV 82 L MCH 26 L MCHC RDW 19.1 H Plt Count 101 L Lymph % (Auto) [place] % (Auto) Eos % (Auto) Lymph # [place] # Eos # Baso # Seg Neutrophils % Seg Neuts % (Manual) 72.0 H Lymphocytes % (Manual) 13.0 L Monocytes % (Manual) Eosinophils % (Manual) 9.0 H Nucleated RBC % Seg Neutrophils # Seg Neutrophils # Man Lymphocytes # (Manual) 1.1 L Monocytes # (Manual) Eosinophils # (Manual) 0.8 H PT INR POC ABG pH POC ABG pCO2 POC ABG pO2 Sodium 146 H Potassium Chloride 109.8 H Carbon Dioxide BUN 36 H Creatinine 4.0 H Glucose POC Glucose 143 H Lactic Acid Calcium 8.0 L Phosphorus Magnesium AST ALT Alkaline Phosphatase Troponin T C-Reactive Protein Total Protein Albumin LDL Cholesterol Direct HDL Cholesterol Urine Creatinine Hepatitis C Antibody Crossmatch Crossmatch [facility] 12/07/17 12/08/17 12/08/17 23:33 05:10 05:10 WBC RBC 2.91 L Hgb 7.5 L Hct 24.4 L MCV MCH 26 L MCHC 31 L RDW 19.7 H Plt Count 109 L Lymph % (Auto) [place] % (Auto) Eos % (Auto) Lymph # [place] # Eos # Baso # Seg Neutrophils % Seg Neuts % (Manual) Lymphocytes % (Manual) 11.0 L Monocytes % (Manual) Eosinophils % (Manual) 12.0 H Nucleated RBC % Seg Neutrophils # Seg Neutrophils # Man Lymphocytes # (Manual) 0.7 L Monocytes # (Manual) Eosinophils # (Manual) 0.7 H PT INR POC ABG pH POC ABG pCO2 POC ABG pO2 Sodium 147 H Potassium Chloride 110.4 H Carbon Dioxide BUN Creatinine 2.8 H Glucose POC Glucose 107 H Lactic Acid Calcium 7.8 L Phosphorus Magnesium AST ALT Alkaline Phosphatase Troponin T C-Reactive Protein Total Protein Albumin LDL Cholesterol Direct HDL Cholesterol Urine Creatinine Hepatitis C Antibody Crossmatch Crossmatch [facility] 12/09/17 12/09/17 12/09/17 04:18 04:18 12:16 WBC RBC Hgb 7.2 L Hct 23.2 L MCV MCH MCHC RDW Plt Count Lymph % (Auto) [place] % (Auto) Eos % (Auto) Lymph # [place] # Eos # Baso # Seg Neutrophils % Seg Neuts % (Manual) Lymphocytes % (Manual) Monocytes % (Manual) Eosinophils % (Manual) Nucleated RBC % Seg Neutrophils # Seg Neutrophils # Man Lymphocytes # (Manual) Monocytes # (Manual) Eosinophils # (Manual) PT INR POC ABG pH POC ABG pCO2 POC ABG pO2 Sodium 150 H Potassium Chloride 114.5 H Carbon Dioxide BUN 25 H Creatinine 3.3 H Glucose POC Glucose 142 H Lactic Acid Calcium 7.7 L Phosphorus Magnesium AST ALT Alkaline Phosphatase Troponin T C-Reactive Protein Total Protein Albumin LDL Cholesterol Direct HDL Cholesterol Urine Creatinine Hepatitis C Antibody Crossmatch Crossmatch [facility] 12/10/17 12/10/17 12/11/17 05:14 05:14 12:05 WBC RBC 2.81 L Hgb 7.4 L Hct 23.9 L MCV MCH 26 L MCHC 31 L RDW 19.1 H Plt Count 128 L Lymph % (Auto) [place] % (Auto) Eos % (Auto) Lymph # [place] # Eos # Baso # Seg Neutrophils % Seg Neuts % (Manual) 78.0 H Lymphocytes % (Manual) 8.0 L Monocytes % (Manual) Eosinophils % (Manual) 5.0 H Nucleated RBC % Seg Neutrophils # Seg Neutrophils # Man Lymphocytes # (Manual) 0.6 L Monocytes # (Manual) Eosinophils # (Manual) PT INR POC ABG pH POC ABG pCO2 POC ABG pO2 Sodium Potassium Chloride Carbon Dioxide BUN Creatinine 2.2 H Glucose POC Glucose 127 H Lactic Acid Calcium 7.8 L Phosphorus Magnesium AST ALT Alkaline Phosphatase Troponin T C-Reactive Protein Total Protein Albumin LDL Cholesterol Direct HDL Cholesterol Urine Creatinine Hepatitis C Antibody Crossmatch Crossmatch [facility] 12/11/17 12/11/17 12/11/17 15:26 18:36 23:40 WBC RBC Hgb Hct MCV MCH MCHC RDW Plt Count Lymph % (Auto) [place] % (Auto) Eos % (Auto) Lymph # [place] # Eos # Baso # Seg Neutrophils % Seg Neuts % (Manual) Lymphocytes % (Manual) Monocytes % (Manual) Eosinophils % (Manual) Nucleated RBC % Seg Neutrophils # Seg Neutrophils # Man Lymphocytes # (Manual) Monocytes # (Manual) Eosinophils # (Manual) PT INR POC ABG pH POC ABG pCO2 POC ABG pO2 Sodium Potassium 3.3 L Chloride Carbon Dioxide BUN Creatinine 1.6 H Glucose POC Glucose 106 H 110 H Lactic Acid Calcium 7.6 L Phosphorus Magnesium AST ALT Alkaline Phosphatase Troponin T C-Reactive Protein Total Protein Albumin LDL Cholesterol Direct HDL Cholesterol Urine Creatinine Hepatitis C Antibody Crossmatch Crossmatch [facility] 12/12/17 12/12/17 12/12/17 05:10 05:41 05:41 WBC RBC 3.17 L Hgb 8.1 L Hct 25.7 L MCV 81 L MCH 25 L MCHC 31 L RDW 19.2 H Plt Count Lymph % (Auto) [place] % (Auto) Eos % (Auto) Lymph # [place] # Eos # Baso # Seg Neutrophils % Seg Neuts % (Manual) 74.0 H Lymphocytes % (Manual) 6.0 L Monocytes % (Manual) Eosinophils % (Manual) 9.0 H Nucleated RBC % Seg Neutrophils # Seg Neutrophils # Man Lymphocytes # (Manual) 0.6 L Monocytes # (Manual) Eosinophils # (Manual) 0.9 H PT INR POC ABG pH POC ABG pCO2 POC ABG pO2 Sodium Potassium 3.5 L Chloride Carbon Dioxide BUN Creatinine 2.3 H Glucose 113 H POC Glucose 112 H Lactic Acid Calcium 7.5 L Phosphorus Magnesium AST ALT Alkaline Phosphatase Troponin T C-Reactive Protein Total Protein Albumin LDL Cholesterol Direct HDL Cholesterol Urine Creatinine Hepatitis C Antibody Crossmatch Crossmatch [facility] 12/13/17 12/13/17 12/13/17 06:14 12:00 17:37 WBC RBC Hgb Hct MCV MCH MCHC RDW Plt Count Lymph % (Auto) [place] % (Auto) Eos % (Auto) Lymph # [place] # Eos # Baso # Seg Neutrophils % Seg Neuts % (Manual) Lymphocytes % (Manual) Monocytes % (Manual) Eosinophils % (Manual) Nucleated RBC % Seg Neutrophils # Seg Neutrophils # Man Lymphocytes # (Manual) Monocytes # (Manual) Eosinophils # (Manual) PT INR POC ABG pH POC ABG pCO2 POC ABG pO2 Sodium Potassium Chloride Carbon Dioxide BUN Creatinine Glucose POC Glucose 130 H 133 H 136 H Lactic Acid Calcium Phosphorus Magnesium AST ALT Alkaline Phosphatase Troponin T C-Reactive Protein Total Protein Albumin LDL Cholesterol Direct HDL Cholesterol Urine Creatinine Hepatitis C Antibody Crossmatch Crossmatch [place] 12/13/17 12/14/17 12/14/17 23:39 05:11 05:11 WBC RBC Hgb Hct MCV MCH MCHC RDW Plt Count Lymph % (Auto) [place] % (Auto) Eos % (Auto) Lymph # [place] # Eos # Baso # Seg Neutrophils % Seg Neuts % (Manual) Lymphocytes % (Manual) Monocytes % (Manual) Eosinophils % (Manual) Nucleated RBC % Seg Neutrophils # Seg Neutrophils # Man Lymphocytes # (Manual) Monocytes # (Manual) Eosinophils # (Manual) PT 15.4 H INR 1.17 H POC ABG pH POC ABG pCO2 POC ABG pO2 Sodium Potassium Chloride Carbon Dioxide 21 L BUN 26 H Creatinine 2.9 H Glucose POC Glucose 108 H Lactic Acid Calcium 7.2 L Phosphorus Magnesium AST ALT Alkaline Phosphatase Troponin T C-Reactive Protein Total Protein Albumin LDL Cholesterol Direct HDL Cholesterol Urine Creatinine Hepatitis C Antibody Crossmatch Crossmatch [facility] 12/14/17 12/14/17 12/14/17 12:00 16:01 18:24 WBC 12.9 H RBC 3.25 L Hgb 8.2 L Hct 26.2 L MCV 81 L MCH 25 L MCHC 31 L RDW 19.2 H Plt Count Lymph % (Auto) [place] % (Auto) Eos % (Auto) Lymph # [place] # Eos # Baso # Seg Neutrophils % Seg Neuts % (Manual) Lymphocytes % (Manual) Monocytes % (Manual) Eosinophils % (Manual) Nucleated RBC % Seg Neutrophils # Seg Neutrophils # Man Lymphocytes # (Manual) Monocytes # (Manual) Eosinophils # (Manual) PT INR POC ABG pH POC ABG pCO2 POC ABG pO2 Sodium Potassium Chloride Carbon Dioxide BUN Creatinine Glucose POC Glucose 138 H 120 H Lactic Acid Calcium Phosphorus Magnesium AST ALT Alkaline Phosphatase Troponin T C-Reactive Protein Total Protein Albumin LDL Cholesterol Direct HDL Cholesterol Urine Creatinine Hepatitis C Antibody Crossmatch Crossmatch [facility] 12/14/17 12/14/17 12/15/17 23:29 Unknown 05:57 WBC 12.5 H RBC 2.48 L Hgb 6.0 L Hct 24.4 L MCV 79 L MCH 24 L MCHC 30 L RDW 18.5 H Plt Count 131 L Lymph % (Auto) 7.0 L [place] % (Auto) 8.9 H Eos % (Auto) 8.3 H Lymph # 0.9 L [place] # 1.1 H Eos # 1.0 H Baso # Seg Neutrophils % 75.2 H Seg Neuts % (Manual) Lymphocytes % (Manual) Monocytes % (Manual) Eosinophils % (Manual) Nucleated RBC % Seg Neutrophils # 9.4 H Seg Neutrophils # Man Lymphocytes # (Manual) Monocytes # (Manual) Eosinophils # (Manual) PT INR POC ABG pH POC ABG pCO2 POC ABG pO2 Sodium Potassium Chloride Carbon Dioxide BUN Creatinine Glucose POC Glucose 110 H 113 H Lactic Acid Calcium Phosphorus Magnesium AST ALT Alkaline Phosphatase Troponin T C-Reactive Protein Total Protein Albumin LDL Cholesterol Direct HDL Cholesterol Urine Creatinine Hepatitis C Antibody Crossmatch Crossmatch [facility] 12/15/17 12/15/17 12/15/17 11:50 13:37 17:58 WBC RBC Hgb 7.3 L Hct 23.3 L MCV MCH MCHC RDW Plt Count Lymph % (Auto) [place] % (Auto) Eos % (Auto) Lymph # [place] # Eos # Baso # Seg Neutrophils % Seg Neuts % (Manual) Lymphocytes % (Manual) Monocytes % (Manual) Eosinophils % (Manual) Nucleated RBC % Seg Neutrophils # Seg Neutrophils # Man Lymphocytes # (Manual) Monocytes # (Manual) Eosinophils # (Manual) PT INR POC ABG pH POC ABG pCO2 POC ABG pO2 Sodium Potassium Chloride Carbon Dioxide BUN Creatinine Glucose POC Glucose 106 H 110 H Lactic Acid Calcium Phosphorus Magnesium AST ALT Alkaline Phosphatase Troponin T C-Reactive Protein Total Protein Albumin LDL Cholesterol Direct HDL Cholesterol Urine Creatinine Hepatitis C Antibody Crossmatch Crossmatch [facility] 12/15/17 12/16/17 12/16/17 23:30 04:55 05:14 WBC 13.2 H RBC 2.79 L Hgb 6.9 L Hct 22.2 L MCV 80 L MCH 25 L MCHC 31 L RDW 18.8 H Plt Count Lymph % (Auto) 7.3 L [place] % (Auto) 11.0 H Eos % (Auto) 8.2 H Lymph # 1.0 L [place] # 1.4 H Eos # 1.1 H Baso # Seg Neutrophils % 72.9 H Seg Neuts % (Manual) Lymphocytes % (Manual) Monocytes % (Manual) Eosinophils % (Manual) Nucleated RBC % Seg Neutrophils # 9.6 H Seg Neutrophils # Man Lymphocytes # (Manual) Monocytes # (Manual) Eosinophils # (Manual) PT INR POC ABG pH POC ABG pCO2 POC ABG pO2 Sodium 131 L D Potassium 2.8 L* D Chloride 93.2 L Carbon Dioxide BUN 24 H Creatinine 2.0 H Glucose POC Glucose 111 H Lactic Acid Calcium 7.7 L Phosphorus Magnesium AST ALT Alkaline Phosphatase Troponin T C-Reactive Protein Total Protein Albumin LDL Cholesterol Direct HDL Cholesterol Urine Creatinine Hepatitis C Antibody Crossmatch Crossmatch [facility] 12/16/17 12/16/17 12/16/17 13:01 17:32 23:39 WBC RBC Hgb Hct MCV MCH MCHC RDW Plt Count Lymph % (Auto) [place] % (Auto) Eos % (Auto) Lymph # [place] # Eos # Baso # Seg Neutrophils % Seg Neuts % (Manual) Lymphocytes % (Manual) Monocytes % (Manual) Eosinophils % (Manual) Nucleated RBC % Seg Neutrophils # Seg Neutrophils # Man Lymphocytes # (Manual) Monocytes # (Manual) Eosinophils # (Manual) PT INR POC ABG pH POC ABG pCO2 POC ABG pO2 Sodium Potassium Chloride Carbon Dioxide BUN Creatinine Glucose POC Glucose 121 H 107 H Lactic Acid Calcium Phosphorus Magnesium AST ALT Alkaline Phosphatase Troponin T C-Reactive Protein Total Protein Albumin LDL Cholesterol Direct HDL Cholesterol Urine Creatinine Hepatitis C Antibody Crossmatch Crossmatch [facility] See Detail 12/17/17 12/17/17 12/17/17 05:08 05:08 12:03 WBC 12.9 H RBC 2.88 L Hgb 7.2 L Hct 22.6 L MCV 78 L MCH 25 L MCHC RDW 18.3 H Plt Count Lymph % (Auto) 8.0 L [place] % (Auto) 8.6 H Eos % (Auto) Lymph # 1.0 L [place] # 1.1 H Eos # Baso # Seg Neutrophils % 79.3 H Seg Neuts % (Manual) Lymphocytes % (Manual) Monocytes % (Manual) Eosinophils % (Manual) Nucleated RBC % Seg Neutrophils # 10.2 H Seg Neutrophils # Man Lymphocytes # (Manual) Monocytes # (Manual) Eosinophils # (Manual) PT INR POC ABG pH POC ABG pCO2 POC ABG pO2 Sodium Potassium 3.4 L D Chloride Carbon Dioxide BUN Creatinine Glucose 104 H POC Glucose 109 H Lactic Acid Calcium 7.6 L Phosphorus Magnesium 1.30 L AST ALT Alkaline Phosphatase 177 H Troponin T C-Reactive Protein Total Protein Albumin 2.0 L LDL Cholesterol Direct HDL Cholesterol Urine Creatinine Hepatitis C Antibody Crossmatch Crossmatch [facility] 12/17/17 12/18/17 12/18/17 23:40 00:50 00:50 WBC 22.6 H RBC 2.76 L Hgb 6.7 L Hct 21.6 L MCV 78 L MCH 24 L MCHC 31 L RDW 18.4 H Plt Count Lymph % (Auto) [place] % (Auto) Eos % (Auto) Lymph # [place] # Eos # Baso # Seg Neutrophils % Seg Neuts % (Manual) Lymphocytes % (Manual) Monocytes % (Manual) Eosinophils % (Manual) Nucleated RBC % Seg Neutrophils # Seg Neutrophils # Man Lymphocytes # (Manual) Monocytes # (Manual) Eosinophils # (Manual) PT INR POC ABG pH POC ABG pCO2 POC ABG pO2 Sodium Potassium Chloride Carbon Dioxide BUN 22 H Creatinine 1.6 H Glucose 113 H POC Glucose 120 H Lactic Acid Calcium 7.8 L Phosphorus Magnesium 1.50 L AST ALT Alkaline Phosphatase Troponin T C-Reactive Protein Total Protein Albumin LDL Cholesterol Direct HDL Cholesterol Urine Creatinine Hepatitis C Antibody Crossmatch Crossmatch [facility] 12/18/17 12/18/17 12/18/17 05:34 12:00 18:07 WBC RBC Hgb Hct MCV MCH MCHC RDW Plt Count Lymph % (Auto) [place] % (Auto) Eos % (Auto) Lymph # [place] # Eos # Baso # Seg Neutrophils % Seg Neuts % (Manual) Lymphocytes % (Manual) Monocytes % (Manual) Eosinophils % (Manual) Nucleated RBC % Seg Neutrophils # Seg Neutrophils # Man Lymphocytes # (Manual) Monocytes # (Manual) Eosinophils # (Manual) PT INR POC ABG pH POC ABG pCO2 POC ABG pO2 Sodium Potassium Chloride Carbon Dioxide BUN Creatinine Glucose POC Glucose 132 H 136 H 122 H Lactic Acid Calcium Phosphorus Magnesium AST ALT Alkaline Phosphatase Troponin T C-Reactive Protein Total Protein Albumin LDL Cholesterol Direct HDL Cholesterol Urine Creatinine Hepatitis C Antibody Crossmatch Crossmatch [facility] 12/19/17 12/19/17 12/19/17 00:24 00:24 05:17 WBC 15.4 H RBC 2.41 L Hgb 6.1 L Hct 19.0 L* MCV 79 L MCH 25 L MCHC RDW 18.5 H Plt Count Lymph % (Auto) [place] % (Auto) Eos % (Auto) Lymph # [place] # Eos # Baso # Seg Neutrophils % Seg Neuts % (Manual) Lymphocytes % (Manual) Monocytes % (Manual) Eosinophils % (Manual) Nucleated RBC % Seg Neutrophils # Seg Neutrophils # Man Lymphocytes # (Manual) Monocytes # (Manual) Eosinophils # (Manual) PT INR POC ABG pH POC ABG pCO2 POC ABG pO2 Sodium Potassium 3.2 L Chloride Carbon Dioxide BUN Creatinine Glucose 117 H POC Glucose 132 H Lactic Acid Calcium 8.2 L Phosphorus Magnesium 1.50 L AST ALT Alkaline Phosphatase Troponin T C-Reactive Protein Total Protein Albumin LDL Cholesterol Direct HDL Cholesterol Urine Creatinine Hepatitis C Antibody Crossmatch Crossmatch [place] 12/19/17 12/19/17 12/19/17 09:00 09:00 18:01 WBC 12.4 H RBC 2.86 L Hgb 7.2 L Hct 22.6 L MCV 79 L MCH 25 L MCHC RDW 17.2 H Plt Count Lymph % (Auto) 6.8 L [place] % (Auto) 12.6 H Eos % (Auto) Lymph # 0.8 L [place] # 1.6 H Eos # Baso # Seg Neutrophils % 80.1 H Seg Neuts % (Manual) Lymphocytes % (Manual) Monocytes % (Manual) Eosinophils % (Manual) Nucleated RBC % Seg Neutrophils # 10.0 H Seg Neutrophils # Man Lymphocytes # (Manual) Monocytes # (Manual) Eosinophils # (Manual) PT INR POC ABG pH POC ABG pCO2 POC ABG pO2 Sodium Potassium 3.1 L Chloride Carbon Dioxide BUN 22 H Creatinine Glucose 113 H POC Glucose 117 H Lactic Acid Calcium 8.3 L Phosphorus Magnesium AST 54 H ALT Alkaline Phosphatase 204 H Troponin T C-Reactive Protein Total Protein 5.8 L Albumin 2.0 L LDL Cholesterol Direct HDL Cholesterol Urine Creatinine Hepatitis C Antibody Crossmatch Crossmatch [facility] 12/19/17 12/20/17 12/20/17 23:49 05:53 19:00 WBC RBC 3.03 L Hgb 7.7 L Hct 23.7 L MCV 78 L MCH 25 L MCHC RDW 17.2 H Plt Count Lymph % (Auto) [place] % (Auto) Eos % (Auto) Lymph # [place] # Eos # Baso # Seg Neutrophils % Seg Neuts % (Manual) 74.0 H Lymphocytes % (Manual) 6.0 L Monocytes % (Manual) 17.0 H Eosinophils % (Manual) Nucleated RBC % Seg Neutrophils # Seg Neutrophils # Man Lymphocytes # (Manual) 0.5 L Monocytes # (Manual) 1.5 H Eosinophils # (Manual) PT INR POC ABG pH POC ABG pCO2 POC ABG pO2 Sodium Potassium Chloride Carbon Dioxide BUN Creatinine Glucose POC Glucose 125 H 124 H Lactic Acid Calcium Phosphorus Magnesium AST ALT Alkaline Phosphatase Troponin T C-Reactive Protein Total Protein Albumin LDL Cholesterol Direct HDL Cholesterol Urine Creatinine Hepatitis C Antibody Crossmatch Crossmatch [place] 12/20/17 12/21/17 12/22/17 19:00 23:54 05:07 WBC RBC Hgb Hct MCV MCH MCHC RDW Plt Count Lymph % (Auto) [place] % (Auto) Eos % (Auto) Lymph # [place] # Eos # Baso # Seg Neutrophils % Seg Neuts % (Manual) Lymphocytes % (Manual) Monocytes % (Manual) Eosinophils % (Manual) Nucleated RBC % Seg Neutrophils # Seg Neutrophils # Man Lymphocytes # (Manual) Monocytes # (Manual) Eosinophils # (Manual) PT INR POC ABG pH POC ABG pCO2 POC ABG pO2 Sodium Potassium 3.3 L 2.9 L* Chloride Carbon Dioxide BUN 37 H 43 H Creatinine Glucose 114 H POC Glucose 109 H Lactic Acid Calcium 8.3 L 7.8 L Phosphorus 1.60 L Magnesium 1.50 L AST ALT Alkaline Phosphatase Troponin T C-Reactive Protein Total Protein Albumin LDL Cholesterol Direct HDL Cholesterol Urine Creatinine Hepatitis C Antibody Crossmatch Crossmatch [place] 12/22/17 12/22/17 12/22/17 05:07 05:07 06:02 WBC 4.1 L RBC 3.09 L Hgb 7.7 L Hct 24.3 L MCV 79 L MCH 25 L MCHC RDW 17.8 H Plt Count Lymph % (Auto) [place] % (Auto) Eos % (Auto) Lymph # [place] # Eos # Baso # Seg Neutrophils % Seg Neuts % (Manual) Lymphocytes % (Manual) Monocytes % (Manual) Eosinophils % (Manual) Nucleated RBC % Seg Neutrophils # Seg Neutrophils # Man Lymphocytes # (Manual) Monocytes # (Manual) Eosinophils # (Manual) PT INR POC ABG pH POC ABG pCO2 POC ABG pO2 Sodium Potassium Chloride Carbon Dioxide BUN Creatinine Glucose POC Glucose 107 H Lactic Acid Calcium Phosphorus Magnesium 1.60 L AST ALT Alkaline Phosphatase Troponin T C-Reactive Protein Total Protein Albumin LDL Cholesterol Direct HDL Cholesterol Urine Creatinine Hepatitis C Antibody Crossmatch Crossmatch [place] 12/22/17 12/22/17 12/22/17 10:50 12:02 17:32 WBC RBC Hgb Hct MCV MCH MCHC RDW Plt Count Lymph % (Auto) [place] % (Auto) Eos % (Auto) Lymph # [place] # Eos # Baso # Seg Neutrophils % Seg Neuts % (Manual) Lymphocytes % (Manual) Monocytes % (Manual) Eosinophils % (Manual) Nucleated RBC % Seg Neutrophils # Seg Neutrophils # Man Lymphocytes # (Manual) Monocytes # (Manual) Eosinophils # (Manual) PT INR POC ABG pH POC ABG pCO2 POC ABG pO2 Sodium Potassium Chloride Carbon Dioxide BUN Creatinine Glucose POC Glucose 129 H 111 H Lactic Acid Calcium Phosphorus Magnesium AST ALT Alkaline Phosphatase Troponin T C-Reactive Protein Total Protein Albumin LDL Cholesterol Direct HDL Cholesterol Urine Creatinine 55.8 H Hepatitis C Antibody Crossmatch Crossmatch [place] 12/22/17 12/22/17 12/23/17 19:03 23:57 05:55 WBC RBC Hgb Hct MCV MCH MCHC RDW Plt Count Lymph % (Auto) [place] % (Auto) Eos % (Auto) Lymph # [place] # Eos # Baso # Seg Neutrophils % Seg Neuts % (Manual) Lymphocytes % (Manual) Monocytes % (Manual) Eosinophils % (Manual) Nucleated RBC % Seg Neutrophils # Seg Neutrophils # Man Lymphocytes # (Manual) Monocytes # (Manual) Eosinophils # (Manual) PT INR POC ABG pH POC ABG pCO2 POC ABG pO2 Sodium Potassium 3.4 L 2.9 L* Chloride Carbon Dioxide BUN 40 H Creatinine Glucose 107 H POC Glucose 128 H Lactic Acid Calcium 7.9 L Phosphorus Magnesium AST ALT Alkaline Phosphatase Troponin T C-Reactive Protein Total Protein Albumin LDL Cholesterol Direct HDL Cholesterol Urine Creatinine Hepatitis C Antibody Crossmatch Crossmatch [place] 12/23/17 12/23/17 12/23/17 05:55 05:55 11:59 WBC 3.8 L RBC 3.10 L Hgb 7.7 L Hct 25.5 L MCV 82 L MCH 25 L MCHC 30 L RDW 17.9 H Plt Count Lymph % (Auto) [place] % (Auto) Eos % (Auto) Lymph # [place] # Eos # Baso # Seg Neutrophils % Seg Neuts % (Manual) Lymphocytes % (Manual) Monocytes % (Manual) Eosinophils % (Manual) Nucleated RBC % Seg Neutrophils # Seg Neutrophils # Man Lymphocytes # (Manual) Monocytes # (Manual) Eosinophils # (Manual) PT INR POC ABG pH POC ABG pCO2 POC ABG pO2 Sodium Potassium Chloride Carbon Dioxide BUN Creatinine Glucose POC Glucose 115 H Lactic Acid Calcium Phosphorus Magnesium 1.60 L AST ALT Alkaline Phosphatase Troponin T C-Reactive Protein Total Protein Albumin LDL Cholesterol Direct HDL Cholesterol Urine Creatinine Hepatitis C Antibody Crossmatch Crossmatch [place] 12/23/17 12/24/17 12/24/17 22:48 00:29 03:17 WBC RBC Hgb Hct MCV MCH MCHC RDW Plt Count Lymph % (Auto) [place] % (Auto) Eos % (Auto) Lymph # [place] # Eos # Baso # Seg Neutrophils % Seg Neuts % (Manual) Lymphocytes % (Manual) Monocytes % (Manual) Eosinophils % (Manual) Nucleated RBC % Seg Neutrophils # Seg Neutrophils # Man Lymphocytes # (Manual) Monocytes # (Manual) Eosinophils # (Manual) PT INR POC ABG pH POC ABG pCO2 POC ABG pO2 Sodium 146 H Potassium 2.9 L* 3.4 L Chloride Carbon Dioxide BUN 36 H Creatinine 0.7 L Glucose POC Glucose 111 H Lactic Acid Calcium 7.5 L Phosphorus Magnesium 1.60 L AST 76 H ALT 59 H Alkaline Phosphatase 294 H Troponin T C-Reactive Protein Total Protein 5.8 L Albumin 2.2 L LDL Cholesterol Direct HDL Cholesterol Urine Creatinine Hepatitis C Antibody Crossmatch Crossmatch [place] 12/24/17 12/24/17 12/24/17 03:17 05:14 17:05 WBC RBC 3.03 L Hgb 7.6 L Hct 23.7 L MCV 78 L MCH 25 L MCHC RDW 17.8 H Plt Count Lymph % (Auto) [place] % (Auto) Eos % (Auto) Lymph # [place] # Eos # Baso # Seg Neutrophils % Seg Neuts % (Manual) Lymphocytes % (Manual) Monocytes % (Manual) Eosinophils % (Manual) Nucleated RBC % Seg Neutrophils # Seg Neutrophils # Man Lymphocytes # (Manual) Monocytes # (Manual) Eosinophils # (Manual) PT INR POC ABG pH POC ABG pCO2 POC ABG pO2 Sodium Potassium Chloride Carbon Dioxide BUN Creatinine Glucose POC Glucose 127 H 132 H Lactic Acid Calcium Phosphorus Magnesium AST ALT Alkaline Phosphatase Troponin T C-Reactive Protein Total Protein Albumin LDL Cholesterol Direct HDL Cholesterol Urine Creatinine Hepatitis C Antibody Crossmatch Crossmatch [place] 12/25/17 12/25/17 12/25/17 00:03 04:34 06:25 WBC RBC Hgb Hct MCV MCH MCHC RDW Plt Count Lymph % (Auto) [place] % (Auto) Eos % (Auto) Lymph # [place] # Eos # Baso # Seg Neutrophils % Seg Neuts % (Manual) Lymphocytes % (Manual) Monocytes % (Manual) Eosinophils % (Manual) Nucleated RBC % Seg Neutrophils # Seg Neutrophils # Man Lymphocytes # (Manual) Monocytes # (Manual) Eosinophils # (Manual) PT INR POC ABG pH POC ABG pCO2 POC ABG pO2 Sodium Potassium Chloride Carbon Dioxide BUN 30 H Creatinine 0.6 L Glucose 114 H POC Glucose 128 H 136 H Lactic Acid Calcium 7.5 L Phosphorus Magnesium AST 84 H ALT 82 H Alkaline Phosphatase 322 H Troponin T C-Reactive Protein Total Protein 6.0 L Albumin 2.3 L LDL Cholesterol Direct HDL Cholesterol Urine Creatinine Hepatitis C Antibody Crossmatch Crossmatch [place] 12/25/17 12/25/17 12/26/17 12:02 18:28 00:03 WBC RBC Hgb Hct MCV MCH MCHC RDW Plt Count Lymph % (Auto) [place] % (Auto) Eos % (Auto) Lymph # [place] # Eos # Baso # Seg Neutrophils % Seg Neuts % (Manual) Lymphocytes % (Manual) Monocytes % (Manual) Eosinophils % (Manual) Nucleated RBC % Seg Neutrophils # Seg Neutrophils # Man Lymphocytes # (Manual) Monocytes # (Manual) Eosinophils # (Manual) PT INR POC ABG pH POC ABG pCO2 POC ABG pO2 Sodium Potassium Chloride Carbon Dioxide BUN Creatinine Glucose POC Glucose 158 H 113 H 117 H Lactic Acid Calcium Phosphorus Magnesium AST ALT Alkaline Phosphatase Troponin T C-Reactive Protein Total Protein Albumin LDL Cholesterol Direct HDL Cholesterol Urine Creatinine Hepatitis C Antibody Crossmatch Crossmatch [place] 12/26/17 12/26/17 12/26/17 04:26 06:35 08:47 WBC RBC Hgb Hct MCV MCH MCHC RDW Plt Count Lymph % (Auto) [place] % (Auto) Eos % (Auto) Lymph # [place] # Eos # Baso # Seg Neutrophils % Seg Neuts % (Manual) Lymphocytes % (Manual) Monocytes % (Manual) Eosinophils % (Manual) Nucleated RBC % Seg Neutrophils # Seg Neutrophils # Man Lymphocytes # (Manual) Monocytes # (Manual) Eosinophils # (Manual) PT INR POC ABG pH POC ABG pCO2 POC ABG pO2 Sodium Potassium 5.4 H D 3.3 L D Chloride Carbon Dioxide 21 L BUN 39 H Creatinine 0.7 L Glucose 121 H POC Glucose 122 H Lactic Acid Calcium 7.8 L Phosphorus Magnesium AST 144 H ALT 98 H Alkaline Phosphatase 330 H Troponin T C-Reactive Protein Total Protein 6.1 L Albumin 2.1 L LDL Cholesterol Direct HDL Cholesterol Urine Creatinine Hepatitis C Antibody Crossmatch Crossmatch [place] 12/26/17 12/26/17 12/27/17 12:29 18:27 07:34 WBC RBC Hgb Hct MCV MCH MCHC RDW Plt Count Lymph % (Auto) [place] % (Auto) Eos % (Auto) Lymph # [place] # Eos # Baso # Seg Neutrophils % Seg Neuts % (Manual) Lymphocytes % (Manual) Monocytes % (Manual) Eosinophils % (Manual) Nucleated RBC % Seg Neutrophils # Seg Neutrophils # Man Lymphocytes # (Manual) Monocytes # (Manual) Eosinophils # (Manual) PT INR POC ABG pH POC ABG pCO2 POC ABG pO2 Sodium Potassium 3.1 L Chloride Carbon Dioxide BUN Creatinine 0.5 L Glucose POC Glucose 128 H 121 H Lactic Acid Calcium 7.7 L Phosphorus Magnesium AST 74 H ALT 80 H Alkaline Phosphatase 306 H Troponin T C-Reactive Protein Total Protein 6.1 L Albumin 2.1 L LDL Cholesterol Direct HDL Cholesterol Urine Creatinine Hepatitis C Antibody Crossmatch Crossmatch [place] 12/27/17 12/28/17 12/28/17 07:34 04:59 04:59 WBC 11.1 H RBC 3.00 L Hgb 7.2 L Hct 23.6 L MCV 79 L MCH 24 L MCHC 31 L RDW 18.3 H Plt Count Lymph % (Auto) 10.0 L [place] % (Auto) 10.2 H Eos % (Auto) 6.7 H Lymph # 1.1 L [place] # 1.1 H Eos # 0.7 H Baso # Seg Neutrophils % 72.1 H Seg Neuts % (Manual) Lymphocytes % (Manual) Monocytes % (Manual) Eosinophils % (Manual) Nucleated RBC % Seg Neutrophils # 8.0 H Seg Neutrophils # Man Lymphocytes # (Manual) Monocytes # (Manual) Eosinophils # (Manual) PT INR POC ABG pH POC ABG pCO2 POC ABG pO2 Sodium Potassium Chloride Carbon Dioxide BUN Creatinine 0.4 L Glucose 102 H POC Glucose Lactic Acid Calcium 7.8 L Phosphorus Magnesium 1.30 L AST 58 H ALT 62 H Alkaline Phosphatase 274 H Troponin T C-Reactive Protein Total Protein 6.0 L Albumin 2.0 L LDL Cholesterol Direct HDL Cholesterol Urine Creatinine Hepatitis C Antibody Crossmatch Crossmatch [place] 12/28/17 12/29/17 12/29/17 18:06 04:02 04:02 WBC RBC Hgb Hct MCV MCH MCHC RDW Plt Count Lymph % (Auto) [place] % (Auto) Eos % (Auto) Lymph # [place] # Eos # Baso # Seg Neutrophils % Seg Neuts % (Manual) Lymphocytes % (Manual) Monocytes % (Manual) Eosinophils % (Manual) Nucleated RBC % Seg Neutrophils # Seg Neutrophils # Man Lymphocytes # (Manual) Monocytes # (Manual) Eosinophils # (Manual) PT INR POC ABG pH POC ABG pCO2 POC ABG pO2 Sodium Potassium Chloride Carbon Dioxide BUN Creatinine 0.5 L Glucose POC Glucose 107 H Lactic Acid Calcium 7.8 L Phosphorus Magnesium 1.40 L AST 50 H ALT Alkaline Phosphatase 311 H Troponin T C-Reactive Protein Total Protein 5.9 L Albumin 2.3 L LDL Cholesterol Direct HDL Cholesterol Urine Creatinine Hepatitis C Antibody Crossmatch Crossmatch [place] 12/29/17 12/29/17 12/30/17 12:10 17:33 04:46 WBC RBC Hgb Hct MCV MCH MCHC RDW Plt Count Lymph % (Auto) [place] % (Auto) Eos % (Auto) Lymph # [place] # Eos # Baso # Seg Neutrophils % Seg Neuts % (Manual) Lymphocytes % (Manual) Monocytes % (Manual) Eosinophils % (Manual) Nucleated RBC % Seg Neutrophils # Seg Neutrophils # Man Lymphocytes # (Manual) Monocytes # (Manual) Eosinophils # (Manual) PT INR POC ABG pH POC ABG pCO2 POC ABG pO2 Sodium Potassium Chloride Carbon Dioxide BUN Creatinine 0.5 L Glucose POC Glucose 124 H 108 H Lactic Acid Calcium 8.2 L Phosphorus Magnesium AST ALT Alkaline Phosphatase 288 H Troponin T C-Reactive Protein Total Protein Albumin 2.4 L LDL Cholesterol Direct HDL Cholesterol Urine Creatinine Hepatitis C Antibody Crossmatch Crossmatch [place] 12/30/17 12/31/17 12/31/17 04:46 04:03 04:03 WBC RBC Hgb Hct MCV MCH MCHC RDW Plt Count Lymph % (Auto) [place] % (Auto) Eos % (Auto) Lymph # [place] # Eos # Baso # Seg Neutrophils % Seg Neuts % (Manual) Lymphocytes % (Manual) Monocytes % (Manual) Eosinophils % (Manual) Nucleated RBC % Seg Neutrophils # Seg Neutrophils # Man Lymphocytes # (Manual) Monocytes # (Manual) Eosinophils # (Manual) PT INR POC ABG pH POC ABG pCO2 POC ABG pO2 Sodium Potassium Chloride Carbon Dioxide BUN Creatinine 0.4 L Glucose 103 H POC Glucose Lactic Acid Calcium 8.1 L Phosphorus Magnesium 1.50 L 1.30 L AST ALT Alkaline Phosphatase Troponin T C-Reactive Protein Total Protein Albumin LDL Cholesterol Direct HDL Cholesterol Urine Creatinine Hepatitis C Antibody Crossmatch Crossmatch [place] 12/31/17 12/31/17 01/01/18 16:56 23:55 04:26 WBC RBC Hgb Hct MCV MCH MCHC RDW Plt Count Lymph % (Auto) [place] % (Auto) Eos % (Auto) Lymph # [place] # Eos # Baso # Seg Neutrophils % Seg Neuts % (Manual) Lymphocytes % (Manual) Monocytes % (Manual) Eosinophils % (Manual) Nucleated RBC % Seg Neutrophils # Seg Neutrophils # Man Lymphocytes # (Manual) Monocytes # (Manual) Eosinophils # (Manual) PT INR POC ABG pH POC ABG pCO2 POC ABG pO2 Sodium Potassium 3.5 L Chloride Carbon Dioxide BUN Creatinine 0.3 L Glucose 105 H POC Glucose 106 H 108 H Lactic Acid Calcium 7.9 L Phosphorus Magnesium AST ALT Alkaline Phosphatase Troponin T C-Reactive Protein Total Protein Albumin LDL Cholesterol Direct HDL Cholesterol Urine Creatinine Hepatitis C Antibody Crossmatch Crossmatch [place] 01/01/18 01/01/18 01/02/18 04:26 05:26 03:45 WBC RBC 3.07 L Hgb 7.6 L Hct 24.1 L MCV 78 L MCH 25 L MCHC 31 L RDW 18.2 H Plt Count Lymph % (Auto) [place] % (Auto) Eos % (Auto) Lymph # [place] # Eos # Baso # Seg Neutrophils % Seg Neuts % (Manual) 72.0 H Lymphocytes % (Manual) 13.0 L Monocytes % (Manual) Eosinophils % (Manual) 7.0 H Nucleated RBC % 1.0 H Seg Neutrophils # Seg Neutrophils # Man Lymphocytes # (Manual) Monocytes # (Manual) Eosinophils # (Manual) 0.7 H PT INR POC ABG pH POC ABG pCO2 POC ABG pO2 Sodium 134 L Potassium Chloride Carbon Dioxide BUN Creatinine 0.4 L Glucose POC Glucose 107 H Lactic Acid Calcium 8.1 L Phosphorus Magnesium AST ALT Alkaline Phosphatase Troponin T C-Reactive Protein Total Protein Albumin LDL Cholesterol Direct HDL Cholesterol Urine Creatinine Hepatitis C Antibody Crossmatch Crossmatch [place] 01/02/18 03:45 WBC 13.1 H RBC 3.17 L Hgb 7.5 L Hct 24.8 L MCV 78 L MCH 24 L MCHC 31 L RDW 18.2 H Plt Count Lymph % (Auto) 11.0 L [place] % (Auto) 8.8 H Eos % (Auto) Lymph # [place] # 1.2 H Eos # 0.5 H Baso # 0.2 H Seg Neutrophils % 74.7 H Seg Neuts % (Manual) Lymphocytes % (Manual) Monocytes % (Manual) Eosinophils % (Manual) Nucleated RBC % Seg Neutrophils # 9.8 H Seg Neutrophils # Man Lymphocytes # (Manual) Monocytes # (Manual) Eosinophils # (Manual) PT INR POC ABG pH POC ABG pCO2 POC ABG pO2 Sodium Potassium Chloride Carbon Dioxide BUN Creatinine Glucose POC Glucose Lactic Acid Calcium Phosphorus Magnesium AST ALT Alkaline Phosphatase Troponin T C-Reactive Protein Total Protein Albumin LDL Cholesterol Direct HDL Cholesterol Urine Creatinine Hepatitis C Antibody Crossmatch Crossmatch [place]
--- NOTE | 2018-01-03 12:02 | Progress Note ---
Assessment and Plan Assessment and plan: --Peritonitis: from dislodged peg tube Patient received complete course of antibiotics Multiple surgical procedures with intra-abdominal drainage placement IR and surgery evaluated the patient Continue current management, awaiting for wound healing Possible new peg placement when medically stable Continue to monitor output of the drains, will DC the drains when output clears --Acute hypoxic respiratory failure; requiring mechanical ventilation more than 96% Status post tracheostomy, continue trach care, nebulizers, oxygen --Aspiration pneumonia; received complete treatment, resolved --Acute kidney injury; secondary to ATN Requiring intermittent dialysis as needed --Chronic anemia; received total 3 units of PRBC, closely monitor H&H transfuse as needed --Hypernatremia/hypokalemia/hypomagnesemia; Closely monitor electrolytes and adjust as needed --History of carotid endarterectomy; supportive care --Metabolic encephalopathy; supportive care --Severe malnutrition; nutrition supplements and feeding --DVT prophylaxis; SCDs --Full CODE STATUS Patient is critically ill, recommend hospice Consults and recommendations noted DC planning per case management LTAC declined admission KILEY rosenthal daughter, Eugenie [phone], History Interval history: Patient Seen and examined medical records reviewed Clinically no change, vital signs noted No new events reported by the nursing staff, Noncommunicative , status post tracheostomy on T piece Hospitalist Physical - Constitutional Vitals: Temp Pulse Resp BP Pulse Ox 98.8 F 110 H 34 H 162/102 100 01/03/18 07:49 01/03/18 11:00 01/03/18 11:00 01/03/18 11:00 01/03/18 11:00 General appearance: Present: no acute distress, cachectic, disheveled, other ( tracheostomy on T piece) - EENT Eyes: Present: PERRL, EOM intact - Neck Neck: Present: supple - Respiratory Respiratory effort: normal Respiratory: bilateral: diminished, rhonchi, negative: rales, wheezing - Cardiovascular Rhythm: regular Heart Sounds: Present: S1 & S2 - Extremities Extremities: no ischemia Extremity abnormal: edema - Abdominal General gastrointestinal: soft, non-tender, non-distended, normal bowel sounds, other (drainage tube in place) - Integumentary Integumentary: Present: clear, warm - Psychiatric Psychiatric: other (non communicative) - Neurologic Neurologic: other (noncommunicative) Results - Labs CBC & Chem 7: 01/02/18 03:45 01/02/18 03:45 Labs: Laboratory Last Values WBC 13.1 K/mm3 (4.5-11.0) H 01/02/18 03:45 RBC 3.17 M/mm3 (3.65-5.03) L 01/02/18 03:45 Hgb 7.5 gm/dl (11.8-15.2) L 01/02/18 03:45 Hct 24.8 % (35.5-45.6) L 01/02/18 03:45 MCV 78 fl (84-94) L 01/02/18 03:45 MCH 24 pg (28-32) L 01/02/18 03:45 MCHC 31 % (32-34) L 01/02/18 03:45 RDW 18.2 % (13.2-15.2) H 01/02/18 03:45 Plt Count 229 K/mm3 (140-440) 01/02/18 03:45 Lymph % (Auto) 11.0 % (13.4-35.0) L 01/02/18 03:45 [place] % (Auto) 8.8 % (0.0-7.3) H 01/02/18 03:45 Eos % (Auto) 4.1 % (0.0-4.3) 01/02/18 03:45 Baso % (Auto) 1.4 % (0.0-1.8) 01/02/18 03:45 Lymph # 1.4 K/mm3 (1.2-5.4) 01/02/18 03:45 [place] # 1.2 K/mm3 (0.0-0.8) H 01/02/18 03:45 Eos # 0.5 K/mm3 (0.0-0.4) H 01/02/18 03:45 Baso # 0.2 K/mm3 (0.0-0.1) H 01/02/18 03:45 Add Manual Diff Complete 01/01/18 04:26 Total Counted 100 01/01/18 04:26 Seg Neutrophils % 74.7 % (40.0-70.0) H 01/02/18 03:45 Seg Neuts % (Manual) 72.0 % (40.0-70.0) H 01/01/18 04:26 Band Neutrophils % 0 % 01/01/18 04:26 Lymphocytes % (Manual) 13.0 % (13.4-35.0) L 01/01/18 04:26 Reactive Lymphs % (Man) 0 % 01/01/18 04:26 Monocytes % (Manual) 7.0 % (0.0-7.3) 01/01/18 04:26 Eosinophils % (Manual) 7.0 % (0.0-4.3) H 01/01/18 04:26 Basophils % (Manual) 1.0 % (0.0-1.8) 01/01/18 04:26 Metamyelocytes % 0 % 01/01/18 04:26 Myelocytes % 0 % 01/01/18 04:26 Promyelocytes % 0 % 01/01/18 04:26 Blast Cells % 0 % 01/01/18 04:26 Nucleated RBC % 1.0 % (0.0-0.9) H 01/01/18 04:26 Seg Neutrophils # 9.8 K/mm3 (1.8-7.7) H 01/02/18 03:45 Seg Neutrophils # Man 7.5 K/mm3 (1.8-7.7) 01/01/18 04:26 Band Neutrophils # 0.0 K/mm3 01/01/18 04:26 Lymphocytes # (Manual) 1.4 K/mm3 (1.2-5.4) 01/01/18 04:26 Abs React Lymphs (Man) 0.0 K/mm3 01/01/18 04:26 Monocytes # (Manual) 0.7 K/mm3 (0.0-0.8) 01/01/18 04:26 Eosinophils # (Manual) 0.7 K/mm3 (0.0-0.4) H 01/01/18 04:26 Basophils # (Manual) 0.1 K/mm3 (0.0-0.1) 01/01/18 04:26 Metamyelocytes # 0.0 K/mm3 01/01/18 04:26 Myelocytes # 0.0 K/mm3 01/01/18 04:26 Promyelocytes # 0.0 K/mm3 01/01/18 04:26 Blast Cells # 0.0 K/mm3 01/01/18 04:26 WBC Morphology Not Reportable 01/01/18 04:26 Hypersegmented Neuts Not Reportable 01/01/18 04:26 Hyposegmented Neuts Not Reportable 01/01/18 04:26 Hypogranular Neuts Not Reportable 01/01/18 04:26 Smudge Cells Not Reportable 01/01/18 04:26 Toxic Granulation Not Reportable 01/01/18 04:26 Toxic Vacuolation Not Reportable 01/01/18 04:26 Dohle Bodies Not Reportable 01/01/18 04:26 Pelger-Huet Anomaly Not Reportable 01/01/18 04:26 Evangelina Rods Not Reportable 01/01/18 04:26 Platelet Estimate Consistent w auto 01/01/18 04:26 Clumped Platelets Not Reportable 01/01/18 04:26 Plt Clumps, EDTA Not Reportable 01/01/18 04:26 Large Platelets Not Reportable 01/01/18 04:26 Giant Platelets Not Reportable 01/01/18 04:26 Platelet Satelliting Not Reportable 01/01/18 04:26 Plt Morphology Comment Not Reportable 01/01/18 04:26 RBC Morphology Not Reportable 01/01/18 04:26 Dimorphic RBCs Not Reportable 01/01/18 04:26 Polychromasia Not Reportable 01/01/18 04:26 Hypochromasia Not Reportable 01/01/18 04:26 Poikilocytosis Not Reportable 01/01/18 04:26 Anisocytosis 1+ 01/01/18 04:26 Microcytosis Not Reportable 01/01/18 04:26 Macrocytosis Not Reportable 01/01/18 04:26 Spherocytes Not Reportable 01/01/18 04:26 Pappenheimer Bodies Not Reportable 01/01/18 04:26 Sickle Cells Not Reportable 01/01/18 04:26 Target Cells Not Reportable 01/01/18 04:26 Tear Drop Cells Not Reportable 01/01/18 04:26 Ovalocytes Not Reportable 01/01/18 04:26 Stomatocytes Few 01/01/18 04:26 Helmet Cells Not Reportable 01/01/18 04:26 Dukes-Cowen Bodies Not Reportable 01/01/18 04:26 [place] Rings Not Reportable 01/01/18 04:26 [place] Cells Not Reportable 01/01/18 04:26 Bite Cells Not Reportable 01/01/18 04:26 Crenated Cell Not Reportable 01/01/18 04:26 Elliptocytes Not Reportable 01/01/18 04:26 Acanthocytes (Spur) Not Reportable 01/01/18 04:26 Rouleaux Not Reportable 01/01/18 04:26 Hemoglobin C Crystals Not Reportable 01/01/18 04:26 Schistocytes Not Reportable 01/01/18 04:26 Malaria parasites Not Reportable 01/01/18 04:26 [place] Bodies Not Reportable 01/01/18 04:26 Hem Pathologist Commnt No 01/01/18 04:26 PT 15.4 Sec. (12.2-14.9) H 12/14/17 05:11 INR 1.17 (0.87-1.13) H 12/14/17 05:11 APTT 33.8 Sec. (24.2-36.6) 11/26/17 06:29 POC ABG pH 7.505 (7.35-7.45) H 11/23/17 04:56 POC ABG pCO2 26.3 (35-45) L 11/23/17 04:56 POC ABG pO2 100 (80-105) 11/23/17 04:56 POC ABG HCO3 20.8 11/23/17 04:56 POC ABG Total CO2 22 11/23/17 04:56 POC ABG O2 Sat 98 11/23/17 04:56 POC ABG Base Excess -2 11/23/17 04:56 FiO2 30 % 11/23/17 04:56 Sodium 134 mmol/L (137-145) L 01/02/18 03:45 Potassium 3.9 mmol/L (3.6-5.0) 01/02/18 03:45 Chloride 104.5 mmol/L (98-107) 01/02/18 03:45 Carbon Dioxide 23 mmol/L (22-30) 01/02/18 03:45 Anion Gap 10 mmol/L 01/02/18 03:45 BUN 11 mg/dL (9-20) 01/02/18 03:45 Creatinine 0.4 mg/dL (0.8-1.5) L 01/02/18 03:45 Estimated GFR > 60 ml/min 01/02/18 03:45 BUN/Creatinine Ratio 28 % 01/02/18 03:45 Glucose 99 mg/dL (75-100) 01/02/18 03:45 POC Glucose 89 (70-105) 01/03/18 06:14 Lactic Acid 1.80 mmol/L (0.7-2.0) 11/27/17 04:06 Calcium 8.1 mg/dL (8.4-10.2) L 01/02/18 03:45 Phosphorus 3.40 mg/dL (2.5-4.5) 01/02/18 03:45 Magnesium 1.70 mg/dL (1.7-2.3) 01/02/18 03:45 Total Bilirubin 0.30 mg/dL (0.1-1.2) 12/30/17 04:46 AST 37 units/L (5-40) 12/30/17 04:46 ALT 48 units/L (7-56) 12/30/17 04:46 Alkaline Phosphatase 288 units/L (35-129) H 12/30/17 04:46 Total Creatine Kinase 84 units/L (55-170) 11/12/17 20:03 CK-MB (CK-2) < 1.0 ng/mL (0.0-4.0) 11/12/17 20:03 CK-MB (CK-2) Rel Index 1.1 (0-4) 11/12/17 20:03 Troponin T 0.098 ng/mL (0.00-0.029) H 11/12/17 Unknown C-Reactive Protein 25.70 mg/dL (0.00-1.30) H 11/11/17 23:20 NT-Pro-B Natriuret Pep 792.4 pg/mL (0-900) 11/11/17 23:20 Total Protein 6.6 g/dL (6.3-8.2) 12/30/17 04:46 Albumin 2.4 g/dL (3.9-5) L 12/30/17 04:46 Albumin/Globulin Ratio 0.6 % 12/30/17 04:46 Triglycerides 86 mg/dL (2-149) 11/11/17 23:20 Cholesterol 82 mg/dL (50-199) 11/11/17 23:20 LDL Cholesterol Direct 42 mg/dL (50-130) L 11/11/17 23:20 HDL Cholesterol 24 mg/dL (40-59) L 11/11/17 23:20 Cholesterol/HDL Ratio 3.41 % 11/11/17 23:20 Lipase 30 units/L (13-60) 11/11/17 23:20 Urine Color [place] (Yellow) 11/11/17 23:09 Urine Turbidity Cloudy (Clear) 11/11/17 23:09 Urine pH 5.0 (5.0-7.0) 11/11/17 23:09 Ur Specific [place] 1.025 (1.003-1.030) 11/11/17 23:09 Urine Protein 100 mg/dl mg/dL (Negative) 11/11/17 23:09 Urine Glucose (UA) 50 mg/dL (Negative) 11/11/17 23:09 Urine Ketones Neg mg/dL (Negative) 11/11/17 23:09 Urine Blood Neg (Negative) 11/11/17 23:09 Urine Nitrite Neg (Negative) 11/11/17 23:09 Urine Bilirubin Neg (Negative) 11/11/17 23:09 Urine Urobilinogen 4.0 mg/dL (<2.0) 11/11/17 23:09 Ur Leukocyte Esterase Neg (Negative) 11/11/17 23:09 Urine WBC (Auto) 5.0 /HPF (0.0-6.0) 11/11/17 23:09 Urine RBC (Auto) 4.0 /HPF (0.0-6.0) 11/11/17 23:09 Urine Bacteria (Auto) 3+ /HPF (Negative) 11/11/17 23:09 Amorphous Crystals 3+ 11/11/17 23:09 Hyaline Casts 76 /LPF 11/11/17 23:09 Urine Mucus 2+ /HPF 11/11/17 23:09 Urine Total Volume 1350 12/22/17 10:50 Urine Creatinine 55.8 mg/dL (0.1-20.0) H 12/22/17 10:50 Ur Creatinine 24 Hour 0.8 (0.8-2.8) 12/22/17 10:50 Hepatitis A IgM Ab Non-reactive (NonReactive) 11/22/17 19:45 Hep Bs Antigen Non-reactive (Negative) 11/22/17 19:45 Hep B Core IgM Ab Non-reactive (NonReactive) 11/22/17 19:45 Hepatitis C Antibody Reactive (NonReactive) A 11/22/17 19:45 Blood Type A POSITIVE 12/16/17 13:01 Antibody Screen Positive 12/16/17 13:01 SANTANA Antibody Screen Cancelled 12/16/17 13:01 Antibody Identification Cold Antibody 12/16/17 13:01 Crossmatch See Detail 12/16/17 13:01 Crossmatch Prewarmed See Detail 12/16/17 13:01
[2018-01-03] MEDS: TRANSDERM-SCOP TD SCH (14:18)
[2018-01-04] MEDS: APRESOLINE IV PRN (06:11)
[2018-01-04] MEDS: NACL 0.45% 1000 ML 1,000 ML IV SCH ×2 (06:50→19:29)
--- NOTE | 2018-01-04 09:47 | Progress Note ---
Assessment and Plan s/p Acute respiratory failure. Stable,on trach support.Minimal secretions Trach. patient Sepsis,post PEG related spillage or peritonitis.IR nevaehge x 2.No fever Stroke ESRD s/p carotid endarterectomy Recommendations Nebs as needed for chest congestion,suction Monitor s. lytes HD per nephrology. DVT prophylaxis Discussed with staff. No family at the bedside Subjective Date of service: 01/04/18 Principal diagnosis: Stroke,Acute hypoxic respiratory failure, s/p Trach Interval history: Awake, trach, non verbal Objective Vital Signs - 12hr 01/03/18 01/03/18 01/03/18 22:00 23:00 23:05 Temperature 98.7 F Pulse Rate 99 H 100 H Pulse Rate [ Right From Monitor] Respiratory 33 H 29 H Rate Blood Pressure 149/83 146/81 O2 Sat by Pulse 100 100 Oximetry O2 Sat by Pulse Oximetry [ Assessment] 01/03/18 01/04/18 01/04/18 23:38 00:00 01:00 Temperature Pulse Rate 97 H 94 H 98 H Pulse Rate [ 98 H Right From Monitor] Respiratory 29 H 27 H 20 Rate Blood Pressure 146/81 146/81 154/95 O2 Sat by Pulse 100 100 100 Oximetry O2 Sat by Pulse Oximetry [ Assessment] 01/04/18 01/04/18 01/04/18 02:00 02:45 03:00 Temperature Pulse Rate 98 H 103 H Pulse Rate [ Right From Monitor] Respiratory 26 H 33 H Rate Blood Pressure 136/91 161/95 O2 Sat by Pulse 100 100 Oximetry O2 Sat by Pulse 100 Oximetry [ Assessment] 01/04/18 01/04/18 01/04/18 03:32 04:00 05:00 Temperature 98.8 F Pulse Rate 108 H 101 H Pulse Rate [ 108 H Right From Monitor] Respiratory 32 H 27 H Rate Blood Pressure 161/95 144/90 O2 Sat by Pulse 100 100 Oximetry O2 Sat by Pulse Oximetry [ Assessment] 01/04/18 01/04/18 01/04/18 06:00 06:11 07:00 Temperature Pulse Rate 101 H 102 H 107 H Pulse Rate [ Right From Monitor] Respiratory 27 H 28 H Rate Blood Pressure 164/95 183/103 118/64 O2 Sat by Pulse 100 100 Oximetry O2 Sat by Pulse Oximetry [ Assessment] 01/04/18 01/04/18 08:00 08:08 Temperature 98.4 F Pulse Rate 113 H Pulse Rate [ Right From Monitor] Respiratory 26 H Rate Blood Pressure 118/64 O2 Sat by Pulse 100 100 Oximetry O2 Sat by Pulse 100 Oximetry [ Assessment] Constitutional: no acute distress Eyes: non-icteric ENT: oropharynx moist, other (trach in position, no bleeding) Neck: supple (trach in position), no JVD Effort: normal Ascultation: Bilateral: clear, rhonchi (occasional) Cardiovascular: regular rate and rhythm Gastrointestinal: normoactive bowel sounds, soft, non-tender, other (rectal tube in place) Integumentary: normal Extremities: no cyanosis, pink and warm, no ischemia or petechiae Neurologic: other (L hemiparesis,awake, responsive and follows my voice,RT hand bolter helper on command) Psychiatric: other (unable to assess) CBC and BMP: 01/02/18 03:45 01/02/18 03:45 ABG, PT/INR, D-dimer: ABG POC ABG pH 7.505 (7.35-7.45) H 11/23/17 04:56 POC ABG pCO2 26.3 (35-45) L 11/23/17 04:56 POC ABG pO2 100 (80-105) 11/23/17 04:56 POC ABG HCO3 20.8 11/23/17 04:56 POC ABG Total CO2 22 11/23/17 04:56 POC ABG O2 Sat 98 11/23/17 04:56 PT/INR, D-dimer PT 15.4 Sec. (12.2-14.9) H 12/14/17 05:11 INR 1.17 (0.87-1.13) H 12/14/17 05:11 Abnormal lab findings: Abnormal Labs 11/11/17 11/11/17 11/11/17 23:18 23:20 23:20 WBC RBC Hgb 10.4 L Hct 32.6 L D MCV MCH 27 L MCHC RDW 17.4 H Plt Count 105 L Lymph % (Auto) [place] % (Auto) Eos % (Auto) Lymph # [place] # Eos # Baso # Seg Neutrophils % Seg Neuts % (Manual) Lymphocytes % (Manual) 8.0 L Monocytes % (Manual) Eosinophils % (Manual) Nucleated RBC % 1.0 H Seg Neutrophils # Seg Neutrophils # Man Lymphocytes # (Manual) 0.7 L Monocytes # (Manual) Eosinophils # (Manual) PT INR POC ABG pH 7.550 H POC ABG pCO2 31.6 L POC ABG pO2 Sodium 146 H Potassium Chloride Carbon Dioxide BUN 26 H Creatinine 1.7 H D Glucose 133 H POC Glucose Lactic Acid Calcium Phosphorus Magnesium AST ALT Alkaline Phosphatase Troponin T 0.117 H* C-Reactive Protein Total Protein Albumin 2.5 L LDL Cholesterol Direct 42 L HDL Cholesterol 24 L Urine Creatinine Hepatitis C Antibody Crossmatch Crossmatch [place] 11/11/17 11/12/17 11/12/17 23:20 00:23 00:23 WBC RBC Hgb Hct MCV MCH MCHC RDW Plt Count Lymph % (Auto) [place] % (Auto) Eos % (Auto) Lymph # [place] # Eos # Baso # Seg Neutrophils % Seg Neuts % (Manual) Lymphocytes % (Manual) Monocytes % (Manual) Eosinophils % (Manual) Nucleated RBC % Seg Neutrophils # Seg Neutrophils # Man Lymphocytes # (Manual) Monocytes # (Manual) Eosinophils # (Manual) PT 16.7 H INR 1.28 H POC ABG pH POC ABG pCO2 POC ABG pO2 Sodium Potassium Chloride Carbon Dioxide BUN Creatinine Glucose POC Glucose Lactic Acid 3.20 H* Calcium Phosphorus Magnesium AST ALT Alkaline Phosphatase Troponin T C-Reactive Protein 25.70 H Total Protein Albumin LDL Cholesterol Direct HDL Cholesterol Urine Creatinine Hepatitis C Antibody Crossmatch Crossmatch [place] 11/12/17 11/12/17 11/12/17 00:46 01:27 01:27 WBC RBC Hgb Hct MCV MCH MCHC RDW Plt Count Lymph % (Auto) [place] % (Auto) Eos % (Auto) Lymph # [place] # Eos # Baso # Seg Neutrophils % Seg Neuts % (Manual) Lymphocytes % (Manual) Monocytes % (Manual) Eosinophils % (Manual) Nucleated RBC % Seg Neutrophils # Seg Neutrophils # Man Lymphocytes # (Manual) Monocytes # (Manual) Eosinophils # (Manual) PT INR POC ABG pH 7.495 H POC ABG pCO2 32.0 L POC ABG pO2 64 L Sodium Potassium Chloride Carbon Dioxide BUN Creatinine Glucose POC Glucose Lactic Acid 3.70 H* Calcium Phosphorus Magnesium AST ALT Alkaline Phosphatase Troponin T 0.096 H C-Reactive Protein Total Protein Albumin LDL Cholesterol Direct HDL Cholesterol Urine Creatinine Hepatitis C Antibody Crossmatch Crossmatch [place] 11/12/17 11/12/1711/12/18 03:21 04:50 06:27 WBC RBC Hgb Hct MCV MCH MCHC RDW Plt Count Lymph % (Auto) [place] % (Auto) Eos % (Auto) Lymph # [place] # Eos # Baso # Seg Neutrophils % Seg Neuts % (Manual) Lymphocytes % (Manual) Monocytes % (Manual) Eosinophils % (Manual) Nucleated RBC % Seg Neutrophils # Seg Neutrophils # Man Lymphocytes # (Manual) Monocytes # (Manual) Eosinophils # (Manual) PT INR POC ABG pH POC ABG pCO2 POC ABG pO2 109 H Sodium Potassium Chloride Carbon Dioxide BUN Creatinine Glucose POC Glucose Lactic Acid 3.80 H* 2.20 H* Calcium Phosphorus Magnesium AST ALT Alkaline Phosphatase Troponin T C-Reactive Protein Total Protein Albumin LDL Cholesterol Direct HDL Cholesterol Urine Creatinine Hepatitis C Antibody Crossmatch Crossmatch [place] 11/12/17 11/12/17 11/12/17 09:24 09:24 09:24 WBC RBC Hgb 10.4 L Hct 33.4 L MCV MCH MCHC RDW Plt Count Lymph % (Auto) [place] % (Auto) Eos % (Auto) Lymph # [place] # Eos # Baso # Seg Neutrophils % Seg Neuts % (Manual) Lymphocytes % (Manual) Monocytes % (Manual) Eosinophils % (Manual) Nucleated RBC % Seg Neutrophils # Seg Neutrophils # Man Lymphocytes # (Manual) Monocytes # (Manual) Eosinophils # (Manual) PT INR POC ABG pH POC ABG pCO2 POC ABG pO2 Sodium Potassium Chloride Carbon Dioxide BUN Creatinine Glucose POC Glucose Lactic Acid 2.90 H* Calcium Phosphorus Magnesium AST ALT Alkaline Phosphatase Troponin T 0.091 H C-Reactive Protein Total Protein Albumin LDL Cholesterol Direct HDL Cholesterol Urine Creatinine Hepatitis C Antibody Crossmatch Crossmatch [place] 11/12/17 11/12/17 11/12/17 12:56 20:03 Unknown WBC RBC Hgb Hct MCV MCH MCHC RDW Plt Count Lymph % (Auto) [place] % (Auto) Eos % (Auto) Lymph # [place] # Eos # Baso # Seg Neutrophils % Seg Neuts % (Manual) Lymphocytes % (Manual) Monocytes % (Manual) Eosinophils % (Manual) Nucleated RBC % Seg Neutrophils # Seg Neutrophils # Man Lymphocytes # (Manual) Monocytes # (Manual) Eosinophils # (Manual) PT INR POC ABG pH POC ABG pCO2 POC ABG pO2 Sodium Potassium Chloride Carbon Dioxide BUN Creatinine Glucose POC Glucose Lactic Acid 3.60 H* Calcium Phosphorus Magnesium AST ALT Alkaline Phosphatase Troponin T 0.102 H* 0.156 H* D C-Reactive Protein Total Protein Albumin LDL Cholesterol Direct HDL Cholesterol Urine Creatinine Hepatitis C Antibody Crossmatch Crossmatch [place] 11/12/17 11/13/17 11/13/17 Unknown 04:50 04:50 WBC 12.2 H RBC 3.51 L Hgb 9.3 L Hct 30.1 L MCV MCH 26 L MCHC 31 L RDW 18.0 H Plt Count 128 L Lymph % (Auto) 8.6 L [place] % (Auto) 11.1 H Eos % (Auto) Lymph # 1.1 L [place] # 1.4 H Eos # Baso # Seg Neutrophils % 80.1 H Seg Neuts % (Manual) Lymphocytes % (Manual) Monocytes % (Manual) Eosinophils % (Manual) Nucleated RBC % Seg Neutrophils # 9.8 H Seg Neutrophils # Man Lymphocytes # (Manual) Monocytes # (Manual) Eosinophils # (Manual) PT INR POC ABG pH POC ABG pCO2 POC ABG pO2 Sodium 149 H Potassium 5.1 H Chloride 114.4 H Carbon Dioxide 18 L BUN 52 H Creatinine 3.3 H D Glucose 129 H POC Glucose Lactic Acid Calcium 7.9 L Phosphorus Magnesium AST ALT Alkaline Phosphatase Troponin T 0.098 H C-Reactive Protein Total Protein Albumin LDL Cholesterol Direct HDL Cholesterol Urine Creatinine Hepatitis C Antibody Crossmatch Crossmatch [place] 11/13/17 11/13/17 11/14/17 04:51 09:34 04:21 WBC RBC Hgb Hct MCV MCH MCHC RDW Plt Count Lymph % (Auto) [place] % (Auto) Eos % (Auto) Lymph # [place] # Eos # Baso # Seg Neutrophils % Seg Neuts % (Manual) Lymphocytes % (Manual) Monocytes % (Manual) Eosinophils % (Manual) Nucleated RBC % Seg Neutrophils # Seg Neutrophils # Man Lymphocytes # (Manual) Monocytes # (Manual) Eosinophils # (Manual) PT INR POC ABG pH POC ABG pCO2 30.1 L 29.8 L POC ABG pO2 135 H Sodium Potassium Chloride Carbon Dioxide BUN Creatinine Glucose POC Glucose Lactic Acid 2.10 H* Calcium Phosphorus Magnesium AST ALT Alkaline Phosphatase Troponin T C-Reactive Protein Total Protein Albumin LDL Cholesterol Direct HDL Cholesterol Urine Creatinine Hepatitis C Antibody Crossmatch Crossmatch [place] 11/15/17 11/15/17 11/16/17 04:52 15:50 05:17 WBC RBC Hgb Hct MCV MCH MCHC RDW Plt Count Lymph % (Auto) [place] % (Auto) Eos % (Auto) Lymph # [place] # Eos # Baso # Seg Neutrophils % Seg Neuts % (Manual) Lymphocytes % (Manual) Monocytes % (Manual) Eosinophils % (Manual) Nucleated RBC % Seg Neutrophils # Seg Neutrophils # Man Lymphocytes # (Manual) Monocytes # (Manual) Eosinophils # (Manual) PT INR POC ABG pH POC ABG pCO2 29.5 L 31.5 L POC ABG pO2 115 H 122 H Sodium 154 H Potassium Chloride 117.9 H Carbon Dioxide 19 L BUN 87 H Creatinine 4.1 H Glucose POC Glucose Lactic Acid Calcium 8.1 L Phosphorus Magnesium AST ALT Alkaline Phosphatase Troponin T C-Reactive Protein Total Protein Albumin LDL Cholesterol Direct HDL Cholesterol Urine Creatinine Hepatitis C Antibody Crossmatch Crossmatch [place] 11/16/17 11/17/17 11/17/17 16:37 04:07 10:00 WBC 14.7 H RBC 3.23 L Hgb 8.3 L Hct 28.1 L MCV MCH 26 L MCHC 30 L RDW 18.8 H Plt Count Lymph % (Auto) [place] % (Auto) Eos % (Auto) Lymph # [place] # Eos # Baso # Seg Neutrophils % Seg Neuts % (Manual) 75 H Lymphocytes % (Manual) 8.0 L Monocytes % (Manual) Eosinophils % (Manual) Nucleated RBC % 1.0 H Seg Neutrophils # Seg Neutrophils # Man 11.0 H Lymphocytes # (Manual) Monocytes # (Manual) 0.9 H Eosinophils # (Manual) PT INR POC ABG pH POC ABG pCO2 POC ABG pO2 Sodium 153 H 155 H Potassium Chloride 117.3 H 119.4 H Carbon Dioxide 19 L 20 L BUN 90 H 89 H Creatinine 3.9 H 3.6 H Glucose 111 H 115 H POC Glucose Lactic Acid Calcium 8.1 L 8.0 L Phosphorus Magnesium AST ALT Alkaline Phosphatase Troponin T C-Reactive Protein Total Protein Albumin LDL Cholesterol Direct HDL Cholesterol Urine Creatinine Hepatitis C Antibody Crossmatch Crossmatch [place] 11/18/17 11/18/17 11/18/17 04:34 04:34 04:34 WBC 15.5 H RBC 3.13 L Hgb 8.1 L Hct 26.3 L MCV MCH 26 L MCHC 31 L RDW 18.6 H Plt Count Lymph % (Auto) [place] % (Auto) Eos % (Auto) Lymph # [place] # Eos # Baso # Seg Neutrophils % Seg Neuts % (Manual) 81.0 H Lymphocytes % (Manual) 7.0 L Monocytes % (Manual) Eosinophils % (Manual) Nucleated RBC % 1.0 H Seg Neutrophils # Seg Neutrophils # Man 12.6 H Lymphocytes # (Manual) 1.1 L Monocytes # (Manual) Eosinophils # (Manual) PT 16.7 H INR 1.30 H POC ABG pH POC ABG pCO2 POC ABG pO2 Sodium 155 H Potassium 3.2 L Chloride 121.0 H Carbon Dioxide 20 L BUN 74 H Creatinine 2.9 H Glucose 126 H POC Glucose Lactic Acid Calcium 7.9 L Phosphorus Magnesium AST ALT Alkaline Phosphatase Troponin T C-Reactive Protein Total Protein Albumin LDL Cholesterol Direct HDL Cholesterol Urine Creatinine Hepatitis C Antibody Crossmatch Crossmatch [place] 11/19/17 11/19/17 11/20/17 04:44 04:44 00:38 WBC 19.0 H 22.2 H RBC 3.20 L 3.17 L Hgb 8.4 L 7.9 L Hct 27.9 L 26.4 L MCV 83 L MCH 26 L 25 L MCHC 30 L 30 L RDW 19.1 H 18.9 H Plt Count Lymph % (Auto) [place] % (Auto) Eos % (Auto) Lymph # [place] # Eos # Baso # Seg Neutrophils % Seg Neuts % (Manual) 83.0 H Lymphocytes % (Manual) 3.0 L Monocytes % (Manual) 9.0 H Eosinophils % (Manual) Nucleated RBC % Seg Neutrophils # Seg Neutrophils # Man 18.4 H Lymphocytes # (Manual) 0.7 L Monocytes # (Manual) 2.0 H Eosinophils # (Manual) PT INR POC ABG pH POC ABG pCO2 POC ABG pO2 Sodium 152 H Potassium Chloride 117.1 H Carbon Dioxide 17 L BUN 66 H Creatinine 2.8 H Glucose 119 H POC Glucose Lactic Acid Calcium 7.8 L Phosphorus Magnesium 2.70 H AST ALT Alkaline Phosphatase Troponin T C-Reactive Protein Total Protein Albumin LDL Cholesterol Direct HDL Cholesterol Urine Creatinine Hepatitis C Antibody Crossmatch Crossmatch [place] 11/20/17 11/20/17 11/20/17 03:29 04:48 13:38 WBC RBC Hgb Hct MCV MCH MCHC RDW Plt Count Lymph % (Auto) [place] % (Auto) Eos % (Auto) Lymph # [place] # Eos # Baso # Seg Neutrophils % Seg Neuts % (Manual) Lymphocytes % (Manual) Monocytes % (Manual) Eosinophils % (Manual) Nucleated RBC % Seg Neutrophils # Seg Neutrophils # Man Lymphocytes # (Manual) Monocytes # (Manual) Eosinophils # (Manual) PT INR POC ABG pH POC ABG pCO2 29.4 L POC ABG pO2 Sodium 148 H Potassium 3.4 L Chloride 113.7 H Carbon Dioxide 18 L BUN 59 H Creatinine 2.7 H Glucose 113 H POC Glucose 128 H Lactic Acid Calcium 7.8 L Phosphorus Magnesium AST ALT Alkaline Phosphatase Troponin T C-Reactive Protein Total Protein Albumin LDL Cholesterol Direct HDL Cholesterol Urine Creatinine Hepatitis C Antibody Crossmatch Crossmatch [place] 11/20/17 11/20/17 11/21/17 17:38 23:40 00:13 WBC RBC Hgb 8.4 L Hct 28.0 L MCV MCH MCHC RDW Plt Count Lymph % (Auto) [place] % (Auto) Eos % (Auto) Lymph # [place] # Eos # Baso # Seg Neutrophils % Seg Neuts % (Manual) Lymphocytes % (Manual) Monocytes % (Manual) Eosinophils % (Manual) Nucleated RBC % Seg Neutrophils # Seg Neutrophils # Man Lymphocytes # (Manual) Monocytes # (Manual) Eosinophils # (Manual) PT INR POC ABG pH POC ABG pCO2 POC ABG pO2 Sodium Potassium Chloride Carbon Dioxide BUN Creatinine Glucose POC Glucose 115 H 145 H Lactic Acid Calcium Phosphorus Magnesium AST ALT Alkaline Phosphatase Troponin T C-Reactive Protein Total Protein Albumin LDL Cholesterol Direct HDL Cholesterol Urine Creatinine Hepatitis C Antibody Crossmatch Crossmatch [place] 11/21/17 11/21/17 11/21/17 04:30 04:30 04:58 WBC 21.0 H RBC Hgb 9.6 L Hct 32.7 L MCV MCH 25 L MCHC 29 L RDW 19.7 H Plt Count 746 H Lymph % (Auto) [place] % (Auto) Eos % (Auto) Lymph # [place] # Eos # Baso # Seg Neutrophils % Seg Neuts % (Manual) Lymphocytes % (Manual) Monocytes % (Manual) Eosinophils % (Manual) Nucleated RBC % Seg Neutrophils # Seg Neutrophils # Man Lymphocytes # (Manual) Monocytes # (Manual) Eosinophils # (Manual) PT INR POC ABG pH POC ABG pCO2 POC ABG pO2 Sodium Potassium Chloride 109.4 H Carbon Dioxide 14 L BUN 59 H Creatinine 3.0 H Glucose 137 H POC Glucose 132 H Lactic Acid Calcium 7.6 L Phosphorus Magnesium AST ALT Alkaline Phosphatase Troponin T C-Reactive Protein Total Protein Albumin LDL Cholesterol Direct HDL Cholesterol Urine Creatinine Hepatitis C Antibody Crossmatch Crossmatch [place] 11/21/17 11/21/17 11/21/17 06:30 13:43 14:17 WBC 38.2 H RBC Hgb 9.0 L Hct 32.3 L MCV MCH 25 L MCHC 28 L RDW 20.0 H Plt Count 766 H Lymph % (Auto) [place] % (Auto) Eos % (Auto) Lymph # [place] # Eos # Baso # Seg Neutrophils % Seg Neuts % (Manual) 85.0 H Lymphocytes % (Manual) 1.0 L Monocytes % (Manual) Eosinophils % (Manual) Nucleated RBC % 2.0 H Seg Neutrophils # Seg Neutrophils # Man 32.5 H Lymphocytes # (Manual) 0.4 L Monocytes # (Manual) 2.3 H Eosinophils # (Manual) PT INR POC ABG pH POC ABG pCO2 18.6 L POC ABG pO2 121 H Sodium 146 H Potassium Chloride 110.9 H Carbon Dioxide 11 L BUN 62 H Creatinine 4.0 H Glucose 64 L POC Glucose Lactic Acid Calcium 7.6 L Phosphorus Magnesium AST ALT Alkaline Phosphatase Troponin T C-Reactive Protein Total Protein Albumin LDL Cholesterol Direct HDL Cholesterol Urine Creatinine Hepatitis C Antibody Crossmatch Crossmatch [place] 11/21/17 11/21/17 11/22/17 14:17 19:09 00:05 WBC RBC Hgb Hct MCV MCH MCHC RDW Plt Count Lymph % (Auto) [place] % (Auto) Eos % (Auto) Lymph # [place] # Eos # Baso # Seg Neutrophils % Seg Neuts % (Manual) Lymphocytes % (Manual) Monocytes % (Manual) Eosinophils % (Manual) Nucleated RBC % Seg Neutrophils # Seg Neutrophils # Man Lymphocytes # (Manual) Monocytes # (Manual) Eosinophils # (Manual) PT INR POC ABG pH POC ABG pCO2 20.0 L POC ABG pO2 Sodium Potassium Chloride Carbon Dioxide BUN Creatinine Glucose POC Glucose 127 H Lactic Acid 7.70 H* Calcium Phosphorus Magnesium AST ALT Alkaline Phosphatase Troponin T C-Reactive Protein Total Protein Albumin LDL Cholesterol Direct HDL Cholesterol Urine Creatinine Hepatitis C Antibody Crossmatch Crossmatch [place] 11/22/17 11/22/1711/22/18 03:53 06:00 07:25 WBC RBC Hgb Hct MCV MCH MCHC RDW Plt Count Lymph % (Auto) [place] % (Auto) Eos % (Auto) Lymph # [place] # Eos # Baso # Seg Neutrophils % Seg Neuts % (Manual) Lymphocytes % (Manual) Monocytes % (Manual) Eosinophils % (Manual) Nucleated RBC % Seg Neutrophils # Seg Neutrophils # Man Lymphocytes # (Manual) Monocytes # (Manual) Eosinophils # (Manual) PT INR POC ABG pH POC ABG pCO2 22.2 L POC ABG pO2 Sodium 147 H Potassium Chloride 111.9 H Carbon Dioxide 16 L BUN 72 H Creatinine 5.1 H Glucose 181 H POC Glucose 180 H Lactic Acid Calcium 7.1 L Phosphorus Magnesium AST ALT Alkaline Phosphatase Troponin T C-Reactive Protein Total Protein Albumin LDL Cholesterol Direct HDL Cholesterol Urine Creatinine Hepatitis C Antibody Crossmatch Crossmatch [place] 11/22/17 11/22/17 11/22/17 07:25 07:25 12:05 WBC 31.4 H RBC 3.22 L Hgb 8.0 L Hct 26.7 L MCV 83 L MCH 25 L MCHC 30 L RDW 19.4 H Plt Count 602 H Lymph % (Auto) [place] % (Auto) Eos % (Auto) Lymph # [place] # Eos # Baso # Seg Neutrophils % Seg Neuts % (Manual) Lymphocytes % (Manual) Monocytes % (Manual) Eosinophils % (Manual) Nucleated RBC % Seg Neutrophils # Seg Neutrophils # Man Lymphocytes # (Manual) Monocytes # (Manual) Eosinophils # (Manual) PT INR POC ABG pH POC ABG pCO2 POC ABG pO2 Sodium Potassium Chloride Carbon Dioxide BUN Creatinine Glucose POC Glucose 182 H Lactic Acid 5.00 H* Calcium Phosphorus Magnesium AST ALT Alkaline Phosphatase Troponin T C-Reactive Protein Total Protein Albumin LDL Cholesterol Direct HDL Cholesterol Urine Creatinine Hepatitis C Antibody Crossmatch Crossmatch [place] 11/22/17 11/23/17 11/23/17 19:45 01:28 04:56 WBC RBC Hgb Hct MCV MCH MCHC RDW Plt Count Lymph % (Auto) [place] % (Auto) Eos % (Auto) Lymph # [place] # Eos # Baso # Seg Neutrophils % Seg Neuts % (Manual) Lymphocytes % (Manual) Monocytes % (Manual) Eosinophils % (Manual) Nucleated RBC % Seg Neutrophils # Seg Neutrophils # Man Lymphocytes # (Manual) Monocytes # (Manual) Eosinophils # (Manual) PT INR POC ABG pH 7.505 H POC ABG pCO2 26.3 L POC ABG pO2 Sodium Potassium Chloride Carbon Dioxide BUN Creatinine Glucose POC Glucose 165 H Lactic Acid Calcium Phosphorus Magnesium AST ALT Alkaline Phosphatase Troponin T C-Reactive Protein Total Protein Albumin LDL Cholesterol Direct HDL Cholesterol Urine Creatinine Hepatitis C Antibody Reactive A Crossmatch Crossmatch [place] 11/23/17 11/23/17 11/23/17 07:05 12:32 17:53 WBC RBC Hgb Hct MCV MCH MCHC RDW Plt Count Lymph % (Auto) [place] % (Auto) Eos % (Auto) Lymph # [place] # Eos # Baso # Seg Neutrophils % Seg Neuts % (Manual) Lymphocytes % (Manual) Monocytes % (Manual) Eosinophils % (Manual) Nucleated RBC % Seg Neutrophils # Seg Neutrophils # Man Lymphocytes # (Manual) Monocytes # (Manual) Eosinophils # (Manual) PT INR POC ABG pH POC ABG pCO2 POC ABG pO2 Sodium Potassium Chloride Carbon Dioxide 18 L BUN 61 H Creatinine 4.2 H Glucose 153 H POC Glucose 138 H 173 H Lactic Acid Calcium 7.5 L Phosphorus Magnesium AST ALT Alkaline Phosphatase Troponin T C-Reactive Protein Total Protein Albumin LDL Cholesterol Direct HDL Cholesterol Urine Creatinine Hepatitis C Antibody Crossmatch Crossmatch [place] 11/23/17 11/24/17 11/24/17 23:41 05:42 05:42 WBC 21.5 H RBC 2.48 L Hgb 6.2 L Hct 20.3 L D MCV 82 L MCH 25 L MCHC 31 L RDW 18.9 H Plt Count Lymph % (Auto) [place] % (Auto) Eos % (Auto) Lymph # [place] # Eos # Baso # Seg Neutrophils % Seg Neuts % (Manual) 94.0 H Lymphocytes % (Manual) 3.0 L Monocytes % (Manual) Eosinophils % (Manual) Nucleated RBC % Seg Neutrophils # Seg Neutrophils # Man 20.2 H Lymphocytes # (Manual) 0.6 L Monocytes # (Manual) Eosinophils # (Manual) PT INR POC ABG pH POC ABG pCO2 POC ABG pO2 Sodium 149 H Potassium 2.8 L* D Chloride 113.9 H Carbon Dioxide 19 L BUN 31 H Creatinine 2.3 H Glucose 103 H POC Glucose 133 H Lactic Acid Calcium 5.3 L* D Phosphorus Magnesium 1.30 L AST ALT Alkaline Phosphatase Troponin T C-Reactive Protein Total Protein Albumin LDL Cholesterol Direct HDL Cholesterol Urine Creatinine Hepatitis C Antibody Crossmatch Crossmatch [place] 11/24/17 11/24/17 11/24/17 05:42 08:27 08:27 WBC RBC Hgb Hct MCV MCH MCHC RDW Plt Count Lymph % (Auto) [place] % (Auto) Eos % (Auto) Lymph # [place] # Eos # Baso # Seg Neutrophils % Seg Neuts % (Manual) Lymphocytes % (Manual) Monocytes % (Manual) Eosinophils % (Manual) Nucleated RBC % Seg Neutrophils # Seg Neutrophils # Man Lymphocytes # (Manual) Monocytes # (Manual) Eosinophils # (Manual) PT INR POC ABG pH POC ABG pCO2 POC ABG pO2 Sodium Potassium Chloride Carbon Dioxide BUN Creatinine Glucose POC Glucose Lactic Acid 5.40 H* 5.20 H* Calcium Phosphorus Magnesium AST ALT Alkaline Phosphatase Troponin T C-Reactive Protein Total Protein Albumin LDL Cholesterol Direct HDL Cholesterol Urine Creatinine Hepatitis C Antibody Crossmatch See Detail Crossmatch [place] 11/24/17 11/24/17 11/24/17 12:13 17:22 21:53 WBC 23.0 H RBC 3.32 L Hgb 8.8 L Hct 27.1 L D MCV 82 L MCH 26 L MCHC RDW 17.3 H Plt Count Lymph % (Auto) [place] % (Auto) Eos % (Auto) Lymph # [place] # Eos # Baso # Seg Neutrophils % Seg Neuts % (Manual) Lymphocytes % (Manual) Monocytes % (Manual) Eosinophils % (Manual) Nucleated RBC % Seg Neutrophils # Seg Neutrophils # Man Lymphocytes # (Manual) Monocytes # (Manual) Eosinophils # (Manual) PT INR POC ABG pH POC ABG pCO2 POC ABG pO2 Sodium Potassium Chloride Carbon Dioxide BUN Creatinine Glucose POC Glucose 138 H 180 H Lactic Acid Calcium Phosphorus Magnesium AST ALT Alkaline Phosphatase Troponin T C-Reactive Protein Total Protein Albumin LDL Cholesterol Direct HDL Cholesterol Urine Creatinine Hepatitis C Antibody Crossmatch Crossmatch [place] 11/24/17 11/24/17 11/25/17 21:53 23:28 04:19 WBC RBC Hgb Hct MCV MCH MCHC RDW Plt Count Lymph % (Auto) [place] % (Auto) Eos % (Auto) Lymph # [place] # Eos # Baso # Seg Neutrophils % Seg Neuts % (Manual) Lymphocytes % (Manual) Monocytes % (Manual) Eosinophils % (Manual) Nucleated RBC % Seg Neutrophils # Seg Neutrophils # Man Lymphocytes # (Manual) Monocytes # (Manual) Eosinophils # (Manual) PT INR POC ABG pH POC ABG pCO2 POC ABG pO2 Sodium Potassium Chloride 96.3 L Carbon Dioxide BUN 28 H 31 H Creatinine 2.3 H 2.6 H Glucose 125 H 101 H POC Glucose 111 H Lactic Acid Calcium 7.5 L D 7.4 L Phosphorus Magnesium AST 170 H ALT 179 H Alkaline Phosphatase 175 H Troponin T C-Reactive Protein Total Protein 5.5 L Albumin 1.8 L LDL Cholesterol Direct HDL Cholesterol Urine Creatinine Hepatitis C Antibody Crossmatch Crossmatch [place] 11/25/17 11/25/17 11/26/17 04:19 04:19 06:29 WBC 22.5 H RBC 3.48 L Hgb 9.1 L Hct 28.3 L MCV 81 L MCH 26 L MCHC RDW 17.4 H Plt Count Lymph % (Auto) [place] % (Auto) Eos % (Auto) Lymph # [place] # Eos # Baso # Seg Neutrophils % Seg Neuts % (Manual) Lymphocytes % (Manual) Monocytes % (Manual) Eosinophils % (Manual) Nucleated RBC % Seg Neutrophils # Seg Neutrophils # Man Lymphocytes # (Manual) Monocytes # (Manual) Eosinophils # (Manual) PT 23.6 H INR 1.96 H POC ABG pH POC ABG pCO2 POC ABG pO2 Sodium Potassium Chloride Carbon Dioxide BUN 31 H Creatinine 2.6 H Glucose 101 H POC Glucose Lactic Acid Calcium 7.5 L Phosphorus Magnesium AST ALT Alkaline Phosphatase Troponin T C-Reactive Protein Total Protein Albumin LDL Cholesterol Direct HDL Cholesterol Urine Creatinine Hepatitis C Antibody Crossmatch Crossmatch [facility] 11/26/17 11/27/17 11/27/17 06:34 04:06 04:06 WBC 11.3 H RBC 3.13 L Hgb 8.4 L Hct 25.8 L MCV 82 L MCH 27 L MCHC RDW 17.7 H Plt Count Lymph % (Auto) 7.4 L [place] % (Auto) Eos % (Auto) Lymph # 0.8 L [place] # Eos # Baso # Seg Neutrophils % 83.7 H Seg Neuts % (Manual) Lymphocytes % (Manual) Monocytes % (Manual) Eosinophils % (Manual) Nucleated RBC % Seg Neutrophils # 9.5 H Seg Neutrophils # Man Lymphocytes # (Manual) Monocytes # (Manual) Eosinophils # (Manual) PT INR POC ABG pH POC ABG pCO2 POC ABG pO2 Sodium Potassium Chloride 97.9 L Carbon Dioxide BUN 43 H 29 H Creatinine 3.5 H 2.9 H Glucose POC Glucose Lactic Acid Calcium 7.5 L 8.1 L Phosphorus Magnesium AST ALT Alkaline Phosphatase Troponin T C-Reactive Protein Total Protein Albumin LDL Cholesterol Direct HDL Cholesterol Urine Creatinine Hepatitis C Antibody Crossmatch Crossmatch [facility] 11/27/17 11/28/17 11/28/17 18:11 00:16 03:50 WBC RBC Hgb Hct MCV MCH MCHC RDW Plt Count Lymph % (Auto) [place] % (Auto) Eos % (Auto) Lymph # [place] # Eos # Baso # Seg Neutrophils % Seg Neuts % (Manual) Lymphocytes % (Manual) Monocytes % (Manual) Eosinophils % (Manual) Nucleated RBC % Seg Neutrophils # Seg Neutrophils # Man Lymphocytes # (Manual) Monocytes # (Manual) Eosinophils # (Manual) PT INR POC ABG pH POC ABG pCO2 POC ABG pO2 Sodium Potassium Chloride Carbon Dioxide BUN 39 H Creatinine 4.1 H Glucose 108 H POC Glucose 110 H 124 H Lactic Acid Calcium 7.9 L Phosphorus Magnesium AST ALT Alkaline Phosphatase Troponin T C-Reactive Protein Total Protein Albumin LDL Cholesterol Direct HDL Cholesterol Urine Creatinine Hepatitis C Antibody Crossmatch Crossmatch [facility] 11/28/17 11/28/17 11/28/17 05:03 11:36 17:42 WBC RBC Hgb Hct MCV MCH MCHC RDW Plt Count Lymph % (Auto) [place] % (Auto) Eos % (Auto) Lymph # [place] # Eos # Baso # Seg Neutrophils % Seg Neuts % (Manual) Lymphocytes % (Manual) Monocytes % (Manual) Eosinophils % (Manual) Nucleated RBC % Seg Neutrophils # Seg Neutrophils # Man Lymphocytes # (Manual) Monocytes # (Manual) Eosinophils # (Manual) PT INR POC ABG pH POC ABG pCO2 POC ABG pO2 Sodium Potassium Chloride Carbon Dioxide BUN Creatinine Glucose POC Glucose 134 H 114 H 119 H Lactic Acid Calcium Phosphorus Magnesium AST ALT Alkaline Phosphatase Troponin T C-Reactive Protein Total Protein Albumin LDL Cholesterol Direct HDL Cholesterol Urine Creatinine Hepatitis C Antibody Crossmatch Crossmatch [facility] 11/29/17 11/29/17 11/29/17 00:22 05:25 05:25 WBC 12.3 H RBC 3.34 L Hgb 8.6 L Hct 27.3 L MCV 82 L MCH 26 L MCHC RDW 18.5 H Plt Count Lymph % (Auto) 3.7 L [place] % (Auto) 7.7 H Eos % (Auto) Lymph # 0.5 L [place] # 1.0 H Eos # Baso # Seg Neutrophils % 86.5 H Seg Neuts % (Manual) Lymphocytes % (Manual) Monocytes % (Manual) Eosinophils % (Manual) Nucleated RBC % Seg Neutrophils # 10.7 H Seg Neutrophils # Man Lymphocytes # (Manual) Monocytes # (Manual) Eosinophils # (Manual) PT INR POC ABG pH POC ABG pCO2 POC ABG pO2 Sodium Potassium Chloride Carbon Dioxide BUN 29 H Creatinine 3.5 H Glucose 109 H POC Glucose 137 H Lactic Acid Calcium 7.8 L Phosphorus Magnesium AST ALT Alkaline Phosphatase Troponin T C-Reactive Protein Total Protein Albumin LDL Cholesterol Direct HDL Cholesterol Urine Creatinine Hepatitis C Antibody Crossmatch Crossmatch [facility] 11/29/17 11/30/17 11/30/17 05:26 00:26 04:17 WBC RBC Hgb Hct MCV MCH MCHC RDW Plt Count Lymph % (Auto) [place] % (Auto) Eos % (Auto) Lymph # [place] # Eos # Baso # Seg Neutrophils % Seg Neuts % (Manual) Lymphocytes % (Manual) Monocytes % (Manual) Eosinophils % (Manual) Nucleated RBC % Seg Neutrophils # Seg Neutrophils # Man Lymphocytes # (Manual) Monocytes # (Manual) Eosinophils # (Manual) PT INR POC ABG pH POC ABG pCO2 POC ABG pO2 Sodium Potassium Chloride Carbon Dioxide BUN 38 H Creatinine 4.3 H Glucose 109 H POC Glucose 129 H 152 H Lactic Acid Calcium 7.8 L Phosphorus Magnesium AST ALT Alkaline Phosphatase Troponin T C-Reactive Protein Total Protein Albumin LDL Cholesterol Direct HDL Cholesterol Urine Creatinine Hepatitis C Antibody Crossmatch Crossmatch [facility] 11/30/17 11/30/17 11/30/17 12:17 16:23 23:35 WBC RBC Hgb Hct MCV MCH MCHC RDW Plt Count Lymph % (Auto) [place] % (Auto) Eos % (Auto) Lymph # [place] # Eos # Baso # Seg Neutrophils % Seg Neuts % (Manual) Lymphocytes % (Manual) Monocytes % (Manual) Eosinophils % (Manual) Nucleated RBC % Seg Neutrophils # Seg Neutrophils # Man Lymphocytes # (Manual) Monocytes # (Manual) Eosinophils # (Manual) PT INR POC ABG pH POC ABG pCO2 POC ABG pO2 Sodium Potassium Chloride Carbon Dioxide BUN Creatinine Glucose POC Glucose 170 H 114 H 122 H Lactic Acid Calcium Phosphorus Magnesium AST ALT Alkaline Phosphatase Troponin T C-Reactive Protein Total Protein Albumin LDL Cholesterol Direct HDL Cholesterol Urine Creatinine Hepatitis C Antibody Crossmatch Crossmatch [facility] 12/01/17 12/01/17 12/01/17 04:09 04:09 12:17 WBC 14.1 H RBC 3.32 L Hgb 8.6 L Hct 27.0 L MCV 81 L MCH 26 L MCHC RDW 18.7 H Plt Count Lymph % (Auto) 5.5 L [place] % (Auto) 9.7 H Eos % (Auto) Lymph # 0.8 L [place] # 1.4 H Eos # Baso # Seg Neutrophils % 82.9 H Seg Neuts % (Manual) Lymphocytes % (Manual) Monocytes % (Manual) Eosinophils % (Manual) Nucleated RBC % Seg Neutrophils # 11.7 H Seg Neutrophils # Man Lymphocytes # (Manual) Monocytes # (Manual) Eosinophils # (Manual) PT INR POC ABG pH POC ABG pCO2 POC ABG pO2 Sodium Potassium 3.4 L Chloride Carbon Dioxide BUN 21 H Creatinine 3.0 H Glucose 108 H POC Glucose 126 H Lactic Acid Calcium 8.0 L Phosphorus Magnesium AST ALT Alkaline Phosphatase Troponin T C-Reactive Protein Total Protein Albumin LDL Cholesterol Direct HDL Cholesterol Urine Creatinine Hepatitis C Antibody Crossmatch Crossmatch [facility] 12/02/17 12/03/17 12/03/17 23:46 02:52 05:54 WBC 17.2 H RBC 3.21 L Hgb 8.5 L Hct 25.8 L MCV 80 L MCH 26 L MCHC RDW 18.4 H Plt Count 128 L Lymph % (Auto) [place] % (Auto) Eos % (Auto) Lymph # [place] # Eos # Baso # Seg Neutrophils % Seg Neuts % (Manual) Lymphocytes % (Manual) Monocytes % (Manual) Eosinophils % (Manual) Nucleated RBC % Seg Neutrophils # Seg Neutrophils # Man Lymphocytes # (Manual) Monocytes # (Manual) Eosinophils # (Manual) PT INR POC ABG pH POC ABG pCO2 POC ABG pO2 Sodium Potassium Chloride Carbon Dioxide BUN Creatinine Glucose POC Glucose 125 H 107 H Lactic Acid Calcium Phosphorus Magnesium AST ALT Alkaline Phosphatase Troponin T C-Reactive Protein Total Protein Albumin LDL Cholesterol Direct HDL Cholesterol Urine Creatinine Hepatitis C Antibody Crossmatch Crossmatch [facility] 09/13/18 09/13/18 09/14/18 12:05 Unknown 12:26 WBC RBC Hgb Hct MCV MCH MCHC RDW Plt Count Lymph % (Auto) [place] % (Auto) Eos % (Auto) Lymph # [place] # Eos # Baso # Seg Neutrophils % Seg Neuts % (Manual) Lymphocytes % (Manual) Monocytes % (Manual) Eosinophils % (Manual) Nucleated RBC % Seg Neutrophils # Seg Neutrophils # Man Lymphocytes # (Manual) Monocytes # (Manual) Eosinophils # (Manual) PT INR POC ABG pH POC ABG pCO2 POC ABG pO2 Sodium Potassium Chloride Carbon Dioxide BUN 21 H Creatinine 2.8 H Glucose 113 H POC Glucose 106 H 119 H Lactic Acid Calcium Phosphorus Magnesium AST ALT Alkaline Phosphatase Troponin T C-Reactive Protein Total Protein Albumin LDL Cholesterol Direct HDL Cholesterol Urine Creatinine Hepatitis C Antibody Crossmatch Crossmatch [facility] 12/04/17 12/05/17 12/05/17 17:57 00:52 04:05 WBC RBC 2.96 L Hgb 7.7 L Hct 24.2 L MCV 82 L MCH 26 L MCHC RDW 18.8 H Plt Count 105 L Lymph % (Auto) 10.6 L [place] % (Auto) 12.1 H Eos % (Auto) 5.2 H Lymph # 1.1 L [place] # 1.3 H Eos # 0.5 H Baso # Seg Neutrophils % 71.3 H Seg Neuts % (Manual) Lymphocytes % (Manual) Monocytes % (Manual) Eosinophils % (Manual) Nucleated RBC % Seg Neutrophils # Seg Neutrophils # Man Lymphocytes # (Manual) Monocytes # (Manual) Eosinophils # (Manual) PT INR POC ABG pH POC ABG pCO2 POC ABG pO2 Sodium Potassium Chloride Carbon Dioxide BUN Creatinine Glucose POC Glucose 140 H 117 H Lactic Acid Calcium Phosphorus Magnesium AST ALT Alkaline Phosphatase Troponin T C-Reactive Protein Total Protein Albumin LDL Cholesterol Direct HDL Cholesterol Urine Creatinine Hepatitis C Antibody Crossmatch Crossmatch [facility] 12/05/17 12/05/17 12/06/17 04:05 22:50 08:18 WBC RBC 2.80 L Hgb 7.4 L Hct 23.0 L MCV 82 L MCH 27 L MCHC RDW 19.5 H Plt Count 125 L Lymph % (Auto) [place] % (Auto) Eos % (Auto) Lymph # [place] # Eos # Baso # Seg Neutrophils % Seg Neuts % (Manual) Lymphocytes % (Manual) Monocytes % (Manual) Eosinophils % (Manual) Nucleated RBC % Seg Neutrophils # Seg Neutrophils # Man Lymphocytes # (Manual) Monocytes # (Manual) Eosinophils # (Manual) PT INR POC ABG pH POC ABG pCO2 POC ABG pO2 Sodium Potassium Chloride 107.4 H Carbon Dioxide BUN Creatinine 2.5 H Glucose POC Glucose 112 H Lactic Acid Calcium 8.3 L Phosphorus Magnesium AST ALT Alkaline Phosphatase Troponin T C-Reactive Protein Total Protein Albumin LDL Cholesterol Direct HDL Cholesterol Urine Creatinine Hepatitis C Antibody Crossmatch Crossmatch [facility] 12/06/17 12/06/17 12/06/17 08:18 12:01 23:58 WBC RBC Hgb Hct MCV MCH MCHC RDW Plt Count Lymph % (Auto) [place] % (Auto) Eos % (Auto) Lymph # [place] # Eos # Baso # Seg Neutrophils % Seg Neuts % (Manual) Lymphocytes % (Manual) Monocytes % (Manual) Eosinophils % (Manual) Nucleated RBC % Seg Neutrophils # Seg Neutrophils # Man Lymphocytes # (Manual) Monocytes # (Manual) Eosinophils # (Manual) PT INR POC ABG pH POC ABG pCO2 POC ABG pO2 Sodium Potassium Chloride 108.4 H Carbon Dioxide BUN 28 H Creatinine 3.7 H Glucose 103 H POC Glucose 106 H 108 H Lactic Acid Calcium 8.0 L Phosphorus Magnesium AST ALT Alkaline Phosphatase Troponin T C-Reactive Protein Total Protein Albumin LDL Cholesterol Direct HDL Cholesterol Urine Creatinine Hepatitis C Antibody Crossmatch Crossmatch [facility] 12/07/17 12/07/17 12/07/17 05:47 05:47 18:03 WBC RBC 2.79 L Hgb 7.3 L Hct 22.8 L MCV 82 L MCH 26 L MCHC RDW 19.1 H Plt Count 101 L Lymph % (Auto) [place] % (Auto) Eos % (Auto) Lymph # [place] # Eos # Baso # Seg Neutrophils % Seg Neuts % (Manual) 72.0 H Lymphocytes % (Manual) 13.0 L Monocytes % (Manual) Eosinophils % (Manual) 9.0 H Nucleated RBC % Seg Neutrophils # Seg Neutrophils # Man Lymphocytes # (Manual) 1.1 L Monocytes # (Manual) Eosinophils # (Manual) 0.8 H PT INR POC ABG pH POC ABG pCO2 POC ABG pO2 Sodium 146 H Potassium Chloride 109.8 H Carbon Dioxide BUN 36 H Creatinine 4.0 H Glucose POC Glucose 143 H Lactic Acid Calcium 8.0 L Phosphorus Magnesium AST ALT Alkaline Phosphatase Troponin T C-Reactive Protein Total Protein Albumin LDL Cholesterol Direct HDL Cholesterol Urine Creatinine Hepatitis C Antibody Crossmatch Crossmatch [facility] 12/07/17 12/08/17 12/08/17 23:33 05:10 05:10 WBC RBC 2.91 L Hgb 7.5 L Hct 24.4 L MCV MCH 26 L MCHC 31 L RDW 19.7 H Plt Count 109 L Lymph % (Auto) [place] % (Auto) Eos % (Auto) Lymph # [place] # Eos # Baso # Seg Neutrophils % Seg Neuts % (Manual) Lymphocytes % (Manual) 11.0 L Monocytes % (Manual) Eosinophils % (Manual) 12.0 H Nucleated RBC % Seg Neutrophils # Seg Neutrophils # Man Lymphocytes # (Manual) 0.7 L Monocytes # (Manual) Eosinophils # (Manual) 0.7 H PT INR POC ABG pH POC ABG pCO2 POC ABG pO2 Sodium 147 H Potassium Chloride 110.4 H Carbon Dioxide BUN Creatinine 2.8 H Glucose POC Glucose 107 H Lactic Acid Calcium 7.8 L Phosphorus Magnesium AST ALT Alkaline Phosphatase Troponin T C-Reactive Protein Total Protein Albumin LDL Cholesterol Direct HDL Cholesterol Urine Creatinine Hepatitis C Antibody Crossmatch Crossmatch [facility] 12/09/17 12/09/17 12/09/17 04:18 04:18 12:16 WBC RBC Hgb 7.2 L Hct 23.2 L MCV MCH MCHC RDW Plt Count Lymph % (Auto) [place] % (Auto) Eos % (Auto) Lymph # [place] # Eos # Baso # Seg Neutrophils % Seg Neuts % (Manual) Lymphocytes % (Manual) Monocytes % (Manual) Eosinophils % (Manual) Nucleated RBC % Seg Neutrophils # Seg Neutrophils # Man Lymphocytes # (Manual) Monocytes # (Manual) Eosinophils # (Manual) PT INR POC ABG pH POC ABG pCO2 POC ABG pO2 Sodium 150 H Potassium Chloride 114.5 H Carbon Dioxide BUN 25 H Creatinine 3.3 H Glucose POC Glucose 142 H Lactic Acid Calcium 7.7 L Phosphorus Magnesium AST ALT Alkaline Phosphatase Troponin T C-Reactive Protein Total Protein Albumin LDL Cholesterol Direct HDL Cholesterol Urine Creatinine Hepatitis C Antibody Crossmatch Crossmatch [facility] 12/10/17 12/10/17 12/11/17 05:14 05:14 12:05 WBC RBC 2.81 L Hgb 7.4 L Hct 23.9 L MCV MCH 26 L MCHC 31 L RDW 19.1 H Plt Count 128 L Lymph % (Auto) [place] % (Auto) Eos % (Auto) Lymph # [place] # Eos # Baso # Seg Neutrophils % Seg Neuts % (Manual) 78.0 H Lymphocytes % (Manual) 8.0 L Monocytes % (Manual) Eosinophils % (Manual) 5.0 H Nucleated RBC % Seg Neutrophils # Seg Neutrophils # Man Lymphocytes # (Manual) 0.6 L Monocytes # (Manual) Eosinophils # (Manual) PT INR POC ABG pH POC ABG pCO2 POC ABG pO2 Sodium Potassium Chloride Carbon Dioxide BUN Creatinine 2.2 H Glucose POC Glucose 127 H Lactic Acid Calcium 7.8 L Phosphorus Magnesium AST ALT Alkaline Phosphatase Troponin T C-Reactive Protein Total Protein Albumin LDL Cholesterol Direct HDL Cholesterol Urine Creatinine Hepatitis C Antibody Crossmatch Crossmatch [facility] 12/11/17 12/11/17 12/11/17 15:26 18:36 23:40 WBC RBC Hgb Hct MCV MCH MCHC RDW Plt Count Lymph % (Auto) [place] % (Auto) Eos % (Auto) Lymph # [place] # Eos # Baso # Seg Neutrophils % Seg Neuts % (Manual) Lymphocytes % (Manual) Monocytes % (Manual) Eosinophils % (Manual) Nucleated RBC % Seg Neutrophils # Seg Neutrophils # Man Lymphocytes # (Manual) Monocytes # (Manual) Eosinophils # (Manual) PT INR POC ABG pH POC ABG pCO2 POC ABG pO2 Sodium Potassium 3.3 L Chloride Carbon Dioxide BUN Creatinine 1.6 H Glucose POC Glucose 106 H 110 H Lactic Acid Calcium 7.6 L Phosphorus Magnesium AST ALT Alkaline Phosphatase Troponin T C-Reactive Protein Total Protein Albumin LDL Cholesterol Direct HDL Cholesterol Urine Creatinine Hepatitis C Antibody Crossmatch Crossmatch [facility] 12/12/17 12/12/17 12/12/17 05:10 05:41 05:41 WBC RBC 3.17 L Hgb 8.1 L Hct 25.7 L MCV 81 L MCH 25 L MCHC 31 L RDW 19.2 H Plt Count Lymph % (Auto) [place] % (Auto) Eos % (Auto) Lymph # [place] # Eos # Baso # Seg Neutrophils % Seg Neuts % (Manual) 74.0 H Lymphocytes % (Manual) 6.0 L Monocytes % (Manual) Eosinophils % (Manual) 9.0 H Nucleated RBC % Seg Neutrophils # Seg Neutrophils # Man Lymphocytes # (Manual) 0.6 L Monocytes # (Manual) Eosinophils # (Manual) 0.9 H PT INR POC ABG pH POC ABG pCO2 POC ABG pO2 Sodium Potassium 3.5 L Chloride Carbon Dioxide BUN Creatinine 2.3 H Glucose 113 H POC Glucose 112 H Lactic Acid Calcium 7.5 L Phosphorus Magnesium AST ALT Alkaline Phosphatase Troponin T C-Reactive Protein Total Protein Albumin LDL Cholesterol Direct HDL Cholesterol Urine Creatinine Hepatitis C Antibody Crossmatch Crossmatch [facility] 12/13/17 12/13/17 12/13/17 06:14 12:00 17:37 WBC RBC Hgb Hct MCV MCH MCHC RDW Plt Count Lymph % (Auto) [place] % (Auto) Eos % (Auto) Lymph # [place] # Eos # Baso # Seg Neutrophils % Seg Neuts % (Manual) Lymphocytes % (Manual) Monocytes % (Manual) Eosinophils % (Manual) Nucleated RBC % Seg Neutrophils # Seg Neutrophils # Man Lymphocytes # (Manual) Monocytes # (Manual) Eosinophils # (Manual) PT INR POC ABG pH POC ABG pCO2 POC ABG pO2 Sodium Potassium Chloride Carbon Dioxide BUN Creatinine Glucose POC Glucose 130 H 133 H 136 H Lactic Acid Calcium Phosphorus Magnesium AST ALT Alkaline Phosphatase Troponin T C-Reactive Protein Total Protein Albumin LDL Cholesterol Direct HDL Cholesterol Urine Creatinine Hepatitis C Antibody Crossmatch Crossmatch [facility] 12/13/17 12/14/17 12/14/17 23:39 05:11 05:11 WBC RBC Hgb Hct MCV MCH MCHC RDW Plt Count Lymph % (Auto) [place] % (Auto) Eos % (Auto) Lymph # [place] # Eos # Baso # Seg Neutrophils % Seg Neuts % (Manual) Lymphocytes % (Manual) Monocytes % (Manual) Eosinophils % (Manual) Nucleated RBC % Seg Neutrophils # Seg Neutrophils # Man Lymphocytes # (Manual) Monocytes # (Manual) Eosinophils # (Manual) PT 15.4 H INR 1.17 H POC ABG pH POC ABG pCO2 POC ABG pO2 Sodium Potassium Chloride Carbon Dioxide 21 L BUN 26 H Creatinine 2.9 H Glucose POC Glucose 108 H Lactic Acid Calcium 7.2 L Phosphorus Magnesium AST ALT Alkaline Phosphatase Troponin T C-Reactive Protein Total Protein Albumin LDL Cholesterol Direct HDL Cholesterol Urine Creatinine Hepatitis C Antibody Crossmatch Crossmatch [facility] 12/14/17 12/14/17 12/14/17 12:00 16:01 18:24 WBC 12.9 H RBC 3.25 L Hgb 8.2 L Hct 26.2 L MCV 81 L MCH 25 L MCHC 31 L RDW 19.2 H Plt Count Lymph % (Auto) [place] % (Auto) Eos % (Auto) Lymph # [place] # Eos # Baso # Seg Neutrophils % Seg Neuts % (Manual) Lymphocytes % (Manual) Monocytes % (Manual) Eosinophils % (Manual) Nucleated RBC % Seg Neutrophils # Seg Neutrophils # Man Lymphocytes # (Manual) Monocytes # (Manual) Eosinophils # (Manual) PT INR POC ABG pH POC ABG pCO2 POC ABG pO2 Sodium Potassium Chloride Carbon Dioxide BUN Creatinine Glucose POC Glucose 138 H 120 H Lactic Acid Calcium Phosphorus Magnesium AST ALT Alkaline Phosphatase Troponin T C-Reactive Protein Total Protein Albumin LDL Cholesterol Direct HDL Cholesterol Urine Creatinine Hepatitis C Antibody Crossmatch Crossmatch [facility] 12/14/17 12/14/17 12/15/17 23:29 Unknown 05:57 WBC 12.5 H RBC 2.48 L Hgb 6.0 L Hct 24.4 L MCV 79 L MCH 24 L MCHC 30 L RDW 18.5 H Plt Count 131 L Lymph % (Auto) 7.0 L [place] % (Auto) 8.9 H Eos % (Auto) 8.3 H Lymph # 0.9 L [place] # 1.1 H Eos # 1.0 H Baso # Seg Neutrophils % 75.2 H Seg Neuts % (Manual) Lymphocytes % (Manual) Monocytes % (Manual) Eosinophils % (Manual) Nucleated RBC % Seg Neutrophils # 9.4 H Seg Neutrophils # Man Lymphocytes # (Manual) Monocytes # (Manual) Eosinophils # (Manual) PT INR POC ABG pH POC ABG pCO2 POC ABG pO2 Sodium Potassium Chloride Carbon Dioxide BUN Creatinine Glucose POC Glucose 110 H 113 H Lactic Acid Calcium Phosphorus Magnesium AST ALT Alkaline Phosphatase Troponin T C-Reactive Protein Total Protein Albumin LDL Cholesterol Direct HDL Cholesterol Urine Creatinine Hepatitis C Antibody Crossmatch Crossmatch [facility] 12/15/17 12/15/17 12/15/17 11:50 13:37 17:58 WBC RBC Hgb 7.3 L Hct 23.3 L MCV MCH MCHC RDW Plt Count Lymph % (Auto) [place] % (Auto) Eos % (Auto) Lymph # [place] # Eos # Baso # Seg Neutrophils % Seg Neuts % (Manual) Lymphocytes % (Manual) Monocytes % (Manual) Eosinophils % (Manual) Nucleated RBC % Seg Neutrophils # Seg Neutrophils # Man Lymphocytes # (Manual) Monocytes # (Manual) Eosinophils # (Manual) PT INR POC ABG pH POC ABG pCO2 POC ABG pO2 Sodium Potassium Chloride Carbon Dioxide BUN Creatinine Glucose POC Glucose 106 H 110 H Lactic Acid Calcium Phosphorus Magnesium AST ALT Alkaline Phosphatase Troponin T C-Reactive Protein Total Protein Albumin LDL Cholesterol Direct HDL Cholesterol Urine Creatinine Hepatitis C Antibody Crossmatch Crossmatch [facility] 12/15/17 12/16/17 12/16/17 23:30 04:55 05:14 WBC 13.2 H RBC 2.79 L Hgb 6.9 L Hct 22.2 L MCV 80 L MCH 25 L MCHC 31 L RDW 18.8 H Plt Count Lymph % (Auto) 7.3 L [place] % (Auto) 11.0 H Eos % (Auto) 8.2 H Lymph # 1.0 L [place] # 1.4 H Eos # 1.1 H Baso # Seg Neutrophils % 72.9 H Seg Neuts % (Manual) Lymphocytes % (Manual) Monocytes % (Manual) Eosinophils % (Manual) Nucleated RBC % Seg Neutrophils # 9.6 H Seg Neutrophils # Man Lymphocytes # (Manual) Monocytes # (Manual) Eosinophils # (Manual) PT INR POC ABG pH POC ABG pCO2 POC ABG pO2 Sodium 131 L D Potassium 2.8 L* D Chloride 93.2 L Carbon Dioxide BUN 24 H Creatinine 2.0 H Glucose POC Glucose 111 H Lactic Acid Calcium 7.7 L Phosphorus Magnesium AST ALT Alkaline Phosphatase Troponin T C-Reactive Protein Total Protein Albumin LDL Cholesterol Direct HDL Cholesterol Urine Creatinine Hepatitis C Antibody Crossmatch Crossmatch [facility] 12/16/17 12/16/17 12/16/17 13:01 17:32 23:39 WBC RBC Hgb Hct MCV MCH MCHC RDW Plt Count Lymph % (Auto) [place] % (Auto) Eos % (Auto) Lymph # [place] # Eos # Baso # Seg Neutrophils % Seg Neuts % (Manual) Lymphocytes % (Manual) Monocytes % (Manual) Eosinophils % (Manual) Nucleated RBC % Seg Neutrophils # Seg Neutrophils # Man Lymphocytes # (Manual) Monocytes # (Manual) Eosinophils # (Manual) PT INR POC ABG pH POC ABG pCO2 POC ABG pO2 Sodium Potassium Chloride Carbon Dioxide BUN Creatinine Glucose POC Glucose 121 H 107 H Lactic Acid Calcium Phosphorus Magnesium AST ALT Alkaline Phosphatase Troponin T C-Reactive Protein Total Protein Albumin LDL Cholesterol Direct HDL Cholesterol Urine Creatinine Hepatitis C Antibody Crossmatch Crossmatch [facility] See Detail 12/17/17 12/17/17 12/17/17 05:08 05:08 12:03 WBC 12.9 H RBC 2.88 L Hgb 7.2 L Hct 22.6 L MCV 78 L MCH 25 L MCHC RDW 18.3 H Plt Count Lymph % (Auto) 8.0 L [place] % (Auto) 8.6 H Eos % (Auto) Lymph # 1.0 L [place] # 1.1 H Eos # Baso # Seg Neutrophils % 79.3 H Seg Neuts % (Manual) Lymphocytes % (Manual) Monocytes % (Manual) Eosinophils % (Manual) Nucleated RBC % Seg Neutrophils # 10.2 H Seg Neutrophils # Man Lymphocytes # (Manual) Monocytes # (Manual) Eosinophils # (Manual) PT INR POC ABG pH POC ABG pCO2 POC ABG pO2 Sodium Potassium 3.4 L D Chloride Carbon Dioxide BUN Creatinine Glucose 104 H POC Glucose 109 H Lactic Acid Calcium 7.6 L Phosphorus Magnesium 1.30 L AST ALT Alkaline Phosphatase 177 H Troponin T C-Reactive Protein Total Protein Albumin 2.0 L LDL Cholesterol Direct HDL Cholesterol Urine Creatinine Hepatitis C Antibody Crossmatch Crossmatch [facility] 12/17/17 12/18/17 12/18/17 23:40 00:50 00:50 WBC 22.6 H RBC 2.76 L Hgb 6.7 L Hct 21.6 L MCV 78 L MCH 24 L MCHC 31 L RDW 18.4 H Plt Count Lymph % (Auto) [place] % (Auto) Eos % (Auto) Lymph # [place] # Eos # Baso # Seg Neutrophils % Seg Neuts % (Manual) Lymphocytes % (Manual) Monocytes % (Manual) Eosinophils % (Manual) Nucleated RBC % Seg Neutrophils # Seg Neutrophils # Man Lymphocytes # (Manual) Monocytes # (Manual) Eosinophils # (Manual) PT INR POC ABG pH POC ABG pCO2 POC ABG pO2 Sodium Potassium Chloride Carbon Dioxide BUN 22 H Creatinine 1.6 H Glucose 113 H POC Glucose 120 H Lactic Acid Calcium 7.8 L Phosphorus Magnesium 1.50 L AST ALT Alkaline Phosphatase Troponin T C-Reactive Protein Total Protein Albumin LDL Cholesterol Direct HDL Cholesterol Urine Creatinine Hepatitis C Antibody Crossmatch Crossmatch [facility] 12/18/17 12/18/17 12/18/17 05:34 12:00 18:07 WBC RBC Hgb Hct MCV MCH MCHC RDW Plt Count Lymph % (Auto) [place] % (Auto) Eos % (Auto) Lymph # [place] # Eos # Baso # Seg Neutrophils % Seg Neuts % (Manual) Lymphocytes % (Manual) Monocytes % (Manual) Eosinophils % (Manual) Nucleated RBC % Seg Neutrophils # Seg Neutrophils # Man Lymphocytes # (Manual) Monocytes # (Manual) Eosinophils # (Manual) PT INR POC ABG pH POC ABG pCO2 POC ABG pO2 Sodium Potassium Chloride Carbon Dioxide BUN Creatinine Glucose POC Glucose 132 H 136 H 122 H Lactic Acid Calcium Phosphorus Magnesium AST ALT Alkaline Phosphatase Troponin T C-Reactive Protein Total Protein Albumin LDL Cholesterol Direct HDL Cholesterol Urine Creatinine Hepatitis C Antibody Crossmatch Crossmatch [facility] 12/19/17 12/19/17 12/19/17 00:24 00:24 05:17 WBC 15.4 H RBC 2.41 L Hgb 6.1 L Hct 19.0 L* MCV 79 L MCH 25 L MCHC RDW 18.5 H Plt Count Lymph % (Auto) [place] % (Auto) Eos % (Auto) Lymph # [place] # Eos # Baso # Seg Neutrophils % Seg Neuts % (Manual) Lymphocytes % (Manual) Monocytes % (Manual) Eosinophils % (Manual) Nucleated RBC % Seg Neutrophils # Seg Neutrophils # Man Lymphocytes # (Manual) Monocytes # (Manual) Eosinophils # (Manual) PT INR POC ABG pH POC ABG pCO2 POC ABG pO2 Sodium Potassium 3.2 L Chloride Carbon Dioxide BUN Creatinine Glucose 117 H POC Glucose 132 H Lactic Acid Calcium 8.2 L Phosphorus Magnesium 1.50 L AST ALT Alkaline Phosphatase Troponin T C-Reactive Protein Total Protein Albumin LDL Cholesterol Direct HDL Cholesterol Urine Creatinine Hepatitis C Antibody Crossmatch Crossmatch [facility] 12/19/17 12/19/17 12/19/17 09:00 09:00 18:01 WBC 12.4 H RBC 2.86 L Hgb 7.2 L Hct 22.6 L MCV 79 L MCH 25 L MCHC RDW 17.2 H Plt Count Lymph % (Auto) 6.8 L [place] % (Auto) 12.6 H Eos % (Auto) Lymph # 0.8 L [place] # 1.6 H Eos # Baso # Seg Neutrophils % 80.1 H Seg Neuts % (Manual) Lymphocytes % (Manual) Monocytes % (Manual) Eosinophils % (Manual) Nucleated RBC % Seg Neutrophils # 10.0 H Seg Neutrophils # Man Lymphocytes # (Manual) Monocytes # (Manual) Eosinophils # (Manual) PT INR POC ABG pH POC ABG pCO2 POC ABG pO2 Sodium Potassium 3.1 L Chloride Carbon Dioxide BUN 22 H Creatinine Glucose 113 H POC Glucose 117 H Lactic Acid Calcium 8.3 L Phosphorus Magnesium AST 54 H ALT Alkaline Phosphatase 204 H Troponin T C-Reactive Protein Total Protein 5.8 L Albumin 2.0 L LDL Cholesterol Direct HDL Cholesterol Urine Creatinine Hepatitis C Antibody Crossmatch Crossmatch [place] 12/19/17 12/20/17 12/20/17 23:49 05:53 19:00 WBC RBC 3.03 L Hgb 7.7 L Hct 23.7 L MCV 78 L MCH 25 L MCHC RDW 17.2 H Plt Count Lymph % (Auto) [place] % (Auto) Eos % (Auto) Lymph # [place] # Eos # Baso # Seg Neutrophils % Seg Neuts % (Manual) 74.0 H Lymphocytes % (Manual) 6.0 L Monocytes % (Manual) 17.0 H Eosinophils % (Manual) Nucleated RBC % Seg Neutrophils # Seg Neutrophils # Man Lymphocytes # (Manual) 0.5 L Monocytes # (Manual) 1.5 H Eosinophils # (Manual) PT INR POC ABG pH POC ABG pCO2 POC ABG pO2 Sodium Potassium Chloride Carbon Dioxide BUN Creatinine Glucose POC Glucose 125 H 124 H Lactic Acid Calcium Phosphorus Magnesium AST ALT Alkaline Phosphatase Troponin T C-Reactive Protein Total Protein Albumin LDL Cholesterol Direct HDL Cholesterol Urine Creatinine Hepatitis C Antibody Crossmatch Crossmatch [place] 12/20/17 12/21/17 12/22/17 19:00 23:54 05:07 WBC RBC Hgb Hct MCV MCH MCHC RDW Plt Count Lymph % (Auto) [place] % (Auto) Eos % (Auto) Lymph # [place] # Eos # Baso # Seg Neutrophils % Seg Neuts % (Manual) Lymphocytes % (Manual) Monocytes % (Manual) Eosinophils % (Manual) Nucleated RBC % Seg Neutrophils # Seg Neutrophils # Man Lymphocytes # (Manual) Monocytes # (Manual) Eosinophils # (Manual) PT INR POC ABG pH POC ABG pCO2 POC ABG pO2 Sodium Potassium 3.3 L 2.9 L* Chloride Carbon Dioxide BUN 37 H 43 H Creatinine Glucose 114 H POC Glucose 109 H Lactic Acid Calcium 8.3 L 7.8 L Phosphorus 1.60 L Magnesium 1.50 L AST ALT Alkaline Phosphatase Troponin T C-Reactive Protein Total Protein Albumin LDL Cholesterol Direct HDL Cholesterol Urine Creatinine Hepatitis C Antibody Crossmatch Crossmatch [place] 12/22/17 12/22/17 12/22/17 05:07 05:07 06:02 WBC 4.1 L RBC 3.09 L Hgb 7.7 L Hct 24.3 L MCV 79 L MCH 25 L MCHC RDW 17.8 H Plt Count Lymph % (Auto) [place] % (Auto) Eos % (Auto) Lymph # [place] # Eos # Baso # Seg Neutrophils % Seg Neuts % (Manual) Lymphocytes % (Manual) Monocytes % (Manual) Eosinophils % (Manual) Nucleated RBC % Seg Neutrophils # Seg Neutrophils # Man Lymphocytes # (Manual) Monocytes # (Manual) Eosinophils # (Manual) PT INR POC ABG pH POC ABG pCO2 POC ABG pO2 Sodium Potassium Chloride Carbon Dioxide BUN Creatinine Glucose POC Glucose 107 H Lactic Acid Calcium Phosphorus Magnesium 1.60 L AST ALT Alkaline Phosphatase Troponin T C-Reactive Protein Total Protein Albumin LDL Cholesterol Direct HDL Cholesterol Urine Creatinine Hepatitis C Antibody Crossmatch Crossmatch [place] 12/22/17 12/22/17 12/22/17 10:50 12:02 17:32 WBC RBC Hgb Hct MCV MCH MCHC RDW Plt Count Lymph % (Auto) [place] % (Auto) Eos % (Auto) Lymph # [place] # Eos # Baso # Seg Neutrophils % Seg Neuts % (Manual) Lymphocytes % (Manual) Monocytes % (Manual) Eosinophils % (Manual) Nucleated RBC % Seg Neutrophils # Seg Neutrophils # Man Lymphocytes # (Manual) Monocytes # (Manual) Eosinophils # (Manual) PT INR POC ABG pH POC ABG pCO2 POC ABG pO2 Sodium Potassium Chloride Carbon Dioxide BUN Creatinine Glucose POC Glucose 129 H 111 H Lactic Acid Calcium Phosphorus Magnesium AST ALT Alkaline Phosphatase Troponin T C-Reactive Protein Total Protein Albumin LDL Cholesterol Direct HDL Cholesterol Urine Creatinine 55.8 H Hepatitis C Antibody Crossmatch Crossmatch [facility] 12/22/17 12/22/17 12/23/17 19:03 23:57 05:55 WBC RBC Hgb Hct MCV MCH MCHC RDW Plt Count Lymph % (Auto) [place] % (Auto) Eos % (Auto) Lymph # [place] # Eos # Baso # Seg Neutrophils % Seg Neuts % (Manual) Lymphocytes % (Manual) Monocytes % (Manual) Eosinophils % (Manual) Nucleated RBC % Seg Neutrophils # Seg Neutrophils # Man Lymphocytes # (Manual) Monocytes # (Manual) Eosinophils # (Manual) PT INR POC ABG pH POC ABG pCO2 POC ABG pO2 Sodium Potassium 3.4 L 2.9 L* Chloride Carbon Dioxide BUN 40 H Creatinine Glucose 107 H POC Glucose 128 H Lactic Acid Calcium 7.9 L Phosphorus Magnesium AST ALT Alkaline Phosphatase Troponin T C-Reactive Protein Total Protein Albumin LDL Cholesterol Direct HDL Cholesterol Urine Creatinine Hepatitis C Antibody Crossmatch Crossmatch [place] 12/23/17 12/23/17 12/23/17 05:55 05:55 11:59 WBC 3.8 L RBC 3.10 L Hgb 7.7 L Hct 25.5 L MCV 82 L MCH 25 L MCHC 30 L RDW 17.9 H Plt Count Lymph % (Auto) [place] % (Auto) Eos % (Auto) Lymph # [place] # Eos # Baso # Seg Neutrophils % Seg Neuts % (Manual) Lymphocytes % (Manual) Monocytes % (Manual) Eosinophils % (Manual) Nucleated RBC % Seg Neutrophils # Seg Neutrophils # Man Lymphocytes # (Manual) Monocytes # (Manual) Eosinophils # (Manual) PT INR POC ABG pH POC ABG pCO2 POC ABG pO2 Sodium Potassium Chloride Carbon Dioxide BUN Creatinine Glucose POC Glucose 115 H Lactic Acid Calcium Phosphorus Magnesium 1.60 L AST ALT Alkaline Phosphatase Troponin T C-Reactive Protein Total Protein Albumin LDL Cholesterol Direct HDL Cholesterol Urine Creatinine Hepatitis C Antibody Crossmatch Crossmatch [place] 12/23/17 12/24/17 12/24/17 22:48 00:29 03:17 WBC RBC Hgb Hct MCV MCH MCHC RDW Plt Count Lymph % (Auto) [place] % (Auto) Eos % (Auto) Lymph # [place] # Eos # Baso # Seg Neutrophils % Seg Neuts % (Manual) Lymphocytes % (Manual) Monocytes % (Manual) Eosinophils % (Manual) Nucleated RBC % Seg Neutrophils # Seg Neutrophils # Man Lymphocytes # (Manual) Monocytes # (Manual) Eosinophils # (Manual) PT INR POC ABG pH POC ABG pCO2 POC ABG pO2 Sodium 146 H Potassium 2.9 L* 3.4 L Chloride Carbon Dioxide BUN 36 H Creatinine 0.7 L Glucose POC Glucose 111 H Lactic Acid Calcium 7.5 L Phosphorus Magnesium 1.60 L AST 76 H ALT 59 H Alkaline Phosphatase 294 H Troponin T C-Reactive Protein Total Protein 5.8 L Albumin 2.2 L LDL Cholesterol Direct HDL Cholesterol Urine Creatinine Hepatitis C Antibody Crossmatch Crossmatch [place] 12/24/17 12/24/17 12/24/17 03:17 05:14 17:05 WBC RBC 3.03 L Hgb 7.6 L Hct 23.7 L MCV 78 L MCH 25 L MCHC RDW 17.8 H Plt Count Lymph % (Auto) [place] % (Auto) Eos % (Auto) Lymph # [place] # Eos # Baso # Seg Neutrophils % Seg Neuts % (Manual) Lymphocytes % (Manual) Monocytes % (Manual) Eosinophils % (Manual) Nucleated RBC % Seg Neutrophils # Seg Neutrophils # Man Lymphocytes # (Manual) Monocytes # (Manual) Eosinophils # (Manual) PT INR POC ABG pH POC ABG pCO2 POC ABG pO2 Sodium Potassium Chloride Carbon Dioxide BUN Creatinine Glucose POC Glucose 127 H 132 H Lactic Acid Calcium Phosphorus Magnesium AST ALT Alkaline Phosphatase Troponin T C-Reactive Protein Total Protein Albumin LDL Cholesterol Direct HDL Cholesterol Urine Creatinine Hepatitis C Antibody Crossmatch Crossmatch [place] 12/25/17 12/25/17 12/25/17 00:03 04:34 06:25 WBC RBC Hgb Hct MCV MCH MCHC RDW Plt Count Lymph % (Auto) [place] % (Auto) Eos % (Auto) Lymph # [place] # Eos # Baso # Seg Neutrophils % Seg Neuts % (Manual) Lymphocytes % (Manual) Monocytes % (Manual) Eosinophils % (Manual) Nucleated RBC % Seg Neutrophils # Seg Neutrophils # Man Lymphocytes # (Manual) Monocytes # (Manual) Eosinophils # (Manual) PT INR POC ABG pH POC ABG pCO2 POC ABG pO2 Sodium Potassium Chloride Carbon Dioxide BUN 30 H Creatinine 0.6 L Glucose 114 H POC Glucose 128 H 136 H Lactic Acid Calcium 7.5 L Phosphorus Magnesium AST 84 H ALT 82 H Alkaline Phosphatase 322 H Troponin T C-Reactive Protein Total Protein 6.0 L Albumin 2.3 L LDL Cholesterol Direct HDL Cholesterol Urine Creatinine Hepatitis C Antibody Crossmatch Crossmatch [facility] 12/25/17 12/25/17 12/26/17 12:02 18:28 00:03 WBC RBC Hgb Hct MCV MCH MCHC RDW Plt Count Lymph % (Auto) [place] % (Auto) Eos % (Auto) Lymph # [place] # Eos # Baso # Seg Neutrophils % Seg Neuts % (Manual) Lymphocytes % (Manual) Monocytes % (Manual) Eosinophils % (Manual) Nucleated RBC % Seg Neutrophils # Seg Neutrophils # Man Lymphocytes # (Manual) Monocytes # (Manual) Eosinophils # (Manual) PT INR POC ABG pH POC ABG pCO2 POC ABG pO2 Sodium Potassium Chloride Carbon Dioxide BUN Creatinine Glucose POC Glucose 158 H 113 H 117 H Lactic Acid Calcium Phosphorus Magnesium AST ALT Alkaline Phosphatase Troponin T C-Reactive Protein Total Protein Albumin LDL Cholesterol Direct HDL Cholesterol Urine Creatinine Hepatitis C Antibody Crossmatch Crossmatch [place] 12/26/17 12/26/17 12/26/17 04:26 06:35 08:47 WBC RBC Hgb Hct MCV MCH MCHC RDW Plt Count Lymph % (Auto) [place] % (Auto) Eos % (Auto) Lymph # [place] # Eos # Baso # Seg Neutrophils % Seg Neuts % (Manual) Lymphocytes % (Manual) Monocytes % (Manual) Eosinophils % (Manual) Nucleated RBC % Seg Neutrophils # Seg Neutrophils # Man Lymphocytes # (Manual) Monocytes # (Manual) Eosinophils # (Manual) PT INR POC ABG pH POC ABG pCO2 POC ABG pO2 Sodium Potassium 5.4 H D 3.3 L D Chloride Carbon Dioxide 21 L BUN 39 H Creatinine 0.7 L Glucose 121 H POC Glucose 122 H Lactic Acid Calcium 7.8 L Phosphorus Magnesium AST 144 H ALT 98 H Alkaline Phosphatase 330 H Troponin T C-Reactive Protein Total Protein 6.1 L Albumin 2.1 L LDL Cholesterol Direct HDL Cholesterol Urine Creatinine Hepatitis C Antibody Crossmatch Crossmatch [place] 12/26/17 12/26/17 12/27/17 12:29 18:27 07:34 WBC RBC Hgb Hct MCV MCH MCHC RDW Plt Count Lymph % (Auto) [place] % (Auto) Eos % (Auto) Lymph # [place] # Eos # Baso # Seg Neutrophils % Seg Neuts % (Manual) Lymphocytes % (Manual) Monocytes % (Manual) Eosinophils % (Manual) Nucleated RBC % Seg Neutrophils # Seg Neutrophils # Man Lymphocytes # (Manual) Monocytes # (Manual) Eosinophils # (Manual) PT INR POC ABG pH POC ABG pCO2 POC ABG pO2 Sodium Potassium 3.1 L Chloride Carbon Dioxide BUN Creatinine 0.5 L Glucose POC Glucose 128 H 121 H Lactic Acid Calcium 7.7 L Phosphorus Magnesium AST 74 H ALT 80 H Alkaline Phosphatase 306 H Troponin T C-Reactive Protein Total Protein 6.1 L Albumin 2.1 L LDL Cholesterol Direct HDL Cholesterol Urine Creatinine Hepatitis C Antibody Crossmatch Crossmatch [place] 12/27/17 12/28/17 12/28/17 07:34 04:59 04:59 WBC 11.1 H RBC 3.00 L Hgb 7.2 L Hct 23.6 L MCV 79 L MCH 24 L MCHC 31 L RDW 18.3 H Plt Count Lymph % (Auto) 10.0 L [place] % (Auto) 10.2 H Eos % (Auto) 6.7 H Lymph # 1.1 L [place] # 1.1 H Eos # 0.7 H Baso # Seg Neutrophils % 72.1 H Seg Neuts % (Manual) Lymphocytes % (Manual) Monocytes % (Manual) Eosinophils % (Manual) Nucleated RBC % Seg Neutrophils # 8.0 H Seg Neutrophils # Man Lymphocytes # (Manual) Monocytes # (Manual) Eosinophils # (Manual) PT INR POC ABG pH POC ABG pCO2 POC ABG pO2 Sodium Potassium Chloride Carbon Dioxide BUN Creatinine 0.4 L Glucose 102 H POC Glucose Lactic Acid Calcium 7.8 L Phosphorus Magnesium 1.30 L AST 58 H ALT 62 H Alkaline Phosphatase 274 H Troponin T C-Reactive Protein Total Protein 6.0 L Albumin 2.0 L LDL Cholesterol Direct HDL Cholesterol Urine Creatinine Hepatitis C Antibody Crossmatch Crossmatch [place] 12/28/17 12/29/17 12/29/17 18:06 04:02 04:02 WBC RBC Hgb Hct MCV MCH MCHC RDW Plt Count Lymph % (Auto) [place] % (Auto) Eos % (Auto) Lymph # [place] # Eos # Baso # Seg Neutrophils % Seg Neuts % (Manual) Lymphocytes % (Manual) Monocytes % (Manual) Eosinophils % (Manual) Nucleated RBC % Seg Neutrophils # Seg Neutrophils # Man Lymphocytes # (Manual) Monocytes # (Manual) Eosinophils # (Manual) PT INR POC ABG pH POC ABG pCO2 POC ABG pO2 Sodium Potassium Chloride Carbon Dioxide BUN Creatinine 0.5 L Glucose POC Glucose 107 H Lactic Acid Calcium 7.8 L Phosphorus Magnesium 1.40 L AST 50 H ALT Alkaline Phosphatase 311 H Troponin T C-Reactive Protein Total Protein 5.9 L Albumin 2.3 L LDL Cholesterol Direct HDL Cholesterol Urine Creatinine Hepatitis C Antibody Crossmatch Crossmatch [place] 12/29/17 12/29/17 12/30/17 12:10 17:33 04:46 WBC RBC Hgb Hct MCV MCH MCHC RDW Plt Count Lymph % (Auto) [place] % (Auto) Eos % (Auto) Lymph # [place] # Eos # Baso # Seg Neutrophils % Seg Neuts % (Manual) Lymphocytes % (Manual) Monocytes % (Manual) Eosinophils % (Manual) Nucleated RBC % Seg Neutrophils # Seg Neutrophils # Man Lymphocytes # (Manual) Monocytes # (Manual) Eosinophils # (Manual) PT INR POC ABG pH POC ABG pCO2 POC ABG pO2 Sodium Potassium Chloride Carbon Dioxide BUN Creatinine 0.5 L Glucose POC Glucose 124 H 108 H Lactic Acid Calcium 8.2 L Phosphorus Magnesium AST ALT Alkaline Phosphatase 288 H Troponin T C-Reactive Protein Total Protein Albumin 2.4 L LDL Cholesterol Direct HDL Cholesterol Urine Creatinine Hepatitis C Antibody Crossmatch Crossmatch [place] 12/30/17 12/31/17 12/31/17 04:46 04:03 04:03 WBC RBC Hgb Hct MCV MCH MCHC RDW Plt Count Lymph % (Auto) [place] % (Auto) Eos % (Auto) Lymph # [place] # Eos # Baso # Seg Neutrophils % Seg Neuts % (Manual) Lymphocytes % (Manual) Monocytes % (Manual) Eosinophils % (Manual) Nucleated RBC % Seg Neutrophils # Seg Neutrophils # Man Lymphocytes # (Manual) Monocytes # (Manual) Eosinophils # (Manual) PT INR POC ABG pH POC ABG pCO2 POC ABG pO2 Sodium Potassium Chloride Carbon Dioxide BUN Creatinine 0.4 L Glucose 103 H POC Glucose Lactic Acid Calcium 8.1 L Phosphorus Magnesium 1.50 L 1.30 L AST ALT Alkaline Phosphatase Troponin T C-Reactive Protein Total Protein Albumin LDL Cholesterol Direct HDL Cholesterol Urine Creatinine Hepatitis C Antibody Crossmatch Crossmatch [place] 12/31/17 12/31/17 01/01/18 16:56 23:55 04:26 WBC RBC Hgb Hct MCV MCH MCHC RDW Plt Count Lymph % (Auto) [place] % (Auto) Eos % (Auto) Lymph # [place] # Eos # Baso # Seg Neutrophils % Seg Neuts % (Manual) Lymphocytes % (Manual) Monocytes % (Manual) Eosinophils % (Manual) Nucleated RBC % Seg Neutrophils # Seg Neutrophils # Man Lymphocytes # (Manual) Monocytes # (Manual) Eosinophils # (Manual) PT INR POC ABG pH POC ABG pCO2 POC ABG pO2 Sodium Potassium 3.5 L Chloride Carbon Dioxide BUN Creatinine 0.3 L Glucose 105 H POC Glucose 106 H 108 H Lactic Acid Calcium 7.9 L Phosphorus Magnesium AST ALT Alkaline Phosphatase Troponin T C-Reactive Protein Total Protein Albumin LDL Cholesterol Direct HDL Cholesterol Urine Creatinine Hepatitis C Antibody Crossmatch Crossmatch [place] 01/01/18 01/01/18 01/02/18 04:26 05:26 03:45 WBC RBC 3.07 L Hgb 7.6 L Hct 24.1 L MCV 78 L MCH 25 L MCHC 31 L RDW 18.2 H Plt Count Lymph % (Auto) [place] % (Auto) Eos % (Auto) Lymph # [place] # Eos # Baso # Seg Neutrophils % Seg Neuts % (Manual) 72.0 H Lymphocytes % (Manual) 13.0 L Monocytes % (Manual) Eosinophils % (Manual) 7.0 H Nucleated RBC % 1.0 H Seg Neutrophils # Seg Neutrophils # Man Lymphocytes # (Manual) Monocytes # (Manual) Eosinophils # (Manual) 0.7 H PT INR POC ABG pH POC ABG pCO2 POC ABG pO2 Sodium 134 L Potassium Chloride Carbon Dioxide BUN Creatinine 0.4 L Glucose POC Glucose 107 H Lactic Acid Calcium 8.1 L Phosphorus Magnesium AST ALT Alkaline Phosphatase Troponin T C-Reactive Protein Total Protein Albumin LDL Cholesterol Direct HDL Cholesterol Urine Creatinine Hepatitis C Antibody Crossmatch Crossmatch [place] 01/02/18 01/03/18 01/04/18 03:45 12:15 00:25 WBC 13.1 H RBC 3.17 L Hgb 7.5 L Hct 24.8 L MCV 78 L MCH 24 L MCHC 31 L RDW 18.2 H Plt Count Lymph % (Auto) 11.0 L [place] % (Auto) 8.8 H Eos % (Auto) Lymph # [place] # 1.2 H Eos # 0.5 H Baso # 0.2 H Seg Neutrophils % 74.7 H Seg Neuts % (Manual) Lymphocytes % (Manual) Monocytes % (Manual) Eosinophils % (Manual) Nucleated RBC % Seg Neutrophils # 9.8 H Seg Neutrophils # Man Lymphocytes # (Manual) Monocytes # (Manual) Eosinophils # (Manual) PT INR POC ABG pH POC ABG pCO2 POC ABG pO2 Sodium Potassium Chloride Carbon Dioxide BUN Creatinine Glucose POC Glucose 137 H < 40 L Lactic Acid Calcium Phosphorus Magnesium AST ALT Alkaline Phosphatase Troponin T C-Reactive Protein Total Protein Albumin LDL Cholesterol Direct HDL Cholesterol Urine Creatinine Hepatitis C Antibody Crossmatch Crossmatch [facility]
--- NOTE | 2018-01-04 09:47 | Progress Note ---
Subjective Principal diagnosis: Acute hypoxic respiratory failure, s/p Trach Interval history: Patient was seen today for follow-up on multiple renal related issues Events of this hospitalization noted Discussed with patient's nurse Dialysis catheter has already been removed Renal function has recovered hemodialysis has been stopped Vitals labs intake output medications were reviewed Social history: Reviewed Allergies: Reviewed Family history: Reviewed Physical examination HEENT: Oral mucosa moist no pallor or icterus Neck: Supple no JVD Chest: Clear to auscultation anteriorly CVS: Regular rate and rhythm S1 and S2 heard Abdomen: Soft nontender no suprapubic masses no organomegaly appreciable, has surgical abdominal wounds Extremity: Dry skin less than 1+ peripheral edema Musculoskeletal: No joint effusion noted in knees and ankle Dermatology: No petechial rashes Psychiatry: No evidence of any agitation and aggression noted Assessment and plan Acute kidney injury: Patient's renal function has markedly improved Creatinine is currently around 0.4 sodium 134 potassium 3.9 as of January 02 Renal failure was mostly resulting from acute tubular necrosis Will order for basic labs today, if stable can sign off the case Respiratory failure requiring mechanical ventilation status post tracheotomy, aspiration pneumonia Multiple electrolyte abnormalities to be monitored and followed Status post carotid endarterectomy/encephalopathy: Multifactorial His prognosis is very poor due to multiple comorbidities, mortality risk is still high Objective - Vital Signs Vital signs: Vital Signs - 12hr 01/03/18 01/03/18 01/03/18 22:00 23:00 23:05 Temperature 98.7 F Pulse Rate 99 H 100 H Pulse Rate [ Right From Monitor] Respiratory 33 H 29 H Rate Blood Pressure 149/83 146/81 O2 Sat by Pulse 100 100 Oximetry O2 Sat by Pulse Oximetry [ Assessment] 01/03/18 01/04/18 01/04/18 23:38 00:00 01:00 Temperature Pulse Rate 97 H 94 H 98 H Pulse Rate [ 98 H Right From Monitor] Respiratory 29 H 27 H 20 Rate Blood Pressure 146/81 146/81 154/95 O2 Sat by Pulse 100 100 100 Oximetry O2 Sat by Pulse Oximetry [ Assessment] 01/04/18 01/04/18 01/04/18 02:00 02:45 03:00 Temperature Pulse Rate 98 H 103 H Pulse Rate [ Right From Monitor] Respiratory 26 H 33 H Rate Blood Pressure 136/91 161/95 O2 Sat by Pulse 100 100 Oximetry O2 Sat by Pulse 100 Oximetry [ Assessment] 01/04/18 01/04/18 01/04/18 03:32 04:00 05:00 Temperature 98.8 F Pulse Rate 108 H 101 H Pulse Rate [ 108 H Right From Monitor] Respiratory 32 H 27 H Rate Blood Pressure 161/95 144/90 O2 Sat by Pulse 100 100 Oximetry O2 Sat by Pulse Oximetry [ Assessment] 01/04/18 01/04/18 01/04/18 06:00 06:11 07:00 Temperature Pulse Rate 101 H 102 H 107 H Pulse Rate [ Right From Monitor] Respiratory 27 H 28 H Rate Blood Pressure 164/95 183/103 118/64 O2 Sat by Pulse 100 100 Oximetry O2 Sat by Pulse Oximetry [ Assessment] 01/04/18 01/04/18 08:00 08:08 Temperature 98.4 F Pulse Rate 113 H Pulse Rate [ Right From Monitor] Respiratory 26 H Rate Blood Pressure 118/64 O2 Sat by Pulse 100 100 Oximetry O2 Sat by Pulse 100 Oximetry [ Assessment] - Lab 01/02/18 03:45 01/02/18 03:45 Most recent lab results Calcium 8.1 mg/dL (8.4-10.2) L 01/02/18 03:45 Phosphorus 3.40 mg/dL (2.5-4.5) 01/02/18 03:45 Magnesium 1.70 mg/dL (1.7-2.3) 01/02/18 03:45 Urine Creatinine 55.8 mg/dL (0.1-20.0) H 12/22/17 10:50
[2018-01-04] MEDS: LOPRESSOR PO SCH ×2 (10:36→21:54)
[2018-01-04] MEDS: PREVACID SOLUTAB FEEDTUBE SCH ×2 (10:37→21:54)
[2018-01-04] MEDS: MAG-OX PO SCH ×2 (10:38→21:52)
[2018-01-04] MEDS: POTASSIUM CHLORIDE FEEDTUBE SCH ×2 (10:38→21:50)
[2018-01-04 12:39] LABS: BUN/Creatinine Ratio 37; Blood Urea Nitrogen 11 mg/dL (9-20); Hemolysis Index 26
[2018-01-04 13:33] LABS: Hematocrit 24.8 % (35.5-45.6); Hemoglobin 7.7 gm/dl (11.8-15.2); Mean Corpuscular HGB Conc 31 % (32-34); Mean Corpuscular Volume 78 fl (84-94); Platelet Count 203 K/mm3 (140-440); Red Blood Count 3.18 M/mm3 (3.65-5.03); Red Cell Distribution Width 18.4 % (13.2-15.2)
[2018-01-04 13:39] LABS: Mean Corpuscular Hemoglobin 24 pg (28-32)
[2018-01-04] MEDS ORDERED: SODIUM BICARBONATE FEEDTUBE PRN (15:14)
[2018-01-04] MEDS ORDERED: SIMPLE SYRUP FEEDTUBE PRN ×2 (15:14)
[2018-01-04] MEDS ORDERED: PANCREAZE DR 10,500 UNIT FEEDTUBE PRN (15:20)
--- NOTE | 2018-01-04 18:32 | Progress Note ---
Assessment and Plan - Patient Problems (1) Gastrostomy malfunction Current Visit: Yes Status: Acute Plan to address problem: Pt is stable. After reviewing the records, discussing the case with multiple attendings, and seeing the patient, it is clear that we do not have an acute perforation. Most likely, the PEG tube started to migrate out of position prior to 11/18 as evidenced by no PEG button seen on EGD and no obvious hole in the stomach. As the contrast is restricted to certain areas in the abdomen, the fluid is loculated. The "ascites" may be tube feeds and/or reactionary fluid. Regardless, patient is not showing signs of obvious peritonitis. In this case, it may be prudent to try placing a few drains in the abdomen to remove that largest collections. I have already discussed this case with Dr. Moreira who agreed to review the case and see if that was possible. The alternative would be to take the patient for an ex-lap and washout the abdomen. I'm concerned that there may be a lot of inflammatory changes in the abdomen which would put him at risk for bowel injuries from the procedure. Therefore, this will be our back-up plan if the drains do not resolve the problem. As for nutritional access , for now, I would recommend an NGT. I doubt he has an active leak, so there is no need to test the stomach prior to using it. I have explained this plan in detail to the daughter (Jannette) and the attendings from ICU, GI, and hospitalist service. All were in agreement. - 11/25/17 Initial Consult Pt appears stable. s/p dx lap and washout - 12/03 POD#32. Pt stable. Volumes from drains are fluctuating. The ODLAYS drain is starting to clear up. Will leave drains until output slows down and clears up. Would leave surgical incisions open to air. Please call with questions. Will follow along peripherally. Time=10min Subjective Date of service: 01/04/18 Patient Reports: Positive: other (no new issues) Objective Vital Signs - 12hr 01/04/18 01/04/18 01/04/18 07:00 08:00 08:08 Temperature 98.4 F Pulse Rate 107 H 113 H Pulse Rate [ Left] Respiratory 28 H 26 H Rate Blood Pressure 118/64 118/64 O2 Sat by Pulse 100 100 100 Oximetry O2 Sat by Pulse 100 Oximetry [ Assessment] 01/04/18 01/04/18 01/04/18 09:00 10:00 10:36 Temperature Pulse Rate 105 H 114 H 118 H Pulse Rate [ Left] Respiratory 22 24 Rate Blood Pressure 117/71 140/80 140/80 O2 Sat by Pulse 100 100 Oximetry O2 Sat by Pulse Oximetry [ Assessment] 01/04/18 01/04/18 01/04/18 11:00 12:00 13:00 Temperature 98.1 F Pulse Rate 118 H 100 H 103 H Pulse Rate [ 97 H Left] Respiratory 30 H 20 29 H Rate Blood Pressure 134/72 140/76 142/76 O2 Sat by Pulse 100 99 99 Oximetry O2 Sat by Pulse Oximetry [ Assessment] 01/04/18 01/04/18 01/04/18 14:00 15:00 16:00 Temperature Pulse Rate 105 H 108 H 112 H Pulse Rate [ 118 H Left] Respiratory 30 H 25 H 31 H Rate Blood Pressure 141/86 142/89 148/83 O2 Sat by Pulse 100 100 99 Oximetry O2 Sat by Pulse Oximetry [ Assessment] 01/04/18 01/04/18 17:00 18:00 Temperature Pulse Rate 103 H 99 H Pulse Rate [ Left] Respiratory 25 H 25 H Rate Blood Pressure 142/75 145/76 O2 Sat by Pulse 100 100 Oximetry O2 Sat by Pulse Oximetry [ Assessment] - General physical appearance no distress, no pain, other (sleeping) - Respiratory normal expansion, normal respiratory effort - Abdomen soft, not tender, other (ODALYS drain is starting to lighten up. Lat drain is minimal in output) - Integumentary no rash, no growths, no abnormal pigmentation - Labs 01/04/18 12:52 01/04/18 04:31 Diabetes panel 01/04/18 Range/Units 04:31 Sodium 139 (137-145) mmol/L Potassium 4.3 (3.6-5.0) mmol/L Chloride 101.5 (98-107) mmol/L Carbon Dioxide 19 L (22-30) mmol/L BUN 11 (9-20) mg/dL Creatinine 0.3 L (0.8-1.5) mg/dL Glucose 47 L (75-100) mg/dL Calcium 8.0 L (8.4-10.2) mg/dL Calcium panel 01/04/18 Range/Units 04:31 Calcium 8.0 L (8.4-10.2) mg/dL Pituitary panel 01/04/18 Range/Units 04:31 Sodium 139 (137-145) mmol/L Potassium 4.3 (3.6-5.0) mmol/L Chloride 101.5 (98-107) mmol/L Carbon Dioxide 19 L (22-30) mmol/L BUN 11 (9-20) mg/dL Creatinine 0.3 L (0.8-1.5) mg/dL Glucose 47 L (75-100) mg/dL Calcium 8.0 L (8.4-10.2) mg/dL Adrenal panel 01/04/18 Range/Units 04:31 Sodium 139 (137-145) mmol/L Potassium 4.3 (3.6-5.0) mmol/L Chloride 101.5 (98-107) mmol/L Carbon Dioxide 19 L (22-30) mmol/L BUN 11 (9-20) mg/dL Creatinine 0.3 L (0.8-1.5) mg/dL Glucose 47 L (75-100) mg/dL Calcium 8.0 L (8.4-10.2) mg/dL
--- NOTE | 2018-01-04 18:50 | Progress Note ---
Assessment and Plan Assessment and plan: --Peritonitis: from dislodged peg tube Patient received complete course of antibiotics Multiple surgical procedures with intra-abdominal drainage placement IR and surgery evaluated the patient Continue current management, awaiting for wound healing Possible new peg placement when medically stable Continue to monitor output of the drains, will DC the drains when output clears --Acute hypoxic respiratory failure; requiring mechanical ventilation more than 96% Status post tracheostomy, continue trach care, nebulizers, oxygen --Aspiration pneumonia; received complete treatment, resolved --Acute kidney injury; secondary to ATN Requiring intermittent dialysis as needed --Chronic anemia; received total 3 units of PRBC, closely monitor H&H transfuse as needed --Hypernatremia/hypokalemia/hypomagnesemia; Closely monitor electrolytes and adjust as needed --History of carotid endarterectomy; supportive care --Metabolic encephalopathy; supportive care --Severe malnutrition; nutrition supplements and feeding --DVT prophylaxis; SCDs --Full CODE STATUS Patient is critically ill, recommend hospice Consults and recommendations noted DC planning per case management LTAC declined admission KILEY rosenthal daughter, Eugenie [phone], History Interval history: Patient seen and examined medical records reviewed Clinically no change, noncommunicative Tracheostomy on the piece Vital signs noted Continues to have small amounts of drainage From the peritoneal cavity Hospitalist Physical - Constitutional Vitals: Temp Pulse Resp BP Pulse Ox 98.1 F 99 H 25 H 145/76 100 01/04/18 12:00 01/04/18 18:00 01/04/18 18:00 01/04/18 18:00 01/04/18 18:00 General appearance: Present: no acute distress, cachectic, disheveled, other ( tracheostomy on T piece) - EENT Eyes: Present: PERRL, EOM intact - Neck Neck: Present: supple, normal ROM - Respiratory Respiratory effort: normal Respiratory: bilateral: diminished, negative: rales, rhonchi, wheezing - Cardiovascular Rhythm: regular Heart Sounds: Present: S1 & S2 - Extremities Extremities: no ischemia, No edema - Abdominal General gastrointestinal: soft, non-tender, non-distended, other (drainage tube intact) - Integumentary Integumentary: Present: clear, warm - Psychiatric Psychiatric: other (unresponsive) - Neurologic Neurologic: other (noncommunicative) Results - Labs CBC & Chem 7: 01/04/18 12:52 01/04/18 04:31 Labs: Laboratory Last Values WBC 11.1 K/mm3 (4.5-11.0) H 01/04/18 12:52 RBC 3.18 M/mm3 (3.65-5.03) L 01/04/18 12:52 Hgb 7.7 gm/dl (11.8-15.2) L 01/04/18 12:52 Hct 24.8 % (35.5-45.6) L 01/04/18 12:52 MCV 78 fl (84-94) L 01/04/18 12:52 MCH 24 pg (28-32) L 01/04/18 12:52 MCHC 31 % (32-34) L 01/04/18 12:52 RDW 18.4 % (13.2-15.2) H 01/04/18 12:52 Plt Count 203 K/mm3 (140-440) 01/04/18 12:52 Lymph % (Auto) [employer] 01/04/18 12:52 [place] % (Auto) [employer] 01/04/18 12:52 Eos % (Auto) [employer] 01/04/18 12:52 Baso % (Auto) [employer] 01/04/18 12:52 Lymph # [employer] 01/04/18 12:52 [place] # [employer]er 01/04/18 12:52 Eos # [employer]er 01/04/18 12:52 Baso # [employer] 01/04/18 12:52 Add Manual Diff Complete 01/01/18 04:26 Total Counted 100 01/01/18 04:26 Seg Neutrophils % [employer] 01/04/18 12:52 Seg Neuts % (Manual) 72.0 % (40.0-70.0) H 01/01/18 04:26 Band Neutrophils % 0 % 01/01/18 04:26 Lymphocytes % (Manual) 13.0 % (13.4-35.0) L 01/01/18 04:26 Reactive Lymphs % (Man) 0 % 01/01/18 04:26 Monocytes % (Manual) 7.0 % (0.0-7.3) 01/01/18 04:26 Eosinophils % (Manual) 7.0 % (0.0-4.3) H 01/01/18 04:26 Basophils % (Manual) 1.0 % (0.0-1.8) 01/01/18 04:26 Metamyelocytes % 0 % 01/01/18 04:26 Myelocytes % 0 % 01/01/18 04:26 Promyelocytes % 0 % 01/01/18 04:26 Blast Cells % 0 % 01/01/18 04:26 Nucleated RBC % 1.0 % (0.0-0.9) H 01/01/18 04:26 Seg Neutrophils # [employer]er 01/04/18 12:52 Seg Neutrophils # Man 7.5 K/mm3 (1.8-7.7) 01/01/18 04:26 Band Neutrophils # 0.0 K/mm3 01/01/18 04:26 Lymphocytes # (Manual) 1.4 K/mm3 (1.2-5.4) 01/01/18 04:26 Abs React Lymphs (Man) 0.0 K/mm3 01/01/18 04:26 Monocytes # (Manual) 0.7 K/mm3 (0.0-0.8) 01/01/18 04:26 Eosinophils # (Manual) 0.7 K/mm3 (0.0-0.4) H 01/01/18 04:26 Basophils # (Manual) 0.1 K/mm3 (0.0-0.1) 01/01/18 04:26 Metamyelocytes # 0.0 K/mm3 01/01/18 04:26 Myelocytes # 0.0 K/mm3 01/01/18 04:26 Promyelocytes # 0.0 K/mm3 01/01/18 04:26 Blast Cells # 0.0 K/mm3 01/01/18 04:26 WBC Morphology Not Reportable 01/01/18 04:26 Hypersegmented Neuts Not Reportable 01/01/18 04:26 Hyposegmented Neuts Not Reportable 01/01/18 04:26 Hypogranular Neuts Not Reportable 01/01/18 04:26 Smudge Cells Not Reportable 01/01/18 04:26 Toxic Granulation Not Reportable 01/01/18 04:26 Toxic Vacuolation Not Reportable 01/01/18 04:26 Dohle Bodies Not Reportable 01/01/18 04:26 Pelger-Huet Anomaly Not Reportable 01/01/18 04:26 Evangelina Rods Not Reportable 01/01/18 04:26 Platelet Estimate Consistent w auto 01/01/18 04:26 Clumped Platelets Not Reportable 01/01/18 04:26 Plt Clumps, EDTA Not Reportable 01/01/18 04:26 Large Platelets Not Reportable 01/01/18 04:26 Giant Platelets Not Reportable 01/01/18 04:26 Platelet Satelliting Not Reportable 01/01/18 04:26 Plt Morphology Comment Not Reportable 01/01/18 04:26 RBC Morphology Not Reportable 01/01/18 04:26 Dimorphic RBCs Not Reportable 01/01/18 04:26 Polychromasia Not Reportable 01/01/18 04:26 Hypochromasia Not Reportable 01/01/18 04:26 Poikilocytosis Not Reportable 01/01/18 04:26 Anisocytosis 1+ 01/01/18 04:26 Microcytosis Not Reportable 01/01/18 04:26 Macrocytosis Not Reportable 01/01/18 04:26 Spherocytes Not Reportable 01/01/18 04:26 Pappenheimer Bodies Not Reportable 01/01/18 04:26 Sickle Cells Not Reportable 01/01/18 04:26 Target Cells Not Reportable 01/01/18 04:26 Tear Drop Cells Not Reportable 01/01/18 04:26 Ovalocytes Not Reportable 01/01/18 04:26 Stomatocytes Few 01/01/18 04:26 Helmet Cells Not Reportable 01/01/18 04:26 [place] Bodies Not Reportable 01/01/18 04:26 [place] Rings Not Reportable 01/01/18 04:26 Lucretia Cells Not Reportable 01/01/18 04:26 Bite Cells Not Reportable 01/01/18 04:26 Crenated Cell Not Reportable 01/01/18 04:26 Elliptocytes Not Reportable 01/01/18 04:26 Acanthocytes (Spur) Not Reportable 01/01/18 04:26 Rouleaux Not Reportable 01/01/18 04:26 Hemoglobin C Crystals Not Reportable 01/01/18 04:26 Schistocytes Not Reportable 01/01/18 04:26 Malaria parasites Not Reportable 01/01/18 04:26 [place] Bodies Not Reportable 01/01/18 04:26 Hem Pathologist Commnt No 01/01/18 04:26 PT 15.4 Sec. (12.2-14.9) H 12/14/17 05:11 INR 1.17 (0.87-1.13) H 12/14/17 05:11 APTT 33.8 Sec. (24.2-36.6) 11/26/17 06:29 POC ABG pH 7.505 (7.35-7.45) H 11/23/17 04:56 POC ABG pCO2 26.3 (35-45) L 11/23/17 04:56 POC ABG pO2 100 (80-105) 11/23/17 04:56 POC ABG HCO3 20.8 11/23/17 04:56 POC ABG Total CO2 22 11/23/17 04:56 POC ABG O2 Sat 98 11/23/17 04:56 POC ABG Base Excess -2 11/23/17 04:56 FiO2 30 % 11/23/17 04:56 Sodium 139 mmol/L (137-145) 01/04/18 04:31 Potassium 4.3 mmol/L (3.6-5.0) 01/04/18 04:31 Chloride 101.5 mmol/L (98-107) 01/04/18 04:31 Carbon Dioxide 19 mmol/L (22-30) L 01/04/18 04:31 Anion Gap 23 mmol/L 01/04/18 04:31 BUN 11 mg/dL (9-20) 01/04/18 04:31 Creatinine 0.3 mg/dL (0.8-1.5) L 01/04/18 04:31 Estimated GFR > 60 ml/min 01/04/18 04:31 BUN/Creatinine Ratio 37 % 01/04/18 04:31 Glucose 47 mg/dL (75-100) L 01/04/18 04:31 POC Glucose 96 (70-105) 01/04/18 12:17 Lactic Acid 1.80 mmol/L (0.7-2.0) 11/27/17 04:06 Calcium 8.0 mg/dL (8.4-10.2) L 01/04/18 04:31 Phosphorus 3.40 mg/dL (2.5-4.5) 01/02/18 03:45 Magnesium 1.70 mg/dL (1.7-2.3) 01/02/18 03:45 Total Bilirubin 0.30 mg/dL (0.1-1.2) 12/30/17 04:46 AST 37 units/L (5-40) 12/30/17 04:46 ALT 48 units/L (7-56) 12/30/17 04:46 Alkaline Phosphatase 288 units/L (35-129) H 12/30/17 04:46 Total Creatine Kinase 84 units/L (55-170) 11/12/17 20:03 CK-MB (CK-2) < 1.0 ng/mL (0.0-4.0) 11/12/17 20:03 CK-MB (CK-2) Rel Index 1.1 (0-4) 11/12/17 20:03 Troponin T 0.098 ng/mL (0.00-0.029) H 11/12/17 Unknown C-Reactive Protein 25.70 mg/dL (0.00-1.30) H 11/11/17 23:20 NT-Pro-B Natriuret Pep 792.4 pg/mL (0-900) 11/11/17 23:20 Total Protein 6.6 g/dL (6.3-8.2) 12/30/17 04:46 Albumin 2.4 g/dL (3.9-5) L 12/30/17 04:46 Albumin/Globulin Ratio 0.6 % 12/30/17 04:46 Triglycerides 86 mg/dL (2-149) 11/11/17 23:20 Cholesterol 82 mg/dL (50-199) 11/11/17 23:20 LDL Cholesterol Direct 42 mg/dL (50-130) L 11/11/17 23:20 HDL Cholesterol 24 mg/dL (40-59) L 11/11/17 23:20 Cholesterol/HDL Ratio 3.41 % 11/11/17 23:20 Lipase 30 units/L (13-60) 11/11/17 23:20 Urine Color Nicole (Yellow) 11/11/17 23:09 Urine Turbidity Cloudy (Clear) 11/11/17 23:09 Urine pH 5.0 (5.0-7.0) 11/11/17 23:09 Ur Specific [place] 1.025 (1.003-1.030) 11/11/17 23:09 Urine Protein 100 mg/dl mg/dL (Negative) 11/11/17 23:09 Urine Glucose (UA) 50 mg/dL (Negative) 11/11/17 23:09 Urine Ketones Neg mg/dL (Negative) 11/11/17 23:09 Urine Blood Neg (Negative) 11/11/17 23:09 Urine Nitrite Neg (Negative) 11/11/17 23:09 Urine Bilirubin Neg (Negative) 11/11/17 23:09 Urine Urobilinogen 4.0 mg/dL (<2.0) 11/11/17 23:09 Ur Leukocyte Esterase Neg (Negative) 11/11/17 23:09 Urine WBC (Auto) 5.0 /HPF (0.0-6.0) 11/11/17 23:09 Urine RBC (Auto) 4.0 /HPF (0.0-6.0) 11/11/17 23:09 Urine Bacteria (Auto) 3+ /HPF (Negative) 11/11/17 23:09 Amorphous Crystals 3+ 11/11/17 23:09 Hyaline Casts 76 /LPF 11/11/17 23:09 Urine Mucus 2+ /HPF 11/11/17 23:09 Urine Total Volume 1350 12/22/17 10:50 Urine Creatinine 55.8 mg/dL (0.1-20.0) H 12/22/17 10:50 Ur Creatinine 24 Hour 0.8 (0.8-2.8) 12/22/17 10:50 Hepatitis A IgM Ab Non-reactive (NonReactive) 11/22/17 19:45 Hep Bs Antigen Non-reactive (Negative) 11/22/17 19:45 Hep B Core IgM Ab Non-reactive (NonReactive) 11/22/17 19:45 Hepatitis C Antibody Reactive (NonReactive) A 11/22/17 19:45 Blood Type A POSITIVE 12/16/17 13:01 Antibody Screen Positive 12/16/17 13:01 SANT[place] Antibody Screen Cancelled 12/16/17 13:01 Antibody Identification Cold Antibody 12/16/17 13:01 Crossmatch See Detail 12/16/17 13:01 Crossmatch P[place] See Detail 12/16/17 13:01
[2018-01-05] MEDS: NACL 0.45% 1000 ML 1,000 ML IV SCH (08:32)
--- NOTE | 2018-01-05 09:25 | Progress Note ---
Assessment and Plan s/p Acute respiratory failure. Stable,on trach/oxygen support. Minimal secretions Trach. patient Sepsis,post PEG related spillage or peritonitis. IR dranage x 2. No fever Stroke ESRD s/p carotid endarterectomy Recommendations Nebs and suction as needed for chest congestion Monitor s. lytes HD per nephrology. Nutritional support Physical therapy DVT prophylaxis Discussed with staff. No family at the bedside Subjective Date of service: 01/05/18 Principal diagnosis: Acute hypoxic respiratory failure, s/p Trach Interval history: No SOB, not in pain Objective Vital Signs - 12hr 01/04/18 01/04/18 01/04/18 21:34 21:54 22:00 Temperature Pulse Rate 110 H 105 H Pulse Rate [ Right From Monitor] Respiratory 28 H Rate Blood Pressure 134/95 147/86 O2 Sat by Pulse 99 100 Oximetry 01/04/18 01/04/18 01/04/18 22:46 23:00 23:25 Temperature Pulse Rate 115 H 116 H 107 H Pulse Rate [ Right From Monitor] Respiratory 23 25 H 22 Rate Blood Pressure 147/86 147/79 147/79 O2 Sat by Pulse 100 100 100 Oximetry 01/05/18 01/05/18 01/05/18 00:00 01:01 02:00 Temperature 98.9 F Pulse Rate 111 H 104 H 105 H Pulse Rate [ 108 H Right From Monitor] Respiratory 32 H 28 H 28 H Rate Blood Pressure 150/81 129/79 129/79 O2 Sat by Pulse 100 100 100 Oximetry 01/05/18 01/05/18 01/05/18 03:00 04:00 05:00 Temperature 97.5 F L Pulse Rate 104 H 103 H 107 H Pulse Rate [ 105 H Right From Monitor] Respiratory 34 H 29 H 29 H Rate Blood Pressure 146/86 147/90 155/92 O2 Sat by Pulse 100 100 100 Oximetry 01/05/18 01/05/18 01/05/18 06:00 07:00 08:00 Temperature 99.0 F Pulse Rate 106 H 107 H Pulse Rate [ Right From Monitor] Respiratory 25 H 27 H Rate Blood Pressure 155/92 137/90 O2 Sat by Pulse 100 100 Oximetry Constitutional: no acute distress, alert Eyes: non-icteric ENT: oropharynx moist, other (trach in position, no bleeding) Neck: supple (trach in position), no JVD Effort: normal Ascultation: Bilateral: clear, diminished breath sounds Cardiovascular: regular rate and rhythm Gastrointestinal: normoactive bowel sounds, soft, non-tender, other (rectal tube in place) Integumentary: normal Extremities: no cyanosis, pink and warm, no ischemia or petechiae Neurologic: other (L hemiparesis,awake, more responsive, nods to some of my questions, otherwise unchanged) Psychiatric: other (unable to assess) CBC and BMP: 01/04/18 12:52 01/04/18 04:31 ABG, PT/INR, D-dimer: ABG POC ABG pH 7.505 (7.35-7.45) H 11/23/17 04:56 POC ABG pCO2 26.3 (35-45) L 11/23/17 04:56 POC ABG pO2 100 (80-105) 11/23/17 04:56 POC ABG HCO3 20.8 11/23/17 04:56 POC ABG Total CO2 22 11/23/17 04:56 POC ABG O2 Sat 98 11/23/17 04:56 PT/INR, D-dimer PT 15.4 Sec. (12.2-14.9) H 12/14/17 05:11 INR 1.17 (0.87-1.13) H 12/14/17 05:11 Abnormal lab findings: Abnormal Labs 11/11/17 11/11/17 11/11/17 23:18 23:20 23:20 WBC RBC Hgb 10.4 L Hct 32.6 L D MCV MCH 27 L MCHC RDW 17.4 H Plt Count 105 L Lymph % (Auto) [place] % (Auto) Eos % (Auto) Lymph # [place] # Eos # Baso # Seg Neutrophils % Seg Neuts % (Manual) Lymphocytes % (Manual) 8.0 L Monocytes % (Manual) Eosinophils % (Manual) Nucleated RBC % 1.0 H Seg Neutrophils # Seg Neutrophils # Man Lymphocytes # (Manual) 0.7 L Monocytes # (Manual) Eosinophils # (Manual) PT INR POC ABG pH 7.550 H POC ABG pCO2 31.6 L POC ABG pO2 Sodium 146 H Potassium Chloride Carbon Dioxide BUN 26 H Creatinine 1.7 H D Glucose 133 H POC Glucose Lactic Acid Calcium Phosphorus Magnesium AST ALT Alkaline Phosphatase Troponin T 0.117 H* C-Reactive Protein Total Protein Albumin 2.5 L LDL Cholesterol Direct 42 L HDL Cholesterol 24 L Urine Creatinine Hepatitis C Antibody Crossmatch Crossmatch [place] 11/11/17 11/12/17 11/12/17 23:20 00:23 00:23 WBC RBC Hgb Hct MCV MCH MCHC RDW Plt Count Lymph % (Auto) [place] % (Auto) Eos % (Auto) Lymph # [place] # Eos # Baso # Seg Neutrophils % Seg Neuts % (Manual) Lymphocytes % (Manual) Monocytes % (Manual) Eosinophils % (Manual) Nucleated RBC % Seg Neutrophils # Seg Neutrophils # Man Lymphocytes # (Manual) Monocytes # (Manual) Eosinophils # (Manual) PT 16.7 H INR 1.28 H POC ABG pH POC ABG pCO2 POC ABG pO2 Sodium Potassium Chloride Carbon Dioxide BUN Creatinine Glucose POC Glucose Lactic Acid 3.20 H* Calcium Phosphorus Magnesium AST ALT Alkaline Phosphatase Troponin T C-Reactive Protein 25.70 H Total Protein Albumin LDL Cholesterol Direct HDL Cholesterol Urine Creatinine Hepatitis C Antibody Crossmatch Crossmatch [place] 11/12/17 11/12/17 11/12/17 00:46 01:27 01:27 WBC RBC Hgb Hct MCV MCH MCHC RDW Plt Count Lymph % (Auto) [place] % (Auto) Eos % (Auto) Lymph # [place] # Eos # Baso # Seg Neutrophils % Seg Neuts % (Manual) Lymphocytes % (Manual) Monocytes % (Manual) Eosinophils % (Manual) Nucleated RBC % Seg Neutrophils # Seg Neutrophils # Man Lymphocytes # (Manual) Monocytes # (Manual) Eosinophils # (Manual) PT INR POC ABG pH 7.495 H POC ABG pCO2 32.0 L POC ABG pO2 64 L Sodium Potassium Chloride Carbon Dioxide BUN Creatinine Glucose POC Glucose Lactic Acid 3.70 H* Calcium Phosphorus Magnesium AST ALT Alkaline Phosphatase Troponin T 0.096 H C-Reactive Protein Total Protein Albumin LDL Cholesterol Direct HDL Cholesterol Urine Creatinine Hepatitis C Antibody Crossmatch Crossmatch [place] 11/12/17 11/12/17 11/12/17 03:21 04:50 06:27 WBC RBC Hgb Hct MCV MCH MCHC RDW Plt Count Lymph % (Auto) [place] % (Auto) Eos % (Auto) Lymph # [place] # Eos # Baso # Seg Neutrophils % Seg Neuts % (Manual) Lymphocytes % (Manual) Monocytes % (Manual) Eosinophils % (Manual) Nucleated RBC % Seg Neutrophils # Seg Neutrophils # Man Lymphocytes # (Manual) Monocytes # (Manual) Eosinophils # (Manual) PT INR POC ABG pH POC ABG pCO2 POC ABG pO2 109 H Sodium Potassium Chloride Carbon Dioxide BUN Creatinine Glucose POC Glucose Lactic Acid 3.80 H* 2.20 H* Calcium Phosphorus Magnesium AST ALT Alkaline Phosphatase Troponin T C-Reactive Protein Total Protein Albumin LDL Cholesterol Direct HDL Cholesterol Urine Creatinine Hepatitis C Antibody Crossmatch Crossmatch [place] 11/12/17 11/12/17 11/12/17 09:24 09:24 09:24 WBC RBC Hgb 10.4 L Hct 33.4 L MCV MCH MCHC RDW Plt Count Lymph % (Auto) [place] % (Auto) Eos % (Auto) Lymph # [place] # Eos # Baso # Seg Neutrophils % Seg Neuts % (Manual) Lymphocytes % (Manual) Monocytes % (Manual) Eosinophils % (Manual) Nucleated RBC % Seg Neutrophils # Seg Neutrophils # Man Lymphocytes # (Manual) Monocytes # (Manual) Eosinophils # (Manual) PT INR POC ABG pH POC ABG pCO2 POC ABG pO2 Sodium Potassium Chloride Carbon Dioxide BUN Creatinine Glucose POC Glucose Lactic Acid 2.90 H* Calcium Phosphorus Magnesium AST ALT Alkaline Phosphatase Troponin T 0.091 H C-Reactive Protein Total Protein Albumin LDL Cholesterol Direct HDL Cholesterol Urine Creatinine Hepatitis C Antibody Crossmatch Crossmatch [place] 11/12/17 11/12/17 11/12/17 12:56 20:03 Unknown WBC RBC Hgb Hct MCV MCH MCHC RDW Plt Count Lymph % (Auto) [place] % (Auto) Eos % (Auto) Lymph # [place] # Eos # Baso # Seg Neutrophils % Seg Neuts % (Manual) Lymphocytes % (Manual) Monocytes % (Manual) Eosinophils % (Manual) Nucleated RBC % Seg Neutrophils # Seg Neutrophils # Man Lymphocytes # (Manual) Monocytes # (Manual) Eosinophils # (Manual) PT INR POC ABG pH POC ABG pCO2 POC ABG pO2 Sodium Potassium Chloride Carbon Dioxide BUN Creatinine Glucose POC Glucose Lactic Acid 3.60 H* Calcium Phosphorus Magnesium AST ALT Alkaline Phosphatase Troponin T 0.102 H* 0.156 H* D C-Reactive Protein Total Protein Albumin LDL Cholesterol Direct HDL Cholesterol Urine Creatinine Hepatitis C Antibody Crossmatch Crossmatch [place] 11/12/17 11/13/17 11/13/17 Unknown 04:50 04:50 WBC 12.2 H RBC 3.51 L Hgb 9.3 L Hct 30.1 L MCV MCH 26 L MCHC 31 L RDW 18.0 H Plt Count 128 L Lymph % (Auto) 8.6 L [place] % (Auto) 11.1 H Eos % (Auto) Lymph # 1.1 L [place] # 1.4 H Eos # Baso # Seg Neutrophils % 80.1 H Seg Neuts % (Manual) Lymphocytes % (Manual) Monocytes % (Manual) Eosinophils % (Manual) Nucleated RBC % Seg Neutrophils # 9.8 H Seg Neutrophils # Man Lymphocytes # (Manual) Monocytes # (Manual) Eosinophils # (Manual) PT INR POC ABG pH POC ABG pCO2 POC ABG pO2 Sodium 149 H Potassium 5.1 H Chloride 114.4 H Carbon Dioxide 18 L BUN 52 H Creatinine 3.3 H D Glucose 129 H POC Glucose Lactic Acid Calcium 7.9 L Phosphorus Magnesium AST ALT Alkaline Phosphatase Troponin T 0.098 H C-Reactive Protein Total Protein Albumin LDL Cholesterol Direct HDL Cholesterol Urine Creatinine Hepatitis C Antibody Crossmatch Crossmatch [place] 11/13/17 11/13/17 11/14/17 04:51 09:34 04:21 WBC RBC Hgb Hct MCV MCH MCHC RDW Plt Count Lymph % (Auto) [place] % (Auto) Eos % (Auto) Lymph # [place] # Eos # Baso # Seg Neutrophils % Seg Neuts % (Manual) Lymphocytes % (Manual) Monocytes % (Manual) Eosinophils % (Manual) Nucleated RBC % Seg Neutrophils # Seg Neutrophils # Man Lymphocytes # (Manual) Monocytes # (Manual) Eosinophils # (Manual) PT INR POC ABG pH POC ABG pCO2 30.1 L 29.8 L POC ABG pO2 135 H Sodium Potassium Chloride Carbon Dioxide BUN Creatinine Glucose POC Glucose Lactic Acid 2.10 H* Calcium Phosphorus Magnesium AST ALT Alkaline Phosphatase Troponin T C-Reactive Protein Total Protein Albumin LDL Cholesterol Direct HDL Cholesterol Urine Creatinine Hepatitis C Antibody Crossmatch Crossmatch [place] 11/15/17 11/15/17 11/16/17 04:52 15:50 05:17 WBC RBC Hgb Hct MCV MCH MCHC RDW Plt Count Lymph % (Auto) [place] % (Auto) Eos % (Auto) Lymph # [place] # Eos # Baso # Seg Neutrophils % Seg Neuts % (Manual) Lymphocytes % (Manual) Monocytes % (Manual) Eosinophils % (Manual) Nucleated RBC % Seg Neutrophils # Seg Neutrophils # Man Lymphocytes # (Manual) Monocytes # (Manual) Eosinophils # (Manual) PT INR POC ABG pH POC ABG pCO2 29.5 L 31.5 L POC ABG pO2 115 H 122 H Sodium 154 H Potassium Chloride 117.9 H Carbon Dioxide 19 L BUN 87 H Creatinine 4.1 H Glucose POC Glucose Lactic Acid Calcium 8.1 L Phosphorus Magnesium AST ALT Alkaline Phosphatase Troponin T C-Reactive Protein Total Protein Albumin LDL Cholesterol Direct HDL Cholesterol Urine Creatinine Hepatitis C Antibody Crossmatch Crossmatch [place] 11/16/17 11/17/17 11/17/17 16:37 04:07 10:00 WBC 14.7 H RBC 3.23 L Hgb 8.3 L Hct 28.1 L MCV MCH 26 L MCHC 30 L RDW 18.8 H Plt Count Lymph % (Auto) [place] % (Auto) Eos % (Auto) Lymph # [place] # Eos # Baso # Seg Neutrophils % Seg Neuts % (Manual) 75 H Lymphocytes % (Manual) 8.0 L Monocytes % (Manual) Eosinophils % (Manual) Nucleated RBC % 1.0 H Seg Neutrophils # Seg Neutrophils # Man 11.0 H Lymphocytes # (Manual) Monocytes # (Manual) 0.9 H Eosinophils # (Manual) PT INR POC ABG pH POC ABG pCO2 POC ABG pO2 Sodium 153 H 155 H Potassium Chloride 117.3 H 119.4 H Carbon Dioxide 19 L 20 L BUN 90 H 89 H Creatinine 3.9 H 3.6 H Glucose 111 H 115 H POC Glucose Lactic Acid Calcium 8.1 L 8.0 L Phosphorus Magnesium AST ALT Alkaline Phosphatase Troponin T C-Reactive Protein Total Protein Albumin LDL Cholesterol Direct HDL Cholesterol Urine Creatinine Hepatitis C Antibody Crossmatch Crossmatch [place] 11/18/17 11/18/17 11/18/17 04:34 04:34 04:34 WBC 15.5 H RBC 3.13 L Hgb 8.1 L Hct 26.3 L MCV MCH 26 L MCHC 31 L RDW 18.6 H Plt Count Lymph % (Auto) [place] % (Auto) Eos % (Auto) Lymph # [place] # Eos # Baso # Seg Neutrophils % Seg Neuts % (Manual) 81.0 H Lymphocytes % (Manual) 7.0 L Monocytes % (Manual) Eosinophils % (Manual) Nucleated RBC % 1.0 H Seg Neutrophils # Seg Neutrophils # Man 12.6 H Lymphocytes # (Manual) 1.1 L Monocytes # (Manual) Eosinophils # (Manual) PT 16.7 H INR 1.30 H POC ABG pH POC ABG pCO2 POC ABG pO2 Sodium 155 H Potassium 3.2 L Chloride 121.0 H Carbon Dioxide 20 L BUN 74 H Creatinine 2.9 H Glucose 126 H POC Glucose Lactic Acid Calcium 7.9 L Phosphorus Magnesium AST ALT Alkaline Phosphatase Troponin T C-Reactive Protein Total Protein Albumin LDL Cholesterol Direct HDL Cholesterol Urine Creatinine Hepatitis C Antibody Crossmatch Crossmatch [place] 11/19/17 11/19/17 11/20/17 04:44 04:44 00:38 WBC 19.0 H 22.2 H RBC 3.20 L 3.17 L Hgb 8.4 L 7.9 L Hct 27.9 L 26.4 L MCV 83 L MCH 26 L 25 L MCHC 30 L 30 L RDW 19.1 H 18.9 H Plt Count Lymph % (Auto) [place] % (Auto) Eos % (Auto) Lymph # [place] # Eos # Baso # Seg Neutrophils % Seg Neuts % (Manual) 83.0 H Lymphocytes % (Manual) 3.0 L Monocytes % (Manual) 9.0 H Eosinophils % (Manual) Nucleated RBC % Seg Neutrophils # Seg Neutrophils # Man 18.4 H Lymphocytes # (Manual) 0.7 L Monocytes # (Manual) 2.0 H Eosinophils # (Manual) PT INR POC ABG pH POC ABG pCO2 POC ABG pO2 Sodium 152 H Potassium Chloride 117.1 H Carbon Dioxide 17 L BUN 66 H Creatinine 2.8 H Glucose 119 H POC Glucose Lactic Acid Calcium 7.8 L Phosphorus Magnesium 2.70 H AST ALT Alkaline Phosphatase Troponin T C-Reactive Protein Total Protein Albumin LDL Cholesterol Direct HDL Cholesterol Urine Creatinine Hepatitis C Antibody Crossmatch Crossmatch [place] 11/20/17 11/20/17 11/20/17 03:29 04:48 13:38 WBC RBC Hgb Hct MCV MCH MCHC RDW Plt Count Lymph % (Auto) [place] % (Auto) Eos % (Auto) Lymph # [place] # Eos # Baso # Seg Neutrophils % Seg Neuts % (Manual) Lymphocytes % (Manual) Monocytes % (Manual) Eosinophils % (Manual) Nucleated RBC % Seg Neutrophils # Seg Neutrophils # Man Lymphocytes # (Manual) Monocytes # (Manual) Eosinophils # (Manual) PT INR POC ABG pH POC ABG pCO2 29.4 L POC ABG pO2 Sodium 148 H Potassium 3.4 L Chloride 113.7 H Carbon Dioxide 18 L BUN 59 H Creatinine 2.7 H Glucose 113 H POC Glucose 128 H Lactic Acid Calcium 7.8 L Phosphorus Magnesium AST ALT Alkaline Phosphatase Troponin T C-Reactive Protein Total Protein Albumin LDL Cholesterol Direct HDL Cholesterol Urine Creatinine Hepatitis C Antibody Crossmatch Crossmatch [place] 11/20/17 11/20/17 11/21/17 17:38 23:40 00:13 WBC RBC Hgb 8.4 L Hct 28.0 L MCV MCH MCHC RDW Plt Count Lymph % (Auto) [place] % (Auto) Eos % (Auto) Lymph # [place] # Eos # Baso # Seg Neutrophils % Seg Neuts % (Manual) Lymphocytes % (Manual) Monocytes % (Manual) Eosinophils % (Manual) Nucleated RBC % Seg Neutrophils # Seg Neutrophils # Man Lymphocytes # (Manual) Monocytes # (Manual) Eosinophils # (Manual) PT INR POC ABG pH POC ABG pCO2 POC ABG pO2 Sodium Potassium Chloride Carbon Dioxide BUN Creatinine Glucose POC Glucose 115 H 145 H Lactic Acid Calcium Phosphorus Magnesium AST ALT Alkaline Phosphatase Troponin T C-Reactive Protein Total Protein Albumin LDL Cholesterol Direct HDL Cholesterol Urine Creatinine Hepatitis C Antibody Crossmatch Crossmatch [place] 11/21/17 11/21/17 11/21/17 04:30 04:30 04:58 WBC 21.0 H RBC Hgb 9.6 L Hct 32.7 L MCV MCH 25 L MCHC 29 L RDW 19.7 H Plt Count 746 H Lymph % (Auto) [place] % (Auto) Eos % (Auto) Lymph # [place] # Eos # Baso # Seg Neutrophils % Seg Neuts % (Manual) Lymphocytes % (Manual) Monocytes % (Manual) Eosinophils % (Manual) Nucleated RBC % Seg Neutrophils # Seg Neutrophils # Man Lymphocytes # (Manual) Monocytes # (Manual) Eosinophils # (Manual) PT INR POC ABG pH POC ABG pCO2 POC ABG pO2 Sodium Potassium Chloride 109.4 H Carbon Dioxide 14 L BUN 59 H Creatinine 3.0 H Glucose 137 H POC Glucose 132 H Lactic Acid Calcium 7.6 L Phosphorus Magnesium AST ALT Alkaline Phosphatase Troponin T C-Reactive Protein Total Protein Albumin LDL Cholesterol Direct HDL Cholesterol Urine Creatinine Hepatitis C Antibody Crossmatch Crossmatch [place] 11/21/17 11/21/17 11/21/17 06:30 13:43 14:17 WBC 38.2 H RBC Hgb 9.0 L Hct 32.3 L MCV MCH 25 L MCHC 28 L RDW 20.0 H Plt Count 766 H Lymph % (Auto) [place] % (Auto) Eos % (Auto) Lymph # [place] # Eos # Baso # Seg Neutrophils % Seg Neuts % (Manual) 85.0 H Lymphocytes % (Manual) 1.0 L Monocytes % (Manual) Eosinophils % (Manual) Nucleated RBC % 2.0 H Seg Neutrophils # Seg Neutrophils # Man 32.5 H Lymphocytes # (Manual) 0.4 L Monocytes # (Manual) 2.3 H Eosinophils # (Manual) PT INR POC ABG pH POC ABG pCO2 18.6 L POC ABG pO2 121 H Sodium 146 H Potassium Chloride 110.9 H Carbon Dioxide 11 L BUN 62 H Creatinine 4.0 H Glucose 64 L POC Glucose Lactic Acid Calcium 7.6 L Phosphorus Magnesium AST ALT Alkaline Phosphatase Troponin T C-Reactive Protein Total Protein Albumin LDL Cholesterol Direct HDL Cholesterol Urine Creatinine Hepatitis C Antibody Crossmatch Crossmatch [place] 11/21/17 11/21/17 11/22/17 14:17 19:09 00:05 WBC RBC Hgb Hct MCV MCH MCHC RDW Plt Count Lymph % (Auto) [place] % (Auto) Eos % (Auto) Lymph # [place] # Eos # Baso # Seg Neutrophils % Seg Neuts % (Manual) Lymphocytes % (Manual) Monocytes % (Manual) Eosinophils % (Manual) Nucleated RBC % Seg Neutrophils # Seg Neutrophils # Man Lymphocytes # (Manual) Monocytes # (Manual) Eosinophils # (Manual) PT INR POC ABG pH POC ABG pCO2 20.0 L POC ABG pO2 Sodium Potassium Chloride Carbon Dioxide BUN Creatinine Glucose POC Glucose 127 H Lactic Acid 7.70 H* Calcium Phosphorus Magnesium AST ALT Alkaline Phosphatase Troponin T C-Reactive Protein Total Protein Albumin LDL Cholesterol Direct HDL Cholesterol Urine Creatinine Hepatitis C Antibody Crossmatch Crossmatch [place] 11/22/17 11/22/17 11/22/17 03:53 06:00 07:25 WBC RBC Hgb Hct MCV MCH MCHC RDW Plt Count Lymph % (Auto) [place] % (Auto) Eos % (Auto) Lymph # [place] # Eos # Baso # Seg Neutrophils % Seg Neuts % (Manual) Lymphocytes % (Manual) Monocytes % (Manual) Eosinophils % (Manual) Nucleated RBC % Seg Neutrophils # Seg Neutrophils # Man Lymphocytes # (Manual) Monocytes # (Manual) Eosinophils # (Manual) PT INR POC ABG pH POC ABG pCO2 22.2 L POC ABG pO2 Sodium 147 H Potassium Chloride 111.9 H Carbon Dioxide 16 L BUN 72 H Creatinine 5.1 H Glucose 181 H POC Glucose 180 H Lactic Acid Calcium 7.1 L Phosphorus Magnesium AST ALT Alkaline Phosphatase Troponin T C-Reactive Protein Total Protein Albumin LDL Cholesterol Direct HDL Cholesterol Urine Creatinine Hepatitis C Antibody Crossmatch Crossmatch [place] 11/22/17 11/22/17 11/22/17 07:25 07:25 12:05 WBC 31.4 H RBC 3.22 L Hgb 8.0 L Hct 26.7 L MCV 83 L MCH 25 L MCHC 30 L RDW 19.4 H Plt Count 602 H Lymph % (Auto) [place] % (Auto) Eos % (Auto) Lymph # [place] # Eos # Baso # Seg Neutrophils % Seg Neuts % (Manual) Lymphocytes % (Manual) Monocytes % (Manual) Eosinophils % (Manual) Nucleated RBC % Seg Neutrophils # Seg Neutrophils # Man Lymphocytes # (Manual) Monocytes # (Manual) Eosinophils # (Manual) PT INR POC ABG pH POC ABG pCO2 POC ABG pO2 Sodium Potassium Chloride Carbon Dioxide BUN Creatinine Glucose POC Glucose 182 H Lactic Acid 5.00 H* Calcium Phosphorus Magnesium AST ALT Alkaline Phosphatase Troponin T C-Reactive Protein Total Protein Albumin LDL Cholesterol Direct HDL Cholesterol Urine Creatinine Hepatitis C Antibody Crossmatch Crossmatch [place] 11/22/17 11/23/17 11/23/17 19:45 01:28 04:56 WBC RBC Hgb Hct MCV MCH MCHC RDW Plt Count Lymph % (Auto) [place] % (Auto) Eos % (Auto) Lymph # [place] # Eos # Baso # Seg Neutrophils % Seg Neuts % (Manual) Lymphocytes % (Manual) Monocytes % (Manual) Eosinophils % (Manual) Nucleated RBC % Seg Neutrophils # Seg Neutrophils # Man Lymphocytes # (Manual) Monocytes # (Manual) Eosinophils # (Manual) PT INR POC ABG pH 7.505 H POC ABG pCO2 26.3 L POC ABG pO2 Sodium Potassium Chloride Carbon Dioxide BUN Creatinine Glucose POC Glucose 165 H Lactic Acid Calcium Phosphorus Magnesium AST ALT Alkaline Phosphatase Troponin T C-Reactive Protein Total Protein Albumin LDL Cholesterol Direct HDL Cholesterol Urine Creatinine Hepatitis C Antibody Reactive A Crossmatch Crossmatch [place] 11/23/17 11/23/17 11/23/17 07:05 12:32 17:53 WBC RBC Hgb Hct MCV MCH MCHC RDW Plt Count Lymph % (Auto) [place] % (Auto) Eos % (Auto) Lymph # [place] # Eos # Baso # Seg Neutrophils % Seg Neuts % (Manual) Lymphocytes % (Manual) Monocytes % (Manual) Eosinophils % (Manual) Nucleated RBC % Seg Neutrophils # Seg Neutrophils # Man Lymphocytes # (Manual) Monocytes # (Manual) Eosinophils # (Manual) PT INR POC ABG pH POC ABG pCO2 POC ABG pO2 Sodium Potassium Chloride Carbon Dioxide 18 L BUN 61 H Creatinine 4.2 H Glucose 153 H POC Glucose 138 H 173 H Lactic Acid Calcium 7.5 L Phosphorus Magnesium AST ALT Alkaline Phosphatase Troponin T C-Reactive Protein Total Protein Albumin LDL Cholesterol Direct HDL Cholesterol Urine Creatinine Hepatitis C Antibody Crossmatch Crossmatch [place] 11/23/17 11/24/17 11/24/17 23:41 05:42 05:42 WBC 21.5 H RBC 2.48 L Hgb 6.2 L Hct 20.3 L D MCV 82 L MCH 25 L MCHC 31 L RDW 18.9 H Plt Count Lymph % (Auto) [place] % (Auto) Eos % (Auto) Lymph # [place] # Eos # Baso # Seg Neutrophils % Seg Neuts % (Manual) 94.0 H Lymphocytes % (Manual) 3.0 L Monocytes % (Manual) Eosinophils % (Manual) Nucleated RBC % Seg Neutrophils # Seg Neutrophils # Man 20.2 H Lymphocytes # (Manual) 0.6 L Monocytes # (Manual) Eosinophils # (Manual) PT INR POC ABG pH POC ABG pCO2 POC ABG pO2 Sodium 149 H Potassium 2.8 L* D Chloride 113.9 H Carbon Dioxide 19 L BUN 31 H Creatinine 2.3 H Glucose 103 H POC Glucose 133 H Lactic Acid Calcium 5.3 L* D Phosphorus Magnesium 1.30 L AST ALT Alkaline Phosphatase Troponin T C-Reactive Protein Total Protein Albumin LDL Cholesterol Direct HDL Cholesterol Urine Creatinine Hepatitis C Antibody Crossmatch Crossmatch [place] 11/24/17 11/24/17 11/24/17 05:42 08:27 08:27 WBC RBC Hgb Hct MCV MCH MCHC RDW Plt Count Lymph % (Auto) [place] % (Auto) Eos % (Auto) Lymph # [place] # Eos # Baso # Seg Neutrophils % Seg Neuts % (Manual) Lymphocytes % (Manual) Monocytes % (Manual) Eosinophils % (Manual) Nucleated RBC % Seg Neutrophils # Seg Neutrophils # Man Lymphocytes # (Manual) Monocytes # (Manual) Eosinophils # (Manual) PT INR POC ABG pH POC ABG pCO2 POC ABG pO2 Sodium Potassium Chloride Carbon Dioxide BUN Creatinine Glucose POC Glucose Lactic Acid 5.40 H* 5.20 H* Calcium Phosphorus Magnesium AST ALT Alkaline Phosphatase Troponin T C-Reactive Protein Total Protein Albumin LDL Cholesterol Direct HDL Cholesterol Urine Creatinine Hepatitis C Antibody Crossmatch See Detail Crossmatch [place]armed 11/24/17 11/24/17 11/24/17 12:13 17:22 21:53 WBC 23.0 H RBC 3.32 L Hgb 8.8 L Hct 27.1 L D MCV 82 L MCH 26 L MCHC RDW 17.3 H Plt Count Lymph % (Auto) [place] % (Auto) Eos % (Auto) Lymph # [place] # Eos # Baso # Seg Neutrophils % Seg Neuts % (Manual) Lymphocytes % (Manual) Monocytes % (Manual) Eosinophils % (Manual) Nucleated RBC % Seg Neutrophils # Seg Neutrophils # Man Lymphocytes # (Manual) Monocytes # (Manual) Eosinophils # (Manual) PT INR POC ABG pH POC ABG pCO2 POC ABG pO2 Sodium Potassium Chloride Carbon Dioxide BUN Creatinine Glucose POC Glucose 138 H 180 H Lactic Acid Calcium Phosphorus Magnesium AST ALT Alkaline Phosphatase Troponin T C-Reactive Protein Total Protein Albumin LDL Cholesterol Direct HDL Cholesterol Urine Creatinine Hepatitis C Antibody Crossmatch Crossmatch [place] 11/24/17 11/24/17 11/25/17 21:53 23:28 04:19 WBC RBC Hgb Hct MCV MCH MCHC RDW Plt Count Lymph % (Auto) [place] % (Auto) Eos % (Auto) Lymph # [place] # Eos # Baso # Seg Neutrophils % Seg Neuts % (Manual) Lymphocytes % (Manual) Monocytes % (Manual) Eosinophils % (Manual) Nucleated RBC % Seg Neutrophils # Seg Neutrophils # Man Lymphocytes # (Manual) Monocytes # (Manual) Eosinophils # (Manual) PT INR POC ABG pH POC ABG pCO2 POC ABG pO2 Sodium Potassium Chloride 96.3 L Carbon Dioxide BUN 28 H 31 H Creatinine 2.3 H 2.6 H Glucose 125 H 101 H POC Glucose 111 H Lactic Acid Calcium 7.5 L D 7.4 L Phosphorus Magnesium AST 170 H ALT 179 H Alkaline Phosphatase 175 H Troponin T C-Reactive Protein Total Protein 5.5 L Albumin 1.8 L LDL Cholesterol Direct HDL Cholesterol Urine Creatinine Hepatitis C Antibody Crossmatch Crossmatch [place] 11/25/17 11/25/17 11/26/17 04:19 04:19 06:29 WBC 22.5 H RBC 3.48 L Hgb 9.1 L Hct 28.3 L MCV 81 L MCH 26 L MCHC RDW 17.4 H Plt Count Lymph % (Auto) [place] % (Auto) Eos % (Auto) Lymph # [place] # Eos # Baso # Seg Neutrophils % Seg Neuts % (Manual) Lymphocytes % (Manual) Monocytes % (Manual) Eosinophils % (Manual) Nucleated RBC % Seg Neutrophils # Seg Neutrophils # Man Lymphocytes # (Manual) Monocytes # (Manual) Eosinophils # (Manual) PT 23.6 H INR 1.96 H POC ABG pH POC ABG pCO2 POC ABG pO2 Sodium Potassium Chloride Carbon Dioxide BUN 31 H Creatinine 2.6 H Glucose 101 H POC Glucose Lactic Acid Calcium 7.5 L Phosphorus Magnesium AST ALT Alkaline Phosphatase Troponin T C-Reactive Protein Total Protein Albumin LDL Cholesterol Direct HDL Cholesterol Urine Creatinine Hepatitis C Antibody Crossmatch Crossmatch [facility] 11/26/17 11/27/17 11/27/17 06:34 04:06 04:06 WBC 11.3 H RBC 3.13 L Hgb 8.4 L Hct 25.8 L MCV 82 L MCH 27 L MCHC RDW 17.7 H Plt Count Lymph % (Auto) 7.4 L [place] % (Auto) Eos % (Auto) Lymph # 0.8 L [place] # Eos # Baso # Seg Neutrophils % 83.7 H Seg Neuts % (Manual) Lymphocytes % (Manual) Monocytes % (Manual) Eosinophils % (Manual) Nucleated RBC % Seg Neutrophils # 9.5 H Seg Neutrophils # Man Lymphocytes # (Manual) Monocytes # (Manual) Eosinophils # (Manual) PT INR POC ABG pH POC ABG pCO2 POC ABG pO2 Sodium Potassium Chloride 97.9 L Carbon Dioxide BUN 43 H 29 H Creatinine 3.5 H 2.9 H Glucose POC Glucose Lactic Acid Calcium 7.5 L 8.1 L Phosphorus Magnesium AST ALT Alkaline Phosphatase Troponin T C-Reactive Protein Total Protein Albumin LDL Cholesterol Direct HDL Cholesterol Urine Creatinine Hepatitis C Antibody Crossmatch Crossmatch [facility] 11/27/17 11/28/17 11/28/17 18:11 00:16 03:50 WBC RBC Hgb Hct MCV MCH MCHC RDW Plt Count Lymph % (Auto) [place] % (Auto) Eos % (Auto) Lymph # [place] # Eos # Baso # Seg Neutrophils % Seg Neuts % (Manual) Lymphocytes % (Manual) Monocytes % (Manual) Eosinophils % (Manual) Nucleated RBC % Seg Neutrophils # Seg Neutrophils # Man Lymphocytes # (Manual) Monocytes # (Manual) Eosinophils # (Manual) PT INR POC ABG pH POC ABG pCO2 POC ABG pO2 Sodium Potassium Chloride Carbon Dioxide BUN 39 H Creatinine 4.1 H Glucose 108 H POC Glucose 110 H 124 H Lactic Acid Calcium 7.9 L Phosphorus Magnesium AST ALT Alkaline Phosphatase Troponin T C-Reactive Protein Total Protein Albumin LDL Cholesterol Direct HDL Cholesterol Urine Creatinine Hepatitis C Antibody Crossmatch Crossmatch [facility] 11/28/17 11/28/17 11/28/17 05:03 11:36 17:42 WBC RBC Hgb Hct MCV MCH MCHC RDW Plt Count Lymph % (Auto) [place] % (Auto) Eos % (Auto) Lymph # [place] # Eos # Baso # Seg Neutrophils % Seg Neuts % (Manual) Lymphocytes % (Manual) Monocytes % (Manual) Eosinophils % (Manual) Nucleated RBC % Seg Neutrophils # Seg Neutrophils # Man Lymphocytes # (Manual) Monocytes # (Manual) Eosinophils # (Manual) PT INR POC ABG pH POC ABG pCO2 POC ABG pO2 Sodium Potassium Chloride Carbon Dioxide BUN Creatinine Glucose POC Glucose 134 H 114 H 119 H Lactic Acid Calcium Phosphorus Magnesium AST ALT Alkaline Phosphatase Troponin T C-Reactive Protein Total Protein Albumin LDL Cholesterol Direct HDL Cholesterol Urine Creatinine Hepatitis C Antibody Crossmatch Crossmatch [facility] 11/29/17 11/29/17 11/29/17 00:22 05:25 05:25 WBC 12.3 H RBC 3.34 L Hgb 8.6 L Hct 27.3 L MCV 82 L MCH 26 L MCHC RDW 18.5 H Plt Count Lymph % (Auto) 3.7 L [place] % (Auto) 7.7 H Eos % (Auto) Lymph # 0.5 L [place] # 1.0 H Eos # Baso # Seg Neutrophils % 86.5 H Seg Neuts % (Manual) Lymphocytes % (Manual) Monocytes % (Manual) Eosinophils % (Manual) Nucleated RBC % Seg Neutrophils # 10.7 H Seg Neutrophils # Man Lymphocytes # (Manual) Monocytes # (Manual) Eosinophils # (Manual) PT INR POC ABG pH POC ABG pCO2 POC ABG pO2 Sodium Potassium Chloride Carbon Dioxide BUN 29 H Creatinine 3.5 H Glucose 109 H POC Glucose 137 H Lactic Acid Calcium 7.8 L Phosphorus Magnesium AST ALT Alkaline Phosphatase Troponin T C-Reactive Protein Total Protein Albumin LDL Cholesterol Direct HDL Cholesterol Urine Creatinine Hepatitis C Antibody Crossmatch Crossmatch [facility] 11/29/17 11/30/17 11/30/17 05:26 00:26 04:17 WBC RBC Hgb Hct MCV MCH MCHC RDW Plt Count Lymph % (Auto) [place] % (Auto) Eos % (Auto) Lymph # [place] # Eos # Baso # Seg Neutrophils % Seg Neuts % (Manual) Lymphocytes % (Manual) Monocytes % (Manual) Eosinophils % (Manual) Nucleated RBC % Seg Neutrophils # Seg Neutrophils # Man Lymphocytes # (Manual) Monocytes # (Manual) Eosinophils # (Manual) PT INR POC ABG pH POC ABG pCO2 POC ABG pO2 Sodium Potassium Chloride Carbon Dioxide BUN 38 H Creatinine 4.3 H Glucose 109 H POC Glucose 129 H 152 H Lactic Acid Calcium 7.8 L Phosphorus Magnesium AST ALT Alkaline Phosphatase Troponin T C-Reactive Protein Total Protein Albumin LDL Cholesterol Direct HDL Cholesterol Urine Creatinine Hepatitis C Antibody Crossmatch Crossmatch [facility] 11/30/17 11/30/17 11/30/17 12:17 16:23 23:35 WBC RBC Hgb Hct MCV MCH MCHC RDW Plt Count Lymph % (Auto) [place] % (Auto) Eos % (Auto) Lymph # [place] # Eos # Baso # Seg Neutrophils % Seg Neuts % (Manual) Lymphocytes % (Manual) Monocytes % (Manual) Eosinophils % (Manual) Nucleated RBC % Seg Neutrophils # Seg Neutrophils # Man Lymphocytes # (Manual) Monocytes # (Manual) Eosinophils # (Manual) PT INR POC ABG pH POC ABG pCO2 POC ABG pO2 Sodium Potassium Chloride Carbon Dioxide BUN Creatinine Glucose POC Glucose 170 H 114 H 122 H Lactic Acid Calcium Phosphorus Magnesium AST ALT Alkaline Phosphatase Troponin T C-Reactive Protein Total Protein Albumin LDL Cholesterol Direct HDL Cholesterol Urine Creatinine Hepatitis C Antibody Crossmatch Crossmatch [facility] 12/01/17 12/01/17 12/01/17 04:09 04:09 12:17 WBC 14.1 H RBC 3.32 L Hgb 8.6 L Hct 27.0 L MCV 81 L MCH 26 L MCHC RDW 18.7 H Plt Count Lymph % (Auto) 5.5 L [place] % (Auto) 9.7 H Eos % (Auto) Lymph # 0.8 L [place] # 1.4 H Eos # Baso # Seg Neutrophils % 82.9 H Seg Neuts % (Manual) Lymphocytes % (Manual) Monocytes % (Manual) Eosinophils % (Manual) Nucleated RBC % Seg Neutrophils # 11.7 H Seg Neutrophils # Man Lymphocytes # (Manual) Monocytes # (Manual) Eosinophils # (Manual) PT INR POC ABG pH POC ABG pCO2 POC ABG pO2 Sodium Potassium 3.4 L Chloride Carbon Dioxide BUN 21 H Creatinine 3.0 H Glucose 108 H POC Glucose 126 H Lactic Acid Calcium 8.0 L Phosphorus Magnesium AST ALT Alkaline Phosphatase Troponin T C-Reactive Protein Total Protein Albumin LDL Cholesterol Direct HDL Cholesterol Urine Creatinine Hepatitis C Antibody Crossmatch Crossmatch [facility] 12/02/17 12/03/17 12/03/17 23:46 02:52 05:54 WBC 17.2 H RBC 3.21 L Hgb 8.5 L Hct 25.8 L MCV 80 L MCH 26 L MCHC RDW 18.4 H Plt Count 128 L Lymph % (Auto) [place] % (Auto) Eos % (Auto) Lymph # [place] # Eos # Baso # Seg Neutrophils % Seg Neuts % (Manual) Lymphocytes % (Manual) Monocytes % (Manual) Eosinophils % (Manual) Nucleated RBC % Seg Neutrophils # Seg Neutrophils # Man Lymphocytes # (Manual) Monocytes # (Manual) Eosinophils # (Manual) PT INR POC ABG pH POC ABG pCO2 POC ABG pO2 Sodium Potassium Chloride Carbon Dioxide BUN Creatinine Glucose POC Glucose 125 H 107 H Lactic Acid Calcium Phosphorus Magnesium AST ALT Alkaline Phosphatase Troponin T C-Reactive Protein Total Protein Albumin LDL Cholesterol Direct HDL Cholesterol Urine Creatinine Hepatitis C Antibody Crossmatch Crossmatch [facility] 12/03/17 12/03/17 12/04/17 12:05 Unknown 12:26 WBC RBC Hgb Hct MCV MCH MCHC RDW Plt Count Lymph % (Auto) [place] % (Auto) Eos % (Auto) Lymph # [place] # Eos # Baso # Seg Neutrophils % Seg Neuts % (Manual) Lymphocytes % (Manual) Monocytes % (Manual) Eosinophils % (Manual) Nucleated RBC % Seg Neutrophils # Seg Neutrophils # Man Lymphocytes # (Manual) Monocytes # (Manual) Eosinophils # (Manual) PT INR POC ABG pH POC ABG pCO2 POC ABG pO2 Sodium Potassium Chloride Carbon Dioxide BUN 21 H Creatinine 2.8 H Glucose 113 H POC Glucose 106 H 119 H Lactic Acid Calcium Phosphorus Magnesium AST ALT Alkaline Phosphatase Troponin T C-Reactive Protein Total Protein Albumin LDL Cholesterol Direct HDL Cholesterol Urine Creatinine Hepatitis C Antibody Crossmatch Crossmatch [facility] 12/04/17 12/05/17 12/05/17 17:57 00:52 04:05 WBC RBC 2.96 L Hgb 7.7 L Hct 24.2 L MCV 82 L MCH 26 L MCHC RDW 18.8 H Plt Count 105 L Lymph % (Auto) 10.6 L [place] % (Auto) 12.1 H Eos % (Auto) 5.2 H Lymph # 1.1 L [place] # 1.3 H Eos # 0.5 H Baso # Seg Neutrophils % 71.3 H Seg Neuts % (Manual) Lymphocytes % (Manual) Monocytes % (Manual) Eosinophils % (Manual) Nucleated RBC % Seg Neutrophils # Seg Neutrophils # Man Lymphocytes # (Manual) Monocytes # (Manual) Eosinophils # (Manual) PT INR POC ABG pH POC ABG pCO2 POC ABG pO2 Sodium Potassium Chloride Carbon Dioxide BUN Creatinine Glucose POC Glucose 140 H 117 H Lactic Acid Calcium Phosphorus Magnesium AST ALT Alkaline Phosphatase Troponin T C-Reactive Protein Total Protein Albumin LDL Cholesterol Direct HDL Cholesterol Urine Creatinine Hepatitis C Antibody Crossmatch Crossmatch [facility] 12/05/17 12/05/17 12/06/17 04:05 22:50 08:18 WBC RBC 2.80 L Hgb 7.4 L Hct 23.0 L MCV 82 L MCH 27 L MCHC RDW 19.5 H Plt Count 125 L Lymph % (Auto) [place] % (Auto) Eos % (Auto) Lymph # [place] # Eos # Baso # Seg Neutrophils % Seg Neuts % (Manual) Lymphocytes % (Manual) Monocytes % (Manual) Eosinophils % (Manual) Nucleated RBC % Seg Neutrophils # Seg Neutrophils # Man Lymphocytes # (Manual) Monocytes # (Manual) Eosinophils # (Manual) PT INR POC ABG pH POC ABG pCO2 POC ABG pO2 Sodium Potassium Chloride 107.4 H Carbon Dioxide BUN Creatinine 2.5 H Glucose POC Glucose 112 H Lactic Acid Calcium 8.3 L Phosphorus Magnesium AST ALT Alkaline Phosphatase Troponin T C-Reactive Protein Total Protein Albumin LDL Cholesterol Direct HDL Cholesterol Urine Creatinine Hepatitis C Antibody Crossmatch Crossmatch [facility] 12/06/17 12/06/17 12/06/17 08:18 12:01 23:58 WBC RBC Hgb Hct MCV MCH MCHC RDW Plt Count Lymph % (Auto) [place] % (Auto) Eos % (Auto) Lymph # [place] # Eos # Baso # Seg Neutrophils % Seg Neuts % (Manual) Lymphocytes % (Manual) Monocytes % (Manual) Eosinophils % (Manual) Nucleated RBC % Seg Neutrophils # Seg Neutrophils # Man Lymphocytes # (Manual) Monocytes # (Manual) Eosinophils # (Manual) PT INR POC ABG pH POC ABG pCO2 POC ABG pO2 Sodium Potassium Chloride 108.4 H Carbon Dioxide BUN 28 H Creatinine 3.7 H Glucose 103 H POC Glucose 106 H 108 H Lactic Acid Calcium 8.0 L Phosphorus Magnesium AST ALT Alkaline Phosphatase Troponin T C-Reactive Protein Total Protein Albumin LDL Cholesterol Direct HDL Cholesterol Urine Creatinine Hepatitis C Antibody Crossmatch Crossmatch [facility] 12/07/17 12/07/17 12/07/17 05:47 05:47 18:03 WBC RBC 2.79 L Hgb 7.3 L Hct 22.8 L MCV 82 L MCH 26 L MCHC RDW 19.1 H Plt Count 101 L Lymph % (Auto) [place] % (Auto) Eos % (Auto) Lymph # [place] # Eos # Baso # Seg Neutrophils % Seg Neuts % (Manual) 72.0 H Lymphocytes % (Manual) 13.0 L Monocytes % (Manual) Eosinophils % (Manual) 9.0 H Nucleated RBC % Seg Neutrophils # Seg Neutrophils # Man Lymphocytes # (Manual) 1.1 L Monocytes # (Manual) Eosinophils # (Manual) 0.8 H PT INR POC ABG pH POC ABG pCO2 POC ABG pO2 Sodium 146 H Potassium Chloride 109.8 H Carbon Dioxide BUN 36 H Creatinine 4.0 H Glucose POC Glucose 143 H Lactic Acid Calcium 8.0 L Phosphorus Magnesium AST ALT Alkaline Phosphatase Troponin T C-Reactive Protein Total Protein Albumin LDL Cholesterol Direct HDL Cholesterol Urine Creatinine Hepatitis C Antibody Crossmatch Crossmatch [facility] 12/07/17 12/08/17 12/08/17 23:33 05:10 05:10 WBC RBC 2.91 L Hgb 7.5 L Hct 24.4 L MCV MCH 26 L MCHC 31 L RDW 19.7 H Plt Count 109 L Lymph % (Auto) [place] % (Auto) Eos % (Auto) Lymph # [place] # Eos # Baso # Seg Neutrophils % Seg Neuts % (Manual) Lymphocytes % (Manual) 11.0 L Monocytes % (Manual) Eosinophils % (Manual) 12.0 H Nucleated RBC % Seg Neutrophils # Seg Neutrophils # Man Lymphocytes # (Manual) 0.7 L Monocytes # (Manual) Eosinophils # (Manual) 0.7 H PT INR POC ABG pH POC ABG pCO2 POC ABG pO2 Sodium 147 H Potassium Chloride 110.4 H Carbon Dioxide BUN Creatinine 2.8 H Glucose POC Glucose 107 H Lactic Acid Calcium 7.8 L Phosphorus Magnesium AST ALT Alkaline Phosphatase Troponin T C-Reactive Protein Total Protein Albumin LDL Cholesterol Direct HDL Cholesterol Urine Creatinine Hepatitis C Antibody Crossmatch Crossmatch [facility] 12/09/17 12/09/17 12/09/17 04:18 04:18 12:16 WBC RBC Hgb 7.2 L Hct 23.2 L MCV MCH MCHC RDW Plt Count Lymph % (Auto) [place] % (Auto) Eos % (Auto) Lymph # [place] # Eos # Baso # Seg Neutrophils % Seg Neuts % (Manual) Lymphocytes % (Manual) Monocytes % (Manual) Eosinophils % (Manual) Nucleated RBC % Seg Neutrophils # Seg Neutrophils # Man Lymphocytes # (Manual) Monocytes # (Manual) Eosinophils # (Manual) PT INR POC ABG pH POC ABG pCO2 POC ABG pO2 Sodium 150 H Potassium Chloride 114.5 H Carbon Dioxide BUN 25 H Creatinine 3.3 H Glucose POC Glucose 142 H Lactic Acid Calcium 7.7 L Phosphorus Magnesium AST ALT Alkaline Phosphatase Troponin T C-Reactive Protein Total Protein Albumin LDL Cholesterol Direct HDL Cholesterol Urine Creatinine Hepatitis C Antibody Crossmatch Crossmatch [facility] 12/10/17 12/10/17 12/11/17 05:14 05:14 12:05 WBC RBC 2.81 L Hgb 7.4 L Hct 23.9 L MCV MCH 26 L MCHC 31 L RDW 19.1 H Plt Count 128 L Lymph % (Auto) [place] % (Auto) Eos % (Auto) Lymph # [place] # Eos # Baso # Seg Neutrophils % Seg Neuts % (Manual) 78.0 H Lymphocytes % (Manual) 8.0 L Monocytes % (Manual) Eosinophils % (Manual) 5.0 H Nucleated RBC % Seg Neutrophils # Seg Neutrophils # Man Lymphocytes # (Manual) 0.6 L Monocytes # (Manual) Eosinophils # (Manual) PT INR POC ABG pH POC ABG pCO2 POC ABG pO2 Sodium Potassium Chloride Carbon Dioxide BUN Creatinine 2.2 H Glucose POC Glucose 127 H Lactic Acid Calcium 7.8 L Phosphorus Magnesium AST ALT Alkaline Phosphatase Troponin T C-Reactive Protein Total Protein Albumin LDL Cholesterol Direct HDL Cholesterol Urine Creatinine Hepatitis C Antibody Crossmatch Crossmatch [facility] 12/11/17 12/11/17 12/11/17 15:26 18:36 23:40 WBC RBC Hgb Hct MCV MCH MCHC RDW Plt Count Lymph % (Auto) [place] % (Auto) Eos % (Auto) Lymph # [place] # Eos # Baso # Seg Neutrophils % Seg Neuts % (Manual) Lymphocytes % (Manual) Monocytes % (Manual) Eosinophils % (Manual) Nucleated RBC % Seg Neutrophils # Seg Neutrophils # Man Lymphocytes # (Manual) Monocytes # (Manual) Eosinophils # (Manual) PT INR POC ABG pH POC ABG pCO2 POC ABG pO2 Sodium Potassium 3.3 L Chloride Carbon Dioxide BUN Creatinine 1.6 H Glucose POC Glucose 106 H 110 H Lactic Acid Calcium 7.6 L Phosphorus Magnesium AST ALT Alkaline Phosphatase Troponin T C-Reactive Protein Total Protein Albumin LDL Cholesterol Direct HDL Cholesterol Urine Creatinine Hepatitis C Antibody Crossmatch Crossmatch [facility] 12/12/17 12/12/17 12/12/17 05:10 05:41 05:41 WBC RBC 3.17 L Hgb 8.1 L Hct 25.7 L MCV 81 L MCH 25 L MCHC 31 L RDW 19.2 H Plt Count Lymph % (Auto) [place] % (Auto) Eos % (Auto) Lymph # [place] # Eos # Baso # Seg Neutrophils % Seg Neuts % (Manual) 74.0 H Lymphocytes % (Manual) 6.0 L Monocytes % (Manual) Eosinophils % (Manual) 9.0 H Nucleated RBC % Seg Neutrophils # Seg Neutrophils # Man Lymphocytes # (Manual) 0.6 L Monocytes # (Manual) Eosinophils # (Manual) 0.9 H PT INR POC ABG pH POC ABG pCO2 POC ABG pO2 Sodium Potassium 3.5 L Chloride Carbon Dioxide BUN Creatinine 2.3 H Glucose 113 H POC Glucose 112 H Lactic Acid Calcium 7.5 L Phosphorus Magnesium AST ALT Alkaline Phosphatase Troponin T C-Reactive Protein Total Protein Albumin LDL Cholesterol Direct HDL Cholesterol Urine Creatinine Hepatitis C Antibody Crossmatch Crossmatch [facility] 12/13/17 12/13/17 12/13/17 06:14 12:00 17:37 WBC RBC Hgb Hct MCV MCH MCHC RDW Plt Count Lymph % (Auto) [place] % (Auto) Eos % (Auto) Lymph # [place] # Eos # Baso # Seg Neutrophils % Seg Neuts % (Manual) Lymphocytes % (Manual) Monocytes % (Manual) Eosinophils % (Manual) Nucleated RBC % Seg Neutrophils # Seg Neutrophils # Man Lymphocytes # (Manual) Monocytes # (Manual) Eosinophils # (Manual) PT INR POC ABG pH POC ABG pCO2 POC ABG pO2 Sodium Potassium Chloride Carbon Dioxide BUN Creatinine Glucose POC Glucose 130 H 133 H 136 H Lactic Acid Calcium Phosphorus Magnesium AST ALT Alkaline Phosphatase Troponin T C-Reactive Protein Total Protein Albumin LDL Cholesterol Direct HDL Cholesterol Urine Creatinine Hepatitis C Antibody Crossmatch Crossmatch [facility] 12/13/17 12/14/17 12/14/17 23:39 05:11 05:11 WBC RBC Hgb Hct MCV MCH MCHC RDW Plt Count Lymph % (Auto) [place] % (Auto) Eos % (Auto) Lymph # [place] # Eos # Baso # Seg Neutrophils % Seg Neuts % (Manual) Lymphocytes % (Manual) Monocytes % (Manual) Eosinophils % (Manual) Nucleated RBC % Seg Neutrophils # Seg Neutrophils # Man Lymphocytes # (Manual) Monocytes # (Manual) Eosinophils # (Manual) PT 15.4 H INR 1.17 H POC ABG pH POC ABG pCO2 POC ABG pO2 Sodium Potassium Chloride Carbon Dioxide 21 L BUN 26 H Creatinine 2.9 H Glucose POC Glucose 108 H Lactic Acid Calcium 7.2 L Phosphorus Magnesium AST ALT Alkaline Phosphatase Troponin T C-Reactive Protein Total Protein Albumin LDL Cholesterol Direct HDL Cholesterol Urine Creatinine Hepatitis C Antibody Crossmatch Crossmatch [facility] 12/14/17 12/14/17 12/14/17 12:00 16:01 18:24 WBC 12.9 H RBC 3.25 L Hgb 8.2 L Hct 26.2 L MCV 81 L MCH 25 L MCHC 31 L RDW 19.2 H Plt Count Lymph % (Auto) [place] % (Auto) Eos % (Auto) Lymph # [place] # Eos # Baso # Seg Neutrophils % Seg Neuts % (Manual) Lymphocytes % (Manual) Monocytes % (Manual) Eosinophils % (Manual) Nucleated RBC % Seg Neutrophils # Seg Neutrophils # Man Lymphocytes # (Manual) Monocytes # (Manual) Eosinophils # (Manual) PT INR POC ABG pH POC ABG pCO2 POC ABG pO2 Sodium Potassium Chloride Carbon Dioxide BUN Creatinine Glucose POC Glucose 138 H 120 H Lactic Acid Calcium Phosphorus Magnesium AST ALT Alkaline Phosphatase Troponin T C-Reactive Protein Total Protein Albumin LDL Cholesterol Direct HDL Cholesterol Urine Creatinine Hepatitis C Antibody Crossmatch Crossmatch [facility] 12/14/17 12/14/17 12/15/17 23:29 Unknown 05:57 WBC 12.5 H RBC 2.48 L Hgb 6.0 L Hct 24.4 L MCV 79 L MCH 24 L MCHC 30 L RDW 18.5 H Plt Count 131 L Lymph % (Auto) 7.0 L [place] % (Auto) 8.9 H Eos % (Auto) 8.3 H Lymph # 0.9 L [place] # 1.1 H Eos # 1.0 H Baso # Seg Neutrophils % 75.2 H Seg Neuts % (Manual) Lymphocytes % (Manual) Monocytes % (Manual) Eosinophils % (Manual) Nucleated RBC % Seg Neutrophils # 9.4 H Seg Neutrophils # Man Lymphocytes # (Manual) Monocytes # (Manual) Eosinophils # (Manual) PT INR POC ABG pH POC ABG pCO2 POC ABG pO2 Sodium Potassium Chloride Carbon Dioxide BUN Creatinine Glucose POC Glucose 110 H 113 H Lactic Acid Calcium Phosphorus Magnesium AST ALT Alkaline Phosphatase Troponin T C-Reactive Protein Total Protein Albumin LDL Cholesterol Direct HDL Cholesterol Urine Creatinine Hepatitis C Antibody Crossmatch Crossmatch [facility] 12/15/17 12/15/17 12/15/17 11:50 13:37 17:58 WBC RBC Hgb 7.3 L Hct 23.3 L MCV MCH MCHC RDW Plt Count Lymph % (Auto) [place] % (Auto) Eos % (Auto) Lymph # [place] # Eos # Baso # Seg Neutrophils % Seg Neuts % (Manual) Lymphocytes % (Manual) Monocytes % (Manual) Eosinophils % (Manual) Nucleated RBC % Seg Neutrophils # Seg Neutrophils # Man Lymphocytes # (Manual) Monocytes # (Manual) Eosinophils # (Manual) PT INR POC ABG pH POC ABG pCO2 POC ABG pO2 Sodium Potassium Chloride Carbon Dioxide BUN Creatinine Glucose POC Glucose 106 H 110 H Lactic Acid Calcium Phosphorus Magnesium AST ALT Alkaline Phosphatase Troponin T C-Reactive Protein Total Protein Albumin LDL Cholesterol Direct HDL Cholesterol Urine Creatinine Hepatitis C Antibody Crossmatch Crossmatch [facility] 12/15/17 12/16/17 12/16/17 23:30 04:55 05:14 WBC 13.2 H RBC 2.79 L Hgb 6.9 L Hct 22.2 L MCV 80 L MCH 25 L MCHC 31 L RDW 18.8 H Plt Count Lymph % (Auto) 7.3 L [place] % (Auto) 11.0 H Eos % (Auto) 8.2 H Lymph # 1.0 L [place] # 1.4 H Eos # 1.1 H Baso # Seg Neutrophils % 72.9 H Seg Neuts % (Manual) Lymphocytes % (Manual) Monocytes % (Manual) Eosinophils % (Manual) Nucleated RBC % Seg Neutrophils # 9.6 H Seg Neutrophils # Man Lymphocytes # (Manual) Monocytes # (Manual) Eosinophils # (Manual) PT INR POC ABG pH POC ABG pCO2 POC ABG pO2 Sodium 131 L D Potassium 2.8 L* D Chloride 93.2 L Carbon Dioxide BUN 24 H Creatinine 2.0 H Glucose POC Glucose 111 H Lactic Acid Calcium 7.7 L Phosphorus Magnesium AST ALT Alkaline Phosphatase Troponin T C-Reactive Protein Total Protein Albumin LDL Cholesterol Direct HDL Cholesterol Urine Creatinine Hepatitis C Antibody Crossmatch Crossmatch [facility] 12/16/17 12/16/17 12/16/17 13:01 17:32 23:39 WBC RBC Hgb Hct MCV MCH MCHC RDW Plt Count Lymph % (Auto) [place] % (Auto) Eos % (Auto) Lymph # [place] # Eos # Baso # Seg Neutrophils % Seg Neuts % (Manual) Lymphocytes % (Manual) Monocytes % (Manual) Eosinophils % (Manual) Nucleated RBC % Seg Neutrophils # Seg Neutrophils # Man Lymphocytes # (Manual) Monocytes # (Manual) Eosinophils # (Manual) PT INR POC ABG pH POC ABG pCO2 POC ABG pO2 Sodium Potassium Chloride Carbon Dioxide BUN Creatinine Glucose POC Glucose 121 H 107 H Lactic Acid Calcium Phosphorus Magnesium AST ALT Alkaline Phosphatase Troponin T C-Reactive Protein Total Protein Albumin LDL Cholesterol Direct HDL Cholesterol Urine Creatinine Hepatitis C Antibody Crossmatch Crossmatch [facility] See Detail 12/17/17 12/17/17 12/17/17 05:08 05:08 12:03 WBC 12.9 H RBC 2.88 L Hgb 7.2 L Hct 22.6 L MCV 78 L MCH 25 L MCHC RDW 18.3 H Plt Count Lymph % (Auto) 8.0 L [place] % (Auto) 8.6 H Eos % (Auto) Lymph # 1.0 L [place] # 1.1 H Eos # Baso # Seg Neutrophils % 79.3 H Seg Neuts % (Manual) Lymphocytes % (Manual) Monocytes % (Manual) Eosinophils % (Manual) Nucleated RBC % Seg Neutrophils # 10.2 H Seg Neutrophils # Man Lymphocytes # (Manual) Monocytes # (Manual) Eosinophils # (Manual) PT INR POC ABG pH POC ABG pCO2 POC ABG pO2 Sodium Potassium 3.4 L D Chloride Carbon Dioxide BUN Creatinine Glucose 104 H POC Glucose 109 H Lactic Acid Calcium 7.6 L Phosphorus Magnesium 1.30 L AST ALT Alkaline Phosphatase 177 H Troponin T C-Reactive Protein Total Protein Albumin 2.0 L LDL Cholesterol Direct HDL Cholesterol Urine Creatinine Hepatitis C Antibody Crossmatch Crossmatch [facility] 12/17/17 12/18/17 12/18/17 23:40 00:50 00:50 WBC 22.6 H RBC 2.76 L Hgb 6.7 L Hct 21.6 L MCV 78 L MCH 24 L MCHC 31 L RDW 18.4 H Plt Count Lymph % (Auto) [place] % (Auto) Eos % (Auto) Lymph # [place] # Eos # Baso # Seg Neutrophils % Seg Neuts % (Manual) Lymphocytes % (Manual) Monocytes % (Manual) Eosinophils % (Manual) Nucleated RBC % Seg Neutrophils # Seg Neutrophils # Man Lymphocytes # (Manual) Monocytes # (Manual) Eosinophils # (Manual) PT INR POC ABG pH POC ABG pCO2 POC ABG pO2 Sodium Potassium Chloride Carbon Dioxide BUN 22 H Creatinine 1.6 H Glucose 113 H POC Glucose 120 H Lactic Acid Calcium 7.8 L Phosphorus Magnesium 1.50 L AST ALT Alkaline Phosphatase Troponin T C-Reactive Protein Total Protein Albumin LDL Cholesterol Direct HDL Cholesterol Urine Creatinine Hepatitis C Antibody Crossmatch Crossmatch [facility] 12/18/17 12/18/17 12/18/17 05:34 12:00 18:07 WBC RBC Hgb Hct MCV MCH MCHC RDW Plt Count Lymph % (Auto) [place] % (Auto) Eos % (Auto) Lymph # [place] # Eos # Baso # Seg Neutrophils % Seg Neuts % (Manual) Lymphocytes % (Manual) Monocytes % (Manual) Eosinophils % (Manual) Nucleated RBC % Seg Neutrophils # Seg Neutrophils # Man Lymphocytes # (Manual) Monocytes # (Manual) Eosinophils # (Manual) PT INR POC ABG pH POC ABG pCO2 POC ABG pO2 Sodium Potassium Chloride Carbon Dioxide BUN Creatinine Glucose POC Glucose 132 H 136 H 122 H Lactic Acid Calcium Phosphorus Magnesium AST ALT Alkaline Phosphatase Troponin T C-Reactive Protein Total Protein Albumin LDL Cholesterol Direct HDL Cholesterol Urine Creatinine Hepatitis C Antibody Crossmatch Crossmatch [facility] 12/19/17 12/19/17 12/19/17 00:24 00:24 05:17 WBC 15.4 H RBC 2.41 L Hgb 6.1 L Hct 19.0 L* MCV 79 L MCH 25 L MCHC RDW 18.5 H Plt Count Lymph % (Auto) [place] % (Auto) Eos % (Auto) Lymph # [place] # Eos # Baso # Seg Neutrophils % Seg Neuts % (Manual) Lymphocytes % (Manual) Monocytes % (Manual) Eosinophils % (Manual) Nucleated RBC % Seg Neutrophils # Seg Neutrophils # Man Lymphocytes # (Manual) Monocytes # (Manual) Eosinophils # (Manual) PT INR POC ABG pH POC ABG pCO2 POC ABG pO2 Sodium Potassium 3.2 L Chloride Carbon Dioxide BUN Creatinine Glucose 117 H POC Glucose 132 H Lactic Acid Calcium 8.2 L Phosphorus Magnesium 1.50 L AST ALT Alkaline Phosphatase Troponin T C-Reactive Protein Total Protein Albumin LDL Cholesterol Direct HDL Cholesterol Urine Creatinine Hepatitis C Antibody Crossmatch Crossmatch [facility] 12/19/17 12/19/17 12/19/17 09:00 09:00 18:01 WBC 12.4 H RBC 2.86 L Hgb 7.2 L Hct 22.6 L MCV 79 L MCH 25 L MCHC RDW 17.2 H Plt Count Lymph % (Auto) 6.8 L [place] % (Auto) 12.6 H Eos % (Auto) Lymph # 0.8 L [place] # 1.6 H Eos # Baso # Seg Neutrophils % 80.1 H Seg Neuts % (Manual) Lymphocytes % (Manual) Monocytes % (Manual) Eosinophils % (Manual) Nucleated RBC % Seg Neutrophils # 10.0 H Seg Neutrophils # Man Lymphocytes # (Manual) Monocytes # (Manual) Eosinophils # (Manual) PT INR POC ABG pH POC ABG pCO2 POC ABG pO2 Sodium Potassium 3.1 L Chloride Carbon Dioxide BUN 22 H Creatinine Glucose 113 H POC Glucose 117 H Lactic Acid Calcium 8.3 L Phosphorus Magnesium AST 54 H ALT Alkaline Phosphatase 204 H Troponin T C-Reactive Protein Total Protein 5.8 L Albumin 2.0 L LDL Cholesterol Direct HDL Cholesterol Urine Creatinine Hepatitis C Antibody Crossmatch Crossmatch [facility] 12/19/17 12/20/17 12/20/17 23:49 05:53 19:00 WBC RBC 3.03 L Hgb 7.7 L Hct 23.7 L MCV 78 L MCH 25 L MCHC RDW 17.2 H Plt Count Lymph % (Auto) [place] % (Auto) Eos % (Auto) Lymph # [place] # Eos # Baso # Seg Neutrophils % Seg Neuts % (Manual) 74.0 H Lymphocytes % (Manual) 6.0 L Monocytes % (Manual) 17.0 H Eosinophils % (Manual) Nucleated RBC % Seg Neutrophils # Seg Neutrophils # Man Lymphocytes # (Manual) 0.5 L Monocytes # (Manual) 1.5 H Eosinophils # (Manual) PT INR POC ABG pH POC ABG pCO2 POC ABG pO2 Sodium Potassium Chloride Carbon Dioxide BUN Creatinine Glucose POC Glucose 125 H 124 H Lactic Acid Calcium Phosphorus Magnesium AST ALT Alkaline Phosphatase Troponin T C-Reactive Protein Total Protein Albumin LDL Cholesterol Direct HDL Cholesterol Urine Creatinine Hepatitis C Antibody Crossmatch Crossmatch [facility] 12/20/17 12/21/17 12/22/17 19:00 23:54 05:07 WBC RBC Hgb Hct MCV MCH MCHC RDW Plt Count Lymph % (Auto) [place] % (Auto) Eos % (Auto) Lymph # [place] # Eos # Baso # Seg Neutrophils % Seg Neuts % (Manual) Lymphocytes % (Manual) Monocytes % (Manual) Eosinophils % (Manual) Nucleated RBC % Seg Neutrophils # Seg Neutrophils # Man Lymphocytes # (Manual) Monocytes # (Manual) Eosinophils # (Manual) PT INR POC ABG pH POC ABG pCO2 POC ABG pO2 Sodium Potassium 3.3 L 2.9 L* Chloride Carbon Dioxide BUN 37 H 43 H Creatinine Glucose 114 H POC Glucose 109 H Lactic Acid Calcium 8.3 L 7.8 L Phosphorus 1.60 L Magnesium 1.50 L AST ALT Alkaline Phosphatase Troponin T C-Reactive Protein Total Protein Albumin LDL Cholesterol Direct HDL Cholesterol Urine Creatinine Hepatitis C Antibody Crossmatch Crossmatch [facility] 12/22/17 12/22/17 12/22/17 05:07 05:07 06:02 WBC 4.1 L RBC 3.09 L Hgb 7.7 L Hct 24.3 L MCV 79 L MCH 25 L MCHC RDW 17.8 H Plt Count Lymph % (Auto) [place] % (Auto) Eos % (Auto) Lymph # [place] # Eos # Baso # Seg Neutrophils % Seg Neuts % (Manual) Lymphocytes % (Manual) Monocytes % (Manual) Eosinophils % (Manual) Nucleated RBC % Seg Neutrophils # Seg Neutrophils # Man Lymphocytes # (Manual) Monocytes # (Manual) Eosinophils # (Manual) PT INR POC ABG pH POC ABG pCO2 POC ABG pO2 Sodium Potassium Chloride Carbon Dioxide BUN Creatinine Glucose POC Glucose 107 H Lactic Acid Calcium Phosphorus Magnesium 1.60 L AST ALT Alkaline Phosphatase Troponin T C-Reactive Protein Total Protein Albumin LDL Cholesterol Direct HDL Cholesterol Urine Creatinine Hepatitis C Antibody Crossmatch Crossmatch [facility] 12/22/17 12/22/17 12/22/17 10:50 12:02 17:32 WBC RBC Hgb Hct MCV MCH MCHC RDW Plt Count Lymph % (Auto) [place] % (Auto) Eos % (Auto) Lymph # [place] # Eos # Baso # Seg Neutrophils % Seg Neuts % (Manual) Lymphocytes % (Manual) Monocytes % (Manual) Eosinophils % (Manual) Nucleated RBC % Seg Neutrophils # Seg Neutrophils # Man Lymphocytes # (Manual) Monocytes # (Manual) Eosinophils # (Manual) PT INR POC ABG pH POC ABG pCO2 POC ABG pO2 Sodium Potassium Chloride Carbon Dioxide BUN Creatinine Glucose POC Glucose 129 H 111 H Lactic Acid Calcium Phosphorus Magnesium AST ALT Alkaline Phosphatase Troponin T C-Reactive Protein Total Protein Albumin LDL Cholesterol Direct HDL Cholesterol Urine Creatinine 55.8 H Hepatitis C Antibody Crossmatch Crossmatch [facility] 12/22/17 12/22/17 12/23/17 19:03 23:57 05:55 WBC RBC Hgb Hct MCV MCH MCHC RDW Plt Count Lymph % (Auto) [place] % (Auto) Eos % (Auto) Lymph # [place] # Eos # Baso # Seg Neutrophils % Seg Neuts % (Manual) Lymphocytes % (Manual) Monocytes % (Manual) Eosinophils % (Manual) Nucleated RBC % Seg Neutrophils # Seg Neutrophils # Man Lymphocytes # (Manual) Monocytes # (Manual) Eosinophils # (Manual) PT INR POC ABG pH POC ABG pCO2 POC ABG pO2 Sodium Potassium 3.4 L 2.9 L* Chloride Carbon Dioxide BUN 40 H Creatinine Glucose 107 H POC Glucose 128 H Lactic Acid Calcium 7.9 L Phosphorus Magnesium AST ALT Alkaline Phosphatase Troponin T C-Reactive Protein Total Protein Albumin LDL Cholesterol Direct HDL Cholesterol Urine Creatinine Hepatitis C Antibody Crossmatch Crossmatch [facility] 12/23/17 12/23/17 12/23/17 05:55 05:55 11:59 WBC 3.8 L RBC 3.10 L Hgb 7.7 L Hct 25.5 L MCV 82 L MCH 25 L MCHC 30 L RDW 17.9 H Plt Count Lymph % (Auto) [place] % (Auto) Eos % (Auto) Lymph # [place] # Eos # Baso # Seg Neutrophils % Seg Neuts % (Manual) Lymphocytes % (Manual) Monocytes % (Manual) Eosinophils % (Manual) Nucleated RBC % Seg Neutrophils # Seg Neutrophils # Man Lymphocytes # (Manual) Monocytes # (Manual) Eosinophils # (Manual) PT INR POC ABG pH POC ABG pCO2 POC ABG pO2 Sodium Potassium Chloride Carbon Dioxide BUN Creatinine Glucose POC Glucose 115 H Lactic Acid Calcium Phosphorus Magnesium 1.60 L AST ALT Alkaline Phosphatase Troponin T C-Reactive Protein Total Protein Albumin LDL Cholesterol Direct HDL Cholesterol Urine Creatinine Hepatitis C Antibody Crossmatch Crossmatch [facility] 12/23/17 12/24/17 12/24/17 22:48 00:29 03:17 WBC RBC Hgb Hct MCV MCH MCHC RDW Plt Count Lymph % (Auto) [place] % (Auto) Eos % (Auto) Lymph # [place] # Eos # Baso # Seg Neutrophils % Seg Neuts % (Manual) Lymphocytes % (Manual) Monocytes % (Manual) Eosinophils % (Manual) Nucleated RBC % Seg Neutrophils # Seg Neutrophils # Man Lymphocytes # (Manual) Monocytes # (Manual) Eosinophils # (Manual) PT INR POC ABG pH POC ABG pCO2 POC ABG pO2 Sodium 146 H Potassium 2.9 L* 3.4 L Chloride Carbon Dioxide BUN 36 H Creatinine 0.7 L Glucose POC Glucose 111 H Lactic Acid Calcium 7.5 L Phosphorus Magnesium 1.60 L AST 76 H ALT 59 H Alkaline Phosphatase 294 H Troponin T C-Reactive Protein Total Protein 5.8 L Albumin 2.2 L LDL Cholesterol Direct HDL Cholesterol Urine Creatinine Hepatitis C Antibody Crossmatch Crossmatch [facility] 12/24/17 12/24/17 12/24/17 03:17 05:14 17:05 WBC RBC 3.03 L Hgb 7.6 L Hct 23.7 L MCV 78 L MCH 25 L MCHC RDW 17.8 H Plt Count Lymph % (Auto) [place] % (Auto) Eos % (Auto) Lymph # [place] # Eos # Baso # Seg Neutrophils % Seg Neuts % (Manual) Lymphocytes % (Manual) Monocytes % (Manual) Eosinophils % (Manual) Nucleated RBC % Seg Neutrophils # Seg Neutrophils # Man Lymphocytes # (Manual) Monocytes # (Manual) Eosinophils # (Manual) PT INR POC ABG pH POC ABG pCO2 POC ABG pO2 Sodium Potassium Chloride Carbon Dioxide BUN Creatinine Glucose POC Glucose 127 H 132 H Lactic Acid Calcium Phosphorus Magnesium AST ALT Alkaline Phosphatase Troponin T C-Reactive Protein Total Protein Albumin LDL Cholesterol Direct HDL Cholesterol Urine Creatinine Hepatitis C Antibody Crossmatch Crossmatch [facility] 12/25/17 12/25/17 12/25/17 00:03 04:34 06:25 WBC RBC Hgb Hct MCV MCH MCHC RDW Plt Count Lymph % (Auto) [place] % (Auto) Eos % (Auto) Lymph # [place] # Eos # Baso # Seg Neutrophils % Seg Neuts % (Manual) Lymphocytes % (Manual) Monocytes % (Manual) Eosinophils % (Manual) Nucleated RBC % Seg Neutrophils # Seg Neutrophils # Man Lymphocytes # (Manual) Monocytes # (Manual) Eosinophils # (Manual) PT INR POC ABG pH POC ABG pCO2 POC ABG pO2 Sodium Potassium Chloride Carbon Dioxide BUN 30 H Creatinine 0.6 L Glucose 114 H POC Glucose 128 H 136 H Lactic Acid Calcium 7.5 L Phosphorus Magnesium AST 84 H ALT 82 H Alkaline Phosphatase 322 H Troponin T C-Reactive Protein Total Protein 6.0 L Albumin 2.3 L LDL Cholesterol Direct HDL Cholesterol Urine Creatinine Hepatitis C Antibody Crossmatch Crossmatch [facility] 12/25/17 12/25/17 12/26/17 12:02 18:28 00:03 WBC RBC Hgb Hct MCV MCH MCHC RDW Plt Count Lymph % (Auto) [place] % (Auto) Eos % (Auto) Lymph # [place] # Eos # Baso # Seg Neutrophils % Seg Neuts % (Manual) Lymphocytes % (Manual) Monocytes % (Manual) Eosinophils % (Manual) Nucleated RBC % Seg Neutrophils # Seg Neutrophils # Man Lymphocytes # (Manual) Monocytes # (Manual) Eosinophils # (Manual) PT INR POC ABG pH POC ABG pCO2 POC ABG pO2 Sodium Potassium Chloride Carbon Dioxide BUN Creatinine Glucose POC Glucose 158 H 113 H 117 H Lactic Acid Calcium Phosphorus Magnesium AST ALT Alkaline Phosphatase Troponin T C-Reactive Protein Total Protein Albumin LDL Cholesterol Direct HDL Cholesterol Urine Creatinine Hepatitis C Antibody Crossmatch Crossmatch [facility] 12/26/17 12/26/17 12/26/17 04:26 06:35 08:47 WBC RBC Hgb Hct MCV MCH MCHC RDW Plt Count Lymph % (Auto) [place] % (Auto) Eos % (Auto) Lymph # [place] # Eos # Baso # Seg Neutrophils % Seg Neuts % (Manual) Lymphocytes % (Manual) Monocytes % (Manual) Eosinophils % (Manual) Nucleated RBC % Seg Neutrophils # Seg Neutrophils # Man Lymphocytes # (Manual) Monocytes # (Manual) Eosinophils # (Manual) PT INR POC ABG pH POC ABG pCO2 POC ABG pO2 Sodium Potassium 5.4 H D 3.3 L D Chloride Carbon Dioxide 21 L BUN 39 H Creatinine 0.7 L Glucose 121 H POC Glucose 122 H Lactic Acid Calcium 7.8 L Phosphorus Magnesium AST 144 H ALT 98 H Alkaline Phosphatase 330 H Troponin T C-Reactive Protein Total Protein 6.1 L Albumin 2.1 L LDL Cholesterol Direct HDL Cholesterol Urine Creatinine Hepatitis C Antibody Crossmatch Crossmatch [facility] 12/26/17 12/26/17 12/27/17 12:29 18:27 07:34 WBC RBC Hgb Hct MCV MCH MCHC RDW Plt Count Lymph % (Auto) [place] % (Auto) Eos % (Auto) Lymph # [place] # Eos # Baso # Seg Neutrophils % Seg Neuts % (Manual) Lymphocytes % (Manual) Monocytes % (Manual) Eosinophils % (Manual) Nucleated RBC % Seg Neutrophils # Seg Neutrophils # Man Lymphocytes # (Manual) Monocytes # (Manual) Eosinophils # (Manual) PT INR POC ABG pH POC ABG pCO2 POC ABG pO2 Sodium Potassium 3.1 L Chloride Carbon Dioxide BUN Creatinine 0.5 L Glucose POC Glucose 128 H 121 H Lactic Acid Calcium 7.7 L Phosphorus Magnesium AST 74 H ALT 80 H Alkaline Phosphatase 306 H Troponin T C-Reactive Protein Total Protein 6.1 L Albumin 2.1 L LDL Cholesterol Direct HDL Cholesterol Urine Creatinine Hepatitis C Antibody Crossmatch Crossmatch [facility] 12/27/17 12/28/17 12/28/17 07:34 04:59 04:59 WBC 11.1 H RBC 3.00 L Hgb 7.2 L Hct 23.6 L MCV 79 L MCH 24 L MCHC 31 L RDW 18.3 H Plt Count Lymph % (Auto) 10.0 L [place] % (Auto) 10.2 H Eos % (Auto) 6.7 H Lymph # 1.1 L [place] # 1.1 H Eos # 0.7 H Baso # Seg Neutrophils % 72.1 H Seg Neuts % (Manual) Lymphocytes % (Manual) Monocytes % (Manual) Eosinophils % (Manual) Nucleated RBC % Seg Neutrophils # 8.0 H Seg Neutrophils # Man Lymphocytes # (Manual) Monocytes # (Manual) Eosinophils # (Manual) PT INR POC ABG pH POC ABG pCO2 POC ABG pO2 Sodium Potassium Chloride Carbon Dioxide BUN Creatinine 0.4 L Glucose 102 H POC Glucose Lactic Acid Calcium 7.8 L Phosphorus Magnesium 1.30 L AST 58 H ALT 62 H Alkaline Phosphatase 274 H Troponin T C-Reactive Protein Total Protein 6.0 L Albumin 2.0 L LDL Cholesterol Direct HDL Cholesterol Urine Creatinine Hepatitis C Antibody Crossmatch Crossmatch [facility] 12/28/17 12/29/17 12/29/17 18:06 04:02 04:02 WBC RBC Hgb Hct MCV MCH MCHC RDW Plt Count Lymph % (Auto) [place] % (Auto) Eos % (Auto) Lymph # [place] # Eos # Baso # Seg Neutrophils % Seg Neuts % (Manual) Lymphocytes % (Manual) Monocytes % (Manual) Eosinophils % (Manual) Nucleated RBC % Seg Neutrophils # Seg Neutrophils # Man Lymphocytes # (Manual) Monocytes # (Manual) Eosinophils # (Manual) PT INR POC ABG pH POC ABG pCO2 POC ABG pO2 Sodium Potassium Chloride Carbon Dioxide BUN Creatinine 0.5 L Glucose POC Glucose 107 H Lactic Acid Calcium 7.8 L Phosphorus Magnesium 1.40 L AST 50 H ALT Alkaline Phosphatase 311 H Troponin T C-Reactive Protein Total Protein 5.9 L Albumin 2.3 L LDL Cholesterol Direct HDL Cholesterol Urine Creatinine Hepatitis C Antibody Crossmatch Crossmatch [facility] 12/29/17 12/29/17 12/30/17 12:10 17:33 04:46 WBC RBC Hgb Hct MCV MCH MCHC RDW Plt Count Lymph % (Auto) [place] % (Auto) Eos % (Auto) Lymph # [place] # Eos # Baso # Seg Neutrophils % Seg Neuts % (Manual) Lymphocytes % (Manual) Monocytes % (Manual) Eosinophils % (Manual) Nucleated RBC % Seg Neutrophils # Seg Neutrophils # Man Lymphocytes # (Manual) Monocytes # (Manual) Eosinophils # (Manual) PT INR POC ABG pH POC ABG pCO2 POC ABG pO2 Sodium Potassium Chloride Carbon Dioxide BUN Creatinine 0.5 L Glucose POC Glucose 124 H 108 H Lactic Acid Calcium 8.2 L Phosphorus Magnesium AST ALT Alkaline Phosphatase 288 H Troponin T C-Reactive Protein Total Protein Albumin 2.4 L LDL Cholesterol Direct HDL Cholesterol Urine Creatinine Hepatitis C Antibody Crossmatch Crossmatch [facility] 12/30/17 12/31/17 12/31/17 04:46 04:03 04:03 WBC RBC Hgb Hct MCV MCH MCHC RDW Plt Count Lymph % (Auto) [place] % (Auto) Eos % (Auto) Lymph # [place] # Eos # Baso # Seg Neutrophils % Seg Neuts % (Manual) Lymphocytes % (Manual) Monocytes % (Manual) Eosinophils % (Manual) Nucleated RBC % Seg Neutrophils # Seg Neutrophils # Man Lymphocytes # (Manual) Monocytes # (Manual) Eosinophils # (Manual) PT INR POC ABG pH POC ABG pCO2 POC ABG pO2 Sodium Potassium Chloride Carbon Dioxide BUN Creatinine 0.4 L Glucose 103 H POC Glucose Lactic Acid Calcium 8.1 L Phosphorus Magnesium 1.50 L 1.30 L AST ALT Alkaline Phosphatase Troponin T C-Reactive Protein Total Protein Albumin LDL Cholesterol Direct HDL Cholesterol Urine Creatinine Hepatitis C Antibody Crossmatch Crossmatch [facility] 12/31/17 12/31/17 01/01/18 16:56 23:55 04:26 WBC RBC Hgb Hct MCV MCH MCHC RDW Plt Count Lymph % (Auto) [place] % (Auto) Eos % (Auto) Lymph # [place] # Eos # Baso # Seg Neutrophils % Seg Neuts % (Manual) Lymphocytes % (Manual) Monocytes % (Manual) Eosinophils % (Manual) Nucleated RBC % Seg Neutrophils # Seg Neutrophils # Man Lymphocytes # (Manual) Monocytes # (Manual) Eosinophils # (Manual) PT INR POC ABG pH POC ABG pCO2 POC ABG pO2 Sodium Potassium 3.5 L Chloride Carbon Dioxide BUN Creatinine 0.3 L Glucose 105 H POC Glucose 106 H 108 H Lactic Acid Calcium 7.9 L Phosphorus Magnesium AST ALT Alkaline Phosphatase Troponin T C-Reactive Protein Total Protein Albumin LDL Cholesterol Direct HDL Cholesterol Urine Creatinine Hepatitis C Antibody Crossmatch Crossmatch [facility] 01/01/18 01/01/18 01/02/18 04:26 05:26 03:45 WBC RBC 3.07 L Hgb 7.6 L Hct 24.1 L MCV 78 L MCH 25 L MCHC 31 L RDW 18.2 H Plt Count Lymph % (Auto) [place] % (Auto) Eos % (Auto) Lymph # [place] # Eos # Baso # Seg Neutrophils % Seg Neuts % (Manual) 72.0 H Lymphocytes % (Manual) 13.0 L Monocytes % (Manual) Eosinophils % (Manual) 7.0 H Nucleated RBC % 1.0 H Seg Neutrophils # Seg Neutrophils # Man Lymphocytes # (Manual) Monocytes # (Manual) Eosinophils # (Manual) 0.7 H PT INR POC ABG pH POC ABG pCO2 POC ABG pO2 Sodium 134 L Potassium Chloride Carbon Dioxide BUN Creatinine 0.4 L Glucose POC Glucose 107 H Lactic Acid Calcium 8.1 L Phosphorus Magnesium AST ALT Alkaline Phosphatase Troponin T C-Reactive Protein Total Protein Albumin LDL Cholesterol Direct HDL Cholesterol Urine Creatinine Hepatitis C Antibody Crossmatch Crossmatch [place] 01/02/18 01/03/18 01/04/18 03:45 12:15 00:25 WBC 13.1 H RBC 3.17 L Hgb 7.5 L Hct 24.8 L MCV 78 L MCH 24 L MCHC 31 L RDW 18.2 H Plt Count Lymph % (Auto) 11.0 L [place] % (Auto) 8.8 H Eos % (Auto) Lymph # [place] # 1.2 H Eos # 0.5 H Baso # 0.2 H Seg Neutrophils % 74.7 H Seg Neuts % (Manual) Lymphocytes % (Manual) Monocytes % (Manual) Eosinophils % (Manual) Nucleated RBC % Seg Neutrophils # 9.8 H Seg Neutrophils # Man Lymphocytes # (Manual) Monocytes # (Manual) Eosinophils # (Manual) PT INR POC ABG pH POC ABG pCO2 POC ABG pO2 Sodium Potassium Chloride Carbon Dioxide BUN Creatinine Glucose POC Glucose 137 H < 40 L Lactic Acid Calcium Phosphorus Magnesium AST ALT Alkaline Phosphatase Troponin T C-Reactive Protein Total Protein Albumin LDL Cholesterol Direct HDL Cholesterol Urine Creatinine Hepatitis C Antibody Crossmatch Crossmatch [place] 01/04/18 01/04/18 04:31 12:52 WBC 11.1 H RBC 3.18 L Hgb 7.7 L Hct 24.8 L MCV 78 L MCH 24 L MCHC 31 L RDW 18.4 H Plt Count Lymph % (Auto) [place] % (Auto) Eos % (Auto) Lymph # [place] # Eos # Baso # Seg Neutrophils % Seg Neuts % (Manual) Lymphocytes % (Manual) Monocytes % (Manual) Eosinophils % (Manual) Nucleated RBC % Seg Neutrophils # Seg Neutrophils # Man Lymphocytes # (Manual) Monocytes # (Manual) Eosinophils # (Manual) PT INR POC ABG pH POC ABG pCO2 POC ABG pO2 Sodium Potassium Chloride Carbon Dioxide 19 L BUN Creatinine 0.3 L Glucose 47 L POC Glucose Lactic Acid Calcium 8.0 L Phosphorus Magnesium AST ALT Alkaline Phosphatase Troponin T C-Reactive Protein Total Protein Albumin LDL Cholesterol Direct HDL Cholesterol Urine Creatinine Hepatitis C Antibody Crossmatch Crossmatch [place]
[2018-01-05] MEDS: PREVACID SOLUTAB FEEDTUBE SCH ×2 (10:14→21:43)
[2018-01-05] MEDS: LOPRESSOR PO SCH ×2 (10:14→21:44)
[2018-01-05] MEDS: MAG-OX PO SCH ×2 (10:15→21:43)
[2018-01-05] MEDS: POTASSIUM CHLORIDE FEEDTUBE SCH ×2 (10:16→21:44)
--- NOTE | 2018-01-05 18:55 | Progress Note ---
Assessment and Plan Assessment and plan: Mr. 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 He had a Carotid doppler done that revealed a right ICA 50-79% stenosis. CTA of the neck revealed 80% stenosis of the right ICA with probable 50% stenosis of the origin of the right common carotid artery. His symptoms were thought to be due to the Carotid artery stenosis which was disheartening since he was on Aspirin and plavix. He was scheduled for right CEA but needed Cardiac clearance. He underwent stress test on 10/05/17 and De Ionizer Operator stated he was stable for non-cardiac history, low to moderate perioperative risk. So, he underwent right carotid enarterectomy on 10/09/17. Following the surgery, he developed recurrent left sided weakness/hemiparesis and was taken back to the OR on 10/10/17 for Open Thrombectomy of Right Internal Carotid Artery and Injection of tPA into the Artery. CT head obtained 2 days after surgery on 10/12 showed massive right cerebral hemisphere acute CVA with midline shift. He was subsequently discharged on 11/10/17 to [facility] but returned to [facility] ED and was re-admitted on 11/12/17 for suspected sepsis due to Aspiration post-obstructive pneumonia with suspected mucus plug and subsequently intubated on admission. On 11/20/17, patient went for Tracheostomy by Dr. Hughes, ENT. Then on 11/21/17 patient went into shock, most likely sepsis as WBC went up to 38.2k; initially thought to be due worsening aspiration pneumonia but it was discovered that he had a dislodged PEG tube from the Nursing, most likely present on admission, which lead to the shock from severe intra-abdominal infection/ peritonitis requiring IR drainage and General surgery drainage. Assessment and plan --Peritonitis: from dislodged peg tube s/pcomplete course of antibiotics, Multiple surgical procedures with intra- abdominal drainage placement IR and surgery evaluated the patient, Continue current management, awaiting for wound healing Possible new peg placement when output of the drains, improved and clears, discussed his surgeon today --Acute hypoxic respiratory failure; requiring mechanical ventilation more than 96% Status post tracheostomy, continue trach care, nebulizers, oxygen --Aspiration pneumonia; received complete treatment, resolved --Acute kidney injury; secondary to ATN Requiring intermittent dialysis as needed --Chronic anemia; received total 3 units of PRBC, closely monitor H&H transfuse as needed --Hypernatremia/hypokalemia/hypomagnesemia; Closely monitor electrolytes and adjust as needed --History of carotid endarterectomy; supportive care --Metabolic encephalopathy; supportive care --Severe malnutrition; nutrition supplements and feeding --DVT prophylaxis; SCDs --Full CODE STATUS Patient is critically ill, recommend hospice Consults and recommendations noted DC planning per case management LTAC declined admission KILEY is daughter, Eugenie [phone], History Interval history: Patient seen and examined this morning medical records reviewed Clinically no change, no new events reported Patient continues to have a collection in the drainage tubes Vital signs noted Hospitalist Physical - Constitutional Vitals: Temp Pulse Resp BP Pulse Ox 98.2 F 102 H 27 H 143/82 100 01/05/18 16:00 01/05/18 15:00 01/05/18 15:00 01/05/18 15:00 01/05/18 15:00 General appearance: Present: no acute distress, cachectic, disheveled, other ( tracheostomy on T piece) - EENT Eyes: Present: PERRL, EOM intact - Neck Neck: Present: supple, other (tracheostomy on T piece) - Respiratory Respiratory effort: normal Respiratory: bilateral: diminished, rhonchi, negative: wheezing - Cardiovascular Rhythm: regular Heart Sounds: Present: S1 & S2 - Extremities Extremities: no ischemia Extremity abnormal: edema - Abdominal General gastrointestinal: soft, non-tender, non-distended, other (drainage tube in place with collection of fluid) - Integumentary Integumentary: Present: clear, warm - Psychiatric Psychiatric: other (unresponsive) - Neurologic Neurologic: other (noncommunicative) Results - Labs CBC & Chem 7: 01/04/18 12:52 01/04/18 04:31 Labs: Laboratory Last Values WBC 11.1 K/mm3 (4.5-11.0) H 01/04/18 12:52 RBC 3.18 M/mm3 (3.65-5.03) L 01/04/18 12:52 Hgb 7.7 gm/dl (11.8-15.2) L 01/04/18 12:52 Hct 24.8 % (35.5-45.6) L 01/04/18 12:52 MCV 78 fl (84-94) L 01/04/18 12:52 MCH 24 pg (28-32) L 01/04/18 12:52 MCHC 31 % (32-34) L 01/04/18 12:52 RDW 18.4 % (13.2-15.2) H 01/04/18 12:52 Plt Count 203 K/mm3 (140-440) 01/04/18 12:52 Lymph % (Auto) Supervisor Cd Area 01/04/18 12:52 [place] % (Auto) Supervisor Cd Area 01/04/18 12:52 Eos % (Auto) Supervisor Cd Area 01/04/18 12:52 Baso % (Auto) Supervisor Cd Area 01/04/18 12:52 Lymph # Supervisor Cd Area 01/04/18 12:52 [place] # Supervisor Cd Area 01/04/18 12:52 Eos # Supervisor Cd Area 01/04/18 12:52 Baso # Supervisor Cd Area 01/04/18 12:52 Add Manual Diff Complete 01/01/18 04:26 Total Counted 100 01/01/18 04:26 Seg Neutrophils % Supervisor Cd Area 01/04/18 12:52 Seg Neuts % (Manual) 72.0 % (40.0-70.0) H 01/01/18 04:26 Band Neutrophils % 0 % 01/01/18 04:26 Lymphocytes % (Manual) 13.0 % (13.4-35.0) L 01/01/18 04:26 Reactive Lymphs % (Man) 0 % 01/01/18 04:26 Monocytes % (Manual) 7.0 % (0.0-7.3) 01/01/18 04:26 Eosinophils % (Manual) 7.0 % (0.0-4.3) H 01/01/18 04:26 Basophils % (Manual) 1.0 % (0.0-1.8) 01/01/18 04:26 Metamyelocytes % 0 % 01/01/18 04:26 Myelocytes % 0 % 01/01/18 04:26 Promyelocytes % 0 % 01/01/18 04:26 Blast Cells % 0 % 01/01/18 04:26 Nucleated RBC % 1.0 % (0.0-0.9) H 01/01/18 04:26 Seg Neutrophils # Supervisor Cd Area 01/04/18 12:52 Seg Neutrophils # Man 7.5 K/mm3 (1.8-7.7) 01/01/18 04:26 Band Neutrophils # 0.0 K/mm3 01/01/18 04:26 Lymphocytes # (Manual) 1.4 K/mm3 (1.2-5.4) 01/01/18 04:26 Abs React Lymphs (Man) 0.0 K/mm3 01/01/18 04:26 Monocytes # (Manual) 0.7 K/mm3 (0.0-0.8) 01/01/18 04:26 Eosinophils # (Manual) 0.7 K/mm3 (0.0-0.4) H 01/01/18 04:26 Basophils # (Manual) 0.1 K/mm3 (0.0-0.1) 01/01/18 04:26 Metamyelocytes # 0.0 K/mm3 01/01/18 04:26 Myelocytes # 0.0 K/mm3 01/01/18 04:26 Promyelocytes # 0.0 K/mm3 01/01/18 04:26 Blast Cells # 0.0 K/mm3 01/01/18 04:26 WBC Morphology Not Reportable 01/01/18 04:26 Hypersegmented Neuts Not Reportable 01/01/18 04:26 Hyposegmented Neuts Not Reportable 01/01/18 04:26 Hypogranular Neuts Not Reportable 01/01/18 04:26 Smudge Cells Not Reportable 01/01/18 04:26 Toxic Granulation Not Reportable 01/01/18 04:26 Toxic Vacuolation Not Reportable 01/01/18 04:26 Dohle Bodies Not Reportable 01/01/18 04:26 Pelger-Huet Anomaly Not Reportable 01/01/18 04:26 Evangelina Rods Not Reportable 01/01/18 04:26 Platelet Estimate Consistent w auto 01/01/18 04:26 Clumped Platelets Not Reportable 01/01/18 04:26 Plt Clumps, EDTA Not Reportable 01/01/18 04:26 Large Platelets Not Reportable 01/01/18 04:26 Giant Platelets Not Reportable 01/01/18 04:26 Platelet Satelliting Not Reportable 01/01/18 04:26 Plt Morphology Comment Not Reportable 01/01/18 04:26 RBC Morphology Not Reportable 01/01/18 04:26 Dimorphic RBCs Not Reportable 01/01/18 04:26 Polychromasia Not Reportable 01/01/18 04:26 Hypochromasia Not Reportable 01/01/18 04:26 Poikilocytosis Not Reportable 01/01/18 04:26 Anisocytosis 1+ 01/01/18 04:26 Microcytosis Not Reportable 01/01/18 04:26 Macrocytosis Not Reportable 01/01/18 04:26 Spherocytes Not Reportable 01/01/18 04:26 Pappenheimer Bodies Not Reportable 01/01/18 04:26 Sickle Cells Not Reportable 01/01/18 04:26 Target Cells Not Reportable 01/01/18 04:26 Tear Drop Cells Not Reportable 01/01/18 04:26 Ovalocytes Not Reportable 01/01/18 04:26 Stomatocytes Few 01/01/18 04:26 Helmet Cells Not Reportable 01/01/18 04:26 Dukes-[place] Bodies Not Reportable 01/01/18 04:26 [place] Rings Not Reportable 01/01/18 04:26 [place] Cells Not Reportable 01/01/18 04:26 Bite Cells Not Reportable 01/01/18 04:26 Crenated Cell Not Reportable 01/01/18 04:26 Elliptocytes Not Reportable 01/01/18 04:26 Acanthocytes (Spur) Not Reportable 01/01/18 04:26 Rouleaux Not Reportable 01/01/18 04:26 Hemoglobin C Crystals Not Reportable 01/01/18 04:26 Schistocytes Not Reportable 01/01/18 04:26 Malaria parasites Not Reportable 01/01/18 04:26 [place] Bodies Not Reportable 01/01/18 04:26 Hem Pathologist Commnt No 01/01/18 04:26 PT 15.4 Sec. (12.2-14.9) H 12/14/17 05:11 INR 1.17 (0.87-1.13) H 12/14/17 05:11 APTT 33.8 Sec. (24.2-36.6) 11/26/17 06:29 POC ABG pH 7.505 (7.35-7.45) H 11/23/17 04:56 POC ABG pCO2 26.3 (35-45) L 11/23/17 04:56 POC ABG pO2 100 (80-105) 11/23/17 04:56 POC ABG HCO3 20.8 11/23/17 04:56 POC ABG Total CO2 22 11/23/17 04:56 POC ABG O2 Sat 98 11/23/17 04:56 POC ABG Base Excess -2 11/23/17 04:56 FiO2 30 % 11/23/17 04:56 Sodium 139 mmol/L (137-145) 01/04/18 04:31 Potassium 4.3 mmol/L (3.6-5.0) 01/04/18 04:31 Chloride 101.5 mmol/L (98-107) 01/04/18 04:31 Carbon Dioxide 19 mmol/L (22-30) L 01/04/18 04:31 Anion Gap 23 mmol/L 01/04/18 04:31 BUN 11 mg/dL (9-20) 01/04/18 04:31 Creatinine 0.3 mg/dL (0.8-1.5) L 01/04/18 04:31 Estimated GFR > 60 ml/min 01/04/18 04:31 BUN/Creatinine Ratio 37 % 01/04/18 04:31 Glucose 47 mg/dL (75-100) L 01/04/18 04:31 POC Glucose 104 (70-105) 01/05/18 11:40 Lactic Acid 1.80 mmol/L (0.7-2.0) 11/27/17 04:06 Calcium 8.0 mg/dL (8.4-10.2) L 01/04/18 04:31 Phosphorus 3.40 mg/dL (2.5-4.5) 01/02/18 03:45 Magnesium 1.70 mg/dL (1.7-2.3) 01/02/18 03:45 Total Bilirubin 0.30 mg/dL (0.1-1.2) 12/30/17 04:46 AST 37 units/L (5-40) 12/30/17 04:46 ALT 48 units/L (7-56) 12/30/17 04:46 Alkaline Phosphatase 288 units/L (35-129) H 12/30/17 04:46 Total Creatine Kinase 84 units/L (55-170) 11/12/17 20:03 CK-MB (CK-2) < 1.0 ng/mL (0.0-4.0) 11/12/17 20:03 CK-MB (CK-2) Rel Index 1.1 (0-4) 11/12/17 20:03 Troponin T 0.098 ng/mL (0.00-0.029) H 11/12/17 Unknown C-Reactive Protein 25.70 mg/dL (0.00-1.30) H 11/11/17 23:20 NT-Pro-B Natriuret Pep 792.4 pg/mL (0-900) 11/11/17 23:20 Total Protein 6.6 g/dL (6.3-8.2) 12/30/17 04:46 Albumin 2.4 g/dL (3.9-5) L 12/30/17 04:46 Albumin/Globulin Ratio 0.6 % 12/30/17 04:46 Triglycerides 86 mg/dL (2-149) 11/11/17 23:20 Cholesterol 82 mg/dL (50-199) 11/11/17 23:20 LDL Cholesterol Direct 42 mg/dL (50-130) L 11/11/17 23:20 HDL Cholesterol 24 mg/dL (40-59) L 11/11/17 23:20 Cholesterol/HDL Ratio 3.41 % 11/11/17 23:20 Lipase 30 units/L (13-60) 11/11/17 23:20 Urine Color Nicole (Yellow) 11/11/17 23:09 Urine Turbidity Cloudy (Clear) 11/11/17 23:09 Urine pH 5.0 (5.0-7.0) 11/11/17 23:09 Ur Specific [place] 1.025 (1.003-1.030) 11/11/17 23:09 Urine Protein 100 mg/dl mg/dL (Negative) 11/11/17 23:09 Urine Glucose (UA) 50 mg/dL (Negative) 11/11/17 23:09 Urine Ketones Neg mg/dL (Negative) 11/11/17 23:09 Urine Blood Neg (Negative) 11/11/17 23:09 Urine Nitrite Neg (Negative) 11/11/17 23:09 Urine Bilirubin Neg (Negative) 11/11/17 23:09 Urine Urobilinogen 4.0 mg/dL (<2.0) 11/11/17 23:09 Ur Leukocyte Esterase Neg (Negative) 11/11/17 23:09 Urine WBC (Auto) 5.0 /HPF (0.0-6.0) 11/11/17 23:09 Urine RBC (Auto) 4.0 /HPF (0.0-6.0) 11/11/17 23:09 Urine Bacteria (Auto) 3+ /HPF (Negative) 11/11/17 23:09 Amorphous Crystals 3+ 11/11/17 23:09 Hyaline Casts 76 /LPF 11/11/17 23:09 Urine Mucus 2+ /HPF 11/11/17 23:09 Urine Total Volume 1350 12/22/17 10:50 Urine Creatinine 55.8 mg/dL (0.1-20.0) H 12/22/17 10:50 Ur Creatinine 24 Hour 0.8 (0.8-2.8) 12/22/17 10:50 Hepatitis A IgM Ab Non-reactive (NonReactive) 11/22/17 19:45 Hep Bs Antigen Non-reactive (Negative) 11/22/17 19:45 Hep B Core IgM Ab Non-reactive (NonReactive) 11/22/17 19:45 Hepatitis C Antibody Reactive (NonReactive) A 11/22/17 19:45 Blood Type A POSITIVE 12/16/17 13:01 Antibody Screen Positive 12/16/17 13:01 SANTANA Antibody Screen Cancelled 12/16/17 13:01 Antibody Identification Cold Antibody 12/16/17 13:01 Crossmatch See Detail 12/16/17 13:01 Crossmatch Prewarmed See Detail 12/16/17 13:01
[2018-01-06 05:03] LABS: Basophils # (Auto) 0.1 K/mm3 (0.0-0.1); Basophils % (Auto) 1.2 % (0.0-1.8); Eosinophils # (Auto) 0.5 K/mm3 (0.0-0.4); Hematocrit 23.7 % (35.5-45.6); Hemoglobin 7.4 gm/dl (11.8-15.2); Lymphocytes # (Auto) 1.1 K/mm3 (1.2-5.4); Lymphocytes % (Auto) 9.2 % (13.4-35.0); Mean Corpuscular HGB Conc 31 % (32-34); Mean Corpuscular Volume 78 fl (84-94); Monocytes # (Auto) 0.9 K/mm3 (0.0-0.8); Monocytes % (Auto) 7.6 % (0.0-7.3); Platelet Count 199 K/mm3 (140-440); Red Blood Count 3.05 M/mm3 (3.65-5.03); Red Cell Distribution Width 18.7 % (13.2-15.2)
[2018-01-06 05:08] LABS: Mean Corpuscular Hemoglobin 24 pg (28-32)
[2018-01-06 05:17] LABS: BUN/Creatinine Ratio 33; Blood Urea Nitrogen 10 mg/dL (9-20); Hemolysis Index 160
[2018-01-06] MEDS: POTASSIUM CHLORIDE FEEDTUBE SCH ×2 (09:50→22:10)
[2018-01-06] MEDS: LOPRESSOR PO SCH ×2 (09:51→22:10)
[2018-01-06] MEDS: PREVACID SOLUTAB FEEDTUBE SCH ×2 (09:51→22:13)
[2018-01-06] MEDS: NACL 0.45% 1000 ML 1,000 ML IV SCH ×2 (09:52→23:59)
[2018-01-06] MEDS: MAG-OX PO SCH ×2 (09:52→22:13)
--- NOTE | 2018-01-06 10:06 | Progress Note ---
Assessment and Plan s/p Acute respiratory failure. More coarse secretions this morning. Needs suctioning Trach. patient Sepsis,post PEG related spillage or peritonitis. IR dranage x 2. No fever Stroke ESRD s/p carotid endarterectomy Recommendations Nebs and suction given Currently under hospice discussion with primary care and family. Nephrology follow-up Nutritional support Physical therapy DVT prophylaxis Discussed with staff. No family at the bedside Subjective Date of service: 01/06/18 Principal diagnosis: Acute hypoxic respiratory failure, s/p Trach Interval history: Mostly lethargic, eyes open when called Objective Vital Signs - 12hr 01/05/18 01/06/18 01/06/18 23:00 00:00 01:00 Temperature 99.5 F Pulse Rate 100 H 104 H 100 H Pulse Rate [ 103 H Right From Monitor] Respiratory 20 26 H 33 H Rate Blood Pressure 153/86 152/88 149/80 O2 Sat by Pulse 100 100 100 Oximetry O2 Sat by Pulse Oximetry [ Assessment] 01/06/18 01/06/18 01/06/18 02:00 03:00 04:00 Temperature 99.1 F Pulse Rate 99 H 103 H 103 H Pulse Rate [ 103 H Right From Monitor] Respiratory 30 H 29 H 30 H Rate Blood Pressure 146/82 144/78 150/86 O2 Sat by Pulse 100 100 100 Oximetry O2 Sat by Pulse Oximetry [ Assessment] 01/06/18 01/06/18 01/06/18 05:00 06:00 07:00 Temperature Pulse Rate 106 H 100 H 110 H Pulse Rate [ Right From Monitor] Respiratory 27 H 21 27 H Rate Blood Pressure 152/81 147/89 147/89 O2 Sat by Pulse 100 100 100 Oximetry O2 Sat by Pulse Oximetry [ Assessment] 01/06/18 01/06/18 01/06/18 08:00 08:20 09:00 Temperature 98.4 F Pulse Rate 107 H 106 H Pulse Rate [ Right From Monitor] Respiratory 22 28 H Rate Blood Pressure 153/93 147/90 O2 Sat by Pulse 100 100 100 Oximetry O2 Sat by Pulse 100 Oximetry [ Assessment] 01/06/18 09:51 Temperature Pulse Rate 107 H Pulse Rate [ Right From Monitor] Respiratory Rate Blood Pressure 147/90 O2 Sat by Pulse Oximetry O2 Sat by Pulse Oximetry [ Assessment] Constitutional: no acute distress, lethargic Eyes: non-icteric ENT: oropharynx moist, other (trach in position, no bleeding) Neck: no JVD Effort: normal Ascultation: Bilateral: clear, rhonchi (occasional), other (coarse BS bilaterally) Cardiovascular: regular rate and rhythm Gastrointestinal: normoactive bowel sounds, soft, non-tender Integumentary: normal Extremities: no cyanosis, pink and warm, no ischemia or petechiae Neurologic: other (L hemiparesis, ) Psychiatric: other (unable to assess) CBC and BMP: 01/06/18 04:42 01/06/18 04:42 ABG, PT/INR, D-dimer: ABG POC ABG pH 7.505 (7.35-7.45) H 11/23/17 04:56 POC ABG pCO2 26.3 (35-45) L 11/23/17 04:56 POC ABG pO2 100 (80-105) 11/23/17 04:56 POC ABG HCO3 20.8 11/23/17 04:56 POC ABG Total CO2 22 11/23/17 04:56 POC ABG O2 Sat 98 11/23/17 04:56 PT/INR, D-dimer PT 15.4 Sec. (12.2-14.9) H 12/14/17 05:11 INR 1.17 (0.87-1.13) H 12/14/17 05:11 Abnormal lab findings: Abnormal Labs 11/11/17 11/11/17 11/11/17 23:18 23:20 23:20 WBC RBC Hgb 10.4 L Hct 32.6 L D MCV MCH 27 L MCHC RDW 17.4 H Plt Count 105 L Lymph % (Auto) [place] % (Auto) Eos % (Auto) Lymph # [place] # Eos # Baso # Seg Neutrophils % Seg Neuts % (Manual) Lymphocytes % (Manual) 8.0 L Monocytes % (Manual) Eosinophils % (Manual) Nucleated RBC % 1.0 H Seg Neutrophils # Seg Neutrophils # Man Lymphocytes # (Manual) 0.7 L Monocytes # (Manual) Eosinophils # (Manual) PT INR POC ABG pH 7.550 H POC ABG pCO2 31.6 L POC ABG pO2 Sodium 146 H Potassium Chloride Carbon Dioxide BUN 26 H Creatinine 1.7 H D Glucose 133 H POC Glucose Lactic Acid Calcium Phosphorus Magnesium AST ALT Alkaline Phosphatase Troponin T 0.117 H* C-Reactive Protein Total Protein Albumin 2.5 L LDL Cholesterol Direct 42 L HDL Cholesterol 24 L Urine Creatinine Hepatitis C Antibody Crossmatch Crossmatch [place] 11/11/17 11/12/17 11/12/17 23:20 00:23 00:23 WBC RBC Hgb Hct MCV MCH MCHC RDW Plt Count Lymph % (Auto) [place] % (Auto) Eos % (Auto) Lymph # [place] # Eos # Baso # Seg Neutrophils % Seg Neuts % (Manual) Lymphocytes % (Manual) Monocytes % (Manual) Eosinophils % (Manual) Nucleated RBC % Seg Neutrophils # Seg Neutrophils # Man Lymphocytes # (Manual) Monocytes # (Manual) Eosinophils # (Manual) PT 16.7 H INR 1.28 H POC ABG pH POC ABG pCO2 POC ABG pO2 Sodium Potassium Chloride Carbon Dioxide BUN Creatinine Glucose POC Glucose Lactic Acid 3.20 H* Calcium Phosphorus Magnesium AST ALT Alkaline Phosphatase Troponin T C-Reactive Protein 25.70 H Total Protein Albumin LDL Cholesterol Direct HDL Cholesterol Urine Creatinine Hepatitis C Antibody Crossmatch Crossmatch [place] 11/12/17 11/12/17 11/12/17 00:46 01:27 01:27 WBC RBC Hgb Hct MCV MCH MCHC RDW Plt Count Lymph % (Auto) [place] % (Auto) Eos % (Auto) Lymph # [place] # Eos # Baso # Seg Neutrophils % Seg Neuts % (Manual) Lymphocytes % (Manual) Monocytes % (Manual) Eosinophils % (Manual) Nucleated RBC % Seg Neutrophils # Seg Neutrophils # Man Lymphocytes # (Manual) Monocytes # (Manual) Eosinophils # (Manual) PT INR POC ABG pH 7.495 H POC ABG pCO2 32.0 L POC ABG pO2 64 L Sodium Potassium Chloride Carbon Dioxide BUN Creatinine Glucose POC Glucose Lactic Acid 3.70 H* Calcium Phosphorus Magnesium AST ALT Alkaline Phosphatase Troponin T 0.096 H C-Reactive Protein Total Protein Albumin LDL Cholesterol Direct HDL Cholesterol Urine Creatinine Hepatitis C Antibody Crossmatch Crossmatch [place] 11/12/17 11/12/17 11/12/17 03:21 04:50 06:27 WBC RBC Hgb Hct MCV MCH MCHC RDW Plt Count Lymph % (Auto) [place] % (Auto) Eos % (Auto) Lymph # [place] # Eos # Baso # Seg Neutrophils % Seg Neuts % (Manual) Lymphocytes % (Manual) Monocytes % (Manual) Eosinophils % (Manual) Nucleated RBC % Seg Neutrophils # Seg Neutrophils # Man Lymphocytes # (Manual) Monocytes # (Manual) Eosinophils # (Manual) PT INR POC ABG pH POC ABG pCO2 POC ABG pO2 109 H Sodium Potassium Chloride Carbon Dioxide BUN Creatinine Glucose POC Glucose Lactic Acid 3.80 H* 2.20 H* Calcium Phosphorus Magnesium AST ALT Alkaline Phosphatase Troponin T C-Reactive Protein Total Protein Albumin LDL Cholesterol Direct HDL Cholesterol Urine Creatinine Hepatitis C Antibody Crossmatch Crossmatch [place] 11/12/17 11/12/17 11/12/17 09:24 09:24 09:24 WBC RBC Hgb 10.4 L Hct 33.4 L MCV MCH MCHC RDW Plt Count Lymph % (Auto) [place] % (Auto) Eos % (Auto) Lymph # [place] # Eos # Baso # Seg Neutrophils % Seg Neuts % (Manual) Lymphocytes % (Manual) Monocytes % (Manual) Eosinophils % (Manual) Nucleated RBC % Seg Neutrophils # Seg Neutrophils # Man Lymphocytes # (Manual) Monocytes # (Manual) Eosinophils # (Manual) PT INR POC ABG pH POC ABG pCO2 POC ABG pO2 Sodium Potassium Chloride Carbon Dioxide BUN Creatinine Glucose POC Glucose Lactic Acid 2.90 H* Calcium Phosphorus Magnesium AST ALT Alkaline Phosphatase Troponin T 0.091 H C-Reactive Protein Total Protein Albumin LDL Cholesterol Direct HDL Cholesterol Urine Creatinine Hepatitis C Antibody Crossmatch Crossmatch [place] 11/12/17 11/12/17 11/12/17 12:56 20:03 Unknown WBC RBC Hgb Hct MCV MCH MCHC RDW Plt Count Lymph % (Auto) [place] % (Auto) Eos % (Auto) Lymph # [place] # Eos # Baso # Seg Neutrophils % Seg Neuts % (Manual) Lymphocytes % (Manual) Monocytes % (Manual) Eosinophils % (Manual) Nucleated RBC % Seg Neutrophils # Seg Neutrophils # Man Lymphocytes # (Manual) Monocytes # (Manual) Eosinophils # (Manual) PT INR POC ABG pH POC ABG pCO2 POC ABG pO2 Sodium Potassium Chloride Carbon Dioxide BUN Creatinine Glucose POC Glucose Lactic Acid 3.60 H* Calcium Phosphorus Magnesium AST ALT Alkaline Phosphatase Troponin T 0.102 H* 0.156 H* D C-Reactive Protein Total Protein Albumin LDL Cholesterol Direct HDL Cholesterol Urine Creatinine Hepatitis C Antibody Crossmatch Crossmatch [place] 11/12/17 11/13/17 11/13/17 Unknown 04:50 04:50 WBC 12.2 H RBC 3.51 L Hgb 9.3 L Hct 30.1 L MCV MCH 26 L MCHC 31 L RDW 18.0 H Plt Count 128 L Lymph % (Auto) 8.6 L [place] % (Auto) 11.1 H Eos % (Auto) Lymph # 1.1 L [place] # 1.4 H Eos # Baso # Seg Neutrophils % 80.1 H Seg Neuts % (Manual) Lymphocytes % (Manual) Monocytes % (Manual) Eosinophils % (Manual) Nucleated RBC % Seg Neutrophils # 9.8 H Seg Neutrophils # Man Lymphocytes # (Manual) Monocytes # (Manual) Eosinophils # (Manual) PT INR POC ABG pH POC ABG pCO2 POC ABG pO2 Sodium 149 H Potassium 5.1 H Chloride 114.4 H Carbon Dioxide 18 L BUN 52 H Creatinine 3.3 H D Glucose 129 H POC Glucose Lactic Acid Calcium 7.9 L Phosphorus Magnesium AST ALT Alkaline Phosphatase Troponin T 0.098 H C-Reactive Protein Total Protein Albumin LDL Cholesterol Direct HDL Cholesterol Urine Creatinine Hepatitis C Antibody Crossmatch Crossmatch [place] 11/13/17 11/13/17 11/14/17 04:51 09:34 04:21 WBC RBC Hgb Hct MCV MCH MCHC RDW Plt Count Lymph % (Auto) [place] % (Auto) Eos % (Auto) Lymph # [place] # Eos # Baso # Seg Neutrophils % Seg Neuts % (Manual) Lymphocytes % (Manual) Monocytes % (Manual) Eosinophils % (Manual) Nucleated RBC % Seg Neutrophils # Seg Neutrophils # Man Lymphocytes # (Manual) Monocytes # (Manual) Eosinophils # (Manual) PT INR POC ABG pH POC ABG pCO2 30.1 L 29.8 L POC ABG pO2 135 H Sodium Potassium Chloride Carbon Dioxide BUN Creatinine Glucose POC Glucose Lactic Acid 2.10 H* Calcium Phosphorus Magnesium AST ALT Alkaline Phosphatase Troponin T C-Reactive Protein Total Protein Albumin LDL Cholesterol Direct HDL Cholesterol Urine Creatinine Hepatitis C Antibody Crossmatch Crossmatch [place] 11/15/17 11/15/17 11/16/17 04:52 15:50 05:17 WBC RBC Hgb Hct MCV MCH MCHC RDW Plt Count Lymph % (Auto) [place] % (Auto) Eos % (Auto) Lymph # [place] # Eos # Baso # Seg Neutrophils % Seg Neuts % (Manual) Lymphocytes % (Manual) Monocytes % (Manual) Eosinophils % (Manual) Nucleated RBC % Seg Neutrophils # Seg Neutrophils # Man Lymphocytes # (Manual) Monocytes # (Manual) Eosinophils # (Manual) PT INR POC ABG pH POC ABG pCO2 29.5 L 31.5 L POC ABG pO2 115 H 122 H Sodium 154 H Potassium Chloride 117.9 H Carbon Dioxide 19 L BUN 87 H Creatinine 4.1 H Glucose POC Glucose Lactic Acid Calcium 8.1 L Phosphorus Magnesium AST ALT Alkaline Phosphatase Troponin T C-Reactive Protein Total Protein Albumin LDL Cholesterol Direct HDL Cholesterol Urine Creatinine Hepatitis C Antibody Crossmatch Crossmatch [place] 11/16/17 11/17/17 11/17/17 16:37 04:07 10:00 WBC 14.7 H RBC 3.23 L Hgb 8.3 L Hct 28.1 L MCV MCH 26 L MCHC 30 L RDW 18.8 H Plt Count Lymph % (Auto) [place] % (Auto) Eos % (Auto) Lymph # [place] # Eos # Baso # Seg Neutrophils % Seg Neuts % (Manual) 75 H Lymphocytes % (Manual) 8.0 L Monocytes % (Manual) Eosinophils % (Manual) Nucleated RBC % 1.0 H Seg Neutrophils # Seg Neutrophils # Man 11.0 H Lymphocytes # (Manual) Monocytes # (Manual) 0.9 H Eosinophils # (Manual) PT INR POC ABG pH POC ABG pCO2 POC ABG pO2 Sodium 153 H 155 H Potassium Chloride 117.3 H 119.4 H Carbon Dioxide 19 L 20 L BUN 90 H 89 H Creatinine 3.9 H 3.6 H Glucose 111 H 115 H POC Glucose Lactic Acid Calcium 8.1 L 8.0 L Phosphorus Magnesium AST ALT Alkaline Phosphatase Troponin T C-Reactive Protein Total Protein Albumin LDL Cholesterol Direct HDL Cholesterol Urine Creatinine Hepatitis C Antibody Crossmatch Crossmatch [place] 11/18/17 11/18/17 11/18/17 04:34 04:34 04:34 WBC 15.5 H RBC 3.13 L Hgb 8.1 L Hct 26.3 L MCV MCH 26 L MCHC 31 L RDW 18.6 H Plt Count Lymph % (Auto) [place] % (Auto) Eos % (Auto) Lymph # [place] # Eos # Baso # Seg Neutrophils % Seg Neuts % (Manual) 81.0 H Lymphocytes % (Manual) 7.0 L Monocytes % (Manual) Eosinophils % (Manual) Nucleated RBC % 1.0 H Seg Neutrophils # Seg Neutrophils # Man 12.6 H Lymphocytes # (Manual) 1.1 L Monocytes # (Manual) Eosinophils # (Manual) PT 16.7 H INR 1.30 H POC ABG pH POC ABG pCO2 POC ABG pO2 Sodium 155 H Potassium 3.2 L Chloride 121.0 H Carbon Dioxide 20 L BUN 74 H Creatinine 2.9 H Glucose 126 H POC Glucose Lactic Acid Calcium 7.9 L Phosphorus Magnesium AST ALT Alkaline Phosphatase Troponin T C-Reactive Protein Total Protein Albumin LDL Cholesterol Direct HDL Cholesterol Urine Creatinine Hepatitis C Antibody Crossmatch Crossmatch [place] 11/19/17 11/19/17 11/20/17 04:44 04:44 00:38 WBC 19.0 H 22.2 H RBC 3.20 L 3.17 L Hgb 8.4 L 7.9 L Hct 27.9 L 26.4 L MCV 83 L MCH 26 L 25 L MCHC 30 L 30 L RDW 19.1 H 18.9 H Plt Count Lymph % (Auto) [place] % (Auto) Eos % (Auto) Lymph # [place] # Eos # Baso # Seg Neutrophils % Seg Neuts % (Manual) 83.0 H Lymphocytes % (Manual) 3.0 L Monocytes % (Manual) 9.0 H Eosinophils % (Manual) Nucleated RBC % Seg Neutrophils # Seg Neutrophils # Man 18.4 H Lymphocytes # (Manual) 0.7 L Monocytes # (Manual) 2.0 H Eosinophils # (Manual) PT INR POC ABG pH POC ABG pCO2 POC ABG pO2 Sodium 152 H Potassium Chloride 117.1 H Carbon Dioxide 17 L BUN 66 H Creatinine 2.8 H Glucose 119 H POC Glucose Lactic Acid Calcium 7.8 L Phosphorus Magnesium 2.70 H AST ALT Alkaline Phosphatase Troponin T C-Reactive Protein Total Protein Albumin LDL Cholesterol Direct HDL Cholesterol Urine Creatinine Hepatitis C Antibody Crossmatch Crossmatch [place] 11/20/17 11/20/17 11/20/17 03:29 04:48 13:38 WBC RBC Hgb Hct MCV MCH MCHC RDW Plt Count Lymph % (Auto) [place] % (Auto) Eos % (Auto) Lymph # [place] # Eos # Baso # Seg Neutrophils % Seg Neuts % (Manual) Lymphocytes % (Manual) Monocytes % (Manual) Eosinophils % (Manual) Nucleated RBC % Seg Neutrophils # Seg Neutrophils # Man Lymphocytes # (Manual) Monocytes # (Manual) Eosinophils # (Manual) PT INR POC ABG pH POC ABG pCO2 29.4 L POC ABG pO2 Sodium 148 H Potassium 3.4 L Chloride 113.7 H Carbon Dioxide 18 L BUN 59 H Creatinine 2.7 H Glucose 113 H POC Glucose 128 H Lactic Acid Calcium 7.8 L Phosphorus Magnesium AST ALT Alkaline Phosphatase Troponin T C-Reactive Protein Total Protein Albumin LDL Cholesterol Direct HDL Cholesterol Urine Creatinine Hepatitis C Antibody Crossmatch Crossmatch [place] 11/20/17 11/20/17 11/21/17 17:38 23:40 00:13 WBC RBC Hgb 8.4 L Hct 28.0 L MCV MCH MCHC RDW Plt Count Lymph % (Auto) [place] % (Auto) Eos % (Auto) Lymph # [place] # Eos # Baso # Seg Neutrophils % Seg Neuts % (Manual) Lymphocytes % (Manual) Monocytes % (Manual) Eosinophils % (Manual) Nucleated RBC % Seg Neutrophils # Seg Neutrophils # Man Lymphocytes # (Manual) Monocytes # (Manual) Eosinophils # (Manual) PT INR POC ABG pH POC ABG pCO2 POC ABG pO2 Sodium Potassium Chloride Carbon Dioxide BUN Creatinine Glucose POC Glucose 115 H 145 H Lactic Acid Calcium Phosphorus Magnesium AST ALT Alkaline Phosphatase Troponin T C-Reactive Protein Total Protein Albumin LDL Cholesterol Direct HDL Cholesterol Urine Creatinine Hepatitis C Antibody Crossmatch Crossmatch [place] 11/21/17 11/21/17 11/21/17 04:30 04:30 04:58 WBC 21.0 H RBC Hgb 9.6 L Hct 32.7 L MCV MCH 25 L MCHC 29 L RDW 19.7 H Plt Count 746 H Lymph % (Auto) [place] % (Auto) Eos % (Auto) Lymph # [place] # Eos # Baso # Seg Neutrophils % Seg Neuts % (Manual) Lymphocytes % (Manual) Monocytes % (Manual) Eosinophils % (Manual) Nucleated RBC % Seg Neutrophils # Seg Neutrophils # Man Lymphocytes # (Manual) Monocytes # (Manual) Eosinophils # (Manual) PT INR POC ABG pH POC ABG pCO2 POC ABG pO2 Sodium Potassium Chloride 109.4 H Carbon Dioxide 14 L BUN 59 H Creatinine 3.0 H Glucose 137 H POC Glucose 132 H Lactic Acid Calcium 7.6 L Phosphorus Magnesium AST ALT Alkaline Phosphatase Troponin T C-Reactive Protein Total Protein Albumin LDL Cholesterol Direct HDL Cholesterol Urine Creatinine Hepatitis C Antibody Crossmatch Crossmatch [place] 11/21/17 11/21/17 11/21/17 06:30 13:43 14:17 WBC 38.2 H RBC Hgb 9.0 L Hct 32.3 L MCV MCH 25 L MCHC 28 L RDW 20.0 H Plt Count 766 H Lymph % (Auto) [place] % (Auto) Eos % (Auto) Lymph # [place] # Eos # Baso # Seg Neutrophils % Seg Neuts % (Manual) 85.0 H Lymphocytes % (Manual) 1.0 L Monocytes % (Manual) Eosinophils % (Manual) Nucleated RBC % 2.0 H Seg Neutrophils # Seg Neutrophils # Man 32.5 H Lymphocytes # (Manual) 0.4 L Monocytes # (Manual) 2.3 H Eosinophils # (Manual) PT INR POC ABG pH POC ABG pCO2 18.6 L POC ABG pO2 121 H Sodium 146 H Potassium Chloride 110.9 H Carbon Dioxide 11 L BUN 62 H Creatinine 4.0 H Glucose 64 L POC Glucose Lactic Acid Calcium 7.6 L Phosphorus Magnesium AST ALT Alkaline Phosphatase Troponin T C-Reactive Protein Total Protein Albumin LDL Cholesterol Direct HDL Cholesterol Urine Creatinine Hepatitis C Antibody Crossmatch Crossmatch [place] 11/21/17 11/21/17 11/22/17 14:17 19:09 00:05 WBC RBC Hgb Hct MCV MCH MCHC RDW Plt Count Lymph % (Auto) [place] % (Auto) Eos % (Auto) Lymph # [place] # Eos # Baso # Seg Neutrophils % Seg Neuts % (Manual) Lymphocytes % (Manual) Monocytes % (Manual) Eosinophils % (Manual) Nucleated RBC % Seg Neutrophils # Seg Neutrophils # Man Lymphocytes # (Manual) Monocytes # (Manual) Eosinophils # (Manual) PT INR POC ABG pH POC ABG pCO2 20.0 L POC ABG pO2 Sodium Potassium Chloride Carbon Dioxide BUN Creatinine Glucose POC Glucose 127 H Lactic Acid 7.70 H* Calcium Phosphorus Magnesium AST ALT Alkaline Phosphatase Troponin T C-Reactive Protein Total Protein Albumin LDL Cholesterol Direct HDL Cholesterol Urine Creatinine Hepatitis C Antibody Crossmatch Crossmatch [place] 11/22/17 11/22/17 11/22/17 03:53 06:00 07:25 WBC RBC Hgb Hct MCV MCH MCHC RDW Plt Count Lymph % (Auto) [place] % (Auto) Eos % (Auto) Lymph # [place] # Eos # Baso # Seg Neutrophils % Seg Neuts % (Manual) Lymphocytes % (Manual) Monocytes % (Manual) Eosinophils % (Manual) Nucleated RBC % Seg Neutrophils # Seg Neutrophils # Man Lymphocytes # (Manual) Monocytes # (Manual) Eosinophils # (Manual) PT INR POC ABG pH POC ABG pCO2 22.2 L POC ABG pO2 Sodium 147 H Potassium Chloride 111.9 H Carbon Dioxide 16 L BUN 72 H Creatinine 5.1 H Glucose 181 H POC Glucose 180 H Lactic Acid Calcium 7.1 L Phosphorus Magnesium AST ALT Alkaline Phosphatase Troponin T C-Reactive Protein Total Protein Albumin LDL Cholesterol Direct HDL Cholesterol Urine Creatinine Hepatitis C Antibody Crossmatch Crossmatch [place] 11/22/17 11/22/17 11/22/17 07:25 07:25 12:05 WBC 31.4 H RBC 3.22 L Hgb 8.0 L Hct 26.7 L MCV 83 L MCH 25 L MCHC 30 L RDW 19.4 H Plt Count 602 H Lymph % (Auto) [place] % (Auto) Eos % (Auto) Lymph # [place] # Eos # Baso # Seg Neutrophils % Seg Neuts % (Manual) Lymphocytes % (Manual) Monocytes % (Manual) Eosinophils % (Manual) Nucleated RBC % Seg Neutrophils # Seg Neutrophils # Man Lymphocytes # (Manual) Monocytes # (Manual) Eosinophils # (Manual) PT INR POC ABG pH POC ABG pCO2 POC ABG pO2 Sodium Potassium Chloride Carbon Dioxide BUN Creatinine Glucose POC Glucose 182 H Lactic Acid 5.00 H* Calcium Phosphorus Magnesium AST ALT Alkaline Phosphatase Troponin T C-Reactive Protein Total Protein Albumin LDL Cholesterol Direct HDL Cholesterol Urine Creatinine Hepatitis C Antibody Crossmatch Crossmatch [place] 11/22/17 11/23/17 11/23/17 19:45 01:28 04:56 WBC RBC Hgb Hct MCV MCH MCHC RDW Plt Count Lymph % (Auto) [place] % (Auto) Eos % (Auto) Lymph # [place] # Eos # Baso # Seg Neutrophils % Seg Neuts % (Manual) Lymphocytes % (Manual) Monocytes % (Manual) Eosinophils % (Manual) Nucleated RBC % Seg Neutrophils # Seg Neutrophils # Man Lymphocytes # (Manual) Monocytes # (Manual) Eosinophils # (Manual) PT INR POC ABG pH 7.505 H POC ABG pCO2 26.3 L POC ABG pO2 Sodium Potassium Chloride Carbon Dioxide BUN Creatinine Glucose POC Glucose 165 H Lactic Acid Calcium Phosphorus Magnesium AST ALT Alkaline Phosphatase Troponin T C-Reactive Protein Total Protein Albumin LDL Cholesterol Direct HDL Cholesterol Urine Creatinine Hepatitis C Antibody Reactive A Crossmatch Crossmatch [place] 11/23/17 11/23/17 11/23/17 07:05 12:32 17:53 WBC RBC Hgb Hct MCV MCH MCHC RDW Plt Count Lymph % (Auto) [place] % (Auto) Eos % (Auto) Lymph # [place] # Eos # Baso # Seg Neutrophils % Seg Neuts % (Manual) Lymphocytes % (Manual) Monocytes % (Manual) Eosinophils % (Manual) Nucleated RBC % Seg Neutrophils # Seg Neutrophils # Man Lymphocytes # (Manual) Monocytes # (Manual) Eosinophils # (Manual) PT INR POC ABG pH POC ABG pCO2 POC ABG pO2 Sodium Potassium Chloride Carbon Dioxide 18 L BUN 61 H Creatinine 4.2 H Glucose 153 H POC Glucose 138 H 173 H Lactic Acid Calcium 7.5 L Phosphorus Magnesium AST ALT Alkaline Phosphatase Troponin T C-Reactive Protein Total Protein Albumin LDL Cholesterol Direct HDL Cholesterol Urine Creatinine Hepatitis C Antibody Crossmatch Crossmatch [place] 11/23/17 11/24/17 11/24/17 23:41 05:42 05:42 WBC 21.5 H RBC 2.48 L Hgb 6.2 L Hct 20.3 L D MCV 82 L MCH 25 L MCHC 31 L RDW 18.9 H Plt Count Lymph % (Auto) [place] % (Auto) Eos % (Auto) Lymph # [place] # Eos # Baso # Seg Neutrophils % Seg Neuts % (Manual) 94.0 H Lymphocytes % (Manual) 3.0 L Monocytes % (Manual) Eosinophils % (Manual) Nucleated RBC % Seg Neutrophils # Seg Neutrophils # Man 20.2 H Lymphocytes # (Manual) 0.6 L Monocytes # (Manual) Eosinophils # (Manual) PT INR POC ABG pH POC ABG pCO2 POC ABG pO2 Sodium 149 H Potassium 2.8 L* D Chloride 113.9 H Carbon Dioxide 19 L BUN 31 H Creatinine 2.3 H Glucose 103 H POC Glucose 133 H Lactic Acid Calcium 5.3 L* D Phosphorus Magnesium 1.30 L AST ALT Alkaline Phosphatase Troponin T C-Reactive Protein Total Protein Albumin LDL Cholesterol Direct HDL Cholesterol Urine Creatinine Hepatitis C Antibody Crossmatch Crossmatch [place] 11/24/17 11/24/17 11/24/17 05:42 08:27 08:27 WBC RBC Hgb Hct MCV MCH MCHC RDW Plt Count Lymph % (Auto) [place] % (Auto) Eos % (Auto) Lymph # [place] # Eos # Baso # Seg Neutrophils % Seg Neuts % (Manual) Lymphocytes % (Manual) Monocytes % (Manual) Eosinophils % (Manual) Nucleated RBC % Seg Neutrophils # Seg Neutrophils # Man Lymphocytes # (Manual) Monocytes # (Manual) Eosinophils # (Manual) PT INR POC ABG pH POC ABG pCO2 POC ABG pO2 Sodium Potassium Chloride Carbon Dioxide BUN Creatinine Glucose POC Glucose Lactic Acid 5.40 H* 5.20 H* Calcium Phosphorus Magnesium AST ALT Alkaline Phosphatase Troponin T C-Reactive Protein Total Protein Albumin LDL Cholesterol Direct HDL Cholesterol Urine Creatinine Hepatitis C Antibody Crossmatch See Detail Crossmatch [place] 11/24/17 11/24/17 11/24/17 12:13 17:22 21:53 WBC 23.0 H RBC 3.32 L Hgb 8.8 L Hct 27.1 L D MCV 82 L MCH 26 L MCHC RDW 17.3 H Plt Count Lymph % (Auto) [place] % (Auto) Eos % (Auto) Lymph # [place] # Eos # Baso # Seg Neutrophils % Seg Neuts % (Manual) Lymphocytes % (Manual) Monocytes % (Manual) Eosinophils % (Manual) Nucleated RBC % Seg Neutrophils # Seg Neutrophils # Man Lymphocytes # (Manual) Monocytes # (Manual) Eosinophils # (Manual) PT INR POC ABG pH POC ABG pCO2 POC ABG pO2 Sodium Potassium Chloride Carbon Dioxide BUN Creatinine Glucose POC Glucose 138 H 180 H Lactic Acid Calcium Phosphorus Magnesium AST ALT Alkaline Phosphatase Troponin T C-Reactive Protein Total Protein Albumin LDL Cholesterol Direct HDL Cholesterol Urine Creatinine Hepatitis C Antibody Crossmatch Crossmatch [place] 11/24/17 11/24/17 11/25/17 21:53 23:28 04:19 WBC RBC Hgb Hct MCV MCH MCHC RDW Plt Count Lymph % (Auto) [place] % (Auto) Eos % (Auto) Lymph # [place] # Eos # Baso # Seg Neutrophils % Seg Neuts % (Manual) Lymphocytes % (Manual) Monocytes % (Manual) Eosinophils % (Manual) Nucleated RBC % Seg Neutrophils # Seg Neutrophils # Man Lymphocytes # (Manual) Monocytes # (Manual) Eosinophils # (Manual) PT INR POC ABG pH POC ABG pCO2 POC ABG pO2 Sodium Potassium Chloride 96.3 L Carbon Dioxide BUN 28 H 31 H Creatinine 2.3 H 2.6 H Glucose 125 H 101 H POC Glucose 111 H Lactic Acid Calcium 7.5 L D 7.4 L Phosphorus Magnesium AST 170 H ALT 179 H Alkaline Phosphatase 175 H Troponin T C-Reactive Protein Total Protein 5.5 L Albumin 1.8 L LDL Cholesterol Direct HDL Cholesterol Urine Creatinine Hepatitis C Antibody Crossmatch Crossmatch [place] 11/25/17 11/25/17 11/26/17 04:19 04:19 06:29 WBC 22.5 H RBC 3.48 L Hgb 9.1 L Hct 28.3 L MCV 81 L MCH 26 L MCHC RDW 17.4 H Plt Count Lymph % (Auto) [place] % (Auto) Eos % (Auto) Lymph # [place] # Eos # Baso # Seg Neutrophils % Seg Neuts % (Manual) Lymphocytes % (Manual) Monocytes % (Manual) Eosinophils % (Manual) Nucleated RBC % Seg Neutrophils # Seg Neutrophils # Man Lymphocytes # (Manual) Monocytes # (Manual) Eosinophils # (Manual) PT 23.6 H INR 1.96 H POC ABG pH POC ABG pCO2 POC ABG pO2 Sodium Potassium Chloride Carbon Dioxide BUN 31 H Creatinine 2.6 H Glucose 101 H POC Glucose Lactic Acid Calcium 7.5 L Phosphorus Magnesium AST ALT Alkaline Phosphatase Troponin T C-Reactive Protein Total Protein Albumin LDL Cholesterol Direct HDL Cholesterol Urine Creatinine Hepatitis C Antibody Crossmatch Crossmatch [facility] 11/26/17 11/27/17 11/27/17 06:34 04:06 04:06 WBC 11.3 H RBC 3.13 L Hgb 8.4 L Hct 25.8 L MCV 82 L MCH 27 L MCHC RDW 17.7 H Plt Count Lymph % (Auto) 7.4 L [place] % (Auto) Eos % (Auto) Lymph # 0.8 L [place] # Eos # Baso # Seg Neutrophils % 83.7 H Seg Neuts % (Manual) Lymphocytes % (Manual) Monocytes % (Manual) Eosinophils % (Manual) Nucleated RBC % Seg Neutrophils # 9.5 H Seg Neutrophils # Man Lymphocytes # (Manual) Monocytes # (Manual) Eosinophils # (Manual) PT INR POC ABG pH POC ABG pCO2 POC ABG pO2 Sodium Potassium Chloride 97.9 L Carbon Dioxide BUN 43 H 29 H Creatinine 3.5 H 2.9 H Glucose POC Glucose Lactic Acid Calcium 7.5 L 8.1 L Phosphorus Magnesium AST ALT Alkaline Phosphatase Troponin T C-Reactive Protein Total Protein Albumin LDL Cholesterol Direct HDL Cholesterol Urine Creatinine Hepatitis C Antibody Crossmatch Crossmatch [facility] 09/10/0711/28/17 11/28/17 18:11 00:16 03:50 WBC RBC Hgb Hct MCV MCH MCHC RDW Plt Count Lymph % (Auto) [place] % (Auto) Eos % (Auto) Lymph # [place] # Eos # Baso # Seg Neutrophils % Seg Neuts % (Manual) Lymphocytes % (Manual) Monocytes % (Manual) Eosinophils % (Manual) Nucleated RBC % Seg Neutrophils # Seg Neutrophils # Man Lymphocytes # (Manual) Monocytes # (Manual) Eosinophils # (Manual) PT INR POC ABG pH POC ABG pCO2 POC ABG pO2 Sodium Potassium Chloride Carbon Dioxide BUN 39 H Creatinine 4.1 H Glucose 108 H POC Glucose 110 H 124 H Lactic Acid Calcium 7.9 L Phosphorus Magnesium AST ALT Alkaline Phosphatase Troponin T C-Reactive Protein Total Protein Albumin LDL Cholesterol Direct HDL Cholesterol Urine Creatinine Hepatitis C Antibody Crossmatch Crossmatch [facility] 11/28/17 11/28/17 11/28/17 05:03 11:36 17:42 WBC RBC Hgb Hct MCV MCH MCHC RDW Plt Count Lymph % (Auto) [place] % (Auto) Eos % (Auto) Lymph # [place] # Eos # Baso # Seg Neutrophils % Seg Neuts % (Manual) Lymphocytes % (Manual) Monocytes % (Manual) Eosinophils % (Manual) Nucleated RBC % Seg Neutrophils # Seg Neutrophils # Man Lymphocytes # (Manual) Monocytes # (Manual) Eosinophils # (Manual) PT INR POC ABG pH POC ABG pCO2 POC ABG pO2 Sodium Potassium Chloride Carbon Dioxide BUN Creatinine Glucose POC Glucose 134 H 114 H 119 H Lactic Acid Calcium Phosphorus Magnesium AST ALT Alkaline Phosphatase Troponin T C-Reactive Protein Total Protein Albumin LDL Cholesterol Direct HDL Cholesterol Urine Creatinine Hepatitis C Antibody Crossmatch Crossmatch [facility] 11/29/17 11/29/17 11/29/17 00:22 05:25 05:25 WBC 12.3 H RBC 3.34 L Hgb 8.6 L Hct 27.3 L MCV 82 L MCH 26 L MCHC RDW 18.5 H Plt Count Lymph % (Auto) 3.7 L [place] % (Auto) 7.7 H Eos % (Auto) Lymph # 0.5 L [place] # 1.0 H Eos # Baso # Seg Neutrophils % 86.5 H Seg Neuts % (Manual) Lymphocytes % (Manual) Monocytes % (Manual) Eosinophils % (Manual) Nucleated RBC % Seg Neutrophils # 10.7 H Seg Neutrophils # Man Lymphocytes # (Manual) Monocytes # (Manual) Eosinophils # (Manual) PT INR POC ABG pH POC ABG pCO2 POC ABG pO2 Sodium Potassium Chloride Carbon Dioxide BUN 29 H Creatinine 3.5 H Glucose 109 H POC Glucose 137 H Lactic Acid Calcium 7.8 L Phosphorus Magnesium AST ALT Alkaline Phosphatase Troponin T C-Reactive Protein Total Protein Albumin LDL Cholesterol Direct HDL Cholesterol Urine Creatinine Hepatitis C Antibody Crossmatch Crossmatch [facility] 11/29/17 11/30/17 11/30/17 05:26 00:26 04:17 WBC RBC Hgb Hct MCV MCH MCHC RDW Plt Count Lymph % (Auto) [place] % (Auto) Eos % (Auto) Lymph # [place] # Eos # Baso # Seg Neutrophils % Seg Neuts % (Manual) Lymphocytes % (Manual) Monocytes % (Manual) Eosinophils % (Manual) Nucleated RBC % Seg Neutrophils # Seg Neutrophils # Man Lymphocytes # (Manual) Monocytes # (Manual) Eosinophils # (Manual) PT INR POC ABG pH POC ABG pCO2 POC ABG pO2 Sodium Potassium Chloride Carbon Dioxide BUN 38 H Creatinine 4.3 H Glucose 109 H POC Glucose 129 H 152 H Lactic Acid Calcium 7.8 L Phosphorus Magnesium AST ALT Alkaline Phosphatase Troponin T C-Reactive Protein Total Protein Albumin LDL Cholesterol Direct HDL Cholesterol Urine Creatinine Hepatitis C Antibody Crossmatch Crossmatch [facility] 11/30/17 11/30/17 11/30/17 12:17 16:23 23:35 WBC RBC Hgb Hct MCV MCH MCHC RDW Plt Count Lymph % (Auto) [place] % (Auto) Eos % (Auto) Lymph # [place] # Eos # Baso # Seg Neutrophils % Seg Neuts % (Manual) Lymphocytes % (Manual) Monocytes % (Manual) Eosinophils % (Manual) Nucleated RBC % Seg Neutrophils # Seg Neutrophils # Man Lymphocytes # (Manual) Monocytes # (Manual) Eosinophils # (Manual) PT INR POC ABG pH POC ABG pCO2 POC ABG pO2 Sodium Potassium Chloride Carbon Dioxide BUN Creatinine Glucose POC Glucose 170 H 114 H 122 H Lactic Acid Calcium Phosphorus Magnesium AST ALT Alkaline Phosphatase Troponin T C-Reactive Protein Total Protein Albumin LDL Cholesterol Direct HDL Cholesterol Urine Creatinine Hepatitis C Antibody Crossmatch Crossmatch [facility] 12/01/17 12/01/17 12/01/17 04:09 04:09 12:17 WBC 14.1 H RBC 3.32 L Hgb 8.6 L Hct 27.0 L MCV 81 L MCH 26 L MCHC RDW 18.7 H Plt Count Lymph % (Auto) 5.5 L [place] % (Auto) 9.7 H Eos % (Auto) Lymph # 0.8 L [place] # 1.4 H Eos # Baso # Seg Neutrophils % 82.9 H Seg Neuts % (Manual) Lymphocytes % (Manual) Monocytes % (Manual) Eosinophils % (Manual) Nucleated RBC % Seg Neutrophils # 11.7 H Seg Neutrophils # Man Lymphocytes # (Manual) Monocytes # (Manual) Eosinophils # (Manual) PT INR POC ABG pH POC ABG pCO2 POC ABG pO2 Sodium Potassium 3.4 L Chloride Carbon Dioxide BUN 21 H Creatinine 3.0 H Glucose 108 H POC Glucose 126 H Lactic Acid Calcium 8.0 L Phosphorus Magnesium AST ALT Alkaline Phosphatase Troponin T C-Reactive Protein Total Protein Albumin LDL Cholesterol Direct HDL Cholesterol Urine Creatinine Hepatitis C Antibody Crossmatch Crossmatch [facility] 12/02/17 12/03/17 12/03/17 23:46 02:52 05:54 WBC 17.2 H RBC 3.21 L Hgb 8.5 L Hct 25.8 L MCV 80 L MCH 26 L MCHC RDW 18.4 H Plt Count 128 L Lymph % (Auto) [place] % (Auto) Eos % (Auto) Lymph # [place] # Eos # Baso # Seg Neutrophils % Seg Neuts % (Manual) Lymphocytes % (Manual) Monocytes % (Manual) Eosinophils % (Manual) Nucleated RBC % Seg Neutrophils # Seg Neutrophils # Man Lymphocytes # (Manual) Monocytes # (Manual) Eosinophils # (Manual) PT INR POC ABG pH POC ABG pCO2 POC ABG pO2 Sodium Potassium Chloride Carbon Dioxide BUN Creatinine Glucose POC Glucose 125 H 107 H Lactic Acid Calcium Phosphorus Magnesium AST ALT Alkaline Phosphatase Troponin T C-Reactive Protein Total Protein Albumin LDL Cholesterol Direct HDL Cholesterol Urine Creatinine Hepatitis C Antibody Crossmatch Crossmatch [facility] 12/03/17 12/03/17 12/04/17 12:05 Unknown 12:26 WBC RBC Hgb Hct MCV MCH MCHC RDW Plt Count Lymph % (Auto) [place] % (Auto) Eos % (Auto) Lymph # [place] # Eos # Baso # Seg Neutrophils % Seg Neuts % (Manual) Lymphocytes % (Manual) Monocytes % (Manual) Eosinophils % (Manual) Nucleated RBC % Seg Neutrophils # Seg Neutrophils # Man Lymphocytes # (Manual) Monocytes # (Manual) Eosinophils # (Manual) PT INR POC ABG pH POC ABG pCO2 POC ABG pO2 Sodium Potassium Chloride Carbon Dioxide BUN 21 H Creatinine 2.8 H Glucose 113 H POC Glucose 106 H 119 H Lactic Acid Calcium Phosphorus Magnesium AST ALT Alkaline Phosphatase Troponin T C-Reactive Protein Total Protein Albumin LDL Cholesterol Direct HDL Cholesterol Urine Creatinine Hepatitis C Antibody Crossmatch Crossmatch [facility] 12/04/17 12/05/17 12/05/17 17:57 00:52 04:05 WBC RBC 2.96 L Hgb 7.7 L Hct 24.2 L MCV 82 L MCH 26 L MCHC RDW 18.8 H Plt Count 105 L Lymph % (Auto) 10.6 L [place] % (Auto) 12.1 H Eos % (Auto) 5.2 H Lymph # 1.1 L [place] # 1.3 H Eos # 0.5 H Baso # Seg Neutrophils % 71.3 H Seg Neuts % (Manual) Lymphocytes % (Manual) Monocytes % (Manual) Eosinophils % (Manual) Nucleated RBC % Seg Neutrophils # Seg Neutrophils # Man Lymphocytes # (Manual) Monocytes # (Manual) Eosinophils # (Manual) PT INR POC ABG pH POC ABG pCO2 POC ABG pO2 Sodium Potassium Chloride Carbon Dioxide BUN Creatinine Glucose POC Glucose 140 H 117 H Lactic Acid Calcium Phosphorus Magnesium AST ALT Alkaline Phosphatase Troponin T C-Reactive Protein Total Protein Albumin LDL Cholesterol Direct HDL Cholesterol Urine Creatinine Hepatitis C Antibody Crossmatch Crossmatch [facility] 12/05/17 12/05/17 12/06/17 04:05 22:50 08:18 WBC RBC 2.80 L Hgb 7.4 L Hct 23.0 L MCV 82 L MCH 27 L MCHC RDW 19.5 H Plt Count 125 L Lymph % (Auto) [place] % (Auto) Eos % (Auto) Lymph # [place] # Eos # Baso # Seg Neutrophils % Seg Neuts % (Manual) Lymphocytes % (Manual) Monocytes % (Manual) Eosinophils % (Manual) Nucleated RBC % Seg Neutrophils # Seg Neutrophils # Man Lymphocytes # (Manual) Monocytes # (Manual) Eosinophils # (Manual) PT INR POC ABG pH POC ABG pCO2 POC ABG pO2 Sodium Potassium Chloride 107.4 H Carbon Dioxide BUN Creatinine 2.5 H Glucose POC Glucose 112 H Lactic Acid Calcium 8.3 L Phosphorus Magnesium AST ALT Alkaline Phosphatase Troponin T C-Reactive Protein Total Protein Albumin LDL Cholesterol Direct HDL Cholesterol Urine Creatinine Hepatitis C Antibody Crossmatch Crossmatch [facility] 12/06/17 12/06/17 12/06/17 08:18 12:01 23:58 WBC RBC Hgb Hct MCV MCH MCHC RDW Plt Count Lymph % (Auto) [place] % (Auto) Eos % (Auto) Lymph # [place] # Eos # Baso # Seg Neutrophils % Seg Neuts % (Manual) Lymphocytes % (Manual) Monocytes % (Manual) Eosinophils % (Manual) Nucleated RBC % Seg Neutrophils # Seg Neutrophils # Man Lymphocytes # (Manual) Monocytes # (Manual) Eosinophils # (Manual) PT INR POC ABG pH POC ABG pCO2 POC ABG pO2 Sodium Potassium Chloride 108.4 H Carbon Dioxide BUN 28 H Creatinine 3.7 H Glucose 103 H POC Glucose 106 H 108 H Lactic Acid Calcium 8.0 L Phosphorus Magnesium AST ALT Alkaline Phosphatase Troponin T C-Reactive Protein Total Protein Albumin LDL Cholesterol Direct HDL Cholesterol Urine Creatinine Hepatitis C Antibody Crossmatch Crossmatch [facility] 12/07/17 12/07/17 12/07/17 05:47 05:47 18:03 WBC RBC 2.79 L Hgb 7.3 L Hct 22.8 L MCV 82 L MCH 26 L MCHC RDW 19.1 H Plt Count 101 L Lymph % (Auto) [place] % (Auto) Eos % (Auto) Lymph # [place] # Eos # Baso # Seg Neutrophils % Seg Neuts % (Manual) 72.0 H Lymphocytes % (Manual) 13.0 L Monocytes % (Manual) Eosinophils % (Manual) 9.0 H Nucleated RBC % Seg Neutrophils # Seg Neutrophils # Man Lymphocytes # (Manual) 1.1 L Monocytes # (Manual) Eosinophils # (Manual) 0.8 H PT INR POC ABG pH POC ABG pCO2 POC ABG pO2 Sodium 146 H Potassium Chloride 109.8 H Carbon Dioxide BUN 36 H Creatinine 4.0 H Glucose POC Glucose 143 H Lactic Acid Calcium 8.0 L Phosphorus Magnesium AST ALT Alkaline Phosphatase Troponin T C-Reactive Protein Total Protein Albumin LDL Cholesterol Direct HDL Cholesterol Urine Creatinine Hepatitis C Antibody Crossmatch Crossmatch [facility] 12/07/17 12/08/17 12/08/17 23:33 05:10 05:10 WBC RBC 2.91 L Hgb 7.5 L Hct 24.4 L MCV MCH 26 L MCHC 31 L RDW 19.7 H Plt Count 109 L Lymph % (Auto) [place] % (Auto) Eos % (Auto) Lymph # [place] # Eos # Baso # Seg Neutrophils % Seg Neuts % (Manual) Lymphocytes % (Manual) 11.0 L Monocytes % (Manual) Eosinophils % (Manual) 12.0 H Nucleated RBC % Seg Neutrophils # Seg Neutrophils # Man Lymphocytes # (Manual) 0.7 L Monocytes # (Manual) Eosinophils # (Manual) 0.7 H PT INR POC ABG pH POC ABG pCO2 POC ABG pO2 Sodium 147 H Potassium Chloride 110.4 H Carbon Dioxide BUN Creatinine 2.8 H Glucose POC Glucose 107 H Lactic Acid Calcium 7.8 L Phosphorus Magnesium AST ALT Alkaline Phosphatase Troponin T C-Reactive Protein Total Protein Albumin LDL Cholesterol Direct HDL Cholesterol Urine Creatinine Hepatitis C Antibody Crossmatch Crossmatch [facility] 12/09/17 12/09/17 12/09/17 04:18 04:18 12:16 WBC RBC Hgb 7.2 L Hct 23.2 L MCV MCH MCHC RDW Plt Count Lymph % (Auto) [place] % (Auto) Eos % (Auto) Lymph # [place] # Eos # Baso # Seg Neutrophils % Seg Neuts % (Manual) Lymphocytes % (Manual) Monocytes % (Manual) Eosinophils % (Manual) Nucleated RBC % Seg Neutrophils # Seg Neutrophils # Man Lymphocytes # (Manual) Monocytes # (Manual) Eosinophils # (Manual) PT INR POC ABG pH POC ABG pCO2 POC ABG pO2 Sodium 150 H Potassium Chloride 114.5 H Carbon Dioxide BUN 25 H Creatinine 3.3 H Glucose POC Glucose 142 H Lactic Acid Calcium 7.7 L Phosphorus Magnesium AST ALT Alkaline Phosphatase Troponin T C-Reactive Protein Total Protein Albumin LDL Cholesterol Direct HDL Cholesterol Urine Creatinine Hepatitis C Antibody Crossmatch Crossmatch [facility] 12/10/17 12/10/17 12/11/17 05:14 05:14 12:05 WBC RBC 2.81 L Hgb 7.4 L Hct 23.9 L MCV MCH 26 L MCHC 31 L RDW 19.1 H Plt Count 128 L Lymph % (Auto) [place] % (Auto) Eos % (Auto) Lymph # [place] # Eos # Baso # Seg Neutrophils % Seg Neuts % (Manual) 78.0 H Lymphocytes % (Manual) 8.0 L Monocytes % (Manual) Eosinophils % (Manual) 5.0 H Nucleated RBC % Seg Neutrophils # Seg Neutrophils # Man Lymphocytes # (Manual) 0.6 L Monocytes # (Manual) Eosinophils # (Manual) PT INR POC ABG pH POC ABG pCO2 POC ABG pO2 Sodium Potassium Chloride Carbon Dioxide BUN Creatinine 2.2 H Glucose POC Glucose 127 H Lactic Acid Calcium 7.8 L Phosphorus Magnesium AST ALT Alkaline Phosphatase Troponin T C-Reactive Protein Total Protein Albumin LDL Cholesterol Direct HDL Cholesterol Urine Creatinine Hepatitis C Antibody Crossmatch Crossmatch [facility] 12/11/17 12/11/17 12/11/17 15:26 18:36 23:40 WBC RBC Hgb Hct MCV MCH MCHC RDW Plt Count Lymph % (Auto) [place] % (Auto) Eos % (Auto) Lymph # [place] # Eos # Baso # Seg Neutrophils % Seg Neuts % (Manual) Lymphocytes % (Manual) Monocytes % (Manual) Eosinophils % (Manual) Nucleated RBC % Seg Neutrophils # Seg Neutrophils # Man Lymphocytes # (Manual) Monocytes # (Manual) Eosinophils # (Manual) PT INR POC ABG pH POC ABG pCO2 POC ABG pO2 Sodium Potassium 3.3 L Chloride Carbon Dioxide BUN Creatinine 1.6 H Glucose POC Glucose 106 H 110 H Lactic Acid Calcium 7.6 L Phosphorus Magnesium AST ALT Alkaline Phosphatase Troponin T C-Reactive Protein Total Protein Albumin LDL Cholesterol Direct HDL Cholesterol Urine Creatinine Hepatitis C Antibody Crossmatch Crossmatch [facility] 12/12/17 12/12/17 12/12/17 05:10 05:41 05:41 WBC RBC 3.17 L Hgb 8.1 L Hct 25.7 L MCV 81 L MCH 25 L MCHC 31 L RDW 19.2 H Plt Count Lymph % (Auto) [place] % (Auto) Eos % (Auto) Lymph # [place] # Eos # Baso # Seg Neutrophils % Seg Neuts % (Manual) 74.0 H Lymphocytes % (Manual) 6.0 L Monocytes % (Manual) Eosinophils % (Manual) 9.0 H Nucleated RBC % Seg Neutrophils # Seg Neutrophils # Man Lymphocytes # (Manual) 0.6 L Monocytes # (Manual) Eosinophils # (Manual) 0.9 H PT INR POC ABG pH POC ABG pCO2 POC ABG pO2 Sodium Potassium 3.5 L Chloride Carbon Dioxide BUN Creatinine 2.3 H Glucose 113 H POC Glucose 112 H Lactic Acid Calcium 7.5 L Phosphorus Magnesium AST ALT Alkaline Phosphatase Troponin T C-Reactive Protein Total Protein Albumin LDL Cholesterol Direct HDL Cholesterol Urine Creatinine Hepatitis C Antibody Crossmatch Crossmatch [facility] 12/13/17 12/13/17 12/13/17 06:14 12:00 17:37 WBC RBC Hgb Hct MCV MCH MCHC RDW Plt Count Lymph % (Auto) [place] % (Auto) Eos % (Auto) Lymph # [place] # Eos # Baso # Seg Neutrophils % Seg Neuts % (Manual) Lymphocytes % (Manual) Monocytes % (Manual) Eosinophils % (Manual) Nucleated RBC % Seg Neutrophils # Seg Neutrophils # Man Lymphocytes # (Manual) Monocytes # (Manual) Eosinophils # (Manual) PT INR POC ABG pH POC ABG pCO2 POC ABG pO2 Sodium Potassium Chloride Carbon Dioxide BUN Creatinine Glucose POC Glucose 130 H 133 H 136 H Lactic Acid Calcium Phosphorus Magnesium AST ALT Alkaline Phosphatase Troponin T C-Reactive Protein Total Protein Albumin LDL Cholesterol Direct HDL Cholesterol Urine Creatinine Hepatitis C Antibody Crossmatch Crossmatch [facility] 12/13/17 12/14/17 12/14/17 23:39 05:11 05:11 WBC RBC Hgb Hct MCV MCH MCHC RDW Plt Count Lymph % (Auto) [place] % (Auto) Eos % (Auto) Lymph # [place] # Eos # Baso # Seg Neutrophils % Seg Neuts % (Manual) Lymphocytes % (Manual) Monocytes % (Manual) Eosinophils % (Manual) Nucleated RBC % Seg Neutrophils # Seg Neutrophils # Man Lymphocytes # (Manual) Monocytes # (Manual) Eosinophils # (Manual) PT 15.4 H INR 1.17 H POC ABG pH POC ABG pCO2 POC ABG pO2 Sodium Potassium Chloride Carbon Dioxide 21 L BUN 26 H Creatinine 2.9 H Glucose POC Glucose 108 H Lactic Acid Calcium 7.2 L Phosphorus Magnesium AST ALT Alkaline Phosphatase Troponin T C-Reactive Protein Total Protein Albumin LDL Cholesterol Direct HDL Cholesterol Urine Creatinine Hepatitis C Antibody Crossmatch Crossmatch [facility] 12/14/17 12/14/17 12/14/17 12:00 16:01 18:24 WBC 12.9 H RBC 3.25 L Hgb 8.2 L Hct 26.2 L MCV 81 L MCH 25 L MCHC 31 L RDW 19.2 H Plt Count Lymph % (Auto) [place] % (Auto) Eos % (Auto) Lymph # [place] # Eos # Baso # Seg Neutrophils % Seg Neuts % (Manual) Lymphocytes % (Manual) Monocytes % (Manual) Eosinophils % (Manual) Nucleated RBC % Seg Neutrophils # Seg Neutrophils # Man Lymphocytes # (Manual) Monocytes # (Manual) Eosinophils # (Manual) PT INR POC ABG pH POC ABG pCO2 POC ABG pO2 Sodium Potassium Chloride Carbon Dioxide BUN Creatinine Glucose POC Glucose 138 H 120 H Lactic Acid Calcium Phosphorus Magnesium AST ALT Alkaline Phosphatase Troponin T C-Reactive Protein Total Protein Albumin LDL Cholesterol Direct HDL Cholesterol Urine Creatinine Hepatitis C Antibody Crossmatch Crossmatch [facility] 12/14/17 12/14/17 12/15/17 23:29 Unknown 05:57 WBC 12.5 H RBC 2.48 L Hgb 6.0 L Hct 24.4 L MCV 79 L MCH 24 L MCHC 30 L RDW 18.5 H Plt Count 131 L Lymph % (Auto) 7.0 L [place] % (Auto) 8.9 H Eos % (Auto) 8.3 H Lymph # 0.9 L [place] # 1.1 H Eos # 1.0 H Baso # Seg Neutrophils % 75.2 H Seg Neuts % (Manual) Lymphocytes % (Manual) Monocytes % (Manual) Eosinophils % (Manual) Nucleated RBC % Seg Neutrophils # 9.4 H Seg Neutrophils # Man Lymphocytes # (Manual) Monocytes # (Manual) Eosinophils # (Manual) PT INR POC ABG pH POC ABG pCO2 POC ABG pO2 Sodium Potassium Chloride Carbon Dioxide BUN Creatinine Glucose POC Glucose 110 H 113 H Lactic Acid Calcium Phosphorus Magnesium AST ALT Alkaline Phosphatase Troponin T C-Reactive Protein Total Protein Albumin LDL Cholesterol Direct HDL Cholesterol Urine Creatinine Hepatitis C Antibody Crossmatch Crossmatch [facility] 12/15/17 12/15/17 12/15/17 11:50 13:37 17:58 WBC RBC Hgb 7.3 L Hct 23.3 L MCV MCH MCHC RDW Plt Count Lymph % (Auto) [place] % (Auto) Eos % (Auto) Lymph # [place] # Eos # Baso # Seg Neutrophils % Seg Neuts % (Manual) Lymphocytes % (Manual) Monocytes % (Manual) Eosinophils % (Manual) Nucleated RBC % Seg Neutrophils # Seg Neutrophils # Man Lymphocytes # (Manual) Monocytes # (Manual) Eosinophils # (Manual) PT INR POC ABG pH POC ABG pCO2 POC ABG pO2 Sodium Potassium Chloride Carbon Dioxide BUN Creatinine Glucose POC Glucose 106 H 110 H Lactic Acid Calcium Phosphorus Magnesium AST ALT Alkaline Phosphatase Troponin T C-Reactive Protein Total Protein Albumin LDL Cholesterol Direct HDL Cholesterol Urine Creatinine Hepatitis C Antibody Crossmatch Crossmatch [facility] 09/12/16/17 12/16/17 23:30 04:55 05:14 WBC 13.2 H RBC 2.79 L Hgb 6.9 L Hct 22.2 L MCV 80 L MCH 25 L MCHC 31 L RDW 18.8 H Plt Count Lymph % (Auto) 7.3 L [place] % (Auto) 11.0 H Eos % (Auto) 8.2 H Lymph # 1.0 L [place] # 1.4 H Eos # 1.1 H Baso # Seg Neutrophils % 72.9 H Seg Neuts % (Manual) Lymphocytes % (Manual) Monocytes % (Manual) Eosinophils % (Manual) Nucleated RBC % Seg Neutrophils # 9.6 H Seg Neutrophils # Man Lymphocytes # (Manual) Monocytes # (Manual) Eosinophils # (Manual) PT INR POC ABG pH POC ABG pCO2 POC ABG pO2 Sodium 131 L D Potassium 2.8 L* D Chloride 93.2 L Carbon Dioxide BUN 24 H Creatinine 2.0 H Glucose POC Glucose 111 H Lactic Acid Calcium 7.7 L Phosphorus Magnesium AST ALT Alkaline Phosphatase Troponin T C-Reactive Protein Total Protein Albumin LDL Cholesterol Direct HDL Cholesterol Urine Creatinine Hepatitis C Antibody Crossmatch Crossmatch [facility] 12/16/17 12/16/17 12/16/17 13:01 17:32 23:39 WBC RBC Hgb Hct MCV MCH MCHC RDW Plt Count Lymph % (Auto) [place] % (Auto) Eos % (Auto) Lymph # [place] # Eos # Baso # Seg Neutrophils % Seg Neuts % (Manual) Lymphocytes % (Manual) Monocytes % (Manual) Eosinophils % (Manual) Nucleated RBC % Seg Neutrophils # Seg Neutrophils # Man Lymphocytes # (Manual) Monocytes # (Manual) Eosinophils # (Manual) PT INR POC ABG pH POC ABG pCO2 POC ABG pO2 Sodium Potassium Chloride Carbon Dioxide BUN Creatinine Glucose POC Glucose 121 H 107 H Lactic Acid Calcium Phosphorus Magnesium AST ALT Alkaline Phosphatase Troponin T C-Reactive Protein Total Protein Albumin LDL Cholesterol Direct HDL Cholesterol Urine Creatinine Hepatitis C Antibody Crossmatch Crossmatch [facility] See Detail 12/17/17 12/17/17 12/17/17 05:08 05:08 12:03 WBC 12.9 H RBC 2.88 L Hgb 7.2 L Hct 22.6 L MCV 78 L MCH 25 L MCHC RDW 18.3 H Plt Count Lymph % (Auto) 8.0 L [place] % (Auto) 8.6 H Eos % (Auto) Lymph # 1.0 L [place] # 1.1 H Eos # Baso # Seg Neutrophils % 79.3 H Seg Neuts % (Manual) Lymphocytes % (Manual) Monocytes % (Manual) Eosinophils % (Manual) Nucleated RBC % Seg Neutrophils # 10.2 H Seg Neutrophils # Man Lymphocytes # (Manual) Monocytes # (Manual) Eosinophils # (Manual) PT INR POC ABG pH POC ABG pCO2 POC ABG pO2 Sodium Potassium 3.4 L D Chloride Carbon Dioxide BUN Creatinine Glucose 104 H POC Glucose 109 H Lactic Acid Calcium 7.6 L Phosphorus Magnesium 1.30 L AST ALT Alkaline Phosphatase 177 H Troponin T C-Reactive Protein Total Protein Albumin 2.0 L LDL Cholesterol Direct HDL Cholesterol Urine Creatinine Hepatitis C Antibody Crossmatch Crossmatch [facility] 12/17/17 12/18/17 12/18/17 23:40 00:50 00:50 WBC 22.6 H RBC 2.76 L Hgb 6.7 L Hct 21.6 L MCV 78 L MCH 24 L MCHC 31 L RDW 18.4 H Plt Count Lymph % (Auto) [place] % (Auto) Eos % (Auto) Lymph # [place] # Eos # Baso # Seg Neutrophils % Seg Neuts % (Manual) Lymphocytes % (Manual) Monocytes % (Manual) Eosinophils % (Manual) Nucleated RBC % Seg Neutrophils # Seg Neutrophils # Man Lymphocytes # (Manual) Monocytes # (Manual) Eosinophils # (Manual) PT INR POC ABG pH POC ABG pCO2 POC ABG pO2 Sodium Potassium Chloride Carbon Dioxide BUN 22 H Creatinine 1.6 H Glucose 113 H POC Glucose 120 H Lactic Acid Calcium 7.8 L Phosphorus Magnesium 1.50 L AST ALT Alkaline Phosphatase Troponin T C-Reactive Protein Total Protein Albumin LDL Cholesterol Direct HDL Cholesterol Urine Creatinine Hepatitis C Antibody Crossmatch Crossmatch [facility] 12/18/17 12/18/17 12/18/17 05:34 12:00 18:07 WBC RBC Hgb Hct MCV MCH MCHC RDW Plt Count Lymph % (Auto) [place] % (Auto) Eos % (Auto) Lymph # [place] # Eos # Baso # Seg Neutrophils % Seg Neuts % (Manual) Lymphocytes % (Manual) Monocytes % (Manual) Eosinophils % (Manual) Nucleated RBC % Seg Neutrophils # Seg Neutrophils # Man Lymphocytes # (Manual) Monocytes # (Manual) Eosinophils # (Manual) PT INR POC ABG pH POC ABG pCO2 POC ABG pO2 Sodium Potassium Chloride Carbon Dioxide BUN Creatinine Glucose POC Glucose 132 H 136 H 122 H Lactic Acid Calcium Phosphorus Magnesium AST ALT Alkaline Phosphatase Troponin T C-Reactive Protein Total Protein Albumin LDL Cholesterol Direct HDL Cholesterol Urine Creatinine Hepatitis C Antibody Crossmatch Crossmatch [facility] 12/19/17 12/19/17 12/19/17 00:24 00:24 05:17 WBC 15.4 H RBC 2.41 L Hgb 6.1 L Hct 19.0 L* MCV 79 L MCH 25 L MCHC RDW 18.5 H Plt Count Lymph % (Auto) [place] % (Auto) Eos % (Auto) Lymph # [place] # Eos # Baso # Seg Neutrophils % Seg Neuts % (Manual) Lymphocytes % (Manual) Monocytes % (Manual) Eosinophils % (Manual) Nucleated RBC % Seg Neutrophils # Seg Neutrophils # Man Lymphocytes # (Manual) Monocytes # (Manual) Eosinophils # (Manual) PT INR POC ABG pH POC ABG pCO2 POC ABG pO2 Sodium Potassium 3.2 L Chloride Carbon Dioxide BUN Creatinine Glucose 117 H POC Glucose 132 H Lactic Acid Calcium 8.2 L Phosphorus Magnesium 1.50 L AST ALT Alkaline Phosphatase Troponin T C-Reactive Protein Total Protein Albumin LDL Cholesterol Direct HDL Cholesterol Urine Creatinine Hepatitis C Antibody Crossmatch Crossmatch [facility] 12/19/17 12/19/17 12/19/17 09:00 09:00 18:01 WBC 12.4 H RBC 2.86 L Hgb 7.2 L Hct 22.6 L MCV 79 L MCH 25 L MCHC RDW 17.2 H Plt Count Lymph % (Auto) 6.8 L [place] % (Auto) 12.6 H Eos % (Auto) Lymph # 0.8 L [place] # 1.6 H Eos # Baso # Seg Neutrophils % 80.1 H Seg Neuts % (Manual) Lymphocytes % (Manual) Monocytes % (Manual) Eosinophils % (Manual) Nucleated RBC % Seg Neutrophils # 10.0 H Seg Neutrophils # Man Lymphocytes # (Manual) Monocytes # (Manual) Eosinophils # (Manual) PT INR POC ABG pH POC ABG pCO2 POC ABG pO2 Sodium Potassium 3.1 L Chloride Carbon Dioxide BUN 22 H Creatinine Glucose 113 H POC Glucose 117 H Lactic Acid Calcium 8.3 L Phosphorus Magnesium AST 54 H ALT Alkaline Phosphatase 204 H Troponin T C-Reactive Protein Total Protein 5.8 L Albumin 2.0 L LDL Cholesterol Direct HDL Cholesterol Urine Creatinine Hepatitis C Antibody Crossmatch Crossmatch [place] 12/19/17 12/20/17 12/20/17 23:49 05:53 19:00 WBC RBC 3.03 L Hgb 7.7 L Hct 23.7 L MCV 78 L MCH 25 L MCHC RDW 17.2 H Plt Count Lymph % (Auto) [place] % (Auto) Eos % (Auto) Lymph # [place] # Eos # Baso # Seg Neutrophils % Seg Neuts % (Manual) 74.0 H Lymphocytes % (Manual) 6.0 L Monocytes % (Manual) 17.0 H Eosinophils % (Manual) Nucleated RBC % Seg Neutrophils # Seg Neutrophils # Man Lymphocytes # (Manual) 0.5 L Monocytes # (Manual) 1.5 H Eosinophils # (Manual) PT INR POC ABG pH POC ABG pCO2 POC ABG pO2 Sodium Potassium Chloride Carbon Dioxide BUN Creatinine Glucose POC Glucose 125 H 124 H Lactic Acid Calcium Phosphorus Magnesium AST ALT Alkaline Phosphatase Troponin T C-Reactive Protein Total Protein Albumin LDL Cholesterol Direct HDL Cholesterol Urine Creatinine Hepatitis C Antibody Crossmatch Crossmatch [place] 12/20/17 12/21/17 12/22/17 19:00 23:54 05:07 WBC RBC Hgb Hct MCV MCH MCHC RDW Plt Count Lymph % (Auto) [place] % (Auto) Eos % (Auto) Lymph # [place] # Eos # Baso # Seg Neutrophils % Seg Neuts % (Manual) Lymphocytes % (Manual) Monocytes % (Manual) Eosinophils % (Manual) Nucleated RBC % Seg Neutrophils # Seg Neutrophils # Man Lymphocytes # (Manual) Monocytes # (Manual) Eosinophils # (Manual) PT INR POC ABG pH POC ABG pCO2 POC ABG pO2 Sodium Potassium 3.3 L 2.9 L* Chloride Carbon Dioxide BUN 37 H 43 H Creatinine Glucose 114 H POC Glucose 109 H Lactic Acid Calcium 8.3 L 7.8 L Phosphorus 1.60 L Magnesium 1.50 L AST ALT Alkaline Phosphatase Troponin T C-Reactive Protein Total Protein Albumin LDL Cholesterol Direct HDL Cholesterol Urine Creatinine Hepatitis C Antibody Crossmatch Crossmatch [place] 12/22/17 12/22/17 12/22/17 05:07 05:07 06:02 WBC 4.1 L RBC 3.09 L Hgb 7.7 L Hct 24.3 L MCV 79 L MCH 25 L MCHC RDW 17.8 H Plt Count Lymph % (Auto) [place] % (Auto) Eos % (Auto) Lymph # [place] # Eos # Baso # Seg Neutrophils % Seg Neuts % (Manual) Lymphocytes % (Manual) Monocytes % (Manual) Eosinophils % (Manual) Nucleated RBC % Seg Neutrophils # Seg Neutrophils # Man Lymphocytes # (Manual) Monocytes # (Manual) Eosinophils # (Manual) PT INR POC ABG pH POC ABG pCO2 POC ABG pO2 Sodium Potassium Chloride Carbon Dioxide BUN Creatinine Glucose POC Glucose 107 H Lactic Acid Calcium Phosphorus Magnesium 1.60 L AST ALT Alkaline Phosphatase Troponin T C-Reactive Protein Total Protein Albumin LDL Cholesterol Direct HDL Cholesterol Urine Creatinine Hepatitis C Antibody Crossmatch Crossmatch [place] 12/22/17 12/22/17 12/22/17 10:50 12:02 17:32 WBC RBC Hgb Hct MCV MCH MCHC RDW Plt Count Lymph % (Auto) [place] % (Auto) Eos % (Auto) Lymph # [place] # Eos # Baso # Seg Neutrophils % Seg Neuts % (Manual) Lymphocytes % (Manual) Monocytes % (Manual) Eosinophils % (Manual) Nucleated RBC % Seg Neutrophils # Seg Neutrophils # Man Lymphocytes # (Manual) Monocytes # (Manual) Eosinophils # (Manual) PT INR POC ABG pH POC ABG pCO2 POC ABG pO2 Sodium Potassium Chloride Carbon Dioxide BUN Creatinine Glucose POC Glucose 129 H 111 H Lactic Acid Calcium Phosphorus Magnesium AST ALT Alkaline Phosphatase Troponin T C-Reactive Protein Total Protein Albumin LDL Cholesterol Direct HDL Cholesterol Urine Creatinine 55.8 H Hepatitis C Antibody Crossmatch Crossmatch [place] 12/22/17 12/22/17 12/23/17 19:03 23:57 05:55 WBC RBC Hgb Hct MCV MCH MCHC RDW Plt Count Lymph % (Auto) [place] % (Auto) Eos % (Auto) Lymph # [place] # Eos # Baso # Seg Neutrophils % Seg Neuts % (Manual) Lymphocytes % (Manual) Monocytes % (Manual) Eosinophils % (Manual) Nucleated RBC % Seg Neutrophils # Seg Neutrophils # Man Lymphocytes # (Manual) Monocytes # (Manual) Eosinophils # (Manual) PT INR POC ABG pH POC ABG pCO2 POC ABG pO2 Sodium Potassium 3.4 L 2.9 L* Chloride Carbon Dioxide BUN 40 H Creatinine Glucose 107 H POC Glucose 128 H Lactic Acid Calcium 7.9 L Phosphorus Magnesium AST ALT Alkaline Phosphatase Troponin T C-Reactive Protein Total Protein Albumin LDL Cholesterol Direct HDL Cholesterol Urine Creatinine Hepatitis C Antibody Crossmatch Crossmatch [place] 12/23/17 12/23/17 12/23/17 05:55 05:55 11:59 WBC 3.8 L RBC 3.10 L Hgb 7.7 L Hct 25.5 L MCV 82 L MCH 25 L MCHC 30 L RDW 17.9 H Plt Count Lymph % (Auto) [place] % (Auto) Eos % (Auto) Lymph # [place] # Eos # Baso # Seg Neutrophils % Seg Neuts % (Manual) Lymphocytes % (Manual) Monocytes % (Manual) Eosinophils % (Manual) Nucleated RBC % Seg Neutrophils # Seg Neutrophils # Man Lymphocytes # (Manual) Monocytes # (Manual) Eosinophils # (Manual) PT INR POC ABG pH POC ABG pCO2 POC ABG pO2 Sodium Potassium Chloride Carbon Dioxide BUN Creatinine Glucose POC Glucose 115 H Lactic Acid Calcium Phosphorus Magnesium 1.60 L AST ALT Alkaline Phosphatase Troponin T C-Reactive Protein Total Protein Albumin LDL Cholesterol Direct HDL Cholesterol Urine Creatinine Hepatitis C Antibody Crossmatch Crossmatch [place] 12/23/17 12/24/17 12/24/17 22:48 00:29 03:17 WBC RBC Hgb Hct MCV MCH MCHC RDW Plt Count Lymph % (Auto) [place] % (Auto) Eos % (Auto) Lymph # [place] # Eos # Baso # Seg Neutrophils % Seg Neuts % (Manual) Lymphocytes % (Manual) Monocytes % (Manual) Eosinophils % (Manual) Nucleated RBC % Seg Neutrophils # Seg Neutrophils # Man Lymphocytes # (Manual) Monocytes # (Manual) Eosinophils # (Manual) PT INR POC ABG pH POC ABG pCO2 POC ABG pO2 Sodium 146 H Potassium 2.9 L* 3.4 L Chloride Carbon Dioxide BUN 36 H Creatinine 0.7 L Glucose POC Glucose 111 H Lactic Acid Calcium 7.5 L Phosphorus Magnesium 1.60 L AST 76 H ALT 59 H Alkaline Phosphatase 294 H Troponin T C-Reactive Protein Total Protein 5.8 L Albumin 2.2 L LDL Cholesterol Direct HDL Cholesterol Urine Creatinine Hepatitis C Antibody Crossmatch Crossmatch [place] 12/24/17 12/24/17 12/24/17 03:17 05:14 17:05 WBC RBC 3.03 L Hgb 7.6 L Hct 23.7 L MCV 78 L MCH 25 L MCHC RDW 17.8 H Plt Count Lymph % (Auto) [place] % (Auto) Eos % (Auto) Lymph # [place] # Eos # Baso # Seg Neutrophils % Seg Neuts % (Manual) Lymphocytes % (Manual) Monocytes % (Manual) Eosinophils % (Manual) Nucleated RBC % Seg Neutrophils # Seg Neutrophils # Man Lymphocytes # (Manual) Monocytes # (Manual) Eosinophils # (Manual) PT INR POC ABG pH POC ABG pCO2 POC ABG pO2 Sodium Potassium Chloride Carbon Dioxide BUN Creatinine Glucose POC Glucose 127 H 132 H Lactic Acid Calcium Phosphorus Magnesium AST ALT Alkaline Phosphatase Troponin T C-Reactive Protein Total Protein Albumin LDL Cholesterol Direct HDL Cholesterol Urine Creatinine Hepatitis C Antibody Crossmatch Crossmatch [place] 12/25/17 12/25/17 12/25/17 00:03 04:34 06:25 WBC RBC Hgb Hct MCV MCH MCHC RDW Plt Count Lymph % (Auto) [place] % (Auto) Eos % (Auto) Lymph # [place] # Eos # Baso # Seg Neutrophils % Seg Neuts % (Manual) Lymphocytes % (Manual) Monocytes % (Manual) Eosinophils % (Manual) Nucleated RBC % Seg Neutrophils # Seg Neutrophils # Man Lymphocytes # (Manual) Monocytes # (Manual) Eosinophils # (Manual) PT INR POC ABG pH POC ABG pCO2 POC ABG pO2 Sodium Potassium Chloride Carbon Dioxide BUN 30 H Creatinine 0.6 L Glucose 114 H POC Glucose 128 H 136 H Lactic Acid Calcium 7.5 L Phosphorus Magnesium AST 84 H ALT 82 H Alkaline Phosphatase 322 H Troponin T C-Reactive Protein Total Protein 6.0 L Albumin 2.3 L LDL Cholesterol Direct HDL Cholesterol Urine Creatinine Hepatitis C Antibody Crossmatch Crossmatch [place] 12/25/17 12/25/17 12/26/17 12:02 18:28 00:03 WBC RBC Hgb Hct MCV MCH MCHC RDW Plt Count Lymph % (Auto) [place] % (Auto) Eos % (Auto) Lymph # [place] # Eos # Baso # Seg Neutrophils % Seg Neuts % (Manual) Lymphocytes % (Manual) Monocytes % (Manual) Eosinophils % (Manual) Nucleated RBC % Seg Neutrophils # Seg Neutrophils # Man Lymphocytes # (Manual) Monocytes # (Manual) Eosinophils # (Manual) PT INR POC ABG pH POC ABG pCO2 POC ABG pO2 Sodium Potassium Chloride Carbon Dioxide BUN Creatinine Glucose POC Glucose 158 H 113 H 117 H Lactic Acid Calcium Phosphorus Magnesium AST ALT Alkaline Phosphatase Troponin T C-Reactive Protein Total Protein Albumin LDL Cholesterol Direct HDL Cholesterol Urine Creatinine Hepatitis C Antibody Crossmatch Crossmatch [place] 12/26/17 12/26/17 12/26/17 04:26 06:35 08:47 WBC RBC Hgb Hct MCV MCH MCHC RDW Plt Count Lymph % (Auto) [place] % (Auto) Eos % (Auto) Lymph # [place] # Eos # Baso # Seg Neutrophils % Seg Neuts % (Manual) Lymphocytes % (Manual) Monocytes % (Manual) Eosinophils % (Manual) Nucleated RBC % Seg Neutrophils # Seg Neutrophils # Man Lymphocytes # (Manual) Monocytes # (Manual) Eosinophils # (Manual) PT INR POC ABG pH POC ABG pCO2 POC ABG pO2 Sodium Potassium 5.4 H D 3.3 L D Chloride Carbon Dioxide 21 L BUN 39 H Creatinine 0.7 L Glucose 121 H POC Glucose 122 H Lactic Acid Calcium 7.8 L Phosphorus Magnesium AST 144 H ALT 98 H Alkaline Phosphatase 330 H Troponin T C-Reactive Protein Total Protein 6.1 L Albumin 2.1 L LDL Cholesterol Direct HDL Cholesterol Urine Creatinine Hepatitis C Antibody Crossmatch Crossmatch [place] 12/26/17 12/26/17 12/27/17 12:29 18:27 07:34 WBC RBC Hgb Hct MCV MCH MCHC RDW Plt Count Lymph % (Auto) [place] % (Auto) Eos % (Auto) Lymph # [place] # Eos # Baso # Seg Neutrophils % Seg Neuts % (Manual) Lymphocytes % (Manual) Monocytes % (Manual) Eosinophils % (Manual) Nucleated RBC % Seg Neutrophils # Seg Neutrophils # Man Lymphocytes # (Manual) Monocytes # (Manual) Eosinophils # (Manual) PT INR POC ABG pH POC ABG pCO2 POC ABG pO2 Sodium Potassium 3.1 L Chloride Carbon Dioxide BUN Creatinine 0.5 L Glucose POC Glucose 128 H 121 H Lactic Acid Calcium 7.7 L Phosphorus Magnesium AST 74 H ALT 80 H Alkaline Phosphatase 306 H Troponin T C-Reactive Protein Total Protein 6.1 L Albumin 2.1 L LDL Cholesterol Direct HDL Cholesterol Urine Creatinine Hepatitis C Antibody Crossmatch Crossmatch [place] 12/27/17 12/28/17 12/28/17 07:34 04:59 04:59 WBC 11.1 H RBC 3.00 L Hgb 7.2 L Hct 23.6 L MCV 79 L MCH 24 L MCHC 31 L RDW 18.3 H Plt Count Lymph % (Auto) 10.0 L [place] % (Auto) 10.2 H Eos % (Auto) 6.7 H Lymph # 1.1 L [place] # 1.1 H Eos # 0.7 H Baso # Seg Neutrophils % 72.1 H Seg Neuts % (Manual) Lymphocytes % (Manual) Monocytes % (Manual) Eosinophils % (Manual) Nucleated RBC % Seg Neutrophils # 8.0 H Seg Neutrophils # Man Lymphocytes # (Manual) Monocytes # (Manual) Eosinophils # (Manual) PT INR POC ABG pH POC ABG pCO2 POC ABG pO2 Sodium Potassium Chloride Carbon Dioxide BUN Creatinine 0.4 L Glucose 102 H POC Glucose Lactic Acid Calcium 7.8 L Phosphorus Magnesium 1.30 L AST 58 H ALT 62 H Alkaline Phosphatase 274 H Troponin T C-Reactive Protein Total Protein 6.0 L Albumin 2.0 L LDL Cholesterol Direct HDL Cholesterol Urine Creatinine Hepatitis C Antibody Crossmatch Crossmatch [place] 12/28/17 12/29/17 12/29/17 18:06 04:02 04:02 WBC RBC Hgb Hct MCV MCH MCHC RDW Plt Count Lymph % (Auto) [place] % (Auto) Eos % (Auto) Lymph # [place] # Eos # Baso # Seg Neutrophils % Seg Neuts % (Manual) Lymphocytes % (Manual) Monocytes % (Manual) Eosinophils % (Manual) Nucleated RBC % Seg Neutrophils # Seg Neutrophils # Man Lymphocytes # (Manual) Monocytes # (Manual) Eosinophils # (Manual) PT INR POC ABG pH POC ABG pCO2 POC ABG pO2 Sodium Potassium Chloride Carbon Dioxide BUN Creatinine 0.5 L Glucose POC Glucose 107 H Lactic Acid Calcium 7.8 L Phosphorus Magnesium 1.40 L AST 50 H ALT Alkaline Phosphatase 311 H Troponin T C-Reactive Protein Total Protein 5.9 L Albumin 2.3 L LDL Cholesterol Direct HDL Cholesterol Urine Creatinine Hepatitis C Antibody Crossmatch Crossmatch [place] 12/29/17 12/29/17 12/30/17 12:10 17:33 04:46 WBC RBC Hgb Hct MCV MCH MCHC RDW Plt Count Lymph % (Auto) [place] % (Auto) Eos % (Auto) Lymph # [place] # Eos # Baso # Seg Neutrophils % Seg Neuts % (Manual) Lymphocytes % (Manual) Monocytes % (Manual) Eosinophils % (Manual) Nucleated RBC % Seg Neutrophils # Seg Neutrophils # Man Lymphocytes # (Manual) Monocytes # (Manual) Eosinophils # (Manual) PT INR POC ABG pH POC ABG pCO2 POC ABG pO2 Sodium Potassium Chloride Carbon Dioxide BUN Creatinine 0.5 L Glucose POC Glucose 124 H 108 H Lactic Acid Calcium 8.2 L Phosphorus Magnesium AST ALT Alkaline Phosphatase 288 H Troponin T C-Reactive Protein Total Protein Albumin 2.4 L LDL Cholesterol Direct HDL Cholesterol Urine Creatinine Hepatitis C Antibody Crossmatch Crossmatch [place] 12/30/17 12/31/17 12/31/17 04:46 04:03 04:03 WBC RBC Hgb Hct MCV MCH MCHC RDW Plt Count Lymph % (Auto) [place] % (Auto) Eos % (Auto) Lymph # [place] # Eos # Baso # Seg Neutrophils % Seg Neuts % (Manual) Lymphocytes % (Manual) Monocytes % (Manual) Eosinophils % (Manual) Nucleated RBC % Seg Neutrophils # Seg Neutrophils # Man Lymphocytes # (Manual) Monocytes # (Manual) Eosinophils # (Manual) PT INR POC ABG pH POC ABG pCO2 POC ABG pO2 Sodium Potassium Chloride Carbon Dioxide BUN Creatinine 0.4 L Glucose 103 H POC Glucose Lactic Acid Calcium 8.1 L Phosphorus Magnesium 1.50 L 1.30 L AST ALT Alkaline Phosphatase Troponin T C-Reactive Protein Total Protein Albumin LDL Cholesterol Direct HDL Cholesterol Urine Creatinine Hepatitis C Antibody Crossmatch Crossmatch [place] 12/31/17 12/31/17 01/01/18 16:56 23:55 04:26 WBC RBC Hgb Hct MCV MCH MCHC RDW Plt Count Lymph % (Auto) [place] % (Auto) Eos % (Auto) Lymph # [place] # Eos # Baso # Seg Neutrophils % Seg Neuts % (Manual) Lymphocytes % (Manual) Monocytes % (Manual) Eosinophils % (Manual) Nucleated RBC % Seg Neutrophils # Seg Neutrophils # Man Lymphocytes # (Manual) Monocytes # (Manual) Eosinophils # (Manual) PT INR POC ABG pH POC ABG pCO2 POC ABG pO2 Sodium Potassium 3.5 L Chloride Carbon Dioxide BUN Creatinine 0.3 L Glucose 105 H POC Glucose 106 H 108 H Lactic Acid Calcium 7.9 L Phosphorus Magnesium AST ALT Alkaline Phosphatase Troponin T C-Reactive Protein Total Protein Albumin LDL Cholesterol Direct HDL Cholesterol Urine Creatinine Hepatitis C Antibody Crossmatch Crossmatch [place] 01/01/18 01/01/18 01/02/18 04:26 05:26 03:45 WBC RBC 3.07 L Hgb 7.6 L Hct 24.1 L MCV 78 L MCH 25 L MCHC 31 L RDW 18.2 H Plt Count Lymph % (Auto) [place] % (Auto) Eos % (Auto) Lymph # [place] # Eos # Baso # Seg Neutrophils % Seg Neuts % (Manual) 72.0 H Lymphocytes % (Manual) 13.0 L Monocytes % (Manual) Eosinophils % (Manual) 7.0 H Nucleated RBC % 1.0 H Seg Neutrophils # Seg Neutrophils # Man Lymphocytes # (Manual) Monocytes # (Manual) Eosinophils # (Manual) 0.7 H PT INR POC ABG pH POC ABG pCO2 POC ABG pO2 Sodium 134 L Potassium Chloride Carbon Dioxide BUN Creatinine 0.4 L Glucose POC Glucose 107 H Lactic Acid Calcium 8.1 L Phosphorus Magnesium AST ALT Alkaline Phosphatase Troponin T C-Reactive Protein Total Protein Albumin LDL Cholesterol Direct HDL Cholesterol Urine Creatinine Hepatitis C Antibody Crossmatch Crossmatch [place] 01/02/18 01/03/18 01/04/18 03:45 12:15 00:25 WBC 13.1 H RBC 3.17 L Hgb 7.5 L Hct 24.8 L MCV 78 L MCH 24 L MCHC 31 L RDW 18.2 H Plt Count Lymph % (Auto) 11.0 L [place] % (Auto) 8.8 H Eos % (Auto) Lymph # [place] # 1.2 H Eos # 0.5 H Baso # 0.2 H Seg Neutrophils % 74.7 H Seg Neuts % (Manual) Lymphocytes % (Manual) Monocytes % (Manual) Eosinophils % (Manual) Nucleated RBC % Seg Neutrophils # 9.8 H Seg Neutrophils # Man Lymphocytes # (Manual) Monocytes # (Manual) Eosinophils # (Manual) PT INR POC ABG pH POC ABG pCO2 POC ABG pO2 Sodium Potassium Chloride Carbon Dioxide BUN Creatinine Glucose POC Glucose 137 H < 40 L Lactic Acid Calcium Phosphorus Magnesium AST ALT Alkaline Phosphatase Troponin T C-Reactive Protein Total Protein Albumin LDL Cholesterol Direct HDL Cholesterol Urine Creatinine Hepatitis C Antibody Crossmatch Crossmatch [place] 01/04/18 01/04/18 01/06/18 04:31 12:52 04:42 WBC 11.1 H 11.8 H RBC 3.18 L 3.05 L Hgb 7.7 L 7.4 L Hct 24.8 L 23.7 L MCV 78 L 78 L MCH 24 L 24 L MCHC 31 L 31 L RDW 18.4 H 18.7 H Plt Count Lymph % (Auto) 9.2 L [place] % (Auto) 7.6 H Eos % (Auto) Lymph # 1.1 L [place] # 0.9 H Eos # 0.5 H Baso # Seg Neutrophils % 78.0 H Seg Neuts % (Manual) Lymphocytes % (Manual) Monocytes % (Manual) Eosinophils % (Manual) Nucleated RBC % Seg Neutrophils # 9.2 H Seg Neutrophils # Man Lymphocytes # (Manual) Monocytes # (Manual) Eosinophils # (Manual) PT INR POC ABG pH POC ABG pCO2 POC ABG pO2 Sodium Potassium Chloride Carbon Dioxide 19 L BUN Creatinine 0.3 L Glucose 47 L POC Glucose Lactic Acid Calcium 8.0 L Phosphorus Magnesium AST ALT Alkaline Phosphatase Troponin T C-Reactive Protein Total Protein Albumin LDL Cholesterol Direct HDL Cholesterol Urine Creatinine Hepatitis C Antibody Crossmatch Crossmatch [place] 01/06/18 04:42 WBC RBC Hgb Hct MCV MCH MCHC RDW Plt Count Lymph % (Auto) [place] % (Auto) Eos % (Auto) Lymph # [place] # Eos # Baso # Seg Neutrophils % Seg Neuts % (Manual) Lymphocytes % (Manual) Monocytes % (Manual) Eosinophils % (Manual) Nucleated RBC % Seg Neutrophils # Seg Neutrophils # Man Lymphocytes # (Manual) Monocytes # (Manual) Eosinophils # (Manual) PT INR POC ABG pH POC ABG pCO2 POC ABG pO2 Sodium 133 L Potassium Chloride Carbon Dioxide 20 L BUN Creatinine 0.3 L Glucose POC Glucose Lactic Acid Calcium 8.0 L Phosphorus Magnesium AST ALT Alkaline Phosphatase Troponin T C-Reactive Protein Total Protein Albumin LDL Cholesterol Direct HDL Cholesterol Urine Creatinine Hepatitis C Antibody Crossmatch Crossmatch [place]
--- NOTE | 2018-01-06 11:50 | Progress Note ---
Assessment and Plan - Patient Problems (1) Gastrostomy malfunction Current Visit: Yes Status: Acute Plan to address problem: Pt is stable. After reviewing the records, discussing the case with multiple attendings, and seeing the patient, it is clear that we do not have an acute perforation. Most likely, the PEG tube started to migrate out of position prior to 11/18 as evidenced by no PEG button seen on EGD and no obvious hole in the stomach. As the contrast is restricted to certain areas in the abdomen, the fluid is loculated. The "ascites" may be tube feeds and/or reactionary fluid. Regardless, patient is not showing signs of obvious peritonitis. In this case, it may be prudent to try placing a few drains in the abdomen to remove that largest collections. I have already discussed this case with Dr. Moreira who agreed to review the case and see if that was possible. The alternative would be to take the patient for an ex-lap and washout the abdomen. I'm concerned that there may be a lot of inflammatory changes in the abdomen which would put him at risk for bowel injuries from the procedure. Therefore, this will be our back-up plan if the drains do not resolve the problem. As for nutritional access , for now, I would recommend an NGT. I doubt he has an active leak, so there is no need to test the stomach prior to using it. I have explained this plan in detail to the daughter (Jannette) and the attendings from ICU, GI, and hospitalist service. All were in agreement. - 11/25/17 Initial Consult Pt appears stable. s/p dx lap and washout - 12/03 POD#34. Pt stable. Lat drain removed today. ODALYS still in place. I think the best option at this point may be to rescan the patient with IV contrast and reassess the abdomen. If the fluid collections and inflammation have resolved, then we may consider asking IR to place a G-J tube. I would leave the remaining drain in place in case there is a leak. I have reached out to the hospitalist to discuss the plan. Would leave surgical incisions open to air. Please call with questions. Will follow along peripherally. Time=10min Subjective Date of service: 01/06/18 Patient Reports: Positive: other (No new events. drain output has been minimal per staff) Objective Vital Signs - 12hr 10/01/06/18 01/06/18 00:00 01:00 02:00 Temperature 99.5 F Pulse Rate 104 H 100 H 99 H Pulse Rate [ Left Dorsalis Pedis] Pulse Rate [ 103 H Right From Monitor] Respiratory 26 H 33 H 30 H Rate Blood Pressure 152/88 149/80 146/82 O2 Sat by Pulse 100 100 100 Oximetry O2 Sat by Pulse Oximetry [ Assessment] 01/06/18 01/06/18 01/06/18 03:00 04:00 05:00 Temperature 99.1 F Pulse Rate 103 H 103 H 106 H Pulse Rate [ Left Dorsalis Pedis] Pulse Rate [ 103 H Right From Monitor] Respiratory 29 H 30 H 27 H Rate Blood Pressure 144/78 150/86 152/81 O2 Sat by Pulse 100 100 100 Oximetry O2 Sat by Pulse Oximetry [ Assessment] 01/06/18 01/06/18 01/06/18 06:00 07:00 08:00 Temperature 98.4 F Pulse Rate 100 H 110 H 107 H Pulse Rate [ 98 H Left Dorsalis Pedis] Pulse Rate [ 95 H Right From Monitor] Respiratory 21 27 H 31 H Rate Blood Pressure 147/89 147/89 153/93 O2 Sat by Pulse 100 100 100 Oximetry O2 Sat by Pulse Oximetry [ Assessment] 01/06/18 01/06/18 01/06/18 08:20 09:00 09:51 Temperature Pulse Rate 106 H 107 H Pulse Rate [ Left Dorsalis Pedis] Pulse Rate [ Right From Monitor] Respiratory 28 H Rate Blood Pressure 147/90 147/90 O2 Sat by Pulse 100 100 Oximetry O2 Sat by Pulse 100 Oximetry [ Assessment] 01/06/18 01/06/18 10:00 11:00 Temperature Pulse Rate 111 H 97 H Pulse Rate [ Left Dorsalis Pedis] Pulse Rate [ Right From Monitor] Respiratory 30 H 30 H Rate Blood Pressure 153/93 164/96 O2 Sat by Pulse 100 100 Oximetry O2 Sat by Pulse Oximetry [ Assessment] - General physical appearance no distress, no pain, other (awake) - Respiratory normal expansion, normal respiratory effort - Abdomen soft, not tender, not distended, not guarding, not rigid, other (lat drain has minimal output. ODALYS drain is starting to thin out. ) - Integumentary no rash, no growths, no abnormal pigmentation - Labs 01/06/18 04:42 01/06/18 04:42 Diabetes panel 01/06/18 Range/Units 04:42 Sodium 133 L (137-145) mmol/L Potassium 4.5 (3.6-5.0) mmol/L Chloride 100.7 (98-107) mmol/L Carbon Dioxide 20 L (22-30) mmol/L BUN 10 (9-20) mg/dL Creatinine 0.3 L (0.8-1.5) mg/dL Glucose 100 (75-100) mg/dL Calcium 8.0 L (8.4-10.2) mg/dL Calcium panel 01/06/18 Range/Units 04:42 Calcium 8.0 L (8.4-10.2) mg/dL Pituitary panel 01/06/18 Range/Units 04:42 Sodium 133 L (137-145) mmol/L Potassium 4.5 (3.6-5.0) mmol/L Chloride 100.7 (98-107) mmol/L Carbon Dioxide 20 L (22-30) mmol/L BUN 10 (9-20) mg/dL Creatinine 0.3 L (0.8-1.5) mg/dL Glucose 100 (75-100) mg/dL Calcium 8.0 L (8.4-10.2) mg/dL Adrenal panel 01/06/18 Range/Units 04:42 Sodium 133 L (137-145) mmol/L Potassium 4.5 (3.6-5.0) mmol/L Chloride 100.7 (98-107) mmol/L Carbon Dioxide 20 L (22-30) mmol/L BUN 10 (9-20) mg/dL Creatinine 0.3 L (0.8-1.5) mg/dL Glucose 100 (75-100) mg/dL Calcium 8.0 L (8.4-10.2) mg/dL
[2018-01-06] MEDS: TRANSDERM-SCOP TD SCH (13:43)
--- NOTE | 2018-01-06 16:23 | Progress Note ---
Assessment and Plan Assessment and plan: Mr. 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 He had a Carotid doppler done that revealed a right ICA 50-79% stenosis. CTA of the neck revealed 80% stenosis of the right ICA with probable 50% stenosis of the origin of the right common carotid artery. His symptoms were thought to be due to the Carotid artery stenosis which was disheartening since he was on Aspirin and plavix. He was scheduled for right CEA but needed Cardiac clearance. He underwent stress test on 10/05/17 and Internal Controls Analyst stated he was stable for non-cardiac history, low to moderate perioperative risk. So, he underwent right carotid enarterectomy on 10/09/17. Following the surgery, he developed recurrent left sided weakness/hemiparesis and was taken back to the OR on 10/10/17 for Open Thrombectomy of Right Internal Carotid Artery and Injection of tPA into the Artery. CT head obtained 2 days after surgery on 10/12 showed massive right cerebral hemisphere acute CVA with midline shift. He was subsequently discharged on 11/10/17 to [facility] but returned to [facility] ED and was re-admitted on 11/12/17 for suspected sepsis due to Aspiration post-obstructive pneumonia with suspected mucus plug and subsequently intubated on admission. On 11/20/17, patient went for Tracheostomy by Dr. Hughes, ENT. Then on 11/21/17 patient went into shock, most likely sepsis as WBC went up to 38.2k; initially thought to be due worsening aspiration pneumonia but it was discovered that he had a dislodged PEG tube from the Nursing, most likely present on admission, which lead to the shock from severe intra-abdominal infection/ peritonitis requiring IR drainage and General surgery drainage. Assessment and plan --Peritonitis: from dislodged peg tube s/pcomplete course of antibiotics, Multiple surgical procedures with intra- abdominal drainage placement IR and surgery evaluated the patient, Continue current management, awaiting for wound healing Possible new peg placement when output of the drains, improved and clears, discussed his surgeon today --Acute hypoxic respiratory failure; requiring mechanical ventilation more than 96% Status post tracheostomy, continue trach care, nebulizers, oxygen --Aspiration pneumonia; received complete treatment, resolved --Acute kidney injury; secondary to ATN Requiring intermittent dialysis as needed --Chronic anemia; received total 3 units of PRBC, closely monitor H&H transfuse as needed --Hypernatremia/hypokalemia/hypomagnesemia; Closely monitor electrolytes and adjust as needed --History of carotid endarterectomy; supportive care --Metabolic encephalopathy; with left sided neglect. supportive care --Severe malnutrition; nutrition supplements and feeding --DVT prophylaxis; SCDs --Full CODE STATUS Patient is critically ill, recommend hospice Consults and recommendations noted DC planning per case management LTAC declined admission KILEY is daughter, Eugenie [phone], ct abd/pelvis ordered History Interval history: Patient was seen and examined. Still not following commands. appears sedated Hospitalist Physical - Physical exam Narrative exam: General appearance: Present: no acute distress, cachectic, disheveled, other ( tracheostomy on T piece) - EENT Eyes: Present: PERRL, EOM intact - Neck Neck: Present: supple, other (tracheostomy on T piece) - Respiratory Respiratory effort: normal Respiratory: bilateral: diminished, rhonchi, negative: wheezing - Cardiovascular Rhythm: regular Heart Sounds: Present: S1 & S2 - Extremities Extremities: no ischemia Extremity abnormal: edema - Abdominal General gastrointestinal: soft, non-tender, non-distended, other (drainage tube in place with collection of fluid) - Integumentary Integumentary: Present: clear, warm - Psychiatric Psychiatric: other (unresponsive) - Neurologic Neurologic: other (noncommunicative) - Constitutional Vitals: Temp Pulse Resp BP Pulse Ox 98.3 F 105 H 28 H 148/84 100 01/06/18 13:00 01/06/18 15:00 01/06/18 15:00 01/06/18 15:00 01/06/18 15:00 General appearance: Present: no acute distress, cachectic, disheveled, other ( tracheostomy on T piece) Results - Labs CBC & Chem 7: 01/08/18 04:12 01/08/18 04:12 Labs: Laboratory Last Values WBC 11.8 K/mm3 (4.5-11.0) H 01/06/18 04:42 RBC 3.05 M/mm3 (3.65-5.03) L 01/06/18 04:42 Hgb 7.4 gm/dl (11.8-15.2) L 01/06/18 04:42 Hct 23.7 % (35.5-45.6) L 01/06/18 04:42 MCV 78 fl (84-94) L 01/06/18 04:42 MCH 24 pg (28-32) L 01/06/18 04:42 MCHC 31 % (32-34) L 01/06/18 04:42 RDW 18.7 % (13.2-15.2) H 01/06/18 04:42 Plt Count 199 K/mm3 (140-440) 01/06/18 04:42 Lymph % (Auto) 9.2 % (13.4-35.0) L 01/06/18 04:42 [place] % (Auto) 7.6 % (0.0-7.3) H 01/06/18 04:42 Eos % (Auto) 4.0 % (0.0-4.3) 01/06/18 04:42 Baso % (Auto) 1.2 % (0.0-1.8) 01/06/18 04:42 Lymph # 1.1 K/mm3 (1.2-5.4) L 01/06/18 04:42 [place] # 0.9 K/mm3 (0.0-0.8) H 01/06/18 04:42 Eos # 0.5 K/mm3 (0.0-0.4) H 01/06/18 04:42 Baso # 0.1 K/mm3 (0.0-0.1) 01/06/18 04:42 Add Manual Diff Complete 01/01/18 04:26 Total Counted 100 01/01/18 04:26 Seg Neutrophils % 78.0 % (40.0-70.0) H 01/06/18 04:42 Seg Neuts % (Manual) 72.0 % (40.0-70.0) H 01/01/18 04:26 Band Neutrophils % 0 % 01/01/18 04:26 Lymphocytes % (Manual) 13.0 % (13.4-35.0) L 01/01/18 04:26 Reactive Lymphs % (Man) 0 % 01/01/18 04:26 Monocytes % (Manual) 7.0 % (0.0-7.3) 01/01/18 04:26 Eosinophils % (Manual) 7.0 % (0.0-4.3) H 01/01/18 04:26 Basophils % (Manual) 1.0 % (0.0-1.8) 01/01/18 04:26 Metamyelocytes % 0 % 01/01/18 04:26 Myelocytes % 0 % 01/01/18 04:26 Promyelocytes % 0 % 01/01/18 04:26 Blast Cells % 0 % 01/01/18 04:26 Nucleated RBC % 1.0 % (0.0-0.9) H 01/01/18 04:26 Seg Neutrophils # 9.2 K/mm3 (1.8-7.7) H 01/06/18 04:42 Seg Neutrophils # Man 7.5 K/mm3 (1.8-7.7) 01/01/18 04:26 Band Neutrophils # 0.0 K/mm3 01/01/18 04:26 Lymphocytes # (Manual) 1.4 K/mm3 (1.2-5.4) 01/01/18 04:26 Abs React Lymphs (Man) 0.0 K/mm3 01/01/18 04:26 Monocytes # (Manual) 0.7 K/mm3 (0.0-0.8) 01/01/18 04:26 Eosinophils # (Manual) 0.7 K/mm3 (0.0-0.4) H 01/01/18 04:26 Basophils # (Manual) 0.1 K/mm3 (0.0-0.1) 01/01/18 04:26 Metamyelocytes # 0.0 K/mm3 01/01/18 04:26 Myelocytes # 0.0 K/mm3 01/01/18 04:26 Promyelocytes # 0.0 K/mm3 01/01/18 04:26 Blast Cells # 0.0 K/mm3 01/01/18 04:26 WBC Morphology Not Reportable 01/01/18 04:26 Hypersegmented Neuts Not Reportable 01/01/18 04:26 Hyposegmented Neuts Not Reportable 01/01/18 04:26 Hypogranular Neuts Not Reportable 01/01/18 04:26 Smudge Cells Not Reportable 01/01/18 04:26 Toxic Granulation Not Reportable 01/01/18 04:26 Toxic Vacuolation Not Reportable 01/01/18 04:26 Dohle Bodies Not Reportable 01/01/18 04:26 Pelger-Huet Anomaly Not Reportable 01/01/18 04:26 Evangelina Rods Not Reportable 01/01/18 04:26 Platelet Estimate Consistent w auto 01/01/18 04:26 Clumped Platelets Not Reportable 01/01/18 04:26 Plt Clumps, EDTA Not Reportable 01/01/18 04:26 Large Platelets Not Reportable 01/01/18 04:26 Giant Platelets Not Reportable 01/01/18 04:26 Platelet Satelliting Not Reportable 01/01/18 04:26 Plt Morphology Comment Not Reportable 01/01/18 04:26 RBC Morphology Not Reportable 01/01/18 04:26 Dimorphic RBCs Not Reportable 01/01/18 04:26 Polychromasia Not Reportable 01/01/18 04:26 Hypochromasia Not Reportable 01/01/18 04:26 Poikilocytosis Not Reportable 01/01/18 04:26 Anisocytosis 1+ 01/01/18 04:26 Microcytosis Not Reportable 01/01/18 04:26 Macrocytosis Not Reportable 01/01/18 04:26 Spherocytes Not Reportable 01/01/18 04:26 Pappenheimer Bodies Not Reportable 01/01/18 04:26 Sickle Cells Not Reportable 01/01/18 04:26 Target Cells Not Reportable 01/01/18 04:26 Tear Drop Cells Not Reportable 01/01/18 04:26 Ovalocytes Not Reportable 01/01/18 04:26 Stomatocytes Few 01/01/18 04:26 Helmet Cells Not Reportable 01/01/18 04:26 Dukes-Cusick Bodies Not Reportable 01/01/18 04:26 Halsey Rings Not Reportable 01/01/18 04:26 Montgomery Cells Not Reportable 01/01/18 04:26 Bite Cells Not Reportable 01/01/18 04:26 Crenated Cell Not Reportable 01/01/18 04:26 Elliptocytes Not Reportable 01/01/18 04:26 Acanthocytes (Spur) Not Reportable 01/01/18 04:26 Rouleaux Not Reportable 01/01/18 04:26 Hemoglobin C Crystals Not Reportable 01/01/18 04:26 Schistocytes Not Reportable 01/01/18 04:26 Malaria parasites Not Reportable 01/01/18 04:26 Santo Bodies Not Reportable 01/01/18 04:26 Hem Pathologist Commnt No 01/01/18 04:26 PT 15.4 Sec. (12.2-14.9) H 12/14/17 05:11 INR 1.17 (0.87-1.13) H 12/14/17 05:11 APTT 33.8 Sec. (24.2-36.6) 11/26/17 06:29 POC ABG pH 7.505 (7.35-7.45) H 11/23/17 04:56 POC ABG pCO2 26.3 (35-45) L 11/23/17 04:56 POC ABG pO2 100 (80-105) 11/23/17 04:56 POC ABG HCO3 20.8 11/23/17 04:56 POC ABG Total CO2 22 11/23/17 04:56 POC ABG O2 Sat 98 11/23/17 04:56 POC ABG Base Excess -2 11/23/17 04:56 FiO2 30 % 11/23/17 04:56 Sodium 133 mmol/L (137-145) L 01/06/18 04:42 Potassium 4.5 mmol/L (3.6-5.0) 01/06/18 04:42 Chloride 100.7 mmol/L (98-107) 01/06/18 04:42 Carbon Dioxide 20 mmol/L (22-30) L 01/06/18 04:42 Anion Gap 17 mmol/L 01/06/18 04:42 BUN 10 mg/dL (9-20) 01/06/18 04:42 Creatinine 0.3 mg/dL (0.8-1.5) L 01/06/18 04:42 Estimated GFR > 60 ml/min 01/06/18 04:42 BUN/Creatinine Ratio 33 % 01/06/18 04:42 Glucose 100 mg/dL (75-100) 01/06/18 04:42 POC Glucose 103 (70-105) 01/06/18 12:15 Lactic Acid 1.80 mmol/L (0.7-2.0) 11/27/17 04:06 Calcium 8.0 mg/dL (8.4-10.2) L 01/06/18 04:42 Phosphorus 3.40 mg/dL (2.5-4.5) 01/02/18 03:45 Magnesium 1.70 mg/dL (1.7-2.3) 01/02/18 03:45 Total Bilirubin 0.30 mg/dL (0.1-1.2) 12/30/17 04:46 AST 37 units/L (5-40) 12/30/17 04:46 ALT 48 units/L (7-56) 12/30/17 04:46 Alkaline Phosphatase 288 units/L (35-129) H 12/30/17 04:46 Total Creatine Kinase 84 units/L (55-170) 11/12/17 20:03 CK-MB (CK-2) < 1.0 ng/mL (0.0-4.0) 11/12/17 20:03 CK-MB (CK-2) Rel Index 1.1 (0-4) 11/12/17 20:03 Troponin T 0.098 ng/mL (0.00-0.029) H 11/12/17 Unknown C-Reactive Protein 25.70 mg/dL (0.00-1.30) H 11/11/17 23:20 NT-Pro-B Natriuret Pep 792.4 pg/mL (0-900) 11/11/17 23:20 Total Protein 6.6 g/dL (6.3-8.2) 12/30/17 04:46 Albumin 2.4 g/dL (3.9-5) L 12/30/17 04:46 Albumin/Globulin Ratio 0.6 % 12/30/17 04:46 Triglycerides 86 mg/dL (2-149) 11/11/17 23:20 Cholesterol 82 mg/dL (50-199) 11/11/17 23:20 LDL Cholesterol Direct 42 mg/dL (50-130) L 11/11/17 23:20 HDL Cholesterol 24 mg/dL (40-59) L 11/11/17 23:20 Cholesterol/HDL Ratio 3.41 % 11/11/17 23:20 Lipase 30 units/L (13-60) 11/11/17 23:20 Urine Color Nicole (Yellow) 11/11/17 23:09 Urine Turbidity Cloudy (Clear) 11/11/17 23:09 Urine pH 5.0 (5.0-7.0) 11/11/17 23:09 Ur Specific Combined [place] 1.025 (1.003-1.030) 11/11/17 23:09 Urine Protein 100 mg/dl mg/dL (Negative) 11/11/17 23:09 Urine Glucose (UA) 50 mg/dL (Negative) 11/11/17 23:09 Urine Ketones Neg mg/dL (Negative) 11/11/17 23:09 Urine Blood Neg (Negative) 11/11/17 23:09 Urine Nitrite Neg (Negative) 11/11/17 23:09 Urine Bilirubin Neg (Negative) 11/11/17 23:09 Urine Urobilinogen 4.0 mg/dL (<2.0) 11/11/17 23:09 Ur Leukocyte Esterase Neg (Negative) 11/11/17 23:09 Urine WBC (Auto) 5.0 /HPF (0.0-6.0) 11/11/17 23:09 Urine RBC (Auto) 4.0 /HPF (0.0-6.0) 11/11/17 23:09 Urine Bacteria (Auto) 3+ /HPF (Negative) 11/11/17 23:09 Amorphous Crystals 3+ 11/11/17 23:09 Hyaline Casts 76 /LPF 11/11/17 23:09 Urine Mucus 2+ /HPF 11/11/17 23:09 Urine Total Volume 1350 12/22/17 10:50 Urine Creatinine 55.8 mg/dL (0.1-20.0) H 12/22/17 10:50 Ur Creatinine 24 Hour 0.8 (0.8-2.8) 12/22/17 10:50 Hepatitis A IgM Ab Non-reactive (NonReactive) 11/22/17 19:45 Hep Bs Antigen Non-reactive (Negative) 11/22/17 19:45 Hep B Core IgM Ab Non-reactive (NonReactive) 11/22/17 19:45 Hepatitis C Antibody Reactive (NonReactive) A 11/22/17 19:45 Blood Type A POSITIVE 12/16/17 13:01 Antibody Screen Positive 09/26/18 13:01 SANATNA Antibody Screen Cancelled 12/16/17 13:01 Antibody Identification Cold Antibody 12/16/17 13:01 Crossmatch See Detail 12/16/17 13:01 Crossmatch Prewarmed See Detail 12/16/17 13:01
--- NOTE | 2018-01-06 22:35 | Cat Scan Report ---
FINAL REPORT EXAM: CT ABDOMEN PELVIS W CON HISTORY: abdominal abcess TECHNIQUE: Following oral administration of GI contrast and IV administration of 100 cc of Omnipaque 300 axial helical imaging was performed through the abdomen and pelvis with sagittal and coronal reformatted images obtained. Delayed axial helical imaging was also performed through the abdomen and pelvis. Comparison: CT abdomen and pelvis dated December 04, 2017 FINDINGS: There are small to moderate-sized bilateral pleural fluid collections in the lung bases the with associated compressive atelectasis in the adjacent lung. The heart appears to be enlarged. The liver, spleen, pancreas and kidneys are unremarkable in appearance. The bowel is normal caliber. GI contrast is demonstrated to transit through the small bowel and colon to the rectum. Again noted is the large perirectal fluid collection with marginal enhancement that result in compression of the rectum. This contains small collections of air is consistent with an abscess. Again noted are the numerous intra-abdominal fluid collections with marginal enhancement consistent with abscesses. The largest is in the pelvis and extends anteriorly and laterally bilaterally deep to the abdominal wall. The largest portion of this collection in the pelvis measures approximately 10 centimeters by 11 centimeters by 5.2 centimeters in size. The portion of this collection that extends anteriorly and superiorly deep to the abdominal wall on the right measures approximately the 15 centimeters by 4.4 centimeters by 4.8 centimeters in size. The portion of this collection that extends anteriorly and superiorly deep to the abdominal wall on the left measures approximately 16 centimeters by 4.6 centimeters by 4.3 centimeters. There is a collection in the lesser sac that measures approximately 9.4 centimeters by 4.2 centimeters by 4.2 centimeters. There is a small perisplenic collection. Additionally there are smaller loculated collections in the anterior abdomen. The abdominal aorta is normal caliber. The urinary bladder is moderately distended and unremarkable in appearance. The bony structures are notable for spondylitic change of the lumbar spine. IMPRESSION: 1. Repeat demonstration of multiple intra-abdominal and perirectal abscesses. The intra-abdominal abscesses appear to be smaller in size. The perirectal abscess may be increased in size in the interval. 2. Persistent moderate-sized bilateral pleural fluid collections. 3. Otherwise no significant interval change since previous study dated December 04, 2017.
--- NOTE | 2018-01-07 08:42 | Progress Note ---
Assessment and Plan s/p Acute respiratory failure. More coarse secretions this morning. Needs suctioning Trach. patient Sepsis,post PEG related spillage or peritonitis. Loculations still seen on f/u Abd CT. No fever.Surgery following Stroke ESRD s/p carotid endarterectomy Recommendations Continue with nebs and suction given Further interventions per surgery,IR Nephrology follow-up Nutritional support. Physical therapy DVT prophylaxis Discussed with staff. No family at the bedside Subjective Date of service: 01/07/18 Principal diagnosis: Acute hypoxic respiratory failure, s/p Trach,peritoneal leak,loculations Interval history: asleep, eyes open when called Objective Vital Signs - 12hr 01/06/18 01/06/18 01/06/18 21:37 22:00 22:01 Temperature Pulse Rate 98 H 102 H Pulse Rate [ Right From Monitor] Respiratory 25 H Rate Blood Pressure 166/93 O2 Sat by Pulse 98 96 100 Oximetry O2 Sat by Pulse Oximetry [ Assessment] 01/06/18 01/06/18 01/06/18 22:10 22:47 23:00 Temperature Pulse Rate 103 H 96 H 96 H Pulse Rate [ Right From Monitor] Respiratory 28 H 25 H Rate Blood Pressure 177/93 177/93 146/89 O2 Sat by Pulse 100 100 Oximetry O2 Sat by Pulse Oximetry [ Assessment] 01/07/18 01/07/18 01/07/18 00:00 00:01 01:00 Temperature 96.8 F L Pulse Rate 103 H 104 H Pulse Rate [ 100 H Right From Monitor] Respiratory 21 32 H 24 Rate Blood Pressure 164/102 152/89 O2 Sat by Pulse 100 100 100 Oximetry O2 Sat by Pulse 96 Oximetry [ Assessment] 01/07/18 01/07/18 01/07/18 02:00 03:00 03:56 Temperature 98.9 F Pulse Rate 108 H 113 H Pulse Rate [ Right From Monitor] Respiratory 33 H 21 Rate Blood Pressure 152/89 128/84 O2 Sat by Pulse 98 Oximetry O2 Sat by Pulse Oximetry [ Assessment] 01/07/18 01/07/18 01/07/18 03:59 04:00 04:01 Temperature Pulse Rate 113 H Pulse Rate [ 115 H Right From Monitor] Respiratory 30 H 22 Rate Blood Pressure 134/86 O2 Sat by Pulse 100 100 Oximetry O2 Sat by Pulse 100 Oximetry [ Assessment] 01/07/18 01/07/18 01/07/18 05:01 06:00 07:01 Temperature Pulse Rate 116 H 112 H 116 H Pulse Rate [ Right From Monitor] Respiratory 26 H 29 H 26 H Rate Blood Pressure 142/97 152/91 158/94 O2 Sat by Pulse 99 100 Oximetry O2 Sat by Pulse Oximetry [ Assessment] 01/07/18 08:00 Temperature 97.8 F Pulse Rate 110 H Pulse Rate [ Right From Monitor] Respiratory 32 H Rate Blood Pressure 148/88 O2 Sat by Pulse Oximetry O2 Sat by Pulse Oximetry [ Assessment] Constitutional: no acute distress, lethargic Eyes: non-icteric ENT: oropharynx moist, other (trach in position, no bleeding) Neck: no JVD Effort: normal Ascultation: Bilateral: clear, diminished breath sounds, rales (few bilaterally) Cardiovascular: regular rate and rhythm Gastrointestinal: normoactive bowel sounds, soft, non-tender, other (drains) Integumentary: normal Extremities: no cyanosis, pink and warm, no ischemia or petechiae Neurologic: other (L hemiparesis, ) Psychiatric: other (unable to assess) CBC and BMP: 01/06/18 04:42 01/06/18 04:42 ABG, PT/INR, D-dimer: ABG POC ABG pH 7.505 (7.35-7.45) H 11/23/17 04:56 POC ABG pCO2 26.3 (35-45) L 11/23/17 04:56 POC ABG pO2 100 (80-105) 11/23/17 04:56 POC ABG HCO3 20.8 11/23/17 04:56 POC ABG Total CO2 22 11/23/17 04:56 POC ABG O2 Sat 98 11/23/17 04:56 PT/INR, D-dimer PT 15.4 Sec. (12.2-14.9) H 12/14/17 05:11 INR 1.17 (0.87-1.13) H 12/14/17 05:11 Abnormal lab findings: Abnormal Labs 11/11/17 11/11/17 11/11/17 23:18 23:20 23:20 WBC RBC Hgb 10.4 L Hct 32.6 L D MCV MCH 27 L MCHC RDW 17.4 H Plt Count 105 L Lymph % (Auto) [place] % (Auto) Eos % (Auto) Lymph # [place] # Eos # Baso # Seg Neutrophils % Seg Neuts % (Manual) Lymphocytes % (Manual) 8.0 L Monocytes % (Manual) Eosinophils % (Manual) Nucleated RBC % 1.0 H Seg Neutrophils # Seg Neutrophils # Man Lymphocytes # (Manual) 0.7 L Monocytes # (Manual) Eosinophils # (Manual) PT INR POC ABG pH 7.550 H POC ABG pCO2 31.6 L POC ABG pO2 Sodium 146 H Potassium Chloride Carbon Dioxide BUN 26 H Creatinine 1.7 H D Glucose 133 H POC Glucose Lactic Acid Calcium Phosphorus Magnesium AST ALT Alkaline Phosphatase Troponin T 0.117 H* C-Reactive Protein Total Protein Albumin 2.5 L LDL Cholesterol Direct 42 L HDL Cholesterol 24 L Urine Creatinine Hepatitis C Antibody Crossmatch Crossmatch [place]armed 11/11/17 11/12/17 11/12/17 23:20 00:23 00:23 WBC RBC Hgb Hct MCV MCH MCHC RDW Plt Count Lymph % (Auto) [place] % (Auto) Eos % (Auto) Lymph # [place] # Eos # Baso # Seg Neutrophils % Seg Neuts % (Manual) Lymphocytes % (Manual) Monocytes % (Manual) Eosinophils % (Manual) Nucleated RBC % Seg Neutrophils # Seg Neutrophils # Man Lymphocytes # (Manual) Monocytes # (Manual) Eosinophils # (Manual) PT 16.7 H INR 1.28 H POC ABG pH POC ABG pCO2 POC ABG pO2 Sodium Potassium Chloride Carbon Dioxide BUN Creatinine Glucose POC Glucose Lactic Acid 3.20 H* Calcium Phosphorus Magnesium AST ALT Alkaline Phosphatase Troponin T C-Reactive Protein 25.70 H Total Protein Albumin LDL Cholesterol Direct HDL Cholesterol Urine Creatinine Hepatitis C Antibody Crossmatch Crossmatch [place]armed 11/12/17 11/12/17 11/12/17 00:46 01:27 01:27 WBC RBC Hgb Hct MCV MCH MCHC RDW Plt Count Lymph % (Auto) [place] % (Auto) Eos % (Auto) Lymph # [place] # Eos # Baso # Seg Neutrophils % Seg Neuts % (Manual) Lymphocytes % (Manual) Monocytes % (Manual) Eosinophils % (Manual) Nucleated RBC % Seg Neutrophils # Seg Neutrophils # Man Lymphocytes # (Manual) Monocytes # (Manual) Eosinophils # (Manual) PT INR POC ABG pH 7.495 H POC ABG pCO2 32.0 L POC ABG pO2 64 L Sodium Potassium Chloride Carbon Dioxide BUN Creatinine Glucose POC Glucose Lactic Acid 3.70 H* Calcium Phosphorus Magnesium AST ALT Alkaline Phosphatase Troponin T 0.096 H C-Reactive Protein Total Protein Albumin LDL Cholesterol Direct HDL Cholesterol Urine Creatinine Hepatitis C Antibody Crossmatch Crossmatch [place]armed 11/12/17 11/12/17 11/12/17 03:21 04:50 06:27 WBC RBC Hgb Hct MCV MCH MCHC RDW Plt Count Lymph % (Auto) [place] % (Auto) Eos % (Auto) Lymph # [place] # Eos # Baso # Seg Neutrophils % Seg Neuts % (Manual) Lymphocytes % (Manual) Monocytes % (Manual) Eosinophils % (Manual) Nucleated RBC % Seg Neutrophils # Seg Neutrophils # Man Lymphocytes # (Manual) Monocytes # (Manual) Eosinophils # (Manual) PT INR POC ABG pH POC ABG pCO2 POC ABG pO2 109 H Sodium Potassium Chloride Carbon Dioxide BUN Creatinine Glucose POC Glucose Lactic Acid 3.80 H* 2.20 H* Calcium Phosphorus Magnesium AST ALT Alkaline Phosphatase Troponin T C-Reactive Protein Total Protein Albumin LDL Cholesterol Direct HDL Cholesterol Urine Creatinine Hepatitis C Antibody Crossmatch Crossmatch [place] 11/12/17 11/12/17 11/12/17 09:24 09:24 09:24 WBC RBC Hgb 10.4 L Hct 33.4 L MCV MCH MCHC RDW Plt Count Lymph % (Auto) [place] % (Auto) Eos % (Auto) Lymph # [place] # Eos # Baso # Seg Neutrophils % Seg Neuts % (Manual) Lymphocytes % (Manual) Monocytes % (Manual) Eosinophils % (Manual) Nucleated RBC % Seg Neutrophils # Seg Neutrophils # Man Lymphocytes # (Manual) Monocytes # (Manual) Eosinophils # (Manual) PT INR POC ABG pH POC ABG pCO2 POC ABG pO2 Sodium Potassium Chloride Carbon Dioxide BUN Creatinine Glucose POC Glucose Lactic Acid 2.90 H* Calcium Phosphorus Magnesium AST ALT Alkaline Phosphatase Troponin T 0.091 H C-Reactive Protein Total Protein Albumin LDL Cholesterol Direct HDL Cholesterol Urine Creatinine Hepatitis C Antibody Crossmatch Crossmatch [place] 11/12/17 11/12/17 11/12/17 12:56 20:03 Unknown WBC RBC Hgb Hct MCV MCH MCHC RDW Plt Count Lymph % (Auto) [place] % (Auto) Eos % (Auto) Lymph # [place] # Eos # Baso # Seg Neutrophils % Seg Neuts % (Manual) Lymphocytes % (Manual) Monocytes % (Manual) Eosinophils % (Manual) Nucleated RBC % Seg Neutrophils # Seg Neutrophils # Man Lymphocytes # (Manual) Monocytes # (Manual) Eosinophils # (Manual) PT INR POC ABG pH POC ABG pCO2 POC ABG pO2 Sodium Potassium Chloride Carbon Dioxide BUN Creatinine Glucose POC Glucose Lactic Acid 3.60 H* Calcium Phosphorus Magnesium AST ALT Alkaline Phosphatase Troponin T 0.102 H* 0.156 H* D C-Reactive Protein Total Protein Albumin LDL Cholesterol Direct HDL Cholesterol Urine Creatinine Hepatitis C Antibody Crossmatch Crossmatch [place] 11/12/17 11/13/17 11/13/17 Unknown 04:50 04:50 WBC 12.2 H RBC 3.51 L Hgb 9.3 L Hct 30.1 L MCV MCH 26 L MCHC 31 L RDW 18.0 H Plt Count 128 L Lymph % (Auto) 8.6 L [place] % (Auto) 11.1 H Eos % (Auto) Lymph # 1.1 L [place] # 1.4 H Eos # Baso # Seg Neutrophils % 80.1 H Seg Neuts % (Manual) Lymphocytes % (Manual) Monocytes % (Manual) Eosinophils % (Manual) Nucleated RBC % Seg Neutrophils # 9.8 H Seg Neutrophils # Man Lymphocytes # (Manual) Monocytes # (Manual) Eosinophils # (Manual) PT INR POC ABG pH POC ABG pCO2 POC ABG pO2 Sodium 149 H Potassium 5.1 H Chloride 114.4 H Carbon Dioxide 18 L BUN 52 H Creatinine 3.3 H D Glucose 129 H POC Glucose Lactic Acid Calcium 7.9 L Phosphorus Magnesium AST ALT Alkaline Phosphatase Troponin T 0.098 H C-Reactive Protein Total Protein Albumin LDL Cholesterol Direct HDL Cholesterol Urine Creatinine Hepatitis C Antibody Crossmatch Crossmatch [place] 11/13/17 11/13/17 11/14/17 04:51 09:34 04:21 WBC RBC Hgb Hct MCV MCH MCHC RDW Plt Count Lymph % (Auto) [place] % (Auto) Eos % (Auto) Lymph # [place] # Eos # Baso # Seg Neutrophils % Seg Neuts % (Manual) Lymphocytes % (Manual) Monocytes % (Manual) Eosinophils % (Manual) Nucleated RBC % Seg Neutrophils # Seg Neutrophils # Man Lymphocytes # (Manual) Monocytes # (Manual) Eosinophils # (Manual) PT INR POC ABG pH POC ABG pCO2 30.1 L 29.8 L POC ABG pO2 135 H Sodium Potassium Chloride Carbon Dioxide BUN Creatinine Glucose POC Glucose Lactic Acid 2.10 H* Calcium Phosphorus Magnesium AST ALT Alkaline Phosphatase Troponin T C-Reactive Protein Total Protein Albumin LDL Cholesterol Direct HDL Cholesterol Urine Creatinine Hepatitis C Antibody Crossmatch Crossmatch [place]armed 11/15/17 11/15/17 11/16/17 04:52 15:50 05:17 WBC RBC Hgb Hct MCV MCH MCHC RDW Plt Count Lymph % (Auto) [place] % (Auto) Eos % (Auto) Lymph # [place] # Eos # Baso # Seg Neutrophils % Seg Neuts % (Manual) Lymphocytes % (Manual) Monocytes % (Manual) Eosinophils % (Manual) Nucleated RBC % Seg Neutrophils # Seg Neutrophils # Man Lymphocytes # (Manual) Monocytes # (Manual) Eosinophils # (Manual) PT INR POC ABG pH POC ABG pCO2 29.5 L 31.5 L POC ABG pO2 115 H 122 H Sodium 154 H Potassium Chloride 117.9 H Carbon Dioxide 19 L BUN 87 H Creatinine 4.1 H Glucose POC Glucose Lactic Acid Calcium 8.1 L Phosphorus Magnesium AST ALT Alkaline Phosphatase Troponin T C-Reactive Protein Total Protein Albumin LDL Cholesterol Direct HDL Cholesterol Urine Creatinine Hepatitis C Antibody Crossmatch Crossmatch [place] 11/16/17 11/17/17 11/17/17 16:37 04:07 10:00 WBC 14.7 H RBC 3.23 L Hgb 8.3 L Hct 28.1 L MCV MCH 26 L MCHC 30 L RDW 18.8 H Plt Count Lymph % (Auto) [place] % (Auto) Eos % (Auto) Lymph # [place] # Eos # Baso # Seg Neutrophils % Seg Neuts % (Manual) 75 H Lymphocytes % (Manual) 8.0 L Monocytes % (Manual) Eosinophils % (Manual) Nucleated RBC % 1.0 H Seg Neutrophils # Seg Neutrophils # Man 11.0 H Lymphocytes # (Manual) Monocytes # (Manual) 0.9 H Eosinophils # (Manual) PT INR POC ABG pH POC ABG pCO2 POC ABG pO2 Sodium 153 H 155 H Potassium Chloride 117.3 H 119.4 H Carbon Dioxide 19 L 20 L BUN 90 H 89 H Creatinine 3.9 H 3.6 H Glucose 111 H 115 H POC Glucose Lactic Acid Calcium 8.1 L 8.0 L Phosphorus Magnesium AST ALT Alkaline Phosphatase Troponin T C-Reactive Protein Total Protein Albumin LDL Cholesterol Direct HDL Cholesterol Urine Creatinine Hepatitis C Antibody Crossmatch Crossmatch [place] 11/18/17 11/18/17 11/18/17 04:34 04:34 04:34 WBC 15.5 H RBC 3.13 L Hgb 8.1 L Hct 26.3 L MCV MCH 26 L MCHC 31 L RDW 18.6 H Plt Count Lymph % (Auto) [place] % (Auto) Eos % (Auto) Lymph # [place] # Eos # Baso # Seg Neutrophils % Seg Neuts % (Manual) 81.0 H Lymphocytes % (Manual) 7.0 L Monocytes % (Manual) Eosinophils % (Manual) Nucleated RBC % 1.0 H Seg Neutrophils # Seg Neutrophils # Man 12.6 H Lymphocytes # (Manual) 1.1 L Monocytes # (Manual) Eosinophils # (Manual) PT 16.7 H INR 1.30 H POC ABG pH POC ABG pCO2 POC ABG pO2 Sodium 155 H Potassium 3.2 L Chloride 121.0 H Carbon Dioxide 20 L BUN 74 H Creatinine 2.9 H Glucose 126 H POC Glucose Lactic Acid Calcium 7.9 L Phosphorus Magnesium AST ALT Alkaline Phosphatase Troponin T C-Reactive Protein Total Protein Albumin LDL Cholesterol Direct HDL Cholesterol Urine Creatinine Hepatitis C Antibody Crossmatch Crossmatch [place] 11/19/17 11/19/17 11/20/17 04:44 04:44 00:38 WBC 19.0 H 22.2 H RBC 3.20 L 3.17 L Hgb 8.4 L 7.9 L Hct 27.9 L 26.4 L MCV 83 L MCH 26 L 25 L MCHC 30 L 30 L RDW 19.1 H 18.9 H Plt Count Lymph % (Auto) [place] % (Auto) Eos % (Auto) Lymph # [place] # Eos # Baso # Seg Neutrophils % Seg Neuts % (Manual) 83.0 H Lymphocytes % (Manual) 3.0 L Monocytes % (Manual) 9.0 H Eosinophils % (Manual) Nucleated RBC % Seg Neutrophils # Seg Neutrophils # Man 18.4 H Lymphocytes # (Manual) 0.7 L Monocytes # (Manual) 2.0 H Eosinophils # (Manual) PT INR POC ABG pH POC ABG pCO2 POC ABG pO2 Sodium 152 H Potassium Chloride 117.1 H Carbon Dioxide 17 L BUN 66 H Creatinine 2.8 H Glucose 119 H POC Glucose Lactic Acid Calcium 7.8 L Phosphorus Magnesium 2.70 H AST ALT Alkaline Phosphatase Troponin T C-Reactive Protein Total Protein Albumin LDL Cholesterol Direct HDL Cholesterol Urine Creatinine Hepatitis C Antibody Crossmatch Crossmatch [place] 11/20/17 11/20/17 11/20/17 03:29 04:48 13:38 WBC RBC Hgb Hct MCV MCH MCHC RDW Plt Count Lymph % (Auto) [place] % (Auto) Eos % (Auto) Lymph # [place] # Eos # Baso # Seg Neutrophils % Seg Neuts % (Manual) Lymphocytes % (Manual) Monocytes % (Manual) Eosinophils % (Manual) Nucleated RBC % Seg Neutrophils # Seg Neutrophils # Man Lymphocytes # (Manual) Monocytes # (Manual) Eosinophils # (Manual) PT INR POC ABG pH POC ABG pCO2 29.4 L POC ABG pO2 Sodium 148 H Potassium 3.4 L Chloride 113.7 H Carbon Dioxide 18 L BUN 59 H Creatinine 2.7 H Glucose 113 H POC Glucose 128 H Lactic Acid Calcium 7.8 L Phosphorus Magnesium AST ALT Alkaline Phosphatase Troponin T C-Reactive Protein Total Protein Albumin LDL Cholesterol Direct HDL Cholesterol Urine Creatinine Hepatitis C Antibody Crossmatch Crossmatch [place] 11/20/17 11/20/17 11/21/17 17:38 23:40 00:13 WBC RBC Hgb 8.4 L Hct 28.0 L MCV MCH MCHC RDW Plt Count Lymph % (Auto) [place] % (Auto) Eos % (Auto) Lymph # [place] # Eos # Baso # Seg Neutrophils % Seg Neuts % (Manual) Lymphocytes % (Manual) Monocytes % (Manual) Eosinophils % (Manual) Nucleated RBC % Seg Neutrophils # Seg Neutrophils # Man Lymphocytes # (Manual) Monocytes # (Manual) Eosinophils # (Manual) PT INR POC ABG pH POC ABG pCO2 POC ABG pO2 Sodium Potassium Chloride Carbon Dioxide BUN Creatinine Glucose POC Glucose 115 H 145 H Lactic Acid Calcium Phosphorus Magnesium AST ALT Alkaline Phosphatase Troponin T C-Reactive Protein Total Protein Albumin LDL Cholesterol Direct HDL Cholesterol Urine Creatinine Hepatitis C Antibody Crossmatch Crossmatch [place] 11/21/17 11/21/17 11/21/17 04:30 04:30 04:58 WBC 21.0 H RBC Hgb 9.6 L Hct 32.7 L MCV MCH 25 L MCHC 29 L RDW 19.7 H Plt Count 746 H Lymph % (Auto) [place] % (Auto) Eos % (Auto) Lymph # [place] # Eos # Baso # Seg Neutrophils % Seg Neuts % (Manual) Lymphocytes % (Manual) Monocytes % (Manual) Eosinophils % (Manual) Nucleated RBC % Seg Neutrophils # Seg Neutrophils # Man Lymphocytes # (Manual) Monocytes # (Manual) Eosinophils # (Manual) PT INR POC ABG pH POC ABG pCO2 POC ABG pO2 Sodium Potassium Chloride 109.4 H Carbon Dioxide 14 L BUN 59 H Creatinine 3.0 H Glucose 137 H POC Glucose 132 H Lactic Acid Calcium 7.6 L Phosphorus Magnesium AST ALT Alkaline Phosphatase Troponin T C-Reactive Protein Total Protein Albumin LDL Cholesterol Direct HDL Cholesterol Urine Creatinine Hepatitis C Antibody Crossmatch Crossmatch [place] 11/21/17 11/21/17 11/21/17 06:30 13:43 14:17 WBC 38.2 H RBC Hgb 9.0 L Hct 32.3 L MCV MCH 25 L MCHC 28 L RDW 20.0 H Plt Count 766 H Lymph % (Auto) [place] % (Auto) Eos % (Auto) Lymph # [place] # Eos # Baso # Seg Neutrophils % Seg Neuts % (Manual) 85.0 H Lymphocytes % (Manual) 1.0 L Monocytes % (Manual) Eosinophils % (Manual) Nucleated RBC % 2.0 H Seg Neutrophils # Seg Neutrophils # Man 32.5 H Lymphocytes # (Manual) 0.4 L Monocytes # (Manual) 2.3 H Eosinophils # (Manual) PT INR POC ABG pH POC ABG pCO2 18.6 L POC ABG pO2 121 H Sodium 146 H Potassium Chloride 110.9 H Carbon Dioxide 11 L BUN 62 H Creatinine 4.0 H Glucose 64 L POC Glucose Lactic Acid Calcium 7.6 L Phosphorus Magnesium AST ALT Alkaline Phosphatase Troponin T C-Reactive Protein Total Protein Albumin LDL Cholesterol Direct HDL Cholesterol Urine Creatinine Hepatitis C Antibody Crossmatch Crossmatch [place] 11/21/17 11/21/17 11/22/17 14:17 19:09 00:05 WBC RBC Hgb Hct MCV MCH MCHC RDW Plt Count Lymph % (Auto) [place] % (Auto) Eos % (Auto) Lymph # [place] # Eos # Baso # Seg Neutrophils % Seg Neuts % (Manual) Lymphocytes % (Manual) Monocytes % (Manual) Eosinophils % (Manual) Nucleated RBC % Seg Neutrophils # Seg Neutrophils # Man Lymphocytes # (Manual) Monocytes # (Manual) Eosinophils # (Manual) PT INR POC ABG pH POC ABG pCO2 20.0 L POC ABG pO2 Sodium Potassium Chloride Carbon Dioxide BUN Creatinine Glucose POC Glucose 127 H Lactic Acid 7.70 H* Calcium Phosphorus Magnesium AST ALT Alkaline Phosphatase Troponin T C-Reactive Protein Total Protein Albumin LDL Cholesterol Direct HDL Cholesterol Urine Creatinine Hepatitis C Antibody Crossmatch Crossmatch [place] 11/22/17 11/22/17 11/22/17 03:53 06:00 07:25 WBC RBC Hgb Hct MCV MCH MCHC RDW Plt Count Lymph % (Auto) [place] % (Auto) Eos % (Auto) Lymph # [place] # Eos # Baso # Seg Neutrophils % Seg Neuts % (Manual) Lymphocytes % (Manual) Monocytes % (Manual) Eosinophils % (Manual) Nucleated RBC % Seg Neutrophils # Seg Neutrophils # Man Lymphocytes # (Manual) Monocytes # (Manual) Eosinophils # (Manual) PT INR POC ABG pH POC ABG pCO2 22.2 L POC ABG pO2 Sodium 147 H Potassium Chloride 111.9 H Carbon Dioxide 16 L BUN 72 H Creatinine 5.1 H Glucose 181 H POC Glucose 180 H Lactic Acid Calcium 7.1 L Phosphorus Magnesium AST ALT Alkaline Phosphatase Troponin T C-Reactive Protein Total Protein Albumin LDL Cholesterol Direct HDL Cholesterol Urine Creatinine Hepatitis C Antibody Crossmatch Crossmatch [place] 11/22/17 11/22/17 11/22/17 07:25 07:25 12:05 WBC 31.4 H RBC 3.22 L Hgb 8.0 L Hct 26.7 L MCV 83 L MCH 25 L MCHC 30 L RDW 19.4 H Plt Count 602 H Lymph % (Auto) [place] % (Auto) Eos % (Auto) Lymph # [place] # Eos # Baso # Seg Neutrophils % Seg Neuts % (Manual) Lymphocytes % (Manual) Monocytes % (Manual) Eosinophils % (Manual) Nucleated RBC % Seg Neutrophils # Seg Neutrophils # Man Lymphocytes # (Manual) Monocytes # (Manual) Eosinophils # (Manual) PT INR POC ABG pH POC ABG pCO2 POC ABG pO2 Sodium Potassium Chloride Carbon Dioxide BUN Creatinine Glucose POC Glucose 182 H Lactic Acid 5.00 H* Calcium Phosphorus Magnesium AST ALT Alkaline Phosphatase Troponin T C-Reactive Protein Total Protein Albumin LDL Cholesterol Direct HDL Cholesterol Urine Creatinine Hepatitis C Antibody Crossmatch Crossmatch [place] 11/22/17 11/23/17 11/23/17 19:45 01:28 04:56 WBC RBC Hgb Hct MCV MCH MCHC RDW Plt Count Lymph % (Auto) [place] % (Auto) Eos % (Auto) Lymph # [place] # Eos # Baso # Seg Neutrophils % Seg Neuts % (Manual) Lymphocytes % (Manual) Monocytes % (Manual) Eosinophils % (Manual) Nucleated RBC % Seg Neutrophils # Seg Neutrophils # Man Lymphocytes # (Manual) Monocytes # (Manual) Eosinophils # (Manual) PT INR POC ABG pH 7.505 H POC ABG pCO2 26.3 L POC ABG pO2 Sodium Potassium Chloride Carbon Dioxide BUN Creatinine Glucose POC Glucose 165 H Lactic Acid Calcium Phosphorus Magnesium AST ALT Alkaline Phosphatase Troponin T C-Reactive Protein Total Protein Albumin LDL Cholesterol Direct HDL Cholesterol Urine Creatinine Hepatitis C Antibody Reactive A Crossmatch Crossmatch [place] 11/23/17 11/23/17 11/23/17 07:05 12:32 17:53 WBC RBC Hgb Hct MCV MCH MCHC RDW Plt Count Lymph % (Auto) [place] % (Auto) Eos % (Auto) Lymph # [place] # Eos # Baso # Seg Neutrophils % Seg Neuts % (Manual) Lymphocytes % (Manual) Monocytes % (Manual) Eosinophils % (Manual) Nucleated RBC % Seg Neutrophils # Seg Neutrophils # Man Lymphocytes # (Manual) Monocytes # (Manual) Eosinophils # (Manual) PT INR POC ABG pH POC ABG pCO2 POC ABG pO2 Sodium Potassium Chloride Carbon Dioxide 18 L BUN 61 H Creatinine 4.2 H Glucose 153 H POC Glucose 138 H 173 H Lactic Acid Calcium 7.5 L Phosphorus Magnesium AST ALT Alkaline Phosphatase Troponin T C-Reactive Protein Total Protein Albumin LDL Cholesterol Direct HDL Cholesterol Urine Creatinine Hepatitis C Antibody Crossmatch Crossmatch [place] 11/23/17 11/24/17 11/24/17 23:41 05:42 05:42 WBC 21.5 H RBC 2.48 L Hgb 6.2 L Hct 20.3 L D MCV 82 L MCH 25 L MCHC 31 L RDW 18.9 H Plt Count Lymph % (Auto) [place] % (Auto) Eos % (Auto) Lymph # [place] # Eos # Baso # Seg Neutrophils % Seg Neuts % (Manual) 94.0 H Lymphocytes % (Manual) 3.0 L Monocytes % (Manual) Eosinophils % (Manual) Nucleated RBC % Seg Neutrophils # Seg Neutrophils # Man 20.2 H Lymphocytes # (Manual) 0.6 L Monocytes # (Manual) Eosinophils # (Manual) PT INR POC ABG pH POC ABG pCO2 POC ABG pO2 Sodium 149 H Potassium 2.8 L* D Chloride 113.9 H Carbon Dioxide 19 L BUN 31 H Creatinine 2.3 H Glucose 103 H POC Glucose 133 H Lactic Acid Calcium 5.3 L* D Phosphorus Magnesium 1.30 L AST ALT Alkaline Phosphatase Troponin T C-Reactive Protein Total Protein Albumin LDL Cholesterol Direct HDL Cholesterol Urine Creatinine Hepatitis C Antibody Crossmatch Crossmatch [place] 11/24/17 11/24/17 11/24/17 05:42 08:27 08:27 WBC RBC Hgb Hct MCV MCH MCHC RDW Plt Count Lymph % (Auto) [place] % (Auto) Eos % (Auto) Lymph # [place] # Eos # Baso # Seg Neutrophils % Seg Neuts % (Manual) Lymphocytes % (Manual) Monocytes % (Manual) Eosinophils % (Manual) Nucleated RBC % Seg Neutrophils # Seg Neutrophils # Man Lymphocytes # (Manual) Monocytes # (Manual) Eosinophils # (Manual) PT INR POC ABG pH POC ABG pCO2 POC ABG pO2 Sodium Potassium Chloride Carbon Dioxide BUN Creatinine Glucose POC Glucose Lactic Acid 5.40 H* 5.20 H* Calcium Phosphorus Magnesium AST ALT Alkaline Phosphatase Troponin T C-Reactive Protein Total Protein Albumin LDL Cholesterol Direct HDL Cholesterol Urine Creatinine Hepatitis C Antibody Crossmatch See Detail Crossmatch [facility]armed 11/24/17 11/24/17 11/24/17 12:13 17:22 21:53 WBC 23.0 H RBC 3.32 L Hgb 8.8 L Hct 27.1 L D MCV 82 L MCH 26 L MCHC RDW 17.3 H Plt Count Lymph % (Auto) [place] % (Auto) Eos % (Auto) Lymph # [place] # Eos # Baso # Seg Neutrophils % Seg Neuts % (Manual) Lymphocytes % (Manual) Monocytes % (Manual) Eosinophils % (Manual) Nucleated RBC % Seg Neutrophils # Seg Neutrophils # Man Lymphocytes # (Manual) Monocytes # (Manual) Eosinophils # (Manual) PT INR POC ABG pH POC ABG pCO2 POC ABG pO2 Sodium Potassium Chloride Carbon Dioxide BUN Creatinine Glucose POC Glucose 138 H 180 H Lactic Acid Calcium Phosphorus Magnesium AST ALT Alkaline Phosphatase Troponin T C-Reactive Protein Total Protein Albumin LDL Cholesterol Direct HDL Cholesterol Urine Creatinine Hepatitis C Antibody Crossmatch Crossmatch [place] 11/24/17 11/24/17 11/25/17 21:53 23:28 04:19 WBC RBC Hgb Hct MCV MCH MCHC RDW Plt Count Lymph % (Auto) [place] % (Auto) Eos % (Auto) Lymph # [place] # Eos # Baso # Seg Neutrophils % Seg Neuts % (Manual) Lymphocytes % (Manual) Monocytes % (Manual) Eosinophils % (Manual) Nucleated RBC % Seg Neutrophils # Seg Neutrophils # Man Lymphocytes # (Manual) Monocytes # (Manual) Eosinophils # (Manual) PT INR POC ABG pH POC ABG pCO2 POC ABG pO2 Sodium Potassium Chloride 96.3 L Carbon Dioxide BUN 28 H 31 H Creatinine 2.3 H 2.6 H Glucose 125 H 101 H POC Glucose 111 H Lactic Acid Calcium 7.5 L D 7.4 L Phosphorus Magnesium AST 170 H ALT 179 H Alkaline Phosphatase 175 H Troponin T C-Reactive Protein Total Protein 5.5 L Albumin 1.8 L LDL Cholesterol Direct HDL Cholesterol Urine Creatinine Hepatitis C Antibody Crossmatch [facility] 11/25/17 11/25/17 11/26/17 04:19 04:19 06:29 WBC 22.5 H RBC 3.48 L Hgb 9.1 L Hct 28.3 L MCV 81 L MCH 26 L MCHC RDW 17.4 H Plt Count Lymph % (Auto) [place] % (Auto) Eos % (Auto) Lymph # [place] # Eos # Baso # Seg Neutrophils % Seg Neuts % (Manual) Lymphocytes % (Manual) Monocytes % (Manual) Eosinophils % (Manual) Nucleated RBC % Seg Neutrophils # Seg Neutrophils # Man Lymphocytes # (Manual) Monocytes # (Manual) Eosinophils # (Manual) PT 23.6 H INR 1.96 H POC ABG pH POC ABG pCO2 POC ABG pO2 Sodium Potassium Chloride Carbon Dioxide BUN 31 H Creatinine 2.6 H Glucose 101 H POC Glucose Lactic Acid Calcium 7.5 L Phosphorus Magnesium AST ALT Alkaline Phosphatase Troponin T C-Reactive Protein Total Protein Albumin LDL Cholesterol Direct HDL Cholesterol Urine Creatinine Hepatitis C Antibody Crossmatch [facility] 11/26/17 11/27/17 11/27/17 06:34 04:06 04:06 WBC 11.3 H RBC 3.13 L Hgb 8.4 L Hct 25.8 L MCV 82 L MCH 27 L MCHC RDW 17.7 H Plt Count Lymph % (Auto) 7.4 L [place] % (Auto) Eos % (Auto) Lymph # 0.8 L [place] # Eos # Baso # Seg Neutrophils % 83.7 H Seg Neuts % (Manual) Lymphocytes % (Manual) Monocytes % (Manual) Eosinophils % (Manual) Nucleated RBC % Seg Neutrophils # 9.5 H Seg Neutrophils # Man Lymphocytes # (Manual) Monocytes # (Manual) Eosinophils # (Manual) PT INR POC ABG pH POC ABG pCO2 POC ABG pO2 Sodium Potassium Chloride 97.9 L Carbon Dioxide BUN 43 H 29 H Creatinine 3.5 H 2.9 H Glucose POC Glucose Lactic Acid Calcium 7.5 L 8.1 L Phosphorus Magnesium AST ALT Alkaline Phosphatase Troponin T C-Reactive Protein Total Protein Albumin LDL Cholesterol Direct HDL Cholesterol Urine Creatinine Hepatitis C Antibody Crossmatch [facility] 11/27/17 11/28/17 11/28/17 18:11 00:16 03:50 WBC RBC Hgb Hct MCV MCH MCHC RDW Plt Count Lymph % (Auto) [place] % (Auto) Eos % (Auto) Lymph # [place] # Eos # Baso # Seg Neutrophils % Seg Neuts % (Manual) Lymphocytes % (Manual) Monocytes % (Manual) Eosinophils % (Manual) Nucleated RBC % Seg Neutrophils # Seg Neutrophils # Man Lymphocytes # (Manual) Monocytes # (Manual) Eosinophils # (Manual) PT INR POC ABG pH POC ABG pCO2 POC ABG pO2 Sodium Potassium Chloride Carbon Dioxide BUN 39 H Creatinine 4.1 H Glucose 108 H POC Glucose 110 H 124 H Lactic Acid Calcium 7.9 L Phosphorus Magnesium AST ALT Alkaline Phosphatase Troponin T C-Reactive Protein Total Protein Albumin LDL Cholesterol Direct HDL Cholesterol Urine Creatinine Hepatitis C Antibody Crossmatch [facility] 11/28/17 11/28/17 11/28/17 05:03 11:36 17:42 WBC RBC Hgb Hct MCV MCH MCHC RDW Plt Count Lymph % (Auto) [place] % (Auto) Eos % (Auto) Lymph # [place] # Eos # Baso # Seg Neutrophils % Seg Neuts % (Manual) Lymphocytes % (Manual) Monocytes % (Manual) Eosinophils % (Manual) Nucleated RBC % Seg Neutrophils # Seg Neutrophils # Man Lymphocytes # (Manual) Monocytes # (Manual) Eosinophils # (Manual) PT INR POC ABG pH POC ABG pCO2 POC ABG pO2 Sodium Potassium Chloride Carbon Dioxide BUN Creatinine Glucose POC Glucose 134 H 114 H 119 H Lactic Acid Calcium Phosphorus Magnesium AST ALT Alkaline Phosphatase Troponin T C-Reactive Protein Total Protein Albumin LDL Cholesterol Direct HDL Cholesterol Urine Creatinine Hepatitis C Antibody Crossmatch [facility] 0911/29/17 11/29/17 00:22 05:25 05:25 WBC 12.3 H RBC 3.34 L Hgb 8.6 L Hct 27.3 L MCV 82 L MCH 26 L MCHC RDW 18.5 H Plt Count Lymph % (Auto) 3.7 L [place] % (Auto) 7.7 H Eos % (Auto) Lymph # 0.5 L [place] # 1.0 H Eos # Baso # Seg Neutrophils % 86.5 H Seg Neuts % (Manual) Lymphocytes % (Manual) Monocytes % (Manual) Eosinophils % (Manual) Nucleated RBC % Seg Neutrophils # 10.7 H Seg Neutrophils # Man Lymphocytes # (Manual) Monocytes # (Manual) Eosinophils # (Manual) PT INR POC ABG pH POC ABG pCO2 POC ABG pO2 Sodium Potassium Chloride Carbon Dioxide BUN 29 H Creatinine 3.5 H Glucose 109 H POC Glucose 137 H Lactic Acid Calcium 7.8 L Phosphorus Magnesium AST ALT Alkaline Phosphatase Troponin T C-Reactive Protein Total Protein Albumin LDL Cholesterol Direct HDL Cholesterol Urine Creatinine Hepatitis C Antibody Crossmatch [facility] 11/29/17 11/30/17 11/30/17 05:26 00:26 04:17 WBC RBC Hgb Hct MCV MCH MCHC RDW Plt Count Lymph % (Auto) [place] % (Auto) Eos % (Auto) Lymph # [place] # Eos # Baso # Seg Neutrophils % Seg Neuts % (Manual) Lymphocytes % (Manual) Monocytes % (Manual) Eosinophils % (Manual) Nucleated RBC % Seg Neutrophils # Seg Neutrophils # Man Lymphocytes # (Manual) Monocytes # (Manual) Eosinophils # (Manual) PT INR POC ABG pH POC ABG pCO2 POC ABG pO2 Sodium Potassium Chloride Carbon Dioxide BUN 38 H Creatinine 4.3 H Glucose 109 H POC Glucose 129 H 152 H Lactic Acid Calcium 7.8 L Phosphorus Magnesium AST ALT Alkaline Phosphatase Troponin T C-Reactive Protein Total Protein Albumin LDL Cholesterol Direct HDL Cholesterol Urine Creatinine Hepatitis C Antibody Crossmatch [facility] 11/30/17 11/30/17 11/30/17 12:17 16:23 23:35 WBC RBC Hgb Hct MCV MCH MCHC RDW Plt Count Lymph % (Auto) [place] % (Auto) Eos % (Auto) Lymph # [place] # Eos # Baso # Seg Neutrophils % Seg Neuts % (Manual) Lymphocytes % (Manual) Monocytes % (Manual) Eosinophils % (Manual) Nucleated RBC % Seg Neutrophils # Seg Neutrophils # Man Lymphocytes # (Manual) Monocytes # (Manual) Eosinophils # (Manual) PT INR POC ABG pH POC ABG pCO2 POC ABG pO2 Sodium Potassium Chloride Carbon Dioxide BUN Creatinine Glucose POC Glucose 170 H 114 H 122 H Lactic Acid Calcium Phosphorus Magnesium AST ALT Alkaline Phosphatase Troponin T C-Reactive Protein Total Protein Albumin LDL Cholesterol Direct HDL Cholesterol Urine Creatinine Hepatitis C Antibody Crossmatch [facility] 12/01/17 12/01/17 12/01/17 04:09 04:09 12:17 WBC 14.1 H RBC 3.32 L Hgb 8.6 L Hct 27.0 L MCV 81 L MCH 26 L MCHC RDW 18.7 H Plt Count Lymph % (Auto) 5.5 L [place] % (Auto) 9.7 H Eos % (Auto) Lymph # 0.8 L [place] # 1.4 H Eos # Baso # Seg Neutrophils % 82.9 H Seg Neuts % (Manual) Lymphocytes % (Manual) Monocytes % (Manual) Eosinophils % (Manual) Nucleated RBC % Seg Neutrophils # 11.7 H Seg Neutrophils # Man Lymphocytes # (Manual) Monocytes # (Manual) Eosinophils # (Manual) PT INR POC ABG pH POC ABG pCO2 POC ABG pO2 Sodium Potassium 3.4 L Chloride Carbon Dioxide BUN 21 H Creatinine 3.0 H Glucose 108 H POC Glucose 126 H Lactic Acid Calcium 8.0 L Phosphorus Magnesium AST ALT Alkaline Phosphatase Troponin T C-Reactive Protein Total Protein Albumin LDL Cholesterol Direct HDL Cholesterol Urine Creatinine Hepatitis C Antibody Crossmatch [facility] 12/02/17 12/03/17 12/03/17 23:46 02:52 05:54 WBC 17.2 H RBC 3.21 L Hgb 8.5 L Hct 25.8 L MCV 80 L MCH 26 L MCHC RDW 18.4 H Plt Count 128 L Lymph % (Auto) [place] % (Auto) Eos % (Auto) Lymph # [place] # Eos # Baso # Seg Neutrophils % Seg Neuts % (Manual) Lymphocytes % (Manual) Monocytes % (Manual) Eosinophils % (Manual) Nucleated RBC % Seg Neutrophils # Seg Neutrophils # Man Lymphocytes # (Manual) Monocytes # (Manual) Eosinophils # (Manual) PT INR POC ABG pH POC ABG pCO2 POC ABG pO2 Sodium Potassium Chloride Carbon Dioxide BUN Creatinine Glucose POC Glucose 125 H 107 H Lactic Acid Calcium Phosphorus Magnesium AST ALT Alkaline Phosphatase Troponin T C-Reactive Protein Total Protein Albumin LDL Cholesterol Direct HDL Cholesterol Urine Creatinine Hepatitis C Antibody Crossmatch [facility] 12/03/17 12/03/17 12/04/17 12:05 Unknown 12:26 WBC RBC Hgb Hct MCV MCH MCHC RDW Plt Count Lymph % (Auto) [place] % (Auto) Eos % (Auto) Lymph # [place] # Eos # Baso # Seg Neutrophils % Seg Neuts % (Manual) Lymphocytes % (Manual) Monocytes % (Manual) Eosinophils % (Manual) Nucleated RBC % Seg Neutrophils # Seg Neutrophils # Man Lymphocytes # (Manual) Monocytes # (Manual) Eosinophils # (Manual) PT INR POC ABG pH POC ABG pCO2 POC ABG pO2 Sodium Potassium Chloride Carbon Dioxide BUN 21 H Creatinine 2.8 H Glucose 113 H POC Glucose 106 H 119 H Lactic Acid Calcium Phosphorus Magnesium AST ALT Alkaline Phosphatase Troponin T C-Reactive Protein Total Protein Albumin LDL Cholesterol Direct HDL Cholesterol Urine Creatinine Hepatitis C Antibody Crossmatch [facility] 12/04/17 12/05/17 12/05/17 17:57 00:52 04:05 WBC RBC 2.96 L Hgb 7.7 L Hct 24.2 L MCV 82 L MCH 26 L MCHC RDW 18.8 H Plt Count 105 L Lymph % (Auto) 10.6 L [place] % (Auto) 12.1 H Eos % (Auto) 5.2 H Lymph # 1.1 L [place] # 1.3 H Eos # 0.5 H Baso # Seg Neutrophils % 71.3 H Seg Neuts % (Manual) Lymphocytes % (Manual) Monocytes % (Manual) Eosinophils % (Manual) Nucleated RBC % Seg Neutrophils # Seg Neutrophils # Man Lymphocytes # (Manual) Monocytes # (Manual) Eosinophils # (Manual) PT INR POC ABG pH POC ABG pCO2 POC ABG pO2 Sodium Potassium Chloride Carbon Dioxide BUN Creatinine Glucose POC Glucose 140 H 117 H Lactic Acid Calcium Phosphorus Magnesium AST ALT Alkaline Phosphatase Troponin T C-Reactive Protein Total Protein Albumin LDL Cholesterol Direct HDL Cholesterol Urine Creatinine Hepatitis C Antibody Crossmatch [facility] 12/05/17 12/05/17 12/06/17 04:05 22:50 08:18 WBC RBC 2.80 L Hgb 7.4 L Hct 23.0 L MCV 82 L MCH 27 L MCHC RDW 19.5 H Plt Count 125 L Lymph % (Auto) [place] % (Auto) Eos % (Auto) Lymph # [place] # Eos # Baso # Seg Neutrophils % Seg Neuts % (Manual) Lymphocytes % (Manual) Monocytes % (Manual) Eosinophils % (Manual) Nucleated RBC % Seg Neutrophils # Seg Neutrophils # Man Lymphocytes # (Manual) Monocytes # (Manual) Eosinophils # (Manual) PT INR POC ABG pH POC ABG pCO2 POC ABG pO2 Sodium Potassium Chloride 107.4 H Carbon Dioxide BUN Creatinine 2.5 H Glucose POC Glucose 112 H Lactic Acid Calcium 8.3 L Phosphorus Magnesium AST ALT Alkaline Phosphatase Troponin T C-Reactive Protein Total Protein Albumin LDL Cholesterol Direct HDL Cholesterol Urine Creatinine Hepatitis C Antibody Crossmatch [facility] 12/06/17 12/06/17 12/06/17 08:18 12:01 23:58 WBC RBC Hgb Hct MCV MCH MCHC RDW Plt Count Lymph % (Auto) [place] % (Auto) Eos % (Auto) Lymph # [place] # Eos # Baso # Seg Neutrophils % Seg Neuts % (Manual) Lymphocytes % (Manual) Monocytes % (Manual) Eosinophils % (Manual) Nucleated RBC % Seg Neutrophils # Seg Neutrophils # Man Lymphocytes # (Manual) Monocytes # (Manual) Eosinophils # (Manual) PT INR POC ABG pH POC ABG pCO2 POC ABG pO2 Sodium Potassium Chloride 108.4 H Carbon Dioxide BUN 28 H Creatinine 3.7 H Glucose 103 H POC Glucose 106 H 108 H Lactic Acid Calcium 8.0 L Phosphorus Magnesium AST ALT Alkaline Phosphatase Troponin T C-Reactive Protein Total Protein Albumin LDL Cholesterol Direct HDL Cholesterol Urine Creatinine Hepatitis C Antibody Crossmatch [facility] 12/07/17 12/07/17 12/07/17 05:47 05:47 18:03 WBC RBC 2.79 L Hgb 7.3 L Hct 22.8 L MCV 82 L MCH 26 L MCHC RDW 19.1 H Plt Count 101 L Lymph % (Auto) [place] % (Auto) Eos % (Auto) Lymph # [place] # Eos # Baso # Seg Neutrophils % Seg Neuts % (Manual) 72.0 H Lymphocytes % (Manual) 13.0 L Monocytes % (Manual) Eosinophils % (Manual) 9.0 H Nucleated RBC % Seg Neutrophils # Seg Neutrophils # Man Lymphocytes # (Manual) 1.1 L Monocytes # (Manual) Eosinophils # (Manual) 0.8 H PT INR POC ABG pH POC ABG pCO2 POC ABG pO2 Sodium 146 H Potassium Chloride 109.8 H Carbon Dioxide BUN 36 H Creatinine 4.0 H Glucose POC Glucose 143 H Lactic Acid Calcium 8.0 L Phosphorus Magnesium AST ALT Alkaline Phosphatase Troponin T C-Reactive Protein Total Protein Albumin LDL Cholesterol Direct HDL Cholesterol Urine Creatinine Hepatitis C Antibody Crossmatch [facility] 12/07/17 12/08/17 12/08/17 23:33 05:10 05:10 WBC RBC 2.91 L Hgb 7.5 L Hct 24.4 L MCV MCH 26 L MCHC 31 L RDW 19.7 H Plt Count 109 L Lymph % (Auto) [place] % (Auto) Eos % (Auto) Lymph # [place] # Eos # Baso # Seg Neutrophils % Seg Neuts % (Manual) Lymphocytes % (Manual) 11.0 L Monocytes % (Manual) Eosinophils % (Manual) 12.0 H Nucleated RBC % Seg Neutrophils # Seg Neutrophils # Man Lymphocytes # (Manual) 0.7 L Monocytes # (Manual) Eosinophils # (Manual) 0.7 H PT INR POC ABG pH POC ABG pCO2 POC ABG pO2 Sodium 147 H Potassium Chloride 110.4 H Carbon Dioxide BUN Creatinine 2.8 H Glucose POC Glucose 107 H Lactic Acid Calcium 7.8 L Phosphorus Magnesium AST ALT Alkaline Phosphatase Troponin T C-Reactive Protein Total Protein Albumin LDL Cholesterol Direct HDL Cholesterol Urine Creatinine Hepatitis C Antibody Crossmatch [facility] 12/09/17 12/09/17 12/09/17 04:18 04:18 12:16 WBC RBC Hgb 7.2 L Hct 23.2 L MCV MCH MCHC RDW Plt Count Lymph % (Auto) [place] % (Auto) Eos % (Auto) Lymph # [place] # Eos # Baso # Seg Neutrophils % Seg Neuts % (Manual) Lymphocytes % (Manual) Monocytes % (Manual) Eosinophils % (Manual) Nucleated RBC % Seg Neutrophils # Seg Neutrophils # Man Lymphocytes # (Manual) Monocytes # (Manual) Eosinophils # (Manual) PT INR POC ABG pH POC ABG pCO2 POC ABG pO2 Sodium 150 H Potassium Chloride 114.5 H Carbon Dioxide BUN 25 H Creatinine 3.3 H Glucose POC Glucose 142 H Lactic Acid Calcium 7.7 L Phosphorus Magnesium AST ALT Alkaline Phosphatase Troponin T C-Reactive Protein Total Protein Albumin LDL Cholesterol Direct HDL Cholesterol Urine Creatinine Hepatitis C Antibody Crossmatch [facility] 12/10/17 12/10/17 12/11/17 05:14 05:14 12:05 WBC RBC 2.81 L Hgb 7.4 L Hct 23.9 L MCV MCH 26 L MCHC 31 L RDW 19.1 H Plt Count 128 L Lymph % (Auto) [place] % (Auto) Eos % (Auto) Lymph # [place] # Eos # Baso # Seg Neutrophils % Seg Neuts % (Manual) 78.0 H Lymphocytes % (Manual) 8.0 L Monocytes % (Manual) Eosinophils % (Manual) 5.0 H Nucleated RBC % Seg Neutrophils # Seg Neutrophils # Man Lymphocytes # (Manual) 0.6 L Monocytes # (Manual) Eosinophils # (Manual) PT INR POC ABG pH POC ABG pCO2 POC ABG pO2 Sodium Potassium Chloride Carbon Dioxide BUN Creatinine 2.2 H Glucose POC Glucose 127 H Lactic Acid Calcium 7.8 L Phosphorus Magnesium AST ALT Alkaline Phosphatase Troponin T C-Reactive Protein Total Protein Albumin LDL Cholesterol Direct HDL Cholesterol Urine Creatinine Hepatitis C Antibody Crossmatch [facility] 12/11/17 12/11/17 12/11/17 15:26 18:36 23:40 WBC RBC Hgb Hct MCV MCH MCHC RDW Plt Count Lymph % (Auto) [place] % (Auto) Eos % (Auto) Lymph # [place] # Eos # Baso # Seg Neutrophils % Seg Neuts % (Manual) Lymphocytes % (Manual) Monocytes % (Manual) Eosinophils % (Manual) Nucleated RBC % Seg Neutrophils # Seg Neutrophils # Man Lymphocytes # (Manual) Monocytes # (Manual) Eosinophils # (Manual) PT INR POC ABG pH POC ABG pCO2 POC ABG pO2 Sodium Potassium 3.3 L Chloride Carbon Dioxide BUN Creatinine 1.6 H Glucose POC Glucose 106 H 110 H Lactic Acid Calcium 7.6 L Phosphorus Magnesium AST ALT Alkaline Phosphatase Troponin T C-Reactive Protein Total Protein Albumin LDL Cholesterol Direct HDL Cholesterol Urine Creatinine Hepatitis C Antibody Crossmatch [facility] 12/12/17 12/12/17 12/12/17 05:10 05:41 05:41 WBC RBC 3.17 L Hgb 8.1 L Hct 25.7 L MCV 81 L MCH 25 L MCHC 31 L RDW 19.2 H Plt Count Lymph % (Auto) [place] % (Auto) Eos % (Auto) Lymph # [place] # Eos # Baso # Seg Neutrophils % Seg Neuts % (Manual) 74.0 H Lymphocytes % (Manual) 6.0 L Monocytes % (Manual) Eosinophils % (Manual) 9.0 H Nucleated RBC % Seg Neutrophils # Seg Neutrophils # Man Lymphocytes # (Manual) 0.6 L Monocytes # (Manual) Eosinophils # (Manual) 0.9 H PT INR POC ABG pH POC ABG pCO2 POC ABG pO2 Sodium Potassium 3.5 L Chloride Carbon Dioxide BUN Creatinine 2.3 H Glucose 113 H POC Glucose 112 H Lactic Acid Calcium 7.5 L Phosphorus Magnesium AST ALT Alkaline Phosphatase Troponin T C-Reactive Protein Total Protein Albumin LDL Cholesterol Direct HDL Cholesterol Urine Creatinine Hepatitis C Antibody Crossmatch [facility] 12/13/17 12/13/17 12/13/17 06:14 12:00 17:37 WBC RBC Hgb Hct MCV MCH MCHC RDW Plt Count Lymph % (Auto) [place] % (Auto) Eos % (Auto) Lymph # [place] # Eos # Baso # Seg Neutrophils % Seg Neuts % (Manual) Lymphocytes % (Manual) Monocytes % (Manual) Eosinophils % (Manual) Nucleated RBC % Seg Neutrophils # Seg Neutrophils # Man Lymphocytes # (Manual) Monocytes # (Manual) Eosinophils # (Manual) PT INR POC ABG pH POC ABG pCO2 POC ABG pO2 Sodium Potassium Chloride Carbon Dioxide BUN Creatinine Glucose POC Glucose 130 H 133 H 136 H Lactic Acid Calcium Phosphorus Magnesium AST ALT Alkaline Phosphatase Troponin T C-Reactive Protein Total Protein Albumin LDL Cholesterol Direct HDL Cholesterol Urine Creatinine Hepatitis C Antibody Crossmatch [facility] 12/13/17 12/14/17 12/14/17 23:39 05:11 05:11 WBC RBC Hgb Hct MCV MCH MCHC RDW Plt Count Lymph % (Auto) [place] % (Auto) Eos % (Auto) Lymph # [place] # Eos # Baso # Seg Neutrophils % Seg Neuts % (Manual) Lymphocytes % (Manual) Monocytes % (Manual) Eosinophils % (Manual) Nucleated RBC % Seg Neutrophils # Seg Neutrophils # Man Lymphocytes # (Manual) Monocytes # (Manual) Eosinophils # (Manual) PT 15.4 H INR 1.17 H POC ABG pH POC ABG pCO2 POC ABG pO2 Sodium Potassium Chloride Carbon Dioxide 21 L BUN 26 H Creatinine 2.9 H Glucose POC Glucose 108 H Lactic Acid Calcium 7.2 L Phosphorus Magnesium AST ALT Alkaline Phosphatase Troponin T C-Reactive Protein Total Protein Albumin LDL Cholesterol Direct HDL Cholesterol Urine Creatinine Hepatitis C Antibody Crossmatch [facility] 12/14/17 12/14/17 12/14/17 12:00 16:01 18:24 WBC 12.9 H RBC 3.25 L Hgb 8.2 L Hct 26.2 L MCV 81 L MCH 25 L MCHC 31 L RDW 19.2 H Plt Count Lymph % (Auto) [place] % (Auto) Eos % (Auto) Lymph # [place] # Eos # Baso # Seg Neutrophils % Seg Neuts % (Manual) Lymphocytes % (Manual) Monocytes % (Manual) Eosinophils % (Manual) Nucleated RBC % Seg Neutrophils # Seg Neutrophils # Man Lymphocytes # (Manual) Monocytes # (Manual) Eosinophils # (Manual) PT INR POC ABG pH POC ABG pCO2 POC ABG pO2 Sodium Potassium Chloride Carbon Dioxide BUN Creatinine Glucose POC Glucose 138 H 120 H Lactic Acid Calcium Phosphorus Magnesium AST ALT Alkaline Phosphatase Troponin T C-Reactive Protein Total Protein Albumin LDL Cholesterol Direct HDL Cholesterol Urine Creatinine Hepatitis C Antibody Crossmatch [facility] 12/14/17 12/14/17 12/15/17 23:29 Unknown 05:57 WBC 12.5 H RBC 2.48 L Hgb 6.0 L Hct 24.4 L MCV 79 L MCH 24 L MCHC 30 L RDW 18.5 H Plt Count 131 L Lymph % (Auto) 7.0 L [place] % (Auto) 8.9 H Eos % (Auto) 8.3 H Lymph # 0.9 L [place] # 1.1 H Eos # 1.0 H Baso # Seg Neutrophils % 75.2 H Seg Neuts % (Manual) Lymphocytes % (Manual) Monocytes % (Manual) Eosinophils % (Manual) Nucleated RBC % Seg Neutrophils # 9.4 H Seg Neutrophils # Man Lymphocytes # (Manual) Monocytes # (Manual) Eosinophils # (Manual) PT INR POC ABG pH POC ABG pCO2 POC ABG pO2 Sodium Potassium Chloride Carbon Dioxide BUN Creatinine Glucose POC Glucose 110 H 113 H Lactic Acid Calcium Phosphorus Magnesium AST ALT Alkaline Phosphatase Troponin T C-Reactive Protein Total Protein Albumin LDL Cholesterol Direct HDL Cholesterol Urine Creatinine Hepatitis C Antibody Crossmatch [facility] 12/15/17 12/15/17 12/15/17 11:50 13:37 17:58 WBC RBC Hgb 7.3 L Hct 23.3 L MCV MCH MCHC RDW Plt Count Lymph % (Auto) [place] % (Auto) Eos % (Auto) Lymph # [place] # Eos # Baso # Seg Neutrophils % Seg Neuts % (Manual) Lymphocytes % (Manual) Monocytes % (Manual) Eosinophils % (Manual) Nucleated RBC % Seg Neutrophils # Seg Neutrophils # Man Lymphocytes # (Manual) Monocytes # (Manual) Eosinophils # (Manual) PT INR POC ABG pH POC ABG pCO2 POC ABG pO2 Sodium Potassium Chloride Carbon Dioxide BUN Creatinine Glucose POC Glucose 106 H 110 H Lactic Acid Calcium Phosphorus Magnesium AST ALT Alkaline Phosphatase Troponin T C-Reactive Protein Total Protein Albumin LDL Cholesterol Direct HDL Cholesterol Urine Creatinine Hepatitis C Antibody Crossmatch [facility]match [facility] 12/15/17 12/16/17 12/16/17 23:30 04:55 05:14 WBC 13.2 H RBC 2.79 L Hgb 6.9 L Hct 22.2 L MCV 80 L MCH 25 L MCHC 31 L RDW 18.8 H Plt Count Lymph % (Auto) 7.3 L [place] % (Auto) 11.0 H Eos % (Auto) 8.2 H Lymph # 1.0 L [place] # 1.4 H Eos # 1.1 H Baso # Seg Neutrophils % 72.9 H Seg Neuts % (Manual) Lymphocytes % (Manual) Monocytes % (Manual) Eosinophils % (Manual) Nucleated RBC % Seg Neutrophils # 9.6 H Seg Neutrophils # Man Lymphocytes # (Manual) Monocytes # (Manual) Eosinophils # (Manual) PT INR POC ABG pH POC ABG pCO2 POC ABG pO2 Sodium 131 L D Potassium 2.8 L* D Chloride 93.2 L Carbon Dioxide BUN 24 H Creatinine 2.0 H Glucose POC Glucose 111 H Lactic Acid Calcium 7.7 L Phosphorus Magnesium AST ALT Alkaline Phosphatase Troponin T C-Reactive Protein Total Protein Albumin LDL Cholesterol Direct HDL Cholesterol Urine Creatinine Hepatitis C Antibody Crossmatch [facility]match [facility] 12/16/17 12/16/17 12/16/17 13:01 17:32 23:39 WBC RBC Hgb Hct MCV MCH MCHC RDW Plt Count Lymph % (Auto) [place] % (Auto) Eos % (Auto) Lymph # [place] # Eos # Baso # Seg Neutrophils % Seg Neuts % (Manual) Lymphocytes % (Manual) Monocytes % (Manual) Eosinophils % (Manual) Nucleated RBC % Seg Neutrophils # Seg Neutrophils # Man Lymphocytes # (Manual) Monocytes # (Manual) Eosinophils # (Manual) PT INR POC ABG pH POC ABG pCO2 POC ABG pO2 Sodium Potassium Chloride Carbon Dioxide BUN Creatinine Glucose POC Glucose 121 H 107 H Lactic Acid Calcium Phosphorus Magnesium AST ALT Alkaline Phosphatase Troponin T C-Reactive Protein Total Protein Albumin LDL Cholesterol Direct HDL Cholesterol Urine Creatinine Hepatitis C Antibody Crossmatch Crossmatch [facility] See Detail 12/17/17 12/17/17 12/17/17 05:08 05:08 12:03 WBC 12.9 H RBC 2.88 L Hgb 7.2 L Hct 22.6 L MCV 78 L MCH 25 L MCHC RDW 18.3 H Plt Count Lymph % (Auto) 8.0 L [place] % (Auto) 8.6 H Eos % (Auto) Lymph # 1.0 L [place] # 1.1 H Eos # Baso # Seg Neutrophils % 79.3 H Seg Neuts % (Manual) Lymphocytes % (Manual) Monocytes % (Manual) Eosinophils % (Manual) Nucleated RBC % Seg Neutrophils # 10.2 H Seg Neutrophils # Man Lymphocytes # (Manual) Monocytes # (Manual) Eosinophils # (Manual) PT INR POC ABG pH POC ABG pCO2 POC ABG pO2 Sodium Potassium 3.4 L D Chloride Carbon Dioxide BUN Creatinine Glucose 104 H POC Glucose 109 H Lactic Acid Calcium 7.6 L Phosphorus Magnesium 1.30 L AST ALT Alkaline Phosphatase 177 H Troponin T C-Reactive Protein Total Protein Albumin 2.0 L LDL Cholesterol Direct HDL Cholesterol Urine Creatinine Hepatitis C Antibody Crossmatch [facility]match [facility] 12/17/17 12/18/17 12/18/17 23:40 00:50 00:50 WBC 22.6 H RBC 2.76 L Hgb 6.7 L Hct 21.6 L MCV 78 L MCH 24 L MCHC 31 L RDW 18.4 H Plt Count Lymph % (Auto) [place] % (Auto) Eos % (Auto) Lymph # [place] # Eos # Baso # Seg Neutrophils % Seg Neuts % (Manual) Lymphocytes % (Manual) Monocytes % (Manual) Eosinophils % (Manual) Nucleated RBC % Seg Neutrophils # Seg Neutrophils # Man Lymphocytes # (Manual) Monocytes # (Manual) Eosinophils # (Manual) PT INR POC ABG pH POC ABG pCO2 POC ABG pO2 Sodium Potassium Chloride Carbon Dioxide BUN 22 H Creatinine 1.6 H Glucose 113 H POC Glucose 120 H Lactic Acid Calcium 7.8 L Phosphorus Magnesium 1.50 L AST ALT Alkaline Phosphatase Troponin T C-Reactive Protein Total Protein Albumin LDL Cholesterol Direct HDL Cholesterol Urine Creatinine Hepatitis C Antibody Crossmatch [facility]match [facility] 12/18/17 12/18/17 12/18/17 05:34 12:00 18:07 WBC RBC Hgb Hct MCV MCH MCHC RDW Plt Count Lymph % (Auto) [place] % (Auto) Eos % (Auto) Lymph # [place] # Eos # Baso # Seg Neutrophils % Seg Neuts % (Manual) Lymphocytes % (Manual) Monocytes % (Manual) Eosinophils % (Manual) Nucleated RBC % Seg Neutrophils # Seg Neutrophils # Man Lymphocytes # (Manual) Monocytes # (Manual) Eosinophils # (Manual) PT INR POC ABG pH POC ABG pCO2 POC ABG pO2 Sodium Potassium Chloride Carbon Dioxide BUN Creatinine Glucose POC Glucose 132 H 136 H 122 H Lactic Acid Calcium Phosphorus Magnesium AST ALT Alkaline Phosphatase Troponin T C-Reactive Protein Total Protein Albumin LDL Cholesterol Direct HDL Cholesterol Urine Creatinine Hepatitis C Antibody Crossmatch Crossmatch [facility] 12/19/17 12/19/17 12/19/17 00:24 00:24 05:17 WBC 15.4 H RBC 2.41 L Hgb 6.1 L Hct 19.0 L* MCV 79 L MCH 25 L MCHC RDW 18.5 H Plt Count Lymph % (Auto) [place] % (Auto) Eos % (Auto) Lymph # [place] # Eos # Baso # Seg Neutrophils % Seg Neuts % (Manual) Lymphocytes % (Manual) Monocytes % (Manual) Eosinophils % (Manual) Nucleated RBC % Seg Neutrophils # Seg Neutrophils # Man Lymphocytes # (Manual) Monocytes # (Manual) Eosinophils # (Manual) PT INR POC ABG pH POC ABG pCO2 POC ABG pO2 Sodium Potassium 3.2 L Chloride Carbon Dioxide BUN Creatinine Glucose 117 H POC Glucose 132 H Lactic Acid Calcium 8.2 L Phosphorus Magnesium 1.50 L AST ALT Alkaline Phosphatase Troponin T C-Reactive Protein Total Protein Albumin LDL Cholesterol Direct HDL Cholesterol Urine Creatinine Hepatitis C Antibody Crossmatch Crossmatch [facility] 12/19/17 12/19/17 12/19/17 09:00 09:00 18:01 WBC 12.4 H RBC 2.86 L Hgb 7.2 L Hct 22.6 L MCV 79 L MCH 25 L MCHC RDW 17.2 H Plt Count Lymph % (Auto) 6.8 L [place] % (Auto) 12.6 H Eos % (Auto) Lymph # 0.8 L [place] # 1.6 H Eos # Baso # Seg Neutrophils % 80.1 H Seg Neuts % (Manual) Lymphocytes % (Manual) Monocytes % (Manual) Eosinophils % (Manual) Nucleated RBC % Seg Neutrophils # 10.0 H Seg Neutrophils # Man Lymphocytes # (Manual) Monocytes # (Manual) Eosinophils # (Manual) PT INR POC ABG pH POC ABG pCO2 POC ABG pO2 Sodium Potassium 3.1 L Chloride Carbon Dioxide BUN 22 H Creatinine Glucose 113 H POC Glucose 117 H Lactic Acid Calcium 8.3 L Phosphorus Magnesium AST 54 H ALT Alkaline Phosphatase 204 H Troponin T C-Reactive Protein Total Protein 5.8 L Albumin 2.0 L LDL Cholesterol Direct HDL Cholesterol Urine Creatinine Hepatitis C Antibody Crossmatch Crossmatch [facility] 12/19/17 12/20/17 12/20/17 23:49 05:53 19:00 WBC RBC 3.03 L Hgb 7.7 L Hct 23.7 L MCV 78 L MCH 25 L MCHC RDW 17.2 H Plt Count Lymph % (Auto) [place] % (Auto) Eos % (Auto) Lymph # [place] # Eos # Baso # Seg Neutrophils % Seg Neuts % (Manual) 74.0 H Lymphocytes % (Manual) 6.0 L Monocytes % (Manual) 17.0 H Eosinophils % (Manual) Nucleated RBC % Seg Neutrophils # Seg Neutrophils # Man Lymphocytes # (Manual) 0.5 L Monocytes # (Manual) 1.5 H Eosinophils # (Manual) PT INR POC ABG pH POC ABG pCO2 POC ABG pO2 Sodium Potassium Chloride Carbon Dioxide BUN Creatinine Glucose POC Glucose 125 H 124 H Lactic Acid Calcium Phosphorus Magnesium AST ALT Alkaline Phosphatase Troponin T C-Reactive Protein Total Protein Albumin LDL Cholesterol Direct HDL Cholesterol Urine Creatinine Hepatitis C Antibody Crossmatch Crossmatch [place] 12/20/17 12/21/17 12/22/17 19:00 23:54 05:07 WBC RBC Hgb Hct MCV MCH MCHC RDW Plt Count Lymph % (Auto) [place] % (Auto) Eos % (Auto) Lymph # [place] # Eos # Baso # Seg Neutrophils % Seg Neuts % (Manual) Lymphocytes % (Manual) Monocytes % (Manual) Eosinophils % (Manual) Nucleated RBC % Seg Neutrophils # Seg Neutrophils # Man Lymphocytes # (Manual) Monocytes # (Manual) Eosinophils # (Manual) PT INR POC ABG pH POC ABG pCO2 POC ABG pO2 Sodium Potassium 3.3 L 2.9 L* Chloride Carbon Dioxide BUN 37 H 43 H Creatinine Glucose 114 H POC Glucose 109 H Lactic Acid Calcium 8.3 L 7.8 L Phosphorus 1.60 L Magnesium 1.50 L AST ALT Alkaline Phosphatase Troponin T C-Reactive Protein Total Protein Albumin LDL Cholesterol Direct HDL Cholesterol Urine Creatinine Hepatitis C Antibody Crossmatch Crossmatch [place] 12/22/17 12/22/17 12/22/17 05:07 05:07 06:02 WBC 4.1 L RBC 3.09 L Hgb 7.7 L Hct 24.3 L MCV 79 L MCH 25 L MCHC RDW 17.8 H Plt Count Lymph % (Auto) [place] % (Auto) Eos % (Auto) Lymph # [place] # Eos # Baso # Seg Neutrophils % Seg Neuts % (Manual) Lymphocytes % (Manual) Monocytes % (Manual) Eosinophils % (Manual) Nucleated RBC % Seg Neutrophils # Seg Neutrophils # Man Lymphocytes # (Manual) Monocytes # (Manual) Eosinophils # (Manual) PT INR POC ABG pH POC ABG pCO2 POC ABG pO2 Sodium Potassium Chloride Carbon Dioxide BUN Creatinine Glucose POC Glucose 107 H Lactic Acid Calcium Phosphorus Magnesium 1.60 L AST ALT Alkaline Phosphatase Troponin T C-Reactive Protein Total Protein Albumin LDL Cholesterol Direct HDL Cholesterol Urine Creatinine Hepatitis C Antibody Crossmatch Crossmatch [place] 12/22/17 12/22/17 12/22/17 10:50 12:02 17:32 WBC RBC Hgb Hct MCV MCH MCHC RDW Plt Count Lymph % (Auto) [place] % (Auto) Eos % (Auto) Lymph # [place] # Eos # Baso # Seg Neutrophils % Seg Neuts % (Manual) Lymphocytes % (Manual) Monocytes % (Manual) Eosinophils % (Manual) Nucleated RBC % Seg Neutrophils # Seg Neutrophils # Man Lymphocytes # (Manual) Monocytes # (Manual) Eosinophils # (Manual) PT INR POC ABG pH POC ABG pCO2 POC ABG pO2 Sodium Potassium Chloride Carbon Dioxide BUN Creatinine Glucose POC Glucose 129 H 111 H Lactic Acid Calcium Phosphorus Magnesium AST ALT Alkaline Phosphatase Troponin T C-Reactive Protein Total Protein Albumin LDL Cholesterol Direct HDL Cholesterol Urine Creatinine 55.8 H Hepatitis C Antibody Crossmatch Crossmatch [facility] 12/22/17 12/22/17 12/23/17 19:03 23:57 05:55 WBC RBC Hgb Hct MCV MCH MCHC RDW Plt Count Lymph % (Auto) [place] % (Auto) Eos % (Auto) Lymph # [place] # Eos # Baso # Seg Neutrophils % Seg Neuts % (Manual) Lymphocytes % (Manual) Monocytes % (Manual) Eosinophils % (Manual) Nucleated RBC % Seg Neutrophils # Seg Neutrophils # Man Lymphocytes # (Manual) Monocytes # (Manual) Eosinophils # (Manual) PT INR POC ABG pH POC ABG pCO2 POC ABG pO2 Sodium Potassium 3.4 L 2.9 L* Chloride Carbon Dioxide BUN 40 H Creatinine Glucose 107 H POC Glucose 128 H Lactic Acid Calcium 7.9 L Phosphorus Magnesium AST ALT Alkaline Phosphatase Troponin T C-Reactive Protein Total Protein Albumin LDL Cholesterol Direct HDL Cholesterol Urine Creatinine Hepatitis C Antibody Crossmatch Crossmatch [facility] 12/23/17 12/23/17 12/23/17 05:55 05:55 11:59 WBC 3.8 L RBC 3.10 L Hgb 7.7 L Hct 25.5 L MCV 82 L MCH 25 L MCHC 30 L RDW 17.9 H Plt Count Lymph % (Auto) [place] % (Auto) Eos % (Auto) Lymph # [place] # Eos # Baso # Seg Neutrophils % Seg Neuts % (Manual) Lymphocytes % (Manual) Monocytes % (Manual) Eosinophils % (Manual) Nucleated RBC % Seg Neutrophils # Seg Neutrophils # Man Lymphocytes # (Manual) Monocytes # (Manual) Eosinophils # (Manual) PT INR POC ABG pH POC ABG pCO2 POC ABG pO2 Sodium Potassium Chloride Carbon Dioxide BUN Creatinine Glucose POC Glucose 115 H Lactic Acid Calcium Phosphorus Magnesium 1.60 L AST ALT Alkaline Phosphatase Troponin T C-Reactive Protein Total Protein Albumin LDL Cholesterol Direct HDL Cholesterol Urine Creatinine Hepatitis C Antibody Crossmatch Crossmatch [facility] 12/23/17 12/24/17 12/24/17 22:48 00:29 03:17 WBC RBC Hgb Hct MCV MCH MCHC RDW Plt Count Lymph % (Auto) [place] % (Auto) Eos % (Auto) Lymph # [place] # Eos # Baso # Seg Neutrophils % Seg Neuts % (Manual) Lymphocytes % (Manual) Monocytes % (Manual) Eosinophils % (Manual) Nucleated RBC % Seg Neutrophils # Seg Neutrophils # Man Lymphocytes # (Manual) Monocytes # (Manual) Eosinophils # (Manual) PT INR POC ABG pH POC ABG pCO2 POC ABG pO2 Sodium 146 H Potassium 2.9 L* 3.4 L Chloride Carbon Dioxide BUN 36 H Creatinine 0.7 L Glucose POC Glucose 111 H Lactic Acid Calcium 7.5 L Phosphorus Magnesium 1.60 L AST 76 H ALT 59 H Alkaline Phosphatase 294 H Troponin T C-Reactive Protein Total Protein 5.8 L Albumin 2.2 L LDL Cholesterol Direct HDL Cholesterol Urine Creatinine Hepatitis C Antibody Crossmatch Crossmatch [facility] 12/24/17 12/24/17 12/24/17 03:17 05:14 17:05 WBC RBC 3.03 L Hgb 7.6 L Hct 23.7 L MCV 78 L MCH 25 L MCHC RDW 17.8 H Plt Count Lymph % (Auto) [place] % (Auto) Eos % (Auto) Lymph # [place] # Eos # Baso # Seg Neutrophils % Seg Neuts % (Manual) Lymphocytes % (Manual) Monocytes % (Manual) Eosinophils % (Manual) Nucleated RBC % Seg Neutrophils # Seg Neutrophils # Man Lymphocytes # (Manual) Monocytes # (Manual) Eosinophils # (Manual) PT INR POC ABG pH POC ABG pCO2 POC ABG pO2 Sodium Potassium Chloride Carbon Dioxide BUN Creatinine Glucose POC Glucose 127 H 132 H Lactic Acid Calcium Phosphorus Magnesium AST ALT Alkaline Phosphatase Troponin T C-Reactive Protein Total Protein Albumin LDL Cholesterol Direct HDL Cholesterol Urine Creatinine Hepatitis C Antibody Crossmatch Crossmatch [facility] 12/25/17 12/25/17 12/25/17 00:03 04:34 06:25 WBC RBC Hgb Hct MCV MCH MCHC RDW Plt Count Lymph % (Auto) [place] % (Auto) Eos % (Auto) Lymph # [place] # Eos # Baso # Seg Neutrophils % Seg Neuts % (Manual) Lymphocytes % (Manual) Monocytes % (Manual) Eosinophils % (Manual) Nucleated RBC % Seg Neutrophils # Seg Neutrophils # Man Lymphocytes # (Manual) Monocytes # (Manual) Eosinophils # (Manual) PT INR POC ABG pH POC ABG pCO2 POC ABG pO2 Sodium Potassium Chloride Carbon Dioxide BUN 30 H Creatinine 0.6 L Glucose 114 H POC Glucose 128 H 136 H Lactic Acid Calcium 7.5 L Phosphorus Magnesium AST 84 H ALT 82 H Alkaline Phosphatase 322 H Troponin T C-Reactive Protein Total Protein 6.0 L Albumin 2.3 L LDL Cholesterol Direct HDL Cholesterol Urine Creatinine Hepatitis C Antibody Crossmatch Crossmatch [facility] 12/25/17 12/25/17 12/26/17 12:02 18:28 00:03 WBC RBC Hgb Hct MCV MCH MCHC RDW Plt Count Lymph % (Auto) [place] % (Auto) Eos % (Auto) Lymph # [place] # Eos # Baso # Seg Neutrophils % Seg Neuts % (Manual) Lymphocytes % (Manual) Monocytes % (Manual) Eosinophils % (Manual) Nucleated RBC % Seg Neutrophils # Seg Neutrophils # Man Lymphocytes # (Manual) Monocytes # (Manual) Eosinophils # (Manual) PT INR POC ABG pH POC ABG pCO2 POC ABG pO2 Sodium Potassium Chloride Carbon Dioxide BUN Creatinine Glucose POC Glucose 158 H 113 H 117 H Lactic Acid Calcium Phosphorus Magnesium AST ALT Alkaline Phosphatase Troponin T C-Reactive Protein Total Protein Albumin LDL Cholesterol Direct HDL Cholesterol Urine Creatinine Hepatitis C Antibody Crossmatch Crossmatch [facility] 12/26/17 12/26/17 12/26/17 04:26 06:35 08:47 WBC RBC Hgb Hct MCV MCH MCHC RDW Plt Count Lymph % (Auto) [place] % (Auto) Eos % (Auto) Lymph # [place] # Eos # Baso # Seg Neutrophils % Seg Neuts % (Manual) Lymphocytes % (Manual) Monocytes % (Manual) Eosinophils % (Manual) Nucleated RBC % Seg Neutrophils # Seg Neutrophils # Man Lymphocytes # (Manual) Monocytes # (Manual) Eosinophils # (Manual) PT INR POC ABG pH POC ABG pCO2 POC ABG pO2 Sodium Potassium 5.4 H D 3.3 L D Chloride Carbon Dioxide 21 L BUN 39 H Creatinine 0.7 L Glucose 121 H POC Glucose 122 H Lactic Acid Calcium 7.8 L Phosphorus Magnesium AST 144 H ALT 98 H Alkaline Phosphatase 330 H Troponin T C-Reactive Protein Total Protein 6.1 L Albumin 2.1 L LDL Cholesterol Direct HDL Cholesterol Urine Creatinine Hepatitis C Antibody Crossmatch Crossmatch [facility] 12/26/17 12/26/17 12/27/17 12:29 18:27 07:34 WBC RBC Hgb Hct MCV MCH MCHC RDW Plt Count Lymph % (Auto) [place] % (Auto) Eos % (Auto) Lymph # [place] # Eos # Baso # Seg Neutrophils % Seg Neuts % (Manual) Lymphocytes % (Manual) Monocytes % (Manual) Eosinophils % (Manual) Nucleated RBC % Seg Neutrophils # Seg Neutrophils # Man Lymphocytes # (Manual) Monocytes # (Manual) Eosinophils # (Manual) PT INR POC ABG pH POC ABG pCO2 POC ABG pO2 Sodium Potassium 3.1 L Chloride Carbon Dioxide BUN Creatinine 0.5 L Glucose POC Glucose 128 H 121 H Lactic Acid Calcium 7.7 L Phosphorus Magnesium AST 74 H ALT 80 H Alkaline Phosphatase 306 H Troponin T C-Reactive Protein Total Protein 6.1 L Albumin 2.1 L LDL Cholesterol Direct HDL Cholesterol Urine Creatinine Hepatitis C Antibody Crossmatch Crossmatch [facility] 12/27/17 12/28/17 12/28/17 07:34 04:59 04:59 WBC 11.1 H RBC 3.00 L Hgb 7.2 L Hct 23.6 L MCV 79 L MCH 24 L MCHC 31 L RDW 18.3 H Plt Count Lymph % (Auto) 10.0 L [place] % (Auto) 10.2 H Eos % (Auto) 6.7 H Lymph # 1.1 L [place] # 1.1 H Eos # 0.7 H Baso # Seg Neutrophils % 72.1 H Seg Neuts % (Manual) Lymphocytes % (Manual) Monocytes % (Manual) Eosinophils % (Manual) Nucleated RBC % Seg Neutrophils # 8.0 H Seg Neutrophils # Man Lymphocytes # (Manual) Monocytes # (Manual) Eosinophils # (Manual) PT INR POC ABG pH POC ABG pCO2 POC ABG pO2 Sodium Potassium Chloride Carbon Dioxide BUN Creatinine 0.4 L Glucose 102 H POC Glucose Lactic Acid Calcium 7.8 L Phosphorus Magnesium 1.30 L AST 58 H ALT 62 H Alkaline Phosphatase 274 H Troponin T C-Reactive Protein Total Protein 6.0 L Albumin 2.0 L LDL Cholesterol Direct HDL Cholesterol Urine Creatinine Hepatitis C Antibody Crossmatch Crossmatch [place] 12/28/17 12/29/17 12/29/17 18:06 04:02 04:02 WBC RBC Hgb Hct MCV MCH MCHC RDW Plt Count Lymph % (Auto) [place] % (Auto) Eos % (Auto) Lymph # [place] # Eos # Baso # Seg Neutrophils % Seg Neuts % (Manual) Lymphocytes % (Manual) Monocytes % (Manual) Eosinophils % (Manual) Nucleated RBC % Seg Neutrophils # Seg Neutrophils # Man Lymphocytes # (Manual) Monocytes # (Manual) Eosinophils # (Manual) PT INR POC ABG pH POC ABG pCO2 POC ABG pO2 Sodium Potassium Chloride Carbon Dioxide BUN Creatinine 0.5 L Glucose POC Glucose 107 H Lactic Acid Calcium 7.8 L Phosphorus Magnesium 1.40 L AST 50 H ALT Alkaline Phosphatase 311 H Troponin T C-Reactive Protein Total Protein 5.9 L Albumin 2.3 L LDL Cholesterol Direct HDL Cholesterol Urine Creatinine Hepatitis C Antibody Crossmatch Crossmatch [place] 12/29/17 12/29/17 12/30/17 12:10 17:33 04:46 WBC RBC Hgb Hct MCV MCH MCHC RDW Plt Count Lymph % (Auto) [place] % (Auto) Eos % (Auto) Lymph # [place] # Eos # Baso # Seg Neutrophils % Seg Neuts % (Manual) Lymphocytes % (Manual) Monocytes % (Manual) Eosinophils % (Manual) Nucleated RBC % Seg Neutrophils # Seg Neutrophils # Man Lymphocytes # (Manual) Monocytes # (Manual) Eosinophils # (Manual) PT INR POC ABG pH POC ABG pCO2 POC ABG pO2 Sodium Potassium Chloride Carbon Dioxide BUN Creatinine 0.5 L Glucose POC Glucose 124 H 108 H Lactic Acid Calcium 8.2 L Phosphorus Magnesium AST ALT Alkaline Phosphatase 288 H Troponin T C-Reactive Protein Total Protein Albumin 2.4 L LDL Cholesterol Direct HDL Cholesterol Urine Creatinine Hepatitis C Antibody Crossmatch Crossmatch [place] 12/30/17 12/31/17 12/31/17 04:46 04:03 04:03 WBC RBC Hgb Hct MCV MCH MCHC RDW Plt Count Lymph % (Auto) [place] % (Auto) Eos % (Auto) Lymph # [place] # Eos # Baso # Seg Neutrophils % Seg Neuts % (Manual) Lymphocytes % (Manual) Monocytes % (Manual) Eosinophils % (Manual) Nucleated RBC % Seg Neutrophils # Seg Neutrophils # Man Lymphocytes # (Manual) Monocytes # (Manual) Eosinophils # (Manual) PT INR POC ABG pH POC ABG pCO2 POC ABG pO2 Sodium Potassium Chloride Carbon Dioxide BUN Creatinine 0.4 L Glucose 103 H POC Glucose Lactic Acid Calcium 8.1 L Phosphorus Magnesium 1.50 L 1.30 L AST ALT Alkaline Phosphatase Troponin T C-Reactive Protein Total Protein Albumin LDL Cholesterol Direct HDL Cholesterol Urine Creatinine Hepatitis C Antibody Crossmatch Crossmatch [place] 12/31/17 12/31/17 01/01/18 16:56 23:55 04:26 WBC RBC Hgb Hct MCV MCH MCHC RDW Plt Count Lymph % (Auto) [place] % (Auto) Eos % (Auto) Lymph # [place] # Eos # Baso # Seg Neutrophils % Seg Neuts % (Manual) Lymphocytes % (Manual) Monocytes % (Manual) Eosinophils % (Manual) Nucleated RBC % Seg Neutrophils # Seg Neutrophils # Man Lymphocytes # (Manual) Monocytes # (Manual) Eosinophils # (Manual) PT INR POC ABG pH POC ABG pCO2 POC ABG pO2 Sodium Potassium 3.5 L Chloride Carbon Dioxide BUN Creatinine 0.3 L Glucose 105 H POC Glucose 106 H 108 H Lactic Acid Calcium 7.9 L Phosphorus Magnesium AST ALT Alkaline Phosphatase Troponin T C-Reactive Protein Total Protein Albumin LDL Cholesterol Direct HDL Cholesterol Urine Creatinine Hepatitis C Antibody Crossmatch Crossmatch [place] 01/01/18 01/01/18 01/02/18 04:26 05:26 03:45 WBC RBC 3.07 L Hgb 7.6 L Hct 24.1 L MCV 78 L MCH 25 L MCHC 31 L RDW 18.2 H Plt Count Lymph % (Auto) [place] % (Auto) Eos % (Auto) Lymph # [place] # Eos # Baso # Seg Neutrophils % Seg Neuts % (Manual) 72.0 H Lymphocytes % (Manual) 13.0 L Monocytes % (Manual) Eosinophils % (Manual) 7.0 H Nucleated RBC % 1.0 H Seg Neutrophils # Seg Neutrophils # Man Lymphocytes # (Manual) Monocytes # (Manual) Eosinophils # (Manual) 0.7 H PT INR POC ABG pH POC ABG pCO2 POC ABG pO2 Sodium 134 L Potassium Chloride Carbon Dioxide BUN Creatinine 0.4 L Glucose POC Glucose 107 H Lactic Acid Calcium 8.1 L Phosphorus Magnesium AST ALT Alkaline Phosphatase Troponin T C-Reactive Protein Total Protein Albumin LDL Cholesterol Direct HDL Cholesterol Urine Creatinine Hepatitis C Antibody Crossmatch Crossmatch [place] 01/02/18 01/03/18 01/04/18 03:45 12:15 00:25 WBC 13.1 H RBC 3.17 L Hgb 7.5 L Hct 24.8 L MCV 78 L MCH 24 L MCHC 31 L RDW 18.2 H Plt Count Lymph % (Auto) 11.0 L [place] % (Auto) 8.8 H Eos % (Auto) Lymph # [place] # 1.2 H Eos # 0.5 H Baso # 0.2 H Seg Neutrophils % 74.7 H Seg Neuts % (Manual) Lymphocytes % (Manual) Monocytes % (Manual) Eosinophils % (Manual) Nucleated RBC % Seg Neutrophils # 9.8 H Seg Neutrophils # Man Lymphocytes # (Manual) Monocytes # (Manual) Eosinophils # (Manual) PT INR POC ABG pH POC ABG pCO2 POC ABG pO2 Sodium Potassium Chloride Carbon Dioxide BUN Creatinine Glucose POC Glucose 137 H < 40 L Lactic Acid Calcium Phosphorus Magnesium AST ALT Alkaline Phosphatase Troponin T C-Reactive Protein Total Protein Albumin LDL Cholesterol Direct HDL Cholesterol Urine Creatinine Hepatitis C Antibody Crossmatch Crossmatch [place] 01/04/18 01/04/18 01/06/18 04:31 12:52 04:42 WBC 11.1 H 11.8 H RBC 3.18 L 3.05 L Hgb 7.7 L 7.4 L Hct 24.8 L 23.7 L MCV 78 L 78 L MCH 24 L 24 L MCHC 31 L 31 L RDW 18.4 H 18.7 H Plt Count Lymph % (Auto) 9.2 L [place] % (Auto) 7.6 H Eos % (Auto) Lymph # 1.1 L [place] # 0.9 H Eos # 0.5 H Baso # Seg Neutrophils % 78.0 H Seg Neuts % (Manual) Lymphocytes % (Manual) Monocytes % (Manual) Eosinophils % (Manual) Nucleated RBC % Seg Neutrophils # 9.2 H Seg Neutrophils # Man Lymphocytes # (Manual) Monocytes # (Manual) Eosinophils # (Manual) PT INR POC ABG pH POC ABG pCO2 POC ABG pO2 Sodium Potassium Chloride Carbon Dioxide 19 L BUN Creatinine 0.3 L Glucose 47 L POC Glucose Lactic Acid Calcium 8.0 L Phosphorus Magnesium AST ALT Alkaline Phosphatase Troponin T C-Reactive Protein Total Protein Albumin LDL Cholesterol Direct HDL Cholesterol Urine Creatinine Hepatitis C Antibody Crossmatch Crossmatch [place] 01/06/18 01/07/18 04:42 07:29 WBC RBC Hgb Hct MCV MCH MCHC RDW Plt Count Lymph % (Auto) [place] % (Auto) Eos % (Auto) Lymph # [place] # Eos # Baso # Seg Neutrophils % Seg Neuts % (Manual) Lymphocytes % (Manual) Monocytes % (Manual) Eosinophils % (Manual) Nucleated RBC % Seg Neutrophils # Seg Neutrophils # Man Lymphocytes # (Manual) Monocytes # (Manual) Eosinophils # (Manual) PT INR POC ABG pH POC ABG pCO2 POC ABG pO2 Sodium 133 L Potassium Chloride Carbon Dioxide 20 L BUN Creatinine 0.3 L Glucose POC Glucose 110 H Lactic Acid Calcium 8.0 L Phosphorus Magnesium AST ALT Alkaline Phosphatase Troponin T C-Reactive Protein Total Protein Albumin LDL Cholesterol Direct HDL Cholesterol Urine Creatinine Hepatitis C Antibody Crossmatch Crossmatch [facility]
[2018-01-07] MEDS: PREVACID SOLUTAB FEEDTUBE SCH ×2 (10:04→22:51)
[2018-01-07] MEDS: POTASSIUM CHLORIDE FEEDTUBE SCH ×2 (10:04→22:51)
[2018-01-07] MEDS: LOPRESSOR PO SCH ×2 (10:05→22:49)
[2018-01-07] MEDS: MAG-OX PO SCH ×2 (10:05→22:49)
[2018-01-07] MEDS: NACL 0.45% 1000 ML 1,000 ML IV SCH (12:26)
--- NOTE | 2018-01-07 13:55 | Event Note ---
Date: 01/07/[address] Noble. The patient still has fluid collections in the abdomen. Plan would be to drain them. Afterwards, can consider either IR gastrostomy tube or GI gastrostomy tube placement and subsequent conversion to a GJ tube in 2 weeks.
--- NOTE | 2018-01-07 14:34 | Progress Note ---
Assessment and Plan - Patient Problems (1) Gastrostomy malfunction Current Visit: Yes Status: Acute Plan to address problem: Pt is stable. After reviewing the records, discussing the case with multiple attendings, and seeing the patient, it is clear that we do not have an acute perforation. Most likely, the PEG tube started to migrate out of position prior to 11/18 as evidenced by no PEG button seen on EGD and no obvious hole in the stomach. As the contrast is restricted to certain areas in the abdomen, the fluid is loculated. The "ascites" may be tube feeds and/or reactionary fluid. Regardless, patient is not showing signs of obvious peritonitis. In this case, it may be prudent to try placing a few drains in the abdomen to remove that largest collections. I have already discussed this case with Dr. Moreira who agreed to review the case and see if that was possible. The alternative would be to take the patient for an ex-lap and washout the abdomen. I'm concerned that there may be a lot of inflammatory changes in the abdomen which would put him at risk for bowel injuries from the procedure. Therefore, this will be our back-up plan if the drains do not resolve the problem. As for nutritional access , for now, I would recommend an NGT. I doubt he has an active leak, so there is no need to test the stomach prior to using it. I have explained this plan in detail to the daughter (Jannette) and the attendings from ICU, GI, and hospitalist service. All were in agreement. - 11/25/17 Initial Consult Pt appears stable. s/p dx lap and washout - 12/03 POD#35. Pt stable. ODALYS drain removed today. I reviewed the CT in detail and discussed the case with Dr. Palmer. Here are my thoughts... 1) I think that the current ODALYS won't help if there is a leak from the stomach as they are not in close proximity. Therefore, the ODALYS was pulled. 2) The pelvis fluid collection seems to be in continuity with the side collections. Therefore, draining the pelvic may be very beneficial. 3) The fluid collection under the stomach, seems chronic now as there are no inflammatory changes around it, it has a well defined wall, and may be smaller now. I don't believe this will get in the way of the G-tube. If they are able to aspirate it, that would be great, but not mandatory. 4) I think we should try to place a feeding tube now as he is no longer septic, WBC has been stable, we are not having to deal with fevers, he has been tolerating the tube feeds and having bowel movements. This may be the best he is going to get. Would leave surgical incisions open to air. Please call with questions. Will follow along peripherally. Time=15min Subjective Date of service: 01/07/18 Patient Reports: Positive: other (no new events per staff) Objective Vital Signs - 12hr 01/07/18 01/07/18 01/07/18 03:00 03:56 03:59 Temperature 98.9 F Pulse Rate 113 H Pulse Rate [ 115 H Right From Monitor] Respiratory 21 30 H Rate Blood Pressure 128/84 O2 Sat by Pulse 98 100 Oximetry O2 Sat by Pulse Oximetry [ Assessment] 01/07/18 01/07/18 01/07/18 04:00 04:01 05:01 Temperature Pulse Rate 113 H 116 H Pulse Rate [ Right From Monitor] Respiratory 22 26 H Rate Blood Pressure 134/86 142/97 O2 Sat by Pulse 100 99 Oximetry O2 Sat by Pulse 100 Oximetry [ Assessment] 01/07/18 01/07/18 01/07/18 06:00 07:01 08:00 Temperature 97.8 F Pulse Rate 112 H 116 H 110 H Pulse Rate [ 109 H Right From Monitor] Respiratory 29 H 26 H 21 Rate Blood Pressure 152/91 158/94 148/88 O2 Sat by Pulse 100 100 Oximetry O2 Sat by Pulse 100 Oximetry [ Assessment] 01/07/18 01/07/18 01/07/18 09:01 09:09 10:00 Temperature Pulse Rate 111 H 101 H Pulse Rate [ Right From Monitor] Respiratory 25 H Rate Blood Pressure 157/94 O2 Sat by Pulse 100 Oximetry O2 Sat by Pulse Oximetry [ Assessment] 01/07/18 01/07/18 01/07/18 10:01 10:05 11:00 Temperature Pulse Rate 108 H 113 H 100 H Pulse Rate [ Right From Monitor] Respiratory 16 28 H Rate Blood Pressure 161/89 161/89 159/98 O2 Sat by Pulse 100 Oximetry O2 Sat by Pulse Oximetry [ Assessment] 01/07/18 01/07/18 01/07/18 12:00 13:01 14:01 Temperature 98.4 F Pulse Rate 97 H 109 H 106 H Pulse Rate [ 109 H Right From Monitor] Respiratory 21 27 H 25 H Rate Blood Pressure 155/92 162/97 160/93 O2 Sat by Pulse 100 Oximetry O2 Sat by Pulse Oximetry [ Assessment] - General physical appearance no distress, no pain - Respiratory normal expansion, normal respiratory effort - Abdomen soft, not distended, not guarding, not rigid, other (minimal drainage in ODALYS - yellowish) - Integumentary no rash, no growths, no abnormal pigmentation - Labs 01/06/18 04:42 01/06/18 04:42
--- NOTE | 2018-01-07 19:27 | Progress Note ---
Assessment and Plan Assessment and plan: Mr. 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 He had a Carotid doppler done that revealed a right ICA 50-79% stenosis. CTA of the neck revealed 80% stenosis of the right ICA with probable 50% stenosis of the origin of the right common carotid artery. His symptoms were thought to be due to the Carotid artery stenosis which was disheartening since he was on Aspirin and plavix. He was scheduled for right CEA but needed Cardiac clearance. He underwent stress test on 10/05/17 and Pin Game Machine Inspector stated he was stable for non-cardiac history, low to moderate perioperative risk. So, he underwent right carotid enarterectomy on 10/09/17. Following the surgery, he developed recurrent left sided weakness/hemiparesis and was taken back to the OR on 10/10/17 for Open Thrombectomy of Right Internal Carotid Artery and Injection of tPA into the Artery. CT head obtained 2 days after surgery on 10/12 showed massive right cerebral hemisphere acute CVA with midline shift. He was subsequently discharged on 11/10/17 to [facility] but returned to [facility] ED and was re-admitted on 11/12/17 for suspected sepsis due to Aspiration post-obstructive pneumonia with suspected mucus plug and subsequently intubated on admission. On 11/20/17, patient went for Tracheostomy by Dr. Hughes, ENT. Then on 11/21/17 patient went into shock, most likely sepsis as WBC went up to 38.2k; initially thought to be due worsening aspiration pneumonia but it was discovered that he had a dislodged PEG tube from the Nursing, most likely present on admission, which lead to the shock from severe intra-abdominal infection/ peritonitis requiring IR drainage and General surgery drainage. Assessment and plan --Peritonitis: from dislodged peg tube s/pcomplete course of antibiotics, Multiple surgical procedures with intra- abdominal drainage placement IR and surgery evaluated the patient, Continue current management, awaiting for wound healing Possible new peg placement when output of the drains, improved and clears, discussed his surgeon today --Acute hypoxic respiratory failure; requiring mechanical ventilation more than 96% Status post tracheostomy, continue trach care, nebulizers, oxygen --Aspiration pneumonia; received complete treatment, resolved --Acute kidney injury; secondary to ATN Requiring intermittent dialysis as needed --Chronic anemia; received total 3 units of PRBC, closely monitor H&H transfuse as needed --Hypernatremia/hypokalemia/hypomagnesemia; Closely monitor electrolytes and adjust as needed --History of carotid endarterectomy; supportive care --Metabolic encephalopathy; supportive care --Severe malnutrition; nutrition supplements and feeding --DVT prophylaxis; SCDs --Full CODE STATUS Patient is critically ill, recommend hospice Consults and recommendations noted DC planning per case management LTAC declined admission KILEY is daughter, Eugenie [phone], ct abd/pelvis ordered History Interval history: Patient was seen and examined. following command on the right Hospitalist Physical - Physical exam Narrative exam: General appearance: Present: no acute distress, cachectic, disheveled, other ( tracheostomy on T piece) - EENT Eyes: Present: PERRL, EOM intact - Neck Neck: Present: supple, other (tracheostomy on T piece) - Respiratory Respiratory effort: normal Respiratory: bilateral: diminished, rhonchi, negative: wheezing - Cardiovascular Rhythm: regular Heart Sounds: Present: S1 & S2 - Extremities Extremities: no ischemia Extremity abnormal: edema - Abdominal General gastrointestinal: soft, non-tender, non-distended, other (drainage tube in place with collection of fluid) - Integumentary Integumentary: Present: clear, warm - Psychiatric Psychiatric: other (unresponsive) - Neurologic Neurologic: other (noncommunicative) - Constitutional Vitals: Temp Pulse Resp BP Pulse Ox 97.5 F L 111 H 30 H 157/101 97 01/07/18 16:00 01/07/18 18:00 01/07/18 18:00 01/07/18 18:00 01/07/18 18:00 General appearance: Present: no acute distress, cachectic, disheveled, other ( tracheostomy on T piece) Results - Labs CBC & Chem 7: 01/08/18 04:12 01/08/18 04:12 Labs: Laboratory Last Values WBC 11.8 K/mm3 (4.5-11.0) H 01/06/18 04:42 RBC 3.05 M/mm3 (3.65-5.03) L 01/06/18 04:42 Hgb 7.4 gm/dl (11.8-15.2) L 01/06/18 04:42 Hct 23.7 % (35.5-45.6) L 01/06/18 04:42 MCV 78 fl (84-94) L 01/06/18 04:42 MCH 24 pg (28-32) L 01/06/18 04:42 MCHC 31 % (32-34) L 01/06/18 04:42 RDW 18.7 % (13.2-15.2) H 01/06/18 04:42 Plt Count 199 K/mm3 (140-440) 01/06/18 04:42 Lymph % (Auto) 9.2 % (13.4-35.0) L 01/06/18 04:42 [place] % (Auto) 7.6 % (0.0-7.3) H 01/06/18 04:42 Eos % (Auto) 4.0 % (0.0-4.3) 01/06/18 04:42 Baso % (Auto) 1.2 % (0.0-1.8) 01/06/18 04:42 Lymph # 1.1 K/mm3 (1.2-5.4) L 01/06/18 04:42 [place] # 0.9 K/mm3 (0.0-0.8) H 01/06/18 04:42 Eos # 0.5 K/mm3 (0.0-0.4) H 01/06/18 04:42 Baso # 0.1 K/mm3 (0.0-0.1) 01/06/18 04:42 Add Manual Diff Complete 01/01/18 04:26 Total Counted 100 01/01/18 04:26 Seg Neutrophils % 78.0 % (40.0-70.0) H 01/06/18 04:42 Seg Neuts % (Manual) 72.0 % (40.0-70.0) H 01/01/18 04:26 Band Neutrophils % 0 % 01/01/18 04:26 Lymphocytes % (Manual) 13.0 % (13.4-35.0) L 01/01/18 04:26 Reactive Lymphs % (Man) 0 % 01/01/18 04:26 Monocytes % (Manual) 7.0 % (0.0-7.3) 01/01/18 04:26 Eosinophils % (Manual) 7.0 % (0.0-4.3) H 01/01/18 04:26 Basophils % (Manual) 1.0 % (0.0-1.8) 01/01/18 04:26 Metamyelocytes % 0 % 01/01/18 04:26 Myelocytes % 0 % 01/01/18 04:26 Promyelocytes % 0 % 01/01/18 04:26 Blast Cells % 0 % 01/01/18 04:26 Nucleated RBC % 1.0 % (0.0-0.9) H 01/01/18 04:26 Seg Neutrophils # 9.2 K/mm3 (1.8-7.7) H 01/06/18 04:42 Seg Neutrophils # Man 7.5 K/mm3 (1.8-7.7) 01/01/18 04:26 Band Neutrophils # 0.0 K/mm3 01/01/18 04:26 Lymphocytes # (Manual) 1.4 K/mm3 (1.2-5.4) 01/01/18 04:26 Abs React Lymphs (Man) 0.0 K/mm3 01/01/18 04:26 Monocytes # (Manual) 0.7 K/mm3 (0.0-0.8) 01/01/18 04:26 Eosinophils # (Manual) 0.7 K/mm3 (0.0-0.4) H 01/01/18 04:26 Basophils # (Manual) 0.1 K/mm3 (0.0-0.1) 01/01/18 04:26 Metamyelocytes # 0.0 K/mm3 01/01/18 04:26 Myelocytes # 0.0 K/mm3 01/01/18 04:26 Promyelocytes # 0.0 K/mm3 01/01/18 04:26 Blast Cells # 0.0 K/mm3 01/01/18 04:26 WBC Morphology Not Reportable 01/01/18 04:26 Hypersegmented Neuts Not Reportable 01/01/18 04:26 Hyposegmented Neuts Not Reportable 01/01/18 04:26 Hypogranular Neuts Not Reportable 01/01/18 04:26 Smudge Cells Not Reportable 01/01/18 04:26 Toxic Granulation Not Reportable 01/01/18 04:26 Toxic Vacuolation Not Reportable 01/01/18 04:26 Dohle Bodies Not Reportable 01/01/18 04:26 Pelger-Huet Anomaly Not Reportable 01/01/18 04:26 Evangelina Rods Not Reportable 01/01/18 04:26 Platelet Estimate Consistent w auto 01/01/18 04:26 Clumped Platelets Not Reportable 01/01/18 04:26 Plt Clumps, EDTA Not Reportable 01/01/18 04:26 Large Platelets Not Reportable 01/01/18 04:26 Giant Platelets Not Reportable 01/01/18 04:26 Platelet Satelliting Not Reportable 01/01/18 04:26 Plt Morphology Comment Not Reportable 01/01/18 04:26 RBC Morphology Not Reportable 01/01/18 04:26 Dimorphic RBCs Not Reportable 01/01/18 04:26 Polychromasia Not Reportable 01/01/18 04:26 Hypochromasia Not Reportable 01/01/18 04:26 Poikilocytosis Not Reportable 01/01/18 04:26 Anisocytosis 1+ 01/01/18 04:26 Microcytosis Not Reportable 01/01/18 04:26 Macrocytosis Not Reportable 01/01/18 04:26 Spherocytes Not Reportable 01/01/18 04:26 Pappenheimer Bodies Not Reportable 01/01/18 04:26 Sickle Cells Not Reportable 01/01/18 04:26 Target Cells Not Reportable 01/01/18 04:26 Tear Drop Cells Not Reportable 01/01/18 04:26 Ovalocytes Not Reportable 01/01/18 04:26 Stomatocytes Few 01/01/18 04:26 Helmet Cells Not Reportable 01/01/18 04:26 Dukes-Castor Bodies Not Reportable 01/01/18 04:26 [place] Rings Not Reportable 01/01/18 04:26 [place] Cells Not Reportable 01/01/18 04:26 Bite Cells Not Reportable 01/01/18 04:26 Crenated Cell Not Reportable 01/01/18 04:26 Elliptocytes Not Reportable 01/01/18 04:26 Acanthocytes (Spur) Not Reportable 01/01/18 04:26 Rouleaux Not Reportable 01/01/18 04:26 Hemoglobin C Crystals Not Reportable 01/01/18 04:26 Schistocytes Not Reportable 01/01/18 04:26 Malaria parasites Not Reportable 01/01/18 04:26 [place] Bodies Not Reportable 01/01/18 04:26 Hem Pathologist Commnt No 01/01/18 04:26 PT 15.4 Sec. (12.2-14.9) H 12/14/17 05:11 INR 1.17 (0.87-1.13) H 12/14/17 05:11 APTT 33.8 Sec. (24.2-36.6) 11/26/17 06:29 POC ABG pH 7.505 (7.35-7.45) H 11/23/17 04:56 POC ABG pCO2 26.3 (35-45) L 11/23/17 04:56 POC ABG pO2 100 (80-105) 11/23/17 04:56 POC ABG HCO3 20.8 11/23/17 04:56 POC ABG Total CO2 22 11/23/17 04:56 POC ABG O2 Sat 98 11/23/17 04:56 POC ABG Base Excess -2 11/23/17 04:56 FiO2 30 % 11/23/17 04:56 Sodium 133 mmol/L (137-145) L 01/06/18 04:42 Potassium 4.5 mmol/L (3.6-5.0) 01/06/18 04:42 Chloride 100.7 mmol/L (98-107) 01/06/18 04:42 Carbon Dioxide 20 mmol/L (22-30) L 01/06/18 04:42 Anion Gap 17 mmol/L 01/06/18 04:42 BUN 10 mg/dL (9-20) 01/06/18 04:42 Creatinine 0.3 mg/dL (0.8-1.5) L 01/06/18 04:42 Estimated GFR > 60 ml/min 01/06/18 04:42 BUN/Creatinine Ratio 33 % 01/06/18 04:42 Glucose 100 mg/dL (75-100) 01/06/18 04:42 POC Glucose 101 (70-105) 01/07/18 17:16 Lactic Acid 1.80 mmol/L (0.7-2.0) 11/27/17 04:06 Calcium 8.0 mg/dL (8.4-10.2) L 01/06/18 04:42 Phosphorus 3.40 mg/dL (2.5-4.5) 01/02/18 03:45 Magnesium 1.70 mg/dL (1.7-2.3) 01/02/18 03:45 Total Bilirubin 0.30 mg/dL (0.1-1.2) 12/30/17 04:46 AST 37 units/L (5-40) 12/30/17 04:46 ALT 48 units/L (7-56) 12/30/17 04:46 Alkaline Phosphatase 288 units/L (35-129) H 12/30/17 04:46 Total Creatine Kinase 84 units/L (55-170) 11/12/17 20:03 CK-MB (CK-2) < 1.0 ng/mL (0.0-4.0) 11/12/17 20:03 CK-MB (CK-2) Rel Index 1.1 (0-4) 11/12/17 20:03 Troponin T 0.098 ng/mL (0.00-0.029) H 11/12/17 Unknown C-Reactive Protein 25.70 mg/dL (0.00-1.30) H 11/11/17 23:20 NT-Pro-B Natriuret Pep 792.4 pg/mL (0-900) 11/11/17 23:20 Total Protein 6.6 g/dL (6.3-8.2) 12/30/17 04:46 Albumin 2.4 g/dL (3.9-5) L 12/30/17 04:46 Albumin/Globulin Ratio 0.6 % 12/30/17 04:46 Triglycerides 86 mg/dL (2-149) 11/11/17 23:20 Cholesterol 82 mg/dL (50-199) 11/11/17 23:20 LDL Cholesterol Direct 42 mg/dL (50-130) L 11/11/17 23:20 HDL Cholesterol 24 mg/dL (40-59) L 11/11/17 23:20 Cholesterol/HDL Ratio 3.41 % 11/11/17 23:20 Lipase 30 units/L (13-60) 11/11/17 23:20 Urine Color Nicole (Yellow) 11/11/17 23:09 Urine Turbidity Cloudy (Clear) 11/11/17 23:09 Urine pH 5.0 (5.0-7.0) 11/11/17 23:09 Ur Specific [place] 1.025 (1.003-1.030) 11/11/17 23:09 Urine Protein 100 mg/dl mg/dL (Negative) 11/11/17 23:09 Urine Glucose (UA) 50 mg/dL (Negative) 11/11/17 23:09 Urine Ketones Neg mg/dL (Negative) 11/11/17 23:09 Urine Blood Neg (Negative) 11/11/17 23:09 Urine Nitrite Neg (Negative) 11/11/17 23:09 Urine Bilirubin Neg (Negative) 11/11/17 23:09 Urine Urobilinogen 4.0 mg/dL (<2.0) 11/11/17 23:09 Ur Leukocyte Esterase Neg (Negative) 11/11/17 23:09 Urine WBC (Auto) 5.0 /HPF (0.0-6.0) 11/11/17 23:09 Urine RBC (Auto) 4.0 /HPF (0.0-6.0) 11/11/17 23:09 Urine Bacteria (Auto) 3+ /HPF (Negative) 11/11/17 23:09 Amorphous Crystals 3+ 11/11/17 23:09 Hyaline Casts 76 /LPF 11/11/17 23:09 Urine Mucus 2+ /HPF 11/11/17 23:09 Urine Total Volume 1350 12/22/17 10:50 Urine Creatinine 55.8 mg/dL (0.1-20.0) H 12/22/17 10:50 Ur Creatinine 24 Hour 0.8 (0.8-2.8) 12/22/17 10:50 Hepatitis A IgM Ab Non-reactive (NonReactive) 11/22/17 19:45 Hep Bs Antigen Non-reactive (Negative) 11/22/17 19:45 Hep B Core IgM Ab Non-reactive (NonReactive) 11/22/17 19:45 Hepatitis C Antibody Reactive (NonReactive) A 11/22/17 19:45 Blood Type A POSITIVE 12/16/17 13:01 Antibody Screen Positive 12/16/17 13:01 SANTANA Antibody Screen Cancelled 12/16/17 13:01 Antibody Identification Cold Antibody 12/16/17 13:01 Crossmatch See Detail 12/16/17 13:01 Crossmatch Prewarmed See Detail 12/16/17 13:01
[2018-01-08] MEDS: NACL 0.45% 1000 ML 1,000 ML IV SCH ×2 (00:45→17:55)
[2018-01-08 05:04] LABS: Hematocrit 24.4 % (35.5-45.6); Hemoglobin 7.4 gm/dl (11.8-15.2); Mean Corpuscular HGB Conc 31 % (32-34); Mean Corpuscular Volume 79 fl (84-94); Platelet Count 214 K/mm3 (140-440); Red Blood Count 3.11 M/mm3 (3.65-5.03); Red Cell Distribution Width 18.4 % (13.2-15.2)
[2018-01-08 05:06] LABS: Mean Corpuscular Hemoglobin 24 pg (28-32)
[2018-01-08 05:37] LABS: BUN/Creatinine Ratio 30; Blood Urea Nitrogen 9 mg/dL (9-20); Calcium 8.3 mg/dL (8.4-10.2); Hemolysis Index 14
[2018-01-08] MEDS ORDERED: XYLOCAINE 1% 20 mL ONE (08:58)
--- NOTE | 2018-01-08 09:16 | Progress Note ---
Assessment and Plan s/p Acute respiratory failure. More coarse secretions this morning. Needs suctioning Trach. patient Sepsis,post PEG related spillage or peritonitis. Loculations still seen on f/u Abd CT. scheduled for drainage by IR consult Stroke ESRD s/p carotid endarterectomy Recommendations Continue with nebs and suction given Further interventions per surgery,IR Tracheal suctioning as needed Nutritional support. Physical therapy DVT prophylaxis Discussed with staff. No family at the bedside Subjective Date of service: 01/08/18 Principal diagnosis: Acute hypoxic respiratory failure, s/p Trach,peritoneal leak,loculations Interval history: Awake otherwise not following commands today Objective Vital Signs - 12hr 01/07/18 01/07/18 01/07/18 22:00 22:49 23:00 Temperature Pulse Rate 102 H 105 H 100 H Pulse Rate [ Right From Monitor] Respiratory 27 H 25 H Rate Blood Pressure 163/92 163/92 156/86 O2 Sat by Pulse 100 100 Oximetry O2 Sat by Pulse Oximetry [ Assessment] 01/07/18 01/07/18 01/08/18 23:25 23:27 00:00 Temperature 97.8 F Pulse Rate 97 H Pulse Rate [ 98 H Right From Monitor] Respiratory 24 23 Rate Blood Pressure 156/86 O2 Sat by Pulse 100 99 Oximetry O2 Sat by Pulse 100 Oximetry [ Assessment] 01/08/18 01/08/18 01/08/18 00:01 01:00 02:00 Temperature Pulse Rate 98 H 94 H 82 Pulse Rate [ Right From Monitor] Respiratory 25 H 23 21 Rate Blood Pressure 153/94 152/90 157/85 O2 Sat by Pulse 100 100 100 Oximetry O2 Sat by Pulse Oximetry [ Assessment] 01/08/18 01/08/18 01/08/18 02:58 03:01 03:16 Temperature 98.5 F Pulse Rate 94 H Pulse Rate [ Right From Monitor] Respiratory 18 Rate Blood Pressure 159/86 O2 Sat by Pulse 100 Oximetry O2 Sat by Pulse 100 Oximetry [ Assessment] 01/08/18 01/08/18 01/08/18 04:00 05:01 06:01 Temperature Pulse Rate 92 H 101 H 105 H Pulse Rate [ 98 H Right From Monitor] Respiratory 22 20 24 Rate Blood Pressure 157/94 130/82 158/87 O2 Sat by Pulse 99 97 96 Oximetry O2 Sat by Pulse Oximetry [ Assessment] 01/08/18 01/08/18 01/08/18 07:12 07:14 07:52 Temperature 98.9 F Pulse Rate Pulse Rate [ Right From Monitor] Respiratory Rate Blood Pressure O2 Sat by Pulse 100 Oximetry O2 Sat by Pulse 98 Oximetry [ Assessment] Constitutional: no acute distress Eyes: non-icteric ENT: oropharynx moist, other (trach in position, no bleeding) Neck: no JVD Effort: normal Ascultation: Bilateral: clear, diminished breath sounds, rales (sporadic) Cardiovascular: regular rate and rhythm Gastrointestinal: normoactive bowel sounds, soft, non-tender, other (drains removed) Integumentary: normal Extremities: no cyanosis, pink and warm, no ischemia or petechiae Neurologic: other (L hemiparesis, ) Psychiatric: other (unable to assess) CBC and BMP: 01/08/18 04:12 01/08/18 04:12 ABG, PT/INR, D-dimer: ABG POC ABG pH 7.505 (7.35-7.45) H 11/23/17 04:56 POC ABG pCO2 26.3 (35-45) L 11/23/17 04:56 POC ABG pO2 100 (80-105) 11/23/17 04:56 POC ABG HCO3 20.8 11/23/17 04:56 POC ABG Total CO2 22 11/23/17 04:56 POC ABG O2 Sat 98 11/23/17 04:56 PT/INR, D-dimer PT 15.4 Sec. (12.2-14.9) H 12/14/17 05:11 INR 1.17 (0.87-1.13) H 12/14/17 05:11 Abnormal lab findings: Abnormal Labs 11/11/17 11/11/17 11/11/17 23:18 23:20 23:20 WBC RBC Hgb 10.4 L Hct 32.6 L D MCV MCH 27 L MCHC RDW 17.4 H Plt Count 105 L Lymph % (Auto) [place] % (Auto) Eos % (Auto) Lymph # [place] # Eos # Baso # Seg Neutrophils % Seg Neuts % (Manual) Lymphocytes % (Manual) 8.0 L Monocytes % (Manual) Eosinophils % (Manual) Nucleated RBC % 1.0 H Seg Neutrophils # Seg Neutrophils # Man Lymphocytes # (Manual) 0.7 L Monocytes # (Manual) Eosinophils # (Manual) PT INR POC ABG pH 7.550 H POC ABG pCO2 31.6 L POC ABG pO2 Sodium 146 H Potassium Chloride Carbon Dioxide BUN 26 H Creatinine 1.7 H D Glucose 133 H POC Glucose Lactic Acid Calcium Phosphorus Magnesium AST ALT Alkaline Phosphatase Troponin T 0.117 H* C-Reactive Protein Total Protein Albumin 2.5 L LDL Cholesterol Direct 42 L HDL Cholesterol 24 L Urine Creatinine Hepatitis C Antibody Crossmatch Crossmatch [place] 11/11/17 11/12/17 11/12/17 23:20 00:23 00:23 WBC RBC Hgb Hct MCV MCH MCHC RDW Plt Count Lymph % (Auto) [place] % (Auto) Eos % (Auto) Lymph # [place] # Eos # Baso # Seg Neutrophils % Seg Neuts % (Manual) Lymphocytes % (Manual) Monocytes % (Manual) Eosinophils % (Manual) Nucleated RBC % Seg Neutrophils # Seg Neutrophils # Man Lymphocytes # (Manual) Monocytes # (Manual) Eosinophils # (Manual) PT 16.7 H INR 1.28 H POC ABG pH POC ABG pCO2 POC ABG pO2 Sodium Potassium Chloride Carbon Dioxide BUN Creatinine Glucose POC Glucose Lactic Acid 3.20 H* Calcium Phosphorus Magnesium AST ALT Alkaline Phosphatase Troponin T C-Reactive Protein 25.70 H Total Protein Albumin LDL Cholesterol Direct HDL Cholesterol Urine Creatinine Hepatitis C Antibody Crossmatch Crossmatch [place] 11/12/17 11/12/17 11/12/17 00:46 01:27 01:27 WBC RBC Hgb Hct MCV MCH MCHC RDW Plt Count Lymph % (Auto) [place] % (Auto) Eos % (Auto) Lymph # [place] # Eos # Baso # Seg Neutrophils % Seg Neuts % (Manual) Lymphocytes % (Manual) Monocytes % (Manual) Eosinophils % (Manual) Nucleated RBC % Seg Neutrophils # Seg Neutrophils # Man Lymphocytes # (Manual) Monocytes # (Manual) Eosinophils # (Manual) PT INR POC ABG pH 7.495 H POC ABG pCO2 32.0 L POC ABG pO2 64 L Sodium Potassium Chloride Carbon Dioxide BUN Creatinine Glucose POC Glucose Lactic Acid 3.70 H* Calcium Phosphorus Magnesium AST ALT Alkaline Phosphatase Troponin T 0.096 H C-Reactive Protein Total Protein Albumin LDL Cholesterol Direct HDL Cholesterol Urine Creatinine Hepatitis C Antibody Crossmatch Crossmatch [place] 11/12/17 11/12/17 11/12/17 03:21 04:50 06:27 WBC RBC Hgb Hct MCV MCH MCHC RDW Plt Count Lymph % (Auto) [place] % (Auto) Eos % (Auto) Lymph # [place] # Eos # Baso # Seg Neutrophils % Seg Neuts % (Manual) Lymphocytes % (Manual) Monocytes % (Manual) Eosinophils % (Manual) Nucleated RBC % Seg Neutrophils # Seg Neutrophils # Man Lymphocytes # (Manual) Monocytes # (Manual) Eosinophils # (Manual) PT INR POC ABG pH POC ABG pCO2 POC ABG pO2 109 H Sodium Potassium Chloride Carbon Dioxide BUN Creatinine Glucose POC Glucose Lactic Acid 3.80 H* 2.20 H* Calcium Phosphorus Magnesium AST ALT Alkaline Phosphatase Troponin T C-Reactive Protein Total Protein Albumin LDL Cholesterol Direct HDL Cholesterol Urine Creatinine Hepatitis C Antibody Crossmatch Crossmatch [place] 11/12/17 11/12/17 11/12/17 09:24 09:24 09:24 WBC RBC Hgb 10.4 L Hct 33.4 L MCV MCH MCHC RDW Plt Count Lymph % (Auto) [place] % (Auto) Eos % (Auto) Lymph # [place] # Eos # Baso # Seg Neutrophils % Seg Neuts % (Manual) Lymphocytes % (Manual) Monocytes % (Manual) Eosinophils % (Manual) Nucleated RBC % Seg Neutrophils # Seg Neutrophils # Man Lymphocytes # (Manual) Monocytes # (Manual) Eosinophils # (Manual) PT INR POC ABG pH POC ABG pCO2 POC ABG pO2 Sodium Potassium Chloride Carbon Dioxide BUN Creatinine Glucose POC Glucose Lactic Acid 2.90 H* Calcium Phosphorus Magnesium AST ALT Alkaline Phosphatase Troponin T 0.091 H C-Reactive Protein Total Protein Albumin LDL Cholesterol Direct HDL Cholesterol Urine Creatinine Hepatitis C Antibody Crossmatch Crossmatch [place] 11/12/17 11/12/17 11/12/17 12:56 20:03 Unknown WBC RBC Hgb Hct MCV MCH MCHC RDW Plt Count Lymph % (Auto) [place] % (Auto) Eos % (Auto) Lymph # [place] # Eos # Baso # Seg Neutrophils % Seg Neuts % (Manual) Lymphocytes % (Manual) Monocytes % (Manual) Eosinophils % (Manual) Nucleated RBC % Seg Neutrophils # Seg Neutrophils # Man Lymphocytes # (Manual) Monocytes # (Manual) Eosinophils # (Manual) PT INR POC ABG pH POC ABG pCO2 POC ABG pO2 Sodium Potassium Chloride Carbon Dioxide BUN Creatinine Glucose POC Glucose Lactic Acid 3.60 H* Calcium Phosphorus Magnesium AST ALT Alkaline Phosphatase Troponin T 0.102 H* 0.156 H* D C-Reactive Protein Total Protein Albumin LDL Cholesterol Direct HDL Cholesterol Urine Creatinine Hepatitis C Antibody Crossmatch Crossmatch [place] 11/12/17 11/13/17 11/13/17 Unknown 04:50 04:50 WBC 12.2 H RBC 3.51 L Hgb 9.3 L Hct 30.1 L MCV MCH 26 L MCHC 31 L RDW 18.0 H Plt Count 128 L Lymph % (Auto) 8.6 L [place] % (Auto) 11.1 H Eos % (Auto) Lymph # 1.1 L [place] # 1.4 H Eos # Baso # Seg Neutrophils % 80.1 H Seg Neuts % (Manual) Lymphocytes % (Manual) Monocytes % (Manual) Eosinophils % (Manual) Nucleated RBC % Seg Neutrophils # 9.8 H Seg Neutrophils # Man Lymphocytes # (Manual) Monocytes # (Manual) Eosinophils # (Manual) PT INR POC ABG pH POC ABG pCO2 POC ABG pO2 Sodium 149 H Potassium 5.1 H Chloride 114.4 H Carbon Dioxide 18 L BUN 52 H Creatinine 3.3 H D Glucose 129 H POC Glucose Lactic Acid Calcium 7.9 L Phosphorus Magnesium AST ALT Alkaline Phosphatase Troponin T 0.098 H C-Reactive Protein Total Protein Albumin LDL Cholesterol Direct HDL Cholesterol Urine Creatinine Hepatitis C Antibody Crossmatch Crossmatch [place] 11/13/17 11/13/17 11/14/17 04:51 09:34 04:21 WBC RBC Hgb Hct MCV MCH MCHC RDW Plt Count Lymph % (Auto) [place] % (Auto) Eos % (Auto) Lymph # [place] # Eos # Baso # Seg Neutrophils % Seg Neuts % (Manual) Lymphocytes % (Manual) Monocytes % (Manual) Eosinophils % (Manual) Nucleated RBC % Seg Neutrophils # Seg Neutrophils # Man Lymphocytes # (Manual) Monocytes # (Manual) Eosinophils # (Manual) PT INR POC ABG pH POC ABG pCO2 30.1 L 29.8 L POC ABG pO2 135 H Sodium Potassium Chloride Carbon Dioxide BUN Creatinine Glucose POC Glucose Lactic Acid 2.10 H* Calcium Phosphorus Magnesium AST ALT Alkaline Phosphatase Troponin T C-Reactive Protein Total Protein Albumin LDL Cholesterol Direct HDL Cholesterol Urine Creatinine Hepatitis C Antibody Crossmatch Crossmatch [place] 11/15/17 11/15/17 11/16/17 04:52 15:50 05:17 WBC RBC Hgb Hct MCV MCH MCHC RDW Plt Count Lymph % (Auto) [place] % (Auto) Eos % (Auto) Lymph # [place] # Eos # Baso # Seg Neutrophils % Seg Neuts % (Manual) Lymphocytes % (Manual) Monocytes % (Manual) Eosinophils % (Manual) Nucleated RBC % Seg Neutrophils # Seg Neutrophils # Man Lymphocytes # (Manual) Monocytes # (Manual) Eosinophils # (Manual) PT INR POC ABG pH POC ABG pCO2 29.5 L 31.5 L POC ABG pO2 115 H 122 H Sodium 154 H Potassium Chloride 117.9 H Carbon Dioxide 19 L BUN 87 H Creatinine 4.1 H Glucose POC Glucose Lactic Acid Calcium 8.1 L Phosphorus Magnesium AST ALT Alkaline Phosphatase Troponin T C-Reactive Protein Total Protein Albumin LDL Cholesterol Direct HDL Cholesterol Urine Creatinine Hepatitis C Antibody Crossmatch Crossmatch [place] 11/16/17 11/17/17 11/17/17 16:37 04:07 10:00 WBC 14.7 H RBC 3.23 L Hgb 8.3 L Hct 28.1 L MCV MCH 26 L MCHC 30 L RDW 18.8 H Plt Count Lymph % (Auto) [place] % (Auto) Eos % (Auto) Lymph # [place] # Eos # Baso # Seg Neutrophils % Seg Neuts % (Manual) 75 H Lymphocytes % (Manual) 8.0 L Monocytes % (Manual) Eosinophils % (Manual) Nucleated RBC % 1.0 H Seg Neutrophils # Seg Neutrophils # Man 11.0 H Lymphocytes # (Manual) Monocytes # (Manual) 0.9 H Eosinophils # (Manual) PT INR POC ABG pH POC ABG pCO2 POC ABG pO2 Sodium 153 H 155 H Potassium Chloride 117.3 H 119.4 H Carbon Dioxide 19 L 20 L BUN 90 H 89 H Creatinine 3.9 H 3.6 H Glucose 111 H 115 H POC Glucose Lactic Acid Calcium 8.1 L 8.0 L Phosphorus Magnesium AST ALT Alkaline Phosphatase Troponin T C-Reactive Protein Total Protein Albumin LDL Cholesterol Direct HDL Cholesterol Urine Creatinine Hepatitis C Antibody Crossmatch Crossmatch [place] 11/18/17 11/18/17 11/18/17 04:34 04:34 04:34 WBC 15.5 H RBC 3.13 L Hgb 8.1 L Hct 26.3 L MCV MCH 26 L MCHC 31 L RDW 18.6 H Plt Count Lymph % (Auto) [place] % (Auto) Eos % (Auto) Lymph # [place] # Eos # Baso # Seg Neutrophils % Seg Neuts % (Manual) 81.0 H Lymphocytes % (Manual) 7.0 L Monocytes % (Manual) Eosinophils % (Manual) Nucleated RBC % 1.0 H Seg Neutrophils # Seg Neutrophils # Man 12.6 H Lymphocytes # (Manual) 1.1 L Monocytes # (Manual) Eosinophils # (Manual) PT 16.7 H INR 1.30 H POC ABG pH POC ABG pCO2 POC ABG pO2 Sodium 155 H Potassium 3.2 L Chloride 121.0 H Carbon Dioxide 20 L BUN 74 H Creatinine 2.9 H Glucose 126 H POC Glucose Lactic Acid Calcium 7.9 L Phosphorus Magnesium AST ALT Alkaline Phosphatase Troponin T C-Reactive Protein Total Protein Albumin LDL Cholesterol Direct HDL Cholesterol Urine Creatinine Hepatitis C Antibody Crossmatch Crossmatch [place] 11/19/17 11/19/17 11/20/17 04:44 04:44 00:38 WBC 19.0 H 22.2 H RBC 3.20 L 3.17 L Hgb 8.4 L 7.9 L Hct 27.9 L 26.4 L MCV 83 L MCH 26 L 25 L MCHC 30 L 30 L RDW 19.1 H 18.9 H Plt Count Lymph % (Auto) [place] % (Auto) Eos % (Auto) Lymph # [place] # Eos # Baso # Seg Neutrophils % Seg Neuts % (Manual) 83.0 H Lymphocytes % (Manual) 3.0 L Monocytes % (Manual) 9.0 H Eosinophils % (Manual) Nucleated RBC % Seg Neutrophils # Seg Neutrophils # Man 18.4 H Lymphocytes # (Manual) 0.7 L Monocytes # (Manual) 2.0 H Eosinophils # (Manual) PT INR POC ABG pH POC ABG pCO2 POC ABG pO2 Sodium 152 H Potassium Chloride 117.1 H Carbon Dioxide 17 L BUN 66 H Creatinine 2.8 H Glucose 119 H POC Glucose Lactic Acid Calcium 7.8 L Phosphorus Magnesium 2.70 H AST ALT Alkaline Phosphatase Troponin T C-Reactive Protein Total Protein Albumin LDL Cholesterol Direct HDL Cholesterol Urine Creatinine Hepatitis C Antibody Crossmatch Crossmatch [place] 11/20/17 11/20/17 11/20/17 03:29 04:48 13:38 WBC RBC Hgb Hct MCV MCH MCHC RDW Plt Count Lymph % (Auto) [place] % (Auto) Eos % (Auto) Lymph # [place] # Eos # Baso # Seg Neutrophils % Seg Neuts % (Manual) Lymphocytes % (Manual) Monocytes % (Manual) Eosinophils % (Manual) Nucleated RBC % Seg Neutrophils # Seg Neutrophils # Man Lymphocytes # (Manual) Monocytes # (Manual) Eosinophils # (Manual) PT INR POC ABG pH POC ABG pCO2 29.4 L POC ABG pO2 Sodium 148 H Potassium 3.4 L Chloride 113.7 H Carbon Dioxide 18 L BUN 59 H Creatinine 2.7 H Glucose 113 H POC Glucose 128 H Lactic Acid Calcium 7.8 L Phosphorus Magnesium AST ALT Alkaline Phosphatase Troponin T C-Reactive Protein Total Protein Albumin LDL Cholesterol Direct HDL Cholesterol Urine Creatinine Hepatitis C Antibody Crossmatch Crossmatch [place] 11/20/17 11/20/17 11/21/17 17:38 23:40 00:13 WBC RBC Hgb 8.4 L Hct 28.0 L MCV MCH MCHC RDW Plt Count Lymph % (Auto) [place] % (Auto) Eos % (Auto) Lymph # [place] # Eos # Baso # Seg Neutrophils % Seg Neuts % (Manual) Lymphocytes % (Manual) Monocytes % (Manual) Eosinophils % (Manual) Nucleated RBC % Seg Neutrophils # Seg Neutrophils # Man Lymphocytes # (Manual) Monocytes # (Manual) Eosinophils # (Manual) PT INR POC ABG pH POC ABG pCO2 POC ABG pO2 Sodium Potassium Chloride Carbon Dioxide BUN Creatinine Glucose POC Glucose 115 H 145 H Lactic Acid Calcium Phosphorus Magnesium AST ALT Alkaline Phosphatase Troponin T C-Reactive Protein Total Protein Albumin LDL Cholesterol Direct HDL Cholesterol Urine Creatinine Hepatitis C Antibody Crossmatch Crossmatch [place] 11/21/17 11/21/17 11/21/17 04:30 04:30 04:58 WBC 21.0 H RBC Hgb 9.6 L Hct 32.7 L MCV MCH 25 L MCHC 29 L RDW 19.7 H Plt Count 746 H Lymph % (Auto) [place] % (Auto) Eos % (Auto) Lymph # [place] # Eos # Baso # Seg Neutrophils % Seg Neuts % (Manual) Lymphocytes % (Manual) Monocytes % (Manual) Eosinophils % (Manual) Nucleated RBC % Seg Neutrophils # Seg Neutrophils # Man Lymphocytes # (Manual) Monocytes # (Manual) Eosinophils # (Manual) PT INR POC ABG pH POC ABG pCO2 POC ABG pO2 Sodium Potassium Chloride 109.4 H Carbon Dioxide 14 L BUN 59 H Creatinine 3.0 H Glucose 137 H POC Glucose 132 H Lactic Acid Calcium 7.6 L Phosphorus Magnesium AST ALT Alkaline Phosphatase Troponin T C-Reactive Protein Total Protein Albumin LDL Cholesterol Direct HDL Cholesterol Urine Creatinine Hepatitis C Antibody Crossmatch Crossmatch [place] 11/21/17 11/21/17 11/21/17 06:30 13:43 14:17 WBC 38.2 H RBC Hgb 9.0 L Hct 32.3 L MCV MCH 25 L MCHC 28 L RDW 20.0 H Plt Count 766 H Lymph % (Auto) [place] % (Auto) Eos % (Auto) Lymph # [place] # Eos # Baso # Seg Neutrophils % Seg Neuts % (Manual) 85.0 H Lymphocytes % (Manual) 1.0 L Monocytes % (Manual) Eosinophils % (Manual) Nucleated RBC % 2.0 H Seg Neutrophils # Seg Neutrophils # Man 32.5 H Lymphocytes # (Manual) 0.4 L Monocytes # (Manual) 2.3 H Eosinophils # (Manual) PT INR POC ABG pH POC ABG pCO2 18.6 L POC ABG pO2 121 H Sodium 146 H Potassium Chloride 110.9 H Carbon Dioxide 11 L BUN 62 H Creatinine 4.0 H Glucose 64 L POC Glucose Lactic Acid Calcium 7.6 L Phosphorus Magnesium AST ALT Alkaline Phosphatase Troponin T C-Reactive Protein Total Protein Albumin LDL Cholesterol Direct HDL Cholesterol Urine Creatinine Hepatitis C Antibody Crossmatch Crossmatch [place] 11/21/17 11/21/17 11/22/17 14:17 19:09 00:05 WBC RBC Hgb Hct MCV MCH MCHC RDW Plt Count Lymph % (Auto) [place] % (Auto) Eos % (Auto) Lymph # [place] # Eos # Baso # Seg Neutrophils % Seg Neuts % (Manual) Lymphocytes % (Manual) Monocytes % (Manual) Eosinophils % (Manual) Nucleated RBC % Seg Neutrophils # Seg Neutrophils # Man Lymphocytes # (Manual) Monocytes # (Manual) Eosinophils # (Manual) PT INR POC ABG pH POC ABG pCO2 20.0 L POC ABG pO2 Sodium Potassium Chloride Carbon Dioxide BUN Creatinine Glucose POC Glucose 127 H Lactic Acid 7.70 H* Calcium Phosphorus Magnesium AST ALT Alkaline Phosphatase Troponin T C-Reactive Protein Total Protein Albumin LDL Cholesterol Direct HDL Cholesterol Urine Creatinine Hepatitis C Antibody Crossmatch Crossmatch [place] 11/22/17 11/22/17 11/22/17 03:53 06:00 07:25 WBC RBC Hgb Hct MCV MCH MCHC RDW Plt Count Lymph % (Auto) [place] % (Auto) Eos % (Auto) Lymph # [place] # Eos # Baso # Seg Neutrophils % Seg Neuts % (Manual) Lymphocytes % (Manual) Monocytes % (Manual) Eosinophils % (Manual) Nucleated RBC % Seg Neutrophils # Seg Neutrophils # Man Lymphocytes # (Manual) Monocytes # (Manual) Eosinophils # (Manual) PT INR POC ABG pH POC ABG pCO2 22.2 L POC ABG pO2 Sodium 147 H Potassium Chloride 111.9 H Carbon Dioxide 16 L BUN 72 H Creatinine 5.1 H Glucose 181 H POC Glucose 180 H Lactic Acid Calcium 7.1 L Phosphorus Magnesium AST ALT Alkaline Phosphatase Troponin T C-Reactive Protein Total Protein Albumin LDL Cholesterol Direct HDL Cholesterol Urine Creatinine Hepatitis C Antibody Crossmatch Crossmatch [place] 11/22/17 11/22/17 11/22/17 07:25 07:25 12:05 WBC 31.4 H RBC 3.22 L Hgb 8.0 L Hct 26.7 L MCV 83 L MCH 25 L MCHC 30 L RDW 19.4 H Plt Count 602 H Lymph % (Auto) [place] % (Auto) Eos % (Auto) Lymph # [place] # Eos # Baso # Seg Neutrophils % Seg Neuts % (Manual) Lymphocytes % (Manual) Monocytes % (Manual) Eosinophils % (Manual) Nucleated RBC % Seg Neutrophils # Seg Neutrophils # Man Lymphocytes # (Manual) Monocytes # (Manual) Eosinophils # (Manual) PT INR POC ABG pH POC ABG pCO2 POC ABG pO2 Sodium Potassium Chloride Carbon Dioxide BUN Creatinine Glucose POC Glucose 182 H Lactic Acid 5.00 H* Calcium Phosphorus Magnesium AST ALT Alkaline Phosphatase Troponin T C-Reactive Protein Total Protein Albumin LDL Cholesterol Direct HDL Cholesterol Urine Creatinine Hepatitis C Antibody Crossmatch Crossmatch [place] 11/22/17 11/23/17 11/23/17 19:45 01:28 04:56 WBC RBC Hgb Hct MCV MCH MCHC RDW Plt Count Lymph % (Auto) [place] % (Auto) Eos % (Auto) Lymph # [place] # Eos # Baso # Seg Neutrophils % Seg Neuts % (Manual) Lymphocytes % (Manual) Monocytes % (Manual) Eosinophils % (Manual) Nucleated RBC % Seg Neutrophils # Seg Neutrophils # Man Lymphocytes # (Manual) Monocytes # (Manual) Eosinophils # (Manual) PT INR POC ABG pH 7.505 H POC ABG pCO2 26.3 L POC ABG pO2 Sodium Potassium Chloride Carbon Dioxide BUN Creatinine Glucose POC Glucose 165 H Lactic Acid Calcium Phosphorus Magnesium AST ALT Alkaline Phosphatase Troponin T C-Reactive Protein Total Protein Albumin LDL Cholesterol Direct HDL Cholesterol Urine Creatinine Hepatitis C Antibody Reactive A Crossmatch Crossmatch [place] 11/23/17 11/23/17 11/23/17 07:05 12:32 17:53 WBC RBC Hgb Hct MCV MCH MCHC RDW Plt Count Lymph % (Auto) [place] % (Auto) Eos % (Auto) Lymph # [place] # Eos # Baso # Seg Neutrophils % Seg Neuts % (Manual) Lymphocytes % (Manual) Monocytes % (Manual) Eosinophils % (Manual) Nucleated RBC % Seg Neutrophils # Seg Neutrophils # Man Lymphocytes # (Manual) Monocytes # (Manual) Eosinophils # (Manual) PT INR POC ABG pH POC ABG pCO2 POC ABG pO2 Sodium Potassium Chloride Carbon Dioxide 18 L BUN 61 H Creatinine 4.2 H Glucose 153 H POC Glucose 138 H 173 H Lactic Acid Calcium 7.5 L Phosphorus Magnesium AST ALT Alkaline Phosphatase Troponin T C-Reactive Protein Total Protein Albumin LDL Cholesterol Direct HDL Cholesterol Urine Creatinine Hepatitis C Antibody Crossmatch Crossmatch [place] 11/23/17 11/24/17 11/24/17 23:41 05:42 05:42 WBC 21.5 H RBC 2.48 L Hgb 6.2 L Hct 20.3 L D MCV 82 L MCH 25 L MCHC 31 L RDW 18.9 H Plt Count Lymph % (Auto) [place] % (Auto) Eos % (Auto) Lymph # [place] # Eos # Baso # Seg Neutrophils % Seg Neuts % (Manual) 94.0 H Lymphocytes % (Manual) 3.0 L Monocytes % (Manual) Eosinophils % (Manual) Nucleated RBC % Seg Neutrophils # Seg Neutrophils # Man 20.2 H Lymphocytes # (Manual) 0.6 L Monocytes # (Manual) Eosinophils # (Manual) PT INR POC ABG pH POC ABG pCO2 POC ABG pO2 Sodium 149 H Potassium 2.8 L* D Chloride 113.9 H Carbon Dioxide 19 L BUN 31 H Creatinine 2.3 H Glucose 103 H POC Glucose 133 H Lactic Acid Calcium 5.3 L* D Phosphorus Magnesium 1.30 L AST ALT Alkaline Phosphatase Troponin T C-Reactive Protein Total Protein Albumin LDL Cholesterol Direct HDL Cholesterol Urine Creatinine Hepatitis C Antibody Crossmatch Crossmatch [place] 11/24/17 11/24/17 11/24/17 05:42 08:27 08:27 WBC RBC Hgb Hct MCV MCH MCHC RDW Plt Count Lymph % (Auto) [place] % (Auto) Eos % (Auto) Lymph # [place] # Eos # Baso # Seg Neutrophils % Seg Neuts % (Manual) Lymphocytes % (Manual) Monocytes % (Manual) Eosinophils % (Manual) Nucleated RBC % Seg Neutrophils # Seg Neutrophils # Man Lymphocytes # (Manual) Monocytes # (Manual) Eosinophils # (Manual) PT INR POC ABG pH POC ABG pCO2 POC ABG pO2 Sodium Potassium Chloride Carbon Dioxide BUN Creatinine Glucose POC Glucose Lactic Acid 5.40 H* 5.20 H* Calcium Phosphorus Magnesium AST ALT Alkaline Phosphatase Troponin T C-Reactive Protein Total Protein Albumin LDL Cholesterol Direct HDL Cholesterol Urine Creatinine Hepatitis C Antibody Crossmatch See Detail Crossmatch [place] 11/24/17 11/24/17 11/24/17 12:13 17:22 21:53 WBC 23.0 H RBC 3.32 L Hgb 8.8 L Hct 27.1 L D MCV 82 L MCH 26 L MCHC RDW 17.3 H Plt Count Lymph % (Auto) [place] % (Auto) Eos % (Auto) Lymph # [place] # Eos # Baso # Seg Neutrophils % Seg Neuts % (Manual) Lymphocytes % (Manual) Monocytes % (Manual) Eosinophils % (Manual) Nucleated RBC % Seg Neutrophils # Seg Neutrophils # Man Lymphocytes # (Manual) Monocytes # (Manual) Eosinophils # (Manual) PT INR POC ABG pH POC ABG pCO2 POC ABG pO2 Sodium Potassium Chloride Carbon Dioxide BUN Creatinine Glucose POC Glucose 138 H 180 H Lactic Acid Calcium Phosphorus Magnesium AST ALT Alkaline Phosphatase Troponin T C-Reactive Protein Total Protein Albumin LDL Cholesterol Direct HDL Cholesterol Urine Creatinine Hepatitis C Antibody Crossmatch Crossmatch [place] 11/24/17 11/24/17 11/25/17 21:53 23:28 04:19 WBC RBC Hgb Hct MCV MCH MCHC RDW Plt Count Lymph % (Auto) [place] % (Auto) Eos % (Auto) Lymph # [place] # Eos # Baso # Seg Neutrophils % Seg Neuts % (Manual) Lymphocytes % (Manual) Monocytes % (Manual) Eosinophils % (Manual) Nucleated RBC % Seg Neutrophils # Seg Neutrophils # Man Lymphocytes # (Manual) Monocytes # (Manual) Eosinophils # (Manual) PT INR POC ABG pH POC ABG pCO2 POC ABG pO2 Sodium Potassium Chloride 96.3 L Carbon Dioxide BUN 28 H 31 H Creatinine 2.3 H 2.6 H Glucose 125 H 101 H POC Glucose 111 H Lactic Acid Calcium 7.5 L D 7.4 L Phosphorus Magnesium AST 170 H ALT 179 H Alkaline Phosphatase 175 H Troponin T C-Reactive Protein Total Protein 5.5 L Albumin 1.8 L LDL Cholesterol Direct HDL Cholesterol Urine Creatinine Hepatitis C Antibody Crossmatch Crossmatch [place] 11/25/17 11/25/17 11/26/17 04:19 04:19 06:29 WBC 22.5 H RBC 3.48 L Hgb 9.1 L Hct 28.3 L MCV 81 L MCH 26 L MCHC RDW 17.4 H Plt Count Lymph % (Auto) [place] % (Auto) Eos % (Auto) Lymph # [place] # Eos # Baso # Seg Neutrophils % Seg Neuts % (Manual) Lymphocytes % (Manual) Monocytes % (Manual) Eosinophils % (Manual) Nucleated RBC % Seg Neutrophils # Seg Neutrophils # Man Lymphocytes # (Manual) Monocytes # (Manual) Eosinophils # (Manual) PT 23.6 H INR 1.96 H POC ABG pH POC ABG pCO2 POC ABG pO2 Sodium Potassium Chloride Carbon Dioxide BUN 31 H Creatinine 2.6 H Glucose 101 H POC Glucose Lactic Acid Calcium 7.5 L Phosphorus Magnesium AST ALT Alkaline Phosphatase Troponin T C-Reactive Protein Total Protein Albumin LDL Cholesterol Direct HDL Cholesterol Urine Creatinine Hepatitis C Antibody Crossmatch Crossmatch [facility] 11/26/17 11/27/17 11/27/17 06:34 04:06 04:06 WBC 11.3 H RBC 3.13 L Hgb 8.4 L Hct 25.8 L MCV 82 L MCH 27 L MCHC RDW 17.7 H Plt Count Lymph % (Auto) 7.4 L [place] % (Auto) Eos % (Auto) Lymph # 0.8 L [place] # Eos # Baso # Seg Neutrophils % 83.7 H Seg Neuts % (Manual) Lymphocytes % (Manual) Monocytes % (Manual) Eosinophils % (Manual) Nucleated RBC % Seg Neutrophils # 9.5 H Seg Neutrophils # Man Lymphocytes # (Manual) Monocytes # (Manual) Eosinophils # (Manual) PT INR POC ABG pH POC ABG pCO2 POC ABG pO2 Sodium Potassium Chloride 97.9 L Carbon Dioxide BUN 43 H 29 H Creatinine 3.5 H 2.9 H Glucose POC Glucose Lactic Acid Calcium 7.5 L 8.1 L Phosphorus Magnesium AST ALT Alkaline Phosphatase Troponin T C-Reactive Protein Total Protein Albumin LDL Cholesterol Direct HDL Cholesterol Urine Creatinine Hepatitis C Antibody Crossmatch Crossmatch [facility] 11/27/17 11/28/17 11/28/17 18:11 00:16 03:50 WBC RBC Hgb Hct MCV MCH MCHC RDW Plt Count Lymph % (Auto) [place] % (Auto) Eos % (Auto) Lymph # [place] # Eos # Baso # Seg Neutrophils % Seg Neuts % (Manual) Lymphocytes % (Manual) Monocytes % (Manual) Eosinophils % (Manual) Nucleated RBC % Seg Neutrophils # Seg Neutrophils # Man Lymphocytes # (Manual) Monocytes # (Manual) Eosinophils # (Manual) PT INR POC ABG pH POC ABG pCO2 POC ABG pO2 Sodium Potassium Chloride Carbon Dioxide BUN 39 H Creatinine 4.1 H Glucose 108 H POC Glucose 110 H 124 H Lactic Acid Calcium 7.9 L Phosphorus Magnesium AST ALT Alkaline Phosphatase Troponin T C-Reactive Protein Total Protein Albumin LDL Cholesterol Direct HDL Cholesterol Urine Creatinine Hepatitis C Antibody Crossmatch Crossmatch [facility] 11/28/17 11/28/17 11/28/17 05:03 11:36 17:42 WBC RBC Hgb Hct MCV MCH MCHC RDW Plt Count Lymph % (Auto) [place] % (Auto) Eos % (Auto) Lymph # [place] # Eos # Baso # Seg Neutrophils % Seg Neuts % (Manual) Lymphocytes % (Manual) Monocytes % (Manual) Eosinophils % (Manual) Nucleated RBC % Seg Neutrophils # Seg Neutrophils # Man Lymphocytes # (Manual) Monocytes # (Manual) Eosinophils # (Manual) PT INR POC ABG pH POC ABG pCO2 POC ABG pO2 Sodium Potassium Chloride Carbon Dioxide BUN Creatinine Glucose POC Glucose 134 H 114 H 119 H Lactic Acid Calcium Phosphorus Magnesium AST ALT Alkaline Phosphatase Troponin T C-Reactive Protein Total Protein Albumin LDL Cholesterol Direct HDL Cholesterol Urine Creatinine Hepatitis C Antibody Crossmatch Crossmatch [facility] 11/29/17 11/29/17 11/29/17 00:22 05:25 05:25 WBC 12.3 H RBC 3.34 L Hgb 8.6 L Hct 27.3 L MCV 82 L MCH 26 L MCHC RDW 18.5 H Plt Count Lymph % (Auto) 3.7 L [place] % (Auto) 7.7 H Eos % (Auto) Lymph # 0.5 L [place] # 1.0 H Eos # Baso # Seg Neutrophils % 86.5 H Seg Neuts % (Manual) Lymphocytes % (Manual) Monocytes % (Manual) Eosinophils % (Manual) Nucleated RBC % Seg Neutrophils # 10.7 H Seg Neutrophils # Man Lymphocytes # (Manual) Monocytes # (Manual) Eosinophils # (Manual) PT INR POC ABG pH POC ABG pCO2 POC ABG pO2 Sodium Potassium Chloride Carbon Dioxide BUN 29 H Creatinine 3.5 H Glucose 109 H POC Glucose 137 H Lactic Acid Calcium 7.8 L Phosphorus Magnesium AST ALT Alkaline Phosphatase Troponin T C-Reactive Protein Total Protein Albumin LDL Cholesterol Direct HDL Cholesterol Urine Creatinine Hepatitis C Antibody Crossmatch Crossmatch [facility] 11/29/17 11/30/17 11/30/17 05:26 00:26 04:17 WBC RBC Hgb Hct MCV MCH MCHC RDW Plt Count Lymph % (Auto) [place] % (Auto) Eos % (Auto) Lymph # [place] # Eos # Baso # Seg Neutrophils % Seg Neuts % (Manual) Lymphocytes % (Manual) Monocytes % (Manual) Eosinophils % (Manual) Nucleated RBC % Seg Neutrophils # Seg Neutrophils # Man Lymphocytes # (Manual) Monocytes # (Manual) Eosinophils # (Manual) PT INR POC ABG pH POC ABG pCO2 POC ABG pO2 Sodium Potassium Chloride Carbon Dioxide BUN 38 H Creatinine 4.3 H Glucose 109 H POC Glucose 129 H 152 H Lactic Acid Calcium 7.8 L Phosphorus Magnesium AST ALT Alkaline Phosphatase Troponin T C-Reactive Protein Total Protein Albumin LDL Cholesterol Direct HDL Cholesterol Urine Creatinine Hepatitis C Antibody Crossmatch Crossmatch [facility] 11/30/17 11/30/17 11/30/17 12:17 16:23 23:35 WBC RBC Hgb Hct MCV MCH MCHC RDW Plt Count Lymph % (Auto) [place] % (Auto) Eos % (Auto) Lymph # [place] # Eos # Baso # Seg Neutrophils % Seg Neuts % (Manual) Lymphocytes % (Manual) Monocytes % (Manual) Eosinophils % (Manual) Nucleated RBC % Seg Neutrophils # Seg Neutrophils # Man Lymphocytes # (Manual) Monocytes # (Manual) Eosinophils # (Manual) PT INR POC ABG pH POC ABG pCO2 POC ABG pO2 Sodium Potassium Chloride Carbon Dioxide BUN Creatinine Glucose POC Glucose 170 H 114 H 122 H Lactic Acid Calcium Phosphorus Magnesium AST ALT Alkaline Phosphatase Troponin T C-Reactive Protein Total Protein Albumin LDL Cholesterol Direct HDL Cholesterol Urine Creatinine Hepatitis C Antibody Crossmatch Crossmatch [facility] 12/01/17 12/01/17 12/01/17 04:09 04:09 12:17 WBC 14.1 H RBC 3.32 L Hgb 8.6 L Hct 27.0 L MCV 81 L MCH 26 L MCHC RDW 18.7 H Plt Count Lymph % (Auto) 5.5 L [place] % (Auto) 9.7 H Eos % (Auto) Lymph # 0.8 L [place] # 1.4 H Eos # Baso # Seg Neutrophils % 82.9 H Seg Neuts % (Manual) Lymphocytes % (Manual) Monocytes % (Manual) Eosinophils % (Manual) Nucleated RBC % Seg Neutrophils # 11.7 H Seg Neutrophils # Man Lymphocytes # (Manual) Monocytes # (Manual) Eosinophils # (Manual) PT INR POC ABG pH POC ABG pCO2 POC ABG pO2 Sodium Potassium 3.4 L Chloride Carbon Dioxide BUN 21 H Creatinine 3.0 H Glucose 108 H POC Glucose 126 H Lactic Acid Calcium 8.0 L Phosphorus Magnesium AST ALT Alkaline Phosphatase Troponin T C-Reactive Protein Total Protein Albumin LDL Cholesterol Direct HDL Cholesterol Urine Creatinine Hepatitis C Antibody Crossmatch Crossmatch [facility] 12/02/17 12/03/17 12/03/17 23:46 02:52 05:54 WBC 17.2 H RBC 3.21 L Hgb 8.5 L Hct 25.8 L MCV 80 L MCH 26 L MCHC RDW 18.4 H Plt Count 128 L Lymph % (Auto) [place] % (Auto) Eos % (Auto) Lymph # [place] # Eos # Baso # Seg Neutrophils % Seg Neuts % (Manual) Lymphocytes % (Manual) Monocytes % (Manual) Eosinophils % (Manual) Nucleated RBC % Seg Neutrophils # Seg Neutrophils # Man Lymphocytes # (Manual) Monocytes # (Manual) Eosinophils # (Manual) PT INR POC ABG pH POC ABG pCO2 POC ABG pO2 Sodium Potassium Chloride Carbon Dioxide BUN Creatinine Glucose POC Glucose 125 H 107 H Lactic Acid Calcium Phosphorus Magnesium AST ALT Alkaline Phosphatase Troponin T C-Reactive Protein Total Protein Albumin LDL Cholesterol Direct HDL Cholesterol Urine Creatinine Hepatitis C Antibody Crossmatch Crossmatch [facility] 12/03/17 12/03/17 12/04/17 12:05 Unknown 12:26 WBC RBC Hgb Hct MCV MCH MCHC RDW Plt Count Lymph % (Auto) [place] % (Auto) Eos % (Auto) Lymph # [place] # Eos # Baso # Seg Neutrophils % Seg Neuts % (Manual) Lymphocytes % (Manual) Monocytes % (Manual) Eosinophils % (Manual) Nucleated RBC % Seg Neutrophils # Seg Neutrophils # Man Lymphocytes # (Manual) Monocytes # (Manual) Eosinophils # (Manual) PT INR POC ABG pH POC ABG pCO2 POC ABG pO2 Sodium Potassium Chloride Carbon Dioxide BUN 21 H Creatinine 2.8 H Glucose 113 H POC Glucose 106 H 119 H Lactic Acid Calcium Phosphorus Magnesium AST ALT Alkaline Phosphatase Troponin T C-Reactive Protein Total Protein Albumin LDL Cholesterol Direct HDL Cholesterol Urine Creatinine Hepatitis C Antibody Crossmatch Crossmatch [facility] 12/04/17 12/05/17 12/05/17 17:57 00:52 04:05 WBC RBC 2.96 L Hgb 7.7 L Hct 24.2 L MCV 82 L MCH 26 L MCHC RDW 18.8 H Plt Count 105 L Lymph % (Auto) 10.6 L [place] % (Auto) 12.1 H Eos % (Auto) 5.2 H Lymph # 1.1 L [place] # 1.3 H Eos # 0.5 H Baso # Seg Neutrophils % 71.3 H Seg Neuts % (Manual) Lymphocytes % (Manual) Monocytes % (Manual) Eosinophils % (Manual) Nucleated RBC % Seg Neutrophils # Seg Neutrophils # Man Lymphocytes # (Manual) Monocytes # (Manual) Eosinophils # (Manual) PT INR POC ABG pH POC ABG pCO2 POC ABG pO2 Sodium Potassium Chloride Carbon Dioxide BUN Creatinine Glucose POC Glucose 140 H 117 H Lactic Acid Calcium Phosphorus Magnesium AST ALT Alkaline Phosphatase Troponin T C-Reactive Protein Total Protein Albumin LDL Cholesterol Direct HDL Cholesterol Urine Creatinine Hepatitis C Antibody Crossmatch Crossmatch [facility] 12/05/17 12/05/17 12/06/17 04:05 22:50 08:18 WBC RBC 2.80 L Hgb 7.4 L Hct 23.0 L MCV 82 L MCH 27 L MCHC RDW 19.5 H Plt Count 125 L Lymph % (Auto) [place] % (Auto) Eos % (Auto) Lymph # [place] # Eos # Baso # Seg Neutrophils % Seg Neuts % (Manual) Lymphocytes % (Manual) Monocytes % (Manual) Eosinophils % (Manual) Nucleated RBC % Seg Neutrophils # Seg Neutrophils # Man Lymphocytes # (Manual) Monocytes # (Manual) Eosinophils # (Manual) PT INR POC ABG pH POC ABG pCO2 POC ABG pO2 Sodium Potassium Chloride 107.4 H Carbon Dioxide BUN Creatinine 2.5 H Glucose POC Glucose 112 H Lactic Acid Calcium 8.3 L Phosphorus Magnesium AST ALT Alkaline Phosphatase Troponin T C-Reactive Protein Total Protein Albumin LDL Cholesterol Direct HDL Cholesterol Urine Creatinine Hepatitis C Antibody Crossmatch Crossmatch [facility] 12/06/17 12/06/17 12/06/17 08:18 12:01 23:58 WBC RBC Hgb Hct MCV MCH MCHC RDW Plt Count Lymph % (Auto) [place] % (Auto) Eos % (Auto) Lymph # [place] # Eos # Baso # Seg Neutrophils % Seg Neuts % (Manual) Lymphocytes % (Manual) Monocytes % (Manual) Eosinophils % (Manual) Nucleated RBC % Seg Neutrophils # Seg Neutrophils # Man Lymphocytes # (Manual) Monocytes # (Manual) Eosinophils # (Manual) PT INR POC ABG pH POC ABG pCO2 POC ABG pO2 Sodium Potassium Chloride 108.4 H Carbon Dioxide BUN 28 H Creatinine 3.7 H Glucose 103 H POC Glucose 106 H 108 H Lactic Acid Calcium 8.0 L Phosphorus Magnesium AST ALT Alkaline Phosphatase Troponin T C-Reactive Protein Total Protein Albumin LDL Cholesterol Direct HDL Cholesterol Urine Creatinine Hepatitis C Antibody Crossmatch Crossmatch [facility] 12/07/17 12/07/17 12/07/17 05:47 05:47 18:03 WBC RBC 2.79 L Hgb 7.3 L Hct 22.8 L MCV 82 L MCH 26 L MCHC RDW 19.1 H Plt Count 101 L Lymph % (Auto) [place] % (Auto) Eos % (Auto) Lymph # [place] # Eos # Baso # Seg Neutrophils % Seg Neuts % (Manual) 72.0 H Lymphocytes % (Manual) 13.0 L Monocytes % (Manual) Eosinophils % (Manual) 9.0 H Nucleated RBC % Seg Neutrophils # Seg Neutrophils # Man Lymphocytes # (Manual) 1.1 L Monocytes # (Manual) Eosinophils # (Manual) 0.8 H PT INR POC ABG pH POC ABG pCO2 POC ABG pO2 Sodium 146 H Potassium Chloride 109.8 H Carbon Dioxide BUN 36 H Creatinine 4.0 H Glucose POC Glucose 143 H Lactic Acid Calcium 8.0 L Phosphorus Magnesium AST ALT Alkaline Phosphatase Troponin T C-Reactive Protein Total Protein Albumin LDL Cholesterol Direct HDL Cholesterol Urine Creatinine Hepatitis C Antibody Crossmatch Crossmatch [facility] 12/07/17 12/08/17 12/08/17 23:33 05:10 05:10 WBC RBC 2.91 L Hgb 7.5 L Hct 24.4 L MCV MCH 26 L MCHC 31 L RDW 19.7 H Plt Count 109 L Lymph % (Auto) [place] % (Auto) Eos % (Auto) Lymph # [place] # Eos # Baso # Seg Neutrophils % Seg Neuts % (Manual) Lymphocytes % (Manual) 11.0 L Monocytes % (Manual) Eosinophils % (Manual) 12.0 H Nucleated RBC % Seg Neutrophils # Seg Neutrophils # Man Lymphocytes # (Manual) 0.7 L Monocytes # (Manual) Eosinophils # (Manual) 0.7 H PT INR POC ABG pH POC ABG pCO2 POC ABG pO2 Sodium 147 H Potassium Chloride 110.4 H Carbon Dioxide BUN Creatinine 2.8 H Glucose POC Glucose 107 H Lactic Acid Calcium 7.8 L Phosphorus Magnesium AST ALT Alkaline Phosphatase Troponin T C-Reactive Protein Total Protein Albumin LDL Cholesterol Direct HDL Cholesterol Urine Creatinine Hepatitis C Antibody Crossmatch Crossmatch [facility] 12/09/17 12/09/17 12/09/17 04:18 04:18 12:16 WBC RBC Hgb 7.2 L Hct 23.2 L MCV MCH MCHC RDW Plt Count Lymph % (Auto) [place] % (Auto) Eos % (Auto) Lymph # [place] # Eos # Baso # Seg Neutrophils % Seg Neuts % (Manual) Lymphocytes % (Manual) Monocytes % (Manual) Eosinophils % (Manual) Nucleated RBC % Seg Neutrophils # Seg Neutrophils # Man Lymphocytes # (Manual) Monocytes # (Manual) Eosinophils # (Manual) PT INR POC ABG pH POC ABG pCO2 POC ABG pO2 Sodium 150 H Potassium Chloride 114.5 H Carbon Dioxide BUN 25 H Creatinine 3.3 H Glucose POC Glucose 142 H Lactic Acid Calcium 7.7 L Phosphorus Magnesium AST ALT Alkaline Phosphatase Troponin T C-Reactive Protein Total Protein Albumin LDL Cholesterol Direct HDL Cholesterol Urine Creatinine Hepatitis C Antibody Crossmatch Crossmatch [facility] 12/10/17 12/10/17 12/11/17 05:14 05:14 12:05 WBC RBC 2.81 L Hgb 7.4 L Hct 23.9 L MCV MCH 26 L MCHC 31 L RDW 19.1 H Plt Count 128 L Lymph % (Auto) [place] % (Auto) Eos % (Auto) Lymph # [place] # Eos # Baso # Seg Neutrophils % Seg Neuts % (Manual) 78.0 H Lymphocytes % (Manual) 8.0 L Monocytes % (Manual) Eosinophils % (Manual) 5.0 H Nucleated RBC % Seg Neutrophils # Seg Neutrophils # Man Lymphocytes # (Manual) 0.6 L Monocytes # (Manual) Eosinophils # (Manual) PT INR POC ABG pH POC ABG pCO2 POC ABG pO2 Sodium Potassium Chloride Carbon Dioxide BUN Creatinine 2.2 H Glucose POC Glucose 127 H Lactic Acid Calcium 7.8 L Phosphorus Magnesium AST ALT Alkaline Phosphatase Troponin T C-Reactive Protein Total Protein Albumin LDL Cholesterol Direct HDL Cholesterol Urine Creatinine Hepatitis C Antibody Crossmatch Crossmatch [facility] 12/11/17 12/11/17 12/11/17 15:26 18:36 23:40 WBC RBC Hgb Hct MCV MCH MCHC RDW Plt Count Lymph % (Auto) [place] % (Auto) Eos % (Auto) Lymph # [place] # Eos # Baso # Seg Neutrophils % Seg Neuts % (Manual) Lymphocytes % (Manual) Monocytes % (Manual) Eosinophils % (Manual) Nucleated RBC % Seg Neutrophils # Seg Neutrophils # Man Lymphocytes # (Manual) Monocytes # (Manual) Eosinophils # (Manual) PT INR POC ABG pH POC ABG pCO2 POC ABG pO2 Sodium Potassium 3.3 L Chloride Carbon Dioxide BUN Creatinine 1.6 H Glucose POC Glucose 106 H 110 H Lactic Acid Calcium 7.6 L Phosphorus Magnesium AST ALT Alkaline Phosphatase Troponin T C-Reactive Protein Total Protein Albumin LDL Cholesterol Direct HDL Cholesterol Urine Creatinine Hepatitis C Antibody Crossmatch Crossmatch [facility] 12/12/17 12/12/17 12/12/17 05:10 05:41 05:41 WBC RBC 3.17 L Hgb 8.1 L Hct 25.7 L MCV 81 L MCH 25 L MCHC 31 L RDW 19.2 H Plt Count Lymph % (Auto) [place] % (Auto) Eos % (Auto) Lymph # [place] # Eos # Baso # Seg Neutrophils % Seg Neuts % (Manual) 74.0 H Lymphocytes % (Manual) 6.0 L Monocytes % (Manual) Eosinophils % (Manual) 9.0 H Nucleated RBC % Seg Neutrophils # Seg Neutrophils # Man Lymphocytes # (Manual) 0.6 L Monocytes # (Manual) Eosinophils # (Manual) 0.9 H PT INR POC ABG pH POC ABG pCO2 POC ABG pO2 Sodium Potassium 3.5 L Chloride Carbon Dioxide BUN Creatinine 2.3 H Glucose 113 H POC Glucose 112 H Lactic Acid Calcium 7.5 L Phosphorus Magnesium AST ALT Alkaline Phosphatase Troponin T C-Reactive Protein Total Protein Albumin LDL Cholesterol Direct HDL Cholesterol Urine Creatinine Hepatitis C Antibody Crossmatch Crossmatch [facility] 12/13/17 12/13/17 12/13/17 06:14 12:00 17:37 WBC RBC Hgb Hct MCV MCH MCHC RDW Plt Count Lymph % (Auto) [place] % (Auto) Eos % (Auto) Lymph # [place] # Eos # Baso # Seg Neutrophils % Seg Neuts % (Manual) Lymphocytes % (Manual) Monocytes % (Manual) Eosinophils % (Manual) Nucleated RBC % Seg Neutrophils # Seg Neutrophils # Man Lymphocytes # (Manual) Monocytes # (Manual) Eosinophils # (Manual) PT INR POC ABG pH POC ABG pCO2 POC ABG pO2 Sodium Potassium Chloride Carbon Dioxide BUN Creatinine Glucose POC Glucose 130 H 133 H 136 H Lactic Acid Calcium Phosphorus Magnesium AST ALT Alkaline Phosphatase Troponin T C-Reactive Protein Total Protein Albumin LDL Cholesterol Direct HDL Cholesterol Urine Creatinine Hepatitis C Antibody Crossmatch Crossmatch [facility] 12/13/17 12/14/17 12/14/17 23:39 05:11 05:11 WBC RBC Hgb Hct MCV MCH MCHC RDW Plt Count Lymph % (Auto) [place] % (Auto) Eos % (Auto) Lymph # [place] # Eos # Baso # Seg Neutrophils % Seg Neuts % (Manual) Lymphocytes % (Manual) Monocytes % (Manual) Eosinophils % (Manual) Nucleated RBC % Seg Neutrophils # Seg Neutrophils # Man Lymphocytes # (Manual) Monocytes # (Manual) Eosinophils # (Manual) PT 15.4 H INR 1.17 H POC ABG pH POC ABG pCO2 POC ABG pO2 Sodium Potassium Chloride Carbon Dioxide 21 L BUN 26 H Creatinine 2.9 H Glucose POC Glucose 108 H Lactic Acid Calcium 7.2 L Phosphorus Magnesium AST ALT Alkaline Phosphatase Troponin T C-Reactive Protein Total Protein Albumin LDL Cholesterol Direct HDL Cholesterol Urine Creatinine Hepatitis C Antibody Crossmatch Crossmatch [facility] 12/14/17 12/14/17 12/14/17 12:00 16:01 18:24 WBC 12.9 H RBC 3.25 L Hgb 8.2 L Hct 26.2 L MCV 81 L MCH 25 L MCHC 31 L RDW 19.2 H Plt Count Lymph % (Auto) [place] % (Auto) Eos % (Auto) Lymph # [place] # Eos # Baso # Seg Neutrophils % Seg Neuts % (Manual) Lymphocytes % (Manual) Monocytes % (Manual) Eosinophils % (Manual) Nucleated RBC % Seg Neutrophils # Seg Neutrophils # Man Lymphocytes # (Manual) Monocytes # (Manual) Eosinophils # (Manual) PT INR POC ABG pH POC ABG pCO2 POC ABG pO2 Sodium Potassium Chloride Carbon Dioxide BUN Creatinine Glucose POC Glucose 138 H 120 H Lactic Acid Calcium Phosphorus Magnesium AST ALT Alkaline Phosphatase Troponin T C-Reactive Protein Total Protein Albumin LDL Cholesterol Direct HDL Cholesterol Urine Creatinine Hepatitis C Antibody Crossmatch Crossmatch [facility] 12/14/17 12/14/17 12/15/17 23:29 Unknown 05:57 WBC 12.5 H RBC 2.48 L Hgb 6.0 L Hct 24.4 L MCV 79 L MCH 24 L MCHC 30 L RDW 18.5 H Plt Count 131 L Lymph % (Auto) 7.0 L [place] % (Auto) 8.9 H Eos % (Auto) 8.3 H Lymph # 0.9 L [place] # 1.1 H Eos # 1.0 H Baso # Seg Neutrophils % 75.2 H Seg Neuts % (Manual) Lymphocytes % (Manual) Monocytes % (Manual) Eosinophils % (Manual) Nucleated RBC % Seg Neutrophils # 9.4 H Seg Neutrophils # Man Lymphocytes # (Manual) Monocytes # (Manual) Eosinophils # (Manual) PT INR POC ABG pH POC ABG pCO2 POC ABG pO2 Sodium Potassium Chloride Carbon Dioxide BUN Creatinine Glucose POC Glucose 110 H 113 H Lactic Acid Calcium Phosphorus Magnesium AST ALT Alkaline Phosphatase Troponin T C-Reactive Protein Total Protein Albumin LDL Cholesterol Direct HDL Cholesterol Urine Creatinine Hepatitis C Antibody Crossmatch Crossmatch [facility] 12/15/17 12/15/17 12/15/17 11:50 13:37 17:58 WBC RBC Hgb 7.3 L Hct 23.3 L MCV MCH MCHC RDW Plt Count Lymph % (Auto) [place] % (Auto) Eos % (Auto) Lymph # [place] # Eos # Baso # Seg Neutrophils % Seg Neuts % (Manual) Lymphocytes % (Manual) Monocytes % (Manual) Eosinophils % (Manual) Nucleated RBC % Seg Neutrophils # Seg Neutrophils # Man Lymphocytes # (Manual) Monocytes # (Manual) Eosinophils # (Manual) PT INR POC ABG pH POC ABG pCO2 POC ABG pO2 Sodium Potassium Chloride Carbon Dioxide BUN Creatinine Glucose POC Glucose 106 H 110 H Lactic Acid Calcium Phosphorus Magnesium AST ALT Alkaline Phosphatase Troponin T C-Reactive Protein Total Protein Albumin LDL Cholesterol Direct HDL Cholesterol Urine Creatinine Hepatitis C Antibody Crossmatch Crossmatch [facility] 12/15/17 12/16/17 12/16/17 23:30 04:55 05:14 WBC 13.2 H RBC 2.79 L Hgb 6.9 L Hct 22.2 L MCV 80 L MCH 25 L MCHC 31 L RDW 18.8 H Plt Count Lymph % (Auto) 7.3 L [place] % (Auto) 11.0 H Eos % (Auto) 8.2 H Lymph # 1.0 L [place] # 1.4 H Eos # 1.1 H Baso # Seg Neutrophils % 72.9 H Seg Neuts % (Manual) Lymphocytes % (Manual) Monocytes % (Manual) Eosinophils % (Manual) Nucleated RBC % Seg Neutrophils # 9.6 H Seg Neutrophils # Man Lymphocytes # (Manual) Monocytes # (Manual) Eosinophils # (Manual) PT INR POC ABG pH POC ABG pCO2 POC ABG pO2 Sodium 131 L D Potassium 2.8 L* D Chloride 93.2 L Carbon Dioxide BUN 24 H Creatinine 2.0 H Glucose POC Glucose 111 H Lactic Acid Calcium 7.7 L Phosphorus Magnesium AST ALT Alkaline Phosphatase Troponin T C-Reactive Protein Total Protein Albumin LDL Cholesterol Direct HDL Cholesterol Urine Creatinine Hepatitis C Antibody Crossmatch Crossmatch [facility] 12/16/17 12/16/17 12/16/17 13:01 17:32 23:39 WBC RBC Hgb Hct MCV MCH MCHC RDW Plt Count Lymph % (Auto) [place] % (Auto) Eos % (Auto) Lymph # [place] # Eos # Baso # Seg Neutrophils % Seg Neuts % (Manual) Lymphocytes % (Manual) Monocytes % (Manual) Eosinophils % (Manual) Nucleated RBC % Seg Neutrophils # Seg Neutrophils # Man Lymphocytes # (Manual) Monocytes # (Manual) Eosinophils # (Manual) PT INR POC ABG pH POC ABG pCO2 POC ABG pO2 Sodium Potassium Chloride Carbon Dioxide BUN Creatinine Glucose POC Glucose 121 H 107 H Lactic Acid Calcium Phosphorus Magnesium AST ALT Alkaline Phosphatase Troponin T C-Reactive Protein Total Protein Albumin LDL Cholesterol Direct HDL Cholesterol Urine Creatinine Hepatitis C Antibody Crossmatch Crossmatch [facility] See Detail 12/17/17 12/17/17 12/17/17 05:08 05:08 12:03 WBC 12.9 H RBC 2.88 L Hgb 7.2 L Hct 22.6 L MCV 78 L MCH 25 L MCHC RDW 18.3 H Plt Count Lymph % (Auto) 8.0 L [place] % (Auto) 8.6 H Eos % (Auto) Lymph # 1.0 L [place] # 1.1 H Eos # Baso # Seg Neutrophils % 79.3 H Seg Neuts % (Manual) Lymphocytes % (Manual) Monocytes % (Manual) Eosinophils % (Manual) Nucleated RBC % Seg Neutrophils # 10.2 H Seg Neutrophils # Man Lymphocytes # (Manual) Monocytes # (Manual) Eosinophils # (Manual) PT INR POC ABG pH POC ABG pCO2 POC ABG pO2 Sodium Potassium 3.4 L D Chloride Carbon Dioxide BUN Creatinine Glucose 104 H POC Glucose 109 H Lactic Acid Calcium 7.6 L Phosphorus Magnesium 1.30 L AST ALT Alkaline Phosphatase 177 H Troponin T C-Reactive Protein Total Protein Albumin 2.0 L LDL Cholesterol Direct HDL Cholesterol Urine Creatinine Hepatitis C Antibody Crossmatch Crossmatch [facility] 12/17/17 12/18/17 12/18/17 23:40 00:50 00:50 WBC 22.6 H RBC 2.76 L Hgb 6.7 L Hct 21.6 L MCV 78 L MCH 24 L MCHC 31 L RDW 18.4 H Plt Count Lymph % (Auto) [place] % (Auto) Eos % (Auto) Lymph # [place] # Eos # Baso # Seg Neutrophils % Seg Neuts % (Manual) Lymphocytes % (Manual) Monocytes % (Manual) Eosinophils % (Manual) Nucleated RBC % Seg Neutrophils # Seg Neutrophils # Man Lymphocytes # (Manual) Monocytes # (Manual) Eosinophils # (Manual) PT INR POC ABG pH POC ABG pCO2 POC ABG pO2 Sodium Potassium Chloride Carbon Dioxide BUN 22 H Creatinine 1.6 H Glucose 113 H POC Glucose 120 H Lactic Acid Calcium 7.8 L Phosphorus Magnesium 1.50 L AST ALT Alkaline Phosphatase Troponin T C-Reactive Protein Total Protein Albumin LDL Cholesterol Direct HDL Cholesterol Urine Creatinine Hepatitis C Antibody Crossmatch Crossmatch [facility] 12/18/17 12/18/17 12/18/17 05:34 12:00 18:07 WBC RBC Hgb Hct MCV MCH MCHC RDW Plt Count Lymph % (Auto) [place] % (Auto) Eos % (Auto) Lymph # [place] # Eos # Baso # Seg Neutrophils % Seg Neuts % (Manual) Lymphocytes % (Manual) Monocytes % (Manual) Eosinophils % (Manual) Nucleated RBC % Seg Neutrophils # Seg Neutrophils # Man Lymphocytes # (Manual) Monocytes # (Manual) Eosinophils # (Manual) PT INR POC ABG pH POC ABG pCO2 POC ABG pO2 Sodium Potassium Chloride Carbon Dioxide BUN Creatinine Glucose POC Glucose 132 H 136 H 122 H Lactic Acid Calcium Phosphorus Magnesium AST ALT Alkaline Phosphatase Troponin T C-Reactive Protein Total Protein Albumin LDL Cholesterol Direct HDL Cholesterol Urine Creatinine Hepatitis C Antibody Crossmatch Crossmatch [facility] 12/19/17 12/19/17 12/19/17 00:24 00:24 05:17 WBC 15.4 H RBC 2.41 L Hgb 6.1 L Hct 19.0 L* MCV 79 L MCH 25 L MCHC RDW 18.5 H Plt Count Lymph % (Auto) [place] % (Auto) Eos % (Auto) Lymph # [place] # Eos # Baso # Seg Neutrophils % Seg Neuts % (Manual) Lymphocytes % (Manual) Monocytes % (Manual) Eosinophils % (Manual) Nucleated RBC % Seg Neutrophils # Seg Neutrophils # Man Lymphocytes # (Manual) Monocytes # (Manual) Eosinophils # (Manual) PT INR POC ABG pH POC ABG pCO2 POC ABG pO2 Sodium Potassium 3.2 L Chloride Carbon Dioxide BUN Creatinine Glucose 117 H POC Glucose 132 H Lactic Acid Calcium 8.2 L Phosphorus Magnesium 1.50 L AST ALT Alkaline Phosphatase Troponin T C-Reactive Protein Total Protein Albumin LDL Cholesterol Direct HDL Cholesterol Urine Creatinine Hepatitis C Antibody Crossmatch Crossmatch [facility] 12/19/17 12/19/17 12/19/17 09:00 09:00 18:01 WBC 12.4 H RBC 2.86 L Hgb 7.2 L Hct 22.6 L MCV 79 L MCH 25 L MCHC RDW 17.2 H Plt Count Lymph % (Auto) 6.8 L [place] % (Auto) 12.6 H Eos % (Auto) Lymph # 0.8 L [place] # 1.6 H Eos # Baso # Seg Neutrophils % 80.1 H Seg Neuts % (Manual) Lymphocytes % (Manual) Monocytes % (Manual) Eosinophils % (Manual) Nucleated RBC % Seg Neutrophils # 10.0 H Seg Neutrophils # Man Lymphocytes # (Manual) Monocytes # (Manual) Eosinophils # (Manual) PT INR POC ABG pH POC ABG pCO2 POC ABG pO2 Sodium Potassium 3.1 L Chloride Carbon Dioxide BUN 22 H Creatinine Glucose 113 H POC Glucose 117 H Lactic Acid Calcium 8.3 L Phosphorus Magnesium AST 54 H ALT Alkaline Phosphatase 204 H Troponin T C-Reactive Protein Total Protein 5.8 L Albumin 2.0 L LDL Cholesterol Direct HDL Cholesterol Urine Creatinine Hepatitis C Antibody Crossmatch Crossmatch [facility] 12/19/17 12/20/17 12/20/17 23:49 05:53 19:00 WBC RBC 3.03 L Hgb 7.7 L Hct 23.7 L MCV 78 L MCH 25 L MCHC RDW 17.2 H Plt Count Lymph % (Auto) [place] % (Auto) Eos % (Auto) Lymph # [place] # Eos # Baso # Seg Neutrophils % Seg Neuts % (Manual) 74.0 H Lymphocytes % (Manual) 6.0 L Monocytes % (Manual) 17.0 H Eosinophils % (Manual) Nucleated RBC % Seg Neutrophils # Seg Neutrophils # Man Lymphocytes # (Manual) 0.5 L Monocytes # (Manual) 1.5 H Eosinophils # (Manual) PT INR POC ABG pH POC ABG pCO2 POC ABG pO2 Sodium Potassium Chloride Carbon Dioxide BUN Creatinine Glucose POC Glucose 125 H 124 H Lactic Acid Calcium Phosphorus Magnesium AST ALT Alkaline Phosphatase Troponin T C-Reactive Protein Total Protein Albumin LDL Cholesterol Direct HDL Cholesterol Urine Creatinine Hepatitis C Antibody Crossmatch Crossmatch [facility] 12/20/17 12/21/17 12/22/17 19:00 23:54 05:07 WBC RBC Hgb Hct MCV MCH MCHC RDW Plt Count Lymph % (Auto) [place] % (Auto) Eos % (Auto) Lymph # [place] # Eos # Baso # Seg Neutrophils % Seg Neuts % (Manual) Lymphocytes % (Manual) Monocytes % (Manual) Eosinophils % (Manual) Nucleated RBC % Seg Neutrophils # Seg Neutrophils # Man Lymphocytes # (Manual) Monocytes # (Manual) Eosinophils # (Manual) PT INR POC ABG pH POC ABG pCO2 POC ABG pO2 Sodium Potassium 3.3 L 2.9 L* Chloride Carbon Dioxide BUN 37 H 43 H Creatinine Glucose 114 H POC Glucose 109 H Lactic Acid Calcium 8.3 L 7.8 L Phosphorus 1.60 L Magnesium 1.50 L AST ALT Alkaline Phosphatase Troponin T C-Reactive Protein Total Protein Albumin LDL Cholesterol Direct HDL Cholesterol Urine Creatinine Hepatitis C Antibody Crossmatch Crossmatch [facility] 12/22/17 12/22/17 12/22/17 05:07 05:07 06:02 WBC 4.1 L RBC 3.09 L Hgb 7.7 L Hct 24.3 L MCV 79 L MCH 25 L MCHC RDW 17.8 H Plt Count Lymph % (Auto) [place] % (Auto) Eos % (Auto) Lymph # [place] # Eos # Baso # Seg Neutrophils % Seg Neuts % (Manual) Lymphocytes % (Manual) Monocytes % (Manual) Eosinophils % (Manual) Nucleated RBC % Seg Neutrophils # Seg Neutrophils # Man Lymphocytes # (Manual) Monocytes # (Manual) Eosinophils # (Manual) PT INR POC ABG pH POC ABG pCO2 POC ABG pO2 Sodium Potassium Chloride Carbon Dioxide BUN Creatinine Glucose POC Glucose 107 H Lactic Acid Calcium Phosphorus Magnesium 1.60 L AST ALT Alkaline Phosphatase Troponin T C-Reactive Protein Total Protein Albumin LDL Cholesterol Direct HDL Cholesterol Urine Creatinine Hepatitis C Antibody Crossmatch Crossmatch [facility] 12/22/17 12/22/17 12/22/17 10:50 12:02 17:32 WBC RBC Hgb Hct MCV MCH MCHC RDW Plt Count Lymph % (Auto) [place] % (Auto) Eos % (Auto) Lymph # [place] # Eos # Baso # Seg Neutrophils % Seg Neuts % (Manual) Lymphocytes % (Manual) Monocytes % (Manual) Eosinophils % (Manual) Nucleated RBC % Seg Neutrophils # Seg Neutrophils # Man Lymphocytes # (Manual) Monocytes # (Manual) Eosinophils # (Manual) PT INR POC ABG pH POC ABG pCO2 POC ABG pO2 Sodium Potassium Chloride Carbon Dioxide BUN Creatinine Glucose POC Glucose 129 H 111 H Lactic Acid Calcium Phosphorus Magnesium AST ALT Alkaline Phosphatase Troponin T C-Reactive Protein Total Protein Albumin LDL Cholesterol Direct HDL Cholesterol Urine Creatinine 55.8 H Hepatitis C Antibody Crossmatch Crossmatch [facility] 12/22/17 12/22/17 12/23/17 19:03 23:57 05:55 WBC RBC Hgb Hct MCV MCH MCHC RDW Plt Count Lymph % (Auto) [place] % (Auto) Eos % (Auto) Lymph # [place] # Eos # Baso # Seg Neutrophils % Seg Neuts % (Manual) Lymphocytes % (Manual) Monocytes % (Manual) Eosinophils % (Manual) Nucleated RBC % Seg Neutrophils # Seg Neutrophils # Man Lymphocytes # (Manual) Monocytes # (Manual) Eosinophils # (Manual) PT INR POC ABG pH POC ABG pCO2 POC ABG pO2 Sodium Potassium 3.4 L 2.9 L* Chloride Carbon Dioxide BUN 40 H Creatinine Glucose 107 H POC Glucose 128 H Lactic Acid Calcium 7.9 L Phosphorus Magnesium AST ALT Alkaline Phosphatase Troponin T C-Reactive Protein Total Protein Albumin LDL Cholesterol Direct HDL Cholesterol Urine Creatinine Hepatitis C Antibody Crossmatch Crossmatch [facility] 12/23/17 12/23/17 12/23/17 05:55 05:55 11:59 WBC 3.8 L RBC 3.10 L Hgb 7.7 L Hct 25.5 L MCV 82 L MCH 25 L MCHC 30 L RDW 17.9 H Plt Count Lymph % (Auto) [place] % (Auto) Eos % (Auto) Lymph # [place] # Eos # Baso # Seg Neutrophils % Seg Neuts % (Manual) Lymphocytes % (Manual) Monocytes % (Manual) Eosinophils % (Manual) Nucleated RBC % Seg Neutrophils # Seg Neutrophils # Man Lymphocytes # (Manual) Monocytes # (Manual) Eosinophils # (Manual) PT INR POC ABG pH POC ABG pCO2 POC ABG pO2 Sodium Potassium Chloride Carbon Dioxide BUN Creatinine Glucose POC Glucose 115 H Lactic Acid Calcium Phosphorus Magnesium 1.60 L AST ALT Alkaline Phosphatase Troponin T C-Reactive Protein Total Protein Albumin LDL Cholesterol Direct HDL Cholesterol Urine Creatinine Hepatitis C Antibody Crossmatch Crossmatch [facility] 12/23/17 12/24/17 12/24/17 22:48 00:29 03:17 WBC RBC Hgb Hct MCV MCH MCHC RDW Plt Count Lymph % (Auto) [place] % (Auto) Eos % (Auto) Lymph # [place] # Eos # Baso # Seg Neutrophils % Seg Neuts % (Manual) Lymphocytes % (Manual) Monocytes % (Manual) Eosinophils % (Manual) Nucleated RBC % Seg Neutrophils # Seg Neutrophils # Man Lymphocytes # (Manual) Monocytes # (Manual) Eosinophils # (Manual) PT INR POC ABG pH POC ABG pCO2 POC ABG pO2 Sodium 146 H Potassium 2.9 L* 3.4 L Chloride Carbon Dioxide BUN 36 H Creatinine 0.7 L Glucose POC Glucose 111 H Lactic Acid Calcium 7.5 L Phosphorus Magnesium 1.60 L AST 76 H ALT 59 H Alkaline Phosphatase 294 H Troponin T C-Reactive Protein Total Protein 5.8 L Albumin 2.2 L LDL Cholesterol Direct HDL Cholesterol Urine Creatinine Hepatitis C Antibody Crossmatch Crossmatch [facility] 12/24/17 12/24/17 12/24/17 03:17 05:14 17:05 WBC RBC 3.03 L Hgb 7.6 L Hct 23.7 L MCV 78 L MCH 25 L MCHC RDW 17.8 H Plt Count Lymph % (Auto) [place] % (Auto) Eos % (Auto) Lymph # [place] # Eos # Baso # Seg Neutrophils % Seg Neuts % (Manual) Lymphocytes % (Manual) Monocytes % (Manual) Eosinophils % (Manual) Nucleated RBC % Seg Neutrophils # Seg Neutrophils # Man Lymphocytes # (Manual) Monocytes # (Manual) Eosinophils # (Manual) PT INR POC ABG pH POC ABG pCO2 POC ABG pO2 Sodium Potassium Chloride Carbon Dioxide BUN Creatinine Glucose POC Glucose 127 H 132 H Lactic Acid Calcium Phosphorus Magnesium AST ALT Alkaline Phosphatase Troponin T C-Reactive Protein Total Protein Albumin LDL Cholesterol Direct HDL Cholesterol Urine Creatinine Hepatitis C Antibody Crossmatch Crossmatch [facility] 12/25/17 12/25/17 12/25/17 00:03 04:34 06:25 WBC RBC Hgb Hct MCV MCH MCHC RDW Plt Count Lymph % (Auto) [place] % (Auto) Eos % (Auto) Lymph # [place] # Eos # Baso # Seg Neutrophils % Seg Neuts % (Manual) Lymphocytes % (Manual) Monocytes % (Manual) Eosinophils % (Manual) Nucleated RBC % Seg Neutrophils # Seg Neutrophils # Man Lymphocytes # (Manual) Monocytes # (Manual) Eosinophils # (Manual) PT INR POC ABG pH POC ABG pCO2 POC ABG pO2 Sodium Potassium Chloride Carbon Dioxide BUN 30 H Creatinine 0.6 L Glucose 114 H POC Glucose 128 H 136 H Lactic Acid Calcium 7.5 L Phosphorus Magnesium AST 84 H ALT 82 H Alkaline Phosphatase 322 H Troponin T C-Reactive Protein Total Protein 6.0 L Albumin 2.3 L LDL Cholesterol Direct HDL Cholesterol Urine Creatinine Hepatitis C Antibody Crossmatch Crossmatch [facility] 12/25/17 12/25/17 12/26/17 12:02 18:28 00:03 WBC RBC Hgb Hct MCV MCH MCHC RDW Plt Count Lymph % (Auto) [place] % (Auto) Eos % (Auto) Lymph # [place] # Eos # Baso # Seg Neutrophils % Seg Neuts % (Manual) Lymphocytes % (Manual) Monocytes % (Manual) Eosinophils % (Manual) Nucleated RBC % Seg Neutrophils # Seg Neutrophils # Man Lymphocytes # (Manual) Monocytes # (Manual) Eosinophils # (Manual) PT INR POC ABG pH POC ABG pCO2 POC ABG pO2 Sodium Potassium Chloride Carbon Dioxide BUN Creatinine Glucose POC Glucose 158 H 113 H 117 H Lactic Acid Calcium Phosphorus Magnesium AST ALT Alkaline Phosphatase Troponin T C-Reactive Protein Total Protein Albumin LDL Cholesterol Direct HDL Cholesterol Urine Creatinine Hepatitis C Antibody Crossmatch Crossmatch [facility] 12/26/17 12/26/17 12/26/17 04:26 06:35 08:47 WBC RBC Hgb Hct MCV MCH MCHC RDW Plt Count Lymph % (Auto) [place] % (Auto) Eos % (Auto) Lymph # [place] # Eos # Baso # Seg Neutrophils % Seg Neuts % (Manual) Lymphocytes % (Manual) Monocytes % (Manual) Eosinophils % (Manual) Nucleated RBC % Seg Neutrophils # Seg Neutrophils # Man Lymphocytes # (Manual) Monocytes # (Manual) Eosinophils # (Manual) PT INR POC ABG pH POC ABG pCO2 POC ABG pO2 Sodium Potassium 5.4 H D 3.3 L D Chloride Carbon Dioxide 21 L BUN 39 H Creatinine 0.7 L Glucose 121 H POC Glucose 122 H Lactic Acid Calcium 7.8 L Phosphorus Magnesium AST 144 H ALT 98 H Alkaline Phosphatase 330 H Troponin T C-Reactive Protein Total Protein 6.1 L Albumin 2.1 L LDL Cholesterol Direct HDL Cholesterol Urine Creatinine Hepatitis C Antibody Crossmatch Crossmatch [facility] 12/26/17 12/26/17 12/27/17 12:29 18:27 07:34 WBC RBC Hgb Hct MCV MCH MCHC RDW Plt Count Lymph % (Auto) [place] % (Auto) Eos % (Auto) Lymph # [place] # Eos # Baso # Seg Neutrophils % Seg Neuts % (Manual) Lymphocytes % (Manual) Monocytes % (Manual) Eosinophils % (Manual) Nucleated RBC % Seg Neutrophils # Seg Neutrophils # Man Lymphocytes # (Manual) Monocytes # (Manual) Eosinophils # (Manual) PT INR POC ABG pH POC ABG pCO2 POC ABG pO2 Sodium Potassium 3.1 L Chloride Carbon Dioxide BUN Creatinine 0.5 L Glucose POC Glucose 128 H 121 H Lactic Acid Calcium 7.7 L Phosphorus Magnesium AST 74 H ALT 80 H Alkaline Phosphatase 306 H Troponin T C-Reactive Protein Total Protein 6.1 L Albumin 2.1 L LDL Cholesterol Direct HDL Cholesterol Urine Creatinine Hepatitis C Antibody Crossmatch Crossmatch [facility] 12/27/17 12/28/1712/28/18 07:34 04:59 04:59 WBC 11.1 H RBC 3.00 L Hgb 7.2 L Hct 23.6 L MCV 79 L MCH 24 L MCHC 31 L RDW 18.3 H Plt Count Lymph % (Auto) 10.0 L [place] % (Auto) 10.2 H Eos % (Auto) 6.7 H Lymph # 1.1 L [place] # 1.1 H Eos # 0.7 H Baso # Seg Neutrophils % 72.1 H Seg Neuts % (Manual) Lymphocytes % (Manual) Monocytes % (Manual) Eosinophils % (Manual) Nucleated RBC % Seg Neutrophils # 8.0 H Seg Neutrophils # Man Lymphocytes # (Manual) Monocytes # (Manual) Eosinophils # (Manual) PT INR POC ABG pH POC ABG pCO2 POC ABG pO2 Sodium Potassium Chloride Carbon Dioxide BUN Creatinine 0.4 L Glucose 102 H POC Glucose Lactic Acid Calcium 7.8 L Phosphorus Magnesium 1.30 L AST 58 H ALT 62 H Alkaline Phosphatase 274 H Troponin T C-Reactive Protein Total Protein 6.0 L Albumin 2.0 L LDL Cholesterol Direct HDL Cholesterol Urine Creatinine Hepatitis C Antibody Crossmatch Crossmatch [facility] 12/28/17 12/29/17 12/29/17 18:06 04:02 04:02 WBC RBC Hgb Hct MCV MCH MCHC RDW Plt Count Lymph % (Auto) [place] % (Auto) Eos % (Auto) Lymph # [place] # Eos # Baso # Seg Neutrophils % Seg Neuts % (Manual) Lymphocytes % (Manual) Monocytes % (Manual) Eosinophils % (Manual) Nucleated RBC % Seg Neutrophils # Seg Neutrophils # Man Lymphocytes # (Manual) Monocytes # (Manual) Eosinophils # (Manual) PT INR POC ABG pH POC ABG pCO2 POC ABG pO2 Sodium Potassium Chloride Carbon Dioxide BUN Creatinine 0.5 L Glucose POC Glucose 107 H Lactic Acid Calcium 7.8 L Phosphorus Magnesium 1.40 L AST 50 H ALT Alkaline Phosphatase 311 H Troponin T C-Reactive Protein Total Protein 5.9 L Albumin 2.3 L LDL Cholesterol Direct HDL Cholesterol Urine Creatinine Hepatitis C Antibody Crossmatch Crossmatch [facility] 12/29/17 12/29/17 12/30/17 12:10 17:33 04:46 WBC RBC Hgb Hct MCV MCH MCHC RDW Plt Count Lymph % (Auto) [place] % (Auto) Eos % (Auto) Lymph # [place] # Eos # Baso # Seg Neutrophils % Seg Neuts % (Manual) Lymphocytes % (Manual) Monocytes % (Manual) Eosinophils % (Manual) Nucleated RBC % Seg Neutrophils # Seg Neutrophils # Man Lymphocytes # (Manual) Monocytes # (Manual) Eosinophils # (Manual) PT INR POC ABG pH POC ABG pCO2 POC ABG pO2 Sodium Potassium Chloride Carbon Dioxide BUN Creatinine 0.5 L Glucose POC Glucose 124 H 108 H Lactic Acid Calcium 8.2 L Phosphorus Magnesium AST ALT Alkaline Phosphatase 288 H Troponin T C-Reactive Protein Total Protein Albumin 2.4 L LDL Cholesterol Direct HDL Cholesterol Urine Creatinine Hepatitis C Antibody Crossmatch Crossmatch [facility] 12/30/17 12/31/17 12/31/17 04:46 04:03 04:03 WBC RBC Hgb Hct MCV MCH MCHC RDW Plt Count Lymph % (Auto) [place] % (Auto) Eos % (Auto) Lymph # [place] # Eos # Baso # Seg Neutrophils % Seg Neuts % (Manual) Lymphocytes % (Manual) Monocytes % (Manual) Eosinophils % (Manual) Nucleated RBC % Seg Neutrophils # Seg Neutrophils # Man Lymphocytes # (Manual) Monocytes # (Manual) Eosinophils # (Manual) PT INR POC ABG pH POC ABG pCO2 POC ABG pO2 Sodium Potassium Chloride Carbon Dioxide BUN Creatinine 0.4 L Glucose 103 H POC Glucose Lactic Acid Calcium 8.1 L Phosphorus Magnesium 1.50 L 1.30 L AST ALT Alkaline Phosphatase Troponin T C-Reactive Protein Total Protein Albumin LDL Cholesterol Direct HDL Cholesterol Urine Creatinine Hepatitis C Antibody Crossmatch Crossmatch [facility] 12/31/17 12/31/17 01/01/18 16:56 23:55 04:26 WBC RBC Hgb Hct MCV MCH MCHC RDW Plt Count Lymph % (Auto) [place] % (Auto) Eos % (Auto) Lymph # [place] # Eos # Baso # Seg Neutrophils % Seg Neuts % (Manual) Lymphocytes % (Manual) Monocytes % (Manual) Eosinophils % (Manual) Nucleated RBC % Seg Neutrophils # Seg Neutrophils # Man Lymphocytes # (Manual) Monocytes # (Manual) Eosinophils # (Manual) PT INR POC ABG pH POC ABG pCO2 POC ABG pO2 Sodium Potassium 3.5 L Chloride Carbon Dioxide BUN Creatinine 0.3 L Glucose 105 H POC Glucose 106 H 108 H Lactic Acid Calcium 7.9 L Phosphorus Magnesium AST ALT Alkaline Phosphatase Troponin T C-Reactive Protein Total Protein Albumin LDL Cholesterol Direct HDL Cholesterol Urine Creatinine Hepatitis C Antibody Crossmatch Crossmatch [facility] 01/01/18 01/01/18 01/02/18 04:26 05:26 03:45 WBC RBC 3.07 L Hgb 7.6 L Hct 24.1 L MCV 78 L MCH 25 L MCHC 31 L RDW 18.2 H Plt Count Lymph % (Auto) [place] % (Auto) Eos % (Auto) Lymph # [place] # Eos # Baso # Seg Neutrophils % Seg Neuts % (Manual) 72.0 H Lymphocytes % (Manual) 13.0 L Monocytes % (Manual) Eosinophils % (Manual) 7.0 H Nucleated RBC % 1.0 H Seg Neutrophils # Seg Neutrophils # Man Lymphocytes # (Manual) Monocytes # (Manual) Eosinophils # (Manual) 0.7 H PT INR POC ABG pH POC ABG pCO2 POC ABG pO2 Sodium 134 L Potassium Chloride Carbon Dioxide BUN Creatinine 0.4 L Glucose POC Glucose 107 H Lactic Acid Calcium 8.1 L Phosphorus Magnesium AST ALT Alkaline Phosphatase Troponin T C-Reactive Protein Total Protein Albumin LDL Cholesterol Direct HDL Cholesterol Urine Creatinine Hepatitis C Antibody Crossmatch Crossmatch [facility] 01/02/18 01/03/18 01/04/18 03:45 12:15 00:25 WBC 13.1 H RBC 3.17 L Hgb 7.5 L Hct 24.8 L MCV 78 L MCH 24 L MCHC 31 L RDW 18.2 H Plt Count Lymph % (Auto) 11.0 L [place] % (Auto) 8.8 H Eos % (Auto) Lymph # [place] # 1.2 H Eos # 0.5 H Baso # 0.2 H Seg Neutrophils % 74.7 H Seg Neuts % (Manual) Lymphocytes % (Manual) Monocytes % (Manual) Eosinophils % (Manual) Nucleated RBC % Seg Neutrophils # 9.8 H Seg Neutrophils # Man Lymphocytes # (Manual) Monocytes # (Manual) Eosinophils # (Manual) PT INR POC ABG pH POC ABG pCO2 POC ABG pO2 Sodium Potassium Chloride Carbon Dioxide BUN Creatinine Glucose POC Glucose 137 H < 40 L Lactic Acid Calcium Phosphorus Magnesium AST ALT Alkaline Phosphatase Troponin T C-Reactive Protein Total Protein Albumin LDL Cholesterol Direct HDL Cholesterol Urine Creatinine Hepatitis C Antibody Crossmatch Crossmatch [facility] 01/04/18 01/04/18 01/06/18 04:31 12:52 04:42 WBC 11.1 H 11.8 H RBC 3.18 L 3.05 L Hgb 7.7 L 7.4 L Hct 24.8 L 23.7 L MCV 78 L 78 L MCH 24 L 24 L MCHC 31 L 31 L RDW 18.4 H 18.7 H Plt Count Lymph % (Auto) 9.2 L [place] % (Auto) 7.6 H Eos % (Auto) Lymph # 1.1 L [place] # 0.9 H Eos # 0.5 H Baso # Seg Neutrophils % 78.0 H Seg Neuts % (Manual) Lymphocytes % (Manual) Monocytes % (Manual) Eosinophils % (Manual) Nucleated RBC % Seg Neutrophils # 9.2 H Seg Neutrophils # Man Lymphocytes # (Manual) Monocytes # (Manual) Eosinophils # (Manual) PT INR POC ABG pH POC ABG pCO2 POC ABG pO2 Sodium Potassium Chloride Carbon Dioxide 19 L BUN Creatinine 0.3 L Glucose 47 L POC Glucose Lactic Acid Calcium 8.0 L Phosphorus Magnesium AST ALT Alkaline Phosphatase Troponin T C-Reactive Protein Total Protein Albumin LDL Cholesterol Direct HDL Cholesterol Urine Creatinine Hepatitis C Antibody Crossmatch Crossmatch [facility] 01/06/18 01/07/18 01/07/18 04:42 07:29 23:54 WBC RBC Hgb Hct MCV MCH MCHC RDW Plt Count Lymph % (Auto) [place] % (Auto) Eos % (Auto) Lymph # [place] # Eos # Baso # Seg Neutrophils % Seg Neuts % (Manual) Lymphocytes % (Manual) Monocytes % (Manual) Eosinophils % (Manual) Nucleated RBC % Seg Neutrophils # Seg Neutrophils # Man Lymphocytes # (Manual) Monocytes # (Manual) Eosinophils # (Manual) PT INR POC ABG pH POC ABG pCO2 POC ABG pO2 Sodium 133 L Potassium Chloride Carbon Dioxide 20 L BUN Creatinine 0.3 L Glucose POC Glucose 110 H 116 H Lactic Acid Calcium 8.0 L Phosphorus Magnesium AST ALT Alkaline Phosphatase Troponin T C-Reactive Protein Total Protein Albumin LDL Cholesterol Direct HDL Cholesterol Urine Creatinine Hepatitis C Antibody Crossmatch Crossmatch [facility] 01/08/18 01/08/18 04:12 04:12 WBC 11.7 H RBC 3.11 L Hgb 7.4 L Hct 24.4 L MCV 79 L MCH 24 L MCHC 31 L RDW 18.4 H Plt Count Lymph % (Auto) [place] % (Auto) Eos % (Auto) Lymph # [place] # Eos # Baso # Seg Neutrophils % Seg Neuts % (Manual) Lymphocytes % (Manual) Monocytes % (Manual) Eosinophils % (Manual) Nucleated RBC % Seg Neutrophils # Seg Neutrophils # Man Lymphocytes # (Manual) Monocytes # (Manual) Eosinophils # (Manual) PT INR POC ABG pH POC ABG pCO2 POC ABG pO2 Sodium Potassium Chloride Carbon Dioxide BUN Creatinine 0.3 L Glucose POC Glucose Lactic Acid Calcium 8.3 L Phosphorus Magnesium AST ALT Alkaline Phosphatase Troponin T C-Reactive Protein Total Protein Albumin LDL Cholesterol Direct HDL Cholesterol Urine Creatinine Hepatitis C Antibody Crossmatch Crossmatch [facility]
[2018-01-08] MEDS ORDERED: VERSED IV ONE ×2 (09:19→13:23)
[2018-01-08] MEDS ORDERED: SUBLIMAZE IV ONE (09:19)
[2018-01-08] MEDS: PREVACID SOLUTAB FEEDTUBE SCH ×2 (10:42→21:04)
[2018-01-08] MEDS: LOPRESSOR PO SCH ×2 (10:42→21:04)
[2018-01-08] MEDS: MAG-OX PO SCH ×2 (10:43→21:04)
[2018-01-08] MEDS: POTASSIUM CHLORIDE FEEDTUBE SCH ×2 (10:43→21:04)
[2018-01-08] MEDS ORDERED: SUBLIMAZE ONE (13:24)
--- NOTE | 2018-01-08 14:38 | Post Operative Note ---
Date of procedure: 01/08/18 Pre-op diagnosis: Fluid collections Post-op diagnosis: same Procedure: CT guided placement of an 8 Fr drain in the perigastric collection CT guided placement of a 12 Fr drain in the pelvic collection Anesthesia: local (w/ conscious sedation) Surgeon: NICCI HONG Estimated blood loss: minimal Specimen disposition: to lab Condition: stable Disposition: ICU
--- NOTE | 2018-01-08 15:46 | Progress Note ---
Assessment and Plan Assessment and plan: Mr. 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 He had a Carotid doppler done that revealed a right ICA 50-79% stenosis. CTA of the neck revealed 80% stenosis of the right ICA with probable 50% stenosis of the origin of the right common carotid artery. His symptoms were thought to be due to the Carotid artery stenosis which was disheartening since he was on Aspirin and plavix. He was scheduled for right CEA but needed Cardiac clearance. He underwent stress test on 10/05/17 and Acute Care Occupational Therapist stated he was stable for non-cardiac history, low to moderate perioperative risk. So, he underwent right carotid enarterectomy on 10/09/17. Following the surgery, he developed recurrent left sided weakness/hemiparesis and was taken back to the OR on 10/10/17 for Open Thrombectomy of Right Internal Carotid Artery and Injection of tPA into the Artery. CT head obtained 2 days after surgery on 10/12 showed massive right cerebral hemisphere acute CVA with midline shift. He was subsequently discharged on 11/10/17 to [facility] but returned to [facility] ED and was re-admitted on 11/12/17 for suspected sepsis due to Aspiration post-obstructive pneumonia with suspected mucus plug and subsequently intubated on admission. On 11/20/17, patient went for Tracheostomy by Dr. Hughes, ENT. Then on 11/21/17 patient went into shock, most likely sepsis as WBC went up to 38.2k; initially thought to be due worsening aspiration pneumonia but it was discovered that he had a dislodged PEG tube from the Nursing, most likely present on admission, which lead to the shock from severe intra-abdominal infection/ peritonitis requiring IR drainage and General surgery drainage. Assessment and plan --Peritonitis: from dislodged peg tube s/pcomplete course of antibiotics, Multiple surgical procedures with intra- abdominal drainage placement IR and surgery evaluated the patient, Continue current management, awaiting for wound healing Possible new peg placement when output of the drains, improved and clears, discussed his surgeon today --Acute hypoxic respiratory failure; requiring mechanical ventilation more than 96% Status post tracheostomy, continue trach care, nebulizers, oxygen --Aspiration pneumonia; received complete treatment, resolved --Acute kidney injury; secondary to ATN Requiring intermittent dialysis as needed --Chronic anemia; received total 3 units of PRBC, closely monitor H&H transfuse as needed --Hypernatremia/hypokalemia/hypomagnesemia; Closely monitor electrolytes and adjust as needed --History of carotid endarterectomy; supportive care --Metabolic encephalopathy; supportive care --Severe malnutrition; nutrition supplements and feeding --DVT prophylaxis; SCDs --Full CODE STATUS Patient is critically ill, recommend hospice Consults and recommendations noted DC planning per case management LTAC declined admission Discussed with surgery, drain removed, Once feeding tube established and ngt removed, we can plan on discharge discussed with case management to see if an arrangement can be made with the LTAC. KILEY is daughter, Eugenie [phone], ct abd/pelvis ordered History Interval history: Patient was seen and examined. following command on the right Hospitalist Physical - Physical exam Narrative exam: General appearance: Present: no acute distress, cachectic, disheveled, other ( tracheostomy on T piece) - EENT Eyes: Present: PERRL, EOM intact - Neck Neck: Present: supple, other (tracheostomy on T piece) - Respiratory Respiratory effort: normal Respiratory: bilateral: diminished, rhonchi, negative: wheezing - Cardiovascular Rhythm: regular Heart Sounds: Present: S1 & S2 - Extremities Extremities: no ischemia Extremity abnormal: edema - Abdominal General gastrointestinal: soft, non-tender, non-distended, other - Integumentary Integumentary: Present: clear, warm - Psychiatric Psychiatric: other (unresponsive) - Neurologic Neurologic: other (noncommunicative) left sided neglect - Constitutional Vitals: Temp Pulse Resp BP Pulse Ox 98.6 F 100 H 27 H 145/93 100 01/08/18 11:51 01/08/18 13:51 01/08/18 14:13 01/08/18 13:51 01/08/18 13:51 General appearance: Present: no acute distress, cachectic, disheveled, other ( tracheostomy on T piece) Results - Labs CBC & Chem 7: 01/08/18 04:12 01/08/18 04:12 Labs: Laboratory Last Values WBC 11.7 K/mm3 (4.5-11.0) H 10/19/18 04:12 RBC 3.11 M/mm3 (3.65-5.03) L 01/08/18 04:12 Hgb 7.4 gm/dl (11.8-15.2) L 01/08/18 04:12 Hct 24.4 % (35.5-45.6) L 01/08/18 04:12 MCV 79 fl (84-94) L 01/08/18 04:12 MCH 24 pg (28-32) L 01/08/18 04:12 MCHC 31 % (32-34) L 01/08/18 04:12 RDW 18.4 % (13.2-15.2) H 01/08/18 04:12 Plt Count 214 K/mm3 (140-440) 01/08/18 04:12 Lymph % (Auto) 9.2 % (13.4-35.0) L 01/06/18 04:42 [place] % (Auto) 7.6 % (0.0-7.3) H 01/06/18 04:42 Eos % (Auto) 4.0 % (0.0-4.3) 01/06/18 04:42 Baso % (Auto) 1.2 % (0.0-1.8) 01/06/18 04:42 Lymph # 1.1 K/mm3 (1.2-5.4) L 01/06/18 04:42 [place] # 0.9 K/mm3 (0.0-0.8) H 01/06/18 04:42 Eos # 0.5 K/mm3 (0.0-0.4) H 01/06/18 04:42 Baso # 0.1 K/mm3 (0.0-0.1) 01/06/18 04:42 Add Manual Diff Complete 01/01/18 04:26 Total Counted 100 01/01/18 04:26 Seg Neutrophils % 78.0 % (40.0-70.0) H 01/06/18 04:42 Seg Neuts % (Manual) 72.0 % (40.0-70.0) H 01/01/18 04:26 Band Neutrophils % 0 % 01/01/18 04:26 Lymphocytes % (Manual) 13.0 % (13.4-35.0) L 01/01/18 04:26 Reactive Lymphs % (Man) 0 % 01/01/18 04:26 Monocytes % (Manual) 7.0 % (0.0-7.3) 01/01/18 04:26 Eosinophils % (Manual) 7.0 % (0.0-4.3) H 01/01/18 04:26 Basophils % (Manual) 1.0 % (0.0-1.8) 01/01/18 04:26 Metamyelocytes % 0 % 01/01/18 04:26 Myelocytes % 0 % 01/01/18 04:26 Promyelocytes % 0 % 01/01/18 04:26 Blast Cells % 0 % 01/01/18 04:26 Nucleated RBC % 1.0 % (0.0-0.9) H 01/01/18 04:26 Seg Neutrophils # 9.2 K/mm3 (1.8-7.7) H 01/06/18 04:42 Seg Neutrophils # Man 7.5 K/mm3 (1.8-7.7) 01/01/18 04:26 Band Neutrophils # 0.0 K/mm3 01/01/18 04:26 Lymphocytes # (Manual) 1.4 K/mm3 (1.2-5.4) 01/01/18 04:26 Abs React Lymphs (Man) 0.0 K/mm3 01/01/18 04:26 Monocytes # (Manual) 0.7 K/mm3 (0.0-0.8) 01/01/18 04:26 Eosinophils # (Manual) 0.7 K/mm3 (0.0-0.4) H 01/01/18 04:26 Basophils # (Manual) 0.1 K/mm3 (0.0-0.1) 01/01/18 04:26 Metamyelocytes # 0.0 K/mm3 01/01/18 04:26 Myelocytes # 0.0 K/mm3 01/01/18 04:26 Promyelocytes # 0.0 K/mm3 01/01/18 04:26 Blast Cells # 0.0 K/mm3 01/01/18 04:26 WBC Morphology Not Reportable 01/01/18 04:26 Hypersegmented Neuts Not Reportable 01/01/18 04:26 Hyposegmented Neuts Not Reportable 01/01/18 04:26 Hypogranular Neuts Not Reportable 01/01/18 04:26 Smudge Cells Not Reportable 01/01/18 04:26 Toxic Granulation Not Reportable 01/01/18 04:26 Toxic Vacuolation Not Reportable 01/01/18 04:26 Dohle Bodies Not Reportable 01/01/18 04:26 Pelger-Huet Anomaly Not Reportable 01/01/18 04:26 Evangelina Rods Not Reportable 01/01/18 04:26 Platelet Estimate Consistent w auto 01/01/18 04:26 Clumped Platelets Not Reportable 01/01/18 04:26 Plt Clumps, EDTA Not Reportable 01/01/18 04:26 Large Platelets Not Reportable 01/01/18 04:26 Giant Platelets Not Reportable 01/01/18 04:26 Platelet Satelliting Not Reportable 01/01/18 04:26 Plt Morphology Comment Not Reportable 01/01/18 04:26 RBC Morphology Not Reportable 01/01/18 04:26 Dimorphic RBCs Not Reportable 01/01/18 04:26 Polychromasia Not Reportable 01/01/18 04:26 Hypochromasia Not Reportable 01/01/18 04:26 Poikilocytosis Not Reportable 01/01/18 04:26 Anisocytosis 1+ 01/01/18 04:26 Microcytosis Not Reportable 01/01/18 04:26 Macrocytosis Not Reportable 01/01/18 04:26 Spherocytes Not Reportable 01/01/18 04:26 Pappenheimer Bodies Not Reportable 01/01/18 04:26 Sickle Cells Not Reportable 01/01/18 04:26 Target Cells Not Reportable 01/01/18 04:26 Tear Drop Cells Not Reportable 01/01/18 04:26 Ovalocytes Not Reportable 01/01/18 04:26 Stomatocytes Few 01/01/18 04:26 Helmet Cells Not Reportable 01/01/18 04:26 [place] Bodies Not Reportable 01/01/18 04:26 Elkin Rings Not Reportable 01/01/18 04:26 Lucretia Cells Not Reportable 01/01/18 04:26 Bite Cells Not Reportable 01/01/18 04:26 Crenated Cell Not Reportable 01/01/18 04:26 Elliptocytes Not Reportable 01/01/18 04:26 Acanthocytes (Spur) Not Reportable 01/01/18 04:26 Rouleaux Not Reportable 01/01/18 04:26 Hemoglobin C Crystals Not Reportable 01/01/18 04:26 Schistocytes Not Reportable 01/01/18 04:26 Malaria parasites Not Reportable 01/01/18 04:26 Santo Bodies Not Reportable 01/01/18 04:26 Hem Pathologist Commnt No 01/01/18 04:26 PT 15.4 Sec. (12.2-14.9) H 12/14/17 05:11 INR 1.17 (0.87-1.13) H 12/14/17 05:11 APTT 33.8 Sec. (24.2-36.6) 11/26/17 06:29 POC ABG pH 7.505 (7.35-7.45) H 11/23/17 04:56 POC ABG pCO2 26.3 (35-45) L 11/23/17 04:56 POC ABG pO2 100 (80-105) 11/23/17 04:56 POC ABG HCO3 20.8 11/23/17 04:56 POC ABG Total CO2 22 11/23/17 04:56 POC ABG O2 Sat 98 11/23/17 04:56 POC ABG Base Excess -2 11/23/17 04:56 FiO2 30 % 11/23/17 04:56 Sodium 138 mmol/L (137-145) 01/08/18 04:12 Potassium 3.9 mmol/L (3.6-5.0) 01/08/18 04:12 Chloride 103.7 mmol/L (98-107) 01/08/18 04:12 Carbon Dioxide 24 mmol/L (22-30) 01/08/18 04:12 Anion Gap 14 mmol/L 01/08/18 04:12 BUN 9 mg/dL (9-20) 01/08/18 04:12 Creatinine 0.3 mg/dL (0.8-1.5) L 01/08/18 04:12 Estimated GFR > 60 ml/min 01/08/18 04:12 BUN/Creatinine Ratio 30 % 01/08/18 04:12 Glucose 79 mg/dL (75-100) 01/08/18 04:12 POC Glucose 89 (70-105) 01/08/18 11:39 Lactic Acid 1.80 mmol/L (0.7-2.0) 11/27/17 04:06 Calcium 8.3 mg/dL (8.4-10.2) L 01/08/18 04:12 Phosphorus 3.40 mg/dL (2.5-4.5) 01/02/18 03:45 Magnesium 1.70 mg/dL (1.7-2.3) 01/02/18 03:45 Total Bilirubin 0.30 mg/dL (0.1-1.2) 12/30/17 04:46 AST 37 units/L (5-40) 12/30/17 04:46 ALT 48 units/L (7-56) 12/30/17 04:46 Alkaline Phosphatase 288 units/L (35-129) H 12/30/17 04:46 Total Creatine Kinase 84 units/L (55-170) 11/12/17 20:03 CK-MB (CK-2) < 1.0 ng/mL (0.0-4.0) 11/12/17 20:03 CK-MB (CK-2) Rel Index 1.1 (0-4) 11/12/17 20:03 Troponin T 0.098 ng/mL (0.00-0.029) H 11/12/17 Unknown C-Reactive Protein 25.70 mg/dL (0.00-1.30) H 11/11/17 23:20 NT-Pro-B Natriuret Pep 792.4 pg/mL (0-900) 11/11/17 23:20 Total Protein 6.6 g/dL (6.3-8.2) 12/30/17 04:46 Albumin 2.4 g/dL (3.9-5) L 12/30/17 04:46 Albumin/Globulin Ratio 0.6 % 12/30/17 04:46 Triglycerides 86 mg/dL (2-149) 11/11/17 23:20 Cholesterol 82 mg/dL (50-199) 11/11/17 23:20 LDL Cholesterol Direct 42 mg/dL (50-130) L 11/11/17 23:20 HDL Cholesterol 24 mg/dL (40-59) L 11/11/17 23:20 Cholesterol/HDL Ratio 3.41 % 11/11/17 23:20 Lipase 30 units/L (13-60) 11/11/17 23:20 Urine Color Nicole (Yellow) 11/11/17 23:09 Urine Turbidity Cloudy (Clear) 11/11/17 23:09 Urine pH 5.0 (5.0-7.0) 11/11/17 23:09 Ur Specific [place] 1.025 (1.003-1.030) 11/11/17 23:09 Urine Protein 100 mg/dl mg/dL (Negative) 11/11/17 23:09 Urine Glucose (UA) 50 mg/dL (Negative) 11/11/17 23:09 Urine Ketones Neg mg/dL (Negative) 11/11/17 23:09 Urine Blood Neg (Negative) 11/11/17 23:09 Urine Nitrite Neg (Negative) 11/11/17 23:09 Urine Bilirubin Neg (Negative) 11/11/17 23:09 Urine Urobilinogen 4.0 mg/dL (<2.0) 11/11/17 23:09 Ur Leukocyte Esterase Neg (Negative) 11/11/17 23:09 Urine WBC (Auto) 5.0 /HPF (0.0-6.0) 11/11/17 23:09 Urine RBC (Auto) 4.0 /HPF (0.0-6.0) 11/11/17 23:09 Urine Bacteria (Auto) 3+ /HPF (Negative) 11/11/17 23:09 Amorphous Crystals 3+ 11/11/17 23:09 Hyaline Casts 76 /LPF 11/11/17 23:09 Urine Mucus 2+ /HPF 11/11/17 23:09 Urine Total Volume 1350 12/22/17 10:50 Urine Creatinine 55.8 mg/dL (0.1-20.0) H 12/22/17 10:50 Ur Creatinine 24 Hour 0.8 (0.8-2.8) 12/22/17 10:50 Hepatitis A IgM Ab Non-reactive (NonReactive) 11/22/17 19:45 Hep Bs Antigen Non-reactive (Negative) 11/22/17 19:45 Hep B Core IgM Ab Non-reactive (NonReactive) 11/22/17 19:45 Hepatitis C Antibody Reactive (NonReactive) A 11/22/17 19:45 Blood Type A POSITIVE 12/16/17 13:01 Antibody Screen Positive 12/16/17 13:01 SANTANA Antibody Screen Cancelled 12/16/17 13:01 Antibody Identification Cold Antibody 12/16/17 13:01 Crossmatch See Detail 12/16/17 13:01 Crossmatch Prewarmed See Detail 12/16/17 13:01
--- NOTE | 2018-01-08 17:49 | Event Note ---
Date: 01/08/[address] Palmer and Jem. Drains were able to be placed in the pelvic collection and collection posterior to stomach. I'm aware that an LTAC has accepted him today. However, I think the best plan would be to allow IR to upsize the drain on Thursday and then place the G-tube soon after. After these procedures are done, then we should transfer him to LTAC.
--- NOTE | 2018-01-09 00:48 | Discharge Summary ---
Providers - Providers Date of Admission: 11/12/17 05:38 Attending physician: MARINO BOLAÑOS MD 11/12/17 06:03 Consult to Physician [CONS] Routine Comment: Consulting Provider: LOU WHITE Physician Instructions: Reason For Exam: coffee ground ngt 11/12/17 12:53 Consult to Physician [CONS] Routine Comment: Consulting Provider: VELASQUEZ HUGHES Physician Instructions: Reason For Exam: Tracheostomy placement 11/14/17 14:00 Consult to Physician [CONS] Routine Comment: Consulting Provider: LANEY KEVIN Physician Instructions: Reason For Exam: sepsis 11/16/17 10:41 Consult to Physician [CONS] Routine Comment: Consulting Provider: ANEL THURMAN Physician Instructions: Reason For Exam: DARYA 11/18/17 16:52 Midline [Consult to PICC Line RN] [CONS] Routine Reason For Exam: IV access Type Line:: Midline 11/21/17 07:19 PICC Line Insertion [Consult to PICC Line RN] [CONS] Urgent Reason For Exam: PICC line placement Type Line:: PICC 11/22/17 13:55 Consult to Physician [CONS] Urgent Comment: Consulting Provider: NICCI HONG Physician Instructions: Reason For Exam: vas catheter placement 11/25/17 16:11 Consult to Physician [CONS] Stat Comment: Consulting Provider: DINORAH RODRIGUEZ Physician Instructions: consult surgery-Dr. Rodriguez for displaced G-tube Reason For Exam: displaced G-tube 11/25/17 20:17 Consult to Interventional Radiology [CONS] Routine Consulting Provider: NICCI MOREIRA Reason For Exam: Abdominal Drain Placement - RUQ/LUQ/pelvis Place consult to:: vascular Notified:: Spencer Phone number called:: already seen Was contact made?: Yes If yes, spoke with:: Dr. Moreira Time called:: 18:00 Comment:: pt had the procedure 11/26/17 10:59 Consult to Physician [CONS] Routine Comment: Consulting Provider: ESE GRANADOS Physician Instructions: Reason For Exam: CRITICAL CARE 11/27/17 08:42 Consult to Wound/ET Nurse [CONS] Routine Reason For Exam: wound eval, Blisters R arm, buttock fold. 12/01/17 10:37 Physical Therapy Evaluation and Treat [CONS] Routine Comment: Reason For Exam: Debility 12/02/17 11:56 Occupational Therapy Evaluate and Treat [CONS] Routine Comment: Reason For Exam: Debility 12/03/17 13:03 Consult to Interventional Radiology [CONS] Routine Consulting Provider: NICCI MOREIRA Reason For Exam: Abd drain placement - LUQ and pelvis Place consult to:: Radialogy Notified:: yes Was contact made?: Yes If yes, spoke with:: Dr. Hong Time called:: 12:30 12/12/17 11:50 Consult to Dietitian/Nutrition [CONS] Routine Physician Instructions: Assess nutrtn needs, initiate, modify, manage TF Reason For Exam: Reason for Consult: Write/Manage Tube Feeding Reason for Consult: Write/Manage Tube Feeding 01/07/18 08:30 Consult to Interventional Radiology [CONS] Routine Consulting Provider: NICCI MOREIRA Reason For Exam: G-J tube and pelvic drain placement Was contact made?: No Primary care physician: EVALUATION ANALYST Hospitalization Reason for admission: peritonitis Condition: Stable Hospital course: Mr. 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 He had a Carotid doppler done that revealed a right ICA 50-79% stenosis. CTA of the neck revealed 80% stenosis of the right ICA with probable 50% stenosis of the origin of the right common carotid artery. His symptoms were thought to be due to the Carotid artery stenosis which was disheartening since he was on Aspirin and plavix. He was scheduled for right CEA but needed Cardiac clearance. He underwent stress test on 10/05/17 and Alkylation Operator stated he was stable for non-cardiac history, low to moderate perioperative risk. So, he underwent right carotid enarterectomy on 10/09/17. Following the surgery, he developed recurrent left sided weakness/hemiparesis and was taken back to the OR on 10/10/17 for Open Thrombectomy of Right Internal Carotid Artery and Injection of tPA into the Artery. CT head obtained 2 days after surgery on 10/12 showed massive right cerebral hemisphere acute CVA with midline shift. He was subsequently discharged on 11/10/17 to [facility] but returned to [facility] ED and was re-admitted on 11/12/17 for suspected sepsis due to Aspiration post-obstructive pneumonia with suspected mucus plug and subsequently intubated on admission. On 11/20/17, patient went for Tracheostomy by Dr. Hughes, ENT. Then on 11/21/17 patient went into shock, most likely sepsis as WBC went up to 38.2k; initially thought to be due worsening aspiration pneumonia but it was discovered that he had a dislodged PEG tube from the Nursing, most likely present on admission, which lead to the shock from severe intra-abdominal infection/ peritonitis requiring IR drainage and General surgery drainage. Plan was to upsize the patients drain and then place a G tube. I am made aware that this will be done at [facility] who has graciously accepted the patient. This will allow for gradual weaning and therapy for this patient. Patient had and extensive and complex stay during the prolonged stay patient was followed by surgery, lead medical technologist, GI and Speed Belt Sander,. As documented below and in the progress notes, the patient drains were removed and one was upsized with the plan to Discharge plan --Peritonitis: s/p complete course of antibiotics, Multiple surgical procedures with intra- abdominal drainage placement IR and surgery evaluated the patient, Continue current management, awaiting for wound healing Possible new peg placement when output of the drains, improved and clears, discussed his surgeon today --Acute hypoxic respiratory failure; requiring mechanical ventilation more than 96% Status post tracheostomy, continue trach care, nebulizers, oxygen --Aspiration pneumonia; received complete treatment, resolved --Acute kidney injury; secondary to ATN Requiring intermittent dialysis as needed --Chronic anemia; received total 3 units of PRBC, closely monitor H&H transfuse as needed --Hypernatremia/hypokalemia/hypomagnesemia; Closely monitor electrolytes and adjust as needed --History of carotid endarterectomy; supportive care --Metabolic encephalopathy; supportive care --Severe malnutrition; nutrition supplements and feeding Disposition: [id number] MEDICARE CERT [facility] Time spent for discharge: 35 mins Core Measure Documentation - Palliative Care Palliative Care/ Comfort Measures: Not Applicable - Core Measures Any of the following diagnoses?: none - VTE Discharge Requirements Deep Vein Thrombosis/Pulmonary Embolism Present on Admission: No Exam - Physical Exam Narrative exam: General appearance: Present: no acute distress, cachectic, disheveled, other ( tracheostomy on T piece) - EENT Eyes: Present: PERRL, EOM intact - Neck Neck: Present: supple, other (tracheostomy on T piece) - Respiratory Respiratory effort: normal Respiratory: bilateral: diminished, rhonchi, negative: wheezing - Cardiovascular Rhythm: regular Heart Sounds: Present: S1 & S2 - Extremities Extremities: no ischemia Extremity abnormal: edema - Abdominal General gastrointestinal: soft, non-tender, non-distended, other - Integumentary Integumentary: Present: clear, warm - Psychiatric Psychiatric: other (unresponsive) - Neurologic Neurologic: other (noncommunicative) left sided neglect - Constitutional Vitals: Temp Pulse Resp BP Pulse Ox 98.2 F 91 H 30 H 154/80 96 01/08/18 23:58 01/09/18 00:00 01/09/18 00:00 01/09/18 00:00 01/09/18 00:00 Plan Activity: advance as tolerated, fall precautions Diet: per dietitian instruction Special Instructions: record daily BP diary Additional Instructions: patient needs consult with GI and surgical consult for G tube placement. May need upsizing of the drain. Resume plavix following gtube/peg tube placement also metoprolol 25 bid if needed for bp control and CAD Follow up with: PRIMARY CAREMD [Primary Care Provider] - 3-5 Days EDEL ARANGO MD [Staff Physician] - 7 Days NICCI HONG MD [Staff Physician] - 7 Days
[2018-01-09 05:48] LABS: Hematocrit 26.3 % (35.5-45.6); Mean Corpuscular HGB Conc 31 % (32-34); Mean Corpuscular Volume 78 fl (84-94); Platelet Count 245 K/mm3 (140-440); Red Blood Count 3.39 M/mm3 (3.65-5.03); Red Cell Distribution Width 18.5 % (13.2-15.2)
[2018-01-09 05:50] LABS: Mean Corpuscular Hemoglobin 24 pg (28-32)
[2018-01-09 06:03] LABS: BUN/Creatinine Ratio 23; Blood Urea Nitrogen 7 mg/dL (9-20); Calcium 8.6 mg/dL (8.4-10.2); Hemolysis Index 5
[2018-01-09] MEDS: NACL 0.45% 1000 ML 1,000 ML IV SCH (06:31)
[2018-01-09 06:42] VITALS: BP 142/86
== END 2018-01-09 11:00 | DRG 3 ==
LOC: ED 22:15 → CC1 11-12 05:38 → IMCU 12-04 22:29
PROVIDERS: ADMIT Internal Medicine; ATTEND Internal Medicine
PROC: 5A1955Z Respiratory Ventilation, Greater than 96 Consecutive Hours (ICD-10-PCS; principal; 2017-11-12)
PROC: 0BH17EZ Insertion of Endotracheal Airway into Trachea, Via Natural or Artificial Opening (ICD-10-PCS; 2017-11-12)
PROC: 06H033Z Insertion of Infusion Device into Inferior Vena Cava, Percutaneous Approach (ICD-10-PCS; 2017-11-12)
PROC: B549ZZA Ultrasonography of Inferior Vena Cava, Guidance (ICD-10-PCS; 2017-11-12)
PROC: 4A033R1 Measurement of Arterial Saturation, Peripheral, Percutaneous Approach (ICD-10-PCS; 2017-11-12)
PROC: 3E0234Z Introduction of Serum, Toxoid and Vaccine into Muscle, Percutaneous Approach (ICD-10-PCS; 2017-11-13)
PROC: 0DJ08ZZ Inspection of Upper Intestinal Tract, Via Natural or Artificial Opening Endoscopic (ICD-10-PCS; 2017-11-18)
PROC: 0B110F4 Bypass Trachea to Cutaneous with Tracheostomy Device, Open Approach (ICD-10-PCS; 2017-11-20)
PROC: 06H033Z Insertion of Infusion Device into Inferior Vena Cava, Percutaneous Approach (ICD-10-PCS; 2017-11-21)
PROC: 5A1D70Z Performance of Urinary Filtration, Intermittent, Less than 6 Hours Per Day (ICD-10-PCS; 2017-11-22)
PROC: 06HN33Z Insertion of Infusion Device into Left Femoral Vein, Percutaneous Approach (ICD-10-PCS; 2017-11-22)
PROC: B54CZZA Ultrasonography of Left Lower Extremity Veins, Guidance (ICD-10-PCS; 2017-11-22)
PROC: 5A1D70Z Performance of Urinary Filtration, Intermittent, Less than 6 Hours Per Day (ICD-10-PCS; 2017-11-23)
PROC: 30233N1 Transfusion of Nonautologous Red Blood Cells into Peripheral Vein, Percutaneous Approach (ICD-10-PCS; 2017-11-24)
PROC: 5A1D70Z Performance of Urinary Filtration, Intermittent, Less than 6 Hours Per Day (ICD-10-PCS; 2017-11-24)
PROC: 05HY33Z Insertion of Infusion Device into Upper Vein, Percutaneous Approach (ICD-10-PCS; 2017-11-24)
PROC: 0W9G30Z Drainage of Peritoneal Cavity with Drainage Device, Percutaneous Approach (ICD-10-PCS; 2017-11-26)
PROC: 0W9G30Z Drainage of Peritoneal Cavity with Drainage Device, Percutaneous Approach (ICD-10-PCS; 2017-11-26)
PROC: BW201ZZ Computerized Tomography (CT Scan) of Abdomen using Low Osmolar Contrast (ICD-10-PCS; 2017-11-26)
PROC: 0D20X0Z Change Drainage Device in Upper Intestinal Tract, External Approach (ICD-10-PCS; 2017-11-26)
PROC: 5A1D70Z Performance of Urinary Filtration, Intermittent, Less than 6 Hours Per Day (ICD-10-PCS; 2017-11-26)
PROC: 5A1D70Z Performance of Urinary Filtration, Intermittent, Less than 6 Hours Per Day (ICD-10-PCS; 2017-11-28)
PROC: 5A1D70Z Performance of Urinary Filtration, Intermittent, Less than 6 Hours Per Day (ICD-10-PCS; 2017-11-30)
PROC: 5A1D70Z Performance of Urinary Filtration, Intermittent, Less than 6 Hours Per Day (ICD-10-PCS; 2017-12-02)
PROC: 0WJG4ZZ Inspection of Peritoneal Cavity, Percutaneous Endoscopic Approach (ICD-10-PCS; 2017-12-03)
PROC: 0WQF4ZZ Repair Abdominal Wall, Percutaneous Endoscopic Approach (ICD-10-PCS; 2017-12-03)
PROC: 3E1M38Z Irrigation of Peritoneal Cavity using Irrigating Substance, Percutaneous Approach (ICD-10-PCS; 2017-12-03)
PROC: 5A1D70Z Performance of Urinary Filtration, Intermittent, Less than 6 Hours Per Day (ICD-10-PCS; 2017-12-04)
PROC: BW211ZZ Computerized Tomography (CT Scan) of Abdomen and Pelvis using Low Osmolar Contrast (ICD-10-PCS; 2017-12-07)
PROC: 0W9F30Z Drainage of Abdominal Wall with Drainage Device, Percutaneous Approach (ICD-10-PCS; 2017-12-07)
PROC: 0W9J30Z Drainage of Pelvic Cavity with Drainage Device, Percutaneous Approach (ICD-10-PCS; 2017-12-07)
PROC: 5A1D70Z Performance of Urinary Filtration, Intermittent, Less than 6 Hours Per Day (ICD-10-PCS; 2017-12-07)
PROC: 5A1D70Z Performance of Urinary Filtration, Intermittent, Less than 6 Hours Per Day (ICD-10-PCS; 2017-12-09)
PROC: 5A1D70Z Performance of Urinary Filtration, Intermittent, Less than 6 Hours Per Day (ICD-10-PCS; 2017-12-11)
PROC: 06PYX3Z Removal of Infusion Device from Lower Vein, External Approach (ICD-10-PCS; 2017-12-11)
PROC: 02H633Z Insertion of Infusion Device into Right Atrium, Percutaneous Approach (ICD-10-PCS; 2017-12-11)
PROC: B244ZZZ Ultrasonography of Right Heart (ICD-10-PCS; 2017-12-11)
PROC: B2141ZZ Fluoroscopy of Right Heart using Low Osmolar Contrast (ICD-10-PCS; 2017-12-11)
PROC: 5A1D70Z Performance of Urinary Filtration, Intermittent, Less than 6 Hours Per Day (ICD-10-PCS; 2017-12-14)
PROC: 5A1D70Z Performance of Urinary Filtration, Intermittent, Less than 6 Hours Per Day (ICD-10-PCS; 2017-12-16)
PROC: 5A1D70Z Performance of Urinary Filtration, Intermittent, Less than 6 Hours Per Day (ICD-10-PCS; 2017-12-18)
DX: A41.9 Sepsis, unspecified organism (principal); R65.21 Severe sepsis with septic shock; R74.8 Abnormal levels of other serum enzymes; K92.0 Hematemesis; D69.6 Thrombocytopenia, unspecified; I50.9 Heart failure, unspecified; E87.0 Hyperosmolality and hypernatremia; M19.90 Unspecified osteoarthritis, unspecified site; K94.23 Gastrostomy malfunction; Y83.3 Surgical operation with formation of external stoma as the cause of abnormal reaction of the patient, or of later complication, without mention of misadventure at the time of the procedure; K44.9 Diaphragmatic hernia without obstruction or gangrene; G93.41 Metabolic encephalopathy; J98.09 Other diseases of bronchus, not elsewhere classified; J96.21 Acute and chronic respiratory failure with hypoxia; I63.9 Cerebral infarction, unspecified; D62 Acute posthemorrhagic anemia; N17.0 Acute kidney failure with tubular necrosis; K25.9 Gastric ulcer, unspecified as acute or chronic, without hemorrhage or perforation; K65.1 Peritoneal abscess; R13.12 Dysphagia, oropharyngeal phase; E87.2 Acidosis; D64.9 Anemia, unspecified; I11.0 Hypertensive heart disease with heart failure; J69.0 Pneumonitis due to inhalation of food and vomit; I25.10 Atherosclerotic heart disease of native coronary artery without angina pectoris; K42.9 Umbilical hernia without obstruction or gangrene; Z82.49 Family history of ischemic heart disease and other diseases of the circulatory system; Z91.048 Other nonmedicinal substance allergy status; Z79.82 Long term (current) use of aspirin; Z79.899 Other long term (current) drug therapy; I69.354 Hemiplegia and hemiparesis following cerebral infarction affecting left non-dominant side; Y92.89 Other specified places as the place of occurrence of the external cause; Z23 Encounter for immunization
CPT/HCPCS: 10160; 36415; 36430; 36556; 36600; 51702; 71045; 71275; 74018; 74176; 74177; 76770; 77001; 77012; 80048; 80053; 80061; 80074; 81001; 82140; 82270; 82550; 82553; 82570; 82803; 82962; 83690; 83735; 83880; 84100; 84132; 84484; 85007; 85014; 85018; 85025; 85027; 85610; 85730; 86140; 86850; 86870; 86900; 86901; 86920; 87040; 87070; 87075; 87076; 87086; 87116; 87186; 87205; 90732; 93005; 93010; 94002; 94003; 94640; 94760; 94770; C1752; C1769; C9113; G8978-GP; G8979-GP; G8987-GO; G8988-GO; G8989-GO; J0330; J0360; J0690; J0692; J0885; J1160; J1170; J1450; J1644; J1956; J2060; J2185; J2250; J2270; J2370; J2405; J2543; J2704; J2710; J2930; J3010; J3370; J3475; J3480; J7030; J7040; J7042; J7050; J7070; P9016; P9047; Q9967

== ENCOUNTER 2018-05-24 04:35 | Emergency (ER) | payer MEDICARE ==
--- NOTE | 2018-05-24 05:46 | Emergency Department Report ---
ED General Adult HPI - General Chief complaint: Skin/Abscess/Foreign Body Stated complaint: TRACH DISLODGED Time Seen by Provider: 05/24/18 05:18 Source: EMS Mode of arrival: Stretcher Limitations: Other - History of Present Illness Initial comments: Patient is a 68-year-old male trach tube dependent history of stroke who presents with dislodged trach. Patient is from [facility] and per EMS his tracheostomy tube dislodged approximately 1 hour prior to EMS arrival. They were unable to place the trach back in due to the tracheostomy stoma being closed. - Related Data Home Medications Medication Instructions Recorded Confirmed Last Taken Pantoprazole [Protonix TAB] 40 mg PO QDAY 09/15/16 11/13/17 09/15/16 Previous Rx's Medication Instructions Recorded Last Taken Type Dextrose 50% in Water [D50W (25GM) 50 ml IV PRN PRN syringe 01/09/18 Unknown Rx Syringe] HYDROmorphone [Dilaudid] 1 mg IV Q3H PRN syringe 01/09/18 Unknown Rx Lansoprazole Solutab [Prevacid 30 mg FEEDTUBE BID tab.rapdis 01/09/18 Unknown Rx Solutab] Lipase/Protease/Amylase [Pancreaze 1 each FEEDTUBE PRN PRN capsule 01/09/18 Unknown Rx 10,500 Unit] Magnesium Oxide [Mag-Ox] 400 mg PO BID tablet 01/09/18 Unknown Rx Metoprolol [Lopressor TAB] 25 mg PO BID tablet 01/09/18 Unknown Rx Ondansetron [Zofran INJ] 4 mg IV Q3H PRN vial 01/09/18 Unknown Rx Scopolamine [Transderm-Scop] 1 each TD Q3D patch 01/09/18 Unknown Rx Sodium Bicarbonate 325 mg FEEDTUBE PRN PRN tablet 01/09/18 Unknown Rx hydrALAZINE [Apresoline INJ] 5 mg IV Q6HR PRN vial 01/09/18 Unknown Rx Allergies Allergy/AdvReac Type Severity Reaction Status Date / Time adhesive tape AdvReac SKIN TEAR Verified 10/09/17 13:53 ED Review of Systems ROS: Stated complaint: TRACH DISLODGED Other details as noted in HPI Comment: Unobtainable due to pts medical conditions ED Past Medical Hx - Past Medical History Previous Medical History?: Yes Hx Hypertension: Yes Hx CVA: Yes (left-sided weakness) Hx Congestive Heart Failure: No Hx Diabetes: No Hx Deep Vein Thrombosis: No Hx Liver Disease: No Hx Renal Disease: Yes (DARYA complicated by hypernatremia) Hx Arthritis: Yes Hx Asthma: No Hx COPD: No Hx HIV: No Additional medical history: Trach. - Surgical History Past Surgical History?: Yes Hx Pacemaker: No Hx Internal Defibrillator: No Additional Surgical History: hernia, - Social History Smoking Status: Unknown if ever smoked - Medications Home Medications: Home Medications Medication Instructions Recorded Confirmed Last Taken Type Pantoprazole [Protonix TAB] 40 mg PO QDAY 09/15/16 11/13/17 09/15/16 History Dextrose 50% in Water [D50W (25GM) 50 ml IV PRN PRN syringe 01/09/18 Unknown Rx Syringe] HYDROmorphone [Dilaudid] 1 mg IV Q3H PRN syringe 01/09/18 Unknown Rx Lansoprazole Solutab [Prevacid 30 mg FEEDTUBE BID tab.rapdis 01/09/18 Unknown Rx Solutab] Lipase/Protease/Amylase [Pancreaze 1 each FEEDTUBE PRN PRN capsule 01/09/18 Unknown Rx 10,500 Unit] Magnesium Oxide [Mag-Ox] 400 mg PO BID tablet 01/09/18 Unknown Rx Metoprolol [Lopressor TAB] 25 mg PO BID tablet 01/09/18 Unknown Rx Ondansetron [Zofran INJ] 4 mg IV Q3H PRN vial 01/09/18 Unknown Rx Scopolamine [Transderm-Scop] 1 each TD Q3D patch 01/09/18 Unknown Rx Sodium Bicarbonate 325 mg FEEDTUBE PRN PRN tablet 01/09/18 Unknown Rx hydrALAZINE [Apresoline INJ] 5 mg IV Q6HR PRN vial 01/09/18 Unknown Rx ED Physical Exam - General Limitations: Other General appearance: alert - Head Head exam: Present: atraumatic, normocephalic - Eye Eye exam: Present: normal appearance - ENT ENT exam: Present: other (trach stoma with secretions ) - Neck Neck exam: Present: normal inspection - Respiratory Respiratory exam: Present: normal lung sounds bilaterally. Absent: respiratory distress - Cardiovascular Cardiovascular Exam: Present: regular rate, normal rhythm. Absent: systolic murmur, diastolic murmur, rubs, gallop - GI/Abdominal GI/Abdominal exam: Present: soft, normal bowel sounds - Rectal Rectal exam: Present: deferred - Extremities Exam Extremities exam: Present: normal inspection - Back Exam Back exam: Present: normal inspection - Neurological Exam Neurological exam: Present: alert, other (neuro exam is limited due to patient's medical condition) - Psychiatric Psychiatric exam: Present: other (gastric exam is limited due to patient's medical condition) - Skin Skin exam: Present: warm, dry, intact, normal color. Absent: rash ED Course Vital Signs 05/24/18 05/24/18 05/24/18 05:19 05:25 05:29 Temperature 98.2 F Pulse Rate 82 Respiratory 22 Rate Blood Pressure 113/62 [Left] O2 Sat by Pulse 96 98 Oximetry O2 Sat by Pulse 98 Oximetry [ Assessment] - Procedure Description Procedures done: Tracheostomy insertion patient was placed in the supine position and a 4 [place] was inserted in secretions were suctioned. Patient tolerated the procedure well ED Medical Decision Making - Medical Decision Making Chief medical diagnosis: Tracheal dislodgment Critical care attestation.: If time is entered above; I have spent that time in minutes in the direct care of this critically ill patient, excluding procedure time. ED Disposition Clinical Impression: Tracheostomy obstruction, Tracheostomy in place Disposition: DC-01 TO HOME OR SELFCARE Is pt being admited?: No Does the pt Need Aspirin: No Condition: Stable Referrals: FABRICIO CROSS MD [Staff Physician] - 3-5 Days
[2018-05-24 08:47] VITALS: BP 125/68
== END 2018-05-24 09:18 | disposition home or self-care (01) ==
LOC: ED 04:35
DX: J95.03 Malfunction of tracheostomy stoma (principal); I10 Essential (primary) hypertension; M19.90 Unspecified osteoarthritis, unspecified site; Z86.73 Personal history of transient ischemic attack (TIA), and cerebral infarction without residual deficits
CPT/HCPCS: 94760

== ENCOUNTER 2018-06-17 15:32 | Inpatient (IN) | payer MEDICARE, MEDICAID ==
--- NOTE | 2018-06-17 16:46 | Emergency Department Report ---
ED General Adult HPI - General Chief complaint: Dyspnea/Respdistress Stated complaint: DEHYDRATION/TEJ Time Seen by Provider: 06/17/18 16:07 Source: EMS Mode of arrival: Stretcher Limitations: Other - History of Present Illness Initial comments: Patient presents to the emergency department via long-term for dark coffee ground discharge from his tracheostomy. Patient is not able to communicate so history is given the third democrat. Symptoms started this morning. -: Sudden Severity scale (0 -10): 0 Consistency: constant Improves with: none Worsens with: none Associated Symptoms: denies other symptoms Treatments Prior to Arrival: none - Related Data Previous Rx's Medication Instructions Recorded Last Taken Type Dextrose 50% in Water [D50W (25GM) 50 ml IV PRN PRN syringe 01/09/18 Unknown Rx Syringe] HYDROmorphone [Dilaudid] 1 mg IV Q3H PRN syringe 01/09/18 Unknown Rx Lansoprazole Solutab [Prevacid 30 mg FEEDTUBE BID tab.rapdis 01/09/18 Unknown Rx Solutab] Lipase/Protease/Amylase [Pancreaze 1 each FEEDTUBE PRN PRN capsule 01/09/[address] 10,500 Unit] Magnesium Oxide [Mag-Ox] 400 mg PO BID tablet 01/09/18 Unknown Rx Metoprolol [Lopressor TAB] 25 mg PO BID tablet 01/09/18 Unknown Rx Ondansetron [Zofran INJ] 4 mg IV Q3H PRN vial 01/09/18 Unknown Rx Scopolamine [Transderm-Scop] 1 each TD Q3D patch 01/09/18 Unknown Rx Sodium Bicarbonate 325 mg FEEDTUBE PRN PRN tablet 01/09/18 Unknown Rx hydrALAZINE [Apresoline INJ] 5 mg IV Q6HR PRN vial 01/09/18 Unknown Rx Allergies Allergy/AdvReac Type Severity Reaction Status Date / Time adhesive tape AdvReac SKIN TEAR Verified 10/09/17 13:53 ED Review of Systems ROS: Stated complaint: DEHYDRATION/TEJ Other details as noted in HPI Comment: Unobtainable due to pts medical conditions ED Past Medical Hx - Past Medical History Hx Hypertension: Yes Hx CVA: Yes (left-sided weakness) Hx Heart Attack/AMI: No Hx Congestive Heart Failure: No Hx Diabetes: No Hx Deep Vein Thrombosis: No Hx Pulmonary Embolism: No Hx GERD: No Hx Liver Disease: No Hx Renal Disease: Yes (DARYA complicated by hypernatremia) Hx Sickle Cell Disease: No Hx Arthritis: Yes Hx Headaches / Migraines: No Hx Seizures: No Hx Kidney Stones: No Hx Psychiatric Treatment: No Hx Asthma: No Hx COPD: No Hx Tuberculosis: No Hx Dementia: No Hx HIV: No Additional medical history: Trach. - Surgical History Hx Coronary Stent: No Hx Open Heart Surgery: No Hx Pacemaker: No Hx Internal Defibrillator: No Hx Cholecystectomy: No Hx Appendectomy: No Hx Breast Surgery: No Additional Surgical History: hernia, - Social History Smoking Status: Unknown if ever smoked - Medications Home Medications: Home Medications Medication Instructions Recorded Confirmed Last Taken Type Dextrose 50% in Water [D50W (25GM) 50 ml IV PRN PRN syringe 01/09/18 06/17/18 Unknown Rx Syringe] HYDROmorphone [Dilaudid] 1 mg IV Q3H PRN syringe 01/09/18 06/17/18 Unknown Rx Lansoprazole Solutab [Prevacid 30 mg FEEDTUBE BID tab.rapdis 01/09/18 06/17/18 Unknown Rx Solutab] Lipase/Protease/Amylase [Pancreaze 1 each FEEDTUBE PRN PRN capsule 01/09/18 06/17/18 Unknown Rx 10,500 Unit] Magnesium Oxide [Mag-Ox] 400 mg PO BID tablet 01/09/18 06/17/18 Unknown Rx Metoprolol [Lopressor TAB] 25 mg PO BID tablet 01/09/18 06/17/18 Unknown Rx Ondansetron [Zofran INJ] 4 mg IV Q3H PRN vial 01/09/18 06/17/18 Unknown Rx Scopolamine [Transderm-Scop] 1 each TD Q3D patch 01/09/18 06/17/18 Unknown Rx Sodium Bicarbonate 325 mg FEEDTUBE PRN PRN tablet 01/09/18 06/17/18 Unknown Rx hydrALAZINE [Apresoline INJ] 5 mg IV Q6HR PRN vial 01/09/18 06/17/18 Unknown Rx ED Physical Exam - General Limitations: Other General appearance: in no apparent distress - Head Head exam: Present: atraumatic, normocephalic - Eye Eye exam: Present: normal appearance - ENT ENT exam: Present: mucous membranes dry - Neck Neck exam: Present: normal inspection - Respiratory Respiratory exam: Present: normal lung sounds bilaterally, rales. Absent: respiratory distress, wheezes - Cardiovascular Cardiovascular Exam: Present: regular rate, normal rhythm. Absent: systolic murmur, diastolic murmur, rubs, gallop - GI/Abdominal GI/Abdominal exam: Present: soft, normal bowel sounds. Absent: distended, tenderness - Rectal Rectal exam: Present: deferred - Extremities Exam Extremities exam: Present: normal inspection - Back Exam Back exam: Present: normal inspection - Neurological Exam Neurological exam: Present: alert, other (not able to completely assess due to the patient's condition). Absent: motor sensory deficit - Psychiatric Psychiatric exam: Present: other (not able to completely assess due to the patient's condition) - Skin Skin exam: Present: warm, dry, intact, normal color. Absent: rash ED Course Vital Signs 06/17/18 06/17/18 16:19 16:29 Pulse Rate 93 H 93 H Respiratory 22 22 Rate Blood Pressure 124/79 Blood Pressure 124/79 [Right] O2 Sat by Pulse 98 98 Oximetry ED Medical Decision Making - Lab Data Result diagrams: 06/17/18 16:48 06/17/18 16:48 Lab Results 06/17/18 06/17/18 06/17/18 Range/Units 16:48 16:48 16:48 WBC 16.5 H (4.5-11.0) K/mm3 RBC 4.05 (3.65-5.03) M/mm3 Hgb 8.9 L (11.8-15.2) gm/dl Hct 29.1 L (35.5-45.6) % MCV 72 L (84-94) fl MCH 22 L (28-32) pg MCHC 31 L (32-34) % RDW 18.8 H (13.2-15.2) % Plt Count 231 (140-440) K/mm3 Lymph % (Auto) 7.0 L (13.4-35.0) % [place] % (Auto) 6.5 (0.0-7.3) % Eos % (Auto) 1.2 (0.0-4.3) % Baso % (Auto) 1.2 (0.0-1.8) % Lymph # 1.2 (1.2-5.4) K/mm3 [place] # 1.1 H (0.0-0.8) K/mm3 Eos # 0.2 (0.0-0.4) K/mm3 Baso # 0.2 H (0.0-0.1) K/mm3 Seg Neutrophils % 84.1 H (40.0-70.0) % Seg Neutrophils # 13.9 H (1.8-7.7) K/mm3 Sodium 141 (137-145) mmol/L Potassium 5.2 H (3.6-5.0) mmol/L Chloride 60.0 L (98-107) mmol/L Carbon Dioxide 27 (22-30) mmol/L Anion Gap 59 mmol/L BUN 21 H (9-20) mg/dL Creatinine 0.4 L (0.8-1.5) mg/dL Estimated GFR > 60 ml/min BUN/Creatinine Ratio 53 % Glucose 102 H (75-100) mg/dL Lactic Acid 1.40 (0.7-2.0) mmol/L Calcium 8.5 (8.4-10.2) mg/dL Total Bilirubin 0.20 (0.1-1.2) mg/dL AST 52 H (5-40) units/L ALT 24 (7-56) units/L Alkaline Phosphatase 118 (35-129) units/L NT-Pro-B Natriuret Pep (0-900) pg/mL Total Protein 6.6 (6.3-8.2) g/dL Albumin 2.4 L (3.9-5) g/dL Albumin/Globulin Ratio 0.7 % 06/17/18 06/17/18 Range/Units 17:47 19:09 WBC (4.5-11.0) K/mm3 RBC (3.65-5.03) M/mm3 Hgb (11.8-15.2) gm/dl Hct (35.5-45.6) % MCV (84-94) fl MCH (28-32) pg MCHC (32-34) % RDW (13.2-15.2) % Plt Count (140-440) K/mm3 Lymph % (Auto) (13.4-35.0) % [place] % (Auto) (0.0-7.3) % Eos % (Auto) (0.0-4.3) % Baso % (Auto) (0.0-1.8) % Lymph # (1.2-5.4) K/mm3 [place] # (0.0-0.8) K/mm3 Eos # (0.0-0.4) K/mm3 Baso # (0.0-0.1) K/mm3 Seg Neutrophils % (40.0-70.0) % Seg Neutrophils # (1.8-7.7) K/mm3 Sodium (137-145) mmol/L Potassium (3.6-5.0) mmol/L Chloride (98-107) mmol/L Carbon Dioxide (22-30) mmol/L Anion Gap mmol/L BUN (9-20) mg/dL Creatinine (0.8-1.5) mg/dL Estimated GFR ml/min BUN/Creatinine Ratio % Glucose (75-100) mg/dL Lactic Acid 1.20 (0.7-2.0) mmol/L Calcium (8.4-10.2) mg/dL Total Bilirubin (0.1-1.2) mg/dL AST (5-40) units/L ALT (7-56) units/L Alkaline Phosphatase (35-129) units/L NT-Pro-B Natriuret Pep 214.6 (0-900) pg/mL Total Protein (6.3-8.2) g/dL Albumin (3.9-5) g/dL Albumin/Globulin Ratio % - Radiology Data Radiology results: report reviewed - Medical Decision Making Results reviewed Patient will be admitted Critical Care Time: Yes Critical care time in (mins) excluding proc time.: 45 Critical care attestation.: If time is entered above; I have spent that time in minutes in the direct care of this critically ill patient, excluding procedure time. ED Disposition Clinical Impression: Sepsis, Pneumonia Disposition: OP ADMIT IP TO THIS HOSP Is pt being admited?: Yes Does the pt Need Aspirin: No Condition: Fair Instructions: Bacterial Pneumonia (ED)
[2018-06-17 17:12] LABS: Basophils # (Auto) 0.2 K/mm3 (0.0-0.1); Basophils % (Auto) 1.2 % (0.0-1.8); Eosinophils # (Auto) 0.2 K/mm3 (0.0-0.4); Eosinophils % (Auto) 1.2 % (0.0-4.3); Hematocrit 29.1 % (35.5-45.6); Hemoglobin 8.9 gm/dl (11.8-15.2); Lymphocytes # (Auto) 1.2 K/mm3 (1.2-5.4); Mean Corpuscular HGB Conc 31 % (32-34); Mean Corpuscular Volume 72 fl (84-94); Monocytes # (Auto) 1.1 K/mm3 (0.0-0.8); Monocytes % (Auto) 6.5 % (0.0-7.3); Platelet Count 231 K/mm3 (140-440); Red Blood Count 4.05 M/mm3 (3.65-5.03); Red Cell Distribution Width 18.8 % (13.2-15.2)
[2018-06-17 17:44] LABS: Albumin 2.4 g/dL (3.9-5)
[2018-06-17] MEDS ORDERED: NACL 0.9% 1000 ML 1,000 ML IV ONE ×2 (17:44→19:36)
[2018-06-17 17:48] LABS: BUN/Creatinine Ratio 53; Blood Urea Nitrogen 21 mg/dL (9-20); Calcium 8.5 mg/dL (8.4-10.2); Hemolysis Index 178
[2018-06-17 17:49] LABS: Alanine Aminotransferase 24 units/L (7-56)
[2018-06-17] MEDS ORDERED: MAXIPIME/NS 2 GM/100 ML 2 GM/100 ML BAG IV SCH (18:00)
--- NOTE | 2018-06-17 18:54 | XRay Report ---
PROCEDURE: XR CHEST 1V AP TECHNIQUE: Frontal portable view of the chest HISTORY: cough COMPARISONS: Chest x-ray dated December 20, 2017 FINDINGS: A tracheostomy tube is demonstrated with the tip at the level of the clavicles. There is prominence of the interstitial markings in both lungs with the appearance of patchy areas of pulmonary consolidation in both lungs, right greater than left, concerning for pulmonary infiltrates . There is no evidence of pneumothorax or pleural fluid collection. The cardiac silhouette is enlarged. The thoracic aorta is tortuous. The bony structures are unremarkable. Visualization of detail of the thoracic spine is limited. IMPRESSION: 1. Bilateral interstitial and airspace process. Infectious and noninfectious etiologies, to include C HF, need to be considered. If further imaging is required, CT chest may be helpful. 2. Enlarged cardiac silhouette. This document is electronically signed by Leslie Modi MD., June 17 2018 06:52:20 PM ET
[2018-06-17] MEDS ORDERED: NACL 0.9% 1000 ML 1,000 ML ONE (20:08)
[2018-06-17 20:54] LABS: Bacteria,Urine 2+ /HPF (Negative); Bilirubin,Urine NEG (Negative); Blood,Urine NEG (Negative); Color,Urine Yellow (Yellow); Granular Casts,Urine 3 /LPF; Mucus,Urine FEW /HPF; Protein,Urine <15 mg/dL mg/dL (Negative); Urobilinogen,Urine < 2.0 mg/dL (<2.0)
[2018-06-17] MEDS ORDERED: SODIUM BICARBONATE FEEDTUBE PRN ×2 (21:47→21:52)
[2018-06-17] MEDS ORDERED: ZOFRAN IV PRN ×2 (21:47→21:48)
[2018-06-17] MEDS ORDERED: PANCREAZE DR 10,500 UNIT FEEDTUBE PRN ×2 (21:47→21:52)
--- NOTE | 2018-06-17 21:47 | History and Physical Report ---
History of Present Illness Date of examination: 06/17/18 Date of admission: 06/17/18 19:36 Medications and Allergies Allergies Allergy/AdvReac Type Severity Reaction Status Date / Time adhesive tape AdvReac SKIN TEAR Verified 10/09/17 13:53 Home Medications Medication Instructions Recorded Confirmed Last Taken Type Dextrose 50% in Water [D50W (25GM) 50 ml IV PRN PRN syringe 01/09/18 06/17/18 Unknown Rx Syringe] HYDROmorphone [Dilaudid] 1 mg IV Q3H PRN syringe 01/09/18 06/17/18 Unknown Rx Lansoprazole Solutab [Prevacid 30 mg FEEDTUBE BID tab.rapdis 01/09/18 06/17/18 Unknown Rx Solutab] Lipase/Protease/Amylase [Pancreaze 1 each FEEDTUBE PRN PRN capsule 01/09/18 06/17/18 Unknown Rx 10,500 Unit] Magnesium Oxide [Mag-Ox] 400 mg PO BID tablet 01/09/18 06/17/18 Unknown Rx Metoprolol [Lopressor TAB] 25 mg PO BID tablet 01/09/18 06/17/18 Unknown Rx Ondansetron [Zofran INJ] 4 mg IV Q3H PRN vial 01/09/18 06/17/18 Unknown Rx Scopolamine [Transderm-Scop] 1 each TD Q3D patch 01/09/18 06/17/18 Unknown Rx Sodium Bicarbonate 325 mg FEEDTUBE PRN PRN tablet 01/09/18 06/17/18 Unknown Rx hydrALAZINE [Apresoline INJ] 5 mg IV Q6HR PRN vial 01/09/18 06/17/18 Unknown Rx Active Meds: Active Medications Cefepime HCl (Maxipime/Ns 2 Gm/100 Ml) 2 gm in 100 mls @ 200 mls/hr IV Q8H [facility]; Protocol Last Admin: 06/17/18 19:39 Dose: 200 mls/hr Documented by: Exam - Constitutional Vitals: Temp Pulse Resp BP Pulse Ox 95 H 21 132/82 100 06/17/18 19:45 06/17/18 19:45 06/17/18 19:45 06/17/18 19:30 Results - Labs CBC & Chem 7: 06/17/18 16:48 06/17/18 16:48 Labs: Laboratory Last Values WBC 16.5 K/mm3 (4.5-11.0) H 06/17/18 16:48 RBC 4.05 M/mm3 (3.65-5.03) 06/17/18 16:48 Hgb 8.9 gm/dl (11.8-15.2) L 06/17/18 16:48 Hct 29.1 % (35.5-45.6) L 06/17/18 16:48 MCV 72 fl (84-94) L 06/17/18 16:48 MCH 22 pg (28-32) L 06/17/18 16:48 MCHC 31 % (32-34) L 06/17/18 16:48 RDW 18.8 % (13.2-15.2) H 06/17/18 16:48 Plt Count 231 K/mm3 (140-440) 06/17/18 16:48 Lymph % (Auto) 7.0 % (13.4-35.0) L 06/17/18 16:48 [place] % (Auto) 6.5 % (0.0-7.3) 06/17/18 16:48 Eos % (Auto) 1.2 % (0.0-4.3) 06/17/18 16:48 Baso % (Auto) 1.2 % (0.0-1.8) 06/17/18 16:48 Lymph # 1.2 K/mm3 (1.2-5.4) 06/17/18 16:48 [place] # 1.1 K/mm3 (0.0-0.8) H 06/17/18 16:48 Eos # 0.2 K/mm3 (0.0-0.4) 06/17/18 16:48 Baso # 0.2 K/mm3 (0.0-0.1) H 06/17/18 16:48 Seg Neutrophils % 84.1 % (40.0-70.0) H 06/17/18 16:48 Seg Neutrophils # 13.9 K/mm3 (1.8-7.7) H 06/17/18 16:48 Sodium 141 mmol/L (137-145) 06/17/18 16:48 Potassium 5.2 mmol/L (3.6-5.0) H 06/17/18 16:48 Chloride 60.0 mmol/L (98-107) L 06/17/18 16:48 Carbon Dioxide 27 mmol/L (22-30) 06/17/18 16:48 Anion Gap 59 mmol/L 06/17/18 16:48 BUN 21 mg/dL (9-20) H 06/17/18 16:48 Creatinine 0.4 mg/dL (0.8-1.5) L 06/17/18 16:48 Estimated GFR > 60 ml/min 06/17/18 16:48 BUN/Creatinine Ratio 53 % 06/17/18 16:48 Glucose 102 mg/dL (75-100) H 06/17/18 16:48 Lactic Acid 1.20 mmol/L (0.7-2.0) 06/17/18 19:09 Calcium 8.5 mg/dL (8.4-10.2) 06/17/18 16:48 Total Bilirubin 0.20 mg/dL (0.1-1.2) 06/17/18 16:48 AST 52 units/L (5-40) H 06/17/18 16:48 ALT 24 units/L (7-56) 06/17/18 16:48 Alkaline Phosphatase 118 units/L (35-129) 06/17/18 16:48 NT-Pro-B Natriuret Pep 214.6 pg/mL (0-900) 06/17/18 17:47 Total Protein 6.6 g/dL (6.3-8.2) 06/17/18 16:48 Albumin 2.4 g/dL (3.9-5) L 06/17/18 16:48 Albumin/Globulin Ratio 0.7 % 06/17/18 16:48 Urine Color Yellow (Yellow) 06/17/18 20:07 Urine Turbidity Cloudy (Clear) 06/17/18 20:07 Urine pH 5.0 (5.0-7.0) 06/17/18 20:07 Ur Specific [place] 1.026 (1.003-1.030) 06/17/18 20:07 Urine Protein <15 mg/dl mg/dL (Negative) 06/17/18 20:07 Urine Glucose (UA) Neg mg/dL (Negative) 06/17/18 20:07 Urine Ketones Tr mg/dL (Negative) 06/17/18 20:07 Urine Blood Neg (Negative) 06/17/18 20:07 Urine Nitrite Neg (Negative) 06/17/18 20:07 Urine Bilirubin Neg (Negative) 06/17/18 20:07 Urine Urobilinogen < 2.0 mg/dL (<2.0) 06/17/18 20:07 Ur Leukocyte Esterase Lg (Negative) 06/17/18 20:07 Urine WBC (Auto) 57.0 /HPF (0.0-6.0) H 06/17/18 20:07 Urine RBC (Auto) 14.0 /HPF (0.0-6.0) 06/17/18 20:07 U Epithel Cells (Auto) < 1.0 /HPF (0-13.0) 06/17/18 20:07 Urine Bacteria (Auto) 2+ /HPF (Negative) 06/17/18 20:07 Urine WBC Clumps 3+ /HPF 06/17/18 20:07 Granular Casts 3 /LPF 06/17/18 20:07 Urine Mucus Few /HPF 06/17/18 20:07 Urine Yeast (Budding) 3+ /HPF 06/17/18 20:07
[2018-06-17] MEDS ORDERED: SODIUM CHLORIDE FLUSH SYRINGE 10 ML IV PRN (21:48)
[2018-06-17] MEDS ORDERED: TYLENOL PO PRN (21:48)
[2018-06-17] MEDS ORDERED: PROVENTIL IH PRN (21:49)
[2018-06-17] MEDS ORDERED: SIMPLE SYRUP FEEDTUBE PRN ×2 (21:52)
[2018-06-17] MEDS: ZITHROMAX 500 MG in NACL 0.9% 250ML 250 ML IV SCH (22:30)
[2018-06-17] MEDS: DILAUDID IV PRN (23:00)
[2018-06-17] MEDS ORDERED: DILAUDID ONE (23:05)
[2018-06-17] MEDS ORDERED: SOLU-Medrol ONE (23:07)
[2018-06-17] MEDS ORDERED: LOVENOX SUB-Q ONE (23:08)
[2018-06-17] MEDS ORDERED: LOPRESSOR ONE (23:08)
[2018-06-17] MEDS ORDERED: PEPCID IV ONE (23:08)
[2018-06-17] MEDS: PEPCID IV SCH (23:19)
[2018-06-17] MEDS: SOLU-Medrol IV SCH (23:19)
[2018-06-17] MEDS: LOPRESSOR PO SCH (23:19)
[2018-06-17] MEDS: LOVENOX SUB-Q SCH (23:20)
[2018-06-17] MEDS: MAG-OX PO SCH (23:20)
[2018-06-17] MEDS: SODIUM CHLORIDE FLUSH SYRINGE 10 ML IV SCH (23:21)
[2018-06-17] MEDS: TRANSDERM-SCOP TD SCH (23:21)
[2018-06-18] MEDS: ROCEPHIN/NS 2 GM/100 ML 2 GM/100 ML BAG IV SCH (00:45)
[2018-06-18] MEDS: PREVACID SOLUTAB FEEDTUBE SCH ×3 (00:45→23:45)
[2018-06-18] MEDS ORDERED: DILAUDID ONE ×3 (02:20→11:45)
[2018-06-18] MEDS: DILAUDID IV PRN ×3 (02:47→11:48)
[2018-06-18 05:39] LABS: Hematocrit 30.2 % (35.5-45.6); Hemoglobin 9.1 gm/dl (11.8-15.2); Mean Corpuscular HGB Conc 30 % (32-34); Mean Corpuscular Volume 74 fl (84-94); Platelet Count 202 K/mm3 (140-440); Red Blood Count 4.08 M/mm3 (3.65-5.03); Red Cell Distribution Width 18.9 % (13.2-15.2)
[2018-06-18] MEDS ORDERED: SOLU-Medrol ONE ×3 (05:43→23:19)
[2018-06-18] MEDS: SOLU-Medrol IV SCH ×3 (05:44→23:26)
[2018-06-18 06:10] LABS: Alanine Aminotransferase 16 units/L (7-56); Albumin 2.8 g/dL (3.9-5); BUN/Creatinine Ratio 36; Blood Urea Nitrogen 18 mg/dL (9-20); Calcium 8.6 mg/dL (8.4-10.2); Hemolysis Index 5
--- NOTE | 2018-06-18 06:52 | Event Note ---
Date: 06/17/18 See Dictated H/p in reports
[2018-06-18] MEDS ORDERED: DUONEB *Not for PRN Use IH ONE ×4 (08:18→20:57)
[2018-06-18] MEDS: DUONEB *Not for PRN Use IH SCH ×3 (08:21→15:29)
[2018-06-18 08:54] LABS: Anisocytosis 1+; Basophils % (Manual) 0 % (0.0-1.8); Eosinophils % (Manual) 0 % (0.0-4.3); Monocytes % (Manual) 0 % (0.0-7.3); Total Cells Counted 100
[2018-06-18 08:55] LABS: Macrocytosis Few; Platelet Estimate Consistent w Auto; Poikilocytosis Few
--- NOTE | 2018-06-18 09:20 | History and Physical Report ---
CHIEF COMPLAINT: Coffee-ground discharge from tracheostomy site. HISTORY OF PRESENT ILLNESS: A 68-year-old male with tracheostomy and chronic respiratory failure, was sent for coffee-ground discharge from the tracheostomy site. Also, slight respiratory distress present. Cough present. No fever. PAST MEDICAL HISTORY: Significant for cerebrovascular accident with left-sided weakness and hypertension. PAST SURGICAL HISTORY: He has a trach. The patient has a PEG tube, gastrostomy tube. SOCIAL HISTORY: Does not smoke. FAMILY HISTORY: Hypertension. CURRENT MEDICATIONS: On the chart including metoprolol 25 mg twice a day, hydralazine p.r.n., Prevacid Solutab 30 mg twice a day. REVIEW OF SYSTEMS: Significant for coffee-ground versus greenish discharge from the trach site. PHYSICAL EXAMINATION: GENERAL: Elderly male, alert, but not oriented. VITAL SIGNS: Blood pressure is 124/79, temperature is 98, pulse is 93, respiratory rate is 22, and sats are 98%. HEENT: Unremarkable. Trach site drainage present, coffee-ground to yellow. LUNGS: Scattered rhonchi bilaterally. CARDIOVASCULAR: S1, S2 heard. No gallop, no murmur, no rub. Apical impulse in left fifth intercostal space and midclavicular line. ABDOMEN: Soft and benign. No hepatosplenomegaly. No guarding, no rigidity. PEG tube in place. SKIN: Normal. CENTRAL NERVOUS SYSTEM: Left hemiplegia present. Contractures of the foot present. IMAGING DATA: Chest x-ray shows bilateral airspace disease. LABORATORY DATA: Show white count of 16,500, H and H of 8.9 and 29.1, and platelet count of 231,000. Sodium of 141, potassium of 5.2, chloride of ____, BUN and creatinine of 21 and 0.4, glucose of 102. Urine shows wbc's of 57. ASSESSMENT AND PLAN: 1. Bilateral pneumonia. The patient initiated on Levaquin and Zithromax 2. Respiratory failure. The patient is started on DuoNebs and IV Solu-Medrol of 60 and IV antibiotics. Albuterol p.r.n. Pulmonary consult requested. 3. Old cerebrovascular accident, supportive care. PEG tube status. The dietitian consult requested for tube feeding. 4. Gastroesophageal reflux disease. Continue Prevacid. 5. Hypertension. Continue metoprolol. 6. Deep venous thrombosis prophylaxis, Lovenox 30 mg subcutaneous daily. JOB# [id number] VSM/NTS MTDD
[2018-06-18] MEDS: SODIUM CHLORIDE FLUSH SYRINGE 10 ML IV SCH ×2 (09:39→23:27)
[2018-06-18] MEDS ORDERED: LOPRESSOR ONE ×2 (10:00→23:13)
[2018-06-18] MEDS ORDERED: PEPCID IV ONE ×2 (10:01→23:19)
[2018-06-18] MEDS: LOPRESSOR PO SCH ×2 (10:04→23:30)
[2018-06-18] MEDS: PEPCID IV SCH ×2 (10:04→23:26)
--- NOTE | 2018-06-18 10:29 | Consultation ---
History of Present Illness Consult date: 06/18/18 Requesting physician: GLORIA HARDY Medications and Allergies Allergies Allergy/AdvReac Type Severity Reaction Status Date / Time adhesive tape AdvReac SKIN TEAR Verified 10/09/17 13:53 Home Medications Medication Instructions Recorded Confirmed Last Taken Type Dextrose 50% in Water [D50W (25GM) 50 ml IV PRN PRN syringe 01/09/18 06/17/18 Unknown Rx Syringe] HYDROmorphone [Dilaudid] 1 mg IV Q3H PRN syringe 01/09/18 06/17/18 Unknown Rx Lansoprazole Solutab [Prevacid 30 mg FEEDTUBE BID tab.rapdis 01/09/18 06/17/18 Unknown Rx Solutab] Lipase/Protease/Amylase [Pancreaze 1 each FEEDTUBE PRN PRN capsule 01/09/18 06/17/18 Unknown Rx 10,500 Unit] Magnesium Oxide [Mag-Ox] 400 mg PO BID tablet 01/09/18 06/17/18 Unknown Rx Metoprolol [Lopressor TAB] 25 mg PO BID tablet 01/09/18 06/17/18 Unknown Rx Ondansetron [Zofran INJ] 4 mg IV Q3H PRN vial 01/09/18 06/17/18 Unknown Rx Scopolamine [Transderm-Scop] 1 each TD Q3D patch 01/09/18 06/17/18 Unknown Rx Sodium Bicarbonate 325 mg FEEDTUBE PRN PRN tablet 01/09/18 06/17/18 Unknown Rx hydrALAZINE [Apresoline INJ] 5 mg IV Q6HR PRN vial 01/09/18 06/17/18 Unknown Rx Active Meds: Active Medications Acetaminophen (Tylenol) 650 mg PO Q4H PRN PRN Reason: Pain MILD(1-3)/Fever >100.5/CABELLO Albuterol (Proventil) 2.5 mg IH Q4HRT PRN PRN Reason: Shortness Of Breath Albuterol/Ipratropium (Duoneb *Not For Prn Use*) 1 ampul IH QIDRT OSIRIS Last Admin: 06/18/18 08:21 Dose: 1 ampul Documented by: Lipase/Protease/Amylase (Mayank Huitron 10,500 Unit) 1 each FEEDTUBE PRN PRN PRN Reason: For Clogged Feeding Tube Enoxaparin Sodium (Lovenox) 40 mg SUB-Q QDAY@2200 [facility] Last Admin: 06/17/18 23:20 Dose: 40 mg Documented by: Famotidine (Pepcid) 20 mg IV BID [facility] Last Admin: 06/18/18 10:04 Dose: 20 mg Documented by: Hydromorphone HCl (Dilaudid) 0.5 mg IV Q3H PRN PRN Reason: Pain , Severe (7-10) Last Admin: 06/18/18 05:44 Dose: 0.5 mg Documented by: Sodium Chloride (Nacl 0.9% 1000 Ml) 1,000 mls @ 100 mls/hr IV DIRECT [facility] Azithromycin 500 mg/ Sodium (Chloride) 250 mls @ 250 mls/hr IV Q24H [facility] Last Admin: 06/17/18 22:30 Dose: 250 mls/hr Documented by: Ceftriaxone Sodium (Rocephin/Ns 2 Gm/100 Ml) 2 gm in 100 mls @ 200 mls/hr IV Q24H [facility]; Protocol Last Admin: 06/18/18 00:45 Dose: 200 mls/hr Documented by: Lansoprazole (Prevacid Solutab) 30 mg FEEDTUBE BID [facility] Last Admin: 06/18/18 00:45 Dose: 30 mg Documented by: Magnesium Oxide (Mag-Ox) 400 mg PO BID [facility] Last Admin: 06/17/18 23:20 Dose: 400 mg Documented by: Methylprednisolone Sodium Succinate (Solu-Medrol) 60 mg IV Q8HR [facility] Last Admin: 06/18/18 05:44 Dose: 60 mg Documented by: Metoprolol Tartrate (Lopressor) 25 mg PO BID [facility] Last Admin: 06/18/18 10:04 Dose: 25 mg Documented by: Ondansetron HCl (Zofran) 4 mg IV Q3H PRN PRN Reason: Nausea And Vomiting Scopolamine (Transderm-Scop) 1 each TD Q3D [facility] Last Admin: 06/17/18 23:21 Dose: 1 each Documented by: Sodium Bicarbonate (Sodium Bicarbonate) 325 mg FEEDTUBE PRN PRN PRN Reason: For Clogged Feeding Tube Sodium Chloride (Sodium Chloride Flush Syringe 10 Ml) 10 ml IV BID [facility] Last Admin: 06/18/18 09:39 Dose: 10 ml Documented by: Sodium Chloride (Sodium Chloride Flush Syringe 10 Ml) 10 ml IV PRN PRN PRN Reason: LINE FLUSH Physical Examination Vital signs: Vital Signs Pulse Resp BP Pulse Ox 93 H 22 124/79 98 06/17/18 16:19 06/17/18 16:19 06/17/18 16:19 06/17/18 16:19 Results - Laboratory Findings CBC and BMP: 06/18/18 05:25 06/18/18 05:25 Abnormal lab findings: Abnormal Labs 06/17/18 06/17/18 06/17/18 16:48 16:48 20:07 WBC 16.5 H Hgb 8.9 L Hct 29.1 L MCV 72 L MCH 22 L MCHC 31 L RDW 18.8 H Lymph % (Auto) 7.0 L [place] # 1.1 H Baso # 0.2 H Seg Neutrophils % 84.1 H Seg Neuts % (Manual) Lymphocytes % (Manual) Seg Neutrophils # 13.9 H Seg Neutrophils # Man Lymphocytes # (Manual) Potassium 5.2 H Chloride 60.0 L BUN 21 H Creatinine 0.4 L Glucose 102 H AST 52 H Albumin 2.4 L Urine WBC (Auto) 57.0 H 06/18/18 06/18/18 05:25 05:25 WBC Hgb 9.1 L Hct 30.2 L MCV 74 L MCH 22 L MCHC 30 L RDW 18.9 H Lymph % (Auto) [place] # Baso # Seg Neutrophils % Seg Neuts % (Manual) 95.0 H Lymphocytes % (Manual) 5.0 L Seg Neutrophils # Seg Neutrophils # Man 10.0 H Lymphocytes # (Manual) 0.5 L Potassium Chloride BUN Creatinine 0.5 L Glucose 120 H AST Albumin 2.8 L Urine WBC (Auto)
--- NOTE | 2018-06-18 11:00 | Event Note ---
Date: 06/18/18 Patient seen and examined. vitals, labs,medications, chart reviewed. On review of previous medical records, patient has been seen by Dr. Stephens in the past. Discussed with Dr. Stephens, transferred care.
[2018-06-18] MEDS ORDERED: SODIUM BICARBONATE FEEDTUBE PRN (11:21)
[2018-06-18] MEDS ORDERED: PANCREAZE DR 10,500 UNIT FEEDTUBE PRN (11:21)
[2018-06-18] MEDS ORDERED: SIMPLE SYRUP FEEDTUBE PRN ×2 (11:21)
[2018-06-18] MEDS: MAG-OX PO SCH ×2 (12:28→23:45)
--- NOTE | 2018-06-18 18:25 | Progress Note ---
Assessment and Plan Assessment and plan: --Bilateral pneumonia; Empiric antibiotics, follow cultures, supportive care Pulmonary consultation --Leukocytosis; secondary to sepsis due to bilateral pneumonia Trending down --Coffee-ground discharge from tracheostomy tube; at the time of admission Now resolved, continue supportive care --History of dysphagia; status post PEG PEG feeds, PEG tube care --History of CVA with residual weakness; Physical therapy and occupational therapy as needed Continue aspirin and statin --Hypertension; continue current antihypertensives and when necessary medications --Severe malnutrition /Hypoalbuminemia; Nutrition consult, dietary supplements and supportive care --DVT prophylaxis; Lovenox --Full CODE STATUS Closely monitor the patient and adjust the management as needed Plan of care is reviewed with the patient's nurse History Interval history: Patient seen and examined medical records reviewed Admitted with bilateral pneumonia On IV antibiotics Patient is sleeping; easily awakened Vital signs noted Hospitalist Physical - Constitutional Vitals: Temp Pulse Resp BP Pulse Ox 68 16 157/87 100 06/18/18 17:58 06/18/18 17:58 06/18/18 17:58 06/18/18 17:58 General appearance: Present: no acute distress, cachectic, disheveled, other (status post tracheostomy, on T piece) - EENT Eyes: Present: PERRL, EOM intact - Neck Neck: Present: other (trach in place) - Respiratory Respiratory effort: normal Respiratory: bilateral: diminished, rhonchi, negative: rales, wheezing - Cardiovascular Rhythm: regular Heart Sounds: Present: S1 & S2 - Extremities Extremities: no ischemia, No edema - Abdominal General gastrointestinal: soft, non-tender, non-distended, normal bowel sounds, other (plan In place. In placeePEG tube in plac) - Integumentary Integumentary: Present: clear, warm - Psychiatric Psychiatric: other - Neurologic Neurologic: other (residual weakness) Results - Labs CBC & Chem 7: 06/18/18 05:25 06/18/18 05:25 Labs: Laboratory Last Values WBC 10.5 K/mm3 (4.5-11.0) 06/18/18 05:25 RBC 4.08 M/mm3 (3.65-5.03) 06/18/18 05:25 Hgb 9.1 gm/dl (11.8-15.2) L 06/18/18 05:25 Hct 30.2 % (35.5-45.6) L 06/18/18 05:25 MCV 74 fl (84-94) L 06/18/18 05:25 MCH 22 pg (28-32) L 06/18/18 05:25 MCHC 30 % (32-34) L 06/18/18 05:25 RDW 18.9 % (13.2-15.2) H 06/18/18 05:25 Plt Count 202 K/mm3 (140-440) 06/18/18 05:25 Lymph % (Auto) 7.0 % (13.4-35.0) L 06/17/18 16:48 [place] % (Auto) 6.5 % (0.0-7.3) 06/17/18 16:48 Eos % (Auto) 1.2 % (0.0-4.3) 06/17/18 16:48 Baso % (Auto) 1.2 % (0.0-1.8) 06/17/18 16:48 Lymph # 1.2 K/mm3 (1.2-5.4) 06/17/18 16:48 [place] # 1.1 K/mm3 (0.0-0.8) H 06/17/18 16:48 Eos # 0.2 K/mm3 (0.0-0.4) 06/17/18 16:48 Baso # 0.2 K/mm3 (0.0-0.1) H 06/17/18 16:48 Add Manual Diff Complete 06/18/18 05:25 Total Counted 100 06/18/18 05:25 Seg Neutrophils % Band Teacher 06/18/18 05:25 Seg Neuts % (Manual) 95.0 % (40.0-70.0) H 06/18/18 05:25 Band Neutrophils % 0 % 06/18/18 05:25 Lymphocytes % (Manual) 5.0 % (13.4-35.0) L 06/18/18 05:25 Reactive Lymphs % (Man) 0 % 06/18/18 05:25 Monocytes % (Manual) 0 % (0.0-7.3) 06/18/18 05:25 Eosinophils % (Manual) 0 % (0.0-4.3) 06/18/18 05:25 Basophils % (Manual) 0 % (0.0-1.8) 06/18/18 05:25 Metamyelocytes % 0 % 06/18/18 05:25 Myelocytes % 0 % 06/18/18 05:25 Promyelocytes % 0 % 06/18/18 05:25 Blast Cells % 0 % 06/18/18 05:25 Nucleated RBC % Not Reportable 06/18/18 05:25 Seg Neutrophils # 13.9 K/mm3 (1.8-7.7) H 06/17/18 16:48 Seg Neutrophils # Man 10.0 K/mm3 (1.8-7.7) H 06/18/18 05:25 Band Neutrophils # 0.0 K/mm3 06/18/18 05:25 Lymphocytes # (Manual) 0.5 K/mm3 (1.2-5.4) L 06/18/18 05:25 Abs React Lymphs (Man) 0.0 K/mm3 06/18/18 05:25 Monocytes # (Manual) 0.0 K/mm3 (0.0-0.8) 06/18/18 05:25 Eosinophils # (Manual) 0.0 K/mm3 (0.0-0.4) 06/18/18 05:25 Basophils # (Manual) 0.0 K/mm3 (0.0-0.1) 06/18/18 05:25 Metamyelocytes # 0.0 K/mm3 06/18/18 05:25 Myelocytes # 0.0 K/mm3 06/18/18 05:25 Promyelocytes # 0.0 K/mm3 06/18/18 05:25 Blast Cells # 0.0 K/mm3 06/18/18 05:25 WBC Morphology Not Reportable 06/18/18 05:25 Hypersegmented Neuts Not Reportable 06/18/18 05:25 Hyposegmented Neuts Not Reportable 06/18/18 05:25 Hypogranular Neuts Not Reportable 06/18/18 05:25 Smudge Cells Not Reportable 06/18/18 05:25 Toxic Granulation Not Reportable 06/18/18 05:25 Toxic Vacuolation Not Reportable 06/18/18 05:25 Dohle Bodies Not Reportable 06/18/18 05:25 Pelger-Huet Anomaly Not Reportable 06/18/18 05:25 Evangelina Rods Not Reportable 06/18/18 05:25 Platelet Estimate Consistent w auto 06/18/18 05:25 Clumped Platelets Not Reportable 06/18/18 05:25 Plt Clumps, EDTA Not Reportable 06/18/18 05:25 Large Platelets Not Reportable 06/18/18 05:25 Giant Platelets Not Reportable 06/18/18 05:25 Platelet Satelliting Not Reportable 06/18/18 05:25 Plt Morphology Comment Not Reportable 06/18/18 05:25 RBC Morphology Not Reportable 06/18/18 05:25 Dimorphic RBCs Not Reportable 06/18/18 05:25 Polychromasia Not Reportable 06/18/18 05:25 Hypochromasia Not Reportable 06/18/18 05:25 Poikilocytosis Few 06/18/18 05:25 Anisocytosis 1+ 06/18/18 05:25 Microcytosis Not Reportable 06/18/18 05:25 Macrocytosis Few 06/18/18 05:25 Spherocytes Not Reportable 06/18/18 05:25 Pappenheimer Bodies Not Reportable 06/18/18 05:25 Sickle Cells Not Reportable 06/18/18 05:25 Target Cells Not Reportable 06/18/18 05:25 Tear Drop Cells Not Reportable 06/18/18 05:25 Ovalocytes Not Reportable 06/18/18 05:25 Helmet Cells Not Reportable 06/18/18 05:25 Dukes-Triplett Bodies Not Reportable 06/18/18 05:25 Bureau Rings Not Reportable 06/18/18 05:25 [place] Cells Not Reportable 06/18/18 05:25 Bite Cells Not Reportable 06/18/18 05:25 Crenated Cell Not Reportable 06/18/18 05:25 Elliptocytes Not Reportable 06/18/18 05:25 Acanthocytes (Spur) Not Reportable 06/18/18 05:25 Rouleaux Not Reportable 06/18/18 05:25 Hemoglobin C Crystals Not Reportable 06/18/18 05:25 Schistocytes Not Reportable 06/18/18 05:25 Malaria parasites Not Reportable 06/18/18 05:25 [place] Bodies Not Reportable 06/18/18 05:25 Hem Pathologist Commnt No 06/18/18 05:25 Sodium 143 mmol/L (137-145) 06/18/18 05:25 Potassium 4.0 mmol/L (3.6-5.0) D 06/18/18 05:25 Chloride 107.0 mmol/L (98-107) 06/18/18 05:25 Carbon Dioxide 26 mmol/L (22-30) 06/18/18 05:25 Anion Gap 14 mmol/L 06/18/18 05:25 BUN 18 mg/dL (9-20) 06/18/18 05:25 Creatinine 0.5 mg/dL (0.8-1.5) L 06/18/18 05:25 Estimated GFR > 60 ml/min 06/18/18 05:25 BUN/Creatinine Ratio 36 % 06/18/18 05:25 Glucose 120 mg/dL (75-100) H 06/18/18 05:25 Hemoglobin A1c 5.1 % (4-6) 06/17/18 16:48 Lactic Acid 1.20 mmol/L (0.7-2.0) 06/17/18 19:09 Calcium 8.6 mg/dL (8.4-10.2) 06/18/18 05:25 Total Bilirubin 0.20 mg/dL (0.1-1.2) 06/18/18 05:25 AST 16 units/L (5-40) 06/18/18 05:25 ALT 16 units/L (7-56) 06/18/18 05:25 Alkaline Phosphatase 116 units/L (35-129) 06/18/18 05:25 NT-Pro-B Natriuret Pep 214.6 pg/mL (0-900) 06/17/18 17:47 Total Protein 6.8 g/dL (6.3-8.2) 06/18/18 05:25 Albumin 2.8 g/dL (3.9-5) L 06/18/18 05:25 Albumin/Globulin Ratio 0.7 % 06/18/18 05:25 Urine Color Yellow (Yellow) 06/17/18 20:07 Urine Turbidity Cloudy (Clear) 06/17/18 20:07 Urine pH 5.0 (5.0-7.0) 06/17/18 20:07 Ur Specific [place] 1.026 (1.003-1.030) 06/17/18 20:07 Urine Protein <15 mg/dl mg/dL (Negative) 06/17/18 20:07 Urine Glucose (UA) Neg mg/dL (Negative) 06/17/18 20:07 Urine Ketones Tr mg/dL (Negative) 06/17/18 20:07 Urine Blood Neg (Negative) 06/17/18 20:07 Urine Nitrite Neg (Negative) 06/17/18 20:07 Urine Bilirubin Neg (Negative) 06/17/18 20:07 Urine Urobilinogen < 2.0 mg/dL (<2.0) 06/17/18 20:07 Ur Leukocyte Esterase Lg (Negative) 06/17/18 20:07 Urine WBC (Auto) 57.0 /HPF (0.0-6.0) H 06/17/18 20:07 Urine RBC (Auto) 14.0 /HPF (0.0-6.0) 06/17/18 20:07 U Epithel Cells (Auto) < 1.0 /HPF (0-13.0) 06/17/18 20:07 Urine Bacteria (Auto) 2+ /HPF (Negative) 06/17/18 20:07 Urine WBC Clumps 3+ /HPF 06/17/18 20:07 Granular Casts 3 /LPF 06/17/18 20:07 Urine Mucus Few /HPF 06/17/18 20:07 Urine Yeast (Budding) 3+ /HPF 06/17/18 20:07 Active Medications - Current Medications Current Medications: Generic Name Dose Route Start Last Admin Trade Name Freq PRN Reason Stop Dose Admin Acetaminophen 650 mg 06/17/18 21:48 Tylenol PO Q4H PRN Pain MILD(1-3)/Fever >100.5/CABELLO Albuterol 2.5 mg 06/17/18 21:49 Proventil IH Q4HRT PRN Shortness Of Breath Albuterol/Ipratropium 1 ampul 06/18/18 08:00 06/18/18 15:29 Duoneb *Not For Prn Use* IH 1 ampul QIDRT [facility] Administration Lipase/Protease/Amylase 1 each 06/18/18 11:21 Pancreaze 10,500 Unit FEEDTUBE PRN PRN For Clogged Feeding Tube Enoxaparin Sodium 40 mg 06/17/18 22:00 06/17/18 23:20 Lovenox SUB-Q 40 mg QDAY@2200 [facility] Administration Famotidine 20 mg 06/17/18 22:00 06/18/18 10:04 Pepcid IV 20 mg BID [facility] Administration Hydromorphone HCl 0.5 mg 06/17/18 21:48 06/18/18 05:44 Dilaudid IV 0.5 mg Q3H PRN Administration Pain , Severe (7-10) Sodium Chloride 1,000 mls @ 100 mls/hr 06/17/18 22:00 Nacl 0.9% 1000 Ml IV DIRECT [facility] Azithromycin 500 mg/ Sodium 250 mls @ 250 mls/hr 06/17/18 22:00 06/17/18 22 :30 Chloride IV 250 mls/hr Q24H [facility] Administration Ceftriaxone Sodium 2 gm in 100 mls @ 200 mls/hr 06/17/18 22:00 06/18/18 00:45 Rocephin/Ns 2 Gm/100 Ml IV 200 mls/hr Q24H [facility] Administration Protocol Lansoprazole 30 mg 06/17/18 22:00 06/18/18 12:28 Prevacid Solutab FEEDTUBE 30 mg BID [facility] Administration Magnesium Oxide 400 mg 06/17/18 22:00 06/18/18 12:28 Mag-Ox PO 400 mg BID [facility] Administration Methylprednisolone Sodium Succinate 60 mg 06/17/18 22:00 06/18/18 13:29 Solu-Medrol IV 60 mg Q8HR [facility] Administration Metoprolol Tartrate 25 mg 06/17/18 22:00 06/18/18 10:04 Lopressor PO 25 mg BID [facility] Administration Ondansetron HCl 4 mg 06/17/18 21:47 Zofran IV Q3H PRN Nausea And Vomiting Scopolamine 1 each 06/17/18 22:00 06/17/18 23:21 Transderm-Scop TD 1 each Q3D [facility] Administration Simple Syrup 15 ml 06/18/18 11:21 Simple Syrup FEEDTUBE PRN PRN Hypoglycemia Simple Syrup 30 ml 06/18/18 11:21 Simple Syrup FEEDTUBE PRN PRN Hypoglycemia Sodium Bicarbonate 325 mg 06/18/18 11:21 Sodium Bicarbonate FEEDTUBE PRN PRN For Clogged Feeding Tube Sodium Chloride 10 ml 06/17/18 22:00 06/18/18 09:39 Sodium Chloride Flush Syringe 10 Ml IV 10 ml BID [facility] Administration Sodium Chloride 10 ml 06/17/18 21:48 Sodium Chloride Flush Syringe 10 Ml IV PRN PRN LINE FLUSH Nutrition/Malnutrition Assess - Dietary Evaluation Nutrition/Malnutrition Findings: Nutrition Notes Start: 06/18/18 11:10 Freq: Status: Active Protocol: Document 06/18/18 11:10 CP (Rec: 06/18/18 11:20 CP [id number]) Co-Sign 06/18/18 11:10 LP Nutrition Notes Need for Assessment generated from: MD Order Initial or Follow up Assessment Current Diagnosis Sepsis Other Pertinent Diagnosis Pneumonia Current Diet NPO Labs/Tests BG 120 Cr 0.5 Pertinent Medications Solu-medrol Height 5 ft 6 in Weight 63.503 kg [place] Body Weight (kg) 64.54 BMI 22.6 Weight Status Appropriate Subjective/Other Information MD consult for TF. P.t has PEG tube. Percent of energy/protein needs met: 0%/0% Burn Absent Trauma Absent #1 Nutrition Diagnosis Inadequate oral intake Etiology NPO status As Evidenced by Signs and Symptoms TF consult Is patient on ventilator? No Is Patient Ambulatory and/or Out of Bed No REE-([place]-St. Jeor-confined to bed) 1623.096 [facility] Additional Notes Protein needs:1.2-2 g/kg (76- 127g) Fluid needs: 1mL/kcal or per MD request Nutrition Intervention Change Diet Order: TF Nutrition Support: Vital AF 1.2 at 55mL/hr Water flush 100 mL q4h. Kcal 1,584 Protein (gm) 99 Fluid (mL) 1,006 Goal #1 TF to start Goal #2 TF to meet at least 80% of energy and protein needs Anticipated Discharge Needs: Unable to determine at this time Follow-Up By: 06/21/18 Additional Comments F/U: TF to start/TF tolerance
[2018-06-18] MEDS ORDERED: LOVENOX SUB-Q ONE (23:15)
[2018-06-18] MEDS: LOVENOX SUB-Q SCH (23:40)
[2018-06-19] MEDS: ROCEPHIN/NS 2 GM/100 ML 2 GM/100 ML BAG IV SCH ×2 (07:20→22:38)
[2018-06-19] MEDS: ZITHROMAX 500 MG in NACL 0.9% 250ML 250 ML IV SCH ×2 (07:21→22:37)
[2018-06-19] MEDS ORDERED: SOLU-Medrol ONE ×2 (08:02→14:17)
[2018-06-19] MEDS: SOLU-Medrol IV SCH ×3 (08:04→22:32)
[2018-06-19] MEDS ORDERED: PEPCID IV ONE (09:33)
[2018-06-19] MEDS ORDERED: LOPRESSOR ONE (09:33)
[2018-06-19] MEDS: PEPCID IV SCH ×2 (09:38→22:31)
[2018-06-19] MEDS: LOPRESSOR PO SCH ×2 (09:38→22:32)
[2018-06-19] MEDS: SODIUM CHLORIDE FLUSH SYRINGE 10 ML IV SCH ×2 (09:39→22:31)
[2018-06-19] MEDS: DUONEB *Not for PRN Use IH SCH ×5 (09:53→21:11)
[2018-06-19] MEDS ORDERED: DUONEB *Not for PRN Use IH ONE ×2 (09:54→13:16)
--- NOTE | 2018-06-19 10:37 | Progress Note ---
Assessment and Plan Assessment and plan: --Bilateral pneumonia; Empiric antibiotics, follow cultures, supportive care Pulmonary consultation --Leukocytosis; secondary to sepsis due to bilateral pneumonia Trending down --Coffee-ground discharge from tracheostomy tube; at the time of admission Now resolved, continue supportive care --History of dysphagia; status post PEG PEG feeds, PEG tube care --History of CVA with residual weakness; Physical therapy and occupational therapy as needed Continue aspirin and statin --Hypertension; continue current antihypertensives and when necessary medications --Severe malnutrition /Hypoalbuminemia; Nutrition consult, dietary supplements and supportive care --DVT prophylaxis; Lovenox --Full CODE STATUS Closely monitor the patient and adjust the management as needed Plan of care is reviewed with the patient's nurse History Interval history: Patient seen and examined medical records reviewed No new events reported by the nursing staff Patient is comfortable not in acute distress Afebrile, Tracheostomy site clean Hospitalist Physical - Constitutional Vitals: Temp Pulse Resp BP Pulse Ox 98.9 F 88 12 155/66 100 06/19/18 07:39 06/19/18 09:54 06/19/18 09:54 06/19/18 09:46 06/19/18 10:00 General appearance: Present: no acute distress, cachectic, disheveled, other ( tracheostomy, on T piece) - EENT Eyes: Present: PERRL, EOM intact - Neck Neck: Present: supple, normal ROM - Respiratory Respiratory effort: normal Respiratory: bilateral: diminished, rhonchi, negative: rales, wheezing - Cardiovascular Rhythm: regular Heart Sounds: Present: S1 & S2 - Extremities Extremities: no ischemia, abnormal (contracted) Extremity abnormal: edema - Abdominal General gastrointestinal: soft, non-tender, non-distended, normal bowel sounds, other (PEG tube in place) - Integumentary Integumentary: Present: clear, warm - Psychiatric Psychiatric: other (noncommunicative) - Neurologic Neurologic: other (noncommunicative) Results - Labs CBC & Chem 7: 06/18/18 05:25 06/18/18 05:25 Labs: Laboratory Last Values WBC 10.5 K/mm3 (4.5-11.0) 06/18/18 05:25 RBC 4.08 M/mm3 (3.65-5.03) 06/18/18 05:25 Hgb 9.1 gm/dl (11.8-15.2) L 06/18/18 05:25 Hct 30.2 % (35.5-45.6) L 06/18/18 05:25 MCV 74 fl (84-94) L 06/18/18 05:25 MCH 22 pg (28-32) L 06/18/18 05:25 MCHC 30 % (32-34) L 06/18/18 05:25 RDW 18.9 % (13.2-15.2) H 06/18/18 05:25 Plt Count 202 K/mm3 (140-440) 06/18/18 05:25 Lymph % (Auto) 7.0 % (13.4-35.0) L 06/17/18 16:48 [place] % (Auto) 6.5 % (0.0-7.3) 06/17/18 16:48 Eos % (Auto) 1.2 % (0.0-4.3) 06/17/18 16:48 Baso % (Auto) 1.2 % (0.0-1.8) 06/17/18 16:48 Lymph # 1.2 K/mm3 (1.2-5.4) 06/17/18 16:48 [place] # 1.1 K/mm3 (0.0-0.8) H 06/17/18 16:48 Eos # 0.2 K/mm3 (0.0-0.4) 06/17/18 16:48 Baso # 0.2 K/mm3 (0.0-0.1) H 06/17/18 16:48 Add Manual Diff Complete 06/18/18 05:25 Total Counted 100 06/18/18 05:25 Seg Neutrophils % [place] 06/18/18 05:25 Seg Neuts % (Manual) 95.0 % (40.0-70.0) H 06/18/18 05:25 Band Neutrophils % 0 % 06/18/18 05:25 Lymphocytes % (Manual) 5.0 % (13.4-35.0) L 06/18/18 05:25 Reactive Lymphs % (Man) 0 % 06/18/18 05:25 Monocytes % (Manual) 0 % (0.0-7.3) 06/18/18 05:25 Eosinophils % (Manual) 0 % (0.0-4.3) 06/18/18 05:25 Basophils % (Manual) 0 % (0.0-1.8) 06/18/18 05:25 Metamyelocytes % 0 % 06/18/18 05:25 Myelocytes % 0 % 06/18/18 05:25 Promyelocytes % 0 % 06/18/18 05:25 Blast Cells % 0 % 06/18/18 05:25 Nucleated RBC % Not Reportable 06/18/18 05:25 Seg Neutrophils # 13.9 K/mm3 (1.8-7.7) H 06/17/18 16:48 Seg Neutrophils # Man 10.0 K/mm3 (1.8-7.7) H 06/18/18 05:25 Band Neutrophils # 0.0 K/mm3 06/18/18 05:25 Lymphocytes # (Manual) 0.5 K/mm3 (1.2-5.4) L 06/18/18 05:25 Abs React Lymphs (Man) 0.0 K/mm3 06/18/18 05:25 Monocytes # (Manual) 0.0 K/mm3 (0.0-0.8) 06/18/18 05:25 Eosinophils # (Manual) 0.0 K/mm3 (0.0-0.4) 06/18/18 05:25 Basophils # (Manual) 0.0 K/mm3 (0.0-0.1) 06/18/18 05:25 Metamyelocytes # 0.0 K/mm3 06/18/18 05:25 Myelocytes # 0.0 K/mm3 06/18/18 05:25 Promyelocytes # 0.0 K/mm3 06/18/18 05:25 Blast Cells # 0.0 K/mm3 06/18/18 05:25 WBC Morphology Not Reportable 06/18/18 05:25 Hypersegmented Neuts Not Reportable 06/18/18 05:25 Hyposegmented Neuts Not Reportable 06/18/18 05:25 Hypogranular Neuts Not Reportable 06/18/18 05:25 Smudge Cells Not Reportable 06/18/18 05:25 Toxic Granulation Not Reportable 06/18/18 05:25 Toxic Vacuolation Not Reportable 06/18/18 05:25 Dohle Bodies Not Reportable 06/18/18 05:25 Pelger-Huet Anomaly Not Reportable 06/18/18 05:25 Evangelina Rods Not Reportable 06/18/18 05:25 Platelet Estimate Consistent w auto 06/18/18 05:25 Clumped Platelets Not Reportable 06/18/18 05:25 Plt Clumps, EDTA Not Reportable 06/18/18 05:25 Large Platelets Not Reportable 06/18/18 05:25 Giant Platelets Not Reportable 06/18/18 05:25 Platelet Satelliting Not Reportable 06/18/18 05:25 Plt Morphology Comment Not Reportable 06/18/18 05:25 RBC Morphology Not Reportable 06/18/18 05:25 Dimorphic RBCs Not Reportable 06/18/18 05:25 Polychromasia Not Reportable 06/18/18 05:25 Hypochromasia Not Reportable 06/18/18 05:25 Poikilocytosis Few 06/18/18 05:25 Anisocytosis 1+ 06/18/18 05:25 Microcytosis Not Reportable 06/18/18 05:25 Macrocytosis Few 06/18/18 05:25 Spherocytes Not Reportable 06/18/18 05:25 Pappenheimer Bodies Not Reportable 06/18/18 05:25 Sickle Cells Not Reportable 06/18/18 05:25 Target Cells Not Reportable 06/18/18 05:25 Tear Drop Cells Not Reportable 06/18/18 05:25 Ovalocytes Not Reportable 06/18/18 05:25 Helmet Cells Not Reportable 06/18/18 05:25 [place] Bodies Not Reportable 06/18/18 05:25 [place] Rings Not Reportable 06/18/18 05:25 Lucretia Cells Not Reportable 06/18/18 05:25 Bite Cells Not Reportable 06/18/18 05:25 Crenated Cell Not Reportable 06/18/18 05:25 Elliptocytes Not Reportable 06/18/18 05:25 Acanthocytes (Spur) Not Reportable 06/18/18 05:25 Rouleaux Not Reportable 06/18/18 05:25 Hemoglobin C Crystals Not Reportable 06/18/18 05:25 Schistocytes Not Reportable 06/18/18 05:25 Malaria parasites Not Reportable 06/18/18 05:25 [place] Bodies Not Reportable 06/18/18 05:25 Hem Pathologist Commnt No 06/18/18 05:25 Sodium 143 mmol/L (137-145) 06/18/18 05:25 Potassium 4.0 mmol/L (3.6-5.0) D 06/18/18 05:25 Chloride 107.0 mmol/L (98-107) 06/18/18 05:25 Carbon Dioxide 26 mmol/L (22-30) 06/18/18 05:25 Anion Gap 14 mmol/L 06/18/18 05:25 BUN 18 mg/dL (9-20) 06/18/18 05:25 Creatinine 0.5 mg/dL (0.8-1.5) L 06/18/18 05:25 Estimated GFR > 60 ml/min 06/18/18 05:25 BUN/Creatinine Ratio 36 % 06/18/18 05:25 Glucose 120 mg/dL (75-100) H 06/18/18 05:25 Hemoglobin A1c 5.1 % (4-6) 06/17/18 16:48 Lactic Acid 1.20 mmol/L (0.7-2.0) 06/17/18 19:09 Calcium 8.6 mg/dL (8.4-10.2) 06/18/18 05:25 Total Bilirubin 0.20 mg/dL (0.1-1.2) 06/18/18 05:25 AST 16 units/L (5-40) 06/18/18 05:25 ALT 16 units/L (7-56) 06/18/18 05:25 Alkaline Phosphatase 116 units/L (35-129) 06/18/18 05:25 NT-Pro-B Natriuret Pep 214.6 pg/mL (0-900) 06/17/18 17:47 Total Protein 6.8 g/dL (6.3-8.2) 06/18/18 05:25 Albumin 2.8 g/dL (3.9-5) L 06/18/18 05:25 Albumin/Globulin Ratio 0.7 % 06/18/18 05:25 Urine Color Yellow (Yellow) 06/17/18 20:07 Urine Turbidity Cloudy (Clear) 06/17/18 20:07 Urine pH 5.0 (5.0-7.0) 06/17/18 20:07 Ur Specific [place] 1.026 (1.003-1.030) 06/17/18 20:07 Urine Protein <15 mg/dl mg/dL (Negative) 06/17/18 20:07 Urine Glucose (UA) Neg mg/dL (Negative) 06/17/18 20:07 Urine Ketones Tr mg/dL (Negative) 06/17/18 20:07 Urine Blood Neg (Negative) 06/17/18 20:07 Urine Nitrite Neg (Negative) 06/17/18 20:07 Urine Bilirubin Neg (Negative) 06/17/18 20:07 Urine Urobilinogen < 2.0 mg/dL (<2.0) 06/17/18 20:07 Ur Leukocyte Esterase Lg (Negative) 06/17/18 20:07 Urine WBC (Auto) 57.0 /HPF (0.0-6.0) H 06/17/18 20:07 Urine RBC (Auto) 14.0 /HPF (0.0-6.0) 06/17/18 20:07 U Epithel Cells (Auto) < 1.0 /HPF (0-13.0) 06/17/18 20:07 Urine Bacteria (Auto) 2+ /HPF (Negative) 06/17/18 20:07 Urine WBC Clumps 3+ /HPF 06/17/18 20:07 Granular Casts 3 /LPF 06/17/18 20:07 Urine Mucus Few /HPF 06/17/18 20:07 Urine Yeast (Budding) 3+ /HPF 06/17/18 20:07 Active Medications - Current Medications Current Medications: Generic Name Dose Route Start Last Admin Trade Name Freq PRN Reason Stop Dose Admin Acetaminophen 650 mg 06/17/18 21:48 Tylenol PO Q4H PRN Pain MILD(1-3)/Fever >100.5/CABELLO Albuterol 2.5 mg 06/17/18 21:49 Proventil IH Q4HRT PRN Shortness Of Breath Albuterol/Ipratropium 1 ampul 06/18/18 08:00 06/19/18 09:54 Duoneb *Not For Prn Use* IH 1 ampul QIDRT OSIRIS Administration Lipase/Protease/Amylase 1 each 06/18/18 11:21 Pancreaze 10,500 Unit FEEDTUBE PRN PRN For Clogged Feeding Tube Enoxaparin Sodium 40 mg 06/17/18 22:00 06/18/18 23:40 Lovenox SUB-Q 40 mg QDAY@2200 OSIRIS Administration Famotidine 20 mg 06/17/18 22:00 06/19/18 09:38 Pepcid IV 20 mg BID OSIRIS Administration Hydromorphone HCl 0.5 mg 06/17/18 21:48 06/18/18 11:48 Dilaudid IV 0.5 mg Q3H PRN Administration Pain , Severe (7-10) Sodium Chloride 1,000 mls @ 100 mls/hr 06/17/18 22:00 Nacl 0.9% 1000 Ml IV DIRECT OSIRIS Azithromycin 500 mg/ Sodium 250 mls @ 250 mls/hr 06/17/18 22:00 06/19/18 07:21 Chloride IV 250 mls/hr Q24H OSIRIS Administration Ceftriaxone Sodium 2 gm in 100 mls @ 200 mls/hr 06/17/18 22:00 06/19/18 07:20 Rocephin/Ns 2 Gm/100 Ml IV 200 mls/hr Q24H OSIRIS Administration Protocol Lansoprazole 30 mg 06/17/18 22:00 06/18/18 23:45 Prevacid Solutab FEEDTUBE 30 mg BID OSIRIS Administration Magnesium Oxide 400 mg 06/17/18 22:00 06/18/18 23:45 Mag-Ox PO 400 mg BID OSIRIS Administration Methylprednisolone Sodium Succinate 60 mg 06/17/18 22:00 06/19/18 08:04 Solu-Medrol IV 60 mg Q8HR OSIRIS Administration Metoprolol Tartrate 25 mg 06/17/18 22:00 06/19/18 09:38 Lopressor PO 25 mg BID OSIRIS Administration Ondansetron HCl 4 mg 06/17/18 21:47 Zofran IV Q3H PRN Nausea And Vomiting Scopolamine 1 each 06/17/18 22:00 06/17/18 23:21 Transderm-Scop TD 1 each Q3D OSIRIS Administration Simple Syrup 15 ml 06/18/18 11:21 Simple Syrup FEEDTUBE PRN PRN Hypoglycemia Simple Syrup 30 ml 06/18/18 11:21 Simple Syrup FEEDTUBE PRN PRN Hypoglycemia Sodium Bicarbonate 325 mg 06/18/18 11:21 Sodium Bicarbonate FEEDTUBE PRN PRN For Clogged Feeding Tube Sodium Chloride 10 ml 06/17/18 22:00 06/19/18 09:39 Sodium Chloride Flush Syringe 10 Ml IV 10 ml BID OSIRIS Administration Sodium Chloride 10 ml 06/17/18 21:48 Sodium Chloride Flush Syringe 10 Ml IV PRN PRN LINE FLUSH Nutrition/Malnutrition Assess - Dietary Evaluation Nutrition/Malnutrition Findings: Nutrition Notes Start: 06/18/18 11:10 Freq: Status: Active Protocol: Document 06/18/18 11:10 CP (Rec: 06/18/18 11:20 CP [id number]) Co-Sign 06/18/18 11:10 LP Nutrition Notes Need for Assessment generated from: MD Order Initial or Follow up Assessment Current Diagnosis Sepsis Other Pertinent Diagnosis Pneumonia Current Diet NPO Labs/Tests BG 120 Cr 0.5 Pertinent Medications Solu-medrol Height 5 ft 6 in Weight 63.503 kg [place] Body Weight (kg) 64.54 BMI 22.6 Weight Status Appropriate Subjective/Other Information MD consult for TF. P.t has PEG tube. Percent of energy/protein needs met: 0%/0% Burn Absent Trauma Absent #1 Nutrition Diagnosis Inadequate oral intake Etiology NPO status As Evidenced by Signs and Symptoms TF consult Is patient on ventilator? No Is Patient Ambulatory and/or Out of Bed No REE-([facility]-confined to bed) [phone] Calculation Used for Recommendations [facility] Additional Notes Protein needs:1.2-2 g/kg (76- 127g) Fluid needs: 1mL/kcal or per MD request Nutrition Intervention Change Diet Order: TF Nutrition Support: Vital AF 1.2 at 55mL/hr Water flush 100 mL q4h. Kcal 1,584 Protein (gm) 99 Fluid (mL) 1,006 Goal #1 TF to start Goal #2 TF to meet at least 80% of energy and protein needs Anticipated Discharge Needs: Unable to determine at this time Follow-Up By: 06/21/18 Additional Comments F/U: TF to start/TF tolerance
[2018-06-19] MEDS: MAG-OX PO SCH ×2 (10:41→22:30)
[2018-06-19] MEDS: PREVACID SOLUTAB FEEDTUBE SCH ×2 (10:41→22:31)
[2018-06-19] MEDS ORDERED: DILAUDID ONE (13:05)
[2018-06-19] MEDS: LOVENOX SUB-Q SCH (22:31)
[2018-06-19] MEDS: NACL 0.9% 1000 ML 1,000 ML IV SCH (22:38)
[2018-06-20] MEDS: DUONEB *Not for PRN Use IH SCH ×4 (02:31→20:22)
[2018-06-20] MEDS: SOLU-Medrol IV SCH ×3 (06:16→21:39)
[2018-06-20] MEDS: PEPCID IV SCH ×2 (09:42→21:39)
[2018-06-20] MEDS: SODIUM CHLORIDE FLUSH SYRINGE 10 ML IV SCH ×2 (09:43→21:47)
[2018-06-20] MEDS: MAG-OX PO SCH ×2 (09:43→21:40)
[2018-06-20] MEDS: LOPRESSOR PO SCH ×2 (09:43→21:40)
[2018-06-20] MEDS: PREVACID SOLUTAB FEEDTUBE SCH ×2 (10:11→21:40)
[2018-06-20] MEDS: NACL 0.9% 1000 ML 1,000 ML IV SCH (10:39)
--- NOTE | 2018-06-20 16:59 | Progress Note ---
Assessment and Plan Assessment and plan: --Bilateral pneumonia; Empiric antibiotics, follow cultures, Pulmonary consultation --Leukocytosis;due to sepsis due to bilateral pneumonia --h/o Tracheostomy : Trach care --Coffee-ground discharge from tracheostomy tube; at the time of admission Now resolved, continue supportive care --History of dysphagia; status post PEG PEG feeds, PEG tube care --History of CVA with residual weakness; Physical therapy and occupational therapy as needed Continue aspirin and statin --Hypertension; continue current antihypertensives and when necessary medications --Severe malnutrition /Hypoalbuminemia; Nutrition consult, dietary supplements and supportive care --DVT prophylaxis; Lovenox --Full CODE STATUS --Discharge planning per case management, possible discharge back to care home once stable Closely monitor the patient and adjust the management as needed Plan of care is reviewed with the patient's nurse History Interval history: Patient seen and examined medical records reviewed No new events reported by the nursing Patient is comfortable Vital signs reviewed Hospitalist Physical - Constitutional Vitals: Temp Pulse Resp BP Pulse Ox 98.3 F 60 20 145/71 100 06/20/18 02:43 06/20/18 14:05 06/20/18 14:05 06/20/18 09:43 06/20/18 10:00 General appearance: Present: no acute distress, cachectic, disheveled, other ( tracheostomy,) - EENT Eyes: Present: PERRL, EOM intact - Neck Neck: Present: supple, normal ROM - Respiratory Respiratory effort: normal Respiratory: bilateral: diminished, negative: rales, rhonchi, wheezing - Cardiovascular Rhythm: regular Heart Sounds: Present: S1 & S2 - Extremities Extremities: abnormal (contracted) Extremity abnormal: edema - Abdominal General gastrointestinal: soft, non-tender, non-distended, normal bowel sounds, other (PEG tube in place) - Integumentary Integumentary: Present: clear, warm - Psychiatric Psychiatric: other (noncommunicative) - Neurologic Neurologic: other (noncommunicative) Results - Labs CBC & Chem 7: 06/18/18 05:25 06/18/18 05:25 Labs: Laboratory Last Values WBC 10.5 K/mm3 (4.5-11.0) 06/18/18 05:25 RBC 4.08 M/mm3 (3.65-5.03) 06/18/18 05:25 Hgb 9.1 gm/dl (11.8-15.2) L 06/18/18 05:25 Hct 30.2 % (35.5-45.6) L 06/18/18 05:25 MCV 74 fl (84-94) L 06/18/18 05:25 MCH 22 pg (28-32) L 06/18/18 05:25 MCHC 30 % (32-34) L 06/18/18 05:25 RDW 18.9 % (13.2-15.2) H 06/18/18 05:25 Plt Count 202 K/mm3 (140-440) 06/18/18 05:25 Lymph % (Auto) 7.0 % (13.4-35.0) L 06/17/18 16:48 [place] % (Auto) 6.5 % (0.0-7.3) 06/17/18 16:48 Eos % (Auto) 1.2 % (0.0-4.3) 06/17/18 16:48 Baso % (Auto) 1.2 % (0.0-1.8) 06/17/18 16:48 Lymph # 1.2 K/mm3 (1.2-5.4) 06/17/18 16:48 [place] # 1.1 K/mm3 (0.0-0.8) H 06/17/18 16:48 Eos # 0.2 K/mm3 (0.0-0.4) 06/17/18 16:48 Baso # 0.2 K/mm3 (0.0-0.1) H 06/17/18 16:48 Add Manual Diff Complete 06/18/18 05:25 Total Counted 100 06/18/18 05:25 Seg Neutrophils % Diabetes Specialist 06/18/18 05:25 Seg Neuts % (Manual) 95.0 % (40.0-70.0) H 06/18/18 05:25 Band Neutrophils % 0 % 06/18/18 05:25 Lymphocytes % (Manual) 5.0 % (13.4-35.0) L 06/18/18 05:25 Reactive Lymphs % (Man) 0 % 06/18/18 05:25 Monocytes % (Manual) 0 % (0.0-7.3) 06/18/18 05:25 Eosinophils % (Manual) 0 % (0.0-4.3) 06/18/18 05:25 Basophils % (Manual) 0 % (0.0-1.8) 06/18/18 05:25 Metamyelocytes % 0 % 06/18/18 05:25 Myelocytes % 0 % 06/18/18 05:25 Promyelocytes % 0 % 06/18/18 05:25 Blast Cells % 0 % 06/18/18 05:25 Nucleated RBC % Not Reportable 06/18/18 05:25 Seg Neutrophils # 13.9 K/mm3 (1.8-7.7) H 06/17/18 16:48 Seg Neutrophils # Man 10.0 K/mm3 (1.8-7.7) H 06/18/18 05:25 Band Neutrophils # 0.0 K/mm3 06/18/18 05:25 Lymphocytes # (Manual) 0.5 K/mm3 (1.2-5.4) L 06/18/18 05:25 Abs React Lymphs (Man) 0.0 K/mm3 06/18/18 05:25 Monocytes # (Manual) 0.0 K/mm3 (0.0-0.8) 06/18/18 05:25 Eosinophils # (Manual) 0.0 K/mm3 (0.0-0.4) 06/18/18 05:25 Basophils # (Manual) 0.0 K/mm3 (0.0-0.1) 06/18/18 05:25 Metamyelocytes # 0.0 K/mm3 06/18/18 05:25 Myelocytes # 0.0 K/mm3 06/18/18 05:25 Promyelocytes # 0.0 K/mm3 06/18/18 05:25 Blast Cells # 0.0 K/mm3 06/18/18 05:25 WBC Morphology Not Reportable 06/18/18 05:25 Hypersegmented Neuts Not Reportable 06/18/18 05:25 Hyposegmented Neuts Not Reportable 06/18/18 05:25 Hypogranular Neuts Not Reportable 06/18/18 05:25 Smudge Cells Not Reportable 06/18/18 05:25 Toxic Granulation Not Reportable 06/18/18 05:25 Toxic Vacuolation Not Reportable 06/18/18 05:25 Dohle Bodies Not Reportable 06/18/18 05:25 Pelger-Huet Anomaly Not Reportable 06/18/18 05:25 Evangelina Rods Not Reportable 06/18/18 05:25 Platelet Estimate Consistent w auto 06/18/18 05:25 Clumped Platelets Not Reportable 06/18/18 05:25 Plt Clumps, EDTA Not Reportable 06/18/18 05:25 Large Platelets Not Reportable 06/18/18 05:25 Giant Platelets Not Reportable 06/18/18 05:25 Platelet Satelliting Not Reportable 06/18/18 05:25 Plt Morphology Comment Not Reportable 06/18/18 05:25 RBC Morphology Not Reportable 06/18/18 05:25 Dimorphic RBCs Not Reportable 06/18/18 05:25 Polychromasia Not Reportable 06/18/18 05:25 Hypochromasia Not Reportable 06/18/18 05:25 Poikilocytosis Few 06/18/18 05:25 Anisocytosis 1+ 06/18/18 05:25 Microcytosis Not Reportable 06/18/18 05:25 Macrocytosis Few 06/18/18 05:25 Spherocytes Not Reportable 06/18/18 05:25 Pappenheimer Bodies Not Reportable 06/18/18 05:25 Sickle Cells Not Reportable 06/18/18 05:25 Target Cells Not Reportable 06/18/18 05:25 Tear Drop Cells Not Reportable 06/18/18 05:25 Ovalocytes Not Reportable 06/18/18 05:25 Helmet Cells Not Reportable 06/18/18 05:25 [place] Bodies Not Reportable 06/18/18 05:25 [place] Rings Not Reportable 06/18/18 05:25 Lucretia Cells Not Reportable 06/18/18 05:25 Bite Cells Not Reportable 06/18/18 05:25 Crenated Cell Not Reportable 06/18/18 05:25 Elliptocytes Not Reportable 06/18/18 05:25 Acanthocytes (Spur) Not Reportable 06/18/18 05:25 Rouleaux Not Reportable 06/18/18 05:25 Hemoglobin C Crystals Not Reportable 06/18/18 05:25 Schistocytes Not Reportable 06/18/18 05:25 Malaria parasites Not Reportable 06/18/18 05:25 [place] Bodies Not Reportable 06/18/18 05:25 Hem Pathologist Commnt No 06/18/18 05:25 Sodium 143 mmol/L (137-145) 06/18/18 05:25 Potassium 4.0 mmol/L (3.6-5.0) D 06/18/18 05:25 Chloride 107.0 mmol/L (98-107) 06/18/18 05:25 Carbon Dioxide 26 mmol/L (22-30) 06/18/18 05:25 Anion Gap 14 mmol/L 06/18/18 05:25 BUN 18 mg/dL (9-20) 06/18/18 05:25 Creatinine 0.5 mg/dL (0.8-1.5) L 06/18/18 05:25 Estimated GFR > 60 ml/min 06/18/18 05:25 BUN/Creatinine Ratio 36 % 06/18/18 05:25 Glucose 120 mg/dL (75-100) H 06/18/18 05:25 POC Glucose 120 (70-105) H 06/20/18 13:05 Hemoglobin A1c 5.1 % (4-6) 06/17/18 16:48 Lactic Acid 1.20 mmol/L (0.7-2.0) 06/17/18 19:09 Calcium 8.6 mg/dL (8.4-10.2) 06/18/18 05:25 Total Bilirubin 0.20 mg/dL (0.1-1.2) 06/18/18 05:25 AST 16 units/L (5-40) 06/18/18 05:25 ALT 16 units/L (7-56) 06/18/18 05:25 Alkaline Phosphatase 116 units/L (35-129) 06/18/18 05:25 NT-Pro-B Natriuret Pep 214.6 pg/mL (0-900) 06/17/18 17:47 Total Protein 6.8 g/dL (6.3-8.2) 06/18/18 05:25 Albumin 2.8 g/dL (3.9-5) L 06/18/18 05:25 Albumin/Globulin Ratio 0.7 % 06/18/18 05:25 Urine Color Yellow (Yellow) 06/17/18 20:07 Urine Turbidity Cloudy (Clear) 06/17/18 20:07 Urine pH 5.0 (5.0-7.0) 06/17/18 20:07 Ur Specific [place] 1.026 (1.003-1.030) 06/17/18 20:07 Urine Protein <15 mg/dl mg/dL (Negative) 06/17/18 20:07 Urine Glucose (UA) Neg mg/dL (Negative) 06/17/18 20:07 Urine Ketones Tr mg/dL (Negative) 06/17/18 20:07 Urine Blood Neg (Negative) 06/17/18 20:07 Urine Nitrite Neg (Negative) 06/17/18 20:07 Urine Bilirubin Neg (Negative) 06/17/18 20:07 Urine Urobilinogen < 2.0 mg/dL (<2.0) 06/17/18 20:07 Ur Leukocyte Esterase Lg (Negative) 06/17/18 20:07 Urine WBC (Auto) 57.0 /HPF (0.0-6.0) H 06/17/18 20:07 Urine RBC (Auto) 14.0 /HPF (0.0-6.0) 06/17/18 20:07 U Epithel Cells (Auto) < 1.0 /HPF (0-13.0) 06/17/18 20:07 Urine Bacteria (Auto) 2+ /HPF (Negative) 06/17/18 20:07 Urine WBC Clumps 3+ /HPF 06/17/18 20:07 Granular Casts 3 /LPF 06/17/18 20:07 Urine Mucus Few /HPF 06/17/18 20:07 Urine Yeast (Budding) 3+ /HPF 06/17/18 20:07 Active Medications - Current Medications Current Medications: Generic Name Dose Route Start Last Admin Trade Name Freq PRN Reason Stop Dose Admin Acetaminophen 650 mg 06/17/18 21:48 Tylenol PO Q4H PRN Pain MILD(1-3)/Fever >100.5/CABELLO Albuterol 2.5 mg 06/17/18 21:49 Proventil IH Q4HRT PRN Shortness Of Breath Albuterol/Ipratropium 1 ampul 06/19/18 20:00 06/20/18 13:50 Duoneb *Not For Prn Use* IH 1 ampul Q6HRT OSIRIS Administration Lipase/Protease/Amylase 1 each 06/18/18 11:21 Pancreaze 10,500 Unit FEEDTUBE PRN PRN For Clogged Feeding Tube Enoxaparin Sodium 40 mg 06/17/18 22:00 06/19/18 22:31 Lovenox SUB-Q 40 mg QDAY@2200 OSIRIS Administration Famotidine 20 mg 06/17/18 22:00 06/20/18 09:42 Pepcid IV 20 mg BID OSIRIS Administration Hydromorphone HCl 0.5 mg 06/17/18 21:48 06/18/18 11:48 Dilaudid IV 0.5 mg Q3H PRN Administration Pain , Severe (7-10) Sodium Chloride 1,000 mls @ 100 mls/hr 06/17/18 22:00 06/20/18 10:39 Nacl 0.9% 1000 Ml IV 100 mls/hr DIRECT OSIRIS Administration Azithromycin 500 mg/ Sodium 250 mls @ 250 mls/hr 06/17/18 22:00 06/19/18 22:37 Chloride IV 06/21/18 22:59 250 mls/hr Q24H OSIRIS Administration Ceftriaxone Sodium 2 gm in 100 mls @ 200 mls/hr 06/17/18 22:00 06/19/18 22:38 Rocephin/Ns 2 Gm/100 Ml IV 200 mls/hr Q24H OSIRIS Administration Protocol Lansoprazole 30 mg 06/17/18 22:00 06/20/18 10:11 Prevacid Solutab FEEDTUBE 30 mg BID OSIRIS Administration Magnesium Oxide 400 mg 06/17/18 22:00 06/20/18 09:43 Mag-Ox PO 400 mg BID OSIRIS Administration Methylprednisolone Sodium Succinate 60 mg 06/17/18 22:00 06/20/18 13:28 Solu-Medrol IV 60 mg Q8HR OSIRIS Administration Metoprolol Tartrate 25 mg 06/17/18 22:00 06/20/18 09:43 Lopressor PO 25 mg BID OSIRIS Administration Ondansetron HCl 4 mg 06/17/18 21:47 Zofran IV Q3H PRN Nausea And Vomiting Scopolamine 1 each 06/17/18 22:00 06/17/18 23:21 Transderm-Scop TD 1 each Q3D OSIRIS Administration Simple Syrup 15 ml 06/18/18 11:21 Simple Syrup FEEDTUBE PRN PRN Hypoglycemia Simple Syrup 30 ml 06/18/18 11:21 Simple Syrup FEEDTUBE PRN PRN Hypoglycemia Sodium Bicarbonate 325 mg 06/18/18 11:21 Sodium Bicarbonate FEEDTUBE PRN PRN For Clogged Feeding Tube Sodium Chloride 10 ml 06/17/18 22:00 06/20/18 09:43 Sodium Chloride Flush Syringe 10 Ml IV 10 ml BID OSIRIS Administration Sodium Chloride 10 ml 06/17/18 21:48 Sodium Chloride Flush Syringe 10 Ml IV PRN PRN LINE FLUSH Nutrition/Malnutrition Assess - Dietary Evaluation Nutrition/Malnutrition Findings: Nutrition Notes Start: 06/18/18 11:10 Freq: Status: Active Protocol: Document 06/18/18 11:10 CP (Rec: 06/18/18 11:20 CP [id number]) Co-Sign 06/18/18 11:10 LP Nutrition Notes Need for Assessment generated from: MD Order Initial or Follow up Assessment Current Diagnosis Sepsis Other Pertinent Diagnosis Pneumonia Current Diet NPO Labs/Tests BG 120 Cr 0.5 Pertinent Medications Solu-medrol Height 5 ft 6 in Weight 63.503 kg [place] Body Weight (kg) 64.54 BMI 22.6 Weight Status Appropriate Subjective/Other Information MD consult for TF. P.t has PEG tube. Percent of energy/protein needs met: 0%/0% Burn Absent Trauma Absent #1 Nutrition Diagnosis Inadequate oral intake Etiology NPO status As Evidenced by Signs and Symptoms TF consult Is patient on ventilator? No Is Patient Ambulatory and/or Out of Bed No REE-([facility]-confined to bed) [phone] Calculation Used for Recommendations [facility] Additional Notes Protein needs:1.2-2 g/kg (76- 127g) Fluid needs: 1mL/kcal or per MD request Nutrition Intervention Change Diet Order: TF Nutrition Support: Vital AF 1.2 at 55mL/hr Water flush 100 mL q4h. Kcal 1,584 Protein (gm) 99 Fluid (mL) 1,006 Goal #1 TF to start Goal #2 TF to meet at least 80% of energy and protein needs Anticipated Discharge Needs: Unable to determine at this time Follow-Up By: 06/21/18 Additional Comments F/U: TF to start/TF tolerance
[2018-06-20] MEDS: ROCEPHIN/NS 2 GM/100 ML 2 GM/100 ML BAG IV SCH (21:30)
[2018-06-20] MEDS: TRANSDERM-SCOP TD SCH (21:40)
[2018-06-20] MEDS: LOVENOX SUB-Q SCH (21:41)
[2018-06-20] MEDS: ZITHROMAX 500 MG in NACL 0.9% 250ML 250 ML IV SCH (21:44)
[2018-06-21] MEDS: DUONEB *Not for PRN Use IH SCH ×3 (01:45→15:10)
[2018-06-21] MEDS: NACL 0.9% 1000 ML 1,000 ML IV SCH (06:34)
[2018-06-21] MEDS: SOLU-Medrol IV SCH ×2 (06:34→13:06)
[2018-06-21] MEDS: MAG-OX PO SCH (10:06)
[2018-06-21] MEDS: LOPRESSOR PO SCH (10:06)
[2018-06-21] MEDS: PREVACID SOLUTAB FEEDTUBE SCH (10:06)
[2018-06-21] MEDS: SODIUM CHLORIDE FLUSH SYRINGE 10 ML IV SCH (10:07)
[2018-06-21 14:11] VITALS: BP 170/84
--- NOTE | 2018-06-21 14:58 | Discharge Summary ---
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 Consulting Provider: CHIDI GUAMAN Physician Instructions: Reason For Exam: Pneumonia 06/17/18 21:52 Consult to Dietitian/Nutrition [CONS] Routine Physician Instructions: Reason For Exam: patient has PEG tube Reason for Consult: Write/Manage Tube Feeding Hospitalization Reason for admission: Worsening shortness of breath/coffee ground discharge fro trach tube Condition: Fair Pertinent studies: CXR : Winnie interstitial airspace disease Hospital course: 68 yr old male pt with chronic resp failure s/p Tracheostomy a [facility] resident was admitted with acute resp distress and coffee ground emesis from trach tube, Patient also noted to have winnie pneumonia. Symptomatically managed,received total 5 days of antibiotics,Rocephen and zithromax. Symptoms significantly improved,today pt is afibrile,vital signs,stable. Stable for discharge back to SNF today. Discharge diagnosis: --Bilateral pneumonia; Empiric antibiotics, follow cultures, Pulmonary consultation --Leukocytosis;due to sepsis due to bilateral pneumonia --h/o Tracheostomy : Trach care --Coffee-ground discharge from tracheostomy tube; at the time of admission Now resolved, continue supportive care --History of dysphagia; status post PEG PEG feeds, PEG tube care --History of CVA with residual weakness; Physical therapy and occupational therapy as needed Continue aspirin and statin --Hypertension; continue current antihypertensives and when necessary medications --Severe malnutrition /Hypoalbuminemia; Nutrition consult, dietary supplements and supportive care --DVT prophylaxis; Lovenox --Full CODE STATUS --Discharge planning per case management, today . Plan of care is reviewed with the patient's nurse and CM Disposition: [id number]/[id number] Time spent for discharge: 34 min Core Measure Documentation - Palliative Care Palliative Care/ Comfort Measures: Not Applicable - Core Measures Any of the following diagnoses?: none Exam - Constitutional Vitals: Temp Pulse Resp BP Pulse Ox 99.3 F 71 18 170/84 100 06/21/18 13:32 06/21/18 13:32 06/21/18 13:32 06/21/18 13:32 06/21/18 13:32 General appearance: Present: no acute distress, well-nourished, other (status post trach and PEG) - EENT Eyes: Present: PERRL, EOM intact - Neck Neck: Present: supple, normal ROM - Respiratory Respiratory effort: normal Respiratory: bilateral: diminished, rhonchi, negative: rales, wheezing - Cardiovascular Rhythm: regular Heart Sounds: Present: S1 & S2 - Extremities Extremities: no ischemia, abnormal (contracted) Extremity abnormal: edema - Abdominal General gastrointestinal: Present: soft, non-tender, non-distended, other (PEG tube in place) - Integumentary Integumentary: Present: clear, warm - Musculoskeletal Musculoskeletal: other (noncommunicative) - Psychiatric Psychiatric: other (noncommunicative) - Neurologic Neurologic: other (trach and PEG) Plan Activity: advance as tolerated, fall precautions Diet: other (Tube feeding per Protocol) Additional Instructions: Aspiration precautions. Trach and PEG care Follow up with: [facility] [Other] - 3-5 Days
[2018-06-21] MEDS ORDERED: SODIUM BICARBONATE FEEDTUBE PRN (16:41)
[2018-06-21] MEDS ORDERED: SIMPLE SYRUP FEEDTUBE PRN ×2 (16:41)
[2018-06-21] MEDS ORDERED: PANCREAZE DR 10,500 UNIT FEEDTUBE PRN (16:41)
== END 2018-06-21 18:40 | DRG 871 ==
LOC: ED 15:32 → IMCU 19:36 → 2B-ACE 06-19 12:00
PROVIDERS: ADMIT Internal Medicine; ATTEND Internal Medicine
DX: A41.9 Sepsis, unspecified organism (principal); J18.9 Pneumonia, unspecified organism; E43 Unspecified severe protein-calorie malnutrition; J95.00 Unspecified tracheostomy complication; N39.0 Urinary tract infection, site not specified; J96.10 Chronic respiratory failure, unspecified whether with hypoxia or hypercapnia; I69.354 Hemiplegia and hemiparesis following cerebral infarction affecting left non-dominant side; D72.829 Elevated white blood cell count, unspecified; I10 Essential (primary) hypertension; K21.9 Gastro-esophageal reflux disease without esophagitis; M19.90 Unspecified osteoarthritis, unspecified site; Z93.1 Gastrostomy status; Z68.22 Body mass index [BMI] 22.0-22.9, adult; Z82.49 Family history of ischemic heart disease and other diseases of the circulatory system
CPT/HCPCS: 36415; 71045; 80053; 81001; 82140; 82962; 83036; 83880; 85007; 85025; 87040; 87086; 94640; 94760; 96365; G0378; J0456; J0692; J0696; J1170; J1650; J2920; J2930; J7030; J7050